=== PATIENT | male | born 1965 | race Caucasian/White ===

== ENCOUNTER 2023-05-26 14:48 | Outpatient (RCR) | payer MEDICAID, SELFPAY | END 2023-06-21 15:38 | disposition home or self-care (01) | LOC: PT 14:48 | DX: M54.17 Radiculopathy, lumbosacral region (principal) | CPT/HCPCS: 97010; 97014; 97035; 97110; 97140; 97161 ==

== ENCOUNTER 2023-08-04 13:51 | Outpatient (OUT) | payer MEDICAID, SELFPAY ==
--- NOTE | 2023-08-04 14:01 | MR_ITS ---
[facility] [id number] Patient Name: ROSA MCNAMARA MRN: [id number] date: 1965 Sex: M Assigned Patient Location: MRI Current Patient Location: MRI Accession/Order Number: [id number] Exam Date: 08/04/2023 14:33 Report Date: 08/04/2023 15:49 At the request of: NON-STAFF PHYSICIAN Procedure: MR lumbar spine wo con TITLE: MR lumbar spine wo con COMPARISON: None. CLINICAL HISTORY: Chronic lower back pain. Right lower extremity weakness TECHNIQUE: Sagittal T1, sagittal T2 FSE, sagittal STIR, and axial T2 FSE. FINDINGS: Alignment is normal. There is no listhesis nor vertebral body height loss. The conus medullaris terminates at L1-2 and appears normal. There is disc desiccation lower 4 lumbar levels. Probable hemangiomas at T12, L2, and L5 T12-L1: Normal disc space. No stenosis L1-L2:Normal disc space. No stenosis. L2-3: Mild disc bulge. No significant stenosis L3-4: Mild disc bulge. Right posterior central annular tear with minimal disc protrusion. Bilateral facet hypertrophy. Hwrj-ey-uncliotf right lateral recess and foraminal narrowing L4-5: Diffuse disc bulge. Central disc protrusion. Bilateral facet hypertrophy. Mild to moderate lateral recess narrowing L5-S1: Disc bulge with mild left paracentral disc protrusion. Lateral osteophyte and disc formation with facet hypertrophy. Mild central stenosis. Zybk-ie-cfkzdoet lateral recess and moderate left-sided foraminal narrowing The visualized sacral joints appear unremarkable MR/MR lumbar spine wo con IMPRESSION: DEGENERATIVE CHANGES MOST MARKED LOWER 4 LUMBAR LEVELS. DISC BULGES, DISC SPACE NARROWING, DISC DESICCATION. NO SIGNIFICANT CENTRAL STENOSIS. SMALL ANNULAR TEAR L3-4 SMALL CENTRAL DISC PROTRUSION L4-5 AND L5-S1 FACET HYPERTROPHY LOWER 3 LUMBAR LEVELS. Electronically authenticated by: EDIE KNOWLES Date: 08/04/2023 15:49
== END 2023-08-04 13:52 | disposition home or self-care (01) ==
LOC: MRI 13:53
DX: M54.17 Radiculopathy, lumbosacral region (principal)
CPT/HCPCS: 72148

== ENCOUNTER 2023-08-30 19:18 | Emergency (ER) | payer MEDICAID, SELFPAY ==
[2023-08-30 19:22] VITALS: BP 174/78; PULSE 78; RESP 18; TEMP 36.8; O2SAT 97; BMI 32.5
[2023-08-30 19:29] VITALS: O2SAT 97
--- NOTE | 2023-08-30 20:23 | ED.EAR1 ---
HPI - Ear Problem General Chief complaint: Ear Stated complaint: EAR PAIN Time Seen by Provider: 08/30/23 20:08 Source: patient Mode of arrival: walk-in History of Present Illness HPI Narrative: presents complaining of right ear pain. States it started today. Describes pain radiating from his ear into his neck and then his chest. Admits the pain is now easing up. No fever or injury. no cough or dyspnea. No problem swallowing and hearing is normal. no dizziness MD Complaint: Reports ear pain Related Data Home Medications Medication Instructions Recorded Confirmed epinephrine 0.3 mg/0.3 mL 0.3 mg IM DAILY PRN anaphylaxis 08/30/23 08/30/23 injection, auto-injector latanoprost 0.005 % eye drops 1 drp ophthalmic (eye) .QHS 08/30/23 08/30/23 omeprazole 40 mg capsule,delayed 40 mg PO QAM 08/30/23 08/30/23 release rosuvastatin 5 mg tablet 5 mg PO DAILY 08/30/23 08/30/23 Allergies Allergy/AdvReac Type Severity Reaction Status Date / Time bee venom protein (honey bee) Allergy Severe Verified 08/30/23 19:26 Penicillins Allergy Severe Verified 08/30/23 19:26 Review of Systems ROS Status of ROS 10 or more systems reviewed and unremarkable except as noted in history and below Exam Constitutional Vital Signs, click to edit/add: Last Vital Signs Temp 98.2 F 08/30/23 19:22 Pulse 78 08/30/23 19:22 Resp 18 08/30/23 19:22 BP 174/78 H 08/30/23 19:22 Pulse Ox 97 08/30/23 19:29 O2 Del Method Room Air 08/30/23 19:29 Common normals: no apparent distress, average body habitus, oriented x3, no limitations, healthy appearing and alert [facility] Common normals: normocephalic and head/scalp atraumatic Other: right mandible tender at the angle of the mandible and reproduces symptoms ear exam is neg. pharynx is clear Eye Common normals: EOMs intact bilaterally and conjunctivae normal Chest Common normals: inspection of chest normal and palpation of chest normal Respiratory Common normals: normal respiratory effort, no retractions and no use of accessory muscles Cardio Common normals: regular rate, regular rhythm, S1 normal heart sound and S2 normal heart sound Extremity Common normals: normal to inspection and full ROM Neuro Common normals: oriented x3, CN's II-XII intact bilaterally, moves all extremities and no focal motor deficits Psych Appearance: grossly normal Course Vital Signs Vital signs: Vital Signs Temperature 98.2 F 08/30/23 19:22 Pulse Rate 78 08/30/23 19:22 Respiratory Rate 18 08/30/23 19:22 Blood Pressure 174/78 H 08/30/23 19:22 Pulse Oximetry 97 08/30/23 19:22 Oxygen Delivery Method Room Air 08/30/23 19:22 Temperature 98.2 F 08/30/23 19:22 Pulse Rate 78 08/30/23 19:22 Respiratory Rate 18 08/30/23 19:22 Blood Pressure 174/78 H 08/30/23 19:22 Pulse Oximetry 97 08/30/23 19:29 Oxygen Delivery Method Room Air 08/30/23 19:29 Medical Decision Making MDM Narrative Medical decision making narrative: patient presents complaining of pain of the right ear. Ear exam is neg. Found to have point tenderness of the right angle of the mandible that reproduces symptoms. States pain radiates from his mandible into his neck and then his chest. States the pain has gone away pretty much but the ear still hurts. With palpation of the mandible pain was reproducible. labs with mild elevation of CRP and cxray neg. Patient adivised to use ibuprofen if he needs to and to follow up with his doctor Discharge Plan Discharge Chief Complaint: Ear Clinical Impression: Mandible pain Patient Disposition: Home, Self-Care Prescriptions / Home Meds: No Action epinephrine 0.3 mg/0.3 mL auto-injector 0.3 mg IM DAILY PRN (Reason: anaphylaxis) latanoprost 0.005 % drops 1 drp OPHTHALMIC (EYE) .QHS omeprazole 40 mg capsule,delayed release(DR/EC) 40 mg PO QAM rosuvastatin 5 mg tablet 5 mg PO DAILY Instructions: Atypical Facial Pain (ED) Additional Instructions: use motrin or similar for pain and follow up with your doctor next week Stand Alone Forms: Portal Instructions Referrals: Britt Goodman [Primary Care Provider] - 1 week
--- NOTE | 2023-08-30 20:27 | XR_ITS ---
[facility] [id number] Patient Name: ROSA MCNAMARA MRN: [id number] date: 1965 Sex: M Assigned Patient Location: ER Current Patient Location: ER Accession/Order Number: [id number] Exam Date: 08/30/2023 20:48 Report Date: 08/30/2023 21:07 At the request of: MERCEDES ENRIQUEZ Procedure: XR chest 2V EXAM: XR chest 2V HISTORY: chest pain COMPARISON: 08/10/2022 TECHNIQUE: PA and lateral views of the chest FINDINGS: There is no focal airspace consolidation. The cardiomediastinal silhouette is not enlarged. There are stable eventration of right hemidiaphragm. No evidence of pleural effusion or pneumothorax are identified. No acute osseous abnormality. There is stable mild levoscoliosis and mild to moderate degenerative changes of thoracic spine. XR/XR chest 2V IMPRESSION: No acute cardiopulmonary process. . Electronically authenticated by: SHMUEL CAMERON Date: 08/30/2023 21:07
[2023-08-30 20:48] LABS: Basophils Absolute Auto 0.1 10^3/uL (0.0-0.1); Basophils Percent Auto 1.2 % (0.2-2.0); Eosinophils Absolute Auto 0.3 10^3/uL (0.0-0.7); Eosinophils Percent Auto 2.3 % (0.9-7.0); Hematocrit 40.6 % (42.0-54.0); Hemoglobin 13.8 g/dL (14.0-18.0); Immature Granulocytes Abs Auto 0.03 10^3/uL (0.00-0.03); Immature Granulocytes Pct Auto 0.3 % (0.0-0.5); Lymphocytes Absolute Auto 2.6 10^3/uL (1.2-3.8); Lymphocytes Percent Auto 23.2 % (20.5-60.0); Mean Corpuscular Volume 91.2 fL (80.0-94.0); Mean Platelet Volume 9.1 fL (9.5-13.5); Monocytes Absolute Auto 1.3 10^3/uL (0.3-0.8); Monocytes Percent Auto 11.6 % (1.7-12.0); Neutrophils Absolute Auto 6.8 10^3/uL (1.4-6.5); Neutrophils Percent Auto 61.4 % (43.0-75.0); Platelet Count 259 10^3/uL (150-450); Red Blood Count 4.45 10^6/uL (4.70-6.10); Red Cell Distribution Width 12.1 % (11.0-15.0); White Blood Count 11.1 10^3/uL (4.0-11.0)
[2023-08-30 20:59] LABS: Anion Gap 11.8; BUN Creatinine Ratio 15.4; C Reactive Protein 3.1 mg/dL (<=1.0); Calcium 8.5 mg/dL (8.5-10.1); Carbon Dioxide 24.8 mmol/L (21.0-32.0); Chloride 102 mmol/L (98-107); Estimated GFR (African America >60 (>=60); Estimated GFR (Non-African Ame >60 (>=60); Glucose 105 mg/dL (74-106); Potassium 3.6 mmol/L (3.5-5.1); Sodium 135 mmol/L (136-145)
== END 2023-08-30 21:47 | disposition home or self-care (01) ==
PROVIDERS: Emergency Provider Internal Medicine; PCP Family Medicine
DX: R68.84 Jaw pain (principal); Z79.899 Other long term (current) drug therapy
CPT/HCPCS: 36415; 71046; 80048; 85025; 86140; 99284

== ENCOUNTER 2023-12-08 11:36 | Outpatient (OUT) | payer MEDICAID, SELFPAY ==
--- OUTSIDE RECORDS SUMMARY | 2023-12-08 11:40 | XMS_ITS | CCD ---
Author Name Unknown Address [address] [facility] [address] [place] [address] Organization [facility] Care Team Providers Care Fire Controlman Name Role Phone Harvey Holt Unavailable NON STAFF Primary Care Provider UnavailDAPHNEY Sotelo Attending Provider Rumschlayamila, DO Britt Primary Care Provider Rex, DO Britt Primary Care Provider MD Josué Evangelista Attending Provider Rumcoco, DO Britt Primary Care Provider MD Josué Evangelista Attending Provider Candida Hinkle Admitting Unavailable Candida Hinkle Attending Unavailable NON STAFF Primary Care Unavailable Josué Evangelista Admitting Unavailable Josué Evangelista Attending Unavailable Rumschlag, Britt Primary Care Unavailable Josué Evangelista Admitting Unavailable Josué Evangelista Attending Unavailable Rumschlag, Britt Primary Care Unavailable Josué Evangelista Attending Unavailable Rumschlag, Britt Primary Care Unavailable Josué Evangelista Admitting Unavailable Candida Hinkle Admitting Unavailable Candida Hinkle Attending Unavailable Rumschlag, Britt Primary Care Unavailable Josué Evangelista Unavailable [facility] Primary Care Unava ilable MITCHELL TRAYLOR Admitting Unavailable MERCEDES ENRIQUEZ Consulting Unavailable MITCHELL TRAYLOR Attending Unavailable JONN HARGROVE Consulting Unavailable MITCHELL TRAYLOR Consulting Unavailable MISC, DR GARCIAS Attending Unavailable MISC, DR GARCIAS Consulting Unavailable [facility] Primary Care Unava ilable RADHA, DR GARCIAS Admitting Unavailable RUMSCHLAG, BRITT Primary Care Unavailable YVONNE CAMARENA Referring Unavailable YVONNE CAMARENA Referring Unavailable RUMSCHLAG, BRITT Primary Care Unavailable CANDIS RENTERIA Admitting Unavailable CANDIS RENTERIA Attending Unavailable BRITT PENALOZA Primary Care Unavailable Allergies Allergy Classification Reported Allergen(s) Allergy Type Date of Onset Reaction(s) Facility (7 sources) penicillAMINE Drug Allergy Unknown [facility] Other (7 sources) Bee Sting Drug allergy Unknown [facility] Other (5 sources) Penicillins; Translations: [Penicillins] Allergy to substance 10-02-20 21 Unknown Reaction [facility] (5 sources) venom-honey bee; Translations: [venom-honey bee] Allergy to substance 10-02-20 21 Swelling [facility] (1 source) bee venom Drug allergy (disorder) [facility] (1 source) Penicillin Drug Allergy [facility] Medications Current Medications Medication Drug Class(es) Dates Sig (Normalized) Sig (Original) acetaminophen 500 mg oral tablet (2 sources) Start: 01-13-2023 take 1000 mg by mouth twice daily Acetaminophen Active 1000 MG PO Twice daily January 13, 2023 1:00am Start: 01-13-2023 Acetaminophen (Tylenol Ex Str Arthritis Pain) 500 mg Tablet Active 1000 MG PO Twice daily January 13, 2023 12:00am 12 hr buPROPion hydrochloride 150 mg extended release oral tablet (4 sources) Aminoketone take 1 tablet by mouth once daily, then take 1 tablet by mouth twice daily buPROPion HCl ER (SR) 150 MG take 1 tablet by mouth daily for 1 week then take 1 tablet twice a day Oral for 30 Active calcium carbonate 500 mg chewable tablet (2 sources) Start: 01-14-20 take 1 tablet by mouth twice daily Calcium Carbonate (Tums) 200 mg calcium (500 mg) Tablet,Chewable Active 600 MG PO Twice daily January 13, 2023 1:00am cephalexin 500 mg oral capsule (1 source) Cephalosporin Antibacterial Start: 01-23-20 take 500 mg by mouth three times daily Cephalexin Active 500 MG PO Three times daily January 22, 2023 12:00am ibuprofen 200 mg oral tablet (2 sources) Nonsteroidal Anti-inflammatory Drug Start: 01-14-20 take 400 mg by mouth once daily Ibuprofen Active 400 MG PO Daily January 13, 2023 1:00am latanoprost 0.05 mg/ml ophthalmic solution (11 sources) Prostaglandin Analog Start: 10-02-20 take 1 drop(s) into the eye(s) once daily at bedtime Latanoprost Active 1 DROPS EYE-BOTH Daily at bedtime October 02, 2021 1:00am Latanoprost 0.00 5 % Ophthalmic for 25 Active Latanoprost 0.00 5 % Ophthalmic for 25 Active olopatadine 2 mg/ml ophthalmic solution (1 source) Histamine-1 Receptor Inhibitor Start: 01-22-2023 take 1 drop(s) into the eye(s) once daily Olopatadine Active 1 DROPS EYE-BOTH Daily January 22, 2023 12:00am oxyCODONE hydrochloride 5 mg oral tablet (5 sources) Opioid Agonist Start: 01-22-2023 take 5-10 mg by mouth every six hours Oxycodone Active 5 - 10 MG PO Q6H 25 8 January 22, 2023 Start: 10-17-2021 End: 01-13-2023 take 5 mg by mouth every four to six hours Oxycodone Discontinued 5 MG PO EVERY 4-6 HOURS 70 14 October 17, 2021 January 13, 2023 9:23am rosuvastatin calcium 5 mg oral tablet (5 sources) HMG-CoA Reductase Inhibitor Start: 01-13-2023 take 5 mg by mouth once daily Rosuvastatin Active 5 MG PO Daily January 13, 2023 1:00am Completed/Discontinued Medications Medication Drug Class(es) Dates Sig (Normalized) Sig (Original) diazePAM 5 mg oral tablet (4 sources) Benzodiazepine Start: 10-17-2021 End: 01-13-2023 take 5 mg by mouth four times daily Diazepam Discontinued 5 MG PO Four times daily 40 10 October 17, 2021 1:00am January 13, 2023 9:23am Problems Active Problems Problem Classification Problem Date Documented Da te Episodic/Chronic Esophageal disorders (1 source) Gastro-esophageal reflux disease without esophagitis; Translations: [Gastro-esophageal reflux disease without esophagitis] Onset: 10-15-2023 Chronic Gastrointestinal hemorrhage (1 source) Melena; Translations: [Melena] Onset: 10-14-2023 Episodic Other gastrointestinal disorders (1 source) Flatulence; Translations: [Flatulence] Onset: 10-15-2023 Episodic Other gastrointestinal disorders (1 source) Gas pain; Translations: [Gas pain] Onset: 10-15-2023 Episodic Other gastrointestinal disorders (1 source) Eructation; Translations: [Eructation] Onset: 10-15-2023 Episodic Other nervous system disorders (5 sources) Ulnar neuropathy; Translations: [Lesion of ulnar nerve, right upper limb] Chronic Other nervous system disorders (7 sources) Lesion of ulnar nerve, right upper limb; Translations: [Entrapment of right ulnar nerve at elbow] Onset: 01-14-2022 Resolved: 03-13-2022 Chronic Residual codes; unclassified (4 sources) Obstructive sleep apnea (adult) (pediatric); Translations: [OBSTRUCTIVE SLEEP APNEA] Onset: 03-04-2023 Chronic Spondylosis; intervertebral disc disorders; other back problems (20 sources) Prolapsed cervical intervertebral disc; Translations: [Other cervical disc displacement, unspecified cervical region] Onset: 09-19-2021 Resolved: 03-13-2022 Chronic Unclassified (1 source) Lesion of ulnar nerve, right upper limb; Translations: [Lesion of ulnar nerve, right upper limb] Onset: 01-22-2023 Unclassified (1 source) Encounter for preprocedural laboratory examination; Translations: [Encounter for preprocedural laboratory examination] Onset: 01-13-2023 Past or Other Problems Problem Classification Problem Date Documented Da te Episodic/Chronic Nonspecific chest pain (1 source) Other chest pain; Translations: [OTHER CHEST PAIN] Onset: 08-12-2022 Episodic Other connective tissue disease (3 sources) Pain in left upper arm; Translations: [PAIN IN LEFT UPPER ARM] Onset: 08-10-2022 Episodic Residual codes; unclassified (1 source) Other amnesia; Translations: [Other amnesia] Onset: 06-21-2022 Episodic Results Test Name Value Interpretation Reference Range Facility H. pylori Antigenon 10-16-20 H. pylori Antigen Specimen Description .FECES Direct Exam NEGATIVE Report Status FINAL 10/16/2023 Normal [facility] Comment on above: Performed By: #### F HPY #### [facility] [employer] [address] [place] [address] Wheat Farmer: Guy Ramey MD [facility] [address] [place] [address] Wheat Farmer: Justus Darby MD Surgical Pathology Reporton 10-15-2023 Surgical Pathology Report (NOTE) Path Number: [id number] -- Diagnosis -- A. 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 No dysplasia seen. B. Stomach, antrum, endoscopic biopsy: Superficial gastric antral mucosa with no specific abnormality, negative for Helicobacter pylori. Dianelys Mcgraw. Electronically Signed Out sf/10/17/2023 Clinical Information Pre-op Diagnosis: GASTROESOPHAGEAL REFLUX DISEASE, UNSPECIFIED WHETHER ESOPHAGITIS PRESENT Operative Findings: GE JUNCTION BIOPSY; GASTRIC ANTRUM BIOPSY Operation Performed: EGD BIOPSY tm Source of Specimen A: GE JUNCTION BX B: GASTRIC ANTRUM BIOPSY Gross Description A. ROSA EASTMAN GE JUNCTION BIOPSY Received in formalin are four gutierrez-white tissue fragments each 0.2 cm and are 0.4 x 0.2 x 0.1 cm in aggregate. Entirely 1cs. B. ROSA EASTMAN GASTRIC ANTRUM BIOPSY Received in formalin are two gutierrez-white tissue fragments from 0.3 to 0.4 cm and are 0.4 x 0.4 x 0.2 cm in aggregate. Entirely 1cs. lm tm SF/tb1:10/16/2023 Microscopic Description A, B. 2 DENNISE reviewed for each. Microscopic examination performed. Processing Lab: [address] [id number] Interpretation Performed at [address] SURGICAL PATHOLOGY CONSULTATION Patient Name: ROSA EASTMAN [facility] Rec: [id number] [facility] [employer] [facility] ANATOMIC PATHOLOGY [address] [place] [address]. [address] Normal [facility] CBC with Diffon 10-14-2023 Abs. Basophil 0.17 k/uL Normal 0.00-0.20 [facility] Comment on above: Performed By: #### C DP #### [facility] [address] [place] [address] Wheat Farmer: Justus Darby MD Abs.Imm.Granulocyte 0.04 k/uL Normal 0.00-0.30 [facility] Comment on above: Performed By: #### C DP #### [facility] [address] [place] [address] Dr. [place], [place] [address] Wheat Farmer: Justus Darby MD Abs.Neutrophil (Seg) 5.08 k/uL Normal 1.50-8.10 [facility] Comment on above: Performed By: #### C DP #### [address] [place], [place] [address] Wheat Farmer: Justus Darby MD Basophils/100 WBC (Bld) 2 % Normal 0-2 [facility] Comment on above: Performed By: #### C DP #### [address] [place] [place] [address] Wheat Farmer: Justus Darby MD Eosinophils (Bld) [#/Vol] 0.43 10*3/uL Normal 0.00-0.44 [facility] Comment on above: Performed By: #### C DP #### [address] [place], [place] [address] Wheat Farmer: Justus Darby MD Eosinophils/100 WBC (Bld) 4 % Normal 1-4 [facility] Comment on above: Performed By: #### C DP #### [facility] [address] [place] [address] Dr. Garcia, [place] [address] Wheat Farmer: Justus Darby MD Erythrocyte distribution width (RBC) [Ratio] 12.3 % Normal 11.8-14.4 [facility] Comment on above: Performed By: #### C DP #### [address] [place], [place] [address] Wheat Farmer: Justus Darby MD Hematocrit (Bld) [Volume fraction] 44.4 % Normal 40.7-50.3 [facility] Comment on above: Performed By: #### C DP #### [facility] [address] [place], [place] [phone] Wheat Farmer: Justus Darby MD Hemoglobin (Bld) [Mass/Vol] 14.6 g/dL Normal 13.0-17.0 [facility] Comment on above: Performed By: #### C DP #### [facility] [address] [place] [phone] Wheat Farmer: Justus Darby MD Immature granulocytes/100 WBC (Bld) 0 % Normal 0 [facility] Comment on above: Performed By: #### C DP #### [facility] [address] [place], [id number] Wheat Farmer: Justus Darby MD Lymphocytes (Bld) [#/Vol] 3.86 10*3/uL High 1.10-3.70 [facility] Comment on above: Performed By: #### C DP #### [facility] [address] [place], [place] [phone] Wheat Farmer: Justus Darby MD Lymphocytes/100 WBC (Bld) 36 % Normal 24-43 [facility] Comment on above: Performed By: #### C DP #### [facility] [address] [place], [place] [phone] Wheat Farmer: Justus Darby MD MCH (RBC) [Entitic mass] 30.9 pg Normal 25.2-33.5 [facility] Comment on above: Performed By: #### C DP #### [facility] [address] [place], [place] [phone] Wheat Farmer: Justus Darby MD MCHC (RBC) [Mass/Vol] 32.9 g/dL Normal 28.4-34.8 [facility] Comment on above: Performed By: #### C DP #### [facility] [address] [place], [place] [phone] Wheat Farmer: Justus Darby MD MCV (RBC) [Entitic vol] 93.9 fL Normal 82.6-102.9 [facility] Comment on above: Performed By: #### C DP #### [facility] [address] [place], [place] [phone] Wheat Farmer: Justus Darby MD Monocytes (Bld) [#/Vol] 1.05 10*3/uL Normal 0.10-1.20 [facility] Comment on above: Performed By: #### C DP #### [facility] [address] [place], [place] [phone] Wheat Farmer: Justus Darby MD Monocytes/100 WBC (Bld) 10 % Normal 3-12 [facility] Comment on above: Performed By: #### C DP #### [address] [place], [place] [phone] Wheat Farmer: Justus Darby MD Neutrophil (Seg) 48 % Normal 36-65 [facility] Comment on above: Performed By: #### C DP #### [address] [place], [place] [phone] Wheat Farmer: Justus Darby MD NRBC Automated 0.0 per 100 WBC Normal 0.0 [facility] Comment on above: Performed By: #### C DP #### [address] [place], [id number] Wheat Farmer: Justus Darby MD Platelet mean volume (Bld) [Entitic vol] 9.6 fL Normal 8.1-13.5 [facility] Comment on above: Performed By: #### C DP #### [address] [place] [address] Wheat Farmer: Justus Darby MD Platelets (Bld) [#/Vol] 297 10*3/uL Normal 138-453 [facility] Comment on above: Performed By: #### C DP #### [facility] [address] [place] [address] Wheat Farmer: Justus Darby MD RBC (Bld) [#/Vol] 4.73 10*6/uL Normal 4.21-5.77 [facility] Comment on above: Performed By: #### C DP #### [facility] [address] [place] [address] Wheat Farmer: Justus Darby MD WBC (Bld) [#/Vol] 10.6 10*3/uL Normal 3.5-11.3 [facility] Comment on above: Performed By: #### C DP #### [facility] [address] [place] [address] Wheat Farmer: Justus Darby MD Basic Metabolic Panelon 03-0 Anion gap [Moles/Vol] 9.8 mmol/L Normal 6.0-15.0 [facility] Comment on above: Performed By: #### C BC, BMP #### [facility] [address] [place] [address] [facility] Calcium [Mass/Vol] 9.1 mg/dL Normal 8.2-10.2 [facility] Comment on above: Result Comment: PERF ORMED BY: [place] [address] PATHOLOGIST INSTRUMENT WORKER GENEVIEVE CANNON M.D. Performed By: #### C BC, BMP #### [facility] [address] [place] [address] [place] Chloride [Moles/Vol] 104 mmol/L Normal 95-114 [facility] Comment on above: Performed By: #### C BC, BMP #### [facility] [address] [place] [address] [place] CO2 [Moles/Vol] 25.9 mmol/L Normal 22.0-30.0 [facility] Comment on above: Performed By: #### C BC, BMP #### [facility] [address] [place] [address] [place] Creatinine [Mass/Vol] 0.98 mg/dL Normal 0.64-1.27 [facility] Comment on above: Performed By: #### C BC, BMP #### [address] Estimated GFR ( Camila > 60 Normal [facility] Comment on above: Result Comment: GFR estimated reference range: According to KDOQI guidelines, <60 ml/min/1.73m2 is sufficient to diagnose a patient with chronic kidney disease. Performed By: #### C BC, BMP #### [address] Estimated GFR (Non- Am > 60 Normal [facility] Comment on above: Performed By: #### C BC, BMP #### [address] Glucose [Mass/Vol] 82 mg/dL Normal 70-100 [facility] Comment on above: Result Comment: [place] om Glucose Reference Range is dependent on time and content of last meal. Glucose of more than 200 mg/dL in a nonstressed, ambulatory subject supports the diagnosis of Diabetes Mellitus. ADA recommended reference range Performed By: #### C BC, BMP #### [address] Potassium [Moles/Vol] 3.7 mmol/L Normal 3.5-5.1 [facility] Comment on above: Performed By: #### C BC, BMP #### [address] Sodium [Moles/Vol] 136 mmol/L Normal 136-146 [facility] Comment on above: Performed By: #### C BC, BMP #### [address] Urea nitrogen [Mass/Vol] 11 mg/dL Normal 9-23 [facility] Comment on above: Performed By: #### C BC, BMP #### [address] Basophils Auto (Bld) [#/Vol] Ordered By: Josué Evangelista on 01-13-2023 Basophils (Bld) [#/Vol] 0.1 10*3/uL 0.0-0.2 [facility] Basophils/100 WBC Auto (Bld) Ordered By: Josué Evangelista on 01-13-2023 Basophils/100 WBC (Bld) 1.2 % . F [facility] Calcium [Mass/volume] in Ser um or PlasmaOrdered By: Josué Evangelista on 01-13-2023 Calcium [Mass/Vol] 9.1 mg/dL 8.2-10.2 [facility] Carbon dioxide, total [Moles /volume] in Serum or PlasmaOrdered By: Josué Evangelista on 01-13-2023 CO2 [Moles/Vol] 25.9 mmol/L 22.0-30.0 [facility] Chloride [Moles/volume] in S lai or PlasmaOrdered By: Josué Evangelista on 01-13-2023 Chloride [Moles/Vol] 104 mmol/L 95-114 [facility] Complete Blood Count Auto Di ffon 01-13-2023 Basophils (Bld) [#/Vol] 0.1 10*3/uL Normal 0.0-0.2 [facility] Comment on above: Result Comment: PERF ORMED BY: [place] [address] PATHOLOGIST INSTRUMENT WORKER GENEVIEVE CANNON M.D. Performed By: #### C MICHELLE, BMP #### [facility] [address] Basophils/100 WBC (Bld) 1.2 % Normal . [facility] Comment on above: Performed By: #### C BC, BMP #### [facility] [address] [place] [address] [place] Eosinophils (Bld) [#/Vol] 0.5 10*3/uL High 0.0-0.45 [facility] Comment on above: Performed By: #### C BC, BMP #### [facility] [address] [place] [address] [place] Eosinophils/100 WBC (Bld) 4.7 % Normal . [facility] Comment on above: Performed By: #### C BC, BMP #### [facility] [address] Erythrocyte distribution width (RBC) [Ratio] 12.6 % Normal 12.0-14.8 [facility] Comment on above: Performed By: #### C BC, BMP #### [facility] [address] Hematocrit (Bld) [Volume fraction] 41.2 % Normal 38.8-50.0 [facility] Comment on above: Performed By: #### C BC, BMP #### [facility] [address] Hemoglobin (Bld) [Mass/Vol] 14.1 g/dL Normal 13.0-17.0 [facility] Comment on above: Performed By: #### C BC, BMP #### [address] Lymphocytes (Bld) [#/Vol] 3.4 10*3/uL Normal 1.00-4.8 [facility] Comment on above: Performed By: #### C BC, BMP #### [address] Lymphocytes/100 WBC (Bld) 33.3 % Normal . [facility] Comment on above: Performed By: #### C BC, BMP #### [address] MCH (RBC) [Entitic mass] 31.7 pg Normal 27.5-35.2 [facility] Comment on above: Performed By: #### C BC, BMP #### [facility] [address] MCV (RBC) [Entitic vol] 92.3 fL Normal 83.5-101 F [facility] Comment on above: Performed By: #### C BC, BMP #### [facility] [address] Mean Corpuscular HGB Conc 34.4 g/dL Normal 32.5-35.6 [facility] Comment on above: Performed By: #### C BC, BMP #### [facility] [address] [place] [address] [place] Monocytes (Bld) [#/Vol] 1.0 10*3/uL High 0.0-0.8 [facility] Comment on above: Performed By: #### C BC, BMP #### [facility] [address] [place] [address] [place] Monocytes/100 WBC (Bld) 10.1 % Normal . [facility] Comment on above: Performed By: #### C BC, BMP #### [facility] [address] [place] [address] [place] Neutrophils (Bld) [#/Vol] 5.2 10*3/uL Normal 1.8-7.7 [facility] Comment on above: Performed By: #### C BC, BMP #### [facility] [address] Neutrophils/100 WBC (Bld) 50.7 % Normal . [facility] Comment on above: Performed By: #### C BC, BMP #### [facility] [address] [place] [address] [place] NRBC% 0.1 /100{WBC} Normal 0-0.5 [facility] Comment on above: Performed By: #### C BC, BMP #### [facility] [address] [place] [address] [place] Platelet mean volume (Bld) [Entitic vol] 7.8 fL Normal 6.6-10.1 [facility] Comment on above: Performed By: #### C BC, BMP #### [facility] [address] [place] [address] [place] Platelets (Bld) [#/Vol] 268 10*3/uL Normal 150-450 [facility] Comment on above: Performed By: #### C BC, BMP #### [facility] [address] [place] [address] [place] RBC (Bld) [#/Vol] 4.46 10*6/uL Normal 3.90-5.60 [facility] Comment on above: Performed By: #### C BC, BMP #### [facility] [address] WBC (Bld) [#/Vol] 10.3 10*3/uL Normal 4.1-10.5 [facility] Comment on above: Performed By: #### C MICHELLE, BMP #### [facility] [address] [place] [address] Creatinine and Glomerular fi ltration rate.predicted panel (S/P/Bld)Ordered By: Josué Evangelista on 01-13-2023 Creatinine [Mass/Vol] 0.98 mg/dL 0.64-1.27 [facility] ECG 12 lead ECGon 01-13-2023 ECG 12 lead ECG [facility] [address] [place] [address] [place] [address] Electrocardiograph Report Signed Patient: Rosa Eastman MR#: [id number] : [id number] Acct:[id number] Age/Sex: 57 / M ADM Date: 01/13/23 Loc: Room: Type: [employer] Attending Dr: Josué Evangelista MD Ordering Provider: Josué Evangelista MD Date of Service: 01/13/2305/02/758 ECG/ECG 12 lead ECG: surgery 01-22-2023 Copies to: Test Reason : Blood Pressure : / mmHG Vent. Rate : 068 BPM Atrial Rate : 068 BPM P-R Int : 158 ms QRS Dur : 096 ms QT Int : 424 ms P-R-T Axes : 036 043 038 degrees QTc Int : 450 ms Normal sinus rhythm Normal ECG When compared with ECG of 02-OCT-2021 15:20, No significant change was found Confirmed by MARYLIN EISENBERG MD ([id number]) on 01/14/2023 3:34:12 PM Referred By: DR EVANGELISTA Electronically Signed By:MARYLIN EISENBERG MD Transcribed By: MUS Signed By Marylin Eisenberg MD 0 01/14/23 1534 Normal [facility] Eosinophils Auto (Bld) [#/Vo l]Ordered By: Josué Evangelista on 01-13-2023 Eosinophils (Bld) [#/Vol] 0.5 10*3/uL 0.0-0.45 [facility] Eosinophils/100 WBC Auto (Bl d)Ordered By: Josué Evangelista on 01-13-2023 Eosinophils/100 WBC (Bld) 4.7 % . [facility] Erythrocyte distribution wid th Auto (RBC) [Ratio]Ordered By: oJsué Evangelista on 01-13-2023 Erythrocyte distribution width (RBC) [Ratio] 12.6 % 12.0-14.8 [facility] Estimated glomerular filtrat ion rate (GFR) non- AmericanOrdered By: Josué Evangelista on 01-13-2023 GFR/1.73 sq M.predicted among non-blacks MDRD (S/P/Bld) [Vol rate/Area] > 60 mL/Min [facility] Glucose [Mass/volume] in Ser um or PlasmaOrdered By: Josué Evangelista on 01-13-2023 Glucose [Mass/Vol] 82 mg/dL 70-100 [facility] Comment on above: ADA recommended refe rence rangeRandom Glucose Reference Range is dependent on time and content of last meal. Glucose of more than 200 mg/dL in a nonstressed, ambulatory subject supports the diagnosis of Diabetes Mellitus. Hematocrit Auto (Bld) [Volum e fraction]Ordered By: Josué Evangelista on 01-13-2023 Hematocrit (Bld) [Volume fraction] 41.2 % 38.8-50.0 [facility] Hemoglobin [Mass/volume] in BloodOrdered By: Josué Evangelista on 01-13-2023 Hemoglobin (Bld) [Mass/Vol] 14.1 g/dL 13.0-17.0 [facility] Leukocytes [#/volume] correc lesly for nucleated erythrocytes in Blood by Automated counOrdered By: Josué Evangelista on 01-13-2023 WBC corrected for nucl RBC Auto (Bld) [#/Vol] 10.3 10*3/uL 4.1-10.5 [facility] Lymphocytes Auto (Bld) [#/Vo l]Ordered By: Josué Evangelista on 01-13-2023 Lymphocytes (Bld) [#/Vol] 3.4 10*3/uL 1.00-4.8 [facility] Lymphocytes/100 WBC Auto (Bl d)Ordered By: Josué Evangelista on 01-13-2023 Lymphocytes/100 WBC (Bld) 33.3 % . [facility] MCH Auto (RBC) [Entitic mass ]Ordered By: Josué Evangleista on 01-13-2023 MCH (RBC) [Entitic mass] 31.7 pg 27.5-35.2 [facility] MCHC Auto (RBC) [Mass/Vol]Or dered By: Josué Evangelista on 01-13-2023 MCHC (RBC) [Mass/Vol] 34.4 g/dL 32.5-35.6 [facility] MCV Auto (RBC) [Entitic vol] Ordered By: Josué Evangelista on 01-13-2023 MCV (RBC) [Entitic vol] 92.3 fL 83.5-101 [facility] Monocytes Auto (Bld) [#/Vol] Ordered By: Josué Evangelista on 01-13-2023 Monocytes (Bld) [#/Vol] 1.0 10*3/uL 0.0-0.8 [facility] Monocytes/100 WBC Auto (Bld) Ordered By: Josué Evangelista on 01-13-2023 Monocytes/100 WBC (Bld) 10.1 % . [facility] Neutrophils Auto (Bld) [#/Vo l]Ordered By: Josué Evangelista on 01-13-2023 Neutrophils (Bld) [#/Vol] 5.2 10*3/uL 1.8-7.7 [facility] Neutrophils/100 WBC Auto (Bl d)Ordered By: Josué Evangelista on 01-13-2023 Neutrophils/100 WBC (Bld) 50.7 % . [facility] No Panel InformationOrdered By: Josué Evangelista on 01-13-2023 Estimated GFR () > 60 mL/Min [facility] Comment on above: GFR estimated refere nce range: According to KDOQI guidelines, <60 ml/min/1.73m2 is sufficient to diagnose a patient with chronic kidney disease. Pharmacy Creatinine Clearance (Chem N/A [facility] Nucleated erythrocytes [Pres ence] in Blood by Automated countOrdered By: Josué Evangelista on 01-13-2023 Nucleated RBC Auto Ql (Bld) 0.1 /100{WBC} 0-0.5 [facility] Platelet mean volume Auto (B ld) [Entitic vol]Ordered By: Josué Evangelista on 01-13-2023 Platelet mean volume (Bld) [Entitic vol] 7.8 fL 6.6-10.1 [facility] Platelets Auto (Bld) [#/Vol] Ordered By: Josué Evangelsita on 01-13-2023 Platelets (Bld) [#/Vol] 268 10*3/uL 150-450 [facility] Potassium [Moles/volume] in Serum or PlasmaOrdered By: Josué Evangelista on 01-13-2023 Potassium [Moles/Vol] 3.7 mmol/L 3.5-5.1 [facility] RBC Auto (Bld) [#/Vol]Ordere d By: Josué Evangelista on 01-13-2023 RBC (Bld) [#/Vol] 4.46 10*6/uL 3.90-5.60 [facility] Serum or plasma anion gap de terminationOrdered By: Josué Evangelista on 01-13-2023 Anion gap [Moles/Vol] 9.8 mmol/L 6.0-15.0 [facility] Sodium [Moles/volume] in Ser um or PlasmaOrdered By: Josué Evangelista on 01-13-2023 Sodium [Moles/Vol] 136 mmol/L 136-146 [facility] Urea nitrogen [Mass/volume] in Serum or PlasmaOrdered By: Josué Evangelista on 01-13-2023 Urea nitrogen [Mass/Vol] 11 mg/dL 9-23 [facility] WBC Auto (Bld) [#/Vol]Ordere d By: Josué Evangelista on 01-13-2023 WBC (Bld) [#/Vol] 10.3 10*3/uL 4.1-10.5 [facility] XR cerv spine AP/LAT/FLX/EXT on 12-06-2022 XR cerv spine AP/LAT/FLX/EXT [address] [address] XRay Report Signed Patient: Rosa Eastman MR#: [id number] 864 : 1965 Acct:[id number] Age/Sex: 57 / M ADM Date: 12/06/22 Loc: XD Room: Type: [facility] Attending Dr: Josué Evangelista MD Copies to: Josué vEangelista MD Ordering Provider: Josué Evangelista MD Date of Service: 12/06/22 XR/XR cerv spine AP/LAT/FLX/EXT: M47.12 AP with lateral neutral, flexion and extension views of thecervical spine HISTORY: Numbness in the right fifth digit COMPARISON: 01/14/2022 Bony alignment is stable. No hypermobility seen with flexion and extension views. C3-4 anterior interbody fusion changes are stable. Similar C4-5 and C5-6 and C6-7 anterior hyperostosis present. No acute cervical spine fracture identified. No cervical spine listhesis identified. Similar minor spondylosis. Similar mild facet degeneration. The dens is intact. The craniocervical junction is unremarkable. No paraspinal soft tissue abnormality seen. XR/XR cerv spine AP/LAT/FLX/EXT IMPRESSION: No hypermobility. Stable postoperative changes and degenerative changes and hyperostosis. Impression dictated by: Erasmo Maddox M.D.12/06/2022 2:26 PM Dictation Location: [place] [address] Transcribed By: [facility] 12/06/221425 Dictated By: Erasmo Maddox DO 12/06/221421 Signed By: 12/06/22 142 [facility] CBC AUTO DIFFon 08-10-2022 BASO # 0.2 103/ul Critically high 0.0-0.1 [facility] Comment on above: Performed By: #### C BC #### [facility] [address] [address] [address] Mars Sanders Basophils/100 WBC (Bld) 2.0 % Normal 0.2-2.0 [facility] Comment on above: Performed By: #### C BC #### [facility] [address] [address] [address] Mars Sanders EO # 0.5 103/ul Normal 0.0-0.7 [facility] Comment on above: Performed By: #### C BC #### [facility] [address] [place] [address] Dr. Mars Sanders Eosinophils/100 WBC (Bld) 5.7 % Normal 0.9-7.0 [facility] Comment on above: Performed By: #### C BC #### [facility] [address] [place] [address] Dr. Mars Sanders Erythrocyte distribution width (RBC) [Ratio] 12.4 % Normal 11.0-15.0 [facility] Comment on above: Performed By: #### C BC #### [facility] [address] [place] [address] Dr. Mars Sanders Hematocrit (Bld) [Volume fraction] 41.8 % Critically low 42.0-54.0 [facility] Comment on above: Performed By: #### C BC #### [facility] [address] [place] [address] Dr. Mars Sanders Hemoglobin (Bld) [Mass/Vol] 14.0 g/dL Normal 14.0-18.0 [facility] Comment on above: Performed By: #### C BC #### [facility] [address] [place] [address] Dr. Mars Sanders IG # 0.02 10e3/ul Normal 0.00-0.03 [facility] Comment on above: Performed By: #### C BC #### [facility] [address] [place] [address] Dr. Mars Sanders IG % 0.2 % Normal 0.0-0.5 [facility] Comment on above: Performed By: #### C BC #### [facility] [address] [place] [address] Dr. Mars Sanders LYMPH # 3.1 103/ul Normal 1.2-3.8 [facility] Comment on above: Performed By: #### C BC #### [facility] [address] [place] [address] Dr. Mars Sanders Lymphocytes/100 WBC (Bld) 36.3 % Normal 20.5-60.0 [facility] Comment on above: Performed By: #### C BC #### [facility] [address] [place] [address] Dr. Mars Sanders MANUAL DIFF REQ NO Normal [facility] Comment on above: Performed By: #### C BC #### [facility] [address] [place] [address] Dr. Mars Sanders MCH (RBC) [Entitic mass] 31.4 pg Normal 25.9-34.0 [facility] Comment on above: Performed By: #### C BC #### [facility] [address] [place] [address] Dr. Mars Sanders MCHC (RBC) [Mass/Vol] 33.5 g/dL Normal 29.9-35.2 [facility] Comment on above: Performed By: #### C BC #### [facility] [address] [place] [address] Dr. Mars Sanders MCV (RBC) [Entitic vol] 93.7 fL Normal 80.0-94.0 [facility] Comment on above: Performed By: #### C BC #### [facility] [address] [place] [address] Dr. Mars Sanders MONO # 0.8 103/ul Normal 0.3-0.8 [facility] Comment on above: Performed By: #### C BC #### [facility] [address] [place] [address] Dr. Mars Sanders Monocytes/100 WBC (Bld) 10.0 % Normal 1.7-12.0 [facility] Comment on above: Performed By: #### C BC #### [facility] [address] [place] [address] Dr. Mars Sanders NEUT # 3.9 103/ul Normal 1.4-6.5 [facility] Comment on above: Performed By: #### C BC #### [facility] [address] [place] [address] Dr. Mars Sanders Neutrophils/100 WBC (Bld) 45.8 % Normal 43.0-75.0 [facility] Comment on above: Performed By: #### C BC #### [facility] [address] [place], [place] [id number] Dr. Mars Sanders Platelet mean volume (Bld) [Entitic vol] 9.4 fL Critically low 9.5-13.5 [facility] Comment on above: Performed By: #### C BC #### [facility] [address] [place] [address] Dr. Mars Sanders PLT 251 103/ul Normal 150-450 [facility] Comment on above: Performed By: #### C BC #### [facility] [address] [address] [address] Mars Sanders RBC 4.46 106/ul Critically low 4.70-6.10 [facility] Comment on above: Performed By: #### C BC #### [facility] [address] [place] [address] Dr. Mars Sanders WBC 8.4 103/ul Normal 4.0-11.0 [facility] Comment on above: Performed By: #### C BC #### [facility] [address] [place] [address] Dr. Mars Sanders D-DIMERon 08-10-2022 D-DIMER 0.35 mg/L FEU Normal <=0.59 [facility] Comment on above: Performed By: #### D DIM #### [facility] [address] [place] [address] Dr. Mars Sanders D-DIMER COMMENTS SEE BELOW Normal [facility] Comment on above: Result Comment: Incr eases in D-Dimer concentration observed with thromboembolic events can be variable due to localization, size, and age of the thrombus. Therefore, a thromboembolic event cannot be diagnosed with certainty on the basis of the reference range. D-Dimers may also be elevated for a variety of disorders including: advanced age, , coronary disease, cancer, liver disease, infection, inflammation, hematoma, DIC, trauma, post-surgery, diabetes, thrombolytic or anticoagulant therapy, stress, and generalized hospitalization. Performed By: #### D DIM #### [facility] [address] [place] [address] Dr. Mars Sanders PROF 14(COMP METB)on 022 Albumin [Mass/Vol] 3.8 g/dL Normal 3.4-5.0 [facility] Comment on above: Performed By: #### H STROPN, CMP #### [facility] [address] [address] [address] Mars Sanders Albumin/Globulin [Mass ratio] 1.0 {ratio} Normal [facility] Comment on above: Performed By: #### H STROPN, CMP #### [facility] [address] [address] [address] Mars Sanders ALP [Catalytic activity/Vol] 127 U/L Critically high 46-116 [facility] Comment on above: Performed By: #### H STROPN, CMP #### [facility] [address] [place] [address] Dr. Mars Sanders ALT [Catalytic activity/Vol] 30 U/L Normal 16-63 [facility] Comment on above: Performed By: #### H STROPN, CMP #### [facility] [address] [place] [address] Dr. Mars Sanders Anion gap [Moles/Vol] 13.5 mmol/L Normal [facility] Comment on above: Performed By: #### H STROPN, CMP #### [facility] [address] [place] [address] Dr. Mars Sanders AST [Catalytic activity/Vol] 20 U/L Normal 15-37 [facility] Comment on above: Performed By: #### H STROPN, CMP #### [facility] [address] [address] [address] Mars Sanders Bilirubin [Mass/Vol] 0.3 mg/dL Normal 0.2-1.0 [facility] Comment on above: Performed By: #### H STROPN, CMP #### [facility] [address] [address] [address] Mars Sanders Calcium [Mass/Vol] 8.7 mg/dL Normal 8.5-10.1 [facility] Comment on above: Performed By: #### H STROPN, CMP #### [facility] [address] [address] [address] Mars Sanders Chloride [Moles/Vol] 105 mmol/L Normal 98-107 [facility] Comment on above: Performed By: #### H STROPN, CMP #### [facility] [address] [address] [address] Mars Sanders CO2 [Moles/Vol] 25.4 mmol/L Normal 21.0-32.0 [facility] Comment on above: Performed By: #### H STROPN, CMP #### [facility] [address] [address] [address] Mars Sanders Creatinine [Mass/Vol] 0.98 mg/dL Normal 0.70-1.30 [facility] Comment on above: Performed By: #### H STROPN, CMP #### [facility] [address] [place] [address] Dr. Mars Sanders EGFR-AF ARGENTINE >60 Normal >=60 [facility] Comment on above: Performed By: #### H STROPN, CMP #### [facility] [address] [place] [address] Dr. Mars Sanders EGFR-NON AF ARGENTINE >60 Normal >=60 [facility] Comment on above: Performed By: #### H STROPN, CMP #### [facility] [address] [place] [address] Dr. Mars Sanders Globulin (S) [Mass/Vol] 3.9 g/dL Normal [facility] Comment on above: Performed By: #### H STROPN, CMP #### [facility] [address] [address] [address] Mars Sanders Glucose [Mass/Vol] 102 mg/dL Normal 74-106 [facility] Comment on above: Performed By: #### H STROPN, CMP #### [facility] [address] [address] [address] Mars Sanders Potassium [Moles/Vol] 3.9 mmol/L Normal 3.5-5.1 [facility] Comment on above: Performed By: #### H STROPN, CMP #### [facility] [address] [address] [address] Mars Sanders Protein [Mass/Vol] 7.7 g/dL Normal 6.4-8.2 [facility] Comment on above: Performed By: #### H ALESSIO, CMP #### [facility] [address] [place] [address] Dr. Mars Sanders Sodium [Moles/Vol] 140 mmol/L Normal 136-145 [facility] Comment on above: Performed By: #### H ALESSIO, CMP #### [facility] [address] [place] [address] Dr. Mars Sanders Urea nitrogen [Mass/Vol] 14.0 mg/dL Normal 7.0-18.0 [facility] Comment on above: Performed By: #### H ALESSIO, CMP #### [facility] [address] [place] [address] Dr. Mars Sanders Urea nitrogen/Creatinine [Mass ratio] 14.3 mg/mg Normal [facility] Comment on above: Performed By: #### H ALESSIO, CMP #### [facility] [address] [place] [address] Dr. Mars Sanders PROTIMEon 08-10-2022 INR Coag (PPP) [Relative time] 0.95 {INR} Normal [facility] Comment on above: Performed By: #### P T, PTT #### [facility] [address] [place] [address] Dr. Mars Sanders INR GUIDELINES SEE BELOW Normal [facility] Comment on above: Result Comment: EDU RED INR: 2.0 - 3.0 CONDITIONS NOT LISTED BELOW 2.5 - 3.5 FOR PROSTHETIC HEART VALVE REPLACEMENT 2.5 - 3.5 RECURRENT THROMBOSIS Performed By: #### P T, PTT #### [facility] [address] [place] [address] Dr. Mars Sanders PT Coag (PPP) [Time] 10.3 s Normal 9.0-11.6 [facility] Comment on above: Performed By: #### P T, PTT #### [facility] [address] [place] [address] Dr. Mars Sanders PTTon 08-10-2022 aPTT Coag (Bld) [Time] 29.9 s Normal 22.3-36.2 [facility] Comment on above: Performed By: #### P T, PTT #### [facility] [address] [address] [address] Mars Sanders TROPONIN, HIGH SENSITIVITYon 08-10-2022 HSTROP 12.3 pg/mL Normal 4.0-76.1 [facility] Comment on above: Result Comment: CUT- OFF POINTS HAVE BEEN ESTABLISHED BASED ON THE FOURTH UNIVERSAL DEFINITIONS OF MYOCARDIAL INFARCTION. THE UPPER REFERENCE LIMIT (URL) OF TROPONIN, DEFINED THE 99TH PERCENTILE OF cTnI DISTRIBUTION IN A REFERENCE POPULATION, HAS BEEN CONFIRMED THE DECISION THRESHOLD FOR AR DIAGNOSIS. Performed By: #### H STROPN, CMP #### [facility] [address] [address] [address] Mars Sanders XR CHEST 1 Von 08-10-2022 XR CHEST 1 V EXAMINATION: XR CHEST 1 V, 08/10/2022 6:28 PM EDT HISTORY: CHEST PAIN, UNSPECIFIED. COMPARISON: Chest 06/22/2021. TECHNIQUE: Chest x-ray: One view. FINDINGS: SUPPORT APPARATUS/POST-SURGI ALEX CHANGES: None. CARDIOMEDIASTINAL SILHOUETTE: Normal. AIRWAYS/LUNGS: Normal. PLEURAL SPACES: No pleural effusion or pneumothorax. BONES AND SOFT TISSUES: Stable mild to moderate right diaphragmatic elevation. No acute osseous abnormality. IMPRESSION: No acute cardiopulmonary process. Electronically authenticated by: JONN HARGROVE Date: 2022-08-10 18:59 Normal [facility] MR head/brain wo conon 07-08 MR head/brain wo con [facility] [place] [address] MRI Report Signed Patient: Rosa Eastman MR#: [id number] 864 : 1965 Acct:[id number] Age/Sex: 57 / M ADM Date: 07/08/22 Loc: [facility] Room: Type: [facility] Attending Dr: Candida Alexander PA-C Copies to: Candida Alexander PAC Ordering Provider: Candida Alexander PAC Date of Service: 07/08/22 MR/MR head/brain wo con: R41.3 MR head/brain wo con 07/08/2022 8:59 AM SIGN AND SYMPTOMS: Memory loss, dementia PROTOCOL: Multiplanar multisequence MR images of the brain were obtained without IV contrast COMPARISON: 08/27/2021 FINDINGS: Extra axial spaces: Age appropriate. Hemorrhage: None. Ventricular system: Within normal limits. Basal cisterns: Within normal limits and not effaced. Cerebral parenchyma: Normal in signal. Midline shift: None.. Cerebellum: Within normal limits. Brainstem: Within normal limits. OTHER: Calvarium: Normal marrow signal. Vascular system: Satisfactory flow voids within the anterior and posterior circulation. Visualized Paranasal sinuses: Thickening is noted in the maxillary sinuses and ethmoid air cells. Visualized Orbits: Within normal limits. Visualized upper cervical spine: Within normal limits. Sella and skull base: Within normal limits. MR/MR head/brain wo con IMPRESSION: No acute intracranial pathology. No significant chronic microvascular ischemic change or atrophic changes are appreciated. Impression dictated by: Rob Funez M.D.07/08/2022 1:37 PM Dictation Location: [place] [address] Transcribed By: [facility] 07/08/22 1338 Dictated By: Rob Funez II, MD 07/08/22 1334 Signed By: 07/08/22 1337 Normal [facility] Folate [Mass/volume] in Seru m or PlasmaOrdered By: Candida Alexander on 06-21-2022 Folate [Mass/Vol] 7.4 ng/mL >5.9 [facility] Comment on above: Folate reference ran ge: >5.9 ng/ml The WHO technical consultation on folate and vitamin b12 deficiencies has determined that folate concentrations less than 4 ng/ml are considered deficient. Free T4 (Free Thyroxine)on 0 06-21-2022 Free T4 [Mass/Vol] 0.77 ng/dL Normal 0.61-1.12 [facility] Comment on above: Performed By: #### V [id number], T4F, TSH3 #### [facility] [address] [place] [address] #### METH #### [facility] , Laboratory - Chemistry and C hemistry - challengeOrdered By: Candida Alexander on 06-21-2022 Cobalamin (Vitamin B12) [Mass/Vol] 369 pg/mL 180-914 [facility] Methylmalonic Acidon 022 Methylmalonic Acid 241 Normal 0-378 [facility] Comment on above: Result Comment: This test was developed and its performance characteristics determined by [facility]. It has not been cleared or approved by the Food and Drug Administration. Performed at: [facility] [id number] Wheat Farmer: Millicent Calderon MD, Phone: [phone] PERFORMED BY: [place] [address] PATHOLOGIST INSTRUMENT WORKER GENEVIEVE CANNON M.D. Performed By: #### V [id number], T4F, TSH3 #### [address] #### METH #### [facility] , Serum or plasma methylmalona te measurement (moles/volume)Ordered By: Candida Alexander on 06-21-2022 Methylmalonate [Moles/Vol] 241 nmol/L 0-378 [facility] Comment on above: This test was develo ped and its performance characteristics determined by [facility]. It has not been cleared or approved by the Food and Drug Administration. Performed at: [facility] [id number] Wheat Farmer: Millicent Calderon MD, Phone: [phone] TSH DL <= 0.005 mIU/L QnOrde red By: Candida Alexander on 06-21-2022 TSH Qn 2.46 m[IU]/L 0.45-5.33 [facility] Thyroid Stimulating Hormoneo n 06-21-2022 TSH Qn 2.46 m[IU]/L Normal 0.45-5.33 [facility] Comment on above: Result Comment: PERF ORMED BY: [place] [address] PATHOLOGIST INSTRUMENT WORKER GENEVIEVE CANNON M.D. Performed By: #### V [id number], T4F, TSH3 #### [facility] [address] [place] [address] [place] #### METH #### [facility] , Thyroxine (T4) free [Mass/vo lume] in Serum or PlasmaOrdered By: Candida Alexander on 06-21-2022 Free T4 [Mass/Vol] 0.77 ng/dL 0.61-1.12 [facility] Vit. B12/Folate Profileon Cobalamin (Vitamin B12) [Mass/Vol] 369 pg/mL Normal 180-914 [facility] Comment on above: Performed By: #### V [id number], T4F, TSH3 #### [facility] [address] [place] [address] #### METH #### [facility] , Folate 7.4 ng/mL Normal >5.9 [facility] Comment on above: Result Comment: Rosa M te reference range: >5.9 ng/ml The WHO technical consultation on folate and vitamin b12 deficiencies has determined that folate concentrations less than 4 ng/ml are considered deficient. Performed By: #### V [id number], T4F, TSH3 #### [facility] [address] [place] [address] #### METH #### [facility] , Coding Summaryon 02-13-2022 Coding Summary HTMLBase 64 CwybxcvpVPq6fSr+PGhl YWQ+EX2EORSeW84akQAx bK8UN1aNST7MEDHOSGJL SA8CZP5gjLK4CIkiS7Il biAv OwijpEFhPM49GZk0WTD1 eAwoBXvzoU4wsXFpV2g2 GfJxIN02iI95TSvtFCBq QyN7VrRskpfzkTGa R9vbRwKhmYDrTiv+PHRh YmxlIHdpZHRoPScxMDAl LiLxnBwqSJ5zYn9pFTWg LWNvbGxhcHNlOiBj u9vaLIAlCRobGH8khKfb N5JtlQW1KATei5m5Cz98 dHI+RRZkPBV6mQzoPAib y168GdDtr6fwEJE9 rDKwFLnzLOR9W80ki9R6 ODEhUNIdDMP2zLD6sV7z pEvgkhleV6MltBUfPzT2 GLQ8dQVawA0crDwn zryuxD8gNmi+G34GLH9Q YZNSPA9UCdf2B7ReHyrl dHI+RC45WIUcMA30gJVf eXSph5csnXj4VbJd PIIlDBD4yHkbDVfkv4Wy NCTyD53hlYWkf8X8SNZl fSepmTRbGsQkzIH5gH3b YQschohmz1pargtq Bfmbj0ybax37qS07V09v BIflPZLqMXS0FTOeBYFu fFyopk4tbV5kHl3+IDxj w7hwq6pswCi1TyBd OZWawfUosVllVBT7j0Pc Yz03J9OnkQjde0HwKaa6 lm40oOYwc7P7zXN1UHbe BTFjxS5fTLaaItZ6 GAArPvGjhQ33pDCfBYbi Za6udHxmeUrbDK6qJXSn zegzNOSznO1aRTImtUWo jZzrSW8xALRzygir c045OrRrCFQ7TIWcdPZc A7PnyY5kLmPeQUEzRQOm K3BnpIIdILxcR381URba LtS1FUZtsdDjM3Fb KIWmtNzzAiF9b5I4Dc1A n1OkujerTWS2MCfuXWA9 SkF8TdTlEoD9V4DmWbo5 BSSegHagMI2oT3Dq DGGslvqjnidnvSK2SDZu AISguO92eFVsPQkdVk7d d6H7i725BPZiTWOzwA69 Cg3aeGjfZWQqpZKI cM2nzyuos0nujzctVqZn RUHzVAg2UXi6HEEgsCdn IdAvOAB1EmG7DUT8tEDs nW7eoKnbimsryA0q Oyc+E65xnC4aYAF2IAT3 zkycBTBbokTuDS83AF04 T5XkXohasSLrdEC+PGRp vcKloNqbWS4qBfJi f6bjf9IpBOjrH5WoWLRg ZKecWsk3DMBsCZP8wDQ9 rF2tCZEgAEcvh2G6tIS1 N4JfccLrno2lw3tm TXYlBTdwA83asDVke0A2 YZYjvXK6EXCkcBlzKjBb uK01Bzj+UOOecMkjl5Kk Ylirl1rqu1fmdWf9 IjMwJSIgdmFsaWduPSJ0 p4PsUy52G10yWUcwVUVf UQYfNWTpIUSlyZbmzt9c wV4nJa6+PGNvbCB3 tRN6wA8pMDFlAxU2XNrm N530IwXhmNYjLkpdg2nm r7npiMo1IkFwTIZeplTn yVeqQXC0a7TwBa96 O26yIUhzQPTkHIPuEEGs HQWudOtpqf0cbN3xXo0+ IW3zf0yoyw21sR82lBF+ BTTrXTS1eAxiPHbu SZTkaD4wOMrsGyH5PLSa KfHdnG70oUIuOThnIk8n jGnzgHktUT6qIQEuaszg u559ZxNnf5slWGRl mDOrHFczXCS5M43tf8B4 HPDaZOZpVCY5mLB0aD9j bGlnbjogbGVmdDsgdmVy mNsuRSucRJghP145 IHRvcDsnPlBhdGllbnQg HxWlHAa9T8CkWdd6SHQg fTksGV0huFXiFZauMu6s wRpvdSgtYY7uWKVs amgxf721BqQlp6ywVIWj oBOmUCksEVX3C93af6J4 XRRhXKZmRMQ1yTZ3dZ5d bGlnbjogbGVmdDsg msTgqOwlCFpfRAwuZ488 IHRvcDsnPkJpcnRoIERh iPC7MF86WZ69eYMaa9W0 cAM9B7WtIRVjefmk dvoofTJ0XBUiBLJtcE62 Hd4zuZdnAc8tUKHzRVC1 HTYtdQUlV7JckN8jBoUu OPUeQIUmH5SsfRSj BBkfU182EPglGlU5XWWm qfOeY8CdJUJrpXjaOhE4 e5Z4Vq1MX6P1ES85RZ02 pHSub8B3dWN6Y4Nf ODCsuynbjhzrlLH0MQQw PGQdlM34Or1dmLrxKa6v BRQfGFP0DDBteTUaU0Fs qH2uWxSlPMQeKYIt D1IjxUVtRKuxL852MUkw SzQ6THJhkzRtG8VnLGMk jPrdRsB9u0D8Me8EPGv4 EP06VK83rEPwc9K0 pRD6J7EcFPYuabaxfhgs dNS6NRBwNYUdzH96Ma0z wAgzMy1tJHXqSWC7NKAe xFNtR5RfsH1zSjWb OGNaDABfH5TueOYzQKvp D453EBwiFcU3XHGovtOy Y6XeFNLokRmcLzW8r5W8 Ki8MPQCcTV77CYT0 uCH1JN49HE30F4LgZjgr dGFibGU+PHRhYmxlIHdp ZHRoPScxMDAlJyBzdHls JJ2sUb8zMWWcHDYr pDxazIPhSgTuh0enDGYe ACmrQM8apEihO9TiiBP6 NZXgn5p2Jo65D18oW1Hd dXA+LKKirYJ9rFV3 cB9oEnYjEgU0PMbeG707 MxJwlXXoNjdno9air1oa uGl0XeZ0BGKgddTmoCtl YMZ9u4NzBl32R84j IHdpZHRoPSIxNSUiIHZh gBwysr5vnO5bBi2+PGNv xWF1dKV8uW1wYhLyZjB6 OYstD140WmLglJNb Rbbbr8lgf7gmdHv8EvZg DOXjrpFhuIkyGVJ2w7Mu Yh43D5EjcQgfs3UnOfj4 uy03ySFji2I7cEA6 O9GaOHEvhqixgFVkvCxc KU7jJJHbddmtRQXfsS2d KURgM2k3MdMxEeB8JDvl O5GvhbL0NXZteOXg JVvyQOK6Q91fy3V3JQKa UKHpQAX3lQM5bV3mfHqx bjogbGVmdDsgdmVydGlj PRvbUVkjH574BXFv bEkxBKSmuD9wZJDyjINj mJenWR7dALMolghwRkFG M3DME78ZZNPLW0KPIzGp GBoIUJ44L8KtWis5 TCWmsFgtEA0akQMgVNra Vj5qxVocgXptWO9nUYQv yinhJWCirD0oDULmfOBl xJkiWD5nNCAxuzjk v379HzEvIVQ6EPZnsTUv W7InrZ7zLeVpJTLoGEOl Y0KiyLSgKJdvU460YAxj UkD7VNZuzuCeI7Gh AHQrtNwkRrL2n7W7Tx2z VC2fIm8cGVF2CS17NI99 dEWwe4J6xPC0B5MeJZGg kkivtclfsNG6CARh WXAkeP26mIIdZDpzHj6r f9F9k440ZZZwZMIfrM81 Xo8dxVsdWWPuxIWBkX1x dmwhq5zgwukyEjKx YQUsZUv9TNv2NYIzaCla BwVoXWH5HmC5RLA8vJRr yW5glVjnykfnjK8sDgu+ INUfNIHibeI7N2Dj Gak6NHFgkZahJP6xgGOj UQnpVn9jvFxglJrpNR4d VUVzxeohQREiyH7tBWTr mBNdoYllUA4cGRVo xvwwh186OcTsGIO6USIh nOVsH6WcyO4nGgCjMIWm QJWzR7JahBBnOJioK518 YWwqCqQ5GDFgvhPz J8YzTIXvjXnpCoG6s8D1 Uh6EALkOJM09OV96kXWz k7S3lTP7N9AuVPDokinh dehrjFZ8LZTjIWNx tE53sOFdGJhbBo5xd3N2 x017KGDvMBItqX00Oy3h jCyxCPHywTHTsB9orvon z5pfphmeBeBuJQTp JAk1UHq5VAMglEksVdLv JSK1WkZ7RXC6bOQamI4w zYtohcsciZ9rEuz+T1A8 V3KeCoqthTA+PC90 PBFoVS71mIPqoNLtc5bo qFt6PnOuJWTsKBO4nTfs MRrtg9GmIQDlO85gsJFo w1C3CVDmqUfgfEWm YjZweNC4iH0cQMlqbmaz j1xesrjwLtbbj8omru11 qL13Q43aXLgkSCVrSHXq PTQvQFEzpCfnky6x tT7vOv0+WYZodZM3nUD8 bD6jGpXqReI9HKtoS669 XsMtwMVqFgmoz7uqi7ow uCx6CrNkHGNluyTs xSrfMAU9m5ZiWu87E26i IHdpZHRoPSIyMCUiIHZh pFkulb5rsA0nCd6+PC9j a0unyi32oI03pWM+ PHFfJED1uFsaNZrmXPYv pV4tUVtyEtF2STBeAlHv aY77eVZaECjeQj7szUjt kWfrME8vDEDkrkec a384WuVeq2ztHQRckPDv KDocMSS5U94ds2I9UAXc AQAfIGF4iKU8xE1dhJqt bjogbGVmdDsgdmVy iQhiVTeqUChnI486AMIy wIkhJjRghRKuG8jgmrXE VQ9lKjkdjNP+PHRkIHN0 mZmjFGzzQAXveU2v OYEuL8g0ZoPnVlF5WPrr C3KpraJ0FDPvmYYjEWPi aNMWsW2cemckr0ftlgkv IgEvOJKaOPm4FLx9 CCNdxCeeHbMkAWS8ClB1 PTY0xOCrtE8lbKxfdbud gE9kEkj+RklOOjwvdGQ+ OXWbRIO0hPhuXJfe VQDhwX9tOETeD0c6TzVd JsG6OTkaI4UzvjU4WXXl uBFoRPKexLDEuG2rmsmr h0ogrficKjIuJMUo WQv7XBg2TDNcjJslBkLv UUW2KiT4PWB6nGTkcY0t vIhdewellT5wHud+TVJO OjwvdGQ+PHRkIHN0 dFicJVvqMVEjlI9yUEBy S8p9YiGfWxF5OVypJ3Xo qdB6TQWxvMMaZXYwmYCU kR3qvuzrz6vrucpe GsFgDFUgLRc6BDx8JNKi gHwgVoGmZAR4JtP9AYH6 lILapJ0lsQwwibvnkB4s Oyc+EPB4GXP8NA83 UI78R1MwUgdcaWCtqTZ+ PHRhYmxlIHdpZHRoPScx DHXjQlAejAdcCB5bPo4d ZGVyLWNvbGxhcHNl OiB (more content not included)... [facility] Coding Summary HTMLBase 64 SsmmzdlcLVm6nZi+PGhl YWQ+PE1DURXwM02fyDVo jV5LR6vJBA1CBSDUWQBO VN8LKF0dhHS8JCqxJ1Rn biAv VdjlmGRyPK23ISl0CZM0 mDgxJJyxgI9ypUIyH6m1 GfJzZG37iS29GJsyOKSs EfZ1SjWztuclqGNy D8sqXiKurHCqGjw+PHRh YmxlIHdpZHRoPScxMDAl ZgDhsDfiTH2pHr5vWLRg LWNvbGxhcHNlOiBj z1piPXKsRSnrLB5rlXep L8ItcFG1CKLmi8c0Hz73 dHI+JPCqVEL0jUmjRBbs t653DuKfh1krPKV0 cBYrZRzsYLF1I53xt6K0 VCOdNCUoYKD5aNC0yI6s yLdaroemN7GnqLEfMcR2 BPD0nHVixR4euRey zxxgbY0vTuz+O26AOG7E VPUKEQ5OTjc4Z3VkZjxn dHI+BB62IWUeJM16xMJl wDHvc6kgrKy4SlFe QKAzAAS1sMjfJKfjt7Yc DYHmW15hmPGyd5Q5AFVi rOzgfMZeSfCioNQ9dJ4d NFkwxsljh3ngvoqe Eizuy8seob46xN90R01t DIfpSFTvGOU0JUEaMQKc fHcmnf3bzP7pJc5+IDxj o4cvd7hidKc0VcOc EBUlyzWdmKcfKIC6x2Vw Fo18N3LcuGipq4LhDvc2 yu25uNRky6I8xVF1KMhf SSJerF1gGIuoQlC8 JBPpLtTmkH76zVDeCKlz Vy8uxFwzmMedOG7gSHQi rasbDWSkxX7kQWStpSEq ePznNI7wTRTqqxqu g497XkXiOMF0TONmgOTg T0MykA3iMlZxQJTaHLNh D5ZehUTkRZadB821QTix ViB5TXHhvxSgE4Vk CCHwsFepLmV8r6Q8Wk5Q i3NmiroxGPO0XVdfVQN5 ZtP5PtOfErB6P9QmUye3 QOQuuUtxAJ3qC8Ku FTFxnihcebnfxFQ0WAJz ANFgoQ67bHNlGOigOm8m a6G9b483KNQbVYOzfS53 Wl8xyQsvEMNtcGDR bV7csqhyy2hpbbkbIpLi ACUtMBu4UMk3KGUeuJyj PbXxDHZ7YiJ4JKR4bVYo uG5msPqluryhvT5t Oyc+P70uqD4uNZO8VNG2 goubDBGnfsTzLK07OE96 W8FsHdmbsLIgrJZ+PGRp daQvxQinLQ1oRoOw s3shx4UeLOamN1VyQCVl OKwsAml2KFEwQVA8aCU2 sR2hZUViTWvbx9L5gRF7 O6WyjrLwak3jp6cy YMWqSYdbN53tqHRgw5G5 PDJpyVG7PKUfhUrnNsHg bW96Tny+EVJtgRzph6Mt Hixxk8cej6prmTw4 IjMwJSIgdmFsaWduPSJ0 q7PvAr80R65qPJkiNDPy ZCOgYIKzICXbhThglr6m kH7cUj0+PGNvbCB3 pZA7mY3bHLJwDjR4YBvh V328UxMldUAhLjbbz3cr o1ogvGx3TsViPKEjtdMp tYabPVI5r2YwAw98 O54zRLztUTVhRPFkZUZc SMRmbLnzjy6tcK4rKn8+ KN0ut1sbsd96pK66hLC+ NEJqAPD9tXkoIAxf QVHdlF9aHSdfCjA1IFQb QfMefJ13nCNxIThgZs2m mBcubMikQM2eXCBwirpz y461QxTgu9teKCWg bRXpVUyqEYH2D76yo6D4 JLXzBTJeIFS0eLP8nH6d bGlnbjogbGVmdDsgdmVy aWaqGIkePWujN687 IHRvcDsnPlBhdGllbnQg RmHpKPo9D5ApPyk7SEAu iOovGJ2mhUXoSUxyNv3l yVwstLmqHT9rHXOm dgkvn803QmQoq8krXHDz qVGnAMjoNYM0B91ws5F5 LVScTMXeKMJ9eOY5tS9d bGlnbjogbGVmdDsg qhHthLhiPXiiIAkkK143 IHRvcDsnPkJpcnRoIERh fWH5WB09VO88jOMrv4E3 cDC5Y7WmUQEdmtam vbjhoSZ5UOQzJDSzfN80 Uo0fzMktLb3zGBZlKJN8 OZDnvHKiF1NebB7qLbVi AXVxZQAaY8OyyCLy TMcvT182UUuwFsY8JVEn yeSkA0HpEZJqxYwwDmT9 y6M7Nv2BX0U0GO71LJ73 pENwb5D1mNO5E8Qy SYTaevhdfqjykLB7AFDy PZHsoM32Qe4oeYrzDg5e OVRxKZO5KMTtvEUgJ2Ff zU5rSfUrDTYzVXKp F8KarSYkDXnhS161ELdm YyG9XHRllvFaK6PwKWAt pWltRtQ5z8R4Aq9AATi8 PX10EJ00fITjr4F1 dCU1U6KeKETcugobgozp sBM0KZAkRCLhkV03Qe0m gWguZl7qFQLqHIZ0XVXj vUVlG1UbgS4nAmWm OFFcRTUoK1NgnDZtDEtf X914ZGapDsP1PTRewkCo M9JzCICycKnfBrY9c1Q3 Cs2DEAIkYI96VGO8 tCY9GB47RP45N5JgAcmj dGFibGU+PHRhYmxlIHdp ZHRoPScxMDAlJyBzdHls SM9dUa9bRDBiDILd lUyldKUoUwJku4xgTTFo TNjfFK2bmAnrP7PxjOG3 RDIpv6o2Xr63G50fG6Mp dXA+JCGkzWM9vXZ5 mB1jMhGoBzW3QMozJ201 KqRuyRMoBcudj6gvj9zk pEb5OxA4KDCfbaHyiPeh LXE5w5HkAg23O08e IHdpZHRoPSIxNSUiIHZh hNxjus3rlU6pBo6+PGNv pSX8cSQ3lY7wUpJzNhZ7 XGdkK467KcKnoQRh Ftyny2fvo5urhHr8RdLj VOBghvFlmMgeNQD6q8If Ov79R6SyqVasm4IwRti5 ix77qITcp6Q8gGA1 Z4KdOBUfhjiddZKjvQlq FK8wPEPypgvhQONbbP0p PGDeN9n1CvAiAuX1PKkg E4DljlO8ULRwfZAb MPjiMVR7W36ca0Y6CDTl SOFnBKZ2sYN6pC6mgSqd bjogbGVmdDsgdmVydGlj ZNlfHLddW001PVOn uFjmMHNubT6nFEKrfZDp cYwnWJ8pILVswgajLsEQ L0MJA52TWGDLS6WRAuJf LXbQPI23F1YhPwv4 ODMpzBmgTH4ngLTjXNzr Xa8lyAtwtOjkTA9bWXVy yixxNXOerG0tOVQhnQVe hNkhPS0qSOLknaui t922NpOsLOD0MBHxyDTh M6KczX3nVeWmPFZpFIYn A3LpoEBoFBvrD979ESgf IkK1LPAdpvJaU1Vk WUJnoWygMqO0z1C8Xg4r GY4iAr8cIJQ4CI22HJ42 rVKzo2U2iUJ8C5DnSHTg nkvoucjuxAI8ZAHi OXAbjK00zNLtWPoiPl6n z5Y4g398RFUaZNWigS28 Km7jbTdhSXTioNBOjS7f yumxa2hjmqhiWwUy RTBsWJw9TFf3SPWphYyx JxGfEPG4PyW1QFT8wQPz zP3shEojegldsH4uTtn+ PARePHIdzdD0J2Eb Dfj1OHRleGjlLF2ypBJo XJjiEu5wfYvyaFkqDO6a YZOvwiyoSPGltB3iUNQu cJSeqIzdHX8dGMBe rubpp854KgWuDFN8METi jTPvV1ChlW0wQpWxHAJj CJEfM5QjiHHeUPkdY255 JQxnKiU9DTRqkkSm P7LoWQUhdXbiFiR6e8J9 Lp2TKRxNNE92BA72dQQu r0H2nIR3N7SkNWUwvmjy cngbsOB6NWLoQGPj uB47qODpBAygEo5kk9H1 z609YZMxKXYuwV61Br2n cTffQFTzdCDOrT1cpepy i6zkokczStWuBCZm JPz5NOe3OZXxnCylTrVf NZP8GrX7SFI6cRZpwG3r pZjmtkraoH1bKrq+RW1l hrxhjdH4DN09WK49 C4PuDvogoCKmgLK+PHRh YmxlIHdpZHRoPScxMDAl IpHhgAscEG5vHc5xXLNf LWNvbGxhcHNlOiBj y6twVOCbCFgrEQ2srSqs W5CloES6DJUbj4j3Xm29 D77hZ8TlkPE+PGNvbCB3 wON2fC6qCqAyOlP6 PHcuS805AxRykCXoBlai z8oan0ydjTl6JcThYXWi ydFpsBdeDHD3y7YmBn00 E36mWHanPDOwVAHi GFSqZUTinEyrwl3vpF5y Ii8+DWUfmBU2dJH7gO1g VcHnKnI2XRteW269BrIq aHTyIauoB74aZ6Ec dXA+VWDkJjk6KNXjaIai QN1nyKNlSZsdAs7xPLF8 KtHoQiDdBZnfR2ZbDMWu ulkfyzrikTH7ZGEe ORYglG66Fy8yhAljKm4x XHFiGNM4YSMjgUMsI5Qf pF1sTwVzDPRqOBWlR6Za rFBnHXobU515WPik FsI2VWGyciZrX6EkPIBb vExyCtL8b6W8My0EmWei mXTbBW3qPjSiBLa2E0Dm Lao6QVZtfXdcHJ3i fNYmHXaoWv4mtBuifIas ZV0jDSCjvlneg143BcUq h1ngBPPfvJZeXBxbISY5 R66bq8A9BPZfCDJs SFB7mYK7yD9iqXxkzygh bGVmdDsgdmVydGljYWwt CGsaO183BJBgpHkaTjSF Hlz8V3OkNwn2ACUu aQttEQ8xlGBiUGoiTd6b pUghtIilSA6zQNLiyyqc i271WyUfe0stDXFxhGXb EKylNVZ8V58qr8I3 OITuYINeYTU9xRZ6vY6g bGlnbjogbGVmdDsgdmVy xMuzBGhxCTuuT193WJMu cUdkOg0NZjf7W5Je Sos7PCDqfYmgMI2qoGSm LOfrUy0xlDfwyYgaEC2l YCAdururl779JpWug0br IDEwcHQgVGltZXM7 E12wg5V9VPQkEZQhCWT0 aXA7gR3fhFcsbhgfbNCd dDsgdmVydGljYWwtYWxp Y521JMBbkJhrPdKh eWVyOjwvdGQ+XN89dv37 X9DjSbdwSod6BRDeMZP4 xLW6qV9qXQMiPOyym6M9 iUB3E6OdgqFusj3l b2x (more content not included)... [facility] ED Clinical Summaryon 2021 ED Clinical Summary [facility] - Emergency Department [address] [place] [id number] ED Clinical Summary PERSON INFORMATION Name: ROSA EASTMAN Age: 56 Years Sex: MALE : 1965 MRN: Acct#: Visit Reason: Hand pain-swelling; RT HAND SWELLING/NUMBNESS AND TINGLING Arrival: 02/05/2022 14:13:58 Discharge: 02/05/2022 15:08:00 LOS: 000 00:55 Check In: 02/05/2022 14:13:58 Checkout:02/05/2022 15:08:00 Address: [address] [facility] [address] PCP: Britt Penaloza DO PROVIDER INFORMATION Provider Role Assigned Unassigned Hilario Reyes ED PA 02/05/2022 14:19:18 Dmitry RN, Christine Santiago ED Nurse 02/05/2022 14:21:16 VITALS INFORMATION Vital Sign Triage Latest Temperature Tympanic Temperature Temporal Artery Pulse Rate 85 bpm 82 bpm O2 Sat 99 % 99 % Respiratory Rate 18 br/min 18 br/min Blood Pressure /91 mmHg /91 mmHg MEDICAL INFORMATION Medications Given: Allergy Information: penicillins; Bee Stings PHYSICIAN DOCUMENTATION DISCHARGE INFORMATION: Discharge Disposition: Home Discharge Location: PATIENT EDUCATION INFORMATION Instructions: Paresthesia; Cubital Tunnel Syndrome Follow-Up: With: Address: When: Andrew Mckenzie DO [address] [place] [address] Within 3 to 5 days Comments: Diagnosis is ulnar cubital tunnel syndrome, slight component of carpal tunnel syndrome, from history, you have had surgeries on both the right elbow and right wrist for the above diagnoses. Reported you have been having some tingling in the right fourth and fifth fingers for at least 3 years. You had previous neck surgery, but continued to have tingling in the right fourth and fifth fingers, this could be from the area of the elbow, and or the area of the wrist we have had previous surgery. You are scheduled to have an EMG test, which will help delineate this. We are starting you on steroids, while on steroids, avoid taking ibuprofen and use only Tylenol. They can cause gastric discomfort. If taking Tylenol, do not take more than 4000 mg in a 24-hour. Follow-up with listed orthopedic surgeon next 3 to 5 days for reevaluation. Prescription is electronically sent to [facility]. Return to the emergency department for worsening symptoms or concerns, acute shortness of breath, chest pain, abdominal pain, nausea or vomiting, or any questions. DIAGNOSIS: 1:Cubital tunnel syndrome on right; 2:Paresthesia of hand Patient Understands: Yes - Patient/family/careg iver verbalizes understanding of instructions given Comment: Normal [facility] ED Note-Nursingon 02-05-2022 ED Note-Nursing Pt presents to the ED with right hand numbness and tingling that started Friday. Pt also states swelling, none seen at this time. Pt states a hx of surgery to his right Arm for a pinched nerve 3 years ago. Normal [facility] ED Patient Summaryon 022 ED Patient Summary [facility] - Emergency Department [address] [place], [place] [id number] PATIENT DISCHARGE INSTRUCTIONS Patient Information Name: ROSA EASTMAN Age: 56 Years Date of : 1965 Reason For Visit: Hand pain-swelling; RT HAND SWELLING/NUMBNESS AND TINGLING Arrival Time: 02/05/2022 14:13:58 Primary Care Physician: Britt Penaloza DO Attending Physician: Lennie Wilcox MD Comment: Visit Diagnosis: Diagnoses This Visit Cubital tunnel syndrome on right (G56.21) Hand pain-swelling ([id number]) Paresthesia of hand (R20.2) Prescription Information: If you have been given a prescription for narcotics, seek immediate medical attention if you have any difficulty breathing or any sudden status changes such as confusion and sleepiness. If you or anyone you know is experiencing suicidal thoughts, mental health, alcohol and/or drug addiction problems; contact the [facility] 02/06 Crisis Hotline -Text 4HOPE to 695654. If you received any narcotics, sedation, or any other medication that causes drowsiness for the next 24 hours, unless otherwise directed: ? Do not drive a car. ? Do not operate machinery such as power tools, lawn mowers, drills, sewing machines, or stoves ? Avoid alcoholic beverages and drugs for allergies, nerves, or sleep ? Do not make important personal or business decisions or sign any legal documents With: Address: When: Andrew Mckenzie DO [address] [place] [address] Within 3 to 5 days Comments: Diagnosis is ulnar cubital tunnel syndrome, slight component of carpal tunnel syndrome, from history, you have had surgeries on both the right elbow and right wrist for the above diagnoses. Reported you have been having some tingling in the right fourth and fifth fingers for at least 3 years. You had previous neck surgery, but continued to have tingling in the right fourth and fifth fingers, this could be from the area of the elbow, and or the area of the wrist we have had previous surgery. You are scheduled to have an EMG test, which will help delineate this. We are starting you on steroids, while on steroids, avoid taking ibuprofen and use only Tylenol. They can cause gastric discomfort. If taking Tylenol, do not take more than 4000 mg in a 24-hour. Follow-up with listed orthopedic surgeon next 3 to 5 days for reevaluation. Prescription is electronically sent to [facility]. Return to the emergency department for worsening symptoms or concerns, acute shortness of breath, chest pain, abdominal pain, nausea or vomiting, or any questions. Medication Information: The exam and treatment you received today in the [facility] Emergency Department were for an urgent problem and are not intended as complete care. It is important for you to follow up with a doctor, nurse practitioner, or physician?s assistant hall director for ongoing care. If your symptoms become worse or you do not improve as expected and you are unable to reach your usual health care provider, you should return to the Emergency Department, we are available 24 hours a day. For those patients who have received Radiology results, the interpretation of your X-ray as given to you by our Emergency Department physician is only a preliminary report. The Radiologist will review your films and if there is a change in the diagnosis you will be notified by phone. Please make sure you have provided a working phone number so we can reach you if necessary. In the event that you had a lab culture while you were a patient in the Emergency Department, you will be notified by phone if there is a need to change your antibiotic. Please make sure you have provided a working phone number so we can reach you if necessary. [facility] Emergency Department has provided you with a complete list of medications post discharge. Please inform your primary health organisation manager/provider of your visit and for further instruction on these medications. Any specific questions regarding your chronic medications and dosages should be discussed with your primary care physician(s) and/or pharmacist. New Medications [facility], [address] [place], [place] [id number], [phone] predniSONE (predniSONE 20 mg oral tablet) 2 tab(s) Oral every day for 5 Days. Refills: 0. Additional medications on your home medication list not specifically addressed. Please contact the ordering physician if you have questions about these medications. acetaminophen-hydroc odone (hydrocodone-acetami nophen 5 mg-325 mg ([place] 5)) 1 tab(s) Oral Every 6 hours as needed as needed for pain. latanoprost ophthalmic (latanoprost 0.005% ophthalmic solution) 1 Drops Ophthalmic once a day (at bedtime). both eyes. Visit Information Allergies: Substance Reaction Symptoms Type Comments Bee Stings Drug penicillins Drug Vi (more content not included)... [facility] Provider Orderson 10-18-2021 Provider Orders [id number] #[id number] [facility] Coding Summaryon 10-15-2021 Coding Summary [facility] SSD[employer] 64 HeavynqeJQs4wUz+PGhl YWQ+UY1LJCVmZ86btBAb tS9MM4tSSA4HNYXQYIFE JB1PSP4wmUU1YWneY4Dx biAv LfhiyFCiGR21MTh0LJA6 rKrtXUvkfQ9lePReM2s8 OnDoUP74fR73JXwnHHFz ZxH6CyRvjrembJGc G1cfJhCtnVMzIjk+PHRh YmxlIHdpZHRoPScxMDAl SlCmcGonUR8jKr8hECBi LWNvbGxhcHNlOiBj e2xzJHHeEOvbCT2rlMac J3EubSD2KCHld8b0Fi86 dHI+FGWfTIQ1hGruBPmt m093ZgAxr7zpDLD5 wMRuUHsfFOF0H84pu8E9 FMRmWFNoUPH7mTT7iT5y mHauqouwV5ZhyVQxLxB0 MYO2kFFzrM1ixZei rdyimU8ePzs+W46IDO1V CHLJFU0RVxv1B7FbKtpa dHI+TK84OEPnFG47aGVf tIUvj2mnjVx1XhJt HLOiPJL0ePnjJDytv4Yu ONQmL11fjDGhs9Y2MPAu gIdpkXQcBaKrvTM1mW7v KResijtbg9gmzsmi Vpiht2qlfw80gC30K12r RCruANWuNXC5GQYxSHNx jVqrcq2ypB2mBj9+IDxj d1heb4gzyZm5MfJo GYJemsLolNtwOEL7g9Dm Ro88G4UsiSfjg2HsXkp1 yx87gGTga9G2xGI6IXyy JHHmcX5pBHpzDeN9 HMAaChMgiA53xJLpGImg Yj3miFztrQisFD2gDSJc ndasWWVulL6kNNAffIQh pNetOO8aOAZohoev z150XuGzKTG7AAMzbVHk K4OiiI0wOkCbLUTeZHDz K9ZwiXHgCQugN354KPif NfR5LTEckpXoG9Nf CCCkaTabCoV5g7P4Lu2V w4FtaelvHZW7NEitDMPs RqU9AyKkRiX6R5KgJou0 SCZjlQstEO7xL9Sk XXPrjsqylawlvKD0KGTp TREccB79oGHzLPxfHs8y j1P7a580ZMXlMETbfC35 Lu2gdHxtMXTyqUCF oG0hutbdy6yimdqgFtTs LFYqAAc2VIi8QNWrnMfj MaAuEVP2MiV7YTX4bROr nP6jwWtvxupqmZ6s Oyc+T90qlJ7cPOL8XDP3 jnxbWHPbvmQmDZ87DT59 G9GxUbzgnNRwlMG+PGRp rkTmlInuFU1dHzEr m7hsh1YmKChlB8RxWHYz PJhfMqm3MIJjJBN6rPQ1 mY9oNUSsJDbek8Y1cSV1 A0NzxgQdyu8eq6hr HDYlCInpC84rrVXgj7R7 VFRrfLL6QQVjtVfnCbIg cA94Xbd+ITPbsRecy9Kv Amocu2orz9irxOm1 IjMwJSIgdmFsaWduPSJ0 n2StCa03G53dLNqqNRSp BOSkHPRfWVNdrVmuih6z xN5uDd4+PGNvbCB3 gWP6rX4eKRPdQjM0QObi F921IaMynROrGluvw0jo z7zxxMi8UfUyYBFsirDf aIrqBZR8e8FoNh26 T89sTQyfJRNlOGWsHCJy UUIltOiyct3ddI7zJy7+ WF5th0zxnf14fD24fTK+ XZQwEJD2bYzbGFvh AIPagK8lLRbiScP6CPLt EwLszA48sGCpFTmwGc4w gMpczYroKS1jBOBzhzce s250VgKyz4vnHUFg jTKcDSvvXTK6S74fx4I0 CKPmWAIqIEP8qET6nX8y bGlnbjogbGVmdDsgdmVy cBxeZXchERkkY370 IHRvcDsnPlBhdGllbnQg JsFdYFl9Q5YoRtw6XHPk cVwcAS5qkPInTOmzRc9i zClaqJcgUO9cATHr hfikx298ToJjr9zqORLk xXOfYYiaTUO4Z92zi2X6 FDNlOZTqCDD4lUX8rQ9m bGlnbjogbGVmdDsg ffBdwOcfIIrxHBcyD268 IHRvcDsnPkJpcnRoIERh wZD2AX28EQ53oSAbl3N5 cGU3V7YrAFWcfrpd zwynmTK4HTLdJEBpgF43 Qp7shJarHd0fJXEqVYO7 DFYamGVkL3YjfH8lQoJv REWtHGOiR9FtbUNp PZcpC665DOadGuZ0QRYx zcIdU8MvLAAwfIqbDoX3 e0D9Uq3AW7O9EQ20HX75 dHByd9Y8kNF5K2Ou QGTkcgielcpvvDU2ELNt PAXpyO46Zg4pnTfbDc7c GEJnNQQ1JEXjvVPvO8Uz qS9hVrSiTGUaHHMa D3KgbYTrBIvrR868JKbz ZbA2ANOjaeHlK4XqPYSj rTtfGlJ6d5V8Ey8WHCv0 ZD51DE95bLZsf7K4 uYW5N1YnGRTmhsrwmrif fBP9LHKvJVOxoY39Py0f jGspXu5oZSCzRKQ6MOGs dXBuF6MbtC0jZfQz GLZjBBIhT9JnqLSvZLig J720HVegEbW6UEEzwhEu L1JvRARahZhhLpZ1v2W0 Hu1CNFVnKD29HXA4 sFM0IF95GY98A3UzBfct dGFibGU+PHRhYmxlIHdp ZHRoPScxMDAlJyBzdHls LM9xWj4wQBEvFCPs tBspmLZtPmOrf5pdIUOx OHzoKJ6ebHsbW8TmaPQ4 IMFup4j5Qy83K90kD0Wg dXA+UNQbwDU7bDB0 tQ8tNtYcGhJ8GNlkC191 PkFimHByGoxhp9lyk1tz xGd9JbJ2JQWgalWpnMbd ASR9e1CaXd86E94d IHdpZHRoPSIxNSUiIHZh mQfdjs8whR7zCb8+PGNv eGS2aQO1zA4pHqOsNbA7 NFztL054InQjzLRh Emnhk4upm7fbgUe8RrVu IVKdqsXltOrlAWW1i4At Pe74D1OiyExgw8PhAdc2 lj97sUZmr3R7gZO3 A7BeGFVjdpumbSKglVno NM6hYSXnezdvCKSklT2f LLYvS5c9LjHdMsZ7UYte M3KlzrM3EVAndQZi CEuxZVF3D91pa1Z1JANw PELcJHJ5eJE2nR7vuUnf bjogbGVmdDsgdmVydGlj UJbdEDndI470HBXh pMqdLOJzlL3mGSKxwUKf wQjlKU2yQKYtqfozSmGL E0CXR81WMOZGA5IOTpPd OVhLGQ20C7IcJum6 QCSbmVxhXR5jmVHjXZuc Kk3bxPymdEloIA5rNTUd dbfeQWWmgH4iTDVfqCMt uYwnIQ9jGLYfaznz j999DoPhFEX3GRIouMDp Y2BqzF5aGsSnSJXcBNEa V0VobWFzPQywE462KDvs CrM9ASVgwbDnP3Sj DDUbhFpvMzA9s2C4Tk0n DK4pId4aCQD2QP74RK68 aYLmn7F0hPC0R6YyJRCk ihtvppkftSI5HWGd SRAhmG42jLSrCHcvWf3s u0J6u042GUSdWEUtoU64 Tc7peXbpWRBjkZCQrU4v iphwu8hiwwjmUcOp IYCjUXy9OIz1ARWwvDxy AuNpHHK8SiA7OGH9lGPo pA1odWxjddrqbM4vXzx+ TQLgDMKtabU8Z1Kc Isw5NMRizTnhDI0eiQXt VGgyBp8wmYhcrKidGX6n VTPbqbagQVEsnD7zHOLn mWMflDllSG8lLHWr vmnbq642DjBrMZP5SUZz fTLoH8AgnU1xGuYuIHVo NEFrA7VtkEUjMPaqA795 GTzsNgO8EAWkgmWj V6XqMHLowAshKjC4q8E8 Ag1HTQtYHN28TA40kUIl r2S1zKR2K2UhGSBkjnut rqjgdLY2DQAoESLc cH00qVEnELtlTq6xw1T4 f669FRLlUSAbrC89Vd5a fUueRJMlcJTYtR9hhehy z1xllwdnQnClKPBp SSq8IKq9CONbwEvmIvFd ACM6NhF0FVS0nJVcyZ8k tExgyjbwdF7hTpf+T1A8 O4ViLgbrlPR+PC90 TFLuGO59kTDmuSGkh7yp tJi3AhIhAITqNVC2vRne FInml4ScKTZrU81koRYk n5A9CKNisCcnuWPg TnIglXX4cP2cOLgttgbf b7hptgonFbysn8tnkb99 dV80F19mVAulMKGpIHFk UBGfDYTslSsqjd7f mF4pWo5+XLKtvFW8gOO1 rV0vRqHzAqK1ARyjG663 MuYdxRHfEluim5uei4cc tPh9GbUkEVPjwsRk dPxuVZC7z6EtCe34L52e IHdpZHRoPSIyMCUiIHZh mCvido1pgY1yGj8+PC9j p4vdxr33pI18aUE+ IZWvYQA5gCetIQzfUJWz pO8nCYmnNeB7AQVxHiEv yT17yNKvNQvgVe0feObz lNreWR9wOSKaaaee j514MlXer1keACDjqPSj VBjuKKA4G70cl8P5NJFp OOKqFIJ2hMA9cM3pkAhw bjogbGVmdDsgdmVy oUhyQJmeOTomO915YFIe dQloIkUmrSQxF1hpcmGB PX6cJtyauSN+PHRkIHN0 oJhzTYgnDOZzpU5e PJWsI4i2XyGuZjM6ENgs I2NwzsF4KCLkmJLaLGEd sPSBeZ8fccqqx6jksaus YsJsFLDaCRd3XIe3 QOBgqPbaUeGtZDE8HcE0 VHO4uMKqcL5cuRaabtrl vP0kQbu+RklOOjwvdGQ+ XLWtHXE2tYftTDaw UKXraV9mANHrK4m5JjIg HbG6XAxmS1WqenE4LSBb rMKsMRPidCLBjY5ihoom i0rsfpuaZwOgTJBl RIu6LXw0TVKejZyxFcBk BIM2VzL4LSP5bTVkgT8o dVsdvbnbxI4mFzc+TVJO OjwvdGQ+PHRkIHN0 aVipIKqdKOSvhH9gYHWi Y7c1ItGdSaE7QKuvP8Fw zsK8QYZflYAiJUQvcOER fI7rhuxfi4eiprru XlLoWFGyUVi5BCj6ZWGp iYdiFfUaEZJ9PqK4ZTL6 fFEaeY1dqXoqkhwsrT2r Oyc+QDC4CLQ0IA43 LQ06V3BwIiqiiTPllQN+ PHRhYmxlIHdpZHRoPScx EWWsRvYacXrcGE4dYk7j ZGVyLWNvbGxhcHNl OiB (more content not included)... [facility] Rad - MRI Reporton Rad - MRI Report [id number] [email or web address] [facility] MRA Neck w/o Contraston MRA Neck w/o Contrast EXAMINATION: MRA Neck w/o Contrast HISTORY: LOSS OF BALANCE; HYPERREFLEXIA; LIGHTHEADEDNESS COMPARISON: None. TECHNIQUE: Carotid stenosis is reported according to NASCET criteria. FINDINGS: Right: Moderate narrowing of carotid bulb/proximal ICA, likely due to atherosclerotic plaque. Left: Mild-moderate narrowing of the carotid bulb/proximal ICA, likely due to atherosclerotic plaque. IMPRESSION: 1. Imaging was performed of the common carotid arteries and proximal ICA/ECA. Mid and distal ICA or above the level of imaging. 2. Narrowing of the carotid bulb/proximal ICA bilaterally; moderate on right, mild-moderate on left. Findings correlate with ultrasound carotid study performed on 06/22/2021. Final Dictated by: Jonn De La Torre MD Dictated DT/TM: 10/12/21 7:40 Signed (Electronic Signature): Jonn De La Torre MD 10/12/21 7:46 am Technologist: JERRI [facility] Coding Summaryon 08-30-2021 Coding Summary HTMLBase 64 JmwfiaeaBBe6dMt+PGhl YWQ+VC2RODShV42snHJh sC5WP2fTXQ1CYDIDFJCD KI7HQE3upGF7GFcyB2Yl biAv XhbecXXqQQ97FOx8CLB1 sUoyPVcpdP7gyWIlR4w4 VmSvXX95lI76FMegUJAr WnX0AwLerurhcFJx K4fyDpYltKKnReb+PHRh YmxlIHdpZHRoPScxMDAl YnAuxGkwNQ8cJf8kLLSb LWNvbGxhcHNlOiBj b9wsXALpVChtGU0aeWxl K1AiyHP7CDZrk3b7Wp87 dHI+ZIKwFKC2kNdoGLuy y910ZsRyb1cqBWK3 iLPcNFtnPXB5H02uo5I2 TWXdQPKpZMV3rZM4gN1s pDpnfbmsC8LsaOJuLuF5 IGG2dCGlyM9fyEos aipxsA4zLfr+R60KVV4O ZSSDCU3YQdi9X3DxTasc dHI+JW35FOKwQW02aEJp nCNga2wsdQk6AjUt QLLlFYW7xBorEKdrf0Sx IEPsV02jqHLvg2Q2DBMp hMefxYQoLwPewHA5nW4e SDrxniula3ubgqmb Hvstp8rgli10bY74S06d GAhwUUXxGIP8CURrHNEc pJlbqw7itN5vHc6+IDxj j8fco6uzpPw0LeWa RMVujlXueHoqXSN1r9Dw Mi41J7IioNbov8BtFgn9 bc54yHDep2T6zVB6GAug ONTjvA4bUGkeCqP3 YODyOiFagF33bOQbVZtf Yy1soAvhxOqzHD5cPNTw cmukWJUukF6tOVXkhCDf kCdcDI0rIAWcexbi x101MzVaQNO6IVVxlGNb C9GiwV3rNgIcYDZoDCBk Q9MhoFXgLCncE511BPwo CoK5IFYrueRoI8Po PXVrtSeuGeM7f0B8Sd0Y p0NuelbqCZD9DQbaTCNf UoVpHfEeCtK5E4OjIwk1 SITbpOugCZ9tL3No FAYgovquyyycwLE3KQEf SNUlnV91uEMrNUlfKz2k u4S0e095UHUxDSNnnA43 Xg6ocBgmXVWygYTR nA1xemwwc8rdchnaXuMt VFClVKw0AXl2YJYkjKsu OxMcYAY7MoP4TMY3aXGe rK4hvPynkgbdjM0u Oyc+F29msD2fWKV8RYZ3 vrasBTMxhrEhDK90KK01 M8GuLexorFAtaGR+PGRp qbFrqJycTR0gJmVp s1fox5DqVXwiQ2BuYWUh KLvyKsp1ZWSpOON8lXJ5 gC3nOYZnCSwzm5A5hPS9 N1YnrsFpbt7pz1rp ZBVcLTkgI15rbKCqk0K7 HJVckCN5GMIwoYwtMfAo xB43Ssl+OEQmoOjli0Ij Xiuuu7lsu3egaAf2 IjMwJSIgdmFsaWduPSJ0 z9WeBb39A97kSOvxWWEn FTZoIQXvOQNojVsvbd0n nI2yFv9+PGNvbCB3 mKM3pB4hTBYfVjY2BTnm Z261UpXauVBtCodqx7qa o3qftXd6WpEnEGMzrlMk xJejECQ6b4YoXz77 J69xBJcxADQuVTQdNQLo KJSjdXnalt5zoI3lPj7+ ID7fp6yjrx90uR67cFX+ YZLhAAC2iXrwDEci PQBybV8wXSlxQjW7UVTf AcGsoU07iIYgEDheKw7h dXdqeVtyOF1dXCOglaiv f541UrArh4tpTXTk jOKjOPwyNTR0Q28aa6U3 HGNwPAQmSFE6bIX4dK7u bGlnbjogbGVmdDsgdmVy iYzeBFilSVwpK022 IHRvcDsnPlBhdGllbnQg EtMlCId5C4XuIkj5METc fFemSC6rhNObRWwwGx3w zQzukTznJP8qWPAz aufmm382ZbXzu9mkWMOw pCWhUBooKGS4V67jc2X0 ITYvCUUqPXY1tKQ1jX6k bGlnbjogbGVmdDsg jzMueHhpZAjaYZysT281 IHRvcDsnPkJpcnRoIERh gQJ7FP21UT81fPByx8O9 gUZ5U7MkDFGlsxpo xibyoPT0SSYpOLFgvE04 Nd8rgAqhHl9xEPTuORJ8 NKYvxBStZ1EwmY6qMtUo ROWoSONzM7PvyVPt UCqyI246KKfgDyM7ELFs kgObF3CoHZScmLzqZxK0 h9Q3Je2DP3W4UZ31AC97 eKJsv9A8pJO7P5Bd CXZdzsqxntksyQG9LWZz AAYhbG70Ti0omZyoXp7e DJCoJAT0MQZvmQBcW0Ca tA7yDeQsOUEuSMKu M2ZdaEAiWOwzU252UFhm CbY3UZVaizKkC7CmNLMy vAjpLbY8d3B3Me1FDDs4 MQ33HR47bTOfl5T3 zAS4K8AcMBPflqcsvgvy tSQ7SVPkCPPdsZ44Sl9f dWqvCv5fYGQsVBV4BSOl aSBoM1HuhK4rHwAa LFImDEXyL0ArhHNrFSmk V737ATluCsS8YJBynyFy C0ShQVYkqWxpMzB2t2F7 Un8MABMeQG65SAM7 hTZ5QU20XS12E4DcIeyf dGFibGU+PHRhYmxlIHdp ZHRoPScxMDAlJyBzdHls LM2qZb8zFNKuFUYg vBadpNBdPmRvq7lcXMTp GEnuDS4oiOouP9ZikUM8 LVTui4a5If83N45jQ8Wg dXA+CALdqZR5fTK1 zM2pMiFfRdR1SWrhV561 PdCduQScTeoji5jmp5xm nGi6VoL9VSOacdCwzVgv XYO7p6TpCt66I25j IHdpZHRoPSIxNSUiIHZh dTkuoo3khJ5aOf0+PGNv pKK4hFC0vF8mYcOxWeJ9 NZtnR165JgWlhLXo Jsahv3hvk1clsRx6AjIm PVKoypZafBplMDU3h0Qb Tj26G3HueGtqr2VaIxp3 xa57vLMyo4U4fBR8 A4EvEFLpogllzTVelKre YD7aXSIkvgdnSUVzcW2z CAKdR0i6JoXdErJ5HTdt K1QjfgQ1ARGvpOSz ZDbpVPU2E36yd2D5KSUr KWNmNSP6bOI3nK0gpZro bjogbGVmdDsgdmVydGlj ZZivSIojU082LIIj cOckZUZrxO3nMPEffPBv eJxoXF9yDYPmekxmBcYC S5LBD76EBXMMP1XSTmAv VCjZJP91C0YvLri6 RDHkhVcyGE0xkVMiUWyw Wm1cmGyflJbjJV7bAHFl jzexPDBptN0tNKGtlURh fWpeHN9gOHPgmwum q866HrPpUWQ8SVTdcJIw K3HnyB5fVdMpUQQdKCCs B8VpkSYjXFnrP479IHxv LjZ6GCJnufHhH5Wo FNVdlFhuRoE1m5L3Kr7k II2tCy4bNZS9FC21XA64 sVJmr3L3pTO4I1TjKONj jphiyuqxiPJ8WISy YVKrnU81uQSmKVwyLn6p e9Z2u354HZHfIOXwlW96 Oz2yaZfaEDFzdJMZvC3d bsgjk4lryldjDfMa GKPbCOj2YKk2SWThkZcd PdRkRXP7RrY5WVW6eETt eR7ljLidysdxeE6bEew+ CGMgVCClrmP8H1Ab Glx5NVRxsOyvYG7apVQv CSsxMh7tuLaklGqjKF5f QVBcwrluDCLqmS7dTOYd hOHqxTcgRG4tBAUz phetj466TjXlUDS2FODb pEXnD9KelX1aPhUcCQJy EEGsD3LhoNWdMZksJ357 BPxgKbR2VSSmhxQk T0SvKETycRcvAqM0n0F4 Yt4RJCnKHT55JK25wZAc o5F2oGK4G8TeVTBmvqjh tbmqyAW2BKUaHNPl oY72iDFbAEcfHq8nx1B9 r672WGRkNHMjuJ09Gm5n bGaoBSXkoYKXbQ3ylcfk b6plqazvQwQtNXRq QWb1HFw2LBJwyOgnAkVh LRR4CoD9GZN3bJRokW8g dVhlvkywaD6zAtm+T1A8 E5XbQokkpTZ+PC90 XTZgMH93bEUqlPCav1fj bWl0LqZlFSWyMZF9mNoh VWxtm7OaMYOfQ04eeCMt i3O5YQFawMwelPXo FjTliUF9dR4cNFzvhtgl s3lcgrnzKrfay8dyai98 wB59O66rONmrKQSqJAKx THWsIWRysVriiv5d fR1fMe0+RAZvsXE7yRK5 uW4mVxFrJwO7NJxiB562 DoJidBZlAsesm5qza1ab qCi6HpOdYSRrzbIf hJifNFX7a5PlLo68C61k IHdpZHRoPSIyMCUiIHZh iBwbaa6wsB0mIe6+PC9j n5epks37gG81eVA+ JOPeUGG4iXpqIUhxHNOn rI0dZXflUeG3TEClPyNl wQ48gREcAZbpLa4dqYoe uXpgRG3eBOOrengy k937UfZeo8jcRGPagEEu HDupDFH7V87cf2Z7YSGk CTElAZU9fRK7wZ8usPcx bjogbGVmdDsgdmVy gIvmSDdgXVrdD503YMCz pMksQsQhdQHgV7bdefVH LF2oKbzzmPI+PHRkIHN0 zBxfNBruOGJkmO8b BUNhV9x3KuNeNdL9PZfc N8EavkC9FTMfuKSaIKZy mLEVtI2wclepv1agfisl LkUbMQUuXOd8QBi9 YIEcbFfgHgTdVWR5EmZ2 VJG0xVCzkE9mrQqisoes tE2nCui+RklOOjwvdGQ+ LFIrMQA0kAspWIlm ACMfyW4cQHYeM0o1FyBs PbX9TCdvQ6KjtsH0GRSs hABcVNXjqXWHkJ9lqjnj r7zvnpkxKqUiHGOt GPz7ITm6COHudNhsOkSe BKY7RdN2KLT1nNHfjU8a iLjzobcncQ6tPgb+TVJO OjwvdGQ+PHRkIHN0 bFxeLSthOCJdsD7nZIQf R3u8CrMyImP9AQzzO3Wj vbT6SDWerULkSMSjmCNH gA2ymuvzq6fgioxe CjThXWOmLEi3DBv5GPCf iMtaHyTnOKQ5JdL4BVW8 cKPuaG0pqMmakpqztQ6b Oyc+SUC3ISZ9GG33 HX49K8JcRmbxjGLvjVS+ PHRhYmxlIHdpZHRoPScx ZPIqTeYaxRwsWO7rXy2i ZGVyLWNvbGxhcHNl OiB (more content not included)... [facility] Coding Summaryon 08-29-2021 Coding Summary HTMLBase 64 BogewiadQGz4yLv+PGhl YWQ+LG7XSVZtC37nyMKq eF7BV8eLEM6DKJRZEXOY KS2LUP8anMO9KApeY7Rb biAv QongsTXtDF90PDf5LZU6 oMuwVHfjhF8ohUIcW2h2 QfUfND97jB23VEbqCGIs NvH0XsRngbiwfJBh D9ufEcWpvZTrYct+PHRh YmxlIHdpZHRoPScxMDAl HtAqhFblLE0iQg8eMJCb LWNvbGxhcHNlOiBj a9pwDKHsSRobZA9xuYfp Q4VaoVW1UIMks1n8Ho21 dHI+BBVyKWD1yIdcTAxp f219HzMfh9faSDR8 dXGySRikRLB5L70fj3K7 BWLjDEJjTQY0eOL9rT8z qSnhibvdZ9MujMFoOvL8 PXO3jIXutJ2rzRtz ffbzzC5wExt+I01OMM3B KDEWUX2LCie0V0EpCgvf dHI+EQ31WYIzUT27sOXb nQIdn7gldHw5JfAj NWXlGSU8qWvkFOllz0Qc ZRDyO39gvYOjs2M8GEDw cStblJOtZrNjfUF3hX0w MDtauzvsw4wcrpiq Svynk5odgn97yG43G17s XVcmQINaWHL0OQKfIQUy iBewxe8guT7qGe3+IDxj u5ffl4zzeJm3FwEj ADKmtrDelUxjHJY6w7Ce Oa23U0PodLsts9WwStr2 cr14kDPpb5F8yOU0BWaz YNLwyG4oICroXkI6 ATKfQjQfwL25hRSqMMah Oc7jqVkwtDppGZ1jINEu ugxbVZYjlQ9jTCDntNEy jNbfWG5tIZBjmndj l164ThAsNIB1QDKxhYOc R0JkgT0bOpApCAHjCUGd O5VkaLCwKSdnC244HZdm ReQ8MOZueyKrI3Gp PINjxRkgRqD1b4Y9Tt7Z o1MvipjpKLA7GEtxQSAp IuNlIyPuCxU1N3RbNre3 ZQDtkTooQK5wC4Nl VUAncjkymmoutSM5SCYu HZJeeN75lDMgKGjtQc6x i1D2k090JOOuRAFzaD77 Gz4gtEzuNFGycQWT kM4oomxsu3aloqslMqAm FEVtKYw1DUt6CTXtrBco CkMaZTW4FiN0EUY1bJHt vT1vtWhajmhexM5v Oyc+G08paP6jCBE8UVV6 daspYPUhwhBvFB58WU09 G8RpGvagwRZksXB+PGRp zvJixVijDA9xVsBr k5auf3WaJNchG1UzYESb PYzwVwi8XTPtPEB4cMK4 gA3rWVQqCDmni2L5mMR8 Z3TqyeNril6ho1af FYDlUAljR26voZZwu0D3 SYMggPX6FEKhtUxeVuHk eY01Epv+LZYrlWanr6Jo Fqdll1ezm3rilLk1 IjMwJSIgdmFsaWduPSJ0 g8ZkUf26A36oMGwfJXBd ZHPjQCIhNTXykLhcje4y vY2fGg7+PGNvbCB3 tLD2vY1fJUUeBaY0QWck R318XlRkfUJhEawgf5hx x5igzEl3CoRtTEMuhjJd uUuzXSA2v0RmZl78 V74uHQemRQAeOQGbDAPx DHXhdBnvze5ewE7cWr0+ EQ7fz2dpwn34wW48pZS+ ZTZnRJI2qMsxRWdz JAGdhS0fUIchMsR2MWEo BgUksJ59xPIhCMocYh8n pKtdfAmgPI6rBXNmfyxd s420KdVqy4gzTCHt eEIiXXqzDKY0W06mf5G0 TOLkIYInVSR6jAQ5tK3b bGlnbjogbGVmdDsgdmVy eBdjXVofSHhlI910 IHRvcDsnPlBhdGllbnQg SqBmNEf7G5JaOqp5QJFr pYxyVE7udYMtCSdoKl8r jVdtwVukCD2uRPYc prbiv843GnOjd0qlCPVn iJCoTRebHAV5S91lr5R6 ZVUpZSDrIFZ9tQY0lT1e bGlnbjogbGVmdDsg mqTnzKpqDQwmMYceE303 IHRvcDsnPkJpcnRoIERh xNW3CQ01IX14nTGpk5X8 pVO5S9PhUQLowkdu druciMT5DPNtVJVwmE46 Wk1jxVhnUl6sVPAjREQ6 TIJduGXeS7McsW2gJgFr UHBqFGUpG6YjpVXs ZIiaT419JMrvHgE0AYBa nnBzK1ZhMDGkaPlnAuL6 p5N5Wf2KJ3B4SY02MT88 sGLff7F0hDR6Y6Ow QKUwipwxdoeyyDQ6BZCd FJEsiU45Gd3jsSznZg7w FXBfMNE3ZLOviTUeQ3Lu bW9jFzSrJQNtVMYi X5MocZXaJXzrB339ZSrt VkO0UCRrdvPtN9MxCDGm rOleRrB0w0N6Rk3QSSz9 OJ13VY80tZInc3K6 iVV4I1HvHAMmrkftcwfs yBU7KUIpJSDnmJ20Za4q lKvuYe5aADRqGKF0RDBt aZDjU2GnsH7iMbMl LJTzLSEfV3NrwXLrQPdo Q204UTfpSsZ9CEYgeuTm X1ZlCEEeeIxnZzW0t2L2 Qt9EHTSeDQ67TDA1 sEA1FP32KX40L7LbOpnx dGFibGU+PHRhYmxlIHdp ZHRoPScxMDAlJyBzdHls TT0wSz4bDUPbXUHa hAxgxIPvFxLxz4csMSVx UCexTR3rgAkrT7BvfRC7 TJNtd8c0Wo63F15vX4Hq dXA+YAVpzIW2uQW1 xX2hJoHvHpS7IMygM306 GxLchMNwPlmpu6tef2wv mKm8VaH9CPXeoaXlrHhn OZA4f7YsRk64Y64w IHdpZHRoPSIxNSUiIHZh lXriyo0tkD6sDd6+PGNv zDQ9qEZ6eL2tTeNqUlP5 OGvtM062IaHxcFPy Mkspo9ath5acbZt9SnQp JPGuloWfaMegJRV8j0Ee Pc04R8NrlNdcj1ThUic8 in07aTSbb6E4jER5 G5WvSFGhjuvypKVcaSew RF5sIMXongguLDQnlO7w VOHcO6s1IyVeAvH6QJdh A5WekpU9QJZdhSLm SDiuDIS4V81ny9S0FYGc NELcDAV0bMZ3lI9knIve bjogbGVmdDsgdmVydGlj ZHjdNPitK921UFKu zFxdRVXnqW2aWWVesTZk mWyuTV2bANDomuuuPpJN K6MYP03EPYBMU0AXDkZm DFdUOX22G9CyHtd1 OWHheOszME4rbOOlVCri Lv7bhNnvdYoqVY4hWDZz exrsZYOulB5gOFLreHCi gRumRR8xOOJnxygp h667MuZrUMU6JZTirUSn D1AllM4rScVaKDAoMCCe K4OaiTXjROmpM967YRls IvI7FRDcckXcQ4Kk UTYwdNtdIlT8c2C5Hr7n XE4yFl0rPJZ8CM88OW19 tTBpq0J8hJJ1N9StKBFa xogfwzfgaYG4HYYl NOZhlU50uWNfTOsqGo8q x3F1s101ERQnMOUopA15 Wf2xlDrbBVPmtZQKgN0p efdpn3hfvdegQcBt OUWmEXf9GCb3WQZmqNjw DvRzUEA1SyO6GZL9iAQg lP9tyWzpxwzwxF2jSbu+ VGHaACPkgmY1B8Ho Vir4EOSyrHocOU4leWXz NVjfVv2abOynsChiMH2z VEWcjvylDWGklU4cMDZf dITmoXlaZF3iELKj hgdsp635HmVqKHH3NXBf fBTgH1GwyO6jDiPcHVGl AZTbE8NpwFJgIUrrA181 IJsvQrI0VWXdwoCh X1DsZXXfvHpuVnD4h8T7 Hs3FMJeRUF55IC58pBEp u6A0yXD9R1FkJZGismoh jkdoaXG1FITiULYt oV26aJNsKQovQm8el9G8 u514JFPxBIHbvZ96Xw9v uWxhSKXpyMTQeW6yxzto a8vgayitDjAoKRPn URi0NRa9FTWywMunGdPq WRM1PqV8SUU7xUAitJ5v fNnkwauleW0iLep+T1A8 X7JvXmtevIR+PC90 PKBxZW18yAYfeGLhs9eq tPx5AbYnDUDmNRP2nHdn KDdbm6XtMYIjN88tiFNp m9P7PPZkpXfliMGh OcAopPE2zV8mWIcsbnts n1tmmlhhWuivv8syne97 mF02O78gJLovMBRuVWGu RYFvLTRctUwnys3a kL5fXm0+OYZwxFZ4sZM9 oW7vQuAbMlA1OVlsK506 JjUneLSjGwhxj2nuq6an bHv8RwIgYIMqsyLd sDvrGHL6l6SlFs36P67e IHdpZHRoPSIyMCUiIHZh qFbouz8peJ9jIh1+PC9j o3lfwf07sY29cTB+ KMLwWHJ4lObwQJfaWZAm yH9zGQuzZdH7RZJwHvIt qX85uSJcWYcdSn4xeSte vPxnMG7qKZTkallg m316QwExw3ccNABbjRHz DVncLUX5J98bw5K2EHQl BNQkCFH2jAQ5fI8poBwj bjogbGVmdDsgdmVy oBegLZaeEIgtK223TJEa rRuvYoKyjKCdO4eovxVB RF8oCnabyZR+PHRkIHN0 iNirLIgsCJHiaQ7i PDTmK2v3QcZzIkT2GKpv B0OxeyL2WRXedSGzWRBd hITGpY7eswgpv6opsugn ZdWuGEDzJZz1WUj2 FFUzqQhtHxRxAXA1RaX6 AZY2pUQgmO6zbEhtagss lP5uIfg+RklOOjwvdGQ+ LQHnOQG7mObhRXvb AHEadR3dGZZgT7y8NtVb GdX9RVdiB2IkapH3KPRl gBEtQOWuuRHEhT4pduhh v6qtkafgDoYrTMCe DEr0QPm8YPOplZofUtRv LPC6JrW5PWW2jHUldA9g bWukgtjhaO4aAya+TVJO OjwvdGQ+PHRkIHN0 lYxfNDduLXZkwD0cOQWn G6y1NmQlCxC1AMnmL6Gl duF1RSStpXExHPXegOTY hE6krjnqh1zcandw EkUoKITqHGq5GFz5GFMj mHkySfKaRPB1KxL2ONX9 dRPmvK6ywKquwutpdP6p Oyc+XOD2IRA8YH85 KN22J4HzWzikpQJkeOK+ PHRhYmxlIHdpZHRoPScx VKRvFpXncOuqBD6xUt1g ZGVyLWNvbGxhcHNl OiB (more content not included)... [facility] Provider [place] 08-29-2021 Provider Orders [id number] #1.00OTGTIFF [facility] Rad - MRI Reporton Rad - MRI Report [id number] #1.00OTGTIFF [facility] MRA Head w/o Contraston 08-10 MRA Head w/o Contrast MRA HEAD WITHOUT CONTRAST; 08/27/2021 2:19 PM EDT Clinical History:LOSS OF BALANCE Comparison: None available . Sequences: Axially acquired 3-D gradient echo series for the purposes of hmen-bt-pggbgq MRA. From this data set multiple volumetric recons in MIP mode were generated and reviewed. VERTEBRALS: Medium-sized codominant blood vessels which are widely patent PICAs: Early takeoffs bilaterally. BASILAR : Vertebrobasilar junction is unremarkable. The basilar is widely patent AICAs: The right is patent. The left is not seen SUPERIOR CEREBELLARS: Patent and symmetric POSTERIOR CEREBRALS: Basilar tip is unremarkable. Left P1 is unremarkable. Right P1 is fairly hypoplastic. P2 segments are unremarkable EXTRADURAL ICAs: Widely patent and unremarkable INTRADURAL ICAs: Unremarkable ANTERIOR CEREBRALS: The left A1 is a good sized blood vessel and is unremarkable. Right A1 is absent. The [employer] is unremarkable. A2 segments are unremarkable MIDDLE CEREBRALS: M1 segments are widely patent. They branch unremarkably. P-COMMS: The right is a good sized blood vessel and is widely patent. The left is either tiny and beyond the limits of resolution of this exam or is nonexistent OTHER: None IMPRESSION: 1. Some variant anatomy. No acute findings are evident. Final Dictated by: Rosa Deshpande MD Dictated DT/TM: 08/28/21 7:21 Signed (Electronic Signature): Rosa Deshpande MD 08/28/21 7:28 am Technologist: JERRI [facility] MRI Brain w/o Contraston MRI Brain w/o Contrast Begin Addendu m #1 Addendum: Correlated with MRA same date Final Dictated by: Rosa Deshpande MD Dictated DT/TM: 08/28/21 7:28 Signed (Electronic Signature): Rosa Deshpande MD 08/28/21 7:28 am Technologist: JERRI MRI BRAIN WITHOUT CONTRAST; 08/27/2021 2:11 PM EDT Clinical History:LOSS OF BALANCE Comparison: None available . SEQUENCES: Per routine unenhanced protocol. STUDY QUALITY: Modest motion artifact on axial FLAIR despite repeating the series On this unenhanced examination, no evidence of intracranial mass or mass effect. No midline shift. No evidence of acute infarction. No restricted diffusion. No unexpected paramagnetic substance deposition Minimal periventricular white matter changes may well simply be age related VESSELS: Signal voids are present in the major intracranial blood vessels. BRAIN VOLUME: Normal VENTRICLES: No hydrocephalus ORBITS: Orbits are grossly symmetric and unremarkable in appearance SELLA/ SUPRASELLAR: No acute findings at relatively thick sections CP ANGLES: No acute findings at relatively thick sections UPPER CERVICAL: No distinct evidence of acute process PARANASAL SINUSES: Modest mucosal thickening in the ethmoids bilaterally. Fairly mild mucosal disease in other aspects of the paranasal sinuses MASTOIDS: Clear at MRI CALVARIUM: No acute finding is evident OTHER: None IMPRESSION: 1. No distinct evidence of acute intracranial process on this unenhanced study as described. Final Dictated by: Rosa Deshpande MD Dictated DT/TM: 08/27/21 2:43 Signed (Electronic Signature): Rosa Deshpande MD 08/27/21 2:50 pm Technologist: JERRI [facility] MRI Spine Cervical w/o Contr indu 08-27-2021 MRI Spine Cervical w/o Contrast MRI CERVICAL SPINE WITHOUT CONTRAST: 08/27/2021 2:55 PM EDT History:CERVICAL RADICULAR PAIN Comparison: None . Sequences: Per routine unenhanced protocol. STUDY QUALITY: Reasonable. Some motion artifact on several sequences. Images are also somewhat grainy. Question decreased NEX. CRANIOVERTEBRAL JUNCTION: No acute finding OSSEOUS: No marrow edema pattern or compression deformity. The marrow signal is moderately diffusely low on T1 SPINAL CANAL SIZE: Developmentally is probably a little less than average in size C1-2: Exam in sagittal plane only. No central stenosis C2-3: Mild broad-based spondylosis is slightly canted to the left. No posterior ligament hypertrophy. No central stenosis C3-4: Mild retrolisthesis. Moderate central disc herniation.. This moderately effaces the anterior aspects of the cord. The posterior ligaments are not hypertrophied. There is a moderate to significant central stenosis C4-5: Mild to modest right paracentral focal spondylosis or disc protrusion. This mildly effaces the cord. Posterior ligaments are not hypertrophied. Modest central stenosis. Bilateral facet overgrowths C5-6: No HNP or central stenosis. Mild facet overgrowths C6-7: Minimal anterolisthesis. Minimal midline disc protrusion or focal spondylosis. No central stenosis. Significant facet arthropathy bilaterally with mild overgrowths C7-T1: Slight anterolisthesis. Minimal spondylosis. Posterior ligaments are not hypertrophied. No central stenosis. Significant bilateral facet arthropathy. T1-T2: No HNP or central stenosis. T2-T3: Mild broad-based spondylosis midline than the left. Posterior ligaments are not hypertrophied. Very mild central stenosis. OTHER LEVELS: Exam at T3-T4 the sagittal plane only is negative for HNP or central stenosis CORD: Focal area of thin fairly T2 hyperintense myelomalacia at C3-C4 level. This measures 4.6 mm in z-axis and is approximately 1.2 mm in AP dimension. EXTRASPINAL SOFT TISSUES: No acute finding IMPRESSION: 1. There is a moderate to significant central stenosis C3-C4, largely secondary to a moderate central disc protrusion. Focal thin myelomalacia at this level. 2. Modest central stenosis at C4-C5 largely secondary to right paracentral focal spondylosis or disc protrusion. 3. Marrow signal as described. Is there anemia of chronic disease? Does this patient smoke? Marrow replacing disorders not excluded Final Dictated by: Rosa Deshpande MD Dictated DT/TM: 08/28/21 7:29 Signed (Electronic Signature): Rosa Deshpande MD 08/28/21 7:38 am Technologist: JERRI [facility] Physical Therapy Noteon 07-12 Physical Therapy Note [id number] [facility] Provider Orders [id number] [facility]-2021 Provider Orders [id number] [facility] C[facility] 2021 Coding Summary HTMLBase 64 TehdlesbQEo4aEn+PGhl YWQ+UP8QDLTdH61yvCYd rR0EC5lGOJ8UWVNOZZOB RR9WAS0ihXL3ETvkE2Uz biAv EirwfIBkKI17JWz5NLV1 yJxcLEisnL4piOCiR2b4 TdQvMF30cW69OGfsZTYv VlJ4PfYfzlgacYHc P1hpWsSooOKvDkx+PHRh YmxlIHdpZHRoPScxMDAl YfYtnJpuYL1sBs0bTHXx LWNvbGxhcHNlOiBj h3xhMUAnCOwlHD8vsPme H2UrkMG4IUFee8e7Rj49 dHI+EKBqNHV3gXceKHcp a686TkQhd3nbETP8 jTQbKNbjLSE0W57vt2L8 EBRvLPNdKJI5uEN1qF1x kMftcjeeE4DkiNSxXhH7 RRH9eCSnjW1wlZog krepkA0gHje+Y83LHG7A JJFGZS3MMzk2T7HeRfkh dHI+XY14RMLkMN88pBHk aHGsb3dicVa5PpPn HHCxWDU0uMwqJGbml5Np MLVfL35ynQTiw8C2DAWd cIhhjDWkLgHbvLP0kO2a LBfclskph9efmxpb Wprpw5kuzr93jZ72W72t SHqyMPAjOUB0ZPOzXWGe wNmqtk6shY7bIn8+IDxj z9oba0bnaAf1KwSq ULIkyrQcnXaeLVS1z3Wu Mi46P7NqhCbpk2RpYzz4 zv97jYFjg4T4eFI7IPjq NTXdlN1oKVyePhQ1 KNSoMfRqeY92eRPbGAev Ht3pnZotiZzpCP5qVAOo jbynKQWkpB0mJOPozEOz uHwiOD0bHNFjzflm q504BdWcEAB9IWKofKOs L2FsxN9wQlRhJLXyKIDl J3YfoCGgHPzsN589BMeg WlA3DOIhluDxV4Og SNTrgRozDnT9l3N8Ip8W u8NnlyjbPMM5FFsxZCC4 UxV9KmRoXnF1F7OdMal6 RKAzxOmoSJ8vM4Zn JBTtptpdmrisgRM2IZZs ODHsjA28qWAwKMpnJy9p v6N1h376EHGoJZLvaC45 Ay8kfLbsEOHnyTGL sN3stdlpe7kfvbigEiDg MSHuLQn6RTn3DMWlmVid NoAgMZB8UfY9GYT7pQEc pO4wfSniygutgA3z Oyc+Y19diB2jZZR0ZHI4 bqhtTZPkvxRrXS97BQ56 A0OrKpnyoEWxbXK+PGRp jsDlqJeiEW9uShJj a9yqd9RrXTttH6LqUKYo NBbxWls2SODdRFG7rUI5 wZ6zUWBpJBlzh0Z8lGC8 E5BbthPsbo7ik2vj WQGtPBaiN93auTImh8A5 AXVlzOB1MVItmRwwGwHu kZ86Wla+RCEmcHutr3Xk Lddgz4yan9xydSk3 IjMwJSIgdmFsaWduPSJ0 u5WbOd29D37fFVdsHGWb SYWfJOBdQOLcvIrexq7u xV4kIk6+PGNvbCB3 uVJ4aZ3dKBPcFfC5NFfc X054HdCwhLWnIoxoq7dq d8asqNv0EmOcSUFximRi zVucPSR2r8BcNm05 R95dQTlkOVLkQVBgHQAd NGNphGaizf4flS2xMg1+ UQ6db0rnpf50dJ96wWD+ BJPiJDP1bTuqOOhl MIDczN8nMBkeXrX7NZLd JnHbhZ37dMKaUVewAd7l yTvmyHfvKW2cTQEaatso s345XfEvy3kyLHSv gDUyEHucTVY1M20lg6W2 MBBpIODiQPY1rJC1wE1t bGlnbjogbGVmdDsgdmVy cOzeCQibGJkgH735 IHRvcDsnPlBhdGllbnQg SeFfZXq3E8XyOze4DPXp wKibPJ6nwXGtGHpcKl8d lNjfnGiuYW0yKPIu pyujd008RfHsf2siJCWr eHKmLAsfEYM6B28xy2M7 LXHxHSZcZOK8eWN7iU6i bGlnbjogbGVmdDsg ofAouIqyJTyvEUkrO551 IHRvcDsnPkJpcnRoIERh nFJ3VL35BD35dBPpd1W9 nXA3A2KuAGFzdbix jdmmhUJ6KPIeAVPzxL06 Tu2smUlwIg0vZYJsPCZ7 BHUhwZHjG3CvfS4nGyHt TRBqEHPuY5EfgRCp XLvmB912JWvxIzJ0VAXl ysDsG8AzXVIscTiqByZ3 c6C9Sq1WF8V9IA19PM23 cGRyz7X5gFY6B4Bl EEIjdnmdtdhlcCX6EADk WJKvwS32Lo8qiFngNy5w KCDxSOK3VXCkfAGxE5Se xO3hAdErEOPkNPXj K1AyaRJgRSbxM594GWyo NiT7AMAaxwIbH5AfXNBa qQgkKcQ4u5R3Ks4NABu0 XP52RI08jOIxv2K2 rPP8Y5GyCHXjuipwlvlf pSM9OMFiIDTzgV75Fe9h mJyhGq1yVABgZLJ8PWKm pBMqL9XrzY4zKyAl MEXgUFDqL9SevSDkOMhu Z510RKwoVcY2DXJwecGu Z1OkPTAtwXvvWkJ4c1J4 Vp0RGFTvVD43HXG7 qBI2MW57FU70S1IaTvit dGFibGU+PHRhYmxlIHdp ZHRoPScxMDAlJyBzdHls SJ8hJz3bCLLwCNGg bLscrSZcOkMoq2dnFHHf NByeUY3ltVxmW1QguVT9 ELXuh7u2Xs42S55sL9Aw dXA+HDOcqNV7dTQ7 oF8mRmMaCrP9DJxaS223 MyCbqAWrUxayl8vjw2bv lEk2ZaE2KPLyeiEemCob FLK4a8ZwFw88T20e IHdpZHRoPSIxNSUiIHZh cEyblk3tjA1hYc8+PGNv yDW7uTW0iP5qJgDpNkD3 FEyfH989LcJvdZUp Unrrl3ukf2rhrOq6VeRz OULdaoBvjWdiQXE7o5Lq Km80J4LrjSzso9PrZqt1 ip96eITem8G6mOO2 V5XiBGYyvcelgNZrlTnc FC8hNNCpurkaGABhiA6h NWLpH8b5VvSgRkX3OWdb Y1RlxsE7DGIzoQFy XFbwDJV9T76ky1C9FXGf RHNwIGC3nFY3qI5liLfm bjogbGVmdDsgdmVydGlj PBscITffQ529VEVw sCdiFXRdqH6tOYNwmYWf eJelAK9bPYEcckzfSaAF Y9PLK75AQUVLK8XRKuAg KKrKUH16K7HvCzu0 CCCbmHtwHT6wvZVxQHwl Kv0olUkimXcpXA4mNQRs glotCSQvyE6aWDYfjXYs zYpzEH0vBPEptokf h127IcNxIKK3HFTywVGz X4MsrY2bXiQmIUOrGTRu E5OwlRRtHQwyT547MNws OxE8AZLwsaCrO9Si KINygFtrDdZ8j4Z2Nu9d QR3pWe2uPMO3DW23TE17 rSKpn6M6iEV0R6PeHFUc dzvumximwOP6PYEz YOIacY42gJTgXHlsPu6e w5R6r273VVXoJBZvyX69 Qq5vvPvuPZBrhWYDiG3d rmmkb6gnxbpwPwZi HXCsWYf5VLs5NESvqFzy SpPdELU9IpL9AUM5zVIb jI9crZtbmvollS2yPhr+ QFDfMHWaszH3U1Aj Lpr1OOAuoNojVV3wpEDg MVmpRk2vvVyfqCplKR3q PSKdsjrkMNJedR2jARLw wFVryHniOS8xSVLe ffmmr077NcFaCIW1YYXv fSWwI7UhjI8yOjEkJXMw QTUkV9EfrMUuESaaW186 HJsoEsK6FBWevnLn R9YdOJIjuSvuXnX8o2O1 Vg1RHFlDCL18LS92cCEd k0A1fYW5T2RqUDKrpnjp odhrmKO8UIJcPXQl rD99tRQzUAeoIz3yh5K6 s134CUJeLJCcrJ69Cs2n mCsqGADaoQZEbZ5hsylp b9ixhzorKzKeBVRy ZJt0TTy1LYUpgAwhBwFy YVX2DaJ5HQF4lHJglO3o dQnzrhfmxQ9pPsg+T1A8 E4ImHrfcuTN+PC90 KSXoAH61iHIfrPDuo9yu xAt1HcTuQMKdINH7hShp QFpnu8FvRAGpW58dfOWv d8X0TYHrbFubfPXl ZuZfiRE8kL4rWZpxpipx j2fpfjplTqxju4sdzq26 sT71J09jFHncTYNjPWRq LTPlTDIspTobdh4n hN0uCd5+EIUcdAT3vBE5 mD2fNwGgWjS6ZIrtF859 AcYzgOSxTczrj6qnc5hh pNn6EzObCZMyqlHk aSrwRDN3v1GbGf26J31e IHdpZHRoPSIyMCUiIHZh hJlhfs5meN5xAw3+PC9j b2wzql45iD06mBG+ ITWhABI4hPpbQUskEAXs gV4hDKcaOcE8JLJtCxFy vE90gPNgIJvxQh0bdZpm pBggNF8pBFHkzsfi j069YqHkg8euHAVtaTWq GOkrYKM1O32yq4Y7IWLo GKFfQFS1iGL3hB5otCif bjogbGVmdDsgdmVy cMmkJEqyBYbrV520QKNn zAcuScPteFFmF5aeliLC GY6kLcbwwMA+PHRkIHN0 nBktIZunYLWoeO8u WYVeK2z2AnEzUhN1EQqf D7ChubK4MEGyfDEqIQAs kCWQzW3uncjrt8afcoxe MuFoPJByQXe0FFs9 KGWaaLfsAeLgZIN1CsA2 ZIB9iSTsmK6ejJisozgh gD8dVtk+RklOOjwvdGQ+ QYKeLGM0sSefLFlq QPPncD4uVAIxP8b9FlIg JbF0MYchQ9WxgeB7LIYu wBCsPKKjgOSCiE0fcwuk u2yjpfhtJeKgBCMl GTz3CYy6TPGhgWpwMoLd DNC1JfW7BJF0bJKbcR8x gEeixanevG5yNpe+TVJO OjwvdGQ+PHRkIHN0 wNuuAKagUMCusK7mJNRg D8j8HdKwAqG0QWynT2Bs cmH8EEOhwZEpFVCapUNW uQ1vofgfl2mlzolr MsVcPSOjOZh3TYr5LOEj zOtfLkBdTAR2UjP3FPU1 aGAxzQ8guDqemlhusT2j Oyc+DRJ7FKQ3JX32 ON25D6GaZympqAAdvCH+ PHRhYmxlIHdpZHRoPScx ENDcCoQsgKxlZX6sYx7t ZGVyLWNvbGxhcHNl OiB (more content not included)... [facility] Provider [place] 08-16-2021 Provider Orders [id number] #1.00OTGTIFF Normal [facility] .Auto Diff 1on 06-22-2021 Auto Terry % 10 % Normal 1-12 [facility] Comment on above: Performed By: #### 1 [id number], [id number] ####[facility] (DEFAULT)[address] [place] [address] Baso Abs# 0.2 x10 Normal 0.0-0.2 [facility] Comment on above: Performed By: #### 1 [id number], [id number] ####[facility] (DEFAULT)[address] [place] [address] 58918 Basophils/100 WBC (Bld) 1.9 % Normal 0.2-2.0 [facility] Comment on above: Performed By: #### 1 [id number], [id number] ####[facility] (DEFAULT)[address] [place] [address] 33923 Eos Abs# 0.4 x10 Normal 0.0-0.4 [facility] Comment on above: Performed By: #### 1 [id number], [id number] ####[facility] (DEFAULT)[address] [place] [address] 78517 Eosinophils/100 WBC (Bld) 4.7 % High 0.9-4.0 [facility] Comment on above: Performed By: #### 1 [id number], [id number], [id number] ####[facility] (DEFAULT)[address] [place] [address] 92115 Lymph Abs# 2.9 x10 Normal 1.3-2.9 [facility] Comment on above: Performed By: #### 1 [id number], [id number], [id number] ####[facility] (DEFAULT)[address] [place] [address] 09105 Lymphocytes/100 WBC (Bld) 33 % Normal 14-48 [facility] Comment on above: Performed By: #### 1 [id number], [id number], [id number] ####[facility] (DEFAULT)[address] [place] [address] Terry Abs# 0.9 x10 High 0.0-0.8 [facility] Comment on above: Performed By: #### 1 [id number], [id number], [id number] ####[facility] (DEFAULT)[address] [place] [address] Neut Abs# 4.6 x10 Normal 1.5-9.2 [facility] Comment on above: Performed By: #### 1 [id number], [id number], [id number] ####[facility] (DEFAULT)[address] [place] [address] Neutrophils/100 WBC (Bld) 50 % Normal 44-88 [facility] Comment on above: Performed By: #### 1 [id number], [id number], [id number] ####[facility] (DEFAULT)[address] [place] [address] CBC w/ Auto Diffon 1 Erythrocyte distribution width (RBC) [Ratio] 13.2 % Normal 11.5-15.0 [facility] Comment on above: Performed By: #### 1 [id number], [id number], [id number] ####[facility] (DEFAULT)[address] [place] [address] Hematocrit (Bld) [Volume fraction] 45.3 % Normal 34.8-51.9 [facility] Comment on above: Performed By: #### 1 [id number], [id number], [id number] ####[facility] (DEFAULT)[address] [place] [address] Hemoglobin (Bld) [Mass/Vol] 14.9 g/dL Normal 11.8-17.7 [facility] Comment on above: Performed By: #### 1 [id number], [id number], [id number] ####[facility] (DEFAULT)[address] [place] [address] Instr WBC 9.0 x10 Invalid Interpretation Code [facility] Comment on above: Performed By: #### 1 [id number], [id number] ####[facility] (DEFAULT)[address] [place] [address] 22448 Man Diff? Auto Normal [facility] Comment on above: Performed By: #### 1 [id number], [id number] ####[facility] (DEFAULT)[address] [place] [address] 96493 MCH (RBC) [Entitic mass] 31 pg Normal 24-34 [facility] Comment on above: Performed By: #### 1 [id number], [id number], [id number] ####[facility] (DEFAULT)[address] [place] [address] 85874 MCHC (RBC) [Mass/Vol] 33 g/dL Normal 26-37 [facility] Comment on above: Performed By: #### 1 [id number], [id number] ####[facility] (DEFAULT)[address] [place] [address] 59082 MCV (RBC) [Entitic vol] 95 fL Normal 81-100 [facility] Comment on above: Performed By: #### 1 [id number] ####[facility] (DEFAULT)[address] [place] [address] 77173 Platelet 295 x10 Normal 138-427 [facility] Comment on above: Performed By: #### 1 [id number] ####[facility] (DEFAULT)[address] [place] [address] 86369 Platelet mean volume (Bld) [Entitic vol] 9.1 fL Normal 6.3-10.2 [facility] Comment on above: Performed By: #### 1 [id number] ####[facility] (DEFAULT)[address] [place] [address] 60533 RBC 4.78 x10 Normal 3.70-5.30 [facility] Comment on above: Performed By: #### 1 [id number], [id number], [id number] ####[facility] (DEFAULT)[address] [place] [address] 93565 WBC 9.0 x10 Normal 3.5-10.5 [facility] Comment on above: Performed By: #### 1 [id number], [id number], [id number] ####[facility] (DEFAULT)[address] [place] [address] TSH w/ Reflex to FT4on 06-22 TSH Qn 2.41 m[IU]/L Normal 0.45-5.33 [facility] Comment on above: Result Comment: Gene ral Population (males and non- females, aged 21-88) 0.45 - 5.33 Females, 1st Trimester 0.05 - 3.70 Females, 2nd Trimester 0.31 - 4.35 Females, 3rd Trimester 0.41 - 5.18 Performed By: #### 1 [id number], [id number] ####[facility] (DEFAULT)[address] [place] [address] 38819 US Carotid Duplex Bilateralo n 06-22-2021 US Carotid Duplex Bilateral DUPLEX ULTRASOUND EXAMINATION OF THE CAROTID ARTERIES. COMPARISON: None. HISTORY / INDICATIONS: Evaluate for carotid stenosis TECHNIQUE: Bilateral common carotid arteries, extracranial internal and external carotid arteries are evaluated with hogan-scale imaging, color Doppler, and spectral analysis according to a standard protocol. ICA-CCA ratios are calculated with financial services representative peak-systolic velocities and recorded. Vertebral arteries are evaluated in one segment to evaluate for patency and character of flow. Comparison with previous evaluation is performed when available. Unless otherwise specified, all velocities are measured in cm/sec. Carotid stenosis is reported according to validated velocity parameters, similar to NASCET criteria. FINDINGS: Right Carotid: Mild plaque was noted. Velocity measurements as follows: Internal Carotid Artery 81/30, 117/46, and 93/40. ICA to CCA ratio: 1.1. Left Carotid: Mild plaque was noted. Velocity measurements as follows: Internal Carotid Artery 86/32, 106/44, and 109/42. ICA to CCA ratio: 1.0. Antegrade flow was seen in both vertebral arteries. CONCLUSION: 1. 40% to 59% stenosis of the right ICA. 2. 20% to 39% stenosis of the left ICA. 3. Vertebral arteries are patent and demonstrate antegrade flow. Final Dictated by: Jules Tilley Dictated DT/TM: 06/22/21 1:37 Signed (Electronic Signature): Jules Tilley 06/22/21 2:18 pm Technologist: PM [facility] XR Chest 2 Viewson XR Chest 2 Views EXAM: XR Chest 2 Views. HISTORY: Current smoker. COMPARISON: Chest study dated 11/03/2018. TECHNIQUE: PA and lateral views of the chest were obtained. FINDINGS: Heart and mediastinal contours are unremarkable in appearance. No acute infiltrate or consolidations are seen. Slight convexity of the lower dorsal spine to the left with mild to moderate degenerative changes. There are areas of ankylosis noted anteriorly. IMPRESSION: No acute process seen in the chest. Final Dictated by: Nguyễn Aranda MD Dictated DT/TM: 06/22/21 11:23 Signed (Electronic Signature): Nguyễn Aranda MD 06/22/21 3:55 pm Technologist: SE KATHY [facility] Coding Summaryon 05-23-2021 Coding Summary HTMLBase 64 LhenolqhKYc4gKk+PGhl YWQ+VJ1FUACiK66mzQDz hV7MQ1oFOE4UNLXDLPKO IT4TUS1kzHZ7BNfwV3Ge biAv MeuaxTNgOV37QFz4QFR4 vKadMFejrN2loRGjZ2h9 LqLgPA45nW86GQelKGGq WbP6WtJrpnzmtIRz A7hmAgJciLHvPdu+PHRh YmxlIHdpZHRoPScxMDAl AnPmkCasCB9eTc0kPYGs LWNvbGxhcHNlOiBj u7pjPJRbGKazWX7jiUcz A1AfnCO1YONko4p4Vt70 dHI+PWObEGN3wTccNYoj b486ShSwu5ykCZY0 yAYoDAruTDB4L84bt4L4 BQGaFCQpFLR7iGN2tF3c lEkegsetP7GbuPGoIqB5 VRO7oCCtyN2laHzi gynskL1wNmc+A06QAJ4U OULIZZ1XFyq5Z3MtGdfj dHI+BZ50ARGaXZ90jZLv eGXoj1hwzQh0IuWj SJSbMRM5vJwpOXsug2Ra BFLnL08nfDZmj4L0NEXv lJyjeINpHkFdlGL3yQ0w TWhctqbau6zasicw Eyyht1cnzr02vR45H34f RNkjCVXqOUE9SNXzFJNc eJtsmk5kbH4eRd5+IDxj p4cxd1nqxMo6JoEl ENLjehKavMkdOPC5t1Cz Uy09K8DyoPffn5ZnUom9 xf44nJKxx4N3sIA8MElj UCQqyA7mNCblPqK1 QOFvBqPdrN18tJUzYFzn Cw0cwPxwnDxfJV7dLQIg sszzKWChsO7wFTRsqCKg dMirAZ1kUSYuavke r911SlQhJRM8BIQniUBl X4HayD6aDrDrZAUkOZBu P8YnbAAgMRwiJ279HXis XyI9YBGowkRvB7Bk SGMyjSjtEiP4z5H8Du0M p6RmotidBFT0JHfqATK8 NbO1EaRpAmD9G0KbQat1 BWGzeItxGR4uH6Xe ONBmfigaulregUV5DTNu OXVmnR00tEWbMZrrLd2a a3Y0u771QZYgBWLdgU29 Ju7byRhhZVSehQFX uS0oyfjlf2ovhbtkQpHa TYOeKDl0XYo8BSQynCcn PyYoQDV0XvH1ZCX8uXSh lV0hcXxmaaepzR2i Oyc+N62nzS6vTQF2HPL3 rmaaXEOmcvQgUL22BH06 T5UnZdgxjSUgtDL+PGRp brGjcBdjGW0jBkOm f3oml8YuCLyaI7EzDPHr HMweLpw9TQRsFPL3dLO2 kK5fRVTzHHeaa8F2pTP9 H6AfftTbmg2xq2tc NLArXFlfZ29acQWht5P5 LSNrvTV4RKJoiIcoLmXi hL41Hjh+QLOxnHzvr4Xw Kadxq3ivt7jnqHe0 IjMwJSIgdmFsaWduPSJ0 l2EhUd48G84vXWjnUUMk SJCsUUAmCGXwuVizek3x lO6rXn0+PGNvbCB3 cRC7tL7lDEUeOhE7UNho D595YtYyxNYuTumoz8xi x6sbsHa0QtMnDOXwylTk fWmjQBA9a0RxRw76 Y26oAGqfKLClXQQeCVJa KALvhOwdub7djR2zPh4+ VY5uo8kikf20vG19cUB+ DINfJTU6bKmuNEwl RHBjyD6aCSjaVwU8YYRm JgRnjW24yURgRIdvCz4k wJbchDsmTB2mGFLtyudu t066ZvLpi9taZZUw eLEwRCioVCS8K23dd2W6 DVJoHBNuYRX0yVV2mP3c bGlnbjogbGVmdDsgdmVy qBcbYAyiYDpaF685 IHRvcDsnPlBhdGllbnQg QdJlKOl8S2VrHev9UEHk mWswJM5rsFOgYIucUn8f cMuptZquVW9zKZTy ovbzu931BkQvw8dvBAMa lDPzPZmnIVL3V21qv7M3 DXWlWTEiWLX4rJT2cE5z bGlnbjogbGVmdDsg gjKleRbaDImhMZvuH876 IHRvcDsnPkJpcnRoIERh mGP5CU52SW48cCPbf4D3 fHC2F1KxTKKeeunu zmpbsBG4NPMmTVEgbJ74 Mf2geXloJl0aYPWbSYR0 XRCofZPpL3VtkS6aVvQr FVChHXBmY1AzzKNf LGxoP136MFsrWcF9GXWf swPyG9XfYWSdfUgcBzG6 n0L7Rs3EB5B7HV09NT62 qSGkr7W4uEY9Q6Dt HAQlyvltwyhlhYX2RZJu OOHsgD42Tj6pgBjcVv0z TKVpFSV5GNBphYYbI3Qm dR5hKdYfNBQlXQAb E3RaeESeGTwzS621ZBic CzR9PJHozmKaZ3ZoXVCt rZsrVjP3n5C9Wp0GDQn6 NI61NF75mCIhz8G0 kJZ4Q0LkZZWadqhokuco fKJ0PASuVZMakP84Mu3j nRdpNw1pPPCtMAQ9YHXy lDTuF3KkmG7aNrYh GZAdSBThQ9AuvTHlIBqx H006PDnjSpL8OKWqagUg V8SaETTctWupUxS3n5N0 Ir7XLETbWJ29PGI4 wUI3US96EV75W3PwBwuh dGFibGU+PHRhYmxlIHdp ZHRoPScxMDAlJyBzdHls DQ0kBe7mSZHbSKPp fCasyMGaGeUhz6daMTNb AAhwQV3cePkhU9HtxEC2 KSRti9t6Ga17Z96aW4Lb dXA+GSVjmIN0fGO4 vL5fRlAeMaI8ARppZ332 UpKeaXSxHskgg5jcs7hp zSp2OhS4VQElkaBdlKho AUD2c8YkNe31P54g IHdpZHRoPSIxNSUiIHZh aUdwtg8twO0tSn5+PGNv qXX6cRG3pU8gBbMsFrX3 YVwfM612FvJcbOAr Onvch2jxw2ymxMz0IzZx EBCckgFjlFykNUG7r8Nq Hm37U9YjkKuqq8CrSkn1 hq47qCCmb3P4ySV8 E9YgJFYzoqlfoYJtnZzy VJ1hDTOdoamiYUAbhC8q WYMfO8n7BfShUkA0LNin A4OgefA9RJGucPUf MIcgYQG8Q59du1M8UAHv FGHmJHT5vQD5sY4giZav bjogbGVmdDsgdmVydGlj IOowVXzpI330ZJBt xJjsXFYraL4uTJYamAUt xSahCA2lHZQxqtfiGnAU Q6MXU68JCZVFZ5LOFxQu KZiTGR82S4MrChl0 AFMphAorHD2mmCHnJGpb Of3moUajeVmiPH1zULUv gpfzEOCfoV3xKWIdpVZv gSonVJ8rMCFtpnde u895LfBnYZA1YFZnsDUy C8TpnM0sBgSxPOJvVLUg Y1EzhXFnGLqpF813WHkv LiP3AOPeumTcJ6Au TWVnbXjhZfN7a6Q9Ek4z ZE8uSk1jIOT9BP53PH43 vTXhh0K9oQD6N1IaCPTr jmwhkfmmbDN2NNOp XWXkyY40sHHvLKxoIu1u w5R6u054TEVyDIHaqR55 Yd7tpUpwXLLevQVPrF1j thszm8mbuitwHzHw ZWPyHWf3DXw3UDVnrSpt XsFaMNH2BfQ9VHC2zNPa sT7vpQptpihlfR1tIym+ MHZnGKIlphL5N6Py Emm1XWBgxIczNN9fmMUk UAyfFc0cqNlhuQrmFM4q FNPiqtciMQQfkW6jRBUt wCEyuCivAD7qXAQu jsbyt368GqDpTXE4IBXc xFRyY5MljK2tVxHiFOXc YWNtQ6JasNHjYEaxN341 FSwxLxT7NBCszlEm E5CjPYSbdJvdFgZ7c8S0 Yo0UTFjUIL51LP33aKOm y3J9zWT3U4DpMZAambio zqkbnHP6TETlPRJe fR90qNFeAVemPg4al8B8 f242HPHoUUVgeV12Oq3o iJhiDCBqfRLGyD2sxnes k6vsvtkhPeChTBLi JUk8HYd0MBJbnLyuZtWs MIG0UwA1PVC4qHVhaU7z eUguajqtlD6mEnw+UmVj wNUhrV5rDE03zKEi qLrulpJ1Q2TuYhqecDY+ FX19IXSqXZ24eOWatNBn b5geaXf4EpUmTGUmVWI4 aWgjGIsde6DhLOBc V05deFXwn6U0DPBrlXjn wJNkRoIqvIQ5uW9lYKko qucsn3zdqusnCagyd4yw qw70qD79U43pQNaa ZHRoPSIzMCUiIHZhbGln gg0iwV2nCc2+PGNvbCB3 yIX1wD5eIrPjYhW0GXul T332VeCloZKyJmfx r5fbk9qauDj1IxRhPWIr ozTdvBbzZEC0b3VqQn27 C38pSRwaUQHrHXBlTIIl LYQueXmeos6cjM6h Ii8+QH9zh4lkin84mA79 dHI+DGVhLQQ9uCraUGck OFRojV9fZGxuNvO9ZGGp JqCzcK89fWKbDBbk Ik8wmLkfcMcjVS0iWGZo juwaz594XuCjj1pyFWRn cJPyXBzdOIY2Y62bb6V4 QZIkCJGsINU4vFY9 rI8krGxisbunhLRqiQpx poWzjIepVZpaVQzeN513 RIVjfFntRmHkaAOlD3tz awVSIR4eEgbtuCY+ TWUuLSS5wDrjTGmwSNRa bL0hKTHdN7x0JuQlLsC9 FSbkT8XwopW7ACCcmAQx LKCclKYZnM7zvnsz s7aqarpfPqGdUGYmPVt9 DJk0NZLfmGimXhEpJNE8 RyD4MWE4iBQtzH0exQjr vezwrO1vLlm+RklO OjwvdGQ+TADmIQR9bAzt NIysUPDdzI3fUDWwH8y8 QsYrFzZ7OBzxP0EeqrK1 IGJvbGQgMTBwdCBU kT5sacvez8ambjkfRlZi ERLoZRh7WEg1KGBvwTtc BjSxNUT9KcG4JJH0tYDk yV2rdFdytvuxbN3n Oyc+TVJOOjwvdGQ+PHRk ESS1fHegAZhuBDHcyS3x FSQxU5h7SnWmOmY0PEer Y4RmzqZ6UQNpxOLr ZULmsJXYwZ7kudboa3ao jqofUiSsLLElDSc8DYv7 IMGskLeaXxMrDPN8HyN5 HQT5tHLczW2yyQao tfxqrM7pShz+NXU8KHZ2 PL70PW83N3XoBjjulRVc bGU+PHRhYmxlIHdpZHRo PScxMDAlJyBzdHls ZT0 (more content not included)... [facility] Provider Orderson 05-17-2021 Provider Orders [id number] #[id number] [facility] Coding Summaryon 04-27-2021 Coding Summary HTMLBase 64 JflqpuntLDu7iGm+PGhl YWQ+VH5WOKRyK65nqDZi xY2CL9kTZQ1WDCNWLSFJ EI6ZBU8tnWG8JJnfW1Np biAv NxlgdDFpFJ67DCv3XZU6 yOjaSIoloN5toKCaR0z3 XzDrQG72oX26CZghMFNh BhJ7BbLhixnbiDHb C0itDuUjbIXfWwk+PHRh YmxlIHdpZHRoPScxMDAl AtUfrRlnUM1hTn2tWDEp LWNvbGxhcHNlOiBj g0plESPmMXpqBH5jpTnq V5OtaMA4HYQgn1j2Br87 dHI+TWVrEHP0hZgzNDhj h544TsQqu7maWCY1 vEZlFSqpDGA7F20tc8Q8 TPPpUOXyPUG5uPR5pI3d oXgzrjggQ4TuhXPfJdX5 DMR8yYWelG6bjTpu ijvnjJ3kWrz+Y70UTP3V AORFED5BTfw8N6YwVfgp dHI+DX59TPBeYV46cYUu wYNvc7ctoJl9ToHt SBUeCDM0wLxcBKvlk8Ah NVRyM16zrYVim3X5JKIi tSeubZPrRjSudWV1dB3a IRjyafjba0fuxfbf Mcuqp1ddqt90wP00P93b KDozCHUfNED1JFGnAYNn qVpaab0oqE7xHa3+IDxj u1ulw2lzzIg6WkQo TQFphrWukAniCZZ2q6Dg Je11Z1TqiGxho3SqFdc8 ai82iPBir7W3jZR1DVpu UUXnaY9sDKdyVdL4 MJUiOrTjhY37hMSgXUaw Qz1wrLaltBavTC9kMCJq huwsJESqhM0mNPVhhYOc fAzdEH0bJSHsaynd t647DeAiBYZ3RUPjjZBi F0RgsL5xLqSaUKNlMXAr L6XggDKwCRfpV262JPmw OcX5URIeucQsR8Bl SCGtxYoqWgU9u3V9Jd2Q e6RvgypdRUU0RFxsLKF3 XaX5TqOrDgO9D5MwYmn9 QMZzuPzgBG3dU3On HKKudfxxpeyewQN9SGGd EEDnsB91jOQgWLigXy0i n9C3k955UVYvNCChyH52 Ig2ngPnuSWOfgAYY uO0rmdqxf3dhzjvgShNz BFDdDGe9ZXu1ROXeuGpx HgSsQQH7CkQ5JTE1kCSq oM2yyKwqfbjpyA8i Oyc+A29bsV5yQNW3TNC3 zqfuRTRbtiJqJS36SQ17 B4ShSyavaDCqqPQ+PGRp ltQlbJobPL5uLnMl h3ywd6QkJNdrY7IoUMIv WKlbKxe7GCBbJQQ6lRG3 zK1fVNPgWMckl1H8dUS4 B8PhblLdtr2kv5ae DDVeMHqmP78tlSNwc6R2 YATerXS8QSSwlWvkFzLt iI65Utq+XLUajSkqb7Vh Uqsaf5stm2zarRc7 IjMwJSIgdmFsaWduPSJ0 k7NjXy36S84qVSzfXOWw ZMIuDEThIHBxyExezv3r tP2nRv4+PGNvbCB3 iCV4eY6vVKMjRiQ7APid Y976RrOqrUOwYpjny4jh v4iruTu8AoJyPMKmxkRm nRfiCVF5o0TkUx73 P89pIHucAMSlIHZlFKRn SYCifOzrxa4vpI5mVw0+ SL1ix3ujfx31lD15wCQ+ CEAaOON8wJfoTWrm JBWkhB5zHTolJyW9ASTk ZcMzeU10fZCzZZpgLs5x rOpjfTwdCM2aHYXmkjsj k703StQdo9kfSHFn kFPhGUehPHU7T33fq5G5 MVItAABoSLJ4qUU7pP7f bGlnbjogbGVmdDsgdmVy rUqxYBcfSEzwJ510 IHRvcDsnPlBhdGllbnQg OeAaZSf4A3KpKcb7HFFz vKevPZ0rfEKbCVgcQz9o pOpwsCofMG4iNBSz gueue045HwWvm3etIMHj tJEfBVxwCSP3C82ze3S7 ENPeODFiEIE4rNG2eW1c bGlnbjogbGVmdDsg uwNdrCbdINxmRAnrR926 IHRvcDsnPkJpcnRoIERh wKB4YM62ZR75vYTza1W4 aLB4T7OnCMXcbsrx aahsdPL0CXOjLQBzrA19 Vr4biVnhIw6kJRKyQWJ2 KSZxqQMsL1LpsI4mDpCb LNSaNUTnN3AgdPOu PIuxJ240ZGvmTlG9XRQi rzAsZ6UgWWWaiXdmCnC7 f3G5No2NG4W5NO27OR43 eZZrn5X7dPT2B9Bg MBZdncdajrbqnQO0KRGd JDBwmP30Qf9uoRyhKc1g QXWqWKJ1WIAiyWStH8Gk dM9fUvVtTTPfOPMb B6HwwSBgTEmqD392CYtq CzH5LZGnhgNqX9UjYZEq gOnaTnS2t9F0Gd7OGQe8 AM18ZH04tGCgb1S7 kSH2N0EkCDXxrwjsndyp cHV7LSUxMDTgdH16Jx0a oJxzFj6cNTOwFZI3FQNe gACaQ8VxbZ5bVlPn LWMxRXYdU8OlaGFhEErn J184IUkxRrH7KTMcqyAo B2JrJEXbpKfjEaD0x8S5 Mv0PKIKmUN41CUG6 pEA8AP01CN60C2LpUngs dGFibGU+PHRhYmxlIHdp ZHRoPScxMDAlJyBzdHls JI5gCq8oATWzHKEq bIdbaQYqTbYuj5wdDRJh XAoqMC6uuAekX6QdiGU2 FTNpc0l8Dn35A06uB4Ab dXA+ZGLpbZH6oPG2 gL1mWgBxUkU6DGccN291 WmJotYLtWofsr2hru9ai wGh6MgH0FZVlcwJmnLjm RVO9e2OsRm78V04w IHdpZHRoPSIxNSUiIHZh uJbvqp1aoB9wBg5+PGNv tYO8qYE8jE2mPzPtMoP3 WAaaY503JfJsaTBa Ffzad7mvn1nqoSs0MgSh QONtigQxgRebNLD6j0Ur Oh75B0QheLweg0McLdp0 qe45dUJqa0R5vEJ9 P4UwFWNswzfrcEXkhPfn OR1iJAQdwqrgBJPwkP0s LANqB4c9MwIrUvH6XWyz R0DejwZ5BJHxfAGb FVtzDQG8S20ix4L7XBOq WNEqNMK6tTC9aX9euZnr bjogbGVmdDsgdmVydGlj JPztWBszV618DDOy vJbvOLBltM7iEUHkrNTs fCxaIF8eBAHrvhfoZuHV C3UTI08ZCPSPO3CQCpNw QGnYZX94D6VnOph8 ZJQtjLkvJE2zrZHkNAtz Ky3xaQkssYvqII6iPIYy pirdTTJdyQ7sFDDzlCUh tDryBJ6tKDRvvszs j199XgScCSS6IOOfwPUx J1YgvX2iPfLoIMHdTNOh B8DhrORvYMvyM683IFhw VoK8RTQgmzCfY9Tp OJPveWapAuT3m7P3Bw7q AQ4zWb1yUJZ7BT42JC39 eFNhi8Q0mFD1L3KqNEHc bgimthtjbCB6XJPf RTOliV83cBThPJnuJl7b o6I4q204JGHpLYPovF76 Rt2zwQogLIIqxRQNpY6q jbgid2lnavycKrIk CCUgSWg5OOi0GKGchOyw EaTjJKB9CmH3WDQ6dMRg jV1pzKujxlempU3qMff+ AKOcYODyjhR6A6Bb Ygr9JCRaiVgeUO0brHAo TDdxZh8aiLbtbAfkHB9r PMBqeducXVOifP9cWQAl pAKycQlaUX7nGAUi zjcet212WyOrHUM1QGDj sSNfK9MavV6dUbXdWWIc XXWpG4KlaFXyXIpuA516 ROgnPjD5BBXalmDk K4EePWSxsCzxPxW6w0E7 Gx0TZWbIJS50GN32vCKb z4J8jJU8R1CjSIEglshg gygdfIK0BXVeGFPi kR04yLCbZAuuFb9op7M5 s245OYCjAZMcgN42Ee8w eTtfQYTggNCNrC4grkqo a5ujvudcIyEeMUHp FRi7BEh2FVPzkRbtQdSq BKG4JhG8QEZ1qOCgmG1i mQhpfqbflO6lVnh+T1A8 J9IsWugitNF+PC90 WOKcGO97oLOcsIOpc0ep kYz5NkKeIXEqLPN9uZwd IXkrt3YeWMJjD40dtDAo v7P7CFGzpHwtzHVx XkLzzKI4yY1hAVnykyws l8iibzbuLcwai5fotx17 yV17Y26vJMxdSXOeYIDg KMGlFLAnvTfqft4v sD5qIt6+FKAzqBI0qRW8 jU2wHjFcNxF3YWipL509 MtPlpAFmJbhqi6kpm6xp wUi8HkAnPLEfptGi qWvaMYX5q5UkHp56C84c IHdpZHRoPSIyMCUiIHZh fZsuxf3plH4nTh5+PC9j m5okqq29vY19dQB+ IMOwLZK5vMkjFIkiQVCb lP6zVFohWnB7HPQiNgXj nA40lWKwHLpgEy5xtOrb ePrvKX5jHPRxzvxz b426RhRwq2mbQYZuwLUh JTgnSBO7C83ex1N0FEAx NLWuAFS0iPI1gG9ufOgn bjogbGVmdDsgdmVy xKohHCchMUdrS528HAEu wRywJyGbzDZwW1krxzGK NE8xKhlqrSG+PHRkIHN0 gCkrZQugNZMtfH6v DFWrR6w1FtBiCiL8HLqf D3JzdcQ4IALvvFSlKUVl kMZRtK2hhyxcf3aipiri RxLvHDWoMLt3ARf9 FZGeyQroVhSjMGC4KpO2 SPY1lSVkaL7ofYionefb eW6rIse+RklOOjwvdGQ+ XTQxMBM4zVeqCOxe CMAukB2rANLeU7b3WzDz UmF9DPooA3LglcI0PCOo zOZmZVRwaLGRfA6yubju y8zofulwOuMlNPOp XGv4EWe7UHUlkYzuXvWb BQX5WgA5AGW0gFIwhY2n dIlfluvysG5fWrh+TVJO OjwvdGQ+PHRkIHN0 dItdJScdEBAbxU5uMCAa N0q3KsLiUgV8YItiZ0Jt svO0BDRwoSJyOSRsxWVO mR1oyzzsb7tfzxbr BbKiZMVvSSh0GIv5ZYQc bYzdDeRsXXG5DsU5HCI3 bQXjnR4tfZgbdyxikT7o Oyc+MME9GDB6CM86 UO66N3FaElplpUQinEB+ PHRhYmxlIHdpZHRoPScx NCLtArXwxLziAM9zOg7n ZGVyLWNvbGxhcHNl OiB (more content not included)... [facility] Coding Summaryon 04-06-2021 Coding Summary HTMLBase 64 UavjgeeyBIk3kPp+PGhl YWQ+OQ7GYMHkP36qnCRx uH2II6nRUQ2VFQHCFSVO TR9ZBM1qnBD6CNylP3At biAv IuhwcZDdWZ47JCq4PNC5 tYvqSYziyL1ddBAtD3t2 AbDjNT00dD67QSotJOTc RgS2WfFwszmffVSt X7pkAsYwsBEoBeu+PHRh YmxlIHdpZHRoPScxMDAl RgWbdFgwRY0kVk3nKYDf LWNvbGxhcHNlOiBj q4wqWLCkZUuvGA3xqOrn F2KopYL0XVPbd7u9Fl41 dHI+NCNvWPZ9gFzvBDyi o446HeFlf0pyNRC9 qDLaUPwsBUP1A94xn0F3 CYByMFHoJDP4uWS1pO6i hNckfdddS7VblXLgLsM0 QFT5wQRggH9hyEup yafrjA8kEfx+E88IKB8L VZEDBO7VYdv2K1KbJsrc dHI+OZ61YQAcHT73hXVr vOSzu7punZe4GgKq NBVhFMG1pClbQApyt7Sp XFDrQ80rsFKgq1Z9ZSGo cSaprYBuSnMsdTX6dJ8n CBbwwjxui8apupms Dzfmz1jckf45aY50D96w LLppIBPmHLP0VMZyAPQn oDpdtf7xhZ7xTl0+IDxj l9hfn8jskVa3GrVr JFVcwfYayHisIOO1n7Gn Uc09B2DncYxxd0QzXao7 xk99cLDfu1B4xRM8TVhn GEJulA8ySPslMmH7 BEDqAoZesH28wFJhYUmk To3zyUcatBqeXZ7rFSPm uliqYBEayU6xOGWawWWd mNrmKK2gZBSoisvq i875NoZzZDF3GYHikOLe Y1UwcE4cQiNfFRUrMMZc O1BuwVDpHIfcY065SVxr JmB8BOSkquYfB4Qq CCIdnNdrUzM0o0I4Rv0Z l2WtysaxCGN5KChjXLU7 YfI0CzMjCdF2N1KsCps3 ITOplEgqBQ3lX1Ri UIXmigxumccwhTP7CIRp NWCqiN01gXAqZFyqLy1e q8P6a367UBBxNDHaiK38 Ru0zbLgqLMAjqUSX aS3uifmkb2ethrzfLdLp ISPjJDs2TDf6USLcoUqf FpMlZEI9FjP4NRD9rTOb cC0qxVwqyqpqgK7s Oyc+X08pzG6mJYX4EAH7 shyjDVCzdkKpOO48TP63 P5DlLcgllFAkcWB+PGRp dvFfwZpdFQ6hZzFw b4xmq3GiTUhuG6CvVJZp FNgwGor7BDFgTQD7fWL7 oZ3uXQYwGVhog1C1iHG7 X9VpolChdq8pv5ki YQSnEIkoL77gxPKmw4I8 JOHhySB1MDSftVmkElNz cU51Kwp+JZOnoYqqv0Aw Fhhij2yir9lbzSn3 IjMwJSIgdmFsaWduPSJ0 v6YyCe89P63aMIrcTQDh DEVnNYIpOMVkuOexdz7g aG5kIm1+PGNvbCB3 wGL0zG4yLOSoXvI0ICks U377KuUdoCYeOprsh2vr m8lwtCj3SxAmXJWurwUc zYraLBF0h1AySj61 T16zHVvfCYUuIEThZHOr WPLnqAshvu1pwZ6gHl7+ KZ8jl9hhha74aB72lUX+ BIHtLMI0rXahETpz DMUknC4eYMtyExX9ZSLa LjWorR05jKDsTEvmQp5b sQgsqXzuQW0rCBMtdgxw s059PmZxg9roIXOr iSVpKJsrVPF3S17gl1P3 POKyTFVvACQ1sJR2xM2w bGlnbjogbGVmdDsgdmVy lRllGOzxZIpbI602 IHRvcDsnPlBhdGllbnQg BhGmASi5D1TvWpe0TOAv oCcrAC7crVIcXNtrPf5q dLuneXcqZO5cFVTa yndmz672JsWye3trRCFj mUYvVSqhEJB2Q10dm8H0 OKLoXIBcKCP1tQJ1hT6x bGlnbjogbGVmdDsg urEehFtnPWhxKTzaT140 IHRvcDsnPkJpcnRoIERh uKI3LJ75KC00iURid8U0 jLR8L1CaJLDyphxe jzhqxXF5DCQrPAXkcS43 Do4ntSdbXw5iUOGeRJW6 FEPehOEwR5EtiU9pUnHs TARkHYTnM1FvmGXv CSklJ521DXqvQnD1RQHh tjGtP7PiOZFalUcyQxL8 r6B8Mm0LD1Y4NY00HA98 gBEej5Z7nRK9C4Gh MAVcgummszwzpHS6UOUe QJCztD22Oj7ijNvwZs6m JJOeATG8BRQqjWMpL3Hx aT4pSbLyKLYjRLQr X6LcyKXiBPnkV897PUwz WiY6SAZscfLsY7IaVKIb lNegXvE4f4Y4Yn0CEAf5 IH29WX34lODwv4K7 fUQ2R6PfMGRevvbwmbaj wDD3MQFhYMRdhU16Rh7p uHluXm3wRWVzGJL9XBWx xRXhD5LcnU5gPiVc WSHkLNJfP4NvhMZqYDyc U213PCosWcN6HACrleQx F6SgGCEozBjhEfK9l6P7 Qh4WSLEiKW64TBI9 sMA9RF30NY12T3VuOdui dGFibGU+PHRhYmxlIHdp ZHRoPScxMDAlJyBzdHls QH4wJk7rHWYuIXHr dPkvqVDiEbZmm4ulLLMi TNydBF9nuNelS4BldNV9 YZWzo8c1Ul84L45iV4Eb dXA+JHSfnTY7kNW3 fH4vFtKyAxP9HQgpR092 WuDmhUTrQgrbj7xes8cl hLq9SxM8NREvayBcxVxd FEM4m6WvAk71Y63p IHdpZHRoPSIxNSUiIHZh wHfpiq9cjL1jXr4+PGNv bLN1jKB6fA5dNjCrXzR8 GEtdA945TlDgoXPh Xxxhx9kop6xjxEm3AdIz THCxxnAhaWebKJZ1e7Gl Hr51V5ZjdGgur5ReXie7 ir34yXNwg3U1hAL5 M9SmKSFnowjthORcdUjj ZX5bOTRiaaguXZIwhR2j FUEkT5v1CiTnHvE4GUzd U8YjdhL0HKEmyNJq QIixJSS3D91mx4H0CGRt GXTtUKX9oNH0jJ6ugUwn bjogbGVmdDsgdmVydGlj LPdtKVbkF137TLAi wRgqXYOmfA6uRHMrtNMr iXusVR1oMUGftynvCuOU X9PRO68JPGGFT9PIPkKw JWgAHE69V0MwKll7 XKJsyNyfLS4mtHBgUBrl Oz0vnVxvsAfiXW3rCCBk hwmsJHUjfU7bWIWeqURe hAaoMS2vIVQcjner d903NmCtAXA9ATPisYGu O3LxnJ0rHwPkNBIcUYAe A9KyfBIfCRarZ198GFog GeN5ZYGkxuPtK3Of KZUnnEuuNlY1d0I2Pu8y OM0qNy6hWWU3JD76VI82 xBOns3X1bBN3L9WqXSXz dmzeieaqyNE5HDFa PWBdhD60oZRmIRekYh6t w4P7f507KWFySRNmtM28 Te9esJdbVJJsxFRDhU2d rbvme7rkoaplOpTi APAnEPc2SQw3PSTpgNbv EvWwBPO7NdH2SXN9bWHr dQ1izPagzevjcE5cOer+ SFJqHQVgiyC5J0Hb Fmo8ZQHerOocQT8xaKYn KWqlVn1otFwavPjzHK3u FRGemwmzXVKgmA5bTQPh vJTiwBhfFC0dPMWc jedwb990BfUzYFN5HXBm xDIiH5BbqQ5rSaYjLJXu YKYqZ3QnmUKtZLygJ209 TOniWoK5WWFxwvRh Z5CgFIAsgQuaXuR6t2I2 Of6HTOgGQR01IP74gAPr a9M1nRH0T9YfZPMwocxe mcgkvAY2JGCcBFVb pM49nHQoFAukEr9ir2I7 m826QIZjLRRnkC84Yn0d nOkpYWDdbMEKvU0kfvin t6cvpypkGpJjEWNg QKz9ZKb5NMPmrKieKnVd RLU1LmA7JHN5oWHdzN9m cFmfbbcemE2mGvm+RW1l joakjyO1RQ94XF18 S5NvSruhpCMaqRN+PHRh YmxlIHdpZHRoPScxMDAl ZaXqrXcyIF8fYk8oHXOk LWNvbGxhcHNlOiBj j1zbYVMuJYqiEL4drOtg W5RkzYK4GEZle6u8Dv11 W76vN5UfhZD+PGNvbCB3 jHX3jR4zYgNhAsP2 FOlmN003PpHxsNQoYleo h2ldd5pobFn6DrCoQHPd tmUwxKpsOSC0m5QrPj44 M87pASahYKGhOWSz AUOyINJvrAgonx1luY9j Ii8+MHEpmUA3tHA8sC8i NwAqMyM7EQvtE875ArWb rWYrBmhoX32zU4Rf dXA+CLNbSor7JNEdvOip RL3dpUHzLOknNl7uIAL4 MyOtGcThYZrgX9WvZDAw jonpgjgbxTI1BSTh UAJmxA32Ib8dgRmhOl7r BPHyNLG2DWRoaVWmD2Zt qZ7cCqYnHOEoRSRyT3My yCZeMRxoM373AVwd RjP6BACmdcQoO1MtHEBk yVxvXsG4c4J7Pg3WiQfc gDWqYB3zIuQnIZx8D4Vh Usg8UPMzyMrdVW0v tRAnVNuuUu8edJqndFkz ST0wMWWymjwcn241SgBq p9ubUEMmwGDlMKzkCUU2 V54rg7Q4KQRtNHXc YQN0tQM4kK4ejMrhngfx bGVmdDsgdmVydGljYWwt KDleF347TXJrvBwcAxBD Bji6U4AqFcp3OIXf uBdjUK4ioMNeDRqgZj8m qJxolYmrMA7jCCRigqrg l747QrHfk6wvVXNpvXYf HKhjJZU2X29kf5K6 SDSrPQUcQJH6mXZ3bM5q bGlnbjogbGVmdDsgdmVy pXmnCIfoSDcrQ191OVDj eDptIw4VLtj1T3Lu Dsw4BLPywTlfCN3ipOGl GHoeSq1muMtdqZmtDM3t EXLfljofr229GdCry5gk IDEwcHQgVGltZXM7 P94rv8Q0EFErIJJrCAP3 mVC8eX7puSflmfzkfGOe dDsgdmVydGljYWwtYWxp C258MEHenUjjVlDc eWVyOjwvdGQ+XV26gn29 X4OhQrvzPkv0JDMvTBQ8 cBO4fC2eOAJaOEuny1S8 yOM7F9IgxpInam4k b2x (more content not included)... [facility] Coding Summary HTMLBase 64 DgslsmdwGTr6hJp+PGhl YWQ+IX7JYNVoM81mlUCk mW8XH1kXWQ7YDJMFURDY WD7HON3dlEX8SGfvI7Zg biAv KkvsgYWxCX31OXr9SUM3 dFekAPjjxG4lkDVdB4t4 KkTsCP36dQ80CTxyRFWk PzH2GqSvxdqkvQOz H6euNxByjGYsOhu+PHRh YmxlIHdpZHRoPScxMDAl ZeKsnLldGC5qOc4wADNw LWNvbGxhcHNlOiBj a0jzUZRsGEwfKX9mvEmf Z9MmmKW1RCNwe5l9Dw33 dHI+AHDmZCB2mLzcQOnl y888LbVea9dqNQS6 uZUsQKhtCEB3N92qa9P9 IAXtTJFmERB7uWZ1lJ0d kFvjvzzlO1XdjCBwRmN3 WXO3iMTryH4zgGlv tkwamJ3aAwa+W62UCZ6U NEETNX2VKij7S1MnZyhm dHI+XV25HWHmRE39yRDa rXXaa2hzoTw5EtXg DKHjMJS5yZrbYSdcm5Co LMVnA30rxFPrm2L3AOYw jWjwsURmCyVvsXD9qE3p VKhyrhqml5ryirob Qtcby5vnje24dH38J49a LHmfSGMjXYM9GBObXBNq nOekkk2pfB4bEd2+IDxj m1kac7kehFn2DwFl KIIivvBjaHvuWMU0x8Kf Al90H6GywMcra7GtQeb1 ds17bLNru4P6kDI9ERon IQBrvC1rBMeaWxZ2 WURbRpSyaK67bOWaLYol Li0fpWatiDoyMK6hCSNx tqwgSRPhpZ0lYDAdxDNn dQtgKR0hJFGtzxsd g607BpTqXJH1LAKrmWKd Q1MycW5gUsQwRROmKHGo K2MklROoRMysW294KJls MeW8SAOaauVqC3Kj CBGedNvhOkH0y8Z0Cb7D d4OwsgonRGQ1GAzeGHZ9 VkW2AkZrIpD1V9VrUja5 NXKgyEqrXM7dU4Zn DKHyyiposlquiXP9UYNe GTEsfD52sNLaJJjfPu4a u3L9v525KDBiNPRwvF32 Mu4kyQcsMBKzuWKL xR0pxnzdu2crlkoxUcJz UNXbEFa0KHl9WGJppSnz QwQgRHI5ZoI4KHB3yOYp vZ7ahWextrhlvL0q Oyc+P23tnX6wVPV4GMJ3 mnqdLUAjdrQoEA97WN07 H9RlFujsrVGbzIJ+PGRp mnKerIqySJ9fVlWn z0amj3YeAWnxI2KyTENb UZavUlo4HYXyLCU9pLH6 iW6dARMtDGffz8F8wFH6 A6YsvjNkyz0tj2ux PPTwWJzzB66onFKlg8J8 LPMloHH7YRPdsJhbXkEd aS14Ztf+NGSgrIteb0Ip Betlm5kit6farAc8 IjMwJSIgdmFsaWduPSJ0 o8OlWk56P04oRNomVMPn PUVrNDNbSJFtjBxnqa9o lT9zDo0+PGNvbCB3 rGF7eE3hNCCrTbN4GZvn C426SnClyPFrKjhet2wx h5lzkHc8YoDhCLHhfaUv lZhrLNQ2r7LoNq43 W78kURawDZOhVJHgYWHk OVNqeHprwi5osQ4xJx6+ TV2pq5cdjy74cJ75pNR+ QHDwVZO9cLywBSuq TMXceQ8oGHxpKrK8RUMw UaBybZ50pCDuKNvxCc0o bQqyjJunTI5bRCDvnugq r672QmArn8cnAVVe sWPySBrxMQZ4V08fw1E4 TNFnZFXxMCA3hWB2mV3n bGlnbjogbGVmdDsgdmVy xZzbTVdiBOorU977 IHRvcDsnPlBhdGllbnQg VlHgVAt4G5PoYhk5JSOg aEupXO7nnSWjZBonJf2t iGvseJydEK2wPNFr lsbhw569UzGfh0dwDSVi wWKnHKmxXIB7S94xs7H9 JDKxWYEtVHL7qUR0cR1d bGlnbjogbGVmdDsg ltCgjQdaMJaaOYbrH033 IHRvcDsnPkJpcnRoIERh zCH7AW20ZO42tZMcs7H7 tDM4G0BgFECgiquv ifrrcQG9VUYmBQMeeI13 Yj9lnTpfUs2oVIKgLOM4 IIFjmJIuE8MpzR9pIuIg IEJfKWQmY1YpsUXi DFxtF430PPfsDoR1PGVf fvCuO7AgZHFofUdxOlT2 k7F9Ft2SV3W2PX88XX80 bHRgy0D2gYL4W2Er ZYXyxyzldgbwdVI3PBLo CQSnfL04Fu3pvEyfXw1q EWLcYEG2BYHrtCWaX1Ng dX2iFoHgXWAbHACv R3ZczXIhNReyM292NJvu JmG3VBLjruNlX8TiRVFl oYvpUwS1x9K2Yd3XJOl3 CR66ZS58fLXtm7H4 dVU3C2SyNUDtxsigxnbu oEG4LMTjJXBshP54Xi6k lXoiAm3tYZUiLUB6DWZl lTVgJ4BvuE3uHsKn PRGnQGIrQ8LxcHEaTQzc G863RYojDxX5XFZzidEk D1DuTHLhuJqjAjT4d3X4 Ny1YMDKfKV05VQC5 eON8IT86PZ76Q6SvAffj dGFibGU+PHRhYmxlIHdp ZHRoPScxMDAlJyBzdHls UV8nIa0iGGWtZHDp fOpdjNVuSiThg2eoEJLn RQnnHT9geXbfW8RmeFB4 ORCqi5a8Sp78Y40eW3Yu dXA+WBPxjZE2sST6 xD4jXfDfRgN6EDlrE614 BwSwsSKbVlxhq2vib5qg nSl0TuB9RCJmpwDxjWyj BZP1b2EmTa46W37y IHdpZHRoPSIxNSUiIHZh wAbknw9rmR9sGi1+PGNv gEO9zLQ2nP6fXtWbXgU0 QXtkZ966ElKrxWYt Klltt3rlq2sgtMt5EfAl HMLstjXwvYtiDOF4q7Lr Xb08S2DklTinr5EbVbo3 zq74qUBix4U8gDC9 S3OlAWCevqxwkEGuuTtn RP8rBKRzxxylSBFvrD9l CDJgH6c5MjEfByL9QZun F1SwovY2IKZazMFx YTmfEWA4B70vk1M5JMWw GCKqXWV8lXX6gJ2chYex bjogbGVmdDsgdmVydGlj NPscAGuxE891YNYy hNorKERfpD8nFYFqgUDw zQtcKU7jMIBsseaeUlEW Z6XLW88FUJUCI8AHHyFg OPePIN55E9MrJvp4 QXNglYshIL3ajZDnYFcb Uy3olMprmHwrOK1sLUMz rfloXFHzkR5kQYZccSTb iCcaTU7yGZAgoaai r105BbToRMC2VPEjbYQs K5CnqT5mBjVuULIoNJZm R0MokJJrAKxlM749WWqf TqK2PPHqfrYuP6Lp JJVjiClmSqM8q7Y7Yh1g PF2mTj9aMDJ7RF18RP35 jDMmo7I9wFL8M8PhXXIj kqyubuvrfLJ6RCQh EHJoeI76gYHtRCgqIp4g m5D3l265DVSfUIWtgF52 Fi0zvMpjUCByvXALkH7c mzraw4tomenoPlFd SEHgBQj7TVz0QVKwgJvu JsZeCVG5ExM3TTB7sPPy hF4rlOklabrdnI1lXwl+ FLMcGNYvueY8A8Ql Ncx4ZREosJgvCP0ibAAn MSryOq2xqQebuKqlST5o GJAprrbmJDYxbO1dQRLv fPOlrBmwDE0zELAj dmaxi695ZgShXHF0ZLOo lRLjH2VonY3sPbIrRDGy DUNkJ5CcpIRcMEcfR628 TIwsLrE5VQElooNg G1MiUOWftPcuXgX5i4K8 Oo9HCIiTTU86FV29lCTu r4S0cPZ2G8DsOTEbpkfw cpspcUZ4XGQzMZFi kA20bQMuBCocLf3my3F8 x395ULSkKFFwzR11Bg2z sPoyUVDupBRYgZ9xpcae t9smaotyAlWnUCAx GDk0PXo6QXJxdEikXuXj APT1NhG0NZM8uHCdfH5o iOskrzjvhR5yKoh+RW1l enrroxQ3KP39JN11 B2GsJkawyTQriLP+PHRh YmxlIHdpZHRoPScxMDAl MmHhnCifKB0zBh2vNITv LWNvbGxhcHNlOiBj e0ygEEDkXYmvQB7ogCyg B0IouTY6VTPqz2f4Xb47 F10mX0TjyLT+PGNvbCB3 hHO4tZ7kBnBgSjS1 RKskV575TsWlcYZkAudh y8kxq8bhrEb1TfSdZPLi uvUymCkpUED6p6ZzNu86 Y24kBKqpPWAbDLTs SJErCTQdxSwoxb5deN6u Ii8+MTQsbKX4uBA3fY2z DpBpKgE7VVxpV271WqMx lOIgWgusY49gW7He dXA+CBApRvb6LCFjhHid VM8clWOqMFrkDf2sCBO5 PdEdAjRzQQllD0LsMTLt kttbdxewkRW9XDNj DRBfjG62Oq1mrWigSk2q QDQyHFW3HRIuoMTsO9Oq rH7mDvIyFGTbIBCdM7Ta pOTaJGxcL678OHko NxU8KZGzquNnY6CmAOOj uAaiPbF1r1M4Zz9VrNwl gHIxFF4zJnEqJSm5S1Yq Pge5AZAahJluMU4n dKExMBmuLu9rdPankLvk MF2vVJYqggjcb907JuNi t7veMPXshFFcTQbzRNV8 N86wo9F3CWPkVPBg DLG1fHV2tJ1sdYjteswy bGVmdDsgdmVydGljYWwt ZWpcY662RZKvcZshEuIT Isx7B7LmUri9YOGd iZecAN7xuUAfAKpxZx3n yUihhEqyHD3pBQGjxfnu n126KeFnq8qlMHTwiKGs JDqyUBB5Z09kx4L4 ARNnLMQjVHU0zNF9mV0o bGlnbjogbGVmdDsgdmVy mBtfUUroARcdE028QNRn vQhdVt4YStg9M0Ma Xcn7ZGGtrQltDV8krFRh IAomBa3bhLggcHggKW5q WOYmgvfap044VqMjx3yd IDEwcHQgVGltZXM7 E62ez9A3VBRxYJRvJHY0 bVR3mS7kbQdtjohiiCRt dDsgdmVydGljYWwtYWxp X364CYDkrRyoGgKc eWVyOjwvdGQ+MP93lo70 W1NvAuukVuc3WYSdPQY0 kUU4pJ9hKUMyJAcww9T3 fKO5J5VtsbWoam9f b2x (more content not included)... [facility] ED Clinical Summaryon 2020 ED Clinical Summary [facility] - Emergency Department [address] [place] [address] [id number] ED Clinical Summary PERSON INFORMATION Name: ROSA EASTMAN Age: 55 Years Sex: MALE : 1965 MRN: Acct#: Visit Reason: Hand pain-swelling; RIGHT WRIST PAIN Arrival: 04/01/2021 19:05:43 Discharge: 04/01/2021 19:35:00 LOS: 000 00:30 Check In: 04/01/2021 19:05:43 Checkout:04/01/2021 19:35:00 Address: [address] [address] PCP: Provider, None PROVIDER INFORMATION Provider Role Assigned Unassigned Miguelangel PUENTES, Kenisha YOON PA 04/01/2021 19:10:19 Shira RN, [facility] ED Nurse 04/01/2021 19:24:35 VITALS INFORMATION Vital Sign Triage Latest Temperature Tympanic Temperature Temporal Artery Pulse Rate 93 bpm 93 bpm O2 Sat 99 % 99 % Respiratory Rate 18 br/min 18 br/min Blood Pressure /94 mmHg /94 mmHg MEDICAL INFORMATION Medications Given: Allergy Information: penicillins; Bee Stings PHYSICIAN DOCUMENTATION DISCHARGE INFORMATION: Discharge Disposition: Home Discharge Location: Home PATIENT EDUCATION INFORMATION Instructions: Wrist Sprain, Adult; Wrist and Forearm Exercises-SportsMed; Cryotherapy Follow-Up: With: Address: When: Andrew Mckenzie DO [address] [place] [address] [id number] Within 3 to 5 days DIAGNOSIS: 1:Sprain of right wrist Patient Understands: Yes - Patient/family/careg iver verbalizes understanding of instructions given Comment: [facility] ED Patient Summaryon 021 ED Patient Summary [facility] - Emergency Department [address] [place] [address] [id number] PATIENT DISCHARGE INSTRUCTIONS Patient Information Name: ROSA EASTMAN Age: 55 Years Date of : 1965 [facility]: [id number] Reason For Visit: Hand pain-swelling; RIGHT WRIST PAIN Arrival Time: 04/01/2021 19:05:43 Primary Care Physician: Provider, None Attending Physician: Medhat Hernandez MD Comment: Visit Diagnosis: Diagnoses This Visit Hand pain-swelling ([id number]) Sprain of right wrist (S63.501A) Prescription Information: If you have been given a prescription for narcotics, seek immediate medical attention if you have any difficulty breathing or any sudden status changes such as confusion and sleepiness. If you or anyone you know is experiencing suicidal thoughts, mental health, alcohol and/or drug addiction problems; contact the [facility] 02/06 Crisis Hotline -Text 4HBOU vi 812416. If you received any narcotics, sedation, or any other medication that causes drowsiness for the next 24 hours, unless otherwise directed: ? Do not drive a car. ? Do not operate machinery such as power tools, lawn mowers, drills, sewing machines, or stoves ? Avoid alcoholic beverages and drugs for allergies, nerves, or sleep ? Do not make important personal or business decisions or sign any legal documents With: Address: When: Andrew Mckenzie DO [address] [place] [address] Within 3 to 5 days Medication Information: The exam and treatment you received today in the [facility] Emergency Department were for an urgent problem and are not intended as complete care. It is important for you to follow up with a doctor, nurse practitioner, or physician?s assistant hall director for ongoing care. If your symptoms become worse or you do not improve as expected and you are unable to reach your usual health care provider, you should return to the Emergency Department, we are available 24 hours a day. For those patients who have received Radiology results, the interpretation of your X-ray as given to you by our Emergency Department physician is only a preliminary report. The Radiologist will review your films and if there is a change in the diagnosis you will be notified by phone. Please make sure you have provided a working phone number so we can reach you if necessary. In the event that you had a lab culture while you were a patient in the Emergency Department, you will be notified by phone if there is a need to change your antibiotic. Please make sure you have provided a working phone number so we can reach you if necessary. [facility] Emergency Department has provided you with a complete list of medications post discharge. Please inform your primary health organisation manager/provider of your visit and for further instruction on these medications. Any specific questions regarding your chronic medications and dosages should be discussed with your primary care physician(s) and/or pharmacist. Medications to Continue That Have Not Changed Other Medications acetaminophen-hydroc odone (hydrocodone-acetami nophen 5 mg-325 mg ([place] 5)) 1 tab(s) Oral Every 6 hours as needed as needed for pain. latanoprost ophthalmic (latanoprost 0.005% ophthalmic solution) 1 Drops Ophthalmic once a day (at bedtime). both eyes. Visit Information Allergies: Substance Reaction Symptoms Type Comments Bee Stings Drug penicillins Drug Vital Signs: Vitals and Measurements this Visit (last charted value for your 04/01/2021 visit) Vital Signs This Visit Temperature Oral: 36.8 DegC Peripheral Pulse Rate: 93 bpm Respiratory Rate: 18 br/min Systolic Blood Pressure: 146 mmHg Diastolic Blood Pressure: 94 mmHg SpO2: 99 % Oxygen Therapy: Room air Measurements This Visit Height/Length Dosin.700 cm Height/Length Estimated: 172.700 cm Weight Dosin.100 kg Weight Estimated: 94.100 kg Problems List: Problem Onset Comments Glaucoma Sleep apnea in adult Uses CPAP Smoker Patient Education Wrist Sprain, Adult A wrist sprain is a stretch or tear in the strong, fibrous tissues (ligaments) that connect your wrist bones. There are three types of wrist sprains: ? Grade 1. In this type of sprain, the ligament is stretched more than normal. ? Grade 2. In this type of sprain, the ligament is partially torn. You may be able to move your wrist, but not very much. ? Grade 3. In this type of sprain, the ligament or muscle is completely torn. You may find it difficult or extremely painful to move your wrist even a little. What are the causes? A wrist sprain can be caused by using the wrist too much during sports, exercise, or at work. It can also happen with a fall or during an accident. What increases the risk? This condition is more likely to occur in people: ? With a previous wrist or arm injury. ? With poor (more content not included)... Normal [facility] Vital Signs Date Time Vital Sign Value Performing Clinician Facility 02-20-2023 14:00-0400 Body height 172.72 cm Josué Evangelista Other [facility] Other 02-20-2023 14:00-0400 Body mass index (BMI) [Ratio] 32.08 kg/m2 Josué Evangelista Other [facility] Other 02-20-2023 14:00-0400 Body weight 95.71 kg Josué Evangelista Other [facility] Other 02-20-2023 14:00-0400 Diastolic blood pressure 80 mm[Hg] Josué Evangelista Other [facility] Other 02-20-2023 14:00-0400 Systolic blood pressure 130 mm[Hg] Josué Evangelista Other [facility] Other 01-22-2023 09:40-0400 Diastolic blood pressure 84 mm[Hg] DO Britt Rumschlag Work Phone: [facility] 01-22-2023 09:40-0400 Heart rate 70 /min DO Britt Rumschlag Work Phone: [facility] 01-22-2023 09:40-0400 Respiratory rate 16 /min DO Britt Rumschlag Work Phone: [facility] 01-22-2023 09:40-0400 SaO2% (BldA) [Mass fraction] 96 % DO Britt Rumschlag Work Phone: [facility] 01-22-2023 09:40-0400 Systolic blood pressure 136 mm[Hg] DO Britt Rumschlag Work Phone: [facility] 01-22-2023 08:47-0400 Body temperature 98 [degF] DO Britt Rumschlag Work Phone: [facility] 01-22-2023 08:12-0400 Inhaled oxygen flow rate 10 L/min DO Britt Rumschlag Work Phone: [facility] 01-22-2023 07:35-0400 Body height 172.72 cm DO Britt Rumschlag Work Phone: [facility] 01-22-2023 07:35-0400 Body mass index (BMI) [Ratio] 32.4 kg/m2 DO Britt Rumschlag Work Phone: [facility] 01-22-2023 07:35-0400 Body weight 96.8 kg DO Britt Rumschlag Work Phone: [facility] 03-13-2022 11:45-0400 Body height 172.72 cm Harvey Holt Other [facility] Other 03-13-2022 11:45-0400 Body mass index (BMI) [Ratio] 32.23 kg/m2 Harvey Holt Other [facility] Other 03-13-2022 11:45-0400 Body weight 96.16 kg Harvey Holt Other [facility] Other 01-14-2022 14:30-0500 Body height 172.72 cm Harvey Holt Other [facility] Other 01-14-2022 14:30-0500 Body mass index (BMI) [Ratio] 32.23 kg/m2 Harvey Holt Other [facility] Other 01-14-2022 14:30-0500 Body weight 96.16 kg Harvey Salcidocamilo Other [facility] Other 09-19-2021 11:00-0500 Body height 172.72 cm Harvey Salcidocamilo Other [facility] Other 09-19-2021 11:00-0500 Body mass index (BMI) [Ratio] 32.23 kg/m2 Harvey Elscamilo Other [facility] Other 09-19-2021 11:00-0500 Body weight 96.16 kg Harvey Salcidocamilo Other [facility] Other 09-19-2021 11:00-0500 Diastolic blood pressure 87 mm[Hg] Harvey Salcidocamilo Other [facility] Other 09-19-2021 11:00-0500 Systolic blood pressure 130 mm[Hg] Harvey Salcidocamilo Other [facility] Other Encounters Encounter Date Encounter Type Care Provider Facility Start: 10-15-2023 End: 10-15-[address] [facility] Start: 10-14-2023 End: 10-15-2023 ambulatory BRITT PENALOZA [facility] Start: 03-04-2023 End: 03-05-[address] DOCTOR GARCIA Facility: Start: 02-28-2023 End: 02-28-2023 ambulatory Josué Evangelista Other [facility] Other Start: 02-28-2023 Telephone encounter Josué Evangelista [facility] Start: 02-20-2023 End: 02-20-2023 ambulatory Josué Evangelista Other [facility] Other Start: 02-20-2023 Postop follow up vis it related to original px Josué Evangelista [facility] Start: 01-22-2023 End: 01-22-2023 Admission to same day surgery center DO Britt Rumschlag Work Phone: [facility] [place] Start: 01-22-2023 End: 01-22-2023 ambulatory Josué E César Facility:[facility] Start: 01-22-2023 End: 01-22-2023 ambulatory DO Britt Rumschlag Work Phone: [facility] Work Phone: Start: 01-13-2023 End: 01-13-2023 ambulatory Josué Evangelista Facility:[facility] Start: 01-13-2023 End: 01-13-2023 ambulatory DO Britt Rumschlag Work Phone: [facility] Work Phone: Start: 01-13-2023 End: 01-13-2023 Patient encounter procedure DO Britt Rumschlag Work Phone: [facility] Work Phone: Start: 12-06-2022 End: 12-06-2022 ambulatory Josué Evangelista Facility:[facility] Start: 12-06-2022 End: 12-06-2022 Patient encounter procedure DO Britt Rumschlag Work Phone: [facility] [place] Work Phone: Start: 08-10-2022 End: 08-10-2022 ambulatory [facility] Facility: Start: 07-08-2022 End: 07-08-2022 ambulatory Candida Hinkle Facility:[facility] Start: 07-08-2022 End: 07-08-2022 Patient encounter procedure [facility] [address] Start: 06-21-2022 End: 06-21-2022 ambulatory Candida Hinkle Facility:[facility] Start: 06-21-2022 End: 06-21-2022 Patient encounter procedure [facility] [address] Start: 03-13-2022 End: 03-13-2022 ambulatory Harvey Holt Other [facility] Other Start: 03-13-2022 Office outpatient visit 15 minutes Harvey Holt [facility] Start: 01-14-2022 End: 01-14-2022 ambulatory Harvey Holt Other [place] [facility] Other Start: 01-14-2022 Office outpatient visit 15 minutes Harvey Holt [facility] Start: 10-16-2021 [facility] Harvey Elscamilo [facility] Start: 10-16-2021 End: 10-16-2021 ambulatory Harvey Holt Other [facility] Other Start: 09-19-2021 End: 09-19-2021 ambulatory Harvey Holt Other [facility] Other Start: 09-19-2021 Office outpatient ne w 45 minutes Harvey Holt [facility] Procedures Date Procedure Procedure Detail Performing Clinician Start: 01-22-2023 Decompression of uln ar nerve DO Britt Rumschlag Work Phone: Start: 12-06-2022 X-ray of cervical spine DO Britt Rumschlag Work Phone: Start: 07-08-2022 MRI of head Plan of Treatment Date Care Activity Detail Author Start: 01-22-2023 End: 01-22-2023 [facility] Start: 07-08-2022 MRI of head MR head/brain wo con [facility] Start: 07-08-2022 End: 07-08-2022 Patient encounter procedure Departed Clinical [facility] [address] Patient referral [facility] Work Phone: Immunizations Immunization Date Immunization Notes Care Provider Augustus villanueva 03-07-2021 COVID-19 mRNA, Comir philip (Pfizer) [facility] 02-14-2021 COVID-19 mRNA, Comir philip (Pfizer) [facility] Payers Date Payer Category Payer Medicaid [id number] 2022 Self-pay [id number] 1965 Unknown [id number] 2.16.84 [id number] 1965 Unknown [id number] 2.16.84 [id number] 1965 Unknown [id number] 2.16.8 [id number] 1965 Unknown [id number] 2.16.8 [id number] 1965 Unknown [id number] 2.16.8 [id number] 1957 Unknown [id number] 2.1 [id number] Unknown [id number] 2.1 [id number] Unknown [id number] 2.16.8 [id number] Unknown [id number] 2.16.8 [id number] Unknown [id number] 2.16.8 [id number] Unknown [id number] 2.16.8 [id number] Unknown [id number] 2.16.8 [id number] Social History Date Type Detail Facility Sex Assigned At [facility] Other Start: 10-16-2021 End: 01-22-2023 Tobacco smoking status DEIS Smoker (finding) [facility] Start: 1965 Sex Assigned At Male F [facility] Medical Equipment Procedure Code Equipment Code Equipment Origin al Text Equipment Identifier Dates BONE 7MM DUO FORTITUDE SERIES FDA Start: 10-16-2021 Spinal fixation plate, non-bioabsorbable ()[id number] FDA Start: 10-16-2021 Bone-screw inter nal spinal fixation system, non-sterile ()[id number] FDA Start: 10-16-2021 Bone-screw inter nal spinal fixation system, non-sterile ()[id number] FDA Start: 10-16-2021 BONE 7MM DUO FORTITUDE SERIES FDA Start: 10-16-2021 BONE 7MM DUO FORTITUDE SERIES FDA Start: 10-16-2021 BONE 7MM DUO FORTITUDE SERIES FDA Start: 10-16-2021 Goals Date Patient Goal Desired Activity /State Clinical Notes 04-01-2021 to 02-20-2023 Note Date & Type Note Facility 02-20-2023 Evaluation note Encounter Date Diagnosis Assessment Notes Feb, 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 I will see him on an as-needed basis I think he has had a good outcome overall. 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 March, Herniated cervical disc (ICD-10 - M50.20) Patient is continue to do well from his neck operation. March, Cervical spondylosis with myelopathy (ICD-10 - M47.12) [facility] Other 03-29-2022 NoteEducation Materials Neurology Paresthesia Paresthesia is an abnormal burning or prickling sensation. It is usually felt in the hands, arms, legs, or feet. However, it may occur in any part of the body. Usually, paresthesia is not painful. Itmay feel like: ? Tingling or numbness. ? Buzzing. ? Itching. Paresthesia may occur without any clear cause, or it may be caused by: ? Breathing too quickly (hyperventilation). ? Pressure on a nerve. ? An underlying medical condition. ? Side effects of a medication. ? Nutritional deficiencies. ? Exposure to toxic chemicals. Most people experience temporary (transient) paresthesia at some time in their lives. For some people, it may be long-lasting (chronic) because of an underlying medical condition. If you have paresthesia that lasts a long time, you may need to be evaluated by your health care provider. Follow these instructions at home: Alcohol use ? Do not drink alcohol if: ? Your health care provider tells you not to drink. ? You are , may be , or are planning to become . ? If you drink alcohol: ? Limit how much you use to: ? 0?1 drink a day for women. ? 0?2 drinks a day for men. ? Be aware of how much alcohol is in your drink. In the [place] one drink equals one 12 oz bottle of beer (355 mL), one 5 oz glass of wine (148 mL), or one 1? oz glass of hard liquor (44 mL). Nutrition ? Eat a healthy diet. This includes: ? Eating foods that are high in fiber, such as fresh fruits and vegetables, whole grains, and beans. ? Limiting foods that are high in fat and processed sugars, such as fried or sweet foods. General instructions ? Take kyjr-mir-wjdjgzl and prescription medicines only as told by your health care provider. ? Do not use any products that contain nicotine or tobacco, such as cigarettes and e-cigarettes. These can keep blood from reaching damaged nerves. If you need help quitting, ask your health care provider. ? If you have diabetes, work closely with your health care provider to keep your blood sugar under control. ? If you have numbness in your feet: ? Check every day for signs of injury or infection. Watch for redness, warmth, and swelling. ? Wear padded socks and comfortable shoes. These help protect your feet. ? Keep all follow-up visits as told by your health care provider. This is important. Contact a health care provider if you: ? Have paresthesia that gets worse or does not go away. ? Have a burning or prickling feeling that gets worse when you walk. ? Have pain, cramps, or dizziness. ? Develop a rash. Get help right away if you: ? Feel weak. ? Have trouble walking or moving. ? Have problems with speech, understanding, or vision. ? Feel confused. ? Cannot control your bladder or bowel movements. ? Have numbness after an injury. ? Develop new weakness in an arm or leg. ? Faint. Summary ? Paresthesia is an abnormal burning or prickling sensation that is usually felt in the hands, arms, legs, or feet. It may also occur in other parts of the body. ? Paresthesia may occur without any clear cause, or it may be caused by breathing too quickly (hyperventilation), pressure on a nerve, an underlying medical condition, side effects of a medication, nutritional deficiencies, or exposure to toxic chemicals. ? If you have paresthesia that lasts a long time, you may need to be evaluated by your health care provider. This information is not intended to replace advice given to you by your health care provider. Make sure you discuss any questions you have with your health care provider. Document Revised: 11/22/2019 Document Reviewed: 11/05/2018 [employer] Patient Education ? 2020 [employer] Orthopedics Cubital Tunnel Syndrome Cubital tunnel syndrome is a condition that causes pain and weakness of the forearm and hand. It happens when one of the nerves that runs along the inside of the elbow joint (ulnar nerve) becomes irritated. This condition is usually caused by repeated arm motions that are done during sports or work-related activities. What are the causes? This condition may be caused by: ? Increased pressure on the ulnar nerve at the elbow, arm, or forearm. This can result from: ? Irritation caused by repeated elbow bending. ? Poorly healed elbow fractures. ? Tumors in the elbow. These are usually noncancerous (benign). ? Scar tissue that develops in the elbow after an injury. ? Bony growths (spurs) near the ulnar nerve. ? Stretching of the nerve due to loose elbow ligaments. ? Trauma to the nerve at the elbow. What increases the risk? The following factors may make you more likely to develop this condition: ? Doing manual labor that requires frequent bending of the elbow. ? Playing sports that include repeated or strenuous throwing motions, such as baseball. ? 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 A referral for RUE EMG will be sent Jan, Cervical spondylosis with myelopathy (ICD-10 - M47.12) Patient is released from routine follow-up for his neck we will see him on an as-needed basis. [facility] Other 11-10-2021 Evaluation note* Encounter Date Diagnosis Assessment Notes Treatment Notes Treatment Clinical Notes Sep, Cervical spondylosis with myelopathy (ICD-10 - M47.12) With the progression of the patient's symptoms, how it has affected his dizziness , was more spastic and difficulty with his gait, I believe he needs to be considered for surgical intervention on a more urgent basis. I believe he is a candidate for an anterior cervical discectomy and fusion at C3-4. I do not believe given the degree of compression and signal change in his cord that he is a candidate for an artificial disc. The patient is a little simple in terms of his processing, and he is accompanied today by his nephew, so I really spent a very significant amount of time explaining things to him. I reviewed imaging face to face and discussed treatment options and risks and benefits of surgery. They understand and would like to proceed [facility] Other 09-27-2021 Note [id number]05-23-2021 NoteEducation Materials Orthopedics Wrist Sprain, Adult A wrist sprain is a stretch or tear in the strong, fibrous tissues (ligaments) that connect your wrist bones. There are three types of wrist sprains: ? Grade 1. In this type of sprain, the ligament is stretched more than normal. ? Grade 2. In this type of sprain, the ligament is partially torn. You may be able to move your wrist, but not very much. ? Grade 3. In this type of sprain, the ligament or muscle is completely torn. You may find it difficult or extremely painful to move your wrist even a little. What are the causes? A wrist sprain can be caused by using the wrist too much during sports, exercise, or at work. It can also happen with a fall or during an accident. What increases the risk? This condition is more likely to occur in people: ? With a previous wrist or arm injury. ? With poor wrist strength and flexibility. ? Who play contact sports, such as football or soccer. ? Who play sports that may result in a fall, such as skateboarding, biking, skiing, or snowboarding. ? Who do not exercise regularly. ? Who use exercise equipment that does not fit well. What are the signs or symptoms? Symptoms of this condition include: ? Pain in the wrist, arm, or hand. ? Swelling or bruised skin near the wrist, hand, or arm. The skin may look yellow or kind of blue. ? Stiffness or trouble moving the hand. ? Hearing a pop or feeling a tear at the time of the injury. ? A warm feeling in the skin around the wrist. How is this diagnosed? This condition is diagnosed with a physical exam. Sometimes an X-ray is taken to make sure a bone did not break. If your health care provider thinks that you tore a ligament, he or she may order an MRI of your wrist. How is this treated? This condition is treated by resting and applying ice to your wrist. Additional treatment may include: ? Medicine for pain and inflammation. ? A splint to keep your wrist still (immobilized). ? Exercises to strengthen and stretch your wrist. ? Surgery. This may be done if the ligament is completely torn. Follow these instructions at home: If you have a splint: ? Do not put pressure on any part of the splint until it is fully hardened. This may take several hours. ? Wear the splint as told by your health care provider. Remove it only as told by your health care provider. ? Loosen the splint if your fingers tingle, become numb, or turn cold and blue. ? If your splint is not waterproof: ? Do not let it get wet. ? Cover it with a watertight covering when you take a bath or a shower. ? Keep the splint clean. Managing pain, stiffness, and swelling ? If directed, put ice on the injured area. ? If you have a removable splint, remove it as told by your health care provider. ? Put ice in a plastic bag. ? Place a towel between your skin and the bag or between the splint and the bag. ? Leave the ice on for 20 minutes, 2?3 times per day. ? Move your fingers often to avoid stiffness and to lessen swelling. ? Raise (elevate) the injured area above the level of your heart while you are sitting or lying down. Activity ? Rest your wrist. Do not do things that cause pain. ? Return to your normal activities as told by your health care provider. Ask your health care provider what activities are safe for you. ? Do exercises as told by your health care provider. General instructions ? Take [id number] and prescription medicines only as told by your health care provider. ? Do not use any products that contain nicotine or tobacco, such as cigarettes and e-cigarettes. These can delay healing. If you need help quitting, ask your health care provider. ? Ask your health care provider when it is safe to drive if you have a splint. ? Keep all follow-up visits as told by your health care provider. This is important. Contact a health care provider if: ? Your pain, bruising, or swelling gets worse. ? Your skin becomes red, gets a rash, or has open sores. ? Your pain does not get better or it gets worse. Get help right away if: ? You have a new or sudden sharp pain in the hand, arm, or wrist. ? You have tingling or numbness in your hand. ? Your fingers turn white, very red, or cold and blue. ? You cannot move your fingers. This information is not intended to replace advice given to you by your health care provider. Make sure you discuss any questions you have with your health care provider. Document Revised: 10/09/2018 Document Reviewed: 05/15/2017 [employer] Patient Education ? 2019 [employer] Wrist and Forearm Exercises Ask your health care provider which exercises are safe for you. Do exercises exactly as told by your health care provider and adjust them as directed. It is normal to feel mild stretching, pulling, tightness, or discomfort as you do these exercises. Stop right away if you feel sudden pain or your (more content not included)...[facility] noteNo InformationNortLif[facility] Other evaluation noteNo assessment information available [facility] Work Phone: History general Narrative - Reported* Type Description Date Surgical History (R) carpal tunnel release Surgical History (R) Ulnar nerve release Surgical History tonsillectomy Hospitalization History See [facility] Other Hospital Discharge instructions Additional Instructions Use sling for right arm as needed No lifting more than 20 pounds Do not submerge wound When showering put plastic bag over extremity for 2 days then may shower as needed without covering wound Ice to affected area for swelling and discomfort Keep right arm elevated is much as possible Any unusual redness or drainage [facility] Work Phone: Summary Purpose Family History No Family History Records Found Relationship Condition Age at Onset Recorded Date/T fabio Not Specified Diabetes mellitus Unknown Heart failure Unknown Chronic obstructive pulmonary disease Unk nown father Heart failure Unknown Renal failure Unknown Myocardial infarction Unknown brother Borderline diabetes mellitus Unknown Relationship Condition Age at Onset Recorded Date/T fabio Not Specified Heart failure Unknown Chronic obstructive pulmonary disease Unk nown father Myocardial infarction Unknown Renal failure Unknown Diabetes mellitus Unknown brother Borderline diabetes mellitus Unknown Advance Directives No Advanced Directives Records Found Advance Directive Response Recorded Date/ Time Advance Directives No September 11:09am Advance Directive Response Recorded Date/ Time Advance Directives No September 10:09am Reason for Referral Reason RUE EMG/NCV-to be co mpleted by Dr Singer, as patient had prev with Dr Singer in past Thank you Diagnosis 1 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) Referral Organization [facility] Ne urosurgery Referring Provider First Name Harvey Referring Provider Last Name Yanet Referring Provider Specialty Neurosurger y Referred Organization [facility] Referred Provider Jonn Singer Referred Address [address] [place], [place],[address] Referred Provider Specialty Neurology Referral Priority Routine Chief Complaint and Reason for Visit Chief Complaint labs r41.3 Chief Complaint m47.12 entrapment ulnar nerve Chief Complaint m47.12 entrapment ulnar nerve entrapment ulnar nerve Additional Source Comments (unrecognized sect ion and content) No Status Records FoundNo Status Records FoundNo Status Records FoundNo Status Records Found INFORMATION SOURCE (unrecogn ized section and content) DATE CREATED AUTHOR 02/16/2022 [facility] DATE CREATED AUTHOR AUTHOR'S ORGANIZ ATION 01/23/2023 [facility] DATE CREATED AUTHOR AUTHOR'S ORGANIZ ATION 03/08/2023 [facility] DATE CREATED AUTHOR AUTHOR'S ORGANIZ ATION 10/18/2023 [facility] REASON FOR VISIT (unrecogniz ed section and content) Referred Dr. Mckenzie Cerv ical Discacdf C3-43 months po ACDFEMG RESULTSright ulnar nerve release4 wk po/ Right ulnar nerve/ [id number] Care Teams (unrecognized sec tion and content) Team Status: Inactive Member Role Status Dates Candida Alexander PA-C Attending Provider Active Britt Penaloza , Primary Care Provider Active Team Status: Inactive Member Role Status Dates NON STAFF Primary Care Provider Active Candida Alexander PA-C Attending Provider Active Team Status: Active Member Role Status Dates Britt Penaloza , Primary Care Provider Active Team Status: Inactive Member Role Status Dates Britt Penaloza , DO Primary Care Provider Active Josué Evangelista MD Attending Provider Active Goals (unrecognized section and content) Goals may be documented in a n alternate section FOR RECORDS PERTAINING TO PATIENTS WHO ARE OR HAVE BEEN ENROLLED IN A CHEMICAL DEPENDENCY/SUBSTANCEABUSE PROGRAM, SOME INFORMATION MAY BE OMITTED. This clinical summary was aggregated from multiple sources. Caution should be exercised in using it in the provision of clinical care. This summary normalizes information from multiple sources, and as a consequence, information in this document may materially change the coding, format and clinical context of patient data. In addition, data may be omitted in some cases. CLINICAL DECISIONS SHOULD BE BASED ON THE PRIMARY CLINICAL RECORDS. [facility] [employer] [facility]. provides no warranty or guarantee of the accuracy or completeness of information in this document.
--- NOTE | 2023-12-08 12:47 | P.CN_ITS ---
Consult Note: HPI Data of Consult Patient: new to practice Consult date: 12/08/23 Requesting Physician: Richard Lezama MD Primary Care Provider: Britt Goodman Consult Narrative Reason for consult: Low back, bilateral lower extremity pain, R>L Narrative: 58yom who presents for evaluation. Years of low back and bilateral lower extremity pain, R>L. Worsening in past several months. Has engaged in >6 weeks of provider directed home exercise program, with minimal benefit. Has utilized muscle relaxant, with some benefit. Imaging reviewed, which shows multilevel degenerative changes in lower spine and sacrum. There is multilevel stenosis noted, worse in L4-5 and L5-S1. Denies adverse med side effects or loss of bowel and bladder control. cc:: CC: Richard Lezama MD Review of Systems ROS Status of ROS 10 or more systems reviewed and unremark able except as noted in history and below Meds Home Medications and Allergies Home Medications Medication Instructions Recorded Confirmed Type epinephrine 0.3 mg/0.3 mL 0.3 mg IM DAILY PRN anaphylaxis 08/30/23 12/08/23 History injection, auto-injector latanoprost 0.005 % eye drops 1 drp ophthalmic (eye) .QHS 08/30/23 12/08/23 History omeprazole 40 mg capsule,delayed 40 mg PO QAM 08/30/23 12/08/23 History release rosuvastatin 5 mg tablet 5 mg PO DAILY 08/30/23 12/08/23 History cyclobenzaprine 5 mg tablet 5 mg PO DAILY 12/08/23 12/08/23 History gabapentin 100 mg capsule 200 mg PO DAILY 12/08/23 12/08/23 History Allergies Allergy/AdvReac Type Severity Reaction Status Date / Time bee venom protein (honey bee) Allergy Severe Verified 08/30/23 19:26 Penicillins Allergy Severe Verified 08/30/23 19:26 Exam Narrative Exam Narrative: Psych-alert and oriented x 3. Attentive and appropriate, constitutionally normal, displays normal mood and affect per situation. There are no obvious deficits in memory, reasoning, or intellect.? Skin-no obvious rashes, bruising, erythema noted to the patient's area of pain.? Extremities- extremities are warm with minimal edema and palpable pulses. Lumbar-tenderness to palpation noted in the lumbar spine and paraspinal mus culature. Pain is elicited with flexion, extension, and lateral rotation of the lumbar spine. Range of motion is diminished with these motions. Facet loading maneuvers are positive.? Strength-noted to be unremarkable with the exception of decreased strength rated at 4 out of 5 in bilateral quadriceps femoris, anterior tibialis. Sensory-no notable sensory deficits in the bilateral lower extremities to touch or pinprick in all dermatomal distributions with the exception to decreased sensation to the bilateral L4, 5 dermatomal distribution. Sacroiliac - tenderness to bilateral PSIS. Positive thigh thrust bilaterally. Positive Reid's bilaterally. Coordination remains intact.? Gait remains non-antalgic. Assessment and Plan Assessment and Plan (1) Lumbar stenosis with neurogenic claudication: (2) Lumbar spondylosis: (3) Sacroiliac joint dysfunction of both sides: Plan 58yom who presents for evaluation. Failed conservative measures, as noted. Imaging reviewed, as noted. Given symptoms and imaging, prudent to attempt bilateral L5-S1 transforaminal epidural steroid injection under fluoroscopic guidance. He is in agreement. May even benefit from bilateral sacroiliac joint injection. He is in agreement. Medications reviewed, no changes. Follow up after procedure.
== END 2023-12-08 11:37 | disposition home or self-care (01) ==
LOC: PM 11:37
PROVIDERS: PCP Family Medicine; Visit Provider Anesthesiology
DX: M48.062 Spinal stenosis, lumbar region with neurogenic claudication (principal); M47.816 Spondylosis without myelopathy or radiculopathy, lumbar region; M53.3 Sacrococcygeal disorders, not elsewhere classified
CPT/HCPCS: G0463

== ENCOUNTER 2023-12-22 08:55 | Day surgery (SDC) | payer MEDICAID, SELFPAY ==
--- OUTSIDE RECORDS SUMMARY | 2023-12-22 08:59 | XMS_ITS | CCD ---
Author Name Unknown Address [address] [place] [address] Organization [facility] Care Team Providers Care Clinical Reimbursement Specialist Name Role Phone Harvey Holt Unavailable NON STAFF Primary Care Provider UnavailDAPHNEY Sotelo Attending Provider Rumschlag, DO Britt Primary Care Provider Rumcoco, DO Britt Primary Care Provider MD Josué Evangelista Attending Provider [phone] Rumcoco, DO Britt Primary Care Provider MD [...] Britt Primary Care Unavailable Josué Evangelista Unavailable [facility] Primary Care Unava ilable MITCHELL TRAYLOR Admitting Unavailable MERCEDES ENRIQUEZ Consulting Unavailable MITCHELL TRAYLOR Attending Unavailable JONN HARGROVE Consulting Unavailable MITCHELL TRAYLOR Consulting Unavailable MISC, DR GARCIAS Attending Unavailable MISC, DR GARCIAS Consulting Unavailable [facility] Primary Care Unava ilable DR KATERINE GARCIA Admitting Unavailable RUMSCHLAG, BRITT Primary Care Unavailable YVONNE CAMARENA Referring Unavailable YVONNE CAMARENA Referring Unavailable BRITT PENALOZA Primary Care Unavailable CANDIS RENTERIA Admitting Unavailable CANDIS RENTERIA Attending Unavailable BRITT PENALOZA Primary Care Unavailable Lise RAWLS, Richard Guaman Attending Unavailable Allergies Allergy Classification Reported Allergen(s) Allergy Type Date of Onset Reaction(s) Facility (7 sources) penicillAMINE Drug Allergy Unknown [facility] [employer] Other (7 sources) Bee Sting Drug allergy Unknown [facility] [employer] Other (5 sources) Penicillins; Translations: [Penicillins] Allergy to substance 10-02-20 21 Unknown Reaction [facility] (5 sources) venom-honey bee; Translations: [venom-honey bee] Allergy to substance 10-02-20 21 Swelling [facility] (1 source) bee venom Drug allergy (disorder) [facility] (1 source) Penicillin Drug Allergy [facility] Medications Current Medications Medication Drug Class(es) [...] 5 MG PO EVERY 4-6 HOURS 70 October 17, 2021 January 13, 2023 9:23am [...] 5 MG PO Four times daily 40 October 17, 2021 1:00am January 13, 2023 [...] Exam NEGATIVE Report Status FINAL 10/16/2023 Normal [facility] Comment on above: Performed By: #### F HPY #### [facility] [employer] [facility] [place] [address] Key Cutter: Guy Ramey MD [facility] [address] [place], [place] [id number] Key Cutter: Justus Darby MD Surgical Pathology Reporton 10-15-2023 Surgical Pathology Report (NOTE) Path Number: [id number] -- Diagnosis -- A. 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 No dysplasia seen. B. Stomach, antrum, endoscopic biopsy: Superficial gastric antral mucosa with no specific abnormality, negative for Helicobacter pylori. Dianelys Mcgraw. Electronically Signed Out /10/17/2023 Clinical Information Pre-op Diagnosis: GASTROESOPHAGEAL REFLUX DISEASE, [...] cm in aggregate. Entirely 1cs. B. ROSA EASTMAN, GASTRIC ANTRUM BIOPSY Received in formalin are two gutierrez-white tissue fragments from 0.3 to 0.4 cm and are 0.4 x 0.4 x 0.2 cm in aggregate. Entirely 1cs. lm tm SF/tb1:10/16/2023 Microscopic Description A, B. 2 DENNISE reviewed for each. Microscopic examination performed. Processing Lab: [address] [address] Interpretation Performed at [address] [id number] SURGICAL PATHOLOGY CONSULTATION Patient Name: ROSA EASTMAN [facility] Rec: [id number] [facility] ANATOMIC PATHOLOGY [address] [place] [address]. [place], [place] [address] Normal [facility] CBC with Diffon 10-14-2023 Abs. Basophil 0.17 k/uL Normal 0.00-0.20 [facility] Comment on above: Performed By: #### C DP #### [facility] [address] [place] [address] Dr. [place], [place] [id number] Key Cutter: Justus Darby MD Abs.Imm.Granulocyte 0.04 k/uL Normal 0.00-0.30 [facility] Comment on above: Performed By: #### C DP #### [address] [place], [place] [id number] Key Cutter: Justus Darby MD Abs.Neutrophil (Seg) 5.08 k/uL Normal 1.50-8.10 [facility] Comment on above: Performed By: #### C DP #### [address] Garcia, [facility] Key Cutter: Justus Darby MD Basophils/100 WBC (Bld) 2 % Normal 0-[address] [facility] Comment on above: Performed By: #### C DP #### [address] Garcia, [facility] Key Cutter: Justus Darby MD Eosinophils (Bld) [#/Vol] 0.43 10*3/uL Normal 0.00-0.44 [facility] Comment on above: Performed By: #### C DP #### [address] [place], [place] [id number] Key Cutter: Justus Darby MD Eosinophils/100 WBC (Bld) 4 % Normal 1-4 [facility] Comment on above: Performed By: #### C DP #### [address] Gac[place], [facility]83 Key Cutter: Justus Darby MD Erythrocyte distribution width (RBC) [Ratio] 12.3 % Normal 11.8-14.4 [facility] Comment on above: Performed By: #### C DP #### [address] [place], [place] [id number] Key Cutter: Justus Darby MD Hematocrit (Bld) [Volume fraction] 44.4 % Normal 40.7-50.3 [facility] Comment on above: Performed By: #### C DP #### [facility] [address] [place], [facility]83 Key Cutter: Justus Darby MD Hemoglobin (Bld) [Mass/Vol] 14.6 g/dL Normal 13.0-17.0 [facility] Comment on above: Performed By: #### C DP #### [facility] [address] [place] [address] Dr. Garcia, [facility]83 Key Cutter: Justus Darby MD Immature granulocytes/100 WBC (Bld) 0 % Normal 0 [facility] Comment on above: Performed By: #### C DP #### [address] Garcia, [facility]83 Key Cutter: Justus Darby MD Lymphocytes (Bld) [#/Vol] 3.86 10*3/uL High 1.10-3.70 [facility] Comment on above: Performed By: #### C DP #### [address] Garcia, [facility]83 Key Cutter: Justus Darby MD Lymphocytes/100 WBC (Bld) 36 % Normal 24-43 [facility] Comment on above: Performed By: #### C DP #### [address] Garcia, [place] [address] Key Cutter: Justus Darby MD MCH (RBC) [Entitic mass] 30.9 pg Normal 25.2-33.5 [facility] Comment on above: Performed By: #### C DP #### [address] Garcia, [facility]83 Key Cutter: Justus Darby MD MCHC (RBC) [Mass/Vol] 32.9 g/dL Normal 28.4-34.8 [facility] Comment on above: Performed By: #### C DP #### [facility] [address] [place] [address] Dr. [place], [place] [id number] Key Cutter: Justus Darby MD MCV (RBC) [Entitic vol] 93.9 fL Normal 82.6-102.[address] [facility] Comment on above: Performed By: #### C DP #### [address] [place] [id number] Key Cutter: Justus Darby MD Monocytes (Bld) [#/Vol] 1.05 10*3/uL Normal 0.10-1.20 [facility] Comment on above: Performed By: #### C DP #### [address] [place], [place] [id number] Key Cutter: Justus Darby MD Monocytes/100 WBC (Bld) 10 % Normal 3-12 [facility] Comment on above: Performed By: #### C DP #### [address] [place], [place] [id number] Key Cutter: Justus Darby MD Neutrophil (Seg) 48 % Normal 36-65 [facility] Comment on above: Performed By: #### C DP #### [address] [place], [place] [id number] Key Cutter: Justus Darby MD NRBC Automated 0.0 per 100 WBC Normal 0.0 [facility] Comment on above: Performed By: #### C DP #### [address] [place], [place] [id number] Key Cutter: Justus Darby MD Platelet mean volume (Bld) [Entitic vol] 9.6 fL Normal 8.1-13.5 [facility] Comment on above: Performed By: #### C DP #### [address] [place], [place] [id number] Key Cutter: Justus Darby MD Platelets (Bld) [#/Vol] 297 10*3/uL Normal 138-453 [facility] Comment on above: Performed By: #### C DP #### [facility] [address] [place], [place] [id number] Key Cutter: Justus Darby MD RBC (Bld) [#/Vol] 4.73 10*6/uL Normal 4.21-5.77 [facility] Comment on above: Performed By: #### C DP #### [facility] [address] [place], [place] [id number] Key Cutter: Justus Darby MD WBC (Bld) [#/Vol] 10.6 10*3/uL Normal 3.5-11.3 [facility] Comment on above: Performed By: #### C DP #### [facility] [address] [place], [place] [id number] Key Cutter: Justus Darby MD Basic Metabolic Panelon 03-0 Anion gap [Moles/Vol] 9.8 mmol/L Normal 6.0-15.0 [facility] Comment on above: Performed By: #### C BC, BMP #### [facility] [address] [place] [id number] [place] Calcium [Mass/Vol] 9.1 mg/dL Normal 8.2-10.2 [facility] Comment on above: Result Comment: PERF ORMED BY: [facility] [address] [place] [id number] PATHOLOGIST QUALITY ASSURANCE ENGINEER GENEVIEVE CANNON M.D. Performed By: #### C BC, BMP #### [facility] [address] [place] [address] [place] Chloride [Moles/Vol] 104 mmol/L Normal 95-114 [facility] Comment on above: Performed By: #### C BC, BMP #### [facility] [address] [place] [address] [place] CO2 [Moles/Vol] 25.9 mmol/L Normal 22.0-30.0 [facility] Comment on above: Performed By: #### C BC, BMP #### [facility] [address] Creatinine [Mass/Vol] 0.98 mg/dL Normal 0.64-1.27 [facility] Comment on above: Performed By: #### C BC, BMP #### [facility] [address] Estimated GFR ( Camila > 60 Normal [facility] Comment on above: Result Comment: GFR estimated reference range: According to KDOQI guidelines, <60 ml/min/1.73m2 is sufficient to diagnose a patient with chronic kidney disease. Performed By: #### C BC, BMP #### [facility] [address] Estimated GFR (Non- Am > 60 Normal [facility] Comment on above: Performed By: #### C BC, BMP #### [address] Glucose [Mass/Vol] 82 mg/dL Normal 70-100 [facility] Comment on above: Result Comment: [place] Glucose Reference Range is dependent on time and content of last meal. Glucose of more than 200 mg/dL in a nonstressed, ambulatory subject supports the diagnosis of Diabetes Mellitus. ADA recommended reference range Performed By: #### C BC, BMP #### [address] Potassium [Moles/Vol] 3.7 mmol/L Normal 3.5-5.1 [facility] Comment on above: Performed By: #### C BC, BMP #### [place] [address] [place] Sodium [Moles/Vol] 136 mmol/L Normal 136-146 [facility] Comment on above: Performed By: #### C BC, BMP #### [address] Urea nitrogen [Mass/Vol] 11 mg/dL Normal 9-23 [facility] Comment on above: Performed By: #### C BC, BMP #### [place] [address] [place] Basophils Auto (Bld) [#/Vol] Ordered By: Josué Evangelista on 01-13-2023 Basophils (Bld) [#/Vol] 0.1 10*3/uL 0.0-0.2 [facility] Basophils/100 WBC Auto (Bld) Ordered By: Josué Evangelista on 01-13-2023 Basophils/100 WBC (Bld) 1.2 % . F [facility] Calcium [Mass/volume] in Ser um or PlasmaOrdered By: Josué Evangelista on 01-13-2023 Calcium [Mass/Vol] 9.1 mg/dL 8.2-10.2 [facility] Carbon dioxide, total [Moles /volume] in Serum or PlasmaOrdered By: Josué Evangelista on 01-13-2023 CO2 [Moles/Vol] 25.9 mmol/L 22.0-30.0 [facility] Chloride [Moles/volume] in S lai or PlasmaOrdered By: Josué Evangelista on 01-13-2023 Chloride [Moles/Vol] 104 mmol/L 95-114 [facility] Complete Blood Count Auto Di ffon 01-13-2023 Basophils (Bld) [#/Vol] 0.1 10*3/uL Normal 0.0-0.2 [facility] Comment on above: Result Comment: PERF ORMED BY: [place] [address] PATHOLOGIST QUALITY ASSURANCE ENGINEER GENEVIEVE CANNON M.D. Performed By: #### C MICHELLE, BMP #### [facility] [address] Basophils/100 WBC (Bld) 1.2 % Normal . F [facility] Comment on above: Performed By: #### C BC, BMP #### [facility] [address] [place] [address] [place] Eosinophils (Bld) [#/Vol] 0.5 10*3/uL High 0.0-0.45 [facility] Comment on above: Performed By: #### C MICHELLE, BMP #### [facility] [address] [place] [address] [place] Eosinophils/100 WBC (Bld) 4.7 % Normal . [facility] Comment on above: Performed By: #### C BC, BMP #### [address] Erythrocyte distribution width (RBC) [Ratio] 12.6 % Normal 12.0-14.8 [facility] Comment on above: Performed By: #### C BC, BMP #### [address] Hematocrit (Bld) [Volume fraction] 41.2 % Normal 38.8-50.0 [facility] Comment on above: Performed By: #### C BC, BMP #### [address] Hemoglobin (Bld) [Mass/Vol] 14.1 g/dL Normal 13.0-17.0 [facility] Comment on above: Performed By: #### C BC, BMP #### [address] Lymphocytes (Bld) [#/Vol] 3.4 10*3/uL Normal 1.00-4.8 [facility] Comment on above: Performed By: #### C BC, BMP #### [address] Lymphocytes/100 WBC (Bld) 33.3 % Normal . [facility] Comment on above: Performed By: #### C BC, BMP #### [address] MCH (RBC) [Entitic mass] 31.7 pg Normal 27.5-35.2 [facility] Comment on above: Performed By: #### C BC, BMP #### [address] MCV (RBC) [Entitic vol] 92.3 fL Normal 83.5-101 F [facility] Comment on above: Performed By: #### C BC, BMP #### [address] Mean Corpuscular HGB Conc 34.4 g/dL Normal 32.5-35.6 [facility] Comment on above: Performed By: #### C BC, BMP #### [facility] [address] [place] [address] [place] Monocytes (Bld) [#/Vol] 1.0 10*3/uL High 0.0-0.8 [facility] Comment on above: Performed By: #### C BC, BMP #### [facility] [address] [place] [address] [place] Monocytes/100 WBC (Bld) 10.1 % Normal . F [facility] Comment on above: Performed By: #### C BC, BMP #### [facility] [address] Neutrophils (Bld) [#/Vol] 5.2 10*3/uL Normal 1.8-7.7 [facility] Comment on above: Performed By: #### C BC, BMP #### [facility] [address] Neutrophils/100 WBC (Bld) 50.7 % Normal . [facility] Comment on above: Performed By: #### C BC, BMP #### [facility] [address] [place] [address] [place] NRBC% 0.1 /100{WBC} Normal 0-0.5 [facility] Comment on above: Performed By: #### C BC, BMP #### [facility] [address] [place] [address] [place] Platelet mean volume (Bld) [Entitic vol] 7.8 fL Normal 6.6-10.1 [facility] Comment on above: Performed By: #### C BC, BMP #### [facility] [address] [place] [address] [place] Platelets (Bld) [#/Vol] 268 10*3/uL Normal 150-450 [facility] Comment on above: Performed By: #### C BC, BMP #### [facility] [address] [place] [address] [place] RBC (Bld) [#/Vol] 4.46 10*6/uL Normal 3.90-5.60 [facility] Comment on above: Performed By: #### C BC, BMP #### [facility] [address] WBC (Bld) [#/Vol] 10.3 10*3/uL Normal 4.1-10.5 [facility] Comment on above: Performed By: #### C BC, BMP #### [facility] [address] Creatinine and Glomerular fi ltration rate.predicted panel (S/P/Bld)Ordered By: Josué Evangelista on 01-13-2023 Creatinine [Mass/Vol] 0.98 mg/dL 0.64-1.27 [facility] ECG 12 lead ECGon 01-13-2023 ECG 12 lead ECG [facility] Main [place] [address] [place] [address] Electrocardiograph Report Signed Patient: Rosa Eastman MR#: [id number] : 1965 Acct:[id number] Age/Sex: 57 / M ADM Date: 01/13/23 Loc: Room: Type: [facility] Attending Dr: Josué Evangelista MD Ordering Provider: [...] Marylin Eisenberg MD 0 01/14/23 1534 Normal [facility] Eosinophils Auto (Bld) [#/Vo l]Ordered By: Josué Evangelista on 01-13-2023 Eosinophils (Bld) [#/Vol] 0.5 10*3/uL 0.0-0.45 [facility] Eosinophils/100 WBC Auto (Bl d)Ordered By: Josué Evangelista on 01-13-2023 Eosinophils/100 WBC (Bld) 4.7 % . [facility] Erythrocyte distribution wid th Auto (RBC) [Ratio]Ordered By: Josué Evangelista on 01-13-2023 Erythrocyte distribution width (RBC) [Ratio] 12.6 % 12.0-14.8 [facility] Estimated glomerular filtrat ion rate (GFR) non- AmericanOrdered By: Josué Evangelista on 01-13-2023 GFR/1.73 sq M.predicted among non-blacks MDRD (S/P/Bld) [Vol rate/Area] > 60 mL/Min [facility] Glucose [Mass/volume] in Ser um or PlasmaOrdered By: Josué Evangelista on 01-13-2023 Glucose [Mass/Vol] 82 mg/dL 70-100 [facility] Comment on above: ADA recommended refe rence rangeRandom Glucose Reference Range is dependent on time and content of last meal. Glucose of more than 200 mg/dL in a nonstressed, ambulatory subject supports the diagnosis of Diabetes Mellitus. Hematocrit Auto (Bld) [Volum e fraction]Ordered By: Josué Evangelista on 01-13-2023 Hematocrit (Bld) [Volume fraction] 41.2 % 38.8-50.0 [facility] Hemoglobin [Mass/volume] in BloodOrdered By: Josué Evangelista on 01-13-2023 Hemoglobin (Bld) [Mass/Vol] 14.1 g/dL 13.0-17.0 [facility] Leukocytes [#/volume] correc lesly for nucleated erythrocytes in Blood by Automated counOrdered By: Josué Evangelista on 01-13-2023 WBC corrected for nucl RBC Auto (Bld) [#/Vol] 10.3 10*3/uL 4.1-10.5 [facility] Lymphocytes Auto (Bld) [#/Vo l]Ordered By: Josué Evangelista on 01-13-2023 Lymphocytes (Bld) [#/Vol] 3.4 10*3/uL 1.00-4.8 [facility] Lymphocytes/100 WBC Auto (Bl d)Ordered By: Josué Evangelista on 01-13-2023 Lymphocytes/100 WBC (Bld) 33.3 % . [facility] MCH Auto (RBC) [Entitic mass ]Ordered By: Josué Evangelista on 01-13-2023 MCH (RBC) [Entitic mass] 31.7 pg 27.5-35.2 [facility] MCHC Auto (RBC) [Mass/Vol]Or dered By: Josué Evangelista on 01-13-2023 MCHC (RBC) [Mass/Vol] 34.4 g/dL 32.5-35.6 [facility] MCV Auto (RBC) [Entitic vol] Ordered By: Josué Evangelista on 01-13-2023 MCV (RBC) [Entitic vol] 92.3 fL 83.5-101 F [facility] Monocytes Auto (Bld) [#/Vol] Ordered By: Josué Evangelista on 01-13-2023 Monocytes (Bld) [#/Vol] 1.0 10*3/uL 0.0-0.8 [facility] Monocytes/100 WBC Auto (Bld) Ordered By: Josué Evangelista on 01-13-2023 Monocytes/100 WBC (Bld) 10.1 % . F [facility] Neutrophils Auto (Bld) [#/Vo l]Ordered By: Josué Evangelista on 01-13-2023 Neutrophils (Bld) [#/Vol] 5.2 10*3/uL 1.8-7.7 [facility] Neutrophils/100 WBC Auto (Bl d)Ordered By: Josué Evangelista on 01-13-2023 Neutrophils/100 WBC (Bld) 50.7 % . [facility] No Panel InformationOrdered By: Josué Evangelista on 01-13-2023 Estimated GFR () > 60 mL/Min [facility] Comment on above: GFR estimated refere nce range: According to KDOQI guidelines, <60 ml/min/1.73m2 is sufficient to diagnose a patient with chronic kidney disease. Pharmacy Creatinine Clearance (Chem N/A [facility] Nucleated erythrocytes [Pres ence] in Blood by Automated countOrdered By: Josué Evangelista on 01-13-2023 Nucleated RBC Auto Ql (Bld) 0.1 /100{WBC} 0-0.5 [facility] Platelet mean volume Auto (B ld) [Entitic vol]Ordered By: Josué Evangelista on 01-13-2023 Platelet mean volume (Bld) [Entitic vol] 7.8 fL 6.6-10.1 [facility] Platelets Auto (Bld) [#/Vol] Ordered By: Josué Evangelista on 01-13-2023 Platelets (Bld) [#/Vol] 268 10*3/uL 150-450 [facility] Potassium [Moles/volume] in Serum or PlasmaOrdered By: Josué Evangelista on 01-13-2023 Potassium [Moles/Vol] 3.7 mmol/L 3.5-5.1 [facility] RBC Auto (Bld) [#/Vol]Ordere d By: Josué Evangelista on 01-13-2023 RBC (Bld) [#/Vol] 4.46 10*6/uL 3.90-5.60 [facility] Serum or plasma anion gap de terminationOrdered By: Josué Evangelista on 01-13-2023 Anion gap [Moles/Vol] 9.8 mmol/L 6.0-15.0 [facility] Sodium [Moles/volume] in Ser um or PlasmaOrdered By: Josué Evangelista on 01-13-2023 Sodium [Moles/Vol] 136 mmol/L 136-146 [facility] Urea nitrogen [Mass/volume] in Serum or PlasmaOrdered By: Josué Evangelista on 01-13-2023 Urea nitrogen [Mass/Vol] 11 mg/dL 08-02 [facility] WBC Auto (Bld) [#/Vol]Ordere d By: Josué Evangelista on 01-13-2023 WBC (Bld) [#/Vol] 10.3 10*3/uL 4.1-10.5 [facility] XR cerv spine AP/LAT/FLX/EXT on 12-06-2022 XR cerv spine AP/LAT/FLX/EXT [facility] [place] [address] XRay Report Signed Patient: Rosa Eastman MR#: [id number] : 1965 Acct:[id number] Age/Sex: 57 / M ADM Date: 12/06/22 Loc: XD Room: Type: [facility] Attending Dr: Josué Evangelista MD Copies to: Josué Evangelista MD Ordering Provider: Josué Evangelista [...] Erasmo Maddox M.D.12/06/2022 2:26 PM Dictation Location: [place] [address] Transcribed By: [facility] 12/06/221425 Dictated By: Erasmo Maddox DO 12/06/221421 Signed By: 12/06/22 142 [facility] CBC AUTO DIFFon 08-10-2022 BASO # 0.2 103/ul Critically high 0.0-0.1 [facility] Comment on above: Performed By: #### C BC #### [facility] [address] [address] [address] Mars Sanders Basophils/100 WBC (Bld) 2.0 % Normal 0.2-2.0 [facility] Comment on above: Performed By: #### C BC #### [facility] [address] [place] [address] [address] Mars Sanders EO # 0.5 103/ul Normal 0.0-0.7 [facility] Comment on above: Performed By: #### C BC #### [facility] [address] [place] [address] Dr. Mars Sanders Eosinophils/100 WBC (Bld) 5.7 % Normal 0.9-7.0 [facility] Comment on above: Performed By: #### C BC #### [facility] [address] [place] [address] Dr. Mars Sanders Erythrocyte distribution width (RBC) [Ratio] 12.4 % Normal 11.0-15.0 [facility] Comment on above: Performed By: #### C BC #### [facility] [address] [place] [address] Dr. Mars Sanders Hematocrit (Bld) [Volume fraction] 41.8 % Critically low 42.0-54.0 [facility] Comment on above: Performed By: #### C BC #### [facility] [address] [place] [address] Dr. Mars Sanders Hemoglobin (Bld) [Mass/Vol] 14.0 g/dL Normal 14.0-18.0 [facility] Comment on above: Performed By: #### C BC #### [facility] [address] [place] [address] Dr. Mars Sanders IG # 0.02 10e3/ul Normal 0.00-0.03 [facility] Comment on above: Performed By: #### C BC #### [facility] [address] [place] [address] Dr. Mars Sanders IG % 0.2 % Normal 0.0-0.5 [facility] Comment on above: Performed By: #### C BC #### [facility] [address] [place] [address] Dr. Mars Sanders LYMPH # 3.1 103/ul Normal 1.2-3.8 [facility] Comment on above: Performed By: #### C BC #### [facility] [address] [place] [address] Dr. Mars Sanders Lymphocytes/100 WBC (Bld) 36.3 % Normal 20.5-60.0 [facility] Comment on above: Performed By: #### C BC #### [facility] [address] [place] [address] Dr. Mars Sanders MANUAL DIFF REQ NO Normal [facility] Comment on above: Performed By: #### C BC #### [facility] [address] [place] [address] Dr. Mars Sanders MCH (RBC) [Entitic mass] 31.4 pg Normal 25.9-34.0 [facility] Comment on above: Performed By: #### C BC #### [facility] [address] [place] [address] Dr. Mars Sanders MCHC (RBC) [Mass/Vol] 33.5 g/dL Normal 29.9-35.2 [facility] Comment on above: Performed By: #### C BC #### [facility] [address] [place] [address] Dr. Mars Sanders MCV (RBC) [Entitic vol] 93.7 fL Normal 80.0-94.0 [facility] Comment on above: Performed By: #### C BC #### [facility] [address] [place] [address] Dr. Mars Sanders MONO # 0.8 103/ul Normal 0.3-0.8 [facility] Comment on above: Performed By: #### C BC #### [facility] [address] [place] [address] Dr. Mars Sanders Monocytes/100 WBC (Bld) 10.0 % Normal 1.7-12.0 [facility] Comment on above: Performed By: #### C BC #### [facility] [address] [place] [address] Dr. Mars Sanders NEUT # 3.9 103/ul Normal 1.4-6.5 [facility] Comment on above: Performed By: #### C BC #### [facility] [address] [place] [address] Dr. Mars Sanders Neutrophils/100 WBC (Bld) 45.8 % Normal 43.0-75.0 [facility] Comment on above: Performed By: #### C BC #### [facility] [address] [address] [address] Mars Sanders Platelet mean volume (Bld) [Entitic vol] 9.4 fL Critically low 9.5-13.5 [facility] Comment on above: Performed By: #### C BC #### [facility] [address] [address] [address] Mars Sanders PLT 251 103/ul Normal 150-450 [facility] Comment on above: Performed By: #### C BC #### [facility] [address] [address] [address] Mars Sanders RBC 4.46 106/ul Critically low 4.70-6.10 [facility] Comment on above: Performed By: #### C BC #### [facility] [address] [place] [address] Dr. Mars Sanders WBC 8.4 103/ul Normal 4.0-11.0 [facility] Comment on above: Performed By: #### C BC #### [facility] [address] [place] [address] Dr. Mars Sanders D-DIMERon 08-10-2022 D-DIMER 0.35 mg/L FEU Normal <=0.59 [facility] Comment on above: Performed By: #### D DIM #### [facility] [address] [place] [address] Dr. Mars Sanders D-DIMER COMMENTS SEE BELOW Normal [facility] Comment on above: Result Comment: Incr [...] hospitalization. Performed By: #### D DIM #### [facility] [address] [place] [address] Dr. Mars Sanders PROF 14(COMP METB)on 022 Albumin [Mass/Vol] 3.8 g/dL Normal 3.4-5.0 [facility] Comment on above: Performed By: #### H ALESSIO, CMP #### [facility] [address] [address] [address] Mars Sanders Albumin/Globulin [Mass ratio] 1.0 {ratio} Normal [facility] Comment on above: Performed By: #### H ALESSIO, CMP #### [facility] [address] [address] [address] Mars Sanders ALP [Catalytic activity/Vol] 127 U/L Critically high 46-116 [facility] Comment on above: Performed By: #### H ALESSIO, CMP #### [facility] [address] [address] [address] Mars Sanders ALT [Catalytic activity/Vol] 30 U/L Normal 16-63 [facility] Comment on above: Performed By: #### H ALESSIO, CMP #### [facility] [address] [address] [address] Mars Sanders Anion gap [Moles/Vol] 13.5 mmol/L Normal [facility] Comment on above: Performed By: #### H ALESSIO, CMP #### [facility] [address] [address] [address] Mars Sanders AST [Catalytic activity/Vol] 20 U/L Normal 15-37 [facility] Comment on above: Performed By: #### H ALESSIO, CMP #### [facility] [address] [address] [address] Mars Sanders Bilirubin [Mass/Vol] 0.3 mg/dL Normal 0.2-1.0 [facility] Comment on above: Performed By: #### H MIKEYPN, CMP #### [facility] [address] [address] [address] Mars Sanders Calcium [Mass/Vol] 8.7 mg/dL Normal 8.5-10.1 [facility] Comment on above: Performed By: #### H ALESSIO, CMP #### [facility] [address] [address] [address] Mars Sanders Chloride [Moles/Vol] 105 mmol/L Normal 98-107 [facility] Comment on above: Performed By: #### H STROPN, CMP #### [facility] [address] [address] [address] Mars Sanders CO2 [Moles/Vol] 25.4 mmol/L Normal 21.0-32.0 [facility] Comment on above: Performed By: #### H STROPN, CMP #### [facility] [address] [address] [address] Mars Sanders Creatinine [Mass/Vol] 0.98 mg/dL Normal 0.70-1.30 [facility] Comment on above: Performed By: #### H STROPN, CMP #### [facility] [address] [address] [address] Mars Sanders EGFR-AF CZECH >60 Normal >=60 [facility] Comment on above: Performed By: #### H STROPN, CMP #### [facility] [address] [address] [address] Mars Sanders EGFR-NON AF CZECH >60 Normal >=60 [facility] Comment on above: Performed By: #### H MIKEYPN, CMP #### [facility] [address] [address] [address] Mars Sanders Globulin (S) [Mass/Vol] 3.9 g/dL Normal [facility] Comment on above: Performed By: #### H STROPN, CMP #### [facility] [address] [address] [address] Mars Sanders Glucose [Mass/Vol] 102 mg/dL Normal 74-106 [facility] Comment on above: Performed By: #### H STROPN, CMP #### [facility] [address] [address] [address] Mars Sanders Potassium [Moles/Vol] 3.9 mmol/L Normal 3.5-5.1 [facility] Comment on above: Performed By: #### H STROPN, CMP #### [facility] [address] [address] [address] Mars Sanders Protein [Mass/Vol] 7.7 g/dL Normal 6.4-8.2 [facility] Comment on above: Performed By: #### H ALESSIO, CMP #### [facility] [address] [place] [address] Dr. Mars Sanders Sodium [Moles/Vol] 140 mmol/L Normal 136-145 [facility] Comment on above: Performed By: #### H ALESSIO, CMP #### [facility] [address] [place] [address] Dr. Mars Sanders Urea nitrogen [Mass/Vol] 14.0 mg/dL Normal 7.0-18.0 [facility] Comment on above: Performed By: #### H ALESSIO, CMP #### [facility] [address] [place] [address] Dr. Mars Sanders Urea nitrogen/Creatinine [Mass ratio] 14.3 mg/mg Normal [facility] Comment on above: Performed By: #### H ALESSIO, CMP #### [facility] [address] [place] [address] Dr. Mars Sanders PROTIMEon 08-10-2022 INR Coag (PPP) [Relative time] 0.95 {INR} Normal [facility] Comment on above: Performed By: #### P T, PTT #### [facility] [address] [place] [address] Dr. Mars Sanders INR GUIDELINES SEE BELOW Normal [facility] Comment on above: Result Comment: EDU RED INR: 2.0 - 3.0 CONDITIONS NOT LISTED BELOW 2.5 - 3.5 FOR PROSTHETIC HEART VALVE REPLACEMENT 2.5 - 3.5 RECURRENT THROMBOSIS Performed By: #### P T, PTT #### [facility] [address] [place] [address] Dr. Mars Sanders PT Coag (PPP) [Time] 10.3 s Normal 9.0-11.6 [facility] Comment on above: Performed By: #### P T, PTT #### [facility] [address] [place] [address] Dr. Mars Sanders PTTon 08-10-2022 aPTT Coag (Bld) [Time] 29.9 s Normal 22.3-36.2 [facility] Comment on above: Performed By: #### P T, PTT #### [facility] [address] [address] [address] Mars Sanders TROPONIN, HIGH SENSITIVITYon 08-10-2022 HSTROP 12.3 pg/mL Normal 4.0-76.1 [facility] Comment on above: Result Comment: CUT- OFF POINTS HAVE BEEN ESTABLISHED BASED ON THE FOURTH UNIVERSAL DEFINITIONS OF MYOCARDIAL INFARCTION. THE UPPER REFERENCE LIMIT (URL) OF TROPONIN, DEFINED THE 99TH PERCENTILE OF cTnI DISTRIBUTION IN A REFERENCE POPULATION, HAS BEEN CONFIRMED THE DECISION THRESHOLD FOR PA DIAGNOSIS. Performed By: #### H STROPN, CMP #### [facility] [address] [address] [address] Mars Sanders XR CHEST 1 Von [...] JONN HARGROVE Date: 2022-08-10 18:59 Normal [facility] MR head/brain wo conon 07-08 MR head/brain wo con [facility] [place] [address] [place] [address] MRI Report Signed Patient: Rosa Eastman MR#: [id number] : 1965 Acct:[id number] Age/Sex: 57 / M ADM Date: 07/08/22 Loc: [facility] Room: Type: [facility] Attending Dr: Candida LEACHC Copies to: Candida Alexander PAC Ordering Provider: Canidda Alexander PAC Date of Service: 07/08/22 MR/MR [...] Rob Funez M.D.07/08/2022 1:37 PM Dictation Location: [place] [address] Transcribed By: [facility] 07/08/22 1337 Dictated By: Rob Funez II, MD 07/08/22 1334 Signed By: 07/08/22 1337 [facility] Folate [Mass/volume] in Seru m or PlasmaOrdered By: Candida Alexander on 06-21-2022 Folate [Mass/Vol] 7.4 ng/mL >5.9 [facility] Comment on above: Folate reference ran ge: >5.9 ng/ml The WHO technical consultation on folate and vitamin b12 deficiencies has determined that folate concentrations less than 4 ng/ml are considered deficient. Free T4 (Free Thyroxine)on 0 06-21-2022 Free T4 [Mass/Vol] 0.77 ng/dL Normal 0.61-1.12 [facility] Comment on above: Performed By: #### V [id number], T4F, TSH3 #### [address] #### METH #### [facility] , Laboratory - Chemistry and C hemistry - challengeOrdered By: Candida Alexander on 06-21-2022 Cobalamin (Vitamin B12) [Mass/Vol] 369 pg/mL 180-914 [facility] Methylmalonic Acidon 022 Methylmalonic Acid 241 Normal 0-378 [facility] Comment on above: Result Comment: This test was developed and its performance characteristics determined by [facility]. It has not been cleared or approved by the Food and Drug Administration. Performed at: [facility] [address] [id number] Key Cutter: Millicent Calderon MD, Phone: [phone] PERFORMED BY: [place] [address] PATHOLOGIST QUALITY ASSURANCE ENGINEER GENEVIEVE CANNON M.D. Performed By: #### V [id number], T4F, TSH3 #### [address] #### METH #### [facility] , Serum or plasma methylmalona te measurement (moles/volume)Ordered By: Candida Alexander on 06-21-2022 Methylmalonate [Moles/Vol] 241 nmol/L 0-378 [facility] Comment on above: This test was develo ped and its performance characteristics determined by [facility]. It has not been cleared or approved by the Food and Drug Administration. Performed at: [facility] [address] [id number] Key Cutter: Millicent Calderon MD, Phone: [phone] TSH DL <= 0.005 mIU/L QnOrde red By: Candida Alexander on 06-21-2022 TSH Qn 2.46 m[IU]/L 0.45-5.33 [facility] Thyroid Stimulating Hormoneo n 06-21-2022 TSH Qn 2.46 m[IU]/L Normal 0.45-5.33 [facility] Comment on above: Result Comment: PERF ORMED BY: [place] [id number] PATHOLOGIST QUALITY ASSURANCE ENGINEER GENEVIEVE CANNON M.D. Performed By: #### V [id number], T4F, TSH3 #### [place] [address] [place] #### METH #### [facility] , Thyroxine (T4) free [Mass/vo lume] in Serum or PlasmaOrdered By: Candida Alexander on 06-21-2022 Free T4 [Mass/Vol] 0.77 ng/dL 0.61-1.12 [facility] Vit. B12/Folate Profileon Cobalamin (Vitamin B12) [Mass/Vol] 369 pg/mL Normal 180-914 [facility] Comment on above: Performed By: #### V [id number], T4F, TSH3 #### [place] [address] [place] #### METH #### [facility] , Folate 7.4 ng/mL Normal >5.9 [facility] Comment on above: Result Comment: Rosa M te reference range: >5.9 ng/ml The WHO technical consultation on folate and vitamin b12 deficiencies has determined that folate concentrations less than 4 ng/ml are considered deficient. Performed By: #### V [id number], T4F, TSH3 #### [place] [address] [place] #### METH #### [facility] , Coding Summaryon 02-13-2022 Coding Summary HTMLBase 64 RdeegmnjCBq0mHk+PGhl YWQ+RX5FBBLzY58ufCXa hD9KO8cSDW1UFQXVGQOE TX5KAT5hiFX8AMbwX0Pw biAv WfeycEBwDD52GSa4LEY6 oVmjNQtmuN0kdVTlN0c4 GuRoEN33dR78HRqcRHIy TwT7AbSdzsnhsKPq G2miErPgkAEsTfq+PHRh YmxlIHdpZHRoPScxMDAl OcDwgTrkWQ5zNa7yJAIr LWNvbGxhcHNlOiBj e1kvRDXbSEinRH3sqEtr R9WvqEU0ONGid5y4Ne91 dHI+HUAuTUF6nXtiTWpc w670GjWkh2zdCZN5 mJNbZUxzYON6K67hf0M4 FEUtEKGeSHX6oWI3gE3o xTclkvqpQ4FbnOFiRwP8 YKE9qUIjoN4anTlk snhrcK6pXfe+S62TPM1W GFFECG9AUwl6D5PjEnbp dHI+ES49EZBdUN09cITk mVBoa5hbyZq0TwLl QDGrRVM2hHmyIDofr7Us OPOlW41vaXCxu8W0WSBj oRhezBMoEtObkDU4gO5y CQssxkplq9hifejm Tnsmq5pren68bF18N23o SMzrIBZuJFW0EWJqMMDf yVkfhu5yqY0hTa6+IDxj q9rin2wxlBg8FzMt TKQwfwEzjYddFBG8a4Ej Vx66Z1JaoAqqj3HdCme5 yv72pTIou7C8mZT3LJqq OBQwiH1oCBosRpM3 JKYjOkAvoC36rTSkHFfo Ux4dcElkvZrlZN9pCJGv booaHXIxiU8lFRMbrBJr rIvjUZ5jTETcfomk z198BmOjNZN1BLGznXYk P8TlvD6uLeThWGBuDHIp M4XhtSUtTUdmM615TJku MkF7KGNlhuArQ7Ea FGRhhSgtRaT1h1G5Av9I g5PiorlcICL3TUwjIMH1 RnQ7GrXlWgE5N5GiZhn6 SDOmgEjuIS1vZ8Jr GQFyvsjeklfjeYU1KJJw DCOutB01kIMfZUxoDd4v s1W7c006YFNcKDGqmC32 Uw0upKniEZUahKXI dK9zvglmu4pnvuhyJmAl HCDdIQr4HJd8RSXgqNfa PkRsSGV4XmG5GYN4sHXm bN0gqOisqhpwgR2d Oyc+O16ezF9pAXJ1XNV2 eorxAEGstxBsAJ60XK74 H5QcSyxtdPRikSQ+PGRp oqFxfPpmLV3iYdBt k4vcf5HpWEzdM0AdJMAa KWekUnh4BMXtGEW4rCQ4 vS7uJBZqQTirz7Q9dCO5 X8GxbvCvqx4hs6py CWBeINctC36poEElr5B4 FPLcqNP4BAEjaAsvOlJl lK27Edv+HKQztPrqc0Ec Uejec2wrh7sizDt7 IjMwJSIgdmFsaWduPSJ0 a0PsMt07K46rUDznBYGq NYTiZULaJPOozCyvej9w vO2yWw0+PGNvbCB3 vPE2aT1bMMZcDjP8CRjz V240JbSvxHZvZseyg6dp g8fkmGc0DyXvJVPinwXf kFhkEBZ7p3MxKk08 S25eXFhvQWLnOLFaYMXo DELkjSezes8jdJ3vEe4+ ZD4sz7jomq47lS02wJW+ HLPeZXH7gExuCPap EMWsjS8iHTddGlL2KTQn GhHlqI38wOLnIGnnDp6c tHvicUfiBM2jOLQbzpux w083XfKsr9lqWHRs yESsBRueMIU8W01am1P8 XRSmEWPkXQH1iCH3lU0f bGlnbjogbGVmdDsgdmVy yTbgNGnpJFzyD546 IHRvcDsnPlBhdGllbnQg NaHlNRb0P0CuMna0UJQt qBxcEX4qhTSlUEgcLv2b cTddjUdzGP7dYCTw fwmlu985WlXwm8lnXEXg nSJsUUfwQDJ8K25sr2T3 PZBeNSUiWPS8mSU1nN4b bGlnbjogbGVmdDsg vjGbbMngTKbhWOwoV628 IHRvcDsnPkJpcnRoIERh uXS8PI29HB14xJWyg9T2 bHD8A0MgBGKaroxb wgkmrBG5KGXyXKXluR72 Ef2bsFruVe2aNESmUFL4 DFTnkULlV4GnsC8bRmSr HDTzNWHmK8SviSTa IIniY802HUjwYlY9NDPg rlAgC7WzJXSizBmeAwP4 l6K9Qe1YD2L9CQ37KH53 dSTwi4W9xMD4Q9Px WGXokklveujxiKU0GGOy BXOouI84Es9pvLnqQy4v PCXpFNT0EBTvuPSxF3Rb dW8dJwCvMSQnUHIb R1FsqFEhBBxbP934ISbe BvZ0HQHzfgZdU9CiXCMh uDlvXnP8o2D3Sm9MPJi9 SR16YJ43vLZzk1X4 gHB3K7YyYJLgxhmvover mJP7FWNpPKCzuJ41Pv0e qAssGi1gYDKyNOI7MWNh qZYjY0RadJ7aCmXg CPAhNQKhM4RmkHTqPObc U554FDjhKrR6JFCpkjWj A4JwWALffAzwQyP2a8S2 Ky0JKTTcXF56GRM1 hGG9EB17ER35P5DqAcyt dGFibGU+PHRhYmxlIHdp ZHRoPScxMDAlJyBzdHls JU3sHf8vCTZvMMSc sAvnuONrFfQkt6dmHYUo PPhcGF9zpNwmJ8VosAK2 XUEnp8y3Yr41U30xN3Ie dXA+JRCbhKT2lOL3 eC3sEiQhGvW0HEwlC533 LkGhwXPgJxvjb9imo2gt iQg8TdX8CTMjzpZklBpl IZT3s7CcHw69M58i IHdpZHRoPSIxNSUiIHZh cPfidg0fzF0uCq1+PGNv wHH3lWQ0qB4rFoGuSqM7 SQgiR612JnTqfPIk Cbktx6pam3wemSm5IkNa YHNvvfDnaXebRSE7t7Gw Ow10F8UgqDhdf8WjSue6 np90vJJec5R7zLK1 C7ZmMOWztcqamZXgsFal YL9fVPAsxjdpWVCnxR8n TLLuL5h3PpWwEaV1XVvf Z8ZihiJ4WVCuyPMj UImhEOK0R89if3Q4JKNj NXYxZRY6vFM8iE8lrDll bjogbGVmdDsgdmVydGlj VBjzJJrbU781GBTv sLztYFXqaK4aUZSrmXJb tPuiZB7bBRUahjxbSjUM O3DZK04CGFKIA3NHAjId NRyJIN64B7CjMcn6 RNGxcXzkOR4wjEUkXWpo Tx2ifVwplRmiCW9qTCNm regqSCNpkU0lUMSomQKs dAadGF8xNWAvaeho v953RaWdYDZ0JJNmvQHp O3RqgB3fOrSnWKUcFQEx I3MnhYSyTMkxU013SLeo NvZ0QGAlaoOiX4Fb XOPafUcaKiY7r8G0Vl1f YA0hBb9iPTO6LC30OA91 vRAwl5V9wXV0S8SsAGIr sreegilocKM3YIVh HVCetM46gUMnJEnwVn4h w4G7t364AMYxWZJqzS69 Ct7lwTrrNSYrgLQApW8t kabzu3nilcmyMjEn NCWiYXh3LBz0GBNcaSgj TlZqJHE2KzM3EJN8zSLa kF3rzQsqmxiskS3fTvd+ AWJjTHPdomK5E7Ji Ghv7GPSbgMihLB5lnJAv FRelOb5pxPrxoCupBN7f ZLSpyrzbACLrdB6jLQQp pTFurPbpUS7tSGWy xgfnj330ZoMtZSF5NANs qVMuV8VveY3wCuHkXXEt MSOjJ3GocZXpLNpwM938 BColOlE3GCWoscEy V7WbLQBubGavMjY8n7Q5 Ov0BSSwCGJ00MI08pGCq m8M6dBU9V3JfYAMrwyht poarlVP9EATdVISa kF04xILlHRvoSk7sc8C7 w124BUEfKYEznZ87Tc2j pUudZGEkcSMNnI2onmbg p3bxuyzyGwAeCVYv GDr1XRa6WQDenFmfKoDq WNA8QfS8JJD7bYVqzR7z bYaozznzlY8oLyl+T1A8 F4DwSolmlDP+PC90 ZIWwEK39mIFhlKPve7fb mAn0YnDdYOLuFGO8mQpy VJnqh9MdHEBnB05atPPz o1J6CETrmKramBSk BfBtsWG2rG2zIDpwerzs x4asqmqjAnwbs2zqdb73 uJ98D07tXYpqISLfJDDf AJRpIQEriMiefu6d hE3tHp8+CKFheJI4zWH2 dY1hOeAyErN5DJtpH506 YoHcaFToYmjon2wxz7oh cFo5DdZvNNIygwKo xJzoSVD8l8YkJh98P62h IHdpZHRoPSIyMCUiIHZh pCfeto9umL0cNr2+PC9j k8bajh00oO56xKF+ DNRzXVS6cXkjODtzKQVx uN1tTQzqLhA7EMHlYzZj oQ74yLSrXLwkQs0agReq uNbbSP0kVGKdygpt s105DqKel0smVEDaoFZy KGguGPL8Y90xk3C3LAWm WUZvYMA5rMG6gK7nxBtf bjogbGVmdDsgdmVy yFowPJhySSmxF185VPRe aAkjCoVnbERwC5drxuYX VU0kVrvmjAA+PHRkIHN0 nZhiYBbwSRMeiH9d FSWtB7z5OeHqPaU4OUml U3LzvfM0JHXzoUTsDUGw eWNLkI4dvrtjc3cvazqv ViKqNPTqCAx0WTf8 MPNhhTcaAnBqGVT2HpO4 HRA7jMMnoX8kxQfqybrp kC1uOdn+RklOOjwvdGQ+ UFQuCNZ6wDfsMFgy LQIwyA5xHMReH6b4WtOw NlB6JSyrL0QejgF2LFRl oFAsKKZmnLQVlG9ttxjr a1ccoruzUaYpTBXm USk0KHh7FYCqfTmcRkYn SAL7NpR6WBS8jRPsjU4v fQsnaxlrvD9uVfg+TVJO OjwvdGQ+PHRkIHN0 nVseDKchTYCbeP8jLYOm L4r4GfDoGoT4BLxyR1Ak kfF3HIYwiGBjHKKjkOIZ pO2pxhtvd6hyhrkv RwIaTILjJPg3MOy1HUVn yFhfDfAlKNS8GdV2UJX4 wUNatA8inMkjddkncQ5j Oyc+TKA6OVV5KX82 YR68T3LeGhlzxSRdqAN+ PHRhYmxlIHdpZHRoPScx ENVpEoUtmAvyOI1sYe1c ZGVyLWNvbGxhcHNl OiB (more content not included)... [facility] Coding Summary HTMLBase 64 CgfecgudVIc4bOw+PGhl YWQ+QA1GPPQcT66uvMGx sI7PB2rTEC6YKTITBPQQ KW9RVV2fcOC8OYkkV7Ha biAv UofjyWApZX12MSj6MNM5 iAnyUDpzbO0itJIwO7s0 MuRcYT92eA71GEdhBIMm QwI5JpXvxlpwgGLm Y6ujVtVvmYHqMzf+PHRh YmxlIHdpZHRoPScxMDAl ZyVruZawBE4jLj7jJUPf LWNvbGxhcHNlOiBj j6ccMWNmBPqrDH7lfPeg C3VzrSY2FZLet5e1Nv64 dHI+IXNjKKW4qWjeMLxt h239VkJph1nwOCY0 pABzNXihNMT1M29kn8O3 KJHvKTEcZUP0jVD7tQ6q bBwgukopK1TkaILlVqR1 MUQ0kHJdwU0doWld jxppyS8dVpw+Y83HJI0L EORTCZ2OYbc0P3PdGzck dHI+BO80MMKkUA78aUAd jVGue4tqmRq4BeRo OJBeUDP2nVyhIBcqq0Ir BKEoD98pdVXez4H2HSCh jJcjwGWyJvKpeAK0sJ9z VCdfjdsla3dajfwk Skham1kuec17bP38B61x CLrfNQNkSDI5YNVsJHVn iCgkjy8moC4hMk9+IDxj n9dpb1tzkNj4HjIz AJSijfMnwAxqZIC8v6Ah Tg48M3MzzZblu1CeJjr1 sc78rSUgx5O5iEA1QWok XBCpkV8sXDwnDcM5 QFAhFhJvzX54hYLoDHqk Ol9iqPmleForWP1kXEEl geewSIFoaG6pBXClxBGk qYurTR2pDQKjdkus k069OgFgPXG3EBUgaCQv H4GwjZ7yQsCjHVOjTLLo Y2EsjSLsQXagP983XEam BkY1DGPkyiYsD5Rj YGKmiRwjTbT0q6B4Xk3T k6XdwxsvNEY3TYflAOR9 CdE3PtIwAdQ2R3IwKnh5 KTOnmPiaYD1bQ4Cz NSMsrtbujlgxhXX9TXUl KQTyjS24aFNuLSwhDg9v z4B5b419ZACdIHZuuI94 Ad8nqZvoIWUfiLDA uC9ckwllw2jajxqbGlSx XFHhIPl0UNm2EFHmxRyv QuHdWPW3SlO7EFO3iSGb jC7loUcgdtglkI9l Oyc+X24jhB5jIMW0VBU6 keodVYHozfPnWQ14ZR70 O5FyUerzkMQffMT+PGRp jdPqiFhjPD8cRbCk n2sfn8RwVUghN5KuYFJt KQljOwz6FUCxGUO5rSI5 lJ2fXOHuHQwap6U8mQO2 L7VaowSblh5lt4ni WRQvIZakH49yzJWmb2Q6 FDZolPV5SWVvcMrvPjCj iP19Yac+NSOdwZxlx7Ev Ktyjr4fwn0jafEn7 IjMwJSIgdmFsaWduPSJ0 b1ZqIj93K29hTOihUMCp ESEnTVHuJWSvbAfzmr4o aH1hGh7+PGNvbCB3 bYG2iI7bWLQkYmO3HSob C404TfQsiPAzEimsq5fm s2zdrUy9SrTlPWEfswXv lJgoJWK2d9TxHq29 J14hQAvnBIFiTDWzTKKc CXGleZrpwp3fbU2yFk3+ SX5kk4lujc34kH66dYH+ DSAaWPM3xQdlEMck ZYXdmD4sTQvrGpD6OZCf IlFezX66wTTpGWywAz5v dCcsnXciLR4fKIGnpvlz s821PwVno9ajMFXd eGLyNNcgJBB0A46gu9F9 APRzCNJtORG4tNE1qH4g bGlnbjogbGVmdDsgdmVy rPzaLIniBYomO257 IHRvcDsnPlBhdGllbnQg RuViCRf2S6JiMll4KDYr lVkaAO6aaAWyFGtaEh5f fDdicRfaZL1lTHSt zvunn394ZgXdo2euJXTs qRNqZSmsNSZ9B04dk0T6 LBXrPUWyMHI6nJV0cC1h bGlnbjogbGVmdDsg bgFsaJzrTVjiMYsaP988 IHRvcDsnPkJpcnRoIERh rEO4TV41OD41yECjs5Y1 xGZ9B6ZcJZWsllas fusxcHB4TPTvHNXnnE23 Ow1evYwcDa4oZPScTHR5 SUQcsLFeX2EcuU5rIpUe BWYrWUSeQ0UtkVJv SDziH062LZokDsT9JORq srGsE6NnRAGbaKlnCoZ1 g5D7Qk7HI5T2CJ64YV95 bQRja2C5lCS6T4Lm OZYvpxmeqajyhLJ1ANUw DXGgsG06Ym8seYgrWf7d WVMeNLG5RLGiiFJhG1Jm rU6aHnWwOMRlNJWz A6SpyFPkVVxwE180FCkf QxV4FVJgpcJhR8CtQNFy lBdkIrL9x7Q2Bj5YJCo7 GM47LQ43sOFcz5H3 kWX5F3DvUEZrnrbivdfb tXZ0JDAlAVLahE25Wf8z yExgLr3xNUOkUQI5LWRc kJSeH1FecQ6kZmJn QAChIWJkO0GgeWEzOCso E714KLhgGqJ3JDDlltWf Q4UmQZOzqLikEwU4p8U9 Fs4XJCSrIF29RXJ3 lKV6MW29TR03Z9YoRmxb dGFibGU+PHRhYmxlIHdp ZHRoPScxMDAlJyBzdHls VX5bVj1fCWDcTEFo nQiipREfXsXdk1ipCOSb WLzrJU6qdIjyR1JoqWI9 KKGsa1u3Nh31X35sE4St dXA+TNFxaOF2bDO3 xH5wLzFmZvI4TMyoP403 VyKwoOOmUmokt1jzr5st pBd6HtJ0ADPqmkFgwMho OFL2f4QsOi04W32g IHdpZHRoPSIxNSUiIHZh wJijou5gqJ3pTf3+PGNv zBE1yJV8pZ7gWdBkKoX6 LJsgO793ZmLrzAWq Hibgb2bzk9qnvCs7HzAj KLIkmyBwzXppRBT3u6Fq Wr17W4SrfEzsk6XrWdg6 is20tWIgh3H4cFB9 C8SjZIJmswxdbSSfvIcv VW3kLGJubsatZBGfbJ5j SBWzB9z9QjEyPzY7RUam A7FwkpL1PEIasKTm QEltFQY5D19vx2D0TPEr VTKjPAP2qQK1qR5pcSvc bjogbGVmdDsgdmVydGlj RJpyBVaqY504BOWd bSatYYUltJ9jDEBkcHQv tCqwAO0aXYTzyamlDvOH I8YUX89ZBFPSA9PUHhPg BMgDAH74E6PqToi8 AQBdiCtcKD3hxQDdETms Xs9wuZmftDtsWJ3yVEYr gifoULKoqJ7eFIKmwCDs eZtvWW1xGXRyjqnv h574MaCgKCR7ATJvwLIj A2TzqY9lDwUnJCMnYGGj E5WfcYPqCZgwD831GQkc EgR5QYDpmhRpZ6Uf QLDqwYkmNwN4a2A4Ta7b SP9uAa8vDFZ9TE14SN63 wSVxn4M7qDJ4S4GzTMZp mjxhdawvhGC6YZTg VHVxeW03uWDoVRyiUj5b d1Q2o179KVNyADLikU18 Qk6zjDitAIWnmDGSaU3s iyjkf2uvnearUdHt VAGoMQv7YVp2IZSbyRdy ZoWqQVM5BhX1WBS0jUIq nS5oeVgvkqslfR2pJke+ TUHtONPfghN3L3Om Yde5FLEhfMdmAN5wlRPv BTviCp8tnTykmGnyOQ1y VUNbxskwYDGzrW3pOBBj eRAvuCtqSK5cMOPb qkosn986CkJeXSV2PKGq aRSvV9GlwY4eNtYyOUVp EAQqC0LmdDWeEGrmS089 KMgmPpN4GIXdisUx D8PaXWUdpTpqUsR7n0H4 Er4PNCpSAK86BK06xPXn e2R0pXK3K1BcRAWwgzdu erzbeVC9FWGhAAGh bW96kMDcJZedGq9ka9D9 m313IQTjNGUyfA66Cy5h pGtwIIVqiLXRbW2pwcyu s2okgiznAiPrNABu NBw6MPu2WEHqlMtpHqYq QNU2JtU5IHR4gAAzzZ7k bXmfsaluxT1xDqt+RW1l rlwvidJ9PY68SI54 S0FcFooqiFGpaJJ+PHRh YmxlIHdpZHRoPScxMDAl SiBqfRldIC2nSi3nQPUt LWNvbGxhcHNlOiBj p2lmAYMvCWqrZH7rnYlo A0NnoGK4SJLee3s7Tx28 B41aO4AfeUY+PGNvbCB3 aLV7rA6gJdEgFpM7 JLdyP109PyGqjSWpVfob v8xva3jjfVh2WnHfFNZa vkQgbMkvNDX4s1XaEm09 S66eOAxaFKVdCRCq SWMnJJNuyFheiv1goZ8e Ii8+IMXwiGY5gCZ8gK2z FrOeWkT2QKdfZ716AsGu jVOkBacvI29kW6It dXA+CNHmOed7TINunCbp XI1rbSUbXWdcZk5xRPO3 IvYfSlRdNEyrT8NoZKEv dybwkgrltPR3XIXx KOCkcO82Tq5psIcvUb5q WOVvDFV9UVYbdCBfV2Ze vL7jFaAvMMKdWXZfJ0Ts cRSyRYukO716VDqr IsX3EYWqzwQhH7XySFXi vHzeEqN3r8U2Yv8KgUqm cEPkKN4lGeHzLQo1I4Jo Voy3VJGgjKmtWJ6g fBQtSQuvYr5ewWgqrVuc QP0dNAHobymaa312RfUy x9frAKYwwJSqFMftVMH3 C51cj1H0DLTrXOWg XKD3cSW8xV6lpBncbudi bGVmdDsgdmVydGljYWwt VOlgH718PONudNixCtTE Xlj3K6TrHrn3ELVm bEuoGB4zrMWwHSjyJj9o kQtnlWtbKK0jPPSicnfa x369OcGho5mvOJOgtEPy OJfrOAA8T55fm6A8 QCZxKHDqOFV7cSO3eG1x bGlnbjogbGVmdDsgdmVy fKapLKbnMDqmC337EOFu gWtbHo9ETaf4Q5Vt Rbn8MVBtyRxiLO8gjKBu OIqoDg6zuOuwmVfdIM6t TWUztrcoy525YzEvq5ad IDEwcHQgVGltZXM7 P46fw3S9OXKoRPQxYHU3 bVZ5wR4ftYpkjdgbtJCm dDsgdmVydGljYWwtYWxp J894ZBMweAelXyBd eWVyOjwvdGQ+VS60xx88 V3CeSnyuVpj2WLXfQPS5 zHJ6qZ5aATRwFNxxe9B9 cHB1W1VrokLkqv3r b2x (more content not included)... Normal [facility] ED Clinical Summaryon 2021 ED Clinical Summary [facility] - Emergency Department [address] [place] [address] [id number] ED Clinical Summary PERSON INFORMATION Name: ROSA EASTMAN Age: 56 Years Sex: MALE : 1965 MRN: Acct#: Visit Reason: Hand pain-swelling; RT HAND SWELLING/NUMBNESS AND TINGLING Arrival: 02/05/2022 14:13:58 Discharge: 02/05/2022 15:08:00 LOS: 000 00:55 Check In: 02/05/2022 14:13:58 Checkout:02/05/2022 15:08:00 Address: [address] [place] [id number] PCP: Britt Penaloza DO PROVIDER INFORMATION Provider [...] Follow-Up: With: Address: When: Andrew Mckenzie DO [address] [place] [id number] Within 3 to 5 days Comments: Diagnosis [...] for reevaluation. Prescription is electronically sent to [facility]. Return to the emergency department for worsening symptoms or concerns, acute shortness of breath, chest pain, abdominal pain, nausea or vomiting, or any questions. DIAGNOSIS: 1:Cubital tunnel syndrome on right; 2:Paresthesia of hand Patient Understands: Yes - Patient/family/careg iver verbalizes understanding of instructions given Comment: [facility] ED Note-Nursingon 02-05-2022 ED Note-Nursing Pt presents to the ED with right hand numbness and tingling that started Friday. Pt also states swelling, none seen at this time. Pt states a hx of surgery to his right Arm for a pinched nerve 3 years ago. [facility] ED Patient Summaryon 022 ED Patient Summary [facility] - Emergency Department [address] [place] [address] PATIENT DISCHARGE INSTRUCTIONS Patient Information Name: ROSA EASTMAN Age: 56 Years Date of : 1965 Reason For Visit: Hand pain-swelling; RT HAND SWELLING/NUMBNESS AND TINGLING Arrival Time: 02/05/2022 14:13:58 Primary Care Physician: Britt Penaloza DO Attending Physician: Lennie Wilcox MD Comment: Visit Diagnosis: Diagnoses This Visit Cubital tunnel syndrome on right (G56.21) Hand pain-swelling ([id number]) Paresthesia of hand (R20.2) Prescription Information: If you have been given a prescription for narcotics, seek immediate medical attention if you have any difficulty breathing or any sudden status changes such as confusion and sleepiness. If you or anyone you know is experiencing suicidal thoughts, mental health, alcohol and/or drug addiction problems; contact the [facility] 02/06 Crisis Hotline -Text 5ZOXW dv [phone]. If you received any narcotics, sedation, or [...] documents With: Address: When: Andrew Mckenzie DO [address] [place] [address] [place] [address] Within 3 to 5 days Comments: Diagnosis [...] for reevaluation. Prescription is electronically sent to [facility] in [place]. Return to the emergency department for worsening symptoms or concerns, acute shortness of breath, chest pain, abdominal pain, nausea or vomiting, or any questions. Medication Information: The exam and treatment you received today in the [facility] Emergency Department were for an urgent problem and are not intended as complete care. It is important for you to follow up with a doctor, nurse practitioner, or physician?s assistant center manager for ongoing care. If your symptoms become [...] so we can reach you if necessary. [facility] Emergency Department has provided you with a complete list of medications post discharge. Please inform your sales review clerk/provider of your visit and for further instruction on these medications. Any specific questions regarding your chronic medications and dosages should be discussed with your primary care physician(s) and/or pharmacist. New Medications [facility], [address] [place], [place] [id number], [phone] predniSONE (predniSONE 20 mg oral tablet) 2 tab(s) Oral every day for 5 Days. Refills: 0. Additional medications on your home medication list not specifically addressed. Please contact the ordering physician if you have questions about these medications. acetaminophen-hydroc odone (hydrocodone-acetami nophen 5 mg-325 mg (Craig 5)) 1 tab(s) Oral Every 6 hours as needed as needed for pain. latanoprost ophthalmic (latanoprost 0.005% ophthalmic solution) 1 Drops Ophthalmic once a day (at bedtime). both eyes. Visit Information Allergies: Substance Reaction Symptoms Type Comments Bee Stings Drug penicillins Drug Vi (more content not included)... [facility] Provider Orderson 10-18-2021 Provider Orders [id number] #[id number] [facility] Coding Summaryon 10-15-2021 Coding Summary HTMLBase 64 BcjryulmCGb3nRj+PGhl YWQ+US8VLQGqG66gmPVh vV3LG8cZDP3NMRPLLJNQ SS9RFC5bnZI1CRrgY3Sh biAv KkasbBPyZV35VIy0QKC9 xBmzDPxvzT4qjZFkN0w8 YeHpJY86iJ17MQehXJYl DeV7AtKmdkivhPPc P4dhRcNknCUwPzo+PHRh YmxlIHdpZHRoPScxMDAl VwPlvFecYP7oKf8fRPEn LWNvbGxhcHNlOiBj i4tiSLCtFLszXD8wsFxj A7ZxfVS0JQWie6d7Ik66 dHI+EULjMYM9vHxsQFcl z681DnQhk5muVHQ6 hRDtRAhaULL7N46ed6S4 IJGxVPWfTAE4vKY1fR8m jZgwzlqjX0QueTGoBwW8 APD7qPLesL0glIzs hoeimE0pQco+A67IYM9I UAEJSN1GLjt2E8PjFftq dHI+FL50XCLpMW87kKMh zZAmp4wczWv3VuNs HHDmLRX1xWlcOLphn0Bf FBPdL49nwWKyz3W7WXWx gDzstGBgPbBwhUR4fX0g VWhfthxga9uwuqax Eywzr2faxg63nL33K70f ECssQTEzGGK6RJWmRUCo aYcwtj7dyG2kHs5+IDxj g3rae1oruQh5XcNo FYVloiYshLngBHZ0a7Wq Gy37W7FopGbvf4VxKus4 kp98iDEuc5H1cSK1MWrn QJSddZ4hJIwkHiP3 CQLhUvFbfH33fRDsPKap Zn5grIjndWlnKI7hKCXg qrabJKNupB0cTOPedFHi sOqoAF6wUYQtxvvu b731OkMmLUB6GFUufBPb M3GgkW1lDqGkFNKjJERp K0QmmXTsEMwhQ419UFpf QuX5GVSprdTwZ7Aq VVCurPaeEcX3i8I4Fg4J q9OdvbzjUCZ0MMufWUSb DjC2HtSeWcR5G2IzAbq6 QEUqjYxeXX4uL3Gi RHBsirrbvfodmIF6HZXq HPOicG52zTOuZKxuIv2l g9U7x383TNJzSQRcrX83 Ae9zfFqkVEZgpKAM vB0hendar5cocqgxXsNd YPZqXUu5ZVc3CWRgeVnj DsNvULJ0SbO3FJY2zWQf wE3uiHaavtxltO1m Oyc+I69jpW7eOKL4LFW6 oqcgLDFyniPuVF46IV35 A9BkStgctLCycVQ+PGRp rbLhcDksUB2wDkTk s7uas4RqDGalQ8NgEJXh DXtyKmj1IWIqFTN3zSK2 gE9hUOTuEMpin4I4eVH6 O0QcizHcge8hg4ql ARYyJJnxX52xfEJrh0Z6 UCXyvQC0RUOhjMrmAvJz eK59Kes+DTPglSqnu0Hi Aycdj0iyp0hjpGa6 IjMwJSIgdmFsaWduPSJ0 r4TbVb83F31kAZbfGCHn TUZsNPDrSGWkcGdszk4f eG7mWs6+PGNvbCB3 xOE7bE7hWGGkMmP9WXxa W725LfQdzGUsNnpsk0lh w4uocDc9TpMnBDLbqoFv cZrcDQQ0d9WrMp29 L62tSHuuKWTtUEKuHUKi GJQyaKboiv0mfJ9uYx4+ JM6zf3asln22wL98xFH+ SYAkSVI5uNykSYjc ZDPvyP2gTIyvSuZ2YATf HrYgeU66tTIoCSjyPy7b bQqbyYioZM0bPIMdtrye a092LqMlm0ctWCHy iDZyKAjnKLN1J23do7C5 FEOjJUPnUHA1gKR0vT1j bGlnbjogbGVmdDsgdmVy vXhePJudQTjzZ795 IHRvcDsnPlBhdGllbnQg CnQvSUu3E4LiZrd6MQKi nAknEO3geCBkOFdwBd9g sObygLsuGX2rRASu twwlc643IsLrj5ucLRFw lNJlOVlxJQI6Q94ch0G4 FCGhUDPxDFT7bDN5mR6v bGlnbjogbGVmdDsg fhMugWjpETtzAXvmN381 IHRvcDsnPkJpcnRoIERh bHN4KE03DI25rPDoq7I0 gBL8D9TsQCCdfbvd dhatfRL2LNYjOLSktR00 Ra8hhSauNg0xNBByVTS9 PAZwpAWnV3NviJ6dAsGe DYStAELoN0ThrQCs TEbdV736PBhlRhP1ZYMz nnCaR3YrKAMrsLrfVxQ1 q5A9Tl7MY2E0TX25OO61 dAMnn7Y1gLX2L8Ex WCNtikfhlqxkrWZ5XCZf VGYvpT27Df2joJjvEb7p ZQEsQFN8CTXfkIWjP2Ek aF8fZhXmVSPvAKZr P9HnkWSgQLktB274IArf HgT9GEZmawLbA5AeXRRy kJwwSvH3r6D7Qn3GGOs3 PX30VW53nOXrj2S4 yEW7P8LsPTTzanpvfayg pTM7ZHXuUKJibZ17Qn4d pQnzHl8pNNOjNLF6ZDAy wMPiH2QsqE1xPaCr PIIsYYUbK3NprAWrWKtg S261IVfiHiX6TEAyukEv G9TaHGWpdZjwSdW8c1X3 Pl6LCMOrZZ58GRG0 iLM9OO75DY25W4OqUzfi dGFibGU+PHRhYmxlIHdp ZHRoPScxMDAlJyBzdHls QD1wKp9nYUYpDFNn aLgvrIEfNpJsb9ncPJCi KAnfHH2ekMsyX3IdbLU4 DPDns3d6Ex31L03cW1Jz dXA+QRDxtXD7aKQ0 wB7gRdTaZgO4YRjmO417 YyMgxIThNmtmd0gzu2nv fGm9ByH5SPWvyaYdbTwc BME0m4DtXy24M23r IHdpZHRoPSIxNSUiIHZh dDlnuo5faV8tWx5+PGNv yXR4hYC0iJ9qRfKvEpF2 UYsfR236DoCiiSIp Hblgf2wms7upaRq2XhRt MYHrzoVhdWkjIQL8t4Lx Rs67R2MvgPdtv4OqCfg6 py04aWPwv5Y1uNK5 B3WrFDYnxiryeCYesHtd NR8jNMJdofhkPLWuwN9t UOPgP2c5EiGaBdJ1JZsq H2TwndJ0ZVEejCLa QSwgMAJ1K41me0Z3VLHl EHCaSFC6xZV9iI0icDko bjogbGVmdDsgdmVydGlj ZFxlGVhfX994ERYp aHyxWMVbeU9lCYZleCBx yYhkFW3uUKCijwiaWuLF J9WWC57ZKGLGL4HTSyAo AGhOSR70G3LuJwd7 QCEutOelRK1ceTBvLFtl Yr3uzTvmzGnsPR4oOGPy hjhtRVHguC2sOGCbeHJg eNdvJF7iORIjnade j858UbMuTGZ0BQTolFHt P8PagY3wVcXpEDCxIZKx H3MnaUWoMZagQ886NAoh RnE3WBDypwSyW4Js DSFuuLznDrF4y1Q6Vo3c TI6fAu2jEBD8LZ95VM03 gWRyh7T1jDL3R1KeZZQq tmaptfygnVD0QSGo GFAzgM19pMWlXMyxKl7p k1U1j437XLDmGCEolQ58 Oc2qwUrrDSOsgHUWyF0j uzalo7tndygsUrAf EPWmOVh0AZm5DAOepGxy RnPyJHQ7YaD1DVC8wWHw eN4hlUgwocbmcE7kKun+ LEUxXROfbwJ1X4Kn Knt2VGCjeDlpYA5izHRt RPkmOo1cpBjfbPpsSD6d TPXydinxDZVjkD4zXBQi hXMccXxoGK4lWWSq yqisa006YzYiEKP5KIWq hZDnL6RebK5rDlCjTSQd RRJxJ5YeiOAuQYwcA742 XYkyQwH7DASajpQw D6FmUSGluRxqUiC7h7K6 Ar2UMUiYLF01RU12lFKu s8B2xPV2Q9PuDLLgrdkq jepxrSI6YWGpZVIi zZ53tKUrOVpnJc8yg5V3 h410HETlSLVuoH14Jr1m pCluYPMlwXQIlO3swpag j4sxyjnaNdAaLBOk HAv1LCq9FGZgbCtsSxSn TBE2LtN4FIY1gGAvwZ0r bVwdiwmtoG3xWux+T1A8 G7PeGkzphOA+PC90 QWEoNE08cTZksNMfi7ar dJr9FpAtIKQpKZH1zDss XJlog5DaRNJyQ24qeBCx x1X7HCMgxOhewEYv LhNtaEG7sN1oPLkwvyqj y6wwfxazHxbcm4lysm17 bX86D51dNPhtIZSvFNDp CAIpDTPonNtzyw8t bD5fEq4+TUVqxWL7sVZ6 cU1hGfWvQxY7GJqtR623 LwHvpBDkHkvqj1vbg3gr pFq7RdKyWKWhwqXi vExtUTJ2q5UzPe91N01r IHdpZHRoPSIyMCUiIHZh vScrqo4vsC1lIu9+PC9j i9yexm56sZ83kJA+ NAGfNBJ2iAgjAVypMJWt cO6bIBobYkG5OQYgQgYa wY96mJSyNLqsVx7ixOhc nNexYX9oWUZklxty g049AmDor6ndQDOmfWOk JZbfGVW3H22rl6J7KTRu KNLcFZM8yJR2rJ1iuOdb bjogbGVmdDsgdmVy rTdxQCmaZChxY583WZYw tLizAsWoqSEcZ8zyhoUF NX2qZilgmUP+PHRkIHN0 bIbbIBdsLCTklY2q JHZaT8k9XiDvGlT1DTnz K4ZwvzQ7OVKpzQGqSTCw sMWQdC1xniwep7ahfhnm KxJuIMAiJVg9STz8 PIDpmDwoSaWgDGZ9MqQ0 ABZ1sDKtfW4ikFyulypf gG5wEoy+RklOOjwvdGQ+ YGDbRAJ2cNjdHWrl WVWgbO6pZGDvW0v9AxOe YlT5GDkaP0LczjX4EVLz wMHsOLJlkNYEaR9lfedf x6oridhzPeZdXNHw AAa2FXs1GQRkxKqiRbYa CZY0AlL6ZBU7hVTwoQ1j bBsbkgipjU8qEzc+TVJO OjwvdGQ+PHRkIHN0 vDjhLYafVOMiuM5fGZJq E6g5OzYgLaA6ODsbO7Rh dxR4FFPgnKJfCGLkvAIH tI3qjunmb2jsgkjg WbJnGBWoBSt2RFa6UZTk jVcaSzKoAKD7KgO7ETR0 mQZpxK3drEdskjmyhX6u Oyc+RIP2ZIA0GL15 CY36X6PbDirthIVlqXV+ PHRhYmxlIHdpZHRoPScx AQNxWxDrfFvoJW9pQx1e ZGVyLWNvbGxhcHNl OiB (more content not included)... [facility] Rad - MRI Reporton Rad - MRI Report [id number] #[id number] [facility] MRA Neck w/o Contraston MRA Neck w/o [...] Torre MD 10/12/21 7:46 am Technologist: JERRI Normal [facility] Coding Summaryon 08-30-2021 Coding Summary HTMLBase 64 UklxjoizYVj3pIq+PGhl YWQ+UQ9GARCyF92yuWDi hG6HV1cPPA1QJEBVFLFQ FG6RRO8bfCP4UCbwO0Lj biAv SxdrvZXhBE92MSe2INR6 rPhaJWutmY6zbLTcK1c4 CjOsLX18cV33CCgwVSSw JeR6WwYsbgkdzGNj Z6mjLeYvbBGqIxf+PHRh YmxlIHdpZHRoPScxMDAl FeGzhTxtAD8yYj5iDNMp LWNvbGxhcHNlOiBj f6uvRSLhHFfjHN1aiVvj L7IdkKW8EOQgw6y9Qj54 dHI+SIZgSOL2mQalWSuu w790KxMzk4jvKVB4 qANnREeeZOG2V58nd8F1 VEStGNAcLWJ1zJN6oS0j xSlxvcyfJ7DaeEQcVyV2 ACB3oVAstC4nkQxu gnhuoZ4eRwv+I12QLF0Z FXNDXL9CCtn1K3ZtAzvw dHI+MA75LYWiKI02mFGq kECbo0gzpGe5AiFf VMIvNWA4yAydWBljp1Av MBYaX13poTIua6H3NENj kTpqqZJnVwDdgQJ6cS5f RMsyzrpoj0bbxrgl Jpjkj0tanw00yY02J50w OQapYNGpSVY1UYHfUZTe hNmzat0hxQ8uHx4+IDxj g7xkd0awsGe9VkIv UPJpsiIsjLguPVD4j6Ul To04A9EqxZogb2GaSpc1 hk81dMAhc3X4jJO6WJqt VOMxpN4kRMjuKqG9 CJAtWeUeiX90aDOcPYfs Iy4nfYmbzOevJV0gEAQw vhgwEUTfmV3kECIinNXi cZbkDA8hWHNjzbaw i844UxOmLIE5BZZcxYSn S2QwxO3gCeWcPVNhOWAe C6XedQFlSKepD268OJdu HwP2GBNjjlUzC2Jv XHXciAuxZjT5d1W7Ko4G w0HaujjwWHZ7AZjfBMTc AhDgZgPjQaE6Q9YjOao6 EWOwwTgiXE3hC6Yl SLGfzlzlhqqldWB0IFLu DXRhaZ19sYMfPAzwVf4v s7V1p579ZDNzVNQadE07 Xf5ouRzaZPTguZUI oT4dlvhgy4yukhggIuTe VVZeQVq3DXk2CYLjkCky XeFsQRD2IaM2LJD2mFMo kU8yzJpojgdwcP4b Oyc+T60bmT3fFEA8CTU4 hfwoPNEiwqKcWT95NQ52 I3UjAdbnpXJkoMV+PGRp bpNbfFoqQR3tVdNb n6wve8LkNQzyM2ChPRNu TGpjDnp3ZCLqXEG5fYF3 oE1iAYGpPEloc5Z2xQL5 M1ByihAaeg3up4wx TUOfDDqxV87ttRVbd5Z2 SDPmhIF4BDEniLltCxVx nJ51Phe+RBKdxFjmi2Yh Qrdkl2vxd9ldqFs1 IjMwJSIgdmFsaWduPSJ0 u5LlOc87X05yPUrgPMNe DWWoYOHyJGEygOsxwg8x iA3vOh9+PGNvbCB3 uIU9uR7eZDJeOnV5HLdj Q434YzMyrLOsIbjny3sa j2nrcDf9XzQeSLEutvDo aDgiVYP2f1KcPo51 H35uHPnnUEQmPFPsURSq OMNjhBftlb4fpZ4eJa2+ PC8hi1vjfd98iA34vJM+ FDUnIHV3xIudVJkj SUPpmG7dHAzjHiM9RQOv WfAfmC38tCBlPIlzXz8p gFcbjWovWX6jHCCoeril i240KyBdr8rdMLMq fTNlNKdvTPB7M91ze2I9 IKXjFMGcTYF7nRH3kG6h bGlnbjogbGVmdDsgdmVy rFsjQNwcPXafL561 IHRvcDsnPlBhdGllbnQg LhHyUPf5U9LaNii8GJUo iLleJL2hnVMxZZfaEl0a oFfsdUelBK3rHAHj wverv023GtThh5bwAPXh zEYrSMvjDNN6E87oa2U2 ACIrWRIbSSN2kPG5fG1e bGlnbjogbGVmdDsg ofDmvAzmAAbqNRlrR153 IHRvcDsnPkJpcnRoIERh jXT6JU54ND71hHUdg1L5 nXI9H1PeQDBlxcxz quywxEN3SJKhXUFkfE98 Yv1upLkwJh9eEWXyOIK9 UJPdbTNuE4JihT4cPmLh YELgJOUdF3CbjKVr DLpqU814LGfnTeL7QWYy jrLwB9SzFAPxrQfgFbT0 u7G7Wv1XG1U1XN06CD05 qRYgi7H3tEL9V9Ue DYAwgslsznfcrGH1ULCl AKJwkP16Nj5tuAitRi3n NEMySYM0MAWqaSZsU6Xc uW4hAcCxPGQfOAOx Z7JomCWgKDmlR465MDdp IdL1ONZbbjRyD5TcBRMf dQtlZvV4v2W3Jv6WWSv0 FM29AB62pJNhf2Q2 kWM1T5NgZRZbrzuvtbfg iNE2ODJiQUEwvL15Ez1e vJwgIg0dVMSnWXR3TEIs uEAtW3QytC1uLoKu BSMsJRJfT6CheMDgDZfk S306BMpwFrF9NJObfyLk D2CqPNCxjPglKkB9z3I3 Qy6BGCKiIZ15PDM4 mPS2PT51AN75S1VqKcdj dGFibGU+PHRhYmxlIHdp ZHRoPScxMDAlJyBzdHls QJ8qFd2uGUBbFGRc aRbarJXqRhAkh5jwVWTq MYbfTF4hdCqkS8JocER0 PTTec9q2Gw81W07pP7Df dXA+KAUrjVP2pVV7 iE5jUzOoAsJ2JHnvK840 ZeIajNRgEkbob8pge9it gMu1ZuQ2QTOseqMxfIjn MYU3c2ThUp58Q75w IHdpZHRoPSIxNSUiIHZh jYjiut4zaD0dFl1+PGNv aWF6qKQ1vK2qGyZyXiW6 BYxxG155MqBbuAXx Zsfwb5jtb1hfkFs3OwDm AGQmreNwmOvlKAS0z7Bh Kd72Q0ZccPsjx3WaQat6 nz91hQFxh1A3uSC2 B8TfCXUgzvxzzUHbhBnl UR6fLBGknzfdJWLiiY4g SGJmT2x9WlJyVzR0EXlb Z3MfuuM8ABXeiYVk POnxEGE6X57vd8Q4ESNq TEUoEKM3gQX7jO7wlVzi bjogbGVmdDsgdmVydGlj VLikPWwoK251UPKp qJmjIBGtgF6xTSXvnFKh vJqxJN7gIOJeycfzPrYQ C2KBK85ZLRMST3PCNoWx ODdEAY04H4ZvUbh7 SGIdjLiaFJ2tmJPwBGgf Be7joAdqmXvuLK8vIHAi hifqJAOffW2pAUIrvBEi zVbhOI6mBGLmntzs f379VdPzFAP2ODEjrLOr H2QnnW4iRaKnEXBsYNBq A3FixOGjURtbX838BUpv PmE1RGUuwmKtR4Gi VTRkaQuaRwY1x0Z4Cz2l FX0qZa4mUAV5UM55BC63 wQFxt4Z6nHV2C8VyJUDo iweszokftWP2AEDb STPwjP75dPBnZFqdVo0p i6M6h831RXZvYTMjcS85 Sf2gxRapTGZjlHMFxP6f cucfb1jfhjqfNuIx RYJuUOr7IMs7KWBitOom VvPoFCH3AeQ2NKA8zZIl xA8exWlvoipzwE8sUpw+ YXKhBNZmhrW6C9Gn Paq4CMTspFnbMU8wcKVy ZEddQb0zeBcnoJjrTK7n RKOhfswvBDRwpA2mDCZm pLMioEbsFO6qRUGs aimjl466TbDqPSG5RHVf oBGsE3YhbC4uIkUhKJAj CEVpB9EqxVCgGDguH153 OFjvZlL2ZBXrewCd Z1DsSWOxaMzxZxK0r8P6 Va0AXJoSRO29DF28yJPn d2K9hSD3U9QvFHNbdtsy hpjsgWZ4TCZqPHBo nG82jJUnEEojCv1fy9C3 g213XJPjLVZzsQ00Nm8j gQweVDCjqCQZzH7siyiz n0hxoumjZaTpKCPa DMk9ARg5DBPkyKcmUyJz OEW8XsE0FZH3dUAtgL2m wXwrxtqcnQ5rLuy+T1A8 D0BeNssazXS+PC90 ZAFjNT50lDIvnEQfv5zd yRj3RdRvHBCmTDU8lGzb LYcpw9WvDPKfL05fgDFm c3J5COKgdStkmUGz BiVzfVO2vA3hRVqowjei x0ionjwsKxdun5tcbu72 aV34W92qTUfbFJXqKYQq HBLdNPUmgZtcoj6q gT3aWc7+RNHpqBW8bYK0 nY9yIcIeAbE4LDovH735 XhNdcGHsRekre2zie5ay uXx1HyTfGVJjemDc xEivEGI5o8LrDs55W72e IHdpZHRoPSIyMCUiIHZh jKodbo4bwB8jKn0+PC9j m2zigz75yP67lJX+ HHSlSFA2pCfmSVttBCPj mM5tOVoyVnV3YHXzZcAu sT72kWPfOEikNw3xjOqr mSnkNZ9oFYOwrxgp e418UaInw6xeWBZwfLTv XEadRRT9A06ve5M7GEZq LIAeHTN0kDU5rR9oxBry bjogbGVmdDsgdmVy vRhdTGdlBFxfK696LQKk wWpmBoMzcLOpS4zzayOC YS0yPhrfuDW+PHRkIHN0 lAqaDIyhAEMybC9m AWRbD6c9FpWjLaJ1SVew X6WvrcU0JXCqdUNnGSFs nCCJmS0btooac2pzugnw DkYuFMToYLb9SJf3 JJGouOkaEkWnFOA7VtH5 BWP1eMBldK7ogCfmftot sC6iEoh+RklOOjwvdGQ+ WPRcRQJ9lQutLSfs UJPvhQ1fVEPkA1x3TkLs OwO6OGolY2EpwtW7VIOk xYEyHFOiiYHUrP0haszb g5twrmugCkYyJOFq HHk4JPd7XSUraVudDcHe JBR6CtH7YWL9lWQunH8o vXpmaimsbZ9zLno+TVJO OjwvdGQ+PHRkIHN0 pJtqQDibWKXaeL5nEZKm M2z1QqRiVrW2PVknE9Za cgE4LDUeaMVlILSatHUC vS2oftkzn0gurxxl NfVzTEAtDMk3MXh6IGPv dPvmLyZwTYY4AtO7DKB0 fMXblZ2dtSwalasoqD9g Oyc+ADY3XGW5TV38 BY37D2IlCchbeGDkvXB+ PHRhYmxlIHdpZHRoPScx LACtEjArrOudHF6rUa7d ZGVyLWNvbGxhcHNl OiB (more content not included)... [facility] Coding Summaryon 08-29-2021 Coding Summary HTMLBase 64 FbqdxlmbIDd1kOo+PGhl YWQ+CO3VXKKmD29cwRWg eI6GC9mDCM5PLZWBXUSK DT8YZX1vkPA3XXyjN1Cp biAv IilndINjBG23GXu2OUG5 tZxjLOwxwP6lqJMsD8l9 VhFvOB89wQ20ZSdzCIHk LfM5HkRkiaxprEKx C9pnRpDuyYKtSoq+PHRh YmxlIHdpZHRoPScxMDAl RxMzdWncVX1zDb3nCQAv LWNvbGxhcHNlOiBj w1guXTCpSKwzDZ3axFnr M7NpuRE7MBClq8y4Jo97 dHI+NDZuSWJ5bIajWYqe u511GgPkb3ydGLV1 fKQhQWufGMB9I61ac0Z0 DXFxXMNhOUG8wGO6cC7j fYiktjlfZ5DxeUVjYnT6 CWM0fTOvdM2mgNrm rusaqG7gFiq+M27FZP6T PLIJHJ0IJxy9N5HoPsoo dHI+PB16DIQfDG72tVZy xQZbp0mqzCc4SvDe GOUbGYX8aLljPZgww2Vm VQEkR40kxEHnz3U0LSUk tRzkqQTyGtCmxNX7rA0o PRbfroqgd8bqeqdc Ohixf0dysv27rY22E69k OIzjJWObSSU2UISxASQx cVqqly4xtQ0lLb9+IDxj q0jzk6jpaPh3TjXt MSBkreWjyNihTNP5i0Ma Yu30D0UqhGuui1IrFbi7 iy50sDNty0S7vTQ4DItp IWVbwY0aBZumSeL6 SXQfWoYgmQ46eWZdRRah Jc0fjTwkqPuoID9tHTBp pvtxLDRxvP2uKPJvjTKy tUweJO2cNYBwfdts l263FkQiWFE6ZYUhxOKj A4EaoH7rSqScETTkUWSe E4PtfEKsVBlkF948CEzq JhV6OSFvxxSiO5Pb HIFslPzpHvO9a3S0Rq1S u1AqngrpLPJ8HDcaNORl SuIiKvKxXyC3K0ViBuo9 KBAepRrqJX2gQ9Nk RFWpxouwwopkeNF4MJDp DJTatE91xZTlMIynQb8i e3Y6w473IOLjWBQboT56 Jp8fjZaxPEZwyPSW dV1zqnlty4exiefqIuYk CEFfINr3ZRa5JNZupMxj MwQyNFL4VvP4XTJ6wAKe gH5djZjydgieeQ9j Oyc+Q35pgI7nUFG0HYE8 vdayDUWflcGsOO07FG13 L2HeBujroWXsvHL+PGRp ubLwxMdtEE8zBsVj c9wur3HuVXwdB7OkMRUr ZDavYij4TIFkJKE6gFQ7 nU4tNDOjABpcv2A7wXE3 T6YgboCdhz1ia1wn LOTuHPuwC54dfIDbx7I6 RCRhqGM6SJCobWhdNrKk pP30Fxc+BGEvtBirs4Fu Fchpy7iiq0czpJc3 IjMwJSIgdmFsaWduPSJ0 q9CyRv27G61sEJnvUSHs TBEfZFIhZAGymYcafa7l sK5tOt3+PGNvbCB3 aCF4zE4jFMIvAoT2ZOeo Y964JbPpzHBeMvvnz3yw f7ikuKa7VxDcQZOclzDe wOqaXJP7w3OvXb20 S18zFKfuDTEqAFPkWYXe UARlgFlgmp3brC0tAc5+ BO9wk3cprn54qD07yFA+ CQQkGJL5nQdwCMba OKGlaJ6mLXovQsV3UQLo JyQkhT12hYDsUBntKm3u uUvooVxkDR8xIRQzpkjm v425QqRxl2jwHRVm oONdIWxmYWB2M16oc7U7 JLKiEVAuIKP8dVQ0aD6s bGlnbjogbGVmdDsgdmVy vJptDWavQGuaP808 IHRvcDsnPlBhdGllbnQg PoNjQSa2I6PpDqv3HDWa rCfxQY9xzPDoLOjvYp3k oTczrRafRM1qRCSx acwlc763VhIda9vzJTGn xRQxWHjrANR8Y17nd9A5 GJPdPSHwJLV0pNT0kQ2c bGlnbjogbGVmdDsg lkWruDxnXXlhOCqpZ440 IHRvcDsnPkJpcnRoIERh nWX0XF91YY94tWXlq1P5 uAU8G2MqVFZifyre wbpddZF4SJLvKAVpfW95 Hs5sxWauBr4zSIUkFDQ1 ECGbwDUqO5GakY3rApBf TAOcUPWpR9RyiEWb ZAjbV979AEjpAcW3AVIp dzLtF9FdSDIohDguJkE0 f9Y9Uz4ML3N9XR59QF48 zAFhr4M8xYM2W0Pa IRPvsdtpmctaaPJ4KXTu UZRspD75Ab6xzTxiXd5g HUXsZAD0HVUzrMVnM8Nt wO8lXcRiYGZhMGYx D5ClpSRvKFmiJ610FBvp DeK8OIIjmnEaN9BuBUPb zOzwFfE2h6S3Wy7UCZb1 HN31BM96wNWty5K3 lLI5T4FfAWXjhxjsxgwc uLX5NYDwIGHmvI62Nn7i jQqeKi7aIOIyRPF2TOZq bOZmR6ZxlC4wJpDx JQOxVKNjB8BfqGWxEAht K072TFzaQwD4BHZrsxDt W4LdWUEiePivCzU2m0D5 Ov7VPTRfSK29HJE6 dPF2SE79JJ54F6WqKjim dGFibGU+PHRhYmxlIHdp ZHRoPScxMDAlJyBzdHls KH4lDy0gZGJuBLGd rGavpPIbXtGqu1mzQBJr CRmiHR2tsMlhR5RwsTV3 TKFcd4p3Yu07J08aV4Sw dXA+INLqiGZ5gJV0 hH1bVoZiFuY5EXuvQ071 YuNwfRKtOsogi8ilg7xx hEw5EtN3OREikwPhgLxb UTL4w0QvIb97H51c IHdpZHRoPSIxNSUiIHZh yGuumv6noJ5fXd1+PGNv dXT9qUG9lC2lUlJjZjD5 CBzgV368NdVrmKEp Yynzq7ley2aoyNg7EqQh SGJbgiYtyIvmVED1y9So Yv65S2XikUohy7JtIju2 wy27rPSpm1G5jRZ2 X0BfUHKyamumvJUilJif BW4aWEJapcqxYAYacZ8l EYRnT5l6JgWrCpX3QXcr B5CerzF3VPPhmOYx XKdoLRT0Y07ku5D6SPWz FWBiSDN5tYP3rK4lzApf bjogbGVmdDsgdmVydGlj LBhsBYvuC532FTEs fOelBZFpyO5lWBUboRTf qIjiIE9uXGXmrmniWgST S5WIA62GDBFIB0WPAgLm GMcQIZ74I9XmUop1 EVSnzOdkSC4noGDpGUfl Ep4naPmoyNlmJJ9yLAXa vrrzFLYmlO1pZFCbgCZi eJrhUL4lVGBpporr p628EqHxMSC8ZKIyaMQu D5YaqJ1eTnUfZFVkRPTa P8SgrCMwVFiyT858XSrw AbS8GLPatfByR0Nf UUIglJmsWjP4x4J0Zf7q HJ4jTo0fQDX0MF09CJ51 jCZzw3Z2rJL6A7ZsLGNl cpdznvefjOB7XTAp UECjuW09fAAxQWicJc6n j1E4a263PVSkNBFfiR43 Nd3gdWcaZFHxjZPSoC1f gmnit5acxgboOiGp IPKqSYn4PNs3TZDxoNmn IaTsIGM7JtU8VYX6hFDg uU3riLmptlpbwI8tYoq+ HCTtPRVgeyX4E0Wr Emy4FQTuxBebDC2lkOMq CWevWn3noZebeFbaFC2f JGKzjvlvKFXvsZ7wGIMd lANjwBwxQC4qNIPm omcbb395PpWbDCK5LJIz yNAcZ1BhxC0qWgTlZIHz TFLgM5PcmNSvLXnfD891 PQzmWnG3EGFdzqMs D1AvTZWseFliNnE0d5T1 Cs9UFXaKLP92SJ45xQBe b0W5nYN1K9WwVLCawkce sezolHF0WLCfHXGq jB01lQTdINieBe2eh0M7 m660BKPsASPthU40Gd7c aEeaIQBcjJDMrQ1kmfgp d2dvglhjKhRqCERf BBw3YFo1KGDycFwgFuPu NWD7AoZ5LIL9qTPovM9o xNpfdcoojL3qJci+T1A8 D2NvIclfaZC+PC90 ZMYzWK90eFDuyXJqw7yj tGt3ZcXnMJRwVHO4kJzy QMows3OqJPZxQ48mmDWd o4Q0YGImrXzaxXRb VeGlpRE8hV0gTKzchcmg a9xgkjbkRzcpd6fozn05 iH72B62cXLdxIETxYMOm OEFrDHUwnGwcto9f qB2tEh4+BFVlmZP1hKY2 iP3cTyDhGyV2XRjcJ841 FmHbbPFyMmjoz3ydg3la hWl4ClSqLXHtppEr pEooQNY3p6RoHj51T48a IHdpZHRoPSIyMCUiIHZh kIdkwn3zwH9hSf0+PC9j s8mvsc85oN36aRQ+ MTMvGMG1jTtcIOhdUQMb pE0aZRqeZxH1TUCdXfZw yS54uUBqPZzsXm3acJsg tGmfSA1oIKQeftja t796QyFxd0biLBYfrJHt NHkaPVR8P23rq5J2IRJq EBFwWHG4qAC4kB6zgPln bjogbGVmdDsgdmVy rHxaVBigEVvoJ098UNAy oNktEkEajPMsP5cfguOE AA8aPlmwrSC+PHRkIHN0 cVexKTnhDVRybG5c LCVwM8e5MbKbVrV7VXao Y8AvkhD3WTLdfQCxMVHm pMNRkN1wtgxne5nyaepm BzVlSTXpHPy7KOr2 VSYxwScdXwSmHBF7FtG2 OWY9tHVolX9olDldorcn tO2eMen+RklOOjwvdGQ+ HGQnJFH2eFlaKHxx TMQghP8rESWiX5j8AgPp MgL6IGatH3XouuD3AUKv iGNvPLIjcFNShA9liktu m6iwkthtFlZqYCAa RPj7TCj6FRJgeXgeFiIb GVD2BbR5VPL8oGRaqA3y rUhbkavyxT3qGlt+TVJO OjwvdGQ+PHRkIHN0 wHktCLjrEPZvxL7cXFOa D5i1XiRzXcY5MYgnK6Zk xeQ2NAAtySQpBSRhrORT qE0zrmnxp6ixmxpm SzKjIXWoRQa8YVu2OOBu kYxyYqYaBLC1CzH8DXY1 eRFhuP3vsGnedoibhB1p Oyc+DWN4EAN6FA14 ZG27E3HsVbcxxETmwOM+ PHRhYmxlIHdpZHRoPScx WWLhKwFnfBguRO7wAd2z ZGVyLWNvbGxhcHNl OiB (more content not included)... [facility] Provider [place] 08-29-2021 Provider Orders [id number] [facility] Rad - MRI Report [id number] [facility] MRA Head w/o Contraston 08-10 MRA Head w/o Contrast MRA HEAD WITHOUT CONTRAST; 08/27/2021 2:19 PM EDT Clinical History:LOSS OF BALANCE Comparison: None available . Sequences: Axially acquired 3-D gradient echo series for the purposes of tyke-bm-xqspeo MRA. From this data set multiple volumetric [...] Deshpande MD 08/28/21 7:28 am Technologist: JERRI [facility] MRI Brain w/o Contraston MRI Brain w/o [...] Deshpande MD 08/27/21 2:50 pm Technologist: JERRI [facility] MRI Spine Cervical w/o Contr indu 08-27-2021 [...] Deshpande MD 08/28/21 7:38 am Technologist: JERRI [facility] Physical Therapy Noteon 07-12 Physical Therapy Note [id number] [facility] [place] 07-31-2021 Provider Orders [id number] [facility] [place] [facility] Provider Orders [id number] [facility] Coding Summaryon 2021 Coding Summary HTMLBase 64 CblrhakrUAv4mXs+PGhl YWQ+XW8UXFMmZ30uqOFk cP4NC9uGWN5GUEPLDZJA VN3YJD3bpRP2HUppU5Hk biAv StfqmTNwIJ71BVu1HSN9 mJmvRMubtX3ysCFsV6y7 EuQeBT91gV44SByvSZEt NqY3SxYibzjvtXBq S4qiQwOunGDwCyb+PHRh YmxlIHdpZHRoPScxMDAl ImEzlPifSF4kLt9zNGDo LWNvbGxhcHNlOiBj k2btYAPjEFoeLP8okDmr X3TvjGC3PEUsg8h5Yy31 dHI+BHUoHPE3yXvcCUkq w097UdQql4hlPFF0 zLAhFUkmJEE9P66rs6M5 ETMwCPNoSIU2wGS3gN1i rVlxcybjI1ImaNGuWvD6 HFG4bZZhlJ6mjGlc tcjasS1dZco+W95TGH1B JHKECI5RCna3U6MiNscr dHI+AA60LBEiZQ35gTBo tTRok4bklAt2DoHo HCDkOWP5aEwqHXdae3Zp OEPnJ23clBXdm4E2FPMz qQtdwZWpArDfeCR7xO1b VGhcltrou1jwiabd Kppyz4isfp90kW61C23b VRkdTEQcYNK3LCLcZOHq dJhmrn6rhH5iVw1+IDxj k7lde2atnJj3DzFq LQOrzoGcwVvrGYV7v7Gk Sr33C4MarSjhq7EpWwp6 wk34qDBba9D6iGR6GSah LNGsyB4oIWpzAyR3 UJHxFzPyyT93nKPwBYze Md4pbAqvzUqaUC4dOZAg vnkwRAAzbW7eQBSlrMDr kYcwER2hZYBastgj n079GtMaRED8ZBEtgEPf O8JwbQ0qIhVwJOPoTMIr G2VrlBCgCVayD636IDrn JnW9DZMbmnOxS4Pq WFBxxJfqGnK0k5C7Xv0B r5NcdtpbRIV1WNguVUL1 WmE1BvUvXdZ6G8YeAsd6 JUAfbIdwHU2nR8Py TYGuvmkmsbpqtHO2LGOh CDOdoY13vFDgKRnrEv8c h6I7p774BBShCXFngL46 Uy3ktYpfNYLnnFJJ xJ5mflxkw0bagvmtVoAc PZPnIJx6TVq4SSNagZur PwFqYDP2ZvU8MUH3pTNi eE8ouBlgdmsybH2n Oyc+L61yqX3xGPI9GPS9 mvqqKDVtfrKdBQ10YA08 B9TuRxugjDBowVK+PGRp ycBqvOvtUB3eCbZi g6qxn0KgCZjwM6EtAZQt OYqbOgw7VFIsJUW5cSG7 eJ9eXENdVTlsn1Q5aOP1 R6AgieYfti3hg6aq THVxNHozT28vjQFhf9L3 AUBxjFS7QHKmbFqvQzBx rI72Nfu+BKHfmEnij6Wu Vtjaw1vif4uikJj5 IjMwJSIgdmFsaWduPSJ0 r3OjKr13V23yAQumWHBk AKLlMERmNZMljEvadz7o xP2mJt3+PGNvbCB3 oLU0wM5lULJaPtC8GTca E826FxViwKBiNlqbw4rd f2mfqDi8UqNvUSLuccMt tDngMPY5k5KnRl60 Y51yAEkeJYXsTUStYLNc GXHcoPjpdf1hsC1fYx3+ GU8vg7gnlj06gW38yKE+ QBGxPUZ8lJthTOmt ZUDqkY7vCJrhMnD1TTHk AlDojV54aATvDZsmCy7d pUgimUybAH0jHFYdrrld p740LyUly7ytQRLp dDLdBCflHJZ1Z34cl8R7 LMYnNPRwYIX4bCM1lB9p bGlnbjogbGVmdDsgdmVy oAtoRDasMFziA449 IHRvcDsnPlBhdGllbnQg HeClDEa5A4HiWpz0UJLh gHndPG3ftHLiTNawWu6u kHicdXrtRR1zNRNt fbszr308WyTbg0txWCEj uRPkQPsuWIV0R23df8K6 VQSpETVqQQD0fHM6dN8f bGlnbjogbGVmdDsg rlHksXqtTCrjJSznB732 IHRvcDsnPkJpcnRoIERh tGY7MQ14ZX92tSLwl0Z6 mIJ3Y4LbMMMdrjlg glahkZV2TKLeTCSkqF37 Tz2qbHncWv5qUPNhDZK8 WEPnnQUtQ9XmpE1xGwLj YUYbQXNjR8SfhYNi USlqY179UXhyDwJ7LOQu ngCqB0LiUHOtpJcjGgV7 t2W7Nv6GH5G3WA12RV38 vDKwo5Y7bDP7D4Ba RDBirtzoqbkbcKC8YZEs XWOjkA06Jd7nlItzYi5s CGAzJII8NOEtcIJzG8Nb uA1eNiPeVSJzENJf E0NqfQTbTRgcS068EIqk LgJ7ZPDmgdBjS1EcGSLy kTljTcO6e1E2Mx7OPCl6 AZ94TG40gPWhb7X5 oJT5U4DoQUOhqwzfvxii cZL8HTMdSFFotR64Bp5z jJgdFz0jOGFaFBQ3OYQl fQKsZ3XgzP2pPcZo JKZdKNBaI6OsmVDuGBjr O173TLlaMzL5IDNaqoQp G9UaLTDyzWkbNhR4m2F9 Je1SBKFrKM27XGA7 vFV9WR10UJ59P1ZzVcfg dGFibGU+PHRhYmxlIHdp ZHRoPScxMDAlJyBzdHls QU2tTb0xLKXkYRYt bHbkaIFsRbGro9xbLZBj JPxaZY0ruBypL7FxsSK5 IALpn1z1Ny09M70tQ0Bq dXA+BUInsKR8tBG2 wD9qZqZkNjN8TDcpW973 DmFrqYQaXoegb3cjt7gz uYr7AxC2IITuzgQajYbt YVM4o3KxOo94N13r IHdpZHRoPSIxNSUiIHZh kZtwrk0mvP9dLa1+PGNv hEM6zXD2yX5hBgFaIxT4 AQpjG424XxGujOVh Evrel0nft9cljCh1WgOe LVNgcvFtkMwrQEW9n7Hq Bs72W8KyeAdmp3VjBfg2 sk52nCVre6Q7xLP9 D3QbADWqqkujgSLdiSej AH5mOHRdqgfxTARerE1i GCNeG0t8SgJmElH9DIug S1UonvJ9ROVmzDCx XOhxMEY4G72mc6Z6UNSp TUOvPHF6gWA3xW0akPop bjogbGVmdDsgdmVydGlj HPjyIQpmR017PHGy dMgfUJDjsC9oQYIbyEKb gJepFQ7oVSDibjmyCdVX E6LWK54MYKHJF6DIOiRw FEfIJC46E9IdWeq2 EAFmgHcsBB5rlRIvYLud Qo3epHglfQggON5mHYFz vwgwGCOchT7eNZZlpGVm oOvwZZ7vMHXstaes p835NmKnFKR6NPYjxQPl C7JdoM5aStExEJUdAEHa U8BvxSMzASneT016MQgs CyL1ZDMagmKkY2Uu LCUunYlzQmP7c6U0Gq2d EQ9sTz1mQYF6DG43AW34 gXWoc9D7gTK9M8LzPQFc wreqbxapeHK2LFUz PWWxxM49pJZwAWspBt1u q7I8w836MJTwVRKxcX85 Ke3rfAgaAACnwGURsL0k mweky3kwdkdfLgOl UTVkHKm5BIc9WLHsuHbo BhMnJVI5DhB4TSR8dGSb lR6niAnmjkaysC3xHaz+ NBJsFOLnwdS3K5Jg Ikd0JTMoxQctGA1rrSCg JOhgSx5dxVpzySsfXA0r ABRooewhSFShuN5kHVYx aFRpxZdzOT7gGKTi exugu734SaNxQHB5PYAu yQSzC4LbmH5oHoMvGBFt LDLbI3EkiHKjNLuwT366 BQjfLyQ5MUTdcqXs M1FxQZCqmAskTnN9j1Z7 Jv0LVUhYSU34IZ12eZEy n6Z5oQG2E9BcJYRzockp cqqhxSO3CZSsZHKa hE18aVJeNDhwCb4aw7P4 q596TUApQNHuoO83Yd1y bYhgIDFhhQEJuU2ekxij h2nqfbniUsMyAIAy OXd1DMu6WOIcaLviWwRj UUI7YqK0BYJ8nGPbiX5u jWheiqyviU6rSsd+T1A8 L3OePwlubYJ+PC90 ZYBpVM70gQNtvDApa6vw jVa7UaJaDZRjLRQ0sSes XTsub6FqWAMxH33pcOXk w5J5GWSdbWndoMLv PmJufZF1uF0xJPlvbyyh r3oysgjnLqakj2ylci29 fS91G02nDZvnPLBeRTQi WOQrSMOegNvjam7f qQ6dOc3+ZRYobCA4lRK0 pY7wBxSkFgG4COhoR225 PfAwxRVaTldvj6mop7gk gGj1CfDbHYCesfHh mYabLQM2g1VaLz26Z73y IHdpZHRoPSIyMCUiIHZh rFoccp6esY6kKm8+PC9j t4uajw60gZ67iLD+ WWShYMZ9rCjaOQleBKEc rT1jEYwqXbV7ORBqAxVt eV90dEHlFSwwCw0sqGwj nAyzIF9xJPRuoawe i782JbDuq9dvKTGwqLFq DTgpKXH7A85xr6C7FNLc TTQaVNY7rFR5yM8rmOnt bjogbGVmdDsgdmVy jTmkSGbtEMejT234YSTy pMeySvGzaFLnF1uyhzUA TN6xQyikvDM+PHRkIHN0 nNxsAMueHDRbvM0f OFCeF8f4VfJrOkS7IIiu O1IkzyG5CVPkgBKpPVEp mLDDeL0kvhqep8avykid LdKrSCIsVFw6IYf2 MUKzaUkrIjMaXXW6ArW1 VYX6gFRdsA9zoHnxatau yE9bHrk+RklOOjwvdGQ+ MSGaZZE8kHwjZDsa MIFvuS3qCMWnA6m4AwQz SgW1AQelS7AbcfC1MHOx sHBbDPHoeOHRnN6feypp e1ffgduyRxByCQJa TWn7VSm6JEJygYjmTvBf SKF6AhY2JNB7vRAcjD6p hXhcjjtbmH4uEim+TVJO OjwvdGQ+PHRkIHN0 bZwrFMfyTSTduW7bTLGi J0e0BsIsAaY2GOptC3Ht giQ7YYBxoJChDVAaxVTU aE4buracg8ysutas OmFoGNLdIHr3PQl4YYBk hEspPjLxSXY1PnR8SLY1 hJVkiD0voMbijawqtT7r Oyc+WSM1XZH3KU14 ER69B0QcZpfqjCGezUD+ PHRhYmxlIHdpZHRoPScx PUTrRxNfjZdyYY3rDj0y ZGVyLWNvbGxhcHNl OiB (more content not included)... Normal [facility] Provider Orderson 06-25-2021 Provider Orders [id number] #1.00OTGTIFF Normal [facility] .Auto Diff 1on 06-22-2021 Auto Dickenson % 10 % Normal -12 [facility] Comment on above: Performed By: #### 1 [id number], [id number], [id number] ####[facility] (DEFAULT)[address] [place] [address] 61948 Baso Abs# 0.2 x10 Normal 0.0-0.2 [facility] Comment on above: Performed By: #### 1 [id number], [id number], [id number] ####[facility] (DEFAULT)[address] [place] [address] 36513 Basophils/100 WBC (Bld) 1.9 % Normal 0.2-2.0 [facility] Comment on above: Performed By: #### 1 [id number], [id number], [id number] ####[facility] (DEFAULT)[address] [place] [address] 38969 Eos Abs# 0.4 x10 Normal 0.0-0.4 [facility] Comment on above: Performed By: #### 1 [id number], [id number], [id number] ####[facility] (DEFAULT)[address] [place] [address] 72670 Eosinophils/100 WBC (Bld) 4.7 % High 0.9-4.0 [facility] Comment on above: Performed By: #### 1 [id number], [id number], [id number] ####[facility] (DEFAULT)[address] [place] [address] 84348 Lymph Abs# 2.9 x10 Normal 1.3-2.9 [facility] Comment on above: Performed By: #### 1 [id number], [id number], [id number] ####[facility] (DEFAULT)[address] [place] [address] 16888 Lymphocytes/100 WBC (Bld) 33 % Normal 14-48 [facility] Comment on above: Performed By: #### 1 [id number], [id number], [id number] ####[facility] (DEFAULT)[address] [place] [address] Dickenson Abs# 0.9 x10 High 0.0-0.8 [facility] Comment on above: Performed By: #### 1 [id number], [id number], [id number] ####[facility] (DEFAULT)[address] [place] [address] Neut Abs# 4.6 x10 Normal 1.5-9.2 [facility] Comment on above: Performed By: #### 1 [id number], [id number], [id number] ####[facility] (DEFAULT)[address] [place] [address] Neutrophils/100 WBC (Bld) 50 % Normal 44-88 [facility] Comment on above: Performed By: #### 1 [id number], [id number], [id number] ####[facility] (DEFAULT)[address] [place] [address] CBC w/ Auto Diffon 1 Erythrocyte distribution width (RBC) [Ratio] 13.2 % Normal 11.5-15.0 [facility] Comment on above: Performed By: #### 1 [id number], [id number], [id number] ####[facility] (DEFAULT)[address] [place] [address] Hematocrit (Bld) [Volume fraction] 45.3 % Normal 34.8-51.9 [facility] Comment on above: Performed By: #### 1 [id number], [id number], [id number] ####[facility] (DEFAULT)[address] [place] [address] Hemoglobin (Bld) [Mass/Vol] 14.9 g/dL Normal 11.8-17.7 [facility] Comment on above: Performed By: #### 1 [id number], [id number], [id number] ####[facility] (DEFAULT)[address] [place] [address] Instr WBC 9.0 x10 Invalid Interpretation Code [facility] Comment on above: Performed By: #### 1 [id number], [id number], [id number] ####[facility] (DEFAULT)[address] [place] [address] 99492 Man Diff? Auto Normal [facility] Comment on above: Performed By: #### 1 [id number], [id number], [id number] ####[facility] (DEFAULT)[address] [place] [address] 11848 MCH (RBC) [Entitic mass] 31 pg Normal 24-34 [facility] Comment on above: Performed By: #### 1 [id number], [id number], [id number] ####[facility] (DEFAULT)[address] [place] [address] 34962 MCHC (RBC) [Mass/Vol] 33 g/dL Normal 26-37 [facility] Comment on above: Performed By: #### 1 [id number], [id number], [id number] ####[facility] (DEFAULT)[address] [place] [address] 54147 MCV (RBC) [Entitic vol] 95 fL Normal 81-100 [facility] Comment on above: Performed By: #### 1 [id number], 7934157, [id number] ####[facility] (DEFAULT)[address] [place] [address] 93380 Platelet 295 x10 Normal 138-427 [facility] Comment on above: Performed By: #### 1 [id number], 0252062, [id number] ####[facility] (DEFAULT)[address] [place] [address] 63495 Platelet mean volume (Bld) [Entitic vol] 9.1 fL Normal 6.3-10.2 [facility] Comment on above: Performed By: #### 1 [id number], 7944936, [id number] ####[facility] (DEFAULT)[address] [place] [address] 33631 RBC 4.78 x10 Normal 3.70-5.30 [facility] Comment on above: Performed By: #### 1 [id number], [id number], [id number] ####[facility] (DEFAULT)[address] [place] [address] WBC 9.0 x10 Normal 3.5-10.5 [facility] Comment on above: Performed By: #### 1 [id number], [id number], [id number] ####[facility] (DEFAULT)[address] [place] [address] TSH w/ Reflex to FT4on 06-22 TSH Qn 2.41 m[IU]/L Normal 0.45-5.33 [facility] Comment on above: Result Comment: Gene ral Population (males and non- females, aged 21-88) 0.45 - 5.33 Females, 1st Trimester 0.05 - 3.70 Females, 2nd Trimester 0.31 - 4.35 Females, 3rd Trimester 0.41 - 5.18 Performed By: #### 1 [id number], [id number], [id number] ####[facility] (DEFAULT)[address] [place] [address] 46171 US Carotid Duplex Bilateralo n 06-22-2021 US Carotid Duplex Bilateral DUPLEX ULTRASOUND EXAMINATION OF THE CAROTID ARTERIES. COMPARISON: None. HISTORY / INDICATIONS: Evaluate for carotid stenosis TECHNIQUE: Bilateral common carotid arteries, extracranial internal and external carotid arteries are evaluated with hogan-scale imaging, color Doppler, and spectral analysis according to a standard protocol. ICA-CCA ratios are calculated with hotel services sales representative peak-systolic velocities and recorded. Vertebral arteries [...] Jules Tilley 06/22/21 2:18 pm Technologist: PM [facility] XR Chest 2 Viewson XR Chest 2 [...] Nguyễn Aranda MD 06/22/21 3:55 pm Technologist: EM,SE [facility] Coding Summaryon 05-23-2021 Coding Summary HTMLBase 64 VcsvxbibJQj3pBh+PGhl YWQ+IM1UPZFfE61lrMLw iB1LD3xEOO9SDHZYOPOY AN8OHU9joOB1XJpsN7Ny biAv EdcszFUtPS78VMa0GYK1 qVlaHUdajE8rmHXcS4w7 ZwDiDF08kJ88YBbeHIAg WlO9LtTrywnefSGx F0yrRcUujRXeBxq+PHRh YmxlIHdpZHRoPScxMDAl BiKrvApgBS5gXa9hHCVs LWNvbGxhcHNlOiBj y6urGVRmBBkvPW7lnNxd G4OzcXO4BWWtw3n2Ve03 dHI+QLUrNLK6sWgtUIwa w377CaGfd8utATE4 kRUxPDqhYSQ7H87wz8Y6 OQHaKOJcIIR8qND8nV6e mSgrwgdsT6KcgQUyNlU1 LCE6aAEdiH2rgZil xfhjvG6wYnz+M09BZC2H MWWAFB7MNex5H3IpRjfn dHI+DS88TXEgJE13oHDe hJLdh7pstEe4NjWa IEUgZJW6dNiuHDlgw5Px SVGyD64otEXvd9H4BZSt uObkaWXyGuOsmYO2mV2n WXlupknft6asnuul Envma9bymn95wY97F95d BQytYGOoYPQ8KTVeMQEn cAkofg0gqW0hLs5+IDxj r9opl2azoWl3KlBt UQNxhmSdhInmXRZ4f0Ca Jt95R1EwaBcoy5IeZyu1 wi61dFDfr4S3iFD4PHpu IAHctH0uCXdhEqX4 EDTvWqRosH70vKHsYIcp Rw0ndXktmMorOD9xMIMr dpatUQNdzE1wVNIbwBAr tIlzFO1iZETdvvzg l503ZnDeBPJ1HUSpnEOs L9JflK5vLaXeNLLgCXFv L1BwxPDwGEpaO279WBhd UjT6ZHDjohXaS4Av ZFTzcAkiEbZ1z2U9Kc0I x4MzfnyqEHH3TNynDRG6 MuY2HvNuNlJ8O9GzHgz9 PICaxTwbBM9sE8Gt XUHmomsxrueyeXA4SWHm DTQzmR16nYNpLZevCi2l m9B9f598NBZhHKUskW37 Oq2pkDpuVPWymIYB vA8bjhgth0rqvckaDlXc FFFaYAt6SYz0MDBysLpf CuYxIPI8YrS6MLX4iGYn aB7hvZddfsvktC0t Oyc+V45hwJ8eCQQ3XUG7 vdbvHCEvdqXsWD34EN54 O9ZqPkkyyJOdsWG+PGRp ebCobOwoJV0yOsBz b4wtq7IqFYfaS1QkZOJg YVxfYbz1SVYoOOC5qHJ5 wR5mJMDtFMckq7J5pHF9 Q3HukeRkat6ka2bz FRXnXPcbI73haQFyt2R1 KNYszEB4GSNlyTiqPwBx qG96Ufk+ODNmhGpyz5Cr Wsunt2fvh5smiJl2 IjMwJSIgdmFsaWduPSJ0 t2TuKp51J06wJBqoBOCw EEHjEIRiCXAsgNjmot0o wA3gFz8+PGNvbCB3 iCK9oE9oFWLjCjX6NTes R363UtUasVEmQpxlq0sw c7zkeYa2JkQjBUMbmzGo uQudXER7i9CkNc36 U75sWDplBSAqZSHsSBVr KIJtrYhlqg7mdL7iQg9+ HB2hl0liyo85vS70kMT+ KIMkJCB4dUxwSUoj YAOfsY7mYXxbNdB4XMRr PrPbiL25oNHnFHhtOs6c mPhtzEmdCO6lNWSzrefw x345TfKxj4cqYAYb sQJgGJzuFIP7H08xx8B4 PQDsSQLuXBF5pGL1iK4s bGlnbjogbGVmdDsgdmVy eJziNBpkLLstW096 IHRvcDsnPlBhdGllbnQg MtZvQYt1R2XaMdv7LQEk oNyyRP2voPRoIJkmWn2p kJspjQakFJ6pWQGh tlcrl697FzVut2qxZDDz dFKxNXlhROV0S37nq8Y8 GFRvZXNcHOK9cGX4yN2w bGlnbjogbGVmdDsg dpGidFblHTcoACuuV474 IHRvcDsnPkJpcnRoIERh bIX5GJ52UC98dSMhs0U5 kUF4E6KtUPBtzuqq ntbgqBO7YPUjXPTmrR78 Fa7dvVvoNt8dUYAuBHY7 FKKldJOsX3AosK7tEaSd HUCfNUBxD2CrsNKo LSwiU053DDoxBcD9SEBi hdBvN2GsJLLbhDnmJpZ6 g0C6Mh0UG1E9ID13JJ28 cUKmd0M8gPB5U3Vy EJJtlstthwcicWB6YVGd JAOxrI56Ew2zaGdcQo9z GTHaMVB3BMCtgJHfV0Or pD7aKfBoHEUqEAVf H3DggOCeZWknV804IVbv KeY8BIQekwAjW2KrIMCx oHkuXaU5u0W5Tb5LGOs2 LE52NF71xSNmn2N2 bXD8L3KpCJVuwitcesyc fPP9LUTbAOBclX58Rf9j dOmaVt6kUZNgVLD8QCXz vJIaX8ImuC5iSaJs IXXpPLVrD8QpzYDfXCgc S878UJocUxT5YQTbhwGh X9AkZUDyyPaoZcS8f7X8 Za2VPPAdOC73EKD9 aFS1SH96GA17A6SrSbuq dGFibGU+PHRhYmxlIHdp ZHRoPScxMDAlJyBzdHls DH0eAs3pGCHqAKJu tCrmgVJxKoMxc7dbZYAj PZocKT0vyOdbJ0AhgSD3 HHVuc8m6Ql56T27hU1Hl dXA+INSphLA0oWI2 tA6cWhYyTtH6BPvzC724 TaFmoIAeSjvch3apj9pm jYt7UpT2TJKlewTmmPzb HGK9y7OfCi33F96h IHdpZHRoPSIxNSUiIHZh aIqyvn8keY6mVc2+PGNv pAI4xKG8yQ9aKxSjXqB0 RBcdW128JxGmhMFo Zddiq9lck2qyjPe9YdCc DILtboQizEmpLNQ1a0Jd Xz43S7AsvSbou4HdWay8 cp85lUFbd7V6aPJ8 Y2CsCOBlksowdTLalNah KM3cCOHqtbpnEUYakY9f FXAgX9h5SkCqCnJ3XJoh D9LfknF6LXYfjXJr PKxcVTV7N99fn6E0OGUp TNGoAKX8eID2xE1yvSni bjogbGVmdDsgdmVydGlj JCosNBkmR907ICBb tGsoDLLhjK4cJVTgpGFh hXeoQE1kJGRvazzuVgWO E9HTJ35BCPAPM1LIBtXb AZtAOS43P9MiUuc9 RPPtpMopYQ1zlJEqXTlr Bv9rzIqjiHdhRO8eSWJa kvqpAIDaqB5xMFXbhKWs mAdfUC4sQAUybrkn f856WzEsKJJ5CGTkiVSc X3VgmX5jXvYnIGVsPANk S2ShqMEkOAbwN300JMav BcG9AFLtivZvN9Dv BAHdtTeuSkL6t0T8Wo4e LQ8gRe4nBZM7HW06SK70 wQQob8Q7xCJ9E3VgLSLg ipehezmrrCM0IZDe EVRskB55lJYuEYitEa6m p3A3a931PWVmVEPcxL47 Vw9plBvpRWHgsVJGtJ7y wpynp7azjpppDqWl DBOiCUr2VTv8PMEqdSto VdRyIKO4OpH3MYK6tIKb gX0ysLjkqjdljL1wRpy+ CGGxPDAmvgI8I9Lh Ueh2ORAanFkvAT5nlQPk HBohFa5gbKcceGjlCH1b EMOgwbhbVEIffT6wWJLs kKAyqAacTD6rPAYs xabqz215KuJcTZK7DZCc vESsU4GmyB8uHlKzDQWj UCRdD6WrpDOoGIgeR549 ONzqDkJ4DUNfahJh R0ShCMSsjOrmKwF6j3J9 Pg0YEEqOOJ63RK83sFTh n0Q0jGE9V5SwKSSrkrup mcdytZE1VKTvKMVv lF75zKAlMEcpKc6me7Y7 z759CAVtQQNxoO62Rf2p nAebGOYjlKPZmN6abzfv r2tbsebpFwObNVXp JNu7GJe4ODRgwImzUmPp YMX4HhG3PCY1kVApnB0x kBatlbmvhK4hPib+UmVj yGDtqR7sVK94pRCj cWugenT8Y7PuPjrczWD+ YG20OPEjTW52mTIbkAWe o9cjiJe9XgPrQXJhGIG9 bYluPWlyf8VcPQGw T89jqASjm7Y9AICbgVuc zMTzTkZbhWC0aC0iQUoj ldpdm8jnjpdvLsxxz2rg dx33pF60W60qXPan ZHRoPSIzMCUiIHZhbGln fk5wqW1oIt3+PGNvbCB3 iDG6fX1gYoDfHeB2MVik L010JiWliFObXtzr t8weu0rwkSx8HzQjOPOt nyBcgTyfHEW4n1FcXz06 R60yYVcoWERiDCYaTQVt NUFpsErdlj6qiI2m Ii8+DK3ey7jjjf87dA95 dHI+HTAvCWF1wWlfPEqd UVKmcA3pULorXbY1TYPu CpEptN30eMFnTWnq Dl7vsFamhWnhKT6sXOJy phtfo971AvFev7oaJEQi eBLaEUijUPY6Y34gv8F8 RTPgESHgAXA2pSD3 xP1pzCgqbsipsLAbrLfc xwDzyVsdZAbkNIaxD561 QPPoxFwzMzClfUByX7zt adMNDF5sGdqumRE+ UIUxFHP4eFjhABohVRNc cT9wBEHgX7s8PsGmHmS2 FSzsR0CxvwS7WZLlrUVx AKQkmVCKgU4aeqqx d7ceinbaFqTsTBHtNYd5 JZm9ZXCeiEhdLfZmZGF0 DqM8HEW0zZOpjJ3xsFhm mntadB3sSdy+RklO OjwvdGQ+SMHwODU6xFag LGzhFOOymV8cBAIiS9r9 PiOcMbZ2HZwbH2YdzsO7 IGJvbGQgMTBwdCBU uU3wozqac2eegoagTvIq AURgXEp3HEg4OUDizMgs HxJzXFZ0PzF2KPH9dPNf eC6mvMzjubdjtV3c Oyc+TVJOOjwvdGQ+PHRk YHT9cJkrYLzySUCenT1g THBbJ3f1HgVcGwM4QSfw I7ZwmgD0PGYajJHt UCIwxXGQgD8zuexba3qh zgrhZpTlZIHlRXp3MFz2 QOEruYgjDbTeTDE0TmP2 YGS7zGQdiQ2hzFvq lxyowY4wXmg+GOD1KWB0 UP99QW23I5CpHtymvFPi bGU+PHRhYmxlIHdpZHRo PScxMDAlJyBzdHls ZT0 (more content not included)... [facility] Provider Orderson 05-17-2021 Provider Orders [id number] #1.00OTGTIFF [facility] Coding Summaryon 04-27-2021 Coding Summary HTMLBase 64 OfyxerubUHq9kGh+PGhl YWQ+RW1YJPOiY37mrMDl yO2FU3dHTG5PXTTFMELG NW8CEU9efQH3DVxhG5Pq biAv EvkoaXYkBD88BVd1IMT6 bFcuWCdhhZ5wzYTlW0r6 HcJyXC70qA04DLowLUTq IqH8CfTcqfegcQZc F0zpXsCjwFDoSra+PHRh YmxlIHdpZHRoPScxMDAl AkLcyLgrSG9bIm2jYPVj LWNvbGxhcHNlOiBj w6kgXVPdYMvsTU0asSue Z8GlrFI3YKHfy9m4Hf43 dHI+QMUlDNT4oVmlUMfb g953FxSdl3pbKGR1 uTYkPFffJKI8E00wo0W2 IRUaKCTwNYK4iFD3kJ7y pCmzbmxwA6TvnBKnIlD4 KOC0gLTvzB5jrQod btjdhZ3rZny+Q85UCF9N VUVSMX3CPcr7B8TyGdbq dHI+SF44XKWyPB18uGFp eMZar5nfwTr7NeIk GSVtEED3eCtsLDpob4Li KKUmB66mhXUrf3X6AIXe yRtfwEHwSaAsoCL8sQ3a QUcyptyfu6rtclae Ukvku5mkuf37uE66C60y VEwcQCBaNFI6SDTfRSVy tChzba9htT2iMx4+IDxj k3ovl1hfoAj0HgRg DXAustDzjBveXUS1g5Dd Pb70S0NeoYajj3UqEyi8 ob93aDGoj8Y7hMX5ZWll VVDieD5rAIsiBnF8 YHAuRnAgsS16sGNtITcy Oz9rlRlagBxsHA6jOTEf sopoBFQtsA3rYNIogQBc zUtyAU6nQHOdwnyi c265WkYaDCZ7KDBybQYf C9AynT1gQsBgCRBkQDCf M1EvrJXcJRnkO055RDhs YjD3YNJszxOnN9Jr OFFjnYgpBmT2q2D7Er7X d0GfpmpgHBV5CBxmWEH4 EuX6GdLcDxP6B7OpHhm6 WFWyaEkoGQ2yS8Ik SOKyrgmqoapozEB8RULh DANsyB68qGTdUCwnCo7f s6X0o882DMHjJCHwiP31 Cn7cfLoeHXOloBHB aS6mqhbxx9leeoymPdKz FMBlNTx4NYc6KBBcuRob DqUxOKK1XtO8BRJ3fIMl rF3alMemncepuU8q Oyc+U72jgY1nWMQ4KQR0 fartXQXdtlJyOQ96FB80 F7OyEdbmeNDikND+PGRp gxUxsMbwWF8dAfXl t6ifn7FjFMstO5QyIYXc KKypLji8WUNlGAC6jIK0 gG9sVXKqCOgni7Q1vCD6 X8LwzdRjer0oh5gu LHUuUHpvN22igWVcp7A8 XKXflDV4JBUtvIsdVnTk rA16Fyd+SZSarRhyd6Su Msged1dwi4pwmSz8 IjMwJSIgdmFsaWduPSJ0 j3NtPy76G02oGQmvIICw UXOqOUZvDWRtsPbvbb2g iM7uLk4+PGNvbCB3 iLE8oQ0gYGKwArC0XBme H746HqPdbLLuKdcys1pg g1eqyHd7JvMaPTUepjAj jUeqXDM3r3EmGq90 W46vFTqfJIAeQUDpVVDc CFHqdSmbxy1kkF5hXk9+ CK7lv9lbhs07jC53lJD+ XHCkTTV1gNxyLPrm LWHzkY2uXKliNkW1IRFp VaDssF01lENuSUcaTk7b kPnzdUasWA1rCLWzchml n643VvIxu5yvKNQh xWPwVPtxCDN4P10ir3Y2 YPWtPSRyNYZ4fHE8xN8x bGlnbjogbGVmdDsgdmVy iOmrNNdyCZvuR210 IHRvcDsnPlBhdGllbnQg ZvOeWCd7M3DhVsu2EODt fXvlCT2zeAQrTUzrTc9v sMgkhZyyGI8sUPAi tuhni052GnNoj7lvYKQr oFHxGBdlPTE8N52tf0W7 DOAjOUPpMFO1mGY7wJ1k bGlnbjogbGVmdDsg xxOzaSizLLwhHPaxO642 IHRvcDsnPkJpcnRoIERh jNP0QQ93BK05tFAct4S1 cRS5H6RnIQCkjblq tjtcjZM5UVJdVSXscW90 Wv7soOnxLj9aGCYvVRB9 EQHpxWGsL6WboF7cZmSa ZCLbGBHjJ4TthRFg JRjwQ272APyvWmU8MWOl bfOmE8XwZKOdbMzxIlJ5 v4G9Hv5KE9R9SC30KD00 mNLor6J0aWS7X9Cv UCOzhjvyrprmoOH5SKWe RFQsrA39Ey1ywIxyOh7t JOUoUEY0AOZrbBRoL6Yy nT7aBhBuWJJyYQCy G2ThaNPmUJyrF095PRgz XzV8UOKgxyOeN9AtBRFx bRlzUqM9u0S4Iz3JCEv6 VV87WW60gGQzc7T4 sHH8K0UeDBHduzfqgmad wIY8HQPpYXRknF33Zl7d tQznBs3pOTEsGTO1CMHt qYXgJ5HmsO9zJzCo NUElKJNoY5OsiMMeFPds D193TUkoHzQ6XQPokaVk N5OhFVYkgJaaHhU7q8Y5 Cd4CHJHuRE09IIH9 xDD2HA52DZ87P2ZfQzlc dGFibGU+PHRhYmxlIHdp ZHRoPScxMDAlJyBzdHls GD0jDh2tFJUoKCPd rDqwjMOfZiFer0vsYBFd HScjEB1wlIimM9BksBP9 BWXze2r0Qf71K09eI1So dXA+VATlpOQ9aDT7 zU7pVtLePuM4XHpjU262 QrFhuXCpHxjqx4ykl1re fQr4WiF7GTVwacMvsCpx DCU3l2JlPp56K76q IHdpZHRoPSIxNSUiIHZh wNgyeh8rjQ9sKr4+PGNv uCQ6lKL5aW2sUbKtHyK2 IQdjK980KzEylRFa Umjfz0qzu7ehgPb2MdYt PCToeqZlbBmvURF6l8Wy Dv75U4HyaOszo2EyTav8 lv25wUArc0W7dNX0 Y0WsTACgmshzxSMxsTrn RB4tAARsthqiILTfnN2k KRShU0o5JjCsQiA7JAsz R2TyeiQ3PYNwiXAc SAdjCRB3Y70vd9X1GIXy OKLzBIH9jFW5rK4xgGyg bjogbGVmdDsgdmVydGlj ZWoxHXphW670VXTn fJbnCWXmrG4uVGHzpQVr iQayZY3vMJCwtzkeUrGO E7SNT08SLANNM3GMZoAb NJeGJW73B6AhAme3 PGMfyWmvZI0wiWYgCTrr Gl3kfEmzjKrbWT7pRYYc twemAYRykS5tVMOxwGDu pClpVP9iQCBpehzd g782HmTzGZV9QPUunZNi Y5KflA6rWfZkMIJrNJHg Q9UloURgZMpuK579PIix FlM2UOSdvjMrX5Mh EHSrpVywJnB0v6K3Hw0s BJ7aVv1tWMH3VV46ZD22 pTVox1M8mJZ6D2AuQLNv hefvmeyutYJ2VQJn CRJehQ99lVZiXDrfNj9m s0D1e283SBKkKJRsyH97 Qa2exDbpLNJicWETjP8x aagon7qofinxJbTz FEZtJDr2QLo6FHLexJsk NhAzPZL8XgX2AZT9lMWh eS9ytYljfwyowL2qOma+ EZJoBLHmhvL7H7Kq Sqp6XXUrwOniMD1zjFYi LGvjSx8yrXtqkTmyAV1e ESAhtsvlJAGtqW3vJQSa mXRtqNnoTH4mJXRo kqkxp050DiSoHTK7HVYq uEPwK1HkvT2mWfDeMAIl WOOyC5OnlALwNYmdD332 CZasKhA7XUAwsqCc D9WqFMGxpWdbWqY7i7C0 Ez6VHFhUIA44NZ91hJJd n9U3pQN7W1DyCVHegcvy spzdrBK8UCNkYXNo uO56hPWgJFsnBt3xy9T8 a176DMZhZHQxaH05Ry1r iWfdCYUydZPUcD9saujs f6wbtqnuGoQcEGFy EIc9KLq8RPOsrSelSuGl BNQ2HfE7SGG3pXSmzV9b fYygkqcwdL7zGyu+T1A8 C9IgOiaohYJ+PC90 FILnKF40mQRcuAPhj1fe vIe8HfAfDUSlMII5yBgh GKqsh9EaGXAwI95uyGZh l7H0FMRreIjnuMUg WcEejIZ4oQ1zGZvgetum i0ismhznNbjze4naqs22 kE33Z88oBHewKNMuORZz HGThLTLrlTyzma4b eT7tZv0+ESQwcII0kFF5 rV1hIeVlQwA9ECthA787 HhNnbCMvRckmn3gxn5pp wCq2UaKmGYKvfwGv kZnkGXM5r3WbMg53A42d IHdpZHRoPSIyMCUiIHZh zQrjlc3pqH2tIi0+PC9j w5dspd01fY30fAI+ UKVtLMM9mTjdKSnwDKKa nA0vZNkbEaT0PLJaIuTj fH19jJBiJGljLw4egJsc eHvsLF3gEJCqywrz c255LqVrj9tvVFGwlOLg ISgzXCZ9E43pq3Y8SPAs HOOeQWD5bQB6cU9wrGvp bjogbGVmdDsgdmVy aEgmOByyNAccU387MZAz uErmNqCtfNNsA6ocpwNC CK1cWzareSN+PHRkIHN0 oZdfRPetZHRtfD5s BDYtX8f3KrHpUyE4TSle F2QcxsF7YNUhrFObCKZr fKMJgB4glkhsh8nhxczz JuAzBOZcNGf2QJf0 PJZvpUapSxMvHYN6OpC6 ATV9qKYzhC2agWqlyexu bP0yNtu+RklOOjwvdGQ+ JFLuSTW6pFvdGXxv FXSczW7tNSQzS2d2QoEw JrP9AGndB8SazuS5QDZz tSLjNMWueORAmW3elhet k9ggivfcTkWbADXj VVt9ASw0VXCayRpaSdJz ECW9UuL0AGL0mIWcmS2m xNswpbbloA4bMsd+TVJO OjwvdGQ+PHRkIHN0 jYmdDZukDZOkfK2dYRRv A0k4QmJbLgT9MHojK2Sa qcB2ZRRmvJBwYRGgyGDM wX4amehvy9uxboju QjJgLMPxLUu9NRe5THAg rBrzCoQoZZP8SlH9HDP2 fKPvjU1skArgllsopX7y Oyc+LVY5OST8RF30 QB63R6LcMpfswRNyvHN+ PHRhYmxlIHdpZHRoPScx NQDvXsZujFyyES2zLs3h ZGVyLWNvbGxhcHNl OiB (more content not included)... [facility] Coding Summaryon 04-06-2021 Coding Summary HTMLBase 64 YqkzykafRVa3iKi+PGhl YWQ+ON3LYKKsX28ctSAl fC2JS4sDZK3OBXFFBHCH LG9VPM0ioYK1WYprL0Ek biAv TqcwdKKtBZ22QMm3YWD2 dNinZHwrfS0vhYNaN5a1 MeWsKJ12nW23EBwdRPVw DsO0UzNvglswaWJx L6buXhClhDOcGlc+PHRh YmxlIHdpZHRoPScxMDAl TrXahQnqVX6tQk3fKIEx LWNvbGxhcHNlOiBj d5txBUJyCJgoML0onRaf P9OqcAT2VYBlw5e8Bp88 dHI+VOTiOEG7zArdCOql b752SaUke4boGGV7 kZXlQJiiLVK1R54if9Q8 YQOiPHPgJAL4dEH8zH5c mUrqksfvU2CkyYUbSsN5 VHE4tNNwpK8pqUnz nfljqA9dVjd+T60UIZ7S AQGCUF5XYel8Q7WgFpst dHI+OG83DKPlKK10zNAf cPIez8ighBv3SqKr PMMqVYY5eYozIQrbd8Pw JDBwG93ogLDzs0L1JGRb bPhbhCLlUzJixSH2bW9v RFjnhwitx2zpfvki Fnydx7fefp22mK91R60w DApdJUBdRYU0KATqXCMc oZiufb8kgM2wKt5+IDxj o4dof3tkfFo1ZgDq YDZbzlVhrVtsALW3p9Vd Ly45Z6YerOtac4DhIzw9 zt93vPZch4X4mXS9ROif FLCgkM1wXOtfPnL0 AUZsSbYvxT87sQBbOPif Ck8jvReioPjpUA7bAKVz ujruAPWcmB3sOAUhvGHu vSjfEM5kPHJyaudk o105CbLzMBC5EPDsrQMm I6AuvO8uRkYkGLMvEMUk V0VymSNdSZkwK917AAyz XwI9FAUotwBkO2Ym KCBouWumShW0c2H2Mh5Z c3LfbtymEOV5ZUulWOM5 PpA7OhDpTwI6N1CqTpy9 DXSxhYzfTZ7nI1Ea TPTlxfjceignjXJ2VPZv ZOEkcZ54kSJyXXgrMr0a m7L9a754NCQqTEYrvG65 If5zeErqQUQshZSY eX5iitnmi1ebngjsDxEu MZBoBZx4PEu9DUXajLzt LsZrBXV7QrM5WZT9yXBi lA9qmTcycrofgB8s Oyc+M36hkM8mHEE1STG0 zgjoUQWpekGbPI57XL18 I1CfFlvnyBKdrRB+PGRp csDrkYykEP6zDpYf j7pjq2KhYZozP7NlCRBx ZHspJkw7TNChTFI7xDU0 jL9uNTWfBLtve0L2kTO6 U8SdnkVzgi5xn6mu CAZzZXjnZ72xxIDyu9Q3 VDJabTM5NJVjcZbdUuNq nE01Gqp+FXHslGzqw3Ai Rrcjx5efv2eqyOn7 IjMwJSIgdmFsaWduPSJ0 l6RzRn66J35vOPguHEKg DQRtAQOuAZLmtPnzyn4x kG3uHz3+PGNvbCB3 eDQ4nU6wYBWbIoP0AEvy S152ZfJxqOUmYauzl2ef f7kkyOh4FkNiPVJxdsLo pVljMAY0i1BxRg11 S21tUQxwRKEzEWJeTGIy FCNkiRhixc3rxC5mGo8+ AE0nj3zfse45rB63gLP+ WZCdVLE9oJsrGRiy SNXkpU2gXSevXgV0QMWa HgDqrU82pVTdPNodAf3a zVrhgUsxRK8dVSPvxcwv z411KfGao7byENJe oFUwDLslLGS0B53hl4I0 SIXiHLVzURM0dGY3qV5f bGlnbjogbGVmdDsgdmVy oXcaNOmaHKlzD538 IHRvcDsnPlBhdGllbnQg FaOvEEf5V8IbBet4ZCNb zZlqBA6fwMJfDYjmJb9a pNzucXhfRJ7pOTXe jcofn712HsYtf9bnMVPg jJIcHKksZFA2N31pm9J3 MDVkGDGaARR3dWT4fW1m bGlnbjogbGVmdDsg euQeiQqnJJarFIkiD985 IHRvcDsnPkJpcnRoIERh fVN0VL09FS84rIPij0C0 dPS5V7MtTZSnonva zyzogYJ5LJSpWROaqT21 Un2edCovLo4aFITqFXA3 XVWqaCHrQ9BsyY0iRnEq UXGpKHJgA2LayUAj MQiiK245NBsgEfM7ICLy rnHhU4FlPAOqnNfjWvC1 e2K4Sw2TC7V8OW06MI42 dWFgu0U4aPQ6U1Cu PAOwjjvyojcwsPW0YONq GYBpsG76Mx0kmWiuHr7p HQPnRUJ2KTGuvFBrT6Gl kR4jBuYzZHOkCNIt X8ZzkBLlHLmyL316NGmt YxB7POZiniDbV0QnLDZi qYdoFxG7t3J0Gr6JJBz2 HF95WT15hYXwc8J9 fJA8P4BxWIKmjfwefukn dJU9UFLcZDGunC48Vy7k rCovNg0gBJJxTSD9UVCc eEXeB3FxyE2kXfBq KUAyRDVuN3FlbMKkLJam D304PLnsOhU6JJNfnxPm N5QwBAWrmEjsFpT7c3U2 Xw1UGRXdRA20QHZ0 pFY4CC08BO27F2LiMtkz dGFibGU+PHRhYmxlIHdp ZHRoPScxMDAlJyBzdHls TS8qSb5cEZErFSTf aUtyxLNqZxXoo5hdWTAn RBalYC7nxMvdU5LtcRK6 JPYbj6a5Bi77R94iI9Cy dXA+RUDktJJ5yZD2 fN5hNzEpJvG4DEmhB897 QzYduQPrUvfvw3clg4cx rTc2BvN9WGHyuhGfyGzy TMH1p3ShKb39Q47v IHdpZHRoPSIxNSUiIHZh fUdcgt7xmY9zGu3+PGNv xAW5mOP2mQ7zLkMlMhX9 GSsaB611OeGxqVUx Zqfts4iof9iadGc1JbTj KZHuocUsdVaoXMX6y5Jq Lx21I9WifCufp8SuFvq4 eu67eRDsd8B8bVI7 J0AyTHCpvxoptAZyzOza WO6fUGTrnifyIPNimE9j NXUqJ1g7SiCePtK2LPml F8IuufG3KQPyaEHj GHsiQHB2C93hm3T2LBGk GQWdZBN2rXC2zE4uuDot bjogbGVmdDsgdmVydGlj BEtrBLyvZ008CQFn dPyjYPQbwI7yNKQfaUHy wIatSW4iKNGpbjxjXwFE Q2ZBZ73NBBNHN4UWCqFo IElHZH74I2UhSgx2 NVCzvEggXJ3iuJCuTKui Uy8inGxeqVdbJZ1nMHFr cxnoQDIbrH0qNVEgaYGs zOjbSK2zOLHblnuq o197UuEpTHM6CFUqoTQe O8GblS2wYzTzJQGgRPBc W5ErtBOqKDmpH741VIiv YcO8DOIfydMgU9Yq KJIrdIueNmG4z6J0Mv9c JS8tVk5wDZA9ZQ65HF16 nJYvu1D4vPP4E2YqPPCw iqnqwxkcjOT1TYTz NULeuO32pPSfJVubYc1z d5E5d719TGRuHDKtxP43 Cx6xeKoiEOGhoRVSsO8t iwjqv8lhbdftWwSj TJEiEGd3DXb1BPWbuVim OgJsDXJ8TiM9DBP2iRXj uK0lqTsowrxeqB4zJih+ ABCfDEUsmnS1H0Im Gzg3LONloLujNB8oeJNf YEmePx1ypZdstCzaBW3j QPChpsehFFWcnN8kWLQg zZNziXggJS1yXXOc qbrzd068SoGvKUB0ZWHy iLVqT5VedG6oRkPjDOOe EMMaJ5IwfTSxNBthI479 GKjdMaB0ZZCitqAo H3KrKPEamQamTeL7c4G8 Bc9SXGkMRJ29BU91aXMe j4U8cMX4W0LyPSTvleho sxacqCB3NOFsNLWc hS46kGTxWJonIz7ia8B0 g833VVRoSMJylI41Dt0n mEpiICXsvIRMaY3jswny f7ddpthnQvXlPDXc BLo4TVv9ZDIrrXexSbRn OIK6RcV9ERV6fIJkcS4g tIkxnqcabK4hNxl+RW1l sgcxauR4HE34ZI37 N4BuOsibvQUyvQY+PHRh YmxlIHdpZHRoPScxMDAl SrZjpZsgGK5zEm5mKPJd LWNvbGxhcHNlOiBj b1clQATqEVqcQM4weTfu Y4InoGO6ABTev6p0Ib45 Q87oL2WpmHW+PGNvbCB3 qKU3lY7rZbPuEwY1 SLygG897JjRatHEhBjqq g2okh3nxoDi3YgDxZZGl jyCktOnxIQW2v0JeMe72 Z62vBOpxPFYlMVSp GVZzRZRckZzegx6cuW8t Ii8+XGCuvDA2dAD4kE0a HiRxGgR4PVetL764UsOn cXKfBaivY13rA5Ql dXA+CFSmPmc9BMOxzHts ZN3hoCWdAIyeSm3wTRW3 PnOvUhLrAIpyS1BwQEWe pcbediwmdBO3BATt TDXjlK05Rc5rzXluYk5c MHLkIPN3LSRakYPyO2Mv yJ4vXeYaWNMgFRVxF9Ux eEEjWNqxT626WNjs TaC6ZBItgdQwE7UjSEMj aWzgCjX2g3I8De1MxCub gIJhCU7iIuBmPUg0V8Rt Guk6JDPdvSakIS3u oVHfTDtmQm6wuOhjfCbc NJ2mWAFetswxu019FbGe k5jkZRGmyWSrCJdlIIV6 Q89dl4M5WGWxDHJv AOV7yDQ5uU3ajXdwhnra bGVmdDsgdmVydGljYWwt ZRvvY913PXYgqWlqHsHC Suc6H3CyGmw2DTTs sJffDX4hxXCmMDobGl0w wFkwhLhaZH1hHOHwlxpo q378EzHqi5cdJAFioLMf BWxoMSS0U61yt8J5 TAWoLZQoEYA2eVY6bW1d bGlnbjogbGVmdDsgdmVy pJraHAyoSTkhB739ZBDa gSgmLv5ANqd4M4Az Ufz2UTJmpOyiPQ1pdRRa CLsdZa4dtWzqdNjuGP7u KLQzvfrcs073KgDla2nu IDEwcHQgVGltZXM7 B67vp1E3SSFnPQNiRSW3 pUO2eJ3ciSrvniturANe dDsgdmVydGljYWwtYWxp E440ORCpeUhnXoZb eWVyOjwvdGQ+NC03yc81 A0HmLzskRqi6IPOvUUS4 lVQ1rW6rQMEgGDbtm8T0 oME6C6XldwVbno5j b2x (more content not included)... [facility] Coding Summary HTMLBase 64 SpdquaagACt3aMy+PGhl YWQ+GL8VOPXcS29dkOXz nA5AF7lQWY7XUZIKAOAI EQ9JCU9mvVF3XBunR4Mu biAv XxrqbDVjEB19YDl7FVL1 vNvnMQjzfC5fxBUvD9c1 RaPdCO10nG63BOvmPWPx RbX6YvNltrpftBTb C6opTkVqgPQoEln+PHRh YmxlIHdpZHRoPScxMDAl GjNyyNnxMO6uJw4cRYPq LWNvbGxhcHNlOiBj r8pcVVCcOYxrOO9ogFvr U4KzyOK8XTHvc8i6Ak06 dHI+ZZEtCIA8eRtxUEaf g693IqQyi2gbWWN1 gFLjNEbiZNQ7T91xj6Y4 UEViVXUiWHZ5uCR1aJ4l yLooveyyE0UhrJZpKuG6 TEZ5gIVbdP3shSzy zmxfjU7hDha+Z25NVV2R LWZJLQ1NAou3X5HcIywp dHI+RH13MCVgMJ47zWYw qMDdz5olhRl0DgCr MEJsPZS3uIajRBmkt6Fo XMDoK54qhNKgd4P8PYXu oDnqvEYrAePmlCO6wY5x NTxldtbdf6arlpnv Bzwcx0kaex64tB44D76e LXctVWUiBCB9GHGyBMUs xEyzkg8hpY9vWz3+IDxj f1pnl6zsvLi3BaOj OCNqazAjcFhaXPJ8l9Sm Sz55J3DrlRxeq0KfOsw1 aw60tCJpz6W1jLO9TQno DQXxzM5aSRcdBrW6 ADShWeTkpI88xVXqUVvj Di8jqGatjGvqOE6hCBZk hnqqRPOhwL6xVTJllGDf uLiuLE9pMGQpkbfi q953RrCvDIT8PXFkcIYp U3WwqC1xDzFrPJQoHXIj B7JqzYCgNDjcH318TNnn QaW4VXNotzAyW2Jd UBMssKjiAiJ9c4G5Rr0C g4JpwztqXXA9HQidOCQ2 FhT5GwWlLxC3B7QiJzr7 RAGyyOahVZ0hM2Pe DSNeadpibboemNS8HEMe REVdeM63bNWaQHinEz0l u9E9a635WCFxLLOgiG09 Ge2suVosLWZcbGIP iH2pgyhxb6iplrhzHoPd UVDoZOt5CWq7EWHgwAqt YcBxPEL6ItL9CXV7qPQo sK0rgWvqeqeebN7w Oyc+E88zxX4xFWT5BYS2 qhxfGEQpdyVtDT15AG46 A8RcPmokmOFllYQ+PGRp dgWikCjzPB5fMfQz v9kah9NbFGhpQ9WhYSDb QYczGzq2BYUgYPU6aEZ6 qP3kMEIbMLcdu5T3vMW9 Z2ZbfpRsix2wg8yd JWVfHJaeR81rkIRop5O7 GIXluKR0BNRwqRcuAjVp dT58Xfj+JMWheTcsx1Sl Hydlx3rgu9mwgGg4 IjMwJSIgdmFsaWduPSJ0 i0UpIa64C83pDKvyBYPh WOIxQIRxNJLocNtyir2o pX5aQl5+PGNvbCB3 aCS4iX1hLEHjJzJ3RWzp L544PeNwoENmGpkov6vd e8yroIk7SfUiKERhukZg gHajSFQ3f4GwHz77 K88lDAchQMHiGIGcKYAb CKPldUdtzl8nbY8sZl2+ DL3qe1zrvs08qD09wKL+ KRHnZVX2xVynDDbj JYPfsB3vLEypKqQ0ETJi YyQecV05aFGpNZuyFu2t gGrjgXhsHR4yXQFkbfeg t587LfMzl5vxPBKy yIQpRMsgAQL2F40tx9C9 DUMrWQSyIBY5wKM2gR4l bGlnbjogbGVmdDsgdmVy pEtnSMvbIOulZ214 IHRvcDsnPlBhdGllbnQg HeJuYJv8C1GhTwf4PLQs uXbvXV0zmNHtXBcySt5n nLxmzVbzQI6iCVBg yrnpm663PkDcw9vgISZh tJBlUBzkFPH5J39cc2C2 INMzTHMoWBN1fGS8eO0k bGlnbjogbGVmdDsg qwQuzFdlFAdfSYauN462 IHRvcDsnPkJpcnRoIERh hMV6PR05OG56kRSbl3V5 pHE6G4PnZALcgnrr fqyfpJM3SVMyNTNnzP07 Cg6qrGamSj6gDWQbBMU4 CXHbmEEbH2LexE2ySiLe IRNhPYTgK9OmgNBx FRdlF582UKanZvW4ESXv cdThK8NuQXHgaIowIuA2 m8H7Ol7DG3J4VQ20AT32 iGHzj7E5aVI7N0Pc PFPwgfsjxreebDY9YYHf WPCuvO76Xt0gvSnrGd9l SUPtNAI0PACrhOQfJ2Cj dM2hJaElGAMfWEFy D1EhoJIhFKocG937PRrb SpP9HMMsisZgS4KgINIz pWmwYvO9m5M6Rz7GFKz5 FQ59UW47sVOwp9E0 nGV1D7DyBAFuwrycfdlz jYG2BEKiJIRjnF34Xo1h dUbcQt5zRKOhGDW1IPBo oKJgV2TlzN2pGlBs UASqPVHbH5IrrBSzZSan X087LFbyUsT4HNNlnpSw S9BoVEJruYrrKdW3m6H1 Qq0QUTJlEE52LRS0 aMH5CZ32SD80Z3WmQbxu dGFibGU+PHRhYmxlIHdp ZHRoPScxMDAlJyBzdHls PS9jIf1mYGXqBPVx wZsqyVHlCmRko5jyHOCi ZAiqXS7fjScuZ0VguKM3 UYQfa1q7Gr94Y75rJ3Oy dXA+WRNswOE8iYZ5 xW1mShEoCsW0RVwzQ768 McPpbNZaXwbfp2hda6fg fMn7UgQ9OCKqwnOgwHql HPN4j4OiVf97X99m IHdpZHRoPSIxNSUiIHZh tMyqdy3qlX2jUd8+PGNv bUX4qIN4sD5eArRwWhD2 FPkxP144FyJwjIYm Vhcwk0kpr1bccYc5KcSl RCVvshFrjCuiVJL9d3Dg Co84Q0EaiGrhx4OmIew4 pj25zYYhe2W7bMY2 D3PaCMUupanrgYUxbXxp NI2dWRXltujsRWAtxS0h IJKyY2s8TaEgTmY9ESxm A7TiebB1DGTzfRTp EGzxGJJ8Y00pa5E1QFVr OAZkPOJ7oPW0hY5oeUdv bjogbGVmdDsgdmVydGlj KYghILdkC533AZEc uTxdFWRwwZ0pLZNkqUHd tLydAI7cIUSduwyjUvET F5OQA97NNTTPR9RGQtNj LYiHQJ69L1EjCoq3 VGAimPwdIG3gfNInFTfe Ov9mlOmeiHnfPB5wFWIo kwgrGHXnmC3hHVGxxNPh nSmdDJ4jGVKcsbxg p383AhPaGAQ5CLQdrPBh P9SjbL1qQwBpLUEkTPQz X8ArnTTrFNzfO531YMfd MgL5XJJkrzNlI2Mx VNQwxFnhDkH0k3L7Qc8h KL9bDg7vVHK3HC21XS86 zQLzj1F5eFA6Z0HkOQNg orbuoqugeIM3NTJw JYQaoH72vMMjOVhzJu2j i0B4g415DYPcDSQfdV65 Uy5mzSgoXAOoeROKgB3o wqwhy8ajhdzoLqCu ESQjPPw6DFi1FPJxoSkr XxWiCMI4IgW3STM8gETg vO4rgUjfkkwspA2eTbd+ GRAsFOGsvxK3R8Pq How7QZGufUiwRH2zqPBu YVdkUv1cvNnblErhKY6i TPAfznqmMUVxoY3sNUPj sXUavRenJX3tXXHh mboaj910LvWdYXA7YFEw iPSuB3QhmI9gQxGkIARs LPJwX0HzjRNlWHtvI818 AJyjGfW6WANmvfEc J5FxEMIkgTvvXfT6u9L5 Fw6DYUuGZT48SK24xUQw s9O8sCH3R4HgALJbmizk wnfagQK4OEWdSBOs uP90cXKwFPkfGd0je6C2 e541TPXuKTFvqC80Ha5p wEplPAQizZNYvO3bwxcb l6rwmnxtHdFaWEJu KAu4RFo1BAYlwJbdLtQe NWZ6RmI9IID3tZItqT7r uAkecadegI5kYnr+RW1l ammcfxY4PB96SG97 O2KaEpporJNnbWD+PHRh YmxlIHdpZHRoPScxMDAl ApZttYziJR6zSe0qLADm LWNvbGxhcHNlOiBj p9btCDFdZXiuDM4baZsa N1PybNL0IIIzr3o8Nl48 U68kJ7UokLZ+PGNvbCB3 aRY9hT8uBqYfEeI8 OVkcX858WkIegREtOxnb o0ypx3mghKp5OfIsCTWl ogEgrByzZHG4x9YcLs12 Y97aWOxuBATrXSCn VHDyBJLgwFyzyp0geR2g Ii8+TVZjhQF4bDN5zE7e MsWhFlE9CHpzP218DbOz iUGwPyodO67jU5Yy dXA+DRMrRyk6DFKuzLrk YB8cfCDrJSjdLr6sLUU8 ZeEcNxEwBKqkS7JnLABy cnfjateqeEF3XGTg TYKnjX32Xs0cnQswDn5d VRRlHDV6NOBouIWhH5Jx wL8gLvNlDFFqQWWkO9Js cOKxEKfzK329IPgq MeC2DHVrcwTnO4KmYXOa aAieVxF4j0J2Li0GnLus wZUtXG1qPnQjIQx2L0Gb Mkq7UGJgpMnbOH4d mOEoVZdyMm5caEedjHbm WH1oJGZuidqbe181DhEd d8vuLSQmiBMhCRxbMRG0 M07ia1W4KQNgFRJs YFC7aMR4sG6taUugrqpz bGVmdDsgdmVydGljYWwt KGhuC357ZTSbtEmdEkEC Bwz5D9MsWjn4RDXe dJiqBO5wiSBhERhrBw6k rYyfbRcyOJ1lMSLicpqk s909GmTmf9vxCXMcyHHa ELhmHEJ0E22nu4U7 WKEzXXVfHTW9kYT0mN5g bGlnbjogbGVmdDsgdmVy rXuyFUibTBvgN980XYPw zLddRg0CNjs0Q0Oo Quw0ZNQnpZrfOM5wdWSh THeuJs5amClxoDhbTS6c SDKqvysog819DfPow1gq IDEwcHQgVGltZXM7 V20zg0V7AXSuCQGwUQN5 uDI1vK2hjSohhoawuXWr dDsgdmVydGljYWwtYWxp P518ABZztIuiIwPz eWVyOjwvdGQ+QC42bs91 A9JvZaxwWom6MPGnVHJ3 bQC2rS5zBNVjLGuen5M2 dND9O4VavvHhnm8y b2x (more content not included)... [facility] ED Clinical Summaryon 2020 ED Clinical Summary [facility] Emergency Department [address] [place] [id number] ED Clinical Summary PERSON INFORMATION Name: ROSA EASTMAN Age: 55 Years Sex: MALE : 1965 MRN: Acct#: Visit Reason: Hand pain-swelling; RIGHT WRIST PAIN Arrival: 04/01/2021 19:05:43 Discharge: 04/01/2021 19:35:00 LOS: 000 00:30 Check In: 04/01/2021 19:05:43 Checkout:04/01/2021 19:35:00 Address: [address] [place] [address] PCP: Provider, None PROVIDER INFORMATION Provider Role Assigned Unassigned Miguelangel PUENTES, eKnisha ED PA 04/01/2021 19:10:19 Shira RN, [facility] [...] Follow-Up: With: Address: When: Andrew Mckenzie DO [address] [place] [address] [phone] Within 3 to 5 days DIAGNOSIS: 1:Sprain of right wrist Patient Understands: Yes - Patient/family/careg iver verbalizes understanding of instructions given Comment: [facility] ED Patient Summaryon 021 ED Patient Summary [facility] - Emergency Department [address] [place] [id number] PATIENT DISCHARGE INSTRUCTIONS Patient Information Name: ROSA EASTMAN Age: 55 Years Date of : 1965 [facility]: [id number] Reason For Visit: Hand pain-swelling; RIGHT WRIST PAIN Arrival Time: 04/01/2021 19:05:43 Primary Care Physician: Provider, None Attending Physician: Medhat Hernandez MD Comment: Visit Diagnosis: Diagnoses This Visit Hand pain-swelling ([id number]) Sprain of right wrist (S63.501A) Prescription Information: If you have been given a prescription for narcotics, seek immediate medical attention if you have any difficulty breathing or any sudden status changes such as confusion and sleepiness. If you or anyone you know is experiencing suicidal thoughts, mental health, alcohol and/or drug addiction problems; contact the [facility] 02/06 Crisis Hotline -text 4hope to [phone]. If you received any narcotics, sedation, or [...] sign any legal documents With: Address: When: MagalyAndrew Harjinder DO [address] [place] [address] [id number] Within 3 to 5 days Medication Information: The exam and treatment you received today in the [facility] Emergency Department were for an urgent problem and are not intended as complete care. It is important for you to follow up with a doctor, nurse practitioner, or physician?s assistant center manager for ongoing care. If your symptoms become [...] so we can reach you if necessary. [facility] Emergency Department has provided you with a complete list of medications post discharge. Please inform your sales review clerk/provider of your visit and for further instruction on these medications. Any specific questions regarding your chronic medications and dosages should be discussed with your primary care physician(s) and/or pharmacist. Medications to Continue That Have Not Changed Other Medications acetaminophen-hydroc odone (hydrocodone-acetami nophen 5 mg-325 mg (Craig 5)) 1 tab(s) Oral Every 6 hours [...] With poor (more content not included)... Normal [facility] Vital Signs Date Time Vital Sign Value Performing Clinician Facility 02-20-2023 14:00-0400 Body height 172.72 cm Josué Evangelista Other [facility] Other 02-20-2023 14:00-0400 Body mass index (BMI) [Ratio] 32.08 kg/m2 Josué Evangelista Other [facility] Other 02-20-2023 14:00-0400 Body weight 95.71 kg Josué Evangelista Other [facility] Other 02-20-2023 14:00-0400 Diastolic blood pressure 80 mm[Hg] Josué Evangelista Other [facility] Other 02-20-2023 14:00-0400 Systolic blood pressure 130 mm[Hg] Josué Evangelista Other [facility] Other 01-22-2023 09:40-0400 Diastolic blood pressure 84 mm[Hg] DO Britt Rumschlag Work Phone: [facility] 01-22-2023 09:40-0400 Heart rate 70 /min DO Britt Rumschlag Work Phone: [facility] 01-22-2023 09:40-0400 Respiratory rate 16 /min DO Britt Rumschlag Work Phone: [facility] 01-22-2023 09:40-0400 SaO2% (BldA) [Mass fraction] 96 % DO Britt Rumschlag Work Phone: [facility] 01-22-2023 09:40-0400 Systolic blood pressure 136 mm[Hg] DO Britt Rumschlag Work Phone: [facility] 01-22-2023 08:47-0400 Body temperature 98 [degF] DO Britt Rumschlag Work Phone: [facility] 01-22-2023 08:12-0400 Inhaled oxygen flow rate 10 L/min DO Britt Rumschlag Work Phone: [facility] 01-22-2023 07:35-0400 Body height 172.72 cm DO Britt Rumschlag Work Phone: [facility] 01-22-2023 07:35-0400 Body mass index (BMI) [Ratio] 32.4 kg/m2 DO Britt Rumschlag Work Phone: [facility] 01-22-2023 07:35-0400 Body weight 96.8 kg DO Britt Rumschlag Work Phone: [facility] 03-13-2022 11:45-0400 Body height 172.72 cm Harvey Holt Other [facility] Other 03-13-2022 11:45-0400 Body mass index (BMI) [Ratio] 32.23 kg/m2 Harvey Holt Other [facility] Other 03-13-2022 11:45-0400 Body weight 96.16 kg Harvey Holt Other [facility] Other 01-14-2022 14:30-0500 Body height 172.72 cm Harvey Holt Other [facility] Other 01-14-2022 14:30-0500 Body mass index (BMI) [Ratio] 32.23 kg/m2 Harvey Holt Other [facility] Other 01-14-2022 14:30-0500 Body weight 96.16 kg Harvey Holt Other [facility] Other 09-19-2021 11:00-0500 Body height 172.72 cm Harvey Holt Other [facility] Other 09-19-2021 11:00-0500 Body mass index (BMI) [Ratio] 32.23 kg/m2 Harvey Holt Other [facility] Other 09-19-2021 11:00-0500 Body weight 96.16 kg Harvey Holt Other [facility] Other 09-19-2021 11:00-0500 Diastolic blood pressure 87 mm[Hg] Harvey Holt Other [facility] Other 09-19-2021 11:00-0500 Systolic blood pressure 130 mm[Hg] Harvey Holt Other [facility] Other Encounters Encounter Date Encounter Type Care Provider Facility Start: 12-08-2023 End: 12-09-2023 ambulatory Richard Lezama MD Facility:[facility] Start: 10-15-2023 End: 10-15-2023 ambulatory CANDIS [facility] Start: 10-14-2023 End: 10-15-2023 ambulatory BRITT PENALOZA [facility] Start: 03-04-2023 End: 03-05-[address] DOCTOR GARCIA Facility:[facility] Start: 02-28-2023 End: 02-28-2023 ambulatory Josué Evangelista Other [facility] [employer] Other Start: 02-28-2023 Telephone encounter Josué Evangelista [facility] Start: 02-20-2023 End: 02-20-2023 ambulatory Josué Evangelista Other [facility] [employer] Other Start: 02-20-2023 Postop follow up vis it related to original px Josué Evangelista [facility] Start: 01-22-2023 End: 01-22-2023 Admission to same day surgery center DO Britt Rumschlag Work Phone: [facility] [place] Start: 01-22-2023 End: 01-22-2023 ambulatory Josué Evangelista Facility:[facility] Start: 01-22-2023 End: 01-22-2023 ambulatory DO Britt Rumschlag Work Phone: [facility] Work Phone: Start: 01-13-2023 End: 01-13-2023 ambulatory Josué Evangelista Facility:[facility] Start: 01-13-2023 End: 01-13-2023 ambulatory DO Britt Rumschlag Work Phone: [facility] Work Phone: Start: 01-13-2023 End: 01-13-2023 Patient encounter procedure DO Britt Rumschlag Work Phone: [facility] Work Phone: Start: 12-06-2022 End: 12-06-2022 ambulatory Josué Evangelista Facility:[facility] Start: 12-06-2022 End: 12-06-2022 Patient encounter procedure DO Britt Rumschlag Work Phone: [facility] [place] Work Phone: Start: 08-10-2022 End: 08-10-2022 ambulatory [facility] Facility:[facility] Start: 07-08-2022 End: 07-08-2022 ambulatory Candida Hinkle Facility:[facility] Start: 07-08-2022 End: 07-08-2022 Patient encounter procedure [facility] [address] Start: 06-21-2022 End: 06-21-2022 ambulatory Candida Hinkle Facility:[facility] Start: 06-21-2022 End: 06-21-2022 Patient encounter procedure [facility] [place] Start: 03-13-2022 End: 03-13-2022 ambulatory Harvey Holt Other [facility] Other Start: 03-13-2022 Office outpatient visit 15 minutes Harvey Holt [facility] Start: 01-14-2022 End: 01-14-2022 ambulatory Harvey Holt Other [facility] Other Start: 01-14-2022 Office outpatient visit 15 minutes Harvey Holt [facility] Start: 10-16-2021 Admission to [facility] Harvey Holt [facility] Start: 10-16-2021 End: 10-16-2021 ambulatory Harvey Holt Other [facility] Other Start: 09-19-2021 End: 09-19-2021 ambulatory Harvey Elscamilo Other [facility] Other Start: 09-19-2021 Office outpatient ne w 45 minutes Harvey Holt [facility] Procedures Date Procedure Procedure Detail Performing Clinician Start: 01-22-2023 Decompression of uln ar nerve DO Britt Rumschlag Work Phone: Start: 12-06-2022 X-ray of cervical spine DO Britt Rumschlag Work Phone: Start: 07-08-2022 MRI of head Plan of Treatment Date Care Activity Detail Author Start: 01-22-2023 End: 01-22-2023 [facility] Start: 07-08-2022 MRI of head MR head/brain wo con [facility] Start: 07-08-2022 End: 07-08-2022 Patient encounter procedure Departed Clinical [facility] [address] Patient referral [facility] Work Phone: Immunizations Immunization Date Immunization Notes Care Provider Fa cility 03-07-2021 COVID-19 mRNA, Comir philip (Pfizer) [facility] 02-14-2021 COVID-19 mRNA, Comir philip (Pfizer) [facility] Payers Date Payer Category Payer Unknown 2022 Medicaid [id number] 2022 Self-pay [id number] 1965 Unknown [id number] 2.16.84 [id number] 1965 Unknown [id number] 2.16.84 0.1.728177.3.579.2.593 1965 Unknown [id number] 2.16.8 40.1.575485.3.579.2.173 1965 Unknown [id number] 2.16.8 40.1.631207.3.579.2.173 1965 Unknown [id number] 2.16.8 40.1.411429.3.579.2.173 1965 Unknown [id number] 2.16. 840.1.406936.3.579.2.196 1957 Unknown [id number] 2.1 6.840.1.381896.19 Unknown [id number] 2.1 6.840.1.917684.19 Unknown [id number] 2.16.8 40.1.641544.3.579.2.531 Unknown [id number] 2.16.8 40.1.957193.3.579.2.531 Unknown [id number] 2.16.8 40.1.715420.3.579.2.531 Unknown [id number] 2.16.8 40.1.218344.3.579.2.531 Unknown [id number] 2.16.8 40.1.339510.3.579.2.531 Social History Date Type Detail Facility Sex Assigned At [facility] Other Start: 10-16-2021 End: 01-22-2023 Tobacco smoking status NHIS Smoker (finding) [facility] Start: 1965 Sex Assigned At Male F [facility] Medical Equipment Procedure Code Equipment Code Equipment Origin al Text Equipment Identifier Dates BONE 7MM DUO FORTITUDE SERIES FDA Start: 10-16-2021 Spinal fixation plate, non-bioabsorbable ()[id number] FDA Start: 10-16-2021 Bone-screw inter nal spinal fixation system, non-sterile ()[id number] FDA Start: 10-16-2021 Bone-screw inter nal spinal fixation system, non-sterile ()[id number] FDA Start: 10-16-2021 BONE 7MM DUO FORTITUDE [...] 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 I will see him on an as-needed basis I think he has had a good outcome overall. [facility] Other 05-04-2022 Evaluation note* Encounter Date Diagnosis [...] Cervical spondylosis with myelopathy (ICD-10 - M47.12) [facility] Other 03-29-2022 NoteEducation Materials Neurology Paresthesia Paresthesia [...] or sweet foods. General instructions ? Take clgp-gio-oczcirw and prescription medicines only as told by [...] provider. Document Revised: 11/22/2019 Document Reviewed: 11/05/2018 [employer] Patient Education ? 2020 [employer] Orthopedics Cubital Tunnel Syndrome Cubital tunnel syndrome [...] ? Playing contact sports, (more content not included)...[facility] 01-14-2022 Evaluation note* Encounter Date Diagnosis Assessment [...] will see him on an as-needed basis. [facility] Other 11-10-2021 Evaluation note* Encounter Date Diagnosis [...] They understand and would like to proceed [facility] Other 09-27-2021 Note [id number]05-23-2021 NoteEducation Materials Orthopedics Wrist Sprain, Adult A [...] health care provider. General instructions ? Take wwdo-cgs-bnucdoa and prescription medicines only as told by [...] provider. Document Revised: 10/09/2018 Document Reviewed: 05/15/2017 [employer] Patient Education ? 2019 [employer] Wrist and Forearm Exercises Ask your health care provider which exercises are safe for you. Do exercises exactly as told by your health care provider and adjust them as directed. It is normal to feel mild stretching, pulling, tightness, or discomfort as you do these exercises. Stop right away if you feel sudden pain or your (more content not included)...[facility]No [facility] [employer] Other evaluation noteNo assessment information available [facility] Work Phone: History general Narrative - Reported* Type Description Date Surgical History (R) carpal tunnel release Surgical History (R) Ulnar nerve release Surgical History tonsillectomy Hospitalization History See Above [facility] Other Hospital Discharge instructions Additional Instructions Use [...] Any unusual redness or drainage contact the [facility] Work Phone: Summary Purpose Family History [...] 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) Referral Organization [facility] urosurgery Referring Provider First Name Harvey Referring Provider Last Name Yanet Referring Provider Specialty Neurosurger y Referred Organization [facility] Referred Provider Jonn Singer Referred Address [address] [place],[address] Referred Provider Specialty Neurology Referral Priority Routine [...] section and content) DATE CREATED AUTHOR 02/16/2022 [place] DATE CREATED AUTHOR AUTHOR'S ORGANIZ ATION 01/23/2023 [facility] DATE CREATED AUTHOR AUTHOR'S ORGANIZ ATION 03/08/2023 [facility] DATE CREATED AUTHOR AUTHOR'S ORGANIZ ATION 10/18/2023 [facility] DATE CREATED AUTHOR AUTHOR'S ORGANIZ ATION 12/11/2023 [facility] REASON FOR VISIT (unrecogniz ed section and content) Referred Dr. Mckenzie Cerv ical Discacdf C3-43 months po ACDFEMG RESULTSright ulnar nerve release4 wk po/ Right ulnar nerve/ [id number] Care Teams (unrecognized sec tion and content) Team Status: Inactive Member Role Status Dates Candida Alexander PA-C Attending Provider Active Britt Penaloza DO Primary Care Provider Active Team Status: Inactive Member Role Status Dates NON STAFF Primary Care Provider Active Candida Alexander PA-C Attending Provider Active Team Status: Active Member Role Status Dates Britt ePnaloza DO Primary Care Provider Active Team Status: Inactive Member Role Status Dates Britt Penaloza DO Primary Care Provider Active Josué Evangelista [...] BE BASED ON THE PRIMARY CLINICAL RECORDS. [facility] [address] [employer] [facility] provides no warranty or guarantee of the accuracy or completeness of information in this document.
[2023-12-22 09:12] VITALS: BP 126/72; PULSE 72; RESP 16; TEMP 36.5; O2SAT 97
[2023-12-22] MEDS: 0.9 % SODIUM CHLORIDE 10 ML INJ (09:57)
[2023-12-22] MEDS: BUPIVACAINE HCL 0.25% PF 25 MG/10 ML VIAL INJ (09:57)
[2023-12-22] MEDS: IOHEXOL 240 MG/ML - 10 ML VIAL INJ (09:57)
[2023-12-22] MEDS: LIDOCAINE HCL 2% PF 100 MG/5 ML VIAL 3 ML INJ (09:57)
[2023-12-22] MEDS: TRIAMCINOLONE ACETONIDE 40 MG/ML VIAL INJ (09:57)
--- NOTE | 2023-12-22 09:59 | W.PM.PROCNOT ---
Date of procedure: 12/22/23 Pre-op diagnosis: Lumbar stenosis with neurogenic claudication Post-op diagnosis: same as pre-op Procedure: Procedure: Bilateral L5-S1 transforaminal epidural steroid injection Medications: Bupivacaine 0.25% 2cc, lidocaine 2% 1cc, kenalog 80mg The patient was seen and examined in the preoperative holding area.? Informed consent was obtained and placed on the chart.? Patient was brought to the medical procedure unit and placed in the prone position where a timeout was completed verifying the correct patient, procedure site, position, and planned special equipment using sterile aseptic technique.? Under direct fluoroscopic visualization a 25-gauge Quincke tipped spinal needle was advanced at level left L5-S1 to the designated neural foramen where contrast dye was injected to show adequate spread.? There was no evidence of vascular or adverse uptake.? Epidural spread was appreciated.? The above-mentioned injectate was then placed in a 1.5 mL aliquot preceded by negative aspiration.? The needle was removed. The same procedure, at the same level, was completed on the opposite side. ? Patient was taken to the postprocedural recovery area and monitored for an appropriate length of time before found suitable for discharge in the accompaniment of a responsible adult. Anesthesia: Local Surgeon: Richard Lezama Pathology: none sent Condition: stable Disposition: no change
[2023-12-22 11:07] VITALS: BP 147/79; BP 157/85; PULSE 67; PULSE 68; RESP 18; O2SAT 97
== END 2023-12-22 10:21 | disposition home or self-care (01) ==
PROVIDERS: PCP Family Medicine; Visit Provider Anesthesiology
DX: M48.062 Spinal stenosis, lumbar region with neurogenic claudication (principal)
CPT/HCPCS: 64483; J0665; J3301; Q9966

== ENCOUNTER 2024-01-12 08:04 | Day surgery (SDC) | payer MEDICAID, SELFPAY ==
--- OUTSIDE RECORDS SUMMARY | 2024-01-12 08:07 | XMS_ITS | CCD ---
Author Name Unknown Address [address] [facility] [facility] [address] [place] [address] Organization [facility] Care Team Providers Care Manager Roofing Name Role Phone Harvey Holt Unavailable NON [...] Britt Primary Care Unavailable Josué Evangelista Unavailable [facility] Primary Care Unava ilable MITCHELL TRAYLOR Admitting Unavailable MERCEDES ENRIQUEZ Consulting Unavailable MITCHELL TRAYLOR Attending Unavailable JONN HARGROVE Consulting Unavailable MITCHELL TRAYLOR Consulting Unavailable MISC, DR GARCIAS Attending Unavailable MISC, DR GARCIAS Consulting Unavailable [facility] Primary Care Unava ilable DR KATERINE GARCIA Admitting Unavailable RUMSCHLAG, BRITT Primary Care Unavailable YVONNE CAMARENA Referring Unavailable YVONNE CAMARENA Referring Unavailable BRITT PENALOZA Primary Care Unavailable CANDIS RENTERIA Admitting Unavailable CANDIS RENTERIA Attending Unavailable BRITT PENALOZA Primary Care Unavailable Lise RAWLS, Richard Guaman Attending Unavailable Lise RAWLS, Richard Guaman Attending Unavailable Allergies Allergy Classification Reported Allergen(s) Allergy Type Date of Onset Reaction(s) Facility (7 sources) penicillAMINE Drug Allergy Unknown [facility] Other (7 sources) Bee Sting Drug allergy Unknown [facility] Other (5 sources) Penicillins; Translations: [Penicillins] Allergy to substance 20 21 Unknown Reaction [facility] (5 sources) venom-honey bee; Translations: [venom-honey bee] Allergy to substance 20 21 Swelling [facility] (1 source) bee venom Drug allergy (disorder) [facility] Repository (1 source) Penicillin Drug Allergy [facility] Repository Medications Current Medications Medication [...] Exam NEGATIVE Report Status FINAL 10/16/2023 Normal [facility] Comment on above: Performed By: #### F HPY #### [place] [address] [place], [place] [id number] Front End Technician: Guy Ramey MD [facility] [address] [place] [address] Front End Technician: Justus Darby MD Surgical Pathology Reporton 10-15-2023 Surgical Pathology Report (NOTE) Path Number: [id number] -- Diagnosis -- A. GE junction, endoscopic [...] GASTRIC ANTRUM BIOPSY Gross Description A. ROSA TERVIÑOLUIS GE JUNCTION BIOPSY Received in formalin are [...] for each. Microscopic examination performed. Processing Lab: [address] [id number] Interpretation Performed at [address] [id number] SURGICAL PATHOLOGY CONSULTATION Patient Name: ROSA EASTMAN [facility] Rec: [id number] [facility] ANATOMIC PATHOLOGY [address] [place] [address]. [place], [place] [address] Normal [facility] CBC with Diffon 10-14-2023 Abs. Basophil 0.17 k/uL Normal 0.00-0.20 [facility] Comment on above: Performed By: #### C DP #### [facility] [address] [place] [address] Dr. [place], [place] [address] Front End Technician: Justus Darby MD Abs.Imm.Granulocyte 0.04 k/uL Normal 0.00-0.30 [facility] Comment on above: Performed By: #### C DP #### [address] [place] [address] Front End Technician: Justus Darby MD Abs.Neutrophil (Seg) 5.08 k/uL Normal 1.50-8.10 [facility] Comment on above: Performed By: #### C DP #### [address] [place] [id number] Front End Technician: Justus Darby MD Basophils/100 WBC (Bld) 2 % Normal 0-2 [facility] Comment on above: Performed By: #### C DP #### [address] [place] [address] Front End Technician: Justus Darby MD Eosinophils (Bld) [#/Vol] 0.43 10*3/uL Normal 0.00-0.44 [facility] Comment on above: Performed By: #### C DP #### [address] [place] [address] Front End Technician: Justus Darby MD Eosinophils/100 WBC (Bld) 4 % Normal 1-4 [facility] Comment on above: Performed By: #### C DP #### [address] Garcia, [facility]83 Front End Technician: Justus Darby MD Erythrocyte distribution width (RBC) [Ratio] 12.3 % Normal 11.8-14.4 [facility] Comment on above: Performed By: #### C DP #### [address] [place] [id number] Front End Technician: Justus Darby MD Hematocrit (Bld) [Volume fraction] 44.4 % Normal 40.7-50.3 [facility] Comment on above: Performed By: #### C DP #### [facility] [address] [place], [facility]83 Front End Technician: Justus Darby MD Hemoglobin (Bld) [Mass/Vol] 14.6 g/dL Normal 13.0-17.0 [facility] Comment on above: Performed By: #### C DP #### [facility] [address] [place], [facility]83 Front End Technician: Justus Darby MD Immature granulocytes/100 WBC (Bld) 0 % Normal 0 [facility] Comment on above: Performed By: #### C DP #### [address] [place], [place] [address] Front End Technician: Justus Darby MD Lymphocytes (Bld) [#/Vol] 3.86 10*3/uL High 1.10-3.70 [facility] Comment on above: Performed By: #### C DP #### [facility] [address] [place] [address] Dr. Garcia, [place] [address] Front End Technician: Justus Darby MD Lymphocytes/100 WBC (Bld) 36 % Normal 24-43 [facility] Comment on above: Performed By: #### C DP #### [facility] [address] [place] [address] Dr. Garcia, [facility]83 Front End Technician: Justus Darby MD MCH (RBC) [Entitic mass] 30.9 pg Normal 25.2-33.5 [facility] Comment on above: Performed By: #### C DP #### [facility] [address] [place] [address] Dr. Garcia, [facility]83 Front End Technician: Justus Darby MD MCHC (RBC) [Mass/Vol] 32.9 g/dL Normal 28.4-34.8 [facility] Comment on above: Performed By: #### C DP #### [facility] [address] [place], [place] [id number] Front End Technician: Justus Darby MD MCV (RBC) [Entitic vol] 93.9 fL Normal 82.6-102.9 M [facility] Comment on above: Performed By: #### C DP #### [facility] [address] [place] [id number] Front End Technician: Justus Darby MD Monocytes (Bld) [#/Vol] 1.05 10*3/uL Normal 0.10-1.20 [facility] Comment on above: Performed By: #### C DP #### [address] Garcia, [place] [id number] Front End Technician: Justus Darby MD Monocytes/100 WBC (Bld) 10 % Normal 3-12 M [facility] Comment on above: Performed By: #### C DP #### [address] [place], [place] [id number] Front End Technician: Justus Darby MD Neutrophil (Seg) 48 % Normal 36-65 [facility] Comment on above: Performed By: #### C DP #### [address] Garcia [facility]83 Front End Technician: Justus Darby MD NRBC Automated 0.0 per 100 WBC Normal 0.0 [facility] Comment on above: Performed By: #### C DP #### [facility] [address] [place] [address] Dr. [place], [place] [id number] Front End Technician: Justus Darby MD Platelet mean volume (Bld) [Entitic vol] 9.6 fL Normal 8.1-13.5 [facility] Comment on above: Performed By: #### C DP #### [address] [place] [id number] Front End Technician: Justus Darby MD Platelets (Bld) [#/Vol] 297 10*3/uL Normal 138-453 [facility] Comment on above: Performed By: #### C DP #### [facility] [address] [place], [place] [id number] Front End Technician: Justus Darby MD RBC (Bld) [#/Vol] 4.73 10*6/uL Normal 4.21-5.77 [facility] Comment on above: Performed By: #### C DP #### [facility] [address] [place] [id number] Front End Technician: Justus Darby MD WBC (Bld) [#/Vol] 10.6 10*3/uL Normal 3.5-11.3 [facility] Comment on above: Performed By: #### C DP #### [facility] [address] [place], [place] [id number] Front End Technician: Justus Darby MD Basic Metabolic Panelon 03-0 Anion gap [Moles/Vol] 9.8 mmol/L Normal 6.0-15.0 [facility] Comment on above: Performed By: #### C BC, BMP #### [facility] [address] Calcium [Mass/Vol] 9.1 mg/dL Normal 8.2-10.2 [facility] Comment on above: Result Comment: PERF ORMED BY: [address] [place] [address] PATHOLOGIST [employer] OPERATOR GENEVIEVE CANNON M.D. Performed By: #### C BC, BMP #### [facility] [address] [place] [address] [place] Chloride [Moles/Vol] 104 mmol/L Normal 95-[address] [facility] Comment on above: Performed By: #### C BC, BMP #### [facility] [address] [place] [address] [place] CO2 [Moles/Vol] 25.9 mmol/L Normal 22.0-30.0 [facility] Comment on above: Performed By: #### C BC, BMP #### [facility] [address] Creatinine [Mass/Vol] 0.98 mg/dL Normal 0.64-1.27 [facility] Comment on above: Performed By: #### C BC, BMP #### [facility] [address] Estimated GFR ( Camila > 60 Normal [facility] Comment on above: Result Comment: GFR estimated reference range: According to KDOQI guidelines, <60 ml/min/1.73m2 is sufficient to diagnose a patient with chronic kidney disease. Performed By: #### C BC, BMP #### [facility] [address] Estimated GFR (Non- Am > 60 Normal [facility] Comment on above: Performed By: #### C BC, BMP #### [address] Glucose [Mass/Vol] 82 mg/dL Normal 70-100 [facility] Comment on above: Result Comment: Stanley om Glucose Reference Range is dependent on time and content of last meal. Glucose of more than 200 mg/dL in a nonstressed, ambulatory subject supports the diagnosis of Diabetes Mellitus. ADA recommended reference range Performed By: #### C BC, BMP #### [facility] [address] [place] [address] [place] Potassium [Moles/Vol] 3.7 mmol/L Normal 3.5-5.1 [facility] Comment on above: Performed By: #### C BC, BMP #### [facility] [address] [place] [id number] [place] Sodium [Moles/Vol] 136 mmol/L Normal 136-146 [facility] Comment on above: Performed By: #### C BC, BMP #### [facility] [address] [place] [address] [place] Urea nitrogen [Mass/Vol] 11 mg/dL Normal 9-23 [facility] Comment on above: Performed By: #### C BC, BMP #### [facility] [address] [place] [address] [place] Basophils Auto (Bld) [#/Vol] Ordered By: Josué Evangelista on 01-13-2023 Basophils (Bld) [#/Vol] 0.1 10*3/uL 0.0-0.2 [facility] Basophils/100 WBC Auto (Bld) Ordered By: Josué Evangelista on 01-13-2023 Basophils/100 WBC (Bld) 1.2 % . [facility] Calcium [Mass/volume] in Ser um or PlasmaOrdered By: Josué Evangelista on 01-13-2023 Calcium [Mass/Vol] 9.1 mg/dL 8.2-10.2 [facility] Carbon dioxide, total [Moles /volume] in Serum or PlasmaOrdered By: Josué Evangelista on 01-13-2023 CO2 [Moles/Vol] 25.9 mmol/L 22.0-30.0 [facility] Chloride [Moles/volume] in S lai or PlasmaOrdered By: Josué Evangelista on 01-13-2023 Chloride [Moles/Vol] 104 mmol/L 95-[address] [facility] Complete Blood Count Auto Di ffon 01-13-2023 Basophils (Bld) [#/Vol] 0.1 10*3/uL Normal 0.0-0.2 [facility] Comment on above: Result Comment: PERF ORMED BY: [place] [address] PATHOLOGIST WATERWORKS OPERATOR GENEVIEVE CANNON M.D. Performed By: #### C MICHELLE, BMP #### [facility] [address] [place] [address] [place] Basophils/100 WBC (Bld) 1.2 % Normal . [facility] Comment on above: Performed By: #### C MICHELLE, BMP #### [facility] [address] [place] [address] [place] Eosinophils (Bld) [#/Vol] 0.5 10*3/uL High 0.0-0.45 [facility] Comment on above: Performed By: #### C MICHELLE, BMP #### [address] Eosinophils/100 WBC (Bld) 4.7 % Normal . [facility] Comment on above: Performed By: #### C BC, BMP #### [address] Erythrocyte distribution width (RBC) [Ratio] 12.6 % Normal 12.0-14.8 [facility] Comment on above: Performed By: #### C BC, BMP #### [address] Hematocrit (Bld) [Volume fraction] 41.2 % Normal 38.8-50.0 [facility] Comment on above: Performed By: #### C BC, BMP #### [address] Hemoglobin (Bld) [Mass/Vol] 14.1 g/dL Normal 13.0-17.0 [facility] Comment on above: Performed By: #### C BC, BMP #### [address] Lymphocytes (Bld) [#/Vol] 3.4 10*3/uL Normal 1.00-4.8 [facility] Comment on above: Performed By: #### C BC, BMP #### [address] Lymphocytes/100 WBC (Bld) 33.3 % Normal . [facility] Comment on above: Performed By: #### C BC, BMP #### [address] MCH (RBC) [Entitic mass] 31.7 pg Normal 27.5-35.2 [facility] Comment on above: Performed By: #### C BC, BMP #### [address] MCV (RBC) [Entitic vol] 92.3 fL Normal 83.5-101 [facility] Comment on above: Performed By: #### C BC, BMP #### [address] Mean Corpuscular HGB Conc 34.4 g/dL Normal 32.5-35.6 [facility] Comment on above: Performed By: #### C BC, BMP #### [address] Monocytes (Bld) [#/Vol] 1.0 10*3/uL High 0.0-0.8 [facility] Comment on above: Performed By: #### C BC, BMP #### [address] Monocytes/100 WBC (Bld) 10.1 % Normal . [facility] Comment on above: Performed By: #### C BC, BMP #### [address] Neutrophils (Bld) [#/Vol] 5.2 10*3/uL Normal 1.8-7.7 [facility] Comment on above: Performed By: #### C BC, BMP #### [address] Neutrophils/100 WBC (Bld) 50.7 % Normal . [facility] Comment on above: Performed By: #### C BC, BMP #### [address] NRBC% 0.1 /100{WBC} Normal 0-0.5 [facility] Comment on above: Performed By: #### C BC, BMP #### [address] Platelet mean volume (Bld) [Entitic vol] 7.8 fL Normal 6.6-10.1 [facility] Comment on above: Performed By: #### C BC, BMP #### [address] Platelets (Bld) [#/Vol] 268 10*3/uL Normal 150-450 [facility] Comment on above: Performed By: #### C BC, BMP #### [place] [address] [place] RBC (Bld) [#/Vol] 4.46 10*6/uL Normal 3.90-5.60 [facility] Comment on above: Performed By: #### C MICHELLE, BMP #### [facility] [address] WBC (Bld) [#/Vol] 10.3 10*3/uL Normal 4.1-10.5 [facility] Comment on above: Performed By: #### C MICHELLE, BMP #### [facility] [address] [place] [address] Creatinine and Glomerular fi ltration rate.predicted panel (S/P/Bld)Ordered By: Josué Evangelista on 01-13-2023 Creatinine [Mass/Vol] 0.98 mg/dL 0.64-1.27 [facility] ECG 12 lead ECGon 01-13-2023 ECG 12 lead ECG [facility] Main [place] [address] [place] [address] Electrocardiograph Report Signed Patient: Rosa Eastman MR#: [id number] : 1965 Acct:[id number] Age/Sex: 57 / M ADM Date: 01/13/23 Loc: Room: Type: [facility] Attending Dr: Josué Evangelista MD Ordering Provider: [...] Marylin Eisenberg MD 0 01/14/23 1534 Normal [facility] Eosinophils Auto (Bld) [#/Vo l]Ordered By: Josué Evangelista on 01-13-2023 Eosinophils (Bld) [#/Vol] 0.5 10*3/uL 0.0-0.45 [facility] Eosinophils/100 WBC Auto (Bl d)Ordered By: Josué Evangelista on 01-13-2023 Eosinophils/100 WBC (Bld) 4.7 % . [facility] Erythrocyte distribution wid th Auto (RBC) [Ratio]Ordered By: Josué Evangelista on 01-13-2023 Erythrocyte distribution width (RBC) [Ratio] 12.6 % 12.0-14.8 [facility] Estimated glomerular filtrat ion rate (GFR) non- AmericanOrdered By: Josué Evangelista on 01-13-2023 GFR/1.73 sq M.predicted among non-blacks MDRD (S/P/Bld) [Vol rate/Area] > 60 mL/Min [facility] Glucose [Mass/volume] in Ser um or PlasmaOrdered By: Josué Evangelista on 01-13-2023 Glucose [Mass/Vol] 82 mg/dL 70-100 [facility] Comment on above: ADA recommended refe rence rangeRandom Glucose Reference Range is dependent on time and content of last meal. Glucose of more than 200 mg/dL in a nonstressed, ambulatory subject supports the diagnosis of Diabetes Mellitus. Hematocrit Auto (Bld) [Volum e fraction]Ordered By: Josué Evangelista on 01-13-2023 Hematocrit (Bld) [Volume fraction] 41.2 % 38.8-50.0 [facility] Hemoglobin [Mass/volume] in BloodOrdered By: Josué Evangelista on 01-13-2023 Hemoglobin (Bld) [Mass/Vol] 14.1 g/dL 13.0-17.0 [facility] Leukocytes [#/volume] correc lesly for nucleated erythrocytes in Blood by Automated counOrdered By: Josué Evangelista on 01-13-2023 WBC corrected for nucl RBC Auto (Bld) [#/Vol] 10.3 10*3/uL 4.1-10.5 [facility] Lymphocytes Auto (Bld) [#/Vo l]Ordered By: Josué Evangelista on 01-13-2023 Lymphocytes (Bld) [#/Vol] 3.4 10*3/uL 1.00-4.8 [facility] Lymphocytes/100 WBC Auto (Bl d)Ordered By: Josué Evangelista on 01-13-2023 Lymphocytes/100 WBC (Bld) 33.3 % . [facility] MCH Auto (RBC) [Entitic mass ]Ordered By: Josué Evangelista on 01-13-2023 MCH (RBC) [Entitic mass] 31.7 pg 27.5-35.2 [facility] MCHC Auto (RBC) [Mass/Vol]Or dered By: Josué Evangelista on 01-13-2023 MCHC (RBC) [Mass/Vol] 34.4 g/dL 32.5-35.6 [facility] MCV Auto (RBC) [Entitic vol] Ordered By: Josué Evangelista on 01-13-2023 MCV (RBC) [Entitic vol] 92.3 fL 83.5-101 [facility] Monocytes Auto (Bld) [#/Vol] Ordered By: Josué Evangelista on 01-13-2023 Monocytes (Bld) [#/Vol] 1.0 10*3/uL 0.0-0.8 [facility] Monocytes/100 WBC Auto (Bld) Ordered By: Josué Evangelista on 01-13-2023 Monocytes/100 WBC (Bld) 10.1 % . [facility] Neutrophils Auto (Bld) [#/Vo l]Ordered By: Josué Evangelista on 01-13-2023 Neutrophils (Bld) [#/Vol] 5.2 10*3/uL 1.8-7.7 [facility] Neutrophils/100 WBC Auto (Bl d)Ordered By: Josué Evangelista on 01-13-2023 Neutrophils/100 WBC (Bld) 50.7 % . [facility] No Panel InformationOrdered By: Josué Evangelista on 01-13-2023 Estimated GFR () > 60 mL/Min [facility] Comment on above: GFR estimated refere nce range: According to KDOQI guidelines, <60 ml/min/1.73m2 is sufficient to diagnose a patient with chronic kidney disease. Pharmacy Creatinine Clearance (Chem N/A [facility] Nucleated erythrocytes [Pres ence] in Blood by Automated countOrdered By: Josué Evangelista on 01-13-2023 Nucleated RBC Auto Ql (Bld) 0.1 /100{WBC} 0-0.5 [facility] Platelet mean volume Auto (B ld) [Entitic vol]Ordered By: Josué Evangelista on 01-13-2023 Platelet mean volume (Bld) [Entitic vol] 7.8 fL 6.6-10.1 [facility] Platelets Auto (Bld) [#/Vol] Ordered By: Josué Evangelista on 01-13-2023 Platelets (Bld) [#/Vol] 268 10*3/uL 150-450 [facility] Potassium [Moles/volume] in Serum or PlasmaOrdered By: Josué Evangelista on 01-13-2023 Potassium [Moles/Vol] 3.7 mmol/L 3.5-5.1 [facility] RBC Auto (Bld) [#/Vol]Ordere d By: Josué Evangelista on 01-13-2023 RBC (Bld) [#/Vol] 4.46 10*6/uL 3.90-5.60 [facility] Serum or plasma anion gap de terminationOrdered By: Josué Evangelista on 01-13-2023 Anion gap [Moles/Vol] 9.8 mmol/L 6.0-15.0 [facility] Sodium [Moles/volume] in Ser um or PlasmaOrdered By: Josué Evangelista on 01-13-2023 Sodium [Moles/Vol] 136 mmol/L 136-146 [facility] Urea nitrogen [Mass/volume] in Serum or PlasmaOrdered By: Josué Evangelista on 01-13-2023 Urea nitrogen [Mass/Vol] 11 mg/dL 9-23 [facility] WBC Auto (Bld) [#/Vol]Ordere d By: Josué Evangelista on 01-13-2023 WBC (Bld) [#/Vol] 10.3 10*3/uL 4.1-10.5 [facility] XR cerv spine AP/LAT/FLX/EXT on 12-06-2022 XR cerv spine AP/LAT/FLX/EXT [address] [address] XRay Report Signed Patient: Rosa Eastman MR#: [id number] : 1965 Acct:[id number] Age/Sex: 57 / M ADM Date: 12/06/22 Loc: XD Room: Type: [facility] Attending Dr: Josué Evangelista MD Copies to: [...] Erasmo Maddox M.D.12/06/2022 2:26 PM Dictation Location: [place] [address] Transcribed By: [facility] 12/06/221425 Dictated By: Erasmo Maddox DO 12/06/221421 Signed By: 12/06/22 142 [facility] CBC AUTO DIFFon 08-10-2022 BASO # 0.2 103/ul Critically high 0.0-0.1 [facility] Comment on above: Performed By: #### C BC #### [facility] [address] [place] [address] [address] Mars Sanders Basophils/100 WBC (Bld) 2.0 % Normal 0.2-2.0 [facility] Comment on above: Performed By: #### C BC #### [facility] [address] [place] [address] [address] Mars Sanders EO # 0.5 103/ul Normal 0.0-0.7 [facility] Comment on above: Performed By: #### C BC #### [facility] [address] [place] [address] Dr. Mars Sanders Eosinophils/100 WBC (Bld) 5.7 % Normal 0.9-7.0 [facility] Comment on above: Performed By: #### C BC #### [facility] [address] [place] [address] Dr. Mars Sanders Erythrocyte distribution width (RBC) [Ratio] 12.4 % Normal 11.0-15.0 [facility] Comment on above: Performed By: #### C BC #### [facility] [address] [place] [address] Dr. Mars Sanders Hematocrit (Bld) [Volume fraction] 41.8 % Critically low 42.0-54.0 [facility] Comment on above: Performed By: #### C BC #### [facility] [address] [place] [address] Dr. Mars Sanders Hemoglobin (Bld) [Mass/Vol] 14.0 g/dL Normal 14.0-18.0 [facility] Comment on above: Performed By: #### C BC #### [facility] [address] [place] [address] Dr. Mars Sanders IG # 0.02 10e3/ul Normal 0.00-0.03 [facility] Comment on above: Performed By: #### C BC #### [facility] [address] [place] [address] Dr. Mars Sanders IG % 0.2 % Normal 0.0-0.5 [facility] Comment on above: Performed By: #### C BC #### [facility] [address] [place] [address] Dr. Mars Sanders LYMPH # 3.1 103/ul Normal 1.2-3.8 [facility] Comment on above: Performed By: #### C BC #### [facility] [address] [place] [address] Dr. Mars Sanders Lymphocytes/100 WBC (Bld) 36.3 % Normal 20.5-60.0 [facility] Comment on above: Performed By: #### C BC #### [facility] [address] [place] [address] Dr. Mars Sanders MANUAL DIFF REQ NO Normal [facility] Comment on above: Performed By: #### C BC #### [facility] [address] [place] [address] Dr. Mars Sanders MCH (RBC) [Entitic mass] 31.4 pg Normal 25.9-34.0 [facility] Comment on above: Performed By: #### C BC #### [facility] [address] [place] [address] Dr. Mars Sanders MCHC (RBC) [Mass/Vol] 33.5 g/dL Normal 29.9-35.2 [facility] Comment on above: Performed By: #### C BC #### [facility] [address] [place] [address] Dr. Mars Sanders MCV (RBC) [Entitic vol] 93.7 fL Normal 80.0-94.0 [facility] Comment on above: Performed By: #### C BC #### [facility] [address] [place] [address] Dr. Mars Sanders MONO # 0.8 103/ul Normal 0.3-0.8 [facility] Comment on above: Performed By: #### C BC #### [facility] [address] [place] [address] Dr. Mars Sanders Monocytes/100 WBC (Bld) 10.0 % Normal 1.7-12.0 [facility] Comment on above: Performed By: #### C BC #### [facility] [address] [place] [address] Dr. Mars Sanders NEUT # 3.9 103/ul Normal 1.4-6.5 [facility] Comment on above: Performed By: #### C BC #### [facility] [address] [place] [address] Dr. Mars Sanders Neutrophils/100 WBC (Bld) 45.8 % Normal 43.0-75.0 [facility] Comment on above: Performed By: #### C BC #### [facility] [address] [place] [address] Dr. Mars Sanders Platelet mean volume (Bld) [Entitic vol] 9.4 fL Critically low 9.5-13.5 [facility] Comment on above: Performed By: #### C BC #### [facility] [address] [place] [address] Dr. Mars Sanders PLT 251 103/ul Normal 150-450 [facility] Comment on above: Performed By: #### C BC #### [facility] [address] [place] [address] Dr. Mars Sanders RBC 4.46 106/ul Critically low 4.70-6.10 [facility] Comment on above: Performed By: #### C BC #### [facility] [address] [place] [address] Dr. Mars Sanders WBC 8.4 103/ul Normal 4.0-11.0 [facility] Comment on above: Performed By: #### C BC #### [facility] [address] [place] [address] Dr. Mars Sanders D-DIMERon 08-10-2022 D-DIMER 0.35 mg/L FEU Normal <=0.59 [facility] Comment on above: Performed By: #### D DIM #### [facility] [address] [place] [address] Dr. Mars Sanders D-DIMER COMMENTS SEE BELOW Normal [facility] Comment on above: Result Comment: Incr eases [...] hospitalization. Performed By: #### D DIM #### [facility] [address] [address] [address] Mars Sanders PROF 14(COMP METB)on 022 Albumin [Mass/Vol] 3.8 g/dL Normal 3.4-5.0 [facility] Comment on above: Performed By: #### H STROPN, CMP #### [facility] [address] [address] [address] Mars Sanders Albumin/Globulin [Mass ratio] 1.0 {ratio} Normal [facility] Comment on above: Performed By: #### H STROPN, CMP #### [facility] [address] [address] [address] Mars Sanders ALP [Catalytic activity/Vol] 127 U/L Critically high 46-116 [facility] Comment on above: Performed By: #### H ALESSIO, CMP #### [facility] [address] [place] [address] Dr. Mars Sanders ALT [Catalytic activity/Vol] 30 U/L Normal 16-63 [facility] Comment on above: Performed By: #### H MIKEYPN, CMP #### [facility] [address] [address] [address] Mars Sanders Anion gap [Moles/Vol] 13.5 mmol/L Normal [facility] Comment on above: Performed By: #### H ALESSIO, CMP #### [facility] [address] [address] [address] Mars Sanders AST [Catalytic activity/Vol] 20 U/L Normal 15-37 [facility] Comment on above: Performed By: #### H STROPN, CMP #### [facility] [address] [address] [address] Mars Sanders Bilirubin [Mass/Vol] 0.3 mg/dL Normal 0.2-1.0 [facility] Comment on above: Performed By: #### H STROPN, CMP #### [facility] [address] [address] [address] Mars Sanders Calcium [Mass/Vol] 8.7 mg/dL Normal 8.5-10.1 [facility] Comment on above: Performed By: #### H STROPN, CMP #### [facility] [address] [address] [address] Mars Sanders Chloride [Moles/Vol] 105 mmol/L Normal 98-107 [facility] Comment on above: Performed By: #### H STROPN, CMP #### [facility] [address] [address] [address] Mars Sanders CO2 [Moles/Vol] 25.4 mmol/L Normal 21.0-32.0 [facility] Comment on above: Performed By: #### H STROPN, CMP #### [facility] [address] [address] [address] Mars Sanders Creatinine [Mass/Vol] 0.98 mg/dL Normal 0.70-1.30 [facility] Comment on above: Performed By: #### H STROPN, CMP #### [facility] [address] [address] [address] Mars Sanders EGFR-AF [place] >60 Normal >=60 [facility] Comment on above: Performed By: #### H STROPN, CMP #### [facility] [address] [address] [address] Mars aSnders EGFR-NON AF [place] >60 Normal >=60 [facility] Comment on above: Performed By: #### H STROPN, CMP #### [facility] [address] [address] [address] Mars Sanders Globulin (S) [Mass/Vol] 3.9 g/dL Normal [facility] Comment on above: Performed By: #### H STROPN, CMP #### [facility] [address] [address] [address] Mars Sanders Glucose [Mass/Vol] 102 mg/dL Normal 74-106 [facility] Comment on above: Performed By: #### H STROPN, CMP #### [facility] [address] [address] [address] Mars Sanders Potassium [Moles/Vol] 3.9 mmol/L Normal 3.5-5.1 [facility] Comment on above: Performed By: #### H STROPN, CMP #### [facility] [address] [address] [address] Mars Sanders Protein [Mass/Vol] 7.7 g/dL Normal 6.4-8.2 [facility] Comment on above: Performed By: #### H STROPN, CMP #### [facility] [address] [place] [address] Dr. Mars Sanders Sodium [Moles/Vol] 140 mmol/L Normal 136-145 [facility] Comment on above: Performed By: #### H STROPN, CMP #### [facility] [address] [place] [address] Dr. Mars Sanders Urea nitrogen [Mass/Vol] 14.0 mg/dL Normal 7.0-18.0 [facility] Comment on above: Performed By: #### H STROPN, CMP #### [facility] [address] [place] [address] Dr. Mars Sanders Urea nitrogen/Creatinine [Mass ratio] 14.3 mg/mg Normal [facility] Comment on above: Performed By: #### H STROPN, CMP #### [facility] [address] [place] [address] Dr. Mars Sanders PROTIMEon 08-10-2022 INR Coag (PPP) [Relative time] 0.95 {INR} Normal [facility] Comment on above: Performed By: #### P T, PTT #### [facility] [address] [place] [address] Dr. Mars Sanders INR GUIDELINES SEE BELOW Normal [facility] Comment on above: Result Comment: EDU RED INR: 2.0 - 3.0 CONDITIONS NOT LISTED BELOW 2.5 - 3.5 FOR PROSTHETIC HEART VALVE REPLACEMENT 2.5 - 3.5 RECURRENT THROMBOSIS Performed By: #### P T, PTT #### [facility] [address] [place] [address] Dr. Mars Sanders PT Coag (PPP) [Time] 10.3 s Normal 9.0-11.6 [facility] Comment on above: Performed By: #### P T, PTT #### [facility] [address] [address] [address] Mars Sanders PTTon 08-10-2022 aPTT Coag (Bld) [Time] 29.9 s Normal 22.3-36.2 Th e [facility] Comment on above: Performed By: #### P T, PTT #### [facility] [address] [address] [address] Mars Sanders TROPONIN, HIGH SENSITIVITYon 08-10-2022 HSTROP 12.3 pg/mL Normal 4.0-76.1 [facility] Comment on above: Result Comment: CUT- OFF POINTS HAVE BEEN ESTABLISHED BASED ON THE FOURTH UNIVERSAL DEFINITIONS OF MYOCARDIAL INFARCTION. THE UPPER REFERENCE LIMIT (URL) OF TROPONIN, DEFINED THE 99TH PERCENTILE OF cTnI DISTRIBUTION IN A REFERENCE POPULATION, HAS BEEN CONFIRMED THE DECISION THRESHOLD FOR DC DIAGNOSIS. Performed By: #### H STROPN, CMP #### [facility] [address] [address] [address] Mars Sanders XR CHEST 1 Von [...] by: JONN HARGROVE Date: 2022-08-10 18:59 Normal [facility] MR head/brain wo conon 07-08 MR head/brain wo [facility] [place] [address] MRI Report Signed Patient: Rosa Eastman MR#: [id number] : [id number] Acct:[id number] Age/Sex: 57 / M ADM Date: 07/08/22 [facility]: Candida Alexander PA-C Copies to: [...] Rob Funez M.D.07/08/2022 1:37 PM Dictation Location: [place] [address] Transcribed By: [facility] 07/08/22 1337 Dictated By: Rob Funez II, MD 07/08/22 1334 Signed By: 07/08/22 1337 Normal [facility] Folate [Mass/volume] in Seru m or PlasmaOrdered By: Candida Alexander on 06-21-2022 Folate [Mass/Vol] 7.4 ng/mL >5.9 [place] Comment on above: Folate reference ran ge: >5.9 ng/ml The WHO technical consultation on folate and vitamin b12 deficiencies has determined that folate concentrations less than 4 ng/ml are considered deficient. Free T4 (Free Thyroxine)on 0 06-21-2022 Free T4 [Mass/Vol] 0.77 ng/dL Normal 0.61-1.12 [facility] Comment on above: Performed By: #### V [id number], T4F, TSH3 #### [address] #### METH #### [facility] , Laboratory - Chemistry and C hemistry - challengeOrdered By: Candida Alexander on 06-21-2022 Cobalamin (Vitamin B12) [Mass/Vol] 369 pg/mL 180-914 [facility] Methylmalonic Acidon 022 Methylmalonic Acid 241 Normal 0-378 [facility] Comment on above: Result Comment: This test was developed and its performance characteristics determined by [facility]. It has not been cleared or approved by the Food and Drug Administration. Performed at: [address] [id number] Front End Technician: Millicent Calderon MD, Phone: [phone] PERFORMED BY: [place] [address] PATHOLOGIST WATERWORKS OPERATOR GENEVIEVE CANNON M.D. Performed By: #### V [id number], T4F, TSH3 #### [address] #### METH #### [facility] , Serum or plasma methylmalona te measurement (moles/volume)Ordered By: Candida Alexander on 06-21-2022 Methylmalonate [Moles/Vol] 241 nmol/L 0-378 [facility] Comment on above: This test was develo ped and its performance characteristics determined by [facility]. It has not been cleared or approved by the Food and Drug Administration. Performed at: [facility] [address] [id number] Front End Technician: Millicent Calderon MD, Phone: [phone] TSH DL <= 0.005 mIU/L QnOrde red By: Candida Alexander on 06-21-2022 TSH Qn 2.46 m[IU]/L 0.45-5.33 [facility] Thyroid Stimulating Hormoneo n 06-21-2022 TSH Qn 2.46 m[IU]/L Normal 0.45-5.33 [facility] Comment on above: Result Comment: PERF ORMED BY: [place] [address] PATHOLOGIST WATERWORKS OPERATOR GENEVIEVE CANNON M.D. Performed By: #### V [id number], T4F, TSH3 #### [place] [address] [place] #### METH #### [facility] , Thyroxine (T4) free [Mass/vo lume] in Serum or PlasmaOrdered By: Candida Alexander on 06-21-2022 Free T4 [Mass/Vol] 0.77 ng/dL 0.61-1.12 [facility] Vit. B12/Folate Profileon Cobalamin (Vitamin B12) [Mass/Vol] 369 pg/mL Normal 180-914 [facility] Comment on above: Performed By: #### V [id number], T4F, TSH3 #### [place] [address] [place] #### METH #### [facility] , Folate 7.4 ng/mL Normal >5.9 [facility] Comment on above: Result Comment: Rosa M te reference range: >5.9 ng/ml The WHO technical consultation on folate and vitamin b12 deficiencies has determined that folate concentrations less than 4 ng/ml are considered deficient. Performed By: #### V [id number], T4F, TSH3 #### [place] [address] [place] #### METH #### [facility] , Coding Summaryon 02-13-2022 Coding Summary HTMLBase 64 CqgoxveyKCs1xYf+PGhl YWQ+HM7IPJBzA22cxJNr fE7ZC6hJSM7YBFUVNSXB TG8ELY7ulMZ7WXtwG1Lc biAv YprchNCjND56BLr3LHN9 nDtoVDpotP1fvNPkK1c3 ZjMhNP19sM57YMsaRXMt KiY6DkNprfyciKPq S2lmIoJhjCHiVhg+PHRh YmxlIHdpZHRoPScxMDAl WtMdhXhvBX1bRd8iUXEo LWNvbGxhcHNlOiBj r2thFIOdXCslRV4ufFrr Z4DueAM1RXSmz6h9Hi28 dHI+EGYjHUI3zMfwXZrp b818GhAfa3xmNXH9 rIPiSJgrZPH9I85pj2W8 XQBsQNAtXFL7iNF9dZ3s oSdvvfrkW9FrnVTpHvH3 CIV8iJMwrQ5toLzp wghslI2tAio+H94ICT7K UTGEWR1QMir4D7WwFszg dHI+HV17OYBtOY87aQQt yFNrp1ehnEw4IrFb CIVkOQR1oUcdGHlgl0Ri WBCtX06cmMYos5L2WCGh iSakiCLqLcLgdKW3qR0h BXcfwhzfn1rxxlak Zwjsr2iqqd04eJ89M10n MQrqSCVuFBA9IBBwRSFu oSrlek8kzG9mZv7+IDxj f5fhs4ywxPp5BsTb SERlcbPjaQawBRJ4a6Fh Wd66W7AiwYwwt3XyLlw6 us05fWJsl6E7tZL7KQtf KGLnyZ9jSIrtUiV4 TSXyVqRluR28eXOfERir Dj7idYcmeOheWR5sORJb ywqsKZYlgM1xQQQvcPBo jJadUZ8cKARzxjxx h352WsFjXRI4CNMgqALu M2MjpA6cUlAzQQPwNQKe X1VgnNSrCZzvN132PMgb UsX5HFLevzIdU9Nf WIIawVrzPlE4z6C3Nr0P t0TkylrfJGD1BTqpMTW7 KpD5AkJxKrV2C9IzChs1 INSciHpeZD1zZ9Ii VVUhnnonqqdyvYX5TIKf ZERefB89aMKzXGoeQa9b w0T9w549STXuYANmdG97 Hr3ktDqdJERrhUQE zK6mjhgnw5idfapwRnQz SRYlSEs3EYj8RRUkzVce UrGuBPX6EiC7GJE1xMNu zT3ggNkrigslpD4q Oyc+X50cpM9tNOK4GLM5 xkjjLBZcswJqRE35GK82 Y8BxZsftxADabNJ+PGRp jrQraKpuNY5vXvGm x0gri7GnAEoeN5XbLARj NHmlFnb2IRIiLAD6wEX8 qO3wRZRoPIgnp6G1fLH0 L4JhykErkh3yb0vj ASRqYCqhQ85tiOAue8D4 GELspNM6GZXwqYkbIxVk qT91Boe+RTBinKsgl3Hh Rgpll5zfu1btuJv6 IjMwJSIgdmFsaWduPSJ0 d9OfLi33D77eOUbqHSFx USCuJDHwMEKtcEytak1o eJ7eVh3+PGNvbCB3 gXQ2cN5eESEcTfL5LAvu E517MvRzwTLmNygze4ya r5yivFr5AaPzFIWelqQf lMwuBEN6f9XoEt02 L80iCVejBXUsHIOnZQAq AOAbzZnkqa9qrT3hOp8+ HE7hi6fkqi55wD92wST+ AZKyGCP1sFneLOxj IJGvtF4cGCpvDbC7RPRp VwFbzE23yTAuLBdmFq3w oUwiwCmhBC3vBXXgrusl l350CnRgh8zqHEGp gEHlJNrnKCQ1C19ou1L5 BQFaZSQnIZD0qMI4wV9g bGlnbjogbGVmdDsgdmVy bIwiAUyiILzwJ223 IHRvcDsnPlBhdGllbnQg DzNzKIx6J0OwKvd0DMGi iVyrGD7vxHYzUNacFv9k fPvinGsuPP1wSLRl jofrj453SmFwa8cfXBNk sAZaPCcgMJR5O27dj4V3 UNKzATTsNGN9dKA5hR0e bGlnbjogbGVmdDsg tdCatAthLQfmHNehM283 IHRvcDsnPkJpcnRoIERh dEG4BH87XD72bGQat4S2 rZC6S1ZsYHBrwcgg eluhcKI6MGClZKWxvW01 Uf2zpVssDt2xFUHhVOV7 SGMakQGzQ2DjnG4qDsLe DJMnOFJsT8ExgXIg WOxyY709EQoaQjN5HTZw afOsY9CbLUTvtCkjXmS8 o0B3Ts5FJ9H0WC31JY95 qICed0F5nIZ4J9Cn URXvxgdfhrohlXG8GJYw ZZHdkZ76Oq4ulBekTi4e EGYzNTW4ADIicRHaA8Em mP1wOvCzBTSxPZBx D1UodZYmHJtzH597WEpm MgU5AIUaqhAyC3NmQVTj bHnpJuT1k0K7Pz9QECi9 GN54ED67wSBmt8B3 gJY1E8WcQVOxhkivyudv gQY0WRFmEEWohF07Al8t nNsfPg0zKDPjMWJ0FTHh zERoQ4WveY7cIqJk CHHeTDVyT7YvgQUjZTkh G802QKtcVdF6NNGktiTb A9ErGYDnxAwkTdA3p8V2 Hi4VBFAjKZ16OQJ1 lKK8CO25SD19O4XcLxvs dGFibGU+PHRhYmxlIHdp ZHRoPScxMDAlJyBzdHls OO7oAd6yFLDxQXAj sMdehEIzVjHww9ubZYWd HOtkZS9mdKfaS5XtaUB5 GKVeb8o8Yw67Z42iT7Ml dXA+GVVisPS3rEN4 wJ0mKcRjZpJ7VNtsD290 RjMucLAyJlrzd3wyr5ms qDg2KvP4EFTujlXfrWjm RBS3b5SwSb35O94j IHdpZHRoPSIxNSUiIHZh oImiyy6jxA1dLz8+PGNv nEW9pIF7oR2eLyZdWfZ0 LOznP449FfDhtGVq Wqsuk9zlv1fcrKc2WhBd ZFLtvqKscMuzJHP5t6Cv Eb10Z9RohUoyb0KkRfq0 wo59dRHay4D7fXE4 U0EuKUImtauxiZDitHcj YA8aEUItltvoVWAxrY7a SJUcC9a3RmUwXhA1JZhn H5MdefF0DLJgmTLk UWmcEYF9S06xl3A3IKXu THQgZJP4oGZ7rQ8zmVoo bjogbGVmdDsgdmVydGlj LQjfYLdwE127GAVp tThfBYIwdD8sVYByaDDt dMvkDY0uHXDovocjCsTG M6EQO49PPRLCL0EENnGz XDjKYG37N7JiRnf7 QSNsdRqaEN7hyOCnEObl Wk4tfVsyaSgpYM7pQTZi tlmlXPLqaE7lGOThsPNa qFmpNS7eHOUdoitq y101PwHhWPN1PJXuyLVy O1LzrD7dYjZaUTTmXJOd Q7ZktGRtKTpvC087WEcb MmW9EAQjcrZpW0Mo OBOadMrlCnR4h4D5Vx9j YE1zZq3tHMK4TQ77QW71 tZPow1S5iBG9T0JgHVIn xuqbastcgBJ6RKDy PBJdgL98fSWwQCwnZd2r m9W4v094GDVoVMHzuM75 Pl5zxVetXHArsUIRgF3j xcjfv1fdreumIgAd KRBsOAx6MHm4TSCjcLcf ViZhIRU4IvI1CTR3tZBd nJ7uzIoqhxaxmJ9kUok+ IHHoCXHmzkB7M8Jk Gfj3CHNycGgsHA7bmWDi NKktSi7yqIzhxRekQZ6u BSUhxqzxALOzhP7rXSBv lSEftGngFE2vOGPq nsfcy489SuFpAUL4SDDk qNUbL2OnlN4vDcXzXQCn XQCjX3CkmKEpEAtrF401 IGtcWfS5FIZddjSf N5HaHNHhyGulXwZ3h0T7 If6PMKjIOG07JY59mDKp n2T2oCS3U8TaPFGcjbla bgptsKR5TDHaEUGk jD68xIDaBQddHc2io0Y8 f111ENNsTBFudJ66Ah4r eIauXONbrVMYjW5zfyfi s4oxwjxsArFnCWQm HYi0ELr6RAUqnQtnJiBa ATF0HrQ1BRC8xSZewO2l eZzhwmwwwH1uZcv+T1A8 Y1DpLfjabOD+PC90 JNQkRS56wYNmdQUej7jd pYa4AjCcZLGcUZF0fEkj AYgqo7KgUMKiF36nfUBw o0Z2FLPdqPvgaFLr PvVlpHZ9iD4qRActzhzx m7pgpllzZjnjo7tagf81 aK01O41lXGtrTOHiNJNh EBRxBMIusUifgz0g rW0gOy0+BNCqmMV1iNL5 vI1jFrMuAeZ4RRugY646 NzRizCAwJcfik3prd3hx lQn5ZlSqQXZmrpBn vJghWJI9g0PkSh91K62y IHdpZHRoPSIyMCUiIHZh sStvjy7hsA6jOw0+PC9j n4ydkt82cO86rCF+ GZNxQYS3gGskQOvjZEFd fB0wLFmcKcE0RLKoZbSk tM14zHUuPTtfOt8tpNav fFvqNN0dVYKajvga h441UfKfk2noLELcwJAf KAjaTZO8C13ex1P1PLOo GMUkYHR1fCG3kX2wxMku bjogbGVmdDsgdmVy rXpyUSxlRJegZ309GKMq wSciBmGfiGQuN0pgkrDO FX6hSmpwiEC+PHRkIHN0 dWmlYGwrTMKigA4p ZIZkB5v9RyRpNaP8CZlh D5YwhuT5CKBueBNvSIYi vTQNgN0djkbzz5iffqmp LqEkIZUaYEv5FEo8 GHPdnNjjYfXlSXK5BiU2 OEK3eBCieB4ivDxkktfx wE1rHle+RklOOjwvdGQ+ VJAuWBO9hXupTInz CDPajX9xTFLsE4p5HtEn BgL4OTrzO4CeegW1FBHo oEJdSFAdyRSExP0kyvhs h9ppmevyOoMzSBOe ZLc5OKp2LZDcdUujYeUr YLE6TdD9EQA5sBWdfH1z zNplllxuzS3yPhc+TVJO OjwvdGQ+PHRkIHN0 sVarEWnqBKPznR5jIFNk E6h6TqEhSaU0TXrvP9Sr vzT0EKMznZFzRSBuhSCF xT0fkvszt7lsxfej CvIuEBOnCRi1REp1OOYt uPhrKaHqFXR7BaG3ZEJ4 xOOecZ1jfQcayddoiO4q Oyc+RIB9NVH7PD11 GK14Y4OlTcbnmMRlhSL+ PHRhYmxlIHdpZHRoPScx YKAzAbLwaRouPR4kKg2u ZGVyLWNvbGxhcHNl OiB (more content not included)... [facility] Coding Summary HTMLBase 64 ZyxvnmmzMUh2eNd+PGhl YWQ+MC4VKVUzJ65fpQIy mL9LP3tXXM3OLBWUDDWP ML9FAM7pyJR7VWilO7Pi biAv JxihqCBrLS53EAc1VYH9 qIenTGqtkZ4uzXZiC0d7 GxPyOX09pK96TTnaIMAs QiO4WbLzjkhzzIEf P1xePpGjwRXaUgx+PHRh YmxlIHdpZHRoPScxMDAl RjHkuTnkEA6lSo8zHQYa LWNvbGxhcHNlOiBj e4bbBOXsCZieQO7khLme H9XyiLH5ESCiz1m9Dj94 dHI+XTGbCBK7qIroBBmd g256WlJkl7yuJCX1 sKVrDClkEMB5U82so6U3 WWJxTWRuYGB5mDA0sQ8g qLqstxvpC5UpbAFvErY3 OQC9aHAybN9wsPii oztfuX0xHrb+N82TAG7Z ZXCOVR2LShh9I4BgZxht dHI+GV32GHFcGQ49pMBz gCWqx4eyfHm5NdWn EKEwAIM2qDvhNHbwe5Ge TCObB19daEHjz3I3USKh zDlczEDcOxVxiQV0vK8l TMpcybaff8nqovio Hhcwu3qvcp17dB82P64o JOjeNXKqKQZ0NYRhJPWn fZawqb6gaW9eXk6+IDxj a8cxi5gciOq8YiGo NVHdrkHurBxzSWO7j2Vi Bi83X1HhqPcpq8KhGux7 fi41sOSlg3A2bYJ3FHvz VMLawH4mRIowOwG6 RNVeCcOxmY94aLCuGQsd Fl8aeQhsfKpfNG1bRCXv qctmBNWqbJ1kCBUvcQQo tCnmZL4vYQAnobvh l713RiOyJNS7GEFofVFa S3RqxC1zBzKqRADiBUBu V1QbiYGyTYkxE455CFam QiP4TJUdsaUpR2Yo DGGasVxmAnN0n9F5Ae9M r8IswztnZBU6PWjdHRZ7 MiN4EtHoFfI9V4TwUtu1 ACYckSntCR0fK5Qv YJAwsmgyfqabdEC9NIKv KFGlzN39lJTaHYqgWh3s t1M9p130NYEpHZOjtY14 Pf4giGgrNCHkgZUP cC7ydvieh5tatderRkUr CQWsITh0TTb9YNKliEpa KzKnYXL8MwU9XNQ8qIWh bK4uzOvoxvzpqM7w Oyc+M33mkG5gFCW4GSP7 jetgLMBgbcAeRU22GH01 I1HhPkdqqMAuiWN+PGRp jkUnuGgmLB0mQtLb l3vzy2RvXPbpB0ZaHOIc GZraVdi8ESDdDEO9nNO0 kH7jTJTvTNxzk0R9nMX7 N0QnflElyq0no5vw JEIiNVqkL45mtMXhb2H6 XXWijXE3BFLzbWisOgBe kZ68Sik+PGMyaNvjp2Je Zrdxt4acx5ihwKd5 IjMwJSIgdmFsaWduPSJ0 w7VkQh72Y12sTWksZHXy GUXjLAHnKVHxeUjchx4h zG6iHy6+PGNvbCB3 oDP1sA9nIGQmYiG9NDsi Y057IdEceEBgOwbrx1wq n3ckgOr4VnGmKQByyiHm oGeoNTR0u1CxXj88 T35iIFryWKVdONCqMKSq RRIvvPvleg4mhR7bBw6+ XI5jd7iwvq63eB24iSX+ KAHoJHT5xQaqJUme WWMnfE6bCQnqRzQ5NMCf TqNurV01jDPwKHzrZn4o fZszfYefVI2eYHQkbcfr t077NbNaq9bvESJg uIDwANheZLP5E59je0W2 KTUsDRKmIQJ6hQE4vH2t bGlnbjogbGVmdDsgdmVy eJnvOXwjDShjE823 IHRvcDsnPlBhdGllbnQg PzGsRQa5W3YzFaa5EJMc cNxgEX4crWVqNUhrFl5m gKcmlNbxQB1iXJLm fkgjr917ShMrj2jeETPr kMEwQGgjMZY9V89hu4A0 PFWuKTOkJTT0kGD4sO4n bGlnbjogbGVmdDsg icNkeHxvKZtaZEkuM365 IHRvcDsnPkJpcnRoIERh sTY1XT48HM36eTZia1P9 wRS8O2SnYOLitimz fqgfeZW9ISDqSCIuxX03 Dw0axIjwGu3yBCDlKAB7 IKHdpNXuX3OznU6kSsIh SONyKANnP5PylAFx RXjmS403BXjcZbV9DZCg wsDlM6KwOTGcdSufJjN3 x1A0Ak6PT9T5KD08GJ41 gQHum6U5eMY1V6Jw NGWnaxzhwvbsbVD7EFWi ZVCjqZ09Rk3gaFqrXo2j DVWvRJI0QTUcoMNeW3Zl vZ9oUqHnTEXoBEMy H8CicUDhTFpoP935TBps PuV2HBXiepQmC8TgAUVx yMviOhQ2s7F2Rx3WRQn0 ZT58CU85tPEkv4B4 aWX1E6PoGWRbggoesppf iBF3KHTqXBMdnZ34Yz2k xPiuZl2hJKCaWQI6CDYi mGNfZ8DhuA1oUkVk YITgTJJoU5FyaCBhZHti K167UJyyYgL5YCZoniWm T7FhCUTuyYueBvO5m7K7 Po0SMEFtXQ23TTT1 tVP0LV43AI90G5PsMhzv dGFibGU+PHRhYmxlIHdp ZHRoPScxMDAlJyBzdHls GC6cRa2rFNSuWIZf zKnnoBWqLjShd0stOHZw JDltIC1dwQanK4NwfGL6 KJNyr2z4Pl03N22eE8Ri dXA+TUXieKR3rIF0 lW0aJeFeUtK9OLqsE924 UfQaqLHhNcsrt0sdq0pq nCn8HpB2MWBllhEzhWmc KZK6y5HbLg43X89b IHdpZHRoPSIxNSUiIHZh sPmcik9lcS5qXo2+PGNv jVK0lAG2aY8iLgEiPaF2 FKnkH467GmRgvGRs Mnxcx5ozm8bukJk1EgGp REOrqvRzxRhkDSS0a2Uw Ne29R3DklWoah5SqDmu1 uf31dEJzb6A0eRA9 Q0PvWFRvcqpovHGtjSkl MJ5xIMWlnotwODPukL3e DIFmY7c8KzJkGmQ1YTnk U4JygrV2NQKvoZKu PZguEJY7M68ji0R6UGSw OHBoDOU6lQR7rD0rqWwb bjogbGVmdDsgdmVydGlj DHvbKOsaV690JYOz rEjuTANadE8tMBOdvBOq mQwqFM7rSWEvnqgfAmZK M4ZSX71LBIYMB1QLFgIv FHgIAR54R0WmDwt1 NHCwkHbcKJ1vxFPxKQsj Xu2eeQabvDahLV6cKVJl vnejIVLthU1wXIMfpPZf sOpvXH3bLUPnlcca m594CyGgOLV9NXYnyOPy S5DghL9zQoBnUDBiLOIe T1LyuXDoJHaeV117GRfu XjE1PRFfrdKkT7Nr KOLfiTnxIgQ6b5G1Zp7w HM3gMs1eEIB0KK14GK62 eGXaf0B6oDY9K4WpRXOc bptgmqnrsNI1ZDUu VQJkmW53sBSrMKgdNn3o i9E7g962YNXwPQWkuB63 Bb6siDjiLKZgiTEBvS1k kzbbv1brcsirZxAf QXPpFKt4SIz4SQZmuSog VhYwNXF3DyK3RZW7cHBr vT5ubLsypadybA8kVfu+ AQIvFKHxlqU3N8Va Mwy9UDNvcUqpRR0hzVUr WGcmLi4dsRultDqdKZ8e ODAomffjPTOrnM8kOBIc qLFdeMutKB0mOSVq ukthr603IgSrJVW1BGIg qAWyM4FzoV5dQnHvFSEl WYMaX4BqwSYsKBgeY890 NPsjIyM8EKUslkEd U8XxNANgkHqvCxV5c8V7 Ul7FAXxQQA80TW14sYDd p9R5fTL2Z0ZuXNNmqztp izwuoCQ8LGOgOCBb lK03wMLcRYvhWg5of2M3 w746ZDOvCYLguL49Vl1n oKepXWFwoUUGnI9qxmrl n1xmvhpwTrFhSDFe UCt4RYf0QBIqrHogNuEb WHS8ZrL7XWT0kENqlP5d jGwckgzneR1wTpk+RW1l ifwapqG4II79CY37 B9NnWmqffBAanRA+PHRh YmxlIHdpZHRoPScxMDAl EtEftUabWE4bGk1dKGXl LWNvbGxhcHNlOiBj r2unZDIeJQmpKW3znTzh E2PtmXW7MDMox9x0Kt69 Z22qQ2PgjCJ+PGNvbCB3 jYJ3sL9qIlNaFmP9 CArhG891XaVwiBUgDeoj f2ovf4qlcUh1BsUfZMSa sbQytAdmPIK6b3BoZo77 L54pCIjwSSZnQFKy GYBfRNWevGdzaq4yhO9t Ii8+POWfwAH7lGW0cR1q PnDjRwE3YEwfQ280GyCh gCGzLsjlZ51qG7Df dXA+EUIeDxf3TXHwrVsd DN0jcUKcULvrWe9qOOB5 JbCgCrTqXMjxB1PfCWPe etffnvhcoOE1YCMb KQHmqN45Vw1vfWgqYd9k VYYlWWA1AVWntCTrH2Fq cL9iKgFaKAArQLXxF0Cn wVDhKWqhN596TFdl ClQ3YOTufeHfV4YlINAs dSsaTcD5k3F7Qm6SuXqt wXKoVX1nRkKbNQf1K0Ij Xyt5POEamRwoTK1g eFYnEXefGm8vqAyxyCfe HV7lEABnefvfr490YmGi x0cxYVIsrIWgHRxkGNV1 P85wt8D5TEAsIGNw STQ0zCF0zY9vpVjfnzyt bGVmdDsgdmVydGljYWwt LXtyQ028NEVriYvvKxVI Xin4P7TiOks3QTMd zSraTB7csRCcLAsbWc0x dIpvaIoqWM3bPRIwmxwm z874DcHnu4opRNWypJSe ZFlaCDH4G78vv5W3 VKMdHBJtZYL8rEB5vR2y bGlnbjogbGVmdDsgdmVy iEssGRdxETlhF197THKo kUvyIf5JHwa4M3Sk Dix7NRKxzSquNT4wtRFu QYalYd0wpEmtiQuzNR6d JXGxhjifd093OfGfc0hy IDEwcHQgVGltZXM7 H68ck5Q6MSMpDDXyGFM5 mPD5lX0adOjqlpvyhQSk dDsgdmVydGljYWwtYWxp R375CDSkyAhkXcIr eWVyOjwvdGQ+WG95sg36 I1LzOzqgIcd9YHNnMYP0 gSC4bX9oKSJpWCpkw3G9 jAV2D6JxolNkuy0m b2x (more content not included)... Normal [facility] ED Clinical Summaryon 2021 ED Clinical Summary [facility] - Emergency Department [address] [place] [id number] ED Clinical Summary PERSON INFORMATION Name: ROSA EASTMAN Age: 56 Years Sex: MALE : 1965 MRN: Acct#: Visit Reason: Hand pain-swelling; RT HAND SWELLING/NUMBNESS AND TINGLING Arrival: 02/05/2022 14:13:58 Discharge: 02/05/2022 15:08:00 LOS: 000 00:55 Check In: 02/05/2022 14:13:58 Checkout:02/05/2022 15:08:00 Address: [address] [place] [id number] PCP: Britt Penaloza DO PROVIDER INFORMATION Provider [...] With: Address: When: Andrew Mckenzie DO [address] [place] [id number] Within 3 to 5 days Comments: Diagnosis [...] for reevaluation. Prescription is electronically sent to [facility]. Return to the emergency department for worsening symptoms or concerns, acute shortness of breath, chest pain, abdominal pain, nausea or vomiting, or any questions. DIAGNOSIS: 1:Cubital tunnel syndrome on right; 2:Paresthesia of hand Patient Understands: Yes - Patient/family/careg iver verbalizes understanding of instructions given Comment: Normal [facility] ED Note-Nursingon 02-05-2022 ED Note-Nursing Pt presents to the ED with right hand numbness and tingling that started Friday. Pt also states swelling, none seen at this time. Pt states a hx of surgery to his right Arm for a pinched nerve 3 years ago. Normal [facility] ED Patient Summaryon 022 ED Patient Summary [facility] - Emergency Department [address] [place] [address] PATIENT DISCHARGE INSTRUCTIONS Patient Information Name: ROSA EASTMAN Age: 56 Years Date of : 1965 Reason For Visit: Hand pain-swelling; RT HAND SWELLING/NUMBNESS AND TINGLING Arrival Time: 02/05/2022 14:13:58 Primary Care Physician: Britt Penaloza DO Attending Physician: Lennie Wilcox MD Comment: Visit Diagnosis: Diagnoses This Visit Cubital tunnel syndrome on right (G56.21) Hand pain-swelling ([id number]) Paresthesia of hand (R20.2) Prescription Information: If you have been given a prescription for narcotics, seek immediate medical attention if you have any difficulty breathing or any sudden status changes such as confusion and sleepiness. If you or anyone you know is experiencing suicidal thoughts, mental health, alcohol and/or drug addiction problems; contact the [facility] 02/06 Crisis Hotline -Text 5LOYY ha [phone]. If you received any narcotics, sedation, or [...] documents With: Address: When: Andrew Mckenzie DO [address] [place] [address] [place] [address] Within 3 to 5 days Comments: Diagnosis [...] for reevaluation. Prescription is electronically sent to [facility]. Return to the emergency department for worsening symptoms or concerns, acute shortness of breath, chest pain, abdominal pain, nausea or vomiting, or any questions. Medication Information: The exam and treatment you received today in the [facility] Emergency Department were for an urgent problem and are not intended as complete care. It is important for you to follow up with a doctor, nurse practitioner, or physician?s bilingual medical assistant for ongoing care. If your symptoms become [...] so we can reach you if necessary. [facility] Emergency Department has provided you with a complete list of medications post discharge. Please inform your financial services education consultant/provider of your visit and for further instruction on these medications. Any specific questions regarding your chronic medications and dosages should be discussed with your primary care physician(s) and/or pharmacist. New Medications [facility] [facility], [address] [place], [place] [id number], [phone] predniSONE (predniSONE 20 mg oral tablet) 2 tab(s) Oral every day for 5 Days. Refills: 0. Additional medications on your home medication list not specifically addressed. Please contact the ordering physician if you have questions about these medications. acetaminophen-hydroc odone (hydrocodone-acetami nophen 5 mg-325 mg (Crary 5)) 1 tab(s) Oral Every 6 hours as needed as needed for pain. latanoprost ophthalmic (latanoprost 0.005% ophthalmic solution) 1 Drops Ophthalmic once a day (at bedtime). both eyes. Visit Information Allergies: Substance Reaction Symptoms Type Comments Bee Stings Drug penicillins Drug Vi (more content not included)... [facility] Provider Orderson 10-18-2021 Provider Orders [id number] #[email or web address] [facility] Coding Summaryon 10-15-2021 Coding Summary HTMLBase 64 FjpbbdniPHj8uJr+PGhl YWQ+TL1HHAFkK07xhVUb tQ6OK8xARC4UOYNCUECQ JZ5WWH5ojYV9NIhoM0Om biAv LtvaoBVkMM62ARv7IXW5 tLzoACjqyM7gxBKyI9v5 OeHcOQ18mW70GQjvWOMe ZnQ0McHjqtwcqBIo S8dtMjZlnIBlZhl+PHRh YmxlIHdpZHRoPScxMDAl NyDbtItnEF6bPp4tYJRo LWNvbGxhcHNlOiBj t7ykZDMhYPwsNM3xoYfc V2RbdVA4WVKzx2f1Vt85 dHI+BLGxDKL1uCsrSQoy x164JnXoh4fsMUF7 cMDkBXhlFTN9N48bn4E7 CVFeLJNxHVP8yGI1cM9f dQsozrdsY8VwwQNsDjQ6 FGR9uBLgqX8liQhq gopbsS7pSxi+H44KVX7N ZTLWES7ITqc6Z0XwRjfm dHI+MC95SPCgQY58yOGh iUUza3fenQb5LoCz CCJnCAP5hEqsJOcuf5Tz DNMdT00xfADxh4O1YJTc kFmpuYKlTtWfpWN4fE9e GBtfnjlmv5nrvtta Ghile6ibtr07aV39A54y QVnqUECkCNK4VBFiFGCc xTcewm5teZ8gLn9+IDxj l6xqx6zuyTg5WbGk OQIsiiNadJniONE8r5Re Zb19H5ZibMoqn7ZiBae6 vv81eYZul8V5uWZ9PBfi TAQdsK5uJYhhUcI8 LXZtQsUdtI09zTAhEXvf Er1zfAgbcIqwKY4uYVMg nobaMULgiK6uQSThpLKm eCdmMJ7mUKBdhqae u434BkPsUNQ2XLCuiOEo Y2GoaR1hDrCiBJQbSTJz R2FjsREiXQjaE822IXlm DwV9SFTizfNxC3Bw AFQdcQgrRzN6k1W4Gp6T z1FitgysFVR3ACkhOBEf LqW3EcVbZdO8W3GuLkz7 YBYniYytLP5lS0Gb PMUizsncyrinxJG7SERq DGLhdF92dFZaRRdhKz1x g5V9a205HUFzEJDoiO93 Eg9cmZwiETNrkDXJ jF2fhrweb3bssnivImVu RKVuIDv3SHs4BALrtRui YyZrEFP1KfR1QUO1rLGr uQ4jnCiuqyrqkS3z Oyc+E71hvZ7yONO6PPD5 kpxnCDJyryGrVZ15VC78 O4OrLoqlsMYguRN+PGRp lxHawEoxPW5zPtZs t3eyi8IsPGkaP9QhFUUm WNltGws4YFYmHDF6ySX3 yD6xMXMuTKrhl0V2oLS2 C8FiaqMtzk1ul8oo MLYeVTuyL80olKWjz1X1 IXJwiOG9IQItzTytVvVa nQ15Jrz+WXXdePdql5Dz Kjdmx5urm7sbiZh6 IjMwJSIgdmFsaWduPSJ0 y9BsGu77H31eEQizXMTs PMBeABZqFXSriPpzhy2c zK0dEw3+PGNvbCB3 bZU6pH5mZAFgKpO0HCqq P017UuAszBDwQodcc8za p3lzkXb8BiWbPRSsndQz eQatXHA4d1VjPi33 F99qIDleZQEyILCgEYEt XZAwhAfvmc2ahH2mBp9+ BK9jy5kuci37lN76iCE+ FOQaHLL1fVhhSYhg KJFvhT3cEAtiUmR0HFNs BsYyrF45qHJmWDkfSl8s lKtshOlzSE2cYZQavaft e614UsWoy7zxKTOc xZDjRLytWTA6K68ml5Z5 PTInJMZfMXN6hRA3eV8f bGlnbjogbGVmdDsgdmVy tPkhIJejBJxoR898 IHRvcDsnPlBhdGllbnQg AyOpBQs0K0HxBtn0UVGm lRmsAR7giPKhTVjpAi8z qBporXgaMN0wRUJx bufgz035IwJww8qgDXTj cZCvFOgbOBY7Q44of4D7 YXHtSQAjIJY3hCP4tT6h bGlnbjogbGVmdDsg ylMmnVbyRLcqDQknQ763 IHRvcDsnPkJpcnRoIERh eOQ4PD51MY54fONfr0H4 uQU3Z0NiCSEiktth kqmabYU2UWAuSFNokP95 Pr8tdYbzWt9dDSDoIQY8 IBBuwBEaO0KgjS0nFaPh GOWyBJLjE9PefKBy OJjlE703XXepVyX6YRUo yiMkT8TtVLRypSmzPjY8 e9B6Wo8EZ9O7AD97DF08 aKKqe7H2zLK7I5Zr IBCazknjjgfyyXX8TJTl VQGtzX70Nj5byKidHo0u NATfRON7NMOypIEgE4Sp bA3aBsVtUKUhXVHr J6PbkPKkPFciA108MJsw UnJ4WPXdkuAgY9OhWACe tPmtIiK5y1A2Mf2MIEx6 HZ58TH45sGOgj4R7 yAB1R8EhYRIxryktsjre wFB6FVZaNROxwO30Lr4t jBqlUv6dUFKeDWF0OXXh mUAuQ7JasB4gPxJp NQDpBKAqM7AviHOyTVce N892DIntIbE1UCBmlxAf L7NlYDTuoFhmFjS6q6W4 Jb9GZNTdXK45SAS0 lPL3AY13DR51S3JmZylu dGFibGU+PHRhYmxlIHdp ZHRoPScxMDAlJyBzdHls LB2aRy9cCUMrORVf sIvhuEElJfZle3kmTPNv QRvwJU3zxWxiG0TstEH2 QHEjw5t9Xc54Q68fP3Lk dXA+VDYruIX4wEF9 fS7mJvYaFoO8IMjjV392 PiGtsNHpMsfgg6ifi7pk wHj9IrS1VWKrnvQyyNsu WCY0x3XfJv21C24x IHdpZHRoPSIxNSUiIHZh nUooax6awV0wBr8+PGNv lVW6lEL6iA5jMlMrZvQ3 DOlcH344IrQwgMBb Bfumy6lnq7fqrWl6ZjDq IDAlpzDdbXepENB4v7He Fi74L3DulQjrw0ZyHdw9 vw26fCYhw2V0uRX5 H4HrBYXyzysizTDwqAnl BA4rSFDnoenlVKIuvN5q NDZeF3b8FhZoEvN8WCvq G5NyqnG7XGHgqPKn QVxbMWB0Y99en0W7OEVw MGYhBQG5jMW5oS9fzLia bjogbGVmdDsgdmVydGlj NTpuRJxeW155ENEh qAtoMGWduP1wLDOtzKNm lLekHW5xAJVzbvnxCvKI K9RFM69WYBEMX2CFMsTv SJiPDG08W4PrUjo3 HXMqbNxyLX2ukTLhICty Is4dbCvlrPafKG1wRNVx qkufNMEiqX8oXYAmpEVd hOxtNH7wDYChycuq k751QyLiIIN7RHJopHQd Q3XdmZ7jLdFjNQBxOIWv T9IbiZMxAAwjY282KTed AfU3GOSaacEbS6Of ICYlaOkpCaA1c4D8Bw0a ZI5bHa4hEWL0JY05SR62 mXNnz6F5iGB3U1FmZXMr ipdcblhfsEP3WNQf ZGSosV51bHJbXPksJr0o q8E3v047FZMbRBVsqI77 Hb8esNunACXdjJGHiC6l uvgsa4ecyixaLrQm GMZxSTz0ANj8HQGbmChm MhPwCOW2TtB0EYM5sMRe nA6kyBehxgnslF9uYbq+ HQTlWCHqaaZ9N3Kq Yzh0RTOptCajBY4abFAs BQtgMk6azAspcXalHP6u HSUvlkjgFNDuuP6eSWSt fJYjhRshQF8uKLHk eirel082AmYcZZM7WNNa gVTfO6NfvN1cGxSaJUGf UBNzP6SacSJaJKbkB582 BQkfVyO3THHynpYa J7QgMJZvfCieXyE2e8U4 Pu4UFTrPRV55XM65pXAd s0W2vUQ9L6VvFJFmhmxv beqnmJA9KIUvSXSw aB43nOVcOXclGf3at5B7 c046XIXtGRHkzQ49Nx0c qOoaKLMzbPWNxR8agazv i7ydbuqtKtDnQJPj LBl7LVj0IWQzkBrdGgKq NPS6KoP6ZUQ2cGMyxY9z aUupnrzloF7nAyl+T1A8 Y0HgFnlpwME+PC90 IPCjIL83jOVmmXNhf0js lZj9ImToRPNaZFB6nWxb XPvoz1WsABBtK58joINd v1M3ZHGqgVooeVYy SlGbcNZ2fH8xWBqgejym k2ypoyfzBjgea1zjxu63 pK84J25nCKyxXTEeZNLy ZXPdANWhqQjwjd0j eB8tPa8+TRAhuOM1qCI1 gB6wPtQwYiP8RVjsQ775 NxQozHMhDnhvl1qop5ro mLv2NrOlWSJfzbKc bJykKOQ0h5NwBb32C49d IHdpZHRoPSIyMCUiIHZh rXbcbc2zrC0pHb3+PC9j g8vuyy14lQ92nPJ+ HQXsOBY4nImkNNbdJUCj xP9jODnnYdT4ZMCnDcCf gL07zARhSBnsHs2asBqa oFzvAT7vUBXftnjn x954XpTeu7hqHYUgaPTy NMtaRSS6Y13gb6F6OKDm FWUrWCS0hRE2rB1jnCkp bjogbGVmdDsgdmVy dNjgUPyiQLcjX812FKMs fQvlGjVzhLTyJ8cmquQF FX4oLhfghSS+PHRkIHN0 sBjxFCrtLYBvmK3v OBGpW2j9FsSmLqW5XLuo J7IwplK7VEYjoNClNJMa oPXAjR7kgrwlp5oxwpmr CcVfSVKeJIc4WPa0 YJCltWhqBqYaJWN1GdJ0 CPS2mMUrmG8fhDlabpic qK6bEjy+RklOOjwvdGQ+ CAYuNCU0dGhaGNfh WRHhkS6lUTLuE5r1MpSa BzB9HIrmW2FmaxH8WRZw qTXpEGQfcRUVdN9ladhd s8elfpuzRmXnIGHc BFf5PXq8OIDohBckEeTz EEG6PwF9YYF3aCLxgJ8w aNyjegavtM1fZee+TVJO OjwvdGQ+PHRkIHN0 iYudOEzcEJZbwU5cCLOy W1x9EbUiIbC0NRoiA4Fi npA8HLXrxZAyHBPeiEIE nG0utywqa2dacmam HjCzUYQzUFs6IJq6EBMj lVuuXzSnVMS8UdW5PKD7 uOBuuK9bfHoqazfazM7i Oyc+VUF0NKI2QC63 EC83C5HaUysynVVslCS+ PHRhYmxlIHdpZHRoPScx OBHhWcSzbTkgCS7tOk9r ZGVyLWNvbGxhcHNl OiB (more content not included)... [facility] Rad - MRI Reporton Rad - MRI Report [id number] #[id number] [facility] MRA Neck w/o Contraston MRA Neck w/o [...] Torre MD 10/12/21 7:46 am Technologist: JERRI [facility] Coding Summaryon 08-30-2021 Coding Summary HTMLBase 64 VhlpevapMLd8kCi+PGhl YWQ+UA4XYVTuA89syXOh iQ4IP3iNSP6OHCKAJKLL PO3XWI8goAQ9VGoaI9Bx biAv PuqgoIYnVT43BWf2TQH3 sOjjWUtniQ6fiPXrO2b8 YcJkYB34mE05OOcaIDDe IvV5SsUziwtbtGZc B2pfFxNnpNBsIem+PHRh YmxlIHdpZHRoPScxMDAl UfWkiUspZU6hFl8sMEGa LWNvbGxhcHNlOiBj q4coVHRcBYwsTB0snGpl B2HhaBD1CVJgu3l0Ek40 dHI+LIMcABI0jMlrTUlx y497HfPgd7cuMAW3 oHMlLDijARR5Q95fo3K1 WORiGMYmOBG4oPN5hM1x dEwykrkpD8UglRVsWnM2 RRH6oVOfsZ5zySuq becqtN4jGid+K77MBL3L ENJJUU1OTwy7X2CoSyfs dHI+SU59NKCrEB44cQYi aBMsp9awvDj3ThOd JKObWVU3oGabWLore9Hd ODGiM97fvHAwr1A8WPBy bLyijOLjEbWurYE6xU3x KRxlmmcbj7afzmzi Qdsle7gvbv01yC03A05b GErgXBXcIGN0TKGoZYKo yJftrd6wfM1qMu1+IDxj e6kcy2bhzGm9HaQf WZApnzHpaIsjXAV7b1Tt Jt73X2YbeCdty5DmMyt8 gh29hJDdi9S9eDO8IYyp HVXwvN4hACnlQdA8 GLFdXaUnbW22vYPgOPey Yi1dyQpmwXxsQI2sAWJz gprjYWMokE1tOMFemFEc wQgiEW5qGHQwwnzw w020LrGgXJI0EAXpsSFo D6AboV2hBkVcUZKtAXOt L3JqmEKgNTueL653UCho UbM5QXDoazMsR8Wa GZLxrLtuBlA4v0N6Iy8Z p6KkerrlURE1YAjeTIJu CvNtWiOqZnY8B4YvYhp1 LWAliGvsZP1lO1Sn JTAbmjsulzskaNU5GTKz TOIzuG00qAGlDLpiVf8v b3Q1m181DNTcTFQtsL44 Oe0yhMrlKXSsiJOG kY0kpknwr2khjkogMkWs GEPkWJj0VTi9IVKkhQnh XzOuCFU7SkU1OZK5eURu oK0fqCdqpzrrmB6u Oyc+U83gkV8wBRV8ZNT6 bnouIOKdlrTrQJ87LX86 C1OlFyxmyXChuLH+PGRp kyYceLxsTW3rKyTp m8ldz7CeJRhdD7KoHLBw TIhoOfl3YNCgWOD4mIH1 wY6sJAIpZDnbs5D4wBG7 I0FzfcDleb2nk4nd MSVfXPgkZ15dqLKjx9Y4 YWQcpHD6CFApnQgmNbFh xT23Nie+GGZatBits3Ng Fatnx3cad1gekUt3 IjMwJSIgdmFsaWduPSJ0 s8BkWe73X04zOHumCCJq STYoISDoCEFibMsizl0k xX9sFh9+PGNvbCB3 yPU8dS5fWWCgSmW5EAtb C951AzXjtHPhZegzk9ov v3aylKi5XmVwVEUpgqDz fDyuABG6x3IiFb62 O38kSRdfBVGwQRCxCHQk SURxwNbefi1vlF4zZa3+ EO3wg1pyvb94gR19gNM+ WEHlMEP8xOhuEJwg ZYBjxF5rAUifInS1VJEm TaErtD63bLHxGLceDk6s gKxhiWemDZ8cNEFjcqxv e886NbVss5yqNBVv vJGcFWmmONM6J38dj1R2 VNBvMZSaULM5kHO8bX0v bGlnbjogbGVmdDsgdmVy eZsiDHuwMSajI101 IHRvcDsnPlBhdGllbnQg PaBhTXc5I5VpMxu6XWIs gXyzLJ6fgGJrJKxkQs4y gIpjtVazWB4rAWZi vwvhq701BpTny1nqGFYf wXVuZZsjTCH1W32kv9J4 YPIuMUYtUOX6iXR3fZ5m bGlnbjogbGVmdDsg xkMbiLcoDGlbUAxlH125 IHRvcDsnPkJpcnRoIERh iIE0WU82XI70dOOmr6C9 wYY5U2HtXBIzqwjg pywkzXM9NDTqVEWpaB13 Kb5bfVaxQo5vATKbAXY1 QUInaICgQ4InwK1xBtCy XDDkWQUqB5XtsVOh GKgtS492SOagDsN6KAAu bbAjB2JmLVKpbWsvByI7 f8X9Tb0GB0Q7WG92TQ22 pGVua4Y4tUZ3Z0Ep LMIwjqamewgotXR4ZPCl ICIyvX55Wm0vwIjaIe6i LXYxWSH6NNMqnHZhO1Vk vO2kCeEuSTMdQMHq A3UgeHFtGCuaE324MUns FtU6FPRoiuRqX5WcPSVk kXgvSfQ1k3O4Ht0IXUr7 BQ07NT35hCZst8W8 uJP6K1SaUYYhrtdwfiai tET9ZKSgNAPhkT89Or9i mTfrSz2vNYDtSGM7EYPv qVHuM7SnoS7fVyIr RBCrPXLhI8JcbMNjFYar Y457ALmkIfJ9TOAgjpYz C5VxSBLdbTazWxM1d7D8 Nj0TAUIdJW39EHF9 hYS4SY69AS81F9GhQjqt dGFibGU+PHRhYmxlIHdp ZHRoPScxMDAlJyBzdHls JZ4pRl2cZELyMVKs bCjipILxUgLzc2huGZJh ZNbpJO6vbUicB4YstCT0 ELMvt4n6Rt69O65tK1Uv dXA+GIMrnFG2fVQ2 kY3eAySxVoY7UQllR634 OdFubPZbAgrbt9knn8rs pIv8IiC0MHHlvcQllCyd PTZ8p3WjZd42R21f IHdpZHRoPSIxNSUiIHZh lZlgul8mvV0xWx5+PGNv jCM3hOO5lJ7aKkJeJlG4 FLhkV107NnWxaSPh Uttbz5lkb0kgeRm4ChQx CFBgsxTduYynKDF9i0Se Ay62F1EizQcig8WyGzy2 mn89zLPpl1E5sKF8 F8PoNYNhhnmfvFSrjTgf SL4iJTJawfbfAWMezJ0t DDUxV7i9XmIwTbK7MQnr W5EyoaN4QZZaaEDt XTagBDX0A24uw8B6IHVq CYVySHL1qHA7gD3akGhy bjogbGVmdDsgdmVydGlj ZRcgMTckB377AHLa rHcyOHEauP1kWGQbeCDj mExqDR7wZAZawvqiXtAW V0JGY45UYTQUW5MSZzFc OEoVKT59M3DuQgl7 ZXUbjUvhCU5brIEoOGcg Ux2isBrcsDtpTR8tKYWu mpsiOOWixW0pZKLsyNKx iXfrSX6jOEWbucym h354RbHgOGT7BNKlhWJa G4UseB2bYvOrNCQmQOEg H0PgnYFwAEbgZ356XNxa OwV2RZQqdqKyD2Oi WUOvlObrLvY6y5I6Kr3b BD7wWv5hJKW1MI99JC77 tKFhs6C2uFY7U2CrIHNp brhyyobpaVF9YRTv SRWycV12mXGiVIgpDw5p i9O2n354HNZyTVZehW17 Xu1owNrmNPVdpAAEwW9j iglix0lenceeQrPe DNQhKEz4UZz0ATHhcSer CkTpYNP7CuG8MDC5pXAv tI9eeNihxhdpyX6iPik+ WJJvUTLtqzN4W7Sp Bgx5UWJpbOjnPR3kdKYj WCixGr6uqVufeYacNB4p WQSsnaajSEYygN9fHOTu bPZnoPkcEC2oTIGu okxgn068FiNxOYU8WCXl iOLvK1DquP2mDqEkTIBj KHInM0BzfQFnSFsnO986 HAfgCfS6IJCusbOt V8XxYVHseUtiBnF7q6X4 Vr5ARTiHBJ72UW35hVLm y3Q6tMA1D8QmXTKgoccd ljgpsHG1CDWxBMVg yP22lQEoHKprIa3hj3J5 z720FMWzOONczM80Pt4d nFkuTWNzaSRVvT4okyvh a9iiitirOsUvSSSu CGo3EWt0LBKyyMszCjWd MDC8JqV4FIV0zKPkrA5m wXawxekhkE8qWsf+T1A8 K0FnIlfieLK+PC90 AYQwTK93iFFhqBWin8yv lUk4IrWcOPLbPLA7jDnm CYdgk0BgUHTyS97ptUEn k5B8UJLrxXyalYXd KjSdkUI4lU1dMIgtagee v6ljvynjDyzlg3jwve14 tX11A40lSBtsMMDvFEOy BXZtGSBkcUpswt2s bO4fIy8+EFNxoVE8yLA3 yV7fKnGkIuL2XXofI799 PgIilCKdAucoo4zwe4gs dVw1AdIbCMJfncIz vMuxKNV7r8EkNt91E17c IHdpZHRoPSIyMCUiIHZh ySsfmw6npG2zOv9+PC9j t9roaf80uY31vFS+ WTOgPQT6yBarTUbaUOUh yY6sXRoeBnA2XAWwElDc kK98sJByLZobZb9cyRgd mMaxEV8bSYYadbpm j694BjIvw2ghJBGqwGWy YPdoTGN2D67ho7K9XJDg URKkLNT3hWS9bV7icFtv bjogbGVmdDsgdmVy vAxzHAmeAAygV352TIYu aAxfRlLpsGNlX8qpqaXV CZ2iUtpbaVX+PHRkIHN0 jFhuHIjvWZSfpX0v CLQxS4e5RhZcOiT8PRhe T3CmffH4AIYciZArASJf uZLRzE8nkpnla8lkyiql PlBoSFSdSBk7XUx2 IUGvuIdzCsUxDVW8YtH1 COK3pUEveH4wlNuwzpdh iF3cMyl+RklOOjwvdGQ+ JEUcUVC2wExhFJpy KIOkwQ3zSBAdT5r0HpXz DsJ3SMqfL5OmplP5AJFq eUUcFJFouMAYzL1wleuo t6uivwneMxYbAQDe XBu1NZz1CZInmRmfEkWj AOC7BkI1WKQ1pYQnxA8c hCeyukfubW5kKdc+TVJO OjwvdGQ+PHRkIHN0 rLskRQyoLIFtnL6yLEFq L4o2PcYzHqK8HUmuQ6Rs yjL3HSXstFUiMPVrpAUM nY0mhtrdy1ifrsxf AcYfVXSdJYc3IRf7TCHw gFhhXjMpYQF1HbF5JSF8 jTQvmG9ltHcliqrrpB7d Oyc+EGI8QYC4CH87 JO78S6GkUvvbqTZtxDT+ PHRhYmxlIHdpZHRoPScx SCLiSbTjsYcqIF4wKt2n ZGVyLWNvbGxhcHNl OiB (more content not included)... [facility] Coding Summaryon 08-29-2021 Coding Summary HTMLBase 64 TfsmqpuxMNo7jNk+PGhl YWQ+FJ7VEAXfI64chUEt aA2YS1gMHQ1PQVTVQPYF HK7KUM6wwKQ4QXlmS0Gk biAv YhkmuGXeBL64CDg9YRN4 mMyaBCxdkI8fzLItB9v3 HpEeFB74lE10VCuqZZNr JiP5ShXadbrghLZl X9bkLpNrqBQhNle+PHRh YmxlIHdpZHRoPScxMDAl PtLzwEyhQF7eGu8tIZNt LWNvbGxhcHNlOiBj g6agSELkHUxpBP4qtWov X9YbwSL9IKMcx4y6Du86 dHI+MFMgOOK0sFytALcs r906DuBej9iaKUM4 hNWjJBejJEG0P91qv6I0 QWGeSUPcZRD3jVC5wW5x sSvizsvpT5BffYXzCtF1 UDV5uTYdnL2boWxn jsqaeS9jHce+S80LIU4Q IXYASB3CSss1L9SmYfrw dHI+GB43LTCkQC18oIEp eADah8ocxKa7OdPv BZUvWAX3xSvjCWvxz1Bm ZXYxB38cfNRfj7L8YKWe aTxquSUzSgMcgRZ1iQ3k LItmhepyv1pgyqym Cvzar5vdrv57pU78Q75u QXolUYNuJZF8MKToGPYc vOgiqc2dsW4vGw5+IDxj b9uep1udhGl4CdTn TESgceTlfPqfFDX2a9Kl Jg40I0QzcKktr9QyDyb6 ib22xEGdi6N4nEX5ACfi RBXtlM0yLWvpZqS3 MDTdSpJfnE76oCElMMqb Db0okIlpkHgvKP8wUDRn mfxnRYZkfZ1uHFCmcVOk oLjkQC9wQCWmiitw e785GmHvAGG2BURcfGBj R5NdfM1dKhGiHBBbDDOb Y2CshUCkRSvyO612OOnn UgS7AVMqadJyP5Oi KRNhlFhmWzT0u9J7Hw7I p3XmfsbcYBP1KTrpAMAi JwGcTjAtRzS6I3AoSsu5 CFEysCzbDT0hF2Xj DGOeuhvhmqnlcOH2OSHi ERWvpZ15mNDkAWbmEy1f l0W5f502RPEcSHViwV03 Sx1fuDjiLHXwsBXL nQ5izmidj5vombhrJgHn XBGwFEt2MQo6GGAhbPpz RjJmEAO7RpF6GEY2lJPs kG2hmAxseracjZ5y Oyc+E39lgQ1nBOC3OOI9 xbbkXXTzwzYfGR67MW85 X8EnMavtjHDgsQP+PGRp qzBemXxqVO0tGuZh j3lbt8KkKZarK5KwVFAl PHwlVfp5SGTyFWK6qCN5 iN1vGGVvGIymo9P0uGS3 K7UjeiEovg1px7aj KJKyBJalU73rlCJux0V5 EKZhvET8MYCqsEflXmFh gZ06Ded+IKBnmMwri0Xx Bvxgm6quf1sxqIp8 IjMwJSIgdmFsaWduPSJ0 d9BoBx41K97kBUelXXHg CTEiYLTnGDPeuTqbbb4o nV5nIq5+PGNvbCB3 rRS7wV1pDIPfGpI3YJvf J333LcJjiIQcKknyw9ro n3idoIo6GwQmHGGtjxAc fHejCJH9y1FmDt09 E76dRGlfHADlXZGgNSYm JMQvaCcsnw1mhY1mPt5+ XG1ft2rrfh55hI57gKX+ CQDeSTV6wPudPVlz HFNjyL6dSCbiGoA3GTDw LyAimR54sPPqBPgzRl0v tPufmBsuKJ8qKQXdgrsr w304KuQhc8qyMYBy dESqEZemNNT7D21zm8M7 ITNgUKQxQNL7cJA3yV4v bGlnbjogbGVmdDsgdmVy aJlgYFbhVPteH139 IHRvcDsnPlBhdGllbnQg CeAwZGz6Y4LrJmt7SPNt bAegLP5ioMKfOPghCx0s pXosmWjcLZ3sOLXr uljlw342SiEgt9oyCSNh tOKjHJkxNFR0D93jx1L8 CNTpODIdLGJ9bKR4yV1e bGlnbjogbGVmdDsg ajVvfZmmRTbuNObxH917 IHRvcDsnPkJpcnRoIERh oNW3QH60OK29jLPbs0Q7 cWU2W0XkFMBrglzs jfvrhJX3NTHyGPSgyY52 Tz5cbGdpPy7rMQCbKPY5 AQZbmUHgO2UxvD3gHyOr XVZmDGJcI0CedMFu NAnsT610ZDeoUrU8DTLw tlIiG0OyNRNakBesYrX3 k6E2Nh8LO9T8OW61QA00 kLHfw8V6tVR5A2Tf NAMtxofhrpdzkQS6NTAt FIZyuK64As2lwSgaCx8b YFEnVOA1TTJchJDtW6Vp gZ6rYdUkDHUeRJTg H9QyvMTtQIodG729IPki YkT0AVFaqtSuG1IaTLKk wZwuEeR8p8E0Wm4ZIZp6 SQ89SB70tIYqx6Z7 yEK1T2FkMBNjpzqapbqy gWS0CBSbFZKocU68Ke6b sKoaUr8eVDRvJUK4ATRk aSUtI4PvmK6qCbYz EJXcEJLfR1PshJKxKThv D352QBuoBrH8LYMtasUk Q9MkZBFoxOypUoI1s9Y4 Za4XHCYcHO99LLS5 eQJ8GC07PP04W6GbYshg dGFibGU+PHRhYmxlIHdp ZHRoPScxMDAlJyBzdHls OW9mUz8hHNWuGABv iOckgRUhNwGme8plZNAu QDkbHA4rrPieS0WhpRA2 RGQes8b4Jx57E33cX9Kh dXA+WXDwnXS8rDK6 wA4dMlIpBmB9EBgdS400 AaWhfZCgIngkf6zqu3lg bCv5QnY2XMTvdaZwkPrm AYC7e3UwBc88B60z IHdpZHRoPSIxNSUiIHZh xGsyrc0zpP1oBb9+PGNv sXY9dUN8pW9vMuZwZrU1 ATciF212FgLfdWWv Ojidz0gtf8zfsBa4ZzZl XNXkahSljUblQRN2i0Po Rv99V0FawEqzk0IvMfb0 fd68tHElc2F8fGB2 L2NnCLAycarvmMVorIqr SS5lPRKvyohxTQWwvK7w MGBjT6a1AlBgUmS9QIhe Q9PvulX6GVRsdAQs HFxsRCA5N53lv2W9KCTp KWLzFBF9tDW5qW9aeIug bjogbGVmdDsgdmVydGlj MDkwVZrsT309UZMp rZrkPUSwcF8oJJZizQNj fAzwES9rZHSyqiigEuEB Y1DIM28ZOBOPU0ZYGrXu OVqVCC57F9UkVqr7 EGUzjTpbSJ5mvKHcCNcu Jt4nfPjqaZewEE7rOAWk gmrcCDZseE4tOQPipHLo vGxuLL4zSDCzpglf r687SlDlDAL9BZRhmJTt I6ZhiE9nLzJyLZRuUTXh Q3OdoPGeZMwlM715DHva YlO5CPDgbkCeB5Gm TZYnfDhqYrN2h5Q9Nk3g FD6cIo2zVVW4AC53JC63 mRFbs7W8hSG1A4HdWFSx gvxcqftcrNF2BFVt DKYpcQ32hESgJInpDh9z h7F7n078LVMgNTVnaK39 Ko9byUrtKNCtuDFBdZ0q eijzg1eafjjqSoAi QMIfFAh5GYq5GJSiyGar SpKfEWB8XhA3ESO5lMMh qT0gdPjtvimcgR4qIoj+ THZdILLkkpE6Y0Ki Yqk8GHPjzNuxYM1ehXDx LGouRf4lhWyzyUwtXS5k VNDgmznrJHVtnD0iLKKo xGZtnZmdSV6vDOVe aeeco770QbMtQRZ6SOLk cCLnW5NsyQ4nIlVcCLIl VJDxF9VwhQCxFWyhG959 MFwdRwO5FTQilwMb M8HnRGCeoHfwPdW7r2Q5 Bb8IRExFYR98GC82bMEi s1Z9kXN4H7DcJOSvximv nlimnUZ1BLVyWWIw wQ87mQLbTZrcXe3oa9J0 v614ENTcPFVbmI54Lj6a mMxaVCIpqNWTjA5kfesi v8fiwpabFrJxJYNh DOz3NDa8FNHziIhxTwFe JGX2RwG1VQA3dQEqwP3b gVohjnykgS4aFbj+T1A8 N9LrHihliEJ+PC90 HFGiAP48fLUpeVHsh5oh eJx0ZcOhLXUhOST0lBwr HJbnr3HdEDFhU40laVRc x3D0AYYrpAkwbFTi DhNliWQ9oP5gSOjhjlig d1feqjkfSgnpt3fmqp70 qH17B36vQHodPNUaHDTa DLUhYALbbXkmmt2x bU1jJd8+AYJwrLF7tNV5 oA4jJlVgFeO9ACweM588 NaTwmNIrUamud4qbi6hc hGo3DySuEGDrftCx lWfkOQX3h5FrVw58Y97d IHdpZHRoPSIyMCUiIHZh mWzohp7mkZ0rUd4+PC9j m5qtck36uG09gOG+ RUJdBOC8xYklYVfuFDFr zT1jFPcmVxZ0SZSaGsEq mA73pWArNBwgOo4lmWci oPkgJZ9sALJmkcrw o327ScVef8scQWAwtHAt PUulCDF7U87ir8N1COLr KAEpOJA5hCK0eD8yhYna bjogbGVmdDsgdmVy sXnvBQjsTDvpP175DCSe zJvdLrGfhFAaJ5gzxwUA HF5nXuuixZI+PHRkIHN0 rMqaRHwoYSDznY6r CHZpR2y8JfZiChX6YZpk J5YxiqG9BALsrZNhUPKr aCXNhX0iblock7wujcfs KmNuNVMfLMo1MGc5 QEZwvJvhWcApQUJ1VbF7 UMV1nFBhnN9uvJtgqjnx tY5nArm+RklOOjwvdGQ+ GMCrEPN0vEhxJUtu NQZkwN4lUNTkL2i8WyDy YsP2OKmxC2RbovZ1DWLq hMPeCTWfyOXQiS4ywoto j3djvoqnUqJlKMKc KWh6EYz0NBOfpCnfOlXf LWU4PdY7XWQ4yLXhrF5e sHsdslbgpV0eYqr+TVJO OjwvdGQ+PHRkIHN0 tKkvTUcbLMFnuI7oNIGc D2e1IdVvRjZ3NJqyJ5Iz vbX9NBPhrIMjQSEnqWHX xA7uwcksx8qfuwwv VaBwGJIbJXn3ELt7SFWr rQwpHwIkRAI6HvL4VCP5 zZMloM3acGvnnkdrxB0l Oyc+FHA9DYL4BM28 YT15I7UpJwzieQRnfTX+ PHRhYmxlIHdpZHRoPScx EZZrGiTvaJzyXV0oBv7b ZGVyLWNvbGxhcHNl OiB (more content not included)... [facility] Provider [place] 08-29-2021 Provider Orders [id number] #1.00OTGTIFF [facility] Rad - MRI Reporton Rad - MRI Report [id number] #1.00OTGTIFF [facility] MRA Head w/o Contraston 08-10 MRA Head w/o Contrast MRA HEAD WITHOUT CONTRAST; 08/27/2021 2:19 PM EDT Clinical History:LOSS OF BALANCE Comparison: None available . Sequences: Axially acquired 3-D gradient echo series for the purposes of abea-vg-rkohzb MRA. From this data set multiple volumetric [...] Deshpande MD 08/28/21 7:28 am Technologist: JERRI [facility] MRI Brain w/o Contraston MRI Brain w/o [...] MD 08/27/21 2:50 pm Technologist: JERRI [facility] MRI Spine Cervical w/o Contr indu [...] Deshpande MD 08/28/21 7:38 am Technologist: JERRI [facility] Physical Therapy Noteon 07-12 Physical Therapy Note [id number] #1.00OTGTIFF [facility] Provider [place] 07-31-2021 Provider Orders [id number] #1.00OTGTIFF [facility] Provider [place] 06-29-2021 Provider Orders [id number] [facility] C[facility] Summary HTMLBase 64 YlpmgvbvAVg7jDd+PGhl YWQ+QH5TKAUjO51dzXZd oK4EG8wGSS0QUFWJZQWL LY7NXJ3lvPV9DPqoQ8Ug biAv GxopzRPwTO73DFc9XUN4 qBnjSYvheS5dzYQyB8i2 QdQqAC07aZ86BFgoVYOz IyR4RoYwbtgasOQl A3gcVoXkuFGiCul+PHRh YmxlIHdpZHRoPScxMDAl JvWztCnvBV3uJr3oJBVd LWNvbGxhcHNlOiBj l0jnEVTcNOyhPN1lkQuh M9GquTN2NSUkf3k1Fp97 dHI+RURqOYV4qMefQEhd e381RoKya6wyQWV0 wCCeGYhcEXY2I59mv1H6 AALlUFIfCXP7pKQ3fC2k jAzlyqqdS0ZyoQOzDjA0 TNU7iRBmhT6ezAtq aigpeC9kZga+V35OOG8J TCUFXV7CWol8P6AmUeiv dHI+YK48TJXvVE27oHEt lAMea2sfmUz4QwYd TZGeGBL0lNxqRJpyg7Vt WWDvU15vkZTes7O6OKVb eSuxoOWoObLkwZT1xB7d XLmdmhrbi4vrdhxv Sajxu2siip41yQ92N02c SSjvGMMqSLH7FHDrPXTx vFdwtq1nfZ6gXq7+IDxj b4ehc6fmxIf4UlOa VJJfnoXfxHziPRJ7q4Ux Do44X8VefBmak8SfFuj2 dh62kLRqq0M8jEL0QLnp KPNdmE6dMExnKvM3 TYZdVrLplA93dNBdKYbo Ky6goNybsOhpKH9sJYAa hfasIDGkxD9xIUHcwLSe aYzvJR6uVWQektqn w613YoLrCJQ1LUStmQOy N6ZdsZ4jUzMgTOHjZJZa L0IyrDGmYLeeH443DPew UsT8LYIhtkMfU1Ud NMJyeJtzQmV2p8T8Mo5T u6KvtehfRKJ8XTysKGW8 MgU7VzIhXyM0M2UcRhv3 RCCmyNjwEL2qY4Kb SJLipacpxckrmKY9EXGi JZRsfJ95hIShRQbqNj3y x8F5j494OUAaWXYbeY82 Yx0cbRxnAWRqeFSX vC2xjgekd2vkikrfGnBk YFHyHSr7BJo4DMXjpYaa CfLoLGX5PmX1XVB7nISq fL7ceNwpbiyyhA6x Oyc+W39hjU7qNEP8ERX4 ojuaRBMakbKfLF10BJ71 G2CsRuczgBXugMC+PGRp mcSauIbxAR3nStRg i2dys7AbQNolT2DjQQSc MImzWun7LWRaACA2lWU3 iX5aRNVbQImko2C4hPK2 R4LnjcOowp2wh9qq OUTcKDbuE29lrHJjm3D2 OPHmdCU1NVZovMjnYjHr oV99Fyf+RHUeqXqip3Nu Oyhpb6zsr8iveQi6 IjMwJSIgdmFsaWduPSJ0 y4YuUj09A60rFVjfNTZu FLDmZJHbSEIvxDqnce9r gO6mTe9+PGNvbCB3 vUL2lB0vIMMqNuC5LVzc Q152ZzBjeFPjJvnib3qu k7mbaXc5EdMzXNRfusYm iHazYIN5f4TbQb23 H15qNEybRHNlQAXxTJLg EKIxtCiqsd7npO8jKx6+ UP1vz1vnkn62hN11qRC+ LYGjVLI5dCnfRKna TAEgjU1qCNrzVcW9QKQn BjFneD57lDJgLNrzDx7b mDthwVdpMO7wIICzqrtw y183TgGnv5paBFYp rBCfVLhdINE7D96hw8I4 VRLdCUGpDNJ3yYO6hW2i bGlnbjogbGVmdDsgdmVy xHkjYLkgZLbfK558 IHRvcDsnPlBhdGllbnQg VoUiERt6E2UoFcd6LEOj qUscTW4qqPLhMGhnUo2n sYnylLkrRC4eEEOp dauyw887XhArx4fzCAUw qRNeLVtxBSJ0L98kc5D8 TZKwELOqLZI9bBB6qQ0u bGlnbjogbGVmdDsg fyKksGxeJKxpFDloP585 IHRvcDsnPkJpcnRoIERh rDA1XH21SN30nKYwp1P9 wST5L2FfEWOefaig ujnpxKG6LCVjZAOrkF43 Jk6kuGpxEp6wZISaWKD6 QYXboTCdZ3EabG5pMqHu UWUpFBUzU0NqeCSh GPjnP070RUulGyX9MDCs ltUpB3YsRUYklQtzQgT4 f7P2Ps8MP7B5FI68PV23 nOEzm5V3mVZ2X1Lj PFYgpzmjehktrIS8XLRt VTOoaC80Jk8ieVmhVg1w JPMuVII2XNVudDZsZ7Sv nE7qZqDwAIAiSDBb N4BleIIwSHckV644WLln WgO7VMPzjyMsB3WqIFUp rNjzEqB8g0V0Su7ZYRe2 JQ74DT34fCRmj6Y5 sLS0X1RrBLGpdgszrbnt rGO8FOPpDSWviG55Xv5q lXdvCw3eKBXaFFA3WVPz wWFnK1EbmY9qKlAe ZQOeKPWvS2IaaXCwTDyh F540UOcyQmM5RQSbqyVu X0QyGOBmvZrcKjV1k7B1 Sm0OOCBwIY06EFH0 bVV9FD31UG29S0GsMuhu dGFibGU+PHRhYmxlIHdp ZHRoPScxMDAlJyBzdHls AQ6bFm5wBBZfYACa fYmidQKnUxLnx6hdHNIh NHomDV8nwCubM3IdzBZ3 ZJIbo5b5Ss24F90oE2Mb dXA+BMXqhEG9yBV3 eI1uTzOlZwH4AYmeL625 QeNzlQIdEvzxc2jzt4yq iKe4EpH7UNNnabFbjYom JZI8h2GoPa30B32j IHdpZHRoPSIxNSUiIHZh fXxjsg4dsM7zZr7+PGNv cTW6xNG9zJ9kAdTaLzA8 RNdoD054VuZvzMAz Slkbk8xql2yglAs7FgGm IJHmjaNbcLztKHP4z0Qf Pj92J5LveLbcy8MtNjt3 kq85pUBgx1W6aLL3 A0OhAGPenpfteBYgcNkw LE1oHFWqdporAYTswN5z ZHAdL0p3HdWxDnS1EJpv D4ZqksG6WCAyqZVf POnyFTG9L42qx8T9TOGc WGWpJWI4xQC3vW0hjVme bjogbGVmdDsgdmVydGlj UXhaJDkiH371DENg bJrjRWXcbQ5sCFJztZXx gCveVQ9bWHWgtgatEjZW T4NAY77GXQHKL5FXCxNp GHmDKB61R7DeRkh4 JDXchQtbNE3kjDSpOSgt Fh8gzLstaHwtNF7aVKGc osbiMKQzgD2oJUOhpOOw kTyeVU7gCECspccy b609BkAjOFR3ZREksHJs B0WliW7rPmMrTGTqTLUh Y9YjmFEtWDqmK479PKhf DjB5CDPjgaDwK6Jf UIUdkUkkYoY5p2U0Ng6v ZS8rEu3cXHC1SC80EL49 zEQgf0H3xEY2R3RwSTJf berkkbixqTV5AMTg MAUhbX13aSYyXGxxSk8v l9L1x221YTYlHGPdkL93 Us0zbMriRDDsoMQLgY8m jknzi0nummpyZeRw SKRuYRv0ARl5VNIuxYuf DyAuGDJ2KsZ1FCO6pOKb pV4aaOmijboajT9iXtw+ BFHyPTVrcaN5L7Yc Zzh2HTEuyUweIG1gnEFk IGmcBt0pcActqQmcHC3b KGYrvmfpXDVuvJ6nWRMm fYZttXozSF0oTSGf pqirb336TnOvGYB5AUEj wABjR0BclQ0tCmCrFDRc PWYoP1QoyOXqKMyzO854 UJfyQbU4KGOhprYj Q7VpTTYnwTpuTcZ0m1S1 Fa4IYCzBET65CX18tZZk w9B2xOP2L8ReMBNornyc xbfucYG4RBEgAKNf oJ81pRCkTKhbXc8ui2G1 b101JILaXPXbwC14Gi0c jUjwTKNizZIKgV5ztobt t9mjbwcrUtGhPGIh IQy2LBz7FXSoxRarWwNl RAR7JkQ8CQO4rZGecD0s aFwokizddT1pRfn+T1A8 U7TeTohoqPB+PC90 LTOgIK27xACjhJNij8qs bKf9ItYlVMHxUVN5oLbg LNnhl2ZyEGMlE95gbGCu x8G0JVYhzFlgnKUq DyZmdTB4jK3lSQcnhxvd q0yyesxpEaxog2dlew74 lF69U85mSUsnTMOoSJDf PFQfKUHmuYqtyq6c jM4sJf4+IURsbXX0pVD4 vK6pCeNoDuC6XGdoK963 KdYmhWAqWhdvu0xqo2hu sEw7SfArSDAkwxGw pZumIGU7c9FtRj40G95f IHdpZHRoPSIyMCUiIHZh fYpfak4qwM1tHk5+PC9j w0ngiq02kB17kIC+ KWVbLTZ8nHtdWZrjNNMi pF5sFRbiTxI3CZGsKdJf aV32uDTgSFbfGo6dpEiz zRmcFV9lRDPpayru v381BaAvc7haVUKzhIRc QOtiWIC7S67zi6R2GXHy TGRwCWM0yOK2fJ4bvYrx bjogbGVmdDsgdmVy gBkcTPsfLPjwN582SKFu yXrhNdYtkXIrD7jwabQD PM5uMmjyeNP+PHRkIHN0 xQqsGPmxDXBftZ9o HASiA4n4VySrLwG0RYzc Q8MgvbP0HMPijDKiEDYy rPLUpU3qxncyv4ywdkky MeEwMOGzUEw4QMc0 DTDwoTryXiXsQEM0QvL5 BEK8sEBseO5quMscvwjw rA4hGgx+RklOOjwvdGQ+ PBHnNEJ7hKpnCDql VGDnrL9tBQOxY8n4PpYu NdR2FQvqZ1OyxmO3DZWx lBQrBDTwqUZSuR0waxpu p2oieokjJoSyLYYr RMu5FLa7PHFenXabVeCs RMO0HmN9VJU6sWRhnI1m vJxcpxmyiT4oHps+TVJO OjwvdGQ+PHRkIHN0 cJgkUYktNKSlpK5jJKVp T0p3NhBfFtE4JFvlK5Yi afI5SZOgoTOeCRMkdCPK yZ2goohui7pefliq LlLwIELaOMf4GWt2PPEq jNqgLoObSWE0OiX8LWF6 oXHhnS5blXhpiaemxG4u Oyc+ZSW3ANB7RT25 JQ98L1HxOpykjATtcLB+ PHRhYmxlIHdpZHRoPScx IKVcWaCpoOmzPV1dPh3i ZGVyLWNvbGxhcHNl OiB (more content not included)... Normal [facility] Provider Orderson 06-25-2021 Provider Orders [id number] #1.00OTGTIFF Normal [facility] .Auto Diff 1on 06-22-2021 Auto [place] % 10 % Normal 12 [facility] Comment on above: Performed By: #### 1 [id number], [id number], [id number] ####[facility] (DEFAULT)[address] [place] [address] 20200 Baso Abs# 0.2 x10 Normal 0.0-0.2 [facility] Comment on above: Performed By: #### 1 [id number], [id number], [id number] ####[facility] (DEFAULT)[address] [place] [address] 03069 Basophils/100 WBC (Bld) 1.9 % Normal 0.2-2.0 [facility] Comment on above: Performed By: #### 1 [id number], [id number], [id number] ####[facility] (DEFAULT)[address] [place] [address] 91979 Eos Abs# 0.4 x10 Normal 0.0-0.4 [facility] Comment on above: Performed By: #### 1 [id number], [id number], [id number] ####[facility] (DEFAULT)[address] [place] [address] 41443 Eosinophils/100 WBC (Bld) 4.7 % High 0.9-4.0 [facility] Comment on above: Performed By: #### 1 [id number], [id number], [id number] ####[facility] (DEFAULT)[address] [place] [address] 33855 Lymph Abs# 2.9 x10 Normal 1.3-2.9 [facility] Comment on above: Performed By: #### 1 [id number], [id number], [id number] ####[facility] (DEFAULT)[address] [place] [address] 16208 Lymphocytes/100 WBC (Bld) 33 % Normal 14-48 [facility] Comment on above: Performed By: #### 1 [id number], [id number], [id number] ####[facility] (DEFAULT)[address] [place] [address] [place] Abs# 0.9 x10 High 0.0-0.8 [facility] Comment on above: Performed By: #### 1 [id number], [id number], [id number] ####[facility] (DEFAULT)[address] [place] [address] Neut Abs# 4.6 x10 Normal 1.5-9.2 [facility] Comment on above: Performed By: #### 1 [id number], [id number], [id number] ####[facility] (DEFAULT)[address] [place] [address] Neutrophils/100 WBC (Bld) 50 % Normal 44-88 [facility] Comment on above: Performed By: #### 1 [id number], [id number], [id number] ####[facility] (DEFAULT)[address] [place] [address] CBC w/ Auto Diffon 1 Erythrocyte distribution width (RBC) [Ratio] 13.2 % Normal 11.5-15.0 [facility] Comment on above: Performed By: #### 1 [id number], [id number], [id number] ####[facility] (DEFAULT)[address] [place] [address] Hematocrit (Bld) [Volume fraction] 45.3 % Normal 34.8-51.9 [facility] Comment on above: Performed By: #### 1 [id number], 9435038, [id number] ####[facility] (DEFAULT)[address] [place] [address] Hemoglobin (Bld) [Mass/Vol] 14.9 g/dL Normal 11.8-17.7 [facility] Comment on above: Performed By: #### 1 [id number], [id number], [id number] ####[facility] (DEFAULT)[address] [place] [address] Instr WBC 9.0 x10 Invalid Interpretation Code [facility] Comment on above: Performed By: #### 1 [id number], [id number], [id number] ####[facility] (DEFAULT)[address] [place] [address] Man Diff? Auto Normal [facility] Comment on above: Performed By: #### 1 [id number], [id number], [id number] ####[facility] (DEFAULT)[address] [place] [address] MCH (RBC) [Entitic mass] 31 pg Normal 24-34 [facility] Comment on above: Performed By: #### 1 [id number], [id number], [id number] ####[facility] (DEFAULT)[address] [place] [address] MCHC (RBC) [Mass/Vol] 33 g/dL Normal 26-37 [facility] Comment on above: Performed By: #### 1 [id number], [id number], [id number] ####[facility] (DEFAULT)[address] [place] [address] MCV (RBC) [Entitic vol] 95 fL Normal 81-100 [facility] Comment on above: Performed By: #### 1 [id number], [id number], [id number] ####[facility] (DEFAULT)[address] [place] [address] Platelet 295 x10 Normal 138-427 [facility] Comment on above: Performed By: #### 1 [id number], 5594194, [id number] ####[facility] (DEFAULT)[address] [place] [address] Platelet mean volume (Bld) [Entitic vol] 9.1 fL Normal 6.3-10.2 [facility] Comment on above: Performed By: #### 1 [id number], 6429912, [id number] ####[facility] (DEFAULT)[address] [place] [address] RBC 4.78 x10 Normal 3.70-5.30 [facility] Comment on above: Performed By: #### 1 [id number], [id number], [id number] ####[facility] (DEFAULT)[address] [place] [address] 74846 WBC 9.0 x10 Normal 3.5-10.5 [facility] Comment on above: Performed By: #### 1 [id number], [id number], [id number] ####[facility] (DEFAULT)[address] [place] [address] 49944 TSH w/ Reflex to FT4on 06-22 TSH Qn 2.41 m[IU]/L Normal 0.45-5.33 [facility] Comment on above: Result Comment: Gene ral Population (males and non- females, aged 21-88) 0.45 - 5.33 Females, 1st Trimester 0.05 - 3.70 Females, 2nd Trimester 0.31 - 4.35 Females, 3rd Trimester 0.41 - 5.18 Performed By: #### 1 [id number], [id number], [id number] ####[facility] (DEFAULT)[address] [place] [address] 42878 US Carotid Duplex Bilateralo n 06-22-2021 US Carotid Duplex Bilateral DUPLEX ULTRASOUND EXAMINATION OF THE CAROTID ARTERIES. COMPARISON: None. HISTORY / INDICATIONS: Evaluate for carotid stenosis TECHNIQUE: Bilateral common carotid arteries, extracranial internal and external carotid arteries are evaluated with hogan-scale imaging, color Doppler, and spectral analysis according to a standard protocol. ICA-CCA ratios are calculated with roofing sales representative peak-systolic velocities and recorded. Vertebral [...] Signature): Jules Tilley 06/22/21 2:18 pm Technologist: DIANE [facility] XR Chest 2 Viewson XR Chest 2 [...] MD 06/22/21 3:55 pm Technologist: SE KATHY [facility] Coding Summaryon 05-23-2021 Coding Summary HTMLBase 64 IohohadrFJp9yXg+PGhl YWQ+MP2HPGYcM18lkIMi tC4RM2cBZD3JZMFLOLFO NO9SKT7erIA9OEfoJ8Dq biAv QjnbgYFkIA34VWj8QFG2 iIpwNNjisP6lvOAoR7c6 ItRuZD37aB12BRguEEQg QgN7RcAjmlfriKJr J1yhXlPxtZQrXuc+PHRh YmxlIHdpZHRoPScxMDAl XnGjvEiwWH1eHp5nFBIb LWNvbGxhcHNlOiBj o9zsYIAxSDjwPH2zwQbc U4EqsYH6HSQsc1e7Yg07 dHI+LSAmQMI6vBqyQEjz l646IgIcp6yzCLM9 mNNlYCmtAPY6Q25kf3H2 UCBhGPEnGNL2kGW7uI1r hWiqwcypR0NqcPKbCmC6 LSL1pEFdkQ8igVfl zhltyF2tWqh+Z03QFC8E PZLNXP4AMqv8A6TvTywq dHI+RQ45YXSqUJ38qYPg mUVep6qafNu4TjCm MZRePGM8jBsqKJnrh4Yg IKNdQ38hdIOkt2T0CHNk hFramMVhVlHabWE9vU9y QCpqjqqxr7kmwpfo Tefnt7rhva15mD24Y23c FGgbHTNhXSD6CDBnTNGq fQbvcu3zcG7cEw6+IDxj u0bbh7bsnSt1VaRk QVEeldTplJadUSV1d5Cr Iw68L2CucShbk0MuWex5 bb37xGKis2F0dXP7EAxb PPUuqL4tAWqiMhI7 XRTzQjDsyR91bKJmWIhv Pk4ywPhgbKpgQU9iVNDi zzyoOIAonD6gXQNpgUSu kZesDV9oABIvxdtq s331CxYcXIT4GTZnfZVw R0EhuA5cQmVwHWCuFXGz C9DzfAVaBLohT594EOjj KeY4FVGdrkZtY1Jb SBLbwMsvXlE1k9H4Ni3N l1YvelmtUQH3MCbfHLX1 XeN4LgQyWpT9A5QwEgo9 UOGavFhpEA6eW8Hz UQZsmrfjjvauuDO9GVYw IEEfvD02rBKuEDjjRz7y g1Q2w040CPTzLLMkwK40 Re3mfOajYMHodXSF yZ3orhfag8fjggxfNgBb MAFnBWf6VPb1TCHvfDen NxKtSSE7RaU2FUS9iHOx sC3orFpvfdpvnK5a Oyc+Z52bgL5iAIO6YCB9 nxaqASOadnBzSL69BR55 W1LhNrqrnBYnwRF+PGRp ebWxpWyyPJ9kJsBe p5xyk8JtDXzqW9UaKPTt XGgzLvs7LZPpVFP6zIN2 zU4uQKXfNKeqd5F2gHU9 L5BkjnTtxw7hv7lc MPGwCYtmW18ymEXvl0D8 UQVkwZU7MWWpnHvvZwOj vJ45Ltg+JQTvwVntd2Qj Ogxii4jud0ztsOe6 IjMwJSIgdmFsaWduPSJ0 x6NpSv17H89zCNnsBWGj ALIsAXHoRQHldXcwii3l dY9iUf7+PGNvbCB3 zNT8mP9bWZGkBiM5PBpp M323OfLgfSJkXcjrp0yi d8gwxAc3CbYmADIhxkBr dDbbTIB4f9JqTu65 O07uQYazBBYoNBBnKYLa TPOosUsboa7uaT6jCi8+ NO7bg3svdz06wG16hQX+ IZPyYEJ7cLxdOFtj JZVjwP0vAOesZuJ5JEFt LgZdlW88aZIjRBdwZw5c tYpdiWbiVG9dTLIhbmeq h979QkXsf3fxSNCb kJMrHKmqTVW6A52ux8B9 RZViJTWzHSQ6iHS7uO3t bGlnbjogbGVmdDsgdmVy wGwcBKajHCnqR262 IHRvcDsnPlBhdGllbnQg VrRbNPv8W0UjJno6CFRh vCcaLE4wzDJrPQkxWq4b tIuajKpeOQ0cQZKs rlbop032OcNvb0olKXGo zJHbWNhxYCU1G18kv2J5 CKTiDULmSDF9nBP6xH8h bGlnbjogbGVmdDsg zoZxhEceJMftRXexO322 IHRvcDsnPkJpcnRoIERh bPJ1CA45IB77tKSuf5T3 aIP5C5TrRFMhtgcq ensurDK0FSYnEAFcaP72 Nn3tfZuvJv2gOXFuRRG7 FOIrvVViT3OdoW3gWqRc KWYdOYLdC9WoaZUu HUxeU174ZJiuWcG2SQSn zuYeY3PjRNOvtWpaZzL0 p5T1Cf8GI5W7XC12JL11 bRDiv9X3cUT3C4Rw MXPmlufviysuzDS2KZLj JDMjrJ79Qp7qwCqtLg1q GEYxORR8UHDkvYGwA8Vz zC2hGvJhQMArUYMe B7KupBZwTKwhO751DZpq HlR3GHVgviOwP4CpUIKx qKlaPeW1l0U9Kp6TIQa2 DV34ZJ94gYLby2E3 iUJ3M0KsUHOjlvjvagde eOM1BFPaDUVjxB21Vk0e yEvyNi1kKXAkEVM4UTDp mOSgP2JtvW6dTnPp YXInFKVnQ0ZimBToEDku Y321NSaqEjL9ZNEyjpRn M9HrKHWebArgFdJ0u1F0 Du2TROQbHG03WXV6 kAN8WQ58JU35W0LdWujq dGFibGU+PHRhYmxlIHdp ZHRoPScxMDAlJyBzdHls HC7lYk7vGFWqEEEz oBmtjFNoKcSjk9axYYKd LJwcEW3apVziL1ErpSE4 UAYpt8r5To78Z85fL5Ck dXA+KQZdgNT4uDF6 nX5sCxPdRfI3ZNbrR356 NyIlyDJsFplqt6rjb9ph wPc9QjX6KHOggcGskCkt LKQ5u2XnJy17K63d IHdpZHRoPSIxNSUiIHZh yBtwke0tmB9lEk2+PGNv eMA3uTJ6lS0gTrCwJvI9 PLoqW375UcSupNJz Vntqf9nrt0pmmQn9JqOy COTlytTfoIuwEAA1y2Pu Nt67V2AnaNhqd2FkHzr9 ks48nFImc2Q5cXJ4 D8GaSQDivupvsIHfdAiu DI2dJLZrwoyyUOYcuS1u HTWjM9v1HpMfImR1HTix L6HcccV4CZZalDDa ZXfwVSD8W77sk6N5DBLm IHYhFWP0iKR4lB2kiEmu bjogbGVmdDsgdmVydGlj SLjlZMagN157JUSi mRxkBNAshJ6iPIMxeLHq dIihNZ0vJSTxvufjIeZH O3GWU97BPRSZB6ZHAbZb HLaXRK09I4IyTwk7 FNYzwRjdUO3jbYGsCNkk Od7nrBllhPwfSV0tNKEk njlbAAWwaI0oDOJglFFp mFawDO7wJWLbewlj a731EfOvBYN6GLBkzZPu H5SnrX6kOzLuIYAuUARu H5UiyQFmVQjzW999UVjh CzY5AUZkzdPsJ9Sf ZTGldOcbFuL7r0T3Mc8s XV8gRl9dPBV5TO48BH31 qFXjd5L7xII6L8CmGGBb xbancerdaEO5QBTc KZNndA75vKZzKUqeIo0r g8I9u074WOXzGIQfvS23 Ay9tcZhhQFDkvXXUeG8r blcnj3txmsqsHzOb VYRlQMl8WLa9TURfvEsu OrVaKCF6WqS6NSU3nITq rX4hoPjeqlbpsL3bIqw+ SQAhFDGaioA9W8Jw Mkh7MGKdnZooOG2dwZBs QWbvJg3xzObpkOldDJ2c MYPhpobmERLxpV1yHRZa nLMyxJmoKJ9xBLPj bvwjn918JuXfFZI9JHYo aFXcM1CoqE0hBrQqLBVd CZFoB0KwcNYxVRfgN359 NZxtPeJ7URRyzvBp S4WlQGDgcPoxGzZ0i1X5 Re4LTXdTCC60OV42dONc v0I0jQQ1F0KhQQMkfsvi qsbdgVK0MIJlOEKt xN32cGPnJPkpAv4cu1T6 s449BUTqRILetS21Vh8f aYauPVNqnUEYuZ7ltzkg p6flotrwBiDvEINi UZl2TCk5YEBxcHcsGsEm FGD0VqD2CTG6hSXwbA2k rSpmauyceR4lTly+UmVj qOMmbA8qTF02bNUm jPcjhlG0F7SyJhodkRQ+ HJ03SFRiEK36eNQsuEFu v3qazHg6EtQeXUSxDVR8 nSejROdlr1AkOQYh O71xwYLyx3I3FKEsbLud uDOjYaPxkKX8qD6xBJbh bucyh2mditaaZvroj3yi vx33zX37M88kJXrm ZHRoPSIzMCUiIHZhbGln xc4qrY7gAr1+PGNvbCB3 qTZ1zY7dGyOoXbL0XQil G012AdNpfJZtLemg y2tfh5hakZn7InKxBZPc rpPsjGzqWJW1c9VyXx55 Y42xVRrgGDVqJKBuCLPf OSEddAoxec5odP3l Ii8+SI1ij4cvbj90hU85 dHI+VTQeFJI5tWbaEDyf CHNogN0mUJepUlJ0TDJq RtUcuJ04cYFdMDvj Yw1ivKbrrStxNR7jXXKw ufszq622JbWfn1gwOQCi aEJvOItoRGU4B42rb3S0 RHTvDTRnGVG8eAP5 vA2nbWpyxescoLQblRbz boBawEhkIHiqWHyiW080 HNOkiRvcVeDzeTHbC4jn ucENYD6jAkexmLK+ MNZeXUF2wWfnIOtiQNWu bP6zEFBaG4b7OkQoTzT6 VCdmS3JwobG0FAYddCDx TTBgpQUBoU4sfhnx l8rldrcbUhReEMSwUNb4 EBe4SCEutLwdFjUqQBT9 UuT1TPL0oWCmzU0fvZdp vbpxuD2xRxw+RklO OjwvdGQ+BRCaJIW7vYxd LCeyBSOidQ6bHOSyJ4l8 PeZbXiK9BVqkX4ZiuoW4 IGJvbGQgMTBwdCBU jN9jpfjfc4rejahmNcHh EBYrMBw7XBa2EKHzcMlp LlWsCIW2OiG6IZW0oKFq eH6duDwgqbtzmJ2q Oyc+TVJOOjwvdGQ+PHRk KUY1vDeaEUrfFSNmgD5t MILcZ0s1SjVcLjG2NWqf B3GgcbO1KSIwcTNe WHOxiJVXjD2odpwjb7gg pxfmYmXmDWWdOUh9IYz6 XBFkeSkyAlUgHGD9ErB4 QXR2dVJeeG2gdFlz yyhefG8sNhf+WNA5GUY7 OF94IV98T3UuBwnbcUAn bGU+PHRhYmxlIHdpZHRo PScxMDAlJyBzdHls ZT0 (more content not included)... [facility] Provider Orderson 05-17-2021 Provider Orders [id number] #1.00OTGTIFF [facility] Coding Summaryon 04-27-2021 Coding Summary HTMLBase 64 HgmvvdlnRYk3oHk+PGhl YWQ+GM3YZNPhP12brFWp nR5NP4pBUJ6OUKZHTUWE DB3LMU7fiXU1SEztJ0Gx biAv OwpytIMaOV38JMz6YVU6 tGznVEkdeV5qjGYdH5e4 UnFhFP81sV85OZniQZSy DwN6WfUejdufhARj O3yyStYwgDKeFyu+PHRh YmxlIHdpZHRoPScxMDAl ToGciWpeYF4fDw0fTMYe LWNvbGxhcHNlOiBj w5gvEQDrLVpqNK9wkBer W9NqzQU5PIDhc2o8Ea53 dHI+OZDqNTN2tQruPFvl y348BlNzg2rxGZC0 iCHdQPavDNG3P69rd9R2 RRCxEWMfQPA1iKQ8uI2y iOcpzxbcC5OhaOVeFkM2 UWQ7mQTgwQ3gqNsk sbvgjJ6fCyp+X69HVH0T LRPJFV5XAnr6S5UjSqbb dHI+VG44AIPbDN20mLIh eNOiq3jrzHo1VxWh BYSqLKK0mOawRQnmz0Aa GWIbY67tpDPfa8Q2YKPi kCzunFAyUaOipYV9sM0x VLjymdjcn3yihkrq Zjard7uwoa64sO01W47g KStdRZHqMCI7KLLzMRZd jWkriw0mbY3cSr0+IDxj q1wws7bbkEo3PzNb NYXwhlAllBrfFGF9a6Rf Zx60T8CrlQnrz0YnUqu1 yz87bUMum7Y8aGF4FVld MUEkfV2cBUnzIqZ0 DVHdBaOxiM90kWUsUVvm Tj3byLejqGidEL7vBZAr kfldQKCccQ3oWPCjuMKa vMwtEG4gGLLqcmkl i342LtUcAPB3ATExgDUw B9YqvN3kEpEaJNKjDNHy A2XqgBQeUMbrH066KWfu ReS3QGKqhoPnD6Dr DCPxtVpgScO3f2G7Pu6L o7YdkrqqEQJ0CKkzCVX5 BcI7CtKlObP4G0JqWiu7 AKYcfWkxXJ3pQ8Cq SYLyodxrhqgjhXR2SHBa RNAtzF83hIViYXlqPc2p b8K1r369EYKqERIrwC19 Zt5ewSykSUJbzFZR eQ0lnuirn0nediunFiMs BACwBGc2AHx6FKImpKwd FhHxFOO2CxC2XKJ1mJJt bA3juNnkgdzxoK5k Oyc+C69gkT8yPDH5ZIM9 plzwTKTjzuYrUS33IC23 J6XaImjijRBduAZ+PGRp voQorXgjGX8tRmIe u4twi1WeWUrwT6SxXYEc ILvnWac9ZPYzPSV9qSL7 wQ9zPVNhDJavf6B7gWE4 Y0HrwiDgzg7uf6vu AUDeCCkjL14pxAYff9N8 VCQwcID0UYUoxJelYjFv eM57Zvf+FWWugEuid0Lt Clbxl1ill1yrvRt5 IjMwJSIgdmFsaWduPSJ0 z7EeRl62I80mTAdjLFWl TVJdDWLdLLWwsQtawv6n pO9zLa8+PGNvbCB3 sAL8lB4kAIFtTjM2BRdq P990PjAvyZCcBcioh7yn u4aduPg6YyLtVUAsvsAi vRkcYBX2b1IjLs66 V83vOYavFSHyQOFrDRKd HNIrtXiuku1fdE7aCu8+ OS4ty7cosv42pU25aLQ+ XVDlIZG0bFbuJByg ERCxlB0lWJikJvR8VKBy PoDddT82kCHyJEewQz7v xAkirIrjNX3yQQRozzkd p308NmVrh4prWQAr bYGwWNegXLQ3D81hd9K0 NQHeDHFgCBG5yRG0xY2x bGlnbjogbGVmdDsgdmVy dQhkEGkuMCilN629 IHRvcDsnPlBhdGllbnQg HoAzPVk5H2GiVnr3YBAi pYnmDL7byXBrRMikEd1s uDejjWemNC5fXGJv gyyju645SlTfi1upJOQh fQRuWWhwTLS0O07qg9J9 FTHxHRIhEGZ2oUC9dJ6u bGlnbjogbGVmdDsg kfTcuKhkYJooVCbxM242 IHRvcDsnPkJpcnRoIERh pFU7TP09DC61bPWao8B5 pCZ7U6UwPQBocexs ycqtfUH2ALPpJXBlvI21 Bh4vbYwfJj0sHEGuKDG5 QXNqwMFlH2CvdA4vIvRd OSStJFEcW6JkmVQd IZulC776PXcdQaH5IACj ylMkI8AqTCMilOmqRvL4 d0K4Ri4EF3E6UK75KF24 nXKgl1O1nRH6E1Is ZHXacjlydbpwbQF0AXYs AGHfaL27Qk5thYspPo3e LDIeWZT2OEUmxJNhS9Iv kI4wFmJgGOQlAWJv I3DtbXPeBUcmF050FJro OxP2FSWvchObZ1HfPRHb fTuxEdO8z8C5Mn2HVZp3 VI94HV92pODbq6N5 zNJ2Q6CpPDUgoejxdewx kBQ0IOFzJOXmsO24Qh6n rNoyNh1pPNPaQGY7RQOv nIEhH4YvbN9fKbGm RHMeKNWsS3MrbVHeELwl A866IPbbOcH4ZPDxayQc G9YdESQnuVeoRvI5b1T6 Hm3ZIOTbWC58ZMC6 xGW8MT93FM49T1PdBjsg dGFibGU+PHRhYmxlIHdp ZHRoPScxMDAlJyBzdHls JB2zUu4aEAYyUPGs gOjukAVcFhMed6yjOTJf HVqlTV5kaFvhA2KfuLO4 CACje8t4Yj62E73hD5Ob dXA+GRWkvZJ2lCM8 aK0uWhKbYkE4XYxcM811 EjQbgBDdWtvmo5azg0lu rIn1IeR2CSRrhjEjoYnl XFO1k2UwWq87K49l IHdpZHRoPSIxNSUiIHZh hLiffk4ulH0rNk0+PGNv cBZ2eCV8uC7gCpYqVsR7 AAwgZ750VsLgpKDz Advgi6wrs2hadEf3DwFd REKwthIwhReiQNM3h8Qh Ib16M2MnkXqaj1JbLhw9 aq92tSDbk2S6hEE2 Y3YkFIQzghbnjTJvoIdr AC8vSSFxbxreTBUpxX1u UFPnG0x6EqDeDqZ1OVcp P0BfhmU7GUGvfNTh POdpISS3V66ns2Y7XDRv TYYaTSH7iHB7xH3vkCqh bjogbGVmdDsgdmVydGlj JOecNKcnY539WCBc wDpaVSArtP3pRVDpdKBp oArkLG7hKSBojvcaGyCT G6LIY78VCJQUA5OGNiBq HTiJKQ93J5BkVuq4 LAAkuRqzKF5faGGeEFuh Ci9nbDyxrRdgFK7qSYWl zbfaYWGzqC6pTHKzyXRs jDafPN7bPHTdyavn p341YqUlWUR8LMWfnTYi J7QltQ9mMbSlXJVhQZPw H2ZcqFOaLNcwN807FZpn AzP8HZSgfhOxB1Xd YHOscArrSuD4l4I8Fc4k CG5xMo2jHCP6RD75GW60 vPNnb2I3xAB5M0VjCOIw qzcosfxnzUZ3WOAk MJTjjA23yMOnOVijRa3k y6Q8y026HKPdONGmtX40 Zz9qnWtrBVXwaGMDoF8i gmwhr2ejcrrgGsMi LZIgBWi9PZp2CYKwmJpd OxUuOQP7EoI3DQQ2aQKb oG3jbFgsxgexsN6sJws+ ZWPkEGPotzF0R2Ks Hnb2OZLurNbsBB9wtMFp KFqmFh8vaQlkwFksIZ9m YIQwkryrDMFuqF6hDDZu gXOuvMekYK4cOTSf dudsn064BvCuYKQ7ZQNp nZZlQ9UksX6lMqRfNFKp ZKYgW5JuvGJnGWsoI647 MCgcQaW2VRTeseXw J1MkNWSyxYvmMuJ0m1L0 Bd0CHDuHPI83JS68rQSz g3V3xMM3C9ZzFLCatcob rzbtdPN2MZWlNCPe oR12iWEpMRwtRu7of1E1 m304KHNvWTJioQ25Pz0v eXyoBQOgrILNhR2cezbn m9bibcxiBlTpHDAy BCk3KHt0HVRcaSlcGlUx EFI6DwB5URX4qRCmmL1d fQqubuhpuP0xJjo+T1A8 I2TsBqvdjDD+PC90 LYWtHW99pKOdgVTyj9lm jMt0NzSvPFDxOIO8vKwo HNxxm0JtWVKsW44snLFn x4J6MYSbhOullLGi CmYvkPT3sJ5nQDthysgv z2okrzxoSxwid7rtha44 oN59R87dAMwaILCjHHYn HEDdZHStpQoigh1i iS4qIp6+KMXdaMD7iQZ1 vJ4pFvNmBsU2MZmmC716 TqKwlJEoKxlna9bbt3zj fMr4XoBmPECglfDo yEliVKC5l1LrXe70L97z IHdpZHRoPSIyMCUiIHZh cUkjji0aiK7hFv2+PC9j u4bgtq17vX40sEI+ NYYpZTH3yNdsVZiiCJWk wG0oZTztUvV9UZHlZuSn iJ07lZHjNRcdPj7ciHnz hRngCZ2aHVWvkzkf u894EyEuk5lpIMOefULr SKynEYY1V37rw8P0BDHs HCTqPFH7eMC5eI5xqQjt bjogbGVmdDsgdmVy iAuwVOvrFCfvH169KQKu kGjvZsEvzVAhG4bnotTU HV0fVmasjHL+PHRkIHN0 lCnuMRluZDQyqW3s ORJlJ1u1TqAkYuF9CBxa B2SxyqU8CXQqgRGsHHYw xKWPxI2uyoezi5gtrqmh IoAbLDXnPGq3XZx2 TOEncXymBlTsZRI5RkJ5 ZFD1cSKolY7wfDzzsiqt kC5tAwj+RklOOjwvdGQ+ SEDeZLG0fAedBKnv AMKqsD7pPTElY6w5SlEo LiE3HFybX3YqnsC1EUTe bWUoGQYcrPPLjU5bsdja m6sqvvfaNyQpDAHe BDq3BWz8VGKjsNciGzCv PZW1DxD5SOE0lCCbkI9l nYkwpzgdbQ4vWzb+TVJO OjwvdGQ+PHRkIHN0 sKvmQSukTKBjdP8rMBGx L8j3TmVlOpK9HOovI1Jq ehE6ZSHorYHoTXSwvMLY vJ9veumad8lfunit VbPaINQsROg9WHu4EYDc nPtjJyJqJZM9QoM8BXB5 eZRgyN3zwWadqspwkA3n Oyc+UFV8GFK7JV27 PR95J4VrFgpeuYVwrHG+ PHRhYmxlIHdpZHRoPScx ZGHgUxHhdJdqIO9jJo7q ZGVyLWNvbGxhcHNl OiB (more content not included)... [facility] Coding Summaryon 04-06-2021 Coding Summary HTMLBase 64 IvdakpnzBKv9iVj+PGhl YWQ+KR4TMQHpF55bxUAq hZ4BR3qFGL3THLHESHUI OK5VMQ7kpAB8UKgpN0Ou biAv WftvuGWwBG71DBj3MEN7 vBiiQIaniG0djZWyG5e4 AbIvGL24rQ01CChmHAYh KqU7KdKfbxukzIPy B0zjYjChiLIeUej+PHRh YmxlIHdpZHRoPScxMDAl SsSfjBiyKS1gTw6rAZGm LWNvbGxhcHNlOiBj t1fxSHNiVFuzPW2ipVfb N4YboHW1CSVol2k8Kp31 dHI+XEOmRJX5uDobRPqa i735ZrOqb5lsEWF8 gMOpOJtfOJH4U48za2K2 WEMzXIFaJNN7zAA7jH0a iNlxdjupJ3WgcEExSiJ0 XQW1pVYikK5yvElb vecmvG9sRwu+C94MKI8F GPVYML1XOwt4M2KkUpwt dHI+YK06LLOhYJ59mAPg mCVgd8covWj6OmCr VYFaFAP1qQlvMVcwy6Ia DDBsI83iyBKzq7R0ZLMr pEhvgGWpHzVgySC8aO1o VLooedjxn8pghzib Hvqsd3yydx53qY66B63j NHuwXTPoLSZ1XCKsHTDz wMmxao7eeK2jSg1+IDxj e2pan1cuqXq6EkDs PQYypvTtaSgoMWY3p2Qq Vu35P3NrwFjgx4NqHjb8 pw48cNIgg3Y1hVQ5DQkd AVNplY3kMIpaDpH8 LJUrYsHxvZ54aEGiXHwp Zx9ioKkgxUihLQ8wLCOb fwzuYSUddJ0cKKYdoBAl lRakLE3hWRGzxwyc k379SaPjWAJ1VJCbhBYt F3AgtP4kYqDyFYMjWCAy O2BjoXWiXZakA736QJng VkZ9AIXvrbMxG2Ai JLWuaXagEvC7x0U3Pi2X k4QdxxzyTWY7VGkcLYQ2 JmI1WhQvLiZ6S9QlFhb9 RSSwjGthMP2bV6Ui PWJabawejvzzkUI3SAUr JFKgsL70jEDvGIuxQd7p y3B7c485CAUrHRRclI51 Py3ymKbxKRNlwGOE hO0uxxant8xyssnfTeBp NZJwSIe5MGf4ZMAvnAzr UoRpNHA9XgZ8HMB3cZWe fZ8hzRerbcbazR2e Oyc+F11vrU5uDMZ8LJW7 hidtYARgngGoDQ61ZN61 Q2LePddewWUbuYN+PGRp tmIasPjhDS1gUtHi y2jwv4EnZBltT1EcZPOt QJrxRrn0UKWoDSC6uPN0 bM8iJOBjDYdid0F0eGS6 Q5CpfwNwbr4qa4jr RFKaFUrwT45ntGZaz9O0 KULrjRR5UHBfwTznKiSo jC01Hlm+SHDxbZehg9Em Okiqm7qye2ptaFm3 IjMwJSIgdmFsaWduPSJ0 w9TpQz63A34jHKneJLXl HBLbZESaDNJupIltpl9e eR8zNq8+PGNvbCB3 gNY2iP8bJQQuLqW1BIxv S608DmMzsBIeTlxvn6ur x8wvrBt8PgVnBTKzqzMb wLlzTJD5b1CxAe21 O33wJZojHQBdNYOvXSYm ZGZmxZwejv3pwF6dHi9+ VU6av6kpki72rZ04uVJ+ PLXaTQU9oFoaYKru TTLgoB6eBHroEbD4GTFu RzCtpZ17dBPhDPgpQd2o pLarbWejPA6jLBBhgcby q762KuPlb6fvSINg rZTsJGxqDRK8C88rz2G0 RFJkBCLtQNB7rLL8oM2m bGlnbjogbGVmdDsgdmVy kDmwNImyBMriN566 IHRvcDsnPlBhdGllbnQg CqEuOQb8V9YfLpa9NOIo wUxeNT5jkEVvNNykTs6q hZsljFdoXY9pPMKj svypw287HdAzy6qyYHAy hTNdIRsoQTZ2Z64ur9S1 FAQfIBFyCKC0nFC5vD8l bGlnbjogbGVmdDsg gyMjbPqwNFwhGRwoX045 IHRvcDsnPkJpcnRoIERh tES8KF53AW56kFDjf6J8 aKU2T7VjMSVualkc hisbjRN3SMTsSLSomE32 He0lyFesYv7vRHRhCRC6 FWGncBRmE9RseP9cPpCv XNJmVZHhM4TpxOAb NPzwY908KLxmAqB9DFSn ibEaJ4SdMGKdlTrtPyB3 d6C0Ry2YN3O7OL40KB28 bTXlu5A8oOI8Q4My VRGxmxgqkpdgjQA3YRDd WOPmwB12Hb4mzPzoLi3g WSYdDBC7CUCnrZVwI8Wt wF5vAlZqHVIrOMFc G8MctGGsIAftF663RBit TgS8USGolkNtN7RhDTJy eHnnQlX0l2F8Cr7KHEq3 CV06UQ95oJBot8P4 dNR6R2JiOIZawfhbazsc rXI2MQXiZPEvlF25Ma4t iBztCt4oHKEcBFD3FULx fMZcF2JgbY7aAmVo WXBmDQXzP6GxiDGxJBlj S083ULuzXpP7LWJkjsBn R8KpNMZoiRznQuK4e0P9 Xw1LNAZsNN94DQG7 kOS0YA49XZ75C1CtOtkz dGFibGU+PHRhYmxlIHdp ZHRoPScxMDAlJyBzdHls MF1oQy2xEUUfGRVg rAjdaKJwQdBzn0wwAEHa MNtmVV1wsQgnK4FfkIV6 SVZto3y2Ho92R33vR7Wa dXA+MRGtqRS3wSF3 dM8vAxErVrL6RUlpC480 SmWxjPPqOzglt2hig2uz zRa4WpO8MBMttxNjsAgs UTW3r7VsHo19H19s IHdpZHRoPSIxNSUiIHZh yAhyfg6iwF9qFd0+PGNv bZJ0pAC2qV0cIsSkUiZ6 XEhcW705IsWvmWQg Vfxos8ked6prhYf7CcDd CAHozgBuiSmoEWA0c3Ap Ti25H0MknNryx9UyHeg7 gw94nTIzs7D4xSD2 B2FxWTRdqauhiCSocSwe YV8pJYFpzqhcXLEdsF0a RMHmV3i3NtFcDcS7MZpm F0RmpwX6SAIlgZGy UThkELM5U00ue5G7WNJw WPEvHKH9zQZ2zV7axDki bjogbGVmdDsgdmVydGlj HInhYLxpJ952RICv kCbgTDCagU3iLHRyqYDc hXalLU2jXECshubpFdOE Y0LLQ90OWBCXC5MOImNl AOuBZF15K1DrKat4 UMVupHeePH6piQIoFGec Pv3dtDnzzWonWB8iSOKw amkzXGExvA4wJYEgvZMv sXmiNH6jYDBidnwu j875CnFsVKR0DGNrhOTj T4KwwL1lRpPsORMgZEUn D4MdpNHzMFmeW202UXgy DjW7IDIoshDwA0Ac PZCzpEtdZsG6z4L0Ae0h DR8jIt2kMID5LE49GD69 uMNed1H3rHW9Y7LsPIAa gyztqodnrMR6MCQe IPKqjD43gZDiGPllGn4z o0O3b120WHWhLUAncG28 Sa8diCmeUOLbsMYVvE7p drkxy9ydgtswLsLg VZYnBIt1EGp8VWYchYea LiZdGNO7AdP5JKQ2fKMa qW1djGyvarnvpN9wCpw+ MNWgPKUxiuY8F4Br Bsk4BXSapVvnNV3niJEa WLvtUy4mtEozxAgzTM2q CPZgviadRYNngV6aJHPi yDUtzCwoZO9cKLLs fypyl685UsXnUHV4IMWd pPZcG8XxhD7kGrDyUINa BLWkC8JdfMIvAKsaR111 WSrfHpV1OXWsoqDz F2EcQHKaqFblUhS3p9M9 Qq1EDZkDUP91LR29cCHk x8R5aSR0S8VsGGFtkjyn sxuxfOW1ZWNsXZOs eX00tSUlQWlrIf0vq7J1 g944ATKgTAZmiY38Bk5u nLpdKWIokYARpW5crkzf l0fjfnooDwWqUREb HZq2CAd4LYCqwHsgOkNe IWT5CvO3SRJ9tRXppM8n fLidfhexeA2qRdt+RW1l srgjfdC9SM46QK33 K0NxVfnwdAIidLV+PHRh YmxlIHdpZHRoPScxMDAl ZrIhjYivJM0nTn2tQEAi LWNvbGxhcHNlOiBj m4tiVJJlTDsmHB1hoGtn K5NauEY2OHNiq4c8Ri99 I59bR7XxzDK+PGNvbCB3 gFM3yJ5uLjQjCfI6 CFoxA985WnZjkEMwVtfx w1huk6paqLu6AgCdDRLh paVwgWamGVU1j1SeEj13 Q03qBEqgFAAfNJSz FKAiIFXkaOzxnn9xjP8a Ii8+KLVrqFC6aRD4aV1v UqQkVbN9KAgbE343GgYm bMBjAexjG22zK4Qs dXA+POWmNjq1UYOesXlc MW5zsWNnBBvbRa5pGFM0 GrTqAjCsVXafH6SxBKQg ygenheppxZR5SZVm HRFrtA25Cw6jnSbmPn1o UYDuRIN9AYCujRBoJ6Dv gZ2pCrRlLDExOFDhE3Qa qGCqVGxbB221FVao HvU3SALbrfDdP6BaBEBz bDvzCaI7v1Q3Xn4JfWya jLOmVT1iDwFdSVy7Q9Ti Wwj5LXGtbQmaFE8d pOIpSXpgGa7vvQybqStj HI7zQSXxqbvwv087QuRp p4kfOOTpqIEwPCxhQEV4 O91qc5Z0BADyOIXy IBD0fLT7pG7poAtakxfx bGVmdDsgdmVydGljYWwt LWwrV131ROCquFwtPxWS Kuf7O3CgDqa3KIOm eCvtJP4yuPLqRKpmXz5q iFlvxMrrBM4pCQUwfxfh h721DkEqv2vxIJYsxYKn ZJipCUL3T02of1J1 BQKbIZDzNFT4jYX7lQ6i bGlnbjogbGVmdDsgdmVy tKsoUKkaBPneF307PNNj bScsAj3SRgl8Q8Bz Bjb1CEMsjTmcND0wbXAq REatSw7seWmbmRmoXP0d YKJmmjhxf989VjUia7rn IDEwcHQgVGltZXM7 Q57sy9I6DDUbEIAdKCK5 gQK6cY8mfMtvjoqryWEx dDsgdmVydGljYWwtYWxp R500FOSvcBixVdKb eWVyOjwvdGQ+OC13pm78 E9LqVpbnTqx0HQViVDP6 nMW3yR0bYRKaIScry7F6 vDW4T5RflsWrpj9w b2x (more content not included)... [facility] Coding Summary HTMLBase 64 YgvaxoisLCy9kMf+PGhl YWQ+JI6OFUHpH66zrDRw gI2KS4kMJX2MHSNCOFNW LT0TWA6uhLY1YUjcY1Ot biAv NiskoMYpTQ91LIn6YPC5 bNyxTDlrkW7xmPHpE1r2 JfUoCI06sI25FPozFAHa RvQ6ErBdhewwrNMm A7ebNoDtsBCoVna+PHRh YmxlIHdpZHRoPScxMDAl ThCwkEnqWT1pZn7iEMKt LWNvbGxhcHNlOiBj l8niZCAhGIljQO5gyWzd C1IuzTU4FAJxo0c0Jq14 dHI+KLShXHS9xWdyCWml t318HsNmx0srRFC3 gSKdFEpiVYU8I86ko3K9 EKDzGEVfTMH9vIK8lD7k pFeptxugT1CgwRIlCpF6 OLH1yNJotD7arLln tyfzuQ1yHng+E16RJE2K EENPOD3JRfk9A6IsHnsm dHI+HD03PZDkHA32fBLv aVLwf1ausRq0FjYc FNTgWOO0dTzzSHkgd2Ur IRYmY69iuAScb0B3YKKj mGipqFIeZaHxjDT4qI9c MOykfchbn6ukptlx Pdvtr2mqat10sR16H38n YKzdANFnULQ5LGDuSAYs mWunxy7gfR5lCe2+IDxj z3mxh5womYh7UrUc OTMazbQcaAphMBN6r9Rs Gt53J2WmmSbln7FsMhc6 kp12iODaq6S3aWV9ACza GPByqC0oTJlcWyU3 YUCoYbQytU26kGGwNPop Wv7fkVwcbQfvWF6jJVHy zfbfQLVjfS1sYIChzTGz aPenHS0rBLZpeydj j791CeXrGYB7HNTicGEq X7SryY6cOwPzKLLbZUSm O1MetAYgVDmpE573STfw WaJ0JDJiftCsJ8Gz ZNIszFcvQeA2a1A2Kl3H f6KzvbraFBT9QHasUXU5 MnU2MbFuZeR4K7KpCge5 OUAufYmwZO2dR1Au NIIlwhuuwmgytRV5ZIDg SXZxwK11qLSvOUflUe9n l9L5c664FWLfPCGbiT87 Su8ejQqgAOPcoHMR xA0sfhaml5igylagYhHi KLEyKMe0PXd3RYLnbRvd GeAzXEL4CfR2TUU9xPFv hM5tpAnqqeioyS9q Oyc+W02cxH9jRUI8FCV6 rtjkHRTzdfCaDI13RX85 K1IrYjbixGBdzCW+PGRp rmBefBtkHZ9fApEs p6jul0LrBUadL1YvOTXo VSujWlp4WWIfKXI1pYY5 aG0dCUWkVHels2H9bDT6 N2FwlcPida3eh4cg DKPuUWlxD61isPDov4V0 XTWmfVZ0WWObeVjvBkQa lA29Gai+SPYrcXifc3Ma Zvpyb2wxe6pifLj9 IjMwJSIgdmFsaWduPSJ0 w6RoMs39L46xHLrzUZDj KHEeFAPgICFikKgqme8r aD1dSh1+PGNvbCB3 zRW3zL4lNOXtSdY7DHaj F084TlRgkZSoVvtfn3kc a8ioeKe9BjKwPGCtofCr bQheAGK3q5BpXr40 D83gCJyhHQGySXZvIVUp XQMppMpzrs5lpD3rHe3+ QZ2pw0ltwr98xF94kGC+ WRJiBRP0zBotDMix GARjpV4iUNrfAyX6LRKv DpKetI62kTGcQTutOv8j qGzqiSroLD7uQSEnhuij t804NwUmu3xiYZYd ePAzPRuaNVT1D21yx1A0 TCTtEYEmEBQ7pQY5vE0m bGlnbjogbGVmdDsgdmVy tAagTKvqPQrbF169 IHRvcDsnPlBhdGllbnQg GjJnHGs6E6AzIdb4GBLm aIcdNC6svGToFOfmCt6h tCdyqCnwUC2jKQYy uvxlw978CjRbi7moTAKw bSPuVEgvITA1P08le7F5 QXYgGUVcTVN4hNT9eW8j bGlnbjogbGVmdDsg xlUciIzbAIrpAPgtW267 IHRvcDsnPkJpcnRoIERh uRY9NO40AJ96jRGol0U8 yXE1D2UcQRTzhdsx tasufDR9EKMrNXNfhJ10 Mq7rcDpdHx0lEEVeRHA1 SMWxhMKeT4UqkZ2rQhRl FYRlKYHoD7JjsKMy JBvjC549DHtvGfS6EXRy qiHyI0YbLDMukHtgDlS6 p0I7Ef6FG0C8LC41PH23 tIVnf5E5dIB0X1Al FCRhekqzpdlryDX9RLRn FLKmnG11Ho2udGclXj4j EVJkXMQ3EHVeiSVnH3Vi cO8iAyMgFBZgDOOv E5BgsIEnNTrlY100BXgr HtS4BZDxmnYeZ9LlKWSp aUtgRfB8k9E0Sy8FOOk7 KT19OZ23xFZta1H9 lXP4W6BzUNLepriaiuuk gEG9GFEcNUAxmS75Xd2y eBfiXo9uTROeWEF5QEZv qWObC8ZumL9yDxSl UOSzVCLdZ7XfuAIdRBmz S671PGdhQrI5PRBwwsBz E8RoEWGwoPsqBjH3c1V7 Jw0QWKEwEG56LLK7 qKL0VQ78ZF23G0RfUcrp dGFibGU+PHRhYmxlIHdp ZHRoPScxMDAlJyBzdHls RB2tWm4hKKAsKZDg pHmqwNPkSvVif9spNBHn LTnyIV2xeAryJ7FjyZN4 UOVxl0t0Lx67I36yL2Kf dXA+TNMgbWU5oLE3 yG1pLdIjZqT3PZhhB716 IpVchCMpLjgse8zpe7rx dKb1CtB7OWVfndKorUxj MGW9k4ZaJe63J34h IHdpZHRoPSIxNSUiIHZh eMpyib9qmS3qCy0+PGNv sYX4iAX0lH2xWjHwBdK6 UVdrD585ViSwuFHo Klewp3qxo0kyvHp5PbTy HBWxwnTdgCuxIYP5u7Ma Zu55D4NvbVxvp0GtQjt3 dp63bOHlg0Y3tWU4 T1FiJBIgprdwcQNpbPiz YS1fIHMyzyehAHTtrQ5z FUYaQ1l7IjAbUeM2THec B1IhxvG4PTEgwRCs GGprYQT4N68fj5F2UDAe NXUrAKA4eHV5zP6kqUgb bjogbGVmdDsgdmVydGlj HBkkXLbtK463FIBv zGclBBJeeN9xTJMhqTQv zGnrTT7lFYDdlpdsHfES H5ZTM98KUSVWQ2SPIpSx SDyFVE49J5WrCcb0 IKDpeJntKK7plSJkSNzo Rh9sqRssfJfvTG4ySMOl bawiIKFgbP1eYYTnkBBe hCnqNI4cVYExojwl b700GgAcEHY4JNWkaXIz O1WzcA6nUoPoEXTmAOGr M9LchYXrZBhpP735EJcl QoR1HDSbiuChW5Eb ZSYjrTrzBiG1j9H0Kz7f AG6zMy7uNGQ6IB03RP85 kLPyl4P4nEN3U8RuIHNc doieqwjzmDJ3ESGa ESZvzW63oSGbGMspNa5r q0C0k108KYGpSZVjoA87 Vx1vdChbKIRbrHDYhI5d vhrhq4ldxyrzHaLb GXKjUSe0FUp5NPTbgBgo ErQkMPD7ChM6JBC4iNYs zX5qpQimsndllJ0cFki+ CKSbXBUxinJ9Q0Rj Hgf6JGKdyUgzKW4igSAf ZWdsUb6mfIozfLwxGJ1c IABwpgzuQLCjfN7cMHHt nCMklSwsAU8rDLHw prlvq020VbJkKRO6RSXy wBBwU3ZmkL4qWzPnWPWn AYKfX8HdvNAgJMqjB084 HAnnOkH3RXTvgxPr R0EhCOZpqYvaLaB1y1T1 Jh2PJXcRJR18RZ02kWKj y2K0fOC6A0AqVUJaqkqt fuxquVU7JAGfVFGz gB45tFAmZKluLg4oq5Y0 k151URAcZERnqJ77Dp1i pGhgLIFqcUFDeE2tjffb j3zmzbhzWsJuIHGj SDp9ZRa6QTNukEdlToUm MEH5SoY1TUT6gBLneP0g aEfxgnzucJ0lTwn+RW1l yticxkW3TC66RM88 G3OnJkdrnOUviKJ+PHRh YmxlIHdpZHRoPScxMDAl QoVquMqsZG7lGz1hVKCk LWNvbGxhcHNlOiBj p9zcBUBgDQlzVF9hrPin O9YwzJP6ASQcg7g2Pt68 Y03xY0VedKH+PGNvbCB3 qUP0kL9aKsCaOsT7 KBbiU097DnPjmQUjAegt r8zdg5wbrCd4ScViYYMs dfMjwHmuJTJ8x4JmAm68 A53bEFooMYTwUQTx LRXlZUFdzUojce5slL5m Ii8+TGBstBO3xIE2lJ7a JiOgFhT7HLggS663IoJc kYUwQlhgF66xQ4Kz dXA+HSMmXad7OQFyuCje GS4uoHBaWXkpBw3hNHJ8 PoEdMlThNRmtV6EnJJZw ebqnkxbeqQM8PUUo DJOfwV26Qu6dyGzzXg5v WYAwPPG8SSHtyQGqA5Bf oW3bSfPzDQInLAFoD0Wj eALbTOrgQ273UObo QxG3OWXamaKbJ6JkZIEc yZzwKcQ2d1L0Lx9TtGbe oBYvTZ4yYlLrOCw7L1Sr Uta8MGSrhAbwBJ6n fQPxISbsQh9udHztwLie KV2dSISupvuox329HzCt p6gcYJQwbKFmDEcqPNA9 P12hg2E6HCPyFPSs RED4jWE6jA5ejReoslft bGVmdDsgdmVydGljYWwt PWjqW892DEJbyWfxFwBF Rwk6I2NgEfu4FNMw cUvtUR4tiYRnNYsfQo3y vUhoePwaMK4fRZBsyizv x105ObSyb1goJQTprAFk BJzkNYL4F59uu9T8 XQCxNILaBAM8cXE1vT2s bGlnbjogbGVmdDsgdmVy uIohUVihWGvjQ666REPa fXvtSu7YKvx9C2Mv Xqf9NHXkhFatXZ7shNEq EYroJz7vbEdbuLbtUL1c THYkykzhi936ZbKku3lx IDEwcHQgVGltZXM7 A54oj0K0RIFsLNAuQTI8 tGP7aA4csCgksygjkDOw dDsgdmVydGljYWwtYWxp A277WJLeqQidOoLp eWVyOjwvdGQ+AM34jq62 W3QsDzqxFue9TSMhSZS4 cZJ1cM0fHDAqKBlxc8O9 zSE2Q5CnoxFevl2w b2x (more content not included)... [facility] ED Clinical Summaryon 2020 ED Clinical Summary [facility] Emergency Department [address] [place] [address] [id number] ED Clinical Summary PERSON INFORMATION Name: ROSA EASTMAN Age: 55 Years Sex: MALE : 1965 MRN: Acct#: Visit Reason: Hand pain-swelling; RIGHT WRIST PAIN Arrival: 04/01/2021 19:05:43 Discharge: 04/01/2021 19:35:00 LOS: 000 00:30 Check In: 04/01/2021 19:05:43 Checkout:04/01/2021 19:35:00 Address: [address] [facility] [address] PCP: Provider, None PROVIDER INFORMATION Provider Role Assigned Unassigned Miguelangel PUENTES, Kenisha ED PA 04/01/2021 19:10:19 Shira RN, [facility] [...] With: Address: When: Andrew Mckenzie DO [address] [place] [address] [id number] Within 3 to 5 days DIAGNOSIS: 1:Sprain of right wrist Patient Understands: Yes - Patient/family/careg iver verbalizes understanding of instructions given Comment: [facility] ED Patient Summaryon 021 ED Patient Summary [facility] - Emergency Department [address] [place] [id number] PATIENT DISCHARGE INSTRUCTIONS Patient Information Name: ROSA EASTMAN Age: 55 Years Date of : 1965 Reason For Visit: Hand pain-swelling; RIGHT WRIST PAIN Arrival Time: 04/01/2021 19:05:43 Primary Care Physician: Provider, None Attending Physician: Medhat Hernandez MD Comment: Visit Diagnosis: Diagnoses This Visit Hand pain-swelling ([id number]) Sprain of right wrist (S63.501A) Prescription Information: If you have been given a prescription for narcotics, seek immediate medical attention if you have any difficulty breathing or any sudden status changes such as confusion and sleepiness. If you or anyone you know is experiencing suicidal thoughts, mental health, alcohol and/or drug addiction problems; contact the [facility] 02/06 Crisis Hotline -Koeb 9FPFE fy 402464. If you received any narcotics, sedation, or [...] any legal documents With: Address: When: MagalyAndrew DO [address] [place] [id number] Within 3 to 5 days Medication Information: The exam and treatment you received today in the [facility] Emergency Department were for an urgent problem and are not intended as complete care. It is important for you to follow up with a doctor, nurse practitioner, or physician?s bilingual medical assistant for ongoing care. If your symptoms become [...] so we can reach you if necessary. [facility] Emergency Department has provided you with a complete list of medications post discharge. Please inform your financial services education consultant/provider of your visit and for further instruction on these medications. Any specific questions regarding your chronic medications and dosages should be discussed with your primary care physician(s) and/or pharmacist. Medications to Continue That Have Not Changed Other Medications acetaminophen-hydroc odone (hydrocodone-acetami nophen 5 mg-325 mg (Crary 5)) 1 tab(s) Oral Every 6 hours [...] With poor (more content not included)... Normal [facility] Vital Signs Date Time Vital Sign Value Performing Clinician Facility 02-20-2023 14:00-0400 Body height 172.72 cm Josué César Other [facility] Other 02-20-2023 14:00-0400 Body mass index (BMI) [Ratio] 32.08 kg/m2 Josué Evangelista Other [facility] Other 02-20-2023 14:00-0400 Body weight 95.71 kg Josué Evangelista Other [facility] Other 02-20-2023 14:00-0400 Diastolic blood pressure 80 mm[Hg] Josuéyousuf Evangelista Other [facility] Other 02-20-2023 14:00-0400 Systolic blood pressure 130 mm[Hg] Josué Evangelista Other [facility] Other 01-22-2023 09:40-0400 Diastolic blood pressure 84 mm[Hg] DO Britt Rumschlag Work Phone: [facility] 01-22-2023 09:40-0400 Heart rate 70 /min DO Britt Rumschlag Work Phone: [facility] 01-22-2023 09:40-0400 Respiratory rate 16 /min DO Britt Rumschlag Work Phone: [facility] 01-22-2023 09:40-0400 SaO2% (BldA) [Mass fraction] 96 % DO Britt Rumschlag Work Phone: [facility] 01-22-2023 09:40-0400 Systolic blood pressure 136 mm[Hg] DO Britt Rumschlag Work Phone: [facility] 01-22-2023 08:47-0400 Body temperature 98 [degF] DO Britt Rumschlag Work Phone: [facility] 01-22-2023 08:12-0400 Inhaled oxygen flow rate 10 L/min DO Britt Rumschlag Work Phone: [facility] 01-22-2023 07:35-0400 Body height 172.72 cm DO Britt Rumschlag Work Phone: [facility] 01-22-2023 07:35-0400 Body mass index (BMI) [Ratio] 32.4 kg/m2 DO Britt Rumschlag Work Phone: [facility] 01-22-2023 07:35-0400 Body weight 96.8 kg DO Britt Rumschlag Work Phone: [facility] 03-13-2022 11:45-0400 Body height 172.72 cm Harvey Holt Other [facility] Other 03-13-2022 11:45-0400 Body mass index (BMI) [Ratio] 32.23 kg/m2 Harvey Holt Other [facility] Other 03-13-2022 11:45-0400 Body weight 96.16 kg Harvey Holt Other [facility] Other 01-14-2022 14:30-0500 Body height 172.72 cm Harvey Holt Other [facility] Other 01-14-2022 14:30-0500 Body mass index (BMI) [Ratio] 32.23 kg/m2 Harvey Holt Other [facility] Other 01-14-2022 14:30-0500 Body weight 96.16 kg Harvey Holt Other [facility] Other 09-19-2021 11:00-0500 Body height 172.72 cm Harvey Holt Other [facility] Other 09-19-2021 11:00-0500 Body mass index (BMI) [Ratio] 32.23 kg/m2 Harvey Stoddardtru Other [facility] Other 09-19-2021 11:00-0500 Body weight 96.16 kg Harvey Holt Other [facility] Other 09-19-2021 11:00-0500 Diastolic blood pressure 87 mm[Hg] Harvey Salcidocamilo Other [facility] Other 09-19-2021 11:00-0500 Systolic blood pressure 130 mm[Hg] Harvey Salcidojimtru Other [facility] Other Encounters Encounter Date Encounter Type Care Provider Facility Start: 12-22-2023 End: 12-23-2023 ambulatory Richard Lezama MD Facility:[facility] Start: 12-08-2023 End: 12-09-2023 ambulatory Richard Lezama MD Facility:[facility] Start: 10-15-2023 End: 10-15-2023 ambulatory CANDIS Daniely [facility] Start: 10-14-2023 End: 10-15-2023 ambulatory BRITT Coffman [facility] Start: 03-04-2023 End: 03-05-[address] DOCTOR GARCIA Facility: Start: 02-28-2023 End: 02-28-2023 ambulatory oJsué Evangelista Other [facility] Other Start: 02-28-2023 Telephone encounter Josué Evangelista [facility] Start: 02-20-2023 End: 02-20-2023 ambulatory Josué Evangelista Other [facility] Other Start: 02-20-2023 Postop follow up vis it related to original px Josué Evangelista [facility] Start: 01-22-2023 End: 01-22-2023 Admission to same day surgery center DO Britt Rumschlag Work Phone: [facility] [place] Start: 01-22-2023 End: 01-22-2023 ambulatory Josué Evangelista Facility:[facility] Start: 01-22-2023 End: 01-22-2023 ambulatory DO Britt Rumschlag Work Phone: [facility] Work Phone: Start: 01-13-2023 End: 01-13-2023 ambulatory Josué Evangelista Facility:[facility] Start: 01-13-2023 End: 01-13-2023 ambulatory DO Britt Rumschlag Work Phone: [facility] Work Phone: Start: 01-13-2023 End: 01-13-2023 Patient encounter procedure DO Britt Rumschlag Work Phone: [facility] Work Phone: Start: 12-06-2022 End: 12-06-2022 ambulatory Josué Evangelista Facility:[facility] Start: 12-06-2022 End: 12-06-2022 Patient encounter procedure DO Britt Rumschlag Work Phone: [facility] [place] Work Phone: Start: 08-10-2022 End: 08-10-2022 ambulatory [facility] Facility: Start: 07-08-2022 End: 07-08-2022 ambulatory Candida Jono Hinkle Facility:[facility] Start: 07-08-2022 End: 07-08-2022 Patient encounter procedure [facility] [address] Start: 06-21-2022 End: 06-21-2022 ambulatory Candida Hinkle Facility:[facility] Start: 06-21-2022 End: 06-21-2022 Patient encounter procedure [facility] [place] Start: 03-13-2022 End: 03-13-2022 ambulatory Harvey Holt Other [facility] Other Start: 03-13-2022 Office outpatient visit [address] [facility] Start: 01-14-2022 End: 01-14-2022 ambulatory Harvey Holt Other [facility] Other Start: 01-14-2022 Office outpatient visit [address] [facility] Start: 10-16-[address] [facility] Harvey Holt [facility] Start: 10-16-2021 End: 10-16-2021 ambulatory Harvey Holt Other [facility] Other Start: 09-19-2021 End: 09-19-2021 ambulatory Harvey Holt Other [facility] Other Start: 09-19-2021 Office outpatient ne w [address] [facility] Procedures Date Procedure Procedure Detail Performing Clinician Start: 01-22-2023 Decompression of uln ar nerve DO Britt Rumschlag Work Phone: Start: 12-06-2022 X-ray of cervical spine DO Britt Rumschlag Work Phone: Start: 07-08-2022 MRI of head Plan of Treatment Date Care Activity Detail Author Start: 01-22-2023 End: 01-22-2023 [facility] Start: 07-08-2022 MRI of head MR head/brain wo con [facility] Start: 07-08-2022 End: 07-08-2022 Patient encounter procedure Departed Clinical [facility] [address] Patient referral [facility] Work Phone: Immunizations Immunization Date Immunization Notes Care Provider Fa cility 03-07-2021 COVID-19 mRNA, Comir philip (Pfizer) [facility] 02-14-2021 COVID-19 mRNA, Comir philip (Pfizer) [facility] Payers Date Payer Category Payer Unknown 2022 Medicaid [id number] 2022 Self-pay [id number] 1965 Unknown [id number] 2.16.84 [id number] 1965 Unknown [id number] 2.16.84 0.1.041197.3.579.2.593 1965 Unknown [id number] 2.16.8 40.1.774299.3.579.2.173 1965 Unknown [id number] 2.16.8 40.1.928238.3.579.2.173 1965 Unknown [id number] 2.16.8 40.1.959638.3.579.2.173 1965 Unknown [id number] 2.16. 840.1.312839.3.579.2.196 1965 Unknown [id number] 2.16. 840.1.826016.3.579.2.196 1957 Unknown [id number] 2.1 6.840.1.137759.19 Unknown [id number] 2.1 6.840.1.293957.19 Unknown [id number] 2.16.8 40.1.378306.3.579.2.531 Unknown [id number] 2.16.8 40.1.141699.3.579.2.531 Unknown [id number] 2.16.8 40.1.713616.3.579.2.531 Unknown [id number] 2.16.8 40.1.554596.3.579.2.531 Unknown [id number] 2.16.8 40.1.769060.3.579.2.531 Social History Date Type Detail Facility Sex Assigned At [facility] Other Start: 10-16-2021 End: 01-22-2023 Tobacco smoking status NHIS Smoker (finding) [facility] Start: 1965 Sex Assigned At Male F [facility] Medical Equipment Procedure Code Equipment Code Equipment Origin al Text Equipment Identifier Dates BONE 7MM DUO FORTITUDE SERIES FDA Start: 10-16-2021 Spinal fixation plate, non-bioabsorbable ()[id number] FDA Start: 10-16-2021 Bone-screw inter nal spinal fixation system, non-sterile ()[id number] FDA Start: 10-16-2021 Bone-screw inter nal spinal fixation system, non-sterile ()[id number] FDA Start: 10-16-2021 BONE 7MM DUO FORTITUDE [...] 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 I will see him on an as-needed basis I think he has had a good outcome overall. [facility] Other 05-04-2022 Evaluation note* Encounter Date Diagnosis [...] Cervical spondylosis with myelopathy (ICD-10 - M47.12) [facility] Other 03-29-2022 [employer] Materials Neurology Paresthesia Paresthesia [...] or sweet foods. General instructions ? Take eyqk-gzy-blajhld and prescription medicines only as told by [...] provider. Document Revised: 11/22/2019 Document Reviewed: 11/05/2018 [employer] Patient Education ? 2020 [employer] Orthopedics Cubital Tunnel Syndrome Cubital tunnel [...] ? Playing contact sports, (more content not included)...[facility] 01-14-2022 Evaluation note* Encounter Date Diagnosis [...] will see him on an as-needed basis. [facility] Other 11-10-2021 Evaluation note* Encounter Date Diagnosis [...] They understand and would like to proceed [facility] Other 09-27-2021 Note [id number]05-23-2021 NoteEducation Materials Orthopedics Wrist Sprain, Adult [...] health care provider. General instructions ? Take tlpm-vtn-uihxonz and prescription medicines only as told by [...] provider. Document Revised: 10/09/2018 Document Reviewed: 05/15/2017 [employer] Patient Education ? 2019 [employer]. Wrist and Forearm Exercises Ask your health care provider which exercises are safe for you. Do exercises exactly as told by your health care provider and adjust them as directed. It is normal to feel mild stretching, pulling, tightness, or discomfort as you do these exercises. Stop right away if you feel sudden pain or your (more content not included)...[facility] Other evaluation noteNo assessment information available [facility] [employer] Work Phone: History general Narrative - Reported* Type Description Date Surgical History (R) carpal tunnel release Surgical History (R) Ulnar nerve release Surgical History tonsillectomy Hospitalization History See Above [facility] Other Hospital Discharge instructions Additional Instructions Use [...] Any unusual redness or drainage contact the [facility] Work Phone: Summary Purpose Family History [...] 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) Referral Organization [facility] Referring Provider First Name Harvey Referring Provider Last Name Yanet Referring Provider Specialty Neurosurger y Referred Organization [facility] Referred Provider Jonn Singer Referred Address [address] [place], [place],[address] Referred Provider Specialty Neurology Referral Priority Routine [...] section and content) DATE CREATED AUTHOR 02/16/2022 [facility] DATE CREATED AUTHOR AUTHOR'S ORGANIZ ATION 01/23/2023 [facility] DATE CREATED AUTHOR AUTHOR'S ORGANIZ ATION 03/08/2023 [facility] DATE CREATED AUTHOR AUTHOR'S ORGANIZ ATION 10/18/2023 [facility] DATE CREATED AUTHOR AUTHOR'S ORGANIZ ATION 12/28/2023 [facility] REASON FOR VISIT (unrecogniz ed section and content) Referred Dr. Magaly Medeiros ical Discacdf C3-43 months po ACDFEMG RESULTSright ulnar nerve release4 wk po/ Right ulnar nerve/ [id number] Care Teams (unrecognized sec tion and content) Team Status: Inactive Member Role Status Dates Candida Alexander PA-C Attending Provider Active Britt Penaloza DO Primary Care Provider Active Team Status: Inactive Member Role Status Dates NON STAFF Primary Care Provider Active Candida Alexander PA-C Attending Provider Active Team Status: Active Member Role Status Dates Britt Penaloza DO Primary Care Provider Active Team Status: Inactive Member Role Status Dates Britt DO Rex Primary Care Provider Active Josué Evangelista MD [...] BE BASED ON THE PRIMARY CLINICAL RECORDS. [employer] provides no warranty or guarantee of the accuracy or completeness of information in this document.
[2024-01-12 08:35] VITALS: BP 121/77; PULSE 82; RESP 16; TEMP 37; O2SAT 95
[2024-01-12 09:11] VITALS: RESP 20
[2024-01-12 09:40] VITALS: BP 121/59; BP 125/65; PULSE 69; O2SAT 97; O2SAT 98
[2024-01-12] MEDS: LIDOCAINE HCL 2% PF 100 MG/5 ML VIAL 4 ML INJ (09:40)
[2024-01-12] MEDS: TRIAMCINOLONE ACETONIDE 40 MG/ML VIAL 80 MG INJ (09:40)
[2024-01-12] MEDS: IOHEXOL 240 MG/ML - 10 ML VIAL INJ (09:40)
[2024-01-12] MEDS: BUPIVACAINE HCL 0.25% PF 25 MG/10 ML VIAL 4 ML INJ (09:40)
--- NOTE | 2024-01-12 09:42 | W.PM.PROCNOT ---
Date of procedure: 01/12/24 Pre-op diagnosis: Sacroiliitis, bilateral Post-op diagnosis: same as pre-op Procedure: Procedure: Bilateral sacroiliac joint injection Medications: Bupivacaine 0.25% 3cc, kenalog 40mg x2 After informed consent was obtained, the patient was brought to the medical procedure unit and placed in the prone position, when a timeout was completed verifying correct patient, procedure, site, positioning, implant, and/or special equipment.? The skin overlying the area was prepped and draped in standard sterile fashion using alcohol.? A 25-gauge needle was inserted towards the left sacroiliac joint under direct fluoroscopic imaging.? Needle tip was advanced until the joint was encountered.? We instilled a total of 3 mL of solution.? Postoperatively needles were removed.? The patient tolerated the procedure well without complication.? The patient reported reduction in pain symptoms postoperatively. Anesthesia: Local Surgeon: Richard Lezama Pathology: none sent Condition: stable Disposition: no change
== END 2024-01-12 09:46 | disposition home or self-care (01) ==
LOC: SURGOUT 08:04
PROVIDERS: PCP Family Medicine; Visit Provider Anesthesiology
DX: M46.1 Sacroiliitis, not elsewhere classified (principal)
CPT/HCPCS: 27096; Q9966

== ENCOUNTER 2024-01-22 09:56 | Outpatient (OUT) | payer MEDICAID, SELFPAY ==
--- NOTE | 2024-01-22 10:35 | PM.CN ---
Consult Note: HPI Data of Consult Patient: known to practice within the last 3 years Requesting Physician: Wilma Bhardwaj NP Primary Care Provider: Britt Goodman Consult Narrative Reason for consult: f/u Narrative: Homer Eastman a pleasant 58 year old male presents for evaluation and management of chronic low back pain. Patient reporting pain 6/10 in low back and sharp, increases with twisting standing walking listing stairs bending and activity. pain decreases with sitting lying. Patient finds mile benefit to current medication regimen. Patient recently underwent bilateral L5-S1 TFESI and bilateral nerve block of SIJ with mild relief per pt, LOS went from 66% TO 26%. Patient does note improvement in foot pain and ambulation, overall mild pain relief. cc:: CC: Wilma Bhardwaj NP Review of Systems ROS Status of ROS 10 or more systems reviewed and unremarkable except as noted in history and below Musculoskeletal Reports: back pain PFSH PFSH Medical History (Updated 01/22/24 @ 10:43 by Wilma Bhardwaj NP) Osteoarthritis ?M19.90 - Unspecified osteoarthritis, unspecified site (ICD-10) Bipolar depression ?F31.9 - Bipolar disorder, unspecified (ICD-10) Carpal tunnel syndrome ?G56.00 - Carpal tunnel syndrome, unspecified upper limb (ICD-10) Chronic GERD ?K21.9 - Gastro-esophageal reflux disease without esophagitis (ICD-10) Acid reflux ?K21.9 - Gastro-esophageal reflux disease without esophagitis (ICD-10) Sleep apnea ?G47.30 - Sleep apnea, unspecified (ICD-10) High cholesterol ?E78.00 - Pure hypercholesterolemia, unspecified (ICD-10) Surgical History H/O neck surgery ?Z98.890 - Other specified postprocedural states (ICD-10) H/O elbow surgery ?Z98.890 - Other specified postprocedural states (ICD-10) H/O carpal tunnel repair ?Z98.890 - Other specified postprocedural states (ICD-10) Hx of tonsillectomy ?Z90.89 - Acquired absence of other organs (ICD-10) H/O eye surgery ?Z98.890 - Other specified postprocedural states (ICD-10) Meds Home Medications and Allergies Home Medications Medication Instructions Recorded Confirmed Type epinephrine 0.3 mg/0.3 mL 0.3 mg IM DAILY PRN anaphylaxis 08/30/23 01/12/24 History injection, auto-injector latanoprost 0.005 % eye drops 1 drp ophthalmic (eye) .QHS 08/30/23 01/12/24 History omeprazole 40 mg capsule,delayed 40 mg PO QAM 08/30/23 01/12/24 History release rosuvastatin 5 mg tablet 5 mg PO DAILY 08/30/23 01/12/24 History cyclobenzaprine 5 mg tablet 5 mg PO DAILY 12/08/23 01/12/24 History gabapentin 100 mg capsule 200 mg PO DAILY 12/08/23 01/12/24 History Allergies Allergy/AdvReac Type Severity Reaction Status Date / Time bee venom protein (honey bee) Allergy Severe Verified 12/22/23 09:17 Penicillins Allergy Severe Verified 12/22/23 09:17 Exam Constitutional Documenting provider has reviewed patient's vital signs: yes Common normals: no apparent distress, oriented x3, healthy appearing, alert and well nourished General appearance: cooperative [facility] Common normals: normocephalic, hearing grossly normal bilaterally and moist oral mucous membranes Head and scalp: normocephalic Eye Common normals: PERRL Pupil: PERRL Neck & C-Spine Common normals: full ROM General: normal visual inspection Chest Common normals: inspection of chest normal Respiratory Common normals: normal respiratory effort, no retractions and no use of accessory muscles Back & Pelvis Lumbar spine/lower back: ROM limited, pain with ROM and straight leg raise negative bilaterally Sacroiliac joints: SI joints normal Other: sensation intact BLE strength 5/5 in BLE facet loading positive bilaterally pain over L4-S1 facets negative SIJ exam, negative LA FADIR thigh thrust and gaenslens Extremity Common normals: normal to inspection and full ROM Neuro Common normals: oriented x3, CN's II-XII intact bilaterally, moves all extremities, no focal motor deficits, no sensory deficits noted, deep tendon reflexes 2+ bilaterally and gait normal Sensorium/orientation: alert Motor exam: strength 5/5 throughout and no movement abnormalities noted Psych Common normals: mental status grossly normal, thought process normal, cooperative, affect normal, speech normal and activity/motor behavior normal Speech: normal speech Thought process: normal thought process Results Additional Findings Additional findings: If on a controlled substance or opioids, I have checked an [place] report on this patient and there are no aberrancies noted in the prescribing history.??If on a controlled substance or opioid a drug screen was completed and reviewed within the last year, and if there has not been a drug screen completed we ordered one today to monitor higher risk, state monitored pain medication use. As part of providing excellent, safe, comprehensive care, the following was completed at our patient's visit: 1. A medication reconciliation and review to ensure accurate knowledge of current/active medications, including asking our patients to inform us about any [id number] medications or herbal remedies/nutritional supplements/alternative remedies. 2. A review to specifically ensure our patients have had annual screening for screening for depression, screening for tobacco use, and screening for unhealthy alcohol use. For concerning screenings had a discussion with the patient, provided patient education, and recommended follow-up with primary care provider when appropriate. If patient noted with a risk of falling, they received education on strength, gait, and balance training to prevent future risk of falling. Assessment and Plan Assessment and Plan (1) Lumbar spondylosis: Assessment and Plan: The patient has had over 3 months of moderate to severe low back and SIJ pain with functional impairment and inadequate response to conservative care including NSAIDS (unless there are contraindication such as concurrent blood thinners), multiple oral or topical pain medications, and home exercise program/physical therapy.? Patient has completed >6 weeks of guided home exercise program and/or formal physical therapy program without relief of their symptoms.? I have reviewed the imaging of the lumbar spine and no red flags were identified.? ? We discussed the risks and benefits of the procedure with the patient, and we are NOT planning on using sedation as outlined in the guidelines from Medicare unless there is a documented reason that sedation would be strongly recommended.?? ?The procedure will be completed with fluoroscopic guidance.? (2) Sacroiliac joint dysfunction of both sides: (3) Lumbar stenosis with neurogenic claudication: (4) Myofascial pain: Plan although patient reports mild relief from injections he has a negative SIJ exam and improvement in radicular symptoms on physical exam, pain appears axial and facet mediated. LOS PREVIOUSLY 66% NOW 26%. significant functional improvement bilateral L4-5 L5-S1 facet medial branch block x2 working towards RFA continue medications continue HEP as tolerated f/u 1 week after injection
== END 2024-01-22 09:57 | disposition home or self-care (01) ==
LOC: PM 09:57
PROVIDERS: PCP Family Medicine; Visit Provider Nurse Practitioner
DX: M47.816 Spondylosis without myelopathy or radiculopathy, lumbar region (principal); M53.3 Sacrococcygeal disorders, not elsewhere classified; M48.062 Spinal stenosis, lumbar region with neurogenic claudication; M79.18 Myalgia, other site
CPT/HCPCS: G0463

== ENCOUNTER 2024-02-09 09:45 | Day surgery (SDC) | payer MEDICAID, SELFPAY ==
--- OUTSIDE RECORDS SUMMARY | 2024-02-09 09:55 | XMS_ITS | CCD ---
Author Organization [facility] Care Team Providers Care Ore Tester Name Role Phone Harvey Holt Unavailable NON STAFF Primary Care Provider UnavailDAPHNEY Sotelo Attending Provider Rummassiellayamila, DO Britt Primary Care Provider Rex, DO Britt Primary Care Provider MD Josué Evangelista Attending Provider [phone] Rumcoco, DO Britt Primary Care Provider MD [...] Britt Primary Care Unavailable Josué Evangelista Unavailable [facility] Primary Care Unava ilable MITCHELL TRAYLOR Admitting Unavailable MERCEDES ENRIQUEZ Consulting Unavailable MITCHELL TRAYLOR Attending Unavailable JONN HARGROVE Consulting Unavailable MITCHELL TRAYLOR Consulting Unavailable MISJono, DR GARCIAS Attending Unavailable MISC, DR GARCIAS Consulting Unavailable [facility] Primary Care Unava ilable RADHA, DR GARCIAS Admitting Unavailable RUMSCHLAG, BRITT Primary Care Unavailable YVONNE CAMARENA Referring Unavailable YVONNE CAMARENA Referring Unavailable RUMSCHLAG, BRITT Primary Care Unavailable CANDIS RENTERIA Admitting Unavailable CANDIS RENTERIA Attending Unavailable RUSTBRITT Brian Primary Care Unavailable Lise RAWLS, Richard Guaman Attending Unavailable Lise RAWLS, Richard Guaman Attending Unavailable Lise RAWLS, Richard Guaman Attending Unavailable Allergies Allergy Classification Reported Allergen(s) Allergy Type Date of Onset Reaction(s) Facility (7 sources) penicillAMINE Drug Allergy [facility] Other (7 sources) Bee Sting Drug allergy [facility] Other (5 sources) Penicillins; Translations: [Penicillins] Allergy to substance 20 21 Unknown Reaction [place] (5 sources) venom-honey bee; Translations: [venom-honey bee] Allergy to substance 20 21 Swelling [place] (1 source) bee venom Drug allergy (disorder) [facility] (1 source) Penicillin Drug Allergy [facility] Medications Current Medications Medication Drug Class(es) [...] Exam NEGATIVE Report Status FINAL 10/16/2023 Normal [facility] Comment on above: Performed By: #### F HPY #### [place] [address] [place], [place] [id number] Customer Service Receptionist: Guy Ramey MD [facility] [address] [place] [address] Customer Service Receptionist: Justus Darby MD Surgical Pathology Reporton 10-15-2023 Surgical Pathology Report (NOTE) Path Number: [id number] -- Diagnosis -- A. GE junction, endoscopic [...] GASTRIC ANTRUM BIOPSY Gross Description A. ROSA TREVIÑOLUIS GE JUNCTION BIOPSY Received in formalin are [...] for each. Microscopic examination performed. Processing Lab: [address] [id number] Interpretation Performed at [address] [address] SURGICAL PATHOLOGY CONSULTATION Patient Name: ROSA EASTMAN [facility] Rec: [id number] [facility] ANATOMIC PATHOLOGY [address] [place] [address]. [place], [place] [address] Normal [facility] CBC with Diffon 10-14-2023 Abs. Basophil 0.17 k/uL Normal 0.00-0.20 [facility] Comment on above: Performed By: #### C DP #### [facility] [address] [place] [address] Dr. [place], [place] [address] Customer Service Receptionist: Justus Darby MD Abs.Imm.Granulocyte 0.04 k/uL Normal 0.00-0.30 [facility] Comment on above: Performed By: #### C DP #### [address] [address] Customer Service Receptionist: Justus Darby MD Abs.Neutrophil (Seg) 5.08 k/uL Normal 1.50-8.10 [facility] Comment on above: Performed By: #### C DP #### [address] [place] [phone] Customer Service Receptionist: Justus Darby MD Basophils/100 WBC (Bld) 2 % Normal 0-[address] [facility] Comment on above: Performed By: #### C DP #### [address] [place] [address] Customer Service Receptionist: Justus Darby MD Eosinophils (Bld) [#/Vol] 0.43 10*3/uL Normal 0.00-0.44 [facility] Comment on above: Performed By: #### C DP #### [address] [place] [address] Customer Service Receptionist: Justus Darby MD Eosinophils/100 WBC (Bld) 4 % Normal 1-4 [facility] Comment on above: Performed By: #### C DP #### [address] Garcia, [facility] Customer Service Receptionist: Justus Darby MD Erythrocyte distribution width (RBC) [Ratio] 12.3 % Normal 11.8-14.4 [facility] Comment on above: Performed By: #### C DP #### [address] [place] [phone] Customer Service Receptionist: Justus Darby MD Hematocrit (Bld) [Volume fraction] 44.4 % Normal 40.7-50.3 [facility] Comment on above: Performed By: #### C DP #### [facility] [address] [place], [facility] Customer Service Receptionist: Justus Darby MD Hemoglobin (Bld) [Mass/Vol] 14.6 g/dL Normal 13.0-17.0 [facility] Comment on above: Performed By: #### C DP #### [facility] [address] [place], [facility] Customer Service Receptionist: Justus Darby MD Immature granulocytes/100 WBC (Bld) 0 % Normal 0 [facility] Comment on above: Performed By: #### C DP #### [address] [place], [place] [address] Customer Service Receptionist: Justus Darby MD Lymphocytes (Bld) [#/Vol] 3.86 10*3/uL High 1.10-3.70 [facility] Comment on above: Performed By: #### C DP #### [facility] [address] [place] [address] Dr. Garcia, [place] [address] Customer Service Receptionist: Justus Darby MD Lymphocytes/100 WBC (Bld) 36 % Normal 24-43 [facility] Comment on above: Performed By: #### C DP #### [facility] [address] [place] [address] Dr. Garcia, [facility] Customer Service Receptionist: Justus Darby MD MCH (RBC) [Entitic mass] 30.9 pg Normal 25.2-33.5 [facility] Comment on above: Performed By: #### C DP #### [facility] [address] [place] [address] Dr. Garcia, [facility] Customer Service Receptionist: Justus Darby MD MCHC (RBC) [Mass/Vol] 32.9 g/dL Normal 28.4-34.8 [place] Comment on above: Performed By: #### C DP #### [facility] [address] [place], [place] [phone] Customer Service Receptionist: Justus Darby MD MCV (RBC) [Entitic vol] 93.9 fL Normal 82.6-102.9 M [facility] Comment on above: Performed By: #### C DP #### [facility] [address] [place] [phone] Customer Service Receptionist: Justus Darby MD Monocytes (Bld) [#/Vol] 1.05 10*3/uL Normal 0.10-1.20 [facility] Comment on above: Performed By: #### C DP #### [address] [place], [place] [phone] Customer Service Receptionist: Justus Darby MD Monocytes/100 WBC (Bld) 10 % Normal 3-12 M [facility] Comment on above: Performed By: #### C DP #### [address] Garcia, [place] [phone] Customer Service Receptionist: Justus Darby MD Neutrophil (Seg) 48 % Normal 36-65 [facility] Comment on above: Performed By: #### C DP #### [address] Garcia [facility] Customer Service Receptionist: Justus Darby MD NRBC Automated 0.0 per 100 WBC Normal 0.0 [facility] Comment on above: Performed By: #### C DP #### [facility] [address] [place] [address] Dr. [place], [place] [phone] Customer Service Receptionist: Justus Darby MD Platelet mean volume (Bld) [Entitic vol] 9.6 fL Normal 8.1-13.5 [facility] Comment on above: Performed By: #### C DP #### [address] Garcia [place] [phone] Customer Service Receptionist: Justus Darby MD Platelets (Bld) [#/Vol] 297 10*3/uL Normal 138-453 [facility] Comment on above: Performed By: #### C DP #### [facility] [address] [place], [place] [phone] Customer Service Receptionist: Justus Darby MD RBC (Bld) [#/Vol] 4.73 10*6/uL Normal 4.21-5.77 [facility] Comment on above: Performed By: #### C DP #### [facility] [address] [place] [phone] Customer Service Receptionist: Justus Darby MD WBC (Bld) [#/Vol] 10.6 10*3/uL Normal 3.5-11.3 [facility] Comment on above: Performed By: #### C DP #### [facility] [address] [place], [place] 1001083 Customer Service Receptionist: Justus Darby MD Basic Metabolic Panelon 03-0 Anion gap [Moles/Vol] 9.8 mmol/L Normal 6.0-15.0 [facility] [place] Comment on above: Performed By: #### C BC, BMP #### [facility] [address] Calcium [Mass/Vol] 9.1 mg/dL Normal 8.2-10.2 [facility] Comment on above: Result Comment: PERF ORMED BY: [address] [place] [address] PATHOLOGIST [employer] PROCESSOR GENEVIEVE CANNON M.D. Performed By: #### C BC, BMP #### [facility] [address] [place] [address] [place] Chloride [Moles/Vol] 104 mmol/L Normal 95-114 [facility] Comment on above: Performed By: #### C BC, BMP #### [facility] [address] [place] [address] [place] CO2 [Moles/Vol] 25.9 mmol/L Normal 22.0-30.0 [facility] Comment on above: Performed By: #### C BC, BMP #### [facility] [address] Creatinine [Mass/Vol] 0.98 mg/dL Normal 0.64-1.27 [facility] [place] Comment on above: Performed By: #### C BC, BMP #### [facility] [address] Estimated GFR ( Camila > 60 Normal [place] Comment on above: Result Comment: GFR estimated reference range: According to KDOQI guidelines, <60 ml/min/1.73m2 is sufficient to diagnose a patient with chronic kidney disease. Performed By: #### C BC, BMP #### [facility] [address] Estimated GFR (Non- Am > 60 Normal [place] Comment on above: Performed By: #### C BC, BMP #### [address] Glucose [Mass/Vol] 82 mg/dL Normal 70-100 [facility] Comment on above: Result Comment: [place] om Glucose Reference Range is dependent on time and content of last meal. Glucose of more than 200 mg/dL in a nonstressed, ambulatory subject supports the diagnosis of Diabetes Mellitus. ADA recommended reference range Performed By: #### C BC, BMP #### [facility] [address] [place] [address] [place] Potassium [Moles/Vol] 3.7 mmol/L Normal 3.5-5.1 [facility] [place] Comment on above: Performed By: #### C BC, BMP #### [facility] [address] [place] [id number] [place] Sodium [Moles/Vol] 136 mmol/L Normal 136-146 [facility] Comment on above: Performed By: #### C BC, BMP #### [facility] [address] [place] [address] [place] Urea nitrogen [Mass/Vol] 11 mg/dL Normal 9-23 [place] Comment on above: Performed By: #### C BC, BMP #### [facility] [address] [place] [address] [place] Basophils Auto (Bld) [#/Vol] Ordered By: Josué Evangelista on 01-13-2023 Basophils (Bld) [#/Vol] 0.1 10*3/uL 0.0-0.2 [place] Basophils/100 WBC Auto (Bld) Ordered By: Josué Evangelista on 01-13-2023 Basophils/100 WBC (Bld) 1.2 % . [facility] Calcium [Mass/volume] in Ser um or PlasmaOrdered By: Josué Evangelista on 01-13-2023 Calcium [Mass/Vol] 9.1 mg/dL 8.2-10.2 [facility] Carbon dioxide, total [Moles /volume] in Serum or PlasmaOrdered By: Josué Evangelista on 01-13-2023 CO2 [Moles/Vol] 25.9 mmol/L 22.0-30.0 [facility] Chloride [Moles/volume] in S lai or PlasmaOrdered By: Josué Evangelista on 01-13-2023 Chloride [Moles/Vol] 104 mmol/L 95-114 [facility] Complete Blood Count Auto Di ffon 01-13-2023 Basophils (Bld) [#/Vol] 0.1 10*3/uL Normal 0.0-0.2 [place] Comment on above: Result Comment: PERF ORMED BY: [place] [address] PATHOLOGIST INSTANT POTAT[employer] PROCESSOR GENEVIEVE CANNON M.D. Performed By: #### C MICHELLE, BMP #### [facility] [address] [place] [address] [place] Basophils/100 WBC (Bld) 1.2 % Normal . [facility] Comment on above: Performed By: #### C MICHELLE, BMP #### [facility] [address] [place] [address] [place] Eosinophils (Bld) [#/Vol] 0.5 10*3/uL High 0.0-0.45 [place] Comment on above: Performed By: #### C MICHELLE, BMP #### [address] Eosinophils/100 WBC (Bld) 4.7 % Normal . [place] Comment on above: Performed By: #### C BC, BMP #### [address] Erythrocyte distribution width (RBC) [Ratio] 12.6 % Normal 12.0-14.8 [place] Comment on above: Performed By: #### C BC, BMP #### [address] Hematocrit (Bld) [Volume fraction] 41.2 % Normal 38.8-50.0 [place] Comment on above: Performed By: #### C BC, BMP #### [address] Hemoglobin (Bld) [Mass/Vol] 14.1 g/dL Normal 13.0-17.0 [place] Comment on above: Performed By: #### C BC, BMP #### [address] Lymphocytes (Bld) [#/Vol] 3.4 10*3/uL Normal 1.00-4.8 [place] Comment on above: Performed By: #### C BC, BMP #### [address] Lymphocytes/100 WBC (Bld) 33.3 % Normal . [place] Comment on above: Performed By: #### C BC, BMP #### [address] MCH (RBC) [Entitic mass] 31.7 pg Normal 27.5-35.2 [place] Comment on above: Performed By: #### C BC, BMP #### [address] MCV (RBC) [Entitic vol] 92.3 fL Normal 83.5-101 [facility] Comment on above: Performed By: #### C BC, BMP #### [address] Mean Corpuscular HGB Conc 34.4 g/dL Normal 32.5-35.6 [place] Comment on above: Performed By: #### C BC, BMP #### [address] Monocytes (Bld) [#/Vol] 1.0 10*3/uL High 0.0-0.8 [place] Comment on above: Performed By: #### C BC, BMP #### [address] Monocytes/100 WBC (Bld) 10.1 % Normal . [facility] Comment on above: Performed By: #### C BC, BMP #### [address] Neutrophils (Bld) [#/Vol] 5.2 10*3/uL Normal 1.8-7.7 [place] Comment on above: Performed By: #### C BC, BMP #### [address] Neutrophils/100 WBC (Bld) 50.7 % Normal . [place] Comment on above: Performed By: #### C BC, BMP #### [address] NRBC% 0.1 /100{WBC} Normal 0-0.5 [place] Comment on above: Performed By: #### C BC, BMP #### [address] Platelet mean volume (Bld) [Entitic vol] 7.8 fL Normal 6.6-10.1 [place] Comment on above: Performed By: #### C BC, BMP #### [address] Platelets (Bld) [#/Vol] 268 10*3/uL Normal 150-450 [place] Comment on above: Performed By: #### C BC, BMP #### [place] [address] [place] RBC (Bld) [#/Vol] 4.46 10*6/uL Normal 3.90-5.60 [facility] Comment on above: Performed By: #### C MICHELLE, BMP #### [facility] [address] WBC (Bld) [#/Vol] 10.3 10*3/uL Normal 4.1-10.5 [facility] Comment on above: Performed By: #### C MICHELLE, BMP #### [facility] [address] [place] [address] Creatinine and Glomerular fi ltration rate.predicted panel (S/P/Bld)Ordered By: Josué Evangelista on 01-13-2023 Creatinine [Mass/Vol] 0.98 mg/dL 0.64-1.27 [facility] [place] ECG 12 lead ECGon 01-13-2023 ECG 12 lead ECG [facility] [place] [address] [place] [address] Electrocardiograph Report Signed Patient: Rosa Eastman MR#: [id number] : 1965 Acct:[id number] Age/Sex: 57 / M ADM Date: 01/13/23 Loc: Room: Type: [facility] Attending Dr: Josué Evangelista MD Ordering Provider: [...] Marylin Eisenberg MD 0 01/14/23 1534 Normal [place] Eosinophils Auto (Bld) [#/Vo l]Ordered By: Josué Evangelista on 01-13-2023 Eosinophils (Bld) [#/Vol] 0.5 10*3/uL 0.0-0.45 [place] Eosinophils/100 WBC Auto (Bl d)Ordered By: Josué Evangelista on 01-13-2023 Eosinophils/100 WBC (Bld) 4.7 % . [place] Erythrocyte distribution wid th Auto (RBC) [Ratio]Ordered By: Josué Evangelista on 01-13-2023 Erythrocyte distribution width (RBC) [Ratio] 12.6 % 12.0-14.8 [place] Estimated glomerular filtrat ion rate (GFR) non- AmericanOrdered By: Josué Evangelista on 01-13-2023 GFR/1.73 sq M.predicted among non-blacks MDRD (S/P/Bld) [Vol rate/Area] > 60 mL/Min [place] Glucose [Mass/volume] in Ser um or PlasmaOrdered By: Josué Evangelista on 01-13-2023 Glucose [Mass/Vol] 82 mg/dL 70-100 [facility] Comment on above: ADA recommended refe rence rangeRandom Glucose Reference Range is dependent on time and content of last meal. Glucose of more than 200 mg/dL in a nonstressed, ambulatory subject supports the diagnosis of Diabetes Mellitus. Hematocrit Auto (Bld) [Volum e fraction]Ordered By: Josué Evangelista on 01-13-2023 Hematocrit (Bld) [Volume fraction] 41.2 % 38.8-50.0 [place] Hemoglobin [Mass/volume] in BloodOrdered By: Josué Evangelista on 01-13-2023 Hemoglobin (Bld) [Mass/Vol] 14.1 g/dL 13.0-17.0 [place] Leukocytes [#/volume] correc lesly for nucleated erythrocytes in Blood by Automated counOrdered By: Josué Evangelista on 01-13-2023 WBC corrected for nucl RBC Auto (Bld) [#/Vol] 10.3 10*3/uL 4.1-10.5 [place] Lymphocytes Auto (Bld) [#/Vo l]Ordered By: Josué Evangelista on 01-13-2023 Lymphocytes (Bld) [#/Vol] 3.4 10*3/uL 1.00-4.8 [place] Lymphocytes/100 WBC Auto (Bl d)Ordered By: Josué Evangelista on 01-13-2023 Lymphocytes/100 WBC (Bld) 33.3 % . [place] MCH Auto (RBC) [Entitic mass ]Ordered By: Josué Evangelista on 01-13-2023 MCH (RBC) [Entitic mass] 31.7 pg 27.5-35.2 [place] MCHC Auto (RBC) [Mass/Vol]Or dered By: Josué Evangelista on 01-13-2023 MCHC (RBC) [Mass/Vol] 34.4 g/dL 32.5-35.6 [facility] MCV Auto (RBC) [Entitic vol] Ordered By: Josué Evangelista on 01-13-2023 MCV (RBC) [Entitic vol] 92.3 fL 83.5-101 [facility] Monocytes Auto (Bld) [#/Vol] Ordered By: Josué Evangelista on 01-13-2023 Monocytes (Bld) [#/Vol] 1.0 10*3/uL 0.0-0.8 [place] Monocytes/100 WBC Auto (Bld) Ordered By: Josué Evangelista on 01-13-2023 Monocytes/100 WBC (Bld) 10.1 % . [facility] Neutrophils Auto (Bld) [#/Vo l]Ordered By: Josué Evangelista on 01-13-2023 Neutrophils (Bld) [#/Vol] 5.2 10*3/uL 1.8-7.7 [place] Neutrophils/100 WBC Auto (Bl d)Ordered By: Josué Evangelista on 01-13-2023 Neutrophils/100 WBC (Bld) 50.7 % . [place] No Panel InformationOrdered By: Josué Evangelista on 01-13-2023 Estimated GFR () > 60 mL/Min [place] Comment on above: GFR estimated refere nce range: According to KDOQI guidelines, <60 ml/min/1.73m2 is sufficient to diagnose a patient with chronic kidney disease. Pharmacy Creatinine Clearance (Chem N/A [place] Nucleated erythrocytes [Pres ence] in Blood by Automated countOrdered By: Josué Evangelista on 01-13-2023 Nucleated RBC Auto Ql (Bld) 0.1 /100{WBC} 0-0.5 [place] Platelet mean volume Auto (B ld) [Entitic vol]Ordered By: Josué Evangelista on 01-13-2023 Platelet mean volume (Bld) [Entitic vol] 7.8 fL 6.6-10.1 [place] Platelets Auto (Bld) [#/Vol] Ordered By: Josué Evangelista on 01-13-2023 Platelets (Bld) [#/Vol] 268 10*3/uL 150-450 [place] Potassium [Moles/volume] in Serum or PlasmaOrdered By: Josué Evangelista on 01-13-2023 Potassium [Moles/Vol] 3.7 mmol/L 3.5-5.1 [facility] [place] RBC Auto (Bld) [#/Vol]Ordere d By: Josué Evangelista on 01-13-2023 RBC (Bld) [#/Vol] 4.46 10*6/uL 3.90-5.60 [facility] Serum or plasma anion gap de terminationOrdered By: Josué Evangelista on 01-13-2023 Anion gap [Moles/Vol] 9.8 mmol/L 6.0-15.0 [facility] [place] Sodium [Moles/volume] in Ser um or PlasmaOrdered By: Josué Evangelista on 01-13-2023 Sodium [Moles/Vol] 136 mmol/L 136-146 [facility] Urea nitrogen [Mass/volume] in Serum or PlasmaOrdered By: Josué Evangelista on 01-13-2023 Urea nitrogen [Mass/Vol] 11 mg/dL 9-23 [place] WBC Auto (Bld) [#/Vol]Ordere d By: Josué Evangelista on 01-13-2023 WBC (Bld) [#/Vol] 10.3 10*3/uL 4.1-10.5 [facility] XR cerv spine AP/LAT/FLX/EXT on 12-06-2022 XR cerv spine AP/LAT/FLX/EXT [address] [address] XRay Report Signed Patient: Rosa Eastman MR#: [id number] : 1965 Acct:[id number] Age/Sex: 57 / M ADM Date: 12/06/22 Loc: XD Room: Type: [facility] Attending Dr: Josué Eavngelista MD Copies to: Josué Evangelista MD Ordering [...] Erasmo Maddox M.D.12/06/2022 2:26 PM Dictation Location: [place] [address] Transcribed By: [facility] 12/06/221425 Dictated By: Erasmo Maddox DO 12/06/221421 Signed By: 12/06/22 142 [facility] CBC AUTO DIFFon 08-10-2022 BASO # 0.2 103/ul Critically high 0.0-0.1 [facility] Comment on above: Performed By: #### C BC #### [facility] [address] [place] [address] [address] Mars Sanders Basophils/100 WBC (Bld) 2.0 % Normal 0.2-2.0 [facility] Comment on above: Performed By: #### C BC #### [facility] [address] [place] [address] [address] Mars Sanders EO # 0.5 103/ul Normal 0.0-0.7 [facility] Comment on above: Performed By: #### C BC #### [facility] [address] [place] [address] Dr. Mars Sanders Eosinophils/100 WBC (Bld) 5.7 % Normal 0.9-7.0 [facility] Comment on above: Performed By: #### C BC #### [facility] [address] [place] [address] Dr. Mars Sanders Erythrocyte distribution width (RBC) [Ratio] 12.4 % Normal 11.0-15.0 [facility] Comment on above: Performed By: #### C BC #### [facility] [address] [place] [address] Dr. Mars Sanders Hematocrit (Bld) [Volume fraction] 41.8 % Critically low 42.0-54.0 [facility] Comment on above: Performed By: #### C BC #### [facility] [address] [place] [address] Dr. Mars Sanders Hemoglobin (Bld) [Mass/Vol] 14.0 g/dL Normal 14.0-18.0 [facility] Comment on above: Performed By: #### C BC #### [facility] [address] [place] [address] Dr. Mars Sanders IG # 0.02 10e3/ul Normal 0.00-0.03 [facility] Comment on above: Performed By: #### C BC #### [facility] [address] [place] [address] Dr. Mars Sanders IG % 0.2 % Normal 0.0-0.5 [facility] Comment on above: Performed By: #### C BC #### [facility] [address] [place] [address] Dr. Mars Sanders LYMPH # 3.1 103/ul Normal 1.2-3.8 [facility] Comment on above: Performed By: #### C BC #### [facility] [address] [place] [address] Dr. Mars Sanders Lymphocytes/100 WBC (Bld) 36.3 % Normal 20.5-60.0 [facility] Comment on above: Performed By: #### C BC #### [facility] [address] [place] [address] Dr. Mars Sanders MANUAL DIFF REQ NO Normal [facility] Comment on above: Performed By: #### C BC #### [facility] [address] [place] [address] Dr. Mars Sanders MCH (RBC) [Entitic mass] 31.4 pg Normal 25.9-34.0 [facility] Comment on above: Performed By: #### C BC #### [facility] [address] [place] [address] Dr. Mars Sanders MCHC (RBC) [Mass/Vol] 33.5 g/dL Normal 29.9-35.2 [facility] Comment on above: Performed By: #### C BC #### [facility] [address] [place] [address] Dr. Mars Sanders MCV (RBC) [Entitic vol] 93.7 fL Normal 80.0-94.0 [facility] Comment on above: Performed By: #### C BC #### [facility] [address] [place] [address] Dr. Mars Sanders MONO # 0.8 103/ul Normal 0.3-0.8 [facility] Comment on above: Performed By: #### C BC #### [facility] [address] [place] [address] Dr. Mars Sanders Monocytes/100 WBC (Bld) 10.0 % Normal 1.7-12.0 [facility] Comment on above: Performed By: #### C BC #### [facility] [address] [place] [address] Dr. Mars Sanders NEUT # 3.9 103/ul Normal 1.4-6.5 [facility] Comment on above: Performed By: #### C BC #### [facility] [address] [place] [address] Dr. Mars Sanders Neutrophils/100 WBC (Bld) 45.8 % Normal 43.0-75.0 [facility] Comment on above: Performed By: #### C BC #### [facility] [address] [place] [address] Dr. Mars Sanders Platelet mean volume (Bld) [Entitic vol] 9.4 fL Critically low 9.5-13.5 [facility] Comment on above: Performed By: #### C BC #### [facility] [address] [place] [address] Dr. Mars Sanders PLT 251 103/ul Normal 150-450 [facility] Comment on above: Performed By: #### C BC #### [facility] [address] [place] [address] Dr. Mars Sanders RBC 4.46 106/ul Critically low 4.70-6.10 [facility] Comment on above: Performed By: #### C BC #### [facility] [address] [place] [address] Dr. Mars Sanders WBC 8.4 103/ul Normal 4.0-11.0 [facility] Comment on above: Performed By: #### C BC #### [facility] [address] [place] [address] Dr. Mars Sanders D-DIMERon 08-10-2022 D-DIMER 0.35 mg/L FEU Normal <=0.59 [facility] Comment on above: Performed By: #### D DIM #### [facility] [address] [place] [address] Dr. Mars Sanders D-DIMER COMMENTS SEE BELOW Normal [facility] Comment on above: Result Comment: Incr [...] hospitalization. Performed By: #### D DIM #### [facility] [address] [address] [address] Mars Sanders PROF 14(COMP METB)on 022 Albumin [Mass/Vol] 3.8 g/dL Normal 3.4-5.0 [facility] Comment on above: Performed By: #### H STROPN, CMP #### [facility] [address] [address] [address] Mars Sanders Albumin/Globulin [Mass ratio] 1.0 {ratio} Normal [facility] Comment on above: Performed By: #### H STROPN, CMP #### [facility] [address] [address] [address] Mars Sanders ALP [Catalytic activity/Vol] 127 U/L Critically high 46-116 [facility] Comment on above: Performed By: #### H ALESSIO, CMP #### [facility] [address] [place] [address] Dr. Mars Sanders ALT [Catalytic activity/Vol] 30 U/L Normal 16-63 [facility] Comment on above: Performed By: #### H MIKEYPN, CMP #### [facility] [address] [address] [address] Mars Sanders Anion gap [Moles/Vol] 13.5 mmol/L Normal [facility] Comment on above: Performed By: #### H ALESSIO, CMP #### [facility] [address] [address] [address] Mars Sanders AST [Catalytic activity/Vol] 20 U/L Normal 15-37 [facility] Comment on above: Performed By: #### H STROPN, CMP #### [facility] [address] [address] [address] Mars Sanders Bilirubin [Mass/Vol] 0.3 mg/dL Normal 0.2-1.0 [facility] Comment on above: Performed By: #### H STROPN, CMP #### [facility] [address] [address] [address] Mars Sanders Calcium [Mass/Vol] 8.7 mg/dL Normal 8.5-10.1 [facility] Comment on above: Performed By: #### H STROPN, CMP #### [facility] [address] [address] [address] Mars Sanders Chloride [Moles/Vol] 105 mmol/L Normal 98-107 [facility] Comment on above: Performed By: #### H STROPN, CMP #### [facility] [address] [address] [address] Mars Sanders CO2 [Moles/Vol] 25.4 mmol/L Normal 21.0-32.0 [facility] Comment on above: Performed By: #### H STROPN, CMP #### [facility] [address] [address] [address] Mars Sanders Creatinine [Mass/Vol] 0.98 mg/dL Normal 0.70-1.30 [facility] Comment on above: Performed By: #### H STROPN, CMP #### [facility] [address] [address] [address] Mars Sanders EGFR-AF NICARAGUAN >60 Normal >=60 [facility] Comment on above: Performed By: #### H STROPN, CMP #### [facility] [address] [address] [address] Mars Sanders EGFR-NON AF NICARAGUAN >60 Normal >=60 [facility] Comment on above: Performed By: #### H STROPN, CMP #### [facility] [address] [address] [address] Mars Sanders Globulin (S) [Mass/Vol] 3.9 g/dL Normal [facility] Comment on above: Performed By: #### H STROPN, CMP #### [facility] [address] [address] [address] Mars Sanders Glucose [Mass/Vol] 102 mg/dL Normal 74-106 [facility] Comment on above: Performed By: #### H STROPN, CMP #### [facility] [address] [address] [address] Mars Sanders Potassium [Moles/Vol] 3.9 mmol/L Normal 3.5-5.1 [facility] Comment on above: Performed By: #### H STROPN, CMP #### [facility] [address] [address] [address] Mars Sanders Protein [Mass/Vol] 7.7 g/dL Normal 6.4-8.2 [facility] Comment on above: Performed By: #### H STROPN, CMP #### [facility] [address] [place] [address] Dr. Mars Sanders Sodium [Moles/Vol] 140 mmol/L Normal 136-145 [facility] Comment on above: Performed By: #### H STROPN, CMP #### [facility] [address] [place] [address] Dr. Mars Sanders Urea nitrogen [Mass/Vol] 14.0 mg/dL Normal 7.0-18.0 [facility] Comment on above: Performed By: #### H STROPN, CMP #### [facility] [address] [place] [address] Dr. Mars Sanders Urea nitrogen/Creatinine [Mass ratio] 14.3 mg/mg Normal [facility] Comment on above: Performed By: #### H STROPN, CMP #### [facility] [address] [place] [address] Dr. Mars Sanders PROTIMEon 08-10-2022 INR Coag (PPP) [Relative time] 0.95 {INR} Normal [facility] Comment on above: Performed By: #### P T, PTT #### [facility] [address] [place] [address] Dr. Mars Sanders INR GUIDELINES SEE BELOW Normal [facility] Comment on above: Result Comment: EDU RED INR: 2.0 - 3.0 CONDITIONS NOT LISTED BELOW 2.5 - 3.5 FOR PROSTHETIC HEART VALVE REPLACEMENT 2.5 - 3.5 RECURRENT THROMBOSIS Performed By: #### P T, PTT #### [facility] [address] [place] [address] Dr. Mars Sanders PT Coag (PPP) [Time] 10.3 s Normal 9.0-11.6 [facility] Comment on above: Performed By: #### P T, PTT #### [facility] [address] [address] [address] Mars Sanders PTTon 08-10-2022 aPTT Coag (Bld) [Time] 29.9 s Normal 22.3-36.2 Th e [facility] Comment on above: Performed By: #### P T, PTT #### [facility] [address] [address] [address] Mars Sanders TROPONIN, HIGH SENSITIVITYon 08-10-2022 HSTROP 12.3 pg/mL Normal 4.0-76.1 [facility] Comment on above: Result Comment: CUT- OFF POINTS HAVE BEEN ESTABLISHED BASED ON THE FOURTH UNIVERSAL DEFINITIONS OF MYOCARDIAL INFARCTION. THE UPPER REFERENCE LIMIT (URL) OF TROPONIN, DEFINED THE 99TH PERCENTILE OF cTnI DISTRIBUTION IN A REFERENCE POPULATION, HAS BEEN CONFIRMED THE DECISION THRESHOLD FOR NE DIAGNOSIS. Performed By: #### H STROPN, CMP #### [facility] [address] [address] [address] Mars Sanders XR CHEST 1 Von [...] by: JONN HARGROVE Date: 2022-08-10 18:59 Normal [facility] MR head/brain wo conon 07-08 MR head/brain wo [place] [place] [address] MRI Report Signed Patient: Rosa Eastman MR#: [id number] : 1965 Acct:[id number] Age/Sex: 57 / M ADM Date: 07/08/22 [facility] Type[facility] Attending Dr: Candida Alexander PA-C Copies to: [...] Rob Funez M.D.07/08/2022 1:37 PM Dictation Location: [place] [address] Transcribed By: [facility] 07/08/22 1337 Dictated By: Rob Funez II, MD 07/08/22 1334 Signed By: 07/08/22 1337 Normal [place] Folate [Mass/volume] in Seru m or PlasmaOrdered By: Candida Alexander on 06-21-2022 Folate [Mass/Vol] 7.4 ng/mL >5.9 [facility] Comment on above: Folate reference ran ge: >5.9 ng/ml The WHO technical consultation on folate and vitamin b12 deficiencies has determined that folate concentrations less than 4 ng/ml are considered deficient. Free T4 (Free Thyroxine)on 0 06-21-2022 Free T4 [Mass/Vol] 0.77 ng/dL Normal 0.61-1.12 [facility] Comment on above: Performed By: #### V [id number], T4F, TSH3 #### [address] #### METH #### [facility] , Laboratory - Chemistry and C hemistry - challengeOrdered By: Candida Alexander on 06-21-2022 Cobalamin (Vitamin B12) [Mass/Vol] 369 pg/mL 180-914 [place] Methylmalonic Acidon 022 Methylmalonic Acid 241 Normal 0-378 [facility] Comment on above: Result Comment: This test was developed and its performance characteristics determined by [facility]. It has not been cleared or approved by the Food and Drug Administration. Performed at: [address] [id number] Customer Service Receptionist: Millicent Calderon MD, Phone: [phone] PERFORMED BY: [place] [address] PATHOLOGIST INSTANT POTATO PROCESSOR GENEVIEVE CANNON M.D. Performed By: #### V [id number], T4F, TSH3 #### [address] #### METH #### [facility] , Serum or plasma methylmalona te measurement (moles/volume)Ordered By: Candida Alexander on 06-21-2022 Methylmalonate [Moles/Vol] 241 nmol/L 0-378 [place] Comment on above: This test was develo ped and its performance characteristics determined by [facility]. It has not been cleared or approved by the Food and Drug Administration. Performed at: [facility] [address] [id number] Customer Service Receptionist: Millicent Calderon MD, Phone: [phone] TSH DL <= 0.005 mIU/L QnOrde red By: Candida Alexander on 06-21-2022 TSH Qn 2.46 m[IU]/L 0.45-5.33 [place] Thyroid Stimulating Hormoneo n 06-21-2022 TSH Qn 2.46 m[IU]/L Normal 0.45-5.33 [place] Comment on above: Result Comment: PERF ORMED BY: [place] [address] PATHOLOGIST INSTANT POTATO PROCESSOR GENEVIEVE CANNON M.D. Performed By: #### V [id number], T4F, TSH3 #### [place] [address] [place] #### METH #### [facility] , Thyroxine (T4) free [Mass/vo lume] in Serum or PlasmaOrdered By: Candida Alexander on 06-21-2022 Free T4 [Mass/Vol] 0.77 ng/dL 0.61-1.12 [facility] Vit. B12/Folate Profileon Cobalamin (Vitamin B12) [Mass/Vol] 369 pg/mL Normal 180-914 [place] Comment on above: Performed By: #### V [id number], T4F, TSH3 #### [place] [address] [place] #### METH #### [facility] , Folate 7.4 ng/mL Normal >5.9 [place] Comment on above: Result Comment: Rosa M te reference range: >5.9 ng/ml The WHO technical consultation on folate and vitamin b12 deficiencies has determined that folate concentrations less than 4 ng/ml are considered deficient. Performed By: #### V [id number], T4F, TSH3 #### [place] [address] [place] #### METH #### [facility] , Coding Summaryon 02-13-2022 Coding Summary HTMLBase 64 CfepcedsKJh4nYb+PGhl YWQ+DM4JIIWuN83bkMSh zJ7YM5cGUU2MXPGJWKTM IR6PLE2dxOI0HTaeB0Fb biAv InyokAYqLY17HOc2VJS8 kMeuUPxztW1xuPGkV9b3 ZeDvBZ70uB93NWlvWDYu BiJ1NkZxhvsgsNBc R8eqEfIsiGJpInx+PHRh YmxlIHdpZHRoPScxMDAl AhTpmImwOT4pRr8wNFOv LWNvbGxhcHNlOiBj r6tlUXQkHLedCF7zyKqy V3PgnQK7NNXjs2j1Jf17 dHI+GMJpVTE6nAvsLKki u201CdHxi1raLVD2 aHHlYSygTFX4Z17po4N6 MCPmUMBpCAK4vIM0xS0y gBlhycgbP3QqvFEgIzJ9 ZAJ0wKJvtV5lpWwe vakfcY9lPrn+Q86BIT7C KAHCTZ9QNqi8J2MyPylq dHI+YE06YELwFG29pEMw sSBib9lxfPy6AgVp YAUhDEM7aRutKSudq8Yk UNHbN87pmFGlc6E7DBDm bFzblGYtSnUlkIH6aB2t LYqyipjuc9oolzlp Rkiyu3lohe97kZ07R04a TBdkXHQeFZI3KQNvVDIi fPjgpn7zqY1bQy6+IDxj d6pll5oviXf8OdFa CGJxhoBfgNyyDXP3a8Hi Vg10C6SchSfxq5VuCzd1 zm15wPOyp4Z0bOE3WQxr QGXlvI2sUAaaWoY0 IRFyEeJrpD29vQAaUOcn Qs4ahNmfaUqqEP5qDXHu zllcVNZuoH7iDYQeqZAz sGhpAX0dIGIhjpql q284OgBjKNU7ZADwmMSu Z0DefB2kRcIrTPNrJNLp Q4DyoGBeAFlyX934EMzm OaZ6AQPtkaRyZ1Ur DPOthKijXpL6g4Y2Na7O t3GnrxpfIBZ6IHbaQAH4 XpA0HlRnDxR9S0RsYjx6 LJVbbKclFP1yX6Wf QZDdwqkcybabwLL7DRUj RDQtzV37hBTtYCcaGe0p m8B3j298PLWzPKGujW37 Hz3lqKcdCXGnoFEE vS9hpgooa6xswupcUlEr JMIaSJt2ODa8HWSqvSeu HgUbLBQ9QwG8PEA0kXMg mA4fsOcpvnwqtT9w Oyc+H60ghC8oTAO0CDX4 jczyNCJfhxEyLP87VM13 I4HoLdifwVBwtUW+PGRp mxIfbCacEX5rUgSl d8pzp5SjVTqoG0JoMEJw QCufLpu8CCAwMPR4cWI3 jV0aXVGnBFshi5I9qCU1 P2EeekKndf0qc4vq DEOfTCavD76xbWDcr4U8 ZYJqwUC2OLEucJtjKdWi bF72Jup+SGKhwVmbn8Bj Ufaia3csp6cxqZr4 IjMwJSIgdmFsaWduPSJ0 t7UoOg95X67yWBajOULg DVKdBNGfPGPdgAskuu1f oO9lAo9+PGNvbCB3 kZE1gC2nBKTpEfO9QErb X712OhAlbLJvQhmwj6py f3hnrPt6TaPvBHGzzoCh vQrqMWP4p4HjKj67 U15hKWeyQYRaJUTwIBHf XQZkgIhbsj8vpD7xDu1+ HN6jt2zmze62lZ16fXG+ ZRTjHKM5nFvbHFoj XHDxiX1iUWevMwO6NWLn ThVlyC43pGUoTEllZa8q aPbzcHclQQ7bRBFkejpj n134DeSwq5vbAFFc yFKaNIhtRCC1F20fi8W6 VHFjKGArNHD3tRN2vA2r bGlnbjogbGVmdDsgdmVy qCkkLDdpSMlxA527 IHRvcDsnPlBhdGllbnQg FuDrXBb2S6HaRlz9ZZLw zFnrOE7ffGYdNZooDw6n iSrygFjqWN9nMKCe irlay848QmQsr0yqNIPi cGKgRMcyDBN8P34jy1N1 GSAfCCRkYON9zMR0uK3h bGlnbjogbGVmdDsg huWqfRjzAFbmVTrfW055 IHRvcDsnPkJpcnRoIERh zCA2FE12EL72wGFip8B9 uGB0B5ViXGScoitt aeiuzTY4CGEnVBYquK28 Jr6xzClkGt8oLIIiGGR5 DJNayIBuT0YxjY2aJfTb UWGmBXZpP6TrhKDr OQykW296VKlkCgV0OOHe nxCaQ9OhCXTxeXiaDlK5 w2A8Gs9CX3P3ZJ39EZ21 sVTmc2D1nHV4F4Cy TVImxrtdoiiohMN2JGJp HWZscR71Tb5ccVevRt9h HEGwTPX5FHHegZKtB0Xu pC0gLnYrWFVyJPEk B1NrcEYyFCozW293CYbp PgT3AAKhxgTyE4YnCFQo mKhtTkA2q4A3Px3KBVr4 HY71FY48aWVlb7Z0 zSY6C1YnZENtlduktbiu bCU0GQCpQCAkzI15To9i uOavEg9wMBNsWTP4HCAv kEOyL9FxlT0wXsFv YSNeSQTmR3SkoUJnAMqc N154FDjxZsF2RWTecyOv I9LqMKBkrAezLuM2m1Q6 Qr3KNCBbWJ93TXJ6 eUF2WD76RW52I5NnNeqa dGFibGU+PHRhYmxlIHdp ZHRoPScxMDAlJyBzdHls MS4mQx0yXBKlXDCh mNrspIYwXmTld1kpNRTg ZGggTZ2iwPepB0UgeON6 OFCag4p7Bv98G21pT2It dXA+MHJdfFE9xOQ8 nR1rJsDhTaY4VYxtP382 LvBxzVMvXcqhc7his1ck dDg9ZfL3OKZnzuOprSks JCV2o1XxIo70G25t IHdpZHRoPSIxNSUiIHZh cUewxu0lbI5aFn5+PGNv kTO1wFG4rG8pZaLrVeO6 TFaqV727WjLmlMHb Zesym3jyh9lseUn7QbJv XFMhgpFtoPqaMNS1b7Qa Fi92U1ZyxMrso6WdLbb3 oo41zPJwi6N9eGH2 R4NbGRGutnslyNAkmOtf LB1jEJRddqozUDEgsI3w FCBbX9a2SlVsVhG1PIah A3XomlP1YGKipLOm SZtjJPV8T83id7F5SVQo CQKyPGE2bCH3gH0yrQot bjogbGVmdDsgdmVydGlj TUbqHNkfV891OZIz fPxqPOAiqK7sIGGlkDYd rUiuCM2kCPDokssvWfPA F2PGH64MOLBKD2UGMtIq MHvNNZ36U2YcIau9 PAOobAglWS7zcZGtGRom Ur0jfHqnxEbdEQ9xFHFw zshcIFEquH2pRIVnhBFk xIreLY6eDORrdhid n658PxTmGJK7LSKewMBo Q7CrtZ3oHjJjWGYsKNEb Z2RqdWMwAVveX088LVpv BqE7QTOpjtIfQ5Nh MODaaNbmWuV2a3U4Lv9h UD3pGg4xFLQ2UH18HR98 mZLaq2Q2gFS1N4KkWMLm xwgblcoybAE6BFVq ZMWpuM12hYFpVMhdRj7p s6J0h345KTMzGGJfvN15 Gb3qeCdgLAUkcOOIfU3d iezhk0rhtmszVnJa RDTyRSa3PDw0AUGpgTqc DmBrTJI7AuA6CWW5uYXh kL6umGuemsgkoI4fIty+ TIXlYXUnqdE6B1Ll Jun7TRMrzAnaIL8gkQCa MPkbBm0neTaplTjpZP9r LLOwysorDGJoaF7lYYAg kNZbsPfrIO9uAHBd hhxiu463PkAvVZA4MVZk fSCeW7IbhF0sIrCoNPKc VGMzN4VktAFpIXhbL650 DRcpUdY2VRUhpcQv R1XyTPFqwFifWwY4b8J0 Lm1LTRiCKQ54WN85mRCu w6W8wOX5C6DmJUWrimno kzpnvXU9UQKbLXIi tU87eJUfDMrhSv2rx3P1 k379PXYtMGFppS04Lx3m cWzvAATxdREKzE6gzvjl t3ixzooqFdJgCFVg RKu0ZEs6ZEJzhMypCtLj ORB9BvZ9TVH1jPDxqR2d pXcstjtmyN9rXqp+T1A8 T2BcKoanqUN+PC90 NTHsQC00cWDgzRChv8af zRh9EtAdBZXtXGN6yZst MIlwd6PoZOTrJ73xrCPh r6M9LSCyhHgagXAn MhJsfJM2hR4wSMpwhcmm e2tezwsoEkpue5ziee01 cX37M64nXGhcUJIbJMRf WDYgYXHuxHfqlm4a vP1vFz1+XYEqcZT1bAV6 pJ4wGuLmPhB6RTilR064 JeXtjWEuLynag0qad2ur xVf6SpSlKBOntpIi hLtyRLR1n8SsQp86A88x IHdpZHRoPSIyMCUiIHZh eIqopu0zbL1oBl6+PC9j z8vyuq62gZ07aJG+ BAShPKC6gFsxDZbkOVPh kP7zUWmhGtK9XZYvFsMi xN41iYPwNJsvWo6ecXla gWlxFD7qXMEckdoy o028YsMno8cjKWWgwBXh OOcpFII8L54sa8D4BAMc QFIcSUC9rOW3uD2hjTnm bjogbGVmdDsgdmVy zSvnLCvcSSioN143HRKa kIrfAwBefUCvP2ravlIN OH8lLayslWX+PHRkIHN0 vWezYRbgCEEhjA5v PBDkY1a6GtHbSzN6AQzs B9SxxvS7MYHfhUWwSMAy eSOSgR2rvdnar8retlrv VaGwQVVzTUt9ZQr9 GYGboWwrPiCyKYY0RkP0 OOL6bBKblY5vbKfilbct sX5tWds+RklOOjwvdGQ+ EWHgYRX2dBemDJvo QOIlrF0xWBCzN0a9WfYp ImN1WXgsO0YgtnY5QNJa hKXuOWNqbVMHuC6wckxb g4gneemtVeGhZLGs XSk2YKp5FBEemWstHvTo GWB4GxK5FLE0kSFxaV4b mDfbezruqC5yQlo+TVJO OjwvdGQ+PHRkIHN0 kBqmCCriRQFcjX5uUQLj H1p4AkXzKcO8PLczG1Mq zqP9YMBmcMScYCJgmSXI cN7tdnird2zkdnqd WsDfIGZnRKg9DKs9WFWt yCftGyLsYBT3TjB1GDM1 bCNjlI0jcAhkuswrzV4j Oyc+CKH4ETD3OR22 PI47I9YgIjhpfWRrlPW+ PHRhYmxlIHdpZHRoPScx ZMVySnDtxLxrYS3dGg1d ZGVyLWNvbGxhcHNl OiB (more content not included)... [facility] Coding Summary HTMLBase 64 YotrprpaAVn5yNs+PGhl YWQ+ZA0CAPJeZ12yyRYv oA3LS5cBTO7QSAUNRMRT FS4JOL5ijJK7OBetB7Rx biAv IupgsLHkPU62IFr7LHB1 tSadZPekuC6deEIaB5v2 UuUsIW90sC83MJwzPPCw QnO7KmAqjwkvvKKu Y0liEbUdpWLpWhc+PHRh YmxlIHdpZHRoPScxMDAl VlJrsKkyIC0eIz6nVDRf LWNvbGxhcHNlOiBj p5qaNDXnWKbgTF5kcNsi P9BuaIH2BCNzy8j0Ni53 dHI+WZAvKNP0hPqhLMix r736EiRdo6xkKWD3 oLDnZApoMJW2D81tn3M2 ECFiNWRbAPZ5cMA7lP3j rMnjunekI0HghUVmVbD5 TZQ7mUXwbW7pgYpo vvupfD4xIge+Z33VWW1C VPRZGH2OXuw4X6IfTfsv dHI+QW64CWSeFF87cQIi yHUal2bhsCv2NvEy OYOeOLG0qEgnLOlyk1Zs RBJxE51hjRIlu7U6CLUd mAnljFBvLwQcfOM9pI6l UOgrgxyeu2udgesp Afjup7vvsf43cU01Y13g LPaoJBAoAKP9RVXeCOEl lElkej0ohU3fQt5+IDxj q3sdh3cjbIt1DyLk RENvvzChdEchBCW0i1Nu Va51H0CfmYqiu3JwDiq9 xv14bWNpi0I8bNJ8MAdf WNLtsN3yIBjoExB3 OAEjIeMotV30hQYtTWkb Id2vcFjzjGnpJC0fVWIl jiliUBNcfM9yPYGsnRLb tEpkVY3pXJGnptxf m860RyTnLMU2GKHrqHWl Z6EntJ2bKiGnUMRdGBAb Y0XxxOQpEIpgX594SBsq LoS0FPEckoCcI3Px CESajRazKoI4c4U1Ux6E k3MszpgfZXG3RHvnEZS4 ZmX9ZbLgEjL1G4WtVse9 MFFroToxTU9tQ8Lg TMTruokxxumxsUV0SQTt HXIyaD82jARtLAzeLl9h p6Y9b371JNSuRSNjdJ33 Gy4ucDvmVDScyDXE wU1nltppf7zioqfxUnFw ONHlEJs4WDf2RUGotIeh CrUuMTU6NaY2LRE3sNDy gH5lbMerwgtqoX3d Oyc+K11vkG9oWZV4UYF0 yfyjDERkqaSsWF77LK20 D8UhXznzeDIkjIE+PGRp iaFzhFugMQ6uXaIr v4mrs0BpDHbdX6DpXTHm ERdpDwa8KWQiUIC7lQC4 aS9lYIOzRHdva8X4qDN5 O1BeiqOxgq0io0oz YQJvKNuwV28hmPBuf5R5 CFMuwPZ0PTJnvAabPqIp hO02Vww+BCJrcIatp2Nu Npgtr8mcq7wkaYd5 IjMwJSIgdmFsaWduPSJ0 f0JcGb82J70oRPtyTLRd GRSsRKIoJUZqlXudqc0h sD9aVu1+PGNvbCB3 dFL1qZ0cWGCfJtV9TCih D707GwKffRJkQxnzj4wz h6seqSg3PxGsTFOdvhRy yQawHEB1m7BuCo47 E04zUDoqNFHgMZOcKZVs IWAmmRdkid0lfS6sRj9+ SL1kj7kbgh24sN56uCI+ UGTcKDY9yCmuLEif ZRRueK7sWQoqFoH4YJYe RhCklV90qKQjDSujHn9h wCmeuAmtLO1vGDJlmsvm s844DlNuc7bgGTKw tUHqPVakGPV4Y20im3F7 AXXnMMHuUFX5rXQ7tE1l bGlnbjogbGVmdDsgdmVy kYmhRYikDUfaM857 IHRvcDsnPlBhdGllbnQg WhGwWIk1D4EhGld7XVTn bLiqGE2dxRIiQCutEz3t rVunpLxrXE3yTCKq xwzin483IuJxz9fdUJXc xNFqIRxgKBL0Z04ti1Z6 GSBcIOUmRKH5wNE7rU5n bGlnbjogbGVmdDsg ygHnmUrgJQqxDXvlA084 IHRvcDsnPkJpcnRoIERh mEK7EH66OI22gIPlo9N8 xHB0H3TwGPOernbl wklpuRR5QMUfGLSiiI66 Tj3ufSqhWv4wJEFrLHB8 LXIkqLFkV3UqnV9xNcMa UNFtAUXjV9ZzrKKo GNexZ978UAuiJvB4HRWb ogYwV0LvHTQpiRbqEkD5 l4Z8Xy9TX1O5WS49GX81 lTXsu7Y5tFI7Z6Sk EZSnglywdcgwwAR2TSAp CSKbdU78Uq0bdRskIf9n FEXuWHG1AHPcwWMoL5Oa fX1nWgVqDJCiOAHz S2GmwAZrDPpiZ863RGeb WuI1YAAbbhGqB8PhZUBv fTwcUsT6o7J0Lu5PGVa4 HN76QD12hFZzv0R4 oYH0R5BcZRYvhgnvjebf sCC1ISMdGJZdbB89Uh0a hOaxEy1aFVRaIFI8EBGi tXHiX1QqjD1sKbKh HXJrDIMoQ9NzuZXqZWol K133DGnlUnM1OPCidlHd M9CbEYKqpLjwXwZ8j3Z0 Da7GXDRbOG43TIY3 dRE6TF29HZ58J7NxUohl dGFibGU+PHRhYmxlIHdp ZHRoPScxMDAlJyBzdHls PO8iRx3oEAPrFVCf wAcyxEAgRmNqg5hqOQPq PKexQC6ewEbuE8WpdRE6 HEDmh7v9Az75Y33qR6Qc dXA+NOOobFX6uNC1 rR2fXrBjPmP4GPlhF387 TfOvnXDjImboy6fnt4od wBi4YuG0UJUrioDysYqc RXW3s3WmBi56W65y IHdpZHRoPSIxNSUiIHZh kTfbjs2xdL5tWm6+PGNv zCB8lVM7lT0fYbRnMhW7 QTdnZ377WnOfeNNk Lsblu0tzg2luaZz8SgYx PVKemaJodDraBHJ5u3Fe Ld62R7PlpMbzw9JtJjt0 oo21kAQrg9L6eWP6 Q1UxDQVmkpswjMGhnLmf RU0jNPAmazsmHHRceY8u EPLwM1z0ZfImXrU6TJlm S0YrieL2YVDmrAPu EXbnSBA4C55ls6M6IUWr RUNnUNS6eTJ1iK4vdDtw bjogbGVmdDsgdmVydGlj RYyrJRplK962LBCm uHekIHUcxF8aLGRasLAo tTrnXF5jQUCydeqmLnJJ N1KQL78ETZWCK2OKWuGt ZOxDIS61B1KmFod6 IXOhqApcFD4urUIhGExt Pf1faYoxgHulAL6xESAr qenwSIDvvQ3mNHSnuNWx xHbaJQ9rOQNzctea g039FhTbGYD2BCDolKYa D8CabR9iTpSsNDIlRKDe T9RjzGQiSDwxV352SSlt WhK9CYKptlMkW6Tw VLBmiRtwEoJ5m9I0Aw4z LW5yCq5vZTW4MW11VN02 mHGtc8Y6aTV9L5ErCJFe binifqgliXX5AJJt VYBoeN84oOPnDYuoFf4c e7J4a054JFPgOXQlmC17 Fg1mzRfsUDNtxIBHiG7a kstbq8secfkxEiJs FPGtEEi2LGr6OXGzfEcb MaWyCVE6BkC7DMW4qAJf uM5mwHnaynngnW8tHdt+ JZMlPPIctkW5G5Fu Pqr3HPZxiRowBI5fqWXn CGssSs3mtGkjoVisAX3j GTOybpkkCBMgeS5eYRVo sXObdFvxME6pSPEj dsuqe215VcRlIQA0BXZv wBKzT2MptM9bXwSdHVNh QMSbE1OwnZUnTSglU480 LBheXdD5NETijoQj J6VzLNAzdSyjLtX2s5D0 Ac6EFUpNXB18HM34vQQs z5Z6fHO3E9XdAVDgxzwl ecizmXP3MFHdSEWm kZ18wFNnYRgqZt2vy3X2 m070BTDbZFXelY12Pv1e tCflEOXywECVaR8xlbgc x3kzvsizFcDxKOQf IWl5HYe6XACzgRtoQdYh YTX6HyX3IHL2qSDqlE4p xGccgrxguO0eOnn+RW1l vgifukQ6XG34AX92 O9PpItqfjLLhfEX+PHRh YmxlIHdpZHRoPScxMDAl XcOcmUeyPS7iNt3pFWWc LWNvbGxhcHNlOiBj v6ncWJLxEVgxMP8omIsp D2VewAS0CJScs3h2Tv60 E02bO5YbvJC+PGNvbCB3 nOH1vF9pQrGdJfB9 BIcdL323BmPpwFHvCduc z9lum4suuSu5CjMkUUJs kdDhpEwcUXG9k5ZoMf50 U15oMVkpGIXxJLSh YEHfEIAhpWkjtb0euV0b Ii8+YAKvgGU3wAC2hK5c HoJwAeU9IGwtA229CjRf iHTiUacxL44xI1Tb dXA+JKNoHlc1INCemJfo ZJ6zlALnULmxSl2xFQZ9 HeAdPnKuLXdjQ8JrFZIu kefkjczmxJG6HMCs VZYlyT20Kz4daIqmFi6u JNNtEGX0KIRqoJQqO4Jm gH6nKcIbWZSaAXRvU1Wt fDZcUXmkT087QOlx VpO1FWUvfzVvW1YnNJEc xDerQdZ9u1G7Xj0FzTgg jXRaXJ9tNxCgBGx7W0Mp Cjm9LCTecImlVZ2o vCBxJDpyWc1pdDefbQkp WW8wYJMilvdvb107NyEa u9vvOUEpaKXwRXijOCU4 J89ys8Q4RWYzJNPj JTB0fNF9pV9ngBuulvuw bGVmdDsgdmVydGljYWwt XCclB232QNHldVudYqWN Ggl5O3RyYyl8GOQi pHczNM4usMPnWUgeXi9w lRtouLajWT2aIXAobpak h164OrEcq4lcGGLkwZLb YUjbSSO0G59tc8P4 WUJeUOWwAGO9fVP0kO7j bGlnbjogbGVmdDsgdmVy gMweSEgiJGjtN527EUFz xSwxMo5ZBhz5W2Ij Ang6FUUnoRbcOZ6ekSMx JFaoMq9uiSohkBgqPC0i WULfthphs899EdKin2of IDEwcHQgVGltZXM7 J58el5J7LFDwKILcGEA6 wLM9wW6vzUqhjtidkUPx dDsgdmVydGljYWwtYWxp I565LNEhoXsfYgTf eWVyOjwvdGQ+HE27ph82 P9QjTohdOyx8SNOkCEL4 qUF4tX7lONQvUHrwp3E7 tEB6Q5VazqKcli8n b2x (more content not included)... Normal [facility] ED Clinical Summaryon 2021 ED Clinical Summary [facility] - Emergency Department [address] [place] [id number] ED Clinical Summary PERSON INFORMATION Name: ROSA EASTMAN Age: 56 Years Sex: MALE : 1965 MRN: Acct#: Visit Reason: Hand pain-swelling; RT HAND SWELLING/NUMBNESS AND TINGLING Arrival: 02/05/2022 14:13:58 Discharge: 02/05/2022 15:08:00 LOS: 000 00:55 Check In: 02/05/2022 14:13:58 Checkout:02/05/2022 15:08:00 Address: [address] [place] [id number] PCP: Britt Goodman DO PROVIDER INFORMATION Provider Role Assigned Unassigned [...] Follow-Up: With: Address: When: Andrew Mckenzie DO [address] [place] [id number] Within 3 to 5 days Comments: Diagnosis [...] for reevaluation. Prescription is electronically sent to [facility]. Return to the emergency department for worsening symptoms or concerns, acute shortness of breath, chest pain, abdominal pain, nausea or vomiting, or any questions. DIAGNOSIS: 1:Cubital tunnel syndrome on right; 2:Paresthesia of hand Patient Understands: Yes - Patient/family/careg iver verbalizes understanding of instructions given Comment: Normal [facility] ED Note-Nursingon 02-05-2022 ED Note-Nursing Pt presents to the ED with right hand numbness and tingling that started Friday. Pt also states swelling, none seen at this time. Pt states a hx of surgery to his right Arm for a pinched nerve 3 years ago. Normal [facility] ED Patient Summaryon 022 ED Patient Summary [facility] - Emergency Department [address] [place] [address] PATIENT DISCHARGE INSTRUCTIONS Patient Information Name: ROSA E[place]MAN Age: 56 Years Date of : 1965 Reason For Visit: Hand pain-swelling; RT HAND SWELLING/NUMBNESS AND TINGLING Arrival Time: 02/05/2022 14:13:58 Primary Care Physician: Britt Goodman DO Attending Physician: Lennie Wilcox MD Comment: Visit Diagnosis: Diagnoses This Visit Cubital tunnel syndrome on right (G56.21) Hand pain-swelling ([id number]) Paresthesia of hand (R20.2) Prescription Information: If you have been given a prescription for narcotics, seek immediate medical attention if you have any difficulty breathing or any sudden status changes such as confusion and sleepiness. If you or anyone you know is experiencing suicidal thoughts, mental health, alcohol and/or drug addiction problems; contact the [facility] 02/06 Crisis Hotline -Text 2HUSK qn [phone]. If you received any narcotics, sedation, or [...] documents With: Address: When: Andrew Mckenzie DO [address] [place] [address] [place] [address] Within 3 to 5 days Comments: Diagnosis [...] for reevaluation. Prescription is electronically sent to [facility]. Return to the emergency department for worsening symptoms or concerns, acute shortness of breath, chest pain, abdominal pain, nausea or vomiting, or any questions. Medication Information: The exam and treatment you received today in the [facility] Emergency Department were for an urgent problem and are not intended as complete care. It is important for you to follow up with a doctor, nurse practitioner, or physician?s retail assistant store manager for ongoing care. If your symptoms [...] so we can reach you if necessary. [facility] Emergency Department has provided you with a complete list of medications post discharge. Please inform your taxi truck driver/provider of your visit and for further instruction on these medications. Any specific questions regarding your chronic medications and dosages should be discussed with your primary care physician(s) and/or pharmacist. New Medications [facility] [facility], [address] [place], [place] [id number], [phone] predniSONE (predniSONE 20 mg oral tablet) 2 tab(s) Oral every day for 5 Days. Refills: 0. Additional medications on your home medication list not specifically addressed. Please contact the ordering physician if you have questions about these medications. acetaminophen-hydroc odone (hydrocodone-acetami nophen 5 mg-325 mg ([place] 5)) 1 tab(s) Oral Every 6 hours as needed as needed for pain. latanoprost ophthalmic (latanoprost 0.005% ophthalmic solution) 1 Drops Ophthalmic once a day (at bedtime). both eyes. Visit Information Allergies: Substance Reaction Symptoms Type Comments Bee Stings Drug penicillins Drug Vi (more content not included)... [facility] Provider Orderson 10-18-2021 Provider Orders [id number] [email or web address] [facility] Coding Summaryon 10-15-2021 Coding Summary HTMLBase 64 KynqfpgrPMy1eUf+PGhl YWQ+OY9YYTYuO29mdBId mV1TQ7gNGU1LCZSHABEB VV5WSA7toMQ8LCpdF0Gb biAv FcoilNAiCS49ULu6TRJ9 sWumHWbjfL4ioNCbW0n4 MzNuMR31zP23ZKjoOXYt HyB8LrIiskhuvKJw S1udRkFknYYfQpr+PHRh YmxlIHdpZHRoPScxMDAl UoIhiIuzFG8cUq8rRYXx LWNvbGxhcHNlOiBj f7qxTPTsEVcaVY9vwBmj V7UzsEM0UQVyj7g4Kb43 dHI+OAMxGKM7dSuwINyp y047EzUqt6aqUZD0 jVGxJBvgMNM1I52jq2G5 MJNmMBReXRS3sLX5cZ1w iXejehuwG3TqrPZjHhZ5 HGM5oJRprL9flJuh dpbpfM3qVbj+P76YKC4C EMTAGZ9LNfg7S4JiUqiz dHI+PS35SSWrGR69gHPy wSUpq5lgfIv9JxYn XGReWIX8vYnxKMyui4Um ZSIlU66mpJBli8X8TLIv cLkriEXnZgFuaLZ5xF8u MWtsewagk9ugpccv Shmnk9ygia58jF41M10u WKmhVXFsNPT3BUWfXHNl zImbvn2itB1wWx0+IDxj m4dby6xpqSd9WiFa DOJtlqQbeKffOPQ5y1Wb Mj76N4NywZigu0JtElx9 ng71fOJlx1G8wOY0EBtf ARXotU9pBNzpKnR9 FVJfAbVzoF59mRQsVWzl Nr4uhLngfRrwOA5uXCMi dynuZXFvbW0iYKGtvMRf eHwnBT9kGPEahnuu l171BdKkLEI0ETJgkHQl B4TsgY5wKgVbWOOlFHYg N3RwpGGrQFjnL017FWha VfA6AXJqfwTgT5Fw CWMutEipZwB0d2P5Ml0C w9MrigyfPRB9UPswOMDk ZrY1LoZhXgU4E0JiZze2 YGNxxOgiSO9rG6Hl ATHaugrfbawaxIZ9HHHw UXGxuH88wBOeQJodYt6s x7X9r155SLKyKUQiaB43 Gs5wyXsnKRGacCJH wE3nwgnqe6igfcewZiEp ELUvMGp7NUp9WTScxMjs XtApALH7VcV5AHM6fOMx kP3fzKfbcypatO2a Oyc+H62pzH6fMGY5MFA1 gqneMTCsjpMoVM19PC88 J8JwQnpnwMHeqGB+PGRp fnQolHjqLZ5lOeJh k3led0WqFCckU7KzKZBv ARifGsv4WCPaWHK3jBF7 gT0kSLMuJZnss5V0lYA9 U8XmmnEtqt3yl9ga MKCnSQrsY09jxNDth1T2 KNUejZJ4ZMUprNhmTcJv qX73Umo+XGAbnVoti8Da Zxbnf3flx0twjPh2 IjMwJSIgdmFsaWduPSJ0 c1RhAj70A22hIOeiOPCf YDDzKFYtDUVtdRjspu1v pI9tKb4+PGNvbCB3 zON0eD3iHTXcPlY5UXnx X496SpJycONmIymnp1qc j7hmnNq5HtBcYMRqngTl qYahIML0d8QyEm87 R76rFXgeZDMpFTIdIJQr TWPjpAumgy3hhA8xYz2+ LE6df5sxiy35eH89pYS+ QKBsNIE2aLzqWQlc HZJqtK4wDRigBhV3PLBs KoYjlJ84tERaLUghLm4t uZwbuBbiJM8pMDHlymxb e934VoBge0iuKNRa eMBzERrlNDP3Q50ed7A0 KTPwRHIqVDO6nJK2hW9q bGlnbjogbGVmdDsgdmVy tNznBEsgPKdpJ190 IHRvcDsnPlBhdGllbnQg EgVsAVu4Q8DuMaf6XALn kMjgQU0iyMWbQGuuUv4h eYaiqRbpWC2xAZCy djssh960UsJob1upILFj fLJgDBthOTO9V23lb2Z8 JLNeQMQpFRX6vIU1oD5e bGlnbjogbGVmdDsg znCioYkbUZssEIhgR656 IHRvcDsnPkJpcnRoIERh vCN9RQ92OU96sFOep7Y6 eBR9G2JoLEEwwgsf oaxvbLV2WHOaSSMfdZ72 Mc6dyLasGj3nYYLeGMJ0 ZTAjrZOoK3GplK9wQrTh ZFIrKDHcE9CnlAKg VZyaQ106EFoeJcX9EAOc ngPiC0TlPABbuHmxGaH9 s4E0Tz5XX5H7UZ80TL23 aCIfv2I0lWW6O1Ef DOXwpigvakfxhRJ9NBAs RHCwwC05Sc7gqYxgJj7a UDKiDBH5NHDivDXgB8Oj uU7dFlRcWZVcTTEk N7MmaQIgNAfnH962OGuf JzT2QTTtqsYtP9NxPTZo dDptLaR5h1O3Yb3GNHw6 BL65QQ27cEQhb1C6 pEH1K6FcLURddkbquzvt lVB0ONCeHLTsbI07Nt7z zMmdFy4kLASqNHO8VWIu iBYqU0SbpD5hCnKt RMXdIUIxF0ZszMLzVLxw X706QOttOsE8ARWqinXi M4PiBUJlqVgwFfP7d5Y5 Mf2IYUTfQA74BME2 bAW6KF40BO95T7UlEgyo dGFibGU+PHRhYmxlIHdp ZHRoPScxMDAlJyBzdHls NO5hXy9nSVVqIHMt kZzqlEWaZuEau3ktOLGt NRvyFD6diWmmL8BrpCS9 WHJjz3u4Zw37G92uL9Cg dXA+YHCdsLA4lBD1 gZ2cSrFqYvF1LNqqR746 XoNenPTzXpsqa2fgw3ov eSm1WpQ7VZIpmkQqfDdk TNO7b7WbLv37K63q IHdpZHRoPSIxNSUiIHZh dHwrtx3buF8aLb4+PGNv hER9zVM0kA5oRuYqOrM2 TNieN774TtMxrIRv Suvuy0qqh1urqPh5StSh UINlfyDnyKpnQQT2n4Xs Io28Q4RltYboe6WuBiy8 uq88oQVkr3M6iGH4 S2WyITTjkxraaJUncZmd QC4lTWBnkrqpAATkeK0m IVFtQ7g7MwEcXtN1EKvh V8QjakY2HFRkgPGg CVsrQKM3X67bo0D0WDYd NGSwDJK1oVC9oY6yyCdi bjogbGVmdDsgdmVydGlj PKsvTAubN228IELw wApdPOHttO5xDPYurRXo sOtiJX0qPWImzsoxGmSY T2MLD90HYWWYP3OHTfWj MCiHQM67H4CjWvg4 IDAywNtbTT3iuIKoONes Ya7yuYwloIyhCY9mTGRq fbslFOHnuZ1gZDKcbJXu oKcyRE8wCMUmfggr m215CnJgUKG2EAPzvOFg A2OeeJ5sYbGaMIBbKZLy K7VfuZDkXRnoI654GZav DgM3KTAzefZhW7Xr DATznHxpXrK8a7Y3Pw0r EV5dDq4nUPK6QA29WY45 jHCfp6F1dLX7L8KjFQNa drayuaqdoPX0IHBr CMNbeR85pYJjVUywPs4e b7B0p130EWXaSVMemS74 Ru4vbXouNHZutSKYpG7x uokst2lpitidAwYn WDRwQEl8JAi9PYWbjCnc BqYmUYQ8OgJ0PJG8pMUi jR7tmZtuiqkdkJ6sWgb+ VVPkOGJljnN3D7Dw Ajt3JAAlgQzbNV6bkUSf PZdyBt9scWgvqJyiDF4p RVAsgaqpSHNobD8qYIKz iAIxkPjlDY7wVLJm zfeef147VpTkRRB6EPEt pYMqA3EmeO3aHwUyYRTk BDSiF3IwfKRyLOfbO507 BLtgWiM6RGLuhtNj E5ShYZAgkQdtWvB0j7D3 Id7DFOvKON90CV37sYLy f2X9wSX2P5HiZZGekiqm mvdapRS4GUMaVTLp hP34qCWsFMzdDe5qy6C0 h909DLKjAKZiwU61Lo7m dSeoNRPukFEAkN6jobsz g6axkxzgLgKjGVXf EQm4MUf0EGJvlYkjMlKa HGP0NjX4YJO1dGFniT2z dQdsyxnqnM2fZfe+T1A8 L4HeYokieHU+PC90 NQNpIO26uKLonVZyl5hh pKd9GsInGZGuJLA7tRqu SOkwk6FxBWFuX49zwQUh x7B9YIFczAvtgHHd YcHfoUO0zN4iMZcwuxwn n9kdkfzeAnbyi1zxjo47 oQ79Z26vTXybLALoLTYj AUAiCDDubKyywy2y jL5sOq3+KPMeoZK2yEK7 gV5mXvRmLfY2BQgjM522 RmErkSPeFvjtl5igi4uz kSf6OzRxPUZuenSi nQffOIC1c6JmWj46Z60n IHdpZHRoPSIyMCUiIHZh nMrduc6jvD7jSo7+PC9j u0djji06fU14yUP+ BOCaKLV8hIbkZKkwRFVk gF5mCOawQrX9KXCfKmWn bZ76mOEuFLmiIw3rxVzu hRthNL6hFZGajafa c373MsEvl0btYNOzbROm YPorFVC8A88vv6X4KJMf TXBpSOE8fFR9lZ1jfHxy bjogbGVmdDsgdmVy qCezEJswWXqcL242JJHv yGbhHuHdfTTdT9kgzpGP RL4qOxvexTG+PHRkIHN0 qFwcUQinXFFkbP0f QIEmR5l7CzXeAsN8VCss Y5LzweA4YMCwtHClUSQj tXNXbW2rzgxzt5lhmhtx UwOjUTEvNWc4OTh2 VGHagPevQwQdJET9ItX9 ANH0xNMpzF9giMvlvrwu zK6oWyw+RklOOjwvdGQ+ CTGoYKJ1tNmqGYwm DOSptV4bDGJbI1b0NbKg KeR4QLhmR7BlouA8NDMi pBMrMKLgwSBQqI3teuvf k0axgdqgSpJcPWPd OVw1QVs2DJZuyEmaPbXz LNL9NeP5EDF2tDFtwH3g lEshbkoejG7fKgw+TVJO OjwvdGQ+PHRkIHN0 wCbqEYxrXDYanL9rOWId W7d1SgBjPgM3BGngG7Or efN0QSQsnEJiWXNrsOOT kP4zuyppl4rhceuh XsOzBOArCQf2YXp1KQZu cXioIxSyNDW9CmO9LIH1 tXUcmR9usKtfeadeyB5m Oyc+IYZ1KIX8ZM54 SD16L5IbJonicCNcuIX+ PHRhYmxlIHdpZHRoPScx SKLgDvKdmYfeFY2xFf0k ZGVyLWNvbGxhcHNl OiB (more content not included)... [facility] Rad - MRI Reporton Rad - MRI Report [id number] [email or web address] [facility] MRA Neck w/o Contraston MRA Neck w/o [...] Torre MD 10/12/21 7:46 am Technologist: JERRI [facility] Coding Summaryon 08-30-2021 Coding Summary HTMLBase 64 GwpyvdirHXd3mRq+PGhl YWQ+TV7DUIWbI09vmWRo mJ8XH1uDKN2OIXQZQPKB IA9XSA8ogSR9RPthH3Dj biAv ErtzlEHmAJ98MAu2GZQ0 mNpdCVwddG3fvLEnJ4s7 TfVyCK08bA97LPdaZAVq YgV7HxUysikumUMd I1nlUxXjmMYkZpg+PHRh YmxlIHdpZHRoPScxMDAl LqZsmIleZN1dEf8pJKPa LWNvbGxhcHNlOiBj n3urEFCuTAhhOT0ywGca X5CwwBI2SALrt2m6Ip89 dHI+WVVoMMC1cXvyTMtc a855NtAtq7ppEXZ3 hSSfWJxzLEF0J36xc2P5 HZNjKQYsAZS0bLQ7nD3i eAedgkatO9TvfWBuFiP5 LUU7hGEnlK0nqOvt pwukzQ1ySki+V17CXF7Q NMWKVY3GCzj0S3RuIafi dHI+JI15ARAzHD68tYZl sWZwv0mlpGf9CjJd QBCbWSN8bNmuCEatl0Yz GJGzL63fgNLuy7C3UEXr wHbpkFOhFzYslPL0kH0f KFoizgltn8uergjb Skcjv6blzb23lP06D06i NYbaIJBrNHC2HHCtGNLb vDnubx1puA1iYz7+IDxj z8zfm9vezTg7EdDu CXVdisRxhImfUSX1j4Ux Yy31Y3ZxhMzjk3OnAdu0 ig62eHJck4Y5wQX4UUjt UWYssL0oLXmfJlR5 LQGwQfWqmE15dCSqBNxu Jd5opJwxqQodGI1wFKEv zffqLKYruP4jVWYrmSCo qDhvCP3hPNVxegay o988KaCiHUD2ZYGuaCZj D3KfjO8hNvOrWFUwQWCk S2ClbSMlYJzhQ410DHaj KnE5GTLhexWhR4Ll IFZqhHriKxK1f0L8Qr8V r6FisfwuKKK1LCyoUOIe EqWmGhRcYvJ5K6GmGin8 SRNmkUjhTS7tU0Ue UOFhlylisoqblJV2GGBc ZHBowP53sUGnERxvNd8y y0W4j457VAOsZJXvrJ30 Sq0nhDixUEOooRYA aB3qbmgkn2uezgltTmCg WFNvSFt2ABr9VCJszYmy KaWlFWL4PeA2BRU6zMHh zA9zrUawndzqvM2v Oyc+V28skY1yRJC7JJB6 oxydWKAcohHeKA88FC53 P5WmVzraqZVeiCX+PGRp iwLbyTbsOU4kWbGn c8rsw2MgHYznW4YiIXCg KDsyPsv0UACbVAH9xTJ6 yX1fENWaPZurj2X8zOG7 A3MgoiWvcx3bt7zn NDKeSWzeC47onPXve6N8 KPQseQL9ECDopEahQnBv dW47Ras+XUOogUncl5Ey Pgffj1olb7gaiSi5 IjMwJSIgdmFsaWduPSJ0 h4CoRs68D06gHYcnMJLp QDOyECKpZWIcySgutg7q pX3sBe3+PGNvbCB3 yOB6iB6gZADnFaG5BUip X954XrInvNRwJojnq4yv n3aieUk1OxEwGYZernEp uSnuLWR3z5TtOj39 P27oHBrgRXCbOAUySWVt NMOhcJgtnw6euG3fPm9+ GD1cr0dtgt52hO52kHE+ YXWkJAJ8oNvyPBgk QPSkbJ5xKGinZsC9VCYg NrUkvI51pSDcGZrgQp9f eOowlBtzLT2lILAselgw q985DjMhr0dhAIRm zIZdPWruXJT1I81mr6Y4 EEHdCVAzDBN9jZQ7rS3o bGlnbjogbGVmdDsgdmVy zTbtBDuaCPmxN390 IHRvcDsnPlBhdGllbnQg ZzFlJTn8Q7PmCus2EWUp eBwgWS5jfSUuOYhmKj6c bYigkXkwYH6uJWBt qttko613KuQbk9nbBRQp eRMwAUkxIEF1H50jg4S4 CRGoNOPpWYT4dPK1fK6y bGlnbjogbGVmdDsg wdUtpAurMJdgFBnzR257 IHRvcDsnPkJpcnRoIERh bXW7RD67EN28xHKed6N0 iSO1P5TyYMTtbjlm uvqkhQW3YCJuCPGayY94 Jf3afIezKy4dKILuOYE0 EMIrzBJvG7AbhC8sYbHq PYCoSUWzU7NvrNBe FUjvR931YIwtLsP2BCEm xpBjQ2IqYSUmgLnuOcF0 z2P8Ko1PI3X9FQ93BX03 hZNjr2P6aBE2Y8Ia FETimuzmyipxvZG9OHBk IWWcmF43Dj3zbIudOz1b MPPwGMQ9WTOxrGEsT9Hk jX1ePmTnAXIyREVu E2NttYRaDAkuI761DOua OcE6JGNmgrWxZ3XwMILf dRhtWcR1w4Y0Rr3DMJz6 HB17XH96gRNbg9O7 xPH3R2VyUASxgnfxlmuz hDT1TXElALWjlW73Ex4r nPdfUh2fHGBhCEC7ECZs xVUxH2WfxA4sSwKh IUEwIPIfH6IiuSOxHZsz A461RFtdKkN8SKUgvbTz T6McJLCokRszUoN3r4U3 Pe6SCRKcIW85AKL5 bRI0GB45LR25O0WrFujk dGFibGU+PHRhYmxlIHdp ZHRoPScxMDAlJyBzdHls HZ5nAu2eCFPhILEm rMyklNJkTbUtq7weCURu PLxqXQ1alJanV9LmsRN1 TZJta4v5Oa98Q45qX9Dc dXA+DWYmiSS1jMI8 lD6jJtLgOhF4HFfyI669 JbCysLWmUsktl6jah1xm tSs6GdD6PARepvBxxJtb CAT2u6CaPr79J23s IHdpZHRoPSIxNSUiIHZh aPnlbh9hlE6oTj2+PGNv dTH2mAQ5kL1lHlEdAwO8 PBvnD200TrOukMSg Injaj5eia0nlbUe5XeQt FERvplBxrKqpIBU0b2Rn Sb65H3PreJpqr5XjZgk3 dr96iZGdf9H1zSV3 G2UeWMTddtyzlCWgwGbg QC6iQVWlkidhMMAoyJ4q GKUiB5p5PcVgCbY1ONsc A7WdkeR6QREghEMc VHzaXBX5H85po3W3BNTg GHLhEIA4aKR1rS6nzTdw bjogbGVmdDsgdmVydGlj APmrZPnuO270QXMk pJleBCTmdV7uVNVaxNAr yOdzAB9vZTVzebdoEpXT Q4AUX06AVBJOE5VUMeUg CZrSPN72U3ImJia9 AFDjeMblXZ6ssNVjGSma Lp4ntHgogOhgUF9wSXXp mxjiGXZegB8zXDCpzYJt lBuzMV1pZOOrvdbc a018PyRqQID1HCVplETq C9QrcW5iGwTcVLCjYZLy I7KikMIlTWybT763RUmw KdK2OVGubyDoJ8Km ZYPrpWqcIbQ5g0H8Qo2g EJ3rUe1kLIM7VS31GL71 nYImz1Q5lHD9E9EbJOPw dlkfkivsjIK3QLLs ZWTshP26uXSrOPixJc9d r6F4y432UGTjBFBhvK03 Of5juAcqROCemQBGbK1n ppqhp3xsnajsTcKu RWXfCOw4MYs0BQZxjJnr WhYzCVI2JiC9IRD5eXGs bM6peDfzsepckW5tRim+ AHOwGXKjqeF3W9My Jys2JVGvxLfvVP8cnXMp GWldAl5lvCrowVjmQR8o LIZmiekwELRiiM2vMHGm oDFihWnvAK9xNOQg yqhrt177WzBmPWN2THBc hUBvH1ZfjI4uHuSbRGAv JTYhY0HeaSXkSDnoM539 JCvaAtF4JQFrdfLd N5RiVMCxaFwuUpS6f0S4 Ud0JEFbYLZ53XD36zCXe b5X7jYB6C2HyCZBludkz lcjkhQX1LCGuKMQd lF03bYPzZFnuTi3hq1S0 h276JDHgIUQtnX76Um2b eXrnNQDxrMBXbI0rylgx q0mxpfjuHjNkMGNe VYt8FOm6OTRajFdxVdIt RUB6UpT0IRY1eZSwwW8s vFqjmnutqO7uAyk+T1A8 V8VqKidrwWG+PC90 JFWfNL93sWOkoKXuk3jg wLc3LoGbVECnPWB4jFyr YHqnt4UrFMXtS36svGPq a1S6WXKoiOmzxVLm LmPfjLC6bN6yLDienqig m9ejkmyuKnafr8raaa54 mW78Q18iPNqlWVLvYCLy LMMqRNEmlOmtvz7g kH4fZb6+QGLfuJV5jAC6 rD9jAnYuUuM2IPqyL202 XbWtpUXoIdyhn8jqn5iz gPp8LzClTRVjllDu sYnmLCB9i1IhHw27M30f IHdpZHRoPSIyMCUiIHZh yTojrv7rrI4rOa3+PC9j l5lldn42nF10tGO+ XIKsBUP6uGwxKHauWFQy aA2pOKrcClV6BBSwEfVz tD77cRNfAJhiCr7icDzo xTqlMI4sFGXoykxw i477UgMgs4irMBAcuFVo OJxjAOA2J48we0K1OAXn ROKnPPK5hPP6xQ5kaWnq bjogbGVmdDsgdmVy eKvhUXhaJJkbI322ZZIl qOmkTrRrtQAcW0lalfQW DS2kGcslwEP+PHRkIHN0 hNopSQzdVBPewC7y XCGnG3k2JpGhMoN1IXvb E4KicrO1TGNipFPnCFNo zFPHjH5fxhlca2mdoyvi FgKgTHKaKMd6FZc7 WMMfwZdjOnMiUWO6GmZ8 BTK1fHSbkC6ijRlavlve zT8bOib+RklOOjwvdGQ+ ZMNyGIO3yScwDWbn PPMxoA6pZZYlX3x7QsUq RhS6MCepH4DykhX4YJYb vPKlIHCiiDEDyN8jissj j7qyqdkcXhRjJVBz HXo5KTw0TIGfsNifBzVq OIA0YvT5XHP4aMWzmB7i qGjfomnnkH5rZml+TVJO OjwvdGQ+PHRkIHN0 nQjqYVenARRkjS9oCIDg C3f9WdTkVuF9GQrxE4Nb kpG0BGFzxZEcSBDfgYCG xA5erbcqb9wnxtru MtJmMOGzEMl0CAk7JEBv tOowXyGoBYR5HhI5VHI9 oTHboC3bvSafjbbsiK0p Oyc+KSU8RYO0JT19 CB30B4YmIkcmrGCfoOZ+ PHRhYmxlIHdpZHRoPScx VEGgOrUbxLqtVJ4dUb3o ZGVyLWNvbGxhcHNl OiB (more content not included)... [facility] Coding Summaryon 08-29-2021 Coding Summary HTMLBase 64 OelrtbmjRYh1oOp+PGhl YWQ+OY7LJEFcH13whAHl hO5MY2nXGY7VOXNJBEBB FE4YES4enBR4GDsuB9If biAv AvoduHKtQG83TVd4YPT9 gIbcSGkcrA3biLBmU1s0 LxHjDD42nF20LHbnOAFr NxI0LtHmgpomqPIw S3fjOuEeaMPmRde+PHRh YmxlIHdpZHRoPScxMDAl EhEchCceTL1gDi6vTLWc LWNvbGxhcHNlOiBj h3boHUHcYAswWN6oiVoc A7RuwOG3DHDic1g6Ce21 dHI+HVDiHTU9cIlyGYmd p620CgPft4vhAXB4 aVNbUPunIMA6J09cx9Z5 LZXkRYZfHJE7mUK9zZ2y rIhnmhgdT7UqjOQsIfT1 ITM3kCUxdZ6jkJok fnsonD0yNyj+L21KRS2I FHQWKD3QPog2W5CuKaol dHI+QI23PVGcIR42wVAv uAFoy3eksIv8KuFn FXNxGOZ6qKofNTvgu2Ep FWQtK77kfXPao4L9RJFb zPeoxUYjCbUfgZX5iK1d LXlxrtpcv6vrbpri Idtir0ytkd58mZ69G58u UEyiJVLbDFA1YVDnUEAb jPakbz9ukP6eMb4+IDxj m2rdx3atqGu5DzUk HEVmjbPphNrqSUU5y1Hx Qx83G4TmpJnll4TeJai6 rp08pVPyd7T9fTP7VXcw HNQwrQ0eLKxhHbD1 XHLoBaHfxW48rXHfQZoa Bt5oyVztmUeqZU3fOOLv mphlYFYktF5gAZYszSHw vTseYP1bVDFngmgu l544ShDbLEZ7ZKTkhJUm V4VgdN7kDcChPPZlPTIl S3YoeURoQUpzN351GYyo XnL3VDQsalXcN5Wk SJMdgEbaGtP5f8P8Mo0R t8VquzncDLA8RStoVCIi NwOwYbIgEwX9I9TqYjo9 LZMmyXskLJ9hX5Fb VCZhqoxzrfbfcYL6TZQg XXVvmG48sFRmIFloJc0d x6K3o397TYXxONWgcA47 Xd1doCqjMWFilGVO xQ7vhfpjv5ktbbmtFwDn VJZrJNn7IEo7EQAdgOcw WaVuNSU0UnG2KES4yXBl uI4ppTowqrijhY1g Oyc+M87lrN5tKMV0CJA1 lrmpDTZgpgIxAN73ZP62 J5TtVzlfkZSkoCQ+PGRp qrAceSriUT7pOcOw e7wmz8VvGRdhI6SbUKAc VHznOky1NFTsAMH3mXC7 pH4wLYKaXQewl1W8gQX0 A9FfgsSsbd3sf6fl WGMyXWqyZ00szHJwg9C8 ECIldGH4CVAjeBxtYpXa hP54Ocl+LWRvrFgbe1Ot Cvtpy2wpp9qwjTq4 IjMwJSIgdmFsaWduPSJ0 s9WpGp25G17tUPghUDLy HUVuCVYjUDQryOyyzr1e tC9iDc0+PGNvbCB3 tIG8sX2hZCXmZeY2RKfm R504TwSgyYCzAsxtm7uc e3csfGo4BfXrQFUbngTp uXieLRY9k3FmUz38 E47jVRlgSEKmVZFuRFSf QGCvnApxaa2huB6tVe2+ OX0ri7brrn13lO22kFL+ ITTaIEC7vDdpANeq FOQgcC7vGVqgOiY0JZHk CzIwnV20yKMcCOubYh1k xBzonYirGP7zYPJtaeux f483JaJig8dtFOKj iGPdOGqlWPH6G26um6I8 OSSaTGWdRIL3pDO3eE6g bGlnbjogbGVmdDsgdmVy rAxgZRmsDLebP084 IHRvcDsnPlBhdGllbnQg AlFoBUr4W0BiMru8FLDl bQzrGY6luZQtBPqqHx8j lDmcxWsrAV1zXDPi havrh718MsVjr4dhSWBp uQUjBTsaYUR7J32vw9C8 ZJWwXPQvDLU4fKA7mJ4r bGlnbjogbGVmdDsg elApnBizNYqlFLrvD928 IHRvcDsnPkJpcnRoIERh uKJ6VX50NE38eHQer7Q7 vZG5E5StKYBbpuki htgbhYB1IBQcAVRleT51 Ib6yeKacGg7sMKNnEJY6 WEDqgQGsS6XydT6hRyDg LRNqTWEnO1JwkDMe CKvsL573WEzsYbK0QNNe ytVaD5RhPCKhdHelClG0 y4V6Zk5RY7N0YM96WG02 oQFjn6K6vDQ3X6Rb MTIgtlfnidbdgLS0SRLl NQHylN60Le2wfPehAg6m ZNMuGKT5ERCztKLvK6Be mK3lRhUaZZKvVXOg Q2KeiHZzMRlfS084DNdw GwP5VFWknsKuO4HhYMQr aOjkKzH0q2J0Ss7YQEc5 BE08CI59xWXzz9V8 mTV0G7MwBIUmbauhjuao zZI1VDLzAFArbL07Qo2l bIeiKm7tVAXsCOJ9TPFi vQXnJ1EyuZ3eQbTm IKZsJIRtU7UbiAEnTAfl S193HYxzScL2KIIksnRk L6EzMXConHvfToP3v2L1 Cv2OFVNeGJ15INL1 wGS5OQ56YS89I1RgAegi dGFibGU+PHRhYmxlIHdp ZHRoPScxMDAlJyBzdHls AI0wNw7kBMVuJTIk uHypyAInQoBsa3fvCIQz SSqmBY3glLkzJ8DjuNE5 WOIhv8d6Dy20J84hK3Kg dXA+RIZbrLT9aNP2 qF1qToEkQoW0ZGxqF017 AmFfdDGdAvqbu4ctn1re eJd4WqD9ZKScgxNqvAie QQO8w4LcFm34U59l IHdpZHRoPSIxNSUiIHZh bXahfz2uqX8mNy2+PGNv aOF5xWV7rF3aKbWaAxN5 UHzbL155KuGyhEUy Mealb7iuh2eqxKf1ScNi QNMloyRfeNmbXXC8n5Gl Ty84Z6BqoQkrw0IiZpg9 ty16cCMuu0I1rAD5 B3HuRXRlfmhlxNKxgMil EZ4uLSCwryoiSVPcnD1i ESZqA1g2OySdFzE7XLhn J1TlfuC8MAFlzDZq BAtrUWK6X94rj9P6OPMp KZPrXVS5pBX0pH4zwFiq bjogbGVmdDsgdmVydGlj GRjpKBlnL826WRWk kGjdFGWajI8aTMGxqYJj wRfyJB4sFBRczmlxFnKU X4NZB24CCKWLC9UGKqQk HEzWNC38X9PfTjn8 FVSekHfzMX3kmXYeAUgl Lu0xsPnaxGygJW2rKLAv xxmxCKAwuP8zDGFsgPXd iMbiYL3kFGVgroef v586VnArDRS6MIPysJTg A1CseY5nSfZmWDImCTJe C5SerCZuVNtpI478KSpk KoG1XRMlmlZkR8Ur VCMqkDrfHaS7h0N5Yc8x IW1tCp4tTVU0SJ36BK81 sTVyc6X8jZT8U9CaBMYa zyxsarlwiJG4NTQd ZYLeiG70pPXtNAjgSk2b b4N5g070ODHcIQLpjH05 Fh2caPpsHVOrvBBWfC6b qcjuy4wquxxjRdQq PTVcDTo2WCq9IYJmoFeu RuEmBEH2XhO3WTN1zFSc zU7xcEspdfuvpH3cEnn+ GAYhDSTszlY9X8Oc Dfm9BFCqcDaaAV4xwDHm ZNshFl4bwJstyNmqVG5z YRAobqfkUFFcbX7rOWZh bXXxeSabIJ4pWNMb owjbl091EqQxICC8MALn vHPcQ9NpwB0vSnYqYIMk UEHxL1PccEYlSNjcU709 IFuvXkZ8ZLVjoqLc O0OqNZGzlYbpSeP8b5Z0 Tt8XKXwXDI85XP66hVEm a1E5tXL5I2FoIJJqkuxt weeypGL7TNZrSJBe dJ84iDVfJWxsDx2fn1Z3 g173VTLxLSHeiL07Ra9r dShxMJYwwPDHcJ2toonp y4qxyyyiUuOxTAOh CWn7LVt5GNFacOzxOeCu ZOL5XpK9TYM1eIYspE8o uFnioppbqF3kKdf+T1A8 N3XkHpdgjRG+PC90 FSZeNH78aTHzaURuy5pf dIa1OhBxMGKfTPA5sJgj EAhyh6WaOFOqD57kyCHb y0B1KADajRidqCWs TrIaxRH1kS5aVOcigmgw g0tdemrkNntyj8vktd58 nA33Z38hLNwrJRZqKJUv XADdXEFozNsynx0v iZ5jYj7+RMOusNI8iGX0 gW3nFzJnJnD8ABnaP950 FzMfmYJzSvyuj1fyr8sc rBh5GtLlKLZsufEi pQzvZKK0f9IsPf32E43v IHdpZHRoPSIyMCUiIHZh lLonce3zaL8qLn3+PC9j s8nhtd82nV18iOW+ ETYdWPN9pLjbIAjsDQNj yO9iAJeyDtG2VPNdGmDb jS67iLBkUFgeSo1nxEsy iRykTC8gIAXouprr k495NbKrj7eeXPBizWSo VYrmWYK1O88cb3K4UPKj DZHsMTA8sZS0hU2bzBtr bjogbGVmdDsgdmVy dPsfSXzbXGaoB954CDSd gYkkVgPoaAPrC7bpjyRC XF1wXkoeiFB+PHRkIHN0 kLceSPwuQMYwrI4f VYGcK9d2ZdJrKwV7OLky C2VintN1ACEfjIZyLHLh dVJElF5dlxohb1xivsgv DuQxSDSfSPy0HAp2 PZKfkPiaYhKhBES7DxA1 KJY9aPEfeV4czRfaaept zD7nEhi+RklOOjwvdGQ+ NGEfQLX4gJtxFWqt DCFycB6wTNBxJ3e3XpAb YbO5NXyzF3DgpiP3BCSu xBPbFFKvoUVVmK1tespa d7xfigxnXtQmTUKj JIb0FFv1MFHnoUfePeLq TCW5PhX3PWO8dYSwfI5i vKdmrjuppX1zBpw+TVJO OjwvdGQ+PHRkIHN0 yNfwRTomVHCwkO0pGTLi I7s4ReIdEzH8FAyqS5Qc mjA0TSSmbUVrKPOyjBCC sK4vohxto5fxntnb AjVfENSnJZi3TQk7QIWv sNhiCfLnLPR7FmK7NXG2 tFIloP3mdElhttexmU8b Oyc+YKQ9LZX8DA46 SF54N4PtCzfbcOEysON+ PHRhYmxlIHdpZHRoPScx RCAfTyZhaLiwVY9mIj4o ZGVyLWNvbGxhcHNl OiB (more content not included)... [facility] Provider [place] 08-29-2021 Provider Orders [id number] #1.00OTGTIFF [facility] Rad - MRI Reporton Rad - MRI Report [id number] #1.00OTGTIFF [facility] MRA Head w/o Contraston 08-10 MRA Head w/o Contrast MRA HEAD WITHOUT CONTRAST; 08/27/2021 2:19 PM EDT Clinical History:LOSS OF BALANCE Comparison: None available . Sequences: Axially acquired 3-D gradient echo series for the purposes of heqb-si-cktpja MRA. From this data set multiple volumetric [...] Deshpande MD 08/28/21 7:28 am Technologist: JERRI [facility] MRI Brain w/o Contraston MRI Brain w/o Contrast Begin Addendu m #1 Addendum: Correlated with MRA same date Final Dictated by: Roas Deshpande MD Dictated DT/TM: 08/28/21 7:28 Signed [...] MD 08/27/21 2:50 pm Technologist: JERRI Self [facility] [place] MRI Spine Cervical w/o Contr indu 08-27-2021 [...] Deshpande MD 08/28/21 7:38 am Technologist: JERRI [facility] Physical Therapy Noteon 07-12 Physical Therapy Note [id number] #1.00OTGTIFF [facility] Provider [place] 07-31-2021 Provider Orders [id number] #1.00OTGTIFF [facility] Provider [place] 06-29-2021 Provider Orders [id number] [facility] Coding Summary HTMLBase 64 VdpccqhaJIu3rSo+PGhl YWQ+UN5EQXYkY16sxZMf vT5LY9aJQC2PJMDVEUTA KZ1CLT7sbII5QKifM3Lr biAv YjjnnVGoCI44DKz0AMA1 zCgkWIonyT0jqDVyZ0p7 NtTgNB73aQ06NFhnRGMv RnO2NdTialkjoTGl S0iyRwLndKYeYkt+PHRh YmxlIHdpZHRoPScxMDAl EpRciOxgZW5eHj6fEBPl LWNvbGxhcHNlOiBj d2khZBDgJUhnCL8scFyi U3AcgLW3IZGmm5j3Vu42 dHI+FEVjJFF6zQqwOFjv p556YiQvd7dvXPK3 eUEqFDpsOTV7U43jc1Y7 CMQmDJXzONK4rNJ1iH9g qObaakbwV4LiiFBeIkF0 QZM3nLCuvU4puAfp cojkrS0sGyu+A09SKG9L OVDGMC3NCei8U3XyZfvk dHI+HA43TIMpYS54gLNo cAVbg0bikTb3UiZn CLIxLGR3iIjeDIdmr6Cv EKGkN46lsGVyl4C9GCVy wWvssGSwTuImePS2gG2a LIhjapdsj3eifhgt Ybqzo5ycjk27zT02Q95l QVovJPAjDDR2RWBfZQFt mSrnsh0ttD6fUh2+IDxj p2liw7xnfTi3PzIy VXWbbwMwuCzhEDC2u5Yg Vx20D0XgmXxyy2PyRds7 md20cNGfp9O4vAL5XQrm FTWsnN5uVEsqOcW8 IMBoQmKxiL70iVUiUQcx Wd7rwFjxcIhpKM4xLNVb urwhKDGwsN5cLHVkxIIg hMkuGY7yNAZvzvor k263GuVzIVJ3NNQgjSLs W1LhjP7gJvAhEZGxSADg G2SydKSmOEmpD089RYan QaA9DARqacKhI9Bt UBDzkLlvVrM4k1N0Bv9Q f9LbmcvpHRO9BMqzEAO2 CmE9MhDsSyJ6N7KvLvo9 TTHvwXphGJ7wG1Fq ZWZptwpsmviwvAC3SYSi SOGvvY31tSXtQQjbSs8f y9W7j643BVZnBHEmgQ98 Lg0obFliMJNadYWG rG8ccvhvk1bbgbjcOdKn JWKzJRj7PZg1XRZrzZhd RmGzERV2WzZ0KWN1mYIj qF0xgRfwoezatO9r Oyc+K03tjX1tEMK5KAI4 nogrIGDbuiIcYZ74GG69 Z0PsMycwoDOwaLZ+PGRp gqMkmQywUR1kLgWc m4aje4ArZMheO3KaWAWl UZjnPky6ANUfRCG0nBT4 mV1zFVAfNPgwi1M7sUJ4 U3VmxhXaad5gk7lg VKBbVXamX17csJPws4E3 WQUzgIJ2DIWvmEtxGkJm nS80Yuj+HCOjkSput2Sz Kzyzb4jqb0cxwNw9 IjMwJSIgdmFsaWduPSJ0 e4AoEb69X88yMIcfQKMu BDAgMVUwTYAouSvrju6j sA5bQm5+PGNvbCB3 mNY6yW9eBHVmUvG8UUjw N065YnJkyQDpNtvqo0xv q3xpuJf2OiZvFLGlqdHd gBfaTWA1h9XeTo07 A52xMGrmPRRiKESmINYt SREceGbjeb8uxF3mIu4+ FS9ug2crln39nP39gHW+ BECkAPU3fIkzXKyr RYQypV4dFYckCuO0KHDg DqTrsV68vZAuNQmqQu0s eLtanPghWT0sOWIzkdwi w513GvQws7eyBPZq yUVkSYhsQAJ2Q59li5T0 NCRpKPKwYII8rDZ6xG8u bGlnbjogbGVmdDsgdmVy oLfbHLijOAefR502 IHRvcDsnPlBhdGllbnQg HjBaJWy7N0MgKqb2WHAg bXubQQ9gqUMcZJmiDp4u tAyhpFcvGH1vUGJh rtrhy689LoIsz8fjQIIn lYAlZKfeHPN4H97mz4E7 KTFgRYLqCQB7sRB3bU8f bGlnbjogbGVmdDsg raBcaLbpMUhoXQppE165 IHRvcDsnPkJpcnRoIERh zDD8DX90AT21bUFib5G4 kIR0O3FmHFFfmksn ieeqxIS9QCYyIHAesC43 Rs3kfMkuKn2tLICtJRQ6 MYMayWDxK0IniV2zHaZs EIMxDYYbL4JfbOMi ADsvQ392HAmbSfK1GHDa spVoN7WbIJCgkYqoUjK6 u3M4Vc9JI8T7GP44VY37 xYKms5T2lHM6F2Gs HCErekovbeuhaTX6AIId ZIKzhO34Kt6tkGygZh7y DWXbZQU6PQAkuDArW8Nb pD6uKjGgQPJtHOSo I5XhdVNrSWitB521AIjb EhL9UGZhmcBcO2NxPYLf kJygKeP0t2O0Bb1JRQs6 HD73XL76qFTeb6A0 xRK1R8YvOIHcedryuzxj eKP5GIUiBRKfmP99Dd7u zAriIa3kFLIcTXB1ROIu fRFsO7DwzG5tMxSn ZDFfFMGfP6QvhQXmQAze T776FMdlUtT5KGKoijZt G1VbCOEzlPlrRkS9x4M0 Ph6XDVTgMR08QHQ8 dQK4SY40FN76P7HfCjvo dGFibGU+PHRhYmxlIHdp ZHRoPScxMDAlJyBzdHls IX8sIp2qWWIuCITb dGvzzUSbOiSzr8poPXLv BUbuKU5xaSwvQ1QdmYI9 DQGtt6s3At10F83eA1Hw dXA+TAUmtJU8tDD6 oZ8hZaJvNvL2SQyyW634 XtUwbISvVjwto2tkr6ay kHz4HeW1NFJqhkTbwAbd JRQ1r7DfLg71M66c IHdpZHRoPSIxNSUiIHZh jLyjad5dfO0dOf3+PGNv lAE7fHH4mK3oBeZxNzD2 ZDktG697MjKlcYCu Hoofa5ypu9dodKv2QrSh ESGffqIvkDciWWH7u2Xn Vr44V0KfmSgqz1YqKem1 ef14xETwd4L8uXK1 V8UqWENfydjdjZFelMao ZS8wPGVciikhZSUuxD0g QVPyJ1l7NiIxIfS5EWtf J5TsacX8FVXrvGHc OWqiWQI4E79ad5Q0TMWe DNWrWKS6iFW6pD6ljEdf bjogbGVmdDsgdmVydGlj XDdoXUgnA643ZVWi wQzyWOQfnV7uXBCbhBWz qSplOF0vIQBhakdoKcOK R5MOQ15SKTYSV1DHBeGh GQmRNS38G4GsImi5 MSZllCtcVY5lhJZrAPsv Xc2xnLeamVviIW9wGVJz ocowXRFngN6oBYFukEWz cQlaBH8oMJHbvttd w714EuIrXNM8HQJjsMOj T7MdkZ1jUgSrQKYsPLVf F0IvjLOwJXtsT841KEoi EuZ2FDXfjjTcE5Cg YTCpvJvhOxT5x9N8Id2f QB2mSw6fJVD8RJ39XR60 wNGyd3O1sCE4L3FrZTAv pwrfchuyoDT2KUCd GPZgfN72qIRtMXuqNn4k j0V9i567HIJtBXXlbE48 Qn0eqKewPVBviLMMwR3e buegb2qduibaBaVr KUAzQRr4GTc1TDQpgGld QaBiQDD2XpV9LBZ7wRHc jM6lhLrdgufchT0zDjw+ OIYqGWQuggG6B2Fe Knq5RDMfaSceJD2usKMr WZydVn2nmNkvsVxmOZ4p GUKdvvcwQCVmfT5eDGGi yWOwdIboWG4sVGDu cqtgg288NbNvVQX3OYTj nULkT1RajK3fWuToMGCq CSRtB9BbeNXbDAzdE696 NGpwGkF1FVWqlcGn J6IkOLFksFdcXpI6x2Y7 Sa4HTOrCNH13AG74mWBt y2C8zJC4L7ZvAIVgfwsm trggdIA7DVMuVAXp zQ07iWZtPLfgDg1ah0Z5 d363DSRdHXTeuH42Ts2g cXkrHVZbtXZQoD8fdvnk j5ulxwffIiCvYVEx EVh4MJp1YBBktRlmQdPz AFC5NoW4CES7nOBekJ2a lOvkuxqsqG0zNke+T1A8 L6XwJmhlsFK+PC90 WWTvSR92gYZezTInl7pv mMk6RqFdVBTkHPC3cHro KAswm0OoJZWtI86mcUZn r5E6OCQiyXnceLBq VcQfmDB3uD8mVNjleiwd m1unjnsiDdbkv7kimo84 cY20S18nWTcdLQJhVKVp ENByEQIbeXmqou1p kQ6oJs7+ZNQllAQ4dBZ0 vV6rOdAqYvF8JRpeQ134 IoDtjXRyXjrvd0jrj6ef oSz6TbEiKXIanhJb hXtuKEG4e9HmEu68G99i IHdpZHRoPSIyMCUiIHZh lRunlq0lkA9tGh1+PC9j o0ptjl90aC88bJA+ ONZdOFI5fAjqACifNOMh sX5cFSdbNbS7JUUxHrPs fK93rJXcGJtbBq6sjOly nLzgFT9fHULnqjxh v722ThGso4ywBNLgpUSn TUyhWZI3L03rt2F5UNLb PLHeLVE8lZH3xG9sxKyn bjogbGVmdDsgdmVy rLruZZjrSTkwO942JFDn uQkvZkXcsRMkP8akltYJ WV1lJgmjkLH+PHRkIHN0 lLrwSJasKLIgiM4g CZDqU3y2RlEjQkL4CVsz V2BhvjH6DSDnnKPjTRZb fFXZzS3fpggyf4dqbffg PsBoLLMtJMd4KIx4 XXUtpQypFbAgRVK3OkT1 ULR3iBJljQ3dzUhmnyat bF7lPnt+RklOOjwvdGQ+ XRDySMM3uKraQXge VGFhsK9fVMZzB5s2RsMg LbS4FHlgG9OefsE7DTLm mUOmCOJpfUSIrW4heqvq x9qqdcvoSpInKOYh GKc4BPc4FQAmeYvoRbMg XIZ9RxW2RBQ9nTBqwI3u sLwgqaxbpX4sGep+TVJO OjwvdGQ+PHRkIHN0 gWgzWPknXOJprF2xBFKl U2t0CdRlQjN6NQseX5Te uhP8AOPkaDWiZLVrbYOL jF6pevuty2nmdvfs YxVoSUIgTAg3ENs0FCUh fXnxEpFdPWF3LvZ4KJB0 cIHyeT0bcFqfpmkfyE8l Oyc+UJY4VLE8MR81 ZX84C0DuGfpzrUWnlND+ PHRhYmxlIHdpZHRoPScx PZOuAoVtuKbrIT8zZs4b ZGVyLWNvbGxhcHNl OiB (more content not included)... Normal [facility] Provider Orderson 06-25-2021 Provider Orders [id number] #[id number] Normal [facility] .Auto Diff 1on 06-22-2021 Auto [place] % 10 % Normal 12 [facility] Comment on above: Performed By: #### 1 [id number], [id number], [id number] ####[facility] (DEFAULT)[address] [place] [address] Baso Abs# 0.2 x10 Normal 0.0-0.2 [facility] Comment on above: Performed By: #### 1 [id number], [id number], [id number] ####[facility] (DEFAULT)[address] [place] [address] 47962 Basophils/100 WBC (Bld) 1.9 % Normal 0.2-2.0 [facility] Comment on above: Performed By: #### 1 [id number], [id number], [id number] ####[facility] (DEFAULT)[address] [place] [address] 24511 Eos Abs# 0.4 x10 Normal 0.0-0.4 [facility] Comment on above: Performed By: #### 1 [id number], [id number], [id number] ####[facility] (DEFAULT)[address] [place] [address] 03713 Eosinophils/100 WBC (Bld) 4.7 % High 0.9-4.0 [facility] Comment on above: Performed By: #### 1 [id number], [id number], [id number] ####[facility] (DEFAULT)[address] [place] [address] 94511 Lymph Abs# 2.9 x10 Normal 1.3-2.9 [facility] Comment on above: Performed By: #### 1 [id number], [id number], [id number] ####[facility] (DEFAULT)[address] [place] [address] 13783 Lymphocytes/100 WBC (Bld) 33 % Normal 14-48 [facility] Comment on above: Performed By: #### 1 [id number], [id number], [id number] ####[facility] (DEFAULT)[address] [place] [address] [place] Abs# 0.9 x10 High 0.0-0.8 [facility] Comment on above: Performed By: #### 1 [id number], [id number], [id number] ####[facility] (DEFAULT)[address] [place] [address] Neut Abs# 4.6 x10 Normal 1.5-9.2 [facility] Comment on above: Performed By: #### 1 [id number], [id number], [id number] ####[facility] (DEFAULT)[address] [place] [address] Neutrophils/100 WBC (Bld) 50 % Normal 44-88 [facility] Comment on above: Performed By: #### 1 [id number], [id number], [id number] ####[facility] (DEFAULT)[address] [place] [address] CBC w/ Auto Diffon 1 Erythrocyte distribution width (RBC) [Ratio] 13.2 % Normal 11.5-15.0 [facility] Comment on above: Performed By: #### 1 [id number], [id number], [id number] ####[facility] (DEFAULT)[address] [place] [address] Hematocrit (Bld) [Volume fraction] 45.3 % Normal 34.8-51.9 [facility] Comment on above: Performed By: #### 1 [id number], [id number], [id number] ####[facility] (DEFAULT)[address] [place] [address] Hemoglobin (Bld) [Mass/Vol] 14.9 g/dL Normal 11.8-17.7 [facility] Comment on above: Performed By: #### 1 [id number], [id number], [id number] ####[facility] (DEFAULT)[address] [place] [address] Instr WBC 9.0 x10 Invalid Interpretation Code [facility] Comment on above: Performed By: #### 1 [id number], [id number], [id number] ####[facility] (DEFAULT)[address] [place] [address] Man Diff? Auto Normal [facility] Comment on above: Performed By: #### 1 [id number], [id number], [id number] ####[facility] (DEFAULT)[address] [place] [address] MCH (RBC) [Entitic mass] 31 pg Normal 24-34 [facility] Comment on above: Performed By: #### 1 [id number], 9307920, [id number] ####[facility] (DEFAULT)[address] [place] [address] MCHC (RBC) [Mass/Vol] 33 g/dL Normal 26-37 [facility] Comment on above: Performed By: #### 1 [id number], [id number], [id number] ####[facility] (DEFAULT)[address] [place] [address] MCV (RBC) [Entitic vol] 95 fL Normal 81-100 [facility] Comment on above: Performed By: #### 1 [id number], [id number], [id number] ####[facility] (DEFAULT)[address] [place] [address] Platelet 295 x10 Normal 138-427 [facility] Comment on above: Performed By: #### 1 [id number], [id number], [id number] ####[facility] (DEFAULT)[address] [place] [address] Platelet mean volume (Bld) [Entitic vol] 9.1 fL Normal 6.3-10.2 [facility] Comment on above: Performed By: #### 1 [id number], [id number], [id number] ####[facility] (DEFAULT)[address] [place] [address] RBC 4.78 x10 Normal 3.70-5.30 [facility] Comment on above: Performed By: #### 1 [id number], [id number], [id number] ####[facility] (DEFAULT)[address] [place] [address] 33996 WBC 9.0 x10 Normal 3.5-10.5 [facility] Comment on above: Performed By: #### 1 [id number], [id number], [id number] ####[facility] (DEFAULT)[address] [place] [address] 01638 TSH w/ Reflex to FT4on 06-22 TSH Qn 2.41 m[IU]/L Normal 0.45-5.33 [facility] Comment on above: Result Comment: Gene ral Population (males and non- females, aged 21-88) 0.45 - 5.33 Females, 1st Trimester 0.05 - 3.70 Females, 2nd Trimester 0.31 - 4.35 Females, 3rd Trimester 0.41 - 5.18 Performed By: #### 1 [id number], [id number], [id number] ####[facility] (DEFAULT)[address] [place] [address] 67683 US Carotid Duplex Bilateralo n 06-22-2021 [place] Carotid Duplex Bilateral DUPLEX ULTRASOUND EXAMINATION OF THE CAROTID ARTERIES. COMPARISON: None. HISTORY / INDICATIONS: Evaluate for carotid stenosis TECHNIQUE: Bilateral common carotid arteries, extracranial internal and external carotid arteries are evaluated with hogan-scale imaging, color Doppler, and spectral analysis according to a standard protocol. ICA-CCA ratios are calculated with international representative peak-systolic velocities and recorded. Vertebral arteries [...] Jules Tilley 06/22/21 2:18 pm Technologist: DIANE [facility] XR Chest 2 Viewson XR Chest 2 [...] MD 06/22/21 3:55 pm Technologist: SE KATHY [facility] Coding Summaryon 05-23-2021 Coding Summary HTMLBase 64 KxigkicpGSd7pGr+PGhl YWQ+XU8UXZLdI68jnTCz qS7RS4hKCR6YJMNNGDMS UW3FZQ0qeHL5QTcbK5Dv biAv ZrvlrWCsJG18GRs4ISZ8 tTlvEUfeqW6znNGpR8c2 TbZiAI06eR93HEkyKAYw ZxT9HoYotsxxcKXo H4flGyXecZSzWjj+PHRh YmxlIHdpZHRoPScxMDAl IlRtlOtcOU0ySd3nJOOc LWNvbGxhcHNlOiBj n6tyRMXvIIotTL5wdLwa W6CcaPT7OXLdd6e4Ly92 dHI+FTYpKDJ8nTbtFOho c643ZcPrj5bvEUT6 lAThHKgbRSX9M22ee6R5 JENhCHBrIVJ7pYX8qO9z iJwzxiglY7EkkHIqVdI8 FRE7wCUliO6drDyo tplriJ3xWiv+C88DMJ3C VWPYTO0EStl1R5HeVbmd dHI+ZG75CCByCR34fAWi rZQun5ffcHm7DeKu PVFuLOH6wSdpTAngo4Xs AWHbV53ypZSsb7G7JNHy lNsdbQEqSeOltAJ3iG6e OKgwgbfwc2jdkdne Sekxt1eglo71dY85M26t ZDsmFEHgKVD9FGPlXFLl eYmrzw9xbD4jKd1+IDxj x4fye2ljxLj5NaBo AMUajaIyyTjzWIT8x6Ie Tp09H2IurBodh4CyIum9 vg93yIHss8L0yRA7DWkf FCFtdA1tSExmAyI4 STLmJtZndY24xVAvCHlp Ic8ynWhspQlnMK3wYJZm bdvrDMHrvY0iKRMiyLRy iQzqUA7qNPVotjsy p968WwBhDYP1XVOylLHp Y0MncC1eYcWaDNXsHBWb M6SqgPNrMZodK194WEtg TaK9TMTphcEtC4Tl DFNlxVkrZiP9p1T9Xp3E a0HirpryOTY5AAlkLHY1 TmN3QwQmFoC6T8LjQij2 QLVeaHdyDJ9iD3Ik PEXvjvbejgxyjHJ7QSKa BLIcfO75gBUeRCenSe2a y9J5g613SHZhWDQxaQ29 No6bfEkoHZKfzZVS xN4toitih5wazjsaXtMi AOBiBPp9MTf6TUTazVgf ZsTwHXF1HrN5ILV6kGVf rY0ffNoahdglgQ3j Oyc+X29ujF7nSFJ2RWL8 flitHSCdeyKyNA89DL48 B6XcFvjgaZLldJT+PGRp orFphLifEO3gCvZr j8bxr5AbKUxgI0CzNWPh YTnsTli6RQMcXWY4fHH5 sK7lJRYjEEqjg6X7xKL1 C1LobeKieu4zw2oe ALQcHWqeA80ojCFzq0V5 AOMkaHQ4WSWsiMyfSvTk tF92Moa+TDYpfWmit4Zk Logdc2xil3shmBd7 IjMwJSIgdmFsaWduPSJ0 k3JnZz74N56iBGakOLLk SRDtZIIiYTZhsVddmp4f eY5kWq9+PGNvbCB3 aIK8yO1wHCZkGnX9FAmt K012XtHycQNmMdcfy6ip n5knmHu1CgXtBYNcxoZj hGviAFO4c8KuPl25 Y51aMEphFYWbEUVhRVTj HXPuoBjidd1fkM7vOg9+ NG7tt5hixy13vT18yIG+ LULzBMV8rZqyCQkz AUDahE1zGBsvIyL6JYId MgPlfR22kQUsJVpoJu1k zQmkfVvjTU4gUTBtlicn z861WcUda1fqYPQf fFPwSOyhYMA9A67gh8V1 LCVtXEUsURY5rFY4cY6j bGlnbjogbGVmdDsgdmVy rKjuANiuMAhrB734 IHRvcDsnPlBhdGllbnQg BoShWHp1J2WxNkx2MJFv sRnqHC0ffSLaJYqkGq8r uThitDpgWW6iXELp antip780GcSpk6dfBBJp sCWcRXqbCZC7D95de8W2 BGIfKXDmOES1dSN1sK1m bGlnbjogbGVmdDsg mmTrrPyfDBpxYKzhO329 IHRvcDsnPkJpcnRoIERh tAI7RS01HC39vUUjj3P4 oZN2N5EwCQYnpvce xdnrwSP1ALMhBVLjzB44 Hn7mnEjkZu1nPSYdRZP9 UBYrtFMfN0UcrG2gGtJy IKDlNXIuR3EroYWk WNkoH634RDmfNzG9JNEt zjGvN8TiZOEhkJroGuW5 j8R3Oc8UG5C1CS78GG44 xWYzp7G4wUA7X8Tp YEJjwmcduclytET0TUJv MCMutE68Ce6egLtwAl9c SKKxJKF5MIDodKFkX3Bt yV3hXlApQCCiZPXv D3PjhYCoOUenO873BDge YoF5UNKpjoKwU2YiKVHf eEpfDpW9h5M4Ud5UMPp2 JC27VD56sLLat0C1 pLC6A4GlSFEkntwjhtxg zDY6YSYxMKRkgN46Cq2l kLiqAv0nNPFaUQR8IAXt eHEvY3TlnE8bFwHh HXHxRNLsW7RgsUHnMUip S451XKveIeU8LMOqolKb L9TcIPGtfTtaWvK3t8W0 Sc9PUYZwYD70JJN3 pXD1TN91JT88Q6KqXfmh dGFibGU+PHRhYmxlIHdp ZHRoPScxMDAlJyBzdHls FF2gDv4kBLGaZMEg kCacsLXhUrZnb0qnTDOl CEmmOF4huVkzO8FrtWV7 RLRvo9l5Ak28G99eD0Qm dXA+FBKdtWG8lRV9 rE9lYrXmEqF4DDmuJ138 PoFqgQXqTtzxm6ugh8hg wXs5TeX3LWTvbhStmBap TKD2z4JrBk63R16g IHdpZHRoPSIxNSUiIHZh hMiops6zyK1vDc3+PGNv wUE1vQP1pY6lBfLqEjJ5 LTcsM597KbScaMKv Bjfyi0oqy2nvhOz2LqUh ICNokyNinVlqYNW1l8Jv Lc12D5YdrMqoq3OkOal8 sz00uBLtz9R5vDL7 I5AmPGHiiuhqbAVjsLcu BH0mZGAeeiciZYJotG3y FPLaP1v6ZeMyZlJ1GRtm B8TdhkF0SVIqwWLe FKxjTPN5R95oc2Y1GZBj ILTzTNX6rEE9gY0maDyd bjogbGVmdDsgdmVydGlj HWdjKAznA569SMOz sHkyBARsrW6yOHHwvRWn qJudTY8dIMUtvdxyUnKY R2EHP59SLVQVE5FEOaUr JBzHTR58K6PyUgs7 JTYeaWbrWP0hbEAbAOsh Zo1caWwbzYwiSR7rJPAd ypfwNIPddB9jIIMdgFSf tOziCT0xIGXctfpd f625NfGoFAB6VKGerVRm A4YmkQ2xJgGuIEKwUUBq U3EbcNHgJCsrS439ABbn ApA8CIKmcyYoJ8Vm DJAjhIraPeY4m5F4No9k PZ4tSk8iCFA9RK18XU57 wZMrz9P3dLL9L1HhOVYc jzuekaxhyON4UTOd KHAhqD05dMDuVOgiEy2d p0Q5g426XTIyHSAjzJ54 Yi4qtHzuXVJbfFVIsM8c zxkoe5slhwdxWtQd ZFGzOFz5WPi5VXIivUdl AlGuPZW5TxY5PTH2jLHx dI9pwGvvsjcvaZ3fCir+ LJYzYTIhepQ8P9Mo Xlc7LHFdcRptSA9nuVNy UMhnEt8aiYyesIwgEX0j MVEvuleaGCCghT1kWZEw vKVaqRneLM0pQVGl rxjjb804TuNsBYG8GZXm lWNfJ6AolG4hYrIiHDPq GYQpF4JmsDJqZGqwF813 YYonJbI6SNGsspVw H8ChWVMjfFgcNcN2d0F2 Sj8YBBwQGK16YH35oZAt g7S6kNL8J0XbQDXnchws ywazlER9GRBaYMSk oL55jZJkRSaeWl3di2H4 t915SVIpBICkdD04Ht8o mQjaKYMjdGHTnK2jvody n5qeeztyEtRgRVXm RDd8LWl7KWLntCcdPuTn XOF2UaR2QHU3qEHejD3n uEtpyknfkI8yPiu+UmVj wITxeH3iBK62vYCo wHsrqnG5D3ZkOptrfET+ UE19SSUpAZ05qBLubLNn q7jkxOt6TeLaNIXfAKM2 hWloJRxns3KnNREg D77plGRvc7G1RAJphVwn dNJdKiLucUL6lD3vGZgf beteu3rsngvlJefuj7pk ux93zJ02R77fWZbv ZHRoPSIzMCUiIHZhbGln nv6npG4nQq5+PGNvbCB3 gZV9tO7gRsVeOpN8YKcl P440TwUusXUtEkar b6cis0piiAl8HlKuHEMv diSwoIiwYPR0a3JjWt08 J12tUWhqJTBkJDIdMIZu YOQvpNidrq3hvS3h Ii8+UK8az1cxln58jF90 dHI+HJVqOHF1kYzqNLyl ZXJhtI3pDRvwBvI6BRQg BmOuuG21xCMvKJnz Vd1qeTweiVrrWX4bQMZa bboav758HgRqm1mmQZBf tCKsWDsiNSI7G96ph9Q6 CKMvMSNuIQN8mSZ9 hX4ogOxzlfhauGPwrLxg zhSuoOxdFOuzUBulP180 VXXqeQefBbVvkMHaI2kc kwRJIC0mRovznNT+ BWKmUAT0cPutWIhvSDWq gV2gJPCmE6n6TeSmNzO9 TEysD1HhwpZ9HAJtbZUt OUSjeBKZyN6mbvlj w3pbuyzeEeHxJACjVYu3 YRu2ZLGpoFwuUfVjOYB2 TsY8YGB6wAEekS0xgLcr veonyA5mWmq+RklO OjwvdGQ+HTDuQRU7kPtv OOjiIGLqgQ0lNMQhZ2x1 UsLhLtC8QFcqI1BtgdX6 IGJvbGQgMTBwdCBU dM1wvnczi6fxeoxyToGv EGTtEXq5AIp1VHGyrJsx FuFgZNK9XnH0TBX1zZBy fR0jpMmmdntlrO8i Oyc+TVJOOjwvdGQ+PHRk BJY1kHpkYVknMPUfnI0w DSVmT0s4YoLbRkA7SCfr I2OofwW0SUVvyZRf SELvgCZTiC2wyykwa2su zolaKlHwRSZoGRz8VVl4 SUIniJnwRwMaIPZ7KnX0 KBZ9dFAlgO0ydZvu odpfxR8fOmq+XPL8VGX4 PU35ER46V4YqWhtitCIj bGU+PHRhYmxlIHdpZHRo PScxMDAlJyBzdHls ZT0 (more content not included)... [facility] Provider Orderson 05-17-2021 Provider Orders [id number] #[id number] [facility] Coding Summaryon 04-27-2021 Coding Summary HTMLBase 64 QfbbflxxYQs1aLb+PGhl YWQ+HS8YTIQiF82alCFc eH9CG1rJRW9CXZNDORLK TH4SJP5wiGD5LCviY7En biAv XglszCWsMW41NBp3NVS5 sQxoRRjtfB2jgEPdP0b5 LwIfRA44sW96CTwnNBUn ViQ8BzOwhvndkUHc W9wvAyXdrYWsKwi+PHRh YmxlIHdpZHRoPScxMDAl WmTyaZocGW0mRe8pWQOt LWNvbGxhcHNlOiBj l0gjSWMgOHuuGW4seFwt Q5OxzQU5NFSzm4h1Yy37 dHI+YGWpUEJ4wLnvASwy p176AoUnc1ylRGF9 jONoQJqjBIO0E00bg2I4 ANYcVINoUPU8eHN1rN4j hFyrsaguZ8XueIOeIrN5 MOY1sLXnuA3psAca mjefsU8dRfd+H64TSM2V RGLAUZ8YEzq9L0BlZevs dHI+BZ70UUZqZB51hFSn yQWan9tbwZn1ZoTi XTNdHKV7tAcwIOses7Ep XPIdE99qcESjg6D8EFUr hRcrxYLxRxEzpFE9bG7z RUdlzjpkf3tscwek Doqvk2amwo01kN75I92r RWibSAXiGMS8LUEkVHVr sZrxks8tdP1rKx7+IDxj c4ezw2xmtGs0JcHc LBRyzhKvgFbsYBX6y2Nf Ga62I5AinUejs2LaEdy1 tl43bJKqp6K6kAN5KRir ZRQclR2yOYvqQgO1 JWHbXxAfnZ66tVWbDZwc Gd2bpPaijWhdSY9vEDCn dnjjWNCkgO8oHGNawICh mYpjZL5qILHdtsls y722HjZdIUX3AFFrfQNe I3XuyD8gTcJjXYMgRIMp D9GfuCUyZCrpM049UXhj KcY4KUPcgwHiS3Kb VVZqkUqfIcH2w5O0Fv7C y1MwwgumKIO2MOddZCU4 BuQ9HbHkZiE2I9EdXjw6 AQEwsTenBB4fM0Vv FJZogpoqkuhycWY9ZOAd CULgyH33yYJdCMthAy8d p3B9v301QWNpHTAvcA68 Nx8taQwzHLBcwOGD sM0epwylf9zpudbyNfVm EVHyYGl6MEg9IYCgpZtb RbKyBTC3YhT3PVE2rSPt kE5omSmkdjfykW1l Oyc+G13udW8iOYC9LUY7 affiJFAhaoRyQD16XG67 Z8JcCnlyqVVqsUF+PGRp qoHrrEppHH0cRiFo v6iye7MuKHzfV6RaPXCr ARlqSmm8LZSoGHA4pUI5 vH5hSVKvOFfvx9L2mNH2 L5TwjkBhkc6sj3kt JTJlOKecJ05qgSFms0B0 XQNxyPR9TIIobXnkLqQq mB00Yku+ISGibBzpy6Ll Dfgfz9ezy2fmyKl6 IjMwJSIgdmFsaWduPSJ0 a7YzYd31H34nDMvmTUIp JXFcHWCsYGKcaUiokz8g cI3rYt2+PGNvbCB3 vEO6gH5rZBSrYrI5KOns W744WgRugQKbRbspd6bu s2adgOc4ZyDdALYdngMm nOfwGPR2t3RiEt29 V63sQUolFTBbIBWlOGGg SNBdlHygns2dtN8hPa6+ CY9tc6ocnq78pZ50cRS+ UKZtPPW2lHwtGFfy EABihD1bKCraLzL6JMLj OcChfE65oQWvBIyeHd8n cZaxbLblCU4zDYUyghcw c056YaJmo3nqFTBb pUNcDImdCIM9G31hj8N9 BGMbMTQoTTZ7vIJ3aN1j bGlnbjogbGVmdDsgdmVy lBrbRYlsPDowL382 IHRvcDsnPlBhdGllbnQg BhIgDIr6R3WlDdw5WZRl yYwnOW1zkAXgNQckCc4v dOyovLktVN3wWKTx mbomd962HsMdl7vnCTRd nJOzVXwwBXX1F30hj8P4 DEOwJQCyVXR0zMF2wS1p bGlnbjogbGVmdDsg hhIneAluFBglTStbC106 IHRvcDsnPkJpcnRoIERh kCB2EE44AT60iBVuf0J9 nSL1E4PcUGOerdog vmlabCZ0RJKkVYTozN75 Bs6vsPkoMp3nKMPbWJE2 CUAuvEIdS5VwoF5oXyJz KGNrKFGfT2AveAVs MAsaI203GUopDaJ1RAIj wrVjF0CxRMQjoMcqXiF4 i4Q6Xy2FM7L7ZO91PQ94 tPYfp1P1eNY8B9Vm XHUxbznsaonnqEU1NFJa OJBiyU02Kc0jrStcOh1n MKDcEJU4PHSkeDGyI4Dg jW4dLtBpFZVuQYLt G4ExnMZdLLaeT211ANcd RmY1PJReglQrE4TwHGTf dVrxAoX3z2I1Sp3XAZn6 OI91HU66gWXsf3U6 fKV0H9HhUXPayvqxvjpe eHM8QLUbXBWexX17Ab0r pLxhPy9pFRXtTIP5SMFw kZHoT6MxcT3nSmLg SGXnYTDsQ7EocRNhLAtx V840NRmcIrX4CKPyoeJh Q6EtXNPqmWvsWeN0q3Q3 Bm3FNGMeQV21TZG1 pMZ7EC90EY36D7SaHhhk dGFibGU+PHRhYmxlIHdp ZHRoPScxMDAlJyBzdHls PY8dHl8oIFTqDWSk uPsgoQIsZoQnx1uxBQIp QWsjJV6xuObnO7PzbDT0 XYOmx7e4Xc52E53cL5Pv dXA+PJGrxCD8iEQ9 qU2aDmZjNpP4TUefN530 XpZkqUZzMberp9shq0lu jTe4ZfM4ABMcnzJjaPmq GNL1z7SqLp74E94z IHdpZHRoPSIxNSUiIHZh mNrctk3vbD5wEu9+PGNv gOW2rLA5qU8kFjJaSkF6 LMvcK994WoTilOEy Pxpuu5dyb3fujXk9VmNm PBCbemIsxWjhFRC5d1Ni Ow21F0RqiQxdr1EjZcv4 jj18iLEla1J7pLN3 W5UmZRDasjufrUUutByz TR0lAKFyfrohQPBfgC1d TIKjJ7z1CsKbJlZ3WCtf S1PobvV0FEJtmWZi GFtaKGT1F37dh2V4QQDe GNGgSHD0yKU2kC5ugPsd bjogbGVmdDsgdmVydGlj QBqkIYjsV246YDDc uMlkGGLteD1rOPMiqONw eXbcYA9nHXWxtfwiPjRH I3QQK40QLFBAK3SSCkHi ZEwCLP69S3LdThl9 NFGclZseHZ7abSJzFLbv Ch8ccGbmcXcuEB9vYCYa dzrhJRAnjP3dMMEcqHTc vFcyXD2uRKPgrqpp t142GdLkWHO6AJHhzMQu L6WrrX0gSpPxNOVrPWYb U6ZbbWZlKKxkV943ABrw YqJ2XSTwzlGnE0Sp FGZkaHztOzT5o6D9Jm9s YU1oYi4gFVQ5DW48EI81 ePKyd3H8wKS7A1SwPYAm uosqwnetnJA1WLQk LBXgvM55cTUmCCsiPe0w n0Y3g390HKLsPELlfK61 Jx1yjNofLWCszALAcU7d ykzwg0rmkrvoBnNz JNQcEVo3WZo2SICewYsc ZkGdSGF2KuO8IDO4pOLn tW1rqDlbjyntlG5bQed+ DMUiGGNruwL5Y2Po Jec5LFPaaNanBY9mmOWd ZAllRq4usPefaNioUS0h WFVfpblqJABxnF1jXTJq uSElpMjfPH0qCGQm wxron499MdFyKEL6KURv pYJjQ2CecD0kOdLbKYRy WAOxQ0XnbZNrHTpvA935 NEpoQvT5WBEiuqWd O9AtEEGjxQlzJtW8t2B5 Ez3MSVlRVG26GD52aVFe b5O9pTR2O0SyIPRorxbs bqlkcKK2NAEcAVZk aJ24sOInGWkhMa4li5G9 h415XMXpIESflW56Jv4k ySuxTRSxmXDWaZ0jahhr w3lspwfaQnGbHQMd QRk3NEc5HTIzbPrnAuWb ZNQ4MwT3FDT5zWPugM0l xGosffdglL7kUaw+T1A8 E2TnYvexaIT+PC90 XFBiCH92oSFckCXcg3io rCh4NiTuSVRdWYD8mSbc UCptk8RuDYDdT48xyFEf d6U8PDXnnKlevEOo WwVisMY0mI3cINvxhogt a4ndsgikAvmjk9pohz35 yQ35T87eOQazAQSdGLEt GJPbODKwwTybjd5r vY5eVu3+AAXakRA3pIH1 uA1yOjOcLlF8DKqoC376 GqDbhMNhNntwj5bfb5cw pDp4FqZnKGTdcjSz fOezWRL4y5PeDg66A58p IHdpZHRoPSIyMCUiIHZh jQbuya8nrX4yDd1+PC9j f5rxyc97mQ68lKY+ BSEjFYT1pOvtGSsdOOWp yY4tFAssMoW4AUGoJbMh dB54lKScUOqjPv4fjKeo mZmeKT5vBPSrnvuh n578NtRll7imTLLwgBOb WBvqPNV9G48am7P2KASm HBAgHSO5wDY8sI8ivLde bjogbGVmdDsgdmVy uHgkTDwwUAblG682EVGw jNbgApKsvHJiP0pwaxWI OD2wGfyzbNG+PHRkIHN0 qRkrNHubKDBpbS4p IOUkY4u5FtCbChW2SVbq G2AtxyE4PCRcxIHzASJt iHJXsL4jncvdq7luxnef MgFoRZCoTIe6NBo9 OWPbvDroBwYoLTT4HbW3 EZM7rRHmjY2azXikqocn jI6rJbc+RklOOjwvdGQ+ NKTtEJC8uYniFZas UKIsfE5aVOBwY8s3YoKt OmN1GXnnS5GuabP6RHDv xZDbKJXnfCUDcU7trdxc k7wyurxnRrHqDAGe RAb8GRa6CETjrZfcPvSe RZR0YdS3UHV7mMAcvZ6t wWsogznmwW2yAqm+TVJO OjwvdGQ+PHRkIHN0 xSriJQclHVKubV1kDEBz O1u4EzWoUgW6MEngU2Bf ztR2YAPxcBWcYCPflLUN xP5qflxje2atwtvu IuMzGNQdMVk6QWr6TGGa aUxpWdCxTGK5HtU2TYN1 xZLasZ3iuOasrotiaF3q Oyc+AKF6QGY1NM94 KX37G2TcVbdffQOzgWW+ PHRhYmxlIHdpZHRoPScx ADCaHzQceUbaNN5lZo8p ZGVyLWNvbGxhcHNl OiB (more content not included)... [facility] Coding Summaryon 04-06-2021 Coding Summary HTMLBase 64 JjnsaxozZWm7tGq+PGhl YWQ+QL5OAUFvM15muVCp sY1ER0jWFV4LLMIOHRAD ZZ0GKA6irTN4MRznX9Zm biAv PreyaYLfRQ80QEc2SNO6 gQwgBNakcM1caIZtF5a0 HqAaQX16xX53XOsgNHPr GdK3NsFdualboRXe I3cvPoOrzXKeYou+PHRh YmxlIHdpZHRoPScxMDAl RuCebLykFY5zZc3kHMDe LWNvbGxhcHNlOiBj v5ueIPLlWPctMA5loBox R2XlnWB4NFVft3n0Jl99 dHI+QBAzCVQ9uJpuHPoq a107VjKdh2upLCY5 vVWyVGamXBQ2B35md9U8 ULQzPBTzJXM3aSB7jK1z fRsyowxbD6HpgLAbWcX3 BNU1bODccE7biLhj qyoclR7uJgr+G61PYX2S SZGYON5MRic5J3ZzYpev dHI+SF39TOIzHP20cFFq jOEfv8vveGs6PxLx UKRhZGH8aWngJJalp3Hb EHGwS70jlOXxj6E8BZDr tTrepPBaOgYbaUJ4xW1w XZfmlismj3glexri Nkfxf8tpzb87rC32S78k MIcxULDqKXT9OEUvZOCi eEmqsg4vsT7sXy1+IDxj x5zmy9xvbPp6MeOp UUEvatDkbEovFKO4f5Ze Xm56F9PhxVjnw1FxXcl7 nj35pATai9T5rDD3VYwt PCAsnE5kYZmqItD2 OWJoBsMzfN56aOToHYad Vm9ehGvneClrLY5gDTTn qrdbXRPmhV5lPELcjHHc eBadBH0rDRJjegdq h526KxNnEDQ6WIRyyPXl L1BwjB1wLlMdWFViADGg Y7LudFCpYWhcW442MTgk BgN8BDVuaoYeP2Qb CYRcaDnaSuS3g0E2Ag7G d3AngbkeJRU1VKksDKU6 BqK3WgAtRlD0I4DsPkz3 ENFusPioDC4iW8Ns URHnshjbuafedDD1HPDk KYOcvD32uYHsDEpcPg0n u5J6m525IBFbNYJpvT79 Xb2luYrbXPYhzLBU rI7ppoexl4cfhxneAlVx LRNjFSt0MYg1CBWnmIqk KbAeWEL6DbO8DXM9eEXb xD0quRoypemqbH5f Oyc+Z00unI7oFPB9RJU8 vrjeJYLrloDoYX32IS12 A5XxLidavJOcgKW+PGRp pvFzeBxgGZ6bDzIe j1adh8BhWSkcZ4VbKDGc IShtYrr0PEKqMTQ6eFD0 uB8zQNNdLAiep4L3sPG0 N5MlhkYvzm8vp2yf QJUySPceN93szOOvw2B0 PESkhBM3KRDlsDlsZdYt lF56Mjy+GLZraIqou4Em Cwriw3wku8qfkWz1 IjMwJSIgdmFsaWduPSJ0 u8BqGw55F96xACsqSYIp LCQaWDKiQCLmzJyhzg7w iC7cHl8+PGNvbCB3 kMX0nY4kLVVgDoT1TFgk J037JjGofJHuYenzg1hj b1rjhHa9FtCpJSAxlnHs wOlePZV1w2EiMi77 H08vRAgjIGZoIJQhLZPh YFBveIhent9deY7rUj2+ EY5pn8wfln80zB57xPB+ CKDwBLZ4cJdbDAfu ONSktG5pJJpdXgG8MKXu GlEjsL65sRVrYCxyYp0f pXlczMnjHX4dMQQaeuer c113VyFur7xgBUDy nSCrGOaoUGP2M67vc7F9 PHXrHIUcMVQ2xPP9uX3g bGlnbjogbGVmdDsgdmVy dPbjMCpmMLavC216 IHRvcDsnPlBhdGllbnQg XbOvYZw4N4NsQwt6CKDe mQcvMA1nrGDvJSnqWp1b fNpjmVpcGQ1kEJHs khxnh565OvQef3tlYPUj aBUfWMrrTSB2G33cp4M0 KLDaHXIzZOH4aJH6zW0u bGlnbjogbGVmdDsg urBfwLsdAMmgJKoaV063 IHRvcDsnPkJpcnRoIERh aCO3IQ73DV47bVVio3D2 gVR3U3AlHQBnxbyw xcocxKG2WNXaDWOxhO48 Sp8baAstRn6rOXNvDBP9 BWUplBLcV2LkcF2xBzLg CYSvOGDwM9GloRUj UVjlA382WIvtWoL7FJJv gqRuP0DwQIYssJduLsJ6 p5G5Bk3ST4D9WN57XN16 dGIfm1N3bWN4K7Ci UWVgkqjrbumbxYK9KIHv YTErjD23Ie5jxEtaGw6f BLFwGYD2PUUpeNUdZ9Fi gK4kSlKjOAWnYZSd L4DptJHpAMmjO267TAvo AzZ9ROKqzhBqJ6YpDUPj uTjwJsW2g6H4In9RVJp0 KR18BA30nRYfa7D3 xSG2N7VqPFAtigflmmii aEV2BOXxNJLlnI28So0s vDakAc7mANZxNNB9TKAz dPZjG4NwnE1xMmMh RECmKIItS2IqfOZiKXqc T286CSixAvZ8ZYVenoFk Y1RmUBWmxQnwBfW4v8E3 Ke3OENEnST25LJT3 qDZ7GY11EV17L6NiAddi dGFibGU+PHRhYmxlIHdp ZHRoPScxMDAlJyBzdHls IH3sWo8nVQYlPRUy xLyguXPdEdXvo2suKKYg VApaHO6btUffY5XbxON7 LHElb0c2Rg84O27mD6Ty dXA+PNPtqGK4xMP3 fZ8vDtLzBpX8MZywB738 UuOyuOCjOimjp4ixa7vk gPe8TeC7SRXateGxrGme WHF4f4ZoYp32V31v IHdpZHRoPSIxNSUiIHZh dObdbq1drX5wGu2+PGNv yIJ5uVS2lZ8cRjMpRoE2 ULntI090RbLbqVPw Bbvzl6iml0uzmUu8JaPy DTWslvPcoTdtCGE7l4Oi Pz61V6TmeEjcx9WkTph1 dt12yQDll4L9uPG0 U8RqJSQojyqawWTmiItv KX7gPJHnjqgfVNBdkQ7y EMTlF8f4LqVzUzH8YYkk R1FhwjH5ATVaqJOb SOcsUGX8R75hm8U2FTSe NYFgYEC4jUG8uD1zlJoy bjogbGVmdDsgdmVydGlj CFagBTeqM812DXLp cVekWZExjE3tGZRgwZOd eEyhCO5xTHAybzumUnTW A6KKB54SGFOIT1KQAlRf VFbRWU04J8UpKmx6 PUOomRirOG3qpPXkCGcu Yd1orGqvuCjiCK5jETQc bwojNFJjqI6cYOQllOTb tGerVE4eGHPugxrg p948FwYySBH2HZZvtKTb N7AimP1kIeVoFCWvFRZh N9SisYSiPNdrE675KLlo WyM8HQZocmIfD9Jc LDYtdDorXgJ7w7T9Gp9b AU1sBv8mCKZ8UA59AW58 cQUlx4W5pPQ6H7XxENMl lulavipucXA6KXGa OEVzvW66jNOkCCsqIo1r d4O3v332GXUoYEQdsT77 Fl9ghFcgRQJjcHIYnB3l qnfty4tkpfrzBvQj GVDlKDc6KVw2LXWdnBve UlBzTZG7WlN8CCO5xHNj gJ6npWpqmdvdeD4hZzp+ JAVuAFMwceK2V6Ih Yxk9TYHufYkxRS9vgZLf VJlmAo3lzHbevVahJK9m FASkrhkvWHTufH4hSSUf pJWuyUmvQP1yBWSn zxceo870WrDpFZW3KJXj fJStQ3KelQ2sHzLpKOWq TVNoT5GctWCpQHmpR417 OCxvWlN1ORSqqaWq P2CbWSAlvTpoJqM8n3O0 Go5SVGeZIR85QJ55iAVt g2W9gYQ0H2SdFABsiads cyyfkYU5UGQgOSJt rA12lOLeHMfeQy7zp5H8 d993SRFdGMAckK31Kc5p lJtaTRTgpTTXcH4hebtb l4gjufvmLqMlNERs QKa8YQw3QVFpsGohTvQe TRE8DfY8FRW7gCBebL2p oCkzqncksN3tBlc+RW1l qtfmdvQ2GT39QN68 N8GwExvdjDTvzNT+PHRh YmxlIHdpZHRoPScxMDAl JyTzmIdzRK2mYp2yUTSw LWNvbGxhcHNlOiBj v7mgDEXyVPopVL1wtFtk V0YrzLY7WPKnb6a8Oc23 Y66vW6WfzTS+PGNvbCB3 cAT4oB2eStNoWpR9 WTqvK096SiLkxMZhTmrl l5dqk5etmEn9NnMaOXCm orManQzjHZI6d0FiGz74 J51hTWdzVSLrWDUx KTLrJRNhwQowzu5kkO2z Ii8+WIHprBB4oRA0gV3e FnFnRbI1QInmT765DlDx tMLtXgyaD53dQ7Lj dXA+NJCnXvq1KLXdcEgc RO4kqFOpEGakNd6iSXX0 BhCfPpDsVSrrT3TlAONv yidcvbmutIU7LPXi JOHlwO71Em8xeMtuWf2j CYTtRII7BWSssVBfN6Bf yC1qCaMjBDBlYGEyU0Er zPFvNGunQ286YFmi KcK0QAVzblDkU5YaCQWl cAleAdI4k7P4Pi9AbUks pCQzJJ3hTqHuTXi1C8Dj Ibn9HEBmyIjdDK7o wGWgTYlkWk9dwSnaiJgk MM3eVMFatmlvh582LbCd f1wcPNTlcVFzUGjmBPL4 O60tt9M8IGHqWUSv UVS8aNR4sO9haHcyocwg bGVmdDsgdmVydGljYWwt ZSgzD504ECAonVtoYkPB Oan5W9WkIkz2TZRy yHwpFC2egSNpFKdnZq3f vKqnxWcwCD8yRCHoifbs b871SaHfi8oeJNEhdRQj VBwwCRU0P62rc2J6 XSLhEIGsBNH2wWV3hY4t bGlnbjogbGVmdDsgdmVy tCtwWYlkZXujA881IUIp fQcpEj6HMss4M3Um Pkb1KFTooQnwJA5ipZVs RQfpJj8deKjdrVliWJ9p DPZlnygvi357VbKck0mk IDEwcHQgVGltZXM7 O11va7D6DHYyTRZeHNQ7 iOK0fA9xqRyuqgxlpFNj dDsgdmVydGljYWwtYWxp A892LOGzpInoOcOy eWVyOjwvdGQ+JY73ok01 G9YqMrbqWia4LTCuTVB7 oFL9jY1nQVMwLSicp3U8 uXW9J8QaopSadt8e b2x (more content not included)... [facility] Coding Summary [employer] MpekquktSFr6oKg+PGhl YWQ+EY3ZJLOeW28eqENq zO3QD6uATD1HGNUYSZJX TH4AHQ6fnLR0JFquP8Zo biAv HbxviMMqZK32CEf6NWM6 hOaaTWvviT5fcPEgO7r5 DrOuFU47qP07SHmsWCRs YtO8AnNxdfllePJz U8bxToFrcCQjEhy+PHRh YmxlIHdpZHRoPScxMDAl FqWczOiuUY8rSc2xIWIv LWNvbGxhcHNlOiBj m5bvBYXsJMyfTE3isGji G2YgdGR8CKJmt0o2Ni40 dHI+NAOcLHO9nDxmMSpg o539TtBmv0prBLG6 kTDnEBwcPRV7C03ew8M4 VDJlNFLrHER3uQH2vZ3y wPidcbzoR4ExmOEyKdO4 OPO0qTQnuG4eqYvp nuhavD5sRwa+E94KBB6N NWQJLD4STjh5C7OxDvhy dHI+SE30GKVvOP84qTHm yMVzq4tzyZs4IhIh YHMfHVN7zZhzDEmig2Mt AAYyC37suDLyi3L6IYUh uQgawWDmIlLunBF0xG5j ORccchtgk8ibvmkc Zryer2rwsn79yL31A32u FElbBGGwHZH4OIZbCOMo jAwmwy1hfU9jWc2+IDxj q3xea4aijEo2IlWk EGNefnRlmNdkNIQ3f4Dp Tp47E4ZujVqfw7MfLhz6 ts83jBVmh6I3aJL9PEpx EDDxvW3qHDqaDeA8 XBFgJtVzdF25iQIjZIfx Ut5rbXvwiPokRV7mCWXk pawuFGJgmI5fRVIkkBFm aTbjIC6oIUCbfwrk e718GrHiGVY6COFbhCDb T5ZauX4tGhMyCKHyYJZm U8SkeOQtMKtzY753CAox OcE1MMWgtxVsH6Pl YPOjtIqwEaI2s9I8Mb2F g5VwyzhqBAW5MJelMIW9 FvN6TqUpIeX7U2HcPfc6 UHVhnJirVS1mY8We CTUadlqvrucjcPI4KDXo DXApcG68lYGcQIllTf2z n6L9v408FDLiZHNmfN13 Eq5olOugZFSluKFJ wA0sabifd6yulozsVnId POSsJVs8RJj8MXKhbKfg LnStKKQ3VtY6GHF7yHLi lZ3vxMwxaozymZ6p Oyc+U02ozZ9ySOP5MLT8 smkkTIAflhCpYN94LV36 R5UfRdlylLWykBB+PGRp lcKpbKejLV2qGpMu q3qzt0CdMFymK7FyTNNr NRagIlx6PRIrWTN4wOT3 kV1hYGYlQSlkd8O9fAE3 Y3TmriTzhy2fq9ll QLByGAvqH73mmNDme3K8 EKLogMK0JVAdmWzpYiTx wU91Qta+SSQrlOqtc2Cs Xgghq5tgf9jplLk8 IjMwJSIgdmFsaWduPSJ0 x6QhVn15M77lEVkxNIEl NZDmGICjIJBurLavym4i zD5nTt2+PGNvbCB3 uDZ2sJ6zJHMaCpD7OUzx N931YkAuzTEwJxvvi8hb e9ltpPx0NgFpNLVyyyCh hDjwVVQ5k9SwHr13 A62lWZzuARJaVPBlNZGj NMJpbEfsbo4rgP5zEv0+ VI4hr5ippc44lJ28mIZ+ EPUsRSO6hNgqVDft OOJlcK8sTEbkGpW4ZWDa UaGdhP90cPWjBYykXa9v uLphlYekWV9hQZWtctmq t355SqLhq7gcGXXh nLSxNWzwGBN0P43en0U1 GACnCMFlNPE3gTB4mL5c bGlnbjogbGVmdDsgdmVy oNwuZWrxJTqsS714 IHRvcDsnPlBhdGllbnQg YbMnVHs3B1PpXoq7ABRo nIjyQM0kcZBbUBsqBi7h uOdbjHqwTN0kJNSp xujaq951RcCnx2nyIPQc aFEzROujOWR1J00px1I4 NDOtXPQaTXV7xNB7mE1c bGlnbjogbGVmdDsg hcKuxPhvHZvgEFzgD950 IHRvcDsnPkJpcnRoIERh eXI9YS86KO71qBRfg7L7 gBI2L4ItGLYxshdn cvryiAD8BPXvUJRuyN70 Us1ccRhrSv4cDAJeDUL3 NBLjtGFjE4TohZ8qFpNw SXPmWAGgE2AmyTKx AWtjY493RYztLiM8UTAd isQmO2OwJRHckMcjAcV6 s3C6Hr4JQ6V5BP23PI69 jVIgx4H1gCY8R7Cf KSUvldperadtnYI0JQYf XILnsC87Qk7osXmwLy9k HVIzVQC2ASAmoJRgI5Og eD3fRxUpMUYuSKSu R6ZaeKMoNVsqT818ILox QnU9PNXkxuHyT0GyKYBx sVpsKyW2n3L3Uk4MBQe4 DP01HC71gCZrj1C6 hWU3D1EbIBOnlpjtcamk vGO9ZWJjFXXymF14Qc7b nRgkIb4bGLOuWTJ2BDRq lUPaK5DynP4cZbUy UGTgJXNtR7FreCLuXKyq B362DWriRnT2OTQjngTq M5QwYUBeoBnbFxD7l3B7 Vv2CYSEaRQ26AGZ8 mTM9SQ97WU01X1EsXpff dGFibGU+PHRhYmxlIHdp ZHRoPScxMDAlJyBzdHls EP1eIm1qQBXzZXEn iSwycLAfRsXkf1htWGKw WMyzVO3xpPjxM4BtsTG5 HXUlo4i0Vo07Y48lZ6Dq dXA+HAGehSC3bLQ8 oO4iWgUrBzR4XTpgO949 HnPezHAhSxntx1nbd0pt mNx6LnC1LSDawfDacXou TQF1f4JgYq78Q27c IHdpZHRoPSIxNSUiIHZh vHfonq2xyO6mSq0+PGNv jWB7hRN0zC6uLvNbCbQ0 MIhvH948CiFuvBBp Jeiwf9jxf1swxIp8CzWh PUSpynMkzVkfUFN7n7Tl Wv44P7ZloCnhc2CvQuz4 lo85wTCtj6G9jKR7 L7QjHESstvgrpYSwaFsp OZ9bQBKbzzrzOUQvlN1s QWKhO9y8WxPpDgO6VLdb O8LvzlW6KWRjqJZq VJnqAQK2H56vk9P6ADJk AMTlUWS8pSC8lJ8dhPpr bjogbGVmdDsgdmVydGlj INylJEgzH126MBGs bEyqXVZehF2qOARyaGBn jXgrGI8qVGVrqhhySpMU L7PDZ39KQORQL8OSHsZh MMnKOX73X8ZrHar6 PERxbBtmMA3lbITaUGdi Kb6wnGswaXfcSX2xGEJs jyvkLOZqlT4rNLWkdUFz dRbfTV9eVRKnekju f464RgUdLCO2HRPigJLj J5RemT7aTyOvOHZoPLBd G7SrbKGuVIclB085GDkn IjJ7DNOpkgIqT6Rg HKRjlNlcBcY8h7C9Le5y US4ePs6qWOC8RI44EO67 jYOux9P5zRJ6X7SnLJLa xcfzngopuCS8GSRz YETueW81nFAlNKjaWd7l i4P5d075IYKjZLFeyI59 Gm0txLjqPIOonXPEaB5b mkmtw8gphfiqJrJu RTQlUTe5RQv7ONMvmOuy AkGmBQV0HnB6DDY7fUJz lO7vkUnynapzsX0zNgk+ VKKbUWFhkyV4N2Ui Bwq2FTWwqZfnYT8rtLKu GYlzCj9njPwicYjeBU6v HFZgbsejWQZfuF4wRTQb qOXvnTanAB7rMUXl ssnyp701DbYlKDS1GERi qDJpZ0FplR9eGjOmSWWi BWWaT0LtnFHyVQvoA751 THzzHrY4RIUbqaAh M4CuSCLhjRovZhQ9j6X2 Ix6CHKhBWV13RN28aBHg q9K5xFZ6P1VcYZByhhtv esjqlCL8BOJmJZFf oD20dPEpIZmvTi6vc7R9 h651GUStTPLgyR68Qe7e bPztVSZcmHOImB2beusu b3ysdpniLeWdFGTb OCu0CXs6JWPpzLthSqTp WKF4OgN6MEG2yYXhxI5p pStwyecxkK6vTyc+RW1l ynzhzsM4AD00EI05 T2EvVzsyaZCxoYU+PHRh YmxlIHdpZHRoPScxMDAl RaWbnFkfUH6mSh3aPRAd LWNvbGxhcHNlOiBj j8jmXRPaVMrdPD4chCxl Y2OwbTY2MBUhm9i0Ut15 J66yI7RmkZG+PGNvbCB3 lCF4qN6kBrZeXnH4 QOkfG299FoJaqMIbUdaj l1yro4aagXa6QvSyORMd irLjvUxnUKU4y3TjDm53 R02xYCuyTWRvHRHa FUUtPFFpmDdfzp9edK1h Ii8+WTIejGA6hTA5eJ3t KeYpAjP0GDxbV728NwIf kTIuSfwhG97jS7Hl dXA+MPZvPbe5JDNimEim BN7wzFUmKAexZj6nAEZ8 KhZoRuKiHDysK6BsMZFr hihtudqvzLL3QCRw MIWyrG21Oe4iuFpaBe1x GCBrJND0NDJtcTNyF9Ph wH1zRzCyUCCuOZNtJ9Af wJWmLQrqY163KQby VwK2GWIautUbS1PtJUOi wWkwRnK3n0T6Op3IhPpb qJAiII2xQcGnHNq7V2Ve Bhu8VJJhwYncFI4m gJUvAAmrHg3nwKxozEny XF9zOQTfvonol676IdPf w7znDAKakGEvQCogPPM7 Z94qr0K0LHLcYVZh MSW2cWN7fE1vwYddkfgi bGVmdDsgdmVydGljYWwt YFlhZ482USRfsUreNrEV Hfx2V9JoAzu1KBWj pXktUO6izLWfFPyaRi9r tHnnpNanJJ7eXSEfwmll b836XeCwc2tdKIKesNZh UQmrHDK7W11hv8A6 DOAkZRKmIZX4mIJ2eX4l bGlnbjogbGVmdDsgdmVy hCyrBSyaAInvE119HQMz mZrmDj9FTon7Z1Yj Sjz0GAFbeQhwEM8fzWPm UWzjBm2knGbqmZwpKZ8t OQCptgqxz613DzDci9zr IDEwcHQgVGltZXM7 V25hr4D2HGRlIXUlDKN4 iAT0lP2ezZcjmzbisYZq dDsgdmVydGljYWwtYWxp Q463HBMeeOkxOuOg eWVyOjwvdGQ+HT87uw93 G5ZqOrtrJar4MKCnEWC1 gMP6dI0bNOSxHYbwc4H1 mNX3W7LykeJqlg3o b2x (more content not included)... [facility] ED Clinical Summaryon 2020 ED Clinical Summary [facility] Emergency Department [address] [place] [address] [id number] ED Clinical Summary PERSON INFORMATION Name: ROSA EASTMAN Age: 55 Years Sex: MALE : 1965 MRN: Acct#: Visit Reason: Hand pain-swelling; RIGHT WRIST PAIN Arrival: 04/01/2021 19:05:43 Discharge: 04/01/2021 19:35:00 LOS: 000 00:30 Check In: 04/01/2021 19:05:43 Checkout:04/01/2021 19:35:00 Address: [address] [facility] [address] PCP: Provider, None PROVIDER INFORMATION Provider Role [...] Follow-Up: With: Address: When: Andrew Mckenzie DO [address] [place] [address] [id number] Within 3 to 5 days DIAGNOSIS: 1:Sprain of right wrist Patient Understands: Yes - Patient/family/careg iver verbalizes understanding of instructions given Comment: [facility] ED Patient Summaryon 021 ED Patient Summary [facility] - Emergency Department [address] [place] [id number] PATIENT DISCHARGE INSTRUCTIONS Patient Information Name: ROSA EASTMAN Age: 55 Years Date of : 1965 Reason For Visit: Hand pain-swelling; RIGHT WRIST PAIN Arrival Time: 04/01/2021 19:05:43 Primary Care Physician: Provider, None Attending Physician: Medhat Hernandez MD Comment: Visit Diagnosis: Diagnoses This Visit Hand pain-swelling ([id number]) Sprain of right wrist (S63.501A) Prescription Information: If you have been given a prescription for narcotics, seek immediate medical attention if you have any difficulty breathing or any sudden status changes such as confusion and sleepiness. If you or anyone you know is experiencing suicidal thoughts, mental health, alcohol and/or drug addiction problems; contact the [facility] 02/06 Crisis Hotline -Shlb 6KSAT gs 861282. If you received any narcotics, sedation, or [...] legal documents With: Address: When: MagalyAndrew DO [address] [place] [address] Within 3 to 5 days Medication Information: The exam and treatment you received today in the [facility] Emergency Department were for an urgent problem and are not intended as complete care. It is important for you to follow up with a doctor, nurse practitioner, or physician?s retail assistant store manager for ongoing care. If your symptoms [...] so we can reach you if necessary. [facility] Emergency Department has provided you with a complete list of medications post discharge. Please inform your taxi truck driver/provider of your visit and for further instruction on these medications. Any specific questions regarding your chronic medications and dosages should be discussed with your primary care physician(s) and/or pharmacist. Medications to Continue That Have Not Changed Other Medications acetaminophen-hydroc odone (hydrocodone-acetami nophen 5 mg-325 mg ([place] 5)) 1 tab(s) Oral Every 6 hours [...] With poor (more content not included)... Normal [facility] Vital Signs Date Time Vital Sign Value Performing Clinician Facility 02-20-2023 14:00-0400 Body height 172.72 cm Josué César Other [facility] Other 02-20-2023 14:00-0400 Body mass index (BMI) [Ratio] 32.08 kg/m2 Josué Evangelista Other [facility] Other 02-20-2023 14:00-0400 Body weight 95.71 kg Josué Evangelista Other [facility] Other 02-20-2023 14:00-0400 Diastolic blood pressure 80 mm[Hg] Josuéyousuf Evangelista Other [facility] Other 02-20-2023 14:00-0400 Systolic blood pressure 130 mm[Hg] Josué Evangelista Other [facility] Other 01-22-2023 09:40-0400 Diastolic blood pressure 84 mm[Hg] DO Britt Rumschlag Work Phone: [place] 01-22-2023 09:40-0400 Heart rate 70 /min DO Britt Rumschlag Work Phone: [place] 01-22-2023 09:40-0400 Respiratory rate 16 /min DO Britt Rumschlag Work Phone: [place] 01-22-2023 09:40-0400 SaO2% (BldA) [Mass fraction] 96 % DO Britt Rumschlag Work Phone: [place] 01-22-2023 09:40-0400 Systolic blood pressure 136 mm[Hg] DO Britt Rumschlag Work Phone: [place] 01-22-2023 08:47-0400 Body temperature 98 [degF] DO Britt Rumschlag Work Phone: [place] 01-22-2023 08:12-0400 Inhaled oxygen flow rate 10 L/min DO Britt Rumschlag Work Phone: [place] 01-22-2023 07:35-0400 Body height 172.72 cm DO Britt Rumschlag Work Phone: [place] 01-22-2023 07:35-0400 Body mass index (BMI) [Ratio] 32.4 kg/m2 DO Britt Rumschlag Work Phone: [place] 01-22-2023 07:35-0400 Body weight 96.8 kg DO Britt Rumschlag Work Phone: [place] 03-13-2022 11:45-0400 Body height 172.72 cm Harvey Holt Other [facility] Other 03-13-2022 11:45-0400 Body mass index (BMI) [Ratio] 32.23 kg/m2 Harvey Holt Other [facility] Other 03-13-2022 11:45-0400 Body weight 96.16 kg Harvey Holt Other [facility] Other 01-14-2022 14:30-0500 Body height 172.72 cm Harvey Holt Other [facility] Other 01-14-2022 14:30-0500 Body mass index (BMI) [Ratio] 32.23 kg/m2 Harvey Holt Other [facility] Other 01-14-2022 14:30-0500 Body weight 96.16 kg Harvey Salcidocamilo Other [facility] Other 09-19-2021 11:00-0500 Body height 172.72 cm Harvey Yanet Other [facility] Other 09-19-2021 11:00-0500 Body mass index (BMI) [Ratio] 32.23 kg/m2 Harvey Yanet Other [facility] Other 09-19-2021 11:00-0500 Body weight 96.16 kg Harvey Salcidocamilo Other [facility] Other 09-19-2021 11:00-0500 Diastolic blood pressure 87 mm[Hg] Harvey Holt Other [facility] Other 09-19-2021 11:00-0500 Systolic blood pressure 130 mm[Hg] Harvey Yanet Other [facility] Other Encounters Encounter Date Encounter Type Care Provider Facility Start: 01-12-2024 End: 01-13-2024 ambulatory Richard Lezama MD [facility] Start: 12-22-2023 End: 12-23-2023 ambulatory Richard Lezama MD [facility]: [facility] Start: 12-08-2023 End: 12-09-2023 ambulatory Richard Lezama MD [facility]: [facility] Start: 10-15-2023 End: 10-15-2023 ambulatory CANDIS [facility] Start: 10-14-2023 End: 10-15-2023 ambulatory BRITT Coffman [facility] Start: 03-04-2023 End: 03-05-[address] DOCTOR GARCIA Facility: Start: 02-28-2023 End: 02-28-2023 ambulatory Josué Evangelista Other [facility] Other Start: 02-28-2023 Telephone encounter Josué Evangelista [facility] Start: 02-20-2023 End: 02-20-2023 ambulatory Josué Evangelista Other [facility] [employer] Other Start: 02-20-2023 Postop follow up vis it related to original px Josué Evangelista [facility] Start: 01-22-2023 End: 01-22-2023 Admission to same day surgery center DO Britt Rumschlag Work Phone: [facility] [place] Start: 01-22-2023 End: 01-22-2023 ambulatory Josué Evangelista Facility:[place] Start: 01-22-2023 End: 01-22-2023 ambulatory DO Britt Rumschlag Work Phone: [facility] Work Phone: Start: 01-13-2023 End: 01-13-2023 ambulatory Josué Evangelista Facility:[place] Start: 01-13-2023 End: 01-13-2023 ambulatory DO Britt Rumschlag Work Phone: [facility] Work Phone: Start: 01-13-2023 End: 01-13-2023 Patient encounter procedure DO Britt Rumschlag Work Phone: [facility] Work Phone: Start: 12-06-2022 End: 12-06-2022 ambulatory Josué Evangelista Facility:[place] Start: 12-06-2022 End: 12-06-2022 Patient encounter procedure DO Britt Rumschlag Work Phone: [facility] [place] Work Phone: Start: 08-10-2022 End: 08-10-2022 ambulatory [facility] Facility: Start: 07-08-2022 End: 07-08-2022 ambulatory Candida Hinkle Facility:[place] Start: 07-08-2022 End: 07-08-2022 Patient encounter procedure [facility] [address] Start: 06-21-2022 End: 06-21-2022 ambulatory Candida Hinkle Facility:[place] Start: 06-21-2022 End: 06-21-2022 Patient encounter procedure [facility] [place] Start: 03-13-2022 End: 03-13-2022 ambulatory Harvey Holt Other [facility] Other Start: 03-13-2022 Office outpatient visit 15 minutes Harvey Holt [facility] Start: 01-14-2022 End: 01-14-2022 ambulatory Harvey Holt Other [facility] Other Start: 01-14-2022 Office outpatient visit 15 minutes Harvey Holt [facility] Start: 10-16-2021 Admission to [facility] Harvey Holt [facility] Start: 10-16-2021 End: 10-16-2021 ambulatory Harvey Holt Other [facility] Other Start: 09-19-2021 End: 09-19-2021 ambulatory Harvye Holt Other [facility] Other Start: 09-19-2021 Office outpatient ne w 45 minutes Harvey Holt [facility] Procedures Date Procedure Procedure Detail Performing Clinician Start: 01-22-2023 Decompression of uln ar nerve DO Britt Rumschlag Work Phone: Start: 12-06-2022 X-ray of cervical spine DO Britt Rumschlag Work Phone: Start: 07-08-2022 MRI of head Plan of Treatment Date Care Activity Detail Author Start: 01-22-2023 End: 01-22-2023 [place] Start: 07-08-2022 MRI of head MR head/brain wo con Fi [facility] Start: 07-08-2022 End: 07-08-2022 Patient encounter procedure Departed Clinical [facility] [address] Patient referral [facility] Work Phone: Immunizations Immunization Date Immunization Notes Care Provider Fa cility 03-07-2021 COVID-19 mRNA, Comir philip (Pfizer) [place] 02-14-2021 COVID-19 mRNA, Comir philip (Pfizer) [place] Payers Date Payer Category Payer Unknown 2022 Medicaid [id number] 2022 Self-pay [id number] 1965 Unknown [id number] 2.16.84 0.1.492008.3.579.2.593 1965 Unknown [id number] 2.16.84 0.1.596753.3.579.2.593 1965 Unknown [id number] 2.16.8 40.1.572484.3.579.2.173 1965 Unknown [id number] 2.16.8 40.1.742815.3.579.2.173 1965 Unknown [id number] 2.16.8 40.1.206922.3.579.2.173 1965 Unknown [id number] 2.16. 840.1.496550.3.579.2.196 1965 Unknown [id number] 2.16. 840.1.881966.3.579.2.196 1965 Unknown [id number] 2.16. 840.1.732153.3.579.2.196 1957 Unknown [id number] 2.1 6.840.1.657326.19 Unknown [id number] 2.1 6.840.1.241514.19 Unknown [id number] 2.16.8 40.1.802562.3.579.2.531 Unknown [id number] 2.16.8 40.1.271273.3.579.2.531 Unknown [id number] 2.16.8 40.1.243723.3.579.2.531 Unknown [id number] 2.16.8 40.1.279117.3.579.2.531 Unknown [id number] 2.16.8 40.1.541233.3.579.2.531 Social History Date Type Detail Facility Sex Assigned At [facility] Other Start: 10-16-2021 End: 01-22-2023 Tobacco smoking status NHIS Smoker (finding) [place] Start: 1965 Sex Assigned At Male F [facility] Medical Equipment Procedure Code Equipment Code Equipment Origin al Text Equipment Identifier Dates BONE 7MM DUO FORTITUDE SERIES FDA Start: 10-16-2021 Spinal fixation plate, non-bioabsorbable ()[id number] FDA Start: 10-16-2021 Bone-screw inter nal spinal fixation system, non-sterile ()[id number] FDA Start: 10-16-2021 Bone-screw inter nal spinal fixation system, non-sterile ()[id number] FDA Start: 10-16-2021 BONE 7MM DUO FORTITUDE [...] 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 I will see him on an as-needed basis I think he has had a good outcome overall. [facility] Other 05-04-2022 Evaluation note* Encounter Date Diagnosis [...] Cervical spondylosis with myelopathy (ICD-10 - M47.12) [facility] Other 03-29-2022 NoteEducation Materials Neurology Paresthesia Paresthesia [...] or sweet foods. General instructions ? Take mszp-ivi-hdnckgk and prescription medicines only as told by [...] provider. Document Revised: 11/22/2019 Document Reviewed: 11/05/2018 [employer] Patient Education ? 2020 [employer]. Orthopedics Cubital Tunnel Syndrome Cubital tunnel syndrome [...] ? Playing contact sports, (more content not included)...[facility] 01-14-2022 Evaluation note* Encounter Date Diagnosis Assessment [...] will see him on an as-needed basis. [facility] Other 11-10-2021 Evaluation note* Encounter Date Diagnosis [...] They understand and would like to proceed [facility] Other 09-27-2021 Note [id number]05-23-2021 NoteEducation Materials Orthopedics Wrist Sprain, Adult A [...] health care provider. General instructions ? Take acyr-riz-gvoysun and prescription medicines only as told by [...] provider. Document Revised: 10/09/2018 Document Reviewed: 05/15/2017 [employer] Patient Education ? 2019 [employer]. Wrist and Forearm Exercises Ask your health care provider which exercises are safe for you. Do exercises exactly as told by your health care provider and adjust them as directed. It is normal to feel mild stretching, pulling, tightness, or discomfort as you do these exercises. Stop right away if you feel sudden pain or your (more content not included)...[facility] note[facility] InformationNort [employer] Other evaluation noteNo assessment information available [facility] Work Phone: History general Narrative - Reported* Type Description Date Surgical History (R) carpal tunnel release Surgical History (R) Ulnar nerve release Surgical History tonsillectomy Hospitalization History See Above [facility] Other Hospital Discharge instructions Additional Instructions Use [...] Any unusual redness or drainage contact [facility] Work Phone: Summary Purpose Family History No [...] 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) Referral Organization [facility] Referring Provider First Name Harvey Referring Provider Last Name Omarijimtru Referring Provider Specialty Neurosurger y Referred Organization [facility] Referred Provider Jonn Singer Referred Address [address], [place],[address] Referred Provider Specialty Neurology Referral Priority Routine [...] section and content) DATE CREATED AUTHOR 02/16/2022 [facility] DATE CREATED AUTHOR AUTHOR'S ORGANIZ ATION 01/23/2023 [facility] DATE CREATED AUTHOR AUTHOR'S ORGANIZ ATION 03/08/2023 [facility] DATE CREATED AUTHOR AUTHOR'S ORGANIZ ATION 10/18/2023 [facility] DATE CREATED AUTHOR AUTHOR'S ORGANIZ ATION 01/16/2024 [facility] REASON FOR VISIT (unrecogniz ed section and content) Referred Dr. Mckenzie Cerv ical Discacdf C3-43 months po ACDFEMG RESULTSright ulnar nerve release4 wk po/ Right ulnar nerve/ [id number] Care Teams (unrecognized sec tion and content) Team Status: Inactive Member Role Status Dates Candida Alexander PA-C Attending Provider Active Britt Goodman , DO Primary Care Provider Active Team Status: Inactive Member Role Status Dates NON STAFF Primary Care Provider Active Candida Alexander PA-C Attending Provider Active Team Status: Active Member Role Status Dates Britt Goodmna , DO Primary Care Provider Active Team Status: Inactive Member Role Status Dates Britt Goodman , DO Primary Care Provider Active Josué [...] BE BASED ON THE PRIMARY CLINICAL RECORDS. [employer] provides no warranty or guarantee of the accuracy or completeness of information in this document.
[2024-02-09 09:59] VITALS: BP 129/75; PULSE 77; TEMP 36.8; O2SAT 96
[2024-02-09] MEDS: LIDOCAINE HCL 2% PF 100 MG/5 ML VIAL 3 ML INJ (10:34)
[2024-02-09] MEDS: BUPIVACAINE HCL 0.25% PF 25 MG/10 ML VIAL 8 ML INJ (10:34)
[2024-02-09 10:35] VITALS: BP 133/66; BP 135/69; PULSE 72; O2SAT 96
--- NOTE | 2024-02-09 10:36 | W.PM.PROCNOT ---
Date of procedure: 02/09/24 Pre-op diagnosis: Lumbar spondylosis Post-op diagnosis: same as pre-op Procedure: Procedure: Bilateral L4-5, L5-S1 medial branch block Medications: Bupivacaine 0.25% 6cc The patient was seen and examined in the preoperative holding area.? An informed consent was obtained and placed on the chart.? The patient was brought to the medical procedure unit and placed in the prone position.? A timeout was completed verifying correct patient, procedure site, positioning, plan, and special equipment.? Using aseptic technique, the needle was placed at left L4. Under direct fluoroscopic visualization a Quincke-tipped spinal needle was advanced to the junction of the superior articulating process with the transverse process at the designated medial branch segment.? Preceded by negative aspiration, the above-mentioned injectate was placed in 1 mL aliquots.? The procedure was repeated at left L5, S1.? The needle was removed and insertion site was covered. The same procedure, at the same levels, was completed on the right side. The patient was taken to the postprocedural recovery area and monitored for an appropriate length of time before found suitable for discharge in the company of a responsible adult. Anesthesia: Local Surgeon: Richard Lezama Pathology: none sent Condition: stable Disposition: no change
== END 2024-02-09 10:41 | disposition home or self-care (01) ==
PROVIDERS: PCP Family Medicine; Visit Provider Anesthesiology
DX: M47.816 Spondylosis without myelopathy or radiculopathy, lumbar region (principal)
CPT/HCPCS: 64493; 64494

== ENCOUNTER 2024-02-19 10:59 | Outpatient (OUT) | payer MEDICAID, SELFPAY ==
--- NOTE | 2024-02-19 13:36 | P.CN_ITS ---
Consult Note: HPI Data of Consult Patient: known to practice within the last 3 years Requesting Physician: Wilma Bhardwaj NP Primary Care Provider: Britt Goodman Consult Narrative Reason for consult: f/u Narrative: Homer Eastman a pleasant 58 year old male presents for evaluation and management of chronic low back pain. Patient reporting pain 6/10 in low back and sharp, increases with twisting standing walking listing stairs bending and activity. pain decreases with sitting lying. Patient finds mild benefit to current medication regimen. Continues to engage in HEP greater than 6 weeks without significant improvement. Patient recently underwent bilateral L4-5 L5-S1 facet medial branch block #1 with 100% improvement in low back pain and functional ability immediately following and 1 day after injection. LOS 33%. cc:: CC: Wilma Bhardwaj NP Review of Systems ROS Status of ROS 10 or more systems reviewed and unremark able except as noted in history and below Musculoskeletal Reports: back pain PFSH PFSH Medical History (Updated 02/03/24 @ 15:32 by Manasa Hope) Glaucoma ?H40.9 - Unspecified glaucoma (ICD-10) Obesity ?E66.9 - Obesity, unspecified (ICD-10) Smoker ?F17.200 - Nicotine dependence, unspecified, uncomplicated (ICD-10) Low back pain ?M54.50 - Low back pain, unspecified (ICD-10) Neck pain ?M54.2 - Cervicalgia (ICD-10) Osteoarthritis ?M19.90 - Unspecified osteoarthritis, unspecified site (ICD-10) Bipolar depression ?F31.9 - Bipolar disorder, unspecified (ICD-10) Carpal tunnel syndrome ?G56.00 - Carpal tunnel syndrome, unspecified upper limb (ICD-10) Chronic GERD ?K21.9 - Gastro-esophageal reflux disease without esophagitis (ICD-10) Acid reflux ?K21.9 - Gastro-esophageal reflux disease without esophagitis (ICD-10) Sleep apnea ?G47.30 - Sleep apnea, unspecified (ICD-10) High cholesterol ?E78.00 - Pure hypercholesterolemia, unspecified (ICD-10) Surgical History H/O neck surgery ?Z98.890 - Other specified postprocedural states (ICD-10) H/O elbow surgery ?Z98.890 - Other specified postprocedural states (ICD-10) H/O carpal tunnel repair ?Z98.890 - Other specified postprocedural states (ICD-10) Hx of tonsillectomy ?Z90.89 - Acquired absence of other organs (ICD-10) H/O eye surgery ?Z98.890 - Other specified postprocedural states (ICD-10) Meds Home Medications and Allergies Home Medications ?Medication ?Instructions ?Recorded ?Confirmed ?Type epinephrine 0.3 mg/0.3 mL 0.3 mg IM DAILY PRN anaphylaxis 08/30/23 02/09/24 History injection, auto-injector latanoprost 0.005 % eye drops 1 drp ophthalmic (eye) .QHS 08/30/23 02/09/24 History omeprazole 40 mg capsule,delayed 40 mg PO QAM 08/30/23 02/09/24 History release rosuvastatin 5 mg tablet 5 mg PO DAILY 08/30/23 02/09/24 History cyclobenzaprine 5 mg tablet 5 mg PO DAILY 12/08/23 02/09/24 History gabapentin 100 mg capsule 100 mg PO DAILY 12/08/23 02/09/24 History Allergies Allergy/AdvReac Type Severity Reaction Status Date / Time bee venom protein (honey bee) Allergy Severe Verified 02/09/24 10:05 Penicillins Allergy Severe Verified 02/09/24 10:05 Exam Constitutional Documenting provider has reviewed patient's vital signs: yes Common normals: no apparent distress, oriented x3, healthy appearing, alert and well nourished General appearance: cooperative [facility] Common normals: normocephalic, hearing grossly normal bilaterally and moist oral mucous membranes Head and scalp: normocephalic Eye Common normals: PERRL Pupil: PERRL Neck & C-Spine Common normals: full ROM General: normal visual inspection Chest Common normals: inspection of chest normal Respiratory Common normals: normal respiratory effort, no retractions and no use of accessory muscles Back & Pelvis Lumbar spine/lower back: ROM limited, pain with ROM and straight leg raise negative bilaterally Sacroiliac joints: SI joints normal Other: sensation intact BLE strength 5/5 in BLE facet loading positive bilaterally pain over L4-S1 facets negative SIJ exam, negative LA FADIR thigh thrust and gaenslens Extremity Common normals: normal to inspection and full ROM Neuro Common normals: oriented x3, CN's II-XII intact bilaterally, moves all extremities, no focal motor deficits, no sensory deficits noted and deep tendon reflexes 2+ bilaterally Sensorium/orientation: alert Motor exam: strength 5/5 throughout and no movement abnormalities noted Psych Common normals: mental status grossly normal, thought process normal, cooperative, affect normal, speech normal and activity/motor behavior normal Speech: normal speech Thought process: normal thought process Results Additional Findings Additional findings: If on a controlled substance or opioids, I have checked an [place] report on this patient and there are no aberrancies noted in the prescribing history.??If on a controlled substance or opioid a drug screen was completed and reviewed within the last year, and if there has not been a drug screen completed we ordered one today to monitor higher risk, state monitored pain medication use. As part of providing excellent, safe, comprehensive care, the following was completed at our patient's visit: 1. A medication reconciliation and review to ensure accurate knowledge of current/active medications, including asking our patients to inform us about any [id number] medications or herbal remedies/nutritional supplements/alternative remedies. 2. A review to specifically ensure our patients have had annual screening for screening for depression, screening for tobacco use, and screening for unhealthy alcohol use. For concerning screenings had a discussion with the patient, provided patient education, and recommended follow-up with primary care provider when appropriate. If patient noted with a risk of falling, they received education on strength, gait, and balance training to prevent future risk of falling. Assessment and Plan Assessment and Plan (1) Lumbar spondylosis: Assessment and Plan: The patient has had over 3 months of moderate to severe low back and SIJ pain with functional impairment and inadequate response to conservative care including NSAIDS (unless there are contraindication such as concurrent blood thinners), multiple oral or topical pain medications, and home exercise program/physical therapy.? Patient has completed >6 weeks of guided home exercise program and/or formal physical therapy program without relief of their symptoms.? I have reviewed the imaging of the lumbar spine and no red flags were identified.? ? We discussed the risks and benefits of the procedure with the patient, and we are NOT planning on using sedation as outlined in the guidelines from Medicare unless there is a documented reason that sedation would be strongly recommended.?? ?The procedure will be completed with fluoroscopic guidance.? (2) Sacroiliac joint dysfunction of both sides: (3) Lumbar stenosis with neurogenic claudication: (4) Myofascial pain: Plan bilateral L4-5 L5-S1 facet medial branch block x2 working towards RFA continue medications continue HEP as tolerated f/u 1 week after injection
== END 2024-02-19 11:00 | disposition home or self-care (01) ==
LOC: PM 11:00
PROVIDERS: PCP Family Medicine; Visit Provider Nurse Practitioner
DX: M47.816 Spondylosis without myelopathy or radiculopathy, lumbar region (principal); M53.3 Sacrococcygeal disorders, not elsewhere classified; M48.062 Spinal stenosis, lumbar region with neurogenic claudication; M79.18 Myalgia, other site
CPT/HCPCS: G0463

== ENCOUNTER 2024-03-15 07:54 | Day surgery (SDC) | payer MEDICAID, SELFPAY ==
[2024-03-15 08:15] VITALS: BP 141/75; PULSE 78; TEMP 36.7; O2SAT 98
[2024-03-15 08:55] VITALS: BP 148/63; PULSE 67; O2SAT 98
[2024-03-15 08:56] VITALS: BP 141/67; PULSE 66; O2SAT 97
[2024-03-15] MEDS: BUPIVACAINE HCL 0.25% PF 25 MG/10 ML VIAL 8 ML INJ (08:58)
--- NOTE | 2024-03-15 08:58 | W.PM.PROCNOT ---
Date of procedure: 03/15/24 Pre-op diagnosis: Lumbar spondylosis Post-op diagnosis: same as pre-op Procedure: Procedure: Bilateral L4-5, L5-S1 medial branch block Medications: Bupivacaine 0.25% 6cc The patient was seen and examined in the preoperative holding area.? An informed consent was obtained and placed on the chart.? The patient was brought to the medical procedure unit and placed in the prone position.? A timeout was completed verifying correct patient, procedure site, positioning, plan, and special equipment.? Using aseptic technique, the needle was placed at left L4. Under direct fluoroscopic visualization a Quincke-tipped spinal needle was advanced to the junction of the superior articulating process with the transverse process at the designated medial branch segment.? Preceded by negative aspiration, the above-mentioned injectate was placed in 1 mL aliquots.? The procedure was repeated at left L5, S1.? The needle was removed and insertion site was covered. The same procedure, at the same levels, was completed on the right side. The patient was taken to the postprocedural recovery area and monitored for an appropriate length of time before found suitable for discharge in the company of a responsible adult. Anesthesia: Local Surgeon: Richard Lezama Pathology: none sent Condition: stable Disposition: no change
[2024-03-15] MEDS: LIDOCAINE HCL 2% 400 MG/20 ML MDV INJ (08:59)
== END 2024-03-15 09:02 | disposition home or self-care (01) ==
PROVIDERS: PCP Family Medicine; Visit Provider Anesthesiology
DX: M47.816 Spondylosis without myelopathy or radiculopathy, lumbar region (principal)
CPT/HCPCS: 64493; 64494

== ENCOUNTER 2024-03-25 12:28 | Outpatient (OUT) | payer MEDICAID, SELFPAY ==
--- NOTE | 2024-03-25 12:41 | PM.CN ---
Consult Note: HPI Data of Consult Patient: known to practice within the last 3 years Requesting Physician: Wilma Bhardwaj NP Primary Care Provider: Britt Goodman Consult Narrative Reason for consult: f/u Narrative: Homer Eastman a pleasant 58 year old male presents for evaluation and management of chronic low back pain. Patient reporting pain 3.5/10 in low back and sharp, at its worst 8/10, increases with twisting standing walking listing stairs bending and activity. pain decreases with sitting lying. Patient finds mild benefit to current medication regimen. Continues to engage in HEP greater than 6 weeks without significant improvement. Patient recently underwent bilateral L4-5 L5-S1 facet medial branch block #2 with >80% improvement in low back pain and functional ability immediately following and 1 day after injection. LOS 32%. cc:: CC: Wilma Bhardwaj NP Review of Systems ROS Status of ROS 10 or more systems reviewed and unremarkable except as noted in history and below [facility] Medical History (Updated 02/03/24 @ 15:32 by Manasa Hope) Glaucoma ?H40.9 - Unspecified glaucoma (ICD-10) Obesity ?E66.9 - Obesity, unspecified (ICD-10) Smoker ?F17.200 - Nicotine dependence, unspecified, uncomplicated (ICD-10) Low back pain ?M54.50 - Low back pain, unspecified (ICD-10) Neck pain ?M54.2 - Cervicalgia (ICD-10) Osteoarthritis ?M19.90 - Unspecified osteoarthritis, unspecified site (ICD-10) Bipolar depression ?F31.9 - Bipolar disorder, unspecified (ICD-10) Carpal tunnel syndrome ?G56.00 - Carpal tunnel syndrome, unspecified upper limb (ICD-10) Chronic GERD ?K21.9 - Gastro-esophageal reflux disease without esophagitis (ICD-10) Acid reflux ?K21.9 - Gastro-esophageal reflux disease without esophagitis (ICD-10) Sleep apnea ?G47.30 - Sleep apnea, unspecified (ICD-10) High cholesterol ?E78.00 - Pure hypercholesterolemia, unspecified (ICD-10) Surgical History H/O neck surgery ?Z98.890 - Other specified postprocedural states (ICD-10) H/O elbow surgery ?Z98.890 - Other specified postprocedural states (ICD-10) H/O carpal tunnel repair ?Z98.890 - Other specified postprocedural states (ICD-10) Hx of tonsillectomy ?Z90.89 - Acquired absence of other organs (ICD-10) H/O eye surgery ?Z98.890 - Other specified postprocedural states (ICD-10) Meds Home Medications and Allergies Home Medications ?Medication ?Instructions ?Recorded ?Confirmed ?Type epinephrine 0.3 mg/0.3 mL 0.3 mg IM DAILY PRN anaphylaxis 08/30/23 03/15/24 History injection, auto-injector latanoprost 0.005 % eye drops 1 drp ophthalmic (eye) .QHS 08/30/23 03/15/24 History omeprazole 40 mg capsule,delayed 40 mg PO QAM 08/30/23 03/15/24 History release rosuvastatin 5 mg tablet 5 mg PO DAILY 08/30/23 03/15/24 History cyclobenzaprine 5 mg tablet 5 mg PO DAILY 12/08/23 02/09/24 History gabapentin 100 mg capsule 100 mg PO DAILY 12/08/23 03/15/24 History Allergies Allergy/AdvReac Type Severity Reaction Status Date / Time bee venom protein (honey bee) Allergy Severe Verified 03/15/24 08:17 Penicillins Allergy Severe Verified 03/15/24 08:17 Exam Constitutional Documenting provider has reviewed patient's vital signs: yes Common normals: no apparent distress, oriented x3, healthy appearing, alert and well nourished General appearance: cooperative [facility] Common normals: normocephalic, hearing grossly normal bilaterally and moist oral mucous membranes Head and scalp: normocephalic Eye Common normals: PERRL Pupil: PERRL Neck & C-Spine Common normals: full ROM General: normal visual inspection Chest Common normals: inspection of chest normal Respiratory Common normals: normal respiratory effort, no retractions and no use of accessory muscles Back & Pelvis Lumbar spine/lower back: ROM limited, pain with ROM and straight leg raise negative bilaterally Sacroiliac joints: SI joints normal Other: sensation intact BLE strength 5/5 in BLE facet loading positive bilaterally pain over L4-S1 facets negative SIJ exam, negative LA FADIR thigh thrust and gaenslens Extremity Common normals: normal to inspection and full ROM Neuro Common normals: oriented x3, CN's II-XII intact bilaterally, moves all extremities, no focal motor deficits, no sensory deficits noted and deep tendon reflexes 2+ bilaterally Sensorium/orientation: alert Motor exam: strength 5/5 throughout and no movement abnormalities noted Psych Common normals: mental status grossly normal, thought process normal, cooperative, affect normal, speech normal and activity/motor behavior normal Speech: normal speech Thought process: normal thought process Results Additional Findings Additional findings: If on a controlled substance or opioids, I have checked an [place] report on this patient and there are no aberrancies noted in the prescribing history.??If on a controlled substance or opioid a drug screen was completed and reviewed within the last year, and if there has not been a drug screen completed we ordered one today to monitor higher risk, state monitored pain medication use. As part of providing excellent, safe, comprehensive care, the following was completed at our patient's visit: 1. A medication reconciliation and review to ensure accurate knowledge of current/active medications, including asking our patients to inform us about any [id number]-ska-qddfxau medications or herbal remedies/nutritional supplements/alternative remedies. 2. A review to specifically ensure our patients have had annual screening for screening for depression, screening for tobacco use, and screening for unhealthy alcohol use. For concerning screenings had a discussion with the patient, provided patient education, and recommended follow-up with primary care provider when appropriate. If patient noted with a risk of falling, they received education on strength, gait, and balance training to prevent future risk of falling. Assessment and Plan Assessment and Plan (1) Lumbar spondylosis: Assessment and Plan: The patient has had over 3 months of moderate to severe low back and SIJ pain with functional impairment and inadequate response to conservative care including NSAIDS (unless there are contraindication such as concurrent blood thinners), multiple oral or topical pain medications, and home exercise program/physical therapy.? Patient has completed >6 weeks of guided home exercise program and/or formal physical therapy program without relief of their symptoms.? I have reviewed the imaging of the lumbar spine and no red flags were identified.? ? We discussed the risks and benefits of the procedure with the patient, and we are NOT planning on using sedation as outlined in the guidelines from Medicare unless there is a documented reason that sedation would be strongly recommended.?? ?The procedure will be completed with fluoroscopic guidance.? (2) Sacroiliac joint dysfunction of both sides: (3) Lumbar stenosis with neurogenic claudication: (4) Myofascial pain: Plan bilateral L4-5 L5-S1 medial branch RFA with 10mg PO valium continue medications continue HEP as tolerated f/u 1 month after RFA
--- OUTSIDE RECORDS SUMMARY | 2024-03-25 12:41 | XMS_ITS | CCD ---
Author Organization [facility] Care Team Providers Care Homeworker Name Role Phone Harvey Holt Unavailable NON STAFF Primary Care Provider UnavailDAPHNEY Sotelo Attending Provider Rummassiellayamila, DO Britt Primary Care Provider Rex, DO Britt Primary Care Provider MD Josué Evangelista Attending Provider Rumcoco, DO Britt Primary Care Provider MD Josué Evangelista Attending Provider [phone] Candida Hinkle Admitting Unavailable Candida Hinkle Attending [...] Care Unavailable Josué Evangelista Unavailable [facility] Primary Care Unava ilable MITCHELL TRAYLOR Admitting Unavailable MERCEDES ENRIQUEZ Consulting Unavailable MITCHELL TRAYLOR Attending Unavailable JONN HARGROVE Consulting Unavailable MITCHELL TRAYLOR Consulting Unavailable MISJono, DR GARCIAS Attending Unavailable MISC, DR GARCIAS Consulting Unavailable [facility] Primary Care Unava ilable RADHA, DR GARCIAS Admitting Unavailable RUMSCHLAG, BRITT Primary Care Unavailable YVONNE CAMARENA Referring Unavailable YVONNE CAMARENA Referring Unavailable RUMSCHLAG, BRITT Primary Care Unavailable CANDIS RENTERIA Admitting Unavailable CANDIS RENTERIA Attending Unavailable [facility] Primary Care Unavailable Lise RAWLS, Richard Guaman Attending Unavailable Lise RAWLS, Richard Guaman Attending Unavailable Lise RAWLS, Richard Guaman Attending Unavailable Lise RAWLS, Richard Guaman Attending Unavailable Giedemilia RAWLS, Richard Guaman Attending Unavailable Allergies Allergy Classification Reported Allergen(s) Allergy Type Date of Onset Reaction(s) Facility (7 sources) penicillAMINE Drug Allergy Unknown [facility] [employer] Other (7 sources) Bee Sting Drug allergy Unknown [employer] [facility] [employer] Other (5 sources) Penicillins; Translations: [Penicillins] Allergy to substance 10-02-20 21 Unknown Reaction [facility] (5 sources) venom-honey bee; Translations: [venom-honey bee] Allergy to substance 10-02-20 21 Swelling [facility] (1 source) bee venom Drug allergy (disorder) [facility] (1 source) Penicillin Drug Allergy [facility] Medications Current Medications Medication Drug Class(es) [...] Direct Exam NEGATIVE Report Status FINAL 10/16/2023 [facility] Comment on above: Performed By: #### F HPY #### [employer] [address] [place] [address] [id number] [employer] Designer: Guy Ramey MD [facility] [address] [place] [address] [employer] Designer: Justus Darby MD Surgical Pathology Reporton 10-15-2023 Surgical Pathology Report (NOTE) Path Number: [id number] -- Diagnosis -- A. 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 No dysplasia seen. B. Stomach, antrum, endoscopic biopsy: Superficial gastric antral mucosa with no specific abnormality, negative for Helicobacter pylori. Dianelys Mcgraw. Electronically Signed Out 10/17/2023 Clinical Information Pre-op Diagnosis: GASTROESOPHAGEAL REFLUX DISEASE, [...] for each. Microscopic examination performed. Processing Lab: [address] [id number] Interpretation Performed at [address] [id number] SURGICAL PATHOLOGY CONSULTATION Patient Name: ROSA EASTMAN [facility] Rec: [id number] [facility] ANATOMIC PATHOLOGY [address] [place] [id number] Normal [facility] CBC with Diffon 10-14-2023 Abs. Basophil 0.17 k/uL Normal 0.00-0.20 [facility] Comment on above: Performed By: #### C DP #### [address] Garcia, [place] [address] [employer] Designer: Justus Darby MD Abs.Imm.Granulocyte 0.04 k/uL Normal 0.00-0.30 [facility] Comment on above: Performed By: #### C DP #### [address] Garcia, [place] [address] [employer] Designer: Justus Darby MD Abs.Neutrophil (Seg) 5.08 k/uL Normal 1.50-8.10 [facility] Comment on above: Performed By: #### C DP #### [address] [place] [address] [employer] Designer: Justus Darby MD Basophils/100 WBC (Bld) 2 % Normal 0-2 [facility] Comment on above: Performed By: #### C DP #### [address] Garcia, [place] [address] [employer] Designer: Justus Darby MD Eosinophils (Bld) [#/Vol] 0.43 10*3/uL Normal 0.00-0.44 [facility] Comment on above: Performed By: #### C DP #### [address] Garcia, [place] [address] [employer] Designer: Justus Darby MD Eosinophils/100 WBC (Bld) 4 % Normal 1-4 [facility] Comment on above: Performed By: #### C DP #### [address] Garcia, [facility] [employer] Designer: Justus Darby MD Erythrocyte distribution width (RBC) [Ratio] 12.3 % Normal 11.8-14.4 [facility] Comment on above: Performed By: #### C DP #### [place] [address] [place], [place] [id number] [employer]er: Justus Darby MD Hematocrit (Bld) [Volume fraction] 44.4 % Normal 40.7-50.3 [facility] Comment on above: Performed By: #### C DP #### [facility] [address] [facility] [employer]er: Justus Darby MD Hemoglobin (Bld) [Mass/Vol] 14.6 g/dL Normal 13.0-17.0 [facility] Comment on above: Performed By: #### C DP #### [facility] [address] [facility] [employer] Designer: Justus Darby MD Immature granulocytes/100 WBC (Bld) 0 % Normal 0 [facility] Comment on above: Performed By: #### C DP #### [facility] [address] [place] [address] Dr. Garcia, [facility] [employer]er: Justus Darby MD Lymphocytes (Bld) [#/Vol] 3.86 10*3/uL High 1.10-3.70 [facility] Comment on above: Performed By: #### C DP #### [address] Garcia, [facility] [employer]er: Justus Darby MD Lymphocytes/100 WBC (Bld) 36 % Normal 24-43 [facility] Comment on above: Performed By: #### C DP #### [facility] [address] [place], [facility] [employer]er: Justus Darby MD MCH (RBC) [Entitic mass] 30.9 pg Normal 25.2-33.5 [facility] Comment on above: Performed By: #### C DP #### [facility] [address] Garcia [facility] [employer]er: Justus Darby MD MCHC (RBC) [Mass/Vol] 32.9 g/dL Normal 28.4-34.8 [facility] Comment on above: Performed By: #### C DP #### [facility] [address] [place] [address] [employer] Designer: Justus Darby MD MCV (RBC) [Entitic vol] 93.9 fL Normal 82.6-102.9 [facility] Comment on above: Performed By: #### C DP #### [address] Garcia, [facility] [employer] Designer: Justus Darby MD Monocytes (Bld) [#/Vol] 1.05 10*3/uL Normal 0.10-1.20 [facility] Comment on above: Performed By: #### C DP #### [address] Garcia, [facility] [employer] Designer: Justus Darby MD Monocytes/100 WBC (Bld) 10 % Normal 3-12 [facility] Comment on above: Performed By: #### C DP #### [address] Garcia, [place] [address] [employer] Designer: Justus Darby MD Neutrophil (Seg) 48 % Normal 36-65 [facility] Comment on above: Performed By: #### C DP #### [address] Garcia, [facility] [employer] Designer: Justus Darby MD NRBC Automated 0.0 per 100 WBC Normal 0.0 [facility] Comment on above: Performed By: #### C DP #### [address] Garcia, [facility] [employer] Designer: Justus Darby MD Platelet mean volume (Bld) [Entitic vol] 9.6 fL Normal 8.1-13.5 [facility] Comment on above: Performed By: #### C DP #### [address] Garcia, [place] [id number] [employer] Designer: Justus Darby MD Platelets (Bld) [#/Vol] 297 10*3/uL Normal 138-453 [facility] Comment on above: Performed By: #### C DP #### [facility] [address] [place], [place] [id number] [employer]er: Justus Darby MD RBC (Bld) [#/Vol] 4.73 10*6/uL Normal 4.21-5.77 [facility] Comment on above: Performed By: #### C DP #### [facility] [address] [place], [place] [id number] [employer] Designer: Justus Darby MD WBC (Bld) [#/Vol] 10.6 10*3/uL Normal 3.5-11.3 [facility] Comment on above: Performed By: #### C DP #### [facility] [address] [place], [place] [id number] [employer] Designer: Justus Darby MD Basic Metabolic Panelon 03-0 Anion gap [Moles/Vol] 9.8 mmol/L Normal 6.0-15.0 [facility] Comment on above: Performed By: #### C BC, BMP #### [facility] [address] [place] [address] [place] Calcium [Mass/Vol] 9.1 mg/dL Normal 8.2-10.2 [facility] Comment on above: Result Comment: PERF ORMED BY: [facility] [address] [place] [address] PATHOLOGIST VERTICAL BORER GENEVIEVE CANNON M.D. Performed By: #### C BC, BMP #### [facility] [address] [place] [address] [place] Chloride [Moles/Vol] 104 mmol/L Normal 95-114 [facility] Comment on above: Performed By: #### C BC, BMP #### [facility] [address] CO2 [Moles/Vol] 25.9 mmol/L Normal 22.0-30.0 [facility] Comment on above: Performed By: #### C BC, BMP #### [address] Creatinine [Mass/Vol] 0.98 mg/dL Normal 0.64-1.27 [facility] Comment on above: Performed By: #### C BC, BMP #### [address] Estimated GFR ( Camila > 60 [facility] Comment on above: Result Comment: GFR estimated reference range: According to KDOQI guidelines, <60 ml/min/1.73m2 is sufficient to diagnose a patient with chronic kidney disease. Performed By: #### C BC, BMP #### [address] Estimated GFR (Non- Am > 60 [facility] Comment on above: Performed By: #### C BC, BMP #### [address] Glucose [Mass/Vol] 82 mg/dL Normal 70-100 [facility] Comment on above: Result Comment: [place] om Glucose Reference Range is dependent on time and content of last meal. Glucose of more than 200 mg/dL in a nonstressed, ambulatory subject supports the diagnosis of Diabetes Mellitus. ADA recommended reference range Performed By: #### C BC, BMP #### [place] [address] [place] Potassium [Moles/Vol] 3.7 mmol/L Normal 3.5-5.1 [facility] Comment on above: Performed By: #### C BC, BMP #### [place] [address] [place] Sodium [Moles/Vol] 136 mmol/L Normal 136-146 [facility] Comment on above: Performed By: #### C BC, BMP #### [place] [address] [place] Urea nitrogen [Mass/Vol] 11 mg/dL Normal 9-23 [facility] Comment on above: Performed By: #### C BC, BMP #### [facility] [address] [place] [address] [place] Basophils Auto (Bld) [#/Vol] Ordered By: Josué Evangelista on 01-13-2023 Basophils (Bld) [#/Vol] 0.1 10*3/uL 0.0-0.2 [facility] Basophils/100 WBC Auto (Bld) Ordered By: Josué Evangelista on 01-13-2023 Basophils/100 WBC (Bld) 1.2 % . [facility] Calcium [Mass/volume] in Ser um or PlasmaOrdered By: Josué Evangelista on 01-13-2023 Calcium [Mass/Vol] 9.1 mg/dL 8.2-10.2 [facility] Carbon dioxide, total [Moles /volume] in Serum or PlasmaOrdered By: Josué Evangelista on 01-13-2023 CO2 [Moles/Vol] 25.9 mmol/L 22.0-30.0 [facility] Chloride [Moles/volume] in S lai or PlasmaOrdered By: Josué Evangelista on 01-13-2023 Chloride [Moles/Vol] 104 mmol/L 95-114 [facility] Complete Blood Count Auto Di ffon 01-13-2023 Basophils (Bld) [#/Vol] 0.1 10*3/uL Normal 0.0-0.2 [facility] Comment on above: Result Comment: PERF ORMED BY: [facility] [address] [place] [address] PATHOLOGIST VERTICAL BORER GENEVIEVE CANNON M.D. Performed By: #### C MICHELLE, BMP #### [facility] [address] Basophils/100 WBC (Bld) 1.2 % Normal . [facility] Comment on above: Performed By: #### C BC, BMP #### [facility] [address] Eosinophils (Bld) [#/Vol] 0.5 10*3/uL High 0.0-0.45 [facility] Comment on above: Performed By: #### C BC, BMP #### [facility] [address] [place] [address] [place] Eosinophils/100 WBC (Bld) 4.7 % Normal . [facility] Comment on above: Performed By: #### C BC, BMP #### [facility] [address] Erythrocyte distribution width (RBC) [Ratio] 12.6 % Normal 12.0-14.8 [facility] Comment on above: Performed By: #### C BC, BMP #### [facility] [address] Hematocrit (Bld) [Volume fraction] 41.2 % Normal 38.8-50.0 [facility] Comment on above: Performed By: #### C BC, BMP #### [facility] [address] Hemoglobin (Bld) [Mass/Vol] 14.1 g/dL Normal 13.0-17.0 [facility] Comment on above: Performed By: #### C BC, BMP #### [facility] [address] [place] [address] [place] Lymphocytes (Bld) [#/Vol] 3.4 10*3/uL Normal 1.00-4.8 [facility] Comment on above: Performed By: #### C BC, BMP #### [place] [address] [place] Lymphocytes/100 WBC (Bld) 33.3 % Normal . [facility] Comment on above: Performed By: #### C BC, BMP #### [facility] [address] [place] [address] [place] MCH (RBC) [Entitic mass] 31.7 pg Normal 27.5-35.2 [facility] Comment on above: Performed By: #### C BC, BMP #### [facility] [address] MCV (RBC) [Entitic vol] 92.3 fL Normal 83.5-101 [facility] Comment on above: Performed By: #### C BC, BMP #### [facility] [address] [place] [id number] [facility] Mean Corpuscular HGB Conc 34.4 g/dL Normal 32.5-35.6 [facility] Comment on above: Performed By: #### C BC, BMP #### [facility] [address] [place] [address] [place] Monocytes (Bld) [#/Vol] 1.0 10*3/uL High 0.0-0.8 [facility] Comment on above: Performed By: #### C BC, BMP #### [facility] [address] [place] [address] [place] Monocytes/100 WBC (Bld) 10.1 % Normal . [facility] Comment on above: Performed By: #### C BC, BMP #### [facility] [address] [place] [address] [place] Neutrophils (Bld) [#/Vol] 5.2 10*3/uL Normal 1.8-7.7 [facility] Comment on above: Performed By: #### C BC, BMP #### [facility] [address] [place] [address] [place] Neutrophils/100 WBC (Bld) 50.7 % Normal . [facility] Comment on above: Performed By: #### C BC, BMP #### [facility] [address] [place] [address] [place] NRBC% 0.1 /100{WBC} Normal 0-0.5 [facility] Comment on above: Performed By: #### C BC, BMP #### [facility] [address] [place] [address] [place] Platelet mean volume (Bld) [Entitic vol] 7.8 fL Normal 6.6-10.1 [facility] Comment on above: Performed By: #### C BC, BMP #### [facility] [address] [place] [address] [place] Platelets (Bld) [#/Vol] 268 10*3/uL Normal 150-450 [facility] Comment on above: Performed By: #### C BC, BMP #### [facility] [address] RBC (Bld) [#/Vol] 4.46 10*6/uL Normal 3.90-5.60 [facility] Comment on above: Performed By: #### C BC, BMP #### [facility] [address] WBC (Bld) [#/Vol] 10.3 10*3/uL Normal 4.1-10.5 [facility] Comment on above: Performed By: #### C BC, BMP #### [facility] [address] Creatinine and Glomerular fi ltration rate.predicted panel (S/P/Bld)Ordered By: Josué Evangelista on 01-13-2023 Creatinine [Mass/Vol] 0.98 mg/dL 0.64-1.27 [facility] ECG 12 lead ECGon 01-13-2023 ECG 12 lead ECG [facility] [place] [address] [place] [address] Electrocardiograph Report Signed Patient: Rosa Eastman MR#: [id number] : 1965 Acct:[id number] Age/Sex: 57 / M ADM Date: 01/13/23 Loc: Room: Type: [facility] Attending Dr: Josué Evangelista MD Ordering [...] Marylin Eisenberg MD 0 01/14/23 1534 Normal [facility] Eosinophils Auto (Bld) [#/Vo l]Ordered By: Josué Evangelista on 01-13-2023 Eosinophils (Bld) [#/Vol] 0.5 10*3/uL 0.0-0.45 [facility] Eosinophils/100 WBC Auto (Bl d)Ordered By: Josué Evangelista on 01-13-2023 Eosinophils/100 WBC (Bld) 4.7 % . [facility] Erythrocyte distribution wid th Auto (RBC) [Ratio]Ordered By: Josué Evangelista on 01-13-2023 Erythrocyte distribution width (RBC) [Ratio] 12.6 % 12.0-14.8 [facility] Estimated glomerular filtrat ion rate (GFR) non- AmericanOrdered By: Josué Evangelista on 01-13-2023 GFR/1.73 sq M.predicted among non-blacks MDRD (S/P/Bld) [Vol rate/Area] > 60 mL/Min [facility] Glucose [Mass/volume] in Ser um or PlasmaOrdered By: Josué Evangelista on 01-13-2023 Glucose [Mass/Vol] 82 mg/dL 70-100 [facility] Comment on above: ADA recommended refe rence rangeRandom Glucose Reference Range is dependent on time and content of last meal. Glucose of more than 200 mg/dL in a nonstressed, ambulatory subject supports the diagnosis of Diabetes Mellitus. Hematocrit Auto (Bld) [Volum e fraction]Ordered By: Josué Evangelista on 01-13-2023 Hematocrit (Bld) [Volume fraction] 41.2 % 38.8-50.0 [facility] Hemoglobin [Mass/volume] in BloodOrdered By: Josué Evangelista on 01-13-2023 Hemoglobin (Bld) [Mass/Vol] 14.1 g/dL 13.0-17.0 [facility] Leukocytes [#/volume] correc lesly for nucleated erythrocytes in Blood by Automated counOrdered By: Josué Evangelista on 01-13-2023 WBC corrected for nucl RBC Auto (Bld) [#/Vol] 10.3 10*3/uL 4.1-10.5 [facility] Lymphocytes Auto (Bld) [#/Vo l]Ordered By: Josué Evangelista on 01-13-2023 Lymphocytes (Bld) [#/Vol] 3.4 10*3/uL 1.00-4.8 [facility] Lymphocytes/100 WBC Auto (Bl d)Ordered By: Josué Evangelista on 01-13-2023 Lymphocytes/100 WBC (Bld) 33.3 % . [facility] MCH Auto (RBC) [Entitic mass ]Ordered By: Josué Evangelista on 01-13-2023 MCH (RBC) [Entitic mass] 31.7 pg 27.5-35.2 [facility] MCHC Auto (RBC) [Mass/Vol]Or dered By: Josué Evangelista on 01-13-2023 MCHC (RBC) [Mass/Vol] 34.4 g/dL 32.5-35.6 [facility] MCV Auto (RBC) [Entitic vol] Ordered By: Josué Evangelista on 01-13-2023 MCV (RBC) [Entitic vol] 92.3 fL 83.5-101 [facility] Monocytes Auto (Bld) [#/Vol] Ordered By: Josué Evangelista on 01-13-2023 Monocytes (Bld) [#/Vol] 1.0 10*3/uL 0.0-0.8 [facility] Monocytes/100 WBC Auto (Bld) Ordered By: Josué Evangelista on 01-13-2023 Monocytes/100 WBC (Bld) 10.1 % . [facility] Neutrophils Auto (Bld) [#/Vo l]Ordered By: Josué Evangelista on 01-13-2023 Neutrophils (Bld) [#/Vol] 5.2 10*3/uL 1.8-7.7 [facility] Neutrophils/100 WBC Auto (Bl d)Ordered By: Josué Evangelista on 01-13-2023 Neutrophils/100 WBC (Bld) 50.7 % . [facility] No Panel InformationOrdered By: Josué Evangelista on 01-13-2023 Estimated GFR () > 60 mL/Min [facility] Comment on above: GFR estimated refere nce range: According to KDOQI guidelines, <60 ml/min/1.73m2 is sufficient to diagnose a patient with chronic kidney disease. Pharmacy Creatinine Clearance (Chem N/A [facility] Nucleated erythrocytes [Pres ence] in Blood by Automated countOrdered By: Josué Evangelista on 01-13-2023 Nucleated RBC Auto Ql (Bld) 0.1 /100{WBC} 0-0.5 [facility] Platelet mean volume Auto (B ld) [Entitic vol]Ordered By: Josué Evangelista on 01-13-2023 Platelet mean volume (Bld) [Entitic vol] 7.8 fL 6.6-10.1 [facility] Platelets Auto (Bld) [#/Vol] Ordered By: Josué Evangelista on 01-13-2023 Platelets (Bld) [#/Vol] 268 10*3/uL 150-450 [facility] Potassium [Moles/volume] in Serum or PlasmaOrdered By: Josué Evangelista on 01-13-2023 Potassium [Moles/Vol] 3.7 mmol/L 3.5-5.1 [facility] RBC Auto (Bld) [#/Vol]Ordere d By: Josué Evangelista on 01-13-2023 RBC (Bld) [#/Vol] 4.46 10*6/uL 3.90-5.60 [facility] Serum or plasma anion gap de terminationOrdered By: Josué Evangelista on 01-13-2023 Anion gap [Moles/Vol] 9.8 mmol/L 6.0-15.0 [facility] Sodium [Moles/volume] in Ser um or PlasmaOrdered By: Josué Evangelista on 01-13-2023 Sodium [Moles/Vol] 136 mmol/L 136-146 [facility] Urea nitrogen [Mass/volume] in Serum or PlasmaOrdered By: Josué Evangelista on 01-13-2023 Urea nitrogen [Mass/Vol] 11 mg/dL 9- [facility] WBC Auto (Bld) [#/Vol]Ordere d By: Josué Evangelista on 01-13-2023 WBC (Bld) [#/Vol] 10.3 10*3/uL 4.1-10.5 [facility] XR cerv spine AP/LAT/FLX/EXT on 12-06-2022 XR cerv spine AP/LAT/FLX/EXT [facility] [place] [address] XRay Report Signed Patient: Rosa Eastman MR#: [id number] : 1965 Acct:[id number] Age/Sex: 57 / M ADM Date: 12/06/22 Loc: XD Room: Type: [facility] CLI Attending Dr: Josué Evangelista MD Copies [...] Erasmo Maddox M.D.12/06/2022 2:26 PM Dictation Location: [place] [address] Transcribed By: [facility] 12/06/22 142 Dictated By: Erasmo Maddox DO 12/06/22 142 Signed By: 12/06/22 1426 Normal [facility] CBC AUTO DIFFon 08-10-2022 BASO # 0.2 103/ul Critically high 0.0-0.1 [facility] Comment on above: Performed By: #### C BC #### [facility] [address] [place] [address] [address] Mars Sanders Basophils/100 WBC (Bld) 2.0 % Normal 0.2-2.0 [facility] Comment on above: Performed By: #### C BC #### [facility] [address] [place] [address] Dr. Mars Sanders EO # 0.5 103/ul Normal 0.0-0.7 [facility] Comment on above: Performed By: #### C BC #### [facility] [address] [place] [address] Dr. Mars Sanders Eosinophils/100 WBC (Bld) 5.7 % Normal 0.9-7.0 [facility] Comment on above: Performed By: #### C BC #### [facility] [address] [place] [address] Dr. Mars Sanders Erythrocyte distribution width (RBC) [Ratio] 12.4 % Normal 11.0-15.0 [facility] Comment on above: Performed By: #### C BC #### [facility] [address] [place] [address] Dr. Mars Sanders Hematocrit (Bld) [Volume fraction] 41.8 % Critically low 42.0-54.0 [facility] Comment on above: Performed By: #### C BC #### [facility] [address] [place] [address] Dr. Mars Sanders Hemoglobin (Bld) [Mass/Vol] 14.0 g/dL Normal 14.0-18.0 [facility] Comment on above: Performed By: #### C BC #### [facility] [address] [place] [address] Dr. Mars Sanders IG # 0.02 10e3/ul Normal 0.00-0.03 [facility] Comment on above: Performed By: #### C BC #### [facility] [address] [place] [address] Dr. Mars Sanders IG % 0.2 % Normal 0.0-0.5 [facility] Comment on above: Performed By: #### C BC #### [facility] [address] [place] [address] Dr. Mars Sanders LYMPH # 3.1 103/ul Normal 1.2-3.8 [facility] Comment on above: Performed By: #### C BC #### [facility] [address] [place] [address] [address] Mars Sanders Lymphocytes/100 WBC (Bld) 36.3 % Normal 20.5-60.0 [facility] [facility] Comment on above: Performed By: #### C BC #### [facility] [address] [address] [address] Mars Sanders MANUAL DIFF REQ NO Normal [facility] Comment on above: Performed By: #### C BC #### [facility] [address] [place] [address] Dr. Mars Sanders MCH (RBC) [Entitic mass] 31.4 pg Normal 25.9-34.0 [facility] Comment on above: Performed By: #### C BC #### [facility] [address] [place] [address] Dr. Mars Sanders MCHC (RBC) [Mass/Vol] 33.5 g/dL Normal 29.9-35.2 [facility] Comment on above: Performed By: #### C BC #### [facility] [address] [place] [address] Dr. Mars Sanders MCV (RBC) [Entitic vol] 93.7 fL Normal 80.0-94.0 [facility] Comment on above: Performed By: #### C BC #### [facility] [address] [place] [address] Dr. Mars Sanders MONO # 0.8 103/ul Normal 0.3-0.8 [facility] Comment on above: Performed By: #### C BC #### [facility] [address] [place] [address] Dr. Mars Sanders Monocytes/100 WBC (Bld) 10.0 % Normal 1.7-12.0 [facility] Comment on above: Performed By: #### C BC #### [facility] [address] [place] [address] Dr. Mars Sanders NEUT # 3.9 103/ul Normal 1.4-6.5 [facility] Comment on above: Performed By: #### C BC #### [facility] [address] [address] [address] Mars Sanders Neutrophils/100 WBC (Bld) 45.8 % Normal 43.0-75.0 [facility] Comment on above: Performed By: #### C BC #### [facility] [address] [address] [address] Mars Sanders Platelet mean volume (Bld) [Entitic vol] 9.4 fL Critically low 9.5-13.5 [facility] Comment on above: Performed By: #### C BC #### [facility] [address] [address] [address] Mars Sanders PLT 251 103/ul Normal 150-450 [facility] Comment on above: Performed By: #### C BC #### [facility] [address] [place] [address] Dr. Mars Sanders RBC 4.46 106/ul Critically low 4.70-6.10 [facility] Comment on above: Performed By: #### C BC #### [facility] [address] [address] [address] Mars Sanders WBC 8.4 103/ul Normal 4.0-11.0 [facility] Comment on above: Performed By: #### C BC #### [facility] [address] [place] [address] Dr. Mars Sanders D-DIMERon 08-10-2022 D-DIMER 0.35 mg/L FEU Normal <=0.59 [facility] Comment on above: Performed By: #### D DIM #### [facility] [address] [place] [address] Dr. Mars Sanders D-DIMER COMMENTS SEE BELOW Normal [facility] Comment on above: Result Comment: Incr eases [...] hospitalization. Performed By: #### D DIM #### [facility] [address] [address] [address] Mars Sanders PROF 14(COMP METB)on 022 Albumin [Mass/Vol] 3.8 g/dL Normal 3.4-5.0 [facility] Comment on above: Performed By: #### H ALESSIO, CMP #### [facility] [address] [address] [address] Mars Sanders Albumin/Globulin [Mass ratio] 1.0 {ratio} Normal [facility] Comment on above: Performed By: #### H ALESSIO, CMP #### [facility] [address] [place] [address] Dr. Mars Sanders ALP [Catalytic activity/Vol] 127 U/L Critically high 46-116 [facility] Comment on above: Performed By: #### H ALESSIO, CMP #### [facility] [address] [place] [address] Dr. Mars Sanders ALT [Catalytic activity/Vol] 30 U/L Normal 16-63 [facility] Comment on above: Performed By: #### H ALESSIO, CMP #### [facility] [address] [place] [address] Dr. Mars Sanders Anion gap [Moles/Vol] 13.5 mmol/L Normal [facility] Comment on above: Performed By: #### H ALESSIO, CMP #### [facility] [address] [place] [address] Dr. Mars Sanders AST [Catalytic activity/Vol] 20 U/L Normal 15-37 [facility] Comment on above: Performed By: #### H ALESSIO, CMP #### [facility] [address] [place] [address] Dr. Mars Sanders Bilirubin [Mass/Vol] 0.3 mg/dL Normal 0.2-1.0 [facility] Comment on above: Performed By: #### H ALESSIO, CMP #### [facility] [address] [place] [address] Dr. Mars Sanders Calcium [Mass/Vol] 8.7 mg/dL Normal 8.5-10.1 [facility] Comment on above: Performed By: #### H STROPN, CMP #### [facility] [address] [address] [address] Mars Sanders Chloride [Moles/Vol] 105 mmol/L Normal 98-107 [facility] Comment on above: Performed By: #### H STROPN, CMP #### [facility] [address] [address] [address] Mars Sanders CO2 [Moles/Vol] 25.4 mmol/L Normal 21.0-32.0 [facility] Comment on above: Performed By: #### H STROPN, CMP #### [facility] [address] [place] [address] Dr. Mars Sanders Creatinine [Mass/Vol] 0.98 mg/dL Normal 0.70-1.30 [facility] Comment on above: Performed By: #### H STROPN, CMP #### [facility] [address] [place] [address] Dr. Mars Sanders EGFR-AF BAHRAINI >60 Normal >=60 [facility] Comment on above: Performed By: #### H STROPN, CMP #### [facility] [address] [place] [address] Dr. Mars Sanders EGFR-NON AF BAHRAINI >60 Normal >=60 [facility] Comment on above: Performed By: #### H MIKEYPN, CMP #### [facility] [address] [place] [address] Dr. Mars Sanders Globulin (S) [Mass/Vol] 3.9 g/dL Normal [facility] Comment on above: Performed By: #### H STROPN, CMP #### [facility] [address] [place] [address] Dr. Mars Sanders Glucose [Mass/Vol] 102 mg/dL Normal 74-106 [facility] Comment on above: Performed By: #### H STROPN, CMP #### [facility] [address] [place] [address] Dr. Mars Sanders Potassium [Moles/Vol] 3.9 mmol/L Normal 3.5-5.1 [facility] Comment on above: Performed By: #### H ALESSIO, CMP #### [facility] [address] [place] [address] Dr. Mars Sanders Protein [Mass/Vol] 7.7 g/dL Normal 6.4-8.2 [facility] Comment on above: Performed By: #### H ALESSIO, CMP #### [facility] [address] [place] [address] Dr. Mars Sanders Sodium [Moles/Vol] 140 mmol/L Normal 136-145 [facility] Comment on above: Performed By: #### H ALESSIO, CMP #### [facility] [address] [place] [address] Dr. Mars Sanders Urea nitrogen [Mass/Vol] 14.0 mg/dL Normal 7.0-18.0 [facility] Comment on above: Performed By: #### Franchesca MCCALLUM, CMP #### [facility] [address] [place] [address] Dr. Mars Sanders Urea nitrogen/Creatinine [Mass ratio] 14.3 mg/mg Normal [facility] Comment on above: Performed By: #### Franchesca MCCALLUM, CMP #### [facility] [address] [place] [address] Dr. Mars Sanders PROTIMEon 08-10-2022 INR Coag (PPP) [Relative time] 0.95 {INR} Normal [facility] Comment on above: Performed By: #### P T, PTT #### [facility] [address] [place] [address] Dr. Mars Sadners INR GUIDELINES SEE BELOW Normal [facility] Comment on above: Result Comment: EDU RED INR: 2.0 - 3.0 CONDITIONS NOT LISTED BELOW 2.5 - 3.5 FOR PROSTHETIC HEART VALVE REPLACEMENT 2.5 - 3.5 RECURRENT THROMBOSIS Performed By: #### P T, PTT #### [facility] [address] [place] [address] Dr. Mars Sanders PT Coag (PPP) [Time] 10.3 s Normal 9.0-11.6 [facility] Comment on above: Performed By: #### P T, PTT #### [facility] [address] [address] [address] Mars Sanders PTTon 08-10-2022 aPTT Coag (Bld) [Time] 29.9 s Normal 22.3-36.2 Th e [facility] Comment on above: Performed By: #### P T, PTT #### [facility] [address] [address] [address] Mars Sanders TROPONIN, HIGH SENSITIVITYon 08-10-2022 HSTROP 12.3 pg/mL Normal 4.0-76.1 [facility] Comment on above: Result Comment: CUT- OFF POINTS HAVE BEEN ESTABLISHED BASED ON THE FOURTH UNIVERSAL DEFINITIONS OF MYOCARDIAL INFARCTION. THE UPPER REFERENCE LIMIT (URL) OF TROPONIN, DEFINED THE 99TH PERCENTILE OF cTnI DISTRIBUTION IN A REFERENCE POPULATION, HAS BEEN CONFIRMED THE DECISION THRESHOLD FOR NE DIAGNOSIS. Performed By: #### H STROPN, CMP #### [facility] [address] [address] [address] Mars Sanders XR CHEST 1 Von [...] JONN HARGROVE Date: 2022-08-10 18:59 Normal [facility] MR head/brain wo conon 07-08 MR head/brain wo con [facility] [address] [id number] MRI Report Signed Patient: Rosa Eastman MR#: [id number] : 1965 Acct:[id number] Age/Sex: 57 / M ADM Date: 07/08/22 Loc: [facility] Room: Type: [facility] Attending Dr: Candida Alexander PA-C Copies to: [...] Rob Funez M.D.07/08/2022 1:37 PM Dictation Location: [address] [address] Transcribed By: [facility] 07/08/22 1333 Dictated By: Rob Funez II, MD 07/08/22 1336 Signed By: 07/08/22 1337 [facility] Folate [Mass/volume] in Seru m or PlasmaOrdered By: Candida Alexander on 06-21-2022 Folate [Mass/Vol] 7.4 ng/mL >5.9 [facility] Comment on above: Folate reference ran ge: >5.9 ng/ml The WHO technical consultation on folate and vitamin b12 deficiencies has determined that folate concentrations less than 4 ng/ml are considered deficient. Free T4 (Free Thyroxine)on 0 06-21-2022 Free T4 [Mass/Vol] 0.77 ng/dL Normal 0.61-1.12 [facility] Comment on above: Performed By: #### V [id number], T4F, TSH3 #### [facility] [address] [place] [address] [place] #### METH #### [facility] , Laboratory - Chemistry and C hemistry - challengeOrdered By: Candida Alexander on 06-21-2022 Cobalamin (Vitamin B12) [Mass/Vol] 369 pg/mL 180-914 [facility] Methylmalonic Acidon 022 Methylmalonic Acid 241 Normal 0-378 [facility] Comment on above: Result Comment: This test was developed and its performance characteristics determined by [employer]. It has not been cleared or approved by the Food and Drug Administration. Performed at: [address] [id number] [employer] Designer: Millicent Calderon MD, Phone: [phone] PERFORMED BY: [place] [address] PATHOLOGIST VERTICAL BORER GENEVIEVE CANNON M.D. Performed By: #### V [id number], T4F, TSH3 #### [facility] [address] [place] [address] #### METH #### [facility] , Serum or plasma methylmalona te measurement (moles/volume)Ordered By: Candida Alexander on 06-21-2022 Methylmalonate [Moles/Vol] 241 nmol/L 0-378 [facility] Comment on above: This test was develo ped and its performance characteristics determined by [employer]. It has not been cleared or approved by the Food and Drug Administration. Performed at: [facility] [address] [id number] [employer]er: Millicent Calderon MD, Phone: [phone] TSH DL <= 0.005 mIU/L QnOrde red By: Candida Alexander on 06-21-2022 TSH Qn 2.46 m[IU]/L 0.45-5.33 [facility] Thyroid Stimulating Hormoneo n 06-21-2022 TSH Qn 2.46 m[IU]/L Normal 0.45-5.33 [facility] Comment on above: Result Comment: PERF ORMED BY: [place] [address] PATHOLOGIST VERTICAL BORER GENEVIEVE CANNON M.D. Performed By: #### V [id number], T4F, TSH3 #### [facility] [address] [place] [address] [place] #### METH #### [facility] , Thyroxine (T4) free [Mass/vo lume] in Serum or PlasmaOrdered By: Candida Alexander on 06-21-2022 Free T4 [Mass/Vol] 0.77 ng/dL 0.61-1.12 [facility] Vit. B12/Folate Profileon Cobalamin (Vitamin B12) [Mass/Vol] 369 pg/mL Normal 180-914 [facility] Comment on above: Performed By: #### V [id number], T4F, TSH3 #### [facility] [address] [place] [address] [place] #### METH #### [facility] , Folate 7.4 ng/mL Normal >5.9 [facility] Comment on above: Result Comment: Rosa M te reference range: >5.9 ng/ml The WHO technical consultation on folate and vitamin b12 deficiencies has determined that folate concentrations less than 4 ng/ml are considered deficient. Performed By: #### V [id number], T4F, TSH3 #### [facility] [address] [place] [address] [place] #### METH #### [facility] , Coding Summaryon 02-13-2022 Coding Summary HTMLBase 64 EwrqfodbNFa4jDt+PGhl YWQ+YF9WECQuX61auZNc mS1WB3cLIR1LJVZYUXQT BO2PWG5fbKB0QRscO3Mw biAv UtlhwKClMD62ZTh2CRI7 aUxkTMhxfX1ruOExA2t9 PgUtLU24aL10YWutSPHz GdZ3JmSasdewfCAj V3lfTbCgvGOaKkk+PHRh YmxlIHdpZHRoPScxMDAl JsCxsDszKA8mRu9oIDTv LWNvbGxhcHNlOiBj i5wzQLMkNYtxNT6jhUcw D2HtzUW9KPVcn1e5Ny21 dHI+XUZnYDA5aNzzEVio p610BdYid6isWKR6 eCDhOHvwBXA7T21ft7Z9 XMVjZTKwJLX4zOL4vN0u gZrwfsqkB2GbcUSpWaA9 WNO1iVNihD8ptXyd vamyeJ7pIiw+L40USG6V ZGGNAH1RXpd1P8ZfMeen dHI+DA26TCGiBF02uIUb wFSkp8mjaNr8ZfTl MMAbSZR6nObkRRfwr7Rr NLVpZ66xnJRhx1S1EXLc sJevgKFvTnKmoRJ6rG3j IKvwmscxy3yrdgis Vuoup3gnva43zQ19J67t GNooNXGiYDN4NANmAGDx jHjgst7fqW3hOo0+IDxj p8gur5cvpNw6VuWn CXVdgbKdkPomQAV3l4In Sk34N8DjvTlix5ViSvn5 tg00nHBpg9K8dQR0YCwo CUQvmH6bIOgfBtS4 QPCoLdOvnJ09yIBqPBdh Oy2mhMzpcTpjLF3vDUUp ltjeHLRnaA5pFUJuoBYp eEslBT3gQIKkrdxi f496HfSkMYB5OCYfoQNb E0LevA9tEfDaTJCuDROl D6LjsCRgIWbdE228NPjx AbP8WBNeqrAeL6Tc FKUdoTseXkY1n3H4Cq5G k0EubxseZMD2DAanWLT3 HpO9UfTiCkX6E6ZtWlm3 CTAwjSpcKH2wN1Mj RGQoylqfuywtpGJ6WCSl UZJjjY49gQIyGZxvEk0n t1C0d506CKBzMWAxrX88 Im8aiAxwBNZpwWWB pS4udknch5mwarubJuKb VILrLLk1FKa4WUPgqYwp WaXkWQJ9DdC5TZM5eGRw rU0hoHhqlpjztX0k Oyc+V33kbP2tPPR5QEN9 vlakDZSchcWjZX75BW46 U3GwJowpnLGzpVO+PGRp fnQmtTsvZF3mTvTr l3wlp9HcDUxzY2JxTKKd EDyjRmz2PXXtCEK9eBM5 qD3mCZAzPLvql1P5fVW3 Q6KrbmKvjj8jr3vw YOLhCZvwZ82ylVBhg0A6 ACAsqRS6YAAzeKjfPbKs fD91Bew+TFCjrKhxv4Hq Reatw7kpl3eyoXx3 IjMwJSIgdmFsaWduPSJ0 u3QzFl61V57qVNuyVQEe YVUvQQYwPJGroHvrsv8m hU7kHy3+PGNvbCB3 yEE1tV5nEWMzCiK8FUcn N947DxPfdPYvNerjd8bp c6adqAi0LmMnTFGkjnGd oQnjJUA3o1SbFp89 P87pGVurQVUyFSDnDYAd BKHwrFdlzg3ciY1jTb9+ LT1cw7iaao47dH85sRO+ WGUvADG8eWqoFTpq XDMrgM1vESujJdB8EXWx QnIevP07uXTqZNdtBo9p pCgcpLcwAQ4qKHArbmef q844IcBel1ldHCEc dHTwFQgcFRQ2H26lz1S3 KSWzQCDjASH2oFR8qQ4s bGlnbjogbGVmdDsgdmVy mHfyBIhoEIrxR941 IHRvcDsnPlBhdGllbnQg WlReRWo9L5XlYzb3CXDa yArnYD3feONrYJsbSk5m qExpiTnlXE6vDFPu nsnlj810JdUmm0ofCOHs xWWlIMlwGTJ4F53xp5E0 PNWnSVWeTQP6pIS5xH0z bGlnbjogbGVmdDsg yvYflJhxFVwlFOxmZ758 IHRvcDsnPkJpcnRoIERh xLQ7RA37EG39pEFgp9N7 mEB6I7SiXUOwsxff gofssZB6VBClNUArlV56 Lx9zqIvfDa4aOVGiMKS8 VVUnyGMqR4AvuG4gReTj SYFlNGLiH9BsvFUc ALnmK847XOzdYjU2MCOk eoXaU3FxGMVkyMnjVgS8 c0G6Gz0MS8E5RF43YK11 uXArl6W8fKX4J7Of ULPewewpwhmabLD8AKCg CDPfaF15Jf4rjCiaJf0v NKAnXFR1YLPrrQIzD1Dl nN6gZbZpHNYoOCHr P4FeuGHrRWkhU161WNep AeB5ELGhnaErS7JyOXIz mHffNsX2o6P0Uw4GCSy1 MP76FS59hSJfn9V6 uCU2D5UdHTBbsegqtkwm gED0BWMaUCIjnD99By6n nXdqSy1gYKXpBZN0SCCj pHNdE8SpoK1hClNy CJPkWAQzQ1OckGYgNMid W665WBkbXcG4EDSctiHf E4ZhCNVolJztNqK5i1H9 Fn9RGBVmUA14BUN5 uFO0BM13JC79G6CxRzyw dGFibGU+PHRhYmxlIHdp ZHRoPScxMDAlJyBzdHls YT9sLi8fBFAeMLMu tSsroUSfCcTsq5wsFRPg IYkvRO8ynElpL1MuiYU7 ZWAnx5h5Om81X64pS8Mn dXA+CQIfvZS6kRH5 rU6dBdKaZeB6HSgbW116 OiTgdVJeDfnpf3xtm8wh uCx8PiV8FBInbpOfvAjn OES8n2UoWb00R81i IHdpZHRoPSIxNSUiIHZh vQcxdk9mkM2cQc3+PGNv bLX9eCT3nN1jOuQvZjX4 ICwqA356MmJvhNYr Bexmr2sct4qrrEt7GqWy OFTdndVnvVkxPGI1u6Ed Av66U9YjyYzst7ZsQye9 ja99uXDuj0Y1wUI0 K0MuDVZajjilbFGkwPet DN9rZBMhzdguWKCsyQ3k OQErO6d5VjAhMsH5ZBya C4FqzjP7HLCzvGSj ZXszWTA0G41iz9U4QZDs VSFhIEO8sFL8rG1nfPtp bjogbGVmdDsgdmVydGlj KEmfLDziP967BUEx nDexCGGscB9gTXFkeILc tTmxAQ4nCGPzgkuwSpVO X6YOD91BJYRXJ1YZIrGa GBgNRE53Z6LoYrn2 UZAqqYxjVX3krZQgVKfe Yj8sjRwpyLvzVS2gXQDj hblhAWXibV4qCYJaxRNq bYqzMT6kNVJggnwq p143MlMyMPP8ABFtaCNt V2VfwK2rDeFoVEPiYZQz W3JduGVrVIkaB151DVfi IcQ4PTHnfdUnV8Pp VZRomTueWvJ6x6T3Ux3j MX7uQr1wSSN5IU35TJ85 eJHxn3Y3tCM3V8NmTNWa zubhrcxyoKS9AUIf DDJkzW42kROaALioUi6s n1R6g754PGYnGJBchN02 Jy8pnFfbGRRttDTDdL0l ellxr6qucuqeIzXh FWIlBRb6DAl0EUJplBoq OmPlQYT1LwL2CCP4gMLn oU4nyCivkqsseC3dSjw+ GJIoSNOomtR7J6Ob Ibc8HWQwwMcsPV4ioVCp BGciRc2frIuzbZdqUZ5n HFOgfmjrENYarL2zEOZh eUDsaSbdKQ6tGTRi jsbxw945WeAiKNA9TYGp gNCaX7MqbU6eMaIeXOMw ITMcQ9ZntSPjREiqR261 HKxeXjU2ZPQxieUd Z4ZeLNLfsBcoPiQ5e9W5 Zy1OZWmSXJ73XF83gSWh u4E5zKL1M3KuNMUtyhcu wuynbVA9VYEsRLCh tL11eZInTAjtYa5es2T9 u030YHAbNJObrV38Iw4l pLkfJJDmqLYWlB9jixdv r3uqyjdiMqRlSTHn RPt1OQo9QNGnoZltFxKs BQT4CrS1ARR1xEZhdH7t sCwzhsbvwX9iYzu+T1A8 S9GnFtjcmFV+PC90 KVAjDA10cXSteYPhj4nq nLm6FcIdRQVqTAF6tFqd TWfqr0PsSZWwG01lmRKh w6P0ANZzgTsjmDLh VgCtrOF8hV5uJPmswtrd h9dqhwnrYwuax6ahqr66 uU04U25kLHczDLXdGAWy SMHqTVYysOzhyb7c rA5kTc5+XIKanDR5qIA6 gH5kHxUaEtQ9XFcpB017 FcCvzTEfTiqor0zic2pa hTi4MlOuRGNpqlLj nVcsUPS0f3VrBm89Y98r IHdpZHRoPSIyMCUiIHZh rDbkjb9azO7fIz7+PC9j b4uxtj60mA49sJF+ HSZgWRD2qIvfKUspFENb lY8sAZxpXhR6AMEqQjMo cZ73gRWxCZjvAp6nmGra hZslYX1rHFNbxftj j948BfTyo4pgYHRtfFIj VGleAZW9Z74bx9K5SBDj WBEzSJN4jSC4fZ9vhUbc bjogbGVmdDsgdmVy kLboHMsqSMcyU285XFFl pZawNhLytCUzZ0hhwbBO BG0qWtmmzLQ+PHRkIHN0 wBklVEuuVDOafF5e LLBhL0h0NjNqKuH7INbk I1FxdzS3FYRqiJXhWNCg sLDPjF1esktft3qtufgp TjNwYEXlECh4VYl3 BYNqqTalUjGsGTQ4UlO7 SKU6kWNyzX7ieZouzbaw hR4eXax+RklOOjwvdGQ+ VPCqIWL3rBnkHRph JPRyqB1eXUFpO7l7NgXv ZjE0UBdmC1RsolE3UMRd hPMmCDFmrTLEzR8cocxv j6zswfjlIuFeIRIc GFo4CWz5WVLwdMqyLfWi XAN3TiW7GKK6qEDxuQ6m kEfmkzzuuQ6eWhu+TVJO OjwvdGQ+PHRkIHN0 xOuiBRxwIPXmcN2wLVRn Z8i8DdMsUmY1VKqkP4Tm ljE7TVLlfYEbUPHrcATC nB4ykivrd8jafubg InDwBUCySNx9RJz4NMWg hEquWpYjADK5MlJ3IXI5 qMXwuK2muRpqqezdkM4z Oyc+PQV2UWO0GZ53 VK97A8KqUjtwaTRspZC+ PHRhYmxlIHdpZHRoPScx BTYzRvSwfYpuML3lGp8g ZGVyLWNvbGxhcHNl OiB (more content not included)... [facility] Coding Summary HTMLBase 64 FlonuhhmUVm8uSd+PGhl YWQ+SQ8HCFCuC53etEZo zM1KA9uGJF3NQQLEHEOC IY8KSS4djUY3ZCerN2Er biAv HlfhuWYmZH00EWc4NDN8 pHcbZVcspL0asBNdF1v1 CiQkIR69gT67WFnhJFWm HuI8OnSwavzhuXPj I4hwWrVujJSvXlx+PHRh YmxlIHdpZHRoPScxMDAl ByWrkQjpIV9xUt4mQLCc LWNvbGxhcHNlOiBj d1kiPFOkPYxfOV8ybQzi U2RbcPV8VZGuj9e4Lu04 dHI+NYUiRFD8eJsvURtu b906RmLvi2clYKO6 wVMlRMafYET2U37ab6R0 FVKmXUWgOJS4qWR1fA4x fOgyhblfU8GtpLXwLsA5 XHD3qTTbgG9jgSyr xxqcsP1vQli+B97JEQ3X ZTAZEP6ZSap9L4TjWnfz dHI+FB27UGNhKU45gUJu dDXeq9gcgQf1DvNa NHQfMIE2iVevSPrsg8Cf ZNTdF03wuMZpj4T8QNJf qRzruNXkZnGrxNL4oQ5e YLvzxtsdi7kwrgda Shntq7lzzd14mM24X28u CXlaYJOyCPI1IFMkXHDr sPxxse0ngE9iAa3+IDxj i4ggs7hkxVq8GmCs WGLbqoLdiDfpJIJ8h8Pf Zi85N4LsfNmzz2CsAjx7 he92bLBmw5P8jXO3FSgn BQCbdY8xQJzlNpG1 HBMvOfVpxC48xECjTEvv Zs0xpXkcbLjbWQ2nCAQn qfzqFQMytG8xLHIloDZt mZbcHG5zDXXxitdp e311VtFlKVY4GLMmeMTq F7HovC5nYbFsBOPlVWKw R1DchDItSUjsK985IDlk QlI5DPTvzaAxY1Hd YKYvmSkxLvE9h7K0Ws5W z2PxogzpBDV3DLeuVRP1 TiV6DnCmTjL7J7IaYsu3 ZGXrtBcbEP4oZ8Pl QCUmgkxmovhipTO0JXJv USUilH50qSThKFqpNj7a n9Q5s706WDKdAEShjN29 Go5cqEnrENYkqEQV uV5adskam2towjhmOkCa YYMmUEf0UFt4NAXbkAry WwAhAUK4SdK3YXL5kXLr pI4qdOplcrmodX3o Oyc+E09beF4wTTM1NOX8 ouwbGKKmfxKxXQ99WY15 U9KvYjrhmBSzpLV+PGRp bjGnzKcxXI0lKxKd f5lre7NhNKxyK7UlLQTq IQhkCur3TNWvORS1pUL9 qF9qTVRuMOyfl0L9kKJ5 B3VghwTxlr2lp2uk BHErXYkrK13joIAhl1U6 MDHuxJU3IPWmsEwjGzJn iM06Dmg+KQWfkHkul5Nd Jinra1zqq5vbjRw5 IjMwJSIgdmFsaWduPSJ0 h4FdIv34Z94fHXefKUXp AWUgDPLdKOSuwHvzos7x jC7bMy8+PGNvbCB3 fXY4oO1yFNDxJkS2QViq B480UxZvjAUsIppqx3hz x8hgcZg3YdMpZOXeeaCh dCjiSLJ7f3OfNh87 I35yYBhyEHPePVQpATNa FZKfzSyzza2ytJ7oLm8+ OG1eh4xwag00qT77pDI+ NIRnWSK1lJbqZQcr UIHqbJ5kGEwuIrO6OUNg VhRtfM67iZDzLJunHv2x rFbscFvkML6tYSGaxkqn i307RjYwg3ouFXFn bIJmIXfePHE5A04xg0J3 CJNvZCIzWCG6yKY0dJ1c bGlnbjogbGVmdDsgdmVy yTqcZPtlPVebR202 IHRvcDsnPlBhdGllbnQg GnNaZGz0C9ChQvq5IPWx qOcgET3pdSXgGWgvFp5v jWvmeOsdPG3bYDFw ojoed882WkThv2jmYASs tREwYFzaGZV3G28qe7T3 WROkZHKlDLC3nXO7dG7k bGlnbjogbGVmdDsg jhAfuCoxHWozTLofA857 IHRvcDsnPkJpcnRoIERh qJT0BF22OJ54hCYer7U4 pQG1J3BuMUFdebql spnqkRJ4VPBqVAYkpU15 Tj4syUhbUx6wMFWrUQX3 MMHpcNBsM5IcyG3wDwBw BTFgMKCfA0QfqQRw KWdpH259JJrpKbF4ERUt mhBwO4JiVIHhlSqtEbC4 n8K6Gl8PF2A6TG86JI90 cBUmm7W6jKI3K7Xx PQLbjyuegnfrnQL4KSFc APTgwL27Ao5igNpxEj5g OYGoOOE4KJSzvYNvZ6Pm cU1jXqNtROCfIAVp Z4MaxRKeMVxoK201XMkn ClR3HFOabuRpH8RlWWBv yUyiYjD7c9D4Sh9VATo8 IM82PX13cHUkh4O7 oRB5C4SoONTtpgcdbekc tCD3YLJbMFSyzE99Fo2q hTduPd9tUKXqEAW5LKYb tDXyW7TpfW3jSoLn GZRfQVFjR5XtuAYnHFlc E341IEipOcG3EBAaqeOa C0LlQJBljBvuSkQ9r2H0 Wx3KUQWeSB03DZT8 rBO5UD70DH31T5LoInqt dGFibGU+PHRhYmxlIHdp ZHRoPScxMDAlJyBzdHls IT1kKa1yEYVgZMVk kFjxtUYsKvUjn8yzGQXn RCmlYV7tuDktC7AwnIO7 JBOxw7v4Ln38O95sK3Nb dXA+MTTmfAL3bMS2 kK7gWjBxFyL6OQnbQ703 XtLrnQGqKfjle6wis8lo pYz3TeD6GRUeuyYncQyx GEM0v4VsSj85X30x IHdpZHRoPSIxNSUiIHZh bZitvk3vdC6bRr9+PGNv hHN7zFU5iO7hLoJcXxF4 EIonA576UfCnkQCk Wpihj7que6dcjZh1HpSm ZFCrhzVnlVnpNAG9v8Qc Wg04P0PeiChoj4GjVjm8 mg00pEYpa7J7kJT1 G5VsHQMfaeclcJHwuFaf YK9cWCCdqjwhHIVpnN2h SHHyG3g4ZoAzRwJ8DJnb T8ZojcZ5EGVumNXr JUelEHQ9H75wg0X5XBKx JDJqDMH9hLT3tE7kzSpn bjogbGVmdDsgdmVydGlj MHosAJfeY621VDJs dHveCCHhuU2nHAKftLZe nIuhLW7tSCErzhbuBwST Y0APF32NFEBWX6GHVtKm PGeADK27T7BxEwb3 SJHibAfhTD3hdMOhPBfi Wz3vpCotdTgoHA3lAZUd beccPHEkoF3oIUDhcJMi cKpqDF5eYKJsijdj l810EwDpZCJ6MGCzoNSz M0TbiI5rBlUzJAEcBCWg Y9PwdRIiJCdoQ122WWqv AhH7PWRrbbXbT6Mg LGXniTpdObF2a6H5Ot6q AJ8kHu1iATQ3PD33OS50 tIJen4A1zGG4Q3CnZPCd hctkrjzwzPI1WFSs CXGtiO52vDMcDCqmGn8d q9F6m494ZFTwWSLzbR82 Jv0cbXogXDIecTVBiS1h dptbz7pxipwzLjMc CWDeWEe6QNa1CYTxwGai ZfBqWRL9QxA6PVW7bAQv dA2oqFowsmnzoC8yZyg+ EAZoNOUsgrP7G9Lv Meu6BDAziKsrIQ9rfMJt GRujDg0ioDkjeBrrDO1v TXRxinxlFJXduH6iNZJq sIBpmScdEZ8fITTq ifzlk982QtGvLRD2ENXg uSMcK6RzvS5vWpEaTLUa BAHmU3VwyTRzFUvtU224 KZicHkS1JIOpmkHw H7KfWEFepVakHiK8w2A6 Ix6MVMbHYW81JN54gETs b7R5cYS4V6DiXFMacknd wotxvAM2XAUaXEOv pE15mMFqLFxiTz1dd1F8 m227FTKtRKNaoM50Xb2k hXydOQGlbVJEgW0hfqmi o6maykqhHiOaMXDb ISp6XNa8DRWtrQpeQaWw CCM2FjL4PNB7cZKdhA1c vEjdozrpbF9fCzh+RW1l pfcqbdG2EM20FS17 R4SoQketqOBwfST+PHRh YmxlIHdpZHRoPScxMDAl CtKcrNraOI9gHh8tZQJn LWNvbGxhcHNlOiBj h0naQZViDOkqFZ8ypMgk O8CfpVB6MAPpj4n4Lr85 K37bT8NrdQN+PGNvbCB3 kVM4aD0rOrZtLbF9 WLrmR954WnHwaBAaThkp u9kjp1lrxOs5IhBwHGEn pxLcfIhdZGL7e6GiUe98 B94aVCsaSWTxLAUb JYAdXAIfjCbdaw8ueP8n Ii8+RSIgaEV7mYY1iR5f TfVhLtF7TUahQ834XbVq dLJdPjucZ94jG2Di dXA+GTCuGsl1AYMtmDcn LB8fcRKvTTyzHu3tYEG7 UeSpNfCfAHkuK6KhDRVp lzmofoaftCJ5ZZMi IKZxlT23Hf3frPgfCm5g OXHrEUD0XIIwsCCgV1Vc lQ5rHtMaPLElIEKyF6Qd eTTqJEeqJ925MYmw YqT2UXStgjUvL4OuSPKx mWzhLlN4j0X4Ba3RrZwi lBBeCG4wHmKoYXt0L4El Pdf4SZMyxNwbUM1v tNXtGKzeVw1yhSuioVhx NM0sRRCjfxrpi939IiQj t2drKKRtgBWfULogRTJ5 X52zp2M8HJRsLTTk QWY9yLR4aX8uoDvyvwaq bGVmdDsgdmVydGljYWwt EOfiU173ORFrxKszCdWR Qii8W0WcSzf4CQPj pCkaVM2csKQlALxzMi3k nLipwKbpWS8hDYQowhlt r548LfLyf2kdEMGklWUj AUlyIAI1A24va2E1 GVFvOCCvPTW4rAS4kS8v bGlnbjogbGVmdDsgdmVy xFlbWFwjSIskR798SGLr zRxfJt9CDax1E9Ns Lgp8PZXcvQvrPT8esSFs DGnyIz9guSwooRqxZD0x ZPPggdhsm667SmTuo7uh IDEwcHQgVGltZXM7 X01up0S2HTLkCFGtTVI9 wYS7lA8lrTdkdjrmkLEa dDsgdmVydGljYWwtYWxp L746YRFtxDqjRpMr eWVyOjwvdGQ+EM39tm87 B7MkGyqjTpr7XLGpXPJ8 kFC5qQ8sILYhOZvcn3K6 cPR5E0PfrwWzqj7d b2x (more content not included)... Normal [facility] ED Clinical Summaryon 2021 ED Clinical Summary [facility] - Emergency Department [address] [place] [id number] ED Clinical Summary PERSON INFORMATION Name: ROSA EASTMAN Age: 56 Years Sex: MALE : 1965 MRN: Acct#: Visit Reason: Hand pain-swelling; RT HAND SWELLING/NUMBNESS AND TINGLING Arrival: 02/05/2022 14:13:58 Discharge: 02/05/2022 15:08:00 LOS: 000 00:55 Check In: 02/05/2022 14:13:58 Checkout:02/05/2022 15:08:00 Address: [address] [place] [address] PCP: Britt Goodman DO PROVIDER INFORMATION Provider Role Assigned Unassigned Hilario Reyes ED PA 02/05/2022 14:19:18 Dmitry RNChristine ED Nurse 02/05/2022 14:21:16 VITALS INFORMATION Vital [...] Follow-Up: With: Address: When: Andrew Mckenzie DO [address] [place] [id number] Within 3 to 5 days Comments: Diagnosis [...] for reevaluation. [facility]. Return to the emergency department for worsening symptoms or concerns, acute shortness of breath, chest pain, abdominal pain, nausea or vomiting, or any questions. DIAGNOSIS: 1:Cubital tunnel syndrome on right; 2:Paresthesia of hand Patient Understands: Yes - Patient/family/careg iver verbalizes understanding of instructions given Comment: Normal [facility] ED Note-Nursingon 02-05-2022 ED Note-Nursing Pt presents to the ED with right hand numbness and tingling that started Friday. Pt also states swelling, none seen at this time. Pt states a hx of surgery to his right Arm for a pinched nerve 3 years ago. Normal [facility] ED Patient Summaryon 022 ED Patient Summary [facility] - Emergency Department [address] [place] [address] PATIENT DISCHARGE INSTRUCTIONS Patient Information Name: ROSA EASTMAN Age: 56 Years Date of : 1965 Reason For Visit: Hand pain-swelling; RT HAND SWELLING/NUMBNESS AND TINGLING Arrival Time: 02/05/2022 14:13:58 Primary Care Physician: Britt Goodman DO Attending Physician: Lennei Wilcox MD Comment: Visit Diagnosis: Diagnoses This Visit Cubital tunnel syndrome on right (G56.21) Hand pain-swelling ([id number]) Paresthesia of hand (R20.2) Prescription Information: If you have been given a prescription for narcotics, seek immediate medical attention if you have any difficulty breathing or any sudden status changes such as confusion and sleepiness. If you or anyone you know is experiencing suicidal thoughts, mental health, alcohol and/or drug addiction problems; contact the Mental Health [facility] Recovery Board [facility] 02/06 Crisis Hotline -Text 2QEWP vu [phone]. If you received any narcotics, sedation, or [...] documents With: Address: When: Andrew Mckenzie DO [address] [place] [address] Within 3 to 5 days Comments: Diagnosis [...] for reevaluation. Prescription is electronically sent to [facility]. Return to the emergency department for worsening symptoms or concerns, acute shortness of breath, chest pain, abdominal pain, nausea or vomiting, or any questions. Medication Information: The exam and treatment you received today in the [facility] Emergency Department were for an urgent problem and are not intended as complete care. It is important for you to follow up with a doctor, nurse practitioner, or physician?s liaison inspection laboratory assistant for ongoing care. If your symptoms [...] so we can reach you if necessary. [facility] Emergency Department has provided you with a complete list of medications post discharge. Please inform your live in companion/provider of your visit and for further instruction on these medications. Any specific questions regarding your chronic medications and dosages should be discussed with your primary care physician(s) and/or pharmacist. New Medications [facility], [address], [place] [id number], [phone] predniSONE (predniSONE 20 mg oral tablet) 2 tab(s) Oral every day for 5 Days. Refills: 0. Additional medications on your home medication list not specifically addressed. Please contact the ordering physician if you have questions about these medications. acetaminophen-hydroc odone (hydrocodone-acetami nophen 5 mg-325 mg ([place] 5)) 1 tab(s) Oral Every 6 hours as needed as needed for pain. latanoprost ophthalmic (latanoprost 0.005% ophthalmic solution) 1 Drops Ophthalmic once a day (at bedtime). both eyes. Visit Information Allergies: Substance Reaction Symptoms Type Comments Bee Stings Drug penicillins Drug Vi (more content not included)... [facility] Provider Orderson 10-18-2021 Provider Orders [id number] #[id number] [facility] Coding Summaryon 10-15-2021 Coding Summary HTMLBase 64 YrqvnnhrNUj1rOx+PGhl YWQ+KT1VCVQrV71wtLBa gR8GW6sWHM6QPPIKGXPP PN9EWT9caPL8YDqsR0Ax biAv JezvkJEbDL60FWp2VFW2 qDywIEwwsO3bfSOcB8h6 UiTdEI21kN54JKtbDCCa XaF4RjUrmmlqhBJz I4xyLlWscIWpPkr+PHRh YmxlIHdpZHRoPScxMDAl IxNnzOtoWJ9lVs1xHXJj LWNvbGxhcHNlOiBj q9bkNZThCGncLP4dlLmp D8DbrJB2VCHfq7v5We27 dHI+ZAUsJIF4aJovHFsh i595OzPry5zwYOX6 bHCqSFtsOWL4Q95tf8Q3 OCRpLSJeXCH9kPH7fY9e oBnwnbosS1RxaGSjEeV6 ZVM0eXBgfU4ugAej raxtqL9iKhk+K24HAK7L RLFUUA4DJwe8O8LhNrpm dHI+MI03FCCuYA62uBSm kBZtt9mqjSa7KoUs RNRhYBR6uBxwKQrbi6Zv SEPmR35smMDwk1E1XPCr hEexuBRcVpCgoFY5sQ9d MMmuakqul8jdwffg Tmhvh2zwlm64pC80J10g DBrmAJGrYQE2KGZeVPJk wFsmzl8ajN0aTs9+IDxj w4xyl1jhlAs5EhNb CEEkvyAkvEwcDAC3u0Pi Sc78A9ImyGsjb6FmCxh0 on93hFZoh8C3hWY3BRio VBUzmO1zLQprXvT2 TPWyVyEozJ47bQQyQPdz Ut7twFuvvEymNR5vUUGa sebeNWDqjO8yMTEodKSy uMkfPK7rATBhxkai b502FhDcZRQ1FEWhdPHq J5BnnS5xItDnTZQvMXJd J0CpjQKdZJfcL643APgq PaP4WLLlxeKhH0Ph XJNteCezTxW6v7K2Pm4R m6WkpkxjZWU9MJwyNRPs VqU9FbObQzN7E0AbJvx0 OITslZddBQ6aE1Jz WSTqbrkvnlihcIE6GDOy KSCdfU47hFWoCGqiJh3g f0R5w205VHLdHGBhjS56 Aq2tqHaxUOWkuVXH kE9qcqphf1gfyvgfUmZu IBIgCGx9YOt4FQHioMwk KiCxRTE4TmP1DFI8sAYs oM3wiDqdlyvrmT0t Oyc+R83tqK6uHXH6GIQ6 cqojITFjceWdGO44XQ62 A8IpQphxlJZpxPR+PGRp ziWbdSidDS4fXrAc h8phs1RrIBjwK3GlFDSi USryWoj2SXHnAPM0qDA3 fA0rHMQqNEbje6W3yKI3 M5KqptKlfy8xh6zj ZTCuFBmeA30aaQVau8H4 VJSodTO5VBGouDnoDcCq uS95Rit+HBIxiZpmy6Xy Ylqjc9awz0sfpRi1 IjMwJSIgdmFsaWduPSJ0 m6QjRo36E32bMGypTNKu OQFtTXLtLTDdlOlsid0w eX8vWg8+PGNvbCB3 hBB9dT4vPNDrSoA8HAss F807FwMinUYyYngsz1em u3wcmMu7GbNyHQDlkyCx rFrhXAM2j3HpKw02 E35nZHlwRALpGLOaHISi OPGpdRfpjk1yaR1dLc9+ VJ0og1nezr37tE72qMU+ ATPxHKQ5cLbdHOsv LHCnrM6fOYmrBoK5IKVl UuLgtC90cBJqRGelLf4f qJomfMbrLI8gMEDkebhd x242RvDuj1qoJTZk oRPuVHebDWG2S54pd8P2 TVHcNHKjJAV4tXH0mZ2l bGlnbjogbGVmdDsgdmVy oIdzQVlwRFhjU514 IHRvcDsnPlBhdGllbnQg GkYgNEf3F8RvNai6NZOg fFjxJF6szNRlNBnvXl0j iZdewFaaAN2fYCFl bnrwg591WoYzu9wgGVMy uVDoYWaxSFY7D81nd4U9 SKWeYZHiVDR3bTN9eL1f bGlnbjogbGVmdDsg jqCgfScpDPojXTdaJ134 IHRvcDsnPkJpcnRoIERh oUP7OZ28LU45aERpn4P9 pLS2J7LsUWKlprxn judrtSI2QVCsACAyzC43 Vf5qnAkwTc3eJHHoOMY1 EHEycTRsA3JnqS9cXcIx VFKlQYHlQ6XobZDt MOaxS452QSwwKsB4FEGm ddJiH3ZwRWMueGtyZrW8 u8N4Qq5VM5Q2LL16IB44 cICus4M8uVM2C0Ri XSSmwokkcbdexVD5KVDd VUZraR84Qu4gzNgpSf8o YBLlSNE5VTYzlRWtD0Vn uU3zHnLlHCYyVJBj S9LdqQBlRUnsO421GDjy GoP7LJUbhjNlB8IpKMYt hPqiNrS3f0S8Fk5YGMq4 YT22GF91wCAwp3D2 sZJ3K0YzUDXdrejtiaec dQQ8OJXxMMVdaP56Wy1p xHiuSk3aEIJmCEZ2MUTz aHTaM6CylT5uZuNv AYOsFWQxT0QxoNUjYKvd M987VLbsNcO4JFVierTn W2EjQMWzjWwxKnY3z7L5 Dw4ISMYqZE47PAE3 lXK1DE49KW47V2ArWhem dGFibGU+PHRhYmxlIHdp ZHRoPScxMDAlJyBzdHls SZ7bZt6aVRFeRCJg vHfgwRAaBbZpb2vqJWBz PYusQT5psFbsA3YbjMQ2 QHDxz1h2Kz34S20hU2Yy dXA+AMWyoVX5fZF3 tM9cFtZgLdA7BNwpM993 HxIwpBPoGcdom2pen2ys yPz3OoN6NTWztuWbaFfy XMZ7a6EyHq78M31g IHdpZHRoPSIxNSUiIHZh aKljem5jrS0bJm3+PGNv yOG6xAO5yL7bOtAbQbJ8 CRnqH791WsQxgCMl Fltwq0wdq8vgoNx4KhDf SRYndmRdkBjtJVF9j8Ks Is56I3NdsSmhu7LdHkj5 dw03wOFac8M2rVT1 I3UbHJPugcduoIFbcZsk QH0dSSMgzaqxHIWsqJ9y PJCnA1j4ZsRsLfE5DHxc A8RfvbN1PLDtxKCx UMxrAPV9F99cm9B3GUIb FBDxOQL1nJD0tU5rfApy bjogbGVmdDsgdmVydGlj OGaqLOlzI618VMAu fHsqMXOoaO1yNAYqnABg mRapAH9kUBUklsmlChGL K8VQM10OVUURX3QZZaLi UWzZTW85O2ByYxj5 ZUKtsJneZB1rvXSaMKmr Py6pmDfnwPxbWS1vETKc rjvbYWShpM8pGSLwtCAt sZacIU1wPMUuzpht w200IbXzRND7XMLawXXa X7NozD9xWbBxYPFcODDt O7IceCQvXPaxI886HRoj CxW7JFZesfPjJ4Tf LJFszNkrQgQ3p7M4Tg1h SZ4bCl2uPKG8BR39QA72 rMRzk9L3dAI0Q9JbKRAw kahtmbcyjEY7WMWg WTVwtG87dWSyTIvyZs3l y7E3p659NIEcRUTjrR29 Og5gsRupOXYkeDKPcZ1h mkmng5iuvpvrBfWo ZKItFPd3THb0MDLsyJpe QmZzYLF1UjK2JTZ8nKDz zS4ztAivtayceJ3jEpe+ FCBkVQQtxwM5J0Xl Njw5HXMzqPdpBE6onWZl HHoxEs7foZsjyJfnVO1s OBGcedsqSDDezI1lDDGt dXUndHhwEC4zJWMc nzsen220IuOwKFE2XXKe eWDjG3BovO0yFyWqBVOi OUHbI6NkgYFrOHziS906 EEspAuI1BPGwmtQj O7EqAXVnuIbbByB8t1J5 Bb2FCMyNHJ55TF43fTUa j4K1qUI0H0XjQEEpneti wjbetQS3KTKyHZLf wH52iEGaODidDp4ta4E0 y899FBNgJIHlnJ61Ul8t pQokITQgiZGNaD4vstrc u1sxflzxMhFxFNDm NUk2IEc8ZFTirPetHrXc BTA0GlF4NDU0hJWosQ6u sLybjbgoyH7gDft+T1A8 K9FiYosoxXR+PC90 QZSjIC42iLCvwKJac2wl mXv8QbPpXQToFLH9eXyk QLown5MbXSYuI16gdJBj w8I4UICcqQzojHBu XeEoeCE4kH4eGRqtzqje p0yfvniwAjajr8nvma46 hV05Z70uGTzqSAQfQECj RFAqSDEdbZqohr3h nX0nAm2+VYBkvKW7iYN1 wE0gLlOlCsH8TRbkI995 KcQsxFQaJbuac5kfn2oy yZm3ZhZeUTLwzrFq rEwvCUZ4a9UmEe88G22v IHdpZHRoPSIyMCUiIHZh rPbthj1seK9kOc8+PC9j j9rdyy30vT44wTR+ BMTpPFP5cVgrMZwuNZCm qD3zGSsbOkA5SXIrZcBv aX29pIEpXPeiQx9wwXjv wCxgOA7iHFAbrypd c056SvVvk1taRPAnoTEc PDsfWJK6Q30nq9K2MJRy JUTrVFY8fJK8uA0lbEro bjogbGVmdDsgdmVy yNvvNPmxTHsiB120QCOa hDutOpMxcZYwR3ampeQQ WK1lThnbpIB+PHRkIHN0 bHurHWcvLWEqqB9p GVAnE9b1UgWcNtG1VYpm R2QnrbH8LYQygKAdRARh bLGNfK8bxpevo7zvycwb KsQxQIOpPOo3LQg3 XACgsFtdXiDrJQO3TvB9 YWX1cZQxzK3ueGvznkur gM6cMbu+RklOOjwvdGQ+ PDZdPVT5zXwyLVux XOBggD6aOLOzG5u2UiZk UrW7APxjK9JamdT2MTTe oHJiBIXmvGLVkH2jlgbr o7zkvbwvMmAiQZKj TOj2CPo7COLpxLzfCqYs AQM1IkF4MYX8rOKykD7b uCjltxknsN0wLzn+TVJO OjwvdGQ+PHRkIHN0 gUraVVydXIBirV3sACTe Z1i3AzKvWeU3DHbkY6Hh zyS1STZfnOIpFXTdxFNA oY4muholp8ycrrif SfToKXXoBFj9MQk4HDVp rPqwMeAaGTE9XgB7DNU9 pKPlgU0ufYdgtwsroO8g Oyc+NPW0GNK6SD14 OI83M3VcUgembQNfiUM+ PHRhYmxlIHdpZHRoPScx QVIpYwOyrLriCQ0oJy0a ZGVyLWNvbGxhcHNl OiB (more content not included)... [facility] Rad - MRI Reporton 12-03-202 1 Rad - MRI Report [id number] [id number] Normal [facility] MRA Neck w/o Contraston MRA [...] Torre MD 10/12/21 7:46 am Technologist: JERRI Self [facility] Coding Summaryon 08-30-2021 Coding Summary HTMLBase 64 LokekxfbQOl6eLa+PGhl YWQ+GU7FYXHlL46fpPWp fW2QM8yXKV2TBLBGWUQU BK7HLG2srNB0OSnzU4Ll biAv WddclVKsOA40DYl7WZP8 fIdlHPjatY0vlDCbM7p9 RuQuNW42gD96CYzbAGEb KbU7XpLllprpqZRk O4sdSzRluMQfNhd+PHRh YmxlIHdpZHRoPScxMDAl FzGzwYgmQD7lBx3oYUJl LWNvbGxhcHNlOiBj c2glAWAmDCmsEG8yaAjq S1NehFV5YGHfu8x7Ys44 dHI+CMTuKDN1uMfrPIal g305SxRgm0bsRJW1 fLZrRIsnEOT3V66sj9L4 MXDaJWBkANG4kKU3cR4d xWheqbtyO6FhhUThVdA7 MNM1yQJrkJ7rdPsr ianpkK0iLlg+D41JVX6F DSRGSD7VLyl4I8NbZihb dHI+KV54UFDbUJ29hXEy xCBnk8wefWs9GbDo IBDfAWP6dWwhSTrbh9Cb GVDpZ29rmERps3G6CTJo zFsobGQxMrLjbHA2uK2d UCmkrguih0qppxlh Ejiha7nxfy30lL25X15g HRqkWPNqQNV7WXIwIVPz dIgdlq7kyQ9yEp6+IDxj g8lsw6pqqVm0JjNw PRRjujKcyLpxRLR1y7Wv Jb70A6FquHbay6XuSpr7 xa70lQAqk6J1hAR7ZJrn ALUcyR3tAIdfIlH2 FVOkJzQraM84dKEnSZpy Tl4arXspbZedCR1iEBDj cxmoDYZeiN4tNVYivCEa oFluEU6qJRQeqilr l631TlHkDIS0GYIgxJBh L9ZsrN6uPzJoPTNjRPAl K4XjeGKzGBvoB833NTep TsJ0DUGmtpVdQ9Mz PSGvpKlqWrJ6f6M4Nz1P u9UkyfxhRDF6GFpaCGOe PxBwXbUkJtH8D9TvWok0 QIYqoYgbCV5yZ2Vv HQZnwnkskwcatJG4ZXLw JFGlcJ94qLYxOPkeXq4z i7T8b295LNCjNYAryL19 Pv3piSomIXGvvJVO fF9ynjiux1qgeoxxHoDk DEUaOIk2ZFw9MTNzfMlo WpPgWWH2AbA9ZFX1kUWn vA9zwBapigevvI8g Oyc+B07frS2hNEZ6VLV7 lgoyZUXmfyArOA21NN93 L8PiWkpavLSepJY+PGRp hkRadVncRB0cGsEw f8qht7PrJItsN3GkYJFi IEogFuk1EEQtFMY7oXQ8 nS0xZPWmONxhs1O0mBJ4 N4NrkpXgil4es9ul OJRyGHjkS99ibYWhw1U5 OOUthIO6VCAofNalWkSd cV55Tvs+KTHwmMfue7Kj Ywkwm8sqk4umvVf3 IjMwJSIgdmFsaWduPSJ0 g2QgRe47X11qSKhbCORe AHYrBOClLLLonMovhj6f wA7aXy6+PGNvbCB3 gZU8wM5nFAHrUjG5KBgs H049OtQdnDZmCynso6op g9kiwQa5TmSjABTqmxPs pZtmCRQ4b9KwTz43 M81fGBxsPYNgQPOsDVFr SCOzpKokap4kgI5pEv2+ RC6aq4mkwj06nD16yJW+ COFlSBL3rWhaJDob LOVhgF4zQWuxRbA3CABw OiVlqI69nVGyDEtkPl4y zDcavFloWB5hNVYrllwd x867ViNps4lwQGHs tHKgYIhpJWX8M86ui5L2 JQPjJJZuTOR2nWL4nI3c bGlnbjogbGVmdDsgdmVy vPrnWKcsBCglF039 IHRvcDsnPlBhdGllbnQg IbTgUXt1R9XcZvs5SMYs xAcaEQ7zcKRgOEaqDp5f sLnexPllUW5yETQb mruqi409QaGmd6ivSLTv aUBiWIeeWVW9B46us8R0 LQUfGYXsOUU1uGC1jD5k bGlnbjogbGVmdDsg myYayPonQQycWFsdA318 IHRvcDsnPkJpcnRoIERh nCO4WY66MZ97iVOpe5P9 kPX2L2DrAFQywhsr diolhRB6GCBhNHPtzX65 Cd8yzPfnDj5sWBGdQKH1 HXNnuXIxI5ZjxU3gLuHr AQQqLIPcD9BvnMVa DKgbT424DUnyLcX2WESc uqZyW3HlWBTqdLwlLbG7 v2V8Jb1QU5M5SA87EM14 cNWfq1G7tUH0C5Ob MCHcjrxyingxqWV0AWOu NOBklS12Vf5pmYndBy6f YEWxGVY1ENGteYSqR6Vl hM4pRxQaRTKaLMXq T1HqoDOsANrhL167STrh PfP6SFTzhwMcO3DeEURy ySuwXdU5p9W6Rt8LXHo9 NC13WU51eXCmg1T7 oSX9C9BfGQQfrrxjgmxd fBL2ZCEdIIPzoV77Bm5g iHpgYs7qIXLwXRY2VIIg vVAtP8GwvQ8yUuMm DSByZZEjG1VujDYqHYac L297OXqaItW6RXLhbsNo B1WmASFfpJrpFzD8u5H9 Jb4PPSJlQX15EHZ2 xOJ4FO71CJ79Z4CwMgjo dGFibGU+PHRhYmxlIHdp ZHRoPScxMDAlJyBzdHls RN1nMg1sWQWvQVLy qVsyrDOvEoOvg8qjZQUk WEbaGR6hpBftM6VwzOS4 DTPft0w7Gs20V94jE2Qu dXA+PEXhwSJ2rKK1 vC3sQjJpGzM5CCcpZ252 UgNmsUHvYadbo7vwm4bk lJd8CzO7ZJUmqtNjsJyy RQL7h1BkRj68O77g IHdpZHRoPSIxNSUiIHZh dRzdok7qmI0wAd2+PGNv yNV5mPV4lD0uAdWcDwA2 ZDllY864DxOzwBJl Ycvdd2ztc7xkkYk0RoMf DLCqmvWpzTpeACB8g5Tw Nr35X9LtyWmfy1NePis3 uo88cQVdu5D9iEG3 H2SvYCGnkjpasQVwfVyk LW7bMHUtadnpPSOfnR8b OXGsZ7r4FjFfQyU4PVzy L8MqgqH6KGNljZXt NMluHZZ0P82rq6A1JGFi NNLlHII8zJG3lJ6xbNwm bjogbGVmdDsgdmVydGlj XTrvFJzbJ406FQDi bOziWKRheN7lCUWnzZIx oVdbEP7oMGJfxhzfQhAE X8NGR36VTIVWI0VSKeGr KCfFDA21L1GbOkx1 GXZlqOeoIX6jvMGjSEzv Gt7iuBwsoZbwLH9gPQXd guhbUZCklZ3wRLIbkKEn kSywEF2bBVWdqwqc j709EjKxDUL6QOJpgGYv T4YioP2wUzKkXPKfZGHo Y2QamAFiEPriT425ZCcd ToB7MUAecwCzD1Pu HDIxpYsjYqR9b1P4Ig3h CA6eRv0rAAR2GT98CP88 eGCot9G5gQL9B8ZzABUw neozvsxupMZ4WPOq PERppK61dCQzGLfmWr7r b0S9s379NJZlLYMynN58 Nu6swBmxGVUnrTTFzO8c fucch2rkrsfbAzEq SJUmZVh4AOy4RAHeqKsy YyLoYDT0HlQ0VYX0qVUq yE6yyOhnxzujaA2bYop+ EJIeMORoecI3T5Mj Ogp1GOPlyVpyNG2kzRIe PBtuVp5zrCtqsBicIX2h GOTqnpazXSTksR0cINXw dUCbcUcxUH4oXTOm wphxm649JrZpHUL7XTGv gOJfZ2WkpT8gCePwSMOz TPSzX0HgeXEyBClsJ682 EVnyMiV6BFFfgdDy U5ZqDCMfbCqzEyP6k6Y8 Mi9STBqVJM59FH28fSYj z2W5wKA4A8IxJXUocpvn wqqsaBU9ALAlGUIm lL07qHNcFUiqAr9ud3O2 o736JBMfZAFhpI91Jg2u xUnoSVYigXYVoU7otflx j1vojdpdAhQcKYLv VJm2NPw0JRPrcZlyIjFh CYT0VlB6HED0bBJrfU4c bQwqgmjznY1lImc+T1A8 L8QmQtvcgPW+PC90 SKBaUY75oDZrfCHml1su gUr5HcGwGWSvZCX9mEse CHntv1XlBZOfI66xzOYn e6E8MASboRqgrRPa QcSmcPT3dE7fYBdfjwtd a9lqudqrPppvy6mzwq34 uG61D86sNEcmADWlJFRj LNVoSBSoiOfahg5m mL8oVn1+GTTvjVG6yPQ1 jJ2xEoQcVaQ0WBdbT934 WaIosFQxOxdyc3qlv0dt eVk9UbIgGIJqmdEu iKahLMG8x6LcCr99F60r IHdpZHRoPSIyMCUiIHZh oIxtlp6duG0gHg9+PC9j d6qgdz11fQ11cOW+ IACpSIE8jQjiVClvVEVi uO7jJFneAbF9ZTVdTcPu sO34iOYdKHalQz4lfAik pSwbTO1jEMBjgddv y554ZdDeb0yvWHMbmKIk MNeiBQQ6X67ze0I1IIUy RPOdGJB8zBR6kV5bnPko bjogbGVmdDsgdmVy hTufWRhlXOuhA463KAAt cAgiRgQnjDFpX9xwcvRT KQ6cRmjheWZ+PHRkIHN0 gBvlGTzpYLXmfZ9n WNHcY9u2EeAnLwP9DNqw M9VfgcT9ZIBlsNOwPPXo qTQZhD9udskin9bnxtna KcYmZLQkGDz9MGx8 VUUjzWkcKoPrHLC7WuF8 CQH7rBPetS7mbKtfycaj aS0kJmp+RklOOjwvdGQ+ GPBpEDA0oTwuEUlb RCNukV7lMNXrU2p5RuJr YeQ9XKjzL8ZmzxN3CYOq tHJhHMVvqSFLrB7yuwtf e6wazlmfJxBoMRDp XWd9HHd9LWJwlEgeRwWa CPJ4EzM8CNE5nRJoqC0c rZducoqprJ2bKgy+TVJO OjwvdGQ+PHRkIHN0 xRqdXJmmHWJiwC6yTARv U0c0AmVjJbH9QOhjF6Wu tiX3CBIvuMYzFNGfaNIE rT2qlkhnm7bbosua KbVoEXQlHLp8JGw0BISw fAbbHsLzLRD3NqZ9WHO8 cBKlnQ0wrJwfscadsI3u Oyc+WRK6HMN6RQ46 XO88M6FjEvxheNXngDO+ PHRhYmxlIHdpZHRoPScx RFKxPrSgiOswAQ9wUu4d ZGVyLWNvbGxhcHNl OiB (more content not included)... [facility] Coding Summaryon 08-29-2021 Coding Summary HTMLBase 64 PjavlkxyRKc3tTh+PGhl YWQ+DI5PIVZcK20nvOXo nP8UG3sMWV3ZCOTXFCDG SS8GCX3beKX5HCsmZ5Nt biAv ChxlyZPzRR13SGo7MZG6 wLjlAJvztU4uiJIcL6w3 EiTrEZ45nZ98RRmgCYQn VtL0MiWrvmqcmSQg H4adHeGopOLcArn+PHRh YmxlIHdpZHRoPScxMDAl DhEyvIbmWY5bNq4jFNMn LWNvbGxhcHNlOiBj m9dfRBBoLNzjTU7rtPiw A0JmaKB2IZMbx3y9Wj65 dHI+LVQjBUH8ePyoSHkp b921MdNzm1rrPJO7 tRUqGEyqOCC1B98ln6X5 ZFYoPEGrNCR2qAF0iW2w wMrbyyimV4EhqKDeSpY1 SVE2sCYytB6wvHep zcpphC2oCtl+C81ALV6Y NKDFYZ8AQoi4P9VpCpsx dHI+OP15JAItBA23mINn sIEkh6kpjVp1WbYc HDWdSZG7vNezSUgjx4Sp XQZyD86xfUHxu6S1VZPn eTjblNBgPhFqmDN4oF4q ANziyplze1nydkcw Qttdi3jssh76nZ71T13o ZUlqSAHdTMO7FQRuLBEl wWsror2muI3aOr2+IDxj d7hqd4rrgTq7FaUi NWKkvtCrwKoxBZQ9c4Rn Ww29V3XdoBlmm0SwAbd3 sz62wKVdl6T7cGX8WUsa QQHuaT7oTAefLeN6 DTIvOqEyuV61sQExSNeh Xq0ukRfgrCmuVN2oIAWy pgwiMASupM3aYEBctHFl eBegAE2fDOIhcrca g267ElZaFJI6BLQrwJAp F6HibM6pIaFmNPIkVGVg R0XgiTUkWWdnO098NKjs DuZ5YPMncrZuX7Gj GMZbeSxmBmV4l7Y4Wc7Z g5YicnkwKJH2AKafWFFn YxAwJwXtLlP4P4AgHsj2 SVUlcRduMM6yX7Or JRPetefqisuejUI5YCMn AMEpnN76vBFhYRarWo4h u8M1s360NZEdHHJprK45 Tm8uhBriMJKgsFAH sZ1wtkped4mnvxpoTfTl OAZjLRw8JEq9NAYxhPjb CpJoCFQ7ZjG0TMC5pNYz eD8vhLpvvvkcjQ6r Oyc+W20beD1fLRZ0CSO4 xjkyLKAkkjHpPE21MU95 Y4QaQaodiRJehNN+PGRp heDurDvdBZ5hTyUj b3rdl9XbVDwyS4OdQPWx EZlnVqm2SAJiMQE5mIP6 qD9yFWRmDBcku3A7rVC2 G6KotpShzk2ag3gk KMHkMUxrD33lnAAxm5R2 UNYkkHY5RIJlkRrrQvFk oM78Zud+WQBqxCnbw6Wq Xrwvp4rqt8xlwAk3 IjMwJSIgdmFsaWduPSJ0 b9YrHi00Q95zPLiyUDGg OMZfDAUpLYJnwKggbb1p mL0mTw1+PGNvbCB3 eQO0zH7dAOEmBpA1IPtc W184RdCywZTxBcnnu8ae x7vfsAq5ReKmFBAqahQd bLjmBJI9b6MrCz30 I30oZIpdFAFxJDYoXQRj YQBosNqmhr8vrQ2wIp6+ YQ5ky4liqr37eO40lPI+ ZANjVBD5vOpzGCnl OTJlyN1cZAbtCgE1ASTi CbHaiX95rGQlGXlqVa1x qLxomQzjPX9vPVFuquoe d206JbEhy3odJLMr sOXfEUibUEL4B76gk0Q0 OIDlBNDtFJL6mBU6zO6y bGlnbjogbGVmdDsgdmVy dZjbTMaaUOasS694 IHRvcDsnPlBhdGllbnQg YwLfPZe1W6AdTqg8HXTa uVxgPX1jyXYaGWtqNr2r oFbxuTnvNM1cWIOx vbutt129JdSfu5nePJJe iUBgMRpxLES7G86wk3X6 SNGuZLPdGFC8vZB0eX3a bGlnbjogbGVmdDsg opOcwSqeLXgiBAudM846 IHRvcDsnPkJpcnRoIERh qDW3EZ43JH56eQUco7F7 kKE2D1BdUJZogpml kvmfdVU3SZFjQGBgjA26 Ly1rqOrdKe0sGHSiWDI3 MTDteRTcR4TwbR0dOrKk WQAeQWDpY8JgdBRc TVpjQ609ZRmlDtU8XJLw ouQsK7PjXMBmgOeiAtR3 r4C0Dp4ZQ1W4KL80SC94 tDTmp8H5wVU9A9Ok NXQtxcngjrzpoYW3HRGt UDOqjI74Ig5iiQinIl8n BYYmIDY8PGJbvSYeW7Om dR5bMnZhBPCdZKIr Q0QihAXqDRfmV283RVfo WmJ2KOTsajXqO8HwLHNb xSxpXxR3d9K5Ki8ILOo0 JB40UN82jNKwr5J8 kIC8G1LzAMFfogajvaer zVW6CAByYMHonH84Ev5w pQwrMe1mUCCoPWX5IVMe dXAcE9GqxN5rQoHd QCFhWMYpS7WojJNtGJzw G241CYiuQlQ9DMInopWl J5HxRCBnsNxdVzN3c6X6 Nt3OYPRsQT32PDT1 cXS7RT16NF64B0OlYxtf dGFibGU+PHRhYmxlIHdp ZHRoPScxMDAlJyBzdHls DL4kQc7vTUMiFRZf uGgjsDNiCkCqh8piAEAd ASoxAP8puDtdS4OtkWB4 DKKwg8p0Ej63O55dY0Og dXA+XWEkaIL6gEA2 fB9gWqYmRtF0WTfuF294 LcCuaMFkGbvwm7hrn5ax uXf4MxT0NKDswyKomFcs YWI7c2SyAl87U13c IHdpZHRoPSIxNSUiIHZh oBisco5eiA4yEk1+PGNv yWN7eHQ2rW9jYaBeNjY6 YCmpT837OlWjbGSe Noqof2byu6jovEt1VyWd ORYynzVtcXzyLIA8j5Nn Pl57N7QvyNasx5XwLgr1 fx39qSOrj3J3uSG7 N9JtPGHbddajtJJssJnu SR2kUGZgpierZVVvgQ0e RZNbE7v5BbXvWkK6FRvz X7TbgtO4AHPogABe VDflFUP0Z22cy7L9IFCc QKSsLSF9gOX2wI4cjKsc bjogbGVmdDsgdmVydGlj QSlmHPqfZ485MTAh bFfsOQSjoR3dZCNhpEFa lXehOV1kGFVecjfqKyRH S3USH11SNCJGS7KVJlMo KPoCHO87I8HjYsx1 WATcwKsrKT0ihJShGIjc Pb3utJofnCkrDB7qXDLs eqltILChwG0fAXWseTFr dGehCN1aACRsdgbw o470OyLvHAS7GRGvqTXn M9PvvK1bZxLlABWrGONt J2EhmQAwECmfI505NBrh ArY1SVSdcoLdF4Rs PZYirJnfReU8v6E1Mt8z AU9vQg4uKPA2NR03GC12 hZNih0S7eVE7R0FrMVWg lwddaucpaXP8VXIl EFOboN78qTTuAQggRh7o a0Q8o488FGZlORUecV71 Kw5laAfcAZJstJFKqD9s keqeo3flpqjjOlBu KSDmAVx7UNq5OEPcxXng DdMtAGO9KqC5CJK8yJMn xD5nuHusenjymV6eCkw+ IBSgZQWnzoY7N2Jt Lue7KADyoYkpAN7kbUQw HVfwCl1fwZderXpoOW9u XXPbhnykVGAdaD9gOLGq xNWafVjrEP8lLUZr mhmvv176KwFiRFH1RXSu jXSpW4BmxR9sUwHyPGUe SNMtN0EwdYSrHFvvD502 PAciDcD3ZIPyueCk A1XfYBAatBuiWsC5u1O6 Tw7VEVsUAO34QF38fRTq p2F8xRG0X1QdVZMzcllk rxcgiGM9GEZxVVGc aK91aVXkSQkmVh6lf6I1 f145ZBSlZRTtpS14Jr1f oSjdYRNgpJUAwG0vwizf k8lmcnpeZyUfGWFc ELy7CQd9BJFtlHsgTnOx UQT9LzD1ELF8hDIidR3o sUuuudqvjY7zVez+T1A8 S3NnHdlfePT+PC90 EJUzKJ41gAVjlTQqb5he gAp8SsFmBZHoQKX4yOcq OCdhz6JbFPYuP71ltXTn r7L0ZSBtaDrovWDd AtBjfJO8eT5hPWgyxpny l6oduipnEbbxm6zhqv62 sR72A51pRRioUXNwKCXw DOTfQIFopZovvx8c xR8iYk6+KCUdnHF0hSX2 sQ1rQeNgNiA3AFokM030 GdJpeCClOnahv2rpe6di eXy2XqUkRNXihzOy oIwcCMU6r5FbUk39L19z IHdpZHRoPSIyMCUiIHZh iWansx7opH8eAr5+PC9j n3vuei68iO66lKC+ QLLkUTV1zJswLVtlMZIe tN1xROknDnO4TFEgQrKv fG21yYHeQQhoSc5enRhj iFchYD5iTXHgkqxd c012VqHzt1zzOPViyZDn WHxyOSU6Y40sj0D8ICBr ZARaMBL0nCK7aJ9nsHti bjogbGVmdDsgdmVy bEsfIMueSDcsE133RRFz yDveYqFbnBBtY3yljkTB ZP0rEivfgAA+PHRkIHN0 uUdbKHpoXGEkvD0c GJJcR7e5NkRzZzT2QNap P0EfkrW3EFBhaRVoFQIt fKGJvZ5dpkazn9yqohmt GvTvHYLvTVl1UIe7 JFBniYsxNzTfQDZ6WgZ8 MFF6kYRrjI9djZbvskbo fI6tIdo+RklOOjwvdGQ+ YATmBVN2wCbsAJlg WDEyzS1oZTEqF7t9XuMk JtM4ZJuiR9IhqmI6UOXi wSOoAKEleTECtI1faiit y9vnfgzoGcVxDIGm PBz9UPu4BIQguTdhMkHc QCA7FtF9TZU7lYLjlY2c wEuiwoxgbB8zPfe+TVJO OjwvdGQ+PHRkIHN0 eUjzYJgfOJNoaH8eKJCd T1d6AvYqYnH1GHycV2Fm onZ3SACqlNZdRNTsfDEU iK9lzqzkr7sayskg CxOxXVQlTNs3BWa0YGQh yFuzMbLvAQS3JgH0UHS1 yAVmbC1ylGbjwoaamM7l Oyc+AZH4CMI1EG22 LC15D2HiBoevpEYsuCD+ PHRhYmxlIHdpZHRoPScx AQSyHfWyxVfmGV3mFp7q ZGVyLWNvbGxhcHNl OiB (more content not included)... [facility] Provider [place] 08-29-2021 Provider Orders [id number] [facility] Rad - MRI Report [id number] #1.00OTGTIFF Normal [facility] MRA Head w/o Contraston 08-10 MRA Head w/o Contrast MRA HEAD WITHOUT CONTRAST; 08/27/2021 2:19 PM EDT Clinical History:LOSS OF BALANCE Comparison: None available . Sequences: Axially acquired 3-D gradient echo series for the purposes of gagk-ro-yrexmm MRA. From this data set multiple volumetric [...] Deshpande MD 08/28/21 7:28 am Technologist: JERRI Normal [facility] MRI Brain w/o Contraston MRI [...] MD 08/27/21 2:50 pm Technologist: JERRI Self [facility] MRI Spine Cervical w/o Contr indu 08-27-2021 [...] Noteon 07-12 Physical Therapy Note [id number] #1.00OTGTIFF [facility] Provider [place] 07-31-2021 Provider Orders [id number] #1.00OTGTIFF [facility] Provider [place] 06-29-2021 Provider Orders [id number] #1.00OTGTIFF [facility] Coding Summaryon 2021 Coding Summary HTMLBase 64 TnpebvpoMZu7tJm+PGhl YWQ+YH4GGVXdB80byOYm hB2HB5bLOC1AXEWVZCAD ZA5KZR3zvWE7AWotH3Dn biAv HpoehNTuYQ64FKu4OMX2 dPtrVEyvhV8fkHUwB4k3 GrPkSB68mN46UChpTAMi IlV9NdTxmvccdRHz R3qpIyZnkPFlLjd+PHRh YmxlIHdpZHRoPScxMDAl PjZieAofOI2zQv7gHUSs LWNvbGxhcHNlOiBj y8icYTUcCHykZY4fdMrd J1BduUE2GQSmm3t2Xz88 dHI+HHJfUYG4fSwxQWvn w692IvKzj2bqICL4 jFJoYStkVIK6M71md6K6 MUNrRHSqJHO0cDR4eB8f uOwtonmvK4MglBFfAhV3 CXD5rOAltW6ftYqh jccvbO9iUqi+V26VKZ1U VMNRKT6MUbg9L6BeQiai dHI+XO13DZNzOV88eNGf hWRbs6uqeAd6FzSw WCCqAJJ2cLqqAUcgv0Js SIClU33gaEUcl6A1MIEn wJytgJXdBiVbqHQ2fD0h LQrmmhkiw5saiurc Bkjmq5mqso48zK14E66r AZayXBIvWCE5YPJdSDSb aUzvsu6deM6gEh9+IDxj n8dhu3cksOc1RmMu XJPwfkSxpAfkWPF2p6Hj Pf24W5KhbCnmv9EmUgi6 aw49vEJlb6N9bUE8NHow CTAzjJ3uIOlkHeN9 ZWKiFtAbjQ25bBLhYFgd As5ukFiyrXtjVH9iGLJt fgvmIRZtpX4tSAEygWCi sYpdAH9bPZPxsbdh a550KjPtKPY0KBQwvMQt I4VtgI2eFaOkTDUxEDZe K3RxfKXnJNygU957LHyt VvG2SQQnwdVkW2Fq DMJloZgbUsT8p8J5Su4D s2FjrnnqWVJ3FPxgFWT7 OwS2FsNpQpY4G0GmEmg9 IIPmkQqeWP8zA0Gz VWHqwrqohwltjUP7JDMv KIOhjO63aZPcLYfaPd4b d1V8f961YIMgVJOxaT40 Zx8uaZhhWENbtQPE wM3nhrowr3duwcgpQhIp NFVqSLd9UNy5PXEbrTca RxByWBK1SsL0BZC6yEFb rU4yoOgebbbsvF2s Oyc+P97gnC2jHWK5SSW4 plwgSCQzfvHyWN68UF78 Y3SwWrrvfDPlkLH+PGRp szSthRqnPV2rKnCk a6lxk4UvCKnuR9MgZMIu COstScj6ZCZfFFC7aGV7 rQ5tYHQjRAvpk1T5rBG3 K9EvpuVapu8lq6si BZBgIPhbW42mjQHww7F3 WDWwlME8QAJcjLneRyTz gM00Gma+GZOrrXbnh9Cq Uqarw4zsb2dmjZb8 IjMwJSIgdmFsaWduPSJ0 v3RsEz15Q79zMAbkEMKy FHDnGCYiTQSaxCivih0w sE0oGg0+PGNvbCB3 dUF7nK8gUMCdIzY9OIzd O735OkUjaSStHwlks1bu h0unmPc3XcCwAFYttqQz wMmbXYV5r1MdAv13 T55kSYacPFMqUDGzBCHc WHBbePhyku2coH9oPx3+ YN3lu1lhgx54qA61vEC+ FQCqHEN4lKitNBlr ZUCozB0pCSqnFwF1NUBi YdFoxJ40hLBhQOhrFb2n tTakyJnpKD4rNOZyeqff u720WxUrc0azLSSt mJKlXLsbUOU3N39yf8O7 LVYwDVKfJDI5bMX1nZ9c bGlnbjogbGVmdDsgdmVy mTdvZPvkYLtlG942 IHRvcDsnPlBhdGllbnQg XuBjOVp3Y0QaXva8BPRq bSxoCO6jlUMoWFzdTd4y sQdyoRelJA6oTVEa mhsuc198BlFlb0lfUSSv bFQrAKewVIE3H83xj6C8 BRRqNJBhSJX1aWB7kM9n bGlnbjogbGVmdDsg ouOiaSjdTMniMAyzW539 IHRvcDsnPkJpcnRoIERh nZX9XZ01DE15fBOmg7F1 qRS2M0WnEHMifywu mnetlCT9WPMoXYMijC30 Cy7fxWpjBk5zDQAyGGW2 FYKixXZsW4FlfC7kRcBi MZMlHSFgP2WqdBYc OOhqX652DTukJvE4DMAa oiLsL2UlKJXiiQdhZdX2 z0Z4Lj0TV9P7ET86BN38 gNTpd4W3iLQ0L0Wa VIOoxfbutzpsvHA6KRBz RHBjzN35Id1dyPunGd6r YGOeWEB5BAZwySNoK1Pr mX5oOuOoLWJiJMXr P2QqvFNlLYkyP515WOwq KcA2GBQgmqQzS3VkLFFt tNzoRoK6z9C6Fi3GMEj0 ME35KC57xFGuw0B1 eLH5F8BgOHBjhjwnevrc jPS6DSQgRSXoaK10Xn6t oBriVg7iIZQrIAM7UHGx mYTmF6JapZ7vOxRl LBVpTTBmG3LudXMxTEud P093SKqyLfE8ZQXwmgEh A7OxQADqhAjjIoO3u2X2 Lf0MNGCgWX35DNY3 fSH0TB79AV54Z2PtMvng dGFibGU+PHRhYmxlIHdp ZHRoPScxMDAlJyBzdHls FC4wMx5rNPDsMXFz uDcbxPOuBmBfi8xtLAPt JIoaQY5tmYlkZ0PuzAY4 ONJsa4t3By10I64lJ0Ke dXA+DSDckGM7fJU1 nZ1zCrPxKiC8OIifQ708 FpAaiCHpPmjbx4yba4vd vVi4AcB4NNZtbxCedRpv ZFX8f2DfPu79M97f IHdpZHRoPSIxNSUiIHZh fMnxmb1wzS6xSw6+PGNv uFU7xTR4iZ5uZoJnZnD1 FFnqU417OnAqvRNi Flzky9vbn8haiZd4RrXe ADCqmwVsjZneDDS2s6Hv Cp03Z5YzmYqtp8DlArj9 nw89mEDah0G6aJP4 R7GnBUZreustqWFtnGgw NT6eURGmxagfPSQjeQ4o LIAcV8f5RxHeNcW9VMmx Y0IvqqH3XOAmnFFj QYnoERL3U56rk6D4ITMk XIAoSGX2tUH5kB7gqGkq bjogbGVmdDsgdmVydGlj FUloYRkoY855RWPt gMrnCHZcxA1yBAMfoKZg bEuaKV6gUERhqhneEyYK Q5ESO09UMULQQ1PXXpSg XOaDFA18M6CkGvq1 PFWfgYuxYG2bpEOpJJgj Zg3qyPusjSemZK3zZNEe cxunCFYsfA9zPDHmiJBp mKwhYJ7eEFQbwmih e985VwQyFPF0OWLtzJFk R7UrvY3kIpLiGEGgPWHy K1RraODiUAhhC208KJrp EeS9JXNhyoZuN8Kb LQCciTovDsI4s3F1Od4v ZI6iHk3cMRR9AR06FL84 yQLhf6K7rBF9S2CvUDZb rbczwtjyyGX5OXLf NDOkpF32xFAoNTjeEg3c b0X5q937XCUwQNUgfO81 Kv6ykAjzCOUqiXIJcU8f gphez9glqomjXqYm VULoGEm2QLt3XSBedZzi KmPaPKH7JqZ4JJA1cBZz zK0grDvaojwcvC8iFyy+ EXTfNGAveaR8E9Ds Lwn2KEWsbIpvOX1aaHBj VIqfAy3fcBspbUewWW4l PMZdsmjeOGMjaT5oXEUh iJNirWrcWA3lEDOk ugpyo333XfXdMZH4HDSe iZVwX6UtbF0vNgScSGTx OQUkM9AptKAjEOzvB165 KZdeTaX1CPQewdEv L7EqEJMssVemAfX0j2B9 Gs6VBKqMOI76MR05mOJr r8O3jQY9G5XiGQFdvzqu kahhzNI2ILToKWYy nT49hHWxPJojIj4nf1P5 b636XAUmABXyiF93Py7q pLufWVPrnMQUkX8dwtop t8qvaoyhKrLnJWEg VNm7BXm9CDHsfBdzNcBk XEA1CiI4CRI8gZSlmB0p vEwydeezgN7zVws+T1A8 W4WiAmwcqZV+PC90 IBSzBC52sGFunOGmi1sf oSz0YvPmRIYjLSI6nAun WGekw7BnELGaP64jmKJx k4T3QPJzsPrrzZBl IsMmiCX6hD3rHIodsink j8hfefzcBrqyv3vkey70 nR94W30rAUpyMZIjCFBi OOUcWMIbwPqygi4h dP0uUq4+TUGnwWJ5mBP0 eU4kAqDxLtW5ABevW730 IzVfnOQwFhrwl8emw0iq nJy9WbQqKMTcdtEo dCggYCE3k4JmVj97W96t IHdpZHRoPSIyMCUiIHZh vLhrev5ipF5wHe0+PC9j k7ksgp04sE20aNL+ CIIvOXR0lGrwNUkpZQBt nL8wGKxeSvA2UPHpPdIm zM56cHFxVVwkEx9zgVnw qObcXE4lPXZxglbh v388RrMfl2thDPWjuXDa VDazQOT4Y91tc6A0WRQx ZAQfXTD7eZM1oJ0enOpv bjogbGVmdDsgdmVy sEfdQLupTWyjA242BEHh sDayNfOyySCwJ4gpofKI VM4eThhflMK+PHRkIHN0 lRvjUWqlGXUvcA8g SYBqK1n1YfGaVgN0YPvn O5NokiE8WEMhdTSxSYAm eBXElQ4fegojx4iuqcdp XhRaWGKvZDi3XVq8 FDTxbBujPqLkKVI8FmK8 FRC6gZFnkW6hlBabwimf cG3tSnr+RklOOjwvdGQ+ WQEnNRN2iJlwROnm NNDybT1mZTBoF1t2WpCo HqC4ZUspJ2FgeoY3EYFt nGRxMPZuxXDBfW6rbmld l3vrudisUwSoLNBx MEd6UWt6TQDvnMtcUdFi SPZ0BgL6QGP3aPWvqQ6c fQzulfpgzN5uKwq+TVJO OjwvdGQ+PHRkIHN0 aGovHUffIDFxtC9sYHQs T0w6ZwEqAzO8RTgnG7Qo vrG3GOVrvPJeIJOthWMC sA5peqfen5qpxrfs EdSeMEUvHPz5TKj1QJBj mMkxTxHnEOE8FaK3ZGC6 iLLioB9ljZiwhjxqkN9m Oyc+IYK3OEU3CM82 XL19S7RdCypusTNnsWL+ PHRhYmxlIHdpZHRoPScx LVVpWpMzvSyrCA3rGj0c ZGVyLWNvbGxhcHNl OiB (more content not included)... Normal [facility] Provider Orderson 06-25-2021 Provider Orders [id number] #[id number] Normal [facility] .Auto Diff 1on 06-22-2021 Auto [place] % 10 % Normal 12 [facility] Comment on above: Performed By: #### 1 [id number], [id number], [id number] ####[facility] (DEFAULT)[address] [place] [address]237 Baso Abs# 0.2 x10 Normal 0.0-0.2 [facility] Comment on above: Performed By: #### 1 [id number], [id number], [id number] ####[facility] (DEFAULT)[address] [place] [address] 43845 Basophils/100 WBC (Bld) 1.9 % Normal 0.2-2.0 [facility] Comment on above: Performed By: #### 1 [id number], [id number], [id number] ####[facility] (DEFAULT)[address] [place] [address] 92557 Eos Abs# 0.4 x10 Normal 0.0-0.4 [facility] Comment on above: Performed By: #### 1 [id number], [id number], [id number] ####[facility] (DEFAULT)[address] [place] [address] 46782 Eosinophils/100 WBC (Bld) 4.7 % High 0.9-4.0 [facility] Comment on above: Performed By: #### 1 [id number], [id number], [id number] ####[facility] (DEFAULT)[address] [place] [address] 24177 Lymph Abs# 2.9 x10 Normal 1.3-2.9 [facility] Comment on above: Performed By: #### 1 [id number], [id number], [id number] ####[facility] (DEFAULT)[address] [place] [address] 85243 Lymphocytes/100 WBC (Bld) 33 % Normal 14-48 [facility] Comment on above: Performed By: #### 1 [id number], [id number], [id number] ####[facility] (DEFAULT)[address] [place] [address] [place] Abs# 0.9 x10 High 0.0-0.8 [facility] Comment on above: Performed By: #### 1 [id number], [id number], [id number] ####[facility] (DEFAULT)[address] [place] [address] Neut Abs# 4.6 x10 Normal 1.5-9.2 [facility] Comment on above: Performed By: #### 1 [id number], [id number], [id number] ####[facility] (DEFAULT)[address] [place] [address] Neutrophils/100 WBC (Bld) 50 % Normal 44-88 [facility] Comment on above: Performed By: #### 1 [id number], [id number], [id number] ####[facility] (DEFAULT)[address] [place] [address] CBC w/ Auto Diffon Erythrocyte distribution width (RBC) [Ratio] 13.2 % Normal 11.5-15.0 [facility] Comment on above: Performed By: #### 1 [id number], [id number], [id number] ####[facility] (DEFAULT)[address] [place] [address] Hematocrit (Bld) [Volume fraction] 45.3 % Normal 34.8-51.9 [facility] Comment on above: Performed By: #### 1 [id number], [id number], [id number] ####[facility] (DEFAULT)[address] [place] [address] Hemoglobin (Bld) [Mass/Vol] 14.9 g/dL Normal 11.8-17.7 [facility] Comment on above: Performed By: #### 1 [id number], [id number], [id number] ####[facility] (DEFAULT)[address] [place] [address] 13302 Instr WBC 9.0 x10 Invalid Interpretation Code [facility] Comment on above: Performed By: #### 1 [id number], [id number], [id number] ####[facility] (DEFAULT)[address] [place] [address] 16962 Man Diff? Auto Normal [facility] Comment on above: Performed By: #### 1 [id number], [id number], [id number] ####[facility] (DEFAULT)[address] [place] [address] 34331 MCH (RBC) [Entitic mass] 31 pg Normal 24-34 [facility] Comment on above: Performed By: #### 1 [id number], 5395458, [id number] ####[facility] (DEFAULT)[address] [place] [address] 99649 MCHC (RBC) [Mass/Vol] 33 g/dL Normal 26-37 [facility] Comment on above: Performed By: #### 1 [id number], 4578906, [id number] ####[facility] (DEFAULT)[address] [place] [address] 77727 MCV (RBC) [Entitic vol] 95 fL Normal 81-100 [facility] Comment on above: Performed By: #### 1 [id number], 0113918, [id number] ####[facility] (DEFAULT)[address] [place] [address] 70698 Platelet 295 x10 Normal 138-427 [facility] Comment on above: Performed By: #### 1 [id number], [id number], [id number] ####[facility] (DEFAULT)[address] [place] [address] 37220 Platelet mean volume (Bld) [Entitic vol] 9.1 fL Normal 6.3-10.2 [facility] Comment on above: Performed By: #### 1 [id number], [id number], [id number] ####[facility] (DEFAULT)[address] [place] [address] 16354 RBC 4.78 x10 Normal 3.70-5.30 [facility] Comment on above: Performed By: #### 1 [id number], 0546946, [id number] ####[facility] (DEFAULT)[address] [place] [address] WBC 9.0 x10 Normal 3.5-10.5 [facility] Comment on above: Performed By: #### 1 [id number], 2629511, [id number] ####[facility] (DEFAULT)[address] [place] [address] 03259 TSH w/ Reflex to FT4on 06-22 TSH Qn 2.41 m[IU]/L Normal 0.45-5.33 [facility] Comment on above: Result Comment: Gene ral Population (males and non- females, aged 21-88) 0.45 - 5.33 Females, 1st Trimester 0.05 - 3.70 Females, 2nd Trimester 0.31 - 4.35 Females, 3rd Trimester 0.41 - 5.18 Performed By: #### 1 [id number], [id number], [id number] ####[facility] (DEFAULT)[address] [place] [address] 51311 US Carotid Duplex Bilateralo n 06-22-2021 [place] Carotid Duplex Bilateral DUPLEX ULTRASOUND EXAMINATION OF THE CAROTID ARTERIES. COMPARISON: None. HISTORY / INDICATIONS: Evaluate for carotid stenosis TECHNIQUE: Bilateral common carotid arteries, extracranial internal and external carotid arteries are evaluated with hogan-scale imaging, color Doppler, and spectral analysis according to a standard protocol. ICA-CCA ratios are calculated with technical support representative peak-systolic velocities and recorded. Vertebral arteries [...] Jules Tilley 06/22/21 2:18 pm Technologist: DIANE [facility] XR [...] Coding Summaryon 05-23-2021 Coding Summary HTMLBase 64 DnoayykvJHw5dLf+PGhl YWQ+GM1DVQSsP40jqYKx sT8NT7rACL5CSHOVBWKA LZ3POZ1guTX7UBnfT8Hb biAv NrxrzLCrWC57DWc0RBG0 eNpiZMcayO8hnGPoK9i9 MpGgHW46bQ31YRcoRXPc KwK0AzPwjojltMZg F9lxOzHvnEZgHye+PHRh YmxlIHdpZHRoPScxMDAl FuPzmNtwPM7nFl2tMDIe LWNvbGxhcHNlOiBj j6avSWOzHHpzYS6jlXqy N6TrjBA9QFDvv9s1Ko65 dHI+FHJlEQE3kTvxIFcf b262RpHnx2tbLGP2 dTDbXGmyTER8U35qi6P7 SFDnLMZvWTC0sYK8rY8w kDtgzaddF1GjbJYlZkI5 XHE0jWFgqK5xsJqg fmbhpY4cRmn+A11IZU3Z EFYGPT0MPad3F1JjXpzo dHI+JJ26NEJzDQ60vMZs dOUqu2gjrYy0YrDx IHDbYQH1iZqlMKihi6Ec NYJvH14oaKPry8S7NKEa uNamoASpJuWicET8tI7r FEypgttot6lvbslk Syocm1qdbw38lV20Z77x MYqtEZFoUMS8FRIqTOPt eSziww0pzV1iHn3+IDxj t8mqk7worEs2JaMo IZXuerUfsZgyNVI7r2Pd Wl03K2DrzPwcb0EvPuu5 sn36tYBqe1O4eEU4XLos GUGhfP5wJQwyIrN9 VSCvDiRsvX57wSToDIxz Lf7bbKgxaXcwRI1fSALi znrzLJFxrZ2tWAAavNTu aBkcIX0hKXYptoig d802GhCgSDS2IAEyaUQi Z4LrcR1bVqAoVGXgEMXu Z0YzyRAlVZffM599NRdf QzJ6SBPecvToL4Fd WGStrFxoOiY6h2Z4Uj3O j2JulrulDYF3VXtoBQT1 CfR1InLiHqB6H7LxRww0 BNCwbPbwSN0rH7Pp GCGvkeqmfshptTC1PLXo JZRpkO10eVWxJBxyKo7b w7P0d261FRNzNIUtuC85 Ij7imZpeYCTmgIQJ qX0ekgdhe0eryoenXcKx PQJtRYv7QIo9AQOskMbu PmNzIZP7HxB1QPI8oTFf hL5mrZcecufyhP2s Oyc+I07frV7tTIA0EBN8 rejzQOEqleJoTK05AZ50 S8MrYlkutNHmmBA+PGRp xmTnkOzmPG3jBmOr r8pzm5XnMYdtX1NzGFVu MVxxJol6LWHkPDD2oWW7 dR8aJZGlTNdut6L1rEM6 T4CyjkIwsb0tn2mq OTCqENqxT62vkSUoq2K6 BKYsdEN9IGNcfZvvBrUw iC78Bxs+XJQnrFmvg6Cs Npvhx4hxz0qrhSw3 IjMwJSIgdmFsaWduPSJ0 k3TaPv33Z27yMXhpLIZe EESkKPArVAHsbCzouf3m mB1iWf2+PGNvbCB3 nAE1kU2dYHPaEjS5RNrb O420FwEjwFUgXporq0hj g1yofUk9CfNmDRCimbNk kNvkOBH9m3OmEm65 Q00bYBmeLAVsWPAkAVNj EOHpnZsavw0xgE4gWo3+ VT0lt3fhfk29hS31dXG+ TCMxQNA9xFkiMHbw ZVQbbA0cINplKrO8TJDb CbMriL60jTWmOGimLm1i aVfneYxqXR6tOEFqkgpj b946AgIbv2leDXNn eYUlEGxePQE8H43yw2B9 PELvPNHlBUM5vYG3cY6v bGlnbjogbGVmdDsgdmVy nNifYXahENtyO709 IHRvcDsnPlBhdGllbnQg UtZjBVc9Y4TxFak3SWAp cTavKK4pgHPiPEanOn8f vDgklGnrCI8oMRIe sycvp728AyEit4aqIMEn tKRdMLhbHRO4R66cc8E5 VXOfEZCzBSK5aMP1yL5t bGlnbjogbGVmdDsg psDzfSzzRHxcUAvoI542 IHRvcDsnPkJpcnRoIERh nUQ7XU23MC53wTBjd1O5 gRX3U5YtBOAzbwnh ilqvvAD8KQLoXUTmfR16 Zz3nqSekGx4uHRLfMUK8 LZMapNVuN9BigV4uUgJp LHEpZFGhX1DucWOt FDjiM493LAykLqN1VOSx jpHzA4YxQNQryToiOyY9 p4J4Fs3PF9Q3XN12KA70 bJAju6C9jAX6O0Ut KVYrvwilgrpepFU4IBFz UHYulM56Xw7abXheBq1z BBVeWDG0EWFoiXWaF8Nu pF9hHkYhDTAwZNSm B3YooGMnQCeyU817YBii MvT4UJYwfmSgN8NfXYAp pInpRyR4o1G7Xq8CTMq8 UM07NP26bUWpm8E9 xDS5A2IrARIvbrjrqwly pKX3NODxLKVstF55Bo0c oOerYv8vJPMcIVL7GJRf mFHwU9XgmW6mJdJc OXBxTDOiN3LzuZIbOGpf Y947CEveLnC4SPGxozLy O1VkCXFvdHqiQzO0x7J0 Bm6VTFZqJT60AHL0 wHA5XS48NY99T3NqSreh dGFibGU+PHRhYmxlIHdp ZHRoPScxMDAlJyBzdHls WW7nQu2uPKNpANSp uAltoPJcAkSzn9zpFQPk HKsxXQ1raIvnO0BlpNB8 VISym9d4Mh90V29rO2Vs dXA+FXFukBV0zIN0 sP5iIqMoFfH8NLhsO532 SgTlrQTpIpyst2bfs4zf nQr9YtP1FABbbvPxkKas RSN2t1GsEh40F57a IHdpZHRoPSIxNSUiIHZh yInmoa1zhA8cNf8+PGNv hHN8nNW3bM3dJrNrJqB5 WEpfK421GpOiaZEz Zgayb8zwu8fglMx2GlXa GOMzzbMueWcxWMR4u1By Qu27Y1PhsCjox2StKfo0 td22eVYci2U0cZG2 F1AvDORnygxhiTJvuCzu BM6lIOIijfacFAUpzV2a MRZbA7p5UqSfObM8CLmh X9EkuiW6RANdcQSn ZQjtJGL7I50aw9M2IGOn NAWkWIV5bHE1cK7rtHex bjogbGVmdDsgdmVydGlj LGhjGCkeE471JDYd wZscQIUkhO3eIBSryUKd zNmgJP9fGCLqcwhbYbBR C4QHA64BPMDZT1XFMaSc MNcFWH94N1HcIuz9 QVHrrUdsNK3saZKvJLrn Aa7auZzikEblOE7zKCRx qoyoMMJdvI4vAEQyxQKq hGfiCP9gUWFxifmk l759OiMqIKW3JKQzgUYg J8GerN2eUoXbTEHfYCDd P0AmzEWjTNncO845OChv WsL8DAOlahYeS7Hc YENvwWwzAbZ3w8D0Fz4g WX7sSz8fQXT8AN90ZB60 dBXlu6T1ySL6F3XnQAPp ataljvzhrNE0TVBn MTParB80tYPtCNiuFp5p o5U8q116MOZoLTMqrC68 Rm2kyTdrQRMwkXYOrJ8h padzj5lihqniCeTt SOWcNHm1LLn7EKWeqWdx XmPwNAL8FnS2GHE0lBDq nH2hnCpniuobkR0yZvn+ TRHxNRWzfbL9D1Oy Mki7MBHamTtoWC8jnDVg EHkhOt3kiKlgvNfhIB9o ECWfcoubNNTlsB3zHANt mBEnqHmnEU3kBXTq uwutq026TpDkHQF5TWXu bSHkP0UbhZ5wSyJxADKb GTHkS1SemJWqFDvbX314 GBtzZtS7TLVjoyBt Y9VdGANlmLelOtL1k1R9 Gm4GFIsHAE20VB25eTJd r3K3cZG6H6UuCWVcnaer cjvspDW7HFQcMDUr kA20lQKgPSqwTx5yx7Q2 r290XCUeKGWngB08Xt8f wArkJBBfwCCMtI5hhppl d1ivrirfLwRbFAAr WZx5EBd5YCStxEwsEaTh XZQ1CsC3HKF4vNUruS6f dZqurjfzkP7eJrp+UmVj jNXmwA0oHL25rVOh qKaoymC7Y5QqCmmejZB+ OA36SMYnRE52fMLgpALe w3zfrVx2FeMkALOmEUV5 gAwoDHuei9YkJHBp L22wiMOmi1U5IKPmvUsk nLEiSyBmnZO1lX0sCQts alfyr0dfkhdpIlerr1zs pp95eA65U01hOXat ZHRoPSIzMCUiIHZhbGln qn1zeQ6mAl8+PGNvbCB3 cAX4sY9uUbXoTdQ1MCuf Y939LzJvrEDtZblc g0uuj3cxkWz1PsJnKAXo tlFawAqdUXN2o4KlSz33 P79nHYtgOITeEFPtHOBm CLRuvYhhfd4ygQ2r Ii8+BS3ny7nibk47lJ45 dHI+JTSrNER4lGqpNNxt ZXVqrG7sRCpaTzF6IIKp IwCceS70zDHvFIiu Zc0hzGgukVyxJT4bFVYh zxvfn701HaLuf6paUAZg kUGkJLowCMW7H18fg1Z1 PIGcDLZcWUD1yRQ2 qM5mzOdardsjcLYkdRdb nrIabPbuSFwfRQzbI188 TGBbzBxwTcMujNPkM1xj lnAIDO6tAcqphRA+ XNOiGBC2lTxySJyeISCw cL1aMKXjH5w5AcAeFtK7 AYvoH9UctwU2UXCfuJSn XAIefQGRrE8rwche o5ybqnsdWgZfHNCyPKt3 COx7ZMWrbPhrDeWrLNY2 GjC1ZZA5dSJgrY1htWss vmaoeG0jGqv+RklO OjwvdGQ+EOUdQUF8bFbp DHxySMYgqT3aOZStC8e6 AdAxPpA4XTdbR2SivfM3 IGJvbGQgMTBwdCBU zL8wygvhk5mibczaHnHv UEMzIBq4OHc0FPFogAul EtEtIXU5TuY5YKE6vZOl uO9gaHaywepyaW8b Oyc+TVJOOjwvdGQ+PHRk XJS4hUwmAUiySYLndC4e DKBmO1s7EvPfXoZ4ILih X9KlskP4LOAunZMh CUHjlOILiP4gkobtm0iv oilvKoHiHXBoENt5TCe6 FZDkjHwzVjBtEZK2AaX3 YTW5xRMznW2stCxs cwihjJ2wPal+PKF1YTF5 EM18WZ21J3CcAsxgrIYv bGU+PHRhYmxlIHdpZHRo PScxMDAlJyBzdHls ZT0 (more content not included)... [facility] Provider Orderson 05-17-2021 Provider Orders [id number] #[id number] [facility] Coding Summaryon 04-27-2021 Coding Summary HTMLBase 64 HhkdojdxSFt7jSg+PGhl YWQ+NV3ANKXcA73kbYEk iY9YA8aNDU8VEWFCAJHP NP5BYI2edJG3WVqkF0Ck biAv FllmmSUmGM61PTr2JOV0 wXjmEStzqN0bbLPjS9z5 VpBzPJ30cX06WQrtTMZa WaG6KqWiwziqzLEa C5adHbUooXDzRkj+PHRh YmxlIHdpZHRoPScxMDAl PrIexUgsFN7iQm7oNYDl LWNvbGxhcHNlOiBj s1waLQGpYAggKN0liGkk H6RxwCF1VDAmp8h6Xp41 dHI+OLBxTTN9kYdyKHds o551JtHol7aaLTB8 lARfXEfiLRT0H19kf2X7 FFKeGQXrZJO1dAU9gO1a cIupxmrtT7VxdMAuKmJ0 EQH5yHIhjC4qfFya pvzmkX9eLsm+W62TEM0I SYFOXL3LJff6H6WvElnh dHI+TS70HFRoGE65fOKu jQKnc1pdeHu2DxWi FIFiWMW3fMttMDjpz9Nk RTOgH01jgFMzp6S6LNSi hCrdsZCgRaZyoUC8xZ1j HAxgmnrhm3mjuqkd Iutcj9vusn19mX13Y88q EYvnPSCjOTY3WSTyBJRz sKcguz3ktL2sGx9+IDxj p6wmy8truOv4KoRc GAEvceFuyNssQPY3t7Eo Xs38C8GntRsfp0IlCld1 ks44iIHky5T7hNJ2YFec NQBowC0kQEaaMtL4 FNYkGwKprQ05sHAuITkf Re3llOyhpVcmAY1mIPGe bsybCVRzhU3dSCRkvZFc uRwjWI8gRXNxbeao u304WgAmVGU7EYLhjZRm K4NoeS2zDgTuANLyMKAg N2UsrVKbLNfkY229WDtt BcM2QWZxjdTnC5Ow YNHvkUzdHvC9p1V3Co5G h7NmirhhKOI9QZlnNIN8 ZvQ9EdAlNtI6R4CuMyg9 VIUhfAmoHS2tY6Uq ZCAjeaozbsnhbVV3CVLr KHZmfT76aPKbQEunUl3l e4K7z211FJUpKDIoeZ69 Cr0auAycBBEpfNZR xK5wxatta0uchpmyOmHo PPHyJYr2XXs1NAHjoQpl OsVhKDI2ErT3EEY3hPWs tN2smXcxypounJ2f Oyc+O94eeN5uTLF7HTI7 fkdaHCJhznQpTM17GG00 L0QeHcgwwSGrzOB+PGRp drUxzTqjLF8iTtIe j0zfa9WsZVmcV7FpFZEn VKpjAly2LUVmHFW7fJK9 fR0cUSHiHOyea8J1uRQ2 H6VtgzTmxn0iv4de YJGyYUcpV42zlVPmq5B2 EUSxhFQ8QGHccSmeNpEi xB75Syk+KCZvnQjyv3Ta Dbuna9pee4lcjTm8 IjMwJSIgdmFsaWduPSJ0 i3PuTi93S63vPWtiWNXb RVHxJDPyWBAiiAgmxd1j gY7bHo4+PGNvbCB3 jRH7xV5ePAQjKaK8ZFla K333NbJwsULiRvseh6be j1mpeRo8LgIyVSGwdkKs eGreBIM7v6AsRw00 N51rVIyyWIJlIWQmUITs GAHpmDxkrm2wyO3oKq6+ OK0wl2jblf79cM32gXY+ BYJoZIX7tCgeHSwf FHFrcM7rNMysMkF9KKAd BqGnhB36iHPcCHgvCd1i tTsixTlqCQ1dIOMbacpx c897GiMix7dpIBHu xWAkHEifWKY7L82tx1B8 JZGpONCtWOY2vCE0fF8q bGlnbjogbGVmdDsgdmVy jVmnZHxwJXwlM034 IHRvcDsnPlBhdGllbnQg LoCzJVd8X6SvMkj8TZDm wJulMB3blTHsBQinAm7g sNsidXzdBP9cMMBq eydza504FhOzt1xhHFDw dWHpDCzeIXO0E45uy3P8 MGJbJEGgSCS1sGK1gV3r bGlnbjogbGVmdDsg jlUtlTpfASqmOHnzB430 IHRvcDsnPkJpcnRoIERh eVJ3PB19DF58gZMxo8J5 pCB2O4AvYIWbgbek mogchTS6DQGoIBVgaF70 Uq8kpVpuLr7gWVYcSPS4 DPWhuCWlI9ZlfX4lAsYy STArQEDzM4XakRXp JYpoH487DHlwWpL3LFUf rbTcW1OpCEAioGoqSlW9 u5K9Zi5EO0Y3VI90JS99 bRTkv4Z5mCM3K7Vu CMSspmdagwzxhSC6UBWe QYBtnA42Am1seMaiRg2h PIVzBOH9SCZfgQTuP3Qe uQ9qHwZgYNCaWYAg V2PlgEPeKQncE517EUal CdM6DECnytWsS0JzPOXy oZwtRoK3z2U2Or8MNGx2 II15HM61eXYvk2V7 cRK8F8VqSWQsncxcctje yUC7QIDlXAKarI37Xa9u wNswMc9oXXGgIRU7UVUc nHCiS9DlyE5sSbWl HNJfHSLgE7WlaVDcSFwd H763THlhMjV4JBVntmIk B9CsWTPaiCacSkS8e6G9 Uy3WWBErJK27KER5 uZD0MI84RV05H1FrCkws dGFibGU+PHRhYmxlIHdp ZHRoPScxMDAlJyBzdHls XA2dWb4wFTTzJQPy nFldpQBrZnMtb4plMZHu GMzpHU6taCwcS3CcpOQ4 CHPlp8h3Qq11T50kF8Ct dXA+FJRvsGY2wKQ7 qC8bKlRpPdC3DVgmF210 CiGdaXFdMzhxy7jqc9xv jZv7QdO2DAFdcgVmtQiv TQY1c2RaFh40W32z IHdpZHRoPSIxNSUiIHZh cAfeoz9vdP9cVt8+PGNv lOY3iGJ3cU9nPzHcFsG7 VQzfQ140MiEexZBp Qnvrp9mkl6kbxBm5YjGs VCQpqeVluWbwJKZ3j9Qh Ta88Z7JojMlot1ImGlo3 pq23eVIyp7Q9iSF0 V6JcRSMkqzqizAJpwMhq UD3eZGQwjukpLJOsqF3g TRDcL5n5SpLaHeU5PAhv W5JvxdX5WVUutAHq BNycQTS4T85le1H7BQRo OHEtSKY7tTH6cX8cmYrl bjogbGVmdDsgdmVydGlj FGsyCZatV394ZXYd gJqsRLZrmV9uIVNrkTYk lYexIE6fHADjtabmLfUE D6MLU37CCOQQO3EDEvVh FGmTTX20H9DlXro3 WDCjyVadWV9rfBFyJJrp Ah3tcZynxFaiHC3yOQIf ggyyZJPfbX5qTDRkfOYq gGkdMA6qOMAjivkz a186ZhClIGO6LQNipIPo G5XvsW8oYtIoEDVoPYZo E7UroUJcHWanH827XSxj TrZ6ZMDwkhBfJ1Ef CVEkbHaaAhX3t2K6Ed3j RQ5hJx1yGBD5EE34FL06 eUBaf3G7kSP9W3BqYMKr dlsncqetiRH0WSHk SMKfvU33oHXfZSveUk8z h8O6x046IEKnZSFocG98 Il2jvPdfLVUqdQIHdQ1d fujyp4sckmtaClIy IZNdUBh2XWo0JFFicNmp KjPxRBX6AdH3OIQ2gXQn lB4wbSjfppjogB5xUdz+ NBWyHKTfqmU4C4In Mnj2LDIcpDhpNW8tpJBr GAptMe2kjHkndSldTX3h DJJwtvctJYMbzM2oMCHy nMWelRefMO5oJKIt qetue444SnMrTXZ9CKIa lFKiE3XhgW0mIcBcHZJn ZWViB4MjwYIqGPmkM114 OZojHeG8VCSvjxMs X0YqNOWunOqpKyG8u6B1 As5QPIlCUM82NT88jMNa h7C5dEA0T9HaYCHmjqdj yrvblNX2FGDwGAZw fQ21cOSdTJdjXj3ld5T9 g508RLBvHXShmX02Yi8x tPuaYGPirGXXvH0zkkou d9lsxuwnNnYhMTVl GMl0GXt0FQXplRlbNtSf WIA8UkT0ZZZ6iTUhnM7m uDrzpwbdvR1xGgr+T1A8 F7PkAqhmmBR+PC90 KLKkKW16mGVkcLKak2un nKe1OxZgBSSvGSX6xYii EXtqo3IdAFYmD07qdQSn w2O3ANLyvTgpuAUa SfLjmZG7rD5iMVqvsouz k5nogqoaLtcmc4qrej77 rQ26T12mIBhrLFGoUHHo KWGzFWSagSimlq4v xT7vDg1+LIByaJM9qSB5 iL6kTwTzRuN4IMqlT844 XhYciBZmLiigk3rrd9ft vAa1YvSpLKMpwkTe oTavDAO6n2HrQa82H84u IHdpZHRoPSIyMCUiIHZh nSttcm1ydU0fFk8+PC9j u1xfpa00yB11vHK+ YTIoNUS5oVveNMpwSVDm cG7lXEymKaW9WFLlEmDh zI57gTFfAKbpGw1fwXga tUdtPU9qSVEidcqb z517OjQat5omABJzcVOe UQqyHZY5E79dh4F3EFPb GFObIWX4lSD9oQ7ctQpy bjogbGVmdDsgdmVy cJfgJIpqEIfcO299EIGd pWutMnVvwPPvG0tezfMO ZG4xDunodTL+PHRkIHN0 gOriWQejKDTygO2u VUZbC5a5QqJcNdR1BRqv I9GijaC7TLPzuAOhTJMe sVHScL0oznafg7xyikin DtZyRAFtMNy9FYl1 QFCtsSwnEzFxYBR0FfP8 DLV3vCWmyE0pzKktqowu zQ5vYhc+RklOOjwvdGQ+ ZOJgZAL3xNhoUWgh QUNlxI8gUWUzW7d4BxQr RzH7XSggL4DmoqM4USIc yIEcVEHhjAWAlJ6nmocd e6azeqxrIqMhVRIv STq8QPp8WOTpqRiqThYx ZQL2JbV6GYM3hEKjsQ5y sJnzsdzevE2dXpz+TVJO OjwvdGQ+PHRkIHN0 tQnoKOgrTJEhqW9kXFBe P6h0ZcAtKnK6LQddK2Tl pzZ6KBAkjVGrXQJmwCRN gY7fqsuay0bjlnjl IcEsHGXgHMk7YAp1FGFn pPclQgLcMUB4ShH6AWC6 fREfxK7bmHefnmshvR7b Oyc+WTR6ELY5FG18 CC16B3IhDajalXEcwTM+ PHRhYmxlIHdpZHRoPScx XOUyGzIaxSfnJW5oPd1b ZGVyLWNvbGxhcHNl OiB (more content not included)... [facility] Coding Summaryon 04-06-2021 Coding Summary HTMLBase 64 IulgyvoiZXp8tSe+PGhl YWQ+SE1YGUXxE30ltUTt wA6SG3cBUP4QHGHVINJV OH9DMV2wnDT6LKcuB2Ku biAv XjakuSXqZL49TRu2JAG6 xErqYQzwhT6iqOWaF1n6 FaMwKY46pT91TPgdFLGi GeY9DrBpimalwDOy U2ofRrYopXXrVoe+PHRh YmxlIHdpZHRoPScxMDAl DaUfdPxgMF8cQf9zBKZq LWNvbGxhcHNlOiBj w9vzDWJmQQojCK6ojEcx M2AkcON6QOUdj1d4Jv78 dHI+JOFlUEA0cUsaTWwv k938MpMms4hdTCM8 dBWsRDonPHY7T48jd2X0 XKGgVQBkYTQ6xDO0jE6o aRoqfjpbU6AayOTvIlG2 BSY5kXErcL4ljYjy qvuyjH9jFbp+O64QJL0N CYWFID8HQpi6E6VzPmme dHI+RQ06KOKfVS68pJGk dQEvt3aopIu0LxTc DMBcPPK1pNhxKDbwk3Wg SGUsB52epKFbf0K2ENCl oBxtyRVxQeKiwDO1hH0g ZEpxunbnk7kcewmr Npori2gaoh40qS45X74a DPdtIYYjMLC5GZShFVUf yTtzzf1cmT5hEi4+IDxj m5rom4sieXs0WsUv OPGnsuEapUeuMDD6t6Mq Mg00X4JtdExcn6HpTyx7 yl20cPMqv6X1pUY2JZbo VMEjfV5gYBywMaZ5 PLNaUdRbiI48mKNsAMux Wg1vrYxofBisVV7hZBGs kknxOXByjJ6lTUNueTIr nYroDL5fSICglhqx o803UkQoRPE5CBNrdNDt X6OonW5mWaLcPVFyZZYz P5EocAYxHYvqD507NRgp TeT0KZBtklBkA3Ss ZQJacSfeLnH0j1A2Va1Q h9FiklzdLNM6VPbkYKR0 MmY9JyXdFjB3S4YlWlm0 ZBJwaZnuCK6wF2Pp WSZclfkkqjcbtIZ1AONw ANKztQ14hRVwHWrbNg6f e1A9f798IPZnOEQynR01 Th2rnTttEAVjhBQW nK9ugzwkx7zjduzuNiWy QKKmZZr9RDs7XRNwaVsh DkMwQFR0UbQ0XYH7yVUi cV9oeUdxowwotV6g Oyc+V77jtA0rUNZ1TPS5 ccofATAvxgHaDI70XU15 R3IcBwmewOOnoKI+PGRp xeYwsMqxDB5vOlLz k1aol3EbOKevB6AnRZYf ETtuMkj8XONfLKG9bOZ4 fF5qZZLkOClqj5U2zCN1 N4UqtbJluz5eh4qt RDUcLIbdQ25jaQCfa2R2 QMBlsRF1EFRzfZmnZrXk xY79Qnx+NKOcdTojy8Vh Pexcj6myw6djwAv5 IjMwJSIgdmFsaWduPSJ0 f6PoTd09I56rNQmpYNBs JJLcKRZkIKIpbNqhix8y tM9nFx7+PGNvbCB3 hHF2oB5uIZIbDxJ5UHys J416ItMiuBVpYvxsu2tc w0ydsDd1UwPaPPEojnTx kCvkBSM8l0MxFh01 W53hPZdyTGPwNQNvRYCk WXMsiYwmjl1osS3kNk6+ GJ7ne3funi16aI71fDB+ MKOzYQM1aLtfMAft UZFvtK0cCKqjEnL6JLYw MuQdpZ29nHEuEWyoKz8i iKwvmGohOF6bQAJcvdal n656PuTpf6baDRJs qGZfCJuyQOF1Z81sr8Z5 OBBnLIWoLEG1vEU6fD1l bGlnbjogbGVmdDsgdmVy bBveZOqkKQagE820 IHRvcDsnPlBhdGllbnQg JlFoJAj4Q3VaRpw8WLQh yDknFH4wgKHoXKqfSl0d iBxiyIfrMU8vBVBg ocxbk207YkVwq0lkOXXn yPUaVBlcVTG3S82bt4J3 TAWvWMLiIXM9bVC4cU0z bGlnbjogbGVmdDsg gpCrdZiwVAeoQTwjJ645 IHRvcDsnPkJpcnRoIERh pLH4KF16TX01iFLus5L7 iWP2W3AgOLBbodas uohhwJZ0VKKyYZRtwT05 Wd3otQbvEo4xRDGfLHP6 JFXlnLTdW8HaeJ4cKpNb KETqSJGrJ1EhtZOw KLblA766EMizFqL7PDUj djAxR8FiQPFevMybTiP2 v2P1Ue8PN8D8BO42WU88 nXTfi7H1eTZ3Y2Oi BAIuwxuhoibhnRF9JPMh BHSmhC34Db8okCifJs8d XGUxYIX2ZWNhvWXkE4Mz hN1pEgSwYHCrISMi Z0KvzXAwHRsjX149DFhi OrA6AGEembEaQ3RlQDXv pEjjMuN7n7Z7Px6ODPa3 LW71LK54eABtw1H3 cXI1I8ZnYJQdjusbmmfg xSX0XEDeKSUatU31Ov4q bAqdZo4jLSRvAOQ1UOHi cFKcG2ZhvH0mKzEu UUYzDRGyI8SfnXQwFBxc P931YFjvUvU0SHGhttBf Y9EfWWAruTiuTiS4k1R0 Ro2KBXZcIR08QKQ3 vYE8KG26LA85F7SdPwsg dGFibGU+PHRhYmxlIHdp ZHRoPScxMDAlJyBzdHls FU3xIl5cFTMdTVRf wEcweBTiGbEhc1ftLNWa KGghGA5rkWrxZ9McfDV7 OMFol7r2Us81L17cX0Gr dXA+IAPdfBO6oOL5 hQ6gLuHdQiD9UEmzO179 HsYsrVIgUiilw5cqn2xf hSg9DsJ2MJEteoYqdJrx OZW9d9GoWo00U27i IHdpZHRoPSIxNSUiIHZh kPisyp7acI7oGt8+PGNv yKH4sRH0pR0qHsNmQcO8 QDkqN999DtTbbGTz Klevn9obw7uueXp6FrSv CSWgbnSdmRqwRPZ1r4Uz Sz91W4PhlMsxt6MzYiy6 ii63iRBus8V6dTJ0 N0OuBFYytvlrgIYwbCuc FS9dIUJbivgoYRStqO5f JMYvL2j1VgAzLsQ4ASdc K6UjsfR3WQCojVIf IYzgIWE5O52fh7U8OKSy GHBjOZB7jXX9tS8tpQxz bjogbGVmdDsgdmVydGlj BOzaZUgjC173KECl xRunZNPebN4nRGEtyOSn zQcfMN2uLLGeefnwTeNB L8RBS57ZBHVXU2HYUxZn APhVCH18A4VwRlu4 HUVrrRklXE2ebNGnBJge Mi5gtKwnrNpxTM9bPHAn tppaJKZzcN0tGEFpwBTw aEliWM4lXIKwepow l223WxGeEUC6PNVwjFIf Z4FvnG4eJsYbUBBqHSNk A5ScmEHjULpaI706VTwn SjK9YDZdudEkV2Hp NMWwwZrdFyG7o5R4Bg6u SF8rFh8nRRA8FA70WP29 dKLic0U4lLA0S2ZpACNg yrpetiozaAY2KZVo BZXavX54gPKaOCirXd2f d6Z3s842GKFpIVScsJ02 Lb3olTysLLAmrMTIcU4t wbhvw9fqndpjNyUp DEMjQRu5STh0VAAalJyk NcIxQKW2NhQ7QAY9sVGd dA9tyEkgxntbyA4qTzz+ LJAjWCDqdkJ6Y4Gu Qdq8ESQnwGxmHL1wnXBz RBqdZd1utGfmtEhjFY1b HMNbjhbaAGOmaI9wDJHc oCBfoOfbHU3xJSUk mpjwo158CxAjHRI8ZEAs hTYxX1AldA8mDzWkFHAk AETpK8KjdNRwNEqpB228 SQokGiM8ZHRvbcNm L9RnNGLlvXkbOgL6j9W6 Af5QOMfKKU68IN98aTZs z0N8fHS6X8VkPQPyqivq gnybkCV3VSYaMVXp kB03qGQdTEkfZd4gy5Q7 i150ESHgXMHaqQ39Kl3u yFvvFHAjmPYLaR8hmzlr a8yntpcbTuGtJKEr ZGn3FCp3FTNviJkcBkIr DIK0QwU7UVJ7nQHmkP7w jEmzdwoylU9sBco+RW1l enlyrqS3RZ70XH73 K2DqOgeftERczTI+PHRh YmxlIHdpZHRoPScxMDAl NxRmkYmhYD8mLa5eAXSs LWNvbGxhcHNlOiBj h7kwCHMjGOczUQ1xwEdj X5TosFX5GMBss4h9Kw14 N75gJ6CelXK+PGNvbCB3 sAQ1eX8pIpWnAyY7 IActS399UlMymUQpDxfh d1fhk5wczTj8XmReKAKg kdOgmPzvXGQ8k3VdHq17 N94uXJlrTDMnJLKq GJEyGWKscZotra7iqI9u Ii8+OOMbcKW5iUB4tK9i PtIhOyP6RHneE921MzTt fAYqEgxuC66rS8Zr dXA+NYCbSkm1RSXrtZwz TG1oyMOpECadFh5dINU7 SmIjEyYlAObjA6AuEDIs zwnbntlduRC1ITQu QUMpoM85Sw5skLrgXv3a WNLgDJA8DESboIIqN3Qb yF4uKjUbQVSvJVEiN0Dq fGBvGWafC206WGcp YqG6MKLbxbPiQ6WoEOKp yNzyAmF1u4I4Lm2VkFpo bUAjEG9pElSnNCd9O2Tu Bjl2OPBwfHegNX5i qBJwKRxhHy0ndSdmzDoy EN1uCMWpveuiy081DtTo j0auECKkhGFeLBmyCHF5 J83rz2Y4DCRfRNDm GJG3vMM9iR0yzSpbvgkq bGVmdDsgdmVydGljYWwt VRsjI527XOPaqJghWqBS Afq8E2CtHiv3FWHw cMxaDG0dhFJvQZpqQp0c lRiliCjjCF5eEVSenvlc y430QwBtk2emNYJhnTQe JSxgZFH6K29mb2B2 GDEwIYLyYUV1yLN6eJ9d bGlnbjogbGVmdDsgdmVy wTokEIgoGWmwQ036MIMu tZxfNn7BNqc7X5Er Fyu2XCAeqSaaSL1zgWGq JFpwNc1meJrqqSluKG1s YKSprblow616CrMve5qq IDEwcHQgVGltZXM7 V11hw0X5HIJkZINaKFW1 xBN9dZ5tcAsqvmvueWXv dDsgdmVydGljYWwtYWxp Y941VJAgwKpyZvOq eWVyOjwvdGQ+WA49na36 Q7WyDjbuRdo8BIQwFQA6 iTM9jH7hCPFoRQybn3X8 hYT6I9WlvhRpyd7h b2x (more content not included)... [facility] Coding Summary HTMLBase 64 RxvrevnnOHj2sSk+PGhl YWQ+PE3RBITbK06hxFJp eP2DE0qAVB2KPZUYEILT SV9DPL4nsQG1EExmN9Lh biAv AlxgfNQeJY87AWp7DDD7 xTdjPSyomS0waRRmI8n2 NnMmAB92sQ34THmwNBYl BzO1PrNuzfbifQZo Z9cfFdXoyTSzZvx+PHRh YmxlIHdpZHRoPScxMDAl FhXjiNwxZB4dTn3uHEAe LWNvbGxhcHNlOiBj e2vnXEKuIVnzJJ7jbXjn U8IuoSY0YUUhv4u6Bx19 dHI+TVUfUZG5nQjlDZjg c871VsZie9fiOQR5 kHLkGSbyMXA3E27lq5A1 ZOOiZLRnPAP7iGL5zV0t nZgewzzpM4SayNKwNkW4 WAG4tFAbsV8jsUdl agbouB5kFlq+S66QSZ8Z DUPTNV3NCtk3M9InJorx dHI+WQ67LCKpGF66kAGf eYIuc3bhnZz7PeBe XDRbFYG9eCtjVRtvl0Qu RGJrC51ycYLcl2B8OISi pByuzMBgJjWfwDZ6aB0o DQrnrtydx1dnuwwa Lplsy3dcvs74jM52O63v FJgaBQWfYLX6ORGmQLZt xVsyoy1coB0dQn7+IDxj e4abc0mqnBa4PuXf LYHiopThyYyiPMA0k5Iu Ry17B9IoyHqcm6WyZop9 om28qRVsr7W1eHB3RHgq VSWbyJ0jMHerWbR0 VLPkIxXqxD12wPYwLIpm Fq1gjUlciNzfEC5gKUPz opgfDPRfqJ6vBIVpsLTl oMpzNL9rMPUzehug p371FrUtFOB4PVIesKDx V1ZjyB7dMrHqQOLjNXUp T3ShkGNuQBbrZ575BRxj RxB8DYIpaoOxV9Jd APUilNneGjA8n0P2Fa5N u2OssjvlOLE2VTkpWHC3 SyP1SyCcYyA7Q9IkCwv0 GEBaoEyiZM3xG9Ky MXKwgiozyvixyXU1DBEy NVCneZ36bLIeOIsrCe9d z4D9r342ZVBrNHKuvG52 Nr5edNfxUENlqYWZ gG3feqxtr1ebiwtdGhLf ZOIqEJf0ABv2FNYjxSzx CdKvUGM6OsJ2KWT0jHFj nZ0mzJsxnwnqiH9p Oyc+K14ogH6zMVF4RVL5 vtulVYWcmgCiFU26UD84 P2HtGlrqjNNvuLU+PGRp iaBmbKmyFS5pNfFq j3kfa7IlFHclH5RvGUJl DVrzXsp9HHNiSYQ1mIR8 pL2kNSLbFWovd9B8lWI3 P0CebzStis3rq4af DXZaKZmeI93yjPQwz2I4 REZibBP6MJFaxMylFbAs iX71Jok+ZRYojIuyh7Mk Yhqwz4ore7qozFq7 IjMwJSIgdmFsaWduPSJ0 r7AfFn95Q13eWEjjOHBt SJXlNWYvIUXfuQdzfc3t mT1jGm3+PGNvbCB3 xSO5mM1sOLJvSkT9MIqo D931YyTjhDMuUczpy5yi x4wzgQs9RaJkYPMwnsFh iJorGWY2y7GiZx84 Y31eWPuiIXTlHDEgMJXk UMUujOlpqa4vgW7jXk2+ TJ6iz6mhsx70cA42fKI+ EEDcBCY8tScbSKrp CHUyzI4jCNheQwR9KULx XzDmfY78tVDjUOsdUh7o vNjxdSgoBH6dNCHqnivk u143SnDdu6qpVFUq nZRsTQluTIW5Z72eb2Y1 BZJnMNXbNES8vGZ1cL3h bGlnbjogbGVmdDsgdmVy gDtcVEzyNLrtE973 IHRvcDsnPlBhdGllbnQg WdQgCQb8L8PqGwi3WXJz hTtjAF3qvMPuKEyzLb7v bMgcvXzxWJ5iLPDz sahof397XsFfi4ydOAWn wUQyIWoeHZD3E72wi0D5 ZDHzXIHaTQA6zOY5hZ8v bGlnbjogbGVmdDsg qcBslOchXAhuWQheW090 IHRvcDsnPkJpcnRoIERh dKY0AI47CR39fGGga4X3 iPE8A9HkQKHgkcnr rijdbQM2UEUbXAQwqA31 Oz1pkQfeXv1sLIYjNJS3 EZTjxKGmP4DvnS6fDyLe UYQrNFNtL7BkiWSx KGnoI047INtnTcG8ZNAk ngWqR7ZzFUGzrMzkOrW6 l2H0Lq6GJ2K5NI74SF83 pWDdb3B5wXG9I7Vr WNGyfxftbeoovXI8GTGx RTRdqA41Rq1wiEguEq3f PBRlIVW8AXChnKVuH6Lg nP9iMdAoTLTdKDIc S8OzeRMuIGnmP847OLur IwY3WZJyxlLvV8XvFHQa zKayApL7m9L7Yy2XWHl3 XU23QG29gUOqg3F5 zDL1V1EvFWBbgifpgdwx pNQ6NDAlAXZmbH41If1u rTtfDj5jYETlNAY8HKNe vNOiC6QvlT4vVsUl ZPYrIKNkA2XgwTJqPGoy O743YWaeHnC7QEIsgxQv R6PpWYCkpNdwDbD5c5R8 Cc9XBDSwRQ52VRN0 bFI9KG56AR69Q9XgUpzr dGFibGU+PHRhYmxlIHdp ZHRoPScxMDAlJyBzdHls IP0xMv9yIHIfYFUs dXwoeSRaUsExm1kwCMMk NEzoWM0tpFblQ2JjpXV5 TYPgx5g5Gb71S25yM6Oh dXA+HILzxRM9xKM4 zV6cZdUaAoI1SQmnW084 JhIwoRDwDzmjb1jof4yj pPw8EbL1ZIInqwFryKyh OOZ0y9XuXh33K26s IHdpZHRoPSIxNSUiIHZh tEnesu5xwR9pFo9+PGNv dFF6nRL4sT2sMcNbSeS5 BIurV656NtLtkGFl Sofoa2uqg7srjRu7IfQn LRNgnyRbeVovUPL3i1Ag Rg17R6NiwTrtz2BwZiq8 ff05xWBia5L3vYA0 A0YyPTBbxlsvvVGlwXig NT2xZVIlaiofWMGmpL9k AARiQ6d7RxKyKiV3ELwq O1HevmY3CIWxoQSj ZYovULD1N68fr9K9VVMi UYXgEAI9yXD6uC0ooJyj bjogbGVmdDsgdmVydGlj YBorHSizN117QDCa vCkgMPXdhO7wPHTuaBAs qXigBR1nOTKwqwppMjCQ M2YVW94UQPKDG7SZOtYu ARhCDL99B3EaAfq2 CPSbmVifCN9slCMlVNml Ph0boUkyvQkhKI8dPLVk rdxqLJTckI7sKHJfbOQy wPmbXI5xQAPwfgou c917ZqWsVFL4LYVxqHQg O7NcqU9bAwKaMZJwUXYn C4HtoEBiWZofJ245WMur XyF6XRAfkzHuZ0Fk DDMbbQfaQqY0r6O2Fo0t MF3xEu2jFHW9BA02DG36 mPFay6P0rOS9Q0IaPOXr dzubmclunDX3NDMx TXKucA63fMPcYVklTl5k h1Y6r671BFIeXHMgnA25 Ye0vvAqfZMSgvWIEzP7m szoax2lrlifgIeIg XEZkXGf4GJi0IUXjmBvg FfXwLDU6FpL0BQY2kPVu nO8rcWyqxnytnN9dHac+ HQLyAIUoszV5C7En Dct7HLQpkMrmEG4cjKUg JUmzGv8hrQjopDniUZ8l IPFquuhaETQvqJ4bQNKs fSEqfTyxDM1cDZGs rkkux845XeIjPXB3JVAu xKMqL7ZuaR5pZeIyAROb ZZKnO6GqbBBxONpbF227 ZCofJkY4MCAspwOm N5KvFAQrpCioImF4p6P9 Ms2VIRfOBA54ER72nKUy j3U2fLJ6K3QoXBFulnvp wynlpBN0OPJlJEHx rG72aYXtRAkaLh5oh3R1 t249DHHvDOEeqS84Kc6d rIrjXAFrdYURpT7sqaoy p2ojewfhQxNsPEDa MNf4NDr8FEGwlYunCdBl LHK4LrE0DRL8jQCcgF8i uAqnzyzrhE8yMlm+RW1l hbxsxkW0NM66CX16 E3YzPemtuDMorYB+PHRh YmxlIHdpZHRoPScxMDAl XoYdnWwmRS2wLf2kZDRv LWNvbGxhcHNlOiBj p8eeBRVgIGlxLR9irTel E2UuiTB0FLEvt9x8Wd06 E31aA5ZriUJ+PGNvbCB3 gPO8wC0eNkNgYrN8 ROdjO841EwDzsSGvYxvv l2wku5spyGk9BlMgBOUu vhLwyCjmPTJ1h1SgAe10 D78iJIhbFPVuIDZk JTOiBRHakMmiry9qkW5x Ii8+MNJpfPV0zSN6fA8w IdQxWjG2MLaqD983NaMj fCVsXmyvM33iO7Eg dXA+MQLmQfl4KKFyzCde AB9smJRqUTbiNg5tMXH0 FhCxMyYvWNokD9GlUYMl fhuhcvnaaRU0ZNBz CVZzdT35Pi9oaIhnGm9m ZYIdIZR7ASMqqAXmB0Zc sB8lCaPpESBdJILjL5Zx uNLkUOfhP770EWcf MuB8XQGeanLaR2GtHENq eGvqItA6s0L7Iv0CkBlt xJEzFD0yXtEnRZv2J8Ui Dau3ZMBpaOeyCM1g qKTpTInwVt7slRypoXuz DB9uAIElvddme452QbKh w0nlJISzbPWkVOxtBHP6 L35ry4J6OCSqLBVb EHE6jDS4xI4zrBigvgcr bGVmdDsgdmVydGljYWwt QOzzA856IFGigTctKyPF Xvg3W6MzCis6UCNi iPomBM5kwFPgXJteKp3h yPvjkDhaIE1zBHHmocak h237XfCrz7oyJLGcpKVl DWewTVW5A84mc7U2 BGImCFBkKII7vDM4qI4z bGlnbjogbGVmdDsgdmVy uWqjYYnuUKzlL010LTVe eAogRe2RPym8O9Zo Ssf4OEZueXtfDG4rqJRy GZunZw7gxRxckBrbIM6k RTLrvzwzt011RfIsr8mu IDEwcHQgVGltZXM7 U77nl0A0BLNvNHEeDRN5 kOX7eS9hyCqbiockgMCp dDsgdmVydGljYWwtYWxp J361QHXsbAxwMqTr eWVyOjwvdGQ+GA66hd81 F1LtUsjiZbn6LHWiWZH4 wFL1pG4jLJGhGFeke0S6 aVI5L3BhjrFfxj3q b2x (more content not included)... Normal [facility] ED Clinical Summaryon 2020 ED Clinical Summary [facility] - Emergency Department [address] [place] [address] [id number] ED Clinical Summary PERSON INFORMATION Name: ROSA EASTMAN Age: 55 Years Sex: MALE : 1965 MRN: Acct#: Visit Reason: Hand pain-swelling; RIGHT WRIST PAIN Arrival: 04/01/2021 19:05:43 Discharge: 04/01/2021 19:35:00 LOS: 000 00:30 Check In: 04/01/2021 19:05:43 Checkout:04/01/2021 19:35:00 Address: [address] [place] [address] PCP: Provider, None PROVIDER INFORMATION Provider Role [...] Forearm Exercises-SportsMed; Cryotherapy Follow-Up: With: Address: When: Andrwe Mckenzie DO [address] [place] [address] Within 3 to 5 days DIAGNOSIS: 1:Sprain of right wrist Patient Understands: Yes - Patient/family/careg iver verbalizes understanding of instructions given Comment: Normal [facility] ED Patient Summaryon 021 ED Patient Summary [facility] - Emergency Department [address] [place] [id number] PATIENT DISCHARGE INSTRUCTIONS Patient Information Name: ROSA EASTMAN Age: 55 Years Date of : 1965 Reason For Visit: Hand pain-swelling; RIGHT WRIST PAIN Arrival Time: 04/01/2021 19:05:43 Primary Care Physician: Provider, None Attending Physician: Medhat Hernandez MD Comment: Visit Diagnosis: Diagnoses This Visit Hand pain-swelling ([id number]) Sprain of right wrist (S63.501A) Prescription Information: If you have been given a prescription for narcotics, seek immediate medical attention if you have any difficulty breathing or any sudden status changes such as confusion and sleepiness. If you or anyone you know is experiencing suicidal thoughts, mental health, alcohol and/or drug addiction problems; contact the [facility] 02/06 Crisis Hotline -text 4hope to 741741. [...] documents With: Address: When: Andrew Mckenzie DO [address] [place] [address] Within 3 to 5 days Medication Information: The exam and treatment you received today in the [facility] Emergency Department were for an urgent problem and are not intended as complete care. It is important for you to follow up with a doctor, nurse practitioner, or physician?s liaison inspection laboratory assistant for ongoing care. If your symptoms [...] so we can reach you if necessary. [facility] Emergency Department has provided you with a complete list of medications post discharge. Please inform your live in companion/provider of your visit and for further instruction on these medications. Any specific questions regarding your chronic medications and dosages should be discussed with your primary care physician(s) and/or pharmacist. Medications to Continue That Have Not Changed Other Medications acetaminophen-hydroc odone (hydrocodone-acetami nophen 5 mg-325 mg ([place] 5)) 1 tab(s) Oral Every 6 hours [...] With poor (more content not included)... Normal [facility] Vital Signs Date Time Vital Sign Value Performing Clinician Facility 02-20-2023 14:00-0400 Body height 172.72 cm Josué Evangelista Other [facility] Other 02-20-2023 14:00-0400 Body mass index (BMI) [Ratio] 32.08 kg/m2 Josué Evangelista Other [facility] Other 02-20-2023 14:00-0400 Body weight 95.71 kg Josué Evangelista Other [facility] Other 02-20-2023 14:00-0400 Diastolic blood pressure 80 mm[Hg] Josuéyousuf Evangelista Other [facility] Other 02-20-2023 14:00-0400 Systolic blood pressure 130 mm[Hg] Josué Evangelista Other [facility] Other 01-22-2023 09:40-0400 Diastolic blood pressure 84 mm[Hg] DO Britt Rumschlag Work Phone: [facility] 01-22-2023 09:40-0400 Heart rate 70 /min DO Britt Rumschlag Work Phone: [facility] 01-22-2023 09:40-0400 Respiratory rate 16 /min DO Britt Rumschlag Work Phone: [facility] 01-22-2023 09:40-0400 SaO2% (BldA) [Mass fraction] 96 % DO Britt Rumschlag Work Phone: [facility] 01-22-2023 09:40-0400 Systolic blood pressure 136 mm[Hg] DO Britt Rumschlag Work Phone: [facility] 01-22-2023 08:47-0400 Body temperature 98 [degF] DO Britt Rumschlag Work Phone: [facility] 01-22-2023 08:12-0400 Inhaled oxygen flow rate 10 L/min DO Britt Rumschlag Work Phone: [facility] 01-22-2023 07:35-0400 Body height 172.72 cm DO Britt Rumschlag Work Phone: [facility] 01-22-2023 07:35-0400 Body mass index (BMI) [Ratio] 32.4 kg/m2 DO Britt Rumschlag Work Phone: [facility] 01-22-2023 07:35-0400 Body weight 96.8 kg DO Britt Rumschlag Work Phone: [facility] 03-13-2022 11:45-0400 Body height 172.72 cm Harvey Holt Other [facility] Other 03-13-2022 11:45-0400 Body mass index (BMI) [Ratio] 32.23 kg/m2 Harvey Holt Other [facility] Other 03-13-2022 11:45-0400 Body weight 96.16 kg Harvey Holt Other [facility] Other 01-14-2022 14:30-0500 Body height 172.72 cm Harvey Holt Other [facility] Other 01-14-2022 14:30-0500 Body mass index (BMI) [Ratio] 32.23 kg/m2 Harvey Holt Other [facility] Other 01-14-2022 14:30-0500 Body weight 96.16 kg Harvey Yanet Other [facility] Other 09-19-2021 11:00-0500 Body height 172.72 cm Harvey Holt Other [facility] Other 09-19-2021 11:00-0500 Body mass index (BMI) [Ratio] 32.23 kg/m2 Harvey Yanet Other [facility] Other 09-19-2021 11:00-0500 Body weight 96.16 kg Harvey Holt Other [facility] Other 09-19-2021 11:00-0500 Diastolic blood pressure 87 mm[Hg] Harvey Holt Other [facility] Other 09-19-2021 11:00-0500 Systolic blood pressure 130 mm[Hg] Harvey Holt Other [facility] Other Encounters Encounter Date Encounter Type Care Provider Facility Start: 03-15-2024 End: 03-16-2024 ambulatory Richard Lezama MD [facility] Start: 02-09-2024 End: 02-10-2024 ambulatory Richard Lezama MD [facility] Start: 01-12-2024 End: 01-13-2024 ambulatory Richard Lezama MD [facility] Start: 12-22-2023 End: 12-23-2023 ambulatory Richard Lezama MD [facility] Start: 12-08-2023 End: 12-09-2023 ambulatory Richard Lezama MD [facility] Start: 10-15-2023 End: 10-15-2023 ambulatory CANDIS N DEXTER [facility] Start: 10-14-2023 End: 10-15-2023 ambulatory BRITT RUMSCHLAG [facility] Start: 03-04-2023 End: 03-05-[address] DOCTOR GARCIA Facility:[facility] Start: 02-28-2023 End: 02-28-2023 ambulatory Josué Evangelista Other [facility] Other Start: 02-28-2023 Telephone encounter Josué Evangelista [facility] Start: 02-20-2023 End: 02-20-2023 ambulatory Josué Evangelista Other [facility] Other Start: 02-20-2023 Postop follow up vis it related to original px Josué Evangelista [facility] Start: 01-22-2023 End: 01-22-2023 Admission to same day surgery center DO Britt Rumschlag Work Phone: [facility] [place] Start: 01-22-2023 End: 01-22-2023 ambulatory Josué Evangelista Facility:[facility] Start: 01-22-2023 End: 01-22-2023 ambulatory DO Britt Rumschlag Work Phone: [facility] Take the Interview Work Phone: Start: 01-13-2023 End: 01-13-2023 ambulatory Josué Evangelista Facility:[facility] Start: 01-13-2023 End: 01-13-2023 ambulatory DO Britt Rumschlag Work Phone: [facility] Work Phone: Start: 01-13-2023 End: 01-13-2023 Patient encounter procedure DO Britt Rumschlag Work Phone: [facility] Work Phone: Start: 12-06-2022 End: 12-06-2022 ambulatory Josué Evangelista Facility:[facility] Start: 12-06-2022 End: 12-06-2022 Patient encounter procedure DO Britt Goodman Work Phone: [facility] [place] Work Phone: Start: 08-10-2022 End: 08-10-2022 [facility] Facility: Start: 07-08-2022 End: 07-08-2022 ambulatory Candidayousuf Hinkle Facility:[facility] Start: 07-08-2022 End: 07-08-2022 Patient encounter procedure [facility] [address] Start: 06-21-2022 End: 06-21-2022 ambulatory Candidayousuf Hinkle Facility:[facility] Start: 06-21-2022 End: 06-21-2022 Patient encounter procedure [facility] [place] Start: 03-13-2022 End: 03-13-2022 ambulatory Harvey Holt Other [facility] [employer] Other Start: 03-13-2022 Office outpatient visit 15 minutes Harvey Holt [facility] Start: 01-14-2022 End: 01-14-2022 ambulatory Harvey Holt Other [facility] [employer] Other Start: 01-14-2022 Office outpatient visit 15 minutes Harvey Holt [facility] Start: 10-16-2021 Admission to [facility] Harvey Holt [facility] Start: 10-16-2021 End: 10-16-2021 ambulatory Harvey Holt Other [facility] [employer] Other Start: 09-19-2021 End: 09-19-2021 ambulatory Harvey Holt Other [facility] [employer] Other Start: 09-19-2021 Office outpatient ne w 45 minutes Harvey Holt [facility] Procedures Date Procedure Procedure Detail Performing Clinician Start: 01-22-2023 Decompression of uln ar nerve DO Britt Petersenschlag Work Phone: Start: 12-06-2022 X-ray of cervical spine DO Brittunruly Fontenotlayamila Work Phone: Start: 07-08-2022 MRI of head Plan of Treatment Date Care Activity Detail Author Start: 01-22-2023 End: 01-22-2023 [facility] Start: 07-08-2022 MRI of head MR head/brain wo con [facility] Start: 07-08-2022 End: 07-08-2022 Patient encounter procedure Departed Clinical [facility] [address] Patient referral [facility] Work Phone: Immunizations Immunization Date Immunization Notes Care Provider Fa cility 03-07-2021 COVID-19 mRNA, Comir philip (Pfizer) [facility] 02-14-2021 COVID-19 mRNA, Comir philip (Pfizer) [facility] Payers Date Payer Category Payer Unknown 2022 Medicaid [id number] 2022 Self-pay [id number] 1965 Unknown [id number] 2.16.84 0.1.268525.3.579.2.593 1965 Unknown [id number] .16.84 0.1.984633.3.579.2.593 1965 Unknown [id number] 2.16.8 40.1.926699.3.579.2.173 1965 Unknown [id number] 2.16.8 40.1.258128.3.579.2.173 1965 Unknown [id number] 2.16.8 40.1.924461.3.579.2.173 1965 Unknown [id number] 2.16. 840.1.186317.3.579.2.196 1965 Unknown [id number] 2.16. 840.1.911753.3.579.2.196 1965 Unknown [id number] 2.16. 840.1.340235.3.579.2.196 1965 Unknown [id number] 2.16. 840.1.154660.3.579.2.196 1965 Unknown [id number] 2.16. 840.1.455375.3.579.2.196 1957 Unknown [id number] 2.1 6.840.1.223538.19 Unknown [id number] 2.1 6.840.1.371773.19 Unknown [id number] 2.16.8 40.1.365816.3.579.2.531 Unknown [id number] 2.16.8 40.1.855801.3.579.2.531 Unknown [id number] 2.16.8 40.1.860251.3.579.2.531 Unknown [id number] 2.16.8 40.1.984842.3.579.2.531 Unknown [id number] 2.16.8 40.1.282844.3.579.2.531 Social History Date Type Detail Facility Sex Assigned At [facility] Other Start: 10-16-2021 End: 01-22-2023 Tobacco smoking status FLIS Smoker (finding) [facility] Start: 1965 Sex Assigned At Male F [facility] Medical Equipment Procedure Code Equipment Code Equipment Origin al Text Equipment Identifier Dates BONE 7MM DUO FORTITUDE SERIES FDA Start: 10-16-2021 Spinal fixation plate, non-bioabsorbable ()[id number] FDA Start: 10-16-2021 Bone-screw inter nal spinal fixation system, non-sterile ()[id number] FDA Start: 10-16-2021 Bone-screw inter nal spinal fixation system, non-sterile [id number] FDA Start: 10-16-2021 BONE 7MM DUO FORTITUDE [...] 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 I will see him on an as-needed basis I think he has had a good outcome overall. [facility] Other 05-04-2022 Evaluation note* Encounter Date Diagnosis [...] Cervical spondylosis with myelopathy (ICD-10 - M47.12) [facility] Other 03-29-2022 NoteEducation Materials Neurology Paresthesia Paresthesia [...] or sweet foods. General instructions ? Take klyb-xow-vrgitmm and prescription medicines only as told by [...] provider. Document Revised: 11/22/2019 Document Reviewed: 11/05/2018 [employer] Patient Education ? 2020 [employer]. Orthopedics Cubital Tunnel Syndrome Cubital tunnel syndrome [...] ? Playing contact sports, (more content not included)...[facility] 01-14-2022 Evaluation note* Encounter Date [...] will see him on an as-needed basis. [facility] Other 11-10-2021 Evaluation note* Encounter Date Diagnosis [...] They understand and would like to proceed [facility] Other 09-27-2021 Note [id number]#[id number]05-23-2021 NoteEducation Materials Orthopedics Wrist Sprain, Adult A [...] health care provider. General instructions ? Take rwxe-vjf-ggjavrn and prescription medicines only as told by [...] provider. Document Revised: 10/09/2018 Document Reviewed: 05/15/2017 [employer] Patient Education ? 2020 [employer] Wrist and Forearm Exercises Ask your health care provider which exercises are safe for you. Do exercises exactly as told by your health care provider and adjust them as directed. It is normal to feel mild stretching, pulling, tightness, or discomfort as you do these exercises. Stop right away if you feel sudden pain or your (more content not included)...[facility] note[facility] Other evaluation noteNo assessment information available [facility] Work Phone: History general Narrative - Reported* Type Description Date Surgical History (R) carpal tunnel release Surgical History (R) Ulnar nerve release Surgical History tonsillectomy Hospitalization History See Above [facility] Other Hospital Discharge instructions Additional Instructions Use [...] Any unusual redness or drainage contact the [facility] Work Phone: Summary Purpose Family [...] 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) Referral Organization [facility] urosurgery Referring Provider First Name Harvey Referring Provider Last Name Yanet Referring Provider Specialty Neurosurger y Referred Organization [facility] Referred Provider Jonn Singer Referred Address [address], [place],[address] Referred Provider Specialty Neurology Referral Priority Routine [...] section and content) DATE CREATED AUTHOR 02/16/2022 [facility] DATE CREATED AUTHOR AUTHOR'S ORGANIZ ATION 01/23/2023 [facility] DATE CREATED AUTHOR AUTHOR'S ORGANIZ ATION 03/08/2023 [facility] DATE CREATED AUTHOR AUTHOR'S ORGANIZ ATION 10/18/2023 [facility] DATE CREATED AUTHOR AUTHOR'S ORGANIZ ATION 03/21/2024 [facility] REASON FOR VISIT (unrecogniz ed section and content) Referred Dr. Magaly Medeiros ical Discacdf C3-43 months po ACDFEMG RESULTSright ulnar nerve release4 wk po/ Right ulnar nerve/ [id number] Care Teams (unrecognized sec tion and content) Team Status: Inactive Member Role Status Dates Candida Alexander PA-C Attending Provider Active Britt Goodman , DO Primary Care Provider Active Team Status: Inactive Member Role Status Dates NON STAFF Primary Care Provider Active Candida Alexander PA-C Attending Provider Active Team Status: Active Member Role Status Dates Britt Goodman , [...] BE BASED ON THE PRIMARY CLINICAL RECORDS. [facility]. provides no warranty or guarantee of the accuracy or completeness of information in this document.
== END 2024-03-25 12:29 | disposition home or self-care (01) ==
LOC: PM 12:28
PROVIDERS: PCP Family Medicine; Visit Provider Nurse Practitioner
DX: M47.816 Spondylosis without myelopathy or radiculopathy, lumbar region (principal); M53.3 Sacrococcygeal disorders, not elsewhere classified; M48.062 Spinal stenosis, lumbar region with neurogenic claudication; M79.18 Myalgia, other site
CPT/HCPCS: G0463

== ENCOUNTER 2024-04-19 08:44 | Day surgery (SDC) | payer MEDICAID, SELFPAY ==
--- OUTSIDE RECORDS SUMMARY | 2024-04-19 08:59 | XMS_ITS ---
Patient Summarization (C-CDA 2.1 CCD) Created on: April 19, 2024 Rosa Eastman : 1965 Sex: Male Author Organization Sample organization Care Team Providers Care Ekg Manager Name Role Phone Harvey Holt Unavailable NON STAFF Primary Care Provider UnavailDAPHNEY Sotelo Attending Provider Rummassiellayamila, DO Britt Primary Care Provider Rex, DO Britt Primary Care Provider MD Josué Evangelista Attending Provider Rex, DO Britt Primary Care Provider [...] Britt Primary Care Unavailable Josué Evangelista Unavailable [facility] Primary Care Unava ilable MITCHELL TRAYLOR Admitting Unavailable MERCEDES ENRIQUEZ Consulting Unavailable MITCHELL TRAYLOR Attending Unavailable JONN HARGROVE Consulting Unavailable MITCHELL TRAYLOR Consulting Unavailable RADHA, DR GARCIAS Attending Unavailable MISC, DR GARCIAS Consulting Unavailable [facility] Primary Care Unava ilable RADHA, DR GARCIAS Admitting Unavailable RUMSCHLAG, BRITT Primary Care Unavailable YVONNE CAMARENA Referring Unavailable YVONNE CAMARENA Referring Unavailable RUMSCHLAG, BRITT Primary Care Unavailable DEXTER, CANDIS N Admitting Unavailable CANDIS RENTERIA Attending Unavailable BRITT PENALOZA Primary Care Unavailable Lise RAWLS, Andmagdaleno Guaman Attending Unavailable Lise RAWLS, Andrius Guaman Attending Unavailable Lise RAWLS, Andrius Deniz Attending Unavailable Lise RAWLS, Andrius Deniz Attending Unavailable Lise RAWLS, Andrius Guaman Attending Unavailable Allergies Allergy Classification Reported Allergen(s) Allergy Type Date of Onset Reaction(s) Facility (7 sources) penicillAMINE Drug Allergy Unknown Cymbet [facility] [employer] Other (7 sources) Bee Sting Drug allergy Unknown [facility] Other (5 sources) Penicillins; Translations: [Penicillins] Allergy to substance 11-23-20 21 Unknown Reaction [facility] (5 sources) venom-honey bee; Translations: [venom-honey bee] Allergy to substance 1123-20 21 Swelling [facility] (1 source) bee venom Drug allergy (disorder) [facility] (1 source) Penicillin Drug Allergy [facility] Encounters Encounter Date Encounter Type Care Provider Facility Start: 03-15-2024 End: 03-16-2024 ambulatory [facility] Start: 02-09-2024 End: 02-10-2024 ambulatory Richard Lezama MD Facility: [facility] Start: 01-12-2024 End: 01-13-2024 [facility] Start: 12-22-2023 End: 12-23-2023 ambulatory Richard Lezama MD Facility: [facility] Start: 12-08-2023 End: 12-09-2023 ambulatory Richard Lezama MD Facility:[facility] Start: 10-15-2023 End: 10-15-2023 ambulatory [facility]IS [facility] Start: 10-14-2023 End: 10-15-2023 ambulatory BRITT PENALOZA [facility] Start: 03-04-2023 End: 03-05-[address] DOCTOR GARCIA Facility:[facility] Start: 02-28-2023 End: 02-28-2023 ambulatory Josué Evangelista Other [facility] [employer] Other Start: 02-28-2023 Telephone encounter Josué Evangelista [facility] Start: 02-20-2023 End: 02-20-2023 ambulatory Josué Evangelista Other [facility] [employer] Other Start: 02-20-2023 Postop follow up vis it related to original px Josué Evangelista [facility] Start: 01-22-2023 End: 01-22-2023 Admission to same day surgery center DO Britt Rumschlag Work Phone: [facility] [place] Start: 01-22-2023 End: 01-22-2023 ambulatory Josué Evangelista Facility:[facility] Start: 01-22-2023 End: 01-22-2023 ambulatory DO Britt Rumschlag Work Phone: [facility] Work Phone: Start: 01-13-2023 End: 01-13-2023 ambulatory Josué Evangelista Facility:[facility] Start: 01-13-2023 End: 01-13-2023 ambulatory DO Britt Rumschlag Work Phone: [facility] Work Phone: Start: 01-13-2023 End: 01-13-2023 Patient encounter procedure DO Britt Rumschlag Work Phone: [facility] Work Phone: Start: 12-06-2022 End: 12-06-2022 ambulatory Josué Evangelista Facility:[facility] Start: 12-06-2022 End: 12-06-2022 Patient encounter procedure DO Britt Rumschlag Work Phone: [facility] [place] Work Phone: Start: 08-10-2022 End: 08-10-2022 ambulatory [facility] Facility: Start: 07-08-2022 End: 07-08-2022 ambulatory Candida Hinkle Facility:[facility] Start: 07-08-2022 End: 07-08-2022 Patient encounter procedure [facility]-MRI [address] Start: 06-21-2022 End: 06-21-2022 ambulatory Candida De La Cruz [place] Facility:[facility] Start: 06-21-2022 End: 06-21-2022 Patient encounter procedure [facility] Start: 03-13-2022 End: 03-13-2022 ambulatory Harvey Holt Other [facility] Other Start: 03-13-2022 Office outpatient visit [address] [facility] Start: 01-14-2022 End: 01-14-2022 ambulatory Harvey Holt Other [facility] Other Start: 01-14-2022 Office outpatient visit [address] [facility] Start: 10-16-2021 Admission to [facility] Harvey Holt [facility] Start: 10-16-2021 End: 10-16-2021 ambulatory Harvey Holt Other [facility] Other Start: 09-19-2021 End: 09-19-2021 ambulatory Harvey Holt Other [facility] Other Start: 09-19-2021 Office outpatient ne w [address] [facility] Medical Equipment Procedure Code Equipment Code Equipment Origin al Text Equipment Identifier Dates BONE 7MM DUO FORTITUDE SERIES FDA Start: 10-16-2021 Spinal fixation plate, non-bioabsorbable ()[id number] FDA Start: 10-16-2021 Bone-screw inter nal spinal fixation system, non-sterile ()[id number] FDA Start: 10-16-2021 Bone-screw inter nal spinal fixation system, non-sterile ()[id number] FDA Start: 10-16-2021 BONE 7MM DUO FORTITUDE SERIES FDA Start: 10-16-2021 BONE 7MM DUO FORTITUDE SERIES FDA Start: 10-16-2021 BONE 7MM DUO FORTITUDE SERIES FDA Start: 10-16-2021 Goals Date Patient Goal Desired Activity /State Immunizations Immunization Date Immunization Notes Care Provider Augustus rich 03-07-2021 COVID-19 mRNA, Comir philip (Pfizer) [facility] 02-14-2021 COVID-19 mRNA, Comir philip (Pfizer) [facility] Medications Current Medications Medication Drug Class(es) Dates [...] ophthalmic solution (11 sources) Prostaglandin Analog Start: 11-23-20 21 take 1 drop(s) into the eye(s) once [...] 17, 2021 1:00am January 13, 2023 9:23am Payers Date Payer Category Payer Unknown 2022 Medicaid [id number] 2022 Self-pay [id number] 1965 Unknown [id number] 2.16.84 [id number] 1965 Unknown [id number] 2.16.84 0.1.868047.3.579.2.593 1965 Unknown [id number] 2.16.8 40.1.895733.3.579.2.173 1965 Unknown [id number] 2.16.8 40.1.132288.3.579.2.173 1965 Unknown [id number] 2.16.8 40.1.523295.3.579.2.173 1965 Unknown [id number] 2.16. 840.1.973204.3.579.2.196 1965 Unknown [id number] 2.16. 840.1.261992.3.579.2.196 1965 Unknown [id number] 2.16. 840.1.525398.3.579.2.196 1965 Unknown [id number] 2.16. 840.1.001652.3.579.2.196 1965 Unknown [id number] 2.16. 840.1.502327.3.579.2.196 1957 Unknown [id number] 2.1 6.840.1.420733.19 Unknown [id number] 2.1 6.840.1.775835.19 Unknown [id number] 2.16.8 40.1.410683.3.579.2.531 Unknown [id number] 2.16.8 40.1.186089.3.579.2.531 Unknown [id number] 2.16.8 40.1.409836.3.579.2.531 Unknown [id number] 2.16.8 40.1.658886.3.579.2.531 Unknown [id number] 2.16.8 40.1.709462.3.579.2.531 Plan of Treatment Date Care Activity Detail Author Start: 01-22-2023 End: 01-22-2023 [facility] Start: 07-08-2022 MRI of head MR head/brain wo con [facility] Start: 07-08-2022 End: 07-08-2022 Patient encounter procedure Departed Clinical [facility] [address] Patient referral [facility] Work Phone: Problems Active Problems Problem Classification Problem Date [...] amnesia; Translations: [Other amnesia] Onset: 06-21-2022 Episodic Procedures Date Procedure Procedure Detail Performing Clinician Start: 01-22-2023 Decompression of uln ar nerve DO [facility] Work Phone: Start: 12-06-2022 X-ray of cervical spine [facility] Work Phone: Start: 07-08-2022 MRI of head Results Test Name Value Interpretation Reference Range Facility H. pylori Antigenon 10-16-20 H. pylori Antigen Specimen Description .FECES Direct Exam NEGATIVE Report Status FINAL 10/16/2023 Normal [facility] Comment on above: Performed By: #### F HPY #### [facility] [address] [place], [place] [id number] Physical Therapy Aide: Guy Ramey MD [facility] [address] [place] [address] Physical Therapy Aide: Justus Darby MD Surgical Pathology Reporton 10-15-2023 Surgical Pathology Report (NOTE) Path Number: [id number] -- Diagnosis -- A. GE junction, endoscopic [...] for each. Microscopic examination performed. Processing Lab: [address] [address] Interpretation Performed at [address] [address] SURGICAL PATHOLOGY CONSULTATION Patient Name: ROSA EASTMAN [facility] Rec: [id number] [facility] ANATOMIC PATHOLOGY [address] [place] [address]. [place], [place] [address] Normal [facility] CBC with Diffon 10-14-2023 Abs. Basophil 0.17 k/uL Normal 0.00-0.20 [facility] Comment on above: Performed By: #### C DP #### [facility] [address] [place] [address] Dr. [place] [phone] Physical Therapy Aide: Justus Darby MD Abs.Imm.Granulocyte 0.04 k/uL Normal 0.00-0.30 [facility] Comment on above: Performed By: #### C DP #### [facility] [address] [place] [address] Dr. [place] [phone] Physical Therapy Aide: Justus Darby MD Abs.Neutrophil (Seg) 5.08 k/uL Normal 1.50-8.10 [facility] Comment on above: Performed By: #### C DP #### [address] [place] [address] Physical Therapy Aide: Justus Darby MD Basophils/100 WBC (Bld) 2 % Normal 0-2 [facility] Comment on above: Performed By: #### C DP #### [address] [place] [phone] Physical Therapy Aide: Justus Darby MD Eosinophils (Bld) [#/Vol] 0.43 10*3/uL Normal 0.00-0.44 [facility] Comment on above: Performed By: #### C DP #### [facility] [address] [place], [place] [address]83 Physical Therapy Aide: Justus Darby MD Eosinophils/100 WBC (Bld) 4 % Normal 1-4 [facility] Comment on above: Performed By: #### C DP #### [facility] [address] [place], [place] [phone] Physical Therapy Aide: Justus Darby MD Erythrocyte distribution width (RBC) [Ratio] 12.3 % Normal 11.8-14.4 [facility] Comment on above: Performed By: #### C DP #### [address] [place], [place] [phone] Physical Therapy Aide: Justus Darby MD Hematocrit (Bld) [Volume fraction] 44.4 % Normal 40.7-50.3 [facility] Comment on above: Performed By: #### C DP #### [facility] [address] [place] [address] Dr. [place], [place] [phone] Physical Therapy Aide: Justus Darby MD Hemoglobin (Bld) [Mass/Vol] 14.6 g/dL Normal 13.0-17.0 [facility] Comment on above: Performed By: #### C DP #### [address] [place], [place] [phone] Physical Therapy Aide: Justus Darby MD Immature granulocytes/100 WBC (Bld) 0 % Normal 0 [facility] Comment on above: Performed By: #### C DP #### [facility] [address] [place], [place] [phone] Physical Therapy Aide: Justus Darby MD Lymphocytes (Bld) [#/Vol] 3.86 10*3/uL High 1.10-3.70 [facility] Comment on above: Performed By: #### C DP #### [facility] [address] [place], [place] [phone] Physical Therapy Aide: Justus Darby MD Lymphocytes/100 WBC (Bld) 36 % Normal 24-43 [facility] Comment on above: Performed By: #### C DP #### [facility] [address] [place], [place] [phone] Physical Therapy Aide: Justus Darby MD MCH (RBC) [Entitic mass] 30.9 pg Normal 25.2-33.5 [facility] Comment on above: Performed By: #### C DP #### [address] [place], [place] [phone] Physical Therapy Aide: Justus Darby MD MCHC (RBC) [Mass/Vol] 32.9 g/dL Normal 28.4-34.8 [facility] Comment on above: Performed By: #### C DP #### [address] [place], [place] [phone] Physical Therapy Aide: Justus Darby MD MCV (RBC) [Entitic vol] 93.9 fL Normal 82.6-102.9 [facility] Comment on above: Performed By: #### C DP #### [address] [place], [place] 1623083 Physical Therapy Aide: Justus Darby MD Monocytes (Bld) [#/Vol] 1.05 10*3/uL Normal 0.10-1.20 [facility] Comment on above: Performed By: #### C DP #### [facility] [address] [place] [address] Dr. [place], [place] [phone] Physical Therapy Aide: Justus Darby MD Monocytes/100 WBC (Bld) 10 % Normal 3-12 [facility] Comment on above: Performed By: #### C DP #### [address] [place], [place] [phone] Physical Therapy Aide: Justus Daryb MD Neutrophil (Seg) 48 % Normal 36-65 [facility] Comment on above: Performed By: #### C DP #### [facility] [address] [place], [place] [phone] Physical Therapy Aide: Justus Darby MD NRBC Automated 0.0 per 100 WBC Normal 0.0 [facility] Comment on above: Performed By: #### C DP #### [facility] [address] [place], [place] [phone] Physical Therapy Aide: Justus Darby MD Platelet mean volume (Bld) [Entitic vol] 9.6 fL Normal 8.1-13.5 [facility] Comment on above: Performed By: #### C DP #### [facility] [address] [place], [place] [phone] Physical Therapy Aide: Justus Darby MD Platelets (Bld) [#/Vol] 297 10*3/uL Normal 138-453 [facility] Comment on above: Performed By: #### C DP #### [facility] [address] [place], [place] [phone] Physical Therapy Aide: Justus Darby MD RBC (Bld) [#/Vol] 4.73 10*6/uL Normal 4.21-5.77 [facility] Comment on above: Performed By: #### C DP #### [facility] [address] [place], [place] [phone] Physical Therapy Aide: Justus Darby MD WBC (Bld) [#/Vol] 10.6 10*3/uL Normal 3.5-11.3 [facility] Comment on above: Performed By: #### C DP #### [facility] [address] [place] [address] Physical Therapy Aide: Justus Darby MD Basic Metabolic Panelon 03-0 Anion gap [Moles/Vol] 9.8 mmol/L Normal 6.0-15.0 [facility] Comment on above: Performed By: #### C BC, BMP #### [address] [address] [facility] Calcium [Mass/Vol] 9.1 mg/dL Normal 8.2-10.2 [facility] Comment on above: Result Comment: PERF ORMED BY: [place] [address] PATHOLOGIST MAPPING TECHNICIAN GENEVIEVE CANNON M.D. Performed By: #### C BC, BMP #### [address] Chloride [Moles/Vol] 104 mmol/L Normal 95-114 [facility] Comment on above: Performed By: #### C BC, BMP #### [address] CO2 [Moles/Vol] 25.9 mmol/L Normal 22.0-30.0 [facility] Comment on above: Performed By: #### C BC, BMP #### [address] Creatinine [Mass/Vol] 0.98 mg/dL Normal 0.64-1.27 [facility] Comment on above: Performed By: #### C BC, BMP #### [address] Estimated GFR ( Camila > 60 [facility] Comment on above: Result Comment: GFR estimated reference range: According to KDOQI guidelines, <60 ml/min/1.73m2 is sufficient to diagnose a patient with chronic kidney disease. Performed By: #### C BC, BMP #### [address] Estimated GFR (Non- Am > 60 Normal [facility] Comment on above: Performed By: #### C BC, BMP #### [place] [address] [place] Glucose [Mass/Vol] 82 mg/dL Normal 70-100 [facility] Comment on above: Result Comment: [place] Glucose Reference Range is dependent on time and content of last meal. Glucose of more than 200 mg/dL in a nonstressed, ambulatory subject supports the diagnosis of Diabetes Mellitus. ADA recommended reference range Performed By: #### C BC, BMP #### [facility] [address] Potassium [Moles/Vol] 3.7 mmol/L Normal 3.5-5.1 [facility] Comment on above: Performed By: #### C BC, BMP #### [facility] [address] Sodium [Moles/Vol] 136 mmol/L Normal 136-146 [facility] Comment on above: Performed By: #### C BC, BMP #### [facility] [address] Urea nitrogen [Mass/Vol] 11 mg/dL Normal 9-23 [facility] Comment on above: Performed By: #### C BC, BMP #### [facility] [address] Basophils Auto (Bld) [#/Vol] Ordered By: Josué Evangelista on 01-13-2023 Basophils (Bld) [#/Vol] 0.1 10*3/uL 0.0-0.2 [facility] Basophils/100 WBC Auto (Bld) Ordered By: Josué Evangelista on 01-13-2023 Basophils/100 WBC (Bld) 1.2 % . [facility] Calcium [Mass/volume] in Ser um or PlasmaOrdered By: Josué Evangelista on 01-13-2023 Calcium [Mass/Vol] 9.1 mg/dL 8.2-10.2 [facility] Carbon dioxide, total [Moles /volume] in Serum or PlasmaOrdered By: Josué Evangelista on 01-13-2023 CO2 [Moles/Vol] 25.9 mmol/L 22.0-30.0 [facility] Chloride [Moles/volume] in S lai or PlasmaOrdered By: Josué Evangelista on 01-13-2023 Chloride [Moles/Vol] 104 mmol/L 95-114 [facility] Complete Blood Count Auto Di ffon 01-13-2023 Basophils (Bld) [#/Vol] 0.1 10*3/uL Normal 0.0-0.2 [facility] Comment on above: Result Comment: PERF ORMED BY: [place] [address] PATHOLOGIST MAPPING TECHNICIAN GENEVIEVE CANNON M.D. Performed By: #### C BC, BMP #### [address] Basophils/100 WBC (Bld) 1.2 % Normal . [facility] Comment on above: Performed By: #### C BC, BMP #### [address] Eosinophils (Bld) [#/Vol] 0.5 10*3/uL High 0.0-0.45 [facility] Comment on above: Performed By: #### C BC, BMP #### [address] Eosinophils/100 WBC (Bld) 4.7 % Normal . [facility] Comment on above: Performed By: #### C BC, BMP #### [address] Erythrocyte distribution width (RBC) [Ratio] 12.6 % Normal 12.0-14.8 [facility] Comment on above: Performed By: #### C BC, BMP #### [address] Hematocrit (Bld) [Volume fraction] 41.2 % Normal 38.8-50.0 [facility] Comment on above: Performed By: #### C BC, BMP #### [address] Hemoglobin (Bld) [Mass/Vol] 14.1 g/dL Normal 13.0-17.0 [facility] Comment on above: Performed By: #### C BC, BMP #### [address] Lymphocytes (Bld) [#/Vol] 3.4 10*3/uL Normal 1.00-4.8 [facility] Comment on above: Performed By: #### C BC, BMP #### [address] Lymphocytes/100 WBC (Bld) 33.3 % Normal . [facility] Comment on above: Performed By: #### C BC, BMP #### [address] MCH (RBC) [Entitic mass] 31.7 pg Normal 27.5-35.2 [facility] Comment on above: Performed By: #### C BC, BMP #### [address] MCV (RBC) [Entitic vol] 92.3 fL Normal 83.5-101 [facility] Comment on above: Performed By: #### C BC, BMP #### [address] Mean Corpuscular HGB Conc 34.4 g/dL Normal 32.5-35.6 [facility] Comment on above: Performed By: #### C BC, BMP #### [address] Monocytes (Bld) [#/Vol] 1.0 10*3/uL High 0.0-0.8 [facility] Comment on above: Performed By: #### C BC, BMP #### [address] Monocytes/100 WBC (Bld) 10.1 % Normal . [facility] Comment on above: Performed By: #### C BC, BMP #### [address] Neutrophils (Bld) [#/Vol] 5.2 10*3/uL Normal 1.8-7.7 [facility] Comment on above: Performed By: #### C BC, BMP #### [address] Neutrophils/100 WBC (Bld) 50.7 % Normal . [facility] Comment on above: Performed By: #### C BC, BMP #### [address] NRBC% 0.1 /100{WBC} Normal 0-0.5 [facility] Comment on above: Performed By: #### C MICHELLE, BMP #### [address] Platelet mean volume (Bld) [Entitic vol] 7.8 fL Normal 6.6-10.1 [facility] Comment on above: Performed By: #### C MICHELLE, BMP #### [address] Platelets (Bld) [#/Vol] 268 10*3/uL Normal 150-450 [facility] Comment on above: Performed By: #### C MICHELLE, BMP #### [address] RBC (Bld) [#/Vol] 4.46 10*6/uL Normal 3.90-5.60 [facility] Comment on above: Performed By: #### C MICHELLE, BMP #### [address] WBC (Bld) [#/Vol] 10.3 10*3/uL Normal 4.1-10.5 [facility] Comment on above: Performed By: #### C MICHELLE, BMP #### [address] Creatinine and Glomerular fi ltration rate.predicted panel (S/P/Bld)Ordered By: Josué Evangelista on 01-13-2023 Creatinine [Mass/Vol] 0.98 mg/dL 0.64-1.27 [facility] ECG 12 lead ECGon 01-13-2023 ECG 12 lead ECG [facility] [place] [address] [place] [address] Electrocardiograph Report Signed Patient: Rosa Eastman MR#: [id number] : 1965 Acct:[id number] Age/Sex: 57 / M ADM Date: 01/13/23 Loc: Room: Type: [facility] CLI Attending Dr: Josué Evangelista MD Ordering Provider: [...] on 01-13-2023 Glucose [Mass/Vol] 82 mg/dL 70-100 [facility] Comment on above: ADA recommended refe rence [...] 01-13-2023 MCHC (RBC) [Mass/Vol] 34.4 g/dL 32.5-35.6 [facility] MCV Auto (RBC) [Entitic vol] Ordered By: Josué Evangelista on 01-13-2023 MCV (RBC) [Entitic vol] 92.3 fL 83.5-101 [facility] Monocytes Auto (Bld) [#/Vol] Ordered By: Josué Evangelista on 01-13-2023 Monocytes (Bld) [#/Vol] 1.0 10*3/uL 0.0-0.8 [facility] Monocytes/100 WBC Auto (Bld) Ordered By: Josué Evangelista on 01-13-2023 Monocytes/100 WBC (Bld) 10.1 % . [facility] Neutrophils Auto (Bld) [#/Vo l]Ordered By: [...] in Blood by Automated countOrdered By: Josué vEangelista on 01-13-2023 Nucleated RBC Auto Ql (Bld) [...] on 01-13-2023 Potassium [Moles/Vol] 3.7 mmol/L 3.5-5.1 [facility] RBC Auto (Bld) [#/Vol]Ordere d By: Josué Evangelista on 01-13-2023 RBC (Bld) [#/Vol] 4.46 10*6/uL 3.90-5.60 [facility] Serum or plasma anion gap de terminationOrdered By: Josué Evangelista on 01-13-2023 Anion gap [Moles/Vol] 9.8 mmol/L 6.0-15.0 [facility] Sodium [Moles/volume] in Ser um or PlasmaOrdered By: Josué Evangelista on 01-13-2023 Sodium [Moles/Vol] 136 mmol/L 136-146 [facility] Urea nitrogen [Mass/volume] in Serum or PlasmaOrdered By: Josué Evangelista on 01-13-2023 Urea nitrogen [Mass/Vol] 11 mg/dL 9- [facility] WBC Auto (Bld) [#/Vol]Ordere d By: Josué Evangelista on 01-13-2023 WBC (Bld) [#/Vol] 10.3 10*3/uL 4.1-10.5 [facility] XR cerv spine AP/LAT/FLX/EXT on 12-06-2022 XR cerv spine AP/LAT/FLX/EXT [facility] [place] [address] XRay Report Signed Patient: Rosa Eastman MR#: [id number] : 1965 Acct:[id number] Age/Sex: 57 / M ADM Date: 12/06/22 Loc: XD Room: Type: [facility] Attending Dr: Josué Evangelista MD Copies [...] Erasmo Maddox M.D.12/06/2022 2:26 PM Dictation Location: [facility]--12 Transcribed By: [facility] 12/06/221425 Dictated By: Erasmo Maddox DO 12/06/221421 Signed By: 12/06/221425 [facility] CBC AUTO DIFFon 08-10-2022 BASO # 0.2 103/ul Critically high 0.0-0.1 [facility] Comment on above: Performed By: #### C BC #### [facility] [address] [address] [address] Mars Sanders Basophils/100 WBC (Bld) 2.0 % Normal 0.2-2.0 [facility] Comment on above: Performed By: #### C BC #### [facility] [address] [place] [address] Dr. Mars Sanders EO # 0.5 103/ul Normal 0.0-0.7 [facility] Comment on above: Performed By: #### C BC #### [facility] [address] [address] [address] Mars Sanders Eosinophils/100 WBC (Bld) 5.7 % Normal 0.9-7.0 [facility] Comment on above: Performed By: #### C BC #### [facility] [address] [place] [address] Dr. Mars Sanders Erythrocyte distribution width (RBC) [Ratio] 12.4 % Normal 11.0-15.0 [facility] Comment on above: Performed By: #### C BC #### [facility] [address] [place] [address] Dr. Mars Sanders Hematocrit (Bld) [Volume fraction] 41.8 % Critically low 42.0-54.0 [facility] Comment on above: Performed By: #### C BC #### [facility] [address] [place] [address] Dr. Mars Sanders Hemoglobin (Bld) [Mass/Vol] 14.0 g/dL Normal 14.0-18.0 [facility] Comment on above: Performed By: #### C BC #### [facility] [address] [place] [address] Dr. Mars Sanders IG # 0.02 10e3/ul Normal 0.00-0.03 [facility] Comment on above: Performed By: #### C BC #### [facility] [address] [place] [address] Dr. Mars Sanders IG % 0.2 % Normal 0.0-0.5 [facility] Comment on above: Performed By: #### C BC #### [facility] [address] [place] [address] Dr. Mars Sanders LYMPH # 3.1 103/ul Normal 1.2-3.8 [facility] Comment on above: Performed By: #### C BC #### [facility] [address] [place] [address] Dr. Mars Sanders Lymphocytes/100 WBC (Bld) 36.3 % Normal 20.5-60.0 [facility] Comment on above: Performed By: #### C BC #### [facility] [address] [place] [address] Dr. Mars Sanders MANUAL DIFF REQ NO Normal [facility] Comment on above: Performed By: #### C BC #### [facility] [address] [place] [address] Dr. Mars Sanders MCH (RBC) [Entitic mass] 31.4 pg Normal 25.9-34.0 [facility] Comment on above: Performed By: #### C BC #### [facility] [address] [place] [address] Dr. Mars Sanders MCHC (RBC) [Mass/Vol] 33.5 g/dL Normal 29.9-35.2 [facility] Comment on above: Performed By: #### C BC #### [facility] [address] [place] [address] Dr. Mars Sanders MCV (RBC) [Entitic vol] 93.7 fL Normal 80.0-94.0 [facility] Comment on above: Performed By: #### C BC #### [facility] [address] [place] [address] Dr. Mars Sanders MONO # 0.8 103/ul Normal 0.3-0.8 [facility] Comment on above: Performed By: #### C BC #### [facility] [address] [place] [address] Dr. Mars Sanders Monocytes/100 WBC (Bld) 10.0 % Normal 1.7-12.0 [facility] Comment on above: Performed By: #### C BC #### [facility] [address] [place] [address] Dr. Mars Sanders NEUT # 3.9 103/ul Normal 1.4-6.5 [facility] Comment on above: Performed By: #### C BC #### [facility] [address] [place] [address] Dr. Mars Sanders Neutrophils/100 WBC (Bld) 45.8 % Normal 43.0-75.0 [facility] Comment on above: Performed By: #### C BC #### [facility] [address] [place] [address] Dr. Mars Sanders Platelet mean volume (Bld) [Entitic vol] 9.4 fL Critically low 9.5-13.5 [facility] Comment on above: Performed By: #### C BC #### [facility] [address] [place] [address] Dr. Mars Sanders PLT 251 103/ul Normal 150-450 [facility] Comment on above: Performed By: #### C BC #### [facility] [address] [place] [address] Dr. Mars Sanders RBC 4.46 106/ul Critically low 4.70-6.10 [facility] Comment on above: Performed By: #### C BC #### [facility] [address] [place] [address] Dr. Mars Sanders WBC 8.4 103/ul Normal 4.0-11.0 [facility] Comment on above: Performed By: #### C BC #### [facility] [address] [place] [address] Dr. Mars Sanders D-DIMERon 08-10-2022 D-DIMER 0.35 mg/L FEU Normal <=0.59 [facility] Comment on above: Performed By: #### D DIM #### [facility] [address] [place] [address] Dr. Mars Sanders D-DIMER COMMENTS SEE BELOW Normal [facility] Comment on above: Result Comment: Incr eases [...] hospitalization. Performed By: #### D DIM #### [facility] [address] [place] [address] Dr. Mars Sanders PROF 14(COMP METB)on 022 Albumin [Mass/Vol] 3.8 g/dL Normal 3.4-5.0 [facility] Comment on above: Performed By: #### H MIKEYPN, CMP #### [facility] [address] [place] [address] Dr. Mars Sanders Albumin/Globulin [Mass ratio] 1.0 {ratio} Normal [facility] Comment on above: Performed By: #### H MIKEYPN, CMP #### [facility] [address] [place] [address] Dr. Mars Sanders ALP [Catalytic activity/Vol] 127 U/L Critically high 46-116 [facility] Comment on above: Performed By: #### H STROPN, CMP #### [facility] [address] [place] [address] Dr. Mars Sanders ALT [Catalytic activity/Vol] 30 U/L Normal 16-63 [facility] Comment on above: Performed By: #### H STROPN, CMP #### [facility] [address] [place] [address] Dr. Mars Sanders Anion gap [Moles/Vol] 13.5 mmol/L Normal [facility] Comment on above: Performed By: #### H STROPN, CMP #### [facility] [address] [address] [address] Mars Sanders AST [Catalytic activity/Vol] 20 U/L Normal 15-37 [facility] Comment on above: Performed By: #### H STROPN, CMP #### [facility] [address] [address] [address] Mars Sanders Bilirubin [Mass/Vol] 0.3 mg/dL Normal 0.2-1.0 [facility] Comment on above: Performed By: #### H STROPN, CMP #### [facility] [address] [address] [address] Mars Sanders Calcium [Mass/Vol] 8.7 mg/dL Normal 8.5-10.1 [facility] Comment on above: Performed By: #### H STROPN, CMP #### [facility] [address] [place] [address] Dr. Mars Sanders Chloride [Moles/Vol] 105 mmol/L Normal 98-107 [facility] Comment on above: Performed By: #### H STROPN, CMP #### [facility] [address] [address] [address] Mars Sanders CO2 [Moles/Vol] 25.4 mmol/L Normal 21.0-32.0 [facility] Comment on above: Performed By: #### H STROPN, CMP #### [facility] [address] [address] [address] Mars Sanders Creatinine [Mass/Vol] 0.98 mg/dL Normal 0.70-1.30 [facility] Comment on above: Performed By: #### H STROPN, CMP #### [facility] [address] [address] [address] Mars Sanders EGFR-AF BENINESE >60 Normal >=60 [facility] Comment on above: Performed By: #### H STROPN, CMP #### [facility] [address] [place] [address] Dr. Mars Sanders EGFR-NON AF BENINESE >60 Normal >=60 [facility] Comment on above: Performed By: #### H STROPN, CMP #### [facility] [address] [address] [address] Mars Sanders Globulin (S) [Mass/Vol] 3.9 g/dL Normal [facility] Comment on above: Performed By: #### H STROPN, CMP #### [facility] [address] [address] [address] Mars Sanders Glucose [Mass/Vol] 102 mg/dL Normal 74-106 [facility] Comment on above: Performed By: #### H STROPN, CMP #### [facility] [address] [address] [address] Mars Sanders Potassium [Moles/Vol] 3.9 mmol/L Normal 3.5-5.1 [facility] Comment on above: Performed By: #### H STROPN, CMP #### [facility] [address] [place] [address] Dr. Mars Sanders Protein [Mass/Vol] 7.7 g/dL Normal 6.4-8.2 [facility] Comment on above: Performed By: #### H STROPN, CMP #### [facility] [address] [address] [address] Mars Sanders Sodium [Moles/Vol] 140 mmol/L Normal 136-145 [facility] Comment on above: Performed By: #### H STROPN, CMP #### [facility] [address] [address] [address] Mars Sanders Urea nitrogen [Mass/Vol] 14.0 mg/dL Normal 7.0-18.0 [facility] Comment on above: Performed By: #### H STROPN, CMP #### [facility] [address] [address] [address] Mars Sanders Urea nitrogen/Creatinine [Mass ratio] 14.3 mg/mg Normal [facility] Comment on above: Performed By: #### H STROPN, CMP #### [facility] [address] [place] [address] Dr. Mars Sanders PROTIMEon 08-10-2022 INR Coag (PPP) [Relative time] 0.95 {INR} Normal [facility] Comment on above: Performed By: #### P T, PTT #### [facility] [address] [place] [address] Dr. Mras Sanders INR GUIDELINES SEE BELOW Normal [facility] Comment on above: Result Comment: EDU RED INR: 2.0 - 3.0 CONDITIONS NOT LISTED BELOW 2.5 - 3.5 FOR PROSTHETIC HEART VALVE REPLACEMENT 2.5 - 3.5 RECURRENT THROMBOSIS Performed By: #### P T, PTT #### [facility] [address] [address] [address] Mars Sanders PT Coag (PPP) [Time] 10.3 s Normal 9.0-11.6 [facility] Comment on above: Performed By: #### P T, PTT #### [facility] [address] [address] [address] Mars Sanders PTTon 08-10-2022 aPTT Coag (Bld) [Time] 29.9 s Normal 22.3-36.[address] [facility] Comment on above: Performed By: #### P T, PTT #### [facility] [address] [place] [address] Dr. Mars Sanders TROPONIN, HIGH SENSITIVITYon 08-10-2022 HSTROP 12.3 pg/mL Normal 4.0-76.1 [facility] Comment on above: Result Comment: CUT- OFF POINTS HAVE BEEN ESTABLISHED BASED ON THE FOURTH UNIVERSAL DEFINITIONS OF MYOCARDIAL INFARCTION. THE UPPER REFERENCE LIMIT (URL) OF TROPONIN, DEFINED THE 99TH PERCENTILE OF cTnI DISTRIBUTION IN A REFERENCE POPULATION, HAS BEEN CONFIRMED THE DECISION THRESHOLD FOR [place] DIAGNOSIS. Performed By: #### H STROPN, CMP #### [facility] [address] [place] [address] Dr. Mars Sanders XR CHEST 1 Von [...] by: JONN HARGROVE Date: 2022-08-10 18:59 Normal [facility] MR head/brain wo conon 07-08 MR head/brain wo con [facility] [place] [address] [place] [address] MRI Report Signed Patient: Rosa Eastman MR#: [id number] : [id number] Acct:[id number] Age/Sex: 57 / M ADM Date: 07/08/22 [facility]: [facility] Room: Type: [facility] Attending Dr: Candida Alexander PA-C Copies [...] Rob Funez M.D.07/08/2022 1:37 PM Dictation Location: [place] [address] Transcribed By: JERMAINE 07/08/22 9621 Dictated By: Rob Funez II, MD 07/08/22 1334 Signed By: 07/08/22 1337 Normal [facility] Folate [Mass/volume] in Seru m or PlasmaOrdered By: Candida Alexander on 06-21-2022 Folate [Mass/Vol] 7.4 ng/mL >5.9 [facility] Comment on above: Folate reference ran ge: >5.9 ng/ml The WHO technical consultation on folate and vitamin b12 deficiencies has determined that folate concentrations less than 4 ng/ml are considered deficient. Free T4 (Free Thyroxine)on 0 06-21-2022 Free T4 [Mass/Vol] 0.77 ng/dL Normal 0.61-1.12 [facility] Comment on above: Performed By: #### V [id number], T4F, TSH3 #### [facility] [address] [place] [address] #### METH #### [facility] , Laboratory - Chemistry and C hemistry - challengeOrdered By: Candida Alexander on 06-21-2022 Cobalamin (Vitamin B12) [Mass/Vol] 369 pg/mL 180-914 [facility] Methylmalonic Acidon 022 Methylmalonic Acid 241 Normal 0-378 [facility] Comment on above: Result Comment: This test was developed and its performance characteristics determined [facility] It has not been cleared or approved by the Food and Drug Administration. Performed at: [address] [id number] Physical Therapy Aide: Millicent Calderon MD, Phone: [phone] PERFORMED BY: [place] [address] PATHOLOGIST MAPPING TECHNICIAN GENEVIEVE CANNON M.D. Performed By: #### V [id number], T4F, TSH3 #### [facility] [address] [place] [address] #### METH #### [facility] , Serum or plasma methylmalona te measurement (moles/volume)Ordered By: Candida Alexander on 06-21-2022 Methylmalonate [Moles/Vol] 241 nmol/L 0-378 [facility] Comment on above: This test was develo ped and its performance characteristics determined by [facility]. It has not been cleared or approved by the Food and Drug Administration. Performed at: [address] [id number] Physical Therapy Aide: Millicent Calderon MD, Phone: [phone] TSH DL <= 0.005 mIU/L QnOrde red By: Candida Alexander on 06-21-2022 TSH Qn 2.46 m[IU]/L 0.45-5.33 [facility] Thyroid Stimulating Hormoneo n 06-21-2022 TSH Qn 2.46 m[IU]/L Normal 0.45-5.33 [facility] Comment on above: Result Comment: PERF ORMED BY: [facility] [address] [facility] [place] [address] PATHOLOGIST MAPPING TECHNICIAN GENEVIEVE CANNON M.D. Performed By: #### V [id number], T4F, TSH3 #### [facility] [address] [place] [address] #### METH #### [facility] , Thyroxine (T4) free [Mass/vo lume] in Serum or PlasmaOrdered By: Candida Alexander on 06-21-2022 Free T4 [Mass/Vol] 0.77 ng/dL 0.61-1.12 [facility] Vit. B12/Folate Profileon Cobalamin (Vitamin B12) [Mass/Vol] 369 pg/mL Normal 180-914 [facility] Comment on above: Performed By: #### V [id number], T4F, TSH3 #### [facility] [address] [place] [address] [place] #### METH #### [facility] , Folate 7.4 ng/mL Normal >5.9 [facility] Comment on above: Result Comment: Rosa M te reference range: >5.9 ng/ml The WHO technical consultation on folate and vitamin b12 deficiencies has determined that folate concentrations less than 4 ng/ml are considered deficient. Performed By: #### V [id number], T4F, TSH3 #### [address] #### METH #### [id number] , Coding Summaryon 02-13-2022 Coding Summary HTMLBase 64 DtyvtktcULn4mDr+PGhl YWQ+KM8GLCRmO13rpIJa gS7OP3vIAD9TZABDHSTX WT8WFD5pmUO4KYbzQ4Fm biAv KrcxbNKwFG85FRj4VCJ6 wKujTIshtL7odCLjZ9g1 HzVqEK40zM67ODkhMDOy QhF2EqCciqupkUFn I1lzUdNffMAbClu+PHRh YmxlIHdpZHRoPScxMDAl NmEcqKifDI4tQw3zUIYw LWNvbGxhcHNlOiBj u2ezDSEzWIoqMZ6atBoa R3YrpMY1FNViq8h1Qx89 dHI+UUToMEV7eLiqKLva t689BnMlj4ooFNH9 zVRzXQtaVGW0P88fh5B4 MUIvSNSbFUG0hWE8kF2v zKfaivhdH3CszTLjEyZ9 XDB5sGWqcE5bnLkm njphsS2xDxp+R36XNJ1W PGWUTW0CRgv3U6FrZfcm dHI+SE29LUBxJY60yTCe mTLrf7mfdPx3UvRh UPMdHAH6dPkyPGsil4Zq ZGHuM98jnYUxr9C3BSEq cAlssWZtDhBvqCG6oY4n OQsnfghiv6fwrhya Sikpa5hkyj39nL87Y71w WNtoLLZmVDI3QJCwLKJy jVdtdu1ifT9yLd8+IDxj z5wow5bguEc9KbTv EXUcsrIjpNizISM6n7Qk Yg50F0GdwBvoq9YtAhs7 yn31vNZuo7U2jRC3FKka BITlgJ0cPTcqOeP9 CPYhVvDisM18wBFeXTgr Vf4giEdziOlzJY7sNRRl jxyqLULvrT1nITHlfCSw rKawPE7gJYWanazk q307JjLbVRF4ELVkuPWy M0SjkX5zSuBgGPFxKJQn F6ZycOAyRKyiC841SPey TeR2ZDRewyCkQ1Nw GTKeoVtiVaF6f8H8Df2T x9TuxhwmDZO9LCdfSET0 LfR0EfWlRmP7K5SnSld6 DEIgfZiyTR0bF2Zq WZXumfzhiwmnrFS3SYWs VFYrrK27aORuEKjwOe3k h5E5p193VUVoRGWseM06 Re8ivAcbZHNvlNBC cO1aqvjok9wstowpCiBj UHFyOJv6JFs0BVGxeZmv SrOmNGN2UcF5PXS3mWSj iU1tiLlrdmfjeE1z Oyc+A30cmK8eQNX6RNT0 ybxrKXIshhKeIJ23IA65 X5UpCcnhzVBjxWV+PGRp qoYkyWsvZW9fUkMa x4ger5AyRYfkH5IzAXWu ERwkOsc4VUIpNXZ6iZM8 gE8vQVNeXHqex1L1lAD6 Y8ZyueWxyf2cr5qk QLLbMLhyQ01foCNqz9H9 KLBumGV2TULcdZolWcEs lB66Mxo+KANatWpze9Vj Vttzo0zhc3mkhYz2 IjMwJSIgdmFsaWduPSJ0 l8SyUu86A74tOVzkSGKv SBFxNJXmGVXpyArumw7h jH7nUi3+PGNvbCB3 nZN4dM8wNPIsMzV9LPor Y770TdYhfZFnXossk9ed a3ikqBv4KwJdHAXsifKt aOhbYKI4x6BmRf62 F24bFHltFXGcKSAkHNEw FUQldKfsax7neH5nTb2+ NR7yl8czvh11eB62fIK+ QNKuOEE6kGpcITas SGZmbS0eTQneBhB1SBBf IwAtuT26zKCsVZhxVm2p cDxcgTavEE8qUARuykco l200RcUbv8vdBTQl xYWvIIypOMU3H49oj2R1 VIYdKXLnYBT4cZB8hZ1u bGlnbjogbGVmdDsgdmVy lWmxORyaYYnmT222 IHRvcDsnPlBhdGllbnQg HkEfVSq7V4YcNmt2IHQu pMpoCZ6abYXzGIpqPr6x nSrryOoyZN6kNXRu xdmoa790FvThm1fbYCQy xIFzZYqqFID0H53ab6O3 PTJhHXUaOVY1wEN1iH0w bGlnbjogbGVmdDsg wrZoaCqiCUlgCNpqQ094 IHRvcDsnPkJpcnRoIERh yZW2EW28RU33dZHuf6R4 dYC7L5XfRWCdploy bijkaXQ5PWRpAICxgM26 Ts1feNtzGl2sKYKlUNS5 YSYeqKFaK8FtgO4jAxVt BSZhPHZuJ4MpaJGb MFhjT856VNdsVgX9SAQn erXaG9LsVYMqgMzjWsO1 n5V7Qn8YM4I8PA42FT98 mHGdr8A9hYE2R2Tg ZFAxwgjtzffqkDT3XLDo BRBjoG12Ds6twTtcJc4z HGEsWQZ0IKAkwKGsP4Ky oL6yKoZwYJHjLBUk J4LrlCGnNManE286OXxs HcS1YYXkakSkH2RnFHMb gPqzPdR8k0Q5Ts4UJEp4 ET79XU57gZMze9F6 vTM9E0RlDZHycdlgfewv yTW2XFGuEFFirU46Hq4h fYhuFf9gIVWwKFP0UHFx eWLiK4OdpN8tDuDw VFRzXJBfY9JjgVQvQUld M555RJasWeE4GOHblfFz R2HaWXUmySdbPaT5v3F0 Am9QSZTqSH49QRO3 rFO0RV47AA40X4MpDfsv dGFibGU+PHRhYmxlIHdp ZHRoPScxMDAlJyBzdHls SJ8iBb4qTNWiWILz sCevwHCkXuQpl7lbHSBk CBlhVJ5bsBokQ0ChzTB5 SDPko1u3Xi87Q95oM1Io dXA+WNApvLF1dGF4 nH7gPqChPdJ8FBfeA431 ZvLhsNFwKheqp3twf9ow mYc0MiU9QUXozgUomFrh OXA7w7VyZz34C11h IHdpZHRoPSIxNSUiIHZh zFrfki9npX0iNr9+PGNv qCW2aZO6aQ7fNbAaRaI0 JBapH704YxBzlHJo Jqido5jag9ltyVy1TnSk JLGridUzyOxpYPQ9p4Xv Jv08H2AwzHxtq3DjQkf6 iu28qXKsm1Q9pUI7 E8HxDUSmdkeftTUloWyh KK3jAWEscigyBZXsfU4t ALRaD7g1YeYkBoS3GScz P6EsoqZ7IESgkFBu PLgzLPH4L74mn4R6TRRv NYMbIQN3sJG9kP1czIut bjogbGVmdDsgdmVydGlj ZGpiLAleB371OLEq jTruYGBxhR1yBQFgkUSc rJslCT1uHUIzlotkQgDL C2IWX15ZRIMMC4HEDgLf EVdGBB38S4PwLat1 EDFhiKikIL3crNCuCYqh Ey1dnOvvbIubGR8nKZJh srfoHEHheY1bTUXcxEKf xDwwHT7bVUPosyen c937KxWaLEG7HBKqxQTo I8XjgM0qQjQhJDUwEICe Y3WioKHvQAtgR425IEir AzE6NRFchkRrH5Pd JQBerVpiCiT0o1V5Wm2r VW0lWs5lCAQ4NF40EL35 vMDja1L6tVN8U0JeVLKl iluwoshyrXE5KYRo GZQdoV53kELcTZgzSn3n p0C9s073RHSnSGMslV28 Wo5fkKluQIJkzALLzW4c amtep5ooyvfzScCr EBKuCYj5APa4GTWgaQrg WlCcHXT0UvM6IJE4dQPt gI0qgUmpqighkR4ePzo+ XYIxMLCnlmR2D5Vz Znc8IEXbePcsPC0iuLXe KRbdFg1zwYmsuFqeOY2d CYBmtajuPQXkjR1aPQMu kEViuUdcFS2gPPYv dtqqo300FvLrVMF8NDJj tGGdR3RepE6rGaWoHILg NNYyN1JdbCYyFWbeC865 MBicZuO1HDHdcuGl M3UkUOUbiStsUfK5o3J0 Xx6YPOhHLH11CO19fOYg w6V7zTV2I6WtPVTxlskp rvbygYK2JTHwLLRu oS56mBAzUGwwAj6oi0E6 e612ENTvXESgvG99Ya7g jSdrTDWvuQMDdI8lisky f5feumdrRdAyUNBg VOe0CXy4VNFjyLzvEqYs IFY9ItX5KIA3uUKvfX5a wYcowuqzcN6uUqi+RW1l rlxkvzS8JU34IJ18 W8UdHgtslVYxyXV+PHRh YmxlIHdpZHRoPScxMDAl AqUkaNsnUY5fKv6uVGAn LWNvbGxhcHNlOiBj a1ijEAFhOIkdWZ0vzWxq W7HbaNR1QYFwu1n1Pv23 G89cO7HoiBP+PGNvbCB3 hMY8iX6xYcPyQzC1 DNrvL096SrVazCSiYcog m2vty3ezcDk3FiUuSWMx tpPejNumSJZ6l4ZgKu77 E84mVUbjSYFuMZRh BCVcGJGlfJnyvg9mnO6k Ii8+FBAguKU1mYG3kY0k GjLfVpI7PVulK251OhLu xQSvNvddT29fQ6Mb dXA+VIKgCxq1ZLWajFbm MF3egJNdLWebWb1aXZB6 KpAlYcHlGUhfR2TiRCFg imhvtqaqaCX9SGKm XFAwhJ34Yl9mlVbbOe2i VLKoZWL6XFSllSRsW6Co aQ9sTtQzPNXkVTTeL6Fj aNSkVOoqA587KPqg GlS3KCEgblTxC8KrUTNk aIzlWtD9h1U9Kk6RkIom bRAoGN8uZvYuMRn7W9Is Qdu5HEZjyOqzRR5a sREdZNbgXl1lcNjpsUhu MP9zMETuudwyc198VuDd p3coOLGxrBYjHYbvDER9 B53lt8Q1BEDwPTSd IRD3sNR4qQ1sdOmtwfkn bGVmdDsgdmVydGljYWwt JBamA194OANrfLgkSsJD Lpg4N6BpRuo1MQYv kYgdQD5toDLzUEsaRi9f xTbksDjkXK2pRZFtjnko s991NsZce4ysEWXmyXVr EYfcSXN9I12oa4B7 AXYjBPSgYWF7hOP3qQ1u bGlnbjogbGVmdDsgdmVy oOkuGKbpMNeqS299TXYv rManBk0GKew9L7Mp Hmw7DLMmrGwuVR1kmABw QGpjOl2tfOyvkPvhPN1a TXRjinbfm236YnVqe1vk IDEwcHQgVGltZXM7 W04eg7D3QIFaFYDvFDU2 bRH5vN5lmVeqebaecOZo dDsgdmVydGljYWwtYWxp V131TKFvyGwiQsWq eWVyOjwvdGQ+IQ99kp93 U0KqHomaXgh6PJFdVNE5 vBI9eV2uZEZiWZdpx4K9 bJF9Y4ZxtrImmq8x b2x (more content not included)... [facility] Coding Summary HTMLBase 64 NeunlwcsEIy2yJu+PGhl YWQ+KE6DINYtR55ysEYc eR2QY8fNBW4IYILAOWDE RJ1HOU6gmYF1LEneQ7Fd biAv IrgqdPVgMV62TXb7UEF5 sMgbGOlaxJ9hkDEwF0y1 PgReYH01cU55QZbbIHHr NiP3UkAqblibbFKv B9mvVoEhgKHuIlw+PHRh YmxlIHdpZHRoPScxMDAl OyEccTjaEX1wRl8kEQMw LWNvbGxhcHNlOiBj s0huQUErDIkgBR1pwFsr V2IxmNB7PXOmc4t7Ek77 dHI+PRIiIXE7cMetWLhp w286DlWqx4mzOTZ3 gHRwUHpqWRD5H53oo0E6 OJKaDHLuPGA5tQE3jY4j hIibdvrhR2UysOVlNyO7 WMS5kATiiW7idXmd gwmslI6kYcu+K37DOA6P KGMQCC9KPhi7M9DgMagk dHI+JC24CPWiZE14hFHs qUFxa0lupHk1KhZp ILIhCJU4oFxgBSgxe4Zx KACpH97xpCEwt9Q9DMLp kJzvuCSlNqNnsOO3lT4w AMuaqtegu6rlrnhi Swuhr1jrhq42fC68Z15n VQnlUDVvWKC7LRDbMTHv lRcqtu4yrJ8sYb2+IDxj g3jpl3htfPq3BaOv XOIeclTxwYwjKLV2o9Qa Gl90Z7FonFrqs0RiPvh3 bv91zILge4Y9vKT8JJtp DFOcvV7wUWvrMvL2 TQBeHdDpnR05yMDqFJzt Al6saWyzhJpgRR8nCSAd splnLQYedF2pOMQxlITo yIvoSL4hGVGspbmp b844BiCyQBO7KFZyqMUp S2BlvJ2xUtVnPTDlFFTr F8YihSHfLVgzY520YKai TpZ6OZRbbcQvB3Tk MXBloVuaVhP3n2G2Bw1W g2HsfgkxQUR1IWlwKPQ9 RcC2IzQgXnY3S4VqTsx3 YAGsyPftRO1yV9Gz WXMzmgwwsatlzOT8FBIi FDCapE44pKNvHHinXb9t x3H5j743EGLyHUZjtW87 Ai7enKqwVKXuoDGM oS6lmkbcg3pwvxpmBlZg RJRzFMa9CHd7AZEehKng OoObDBN2DjB3PHV1nONl vG3fnLrqymtlaD2n Oyc+P47bwD1zALR1QIE4 qlltNYDhasToUU30RL42 A5IvPhbgxAHrkUT+PGRp faJtxWeyFU2fDmSg z0ezv4EaVOefA4KlRQLh WWpjVmd1XJMgBZX3zJN8 cC3eEWAlBRmgn1P9eIX4 S3SisnUvyq2yq3zy ZCKtMPelJ75vsLQsg0C7 EIWoeIL4TQXazLrsYuZz tE24Ste+YYRozJisc3Rk Iaufi7obo3jeeKc5 IjMwJSIgdmFsaWduPSJ0 a4FmMy60J19sNTyfNTQm GBIfFUMzQBApiCwntc8z kT4sUg3+PGNvbCB3 dDL7dX4gYSNrCmK9JUrf Q310ZuDsrCPbDsrcy7ov o2gvjFq1KpPaZFHgixYm jOvgMCT1e3EjOh90 H45xMQlsHRPbDCDmOVGs UQZlzAtprj0eeG0oUr4+ KZ5bx4glqf23iL89tOL+ GKYjRJM7kCvdFRum TKQscY8vOQlhDeF0KHQc QjWibU97zFRhSVhyCs9l jGbqfJvjGP1hXFBawdvg s128AlJoo0jdMAIn hEAgSIpdRYF7T86jq8Q6 QJOnXMHpUWD2dGO7lB0u bGlnbjogbGVmdDsgdmVy eUdkDVvtCXgeB361 IHRvcDsnPlBhdGllbnQg LiZrOVg5K5LpAng9QEVh sRgpEO9biFQcGYsaZp9a iUiatGcaNW7iZUEa fghsu442UmMju7tzTGOz qZLqFJhaKSN9W52ba6Y6 RDWmARYhZTS0uIQ0aT4s bGlnbjogbGVmdDsg twQnuThyOCbdPFdcG051 IHRvcDsnPkJpcnRoIERh uOC8YG16OZ14rBTdx0Z9 xQZ3L7HxLTUvbyou whopnUF5LJYkXCApwV26 Kw7bmBylVe0lLNStNJU6 SLLwzRExY6ZprP4iMvUn XWVjRUXhX8AtwSRw GTypB922XOjxPtM1ZAGf rdMkE6SkEWXvlQhpVnS9 i5X1Ti7GK6J4BU08LX99 dHYon3T3mKP6X0Ty KRWcgxtkikuaeTG8MEXh ANNfoK38Np0qqIjlFf9n MYEvGJB3FRTzcCCwM3Ds tM8oUcKxUHUrYHGz A9IiyUGyWNzaT194MHhu OzP3CXVboyBzL2SvKZEh fFrjMlA2o1W0Hl4RBIt1 RW77JX01sKGng8Z2 lOR7V9ZrQPJettnmpigp pJG7XEPdSYOswI23Cv6z bYraOb3mYQQbYEB4PGFo wZTnM1OwgA5yCtLa VGTsLCCoN7CllFCiYIgp B452JXhwMrU3MFGhbyXh K8YdILGucXtgGgI2p3B2 Jj4XVNMdHI93VVH4 mUJ1OK17ZU74S0MxUcgr dGFibGU+PHRhYmxlIHdp ZHRoPScxMDAlJyBzdHls DL4pFv7tAWZcFWDg fKmsgUOlRhMkh0knAWAh VMbmBD1vyRagD8XbzXG2 HAIcg0x8Oo27P27kQ7Am dXA+QTMxxZI0qOG5 kL6cQqQeIoQ9ZGkoS849 OuGovTQsKjeki7gsg8qu vTl2XkI4DPWpouIekSyl EUG3w1MoUc68L21m IHdpZHRoPSIxNSUiIHZh iJokgi6xjS5mCh4+PGNv vVO8sTG2jN8vRoVxGsQ4 UZlqK876YpIayFOc Tzxgk8agg8efeMf6JeIp FJFghnKoeAumXAP5s6Xb Mz66C6JakKqiq9OlSee1 nh10pCTgd1G2bRF1 Q3KhYGTizqlxvFRqqQvz ES4gVFVbxrobJCMlyP8k OFMjY1e4IlYnRnL7EUsp Z1WqjfA4OPWeiBHi GEbiYMQ7R48kg6V8GQCi HIXkXJR0lEM9yU3jbGab bjogbGVmdDsgdmVydGlj JRajREttT957TKAx lSumEBGliY5gUBThiCJd jPnzWB9rFGQmpovnHaVH S8JSM79JURKWU4BYLuYp SLpYKF32O1ClMir8 GJYjlDeeMC2taQLeXOjy Nz3spEvmdAhnIF9yXIMd eaznCIGlnQ8bWQStfGPf gQcgKQ0eLFRoltwt p832EzNrOKH5MGQijRBk X4ZeuF0mAyUgKRUvHFMr W7KrpMKmRPgcQ769UIji VrA0VRUxuvHsY1Iq NNPccTxeIcH5p4U2Yd2p JH0pHq3kBVF7TG76QL42 uWGvk9W9iEU9D4AbCIAe vtyguiinyNV4DVQj UYPtiC75tFUeVTdhZw7t n7V0e075DVXuEHDjsU81 Ow8vbEziARLemCRXzW8x ehgjx0ubmsmiRdEl KWAfCRq5KQh2RFMpwLkq DdHaIVR2HxK3ORS3mWIn rT4icKfmzqbshM0iRdx+ GRAgIHYvzfC1N4Dr Bou5HRWtlGtlPP4gtKKd MDgdUh4zcKratGtqQQ0f SKZafeykDLCppM2wNAIz gUOjbCtbUW7pPJQw bubpa682RtDbEOA0ZNNq yAHfA6JldA5zYkWsKMOj XBXmF1StnFSmVDraI672 BNgsEhS1IBWgqoGg E1JqGTPvrXnqXgV4h5W4 Ns1QLEdRBH21UD72bHDo t3O6iGM7Y9DzJBTascwv sakinCY4GOZlDTBp yT83sTHuYSeaOa8bt7K9 y897NYKhWXYibN73Hi8j fPpuPCBzsXRKnI1qrvrd y4eltepeVpLwULUv EHw7RBh6QNZmgScqXrWh WJY8CrH2EWY9nMHjvD8q qFxyhbrcrY1rUvx+T1A8 P6TzXybmsZK+PC90 MONmZX82pVOwzWYmn3ha pLp5AhMhCOOhTVS6zQyt WZzbg6IaSGPcR23rpBZw z4Y0CGHytPmfoZRj MeHlwTU2fU8cMGcmfjkr z6hnefidEkicv9qmqh77 xV45H30xWGckXIAwVRJp WNXkZFJzlHqfkv2j aN2tJn9+NAHhqBS0yWF5 xH1sRcZxMaL3ZLztE158 RqRgiZEsSoxvf6ich4xf aFm5PfCgCDIsnzEj rQioDZZ9z7JeFy08Q78k IHdpZHRoPSIyMCUiIHZh hBktmp8kzW1dDb9+PC9j m9etqj36tS10sOS+ XZCfZGN4xJblTUucFKCu nO1fYWmjShE4BARoRsBx vK70bDOgCFneZw6uqVxk fTlpJP7gTYIrhqcu i000ElGoe4quQGNhnWLl LLzwLQF0G24td1Q8NWVg XLViTNW7uPZ3eM2aqYdm bjogbGVmdDsgdmVy qKjaCJsgEVcjZ955MEPa iXpvCxLbwLMqI5ugqsLG ZT6iAsyzoQZ+PHRkIHN0 wAymUQokIBAcxP7o KOMiP0l1NmEvSrE8BUsh C8WajjM2VWKrzUTeZYQh kXAQkN6kxqqzp5aymdtz HwDnFPXsKPq2TAn2 BOErkMheWdEnFZK4GfN2 JVX0jXTmfI1djUgzyaaw eC5zMdp+RklOOjwvdGQ+ ZVNbHVW5vXgpGNve RIMlsY7gBZKzQ6b1UgGm CeP4FBvwA9OntuT5OUXw iJLfIGQrvOQAmF9szxdc q5jafspvIxRyBFOv QHn5GNb3UFZzoWlsAuMx ATQ2HhC5SVH0xQMfeE2b fYwahbndkL1rInq+TVJO OjwvdGQ+PHRkIHN0 rMlkVCmqEZGxwF0gOVRb P6t2YpDoIaV8YXgoS0Pw qnF4LUPeuMBpDITwmHGD fX5dtdgnn4pdubxf AmReOPPjZCd4ORh8UDRu xOhjVnTtTGE2GfF0PYZ3 sXZcsR8xpOdehvwzrU5l Oyc+OUX4RHD6DN67 AO83T2HvQkiqcWSxgWK+ PHRhYmxlIHdpZHRoPScx WJZrYuKsaHeiUL5dHr7s ZGVyLWNvbGxhcHNl OiB (more content not included)... Normal [facility] ED Clinical Summaryon 2021 ED Clinical Summary [facility] - Emergency Department [address] [place], [place] [id number] ED Clinical Summary PERSON INFORMATION Name: ROSA EASTMAN Age: 56 Years Sex: MALE : 1965 MRN: Acct#: Visit Reason: Hand pain-swelling; RT HAND SWELLING/NUMBNESS AND TINGLING Arrival: 02/05/2022 14:13:58 Discharge: 02/05/2022 15:08:00 LOS: 000 00:55 Check In: 02/05/2022 14:13:58 Checkout:02/05/2022 15:08:00 Address: [address] [place] [id number] PCP: Britt Penaloza DO PROVIDER INFORMATION Provider [...] Follow-Up: With: Address: When: Andrew Mckenzie DO [address] [place] [id number] Within 3 to 5 days Comments: Diagnosis [...] for reevaluation. Prescription is electronically sent to [facility]. Return to the emergency department for worsening symptoms or concerns, acute shortness of breath, chest pain, abdominal pain, nausea or vomiting, or any questions. DIAGNOSIS: 1:Cubital tunnel syndrome on right; 2:Paresthesia of hand Patient Understands: Yes - Patient/family/careg iver verbalizes understanding of instructions given Comment: Normal [facility] ED Note-Nursingon 02-05-2022 ED Note-Nursing Pt presents to the ED with right hand numbness and tingling that started Friday. Pt also states swelling, none seen at this time. Pt states a hx of surgery to his right Arm for a pinched nerve 3 years ago. Normal [facility] ED Patient Summaryon 022 ED Patient Summary [facility] - Emergency Department [address] [place] [id number] PATIENT DISCHARGE INSTRUCTIONS Patient Information Name: ROSA EASTMAN Age: 56 Years Date of : 1965 [facility]: [id number] Reason For Visit: Hand pain-swelling; RT HAND SWELLING/NUMBNESS AND TINGLING Arrival Time: 02/05/2022 14:13:58 Primary Care Physician: Britt Penaloza DO Attending Physician: Lennie Wilcox MD Comment: Visit Diagnosis: Diagnoses This Visit Cubital tunnel syndrome on right (G56.21) Hand pain-swelling ([id number]) Paresthesia of hand (R20.2) Prescription Information: If you have been given a prescription for narcotics, seek immediate medical attention if you have any difficulty breathing or any sudden status changes such as confusion and sleepiness. If you or anyone you know is experiencing suicidal thoughts, mental health, alcohol and/or drug addiction problems; contact the [facility] 02/06 Crisis Hotline -Text 4HBCV to 332572. If you received any narcotics, sedation, or [...] sign any legal documents With: Address: When: Magaly Andrew Grande [address] [place] [address] Within 3 to 5 days Comments: Diagnosis [...] for reevaluation. Prescription is electronically sent to [facility]. Return to the emergency department for worsening symptoms or concerns, acute shortness of breath, chest pain, abdominal pain, nausea or vomiting, or any questions. Medication Information: The exam and treatment you received today in the [facility] Emergency Department were for an urgent problem and are not intended as complete care. It is important for you to follow up with a doctor, nurse practitioner, or physician?s social service assistant for ongoing care. If your symptoms [...] so we can reach you if necessary. [facility] Emergency Department has provided you with a complete list of medications post discharge. Please inform your receivables specialist/provider of your visit and for further instruction on these medications. Any specific questions regarding your chronic medications and dosages should be discussed with your primary care physician(s) and/or pharmacist. New Medications [address], [address] [place] [id number], [phone] predniSONE (predniSONE 20 mg oral tablet) 2 tab(s) Oral every day for 5 Days. Refills: 0. Additional medications on your home medication list not specifically addressed. Please contact the ordering physician if you have questions about these medications. acetaminophen-hydroc odone (hydrocodone-acetami nophen 5 mg-325 mg ([place] 5)) 1 tab(s) Oral Every 6 hours as needed as needed for pain. latanoprost ophthalmic (latanoprost 0.005% ophthalmic solution) 1 Drops Ophthalmic once a day (at bedtime). both eyes. Visit Information Allergies: Substance Reaction Symptoms Type Comments Bee Stings Drug penicillins Drug Vi (more content not included)... [facility] Provider Orderson 10-18-2021 Provider Orders [id number] #[id number] [facility] Coding Summaryon 10-15-2021 Coding Summary HTMLBase 64 XzgzemicANq7lWd+PGhl YWQ+LH6KVBIcU25dhJDh sX2QG7jAGY6ULIDDNYFO OL6VOU9xcHX2JThiS2Kd biAv YnrnkSMhZB08FDc2LKV7 kYldPLiuvN9lfSEiI8t3 AdSnWS85nJ13HRcaZBXm GsD4CmEjvwbsiAZa A9fuKzIqgEBqFmx+PHRh YmxlIHdpZHRoPScxMDAl QtNfzYmxIT6lMz4mATEt LWNvbGxhcHNlOiBj e6toYSJvVRjxYB1dxOhg M1MckEK6NEZws7w9Rc05 dHI+KRTaCBK3tPvnYAuo c221MiDmb3neRSH3 mIFiFDqmPPV9J87sp8G9 MUDlHJPfNLU5sYN8vM2x qZmyaxgvN9YbcXXsDjI2 MMK4ePBcfI6pvOtr brldwK7kCoe+T42PBN4Z OLZZNY9KOlq0Z7YjPdtf dHI+JX42AFCrIP51jTIj cQQwh4skvXz1CnNz JPZoYRQ7pBgjBOijs8Dj XEMnI26ujTQjt7R2ZFIz iIcmpOOwWjDtwCF8gU4i MZfygwdeu4qkpjoh Nuxwg5apor33mO57O04g QIrvNHUxDNM6UDXzEGLh oAxpec3vzY7zTn1+IDxj i5tcp6wvlEn4CuXj CMNchuUjnCbtGDP8y9Dt Cw11X1GytQkyg0CyRoo0 mi94vDIdj0F0xCM3KQnk OTFgaO2hBUqcZmW2 JQJxMfZoqO60uWNrBQxw Iv0hgLaeoIwcOL2rJGLe nbteGFQatM1gAMRyjHSj pQcqEJ3yJSThphvg i715SlNmBMF5OZEjhBIq O0KxyI3vKvWpPOKvTPIy H1EdaGGgYMdzE295OIhs GgA5UMBdpqHzZ4Gi ZPHgoPakGbU0v7M9Jh6X c8GmttfcEHB2NHucXIEx WkF1ImEvZpC1V8SaBly4 CXKnqUmbPL7sN0Nx AXOzrwphcbhpsIA5FVGh WNFyfV90rINwUZdvFb6k f0M1u357YVGaHFJygY77 Dw9izZsmNLRrxNUB aN2otgohd8eioqpgNgHy XZJfRNv0IZr8SVMouLkt QoMtVJC7PmI6QAG7fNCt xG6awQnfeyvidO0j Oyc+V74spX2hPBL5QYG7 mjjvHBYkrjDqRR12GX39 Y1IoOsrviVTunCL+PGRp hsGbuGnpLQ6gGgGa l6mtz2CqWEkzS1KmCYZo VPmyWeu9VGAhAGC6oAX3 jF3fFKBrMUihb9N6xZG4 P8CvieSxsx1lo8oj LBAcICwjG38abUNpp0K6 RUJkdUX9ZHLbbPmoHcFz rD34Ted+QLMpqMaqz6Ox Ghiny0rkl4fjyGw0 IjMwJSIgdmFsaWduPSJ0 t0QtYj56P74uSQagOXBl KJCgLXVuRLTcoFycmt9l eW4sTh5+PGNvbCB3 qXR8qD6eHTHwVpX5WRnh V896IaHhoNBpCxhjq2mu w9yjgNg4FwYdXJMrljUv bSowJBL4z8EbTn34 N99nXXzaXUZgCYFwDEEp ENZdhDssro5nlZ4aUt4+ SZ9ih0svhf46pS16aFD+ SUWnQKB6bLoySIvc EKWhtP1yQDerXpB4OWEi HkCsmM92jKGcRPxvFx9s cQpzkPmaZW7mVDZkmxmc v123FwZyg5kaNRNg sUEsSGygIBT7S14oj0D6 YXVvNLMdNLH3qOO0jY4s bGlnbjogbGVmdDsgdmVy nRldFDyvIPolP989 IHRvcDsnPlBhdGllbnQg AwStAHl7K8UgAwj0DKZh pPuySG2byGXsLAxhQp1o qDbbiNhvCD2aOLTa ufqbh226EeQxo0tbUTYa oNDmHLpmRPU8B99cj2L6 VQDnUZNsLVH2dIQ2cT5l bGlnbjogbGVmdDsg zcIjpAuqGVvjAEswY502 IHRvcDsnPkJpcnRoIERh bIE8LM73PW17hMDjr8P6 iGC1O4XmDBTzhcbm frniuEO7XLWpJNEfzE08 Gc1woPrsGl7yPFNxMGT1 KVPlsJEzP8XusG4hNuSl VLOoNVBgV9ErfHNi CAwzK442JAkeKhZ3THQj emXzV1VmVASlrNauYtY5 q0U4Zo0AN7R3XJ48SP24 iGAum4X9sLC0G7Zq XUYvlnseynmpfQL6HXQx ZZYkdD45Fy2xxWihLx8i RMZrOZB2QAMnxRJbM0Ko bN7ePgKfTVAfANJc L8OhcAFhCKdkF446IAmn ZtE2OOEywtAyR6RaJHDq uAliRlI8n6G6Gq6AGXk4 ZQ43TV27yNEbe6U4 sAR4J0BeBYVnnokcshaq uKP5WXFsCKVldK88Aa5k pVqoGu6fYVCiYZJ5SNAu bDNaX0EkfV0aDjMm VSIjFVEvD2DsoIMyISnv J968HPkaLpM1TBPeakJg V3HaWXDzfYltQvR3j2T3 Zy2DIYYbZY63XYO5 yBE9AE23QQ71S5YjBumq dGFibGU+PHRhYmxlIHdp ZHRoPScxMDAlJyBzdHls XF7wKm6nLGElVCWj fZrexGOkNsObj4bcUPOi NVpiSJ0zrTdxY4WupUH9 XJSpk3l1Kf45G75xZ4Cq dXA+QOZarEA0tOV1 fA5aXsSoEyG1EBzcZ165 AsEwiPKbZlijl0pcq2hm xWe8KoB1RGFosfZonRsh ZUE6c1AaKn79S30a IHdpZHRoPSIxNSUiIHZh qVqbgw0axA8pGt7+PGNv oBX5eXV6yN4dHkAbHbL5 SQseU148XwIeiXSk Smkyk9ltz9tbwHy6PjMt NUDklrNbnPrhWCA7o9Qe Cc66Y7OcqTrix3IxEgq9 xh76tLTvl5V0qKG1 S6RrWURofgvfjAIysYyy WF5tKVPmiggxKPSjnG3i KUKcZ6y5OkZbCcD7XPfq J9OywgQ9HVXpdGPp WWncPAI7J99ze3D3SGWo WEUmBNO0jWW6fM1bsFnm bjogbGVmdDsgdmVydGlj XDloAGwiZ931OMLi pObvPCGjbQ4hUJSjjUMf fAibSF8uVBAnrtbtHiOQ O3SYW78ISZTXW9YTFlAr RGlBEU30S8IqBab2 KCIixPjjGQ8kyNQgIGhz Iy7suVtieBlbCP4tBMSp aavdHQVawP1xGXVseDQj kHhrCL8gVCKohibu k246LdKgOIO8SMWwzSJm E2UsvD3yToXeVGKhCPIb W7HwfGZnFDgmY657SAhn MuQ8BLIdjiZfE9Ib IIWjoCqbPeL9q8H2Fm9a AT0xRj7eHMQ6BK52CC26 rFZww6O7zTI8N4XyFOGu hcoimwbylTZ9VCGu RMNyeB97sSGzANczTo3k d3J6t982NJZfAQFhgO67 Ky9rsMysDNYpxHSEmW4m rnzns9sdneceKzOz XPLpBBg3OIt1JLDvmRiv VjAjYTY0BeP8MJC2oHJy uL8gfPvloerkjG1fQfs+ OOEsGHWvcbF1A9Ug Cmq7TKAsmDptLL8ggATe ALdzJx1rzHkrbZxfNA9a ZKNlcacaTVJzvY5kRMXw oQMmbKsvDG4lFUSr kstsn249WyMnIVS7QJNf qBBjA5GyuC7cJeWkYBJq RBNsB6BrmAGkXSsdR287 UMhlHkU8LQPxpuDx E3TdFFIclSrqEyM2t1A2 Ns2ZOWeODY59FK89hDJs l7Y5eJA8E1WfVOJdcwjm dqphlLG3VGKfEYVv hT86oFWrLRfsLi3jh3T1 g793SMElXKWgoX25Nt8o yPezEOEkmTOYdC6ttewh h8ykhohfTgTjQJXx KNv5PJq7JQGelTwnRrXn TVZ2GpO1SMW6rNLrqN8a nGzjcqgeeH7dVqg+T1A8 D4TeIozhgPC+PC90 PPGlZD77aLZpwAXab8ue uTd8TdXbVURvKEY3iLsy WGqnt9OnSIStE67saMQv i2Y2HRLihYoiuLIr VzBukSZ2gU9pLCzrrryr k8azzckcSomux6nrnt85 cO77L81vAQqhOTSqVBYj KZFfUAGqkYbsuy0e uL9mNx6+MAEatWC2qVW2 vI9vOaUfXjR3NPumP338 UlBodYJwDjoev9snu9oi vNg4CiFrCCZeywDg iDllIKO2x3PpGg63M31h IHdpZHRoPSIyMCUiIHZh aKtkdn6awV4lLu7+PC9j t8nqth10pQ42tAE+ CPPxPLN7qNizWLzwVXBj yX1yMSkuQzR0WOUvIhTw yL78cTWoGQbnLk3ocGqb qYzdNV2oQGKpzilr v574YcXlr4xoSYKqpMWl AFqrQLR6I23zl9J4CIDl KEHrPKG2jNV1wE4qvYxr bjogbGVmdDsgdmVy tPifEOdnXJefP619ZQZe mMqjCaAumCGuN6ecsjDS NO2uPjyfzKE+PHRkIHN0 nOkkGSesVBQcgB6r VPBfV5i9LdVaBsG6CNbx N7RitaS1OCOmiHOdLCWf aYIWsX4uetluu3vhwppj GxGdZTVjKAw8OKe9 DCEllCdhShWxKFO6HhN0 HQM1qMQlaG3oyPthewem oI8jXyf+RklOOjwvdGQ+ UIAdFOK5pLyzCQaq PNRtjD2mWNDaY8m3TbXd NmA9KOcgV1HyuxC3RZHg vBRmNVNtzRAVoF8isbhx m7chpcikCjMtEPGr WYk3RLc4RCQrqAjpTrCf HCD1FiE8DIR6iUDehU3l nLryjdanaO4vLwe+TVJO OjwvdGQ+PHRkIHN0 rGooXJahTHUogZ4hOMQz Q0x3GbImBiH2MNxiP5Tp udG3MDNsuNNaNVYtuTQU mU7fpnxpj2rpnzws JbMoYXVdCGo6VUw5IQVl bDckLbVvSTB4YmJ0LGH2 zGGxrG6hoNooxkuugQ6j Oyc+TUD2CVK1TS46 YB91M5WuCsctoPBxqSZ+ PHRhYmxlIHdpZHRoPScx RNCyOrKbtQlmXP4yKu2h ZGVyLWNvbGxhcHNl OiB (more content not included)... [facility] Rad - MRI Reporton Rad - MRI Report [id number] #[id number] [facility] MRA Neck w/o Contraston MRA Neck [...] Torre MD 10/12/21 7:46 am Technologist: JERRI [facility] Coding Summaryon 08-30-2021 Coding Summary HTMLBase 64 UncjrsaqRUf8kLq+PGhl YWQ+NM4ULHAiE21irRSz sA4HQ8wYUL3EQFCUZTHY DJ0QRW6jzYO4ZTvnH6Ew biAv WckdwMVhGP63ECc4ISP1 tAyvVYvtuY9doOCqR6o4 UlFyMH12aF91NEaqTIZr KnV1XyVumieyhPSq M2joViOjjVUqVaq+PHRh YmxlIHdpZHRoPScxMDAl KoSkcNslVK7pWg9vHCFi LWNvbGxhcHNlOiBj e9hlZGMlGPfeAY8lsIzo N3LbgEG4LAOsc0y3It19 dHI+AFQoVVL4zGszQClp g400HkHbu4hhJMJ2 rLTvKBhpXSU1M28ai6T7 WGJiQAClDSK8dBE4iH2q rWxjlzolN3GpeIUqDrO2 VCC6sJHtnY5rcBmp qxvibR7qEth+H06WQQ2N QEMRNY7MIuc9L4PdFoox dHI+KM01ABEtNK43zIGz nFCfv7hxvRr4PgMu VJLlGHD5eWxbYIwkj3Sc BQGvO59awTExr9Z8YSXo kFcruHPsStTutPI9dK9e PAiagczpw2yoykpi Ogdlg2awiv29fC10Y00v JPlaUGJeLCW0UAKcHOKm wQeltu2zkO5cRq1+IDxj v8ctm5ktqFc1RbEk GUPooxRnyJqySMV6q1Dq Uu10V6ZwkJnml4QkUcs6 ea81jKVjw6K0iLI6PNnt NONthB3oRGrrMlA5 YXWkOqPcqD95oTLsRHbm Ui1zlYoegGseWW1rVHEj octsWNXzlC9sJBMryMRu rCtoKG4pEWYoetcu m862EvJfSNE5RHAjaKGl N3WgwK7iLoGpXPKlXNLv Z1VqdCZjMTqzN744JFnk DhX6FBHmogCpL6Fc BTQaqIqnQzE9i3L3Qo7N j5JapnnqBTR5AKanFVXc MzVbTsVgWuF3P4XvTqv3 IRDyfHvuDW3wB5Jt OTWvyblkcbgawSI3PNEt BQTtzB85wJHpIIjaMq0i g2X1g689NMGwTKXzeL14 Nk9mmBinEZMopHZY sW2rzxsfh3fnvtxaGwLc GWTaRZr5KYx5CFAblTac QwQvXYZ5TpU6VSI2xECg eE8nmFrxkuwbuW7v Oyc+E65fjX7tPUL2ZVM3 yuvmLQLpbkApLA91SO16 L6CiTpgjqSBrqYL+PGRp qgAshRhuGX0uNgSa n7gvh5XrRTayA7ImUGHt VOiwRql6KWIeEWN0aXG9 hJ5yFNOiDJdmr8N1nNC6 R8EbhvYbqy1xx4ny PBKyOSmvF56lxKRkd6K3 SUSnuJY3AZItcPgjCgFl oZ89Whu+YHMamIruh4Af Adxpz3zeg0gtkNf6 IjMwJSIgdmFsaWduPSJ0 s5RiIr89M59vMByoQPWw KRNaDFBnXFJmcPwmsi9k jQ3gIk2+PGNvbCB3 eRG0bG8zCWVpYfT0JAjl C859YcBvaKZsFfrju0bi s3corXv7GmQrKTRpyfYj oGtfIWY2n9MnDk59 S40tILvmRXZjTWDsZUYs PSHovMtywi5lrF0oTx4+ BT4uo3lrry33aW74qKM+ QRFpOUR5gPqfSAkv IPSinW0iMUkuIzT5TDZu LxVguT94mHXsRNimBg2x vBudjScnTJ6xYDTbblth d988JjEos8jyNBWl gPYrEPwwURB5H03wm3F7 OOOzTBHeNJN8uSX7uR9v bGlnbjogbGVmdDsgdmVy cHcfXDzqIUfbL975 IHRvcDsnPlBhdGllbnQg GoYwPCk7X9BaIdd3UKCx bDsjEN7zvOPgTYizKo8d wJdgzEzbAL3uASKo iqkoy367DaVsy5ybANAf lMGqNAvbGJI5B97af0E9 PGFmTZLmHWB5gMU9aX6f bGlnbjogbGVmdDsg opXgbIjfERhqTStqT813 IHRvcDsnPkJpcnRoIERh dFP1YP32OC03jIDnp7C1 aDQ9K0IpFCSehuqo praedKX1BKQkNVQutN00 Fn4acFoaSy1sVPYcTUF3 CQOsxQLdZ0VbfS8sQxRj YFFhXZQfK2OkxDTd XQjdS139BSovKrH2BTQv hcUuH6ZlWZUxjJgzHqG2 y0H8Ev9VS5R9CK34AI54 rDSlx0Z9hKC6G2Hm HFZvqpkcpyxznYA9TSDb XGLfsW84Sf5vsJjfCh3d YJWgMAT0SUMhxLFnF8Qc zE8iZvAoCSVnONLg L1AynSRmXFtoY687XNna LeT8XWFdmvGfK9RwRSBo vMrrUkD1r1T1Pr3QOGs5 YS17QN94sFViy1X3 xTW9S0KaDKArajoskinc pOZ3GWAtFKRkjL27Ow7s rTxgIq7qUJZkBGU7VSHu oQRtI8YclY3zLuEx RPBbQRIeT7ZwlWPdHTso L777IBrmQwK5AMBbinLh O8FfZWXerWlmEdC4x7A4 Jq9PYVTpQO28GDL0 nSH3ZE88BU15B2NpMbyu dGFibGU+PHRhYmxlIHdp ZHRoPScxMDAlJyBzdHls PZ9lYj6oSGKdZGOl zHfyhZSjUuSlh7rkJUHg CRfbLH1jlUfjV1DslGT7 DUJkz3i3Iq81N78oF5Qs dXA+LETwyDT9jZX7 gE6dPfAhEuB8IBahB177 GhJphNWzIcdwb1puv3pw gKd8TwD2MYGbzeUglNrc EWX2t4PpUb95B33t IHdpZHRoPSIxNSUiIHZh vTyqzy6goT1oQt7+PGNv cBP2zJI7uP2lUeBzOpX7 FJoyX602CoCgxTVk Njnrw1hrr2onfRq0SuLv GOIoodYacOedGCA1t6Bd Zm09T8NbsHwkb2PtTsa4 qf73xZZlk3T2cSV2 N0WvRSQhwxdiqJOghCnq JZ7oDSVrhktkESWijW5f TXCmX9c3LbFyEtQ1WRgi A1ZqpjJ9VDGjdASb XQlvTYK8G17kg6R5NDHh BAYwXZF7nDH5dP7doTws bjogbGVmdDsgdmVydGlj DOpgHZgxF479VPEv iHgoIFFutB4vDITmzVDh iBdkQW8nTHKonvmrEcWC I0RAT06VKKBIU3NEDuQu WLwJQN49L2IfEou2 QBJqjIeuYG5lvHArPWic Rm5ztYpkhDirXC1gKQNz mujvFMPakH8jRBAmwGOw oQfqFG3lNXObktpc s842UqMoRYD2UMCznZMi G9WgpG6gChPaUCAqLPBw G8VgoSVlHWbkE899HUsa QsJ7VDIfzdNxZ6Mn ZVCmhCitSgB8d3F5Jp5e KZ0iDp0yEIR9GU55HU43 bJNfz5N1cEU6G7UoKNCv pwvyaofjzAU7UCJn HDIvcL26qPYoTNueMg0u t3S5u638ELJoSMAluI49 Fg0ojNkrCTDfeTZQgB0v bvzmg8wpxlsgXeOi NWPsDMj9DWj4ULFipEbc UkOwRUV5JdI5ZFW6vIBs uV8dsAahpghjfJ9hSbl+ RLJfEELtjtO2Q5Hj Gtf5MBKoxVqiXQ5beEWh ROqjRy0vkNsbgRorKP9t GGMxywicPGHzfN6sBRUm aKKfiZqqRP2vIZOo ykudq794ViFmIEU0PXHn mWIyG0WafN1zCqSiUWYt OTHjX6AexUSsMEnsQ278 GBtiBxB4NNEzzaPd M3XsRXHmsKjyCzL7b7G4 Rx6BXJaFRM05SE44lBFv b6I3iAO3K2WhIHCtoiwl vitcaNB1YRKpPXAo gA33qDGrVZoaLt9hw6O6 v033XKNwZZJxbV30Zm2r zDuaJTEeaEOYxI1vvkwq w2cfexcdTfGgGWQu CGo0XYf8KOEmfFygMySz NQR7CfT9UTV7lZYcyT7q gCxzmgonkT9eSha+T1A8 A0FvRizdvUK+PC90 TYQnTI59sZMnvRFho2bt jCb5CvFlEXNuMWD5jYld CMapb1NyZBGbE04nvPWl n4W5EPTjzZfjhBBj DkLvkTY8yE9ySTxxlzgv v0rydtomMqnhj1hhnh95 fN88V70qIUrwRNFjURWr UYTxIKUrcFbytd3a kD2vWn1+KJYudBG5nER5 hZ3vHzRfJfF9VKfeB937 QmEnsGTkHrjlf6yjb5ab rVd6RmUgPRDpdwQp cVrgQUG5t0IrGe37P75f IHdpZHRoPSIyMCUiIHZh zDpzbp0qyF5fBd5+PC9j j1mryv32dG87fZO+ WJBbVVP1lYaoCUftAQPc cV6rUGzbFzX4VAGhHkHa uX80vRFzNYdmHo3raXzc zAnpEV1yEXHpcngp q360DqJzh7ybXYYxhEBe JUonAGW9M24gw0Z6SRZk GIAdPIF1wTP6tN1ybHga bjogbGVmdDsgdmVy tNfcQBmcYBmoR432XRHg qJqoIsTthYLiQ2yksgDP EF7lTvmlsTA+PHRkIHN0 nPxrLKapSFVixN4d FLDeX4i0EpHtKxL1QCrh T3VbmdB1NVAjvCXeWAEz xPEQpL8xftzhg4sumbse XyJtCFXyRKp1DLr4 XBRqxUtqJbCnYWC5HiO7 AFF5pYHlvX9ajJpvpwqb iQ7rWjc+RklOOjwvdGQ+ DAPuVVF5uVxzTHcd NJQqyH7zIMPeY0s8SpHh WuR4DPjtR4IfwhX0MTSd iVJyLIUejZAByZ1tokgq i1bwqbrmRqNbEPEu WIh9ZGo1PBCxdItcPoYt ZMO0OoG0CSJ4kETgdG3n bYeudugjiW6sYpx+TVJO OjwvdGQ+PHRkIHN0 nFmqNDeoWYUqcO1uUMLv X1t4AwPpXjZ1XIdvZ9Kw ejT9YUNheKKoSWYovIOA cC2nqivia5oekpid OxFpNWKfPRu9YRq9SFFv lUiyVaLtFRJ9YfY6FWD9 wSYlhK4eqWgkpotivW2n Oyc+XMR7EWP8PN53 DC38Y0KzZgdmrMHkqIN+ PHRhYmxlIHdpZHRoPScx MHTjQkBssEleDX5aVc7u ZGVyLWNvbGxhcHNl OiB (more content not included)... [facility] Coding Summaryon 08-29-2021 Coding Summary HTMLBase 64 UovkysqdNTr4xAo+PGhl YWQ+EV2QJEYaX45wpNZw rT5YP0wPTU4KRQOBBDHM PI9VNB3cnXC3XPkhF6Eh biAv HxbudWSgUY91RVk6POR6 qHanXLkbcH7nkTSdN7p7 UqAcRE90eQ33NMdfIAFk LdI8OqPzebaefOHg H2eaMhLltJZuLro+PHRh YmxlIHdpZHRoPScxMDAl HoTcsOqbAP5oHz2kSTAh LWNvbGxhcHNlOiBj p4mtTOYkZBjvSI4gdRkj R6SccVO0XHPsi6s8Vy28 dHI+ZEQyGIL3xZpqIPaw f918FuAnt1dtEXU0 uVQpTIivLWG1T22xu7B6 CYTbKPHjREF4yHQ7iJ6v bCwerjfzZ4ApvJSuFcX7 IFZ6jNHaaU5btZni ipleiD4yPua+P73QFZ5Q SQMSGG7UPem3Q3KpGjjh dHI+ES75BCYdJV97fWBf iOBis1fuxNd4NtQp GWPmZQN2tLqdPQrvz0Es YJPcI81uvYNav4R7BGPv vEysmTKgZzWklLK3vA4q ILwteyict7hhixrr Icoov1timu92cT64V11b FYxgFQOzVBR8TRRzJXDu eRgula6fuJ8eJo1+IDxj r7htc8umbUt5DbYx QJFvvtLrmSibNPO7k6Su Nj49G0AiiMnoq0OwVwo8 sh89jVObu1Z5xNL4ZDbj RKRfgY3uYGyzSgG1 AQDuCkApfQ52vKLhHVxa Df4gbPhbgKtaJC1vWZKh rdusVCOtmT3fLQUpxFCu hJoiGA2vSBBlsvfw f312HuSqSID6JAXgcOQj Q5LdqJ0sXhAbXHMxOKCz G7MtiPVbTKyuH347GWkc BiX7ZOMzcxReL3Lo YNQirIziAsY2b1F0Sn2Z p3YfhjfwTVW5JXzkVTPi DtLuRoWlZaL1X2BgVao6 GRLkgTibXQ4pA1Ud JMMgtjeivowlcGC0JXKc AHDxoT86gFHxCUmbKw8j w0P1p327QUKkGKOjaK55 Yf3msJfzACWrwSVU iQ6rjibms6nxsfvwNgUy QFJcREv8CRv1UORdhFjm FgFeJDG1WiU3ZJE4fGWz aW6uzVvheoehwZ6z Oyc+H34bsR8bEOJ4VNH3 qmmzBPJpzwEiHH61LV03 H5TvGaebjCYgzEY+PGRp zeTelCcuAQ1xJmAk o7jgx1RxCRnqX3LlQYNk VVkvXuu3BFUkGWS5zNA4 cT4iZIFaKOrqk2H2tUD1 A3AxajQvql8pe7tp XXGgFZngE39rhFYlq5N6 IRFraWA2GSTqpVfuXoPh iJ21Weu+BEAngPmdl0Qb Kdtqi1oot2dweVg2 IjMwJSIgdmFsaWduPSJ0 n1UuZf49Z73bPDtjAQOo YGNzMUGfENMsyBjsuy5n rA9qTk3+PGNvbCB3 pXP2iK4fTOUeFeY9PBxc X592PzEomLMcKbemw9sc a1qioKo0XyKzXMTxkdWy jExwILC9a6RjPu78 T17qDGagVQBvRPQoYFUw JSWrzLoeoi4iqH2tJg7+ UR7ce6xxbq38aG50mSB+ DFNmNUR9pCtxDGfh YWQtlA0iZXsaTwM4XEQc CxOogS98kINsUPhfCq3b bXrbaEudWP7oKLPpxzoc u274OiGnb3jgGICf cTHhQSckYRN1G23yf5Z6 SBVaQERjJOE4jGC8lY6u bGlnbjogbGVmdDsgdmVy xLbkJAafNInpO093 IHRvcDsnPlBhdGllbnQg TdPuWBw7J1MyLwc0MQYs rSwlEX4gtJSjQMviQu1o vKdcjZfdHR6jLYQf qbatc858FhMbb3xhLUNw lRAtPVmcAPB0R23ca9J9 DDHyVTPtOPO5cBR4xE0q bGlnbjogbGVmdDsg zeAsgCfbZFlwTZwgV780 IHRvcDsnPkJpcnRoIERh zZY0YJ69NC06dUQis0I4 sAH3P7SaWSXvaglv xumhtTV0BNTgLZZopF78 Ig8dfQlpAu2hWDNpORZ5 OSDmxYLzD6WezI0fTkJc FKJtHJPtI6TeiUZq ONruP564HZgiFuY4GURr qdEqB2HaXBLqoKkrMvU7 j9I5Dw1RM4D2NS66JD07 tRQgq0N4oYL8X4Sc GBSrabwfruekzCA5RPBd COZpgJ66Tl6uvCygWh7d STIfPNZ8MYVqjOKzD9Iq qR6oNmPnIVQqRPZx I1VilEWiQLdsY747DRbf ZvF4GJVdidLiL8TiVGXz fZbrRmK0b4L8Av4PLRk8 QO67DX47oNShi8O4 jWB5T9UoXLZeoxdzmvsx vBC3DRSnDKPihV74Mz0t ySbgZg8pWGLwPXG4GEVb uFFaQ5LzrU0hWnWa BZEhVXNzI1UfkYFoBKrl D576KXnyYhU5SIWzuaKf V8AlDPPvtLufUbC1d5V5 Jo4ONGMgQU91CXQ1 uJY7CM55AH75Z2HlHmyq dGFibGU+PHRhYmxlIHdp ZHRoPScxMDAlJyBzdHls MG7eVy7rHPRfNQGf fRmayGCuJsNxq5ymIZDr MCzzXW2jbAhjT5NjxTF7 XNMyy8c4Lb07O93sV4Mf dXA+UBCdgZI2pZM5 iG2gStFtYlO3GGgnF952 QtJanFRyPixna3hzg3jr bWg6FzX9RRRmzcYxaKro NUV7f6CdTg34E70z IHdpZHRoPSIxNSUiIHZh fAvwml7hyJ4cZa4+PGNv gMN1uLE0sI5qFqWwBaG1 AWtpG192ZiDevQIq Jqado9vzx2lbdJe2MvYm ILHzudVvmOdaDTJ7u9Vf Ok84Y9PaeFccw2LmZzf2 su29aHSgx1N6eCO4 C3OvHCGfooegqNMdaSuu SL6rNPHsdgkgBJGldT9n UOKuN8e0LtMsTjI5QVwq O2SzzqE3SBYtvYQv TExoJMB0M63js5A3KLWa JFCvCYL9bGA7pJ0ipVkj bjogbGVmdDsgdmVydGlj IVqdQMmnE501GYQr fGpaHYIzyS6aVTOtzNKp wXblLU1dFAKbpjxhEgQM E1XKL01FZITPL8NMKdZk YMnQJI49X5PkZkc4 FEHdwMjwLA1dkPJaRJmg Se9gfHrehSvhOG9mFOHn xnusOQOmqK7jNDAtwYAj aEvaSK7aRQSbbyzw w988EySoGLD9CJKdeZDk M7KmxL6hWcNsWWNkHOPm G8WxnAGuBNizX435QWcx HtM8ODIrcoEbC9Yr WIEadDfdUyU4b6C7Sc1q WU4lYq5vWKD5DN12KG58 cTKog4P6wNE2R2ChXINq furrsefwiZN6KUYv WGQykJ72cXKyUOcnEn4p x3Q9x106QIEoPCShvG72 Ue2usCveOLWlwHYIbT5n ntvyi7eerrbzWjAj HTOuMSw0FAa4WVWdfBqr WqZqMMA9YgY9LAX6aAOc tI4byYauvehxkB7eUcl+ SSSgKRYuemL4T4Lx Zqf3YSSpbDksFY2zuKHr ZBiaMd4zgYoclZufNF2m HWJfoetjADLdbW0xPXIv zXTvkVmpAK5zYZNs tpsbm560IcWcGDC5HRAu fQOcL0FvkQ5jXaIcZYXc WOMhJ6IfuBJoSVhsR300 FGykSyG0OSIbvrNc X0SdWGKbwSnmFyP1n0C4 Am3GILvURW08JN68qSZs s2L0kFT7G6IpMTHczjvs jffuuHU9FMOcGVSg uA35cLMoUClsJm4py2K8 a258MBSqXZYpuH88Ls8u qKtqJIRxyQVNpW4kgaih x1kdwmnrKwTkMGHs OYy1IHy1UAAmsRprFeFl RPG6PgD2IHE8qXIqtG1h dRjjfddgnK6pHmu+T1A8 V1KgEcfelJV+PC90 JJVaRD32sMDvcRHhk4jp yLk8TpBcAJQuDKG8jZby WFtdi5CmNQTeI24xbTOc c9A9MLDvwYvzyDOm MxCabVV0kI9gMHasoxsa u0cwubigEcbam0vixx38 fE50F12uYEcrYGZiJQZd PARlFQWyqWykqv0z rC4lLe3+GCSmoTJ8uQI7 fG0uQxMkElY6NJasD154 XrCzuKObNlsuj4swq2aj rOq5QtXuWHHhkmXm wVnlVYI8y1OfOz82L75f IHdpZHRoPSIyMCUiIHZh pKjnwf5ojC0jAg3+PC9j t4pyoq85pC36vEV+ HBAnRIG5cEmqTYcgPSLt eG8nCNybLdU5CKRhIhYv jI24bFVmYChcYi3zvCvk aEtrNA9aWHLwdtqj y465UdYsh8ltGMJseRXh UHbrLMO6A53yp0H8MCUn BJGaNDF4iZV0nP6ykYbz bjogbGVmdDsgdmVy tQpdBPbgBAhuR595CWTw pLzgEpWxxCVyX8oxgzWI XP6vXhfenKO+PHRkIHN0 tLosAPoxTKUhnD1e HAXmV2f9LnGgUdC7CQaa E1ZhthU6CNTcuXEiLOMn rZRDoW0ynjhmm2zxqjfh IeXgUEJdJOx8OJp2 XOLxuEiaDsExYZK4GjX2 NJX3kYSgyU3phPhzfhsl lE0yRpo+RklOOjwvdGQ+ PKXbVYU4sVhiYXdx TPQgzJ8xBHJyJ1b6BzHz GsB8TVrgJ6LdkpA7VROf pDIpIEWyqZEHzQ9szmmp s7ogtmsxZzFpFVYl QZi8XHj6JIXmpBqdFmRf HRQ3FaB9JRM5bZGjgF3u cRrvnlkbqM1mKqt+TVJO OjwvdGQ+PHRkIHN0 bPheFMftLPXhbY5fLQAt L1p3NtKaTjW5XYiyC4Hu ulM3OWAgvVAxSFAvtLLU tU4ffjgwa1siytwc MxVhSILgIXz4UPc5OMTl jEcwXyClDYJ7MqZ6ZUH0 qTImuY4tvMvfuwhawO5s Oyc+JHW3SYE2WQ30 UP11G5PgEhknoZXykRT+ PHRhYmxlIHdpZHRoPScx RLXwPoYwjAwyER8bXs2a ZGVyLWNvbGxhcHNl OiB (more content not included)... [facility] Provider [place] 08-29-2021 Provider Orders [id number] #1.00OTGTIFF Normal [facility] Rad - MRI Reporton Rad - MRI Report [id number] #1.00OTGTIFF Normal [facility] MRA Head w/o Contraston 08-10 MRA Head w/o Contrast MRA HEAD WITHOUT CONTRAST; 08/27/2021 2:19 PM EDT Clinical History:LOSS OF BALANCE Comparison: None available . Sequences: Axially acquired 3-D gradient echo series for the purposes of zrtc-nq-xtdpxo MRA. From this data set multiple volumetric [...] Deshpande MD 08/28/21 7:28 am Technologist: [facility] MRI Brain w/o Contraston MRI Brain [...] Deshpande MD 08/27/21 2:50 pm Technologist: [facility] MRI Spine Cervical w/o Contr [...] Deshpande MD 08/28/21 7:38 am Technologist: [facility] Physical Therapy Noteon 07-12 Physical Therapy Note [id number] [facility] Provider Orders [id number] [facility] [place] [facility]29-2021 Provider Orders [id number] [facility] Coding Summary HTMLBase 64 OyfsorygRWe5wTv+PGhl YWQ+NQ6VIDBcQ21agWLc dU1PN6lVUC3JTBOQONOV PE8ULY4cjYA9PQbmO9Wx biAv PkonfUTxZQ59PNk9YSG3 fXutANxaxD7vvJRyW1w7 LoQeSX32sR30OUnkRVUu BnG2KlJzxhjikVTx F5nrZhGfqPAgYpx+PHRh YmxlIHdpZHRoPScxMDAl NlChcTyaYW7aTi6kYLZp LWNvbGxhcHNlOiBj c9ltKQRdEYmuAD1mwRmw X8JbeCP2GQRpd6y2Ce18 dHI+IEHkWVH7kKlbSTyo e800HhHln0kyJFB7 tUCkSOkrXXS7Z93lc9J1 UDMhJXWsANL6gSY0zE6s wFgfzsbiH3VknDNtVaC9 PLZ2qBMocY0dpJrp ludjlF7rEjz+Y62HRI0D MMFAIG9WYez6C6YoNdct dHI+NN08EEVzQK20iVLd aENgy8jwzVj9HfQe URNlHMU5iFafCPkzd5Uc IVOwE00djSOof7W3PNAi jVeaiBFdXpCtpNI3sG0a RAeoqfbhe4txciap Xowth4sfnj89bS50H16q VCbwXFMtQMA2DUHuOXXw mNdyva7acD6zWm2+IDxj q1wxk4cpsUg0IcSu ASTifcFwkFjgUEZ3f9Mp Yc88C3NirPfmr1BaDgw9 zx28hAFvd4X1fPX6BBqx BSWzlG6vJOapSvL5 XSNzEmOfsW42rYMdNFyb It2hhXbfbVuwSI3oNYVu uujbPBEzlA5yYBEjwVFb eZywWG0qGYYoydoi l964DuRxFSM0QODxtUWc Z5GsfC8jLaEvLDNqXSWy E0PufGWqXWhdP169YIib QtN9JZAdloPqF0Qu OQNshJucRxR6p3F7Ur3P v4MxdgbfNTZ0AOfwARI7 MvD4SsWcDbA5K7JbXai1 ZJTbsKmzRP7wU7Pa UULfgqibxdshxFY4ZIOb OOGscB04zHKgEBoyWv5i a3Q5x768TVAfLHBttF87 Js6icXbhWHShmLFY gB6wyfqyz2aqzouzLiEw CNSfZJj8UGg9XCKxmCev KaRhIAQ3BsH9NVO9pDQn oT4xrVknzutfcS2q Oyc+G69oyF9pPMZ8TLY6 kkpfTUCuxnIdQQ90GB62 I9GpSecdvHIukOM+PGRp nvJkdUhaQM2uPwXl b7vaw5JtUJydX2CpZTIa BAqdXyi4JJAhQMF9dIM7 wS7eSSDvDWqvf6W6tJN9 L5HzssLkow7lj3bt OADxARuuN62qnJImj7C2 DZKfsSS7OFGgoBwyWrYd yU89Hvj+ZBPzdLldt5Nz Wmdnk6qxv4aptOe6 IjMwJSIgdmFsaWduPSJ0 j2FjOz74B32sLWmyKWCg ZFUbWUAvAUQojHnjkp6a lN1lQb1+PGNvbCB3 tXR5dN0sNSQxNfA6FFct H361XzGgcFNlTjwfs7ha t8kwvKn9XbNfWKDlkaSi kWurTYP7i7CxCc34 I15gGAbdMYXqNAHsGGLl TPOwbMgrji9ueK8pUc8+ IV0jm6kkja18uS44iNO+ DPTwALK6lAjmPZtd TDAhnC6eLOvuFvE4HPJg SsCowM91pRMyKDluQh7p tUcalFapXJ5qSKRwgzoa m799RgGii1ykEFEy iWOjESwmQGN6A01xc2B3 GXOxXYVpUOL6hRJ4gP5w bGlnbjogbGVmdDsgdmVy qQxoOPgfUVaiR087 IHRvcDsnPlBhdGllbnQg CwAsPEr2I4WrHwx7UAVu oTcoSY7tiTVsSQetSw7o iBproOgfDV5kOUAq lwudv868LuNgt4hdQVMh hRBlGKkkAWW6X19us3P8 YNRmWUScEOI8tIO6lK3c bGlnbjogbGVmdDsg uoBpmAkgSIkxWDnjL404 IHRvcDsnPkJpcnRoIERh hSQ4RS43MV98gDOqz4G1 lMU9F5NiSPZtbqie drmioRK5VVGyERCvcT15 Pj2yqKxeAw2tEDQrAMX4 OWTupVWjW8OvtR6aMyGm ZQGdIBBsX2DhsQVz NRybJ168ALvjYqJ8KCNm ljZqA0XjAEMvyJnkJrY9 y2C0Vf5TV3W1FD09GX22 vSMem2G6gLJ8T5Un WJZxbvugfqlvjGR1NWYs UHLnpW83Wf6ehXhvQt9a HZVbYQM9UMEzhJGoB5Ri pO0mWeZzGICvLFDo A8RmcXKyLMndX866YBzq BzA6FASkfeJkA4KqPAFl mKgmHlG8q7P2Xu6KHLt2 EV20MY99cWBto0B8 sPV8P2KeKTEbfjjymeit gGV8NBYdIVZypN68Bo3l zVypWg9fIYQjEUJ0ZZMd gBTjU6ZhaJ3gNqNe CMIcBWUbA7IbxVTdUKkl L671JJwoIuX7JCCkouHb Y7RuFLAicXrhKzS3m4Y1 Mm1FJLRyJM32DQJ4 lKT4PY38VD18Z9NpMvrq dGFibGU+PHRhYmxlIHdp ZHRoPScxMDAlJyBzdHls OU3lVs2dUGDbVCRh pUzzkDMvMfDnr3dhZFKa TBkeKE6iwQxzE0TumNZ4 LEXhu1d6Kl38B62yD4Bd dXA+LIWdbZO7ySB6 wZ6zKiHcLfU3TOtnC748 EnAakFAlNbvcm9dkw7pf nNu8VjC4OTPnjnAwiGea WJO8u3HeLe52U98o IHdpZHRoPSIxNSUiIHZh oFluoh9mmO8uYw3+PGNv aMN6uVQ5pM3oGaAmDvJ1 BGxfH340MuBxqKSo Pliwh7fdu5ggnLg5GuNx YUTqvyLttNglKFX7e7Ss Km65B6MgxOhoc3VqKke8 cr08oINty3Z3pBH5 Z8NaEDRzjgsiwLFsoGxs ZX0fPYWgaojnFSNffS6u MVTjE9n1AwNmWjX7EQpp S6EkftP6HREazSVu VPrqQBK0I86rc4C9VWMc QWDhROT9yDN6lA5eqFfa bjogbGVmdDsgdmVydGlj SYmhMGraJ993BSNh tDivYJHkaC2vUQAocLJe xTqsXW5lDBBlekhmGoQX K5AUA16LWLXNN5FXMdVe ZXkZUD66K6CaGay7 YZXcsItdES6mfSQzOTdw Fm7poDqubFieBT8kAWAd nuenLZGrpV0nFNVqrACl iAtwET4jCMCfinde s444HjYmVTF7SNLdfQKu J1VhnW8fAvXdZQDuQNXq Y8KqwUNtIUrrX514RCpt ObR2NIZynsLfM7Ci GKUogVqgIuI2i9L5Vc2z GH1rWe7yBFV1CU22MU40 qVPod3X1eRK9T6TeAIUs depxokyxhUV6YZJs OUKxcK35lGJiMPxgGi8c f5H8w334OSArSAArlF94 Zy9laHexSDPwzXWMjA8m wekbp2anthgvQjKq SUKrGRx8NTf2LIAdcCtw VeFfCMK7SfD2SVN3kGWl vF5ldZmoxhqodB9hBai+ ZMVsLODcvzA1I8Iq Tbc6OCSvzLxuFY8vjHVb LSbaUa3kyNptbRguVD9z LKPaycrqGPQcfT2fPGJq rZCoqXsbYC3sJQHf gcfeb369ZkJdBRF1WCHq zNVaM0YbmI6pRfLfOFFw APCpI3ZvzVIjMDhtH170 EVfmMgD4ZVMieoZv B3EjJVAqjRjeNfE9q7K1 Ri3WOEfUHD93KG77lVOp g1T1tGW8T1VyBEVcngpq vthdzJV4VLTzKVTy nI89tPVqKIgyHk1zz7W6 d852CAXyIEDlwS28Fm1a pCydIPSmuGVBsU6mbizt g3vifegrSuIyVJNy XVk0ZMe5AEGywJieLtRy RSR5VrL7XQQ4hLKrdL3d sIhaygkjuB6eTep+T1A8 H3OyFbcgjOR+PC90 TXIfQY08jEAqxEZsk6za aGs2QkGqHFPePPK1iUre ZTyxq8IwXYJzR02teXJq g1A6ZECngNukhGDr RaLuuKJ2qW1uLJbdduua a7ttvxvkJegbj5vrtm32 pR51U63vVAbuRJHiSHXt TQDaROQkeKepgo6n rG2cYw5+JPDbyJY8zRB9 jQ2kEkFnXfL1GTmxP297 DcWvgDQoSpyxe0vuf1uf kLa9DeJpIYShyiYb iStjEIH1a2GxYd26P55l IHdpZHRoPSIyMCUiIHZh iSiaxw6ktZ9qKp9+PC9j t0wuwc45lT82rNU+ ISBuXHU9hJbgSIquWRNu uT2aQEpnTbQ2EGSmLzRn oK57gKYiQTizUp8moJvq qKdyLY7sTZTcisrn q594DyTto8cySWButNVg JFcuSHO8J22qn6L7XGTs BTXqFZN5kOT7tX0wwNwf bjogbGVmdDsgdmVy wPkpHMooRIzjD023LDNy aJhgGaQroHKmS1tsfrXY OC2pKexleXV+PHRkIHN0 hBsjBFuaPGWszM8b KTTdV1u0UvJpMuW3BByv A3FbwhI3QXXydKVpZELw kJFQuP4labqqc3bawpgs SwKjBEVbLTd8YEd6 MKHggAanHqXrHFP6ZmX5 DIC5jPGymL7ueKfvkpya gG9dRnj+RklOOjwvdGQ+ TSPrYTI4kFvzVBbv ZGBlrQ9gNHOpE9k1RdZh CvL7VEtuH5EdjjG1HUUz jSOsWNTvhOYAlW0xxdft c3spddujGtNcQKFf AYr9CJg2ZINcpTgqNgXn WDP8NaL1HRW1sNApfS2p fBektqgsaP1jIoe+TVJO OjwvdGQ+PHRkIHN0 wWrfBUggNFBlhM1hCOEz P0c2CjRaMbL2OXyjE4Lm lvI4XYLisQKdEPCogQKB cS2obrimx2yzjjnz ZcRaQXQkRMv1SSy9OCUk yRmdUuAsEPB1RjX9XGD2 gRIxuI8vsTezrqqvvM6w Oyc+KBN9TEJ1OY52 WK41E2CaKdnzaKEqxKR+ PHRhYmxlIHdpZHRoPScx AETaMuJjpVseJX4iJz9b ZGVyLWNvbGxhcHNl OiB (more content not included)... Normal [facility] Provider Orderson 06-25-2021 Provider Orders [id number] #[id number] Normal [facility] .Auto Diff 106-22-2021 Auto Bowman % 10 % Normal 12 [facility] Comment on above: Performed By: #### 1 [id number], [id number], [id number] ####[facility] (DEFAULT)[address] [place] [address] 35782 Baso Abs# 0.2 x10 Normal 0.0-0.2 [facility] Comment on above: Performed By: #### 1 [id number], [id number], [id number] ####[facility] (DEFAULT)[address] [place] [address] 49412 Basophils/100 WBC (Bld) 1.9 % Normal 0.2-2.0 [facility] Comment on above: Performed By: #### 1 [id number], [id number], [id number] ####[facility] (DEFAULT)[address] [place] [address] 46674 Eos Abs# 0.4 x10 Normal 0.0-0.4 [facility] Comment on above: Performed By: #### 1 [id number], [id number], [id number] ####[facility] (DEFAULT)[address] [place] [address] 03692 Eosinophils/100 WBC (Bld) 4.7 % High 0.9-4.0 [facility] Comment on above: Performed By: #### 1 [id number], [id number], [id number] ####[facility] (DEFAULT)[address] [place] [address] 95217 Lymph Abs# 2.9 x10 Normal 1.3-2.9 [facility] Comment on above: Performed By: #### 1 [id number], [id number], [id number] ####[facility] (DEFAULT)[address] [place] [address] 35215 Lymphocytes/100 WBC (Bld) 33 % Normal 14-48 [facility] Comment on above: Performed By: #### 1 [id number], [id number], [id number] ####[facility] (DEFAULT)[address] [place] [address] Bowman Abs# 0.9 x10 High 0.0-0.8 [facility] Comment on above: Performed By: #### 1 [id number], [id number], [id number] ####[facility] (DEFAULT)[address] [place] [address] 86054 Neut Abs# 4.6 x10 Normal 1.5-9.2 [facility] Comment on above: Performed By: #### 1 [id number], [id number], [id number] ####[facility] (DEFAULT)[address] [place] [address] 31906 Neutrophils/100 WBC (Bld) 50 % Normal 44-88 [facility] Comment on above: Performed By: #### 1 [id number], [id number], [id number] ####[facility] (DEFAULT)[address] [place] [address] CBC w/ Auto Diffon 1 Erythrocyte distribution width (RBC) [Ratio] 13.2 % Normal 11.5-15.0 [facility] Comment on above: Performed By: #### 1 [id number], [id number], [id number] ####[facility] (DEFAULT)[address] [place] [address] Hematocrit (Bld) [Volume fraction] 45.3 % Normal 34.8-51.9 [facility] Comment on above: Performed By: #### 1 [id number], [id number], [id number] ####[facility] (DEFAULT)[address] [place] [address] Hemoglobin (Bld) [Mass/Vol] 14.9 g/dL Normal 11.8-17.7 [facility] Comment on above: Performed By: #### 1 [id number], [id number], [id number] ####[facility] (DEFAULT)[address] [place] [address] Instr WBC 9.0 x10 Invalid Interpretation Code [facility] Comment on above: Performed By: #### 1 [id number], [id number], [id number] ####[facility] (DEFAULT)[address] [place] [address] Man Diff? Auto Normal [facility] Comment on above: Performed By: #### 1 [id number], [id number], [id number] ####[facility] (DEFAULT)[address] [place] [address] MCH (RBC) [Entitic mass] 31 pg Normal 24-34 [facility] Comment on above: Performed By: #### 1 [id number], [id number], [id number] ####[facility] (DEFAULT)[address] [place] [address] MCHC (RBC) [Mass/Vol] 33 g/dL Normal 26-37 [facility] Comment on above: Performed By: #### 1 [id number], [id number], [id number] ####[facility] (DEFAULT)[address] [place] [address] MCV (RBC) [Entitic vol] 95 fL Normal 81-100 [facility] Comment on above: Performed By: #### 1 [id number], [id number], [id number] ####[facility] (DEFAULT)[address] [place] [address] Platelet 295 x10 Normal 138-427 [facility] Comment on above: Performed By: #### 1 [id number], [id number], [id number] ####[facility] (DEFAULT)[address] [place] [address] 17794 Platelet mean volume (Bld) [Entitic vol] 9.1 fL Normal 6.3-10.2 [facility] Comment on above: Performed By: #### 1 [id number], [id number], [id number] ####[facility] (DEFAULT)[address] [place] [address] RBC 4.78 x10 Normal 3.70-5.30 [facility] Comment on above: Performed By: #### 1 [id number], [id number], [id number] ####[facility] (DEFAULT)[address] [place] [address] 57949 WBC 9.0 x10 Normal 3.5-10.5 [facility] Comment on above: Performed By: #### 1 [id number], [id number], [id number] ####[facility] (DEFAULT)[address] [place] [address] 38743 TSH w/ Reflex to FT4on 06-22 TSH Qn 2.41 m[IU]/L Normal 0.45-5.33 [facility] Comment on above: Result Comment: Gene ral Population (males and non- females, aged 21-88) 0.45 - 5.33 Females, 1st Trimester 0.05 - 3.70 Females, 2nd Trimester 0.31 - 4.35 Females, 3rd Trimester 0.41 - 5.18 Performed By: #### 1 [id number], [id number], [id number] ####[facility] (DEFAULT)[address] [place] [address] 85082 US Carotid Duplex Bilateralo n 06-22-2021 US Carotid Duplex Bilateral DUPLEX ULTRASOUND EXAMINATION OF THE CAROTID ARTERIES. COMPARISON: None. HISTORY / INDICATIONS: Evaluate for carotid stenosis TECHNIQUE: Bilateral common carotid arteries, extracranial internal and external carotid arteries are evaluated with hogan-scale imaging, color Doppler, and spectral analysis according to a standard protocol. ICA-CCA ratios are calculated with product sales representative peak-systolic velocities and recorded. Vertebral [...] Jules Tilley 06/22/21 2:18 pm Technologist: DIANE [facility] XR Chest 2 Viewson XR Chest [...] MD 06/22/21 3:55 pm Technologist: SE KATHY [facility] Coding Summaryon 05-23-2021 Coding Summary HTMLBase 64 QjmslvkzAQj3sCe+PGhl YWQ+JD9NKNQhY52zkUZk jI0QG5rPBL3XSBWEVJOR LF7SKG9xqCC5MHyeZ3Tx biAv KefswROoGW70FKy0HBU7 qRsgENsauH3xpQJgE1w3 FzNyMN42qU86AJacXMWl KjC2MfImiwtusDDv K3zzBmSsbEWxDyu+PHRh YmxlIHdpZHRoPScxMDAl VtVyjQtsET8uFw5pLIOi LWNvbGxhcHNlOiBj a6kaEOGlNHdpYZ9qfIlv E6CiiFN9VCWut1c8Cp63 dHI+UFYiCRT8sGakKEml c271GkYtk1klKFQ5 jDRwWBidUBE8U41qz6X9 SIBlXSVpGDV3hSU5pM0r hZdrhwkuF0OzqGWyUuI6 UAQ3sYDrzJ2pxHij dzcedR9yFgy+G70FDM0J KZGHKI1SShh6Z0KsKszc dHI+CQ14UBKgUG93yLNv aDRil3vceUg1PkVw DQGrWJG3tZzcXAqmk1Wt GORuW02hbLVkh4K8UIYc vGiulKDnEpSrsLS7wD6r DSlygnphv9jlubui Usaqa0umuj86bZ16F14h UBrqJXAuMIH9ZOCgZGKu yBgizb0sbG6nQz8+IDxj l3lbp8jwpIv6RrMe OLJfaxGzeCtoCFR8b5Tl Uy59C9AgqNdzi7GtKug9 iq71gTRfj0J5nQC8PVog VUDatU6rCCurLsU6 XPAlHuNvhI92cKHlHTmk Yh6iqJimhSydDS7gVLKr gfloWNKgsG4rHJWeqUKv dReeFB2zPZNurlhs x948RrVoLPF7IDGhaBKh V3LxlT3wMxUuFZVwSVGp F9YonZImYYabV619QWku LoH7IWGtjhLxA1Tx MIXhcSpbUoH5f2W0Ij3Z p3SccwtxURF7BTffXSL4 VnM0WtNrLcA1W9FzEtn7 QAYmeDqgZI5fI0Re MNLhbkdgklhzfUH6KSYy RSVdxE09vPUnVSjxVo1d h4F6i833WPHcPPRopQ43 Xi6bpBweUVQkmEMZ wK5ekkjav2jazshfSyOd KVBlHGn4FZf6DOQkrFra ImXpMPM7CqE4MZT8dCCb qV9rfZvdvzcgjJ9j Oyc+Y41ubD8dOWS4TFT0 yhwgSOBnzzHvVL23OH11 D4BvAzkqtBGhtHX+PGRp veMrdCmlED5dWfEf x8srq3NrXIrtQ3QqRPCe JSreBat8ABAbTAS2bTS0 wL3lFSUzKLkwb1O2fMW8 I7NozsRkhl9bt7vc SDYyMLmaV41eaRXwu9I7 LWRijDV6ZEIhkFadGkOo eH58Ksr+QXZhhIykn6Wl Mzydm7tvc1pbdVo5 IjMwJSIgdmFsaWduPSJ0 h3LzOq25D94uJKrpXMMs WWTcCKUgGMLipHmaro5h nY1eBo0+PGNvbCB3 xKR9gZ0nXDLuQiI1QKfp I658GaTqzJPgRgtfb6gd r0azvVw6PqDtONXahbJe gHtlMNK1y3DgCx90 H51jQTmwJEIaFCWnZAJg MAZooQkaxx7xcH2lIg6+ BV8od6gdln47vL94xHF+ OETjQZB4xTdfFZhi LIDpeA4qUTzbKaN4NKPn SwNliO69yTEwKNhkBe4r qEzkuZnhWM1vSIDaupeu w964LlFzn9vtQOKt mGJfJNmuLKH5V92hz1Z1 UPLfZTRzUHB5zPC5uX6x bGlnbjogbGVmdDsgdmVy vPpdJYjwHKvbT940 IHRvcDsnPlBhdGllbnQg ZiLlISz7W9DdVnk1KWPg kEiqBQ1loQIzWFrhDs7l xBprzTwdBA8zBHUg xufrk530UuNgx9vlVLHu rDWtFSfxPVH0V47el7D2 KVEwAERwDNA0sGI2rI5v bGlnbjogbGVmdDsg acXudHnrIIqmBCouS224 IHRvcDsnPkJpcnRoIERh mCZ8YK65WG84tPFht8X7 sXP2P6BsIKLhqqda oanucNV7DGUtDVNquX55 Es0qoUcxLl0xPBLvSKK9 KBGzlOHmK6UfyC1uWhRq WXVfKDYsZ5FfoPAc GGcxF951PCneAbW1OWDe duGvV7SpVANilIpfZrO0 n6T5Zk2LH4Q7DL85OP85 jFRts4H0zWL1N2Dt UOInrghsxwhjcTF0YCZw MFIxeZ85Tc7wuWuvCh2g UXMjFAR5ARBslIPrY0Uh dQ8gHcZeNTLwBAJb V1ZgxQQmCSrgO865YRln MmM5XNNkjaEbF9UgNIYz yVhmIfD6w8V8Vr7WXIt3 JW51OM05xXPho2Q2 wIY5G9OoALGmfiblkrls lPI0JWDlJRLqxV71Yt3c qFgrRt8xHZLaJQI6QOVt yEVbX6JyvP3mZrEr GOYkERVlS0RttTAuHOca S971QCghTuZ7OVHfwbTl N2NpWFUybFmeCrN2c8R4 Dp6KMEQgBS59GIZ1 qWE6DA85NL71M6CrIxkl dGFibGU+PHRhYmxlIHdp ZHRoPScxMDAlJyBzdHls ZN4sCm7rUJXaQGQf cRfexLBfYmMmx5klQUQw AQugSY3ojYzoL8CuuTX5 TMSsz8m2Zp73E92iR8Ww dXA+TKTugYJ7fMN1 lC3iMbJsFfV5KVddU236 XxJrqVMtQadiz5riz9ao gGd3BjP0FQGrzuOdiFpk CWY9t8EwAk18O98c IHdpZHRoPSIxNSUiIHZh uDfzup1lzE7rLt1+PGNv iDY1kGV6qL0oEwArTpQ6 BDtwF750FfDgzDTy Jadtm9ccf0mwsIc8ZgIm PTNfdfLwlQwpYFV3g7Wh Za50Q7QqcRnzf4IaLei5 rs12pOCng9U3xZM2 Y3HdFUEoovvszBSoeQcy SG8lPVVchpcgTBQmqB1o XRBcB4j3LgRaNqB0LJeq X7DiraV5KJZicXWj XCazPKC8S88tj2I5MTMi ZOEdOLT8cLP8bR1ikYbv bjogbGVmdDsgdmVydGlj QYlqRHvpD099HLDb vZblPOKybX0dSWNafPOs jFqxLH0yZTBjtkgnTyOC B6DER59VDCITF2NVMuCb XPyJPP53I5CiCku6 IXQucAcpMT2mgVUzBAvw Cp1pxUaceMmdTX6iEDRw nxruCIUqlT9vMAUwxQGt aVzxPR2jNXPmdkrd f038ObGbHOU4FAPjbQAe N2SnzU5rMdRnLWAjRNWr P5AqaGFgOFhkG695PLww ViE7DYXsqxOlA1Zr QVDeiUzqZaV5j9N1Vb9h HI4fNj0oLNT7MW77IL13 iBIyt5M7cIU0U6YuAYAp rlabdlsmuML1VHTf SDNpgA65lUGoNOgoIe0q y7X5i062ZWVhBZUypM11 Ay3bkWrySKAgdFYUgY6r lupwl0tkbcajVxDn HRTcVOj5NTa0SHVyqPhu LgPoYRJ1WrT8DLV1bPLk lT6umOjewcguoQ3uKfq+ WPUdPJYdymG5O4Tc Qmw2NMMpiYykRH3ubZRc XOtgJh4yuArkfVewGZ4b OHIjeiavLLVohH2lUWSi vKTgsIymFA3iPMKv jixzw854VgGkBMB1LOAl lFEnH0DldX5kPdHyCBSq APMaE2RlsWJrDMthZ407 RAlqNcW6PCJhltLe B0XqLCNdsXyyMzR5o5D9 Zp5FARdLTT23HA73eBYy b4Z2cSY1R1MsMGFczpwi susblGD4OSTtGVBe jW35vBJoNHepGg4uj1B0 y095LIHmTYFldH88Ec2d uSbqMINudQJCeT4tvimd d2ryyyfpEpVzKGEk SHv6CMd9CYKemDrlQdEj FWW3ZzS2DOV3kYNidV5p cNstqccqtB0aEun+UmVj yWOljW1vBK36eINs kCetppG8X7DmHziguBH+ PK12EXRrPJ00oKQdtEMr i6bgmRb5NzErMPGpVLH7 cHmwHQkkv9LbMJLp A14bgWEyw8W6JILsaQvv lVMtIuKcsFX4iJ6rQXpt aqurb1otzzlvOvhda4vk sr12mZ62X04mQXpj ZHRoPSIzMCUiIHZhbGln kl2zwK8zYe9+PGNvbCB3 cTX4dO4vQcLlOkB8YIyb W768NhSfaHYmBvko p5qpf9dxuGv3FwVbUMMo wlSehQfmXNX4q2MhPv31 E26vVIssTJCqRLTfRVRd OUZejPciuy5zaJ4w Ii8+XM1vs9dgcs91vI25 dHI+PABdCVY6iDsdUMxh NECgfP4wERqtPdO8ISOv YgOcfO91yOIcYZvx Kg7yeDtjmWrrDU9bEFSy ukbkv200PaVog2rmBMYl vEYfFFctKQH8T32zg0O0 UTOuPGLnGXC4zYW0 oL3brXwjutwcbWXibXdu wfPaxXpxZRwuTWznR475 XVBppUawNxAttNZuN1oh skQEFH1rXolqpLC+ TWByINN0mYstCBxgSMUj hN3rCVMtF3y4RoEkNmF3 COfgZ6VadoX5XNYhsRKp KHDugZHWyJ3zrqef v0wmzsgdKvJbGSBtTGo6 IKz2AVYizFwiDqVqSGZ0 EtT4HBK4fMJmrP0akWbm emuaxZ5vLha+RklO OjwvdGQ+FKNmGKK6hZkb DKhmJHKxlF7uMFAdS9p2 HxJuVlX4YEhiR1QgkvE0 IGJvbGQgMTBwdCBU pX7csiudz9cimasgSsVi BVWwNGz8SGa9BORvcJia QbSnLSG8WoE0ZUO2eWHx oX8bhKbpgougdV3f Oyc+TVJOOjwvdGQ+PHRk DNQ6lNtmIWovGWIinW6v JHIjN6o9TfIrXkU7WOsv J1FcbuL6NBJtoRTr CBOxrABOhT4lgehil7dh otcjTlWfYWOwSDo1ZBu6 KIZweOjmPtMqYJJ4BdI8 PDC3oWFdxN2jkVcx kbnfoJ7uHqt+TWN0ZHM3 BW38JO44N2NpNfytbKVq bGU+PHRhYmxlIHdpZHRo PScxMDAlJyBzdHls ZT0 (more content not included)... [facility] Ord[facility] 05-17-2021 Provider Orders [id number] #[id number] [facility] Coding Summaryon 04-27-2021 Coding Summary HTMLBase 64 XdcjclnnUJl4bGi+PGhl YWQ+HX0IRZNqH73kyFOv oR2WY6uIZA2XGKSOWNRM MY1DST5uwHT3RXboQ9Gb biAv IwdrqTAnPI62CYy7RBR5 hJkuLPiuwZ3luJBvX3r9 JyJwKG96nZ73SOibYENm VzW7DzWueemhdSMb L1prLhVasIPnAas+PHRh YmxlIHdpZHRoPScxMDAl UbVsmLhhCH1uJm5hRNLu LWNvbGxhcHNlOiBj l1hvEPBmGLnjNM0hpUhx C8XgbUQ3VZHro9o1Rp45 dHI+LURkKQY3qZxoFCnj x873CcXal9vwTCJ9 cKPhVKpnTEU5B97ql7F9 NSDeGWNuSPU1nXD1cG0c mOhrivahY4PgbFCwLjP6 TTZ4oFRfrE3nhIeu rnynoC2lXkd+G36LCM1S WYEGAT4AUop1U2LhKyfc dHI+OR29FEUrVQ74zPAq tXOgb7uwiBe1BzEv TKVeHMP8fGbyRRjif8Mv PPRmZ01osVHdx4P2YHLt uXmftKEsGyZpqRY3gP6z MTtbcqmrn3ctqvty Vpmpt1wgok89xX89C91s HCteFUMqBVR1DQLaVBNy rIywjc5keA8oVn1+IDxj k9tew3ushDs8MfGv KRKaksIiuFngHRQ4q8Ik Eq18O2MxlGfgr4VlYsb8 xe09yVTey8M6tXP9ZAgo YEBirE1vRFswZjM2 ZHBvLrZotE36pQEbBJqt Yr3qtObogBgjQG5jHSSi sptpODLgsS7zXUEpnRFh kJjmJN9oZNZhrfdb b260NrIqXDT1HZEprLHc K4AtuG0yRrUhXJZjRJUb Y6RujQDvQLdcS440ANpm DkB6QQTkqsWnZ8Pj ZHPwzJiuEhJ4r4S3Gw7N s9UmzorlTSI0MGonSGB9 RcU7JhJiDkG5T5KbUki7 OUYdbKozTC7qW0Uv KBJarzuegxqtfMA8CRYi JVTthJ38dKYbPWzxVq2o p2W5m152SSCcSIBxjR72 Ky7raWeoCNObrFCD cY3cnyhib3xyjasjTjZb NERxCQh5LLz7CCSiiXuj VsGrMHV1QwR5DBG2lOKs oL1mgQlrfltueY6i Oyc+U29fdO0rTJY1JHM0 ctucYHHqgqXnGZ42UF17 G7CgKcexsQCdvFK+PGRp ekJnfUuyQI8qEzUc c2faj7UtZIkhM5TqWPWp QMunMgo4RPVkVET1lKK0 yA4uEEWgWGxmj8U8vPD0 V3GueaZiqr1bs9hk ZWIfZTqhF85avPBxb5Q2 TOZltKJ2OWUpiHkyZxXy uS31Qvi+GAWvkNbsj2Ec Znoic1fnp3lblNi1 IjMwJSIgdmFsaWduPSJ0 o1ZbEg10G79iJUrbGKKa JLDlISXwUOAnlPmrua3e lK2nFn0+PGNvbCB3 aYV0fU6lVZBbOnK7TRbb G633OkIwjBNcOuejx2wh e0wftQj1ElHmJWKcfqRs qYypNNI3x6EkIs89 V98qHTktBERvWBMvGXHt YFQqtWkuci5igL8eMt5+ SZ3kq3lavj22wX73lXT+ UVTpGGT6gAiyGMjs JWHvnJ4fLAxxUdE9DSUr UyHoaE20bJZnTBwfPm4y gSftpHrwML3tPTOxfdkx x894TmIoj7fzZSKo bPHiJMhhAWR1E91ps2I0 UQPtAZPcLZF4eLK3qD3i bGlnbjogbGVmdDsgdmVy uDirZRarURwzQ414 IHRvcDsnPlBhdGllbnQg VkIiZEy8G6WxHlv8RARo lRrdJL9suJCeJOdpBj3f qViqyMsqFH2qPFUx lqvwm860TeRut7ccWTTs yRLkFDooSXM6X55sq8I1 AYCcBXXfVGN8hWP1cK1s bGlnbjogbGVmdDsg krCbiGhpXUqtGOnbV168 IHRvcDsnPkJpcnRoIERh uAM7CQ92RD47tDJkb4T0 gUL9P8ToOXMvuiov kpdziYS8NJBdUMYgnY05 Sk5tsDvcVh8uXFTrPCW3 UVCuqHRlH3RxnJ1wLoRn HKPwGDWxJ5TtvNYa SCkkG456ERobRvJ4NOBc ohDpM6LpEPXgoVcqMoY7 f7T8Av6CX0E6JN76HF78 bPXun9F4mAG3V2Vu QHZnuqwimubtdHR8ZRMa VMIfrS96Mz1qxXqbBv2n FZQxVPH7WUGgwDGiP9Mt fO5hWcOeQUHuZEKh M9PcuZCdCQebQ771QXps OyA0QMWnbyEaK8TiTHOx bTujLpV4a6O2Ce2EAGt4 MK08DE05yXDrw2H1 aFD8K9HlUFJdmgkcfsja yPI0SNSsLMOqeE15Eu7i gVzkPj7jNGJwEPX9IRYd jFApX3NssS7gQmHb ITTtJRLrW0EswMZkNUcm L112YPjrCwW4GECfewJk V9LbVWTlyRtmAjZ6y4L8 Lp7IMOMeTZ26CCV8 nZY6KG97RG34C9DrKmqe dGFibGU+PHRhYmxlIHdp ZHRoPScxMDAlJyBzdHls LV7kYt7dHPZtYOXl nIeyvAPoVxYkq3wtDMYx JJzuVA7evNwpA4RfgGB8 SESvk5c1Du88R99nK5Dm dXA+GORmuBK7tRH6 bJ9xOnZcMrV4EHhhL222 NgXrpFMbIjbwl6sfl7je iYv4RwE0UVWzbhKlsMtl GIQ5u8FrTd01E90x IHdpZHRoPSIxNSUiIHZh zFeuzc6tsX9eIg6+PGNv vDZ9nER5jN7cUeLxMoI1 IOmeM608OfPddHGl Cvihb2ljf2bxwXr3SxYy CTGrkyXvnRzzENG3c1Xe Qu12Y4HtaAmlz1MzMlh2 yb87mGPtx3R3wGD1 D1TbETAhbpzlkIDnkEfs KZ9pXEImqudqLKDigE3z ECRtT0h6MxPsGuE9RYlo V0QhloZ1GQVuyOAq KNmkYRI2J30lo1I9DAZw HBLxEDW9wWB5kN9iwOtb bjogbGVmdDsgdmVydGlj FNidGFizJ012LYZm bTaaVYIzeA9rFAQzcIRh oZzlJS4kRNAtqiexHkBK A3QDV39RPSENC5CXElLm TIfVUY16C9ArCyj5 VEJvwBfcLS9xvMCzSQto Lp4ftQdttDkxYK6dYFUz hwjxVVAumJ5fVSSilIKb hCfiOG0iVHOipqyp p661PfAdLOU8GKHgcFVv F2CpwE3qGgFhYZBhUFXz X6SsiOUdWZagA271RWuf QzI5TPUaduFcB5Br HAVprNkmTqO5x6B9Qi8n MW6nIi1qYUA3LU21ZE17 aVMpq8U6zIH9N1EyXTYj nkldqbkkhQI9RWRh EJRfyG05cVBhXWxxOe3k c3L1b628EHYyCADplD53 Du1edPxoKTJvgYSCrK5b dulre8smlrgdBaAh YUCjKNq3AFu3LRWauFpu LkCjCIN1MrQ6DKV7eVOo hQ6tzMkaknuczV8fGuh+ JYMuUICviiV8S0Uo Xbm3FXDqlWvcSN8xiPWj PTphRc9auRxgyGweSU8f QEZrxqdmQKPhoY9xFMLa lEUnuKxqML3pLAPe bvygs172AeCoTFP8WNIw nXBuV2PqgC8wSoQjBUKo XLDeV8TfqMLcHOcjI463 AWglEgF9TCXejqIm A6QlCYZfyCpiYfK0d4B4 Rj8NNLgGAR78SW13sWCa e9W0tWR0D8AqBZDfvdgp bsqnsQF2DDJeBVOc cW74gFFkUYfwWo5zk4P3 z506EGGdTNVmuJ66Kq9k tOzcJZRlkFPVxZ2hjsvb f9bmttzxUsEqYODr VSc2KYk8NVFnkGllNzLg MQL6HrR9ORM9yOAnaE4o vHdldaodpS5aRle+T1A8 Z8MvRafnuZE+PC90 MTVnNC09gDBcfVPnk4ux qKw9DzPaOWQvVDI0cOer IUrxx3WdHETgY38mzRAf j6R1PLSpoPmbuAXp OjIhrDX6hG8tWNrgnzfp p6qsrierBuuou9erkx13 tD19U93bDDtkNAVxIDHm EYKnORQwnScezs4t cK8mSa7+IGMqyCM5uBD1 xV3bUoQsExQ7HKwyC943 OrIcyCSjIchij3dyr1jd aNi5KnMfJXJazqKg hEshYHM7x4HaCw25O43h IHdpZHRoPSIyMCUiIHZh vTalef8zcD5dGo3+PC9j c2jipo55mZ63lUI+ JIWjAQX4rThgFClgNYVl dV4bTWvsZjX4MZDwTqWr zD19zJEqJReeHt7ugOwp tScqEO4aVUHpvrju b475YhVyq9yoPAUkhSNi CBvrAJJ4M85md2S3KGTq SXLnEGF3pXQ3lR2jpOdc bjogbGVmdDsgdmVy zVctLOalAUynN928HDBg xOqcMjNyiHLkH8lxqjUN DE4eJnywlFD+PHRkIHN0 sRoiZMdoXHRkfR2p AQGzB9i1HyPpAlH0EIkh Q6OhtnC5PYVaqPWcUJQe iDKUoA2azzyxz5ysppjz OuAdABLiRWn3KKv4 SFWkrVflYjGcDPS7AdZ1 BKA4pMBypY2gwZpuxlpt bM5kVve+RklOOjwvdGQ+ GAIrFXJ7vTchUWty ADRkuX4hSLYjF3w6UjOf HuS7BCunX4JyzbC5ZCYx uLGiKRRddLFBaA3rnacg c9bbcjsjUlQwRBJg ADw8BAx2GGVlhGfgQrMc ASI8HxC0MIT9aRYrqL7f rRbmsykujZ3nIge+TVJO OjwvdGQ+PHRkIHN0 tNcuLKplLHQsmL6iILEl G3j4UkPyTrA9SVbeD0Xr kyN4PJQpdBZxTWQwzPPJ tW9xaijfs6cyexgt VbAeQHEbDIa7QWf8OIPh uXrsQkPoNWB9RkL9YBW8 iTHuuK6fyCmcadqnxB2q Oyc+WJN1NPK1RJ60 CK88R7MwMycenUXyhAB+ PHRhYmxlIHdpZHRoPScx APAcOfIyfEwlTJ7vNf7n ZGVyLWNvbGxhcHNl OiB (more content not included)... [facility] Coding Summaryon 04-06-2021 Coding Summary HTMLBase 64 SdjqyxxlDVi6dGl+PGhl YWQ+YW0RVMYwD78ftFFr zK1HW7jPHJ7NPHCNTGSX YO0WES4qkCX3HVrqK8Yj biAv UotzjMPuVL16FDq3WKR2 jJzyCZohzM2zkCNvG9x9 WpIuJY62hL10ARjaCQRh YaU8OyThvmqepMNo K6caMiYneGLaTnp+PHRh YmxlIHdpZHRoPScxMDAl WkDiyUalSV0bVd2oBUXq LWNvbGxhcHNlOiBj j4fbMUAgECnlGB5vrUzf J0TtmVX4IHEfu9f5Ar31 dHI+XRTbSCW4kGpdKBfg d031XaBdj8nhEWU2 lCXzXGnhZJZ7X19ix5P9 VIQgFLPmKON6mPJ2hM7y uYumcqekO3BenJLhFgH5 QVV7hOAzwZ0ieTkq nszsmA7vTlx+T57DQX7A VSUMZY6WLzo8B2ZfXjyx dHI+TT71FFGgFF24qUNf zKMfz7ebcUb1SzVh CKVwFRB9hQmhFUxiy5Dt AQOgL99vyUPjy9P6ULGv kLesuLCqFcSpkJZ8oY2h XGuzwjfwb0dkqwqi Nhkja8pawf30cQ57R21z NCtrBNAgYPC5MOVtPTRv sJrhuq4pvL6mWk8+IDxj m4fbl7ukoTa5GbHm KUDgeaGwfXqnJNU2l2Aq Tk10R1FybBmpe3QhCig9 ul21rGJau5N9sNX1JVkf XLGtxD9lNRpbQsW5 CVInTiUbfK11gQJsNKci Zh0heVfccXtvCH2nHOAq iqwiDDUxoT7wIVRycADq hHmlCS0uMHWoynek k725ZyGnVTJ7IEIphRSz N8IatR7oAsXpULHkJTRi E0TmaCOqFZjgR420OIqj JqM8NNWvrpDwR8Oz BBPtgQmgCkN7x7F7Kc6G h7NadverLZC3FLfoVZG3 JuA8TjBbOrS7T9ZwXez6 NVNwdWkvPJ4uQ6Rs SIVwmsqwrbhycPW1TNIw VSXwcK89aKAwOEhnIf4u c1B8u630PINhLXOuvN73 Rl7ozWpjCBTnfKEV tO9zpjmyc2mzxkhyBmTl OTGzKAx0JJe8WMVirMip SfOdMET5EdI8PJR4yOIw yV2peDrqqtrksY9o Oyc+B97lwU4sNXF1AHR9 qksbTHUfytTfYU61LH61 M2ByVxyuxYVuyRP+PGRp zdGzaBneKR0zRmQg g7mdo5ZpBKkmP8GcFKIv BBklUrx4OOFfXSC5lLF4 pC7rMINvKHjzu8Z9mBM6 T7MbpzYpzb6ep0rn CFSuNBtiO77baRSvm1V2 QBCadFX3WALsmHppViHv xE09Emu+ZVYavYepb1Sq Pxkws4wvu8xvjXl1 IjMwJSIgdmFsaWduPSJ0 m5OiTs77X10kOYnaZBGf BYVdMCYoYLLhcNldoy1k cD2jKt0+PGNvbCB3 tMI5qX4aYUFiXvW7YOhe U089UePalGVoHpuyk7ta j0vkkGd8XsXbLKVniiDh lRgtMFJ4p5YaAz72 F83lMDfyVWYfEOMrJLSz HZVfzZdqwi7vsT0qOk0+ HS6oe9ntre79fR08yRB+ CXVbETU3kPfnQJas HLFkkJ0bAWxnLmZ7AFRb LdWuhR45wQVbQTxzJb7c dBexmSgnLC0mTYUscudx u538UsFti6ntVLFe wBMdHTtxTPP4R00lq6G2 XKTaVNKxNSI1qFB5iN5f bGlnbjogbGVmdDsgdmVy gWvfMPwlZKsbO393 IHRvcDsnPlBhdGllbnQg IkQiEXc6U1BcLsb8OKUo nAdhTH1hoJAgQGdrWt3v cTmtpApiIN9gKGWp tntzn761CsGzp5iwBOXc xSRbUDmwALI7L45yo2X3 OCJvOGZkEDJ8lZF7lD9r bGlnbjogbGVmdDsg osVduVogFPthMLsmB099 IHRvcDsnPkJpcnRoIERh gBX9BR03RW94nGRpz5Q5 lYM8Q5NqOBXidrqk vqgkeIT4HVEgOQJoiC43 Pp0msYdaIp6rYDKwRPH0 SFJguAVgF6HqoL8nKvPw IZGeVDBbO7VtsDLm GTutY479OJamJcN0IXAf wtSkU2AnUPDjuVttNpY2 b9A6Nf6BB1R8NU81KJ59 zTOrd3M7yUH4F9Wz ARZfvvppsghefNQ8YNZi UKTlpK25Zg4tmYwlAz5p FZVaXKF2VDKxpOPgE8Jg iW8yRuPnBBTzRMIs O0ZryPFhHJcvX067XNjs JyD2TSChpjKkV6OlZNYc wDxdPaP1f8Y3Qz6LRWu8 ZM93QD60jAXon9G0 gCU5P3XjWPDvitpvcxur pFY3ILWzNKDtmF07Jn0o pExkEa9wFIYzBLE7ZMWv dWJlW1OcfR2jOtAj CQUcSATaJ0SoaNUgDDmf T049KSpcHfR6WCXhpqVa T7OmTDZemYlzHsL3b5H9 Ib9UYQHvMO59QIZ9 kYP0HJ45LK90G2OvNmke dGFibGU+PHRhYmxlIHdp ZHRoPScxMDAlJyBzdHls RW8dWy9qDXGwEJPr fCxuyBEhMlHbu0dpBVCz TWktRQ5emKvkT6QhtBN1 QHXsl5l2Su97J58lF2Au dXA+QKWznLG7dJM2 iI0kWvMvFdY0URpeU542 KhQquWFkGvrva1cbk6ne cUu7AlL3MHXlphFdoTna OBV8u1PmOt56K44w IHdpZHRoPSIxNSUiIHZh eWpzua1qhD7xVt2+PGNv oXH4tUP4qY8fQrFsCbP6 KImiK865RkFvaNWk Dalmu1sgt0oaaLi6LiHo RLMqzsFpkJguKVD6d1Hf Vc00P3AuvCqfq9IlGql5 kq59eFNjt7Y2iNC6 X1ZtSPTowxopfTTbdBug RO5uLKVapoknBGTgeY8z EWUdZ1l7BtOwDfA0NSqn A4IqbmW6OIVqvRFg RUjhMFQ2T17ve4M7XARm RQNwSCS8nXU2pN0osZgz bjogbGVmdDsgdmVydGlj HQixTMbvU035ANAe iUraUEBuvK7pBCPbxYXy bNnmPA8xWFDocdpjBoEZ A1HPM47SIWAVK0LKQfNm JByAGG91X3RhUjv0 LCUzwDxoLG3ynUVpMZmu Aj5uhNgzmDxmZU5iXZJm ppldSHOkmH0vYIYqaGDa hHemIK9bNILlkrsd f015ImBcMRR6MIElmYBr W4VcrQ2fLhLrJOXzOSEh G0LpaRUxKCtzG432NVmg YxW1MCSoboVkZ7Aq TAUdxIqaIjL0h5I9Tn6f GL5eKj3hGPS2GV77GC30 mRNse2J4rLW4T0TqXWTv koeulfqnhSX8QKIg XLXvyX48mSEzGDfwPp8k d0S5z272QBUiWNYuwP83 Lc1ugZbbMRYeuZXNkJ4a hzmbb5ewjrziLzVq YQYyLGh1XPp5LWMzkZbr HuUkLIU7CqL9BEM4tOFk rH2waYvtncniuF7rUlf+ QTNmFAQfwzE4X5Gf Tuc8APKiiMruGF2stSLs TSpwSm3zaHxchLqdKM6q XWNcbmaeWRTzrG7fAPRy sRIboMwpHT3wEONi ehlve292OqDeRNJ9GBWw sQHbO6KqiG9zMjJkSXMs HWBeN2KniWGbBDpuE845 UZtwBzX1OUEardGc Q1MtHWModLayYxA9z3W5 Hi1KWQzSOV39MB06wNIu x5L8sNT5M7AnQYEajeev lvhmvUA9KKCyBYUt kH17wVSuWCthWb4ms4H9 c262GFSqWJDftO48Zt3p lSqbJOCcmGIHxV9cknsr i2dacxpsHbDqOEPp ZAo4UWm7ULPurWaqVvRm UVE6AmO9YCI0zBEluM8r iMyamaevkT9yTpu+RW1l abwmrcP4CB75OD27 J7PqHhjjnNYacNQ+PHRh YmxlIHdpZHRoPScxMDAl LyMyzNkaLD1eXe4iEIYp LWNvbGxhcHNlOiBj b6feARCzVDduWR2ezRzy F7BnyYF2UJWmo2v6Ss49 I47rR0VdbBI+PGNvbCB3 zIL3jZ1vBgHeMiG1 QFptU678UcCghINeEkjn a3agt2olkDg8VcUzCPCc hbPrbXlcPDY6x6QlRq18 O37vUEfvTQXqJLNf OEQjYOXwnRwutx5lnF1h Ii8+XSWihQH8eII9uV3c VdLlRmD0AZbjI627RdBc pIEjCgjyD04hJ5Ir dXA+PYJdVnj3YAZvjLnt BG4aqCZkECweIf2jSXN7 TsAcPwVeWQomE9IzZVXg ijnqmqrzwKM4DHKp KKDwgD72Xk5igIrwKw4e EQXpQTK4WDFppWUxL3Qc oO9qCkMvUAUbILMyN7Px pPOdQYvgB459NImo BlT7EGZbjjKdN6PpYJDt tNsaZvK2s1O9Er0SbDgg oREqQS6cRoGjVKb8A2Pw Xmj8BSRjuUkgRM7t rPYeSWquBb2kaHaxnCvx AC4wQTMywsyih419JzKs x7ejMXCfvBCaBTzvALG6 D74fl7U2TCEyEXTn QUW0jNI2dX0umHytprru bGVmdDsgdmVydGljYWwt MVmsP513YCLxvUbeYhTF Upr4T9PeVzp7CDEr hDdsRQ3ikDRmHHqoBb2g vVdrtJloGR0dZFJfyyuj e032VtGyn0hbDRKumFCq DKndHRT0Q92jb5I7 JSUfBWBiZYC4bKJ8uU2e bGlnbjogbGVmdDsgdmVy gQrqZFrwQFpvH662TSEi uVehGe5OZwa3X5Rj Lni5FBDdaJljME4cxRTh YHbbXk6zeSdoaHslHX0t HKHcylbab123JbYas7jm IDEwcHQgVGltZXM7 P50ak1H2GSOvWGOiTBS3 nEH5gW6ieBcytcjycSBi dDsgdmVydGljYWwtYWxp A859QRXifHuvTiJr eWVyOjwvdGQ+TP19cu02 U0AxXhtzXku3GPGiAVA5 rKX8dU3bQACfFSrld2U9 nSM4Z3LkbfMfpa5l b2x (more content not included)... Normal [facility] ED Clinical Summaryon 2020 ED Clinical Summary [facility] - Emergency Department [address] [place], [place] [id number] ED Clinical Summary PERSON INFORMATION Name: ROSA EASTMAN Age: 55 Years Sex: MALE : 1965 MRN: Acct#: Visit Reason: Hand pain-swelling; RIGHT WRIST PAIN Arrival: 04/01/2021 19:05:43 Discharge: 04/01/2021 19:35:00 LOS: 000 00:30 Check In: 04/01/2021 19:05:43 Checkout:04/01/2021 19:35:00 Address: [address] [place] [address] PCP: Provider, None PROVIDER INFORMATION Provider Role Assigned Unassigned Kenisha Sahni ED PA 04/01/2021 19:10:19 Shira RN, [facility] [...] Follow-Up: With: Address: When: Andrew Mckenzie DO [address] [place] [address] [id number] Within 3 to 5 days DIAGNOSIS: 1:Sprain of right wrist Patient Understands: Yes - Patient/family/careg iver verbalizes understanding of instructions given Comment: Normal [facility] ED Patient Summaryon 021 ED Patient Summary [facility] - Emergency Department [address] [place] [address] PATIENT DISCHARGE INSTRUCTIONS Patient Information Name: ROSA EASTMAN Age: 55 Years Date of : 1965 Reason For Visit: Hand pain-swelling; RIGHT WRIST PAIN Arrival Time: 04/01/2021 19:05:43 Primary Care Physician: Provider, None Attending Physician: Medhat Hernandez MD Comment: Visit Diagnosis: Diagnoses This Visit Hand pain-swelling ([id number]) Sprain of right wrist (S63.501A) Prescription Information: If you have been given a prescription for narcotics, seek immediate medical attention if you have any difficulty breathing or any sudden status changes such as confusion and sleepiness. If you or anyone you know is experiencing suicidal thoughts, mental health, alcohol and/or drug addiction problems; contact the [facility] 02/06 Crisis Hotline -Text 5SUIC iz 175610. If you received any narcotics, sedation, or [...] documents With: Address: When: Andrew Mckenzie DO [address] [place] [address] Within 3 to 5 days Medication Information: The exam and treatment you received today in the [facility] Emergency Department were for an urgent problem and are not intended as complete care. It is important for you to follow up with a doctor, nurse practitioner, or physician?s social service assistant for ongoing care. If your symptoms [...] so we can reach you if necessary. [facility] Emergency Department has provided you with a complete list of medications post discharge. Please inform your receivables specialist/provider of your visit and for further instruction on these medications. Any specific questions regarding your chronic medications and dosages should be discussed with your primary care physician(s) and/or pharmacist. Medications to Continue That Have Not Changed Other Medications acetaminophen-hydroc odone (hydrocodone-acetami nophen 5 mg-325 mg ([place] 5)) 1 tab(s) Oral Every 6 hours [...] With poor (more content not included)... Normal [facility] Social History Date Type Detail Facility Start: 10-16-2021 End: 01-22-2023 Tobacco smoking status [facility] Smoker (finding) [facility] Start: 1965 Sex Assigned At Male [facility] Sex Assigned At [facility] [employer] Other Vital Signs Date Time Vital Sign Value Performing Clinician Facility 02-20-2023 14:00-0400 Body height 172.72 cm Josué Evangelista Other [facility] Other 02-20-2023 14:00-0400 Body mass index (BMI) [Ratio] 32.08 kg/m2 Josué Evangelista Other [facility] Other 02-20-2023 14:00-0400 Body weight 95.71 kg Josué Evangeilsta Other [facility] Other 02-20-2023 14:00-0400 Diastolic blood pressure 80 mm[Hg] Josué Evangelista Other [facility] Other 02-20-2023 14:00-0400 Systolic blood pressure 130 mm[Hg] Josué Evangelista Other [facility] Other 01-22-2023 09:40-0400 Diastolic blood pressure 84 [...] Body height 172.72 cm Harvey Holt Other [facility] Other 03-13-2022 11:45-0400 Body mass index (BMI) [Ratio] 32.23 kg/m2 Harvey Holt Other [facility] Other 03-13-2022 11:45-0400 Body weight 96.16 kg Harvey Holt Other [facility] Other 01-14-2022 14:30-0500 Body height 172.72 cm Harvey Holt Other [facility] Other 01-14-2022 14:30-0500 Body mass index (BMI) [Ratio] 32.23 kg/m2 Harvey Omaricamilo Other [facility] Other 01-14-2022 14:30-0500 Body weight 96.16 kg Harvey Holt Other [facility] Other 09-19-2021 11:00-0500 Body height 172.72 cm Harvey Holt Other [facility] Other 09-19-2021 11:00-0500 Body mass index (BMI) [Ratio] 32.23 kg/m2 Harvey Holt Other [facility] Other 09-19-2021 11:00-0500 Body weight 96.16 kg Harvey Holt Other [facility] Other 09-19-2021 11:00-0500 Diastolic blood pressure 87 mm[Hg] Harvey Holt Other [facility] Other 09-19-2021 11:00-0500 Systolic blood pressure 130 mm[Hg] Harvey Holt Other [facility] Other Clinical Notes 04-01-2021 to 02-20-2023 Note Date [...] 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 I will see him on an as-needed basis I think he has had a good outcome overall. [facility] Other 05-04-2022 Evaluation note* Encounter Date Diagnosis [...] Cervical spondylosis with myelopathy (ICD-10 - M47.12) [facility] Other 03-29-2022 NoteEducation Materials Neurology Paresthesia Paresthesia [...] or sweet foods. General instructions ? Take vbla-bba-vmndyrj and prescription medicines only as told by [...] provider. Document Revised: 11/22/2019 Document Reviewed: 11/05/2018 [employer] Patient Education ? 2020 [employer]. Orthopedics Cubital Tunnel Syndrome Cubital tunnel syndrome [...] ? Playing contact sports, (more content not included)...[facility] 01-14-2022 Evaluation note* Encounter Date Diagnosis Assessment [...] will see him on an as-needed basis. [facility] Other 11-10-2021 Evaluation note* Encounter Date Diagnosis [...] They understand and would like to proceed [facility] Other 09-27-2021 Note [id number]05-23-2021 NoteEducation Materials Orthopedics Wrist Sprain, Adult [...] health care provider. General instructions ? Take wzhq-ngr-fmabfzi and prescription medicines only as told by [...] provider. Document Revised: 10/09/2018 Document Reviewed: 05/15/2017 [employer] Patient Education ? 2020 [employer] Wrist and Forearm Exercises Ask your health care provider which exercises are safe for you. Do exercises exactly as told by your health care provider and adjust them as directed. It is normal to feel mild stretching, pulling, tightness, or discomfort as you do these exercises. Stop right away if you feel sudden pain or your (more content not included)...[facility] noteNo InformationNort [employer] Other evaluation noteNo assessment information available [facility] Work Phone: History general Narrative - Reported* Type Description Date Surgical History (R) carpal tunnel release Surgical History (R) Ulnar nerve release Surgical History tonsillectomy Hospitalization History See Above [facility] Other Hospital Discharge instructions Additional Instructions Use [...] Any unusual redness or drainage contact the [facility] Work Phone: Summary Purpose Family [...] 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) Referral Organization [facility] urosurgery Referring Provider First Name Harvey Referring Provider Last Name Yanet Referring Provider Specialty Neurosurger y Referred Organization [facility] Referred Provider oJnn Singer Referred Address [address], [place],[address] Referred Provider Specialty Neurology Referral Priority Routine [...] section and content) DATE CREATED AUTHOR 02/16/2022 [facility] DATE CREATED AUTHOR AUTHOR'S ORGANIZ ATION 01/23/2023 [facility] DATE CREATED AUTHOR AUTHOR'S ORGANIZ ATION 03/08/2023 [facility] DATE CREATED AUTHOR AUTHOR'S ORGANIZ ATION 10/18/2023 [facility] DATE CREATED AUTHOR AUTHOR'S ORGANIZ ATION 03/21/2024 [facility] REASON FOR VISIT (unrecogniz ed section and content) Referred Dr. Magaly Medeiros ical Discacdf C3-43 months po ACDFEMG RESULTSright ulnar nerve release4 wk po/ Right ulnar nerve/ [id number] Care Teams (unrecognized sec tion and content) Team Status: Inactive Member Role Status Dates Candida Alexander PA-C Attending Provider Active Britt Penaloza , DO Primary Care Provider Active Team Status: Inactive Member Role Status Dates NON STAFF Primary Care Provider Active Candida Alexander PA-C Attending Provider Active Team Status: Active Member Role Status Dates Britt Penaloza , DO Primary Care Provider Active Team [...] BE BASED ON THE PRIMARY CLINICAL RECORDS. [facility]. provides no warranty or guarantee of the accuracy or completeness of information in this document.
[2024-04-19 09:11] VITALS: BP 129/83; PULSE 72; TEMP 36.8; O2SAT 99
[2024-04-19 09:50] VITALS: BP 144/70; PULSE 73; O2SAT 96
[2024-04-19 09:52] VITALS: BP 142/59; PULSE 68; O2SAT 92
[2024-04-19] MEDS: TRIAMCINOLONE ACETONIDE 40 MG/ML VIAL 80 MG INJ (09:53)
[2024-04-19] MEDS: BUPIVACAINE HCL 0.25% PF 25 MG/10 ML VIAL 4 ML INJ (09:53)
[2024-04-19] MEDS: LIDOCAINE HCL 2% 400 MG/20 ML MDV 8 ML INJ (09:54)
--- NOTE | 2024-04-19 10:06 | P.ON_ITS ---
Date of procedure: 04/19/24 Pre-op diagnosis: Pain due to lumbar spondylosis without myelopathy Post-op diagnosis: same as pre-op Procedure: Procedure: Bilateral L4-5, L5-S1 radiofrequency ablation Medications: Bupivacaine 0.25% 6cc, lidocaine 2% 5cc, kenalog 80mg The patient was seen and examined in the preoperative holding area.? The site was marked.? Written informed consent was obtained and placed on the chart.? The patient was brought to the medical procedure unit and placed in the prone position.? A timeout was completed verifying correct patient, procedure, positioning, and special requirements.? The skin overlying the target points, the designated medial branch, were prepped and draped in the usual sterile fashion.? The target point was achieved with a 20-gauge 15 cm with a 10 mm curved active tip radiofrequency cannula under direct fluoroscopic visualization.? The needle was inserted at level L4 on the right side. Needle tip position was confirmed with lateral fluoroscopic position.? Motor stimulation was carried out at 2 Hz up to 5 volts with the absence of extremity activity.? This was repeated at level L5, S1 on right side.?? Sensory stimulation was carried out.? Concordant pain was realized at the above- mentioned sites.? Then radiofrequency lesioning was carried out times 90 seconds at 80 degrees times 2 lesions at each level.? The radiofrequency probe was removed prior to cannula removal.? The above-mentioned injectate was placed in 1 mL increments.? The needle was removed. The same procedure, with the same steps, was then completed on the left side at the same levels. Insertion sites were covered.? The patient was taken to the postoperative recovery area and monitored for an appropriate length of time before being found suitable for discharge in the company of a responsible adult. Anesthesia: Local Surgeon: Richard Lezama Pathology: none sent Condition: stable Disposition: no change
== END 2024-04-19 10:09 | disposition home or self-care (01) ==
LOC: SURGOUT 08:44
PROVIDERS: PCP Family Medicine; Visit Provider Anesthesiology
DX: M47.816 Spondylosis without myelopathy or radiculopathy, lumbar region (principal)
CPT/HCPCS: 64635; 64636

== ENCOUNTER 2024-05-20 10:55 | Outpatient (OUT) | payer MEDICAID, SELFPAY ==
--- NOTE | 2024-05-20 11:01 | P.CN_ITS ---
Consult Note: HPI Data of Consult Patient: known to practice within the last 3 years Requesting Physician: Wilma Bhardwaj NP Primary Care Provider: Britt Goodman Consult Narrative Reason for consult: f/u Narrative: Homer Eastman a pleasant 58 year old male presents for evaluation and management of chronic low back pain. Patient previously failed 6 weeks of PT/HEP, tylenol, NSAIDs. Patient has a hx of lumbar facet arthropathy, lumbar spondylosis, lumbar stenosis, lumbar DDD. Patient recently underwent bilateral L4-5 L5-S1 facet RFA with significant relief for 3 days, then patient fell. Patient has been having moderate to severe pain since his fall, denies loss of bowel/bladder. Patient reporting sharp burning throbbing low back pain radiating into bilateral buttocks, right leg and right foot. Pain increased with standing walking improved with sitting. Patient feels like his discs are popping. cc:: CC: Wilma Bhardwaj NP Review of Systems ROS Status of ROS 10 or more systems reviewed and unremark able except as noted in history and below Musculoskeletal Reports: back pain and extremity pain PFSH PFSH Medical History (Updated 05/20/24 @ 11:19 by Wilma Bhardwaj NP) Glaucoma ?H40.9 - Unspecified glaucoma (ICD-10) Obesity ?E66.9 - Obesity, unspecified (ICD-10) Smoker ?F17.200 - Nicotine dependence, unspecified, uncomplicated (ICD-10) Low back pain ?M54.50 - Low back pain, unspecified (ICD-10) Neck pain ?M54.2 - Cervicalgia (ICD-10) Osteoarthritis ?M19.90 - Unspecified osteoarthritis, unspecified site (ICD-10) Bipolar depression ?F31.9 - Bipolar disorder, unspecified (ICD-10) Carpal tunnel syndrome ?G56.00 - Carpal tunnel syndrome, unspecified upper limb (ICD-10) Chronic GERD ?K21.9 - Gastro-esophageal reflux disease without esophagitis (ICD-10) Acid reflux ?K21.9 - Gastro-esophageal reflux disease without esophagitis (ICD-10) Sleep apnea ?G47.30 - Sleep apnea, unspecified (ICD-10) High cholesterol ?E78.00 - Pure hypercholesterolemia, unspecified (ICD-10) Surgical History H/O neck surgery ?Z98.890 - Other specified postprocedural states (ICD-10) H/O elbow surgery ?Z98.890 - Other specified postprocedural states (ICD-10) H/O carpal tunnel repair ?Z98.890 - Other specified postprocedural states (ICD-10) Hx of tonsillectomy ?Z90.89 - Acquired absence of other organs (ICD-10) H/O eye surgery ?Z98.890 - Other specified postprocedural states (ICD-10) Meds Home Medications and Allergies Home Medications ?Medication ?Instructions ?Recorded ?Confirmed ?Type epinephrine 0.3 mg/0.3 mL 0.3 mg IM DAILY PRN anaphylaxis 08/30/23 04/19/24 History injection, auto-injector latanoprost 0.005 % eye drops 1 drp ophthalmic (eye) .QHS 08/30/23 04/19/24 History omeprazole 40 mg capsule,delayed 40 mg PO QAM 08/30/23 04/19/24 History release rosuvastatin 5 mg tablet 5 mg PO DAILY 08/30/23 04/19/24 History cyclobenzaprine 5 mg tablet 5 mg PO DAILY 12/08/23 04/19/24 History gabapentin 100 mg capsule 100 mg PO DAILY 12/08/23 04/19/24 History famotidine 20 mg tablet mg 04/19/24 History Allergies Allergy/AdvReac Type Severity Reaction Status Date / Time bee venom protein (honey bee) Allergy Severe Verified 04/19/24 09:17 Penicillins Allergy Severe Verified 04/19/24 09:17 Exam Constitutional Documenting provider has reviewed patient's vital signs: yes Common normals: no apparent distress, oriented x3, healthy appearing, alert and well nourished General appearance: cooperative [facility] Common normals: normocephalic, hearing grossly normal bilaterally and moist oral mucous membranes Head and scalp: normocephalic Eye Common normals: PERRL Pupil: PERRL Neck & C-Spine Common normals: full ROM General: normal visual inspection Chest Common normals: inspection of chest normal Respiratory Common normals: normal respiratory effort, no retractions and no use of accessory muscles Back & Pelvis Lumbar spine/lower back: ROM limited, pain with ROM and straight leg raise positive right Sacroiliac joints: SI joint(s) abnormal Other: positive right LA FADIR thigh thrust and gaenslens decreased sensation to right L4,5,S1 pattern strength 4/5 in RLE, 5/5 in LLE positive facet loading at L1-3 Extremity Common normals: normal to inspection and full ROM Neuro Common normals: oriented x3, CN's II-XII intact bilaterally, moves all extremities, no focal motor deficits, no sensory deficits noted and deep tendon reflexes 2+ bilaterally Sensorium/orientation: alert Gait (neuro): antalgic Motor exam: no movement abnormalities noted and strength abnormal Psych Common normals: mental status grossly normal, thought process normal, cooperative, affect normal, speech normal and activity/motor behavior normal Speech: normal speech Thought process: normal thought process Results Additional Findings Additional findings: If on a controlled substance or opioids, I have checked an [place]AR[place] report on this patient and there are no aberrancies noted in the prescribing history.??If on a controlled substance or opioid a drug screen was completed and reviewed within the last year, and if there has not been a drug screen completed we ordered one today to monitor higher risk, state monitored pain medication use. As part of providing excellent, safe, comprehensive care, the following was completed at our patient's visit: 1. A medication reconciliation and review to ensure accurate knowledge of current/active medications, including asking our patients to inform us about any iecv-zkf-asnpeka medications or herbal remedies/nutritional supplements/alternative remedies. 2. A review to specifically ensure our patients have had annual screening for screening for depression, screening for tobacco use, and screening for unhealthy alcohol use. For concerning screenings had a discussion with the patient, provided patient education, and recommended follow-up with primary care provider when appropriate. If patient noted with a risk of falling, they received education on strength, gait, and balance training to prevent future risk of falling. Assessment and Plan Assessment and Plan (1) Lumbar spondylosis: (2) Sacroiliac joint dysfunction of both sides: (3) Lumbar stenosis with neurogenic claudication: (4) Myofascial pain: (5) Sacroiliitis: Plan update lumbar xray with flexion and extension to evaluate acute on chronic low back pain, rule out fx and listhesis right L4-5 L5-S1 TFESI under fluoroscopy, risks vs benefits reviewed, for lumbar stenosis with NC right SIJ injection under fluoroscopy, risks vs benefits reviewed, for sacroilitis f/u after completion of injections
== END 2024-05-20 10:56 | disposition home or self-care (01) ==
LOC: PM 10:55
PROVIDERS: PCP Family Medicine; Visit Provider Nurse Practitioner
DX: M47.816 Spondylosis without myelopathy or radiculopathy, lumbar region (principal); M48.062 Spinal stenosis, lumbar region with neurogenic claudication; M53.3 Sacrococcygeal disorders, not elsewhere classified; M46.1 Sacroiliitis, not elsewhere classified; M79.18 Myalgia, other site
CPT/HCPCS: G0463

== ENCOUNTER 2024-05-20 11:21 | Outpatient (OUT) | payer MEDICAID, SELFPAY ==
--- NOTE | 2024-05-20 11:26 | XR_ITS ---
The [address] [address] Patient Name: ROSA MCNAMARA MRN: [id number] date: 1965 Sex: M Assigned Patient Location: [facility] Current Patient Location: Accession/Order Number: [id number] Exam Date: 05/20/2024 11:34 Report Date: 05/21/2024 07:37 At the request of: JEB BEE Procedure: XR lumbar spine 6V w bending EXAMINATION: XR lumbar spine 6V w bending HISTORY: Lumbar Spinal Stenosis, Spondylosis COMPARISON: No relevant comparison available. FINDINGS: BONES: Normal alignment with no acute fracture or spondylolisthesis. Moderate diffuse degenerative spondylosis with calcification anterior longitudinal ligament. Moderate facet osteoarthropathy most significant at L5-S1 DISC SPACES: Normal. No significant disc height narrowing, subluxation, or endplate abnormality. PARASPINOUS: Negative. No paraspinous abnormality is seen. OTHER: No transient spondylolisthesis with flexion or extension. Limited range of motion XR/XR lumbar spine 6V w bending IMPRESSION: Moderate diffuse degenerative changes with no dynamic instability Electronically authenticated by: GENOVEVA CARR Date: 05/21/2024 07:37
== END 2024-05-20 11:22 | disposition home or self-care (01) ==
LOC: RAD 11:22
PROVIDERS: PCP Family Medicine; Visit Provider Nurse Practitioner
DX: M47.816 Spondylosis without myelopathy or radiculopathy, lumbar region (principal); M48.062 Spinal stenosis, lumbar region with neurogenic claudication; M53.3 Sacrococcygeal disorders, not elsewhere classified; M46.1 Sacroiliitis, not elsewhere classified; M79.18 Myalgia, other site
CPT/HCPCS: 72114; G0463

== ENCOUNTER 2024-06-28 14:36 | Outpatient (OUT) | payer MEDICAID, SELFPAY ==
--- OUTSIDE RECORDS SUMMARY | 2024-06-28 14:49 | XMS_ITS | CCD ---
Author Organization [facility] Care Team Providers Care Automatic Driller And Reamer Name Role Phone Harvey Holt Unavailable NON STAFF Primary Care Provider UnavailDAPHNEY Sotelo Attending Provider [phone] Rumschlag, DO Britt Primary Care Provider Rumcoco, DO Britt Primary Care Provider MD Josué Evangelista Attending Provider Rumcoco, DO Britt Primary Care Provider MD Josué Evangelista Attending Provider [phone] Gómez Sidhu Admitting Unavailable Gómez Sidhu Attending Unavailable NON STAFF Primary Care Unavailable Josué Evangelista Admitting Unavailable Josué Evangelista Attending Unavailable Rumschlag, Britt Primary Care Unavailable Josué Evangelista Admitting Unavailable Josué Evangelista Attending Unavailable Rumschlag, Britt Primary Care Unavailable Josué Evangelista Attending Unavailable Rumschlag, Britt Primary Care Unavailable Josué Evangelista Admitting Unavailable Gómez Sidhu Admitting Unavailable Gómez Sidhu Attending Unavailable Rumschlag, Britt Primary Care Unavailable Josué Eavngelista Unavailable [facility] Primary Care Unava ilable MITCHELL TRAYLOR Admitting Unavailable MERCEDES ENRIQUEZ Consulting Unavailable MITCHELL TRAYLOR Attending Unavailable JONN HARGROVE Consulting Unavailable MITCHELL TRAYLOR Consulting Unavailable MISC, DR GARCIAS Attending Unavailable MISC, DR GARCIAS Consulting Unavailable [facility] Primary Care Unava ilable RADHA, DR GARCIAS Admitting Unavailable RUMSCHLAG, BRITT Primary Care Unavailable YVONNE CAMARENA Referring Unavailable NICOL, YVONNE R Referring Unavailable RUMSCHLAG, BRITT [facility] Unavailable CANDIS RENTERIA Admitting Unavailable CANDIS RENTERIA Attending Unavailable [facility] Primary Care Unavailable GÓMEZ SIDHU Attending Unavailable Gieboniitis , Richard Guaman Attending Unavailable Gialivia RAWLS, Richard Guaman Attending Unavailable Lise RAWLS, Andmagdaleno Guaman Attending Unavailable Lise RAWLS, Andmagdaleno Guaman Attending Unavailable Gieditis , Andmagdaleno Guaman Attending Unavailable Giedemilia RAWLS, Andmagdaleno Guaman Attending Unavailable Allergies Allergy Classification Reported Allergen(s) Allergy Type Date of Onset Reaction(s) Facility (7 sources) penicillAMINE Drug Allergy Unknown [facility] [employer] Other (7 sources) Bee Sting Drug allergy Unknown [facility] [employer] Other (5 sources) Penicillins; Translations: [Penicillins] Allergy to substance 11-23-20 21 Unknown Reaction [facility] (5 sources) venom-honey bee; Translations: [venom-honey bee] Allergy to substance 1123-20 21 Swelling [facility] (1 source) bee venom Drug allergy (disorder) [facility] Repository (1 source) Penicillin Drug Allergy [facility] Medications Current Medications Medication Drug Class(es) [...] Exam NEGATIVE Report Status FINAL 10/16/2023 Normal [facility] Comment on above: Performed By: #### F HPY #### [facility] [address] [place] [address] Warehouse Delivery Manager: Guy Ramey MD [facility] [address] [place] [address] Warehouse Delivery Manager: Justus Darby MD Surgical Pathology Reporton 10-15-2023 Surgical Pathology Report (NOTE) Path Number: [id number] -- Diagnosis -- A. GE junction, endoscopic [...] for each. Microscopic examination performed. Processing Lab: [address] [id number] Interpretation Performed at [address] [id number] SURGICAL PATHOLOGY CONSULTATION Patient Name: ROSA EASTMAN Rec: [id number] [facility] [employer] [facility] ANATOMIC PATHOLOGY [address] [place] [id number] Normal [facility] CBC with Diffon 10-14-2023 Abs. Basophil 0.17 k/uL Normal 0.00-0.20 [facility] Comment on above: Performed By: #### C DP #### [facility] [address] [place] [address] Warehouse Delivery Manager: Justus Darby MD Abs.Imm.Granulocyte 0.04 k/uL Normal 0.00-0.30 [facility] Comment on above: Performed By: #### C DP #### [facility] [address] [place], [place] [phone] Warehouse Delivery Manager: Justus Darby MD Abs.Neutrophil (Seg) 5.08 k/uL Normal 1.50-8.10 [facility] Comment on above: Performed By: #### C DP #### [facility] [address] [place], [place] [phone] Warehouse Delivery Manager: Justus Darby MD Basophils/100 WBC (Bld) 2 % Normal 0-2 [facility] Comment on above: Performed By: #### C DP #### [address] [place] [address] Warehouse Delivery Manager: Justus Darby MD Eosinophils (Bld) [#/Vol] 0.43 10*3/uL Normal 0.00-0.44 [facility] Comment on above: Performed By: #### C DP #### [facility] [address] [place], [place] [phone] Warehouse Delivery Manager: Justus Darby MD Eosinophils/100 WBC (Bld) 4 % Normal 1-4 [facility] Comment on above: Performed By: #### C DP #### [facility] [address] [place] [address] Dr. [place], [place] [phone] Warehouse Delivery Manager: Justus Darby MD Erythrocyte distribution width (RBC) [Ratio] 12.3 % Normal 11.8-14.4 [facility] Comment on above: Performed By: #### C DP #### [facility] [address] [place], [place] [phone] Warehouse Delivery Manager: Justus Darby MD Hematocrit (Bld) [Volume fraction] 44.4 % Normal 40.7-50.3 [facility] Comment on above: Performed By: #### C DP #### [facility] [address] [place], [place] [phone] Warehouse Delivery Manager: Justus Darby MD Hemoglobin (Bld) [Mass/Vol] 14.6 g/dL Normal 13.0-17.0 [facility] Comment on above: Performed By: #### C DP #### [address] [place], [place] [phone] Warehouse Delivery Manager: Justus Darby MD Immature granulocytes/100 WBC (Bld) 0 % Normal 0 [facility] Comment on above: Performed By: #### C DP #### [facility] [address] [place] [address] Dr. [place], [place] [phone] Warehouse Delivery Manager: Justus Dabry MD Lymphocytes (Bld) [#/Vol] 3.86 10*3/uL High 1.10-3.70 [facility] Comment on above: Performed By: #### C DP #### [facility] [address] [place] [address] Dr. [place], [place] [phone] Warehouse Delivery Manager: Justus Darby MD Lymphocytes/100 WBC (Bld) 36 % Normal 24-43 [facility] Comment on above: Performed By: #### C DP #### [facility] [address] [place] [address] Dr. [place], [place] [phone] Warehouse Delivery Manager: Justus Darby MD MCH (RBC) [Entitic mass] 30.9 pg Normal 25.2-33.5 [facility] Comment on above: Performed By: #### C DP #### [facility] [address] [place] [address] Dr. [place] [phone] Warehouse Delivery Manager: Justus Darby MD MCHC (RBC) [Mass/Vol] 32.9 g/dL Normal 28.4-34.8 [facility] Comment on above: Performed By: #### C DP #### [facility] [address] [place] [address] Dr. [place], [place] [phone] Warehouse Delivery Manager: Justus Darby MD MCV (RBC) [Entitic vol] 93.9 fL Normal 82.6-102.9 [facility] Comment on above: Performed By: #### C DP #### [address] [place], [place] 5403983 Warehouse Delivery Manager: Justus Darby MD Monocytes (Bld) [#/Vol] 1.05 10*3/uL Normal 0.10-1.20 [facility] Comment on above: Performed By: #### C DP #### [facility] [address] [place] [address] Dr. [place], [place] [phone] Warehouse Delivery Manager: Justus Darby MD Monocytes/100 WBC (Bld) 10 % Normal 3-12 [facility] Comment on above: Performed By: #### C DP #### [address] [place], [place] [phone] Warehouse Delivery Manager: Justus Darby MD Neutrophil (Seg) 48 % Normal 36-65 [facility] Comment on above: Performed By: #### C DP #### [facility] [address] [place] [address] Dr. [place], [place] [phone] Warehouse Delivery Manager: Justus Darby MD NRBC Automated 0.0 per 100 WBC Normal 0.0 [facility] Comment on above: Performed By: #### C DP #### [address] [place], [place] 0408883 Warehouse Delivery Manager: Justus Darby MD Platelet mean volume (Bld) [Entitic vol] 9.6 fL Normal 8.1-13.5 [facility] Comment on above: Performed By: #### C DP #### [facility] [address] [place], [place] [phone] Warehouse Delivery Manager: Justus Darby MD Platelets (Bld) [#/Vol] 297 10*3/uL Normal 138-453 [facility] Comment on above: Performed By: #### C DP #### [facility] [address] [place], [place] [phone] Warehouse Delivery Manager: Justus Darby MD RBC (Bld) [#/Vol] 4.73 10*6/uL Normal 4.21-5.77 [facility] Comment on above: Performed By: #### C DP #### [facility] [address] [place], [place] [phone] Warehouse Delivery Manager: Justus Darby MD WBC (Bld) [#/Vol] 10.6 10*3/uL Normal 3.5-11.3 [facility] Comment on above: Performed By: #### C DP #### [facility] [address] [place] [address] Warehouse Delivery Manager: Justus Darby MD Basic Metabolic Panelon 03-0 Anion gap [Moles/Vol] 9.8 mmol/L Normal 6.0-15.0 [facility] Comment on above: Performed By: #### C BC, BMP #### [facility] [address] Calcium [Mass/Vol] 9.1 mg/dL Normal 8.2-10.2 [facility] Comment on above: Result Comment: PERF ORMED BY: [facility] [address] [place] [address] PATHOLOGIST ORDNANCE TRUCK INSTALLATION MECHANIC GENEVIEVE CANNON M.D. Performed By: #### C BC, BMP #### [facility] [address] [place] [address] [place] Chloride [Moles/Vol] 104 mmol/L Normal 95-114 [facility] Comment on above: Performed By: #### C BC, BMP #### [facility] [address] [place] [address] [place] CO2 [Moles/Vol] 25.9 mmol/L Normal 22.0-30.0 [facility] Comment on above: Performed By: #### C BC, BMP #### [facility] [address] [place] [address] [place] Creatinine [Mass/Vol] 0.98 mg/dL Normal 0.64-1.27 [facility] Comment on above: Performed By: #### C BC, BMP #### [facility] [address] Estimated GFR ( Camila > 60 [facility] Comment on above: Result Comment: GFR estimated reference range: According to KDOQI guidelines, <60 ml/min/1.73m2 is sufficient to diagnose a patient with chronic kidney disease. Performed By: #### C BC, BMP #### [facility] [address] [place] [address] [place] Estimated GFR (Non- Am > 60 Normal [facility] Comment on above: Performed By: #### C BC, BMP #### [facility] [address] [place] [address] [place] Glucose [Mass/Vol] 82 mg/dL Normal 70-100 [facility] Comment on above: Result Comment: [place] Glucose Reference Range is dependent on time and content of last meal. Glucose of more than 200 mg/dL in a nonstressed, ambulatory subject supports the diagnosis of Diabetes Mellitus. ADA recommended reference range Performed By: #### C BC, BMP #### [facility] [address] [place] [address] [place] Potassium [Moles/Vol] 3.7 mmol/L Normal 3.5-5.1 [facility] Comment on above: Performed By: #### C BC, BMP #### [facility] [address] [place] [address] [place] Sodium [Moles/Vol] 136 mmol/L Normal 136-146 [facility] Comment on above: Performed By: #### C BC, BMP #### [facility] [address] Urea nitrogen [Mass/Vol] 11 mg/dL Normal 9-23 [facility] Comment on above: Performed By: #### C BC, BMP #### [facility] [address] Basophils Auto (Bld) [#/Vol] Ordered By: Josué Evangelista on 01-13-2023 Basophils (Bld) [#/Vol] 0.1 10*3/uL 0.0-0.2 [facility] Basophils/100 WBC Auto (Bld) Ordered By: Josué Evangelista on 01-13-2023 Basophils/100 WBC (Bld) 1.2 % . [facility] Calcium [Mass/volume] in Ser um or PlasmaOrdered By: Josué Evangelista on 01-13-2023 Calcium [Mass/Vol] 9.1 mg/dL 8.2-10.2 [facility] Carbon dioxide, total [Moles /volume] in Serum or PlasmaOrdered By: Josué Evangelista on 01-13-2023 CO2 [Moles/Vol] 25.9 mmol/L 22.0-30.0 [facility] Chloride [Moles/volume] in S lai or PlasmaOrdered By: Josué Evangelista on 01-13-2023 Chloride [Moles/Vol] 104 mmol/L 95-114 [facility] Complete Blood Count Auto Di ffon 01-13-2023 Basophils (Bld) [#/Vol] 0.1 10*3/uL Normal 0.0-0.2 [facility] Comment on above: Result Comment: PERF ORMED BY: [facility] [address] [place] [address] PATHOLOGIST ORDNANCE TRUCK INSTALLATION MECHANIC GNEEVIEVE CANNON M.D. Performed By: #### C BC, BMP #### [address] Basophils/100 WBC (Bld) 1.2 % Normal . [facility] Comment on above: Performed By: #### C BC, BMP #### [facility] [address] [place] [address] [place] Eosinophils (Bld) [#/Vol] 0.5 10*3/uL High 0.0-0.45 [facility] Comment on above: Performed By: #### C BC, BMP #### [address] Eosinophils/100 WBC (Bld) 4.7 % Normal . [facility] Comment on above: Performed By: #### C BC, BMP #### [address] Erythrocyte distribution width (RBC) [Ratio] 12.6 % Normal 12.0-14.8 [facility] Comment on above: Performed By: #### C BC, BMP #### [address] Hematocrit (Bld) [Volume fraction] 41.2 % Normal 38.8-50.0 [facility] Comment on above: Performed By: #### C BC, BMP #### [address] Hemoglobin (Bld) [Mass/Vol] 14.1 g/dL Normal 13.0-17.0 [facility] Comment on above: Performed By: #### C BC, BMP #### [address] Lymphocytes (Bld) [#/Vol] 3.4 10*3/uL Normal 1.00-4.8 [facility] Comment on above: Performed By: #### C BC, BMP #### [address] Lymphocytes/100 WBC (Bld) 33.3 % Normal . [facility] Comment on above: Performed By: #### C BC, BMP #### [address] MCH (RBC) [Entitic mass] 31.7 pg Normal 27.5-35.2 [facility] Comment on above: Performed By: #### C BC, BMP #### [address] MCV (RBC) [Entitic vol] 92.3 fL Normal 83.5-101 [facility] Comment on above: Performed By: #### C BC, BMP #### [address] Mean Corpuscular HGB Conc 34.4 g/dL Normal 32.5-35.6 [facility] Comment on above: Performed By: #### C BC, BMP #### [address] Monocytes (Bld) [#/Vol] 1.0 10*3/uL High 0.0-0.8 [facility] Comment on above: Performed By: #### C BC, BMP #### [address] Monocytes/100 WBC (Bld) 10.1 % Normal . [facility] Comment on above: Performed By: #### C BC, BMP #### [address] Neutrophils (Bld) [#/Vol] 5.2 10*3/uL Normal 1.8-7.7 [facility] Comment on above: Performed By: #### C BC, BMP #### [address] Neutrophils/100 WBC (Bld) 50.7 % Normal . [facility] Comment on above: Performed By: #### C BC, BMP #### [address] NRBC% 0.1 /100{WBC} Normal 0-0.5 [facility] Comment on above: Performed By: #### C BC, BMP #### [address] Platelet mean volume (Bld) [Entitic vol] 7.8 fL Normal 6.6-10.1 [facility] Comment on above: Performed By: #### C BC, BMP #### [address] Platelets (Bld) [#/Vol] 268 10*3/uL Normal 150-450 [facility] Comment on above: Performed By: #### C BC, BMP #### [facility] [address] RBC (Bld) [#/Vol] 4.46 10*6/uL Normal 3.90-5.60 [facility] Comment on above: Performed By: #### C BC, BMP #### [facility] [address] WBC (Bld) [#/Vol] 10.3 10*3/uL Normal 4.1-10.5 [facility] Comment on above: Performed By: #### C BC, BMP #### [address] Creatinine and Glomerular fi ltration rate.predicted panel (S/P/Bld)Ordered By: Josué Evangelista on 01-13-2023 Creatinine [Mass/Vol] 0.98 mg/dL 0.64-1.27 [facility] ECG 12 lead ECGon 01-13-2023 ECG 12 lead ECG [facility] [place] [address] [place] [address] Electrocardiograph Report Signed Patient: Rosa Eastman MR#: [id number] : 1965 Acct:[id number] Age/Sex: 57 / M ADM Date: 01/13/23 Loc: Room: Type: [facility] Attending Dr: Josué Evangelista MD Ordering Provider: [...] Marylin Eisenberg MD 0 01/14/23 1534 Normal [facility] Eosinophils Auto (Bld) [#/Vo l]Ordered By: Josué Evangelista on 01-13-2023 Eosinophils (Bld) [#/Vol] 0.5 10*3/uL 0.0-0.45 [facility] Eosinophils/100 WBC Auto (Bl d)Ordered By: Josué Evangelista on 01-13-2023 Eosinophils/100 WBC (Bld) 4.7 % . [facility] Erythrocyte distribution wid th Auto (RBC) [Ratio]Ordered By: Josué Evangelista on 01-13-2023 Erythrocyte distribution width (RBC) [Ratio] 12.6 % 12.0-14.8 [facility] Estimated glomerular filtrat ion rate (GFR) non- AmericanOrdered By: Josué Evangelista on 01-13-2023 GFR/1.73 sq M.predicted among non-blacks MDRD (S/P/Bld) [Vol rate/Area] > 60 mL/Min [facility] Glucose [Mass/volume] in Ser um or PlasmaOrdered By: Josué Evangelista on 01-13-2023 Glucose [Mass/Vol] 82 mg/dL 70-100 [facility] Comment on above: ADA recommended refe rence rangeRandom Glucose Reference Range is dependent on time and content of last meal. Glucose of more than 200 mg/dL in a nonstressed, ambulatory subject supports the diagnosis of Diabetes Mellitus. Hematocrit Auto (Bld) [Volum e fraction]Ordered By: Josué Evangelista on 01-13-2023 Hematocrit (Bld) [Volume fraction] 41.2 % 38.8-50.0 [facility] Hemoglobin [Mass/volume] in BloodOrdered By: Josué Evangelista on 01-13-2023 Hemoglobin (Bld) [Mass/Vol] 14.1 g/dL 13.0-17.0 [facility] Leukocytes [#/volume] correc lesly for nucleated erythrocytes in Blood by Automated counOrdered By: Josué Evangelista on 01-13-2023 WBC corrected for nucl RBC Auto (Bld) [#/Vol] 10.3 10*3/uL 4.1-10.5 [facility] Lymphocytes Auto (Bld) [#/Vo l]Ordered By: Josué Evangelista on 01-13-2023 Lymphocytes (Bld) [#/Vol] 3.4 10*3/uL 1.00-4.8 [facility] Lymphocytes/100 WBC Auto (Bl d)Ordered By: Josué Evangelista on 01-13-2023 Lymphocytes/100 WBC (Bld) 33.3 % . [facility] MCH Auto (RBC) [Entitic mass ]Ordered By: Josué Evangelista on 01-13-2023 MCH (RBC) [Entitic mass] 31.7 pg 27.5-35.2 [facility] MCHC Auto (RBC) [Mass/Vol]Or dered By: Josué Evangelista on 01-13-2023 MCHC (RBC) [Mass/Vol] 34.4 g/dL 32.5-35.6 [facility] MCV Auto (RBC) [Entitic vol] Ordered By: Josué Evangelista on 01-13-2023 MCV (RBC) [Entitic vol] 92.3 fL 83.5-101 [facility] Monocytes Auto (Bld) [#/Vol] Ordered By: Josué Evangelista on 01-13-2023 Monocytes (Bld) [#/Vol] 1.0 10*3/uL 0.0-0.8 [facility] Monocytes/100 WBC Auto (Bld) Ordered By: Josué Evangelista on 01-13-2023 Monocytes/100 WBC (Bld) 10.1 % . [facility] Neutrophils Auto (Bld) [#/Vo l]Ordered By: Josué Evangelista on 01-13-2023 Neutrophils (Bld) [#/Vol] 5.2 10*3/uL 1.8-7.7 [facility] Neutrophils/100 WBC Auto (Bl d)Ordered By: Josué Evangelista on 01-13-2023 Neutrophils/100 WBC (Bld) 50.7 % . [facility] No Panel InformationOrdered By: Josué Evangelista on 01-13-2023 Estimated GFR () > 60 mL/Min [facility] Comment on above: GFR estimated refere nce range: According to KDOQI guidelines, <60 ml/min/1.73m2 is sufficient to diagnose a patient with chronic kidney disease. Pharmacy Creatinine Clearance (Chem N/A [facility] Nucleated erythrocytes [Pres ence] in Blood by Automated countOrdered By: Josué Evangelista on 01-13-2023 Nucleated RBC Auto Ql (Bld) 0.1 /100{WBC} 0-0.5 [facility] Platelet mean volume Auto (B ld) [Entitic vol]Ordered By: Josué Evangelista on 01-13-2023 Platelet mean volume (Bld) [Entitic vol] 7.8 fL 6.6-10.1 [facility] Platelets Auto (Bld) [#/Vol] Ordered By: Josué Evangelista on 01-13-2023 Platelets (Bld) [#/Vol] 268 10*3/uL 150-450 [facility] Potassium [Moles/volume] in Serum or PlasmaOrdered By: Josué Evangelista on 01-13-2023 Potassium [Moles/Vol] 3.7 mmol/L 3.5-5.1 [facility] RBC Auto (Bld) [#/Vol]Ordere d By: Josué Evangelista on 01-13-2023 RBC (Bld) [#/Vol] 4.46 10*6/uL 3.90-5.60 [facility] Serum or plasma anion gap de terminationOrdered By: Josué Evangelista on 01-13-2023 Anion gap [Moles/Vol] 9.8 mmol/L 6.0-15.0 [facility] Sodium [Moles/volume] in Ser um or PlasmaOrdered By: Josué Evangelista on 01-13-2023 Sodium [Moles/Vol] 136 mmol/L 136-146 [facility] Urea nitrogen [Mass/volume] in Serum or PlasmaOrdered By: Josué Evangelista on 01-13-2023 Urea nitrogen [Mass/Vol] 11 mg/dL 9-23 [facility] WBC Auto (Bld) [#/Vol]Ordere d By: Josué Evangelista on 01-13-2023 WBC (Bld) [#/Vol] 10.3 10*3/uL 4.1-10.5 [facility] XR cerv spine AP/LAT/FLX/EXT on 12-06-2022 XR cerv spine AP/LAT/FLX/EXT [facility] Main [address] [address] XRay Report Signed Patient: Rosa Eastman MR#: [id number] : 1965 Acct:[id number] Age/Sex: 57 / M ADM Date: 12/06/22 Loc: XD Room: Type: [facility] CLI Attending Dr: Josué Evangelista MD [...] Erasmo Maddox M.D.12/06/2022 2:26 PM Dictation Location: [place] [address] Transcribed By: [facility] 12/06/221425 Dictated By: Erasmo Maddox DO 12/06/221421 Signed By: 12/06/22 142 Normal [facility] CBC AUTO DIFFon 08-10-2022 BASO # 0.2 103/ul Critically high 0.0-0.1 [facility] Comment on above: Performed By: #### C BC #### [facility] [address] [place] [address] [address] Mars Sanders Basophils/100 WBC (Bld) 2.0 % Normal 0.2-2.0 [facility] Comment on above: Performed By: #### C BC #### [facility] [address] [place] [address] Dr. Mars Sanders EO # 0.5 103/ul Normal 0.0-0.7 [facility] Comment on above: Performed By: #### C BC #### [facility] [address] [place] [address] Dr. Mars Sanders Eosinophils/100 WBC (Bld) 5.7 % Normal 0.9-7.0 [facility] Comment on above: Performed By: #### C BC #### [facility] [address] [place] [address] Dr. Mars Sanders Erythrocyte distribution width (RBC) [Ratio] 12.4 % Normal 11.0-15.0 [facility] Comment on above: Performed By: #### C BC #### [facility] [address] [place] [address] Dr. Mars Sanders Hematocrit (Bld) [Volume fraction] 41.8 % Critically low 42.0-54.0 [facility] Comment on above: Performed By: #### C BC #### [facility] [address] [place] [address] Dr. Mars Sanders Hemoglobin (Bld) [Mass/Vol] 14.0 g/dL Normal 14.0-18.0 [facility] Comment on above: Performed By: #### C BC #### [facility] [address] [place] [address] Dr. Mars Sanders IG # 0.02 10e3/ul Normal 0.00-0.03 [facility] Comment on above: Performed By: #### C BC #### [facility] [address] [place] [address] Dr. Mars Sanders IG % 0.2 % Normal 0.0-0.5 [facility] Comment on above: Performed By: #### C BC #### [facility] [address] [place] [address] Dr. Mars Sanders LYMPH # 3.1 103/ul Normal 1.2-3.8 [facility] Comment on above: Performed By: #### C BC #### [facility] [address] [place] [address] Dr. Mars Sanders Lymphocytes/100 WBC (Bld) 36.3 % Normal 20.5-60.0 [facility] Comment on above: Performed By: #### C BC #### [facility] [address] [place] [address] Dr. Mars Sanders MANUAL DIFF REQ NO Normal [facility] Comment on above: Performed By: #### C BC #### [facility] [address] [place] [address] Dr. Mars Sanders MCH (RBC) [Entitic mass] 31.4 pg Normal 25.9-34.0 [facility] Comment on above: Performed By: #### C BC #### [facility] [address] [place] [address] Dr. Mars Sanders MCHC (RBC) [Mass/Vol] 33.5 g/dL Normal 29.9-35.2 [facility] Comment on above: Performed By: #### C BC #### [facility] [address] [place] [address] Dr. Mars Sanders MCV (RBC) [Entitic vol] 93.7 fL Normal 80.0-94.0 [facility] Comment on above: Performed By: #### C BC #### [facility] [address] [place] [address] Dr. Mars Sanders MONO # 0.8 103/ul Normal 0.3-0.8 [facility] Comment on above: Performed By: #### C BC #### [facility] [address] [place] [address] Dr. Mars Sanders Monocytes/100 WBC (Bld) 10.0 % Normal 1.7-12.0 [facility] Comment on above: Performed By: #### C BC #### [facility] [address] [place] [address] Dr. Mars Sanders NEUT # 3.9 103/ul Normal 1.4-6.5 [facility] Comment on above: Performed By: #### C BC #### [facility] [address] [address] [address] Mars Sanders Neutrophils/100 WBC (Bld) 45.8 % Normal 43.0-75.0 [facility] Comment on above: Performed By: #### C BC #### [facility] [address] [address] [address] Mars Sanders Platelet mean volume (Bld) [Entitic vol] 9.4 fL Critically low 9.5-13.5 [facility] Comment on above: Performed By: #### C BC #### [facility] [address] [address] [address] Mars Sanders PLT 251 103/ul Normal 150-450 [facility] Comment on above: Performed By: #### C BC #### [facility] [address] [address] [address] Mars Sanders RBC 4.46 106/ul Critically low 4.70-6.10 [facility] Comment on above: Performed By: #### C BC #### [facility] [address] [address] [address] Mars Sanders WBC 8.4 103/ul Normal 4.0-11.0 [facility] Comment on above: Performed By: #### C BC #### [facility] [id number] Mars Sanders D-DIMERon 08-10-2022 D-DIMER 0.35 mg/L FEU Normal <=0.59 [facility] Comment on above: Performed By: #### D DIM #### [facility] [address] [address] [address] Mars Sanders D-DIMER COMMENTS SEE BELOW Normal [facility] Comment on above: Result Comment: Incr [...] hospitalization. Performed By: #### D DIM #### [facility] [address] [place] [address] Dr. Mars Sanders PROF 14(COMP METB)on 022 Albumin [Mass/Vol] 3.8 g/dL Normal 3.4-5.0 [facility] Comment on above: Performed By: #### H STROPN, CMP #### [facility] [address] [place] [address] Dr. Mars Sanders Albumin/Globulin [Mass ratio] 1.0 {ratio} Normal [facility] Comment on above: Performed By: #### H MIKEYPN, CMP #### [facility] [address] [place] [address] Dr. Mras Sanders ALP [Catalytic activity/Vol] 127 U/L Critically high 46-116 [facility] Comment on above: Performed By: #### H MIKEYPN, CMP #### [facility] [address] [place] [address] Dr. Mars Sanders ALT [Catalytic activity/Vol] 30 U/L Normal 16-63 [facility] Comment on above: Performed By: #### H MIKEYPN, CMP #### [facility] [address] [place] [address] Dr. Mars Sanders Anion gap [Moles/Vol] 13.5 mmol/L Normal [facility] Comment on above: Performed By: #### H STROPN, CMP #### [facility] [address] [place] [address] Dr. Mars Sanders AST [Catalytic activity/Vol] 20 U/L Normal 15-37 [facility] Comment on above: Performed By: #### H STROPN, CMP #### [facility] [address] [place] [address] Dr. Mars Sanders Bilirubin [Mass/Vol] 0.3 mg/dL Normal 0.2-1.0 [facility] Comment on above: Performed By: #### H MIKEYPN, CMP #### [facility] [address] [address] [address] Mars Sanders Calcium [Mass/Vol] 8.7 mg/dL Normal 8.5-10.1 [facility] Comment on above: Performed By: #### H STROPN, CMP #### [facility] [address] [address] [address] Mars Sanders Chloride [Moles/Vol] 105 mmol/L Normal 98-107 [facility] Comment on above: Performed By: #### H STROPN, CMP #### [facility] [address] [address] [address] Mars Sanders CO2 [Moles/Vol] 25.4 mmol/L Normal 21.0-32.0 [facility] Comment on above: Performed By: #### H STROPN, CMP #### [facility] [address] [place] [address] Dr. Mars Sanders Creatinine [Mass/Vol] 0.98 mg/dL Normal 0.70-1.30 [facility] Comment on above: Performed By: #### H STROPN, CMP #### [facility] [address] [address] [address] Mars Sanders EGFR-AF FINNISH >60 Normal >=60 [facility] Comment on above: Performed By: #### H STROPN, CMP #### [facility] [address] [place] [address] Dr. Mars Sanders EGFR-NON AF FINNISH >60 Normal >=60 [facility] Comment on above: Performed By: #### H STROPN, CMP #### [facility] [address] [address] [address] Mars Sanders Globulin (S) [Mass/Vol] 3.9 g/dL Normal [facility] Comment on above: Performed By: #### H STROPN, CMP #### [facility] [address] [address] [address] Mars Sanders Glucose [Mass/Vol] 102 mg/dL Normal 74-106 [facility] Comment on above: Performed By: #### H STROPN, CMP #### [facility] [address] [address] [address] Mars Sanders Potassium [Moles/Vol] 3.9 mmol/L Normal 3.5-5.1 [facility] Comment on above: Performed By: #### H MIKEYPN, CMP #### [facility] [address] [address] [address] Mars Sanders Protein [Mass/Vol] 7.7 g/dL Normal 6.4-8.2 [facility] Comment on above: Performed By: #### H ALESSIO, CMP #### [facility] [address] [address] [address] Mars Sanders Sodium [Moles/Vol] 140 mmol/L Normal 136-145 [facility] Comment on above: Performed By: #### H ALESSIO, CMP #### [facility] [address] [place] [address] Dr. Mars Sanders Urea nitrogen [Mass/Vol] 14.0 mg/dL Normal 7.0-18.0 [facility] Comment on above: Performed By: #### H ALESSIO, CMP #### [facility] [address] [address] [address] Mars Sanders Urea nitrogen/Creatinine [Mass ratio] 14.3 mg/mg Normal [facility] Comment on above: Performed By: #### H ALESSIO, CMP #### [facility] [address] [place] [address] Dr. Mars aSnders PROTIMEon 08-10-2022 INR Coag (PPP) [Relative time] 0.95 {INR} Normal [facility] Comment on above: Performed By: #### P T, PTT #### [facility] [address] [address] [address] Mars Sanders INR GUIDELINES SEE BELOW Normal [facility] Comment on above: Result Comment: EDU RED INR: 2.0 - 3.0 CONDITIONS NOT LISTED BELOW 2.5 - 3.5 FOR PROSTHETIC HEART VALVE REPLACEMENT 2.5 - 3.5 RECURRENT THROMBOSIS Performed By: #### P T, PTT #### [facility] [address] [place], [place] [id number] Dr. Mars Sanders PT Coag (PPP) [Time] 10.3 s Normal 9.0-11.6 [facility] Comment on above: Performed By: #### P T, PTT #### [facility] [address] [place] [address] Dr. Mars Sanders PTTon 08-10-2022 aPTT Coag (Bld) [Time] 29.9 s Normal 22.3-36.2 [facility] Comment on above: Performed By: #### P T, PTT #### [facility] [address] [place] [address] Dr. Mars Sanders TROPONIN, HIGH SENSITIVITYon 08-10-2022 HSTROP 12.3 pg/mL Normal 4.0-76.1 [facility] Comment on above: Result Comment: CUT- OFF POINTS HAVE BEEN ESTABLISHED BASED ON THE FOURTH UNIVERSAL DEFINITIONS OF MYOCARDIAL INFARCTION. THE UPPER REFERENCE LIMIT (URL) OF TROPONIN, DEFINED THE 99TH PERCENTILE OF cTnI DISTRIBUTION IN A REFERENCE POPULATION, HAS BEEN CONFIRMED THE DECISION THRESHOLD FOR [place] DIAGNOSIS. Performed By: #### H STROPN, CMP #### [facility] [address] [place] [address] Dr. Mars Sanders XR CHEST 1 Von [...] JONN HARGROVE Date: 2022-08-10 18:59 Normal [facility] MR head/brain wo conon 07-08 MR head/brain wo con [facility] [address] MRI Report Signed Patient: Rosa Eastman MR#: [id number] : 1965 Acct:[id number] Age/Sex: 57 / M ADM Date: 07/08/22 Loc: [facility] Room: Type: [facility] Attending Dr: Gómez Alexander PA-C Copies to: Gómez Alexander PAC Ordering Provider: Gómez Alexander PAC Date of Service: 07/08/22 MR/MR [...] M.D.07/08/2022 1:37 PM Dictation Location: [place] [address] Transcribed By: [facility] 07/08/22 1337 Dictated By: Rob Funez II, MD 07/08/22 1330 Signed By: 07/08/22 1332 Normal [facility] Folate [Mass/volume] in Seru m or PlasmaOrdered By: Gómez Alexander on 06-21-2022 Folate [Mass/Vol] 7.4 ng/mL >5.9 [facility] Comment on above: Folate reference ran ge: >5.9 ng/ml The WHO technical consultation on folate and vitamin b12 deficiencies has determined that folate concentrations less than 4 ng/ml are considered deficient. Free T4 (Free Thyroxine)on 0 06-21-2022 Free T4 [Mass/Vol] 0.77 ng/dL Normal 0.61-1.12 [facility] Comment on above: Performed By: #### V [id number], T4F, TSH3 #### [facility] [address] [place] [address] #### METH #### [facility] , Laboratory - Chemistry and C hemistry - challengeOrdered By: Gómez Alexander on 06-21-2022 Cobalamin (Vitamin B12) [Mass/Vol] 369 pg/mL 180-914 [facility] Methylmalonic Acidon 022 Methylmalonic Acid 241 Normal 0-378 [facility] Comment on above: Result Comment: This test was developed and its performance characteristics determined by [facility]. It has not been cleared or approved by the Food and Drug Administration. Performed at: [address] [id number] Warehouse Delivery Manager: Millicent Calderon MD, Phone: [phone] PERFORMED BY: [place] [address] PATHOLOGIST [employer]DNA[employer]CE [employer] MECHANIC GENEVIEVE CANNON M.D. Performed By: #### V [id number], T4F, TSH3 #### [address] #### METH #### [facility] , Serum or plasma methylmalona te measurement (moles/volume)Ordered By: Gómez Alexander on 06-21-2022 Methylmalonate [Moles/Vol] 241 nmol/L 0-378 [facility] Comment on above: This test was develo ped and its performance characteristics determined by [facility]. It has not been cleared or approved by the Food and Drug Administration. Performed at: [address] [id number] Warehouse Delivery Manager: Millicent Calderon MD, Phone: [phone] TSH DL <= 0.005 mIU/L QnOrde red By: Gómez Alexander on 06-21-2022 TSH Qn 2.46 m[IU]/L 0.45-5.33 [facility] Thyroid Stimulating Hormoneo n 06-21-2022 TSH Qn 2.46 m[IU]/L Normal 0.45-5.33 [facility] Comment on above: Result Comment: PERF ORMED BY: [place] [address] PATHOLOGIST [employer]CE [employer]ATION MECHANIC GENEVIEVE CANNON M.D. Performed By: #### V [id number], T4F, TSH3 #### [facility] [address] [place] [address] #### METH #### [facility] , Thyroxine (T4) free [Mass/vo lume] in Serum or PlasmaOrdered By: Gómez Alexander on 06-21-2022 Free T4 [Mass/Vol] 0.77 ng/dL 0.61-1.12 [facility] Vit. B12/Folate Profileon Cobalamin (Vitamin B12) [Mass/Vol] 369 pg/mL Normal 180-914 [facility] Comment on above: Performed By: #### V [id number], T4F, TSH3 #### [facility] [address] [place] [address] [place] #### METH #### [facility] , Folate 7.4 ng/mL Normal >5.9 [facility] Comment on above: Result Comment: Rosa M te reference range: >5.9 ng/ml The WHO technical consultation on folate and vitamin b12 deficiencies has determined that folate concentrations less than 4 ng/ml are considered deficient. Performed By: #### V [id number], T4F, TSH3 #### [facility] [address] [place] [address] [place] #### METH #### [facility] , Coding Summaryon 02-13-2022 Coding Summary HTMLBase 64 OdoznujtHTe4mKa+PGhl YWQ+SV1XJTFpM31ogDKk sN0UM9dPIA9FBKGFABDQ PK6ZAB8yiGM6OGczX9Mc biAv PuzvkZEyXR18CAx3KXN2 vDmbNAolrA7fdOUcT2p8 SpAcHF60cW68YOyiGLHw VaT2WrSmftuquHSs N9kvAaBloMYhXit+PHRh YmxlIHdpZHRoPScxMDAl JjNnyJxyDY0oHv1eSYMf LWNvbGxhcHNlOiBj i9taYXDrDNvsYF0fsGbi Z6HewDY9NSInu9q2Rt68 dHI+HTOwCZV1rWjyUNaf x575ErNxe4xzUZO9 tFRoGFtkLKU4K49es4W1 DUUyYMSaZKH1dRH5yE5v mUbfqjxmJ1SbiZAkYdN0 QKT5oKCmkY2ioQta vzoouQ6lSfn+S08OBB9V PBZDML3EHtr3T1XiXwey dHI+XB94EYAxKA82eFBj lKLbz1gzaBf7PiTr MDTbUTQ9gEvtFKfvn6Rn LYNxE68rkNEmz3M9BCBq wRsgaCEePtPawBB1kX8q KCxfhbspl7ffmjrd Wlezo7kucd02wP66P97a RLvyVXFeDLD6JXJtOFVe lHmgde8plI5eKk9+IDxj c6fdj2rujVg8ZsLc WRRtbkSbyGjrUEL9i4Dn Ps29Z9LvjYbop1WgJph9 pq60bAYuc3C9kXI6LTsm TNSweE7oGDioCoZ0 BBUsHhElpA89bCHoWXnp Qu2kyIcnoDpmBB8eAMYt cxyeNEHnzL6tLIExjGDq rRpwWX6aGONnnbfn s199CfJrELA1TGUinFRx M3XxtS6uXqPoZCJkMCLo E2WxmLRpXXmpD383SWvi YmB1YDVvmsFaK8Zb LTJqkIjhYoH3p6J8Mq4P e7HrghzeTNB4XLwvIFP5 FvY9XzEeEeP8Y6BjIjz5 HHDeuNhhNS6oY3Zm ODNznowtjcyuvIW8NJZc BYMczQ86nLZsAIaqMm1h x6M2c581KAJhINQlnK00 Oi4xzTtmBTNvbBKT lA6vvfvfk2laqblkNlKg SAMjDLv0FBu9ZKCqdLqw BdHxECP1SlA2RML6iJMs nW6qeQggbnffyQ5w Oyc+U92gxO8yGCC6ADL4 ovbuHRToolKiED99RF10 N5MpLtjraWUfyDX+PGRp plNcyDvfMK4uOrWn x5wuv1GgWJojG0ViWVJx QHftSql3DUPsIOH6nWZ1 sC7xYVVaKRnjf5L8dLI1 F1YouxLyif8zp2rs TTVwDEbgZ79glPKuu1D1 WPTpjNK8JCZhwBciCtPs vY95Mhk+PFSasJmxh8Sz Mrnkn5aib7ptzIr6 IjMwJSIgdmFsaWduPSJ0 h1FePh12I66rGWcwWSLf DAVoEUQwXTLgvEigne3f yT7eOo1+PGNvbCB3 jFM6hH4bJGWvDxD6BQwh A054NlPmnUYvEtrru8hc q9ndgYj2PsWwRSBzzaVe qEmeFQQ3w4PhWx74 B22lQQynORJcBEZdMVFn AJDlqEozzv9ouL0zAr0+ UC5bd8jyhk10sV92yOG+ DUMfYQX8fNsjHOrd LIFmeD1jWYwyGrG0NGZc KbQsiY66aOIjJUkbOo9o yUmboGymBP5bIEVnizzf e083QmEqb4aeTUUe gFVvFPzoPDF4B13gi6F7 UPMyKOTnUGF0eFY8fC9f bGlnbjogbGVmdDsgdmVy uWclBXtcBGegH292 IHRvcDsnPlBhdGllbnQg ExDuLSk0O7LgGfb3DJUp kYjaUA8wgSIgZPdeAd4w uTtgaUsmGI8aNJEt rlkud860UsYbj3dxTSZf qPQcKTirPRK9R80qs3M1 MQFbKYEuAYQ7aDW5sV0y bGlnbjogbGVmdDsg auQczThbQVjvPUqdJ281 IHRvcDsnPkJpcnRoIERh zLF1DT87IC69lZTiq5C9 rCV7N5WoVQFgpurp coxcoIQ3QJAuRAKamJ59 Gz9nwWrgXs5kZVPnNSR5 EAUccAWgF3KygX9vGpFd ZTYiLEHuX1DrhTMu NZxyW707PWjjRtJ3IJDe xbAqU9SvGYDogXugAgZ1 a1E6Jx6LD6W2MS06YI78 mQRej4Q5hUM7B9Nn QCZmhxvetowksMY3LGSw YRPxeJ24Ig9ebEqnPi2d VFAgEIZ1CFXtiFFzX0Qt zY6jLtWrCZAfWZNr K2LmwTOmZDglN497DXiq ScH1WCBkvmWoK5CrJSKx sUxgYeI8t1T2Ei3BVOh1 YJ44GG62rAIzy1D8 cHG7Z7TeJFJabpnziahh pES6KZZxUWHqpR06Yz4h hRxtFn8lGSPaTOV1SYCv uQDrI4UvyO7pEfQz SQKcSGDdA4NbzTOsDLdm T753GZdhKbJ9WIKkypZw W1EaAVFkcQkfOxJ6o6S6 Vu5COQLjOI75EDA0 xFU3QV73JE84V6DeOidk dGFibGU+PHRhYmxlIHdp ZHRoPScxMDAlJyBzdHls WI0aMu0qSCOxIVEg aUtllAPqRxRzw1akZBAu IZoqAG1awMesT9NvlUO4 ZYUzu7d6Xf32H94vC4Zu dXA+CJWuvYV4cSL4 xP8wNmKwNeH9MXxpW025 BgGnqTQdXmoga9izt9tb gXg1DmN9SCOzqxVycKoo EDK6e2XhLn15K04d IHdpZHRoPSIxNSUiIHZh kWynaq6ohW1xQg7+PGNv uWT7tPU5lD2iGjBtHeP9 KGfxV579OwYioXIb Bspak2hld2bhgRt3CgSx ZBHapcRinRxxRNJ4r8Pi Yx99A7AosZjdn4FiIsy8 ls30gYLip4Y5oEC2 H2RoEQOtrwinkNAufEnm ND4kTWOqtxqnQTFvxR1r CIOaP3f9AaNsCmG8MTfv G2RfpmD6XVVizPCk CLmqFMA3D55tn9J2IYUw EENbXIU7zTY8bA1mbZqy bjogbGVmdDsgdmVydGlj POpuSTymK017DCBp tUerPHRxcA2gBUUubHSj pSinSY4hGQIylwypTkTA D6NOT06WUCNTL2MWIxFo JWePFZ39Y1ShSpz1 BKUryCprFX6gwYIcIBws Jt3egHelzRjnTB3cBJRz cvnbAWNepN2jVUBzmLHu kGzfAR7uCESbjccj j812MiGjHED9GUMgkKWt L3FjsL5eFaEaJNRcTEMv T1MzbSOoMFmsW589RKor AiS1CXNtuvToZ4Jo WQKfkGohZwP8w6A7Xw3j MH4xRn9tUMM3QR14KZ24 zEWkg1C1pMJ1F2IxZXUj hyvnanrgxBF9UNPq RPRxfB00jGDoMXbfCx4q u6D9k395SQMhFKFrdY16 Uf2foHgdNLIogIDKdF2k unqhm2dqezuvAaGx ZHJuPRi2EVy1IRMrkAoc RhCdAUD8JaL9DLW9qMNi jP7qwKvmdyitiR3dQhs+ POReJXOsyiM0K5Ww Pmj9IBWpuBloCH0srFLh YQkiNw9qdLqnlMjjNH1a BOPszvliXXAwsG5bEFPe fWExjCpyRI3oNYGz goeko596EnYoQBH6STEv uLDfR8LwkR3qNjQzAZDq BMNpP5ThaMTeDAblF525 DAvlDkZ9MOBvsqPt V7EeLFZdrIhiNcW1b0F0 Ec2KHXgPKH06FB67oEBh j7R5gAG4Q4KhSYFotsdv nofhfHE8QBOdQNYm pP32aLUwYXczQn3rf6X7 z536DZVgXKYvxK25Sl1k iVcxYYCscEAPjC9wdlwh e5fnypytJhRaCXRy LEh7UJb1XXDpuCppHrHw WKG9ZsE1URE6hHPypG0n kIgrcwrlkR4rCbf+T1A8 P5RuCioibBB+PC90 NRGqQY76hWAggYWcu7ff iTp3XqAcNIAoRFC2tXnt TMlai7HiRVBjC02cxESo y8Q8TMDviDunoSQy HgJfhTX6bN8lHWsxpheo l7gbpkseBfipp1nmoo61 iQ28O03eXMryWDKzOVKv SQSwKILtpPbjbw0r kP4oZv8+XTMdaOO7sWH5 sV5yPkLlYlN2KPnrY011 GaJmfFMoGxssq2ldo5yn hSm6QvHwMLKeeyLd wKpiQVO5l3MuAy40K19n IHdpZHRoPSIyMCUiIHZh cFigtv4thL6bNh5+PC9j r0vnpe56iK37dZI+ RXFxYLE0fDnqPTmnAYBu tJ6wUImaVtO3UZAsYsOu bJ66lEDjFEbdAa9reYmy jBngZT5lZBSdgbip a068DhJjb9jxJXVwlJEo IScrPVX8W92fm8Q9MSHc YGZpJYY1nSX0lF8uxRzb bjogbGVmdDsgdmVy fPheADauQRebQ967CRDv rSoqOiVmeKHjI5bdjxPD JV8zUnutnTQ+PHRkIHN0 rFogQGiaUFGdwV3o VPRxQ9v0PmZrRcL7KUga X3NbosG6QYLclFDbSNJy gAANxR7bhkwab0okvjob KmJoXNOnEHm0DRz4 ARScfJerRcDtXQY1YrB9 WSP3aYTohB4ogWeiktsp vE4uLll+RklOOjwvdGQ+ NGCeASU2aYexUKak SUKoqY3zIKIxT3b0SwOe EuB0IUkhY6QrhnH3GDUd hTMvDMBncDRUkL4mrqam a1mwwnxiNsXtLFFk BJk6ZZh5FFQoeVngXoQb LKS0GgI9HEE7sAFdqT4a sEjksmrplS2uBsv+TVJO OjwvdGQ+PHRkIHN0 uVvdMIpqCRDvxX3cMSOc X9j0WlNsJbW4HKgoX3Zf ldD3SJJnxRZqXLRnuLQM xD8gsendu3ipffnp EnHsZJVgLMd3IJo0XWKh oNrnXqPbXHC1WaN7UPU4 zIXmxX6cyWtbylbnsU1w Oyc+IIV7HLT7ZG02 SD74J4HeEnpooFZfxCT+ PHRhYmxlIHdpZHRoPScx ZLDwCcVhnIfoTU8lNl5w ZGVyLWNvbGxhcHNl OiB (more content not included)... [facility] Coding Summary HTMLBase 64 FznbfdrjQZp7rTq+PGhl YWQ+QF8FQSQuG71ikUMr eB4FD6cZTW2XVIMIWBIH RY2BDH1hjRR5JWxeX0Nb biAv AuqqmURhUZ46GWb7YJJ5 zBmwBSepuB4ecDWrB0b1 ItPvBJ48sZ85QVqhXLLw GmF2RoCsqrlshLEx L8atFsLxkXUaJre+PHRh YmxlIHdpZHRoPScxMDAl HnGdzFzpID1sZn3gHMFo LWNvbGxhcHNlOiBj y1rhYUYdZNyrMY7fjCjp B4LskHP0XGCjf2a8Oa61 dHI+MDJgZJR1dNraXFty t532GdLso1koDVX5 oEKeQNqwPAB2Q79kt5F6 NEBdOJCwEUB1yNT5vD1f qMdeynxnA9IcaEPzGdO4 NJW0aZMniP7hqVlk fxgnfR9hLfx+K82UAC3M OJWHOH5PFci6I2UwYflc dHI+VZ80GAIfSH92lMKj vJXsp6hsyPr2FtXn GXFlFJV7pPwyEKgjk0Ff KFMcW21vpFHav3S3MCMf hDkeqIDzGfAqjUT0gF3k CCjgkhcsj8hxmcua Qhdgs7qqzp01aY92K57f TZcjODQqPTP6LMVxFZWo mHrgsy1wxZ8tXi5+IDxj f4age3xhxKt7YsJp NCLxmrSztLfmKVT5x2Gg Wi37P4XnnYhhc9HsBdo6 yb73yGYwu1O1pPK6EJqh JVPmsP2uVQjePfP2 TDEtXnFnhM42cIQlJRlo Se5owGiynXsxBG0kXFCl dyncHLFttX4qPPIkeIGi iImoJG5lECYabgjr d564JcDbSXW2BLDtoBMa S7IfxV4mWzIpENBpSTBz U8NttRCoFUhhW701XWyw QeT8SAJzetTrJ1Pa AHOtsDzvRvU1m9V8Yp9G p8ChqidlRPZ1JDwwAON6 DdK9YrNyDwA7B7PuTzl0 JCBtfNouNQ2nR1Md IIUyarqobawrzVD9AKGa AGKgeM29nSUyTHmeDm9e e9G2g892XDYbXXLnoI10 Cu3daXfaSIXusXLN tM6igwuzy5lbmgzyYaNm VCUbORl4YEh0EWEtgNuc QhBeQSR9IaR7MGX3bPYn uD1ieSamszsxgQ3k Oyc+Z22thC4tKDB3POW9 qtkeSSRdilGoZU84OG73 H0VvThratZPwhHW+PGRp pgDyxHnvMN0qJhMv p7rvi6AnMCedG2ErOZXj SEcbNrh8CMVnXVN6dPU4 yB8tKEYhIRyaf5Y8wON2 Y8RwrhHofi5rs8pt OJPjSNtrA42otJQiu2U4 FIIrwDP5EVXtlOgpTbDq tQ93Kee+WPWegRvjd2Sx Wdjyi2kzy3prcXu4 IjMwJSIgdmFsaWduPSJ0 s8ClMi24H74sDYqpJFNd DOXoHTZpIOFbpIifqh2m xZ6oIg3+PGNvbCB3 vTN7zT4eXKHvJsP5DFiz X870WaRatNJuQtwjz0de p4uoxCj9FxBoFPRmslZt gLbeDLR9e2KyXw06 W66pGOicZWBzCYJqQAAf CTGuvGaxyo0czK4yWk4+ AH0fb1qgcb34yD77rUA+ MHAvUSR6nOxhHZtk QCNbiW2zJRkkWhJ8KICe HxEacD38tEVuNYmoTy9h tSzbiLefZU6xRNKzpfrj w190QvQtx8gkHUTi iFAdUTmhEAX7D86vi5G7 ENZjONKqBAA6kNH4aP8d bGlnbjogbGVmdDsgdmVy xTspHLvtSGmuX312 IHRvcDsnPlBhdGllbnQg OlYxSGh3Q5JyVit5AOPn hYemEL0haGNhFGmoQa3s sFfbqXljIL5cREKp frsqz785LjVaf8azLBCd kKGaSIfcMKX0U38hm5Y9 STCjHTOvSFW0oCK7aG9i bGlnbjogbGVmdDsg wbZqaUxvBFweTIcjY617 IHRvcDsnPkJpcnRoIERh aFS4PU76MD61eHRom1K7 eFQ7M9FmPLTvblqg dhowbRA7AEQbZLGafE01 Oz9ryAfnQh6gAQHvCEA4 YSByvDVlR7YsoO9fYwVy XFOgONFaI9VrxFAq UMceI906KDfxVtW4COMe xiTgU5WeBFGtcDvhHhP5 i0R6Ir2OI6R5NG16ON99 iNJor1K3dTM5J9He DEIzihhaxncqzWH9DCIb JLDtyL62Dc6vtXuqUi1w USGkJUE1WXIsrNHgA3Xp dT1cPeRiTBMxSXSu S7WhnTNiQTjsU878DDfm WeG1USVpdyUuS1PeYMGq iFcaSwY8y7Y7Ec5GUCa2 GZ07MN10dWAnx7Q6 qTI4E2OaTKIvansrqraa xYQ1LIJuXZKthC39Dm9i vSlyTb7tUUMaHEI7NOBo zSMyW3RicP7lQoDv TPWdAAVvK6IpdONgCZbh I078ZMtrWmO0DNBbbeHw F7PhJRCixIqbZcW8l2S3 Pz1QKFItIK00ZUL8 gZH7VX84VG64B0KfBfca dGFibGU+PHRhYmxlIHdp ZHRoPScxMDAlJyBzdHls UF8xKw3yVJBrOTAb jYbxoOHqOgDjb3lmXNTl FLtxMW1tgLesX7HziDP6 IKBub2r9Uc16B53yX2Yq dXA+XYVuwAK5sXS6 aH3sNbUwBoA4HMagH002 ZoKtxKOfXfdmm2yvn1jo tIe8SiT4LGZbtpCgkFrt UIS6m6LdXp70E03g IHdpZHRoPSIxNSUiIHZh kThqlg9ffT7uYb5+PGNv bNS4lNG8nO0zCnLmOzR3 GMgiO325DhRdzXXt Vjkyh5dsu1ncjFy7VfOp DOKryqNovJpkFHH6x9Gq Lj67T6CstTtqr7OpPvw5 fq22lDQfw6F2dGO3 O5KaZYOvbgpnzGMdgEmz LZ5qQIZdewtcZCUocY4q UTFpK7s6JgIrFfJ9LGez G8JksnJ4HOLyjIPp NPqxYNW3E47vi2E4CQOi TLAwBRN1iDY9hD9vnCdk bjogbGVmdDsgdmVydGlj FQbvWHgzM142IMJg fDdaSHTogW8wEYUsoGXo nPhrLF2oSMEscxrdAcQE A5XIL05ITPEBM8JFVtId GDgBWN93D9VjVob0 YQLsdLgyKF5vfIRzMJok Rc8fqAfzcSsuWH0oKVLo hqgpUUYwaR4mAIQqbOEw rMvzCT5xROXllvnm d291VcJrOSD2QUYllGOi A1RaxY8aBiGcRWRqKARv Z6FxjJOdXZyzS454QNep CuA0APUqiiWkZ4Kc NJXloHrwIdY7d0N7Qq9p YR8yMy4aEQJ4OV98VH97 vXNut4I7wWH1S7GxVXKr bdihyfjuvED4YBSr ILCcoU82gBDwTFncOv8p k9N4o934TYKdOXJnbG99 Jw0uxOlyOZSuuVMExF2h dohxs6lfagltFtXz HKCnOVh9RWb0JFEuuZvr HzWgDPE4AgH3SIB3tTUg vW2hiAcpdzxclE6cJgw+ LHSbAYSxqcQ0E9Kv Rmi0WVQwuJnhHN4ojJSv BRzvOh7jtPibgCljZN0y BBEfgmpdKUIlnP3dWIMk rHMydKvgJU4jMNNh jskqd599YgExLUO0XXFj tFGaS2NyvF0nChOqCLUq UFHwQ0SclKGyQVsfW654 WHazZtD3ZGQzfuEa A6ViYRUweLbtXkI5g4A9 Jv5UARbMSL46TV32fYKt m4C8jBA1L7HvVXZglilm rcbxaSV6XVXoNNNy kM39gEIyTUjxYn0zl9T9 i878EEKhEJOtjL72Ld9s qOvaEAIcbPHSaU2qrpva w5hmaranHjQjJSJu AJm7UCy2XIRovSigQhCu REG6YyI9CZQ1iSQgqV9t lHgfmepbeT5wUjf+RW1l kpzoizV8UC24DV57 D6NeIehkkAPzvKC+PHRh YmxlIHdpZHRoPScxMDAl DwHdtBcpHU3cGd3yDEFz LWNvbGxhcHNlOiBj o6dxXUGqNUtyZP8buRtc T6QkqCP2BWZoh8l7Po00 O30tX4TupDG+PGNvbCB3 tME0bC7dBuOuMbC6 IXfgW693EkDluYWaCrcw o9jvt7ojbEx0TxJqSMOz ywSukKseNMA0i8HvGm50 A58oOVdeTWGeKRJr LPKjZHJlwDlpjv4oxZ5r Ii8+OIZpmUV9pPK3rC1v DaQjNkL6TMceV925JxHl iNUhBxbqP21wA3Vn dXA+BPBgYwe3PFKwjBhw FP9meTFsTRxrFh0aUTV0 MeAeRkZcDCktE7QwMTOo uxtysnniaHS7BCVl KSGehB79Kv0teIfeZt3k GMSuXYI6ICVqrLIsW1Vv hE2yHkMcNRDzTAPtY8Yd mCXtVRbkW311GFxb WnX4MQQhwxJwK6CcXGUl cEgnDrN0g1J3Hx2CgGis tGShHA6uFrPfPPz7J2Lv Vki1GNIzcLowTC5t eJXoDTjgJt2zuLxroUoj YS6iEBOsbatsa266QxWl v2tlKHEsbDLdHWjhATC3 J39ms8F9WHXqXKGw ATK4wEE1oD7vrIleehqz bGVmdDsgdmVydGljYWwt LEpmX654TGZuwJelUcYC Pmx1Y3AxJci8ORZg nRzePH6eoOWrOKqyKi4z lNszdJtyYM0yTTOzhvdv d049UvYds7gxKINrgYIc ROgjWHH4V81vb3H8 PNLtPOCxMTK0mDM9oL0x bGlnbjogbGVmdDsgdmVy pVfxTPbgGIooG593KQTj aRdbQy9SUav3V5Ig Eaq2YNPlnAezYI3tgJUk VUixIw6szMzqeDwkNK4v NLZibvrsm980SqZjb1wj IDEwcHQgVGltZXM7 D28wj1U1MAOqIWQgYNG2 vCR0qE9cqVgagubclPHh dDsgdmVydGljYWwtYWxp V563PPEntEnkXwPy eWVyOjwvdGQ+SX07ds24 A5LeZnqoAhb5VQRcGOM2 pKX3eE3dPXRwWVpde6B6 dPM1D0JriuZofg5p b2x (more content not included)... Normal [facility] ED Clinical Summaryon 2021 ED Clinical Summary [facility] - Emergency Department [address] [place] [id number] ED Clinical Summary PERSON INFORMATION Name: ROSA EASTMAN Age: 56 Years Sex: MALE : 1965 MRN: Acct#: Visit Reason: Hand pain-swelling; RT HAND SWELLING/NUMBNESS AND TINGLING Arrival: 02/05/2022 14:13:58 Discharge: 02/05/2022 15:08:00 LOS: 000 00:55 Check In: 02/05/2022 14:13:58 Checkout:02/05/2022 15:08:00 Address: [address] [place], [place] [id number] PCP: Britt Goodman DO PROVIDER INFORMATION Provider [...] Follow-Up: With: Address: When: Andrew Mckenzie DO [address] [place] [address] [phone] Within 3 to 5 days Comments: Diagnosis [...] to [facility]. Return to the emergency department for worsening symptoms or concerns, acute shortness of breath, chest pain, abdominal pain, nausea or vomiting, or any questions. DIAGNOSIS: 1:Cubital tunnel syndrome on right; 2:Paresthesia of hand Patient Understands: Yes - Patient/family/careg iver verbalizes understanding of instructions given Comment: Normal [facility] ED Note-Nursingon 02-05-2022 ED Note-Nursing Pt presents to the ED with right hand numbness and tingling that started Friday. Pt also states swelling, none seen at this time. Pt states a hx of surgery to his right Arm for a pinched nerve 3 years ago. Normal [facility] ED Patient Summaryon 022 ED Patient Summary [facility] - Emergency Department [address] [place] [address] PATIENT DISCHARGE INSTRUCTIONS Patient Information Name: ROSA EASTMAN Age: 56 Years Date of : 1965 Reason For Visit: Hand pain-swelling; RT HAND SWELLING/NUMBNESS AND TINGLING Arrival Time: 02/05/2022 14:13:58 Primary Care Physician: Britt Goodman DO Attending Physician: Lennie Wilcox MD Comment: Visit Diagnosis: Diagnoses This Visit Cubital tunnel syndrome on right (G56.21) Hand pain-swelling ([id number]) Paresthesia of hand (R20.2) Prescription Information: If you have been given a prescription for narcotics, seek immediate medical attention if you have any difficulty breathing or any sudden status changes such as confusion and sleepiness. If you or anyone you know is experiencing suicidal thoughts, mental health, alcohol and/or drug addiction problems; contact the [facility] 02/06 Crisis Hotline -Text [id number] gl [id number]. If you received any narcotics, sedation, or [...] documents With: Address: When: Andrew Mckenzie DO [address] [place] [address] Within 3 to 5 days Comments: Diagnosis [...] for reevaluation. Prescription is electronically sent to [facility]. Return to the emergency department for worsening symptoms or concerns, acute shortness of breath, chest pain, abdominal pain, nausea or vomiting, or any questions. Medication Information: The exam and treatment you received today in the [facility] Emergency Department were for an urgent problem and are not intended as complete care. It is important for you to follow up with a doctor, nurse practitioner, or physician?s clinical assistant professor for ongoing care. If your symptoms become [...] so we can reach you if necessary. [facility] Emergency Department has provided you with a complete list of medications post discharge. Please inform your logging crew supervisor/provider of your visit and for further instruction on these medications. Any specific questions regarding your chronic medications and dosages should be discussed with your primary care physician(s) and/or pharmacist. New Medications [facility], [address], [place] [id number], [phone] predniSONE (predniSONE 20 mg oral tablet) 2 tab(s) Oral every day for 5 Days. Refills: 0. Additional medications on your home medication list not specifically addressed. Please contact the ordering physician if you have questions about these medications. acetaminophen-hydroc odone (hydrocodone-acetami nophen 5 mg-325 mg ([place] 5)) 1 tab(s) Oral Every 6 hours as needed as needed for pain. latanoprost ophthalmic (latanoprost 0.005% ophthalmic solution) 1 Drops Ophthalmic once a day (at bedtime). both eyes. Visit Information Allergies: Substance Reaction Symptoms Type Comments Bee Stings Drug penicillins Drug Vi (more content not included)... [facility] Provider Orderson 10-18-2021 Provider Orders [id number] #[id number] [facility] Coding Summaryon 10-15-2021 Coding Summary HTMLBase 64 VywlolwqIZx4nLf+PGhl YWQ+MH6SIMVwC25xvPXa gQ0AS8fMGR4YUXMTICTD GA1GKL7fbDN9XFnzY5Il biAv JcsxcNQhZD78KWf1GYR5 oYluZYtpoL8gtGDbH4q4 IcMeTC11oB46YOfmCQHb GwX9BgUegwraiKGm A4giWuDoyNQbTpp+PHRh YmxlIHdpZHRoPScxMDAl AuLkqRdxQT4yRe8dBLCn LWNvbGxhcHNlOiBj f2tnWMUhFXeiWP6qaNdt L1BywWK1PGIrk4y2Hl14 dHI+OXSyRLY3hKioYJsa w723KbUgx1nhYEI2 aFHaMIobAGK2Y95mw1O2 JEMcPVUfRFW0sVZ6cK2f pQvyylhmH1UqgDBrUrN3 ESP5xYWvlS3drIlc wyccpU9nExk+N10XXO8C BQRHTE3HJvv8Q3QeFjfx dHI+SY53DCFgMV77hZQk sOLkp6nmmQo1DxAr EFDaEXI6iPikOBshr1Jr KJCsS97pwWUos9I0HTTl aWbtnGMyLwIcuUB1vI3i DJhrvxnpx6vsbfxd Iprgz0yfqr61eT81C36c GTqdCMQeXXO9UJUsFOWk yTdspx6tlI9zWb5+IDxj r0tax7ztnLn2DiWa XQLhbqJjvUvtHZX4a5Op Ot62V1EbuGygu1VvMrw2 ep83sYXip8G0xFV2KTaq AZDgxA7tBOhsPfD1 ZNIwBrLrcJ94bOKdFZhw Fk1jiKzqyIylKR6fEEAc jfxcUDGagZ2dRNWytYLf mBwfGZ1tAMZyczhx w507RpTbDYI3BETucMFm P5RrqV4vCzBbMVKqOOMs B3PdkATaZPlpU368HRre AbA6BENoogAqO2Gu OSZlmIwjTjU2z0R3Vh6O i0JccpqpQHX1QCdeXPWb ZrD7YlYlUjQ8L2YuNcc0 UKPebYmzNY7yQ4Zi YHOzaaoiphvrgEF4XAPr YHRczH80eUAgOEwpKx6g z7P2c120JKAzKROxoF89 Sh8auAwyPUTsgTBQ hE0xfarcq2hlvjjrYyQy QMCeBXe0NKa1OGVkfDgd HxNrEEK3NuI3GEV8iFMk eN6fuPiambouwP9m Oyc+T75pvB2bOFW2JHL6 zgapWQYoszCoNF11CV63 G1QjCxtwhEWiqPM+PGRp qdYofRliZW7fBzEo x7diu7BiTKdeU5AnJTLb OPmfWbv3OGNyNPZ8eZK8 zF9jGTHaHLeso2P2eXM2 L1WwgqVklk0gm2fg TYSkIBsaS20oeZQxk7H3 IRGmzER9KCSfwQztItUq jH15Kkv+TNYqkHxru4Sd Jdiff9yfh6bzqYa5 IjMwJSIgdmFsaWduPSJ0 j2KkJu52E85fBReqLFGc BJHtTVXlGSDjvImeev5r kN2pRx7+PGNvbCB3 gOR4hY7lURCrGgZ3PZad P188KoVopMIsLoqlu6om b7gfiHw7GgHfILYplrGb nPdoQFT7t1HiAm30 C27mKHphOOMlIOKaQMRv BGBywFqmti9lyD4fRr8+ XY6af3qkig09bZ69tIK+ QYUvQKF7mHpqYBbk QHGscA8qKVgpWoE7UJPj HkCqoZ08tSSeYKwqUa2f aRchpOuyFI0aRHNriruj n198ZcEjk9mnXWXw fYVcREssHAW6Z28re8N2 NSYkIVIxRFC4mGK2rV5h bGlnbjogbGVmdDsgdmVy wLmlIWzrTFknI661 IHRvcDsnPlBhdGllbnQg PsNuTZs9C2LjMut8AYEj oLteTW9yxZKeUXnxSy7c zShbcUlnWO6eSQUl krejm329CvRgu1uyNYUu tBApDEbhGOH0S17xv2F3 KSVxFPRhVXK2rFZ6kX0q bGlnbjogbGVmdDsg jhNonTuwQPwrIZirB548 IHRvcDsnPkJpcnRoIERh iQC0PR84RG06dAHcm7B5 cWR3L3UlVTQabkkq rdgwhRV5SKQhCEXnmP57 Li1epAzcPt9rMSFhLDR1 GYUxjXRtA5GgmU1xKmJq JVTeILPcA6XllPTv MCebE751AYwyEoJ2CMOd tsRzL1ImJYCtfEzhVsH2 g9I2Yo6JH6A7UF16KQ61 dTXwr2M8gIE0H4Jy FZZargecdrhueCI9LJIj LRRyaP60Tc4ygKrvPp7g INSkLEV1EGNsjSXzO6Ka dY1tJsPwUJLxQZZy I5HhwDFaCZlvX416IUwc ZiO7UNDnkaWmU0EbVQWn nLpxItE9w5U2Zr1WJAg7 RS48OX90sLOsl4N8 bDN1J4DhHAEmqijhhlio mDO1MVAzMEQnkW31Mj7b zTqgTk2lSUUtCVN1RHGj kCSlJ7AmuJ2hZxTu JUOrBINiW4NukTZnDVpr I194NGlbRpX4TMUulcLy X5MjZDCxbCdlRqM7n3N9 Ku2IFWMsUM64FPG0 fBD6RO93ST43Z8XkBqdv dGFibGU+PHRhYmxlIHdp ZHRoPScxMDAlJyBzdHls ZC5lVx7kHRJgCSXl mKmikBPgYiAxf8ioMLDs PWfwQB1lcQqoZ2NnyIP3 OMLqu1w2Jb04D16mD5Za dXA+KDSoeNX8tTV9 vQ4sSrBrTdE4TJjtL584 PtRslUXhRhezv7lsk7qy aCm6KhI9NWRcswHoxBnt PVR5a4TlRn55B96j IHdpZHRoPSIxNSUiIHZh fXouhp1gbQ3cJa6+PGNv tHD7cUP0kU6bHpZlGeE3 DZyvM294EvBbtIEs Hcojg5fji4aotWx6TqId BFYttdCtaVbzIYQ9q1Wp Ea02F1HypQrpa2GnXwi6 kf31rBNlg4T7pJE5 K7ObWVBaqsrozMLkdFxs CI9oHWKkgqmoHYNvaA4m ERCqC1v6EtAaWsK3LFij Z9TotsH6TIZasTTd UXjgUWX3U77sr8F9MNGg IDRaEQK0cFX7rT5zwLwr bjogbGVmdDsgdmVydGlj MMioEQheQ782ZSUe bWtqQEXxrF2jULXqjINa pNstRL1pOFBfvkbqVrWV B2ZFS42IBWIKT1EZImQd ECvDSY93K9NhLkb6 ROLotXlaWA5gjPBtYXrg Qj9rdLkfaVrcMO1jPGPy vhoqBKJalE2sOACguTYz xFbfJW2eVALydxzt x528DtVfZES4HVTlpLMo Y3NipK2cChGcUPAzFUSf P9JtbSXiEGsjW437FYqy UzR1AEMbeqAxH7Gg ERUjgTasCcG3b2K6Uo0t NY8iWr1lWHU1NY91KV53 oYDfs1G4vKV7O1VnECBb rnvpshfevTY5HFEd KTFlnA25fURmJOriFp1h m5P2p660LRVxBTDtfH43 It5orEvrPWWzeYYJlO4c lmhwb6jsmycvRnOv VDCyKEe3XVk1MUFpwJks HnHcHTB3PwZ7VTW3tRCe nY7aoAvsbtnfsF3tLee+ HZEqCCRstfN0C0Pi Aoe9ECUdsBbiFX0wgHXx CAfoHy0xdXeczGjrLQ6f LMDjccbdVDXfjE4aBBKg mQSxkMchAW9zEJFp jrios003GlMuVQK7SXEq gYXhB0CdjM9uCrRzLPRk LHGmT3XwdMBrDEytS114 ISzcOtH1AOLqyiSg B4StNLRbrYttXwH5y2K4 Rj4WMHuDSS73UO21xRBs i3L4dOL1F9MuXUUaxdwu bakbvKD9OGErWPXn kJ43kGPcRYkoJw5pe2B9 m982UPJkMZAlnI37Ov9d oOlrHQFnnKWLcR3oflpz j4rjxwnsHwMmVTSf RLu9TUb2LAAycGmbAyFj SLV7ThL6AUG6sBFwyL0r rOrscwplaN9aMap+T1A8 N4YeApghlSR+PC90 IGNnVH86jOXkuDAfa2os tKy8OpKyHJMiJAO8wSao OZytz3QpFMOhA58qmCSe x4T4KPBuqNyatCLb EeLdbAP9wJ2qZJtgivtx l4jdalsuHthst7pcnz97 lR30Z37qQDbgPBMuZXPs PYKhATVoyMgehv9b eR3sKr3+DFYudCY9oCX5 oO0rRzVoPpP0HAauX619 HhSqaBVnZddzj5ukq7bz bXu1DcMrGVLcwoBa oRozMKA1o5IlZd77R53l IHdpZHRoPSIyMCUiIHZh vRxbjs8zuC9tMe1+PC9j v0fwrv85eE45kTW+ MUBjPKX4lDweNSybNRTo nK1aEWciMyZ8SIQnKhTs pR79nPZyKHksSj4vyFqz cZumLF5yQAQtbpuh t080BwJry5phDCTnrRHl JSfoIHG6I15yf1A4RDIk ZLYsDFI0sOI9oI0edPbu bjogbGVmdDsgdmVy aPhuJFngTEkpD710ZYMl eXszGmAojRVaQ6hojdHQ EK8vJyzuyUQ+PHRkIHN0 pIgvGCysOPDqlY0j UXGhJ3y4ZrJsZyB8AOfc I5UsmhS6UHCynIGeHCKd mMNVsQ5nbjdex3msrjsc FpQyJGTlZAc6GVh3 VCQkwNplUySxMQB0EkM0 JET5dIWayH4doEntejlo uG3ePfz+RklOOjwvdGQ+ VGImFGR7mZfxPIif IGLkrN2ySCHjA0i8JqRo GdC9SVrmH8OgbdQ5YPVt pXAmZWKcvZYMxZ9wikhb p9byxtfjTnCnVBGs XUf6OKu5NXJesIlxMdPo IAJ6AiU8OFD8uNStgH4u tYygmytolT5iZxf+TVJO OjwvdGQ+PHRkIHN0 yIxkHBvkRTSdfS9sPDBk C8j4CkOiXgI1XDsnE4Zt qrW0KIFhdSKwTSGpmKDR rK6izzeop9fugjko OsEcJCCzZEd7LIf4MAXb rFglJrJfLYG6WiD5YFV0 cDJrmY7qoVadcpbguD3s Oyc+FSA2KDT3AC36 BU01K8ZbYntlhYAukMS+ PHRhYmxlIHdpZHRoPScx CJEgLlCvbIwbOL8hXf7d ZGVyLWNvbGxhcHNl OiB (more content not included)... [facility] Rad - MRI Reporton Rad - MRI Report [id number] [facility] MRA Neck w/o Contraston 0 MRA Neck w/o Contrast EXAMINATION: MRA Neck [...] Torre MD 10/12/21 7:46 am Technologist: JERRI [facility] Coding Summaryon 08-30-2021 Coding Summary HTMLBase 64 NbnzyqqcYEq2qLf+PGhl YWQ+HO4RKJPmV87abJDo eW1YD8hGEU5JBHUFMUEM YJ4SIC3xvRR4QClvX6Kv biAv IehrbYVrCM07VBf4BEF7 tPvtZGujzO4pdMPwK0f5 HmXzTS24pJ48YMyzDRAo OrE2JmSlkqcmkDZj I3plQxEchHYyLtd+PHRh YmxlIHdpZHRoPScxMDAl QsDcsTtgQB6mAb4sIKUu LWNvbGxhcHNlOiBj w3coYIYyMUrtNF0qxYms R2UhxGZ0UUFpd4o4Nj48 dHI+EPMqTMJ0oAeqFNim f085FmEiz4cdZGO8 gYEiYCrhRIQ0X23ii0L2 HKVxSJUtGFW7uPR7eQ3x oNbvygsdX8QmeUPcMwG1 ZOD2lOZqgG7lqWef cqplpS3gRuc+B15ALW1I SLWCCE7ZTtb9C8QiTfiz dHI+BC68GAWpLZ31oYPd tEVqv4iduSv9AuQc UKDzMUV2kMfdZTgio4Iw DMIgD96ufURpj2W3SIBe tEmkwEEnSiMjkCD1vN1t CFnzziamq1mldtdj Kqfjg0gysy73cK82W40b BErfFEQoTTF8OHFwPCZm qSxsqe0dvL7pGk5+IDxj r3ssb4wzwQp5WcKw FHQfroCcjOyiYIW5f2Nz Xy46I1NteXgxk5XuFnc6 xt21eBOdf4K2oIH5GLwm LMVtoY2qKWytXgQ2 NISpSdMynQ69bORaYDvn Yi6ffScczUvwWU0zFSPh nwdcVJCwmO6fHMTmeGRh tUxxUN0cZGCkwmqg q342GbEvYCS8LIBemSAn F9UkqF1fJjFcNDYlBSBw L6PrgZJdHXigE319IMtc OeJ3ANDvgmLrS3Ms GFUihLkhFtL2o7W7Gz8V h9EnvdkhMZT6ANeuHIRf ZkDpWwHuSmS1C3WnVzr9 ZSRpyKphSW7bS9Ct IAPqubxcjzjtcOF7NCSu LVFljW11uULqBVmqBc5o e0P4o478VHHfEHFmaP70 Mu8esJheJANjjZWV dP7vyoqtb9xxnedxNtVq YAQtJTe0CEn5SKRlvPre ZlYzNRK2KcX7FXL9vKFw pS2jfOvtbdbuaO0c Oyc+E77hsP7dBMI3ZZP3 gairHWDljuQjJP46QT01 T9QyBlckkBNvxXG+PGRp byQfyRabKT2kPnBw p7uuj1NdOQniE4KuJYOn BTnvQpk4BNQbJHO8zIA8 lU2nIDBnJVmfd1T7uBL8 W7JkstJvfh1ah5kz IHIgZFleP25bePHjs4V8 BTMfdAI9BDIbzRoxMuUg uT61Dhm+KBCpnOvha9Cp Mcmus7nww9mdfBh7 IjMwJSIgdmFsaWduPSJ0 g9FsWm95K11vRXjlVUDu TTDzLOEfCXVijTyqny2c jE9fDy1+PGNvbCB3 rLJ7gD7lRHYeKoK9DXfx P794DtQzsWRrHlimb1hf g9rwzVa5HvGsMTFnkfEs zCibOCO7d2LpQz79 C68kKFdnLOErRDQdEMJl HWXzbBztir7gdM2lKo0+ MU2tz7uaat73aV61jWE+ OWZdZTT1mSwwLBiu WNVhjT8lAOdfVzI4VEXr RaAmjB92dWAkHJccYr4v jTkhjDsvHT6zALRbnlpn r386BvXtn4wcRSKj aYPbWRfsXIO1B94lu6L0 YTCwQMObVKB6uEV7yP0a bGlnbjogbGVmdDsgdmVy jDcwXOvzAVduT836 IHRvcDsnPlBhdGllbnQg SiWkAWx2P5XoJzx2JPYk wPigKO5jaXYuRSvbLf8m kNrbmAmaEK5oIGPq pxbhg027SqGrq4rfBLBf dHCbLXxzPIX9M23cb6Y0 AAIxUWXjJNV7yQL0qN4d bGlnbjogbGVmdDsg zyBehHxnEUxqOPlfL247 IHRvcDsnPkJpcnRoIERh qOH8UQ96NT23zXBzs0B4 tNH3S9IjOFMfnlqb uyjdeYF6HQItPEOciW63 Dc3jeZkvDz6xJSGxVWC3 NGMijZKzK4VgwK4oVnYr EGBvNHStY8DqtUAc FUslN136MPeuWfW7PNOj bsIyE6IqGWBgoVfcIyU5 l8B7Vi1ZN4R6ES30IB55 fXCzj7Y9hGA5I0Vl WVVmptafkvascCW4CTRi TJGyzN80Id3xdHlfKa7i TJQaJJI8YRSegSUkB5Xk vB4pGqSoOPEqJJFc L9JquHFtCZfrE742HQzp RpN6VTSemzIrX1BgGCGo iCfuZhJ2n2F0Fn3WOTd5 LG54VM53cEScp7O3 dIE5F7BoBGDbasyvjvtv gDJ0PNAvHYWymY89Kj9p vCtwBd6sSYNvVSA9DPJu jMPnL5OtoM9jGjAt BXDtOVUaE5FueUHjNNbk C260XJcgLoQ0RRRqpgPm B7ClCFUueFyiUpM9a5J1 Ea5PELJgPI18SQV8 dLC8TR77WF38I0PfAvqd dGFibGU+PHRhYmxlIHdp ZHRoPScxMDAlJyBzdHls HT8qOe3tNARjJLXa mCsppZHpTeEke7lbZVAc NWkaXD2eqWupP0BffMF4 LLStj0h1Lf22W37yZ6Is dXA+PRFvmSN3mEV3 yW9oAjLbVbQ9POdcX861 TdWttJEfXdlnm3skr2zm iAw4YrG7TDPrnrQoqAyi EXL2g7QnIe14V56r IHdpZHRoPSIxNSUiIHZh sScgqw2ysA2jHp2+PGNv iCD9hPR3rW7uNpMxOlW2 SAdoR971ThXveYMg Pmfss1akw6bbxEa2JhJa CKLamuQrxUouGOM7u6Ls Mr06N0XtuSnrf9SpCej0 ns76wUIev9P6vSC0 K6LpHQUziknyxHUqzOpa MO2hJFZzkthwXKDzfV2x LXRqF0z4VqKrLjE9TAmp U3OjqnH7GCFjvAWs TZvfIEE6G02hu9R5HONw TAMeLIO0wPN2kU8rlHmp bjogbGVmdDsgdmVydGlj BVmwPNppO172OXEs sDstVYFhgY7eMNOfyTFz iHobIZ6mVVTwnqckDvPQ S5CUJ19SCHAGG7BHGtQf WGoPOY23A7XeZec7 RBRyiHyaEN6meMCiVXwh Kh8coBbtyXesXL2nCMPy vajcCMCozG0pLDOgbSSz cIyhKE1cLKNqycoc s061HrMvYNE9VDJlbTAd R3WlfV1dPuAaRJLbQZJm D8YjvSWlZGddZ351SHlu TsM0PXZuibEsK9Tp UGOebYjnBxP2h8T3Pw4h ER5tSu8nGME2EQ16EV24 jYVel3F8jDA1K2QtDVPr dlttnimowVL8XGCu PTUboO96tKNlHCdcLg7j t0B3q372MQGlDFEenN81 Zu9ubKwaDDCfmINUhD1h rsakl9ksnyghZiOb RTMdONf1UMm4FTMpgYgz GkKePKR7FeY4ZTI4dTUj nJ6ozLfnjuktwY6sFpm+ ROIqQSRbhtP8Y3Eh Zcs2VJZakJtfQO8nxKAx DMfvZu5voIqfmZeyRW2u PDGmggnrRZXjsP0cOJJx tLRwtAzcKB2sZUDw tjcvk947QcCsRVK0ZGQu pEVkW4RddC5tEhJjSULz YCHuY2HzoWFeTVanC883 NXpaFeC4ZMZaceXv Z0QjNHCxqKxzTpT8s3Z4 Qt6COUnTBK27ZW47tTNr o7X7uQG6R8UgUDZmebyr uniumHZ3XAEtAVVj aU76oZDrSGkbSg6cf6U4 w687FWGsCFEezV54Pf6j qDfxHFPjdPTNaO4fxtpq y4cdyimrJhEnAEPz IQt4EMm1PUOcjMplMkUx TYA9ImR9CXC2cQNisK5k jQhrjkdimP0hAdv+T1A8 C5BxCvfkpDB+PC90 CPKcHB61wBNrcGDne2kb hIz5CeYpMHJvUHO7lJyx VEsff0MsDRKrJ03faORc g5Q3MTHnyGtttVLa HqXuxWQ5sT6fARgsabcb k8nlglzjOwokg2rffy57 gJ05P99zFYwxKKZhLJFf DUMkXTTskNqimg9e mW5tXc5+FNVqmZQ8vQV4 jQ3mJoPxEvD5XRzbE126 RhEmnXWgRdyit6kpj5zz zJj5WxXrCDNqwpPf cGqjNAM2x7WrNg92O38x IHdpZHRoPSIyMCUiIHZh kSslse2hgN3qBl3+PC9j t2gwdh00eT58lRU+ XHErMVC8nGvbBArpBFLd lG5mIEgpXzC1UGIxEuUm cG27mBWhBIpvWw3opRdy zBelQW0oVFHnzmun e740BvFbo7ajZAUybEZv CVpdSKD7Z60gt9V5TRLh PYIpOSW6nTS6zD8ydOdl bjogbGVmdDsgdmVy dJjlEDuxFQonM049CBLa jYvdNkEueXUkC0auqaFU JE0vWdapfLU+PHRkIHN0 nLybCGoyOIZwuC9s AQNuT7y9FoGkZtH8OLvs J8ExczS0ALHycRUqKITu xIKWxF9yagtib3lnduts MtYsGLOeNRo6QGl4 GZLvfPyxTtLvRCU1AkB9 TCV8fMThdG6xpOlxohpb pX2uLcz+RklOOjwvdGQ+ PEHiOGZ8bCrbSWxw CSAnyW3uBERhX1r7OdXr AkQ0DTkmO1YwjfQ2UKAe mARoMIRlmZTEyE2wzfxi j5vaoybjZzNxFIRj TAx9DKy8BAAonAlpZrKy ZOR2NeL8DQY3dCQzfL6t tXqphxhjxV1sEpa+TVJO OjwvdGQ+PHRkIHN0 gYhxNLekVSNwtB8eZGPy U4e0OsTaHgF4BGtqQ8Mp rbJ5ELKttPUsTFHatTEB yK2jqdoxq2xfjiml ZkPjNVOgDSu1SPc0AVAt lJtlJnXeFYS0LbC8NVR6 lAYyvK7wwEetrptsqI3q Oyc+YKZ5BFH4RJ77 KY15Q9QdWkfwtGDedXX+ PHRhYmxlIHdpZHRoPScx RPEaWiWpfGmoJR2nCb2x ZGVyLWNvbGxhcHNl OiB (more content not included)... [facility] Coding Summaryon 08-29-2021 Coding Summary HTMLBase 64 KbthiifcJOo8hCr+PGhl YWQ+RL6TIOQeI05iiOQj aS8AF1wXWJ9IWXKLNGMM FL2TGW7uzRD6JQenR9Sk biAv RominMThNF42KZv3SBL2 yRhoBMmixM4uwIBnQ3a9 AaMvBB19vQ39PTvuTVVp GpX7EyImfyjiaQSp W9jaXiIfjFLfOaa+PHRh YmxlIHdpZHRoPScxMDAl MnRauWvmZS7uZy2eBCAx LWNvbGxhcHNlOiBj l7fsPDXjOGshZV6mmKyj J7MuoWK4SLFuu7b6Qj33 dHI+MQRoKMA6mSocJLay h675ZmKcj4auAHL8 aKHxDNfcXOC5O72wa6F6 HSYsLFIgKIK1aAL7qP8r lJbnbovzA9AchDOpQcN4 MZN2aFKmuU4sbWdk ukkubH4tMkx+H03RGO1L YSZFUY9WXxb8P8FnJeao dHI+CV50WUXmRJ21zFCl fYGpd5yluDl6WiKi TJInUPV4uMaqCMwnl4Xx EHQkZ63bsYUtk4E4FEVz aKbiuBEbPcFjzHQ7uJ5o FWyeomcyq4yitaph Voyeo6jeqo26sR04N21r HNxxQQJvZNP2PFTeLUPm oXliqj5pfH4oWu7+IDxj t0zus7eflGl1TtQk JPSpirXxbWtlKAZ8y9Ql Ci87P6RbeOzsl4QwBbg3 et15oMXhq1W3aES7RSbu AJLjnA7jXIhgInJ6 SCLoKzTplQ69gBOuDPfz Zo9beGhzmSiuBF9jTUEq geypFNXegG1aCLGqyWFj zQhrYV7rSQJviapf w213ReGvPSC2QIXcfLCb S7EoeF0lSqXiHZYdRMFm B5QryXLbQYqfJ647GYxk CkN2VKTixsTyU6Hl RLRxmRdxElO0m1K8Lk7T k6LlcmcvJAO5CEcsHQTd OeXqCbPoDnC3G3KzDtl5 AVHgtRriRQ0bQ3Mf PBWspzpykwqctVR2MMGp HSFokW10oTXpXSthMf2l s7K9i918KFSuVZVadD92 Ox1ivKiiJNPgxSOU pH2nnrdeq5jrwmfeHeWa OSOtBZk9YAk6GTGvcUhk JzOiWSI6NnL5HRZ5hWGx pY2fxZirstbngQ7j Oyc+A80whV1wJPW0BEV3 qgneYAXkmhXcAQ87MG30 D4VoWyrddNUhcTB+PGRp tfZjqHzgFX9uLdRb m7xat6DcSKzdQ8FtUDLv ZPhiMck7WBPvHTN3tFV9 gB1oUBDfHQmie1L2qNH5 D4JtstHmek6ae8iw AOPdVZydW38pvREbz1C0 UEOivTB5JTIyzSybFtKb sD82Qpn+PCAhnIsah9Tw Lquyd3jvi5iuvQg4 IjMwJSIgdmFsaWduPSJ0 b1VcKd22C81ySAhfPXHk DBKnJFTmPIKjmIrmko0a sF3qMb7+PGNvbCB3 aBK8hW2iMKYtNaL0RKpr Q600CxUkvQVzTutsj0fo s8uqgQf5MxFpYVEkuuYj hRdzQRE8f4MgRk26 Z16hIFpzQTMzHALeLLEi QEFtdIlrgg0ofT1pZy0+ YR3jo5czeq24rF72mHQ+ UTOdNWV1oFnwFAbv BYXywL2yVRjkEjG7RINx AwClfW49pXTyATrzIl1l wKkdnPeoKN7aGSOgmpdr w403AcDkc3znWIGm aKVlHVrdTZD7F70wq4S4 ICZzGRCqXNJ4rJF9pK2u bGlnbjogbGVmdDsgdmVy oVolCIgiZMroZ636 IHRvcDsnPlBhdGllbnQg WdFfQMb0Y3NhXnl1CZWw oKcdUK5khLLcICuoKf9x wYefdIjaKI4eGGIz cinhv344CzOrp0qlFTAx yELlWApwBPC0R01jk2O4 JPNxCJMdMOJ5mXP9hX0i bGlnbjogbGVmdDsg pzWopRwnPDytCUgoO920 IHRvcDsnPkJpcnRoIERh mGT8DO82NE23yODrx9Y4 qNL2F3NeQMXybood tptguEF4WZFtDKAfrB16 Bn1ouRkgDn9zMOMhJCL3 TYRwiFDtC0SctV0nTxGw BJXlHCCbZ8IsdJSm SFgkC214CLtoSoZ6JFVq qzSdP3IsSSTvsFplPyT9 q2B7Rr4CG3X1DZ07PW71 nQNjy8S1lXL8N5Un SCLrappezmmsiSP5IKDz JOYtmM60Fc4gtKmdQa7j GYAbIJE9AIOdaWAwU5Po yO3mRyXcDJFyCYSl Y5BtbCKsLMvsI768AWrv KyS9HATeqjFiN3CxRCRr xAquYgS7x3J5Dp6MOQl1 UF44JN15aBOqd4W0 hOD1F1PiSVAiollsdmdb dSF9TFKhZSCbiC20Zs0l dFfeLl5qVFMnHZD4VEKv wVErO4QhzD4uBaOq MAQiIFXhM4YafIHvXHhs E376KAsuNaT9GCThzjZv U4RjZKYvdAxbYkS7i6K7 Kl1VQUOuAP49XPY1 dVJ5UW64SS28A7NqWryp dGFibGU+PHRhYmxlIHdp ZHRoPScxMDAlJyBzdHls MU5dLv8cXMArOOJw wBvofPWcMzHfh0dbLTDo MUotGA9dwDlaZ4VefFZ7 IHTat5w3Iy74O47mO5Xw dXA+AYNveUC3rNT6 rS5rSoRqBsK0PTrlY509 IgVphICiSetjt6mtp0vk bIx8DcI2XMYjbdIyiTvm GHZ2r8UgKk87N14x IHdpZHRoPSIxNSUiIHZh hJucag4jzM2uFt7+PGNv yYL6nAW6rH5bSqZfFkL8 FRdeA153KiMvpGJg Xblyr0bsj2wpiLv9YgZg JJVqczMjwUpjFGN2p9Ed Ma53L4HxgYtna1IhMeq5 ay26vSWzg9U2eUD2 X0EwTCRmjqhccNAujQpb LD5fYEAsxsyrUJZfbZ0u PTJtO5w4XhAlTaC8AVko J1YkofI0JPMklFWb PNoiOUH5D37ra2R3WPNl LYSpFEW9oLW7uK5hcUan bjogbGVmdDsgdmVydGlj RZbxQZfiM632YIOx hXwoZRQtvY1iUTAjiYQz aRttTG0kIVCyjidgNySK S2LMJ18CHQJKS7LJMkBo IPmODG94T3XqPzy5 BVKfpVodBP0cuFBeXEca Zc9rmUwrvBzkYE4gWZPv hwcuJNXylT5pOIEqkYGk vNshMF5bKXCcagnb y846ZmEhZFE5XQAzaFQr K4JwmC6jEvYbVGTeUQZs Q8YyqVVuYYzjR756DSad UiS6CLNrekLtU7Xu RHMfrPccKpX2e1J4Ji0w MO9bPb2qHXY1WS09XJ02 oPCcd0Y3gNT1P0OyJELx cnkjududfTA0LFTq QJPbxD08pFCfAFikQq1d y7V5q173LFCjGHFzpN18 Zr0elNqfABPueCZPdV7z kawaa5vnzkdsIfHa KYHmZPv8OPw4CNCkgEef KmPsDCB3NhP6EAI9bEEy bP8mgOstqsvpsN5fHdb+ UJPwDRTalnM1F2Qo Jxy3IJOrfEmbUF0amNTh NYuwJp8rmVbwlYruUD3u WABmfrheGJIomQ9fKVZl pGYomMosOV1jPSIm odnvs917IwWaTEH5WIKt tVLmD3KieX2mNdTxFMVr JDGxB3HgnXVpEInvG331 FWluCkP0ZORujjAo R3FzZANpiAwmEgB8v1Z5 Yl0MVWyLXP56YU63lGPq c1Y5dHR0J2GoIVDiqrwe isemnTF3SMGeXGBp nI93nRUaUMwqIv1eo0U9 g229MFHaVPArwR98Bt9n pPdpFJRifMYKiE0okrrk n8kwivwtCuRfLQSk RQo8YBg3KQHahRgnUhAz GYU8RlL1UXX8hARniN5z aZsitcmptH2yDhd+T1A8 O0BwTpbjuKV+PC90 XNMoUE05dNBdoKFhu7bh iXe5WwXfGSCxBOI4uCzl EEviu1ZcRRTsF94hmAWu v1A6QNHdfUwdgRJr VxAcyUP1sN8bTAbzeptf f5gjpozsGukoz9gwme78 fK72N29zZOaxXIAdMGRc SEPaXUJknUgqxh4g iE5wJo5+KEFjfEW5hXD7 lO9bXaYmWgI5DUxdT361 SsFjiUMwNzxoj7wjl9fl eFl2GfQbVLRjooZh qZwjPAP3p6XrMo44E52e IHdpZHRoPSIyMCUiIHZh sAvhes6zbX5iAs9+PC9j s5hshn11lW35lQX+ KWPtHCY7iEpeZWrwGPFe lF0oHKllHfM5YGVrRlSa uW40dAIpQCqtOr3slYsj uQrlPA6yJMEfssza r702WeGuy0qfQDHtsDJf AWsmVVT8C56cw3U7XIZo GQHfOVX8pTB0zE2dpAsy bjogbGVmdDsgdmVy dSboIRzkIGkmV697MGDt eRhtGnXshXJlY7axdsAU MM2nAdaxgDA+PHRkIHN0 pWglFBbxORAagO5c LGFaK5y3UqYyRnG9YLzq E7VecrQ8DAIhnRDuMRHb rMKQdU9rptxpj2zbardp XlAwUYMwYEb7QCb9 QFTgpYsyYpGySNQ0DxB2 RKH8qMNbzW0ilAyywkvx qC9yTux+RklOOjwvdGQ+ UCCaHXY1pLtiNNwu OBLskB4gFEHtO0z4ZbJc SyJ1OMynO6NlueZ7GXOd bTDpKDIdvEVAhR7docho x5quxejgHpIzSRWs SPq9UTf3PSKjiVgrPzCh QDS1YlF4LVX5cDNxiO8w yDvlulumyL6vLji+TVJO OjwvdGQ+PHRkIHN0 hRykSCnpVMYlqC3uDEDd W0z4FyBzUfO2UVvyM2Cc pgS0PCNdxKPtVYIubLHS yQ4wuzbnz4fhlzli FyDoOHGqFPg6HRx5OSHu nFecKiVwBUS7UsN7FLF0 tQOqoL5enBuhjoprmT0m Oyc+VFF9PZQ6IC89 OX58M2UzCkdeiYMmtNN+ PHRhYmxlIHdpZHRoPScx EYRkDhSjyKygMC7zSf1c ZGVyLWNvbGxhcHNl OiB (more content not included)... [facility] Provider [place] 08-29-2021 Provider Orders [id number] #1.00OTGTIFF [facility] Rad - MRI Reporton Rad - MRI Report [id number] #1.00OTGTIFF [facility] MRA Head w/o Contraston 08-10 MRA Head w/o Contrast MRA HEAD WITHOUT CONTRAST; 08/27/2021 2:19 PM EDT Clinical History:LOSS OF BALANCE Comparison: None available . Sequences: Axially acquired 3-D gradient echo series for the purposes of hmhf-uh-knbrml MRA. From this data set multiple volumetric [...] MD 08/28/21 7:28 am Technologist: JERRI Normal [facility] MRI Brain w/o Contraston MRI Brain [...] Deshpande MD 08/27/21 2:50 pm Technologist: JERRI [facility] MRI Spine Cervical w/o Contr indu [...] Deshpande MD 08/28/21 7:38 am Technologist: JERRI [facility] Physical Therapy Noteon 07-12 Physical Therapy Note [id number] #1.00OTGTIFF [facility] Provider [place] 07-31-2021 Provider Orders [id number] #1.00OTGTIFF [facility] Provider [place] 06-29-2021 Provider Orders [id number] #1.00OTGTIFF [facility] Coding Summaryon 2021 Coding Summary HTMLBase 64 OvtikbwpHBw5pFp+PGhl YWQ+MV2HFXWiK47ptTSl aG9JR3uHAO8FFIREKFLF GL4WQY6rbIX4OCggC6Qz biAv InnoiMBnOB28POl9MNB4 eUtvLFidvR8gqTVuN3i6 IxJoKR85sC95XYrtYBGy SlW7GjJvxkgbbAAm H0ifYgXtmVHeBfu+PHRh YmxlIHdpZHRoPScxMDAl WaYfmQqqRS5aMa2uLJRd LWNvbGxhcHNlOiBj x1erNGToRYncYX3xuQiu K9RylTR6YYNlm9j8Lp31 dHI+OKVaTVT0dElpYZji x304TqEmz0bpALF4 oZDdUOvxNHN5T08dd6M4 GUEcNTNxKHP3dIB9hX1t gTxefeivP8XorJBgNfS1 LLW5xLQxpQ7zaFhj kxpdiT6gUpv+S68WNN5T XAOIRE3ZFld4U3MkCfzq dHI+HD83JKLvTX86eYEu pXKst9vzySq7HgAl LUTyFUF6iHwmIZyas8Sn SAZwX15pmILvy4D7YEWt fJeoaYEoZkQoqCY5eT8h HMbbcltxe7iovwtm Gciep8zklg56vG98M60u GXnwUBIlDJN4RFDnCZRj zOkvgo4kzW3qRy1+IDxj m1ksg0jifBc5YmRc PGDfwrOtoZlfDIL0t7Ae Bz97O6HtpHoov4GiOqc5 pr45yDHph3I2aDN2GFxr ZVWjjH7kIKwvHfM3 CMKfSkEqeU78dPHkLUrg Pc6crKhtuEboKU3zMLKe urdeJRCaoA0iCIYfbJKc fAcaRD0zXMPlqacu f851QrDgDSW3CDZesDNc D3LzuS3tEoQpYYRoCKGh M5LlaNGfRGckS613ILxh UtW3EZIjmeSvK8Yx YCNhqIiaDuM3v4L7Py9I d3TlbtzmBDC3RFyqOSK1 YkE6MzQcZoE5O4OqRag5 KOCfvBobUG0sP8Jj EIOsazyqtwsssIH3NAJf EURzqT88oDAsTIflCq1o q4R9q564ZUGrKNDbgT44 Iu8etVbcYHNxpOMF xK4urvikx5pjatmyOjJy NLPwNIy6WQs3UDBwvUrs AzGhJAK1BfH0INQ5uOXh nU0qcAlnjboktD6n Oyc+Y89mvL0qEFI2NOR4 xoyyYMUweaXbJW42VY34 X9MbXxjyvSUseLF+PGRp esPvrOgxDL6fDoJm s9ewn6RiLQceS5LuGYMi EVypOnt1ULJjTKF9aQV1 uO1iABCwRGzho8Z8sPV6 L6ErkaAsbk8wa1wy MXYlGDacF37ssVMgh2Y9 ATMmpOW1QOZzsMepHsZi oR38Wqn+IPBqzGbys3Qk Iohmr6eso6okzNh7 IjMwJSIgdmFsaWduPSJ0 k6AbAa95R05gVTszGQHv NDTxPFOfIFJdpDewtr4x cX5iRy2+PGNvbCB3 sTL5jQ5bMFEnBbT1AGfs F765LoApxGMdFwrsa7cd c4wtpMv1YrLtSEGwkuVv oEweXFS6c2BuKd06 G85gYRomBPOtDIIkBIOn PJAgkVqixu0sqM1tWs6+ ZX2bu8icje87yW72oAJ+ PEPbIPS8cIwyCXly HHJubA7bCRndKjZ0CAOq JyZxmE78qTBbIJhxBc3x cXsawFhdLN6bKRTzvcuf x994YzQgd6hsRNAj jTGiHKgcPYB2Z74cw7W8 SELwNDOjDQE3zWB6wE1b bGlnbjogbGVmdDsgdmVy wFpcGTkoURldT623 IHRvcDsnPlBhdGllbnQg FpItVDr0D2JiXvn7BHSq eTnhOZ5heDBvDPwaQk9v cCxzvHbgTT7zDWYi czsss671LpZvc0tgBDHc zFQuHVszJLI9L52ii6W0 EELaQOBjITS6lHU4nJ3q bGlnbjogbGVmdDsg soVvsYepLOlwTUzuH337 IHRvcDsnPkJpcnRoIERh cFH2XN00IQ25eNGoh9R0 cRO7D4IdEDUvdufa etgowSJ7RKSxTKZdkY77 Yg3anJjrMy7xLJVyVQY8 RLPyxNZhT0IaeW2gNdZp PHAkKHQsQ1WusLTs LFpeV554AWdrNjL1EKXf npGmX2ShMDWjiVfhIhC6 q4I9Pw8FZ7J2EN15KL65 eWJrr4L3hQR7S2Bg XDYwguggjdthuKL9UCPu YXIqlS63Ld0phOzbSj5v WQKrLML4KUVkqICvJ4Oe qV4vKuKqJFDwWILa P6SobLZeQAvcE290GUiq IeS6HSLrqyBqE7NfHITa aLhpWeL8d1D6Fp0BPJt1 HA46IC43aNQwv9L2 uEU9P0FbBXTnhqoebtnm dLD6CUXyKTOfmO47Nb5p cZbdXv5nPBEnINW8LCHo lNNnS3IojF5hQsKg LSPjYCVqB7LnwDRmYJki P340AMpiTtU3GUCibmEr Z2UhGMQgsKhbSqD3x0W3 Un9RZCWhBI04ITW9 dXN1TV09UV72Q4BpRdoo dGFibGU+PHRhYmxlIHdp ZHRoPScxMDAlJyBzdHls QO8xDe1zHYBfJEKc mFqnyAJiHgDrd5mcLSYt GMmaKU4hvSdfX8VmwMM1 XLAxc7q3Wm07J39rH1Gs dXA+FLDiwWD1pRU3 kL4pPwGzSsV6VBsyA260 HjTwlJTnAjjag9tnj5td dWo9IbS9UXLjwvHtwWrb KYI8k0CiAx82Q45q IHdpZHRoPSIxNSUiIHZh uEgekx1qmE8tOu9+PGNv sDK9zJF6xP1xXlLqUtE3 VNohO062OsYqeHVw Mquoo9kkr0qpqMz9FhRz WBTkalZjnZzyXLZ3o9Ga In06I4AfaBqps9PvUpx9 yz68bABhz0G4kBQ6 I7VjZCPqioheiVFocVyx WP2iZWFobzouTSYtpA4j BDBzF9b4CoQjAcC4IZpq R6NtieE1LLSamIKq KSfkYLN3I49rf4V7KKFt GTDoRDF4oXS5oY1seRsh bjogbGVmdDsgdmVydGlj EKmdMSzgN482MUFt sMhgJMLdpK6fRCRdlYDx gDgfHN9jTDSuztllOiMY U8TUZ53JKRCLJ2LRYnPn MIdIFW85H7GqLjs1 VMMraKnjWR8nkWEfWSrv Ld0riXfdwJvcMN2gIXMx iykkGFSzgJ5oQMFugMOd yCecOQ1xHEGcgfqt q984CqAjWVF2HVKnsFNf C8AbrJ1eHwNjOSBdFXPr U4SlkROrJPlcY848VHov DvQ9EWWykaFhC2In APFkpKifPwV6w5U7Sl2r NI9uUa0mFYX1QS54PZ67 lOPit9N4iPP3A1DmNCYg amegwjgrqUP4XECp CVRmjZ33iCWoFMciAj2r v4J2y387EJTgRMAreM19 Sm1dmVngRHEjmUUXhG8j ojydg0kzltmpWcVe BFBmPJw7HHt8RVStiNit IcVeTBQ0AiM7HDD7rZPe fQ9whJwtsbdjeA4qGqe+ VZDePHFauuZ6B3Yh Ext5IJGukSvtNP4utOWm AZwfZq5hlMyjeWnuKP8x WUKqlcghOXActP3aXIGr xPUvzTteBV7iAQXo ilbrg336SbVlQIM1VXNh rHMnS2LjpY3nOyDpLTGc REZhP3LjiFHtRLitE138 ZAtzJnW2ZWXobdMm O9ZiEHVhlIqdSqX2e8Q2 Db9DPQoJWL38DU23eVKf m1E4oOD8T2JaQLSnuchu nwghxQC1CPKbICVy oT52yNDcAGtaWw8oe0A8 i489SWPsJKQfnI24Zw9s uOzuPZBcmKEImN8holap f5qzngejArDpSCSc FPa9WZx9HCMheHevCpFg QHC7YsT4MQZ5bVMbcM5i aXvrmrvlpI8jFey+T1A8 K4QiTzeplHA+PC90 WBMvJR54mZYnzZIvn5rj nZc5RiNmXFKjXCD7lKdr FLjzb5GgYCBjD94xsRZh e6I5IRYizLxsmSEc PxUkwCH9oG8vKDcfpdkp f9xbffyiZeugo4ziua89 wA74O91hPCduVWQpIUWg OVTaIXGioObghz8z lI2qXm2+HBYqtTC9pDM8 tD7bAkIpTsY6MPisP373 ShYwoQWuUkbax1tzn0kh pUe0EnSwBLNwxvEd eJtbQAL8m1NiHx31I31z IHdpZHRoPSIyMCUiIHZh sVorje5olU5vIt3+PC9j x8ksuf15qN80vNH+ UDGuPYT5sUqeMWopUVTe yA4vQCvbZdH2TFWeFjWl lE22iURiDYzpKn7ehEah uBccOG3qLKJhqfju j680PmBim2wnKLLhkVXu ARxfLNE6A96iz7N8LATj ZUKtLRA5lYE8zH2ycWfd bjogbGVmdDsgdmVy tNksSEqcNSrsW708WPBq rWwiOsIrqJXvP5autyFH BR7zTnseiZV+PHRkIHN0 qFfiDIltAAPzrO6c ENUhE6i2CxAuMjF5LXxv L0IgiwN2YOOotDNlFAFk qZKPlM3pmjrjp9obhbfw GpYtFEKsCXo6LNz1 OHJjgTufPiRcUWC5IbQ6 VRD2oVWqjH5laUlkgebi qB5sTwl+RklOOjwvdGQ+ GBVtXTO5gTluACbd OEQqnH1nRFIkX6h2AkPg ZvM4CNwsB1UiewY1NHRx oXDqXCHxxUUJvS1jzwau x0ytjalnIqHmDOKc YPe0JAb6DLSqpQqmHyMt ZOG5BpI4YAU1aIIpnG2g jBlfgadmvM0jGdy+TVJO OjwvdGQ+PHRkIHN0 oAyzBByvTKKkgT1tROZb S9f8RtDcGiV9DQkfZ3Za zgX7TCLonGQsHRBdgAFS hZ2okwqiv1dbbbuk NyUkLUXxYGe7LGf6HIWv vLwlQxQmDFC7WtT5GOI7 fFCauC5zbGjieokwmJ9j Oyc+XIZ4ZRG8SU03 KF51L9WcAgvwrIOiiXX+ PHRhYmxlIHdpZHRoPScx GHPiQwXbnFqsHH6bLy9j ZGVyLWNvbGxhcHNl OiB (more content not included)... Normal [facility] Provider Orderson 06-25-2021 Provider Orders [id number] #[id number] Normal [facility] .Auto Diff 106-22-2021 Auto [place] % 10 % Normal 11-21 [facility] Comment on above: Performed By: #### 1 [id number], [id number], [id number] ####[facility] (DEFAULT)[address] [place] [address] 26148 Baso Abs# 0.2 x10 Normal 0.0-0.2 [facility] Comment on above: Performed By: #### 1 [id number], [id number], [id number] ####[facility] (DEFAULT)[address] [place] [address] 81522 Basophils/100 WBC (Bld) 1.9 % Normal 0.2-2.0 [facility] Comment on above: Performed By: #### 1 [id number], [id number], [id number] ####[facility] (DEFAULT)[address] [place] [address] 03979 Eos Abs# 0.4 x10 Normal 0.0-0.4 [facility] Comment on above: Performed By: #### 1 [id number], [id number], [id number] ####[facility] (DEFAULT)[address] [place] [address] 54544 Eosinophils/100 WBC (Bld) 4.7 % High 0.9-4.0 [facility] Comment on above: Performed By: #### 1 [id number], [id number], [id number] ####[facility] (DEFAULT)[address] [place] [address] 91613 Lymph Abs# 2.9 x10 Normal 1.3-2.9 [facility] Comment on above: Performed By: #### 1 [id number], [id number], [id number] ####[facility] (DEFAULT)[address] [place] [address] Lymphocytes/100 WBC (Bld) 33 % Normal 14-48 [facility] Comment on above: Performed By: #### 1 [id number], [id number], [id number] ####[facility] (DEFAULT)[address] [place] [address] [place] Abs# 0.9 x10 High 0.0-0.8 [facility] Comment on above: Performed By: #### 1 [id number], [id number], [id number] ####[facility] (DEFAULT)[address] [place] [address] Neut Abs# 4.6 x10 Normal 1.5-9.2 [facility] Comment on above: Performed By: #### 1 [id number], [id number], [id number] ####[facility] (DEFAULT)[address] [place] [address] Neutrophils/100 WBC (Bld) 50 % Normal 44-88 [facility] Comment on above: Performed By: #### 1 [id number], [id number], [id number] ####[facility] (DEFAULT)[address] [place] [address] CBC w/ Auto Diffon Erythrocyte distribution width (RBC) [Ratio] 13.2 % Normal 11.5-15.0 [facility] Comment on above: Performed By: #### 1 [id number], [id number], [id number] ####[facility] (DEFAULT)[address] [place] [address] Hematocrit (Bld) [Volume fraction] 45.3 % Normal 34.8-51.9 [facility] Comment on above: Performed By: #### 1 [id number], [id number], [id number] ####[facility] (DEFAULT)[address] [place] [address] Hemoglobin (Bld) [Mass/Vol] 14.9 g/dL Normal 11.8-17.7 [facility] Comment on above: Performed By: #### 1 [id number], [id number], [id number] ####[facility] (DEFAULT)[address] [place] [address] Instr WBC 9.0 x10 Invalid Interpretation Code [facility] Comment on above: Performed By: #### 1 [id number], [id number], [id number] ####[facility] (DEFAULT)[address] [place] [address] Man Diff? Auto Normal [facility] Comment on above: Performed By: #### 1 [id number], [id number], [id number] ####[facility] (DEFAULT)[address] [place] [address] MCH (RBC) [Entitic mass] 31 pg Normal 24-34 [facility] Comment on above: Performed By: #### 1 [id number], [id number], [id number] ####[facility] (DEFAULT)[address] [place] [address] MCHC (RBC) [Mass/Vol] 33 g/dL Normal 26-37 [facility] Comment on above: Performed By: #### 1 [id number], [id number], [id number] ####[facility] (DEFAULT)[address] [place] [address] MCV (RBC) [Entitic vol] 95 fL Normal 81-100 [facility] Comment on above: Performed By: #### 1 [id number], [id number], [id number] ####[facility] (DEFAULT)[address] [place] [address] Platelet 295 x10 Normal 138-427 [facility] Comment on above: Performed By: #### 1 [id number], [id number], [id number] ####[facility] (DEFAULT)[address] [place] [address] Platelet mean volume (Bld) [Entitic vol] 9.1 fL Normal 6.3-10.2 [facility] Comment on above: Performed By: #### 1 [id number], [id number], [id number] ####[facility] (DEFAULT)[address] [place] [address] RBC 4.78 x10 Normal 3.70-5.30 [facility] Comment on above: Performed By: #### 1 [id number], [id number], [id number] ####[facility] (DEFAULT)[address] [place] [address] WBC 9.0 x10 Normal 3.5-10.5 [facility] Comment on above: Performed By: #### 1 [id number], [id number], [id number] ####[facility] (DEFAULT)[address] [place] [address] 40726 TSH w/ Reflex to FT4on 06-22 TSH Qn 2.41 m[IU]/L Normal 0.45-5.33 [facility] Comment on above: Result Comment: Gene ral Population (males and non- females, aged 21-88) 0.45 - 5.33 Females, 1st Trimester 0.05 - 3.70 Females, 2nd Trimester 0.31 - 4.35 Females, 3rd Trimester 0.41 - 5.18 Performed By: #### 1 [id number], [id number], [id number] ####[facility] (DEFAULT)[address] [place] [address] [id number] US Carotid Duplex Bilateralo n 06-22-2021 US Carotid Duplex Bilateral DUPLEX ULTRASOUND EXAMINATION OF THE CAROTID ARTERIES. COMPARISON: None. HISTORY / INDICATIONS: Evaluate for carotid stenosis TECHNIQUE: Bilateral common carotid arteries, extracranial internal and external carotid arteries are evaluated with hogan-scale imaging, color Doppler, and spectral analysis according to a standard protocol. ICA-CCA ratios are calculated with sales representative rural power peak-systolic velocities and recorded. Vertebral arteries are [...] Jules Tilley 06/22/21 2:18 pm Technologist: DIANE [facility] XR Chest 2 Viewson XR Chest [...] MD 06/22/21 3:55 pm Technologist: SE KATHY [facility] Coding Summaryon 05-23-2021 Coding Summary HTMLBase 64 UdwjcemhFGx4aXw+PGhl YWQ+QR0OUYZtU40olPYy iX5QR4qYQV0AFVUXWLTV AB7FBI7aeOD3ZTyyB3Cr biAv KviejFUdQM88CZw1OAV7 wAnpTKhozX9mhXNnO0a2 LhWfIZ57aZ00YIehGBKu PqN1KbKgrwtrdHCa H4qvIlKdoCWgMlz+PHRh YmxlIHdpZHRoPScxMDAl VaMdfZpqXK5jLq5jMAFd LWNvbGxhcHNlOiBj a8poROWjAZbjIE4gnJit L8VtjJD9ISHrs6r1Rv22 dHI+IPDqFZP2iRvhZBqn t902SjKjt2ztHLL0 jPWjCXlwYOM2A23uy9K9 XHLaYIQzUYJ7rHT5oW9z rTovuiseU6BycJPuVaT5 HYF5oIYqhM0dkZwu fiyjqN6xGue+L63TRN0X MFZYMN3JErw3R5TuFxbn dHI+IE33YZLzOJ85zXMr vMJge9nvjPe8DlXp LOYjUCO7cImtACwmb9Fy THOvJ30krTPsb1B2AAAj sXntaSCsYuAtoWA2xP6o TFwxhoxvo9setjhq Mcwsa9beal00rK61X59u IKrxRXYbLAY0JYXcZRXb uLsdqe4rrO9hTo0+IDxj v6uru3mekGu5PyCv QQQraaHirMudAPE6f8Ry Pf74X5EavAefr1XxCpr2 zu58qFBhk4V9dAP6OGkp DEFdaT8cFVxmEaM7 JNKuDsIgtG00kZScKTes Py6ysGzygNtgTV4aYIOh diulSAJtsL5tGUHsjYWc tTyyTJ1qLQKrlrvp d042LsClXEX3XBFicCKj R1TifU1bYdDeOEMrJDVr C8KbdOApZSniW865LByf FkC1TZWxizWwN7Xq UUWlkCmeJwQ7s6T5Ph0C q7SukfyoVJL7FCqyYIA9 DeO4GxMhGhF8S6JmPrr7 HIIwpOjjSM6rA1It RKDgmhltqwrmiRU5QJBm FCYoxD82rFMfMTvzEc5i w6A1w012ZWLtBMIvnW77 Fh3kxQzsVWDxoFXT fF3bckktr9wcdhhaZxXd RLIoZWf2KIk1GOXxeMlf FpSgQPI4VhW6AQT9vTLe gZ2itGgzcvlwmA0s Oyc+W38auA4oKRS0UQV2 gbvpGMWwfbTxDY40RV23 J6ZzPxnjiAVkbRZ+PGRp dkJxkYyjSL9iLnSj y7xuz3AcMFjjT9EyATDq LRqfSya2BECxZLR4xMC3 eQ4pCTEcCIwrx1T8yZX9 A4CyooJduu5ik3nv OTGyOThhK76fhNSoz2K2 BTTuaRS9IWEewIaxTlDg dA26Vts+OFZqeHvkt0Ma Xufwu2kyu5injYa3 IjMwJSIgdmFsaWduPSJ0 l5CrDr46M27zAKfkMVAh HBEcOIRjWCArgJequy5a mQ4bNb7+PGNvbCB3 gXP4bO2jYHVuBdC3HLui K152NyHicZRhZedel9qc j6zuxAw6LjJnBUTpyyJi oVdnSEF3r3HeTb12 B27dVYvsYSQoVOHbAFBu WFOheMrptw4vjL3nYa0+ QE1mh6svpd87aW40aOA+ TPPlXED0eTkjJNrp MKLpqI1vUEcaNxZ8VGCh UzXyjJ76jDPgJStiVr5z uOtfkReoKD6qQMNnnwut o974FeAfo8mhIMAx qVEaWFqeJLX5W94ab6L0 DAFxZUVbYQA5tNR8vN5k bGlnbjogbGVmdDsgdmVy iUfcOIypKTidW504 IHRvcDsnPlBhdGllbnQg EfUbOMk8O6IqRys9YHJh rTfcNY8hlQVsOWpxCs4u fNyojDrcVU8wJPFj ggehu365AnPza0tnPJLk oHPcPKziUNO5J59qs6N9 GRIvFESzJUI1oID7mH4n bGlnbjogbGVmdDsg piLrgKheUDdxYHslX677 IHRvcDsnPkJpcnRoIERh dCS9CI25QR15sQYpz6L2 jTA7U6VvWDQmtvxa kqbqcIF9XILkSSWvnI31 Fz4xtIstFr1nDHUdDRT5 TNRfsDSzS2EevE3uIbNx PNYuCAYnZ0TzbRUy TYzdW208PVswVgQ1QLPn pnMnD6WkJCChhWzdXdX3 d6O7Nj1VE4I4SZ96SR18 bWHrm7F6vIK4M6Ua SGTtpoaxryaotBI6DUQq EZHeaH78Vy1kuPkqYi9r NJJfOIQ9EBTevKPbW2Fw yZ0vKoJcPVScDBVy S7IznYMbUEpkJ428IOpn DxN3ZGKfelFtA4JjVMGf jVjyUmS3g9B7Hr2SZJd0 PE98VX79bSAtk2A8 rGH9I6GbHYApualhtgwo dJA8YODhUVNfwW38Bk5b gIxtJl1wYNTyPLD3UNEo sLUlN5NwwD3sCvAl KSCtMCJjI1MydSBuZKqp Z008GWvcCjB6GGKbbvRi B1CbQJOiiTpdAyV4p1W9 Ww0OOXXfUG68TLK8 fWZ1FR07HY25C6LaFvxk dGFibGU+PHRhYmxlIHdp ZHRoPScxMDAlJyBzdHls DR5sGu9aXCEjYIWn eKtbjYVlMfSvu9nmQQDu GZrzWT0igGfbG9JmaBH3 IMMuf3w0Ni75V04sJ8Ac dXA+QFOguRL6rWZ1 wF8iJyInFbK4HOkhM125 DlStpUJsNowgd0pwx5so xKq4WpV4ZOOwjcJhnYrd WAZ3e9KpRb76Z10v IHdpZHRoPSIxNSUiIHZh uPsryt5zrB5oOl0+PGNv aYA1cDN3nP2lSlYnQyT7 IWfeT096XwGlzUKr Afrvp5avh8xpjEv2DjNn FDAywnQhfEikLAQ2g9Ki Br40I8VxrYqka7BhTkc0 nw07gINyj0Z5fWZ9 W3ZhOCVjniqkbNFdoQgi RL2rOEUfcxygHRUegZ1q SUJtX9s7BsUsRxD7LOat I3OawhU7CPMvoSUs YNxaWHS2V60zk6A5HITo XGPpFTP4mRO2aC9hiXdz bjogbGVmdDsgdmVydGlj XKmrUZraA829NJUs kSamEXTnnO5dWLDmhCMx xIdpHZ4xBSPoiujuHnWK F0CQG24XOUPCB7ONEpRu IRnXCT68P1NzZuk4 VTZucDhhKS3kjDLrCYuf Bz7qfJjqhJnjVS2dFQSx wvzoMEEoqC6sUBIyaBTr uYeoRN1tCQCnwnyk s865VlUbDFM6KEPxeLXt B5AmlM9fBvRxZPBuURMp Z0YfcNCvTUdpD611JLta JaX9CTRjjtNvH7Rm NRVzxAdgJzV4u3R8Fo5j TP7iVg2fCTH9EC75TX27 mWNpj6K0kVF0U3AnWGHg nzttrjylzBR1FUQi WNUvzX99nHXhEVsgEc9d e8L6l254RAVyMJPicN27 Oc9xlNbqLKWblWJHhD5z xzygx1swtodtLaJh UVIxPNg8TQh8LXMqgFrc PtMxNRM7QlM2MDU8aZLl qR7lnBactyxksK2dVzq+ XHZsWRBdjfJ0V9Qp Fbe2YNUalFhhJW9yqRJg WVmqId3tqEkmdHpySV8k ONFerwdjPCSroL0zWWGe xKZueAtlKS8aNMSi nlraf506HxMaUBN3PGYa bAVaG6FywZ9cUjGoMPLf PRZmM1VigROoTPxaX862 JPvdAeX6JNHactQt Q9VkTBIgiMxmOuP1q4A8 Lk3YDCvKRX63LL36oIZu x2F5aZK4L8WwMWRdjbnu ftsthAZ0TFHyJROf jC66xMWsHUjpRa7vc3F2 a208IVQyPLInnH48Wn8p xQzjCFHqpAJPzZ6qddwr y3usyeajJsIkBJBw SVb5MXo9FANkhQqtKtYp NPB1RdZ8KGX7pBZvbN2d vAnoosoqrQ3wTex+UmVj jXRqgR5uDK45bVAz rPrvkjU8D3GyOnppbYR+ EP12VOQqXA95hVJynUHq z0lssKx7YiTfOCQjDTT8 qZbxUZflm4VpIBPa W78lvPXgg4T8JNYwyJsw fOEdUmWeoOG2mV2yRPdx mjiug7dtcjosBhcvf6uf lu73mL69T72bTPli ZHRoPSIzMCUiIHZhbGln cv1zkF8bZz9+PGNvbCB3 zKE5gZ6fSgKrLoE1WVgt P621ByBiqLVaChxu k7hvj2yntCn9IsScSHSx izLzmLteYOH5n9WhIe16 U05yOSjzZGPpNGFiEWOu REWjvBbedn1giH6h Ii8+XZ2oj8usiu63aR90 dHI+ZMFbNUB2xEdlVYey DLKnmC7kMTdcByU5BNAx FhImuT30yFBlTUyy Wl1kdYjdyIudDT6tHPDj nxuvb212UzNhy9pwKSMi aPEoZLecVTA8Q23ov1K7 WBNjRGYtCXH9fGJ6 vL4gaMxemaorgZXozKtd qlYwvAtzIFshBQvsI007 MZRvnUlyEqWimEIdC4pd uvMFSX7uLbaivYX+ TKYjZIM3wSbeMQpaBDTa nX2qGQSjD5m2FeBkDzF8 NTipF1LqbiU6TMGglLRy XLYkhGBGhN8uzkyq h0eqxaprJtBmVAPeNBl8 DWn8EQRadZcxRtEsERV1 KvK1LFB6sLRjtU4apKjw dtwwkQ6fMqz+RklO OjwvdGQ+ZALzLSS0tFat QWreQBAmtC5iPRTxV6s2 EeSxAfK5UGrlK5CkluL8 IGJvbGQgMTBwdCBU xP0bqloaw8chavigNkQn WTMzDEl4GSl4AKZcxInt YiIpPDQ0YrO5IYM9iFTf cX0tuKnuelxseJ0o Oyc+TVJOOjwvdGQ+PHRk TMB1iCnrJVniPOQcsP6z VDBnN7g9JnQnKhP7QFru A6IcpbD6SYNdcKQy KOSxgVTLgB0awnyos0jg tsauQxGkJROmOQo6JFi1 LPRqcPqyGnKhBRI6AuC5 JAL4eOCcoC0eeBrd scwisL6uJfv+ZRG6FDE4 PT55IW67F5EvOfyyxPXf bGU+PHRhYmxlIHdpZHRo PScxMDAlJyBzdHls ZT0 (more content not included)... [facility] Provider Orderson 05-17-2021 Provider Orders [id number] #1.00OTGTIFF [facility] Coding Summaryon 04-27-2021 Coding Summary HTMLBase 64 ImkxmutfUHm0zRh+PGhl YWQ+MB0LPDRoQ40cePBp fA9HW0tMXV7GXLBIYNJZ NH0QAX7npXO2QPnhI3Em biAv XqsiqSNaBG62ZNp1FNR8 vSrdWPwtrJ3uvPBwB5e0 XsGzZO53qP55HDupVYKd JnB3MrZdzdtejQQb H4kzPnQmcGCdSlp+PHRh YmxlIHdpZHRoPScxMDAl ZoSevKbhCS4dWt3wKNNr LWNvbGxhcHNlOiBj k8lmFHGrIOmbOE2qeNix L4SkbDS3MHItr2w3Ri99 dHI+VLMnSXJ2hFryBLug d033EcSkg6lqNKS2 yHFtBOvdBFC1Y74bc8L5 TFDwHRFtJNQ8aSD7lY2p jFwlnlsoB3SakATzNuL9 AIE9nSTqiH7drLwq fguhxT1rWzk+D02VVI8F HJFXKS0HDrg3K3DsVfxt dHI+QE25FNEtOX82cPYc vIIwb2yeeAm9MkUp NIXnOYW2hWezEAqnt1Dz PFDlY96zhSCjc3E4UPBs rFkzmQOeVcSgoUI3oG8v DYjukvoym1xrafxw Hsnep1qzfl23yI36U10k BEelADCiLQF8THQkFQVa gLgbky0hpC0vKf2+IDxj e2gmy9fjgWf3ShXl QAZsnoAdjZpnQSR4t2Sx Af30R5VmpJcbp9LoNfv5 dv90vHLsr5H3gRD4ZYzz HHUjsI1gGHcuLgW1 QRCqNzNquL62aTXpJWab Sn1jlBmnsCuyYL7fBHMu idjwTCUbcL4iNHMxiZTs dPsgXF3cSCUgsvip p037LjMzSKB9SGAflGWv P9ZngU1eScFzUCEjJJJa B6HdhBLuKIefC248HQca UeD9PBApimHaL8Tu IADmaJkeLxX5j4A8Mq9N t1EmntcbBFX9PAtcMGY0 XqW7JoUxCrH0X1KcSxt1 IBNymUzbIB9mL0Gx RUMtabupafdfdBN8VTWp GWDmlV75fSWwZRlkDa0j t1H5p118QKItAQXlrE38 Jo1zxMhuPJFweQHJ jD3tzcbte8phkplxCcEq IGWlLNb6TTp9RZWoiKon KeLzDPW4HbS0BBD7bXUc rR8upFbgujyrzQ2y Oyc+Y72rnH3iQMM6FAR8 ppojXQQkabZaKO27FS01 N5FdTpnoxVBymST+PGRp jzVoyLpwPQ6oNoXn o0fgz5GgNOshH5LpLJLe LAixJax2VGHqOIL6lYI1 eX4pHOSfZLnui8E9yZD3 X2HwsdJppq3ot3ch RHHlQCvcA18cwOThz9E7 LFOeuTM7UQOjpUpiXeMy mN25Vxu+YXDroRbkg7Ab Cfrsz1xuc1zusCn3 IjMwJSIgdmFsaWduPSJ0 k0NiJc38F90oFErfXRYg RLEfXLQaIRDwzVmjft4e zZ8sOn3+PGNvbCB3 oHD9yR7qUQTdZfI1XJfo S880UhRhmOUxNwdap5xh s0qmeNg8CuEuLEVqvvOp dPdaNAK7n3NrDj99 V27vLZbsZHKbXDVzNVPb KILvtMxmne3dhM8mZv5+ OI3ho7zhuo05tZ30eCU+ GZVaOAF1pJrxKAoo QNNtqF9bOQxlBkI9WNNx HrOaxE35rXXtSTalAq7l bPyleOkuOI0gPDIunfrb m258WrGqr6zmRSXd nGCoWVbkZEQ8F42zl7C9 NZClEMQsZLL3jTL8zM8l bGlnbjogbGVmdDsgdmVy hKnyRBcyQMvnM267 IHRvcDsnPlBhdGllbnQg FjBoYQj2E3WkHma5UKYk vEjaNN6dxMIqGGacRt2z nQcdbAwaDF5hDPUg umomg687CaSwy7wgVVRy oYFgPFdxVJX2O99xr0Q4 UOIbWJDvLWK7jQT4oF9p bGlnbjogbGVmdDsg epXqxKrhSOugIDcgO732 IHRvcDsnPkJpcnRoIERh wTS8RN39JY00yZNsy8W0 uML4U4LfRCQdiqyj qddaiRY6YKTlVOQjnW66 Qf1zyJykEo2pXLUbUWM5 HFVdaVLzX0EsfS9lJpXl GUWjLJIhA1UitSCx ZEupZ794RQlcVeN6PVRb rdShY1PhOOQstWeeWzR0 f6A7Wp1PD5U6UK26YU95 qCJca4E3kCI9L7Ui YQSxnndzktrcpIQ5QOHq VPMwbM67Mi3axBhdBq8i PNIwEAD2GUZmfBDeE0Cb nW4jDeIoIFQpBKEi J8GrxBMfVNbmJ970TLcx TwB4HZVexgNyX6FzYBMn aWuzXjC0y6K1Ct5VWEm9 SG40WX59tMIvh8H2 qQU7G5GgFEQdpowcoply hZC3BRZlHVUxsS19Ab1e hSgoTx9rMYJgZYP2URAf fLBzN7ArdA5qJcGm FZMrBNPqC6TluAPuJNlv Y792KPhkTzN3CZNcmuLi I9ZmHKMvhPukBeL1s1O9 Nm2ANHPxDT81MKF0 nGA8TI01WS92Y3XaDjbp dGFibGU+PHRhYmxlIHdp ZHRoPScxMDAlJyBzdHls CX3tPb5pZENqTIAy aMytpTDjVgNxy0mmSIAl PPkfML2nsTpcC0MinRX9 IIPpb7y4Xg55R34xD6Nj dXA+SWScfXF0fLD8 yA0mOyPqUuB7CFgiN623 HlEuiVQkIizog5qjt1sb iUo3KqK9ALMkcvBouPkf EDM3b7JfRv81L73r IHdpZHRoPSIxNSUiIHZh rZdnwb2huP7sQq0+PGNv gJM6xWE1bJ8fGgYhWgV7 IPmeA977BnHrgBPx Kfzca3xna6eapWp7GsJy RCTbgeCcbOztDWQ4v6Od In09T1QwvRjsx2IhMsw0 ln32tNNld4K0gTG2 A2VgNDGgdksrsSRcjLpv IB6nQEQsultqYKAxkL0j LNHmA5l4RbYgQjL6XLzs V4ScmaU8FXBwtXLk XHigXCL7H33ka1U8TJCx NWXtNKG1wRQ7qN5jpGtu bjogbGVmdDsgdmVydGlj RKugYYizU860FXQu sYdbPNFgzV3cZTVfdEPj oIhvRL5kLOXwjrdxOvJN P7OJY54MUSMBQ6ERZnVt HKpHDR60D4PeCta5 VEZfcYxeLN8xwAFsJFnx Wa3igDzkmVivQE2fCVNh mavtPLInpR2xVRTlgLAp mRytON1wODHbyqas d807XzQoIKP1ULTgcODz P2DveL9tRuHpXTBwAGMu V0JreKClETcjQ807QWtz OyC9VKPxjeFqI8Sh YQDegIkoAgN1o6R9Xd5b MS5eZl0vTQR1QN69RE49 dWVrm4O2fXD4M6DhDZMh yqyjlxvyzZV5YJKh KWFytO22iNZkIAobQa0m i7B0t047XNQtVXZhcA94 Pm5dgKfqBOUdeXNQwW7y dnmbx4edbsepLkTn MKYbNPj6DHs9IDViwIqa OfRaBDI3UkK1TGO8mMMa iU9yhTqfybhrjJ7aDuu+ FKYvFXZpkpS7E9Na Yxv8JZBppYppGN4qwQQm WDesIn1owLinwUnuMZ1c OLFdsgkcTJErqQ5qFYTs gJRqwBfyKQ8dBRWm fcien524HzDmMYM9KHKs rYWjK2StbW9sBjQrAXYn CRJmC3QuzHYuFIwsS057 TPmdGgY8OEEacyMj H8FmQZTcrFgqHeD5k7C6 Ul4QBApTRV42UQ01yVXz m1O1fCA9V4ZxVZQjtaer qjbwxHC7DTOpVOZb yN81kNLmWFwzFj6kq9S8 h008FSBoTEHgbR28Qq4y jEqnAHEglWKMdF0phvwp w7hycuybBbPcVDWu SMp3FTe1FJDzyMovAmUc DPJ8XqY5WQR2mLVhxE2r eLekqxclcF9eRsq+T1A8 S8EuJmheaSB+PC90 NMBjLC47aONmwMEib8py aAt8MqFoQQBzNBO5gFsx QNjwb8CmJSCbH66jyJDo f6K3YYKjtTckpWQg XdQgoTH8qF9wERhtvdod m6neewntBiojn3wypo21 jE28B49sFFqbXSSlVHEb TVJcEJFqkHlzok5n vO6wUi0+WAGdaXY7eTN7 fN8vGcJgGiA4YTwsG174 AwDxlTQlUzyrn2rfm0gf mCk9VlBkRSWutkQz pJjwNIQ1g8WoPn35A95t IHdpZHRoPSIyMCUiIHZh lCtkba6lzB2pFt4+PC9j w9xvwj40wD92uDH+ TFTxESQ9uVldHDioCMXn wX4mQPcsEsV4TFCkIcPy nS72aWSrKKgzYd9zdFdr hAciED1hSNJzynbc p067VzLdd8tgLRRtzBHk YFtuBIS1T20jm7Y1IDSs HZSiQQL8nWP1bB9vyIlr bjogbGVmdDsgdmVy zZvzGBdpKWkoF622IKWt pZfdNwVzzBEqP4cygiEJ FI0hNxlhdVK+PHRkIHN0 wDerIYkjFNAcdL6l GIUqL9t2NiAkFoN9MJsb B4TvmsQ4BCXmaKLxPLTq oBRIuQ4ngzsgm5abcisv UmSqKAJiCRo6QGf8 VZKomSsuHaTrIDC0MqS1 ASV8oZDffS4jjLzqxybb cK8aWmm+RklOOjwvdGQ+ JPTbJVK1jAmpORlw ERLztQ2oIHNcW6c7EhHc RfE9ZBhpP5MduyA0TTHv kDNpFEOvlJZYzY9ldegs z8yutdmvOxTuGQLw XCz7XCe7LGLacGweEaZh WTF4LwC4RJT2pRMstL3f oYgvlsqavB2qZxr+TVJO OjwvdGQ+PHRkIHN0 iBirMImpPWCedR8fJNIx G0i7DpOpUiR8QNctY2Qn jkN1PVYpjCDfLZUjuQCN vT9grxgwy0iuhjxg WmDtTDXqPVa2OUp4VPQm pGloCfLhIMU1SeF3MWB6 rNUuzE7ebJlbhgbkrC9j Oyc+LCS6XFI3FC38 YW22A0UjLbcutORloFC+ PHRhYmxlIHdpZHRoPScx YPHaNbPomOubZS6pLz2n ZGVyLWNvbGxhcHNl OiB (more content not included)... [facility] Coding Summaryon 04-06-2021 Coding Summary HTMLBase 64 IyqsddnwTEi7pMp+PGhl YWQ+JW5ARLGlW47wgUBn mX8XG2zJZN7JSIHPCIAT EY2BYZ6dbBY6KPqeF2Gh biAv ApzndIJaCS06LXe6WQS0 tPpfMYfojO8kaWRtN4m8 MjOyQD43rA32WUdsMKJr HsV6EjVhhmgxcYCk E8kvDaUbuJXbPnm+PHRh YmxlIHdpZHRoPScxMDAl VrCisWjzLY4dKf4iERMx LWNvbGxhcHNlOiBj m9ryMDMhTQuuWA6ypVkn B7WsjWH6LWVgn6s9Vb42 dHI+LTVxRPN1pAriDIjj r486FeDpa8ftNQZ8 tCDwEHjrXER9K39vr0V9 MJLkWAUjWZU4nTV8rI9h mZxtsanwC3DpeIWbWuM4 FCQ4sIIvyM4bbMwp wpzptT5zEwc+H50SPF2Y IBWZHH1WLkl2W3IwOgjo dHI+GR67ZGGkQQ94cUKp wAVrd8nljIv7SnWd MWOgSLC2gKuhCNvzv8Qj KZJjV97lcHSyf8Y2HXWp yIfkxXAoIsAttUN9kF1a ZCmcsgxye0smwres Czvje5tzuz15gS70N46s GFrlTEHcOCH2ZYEdZLDb pWjuzx4osZ5dNd6+IDxj q5xng3jkcXq2WuGu ZLLfaoHumIatGXK0d5Ed Ma18F1XheBujt6RbWus0 fw33sCZzd5O0oSA2POan GDBdxQ3qKFqlMtM2 HMQoZzDacV04aOGyMCwr Sp0xmNynnAioXT3eUZJo gqzdMYXhxB9xZBCtpBAg xCumPS6xYASfhxnr o860JvDrPQX8GYNezSGb N5KzbC6mBnNvPZJeXCRj M5ReuMWxHUkuM210DRdn DiT0AQQdwvEnL4Ks PFMjoFsaMdX8d4Y9Hg4J t3RotvnsHKR2YQsnOLH1 QvK0SgTwLnM4H7ApSjj0 PSBczPwmTA1yL3Cm LCEzltqnfluozIL3BYDx GPGnmV82nVDtKTcqMa0s k5U9w515KADdZEEyyT24 Zs7hiBmuXGKxnNLJ rC9vbgzeb5rbkobhRdWp KDYbOXh0YZw3KVEogEgu YwZvJKW3RzO5BVH9mGCv yQ9fbFbswlemoN0b Oyc+E94cnS2oRPV7QBG3 wlduAAAzgkFgNC11OI19 U6IzJnbwvNLzhAJ+PGRp haClnLceLX2vTeAj j7kyu9RrHRhnW1YwKYJj XRznGij9YVVgVUU8jZX4 xM6aHAHgBMjex3K6gZU7 V6SibcNepg1ub9kx PSTlAHwkH28ieEYbx9O1 UFVoqHK6LDQabIrcIgBx rL38Ngx+GYOurAurk3Dc Wjmax9tsp7lgdNc5 IjMwJSIgdmFsaWduPSJ0 i7YiTx04P86cGFujTVCb PJMuHMYrNHQinPjlcv4v vE0qGf2+PGNvbCB3 fDP1hA1cVCWzAmY9TQct D072FfMixKSvMlohu2uz g5qjdWk7UaBdXIQtzmEf rRjwLOG9w1DfEx90 E59hXBsmAUTiABAhYSTv PBWfdTtpok8fdA8cXi8+ QY9az8iydw08xJ23bHB+ FKPqZNY5jBynWYcc NIKzdY1pWEzbWlD0YUZn PwEzjO92iNUoYBloTi9j zNefnAqeRS5bAODtczmu x268JeYfw9ycTLNe dHPhKPtnEFV1J41pp3X7 NAClYWJhCLK2eNA2nE1p bGlnbjogbGVmdDsgdmVy bTttINviQIstM724 IHRvcDsnPlBhdGllbnQg SlGnLHu2Z3PeWyy5DAZf qQlnBM2boMMnHYgvXh1y pTktvMzkZV9yLGJk xebfl329EpQyn3swRRNz oALyBChjJFQ3G15ps8V1 OGWrKZBiMUW9yTL5xF3h bGlnbjogbGVmdDsg giXujAnwQBwsKZkyA134 IHRvcDsnPkJpcnRoIERh qPR0TP19IW12fZJwl3N1 cDQ2A0MaQZGpnrxk jxgdsQQ7AHDcWLLfsN77 Vx4ipJamNx4cZMOeXBL6 JYLugGKmH2WtaI9fVsWk OMSkWWDgW3NrxMQq PJdqX041PModIiE7EIVn tlZpY2BvBBWszVpeKvA0 q2G2Hd8UD1U2XD36UJ20 oRMxu7H1uJN6X5Gu CFMgrmfmnhpdzHG1GJJp XVVazF35Ij3wsDpyLt8l MCTfSGZ0MCYoeOMiN2Bm yH2pGaGfOJLuUBOo I3OdyFNlOHlwQ788UBlu XcY4GFLubeNtZ6CaKPNd lPbjQzR6h8Z9Jm9QPRo3 XY16LQ69gHHbk0C5 yAY8V4FjBEOeoggyhqjh eIP4TCJkZNRuaC82Pz5f mWxsRs7dXUFoHJQ2TFAe cOHpL7ZozU9lQgOy ZRLtTFWcO3IktNDaYLzc O648OSbjKcT3YGEwkfWn C3InKDTbjAndMyP0g8M1 Ko3GFOUmPV76FIZ0 nFZ0MZ00KP13N1UbNjvg dGFibGU+PHRhYmxlIHdp ZHRoPScxMDAlJyBzdHls ZY8kZc1mRTCgWNGf zJfqeGUxEmTag0wzEECh EHmqJO9ihDnyN3DlpOL8 LLKjd0h8Xl04Q51rL3Vr dXA+FOJrtUC5yJF5 cS9wFpHrTyC5DPeuR090 QzLfaMUuChnpz2lyr7kq gGd0UrS2DAPgtbYmlRkt TLM6s3IpJd43K18v IHdpZHRoPSIxNSUiIHZh eHczpb2emX8bDw3+PGNv sQR2gEM8pJ5mBvKgKxO8 SKypR087AySiaBPw Osodm8vks3vliBr5LgXs XOAymoOkmHjdZZJ1t9Li Qy31R0CvfBjmz4IhWmk8 id49vJYwi9E2oNH5 Y6NpPGKxzcszsGHagItm YW1bRNIuhpkyCIHafP3c EPUlJ8w5MaChQyB4XNao S4HpcwT2JBMigHCf ZDmxCRE2Z09lz8F7DYQm BQQeWWW1sFC5wB6fkHzq bjogbGVmdDsgdmVydGlj SWmpQOesT673GOBu xHnfJCGzoR0vEMMqbYOr jKfmJN9fEOIpmpowDeSS N2NHF28TKTCOO7ROYdGo LWdVFB07L5HrMzj6 SLUniQovIH5ggYEkVZgr Ep1fmXrhgJkoBJ1yRSPm rvckOACtzS4bAOMqoKQa uGsdND2jOCLfftbf e548AjLfHNT3VMXzfTNb A7OjsI2rEeVhGTAzAMDu M1PoaUZuZYmjC151DAqv OoS5UTLbvyVwM3Wt SIWngExpFyW1u9W9Bc6e II5vGb6hIDI1ZD68GN50 mXRdq2P8eQN6T8PqVKFh qxymncivzLN4VHSo ONLzsW71vGOuHGtcFu9j a4R4h211SNJcCMIlgA12 Xh2ztBcsYNDxgDQJsL9w koyit1fprvrjFcNw HXUjHTt6TEi3WYCqdHsq YcKzLLL6BiB6XJU4aZGp bL6ghFxrsnownX5lWxd+ WMJzZKBzbfM3M4Ln Ssv7RVLsoSuvVD5urVXy KAeyBr4wpCacpQysEE7o TLChjzjzDJRluO1sFPPy mYXlfJvqXR4gIDWe cvudo200QiStDOZ3GFIz yGZgL1HixH2eVyOvSSVy FZOkM2PgqWDpGTpbZ102 SRpeGvC0NNTuveUp J1BaSENpmRohKdU7f2C6 Gf2GDJvHWU48WE20gXYy a6P4cFU1C2GlAVArmfdk ewcrmWI6AULxBYYq kH65yLSrRGyzLf3ff8Q5 k015FAImVCIblH62Pb0b gCkxXYSowGBWjB9lffdx q8mctnbxAuWgWKZw KSw7SVt8MWSefAyeXfQy SBI7JyZ6FBI9mNOxhY2w qYdahkfgaV7dUoc+RW1l mirooxD8CQ76OK05 J9SjOouziXPgoRC+PHRh YmxlIHdpZHRoPScxMDAl DkEdfXldAU2uWx3tLHQe LWNvbGxhcHNlOiBj z1wjZEWjDLlnHJ7urOge Z0TbfJQ4VOUsc5m0Qn11 F39sW0UzhLI+PGNvbCB3 wCF0kY2kRmQzHkR5 LSyqM626YrFxzTJeRpja f1apl3gfeXi3HuBsOFUg lsHvdNhjGJX1e0GhNl57 A22xVDeeBCPwSMAr LPQpPLUrxFsxdo5daL8q Ii8+KQUxsTY4tAB8pS7t AhXjUrE5ECpoP623FzRr nJTjOvsxX83oE2Cp dXA+NOAjVgl0EGPibApp FZ5iaFWkFMwfUe4lLHL7 BqGzEwMmDPfgG1CnZFCw pkhfvzguhRV9FMUj NGStmO92Wh2ziBxyAj7i QLNjWNZ4KIXuzMBmN8Gz iS9gGtLdNVTrBDVvV7Np qHDmZBuuZ251VNmw JuF0WLKpclTnQ8IjZDPp dZzpZgN7r1J2Ng5BnFae lEFfQN6xCoDmMFs8M0Im Fxq9JWBmtBxhCC0k lJGgNErqNs1skCgldPmn VR3dKMKrpjmnm346YgZa a1ykNUOupDEyRNzkITL9 N32ik8H5LHQhQXYg JHI8aIQ4tD2wmPsbzznz bGVmdDsgdmVydGljYWwt RSexH427GZQdtQraOpIV Kpq5C7CtMct9ISVk wCkzAX3azKMdJXcrKa8y yBnnoDanGZ6lVWCcahku u419RnJen4unGLAofISx BIjsVTD6C74rz8D1 BWZmVVRvUYH9eFJ2mG1c bGlnbjogbGVmdDsgdmVy tDheXJzwMWfzQ157QAYu nZwhBq9ZYyk8M7Ip Inu1WLUmlNjcEI3ymIOj LUyfPv4yoAwkaOrxQN9y ZUWvkacfw302DvYug6ul IDEwcHQgVGltZXM7 D21us9M2RUTlSXKlDGL9 sPZ3fY3vsTgmksqlqOIc dDsgdmVydGljYWwtYWxp N640SRQuqHchYwYt eWVyOjwvdGQ+TW37pr62 P5NeEeozHfg6JLBeBOJ6 uJL9qK2iTZPhFOgfi7I7 mDR6Z4VqtsQbzk5o b2x (more content not included)... [facility] Coding Summary HTMLBase 64 TwstuvhvENf8rBr+PGhl YWQ+ON8PZKUaW23rxXZq wN0RE5yQGV3EQRZFIFVV HE4ADC5kpGL6MYehF7Pq biAv GcobjQEdDU05TFm7MGN3 rBobZFqadW0guYPxD6t1 QtVaZR26aL23WKjmAHNc RoD2MtIcoinouNOj U8naPgIvxAIuLjm+PHRh YmxlIHdpZHRoPScxMDAl JfBxaAugJE6iIc4cULFo LWNvbGxhcHNlOiBj o9qcZOJjVGjsSB3zqTlu E5EyhZH1YEZnp7b6Vx44 dHI+KFPdPYH7dPncJCyf k743AtHhr9cgWZD8 gYIqGXdtGBS5M25zx6R1 ZBWmVKQnHCH5hEH0uJ9r jLsgkiixG7DkhHQsVrA0 ALA1eFAtiD2esIns mecfjO4qXgd+A11ZQU9U RQURNE7OIvl7L8ZgNnmh dHI+AL29HZEdOE36wOUm wLGgd6lsdFt5EmCi OIJuSDF6kPdcCVhin2Fx HKLdP33xwHPho8H1RXTr gSlhuEOnXqIugXU9qW7k PHrxhzgbv5pygcbt Lwfob3qfyc34lP72C99z RUblBSBoTII7UNJxQPDo nEqwmi6rpM7dOh3+IDxj o1bfi6izpCo7VtJg YWEpvrKfjEygHTL1e6Oq Kc44X7McgGkfh9CuCql4 dn07iQBcg9L0eGC5UHtp OLAyjB7tAVjmScW8 PBEaEcJcpI95wLRdNSxw Ln1rfDcoyHuhZK0uTUGw vdszJTAogA2rYNUubVHj hQffQP4cLSBfocuo p879EfUgNZQ8BDKtqXQu O4PevP3rSyIaMGAjWSXt Q3NoxWEaCUnqG579CTuo NgS8FOLhqaNrW3Bz XKMdeQmqQoL6u5N2Dq4T b1BulahvTWU9OXhuYWD0 ZjB4UqRvLtO4K5NdFer4 OTWkvQqqQZ6aB3Xw KPQlflchwzsycCU9ZZDe BAHkkV20bIGtBXjqHt7f e4Y9h160MIEfPBUdsD94 Zx1szRdiTRJjqTNN oQ8prmqih6ggrjuqCpIn TXJmQRq9OKp6HXZmhQcu AsOuALT0NkN6IJW6dJCi pX6qcXniznfptG9c Oyc+E13rsQ7gPJM5XYW3 vxcuCNEmmjKfML88SN94 J3MgYuuynSEyyKO+PGRp vkEozPpuET3nJpRb j4onn5CkMMjoY8QhQFRb NUriAau7LMVfNPO4iIG5 pJ2kTDAeFNbet4L5kFH9 E4HskqUehh3yi8bp EPNpZThsA40pdFMcg3D6 UUWdaHD3JMVidUswHzSh wT62Zug+HOIspGpph3Ur Wolxl4iqw0mfqGp3 IjMwJSIgdmFsaWduPSJ0 g9PoCr30Y95uYCdkATKq IIUlJEOlFHMojBufvs2r cU4sHq5+PGNvbCB3 bZI9mD4nPYPtDhY5LEjp N723MzTnjPIyFekof2aw y0cueCi8VjAsJBXilmAj jDdoUTR0n4UvYz24 E84yBRmvPOVwNCZjBUBj QPHkfCxxym1ocU9bWz4+ OW6nn1uird18yC34rCN+ GODeSOF1vAwqGQhg JZVvpQ8sCLmgVaI2WAYu HrRbqU84kSDiTBerKk3r xKvrdDcwKZ1iWFMfpgog s983OiOog1kjFBAx uFMoWGchKMW8E03pw9R3 MRJmPYCiEGC0uQA6lU4u bGlnbjogbGVmdDsgdmVy jLydOKwhQXqeF436 IHRvcDsnPlBhdGllbnQg LnGjUFm7P8UvDfi8ZSXo dBdeSP5chAAsCQwsCj2j zQdolXbyZS0pTNUp dwwun504RrRmu5eeXTCi tRZlAYqpEWU4N33ic8Y6 IPOgWTCiBEI6wGQ5iO8x bGlnbjogbGVmdDsg reLslOvjIRflRZcyY977 IHRvcDsnPkJpcnRoIERh nKL0QY79XH06tKCkn6S4 mTH2D7UfPRNtkttq nsxcoWT2IORbCEIlmW20 Am4hqXpiBa2cBQJxKVI3 NYQyaVLaG0OvlN8pJxAk HDSjQMYoP0LyzEEj WMyeG197VLbjIyN3QQWo cjOuZ0DrFBDlwZucLpI8 g6V3Eu0UH3Z2CC61MJ26 yONzn6W8mYT7M1Sr FFLuaqidiftwkXH2UJAw UHQknY14Sg3doYeaNc0m LGOePVE8SSDqqSTlV6Zy xQ5sWqYcXTCcQVMy H8VwkEXcVKzxR254VVun MsI4SZTsogHsM6VrYQCn bLkxWiY3u1P6Fr6DYLt8 MI84EX73vFJag2P6 qIU0W8WxTXHmnhzexcuh cUB3ORPtYLYntO60Bp5n oNxrGi4dPLGrGPD1UOCq jOThK0LafB4xViIp GBCnOQKrL7EmnSZdQSsy L553IQeyIyY5LGKaezEf I1RfLYYcuBlaQgL8f9C8 Ey4EGVFsSQ94UQR5 lHH5WU09LO62S8IhDliy dGFibGU+PHRhYmxlIHdp ZHRoPScxMDAlJyBzdHls QF0tNq6pBYViAKWp oLfphPPnAzCjy0bpHGIx YDjiVT1wqNisF0ZdcRU9 XBNlt8l5Iu10T55lS5Fx dXA+GAHrvAF7yXV9 iT1nAeHeOpR2JTtcF919 EgVreUBaXzmnl9sfw0rs uTz3FmV6WKYjlwKclOoo IAP0u1JtZc28F83i IHdpZHRoPSIxNSUiIHZh fCmqqp2fmY5dQa8+PGNv mNQ7pIR5rY4vVvPqIsD2 UMypB276CkYvtQBz Rsujx2alj9mmoPz1UhIq APDjafVrkEzdSFD7f3Rv Tu80Z6VwcYgbh0WgLic9 oe53lHOjl8D5eDT1 I0EjJIGzdnvyuPXgmJnl TQ8zVTYwwpvuXQQoxK7f YGXfW2n8VuRnSxN7DDxs E9BdmuT2XFEjxKGj NMdrHIO2T88fv3T7UWVl OZQuOYR3vVD8zY1zlDxh bjogbGVmdDsgdmVydGlj AQldSLyqP880VIDi hWqaJADwgT1iCBRcnOPa jKinNA8oVHGgjnknYtSH N5VHI79BEOZGB7IDMwBv ZWvOYR39B2UkEsp5 KOInkTrvIG1lxPKlRBut Mw9dqRjrmLffIA4hWOQm szivMSQeyF9jFBQpwNDj sAziNP4gYLMtzkqf j349IvRnKIU0YLAqqLMv N6HpxK7wIxFcJZZcSAHp S2MeqGYtTPfaM138BPki KdJ0SYFiteNaC2So LCWtjJqsWxI3o4U4Ys9m ZD9eBq0gVOO1PN99GQ95 jWZkm8V3sYF0Q5KmDVMw bororraigFT0KWXv VXNymP25tCGkEWwsGy4i u0D3m859UEHeICUjiT02 Ww8akXvtZEVhjYQKuW3v kptdq6vfatrnYjIs YWEnIPb6XBg0AFKviQft HaNcHNZ1WcC5EVL2uCNg jT7nnRubiyssgB9tEhk+ FOIfGKLhzaM1A3Od Ing3IPVrtNcaXZ9imRCe VXonGy5lnSiadFxkIW5m TASwbyaeKPLvfM1mOGHq qVYvmBbgSK1uYNQl glbav750IcAwJGW6IBWv yQLeO1EndV4aZoCkEBUz CYXfO4IlpCMgSRiyU312 IQnaIrM4QEUbqqIm H1IwIHTenZfcYnF2z5A5 Oe3ADZwCDS65BH89dRPp l0O7aJB5C2XrZOAspnag utnntKH6MSMaYBDw zH83xGGhLTxxEp9xi3C4 h359BNPtQIQltS94Vk2f xBymHSVvvNIOrL5twofk t3bgxjtdUkRePNEl SBb1QWm6WRAkoWjcKrFd QVL4NbN1HOE9jGXaeI0c kXiaxtuohS2wPez+RW1l sgnvmoN7IG36GX70 C0RdBhnqtTEmmPG+PHRh YmxlIHdpZHRoPScxMDAl ScHhiIcvXX6jFx0gHGPg LWNvbGxhcHNlOiBj g5pbJWFbRBclGA7icXzn H7MemZQ6CMZhm5y2Ks79 P46yW2AgnPR+PGNvbCB3 bYP0fW4xIwLoPkT4 XLjiL951UwGkdIMxUsyg y4vvd6fkwEy7MeXoYZPo gfQjvKndFUR7c1WcBr20 E85bALrbTRYpMSNq QBZlCIWprDvuyl8olC3o Ii8+RSOadMS9pSQ1oQ9y FgYfGxM5HKnqN224EqRi mBXaOwttZ65oA0Xo dXA+SNLmQnz0TJKlnAbi YU6pyISpPWknQy7yBIB3 TzJqTvXyMQfnA6ZuMGYr hudbdquagTO4QVOf XQIcoB66Tl4bbKctSq0f CAMvANR8QRZtwEAcM6Kq oW1jKpNxNJFtUQKfC1Md lUFpGMbhY062UHdh UpS9LRXjsbLeI4YiQHHo nNzfIpV6l9G0Je0WdYof nNQlHS5iJuPgQFs8E0Qu Qgd8OBZcwGdgNH2d kCTeYKxvKf6ilRitvCni TD4qEGRrawtld507ElJu v7yvBZGkxXZaMRfpGMA0 B57pu2R3PRLsGMYx SJP5rXA5tO9isXfgcdft bGVmdDsgdmVydGljYWwt SHrbA724GNZoaVrxUqHY Mfn4O8HvDnq8TTDg zJkcBP7dbYGcMOhbGv8o aQdkqIlyHN6eTCJgeqzv u439HhVva2dmMZVjsHHf YLdxZIO2U26gl0M3 UNVuVZIuGNM1nLT4pY8y bGlnbjogbGVmdDsgdmVy qDklMTwaLCrnJ584TRAk iDdbLj1VFmd9G0Tz Qle5NOXsqPkgGZ0kpLRr VTqfVh5mdGvhyFyxZV9q TVUpcrhid618YiCnm4mh IDEwcHQgVGltZXM7 R85gh9O6RTYoXZJcGTT4 bRM9qL3koNmlmngnmOIj dDsgdmVydGljYWwtYWxp Z680VECreZfwJcXm eWVyOjwvdGQ+MQ29vc05 R1JmTdctDal5UZGsZAI0 nTC5iP0nJDDdNRghd2G8 lHZ7G1PfsiDfln1l b2x (more content not included)... Normal [facility] ED Clinical Summaryon 2020 ED Clinical Summary [facility] - Emergency Department [address] [place] [address] [id number] ED Clinical Summary PERSON INFORMATION Name: ROSA EASTMAN Age: 55 Years Sex: MALE : 1965 MRN: Acct#: Visit Reason: Hand pain-swelling; RIGHT WRIST PAIN Arrival: 04/01/2021 19:05:43 Discharge: 04/01/2021 19:35:00 LOS: 000 00:30 Check In: 04/01/2021 19:05:43 Checkout:04/01/2021 19:35:00 Address: [address] [address] PCP: Provider, None PROVIDER INFORMATION Provider Role [...] Follow-Up: With: Address: When: Andrew Mckenzie DO [address] [place] [address] [phone] Within 3 to 5 days DIAGNOSIS: 1:Sprain of right wrist Patient Understands: Yes - Patient/family/careg iver verbalizes understanding of instructions given Comment: Normal [facility] ED Patient Summaryon 021 ED Patient Summary [facility] - Emergency Department [address] [place] [address] [id number] PATIENT DISCHARGE INSTRUCTIONS Patient Information Name: ROSA EASTMAN Age: 55 Years Date of : 1965 Reason For Visit: Hand pain-swelling; RIGHT WRIST PAIN Arrival Time: 04/01/2021 19:05:43 Primary Care Physician: Provider, None Attending Physician: Medhat Hernandez MD Comment: Visit Diagnosis: Diagnoses This Visit Hand pain-swelling ([id number]) Sprain of right wrist (S63.501A) Prescription Information: If you have been given a prescription for narcotics, seek immediate medical attention if you have any difficulty breathing or any sudden status changes such as confusion and sleepiness. If you or anyone you know is experiencing suicidal thoughts, mental health, alcohol and/or drug addiction problems; contact the [facility] 02/06 Crisis Hotline -Text 4HVGI qn [phone]. If you received any narcotics, sedation, or [...] documents With: Address: When: Magaly Andrew Grande DO [address] [place] [id number] Within 3 to 5 days Medication Information: The exam and treatment you received today in the [facility] Emergency Department were for an urgent problem and are not intended as complete care. It is important for you to follow up with a doctor, nurse practitioner, or physician?s clinical assistant professor for ongoing care. If your symptoms become [...] so we can reach you if necessary. [facility] Emergency Department has provided you with a complete list of medications post discharge. Please inform your logging crew supervisor/provider of your visit and for further instruction on these medications. Any specific questions regarding your chronic medications and dosages should be discussed with your primary care physician(s) and/or pharmacist. Medications to Continue That Have Not Changed Other Medications acetaminophen-hydroc odone (hydrocodone-acetami nophen 5 mg-325 mg ([place] 5)) 1 tab(s) Oral Every 6 hours [...] With poor (more content not included)... Normal [facility] Vital Signs Date Time Vital Sign Value Performing Clinician Facility 02-20-2023 14:00-0400 Body height 172.72 cm Josué Evangelista Other [facility] Other 02-20-2023 14:00-0400 Body mass index (BMI) [Ratio] 32.08 kg/m2 Josué Evangelista Other [facility] Other 02-20-2023 14:00-0400 Body weight 95.71 kg Josué Evangelista Other [facility] Other 02-20-2023 14:00-0400 Diastolic blood pressure 80 mm[Hg] Josué César Other [facility] Other 02-20-2023 14:00-0400 Systolic blood pressure 130 mm[Hg] Josué Evangelista Other [facility] Other 01-22-2023 09:40-0400 Diastolic blood pressure 84 mm[Hg] DO Britt Rumschlag Work Phone: [facility] 01-22-2023 09:40-0400 Heart rate 70 /min DO Britt Rumschlag Work Phone: [facility] 01-22-2023 09:40-0400 Respiratory rate 16 /min DO Britt Rumschlag Work Phone: [facility] 01-22-2023 09:40-0400 SaO2% (BldA) [Mass fraction] 96 % DO Britt Rumschlag Work Phone: [facility] 01-22-2023 09:40-0400 Systolic blood pressure 136 mm[Hg] DO Britt Rumschlag Work Phone: [facility] 01-22-2023 08:47-0400 Body temperature 98 [degF] DO Britt Rumschlag Work Phone: [facility] 01-22-2023 08:12-0400 Inhaled oxygen flow rate 10 L/min DO Britt Rumschlag Work Phone: [facility] 01-22-2023 07:35-0400 Body height 172.72 cm DO Britt Rumschlag Work Phone: [facility] 01-22-2023 07:35-0400 Body mass index (BMI) [Ratio] 32.4 kg/m2 DO Britt Rumschlag Work Phone: [facility] 01-22-2023 07:35-0400 Body weight 96.8 kg DO Britt Rumschlag Work Phone: [facility] 03-13-2022 11:45-0400 Body height 172.72 cm Harvey Holt Other [facility] Other 03-13-2022 11:45-0400 Body mass index (BMI) [Ratio] 32.23 kg/m2 Harvey Holt Other [facility] Other 03-13-2022 11:45-0400 Body weight 96.16 kg Harvey Holt Other [facility] Other 01-14-2022 14:30-0500 Body height 172.72 cm Harvey Holt Other [facility] Other 01-14-2022 14:30-0500 Body mass index (BMI) [Ratio] 32.23 kg/m2 Harvey Salcidocamilo Other [facility] Other 01-14-2022 14:30-0500 Body weight 96.16 kg Harvey Salcidocamilo Other [facility] Other 09-19-2021 11:00-0500 Body height 172.72 cm Harvey Salicdocamilo Other [facility] Other 09-19-2021 11:00-0500 Body mass index (BMI) [Ratio] 32.23 kg/m2 Harvey Elscamilo Other [facility] Other 09-19-2021 11:00-0500 Body weight 96.16 kg Harvey Salcidocamilo Other [facility] Other 09-19-2021 11:00-0500 Diastolic blood pressure 87 mm[Hg] Harvey Yanet Other [facility] Other 09-19-2021 11:00-0500 Systolic blood pressure 130 mm[Hg] Harvey Holt Other [facility] Other Encounters Encounter Date Encounter Type Care Provider Facility Start: 04-22-2024 End: 04-22-2024 ambulatory GÓMEZ SIDHU Not Available Start: 04-19-2024 End: 04-19-2024 ambulatory Richard Lezama MD Facility: [facility] Start: 03-15-2024 End: 03-15-2024 ambulatory Richard Lezama MD Facility:[facility] Start: 02-09-2024 End: 02-09-2024 ambulatory Richard Lezama MD Facility:[facility] Start: 01-12-2024 End: 01-12-2024 ambulatory Richard Lezama MD Facility:[facility] Start: 12-22-2023 End: 12-22-2023 ambulatory Richard Lezama MD Facility:[facility] Start: 12-08-2023 End: 12-08-2023 ambulatory Richard Lezama MD Facility:[facility] Start: 10-15-2023 End: 10-15-2023 ambulatory CANDIS N DEXTER [facility] Start: 10-14-2023 End: 10-15-2023 ambulatory BRITT RUMSCHLAG [facility] Start: 03-04-2023 End: 03-05-[address] DOCTOR GARCIA Facility: Start: 02-28-2023 End: 02-28-2023 ambulatory Josué Evangelista Other [facility] Other Start: 02-28-2023 Telephone encounter Josué Evangelista [facility] Start: 02-20-2023 End: 02-20-2023 ambulatory Josué Evangelista Other [facility] Other Start: 02-20-2023 Postop follow up vis it related to original px Josué Evangelista [facility] Start: 01-22-2023 End: 01-22-2023 Admission to same day surgery center DO Britt Rumschlag Work Phone: [facility] [address] [place] Start: 01-22-2023 End: 01-22-2023 ambulatory Josué Adelaida Evangelista Facility:[facility] Start: 01-22-2023 End: 01-22-2023 ambulatory DO Britt Rumschlag Work Phone: [facility] Work Phone: Start: 01-13-2023 End: 01-13-2023 ambulatory Josué Evangelista Facility:[facility] Start: 01-13-2023 End: 01-13-2023 ambulatory DO Britt Rumschlag Work Phone: [facility] Work Phone: Start: 01-13-2023 End: 01-13-2023 Patient encounter procedure DO Britt Rumschlag Work Phone: [facility] Work Phone: Start: 12-06-2022 End: 12-06-2022 ambulatory Josué Evangelista Facility:[facility] Start: 12-06-2022 End: 12-06-2022 Patient encounter procedure DO Britt Rumschlag Work Phone: [facility] [address] [place] Work Phone: Start: 08-10-2022 End: 08-10-2022 ambulatory [facility] Facility: Start: 07-08-2022 End: 07-08-2022 ambulatory Gómez Sidhu Facility:[facility] Start: 07-08-2022 End: 07-08-2022 Patient encounter procedure [facility] [address] Start: 06-21-2022 End: 06-21-2022 ambulatory Gómez Sidhu Facility:[facility] Start: 06-21-2022 End: 06-21-2022 Patient encounter procedure [facility] [address] [place] Start: 03-13-2022 End: 03-13-2022 ambulatory Harvey Holt Other [facility] Other Start: 03-13-2022 Office outpatient visit 15 minutes Harvey Holt [facility] Start: 01-14-2022 End: 01-14-2022 ambulatory Harvey Holt Other [facility] [employer] Other Start: 01-14-2022 Office outpatient visit 15 minutes Harvey Holt [facility] Start: 10-16-2021 Admission to [facility] Harvey Holt [facility] Start: 10-16-2021 End: 10-16-2021 ambulatory Harvey Holt Other [facility] [employer] Other Start: 09-19-2021 End: 09-19-2021 ambulatory Harvey Holt Other [facility] [employer] Other Start: 09-19-2021 Office outpatient ne w 45 minutes Harvey Elscamilo [facility] Neuro[facility] Procedures Date Procedure Procedure Detail Performing Clinician Start: 01-22-2023 Decompression of uln ar nerve DO Britt Rumschlag Work Phone: Start: 12-06-2022 X-ray of cervical spine DO Britt WizIQschlag Work Phone: Start: 07-08-2022 MRI of head Plan of Treatment Date Care Activity Detail Author Start: 01-22-2023 End: 01-22-2023 [facility] Start: 07-08-2022 MRI of head MR head/brain wo con [facility] Start: 07-08-2022 End: 07-08-2022 Patient encounter procedure Departed Clinical [facility] [address] Patient referral [facility] Work Phone: Immunizations Immunization Date Immunization Notes Care Provider Augustus villanueva 03-07-2021 COVID-19 mRNA, Comir philip (Pfizer) [facility] 02-14-2021 COVID-19 mRNA, Comir philip (Pfizer) [facility] Payers Date Payer Category Payer Unknown 2022 Medicaid [id number] 2022 Self-pay [id number] 1965 Unknown [id number] .16.84 0.1.673990.3.579.2.593 1965 Unknown [id number] .[id number] 0.1.601903.3.579.2.593 1965 Unknown [id number] 2.16.8 40.1.459733.3.579.2.173 1965 Unknown [id number] 2.16.8 40.1.694376.3.579.2.173 1965 Unknown [id number] 2.16.8 40.1.868244.3.579.2.173 1965 Unknown [id number] 2.16.84 0.1.572563.3.579.2.1259 1965 Unknown [id number] 2.16. 840.1.976219.3.579.2.196 1965 Unknown [id number] 2.16. 840.1.443129.3.579.2.196 1965 Unknown [id number] 2.16. 840.1.652797.3.579.2.196 1965 Unknown [id number] 2.16. 840.1.070147.3.579.2.196 1965 Unknown [id number] 2.16. 840.1.361785.3.579.2.196 1965 Unknown [id number] 2.16. 840.1.608598.3.579.2.196 1959 Unknown [id number] 2.1 6.840.1.544112.19 Unknown [id number] 2.1 6.840.1.549589.19 Unknown [id number] 2.16.8 40.1.440124.3.579.2.531 Unknown [id number] 2.16.8 40.1.528150.3.579.2.531 Unknown [id number] 2.16.8 40.1.011680.3.579.2.531 Unknown [id number] 2.16.8 40.1.554499.3.579.2.531 Unknown [id number] 2.16.8 40.1.408846.3.579.2.531 Social History Date Type Detail Facility Sex Assigned At [facility] Other Start: 10-16-2021 End: 01-22-2023 Tobacco smoking status NHIS Smoker (finding) [facility] Start: 1965 Sex Assigned At Male F [facility] Medical Equipment Procedure Code Equipment Code Equipment Origin al Text Equipment Identifier Dates BONE 7MM DUO FORTITUDE SERIES FDA Start: 10-16-2021 Spinal fixation plate, non-bioabsorbable ()[id number] FDA Start: 10-16-2021 Bone-screw inter nal spinal fixation system, non-sterile ()[id number] FDA Start: 10-16-2021 Bone-screw inter nal spinal fixation system, non-sterile ()[id number] FDA Start: 10-16-2021 BONE 7MM DUO FORTITUDE [...] 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 I will see him on an as-needed basis I think he has had a good outcome overall. [facility] Other 05-04-2022 Evaluation note* Encounter Date Diagnosis [...] Cervical spondylosis with myelopathy (ICD-10 - M47.12) [facility] Other 03-29-2022 NoteEducation Materials Neurology Paresthesia Paresthesia [...] or sweet foods. General instructions ? Take raqi-ihl-vuvqyca and prescription medicines only as told by [...] provider. Document Revised: 11/22/2019 Document Reviewed: 11/05/2018 [employer] Patient Education ? 2020 [employer] Orthopedics Cubital Tunnel Syndrome Cubital tunnel syndrome [...] ? Playing contact sports, (more content not included)...[facility] 01-14-2022 Evaluation note* Encounter Date Diagnosis [...] will see him on an as-needed basis. [facility] Other 11-10-2021 Evaluation note* Encounter Date Diagnosis [...] They understand and would like to proceed [facility] Other 09-27-2021 Note [id number]05-23-2021 NoteEducation Materials Orthopedics Wrist Sprain, Adult [...] health care provider. General instructions ? Take mjgo-iih-zdjcgrh and prescription medicines only as told by [...] provider. Document Revised: 10/09/2018 Document Reviewed: 05/15/2017 [employer] Patient Education ? 2019 [employer] Wrist and Forearm Exercises Ask your health care provider which exercises are safe for you. Do exercises exactly as told by your health care provider and adjust them as directed. It is normal to feel mild stretching, pulling, tightness, or discomfort as you do these exercises. Stop right away if you feel sudden pain or your (more content not included)...[facility] noteNo InformationNortBarnes[facility] Other evaluation noteNo assessment information available [facility] Work Phone: History general Narrative - Reported* Type Description Date Surgical History (R) carpal tunnel release Surgical History (R) Ulnar nerve release Surgical History tonsillectomy Hospitalization History See Above [facility] Other Hospital Discharge instructions Additional Instructions Use [...] Any unusual redness or drainage [facility] Work Phone: Summary Purpose Family [...] 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) Referral Organization [facility] urosurgery Referring Provider First Name Harvey Referring Provider Last Name Yanet Referring Provider Specialty Neurosurger y Referred Organization [facility] Referred Provider EnmanuelJonn Referred Address [address] [place], [place],[address] Referred Provider Specialty Neurology Referral Priority Routine [...] section and content) DATE CREATED AUTHOR 02/16/2022 [facility] DATE CREATED AUTHOR AUTHOR'S ORGANIZ ATION 01/23/2023 [facility] DATE CREATED AUTHOR AUTHOR'S ORGANIZ ATION 03/08/2023 [facility] DATE CREATED AUTHOR AUTHOR'S ORGANIZ ATION 10/18/2023 [facility] DATE CREATED AUTHOR AUTHOR'S ORGANIZ ATION 04/23/2024 [facility] EPIC DATE CREATED AUTHOR AUTHOR'S ORGANIZ ATION 05/02/2024 [facility] REASON FOR VISIT (unrecogniz ed section and content) Referred Dr. Mckenzie Cerv ical Discacdf C3-43 months po ACDFEMG RESULTSright ulnar nerve release4 wk po/ Right ulnar nerve/ [id number] Care Teams (unrecognized sec tion and content) Team Status: Inactive Member Role Status Dates Gómez Alexander PA-C Attending Provider Active Britt Goodman DO Primary Care Provider Active Team Status: Inactive Member Role Status Dates NON STAFF Primary Care Provider Active Gómez Alexander PA-C Attending Provider Active Team Status: Active Member Role Status Dates Britt Goodman DO Primary Care Provider Active Team Status: Inactive Member Role Status Dates Britt Goodman DO Primary Care Provider Active Josué Evangelista [...] BE BASED ON THE PRIMARY CLINICAL RECORDS. L-[facility]. provides no warranty or guarantee of the accuracy or completeness of information in this document.
--- NOTE | 2024-06-28 15:30 | P.CN_ITS ---
Consult Note: HPI Data of Consult Patient: known to practice within the last 3 years Consult date: 06/28/24 Requesting Physician: Richard Lezama MD Primary Care Provider: Britt Goodman Consult Narrative Reason for consult: right low back and leg pain Narrative: 59yom who presents for assessment. notes worsening pain in low back, right buttock, right leg. imaging consistent with stenosis at multiple levels of lumbar spine, including l4-5, l5-s1. previously underwent lumbar epidural steroid injection, patient reports >50% relief for >3 months. states radiating pain is similar to pain he felt prior to then. has continued in a series of provider directed home exercises >6 weeks, without lasting benefit. continues using flexeril, gabapentin. denies adverse med side effects. cc:: CC: Richard Lezama MD Review of Systems ROS Status of ROS 10 or more systems reviewed and unremark able except as noted in history and below [facility] Medical History (Updated 05/20/24 @ 11:19 by Wilma Bhardwaj NP) Glaucoma ?H40.9 - Unspecified glaucoma (ICD-10) Obesity ?E66.9 - Obesity, unspecified (ICD-10) Smoker ?F17.200 - Nicotine dependence, unspecified, uncomplicated (ICD-10) Low back pain ?M54.50 - Low back pain, unspecified (ICD-10) Neck pain ?M54.2 - Cervicalgia (ICD-10) Osteoarthritis ?M19.90 - Unspecified osteoarthritis, unspecified site (ICD-10) Bipolar depression ?F31.9 - Bipolar disorder, unspecified (ICD-10) Carpal tunnel syndrome ?G56.00 - Carpal tunnel syndrome, unspecified upper limb (ICD-10) Chronic GERD ?K21.9 - Gastro-esophageal reflux disease without esophagitis (ICD-10) Acid reflux ?K21.9 - Gastro-esophageal reflux disease without esophagitis (ICD-10) Sleep apnea ?G47.30 - Sleep apnea, unspecified (ICD-10) High cholesterol ?E78.00 - Pure hypercholesterolemia, unspecified (ICD-10) Surgical History H/O neck surgery ?Z98.890 - Other specified postprocedural states (ICD-10) H/O elbow surgery ?Z98.890 - Other specified postprocedural states (ICD-10) H/O carpal tunnel repair ?Z98.890 - Other specified postprocedural states (ICD-10) Hx of tonsillectomy ?Z90.89 - Acquired absence of other organs (ICD-10) H/O eye surgery ?Z98.890 - Other specified postprocedural states (ICD-10) Meds Home Medications and Allergies Home Medications ?Medication ?Instructions ?Recorded ?Confirmed ?Type epinephrine 0.3 mg/0.3 mL 0.3 mg IM DAILY PRN anaphylaxis 08/30/23 04/19/24 History injection, auto-injector latanoprost 0.005 % eye drops 1 drp ophthalmic (eye) .QHS 08/30/23 04/19/24 History omeprazole 40 mg capsule,delayed 40 mg PO QAM 08/30/23 04/19/24 History release rosuvastatin 5 mg tablet 5 mg PO DAILY 08/30/23 04/19/24 History cyclobenzaprine 5 mg tablet 5 mg PO DAILY 12/08/23 04/19/24 History gabapentin 100 mg capsule 100 mg PO DAILY 12/08/23 04/19/24 History famotidine 20 mg tablet mg 04/19/24 History Allergies Allergy/AdvReac Type Severity Reaction Status Date / Time bee venom protein (honey bee) Allergy Severe Verified 04/19/24 09:17 Penicillins Allergy Severe Verified 04/19/24 09:17 Exam Narrative Exam Narrative: Psych-alert and oriented x 3. Attentive and appropriate, constitutionally normal, displays normal mood and affect per situation. There are no obvious deficits in memory, reasoning, or intellect.? Skin-no obvious rashes, bruising, erythema noted to the patient's area of pain.? Extremities- extremities are warm with minimal edema and palpable pulses. Lumbar-tenderness to palpation noted in the lumbar spine and paraspinal musculature. Pain is not elicited with flexion, extension, and lateral rotation of the lumbar spine. Range of motion is not diminished with these motions. Facet loading maneuvers are negative.? Strength-noted to be unremarkable with the exception of decreased strength rated at 4 out of 5 in right quadriceps femoris, anterior tibialis. Sensory-no notable sensory deficits in the bilateral lower extremities to touch or pinprick in all dermatomal distributions with the exception to decreased sensation to the right L4, 5 dermatomal distribution Coordination remains intact.? Gait remains non-antalgic. Assessment and Plan Assessment and Plan (1) Lumbar stenosis with neurogenic claudication: (2) Sacroiliitis: Plan 59yom who presents for assessment. failed conservative measures, as noted. imaging reviewed, as noted. given symptoms and imaging, coupled with previous relief, prudent to attempt right l4-5, l5-s1 tfesi under fluoroscopic guidance. he may even benefit from right sij injection. he is in agreement. meds reviewed, no changes. follow up after procedure.
== END 2024-06-28 14:37 | disposition home or self-care (01) ==
LOC: PM 14:36
PROVIDERS: PCP Family Medicine; Visit Provider Anesthesiology
DX: M48.062 Spinal stenosis, lumbar region with neurogenic claudication (principal); M46.1 Sacroiliitis, not elsewhere classified
CPT/HCPCS: G0463

== ENCOUNTER 2024-08-23 08:49 | Day surgery (SDC) | payer MEDICAID, SELFPAY ==
--- OUTSIDE RECORDS SUMMARY | 2024-08-23 08:56 | XMS_ITS | CCD ---
Author Organization [facility] Care Team Providers Care Chemical Process Engineer Name Role Phone Harvey Holt Unavailable NON STAFF Primary Care Provider UnavailDAPHNEY Sotelo Attending Provider [phone] Rumschlag, DO Britt Primary Care Provider Rumcoco, DO Britt Primary Care Provider MD Josué Evangelista Attending Provider Rumcoco, DO Britt Primary Care Provider MD Josué Evangelista Attending Provider [phone] Gómez Sidhu Admitting Unavailable Gómez Sidhu Attending Unavailable NON STAFF Primary Care Unavailable Josué Evangelista Admitting Unavailable Josué Evangleista Attending Unavailable Rumschlag, Britt Primary Care Unavailable Josué Evangelista Admitting Unavailable Josué Evangelista Attending Unavailable Rumschlag, Britt Primary Care Unavailable Josué Evangelista Attending Unavailable Rumschlag, Britt Primary Care Unavailable Josué Evangelista Admitting Unavailable Gómez Sidhu Admitting Unavailable Gómez Sidhu Attending Unavailable Rumschlag, Britt Primary Care Unavailable Josué Evangelista Unavailable [facility] Primary Care Unava ilable MITCHELL TRAYLOR Admitting Unavailable MERCEDES ENRIQUEZ Consulting Unavailable MITCHELL TRAYLOR Attending Unavailable JONN HARGROVE Consulting Unavailable MITCHELL TRAYLOR Consulting Unavailable MISC, DR GARCIAS Attending Unavailable MISC, DR GARCIAS Consulting Unavailable [facility] Primary Care Unava ilable RADHA, DR GARCIAS Admitting Unavailable RUMSCHLAG, BRITT Primary Care Unavailable YVONNE CAMARENA Referring Unavailable NICOL, YVONNE R Referring Unavailable RUMSCHLAG, BRITT [facility] Care Unavailable CANDIS RENTERIA Admitting Unavailable CANDIS RENTERIA Attending Unavailable [facility] Primary Care Unavailable GÓMEZ SIDHU Attending Unavailable Gieboniitis , Andmagdaleno Guaman Attending Unavailable Gieboniitis , Andmagdaleno Guaman Attending Unavailable Gialivia RAWLS, Andrius Guaman Attending Unavailable Giedraitis , Andrius Guaman Attending Unavailable Gieditis , Andrius Guaman Attending Unavailable Giedraitis , Andrius Guaman Attending Unavailable Giedemilia RAWLS, Andrius Guaman Attending Unavailable Allergies Allergy Classification Reported Allergen(s) Allergy Type Date of Onset Reaction(s) Facility (7 sources) penicillAMINE Drug Allergy Unknown [facility] [employer] Other (7 sources) Bee Sting Drug allergy Unknown [facility] [employer] Other (5 sources) Penicillins; Translations: [Penicillins] Allergy to substance 1123-20 21 Unknown Reaction [facility] (5 sources) venom-honey bee; Translations: [venom-honey bee] Allergy to substance 1123-20 21 Swelling [facility] (1 source) bee venom Drug allergy (disorder) [facility] (1 source) Penicillin Drug Allergy [facility] Medications Current Medications Medication Drug [...] Exam NEGATIVE Report Status FINAL 10/16/2023 Normal [facility] Comment on above: Performed By: #### F HPY #### [employer] [address] [place] [address] [phone] Telegraph Office Route Aide: Guy Ramey MD [facility] [address] [place] [address] Telegraph Office Route Aide: Justus Darby MD Surgical Pathology Reporton 10-15-2023 Surgical Pathology Report (NOTE) Path Number: [id number] -- Diagnosis -- A. GE junction, endoscopic [...] each. Microscopic examination performed. Processing Lab: [address] [address] Interpretation Performed at [address] [id number] SURGICAL PATHOLOGY CONSULTATION Patient Name: ROSA EASTMAN [facility] Rec: [id number] [facility] ANATOMIC PATHOLOGY [address] [place] [address]. [place], [place] [address] Normal [facility] CBC with Diffon 10-14-2023 Abs. Basophil 0.17 k/uL Normal 0.00-0.20 [facility] Comment on above: Performed By: #### C DP #### [facility] [address] [place], [place] [phone] Telegraph Office Route Aide: Justus Darby MD Abs.Imm.Granulocyte 0.04 k/uL Normal 0.00-0.30 [facility] Comment on above: Performed By: #### C DP #### [facility] [address] [place], [place] [phone] Telegraph Office Route Aide: Justus Darby MD Abs.Neutrophil (Seg) 5.08 k/uL Normal 1.50-8.10 [facility] Comment on above: Performed By: #### C DP #### [facility] [address] [place], [place] [phone] Telegraph Office Route Aide: Justus Darby MD Basophils/100 WBC (Bld) 2 % Normal 0-[address] [facility] Comment on above: Performed By: #### C DP #### [address] [place], [place] [phone] Telegraph Office Route Aide: Justus Darby MD Eosinophils (Bld) [#/Vol] 0.43 10*3/uL Normal 0.00-0.44 [facility] Comment on above: Performed By: #### C DP #### [facility] [address] [place], [place] [phone] Telegraph Office Route Aide: Justus Darby MD Eosinophils/100 WBC (Bld) 4 % Normal 1-4 [facility] Comment on above: Performed By: #### C DP #### [facility] [address] [place] [address] [address] Office Route Aide: Justus Darby MD Erythrocyte distribution width (RBC) [Ratio] 12.3 % Normal 11.8-14.4 [facility] Comment on above: Performed By: #### C DP #### [facility] [address] [place] [address] [address] Route Aide: Justus Darby MD Hematocrit (Bld) [Volume fraction] 44.4 % Normal 40.7-50.3 [facility] Comment on above: Performed By: #### C DP #### [facility] [address] [place], [facility]83 Telegraph Office Route Aide: Justus Darby MD Hemoglobin (Bld) [Mass/Vol] 14.6 g/dL Normal 13.0-17.0 [facility] Comment on above: Performed By: #### C DP #### [facility] [address] [place], [facility]83 Telegraph Office Route Aide: Justus Darby MD Immature granulocytes/100 WBC (Bld) 0 % Normal 0 [facility] Comment on above: Performed By: #### C DP #### [facility] [address] [place], [facility]83 Telegraph Office Route Aide: Justus Darby MD Lymphocytes (Bld) [#/Vol] 3.86 10*3/uL High 1.10-3.70 [facility] Comment on above: Performed By: #### C DP #### [facility] [address] [place], [facility]83 [employer] Route Aide: Justus Darby MD Lymphocytes/100 WBC (Bld) 36 % Normal 24-43 [facility] Comment on above: Performed By: #### C DP #### [facility] [address] [place] [address] [address] Office Route Aide: Justus Darby MD MCH (RBC) [Entitic mass] 30.9 pg Normal 25.2-33.5 [facility] Comment on above: Performed By: #### C DP #### [facility] [address] [place], [place] [phone] Telegraph Office Route Aide: Justus Darby MD MCHC (RBC) [Mass/Vol] 32.9 g/dL Normal 28.4-34.8 [facility] Comment on above: Performed By: #### C DP #### [address] [place] [phone] Telegraph Office Route Aide: Justus Darby MD MCV (RBC) [Entitic vol] 93.9 fL Normal 82.6-102.[address] [facility] Comment on above: Performed By: #### C DP #### [address] [place], [place] [phone] Telegraph Office Route Aide: Justus Darby MD Monocytes (Bld) [#/Vol] 1.05 10*3/uL Normal 0.10-1.20 [facility] Comment on above: Performed By: #### C DP #### [facility] [address] [place] [address] Dr. [place], [place] [phone] Telegraph Office Route Aide: Justus Darby MD Monocytes/100 WBC (Bld) 10 % Normal 3-[address] [facility] Comment on above: Performed By: #### C DP #### [address] [place], [place] [phone] Telegraph Office Route Aide: Justus Darby MD Neutrophil (Seg) 48 % Normal 36-65 [facility] Comment on above: Performed By: #### C DP #### [facility] [address] [place] [address] Dr. [place], [place] [phone] Telegraph Office Route Aide: Justus Darby MD NRBC Automated 0.0 per 100 WBC Normal 0.0 [facility] Comment on above: Performed By: #### C DP #### [facility] [address] [place] [address] Dr. [place], [place] [phone] Telegraph Office Route Aide: Justus Darby MD Platelet mean volume (Bld) [Entitic vol] 9.6 fL Normal 8.1-13.5 [facility] Comment on above: Performed By: #### C DP #### [facility] [address] [place] [phone] Telegraph Office Route Aide: Justus Darby MD Platelets (Bld) [#/Vol] 297 10*3/uL Normal 138-453 [facility] Comment on above: Performed By: #### C DP #### [facility] [address] [place] [phone] Telegraph Office Route Aide: Justus Darby MD RBC (Bld) [#/Vol] 4.73 10*6/uL Normal 4.21-5.77 [facility] Comment on above: Performed By: #### C DP #### [facility] [address] [place] [phone] Telegraph Office Route Aide: Justus Darby MD WBC (Bld) [#/Vol] 10.6 10*3/uL Normal 3.5-11.3 [facility] Comment on above: Performed By: #### C DP #### [facility] [address] [place] [phone] Telegraph Office Route Aide: Justus Darby MD Basic Metabolic Panelon 03-0 Anion gap [Moles/Vol] 9.8 mmol/L Normal 6.0-15.0 [facility] Comment on above: Performed By: #### C BC, BMP #### [place] [phone] [facility] Calcium [Mass/Vol] 9.1 mg/dL Normal 8.2-10.2 [facility] Comment on above: Result Comment: PERF ORMED BY: [address] [address] PATHOLOGIST TUBE BUILDER GENEVIEVE CANNON M.D. Performed By: #### C BC, BMP #### [place] [address] [place] Chloride [Moles/Vol] 104 mmol/L Normal 95-114 [facility] Comment on above: Performed By: #### C BC, BMP #### [facility] [address] [place] [phone] [facility] CO2 [Moles/Vol] 25.9 mmol/L Normal 22.0-30.0 [facility] Comment on above: Performed By: #### C BC, BMP #### [facility] [address] Creatinine [Mass/Vol] 0.98 mg/dL Normal 0.64-1.27 [facility] Comment on above: Performed By: #### C BC, BMP #### [address] Estimated GFR ( Camila > 60 [facility] Comment on above: Result Comment: GFR estimated reference range: According to KDOQI guidelines, <60 ml/min/1.73m2 is sufficient to diagnose a patient with chronic kidney disease. Performed By: #### C BC, BMP #### [place] [address] [place] Estimated GFR (Non- Am > 60 Normal [facility] Comment on above: Performed By: #### C BC, BMP #### [address] Glucose [Mass/Vol] 82 mg/dL Normal 70-100 [facility] Comment on above: Result Comment: [place] Glucose Reference Range is dependent on time and content of last meal. Glucose of more than 200 mg/dL in a nonstressed, ambulatory subject supports the diagnosis of Diabetes Mellitus. ADA recommended reference range Performed By: #### C BC, BMP #### [facility] [address] [place] [phone] [place] Potassium [Moles/Vol] 3.7 mmol/L Normal 3.5-5.1 [facility] Comment on above: Performed By: #### C BC, BMP #### [facility] [address] [place] [phone] [place] Sodium [Moles/Vol] 136 mmol/L Normal 136-146 [facility] Comment on above: Performed By: #### C BC, BMP #### [facility] [address] Urea nitrogen [Mass/Vol] 11 mg/dL Normal 9-23 [facility] Comment on above: Performed By: #### C BC, BMP #### [facility] [address] Basophils Auto (Bld) [#/Vol] Ordered By: Josué Evangelista on 01-13-2023 Basophils (Bld) [#/Vol] 0.1 10*3/uL 0.0-0.2 [facility] Basophils/100 WBC Auto (Bld) Ordered By: Josué Evangelista on 01-13-2023 Basophils/100 WBC (Bld) 1.2 % . [facility] Calcium [Mass/volume] in Ser um or PlasmaOrdered By: Josué Evangelista on 01-13-2023 Calcium [Mass/Vol] 9.1 mg/dL 8.2-10.2 [facility] Carbon dioxide, total [Moles /volume] in Serum or PlasmaOrdered By: Josué Evangelista on 01-13-2023 CO2 [Moles/Vol] 25.9 mmol/L 22.0-30.0 [facility] Chloride [Moles/volume] in S lai or PlasmaOrdered By: Josué Evangelista on 01-13-2023 Chloride [Moles/Vol] 104 mmol/L 95-114 [facility] Complete Blood Count Auto Di ffon 01-13-2023 Basophils (Bld) [#/Vol] 0.1 10*3/uL Normal 0.0-0.2 [facility] Comment on above: Result Comment: PERF ORMED BY: [facility] [address] [place] [address] PATHOLOGIST TUBE BUILDER GENEVIEVE CANNON M.D. Performed By: #### C MICHELLE, BMP #### [facility] [address] Basophils/100 WBC (Bld) 1.2 % Normal . [facility] Comment on above: Performed By: #### C MICHELLE, BMP #### [facility] [address] Eosinophils (Bld) [#/Vol] 0.5 10*3/uL High 0.0-0.45 [facility] Comment on above: Performed By: #### C BC, BMP #### [address] Eosinophils/100 WBC (Bld) 4.7 % Normal . [facility] Comment on above: Performed By: #### C BC, BMP #### [address] Erythrocyte distribution width (RBC) [Ratio] 12.6 % Normal 12.0-14.8 [facility] Comment on above: Performed By: #### C BC, BMP #### [address] Hematocrit (Bld) [Volume fraction] 41.2 % Normal 38.8-50.0 [facility] Comment on above: Performed By: #### C BC, BMP #### [address] Hemoglobin (Bld) [Mass/Vol] 14.1 g/dL Normal 13.0-17.0 [facility] Comment on above: Performed By: #### C BC, BMP #### [address] Lymphocytes (Bld) [#/Vol] 3.4 10*3/uL Normal 1.00-4.8 [facility] Comment on above: Performed By: #### C BC, BMP #### [place] [address] [place] Lymphocytes/100 WBC (Bld) 33.3 % Normal . [facility] Comment on above: Performed By: #### C BC, BMP #### [address] MCH (RBC) [Entitic mass] 31.7 pg Normal 27.5-35.2 [facility] Comment on above: Performed By: #### C BC, BMP #### [address] [place] [address] [place] MCV (RBC) [Entitic vol] 92.3 fL Normal 83.5-101 [facility] Comment on above: Performed By: #### C BC, BMP #### [address] Mean Corpuscular HGB Conc 34.4 g/dL Normal 32.5-35.6 [facility] Comment on above: Performed By: #### C BC, BMP #### [address] Monocytes (Bld) [#/Vol] 1.0 10*3/uL High 0.0-0.8 [facility] Comment on above: Performed By: #### C BC, BMP #### [address] Monocytes/100 WBC (Bld) 10.1 % Normal . [facility] Comment on above: Performed By: #### C BC, BMP #### [address] Neutrophils (Bld) [#/Vol] 5.2 10*3/uL Normal 1.8-7.7 [facility] Comment on above: Performed By: #### C BC, BMP #### [address] Neutrophils/100 WBC (Bld) 50.7 % Normal . [facility] Comment on above: Performed By: #### C BC, BMP #### [address] NRBC% 0.1 /100{WBC} Normal 0-0.5 [facility] Comment on above: Performed By: #### C BC, BMP #### [address] Platelet mean volume (Bld) [Entitic vol] 7.8 fL Normal 6.6-10.1 [facility] Comment on above: Performed By: #### C BC, BMP #### [address] Platelets (Bld) [#/Vol] 268 10*3/uL Normal 150-450 [facility] Comment on above: Performed By: #### C BC, BMP #### [facility] [address] RBC (Bld) [#/Vol] 4.46 10*6/uL Normal 3.90-5.60 [facility] Comment on above: Performed By: #### C BC, BMP #### [facility] [address] WBC (Bld) [#/Vol] 10.3 10*3/uL Normal 4.1-10.5 [facility] Comment on above: Performed By: #### C MICHELLE, BMP #### [address] Creatinine and Glomerular fi ltration rate.predicted panel (S/P/Bld)Ordered By: Josué Evangelista on 01-13-2023 Creatinine [Mass/Vol] 0.98 mg/dL 0.64-1.27 [facility] ECG 12 lead ECGon 01-13-2023 ECG 12 lead ECG [facility] [place] [address] [place] [address] Electrocardiograph Report Signed Patient: Rosa Eastman MR#: [id number] : 1965 Acct:[id number] Age/Sex: 57 / M ADM Date: 01/13/23 Loc: Room: Type: [facility] Attending Dr: Josué Evangelista MD Ordering Provider: [...] Marylin Eisenberg MD 0 01/14/23 1534 Normal [facility] Eosinophils Auto (Bld) [#/Vo l]Ordered By: Josué Evangelista on 01-13-2023 Eosinophils (Bld) [#/Vol] 0.5 10*3/uL 0.0-0.45 [facility] Eosinophils/100 WBC Auto (Bl d)Ordered By: Josué Evangelista on 01-13-2023 Eosinophils/100 WBC (Bld) 4.7 % . [facility] Erythrocyte distribution wid th Auto (RBC) [Ratio]Ordered By: Josué Evangelista on 01-13-2023 Erythrocyte distribution width (RBC) [Ratio] 12.6 % 12.0-14.8 [facility] Estimated glomerular filtrat ion rate (GFR) non- AmericanOrdered By: Josué Evangelista on 01-13-2023 GFR/1.73 sq M.predicted among non-blacks MDRD (S/P/Bld) [Vol rate/Area] > 60 mL/Min [facility] Glucose [Mass/volume] in Ser um or PlasmaOrdered By: Josué Evangelista on 01-13-2023 Glucose [Mass/Vol] 82 mg/dL 70-100 [facility] Comment on above: ADA recommended refe rence rangeRandom Glucose Reference Range is dependent on time and content of last meal. Glucose of more than 200 mg/dL in a nonstressed, ambulatory subject supports the diagnosis of Diabetes Mellitus. Hematocrit Auto (Bld) [Volum e fraction]Ordered By: Josué Evangelista on 01-13-2023 Hematocrit (Bld) [Volume fraction] 41.2 % 38.8-50.0 [facility] Hemoglobin [Mass/volume] in BloodOrdered By: Josué Evangelista on 01-13-2023 Hemoglobin (Bld) [Mass/Vol] 14.1 g/dL 13.0-17.0 [facility] Leukocytes [#/volume] correc lesly for nucleated erythrocytes in Blood by Automated counOrdered By: Josué Evangelista on 01-13-2023 WBC corrected for nucl RBC Auto (Bld) [#/Vol] 10.3 10*3/uL 4.1-10.5 [facility] Lymphocytes Auto (Bld) [#/Vo l]Ordered By: Josué Evangelista on 01-13-2023 Lymphocytes (Bld) [#/Vol] 3.4 10*3/uL 1.00-4.8 [facility] Lymphocytes/100 WBC Auto (Bl d)Ordered By: Josué Evangelista on 01-13-2023 Lymphocytes/100 WBC (Bld) 33.3 % . [facility] MCH Auto (RBC) [Entitic mass ]Ordered By: Josué Evangelista on 01-13-2023 MCH (RBC) [Entitic mass] 31.7 pg 27.5-35.2 [facility] MCHC Auto (RBC) [Mass/Vol]Or dered By: Josué Evangelista on 01-13-2023 MCHC (RBC) [Mass/Vol] 34.4 g/dL 32.5-35.6 [facility] MCV Auto (RBC) [Entitic vol] Ordered By: Josué Evangelista on 01-13-2023 MCV (RBC) [Entitic vol] 92.3 fL 83.5-101 [facility] Monocytes Auto (Bld) [#/Vol] Ordered By: Josué Evangelista on 01-13-2023 Monocytes (Bld) [#/Vol] 1.0 10*3/uL 0.0-0.8 [facility] Monocytes/100 WBC Auto (Bld) Ordered By: Josué Evangelista on 01-13-2023 Monocytes/100 WBC (Bld) 10.1 % . [facility] Neutrophils Auto (Bld) [#/Vo l]Ordered By: Josué Evangelista on 01-13-2023 Neutrophils (Bld) [#/Vol] 5.2 10*3/uL 1.8-7.7 [facility] Neutrophils/100 WBC Auto (Bl d)Ordered By: Josué Evangelista on 01-13-2023 Neutrophils/100 WBC (Bld) 50.7 % . [facility] No Panel InformationOrdered By: Josué Evangelista on 01-13-2023 Estimated GFR () > 60 mL/Min [facility] Comment on above: GFR estimated refere nce range: According to KDOQI guidelines, <60 ml/min/1.73m2 is sufficient to diagnose a patient with chronic kidney disease. Pharmacy Creatinine Clearance (Chem N/A [facility] Nucleated erythrocytes [Pres ence] in Blood by Automated countOrdered By: Josué Evangelista on 01-13-2023 Nucleated RBC Auto Ql (Bld) 0.1 /100{WBC} 0-0.5 [facility] Platelet mean volume Auto (B ld) [Entitic vol]Ordered By: Josué Evangelista on 01-13-2023 Platelet mean volume (Bld) [Entitic vol] 7.8 fL 6.6-10.1 [facility] Platelets Auto (Bld) [#/Vol] Ordered By: Josué Evangelista on 01-13-2023 Platelets (Bld) [#/Vol] 268 10*3/uL 150-450 [facility] Potassium [Moles/volume] in Serum or PlasmaOrdered By: Josué Evangelista on 01-13-2023 Potassium [Moles/Vol] 3.7 mmol/L 3.5-5.1 [facility] RBC Auto (Bld) [#/Vol]Ordere d By: Josué Evangelista on 01-13-2023 RBC (Bld) [#/Vol] 4.46 10*6/uL 3.90-5.60 [facility] Serum or plasma anion gap de terminationOrdered By: Josué Evangelista on 01-13-2023 Anion gap [Moles/Vol] 9.8 mmol/L 6.0-15.0 [facility] Sodium [Moles/volume] in Ser um or PlasmaOrdered By: Josué Evangelista on 01-13-2023 Sodium [Moles/Vol] 136 mmol/L 136-146 [facility] Urea nitrogen [Mass/volume] in Serum or PlasmaOrdered By: Josué Evangelista on 01-13-2023 Urea nitrogen [Mass/Vol] 11 mg/dL 9-23 [facility] WBC Auto (Bld) [#/Vol]Ordere d By: Josué Evangelista on 01-13-2023 WBC (Bld) [#/Vol] 10.3 10*3/uL 4.1-10.5 [facility] XR cerv spine AP/LAT/FLX/EXT on 12-06-2022 XR cerv spine AP/LAT/FLX/EXT [facility] [place] [address] [place] [address] XRay Report Signed Patient: Rosa Eastman MR#: [id number] : 1965 Acct:[id number] Age/Sex: 57 / M ADM Date: 12/06/22 Loc: XD Room: Type: [facility] Attending Dr: Josué Evangelista MD [...] M.D.12/06/2022 2:26 PM Dictation Location: [place] [address] Transcribed By: [facility] 12/06/221425 Dictated By: Erasmo Maddox DO 12/06/221421 Signed By: 12/06/22 142 Normal [facility] CBC AUTO DIFFon 08-10-2022 BASO # 0.2 103/ul Critically high 0.0-0.1 [facility] Comment on above: Performed By: #### C BC #### [facility] [address] [place] [address] Dr. Mars Sanders Basophils/100 WBC (Bld) 2.0 % Normal 0.2-2.0 [facility] Comment on above: Performed By: #### C BC #### [facility] [address] [place] [address] Dr. Mars Sanders EO # 0.5 103/ul Normal 0.0-0.7 [facility] Comment on above: Performed By: #### C BC #### [facility] [address] [place] [address] Dr. Mars Sanders Eosinophils/100 WBC (Bld) 5.7 % Normal 0.9-7.0 [facility] Comment on above: Performed By: #### C BC #### [facility] [address] [place] [address] Dr. Mars Sanders Erythrocyte distribution width (RBC) [Ratio] 12.4 % Normal 11.0-15.0 [facility] Comment on above: Performed By: #### C BC #### [facility] [address] [place] [address] Dr. Mars Sanders Hematocrit (Bld) [Volume fraction] 41.8 % Critically low 42.0-54.0 [facility] Comment on above: Performed By: #### C BC #### [facility] [facility] [address] [place] [address] Dr. Mars Sanders Hemoglobin (Bld) [Mass/Vol] 14.0 g/dL Normal 14.0-18.0 [facility] Comment on above: Performed By: #### C BC #### [facility] [address] [place] [address] Dr. Mars Sanders IG # 0.02 10e3/ul Normal 0.00-0.03 [facility] Comment on above: Performed By: #### C BC #### [facility] [address] [place] [address] Dr. Mars Sanders IG % 0.2 % Normal 0.0-0.5 [facility] Comment on above: Performed By: #### C BC #### [facility] [address] [place] [address] Dr. Mars Sanders LYMPH # 3.1 103/ul Normal 1.2-3.8 [facility] Comment on above: Performed By: #### C BC #### [facility] [address] [place] [address] Dr. Mars Sanders Lymphocytes/100 WBC (Bld) 36.3 % Normal 20.5-60.0 [facility] Comment on above: Performed By: #### C BC #### [facility] [address] [place] [address] Dr. Mars Sanders MANUAL DIFF REQ NO Normal [facility] Comment on above: Performed By: #### C BC #### [facility] [address] [place] [address] Dr. Mars Sanders MCH (RBC) [Entitic mass] 31.4 pg Normal 25.9-34.0 [facility] Comment on above: Performed By: #### C BC #### [facility] [address] [place] [address] Dr. Mars Sanders MCHC (RBC) [Mass/Vol] 33.5 g/dL Normal 29.9-35.2 [facility] Comment on above: Performed By: #### C BC #### [facility] [address] [place] [address] Dr. Mars Sanders MCV (RBC) [Entitic vol] 93.7 fL Normal 80.0-94.0 [facility] Comment on above: Performed By: #### C BC #### [facility] [address] [place] [address] Dr. Mars Sanders MONO # 0.8 103/ul Normal 0.3-0.8 [facility] Comment on above: Performed By: #### C BC #### [facility] [address] [place] [address] Dr. Mars Sanders Monocytes/100 WBC (Bld) 10.0 % Normal 1.7-12.0 [facility] Comment on above: Performed By: #### C BC #### [facility] [address] [place] [address] Dr. Mars Sanders NEUT # 3.9 103/ul Normal 1.4-6.5 [facility] Comment on above: Performed By: #### C BC #### [facility] [address] [place] [address] Dr. Mars Sanders Neutrophils/100 WBC (Bld) 45.8 % Normal 43.0-75.0 [facility] Comment on above: Performed By: #### C BC #### [facility] [address] [place] [address] Dr. Mars Sanders Platelet mean volume (Bld) [Entitic vol] 9.4 fL Critically low 9.5-13.5 [facility] Comment on above: Performed By: #### C BC #### [facility] [address] [place] [address] Dr. Mars Sanders PLT 251 103/ul Normal 150-450 [facility] Comment on above: Performed By: #### C BC #### [facility] [address] [place] [address] Dr. Mars Sanders RBC 4.46 106/ul Critically low 4.70-6.10 [facility] Comment on above: Performed By: #### C BC #### [facility] [address] [place] [address] Dr. Mars Sanders WBC 8.4 103/ul Normal 4.0-11.0 [facility] Comment on above: Performed By: #### C BC #### [facility] [address] [place] [address] Dr. Mars Sanders D-DIMERon 08-10-2022 D-DIMER 0.35 mg/L FEU Normal <=0.59 [facility] Comment on above: Performed By: #### D DIM #### [facility] [address] [place] [address] Dr. Mars Sanders D-DIMER COMMENTS SEE BELOW Normal [facility] Comment on above: Result Comment: Incr eases [...] hospitalization. Performed By: #### D DIM #### [facility] [address] [place] [address] [address] Mars Sanders PROF 14(COMP METB)on 022 Albumin [Mass/Vol] 3.8 g/dL Normal 3.4-5.0 [facility] Comment on above: Performed By: #### H MIKEYPN, CMP #### [facility] [address] [place] [address] Dr. Mars Sanders Albumin/Globulin [Mass ratio] 1.0 {ratio} Normal [facility] Comment on above: Performed By: #### H ALESSIO, CMP #### [facility] [address] [place] [address] Dr. Mars Sanders ALP [Catalytic activity/Vol] 127 U/L Critically high 46-116 [facility] Comment on above: Performed By: #### H MIKEYPN, CMP #### [facility] [address] [place] [address] Dr. Mars Sanders ALT [Catalytic activity/Vol] 30 U/L Normal 16-63 [facility] Comment on above: Performed By: #### H ALESSIO, CMP #### [facility] [address] [place] [address] Dr. Mars Sanders Anion gap [Moles/Vol] 13.5 mmol/L Normal Th [facility] Comment on above: Performed By: #### H MIKEYPN, CMP #### [facility] [address] [place] [address] Dr. Mars Sanders AST [Catalytic activity/Vol] 20 U/L Normal 15-37 [facility] Comment on above: Performed By: #### H STROPN, CMP #### [facility] [address] [place] [address] Dr. Mars Sanders Bilirubin [Mass/Vol] 0.3 mg/dL Normal 0.2-1.0 [facility] Comment on above: Performed By: #### H STROPN, CMP #### [facility] [address] [address] [address] Mars Sanders Calcium [Mass/Vol] 8.7 mg/dL Normal 8.5-10.[address] [facility] Comment on above: Performed By: #### H STROPN, CMP #### [facility] [address] [address] [address] Mars Sanders Chloride [Moles/Vol] 105 mmol/L Normal 98-107 [facility] Comment on above: Performed By: #### H STROPN, CMP #### [facility] [address] [address] [address] Mars Sanders CO2 [Moles/Vol] 25.4 mmol/L Normal 21.0-32.0 [facility] Comment on above: Performed By: #### H STROPN, CMP #### [facility] [address] [place] [address] Dr. Mars Sanders Creatinine [Mass/Vol] 0.98 mg/dL Normal 0.70-1.30 [facility] Comment on above: Performed By: #### H STROPN, CMP #### [facility] [address] [place] [address] Dr. Mars Sanders EGFR-AF AZERBAIJANI >60 Normal >=60 [facility] Comment on above: Performed By: #### H STROPN, CMP #### [facility] [address] [place] [address] Dr. Mars Sanders EGFR-NON AF AZERBAIJANI >60 Normal >=60 [facility] Comment on above: Performed By: #### H STROPN, CMP #### [facility] [address] [place] [address] Dr. Mars Sanders Globulin (S) [Mass/Vol] 3.9 g/dL Normal T [facility] Comment on above: Performed By: #### H STROPN, CMP #### [facility] [address] [place] [address] Dr. Mars Sanders Glucose [Mass/Vol] 102 mg/dL Normal 74-106 [facility] Comment on above: Performed By: #### H ALESSIO, CMP #### [facility] [address] [place] [address] Dr. Mars Sanders Potassium [Moles/Vol] 3.9 mmol/L Normal 3.5-5.1 [facility] Comment on above: Performed By: #### H ALESSIO, CMP #### [facility] [address] [place] [address] Dr. Mars Sanders Protein [Mass/Vol] 7.7 g/dL Normal 6.4-8.[address] [facility] Comment on above: Performed By: #### H ALESSIO, CMP #### [facility] [address] [place] [address] Dr. Mars Sanders Sodium [Moles/Vol] 140 mmol/L Normal 136-145 [facility] Comment on above: Performed By: #### H ALESSIO, CMP #### [facility] [address] [place] [address] Dr. Mars Sanders Urea nitrogen [Mass/Vol] 14.0 mg/dL Normal 7.0-18.0 [facility] Comment on above: Performed By: #### H ALESSIO, CMP #### [facility] [address] [place] [address] Dr. Mars Sanders Urea nitrogen/Creatinine [Mass ratio] 14.3 mg/mg Normal [facility] Comment on above: Performed By: #### H ALESSIO, CMP #### [facility] [address] [place] [address] Dr. Mars Sanders PROTIMEon 08-10-2022 INR Coag (PPP) [Relative time] 0.95 {INR} Normal [facility] Comment on above: Performed By: #### P T, PTT #### [facility] [address] [place] [address] Dr. Mars Sanders INR GUIDELINES SEE BELOW Normal [facility] Comment on above: Result Comment: EDU RED INR: 2.0 - 3.0 CONDITIONS NOT LISTED BELOW 2.5 - 3.5 FOR PROSTHETIC HEART VALVE REPLACEMENT 2.5 - 3.5 RECURRENT THROMBOSIS Performed By: #### P T, PTT #### [facility] [address] [address] [address] Mars Sanders PT Coag (PPP) [Time] 10.3 s Normal 9.0-11.6 [facility] Comment on above: Performed By: #### P T, PTT #### [facility] [address] [address] [address] Mars Sanders PTTon 08-10-2022 aPTT Coag (Bld) [Time] 29.9 s Normal 22.3-36.2 Th [facility] Comment on above: Performed By: #### P T, PTT #### [facility] [address] [address] [address] Mars Sanders TROPONIN, HIGH SENSITIVITYon 08-10-2022 HSTROP 12.3 pg/mL Normal 4.0-76.1 [facility] Comment on above: Result Comment: CUT- OFF POINTS HAVE BEEN ESTABLISHED BASED ON THE FOURTH UNIVERSAL DEFINITIONS OF MYOCARDIAL INFARCTION. THE UPPER REFERENCE LIMIT (URL) OF TROPONIN, DEFINED THE 99TH PERCENTILE OF cTnI DISTRIBUTION IN A REFERENCE POPULATION, HAS BEEN CONFIRMED THE DECISION THRESHOLD FOR [place] DIAGNOSIS. Performed By: #### H STROPN, CMP #### [facility] [address] [place] [address] Dr. Mars Sanders XR CHEST 1 Von [...] by: JONN HARGROVE Date: 2022-08-10 18:59 Normal [facility] MR head/brain wo conon 07-08 MR head/brain wo [facility] [place] [address] MRI Report Signed Patient: Rosa Eastman MR#: [id number] : [id number] Acct:[id number] Age/Sex: 57 / M ADM Date: 07/08/22 Loc: [facility] Room: Type: [facility] Attending Dr: Gómez Alexander PA-C Copies [...] Rob Funez M.D.07/08/2022 1:37 PM Dictation Location: [place] [address] Transcribed By: [facility] 07/08/22 1337 Dictated By: Rob Funez II, MD 07/08/22 1334 Signed By: 07/08/22 1335 [facility] Folate [Mass/volume] in Seru m or PlasmaOrdered By: Gómez Alexander on 06-21-2022 Folate [Mass/Vol] 7.4 ng/mL >5.9 [facility] Comment on above: Folate reference ran ge: >5.9 ng/ml The WHO technical consultation on folate and vitamin b12 deficiencies has determined that folate concentrations less than 4 ng/ml are considered deficient. Free T4 (Free Thyroxine)on 0 06-21-2022 Free T4 [Mass/Vol] 0.77 ng/dL Normal 0.61-1.12 [facility] Comment on above: Performed By: #### V [id number], T4F, TSH3 #### [address] #### METH #### [facility] , Laboratory - Chemistry and C hemistry - challengeOrdered By: Gómez Alexander on 06-21-2022 Cobalamin (Vitamin B12) [Mass/Vol] 369 pg/mL 180-914 [facility] Methylmalonic Acidon 022 Methylmalonic Acid 241 Normal 0-378 [facility] Comment on above: Result Comment: This test was developed and its performance characteristics determined by [employer]. It has not been cleared or approved by the Food and Drug Administration. Performed at: [facility] [employer] [phone] [address] Office Route Aide: Millicent Calderon MD, Phone: [phone] PERFORMED BY: [place] [address] PATHOLOGIST TUBE BUILDER GENEVIEVE CANNON M.D. Performed By: #### V [id number], T4F, TSH3 #### [address] #### METH #### [facility] , Serum or plasma methylmalona te measurement (moles/volume)Ordered By: Gómez Alexander on 06-21-2022 Methylmalonate [Moles/Vol] 241 nmol/L 0-378 [facility] Comment on above: This test was develo ped and its performance characteristics determined by [employer]. It has not been cleared or approved by the Food and Drug Administration. Performed at: [address] [phone] [address] Route Aide: Millicent Calderon MD, Phone: [phone] TSH DL <= 0.005 mIU/L QnOrde red By: Gómez Alexander on 06-21-2022 TSH Qn 2.46 m[IU]/L 0.45-5.33 [facility] Thyroid Stimulating Hormoneo n 06-21-2022 TSH Qn 2.46 m[IU]/L Normal 0.45-5.33 [facility] Comment on above: Result Comment: PERF ORMED BY: [place] [address] PATHOLOGIST TUBE BUILDER GENEVIEVE CANNON M.D. Performed By: #### V [id number], T4F, TSH3 #### [facility] [address] [place] [address] #### METH #### [facility] , Thyroxine (T4) free [Mass/vo lume] in Serum or PlasmaOrdered By: Gómez Alexander on 06-21-2022 Free T4 [Mass/Vol] 0.77 ng/dL 0.61-1.12 [facility] Vit. B12/Folate Profileon Cobalamin (Vitamin B12) [Mass/Vol] 369 pg/mL Normal 180-914 [facility] Comment on above: Performed By: #### V [id number], T4F, TSH3 #### [facility] [address] [place] [address] [place] #### METH #### [facility] , Folate 7.4 ng/mL Normal >5.9 [facility] Comment on above: Result Comment: Rosa M te reference range: >5.9 ng/ml The WHO technical consultation on folate and vitamin b12 deficiencies has determined that folate concentrations less than 4 ng/ml are considered deficient. Performed By: #### V [id number], T4F, TSH3 #### [facility] [address] [place] [address] [place] #### METH #### [facility] , Coding Summaryon 02-13-2022 Coding Summary [employer] 64 XucsjbcoZTc3tHv+PGhl YWQ+QS2FSVCaM35pnQZc kK6BV7aSBQ4CHKBRPCHF LO3OKG8arTH1XXezX2De biAv OduowWVnWS29XLb9HXH9 iOxtIEbdmU4srVByH2v3 WuMhHD97lC13CVshNJCi UtX7SoWtozhqnFDj M6onWiHwqKPfRto+PHRh YmxlIHdpZHRoPScxMDAl RgHjkZxbAU8iRq8zADUa LWNvbGxhcHNlOiBj q9boQTVlNSziXC4wqOtm K6IhlZK9BNPzg6l5Vz52 dHI+OAZhMLT3uTgpCHmk w165CnBbm1mkOIL8 eBSiGGjgHJM4B40gv2K6 WQUzXHOgOLI7bXK7wC9n ePedfsvaI7KovUSgFfT3 KXN2lWXyiO7epMou ccfvsL3wXdu+G25DEC5R CVJTEE9JCkr4W6HeVlyb dHI+TP14KOCxUJ85fYHr kKVeq5yghXb2EoVm BXGdCVE4oMysXUegt0Bt XARqT90iqMNze9O5IMDl iDytrGQiJePgdEW7eS6p REvgrebnj2vpsjyt Mewcd1uotx31zB48I34b FNazMIHwSAI6VOEbRCNx rCwpxw5aoW7nJw8+IDxj d2syo1kptSm9UjCq OUTifmXafRwhOCE8p1Ff On30Q2WzhQzix1OuUhm5 ad03uSZav6S8gSR6UMrm VCXizN2qATfpOqS8 GKSsHeImvU79tUVpDVeh Oe8emWqfeUgdMF6nXRMy zsebPWWkiL7fZPUanZGf cKkwEL0xGRHekjdg k214OnVqVQU9LULmzGKp W0JjxR8cBnFaNJIaKORr I4LplUWvOTakT055ICmu ZlO4HZYhyjLyW9We AUGiwBseSjU2i6N5Zl4H r9LzcdxpBSM9WNkiEIO7 EjI8JkHgMjP7H7QlQsv1 BXNuaLxvEQ2iP8Nl OIVsgiyzjmammBU6CJIo NURgxV86pFUrNHybMn6y x3K5o538OBSuKMWxtW63 En6yvAnqYDLhnYIP nS0wrhnea9oykoenLiSf JGMgCYi5YQk8SUCqlSdi EwEuJTK2SjT1IPU9sZUv xC1ccYmkgjnkqH3u Oyc+L86xrM1uCGI2ROZ0 bejoJLXlogOzEL43OE30 M2GgReotvLDukOA+PGRp qyKdfNclEV4dMbAf d4nnt0JfROseH5GpOTXx WXchKfr8PBPeMXY1iVP6 xI1aCRRvNLjwn3Z1vHP8 R3TxkyCowl6bt8ub JJHdFCiuZ36koPSnr1W2 MFFknFH7ZCTxmKmzDvIn iY61Jch+ATCkeYpoq5Hl Ncjho6wgf5qgdVm5 IjMwJSIgdmFsaWduPSJ0 s8DnUn42L87rKDyqPIHj FHSiGUQkTHBbsBtfvz9u bF1lJk4+PGNvbCB3 yTM2gU1mPJPyLzV6SAtz U673WlHvlMVzBrvpo5wr t2ytyQs6DlQcOAMpmrKx qWmoUKI0a6QhWf94 X83eBDaeVBMuQJAtLTGd PSGaiTvxpn0edJ4mGs3+ ZA6lq8ugiw64qZ27wSM+ QXMsKDI1cXgxLAmt CRQzmC2gQSobDrS8JYIc FnLjxT78eKUlIZcyHf0r tTxyhCjxZT9kKRNvoohd c249GmJoz4ncDDHe nAOwWNnjMYI0M38db0T8 DVBaPVHzDTP6rVP0qM9l bGlnbjogbGVmdDsgdmVy iWehUSebIAhuI710 IHRvcDsnPlBhdGllbnQg FrOjALg9A7RpXjd0KEZp rMbfTH8iqORjWBteUg5k cJuovJvdKY8eVIHf lzmge167XpXgf6umPEIm hGFvCCaeFXC6E44ch4N1 EROuZXUrUML2nVG8lB1k bGlnbjogbGVmdDsg nzXioJjpPRahWZqbE546 IHRvcDsnPkJpcnRoIERh kNV4MJ11NC19fAYmr3Z1 tAH1U1JqAAWhljuz uimawOC5JBXvGGMusP43 Ct8nhFcjDn6eACEzYAC5 ACDoiVWqV2TpxA2fVaDy RIUsWVSoG5KlqHMg OBvgJ496RPzgCiC7FWAk nvZwF9GsXWXjgTekZdC3 a2O4Fb6ZN9T8AQ08YS16 pQCzs6C7fQI2J7Ec MNZacxnyzhpuhKA6MOBw JJBggL63Cu2uhHmjYk3n GDArMBY4LMQqpFWpN8Ag hW8pHpJxFFLsHDWy B0GisRDkJMcyT118FUnf LeH0RDNpkvZvA5IqMOYi mKhmWnO7v0P6Fy8CKXd4 AM01PV69cSGki0O0 iAD7P2BiGTLjxuiwtxoc rMN8ZVNuEEPxmR93Nh2x iQsyFh6fYNKxYKI6WABb tIYnB0LlrT5lUiXv IJUxBACmS8CfyDYeCUjs E133LGgzCdN7NSHybyVz W3HxZSIevKgwTmX7l5F2 Sj0VBKIjKF67OTX9 nUE3YR43AC89T5BvDjuj dGFibGU+PHRhYmxlIHdp ZHRoPScxMDAlJyBzdHls PX4fHo5xUCTlUGZf hQatyQMuLkDdj5ajPOQc FHzkUT1hiKvqG7XrbWV9 GUZxf7v7Nn82R67vN1Nr dXA+KAGwlPI3fCY6 qJ8qPeWlRcR4HKcgY557 EhUvsOWfIdway0hrr5pi tLc2NzX7YEFwysDslPyo UFH8k9OpGz58S61r IHdpZHRoPSIxNSUiIHZh bHnziw4wvU8kZv4+PGNv zBJ6uGF5cO3dQgLwVqS1 RCwwU908OuNcoSCt Vpfod0enp1mecBi0UsVz ZLRwejYziBsjSFT0j7Yw Mt67D2AowYeto9PqUyv5 oc05aVOzx4J1lJT2 P2KrMNLnsqiwbTRvbTsx TY4gSMHbrvbmXUPfwM0b OCMoX4a4XaJdKvJ3GDek R1UnsjL1CMVnjMHi UThbMLC4J63zn6F6MUTi FWReNHR1rPQ7yR5duWiz bjogbGVmdDsgdmVydGlj PJdzUKfgG916OQPq pJsaAXGeeI6dZLBgkLTq gYqjDX8dWYJujrgrXlLU E3HVA15EDCHPT7WXFjTa XSgCXD48O7EnQgv6 AJRqnQggTQ3dzQPeROos Td9vbOgtvNwoZJ2oDIUr quluNNZysB2sSQBdzRPs sZkcAS3xQNLejcaf v383TxWgXNS0QXNfwOLx B4SxgG5xNtBjZNPuLSRm A1ZonIKqOUylU166GXnt TkC9OFItunPyC8Cx CIGaeDftNbB1d7W0Of5w SX0mAz8aCTC3KK68KF21 bPDez2J2hCB9W8TeTISa fcyycsyewPT5WSFx KQBusY86iBVlWHxiFy6m q9D6r052KWUzPZLmnT06 It9feVoeISAqmDPNhL1z dzhsv0hqzficTtRg CXBdJLq2IKy5OOChgZsn ZoHwMKN6LlN3VKI2gIAa iT8qtRoijmtohT8cPez+ VALmTHAwtfC9V8Df Jkl9SAUrhDmfKM1szKNx HFvzBm5iwVlksWusTK0v PHZrksddCJIfyY1gLXAs pWOrwUneDV8aOXXb abzsd885MfYiEHI1XAXk xMVtO5UqmW5vDeCvFSXc NWYuI5SlkOEuRMmoP381 SUwvErF2YRMthfRb E9JlMXRyrDgsJsM7n7P8 Az3HAGkQQB52IF51kAMa z2Z3fUC8N9VkSRZwzqyz angvsBD1ABEdPCNx cK69zXBuPKicUv1bh8Q3 o274WYDdFRPemW07Ji4d lPgaKSDwgOTOzB7aocus v6uhlqtmFjVyBZNf DLa3TSg3MVRuaEvhMsWa BID8QpW6OMY7uFWidW2n qXkycbmyxZ7zQks+T1A8 I5TzQusvvOK+PC90 FCDjKI73sDQenCOzh0qa uJa8FkWzRAQyNHE9cAuq OSbzf2YwTQKrS57woPLn b3R6HEGsmCeuiIAd PvDdgSN3uX1jFZikrtqo y3cihkcbDkmnj3guaf91 cD08W54mLNocINHqLVXr NNClSVAiaJuhef1h tQ8nNo1+WDIsxSP0hLD6 rF3vFnYjYgW1UVyuB499 YeWdbKVyLaefq2kvq4sz sPu4WzWqBGHsmiZe gLcxZDP2a9WzHi45C15u IHdpZHRoPSIyMCUiIHZh jSklea4ghW8lDl4+PC9j r9ebua41pW15cQS+ ZKPtRRX6nOvfXTnfWSOe jT2cESkxFiY0XNKrRzFy mS53yKTxYBxyTr3ijDkl iYyrGH8dSYJletgd w317XcAux8bwVGLesXAj IRlwHSR4Y61mm0E8WPAx PSUkPSW3qOU1uP9owTmz bjogbGVmdDsgdmVy rKyeMSnfHEynV548UBBa aAuiOwWunVWtM0imrzJQ ZF6kVanxqDR+PHRkIHN0 eXzxMTiqNMIsoX1l KQZuA3n8LbBdLpP1OBwl W0CtalW6JWZreQKkUVBf aRPCpL9kicgzi8dfboho ZyZmXKCwTSg4SDi5 PGDxsRilBzOqDTT2EyN3 XED4qKMcxV4xdHhaysbx cI9lRjc+RklOOjwvdGQ+ SVCiJGJ6lKzjCNzt INUadK3jPTGpS8d6KwMb EqR3YGygA6GrleZ2YGYd fCUcZNNvgYOZrK8rdwdl u8nynnqeYaCoZCUg ILm6ITh5QMVixBcfPbJc PTM9MvG8KSM9gGLtqB7z jJdesdpifO0oPkb+TVJO OjwvdGQ+PHRkIHN0 xMpbRCfuYLHapO5dBLZp P3t2UoTuClA2HBlsM8Gp zbL7YUBjfPBwWOEtlZOH bH1ydlzcc0tzlzxw QzNgZZRuGGy3RMa8EDOe yWmzBtLqURR3EjX0HRK9 zOGtlR7uoAmlyzkfbJ5k Oyc+KXZ2NBY6XS54 HK47B0HtEkcglMDerHE+ PHRhYmxlIHdpZHRoPScx WWSrKjXvsVvyFJ6tYw9x ZGVyLWNvbGxhcHNl OiB (more content not included)... [facility] Coding Summary [employer] 64 VjlnomsoSVk0cTl+PGhl YWQ+RY8EMMVvO01epFDf qE0NM5oKFE3QWSHJXYAD AM3FQN1dvQI7GTuaJ3Za biAv MygbgTUjEK84YCp5JWY2 xBwyYFmzfM5abGKkC4h3 BuGhDV12gX78EZwdLCWm ItW2WmDcxpviuNPt U1yyKvIfjVTzEod+PHRh YmxlIHdpZHRoPScxMDAl UjDvsPebIU3qTg9cBHQr LWNvbGxhcHNlOiBj n0zfHVBgAHpfMP6haEzk Q1EfcEA4FSTyc9c6Qs14 dHI+YOIaHWY4nDccXAgj r704AkPse0dwXPS2 fHRrBMzsRPJ5Z60pm5N1 ASUhDOOoJPU5yVI5gZ9k pMtvtzdqD9XawERiDvJ1 ZYU1xTGhgO8shAxq xcvkjI8eCtu+O14VXR3M TYUACT1GXsz3Y5IqPtow dHI+JK18WGDbDJ81uEOp uUEvz8bwtKb1UsCa SBTwHHY0bTvxNPfdj5Qe HCYqT09rrZJse3Z9URRa qLbetUGpGsNkiIX2kL6l PIncxvfcp4gujnwd Payhy9zikl44mB90S62a SMiaWFEkWCP8ROYpNRHb pBifqh5uxT7sXm8+IDxj t3jpi4yyuGn0RqDa QQTqpqCntCruBAN3v7Ih Fq34X3EknZkli1EbFyo4 za34lLUsf8Y0yDE9UHql SUFwfF4uVPqbGpM7 PYPoLvZteK06uBBaXHvy Ok5oyDzldYfhJK3zOJOx uxcaXHOsxU4wLQWsbNUv cKssMJ0oIKYruglt s830MyTzCNQ2KKFohAKk A9XpgM5uHsAuBHDbVHRh F4XprHTtLHdfI842BLqg BkG0HMDsrpTuH0Db SCVitZdcTdI5s5C6Lm4M n2YlyowxWTX0SYmuDUV4 KyD4NlYaYpV8J3HtPgv1 ZUXbuJpsYQ8nK3Qp NIFawscuskttvVO0SCLv FFZyeM66kXXaVVdlRx8e w1F3h999XRKkPNLetK63 Nd8soDgrCURbhGJA oC8lrasqy1bnajnuIvLw RMAaPNq7DEy7MYQgqUvn BkQoOJD9KrK5IKJ3aONj sC6grImfvxotbV5p Oyc+Y33ikO1pVJR7PTO1 ovagWVYyvwVnJJ86UK29 P7RtFchqoAMnzCS+PGRp ecMyoUwpKQ6uAjPz g1sfy4NnZGkxD8FwMVPx UTawWso0MVEfQCH7kBM5 mS3kRLVrXGffk3Y5aJB0 B6MpshDyuf6ip4dg UUMjUFrpH43ewDFdk8G1 IDDkxBR4NYNhnQwnCzPs eS30Atg+YOTtoQguy1Kh Lbsau1uvy4ryiAu7 IjMwJSIgdmFsaWduPSJ0 e8FgMc80T16dSLxqVXYi BHNsNWRvAMXzcWemiz1e dD4gKq8+PGNvbCB3 dMH3qB5uGZTkTpE5RCru E606DmSexPIdJxrvi5xx v8xdmHb2QhHwDPDcqmWh nCqmADW7i7GoFh32 A51vEMnrPSRqNIBfAYVs ZJKhiAuewi9pbE1zOs2+ ZS4ij3vulh25bD04jNF+ ULJzENC8cAewBJci HXDqfM2yENvlKlT9MAVa ZyZedG57rOIaTPajEf3d mDfnuZreKV3nLYFgbugs h008VdKfv0lfWSHn qTGzWQvuMEW8L50vh7C6 TVBbPBWgOKB7kZX1gQ2p bGlnbjogbGVmdDsgdmVy zCweGSvvPFcbZ505 IHRvcDsnPlBhdGllbnQg ZrUkELo8C5TcJwm8UAVx uLzpFD7uhWPbMTetWa5c lHwynYrsBC7jCRKz lneau868QsBhk0miPOUr xIDzQDmtJWR1E64jj7J7 ESCzFJJjLZW6cZX0wI2n bGlnbjogbGVmdDsg pnUhrSmeXRsyIRgoD814 IHRvcDsnPkJpcnRoIERh nIB2BY57JH19qAIrk8P0 uSI5L2ZyCPRfcjoz erkhdZI5OOImNRLdnK88 Nv6flJhoHu7eVBEwFFS1 NUDwwHZsK4EfyV0cOnOj CYSmUDQpJ6KufGWw QPkuN011ZMloCoZ1WHJc baLzF4UeRROcvKxjJnS0 m4L0Io4GR9V4ED58DD30 eSRnp8A4vBB2X7Rl BHRzxnybkdjshBM8AEHa QNGinR61Xl2maJrlDo7q WRJqNPT1AAYydOQbE5Ac eG7eWyDfDZZgNZZs P0VtmVCbIJdmN939CWrj DdP6NHXoezLgZ4ApNVCs nYqgBcW8r6A0Yo4DNXj3 RD61ZQ81vURdh2Z8 bHN5I4MqKUYhnzewkfzr jOW1TAQhREQqsE10Gf0t lTdpXw3sMVQpQIW6EHLx wEYkZ4QmzO7iThAs CHItTMVmL6SqaKUwYYsr H604BYumMcO9DGLpfiSg Z7HpZLCwwXqmYcE5u4F3 Mv6OZTGnGY31OYW8 sSW6LX25TN60Z2DlPmgh dGFibGU+PHRhYmxlIHdp ZHRoPScxMDAlJyBzdHls EI8gXq2lJKSjGCTc mEampLXxXgVfq9xjSJBn AVtxSM7mnNdvM1CyeFU0 BOQjp7x6Cz03B89pU3Ik dXA+TZItoZA1fQJ7 yB6dYzCvBqA0LZpzS163 NqQwpKLkBmcik4jov0nf sQi1LcF1PPHumvZwwJsj XMW5g7GnIu24P85h IHdpZHRoPSIxNSUiIHZh lBhnqa0snL3jOt3+PGNv qVV4nXH2lT9cDuXzOhM1 AUafK833WoCifZXb Uejdt2dji4itiRl9JfMl YXWiizFfsEpiFZZ6j1Oa Ku86D8WaeZnpf8UjTqy1 fn74xKIxg4G4rUC0 C6NzRWPqbhnvkPEwdWvq WI9lIEUbkpkoOAChzZ0f KEZjG2n2HbNeUcP5EEar U6KllcG5KYFwqCYd KQybMKK2V47cp8L4THPn ZGUjJSK8xOL6eN2enPso bjogbGVmdDsgdmVydGlj GTlzJUnsG775DFQt wUrySGKteG2tYBUinPZz pHfxQV3wTQPbhgguTrXH P4NPD33WQWLHM8UYSzSx CSnVDF18B4HdGvz4 STLkvZeqRF3vvBEcEHtm Pz1hxGlgkMxdFS2bYYTq gmftLDRtkM0oLCOjaKJv zOctSV7rLDMincrg h432DjEkEJM9BWNzcMQz W6MoyV4mPuMrZAIeXJTb R5QshSOdTNyoQ990SRqc XjQ8VPUzxyBpX1Vm FZMcaSsmWjI6a4M6Dm5s SR2zEk2sAAM4HW60ST41 qGSmw0G5gMX2U9QiITSy apshodzqmQK6TZLj ZNNfdE89oPGgCOcqHe8i v0G9o040JVVpYCCqwO99 Rj9htIfsEKLqwLVXgD7u plbop9lkqpioGmSt PIHfKOq2OYp0SUYuvRch SdBgQTU6HvQ4VEN0cZBq gJ8dfXuwobyduL5xAiw+ WAOgGJWmyrD6F4Ul Mow6UJSyoSiiSK8hnEBc TWxmOg9yaBxfcOabST5s ZTQlsbueALXdjG9pXTEt yHUeuSpwTE9eRLGq sxysb828EuBhSCO8LFFt xJVlE9ZkoV2vSuBrWDEs EPFsS2GryCCmURljP464 EPjhRiO7KCGxvaSc D6AmXDBouKgpOmU8c1G2 Ld4STFsTWC37HW68vZNn i5R0wEQ2C7WgJDOiojxz lnfpuUK6LWLxOJVx pG89jKMkOYjvDi1bl9Q0 i846PKZrRXCcsY79Wr1f cOzfIFWzpKVYzE7qkkxo c5ogoijnHqPnCGLa IBn2XSo5KOBqyUjsYoUa DLW0KxH5TDJ5xCQjqY3v vRgnepywjK4yIfg+RW1l xqxulmI5MR68UO48 A5EdXjyjtNJkeCU+PHRh YmxlIHdpZHRoPScxMDAl XgRqyMaoER8wYf1rHQJg LWNvbGxhcHNlOiBj e5bpCKEdCIchNQ0ivOts F6ApsTX4AIHwj3b6Ax29 I35zK3PxmGC+PGNvbCB3 pAO7zG6aIvXrCpX6 TRipB608UtUsqNUeEikh l5taz3cfwMa6MyMmHMBw waBxuYmuECZ6a2YdYf02 N52zRIorBTHmKTEl AYXiOMDtzGheni3vnG5z Ii8+HJSznPS4aQF8uG1c VfGrYtC1KOjuV490YbAd pDQlDjjkE19hE7Ci dXA+SMQeFnd4ZUAkcYxe TF8ntOWnGLimSy5iPGB8 BwTtSgXmZKrvW3VbZBYt shlkptngnZL3BMBe GWIeaM17Hf0dwKpmUg3h XRYuEAD9RPXxlCHhU5Vl xE0iMhLnHWRkZYLqV8Xm jSUpOWciN374CLrq VgL6FYEcpvNqQ1VmUPQx sHngJpG2l5W6Et4XdBlg tBMyCJ1jXfJwDVz5O4Ix Jgt1ESEqcLbbNF7q kQDvEXkgEy9khUtujBff XA7wIPZcizgus223GuCp b2wmDBDfnTHkVQrfWWD1 B97pr7A9JEFxLDKv RXW8iQK5wX1csYegmyif bGVmdDsgdmVydGljYWwt KZmzY589SAYerYwhJiMF Xdk9W9QgHil2QIOb hGlqSB6myKWjLWxeAt9m iFnnfTgdXQ3lJJZfbjjm e856ScJyr6qrAXZbuJIh CQvkHHX9F80mg0V5 LPNrIJIpWNS2jZD7tN7f bGlnbjogbGVmdDsgdmVy cGpeLVmaVVbcJ390DPNb sRosIj2IIrh4M8Fu Fmc9IWHnqQncNS6lqILz GPwhGq2azIeglIugRU0s VPHjhkfal796PnBhm8fr IDEwcHQgVGltZXM7 B42vr3E9RYXyVEAeTYO7 mUN9pF2sgAtkzpuxgBFw dDsgdmVydGljYWwtYWxp R513ATLflEjrHvJa eWVyOjwvdGQ+LU20pb96 C1IjCqowTys3GCXvDNW2 jQU0kR7eQONiQVncx4N6 kSK1U3UeadHdzv4c b2x (more content not included)... [facility] ED Clinical Summaryon 2021 ED Clinical Summary [facility] - Emergency Department [address] [place] [id number] ED Clinical Summary PERSON INFORMATION Name: ROSA EASTMAN Age: 56 Years Sex: MALE : 1965 MRN: Acct#: Visit Reason: Hand pain-swelling; RT HAND SWELLING/NUMBNESS AND TINGLING Arrival: 02/05/2022 14:13:58 Discharge: 02/05/2022 15:08:00 LOS: 000 00:55 Check In: 02/05/2022 14:13:58 Checkout:02/05/2022 15:08:00 Address: [address] [place] [address] PCP: Britt Goodman DO PROVIDER INFORMATION Provider [...] Follow-Up: With: Address: When: Andrew Mckenzie DO [address] [place] [address] Within 3 to 5 days Comments: Diagnosis [...] for reevaluation. Prescription is electronically sent to [facility]. Return to the emergency department for worsening symptoms or concerns, acute shortness of breath, chest pain, abdominal pain, nausea or vomiting, or any questions. DIAGNOSIS: 1:Cubital tunnel syndrome on right; 2:Paresthesia of hand Patient Understands: Yes - Patient/family/careg iver verbalizes understanding of instructions given Comment: [facility] ED Note-Nursingon 02-05-2022 ED Note-Nursing Pt presents to the ED with right hand numbness and tingling that started Friday. Pt also states swelling, none seen at this time. Pt states a hx of surgery to his right Arm for a pinched nerve 3 years ago. [facility] ED Patient Summaryon 022 ED Patient Summary [facility] - Emergency Department [address] [id number] PATIENT DISCHARGE INSTRUCTIONS Patient Information Name: ROSA EASTMAN Age: 56 Years Date of : 1965 Reason For Visit: Hand pain-swelling; RT HAND SWELLING/NUMBNESS AND TINGLING Arrival Time: 02/05/2022 14:13:58 Primary Care Physician: Britt Goodman DO Attending Physician: Lennie Wilcox MD Comment: Visit Diagnosis: Diagnoses This Visit Cubital tunnel syndrome on right (G56.21) Hand pain-swelling ([id number]) Paresthesia of hand (R20.2) Prescription Information: If you have been given a prescription for narcotics, seek immediate medical attention if you have any difficulty breathing or any sudden status changes such as confusion and sleepiness. If you or anyone you know is experiencing suicidal thoughts, mental health, alcohol and/or drug addiction problems; contact the Mental Health [facility] Recovery [facility] 02/06 Crisis Hotline -Text 4HIDY ou 089825. If you received any narcotics, sedation, or [...] documents With: Address: When: Andrew Mckenzie DO [address] [place] [address] Within 3 to 5 days Comments: Diagnosis [...] for reevaluation. Prescription is electronically sent to [facility]. Return to the emergency department for worsening symptoms or concerns, acute shortness of breath, chest pain, abdominal pain, nausea or vomiting, or any questions. Medication Information: The exam and treatment you received today in the [facility] Emergency Department were for an urgent problem and are not intended as complete care. It is important for you to follow up with a doctor, nurse practitioner, or physician?s ob gyn physician assistant for ongoing care. If your symptoms [...] so we can reach you if necessary. [facility] Emergency Department has provided you with a complete list of medications post discharge. Please inform your sound recording technician/provider of your visit and for further instruction on these medications. Any specific questions regarding your chronic medications and dosages should be discussed with your primary care physician(s) and/or pharmacist. New Medications [facility] [place] [address], [facility] [place], [place] [id number], [phone] predniSONE (predniSONE 20 mg oral tablet) 2 tab(s) Oral every day for 5 Days. Refills: 0. Additional medications on your home medication list not specifically addressed. Please contact the ordering physician if you have questions about these medications. acetaminophen-hydroc odone (hydrocodone-acetami nophen 5 mg-325 mg (Rydal 5)) 1 tab(s) Oral Every 6 hours as needed as needed for pain. latanoprost ophthalmic (latanoprost 0.005% ophthalmic solution) 1 Drops Ophthalmic once a day (at bedtime). both eyes. Visit Information Allergies: Substance Reaction Symptoms Type Comments Bee Stings Drug penicillins Drug Vi (more content not included)... [facility] Provider Orderson 10-18-2021 Provider Orders [id number] #[id number] [facility] Coding Summaryon 10-15-2021 Coding Summary HTMLBase 64 DgyryovmFQg0qFg+PGhl YWQ+AS0PTFZjB36ohSPv fM6HK3sZPW5SOGYZGQYR XW9NOD6roOZ2IKlpO4Ug biAv YjlriTJbAX87FNb7NKI2 xXsqVOvngJ3ckZWqT9f0 TkTwVG98sM22YFjnEMOu LxO5AiDkkiqczOWy Y9mqIlDfuQYwTxc+PHRh YmxlIHdpZHRoPScxMDAl EkWnsOdhMC3nXe2gLHGh LWNvbGxhcHNlOiBj v8cnHSCoECkjMT2zcLes W8ThcZD8NWLpa6b6Qa19 dHI+XSIsOYE8aPxvSSsu o727RgMbj1acMHV2 dQMaWYzsZHO6B95hr5L2 HJSmBXHmSUQ9aYK8hJ0n bGumrnfnH8HfkZJjLsK9 NBQ1aCZsfY5zmVxt sidhjM1lAgf+Z47FBM0R MZALRS7GVpe5A0YxOwmc dHI+YC91URDpTS09oWWe fSCxv0sayUg9IvLq GVSlNBE2qBnvAPezr9Af DGQdQ14xvUWwn1O3CYAj yXqvmKFyYrDxbCN3eX1z ZQiemizzv7eeuwru Hwozu3lcob13rE68Z59u EJrrWJPhHGU7VDEjEGCx yFocej3qtC3sHm4+IDxj b4rwh2epmBv5CcGp NCLdciLvzXycXER6e5Ww Wd30N4BwfBdrq7JgOve7 ib36qMOtk3G2lYR6YYkw NHVrmX6zGKmeDeK2 LJJhOtTniY35yTQkHVau Qu3pvQixjDzwAX7bEJAz uiwbVCGzwW5xFQDwfTPk cNxjXH8pOPHjhacd x967RuPqQNE9MWHmlOFo I8IyuJ7gKuLsMRZeFREc N0PswDSgXUszN034QZfa ZuM8OXUkijLsQ9Xq FFGmbFclWtK7l1H7Sq6S e9JtfrezGUZ2KRkqXWUd JeQ2JfGaRxE0J4GsOgf9 MHMtkBaiLZ0bB4Gf GFWskpskkbgfsTI1CDBe ODWxyW76mNNeXIleTy0v m3K2d239RWPzRROgdR22 Pk9bzQfqAWJwpUWL oL1abwsxx3mtdvcnTsTz LBZqJIp8USq2LMKpxJuy JeTwOEQ4MeL1RAC8zPWi aH8gkOowhjrttE8c Oyc+T33krS6sDNE0EJT3 cnfzMALjwrYbNS82IA23 O5CwOvmlaTBreFH+PGRp mgJroRitIJ7uXlDx y4bba0XvAYpjJ0NhUHIy UMpzIfo5MVUrDPC1oZG4 sM8vPLOqGBbyu1L6bPH8 S0LgakEsqk6zw4at VZRhDVhxF01ltRTqw0P8 WZGmuUQ5BGVbsBxiOvBb yW18Yoj+JCWceIjps0Gc Lioxb9sqs3apaZr9 IjMwJSIgdmFsaWduPSJ0 u4WzTv73M97mDQpjJFXk QJZiNHMiCJDzeLoahm8c bS0hSf4+PGNvbCB3 cTR1pW3mJODfHqC0SFjj E041HsAavEUaGfbjb3ga i9bcuZa2SoPwWEGjbrNn fFlxNDX4e8UfUk45 Y97hIVqiIBAyJRGuEFWa NCGrsMjzdv4ljS6xRr2+ WF5nd2ruaz39qF24zZO+ YTMrGHS7tOhbBOgh MGPczU2eRJtjIkC3SDLh RiTwdB46dLXzUZqkEy6a mRfziTglJL5rRHGjwepk z682UtSdw6nfUMCr xTPvAJkoIXN0X18ay0O3 ACBjOTAbLXQ7dTE5vC1d bGlnbjogbGVmdDsgdmVy vAcjWQtwYQubL162 IHRvcDsnPlBhdGllbnQg IyMtNSu5Y8PpKah6YKTw dOuaZV3kbXRaIMbuKp6q lQfevTdcLQ4fWTMj lrrvz016OvOgq0foWWBq bJUsHGhnTJX4S91ez9Q7 ZGBgKWHcOXK0aXL9dQ3c bGlnbjogbGVmdDsg buMkwYmtKGxqABcuI079 IHRvcDsnPkJpcnRoIERh jNU3YM33BN59oTKrq4W0 uLH4R4VaSMJhpudi rhmsxBK0HPUjCKNthH73 Sm2maIrvWl4lNZQtIHW1 UUZulARrE8GnpU6eWdHk IFYvWBLuY3YxbYNk JImwG688NFdqBiS7NLUn oaFiV2GkWXZayEevCkG3 v3F2Ny5ID3H5IU96ZC52 wTBks3J4iWP9L5It IDYutdzneitsgML1XLPs ZGOsaH32Jc6fwNmeNm5s JTTkMEA4QLGjjYVeN2Zg uZ0pRgHlONTeJXXt T1PqgRGnYMkcX400RPlc YiU8BDEhptMwO9FbUTGi yGxhWxF6k9M3Fc9NQGn0 KR43PQ45qLMig4P1 mLC4K4TlRKSdgqitmzoe lNJ8VSItRFBteV42Fu6t vXynNj6iNUMlFMZ0JQNu lPUbL1JddD1gDhGp KBDeHZMsW6ZmpSSmICrd A208GUpvRiS3PQGexjYp E1EnPOPgpFyyRxX7r5W0 Jl3UDQZaHW81IHH1 fGE6MN08GT07R3PnOwip dGFibGU+PHRhYmxlIHdp ZHRoPScxMDAlJyBzdHls XD6wTl3tUNJoMXPa wZjjhQOqVsYtg5fiKNFe GVquRH9dhPenW3GwvZX0 NAZyi5j0Qs19V41rS3Gb dXA+TRFssUN5lCY8 rV6sLkBnDfQ8VIvdJ610 XtQbwWVlNmwkg7ocq3iz tIg7OsC0FYCsrgXkoMwy SJK3z3AzAg30T63b IHdpZHRoPSIxNSUiIHZh tMovsl9kqL4dIr9+PGNv uMJ9tXN6xB8zXmIxIcD1 DZiiW204ZpPgeXWn Dtdcl2nea0zozHv0OzLp TDCwdhAdsZuhENO4r6Jl Ic36L4RubUddn5LcYbs0 kp59kTUox4P5zKM3 F4SnJPSpnenbwGWknVvy QS3aOHFsxqgmEQFoqO9l CDPwA3k3CbSpUpL6UPtq M6ZhnfY0JDTvbDZv RQorILU2R63ow1Z2GFGl LJSjQSA3wWY6yH3erEih bjogbGVmdDsgdmVydGlj JLcrOJpjI063CAAv sEslGAYqwF0kACCikPJe bHawIQ8bUOPyxadmVxYT U6IWD51CJUZRS1AHUdIl DZlSMR85W1GuFtf2 PLJgeWbtLZ6xtEGfVSxm Xd7jsUmznHvkCE9yWTUa unuiMUBqaY4pHLJsvLQh dZcfGD2pYSPmkmzo h986GpFeAPW9RZZefPTb B2WlvE2tEzBtOIClMEIw Y1CieMYnRCrtG926JRdi YxP0RHSstaUfT9Cv CTHslJmoQsG1i2K8Pi8u TT8uPb7hNSL2WE40ST81 qARqp6D2mSZ3P0IhNFUl gaaljworhWK2KJSv DCWpeE03rQDjCXltWw7a n3L7n030WEPlTJUwgQ04 Fe5nxTxqEZVqlUGLiK2x smwwc3srzksmCvVa LDGqDPk8OBi1IBOglVbo WaSlFAE1NdG0FHC1mWWq bU7pqAzqtgerdM4vBku+ ZHOeRUBfhbO5W2Uw Ukd1OTCqwKbvWT0ffLJd TOjeQl3vbGqgnHyeFO3h ZPUowrpqDWNuiW5mOSFx jNHaxLtsUX9jRTSv ebtlz028McBuYGV1UUXb hZXzO4PamS0gGkMpSDDr MWDqI5AeoDOyXPpyB245 CNnoHpW9WYVjvgJi P3OzSRAmcTecWfI4a1Z0 Ii7BBDpVDO05OE18yEGj z2F7hUB1O1QwWLVyjgdt cveplIY4CJEeBJCq sH90jBHcQHqjRk7ub5S2 k141YZDaRKCzrT71Ih9p wBcsRAKjePQVqC6jxkxu i6vfsgcnHjVmNGUg RIq5AOo5QJQjbLppIdFy ULW9GmN8WSM2eIWzwY9h xWqaxreonL2iVkg+T1A8 G4PiYldpsPE+PC90 QCLcZM25nKOdkHFfx8ez tPd1FhVcKQIhISH9lQwz DOljx8YxUFMgK87zsIEp o2U1ADOvmEcgzAXw QmWsjBI1eI5fOCxzsuco c9mqozwsLpqrx1tkcb75 dP67B10iANuuKBYxCOYh XLYbYWCsaGmzkv5f qN3lEu7+VEHqiCL2lRK5 iB3yWjWmWlM4QLmtK064 VuKcuAOaUvnio4oxg1qv xLq4MqGhLSGnspVe bJxlOUY4i7NfTh91E61h IHdpZHRoPSIyMCUiIHZh lPqiht6auY6zZa8+PC9j k4xllc16fC08kXS+ PELqHWB3jCgvVXbsULWw dX3hMRbkQuE1WPPxToKn jV48kOJiTKbuTu5tqCpi lSelMG5dHXJoieko i432MfTki0ahXPMrvLSx QWaiPZD4F80ve2I7DMGl ZEJeYDH3bUZ8lW3mbIfn bjogbGVmdDsgdmVy uGdxLKggJFanA049MJUg wZnlXzXxcWJsZ6trgtPK CZ4pLfplvLI+PHRkIHN0 cObpTRstKNLmuU9u LWTiX5y6JkTbKhV8QBgq O5IpoaB7KMUhtFVzWKWv bTBSwS0omxlxj1iesqkt YmCwFFToVJr1SCz6 VSItoJpvWiFnBPD1ZxD3 PRH8bRRmbF1qvCsikzvp rK5nSyi+RklOOjwvdGQ+ ETDdWXN3hJteITer RRAonX6eSVEsP0f0WjIr XxH4CZslN8WpvlM2TJEk cMReLNLsmOPFmU3tjrkv i6crxyhrJtUzPJBu SUo6FZo0DIMybLoyZlOm PZE2FjA9MCT9zXBfrI3q fBpoqaehuD6kYdl+TVJO OjwvdGQ+PHRkIHN0 iFhrXZufDAUqsY5bSKOl G4k7QmAmNbV9FYpnY9Bg prH2TYVxsHGyPTBihCLI dU8uxqnmx4skbqhh FjHmQRGcVCy2STn9ISSe rFcdQdQpLCV2GgH2APH9 wBSozQ9bjHypqiqkhH8r Oyc+LLM7OVO1PG69 VT42F2NmPcpqiWKdlTX+ PHRhYmxlIHdpZHRoPScx ZRPeBqZtwClkGD0kZi6v ZGVyLWNvbGxhcHNl OiB (more content not included)... [facility] Rad - MRI Reporton Rad - MRI Report [id number] [id number] [facility] MRA Neck w/o Contraston MRA Neck [...] Torre MD 10/12/21 7:46 am Technologist: JERRI [facility] Coding Summaryon 08-30-2021 [facility] YgqgkfkoIAn7eHd+PGhl YWQ+HI9HBDMaB53huGYc nD8WS1jDOM0PSEBBQNAU OP1NUA8xjFQ8XHwtG6Fm biAv EoplhWRjKM69HYu0MWO0 gVvhATkqaX8ljJAsT9d4 XmRkCH23oA38HTdnDHAv FvO4IwRmghikzGEi S1ybOfVedHWgQuz+PHRh YmxlIHdpZHRoPScxMDAl VpYqlMyqDN8zHt3eHYRg LWNvbGxhcHNlOiBj r2qtZHEfTKfnGO4zqIcu M8RxtQO5JWMdo0d8Sq84 dHI+ZCZvTHY6uMmeCPeo f424HjEba6yzSED0 nJQyNPddDKE1E38lo1G2 SOWdNKUjZWO1iLJ6kT7r cCldpiusR6NsjMDyRmI3 YWJ6qFRybO1voInp vyoqsZ9eKna+T77HWW5X YFUIRU1AXcp4R7HqAzkz dHI+AS44UPVxAG98pTEu iJSbt0ngfKt2SqAh KJPoMQN5mIpzAFmai9Yp BFWvK75rhWVab5G6MHBu lDexlTWsPuYlbLY5qA9f YZwosajjj8yjtcad Okkbe5gdqk74mM58K46p HWrvVNOoWSX2MYOdQPRl dUabrh9gqG6wOd5+IDxj h9rtm8zhmUn5TgHe NYPugwWfkHjoPRI6r3No Iy47Y1CavVfva7XgZcw3 tk47fSEmn7B9bEC9BAwo VHEidM9eWKjfNpN7 DDGxZlPrzM97eJUpVQka Gc3ouUvurRezCC8yWVGd pgueLGKrkT7tPDYhdCOg bSdnLM4oKKMbkonf m935SwPfNNK1JOFybJPa I2QecV7uGoQzXKUrLBMg Z7TzbSMfJUjiU196ZScn IrC2KAVsgrGvM5Wu TJLakLgqNhL4p2X6Oa6W g5ZpklgzGVR5LTexTVSn EhVmUiLbMmE8K1ClQrm8 HXDyjFdlPK7dR6Pp JWYqwdduwwwgvFZ1MFLn IDUukL29vSVyXYpzQl9a o4T2d569ZZWmGMIirZ69 Wo1maJqfPZQbdKMA dW0ssxsik0pxsldhBoFs DALuYVd0ZUu6JSLyaJnp AlBwXYO3BnQ4BCU4wEMg xE3tzTfxpirwaN6c Oyc+I98maZ4qWIQ8QWP7 tkydCPEcqdTdVY03YC14 M6ViLqtzvBShuUF+PGRp meXrnVmoBA2bRwXc s1mfd6NuYZxzT2HiCXCi CRqjJwx9TPJtCSG6lWA2 lY2hRYZsHRgmb8J2gZL6 D6FiguGfen5fz1he IFNnSVoxV76wvGWzs5I5 RSYzwXI2BKGowTkwVeHg gW94Orb+NSPopRcax9Od Egipt8rkg3hweBn4 IjMwJSIgdmFsaWduPSJ0 p6ZfPq29K71lIWjiTCJb IUHaQCJaQJDlpNrvwt7l gX3rBa6+PGNvbCB3 yLS3gT0fRWEdCpR4QNaj O462ShMylSLuUlngx3al b9kxaPi3OhDsULHkwdKt pTniFIJ1s0RiJd31 W62tUXoaYSLfPQGiDDJl LQDihTqwom3mxH0gBj3+ BZ5ze3dyas96mU48yTE+ QDEfREI0ePlfVApl XXZkhN8wYEwnOvJ5VDRb XrYodZ01yJKgAWwkJi4a oFkxwLdjBX7kPIXrxxcj g859GgAlx7dyVNCm tTHeCYxvXQJ1Q20ho2P7 BDPmGSHnKIV2xXY1sX7q bGlnbjogbGVmdDsgdmVy mGlhATdaPXpoM572 IHRvcDsnPlBhdGllbnQg DrIsPEb8X0BfMgv0SZXk zXziBG4acVIbXInuEt6r qLggwIxxZP5xHQKg piyhy361UvAbj9rjHMDl tJTsRWgdFLK5M63oj9P4 YPEvJKWhDVQ6oJP4cT1w bGlnbjogbGVmdDsg hpJvuEvjPPyaMNuhY242 IHRvcDsnPkJpcnRoIERh bIT6HW02YH58wPLoz8A1 yFE8C3TpRPLjfpud iiknzPQ9DDXqCCBczK78 Lk9qnLwcOb2iCOZoANW5 DFVixWAjB4HjrJ7fNjKo GWKdIQWxX4JwoVCl HZoaS852MPluKpJ3LEXo tsKkB3RwTMXscEgpLeZ6 b8W0No3BL4G6CD70RL46 iFXxx0S5xAM1J0Xh RPXgozrabwqqcEY5SSLs BLAtqS06Do1lbLiyHm6y AEQxNLN1MRUabZLeX4Jx xN9vUvOuHEPrTZCz B3IbyESaXTcqT354UHtn TgJ6LOSbavPxL8HtDHLm lBgmQsJ3a5E4Ap7ZSCz6 MJ58MF55dTNmt7V2 wMJ7R6SyKXOjedcktulx bSF5ACSpVEYhnJ14Ci7n cZusBg6kYHRqNQW6LTVn oAZcW9ZoyZ5lMrVm GEUlKDRmL3NdjUYoHJzj X287AUikTdC2TDJklvLx Y6OfZNBtsQdnIbU1b1G9 Wm1VEYZrPL30PER8 pCF4OB69WM89R5ExTnub dGFibGU+PHRhYmxlIHdp ZHRoPScxMDAlJyBzdHls HU5jDj0yBSQgLXCl uYqwbEAcUaJjp7kkIKZy MAldXH8vpYsxM3KtrAM2 IADzu0c6Ym20Z30kA8Ro dXA+JZFesVB7dHD7 wV3qPsAfIxL7FNmsQ653 HzYrdOIiRyjbr6pqq9qm bTp6BgS8MRYbwvJsnEac FQN8n7IjGa70H39e IHdpZHRoPSIxNSUiIHZh vLwrfc3hmY6wLq5+PGNv pRH8pOM8vX5dMcMdCqF1 CWwcX475QeRzfVPg Pzezn0mis5lgaYo1RfDx FXWgztKuqLgtPOZ7w3Pa Ni45U4AobTghp1ZoGkq6 yl33iHPrq8R4uPF7 B5UeCXMpeyttyEMmcKex MJ6fHODaifodJCPucK8r SIPgO0l2CqLjIxI9UIan V9RahjO7NJRgvTJq GDoyALS2X24ge3E4ZKNt XIUpSKP2pDR4iR3xkXdt bjogbGVmdDsgdmVydGlj WLrnKHnpA303PNMx qVneGHKatF3wMHGajVDf aUyoMV9dRWWsgsfpVnTA T2GWR30BKJWNG1ZKViYu OOtFNQ99N6JjNpo9 ZMLreEfyBJ3rsWTzGAsb Rd0nsYpmiVevWT9iJVSf ctoaYDQijU9sZGEvxWRz aRlqAH9sONFdenho g518YzNtFKS8YKOubCYh K4ZqcI1wSzAvALTwMJFr I1NssFNsRIfmR439FTyi IaE4AJRkcwXfR3Af WNTfaJhwBoL3j5H8Ns5y KN2wJt5jSDH5SP02YP93 eMLvo2S6tAC7L9IfOICj cqdegmjdlNA9JVGo NCDnuW03rLEhMUzxBn4c n6R8w717ABDbKYUyzN38 Go7pcZpqOKNguKBNrO1o kyyza5ncyzfjEkEg HKXrYSy6CNe3MLTbsSai OuMjJAX3GvV4UHJ4bZNe zR9mnCzbovqnbD3bMxx+ ZGNtXWLdsvO8Z3Xl Fzr2RGWykSutHD8aoMRl EBpgJz8zsVymvHxvAD5e HBCphbraSNEydJ7gBOGs dGBvdBncUZ1fLYPq kqvgd015BvQkFZN6ALHr cKFiT2OzfM5mUtUjWOAu FOEiB0MdtILeHDveS453 WNnuJuH1UQZpblHd C0JiMLImeCmqWlO4d9Y7 Ue1VIReYMV79JG06aEXw h9W9iAA9I3HeIFUcfhub chyczTK7XGOrOFGk jI03kDUoMTdsGj3hn9Z5 m416OBSyVABhxE73Cw0f bJqpEMJvaSPWrA1syjpe d0qxubolQqIqYMPp PZw9ZUp7RXIseIgmCzMk RGL6VuR1ZZU8tWNkkV3w lFuvawehwQ4mNdp+T1A8 J7IuGdkmgES+PC90 DCMnVF84hTShvISna9ma hAp8RlKsOMDgHGI1nMpm YLpsg0QnKBRyN01qfSMf u5H6MTIkbMtdvSYs WxDzsFT6wW0bWEfqrvqd j4pylvurBqifo3vbil14 bD99Z78zFFarGWVgKHRd QNOuBUGosKkjhm5q aV7bSh0+FREeaZS0bTY0 zH1qRkSsEaX8FShuS315 EcHesMQfBipwn7qlb3zx pSt5OiKzKYWukfCu lGldEBF0c8DjYr73R27u IHdpZHRoPSIyMCUiIHZh qSykwj0fjX9hBr0+PC9j h7tbmg82lJ38nJX+ JORpLZY2cWxcOJdbZCZp yZ6rOWiqYbR9MTRjEfCj zO26qOKjNFleRy5giSlh lRskAL3fLPQiefed q569EjLdc1zmZEXgxUJz JJqbNVX9Q63jv5D9UJQm PHVwHWO9sNE0lQ9nfFac bjogbGVmdDsgdmVy iUjmALnxXUeqJ822MMKx hBlyFjCczIAvC2dfivUN DB5mQbvcoIJ+PHRkIHN0 kEpiPHxzRMSgmW4h ELKqE0q2WkTwSkW4ELfe E2BbamN3FOTntJXgQRGr yZCYeY0yqksku4jzegvw WzTjRDAaASv5XLi7 PXDbwQfqIpAhOXB7LfN3 GLH4gZPamM5vvKhaqfyr kE9xGqu+RklOOjwvdGQ+ NQTfUSV9rKieZPqq PWJnsH4uFWReW4o2FyIj TfI8SRvxS2UnbwS0RYSj oOJkCYPuhAOSuW2ihpzm n7atdepiHiOtWVTp SFb5QEq2QZGfkPklZaWj GEQ6ByK2GVV7wJJlwW8v lJmiaeoisI6ySky+TVJO OjwvdGQ+PHRkIHN0 tApjAYqfQJEtrS5aTBVx W3v0PjXmYtE8NEfzT2Ml qfV1OTMfqZAaAIVkyEXV aY0dtrhjp7ebmxth HjIoFPDvVCa1CFd3KKAa oLvwKgKmJEJ7XqR7MNX4 cZZvdF6tiOwirhjraT3v Oyc+JWX7DYI3PK15 BM61X6JhCcbmqSXigAH+ PHRhYmxlIHdpZHRoPScx LFBwHyEdePybUM7bRa6u ZGVyLWNvbGxhcHNl OiB (more content not included)... [facility] Coding Summaryon 08-29-2021 Coding Summary HTMLBase 64 BafweafhXTn5kGk+PGhl YWQ+MM5MOHJuR54xdSXl zA8UO2bOHA6ZBYCWVAWL LC3TSD8hzIH3MFbcM2Cs biAv LpjvgYFzMJ34ZLb3BZX3 cCrhJWxtrX5tqUFcL8z5 GaJtAX50pA79MGdlZEIf GyT5KrQrywimvGEx H9egXqVsqTEpEut+PHRh YmxlIHdpZHRoPScxMDAl GvCltFtsPT7cVb9gKIDm LWNvbGxhcHNlOiBj f0meHJYeYAqfRD2sjIvv F3IbcJC7ECEem4y5Ko63 dHI+FAByEWG9vWizEVli g061UlRqw2mpYCP8 jEOtFUmdAPG5L29mf2W2 YHWaZBCxDYZ8nKP7aL3y vUckpvjfW2TtkEGxRmS5 GRX7pECygK2lvPxa qyegaE3tNdn+S41AGC1P ZZDEQZ1BMhh6B1UeEfzn dHI+MP85YSAmSW62gAGj qSVaw5evlZa3JtUo VQJmLZP5oVysXZmon5Fz SFEwS18tiRPdu5M5DEPm gJryaWWcXlHvvFB4yJ1z IOfpqibvr8tzaxbg Yedrc8ekaj30uE00U04h HOlxTYZcJYI4FIMxNVAb gBzopt9abG1tWm3+IDxj r6cik2xycPk5QiRi EQXoqlFynCzeOLM8v5Ft Sa62A6SayZasn7GzAvj0 xj56lNIhl3U4rCW4EHki VQMhbM5jQLmvTkO0 HFSoRcUbuN18gEEvPBca Zi1bvUuoaKrqPL7yTFRd xjupSDUivW6iCFJpfWZp wFhsMM4mIVHowdzp g106JkDhAWO4YZMkbREy O5VqtG7uAkDqBIAiVLGx X3LboQNdBGhcD885BBwy MvN6EGUzbqKhN0Hj FDLddStvBbZ2t2O7Gx4J h5WszsbtLHE8GTgsCSPo RbCqNmCpDuE5N1LsKej7 MNByoKzvVP4iL5Jv XWAhdmstymdnpQU5CELd DTDwhP89oUKaWOqzFk0n f2S9c395JRWkDTFjiC21 Ad6lbBliDWXhoJBN rQ2iegkzw5kgrevtJoRl PMVlBDw3TMm0SWWyuVvn CpTwEYG2YyE7TBX6lFQn lM5raJeteufgnN8z Oyc+L41uiN1iAYD2DOU2 yztoMZVxtiGfLP67WW98 A1MlDwcvuUBkrVK+PGRp spXsdMjwDQ9aLkXw i5obv5MhCChaM0MtPYGg STsoJeb7JGHvFGI6oTB3 fV8iOWAbRKumc2H6lDL2 Z5GzbxPiby3xh8pk VFUxCOlsV25jqFBat2X1 ORFqpYI8TWBqzZdgTpXl zB21Iut+IHEitQnhu7Tu Xhxoq8zzh8maiVp0 IjMwJSIgdmFsaWduPSJ0 e3LzPv84G75pTFneIWGd SJIcSUDvIAIydXyaxy3x vU7oMh3+PGNvbCB3 uMQ6tG2zQYAkHtM7ITpc E037CcDrjNRtKwzzf9pm d4ialCr0GbQpCMTdjsUt hHdzQBO3v7UyOd55 M69hWAxlUQJwUUGhJYDb RIMcaVbcaz9osQ9wWx6+ HM9hp5dqfr42zH97mCM+ GVSiJDJ4bBidDBcs GAKgaU7cNXczSsX2HJEq PqFrzJ47kXDaHUxfNe7k lPrgmUklHV1nRXYttgxn g595DbRvn0fvXQHr oOHoDHvuTAG2S30ea7N0 VOPcRGQmWDU7dLY9uQ9t bGlnbjogbGVmdDsgdmVy fWymNLdvVYzkJ660 IHRvcDsnPlBhdGllbnQg SwTnXCo8Z0InYme9AXSp tLjrAA5jfGMbJDyqJg8p hNlkcAoxAB5dHXZs afpxj451KnYpd8ccKIIr yELeZMcwJET6K15ye8P4 DXKdLENtILH9wVA7aV3b bGlnbjogbGVmdDsg hpNpbZmnCPudUBvsB985 IHRvcDsnPkJpcnRoIERh qMM6PR42BD66cGSsd6B2 hCW3L0AlUUQggvko vynynAE8ZYMvGUGfeU66 Kq3mxGzfUj3fGZUlRQA6 TRZnsNCaR2JeoW7mBnLv EMIfGVLcM1HwjDRe JImlL027NYppYxE3GIRr kiQxG7NzKIFafAlkEgR6 t3L8Wr6NU0X0LA61AR89 nPEgs9O3wYM7F1Ik VCAqxeyosmunwBZ9MOTp PTVhnD59Ce5wyOxzYy1r DBUxVWH7XLItwBJjY5Uv sW6yFvZqGMMrIQSi R7OhlVWqPKcqU072AGyz ZiC7AROrgtXsJ6PpDPId nOezRkC8z7S0Nq9KWRe8 TM54NP46rOBsd8G0 dKI7L9MgFXXfnxzxvsei fDA9AIWwORStwS83Zh7b tOwoGq7xDFBxZLP4QYOw iCVfA6PdzU4oMbUw FFSvXBYhT2GhgQFsJWfj L392MHmwHaM3IELhqaZn Z0WeSCFyySfkLhO2v6P3 Td4XMPVnNR36FXJ3 wQF1FO38ID66Y4DbNcas dGFibGU+PHRhYmxlIHdp ZHRoPScxMDAlJyBzdHls TM1vXx4aRZLsXEZo dZkocLLmSySgq5vhRUHv PXglRD5suOasJ2LbrKL4 YKLti0h2Yh33N02rH5Ag dXA+PYJldWG9uME7 bP5zXpBbLfB1EGpfQ068 FgZftFLrGangc9ubu5eh vBu5RsI8EIXgpzGflHhk CGX4n7JaVl77C48b IHdpZHRoPSIxNSUiIHZh mQwxyw2moH5lQy0+PGNv oTN8kPF2mD0mKuFvGiN4 XJchI992KpBncZCb Lfhtz2wwr2waiZl7PpZh NNBpdxBreEwrZKH1n7Dx Ag50W4TdeWjss4GlEnn0 he51rUCut1U8qYU7 O5MzUUItvokzqZXxoOiq JV0dWVCkgigoOMKojW1z XBQiE1f5McWyFuK1VVmw O6SvoqT4QWJmfMXs CMpmTXL7R78ov0X3KLIf QANhXLK7mQT4wY0mgEvl bjogbGVmdDsgdmVydGlj BGriMOjfO205RWGc rNtfUHOekT9rWAWhgKRl nUysDR3pTLFmzavoCnTC O7YVE25AGLKVE4ECCeIf RFbPTL16J7MrWrp2 DHSzvBprMG2xtETeMYst Hg7nzGbcxXnbUG9gPZBe ihvjSOCwjM7zEHQfkLMy rDesPS1zQQUgcndj z017QqWxVAD4RNFtbNFy I5EhdQ8lTuUgWPHiNRVb F8YwjOWwOQwmO187OZyx MpL5TTMbotHzM3Mb VSXbfKylZfY2p6E9Qf2s UJ8oGh4gFRT4NO51IQ34 iFBpw8E1yBQ1K4YvMRMw wztodxbsqPK9UNJc GTZiyA80tWFpSZbcIn8d i9H7i244GTKlWCMfmY33 Zu0cyRieIYLxdZLMzM5v pgvbi4gskxpbRvWi IZBeEAa9LBl6KCEozXgt IjVbSTS2ErT8CAY6nZAz nJ6yfUxqplahkB3fMvz+ HPHwNKDefmL5E7Ew Tjd0LCGvuRjaEF4blERp WJlpYs5oeKyryXsaBG8d CVKrjidtSNFfnV3vJXEa zVRchOchXK3oNURz mayqz532KkShJSC4NBRh cEVhR2BhiB2iFaCtXSVj XBRhN0AuaFTdJHqzE365 GBooTwO2EASbsuHr A9PeDQZndVcaQfN9w0A9 Ir8XGEiZGH44MC79aSTv u4M3aLK9I7FuQOHhmtgt nqokoGN2QNZfYGYx hK50tHKzHZlhFs6oq0C2 z066ZYBoVCDboU37Xl6c mVyaQNZvhDKRaF2sjrei a2ltcwdyRdNtPCEu WXa7MTz3ZUCmzHwgUzVo OIA8HuX4NAE4tIOfcZ1t wLnupuitrK2pLuf+T1A8 I1CeKjbqsEL+PC90 RWFyFW42vTAtfLThb4bd bHi6YpFiXDUpCLP3nUcu IGktn6PgJNWzP46tmXHw j4Y5QSBrnUvcbLUd ZuYldLZ5eF4dALtrpmyg t2knsbduFests4ssiv80 jD08I21sOApqKIFfXVZh KXKjBSKhmHzkwq3g nN5rOl0+VCQwmLJ3mXB3 jV9kFeHgSjC6HNalR176 GgIesHLcDqfgh2aux2gf jIx0SqAkAJQlnlSt kSpiYCR9q3RvCs46N07p IHdpZHRoPSIyMCUiIHZh cEaynk6laX6oLn7+PC9j c6jmsw86rC10dKP+ TJAmHOS5fMtdCHvaHDPp sJ4uUZzxAhK3DFIvBkMe cH05mSCiQXgpMa5zrItk zUbxFP9uJDDrffyd b470GoPag2iiXKImgHFk QEnbIPF6S12hm5Z8YMFk XWXzEGC3yHP2sO5izUrp bjogbGVmdDsgdmVy sKxlMCunKGimA526KEKq jCncDwJatXWbO2hzlhPK RM7iBlsayOV+PHRkIHN0 xPhuDTcxPQUebL8a WWCkU7z0DgNiJxY1LIjh Q7HbmwF9QZFqcKBsEIIp dPLGjT8gkufwn0usoauq JkItVWBjAVu1VXd1 LIUmlHokAvUuEAQ3QxL6 FAJ6pWSovW8vwPvlukuo nL9iWte+RklOOjwvdGQ+ PRLlHFV7eBptUJyo TKZeiE0oUFHfH1c3KkYp XnI9GWcuO3MlaiZ1HUCt jCMbMPDfvYXGjG5kjtpt n9hjltjiOlNjVMVf JLn3GKq4FDOahPeyIaJm UGG7FiW2XGQ4sHAdkV1o jCsfxujuvR4tSxc+TVJO OjwvdGQ+PHRkIHN0 qThiJYrmLKCetD3dDVHa Z1z5ZkXwSqI6RZrzH5Tr pyY8KEJsrVGiJUGhnUVZ dU7lszrac8bvyuja UeXuFQNpCAr4OAg3VIIn cRdtLnVfOKI8McX6RRZ7 dKUqmQ1bmBzjwfkjxC8l Oyc+SDQ0UXS6NE01 GL88Q5GfPywafCKouWL+ PHRhYmxlIHdpZHRoPScx PPIaCzHlnYoqUP3hLv9q ZGVyLWNvbGxhcHNl OiB (more content not included)... [facility] Provider [place] 08-29-2021 Provider Orders [id number] #1.00OTGTIFF [facility] Rad - MRI Reporton Rad - MRI Report [id number] #1.00OTGTIFF [facility] MRA Head w/o Contraston 08-10 MRA Head w/o Contrast MRA HEAD WITHOUT CONTRAST; 08/27/2021 2:19 PM EDT Clinical History:LOSS OF BALANCE Comparison: None available . Sequences: Axially acquired 3-D gradient echo series for the purposes of dwwq-ht-cdkafx MRA. From this data set multiple volumetric [...] Deshpande MD 08/28/21 7:28 am Technologist: [facility] MRI Brain w/o Contraston MRI Brain [...] Deshpande MD 08/27/21 2:50 pm Technologist: [facility] MRI Spine Cervical w/o Contr indu [...] Deshpande MD 08/28/21 7:38 am Technologist: [facility] Physical Therapy Noteon 07-12 Physical Therapy Note [id number] #1.00OTGTIFF [facility] Provider [place] 07-31-2021 Provider Orders [id number] #1.00OTGTIFF [facility] Provider [place] 06-29-2021 Provider Orders [id number] #1.00OTGTIFF [facility] Coding Summaryon 2021 Coding Summary HTMLBase 64 QsxcdtikYKy6wKa+PGhl YWQ+SF0GLTUeB68urKDn vK4UY6bBJI6LCVAVVVUJ VJ5RMZ3vdTH2YJlbF8Ga biAv GotetCCyWR44UZj8UMO6 aXcqWGfcxB8mzAZeA3p8 CkKeAO06nV41GKtqGPCh PqZ1RnIkigrryEYn S1ztQbMuyXRcVrt+PHRh YmxlIHdpZHRoPScxMDAl KnCioWfwRX3fXl7yVKKe LWNvbGxhcHNlOiBj l8ehDBBgVDobWQ6suTjj C7UmuZJ5DZLlc3i6Mo58 dHI+UCAwPZW0jBkaWGeg b980EfZas1seJUX2 kLFlYCsoPAZ6G13io5R5 VRRoUHTjPHL1oPG0cH9n iGnjbcpgO2TjjPEnVgT3 WDY3tWViaT4tqQkm lapnnZ4iPyo+N49QFE1B HGWGZG9OKko0D2OiPdjr dHI+GO14TPOxEN65gJZs nZFmv9hmwQz8RqFw ENYqRXP3zTiyYWvbw1Lv USKvI33uiAMjp2U5IGSu wFhscFKvOtAalUG4hN6f JZhmpnrgi8nzegnh Kiyno8jkde99fU41Y72y CEwvEGVpMDP7ABNqMNEa hPuaqd6rnI0tRz8+IDxj b0kdt8thtMn8RtCa PYRidqCpxCvqUSE1k5Tu Wv94O0AqtZvxm5LtBig4 ig28zFJcd0G2pOV2SIsv PDKdmR9bHMsaUbO7 DISiAaMaaO74jGOxFNcn Bs0abCsebOjdOU1yDNLb fprkIYPlpJ0mOHGvhQBy zLsyXF7aJDHhvpvy c563DyFwZPI6QFAuuIMz J2UqwN0dPwCaEYZsYTJb K5QipWIvTJajY847WCro YkI0NOPwnuXbY8Zk DMGsrXzoEcL0z1L7Lz5W c1MqkupeTMM9ZPvaJKA7 ZpB0UfXoIvH6S5OpQri5 YAHecClpSM0nW1Gy OAHvykfxitninUE0UTRy DFKmuV47gCSmVExuEu8o y6B6n815KVUxJJVldI98 Ec2vcMmdXNGjeZRS dT0bnseto0nvakgeBgKh PFXsKCr7NLr7SRMcdLlb GtHyCOW8ApB6HFL9aYDf bH3gyPfnywjsaJ9f Oyc+S72thW5tJKW5QAE9 qrfiHVOalyRdLV65US36 G1MsKopqqXShkFN+PGRp idJzmJxbJO1uVlOt a4mwa0EjNVqpT5JqTDWr ADdaBlf5WEEcRRR2mEA6 nP2nWUJwGHaom9G3mAC5 V6JrjrHiim7wg1pe GJVbOVvhJ65soROoq8Z4 BAEjlNU1KJPedNrzKsWh kU68Nnc+JGVtiTyed8Io Ftykk3wqc0mwoEc7 IjMwJSIgdmFsaWduPSJ0 l6NvNf99T30qKPxaPUZz XYTaLHQvQGDwmNzvdk1j yA4yIj9+PGNvbCB3 tPK9gV9pDJAlFaC5PGdm I099RhTfyQGxVfdya2sc m2ldyZx4QhBuYAJjbaQt zXtjEEB3a0GjZr49 Z61rZTrhMTXqTTZtRCGx EHOjrDhmgg9xdV4nOe9+ HD4fa4efxt68oD29xVI+ UAUyQNP0zJktCEuf OIVxkU6nDIuqSbS7OUBa HhKbkP95aTQaWUewDv2z nIclqArmMA1cJAIbmwas n150XbIqg6sfQVLd bOEsCQscOUT4X13uj2G1 YXNsRGMgOWF4dCE8hZ4i bGlnbjogbGVmdDsgdmVy gKwgTWubPRehG875 IHRvcDsnPlBhdGllbnQg UmCtBZn0Z2AnZuu9PCFu oSiyRB8pkDYuQOhgPr1v sFamkNlbIX5pAPMc ywhib458QdUcw4fsIMEb mOThDRsrXEL5V86lf0T5 IFCfSMWwPMQ5hDV8sX4g bGlnbjogbGVmdDsg uaBpzFbhABgkPNsjW016 IHRvcDsnPkJpcnRoIERh vFN0CU85IX26oEAxl7M2 mNT0W2IsQAQrvbzu xubuiLA9NQRvVTRuxS60 By7maOxoQn2lWQVkOQZ1 IIRyzXDaE7RruA3dLaVc TSPpMTGpJ7TcwCFv TUpiV618GEsiZoS7VXMd tuKhJ9WzATVrtMcdWlF4 m9C9Rg0IK7N0HD42LB27 hVPca9L1nRX5S0Nv HESgtkfbhikxgBZ1EQQx KKRmkG12Mz7ovIucAz3v YWFkZAJ1AUPvnERpS3Uh mT0xEiOzJTZlAQAe R3YdhKXvVNjwV572QQvh SnA9NXMtfsZzD7PfBMVv kDytCzF0k4Y8Lv5XWPd0 IN20DF85oWHlk7Y5 pKK4L2GkMPKerxqrjqhj oUL8INQoAOMycP07Ok0n uPmeUq8dGMXiKWH4TVNi mJIaK6ZzxM6fWtRh LRQvANAfL9YxeEBdOIat P737GMebKbB4GBRzmrWs X9XkOAPnhMyaWrC4h1M4 Dh4ISQBkSA16WRC6 eZX4NX39TO00F7PhFjoi dGFibGU+PHRhYmxlIHdp ZHRoPScxMDAlJyBzdHls MM9lJg6eOOOiHDBd iHcfxHNxLpNio6ulATEl AMugKJ4jyKdhE2AwmYZ1 VODnm3x9Nx28U03uQ2Hx dXA+IKPxgRZ5lQI0 oD1uBgGyXkI0JHitU324 YkFvtQLfFcdgz5vcu7yk mQu7BqL0FELxttUgqNbn HYB4p3BeSr02J53q IHdpZHRoPSIxNSUiIHZh qPwfni8ewN7jQp1+PGNv wSR0nYT5dY4uTbUbCsO3 CFofK407QnEbzCFh Qglrk3gsr0pkePk7TvSp MJEusyUrsOwdEDE8h2Kg Sx62Z1FguRfup9DcDdv9 wa96tVOhr9X3cVK3 E6VlLIKlymsrpDJpqXwj WX9vXRIdskplOQUrzP2d NCUcA0l9CcYlUbS4AIon J7VairB8EXGqlDTm UKigCXZ5V30wp8U4IWHy NRKkGGZ2hVV0lP1kcGie bjogbGVmdDsgdmVydGlj IHyxGXylQ630TNMl yRlxEMNklH4zQNPboZLz xPnuSV1zLRPbqafpUnAF N5IRV33ALEPFE9LTSvLs VMvJAX43J8WzDpx4 HPUvgEfkEZ2nmXYoMCmz Pv2tvRuhkSekOC3zKRQc vfjjFTEoxY7eNLPaoXEi jVkgPG1uHSLiptkr v766UxOxPBE3BTIyuYAs I0VfwI0rVsWhXNGoRVGz H9EhiDEwAZolS990BCxg UfE9MQAopmEvS4Ma GNEdoNubUuB6j4Z7Nm2v CN4gRn8rNNB5DP76SG08 kOMae0M9oZE5C3PaLTWc jbpnxfyarEY4SJNb JLVgwC25hQFzDHfiMb6i w4K9m856TNMjAXTskD85 Fk9dhSwpOBKvlCQVmC6q bnxss7gwmdikUfFg EJLlQXq8JJv4MKYpjKxm WkFpFBF8TvJ4ZPY1yBZn kI0tfPhrlwzriW1yYcv+ PVGtCAAckgA0Z0Cs Ruy6NLIdmOwdZO8upEGq YGluQm2kxEgrjSffLF2m YUFhdnriCLXdaN2uVZMy aYKcnWdnZL0bLIUy bbltg056XwUzKLX9WWVr cDQmA5NggA6yElLdLKBu YGFkH6IwqFCjPZzrE622 OBkpKwS2RXDpnnXk C4FgYFRzmCheCmJ7a8S0 Nu4QDDyGET06ST87oDDg y0R2yOW5K4IaCCOsindu vavvnXT9CHVuZNGm fD82yYNuUYefVd9tt1P8 u611OTDdDMTasP28Zd3z iNudJNOoqRUAtQ9eyfro x1lxbckhNbOkSGFp DYy2KWm8VAJdsPfsCcWj DZU1UwR9RSU3dFEktK3k bYsfapfduS0mUav+T1A8 K0PdQuiosTZ+PC90 RCStIA41bSIqhTHqe6va aRm8OsMmBUFqJUI9cYss DTpvz5FeCFLsF31zdXIs w8K5XXSyvVhyaOWn WtKpaMG1dD2eDEvlnsni d7qsnyzuSvzqu9cbwr19 hR59B84aKRzoCEOzKDSk QYLaRAXfyDwwlh1r mS6xNk9+OHVlsQJ6iVA3 xL6lPeZfLhU3XOuqX372 JrDueGEiSpmmf9jlj5my qFy9RfFsODHhahGe hVxcSCP9c0MpDi83X98w IHdpZHRoPSIyMCUiIHZh nNomys9hqN1pIs4+PC9j n2dpbe53kL32qMV+ NSCiTGW3rZqnEOrdBOLh yM0hLSubVpW0NQWxVdUt zH09qTDzUMbsDk4yvOfq vHjkIA9hBFLtdloz v433BlGoo6syAZZkvFVd HDmxMIS5J57uk0E2QALf BNAxEZX8wVG9cV4sbOgv bjogbGVmdDsgdmVy nJpoIYzqXQyeW364NBWe vSrkQvJrhBYiB1rbfcCM HL2bMtasdZK+PHRkIHN0 cRzhZVvyRXHqnQ8b DLGvE2q3AqIqKoL8CAee O5QlyoM3OEQunMLgQFHx qAQHmK7mrsmjq4ejzemu OqGaSATfSXm8LAf9 DMQrrLktCyZxKMU3OqQ2 PPQ7bPRmoL5usUrxrtwc uY7fFcu+RklOOjwvdGQ+ KSVrCIY6uPzxRGtq YBGrxI9mEBTzU3s4GrSm XlO9HTxtI0SgnaF8BGJw dGUqJAYwmBZClY2jxruu b2kmaffiFzIjHZSe MTr2MLn0IEFefYuzYuTp DNZ5VpZ8VLI1pOViuI9f zQpimhheaV3aBty+TVJO OjwvdGQ+PHRkIHN0 mOglCJxaOJKcsM8uAWHf M2v1JrDjCjP7BSyrF7Ru yrB8WPKgzCEhXSHzqSKF mR1cmguxb6eaapds DcOeTDEcSXt1OSv9JPBb gPanGuMtZHZ8UdM1CIR9 rTYtsD9saDijhjiggN2m Oyc+GMD0VKE5NN97 TM44Z4JxBjomaHIooWU+ PHRhYmxlIHdpZHRoPScx WVQfIvFutVjdML4qVt8e ZGVyLWNvbGxhcHNl OiB (more content not included)... Normal [facility] Provider Orderson 06-25-2021 Provider Orders [id number] #[id number] Normal [facility] .Auto Diff 106-22-2021 Auto Todd % 10 % Normal 11-21 [facility] Comment on above: Performed By: #### 1 [id number], [id number], [id number] ####[facility] (DEFAULT)[address] [place] [address] Baso Abs# 0.2 x10 Normal 0.0-0.2 [facility] Comment on above: Performed By: #### 1 [id number], [id number], [id number] ####[facility] (DEFAULT)[address] [place] [address] Basophils/100 WBC (Bld) 1.9 % Normal 0.2-2.0 [facility] Comment on above: Performed By: #### 1 [id number], [id number], [id number] ####[facility] (DEFAULT)[address] [place] [address] Eos Abs# 0.4 x10 Normal 0.0-0.4 [facility] Comment on above: Performed By: #### 1 [id number], [id number], [id number] ####[facility] (DEFAULT)[address] [place] [address] Eosinophils/100 WBC (Bld) 4.7 % High 0.9-4.0 [facility] Comment on above: Performed By: #### 1 [id number], [id number], [id number] ####[facility] (DEFAULT)[address] [place], [place] [id number] Lymph Abs# 2.9 x10 Normal 1.3-2.9 [facility] Comment on above: Performed By: #### 1 [id number], [id number], [id number] ####[facility] (DEFAULT)[address] [place] [address] Lymphocytes/100 WBC (Bld) 33 % Normal 14-48 [facility] Comment on above: Performed By: #### 1 [id number], [id number], [id number] ####[facility] (DEFAULT)[address] [place] [address] Todd Abs# 0.9 x10 High 0.0-0.8 [facility] Comment on above: Performed By: #### 1 [id number], [id number], [id number] ####[facility] (DEFAULT)[address] [place] [address] Neut Abs# 4.6 x10 Normal 1.5-9.2 [facility] Comment on above: Performed By: #### 1 [id number], [id number], [id number] ####[facility] (DEFAULT)[address] [place] [address] Neutrophils/100 WBC (Bld) 50 % Normal 44-88 [facility] Comment on above: Performed By: #### 1 [id number], [id number], [id number] ####[facility] (DEFAULT)[address] [place] [address] CBC w/ Auto Diffon Erythrocyte distribution width (RBC) [Ratio] 13.2 % Normal 11.5-15.0 [facility] Comment on above: Performed By: #### 1 [id number], [id number], [id number] ####[facility] (DEFAULT)[address] [place] [address] Hematocrit (Bld) [Volume fraction] 45.3 % Normal 34.8-51.9 [facility] Comment on above: Performed By: #### 1 [id number], [id number], [id number] ####[facility] (DEFAULT)[address] [place] [address] Hemoglobin (Bld) [Mass/Vol] 14.9 g/dL Normal 11.8-17.7 [facility] Comment on above: Performed By: #### 1 [id number], [id number], [id number] ####[facility] (DEFAULT)[address] [place] [address] Instr WBC 9.0 x10 Invalid Interpretation Code [facility] Comment on above: Performed By: #### 1 [id number], [id number], [id number] ####[facility] (DEFAULT)[address] [place] [address] Man Diff? Auto Normal [facility] Comment on above: Performed By: #### 1 [id number], [id number], [id number] ####[facility] (DEFAULT)[address] [place] [address] MCH (RBC) [Entitic mass] 31 pg Normal 24-34 [facility] Comment on above: Performed By: #### 1 [id number], 5716079, [id number] ####[facility] (DEFAULT)[address] [place] [address] MCHC (RBC) [Mass/Vol] 33 g/dL Normal 26-37 [facility] Comment on above: Performed By: #### 1 [id number], 0405654, [id number] ####[facility] (DEFAULT)[address] [place] [address] MCV (RBC) [Entitic vol] 95 fL Normal 81-100 [facility] Comment on above: Performed By: #### 1 [id number], 4053659, [id number] ####[facility] (DEFAULT)[address] [place] [address] Platelet 295 x10 Normal 138-427 [facility] Comment on above: Performed By: #### 1 [id number], 6402896, [id number] ####[facility] (DEFAULT)[address] [place] [address] Platelet mean volume (Bld) [Entitic vol] 9.1 fL Normal 6.3-10.2 [facility] Comment on above: Performed By: #### 1 [id number], [id number], [id number] ####[facility] (DEFAULT)[address] [place] [address] RBC 4.78 x10 Normal 3.70-5.30 [facility] Comment on above: Performed By: #### 1 [id number], 2595754, [id number] ####[facility] (DEFAULT)[address] [place] [address] WBC 9.0 x10 Normal 3.5-10.5 [facility] Comment on above: Performed By: #### 1 [id number], 3704687, [id number] ####[facility] (DEFAULT)[address] [place] [address]352 TSH w/ Reflex to FT4on 06-22 TSH Qn 2.41 m[IU]/L Normal 0.45-5.33 [facility] Comment on above: Result Comment: Gene ral Population (males and non- females, aged 21-88) 0.45 - 5.33 Females, 1st Trimester 0.05 - 3.70 Females, 2nd Trimester 0.31 - 4.35 Females, 3rd Trimester 0.41 - 5.18 Performed By: #### 1 [id number], [id number], [id number] ####[facility] (DEFAULT)[address] [place] [address] US Carotid Duplex Bilateralo n 06-22-2021 US Carotid Duplex Bilateral DUPLEX ULTRASOUND EXAMINATION OF THE CAROTID ARTERIES. COMPARISON: None. HISTORY / INDICATIONS: Evaluate for carotid stenosis TECHNIQUE: Bilateral common carotid arteries, extracranial internal and external carotid arteries are evaluated with hogan-scale imaging, color Doppler, and spectral analysis according to a standard protocol. ICA-CCA ratios are calculated with inside technical sales representative peak-systolic velocities and recorded. Vertebral [...] Jules Tilley 06/22/21 2:18 pm Technologist: DIANE [facility] XR Chest 2 Viewson XR Chest [...] MD 06/22/21 3:55 pm Technologist: SE KATHY [facility] Coding Summaryon 05-23-2021 Coding Summary HTMLBase 64 PxjmfamyLQj2hZn+PGhl YWQ+VQ2TZTVcX78rgJJq rU5PX0bIUQ6TUKYDMTDI OQ0MLT1gtJI7JEniQ8Fy biAv AtarkWPlVT22PYi5YCO3 eYntPGdjqV8deCLoE0g1 StLrDS96eC49CMdfTRTb IaB2WhYtgzbceTBe V9nzWsQaeKGrYxf+PHRh YmxlIHdpZHRoPScxMDAl KfNipPksTW3zPg2yWEIi LWNvbGxhcHNlOiBj f4hpEPDxMFidDH9wcFyw R8SnyZL5BRKsq4m2Tk04 dHI+BUCrESG6hLpyXScg o214RjWsr0tbVDO7 qRMbQOawNXO1P98na6W9 NOFjPIMyIHU5gOZ0eP9g fWhwutcmE4NfmWBiLeM4 CUZ5gZIytA9sbTgd jsvawY0aCqw+Z58WWJ3E NNSRRX2SYxr2V0QwFgsp dHI+SO45CNJfAY58lRVj sDUtb7ukgKy6FoDt RPGiMLW6rOikZXvpu8Nb AXFfA64hvHYpd5S3AUPk xXtrwOPuDkUwdUM6cK9k MMaoydjfh5zvgien Llqdi3xqeu04dK58Y55t POaxOIBiWXL5VGNxZWUi nIppaq2vhE1yTl1+IDxj q5kya3yyzNc3DmSs VAWbhhGlzMecCBU3z4Cs Tl22G0HccStyd0OtPxl3 zx44aBKhi9I8lKK9SKub CAOhyW7mASkzKaA3 CJJsLnVjtS41dJJrOZkc Bo0xxUobdHdwSN1uZMIl wjjjCDOzgY9xZMBvsQLb jUsoIN8xYRCivoii r281CfGhAOH1TCKbdKPd B8SufS9yWaIdHXRfJFQd S7OnkWElIAxtK394ATni AiZ9MHNgsjGiP6Mj QOJeyIwlHbI0j5T9Sx9R j4CfvqifXPU0VEjfZEV2 MuS0KbCgEnJ4N6ReDdk6 AYWyfBylDI2sN1Zt PFPbbfustyhtrDU1OIOe MHJqfD76dXOlBCdhPf6u o1Y9t683MWQoLAPmiQ86 Yf6nwGbwXFOvoZGR bW9edntoy7ijlievGoAd KIUjSYw6VKx0GXHgsFou ZuFrPRE8GbV1TNA1zBNj sI9ixLcvodpapK4r Oyc+R81szK0kFCQ6ZXT5 rdobRHKinsEzMI60NM15 R4MvOcrdbRQmzJK+PGRp diVscTgvBW2zVjJh m0cha7YcRJroX2SeLEWm OBuxSqx2MPJrJOS8aDH8 iF0cUSDoYTfjr2G0iMU6 H9FqniIowa3us5gx KCZcCTvfB64sbYPne8E5 IRLihOI9ZPMryIkmBpDh bK75Snw+GYEqtLrcu7Nc Cduej4kch1ybwDb0 IjMwJSIgdmFsaWduPSJ0 e7QwVc48U07sYNikSPEn GVYaWIEvLEZboUfuvb5q xL2wIa4+PGNvbCB3 oUU0xB9yLTNeNjV4UGxe R319SyVkkGCuPvntj0qd r1ghkTb8BzDpPOHnsmZh vWmdVYS1w8AbJl29 D93xBQenOWScODGoGLHu JIVkdLpbpz7wmM9yBl7+ ZM0mp7oiau50sK69kPW+ KZWdCBV4yMzzKAhw LKPumW7mHUqtCsY3RPCa DwErzR78jNWnCSanBb2m xKbfvDthEM1jWADgavxm q482PyIrn6uiVMIp uKCeJMrtIVO0X77cn0Q0 EPMsIIQoDTQ1wZZ2gX8s bGlnbjogbGVmdDsgdmVy fYabUTaeXHlvA487 IHRvcDsnPlBhdGllbnQg OtTjVRy3C7QgJaj3FPWu gMleOW0fjMNhTOwbUm2e xImvnYssQU1jASPj ffyhl308JoJpz8iqCLFu uLWuUDncARI4L13rb9Q0 VBXlPEEvZSV6jZV3rI2l bGlnbjogbGVmdDsg dwDqnVssPFeyDBwnS409 IHRvcDsnPkJpcnRoIERh kKQ5ZU79PM78mARsn2C9 vFR0F6WrSCDqmkba noeunVQ4LGXhTEOrbE73 Ld7tvMcqHe2kFDYxSPL6 MRBqcHYpM9CnlD0jDmGz CESqDAUaW2GywMHg HJbrW133JMmnKbT6RIPy trIdV9ZrSBBxrBewEkJ0 w4A1Ed4VV0X0QN16PM51 dXTuy3Z8sUV9N0Rv TFRtznsuuxopsVA8XCXr EVAuuP21Mf4dkQbnCt3g IEHoAOE6KHArgFUlR9Ur oS8wXxOmJLMhCLYy E4IlbZFfHWfxG081XRvn AcU7NJOygqRcW6TlYUXb dXtrWwC7y5C1Xy8EMGe0 PP10JH28wWRxd9I5 cSA0N4OoGEHzwwsvurkv zGN6GATnTGOrzV18Qb0k rBfzAr2wKMWiWAH2THDq iKWeJ2SysS2kLwUx LMNlCGCxO4OdlIFmRHxn O859YLjaYfS8VBJmsdFd B5YyQYPikWgdTtD9h3C8 Hi0YPBEyXK13QEX4 gQF3CG95VU98N1BjPhim dGFibGU+PHRhYmxlIHdp ZHRoPScxMDAlJyBzdHls FB6aUg2ePCTrUKJb fCiywSIzDxIss4jkUTJa GGjhSD3vuTspR8RcyQT0 ZVMfm9h3Zm27S60oI3Yu dXA+BAZfdCF6jIA0 qK0oWeHjJlJ0EXtjM301 CaFajJGkMktic9jxp5fy kUv4TpZ1WYOgycBweHch OYC9p1VzSq41W45w IHdpZHRoPSIxNSUiIHZh jWmdsw2njR7kMn9+PGNv oQN8mEI5fW5fIcZnPdF3 FKkrY175ObDhdQTb Egqtj1zva2jjkDv6XrXa LJWlzxKseZqzXGW3h8Xp Mn69N0UbmGadj7DpZpf7 ll81eMVhm5A6dLA4 F8RjIACkqngpqKOpmYqq MU6dPALbvjdwWVNkqZ0e WCVtX5h3ZzSbAdR1CKim L9QvgaD7HNOrtVXh AGauWUR4R12eo1Z9SGDq SYRoPXJ7wLD7bC9ecUiu bjogbGVmdDsgdmVydGlj UEbqEPblV555MZQc eOgcFSJtmX3tSTDitALw wDwxON6gLLPkbszlDkIZ K1QMT53AIXXAF3PLLuTh DJsPAU41R5TrLqq2 EQMpxLfmFD4xcGNxMXew Ob5pwBosmIxfVW2sYXAx pvqoGLQjfK5hWHRgrQAw aHjuOB7vPABrxxhv k206LyRqZTX5TYSyhIPd X6XtcQ9xFgPtBMIqEYQu D7IecZJzAOkzC877LDbx HjB2HYZxonCqK4Eu PWPrnXtiZqJ4d7W8Kv5f IX5lTm3wVBH7PR16XU45 pUKlt2M1yQV1K9DsSIId invukccrbGB9RORc MFRasF89iBOdIAjsBs4h c8E7a766OSIbDOQatF58 We9lxLtyBTPczFFGeY6g qmjyl1egbhvwBeUd FOUwEXx4MDz7MORdpMob JjRmLIM9NtV0PSO0mVLx vY6lwGktiifhdN9eUch+ HFZrEXHnssF3M6Pt Dxu9LPCxiJsxKP8bnBLs TUcmSq3qnNovpQycKV5h XEHnyevtYSYxgW6nNUFx vINwbDojQF0bBHUo psdco879YfViSIB6KVLo qDFsF9TxzL2dHvHuXFSd ASVwK0DhlWXeJZbgI461 HWomRaY2QWWvdbJq O4OiFKKvpFfiRuB8h0E6 Sq1CDQlTPN59DE61iOJw j7A2oNP6Q2HsSADlzcrg slssbKE0HGHfNSXf yC94aPWaBHdhLs0ab6D2 f073KOShMWHduP44Iw8l mEmnJLZcpNOHnM6qdsdt m8cvhxjxTbXqPEGy QNr8OIq2OUSdnTypNuDw XFD3BmM1UBF7gTBnzB8f eFhhfqlcxR2gFtb+UmVj dUDwbH9dSX46fMUi yIlxclL9I3GyRflxsEH+ KO17ECHzHQ11tLJpeSNt y4vimZm4BnYcFYNvEYC4 sWbeGOdwm8LdNKYt M25fxCYom1M4YSBlaPes yAZyHnCpgCV6hQ4hEDjq ehaus1lpbendZnoiq6bn qf25eO66V77xBIwr ZHRoPSIzMCUiIHZhbGln kb8feY4hBm8+PGNvbCB3 tSN3lD8sKdQfUoY6UFpd N843DaAidMGcFveo n6qvj5fonAl8AgBbKVDx ugIbjAloQUS6e0VsUv99 B22hIBduTCDnHCEmUDSh PRUdqHdzft7qnB1o Ii8+NG3ms4znhi59aG65 dHI+QSMmMOY7iEwsQXcg JDLcqR7fCIrsDiQ9YTJw MiOilN84hNLsOIzl Np2hxElwcSimVK4vDQOv pbgfj290VtEkc2dbKOSp nAOnWUilGNO0T46qm7G5 AHAwNHHbZPG5cGX6 xB1apMltkmewoHOltFsq qeOfvNygYPihOUlpG021 ARHzwCioFaKxgHYdA4rh uaILOP9tAlxpnTW+ ISEwLCQ9kPugSQhtAZFf gR2mNCIzM4o7DqFdOiJ0 KAwmO7HtlgP9JSAouZXf KIBhaBGKlA5dleen j4mpcgtyMnKdUIMuYKf7 BZo8PVBswBqzKkNhPMV2 PxF3BEA0tCVvnT4ahFng putkjD8wQoy+RklO OjwvdGQ+HNBnAOF1yDws DNkcFRAhzL7bJZIuK9c3 JsRdLzY5RHypY8LcdsW9 IGJvbGQgMTBwdCBU xM3nsrdgw5eemxsuNeEw KQQnNTe8XVp7RQVakBhk WnJrMGJ4NpO8VUV1gPZb sU6euWtzdpnuiH4g Oyc+TVJOOjwvdGQ+PHRk UNM1oArzFAhqXPRsqB8w LXBoY2e9BbCePtV3DTks M5KucfR5CQYjfNOs ROQuiJDAwA0rezied1cn hdgqSkUaYUOgOEl5NSj7 GJElwOgpXhTkKCU5KdO8 SXP8yTZliA6wbZil nogylL1sSsa+TBX4WSK2 CW67EK86Y6BoCkcbtUSm bGU+PHRhYmxlIHdpZHRo PScxMDAlJyBzdHls ZT0 (more content not included)... [facility] Provider Orderson 05-17-2021 Provider Orders [id number] [facility]on 04-27-2021 Coding Summary HTMLBase 64 SlfabgxcQBf6uLs+PGhl YWQ+MD0LKFYvF21pjIZm xA0BT9fAIG3WKCOANNTY SD2KOS3ztIH7SHsuT4Ut biAv LzahhPXnLZ74VJk6HXK9 aGspMMwwkD3zdJWyR8z8 IlTfNQ86jG31TIgyDAAu FoD6WsBevovmmWLj O0gjLzPuvMBzRqd+PHRh YmxlIHdpZHRoPScxMDAl NvLkjOhbLN8pZc8oWRXp LWNvbGxhcHNlOiBj s8vgKOSyTAciGF1qfVwc T2RchMD9QRYxx0v8Ue40 dHI+HBFwDKC7uNmlRNpr r186ClNsa3ptCWU9 zTQsJQqaMGY9I39wb9L8 JZNhUAWeXAC3wNX7yL0l gAafsicsX6FrjTEyNdG8 ALZ5nCOevV1fySwx qgpypT5cVps+C71PHH3T CXTLJI8XWue1J4PcMqop dHI+BV12VMAyLQ86oSUe oZSga6vusEn3SlWe WZBrOWM6iHgzQWbqe4Pr HANaV62yaAHww9A7GUYp tXyjvBDzRzLqyQK1dC2c PWwjfcusu9xdzlvi Grjfz6evpq81hP22V57t MQoeJWDuXPP5BJLdCYDs eSvasm6tdF2oSo1+IDxj i2agk4tbsXb2SbLy OTDamcGbzVuuLIB8p8Yb Sn26T6InqEjnp6XmDgq5 gt78yNJkr4M4jIG6WFnr RSPnkF4wHJdnZjN0 GGWnIsXujP91tWTdIOkg Va0hcUnqvXqlIF6lQYEm ajgsKSMnbL0uPDHfkPTx xFhzWF7mOVAfxgty t854MhPdOOK0ETVilCAj E0AhaJ9oDmTvLDXnRYUz N1OtpGXvZDdpN980DNng YiI9LMYdbcRiU1Sf TXIeeXsjNkN2m6S3Cb6W q5EhaeyhGXD4BMcvYQN2 IkY0QkNoKtM6J0QrNzc0 YYRyuVkdMM9pL6Yx TIOvfkzdqoooeCF5IJPd IJVglE26cACpVZcqKm7x r0V3l956LWXrKENjiM81 Tu6zxKmqETLefSPO xF2cpdwlh9knjanvRxKz LVDvSHa5RSn9LVMsjQru QgCdNMK6RiY2XNM4gJXg bP7wvXnqmgzieJ0e Oyc+C79nnQ1nRKX8VHZ1 ewgxTCYwqeImPF18LI35 O4VwLqohwUJnoRC+PGRp ocUnoUbeEH5pAqZt l1zda3ZwGYrsD2FqSDEm OXmqGfi2GKJlTQI2pMJ0 eK2sHFXaYVbnh8O8uNI2 P4AuowQrfm6zf1ih YSKnQFqeG54tcDMir5L1 IAZzmYT4TOVfmMppYeCt mI85Nox+DZIcrXwov7Wb Ljgyi3vfa2rfqHy4 IjMwJSIgdmFsaWduPSJ0 q1UbLx25B62qSBtvZBHr TEWyQADeKMGjlAgdht9p hS6iMl4+PGNvbCB3 nPV8kU5tPEUySwH0ORqb P927MbKujIJhNdzjd3do i0fgsZr4OrEoMBWtggUm fMpqFTG8f6VlLw53 P09xIYrsPTTmOIWzXYKm ONCbaCshts6loP4wMr7+ TA9ll1rxky26mN54lQX+ ADSbTDA4jGbzWJnr WSNhpC3oVXvqFuJ9MZPp OtVtnJ88yCUjXTbnVb5y uSlvxXhmWL5nNVUgbrys k826NtNdy6roXZKd aDIzDSxpRGY0C37lq5Q4 LVUyOCOoCKA4sTH4bY0n bGlnbjogbGVmdDsgdmVy gKwiBIngGOtbU176 IHRvcDsnPlBhdGllbnQg CeVbESv5C2VhRdk0WOKk kUkvCA3rvBFzHYmsWg4g nGlsxLqfDJ0xZJRo dfmvu781LrTlc5dbEOBy iPNrYWqbTWK1V02yf0E8 FKGiMDVeYHI7pNE6vC5i bGlnbjogbGVmdDsg mtQnvFbrUIyiGAhyC460 IHRvcDsnPkJpcnRoIERh sSF7UB87RJ90xHDhc7P6 tSK0K7HsQUVcndzq smlobEY2UMHyVFMheS64 Zt4ikZqrJm8rNPNgBXB2 KCJluESeM2PjyD4tToTs JTIySYWsR6OlzCIx MIgnN993IYmqFzY2CBIs qpQbL2CoXSEuqVayArU3 x7H3Wd9ZP9V0FQ01VN20 zJIsx8S4oUI4U4Kt MMJjpporzbfjuFA6PUDc CBMebO21Xd3ncCtuDt2u RRKwCVC4VPYxhWVaH3Wk kL8dHaZsDEUjHGDe D2UdgUXoGGxjT671IRzw TjE6XKHtkrQdY3AoZSAh iThzQxX8k8O3Ey3LIAc9 PZ29TQ61oTVrn4S9 mBS7G3YkNETmdtzshhxm aIP6TMTfQBAtbO35Xy2l mJznIa9fORAzYZI4HOMy oWAnO3CokU8lItMh RJBxKUJwH5DbkSSwAKik H222OMaeFdJ2MSTsbvBa W5FyEEGnzXjjVfK9n8M4 Mv7HRMOaSR16MVC8 fOF8TD43KK75P0FaHjpl dGFibGU+PHRhYmxlIHdp ZHRoPScxMDAlJyBzdHls AO5zTk5wVELsZJAh dPvmdEGbLsBzz1zzWGTw EJxdDL6eoLvqE4PjxJJ1 SNBpy9l1Wv66S56fP5Qh dXA+RWQmbFX9qSI6 yC6uWsNxTpH6FFttC587 NrQpuXInJnexh9cox0fh jFy9AuM6YFLvffXyoEsq WDF0j3PuOx81U71h IHdpZHRoPSIxNSUiIHZh oSbcna9jgV2fZf8+PGNv tQB3yVJ0pI6eHlPgKjL6 VGlcT634KaBjaDAo Lwcfx0mvh9hedHt9KaVc VQFsosBqkCjeZHM8n1Ee Ix86J2PhqOmdl7ZhZba2 uk04tTOho9B3eUR9 A6GaULHtkvldwDXnzZxd BZ6cFXLsdaqfHDZtfO6j IBRvV7r5QsJpEkK6XZcr J3QcaeS6PHXkuHZf ZClwFLO0X65aw7H1GDWu YLPlGWR8bYN4qB8xeBki bjogbGVmdDsgdmVydGlj ZOsqCYrgU014RGSo fWmaIFOdlT5wHBSnlTUa nXzwBI0dKSUyhgerUuOG U4CHN58IUQQXL3CJBbUe NFsVWN78T0YkTzj4 AOCbnKnzHA5ioOHlKHxi Hh6cwAwhaBnnZC7dTLLk wqycXPVouT8nSDRhsGBp bAzeLI4uRHNmztyt c703VzKrZTL0OGUowZWr F8KarZ2jHyNsFXQeFXUb Y7KjlYGbILykJ055ZZzv ZrG2SVUcxqQmG9Ox DJTtfUvhZxT3e1I4Gh0h OW1rYw2oGGP8ID18RM29 fKHak0Y1rBH2T3DcHFHz zodilltsiIH9MVAl YFBcaX70lCZjBPhwGe3b e5U7u585PNPzBGVnnW21 Kn3hoHqhXGFoaCKDgB4c thbbx6bsocrlVlBr VYShSLy8FPc8QVQazLzi RpGcPGK4UfR8PYP5mQPx iY5ioThgjjlnrY7fZdw+ QKFlFXDpxrH7N5Cb Tai1TCYrvFhyOI5tlDPy XBguVp0qqMbfnXlaKW1t BPPcthboJUSxbX6eUMNz fXOmrMfjPF9cAHEu ljojq338LbClOYJ9EESc zAKiB7VyvE6fWzPbGOQt SZLyY1CrbJEjVIjaL884 LVtaNcU4KOWbvpNk S0UpEAVivHruWnX5r1K9 Vg7XHQoJLW03FT09qQZd j8V8iIO5F7DiVMQidjay xeicaTK0WXHoNNIg hZ24xBWeTLhzJa3fd8L0 m314MLLgIZNuqH83Gg5c rKnlVRCtzTPEzN5iwace f1nsodrzIpUzNRWl YYx3RSp6IAYgeDdiWyNg KBO9TbI1FDV5zGDkvP2b nMskmjlthM1bOho+T1A8 I7GnNtfskLF+PC90 VEYiAS94cTNkqKMmj6nn vXm8JkMrIKFfZBO8vNij IQeob7VoCUIpI72xeNOq j4A5WFGfyOpfpIWo GvBhfNE7wM8zGGwynsnq x3psfwdbEfdtv6msbs30 cY67T32qXRafIVEkGCZu DQVuAVBptEzlqv9s xV5iDz4+LAPhoIZ5cFW1 rJ4vIeTjCaB5PGdwW196 GcRowPHmClhle5pgf5qk cBr3VcLaCRCsduTp wGylUVT1j0XlHm15V74a IHdpZHRoPSIyMCUiIHZh lBuqbh8aqT2bAp3+PC9j g4eqna61aA92zHN+ QAXqQPZ3wAbjXXefVHMd tD4bIXerVfN7UVXfNkJk eO23dBRcEYtsNj0tgAmb pZwiEJ0iJQNiwemo a348UhRmn3qiKQUqaFFi REloHXY9H45ua4R6TTFa JUMuKCW4zDP2rM2pqXyo bjogbGVmdDsgdmVy dJpcHWjoMNqyK971MWHy vIszFsYlrTDdX8vkvbHH KE7kLqloiTT+PHRkIHN0 pGwpTBtuIHYbiN4q ETJbN6j0ZnFdZgN4NTqf N1KvpvF9OTNtmVPjWLHy bVAAnX9vwoqof4uroboz ZtIhAGWrQMs2ARt3 FVNrrVxsDqGwQEC9DjD7 PIZ9hNLunF6rzBuytsnx qF2mOad+RklOOjwvdGQ+ HHOlIPE9oFkoHToo IMNnhE8eBEEuA4r8VqFc BjS2EIpiH8VkekM9ZQIz xLNxGUAibPQCaL9gizou p8xjlbawFmArXBKc YPo9DYy7BHWmsEfiDoRu DYR9ObS9BAY2rRMzgP4q wOdqahgzjV4rEwc+TVJO OjwvdGQ+PHRkIHN0 xHkrFQbeYPQbqA6xPLPa L3p0CzGsWeL6WPkrI0Sh yfZ6UTLeqBUsQDDjiBFZ iE1bzzmko8ofzntj ByPrIPAaEKs4VLp9BVLl tRfpUmTpOOB7YvB7UHP4 dSCbcG4ikXifijysmJ0s Oyc+VXZ7UIF4QB58 AZ18J6YhKjqupTJgsMS+ PHRhYmxlIHdpZHRoPScx ELKvTfGknBzsQO5cSk8l ZGVyLWNvbGxhcHNl OiB (more content not included)... [facility] Coding Summaryon 04-06-2021 Coding Summary HTMLBase 64 XkyyucvjBMy3rQx+PGhl YWQ+NB3JESHtE26foAYt dZ1VT1yHNX7JMWKNBCAH HC0CPR6jbHR2SFbsE1Lp biAv HckwdFYaNR39JBw7YWB1 bWcgVGbmwX9hsKQsK1f9 FdTrAL86lM18AVqxAXMp HbY5FzYjihtscZKa R8mxXdHriSQeHvh+PHRh YmxlIHdpZHRoPScxMDAl AzIdvQqcIE2zBz8jXOUr LWNvbGxhcHNlOiBj y6xlCWAqQJcjLS5knFaq D1MzpTM9OXHcn1t4Ka53 dHI+WXPzODH7nCyeQJmf g940WuDjc1noOYH1 iWAiOHrjNIU1O36gr6K7 VNAkMAFjQYQ6zIV1lP5t uBzjjtndQ3LrtOCfTmF5 TSL8tRGxoY0boDru vmrhlF2zSxb+J76FGS8O MPWCLG6OWwa7P5SiMkqr dHI+QE94WAVaFU82gVTm qCVud7wdvTy1AmEa HQYuKSH4zSysDDbpe9Ao SHGnS99bmRQzw0H0ITVg qMruyPSlKcAekXQ4lY7a DMspzblan8ghqwto Bjref5rvza34oY38F91h WJziOJRtKWF2XLQbSPIl bFwygf6giB0yNr4+IDxj n3llu5nwsDp6SrGf MFQbimBznGbyGOY6n7Up Lj76N7UpvGvtk0QoVwl0 eb37pVZxl1U8eDN2RQrn EXGxmU7eGTibLaV6 SONiQpTpoY46tVPyCWza Kh3edTpggZqnAC0tPYVu yicjGQTlkR3tXSZqcWGg dTqpIB3rBMZvdygb z437YkOyGDY2RGYsuFJr A7YqvS0vGkHcHZAcMEQd D9ZnxYHuVHvjB420CRev FhM2FTVgtrBzM1Ol LEOfbJmkRoG8v9D9Vq6F k6XgsoapZQH7CCimLVI0 CtB8VfQkOgX4V9YuPmw5 TVNteNflBL1qS2Ux TCUpadwgvddqyNI3KBIq PYYwjE33zDCyEBeeZp4b n0R7v675CVBtMFEnnJ97 Th9whDipZXVfvIEX uS9cabruq2joxonqYhXd XPYvKMl1LVd6KQSwdMbp XeEqBCV7CiS7XAC9pGNy tD4plTvldgebxA1s Oyc+S18pgZ5qTET9CYL7 vbwgJMMaszMmJL43ZU08 R4PkEwsdjBQzhBG+PGRp ahMhgAsuZZ3uDnBx a2suf7IiWPuaS7YlHUXc NGvtFvn0QMMuXHR9cCU0 mY2bMXQjTVkfs9D2xCH2 L2TrehUdot0rr7kx THMlZVzrA08ndZJpd4B8 FJVxuPM1CZVlwLvuKiQw iU83Elt+IFGccXqun6Hm Epmcv3qcg5shqQf7 IjMwJSIgdmFsaWduPSJ0 g5OnQm64G48dKFjhJPSc FWItARXqMAPwcZggfe8i nZ5dYt6+PGNvbCB3 hOA0oT1bLWIxZyA0JAvd R231SzTqnXLgYiiwz7ux l8inoIv0AuDuULGdgtBv pEgeKJL6q4MnSi00 C65aFClnGAQuAGTfCXPc PYHstGbzcw2ljC8jCk5+ SV8rr1vyyx72iB85yHQ+ NBLpISA6kIplPNll TAIxhN3qGBkiCuE2VZAa OxUyqD67eUGoTZbjEb1o tUgbrOxsCQ9oLQBhprgb h665LmWmv0iiZDCc bXOgZPokTEZ8G27rp1W0 VDZoVCCtKDZ2nRQ5qZ5u bGlnbjogbGVmdDsgdmVy qJmiTKuvLIrpZ097 IHRvcDsnPlBhdGllbnQg UwSfLGj1K5VpKws7SAXv qJikHU6ttEDqKKelVk1a iIunpZlsVL3gQEYb qgemi062EdQon6eeXMYq eENdDZjdBCY6I99jh9G6 DYJxLNAbZUQ6pVI0lP6r bGlnbjogbGVmdDsg yxRzjTjzXNvaVGkhO397 IHRvcDsnPkJpcnRoIERh vDC8WC24LU60gWPug0N7 aZZ6Y3LiADNeidfr xpdlkLQ3GZUcOBYmjZ90 Al4mxFimNu5nJQYeCWY1 QSMbkFJaQ2NkrV0sKlNf PSCyYIRqJ0CbzRZh INtsB345NWjiRgZ5DTMw taPhQ5JlKZZxnFbhYlX8 v9W1Jw6OR0I8AR30LH42 xBJtb7R5jPQ6F3Vk WKZkuqeotddmkHP6HMBs JEVonA63Rc5lsHfhRn3g TPYsZEV2BYOwtZKjJ7Og aM1dKbRwEUXjCCBl I2PzuKUnFQvwP306IGef UwT0QYKqonUbP6RfEONi eIilVxE2j3E0Aw0MRHw8 TH74NH74aDPfh0N8 fWN2J2KpYEPfcsbnzqno wLP8PSKsERLepA70Qs1u kQshOm6fJBAmQKD7KKNx nOYiZ2DelS9zIpWo BMMwHMYtU3UbxRKqMWnp C163FIzaClA7MUZddtDx M2VdAKQhlClhQbP2j1H9 Jk9WPHGvRW00LBT6 bHK8TM14XN26N4XiOgxa dGFibGU+PHRhYmxlIHdp ZHRoPScxMDAlJyBzdHls WK0uYa8rCUPzKXOg vSppxTMaYiKdz7ulMUXe AThkBO7mhEeoO7HfqOL2 MMYin0s3Jp45W61oP8Yd dXA+RSTjjJO5wBZ0 oB8hXfQlLlL2KSvjR118 KhAokSPbAcwch5zfq7eg eZa0EcD2SUHxujBftWlc SDD7h4HyOy66L10s IHdpZHRoPSIxNSUiIHZh vIyebl3osT2mLq6+PGNv rNB5hEX5lH0pGrVuUuO3 NOilG555UqIwuJUi Ouqhr5mhz2yjjFg2CtZd EGGwpaEijPqsGDU7k1Op Ux65K9NhtPdow5ExWed4 qz94wXXfu6V8qOP6 L5FmYIRlivfsyFWdsTgz GL8rOLNyqphwMPYsyH1n TMCjE8y8OgOkQfZ8RTww V0GrqbB5VZQwiWCn MInyXIX2X84hu3C2ADPo GPIjZHY3gDA4pC9gdYrx bjogbGVmdDsgdmVydGlj YWviAGqeP105LIJg mSlmSMOvwJ5wRLJwmLFr bPsgMT8vBTGmyvwkMsUA G1ULT91EYWTRI1OEXpPa ADjSNV32Q7WhJmi7 WKBuzVyvUS0hdJXpMMgy Xm2luUwuuCatVQ7mIKMc bpkeEZJaaY5kAYVmsYGn jEqoNM9yGLTtvzkw p487ZiVaMMA9MTNffFUq E9WodZ7fXyVxCZRiUSTx C2JcdUIxTQnhQ728BYaa XqV8CHFsojDiL1Xe BLYuyCxpBbF9c8Y7Fv2r RM6iNd4xQRG9NU09IF43 xGVfm8L0tLZ4C4BqHIDc ktfncprrhCA3DIJb MZNeyZ38oIUsSSpzKb1a l2Z6h451WLQoFDVbrQ10 Kz4foOylMQBtlPTLgR9n zvgzu3pmkxnrYbRc EMXzFJu0ZEh2TRJgjHdb XfAlBBF3RxS0UDG6jEIq rK2ubHostudyyZ9kQdk+ DTKxISGtwfR4C9Ey Pyh3SQAdhWhvIG9xdNZu HYkzNl9qrKilnUdrXW8a HEIvpkvsIEBiaA3tTYSo uWQlbLweFN8vNPOq cakyu311BuEdKWA1IIEm kDXwB4DbmN6cUrBbDPBc WWHmS9CogZGcKBcpC219 NPayUtI2HESqqfVw V1YaODDstMeeXwS7n8W4 Uw7HVIcTPS23JB49kSAw l8P0eDZ7G0ObCMSlfhxk gqzmmRP7IPHmXJIo kD39fNZsQIstFn8ox0K5 y213FHGuWUIwgS62Vm3m fOjkZCOzgVNSaR7vuuor j5whjgwyVrFoXRRi KCw6KKt3GOXlgHbbIfAa CLH5XoA2UGB5iRNogF3b qDfbcugvtE5oTxh+RW1l vmmmgrB3AT98VG95 I5YlSwhucJUlgUC+PHRh YmxlIHdpZHRoPScxMDAl TjTnzKspKL6vTk6cHMLx LWNvbGxhcHNlOiBj w4zfWFDkGFllXV5kyYpl I6CwkAI9MNVhr3h0Kp15 H03jI9XbcYB+PGNvbCB3 jRJ8tY2kDfRcHeD6 OSqnT085XbYhdLBlYfla q3obl1pctTu8GtUwJHFr cgLmiFxwGKF0c8CeLo29 M69gSCwjRQCzNSQn EZObUAMdoLxgds1fpM8q Ii8+ZSBmqCL0cCB0pS5b NpFyRkU6DUirQ398YcCt cAAvAucqT67vA8Js dXA+QLLvIrd0ISKntEeg VD1fvXPyLCroMf8hWZG2 VwLeXgOvGXgzC4TwWAPe pzcgtaqleTL3NJSi NKBvuT35Km5ebAzmPr5a DJRdCRN8LBUbxGHbB0Qe hZ7iVnXqSLBeRVQhK5Vg fDFcBJwxK946VZkw XjI9GBNvihZsZ5VsLQFs oClrBoK3n8Y3Nq1ArPop kAOoFP9pXxExKOs1M1Yf Iry8DPDzoXfbQO3v nHHlTGfoLq4gnLhdcJjl QZ0aUFIdeouwn181OlCv k7jnVYIxrBUdWIiwNXL4 O04dh4Z3XJJqEWLf PSS5pYN9dH2hiXgslppb bGVmdDsgdmVydGljYWwt JKfnU163HGNkjPfqHjCP Ztf0Y7EiXjl5WPCa tAoiJZ3dqQVnWYafNm1f gTyhsCweOX9uNKXayfwp z214DgCwm0otTUUcoXLp UTllCUJ7V68pb7U5 NLRvIZCxQXH4iZQ5fY5h bGlnbjogbGVmdDsgdmVy bThcJEycXGykX773ZCMv hRigNw0AZmr0N2Mj Izl3ZWTsnXbvUK0nmDIz RNtoYf2jeBlcmGpcGE0m DFWiowdzc649VlPuo8rs IDEwcHQgVGltZXM7 W83ti7F0ZGFtQNSgJZD4 aRW4gI7bxYztrqjuePPj dDsgdmVydGljYWwtYWxp N380KLSznEkaRcOn eWVyOjwvdGQ+ZB15uu26 W7GvPjlwHcz3EUEwKID8 zMJ0gE5wJCEbWCxze2J0 fOR4T4KrhpMxlj1f b2x (more content not included)... [facility] Coding Summary [employer]Base 64 MuhgoitlMEf5nZs+PGhl YWQ+HW9GEPHwT46nvLSe dB8KM3tOBM8DLERJQRXB NU0EQT0feHJ1EQsoF0Tj biAv HsrsvIIeDK10DCa0SSZ5 uBulTFhigT1hxCWzZ0o5 RyOlVH76gA90MKvfBJIj OxO5GuAfjanmhNRw B6whXxVwjZCvJdk+PHRh YmxlIHdpZHRoPScxMDAl LtPoxMmvNI6kKm6mLFYp LWNvbGxhcHNlOiBj i2taYKMrMUibIH8fjUpf N6MkfNB5OETti6f9Mz51 dHI+LFUzRRX8oAxvPRfw x838LgBlc7mgZCV6 wFGdYQxaIBB0U27jv8Z9 RXIoMMCxZMJ2mNQ9nQ7b aGcgtbanC9NplAVlFpQ6 ELU0kSAyxS8qhIja gxvfcR4sArm+L53PDF3G BWMZVE7MYrb3M3YjBjqo dHI+YM31FKClGO26cJWt nTXlm4nfcXq3WbGl NPVcSKR2dBqbTGoir2Ud MHCwO13liZSvt9N8TTPt jPlekELxUaSzwCF2vP8w MCkeuoadx5evzgaj Hzski2xpfs48tV84X28g BItlJOQgCBF3DNOeEKRr rCsojg2gaI6gNo0+IDxj d3tqw3jvrWf6JjCn NFTkjiWxzLyrYUT2d9Ri Wt91D0DqeUvfk5ReIia5 no90wZNhh0P7uLC0ORgs GAExiY6gWDegDxU6 AZRwXjGhqO94sUXxAEfc Ok8pbHfpwRtmXL0hRQRa gdooFMXzqR7hXKVopREx cMnmIZ6hUIXsfsua t353TpRyMAD0NRSfvETq O1ZlgM3gQaJiAYOrPYRf M3LbnMFxPZvmT613QGte TwA7OTVmhhZmS8Qh GVMiaQktQzH7q3Y1Rp8Z m4PgwxuwMMY6RZjdWWG2 JxT3SfXaXaK2Q0PyJqn8 ABNndRbuTV9vN1Jf RRPhjyfrjchqoJE0HUHc PIXiaF66fEUfZPjrXd3r o4Y0h331EXZfEMAhiL59 As7ifNtsXMJhgXVF yW9cjpaip8akpohhKgHz UJOfMHp8UIm1ONFqkGrd TrAwULS9FcC6EYZ4hGJc mG1uzTtlhsnpiF3v Oyc+N80tnL4iJVZ8ZPG6 snnzADZyajQuLT73KP52 P8JxGegyrEQroOF+PGRp wgTpeYrpAD7uApFh l4aij7KiFSoeU4OuXLSk UVxsIry0SFJqGOK4pUS5 vE8yQMRrXOuqs0B2xQF9 X3LxljJjqp9xs6jx UAAbAAkwG22idDAve7Q6 LFIlmZM7OUYsdUfrSwWf jZ58Ayg+DJMefDaon9Uy Fhuyf9bfq8rmsUs3 IjMwJSIgdmFsaWduPSJ0 p3IdZn25N21yZIhiUENo TJNrHMFvQVDyxYgqjc0p gH1vGt1+PGNvbCB3 qHZ5eZ3oSYCgOyN9YHkb M213ClEulWOlPkslg9wv x9nvkBm6BbKbPZLwdaTo sHnjBDH4l9LiTi05 A25qQWxmZVFhTFNeHJHt IDYsnMvena2igJ4nTb8+ ZN9yq2cctv66tC71nGJ+ MASzTXR1wUhvUQtp TDChaI3lYEpaRcU2TBVh QvOokF37eZCvMMsvTu4h oLbelAtvFP8qDQQjbzfj w302LlWoc0wdVPJg wFBzLMxrDRW5L01oc7C9 KPLhVMYtPPA8mHZ9hW3o bGlnbjogbGVmdDsgdmVy fIntOCmmWNrpU489 IHRvcDsnPlBhdGllbnQg ZeDkEVf6Q5GyWhf3CYCq qZxgMF6ofOHgANigJm2h uVusfCwgPV6sAGEn awufa970DhXnh0arDSCd rCQbVWyuDBQ4W42hf9N4 JUVaDKQtYVJ7hHP5wK9u bGlnbjogbGVmdDsg dlYtrXecXHbiMHqoN592 IHRvcDsnPkJpcnRoIERh pJI8DJ33QP15lAIbi7A2 zZT8A6NmGWDcwtkb zprgqWY1FQYtTCUbmO96 Uo1rzFyuBj2wPTDmLQI4 DMXlgKHdL8UowN0pKfEi QYOvWHPoX5KlyOGc CYazB792SCevDtK8WGTs lyKrJ4FjPESrnTkvInF0 k6N6Ni6IB6U8OH77DH26 vDNye2G6gWG0D3He BWJsqidlqoredGU7LFUd RIKozQ70Em9hzXlnHw7e BOZkRAZ1BACwsUGwU4Ll fO4sHyVpNQWzQGSj Z6YceQPpUHetI484XPkv VeW5GDDofmToQ0FyJVXt lNiuYoE7a9O8Ur6SIMx7 BQ82IF40zFIlo0Y8 hZL6A2JyPEVfolrbbegg lXC8TBStCAJsoE10Tw4x zYuyRi3gZIJoMNM0HLMl tITjK7EwvQ3pJeHx XBTsEKWkV9WjoAReNPqp D613VRmcRdV2SCLjaqAc S6VlAVLaeVaxKjS3t2I6 Ta6PYAQaDE06UFD4 xAP5TB05LM34Y6IkDpvo dGFibGU+PHRhYmxlIHdp ZHRoPScxMDAlJyBzdHls GE7yLm6cECEdOKAf aSeaqEMiZhUjp9ioFHLh RAbkYT8vhJudB7AbcHM5 DAFbz3u8Uu15F55nQ8Xx dXA+MIQtmXB2lKQ2 uL6kChGcQwW1COwgZ300 RaRbrLToWfbov6rif7oi nAm7PxS6CXXzyrEoiTkw LCU0c0SwDb19E02a IHdpZHRoPSIxNSUiIHZh pUfwsm0ryE4rAv8+PGNv pBO0cFE4fV6jWhCxScJ0 XBhoR232RtSfxBJe Mbqvw2aue7yrmYb2RqJe OGZgvkQmvKppJCA6w8Re Sr03H2BadTpox2AsIpz1 cg71wHWdc9Y7oER9 I9FeXPWjovckwSFefQwh IS9eAGTsyxpoBQDzmV2f PGPnA8y5DpHgAvF7NFfn T2FtstU8DNFiqWYm YEzuVCL5J67bm3B0GIZz JZYxLWD9mTQ9bT7jcYhi bjogbGVmdDsgdmVydGlj EBlsGGvwJ267THYe lUyxTUGjxT5uDKBkyUUu bPujQM9zPUWacxasLrJQ W7NRF46NBEVMX9HHLdXp BPdBSF64G1XqShc2 IWBorUenLH6lyQDgBJiv Sm8rvWbsvGhsCS2nKORj tpfkOFYhdJ8gQSLtpYKc oWphCC9dFYNvfqzh i022TiMhEGP8KGNpfBCy W2DdrE9qJrAoOXWxUCBe Z2JeaESfRBpmR736RXyk LoN0TMYwqoQhT2Ie KZVodRuhOqE8z2L5Si9e EM4lWr1sULF9OB81AX84 vPPfl5L8vTQ1E9GlTYGn xkoiwtcfiKH0EEVi VTNwfQ09uQHqFWijZs9y l2I0e036QTKeKTVsxM24 Xf7kxUvmWXXydXDVpA3m odibq6vequryAiAz MXChZTo4IEc0WHGsuGra SpHkZOE5UpX0CRT5dUSt uB2sjPzerbocjL0lEmq+ ZPOwPGZnjaX8R2Lr Ryx5KHLboIwoSW7qdSWo NBefPb6igWhsmFmxBH4y ALKvkasfMZBhfB7bBKQl xPXvmSfeBS6vBETa zjdcb842HrCwPDD9RNBl yXWeW8KelF3iLcVyXFTi ODAyM0JsbXOvQXonY932 WRbsIrP6KKAloiHm Y3SkOMDkkGbdMcE3r1H7 Gf4RIRfZTZ15AO63xEBp o0S1gVU5E1XfOKYgnkep ltwxpOX8QAHkLUXt qO42wAUjHVzdTa3ls2W0 z923FWShDSNnoS53Qe3k fWxxJBMrhALYkZ4ymbjx k0vjzebwLiJhFZPj QIq2VEt0DUNeyNarLcKd PBT3HyY1CLE4vZEsiK0c dUngoxyukO7bLnr+RW1l uyifpkK0ZT71YJ76 E9ThNunczJAffLC+PHRh YmxlIHdpZHRoPScxMDAl XlYhgHysYV9oFk2oVMZf LWNvbGxhcHNlOiBj l0giGEHpHIlyDP3jjYwu X3TkrWE1UAMqz3g6Mt08 I02fD0SwkNY+PGNvbCB3 yQJ1bW6sRfXeWdQ5 NHrkW832FwKjeXNoMeww m2xgy9vsvMv1DiVpNXLt klLysNjtBLH6n1DiFi73 U94tRNpaILCcSLQv PTVxHFRriDeqmz3cbR5j Ii8+WGYckCS7hKV8xN4c UkOjIgN5HHpuW739DzMx eMLfNipjU42wN5Ca dXA+QLWgZyp7KZCsjIeo SZ7tzBBrPNypHa2rXNL9 NuTaXlKoBEvxB1OySODg ynctrvmntJI3TTXc PQQpyI90Uc6vwZohOe0u PUQwTUD8RCZgrDUoE7Pw kT7bSjShJKYhNGRtT9Tk mXAyYEqiX432QRls RpQ9OQGxwtIbD7NwFATx rPjeRqH8k5M4Hk1NvEym pAIzXH1aBkJbEYd6T7Hr Onu4PBXrjOzsMB0z zYJbVUolFv2joRthaOcj MV4dPNSxmnwsm940WbJj m1ruTKMlaMEzCWrpEMS6 E91th3V8OZYgYLGl TCR2oET0cZ4kmDkgwhov bGVmdDsgdmVydGljYWwt CDlmO394VFLzsAbeBxAS Mjs2V0DgDuf7JWUk hGpxJO9dpOUjVJgmXq5l gTfatLxkME3xBXLqxjdr m389PcNmx5qjYDFckKUo FLlzIWL7E57wv3H1 GVSgDOVbATR5kRC9cE8g bGlnbjogbGVmdDsgdmVy mYwbWXfqMGhjX488LFKu iTzfCd8RTkb7P6Ba Ngg1LIJavVzoZD8nuVMo FAvrZf0swCfhgOvjHN9u AAQcziehr973KsLok7kz IDEwcHQgVGltZXM7 B89qc1T0EAIzHOEaYKG6 gDM2nA1fuJalzoeqzEUb dDsgdmVydGljYWwtYWxp P277TKCygItfGyVm eWVyOjwvdGQ+UQ35tz64 R2IkLxxtSzj9WCInULE0 hNX9mI0tHBCeQSszv5S2 bLV2U4AarhIkzx5t b2x (more content not included)... [facility] ED Clinical Summaryon 2020 ED Clinical Summary [facility] - Emergency Department [address] [place] [address] ED Clinical Summary PERSON INFORMATION Name: ROSA EASTMAN Age: 55 Years Sex: MALE : 1965 MRN: Acct#: Visit Reason: Hand pain-swelling; RIGHT WRIST PAIN Arrival: 04/01/2021 19:05:43 Discharge: 04/01/2021 19:35:00 LOS: 000 00:30 Check In: 04/01/2021 19:05:43 Checkout:04/01/2021 19:35:00 Address: [address] [place] [address] PCP: Provider, None PROVIDER INFORMATION Provider Role [...] Follow-Up: With: Address: When: Andrew Mckenzie DO [address] [place] [address] Within 3 to 5 days DIAGNOSIS: 1:Sprain of right wrist Patient Understands: Yes - Patient/family/careg iver verbalizes understanding of instructions given Comment: [facility] ED Patient Summaryon 021 ED Patient Summary [facility] - Emergency Department [address] [place] [address] PATIENT DISCHARGE INSTRUCTIONS Patient Information Name: ROSA EASTMAN Age: 55 Years Date of : 1965 Reason For Visit: Hand pain-swelling; RIGHT WRIST PAIN Arrival Time: 04/01/2021 19:05:43 Primary Care Physician: Provider, None Attending Physician: Medhat Hernandez MD Comment: Visit Diagnosis: Diagnoses This Visit Hand pain-swelling ([id number]) Sprain of right wrist (S63.501A) Prescription Information: If you have been given a prescription for narcotics, seek immediate medical attention if you have any difficulty breathing or any sudden status changes such as confusion and sleepiness. If you or anyone you know is experiencing suicidal thoughts, mental health, alcohol and/or drug addiction problems; contact the [facility] 02/06 Crisis Hotline -Text 4IVCN mz 650972. If you received any narcotics, sedation, or [...] With: Address: When: Magaly Andrew Grande DO [address] [place] [address] Within 3 to 5 days Medication Information: The exam and treatment you received today in the [facility] Emergency Department were for an urgent problem and are not intended as complete care. It is important for you to follow up with a doctor, nurse practitioner, or physician?s ob gyn physician assistant for ongoing care. If your symptoms [...] so we can reach you if necessary. [facility] Emergency Department has provided you with a complete list of medications post discharge. Please inform your sound recording technician/provider of your visit and for further instruction on these medications. Any specific questions regarding your chronic medications and dosages should be discussed with your primary care physician(s) and/or pharmacist. Medications to Continue That Have Not Changed Other Medications acetaminophen-hydroc odone (hydrocodone-acetami nophen 5 mg-325 mg (Rydal 5)) 1 tab(s) Oral Every 6 hours [...] With poor (more content not included)... [facility] Vital Signs Date Time Vital Sign Value Performing Clinician Facility 02-20-2023 14:00-0400 Body height 172.72 cm Josué Evangelista Other [facility] Other 02-20-2023 14:00-0400 Body mass index (BMI) [Ratio] 32.08 kg/m2 Josué Evangelista Other [facility] Other 02-20-2023 14:00-0400 Body weight 95.71 kg Josué Evangelista Other [facility] Other 02-20-2023 14:00-0400 Diastolic blood pressure 80 mm[Hg] Josué Evangelista Other [facility] Other 02-20-2023 14:00-0400 Systolic blood pressure 130 mm[Hg] Josué Evangelista Other [facility] Other 01-22-2023 09:40-0400 Diastolic blood pressure 84 mm[Hg] DO Britt Rumschlag Work Phone: [facility] 01-22-2023 09:40-0400 Heart rate 70 /min DO Britt Rumschlag Work Phone: [facility] 01-22-2023 09:40-0400 Respiratory rate 16 /min DO Britt Rumschlag Work Phone: [facility] 01-22-2023 09:40-0400 SaO2% (BldA) [Mass fraction] 96 % DO Britt Rumschlag Work Phone: [facility] 01-22-2023 09:40-0400 Systolic blood pressure 136 mm[Hg] DO Britt Rumschlag Work Phone: [facility] 01-22-2023 08:47-0400 Body temperature 98 [degF] DO Britt Rumschlag Work Phone: [facility] 01-22-2023 08:12-0400 Inhaled oxygen flow rate 10 L/min DO Britt Rumschlag Work Phone: [facility] 01-22-2023 07:35-0400 Body height 172.72 cm DO Britt Rumschlag Work Phone: [facility] 01-22-2023 07:35-0400 Body mass index (BMI) [Ratio] 32.4 kg/m2 DO Britt Rumschlag Work Phone: [facility] 01-22-2023 07:35-0400 Body weight 96.8 kg DO Britt Rumschlag Work Phone: [facility] 03-13-2022 11:45-0400 Body height 172.72 cm Harvey Holt Other [facility] Other 03-13-2022 11:45-0400 Body mass index (BMI) [Ratio] 32.23 kg/m2 Harvey Holt Other [facility] Other 03-13-2022 11:45-0400 Body weight 96.16 kg Harvey Holt Other [facility] Other 01-14-2022 14:30-0500 Body height 172.72 cm Harvey Salcidocamilo Other [facility] Other 01-14-2022 14:30-0500 Body mass index (BMI) [Ratio] 32.23 kg/m2 Harvey Salcidocamilo Other [facility] Other 01-14-2022 14:30-0500 Body weight 96.16 kg Harvey Yanet Other [facility] Other 09-19-2021 11:00-0500 Body height 172.72 cm Harvey Yanet Other [facility] Other 09-19-2021 11:00-0500 Body mass index (BMI) [Ratio] 32.23 kg/m2 Harvey Yanet Other [facility] Other 09-19-2021 11:00-0500 Body weight 96.16 kg Harvey Yanet Other [facility] Other 09-19-2021 11:00-0500 Diastolic blood pressure 87 mm[Hg] Harvey Yanet Other [facility] Other 09-19-2021 11:00-0500 Systolic blood pressure 130 mm[Hg] Harvey Holt Other [facility] Other Encounters Encounter Date Encounter Type Care Provider Facility Start: 06-28-2024 End: 06-28-2024 ambulatory Richard Lezama MD Facility:[facility] Start: 04-22-2024 End: 04-22-2024 ambulatory GÓMEZ SIDHU Not Available Start: 04-19-2024 End: 04-19-2024 ambulatory Richard Lezama MD Facility:[facility] Start: 03-15-2024 End: 03-15-2024 ambulatory Richard Pereyraitis Facility:[facility] Start: 02-09-2024 End: 02-09-2024 ambulatory Richard Pereyraitis Facility:[facility] Start: 01-12-2024 End: 01-12-2024 ambulatory Richard Pereyraitis Facility:[facility] [place] Start: 12-22-2023 End: 12-22-2023 ambulatory Andlucyus Deniz Pereyraitis Facility:[facility] Start: 12-08-2023 End: 12-08-2023 ambulatory Andrius Harjinderytautlaurel Pereyraitis Facility: [place] Start: 10-15-2023 End: 10-15-2023 ambulatory CANDIS RENTERIA [facility] Start: 10-14-2023 End: 10-15-2023 ambulatory BRITT MARYSCHLAG [facility] Start: 03-04-2023 End: 03-05-[address] DOCTOR GARCIA Facility: Start: 02-28-2023 End: 02-28-2023 ambulatory Josué Evangelista Other [facility] Other Start: 02-28-2023 Telephone encounter Josué Evangelista [facility] Start: 02-20-2023 End: 02-20-2023 ambulatory Josué Evangelista Other [facility] [facility] Other Start: 02-20-2023 Postop follow up vis it related to original px Josué César [facility] Start: 01-22-2023 End: 01-22-2023 Admission to same day surgery center DO Britt Rumschlag Work Phone: [facility] [place] Start: 01-22-2023 End: 01-22-2023 ambulatory Josué Evangelista Facility:[facility] Start: 01-22-2023 End: 01-22-2023 ambulatory DO Britt Rumschlag Work Phone: [facility] Work Phone: Start: 01-13-2023 End: 01-13-2023 ambulatory Josué Evangelista Facility:[facility] Start: 01-13-2023 End: 01-13-2023 ambulatory DO Britt Rumschlag Work Phone: [facility] Work Phone: Start: 01-13-2023 End: 01-13-2023 Patient encounter procedure DO Britt Rumschlag Work Phone: [facility] [facility] Work Phone: Start: 12-06-2022 End: 12-06-2022 ambulatory Josué Adelaida Evangelista Facility:[facility] Start: 12-06-2022 End: 12-06-2022 Patient encounter procedure DO Britt Rumschlag Work Phone: [facility] [place] Work Phone: Start: 08-10-2022 End: 08-10-2022 ambulatory [facility] Facility: Start: 07-08-2022 End: 07-08-2022 ambulatory Gómez Sidhu Facility:[facility] Start: 07-08-2022 End: 07-08-2022 Patient encounter procedure [facility] [address] Start: 06-21-2022 End: 06-21-2022 ambulatory Gómez Sidhu Facility:[facility] Start: 06-21-2022 End: 06-21-2022 Patient encounter procedure [facility] [place] Start: 03-13-2022 End: 03-13-2022 ambulatory Harvey Holt Other [facility] [employer] Other Start: 03-13-2022 Office outpatient visit 15 minutes Harvey Holt [facility] Start: 01-14-2022 End: 01-14-2022 ambulatory Harvey Holt Other [facility] [employer] Other Start: 03-07-2022 Office outpatient visit 15 minutes Harvey Holt [facility] Start: 10-16-2021 Admission to [facility] surgery center Harvey Holt [facility] Start: 10-16-2021 End: 10-16-2021 ambulatory Harvey Holt Other [facility] [employer] Other Start: 09-19-2021 End: 09-19-2021 ambulatory Harvey Holt Other [facility] [employer] Other Start: 09-19-2021 Office outpatient ne w 45 minutes Harvey Holt [facility] Procedures Date Procedure Procedure Detail Performing Clinician Start: 01-22-2023 Decompression of uln ar nerve DO [facility] [employer] Work Phone: Start: 12-06-2022 X-ray of cervical spine DO Britt [employer] Work Phone: Start: 07-08-2022 MRI of head Plan of Treatment Date Care Activity Detail Author Start: 01-22-2023 End: 01-22-2023 [facility] Start: 07-08-2022 MRI of head MR head/brain wo con [facility] Start: 07-08-2022 End: 07-08-2022 Patient encounter procedure Departed Clinical [facility] [address] Patient referral [facility] Work Phone: Immunizations Immunization Date Immunization Notes Care Provider Augustus villanueva 03-07-2021 COVID-19 mRNA, Comir philip (Pfizer) [facility] 02-14-2021 COVID-19 mRNA, Comir philip (Pfizer) [facility] Payers Date Payer Category Payer Unknown 2022 Medicaid [id number] 2022 Self-pay [id number] 1965 Unknown [id number] 2.16.84 0.1.741807.3.579.2.593 1965 Unknown [id number] 2.16.84 0.1.530475.3.579.2.593 1965 Unknown [id number] 2.16.8 40.1.928065.3.579.2.173 1965 Unknown [id number] 2.16.8 40.1.559149.3.579.2.173 1965 Unknown [id number] 2.16.8 40.1.870193.3.579.2.173 1965 Unknown [id number] 2.16.84 0.1.847924.3.579.2.1259 1965 Unknown [id number] 2.16. 840.1.898891.3.579.2.196 1965 Unknown [id number] 2.16. 840.1.837267.3.579.2.196 1965 Unknown [id number] 2.16. 840.1.793442.3.579.2.196 1965 Unknown [id number] 2.16. 840.1.577554.3.579.2.196 1965 Unknown [id number] 2.16. 840.1.968372.3.579.2.196 1965 Unknown [id number] 2.16. 840.1.925711.3.579.2.196 1965 Unknown [id number] 2.16. 840.1.632848.3.579.2.196 1959 Unknown [id number] 2.1 6.840.1.514659.19 Unknown [id number] 2.1 6.840.1.639328.19 Unknown [id number] 2.16.8 40.1.320247.3.579.2.531 Unknown [id number] 2.16.8 40.1.849831.3.579.2.531 Unknown [id number] 2.16.8 40.1.328509.3.579.2.531 Unknown [id number] 2.16.8 40.1.849208.3.579.2.531 Unknown [id number] 2.16.8 40.1.502170.3.579.2.531 Social History Date Type Detail Facility Sex Assigned At [facility] [employer] Other Start: 10-16-2021 End: 01-22-2023 Tobacco smoking status NHIS Smoker (finding) [facility] Start: 1965 Sex Assigned At Male [facility] Medical Equipment Procedure Code Equipment Code Equipment Origin al Text Equipment Identifier Dates BONE 7MM DUO FORTITUDE SERIES FDA Start: 10-16-2021 Spinal fixation plate, non-bioabsorbable ()[id number] FDA Start: 10-16-2021 Bone-screw inter nal spinal fixation system, non-sterile ()[id number] FDA Start: 10-16-2021 Bone-screw inter nal spinal fixation system, non-sterile ()[id number] FDA Start: 10-16-2021 BONE 7MM DUO FORTITUDE [...] 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 I will see him on an as-needed basis I think he has had a good outcome overall. [facility] Other 05-04-2022 Evaluation note* Encounter Date Diagnosis [...] Cervical spondylosis with myelopathy (ICD-10 - M47.12) [facility] [facility] Other 03-29-2022 [employer] Neurology Paresthesia Paresthesia [...] or sweet foods. General instructions ? Take upqc-rrt-dzzuhkl and prescription medicines only as told by [...] provider. Document Revised: 11/22/2019 Document Reviewed: 11/05/2018 [email or web address] Patient Education ? 2020 [email or web address] Orthopedics Cubital Tunnel Syndrome Cubital tunnel [...] ? Playing contact sports, (more content not included)...[facility] 01-14-2022 Evaluation note* Encounter Date Diagnosis Assessment [...] will see him on an as-needed basis. [employer] [facility] Other 11-10-2021 Evaluation note* Encounter Date Diagnosis [...] They understand and would like to proceed [employer] [facility] Other 09-27-2021 Note [id number]05-23-2021 NoteEducation Materials Orthopedics Wrist Sprain, Adult [...] health care provider. General instructions ? Take atwz-qrf-qpvjrvq and prescription medicines only as told by [...] provider. Document Revised: 10/09/2018 Document Reviewed: 05/15/2017 [employer] Patient Education ? 2019 [email or web address] Wrist and Forearm Exercises Ask your health care provider which exercises are safe for you. Do exercises exactly as told by your health care provider and adjust them as directed. It is normal to feel mild stretching, pulling, tightness, or discomfort as you do these exercises. Stop right away if you feel sudden pain or your (more content not included)...[facility] noteNo InformationNort Natural Dentist Other evaluation noteNo assessment information available [facility] Work Phone: History general Narrative - Reported* Type Description Date Surgical History (R) carpal tunnel release Surgical History (R) Ulnar nerve release Surgical History tonsillectomy Hospitalization History See Above [employer] Other Hospital Discharge instructions Additional Instructions Use [...] Any unusual redness or drainage contact the [facility] Work Phone: Summary Purpose Family History [...] 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) Referral Organization [facility] Referring Provider First Name Harvey Referring Provider Last Name Yanet Referring Provider Specialty Neurosurger y Referred Organization [facility] Referred Provider Jonn Singer [place] Address [address] [place],[address] Referred Provider Specialty Neurology Referral Priority Routine [...] section and content) DATE CREATED AUTHOR 02/16/2022 [facility] DATE CREATED AUTHOR AUTHOR'S ORGANIZ ATION 01/23/2023 [facility] DATE CREATED AUTHOR AUTHOR'S ORGANIZ ATION 03/08/2023 [facility] DATE CREATED AUTHOR AUTHOR'S ORGANIZ ATION 10/18/2023 [facility] DATE CREATED AUTHOR AUTHOR'S ORGANIZ ATION 04/23/2024 [facility] EPIC DATE CREATED AUTHOR AUTHOR'S ORGANIZ ATION 07/10/2024 [facility] REASON FOR VISIT (unrecogniz ed section and content) Referred Dr. Magaly Medeiros ical Discacdf C3-43 months po ACDFEMG RESULTSright ulnar nerve release4 wk po/ Right ulnar nerve/ [id number] Care Teams (unrecognized sec tion and content) Team Status: Inactive Member Role Status Dates Gómez Alexander PA-C Attending Provider Active Britt Goodman DO Primary Care Provider Active Team Status: Inactive Member Role Status Dates NON STAFF Primary Care Provider Active Gómez Alexander PA-C Attending Provider Active Team Status: Active Member Role Status Dates Britt Goodman , Primary Care Provider Active Team Status: Inactive Member Role Status Dates Britt Goodman , Primary Care Provider Active Josué Evangelista MD [...] BE BASED ON THE PRIMARY CLINICAL RECORDS. [facility] [employer] [facility]. provides no warranty or guarantee of the accuracy or completeness of information in this document.
[2024-08-23 09:10] VITALS: BP 123/62; PULSE 80; TEMP 36.8; O2SAT 97
[2024-08-23 09:59] VITALS: BP 128/80; PULSE 71; O2SAT 97
[2024-08-23] MEDS: 0.9 % SODIUM CHLORIDE 10 ML SYRINGE - SALINE FLUSH INJ (10:01)
[2024-08-23] MEDS: BUPIVACAINE HCL 0.25% PF 25 MG/10 ML VIAL INJ (10:01)
[2024-08-23] MEDS: LIDOCAINE HCL 2% 400 MG/20 ML MDV 5 ML INJ (10:01)
[2024-08-23] MEDS: IOHEXOL 240 MG/ML - 10 ML VIAL INJ (10:01)
[2024-08-23] MEDS: TRIAMCINOLONE ACETONIDE 40 MG/ML VIAL 80 MG INJ (10:02)
[2024-08-23 10:03] VITALS: BP 133/75; PULSE 68; O2SAT 95
--- NOTE | 2024-08-23 10:05 | P.ON_ITS ---
Date of procedure: 08/23/24 Pre-op diagnosis: Pain due to lumbar stenosis with neurogenic claudication Post-op diagnosis: same as pre-op Procedure: Procedure: Right L4-5, l5-S1 transforaminal epidural steroid injection Medications: Bupivacaine 0.25% 2cc, lidocaine 2% 1cc, kenalog 80mg The patient was seen and examined in the preoperative holding area.? Informed consent was obtained and placed on the chart.? Patient was brought to the medical procedure unit and placed in the prone position where a timeout was completed verifying the correct patient, procedure site, position, and planned special equipment using sterile aseptic technique.? Under direct fluoroscopic visualization a 25-gauge Quincke tipped spinal needle was advanced to the designated neural foramen where contrast dye was injected to show adequate spread.? The needle was inserted at level right L4-5. There was no evidence of vascular or adverse uptake.? Epidural spread was appreciated.? The above- mentioned injectate was then placed in a 1.5 mL aliquot preceded by negative aspiration.? The needle was removed. The needle was inserted and the procedure repeated at level right L5-S1.? The surgery site was covered.? Patient was taken to the postprocedural recovery area and monitored for an appropriate length of time before found suitable for discharge in the accompaniment of a responsible adult. Anesthesia: Local Surgeon: Richard Lezama Pathology: none sent Condition: stable Disposition: no change
== END 2024-08-23 10:06 | disposition home or self-care (01) ==
LOC: SURGOUT 08:50
PROVIDERS: PCP Family Medicine; Visit Provider Anesthesiology
DX: M48.062 Spinal stenosis, lumbar region with neurogenic claudication (principal)
CPT/HCPCS: 64483; 64484; J0665; J3301; Q9966

== ENCOUNTER 2024-09-01 13:34 | Outpatient (OUT) | payer MEDICAID, SELFPAY ==
--- NOTE | 2024-09-01 13:56 | PM.CN ---
Consult Note: HPI Data of Consult Patient: known to practice within the last 3 years Consult date: 06/28/24 Requesting Physician: Wilma Bhardwaj NP Primary Care Provider: Britt Goodman Consult Narrative Reason for consult: right low back and leg pain Narrative: 59yom who presents for assessment. notes worsening pain in low back, right buttock, right leg. imaging consistent with stenosis at multiple levels of lumbar spine, including l4-5, l5-s1. has continued in a series of provider directed home exercises >6 weeks, without lasting benefit. continues using flexeril, gabapentin. denies adverse med side effects. recent right L4/5 L5/S1 TFESI providing 85% improvement in lumbar stenosis with NC. continues to have moderate to severe sharp right low back pain with standing, walking, lifting, and activity. cc:: CC: Wilma Bhardwaj NP Review of Systems ROS Status of ROS 10 or more systems reviewed and unremarkable except as noted in history and below Musculoskeletal Reports: back pain and joint pain PFSH [facility] Medical History (Updated 05/20/24 @ 11:19 by Wilma Bhardwaj NP) Glaucoma ?H40.9 - Unspecified glaucoma (ICD-10) Obesity ?E66.9 - Obesity, unspecified (ICD-10) Smoker ?F17.200 - Nicotine dependence, unspecified, uncomplicated (ICD-10) Low back pain ?M54.50 - Low back pain, unspecified (ICD-10) Neck pain ?M54.2 - Cervicalgia (ICD-10) Osteoarthritis ?M19.90 - Unspecified osteoarthritis, unspecified site (ICD-10) Bipolar depression ?F31.9 - Bipolar disorder, unspecified (ICD-10) Carpal tunnel syndrome ?G56.00 - Carpal tunnel syndrome, unspecified upper limb (ICD-10) Chronic GERD ?K21.9 - Gastro-esophageal reflux disease without esophagitis (ICD-10) Acid reflux ?K21.9 - Gastro-esophageal reflux disease without esophagitis (ICD-10) Sleep apnea ?G47.30 - Sleep apnea, unspecified (ICD-10) High cholesterol ?E78.00 - Pure hypercholesterolemia, unspecified (ICD-10) Surgical History H/O neck surgery ?Z98.890 - Other specified postprocedural states (ICD-10) H/O elbow surgery ?Z98.890 - Other specified postprocedural states (ICD-10) H/O carpal tunnel repair ?Z98.890 - Other specified postprocedural states (ICD-10) Hx of tonsillectomy ?Z90.89 - Acquired absence of other organs (ICD-10) H/O eye surgery ?Z98.890 - Other specified postprocedural states (ICD-10) Meds Home Medications and Allergies Home Medications ?Medication ?Instructions ?Recorded ?Confirmed ?Type epinephrine 0.3 mg/0.3 mL 0.3 mg IM DAILY PRN anaphylaxis 08/30/23 08/23/24 History injection, auto-injector latanoprost 0.005 % eye drops 1 drp ophthalmic (eye) .QHS 08/30/23 08/23/24 History omeprazole 40 mg capsule,delayed 40 mg PO QAM 08/30/23 08/23/24 History release rosuvastatin 5 mg tablet 5 mg PO DAILY 08/30/23 08/23/24 History cyclobenzaprine 5 mg tablet 5 mg PO DAILY 12/08/23 08/23/24 History gabapentin 100 mg capsule 100 mg PO DAILY 12/08/23 08/23/24 History famotidine 20 mg tablet mg 04/19/24 History Allergies Allergy/AdvReac Type Severity Reaction Status Date / Time bee venom protein (honey bee) Allergy Severe UNKNOWN Verified 08/23/24 09:17 Penicillins Allergy Severe LOSS OF Verified 08/23/24 09:17 CONCIOUSNESS Exam Constitutional Documenting provider has reviewed patient's vital signs: yes Common normals: no apparent distress, oriented x3, healthy appearing, alert and well nourished General appearance: cooperative [facility] Common normals: normocephalic, hearing grossly normal bilaterally and moist oral mucous membranes Head and scalp: normocephalic Eye Common normals: PERRL Pupil: PERRL Neck & C-Spine Common normals: full ROM General: normal visual inspection Chest Common normals: inspection of chest normal Respiratory Common normals: normal respiratory effort, no retractions and no use of accessory muscles Back & Pelvis Lumbar spine/lower back: ROM limited, pain with ROM and straight leg raise negative bilaterally Sacroiliac joints: SI joint(s) abnormal Other: right SIJ positive lakeisha(patricks), gaenslens, thigh thrust, compression test strength 5/5 in BLE positive axial facet loading negative radiculopathy sensation intact BLE Neuro Common normals: oriented x3, CN's II-XII intact bilaterally, moves all extremities, no focal motor deficits, no sensory deficits noted and deep tendon reflexes 2+ bilaterally Sensorium/orientation: alert Motor exam: strength 5/5 throughout and no movement abnormalities noted Psych Common normals: mental status grossly normal, thought process normal, cooperative, affect normal, speech normal and activity/motor behavior normal Speech: normal speech Thought process: normal thought process Assessment and Plan Assessment and Plan (1) Sacroiliitis: (2) Lumbar stenosis with neurogenic claudication: (3) Lumbar spondylosis: Plan right SIJ injection under fluoroscopy continue HEP as tolerated continue current medications f/u after injection
== END 2024-09-01 13:35 | disposition home or self-care (01) ==
LOC: PM 13:34
PROVIDERS: PCP Family Medicine; Visit Provider Nurse Practitioner
DX: M46.1 Sacroiliitis, not elsewhere classified (principal); M48.062 Spinal stenosis, lumbar region with neurogenic claudication; M47.816 Spondylosis without myelopathy or radiculopathy, lumbar region
CPT/HCPCS: G0463

== ENCOUNTER 2024-09-13 09:49 | Day surgery (SDC) | payer MEDICAID, SELFPAY ==
[2024-09-13 10:45] VITALS: BP 123/79; PULSE 77; TEMP 36.3; O2SAT 97
[2024-09-13 11:11] VITALS: PULSE 67; O2SAT 95
[2024-09-13 11:13] VITALS: BP 128/64; BP 129/60; PULSE 69; O2SAT 96
[2024-09-13] MEDS: LIDOCAINE HCL 2% 400 MG/20 ML MDV INJ (11:16)
[2024-09-13] MEDS: TRIAMCINOLONE ACETONIDE 40 MG/ML VIAL INJ (11:16)
[2024-09-13] MEDS: IOHEXOL 240 MG/ML - 10 ML VIAL 24 MG INJ (11:16)
[2024-09-13] MEDS: BUPIVACAINE HCL 0.25% PF 25 MG/10 ML VIAL 2 ML INJ (11:16)
--- NOTE | 2024-09-13 11:18 | W.PM.PROCNOT ---
Date of procedure: 09/13/24 Pre-op diagnosis: Pain due to right sacroiliitis Post-op diagnosis: same as pre-op Procedure: Procedure: Right sacroiliac joint injection Medications: Bupivacaine 0.25% 3cc, kenalog 40mg After informed consent was obtained, the patient was brought to the medical procedure unit and placed in the prone position, when a timeout was completed verifying correct patient, procedure, site, positioning, implant, and/or special equipment.? The skin overlying the area was prepped and draped in standard sterile fashion using alcohol.? A 25-gauge needle was inserted towards the right sacroiliac joint under direct fluoroscopic imaging.? Needle tip was advanced until the joint was encountered.? We instilled a total of 2 mL of solution.? Postoperatively needles were removed.? The patient tolerated the procedure well without complication.? The patient reported reduction in pain symptoms postoperatively. Anesthesia: Local Surgeon: Richard Lezama Pathology: none sent Condition: stable Disposition: no change
== END 2024-09-13 11:18 | disposition home or self-care (01) ==
PROVIDERS: PCP Family Medicine; Visit Provider Anesthesiology
DX: M46.1 Sacroiliitis, not elsewhere classified (principal)
CPT/HCPCS: 27096; J0665; J3301; Q9966

== ENCOUNTER 2024-09-22 12:53 | Outpatient (OUT) | payer MEDICAID, SELFPAY ==
--- NOTE | 2024-09-22 13:11 | PM.CN ---
Consult Note: HPI Data of Consult Patient: known to practice within the last 3 years Consult date: 06/28/24 Requesting Physician: Wilma Bhardwaj NP Primary Care Provider: Britt Goodman Consult Narrative Reason for consult: right low back and leg pain Narrative: 59yom who presents for assessment. notes worsening pain in low back, right buttock, right leg. imaging consistent with stenosis at multiple levels of lumbar spine, including l4-5, l5-s1. has continued in a series of provider directed home exercises >6 weeks, without lasting benefit. continues using flexeril, gabapentin. denies adverse med side effects. recent right L4/5 L5/S1 TFESI providing 85% improvement in lumbar stenosis with NC and greater than 80% improvement from recent right SIJ injection. cc:: CC: Wilma Bhardwaj NP Review of Systems ROS Status of ROS 10 or more systems reviewed and unremarkable except as noted in history and below Musculoskeletal Reports: back pain and joint pain PFSH [facility] Medical History (Updated 05/20/24 @ 11:19 by Wilma Bhardwaj NP) Glaucoma ?H40.9 - Unspecified glaucoma (ICD-10) Obesity ?E66.9 - Obesity, unspecified (ICD-10) Smoker ?F17.200 - Nicotine dependence, unspecified, uncomplicated (ICD-10) Low back pain ?M54.50 - Low back pain, unspecified (ICD-10) Neck pain ?M54.2 - Cervicalgia (ICD-10) Osteoarthritis ?M19.90 - Unspecified osteoarthritis, unspecified site (ICD-10) Bipolar depression ?F31.9 - Bipolar disorder, unspecified (ICD-10) Carpal tunnel syndrome ?G56.00 - Carpal tunnel syndrome, unspecified upper limb (ICD-10) Chronic GERD ?K21.9 - Gastro-esophageal reflux disease without esophagitis (ICD-10) Acid reflux ?K21.9 - Gastro-esophageal reflux disease without esophagitis (ICD-10) Sleep apnea ?G47.30 - Sleep apnea, unspecified (ICD-10) High cholesterol ?E78.00 - Pure hypercholesterolemia, unspecified (ICD-10) Surgical History H/O neck surgery ?Z98.890 - Other specified postprocedural states (ICD-10) H/O elbow surgery ?Z98.890 - Other specified postprocedural states (ICD-10) H/O carpal tunnel repair ?Z98.890 - Other specified postprocedural states (ICD-10) Hx of tonsillectomy ?Z90.89 - Acquired absence of other organs (ICD-10) H/O eye surgery ?Z98.890 - Other specified postprocedural states (ICD-10) Meds Home Medications and Allergies Home Medications ?Medication ?Instructions ?Recorded ?Confirmed ?Type epinephrine 0.3 mg/0.3 mL 0.3 mg IM DAILY PRN anaphylaxis 08/30/23 09/13/24 History injection, auto-injector latanoprost 0.005 % eye drops 1 drp ophthalmic (eye) .QHS 08/30/23 09/13/24 History omeprazole 40 mg capsule,delayed 40 mg PO QAM 08/30/23 09/13/24 History release rosuvastatin 5 mg tablet 5 mg PO DAILY 08/30/23 09/13/24 History cyclobenzaprine 5 mg tablet 5 mg PO DAILY 12/08/23 09/13/24 History gabapentin 100 mg capsule 100 mg PO DAILY 12/08/23 09/13/24 History famotidine 20 mg tablet mg 04/19/24 History Allergies Allergy/AdvReac Type Severity Reaction Status Date / Time bee venom protein (honey bee) Allergy Severe UNKNOWN Verified 09/13/24 10:49 Penicillins Allergy Severe LOSS OF Verified 09/13/24 10:49 CONCIOUSNESS Exam Constitutional Documenting provider has reviewed patient's vital signs: yes Common normals: no apparent distress, oriented x3, healthy appearing, alert and well nourished General appearance: cooperative [facility] Common normals: normocephalic, hearing grossly normal bilaterally and moist oral mucous membranes Head and scalp: normocephalic Eye Common normals: PERRL Pupil: PERRL Neck & C-Spine Common normals: full ROM General: normal visual inspection Chest Common normals: inspection of chest normal Respiratory Common normals: normal respiratory effort, no retractions and no use of accessory muscles Back & Pelvis Lumbar spine/lower back: lumbar ROM normal and straight leg raise negative bilaterally; no pain with ROM Sacroiliac joints: SI joints normal Other: right SIJ negative lakeisha(patricks), gaenslens, thigh thrust, compression test strength 5/5 in BLE positive axial facet loading negative radiculopathy sensation intact BLE Neuro Common normals: oriented x3, CN's II-XII intact bilaterally, moves all extremities, no focal motor deficits, no sensory deficits noted and deep tendon reflexes 2+ bilaterally Sensorium/orientation: alert Motor exam: strength 5/5 throughout and no movement abnormalities noted Psych Common normals: mental status grossly normal, thought process normal, cooperative, affect normal, speech normal and activity/motor behavior normal Speech: normal speech Thought process: normal thought process Results Additional Findings Additional findings: If on a controlled substance or opioids, I have checked an [place] report on this patient and there are no aberrancies noted in the prescribing history.??If on a controlled substance or opioid a drug screen was completed and reviewed within the last year, and if there has not been a drug screen completed we ordered one today to monitor higher risk, state monitored pain medication use. As part of providing excellent, safe, comprehensive care, the following was completed at our patient's visit: 1. A medication reconciliation and review to ensure accurate knowledge of current/active medications, including asking our patients to inform us about any [id number] medications or herbal remedies/nutritional supplements/alternative remedies. 2. A review to specifically ensure our patients have had annual screening for screening for depression, screening for tobacco use, and screening for unhealthy alcohol use. For concerning screenings had a discussion with the patient, provided patient education, and recommended follow-up with primary care provider when appropriate. If patient noted with a risk of falling, they received education on strength, gait, and balance training to prevent future risk of falling. Assessment and Plan Assessment and Plan (1) Sacroiliitis: (2) Lumbar stenosis with neurogenic claudication: (3) Lumbar spondylosis: Plan pain very well controlled at this time from RFAs, TFESIs, and SIJ injection continue HEP as tolerated continue current medications f/u 3 months, sooner if needed
== END 2024-09-22 12:54 | disposition home or self-care (01) ==
LOC: PM 12:53
PROVIDERS: PCP Family Medicine; Visit Provider Nurse Practitioner
DX: M46.1 Sacroiliitis, not elsewhere classified (principal); M48.062 Spinal stenosis, lumbar region with neurogenic claudication; M47.816 Spondylosis without myelopathy or radiculopathy, lumbar region
CPT/HCPCS: G0463

== ENCOUNTER 2025-01-05 13:07 | Outpatient (OUT) | payer MEDICAID, SELFPAY ==
--- OUTSIDE RECORDS SUMMARY | 2025-01-05 13:30 | XMS_ITS | CCD ---
Author Organization [facility] Care Team Providers Care Playground Equipment Erector Name Role Phone Harvey Holt Unavailable NON STAFF Primary Care Provider UnavailDAPHNEY Sotelo Attending Provider [phone] Rumschlag, DO Britt Primary Care Provider Rumcoco, DO Britt Primary Care Provider MD Josué Evangelista Attending Provider Rumschlayamila, DO Britt Primary Care Provider MD Josué Evangelista Attending Provider [phone] Candida Sidhu Admitting Unavailable Candida Sidhu Attending Unavailable NON STAFF Primary Care Unavailable Josué Evangelista Admitting Unavailable Josué Evangelista Attending Unavailable Rumschlag, Britt Primary Care Unavailable Josué Evangelista Admitting Unavailable Josué Evangelista Attending Unavailable Rumschlag, Britt Primary Care Unavailable Josué Evangelista Attending Unavailable Rumschlag, Britt Primary Care Unavailable Josué Evangelista Admitting Unavailable Candida Sidhu Admitting Unavailable Candida Sidhu Attending Unavailable Rumschlag, Britt Primary Care Unavailable Josué Evangelista Unavailable [facility] Primary Care Unava ilable MITCHELL TRAYLOR Admitting Unavailable MERCEDES ENRIQUEZ Consulting Unavailable MITCHELL TRAYLOR Attending Unavailable MANI HARGROVE Consulting Unavailable MITCHELL TRAYLOR Consulting Unavailable MISC, DR GARCIAS Attending Unavailable MISC, DR GARCIAS Consulting Unavailable [facility] Primary Care Unava ilable RADHA, DR GARCIAS Admitting Unavailable RUMSCHLAG, BRITT Primary Care Unavailable YVONNE CAMARENA Referring Unavailable YVONNE CAMARENA Referring Unavailable RUMSCHLAG, BRITT Primary Care Unavailable CANDIS RENTERIA Admitting Unavailable CANDIS RENTERIA Attending Unavailable [facility] Primary [facility] Provider Mani Singer MD Unavailable Lise RAWLS, Andrius Guaman Attending Unavailable Giedraitis , Andrius Vytautlaurel Attending Unavailable Giedraitis , Andrius Vytautas Attending Unavailable Giedraitis , Andrius Vytautas Attending Unavailable Giedraitis MD, Andrius Vytautas Attending Unavailable Giedraitis MD, Andrius Vytautas Attending Unavailable Giedraitis , Andrius Vytautas Attending Unavailable Giedraitis , Andrius Vytautas Attending Unavailable Giedraitis , Andrius Vytautlaurel Attending Unavailable [facility] Care Provider CHARMAINE CASTRO Attending Unavailable CANDIDA SIDHU Attending Unavailable CANDIDA SIDHU Attending Unavailable Allergies Allergy Classification Reported Allergen(s) Allergy Type Date of Onset Reaction(s) Facility (7 sources) penicillAMINE Drug Allergy Unknown [facility] [employer] Other (7 sources) Bee Sting Drug allergy Unknown [facility] Other (14 sources) Penicillins; Translations: [Penicillins] Allergy to substance 05-07-20 17 Unknown Reaction [facility] (5 sources) venom-honey bee; Translations: [venom-honey bee] Allergy to substance 10-02-20 21 Swelling [facility] (1 source) bee venom Drug allergy (disorder) [facility] (1 source) Penicillin Drug Allergy [facility] (3 sources) Bee Venom Protein (Honey Bee) Propensity to adverse reactions to drug 05-03-20 21 [facility] (2 sources) Honey bee venom Propensity to adverse reactions 12-28-19 25 [facility] Medications Current Medications Medication Drug Class(es) Dates [...] 500 mg chewable tablet (2 sources) Start: take 1 tablet by mouth twice daily Calcium Carbonate (Tums) 200 mg calcium (500 mg) Tablet,Chewable Active 600 MG PO Twice daily January 13, 2023 1:00am cephalexin 500 mg oral capsule (1 source) Cephalosporin Antibacterial Start: take 500 mg by mouth three times daily Cephalexin Active 500 MG PO Three times daily January 22, 2023 12:00am cyclobenzaprine hydrochloride 5 mg oral tablet (6 sources) Muscle Relaxant Start: take 2 tablets by mouth at bedtime cyclobenzaprine (Flexeril) 5 MG tablet Indications: Radiculopathy, cervical region TAKE 2 TABLETS BY MOUTH AT BEDTIME 30 tablet 1 12/27/2024 Active Start: 12-02-2023 take 1 tablet by quinton th once daily at bedtime cyclobenzaprine (FLEXERIL) 5 mg tablet Take 1 tablet (5 mg total) by mouth once daily at bedtime. 12/02/2023 Active gabapentin 100 mg oral capsule (6 sources) Anti-epileptic Agent take 1 capsule by mouth in the morning gabapentin (Neurontin) 100 MG capsule Take 100 mg by mouth in the morning and 100 mg before bedtime. Active ibuprofen 200 mg oral tablet (2 sources) Nonsteroidal Anti-inflammatory Drug Start: 01-14-20 take 400 mg by mouth once daily Ibuprofen Active 400 MG PO Daily January 13, 2023 1:00am latanoprost 0.05 mg/ml ophthalmic solution (20 sources) Prostaglandin Analog Start: 08-01-20 take 1 drop(s) into the eye(s) once daily in the evening latanoprost (XALATAN) 0.005 % ophthalmic solution place 1 drop into both eyes every evening as directed 08/01/2022 Active Start: 10-02-2021 take 1 drop(s) into the eye(s) once daily at bedtime Latanoprost Active 1 DROPS EYE-BOTH Daily at bedtime October 02, 2021 1:00am take 1 drop(s) into the eye(s) at bedtime latanoprost (Xalatan) 0.005 % ophthalmic solution Administer 1 drop into both eyes at bedtime Active Latanoprost 0.00 5 % Ophthalmic for 25 Active Latanoprost 0.00 5 % Ophthalmic for 25 Active meclizine hydrochloride 25 mg oral tablet (6 sources) Antiemetic take 1 tablet by mouth three times daily as needed for dizziness meclizine (Antivert) 25 MG tablet Take 25 mg by mouth 3 (three) times a day as needed for dizziness Active naproxen 500 mg oral tablet (3 sources) Nonsteroidal Anti-inflammatory Drug Start: 04-21-20 17 take 1 tablet by mouth twice daily for pain naproxen (NAPROSYN) 500 mg tablet take 1 tablet by mouth twice a day if needed for pain for 14 days 0 04/21/2017 Active olopatadine 2 mg/ml ophthalmic solution (1 source) Histamine-1 Receptor Inhibitor Start: 01-23-20 take 1 drop(s) into the eye(s) once daily Olopatadine Active 1 DROPS EYE-BOTH Daily January 22, 2023 12:00am omeprazole 40 mg delayed release oral capsule (6 sources) Proton Pump Inhibitor take 1 capsule by mouth before mealtime omeprazole (PriLOSEC) [address] capsule Take 40 mg by mouth in the morning. Take before meals. Do not crush or chew.. Active oxyCODONE hydrochloride 5 mg oral tablet (5 sources) Opioid Agonist Start: 01-23-20 take 5-10 mg by mouth every six hours Oxycodone Active 5 - 10 MG PO Q6H 25 8 January 22, 2023 Start: 10-17-2021 End: 01-13-2023 take 5 mg by mouth every four to six hours Oxycodone Discontinued 5 MG PO EVERY 4-6 HOURS 70 14 October 17, 2021 January 13, 2023 9:23am rosuvastatin calcium 5 mg oral tablet (14 sources) HMG-CoA Reductase Inhibitor Start: 08-29-2022 take 1 tablet by mouth in the morning rosuvastatin (CRESTOR) 5 mg tablet Take 1 tablet (5 mg total) by mouth in the morning. 08/29/2022 Active take 1 tablet by mouth once franco y rosuvastatin (Crestor) 10 MG tablet Take 10 mg by mouth Daily Active Completed/Discontinued Medications Medication Drug Class(es) Dates Sig (Normalized) Sig (Original) diazePAM 5 mg oral tablet (4 sources) Benzodiazepine Start: 10-17-2021 End: 01-13-2023 take 5 mg by mouth four times daily Diazepam Discontinued 5 MG PO Four times daily 40 10 October 17, 2021 1:00am January 13, 2023 9:23am Problems Active Problems Problem Classification Problem Date Documented Da te Episodic/Chronic Conditions associated with dizziness or vertigo (2 sources) Lightheadedness; Translations: [Dizziness and giddiness] 09-06-2024 Episodic Developmental disorders (6 sources) Mild intellectual disability; Translations: [Mild intellectual disabilities] Onset: 04-23-2024 04-23-2024 Chronic Esophageal disorders (1 source) Gastro-esophageal reflux disease without esophagitis; Translations: [Gastro-esophageal reflux disease without esophagitis] Onset: 10-15-2023 Chronic Gastrointestinal hemorrhage (1 source) Melena; Translations: [Melena] Onset: 10-14-2023 Episodic Hyperplasia of prostate (6 sources) Benign prostatic hypertrophy with outflow obstruction; Translations: [Benign prostatic hyperplasia with lower urinary tract symptoms] Onset: 09-10-2022 12-09-2023 Chronic Other gastrointestinal disorders (1 source) Flatulence; Translations: [...] at elbow] Onset: 01-14-2022 Resolved: 03-13-2022 Chronic Other nervous system disorders (6 sources) Ulnar nerve entrapment at elbow; Translations: [Lesion of ulnar nerve, right upper limb] Onset: 04-23-2024 04-23-2024 Chronic Other nervous system disorders (6 sources) Carpal tunnel syndrome of right wrist; Translations: [Carpal tunnel syndrome, right upper limb] Onset: 04-23-2024 04-23-2024 Chronic Other nervous system disorders (6 sources) Lesion of right ulnar nerve; Translations: [Lesion of ulnar nerve, right upper limb] Onset: 04-23-2024 04-23-2024 Chronic Other nervous system disorders (6 sources) Chronic pain; Translations: [Other chronic pain] Onset: 04-23-2024 04-23-2024 Chronic Other nervous system disorders (10 sources) Impairment of balance; Translations: [Other abnormalities of gait and mobility] Onset: 04-23-2024 04-23-2024 Episodic Residual codes; unclassified (4 sources) Obstructive sleep apnea (adult) (pediatric); Translations: [OBSTRUCTIVE SLEEP APNEA] Onset: 03-04-2023 Chronic Residual codes; unclassified (10 sources) Obstructive sleep apnea syndrome; Translations: [Obstructive sleep apnea (adult) (pediatric)] Onset: 04-23-2024 04-23-2024 Chronic Residual codes; unclassified (10 sources) Memory impairment; Translations: [Other amnesia] Onset: 04-23-2024 04-23-2024 Episodic Spondylosis; intervertebral disc disorders; other back problems (20 sources) Prolapsed cervical intervertebral disc; Translations: [Other cervical disc displacement, unspecified cervical region] Onset: 09-19-2021 Resolved: 03-13-2022 Chronic Spondylosis; intervertebral disc disorders; other back problems (10 sources) Cervical radiculopathy; Translations: [Radiculopathy, cervical region] Onset: 04-23-2024 04-23-2024 Episodic Unclassified (1 source) Lesion of ulnar nerve, right upper limb; Translations: [Lesion of ulnar nerve, right upper limb] Onset: 01-22-2023 Unclassified (1 source) Encounter for preprocedural laboratory examination; Translations: [Encounter for preprocedural laboratory examination] Onset: 01-13-2023 Past or Other Problems Problem Classification Problem Date Documented Da te Episodic/Chronic Mood disorders (3 sources) Mood disorders Onset: 05-07-2017 05-07-2017 Nonspecific chest pain (1 source) Other chest pain; Translations: [OTHER CHEST PAIN] Onset: 08-12-2022 Episodic Other connective tissue disease (3 sources) Pain in left upper arm; Translations: [PAIN IN LEFT UPPER ARM] Onset: 08-10-2022 Episodic Other nervous system disorders (6 sources) Pain in limb; Translations: [Paresthesia of skin] Onset: 04-23-2024 04-23-2024 Episodic Other nervous system disorders (8 sources) Hyperreflexia; Translations: [Abnormal reflex] Onset: 04-23-2024 04-23-2024 Episodic Other nervous system disorders (6 sources) Paresthesia; Translations: [Paresthesia of skin] Onset: 04-23-2024 04-23-2024 Episodic Residual codes; unclassified (1 source) Other amnesia; Translations: [Other amnesia] Onset: 06-21-2022 Episodic Results Test Name Value Interpretation Reference Range Facility Measure post void residualon 12-14-2024 [facility] Prostate specific Ag [Mass/V ol]on 12-09-2023 [facility] Prostatic specific antigen, diagnosticon 12-09-2023 Prostate specific Ag [Mass/Vol] 1.02 ng/mL 0.00 - 4.00 ng/mL [facility] Comment on above: The method used for this test is Roxy FusionOne DXI chemiluminescent immunoassay. Values obtained by different assay methods cannot be used interchangeably. H. pylori Antigenon 10-16-20 H. pylori Antigen Specimen Description .FECES Direct Exam NEGATIVE Report Status FINAL 10/16/2023 Normal [facility] Comment on above: Performed By: #### F HPY #### [facility] [employer] [address] [place] [address] Cardiology Clinical Nurse Specialist: Guy Ramey MD [facility] [address] [place] [address] Cardiology Clinical Nurse Specialist: Justus Darby MD Surgical Pathology Reporton 10-15-2023 Surgical Pathology Report (NOTE) Path Number: [id number] -- Diagnosis -- A. GE junction, endoscopic [...] for each. Microscopic examination performed. Processing Lab: [place] [id number] Interpretation Performed at [address] [id number] SURGICAL PATHOLOGY CONSULTATION Patient Name: ROSA EASTMAN [facility] Rec: [id number] [facility] ANATOMIC PATHOLOGY [address] [place] [address]. [place], [place] [id number] Normal [facility] CBC with Diffon 10-14-2023 Abs. Basophil 0.17 k/uL Normal 0.00-0.20 [facility] Comment on above: Performed By: #### C DP #### [facility] [address] [place] [address] [place] [address] Cardiology Clinical Nurse Specialist: Justus Darby MD Abs.Imm.Granulocyte 0.04 k/uL Normal 0.00-0.30 [facility] Comment on above: Performed By: #### C DP #### [facility] [address] [place] [address] Cardiology Clinical Nurse Specialist: Justus Darby MD Abs.Neutrophil (Seg) 5.08 k/uL Normal 1.50-8.10 [facility] Comment on above: Performed By: #### C DP #### [facility] [address] [place], [facility] Cardiology Clinical Nurse Specialist: Justus Darby MD Basophils/100 WBC (Bld) 2 % Normal 0-2 M [facility] Comment on above: Performed By: #### C DP #### [facility] [address] [place], [place] [address] Cardiology Clinical Nurse Specialist: Justus Darby MD Eosinophils (Bld) [#/Vol] 0.43 10*3/uL Normal 0.00-0.44 [facility] Comment on above: Performed By: #### C DP #### [address] [place] [address] Cardiology Clinical Nurse Specialist: Justus Darby MD Eosinophils/100 WBC (Bld) 4 % Normal 1-4 [facility] Comment on above: Performed By: #### C DP #### [address] [place], [facility] Cardiology Clinical Nurse Specialist: Justus Darby MD Erythrocyte distribution width (RBC) [Ratio] 12.3 % Normal 11.8-14.4 [facility] Comment on above: Performed By: #### C DP #### [address] [place], [place] [address] Cardiology Clinical Nurse Specialist: Justus Darby MD Hematocrit (Bld) [Volume fraction] 44.4 % Normal 40.7-50.3 [facility] Comment on above: Performed By: #### C DP #### [address] [place], [facility] Cardiology Clinical Nurse Specialist: Justus Darby MD Hemoglobin (Bld) [Mass/Vol] 14.6 g/dL Normal 13.0-17.0 [facility] Comment on above: Performed By: #### C DP #### [facility] [address] [place], [place] [id number] Cardiology Clinical Nurse Specialist: Justus Darby MD Immature granulocytes/100 WBC (Bld) 0 % Normal 0 [facility] Comment on above: Performed By: #### C DP #### [facility] [address] [place], [place] [id number] Cardiology Clinical Nurse Specialist: Justus Darby MD Lymphocytes (Bld) [#/Vol] 3.86 10*3/uL High 1.10-3.70 [facility] Comment on above: Performed By: #### C DP #### [address] [place], [facility] Cardiology Clinical Nurse Specialist: Justus Darby MD Lymphocytes/100 WBC (Bld) 36 % Normal 24-43 [facility] Comment on above: Performed By: #### C DP #### [address] [place], [facility] Cardiology Clinical Nurse Specialist: Justus Darby MD MCH (RBC) [Entitic mass] 30.9 pg Normal 25.2-33.5 [facility] Comment on above: Performed By: #### C DP #### [address] [place], [place] [id number] Cardiology Clinical Nurse Specialist: Justus Darby MD MCHC (RBC) [Mass/Vol] 32.9 g/dL Normal 28.4-34.8 [facility] Comment on above: Performed By: #### C DP #### [address] [place], [facility] Cardiology Clinical Nurse Specialist: Justus Darby MD MCV (RBC) [Entitic vol] 93.9 fL Normal 82.6-102.9 M [facility] Comment on above: Performed By: #### C DP #### [address] [place], [facility] Cardiology Clinical Nurse Specialist: Justus Darby MD Monocytes (Bld) [#/Vol] 1.05 10*3/uL Normal 0.10-1.20 [facility] Comment on above: Performed By: #### C DP #### [facility] [address] [place], [place] [id number] Cardiology Clinical Nurse Specialist: Justus Darby MD Monocytes/100 WBC (Bld) 10 % Normal 3-12 M [facility] Comment on above: Performed By: #### C DP #### [facility] [address] [place] [address] Cardiology Clinical Nurse Specialist: Justus Darby MD Neutrophil (Seg) 48 % Normal 36-65 [facility] Comment on above: Performed By: #### C DP #### [facility] [address] [place], [place] [id number] Cardiology Clinical Nurse Specialist: Justus Darby MD NRBC Automated 0.0 per 100 WBC Normal 0.0 [facility] Comment on above: Performed By: #### C DP #### [facility] [address] [place], [place] [id number] Cardiology Clinical Nurse Specialist: Justus Darby MD Platelet mean volume (Bld) [Entitic vol] 9.6 fL Normal 8.1-13.5 [facility] Comment on above: Performed By: #### C DP #### [facility] [address] [place] [address] Cardiology Clinical Nurse Specialist: Justus Darby MD Platelets (Bld) [#/Vol] 297 10*3/uL Normal 138-453 [facility] Comment on above: Performed By: #### C DP #### [facility] [address] [place], [place] [id number] Cardiology Clinical Nurse Specialist: Justus Darby MD RBC (Bld) [#/Vol] 4.73 10*6/uL Normal 4.21-5.77 [facility] Comment on above: Performed By: #### C DP #### [facility] [address] [place], [place] [id number] Cardiology Clinical Nurse Specialist: Justus Darby MD WBC (Bld) [#/Vol] 10.6 10*3/uL Normal 3.5-11.3 [facility] Comment on above: Performed By: #### C DP #### [facility] [address] [place], [place] [id number] Cardiology Clinical Nurse Specialist: Justus Darby MD Basic Metabolic Panelon 03-0 Anion gap [Moles/Vol] 9.8 mmol/L Normal 6.0-15.0 [facility] Comment on above: Performed By: #### C BC, BMP #### [address] Calcium [Mass/Vol] 9.1 mg/dL Normal 8.2-10.2 [facility] Comment on above: Result Comment: PERF ORMED BY: [place] [address] PATHOLOGIST GAS APPLIANCE ADJUSTER GENEVIEVE CANNON M.D. Performed By: #### C BC, BMP #### [facility] [address] Chloride [Moles/Vol] 104 mmol/L Normal 95-114 [facility] Comment on above: Performed By: #### C BC, BMP #### [facility] [address] [place] [address] [place] CO2 [Moles/Vol] 25.9 mmol/L Normal 22.0-30.0 [facility] Comment on above: Performed By: #### C BC, BMP #### [facility] [address] [place] [address] [place] Creatinine [Mass/Vol] 0.98 mg/dL Normal 0.64-1.27 [facility] Comment on above: Performed By: #### C BC, BMP #### [facility] [address] [place] [address] [place] Estimated GFR ( Camila > 60 Normal [facility] Comment on above: Result Comment: GFR estimated reference range: According to KDOQI guidelines, <60 ml/min/1.73m2 is sufficient to diagnose a patient with chronic kidney disease. Performed By: #### C BC, BMP #### [address] Estimated GFR (Non- Am > 60 Normal [facility] Comment on above: Performed By: #### C BC, BMP #### [address] Glucose [Mass/Vol] 82 mg/dL Normal 70-100 [facility] Comment on above: Result Comment: [place] Glucose Reference Range is dependent on time and content of last meal. Glucose of more than 200 mg/dL in a nonstressed, ambulatory subject supports the diagnosis of Diabetes Mellitus. ADA recommended reference range Performed By: #### C MICHELLE, BMP #### [address] Potassium [Moles/Vol] 3.7 mmol/L Normal 3.5-5.1 [facility] Comment on above: Performed By: #### C MICHELLE, BMP #### [address] Sodium [Moles/Vol] 136 mmol/L Normal 136-146 [facility] Comment on above: Performed By: #### C MICHELLE, BMP #### [address] Urea nitrogen [Mass/Vol] 11 mg/dL Normal 9-23 [facility] Comment on above: Performed By: #### C BC, BMP #### [place] [address] [place] Basophils Auto (Bld) [#/Vol] Ordered By: Josué Evangelista on 01-13-2023 Basophils (Bld) [#/Vol] 0.1 10*3/uL 0.0-0.2 [facility] Basophils/100 WBC Auto (Bld) Ordered By: Josué Evangelista on 01-13-2023 Basophils/100 WBC (Bld) 1.2 % . F [facility] Calcium [Mass/volume] in Ser um or PlasmaOrdered By: Josué Evangelista on 01-13-2023 Calcium [Mass/Vol] 9.1 mg/dL 8.2-10.2 [facility] Carbon dioxide, total [Moles /volume] in Serum or PlasmaOrdered By: Josué Evangelista on 01-13-2023 CO2 [Moles/Vol] 25.9 mmol/L 22.0-30.0 [facility] Chloride [Moles/volume] in S lai or PlasmaOrdered By: Josué Evangelista on 01-13-2023 Chloride [Moles/Vol] 104 mmol/L 95-114 [facility] Complete Blood Count Auto Di ffon 01-13-2023 Basophils (Bld) [#/Vol] 0.1 10*3/uL Normal 0.0-0.2 [facility] Comment on above: Result Comment: PERF ORMED BY: [place] [address] PATHOLOGIST GAS APPLIANCE ADJUSTER GENEVIEVE CANNON M.D. Performed By: #### C BC, BMP #### [address] Basophils/100 WBC (Bld) 1.2 % Normal . [facility] Comment on above: Performed By: #### C BC, BMP #### [address] Eosinophils (Bld) [#/Vol] 0.5 10*3/uL High 0.0-0.45 [facility] Comment on above: Performed By: #### C BC, BMP #### [place] [address] [place] Eosinophils/100 WBC (Bld) 4.7 % Normal . [facility] Comment on above: Performed By: #### C BC, BMP #### [address] Erythrocyte distribution width (RBC) [Ratio] 12.6 % Normal 12.0-14.8 [facility] Comment on above: Performed By: #### C BC, BMP #### [place] [address] [place] Hematocrit (Bld) [Volume fraction] 41.2 % Normal 38.8-50.0 [facility] Comment on above: Performed By: #### C BC, BMP #### [facility] [address] Hemoglobin (Bld) [Mass/Vol] 14.1 g/dL Normal 13.0-17.0 [facility] Comment on above: Performed By: #### C BC, BMP #### [facility] [address] Lymphocytes (Bld) [#/Vol] 3.4 10*3/uL Normal 1.00-4.8 [facility] Comment on above: Performed By: #### C BC, BMP #### [address] Lymphocytes/100 WBC (Bld) 33.3 % Normal . [facility] Comment on above: Performed By: #### C BC, BMP #### [facility] [address] MCH (RBC) [Entitic mass] 31.7 pg Normal 27.5-35.2 [facility] Comment on above: Performed By: #### C BC, BMP #### [address] MCV (RBC) [Entitic vol] 92.3 fL Normal 83.5-101 F [facility] Comment on above: Performed By: #### C BC, BMP #### [facility] [address] Mean Corpuscular HGB Conc 34.4 g/dL Normal 32.5-35.6 [facility] Comment on above: Performed By: #### C BC, BMP #### [facility] [address] Monocytes (Bld) [#/Vol] 1.0 10*3/uL High 0.0-0.8 [facility] Comment on above: Performed By: #### C BC, BMP #### [facility] [address] Monocytes/100 WBC (Bld) 10.1 % Normal . F [facility] Comment on above: Performed By: #### C BC, BMP #### [facility] [address] Neutrophils (Bld) [#/Vol] 5.2 10*3/uL Normal 1.8-7.7 [facility] Comment on above: Performed By: #### C BC, BMP #### [facility] [address] Neutrophils/100 WBC (Bld) 50.7 % Normal . [facility] Comment on above: Performed By: #### C BC, BMP #### [facility] [address] NRBC% 0.1 /100{WBC} Normal 0-0.5 [facility] Comment on above: Performed By: #### C BC, BMP #### [facility] [address] Platelet mean volume (Bld) [Entitic vol] 7.8 fL Normal 6.6-10.1 [facility] Comment on above: Performed By: #### C BC, BMP #### [place] [address] [place] Platelets (Bld) [#/Vol] 268 10*3/uL Normal 150-450 [facility] Comment on above: Performed By: #### C BC, BMP #### [facility] [address] [place] [address] [place] RBC (Bld) [#/Vol] 4.46 10*6/uL Normal 3.90-5.60 [facility] Comment on above: Performed By: #### C BC, BMP #### [facility] [address] [place] [address] [place] WBC (Bld) [#/Vol] 10.3 10*3/uL Normal 4.1-10.5 [facility] Comment on above: Performed By: #### C BC, BMP #### [facility] [address] Creatinine and Glomerular fi ltration rate.predicted panel (S/P/Bld)Ordered By: Josué Evangelista on 01-13-2023 Creatinine [Mass/Vol] 0.98 mg/dL 0.64-1.27 [facility] ECG 12 lead ECGon 01-13-2023 ECG 12 lead ECG [facility] [place] [address] [place] [address] Electrocardiograph Report Signed Patient: Rosa Eastman MR#: [id number] 864 : 1965 Acct:[id number] Age/Sex: 57 / M ADM Date: 01/13/23 Loc: Room: Type: [facility] Attending Dr: Josué Evangelista MD Ordering [...] Marylin Eisenberg MD 0 01/14/23 1534 Normal [facility] Eosinophils Auto (Bld) [#/Vo l]Ordered By: Josué Evangelista on 01-13-2023 Eosinophils (Bld) [#/Vol] 0.5 10*3/uL 0.0-0.45 [facility] Eosinophils/100 WBC Auto (Bl d)Ordered By: Josué Evangelista on 01-13-2023 Eosinophils/100 WBC (Bld) 4.7 % . [facility] Erythrocyte distribution wid th Auto (RBC) [Ratio]Ordered By: Josué Evangelista on 01-13-2023 Erythrocyte distribution width (RBC) [Ratio] 12.6 % 12.0-14.8 [facility] Estimated glomerular filtrat ion rate (GFR) non- AmericanOrdered By: Josué Evangelista on 01-13-2023 GFR/1.73 sq M.predicted among non-blacks MDRD (S/P/Bld) [Vol rate/Area] > 60 mL/Min [facility] Glucose [Mass/volume] in Ser um or PlasmaOrdered By: Josué Evangelista on 01-13-2023 Glucose [Mass/Vol] 82 mg/dL 70-100 [facility] Comment on above: ADA recommended refe rence rangeRandom Glucose Reference Range is dependent on time and content of last meal. Glucose of more than 200 mg/dL in a nonstressed, ambulatory subject supports the diagnosis of Diabetes Mellitus. Hematocrit Auto (Bld) [Volum e fraction]Ordered By: Josué Evangelista on 01-13-2023 Hematocrit (Bld) [Volume fraction] 41.2 % 38.8-50.0 [facility] Hemoglobin [Mass/volume] in BloodOrdered By: Josué Evangelista on 01-13-2023 Hemoglobin (Bld) [Mass/Vol] 14.1 g/dL 13.0-17.0 [facility] Leukocytes [#/volume] correc lesly for nucleated erythrocytes in Blood by Automated counOrdered By: Josué Evangelista on 01-13-2023 WBC corrected for nucl RBC Auto (Bld) [#/Vol] 10.3 10*3/uL 4.1-10.5 [facility] Lymphocytes Auto (Bld) [#/Vo l]Ordered By: Josué Evangelista on 01-13-2023 Lymphocytes (Bld) [#/Vol] 3.4 10*3/uL 1.00-4.8 [facility] Lymphocytes/100 WBC Auto (Bl d)Ordered By: Josué Evangelista on 01-13-2023 Lymphocytes/100 WBC (Bld) 33.3 % . [facility] MCH Auto (RBC) [Entitic mass ]Ordered By: Josué Evangelista on 01-13-2023 MCH (RBC) [Entitic mass] 31.7 pg 27.5-35.2 [facility] MCHC Auto (RBC) [Mass/Vol]Or dered By: Josué Evangelista on 01-13-2023 MCHC (RBC) [Mass/Vol] 34.4 g/dL 32.5-35.6 [facility] MCV Auto (RBC) [Entitic vol] Ordered By: Josué Evangelista on 01-13-2023 MCV (RBC) [Entitic vol] 92.3 fL 83.5-101 [facility] Monocytes Auto (Bld) [#/Vol] Ordered By: Josué Evangelista on 01-13-2023 Monocytes (Bld) [#/Vol] 1.0 10*3/uL 0.0-0.8 [facility] Monocytes/100 WBC Auto (Bld) Ordered By: Josué Evangelista on 01-13-2023 Monocytes/100 WBC (Bld) 10.1 % . [facility] Neutrophils Auto (Bld) [#/Vo l]Ordered By: Josué Evangelista on 01-13-2023 Neutrophils (Bld) [#/Vol] 5.2 10*3/uL 1.8-7.7 [facility] Neutrophils/100 WBC Auto (Bl d)Ordered By: Josué Evangelista on 01-13-2023 Neutrophils/100 WBC (Bld) 50.7 % . [facility] No Panel InformationOrdered By: Josué Evangelista on 01-13-2023 Estimated GFR () > 60 mL/Min [facility] Comment on above: GFR estimated refere nce range: According to KDOQI guidelines, <60 ml/min/1.73m2 is sufficient to diagnose a patient with chronic kidney disease. Pharmacy Creatinine Clearance (Chem N/A [facility] Nucleated erythrocytes [Pres ence] in Blood by Automated countOrdered By: Josué Evangelista on 01-13-2023 Nucleated RBC Auto Ql (Bld) 0.1 /100{WBC} 0-0.5 [facility] Platelet mean volume Auto (B ld) [Entitic vol]Ordered By: Josué Evangelista on 01-13-2023 Platelet mean volume (Bld) [Entitic vol] 7.8 fL 6.6-10.1 [facility] Platelets Auto (Bld) [#/Vol] Ordered By: Josué Evangelista on 01-13-2023 Platelets (Bld) [#/Vol] 268 10*3/uL 150-450 [facility] Potassium [Moles/volume] in Serum or PlasmaOrdered By: Josué Evangelista on 01-13-2023 Potassium [Moles/Vol] 3.7 mmol/L 3.5-5.1 [facility] RBC Auto (Bld) [#/Vol]Ordere d By: Josué Evangelista on 01-13-2023 RBC (Bld) [#/Vol] 4.46 10*6/uL 3.90-5.60 [facility] Serum or plasma anion gap de terminationOrdered By: Josué Evangelista on 01-13-2023 Anion gap [Moles/Vol] 9.8 mmol/L 6.0-15.0 [facility] Sodium [Moles/volume] in Ser um or PlasmaOrdered By: Josué Evangelista on 01-13-2023 Sodium [Moles/Vol] 136 mmol/L 136-146 [facility] Urea nitrogen [Mass/volume] in Serum or PlasmaOrdered By: Josué Evangelista on 01-13-2023 Urea nitrogen [Mass/Vol] 11 mg/dL 9-23 [facility] WBC Auto (Bld) [#/Vol]Ordere d By: Josué Evangelista on 01-13-2023 WBC (Bld) [#/Vol] 10.3 10*3/uL 4.1-10.5 [facility] XR cerv spine AP/LAT/FLX/EXT on 12-06-2022 XR cerv spine AP/LAT/FLX/EXT [place] [address] XRay Report Signed Patient: Rosa Eastman MR#: [id number] 864 : 1965 Acct:[id number] Age/Sex: 57 / M ADM Date: 12/06/22 Loc: XD Room: Type: [facility] Attending Dr: Josué Evangelista MD Copies to: [...] Erasmo Maddox M.D.12/06/2022 2:26 PM Dictation Location: [place] [address] Transcribed By: [facility] 12/06/221425 Dictated By: Erasmo Maddox DO 12/06/221421 Signed By: 12/06/22 142 [facility] CBC AUTO DIFFon 08-10-2022 BASO # 0.2 103/ul Critically high 0.0-0.1 [facility] Comment on above: Performed By: #### C BC #### [facility] [address] [place] [address] Dr. Mars Sanders Basophils/100 WBC (Bld) 2.0 % Normal 0.2-2.0 [facility] Comment on above: Performed By: #### C BC #### [facility] [address] [place] [address] Dr. Mars Sanders EO # 0.5 103/ul Normal 0.0-0.7 [facility] Comment on above: Performed By: #### C BC #### [facility] [address] [place] [address] Dr. Mars Sanders Eosinophils/100 WBC (Bld) 5.7 % Normal 0.9-7.0 [facility] Comment on above: Performed By: #### C BC #### [facility] [address] [place] [address] Dr. Mars Sanders Erythrocyte distribution width (RBC) [Ratio] 12.4 % Normal 11.0-15.0 [facility] Comment on above: Performed By: #### C BC #### [facility] [address] [place] [address] Dr. Mars Sanders Hematocrit (Bld) [Volume fraction] 41.8 % Critically low 42.0-54.0 [facility] Comment on above: Performed By: #### C BC #### [facility] [address] [place] [address] Dr. Mars Sanders Hemoglobin (Bld) [Mass/Vol] 14.0 g/dL Normal 14.0-18.0 [facility] Comment on above: Performed By: #### C BC #### [facility] [address] [place] [address] Dr. Mars Sanders IG # 0.02 10e3/ul Normal 0.00-0.03 [facility] Comment on above: Performed By: #### C BC #### [facility] [address] [place] [address] Dr. Mars Sanders IG % 0.2 % Normal 0.0-0.5 [facility] Comment on above: Performed By: #### C BC #### [facility] [address] [place] [address] Dr. Mars Sanders LYMPH # 3.1 103/ul Normal 1.2-3.8 [facility] Comment on above: Performed By: #### C BC #### [facility] [address] [place] [address] Dr. Mars Sanders Lymphocytes/100 WBC (Bld) 36.3 % Normal 20.5-60.0 [facility] Comment on above: Performed By: #### C BC #### [facility] [address] [place] [address] Dr. Mars Sanders MANUAL DIFF REQ NO Normal [facility] Comment on above: Performed By: #### C BC #### [facility] [address] [place] [address] Dr. Mars Sanders MCH (RBC) [Entitic mass] 31.4 pg Normal 25.9-34.0 [facility] Comment on above: Performed By: #### C BC #### [facility] [address] [place] [address] Dr. Mars Sanders MCHC (RBC) [Mass/Vol] 33.5 g/dL Normal 29.9-35.2 [facility] Comment on above: Performed By: #### C BC #### [facility] [address] [place] [address] Dr. Mars Sanders MCV (RBC) [Entitic vol] 93.7 fL Normal 80.0-94.0 [facility] Comment on above: Performed By: #### C BC #### [facility] [address] [place] [address] Dr. Mars Sanders MONO # 0.8 103/ul Normal 0.3-0.8 [facility] Comment on above: Performed By: #### C BC #### [facility] [address] [place] [address] Dr. Mars Sanders Monocytes/100 WBC (Bld) 10.0 % Normal 1.7-12.0 [facility] Comment on above: Performed By: #### C BC #### [facility] [address] [place] [address] Dr. Mars Sanders NEUT # 3.9 103/ul Normal 1.4-6.5 [facility] Comment on above: Performed By: #### C BC #### [facility] [address] [place] [address] Dr. Mars Sanders Neutrophils/100 WBC (Bld) 45.8 % Normal 43.0-75.0 [facility] Comment on above: Performed By: #### C BC #### [facility] [address] [place] [address] Dr. Mars Sanders Platelet mean volume (Bld) [Entitic vol] 9.4 fL Critically low 9.5-13.5 [facility] Comment on above: Performed By: #### C BC #### [facility] [address] [place] [address] Dr. Mars Sanders PLT 251 103/ul Normal 150-450 [facility] Comment on above: Performed By: #### C BC #### [facility] [address] [place] [address] [address] Mars Sanders RBC 4.46 106/ul Critically low 4.70-6.10 [facility] Comment on above: Performed By: #### C BC #### [facility] [address] [place] [address] [address] Mars Sanders WBC 8.4 103/ul Normal 4.0-11.0 [facility] Comment on above: Performed By: #### C BC #### [facility] [address] [place] [address] [address] Mars Sanders D-DIMERon 08-10-2022 D-DIMER 0.35 mg/L FEU Normal <=0.59 [facility] Comment on above: Performed By: #### D DIM #### [facility] [address] [place] [address] Dr. Mars Sanders D-DIMER COMMENTS SEE BELOW Normal [facility] Comment on above: Result Comment: Incr eases [...] By: #### D DIM #### [facility] [address] [place] [address] Dr. Mars Sanders PROF 14(COMP METB)on 022 Albumin [Mass/Vol] 3.8 g/dL Normal 3.4-5.0 [facility] Comment on above: Performed By: #### H STROPN, CMP #### [facility] [address] [place] [address] Dr. Mars Sanders Albumin/Globulin [Mass ratio] 1.0 {ratio} Normal [facility] Comment on above: Performed By: #### H STROPN, CMP #### [facility] [address] [place] [address] [address] Mars Sanders ALP [Catalytic activity/Vol] 127 U/L Critically high 46-116 [facility] Comment on above: Performed By: #### H STROPN, CMP #### [facility] [address] [place] [address] [address] Mars Sanders ALT [Catalytic activity/Vol] 30 U/L Normal 16-63 [facility] Comment on above: Performed By: #### H STROPN, CMP #### [facility] [address] [place] [address] [address] Mars Sanders Anion gap [Moles/Vol] 13.5 mmol/L Normal Th [facility] Comment on above: Performed By: #### H STROPN, CMP #### [facility] [address] [place] [address] [address] Mars Sanders AST [Catalytic activity/Vol] 20 U/L Normal 15-37 [facility] Comment on above: Performed By: #### H STROPN, CMP #### [facility] [address] [place] [address] [address] Mars Sanders Bilirubin [Mass/Vol] 0.3 mg/dL Normal 0.2-1.0 [facility] Comment on above: Performed By: #### H STROPN, CMP #### [facility] [address] [place] [address] [address] Mars Sanders Calcium [Mass/Vol] 8.7 mg/dL Normal 8.5-10.1 [facility] Comment on above: Performed By: #### H STROPN, CMP #### [facility] [address] [place] [address] [address] Mars Sanders Chloride [Moles/Vol] 105 mmol/L Normal 98-107 [facility] Comment on above: Performed By: #### H STROPN, CMP #### [facility] [address] [place] [address] [address] Mars Sanders CO2 [Moles/Vol] 25.4 mmol/L Normal 21.0-32.0 [facility] Comment on above: Performed By: #### H STROPN, CMP #### [facility] [address] [place] [address] [address] Mars Sanders Creatinine [Mass/Vol] 0.98 mg/dL Normal 0.70-1.30 [facility] Comment on above: Performed By: #### H STROPN, CMP #### [facility] [address] [place] [address] [address] Mars Sanders EGFR-AF PALAUAN >60 Normal >=60 [facility] Comment on above: Performed By: #### H STROPN, CMP #### [facility] [address] [place] [address] [address] Mars Sanders EGFR-NON AF PALAUAN >60 Normal >=60 [facility] Comment on above: Performed By: #### H STROPN, CMP #### [facility] [address] [place] [address] [address] Mars Sanders Globulin (S) [Mass/Vol] 3.9 g/dL Normal T [facility] Comment on above: Performed By: #### H STROPN, CMP #### [facility] [address] [place] [address] [address] Mars Sanders Glucose [Mass/Vol] 102 mg/dL Normal 74-106 [facility] Comment on above: Performed By: #### H STROPN, CMP #### [facility] [address] [place] [address] [address] Mars Sanders Potassium [Moles/Vol] 3.9 mmol/L Normal 3.5-5.1 [facility] Comment on above: Performed By: #### H STROPN, CMP #### [facility] [address] [place] [address] [address] Mars Sanders Protein [Mass/Vol] 7.7 g/dL Normal 6.4-8.2 [facility] Comment on above: Performed By: #### H STROPN, CMP #### [facility] [address] [place] [address] [address] Mars Sanders Sodium [Moles/Vol] 140 mmol/L Normal 136-145 [facility] Comment on above: Performed By: #### H STROPN, CMP #### [facility] [address] [place] [address] Dr. Mars Sanders Urea nitrogen [Mass/Vol] 14.0 mg/dL Normal 7.0-18.0 [facility] Comment on above: Performed By: #### H STROPN, CMP #### [facility] [address] [place] [address] Dr. Mars Sanders Urea nitrogen/Creatinine [Mass ratio] 14.3 mg/mg Normal [facility] Comment on above: Performed By: #### H STROPN, CMP #### [facility] [address] [place] [address] Dr. Mars Sanders PROTIMEon 08-10-2022 INR Coag (PPP) [Relative time] 0.95 {INR} Normal [facility] Comment on above: Performed By: #### P T, PTT #### [facility] [address] [place] [address] Dr. Mars Sanders INR GUIDELINES SEE BELOW Normal [facility] Comment on above: Result Comment: EDU RED INR: 2.0 - 3.0 CONDITIONS NOT LISTED BELOW 2.5 - 3.5 FOR PROSTHETIC HEART VALVE REPLACEMENT 2.5 - 3.5 RECURRENT THROMBOSIS Performed By: #### P T, PTT #### [facility] [address] [place] [address] Dr. Mars Sanders PT Coag (PPP) [Time] 10.3 s Normal 9.0-11.6 [facility] Comment on above: Performed By: #### P T, PTT #### [facility] [address] [place] [address] Dr. Mars Sanders PTTon 08-10-2022 aPTT Coag (Bld) [Time] 29.9 s Normal 22.3-36.2 [facility] Comment on above: Performed By: #### P T, PTT #### [facility] [address] [place] [address] Dr. Mars Sanders TROPONIN, HIGH SENSITIVITYon 08-10-2022 HSTROP 12.3 pg/mL Normal 4.0-76.1 [facility] Comment on above: Result Comment: CUT- OFF POINTS HAVE BEEN ESTABLISHED BASED ON THE FOURTH UNIVERSAL DEFINITIONS OF MYOCARDIAL INFARCTION. THE UPPER REFERENCE LIMIT (URL) OF TROPONIN, DEFINED THE 99TH PERCENTILE OF cTnI DISTRIBUTION IN A REFERENCE POPULATION, HAS BEEN CONFIRMED THE DECISION THRESHOLD FOR MO DIAGNOSIS. Performed By: #### H STROTRISTEN, CMP #### [facility] [address] [place] [address] [address] Mars Sanders XR CHEST 1 Von [...] No acute cardiopulmonary process. Electronically authenticated by: MANI HARGROVE Date: 2022-08-10 18:59 Normal [facility] MR head/brain wo conon 07-08 MR head/brain wo con [facility] [place] [address] [place] [address] MRI Report Signed Patient: Rosa Eastman MR#: [id number] 864 : 1965 Acct:[id number] Age/Sex: 57 / M ADM Date: 07/08/22 Loc: [facility] Room: Type: [facility] Attending Dr: Candida Alexander PA-C Copies [...] Rob Funez M.D.07/08/2022 1:37 PM Dictation Location: [place] [address] Transcribed By: [facility] 07/08/22 133 Dictated By: Rob Funez II, MD 07/08/22 1334 Signed By: 07/08/22 1337 Normal [facility] Folate [Mass/volume] in Seru m or PlasmaOrdered By: Candida Alexander on 06-21-2022 Folate [Mass/Vol] 7.4 ng/mL >5.9 [facility] Comment on above: Folate reference ran ge: >5.9 ng/ml The WHO technical consultation on folate and vitamin b12 deficiencies has determined that folate concentrations less than 4 ng/ml are considered deficient. Free T4 (Free Thyroxine)on 0 06-21-2022 Free T4 [Mass/Vol] 0.77 ng/dL Normal 0.61-1.12 [facility] Comment on above: Performed By: #### V [id number], T4F, TSH3 #### [facility] [address] #### METH #### [facility] , Laboratory - Chemistry and C hemistry - challengeOrdered By: Candida Alexander on 06-21-2022 Cobalamin (Vitamin B12) [Mass/Vol] 369 pg/mL 180-914 [facility] Methylmalonic Acidon 022 Methylmalonic Acid 241 Normal 0-378 [facility] Comment on above: Result Comment: This test was developed and its performance characteristics determined by [facility]. It has not been cleared or approved by the Food and Drug Administration. Performed at: [facility] [address] [id number] Cardiology Clinical Nurse Specialist: Millicent Calderon MD, Phone: [phone] PERFORMED BY: [place] [address] PATHOLOGIST [employer]PLIANCE ADJUSTER GENEVIEVE CANNON M.D. Performed By: #### V [id number], T4F, TSH3 #### [facility] [address] [place] [address] #### METH #### [facility] , Serum or plasma methylmalona te measurement (moles/volume)Ordered By: Candida Alexander on 06-21-2022 Methylmalonate [Moles/Vol] 241 nmol/L 0-378 [facility] Comment on above: This test was develo ped and its performance characteristics determined by [facility]. It has not been cleared or approved by the Food and Drug Administration. Performed at: [facility] [address] [id number] Cardiology Clinical Nurse Specialist: Millicent Calderon MD, Phone: [phone] TSH DL <= 0.005 mIU/L QnOrde red By: Candida Alexander on 06-21-2022 TSH Qn 2.46 m[IU]/L 0.45-5.33 [facility] Thyroid Stimulating Hormoneo n 06-21-2022 TSH Qn 2.46 m[IU]/L Normal 0.45-5.33 [facility] Comment on above: Result Comment: PERF ORMED BY: [place] [address] PATHOLOGIST [employer] APPLIANCE ADJUSTER GENEVIEVE CANNON M.D. Performed By: #### V [id number], T4F, TSH3 #### [facility] [address] [place] [address] #### METH #### [facility] , Thyroxine (T4) free [Mass/vo lume] in Serum or PlasmaOrdered By: Candida Alexander on 06-21-2022 Free T4 [Mass/Vol] 0.77 ng/dL 0.61-1.12 [facility] Vit. B12/Folate Profileon Cobalamin (Vitamin B12) [Mass/Vol] 369 pg/mL Normal 180-914 [facility] Comment on above: Performed By: #### V [id number], T4F, TSH3 #### [facility] [address] [place] [address] [place] #### METH #### [facility] , Folate 7.4 ng/mL Normal >5.9 [facility] Comment on above: Result Comment: Rosa M te reference range: >5.9 ng/ml The WHO technical consultation on folate and vitamin b12 deficiencies has determined that folate concentrations less than 4 ng/ml are considered deficient. Performed By: #### V [id number], T4F, TSH3 #### [facility] [address] [place] [address] [place] #### METH #### [facility] , Coding Summaryon 02-13-2022 Coding Summary [employer]Base 64 CzbenotbXJb7pBj+PGhl YWQ+SQ3SMJYiU68omJTr wA3KX5vMSR1ATYURFKFK DB5TJZ7qyQQ9CSuhH7Pt biAv FfukmPMyPL65BVr2MUV8 bPriGFobmV8hnBHhG3r7 XsKhYG30rN59PYsnZFMx HwK8CnHemqlluJTc W8vhGjXbhPAqIqy+PHRh YmxlIHdpZHRoPScxMDAl EeStjNxiMC8iRx1wPTDz LWNvbGxhcHNlOiBj r8gwQHVnMHgbPU2csIar V8RijZL6UKEes8m3Gv16 dHI+WAXaNTC7wBcuQPhm c043GnHgu7vxGEP7 mMJxUGahFSW2Q86of3Q3 ARJcPGUrIKK6sHH2nL1d rHvsbonoX8RdqGUvVmL4 JHW9fEOnqG7tpFgf hlrzsH3pXbb+N73POC1N KCLMFQ3WVfa9F8TqRkie dHI+WS57ZGVhSD65iIIw tAPno2mvmRz0RbRt OGUoHFQ5fYybBOjuo8Ec ZNXwS88ybDNbw6H8VPSf mUwhmJAqOpIslBF5eF5v GBzbamutb6fmdseq Vusjt2albi71bT66J11y PJohQUZaMOB7DBNuOJUj iCwonm3auW1rFo2+IDxj e9hex2qwwHx0AxHd PGQkitBrfFzeCUK9v4Rw Gg64D2JwuIcbh0KcSud8 ur86bEXvr0D9oXY0UFvi BHOmzG2mOAnqCrN9 VHOaRlLghK95wQElXNwo Pd2peIpsoEapMJ0pVCRa ketsEHAynY4qYCZeqFQb wBilHM6lBMUsrkkc m942XgSyQXG2EYOngXNa C0TqoR3aZcCwCLFcGHKl O6XxmUWbTMzcX018JWdy MpG3RTOydcWxH8Kb PKDpqBbfXlL8i2A1Pg3L n2OygyceANN9WGsqKZF5 ZbN6WwHhEpC0I7DpMyd1 YWCscGqtZD3hV5Kf UXDqwaghfkeniGA5QIUt FAGroH26zZQpLKrkDg3q i9C3y948ECEuDWFcfW21 Ha7ccVuxVULdhQDZ hR7wzbyew2rnmxyqZeMx AABhOCi1SDk5FYMgzXsx DoMuVCF4TiZ0XDI5cQGt xS3dwNcbtqlvlH3d Oyc+L44smH8rUCZ9PBS7 kfymPZBfoxNpRI37DL72 P8KpFurqiZPvbQT+PGRp prLgiDvmMK5eYgLn b3yvb8ZzYFwqD3HlWFRo MTmgAld1LTAiNJH2uHH1 nV7zBTGvMQbrb2B2zLL0 G0IqwvSfmh2ke0ia GEVpZVbdD16zmOIrk2Z6 RYXnjMG0WKRuzTlgRwGo qF97Dqs+WZOtcRfbb6Ch Chrap8ixo7fmnCi9 IjMwJSIgdmFsaWduPSJ0 w2UfEl73P81yATukDOFn TJGfXSArDVXyhYoexi7z qE4kWu9+PGNvbCB3 cRM0mT7aKCPyAjV5UJcy C047VgMtmYZhNkjpt4qz y3oklWw5PuVgYTLbkxWa pTxoLMA7x8IlQf37 F60sSJeqWGNvNCQpFVMk KXIcpXfcng0yxX3zUs0+ JR0kd8vdiy31uW62rFY+ KNTzJEX9yBsmALyv SVVntL6qWSzfJeA1USUs OmCctP52iXSnJWmaPr8l pXnycGfbTD9eCQGmebab z304ZsQjy4bvWLLk eDAhUXtlYEV9Z30mu1L8 FJYaPWNhICP0qTF4dY3i bGlnbjogbGVmdDsgdmVy pShtLXkxIBzsL311 IHRvcDsnPlBhdGllbnQg TsNePVo2S4WyWnt4RLMu sVqmVX1unQEpUIidTj1p bXsrpQarUA2oCWJm eytfr622SdNva4ssFTXk eZHqLDvnBKB2C77mr0F2 MAWyQFKyMMI0nNX9fN6y bGlnbjogbGVmdDsg fuHvtXomGRtkKZwiD964 IHRvcDsnPkJpcnRoIERh zMS9DD50NV89hSPqg2X5 xEL9W8IjNVLpdlcn snujaWG4YDVpOQTwtT57 Bs3ftLkjQv9rJDUxMIC8 AODfxCPsG3LyiA1rFpYp OKXjZJShT5PdaBUh OXjxB905XGrfQrM1QGTi osKkQ7ScKWHarElaZlG7 v6M5Qy3PS4G0FB69GS71 sGXui0L6gGZ8T9Tb UWHxgcvukuuboJU5NENn ELHcyD03Wd9phSccAs2c GMCkYMG5XZXmiSIgK0Bk pY1pGiTmQIBqJHEu Y4VxvESuPQpoB186PEun TbI8JVHbcjHfR6IqFXPw lKpbQoG3j8D4Xk1JGJn1 KP06OY88hCTjh3R9 gUO5L9EdWJFraywvkdaw zAL0TZVcMTBfgW46Mz9c hVnvBr3oTEZpFQL1TCRz eMUyM7RvgW3kNvAf FVQuLXNjT1YvvRHfBWdq T050QGddXlE4BZDiykUd N1UePEXhnCopHhJ8p9A0 Dw3LFBRuKT59VFM6 xLN7KK40IL77I3SlYslu dGFibGU+PHRhYmxlIHdp ZHRoPScxMDAlJyBzdHls ZP8eYz7mCDMlLGBo pCzbqBDiIpKla2noHZHl RAofOQ0ltKglP3FfnZT1 MXSto0m5Hv22A07sI1Bi dXA+CUTpxJH2dQE1 xH4yPlLoTnP7OJigL976 FtXyuXBjFuoji0qke1fa zIi8RaH3GNRjazYgkWiw TPP0s5RzMe58G11q IHdpZHRoPSIxNSUiIHZh fQyegk3xfP7xRk3+PGNv eGG9mWH1tV2wXxDjOeS6 BFgoR369YcVwrWOa Aadpg6par8mgoJb1JiRr XKUwktCajKrvRWR0z7Uj Ho42C3SlpMrtz0CyXnw9 ph79iUAyu6Z4uMK1 B2InIPNramqxgNQebShg ZW1eWGYqzunuJHProR6m LTXqI9g5QdScNfV3NJre H1TgbqD0FYTmqHIy SVrcRTT4G98ov0P9POTc DATlJLQ2iAM8nK9grFqa bjogbGVmdDsgdmVydGlj ZFuaDNbiE722TGZz iEcvWCAquM1zSFInyAQu tNdeMV2xEURswbgfCoNE F6BHI43MDOTMS5OXKxFs WGoCGB66N8FhNmu8 APIeoQuvIO0jxJZmCGme Ff6meWbubMjlYH0fKNSo kkmtDDNrtN0oZYBohSOh uNogCP1pRZForjaa x138UfXyEZN1QUWkkVBn A2KerF5aZwQqCXYeSMSj C8GtaRBiKZrfH115OTdw DiE2EPIxfoQdY1Kr WWKqhVosJzT9c0M5Ss2p RA1tBa1xQOI1VD34PV40 yNHik6W7hHQ3F7JgEPVr pizpunutoTP7XNYv LWFqpF38hJZvBZsqNk7d w4K9q418AEEbIXIytK06 Gl5jjGhzGOOuwHUJeD2b rbyef7jgbwxcFxNp MVBrIAj8YDr0CJJiiNeb KcTxZLQ7RoZ4LIR6lPXx gD8nzVxyxomilQ2hJpm+ LUEqLVGootJ9N0Fc Pgv6PAHjvTeyBE2amWEj CPogJw8uhRbiaMewWT1v FGWwtrhrAAUcdO1xBELw zECpaOxiPT7iINQz asagr939JhUrWVV1KIKg gRIkC8BmwO8cPyBvCFDk SYXtS0DoyBGeIFzwQ571 DXlvAcJ1QFWiwdUp C7ZiUGBliMebPfD0b0W9 Yb7QEUrIFH82IJ71mJPm p3N4kVE9F7FvFFMrntwm gljyfAN7YZKtPSAw tJ14uIGzVOjeTq7ne4N6 x108YVDjJHWwfI97Zp1o lIorWDCfqDIPtO4eyjea y9hvzbqgSdVhMXKs WOx5SDd9EBAsqEqgCnWk CDV7ZoP8WWY5tHGlkF7d oAojptqygP9gCgr+T1A8 U3SpQqplsTY+PC90 IQYhWQ91fNVycSFji0xm tBx1DvDxPUYjAFP6uJgg IWogw3CmYSReP60lmUSn i0Y3SNGecAnpgIIl NvWruKJ9gX8xPIiqblsu d9wczaxhTgump8myuy32 dT39Y61qVTwwPDOyQREz LYAzKQFyzSbryx0n nG7dLg5+SYZbqGU5fKS7 xG2eTvUpGjP9YZsrC055 AcBvnSImWihod3ion1wo hUe3YjRsQBYdyiWi hOxwSNH6t6EuRe25G10u IHdpZHRoPSIyMCUiIHZh iOruit0jvM3qBd0+PC9j x4ugre06yV20aEW+ SIJyYNR6aOktCQapCOPq eI6mEMmjRxR2MEFuNyEd yB64xKZyEYmqRq3wmVpt uFvlTV3qFVKzizff t114UyVnn4skFROrfUWe ZVaiRDX9H16hi5E7AIEp ZVSzEFG8yPA6dN8poKls bjogbGVmdDsgdmVy eOqzELpqEWbpP987UEBi xLjrMtUbzFEkR5sebiHJ CS4kHnrfiRS+PHRkIHN0 uWwnIYxpZOHkjL6l YPXqF1d4SzYnWaG0GDdn U2SftgT3KQVffCIgRNPl xPVHeC9gquhux4ojybcg NxLoMTBrJHk4SJw8 TECflLlhUzBuJYA2CfJ2 NLT8eVKcfW8qwGjhvqdm hH3kTef+RklOOjwvdGQ+ YIJvEGR6gMjfIWdf BZKsiS2oMBZfL5j1WxEn YwA6NXisX4TubuR6HLRr qDMpZKKyfUGKrS1udhhz q8fzbsyfToYvKEDu OLm6EKc4VHWsiVcvKsIp PUI2CxF6BLP0pAQjjV0b sDduwqiecV8gBye+TVJO OjwvdGQ+PHRkIHN0 eKbtKPhbMQTmqB5bKQCc Y1h1XlHhGwS5MTkgI6Ot kcM7SHNvnECsYGYtfPIX eR0idnkqr6dwvbtd FiIjWSDoUKw4SJf7DIIx hIpvKzBtLPU3AeY9BQP0 wSKeeV7iwIjfjopipH7q Oyc+MJQ6QCT2LB07 HZ66H7ErLvymzKIfbMQ+ PHRhYmxlIHdpZHRoPScx PZTqSfZpuSoeRB5xCk0c ZGVyLWNvbGxhcHNl OiB (more content not included)... [facility] Coding Summary HTMLBase 64 ImmhznbnKBx6kAq+PGhl YWQ+XC5HMDMtC35spYAc mC8PI9aKHP1AMVYRXSWR XB1GOO7rjMR2DYzwA7Zr biAv SikgdMLwGG15RVu1QDM6 eIhyLTkymB4fcTLrX8s8 JnHkWI60wU03YYymZSFu LgG6MoSfigeqaYMp L8iePxGwvBAcBmh+PHRh YmxlIHdpZHRoPScxMDAl UjYaeHcwFR5jNh1uYUPr LWNvbGxhcHNlOiBj n1gtMGGgHYcfYE5pcOdt Z7FzxOG2ZMXcr4e7Va92 dHI+DHXcRBO8uYypDNqj e907LfThe7gwVEL6 aOQwVNydGTX9E81cr0D0 ODWpXKRdOYY0eXC7jK6v sLlwoppbD3GgcOGnGiR8 AQP8fJGciA9qbEeq sruoeF4rFnz+Z68MER8G IZUFTE6YIbg8Y9LhMsva dHI+SL79VRYyLT72aTHj rRSgq5twoZk3UwSs QGJuZHE2wWzmCUadl1Su QHPrC27klFUoy6N2RQSj hQcloTAdGeUggPN5eX3n EJesnxojf9ccdway Hloyw0cqqh83mS69T39x RIrvTOQrFFW0TJUpPCRv hCuwxc8coZ1gHj1+IDxj x1azi2njoXr6GnAl LFAwfkEzeJcrKXF6u6Hp Wd17K9JohWyfn0PvZja9 pc44kEOvz2D4vKU4LPix WVCmmQ4pFNabRsG7 OPUdOrKkrI44zVEoOCch Mc4svZakkXvdMJ8nGDJu umxwNFGyhN8uRPAplDTr tIwsKS8wBPAskmmp e075EvUwERB2IROytVSu J8QnwK5jWxZqCQOsQVGb T6NohHUxTHheK129RRtj KsL9QCRjndFzU2Zx MSWhzQbwIrO2o5N6Hl1S p5TcrnieLFK8IByhNTL4 KuI9HjFzJrR4M7SaPyi7 CXCtvTczSF4oX2Xl KDWfepfrmcgbdOW5UOFf RQRiuH99vHZlNEkzEq4x r8T8z627AFDaTVUnxN40 Aq6wwVkkDQPacGJM cU7amtzbp2ehfqrbMsCh CEDqQAn1BHd5HKXudLzc UqOtXOZ6QqH3QXC2eIOw rL7ujUbgatsseU1o Oyc+Y36keC5jHQQ5GUT5 pfqzSZXxvfSgGY43WR05 O6BkQwnfgVQbtMG+PGRp wzNmrHoyHM3xXcQr k4wed8EuLGmuT6DzVHUq ELlyWzy5ZGTkPSE0tVP0 iC6nVHDvHWemc1I3aOU4 J6KifkVnjm6ia0xa JRBnZUzxI00vhMXqj6B6 PVDsfZP7ZZVzhJvlCvRq qE90Dhb+UOEdsClgw1Do Vfuqo5jbk9ulhSc7 IjMwJSIgdmFsaWduPSJ0 s5WpHb38E35rKUqqIPCa IVSpRRLlPLXvhKmhlj5y lT8wFm2+PGNvbCB3 aCE4jR6pAKKqPdT6ORbd P003ZdDceBBwWnthb7cx n0wxwZk9MbLeUCVmbfFz oNghWGP9l3EgVh03 A48mEAfsWDOzMWMfSZLh DOAinZunfa6chJ7bYw3+ KJ6vx4godl51qV89nMV+ EVSkTAD5mQgdDSjp FOQnlW1sKFxwBiY4PXDl AiDfnG52xXCeYIleUv4r lEnhnTnlKK1oPMFipeqo z360TeYqi2arBFVs lIVwYSyqSJN1W63zd8U9 SNIxRLQfXJC8wGR6bW9z bGlnbjogbGVmdDsgdmVy aWpwARvjREzqJ069 IHRvcDsnPlBhdGllbnQg UwXvRHa5P1JtHgl4KWXd qUejBV4dcPAvOJseIi1r hBsemCecPS5kMYHp rsrub325LmVgj5drVNNb aBUpMAwqEOY6K57or3C3 DPGwRCFdUAY9sGP5aF6c bGlnbjogbGVmdDsg zsViiSkcJOdnPXjwN403 IHRvcDsnPkJpcnRoIERh dIN1EH13MA23fRXrc9B0 yEN4H9FbGRQghvyv yykbrSM6DNXkLVCsfK15 Bu9uyJydNg5qJAPmQWP7 KYNfoEWnU2YizD5xYqUq QNJlYAPbN2FdsIIa YPbsR591KRqbCqH7PJVx omUjO4TfIHUnnUsxFiH8 y8L7Aw9NE5U8HA28AB12 zQMrc7O8dGG0A9Kk KPBczlenzaemoXT8YHFu HIBbpL81Rk3ymQzbQj9l VZGiFVE9XWOdiBMeT3We sG9nQrLkHAFiLZRf D7RuwHQbYIinX381IAkw VwB5LTFquoMyQ7DmCWKk sBxzFxL1v4V9Wn4XBYe1 QD67NT58fHYsj8D9 qIZ6B3KqKZAmxqyeqkkd hED5DWGtECOlpW12Ob1h lJbtJr6fNXEqBBK2RARw uVBkY4ZagL1zNaHi FYKhLACtM1FvqXUfIWjn M547BNabUyP4SJOcmxJw T5ZhQFDipYztMkC0j1A8 Mi3JAGWkKN65OTF5 xWO6WB62OK66F9XkXbex dGFibGU+PHRhYmxlIHdp ZHRoPScxMDAlJyBzdHls FN3oWd2dWQXyNTKf zOdbcPFsYsOjs7vyNKMw RJunVX6swUmyO9HsjST6 GEXji2o1Zk31I31rZ7Dz dXA+CFKdaUK6wZT2 hE2kLkTcZhX2BLktK965 TeCdlHHzRoimh4lzi8ag eUb5EtC6KCRijzIbyLox YGY5c1ZtGm79S85i IHdpZHRoPSIxNSUiIHZh sBgijz4bsN6rOt6+PGNv oHI9eDL8vW2hDzZoSxT9 IFepE451ApTfxYRh Ljsix5qxf8dqsKo7TwVk NAGvozBwsKnaWWE1e6Td Cl31A0UxyJgrg2EkYsm2 if96dACzj4D8hEI0 H5PsYNTwzvlijIJlwZef JR7tEDIvghcwLUEulZ8s FXRsW8x7DvMnOcV2HZkp Z3CmiuE9WXCmpBRl AEsuESO7V36hc0A7YRTx XANeJCQ7tVT9nT4wxUpq bjogbGVmdDsgdmVydGlj XAxmMBfmH004DQEx bTciQYVbgR1uNTJttTJc pMsgEV7qVQRocldyJnOC I2XQC04RMPRUT9LJLhBb QKjWYP92O3VvBbn5 CIEnfVqqVY7mfFKoNCab Sy7geNsjwBonSV9xDVGu zpulQNIdzB6dHRUmtSIk sThyUD9eOAPtoanf m969WwVdLRI7KEUhiIPm U4JuyL7kYtGnQDLmMASn L9CgsHEpFAwfM056UIex AjM4HQUicxIzU1Mc KJPncLweCwB9o4B9Av3d OA0qCd8vGUL6TL06RP11 cMRkb1J2qZI7J5EnJUJf rezffylukTG9IIYe GAZkyL72iKFmLKfjBf4s o5H3n915TWWiYGKerB02 Ft5egHwoMHFdzPVCfL1o mnlzj5crieueTmBk QHAeBXv0NRm0AWWlvZox XvDmXGN8IoM1EOV1tHNo nS3kcGvtslvtpY7cGqh+ JLUvDWGesvT5E2Rf Hdj9KTIesTdvIZ5czEMw ZQlaPb9jwGgjaGcmOT0c CXSemwpoAJKkzN3cOKOq fHQauUelKH4kVMPc zkapf861UyEjWYS9NDYd uDXmV5JkhE7iOvOfKYBq KCPvN3EovXNbCYawY223 IEbjObT9QGIyflSh D6UlHMRfxMlcOkY3t8I5 Ce4YAIkKBI25BH85lFQm o4B7iLS1P4HeEIEfnkpk hfodlLC5ONLeLLOp wQ35pNNpZTwhTa3uy6F0 v741XRPqHPVqqY46Cp5e pJxqIRYdqGPMfU8wyhdo p6jjaeeuDiRtFXKt IKa2ECc0DTAquHqaEfGg TOP0BnH8RNZ6hYDzrM5f mNrttwrhrE3jWmh+RW1l olvnofF3EX60SW86 V6GgJxfqqKJgdAQ+PHRh YmxlIHdpZHRoPScxMDAl OmIkcUklVK8qDy0iQJQg LWNvbGxhcHNlOiBj k3mgBEFiUJunRE9rpCoh P1RddAI0LKPwt0h1Zf77 F49nU6ZazGT+PGNvbCB3 zML0fY3xBoCuUnS3 JNfmH099BmUdeCOtCsip o7pun5lbgBi9PeSxLHWp zrPrzDcnLYO3d9LiVl82 Y66lLPdgUUWfYLVa AJElGUHaoDqebv6pkI1q Ii8+DITxnVW2sRZ3oF2p NoNbSyI4TEpwV648BmHc wMJdKmpdG83zQ8Ts dXA+YQYhJex7WLRtwPll OF0zvIHmCEknBq8dVRT7 GhJtXaFzNTruG9PnMWIt nuschlhotGS8NIIt MGOhvU55Dx8unXpnRj4a VWSyFVF8UQDsyZKvB1An uY8mCpKdQMZkTQEcR6Xs oFJjHBigS420DTxh DuT5TZSdxkLlY6XlZCOz rEdjBvG3q5Y8Rx9CrOjn gNKlIO2nUkHyZHs0Y8Rk Blq7SZBviIwbRY7e pSOxIVllQf6atIjosTwt RG7cEOOfvcwcf900TjIu v7syUWLnuTTjCCaxGBW0 U72mr0L4OMMpRRTu OIL1iLM0iV8isPzxztqt bGVmdDsgdmVydGljYWwt UDoqT244QHYhhAhgIrNM Nld5J0PiBtk4DIAe mKktGT3qdVKrWHksCg8y kGgpxVhcVG6yDGWvtzqq k321CoIen4nkPLKuvRAo PJucHWO6S62vo5I0 ZCLtAGOxVPX7zPC4nK6a bGlnbjogbGVmdDsgdmVy xJkbJYefWXezB673MUZb hFtyEr5KZsb1F4Iw Rmf4SVYqrKkrLI3hfEQm ZRmwEw8vnVqhdBsnIF5u ATQarmwja105ZoMvn4sx IDEwcHQgVGltZXM7 K99rn6G8CYDsQGNbJNS5 qVR2rP5egPpkhlauzUZt dDsgdmVydGljYWwtYWxp L438UNInrLulXrBm eWVyOjwvdGQ+VU45bm41 O1ZhBobrPqz6JNFkDPD2 yEW0tG6kKTNqQXerj7D3 sPZ8S6YfamWhat7h b2x (more content not included)... Normal [facility] ED Clinical Summaryon 2021 ED Clinical Summary [facility] - Emergency Department [address] [place] [address] ED Clinical Summary PERSON INFORMATION Name: ROSA EASTMAN Age: 56 Years Sex: MALE : 1965 MRN: Acct#: Visit Reason: Hand pain-swelling; RT HAND SWELLING/NUMBNESS AND TINGLING Arrival: 02/05/2022 14:13:58 Discharge: 02/05/2022 15:08:00 LOS: 000 00:55 Check In: 02/05/2022 14:13:58 Checkout:02/05/2022 15:08:00 Address: [address] [address] PCP: Britt Goodman DO PROVIDER INFORMATION Provider [...] Follow-Up: With: Address: When: Andrew Mckenzie DO [address] [place], [place] [id number] Within 3 to 5 days Comments: Diagnosis [...] for reevaluation. Prescription is electronically sent to [facility]. Return to the emergency department for worsening symptoms or concerns, acute shortness of breath, chest pain, abdominal pain, nausea or vomiting, or any questions. DIAGNOSIS: 1:Cubital tunnel syndrome on right; 2:Paresthesia of hand Patient Understands: Yes - Patient/family/careg iver verbalizes understanding of instructions given Comment: [facility] ED Note-Nursingon 02-05-2022 ED Note-Nursing Pt presents to the ED with right hand numbness and tingling that started Friday. Pt also states swelling, none seen at this time. Pt states a hx of surgery to his right Arm for a pinched nerve 3 years ago. Normal [facility] ED Patient Summaryon 022 ED Patient Summary [facility] - Emergency Department [address] [place] [address] PATIENT DISCHARGE INSTRUCTIONS Patient Information Name: ROSA EASTMAN Age: 56 Years Date of : 1965 Reason For Visit: Hand pain-swelling; RT HAND SWELLING/NUMBNESS AND TINGLING Arrival Time: 02/05/2022 14:13:58 Primary Care Physician: Britt Goodman DO Attending Physician: Lennie Wilcox MD Comment: Visit Diagnosis: Diagnoses This Visit Cubital tunnel syndrome on right (G56.21) Hand pain-swelling ([id number]) Paresthesia of hand (R20.2) Prescription Information: If you have been given a prescription for narcotics, seek immediate medical attention if you have any difficulty breathing or any sudden status changes such as confusion and sleepiness. If you or anyone you know is experiencing suicidal thoughts, mental health, alcohol and/or drug addiction problems; contact the [facility] 02/06 Crisis Hotline -Text 6IQGX mo [phone]. If you received any narcotics, sedation, or [...] With: Address: When: Andrew Mckenzie DO [address] [place] [address] Within 3 to 5 days Comments: Diagnosis [...] for reevaluation. Prescription is electronically sent to [facility]. Return to the emergency department for worsening symptoms or concerns, acute shortness of breath, chest pain, abdominal pain, nausea or vomiting, or any questions. Medication Information: The exam and treatment you received today in the [facility] Emergency Department were for an urgent problem and are not intended as complete care. It is important for you to follow up with a doctor, nurse practitioner, or physician?s butcher's assistant for ongoing care. If your symptoms [...] so we can reach you if necessary. [facility] Emergency Department has provided you with a complete list of medications post discharge. Please inform your shift leader/provider of your visit and for further instruction on these medications. Any specific questions regarding your chronic medications and dosages should be discussed with your primary care physician(s) and/or pharmacist. New Medications [facility] [facility] [facility], [address], [place] [id number], [phone] predniSONE (predniSONE 20 mg oral tablet) 2 tab(s) Oral every day for 5 Days. Refills: 0. Additional medications on your home medication list not specifically addressed. Please contact the ordering physician if you have questions about these medications. acetaminophen-hydroc odone (hydrocodone-acetami nophen 5 mg-325 mg (Holden 5)) 1 tab(s) Oral Every 6 hours as needed as needed for pain. latanoprost ophthalmic (latanoprost 0.005% ophthalmic solution) 1 Drops Ophthalmic once a day (at bedtime). both eyes. Visit Information Allergies: Substance Reaction Symptoms Type Comments Bee Stings Drug penicillins Drug Vi (more content not included)... [facility] Provider Orderson 10-18-2021 Provider Orders [id number] [id number] [facility] Coding Summaryon 10-15-2021 Coding Summary HTMLBase 64 WncxetooXOe0uYg+PGhl YWQ+WN2ABNHwN65lmJKl wK8UH3xKPZ3MYQZIJOTY HR3ZZR4qtLG2QGorT3Fd biAv ZbsdmDOmBX01ETu3VOM7 wGahTNwifF7qfIWjM5p7 CvAgKQ00oP10YWpjELNq LzC0RbIkshiprSXi Y8gsMbXxyFHeGts+PHRh YmxlIHdpZHRoPScxMDAl BtBgcYfvZD8pLj6xDYHt LWNvbGxhcHNlOiBj i5dcALHsCGyoBX7hbWxi V9CirNG5OGGrw4y7Hd01 dHI+JOFvWNH5rQwwCLuy j641DfTlx5geAYF5 qQToQQvvABV4Y20tn4W9 RZSfSIFkLHH4vBZ4dE9g nEomyrnnQ0ThvMEvAtO7 NTA3gJHqrB9knPng xvmflQ4uCjp+U54MEY6L GFOCWF6TJkq5W0OzTbcm dHI+DW45CFRtZC72qRSt fNFph4vliKr7CnJo FRLdWLV6jAuqNKljf4Hk ILVkJ67uaJFvy2C7WFGe nJkasYCxHwWwcIK5cG4d YXriubcfm0gwexmp Lbqvu8xiqt24hB09W84r OWhoNQNaBQD5LYWmCAVk aWhjwl8dhD2aRz4+IDxj n0tgc6uupRr5FgHm MXGoorMrwLynHSQ8m6Nt Nl09H0ExnCoga1GvAfm4 vm76gKIls8Y1pZO3WIrb WKPvtO3zRBbrXhT7 JEBtLgXcxM96gONgGZrs Ej8wtWqdhOgtRR8hMDGv iusfAJWenD0dQUCajNUh mYamVB0hIMCvqpam m166TjYbJGL7OEDrgFGd Z1NzkN7iGuHhJQPdFPPn P2AeiVOcWYpvA721DBym RwY4SPNthwTdY1Wa VJCxbDvgJiI3j9C0By4Q a8ZajucyZFJ5ERvaMSMt GlX7SyDsEsA6Z7VqVjv3 WWPguMxgSW5qY7Tq PUGhhibochtwnFO2CRUk MAOnaR47pTYxHIjtGy3v s9Z8x239LXTcLREsaU24 Br7jaHtgFPNhbEZH tS6tcgsqj4mrbyztMdAv OGPrTPz7DKj3GIMonYtk VbRyHER0WmN9MXZ0eRSz nS2wxEhpyqjatK3j Oyc+Z86dpC3tGXA3UUO6 xgowTBDfvgRrZK13FZ50 K7BoKafljDJpaNT+PGRp iwSnzJrpHI7sGbEk z4vpa0OiACkfK6UpTCKd BUruUye9ZPHzXQT5rGU1 zA0hBWQoSQddx5C2iWM0 Y1WyfaYxgp1gb5xq DKReBVhfI58erGFcl3L5 MPIgePU4FCCbqWggLtWd pX66Jkk+RRQnjEmqq4Sn Soydm1ffk6eivLs9 IjMwJSIgdmFsaWduPSJ0 t5FyGl45V41mXPxgXFAm UCLiTGEdXTUsvKhmdt7l wK9vYs8+PGNvbCB3 bJN2eD5iYURcDbD3ENwi F070PrWmrOBcIsuqb7ux i9kbaJr9UbFyZUUqwsQh yCusKUS1t7OzBb84 H05wMRhbWGSkYRNiMWCj KHEieLwxoa3zkX4tDs4+ SY9zl1fuig87sJ76wQD+ LHAdGKS6bBsbYKei XFNjhP6nRQfnOzE5HRPv CwGovI89kXYoEJtiAn6u aDhtqSyiTT0xIKRfkspn e097OiRrf0rvJOZm aJOqDNspRYI6X20bb0P7 EXHnHDGfLAU0rWK3iX0v bGlnbjogbGVmdDsgdmVy oVmrVKuiMJurM159 IHRvcDsnPlBhdGllbnQg PjLjGKo6C3RuFkb0XWFe cRvwZO3bwQByYGzvKj5z tMlfvYuzYF9lETDv nunxg473GvEaq2fbULDe uSBiUJtiARY6I42jb6I0 MMIwBTLwRXP8jJG0cC8y bGlnbjogbGVmdDsg fpQiyUqfHXrnGSwsK958 IHRvcDsnPkJpcnRoIERh tXO1CJ86BC42vVNdv0W6 zBS5K0PpTZEyival heubfVK4VECePSTopO43 Nr9dfUvrHk3qVPCcUUT6 WZKwyHDnV9WjxE6gMkAn FKOaBNCoQ0WizSKw CDcaD110CJyeBjE7CYZc asEpY4AzWUIkrAubEkC4 h3V8Yo5IT2B2QC31FO58 mNJfj2O1mBF9Z6Am MFYvicqaujpddVB9HQQp SHHldU09Wf1mvCvtWe3z ZLDjHZG8XYDajTTnX1No eW6xZuLcRGFmHUUc P9MagJBiVWvsX504TLcs MlW8UDNephBbI0YzSSRh vGcxBnL1n6A2Vo3YRQi4 VV18HR22jDAme5V0 yIH1F7TyBSXtjffptkux tBJ0LAOdEWKngW54Qn6i vRaeOr6pKVJfLVF5ELTo sQTlX8TllT8lZjHr DCDsUIXkO4VlwBBtIEcp O657AOyoOeN1CDVcriOi A6ZvBZMemWmfScU2w7H6 Qs0FOEFtIJ31TLV5 bGD4JT15EZ93K4FrTxms dGFibGU+PHRhYmxlIHdp ZHRoPScxMDAlJyBzdHls XV2rYu3rBSDhZOUe mVaozFCzUfIho0bhWCQn NQhbKK9gmOtoU5FqtVQ6 HBKls9w7Ae29C29tO5Ut dXA+KUSdmNQ8zFE3 uB7nCsNrBmO2KVfgF385 XwYefRNlWqzpn0rsq7pn hTv0MbQ5XCIgriWejNmu ZDU7p5KmGd84U96q IHdpZHRoPSIxNSUiIHZh cRsqfe9teY1fPq2+PGNv nJV3kTG0fI7yHkEvZlI5 QYuoF249CkOtpTWi Vijbi6trw0wguEn4VpQb YXLyhhYgcZjyPNQ8t5Yz Xa00Y4UulXfvx5YhQlc3 zv24zEXvy0J9zZS6 Q1RmDGEvdxoadRUftVyg VZ8mGCPbpthlMOTfgL7z KJWtS6f8AyStXhF8SDcq C5KhujS0NAIstPNc KUywEQD2C12rd2B4EDQd TBOuXBK0vDN9sM0akGpa bjogbGVmdDsgdmVydGlj GLqoMPgtR863VFVv oHxuMLMenZ5bKPDlzGWb rFzeEF8oUHFeoxslItAR T5PER00LLICWX5RFYnSl YXuPSH74M1GiJlc7 EJEloWwnMJ0heCViVEqf Rp6ukWqnqLltMI7sINUl dqheOTLmkA2dTJMrfHJz rIpeHF7xSUGssmud x129TxAgCWZ1AMOsaJGs I9XhwO1bKfKmEOMzODVg L6NadIVoJWihR797MZwz YzR6MQFllxBaZ9Np NWHzpNslTgF1k3O4Uy3v VT3eRd5bIKB9TE98WZ18 xLGgl4L8rBA2Q8HwQNMl eokxgfzmeQP9ABHs FOGnvZ74iWEnDFomDk5m c6F1n296HNEsBMIyoU86 Dt4zeZvnLOLgmBZMqA9r swtxb5fwoyfqRlIy QCTtNZm9EXo5NYGasIvh IgXuWPM4RuS6DCC7sCPl cP7okHnlijfggI5dOge+ SYFsFDVqmtX6I9Ae Ubc3DLXdkFumZA4rxYEl IOrgXt5atNerpSfcIX9m GKYczhjwCLLxhZ3pTGHq fLQdnWhlQC6iLOFk qirfp392IiPcZDY3VOZn oNFpY8YjwQ8nGqOgOPBe VGQsZ4VonLQkVBlkD455 EUwtRwV6QJTgxhYm E1MwXUQrwIvmEoL7h0Q9 Ti8UHBhXKI35EL86lFLn u7U9xNR5V7WwOARphjnh vhzweSY0DTQsGOMb vR77pZGiRGcpCg8nz5G8 b456EUQpTDDsbF42Se1q dKhnPGIcvYDLeN2gmhuq n8eyyijzMcJdWNKz VPn8OMd9KRQydPqkZoNi YFP2XrL0VDJ5iQRjgF1i gBpsvzuskV9yNdc+T1A8 D7ZmVosszLQ+PC90 REDkER16yWOwwLXqu8jk tHp8CiNjQCGsIYI0yFgk UGjib5ElAHQtJ92wkAEx p9G8OPYduJhwbCGg BvNdiSK9dB1uBUxyjnrb e6vgwqpaBxmrq6uofr02 aH67O82yVPbsEIKoIGTx BERfFZSaxNvnen0s vU7iNl0+NAXxsDF0iIY9 bA4cMuTlQxZ8VJxrV107 FkNohFXzEmgdc2lbt4on mVw9BpIbOHTvhkBq oHxyYIX5z1OzAo97O36m IHdpZHRoPSIyMCUiIHZh uItnvq2ywI2fIq6+PC9j v5rhtr18gP21cWM+ BCYsBZX0eVtoKTarQEUe cD4iZQkcWdH8VLNuObTj pH70hQGrPTkaVs1ghXsi jWrgEV1sHZRnsweg q736RcDhh1zjDTRieQRb AFamDUJ8W76uh7K4WEAn ZVXdSUC7mYY0nQ1rjFcf bjogbGVmdDsgdmVy yGbyXBtpFIcqR998BUNs dDnnJlXulIUvZ6klrtMV PE8uZwfltHD+PHRkIHN0 oEilYAuuFRMevR1r YGLiA6m3VlZpDwE0XWoq V0LujsW5AGDmfNNrFOGg hZVDlV0wmreko8ewahfh SsEwOYEsTAy1BBp7 QWBybZdvCxEzWIQ4HvT4 GFH8qMGvxU9ayUogvayu iO6xLxg+RklOOjwvdGQ+ BJGmKAJ7tWaeYCqg IIMiyN7sFCGtS2j2IbNj KuQ1HCuyX4AxsmL7FPCi uCQyUNSjbEPQqZ4wqjfm q2pouuafAnTvYMZv AAh2CAb9LJMvlCavDrSq OAT0RrI1VYK7nAJgeK4y zGlozrskcF2hTsk+TVJO OjwvdGQ+PHRkIHN0 dQnnYKzvNJTinM6mPJEz C6s4RzMaLjG7FCbxS1Yu bxE8QEPocYVjWUMkjUXI rQ4ppafyy0gceilj RrLrLDDkMKz6SPs4VWGc xPuzKaCxZRI2DwX9YEE6 gXLoeZ8jxFzxgsqcwU5u Oyc+WYH7LVX7HV32 EF63S7GhWcokcRVkjIV+ PHRhYmxlIHdpZHRoPScx HSPsXmEyhWspZL7mMn9c ZGVyLWNvbGxhcHNl OiB (more content not included)... Normal [facility] Rad - MRI Reporton Rad - MRI Report [id number] [id number] Normal [facility] MRA Neck w/o Contraston MRA Neck [...] study performed on 06/22/2021. Final Dictated by: Mani De La Torre MD Dictated DT/TM: 10/12/21 7:40 Signed (Electronic Signature): Mani De La Torre MD 10/12/21 7:46 am Technologist: JERRI [facility] Coding Summaryon 08-30-2021 Coding Summary HTMLBase 64 XsbkrzmkAWj3uTg+PGhl YWQ+CS1JULHoK65atBBj lY1CR7vLCQ7AEWXAIOUM ZC6JOH9emVT6ZYzhV9Rr biAv QxpqjTDjHX95UBb9SEF0 oDwlTUxwtJ9eeKSwC0z0 SmRiQW34eZ75BOmoNALo NvY6AyYvyeoykDMl L0qaIeFhcKUiCkz+PHRh YmxlIHdpZHRoPScxMDAl XcCikDusMG5uTz3wQMKc LWNvbGxhcHNlOiBj a8euOVGsZAypPC5gfZnn T1YdbPU0HXMiq7h6Ed30 dHI+HXDdTAW2xVinZMqy h844CmYlw0kaOXI8 pGHuYTxsDVH6G50re1V7 UAZrCIPqQOI7nHP6hX2z nIwvqmnxW9CkySNhCqB6 PQG7gVOtiP1jxUbr xnetwY6kCfh+B31PFC2T MCUFFC2RGom3J6AhXcws dHI+QS79RRBrHZ93lIVl cIXyz7fbdLw1VlHf MUTfQAG5sJuvXFghs7Wf CRJlE00hpYOqy2I9MALx qQeplCGoXzXpqFL3aP6e TDgpqvkga9hkcuop Pmyay0fqqn12fJ24Q83l ZIohMCEbBFE4BJExLSLp tYpyye6hdE6eQb7+IDxj c1wmb8ibiPu4XfKs EFDyubVuwFjgAXC3a0Ok Es21I6GhoToab4McUhq0 sm29zKApa7M4bQR1EBkg PGZpcV8yYHwmDeC1 QZQeIpVumX28wMIpWNnu Ek4bwOsvwXtxLL4iTFNy ewuqXSIgmD2sFJVyoRGx oQxwVG5tGPFeewqp q798UtJhRMR0YFNkuSNx C3ZpqQ6rFtPfVBZcYNYf P9LpvSVxNGksB380YOkj JoI7XUXglqRdN9Nk BKZhgBldFdP9w2N7Hh6N j3YelehdJWI4ESjrTPRa CxHeIhWhZkQ7F9IgGmg9 GNAhoObfPP2iU9Ze FYDzongusgrxcQY8PSHy RPOttM42zXFfOQetNd4u w4K6w267TPFjZWZrkD16 Ib4dzChcYYLjqIYJ rP0wgjush2usfsyqMfVv YMEaXDk2KAn7AFGlgUvs HwTsGMF9DzD5GBL5xTJn lF4raRnsavsbtR3l Oyc+P59juZ8rNKZ4LOR1 dbgzQWPphsJmFR74CT64 N7SyMnyitTRwtZM+PGRp osHeyXnpEG4lCxNu t0qbj1PvCEswA7TlUYFt ALtfLia8XKWaIGD2qAC3 aQ1dGMSvKEblb4S9dTC8 R1MjiiAwym8bw3ve BZXqHZuaW96jhBRzh9F7 WGQbmWA2WBAreMcaImCc dP70Rmr+DPInbJjpv7Pc Pwjkx4pfv1detEh4 IjMwJSIgdmFsaWduPSJ0 r7RnAk20O39nUQnpOUCe EZDlERUtFSKfeKlqmv3x fT7aRe5+PGNvbCB3 jOW8mH4jNVEzIaC6YLua Z088MdBooXMeMlfzx2mk k9fhyTa8CqWuEEQlskBs zIazDQR6j1LmYp40 Y41bMRblLGZyIZQpTDHq YIVtnOfuso8dfJ0gQt6+ CK5qj9gouj11rR31lTN+ UVDuRBV7qGwdZKlg OYFnjP4vTNfqIgA3OFIy LbWxiC12pZJkKQkvIj2j rDteeLstXY5qUTIfedhd t736KwYgv2pkIUSb vAYjFGtdHDH0W39rm6N0 NFAkMMApHEN7bBQ6cU2f bGlnbjogbGVmdDsgdmVy eAdvNLabHAczR149 IHRvcDsnPlBhdGllbnQg KxOrIVx5V4LzAeh0YBLc eLhnLC9cbZZpAFaaCg7t bVelqSdwFM4kXJXz tffrq355QmCaz5yiTOYd dPXyPHwbYHY2Q67zd1J5 WWXfGGFvHCH7vGC9rR4t bGlnbjogbGVmdDsg kyRevWnkSYknSZgeP303 IHRvcDsnPkJpcnRoIERh qWR9BF57ST11wXUid9X0 cBE0X3YzYSXjuyfm mcjmqDS3AZXrLMUlvK56 Uc3wfQhiMh0xFQVpLKY3 ZXIzhDRvA8LrjE9lUcVz UMDqXNYgX5UebPDy TQdzA903GQulWeU2ZMLp uvFqO9RcMISeiVocIkB4 o3C6St6PV8A0JR78BG81 xHRow4S9lJM7X8Ex IRXbimbnawqmzPS6PEKg LPCeqX39Ok9gyVxaVk0n QZHoTUK6BPHzjBCfO1Ki pJ9eSgOkXCWbWMOk Z0BozCLsKCetR459QLly FvG8NREccmOuJ7JxHFAc eHjwAxG9q5H2Ay8SAIn9 MM43AZ52zQMpe9J0 aXM9P8BzFFEgccautmrc kBK9HPVgGRCwqG52Uc6b uNmzRg5iOUIxSWN8LSZk pOFcN8FabH3sFsEo LKRgIMDoD1EbtCVdXUkr P730OApwFgJ3ODWaprZe T4LhMIEokLdrDbL2j3J3 Bp1DJJQhGV29HPM2 yRH7XN00KL77W0CoKbmq dGFibGU+PHRhYmxlIHdp ZHRoPScxMDAlJyBzdHls ON1uCd8oGWPqQLQt mNsgvNCdSfFol0ckNCZh PUtaPW4hrBsuK8EgiFL9 QDJgz7n6Mc97N34wU6Ho dXA+JUTyjEQ1aIM7 fX7rVfAzXrX1KRqrV709 NjPeoBFpBcfpq4ixc1hy mJl4FcY5STNrekNzvKnw TTN5s8TxFb30Z84y IHdpZHRoPSIxNSUiIHZh rJqwmw3baA7oMe7+PGNv mMC7rZC1jB8oTsDiCcZ6 PHurQ842OrJcwJYj Dljka3bwu1vdwZe2NsSz QOXqjpYzyDiqVDI5y7Vq Sm73U5PprZctp4YdTql6 ua16xQCbd5Q3fHR5 H7YlOJWfjhctcUCffXkw VE2sRQVlybokRGHadX1w LIMeJ4c0StOzYgL6OWga R8KimoI6ZTSfpURk QTidWXU0H60uk8S5MSHq EHCzVCJ2cUQ8sF9jaOup bjogbGVmdDsgdmVydGlj JWibYQlyW500UZQn gKeuSROqvG2oAVBtuVMr tVvhPA0qAVWcxmwoGnTR E3HOF06HWNWWJ0GHRpRt HQhRJS84L5BeXdl9 VAXntKnoQV4lhGMlDNpt Jq4hxQuqaBoeMF5lCERu dwfsXAGufF6uESYmuKSo gUomWM8mLQRlzvkj k286GjSgMGG6TJOfmPZn W9IqsN4wJjZcYISwELBb M7HstRLuSZyiQ503ZLtq MbP4OPPfeuAiV4Zy LXVroPtkJbP3r5K3Br1q DA2lGv4gJUB1OK95BB42 sQTyx4C1tVW3L6AdRFMw iusphvjzxCZ7NWWg HTXhaE50aMEwOModFz4i b0D1b158MENxFDLepS38 Zh7dsHqiZIQmjUNIeB1n ihodz4dobueeUlAm GFGsJOn3EDu2ORUwlAmp MpBsNKT8HsH9KGO0cUJp uX6igOsyutsjeS2gRbm+ KRBpLBWgtzV8B0Ia Npb9AHDspMmbRI5lgVMk OWkbCl0naIsjaCavPD4e JJZhsgqoWBTgoK5gUGAj wMCtnJimDF6mPZTy byynr801VtPqERH9RGYa yADbT8PkvJ2jDmYfZQKm KKQjB2NqbFPuSEzaR102 RJhrUsL9YFGxlwKn L9AaPRPeaMqbMiN9l0Z4 Sj4VZChRBQ22GF92hWHy x6X3sJH9B4ItFFVmzovz nnchyNP4GSZrFZZz gJ78mLFuDRwnOr2pw6D7 v422FUJjHFDyjT32Tb3i nGkhIQThzBBGhE5notfw c5kpbfxeGvZpZLIe DFk4JTn6GIVswSbnBqZn YFA4EjG6GQM2cNDgjI0q yWafmdjjeP8jMsn+T1A8 G3MaBmipfOP+PC90 MLYvPT89jYBbzAWrt8xp vLx8DoGtIQOjVQV0pDye ZMcwf4AwEMAnU24jzISj p8E7ORUunSckbCOo HnHhdCP7aQ3sEZwhtoml l4zxuvhtKtnnb8cldn23 vZ94Q74aQOtvNUJfOGHc SBOxCLNimKwwgo9j tV2pCh2+TVUcqME6mVD9 cB3uKuKaZnD8PThuL251 IjJrsCFuXthzt0xpy6uo cEu0SxTyYFYdemNl yBlmRCG1v7IiZq70H78a IHdpZHRoPSIyMCUiIHZh pGkvpx7mpS6hWz9+PC9j z5esgt04zF38iGS+ QVYxPFG1kIzzWXzhTWKa iG7gXLmyGpW7IJEgRrLd bM58kTKoOWwoWy6akWod uCwiML9cYKJvebwh t830DsPvk9biNGWwkRXu XHstOYS0O62lq3Q5YVYa VZIeYPW6cFX2iQ5rjQyn bjogbGVmdDsgdmVy mEvrPRxqQBnjP408HNRp bGajEmBbzAIvM1vmxgZF PR1hWknyfSS+PHRkIHN0 iQgkRKilGOKgdC7h ECRmM6h6NlDnKrP3NFtc F1PnofE7RVRvjHKsTAUq vLSTdQ1iuquyb8ezcmsq RiBiYHPqTLi4PHx7 OQDzxLazGbPoEIM9PeI2 GEX0cNAlaL7avXtrjjdo bH9eHjr+RklOOjwvdGQ+ BLTbFMU9pLaxUGfv XIVswC9vAFIzR1n6VbXc WpY5ZJllB1GxnaU0JGYh zJVmDBRuwGNJhU3lkyli v1oyggroFuPdSFKn NNk6OVf7VOOulUolZqHt ISU9KyR5PRD4yBGncC3v wDymjpcepJ7sSpx+TVJO OjwvdGQ+PHRkIHN0 gPkdLAaaAKAdeS9jHMYd C5o8GnOlVmK6ROjlY2Ua qdR8CSJuuVEvBOTtlGLL fR5dowmhm2cuhdub FkRkBBKeWPi5ITp4DIHv xGcyDkNzLDZ3WkB6ZAT3 lDEvoS3kiRhpihbcpD6w Oyc+WTQ6CXK4LZ68 ZP43O1VdFalrxMSqrHL+ PHRhYmxlIHdpZHRoPScx GBJuDzFjrEclAJ8hVq8z ZGVyLWNvbGxhcHNl OiB (more content not included)... [facility] Coding Summaryon 08-29-2021 Coding Summary HTMLBase 64 PvzjkcmzOYz6dWu+PGhl YWQ+LO1RBDYlS86hhMDl sF1KI4yUYY8DSSNNGYXD SB9QMI2cvRV7QCaxF4Qh biAv KpmppFIxSF55BJs8PST2 mPtyRIqmkM0lxFLnL2x3 RlVlXH65bP92CItsLDAu UzE4CaDzpypnyOIm C2wjRoMhsKXiKmw+PHRh YmxlIHdpZHRoPScxMDAl BxTzaRrgQX8xTh7hGHTy LWNvbGxhcHNlOiBj x4jeCEKlRCugPH1quMln X1NeqJF5KNBqe9y7Pv84 dHI+PSTdWYO8eYxhNVmp p265PaBhb4nlYES0 iTXnXGxuDFI1V37gb9W9 OSYeKHKtQKR7yQY1cN2l zJflapoyA3CdpCZoYdW1 SKQ6uFRrmN4jjRrw cyugsB4fHcr+N78UFU3L CFSSGD0LBos1A4WfXknw dHI+NA55CPLbCA52iSWq hPRto3owjHm5VjYx ABWhZQX8gEvfGYkpd4Ln DGJyP05fyNVno6W6PQFu kEjrtWHrQqWjvZX1rJ3k IYnwwemgm3ujccdm Zquqm6hftb34wO79W75g XNuyWAZmDHP9WPLuALJs lJmabs1bpY1sZt7+IDxj u1ody2sowSw3OxJr RVScjzZpyIhxCYP7r0Vf Cx78E9FccSucs4FbDdt1 hy79iUCzp9X8sYY5JNce VGUocS1tGYkbXoX9 PEYuTmJmfG21yOMiSSgw Qr6ivEdknHawYZ7xKANn scysANBrnY2cOCHojOXy uTdlRX9jLOAqhibg s635BmMuPDS3PJDpqOTq I2HdtN1rXmQwREEgDNRj O3CrvSQhWBrhV385OEeg FlL3QTRfwcMqH5Ef JVEonPleNqV3f6J6Li1R o3IgnsvzTMB3GVnnDOUu NrQaEbSgNzO3C1WnNxw4 LPZtsFkxKI4jC2Qo BTIyxtjqpzhpjIZ8TXTc QQCrvP03bGYtNIqvQs7k i2M8y268OKCbRRZrlO87 Wc0rlFbvKMXeqQEF xZ1cdzaoc3syupucSuUu VDIwVVb5CQz4XSDuxAom FhVdFZL0GsT6MVZ0tIKr tI3wwXndohnanY6h Oyc+X22hlO6vZCD6WDU2 cwblQPQeyvSzSG03ZM29 T9RrLixctYXyaGO+PGRp ieAecYmoZJ1oHvKs f7dtz6FySTkcD8RgNQZd USlnZnw6WTBeDNB1wLV8 cQ1hZDBrUPyut2E7aYE6 I5ZcaoPuet4uz9sh MHDkAAjoQ09ioKFvs8P5 OHEumGK6YBMmpEbaEfNf nP72Xgi+MXLanJltf7Lg Vngmz7dbe4ghnKe3 IjMwJSIgdmFsaWduPSJ0 c7GyKy51Z87cBLioIHYh WJHiYSXtHFDwvMzxpf0d dS2lTx5+PGNvbCB3 lZT8tD4mUTNqDqJ5TEmo E752TqVizNDgMokmh4in c1gflVd7JcKyCIFulqFb vCodKAB9a0KgPy86 Q46uCVkkSNMcCBOqVPWn NJWyjYhmkt3gwI0rUd2+ UF2pr6dxnp99hN58iLC+ CKVjYAS4fVjaUVvm KDJbiZ9wLCefZuT0HYLl VsXsrW10zKGeDMpqZo1o aLtzlIwcWW0wTOOetnhr t754PkPqp4geHEEi zTUyCSjnPBV2Q06de7N8 HYGvPGBtBKB8tJA4xP0p bGlnbjogbGVmdDsgdmVy cMugRUtpWPfiE207 IHRvcDsnPlBhdGllbnQg RlAdWVb8Q0PuSlo9TWKg zAcsNY8gnILkQZlvXp6p cDlbdDclLT4pOWHi btswi534EbEnn7heXMXc mKWuWOpnYAK5Y18qx1G5 SVReWHQoXQJ9kJW9yC9z bGlnbjogbGVmdDsg gdNczNepPQwvRHipG345 IHRvcDsnPkJpcnRoIERh rYT8UX55BA93lKWou2D9 lZS6X8IyEYEnvhwq gnazlXE5NKKiTXIxoT08 Xw4mmRgnQn1hMWVxXCA4 TLJwiXNbB8VobF7cGmGt TPSjREBsG9BbnBUe XQknL556PKmkEyB7ZCJh gzZpK1KfAEMwkQoyDjA3 m9T9Ic8ST1Q5XQ74DR99 tKLhs7A6rTB4M0Dz LNQozfqpashtwNJ3GLIr JZHbyG88Vk2mxMgtIl3e NIXaBCZ0AYLbdPKpD8Nj wC3vTmHhTWNkBSDu W6BjuERfFTjmD302YHky ZhV7RMUaktMsY4ImBECp bOuuYaO9r9A0Rb1HJDa7 VI12KU53iRRjr7Z6 fTR8D2IfDTBkitashpfk lDQ4DVQgIHVpsN41Rb9o jEumEv5nECKyQQL4AFRm mJWiS9ZqcL1nToNe KUHbZNReF1TqvXJnFFoy Q347NHojLeT6FDKnqoZm F7GnYTIxiQwyXvM4s5F0 Ep5HAPDrJM22XAZ5 kHI9MJ86PE81H2JpLpzj dGFibGU+PHRhYmxlIHdp ZHRoPScxMDAlJyBzdHls AN7iEs3yKLRmELPg uThjsPAlXpNop1wuWKCf DTnmEG9anApnC9ZwfTA7 NBIsq1k9Ox74J63tK3Dv dXA+WDDpyQT0wSB4 iG5nKjXnBbD2ODycY475 YbMjmTGuTtrkh9pst2rf mUk8UdD3APDsruAjrMpx FGI0g4CzXr39W69i IHdpZHRoPSIxNSUiIHZh pNgcwh6oxL6gYv2+PGNv nNG7eMF4mH8eHwJvEmF7 PGvjN288MxFicPUf Doggc9nfr9nijUr0XrGs QDHmftFooFucLMW0j1Ya Op83H7GwzJuid2DiGgj1 kg45nJAlg3E7gBZ2 V5BjNTQxyflriZGawKnh TX7dYSNsltrwEFIktN0i LPVyE1b9GrTeVuM2ZJxd O7GqmvY1ZVDqiKJg KFibCBD2Z93us4Y3JJFe GTRoEXW2rLX8uA6ewGxz bjogbGVmdDsgdmVydGlj SZqvVYwuA336PYOz eKqvYDOsrM5gVGYitJMz vMxgRR1cUWMunwszDoOR R8KNQ39MPCRWR2TNGaAa WXlGIS41B0FfIqx4 AHAjnCzpDM8deIXcEDra Ad8ylKgofNprLR9xWGYs jwhkHEVubF8qZBVpaYCc hZejIF6mTCNawsae t395XoXdFFL0RCJjbOUe Y7UmaS6xUeQuYVZzZGPt H6AvyBSgIEtrL076LDio VkH5BTEkdnYpT1Ip HVTfyKofCgO3n0U7Qo3o KC5sXu8hZCA6BO77MX92 eWZzc2A0tOU4T1ZtKACv asbalqsgfFK8TQUl TMDicV64uPObGHmpEi8w k0T0b871UNJgUISpuB96 Le4ejElkLKRyvOWUgJ8n yvdwc3trjaqgIiRt QDUlYKa9LZk7LVHzvXuo DuFnYUQ7EhT2VOH7tFMy jE6znSdtwvkcdI4gVey+ ESBuAKPlabV2O0Zw Yea7DFNyzJuyYL9dgDEa UZktOl7ydLywvPosAX0h PBAgedjqQCEopK2iQCXg zVNapWmiLT3yJYEf niodv413AuBcXWK7SDMe uBQuN4JlyZ4oCsMiSYPj DRMoF1GzzUGsSJyeK638 ZOjyTqW5UQPemmQx J4YiMMHwfHeaHeG7c9H4 Je8XHEzPQW98QQ36dXGl i9N6bHK9T5DoANOtznwd rsllsQD0VNVeKHSa sC14yIFhATnuNv2xo0H0 m067JLZbZNPmhY21Uk1w hVrmLYQipMGSoX2rguag y8cruhilQeFrQEWq GQh4UCj0XLDdrKztWxEz LCJ7HsW1HXN4hWValJ6h sEfsddqpkS2wVfm+T1A8 F9JyEzqjsSP+PC90 YSAzNU95kCGjkPQsq2ov wOq2ZoZiDUBzFIO0aYfa IBode0HnIEAjW13oeFKv k5H0HRRopMemmXBa AoTbnVI2mL9xTFmmgvnm l2xuprdwEzgbs7ehce20 uM23S40uGQebPGVaBJYm ZNCnEKBfjRmwwy6y jB1gAa2+RHMpiRP2iDB6 zR2eRsVmIsX2HTuxQ739 TnChrSCdKiugu1vei6va vKe9OwOwGFGnyvPt nOwbEJE8f3ZyMp68I45l IHdpZHRoPSIyMCUiIHZh hIozra9nmO3eUg1+PC9j i6bdrf73cW64yWK+ CDQtPFX3bNmaYAzdLZYt lU5mKXuvElG7TSYeHdGr qZ36fMKfYDtsTv8qeCgj dYbdHE6cKSYkiqxc d446VoSzu4zrLYIlhGXy NVkyFEU5T93yt5X0ZKCz QSQfSOJ7rIK3bU5iiDlh bjogbGVmdDsgdmVy bAnzIIepWUetG636LOMw hEcaWlWmiIFiE2ncuhOE JA6aNopzdZH+PHRkIHN0 pTdhFGzeJSIkpH9r BLCfP8v1MqXzKgQ2XCzp Z5OwyfF1EFVksHWvJMUl aVTGsK2qfwaoh1ljwqip YdNoIEIbUKy2OSr1 WFFuaSqoOrEoLLB8RnE2 OON2zGBpxY5euMuwtcey hD0sQfg+RklOOjwvdGQ+ XZFiQSV2oTvhBCcs GHVwhX1iTQUqC0t0EyPm AxG9XYoiJ5MitcH7QXAq mIXqWOSfaZEXzM8ymcjm j1zurqvfWdSdVNBh RCj9FYs5BBUprSczOhNr GMU0VmU0KGD6uHRcrB8m sRfjttctlG0eWhd+TVJO OjwvdGQ+PHRkIHN0 eOsuHSzpGSIuhL8fOXOn I4p5TaPsHjX7RRihD0Jg wbU7VSIbpGAdQGVqsZSB oH1imppei5ujbiyd PzBjHZRbROe0AKk9LSLj rOfqMlCjQMP1CdP8SXA8 mWIxpS0hqEsjalfdkJ1h Oyc+RLK1JHT5OL08 HQ12Y6ZsYbvsmQNznYN+ PHRhYmxlIHdpZHRoPScx UIIsVwOulTbwNL6nIn3z ZGVyLWNvbGxhcHNl OiB (more content not included)... [facility] Provider [place] 08-29-2021 Provider Orders [id number] #1.00OTGTIFF [facility] Rad - MRI Reporton Rad - MRI Report [id number] #1.00OTGTIFF [facility] MRA Head w/o Contraston 08-10 MRA Head w/o Contrast MRA HEAD WITHOUT CONTRAST; 08/27/2021 2:19 PM EDT Clinical History:LOSS OF BALANCE Comparison: None available . Sequences: Axially acquired 3-D gradient echo series for the purposes of hllu-nj-fmemce MRA. From this data set multiple volumetric [...] Deshpande MD 08/28/21 7:28 am Technologist: JERRI [facility] MRI Brain w/o Contraston MRI Brain [...] MD 08/27/21 2:50 pm Technologist: JERRI Self [facility] MRI Spine Cervical w/o Contr indu [...] Rosa Deshpande MD 08/28/21 7:38 am Technologist: [facility] Physical Therapy Noteon 07-12 Physical Therapy Note [id number] [facility] [place] [facility]-20[facility] Provider Orders [id number] #[facility] [place] 06-29-2021 Provider Orders [id number] [facility] Coding Summaryon 2021 Coding Summary HTMLBase 64 RlvbealgJRd6uGd+PGhl YWQ+DQ7HYKKnX08vhKAi bO8WC4eZKC4FIIBBSOQV FU3BJP6osFS5XAdmJ6Wk biAv ZjodhPXrSX03FQd4BEG6 mEpjWFyktV7fbBBnK3o6 QwRuWS43rV89TTnhYOFh SiK1NnRybbwpuVTn Z2adIjIwrPGrTwc+PHRh YmxlIHdpZHRoPScxMDAl EqRmwHvfUJ7pVk0fVXPi LWNvbGxhcHNlOiBj h4stOGUxTImcGY0dcLsz B1NdtNK8TDPlt8p9Qi66 dHI+KJCiAKQ3dOykGFzq b938CtFnq2dmZHP5 uUGuWAwdLEN1X21sg5B5 GEQaIHDfXJC6jHM5vK9w oSjcjhbtY9KljKOhOrC1 XBE5qGUyuY6jbNao tsnvzG6iPxr+U25YYP8P ULNAIU0HJjx9Q5PzOzyw dHI+YY13ZATgKK94zLXq rEDgy4lbxDi6PxWv DOUzNHL4yCpfUXfjq4Wm TOMaT77vnOSag1Q8JQOf iKifrLJjVuFqiWQ5gO6v AOlomhkzi5ralyqi Cpwfj7slyn22iN90S30s ACmfJTGtEJD8IYLnVWEn vXbkau4mhP3yEg4+IDxj x6ayg9gnbHu1JxRi QSZjluOyuJeuXNQ2w9Zh Bt06O9LalRnbj3SpLca9 ys05hWQrd8V9qPL8IZsf TAQcmF1kBPqmXeH7 XZVbQtYttE98iDAqYPsp Ib8qfYlpePbcWE5tRWWc vmoeHNNslY0tISWamYPl gZveGZ7kXJNewyvc n565WnZjLUI3TVVmsKKb R8RkrD6oTxUmRCAbPPTk M8LhuEOzBVvaT405MRjy IrR6ZZDhnmJcY8Gb HWReqRkeHeI4v5Q6Xl3E z0FnrdrdIHN3DMvxWUY3 QlH6ZrJkNuO1L2YxMtm7 FUWhpJdfYF2dJ1Np VMFxjbwystqtnRQ5JEGb GBAruA81xEThUKpeNj5k e5H0g548AADeNCYcqR99 Ki0mpZtdLGRhuYZP rZ4skahpu4coybfgGmWt PKDgTYc4ITp5ZYNfgHqv RtVvOOU5KqE8REM1tHAl vG8pvZidnuijxW6i Oyc+H37imG6gQVU0TCG4 mkbfMDNatoAjCH70QV64 J5FsFqsjzBTvpST+PGRp exBqoLoqFR6aZsSy l0wzy2EhCCrnO6DuNCSo WQmiFew0QBOhAVT8fQM6 tC7rWFJfJKvzj2H9eLY9 R9RdfeVsix9kc1su SVElHIaqP71inCPvs4N6 DLTgyZU6KPYmcUxlTpMn iT17Aci+RLEbfSiod3Ya Wnpif9vhf0nntTa2 IjMwJSIgdmFsaWduPSJ0 v1GhJx31G23lGZokKYDd IKPpMWMuWSJjmMhxeq1r vI2aIu8+PGNvbCB3 hSX0jJ1fSHLaPzF6TTvv V999MjFrmUEdSrwuq2bs u4qudHl6OwFfANKvwkEv bFlpEWJ6u8DkCg42 S58xEBztEWAtSXHeIRQs FPWmwRhxmf0gmN3tZn1+ VO9vw6dxcl46pY40hER+ EHYtUIK6tUimDQas GBTfpG6aNHllDsA4GDUp VyXtmM79gKFwFOwdRy0a eFblyOjtEQ4eOWTasgpi c519MeQpa5thLYSi iXKpZDxyISH7S24zj2B7 XRVyBVSgRTF7mCW3xC7c bGlnbjogbGVmdDsgdmVy dOpeFFiuYCyeA392 IHRvcDsnPlBhdGllbnQg PcHxSCk8L5VyRdx1WBAy vUxeWX4vlJSaAJupKp7a aOgsgMtiUU2xXSWg akjwh104AkDth4veHMTk jAWiXObvWRR1R64de1G5 TPPjRNJmIZA4qFY7nW4z bGlnbjogbGVmdDsg rlSczNgvVXsgTPusC344 IHRvcDsnPkJpcnRoIERh aIO8GY24TZ32iZUuk0D4 bEE5D6BpWYNorzxv ovowmCR6SXQkJJVhcU78 Pf9rsZjlKb6vDEBaIMK4 HCXxbRNhT7FhfO3zJlQi EFChWDYaV8GmvRKj OGizI884HMrlKuK4TWWo qtLyH3SaRMNytJkmYxS8 m1F7Yq9AE8O3GZ72KN54 hEQar8A7rOY4N2Zc ECGzxkockyyudNX5SJAz VOTuwX49Pp6upCrhTt2v FIIzFXV4HRJhtHAjO1Ob eI8dCtDnCQDaRLWt Z2GlfHKnKUejG356VAbp RpQ2YBCmkiVeL4IdMCXx zXcnLxG8w5T3Af7HKYr1 SV67CT18bLAss4T8 wCO1Z1TwKDMeqyhbyrzs iZX5WAXuOVZswZ60Ej8v nQiyVe7jLYVaUKX2HPYt tISkF6OpmX1qKoQq MNJcDPHqB6IaeCHfJBrf T327QMzcDtP4RMXkchMi W0ZjNWJceFddJqA1b1X9 Tz5TTOJbPW84RNC6 lIN1EN13GX93S4FqTbyc dGFibGU+PHRhYmxlIHdp ZHRoPScxMDAlJyBzdHls ZL7sYr3bGULoQNHf yCcmpTLsAuPha1ujHTZc QDerFS2mgJkwR4VoyLM3 OSGid4b6Ut47S62bC6Zn dXA+SBIolQP3zHG9 vR0vLiGbTdA0LUwuX441 MvWtiMKqFnbxh0zxv9qt tWg4GiO5KLRwdxEfwGed SKZ5e5LbCc94J43n IHdpZHRoPSIxNSUiIHZh aBfchm9gtO2aFy8+PGNv fPF8dUN5pB8wUfEnNcD5 CRgwZ561BlByrBMw Cqeac2ycp6yiwAp7FzSp OXTzhlGphNeuWMZ6e3Sw Iz80R3RwqFaja9SaSno7 tx17fIIfv7L5gDK4 Z2JkBDPzwgsgdFRlzRwq UD4jCZNvqhypVMUknG6k VVTpA6t7VeImAhD6FMpi C5OasbA7QALgaZXd WKtdTHF8M17mk6E3CPWx FQBsYXP2gNS6gW0guYan bjogbGVmdDsgdmVydGlj RArnOQmgB573RTQx pKtnUOJuqQ4wXLMsoYBx mBsdTL2qAQWudnsoUyOQ S1ERK56CMBICG9WSDwPq XBbWJR23Q2TwWfm8 HNRmhYntHA0ckIUwLBoy Aq2kxCpdmBulAW4hWTJf uwqlGGKsuU8uPXNkhNCu fFgqUZ1hQYSxhvhg l256RaSpSQW1XLEamLDr B2ZkbZ4iMrWeMSTwPAOd M9MxmWHaEXgzQ241HVvk GoD2BSFboeBwM0He SUWxhLkgNoG0t0Q2Ge2k EF8vNs1gXQU1ZI50ZI19 wAZzo2L8oTJ8L6KmCCEm xrvaudsslZR0BAMy CCSwvF95xIBqISwtYw6c k2B7c217AOFgLBKazB98 Hv6raCbfQFLiqSSKuH0r mbewi5kcjzgiGjSk OKZwWKm7ECz6XVBjoKiu MjGvAUR8SrV0GKN0sRBs kD8qwPdvtlcmaJ2lAud+ XRDhFDAbayV3G1Zd Kec9GMPrgIvsSA5siKEe UAwiUj0apLucgOijYI8t QKYltpgoSLVkjA2fOVXh hODatUztED6oCXXw kmftu672TjKxAOM7XOGl hPZsR3WmaZ8xJzXwXJQp KMCpK9JfgUGpCFhyJ144 JEhoQjX6NYYzikEk U1GiWZSsrZpwQvS5s3W4 Ls1VDMyLRU63EQ21kIEu w1J7pTA1U3VqDCBuqlha xqdbcVN1CNFaDASf wP82jTWbVZvbWk5sg1R8 o295BUCtNNZjuQ05Os5b jGjoXJPtuIUPoV8yporc d3mfnuzcSeXgYQZw WJj0PUe5GQVzrGdlLgVh ENY0JaP6RID4fCXlsN5b oAduknjdpG8hExh+T1A8 Z5KcOkcrgCN+PC90 UUShLH59aFSbvYKbw4gx gPs3PfYdVVPzVXR4sGsv MWhek8PmUZKkE76iuAVs g3L5NUUzpBmeaNIs OtIoiEV9gC0gBPzsibyy v4agbtshDdvvu1hpvd49 gI78P58aBVgdZPFqRCWj BTCbJAMxnVluah6w hG3hZk1+VXGdqSI9hSC4 pT3sQxWlHrW9HHuzO865 YkHytUWeGjpbh8rte8le iUj6CeYiUFCduoWo vKdzFBH2y0JiFy17T60b IHdpZHRoPSIyMCUiIHZh bUvtvo3imO8aLl9+PC9j m4dwly12aR45eFL+ BMBxKCG7zUtvYCmuKZXv lB1vYYtvWuZ9AVJmHzOo yM14nZCaZHvtFr5tmQeq jMstYK1sSQPwhkpx j034PiTbp1asJEDkoWRz NTwmSEP6Q46nn7V3XVDw LNKyIDK5vVD4rC7hiOwj bjogbGVmdDsgdmVy mGemNZezVFvyH816HFCk hYxiHwTvnMXiS2ljlqUV KL8wAsqspRW+PHRkIHN0 vDxxXDvwAMMwxP9x XBIcI6t5TeThAzX2MSva N5ZhonJ0VRImbQFdQBZy fJRTmQ4smsdxb8kekewj OfYcVIVpWRw5DAs8 DUKhvWcaBiAeFMM2WxP6 DLN1rKAksR6psYumnsba tJ1wXvz+RklOOjwvdGQ+ LEMsAUY7fIfdIIft KVRpmO4oSGQvC7i9SbIw DjY8RSgoU6DdhsR1ARWg tFOtQSKyuNQCkR3xirnn q3vqbhomWjDiMHWy AAy6DVo1BKMgjFonYzSl BCD2PmS1LTJ3wQDzaO1c tGwpblwwaD2fIzp+TVJO OjwvdGQ+PHRkIHN0 rSfdZCbeLHVpiA4gGTDa X3r2TbXvZpF9WNuhH1Ss sqW3AEFypICnDFTegWIN wK3bnsyxr0eivrtp WpDeTBXyTSg8UCa1UCRn vTvsAdIaUUR3CmA9OZL4 yVRuwA4dlItnaeqxaC2i Oyc+KZW2DRJ1YA92 SX68G6UfDhblbSYisFZ+ PHRhYmxlIHdpZHRoPScx OKAhDlSwlMumEA5zIy9x ZGVyLWNvbGxhcHNl OiB (more content not included)... [facility] Provider [place] 06-25-2021 Provider Orders [id number] #1.00OTGTIFF [facility] .Auto Diff 1on 06-22-2021 Auto [place] % 10 % Normal 11-21 [facility] Comment on above: Performed By: #### 1 [id number] ####[facility] (DEFAULT)[address] [place] [address]24 Baso Abs# 0.2 x10 Normal 0.0-0.2 [facility] Comment on above: Performed By: #### 1 [id number], [id number] ####[facility] (DEFAULT)[address] [place] [address] 25064 Basophils/100 WBC (Bld) 1.9 % Normal 0.2-2.0 [facility] Comment on above: Performed By: #### 1 [id number] ####[facility] (DEFAULT)[address] [place] [address] 80794 Eos Abs# 0.4 x10 Normal 0.0-0.4 [facility] Comment on above: Performed By: #### 1 [id number], [id number] ####[facility] (DEFAULT)[address] [place] [address] Eosinophils/100 WBC (Bld) 4.7 % High 0.9-4.0 [facility] Comment on above: Performed By: #### 1 [id number] ####[facility] (DEFAULT)[address] [place] [address] 73953 Lymph Abs# 2.9 x10 Normal 1.3-2.9 [facility] Comment on above: Performed By: #### 1 [id number] ####[facility] (DEFAULT)[address] [place] [address] 91455 Lymphocytes/100 WBC (Bld) 33 % Normal 14-48 [facility] Comment on above: Performed By: #### 1 [id number], [id number] ####[facility] (DEFAULT)[address] [place] [address]38 [place] Abs# 0.9 x10 High 0.0-0.8 [facility] Comment on above: Performed By: #### 1 [id number], [id number] ####[facility] (DEFAULT)[address] [place] [address] Neut Abs# 4.6 x10 Normal 1.5-9.2 [facility] Comment on above: Performed By: #### 1 [id number] ####[facility] (DEFAULT)[address] [place] [address] Neutrophils/100 WBC (Bld) 50 % Normal 44-88 [facility] Comment on above: Performed By: #### 1 [id number], [id number], [id number] ####[facility] (DEFAULT)[address] [place] [address] CBC w/ Auto Diffon 1 Erythrocyte distribution width (RBC) [Ratio] 13.2 % Normal 11.5-15.0 [facility] Comment on above: Performed By: #### 1 [id number] ####[facility] (DEFAULT)[address] [place] [address] Hematocrit (Bld) [Volume fraction] 45.3 % Normal 34.8-51.9 [facility] Comment on above: Performed By: #### 1 [id number], [id number] ####[facility] (DEFAULT)[address] [place] [address] Hemoglobin (Bld) [Mass/Vol] 14.9 g/dL Normal 11.8-17.7 [facility] Comment on above: Performed By: #### 1 [id number], [id number] ####[facility] (DEFAULT)[address] [place] [address] Instr WBC 9.0 x10 Invalid Interpretation Code [facility] Comment on above: Performed By: #### 1 [id number], [id number], [id number] ####[facility] (DEFAULT)[address] [place] [address] Man Diff? Auto Normal [facility] Comment on above: Performed By: #### 1 [id number] ####[facility] (DEFAULT)[address] [place] [address] MCH (RBC) [Entitic mass] 31 pg Normal 24-34 [facility] Comment on above: Performed By: #### 1 [id number], [id number], [id number] ####[facility] (DEFAULT)[address] [place] [address] MCHC (RBC) [Mass/Vol] 33 g/dL Normal 26-37 [facility] Comment on above: Performed By: #### 1 [id number], [id number], [id number] ####[facility] (DEFAULT)[address] [place] [address] MCV (RBC) [Entitic vol] 95 fL Normal 81-100 [facility] Comment on above: Performed By: #### 1 [id number], [id number], [id number] ####[facility] (DEFAULT)[address] [place] [address] Platelet 295 x10 Normal 138-427 [facility] Comment on above: Performed By: #### 1 [id number], [id number], [id number] ####[facility] (DEFAULT)[address] [place] [address] Platelet mean volume (Bld) [Entitic vol] 9.1 fL Normal 6.3-10.2 [facility] Comment on above: Performed By: #### 1 [id number], [id number], [id number] ####[facility] (DEFAULT)[address] [place] [address] RBC 4.78 x10 Normal 3.70-5.30 [facility] Comment on above: Performed By: #### 1 [id number], [id number] ####[facility] (DEFAULT)[address] [place] [address] WBC 9.0 x10 Normal 3.5-10.5 [facility] Comment on above: Performed By: #### 1 [id number], [id number], [id number] ####[facility] (DEFAULT)[address] [place] [address] TSH w/ Reflex to FT4on 06-22 TSH Qn 2.41 m[IU]/L Normal 0.45-5.33 [facility] Comment on above: Result Comment: Gene ral Population (males and non- females, aged 21-88) 0.45 - 5.33 Females, 1st Trimester 0.05 - 3.70 Females, 2nd Trimester 0.31 - 4.35 Females, 3rd Trimester 0.41 - 5.18 Performed By: #### 1 [id number], [id number], [id number] ####[facility] (DEFAULT)[address] [place] [address] US Carotid Duplex Bilateralo n 06-22-2021 [place] Carotid Duplex Bilateral DUPLEX ULTRASOUND EXAMINATION OF THE CAROTID ARTERIES. COMPARISON: None. HISTORY / INDICATIONS: Evaluate for carotid stenosis TECHNIQUE: Bilateral common carotid arteries, extracranial internal and external carotid arteries are evaluated with hogan-scale imaging, color Doppler, and spectral analysis according to a standard protocol. ICA-CCA ratios are calculated with high school admissions representative peak-systolic velocities and recorded. Vertebral arteries [...] Jules Tilley 06/22/21 2:18 pm Technologist: DIANE Self [facility] XR Chest 2 Viewson XR Chest [...] MD 06/22/21 3:55 pm Technologist: SE KATHY [facility] Coding Summaryon 05-23-2021 Coding Summary HTMLBase 64 AeprgslcEKu4rKv+PGhl YWQ+PL1FPXTzD39yuJMc cL4CL6fFMI1JFRBMNOLL NH1HTP0rgJF6WQqmI3Lf biAv DmvbjFCrNJ35IKj9YFD1 jRtsMTzfrN5acSTqL3w6 IkYyNB36kU20BCqiOZVp XoO5ZhTzyvjioATc Z8qiVpAmsXCsPpg+PHRh YmxlIHdpZHRoPScxMDAl LqJkeNnzVN8rBh5pUQRz LWNvbGxhcHNlOiBj t5drJTGtZBpfXM9gpDdm R3ZxiZU5PRMko5c3Kx64 dHI+DUBnLNG2mQjwBTgs b574ZuFqz7arVRG7 xFWgQAwiKJZ3H73kb4M6 LKZbTRDbAVX7vZY5gB9g rYzomnabU6WcoWOcAvP7 ZRV6kZWpqC1nyStm oldawU0jHxs+Y42MZI2P KSAYQD1UIfh1Q4QkHvay dHI+VB56QEQaVS75fQPa zUUsg8zvgYy5PoTv XCQrHWB4gZdjENxuk3Id YTQtD52rqCNhh7S2GFBd eEkzsSEbAgRqeOD1hL3l WVyzkgujx9qvfbnm Ptwmq0mqze62fC57E77c PPtyZQRcOVV9HDHiJLYt oGixyj0tqH8dEz3+IDxj m7jvi8rwwUx1PaRv AUSizlBvyFhlWRX0m6Eu Kv99W7DcaXxkw8NrXrm9 hc17kKZqd5S8pMD1ILjj YAQonF4zJKleZmP4 JZBoVsIzoD56rCIxZRea Oi3gjIrtyEtoRN5vNEWm tqmtANTsvT8mCJIitSMk nZjbPC7pUXMvhmxr h082XuJlSQV8UFAzcHFc Z2DoiE0wCsCvXJRpIQHb M9SfaBMaEOycV811MPpd NaW4ODTupbArX6Sb OIIfkTkcKaV8o3F0Vw9E r0VigopkGID8JRdgJMJ9 RvN2QhCwFyY7R6VqWwx4 IRWosIlqCQ8gA9Yg MKWxouftudkelAB1CCPf XLVkqW71rAJmHXnlFw5o h0O1e875BBRtEYWycV29 Cw6teGarXWVlzGYJ jH1moyxhl7hgnxsyIlIk OFIgNYd8XHk0NBItrFex LbIiYHH6RlL5EXP0eDOa iB2qfGftbipfvB4t Oyc+C23ieD1vTHS3RKD6 akhjCCUsojJcWH94VR95 D2PgPgbgiBKziUL+PGRp ikOonMjmVU6zLvOe t0upm8HgQRxsN5AkJRRt MWfqTrr0APXjQIC0nBU6 uL7rNFZsSEyjq3D6cDZ2 L6TgroEaqe0dw5ow MJScFLczY98orFZzo9K3 ZHGiwSY5OPBftUzdRnKr gV47Vty+IBHsbTfmi0Wf Wbtku1uyj9gdvUb0 IjMwJSIgdmFsaWduPSJ0 d8GxWe96A87kGMtbCUEa MVPlXDLxWVTpyLomvd3r wM0hZj6+PGNvbCB3 iLN1uE0aFFOkVmO1CLxi U490IeHdiJHoXnfio5ku h6ypvVk3LyPgGELlmiGe oIuoDOR6g4TqGb26 Q64gKMfaBQMiQWZmVDOl NXKzrBvthx6dyY7wSg0+ KO0vj2vstu72hP46qUH+ CIPaBLD9qLkgEYpq EXQzvZ9kXEwyZgT5HNBo OfEyvC93wDCaDMraBp4f eOvlvFfaZK4xFBNvsyts r744RjCyp0qtBTMr yJEqOLwtVGS5V51cn8V1 RWEkAGJkRXP0oEO2aB4w bGlnbjogbGVmdDsgdmVy mAuvRFoyJGgpN160 IHRvcDsnPlBhdGllbnQg DfVaGQo0W0LpLry2MAQk hOdjEG3ydNGkOBycWj7o gQtghLvmXT6mFNJu xtiai309HxCrj9psJNWj aKDvJDqsKPI1R40au6S6 VMGpTKMmMSF4tLI6kD8r bGlnbjogbGVmdDsg znPifTjtMCsyZRxrO639 IHRvcDsnPkJpcnRoIERh cOM5XV89XB34zWWix6G1 fLM4L6BbFIDtimcx fjlsqVL4TYXfLGGwkG47 Jb2pvVgsFc8tTZEsDQG6 OJVdsDLvR2RpfT5eRwQu FWIyONDwL5AsfPXm YRscM562TAebPwS5IKGw hfAaW0AsWJEpdUrrLdU0 o8G3Ig1NZ0I5ZN13DE68 tDBjf7C9gWH8F1Ug SBPohnnqsuzdaYX5BHDe GEIuiJ99Gi0hzBnoRm4s GDIwJZA5SHGagPAxH1Ia pL3kLfZyNAIrRDUn X6FmrAWbQDheO012LHmx LyU8DFObveLjX7MkMFOk lEyrNcP8t3P5Hj7UVQt7 UT81NU68mGGkd1J5 oZU8N7AsGOBmqlcqorkw aMF7GKKaABGfzB37Dz1l lHomCa4oTCZyFZX8PRGc yTWtR6YlyV4aGwSq LZLdAKFhL6WspKUvLUis P315YDaoXiO6WPXeimDn V5DfREHwaQfoTvQ4l9J4 Hv9FGMZxUS23KIX8 oCC5XW83LI95N6HcTsnv dGFibGU+PHRhYmxlIHdp ZHRoPScxMDAlJyBzdHls YC6wLr9cLEJjIFOn iGmuhENhSqCye4teMZMb TZeuOR3lnJcrY6NknPP9 EJFzz2u4Bj11P19kX0Br dXA+BIEoaUG8eGR3 yL0vVfYsGhO2DTqkV540 ZqOzyJNlUjgxf5ito1zv wZh1QhE7GHOkoiBkwJky MTI8m9PeSz29W39x IHdpZHRoPSIxNSUiIHZh sDufzc4yhF6tLr0+PGNv gXJ5dEW0wZ4fEuLmGwX2 EXttF461QhMcuGOm Krwul2wln3afbPw6DdIe WZLezkLwfRrwUWZ1x6Fk Tp54Z0PsiJpom6WnAti4 xr20xFTxr8L8hTI3 A2JaXZZpchxfzSNzdSvc GC2tGCUzmrjtYBUyvU5u AWBgN8e6MbLtIkT4JFzr K6WqqvM6BNGvfIXg AHqdVMV7T32eo3M8UWNr HGFkZSZ4pRR2oJ0kiAyp bjogbGVmdDsgdmVydGlj GFrpCOtbV060ESMy zMqwQPDjcO5qITVjhBQs oTjzOW0zFJUqxwxlNiYL J6DGC50SRKSZL2TPYxEs FWoKLN29Y0YzTrr1 WNDtvJvwPD3byCXhRItp Ic4hqYbugDqsBI8qRANm gbzbOHMkfO9gJOMgeFFy gHnjZS4dLRCiqnoo n198AlDqICV3JPGrtLDs G7SvvB1tWaVcLBNgPCDo C1LpjDMrAHjnL325RIwx ObQ3VQZfmoPgM8Iw FRGwnPcvYvC2u1P7Au9s OK1qYy0iCDQ9GG03ZW21 iOJxl5V5jSI0R1BvYRSt epofekdwrSQ1QPTh VOQuyL62uTYzEIdjCj0c n9B7x738RSUyHGXyeS69 Cy7wtGkhSQJxgGHEkG5o ucvce9qggpygWyEs EGEfVCf2YZc7FNEaaRzn UjCgSPQ8WrP6FST0aQGs hW1qrNksdiiuaZ7dMrg+ YZNnPGSbhhC7C2Qo Boy1VJNwnVkqLE6zyDVk OHueZw1vpEyboBblAH1f GHEdporiZOTprJ1vMPGj wTHvpVcjHL0vGAFg etkjf040SrPlCLZ7LZVh bPYsR3ZlzS9tNoHrLCFv OVVzB3MrkOExQFvwI060 APxbByU8YNWgjuEh W4PrHXCrsEtiHwL1o7I2 Hz1UTUoRDB01RZ03sGWw p2F6kXS3O6MpWMWjmsmk rbfvuIH9XVFgGHCn bC39mIVrAUrlLz5cp9L4 r873GEMpEHXquL21Ku7g aNrxIDXjfIUJeH0rbjsg y6avtzasAyEmOCOo RAq2SRt6BKButTpsXfAc ZDK3YuY9XUI6jMRzpV3m jRwbhwgryK8yJgq+UmVj bSDhiC9xDL66pAFp xNenfsU0U3JpEwnghKU+ HU07DKQyIR71qNUwlNWz s2fxnVj9VqNpSXKuIQT6 gRoyOKami8AmXOGl P80ppUUvo3S2OUHphOwt tOWeGgCvdDK8eH4zHQvq halxa1hryvmbLrqna7ik vy86uK73I70yDVkb ZHRoPSIzMCUiIHZhbGln bz5ekH8nCd2+PGNvbCB3 fPW5bX0fTeNxJxU6FEzw M315QdIzhNUuVnqi z9vew4xriIj5QaIbMBIa slMvzCujXAZ2y5EkVz70 S04xWIliMFRwDJWpAIQj JJCkiQksyh5cqY0x Ii8+DW9we4jveg22wL70 dHI+KASiHHX9yBhmFMit YCXqbW7yHUqeLkC5HQOp OkVzgU74dNWeDOiw Tu6awHkyeMjnEJ2yYMNh llpya723QcUeu8krOCZi cKKlDZszNYU9K58ug4V4 MXCyAKQdKUL7hVM6 fA6erFxunggjoCJmvQlz juKmoAsrHWnnTIznZ089 LSZwdLsqFqMysNFwC0lx xzUKIS7qSxvquSA+ CEVpOMU4tNmnLWoaJVKi gZ8uEGJbS2c6WyFxGyY5 DVlcT8JxpaR2YPIijUVg FAWqzJUYzA9yquas w3smetlnNwEcWVOpHGy8 CQd4CMFnkZtrBzHoLWG8 AxC6PAW3qWLyaO3scPiw emvpfW0pNlo+RklO OjwvdGQ+RNTpPNU9xFue LRitWXJoqM4kTHXgB5i0 VmQdCcT2VLmuE0CysqD7 IGJvbGQgMTBwdCBU cG8qwjagv1qfwzahFgOn YLQaCXv5WYr0BEVfeVrp CbYgLSY0FjP2TLM5aUSo dF8dtWbddvsgqH4f Oyc+TVJOOjwvdGQ+PHRk IER0cKneHIqeXPUknY7a ADBjP2k9CcZtZzE3LUoa I7MebeS1POBxlIPq SFCnnHWCdL2ssgxuu4gt wjpuIgPcVSPzQFn9OOs8 LVWcyOdkDwXoJJY1LpN8 MCQ3gLQkyW7ofJrj koqaqL5pUwv+PLB6BBB3 FS30AY96D4JfLnrihJLr bGU+PHRhYmxlIHdpZHRo PScxMDAlJyBzdHls ZT0 (more content not included)... [facility] Provider Orderson 05-17-2021 Provider Orders [id number] #[id number] [facility] Coding Summaryon 04-27-2021 Coding Summary HTMLBase 64 GriwkydsYSl1hKl+PGhl YWQ+LV3QGHIyA40utUDj fE1BO0iTHI0QPRBOHUTU JD1KYW8yrKJ5UXujJ3Ek biAv KwtggWVjDQ63IGq0URG3 mPagHDoeuZ8taKUyO2e8 IcRdJR45vX43AFjaRYUh XrY8DzFmoqmnbSIt B3mxRgHhoQBiGhw+PHRh YmxlIHdpZHRoPScxMDAl StXpnMxgWV2oXb8dGLDv LWNvbGxhcHNlOiBj e8dzOFZkDNlnDP6onNdm E5EpwBI4OUQan4i6Yl05 dHI+YXLkMEF2kYypJXff a485RxZay2icCRN8 uMFkBWjiWOG9Z91qr1J0 VMSfRQNvEYO5iOM0kO4u hLolnykqI4VqfWZoZpJ4 BVP3oZPhfG7gxNly etddwT7pTzk+U12OOO5X XQLTFI5VGjv1S8JyAgdg dHI+PT04RXFaJH44zIXn mCSoz1drnNm0TnEe SYQbTIH3rCfaTGtdt7Aq ZTKkT26bsKJug1R3NZVu nDfrhNYhYwUnaPB6hG5z EFfojpfow3jfyoit Kavli6uoew34yE03W08a YEnzSRZoYBV3ILFwZLGk cXccuv7fpE5jEw5+IDxj d1kbj7rghXi8FzFi DZPatgLwcGopDOC3i1Lh Jz41Z1GqkMbao0YdCeo1 wo11iIXdx5O5iYP4UMun UUXnhX6jYAulOuZ8 BQAhXnYlrQ74xFSqSKjg Dr5kfJhgdQfuIW9uRUAo fobvVXNmyD6tKOTvsDUb nNnpIC4vWSLduvtu k652FuYaSYI6JLHfhLLa B9VqfU8iKdItDRMzRJOx X4YnwIInRNvlR714IUbj ZsJ1NFPbjuKyG5Ky RBYhlAhcNgC2z0J1Gg8F g0JeknorMHS3SYcuZEU8 VqO1PlFzIgF8I6OhJws6 YRYnvPitME6eO6Uu VBGdosxcpxtuyKC2QITy EYRvvF61qNSmAXdlSu2c s7F5d319DXWaKJJxxR97 Pn9adFgzZHBkfZFB kE5igujvn1gzmwrhXhBb JBYyLBm6ADx3FXVmnVqh NwDzHIK5ZxN4MPQ2xVAd bF9viEkeffcjwD3c Oyc+K64erB2eXGZ5NMY0 trxiMUXsmkQgQH06EC59 E7InWiovmPJjpVO+PGRp bmZrmVeoVA7cQjHs r9bks2XvULdmS4BaQQQp PHdzUke7EYOiYPV0vWR5 zT3bKQEwJMonl4S1oXY8 F5VvcyWxcq9jk9lx CRLsBZitH12nyOTak6E1 NHOzvXA5KGQnlYjfLmHq yU28Tqx+GYXihMaip4Sh Mcyvw6ope0xihAi4 IjMwJSIgdmFsaWduPSJ0 z5ZqMf55U39iCRdyHMQz PUGeHORwUYYqcNixlj5x qM5uZr1+PGNvbCB3 jVI2gP9iUVGlDtO6JIux U493OmGzsMCwDqzch6yk v1iphQv7RaOtLAFyjgGc mEzhGWU5v7LgNz72 K79zHJojUYMcESCzKUVi VDMtnHioaf5agL4uZe0+ KN5qi3tbqu87vU98mHC+ VAIzDRS6lSjzXTzg RZUrjT0cNQpnEiU5RCCh KjJcnA23zUQfJQviKl2d iSwpzLbfQI5tGGBrkhkl d018XsUxc6ywMKFj wENcKLtlRMA3B05jo0G6 APLzMWUcZFJ7vKL2nV4f bGlnbjogbGVmdDsgdmVy sBjiXGkuGQuaX586 IHRvcDsnPlBhdGllbnQg SoMyYKh2M6SoJmx6WGXz gVfhGL2dpVAtFKaoFw5d fMlwcEonWR7eHLPi fdqdj838DrOct1jaSBDh nUWoBPczENS7Z86wo7R8 WVPwYDQvGVO4vNU7rH6n bGlnbjogbGVmdDsg wbLwoHosLLszPYihY836 IHRvcDsnPkJpcnRoIERh zRV6XT15VU45eUDfe5D5 pQT9M0DqEPOkijlt svwvcCO5ZJWhIXMkkD29 Pa7cmVeoBx4fRVTcMBE3 NTJxkSIfU3KzkA9jKxNa UAMeXRXeH6CbdIWy WJovJ509VWzlQdJ5YXXl tzWpM1IbPGCkaWpfLeW8 f6K2Qk2IX3C3LT00JD91 bRXuc3X8yGF0O0Yn SXWjyqtaqejjsOO6PDMl BGZgcA76Wt3lmWxqVb8z AHEoJTJ7YGFeqGWhX0Mp qJ6eFuPpBVGnBZUz B7SinYSnMSywG411CKbj VeN9HPHpiwWeZ4XkQOYn nTbfXxZ3v3Z5Qt1OAVr0 HC26LG58fSWeb0J6 vMS3F5AdNKGzvmpttmmn pAW9AHYxRVCqqS01Pu0x eOpdXd2uPBNbXDU3QUCx uBJnE3HubG8lQbPd CFXlHBWzL5AnnDVrNSwy Z663DCwoQvG1GIOoutPa P7TfCBEsfYmeMpI3h8N9 Qf8KRWRkTE89EUN8 xYA4RO83JC78Q8EgYzrg dGFibGU+PHRhYmxlIHdp ZHRoPScxMDAlJyBzdHls CI6cKz1dSEDnUXZl aJsdeXJsDjJzr1lqYGFa GJhgIO4dlVsmQ5ZgjIT5 JUIaz6g1Tm37T23cA7Yy dXA+NDZrdCV7yBX6 fX6aJwSwHzS8USxkC975 YyUquMBqTaxlb3lee8gr gHp2IaA4PNRhfnXwmQpi UPK4m0DfNs66O16q IHdpZHRoPSIxNSUiIHZh yUgtap8wtE3fVu9+PGNv qQU2sEB0tZ6bSwBiMtW9 AZotC876LzStkLYf Aelxv5qak0bqaCs4OwLr BOWxbiEpgMyfZJZ3a3Mx Zf55D5FpzCilx9VgJin3 hp84tWTps9I5xPR7 T4ReGACkcrrbcIIrmBpv DO7pWHSfslasEDCwfV6p QNBzY5w2UaBbJzL0WVxl Z0NulnU1AUKllWCx GAfuYHN6M01qc3B1GNNb NPHsPQN2cVN7dI5qcFlw bjogbGVmdDsgdmVydGlj MMzxQUzcT918ZMUg gDmmGETsuE7vVTMejDNa wAhhOK8eYXOoykldHaTQ K1TPB75JKPDCC1PPZfTo KAiNXD32P6CtDui8 KEMaaIowAA8gpFIaYBvd Tl1okOjnlLlmHD5rTBEx afvsPDUhgP4hXDOcuOTs fPvyVO0vBPVeuibo o010SdRdIWR2DGGocQDw U5MkpL2yTiUtUIIwZGBl E6VznECsNPsiR084POyf FiZ9MZQwneBmP3Tn IMXcbNojNeU8g3M9Qk5u PP0iEc9qVEV9JC02AW06 xNAgx8Q9dPY3V5JpGQJt pktggumbrDO8YCBy HGMsyN53zBPrEFmzWh7k v7R7p792GUZoSVKmlT80 Rs0aaFynVOAajCSWvG6g oxxqk5yzbigwMiOp BVAaALb2LTi3ZYFtqMjr NyXkKDG0AkF2KLD9nYOi bW1coSjdofduzI6ySyx+ FSQcVAHgqfY9Q6Hj Ubu9AMCzuIciYJ4zhABi VTdnKt3xtBzjpMhpRB7k ECNswzpjDXVszU7xZTIb jFDfcQkzAO3iTIXs vumpq249XbLdMCA8IDJd cMSzC2OrmZ2wMpUhVPXe DZZiH5ZzbOMsQLvzT215 SGlgUnW7QBEfnsMh S3BwEMVujNplBjX6f4F1 Rb1JVDrQMU98QM61oAZo i9X1bYR7Y2WpQNWulyjc mcdfhVF5TRTcLWPe cG00jSLfHKasLf0we9X1 y318NSYmXLKcmE96Sy4d pZlgOQHulGZMqS3gwtnv u2nxltkwFlMjICAa UYt0NYl5MQBboStlSeUw NAP5NuZ0WCF2oWBpqW4i pGbuboivtY1jJfo+T1A8 S2FxSnwzrCQ+PC90 SOWuUR74oRJqkIMmu9kj xNs1VkTkDBPiDGR5jBjy UDvrj9SeTNVhE66gyHPq c9X6MAYflXiqaHSn QdAlrTC2gS9iMXvtfiwt l5xutabeGpcas3boyp02 jP19T31vRZxwVEHhXCSt MTFkPPElpCrdax4i mX9xLl7+SULpzXH5yFP6 uY9vTrFqWoH6YGtqE052 VoTpmQKkNgwmj4ipm6dq iRz8WsUeAIYdbhLk vXycHTV0u9SvYu90S33v IHdpZHRoPSIyMCUiIHZh xCpzgr0vhY7sEr3+PC9j k1ssga54tL74rYR+ KHNiGWM7lKtpQSarUCUr vH3bHToaScA6JJQrQxZi kI34gAXhENvlFs0liEul kAhoRI9yLMZlxrky s931IjRkp2vdGSNwnKVf NSstNPY3P76cc0U5IATd SPBtLXY3tBY0vY0ybImo bjogbGVmdDsgdmVy xHrdLNcjEEoiW388THHz sDvnDoBrgQYhG7vhwoLI EQ0sQbzizDM+PHRkIHN0 pYykTQslJLSxhA8q WOSnC7d0AvAzQnG2QFfd T5HphgI5IXMgePFhEURe qTWQnW7xyybdj7vccxrw GnOzPZXxLYt4RDf7 IYYatStbKhReZPN1KxK4 FUR1gZEjhZ4flTnaiazl tX4fFwl+RklOOjwvdGQ+ HUKxNJM0lWqlGLty AAXcyL4tWRGgK6e5DtXw DaU5PCcxL3KhhnY7SQSd kAYyZUXtjKXOdA7umtik k0lnjdsgJfXwWHFj JOs2KZr1RAUicMbbFcHl NQX5GkE2GKT6iTZhpJ2l rHiqieulpH3bCmo+TVJO OjwvdGQ+PHRkIHN0 iLpsZFlnFASjeZ0cFYUe M7n9KvXtKmO8UZppS8Lk mmY1HNTbxDRmTTMptRQN wH7pmhxop6ilqioi DjZeNMUmKNc3ECw7HRXx vBvrMbCeSOT3ZhE2FZD5 hCFumF5xkGfkzlqpfJ4w Oyc+TGN5ENA0TL17 JW30V7MhFauxgQLemEP+ PHRhYmxlIHdpZHRoPScx RSGsCmMufTdtMZ6yNz8d ZGVyLWNvbGxhcHNl OiB (more content not included)... [facility] Coding Summaryon 04-06-2021 Coding Summary HTMLBase 64 GqxuwemeCPh9fFu+PGhl YWQ+UE6RJRYzV85zxCPe yX7ZB3mZGD9ZYFYEFISM KU2WRJ9gePW2GNadQ9Za biAv GyletXUpGG32XCh8KKV5 rJvrVRpdrT2faJVhJ9h1 SbNkAF45pC76XMwyLRNa HjH5YsGyquxhoJJa B6nbCrAgbEXbZim+PHRh YmxlIHdpZHRoPScxMDAl AjOllFhtGJ1sIe1dXGCx LWNvbGxhcHNlOiBj n8mrHMMfDKqnZL3paMbp Y2AraYP9HDLfm7u3Xc34 dHI+PNHuHER7aCmiBDwq z354HpJdx9rrSGY8 pZPyVMohEXL5O23sa9Z3 GPOyCEJnMZM7qPB5aO8n nQdgqoxvD0CesGGqQpS8 RGA8jDHhkA7sdRtp srdzqF7eJdv+Y79RBX4Y ZPGWWF5XKbj8X9AbAzpk dHI+ZN53ZPXiRI04zPWo bKAps3fzmAy8RqUv JUXgOIA3qMqhTGrcj1Dj ISOhH62krOUlk8K7FFIv mBhylCPtDfEniEV5rG4o FLhajxpnf1vubjxs Zdzag8ezyv57zY95Q88d EEurJFGiGQJ6KRUgSRBp nJzijz7rtW0xOi7+IDxj p0rmk4juzPh5UeNv CBDtkkKxaRydEVI8k9Vv Cx76I3XdoTsft2YvOnb3 ph59sFZxf6Y4iDK8GRgm FFHapV9aIBevZsH7 TPEdHuBwqJ44aRWbTCat Qp3siJuicJuqLZ2xCJKq vhhdQMNvzI0gVNHxlZVf bQvaCO1vGFUlrkin n489GhZhPOW7TNYohGNr Q2IgjB7kSvKcMHIjHXHu C5NuvJSuEYqcC189VNlo XxU2YLThypBlA3Qb ZVHcwFdrSuR6a6Q0Wd8R a5WdnpuxFPJ9IFojYUJ3 VdQ8BbMfOdS1R9WaYlq7 CFFbeQveWG7kI4Sp OGTlbvkgfhxanXY6FYQp QVFogC49iOXaPDluUj0e v7N3w009QXJjHSEotH11 Pw4jiEfhRDWvmNRL qS9cqipex5nwdfkgGrQd HXLgHJr5YCu4XLMkrTwa WyWxAKJ7HzS4YEZ6kBZo nJ4yyIrbckhbmS2n Oyc+O72ojL1wQWV9QUI9 vahtRKJrkpJdAS08UC13 Q8XjStcsgDBgoSG+PGRp nlWnrNmpBI6sXgHb d7zip9IvAEruB2VnZSSk QFggMnp3EIGhPYX1yYM6 iH3lQZWzORjtp7U5vMO0 F6QparPmlo8xg7bw GPAjAKqnS26fdCWay7C6 YOXqzKD2QXNkqCxiGbFw gQ34Bcn+UZNihYaht7Oj Ltkgd7rxb4zmlOs3 IjMwJSIgdmFsaWduPSJ0 j8HiGv41S92fGKtdBKSa SPTkHBRfZWVtwZkbay3y pP6mRv1+PGNvbCB3 mRI8yZ4iDMLlOtM2XWbd Q679AuUdqIAdCtzhk3lo n1rsvSw3CcOhYPYhlxFq lUtdPVL6m9NhFi19 L04xSAywRBDjRIWzHGEz XNWbsLdgti1drO9qAj8+ NO0ka5elag02cA85yYU+ WZBtSIF0bGqaHPau TDIxxA1sPQjnHaV1GDSe DwXzpS02oBDzVBszMp8o nDtocMxnNP8aMEWruysn p371MpGkp4qcRXGl pHEyZYwoKEO8W63dr0U1 VISsZYZnRJQ1jRP2lR0b bGlnbjogbGVmdDsgdmVy lMcmGMqsRCzxK285 IHRvcDsnPlBhdGllbnQg TkMiLRt7Y8FiHhs0RHWb pGfoYZ1ebXKkWWtgKb4w lQdnmSsbRD1xGTLo nhbgm882QoAiv6zyKAQu aCDyKFflHHI0Z56rn8Z4 KTSpIAPvXQN1vIA0kQ1j bGlnbjogbGVmdDsg rzWrmAohMClcSJwqP550 IHRvcDsnPkJpcnRoIERh fLY5OC65LM24yMGje3L1 iUB8V1AuVCPxmlha nwsahXL7UJDrEPCnfU45 Eu1sfGugFe2yWJFgOMU0 UWIuaPQrP4LioF9fOdGd URNiSSOwQ1BalFCs GWdtF681HPfrCtL1CIAp czDmI7MuTATlnKpvQeC7 t3L9Uz9SC0X1VG31MY81 aPJgu6V8cOC1C8Mg EYKvbqnkuxlmgAK6IBTd LPNdcA35Jh4ykXzxAo3i QGJtGVX2OKIlfLXfO7Cd sQ3eRtOeKFAiISRl I6GvqXSjKSqwE056CJuk BdA3RIHzjtGrR5OlYRUu uBiqVxJ5l6O0Ry8KIAa0 ZX21DZ07gWMjl5P8 dDI7A7KwXGSslthdtheu uXU4HVLrYOZuaC79Xv9l hHkvQo2sGLBtUUV1SBTa rYKdC2MlsQ3aYyQu EVVlHWEkA1PduWGkYFfz H808CFihZcF0KWMogfXa G0UkBVDdbZsxYlD2c7U4 Ra2UNYKgWT15XQR4 yXY7GA84WD60I3GoWyxi dGFibGU+PHRhYmxlIHdp ZHRoPScxMDAlJyBzdHls MZ1vSm0xWLKfNDCf cUpesDCqXrUbf2koOPQj SDvrBZ6xyLnyV0XjtIR5 NRKeq4g9Xe78I90yZ6Ld dXA+KIZafTH8sNF0 mA2rFgWtQjU7VMivE822 TtNfxYBtDzfej6lce5ry gXk2XmD1ZIAmfwPqwRib TUY2j4StNz93B33k IHdpZHRoPSIxNSUiIHZh nHderi2pkS9vEz3+PGNv lJR8sEA0uC1qTdKoAzH5 YPhgK862IkNonNEq Hcdfw0zlb2nhnFd2EkIi YJGhgmMrkZubTLV9h1Zz St84G0DnmCvyz1EfAkd1 on44hDYov7S6iVK5 A1NhGSUkdmultTSkgNfa VA5yKWNdbzaaPLDtbE6i EVAaC2j3ZaTkQpQ3GIwr H8GhmgO5ODQjsBFa BShxEAZ5P99uz1R5MUAp JKRnVSQ0jFR4nS4wpUms bjogbGVmdDsgdmVydGlj WLuyBZesS038NGGq qEdhQZSzcD8sODIcpONq dHjeDM7nGZEedpshRjQN X7GUZ34DBYUFV6APJoLr JFlIPX16U2CdSmi3 FKVwhHcjSA4mnLThOJoy Uo5zjUbpqOquUV9oVXPx mjybKQAtqO1vTFGqjWQd qGnvOL1bPTBgwugn y972YhWwRAN8ZWJvaDLq S0GwiV2lZeHnATNqRIEi L7SmpXRzXKimU929CTgz IrU1FRSddeMhF1Cc SUXvoOqdGfG5p3I8Ji1z NA8bWa3sTLG4XV85VK16 sNXrm6T1vEN4I6EcFGXq hzdoujufbOW6MWPz GUYgnT58iVEaADwnUi5q g7G0r549CZJvVAWpmA22 On6poBqmAGWxrOHOpN1d rjqrh2lgcrefMbXs QKWfVYs1FHz7DGQeyEks CdGqMPY2CeN6IWK2tEEv oO4jcKnqkzudfD0aZfz+ YIUoSOFjznD2P6Ba Loc8IYJjbGujKT5sbDMz SYpeQf2vkTnrjWbkPQ3z NGYpvrryPASnzM8hBCTq eRZxtYokGB9fQAGr ggklw126UwKlXKU5ELZv fHKdU2PuyA1dEaYhVVSm YMSdG0VpaJWiZHqsZ957 CGreNhH8GLWptxUu L2XcLKExxXgaZhB1m7I3 Ro2HJYqHBL21LR87pJNc y1Y6kPE4N6WlXYGtfuna yupntWC9BMQlMLWv yG28aBGdMYnqYo6jo1G9 o788DMVeVJYkjB92Vs6o nHiiJZSpeDBJqS1jxajq g2emtnhbTiZiKJWs NAy0WHe2EZLkjEjmTfSl MIH3HeS4ZXG3jCJbfF4j hKtpeqawwZ3rGvk+RW1l gddwhsR1ZV54AT12 Z4QsKqupyQHhiSD+PHRh YmxlIHdpZHRoPScxMDAl ZxXgfFsjMQ9lKc6vNMRy LWNvbGxhcHNlOiBj l5wrAYAcGXwkFY1djPhf N8QccFT5EOQys3o1Yr42 K34pS1NpjWD+PGNvbCB3 kGT1yJ3fOdPjQiM9 FFctR786KgMvtQKvCwsl m2ykm2skgQy4AtAqANBc vcRrqOllDMK8h9QfXp47 D70aFShrFSVyCPVm ELRiTOYonJzuny7ptB2w Ii8+MHDipMM1zEC4gX8f NxUfYnS9EZlhH535KvFr wOYqVrezF51uH1Lp dXA+WODuUus4LBJvnNbm HC3dxGKfVJtmVh5bMYU3 DgSnLfAwVQsyT5PsXZPv lhauvsmifEL2RUZm KRGdfT29Gc4xzBaoUq4v BLOqMQY7QDPgbDDhC9Xv wZ4aEuWaALGiDHLkQ4Zc pOVuLZimV558EZsd BaG3NZItubKkE4IwPIQp tUraSmF7a8A2Fs1XeFni kQYrFJ2yGcNeVId4Q0Ya Viu3ZHXktUsaQA0s oEIzFPuxPd5ztUxuuXhp QQ2sTGOozuuvu507CeHn o9whLYFtaLFkZUneRQT4 P07vy6X4SJCgBHIi TGH5dOX9kZ0lhRxmgihs bGVmdDsgdmVydGljYWwt VYqmH331XOOtmDjmQfBD Kls8T4KdDbm1FPQr vIddRI4raBSpFJeiDq2y gBdzrOjcMY0dJTDiokve b879AlZtk6yoWZOkuAFw VPqkZEE5B00cz0D5 XPFnABRoVBN3kYW6sL9w bGlnbjogbGVmdDsgdmVy bVerFPskCXdxQ114NOJd zHxqLy1MKkw1A9Qz Iju7JBWfaPvjLG4egKIx AMakGo4zzGflaShoFL5z ESPsvvubw330PsRjd2xq IDEwcHQgVGltZXM7 H14nb4Y8QTNzWSXwYYL4 xPT9dP9doSlygmkekSMk dDsgdmVydGljYWwtYWxp M929KZRmrRgrZuRv eWVyOjwvdGQ+ZU08fi76 A1DyYwhmDwr6BFZeVXV2 xIB0eH1cWPBtDFtxi7F7 xDC8M0FbzeWxyj8l b2x (more content not included)... [facility] Coding Summary HTMLBase 64 ZfpzuyynAJy5eYu+PGhl YWQ+IE9ZPAHoZ27byABz iK3KR1yOAB7HDDMQLOYM LZ9PPX3meFY7HShlE3Xd biAv OhledHJwGB35PYk5YPO6 zCmoETilfK3ndPCmY7j0 HwZaCS15eM76KSbiPOKs ObN8HsDojquyjKMb F3jbPvTraNKdRds+PHRh YmxlIHdpZHRoPScxMDAl PwQszVhdIY8qVe4xUINn LWNvbGxhcHNlOiBj y8noXBUuAMwgYJ8xdOit C7DzcBN9RZKjm9r4Fy18 dHI+KKOfATU3wJpaYEcc b859SeNsu7dgRWF7 wIWqHLczODT9B70pk6U7 LLQoYAZgNWO9pPP7iJ6o uMwqlknzU1DmrLBtFpZ9 JME4cWMdcX2ekIai wdkdcL7eXsa+W66ICR0M VXGBDN0URfa3W8GvChuj dHI+NS53LKDhWE79nVXl dAOcc8kxrDp8MzGs LNNnYLU9sTgvLPzxs9Ra TLZrA59kgDFav1A2MAKm gPexpKItQiJqkPQ3gE7x PUmmtibyy3qekxiu Knigr4xeqf34fV88V59v WNvvJKFcAJI2ZVVmHHCi fIkkin2qxS7pFj1+IDxj g8nra0adkZw3PaCk LRMfmnFktQfuUSI2u1Vu Mv80D0KbvQxij0GoHde6 xs24aITet9D8mDU7SXok IRItaE2kQQlaDpJ1 JMQuCeZcbX37zFDgKWwu In3cfBrgpQttCJ4sXZGq msnfEMHxrI9iOKHwvFHl xHnkYF0tKBDtoqbw r012ErQtTBD9HCNvvVOq Y6GzeQ0lXxVnBWSmOELs A6DgoVInOCcoU711ZVwm KvT9AYDakqHkV6He UNRmaUcjAbV0n5F6Xh5A p8GngidsWOR4SEhrKGU1 ItF0TfRxZqM4C3VvBde1 CJAhwYqtHC6lU2Mk ZOXijntkyokwfYM3XILe NWTniP07kLTyEOjtIo3f b6U8m034XSTcSRHqzP23 Qz1fnRkkKAIhyGIL vE4nlpufi5webbvgFbVt PNRtMIx7HDb6YQUgoGkx UtYpXDN3WxD6KCX6eQCq tP8knUhjtgbynN0h Oyc+H48eqX3nCUY7CER5 ndfdBNPikwXvHD72XB20 Z6XyUdbsePCnvDX+PGRp yjHiiLzaRZ6gLcDi h4gpo0QmDEbuL6AlJBHi PYtnKna2JZDlASN5rED4 kW3fKXEiCSorw8H1rSI7 A1LebeMwqv4uw4qs HKQdGBgpN99jmFJjq3M2 CJSgyPC2IYAqwPtnXbAz tL31Ulk+MLDfoMlfc7Ue Hhuhy1zfz8dgfWg0 IjMwJSIgdmFsaWduPSJ0 d5JyUn79W18yFToxPDAd JQZqBPRyTSSnmQasag3r yP1fJj1+PGNvbCB3 uVZ6pB4oGSYrCnT8OIqn M994QpPyiJDzWeogc9pu n3zyzUe9OtVfRHJprkMp oSusZAY1g6ZuEt16 E78tILhoGMWzHVQwJCMl VKJunWblcq1aqL2kHp2+ WT6tj4ojen23uH35dXM+ GNDsRLI7cFtlDDlw MGLxnK1pMVliWwC4FWOh ZqAkpP16lFIbEDakFp5s iVpptYapLK4oDCAyfmpb x842RfRzh6atYEQv bAWcFFksNXA2U93gx2V4 SGDyUUAuPHQ8cWX9hA9k bGlnbjogbGVmdDsgdmVy fNdtUXagHZxfT692 IHRvcDsnPlBhdGllbnQg JzBxVDj4A3UrTyy6WUUq aFfqTK4kwWUkIKtwTs8j vJcjvSzgMI5jHIBh rdtug646MaXqq7whTBJn vOEtKNecVGU0N17zm3D1 VLDwNXFsGDQ0tPM8kI9s bGlnbjogbGVmdDsg kyZjnMvfRAdkIGdeZ622 IHRvcDsnPkJpcnRoIERh vJP9XH57IZ86yMPsv8D8 fXY6Y4UxHNHcimmm nwojbLG7EJHqBPArcV78 Ku2cmKqjEt3xRQWkYNR0 FZKrcYJrB9WsgI9lKyAe TZYzUVQwY2SolKKk NAltS602OWsaJzR2QOAm viHhH6LiSIObuAwmFyX2 w6T1Da2TM3X2BK59OY04 uSBix7X9cTN0P5Yq DRUczwyenxgmyQH8UJKs PKYgoW32In7ozNtvKq3h FQRrXRC8SPGmxUSfU5Gw aS0aJiKkLDDsNLKc I8IioYGjXFczQ321XCzr WkD4QXQopvFnB5EcGJBy xEknZnP8c7E0Zk7HRGk1 MB17YU98dUYdd7L4 aAB3G3QmTYJhfjfhidfb kXM0EJKeKMEflR91Pp9q iVsgIw3jUAVgIWD6UEYp oECmV0DkbC5qRjZp WJRjKINiF3BjyNHiUNjx Y235SQlxGvB6OVAlxsJj L8DfKIIrgCeeYdV6n9Z0 Cf0PNOPcGC51JUI1 hZX1SH33ET13E4AaEbrk dGFibGU+PHRhYmxlIHdp ZHRoPScxMDAlJyBzdHls NI2yYp8eDFVoLRHk sTafiATnAcJpl7iiSZFv HLzjMK6kzUzcH8TlvVW5 PZGsf5p6Wo33N27iI3Xm dXA+TELhhBZ7tAE1 rL1zUiIeMjJ3LDdvL206 ZxDghVWbSccqc1yuc5ey fQr2UnS3DFAlblIrnMem NFE0r5YaSw60Z48c IHdpZHRoPSIxNSUiIHZh rSgiso9vzL9sSd1+PGNv dUC6uUH8oE9nAiLgArO9 CHhlN396AiIkaAXf Tucpa6mtm3fzqWi8IuAl WUToddLkcQtfRAA0g1Ql Py97D3LiwOdie1ZtFwj8 lr71qQNbc2E3oQW5 F3FpMQDkpfjnzTUvoBbm GX8zHDApthmoFGPacD8n YVOkP4p5CnYoAzT8DTqq M6CeluD9PPOnyWLp TEkcDWY7C27gb7C7KBFu TINqKRL1wMU3bZ6yiKdb bjogbGVmdDsgdmVydGlj IXehLMbwA515WXTp qIffXKZacK2xBJIgwKRr iOfdBN8hJVEthiemCzWC G1TGK66NDBSNL5SGZxVu WVhIFH95L5PuFmr2 KSUtqTivPN2ozBToNWbh Lg8cxYvgtOjtVV8rYEKh aqpyVFUshM9fMMWisFEz zEysGB9bMVNwpehy q233QwBaIIT0BVUmaQIw I5OlcB7zJfHjNREgRNTn T9NmuOJfOEoaC221INrk CbH5HIYfujUyC1Sp RHEfxNdmNoT6o9O7Yp2m OO5gTx3hTXG6VS59UN40 kYGrh7V3gGR6I1GgSUSr ziwbayxtrQU6HZPz BMYfnX50bQOxOZooJu4e x8I8d217ERAlSZZbwY98 Tk8hwKusMBRdaTCZmJ5p wtxik3gcobqrWyYy KTRlLJy6PPg0SAVadYal XrUsKIS9VrI7FGV0oZEx kX0rnQaxevkxcC9cVmn+ JHYtMESxdsN0T5Ro Kwb2NHPeiZioAG6azYCf AQctZk9tsAcnlGrkAN6s LJLkzgerADYtcV5bEABa xKWurJcoUO7hBTXb ynliy017ZsNwATE8BLEx qHRxR3XaeR7wBaDiGBNm KQVgW0VczXZbLSpnV795 UDvdEhR4GDQaxlIy V1NvBLDgiQdvWnI2v3N1 Ej8TOCwHSN69SL27xMUm x5Q4yKZ9X3LjCFIvthxs vmwceVQ7NZKfOOSt uM56eIUlXPfgEe0ei3D0 y505KDIbMTKzqA15Cy1j zLkvHPKceBCQuW3snlvw g7vzcuteLvQfABWb IXb0PMe2SRXtdHnsKfGu OOE7NwR2YBS6eIDntY2u qPbqknoacX6hGfk+RW1l udlojfP4VG31YK30 S7RdDosvuNEcrLH+PHRh YmxlIHdpZHRoPScxMDAl MmJteEmhVJ6vUw6aUIKu LWNvbGxhcHNlOiBj p0swGAOrXZhxQE1zjJxx K1JyrYL8LMYoq5w7Wr63 B39dH8BrvWG+PGNvbCB3 xKY3wB6ySzGwByY1 MLwgO753UhMigUFaMfhl t0bbz6lmnWm0PhMtHKAh soNfjMupIWP1z4SeSc89 X57rSDbxYYJpLZFf VSAsPOJjaEgfwb3naL0k Ii8+BFFsfIX2vUL6sC5c CtGtAiX2ROvbY184YeMq rACvAlmnF86yY1Ur dXA+GLHvSbw8MYUpyFsk YO1gcSNvYDpaIt1hNXY7 ZtCeVsMqOQhxW5IxJYJr schmvesejTV5MQIm MPYxxH28Ll1ndIvqDv8j GDJvPKM8ZSGgmNZwB1Nt lH6uMlRpJZVlPWFwU0Vy qOToPFcuK667LBel KyG5PHRfjiAiA7MsEEFe oIxyBrK2b0J7Rs2QyHjz bPFcVP2rBkHlDSv7V9Ui Ewk3EMRikBsnUH2h wQWfLVkzEp5gdUtcrAya XF5xXCUwxclyp379OjKr o2tsGPFhyAJzCEagCQJ2 F63pw9K8PTOyTJIi BQI7yLD1vT2rfCxsgqsw bGVmdDsgdmVydGljYWwt OSfxL840GLTrgEytXlYR Nnb3H7HcEpb1QOEg nRwdQY5gmMAyTRkqGp9l vIhonRheBW1sXZBayoyo a083LuBqe5qsYQKowLJr AUlyRSO7P93vr7F7 LCOoTEVxHQW5kWR9pO6g bGlnbjogbGVmdDsgdmVy vGehSVdkSWwyN731IGQl kZtuOf3GFvx8P6Cu Lwn4TFUiwSppTJ1njCDw FGpqVb8gsBgvvYavDH4k PEDrpztjk374IxSqy3eh IDEwcHQgVGltZXM7 W44rx4J9WRVeXTSyOIF5 pVA7kO9bbXlvxuwwsMCa dDsgdmVydGljYWwtYWxp G274RIGijXpnYyXe eWVyOjwvdGQ+VZ02da90 Z3XfExwmJhi5LUNrOCR3 xDF5kM7qAAHgZIpmg8M8 vYV1J5UdarBkpm4t b2x (more content not included)... Normal [facility] ED Clinical Summaryon 2020 ED Clinical Summary [facility] - Emergency Department [address] [place] [id number] ED Clinical Summary PERSON INFORMATION Name: ROSA EASTMAN Age: 55 Years Sex: MALE : 1965 MRN: Acct#: Visit Reason: Hand pain-swelling; RIGHT WRIST PAIN Arrival: 04/01/2021 19:05:43 Discharge: 04/01/2021 19:35:00 LOS: 000 00:30 Check In: 04/01/2021 19:05:43 Checkout:04/01/2021 19:35:00 Address: [address] [place] [address] PCP: Provider, None PROVIDER INFORMATION Provider Role [...] Follow-Up: With: Address: When: Andrew Mckenzie DO [address] [place] [id number] Within 3 to 5 days DIAGNOSIS: 1:Sprain of right wrist Patient Understands: Yes - Patient/family/careg iver verbalizes understanding of instructions given Comment: Normal [facility] ED Patient Summaryon 021 ED Patient Summary [facility] - Emergency Department [address] [place] [id number] PATIENT DISCHARGE INSTRUCTIONS Patient Information Name: ROSA EASTMAN Age: 55 Years Date of : 1965 Reason For Visit: Hand pain-swelling; RIGHT WRIST PAIN Arrival Time: 04/01/2021 19:05:43 Primary Care Physician: Provider, None Attending Physician: Medhat Hernandez MD Comment: Visit Diagnosis: Diagnoses This Visit Hand pain-swelling ([id number]) Sprain of right wrist (S63.501A) Prescription Information: If you have been given a prescription for narcotics, seek immediate medical attention if you have any difficulty breathing or any sudden status changes such as confusion and sleepiness. If you or anyone you know is experiencing suicidal thoughts, mental health, alcohol and/or drug addiction problems; contact the [facility] 02/06 Crisis Hotline -Text 3MIVF to 990611. If you received any narcotics, sedation, or [...] documents With: Address: When: Andrew Mckenzie DO [address] [place] [address] Within 3 to 5 days Medication Information: The exam and treatment you received today in the [facility] Emergency Department were for an urgent problem and are not intended as complete care. It is important for you to follow up with a doctor, nurse practitioner, or physician?s butcher's assistant for ongoing care. If your symptoms [...] so we can reach you if necessary. [facility] Emergency Department has provided you with a complete list of medications post discharge. Please inform your shift leader/provider of your visit and for further instruction on these medications. Any specific questions regarding your chronic medications and dosages should be discussed with your primary care physician(s) and/or pharmacist. Medications to Continue That Have Not Changed Other Medications acetaminophen-hydroc odone (hydrocodone-acetami nophen 5 mg-325 mg (Holden 5)) 1 tab(s) Oral Every 6 hours [...] With poor (more content not included)... Normal [facility] Vital Signs Date Time Vital Sign Value Performing Clinician Facility 12-28-2024 13:00-0500 Body height 172.7 cm Charmaine Lowe PA Work Phone: [facility] 12-28-2024 13:00-0500 Body mass index (BMI) [Ratio] 30.87 kg/m2 Charmaine Lowe PA Work Phone: [facility] 12-28-2024 13:00-0500 Body weight 92.08 kg Charmaine Lowe PA Work Phone: [facility] 12-28-2024 13:00-0500 Diastolic blood pressure 78 mm[Hg] Charmaine Lowe PA Work Phone: [facility] 12-28-2024 13:00-0500 Systolic blood pressure 132 mm[Hg] Charmaine Lowe PA Work Phone: [facility] 12-14-2024 14:15-0500 Body height 172.7 cm Hilario Small MD Work Phone: [facility] 12-14-2024 14:15-0500 Body mass index (BMI) [Ratio] 31.02 kg/m2 Hilario Small MD Work Phone: [facility] 12-14-2024 14:15-0500 Body weight 92.53 kg Hilario Small MD Work Phone: [facility] 12-14-2024 14:15-0500 Diastolic blood pressure 78 mm[Hg] Hilario Small MD Work Phone: [facility] 12-14-2024 14:15-0500 Heart rate 91 /min Hilario Small MD Work Phone: [facility] 12-14-2024 14:15-0500 Systolic blood pressure 136 mm[Hg] Hilario Small MD Work Phone: [facility] 09-06-2024 13:16-0400 Body height 172.7 cm Candidaadelaida Sidhu PA Work Phone: [facility] 09-06-2024 13:16-0400 Body mass index (BMI) [Ratio] 32.54 kg/m2 Candida Hill PA Work Phone: [facility] 09-06-2024 13:16-0400 Body weight 97.07 kg Candida Sidhu PA Work Phone: [facility] 09-06-2024 13:16-0400 Diastolic blood pressure 80 mm[Hg] Candida Sidhu PA Work Phone: [facility] 09-06-2024 13:16-0400 Heart rate 59 /min Candida Sidhu PA Work Phone: [facility] 09-06-2024 13:16-0400 Respiratory rate 16 /min Candida Sidhu PA Work Phone: [facility] 09-06-2024 13:16-0400 SaO2% (BldA) [Mass fraction] 99 % Candida Sidhu PA Work Phone: [facility] 09-06-2024 13:16-0400 Systolic blood pressure 120 mm[Hg] Candida Sidhu PA Work Phone: [facility] 12-09-2023 15:33-0500 Body height 172.7 cm Hilario Small MD Work Phone: [facility] 12-09-2023 15:33-0500 Body mass index (BMI) [Ratio] 31.02 kg/m2 Hilario Small MD Work Phone: [facility] 12-09-2023 15:33-0500 Body weight 92.53 kg Hilario Small MD Work Phone: [facility] 12-09-2023 15:33-0500 Diastolic blood pressure 78 mm[Hg] Hilario Small MD Work Phone: [facility] 12-09-2023 15:33-0500 Heart rate 79 /min Hilario Small MD Work Phone: [facility] 12-09-2023 15:33-0500 Systolic blood pressure 130 mm[Hg] Hilario Small MD Work Phone: [facility] 02-20-2023 14:00-0400 Body height 172.72 cm Josué Evangelista Other [facility] Other 02-20-2023 14:00-0400 Body mass index (BMI) [Ratio] 32.08 kg/m2 Josué Evangelista Other [facility] Other 02-20-2023 14:00-0400 Body weight 95.71 kg Josué Evangelista Other [facility] Other 02-20-2023 14:00-0400 Diastolic blood pressure 80 mm[Hg] Josué Evangelista Other [facility] Other 02-20-2023 14:00-0400 Systolic blood pressure 130 mm[Hg] Josué Evangelista Other [facility] Other 01-22-2023 09:40-0400 Diastolic blood pressure 84 mm[Hg] DO Britt Rumschlag Work Phone: [facility] 01-22-2023 09:40-0400 Heart rate 70 /min DO Britt Rumschlag Work Phone: [facility] 01-22-2023 09:40-0400 Respiratory rate 16 /min DO Britt Rumschlag Work Phone: [facility] 01-22-2023 09:40-0400 SaO2% (BldA) [Mass fraction] 96 % DO Britt Rumschlag Work Phone: [facility] 01-22-2023 09:40-0400 Systolic blood pressure 136 mm[Hg] DO Britt Rumschlag Work Phone: [facility] 01-22-2023 08:47-0400 Body temperature 98 [degF] DO Britt Rumschlag Work Phone: [facility] 01-22-2023 08:12-0400 Inhaled oxygen flow rate 10 L/min DO Britt Rumschlag Work Phone: [facility] 01-22-2023 07:35-0400 Body height 172.72 cm DO Britt Rumschlag Work Phone: [facility] 01-22-2023 07:35-0400 Body mass index (BMI) [Ratio] 32.4 kg/m2 DO Britt Rumschlag Work Phone: [facility] 01-22-2023 07:35-0400 Body weight 96.8 kg DO Britt Rumschlag Work Phone: [facility] 03-13-2022 11:45-0400 Body height 172.72 cm Harvey Holt Other [facility] Other 03-13-2022 11:45-0400 Body mass index (BMI) [Ratio] 32.23 kg/m2 Harvey Holt Other [facility] Other 03-13-2022 11:45-0400 Body weight 96.16 kg Harvey Holt Other [facility] Other 01-14-2022 14:30-0500 Body height 172.72 cm Harvey Holt Other [facility] Other 01-14-2022 14:30-0500 Body mass index (BMI) [Ratio] 32.23 kg/m2 Harvey Holt Other [facility] Other 01-14-2022 14:30-0500 Body weight 96.16 kg Harvey Holt Other [facility] Other 09-19-2021 11:00-0500 Body height 172.72 cm Harvey Holt Other [facility] Other 09-19-2021 11:00-0500 Body mass index (BMI) [Ratio] 32.23 kg/m2 Harvey Holt Other [facility] Other 09-19-2021 11:00-0500 Body weight 96.16 kg Harvey Holt Other [facility] Other 09-19-2021 11:00-0500 Diastolic blood pressure 87 mm[Hg] Harvey Holt Other [facility] Other 09-19-2021 11:00-0500 Systolic blood pressure 130 mm[Hg] Harvey Holt Other [facility] Other Encounters Encounter Date Encounter Type Care Provider Facility Start: 12-28-2024 End: 12-28-2024 Bamboo flowsheet Charmaine Lowe PA Work Phone: [facility] Start: 12-28-2024 End: 12-28-2024 [employer] Charmaine Lowe PA Work Phone: [facility] Start: 12-28-2024 End: 12-28-2024 Office outpatient visit 25 minutes Charmaine Lowe PA Work Phone: [facility] Comment on above: Radiculopathy, cervi alex region (Primary Dx); Memory change; GIRMA (obstructive sleep apnea); Balance problems Start: 12-28-2024 End: 12-28-2024 ambulatory CHARMAINE LOWE Not Available Start: 12-14-2024 End: 12-14-2024 Office outpatient visit 15 minutes Hilario Small MD Work Phone: [facility] Comment on above: Benign localized pro static hyperplasia with lower urinary tract symptoms (LUTS) (Primary Dx) Start: 12-09-2024 End: 12-09-2024 Telephone encounter Teresa Mendoza LPN [facility] Start: 09-13-2024 End: 09-13-2024 ambulatory Richard Lezama MD Facility: [facility] Start: 09-06-2024 End: 09-06-2024 Bambol[employer]ara flowsheet Candida PUENTES Work Phone: [facility] Start: 09-06-2024 End: 09-06-2024 Bamboo flowsheet Candida Sidhu PA Work Phone: [facility] Start: 09-06-2024 End: 09-06-2024 Office outpatient visit 15 minutes Candida Sidhu PA Work Phone: [facility] Comment on above: Balance problems (Pr imary Dx); Hyper reflexia; Lightheadedness; Lumbar back pain; GIRMA (obstructive sleep apnea); Memory change Start: 09-06-2024 End: 09-06-2024 ambulatory CANDIDA SIDHU Not Available Start: 08-23-2024 End: 08-23-2024 ambulatory Richard Lezama MD Facility: [place] Start: 06-28-2024 End: 06-28-2024 ambulatory Richard Lezama MD Facility: [place] Start: 04-22-2024 End: 04-22-2024 ambulatory CANDIDA SIDHU Not Available Start: 04-19-2024 End: 04-19-2024 ambulatory Richard Lezama MD Facility: [place] Start: 03-15-2024 End: 03-15-2024 ambulatory Richard Lezama MD Facility: [place] Start: 02-09-2024 End: 02-09-2024 ambulatory Richard Lezama MD Facility: [place] Start: 01-12-2024 End: 01-12-2024 ambulatory Richard Lezama MD Facility: [place] Start: 12-22-2023 End: 12-22-2023 ambulatory Richard Lezama MD Facility: [place] Start: 12-09-2023 End: 12-09-2023 Office outpatient visit 15 minutes Hilario G Geovanny MD Work Phone: [facility] Comment on above: Benign localized pro static hyperplasia with lower urinary tract symptoms (LUTS) (Primary Dx) Start: 12-08-2023 End: 12-08-2023 ambulatory Richard Lezama MD Facility: [place] Start: 10-15-2023 End: 10-15-2023 ambulatory CANDIS N DEXTER [facility] Start: 10-14-2023 End: 10-15-2023 ambulatory BRITT RUMSCHLAG [facility] Start: 03-04-2023 End: 03-05-[address] DOCTOR LANCE Facility:[facility] Start: 02-28-2023 End: 02-28-2023 ambulatory Josuéadelaida Evangelista Other [employer] Other Start: 02-28-2023 Telephone encounter Josué Evangelista [facility] Start: 02-20-2023 End: 02-20-2023 ambulatory Ojsué César Other [employer] Other Start: 02-20-2023 Postop follow up vis it related to original px Josué César [facility] Start: 01-22-2023 End: 01-22-2023 Admission to same day surgery center DO Britt Rumschlag Work Phone: [facility] [place] Start: 01-22-2023 End: 01-22-2023 ambulatory Josué Adelaida César Facility:[facility] Start: 01-22-2023 End: 01-22-2023 ambulatory DO Britt Rumschlag Work Phone: [facility] [employer] Work Phone: Start: 01-13-2023 End: 01-13-2023 ambulatory Josué Adelaida César Facility:[facility] Start: 01-13-2023 End: 01-13-2023 ambulatory DO Britt Rumschlag Work Phone: [facility] Work Phone: Start: 01-13-2023 End: 01-13-2023 Patient encounter procedure DO Britt Rumschlag Work Phone: [facility] Work Phone: Start: 12-06-2022 End: 12-06-2022 ambulatory Josué Evangelista Facility:[facility] Start: 12-06-2022 End: 12-06-2022 Patient encounter procedure DO Britt Rumschlag Work Phone: [facility] [place] Work Phone: Start: 08-10-2022 End: 08-10-2022 ambulatory [facility] Facility: Start: 07-08-2022 End: 07-08-2022 ambulatory Candida Sidhu Facility:[facility] Start: 07-08-2022 End: 07-08-2022 Patient encounter procedure [facility] [address] Start: 06-21-2022 End: 06-21-2022 ambulatory Candida Sidhu Facility:[facility] Start: 06-21-2022 End: 06-21-2022 Patient encounter procedure [facility] [place] Start: 03-13-2022 End: 03-13-2022 ambulatory Harvey Holt Other [facility] [employer] Other Start: 03-13-2022 Office outpatient vi sit [address] [facility] Start: 01-14-2022 End: 01-14-2022 ambulatory Harvey Holt Other [facility] [employer] Other Start: 01-14-2022 Office outpatient vi sit [address] [facility] Start: 10-16-2021 Admission to [facility] Harvey Holt [facility] Start: 10-16-2021 End: 10-16-2021 ambulatory Harvey Holt Other [facility] [employer] Other Start: 09-19-2021 End: 09-19-2021 ambulatory Harvey Salcidocamilo Other [facility] [employer] Other Start: 09-19-2021 Office outpatient ne w [address] [facility] Procedures Date Procedure Procedure Detail Performing Clinician Start: 12-14-2024 MEASURE POST VOID RESIDUAL Hilario Small MD Work Phone: Start: 01-22-2023 Decompression of uln ar nerve DO Britt Rumschlag Work Phone: Start: 12-06-2022 X-ray of cervical spine DO Britt Rumschlag Work Phone: Start: 07-08-2022 MRI of head Plan of Treatment Date Care Activity Detail Author Start: 02-01-2025 End: 02-01-2025 Patient encounter procedure 02/01/2025 12:40 PM EDT Office Visit [facility] [place] [address] [place] [id number] Charmaine Castro PA [address] [place] [address] [facility] [place] Start: 01-25-2025 End: 01-25-2025 Patient encounter procedure 01/25/2025 11:00 AM EDT Procedure Visit [facility] [place] [address] [place] [phone] Mani Singer MD [address] [place] [address] [facility] [place] Start: 12-28-2024 End: 12-28-2025 EMG 2 Extremities EMG 2 Extremities Neurology Routine Radiculopathy, cervical region Expected: 12/28/2024 (Approximate), Expires: 12/28/2025 [facility] Work Phone: Comment on above: Expected: 12/28/2024 (Approximate), Expires: 12/28/2025 Start: 12-28-2024 End: 12-28-2024 [facility] Comment on above: Arrived Start: 12-14-2024 End: 12-14-2024 Patient encounter procedure 12/14/2024 2:15 PM EST Office Visit [facility] [address] [place] [address] [facility] [place] [address] Hilario Small MD [facility] [place]note 2][address] [place], [place] [id number] [facility] Start: 12-09-2024 Adult BMI Screening Adult BMI Screen ing [facility] Start: 12-09-2024 Tobacco Screening Tobacco Screening [facility] Start: 12-08-2024 End: 11-08-2025 Prostatic specific antigen, diagnostic Prostatic specific antigen, diagnostic Lab Routine Benign localized prostatic hyperplasia with lower urinary tract symptoms (LUTS) Expected: 12/08/2024 (Approximate), Expires: 11/08/2025 [facility] Work Phone: Comment on above: Expected: 12/08/2024 (Approximate), Expires: 11/08/2025 Start: 09-06-2024 End: 09-06-2024 Patient encounter procedure 09/06/2024 1:20 PM EDT [facility] [address] [place] [address] Candida Sidhu PA [address] [place] [address] [facility] Comment on above: Arrived Start: 07-11-2024 COVID-19 Vaccine ( season) COVID-19 Vaccine () [facility] Start: 07-11-2024 Influenza vaccination [facility] Start: 03-10-2024 Tobacco Counseling Tobacco Counselin g [facility] Start: 07-11-2023 COVID-19 Vaccine () COVID-19 Vaccine () [facility] Start: 07-11-2023 Influenza vaccination Influenza Vacc ine [facility] Start: 01-22-2023 End: 01-22-2023 [facility] Start: 07-08-2022 MRI of head MR head/brain wo con Fi relands [facility] Start: 07-08-2022 End: 07-08-2022 Patient encounter procedure Departed Clinical [facility] [address] Start: 2017 Administration of varicella zoster vaccine Zoster (Shingles) Vaccine (1 of 2) [facility] Start: 1986 DTaP,Tdap and Td Vac cines (1 - Tdap) DTaP,Tdap and Td Vaccines (1 - Tdap) [facility] Start: 1985 Adult BMI Follow Up Plan Adult BMI Follow Up Plan [facility] Start: 1979 Depression Screening Depression Scre ening [facility] Start: 1967 Screening for malign ant neoplasm of colon [facility] Start: 1967 Tobacco Counseling Tobacco Counselin g [facility] Patient referral [facility] Work Phone: Immunizations Immunization Date Immunization Notes Care Provider Fa cility 03-07-2021 COVID-19 mRNA, Comirnaty (Pfizer) [facility] 02-14-2021 COVID-19 mRNA, Comirnaty (Pfizer) [facility] 12-08-2020 influenza virus vaccine, unspecified formulation Candida PUENTES Work Phone: [facility] Healthcare Payers Date Payer Category Payer Unknown 2022 Medicaid [id number] 2022 Medicaid [id number] 2022 Self-pay [id number] 1965 Unknown [id number] 2.16.84 0.1.239511.3.579.2.593 1967 Unknown [id number] 2.16.84 0.1.545225.3.579.2.593 1967 Unknown [id number] 2.16.8 40.1.323686.3.579.2.173 1967 Unknown [id number] 2.16.8 40.1.373817.3.579.2.173 1967 Unknown [id number] 2.16.8 40.1.196533.3.579.2.173 1967 Unknown [id number] 2.16. 840.1.482840.3.579.2.196 1967 Unknown [id number] 2.16. 840.1.135115.3.579.2.196 1967 Unknown [id number] 2.16. 840.1.163161.3.579.2.196 1967 Unknown [id number] 2.16. 840.1.584670.3.579.2.196 1967 Unknown [id number] 2.16. 840.1.104524.3.579.2.196 1967 Unknown [id number] 2.16. 840.1.748068.3.579.2.196 1967 Unknown [id number] 2.16. 840.1.280359.3.579.2.196 1967 Unknown [id number] 2.16. 840.1.713236.3.579.2.196 1967 Unknown [id number] 2.16. 840.1.505009.3.579.2.196 1967 Unknown [id number] 2.16.84 0.1.792329.3.579.2.1259 1967 Unknown [id number] 2.16.84 0.1.521276.3.579.2.1259 1967 Unknown [id number] 2.16.84 0.1.822399.3.579.2.1259 1959 Unknown [id number] 2.1 6.840.1.531076.19 Unknown [id number] 2.1 6.840.1.240557.19 Unknown [id number] 2.16.8 40.1.437275.3.579.2.531 Unknown [id number] 2.16.8 40.1.881528.3.579.2.531 Unknown [id number] 2.16.8 40.1.095307.3.579.2.531 Unknown [id number] 2.16.8 40.1.800550.3.579.2.531 Unknown [id number] 2.16.8 40.1.211170.3.579.2.531 Social History Date Type Detail Facility Start: 04-23-2024 End: 09-06-2024 Sex Assigned At [facility] [employer] Other Start: 10-16-2021 End: 01-22-2023 Tobacco smoking status [facility] Smoker (finding) [facility] Start: 1965 Sex Assigned At Male F [facility] Start: 09-10-2022 End: 04-23-2024 Tobacco smoking status [facility] Smokes tobacco daily [facility] History of tobacco use [facility] Start: 04-23-2024 Tobacco use and exposure User of smokeless tobacco [facility] Start: 04-23-2024 End: 09-06-2024 Alcoholic beverage intake Current drinker of alcohol (finding) [facility] Start: 04-23-2024 End: 09-06-2024 History of Social function [facility] How often to you hav e a drink containing alcohol? Monthly or less [facility] How many standard drinks containing alcohol do you have on a typical day? 1 or 2 [facility] How often do you hav e 6 or more drinks on 1 occasion? Less than monthly [facility] Start: 1965 Sex assigned at Not on file P [facility] Start: 09-10-2022 Tobacco use and exposure Smokeless tobacco non-user [facility] Childcare Unknown [facility] Start: 05-03-2021 Alcohol Comment [facility]AL [facility] Start: 07-12-2015 Sex Male (finding) [facility] Medical Equipment Procedure Code Equipment Code Equipment Origin al Text Equipment Identifier Dates BONE 7MM DUO FORTITUDE SERIES FDA Start: 10-16-2021 Spinal fixation plate, non-bioabsorbable [id number] FDA Start: 10-16-2021 Bone-screw inter nal spinal fixation system, non-sterile ()[id number] FDA Start: 10-16-2021 Bone-screw inter nal spinal fixation system, non-sterile ()[id number] FDA Start: 10-16-2021 BONE 7MM DUO FORTITUDE SERIES FDA Start: 10-16-2021 BONE 7MM DUO FORTITUDE SERIES FDA Start: 10-16-2021 BONE 7MM DUO FORTITUDE SERIES FDA Start: 10-16-2021 Goals Date Patient Goal Desired Activity /State Clinical Notes 04-01-2021 to 12-14-2024 Hilario Small MD - 12/14/2024 2:15 PM ESTTelephone Encounter - Teresa Mendoza LPN - 12/09/2024 1:03 PM ESTTelephone Encounter - Teresa Mendoza LPN - 12/09/2024 1:03 PM EST Note Date & Type Note Facility 12-14-2024 History of Presen t illness Narrative Images from the original note were not included. [address] [place] [address] [facility] [address] Patient: Rosa Eastman Date of : 1965 Encounter Date: 12/14/2024 History of Present Illness: The patient is a 59 y.o. male, an established patient, and is here for followup. He has a history of lower urinary tract symptoms. He had been trialed on VESIcare in 2021. Had some right lower quadrant discomfort at the time and stopped taking it. Symptoms have remained stable. Returns today with a PSA which remains stable as outlined below. No hematuria or utis. Summary of old records: Urinalysis today: No results for input(s): EXTPOCURCO , EXTPOCURCH , EXTPOCAPP , EXTPOCURBS , EXTPOCURBIL , EXTPOCUKET , EXTPOCUSPG , EXTPOCUHGB , EXTPOCUPRO , EXTPOCUURO , EXTPOCULEU , EXTPOCUNIT , EXTPOCUWBC , EXTPOCUBLD , EXTPOCURBC , EXTPOCUCRY , EXTPOCUBAC , EXTPOCUTREP , EXTPOCUPH in the last 72 hours. Last BUN and creatinine: No results found for: BUN No results found for: CREATININE Last PSA: Lab Results Component Value Date PSA 1.07 12/10/2024 PSA 1.02 12/09/2023 PSA 0.61 10/17/2022 No results found for: PROSTATICSP Additional Lab/Culture results: None Imaging Reviewed during this Office Visit: None (Results were independently reviewed by physician and radiology report verified) Past Medical, Family, and Social History Update: The following portions of the patient's history were reviewed and updated as appropriate: allergies, current medications, past family history, past medical history, past social history, past surgical history and problem list. Past Medical History: Diagnosis Date High cholesterol Past Surgical History: Procedure Laterality Date CARPAL TUNNEL RELEASE Right COLONOSCOPY N/A 05/03/2021 Performed by Carlos Olmos MD at [facility] TONSILLECTOMY ULNAR NERVE REPAIR UPPER GASTROINTESTINAL ENDOSCOPY 10/15/2023 Family History Problem Relation Age of Onset Cancer Sister Heart disease Mother Hyperlipidemia Mother Heart disease Father Diabetes Father Prostate cancer Maternal Grandfather Current Outpatient Medications Medication Sig Dispense Refill cyclobenzaprine (FLEXERIL) 5 mg tablet Take 1 tablet (5 mg total) by mouth once daily at bedtime. latanoprost (XALATAN) 0.005 % ophthalmic solution place 1 drop into both eyes every evening as directed rosuvastatin (CRESTOR) 5 mg tablet Take 1 tablet (5 mg total) by mouth in the morning. naproxen (NAPROSYN) 500 mg tablet take 1 tablet by mouth twice a day if needed for pain for 14 days (Patient not taking: Reported on 12/14/2024) 0 No current facility-administered medications for this visit. (All medications reviewed and updated by provider since last office visit or hospitalization) Allergies: Bee venom protein (honey bee) and Penicillins Tobacco History: Social History Tobacco Use Smoking Status Every Day Smokeless Tobacco Never (If patient a smoker, smoking cessation counseling offered) Social History: Social History Substance and Sexual Activity Alcohol Use Yes Comment: OCCASIONAL Review of Systems: General: Negative for chills and fever. Cardiovascular: Negative for chest pain and shortness of breath. Gastrointestinal: Negative for constipation, diarrhea, nausea, and vomitting. Physical Exam: BP 136/78 Pulse 91 Ht 172.7 cm (5' 8 ) Wt 92.5 kg (204 lb) BMI 31.02 kg/m Assessment and Plan: Rosa was seen today for follow-up. Diagnoses and all orders for this visit: Benign localized prostatic hyperplasia with lower urinary tract symptoms (LUTS) - Measure post void residual Problem List Genitourinary Benign localized prostatic hyperplasia with lower urinary tract symptoms (LUTS) - Primary Overview His urinary symptoms have remained stable. PSA normal. He was going to continue to get this is part of his wellness examine returned to see me if symptoms progress Relevant Orders Measure post void residual (Completed) Follow-up: Hilario Small MD This note was created with the assistance of a speech recognition program. While intending to generate a timely document that accurately reflects the content of the visit, no guarantee can be provided that every grammatical or spelling mistake has been or will be identified or corrected. Thank you for your understanding. documented in this encounter [facility] 12-09-2024 Miscellaneous Notes Contacted the Pt. To remind him to get his PSA drawn before his appt on Friday with MD Drew. No further questions at this time. documented in this encounter [facility] 12-09-2024 Telephone encounter Note Contacted the Pt. To remind him to get his PSA drawn before his appt on Friday with MD Drew. No further questions at this time. [facility] 09-06-2024 History of Presen t illness Narrative Subjective Rosa Eastman is a 59 y.o. year old male Chief Complaint Patient presents with Dizziness Neck Pain Back Pain Past Medical History: Diagnosis Date Osteoarthritis Seizure (CMS/HCC) Past Surgical History: Procedure Laterality Date CARPAL TUNNEL RELEASE ELBOW SURGERY EYE SURGERY Family History Problem Relation Name Age of Onset Depression Mother Hyperlipidemia Mother Hypertension Mother Heart disease Mother Depression Father Diabetes Father Hyperlipidemia Father Hypertension Father Heart disease Father Asthma Sibling Cancer Sibling Depression Sibling Hyperlipidemia Sibling Hypertension Sibling Social History Tobacco Use Smoking status: Every Day Types: Cigarettes Smokeless tobacco: Current Substance Use Topics Alcohol use: Yes Medication Documentation Review Audit Reviewed by Sophy Hays MA (Personal Development Coach) on 09/06/24 at 1323 Medication Order Taking? Sig Documenting Provider Last Dose Status cyclobenzaprine (Flexeril) 5 MG tablet [id number] Take 2 tablets (10 mg) by mouth at bedtime DELORIS Steele 09/01/24 1844 gabapentin (Neurontin) 100 MG capsule [id number] Take 100 mg by mouth in the morning and 100 mg before bedtime. Historical ProviderMD Active latanoprost (Xalatan) 0.005 % ophthalmic solution [id number] Administer 1 drop into both eyes at bedtime DELORIS Steele Active meclizine (Antivert) 25 MG tablet [id number] Take 25 mg by mouth 3 (three) times a day as needed for dizziness DELORIS Steele Active omeprazole (PriLOSEC) [address] capsule [id number] Take 40 mg by mouth in the morning. Take before meals. Do not crush or chew.. Historical ProviderMD Active rosuvastatin (Crestor) 10 MG tablet [id number] Take 10 mg by mouth Daily Historical ProviderMD Active HPI Dizziness -on Meclizine PRN -has not needed to take -denies any recent episodes . Confusion/Memory changes -confusion is still about the same, denies worsening -reports word finding difficulty at times -continues to have trouble with focusing and concentrating -forgets recent conversations and events -denies any trouble with ADL's -lives with his sister who does most of the daily chores -sleeping good at night -wears CPAP nightly -occasionally has trouble falling asleep -admits vivid dreams -denies any hallucinations Back pain/ Lumbosacral radiculopathy -on Flexeril -continues to follow with pain management -has injection scheduled in a week -pain today is 7/10 -constant numbness and tingling in right hand -reports some twitching of hands -admits weakness in hand and trouble with client services specialist -finds himself dropping things -balance is good -denies any recent falls NECK PAIN/PARESTHESIAS -reports some neck pain -states its his arthritis -weather changes are the trigger -denies any radiating ROS Review of Systems Constitutional: Negative. Respiratory: Negative. Cardiovascular: Negative. Gastrointestinal: Negative. Musculoskeletal: Positive for back pain and neck pain. Neurological: Positive for dizziness, weakness and numbness. Psychiatric/Behavioral: Positive for decreased concentration. Objective Visit Vitals BP 120/80 Pulse 59 Resp 16 Ht 5' 8 Wt 214 lb SpO2 99% BMI 32.54 kg/m Smoking Status Every Day BSA 2.16 m Neurological Exam Mental Status Awake, alert and oriented to person, place and time. Memory: MOCA 22/30. Speech is normal. Language is fluent with no aphasia. Attention and concentration are normal. Fund of knowledge is appropriate for level of education. Cranial Nerves CN II: Visual acuity is normal. Visual villeda full to confrontation. CN III, IV, : Extraocular movements intact bilaterally. Normal lids and orbits bilaterally. Pupils equal round and reactive to light bilaterally. CN V: Facial sensation is normal. CN VII: Full and symmetric facial movement. CN VIII: Hearing is normal. CN XI: Shoulder shrug strength is normal. Motor Normal muscle bulk throughout. Normal muscle tone. No abnormal involuntary movements. Sensory Light touch is normal in upper and lower extremities. Gait Casual gait is normal including stance, stride, and arm swing. Motor Examination RUE Strength deltoid, biceps, triceps, wrist extensors, wrist extensors, wrist flexor, client services specialist strength 5/5. LUE Strength deltoid, biceps, triceps, wrist extensors, wrist extensors, wrist flexor, client services specialist strength 5/5. RLE Strength illopsoas, quadriceps, tibialis anterior, and gastrocnemius strength 5/5. LLE Strength illopsoas, quadriceps, tibialis anterior, and gastrocnemius strength 5/5. Tone Normal tone x4 extremities. Reflexes: RUE biceps reflex 3, brachioradialis reflex 2 LUE biceps reflex 3, brachioradialis reflex 2 RLE knee reflex 3, ankle reflex 2 LLE knee reflex 3, ankle reflex 2 Cross adductors, finger flexors. Assessment and Plan Diagnoses and all orders for this visit: Balance problems Hyper reflexia Radiculopathy, cervical region Lightheadedness History of loss of balance and lightheadedness that has been occurring since May 2021. These episodes are intermittent and may last anywhere from minutes to an hour. The patient states that in between these episodes his balance is normal. He will have difficulty with position change but not consistently. MRA of the head and neck were nonacute with right moderate narrowing of carotid bulb/proximal ICA and left mild-moderate narrowing of the carotid bulb/proximal ICA. Cervical spine MRI revealed moderate to significant stenosis C3-C4, largely secondary to a moderate central disc protrusion and note of focal thin myelomalacia at that level. There is also modest central stenosis at C4-C5 largely secondary to right paracentral focal spondylosis or disc protrusion. Patient had surgery with Dr. Ascencio 10/2021. The patient had an EMG of the of the right upper extremity that revealed a moderate, remote C8 motor radiculopathy. He continues with some balance difficulty and intermittent numbness in his left hand. Lumbar back pain Lumbosacral radiculopathy Patient with paresthesia to lower extremities bilaterally ongoing for over a year and back pain, worsens with certain position changes with underlying bilateral S1 radiculopathies and lumbar degenerative disc disease. PCP started patient on gabapentin for symptom management. PT provided no benefit. He had benefit with trigger injections, although it was not lasting. He has failed multipe medications and feels he is sensitive to medications currently due to his GI issues. He is now following with pain management and has received 4 epidural injections with improvement in symptoms and recently had an ablation. Flexeril has been beneficial and he uses this as needed. GIRMA (obstructive sleep apnea) Treated with CPAP. He has improved his compliance Memory change Patient has been experiencing confusion and forgetfulness, which is due to his underlying intellectual disability/developmental delay per neuropsychology evaluation 01/20/2024. His symptoms are exacerbated when he is not compliant with CPAP. He also has mild depression and anxiety and chronic back pain that likely exacerbated his baseline struggles. 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 He does work midnights. Memory labwork 06/2022 unremarkable. During split night study, patient have GIRMA as well as mixed and central apnea. He has been started on CPAP and has improved his compliance. Compliance download 03/23/2024: revealed usage days and using greater than 4 hrs 77%. AHI 10.7, central 1.0, Obstructive 7.0 MOCA 01/28/2023: 06/19/2022: Neuropsychology evaluation 01/20/2024: Revealed findings consistent with baseline history of mild intellectual disability/developmental delay that had been exacerbated by CPAP noncompliance. No convincing evidence of neurodegenerative etiology to his presenting concerns. Mild depression and anxiety along with chronic back pain were thought to exacerbate his baseline struggles. BLE EMG 04/08/2023: revealed bilateral S1 radiculopathy, mild in degree electrically. Lumbar spine MRI 08/04/2023: revealed disc bulge at L2-L3, L3-L4, L4-5, L5-S1. At L4-5 there is central disc protrusion and bilateral facet hypertrophy, and mild to moderate lateral recess narrowing. At L5-S1 there is disc bulge and mild left paracentral disc protrusion, lateral osteophyte and disc formation with facet hypertrophy. There is mild central stenosis and mild to moderate lateral recess and moderate left sided foraminal narrowing. Brain MRI 07/08/2022: No significant chronic microvascular ischemic change or atrophic changes appreciated. Carotid US 07/2022: no significant stenosis TCD 07/2022: Right JEFFRY not visualized otherwise within normal limits Routine EEG 06/2022: normal. MRA of the neck 10/2021: revealed right moderate narrowing of carotid bulb/proximal ICA, likely due to atherosclerotic plaque and left mild-moderate narrowing of the carotid bulb/proximal ICA. MRA head 10/2021: revealed no acute findings or significant stenosis. Cervical spine MRI 08/27/2021: revealed moderate to significant stenosis C3-C4, largely secondary to a moderate central disc protrusion and note of focal thin myelomalacia at that level. There is also modest central stenosis at C4-C5 largely secondary to right paracentral focal spondylosis or disc protrusion. PLAN Continue Flexeril 10mg PO at bedtime for muscle spasms Continue meclizine 25mg 1/2-1 tab PO every day-BID PRN for vertigo Continue gabapentin per PCP Continue following with pain management Patient can follow up with this clinic in 4 months or sooner for new or worsening symptoms Consider updating BUE EMG pending course documented in this encounter [facility] 12-09-2023 History of Presen t illness Narrative Images from the original note were not included. [address] [place] [address] A [facility] [address] [facility] [id number] Patient: Rosa Eastman Date of : 1965 Encounter Date: 12/09/2023 History of Present Illness: The patient is a 58 y.o. male, an established patient, and is here for follow-up.. He has a history of lower urinary tract symptoms. He had been tried on VESIcare in 2021. He had some right lower quadrant pain shortly after starting this and stopped. At the time it did help some of his urinary symptoms but those have been steady for him and he did not resume the medication. Presents for prostate cancer screening. On exam prostate smooth without nodule. Urinary symptoms remained stable. Summary of old records: Urinalysis today: No results for input(s): EXTPOCURCO , EXTPOCURCH , EXTPOCAPP , EXTPOCURBS , EXTPOCURBIL , EXTPOCUKET , EXTPOCUSPG , EXTPOCUHGB , EXTPOCUPRO , EXTPOCUURO , EXTPOCULEU , EXTPOCUNIT , EXTPOCUWBC , EXTPOCUBLD , EXTPOCURBC , EXTPOCUCRY , EXTPOCUBAC , EXTPOCUTREP , EXTPOCUPH in the last 72 hours. Last BUN and creatinine: No results found for: BUN No results found for: CREATININE Last PSA: Lab Results Component Value Date PSA 0.61 10/17/2022 No results found for: PROSTATICSP Additional Lab/Culture results: None Imaging Reviewed during this Office Visit: None (Results were independently reviewed by physician and radiology report verified) Past Medical, Family, and Social History Update: The following portions of the patient's history were reviewed and updated as appropriate: allergies, current medications, past family history, past medical history, past social history, past surgical history and problem list. Past Medical History: Diagnosis Date High cholesterol Past Surgical History: Procedure Laterality Date CARPAL TUNNEL RELEASE Right COLONOSCOPY N/A 05/03/2021 Performed by Carlos Olmos MD at [facility] SURGERY TONSILLECTOMY ULNAR NERVE REPAIR UPPER GASTROINTESTINAL ENDOSCOPY 10/15/2023 Family History Problem Relation Age of Onset Cancer Sister Heart disease Mother Hyperlipidemia Mother Heart disease Father Diabetes Father Prostate cancer Maternal Grandfather Current Outpatient Medications Medication Sig Dispense Refill cyclobenzaprine (FLEXERIL) 5 mg tablet Take 1 tablet (5 mg total) by mouth once daily at bedtime. latanoprost (XALATAN) 0.005 % ophthalmic solution place 1 drop into both eyes every evening as directed rosuvastatin (CRESTOR) 5 mg tablet Take 1 tablet (5 mg total) by mouth in the morning. naproxen (NAPROSYN) 500 mg tablet take 1 tablet by mouth twice a day if needed for pain for 14 days (Patient not taking: No sig reported) 0 No current facility-administered medications for this visit. (All medications reviewed and updated by provider since last office visit or hospitalization) Allergies: Bee venom protein (honey bee) and Penicillins Tobacco History: Social History Tobacco Use Smoking Status Every Day Smokeless Tobacco Never (If patient a smoker, smoking cessation counseling offered) Social History: Social History Substance and Sexual Activity Alcohol Use Yes Comment: OCCASIONAL Review of Systems: General: Negative for chills and fever. Cardiovascular: Negative for chest pain and shortness of breath. Gastrointestinal: Negative for constipation, diarrhea, nausea, and vomitting. Physical Exam: BP 130/78 Pulse 79 Ht 172.7 cm (5' 8 ) Wt 92.5 kg (204 lb) BMI 31.02 kg/m Assessment and Plan: Rosa was seen today for follow-up. Diagnoses and all orders for this visit: Benign localized prostatic hyperplasia with lower urinary tract symptoms (LUTS) - Prostatic specific antigen, diagnostic; Future - Prostatic specific antigen, diagnostic; Future Problem List Genitourinary Benign localized prostatic hyperplasia with lower urinary tract symptoms (LUTS) - Primary Overview 09/10/22: Progressive lower urinary tract symptoms mostly with overactive bladder. Plan to check PSA, trial VESIcare 5 mg, recheck PVR 10/23/22: PSA 0.61. Discontinued VESIcare after he developed some RLQ pain. Not interested in trying an alternative. Wants to follow with us for prostate cancer screening 12/09/23: Urinary symptoms stable. PSA recommended and ordered today. Recheck 1 year Relevant Orders Prostatic specific antigen, diagnostic Prostatic specific antigen, diagnostic Follow-up: Hilario Small MD This note was created with the assistance of a speech recognition program. While intending to generate a timely document that accurately reflects the content of the visit, no guarantee can be provided that every grammatical or spelling mistake has been or will be identified or corrected. Thank you for your understanding. 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 I will see him on an as-needed basis I think he has had a good outcome overall. [facility] Other 05-04-2022 Evaluation note* Encounter Date Diagnosis [...] Cervical spondylosis with myelopathy (ICD-10 - M47.12) [facility] Other 03-29-2022 NoteEducation Materials Neurology Paresthesia Paresthesia [...] or sweet foods. General instructions ? Take jxpi-vok-yovyroq and prescription medicines only as told by [...] provider. Document Revised: 11/22/2019 Document Reviewed: 11/05/2018 [employer] Patient Education ? 2020 [employer]. Orthopedics Cubital Tunnel Syndrome Cubital tunnel syndrome [...] ? Playing contact sports, (more content not included)...[facility] 01-14-2022 Evaluation note* Encounter Date Diagnosis [...] will see him on an as-needed basis. [facility] Other 11-10-2021 Evaluation note* Encounter Date Diagnosis [...] They understand and would like to proceed [facility] Other 09-27-2021 Note [id number]05-23-2021 NoteEducation Materials Orthopedics Wrist Sprain, Adult [...] health care provider. General instructions ? Take ylgq-kve-ygbbaru and prescription medicines only as told by [...] provider. Document Revised: 10/09/2018 Document Reviewed: 05/15/2017 [employer] Patient Education ? 2019 [employer] Wrist and Forearm Exercises Ask your health care provider which exercises are safe for you. Do exercises exactly as told by your health care provider and adjust them as directed. It is normal to feel mild stretching, pulling, tightness, or discomfort as you do these exercises. Stop right away if you feel sudden pain or your (more content not included)...[facility] noteNo InformationNortGeisinger [facility] WeVideo.It Other evaluation noteNo assessment information [facility] Work Phone: Evaluation note* Diagnosis Balance problems- Primary Abnormality of gait Hyper reflexia Abnormal reflex Lightheadedness Dizziness and giddiness Lumbar back pain Lumbago GIRMA (obstructive sleep apnea) Obstructive sleep apnea (adult) (pediatric) Memory change Memory loss documented in this encounter [facility] Healthcare[facility]* Diagnosis Benign localized prostatic hyperplasia with lower urinary tract symptoms (LUTS)- Primary Benign localized prostatic hyperplasia with lower urinary tract symptoms (LUTS)- Primary documented in this encounter [facility] SystemEvaluation [facility]* Diagnosis Benign localized prostatic hyperplasia with lower urinary tract symptoms (LUTS)- Primary documented in this encounter [facility] SystemEvaluation note* Diagnosis Radiculopathy, cervical region- Primary Brachial neuritis or radiculitis nos Memory change Memory loss GIRMA (obstructive sleep apnea) Obstructive sleep apnea (adult) (pediatric) Balance problems Abnormality of gait [facility] - Reported* Type Description Date Surgical History (R) carpal tunnel release Surgical History (R) Ulnar nerve release Surgical History tonsillectomy Hospitalization History See Above [facility] Other Hospital Discharge instructions Additional Instructions Use [...] Any unusual redness or drainage contact the [facility] Work Phone: InstructionsNot on filedocumented in this encounter [facility] SystemInstructionsNot on filedocumented in this encounter [facility] [employer] SystemInstructions* Attachments The following attachments cannot be sent through Care Everywhere. * Benign prostatic hyperplasia (enlarged prostate) (Vietnamese) documented [facility] Summary Purpose Family History Relationship Condition Age at Onset Recorded Date/T [...] brother Borderline diabetes mellitus Unknown Advance Directives Advance Directive Response Recorded Date/ Time Advance Directives No September 11:09am Advance Directive Response Recorded Date/ Time Advance Directives No September 10:09am Reason for Referral Reason RUE EMG/NCV-to be co mpleted by Dr Singer, as patient had prev with Dr Singer in past Thank you Diagnosis 1 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) Referral Organization [facility] urosurgery Referring Provider First Name Harvey Referring Provider Last Name Yanet Referring Provider Specialty Neurosurger y Referred Organization [facility] Referred Provider Mani Singer Referred Address [address] [place] [id number] Referred Provider Specialty Neurology Referral Priority Routine [...] section and content) DATE CREATED AUTHOR 02/16/2022 [facility] DATE CREATED AUTHOR AUTHOR'S ORGANIZ ATION 01/23/2023 [facility] DATE CREATED AUTHOR AUTHOR'S ORGANIZ ATION 03/08/2023 [facility] DATE CREATED AUTHOR AUTHOR'S ORGANIZ ATION 10/18/2023 [facility] DATE CREATED AUTHOR AUTHOR'S ORGANIZ ATION 09/18/2024 [facility] DATE CREATED AUTHOR AUTHOR'S ORGANIZ ATION 12/30/2024 [facility] EPIC REASON FOR VISIT (unrecogniz ed section and content) Reason Comments Dizziness Neck Pain Back Pain Reason Comments Follow-up Reason Comments Follow-up Care Teams (unrecognized sec tion and content) Team Status: Inactive Member Role Status Dates Candida Alexander PA-C Attending Provider Active Britt Goodman DO Primary Care Provider Active Team Status: Inactive Member Role Status Dates NON STAFF Primary Care Provider Active Candida Alexander PA-C Attending Provider Active Team Status: Active Member Role Status Dates Britt Rex , Primary Care Provider Active Team Status: Inactive Member Role Status Dates Britt Goodman , Primary Care Provider Active Josué Evangelista MD Attending Provider Active Playground Equipment Erector Relationship Specialty Start Date End Date Britt Goodman DO [address] [place] [address] PCP - General Family Medicine 11/10/23 Mani Singer MD [address] [place] [address] Referring Physician Neurology 11/10/23 Playground Equipment Erector Relationship Specialty Start Date End Date Britt Goodman DO [address] [place] [address] PCP - General Family Medicine 11/10/23 Mani Singer MD [address] [place], [place] [id number] Referring Physician Neurology 11/10/23 Playground Equipment Erector Relationship Specialty Start Date End Date [facility] [address] [place] PCP - General Family Medicine 05/03/21 Playground Equipment Erector Relationship Specialty Start Date End [facility] [address] [place] PCP - General Family Medicine 05/03/21 Playground Equipment Erector Relationship Specialty Start Date End Date Services, [facility] [address] [place] PCP - General Family Medicine 05/03/21 Playground Equipment Erector Relationship Specialty Start Date End Date Britt Goodman DO [address] [place] [address] PCP - General Family Medicine 11/10/23 Mani Singer MD [address] [place] [address] Referring Physician Neurology 11/10/23 Playground Equipment Erector Relationship Specialty Start Date End Date CorieBritt wall DO [address] [place] [address] PCP - General Family Medicine 11/10/23 Mani Singer MD [address] [place] [address] Referring Physician Neurology 11/10/23 Goals (unrecognized section and content) Goals may [...] BE BASED ON THE PRIMARY CLINICAL RECORDS. [employer] provides no warranty or guarantee of the accuracy or completeness of information in this document.
--- NOTE | 2025-01-05 13:38 | P.CN_ITS ---
Consult Note: HPI Data of Consult Patient: known to practice within the last 3 years Requesting Physician: Wilma Bhardwaj NP Primary Care Provider: Britt Goodman Consult Narrative Reason for consult: right low back and leg pain Narrative: 59yom who presents for assessment. notes worsening pain in low back, right buttock, right leg. imaging consistent with stenosis at multiple levels of lumbar spine, including l4-5, l5-s1. has continued in a series of provider directed home exercises >6 weeks, without lasting benefit. continues using fl exeril, gabapentin, otc tylenol arthritis. cannot take NSAIDs due to GERD. denies adverse med side effects. recent right L4/5 L5/S1 TFESI and right SIJ injection provided >50% improvement for 3 months but have since become less effective, pt would like to discuss repeating. cc:: CC: Wilma Bhardwaj NP Review of Systems ROS Status of ROS 10 or more systems reviewed and unremark able except as noted in history and below Musculoskeletal Reports: back pain and joint pain PFSH PFS Medical History (Updated 05/20/24 @ 11:19 by Wilma Bhardwaj NP) Glaucoma ?H40.9 - Unspecified glaucoma (ICD-10) Obesity ?E66.9 - Obesity, unspecified (ICD-10) Smoker ?F17.200 - Nicotine dependence, unspecified, uncomplicated (ICD-10) Low back pain ?M54.50 - Low back pain, unspecified (ICD-10) Neck pain ?M54.2 - Cervicalgia (ICD-10) Osteoarthritis ?M19.90 - Unspecified osteoarthritis, unspecified site (ICD-10) Bipolar depression ?F31.9 - Bipolar disorder, unspecified (ICD-10) Carpal tunnel syndrome ?G56.00 - Carpal tunnel syndrome, unspecified upper limb (ICD-10) Chronic GERD ?K21.9 - Gastro-esophageal reflux disease without esophagitis (ICD-10) Acid reflux ?K21.9 - Gastro-esophageal reflux disease without esophagitis (ICD-10) Sleep apnea ?G47.30 - Sleep apnea, unspecified (ICD-10) High cholesterol ?E78.00 - Pure hypercholesterolemia, unspecified (ICD-10) Surgical History H/O neck surgery ?Z98.890 - Other specified postprocedural states (ICD-10) H/O elbow surgery ?Z98.890 - Other specified postprocedural states (ICD-10) H/O carpal tunnel repair ?Z98.890 - Other specified postprocedural states (ICD-10) Hx of tonsillectomy ?Z90.89 - Acquired absence of other organs (ICD-10) H/O eye surgery ?Z98.890 - Other specified postprocedural states (ICD-10) Meds Home Medications and Allergies Home Medications ?Medication ?Instructions ?Recorded ?Confirmed ?Type epinephrine 0.3 mg/0.3 mL 0.3 mg IM DAILY PRN anaphylaxis 08/30/23 09/13/24 History injection, auto-injector latanoprost 0.005 % eye drops 1 drp ophthalmic (eye) .QHS 08/30/23 09/13/24 History omeprazole 40 mg capsule,delayed 40 mg PO QAM 08/30/23 09/13/24 History release rosuvastatin 5 mg tablet 5 mg PO DAILY 08/30/23 09/13/24 History cyclobenzaprine 5 mg tablet 5 mg PO DAILY 12/08/23 09/13/24 History gabapentin 100 mg capsule 100 mg PO DAILY 12/08/23 09/13/24 History famotidine 20 mg tablet mg 04/19/24 History Allergies Allergy/AdvReac Type Severity Reaction Status Date / Time bee venom protein (honey bee) Allergy Severe UNKNOWN Verified 09/13/24 10:49 Penicillins Allergy Severe LOSS OF Verified 09/13/24 10:49 CONCIOUSNESS Exam Constitutional Documenting provider has reviewed patient's vital signs: yes Common normals: no apparent distress, oriented x3, healthy appearing, alert and well nourished General appearance: cooperative [facility] Common normals: normocephalic, hearing grossly normal bilaterally and moist oral mucous membranes Head and scalp: normocephalic Eye Common normals: PERRL Pupil: PERRL Neck & C-Spine Common normals: full ROM General: normal visual inspection Chest Common normals: inspection of chest normal Respiratory Common normals: normal respiratory effort, no retractions and no use of accessory muscles Back & Pelvis Lumbar spine/lower back: ROM limited, pain with ROM and straight leg raise positive right Sacroiliac joints: SI joint(s) abnormal Other: right SIJ positive lakeisha(patricks), gaenslens, thigh thrust, compression test strength 5/5 in BLE altered sensation right L4,5,S1 Neuro Common normals: oriented x3, CN's II-XII intact bilaterally, moves all extremities, no focal motor deficits, no sensory deficits noted and deep tendon reflexes 2+ bilaterally Sensorium/orientation: alert Motor exam: strength 5/5 throughout and no movement abnormalities noted Psych Common normals: mental status grossly normal, thought process normal, cooperative, affect normal, speech normal and activity/motor behavior normal Speech: normal speech Thought process: normal thought process Results Additional Findings Additional findings: If on a controlled substance or opioids, I have checked an [place] report on this patient and there are no aberrancies noted in the prescribing history.??If on a controlled substance or opioid a drug screen was completed and reviewed within the last year, and if there has not been a drug screen completed we ordered one today to monitor higher risk, state monitored pain medication use. As part of providing excellent, safe, comprehensive care, the following was completed at our patient's visit: 1. A medication reconciliation and review to ensure accurate knowledge of current/active medications, including asking our patients to inform us about any flhj-pwb-fobseub medications or herbal remedies/nutritional supplements/alternative remedies. 2. A review to specifically ensure our patients have had annual screening for screening for depression, screening for tobacco use, and screening for unhealthy alcohol use. For concerning screenings had a discussion with the patient, provided patient education, and recommended follow-up with primary care provider when appropriate. If patient noted with a risk of falling, they received education on strength, gait, and balance training to prevent future risk of falling. Portions of this note may have been carried over from the previous visit and updated as appropriate. Please note this office utilizes paper charting in addition to the electronic medical record. A list of current medications, vitals, and PMH is available there as the clinical staff outside of myself do not have access to [employer] charting during the clinic day operations. As part of providing quality comprehensive care the current medications, vitals, and PMH were reviewed in the paper chart. Assessment and Plan Assessment and Plan (1) Lumbar stenosis with neurogenic claudication: Assessment and Plan: The patient has had over 3 months of moderate to severe low back and RLE pain with functional impairment and inadequate response to conservative care including NSAIDS (unless there are contraindication such as concurrent blood thinners), multiple oral or topical pain medications, and home exercise program/physical therapy.? Patient has completed >6 weeks of guided home exercise program and/or formal physical therapy program without relief of their symptoms.? I have reviewed the imaging of the lumbar spine and no red flags were identified.? The Oswestry Disability Index was completed, and the patient scored a 60%.? The patient noted the following:?? moderate to severe pain, pain impacting ADLs, pain impacting ability to sit, stand, walk, sleep, and travel (2) Sacroiliitis: (3) Lumbar spondylosis: Plan repeat right L4-5 L5-S1 TFESI under fluoroscopy, risks vs benefits reviewed consider repeat right SIJ injection if symptoms persist continue current medications continue HEP as tolerated f/u 2 weeks after TFESI
== END 2025-01-05 13:08 | disposition home or self-care (01) ==
LOC: PM 13:08
PROVIDERS: PCP Family Medicine; Visit Provider Nurse Practitioner
DX: M48.062 Spinal stenosis, lumbar region with neurogenic claudication (principal); M46.1 Sacroiliitis, not elsewhere classified; M47.816 Spondylosis without myelopathy or radiculopathy, lumbar region
CPT/HCPCS: G0463

== ENCOUNTER 2025-01-31 10:35 | Day surgery (SDC) | payer MEDICAID, SELFPAY ==
--- OUTSIDE RECORDS SUMMARY | 2025-01-31 10:59 | XMS_ITS | CCD ---
Author Organization 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 Role Phone Harvey Holt Unavailable NON STAFF Primary Care Provider UnavailDAPHNEY Sotelo Attending Provider Rummassiellayamila, DO Britt Primary Care Provider Rumcoco, DO Britt Primary Care Provider MD Josué Evangelista Attending Provider [phone] Rex, DO Britt Primary Care Provider MD Josué Evangelista Attending Provider [phone] Candida Sidhu Admitting Unavailable Candida Sidhu Attending [...] Britt Primary Care Unavailable Josué Evangelista Unavailable [facility] Primary Care Unava ilable MITCHELL TRAYLOR Admitting Unavailable MERCEDES ENRIQUEZ Consulting Unavailable MITCHELL TRAYLOR Attending Unavailable MANI HARGROVE Consulting Unavailable MITCHELL TRAYLOR Consulting Unavailable MISC, DR GARCIAS Attending Unavailable MISC, DR GARCIAS Consulting Unavailable [facility] Primary Care Unava ilable RADHA, DR GARCIAS Admitting Unavailable RUMSCHLAG, BRITT Primary Care Unavailable YVONNE CAMARENA Referring Unavailable YVONNE CAMARENA Referring Unavailable [facility] Unavailable CANDIS RENTERIA Admitting Unavailable CANDIS RENTERIA Attending Unavailable [facility] Primary [facility] Provider Mani Carpenter MD Unavailable [phone] Giedraitis MD, Andrius Vytautas Attending Unavailable Giedraitis MD, Andrius Vytautas Attending Unavailable Giedraitis MD, Andrius Vytautas Attending Unavailable Giedraitis MD, Andrius Vytautas Attending Unavailable Giedraitis MD, Andrius Vytautas Attending Unavailable Giedraitis MD, Andrius Vytautas Attending Unavailable Giedraitis MD, Andrius Vytautas Attending Unavailable Giedraitis , Andrius Vytautas Attending Unavailable Giedraitis , Andrius Vytautas Attending Unavailable [facility] Care Provider CHARMAINE CASTRO Attending Unavailable MANI CARPENTER Attending Unavailable CANDIDA SIDHU Attending Unavailable CANDIDA SIDHU Attending Unavailable Allergies Allergy Classification Reported Allergen(s) Allergy Type Date of Onset Reaction(s) Facility (7 sources) penicillAMINE Drug Allergy Unknown [facility] [employer] Other (7 sources) Bee Sting Drug allergy Unknown [facility] [employer] Other (14 sources) Penicillins; Translations: [Penicillins] Allergy to substance 05-07-20 17 Unknown Reaction [facility] (5 sources) venom-honey bee; Translations: [venom-honey bee] Allergy to substance 10-02-20 21 Swelling [facility] (1 source) bee venom Drug allergy (disorder) [facility] (1 source) Penicillin Drug Allergy [facility] (3 sources) Bee Venom Protein (Honey [...] oral capsule (1 source) Cephalosporin Antibacterial Start: 023 take 500 mg by mouth three times daily Cephalexin Active 500 MG PO Three times daily January 22, 2023 12:00am cyclobenzaprine hydrochloride 5 mg oral tablet (6 sources) Muscle Relaxant Start: 025 take 2 tablets by mouth at bedtime [...] tablet (5 sources) Opioid Agonist Start: 01-23-20 23 take 5-10 mg by mouth every six [...] post void residualon 12-14-2024 [facility] Prostate specific Ag [Mass/V ol]on 12-09-2023 [facility] Prostatic specific antigen, diagnosticon 12-09-2023 Prostate specific Ag [Mass/Vol] 1.02 ng/mL 0.00 - 4.00 ng/mL [facility] Comment on above: The method used for this test is Frontstart DXI chemiluminescent immunoassay. Values obtained by different assay methods cannot be used interchangeably. H. pylori Antigenon 10-16-20 H. pylori Antigen Specimen Description .FECES Direct Exam NEGATIVE Report Status FINAL 10/16/2023 Normal [facility] Comment on above: Performed By: #### F HPY #### [facility] [employer] [address] [place] [address] Turbine Attendant: Guy Ramey MD [facility] [address] [place] [address] Turbine Attendant: Justus Darby MD Surgical Pathology Reporton 10-15-2023 Surgical Pathology Report (NOTE) Path Number: [id number] -- Diagnosis -- A. GE junction, endoscopic [...] for each. Microscopic examination performed. Processing Lab: [address] [id number] Interpretation Performed at [address] [id number] SURGICAL PATHOLOGY CONSULTATION Patient Name: ROSA EASTMAN [facility] Rec: [id number] [facility] ANATOMIC PATHOLOGY [address] [place] [address]. [place], [place] [id number] Normal [facility] CBC with Diffon 10-14-2023 Abs. Basophil 0.17 k/uL Normal 0.00-0.20 [facility] Comment on above: Performed By: #### C DP #### [facility] [address] [place] [address] [place] [address] Turbine Attendant: Justus Darby MD Abs.Imm.Granulocyte 0.04 k/uL Normal 0.00-0.30 [facility] Comment on above: Performed By: #### C DP #### [facility] [address] [place] [id number] Turbine Attendant: Justus Darby MD Abs.Neutrophil (Seg) 5.08 k/uL Normal 1.50-8.10 [facility] Comment on above: Performed By: #### C DP #### [facility] [address] [place] [address] Turbine Attendant: Justus Darby MD Basophils/100 WBC (Bld) 2 % Normal 0-2 [facility] Comment on above: Performed By: #### C DP #### [address] [place], [facility] Turbine Attendant: Justus Darby MD Eosinophils (Bld) [#/Vol] 0.43 10*3/uL Normal 0.00-0.44 [facility] Comment on above: Performed By: #### C DP #### [address] [place], [facility] Turbine Attendant: Justus Darby MD Eosinophils/100 WBC (Bld) 4 % Normal 1-4 [facility] Comment on above: Performed By: #### C DP #### [address] [place], [facility] Turbine Attendant: Justus Darby MD Erythrocyte distribution width (RBC) [Ratio] 12.3 % Normal 11.8-14.4 [facility] Comment on above: Performed By: #### C DP #### [address] [place], [facility] Turbine Attendant: Justus Darby MD Hematocrit (Bld) [Volume fraction] 44.4 % Normal 40.7-50.3 [facility] Comment on above: Performed By: #### C DP #### [address] [place] [address] Turbine Attendant: Justus Darby MD Hemoglobin (Bld) [Mass/Vol] 14.6 g/dL Normal 13.0-17.0 [facility] Comment on above: Performed By: #### C DP #### [facility] [address] [place], [place] [id number] Turbine Attendant: Justus Darby MD Immature granulocytes/100 WBC (Bld) 0 % Normal 0 [facility] Comment on above: Performed By: #### C DP #### [facility] [address] [place] [facility] Turbine Attendant: Justus Darby MD Lymphocytes (Bld) [#/Vol] 3.86 10*3/uL High 1.10-3.70 [facility] Comment on above: Performed By: #### C DP #### [address] [place] [facility] Turbine Attendant: Justus Darby MD Lymphocytes/100 WBC (Bld) 36 % Normal 24-43 [facility] Comment on above: Performed By: #### C DP #### [address] [place], [facility] Turbine Attendant: Jusuts Darby MD MCH (RBC) [Entitic mass] 30.9 pg Normal 25.2-33.5 [facility] Comment on above: Performed By: #### C DP #### [address] [place] [id number] Turbine Attendant: Justus Darby MD MCHC (RBC) [Mass/Vol] 32.9 g/dL Normal 28.4-34.8 [facility] Comment on above: Performed By: #### C DP #### [address] [place] [id number] Turbine Attendant: Justus Darby MD MCV (RBC) [Entitic vol] 93.9 fL Normal 82.6-102.9 [facility] Comment on above: Performed By: #### C DP #### [address] [place] [address] Turbine Attendant: Justus Darby MD Monocytes (Bld) [#/Vol] 1.05 10*3/uL Normal 0.10-1.20 [facility] Comment on above: Performed By: #### C DP #### [facility] [address] [place], [place] [id number] Turbine Attendant: Justus Darby MD Monocytes/100 WBC (Bld) 10 % Normal 3-12 [facility] Comment on above: Performed By: #### C DP #### [facility] [address] [place], [place] [id number] Turbine Attendant: Justus Darby MD Neutrophil (Seg) 48 % Normal 36-65 [facility] Comment on above: Performed By: #### C DP #### [facility] [address] [place], [place] [id number] Turbine Attendant: Justus Darby MD NRBC Automated 0.0 per 100 WBC Normal 0.0 [facility] Comment on above: Performed By: #### C DP #### [facility] [address] [place], [place] [id number] Turbine Attendant: Justus Darby MD Platelet mean volume (Bld) [Entitic vol] 9.6 fL Normal 8.1-13.5 [facility] Comment on above: Performed By: #### C DP #### [facility] [address] [place], [place] [id number] Turbine Attendant: Justus Darby MD Platelets (Bld) [#/Vol] 297 10*3/uL Normal 138-453 [facility] Comment on above: Performed By: #### C DP #### [facility] [address] [place], [place] [id number] Turbine Attendant: Justus Darby MD RBC (Bld) [#/Vol] 4.73 10*6/uL Normal 4.21-5.77 [facility] Comment on above: Performed By: #### C DP #### [facility] [address] [place], [place] [address] Turbine Attendant: Justus Darby MD WBC (Bld) [#/Vol] 10.6 10*3/uL Normal 3.5-11.3 [facility] Comment on above: Performed By: #### C DP #### [facility] [address] [place], [place] [id number] Turbine Attendant: Justus Darby MD Basic Metabolic Panelon 03-0 Anion gap [Moles/Vol] 9.8 mmol/L Normal 6.0-15.0 [facility] Comment on above: Performed By: #### C BC, BMP #### [address] Calcium [Mass/Vol] 9.1 mg/dL Normal 8.2-10.2 [facility] Comment on above: Result Comment: PERF ORMED BY: [place] [address] PATHOLOGIST COMMITTEE MEMBER GENEVIEVE CANNON M.D. Performed By: #### C BC, BMP #### [address] Chloride [Moles/Vol] 104 mmol/L Normal 95-114 [facility] Comment on above: Performed By: #### C BC, BMP #### [place] [id number] [facility] CO2 [Moles/Vol] 25.9 mmol/L Normal 22.0-30.0 [facility] Comment on above: Performed By: #### C BC, BMP #### [address] Creatinine [Mass/Vol] 0.98 mg/dL Normal 0.64-1.27 [facility] Comment on above: Performed By: #### C BC, BMP #### [facility] [address] [place] [id number] [place] Estimated GFR ( Camila > 60 Normal [facility] Comment on above: Result Comment: GFR estimated reference range: According to KDOQI guidelines, <60 ml/min/1.73m2 is sufficient to diagnose a patient with chronic kidney disease. Performed By: #### C BC, BMP #### [address] Estimated GFR (Non- Am > 60 Normal [facility] Comment on above: Performed By: #### C BC, BMP #### [address] Glucose [Mass/Vol] 82 mg/dL Normal 70-100 [facility] Comment on above: Result Comment: [place] Glucose Reference Range is dependent on time and content of last meal. Glucose of more than 200 mg/dL in a nonstressed, ambulatory subject supports the diagnosis of Diabetes Mellitus. ADA recommended reference range Performed By: #### C BC, BMP #### [address] Potassium [Moles/Vol] 3.7 mmol/L Normal 3.5-5.1 [facility] Comment on above: Performed By: #### C BC, BMP #### [address] Sodium [Moles/Vol] 136 mmol/L Normal 136-146 [facility] Comment on above: Performed By: #### C BC, BMP #### [address] Urea nitrogen [Mass/Vol] 11 mg/dL Normal 9-23 [facility] Comment on above: Performed By: #### C BC, BMP #### [place] [address] [place] Basophils Auto (Bld) [#/Vol] Ordered By: Josué Evangelista on 01-13-2023 Basophils (Bld) [#/Vol] 0.1 10*3/uL 0.0-0.2 [facility] Basophils/100 WBC Auto (Bld) Ordered By: Josué Evangelista on 01-13-2023 Basophils/100 WBC (Bld) 1.2 % . [facility] Calcium [Mass/volume] in Ser um or PlasmaOrdered By: Josué Evangelista on 01-13-2023 Calcium [Mass/Vol] 9.1 mg/dL 8.2-10.2 [facility] Carbon dioxide, total [Moles /volume] in Serum or PlasmaOrdered By: Josué Evangelista on 01-13-2023 CO2 [Moles/Vol] 25.9 mmol/L 22.0-30.0 [facility] Chloride [Moles/volume] in S lai or PlasmaOrdered By: Josué Evangelista on 01-13-2023 Chloride [Moles/Vol] 104 mmol/L 95-114 [facility] Complete Blood Count Auto Di ffon 01-13-2023 Basophils (Bld) [#/Vol] 0.1 10*3/uL Normal 0.0-0.2 [facility] Comment on above: Result Comment: PERF ORMED BY: [place] [address] PATHOLOGIST COMMITTEE MEMBER GENEVIEVE CANNON M.D. Performed By: #### C BC, BMP #### [facility] [address] Basophils/100 WBC (Bld) 1.2 % Normal . [facility] Comment on above: Performed By: #### C BC, BMP #### [facility] [address] [place] [address] [place] Eosinophils (Bld) [#/Vol] 0.5 10*3/uL High 0.0-0.45 [facility] Comment on above: Performed By: #### C BC, BMP #### [facility] [address] [place] [address] [place] Eosinophils/100 WBC (Bld) 4.7 % Normal . [facility] Comment on above: Performed By: #### C BC, BMP #### [facility] [address] Erythrocyte distribution width (RBC) [Ratio] 12.6 % Normal 12.0-14.8 [facility] Comment on above: Performed By: #### C BC, BMP #### [facility] [address] Hematocrit (Bld) [Volume fraction] 41.2 % Normal 38.8-50.0 [facility] Comment on above: Performed By: #### C BC, BMP #### [facility] [address] Hemoglobin (Bld) [Mass/Vol] 14.1 g/dL Normal 13.0-17.0 [facility] Comment on above: Performed By: #### C BC, BMP #### [facility] [address] Lymphocytes (Bld) [#/Vol] 3.4 10*3/uL Normal 1.00-4.8 [facility] Comment on above: Performed By: #### C BC, BMP #### [facility] [address] Lymphocytes/100 WBC (Bld) 33.3 % Normal . [facility] Comment on above: Performed By: #### C BC, BMP #### [facility] [address] MCH (RBC) [Entitic mass] 31.7 pg Normal 27.5-35.2 [facility] Comment on above: Performed By: #### C BC, BMP #### [facility] [address] MCV (RBC) [Entitic vol] 92.3 fL Normal 83.5-101 [facility] Comment on above: Performed By: #### C BC, BMP #### [facility] [address] Mean Corpuscular HGB Conc 34.4 g/dL Normal 32.5-35.6 [facility] Comment on above: Performed By: #### C BC, BMP #### [facility] [address] [place] [address] [place] Monocytes (Bld) [#/Vol] 1.0 10*3/uL High 0.0-0.8 [facility] Comment on above: Performed By: #### C BC, BMP #### [facility] [address] [place] [id number] [place] Monocytes/100 WBC (Bld) 10.1 % Normal . [facility] Comment on above: Performed By: #### C BC, BMP #### [facility] [address] [place] [address] [place] Neutrophils (Bld) [#/Vol] 5.2 10*3/uL Normal 1.8-7.7 [facility] Comment on above: Performed By: #### C BC, BMP #### [facility] [address] Neutrophils/100 WBC (Bld) 50.7 % Normal . [facility] Comment on above: Performed By: #### C BC, BMP #### [facility] [address] NRBC% 0.1 /100{WBC} Normal 0-0.5 [facility] Comment on above: Performed By: #### C BC, BMP #### [facility] [address] [place] [address] [place] Platelet mean volume (Bld) [Entitic vol] 7.8 fL Normal 6.6-10.1 [facility] Comment on above: Performed By: #### C BC, BMP #### [facility] [address] [place] [address] [place] Platelets (Bld) [#/Vol] 268 10*3/uL Normal 150-450 [facility] Comment on above: Performed By: #### C BC, BMP #### [facility] [address] [place] [address] [place] RBC (Bld) [#/Vol] 4.46 10*6/uL Normal 3.90-5.60 [facility] Comment on above: Performed By: #### C BC, BMP #### [facility] [address] [place] [address] [place] WBC (Bld) [#/Vol] 10.3 10*3/uL Normal 4.1-10.5 [facility] Comment on above: Performed By: #### C BC, BMP #### [address] Creatinine and Glomerular fi ltration rate.predicted panel (S/P/Bld)Ordered By: Josué Evangelista on 01-13-2023 Creatinine [Mass/Vol] 0.98 mg/dL 0.64-1.27 [facility] ECG 12 lead ECGon 01-13-2023 ECG 12 lead ECG [facility] [place] [address] [place] [address] Electrocardiograph Report Signed Patient: Rosa Eastman MR#: [id number] : 1965 Acct:[id number] Age/Sex: 57 / M ADM Date: 01/13/23 Loc: Room: Type: [facility] Attending Dr: Josué Evangelista MD Ordering [...] MD 0 01/14/23 1534 Normal [facility] Eosinophils Auto (Bld) [#/Vo l]Ordered By: Josué Evangelista on 01-13-2023 Eosinophils (Bld) [#/Vol] 0.5 10*3/uL 0.0-0.45 [facility] Eosinophils/100 WBC Auto (Bl d)Ordered By: Josué Evangelista on 01-13-2023 Eosinophils/100 WBC (Bld) 4.7 % . [facility] Erythrocyte distribution wid th Auto (RBC) [Ratio]Ordered By: Josué Evangelista on 01-13-2023 Erythrocyte distribution width (RBC) [Ratio] 12.6 % 12.0-14.8 [facility] Estimated glomerular filtrat ion rate (GFR) non- AmericanOrdered By: Josué Evangelista on 01-13-2023 GFR/1.73 sq M.predicted among non-blacks MDRD (S/P/Bld) [Vol rate/Area] > 60 mL/Min [facility] Glucose [Mass/volume] in Ser um or PlasmaOrdered By: Josué Evangelista on 01-13-2023 Glucose [Mass/Vol] 82 mg/dL 70-100 [facility] Comment on above: ADA recommended refe rence rangeRandom Glucose Reference Range is dependent on time and content of last meal. Glucose of more than 200 mg/dL in a nonstressed, ambulatory subject supports the diagnosis of Diabetes Mellitus. Hematocrit Auto (Bld) [Volum e fraction]Ordered By: Josué Evangelista on 01-13-2023 Hematocrit (Bld) [Volume fraction] 41.2 % 38.8-50.0 [facility] Hemoglobin [Mass/volume] in BloodOrdered By: Josué Evangelista on 01-13-2023 Hemoglobin (Bld) [Mass/Vol] 14.1 g/dL 13.0-17.0 [facility] Leukocytes [#/volume] correc lesly for nucleated erythrocytes in Blood by Automated counOrdered By: Josué Evangelista on 01-13-2023 WBC corrected for nucl RBC Auto (Bld) [#/Vol] 10.3 10*3/uL 4.1-10.5 [facility] Lymphocytes Auto (Bld) [#/Vo l]Ordered By: Josué Evangelista on 01-13-2023 Lymphocytes (Bld) [#/Vol] 3.4 10*3/uL 1.00-4.8 [facility] Lymphocytes/100 WBC Auto (Bl d)Ordered By: Josué Evangelista on 01-13-2023 Lymphocytes/100 WBC (Bld) 33.3 % . [facility] MCH Auto (RBC) [Entitic mass ]Ordered By: Josué Evangelista on 01-13-2023 MCH (RBC) [Entitic mass] 31.7 pg 27.5-35.2 [facility] MCHC Auto (RBC) [Mass/Vol]Or dered By: Josué Evangelista on 01-13-2023 MCHC (RBC) [Mass/Vol] 34.4 g/dL 32.5-35.6 [facility] MCV Auto (RBC) [Entitic vol] Ordered By: Josué Evangelista on 01-13-2023 MCV (RBC) [Entitic vol] 92.3 fL 83.5-101 [facility] Monocytes Auto (Bld) [#/Vol] Ordered By: Josué Evangelista on 01-13-2023 Monocytes (Bld) [#/Vol] 1.0 10*3/uL 0.0-0.8 [facility] Monocytes/100 WBC Auto (Bld) Ordered By: Josué Evagnelista on 01-13-2023 Monocytes/100 WBC (Bld) 10.1 % . [facility] Neutrophils Auto (Bld) [#/Vo l]Ordered By: Josué Evangelista on 01-13-2023 Neutrophils (Bld) [#/Vol] 5.2 10*3/uL 1.8-7.7 [facility] Neutrophils/100 WBC Auto (Bl d)Ordered By: Josué Evangelista on 01-13-2023 Neutrophils/100 WBC (Bld) 50.7 % . [facility] No Panel InformationOrdered By: Josué Evangelista on 01-13-2023 Estimated GFR () > 60 mL/Min [facility] Comment on above: GFR estimated refere nce range: According to KDOQI guidelines, <60 ml/min/1.73m2 is sufficient to diagnose a patient with chronic kidney disease. Pharmacy Creatinine Clearance (Chem N/A [facility] Nucleated erythrocytes [Pres ence] in Blood by Automated countOrdered By: Josué Evangelista on 01-13-2023 Nucleated RBC Auto Ql (Bld) 0.1 /100{WBC} 0-0.5 [facility] Platelet mean volume Auto (B ld) [Entitic vol]Ordered By: Josué Evangelista on 01-13-2023 Platelet mean volume (Bld) [Entitic vol] 7.8 fL 6.6-10.1 [facility] Platelets Auto (Bld) [#/Vol] Ordered By: Josué Evangelista on 01-13-2023 Platelets (Bld) [#/Vol] 268 10*3/uL 150-450 [facility] Potassium [Moles/volume] in Serum or PlasmaOrdered By: Josué Evangelista on 01-13-2023 Potassium [Moles/Vol] 3.7 mmol/L 3.5-5.1 [facility] RBC Auto (Bld) [#/Vol]Ordere d By: Josué Evangelista on 01-13-2023 RBC (Bld) [#/Vol] 4.46 10*6/uL 3.90-5.60 [facility] Serum or plasma anion gap de terminationOrdered By: Josué Evangelista on 01-13-2023 Anion gap [Moles/Vol] 9.8 mmol/L 6.0-15.0 [facility] Sodium [Moles/volume] in Ser um or PlasmaOrdered By: Josué Evangelista on 01-13-2023 Sodium [Moles/Vol] 136 mmol/L 136-146 [facility] Urea nitrogen [Mass/volume] in Serum or PlasmaOrdered By: Josué Evangelista on 01-13-2023 Urea nitrogen [Mass/Vol] 11 mg/dL 9-23 [facility] WBC Auto (Bld) [#/Vol]Ordere d By: Josué Evangelista on 01-13-2023 WBC (Bld) [#/Vol] 10.3 10*3/uL 4.1-10.5 [facility] XR cerv spine AP/LAT/FLX/EXT on 12-06-2022 XR cerv spine AP/LAT/FLX/EXT [facility] [place] [address] XRay Report Signed Patient: Rosa Eastman MR#: [id number] : 1965 Acct:[id number] Age/Sex: 57 / M ADM Date: 12/06/22 Loc: XD Room: Type: [facility] Attending Dr: Josué Evangelista MD Copies to: [...] M.D.12/06/2022 2:26 PM Dictation Location: [place] [address] Transcribed By: [facility] 12/06/221425 Dictated By: Erasmo Maddox DO 12/06/221421 Signed By: 12/06/22 142 [facility] CBC AUTO DIFFon 08-10-2022 BASO # 0.2 103/ul Critically high 0.0-0.[address] [facility] Comment on above: Performed By: #### C BC #### [facility] [address] [place] [address] Dr. Mars Sanders Basophils/100 WBC (Bld) 2.0 % Normal 0.2-2.0 [facility] Comment on above: Performed By: #### C BC #### [facility] [address] [place] [address] Dr. Mars Sanders EO # 0.5 103/ul Normal 0.0-0.7 [facility] Comment on above: Performed By: #### C BC #### [facility] [address] [place] [address] Dr. Mars Sanders Eosinophils/100 WBC (Bld) 5.7 % Normal 0.9-7.0 [facility] Comment on above: Performed By: #### C BC #### [facility] [address] [place] [address] Dr. Mars Sanders Erythrocyte distribution width (RBC) [Ratio] 12.4 % Normal 11.0-15.0 [facility] Comment on above: Performed By: #### C BC #### [facility] [address] [place] [address] Dr. Mars Sanders Hematocrit (Bld) [Volume fraction] 41.8 % Critically low 42.0-54.0 [facility] Comment on above: Performed By: #### C BC #### [facility] [address] [place] [address] Dr. Mars Sanders Hemoglobin (Bld) [Mass/Vol] 14.0 g/dL Normal 14.0-18.0 [facility] Comment on above: Performed By: #### C BC #### [facility] [address] [place] [address] Dr. Mars Sanders IG # 0.02 10e3/ul Normal 0.00-0.03 [facility] Comment on above: Performed By: #### C BC #### [facility] [address] [place] [address] Dr. Mars Sanders IG % 0.2 % Normal 0.0-0.5 [facility] Comment on above: Performed By: #### C BC #### [facility] [address] [place] [address] Dr. Mars Sanders LYMPH # 3.1 103/ul Normal 1.2-3.8 [facility] Comment on above: Performed By: #### C BC #### [facility] [address] [place] [address] Dr. Mars Sanders Lymphocytes/100 WBC (Bld) 36.3 % Normal 20.5-60.0 [facility] Comment on above: Performed By: #### C BC #### [facility] [address] [place] [address] Dr. Mars Sanders MANUAL DIFF REQ NO Normal [facility] Comment on above: Performed By: #### C BC #### [facility] [address] [place] [address] Dr. Mars Sanders MCH (RBC) [Entitic mass] 31.4 pg Normal 25.9-34.0 [facility] Comment on above: Performed By: #### C BC #### [facility] [address] [place] [address] Dr. Mars Sanders MCHC (RBC) [Mass/Vol] 33.5 g/dL Normal 29.9-35.2 [facility] Comment on above: Performed By: #### C BC #### [facility] [address] [place] [address] Dr. Mars Sanders MCV (RBC) [Entitic vol] 93.7 fL Normal 80.0-94.0 [facility] Comment on above: Performed By: #### C BC #### [facility] [address] [place] [address] Dr. Mars Sanders MONO # 0.8 103/ul Normal 0.3-0.8 [facility] Comment on above: Performed By: #### C BC #### [facility] [address] [place] [address] Dr. Mars Sanders Monocytes/100 WBC (Bld) 10.0 % Normal 1.7-12.0 [facility] Comment on above: Performed By: #### C BC #### [facility] [address] [place] [address] Dr. Mars Sanders NEUT # 3.9 103/ul Normal 1.4-6.5 [facility] Comment on above: Performed By: #### C BC #### [facility] [address] [place] [address] Dr. Mars Sanders Neutrophils/100 WBC (Bld) 45.8 % Normal 43.0-75.0 [facility] Comment on above: Performed By: #### C BC #### [facility] [address] [place] [address] Dr. Mars Sanders Platelet mean volume (Bld) [Entitic vol] 9.4 fL Critically low 9.5-13.5 [facility] Comment on above: Performed By: #### C BC #### [facility] [address] [address] [address] Mars Sanders PLT 251 103/ul Normal 150-450 [facility] Comment on above: Performed By: #### C BC #### [facility] [address] [address] [address] Mars Sanders RBC 4.46 106/ul Critically low 4.70-6.10 [facility] Comment on above: Performed By: #### C BC #### [facility] [address] [address] [address] Mars Sanders WBC 8.4 103/ul Normal 4.0-11.0 [facility] Comment on above: Performed By: #### C BC #### [facility] [address] [place] [address] Dr. Mars Sanders D-DIMERon 08-10-2022 D-DIMER 0.35 mg/L FEU Normal <=0.59 [facility] Comment on above: Performed By: #### D DIM #### [facility] [address] [place] [address] Dr. Mars Sanders D-DIMER COMMENTS SEE BELOW Normal [facility] Comment on above: Result Comment: Incr [...] hospitalization. Performed By: #### D DIM #### [facility] [address] [place] [address] Dr. Mars Sanders PROF 14(COMP METB)on 022 Albumin [Mass/Vol] 3.8 g/dL Normal 3.4-5.0 [facility] Comment on above: Performed By: #### H STROPN, CMP #### [facility] [address] [place] [address] Dr. Mars Sanders Albumin/Globulin [Mass ratio] 1.0 {ratio} Normal [facility] Comment on above: Performed By: #### H STROPN, CMP #### [facility] [address] [place] [address] Dr. Mars Sanders ALP [Catalytic activity/Vol] 127 U/L Critically high 46-116 [facility] Comment on above: Performed By: #### H STROPN, CMP #### [facility] [address] [place] [address] Dr. Mars Sanders ALT [Catalytic activity/Vol] 30 U/L Normal 16-63 [facility] Comment on above: Performed By: #### H STROPN, CMP #### [facility] [address] [place] [address] Dr. Mars Sanders Anion gap [Moles/Vol] 13.5 mmol/L Normal [facility] Comment on above: Performed By: #### H STROPN, CMP #### [facility] [address] [place] [address] Dr. Mars Sanders AST [Catalytic activity/Vol] 20 U/L Normal 15-37 [facility] Comment on above: Performed By: #### H STROPN, CMP #### [facility] [address] [place] [address] Dr. Mars Sanders Bilirubin [Mass/Vol] 0.3 mg/dL Normal 0.2-1.0 [facility] Comment on above: Performed By: #### H STROPN, CMP #### [facility] [address] [place] [address] Dr. Mars Sanders Calcium [Mass/Vol] 8.7 mg/dL Normal 8.5-10.1 [facility] Comment on above: Performed By: #### H STROPN, CMP #### [facility] [address] [place] [address] Dr. Mars Sanders Chloride [Moles/Vol] 105 mmol/L Normal 98-107 [facility] Comment on above: Performed By: #### H STROPN, CMP #### [facility] [address] [place] [address] Dr. Mars Sanders CO2 [Moles/Vol] 25.4 mmol/L Normal 21.0-32.0 [facility] Comment on above: Performed By: #### H STROPN, CMP #### [facility] [address] [address] [address] Mars Sanders Creatinine [Mass/Vol] 0.98 mg/dL Normal 0.70-1.30 [facility] Comment on above: Performed By: #### H STROPN, CMP #### [facility] [address] [address] [address] Mars Sanders EGFR-AF SWAZI >60 Normal >=60 [facility] Comment on above: Performed By: #### H STROPN, CMP #### [facility] [address] [place] [address] Dr. Mars Sanders EGFR-NON AF SWAZI >60 Normal >=60 [facility] Comment on above: Performed By: #### H STROPN, CMP #### [facility] [address] [place] [address] Dr. Mars Sanders Globulin (S) [Mass/Vol] 3.9 g/dL Normal [facility] Comment on above: Performed By: #### H STROPN, CMP #### [facility] [address] [place] [address] Dr. Mars Sanders Glucose [Mass/Vol] 102 mg/dL Normal 74-106 [facility] Comment on above: Performed By: #### H STROPN, CMP #### [facility] [address] [address] [address] Mars Sanders Potassium [Moles/Vol] 3.9 mmol/L Normal 3.5-5.1 [facility] Comment on above: Performed By: #### H STROPN, CMP #### [facility] [address] [address] [address] Mars Sanders Protein [Mass/Vol] 7.7 g/dL Normal 6.4-8.2 [facility] Comment on above: Performed By: #### H STROPN, CMP #### [facility] [address] [place] [address] Dr. Mars Sanders Sodium [Moles/Vol] 140 mmol/L Normal 136-145 [facility] Comment on above: Performed By: #### H ALESSIO, CMP #### [facility] [address] [place] [address] Dr. Mars Sanders Urea nitrogen [Mass/Vol] 14.0 mg/dL Normal 7.0-18.0 [facility] Comment on above: Performed By: #### H ALESSIO, CMP #### [facility] [address] [place] [address] Dr. Mars Sanders Urea nitrogen/Creatinine [Mass ratio] 14.3 mg/mg Normal [facility] Comment on above: Performed By: #### H ALESSIO, CMP #### [facility] [address] [place] [address] Dr. Mars Sanders PROTIMEon 08-10-2022 INR Coag (PPP) [Relative time] 0.95 {INR} Normal [facility] Comment on above: Performed By: #### P T, PTT #### [facility] [address] [place] [address] Dr. Mars Sanders INR GUIDELINES SEE BELOW Normal [facility] Comment on above: Result Comment: EDU RED INR: 2.0 - 3.0 CONDITIONS NOT LISTED BELOW 2.5 - 3.5 FOR PROSTHETIC HEART VALVE REPLACEMENT 2.5 - 3.5 RECURRENT THROMBOSIS Performed By: #### P T, PTT #### [facility] [address] [place] [address] Dr. Mars Sanders PT Coag (PPP) [Time] 10.3 s Normal 9.0-11.6 [facility] Comment on above: Performed By: #### P T, PTT #### [facility] [address] [place] [address] Dr. Mars Sanders PTTon 08-10-2022 aPTT Coag (Bld) [Time] 29.9 s Normal 22.3-36.2 [facility] Comment on above: Performed By: #### P T, PTT #### [facility] [address] [place] [address] Dr. Mars Sanders TROPONIN, HIGH SENSITIVITYon 08-10-2022 HSTROP 12.3 pg/mL Normal 4.0-76.1 [facility] Comment on above: Result Comment: CUT- OFF POINTS HAVE BEEN ESTABLISHED BASED ON THE FOURTH UNIVERSAL DEFINITIONS OF MYOCARDIAL INFARCTION. THE UPPER REFERENCE LIMIT (URL) OF TROPONIN, DEFINED THE 99TH PERCENTILE OF cTnI DISTRIBUTION IN A REFERENCE POPULATION, HAS BEEN CONFIRMED THE DECISION THRESHOLD FOR [place] DIAGNOSIS. Performed By: #### H STROPN, CMP #### [facility] [address] [address] [address] Mars Sanders XR CHEST 1 Von [...] by: MANI HARGROVE Date: 2022-08-10 18:59 Normal [facility] MR head/brain wo conon 07-08 MR head/brain wo con [facility] [place] [address] [place] [address] MRI Report Signed Patient: Rosa Eastman MR#: [id number] : 1965 Acct:[id number] Age/Sex: 57 / M ADM Date: 07/08/22 Loc: [facility] Room: Type: [facility] Attending Dr: Candida Alexander PA-C Copies to: [...] Rob Funez M.D.07/08/2022 1:37 PM Dictation Location: [place] [address] Transcribed By: [facility] 07/08/22 626 Dictated By: Rob Funez II, MD 07/08/22 133 Signed By: 07/08/22 1335 Normal [facility] Folate [Mass/volume] in Seru m or PlasmaOrdered By: Candida Alexander on 06-21-2022 Folate [Mass/Vol] 7.4 ng/mL >5.9 [facility] Comment on above: Folate reference ran ge: >5.9 ng/ml The WHO technical consultation on folate and vitamin b12 deficiencies has determined that folate concentrations less than 4 ng/ml are considered deficient. Free T4 (Free Thyroxine)on 0 06-21-2022 Free T4 [Mass/Vol] 0.77 ng/dL Normal 0.61-1.12 [facility] Comment on above: Performed By: #### V [id number], T4F, TSH3 #### [facility] [address] #### METH #### [facility] , Laboratory - Chemistry and C hemistry - challengeOrdered By: Candida Alexander on 06-21-2022 Cobalamin (Vitamin B12) [Mass/Vol] 369 pg/mL 180-914 [facility] Methylmalonic Acidon 022 Methylmalonic Acid 241 Normal 0-378 [facility] Comment on above: Result Comment: This test was developed and its performance characteristics determined by [employer]. It has not been cleared or approved by the Food and Drug Administration. Performed at: [address] [id number] Turbine Attendant: Millicent Calderon MD, Phone: [phone] PERFORMED BY: [place] [address] PATHOLOGIST COMMITTE[employer] MEMBER GENEVIEVE CANNON M.D. Performed By: #### V [id number], T4F, TSH3 #### [facility] [address] [place] [address] #### METH #### [facility] , Serum or plasma methylmalona te measurement (moles/volume)Ordered By: Candida Alexander on 06-21-2022 Methylmalonate [Moles/Vol] 241 nmol/L 0-378 [facility] Comment on above: This test was develo ped and its performance characteristics determined by [employer]. It has not been cleared or approved by the Food and Drug Administration. Performed at: [facility] [address] [id number] Turbine Attendant: Millicent Calderon MD, Phone: [phone] TSH DL <= 0.005 mIU/L QnOrde red By: Candida Alexander on 06-21-2022 TSH Qn 2.46 m[IU]/L 0.45-5.33 [facility] Thyroid Stimulating Hormoneo n 06-21-2022 TSH Qn 2.46 m[IU]/L Normal 0.45-5.33 [facility] Comment on above: Result Comment: PERF ORMED BY: [place] [address] PATHOLOGIST [employer]BER GENEVIEVE CANNON M.D. Performed By: #### V [id number], T4F, TSH3 #### [facility] [address] [place] [address] [place] #### METH #### [facility] , Thyroxine (T4) free [Mass/vo lume] in Serum or PlasmaOrdered By: Candida Alexander on 06-21-2022 Free T4 [Mass/Vol] 0.77 ng/dL 0.61-1.12 [facility] Vit. B12/Folate Profileon Cobalamin (Vitamin B12) [Mass/Vol] 369 pg/mL Normal 180-914 [facility] Comment on above: Performed By: #### V [id number], T4F, TSH3 #### [facility] [address] #### METH #### [facility] , Folate 7.4 ng/mL Normal >5.9 [facility] Comment on above: Result Comment: Rosa M te reference range: >5.9 ng/ml The WHO technical consultation on folate and vitamin b12 deficiencies has determined that folate concentrations less than 4 ng/ml are considered deficient. Performed By: #### V [id number], T4F, TSH3 #### [facility] [address] [place] [address] [place] #### METH #### [facility] , Coding Summaryon 02-13-2022 Coding Summary HTMLBase 64 YgwblpkjXJz5wCp+PGhl YWQ+RX7EJZCgV72bmWSq wZ2OM0hFVL7UHUNUZDDA MR2LZS5bbNO4QPrqP5Vw biAv FpeauBPaIF44IPr6ZDG8 dAzzUGjnsR3voGYeL9w2 UuHtGP87xE66EYyhHRNw JmP3NnKzqpeacWRk E0ofHlMnkFHlPgf+PHRh YmxlIHdpZHRoPScxMDAl JbXrySzkEM7sMg5jFYUd LWNvbGxhcHNlOiBj a9bnTTZvDPvlUT0vzVqq C5VatWG5CBLwm7m8Oh21 dHI+UBMsXUV8jTyzELbt o902GsYdb9eoNUP4 uSUvXCupVDH0J47ao3X6 ENBjRUUjIPC1dHP1cY2i rLvpqucpB9CnbSJtKkD2 QQP9vNAgyL5pmDtd usufxP1rIvb+X57GPL6T BNYDPF0ZJxb3L5NdMeji dHI+LL63WPXgKK83zDDd yBLzg3wlqUu9QeVq DKQdBJY2eIoqMJyea7Ee LNTyN92psQBoz1X4TYDy uQxdtEPuEvOgwVB3vK0q ICshwektf0pvfiwg Lplnz9ikzm78wZ96A95t JExlPCZzSTA0QIYhVXBj vZlzma6pkE8jJm9+IDxj t3hrp9euzNm6PxDv QOHklrPhnLhwCWG4d8Ag En61Y6GdpUnyz3ZuYcg8 by02aTReg6J9dLK9HHhi FEIhrK7nKJefGfE4 KTSpLtSgqC76oYNoNGyy Cz9irKlaoYpbID5rMZCw oqzpAXEccZ8xPGOcuPKr fTocTU2lMWNdyros j170GyPoYHF5JDRayILo N7VkdE3lWfMkCZIyBMAe U0ZgxWIaGEtcB892VBwd CpJ0DHZzhpIlR1Hf PYGlvTgaNvS3q3B0Np6E q2SwdmcxIHB3IDvoOMX6 JxY9SrVgXgB2H7XzWrx0 GIZorHelUK8yW6Ob NMXciwcjzqrasXL4CKKi YXOybA84aYQjXMvpTf6u b7C6k878KFAqKYXvbB97 Sf9mhCraDJTlhRSW tP1qvphkm3afslotHrUd VAFiPDg5SYu1SUWanXwy PgNzGCC1CjE3EIJ4jBWx kC9wtQuhfcnleU2e Oyc+O01gmC1wTGN1ZIS1 igoxEMYbtlGxUJ23OR83 X5FlObcpqYJxkOS+PGRp lnEyePzwIF2nLaJu r9mpf7OrLXuzS5UeYTPi KPwrDbk8VRJoYBT0aPK1 rT6iSUGjPSqeo2B4zTD2 I3LpwxErpb0np1es PXPqHQnwP21xkWAhw3H6 ZQQwiOW6GBFcfOsyFbTv fB50Hpv+FFAicCipg9Uu Hmgzp9byb8hlrYu3 IjMwJSIgdmFsaWduPSJ0 g2IhJk76E90qUIrxQPAq SPVqBSQvLWNqzAahkc7p nO4bXx9+PGNvbCB3 zNV5nW5uJKXsFrE1ZBcg X757XkKvwXCiLuipe7pc t2dleHz6MlBiUDBmftRd xPzdRPU4d8MnFn47 S36jVKtdLZGhHWUbAKQp OWOejFpjqq3ozW1jCu3+ LU6al4mirv71bQ72gXZ+ QVVoZBA9uHmiJKia HGFayA2wNIuxKvE4GIHw LnRvbZ40kCUrGUsbHk1g eCyiiKcsMT0oBHZsteca d346ZqKeh9fyURCh kFFjJKyqHJU3N22sb4H8 LOVoPWTiEUJ3hOF3xB1i bGlnbjogbGVmdDsgdmVy zAngHEsqELduI057 IHRvcDsnPlBhdGllbnQg UqAzNPn4L7SvVwf2CVNx lXscLC2wqKVbEFmoQd7j jYjrgDuuZA3uXKOy kxxrl608WkEvh1ncSFDw eKPvPIynDKO9H61je4W1 NQKjOQXsMMC2pSC2eO8u bGlnbjogbGVmdDsg jdEcxQyvLZqeNFptW771 IHRvcDsnPkJpcnRoIERh aVZ0YY44HW80cAZrj3O4 eEB7X8JpBZPvdfmt uzltgSF1IYIeGFTjbP58 Ex4sgFgcLp1iQYGsRSI7 WOVdiKCuQ9OfsT9gOlRz DKIlEIUkN1QwlQSh ZAuuN840KCenHwW5RDSe dgQmT1DsIPBqbJptWaI4 f6Q4Wo9OA1M3JB23WX18 uKWms3Y9eHE2V0Wd VADhdjoppxtvvOF0HHTj IAFukR06El6bsAypTr1w AFGzNWP9ADQfsDTmQ1Mg zE8zLdJpDJQcRJYh D0TmcVPwHWbjW881RYfw BtJ9LCStavMcP6QyHRYb rVcrPdJ9k2B9Dg8YDYc8 HB10IG55hFDae4G0 aTK9P2VpKFDaccbiriem hQG2ZVXsHWYlsU05Or6i gLslXz8nZRMsLMZ3JSMj iPFbI4BunV1fWgLu DFDtPMNgM2QpmWLrOTpp Y010LGqePsK3IEUcboIf F3QdPPNjrApeKmT5v3T9 Uk2DQMVeHV03FOS2 oFY5JF99DK53J4JmAlak dGFibGU+PHRhYmxlIHdp ZHRoPScxMDAlJyBzdHls DY5hIl4iCOUsWELl xCnqkTGrVrXpl6trURNf XMhmCV3qvKsuN0DgcQJ3 VIBew2t8Pw92E00dG9Mj dXA+YAPhyNW4hKN7 dR8dGkSpAqP8EPlkH338 SfWelDFoNxvqy0pco3zo jCt6MnY7CDTqdgWmiFuo QPN7u4KwPs49L64t IHdpZHRoPSIxNSUiIHZh xYtadq6vdJ6cEk3+PGNv tXO0uTY1mI3cIrPkRmG1 OXtrO767FkQgtCLz Wgdkg7srm3amwSp5ZlZx UDWplgKttOkyZBO1n7Nl Lp14S7FeaMqkq8GrMlm8 kn30gDNno8E5qQA0 B5GpEHQihbmwbBXzrCef JI1nVTJrrixiWLCiaJ7m EDBjR2h6PjHzBiD7VMft I0ZeynV7WSPqaNAk LEftZYE6I52gf0W8DQWu HQIoPSX8pQH0sK4jyEis bjogbGVmdDsgdmVydGlj OSidIGapK057ARNy kRusINZmaD6uTKRbbSWp qMylEG1lHXVtxpdaTgRW F7GWL37WRMSTJ0JWQnGb XNvVDE16L0RsBqa3 NMJmgQeoLH2pwWZqUSua Tc4qvBjehUebDY7fJLPt kesvBZRftZ9fDGCwyBWm vWogPR5uBVQrsgcm t661McLrSJB9SNQttPNf O0KgfN6qSwOyWKYtJIXe J4WbmBSgVNplZ651ZWok MlV8QEScozYiH7Kk ZPNnfMkbCfM6h4I9Zm2w LM8dCr5kTVF1CO01FT23 iSMts5S8zHK1A6JwJCOi efgyxqbglPM1FKOq XNEdzE03dBZkFXuqGs6a c4V0w390DXFqQLFlxJ62 Mu1rdBzzAHIkwVXOrT2h xtldc3qhczwkWoOf IRDyQRi6BWw7DBFdsBnx EjSsHUW7McU3FMR2qGEa qB9nbPodgjmdlP8lYgu+ PFDpXLKbzhV1S2Co Jol8FDQiaKxyWG0shZBr HFwvQt2snEanaYkfMI8g SEYjjibcKWWnyM3cARDt tVGwpBnnAZ0mFORu pxjvc221HoToEKV6ADGx eGEsD0YxzF0nBuTzIRPy SEAkY5KcxTEiNDhiP193 SCguHbS8IHVpivPx Z1UtDPQpnYovEyE6s0J9 Tn8HYZfLBN90KV73dLHo b3A2wAW2G6KjWQPkrotq oqmfwPI0CTXhTTWa vP90eUJeZOomVz2fc3S6 y062XOIfPBPdlA59Oq7j uXwcYZExnGFXdL3svgka j5wtkfyzVwPzPSJu IDy1YAw7WGKdxDtjJoIw ZDN0UjN1NXE8gXWjvB9c fQdtuzetfT2sFki+T1A8 D8YeTtkdfVI+PC90 SPDvQU12pYJjxZGey9mk wEc9ZzWbRPMuKEB6gWnx KQpin6IpUZVaJ53fcMHh d1O1VFJepInsdIGh FgPfcXV0gD4sPTxildcg l2hexpcjDejrw1kfsv50 sB38A27dVFamAWLvHNLm QNIcVPSztYoffe9e rH1gSo6+XKTpdKV2yJI4 zX2pXhLiZnC3AYkcW596 TtVwzOFqZxijw2ujr6lx tEs7FkYrMPLletGn lEohWEJ1i1NzPu85R28b IHdpZHRoPSIyMCUiIHZh iRffgb6hbY2uAc3+PC9j k3drix50tP03uPU+ RCYnTUE8yObhUNhsTPUt kO4xGWjdAvL3GODnMdTm qJ70uAOaZOabYg7vuSuk sKvrAV7dUSWrewhz b766TuAxq4dsZMBcxLVz KWiqDRL3U32ms7I0PJNw JPPhSUJ5wKW2iP5veGzx bjogbGVmdDsgdmVy yNufHFmpSIweM920JXZn nQckBsIggVInV2izqrPB EO3uJpwzgEA+PHRkIHN0 cOvbEVueRVXkxR8g ZKEgY4p3DhUrAnK4SXkw W9HieuV2QAFakWOiDFKi hEDPyR5khivxw8dtetjp ErZrCRLwKMa5MSp2 RDVyeIliBzJzPCL0BxZ8 LGW2aFDkaN4uhSzwvefq zW1iFdz+RklOOjwvdGQ+ IYQfHPE2nVxaMLio OXGyzK2iDVNaG0e4UdPi QgO1ZVjiZ0ObxjP7JMQa kABsYIFomCFJvO1viyeh m0anijdtEuEmMPXc AWl9DSu3FVHyyTrdAxRo MMU1PfG0ACJ5sHXuuH7v mMsqwcuhvV0pOff+TVJO OjwvdGQ+PHRkIHN0 lLuzWOtcHJGwrV9jDCAa E4d7IbYoEoN7FOhdJ0Sh sqA0XJEhuGByJCJzxWMB eZ0hsiaeg8myhlki DfIpQHNyIAg8BWh4XTTp nWzpEyEiHTW3WmS6YEO2 uKBjcY3djGijpiwzmF0j Oyc+WPK7HNQ8IH78 XL28Z3RwSqicgEWabQU+ PHRhYmxlIHdpZHRoPScx CQGfSiVwjBjcFF4bRh3q ZGVyLWNvbGxhcHNl OiB (more content not included)... [facility] Coding Summary [employer]Base 64 TytausonSXe8fTj+PGhl YWQ+DY2ODWCrR46bjJZi zO3YR5iABQ8ABWZXFZML KB9ZSS8agOE5VLwrW5Cd biAv BmlxbRAzJI08ICq8UTE0 mKweROiaoF7qvSIwF0h1 CbVlUX37fO88OTwqSUWz TpO8YoPspvsopOOd J0tcPnChvLGbQwb+PHRh YmxlIHdpZHRoPScxMDAl JeTndJybEJ0mOa1sOZDu LWNvbGxhcHNlOiBj h2mjCTXxJEqeZQ3qzHjf C2YqmOS1AARvy7t8Wd20 dHI+CONwLDB2eKbrVZxa x817CaUqc8dkYRS9 fIZqMCwnFXJ3O21nk7E0 OZItILSkZCA8xSZ3jQ3a vJxxmlbbD8TxmROcOnD5 MPU0uMAmkA9zuAtn kbnllP9fTvg+X04JBA1V MQOQAZ1VZkg8Y2IhOtdj dHI+XR86SKNwZZ58kAFs cEOzb6mytAf0ZuEs YKOgTID2cQhsZOfxh8Ak BNJgO77msHIqv2W5OIEt bEimdBQlUuYzyWY2wX6y EWlmdjxcm2uiuhxm Orhhc5oqmo89uK93M28z TJhrUDZeEJQ0LJPfPJAy eBuncb2jmL5nNz2+IDxj q5vcg6ztzFh9RcOn RGPcjfXlyLykCQN6s7Sa Rn54I1VfmPaml1NtVon2 ua89wJJhk0Z0eID1XKgn VTOddW6dTHjgRcC9 RHNdNrGfmU67kSNqGCtp Ta3lbXbuiJcpWO4sBCTh rlsyXSRelK2xMVIhhIIp sOrqKX1mPDHdjdzo u586XgOqTGU1EAWcsUVs N4PncP6hGfNoDUWaSOBz R6DulCQaETupO069IEtb HeH6AQKfsnQoX7Jn ZZQpkErnZqN7a1N1Ui3U v2YfuegnCKZ2GMacCOW5 DxN5WiCkHkL0A5KnSjb6 QQZwrPnmJI7jY2Cb ZGQvxynpycomiKG3EAAl BGAueF28lVOdBZxqBi7y n8B4u556ODDfCPUqpH73 Pg1zfWyqTQHnbZIQ qM1rwhtpd9jaaqasEqTe DGOwRZk4ZGm8EBVpjBav CeEpKXL7TpE0XZX2fDGd kL7pvWaizeedmL1k Oyc+G07nnR2aTLI1YBH5 zydmOPXpecIuXA31TQ24 T0KpZbsdnZWhyUW+PGRp vjWgeOjbZV8mIkPa w1fze2CeGEinP5ObRERe TJfnBdb7FTSfQTO6tCN9 tB5vWQRqRYiqz7N9yOT4 R2RrltHgdc2gt3rp KHXiBUadF80alOQbd8U2 GCJdoWG7AQBmeKqzZqHd gG68Ojg+XIIomXeya6Vr Owcdk0pyy4qljQe8 IjMwJSIgdmFsaWduPSJ0 g1HrKo43R59gLGksDDJn ITQpCAHjWWJxpQxela2i nL5wIe9+PGNvbCB3 xCY5gM1nRIGiNyH1QUan T923JhJdpSJbNfgjd7sn t9pxrLv2QbQyNJLwokQh bTmlTXC5m8VxNw40 Z75mGOsdIBTlKJEjPYEc DUVmjFaqtb7fvL0tRo4+ EM3in4qsew60gU30zNL+ DWNuSYW0mQroBBlh KCOtsG6iCDmvVhJ6LIMw PoWqwB91jLHcPRsuOi2r fKxcpDezSU1pUWAimiuz y224MeAaz9feYVQw sPTeIWtdSXA3N57wl9R0 ZFVwHKRaEBX1jKU9pZ0o bGlnbjogbGVmdDsgdmVy jGxhCAnaQJdlT422 IHRvcDsnPlBhdGllbnQg MpTpBWe1Q3FwDvz2QIZp dHurZN8yiMCcCKezXj4s oUvveZraXQ7oVKJu cairw610KiKoe7zsTTBu iZVjVAtiRWZ9Z16zn8T5 EFSwHDWlMZU2iTK0pO2e bGlnbjogbGVmdDsg izPpjXojOMtdTFveZ658 IHRvcDsnPkJpcnRoIERh qHA1CT01VP64jXMyb0P8 bUW3L2XsQJAqvsdc hhoczHK0WKWnVIPeuQ18 Ki1jqJxtQn7nOFZoCPU6 DQFuxMKjG7VbuK5vJmQn RPUjCVMzU1FfkKHe SZxlA505WImgHqN8NUOl tmXeG7OnFUQtbXsvDtQ0 u6D3Cg0SC0K5NK26XY71 pOBev7Z0nBL8D5Up IVBvjfyzhxhifNF9KWAx PVVzyG11Ah8qhEpdTj8c GLGkDCK0CHPqmXFsG7Ya kL8eQuArVHWpQRZp T2HvtCJkXZfyK500HHdc PfP1BNKnzvYnQ2PpWHIa cArjWyF1z6K8Ln9EDAj9 LT22PW51pBFxy6K5 jLZ6K5IfUCCljmnyjwpd cRB8RWInWGKkvM14Of7a aUoxQb1kKOEyCHO1UZUf mJBbB7DwiM8yDjXu BLVvXNVqG4TlpZBpAFuz C961DQsqZpA3YJKjmiEw A3GoAAOhvJomXsR7t3X8 Gc4MNRXeIG21UTS2 mDS0BT09HE58Y4DlAzon dGFibGU+PHRhYmxlIHdp ZHRoPScxMDAlJyBzdHls TU8uTx7tOQEvAQBd uYeyxHPcBuQnr3gsAVYf LNmiXY9gwVblH9DpbSR8 WIFxn7p6No71G75tB4Rc dXA+RCTohKI8uFK3 jT0sZaYhUoS6ZDozV156 YnAmdWReKdcnl0egi6zh hCs7EnM7CEIjeyAuaPzt RCI2a2NyXv76E48e IHdpZHRoPSIxNSUiIHZh hWyvdv3uoC8qYj8+PGNv qRL4kYK9vU4zEkPmQlI5 ETjhH286GiKurVAu Hbvyz5udp4pkhXu0HzVm EMEampUxvEsvBFY4i1Av Xh97L6QlaQbfb7ZtDea8 cq03gSAdr9W1gMX0 X6EsBNYxdkfusCNelSto ZZ6jVYQkropkSGEyeU2k BBBbJ9r5MrKeHaI3LFdv R7LnqoV3EGRjsSNu XXanRZF9M81bu1B1WMGi POJgFGY6sQX3bY0efEyw bjogbGVmdDsgdmVydGlj HXkbUHspP688AHWi yXgjNWAqpD7iDSVmuTRj bFsdXL9lVQDvnevdUeDP F7YKH62THQOJH5UGFmUf TBqUFN34R8TvYmb5 YWFoxKcqGC9gaJKlCMrz Ck4swZvqwImvBG8kAXMt twbuIGPokT9wOEPesECb nTjnVB2bGNNnalwk w243KgVcILA2NPJmhAXt I4IfsQ0gEbSwRNAtHOGi F7OgvPPdAUpkE635HNbx JuH4KMSvotDkC6Zz HGVlmUthCeU8x7H2Cx8p RI2fBm5sHUL9LM13AE54 yUTmr5C2zEF8N2FnUQFt yhxggwgevWV4CGJk RVToaI31eKTiSUwqGq5p r7L7v559EBRhGUXpbD16 Cf3xjCdrVXSwcGGVjL1g jhplp9kiivfkQyHe PQMiYRv0RFf0ZCRgcJxm FmXyNNN9CwE0OBM8dAXa qW6jsMpkftyrzZ1tWlj+ RXBaWAXgutA3J5Rj Tzn4DBUrvLdrHF7efPOn SPjnXk1gkNqlnBjvBP3e IAVexbbjRFQagN4zNGFo uXSsuWilWJ9zQYBn nnjmj704BePwXQI5SCWi rBLrF5YctD7oUjWeQNGg URGzO1AvnTNlUVylG667 HMrlJyT5YQBwkwKm T2SwDRDgvExxRzT6l8G1 Mj0JGCvZTH62EE02tFXk o0Y2nTE9U7OmTVUdpgvj umgfyMI5KVAiCPEk iP33iSAaQGbhSe8xo4W8 z785CTQcKJTuxZ75Be1i wPzvGPVrwMNMcH8hukbe k3tygmdsUnPnLGLc DMu4OYq3HKThkEayCqWw SJU2JiZ8TAX0iQVfaZ9e mDdrjozakT0oPzt+RW1l uxggnoI4NE30GJ65 C7JfYbvoyTGbfPL+PHRh YmxlIHdpZHRoPScxMDAl XvUmsBsjOW1kDe9xDNQx LWNvbGxhcHNlOiBj f2ohIIQoLTjwGQ6twIrz E5SqzCM0TDGdo0m0Al83 F04zC7XgrSQ+PGNvbCB3 uAQ8dN4nGaOdUkO4 AQmcT816YjCpdSSjBpcq g7nye2sykPz0BtGkUVMc zhAutSevMXO7t2FhQk41 C85gWLopQPUtDDGp ONPfAOBnhBhqfg7ehN1w Ii8+PIFokWX5jFC2mO4k EtObOrX6NLraZ775YlZe sQMlNojuK81tH2Te dXA+HCIoLxd0LDRzzWoz XG1osIVfVUnaLg6vPWU1 IxFsJkLtDKxaS3PrNVNo hmfxzskdcCE7YBRo UHBvfC07St3hxPhcDe1m SGReVPW4JDLfkMOoF9Du eB6rLiHnVDEkBJAcX4Ky lPFlHJjzC857PKxv RuW0JOBkehVwV9FsBTDa bOznYtG6o2Q9Ma2BjCss iYPrHC4kTaUsSIc9E3Xk Eqp3GGCjoKhmJG9j qYHgEPcpFu0hpHlcbLpq DS8eRPYozdxku422TeOm l8dnBHQuhUUnAXxsJNO1 W20sj3D0TKWqCXMv ISK4lSF1uF2lcNmbbqua bGVmdDsgdmVydGljYWwt YDyaF057WZLfxTtcPpUI Ccd3R8YdItq7TMYg bHynXD3ylZKmFWfgZt0k fZysxDxhNV0eUGVoiacd j851BrAip6yaRYLhpBTp LUbiKRP4O82fh4V0 NOOdMGPfDUN2nGJ0eL2z bGlnbjogbGVmdDsgdmVy rWqlCIveZNkmO295FTMd fSiqAh5UTcw7Q0Xy Xtg3ZLJdzXmxTK6zrAVh LTeuTx2jbFtuqIorIY3v TTKkejfxb996LuRvo2tr IDEwcHQgVGltZXM7 S16ob2R6BXAkWAWaLGY0 eDR7wW2ulStnzzyjeQLs dDsgdmVydGljYWwtYWxp D449BLIizPsmAkLl eWVyOjwvdGQ+WV62av41 G6QzXnblHoc6DDVfAMJ5 nRY3zO0pEZDxDIorw4O2 kIT4N9UazoUklb6w b2x (more content not included)... Normal [facility] ED Clinical Summaryon 2021 ED Clinical Summary [facility] - Emergency Department [address] [place] [id number] ED Clinical Summary PERSON INFORMATION Name: ROSA EASTMAN Age: 56 Years Sex: MALE : 1965 MRN: Acct#: Visit Reason: Hand pain-swelling; RT HAND SWELLING/NUMBNESS AND TINGLING Arrival: 02/05/2022 14:13:58 Discharge: 02/05/2022 15:08:00 LOS: 000 00:55 Check In: 02/05/2022 14:13:58 Checkout:02/05/2022 15:08:00 Address: [address] [address] PCP: Britt Penaloza DO PROVIDER INFORMATION Provider [...] Syndrome Follow-Up: With: Address: When: Andrew Mckenzie [address] [place], [place] [id number] Within 3 to 5 days Comments: Diagnosis [...] for reevaluation. Prescription is electronically sent to [facility]. Return to the emergency department for worsening symptoms or concerns, acute shortness of breath, chest pain, abdominal pain, nausea or vomiting, or any questions. DIAGNOSIS: 1:Cubital tunnel syndrome on right; 2:Paresthesia of hand Patient Understands: Yes - Patient/family/careg aver verbalizes understanding of instructions given Comment: [facility] ED Note-Nursingon 02-05-2022 ED Note-Nursing Pt presents to the ED with right hand numbness and tingling that started Friday. Pt also states swelling, none seen at this time. Pt states a hx of surgery to his right Arm for a pinched nerve 3 years ago. Normal [facility] ED Patient Summaryon 022 ED Patient Summary [facility] - Emergency Department [address] [id number] PATIENT DISCHARGE INSTRUCTIONS Patient Information Name: ROSA EASTMAN Age: 56 Years Date of : 1965 Reason For Visit: Hand pain-swelling; RT HAND SWELLING/NUMBNESS AND TINGLING Arrival Time: 02/05/2022 14:13:58 Primary Care Physician: Britt Penaloza DO Attending Physician: Lennie Wilcox MD Comment: Visit Diagnosis: Diagnoses This Visit Cubital tunnel syndrome on right (G56.21) Hand pain-swelling ([id number]) Paresthesia of hand (R20.2) Prescription Information: If you have been given a prescription for narcotics, seek immediate medical attention if you have any difficulty breathing or any sudden status changes such as confusion and sleepiness. If you or anyone you know is experiencing suicidal thoughts, mental health, alcohol and/or drug addiction problems; contact the [facility] 02/06 Crisis Hotline -Text 4HARN jv [phone]. If you received any narcotics, sedation, or [...] With: Address: When: Andrew Mckenzie DO [address] [place] [address] Within 3 to 5 days Comments: Diagnosis [...] for reevaluation. Prescription is electronically sent to [facility]. Return to the emergency department for worsening symptoms or concerns, acute shortness of breath, chest pain, abdominal pain, nausea or vomiting, or any questions. Medication Information: The exam and treatment you received today in the [facility] Emergency Department were for an urgent problem and are not intended as complete care. It is important for you to follow up with a doctor, nurse practitioner, or physician?s nurses assistant for ongoing care. If your symptoms [...] we can reach you if necessary. [facility] Emergency Department has provided you with a complete list of medications post discharge. Please inform your senior sql dba/provider of your visit and for further instruction on these medications. Any specific questions regarding your chronic medications and dosages should be discussed with your primary care physician(s) and/or pharmacist. New Medications [facility] [facility], [address] [place], [place] [id number], [phone] predniSONE (predniSONE 20 mg oral tablet) 2 tab(s) Oral every day for 5 Days. Refills: 0. Additional medications on your home medication list not specifically addressed. Please contact the ordering physician if you have questions about these medications. acetaminophen-hydroc odone (hydrocodone-acetami nophen 5 mg-325 mg ([place] 5)) 1 tab(s) Oral Every 6 hours as needed as needed for pain. latanoprost ophthalmic (latanoprost 0.005% ophthalmic solution) 1 Drops Ophthalmic once a day (at bedtime). both eyes. Visit Information Allergies: Substance Reaction Symptoms Type Comments Bee Stings Drug penicillins Drug Vi (more content not included)... [facility] Provider Orderson 10-18-2021 Provider Orders [id number] #[id number] [facility] Coding Summaryon 10-15-2021 Coding Summary HTMLBase 64 EfpnrtymFGh9oLx+PGhl YWQ+ZQ9ADLInZ18hdYUp tH1AI0wJLG0JNDCEKYNC ML3ZXC8stVA7HEzxS5Jq biAv EslxlYPtSH98ZQk2DDE5 tGakEVugeE8nlXDuX1t9 NrGiFJ62pU04WAvgJJJj TnY5JdGsxrdchJEw H8yrCjQcaBNgMnc+PHRh YmxlIHdpZHRoPScxMDAl XtTkoGawLF1lQr2rEFBp LWNvbGxhcHNlOiBj e5xhJVBnYGddRY2wiRcm J0NaaVB2ALTdx4m6Qh30 dHI+LAPbDAR3yHaxGAlq m084NkDci2stNVN3 mLUmMIplXVR0R74uw3O3 BZCdEKUvJSF9hON7rT4g lAwgynjnH8UrxZPiWpW8 QUL8tSFupP2scPaj pgrzdD9uJlc+X94RBA5Z QTLAIP1GAbm9E7HkFsdy dHI+AT24IYGpEH80cWHu fFZih4wdiNh8VsGf OCOmJUR2mBwrJUoac9Tp ONVsV86zdDQaq6E8JAQo dUwmlQIgJdMzfBJ5wA0a JBhdtqudk6ijckoh Gmnio4mbfw95yV11R91y UWebDQBwQJI6NJVwEDFq bBlazx5plL0iRq2+IDxj a7vml9xghEa1BpHf VIZnjcEkxUrcNWT8o6Oc St52V9DcmRetc7HqEfj1 wp59cMHbz5S9bIX1BIch RGBwdK0uPTriOlW3 UETqSwKpyP03kWEuGBks Qc6icWndmSviVV0cKXIr hjnvLNVviA9hRYAdhAHd uYocMK0cUSHsjaqx n861XxNrBOD3IRDjxYHk B4LtdT2uLsLrTOMsKMLv K9HjqCGdRIgpM821JGaj XaV8EDYxwkXfK9Ml FNYpdQlmBhA2c1G6Rd9U f4EmycozBAS4ZHpmHKBi MmB5PnCeJwE7W7KnNsm0 KWOqcXzxDF9mG0Nq GLWzlmcbcqkvpSY2YUMo XKDdtG73kHPpHZrfOz4p z3P9q665NCBeCWScxY88 Kk1vnXbeLWLejNIX vJ4usfial7ehiqylMbCp NBQxEXi8JRy6DVLlhUae UnGkPBI8LdG0PYW7mEZh jH8zaHsiriuxtG9s Oyc+V03glM1bMYL0MDC0 ipnxZIKuuuYmVZ90PT27 M8GjMrijmEXgdKX+PGRp rjSbwIcdDE6tScEn e2qzg0YaZMrxW9TzNJKd GSuoRfc3OIDbLWV0qOQ6 aU1uLHUkQFdbt8H5dWD3 R8UcgoTwnh8tx7oy RAIqBUzvS24uhUBun2K4 TXTxdQQ4PUMagWuyWnJu bV74Uwv+IQJwxVhnq2Fy Owpsu4yhx2giwKv5 IjMwJSIgdmFsaWduPSJ0 x6NfEy42U77dPEoyKBOy PJNrZCGeJKRnuCzuda0b yA5pQd9+PGNvbCB3 fCY6fE6gIGAzUdR8ZKkh Y625TiYbtLWbWktfq0me z6vsbSt0FeFxHYOgrdRk oXdcLNJ1y4VhFu84 X39vHJbpRUKxPMBkELUt UIBfrUwngg5jtJ8qMk5+ GT0xu8wtxl00yR18hVT+ VVQwPUX0qNcqJZru XBBlzB4tFZyoUtE8GLNz WmTpjU11dVVfGAqgAo1v dNgsjCbjZN1pOHQyphfs f617CqMas2rmVQAw aZFhBHnoUVX3C76ir0N7 QKJkQSYdRBC1uEW4bF2z bGlnbjogbGVmdDsgdmVy hIqjQHykRBnoV818 IHRvcDsnPlBhdGllbnQg NiLrMWx8O3FvEbg5XODj uFjiSF6tiYCmUWpzQw1c gUkobYwoKR6jMMBq lcugo045QyNqd1rwFYZe yVLrZGibYLU9M05xx4P3 UJStHTAoVNS9nZL7zJ4w bGlnbjogbGVmdDsg xjJtxVleMTcqWAmnA410 IHRvcDsnPkJpcnRoIERh uSV0OY61MM97nJLqz8Q2 hOW1E2IpXVZjbwyi xcbpzQI4FGEjCQItiK96 Ip7oiVprJl2yMPOzBXD5 OVKkxWEaI1UfzT5qYbIz QUKrCRIcE3TymNSx QTkcG361SEiqCxM5SYFh psQeT6IkOFWjmLkjYkO9 r2L5Tk6JZ5A6ZZ36EZ31 jMZay7E6tQJ1H9Hs XMYrzququmaqwQE2VKDx VIDoqA01Fr7ulWipPs5w MIXwDNZ2LXFpfCCvJ7Zm mK2tOqIhIRZiEPZm Y1OtbEBqIMtkD702VDwk KlM7SBRlguHlW6UwIEEn kJhwEdI6u4J9Gm7ENUo5 AF12AV28mPSax1C0 zID5V3JqHCGsngbrmpkq cWC2BZIpHTHfgR70Xc2e yLypDp9oZDKePFG9NYRa wGEnD9VsoF2jYvQm BLMaNOSbK1FnoQVpDKqj M860OQyeAvD4QGZowiZi T2BpYUVpmXyrNxB1c3E6 Fu7YXQTpZN94AQQ5 cMP3IS44QN74S0IjPivz dGFibGU+PHRhYmxlIHdp ZHRoPScxMDAlJyBzdHls KI7vOj9kFUXtNWNg pDumvUQgIdNnp5xlCJIt WCedSX2puVgpE7SaqOE7 EJRiq0g8Ph51X15bT1Qi dXA+MQQawYH5jVP0 yW0pVyNtPsX2UWliJ312 YmWyrXMwHyzrn4rkf7ih oQn7UfH8TOGibbKwgQxl QPB2t3IeTp65Q26b IHdpZHRoPSIxNSUiIHZh bWhszi9phF2qEm0+PGNv gMP1kUY4tO2oMhSlVhY1 NQahU985KiPzhROb Rjrsv1mhq2gtzVo9RwId FKHpkdTviLujLOJ3y7Fu Ev87M6NuaAair7QjHkx3 rk83hRQso3G3rYS5 P5NbDWHxatgzoZUppAjz KR5yUTXkzrmbGTUqrB7c HUSgR9o5BhCuBbA8JYod C3TafnC4FOGtuSTn ZDapNBO4W02dz1I5GGFy ZOBaYZH6rZW8hU0bkTuk bjogbGVmdDsgdmVydGlj QJtuKJulS342BATk xEuoWZBiyT2jWZXvvSAk fGsaTN6uCEJynvpyFkJH Y9SSD07HFWJOD9RHFsLz OIpQJN28G3AzKqt8 SYShhCjmIF2asROmUEqa Hm0xcEinxTqvYJ9qBQJz kvbfDJBvzA9mJPMooFOj cGkfYZ9qOEIrqwzb u405VvRiORJ3GZYutMOr I2BrdZ2iQyXpIWZtKOOz T6JshNPrXKvnT073JCwl XlU1HZMgezKpC3Iw QEUnzHvfWoV4x0O6Vk6k SK1uWc7yOXN2MV24EM39 jUGma2X5bMG5G8VqVVIk ykmqeonwdNH3ORWa XCQayV93fHCkJMbvKh9v p0G6u084NUEmCTYqiE44 Ep3niWbdNFUdeAOYnR6q ozlvl2vjpmkmZvEq UWBeMGw9BLh4UXBzhGxl GgJgKJD1BoL6AVR1vGBd dJ3moQmyswmxaH8qDwr+ LGExAZKcqrM7K2Rj Brq1TFTinHibSW9pfZTz IHkhOk6snPptfNhdZX9v DTTuxnchGHBwqV7wPUGn pSAsmUuhDM9eLBRi prtmf193NyIiKJP4ZEXf fEDgG3JsxE2sQjVjKKRy RJAdJ9YqdMIdZViwD762 FEcgSfF7RJSwgbVa J3YbCAYsaGviZjO7s2D0 Ch6JGIaQTI39LG96uEOl h0F7nPU4U9NtPXFjnfkk oztxvXG1ULScNQGw qT27rEIoEBanJt6tx2L3 e430NRZvNUTvoX84At1j uKipLHUbcQPBkA9snyrn d8ifxqjrQfLqYRHy DFy4GVk9FVQnlPavSnWg ZCW1QcM9LBR3bARpxA2p jVfqcfrznI3wGpd+T1A8 Y3JsMvycgTR+PC90 HXVoRJ68wMLguCGlf5ax sZa9KnXeFDPeGYY9eBiv MBbof7LvQUGtE48qhUDc h6Y1YPMgpVvzgXHq IfPzqWP6zM3jFGliwjqd k6knslajRruto2lniv57 sU66R62rUPldSGGuAOTx KWUwOCTsdTxrcc7i lC3fHt0+LPXihPR9lVM4 sD4aNaZgAwD5JHdjI772 ElTkhXLiEhxuo6wdw6cp jVt1UaVwXSIylwTp uKahWMD1y3UbFw98S05w IHdpZHRoPSIyMCUiIHZh eCctnu0xiV0tYx1+PC9j r1tjff89lA80vZG+ RJWqZNX4zYogFRjgYCEq hQ8vDKnpSlO0HJJtPiTd hE70yZChTEdsFl3itFfi qWffYS1rDXOajfyv d447TvKxj1tuNAOjaDUm ABoxCTW5Z21cq7K4EMRz DJLfPRJ7bRM8vE0weSmx bjogbGVmdDsgdmVy uXzjDHkqIAamK586DCDv kAdbHaQcnFAoI3gfhkMT WZ3aXppsnND+PHRkIHN0 cExkWXbzMDSfaZ6n VFXhH1u9DxZdDxX6ANbf C1IdtjU1JXAhvCXuKAZj sXIDkX9kiwapd9pjcosr AkLpPETlUKj3HNs1 EXZuaBtdHvWgSUL9SkA7 MXI8tPAwlJ3gkHmeelsl bP3nJlk+RklOOjwvdGQ+ YKBuCBX4kEvaALtb WKZyzD4kDYZpN5d3RbDx JoQ7AKlzW6VfngM8PZFe mGLqOYJesYQAvQ9tzwlt b4mqkjckVlCrFNXk SWa1YOh6ZGUguGcgRwYn EQT5WaV2ARI5aDAtyD9f pFzubaamlS0jEwj+TVJO OjwvdGQ+PHRkIHN0 mSsmPEnmUQVabJ3uROKu Q0w8IqGaKrZ2MEeiK8Vx rjH4OZXfzTWzLSTrvTRE kV2jtngbd3hsgnmc UxAnDOKkOOn7WFi9NZPm qEgdLaFuWUZ7YhL5QQH6 fSVdnR0gcOcoinvomS4v Oyc+DYG3OZS5AR20 XY57Q3VwZyffoFOkmTO+ PHRhYmxlIHdpZHRoPScx SXVkMaFgvQanOE4pQc2i ZGVyLWNvbGxhcHNl OiB (more content not included)... Normal [facility] Rad - MRI Reporton Rad - MRI Report [id number] Normal [facility] MRA Neck w/o Contraston MRA Neck [...] Torre MD 10/12/21 7:46 am Technologist: JERRI [facility] Coding Summaryon 08-30-2021 Coding Summary HTMLBase 64 XqlgxtinTDa8sNg+PGhl YWQ+WT7OZMGgZ75mgHTe nK2EG7cALC9WWNKAQUNT XD0DSO0ofNJ2HNvtI0Ac biAv SfmmkARbTH33GEa7BFM0 rIyzYBiojB0shNPuD3y0 TzYvMX74nC34IHluIEGu OfJ3YzVmuaoqoNPj H1gdVkTkzDZiMtr+PHRh YmxlIHdpZHRoPScxMDAl PmZizAvwWT2uZe9jFPHe LWNvbGxhcHNlOiBj l7vnHAVhUGtrXP7hdSng D8SlhLV5RVDxf9a3Sq87 dHI+XHNdUCT4fSmrWDiz r892ZwQzo3auOOF9 uTEsGGitFAV5Q78ru9X9 ZUMlGVXlCWG8wIR4dG2q tXbsywscC4WqsDSuXkK3 IXV9aTTclZ8mjKtj dvocvI9yQxg+K21CFJ3A AQWGLR1AYcw5Q6LzPofk dHI+ND65ILSyIM59rMEw sYAao4yjrEd4XiJv PYCqAWT4sEouNEmiz5Uq LUOzW87imBQhk6G5DCQg dErmbKXjHjWdhOD2tU2h IBcpdvltm4vlitmj Bmikl5wjcy46kJ87P51y ACemRVBgSNQ0VFUiTKEn tEftup1ydW8zPq3+IDxj d3npm1dwhQx7IeNb LIEvwkAezQqhMZD7b4Uh Xp82Y8RifBiza4BsUxo4 nd44kSSov7R7aJM0POlr INZrkE8gFMpbRmM4 IYZbYhEhkT09jEGzUPug Ea0ypWgxgOltJY6hVWZy iwduONIfqZ2xMAHqhRKa pOlxFO3oCAXlqrut e456ElLsUPJ0MLJhdRRd C1GjfH5gZuSzAREvOOHd R0DvsHPzVWmjM234PAog HiW5BMAnhaMdU0Np LUUflUssJuB9e4X3Ug9F o2WetifqJQU3RBfgXWIh OfWfDfBnHtO2M9JvWhx8 CBSskLutVB8sZ4Dh YUTecyabikpjdZQ7YPSj TAJfbT78pEAlDNfoCb5v s8A8p727GGQwROYfbP47 Rk3mxCiiTHJzqOKY uX8frrszu2sqffnhSvAa EEUfBTp2TQb8YCEquEht VmIuZBK8SuW6FJB4pEEm nL7fxXithuashK1l Oyc+K56uxD1vRAQ5NFE5 cpapMCNxhwZbER80DY74 Z7YsZnrlhPWysCS+PGRp jdKmiUywZW1xGyAv h8yzz2PaJZcaX1InNPQe FNozPby1BPRbUOR1dLK5 rF8zXVKmNAvac5S4fGX3 E2ArakYkna3ne1ee GPKpYMeuD20fgCSmq3C3 AZVzjYO8DISsiNxmFoZq nE20Tck+PGLtoPbpi0Dj Mhabf0dxk5mcuIh6 IjMwJSIgdmFsaWduPSJ0 l1IbHs62Z35gKTarIADp CASoHXRnAJYveZutta7e hI2lQu5+PGNvbCB3 sHU5cP1zOMBuTfX9LHbq U136WlAieDJxLivlb1yo f5nqnWw0DwOwVQVetqDv zKlpXBG8l5SgHj72 B10fWGwjSUGkZEFlUMWk FRGqxUjrxp3nmF2iEd7+ YM3mr9eqxg76iV14eGQ+ LSClVFI2yFriRScl QEXzcR1mBQxjNrC7GBSm LgAprG49aRWmSYjeWn0i cCliuGhoVK9rWZZnotdx m143QlUcn8yhZWKo vAYtDFkfPVX3O97dm2T8 VRTpUCGfRAP8oJZ9dY9q bGlnbjogbGVmdDsgdmVy qPrnIIyzVJkcH255 IHRvcDsnPlBhdGllbnQg QtWaNXz9K4MgSvf7MDJm tOisUM4llZTsFCfmMf0l zEnxpEgcDT8lFAIt hpmgx909WlZkc8sxXBYt qSFsQAqfJCM1G67wp6Z2 WIYiIUHpBEO6bOI5yB9t bGlnbjogbGVmdDsg zbCamOdnVGyjJUmxQ754 IHRvcDsnPkJpcnRoIERh jNQ1FR34HR99xURgn8H5 nHQ7H3MqMGVpamut fskdeRX6MIFxTPKtgQ75 Xx7ytEciAj0jFMGfAQC3 VLMgiSCzM4WufM4yQoBl DHVmDILvO4EqzUIf GSudJ617COphBaO7EQUg wzNtQ5NqAGDvpYlbIhW9 m7E3Bs6WO5G3EJ18BB59 jNCyk5D4uJW5J8Jk TSZewpdjiukqzXI8DQYn KTRjhE92Nh0ruQexFj9z TGIqYVA4JFGqiXApG6Pb vH2bFxTrYIYuWIWu D7TuiPJdDDtjS995HBjq YnS2PRMvmcApG6JjDAVy gRymBaD6r8P3Uf6NWBd4 KS04JB77wIKmc2G6 sMF8M8GoTGEsaktvqcqy iUI1EPOjOLCfoW84Jx4c kGzqTp7uZWPfJWV5DGNc ePGwJ6JgkA8aQbLw FAJqJFHxX8ZxiZWaXSfi E592GTmrYmO2MHEhpuKb I5ZxMWIaiYyyGuQ6v1S1 Pt7HCIZzII80XAG7 uAQ0UT26FO11O4XvXqvu dGFibGU+PHRhYmxlIHdp ZHRoPScxMDAlJyBzdHls CS7xEp4iXLGoBOTe xFvibAXbLgKmt0yiMKFe EHwoJR0epSbvR2QvyVR6 UAQio0b2Iz94O78xI4Oj dXA+OAJouCG4dHZ0 hT9dPsOsVvL9GTmpR321 DxMtgIWrOympa3www0sr bYp8SyZ1YCDjpqPlwZiv LYH9h7ArJl49B51e IHdpZHRoPSIxNSUiIHZh qLjwxe1nqH9lJv2+PGNv eJV0xSK5lT7iIqUiIvP2 EEplC404BfBegEJg Fzbbq8xky3zbjYy6FcIi NHQuclAtmDizMNA8g9Rg Pi79V8QyeRzks7DbFml2 hu61hSOgf5E3rOD3 T5SgHRAhztjycUCprSzh YZ7oLCMuppyfAHStmE8p WZBlE8d2OsBbKmY2WRyx K6MbavM8WCQkdRNc SPokWMQ2Z73at5F4EEVx RETtUXO1xGX8vA8noRvd bjogbGVmdDsgdmVydGlj WCsqQYbxY092FZSl tKyxLARzjN5rBQPkfQSb oAftIR8uHUCkoiznZiQC P7SWY34QGKIAC1QHLwSi DWqYXF97O0NiVdq5 JEWiwSteOM6zvZBkTZwk Tn4wgFuuaAqjIX9uHYWi ghseXVLghT1lGAVaqNAe aEvxMZ1nRPStqefk x977FdGcYTN5UNVuhWLw X1KplL4jFkJtHSScRGCv S6XktULhAPigH494KWga OtR2ESNbfnImJ3Pq EIFpgUmcSiJ5n0Y1Kk1i FN5gGq4sPRS2IC38DT37 eMPtt1Y7yFT0Y8ExMMDp hsbrpmctuRN3VDFj KCYzcU60uVNuRExkRz5f a2D3t437SRZlOSIseM12 Ft6kzAyfDCWwrMMTaJ3l uogsc9xvbsizVuQh CUFmMKm7XMk3SNZllUwg DfVkVQD3SqY3AVG9nYGo mY4paVoviyskhF6sAri+ XGGdZWJaztS9R2Yl Rlq9XAVvdGxsDL2qzQKy AZvmEt3emBbobHobIB3n LYLmbkgfTERfaI0rUFRe vFHdwRizPZ6iPUPf pnnlf373JmQzPDT7GGFd dIIqG1BddT3kSmPlLQKe PJEgH7DmtHIpPCdvS388 GAxqVyN9SFOwqmYy T8GeVROlsFjaAyU6q4Y8 Pn2AZKoIZI60JL31jZKe w8A4jHX2Y9LdQJShqpuq tgktrRM0EUJxKMOd oB59eSNtNAyrTy4re7R9 j671XXOiBKGdnR56Li3y jWfxFFAcbBIGaU5orjch d7ayjnyoXsUqZOQb HWy9RNc1OVGhsKxpPiJj OZH7JsZ7GPO9xTUiqE3k zSjibhghxE5uKbg+T1A8 N2RmJhspwAD+PC90 HQAhWG46wPFgpPUkk2us qPu1QrZbSBNyEGV8qItq CUrsj0DpUNAlR96lzVVr v5V8IPZcoUsfgIFq IiUwsNN8pA4vFFpsesmo a2hdvloaBaweg3thaa11 yI03H33oPEdyQFEuIFJc KLHhQTKwkJbdqp9r hX2xMk8+TXGkzUV6uLE8 hW2aSnDsHfX5ECeyQ513 HkCgnSKrCzzxz6jgx7hu vCl6FaEmBZXhqcJx rUzsQMG8a6KwBq13F84z IHdpZHRoPSIyMCUiIHZh lHykyh0xsW4bTb1+PC9j j9igln78aE34xMD+ SNDmNEW8eDavNKfoGTAl lX3mCMhsPmL7SKRfSdHk hW65gTCvGZwzAn4ueUqe xAkxLJ9tILLuxmvy i841TzPka7ngGYIenBSs JPsxKIJ3A07qc7L0REOw ZFDoPZW3jFB2bF9zcDnn bjogbGVmdDsgdmVy xJwaWQisBXmbV353ZXSe xMvlHoPiyWBtO0musfBK DJ3oJgoetEO+PHRkIHN0 yEkjYYpiHPPpfR5s TENlK0k2LzMuUiZ1CCcl R3UjnzI0HWDbiPOyDBVb kOPFoH8mzijin9tgzmod BlJbMQRlVYv8BYc6 OMTbsDadWvKmUTM0WfC9 GWP5iSEwfY2bkAjtxafm rJ7tBpg+RklOOjwvdGQ+ NJGxYCE9gNjvGVuk COAagX1nZMKmG6a7AoUb NjL5HEbtU6VpolY5SQMg xJUgCWIblBHNfH0qrxym j8lsmqhbOxUhZUXx DHz5IQq1UYHzwDmfExLl UAX6HwV7RWM6fYIuzD4h tYuaegpiqP7kUwy+TVJO OjwvdGQ+PHRkIHN0 rMbuIOkbCCCrgR4eSSSb G7u7YySvPmD6IByrP6Bc mbG1CZNqjNKpWNJkdOVE oO2juptzq0htlzba RnVfWCHeKZx5RRd9RGJc rNinIlGcDZQ9EbQ9RBQ8 yMOpdF3srUcjejlmwY7m Oyc+GZW6LLQ4OQ57 VW09T1DjAjnapOSzoKP+ PHRhYmxlIHdpZHRoPScx DBAsVcGezPsmSZ4uUs9r ZGVyLWNvbGxhcHNl OiB (more content not included)... [facility] Coding Summaryon 08-29-2021 Coding Summary HTMLBase 64 VhsddxspKUx3fLl+PGhl YWQ+QM4TYRUeA22tqJDn qA1GW6lQSA4WXIPIQPER SC4OVG1ikGK7MPgyF5Ul biAv HiegrSEuAG64LIk8WBJ4 eOqpXNowfH2jcRQpI5y3 AiImWR97cW92JOckFAWp RxQ1SwSiuroxpHEk K4oeAsNtoJLqEdu+PHRh YmxlIHdpZHRoPScxMDAl NpYlbLirPF8oFv7pCOFs LWNvbGxhcHNlOiBj w3lvXHOeNDgiUD3esCxf S8KgfJS5MGGif4u4Yl32 dHI+WNYuMJX4kAwzVEhd x275UwTur0nxUSG8 mAKoTJikEXM1X56no0X9 RIUyWHIkDPC0aAT3vA4t bHkfqsogR5RbbFYoWhW9 ZMP4uKAlzI0spJmz digyuA7jYri+K25IDE0N HZISLM9GPsw4H9PmOcxn dHI+ZO47RQWwSK65cROj eHAoe3qtkTs6PwOc EUMcGBB3tMorEVjtq6Ql JPDkD03tuDWbp6K5IXDf nYrqoVQzAcMrzRY3wX6r KCsjlltjt9erfsoy Yxyas2kueg05dB74F82w HFoiKSAsTKG9ZICdRQCs qYmxrw5qyB8iWx1+IDxj n6vhs9tzpXh7NpKe KSPyhpBwnEmlEZH6j2Wy Kc43K1CdzZdti6CkMiv8 qb04xXDvg0B6bRH1KFmb KVPeuL8fCUpxBmX9 SVKvHkPagZ94aCMqBPwh Fd1tiNpxeSwqLT6wNADq dxxbBKMatO5bIKMzySHs vZbfPX2uBNPlafws t283QxImSYV4XHSggJMz S0KfeP3wBiTkOIEgDGWj E4LooETnPLphY977BPsr MmC5OUXxylOiY6Wp ARGcaHruEkQ0k6K1Uy6E h5CyfrzuIZW6USrrIDMe QmGdIsFdQoN3V3HlZqn8 JTIqvUixUV4rJ5Rr GWFhgutdhaaraOX1CMIu XSWisV02oDLoOLztHm1q x1M2w338QCMrWOVslF07 Rl7udJytLTXqcDFI vJ2lozcta1gmvgmaXpJh LOVxWHp3ZKg7AXOagGao HxCnFWU4FiG6IZA2sNHm tY8hyWcndebzoQ6q Oyc+G90mxP3hLBD4EPI6 sxgxCHBymvJhZG01PZ96 F4JiTiodcCKetQS+PGRp azMtqBkdJG0xNkNs f4rrs9CcEIlsM8YjUXXt JRyoGwc2MZHtVMA6kOG7 dV6kHFIqTHxuv0K6mTU9 G5RrvqEcjr0tk6dp ESBgQFkzA89ssQIdz7E4 DLMviRC6LPEbrDmmSrJm dM65Gav+WAZnrRted6Hl Neigh2dob1bnyQw4 IjMwJSIgdmFsaWduPSJ0 m7WkJs12I74gZOvqBECf FKEpZKQkSJKzwGjtep5c fM9tJh0+PGNvbCB3 qFX6rZ7oMKPcUgK9NPip L406TcVhoWJbPwsnr0zq i6wahVm3OgDaSEDlciBn tHslHRG7o1CoEd42 M26rHKgiEBLuYZInAGTz LAFoeQbbrr3fgE6xFv7+ IO7wx6pdqs93bX42hWV+ AXRoJOI9jPdqDEfh NOGgiS7jIVdtMfH1BSWy JzDbuP86bYJzLReaDc2a rXwfcLsvZS5bUPFasxgv t622UmIut4gaSUJv vXEvJWdaCHL0M55qk7L3 UBMdIUCdYQG7uPX1tP2e bGlnbjogbGVmdDsgdmVy eRqqDFsaEMrkZ479 IHRvcDsnPlBhdGllbnQg FhAiVHd1G5TqWxy0IZYv mIuvQX9mmMCuMOldBc3y yFfobTfrLD6yUJLh csciu372TeAql9pwGQIp tOKnQKzuXIC1D73ls9H3 IPGsIHTvSUX3fTB0xI6q bGlnbjogbGVmdDsg ssEkmFnkYAewFIheI800 IHRvcDsnPkJpcnRoIERh aYN4IY79GI76hQJkp4L4 jGB5A2JqYCJggckv bnqtsJL2WWEiYGTaaF07 Gr2usRujMh0jAFSiUMB0 MHKonDJcZ7ClcA6rPyZz WRDpNMYmA2DfkNYw GNgfB459CRyiQqH8FCJl joQxY6ZaILOhjFapAbK6 h4R2Nm4AZ6L0SX60IQ59 kJDnr6V6eCQ2S9Fb YQKdnvigpcitlWU4FPWr GGDlqP02Kj8efMuiBf8o KGDcYSU1XLSwnOPbP4Yr qL7eMkPrQXLyNISb C6GzbXDnBBrlZ692GZoo PpI2TOSbzxQhC2AbEVAf tSifUjL8s3W4Ep9RMFc9 TT34QB57uUDrs2G6 bKZ7R2JtASAzmczjusaf fPD5AKKeEYUzjQ24Aj3w iFncSy3dKSDyDGF4XSCn tOFyJ1MlzJ9pSkWh TMAdZHMaE6UipANeRJmm I883HNvbQoN6MHRnfeTo P9LhMMOatWpzUtR2j6H9 Js3SZSHbHT83TKO8 wYQ9PF96TO62A7VjXyby dGFibGU+PHRhYmxlIHdp ZHRoPScxMDAlJyBzdHls HV4uGq7bTSUdFXRr bPoddXPgSjByv5fiTHWx XUzfFD1ztMttP6GxfEW9 ACBiq4r9Nd23X25tB6Ys dXA+UQYkbPK3nPP8 uX0uAdRjSeB3JWdrO356 ZlJerEIvWjifq2vgx6gg uSc1AiE8TFSagrWcgOhn RUV5n5ZiKt98Z63r IHdpZHRoPSIxNSUiIHZh eMcstq0haJ8lTn3+PGNv wWE4vOC6hY1hCjOqIlU9 CJvqB516NtXbdLEa Godli9syq2pdqBl2OlQo WVFtwvMteNhsHZG7b7Ep Yi74W7AepFlvw4JdMpz6 ax98wGQlb8S1uIG0 P9HsHFGuhfspwWWhlRvq JK8xRGWrqschDACiwP8x AMLbH3q5QlKoItZ3EHsj F2LfxxB2MUSjyKKq EYgfWFD0H10mw8Y5GTWn LQUfTOF2vPU6rW7xnOfv bjogbGVmdDsgdmVydGlj TDegIJbdR548IBNf kDabBWXjyA6cXONnyUSo gRogXE8fNPWkegrlCdTI I4QUI58JMMIGZ4TIVfMb QRvYYC10J1XaEec8 LAJceKmhJT6ppYWwASox Eo8tqCxuyOscHJ1fWAGj fpljGGDdqU5rZMCopGJw fHyeAD1jXWEuoorv c962WvRwKLC9EBIvbLQg R5WdsY7kHkZkYOOtZYEo K5RnzMAzHDqbB335AAzr DbW5GDOdurXuL9Bs MJYcxBscLhA2q8S7Ix5x PA6rVc4pRXI9TF48JR23 wWInk7H8qGR9P5KoIQEv rwalvcwvqMT6XDDh VUNcrY13jKVxLBdwHh2u n5K1o598BQPvQVDnaW74 Wu0kmQxyWWDtnVFElQ8j nwznq9qrfnpdNnHt AZSaQQg7EQc4ZGLodOli RjQmSFE4VbY1QLO8lJYa kT9tzXlzjclecC7tNgv+ EQLwRCRyuwW7A1Gy Qft5FGGnrTxaWV1iwFBj OXvkPf6blAwgvAmfMV6f CEBrfxccDNIbsV3vUHRt aHExaPbcPZ9bIJQv oozqn308FtXcZBJ4ODVo wRKnA5YwgX0iAvFeMTYd BZVzA6ApeKKtGYvwT607 BOdpFtY2PLVgwvOa B4BqPURjaMsnVrZ7h5S7 Yt8VEPwXFO46IW64mSZr o1V1fTM8O9IpEEUlerrd cnbhtYA6FWXjUWXp eW54oELnXOusXi9fy1Y5 q152DDJkNNEnjD81Rq7e lPemXGPtsSGHlM8lfcda u0buijooGmUlZPDj UGo7MNg7GPUxbLajUaEl QRY4LkE3YLG4yXXbnG7z kFvsvuuzgI5bLfh+T1A8 G3HrPucmnRW+PC90 LWZtHK11fCMmyGRhp3px bWo2BtOdKIWjEVH9fBam LIuud3BxJZWiP74vhTIu n4J0AACqzNuznFGz JnHbkMU0bT0iYNoohjre w6amssqcWbtja2dnym58 oQ09H74bXVezVFOaBRPc CRVfDUCppUxxsy8n pW2bWq9+GHJrwKE3oHT6 lA1iPhUoTdR9EQrdG799 NeNwoIDiJjqrk0hbc1yz fKc8AxBiLDVcwvKs yNdkIGM8s7AcAg58O43y IHdpZHRoPSIyMCUiIHZh oHwbux8gxS6iKv3+PC9j n0jksf19bI50cIA+ CMKpTOO1oXphPFtvRDTf oN1rWKonSqS0LXWqFuBj vO85vLVvYSwiXz4haRtk uQvfOT1qTGIqkrmf n630KwPfi8dpBEQtsTUy CEmeJMP5K98da2C8YVYe GFWsDGY6gIF4wU1hkIoz bjogbGVmdDsgdmVy eXibFZkjDTggE848HQYq sIrpOtUoyKKcG1wogiWI XJ6zGwrwpGI+PHRkIHN0 zKjlVWbeVCMsoR4m LTQgA3i7AdIqAxA3SIrp Z9UdjmO4DZXxtPYqCICb tGWTwC7fcpuqb5yydyjt QgUqKUYtKFi4QRf4 BUPvyMdxJsJjULW8DqW0 AQE8cAZepX2soRhinfdn oF7yVrh+RklOOjwvdGQ+ AXEuERJ8iSinIPws BGMdwZ0iIAXaR6v0SvTu PeT1CRnqV4YimgD0SVQh lNXyNAPjlPQDpR3xvufm w6glghzoTjCkHKUw LWt5KSt8DKJecRzuAbFc RIO6TrL4SPC8pWGsvG4t lDgcymmzyI3gOly+TVJO OjwvdGQ+PHRkIHN0 dMpqBJdvYEMffU7eQQUg B5m1MvWpPwC1OYovT2Bf qrP4LXIokBBoNDMyvOBC kM5qeajst0fpwbry EjHoGVAbSTn8PXj2JWAn rUoqQzIeUDX9UqJ0ASW5 nGWtsJ0tgLzgbkepkC8b Oyc+ZCB2XCG5TY21 NP40Z9OxCsntzZPlgIK+ PHRhYmxlIHdpZHRoPScx TRHwTnTbpWarJV3kVh4m ZGVyLWNvbGxhcHNl OiB (more content not included)... [facility] Provider [place] 08-29-2021 Provider Orders [id number] #1.00OTGTIFF [facility] Rad - MRI Reporton Rad - MRI Report [id number] #1.00OTGTIFF [facility] MRA Head w/o Contraston 08-10 MRA Head w/o Contrast MRA HEAD WITHOUT CONTRAST; 08/27/2021 2:19 PM EDT Clinical History:LOSS OF BALANCE Comparison: None available . Sequences: Axially acquired 3-D gradient echo series for the purposes of olow-tc-bslggy MRA. From this data set multiple volumetric [...] 08/28/21 7:28 am Technologist: JERRI Normal [facility] MRI Brain w/o Contraston MRI Brain [...] MD 08/27/21 2:50 pm Technologist: JERRI Self [facility] MRI Spine Cervical w/o Contr indu [...] Rosa Deshpande MD 08/28/21 7:38 am Technologist: [facility] Physical Therapy Noteon 07-12 Physical Therapy Note [id number] [facility] [place] [facility] Orders [id number] [facility] [place] [facility]29-2021 Provider Orders [id number] [facility] C[facility] 2021 Coding Summary HTMLBase 64 RmkoxkjxMTt3nQv+PGhl YWQ+SD3CWLTjC77auACm kY7PS9xYNF7IFFVDKFJK ID9BHK0taTD9QGoaJ7Js biAv JfnjvESvJN70CEq8SPA4 cPlxRHcnrP3abBOqO0x4 VxIkVP46cE49PFhbYXDx XyV9GqXloepkeMYc N9bxLfMwoLAzSem+PHRh YmxlIHdpZHRoPScxMDAl OdUlpKrqQL6kJl3nNHIo LWNvbGxhcHNlOiBj o9vyHVQpSRugRF4sbRgf O2NrbCL8UYOmy1y7Qm39 dHI+LEWcETZ6zYobMDhy v332HpGel2iyQTJ9 kMBlRIjtQYS0B85pe7X0 WTNvAQAzJLQ9oHE1gX7h pChmqgihB7RdcVGzLxX6 MBC9yEZfzN5xpTem egbsdZ6fMwc+J29LCL8D CUUKVV3ZSbs5L2EaApbt dHI+OL52GKBsQY70kFMx iKAin7cjyRe9DuIk WHFiWLC2bSggZXchw4Ue RAAwS84xmIPpe2J9IYFi kYtcgIMcEqOsaFR8tN6s IGutzijlx0dunpam Toktn9eiho57yN91M85e NRizXOCbGOY2LEZgBICa wQbwql4phN1kXu6+IDxj p8aej5swmCh8NgZx JQKvheKpdOgwIGL1g3Nv Pp80Z1MeeHxuq0SiJgi7 yy28oMHvg1M8bXL7AMqh OPTgbL1sGJgqCtH1 TAKlXkYowR74tFAsNJjd Cm6shYjheRdgBE4lXVJi xzsqIQIzrD8fSPTfkBSd zZgsSB0oIDXnumru x510KyMmFEV6AEYxhABq P9MeqI0dBoWbOADpNXGf R7GaeKBvVVihZ782IOys RxX8VYRdlhNpT8Ia DYCanPhoYvP6u1A2Wt4S y2PjoeyjVWQ8TLbsOUK6 RhL1ZjTnDcE3T6KsUiq4 QCQfuCfaGT9pX5Hf FFQdudmrpkbhhZT6DYAd IAXyvD64oXBbTMumAi0m z7R8x452HWRnSBRwwT40 It2qcRopEHNygNMF xN5ibvcjz8yvwrtzDsXl TLKbXCp6IMy3NOStbKwo KePnTVL7AhA7QNM6bFMe xC3jfUlezormzE7e Oyc+B60tsN2cYGU0SSX8 zaslCTSsqnVzNS15YF81 B1AeLmunhEOwtGY+PGRp gdSboSzfYK3xHzSi q4hug6BuDImhK2AnKWUv BBuyFly3UMVhWLA3mFK8 pO7nIZQbOEisw5Q4aYM4 H6AmziImtq5vi7vf RMFlREsyT03mtACav9B9 YSTnuAI6LAFbbOmfAqLp gT30Bnu+WUCnkBgpl5Ye Xkfzb9adc0dlpOz0 IjMwJSIgdmFsaWduPSJ0 i3XcUa02P25lBIxoPMVo ZDTaRFBeAPAxsFmman8j rK0kIs8+PGNvbCB3 uKI0nQ5gYYDeEpW4ZGvp J034MdCwuRDsNpcon0la v7lnjNd4RbOtOJJgueSw oOnlHCD1s8WkXm68 A88fXLltOOCuUIEqRLKq DVOgrZtozm6weU7dLf7+ UH5es1wokp23lD99xWT+ ENVuYLI1jKqfCRne TEAsaC2yEPqzYyV0AJQh RqOkbI24fRDbHYrnMw7t nDsrsJufON8sUJAzohfh l625CcOdm5yiUPUo mTPcQGomVPH0C35kz0R9 GWNlPWPrYNO6pCW7iZ1d bGlnbjogbGVmdDsgdmVy sDqxPFifSMxuS043 IHRvcDsnPlBhdGllbnQg PqSdVFo1E9SgHwl2XHQb jJriHM5paHXjQNfcBn1g vAeyhUscRP2wMHZi yozuz818ZcPja0grBWGu pTCkGVroINL4T18vx5Z5 NJPxTBVvAAH4rPF5uD5o bGlnbjogbGVmdDsg svNlsLpaOFlvAKguU716 IHRvcDsnPkJpcnRoIERh lOW5ZZ84EN90rJMaq1F1 uJP5R7MqTDNojyee jwkybGY6HHCaSCPccW25 Vk2zdFjpUh7yHDIwTRS4 KKDrbKKyZ6UnkC2dMfFl LYYgVDHrF0PhrFGx PRycW126QCtuPtY1OWJh ykUhX1ReEVXymPbrIlL2 p6D3Kg5TE0L8LI25UP92 pGRfv2B1fSH4Q2Sd LMHldkhdzasmjFU9LOPx PVCnkD53Zu6ynZmvWb4b HHJhVVB2YUJjsAZgE0Kz xA7bRnAmTYHnHNWz A4MejEApJTqwX401CZha UmE0CGStjeIaA3ClHRTo fDnzGvY6a2B8Op5QHKd7 FQ81ZJ50zTRzb9R8 iKJ9N1LdXBGwvhynxjwn yWZ6IVHzBIIufN33Iq4r vNbqYy8cVSEvXQR6EIPr xWAaR7JqiP7dEoPi UUYpJTYsY4RjxRFtMCwv W676QNfbIwA7PLWozxHh M1SkCGChvNkzMfN4m3J8 Au1SLCWlVB25VOD4 dIG0DI14VL09H5WpUhuu dGFibGU+PHRhYmxlIHdp ZHRoPScxMDAlJyBzdHls OB1yWv0yZPCmZGWk dAunrTQeVxNce7ngSXAf WFryBO1wnOjtQ4JhbHL3 FXJhr6y8Hk92D35xF2Ba dXA+EFUpmNV2ePK3 eS1jMeBdZmG7FUbzX127 WsBupHPwZwfnj8vxw8tt xGv1NkZ0RYXqonNwgEly ATA6c5ByXf75D90k IHdpZHRoPSIxNSUiIHZh qOjzfs2ytU2tDu9+PGNv qBI2lCU8gB6vMxNjAcK5 FKuwX778LrHwuBYz Frlhm0zdp3wzjBf1ZhRx HIVdfpPocSorDBU1g8Fg Kq87X5XxcSxue9HeVlx0 da12iXTzr2O5nUB5 X4HtNUUtzcsrdBPrvVtw WX1nLSAswvpqQCMedN4h GWPtR8a0PeEcViF8GCwx B8FrznC5KAAhwQGf JYjzTAC1Z68bx7P3RRDa FZZnCLS2hJZ1qT7nlXqi bjogbGVmdDsgdmVydGlj FNrcGLkcI719BJXp vOftSMCldB1nNXYjhUVr pNcoID6tUGPyyftdRlAJ M8FJB87ZNWPNC6QAFcRt TOyTQS21C2UcErv8 VXQkpCpeGD1nnEIwBQyr Xw2krVielTaaBU4nKFId bbpvYWLqzN7nLBXynPCj jNqyXH7xYTGeaplh d547TsMmPPS2CALpyXJx O1BesB8pKxFqTNJfATBf C4NulXYrOVfzF179XXii OdE8LQYkeoYwJ1Qy EPBeoJhnEuX9m6M4Ee6x MD8sGm9bBPI0MU99MP73 rYJxm0C1iGE2J7MzCLHh uympzuwqzDV5VTJt ESCvtL45dHDwKGxoSl9x g4M4g894UIAuWLJkgA03 Rh7bfNmmCSWqgZKWtR0m erorn1surhszNtSp YGJqTXh1JWx8XYDfhDeg UmZeLJX8XzL3SRW7gLVg fH3anCrafkrlwW0qAnr+ KRSxMIMbbkU5R4Cr Him0NUDksPfcRM6ccZYd STzcLd3ohYkjnSheLX8r ZELygdjxDGFnvK6fNQWm kQYpnQhkHJ1qOHAs azzio325QuJsVBN3SLQi pJRlL2HffM0dMeRpIYUe CMWlP4ZadWCcPZiiH200 IOrcNaA9BLYznjWr Y9WqJTQhqNdiBxG3b1R4 Av3GHGcZNU07AJ79wQIq t4F2bZT2B3SlWFIqqawg vrkmtTR0RLIxZKEq tK17iBXpOXejCq1bn6O0 a500GIUiCBNjmC63Bb1z zJxeWWWjbIDPgQ2fkaif d8vbdmekMwLuLMJm VVd6YQz6SJUghZauTnUn UTU4JlP2VVL8bBKpjA3s iAgpwtrrlT4fWwc+T1A8 K7HhAuyrfLN+PC90 MJRiRM49lEGflGHkb1jv pQt6SlRvMILyVNI8vXwz IDazn3XpIKBdT40jeMKw m0C8EOTftQxdwCVq FsCogFC8zX8oMOslgxjf f3ufpkiwSxlue8xxib99 fJ92H22vKOzdQMZuYXRs FJKmNKCjcFudro0t wG1eYy0+KWGchUT8tFZ8 pT2nFmShLnI4HOziK905 ScMqmJDpOfcwq1taq5wo gIm6ZhGuUJYtxcBu sYesVST4x7AxCb79F03w IHdpZHRoPSIyMCUiIHZh gWwqqt8rvZ1pZk5+PC9j x0nuyp11nV98kNS+ IPVbSUA7oTypEDhgIJHu vB4aSUsyMnC4CNDoNfCr eR11mJPkLKymCg3cbOuc fWfhYH8cSQKjlzzn t643PnLhp8jfLZFhiIIl AKwyYAV0Y02vo9N5NYGz GBGdMNZ9eBH6gY6sbCeu bjogbGVmdDsgdmVy iTcvBXhbXQwyU771YFZv pOlnCbAfjASxG1lgloTE EM8lZvntcCB+PHRkIHN0 rLtpRHpjKOFzgR1s FRDaF8o2DsRzQnF5KUok J7BzddD7FSGspWNdFEAg mEZEsH2bnwtzn2elyydc RlZgBVNvUAm0PPl4 MYQhpCrhGrOxRVI5LxC2 WFN2mMJcaC2bkUukpstw zL4vZzo+RklOOjwvdGQ+ UZDsOPE4uTtcURfa AQDkqW4iQMEbL4p1QcTb MlE8GHjuM6TeqtZ3LTNd zBNxKHYyaUKKbP7zpjnh t3bfvomnQoDfWHMy HXr4KSa9RKRuaWskByEj FWZ4CtC2UGE7zQPleN1z nRvsweztzQ7kKti+TVJO OjwvdGQ+PHRkIHN0 jLihUDolXHCkbM6jMGUl G8d0UfOpRfJ4FPorV4Rs psL1VZNofPUnJRDqdWTZ zQ8shbcbl2ouvuig HlRuXJEmWGj3HJk0OWKw uCgpRdMdYQJ6WuU5HSU2 tHGzpB3uwTostjfylS4m Oyc+LBB3WBL1GT99 UX47W7HnAajocIGxgWY+ PHRhYmxlIHdpZHRoPScx JQIsTgRkjZzdPL9eBp7q ZGVyLWNvbGxhcHNl OiB (more content not included)... [facility] Provider Orderson 06-25-2021 Provider Orders [id number] #[id number] [facility] .Auto Diff 1on 06-22-2021 Auto Cache % 10 % Normal -12 [facility] Comment on above: Performed By: #### 1 [id number], [id number], [id number] ####[facility] (DEFAULT)[address] [place] [address] 95885 Baso Abs# 0.2 x10 Normal 0.0-0.2 [facility] Comment on above: Performed By: #### 1 [id number], [id number], [id number] ####[facility] (DEFAULT)[address] [place] [address] 30494 Basophils/100 WBC (Bld) 1.9 % Normal 0.2-2.0 [facility] Comment on above: Performed By: #### 1 [id number], [id number], [id number] ####[facility] (DEFAULT)[address] [place] [address] 71062 Eos Abs# 0.4 x10 Normal 0.0-0.4 [facility] Comment on above: Performed By: #### 1 [id number], [id number], [id number] ####[facility] (DEFAULT)[address] [place] [address] 91093 Eosinophils/100 WBC (Bld) 4.7 % High 0.9-4.0 [facility] Comment on above: Performed By: #### 1 [id number], [id number], [id number] ####[facility] (DEFAULT)[address] [place] [address] 92483 Lymph Abs# 2.9 x10 Normal 1.3-2.9 [facility] Comment on above: Performed By: #### 1 [id number], [id number], [id number] ####[facility] (DEFAULT)[address] [place] [address] 39744 Lymphocytes/100 WBC (Bld) 33 % Normal 14-48 [facility] Comment on above: Performed By: #### 1 [id number], [id number], [id number] ####[facility] (DEFAULT)[address] [place] [address] 49851 Cache Abs# 0.9 x10 High 0.0-0.8 [facility] Comment on above: Performed By: #### 1 [id number], [id number], [id number] ####[facility] (DEFAULT)[address] [place] [address] Neut Abs# 4.6 x10 Normal 1.5-9.2 [facility] Comment on above: Performed By: #### 1 [id number], [id number], [id number] ####[facility] (DEFAULT)[address] [place] [address] Neutrophils/100 WBC (Bld) 50 % Normal 44-88 [facility] Comment on above: Performed By: #### 1 [id number], [id number], [id number] ####[facility] (DEFAULT)[address] [place] [address] CBC w/ Auto Diffon 1 Erythrocyte distribution width (RBC) [Ratio] 13.2 % Normal 11.5-15.0 [facility] Comment on above: Performed By: #### 1 [id number], [id number], [id number] ####[facility] (DEFAULT)[address] [place] [address] Hematocrit (Bld) [Volume fraction] 45.3 % Normal 34.8-51.9 [facility] Comment on above: Performed By: #### 1 [id number], [id number], [id number] ####[facility] (DEFAULT)[address] [place] [address] Hemoglobin (Bld) [Mass/Vol] 14.9 g/dL Normal 11.8-17.7 [facility] Comment on above: Performed By: #### 1 [id number], [id number], [id number] ####[facility] (DEFAULT)[address] [place] [address] Instr WBC 9.0 x10 Invalid Interpretation Code [facility] Comment on above: Performed By: #### 1 [id number], [id number], [id number] ####[facility] (DEFAULT)[address] [place] [address] Man Diff? Auto Normal [facility] Comment on above: Performed By: #### 1 [id number], [id number], [id number] ####[facility] (DEFAULT)[address] [place] [address] 57396 MCH (RBC) [Entitic mass] 31 pg Normal 24-34 [facility] Comment on above: Performed By: #### 1 [id number], [id number], [id number] ####[facility] (DEFAULT)[address] [place] [address] 02781 MCHC (RBC) [Mass/Vol] 33 g/dL Normal 26-37 [facility] Comment on above: Performed By: #### 1 [id number], [id number], [id number] ####[facility] (DEFAULT)[address] [place] [address] 72189 MCV (RBC) [Entitic vol] 95 fL Normal 81-100 M [facility] Comment on above: Performed By: #### 1 [id number], [id number], [id number] ####[facility] (DEFAULT)[address] [place] [address] 48437 Platelet 295 x10 Normal 138-427 [facility] Comment on above: Performed By: #### 1 [id number], [id number], [id number] ####[facility] (DEFAULT)[address] [place] [address] 94118 Platelet mean volume (Bld) [Entitic vol] 9.1 fL Normal 6.3-10.2 [facility] Comment on above: Performed By: #### 1 [id number], [id number], [id number] ####[facility] (DEFAULT)[address] [place] [address] 60351 RBC 4.78 x10 Normal 3.70-5.30 [facility] Comment on above: Performed By: #### 1 [id number], [id number], [id number] ####[facility] (DEFAULT)[address] [place] [address] WBC 9.0 x10 Normal 3.5-10.5 [facility] Comment on above: Performed By: #### 1 [id number], [id number], [id number] ####[facility] (DEFAULT)[address] [place] [address] 05820 TSH w/ Reflex to FT4on 06-22 TSH Qn 2.41 m[IU]/L Normal 0.45-5.33 [facility] Comment on above: Result Comment: Gene ral Population (males and non- females, aged 21-88) 0.45 - 5.33 Females, 1st Trimester 0.05 - 3.70 Females, 2nd Trimester 0.31 - 4.35 Females, 3rd Trimester 0.41 - 5.18 Performed By: #### 1 [id number], [id number], [id number] ####[facility] (DEFAULT)[address] [id number] US Carotid Duplex Bilateralo n 06-22-2021 US Carotid Duplex Bilateral DUPLEX ULTRASOUND EXAMINATION OF THE CAROTID ARTERIES. COMPARISON: None. HISTORY / INDICATIONS: Evaluate for carotid stenosis TECHNIQUE: Bilateral common carotid arteries, extracranial internal and external carotid arteries are evaluated with hogan-scale imaging, color Doppler, and spectral analysis according to a standard protocol. ICA-CCA ratios are calculated with enrollment eligibility representative peak-systolic velocities and recorded. Vertebral arteries [...] Jules Tilley 06/22/21 2:18 pm Technologist: PM Aramis [facility] XR Chest 2 Viewson XR Chest [...] MD 06/22/21 3:55 pm Technologist: SE KATHY [facility] Coding Summaryon 05-23-2021 Coding Summary HTMLBase 64 PqzbsprvPUn6bLy+PGhl YWQ+JR6HBBVpA47dmHFb uC5TM5zMPF6FWNLJMDYU OH1CDH1etPQ5IDggV6Bb biAv NystlMGxNN52JMp5FYB4 yLdwQCxruK5ugEEfY9x3 FcMfSR88hN38DUhgQZJw RoE8KsIhwsiqxPDi J3chUnChmSXlLvw+PHRh YmxlIHdpZHRoPScxMDAl GdOmuAbnTV7nUn3jVWXa LWNvbGxhcHNlOiBj b4njRCCoWHjkDQ1ceVoh X2ZawXA4HAXpe1y4Dw73 dHI+BJBvVPF5hAnuSPbk q828EpYvx3nzIBW2 aOLuIPjoBGY1K13iz1R7 NUHqAAPkPWF8hZD5zE8q yWhzesjkJ5EdqMTyWbV6 YQX7rYPdkF4lcQzt lvxxaH4jPmb+J78OUY7N SVDQNW1STqk4X2MbOpxr dHI+PL90MKJtFC42eBXi nMScn5dgzTo8EwFr BJWkYHU6vYdtQMlfh4Qy QTYsO87qhGSdt5F1XDBi xTdwbSRoEpNcfKL3aC1s OBraqluwd8awpdyc Vblak1fjzf44dZ84D85n SVfhYGCjUBB2VRFuCYIt xPawov8mzG4dOg1+IDxj j4lrk6qnmTj4CkPi OXCgolLjuGleIOW9k4Hf Ps94C3DerUvir5ZeIse1 kf72wSOln1G4qKZ3RPcy TNWwgM8dRDepAnR5 CDMeZzIoeJ88aFAwDNbb Wk3lbObftEtoDY8eYVGu llwtRGDkpI1aRWLnrZGy zXfwPD6yDRUlhtzb e473OuRgYWG8ATKovVTg J0VvcI6oQvPkCRMaIKXe A5ZjrMKoZYciW244ZJgr UjS8TFFnykJyI1Xd CGApjEjrJeP1k7C0Xq2E f2PnbunxSNL1TJacFUC8 XtF6GkLaJzV4E7PhJse0 AXHyzMcqKI5vN8Ld MUEazcnnitgpgAI3VEMt MCTfpL70lWNiLKwtMy6d r0E0z848TDPfVJIsdM82 Uu8fbPexKRFqqZOD nP1sdumrk1qxkcbdEbBu JQYcCAs9LJx4VTWsmZho VhSyRNS1BtB0MOH4jTBq vL8xqUhhfumlaA9s Oyc+V03igP9hUMJ7QEA9 fupqKNSuetUaQN33BD77 Z7DnTqrlxXHogUW+PGRp ieTpcEhzNR2dXtDt o3kxg5WfSFpoN0VpGZQy GQeeRhs0ZQJbIEO4fDB5 tW9zHLKgRPijh9I7iCP1 T4VkitTqet0hq1eu VIOfFFlyL17rbRUsb9C1 SNTsjVP9GWSjbWneFzGk vO67Icy+MVBbyExhl0Xj Dduyz0fxl2oipYy6 IjMwJSIgdmFsaWduPSJ0 f5HnDd03H70yYBruERHy JCFiUZNuFMBcgXishy3a tD9wRo2+PGNvbCB3 zVG0kG8gIDVjNyK6ZRhr Z166JfYfrZXxHxjmc6gc v1qxjPl5ZbSdFJNlqeTv hFmrYUY2f0CiYj97 B56iYIuaGTWsVTTgPDDx WIRlzGohud9avP7bMp7+ EZ3kj7cpsw74rH26mGQ+ WZUnCCT3oGrhVQxm EVNlwV1hBShsZlH0OBXj CmRifM77vDBfJKrlHc6w gWvqzJhlQL4uQOFgtoet v831FlDry8jaFRWj zTEaOVdtEEB9W30lx1J2 SANjSAOfNCQ5fMN9bO8q bGlnbjogbGVmdDsgdmVy qTgkNFjpILcuS824 IHRvcDsnPlBhdGllbnQg RkTtSCd0G6SgEbb2HLVr jWxmML3amLTiADcvPw5s zKdxkPawOK9hQHHi ctvfu712FaZgb4woCLPw dXVsMBmeGXV6C52is6I0 XIUtPMEtBRS6oJB7sV4l bGlnbjogbGVmdDsg mjBeyBzdLFpzQObxA283 IHRvcDsnPkJpcnRoIERh nIF7ML05WW83rQFyb0Y3 tHS1Y4IpFWRujzdn isrsfRN4LWFrUBGkoT88 Qp3ieAzlTn0lQBIlUVH5 IKPrzIDtZ2MwkI5kYoCn NIHfBFSxN8ElcVFn JXuwH555IWwuXoX8JMLk fhTnS9VyOQSeyNflHeP5 f5S8Kk5ZS6X8CY65PT97 tRWdi4T0lFV5O3Ux AOOjeuwhnduxmJT6XVVb AHMzzB49Lh6yjYsoHx4y OPLtGGZ1DQZijXGrX8Bw hA2bMlAqUMCoLJQt K4KlbWTpXCniD121DZpg GpO7VZSdykDcA4FoWMCn lUmsUqC8u7N5Ru9WQAm3 DD73NB58tKMoc6L1 kLQ8K2TyBSBdpsflseja yAE9TFSxIMHclU00Jt2u dZkiQn0jARPbSPD6VDRr tJBuE1MihK2oZjUy JYBqMDWeH2TyvCKzRLeh K155KAsaZhA5JFWczqDc O5FqXFHfsVxnQxW9y8R4 Lu2TWPWsSA66KOG3 bKE1ZR15AM67Y5KhYpum dGFibGU+PHRhYmxlIHdp ZHRoPScxMDAlJyBzdHls KY1kKm6kZKZtGLYv rGiiuJFcFiSog1hrDHTa DVuaIV2beDjuM3TpwEZ3 VGLkd1j1Th24Z07fK3Ny dXA+BMDasJT6fGN5 gZ4zMfEyGwN3JTukR414 BuZeqACaBjliz1kdr1sq hBz3VzL4HEUijaFohEjy MVC0z8GfZc88M78h IHdpZHRoPSIxNSUiIHZh hIqfek7ojS0iZp6+PGNv aOX4fAB2iV1oVyQmChM0 HBraX062WbJibNOc Whzee4vny3cggYh5BxCz XUEysmXlwUffEPX8b5Eg Mg48N3IzlGkzx5NeSql3 pw69hPYsk6C5jXU7 E2EuNCJumpkrpQVldCgl OK5rCXBkcriqLENkjE5e DGQyO7u4KhNoItG7NChq B0YscmC3XKThxSZr QZgsKMN2X22nl8R5QCTc NCOmAIY9dIU6hO0ukBmz bjogbGVmdDsgdmVydGlj YEqsZVrgT480GECv qGmxBTPvjZ0xIGZfjOQt fCtaND4sYSGwrkqfPzXN A5AXF48RITWMM8PTKaIg TZnEKX87T7RySdw6 OZDroItpHJ6khSNrLHqd Br4oyVtqiJyzRE9lONXn twxjLJYacM0bUYQogHIl lTsyWF2vHEHzyfsc n535FzYmIWU3LWWtoLAh P2CgaI7aDuIgCUCxMMDf W2XssOTzXHwcM737AZyj ZbH7GWKwucIzL8Ml UBDevHchJaD5h8T7Ig6s SV7vUt6uOPT3US15XN13 mALxc9R4lTV5F3MtWFLr hvevjphlpPG4YLCk QDGdmY97dDUeBRjyVl2j w6R7i926HNVuBGHmrS13 Gz5arIbaSNWetNANyB5h aesvk8gscmfoMfXn ZHOlVRd7FMo7OXQvaPsu CbEaYGK2XoU3ZMX8eXEm bZ3tsUyodzbpeW3qWvm+ WTHcKAHgqcG7B3Ue Vod6BNGecBoaGI7yeNTc MNaaVi4loEwosJpyES9w MGIgxoloGIDtyO5yZHKh hUOamSbrIM7cRSNi gciik238BfFbXNV4FUEe kDSfC6GyvH6lUqXcGPQj ZJYfY7CcoXRrPDhvD975 YNemJjE9QEGmpjZx T0WuTMSstAjiBrP6t9U2 Ck9VSMaGDW10HI64rOGs d1T7sQI0I5RwQUMfiwad gphpgFZ7KJPgYQAj aC31iROgQHoxTs6wk6C7 u194KWUwJJXcxM16Qx7f lXjtRHWhqPHEcQ4jmtue e2jplcidSyOzVBQx AZg9DPv9XSZsxOlhIdMo IUG4JzB7VCK6fTLhaL4q tKyjyqlguF5oJci+UmVj nPGdgE5gZM92gJTj cFuzlkG1W3KmTxwnzTD+ MF86BGXiSC98fSYtqLCo k3xmgDz5ZcAiWASnDFV7 kXkdHNuyz8UlJKUc M16xfYCvv2Y9LAImuBwx nLJbCcTzuAN5iH5jTJun wwdua6ogpyljFsbxr5bn yk44qS39I35eFUrp ZHRoPSIzMCUiIHZhbGln oe0lpW5dJe0+PGNvbCB3 jDR2yT1jBaBxHfD9TJov E339NyXffEExJfab n8hka0uhfOv3HbYhGHUr niSnkZjmUGL6u8CvNf08 G49pVQteDINnSMZeZPQz VUSwyAwqra6duI0m Ii8+ML1lf8ieyc70aR10 dHI+AUEkRCF6rPlhPEuz FVUofH4aLUlsRvK7UQHs ShMdoA97uGNbBEes Kv0pzFnxrOiiFI0rWDWt wftgy674JzJbc3xbGCUw hOVxPAbfMBK5G61xg9C1 QRWkJNOhOCZ7nPL6 aH2rkSiadhoraBQccFiz ovLeyFfgITdfFSpcO179 FCFipJcrDrFbrAYpY4wd jdEKBW1oTyuxiJP+ NDEkTFC1cFjcCBsyBBXc hS2fAOQvP5l5ThUkFeG0 SKsgU7MypbD6MBYjtEOk YWFtvLKJtJ5lfbfb y6kechflUeOrSQCuLNr3 WYy7MBZvvOudRuBmRJX8 KzH2VNL2vAOzoS7ugAjd ovpmvT3gBdn+RklO OjwvdGQ+ZNPpSPU5cVwh OTgdSFRgsO5mGIUbZ5x3 TtOiJlU8ZBqxA0LnzyT5 IGJvbGQgMTBwdCBU dT4bjqxfg2ymqlpyVwZg ZDMaAJq4DUd5SUTsoJko LmLqAWZ7EjD7OET8pRHz fT1tpQjktlhqqL8n Oyc+TVJOOjwvdGQ+PHRk XOD4lZgyTPfqNDXfqD4z QBTrN3d8OoDpLuU3CWdf Z2OkotM1LKVfwBCr JODqcDOKwA0hsxyyy3uy cpciZwQdGLVqUFn7YRk0 USZkgZsbEtAhBVR8ZsI1 IOU0mAUjyV4roGio mportS2mTwe+JXL9CQL2 WF73IS20O8PqUbxaoHAs bGU+PHRhYmxlIHdpZHRo PScxMDAlJyBzdHls ZT0 (more content not included)... [facility] Provider Orderson 05-17-2021 Provider Orders [id number] #[email or web address] [facility] Coding Summaryon 04-27-2021 Coding Summary HTMLBase 64 KrhbtbfqSIr6xRi+PGhl YWQ+XT3LCIQtW07krNEi aB4JC1fNXO3FFCXLXVYV SP3RXE0foQV4DSbvN7Ss biAv FhkzcXKtGZ05BHi5ZZY4 xTgiZLernH9tqQSmD5a5 OoEqYY65lB64ZNzdCTJo PmW0GxZtuzmxmZZf H7woLrXkxTAoNju+PHRh YmxlIHdpZHRoPScxMDAl QmPocEavQV5rMi8xUHTe LWNvbGxhcHNlOiBj q8sjOTRvLSekZU6wjEnp Z9BliSO0AORbq8u6Yx12 dHI+UZVwOPU7bLglWCdi k644ZwNin2iyDJM1 eTMaLObcKOT1F95kn2F7 FWDgOWYiGGS1nAO5wT8m fEzmflmfK5FoyKLpEcS8 SCG7wTCckI5avHfc txpyrK8xHfi+C56HGE2I OPNWFW1YHmx9O2HdZxxs dHI+JI13WOFgMK09oOVi dAFpl7adwGt7FmAs AJYtQUD5gSjrOUmof9Jq OTRhU62ycNWvy1L7GROg uXopoPLdBcWcyJP6pA6l TRezxfxqz2rntquw Knqdf8ldad65dG44U78g EVstUSPpMJO8BHVtOTLw iSrrkj1uhO6uPc3+IDxj x7gto5cggSs4AlDx NYZyqiQchYvuOEV1r1Rm Wf18M0GvlGrpp2NsTyh8 rf52jEDap7A1eJF5OCdw DOSxtU1nZMsvHkF2 RVVzWmMbfY68oHPvQFvk Gm4mnEgwiTezKR2iSREr uqgnASWhyG0bDEDkwEZq cVueVB9lYQCooyvd q407WmVrPOG5GRZcuZXj T2AapM0rCgKvJMVpHDEx M9QlxZZbHWnfU180XAuk VwG9UFLqlpYcU1Ns PSQewUcnJlJ0w6M6Cs9W y2UllpheYWB2YHxeSUZ4 XfO4QiEjNqK0P0TsZcw4 RHZgnFcyUP8jC8Ub FJGvjripitrotLO8MNTo SCTgkW99aEEjNOtzJm2i f5K8i995QMPdCBHyaQ74 Lv3boVddYGNgsYGF cC0qudrzi9tlunxtNjWm ZNMuDEl1BCq8HUYdcJck KsIvXVE5NiS1GZL4eRYe qN6suBnjhpdgpJ9i Oyc+M60wcC8xUGY0DJQ1 qceqHFIhwtPwWX49PM60 N6NjCwpokIPdkAY+PGRp xxNusVmtHG7qTyKk d9djx3NaWHvwU4IcBFTv AUwwBnr3KXVlWDG2fAU7 gM2tLEGqURwmg8O4sAE5 K2FpluFvob8gq9qq YSWdYGkgE06muIDde7Q5 LVOkoGJ7SYXiiPzyAfWp xE56Kex+UUSkaTubn0Ck Bbuzv6twn7ctlMp3 IjMwJSIgdmFsaWduPSJ0 q8NbGc60O68gXCmmCMUi JQWlMVQzHHSggCtqzs3k tR9rUt4+PGNvbCB3 gBU2uR5nXBBgRoG7JHdb H876VnOzaHEzXbxpf7fi g2qxcXp6GsAsAVXdnbJw rZbbQTX2t9EuYj69 K98nANkqIUSyAMAnTKPe BUMagUjnmh5qhF0yRn9+ OU0ta1ffim38mN25zPN+ ANDeNRB7tEnsTOkp OHWrxD2vKNjjBlX5EONd DnBdiZ80yDKuTAwaDm1m ePbyuApzLG1oKHMnhcks j748RtPir4bpDNIt kLMcQPtoQVZ5V73pc1X4 QBYhNZKcKYB0mCZ8xP9z bGlnbjogbGVmdDsgdmVy dQtvNRquYLzyT948 IHRvcDsnPlBhdGllbnQg KqRoMXx2J9AnSir7PPUq aKzwYJ5lhSGcTIceJs7z sJkkhQgfJN7jQZEl xyvas010ZhIzy9zbQAZj iJKlVUawPXX3R04ko6T7 ECChHESrLRY1zIF2eL3f bGlnbjogbGVmdDsg hqKfwWmxUPfmOGpaZ672 IHRvcDsnPkJpcnRoIERh yDC3XJ75NX72xUXln5T7 sQP9Q3GyQDXufoiq bqsbkPQ3UGKsYAOtsR26 Oa8xnEhfLj1bGCTtFKY6 EEHlcEJwK3IxiP7mHkRe OKVvJTYsB8QieFJy DTntE880LMjcIiC7ZFZt kuHuZ9OhTJZslLdsCuD3 k9Q5Ui2ZG9O3EG48KC02 dHFmg2T7tJG3Z6Nz NHAobwepetzwkGZ5VTQg UHVniU98Bq6evMjlZx3t LYDhIFP6EUXldYIoB6Zx fL4uCdFkQKIfNBCf N7HcmPMxQHknO996PDri KiV4YRAlzmTaV1DlFGFw dCwiSlY2l3E4Lz6DJJg6 NA02IG76oVKeg0H4 mDV9X1VsZPIeqcykrjli mGD1JWSmJNZtyM56Pu7j qJgrVc6gVVMwXDU5OOSz wWNzC5EwhR6aTpBv CEMpPDFqZ4QybBQfTLog R913CFydMmR7CALteuTj P5QqPBOplXqyHjZ4d6U4 Bd7LQKWzYP15BPP6 vQH6NV25NS92V4SmWoqn dGFibGU+PHRhYmxlIHdp ZHRoPScxMDAlJyBzdHls OL1yNz9tVOHhDLRh tEjveOZaDgNwn1wqFMKi BYwlDO9enSuoC8KsyMR5 CMQrm7v7Gk28E85aY4Dj dXA+VCHlzBV8kKA5 eG6qMhDgJeP3DNhtU990 TuSjxEHlPqhht7rms5lo zQe5RjK0ZQActtPjxLja QYP1z6DxIh98Z54n IHdpZHRoPSIxNSUiIHZh qXxttn8ayR7xFi6+PGNv yUF8vPE2yE2eNmKxRvA1 BDqpQ619PaBpcBUd Hlalg6vfr2mrvFd1JmEk SEEifsPuwZmbMTY9m6Rc Wm13Z6SexCooz5QkTom5 eh48lCHcl6M5dDR1 S1CuNTItdbbeqCSncDrd RD4zUEEkxjrrZTNboO3c BGJuQ2v0LuYwXoQ0PNrc T1DzemD0IGDniRFt TZkrCFK9K34bt8X1JVXj HAMeBDB9dUD4jO1rjSho bjogbGVmdDsgdmVydGlj NZxtDEjhW401RGSo gDdhDULomV9eWZRjcMWl fLgfQA1oDCIkftykSgQM H0WLJ73XKMYTO2FJXlWc DYcRWE05U8UcOll6 OEGkgZqfXT1ohAFyHSit Zo1pdQgfvEacTH2xLHSu vysmADClyM4iIAVnsTOj zLmiRV2ePFEtgxwj c755GtWqBDR3QVAqwLNj F5ErjP2xQnYeLJDmAVSq J4HqnZBeFSgwZ360QJio AfP3DVYdipFlB9Eq GTOreDpxNqK5z8D6Au6u JH1eSw5pPTG0KB41HK94 oNHwy4R7cWT2K8VkWGNp xswinqiamDX4NMIf TWGexD44nLXfGXrmSf5j f1I5a380BAGbHLAdtV80 Kd0rbPamOSPhfNTAzD8i rcapo9npyehqFyPl GBIwJZz1ACk2UYUbvHfc YgAzMKI0ZfY4VUE5zSQr gG4fqThyjougtQ2aCnn+ VRXbIIHsapH8V2Vj Taj7HWHviZchNG7bgNJz IZxeZh4jaFmqcZuoTL3p BXWvjgtdVQXpdA6yUNDx eQIkqJudRL5cHXHu brcru399SnXuJDU3AJDh nMEfU8WguW0hTwOyXEXb LJPhE3SdoJHoJKoiT129 JVgrQrD3QKHlqxHm P3FwSTMoeRggSoY3d1D4 Me8IIAdNJN91SB68uULc l8Q0cIY2E2SqCPBrzgtz kgqftES6WLIwWKNb qL25qUNxHRsgJm3mb9Q5 a549EORoIFXbbZ74Mv1u pStpSPTzrEZJzE6jlkop p0pxdssdOxOsKVHl HZm8ZHc4JPLvjDbfHfUq GQA7MkT7SAX4kOMkfT2o oMngrovveJ5gSut+T1A8 U6DnDcldnLZ+PC90 CHQxII35tTLdaUEys8hq jFp2EsEtSPGkYEN3qZpp JCgtd2PmFIXaS71urNYe g9C8UUQdzJviuIUu CrFqtXB0nG6dRKiidclr m8jpelalQejdm7oltx36 wC46S11dFHymBXKkTESk DRQcIILcgWkffl7v tM0tOy1+VNTocCN0iJM0 yK2xCuHjFrU6YDcnK408 YoWqvGDbOrwjc7ryn2yl yDb0XpPqXYNwghKv oRamCMV0x1AiGj31H88x IHdpZHRoPSIyMCUiIHZh uZszui9rlS1zCh2+PC9j c2chlz51mJ06fDX+ FELfWAD5wNwlBSkgCBZo iA9oPRrdCgW1FRDkYhUg xX26zFEiATvtQt1alOej xPkeIY2rFUMgxeat t908CjXqm5etXYQxzNBk JOvjPDI9O27bu6F5DMHb NZYtCJJ8nKW8aY8sjAhp bjogbGVmdDsgdmVy pMtdXXazRGmhL515SPKq vEpxPsJxwKAuH4crhrTW YU3eOfubtGF+PHRkIHN0 tVqoCDtaQLCnsR0w HPQaS6d5GaLnZtN2PGwx R5XwknG7UWGieHToQWJt sTSBvD2hnaulx0ybnveq OvBtTCArBMd1NLv5 HJTknTbnHfFyFIM1BrT0 DBS9qREpbC5icQgxzqjk xN6sUod+RklOOjwvdGQ+ HICrWEH2wTdwNGtc OOSuuO5xKMVxU2e3IvCl EpA6NQysY7CruxU9FURo uWItYLOxuPYRsB9iilwn b3hcbfgeXcHpLUEc VPi9THm2GMQyrMzyTcQo KBV7XsG3OEW8qNZunQ2u dYrlpiqgdH3sAzn+TVJO OjwvdGQ+PHRkIHN0 bKtfRFzwGBRfrA0iHRPz X3s3MxZnJxS7KTwaM4Zu tsR5KDOytILaOVWwsBYW wJ2puuhyb9jtygdp XcIcPDIwAZx8MZc0JMKv sBvbIhEbSEB0JsH8MOC8 jOGupD1guOxyjxekiL8o Oyc+OVP7IUS6RP80 RH92Z7WuAbstcUMzkQY+ PHRhYmxlIHdpZHRoPScx XXMcMgWfxEphZF7gRv5m ZGVyLWNvbGxhcHNl OiB (more content not included)... [facility] Coding Summaryon 04-06-2021 Coding Summary HTMLBase 64 OobbnnmeNZq9hPu+PGhl YWQ+XW4IDJCsR04cuNRt bZ3GY2nLMV2GFBCGVPEK YV8ANL0usIR4OUcaO6Cz biAv MzihzCHpLJ68UKs0TUQ6 nLlxWQaasF3yxCUfU6n9 MkCgTG48lW61EGosKUIe ZcX7FcYnxpmbgHLw I0gcVmMxsRMxZvq+PHRh YmxlIHdpZHRoPScxMDAl BvQpyMyqKS7rJp7nWCBb LWNvbGxhcHNlOiBj f9msYMYxBYrjZJ0mwSyg J3TjfJD6HFOlr9q8Og19 dHI+CVCeXMJ2bJgfCPyz a673LzCmr9gkVXO4 bIKhTIilLXZ4Q58hc4O8 UWHnERGaJTT3vNH0uS1u pDffkdioY0KntDLlNeR3 JRG3zJXcyC5ocMcf sfhcbL5dOkg+Z37GPS4Q CBMWLF7FQuq0D5ZjWthu dHI+RS41ZCNdST52kEXf rCLhk6rxqWp8XzLl YMIhUSO7xGdmCZkos1Pa ELIpF27zpUEpe7E8TQXv eCbuyRYoTjDmeKI1qP3f OLzkwiwah2sllhjr Ceuga9rvvp63vU45P83s KWxjTRRvOJV2FZVuXWPl hWyafp6ddV4sAh5+IDxj p9qwk7xibOd8JpHm VIVbvfGvoDusBCN5b0Gg Dc55G8QiaHrmp6NsJhm4 ek61sAGus7X5vNM2PLmu OUAigE2sVRkbCcV6 WYZrUlBpmX39xYLbXExu Gb3vkAefzEqiQJ8aPOWp idlgIFVjyQ6xGQOgtWXb qNtmNA6cEPFhkreu a454HnWrJFY4IJQfpQTa F2FlfZ7zPcHsCXNbBTIf N5DpmEQbPSgnS351UPls WqZ1NPUuprWgP9Fp KVUguRkkHxZ2g4S2Wg5L i2QrxztaRNO2ZPliPEE0 PmN3KhTkKoW3L7VsUoy1 DJSeoRvxOW3jK3Rv KYDquyauneptfTZ7VREx TRKwtC36wQBdSMqaWx5m m3G8t039QIWdJXTlqT96 Ew4bpXabXWLzzFZS hH3ilyplj5dsnwrnJqRu IZNgVEh4ZJc2OMYhmLcx TeYxMGE1ZxG0FQF2oVIj iH4cdBgvcssjiM0r Oyc+J64faO8mVJO9QVP4 ohfsQJKvpiAnMD32NZ55 C5XxFuklsDElvWY+PGRp jbYdeJegMV1uVrUq e1ewt3XgDOegY2DpBRBh CWtsSfv6NWFwGUW9rBP1 hJ6aFQNkWTyeo6H2hWL3 Z9AlaaRttx2pf6zs HJYlLKxnB14yuQUci6D1 VQWemXG9NCNdhHnhTfHp lE93Khd+BKTodSjtq1Vf Kvmpy9weq4fpqPk6 IjMwJSIgdmFsaWduPSJ0 s5JhVe12W18xJVkkORRf ZWBcHDYcDXNpjSozys8n aJ0fOl1+PGNvbCB3 qHJ8rN3aBXWfNwR1AXee X295ZcSpbXEvHunkp9rs i8artRo4UzCaOFHutcJv uHlsUSL6q9OuZn00 R77cZLxuMPKmKMXyXPSe KHGuiHxcwm2imF9pSn0+ NZ4ha1ewft90pT92cUX+ SUXzFAX5cInaRYbk MXSpwN3wZPhgLrB8MIAg SuKpuF38gHJsHYhnHz1w vMnjaLncMA9zABXxkjda e761FjEql7hgKFRm dVZkVNnqQAZ2C26yv3R8 AXMnNMXuIGS0rYS9cX2n bGlnbjogbGVmdDsgdmVy yFkhXPndPXvdE813 IHRvcDsnPlBhdGllbnQg XlXuXJc8F4GkUvj1GIZt aUdeCZ8xtYPyKYcoWs6m kDfwdImzYQ5nCQCp fkywq157JdCtr0gsUMRe aJYnOThzCTP0C03fd5Q1 AVEuCQSqHUA8qLE3zN3w bGlnbjogbGVmdDsg oiXxsSwsQIwkGGghS457 IHRvcDsnPkJpcnRoIERh sRR1QE09JH40jCYky5K7 eYZ9S5VpRSIauobt eoixwKM8GADkAFKyoW84 Ju3ciYtnLp2nDPXzWNC8 JGXthOTpH0UzbB0iUqBg CXMoJAWfG6SpgNNe GYseW926EKhrRzA8QSSy uiWtC1NiVNUdzAlqVlB8 k3U5Ve4KJ1N7GZ29UG86 dZFyb8H8sCK3E7Dt WGAomlwbldblcWR2XZOy MODgjN74Bj0jkZsiHk9b ETObVBU0QAKcpSBqP3Xf vG9rOlXwAGPkWGZj O7NnvRQgZNahB632TVvo QpN1MANnubXzR3DwCCOl jZkcZyY6l3U7Ci9GBLd2 VB73KB56jRRll9D8 xMI3S9KrGCEvmsioazny cBA9NWUtTEBtkO78Zn3s jIsyOm6hVZTwBGB4LGFk iWNaC9ZflK3xVvCd SKVfHEWwE3FbeCDbFBfq O333GLyfWfX5DBQlwnOa O0KdVHNkgChxZwT1t2Z2 Tn9SCBJjUU19DUG2 dSF4KP38EJ75N0ArFdpe dGFibGU+PHRhYmxlIHdp ZHRoPScxMDAlJyBzdHls KZ0uJx2hFJSdDQPh rYqstSLbHcCnq4qyJSUb FHfxXV0uuDksM3HviWE9 QDDvx7d7Wp84K12jZ5Ls dXA+XSFjwXN2jVR0 yP9aVsYtWsS3JUzdT168 MhExsSNiNxjbs8gjw4fj eVz4AqA7HZZrzyTinZia AFD0e5UqSf65O89f IHdpZHRoPSIxNSUiIHZh hOushf7orS9qTb8+PGNv uYF7pTS1wT6nOcMuYpN7 VQxbP960UxXruNWc Aqjrl6mjo2mhgRz9PsLn TOFxznQudUyrKON2b3Ol Pg30C5DwdWekn3JmSfl4 ow11zITyw4X7jDJ7 Z7KqFIYtwxqjoHCvwGfm DU3tAYVevknsHUYjeR7o CZVjW4k7IzRlJwT4UNzw Z4LozdK0VNJudLLl NYyeYID4C45dd6O1MFEs AHUvPAH6ySX4pA2lrOvu bjogbGVmdDsgdmVydGlj BVzyFJkyO596FQGa pUtbBWDwgT7vAQNveVWe kNbsQM6yPGYtlbwaSeWJ Z0TDL80SFJAOH5SZFvPf QXqZAD60Q8GiZwn3 PALflOjtUZ0skOGtRZpt Di2tqTparHvsDK4vJOWg liydXZZixN3vPEHokQVf oGzpFG8nEXBjcmhz d195QeSnIEI5WAXzkHTx K7YgqZ0aBhAlFPZtFVPy X8LbkRVpGFckD637YSdn WnT2RFRipoHvN5Vq RXYnfXkzMxV5g9P8Cx8d IF5aRs4qQEV0CK41FA86 vLLci4I3kMC0E4TcRLIn lsdnpkhtuKH3CEEg SCTwaM97fFDlICzgEf8d o7M4m741VTVdGIZlnF21 Wj4csXtcNWWpwWUDrA3g jnkzt3vyoiywOxZg ILFzDTq3DMj8FDWjtQcv TuQvYDT2NjX5URH8nPAm iM2kqEcycmlxbK9hYqi+ JRDjCYBbdjR5K6Vc Djw4TULxdNwcCL4vxXRm ISpzGm9aoVxagRnuPE0p LOAtfwktGNTnpH6lAGXj zZOplAtxSG7zIAUx izjie476DxOlOJN8LCDo vNAoL9QewU8cTdQhETVx HXQfI3FtiAImSPjdM816 OAwwQrI6TWZhlkHa K0NjPIEgkBtfDrY4o0L0 Pt8NKQbWGI21KP46sJSo o9N1jNG1C3RqVCJkbfyg jpmdvAK8LMVnDDZa eR01nICaVIbsWz6tb1S9 v450OIThCYCgwK83Sc6r qBmyYWIciADLuB0goazu e4rhiisqIoQzEDNc PFp2XEa5PUNmySjrTfIa FWD5VhQ1RTQ8eLLbyO2a eEvftfxqxF6hGbq+RW1l icgzcvP2CM57HQ81 X2TvJlzhbWAdoRM+PHRh YmxlIHdpZHRoPScxMDAl TtIadLspGE8aVu1xIPOl LWNvbGxhcHNlOiBj x8waATTzAPawOB4vuRdh Q4HvwVD0DRJnn7o5Pb21 Y67kI9XxcBU+PGNvbCB3 pWY4pU7dJpPjUdG0 LEikS382IyKkaBTpHrin o4qgg5rxqEv8TcHaDYMi ktEryMneBOO6x6EiIm35 Y88mPHjmSORaYSAy HBXjLIUdoSvpwq6boK3o Ii8+VCOraQG5mKE3zS5k QhDhEaT5OGziH755IaUj qGTcRfadK77cT3Cr dXA+OLJjVup8LQEocIrf NK6viVSiDKelGj7eFUR7 UeCgNrQqAIpyM2GsPBAf cdkhbfpwpZB5YLRf HZRcdJ72Ra9osMkwBh7e WSZxJRP1JCUpcSGoD1Vv pZ8lYuBjQZRkFMYcI2Rf vRXgAYgmL793CIrz JrH0NPDbpqBqI0ZkYFBe lTnyFtR1v9T0Jl6GzOia sEPbVF4uJdSaRFs2P3Dg Kgu7GNInbXpjEU0z dGUdOVucFb7hmErkfXil EZ7aJEXmoofmv990QkGc p7yvHBHsxTXrONjjXOF7 X46qw5K2QOUoPIUq HTH8rOI8cH0ajEmgpaaw bGVmdDsgdmVydGljYWwt KNuvZ467QREcfBrpJkOZ Cfy0D3DuUwi1RVYt fVwbDT7vfIPaTTucDp9b mAkfyBtjFX3vYTJwquxp x437VgMar8llGFVjzUFk QNgtBRM4D65rg5Y8 MWSaMRIzFJX2cFS3fH3h bGlnbjogbGVmdDsgdmVy kJxzFHguWZiyE978TUGm dCerDl2ILcp4T9Sl Dwb7YDDtsKrcFR3hmAWp TMxfWw1srWcgfWbcXM1m DLZrcqslm518MwWqp1mj IDEwcHQgVGltZXM7 H74nz8D7MQHkJVPcTTJ1 aEN3qP3psDfcmuubvFUh dDsgdmVydGljYWwtYWxp B812VTIgyUmkVnFk eWVyOjwvdGQ+MW08oa63 G3KoLtztXkd3IIYqTRA4 vUO5gJ0bSVLzBQotg1Y6 tZP4Y4FbrzDyej6e b2x (more content not included)... [facility] Coding Summary HTMLBase 64 BbdoneonJOp5yLh+PGhl YWQ+LI8TTPHmK54nxXCu dK1WX6iZWT6EVWFIUCJA XF4CBO1lbFS5JQfhY5Qo biAv NissrAUsVP09OGq2CBC7 sJwdAAlotH5uwFOoS2m4 EtOdGI45sZ90RJwqZRVn GyL7XtOyrnygjASz T3buBkTswLZpJdf+PHRh YmxlIHdpZHRoPScxMDAl XwFknKcjFH4iBu7lSGXe LWNvbGxhcHNlOiBj n1rrRCHfJVrlFM8rnVdi J7ZjwGV3WVRzd2g0Gb37 dHI+TKNwSLX0cGxkVGom y607ViFxf8hmPAQ1 fKHnFHnsTPS4Z56vm6W5 WESpATEkCIE0iTC3kP1z bZrzqdbiP7ZxyJWsGjS2 YXK3gKVacR8ydYxl idkfxS8oUds+J75YCD4S ANEYNF5HDov3G8KuQnvw dHI+SG21LPKyAT08cETp yKGtl1idsFp7BaMa HZHeOOZ0vLtdRPswu9Ex KIXfR80vgFCho0Q6NATk uJyvwOQlTvWogMR9uS8n TBguekoom6drzoxe Qeiwt7gayf32uJ35P04b PLthJNQqQUC6TKQxSYPz bGgdbx8tbQ3vVh5+IDxj m2pdt2lfhVy0XiSt VGBfuyEjaDwoQUU2a7Im Fi47A7JvpDmqv4OsBsb2 rb35sJPod5B3mRK9UTre NVRciQ8eJYlxDuI1 HSTbJzMjzR64hJHtSIpx Ri0teLfzlUtyMF1zWTZy snsgLXFybZ5uZEKvzJJg oQrvMS4sDALzsxao s866QzBkMSQ5QIAcnWYu W9PzdC5aSnNvPYXwFAVx X3EugVDnTYjrZ547UPnp QrY1TQVlvrOfF3Lc QEOfzVpqKmA1x1Q9Pb4G q5JctgqpQYE2KMfgZBI8 BdN8XvSqQhM9M2GtGro9 XAFglBqtID5vO0Sn XSAfsdgcepuxdCD8NKOk GGBwbA42pEMeWCjmQr9i u4W0t407FFViFHWfiH40 Wx1pkQxkTXNfjPCO iJ2rwbanq0zneurhKsUr RWWwKNe3TPl7ANPwoQub TmRmRYK3GqF6AQY9pPJe jU2swSnxzaaymD7k Oyc+R33txB1dZPP0VZC1 gbsnRDLbulCwLM91ZJ24 I2HuBognaCCnqWX+PGRp ruMhuTwkPP6sCzBk k8eno6XuBRueE8MtNEKk GDxuCuw9EDHoCOB1jWB7 nN0fUEAdUZghy1C1xGN7 M0KeodQkyi4nf6uk EZYdDYgwY02nbUNsa9J3 YAQgbCY6CFDdmMjmQfPh gE18Vuk+RDNjyQejg0Ms Xqdqu8hsj4wbwXc3 IjMwJSIgdmFsaWduPSJ0 z1GkBw07U38uMFneLAVq OSFlKEXiXKIbrGvbbr8u tQ4qIp9+PGNvbCB3 aLO3fS6jHYTkOyK4KVqx B308NvXieIDiWdtuh6eu g6pesKa2ReYsSQAjheSr iPpeUEH3u6NmIe10 F85gCTdnNIBaRHHwUVKd MBNnkNnpcc7eyZ9wTr8+ BD6gk6zeef92dM36vDL+ GEAeWIS6rPtjTNkd MCMhhP1dFRlfZnI5VPHp WuFfsT80xVAxLZabXd5f cKvvsWytHR9jXGDrsahn l194LlLem9qeNBBb mWKoLWguQGC8W29zw0J2 SCQcTRNtTBB0fMY4tJ7x bGlnbjogbGVmdDsgdmVy eZvzKZkhIAdbT029 IHRvcDsnPlBhdGllbnQg DiZeYTs2Z3CqJfb3CBVe bYwuFU6dkILhIEhrPn3m yExhuFlrRZ9uNRLd unzid125McZge2deHKEr sYCkYBvuYJW6O54ye2R2 SIEpZEEhLLT7cTI1tA0u bGlnbjogbGVmdDsg igYnnSsgVPayVPleN589 IHRvcDsnPkJpcnRoIERh jZV9ZE19YD99jSKyy0D8 dWB1U8SeHBHgemxl zrupxIT1IFBeWXIulA12 Qr8eiBbwVs0bLDShFXH1 OFYaiCVoG4WiqT5hMjDh AVXeORUxC5NgaOEc RYkqM224DExoIfC5BQAi ijQjM3VwIEShuIymIjO1 q7H9Uq0UE1W3KY10KO45 vSZmb1M6eDZ6V4Ov LACcmkunqpixcZD3ESAf JJSysN66Jo4abLbdBw5a SFOoHIL2KALiqMKeA4Tb cW2oOlVcRSBvBWOv L2CwiXGsCTqwB595SLjv WsO7GWQmhpKsA6CdVUFf eHsxXmD1i3M9Gk2OVZy9 PN72YS07lMOry6S9 wFP0G5ZaBYOfmwdwovcj cUT0GLGrEDNiuG52Ic1l kSgaHe5bVGVyYLO2QIFe tNOlB2CppU5cXjLq BZUsUZPlO8OhqLEdNLmj M850GGvyGuS2LPUxmpCd M2TaUQTfjWyqLhK8f3H5 Un7AXDZsFR07ABF3 yDH0RC00IN89Q8PcPvug dGFibGU+PHRhYmxlIHdp ZHRoPScxMDAlJyBzdHls ZT3mSe4jVJAtLZPp fZceiVWkJwMfy9owAPVw PVraBJ8tiKzwY6EzsMJ5 TGMmu7c7Xr01U70qF6Qx dXA+ONYxnCP6eEH0 tM3sFdTtYsN6EVdlZ603 AlTdkDAiQiopu4buf8zv fRj8QaU0WTOyoeHhzJyf XSW4i5SgPk78D41m IHdpZHRoPSIxNSUiIHZh lFiayf7ljV0fOe4+PGNv uJR5fPC5zB1vHaPqRnB4 DNtuH570CeZqpAAo Dhxxv5lue8rhwGu5BrFn KNNgzwTtwLycYSL7s9Am Si58O6CguGwbe6XgTjp6 lc61tTJgl6C7kUJ3 E6NoIRHtapklrJZkvIiw ZJ1hVMReakdeCPLzjU2i ESGxB9g4PcTpFnQ0PXlp G9MfmgU0WYJzvWKa MMhmDNJ4Q28by7W7DMDp JPNtMQR1tQE6sA4ciOve bjogbGVmdDsgdmVydGlj RWelOYzaC295LRYd lVqiOLWvtR8yVUBesOIp yLkhQK5cNBKjuxhpZjSL C6XKO21SPXIHW5FOBcOp LIzUNK06G9AeZet9 HOXbdOfqXO7awUHgMCmx Ot0huLgzxMuxCP2mIPId zocsOGFizK2oPLLpkBHt kPtzGO3uQEUtlejc z955LqOjVFT5NGWotTRl F5ChaC5mCyRqOIPlXZVu Q7LwlCWcUUmrE395GVyw YzJ4JTTgbsXyF3Rf FCJgcOnbIsV0d7H1Vv3g EN3kJg7aLJM5VJ02HK93 rOHfs9H2dFC3Y3SnYBUi sscwgipdkMY0CWGp ZIQsuM34mMEcGTpeKi0w c0I3e654OUPtBOOicX48 Xo1upZzuONYbxQBUzV1i kujjt6zedykpMeDx YGFyWBv0RTu6DTTgrUfr PoTkRMR1FyW9LZA4cSPy rZ7ckDqzuzlleQ3xEga+ VNCyEIGimaZ5E4Tw Tve3ETSxwEoeHP7kmMSm BGyuGl8fhQmkgGpxIL9l TLQiueomYZKmaG4nZPTu gBWjhMpuZJ0zQKSv pdtjt363LsGmEDU4KUBz jPNwG6AyhG6qZeKnNFRj QJGcC0SudQGfKXdkZ981 OBwkBiJ9SZNoktIn L8AfTLCyjKwbNdH4x4D7 Sx7QGHbYSN58UT70vJEf i5A8vQF9F3QjSAQtcfxa wjsizLF3VTMvGSLe tH78lUJlECcdRg8fw3Y3 w024MLNdDVDeaW05Vt9k vGeiCKDdcRBAmW1aovsl j8bspeetViVdBRRp EVd5JSf9IYAbcBgcSkVe GGL4EbN5HJV2nJQhsB3y tBtibughcC0gShw+RW1l pkoaokL5QB43BJ96 U4FsLpeclUNewYJ+PHRh YmxlIHdpZHRoPScxMDAl CtGkyFzbCU7qVz5zSWLh LWNvbGxhcHNlOiBj b5llSWPiWSfiTV7unKar H1OriBT4KNVih2d2Ud60 M26fV3FdpYC+PGNvbCB3 yZU8nY3wPnIyLgZ8 ZQuyB250GaUhcUWvVivl l2ots6lirHs0MhRlXPKq xmXdxPruUHH2u7YrSt36 K34aWUqgFOWlRTFe YNGjPXNnhXufio0uuJ1u Ii8+VTMjeMC8sWQ6dM7e HsAcUhT1ZGqeI651YbDz aQRsAdvyE66yP9Un dXA+LVMdTol1CVKdwYjd VF7rrEAzXHeoNh0mUAA5 BpPwGeZaWQsdU6VfNMKm aecwnqkhcGC9PJQg UHVglB00Mq5blPjkIq9x ETSwRIH9QAZbmFJmO4Tx jR8gNoTbUBPkVEWpX1Mz yOLnHTizH219SUoy JvP3VYVkqfNzO1EhORBf pJfoYjD9r7S4Dr1KiNyx aDZxEJ4vUcIvEDv3D0Qp Xmp6XABqwZqbIL6t vMWyBBpjJi3waLhymHty HL0zHBMrjttsh307XiEi i0esZKYdmDOuYAwcFLL8 X75nd5P1GRXtJHPh HMK7uKC0gL6xfOfehrpc bGVmdDsgdmVydGljYWwt BPnmB269RTCzyRamGeGR Zkb4U3YuSdj2TXWw iQezPE4dpYCrKFaiHf3a qRbxkWeuEL5lGXPdassl d596RhTwg6kkVREcsKMv KUnpBPY8G52yz3T4 EDHiRVRkYAY1dAD8mU6a bGlnbjogbGVmdDsgdmVy zDytJAakFArhY511TNKx gDsmWv2QLwv8O0Nx Nnc6CCGywBrkWX2rrHRp IKolLo7crDgjqThzAO6c OHDyauwia311NmUot4ne IDEwcHQgVGltZXM7 X60ff8U5LDMiLIZiEYH1 qCU4nV6umFpwdgvcsYUb dDsgdmVydGljYWwtYWxp Y448PQWblDdqUzEk eWVyOjwvdGQ+ZE97rc62 U5KdYvblEzp6CZYeIEJ4 rTU0hR9tTEBgPXpcb7F2 tYO0P9QivmAjsq5t b2x (more content not included)... [facility] ED Clinical Summaryon 2020 ED Clinical Summary [facility] Emergency Department [address] [place] [address] [id number] ED Clinical Summary PERSON INFORMATION Name: ROSA EASTMAN Age: 55 Years Sex: MALE : 1965 MRN: Acct#: Visit Reason: Hand pain-swelling; RIGHT WRIST PAIN Arrival: 04/01/2021 19:05:43 Discharge: 04/01/2021 19:35:00 LOS: 000 00:30 Check In: 04/01/2021 19:05:43 Checkout:04/01/2021 19:35:00 Address: [address] [address] PCP: Provider, None PROVIDER INFORMATION Provider Role [...] Follow-Up: With: Address: When: Andrew Mckenzie DO [address] [place] [address] [id number] Within 3 to 5 days DIAGNOSIS: 1:Sprain of right wrist Patient Understands: Yes - Patient/family/careg iver verbalizes understanding of instructions given Comment: Normal [facility] ED Patient Summaryon 021 ED Patient Summary [facility] Emergency Department [address] [place] [address] [id number] PATIENT DISCHARGE INSTRUCTIONS Patient Information Name: ROSA EASTMAN Age: 55 Years Date of : 1965 Reason For Visit: Hand pain-swelling; RIGHT WRIST PAIN Arrival Time: 04/01/2021 19:05:43 Primary Care Physician: Provider, None Attending Physician: Medhat Hernandez MD Comment: Visit Diagnosis: Diagnoses This Visit Hand pain-swelling ([id number]) Sprain of right wrist (S63.501A) Prescription Information: If you have been given a prescription for narcotics, seek immediate medical attention if you have any difficulty breathing or any sudden status changes such as confusion and sleepiness. If you or anyone you know is experiencing suicidal thoughts, mental health, alcohol and/or drug addiction problems; contact the [facility] 02/06 Crisis Hotline -Text 1ZQZB to 871262. If you received any narcotics, sedation, or [...] documents With: Address: When: Andrew Mckenzie DO [address] [place] [address] Within 3 to 5 days Medication Information: The exam and treatment you received today in the [facility] Emergency Department were for an urgent problem and are not intended as complete care. It is important for you to follow up with a doctor, nurse practitioner, or physician?s nurses assistant for ongoing care. If your symptoms [...] we can reach you if necessary. [facility] Emergency Department has provided you with a complete list of medications post discharge. Please inform your senior sql dba/provider of your visit and for further instruction on these medications. Any specific questions regarding your chronic medications and dosages should be discussed with your primary care physician(s) and/or pharmacist. Medications to Continue That Have Not Changed Other Medications acetaminophen-hydroc odone (hydrocodone-acetami nophen 5 mg-325 mg ([place] 5)) 1 tab(s) Oral Every 6 hours [...] poor (more content not included)... Normal [facility] Vital Signs Date Time Vital Sign Value Performing Clinician Facility 12-28-2024 13:00-0500 Body height 172.7 cm Charmaine Lowe PA Work Phone: [facility] 12-28-2024 13:00-0500 Body mass index (BMI) [Ratio] 30.87 kg/m2 Charmaine Lowe PA Work Phone: [facility] 12-28-2024 13:00-0500 Body weight 92.08 kg Charmaine Lowe PA Work Phone: [facility] 12-28-2024 13:00-0500 Diastolic blood pressure 78 mm[Hg] Charmaine Lowe PA Work Phone: [facility] 12-28-2024 13:00-0500 Systolic blood pressure 132 mm[Hg] Charmaine Lowe PA Work Phone: [facility] 12-14-2024 14:15-0500 Body height 172.7 cm Hilario Small MD Work Phone: [facility] 12-14-2024 14:15-0500 Body mass index (BMI) [Ratio] 31.02 kg/m2 Hilario Small MD Work Phone: [facility] 12-14-2024 14:15-0500 Body weight 92.53 kg Hilario Small MD Work Phone: [facility] 12-14-2024 14:15-0500 Diastolic blood pressure 78 mm[Hg] Hilario Small MD Work Phone: [facility] 12-14-2024 14:15-0500 Heart rate 91 /min Hilario Small MD Work Phone: [facility] 12-14-2024 14:15-0500 Systolic blood pressure 136 mm[Hg] Hilario Small MD Work Phone: [facility] 09-06-2024 13:16-0400 Body height 172.7 cm Candida Sidhu PA Work Phone: [facility] 09-06-2024 13:16-0400 Body mass index (BMI) [Ratio] 32.54 kg/m2 Candida Sidhu PA Work Phone: [facility] 09-06-2024 13:16-0400 Body weight 97.07 kg Candida Sidhu PA Work Phone: [facility] 09-06-2024 13:16-0400 Diastolic blood pressure 80 mm[Hg] Candida Sidhu PA Work Phone: [facility] 09-06-2024 13:16-0400 Heart rate 59 /min Candida Sidhu PA Work Phone: [facility] 09-06-2024 13:16-0400 Respiratory rate 16 /min Candida Sidhu PA Work Phone: [facility] 09-06-2024 13:16-0400 SaO2% (BldA) [Mass fraction] 99 % Candida Sidhu PA Work Phone: [facility] 09-06-2024 13:16-0400 Systolic blood pressure 120 mm[Hg] Candida Sidhu PA Work Phone: [facility] 12-09-2023 15:33-0500 Body height 172.7 cm Hilario Small MD Work Phone: [facility] 12-09-2023 15:33-0500 Body mass index (BMI) [Ratio] 31.02 kg/m2 Hilario Small MD Work Phone: [facility] 12-09-2023 15:33-0500 Body weight 92.53 kg Hilario Small MD Work Phone: [facility] 12-09-2023 15:33-0500 Diastolic blood pressure 78 mm[Hg] Hilario Small MD Work Phone: [facility] 12-09-2023 15:33-0500 Heart rate 79 /min Hilario Small MD Work Phone: [facility] 12-09-2023 15:33-0500 Systolic blood pressure 130 mm[Hg] Hilario Small MD Work Phone: [employer] 02-20-2023 14:00-0400 Body height 172.72 cm Josué Evangelista Other [employer] Other 02-20-2023 14:00-0400 Body mass index (BMI) [Ratio] 32.08 kg/m2 Josué Evangelista Other [employer] Other 02-20-2023 14:00-0400 Body weight 95.71 kg Josué Evangelista Other [employer] Other 02-20-2023 14:00-0400 Diastolic blood pressure 80 mm[Hg] Josué Evangelista Other [employer] Other 02-20-2023 14:00-0400 Systolic blood pressure 130 mm[Hg] Josué Evangelista Other [facility] [employer] Other 01-22-2023 09:40-0400 Diastolic blood pressure 84 mm[Hg] DO Britt Rumschlag Work Phone: [facility] 01-22-2023 09:40-0400 Heart rate 70 /min DO Britt Rumschlag Work Phone: [facility] 01-22-2023 09:40-0400 Respiratory rate 16 /min DO Britt Rumschlag Work Phone: [facility] 01-22-2023 09:40-0400 SaO2% (BldA) [Mass fraction] 96 % DO Britt Rumschlag Work Phone: [facility] 01-22-2023 09:40-0400 Systolic blood pressure 136 mm[Hg] DO Britt Rumschlag Work Phone: [facility] 01-22-2023 08:47-0400 Body temperature 98 [degF] DO Britt Rumschlag Work Phone: [facility] 01-22-2023 08:12-0400 Inhaled oxygen flow rate 10 L/min DO Britt Rumschlag Work Phone: [facility] 01-22-2023 07:35-0400 Body height 172.72 cm DO Britt Rumschlag Work Phone: [facility] 01-22-2023 07:35-0400 Body mass index (BMI) [Ratio] 32.4 kg/m2 DO Britt Rumschlag Work Phone: [facility] 01-22-2023 07:35-0400 Body weight 96.8 kg DO Britt Rumschlag Work Phone: [facility] 03-13-2022 11:45-0400 Body height 172.72 cm Harvey Holt Other [employer] Other 03-13-2022 11:45-0400 Body mass index (BMI) [Ratio] 32.23 kg/m2 Harvey Holt Other [employer] Other 03-13-2022 11:45-0400 Body weight 96.16 kg Harvey Holt Other [employer] Other 01-14-2022 14:30-0500 Body height 172.72 cm Harvey Holt Other [employer] Other 01-14-2022 14:30-0500 Body mass index (BMI) [Ratio] 32.23 kg/m2 Harvey Holt Other [employer] Other 01-14-2022 14:30-0500 Body weight 96.16 kg Harvey Holt Other [employer] Other 09-19-2021 11:00-0500 Body height 172.72 cm Harvey Holt Other [employer] Other 09-19-2021 11:00-0500 Body mass index (BMI) [Ratio] 32.23 kg/m2 Harvey Holt Other [employer] Other 09-19-2021 11:00-0500 Body weight 96.16 kg Harvey Holt Other [employer] Other 09-19-2021 11:00-0500 Diastolic blood pressure 87 mm[Hg] Harvey Holt Other [employer] Other 09-19-2021 11:00-0500 Systolic blood pressure 130 mm[Hg] Harvey Holt Other [employer] Other Encounters Encounter Date Encounter Type Care Provider Facility Start: 01-25-2025 End: 01-25-2025 ambulatory MANI CARPENTER Not Available Start: 12-28-2024 End: 12-28-2024 Bamboo flowsheet Charmaine Lowe PA Work Phone: [facility] Start: 12-28-2024 End: 12-28-2024 Bamboo flowsheet Charmaine Lowe PA Work Phone: [facility] Start: 12-28-2024 End: 12-28-2024 Office outpatient visit 25 minutes Charmaine Lowe PA Work Phone: [facility] Comment on above: Radiculopathy, cervi alex region [...] MD Facility: [place] Start: 09-06-2024 End: 09-06-2024 Bamboo flowsheet Candida PUENTES Work Phone: [facility] [place] [address] [facility] Start: 09-06-2024 End: 09-06-2024 Bamboo flowsheet Candida PUENTES Work Phone: [facility] [place] [facility] Start: 09-06-2024 End: 09-06-2024 Office outpatient visit 15 minutes Candida PUENTES Work Phone: [facility] [place] [address] Comment on above: Balance [...] 12-09-2023 Office outpatient visit 15 minutes Hilario Small MD Work Phone: [facility] Comment on above: Benign localized pro static hyperplasia with lower urinary tract symptoms (LUTS) (Primary Dx) Start: 12-08-2023 End: 12-08-2023 ambulatory Richard Lezama MD Facility:[facility] [place] Start: 10-15-2023 End: 10-15-2023 ambulatory [facility] Start: 10-14-2023 End: 10-15-2023 ambulatory BRITT RUMSCHLAG [facility] Start: 03-04-2023 End: 03-05-[address] DOCTOR GARCIA Facility: Start: 02-28-2023 End: 02-28-2023 ambulatory Josué Evangelista Other [employer] Other Start: 02-28-2023 Telephone encounter Josué Evangelista [facility] Start: 02-20-2023 End: 02-20-2023 ambulatory Josué Evangelista Other [employer] Other Start: 02-20-2023 Postop follow up vis it related to original px Josué Evangelista [facility] Start: 01-22-2023 End: 01-22-2023 Admission to same day surgery center DO Britt Rumschlag Work Phone: [facility] [place] Start: 01-22-2023 End: 01-22-2023 ambulatory Josué Evangelista Facility:[facility] Start: 01-22-2023 End: 01-22-2023 ambulatory DO Britt Rumschlag Work Phone: [facility] Work Phone: Start: 01-13-2023 End: 01-13-2023 ambulatory Josué Evangelista Facility:[facility] Start: 01-13-2023 End: 01-13-2023 ambulatory DO Britt Rumschlag Work Phone: [facility] Work Phone: Start: 01-13-2023 End: 01-13-2023 Patient encounter procedure DO Britt Rumschlag Work Phone: [facility] Work Phone: Start: 12-06-2022 End: 12-06-2022 ambulatory Josué Adelaida Evangelista Facility:[facility] Start: 12-06-2022 End: 12-06-2022 Patient encounter procedure DO Britt Rumschlag Work Phone: [facility] [place] Work Phone: Start: 08-10-2022 End: 08-10-2022 ambulatory [facility] Facility: Start: 07-08-2022 End: 07-08-2022 ambulatory Candida Sidhu Facility:[facility] Start: 07-08-2022 End: 07-08-2022 Patient encounter procedure [facility] [address] Start: 06-21-2022 End: 06-21-2022 ambulatory Candida Sidhu Facility:[facility] Start: 06-21-2022 End: 06-21-2022 Patient encounter procedure [facility] [place] Start: 03-13-2022 End: 03-13-2022 ambulatory Harvey Holt Other [facility] [employer] Other Start: 03-13-2022 Office outpatient vi sit 15 minutes Harvey Holt [facility] Start: 01-14-2022 End: 01-14-2022 ambulatory Harvey Holt Other [facility] [employer] Other Start: 01-14-2022 Office outpatient vi sit 15 minutes Harvey Holt [facility] Start: 10-16-2021 Admission to [facility] Harvey Holt [facility] Start: 10-16-2021 End: 10-16-2021 ambulatory Harvey Holt Other [facility] [employer] Other Start: 09-19-2021 End: 09-19-2021 ambulatory Harvey Holt Other [facility] [employer] Other Start: 09-19-2021 Office outpatient ne w 45 minutes Harvey Holt [facility] Procedures Date Procedure Procedure [...] 02/01/2025 12:40 PM EDT Office Visit [facility] [address] [place] [address] Charmaine Castro PA [address] [place] [address] [facility] Start: 01-25-2025 End: 01-25-2025 Patient encounter procedure 01/25/2025 11:00 AM EDT Procedure Visit [facility] [address] [place] [id number] Mani Carpenter MD [address] [place], [place] [id number] [facility] Start: 12-28-2024 End: 12-28-2025 EMG 2 Extremities EMG 2 Extremities Neurology Routine Radiculopathy, cervical region Expected: 12/28/2024 (Approximate), Expires: 12/28/2025 [facility] Work Phone: Comment on above: Expected: 12/28/2024 (Approximate), Expires: 12/28/2025 Start: 12-28-2024 End: 12-28-2024 Patient encounter procedure [facility] Comment on above: Arrived Start: 12-14-2024 End: 12-14-2024 Patient encounter procedure 12/14/2024 2:15 PM EST Office Visit [facility] [address] [place] [address] [facility] [place] [address] Hilario Small MD [address] [place] [address] [facility] Start: 12-09-2024 Adult BMI Screening Adult BMI Screen ing [facility] Start: 12-09-2024 Tobacco Screening Tobacco Screening [facility] Start: 12-08-2024 End: 11-08-2025 Prostatic specific antigen, diagnostic Prostatic specific antigen, diagnostic Lab Routine Benign localized prostatic hyperplasia with lower urinary tract symptoms (LUTS) Expected: 12/08/2024 (Approximate), Expires: 11/08/2025 [facility] Work Phone: Comment on above: Expected: 12/08/2024 (Approximate), Expires: 11/08/2025 Start: 09-06-2024 End: 09-06-2024 Patient encounter procedure 09/06/2024 1:20 PM EDT Office Visit [facility] [address] [place] [id number] Candida Sidhu PA [address] [place] [address] [facility] Comment on above: Arrived Start: 07-11-2024 COVID-19 Vaccine () COVID-19 Vaccine ( season) [facility] Start: 07-11-2024 Influenza vaccination [facility] Start: 03-10-2024 Tobacco Counseling Tobacco Counselin g [facility] Start: 07-11-2023 COVID-19 Vaccine ( season) COVID-19 Vaccine () [facility] Start: 07-11-2023 Influenza vaccination Influenza Vacc ine [facility] Start: 01-22-2023 End: 01-22-2023 [facility] Start: 07-08-2022 [facility] head [facility] Start: 07-08-2022 End: 07-08-2022 Patient encounter procedure Departed Clinical [facility] [address] Start: 2017 Administration of varicella zoster vaccine Zoster (Shingles) Vaccine (1 of 2) [facility] Start: 1986 DTaP,Tdap and Td Vac cines (1 - Tdap) DTaP,Tdap and Td Vaccines (1 - Tdap) [facility] Start: 1985 Adult BMI Follow Up Plan Adult BMI Follow Up Plan [facility] Start: 1979 Depression Screening Depression Scre ening [facility] Start: 1965 Screening for malign ant neoplasm of colon [facility] Start: 1965 Tobacco Counseling Tobacco Counselin g [facility] Patient referral [facility] Work Phone: Immunizations Immunization Date Immunization Notes Care Provider Augustus villanueva 03-07-2021 COVID-19 mRNA, Comirnaty (Pfizer) [facility] 02-14-2021 COVID-19 mRNA, Comirnaty (Pfizer) [facility] 12-08-2020 influenza virus vaccine, unspecified formulation Candida PUENTES Work Phone: [facility] Healthcare Payers Date Payer Category Payer Unknown 2022 Medicaid [id number] 2022 Medicaid [id number] 1b [id number] 2022 Self-pay [id number] 1965 Unknown [id number] 2.16.84 [id number] 1965 Unknown [id number] 2.16.84 [id number] 1965 Unknown [id number] 2.16.8 [id number] 1965 Unknown [id number] 2.16.8 [id number] 1965 Unknown [id number] 2.16.8 40.1.568440.3.579.2.173 1967 Unknown [id number] 2.16. 840.1.637977.3.579.2.196 1967 Unknown [id number] 2.16. 840.1.285431.3.579.2.196 1967 Unknown [id number] 2.16. 840.1.064980.3.579.2.196 1967 Unknown [id number] 2.16. 840.1.522893.3.579.2. 1967 Unknown [id number] 2.16. 840.1.618568.3.579.2.196 1967 Unknown [id number] 2.16. 840.1.775634.3.579.2.196 1967 Unknown [id number] 2.16. 840.1.255194.3.579.2.196 1967 Unknown [id number] 2.16. 840.1.146257.3.579.2.196 1967 Unknown [id number] 2.16. 840.1.118093.3.579.2. 1967 Unknown [id number] 2.16.84 0.1.040079.3.579.2.1259 1967 Unknown [id number] 2.16.84 0.1.473255.3.579.2.1259 1967 Unknown [id number] 2.16.84 0.1.027692.3.579.2.1259 1967 Unknown [id number] 2.16.84 0.1.914484.3.579.2.1259 1959 Unknown [id number] 2.1 6.840.1.453914.19 Unknown [id number] 2.1 6.840.1.981812.19 Unknown [id number] 2.16.8 40.1.512661.3.579.2.531 Unknown [id number] 2.16.8 40.1.000563.3.579.2.531 Unknown [id number] 2.16.8 40.1.790686.3.579.2.531 Unknown [id number] 2.16.8 40.1.337978.3.579.2.531 Unknown [id number] 2.16.8 40.1.906718.3.579.2.531 Social History Date Type Detail Facility Start: 04-23-2024 End: 09-06-2024 Sex Assigned At [facility] [employer] Other Start: 10-16-2021 End: 01-22-2023 Tobacco smoking status DEIS Smoker (finding) [facility] Start: 1965 Sex Assigned At Male F [facility] Start: 09-10-2022 End: 04-23-2024 Tobacco smoking status DEIS Smokes tobacco daily [facility] History of tobacco use Cigarette Smoker [facility] Start: 04-23-2024 Tobacco use and exposure User of smokeless tobacco [facility] Start: 04-23-2024 End: 09-06-2024 Alcoholic beverage intake Current drinker of alcohol (finding) [facility] Start: 04-23-2024 End: 09-06-2024 History of Social function [facility] How often to you hav e a drink containing alcohol? Monthly or less [facility] How many standard drinks containing alcohol do you have on a typical day? 1 or 2 [facility] How often do you hav e 6 or more drinks on 1 occasion? Less than monthly [facility] Start: 1965 Sex assigned at Not on file [employer] [facility] Start: 09-10-2022 Tobacco use and exposure Smokeless tobacco non-user [facility] Start: 05-03-2021 Alcohol Comment OCCASIONAL [facility] [employer] [facility] Start: 07-12-2015 Sex Male (finding) [facility] [facility] Medical Equipment Procedure Code Equipment Code Equipment Origin al Text Equipment Identifier Dates BONE 7MM DUO FORTITUDE SERIES FDA Start: 10-16-2021 Spinal fixation plate, non-bioabsorbable ()[id number] FDA Start: 10-16-2021 Bone-screw inter nal spinal fixation system, non-sterile ()[id number] FDA Start: 10-16-2021 Bone-screw inter nal spinal fixation system, non-sterile ()[id number] FDA Start: 10-16-2021 BONE 7MM DUO FORTITUDE [...] the original note were not included. [address] [place] [address] [address] [facility] [id number] Patient: Rosa Eastman Date of : 1965 [...] 05/03/2021 Performed by Carlos Olmos MD at [facility] TONSILLECTOMY ULNAR NERVE REPAIR [...] for your understanding. documented in this encounter [facility] 12-09-2024 Miscellaneous Notes Contacted the Pt. To remind him to get his PSA drawn before his appt on Friday with MD Drew. No further questions at this time. documented in this encounter [facility] 12-09-2024 Telephone encounter Note Contacted the Pt. To remind him to get his PSA drawn before his appt on Friday with MD Drew. No further questions at this time. [facility] 09-06-2024 History of Presen t illness Narrative [...] Review Audit Reviewed by Sophy Hays MA (Plastic Maker) on 09/06/24 at 1323 Medication Order Taking? Sig Documenting Provider Last Dose Status cyclobenzaprine (Flexeril) 5 MG tablet [id number] Take 2 tablets (10 mg) by mouth at bedtime DELORIS Steele 09/01/24 2359 gabapentin (Neurontin) 100 MG capsule [id number] Take 100 mg by mouth in the morning and 100 mg before bedtime. Historical ProviderMD Active latanoprost (Xalatan) 0.005 % ophthalmic solution [id number] Administer 1 drop into both eyes at bedtime DELORIS Steele Active meclizine (Antivert) 25 MG tablet [id number] Take 25 mg by mouth 3 (three) times a day as needed for dizziness DELORIS Steele Active omeprazole (PriLOSEC) [address] capsule [id number] Take 40 mg by mouth in the morning. Take before meals. Do not crush or chew.. Historical ProviderMD Active rosuvastatin (Crestor) 10 MG tablet [id number] Take 10 mg by mouth Daily Historical [...] -admits weakness in hand and trouble with typist -finds himself dropping things -balance is good [...] triceps, wrist extensors, wrist extensors, wrist flexor, typist strength 5/5. LUE Strength deltoid, biceps, triceps, wrist extensors, wrist extensors, wrist flexor, typist strength 5/5. RLE Strength illopsoas, quadriceps, tibialis [...] EMG pending course documented in this encounter [facility] 12-09-2023 History of Presen t illness Narrative Images from the original note were not included. [address] [place] [id number] Patient: Rosa Eastman Date of : 1965 [...] 05/03/2021 Performed by Carlos Olmos MD at [facility] TONSILLECTOMY ULNAR NERVE REPAIR [...] for your understanding. 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 I will see him on an as-needed basis I think he has had a good outcome overall. [employer] Other 05-04-2022 Evaluation note* Encounter Date Diagnosis [...] Cervical spondylosis with myelopathy (ICD-10 - M47.12) [employer] Other 03-29-2022 NoteEducation Materials Neurology Paresthesia Paresthesia [...] or sweet foods. General instructions ? Take olvn-yhy-ysbzopa and prescription medicines only as told by [...] provider. Document Revised: 11/22/2019 Document Reviewed: 11/05/2018 [employer] Patient Education ? 2020 [employer] Orthopedics Cubital Tunnel Syndrome Cubital tunnel [...] Playing contact sports, (more content not included)...[facility] 01-14-2022 Evaluation note* Encounter Date Diagnosis [...] will see him on an as-needed basis. [employer] Other 11-10-2021 Evaluation note* Encounter Date Diagnosis [...] They understand and would like to proceed [employer] Other 09-27-2021 Note [id number]05-23-2021 NoteEducation Materials Orthopedics Wrist Sprain, Adult [...] health care provider. General instructions ? Take dxem-yzr-clxsbqy and prescription medicines only as told by [...] provider. Document Revised: 10/09/2018 Document Reviewed: 05/15/2017 [employer] Patient Education ? 2019 [employer] Wrist and Forearm Exercises Ask your health care provider which exercises are safe for you. Do exercises exactly as told by your health care provider and adjust them as directed. It is normal to feel mild stretching, pulling, tightness, or discomfort as you do these exercises. Stop right away if you feel sudden pain or your (more content not included)...[facility] noteNo InformationNortConem[facility] [employer] Other evaluation noteNo assessment information available [facility] Work Phone: Evaluation note* Diagnosis Balance problems- Primary Abnormality of gait Hyper reflexia Abnormal reflex Lightheadedness Dizziness and giddiness Lumbar back pain Lumbago GIRMA (obstructive sleep apnea) Obstructive sleep apnea (adult) (pediatric) Memory change Memory loss documented in this encounter [facility] HealthcareEvaluation note* Diagnosis Benign localized prostatic hyperplasia with lower urinary tract symptoms (LUTS)- Primary Benign localized prostatic hyperplasia with lower urinary tract symptoms (LUTS)- Primary documented in this encounter [facility] SystemEvaluation note* Diagnosis Benign localized prostatic hyperplasia with lower urinary tract symptoms (LUTS)- Primary documented in this [facility]* Diagnosis Radiculopathy, cervical region- Primary Brachial neuritis or radiculitis nos Memory change Memory loss GIRMA (obstructive sleep apnea) Obstructive sleep apnea (adult) (pediatric) Balance problems Abnormality of gait documented in this encounter [facility] HealthcareHistory general Narrative - Reported* Type Description Date Surgical History (R) carpal tunnel release Surgical History (R) Ulnar nerve release Surgical History tonsillectomy Hospitalization History See Above [place] [employer] Other Hospital Discharge instructions Additional Instructions [...] Any unusual redness or drainage contact [facility] Work Phone: InstructionsNot on filedocumented in this encounter [facility] SystemInstructionsNot on filedocumented in this encounter [facility] SystemInstructions* Attachments The following attachments cannot be sent through Care Everywhere. 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) Referral Organization [facility] urosurgery Referring Provider First Name Harvey Referring Provider Last Name Yanet Referring Provider Specialty Neurosurger y Referred Organization [facility] Referred Provider Mani Carpenter Referred Address [address] [facility],[place], [place],[address] Referred Provider Specialty Neurology Referral Priority Routine [...] section and content) DATE CREATED AUTHOR 02/16/2022 [facility] DATE CREATED AUTHOR AUTHOR'S ORGANIZ ATION 01/23/2023 [facility] DATE CREATED AUTHOR AUTHOR'S ORGANIZ ATION 03/08/2023 [facility] DATE CREATED AUTHOR AUTHOR'S ORGANIZ ATION 10/18/2023 [facility] DATE CREATED AUTHOR AUTHOR'S ORGANIZ ATION 09/18/2024 [facility] DATE CREATED AUTHOR AUTHOR'S ORGANIZ ATION 01/27/2025 [facility] Specialists EPIC REASON FOR VISIT (unrecogniz [...] Status: Active Member Role Status Dates Britt Coriejose ayamila , DO Primary Care Provider Active Team Status: Inactive Member Role Status Dates Britt Nicolajamilyamila , DO Primary Care Provider Active Josué Evangelista MD Attending Provider Active 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 Specialty Start Date End Date NicolaBritt sepulveda DO [address] [place] [address] PCP - General Family Medicine 11/10/23 Mani Carpenter MD [address] [place] [address] Referring Physician Neurology 11/10/23 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 Specialty Start Date End Date NicolaBritt sepulveda DO [address] [place] [address] PCP - General Family Medicine 11/10/23 Mani Carpenter MD [address] [place] [address] Referring Physician Neurology 11/10/23 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 Specialty Start Date End Date [facility] [address] [place], [place] PCP - General Family Medicine 05/03/21 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 Specialty Start Date End Date Services, [facility] [address] [place], [place] PCP - General Family Medicine 05/03/21 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 Specialty Start Date End Date [facility] [address], [place] PCP - General Family Medicine 05/03/21 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 Specialty Start Date End Date NicolaBritt sepulveda DO [address] [place] [address] PCP - General Family Medicine 11/10/23 Mani Carpenter MD [address] [place], [place] [id number] Referring Physician Neurology 11/10/23 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 Specialty Start Date End Date CorieBritt wall [address] [place] [address] PCP - General Family Medicine 11/10/23 Mani Carpenter MD [address] [facility] [place] [id number] Referring Physician Neurology 11/10/23 Goals (unrecognized section [...] BE BASED ON THE PRIMARY CLINICAL RECORDS. [employer] provides no warranty or guarantee of the accuracy or completeness of information in this document.
[2025-01-31 11:23] VITALS: BP 117/69; PULSE 84; TEMP 36.6; O2SAT 97
[2025-01-31 12:04] VITALS: PULSE 67; O2SAT 97
[2025-01-31 12:05] VITALS: BP 111/69
[2025-01-31] MEDS: 0.9 % SODIUM CHLORIDE 10 ML SYRINGE - SALINE FLUSH INJ (12:05)
[2025-01-31] MEDS: IOHEXOL 240 MG/ML - 10 ML VIAL 24 MG INJ (12:05)
[2025-01-31] MEDS: BUPIVACAINE HCL 0.25% PF 25 MG/10 ML VIAL INJ (12:05)
[2025-01-31] MEDS: LIDOCAINE HCL 2% 400 MG/20 ML MDV 5 ML INJ (12:06)
[2025-01-31] MEDS: METHYLPREDNISOLONE ACETATE 80 MG/ML VIAL INJ (12:06)
--- NOTE | 2025-01-31 12:06 | P.ON_ITS ---
Date of procedure: 01/31/25 Pre-op diagnosis: Pain due to lumbar stenosis with neurogenic claudication Post-op diagnosis: same as pre-op Procedure: Procedure: Right L4-5, L5-S1 transforaminal epidural steroid injection Medications: Bupivacaine 0.25% 2cc, lidocaine 2% 1cc, depomedrol 80mg The patient was seen and examined in the preoperative holding area.? Informed consent was obtained and placed on the chart.? Patient was brought to the medical procedure unit and placed in the prone position where a timeout was completed verifying the correct patient, procedure site, position, and planned special equipment using sterile aseptic technique.? Under direct fluoroscopic visualization a 25-gauge Quincke tipped spinal needle was advanced to the designated neural foramen where contrast dye was injected to show adequate spread.? The needle was inserted at level right L4-5. There was no evidence of vascular or adverse uptake.? Epidural spread was appreciated.? The above- mentioned injectate was then placed in a 1.5 mL aliquot preceded by negative aspiration.? The needle was removed. The needle was inserted and the procedure repeated at level right L5-S1.? The surgery site was covered.? Patient was taken to the postprocedural recovery area and monitored for an appropriate length of time before found suitable for discharge in the accompaniment of a responsible adult. Anesthesia: Local Surgeon: Richard Lezama Pathology: none sent Condition: stable Disposition: no change
[2025-01-31 12:07] VITALS: BP 103/67; PULSE 62; O2SAT 98
== END 2025-01-31 12:10 | disposition home or self-care (01) ==
LOC: SURGOUT 10:36
PROVIDERS: PCP Family Medicine; Visit Provider Anesthesiology
DX: M48.062 Spinal stenosis, lumbar region with neurogenic claudication (principal); M54.50 Low back pain, unspecified
CPT/HCPCS: 64483; 64484; J0665; J1010; Q9966

== ENCOUNTER 2025-02-10 12:56 | Outpatient (OUT) | payer MEDICAID, SELFPAY ==
--- NOTE | 2025-02-10 13:14 | P.CN_ITS ---
Consult Note: HPI Data of Consult Patient: known to practice within the last 3 years Requesting Physician: Wilma Bhardwaj NP Primary Care Provider: Britt Goodman Consult Narrative Reason for consult: right low back and leg pain Narrative: 59yom who presents for assessment. notes worsening pain in low back, right buttock, right leg. imaging consistent with stenosis at multiple levels of lumbar spine, including l4-5, l5-s1. has continued in a series of provider directed home exercises >6 weeks, without lasting benefit. continues using fl exeril, gabapentin, otc tylenol arthritis. cannot take NSAIDs due to GERD. denies adverse med side effects. recent right L4/5 L5/S1 TFESI providing >50% improvement ongoing in radicular pain and NC claudication. cc:: CC: Wilma Bhardwaj NP Review of Systems ROS Status of ROS 10 or more systems reviewed and unremark able except as noted in history and below Musculoskeletal Reports: back pain and joint pain PFSH [facility] Medical History (Updated 05/20/24 @ 11:19 by Wilma Bhardwaj NP) Glaucoma ?H40.9 - Unspecified glaucoma (ICD-10) Obesity ?E66.9 - Obesity, unspecified (ICD-10) Smoker ?F17.200 - Nicotine dependence, unspecified, uncomplicated (ICD-10) Low back pain ?M54.50 - Low back pain, unspecified (ICD-10) Neck pain ?M54.2 - Cervicalgia (ICD-10) Osteoarthritis ?M19.90 - Unspecified osteoarthritis, unspecified site (ICD-10) Bipolar depression ?F31.9 - Bipolar disorder, unspecified (ICD-10) Carpal tunnel syndrome ?G56.00 - Carpal tunnel syndrome, unspecified upper limb (ICD-10) Chronic GERD ?K21.9 - Gastro-esophageal reflux disease without esophagitis (ICD-10) Acid reflux ?K21.9 - Gastro-esophageal reflux disease without esophagitis (ICD-10) Sleep apnea ?G47.30 - Sleep apnea, unspecified (ICD-10) High cholesterol ?E78.00 - Pure hypercholesterolemia, unspecified (ICD-10) Surgical History H/O neck surgery ?Z98.890 - Other specified postprocedural states (ICD-10) H/O elbow surgery ?Z98.890 - Other specified postprocedural states (ICD-10) H/O carpal tunnel repair ?Z98.890 - Other specified postprocedural states (ICD-10) Hx of tonsillectomy ?Z90.89 - Acquired absence of other organs (ICD-10) H/O eye surgery ?Z98.890 - Other specified postprocedural states (ICD-10) Meds Home Medications and Allergies Home Medications ?Medication ?Instructions ?Recorded ?Confirmed ?Type epinephrine 0.3 mg/0.3 mL 0.3 mg IM DAILY PRN anaphylaxis 08/30/23 01/31/25 History injection, auto-injector latanoprost 0.005 % eye drops 1 drp ophthalmic (eye) .QHS 08/30/23 01/31/25 History omeprazole 40 mg capsule,delayed 40 mg PO QAM 08/30/23 01/31/25 History release rosuvastatin 5 mg tablet 5 mg PO DAILY 08/30/23 01/31/25 History cyclobenzaprine 5 mg tablet 5 mg PO DAILY 12/08/23 01/31/25 History gabapentin 100 mg capsule 100 mg PO DAILY 12/08/23 01/31/25 History famotidine 20 mg tablet mg 04/19/24 History Allergies Allergy/AdvReac Type Severity Reaction Status Date / Time bee venom protein (honey bee) Allergy Severe UNKNOWN Verified 01/31/25 11:22 Penicillins Allergy Severe LOSS OF Verified 01/31/25 11:22 CONCIOUSNESS Exam Constitutional Documenting provider has reviewed patient's vital signs: yes Common normals: no apparent distress, oriented x3, healthy appearing, alert and well nourished General appearance: cooperative [facility] Common normals: normocephalic, hearing grossly normal bilaterally and moist oral mucous membranes Head and scalp: normocephalic Eye Common normals: PERRL Pupil: PERRL Neck & C-Spine Common normals: full ROM General: normal visual inspection Chest Common normals: inspection of chest normal Respiratory Common normals: normal respiratory effort, no retractions and no use of accessory muscles Back & Pelvis Lumbar spine/lower back: ROM limited, pain with ROM and straight leg raise negative bilaterally Sacroiliac joints: SI joint(s) abnormal Other: right SIJ positive lakeisha(patricks), gaenslens, thigh thrust, compression test strength 5/5 in BLE Neuro Common normals: oriented x3, CN's II-XII intact bilaterally, moves all extremities, no focal motor deficits, no sensory deficits noted and deep tendon reflexes 2+ bilaterally Sensorium/orientation: alert Motor exam: strength 5/5 throughout and no movement abnormalities noted Psych Common normals: mental status grossly normal, thought process normal, cooperative, affect normal, speech normal and activity/motor behavior normal Speech: normal speech Thought process: normal thought process Results Additional Findings Additional findings: If on a controlled substance or opioids, I have checked an [place]AR[place] report on this patient and there are no aberrancies noted in the prescribing history.??If on a controlled substance or opioid a drug screen was completed and reviewed within the last year, and if there has not been a drug screen completed we ordered one today to monitor higher risk, state monitored pain medication use. As part of providing excellent, safe, comprehensive care, the following was completed at our patient's visit: 1. A medication reconciliation and review to ensure accurate knowledge of current/active medications, including asking our patients to inform us about any fapl-fgy-mzbtqec medications or herbal remedies/nutritional supplements/alternative remedies. 2. A review to specifically ensure our patients have had annual screening for screening for depression, screening for tobacco use, and screening for unhealthy alcohol use. For concerning screenings had a discussion with the patient, provided patient education, and recommended follow-up with primary care provider when appropriate. If patient noted with a risk of falling, they received education on strength, gait, and balance training to prevent future risk of falling. Portions of this note may have been carried over from the previous visit and updated as appropriate. Please note this office utilizes paper charting in addition to the electronic medical record. A list of current medications, vitals, and PMH is available there as the clinical staff outside of myself do not have access to [employer] charting during the clinic day operations. As part of providing quality comprehensive care the current medications, vitals, and PMH were reviewed in the paper chart. Assessment and Plan Assessment and Plan (1) Lumbar stenosis with neurogenic claudication: Assessment and Plan: 01/31/25 right L4-5 L5-S1 TFESI >50% improvement in radicular pain (2) Sacroiliitis: Assessment and Plan: The patient has had over 3 months of moderate to severe low back and SIJ pain with functional impairment and inadequate response to conservative care including NSAIDS (unless there are contraindication such as concurrent blood thinners), multiple oral or topical pain medications, and home exercise program/physical therapy.? Patient has completed >6 weeks of guided home exercise program and/or formal physical therapy program without relief of their symptoms.? The Oswestry Disability Index was completed, and the patient scored a 56%.? The patient noted the following:?? moderate to severe pain with ADLs, sitting, standing, walking, lifting, social life, and travel We discussed the risks and benefits of the procedure with the patient, and we are NOT planning on using sedation as outlined in the guidelines from Medicare unless there is a documented reason that sedation would be strongly recommended.?? ?The procedure will be completed with fluoroscopic guidance.? (3) Lumbar spondylosis: Plan repeat right SIJ injection, previous injection provided >50% improvement for 3 months but has since worn off increase gabapentin 200mg BID, risks vs benefits reviewed. pt to call for early refill due to increase in dose continue HEP as tolerated f/u 2 weeks after injection
== END 2025-02-10 12:57 | disposition home or self-care (01) ==
LOC: PM 12:56
PROVIDERS: PCP Family Medicine; Visit Provider Nurse Practitioner
DX: M48.062 Spinal stenosis, lumbar region with neurogenic claudication (principal); M46.1 Sacroiliitis, not elsewhere classified; M47.816 Spondylosis without myelopathy or radiculopathy, lumbar region
CPT/HCPCS: G0463

== ENCOUNTER 2025-02-28 10:51 | Day surgery (SDC) | payer MEDICAID, SELFPAY ==
--- OUTSIDE RECORDS SUMMARY | 2025-02-28 11:06 | XMS_ITS | CCD ---
Author Organization [facility] Care Team Providers Care 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ship Name Role Phone Harvey Holt Unavailable NON STAFF Primary Care Provider UnavailDAPHNEY Sotelo Attending Provider [phone] Rummassiellayamila, DO Britt Primary Care Provider Rumcoco, DO Britt Primary Care Provider MD Josué Evangelista Attending Provider Rex, DO Britt Primary Care Provider MD Josué Evangelista Attending Provider Candida Sidhu Admitting Unavailable Candida Sidhu Attending [...] Britt Primary Care Unavailable Josué Evangelista Unavailable [facility] Primary Care Unava ilable MITCHELL TRAYLOR Admitting Unavailable MERCEDES ENRIQUEZ Consulting Unavailable MITCHELL TRAYLOR Attending Unavailable MANI HARGROVE Consulting Unavailable MITCHELL TRAYLOR Consulting Unavailable MISC, DR GARCIAS Attending Unavailable MISC, DR GARCIAS Consulting Unavailable [facility] Primary Care Unava ilable RADHA, DR GARCIAS Admitting Unavailable RUMSCHLAG, BRITT Primary Care Unavailable YVONNE CAMARENA Referring Unavailable YVONNE CAMARENA Referring Unavailable BRITT PENALOZA Primary Care Unavailable CANDIS RENTERIA Admitting Unavailable CANDIS RENTERIA Attending Unavailable BRITT PENALOZA Primary Care Unavailable Britt Penaloza DO Primary Care Provider Mani Carpenter MD Unavailable [phone] [facility] Primary Care Provider CHARMAINE CASTRO Attending Unavailable MANI CARPENTER Attending Unavailable CHARMAINE CASTRO Attending Unavailable CANDIDA SIDHU Attending Unavailable CANDIDA SIDHU Attending Unavailable Giedraitis , Andrius Vytautas Attending Unavailable Giedraitis MD, Andrius Vytautas Attending Unavailable Giedraitis MD, Andrius Vytautas Attending Unavailable Giedraitis MD, Andrius Vytautas Attending Unavailable Giedraitis MD, Andrius Vytautas Attending Unavailable Giedraitis MD, Andrius Vytautas Attending Unavailable Giedraitis MD, Andrius Vytautas Attending Unavailable Allergies Allergy Classification Reported Allergen(s) Allergy Type Date of Onset Reaction(s) Facility (7 sources) penicillAMINE Drug Allergy Unknown [facility] Other (7 sources) Bee Sting Drug allergy Unknown [facility] Other (14 sources) Penicillins; Translations: [Penicillins] Allergy to substance 05-07-20 17 Unknown Reaction [facility] (5 sources) venom-honey bee; Translations: [venom-honey bee] Allergy to substance 10-02-20 21 Swelling [facility] (1 source) bee venom Drug allergy (disorder) [facility] (1 source) Penicillin Drug Allergy [facility] (3 sources) Bee Venom Protein [...] (3 sources) Nonsteroidal Anti-inflammatory Drug Start: 04-21-20 take 1 tablet by mouth twice daily [...] ulnar nerve, right upper limb] Onset: 04-23-2024 4 Chronic Other nervous system disorders (6 sources) [...] post void residualon 12-14-2024 Volume [address] [facility] [address] Prostate specific Ag [Mass/V ol]on 12-09-[address] [facility] Prostatic specific antigen, diagnosticon 12-09-2023 Prostate specific Ag [Mass/Vol] 1.02 ng/mL 0.00 - 4.00 ng/mL [facility] Comment on above: The method used for this test is Roxy [employer] DXI chemiluminescent immunoassay. Values obtained by different assay methods cannot be used interchangeably. H. pylori Antigenon 10-16-20 23 H. pylori Antigen Specimen Description .FECES Direct Exam NEGATIVE Report Status FINAL 10/16/2023 Normal [facility] Comment on above: Performed By: #### F HPY #### [facility] [address] [place] [address] Phone Specialist: Guy Ramey MD [facility] [address] [place] [address] Phone Specialist: Justus Darby MD Surgical Pathology Reporton 10-15-2023 Surgical Pathology Report (NOTE) Path Number: [id number] -- Diagnosis -- A. GE junction, endoscopic [...] for each. Microscopic examination performed. Processing Lab: [address] [id number] Interpretation Performed at [place] [id number] SURGICAL PATHOLOGY CONSULTATION Patient Name: ROSA EASTMAN [facility] Rec: [id number] [facility] ANATOMIC PATHOLOGY [address] [place] [address]. [place], [place] [address] Normal [facility] CBC with Diffon 10-14-2023 Abs. Basophil 0.17 k/uL Normal 0.00-0.20 [facility] Comment on above: Performed By: #### C DP #### [facility] [address] [place] [address] [place] [address] Phone Specialist: Justus Darby MD Abs.Imm.Granulocyte 0.04 k/uL Normal 0.00-0.30 [facility] Comment on above: Performed By: #### C DP #### [facility] [address] [place] [address] Phone Specialist: Justus Darby MD Abs.Neutrophil (Seg) 5.08 k/uL Normal 1.50-8.10 [facility] Comment on above: Performed By: #### C DP #### [facility] [address] [place], [facility]83 Phone Specialist: Justus Darby MD Basophils/100 WBC (Bld) 2 % Normal 0-2 [facility] Comment on above: Performed By: #### C DP #### [facility] [address] [place], [place] [address] Phone Specialist: Justus Darby MD Eosinophils (Bld) [#/Vol] 0.43 10*3/uL Normal 0.00-0.44 [facility] Comment on above: Performed By: #### C DP #### [address] [place] [address] Phone Specialist: Justus Darby MD Eosinophils/100 WBC (Bld) 4 % Normal 1-4 [facility] Comment on above: Performed By: #### C DP #### [address] [place], [facility]83 Phone Specialist: Justus Darby MD Erythrocyte distribution width (RBC) [Ratio] 12.3 % Normal 11.8-14.4 [facility] Comment on above: Performed By: #### C DP #### [address] [place], [place] [address] Phone Specialist: Justus Darby MD Hematocrit (Bld) [Volume fraction] 44.4 % Normal 40.7-50.3 [facility] Comment on above: Performed By: #### C DP #### [address] [place] [address] Phone Specialist: Justus Darby MD Hemoglobin (Bld) [Mass/Vol] 14.6 g/dL Normal 13.0-17.0 [facility] Comment on above: Performed By: #### C DP #### [facility] [address] [place], [place] [id number] Phone Specialist: Justus Darby MD Immature granulocytes/100 WBC (Bld) 0 % Normal 0 [facility] Comment on above: Performed By: #### C DP #### [facility] [address] [place], [place] [id number] Phone Specialist: Justus Darby MD Lymphocytes (Bld) [#/Vol] 3.86 10*3/uL High 1.10-3.70 [facility] Comment on above: Performed By: #### C DP #### [address] [place], [facility]83 Phone Specialist: Justus Darby MD Lymphocytes/100 WBC (Bld) 36 % Normal 24-43 [facility] Comment on above: Performed By: #### C DP #### [address] [place], [facility]83 Phone Specialist: Justus Darby MD MCH (RBC) [Entitic mass] 30.9 pg Normal 25.2-33.5 [facility] Comment on above: Performed By: #### C DP #### [address] [place], [place] [address]83 Phone Specialist: Justus Darby MD MCHC (RBC) [Mass/Vol] 32.9 g/dL Normal 28.4-34.8 [facility] Comment on above: Performed By: #### C DP #### [address] [place], [facility]83 Phone Specialist: Justus Darby MD MCV (RBC) [Entitic vol] 93.9 fL Normal 82.6-102.9 [facility] Comment on above: Performed By: #### C DP #### [address] [place], [place] [address]83 Phone Specialist: Justus Darby MD Monocytes (Bld) [#/Vol] 1.05 10*3/uL Normal 0.10-1.20 [facility] Comment on above: Performed By: #### C DP #### [facility] [address] [place], [place] [id number] Phone Specialist: Justus Darby MD Monocytes/100 WBC (Bld) 10 % Normal 3-12 [facility] Comment on above: Performed By: #### C DP #### [facility] [address] [place], [place] [address]83 Phone Specialist: Justus Darby MD Neutrophil (Seg) 48 % Normal 36-65 [facility] Comment on above: Performed By: #### C DP #### [facility] [address] [place], [place] [address] Phone Specialist: Justus Darby MD NRBC Automated 0.0 per 100 WBC Normal 0.0 [facility] Comment on above: Performed By: #### C DP #### [facility] [address] [place] [address] Phone Specialist: Justus Darby MD Platelet mean volume (Bld) [Entitic vol] 9.6 fL Normal 8.1-13.5 [facility] Comment on above: Performed By: #### C DP #### [facility] [address] [place] [address] [place] [address] Phone Specialist: Justus Darby MD Platelets (Bld) [#/Vol] 297 10*3/uL Normal 138-453 [facility] Comment on above: Performed By: #### C DP #### [facility] [address] [place], [place] [address]83 Phone Specialist: Justus Darby MD RBC (Bld) [#/Vol] 4.73 10*6/uL Normal 4.21-5.77 [facility] Comment on above: Performed By: #### C DP #### [facility] [address] [place], [place] [address]83 Phone Specialist: Justus Darby MD WBC (Bld) [#/Vol] 10.6 10*3/uL Normal 3.5-11.3 [facility] Comment on above: Performed By: #### C DP #### [facility] [address] [place], [place] [phone] Phone Specialist: Justus Darby MD Basic Metabolic Panelon 03-0 Anion gap [Moles/Vol] 9.8 mmol/L Normal 6.0-15.0 [facility] Comment on above: Performed By: #### C BC, BMP #### [address] Calcium [Mass/Vol] 9.1 mg/dL Normal 8.2-10.2 [facility] Comment on above: Result Comment: PERF ORMED BY: [place] [address] PATHOLOGIST [employer]NER [employer] GENEVIEVE CANNON M.D. Performed By: #### C BC, BMP #### [facility] [address] Chloride [Moles/Vol] 104 mmol/L Normal 95-114 [facility] Comment on above: Performed By: #### C BC, BMP #### [facility] [address] [place] [address] [place] CO2 [Moles/Vol] 25.9 mmol/L Normal 22.0-30.0 [facility] Comment on above: Performed By: #### C BC, BMP #### [facility] [address] [place] [address] [place] Creatinine [Mass/Vol] 0.98 mg/dL Normal 0.64-1.27 [facility] Comment on above: Performed By: #### C BC, BMP #### [facility] [address] [place] [address] [place] Estimated GFR ( Camila > 60 Normal [facility] Comment on above: Result Comment: GFR estimated reference range: According to KDOQI guidelines, <60 ml/min/1.73m2 is sufficient to diagnose a patient with chronic kidney disease. Performed By: #### C BC, BMP #### [facility] [address] Estimated GFR (Non- Am > 60 Normal [facility] Comment on above: Performed By: #### C BC, BMP #### [facility] [address] Glucose [Mass/Vol] 82 mg/dL Normal 70-100 [facility] Comment on above: Result Comment: [place] Glucose Reference Range is dependent on time and content of last meal. Glucose of more than 200 mg/dL in a nonstressed, ambulatory subject supports the diagnosis of Diabetes Mellitus. ADA recommended reference range Performed By: #### C BC, BMP #### [address] Potassium [Moles/Vol] 3.7 mmol/L Normal 3.5-5.1 [facility] Comment on above: Performed By: #### C BC, BMP #### [place] [address] [place] Sodium [Moles/Vol] 136 mmol/L Normal 136-146 [facility] Comment on above: Performed By: #### C BC, BMP #### [address] Urea nitrogen [Mass/Vol] 11 mg/dL Normal 9-23 [facility] Comment on above: Performed By: #### C BC, BMP #### [place] [address] [place] Basophils Auto (Bld) [#/Vol] Ordered By: Josué Evangelista on 01-13-2023 Basophils (Bld) [#/Vol] 0.1 10*3/uL 0.0-0.2 [facility] Basophils/100 WBC Auto (Bld) Ordered By: Josué Evangelista on 01-13-2023 Basophils/100 WBC (Bld) 1.2 % . F [facility] Calcium [Mass/volume] in Ser um or PlasmaOrdered By: Josué Evangelista on 01-13-2023 Calcium [Mass/Vol] 9.1 mg/dL 8.2-10.2 [facility] Carbon dioxide, total [Moles /volume] in Serum or PlasmaOrdered By: Josué Evangelista on 01-13-2023 CO2 [Moles/Vol] 25.9 mmol/L 22.0-30.0 [facility] Chloride [Moles/volume] in S lai or PlasmaOrdered By: Josué Evangelista on 01-13-2023 Chloride [Moles/Vol] 104 mmol/L 95-114 [facility] Complete Blood Count Auto Di ffon 01-13-2023 Basophils (Bld) [#/Vol] 0.1 10*3/uL Normal 0.0-0.2 [facility] Comment on above: Result Comment: PERF ORMED BY: [place] [address] PATHOLOGIST [employer] GENEVIEVE CANNON M.D. Performed By: #### C BC, BMP #### [address] Basophils/100 WBC (Bld) 1.2 % Normal . [facility] Comment on above: Performed By: #### C BC, BMP #### [address] Eosinophils (Bld) [#/Vol] 0.5 10*3/uL High 0.0-0.45 [facility] Comment on above: Performed By: #### C BC, BMP #### [address] Eosinophils/100 WBC (Bld) 4.7 % Normal . [facility] Comment on above: Performed By: #### C BC, BMP #### [address] Erythrocyte distribution width (RBC) [Ratio] 12.6 % Normal 12.0-14.8 [facility] Comment on above: Performed By: #### C BC, BMP #### [address] Hematocrit (Bld) [Volume fraction] 41.2 % Normal 38.8-50.0 [facility] Comment on above: Performed By: #### C BC, BMP #### [address] Hemoglobin (Bld) [Mass/Vol] 14.1 g/dL Normal 13.0-17.0 [facility] Comment on above: Performed By: #### C BC, BMP #### [address] Lymphocytes (Bld) [#/Vol] 3.4 10*3/uL Normal 1.00-4.8 [facility] Comment on above: Performed By: #### C BC, BMP #### [address] Lymphocytes/100 WBC (Bld) 33.3 % Normal . [facility] Comment on above: Performed By: #### C BC, BMP #### [address] MCH (RBC) [Entitic mass] 31.7 pg Normal 27.5-35.2 [facility] Comment on above: Performed By: #### C BC, BMP #### [address] MCV (RBC) [Entitic vol] 92.3 fL Normal 83.5-101 F [facility] Comment on above: Performed By: #### C BC, BMP #### [address] Mean Corpuscular HGB Conc 34.4 g/dL Normal 32.5-35.6 [facility] Comment on above: Performed By: #### C BC, BMP #### [address] Monocytes (Bld) [#/Vol] 1.0 10*3/uL High 0.0-0.8 [facility] Comment on above: Performed By: #### C BC, BMP #### [address] Monocytes/100 WBC (Bld) 10.1 % Normal . [facility] Comment on above: Performed By: #### C BC, BMP #### [facility] [address] Neutrophils (Bld) [#/Vol] 5.2 10*3/uL Normal 1.8-7.7 [facility] Comment on above: Performed By: #### C BC, BMP #### [facility] [address] Neutrophils/100 WBC (Bld) 50.7 % Normal . [facility] Comment on above: Performed By: #### C MICHELLE, BMP #### [facility] [address] NRBC% 0.1 /100{WBC} Normal 0-0.5 [facility] Comment on above: Performed By: #### C MICHELLE, BMP #### [facility] [address] Platelet mean volume (Bld) [Entitic vol] 7.8 fL Normal 6.6-10.1 [facility] Comment on above: Performed By: #### C MICHELLE, BMP #### [facility] [address] Platelets (Bld) [#/Vol] 268 10*3/uL Normal 150-450 [facility] Comment on above: Performed By: #### C MICHELLE, BMP #### [facility] [address] [place] [address] [place] RBC (Bld) [#/Vol] 4.46 10*6/uL Normal 3.90-5.60 [facility] Comment on above: Performed By: #### C BC, BMP #### [facility] [address] WBC (Bld) [#/Vol] 10.3 10*3/uL Normal 4.1-10.5 [facility] Comment on above: Performed By: #### C BC, BMP #### [facility] [address] Creatinine and Glomerular fi ltration rate.predicted panel (S/P/Bld)Ordered By: Josué Evangelista on 01-13-2023 Creatinine [Mass/Vol] 0.98 mg/dL 0.64-1.27 [facility] ECG 12 lead ECGon 01-13-2023 ECG 12 lead ECG [facility] [place] [address] [place] [id number] Electrocardiograph Report Signed Patient: Rosa Eastman MR#: [id number] : 1965 Acct:[id number] Age/Sex: 57 / M ADM Date: 01/13/23 Loc: Room: Type: [facility] Attending Dr: Josué Evangelista MD Ordering Provider: [...] was found Confirmed by MARYLIN EISENBERG MD ([facility]) on 01/14/2023 3:34:12 PM Referred By: DR EVANGELISTA Electronically Signed By:MARYLIN EISENBERG MD Transcribed By: MUS Signed By Marylin Eisenberg MD 0 01/14/23 1534 Normal [facility] Eosinophils Auto (Bld) [#/Vo l]Ordered By: Josué Evangelista on 01-13-2023 Eosinophils (Bld) [#/Vol] 0.5 10*3/uL 0.0-0.45 [facility] Eosinophils/100 WBC Auto (Bl d)Ordered By: Josué Evangelista on 01-13-2023 Eosinophils/100 WBC (Bld) 4.7 % . [facility] Erythrocyte distribution wid th Auto (RBC) [Ratio]Ordered By: Josué Evangelista on 01-13-2023 Erythrocyte distribution width (RBC) [Ratio] 12.6 % 12.0-14.8 [facility] Estimated glomerular filtrat ion rate (GFR) non- AmericanOrdered By: Josué Evangelista on 01-13-2023 GFR/1.73 sq M.predicted among non-blacks MDRD (S/P/Bld) [Vol rate/Area] > 60 mL/Min [facility] Glucose [Mass/volume] in Ser um or PlasmaOrdered By: Josué Evangelista on 01-13-2023 Glucose [Mass/Vol] 82 mg/dL 70-100 [facility] Comment on above: ADA recommended refe rence rangeRandom Glucose Reference Range is dependent on time and content of last meal. Glucose of more than 200 mg/dL in a nonstressed, ambulatory subject supports the diagnosis of Diabetes Mellitus. Hematocrit Auto (Bld) [Volum e fraction]Ordered By: Josué Evangelista on 01-13-2023 Hematocrit (Bld) [Volume fraction] 41.2 % 38.8-50.0 [facility] Hemoglobin [Mass/volume] in BloodOrdered By: Josué Evangelista on 01-13-2023 Hemoglobin (Bld) [Mass/Vol] 14.1 g/dL 13.0-17.0 [facility] Leukocytes [#/volume] correc lesly for nucleated erythrocytes in Blood by Automated counOrdered By: Josué Evangelista on 01-13-2023 WBC corrected for nucl RBC Auto (Bld) [#/Vol] 10.3 10*3/uL 4.1-10.5 [facility] Lymphocytes Auto (Bld) [#/Vo l]Ordered By: Josué Evangelista on 01-13-2023 Lymphocytes (Bld) [#/Vol] 3.4 10*3/uL 1.00-4.8 [facility] Lymphocytes/100 WBC Auto (Bl d)Ordered By: Josué Evangelista on 01-13-2023 Lymphocytes/100 WBC (Bld) 33.3 % . [facility] MCH Auto (RBC) [Entitic mass ]Ordered By: Josué Evangelista on 01-13-2023 MCH (RBC) [Entitic mass] 31.7 pg 27.5-35.2 [facility] MCHC Auto (RBC) [Mass/Vol]Or dered By: Josué Evangelista on 01-13-2023 MCHC (RBC) [Mass/Vol] 34.4 g/dL 32.5-35.6 [facility] MCV Auto (RBC) [Entitic vol] Ordered By: Josué Evangelista on 01-13-2023 MCV (RBC) [Entitic vol] 92.3 fL 83.5-101 F [facility] Monocytes Auto (Bld) [#/Vol] Ordered By: Josué Evangelista on 01-13-2023 Monocytes (Bld) [#/Vol] 1.0 10*3/uL 0.0-0.8 [facility] Monocytes/100 WBC Auto (Bld) Ordered By: Josué Evangelista on 01-13-2023 Monocytes/100 WBC (Bld) 10.1 % . F [facility] Neutrophils Auto (Bld) [#/Vo l]Ordered By: Josué Evangelista on 01-13-2023 Neutrophils (Bld) [#/Vol] 5.2 10*3/uL 1.8-7.7 [facility] Neutrophils/100 WBC Auto (Bl d)Ordered By: Josué Evangelista on 01-13-2023 Neutrophils/100 WBC (Bld) 50.7 % . [facility] No Panel InformationOrdered By: Josué Evangelista on 01-13-2023 Estimated GFR () > 60 mL/Min [facility] Comment on above: GFR estimated refere nce range: According to KDOQI guidelines, <60 ml/min/1.73m2 is sufficient to diagnose a patient with chronic kidney disease. Pharmacy Creatinine Clearance (Chem N/A [facility] Nucleated erythrocytes [Pres ence] in Blood by Automated countOrdered By: Josué Evangelista on 01-13-2023 Nucleated RBC Auto Ql (Bld) 0.1 /100{WBC} 0-0.5 [facility] Platelet mean volume Auto (B ld) [Entitic vol]Ordered By: Josué Evangelista on 01-13-2023 Platelet mean volume (Bld) [Entitic vol] 7.8 fL 6.6-10.1 [facility] Platelets Auto (Bld) [#/Vol] Ordered By: Josué Evangelista on 01-13-2023 Platelets (Bld) [#/Vol] 268 10*3/uL 150-450 [facility] Potassium [Moles/volume] in Serum or PlasmaOrdered By: Josué Evangelista on 01-13-2023 Potassium [Moles/Vol] 3.7 mmol/L 3.5-5.1 [facility] RBC Auto (Bld) [#/Vol]Ordere d By: Josué Evangelista on 01-13-2023 RBC (Bld) [#/Vol] 4.46 10*6/uL 3.90-5.60 [facility] Serum or plasma anion gap de terminationOrdered By: Josué Evangelista on 01-13-2023 Anion gap [Moles/Vol] 9.8 mmol/L 6.0-15.0 [facility] Sodium [Moles/volume] in Ser um or PlasmaOrdered By: Josué Evangelista on 01-13-2023 Sodium [Moles/Vol] 136 mmol/L 136-146 [facility] Urea nitrogen [Mass/volume] in Serum or PlasmaOrdered By: Josué Evangelista on 01-13-2023 Urea nitrogen [Mass/Vol] 11 mg/dL 9-23 [facility] WBC Auto (Bld) [#/Vol]Ordere d By: Josué Evangelista on 01-13-2023 WBC (Bld) [#/Vol] 10.3 10*3/uL 4.1-10.5 [facility] XR cerv spine AP/LAT/FLX/EXT on 12-06-2022 XR cerv spine AP/LAT/FLX/EXT [facility] [place] [address] XRay Report Signed Patient: Rosa Eastman MR#: [id number] : 1965 Acct:[id number] Age/Sex: 57 / M ADM Date: 12/06/22 Loc: XD Room: Type: [facility] Attending Dr: Josué Evangelista MD [...] Erasmo Maddox M.D.12/06/2022 2:26 PM Dictation Location: [place] [address] Transcribed By: [facility] 12/06/221425 Dictated By: Erasmo Maddox DO 12/06/221421 Signed By: 12/06/22 142 [facility] CBC AUTO DIFFon 08-10-2022 BASO # 0.2 103/ul Critically high 0.0-0.1 [facility] Comment on above: Performed By: #### C BC #### [facility] [address] [place] [address] Dr. Mars Sanders Basophils/100 WBC (Bld) 2.0 % Normal 0.2-2.0 [facility] Comment on above: Performed By: #### C BC #### [facility] [address] [place] [address] Dr. Mars Sanders EO # 0.5 103/ul Normal 0.0-0.7 [facility] Comment on above: Performed By: #### C BC #### [facility] [address] [place] [address] Dr. Mars Sanders Eosinophils/100 WBC (Bld) 5.7 % Normal 0.9-7.0 [facility] Comment on above: Performed By: #### C BC #### [facility] [address] [place] [address] Dr. Mars Sanders Erythrocyte distribution width (RBC) [Ratio] 12.4 % Normal 11.0-15.0 [facility] Comment on above: Performed By: #### C BC #### [facility] [address] [place] [address] Dr. Mars Sanders Hematocrit (Bld) [Volume fraction] 41.8 % Critically low 42.0-54.0 [facility] Comment on above: Performed By: #### C BC #### [facility] [address] [place] [address] Dr. Mars Sanders Hemoglobin (Bld) [Mass/Vol] 14.0 g/dL Normal 14.0-18.0 [facility] Comment on above: Performed By: #### C BC #### [facility] [address] [place] [address] Dr. Mars Sanders IG # 0.02 10e3/ul Normal 0.00-0.03 [facility] Comment on above: Performed By: #### C BC #### [facility] [address] [place] [address] Dr. Mars Sanders IG % 0.2 % Normal 0.0-0.5 [facility] Comment on above: Performed By: #### C BC #### [facility] [address] [place] [address] Dr. Mars Sanders LYMPH # 3.1 103/ul Normal 1.2-3.8 [facility] Comment on above: Performed By: #### C BC #### [facility] [address] [place] [address] Dr. Mars Sanders Lymphocytes/100 WBC (Bld) 36.3 % Normal 20.5-60.0 [facility] Comment on above: Performed By: #### C BC #### [facility] [address] [place] [address] Dr. Mars Sanders MANUAL DIFF REQ NO Normal [facility] Comment on above: Performed By: #### C BC #### [facility] [address] [place] [address] Dr. Mars Sanders MCH (RBC) [Entitic mass] 31.4 pg Normal 25.9-34.0 [facility] Comment on above: Performed By: #### C BC #### [facility] [address] [place] [address] Dr. Mars Sanders MCHC (RBC) [Mass/Vol] 33.5 g/dL Normal 29.9-35.2 [facility] Comment on above: Performed By: #### C BC #### [facility] [address] [place] [address] Dr. Mars Sanders MCV (RBC) [Entitic vol] 93.7 fL Normal 80.0-94.0 [facility] Comment on above: Performed By: #### C BC #### [facility] [address] [place] [address] Dr. Mars Sanders MONO # 0.8 103/ul Normal 0.3-0.8 [facility] Comment on above: Performed By: #### C BC #### [facility] [address] [place] [address] Dr. Mars Sanders Monocytes/100 WBC (Bld) 10.0 % Normal 1.7-12.0 [facility] Comment on above: Performed By: #### C BC #### [facility] [address] [place] [address] Dr. Mars Sanders NEUT # 3.9 103/ul Normal 1.4-6.5 [facility] Comment on above: Performed By: #### C BC #### [facility] [address] [place] [address] Dr. Mars Sanders Neutrophils/100 WBC (Bld) 45.8 % Normal 43.0-75.0 [facility] Comment on above: Performed By: #### C BC #### [facility] [address] [place] [address] Dr. Mars Sanders Platelet mean volume (Bld) [Entitic vol] 9.4 fL Critically low 9.5-13.5 [facility] Comment on above: Performed By: #### C BC #### [facility] [address] [place] [address] Dr. Mars Sanders PLT 251 103/ul Normal 150-450 [facility] Comment on above: Performed By: #### C BC #### [facility] [address] [address] [address] Mars Sanders RBC 4.46 106/ul Critically low 4.70-6.10 [facility] Comment on above: Performed By: #### C BC #### [facility] [address] [address] [address] Mars Sanders WBC 8.4 103/ul Normal 4.0-11.0 [facility] Comment on above: Performed By: #### C BC #### [facility] [address] [place] [address] Dr. Mars Sanders D-DIMERon 08-10-2022 D-DIMER 0.35 mg/L FEU Normal <=0.59 [facility] Comment on above: Performed By: #### D DIM #### [facility] [address] [place] [address] Dr. Mars Sanders D-DIMER COMMENTS SEE BELOW Normal [facility] Comment on above: Result Comment: Incr [...] hospitalization. Performed By: #### D DIM #### [facility] [address] [place] [address] Dr. Mars Sanders PROF 14(COMP METB)on 022 Albumin [Mass/Vol] 3.8 g/dL Normal 3.4-5.0 [facility] Comment on above: Performed By: #### H ALESSIO, CMP #### [facility] [address] [place] [address] Dr. Mars Sanders Albumin/Globulin [Mass ratio] 1.0 {ratio} Normal [facility] Comment on above: Performed By: #### H ALESSIO, CMP #### [facility] [address] [address] [address] Mars Sanders ALP [Catalytic activity/Vol] 127 U/L Critically high 46-116 [facility] Comment on above: Performed By: #### H STROPN, CMP #### [facility] [address] [address] [address] Mars Sanders ALT [Catalytic activity/Vol] 30 U/L Normal 16-63 [facility] Comment on above: Performed By: #### H STROPN, CMP #### [facility] [address] [address] [address] Mars Sanders Anion gap [Moles/Vol] 13.5 mmol/L Normal [facility] Comment on above: Performed By: #### H STROPN, CMP #### [facility] [address] [place] [address] Dr. Mars Sanders AST [Catalytic activity/Vol] 20 U/L Normal 15-37 [facility] Comment on above: Performed By: #### H STROPN, CMP #### [facility] [address] [address] [address] Mars Sanders Bilirubin [Mass/Vol] 0.3 mg/dL Normal 0.2-1.0 [facility] Comment on above: Performed By: #### H STROPN, CMP #### [facility] [address] [place] [address] Dr. Mars Sanders Calcium [Mass/Vol] 8.7 mg/dL Normal 8.5-10.1 [facility] Comment on above: Performed By: #### H STROPN, CMP #### [facility] [address] [address] [address] Mars Sanders Chloride [Moles/Vol] 105 mmol/L Normal 98-107 [facility] Comment on above: Performed By: #### H STROPN, CMP #### [facility] [address] [address] [address] Mars Sanders CO2 [Moles/Vol] 25.4 mmol/L Normal 21.0-32.0 [facility] Comment on above: Performed By: #### H STROPN, CMP #### [facility] [address] [address] [address] Mars Sanders Creatinine [Mass/Vol] 0.98 mg/dL Normal 0.70-1.30 [facility] Comment on above: Performed By: #### H STROPN, CMP #### [facility] [address] [address] [address] Mars Sanders EGFR-AF TUVALUAN >60 Normal >=60 [facility] Comment on above: Performed By: #### H STROPN, CMP #### [facility] [address] [address] [address] Mars Sanders EGFR-NON AF TUVALUAN >60 Normal >=60 [facility] Comment on above: Performed By: #### H STROPN, CMP #### [facility] [address] [address] [address] Mars Sanders Globulin (S) [Mass/Vol] 3.9 g/dL Normal [facility] Comment on above: Performed By: #### H STROPN, CMP #### [facility] [address] [address] [address] Mars Sanders Glucose [Mass/Vol] 102 mg/dL Normal 74-106 [facility] Comment on above: Performed By: #### H STROPN, CMP #### [facility] [address] [address] [address] Mars Sanders Potassium [Moles/Vol] 3.9 mmol/L Normal 3.5-5.1 [facility] Comment on above: Performed By: #### H STROPN, CMP #### [facility] [address] [address] [address] Mars Sanders Protein [Mass/Vol] 7.7 g/dL Normal 6.4-8.2 [facility] Comment on above: Performed By: #### H STROPN, CMP #### [facility] [address] [address] [address] Mars Sanders Sodium [Moles/Vol] 140 mmol/L Normal 136-145 [facility] Comment on above: Performed By: #### H STROPN, CMP #### [facility] [address] [place] [address] Dr. Mars Sanders Urea nitrogen [Mass/Vol] 14.0 mg/dL Normal 7.0-18.0 [facility] Comment on above: Performed By: #### H STROPN, CMP #### [facility] [address] [place] [address] Dr. Mars Sanders Urea nitrogen/Creatinine [Mass ratio] 14.3 mg/mg Normal [facility] Comment on above: Performed By: #### H STROPN, CMP #### [facility] [address] [place] [address] Dr. Mars Sanders PROTIMEon 08-10-2022 INR Coag (PPP) [Relative time] 0.95 {INR} Normal [facility] Comment on above: Performed By: #### P T, PTT #### [facility] [address] [place] [address] Dr. Mars Sanders INR GUIDELINES SEE BELOW Normal [facility] Comment on above: Result Comment: EDU RED INR: 2.0 - 3.0 CONDITIONS NOT LISTED BELOW 2.5 - 3.5 FOR PROSTHETIC HEART VALVE REPLACEMENT 2.5 - 3.5 RECURRENT THROMBOSIS Performed By: #### P T, PTT #### [facility] [address] [place] [address] Dr. Mars Sanders PT Coag (PPP) [Time] 10.3 s Normal 9.0-11.6 [facility] Comment on above: Performed By: #### P T, PTT #### [facility] [address] [place] [address] Dr. Mars Sanders PTTon 08-10-2022 aPTT Coag (Bld) [Time] 29.9 s Normal 22.3-36.2 [facility] Comment on above: Performed By: #### P T, PTT #### [facility] [address] [place] [address] Dr. Mars Sanders TROPONIN, HIGH SENSITIVITYon 08-10-2022 HSTROP 12.3 pg/mL Normal 4.0-76.1 [facility] Comment on above: Result Comment: CUT- OFF POINTS HAVE BEEN ESTABLISHED BASED ON THE FOURTH UNIVERSAL DEFINITIONS OF MYOCARDIAL INFARCTION. THE UPPER REFERENCE LIMIT (URL) OF TROPONIN, DEFINED THE 99TH PERCENTILE OF cTnI DISTRIBUTION IN A REFERENCE POPULATION, HAS BEEN CONFIRMED THE DECISION THRESHOLD FOR [place] DIAGNOSIS. Performed By: #### H ALESSIO, CMP #### [facility] [address] [address] [address] Mars Sanders XR CHEST 1 Von [...] by: MANI HARGROVE Date: 2022-08-10 18:59 Normal [facility] MR head/brain wo conon 07-08 MR head/brain wo con [facility] [place] [address] [place] [address] MRI Report Signed Patient: Rosa Eastman MR#: [id number] : 1965 Acct:[id number] Age/Sex: 57 / M ADM Date: 07/08/22 Loc: [facility] Room: Type: [facility] Attending Dr: Candida Alexander PA-C [...] Rob Funez M.D.07/08/2022 1:37 PM Dictation Location: [place] [address] Transcribed By: [facility] 07/08/22 133 Dictated By: Rob Funez II, MD 07/08/22 1333 Signed By: 07/08/22 1337 Normal [facility] Folate [Mass/volume] in Seru m or PlasmaOrdered By: Candida Alexander on 06-21-2022 Folate [Mass/Vol] 7.4 ng/mL >5.9 [facility] Comment on above: Folate reference ran ge: >5.9 ng/ml The WHO technical consultation on folate and vitamin b12 deficiencies has determined that folate concentrations less than 4 ng/ml are considered deficient. Free T4 (Free Thyroxine)on 0 06-21-2022 Free T4 [Mass/Vol] 0.77 ng/dL Normal 0.61-1.12 [facility] Comment on above: Performed By: #### V [id number], T4F, TSH3 #### [facility] [address] [place] [address] #### METH #### [facility] , Laboratory - Chemistry and C hemistry - challengeOrdered By: Candida Alexander on 06-21-2022 Cobalamin (Vitamin B12) [Mass/Vol] 369 pg/mL 180-914 [facility] Methylmalonic Acidon 022 Methylmalonic Acid 241 Normal 0-378 [facility] Comment on above: Result Comment: This test was developed and its performance characteristics determined by [facility]. It has not been cleared or approved by the Food and Drug Administration. Performed at: [facility] [id number] Phone Specialist: Millicent Calderon MD, Phone: [phone] PERFORMED BY: [place] [address] PATHOLOGIST [employer] GENEVIEVE CANNON M.D. Performed By: #### V [id number], T4F, TSH3 #### [facility] [address] [place] [address] #### METH #### [facility] , Serum or plasma methylmalona te measurement (moles/volume)Ordered By: Candida Alexander on 06-21-2022 Methylmalonate [Moles/Vol] 241 nmol/L 0-378 [facility] Comment on above: This test was develo ped and its performance characteristics determined by [facility]. It has not been cleared or approved by the Food and Drug Administration. Performed at: [facility] [id number] Phone Specialist: Millicent Calderon MD, Phone: [phone] TSH DL <= 0.005 mIU/L QnOrde red By: Candida Alexander on 06-21-2022 TSH Qn 2.46 m[IU]/L 0.45-5.33 [facility] Thyroid Stimulating Hormoneo n 06-21-2022 TSH Qn 2.46 m[IU]/L Normal 0.45-5.33 [facility] Comment on above: Result Comment: PERF ORMED BY: [place] [address] PATHOLOGIST [employer]E CANNON M.D. Performed By: #### V [id number], T4F, TSH3 #### [facility] [address] [place] [address] #### METH #### [facility] , Thyroxine (T4) free [Mass/vo lume] in Serum or PlasmaOrdered By: Candida Alexander on 06-21-2022 Free T4 [Mass/Vol] 0.77 ng/dL 0.61-1.12 [facility] Vit. B12/Folate Profileon Cobalamin (Vitamin B12) [Mass/Vol] 369 pg/mL Normal 180-914 [facility] Comment on above: Performed By: #### V [id number], T4F, TSH3 #### [facility] [address] [place] [address] [place] #### METH #### [facility] , Folate 7.4 ng/mL Normal >5.9 [facility] Comment on above: Result Comment: Rosa M te reference range: >5.9 ng/ml The WHO technical consultation on folate and vitamin b12 deficiencies has determined that folate concentrations less than 4 ng/ml are considered deficient. Performed By: #### V [id number], T4F, TSH3 #### [facility] [address] [place] [address] [place] #### METH #### [facility] , Coding Summaryon 02-13-2022 Coding Summary HTMLBase 64 EwnnjymjGFx5iFl+PGhl YWQ+NH3PNTDiT73ndLMb wV5OY7hMCE8JIBMOGRBK RX1VDG2ymBQ3REhuZ9Wx biAv UteksAXkAX02BDc4FUV6 pNevXQuloO3dpOElN8y8 ZxZvIJ30iZ25SBmgYZHt PeD7ZxXdxzduxTFv N9qhShXqwJLvNyd+PHRh YmxlIHdpZHRoPScxMDAl ViIjeGvvYD3oRh2kZZRr LWNvbGxhcHNlOiBj l7nyULGuHXhzJU3syGts H2PvcSE3JKSlk5k6Tp55 dHI+NIYfRVV2hBfmQEwo u857FbDur9ylISB2 fDFvQCtjGMV5T06iv7J6 UCHdYYMcRCP0uXZ4qN5j sVrpsuqeB5LobAZqGvQ0 KXZ4eMZbsW6poOtf qehbgC3hTdw+D05ZFA9C UJEGZF6JYmo4Z5CrQkoq dHI+QB41YOLtDY11mVCt xMHxx6dsdRl9XzIc MMGfOLL4dSlpQBrnm2Cw VXDaV49bzZFqb5D3XPOb tDhfmEEqJqXtjAI3wU1p GDnaosjdj1ynelmv Tjkdd5dkho26tI22F93p KZawAXUtGKL2WELkTRDq pGooop7sbI1oXg1+IDxj r5eze0ufeVm5MrHl HUShiuJatCexBPQ5j5Wq Lr32N6VuqMbqk4UrNzn5 xr01gVQcz7H3rQA8IGbh WIGenH3yFXfcGzC6 AWJgOtBspW33xIDaAKeh Nj3hrAdscIimMS8uRRIf bpfbOVEdmU6yNGIewTUw rLxbFB0wBDWzokmp q887JzYhIDS8JZSikRSm D5UydE2fMzGiGIGqOSNx U5BhiIDxJDdcH610PPle WpK1VOLjblYrI0Bb OEFsdCizZrF1p9W6Xc2M a3DozvzcOWY4KUsjKMU2 MoS4SvSbAkY5D1KxJoi0 RXPvmWjtKN0hQ3Dc MTYsogjcdjkyxYC9QDQn KIKpfZ17lPDoSBjuNt9q e4V3v175EBLqUCPflT32 Xt1cnUgwHMWuwXWT gK6jywzum9obquxvAyOn OKEoANa7NFv0TTSspYct YjLdPUY1RoU5TUM1hBLw gK1ptMoxranptX3t Oyc+B88gbO6gURV6CWK0 noxtSGBwmpCbPZ76FK62 G0VjPyvhfFXczUA+PGRp wpRcrFcaGN4eCeJx y7yjf2NnBDvaG7GdCSIi GYqoOkm6VRQnUHT6rAY2 gS9bUJAdIYmvn8T9uZV8 W0FivhKogs1cq2xb BLWdRAzrA58xgQVzd0W3 CFItqQD2XSGldLphXqLo iH34Xbh+UIFbtDyqs6Au Skdiy8fcz4ubmEt0 IjMwJSIgdmFsaWduPSJ0 m7SeIq95Q60oVNkgWGSn KBLnCLMoKRSukRxahz8r gX2iTq5+PGNvbCB3 yEU8uK4fECSjMiH5CHtp I808BoNvsMOuJmomn7rg s7rupHh7PvEkZGCmoaVg iSieVFH3z7SePn16 T05bVEhiYZFzFFAtCAGr QBRtwDzvkk6gzI0dDf5+ FF5mg0vhxq97gE38iBP+ OJBiCJB1gTyeXQne KDBohV6gZJkyTlE8KVGm HsXvfB27lYJqOJxxMq9x qLfecNcuSV5qNULadzdf l108GzGfb9zbHQNx hBXeXOmpIKD7I48qk4K5 WZSyHQWlVTQ5ePI5uC8j bGlnbjogbGVmdDsgdmVy rUvpRSzwKNfxX331 IHRvcDsnPlBhdGllbnQg DaQzHGp4M2TaCdu8JPSv xCizED5meRUlRSpuVw3l mEuhoFqgJA6rVRAr tiujo474QbCeg8wfOYDy qZYaUSqsTKN7P26zp3D9 LOHoVZEwEBW2xHH1vW1n bGlnbjogbGVmdDsg kzGwgEqyKXnvXMvrD307 IHRvcDsnPkJpcnRoIERh dKT4GX46KC14eQYnl8V6 vJA5L8PeGNBdqjpw dqhidKL4LIZkZXEyfS91 Yq7brEthDm6jISIjJCI2 NSJjrBQaE3GmqI1dVcQm OYWsPACmW6EjtXAf OXmvW768GTffPuY0LDAc isQnV2RbJEZuoGjdTzO1 i8K3Sh1LC7G8YU95KR95 pBIdg8D6fCH0N9Iv BWYbztcleucaqIN7IOWm AIEuhD33Iw5slOnwJv2w CZMgHUT4HVWsfPIoW9Bv kK5gPrYhIYDrSZJj I3VnwINnHJugD373FTbi KqK7ERYikqRxZ1NoWWUj kTffNbN7j2I2Fq7VMYr1 JC73KI80rCYvi6F3 cVM2M5FxYEZbfagunkkr jDV9EXQdCTBbyT74Di1o wVgeBb7fZGXiAJZ3OYCb rYVqM7RqaY0uRcRc ELLeFLKoS6CjoXSyHRvv K707TZrvAsA0AQZeemPb I8OtSIFzoVvkYeL0b6Y4 Ze8PCPAoKL69RUO8 nBC6LF72PJ99E3PxQjqd dGFibGU+PHRhYmxlIHdp ZHRoPScxMDAlJyBzdHls DD6pUc0qJGEzULKy aGcczMKaNiDmw1riCCHv UUjfJL3amEhmB9BkoLJ5 JEBrz9s4Nq14H33vW0Zs dXA+XJHtyZK5kBX4 cB1cBxRqNpA7BYteE132 HsAghFIgAompn9jwm7mp ySe0EsX3WRLufvEigUdx EVV5n2EiYi49H30o IHdpZHRoPSIxNSUiIHZh bSpcli2hfR1cBo4+PGNv vBA5tJR1yS6zTbNqTyK7 RPmxC673YhOrdRKw Tokgz0rjq9mydJl3AeYz QGQgolUcrNcvWBP0v4Dx Ad04N3IcyWkha2ThRwl5 qx02mWAyj6V4pJB6 J8OzXSDcfhcgbTFtaVlb JA8tSFSappmgIOJvtJ9u IWRsN1i0NjCbZjE6KJjr B1EtopV2JDOmeXHh RJscGOP8I10yt5V8VWWs WFWgDKK4dMC6bM3dhIun bjogbGVmdDsgdmVydGlj YJagVTieI655KHHn fXiuHIKfdR1yKLRgjQVc gBekTZ0lWIMcwnuuQmWQ P4RFY36SFJVZC3CSVmQb FUsNJJ00V1NrCvw6 MTKeiSxoRV1veLXlIEtl Wd2nmHjjaSttBS2sGTAh vqmzOSDbfH4fJOZcyWTr iPisPS2jCNSdtzls w980GcFsBVO0GDAdtQYj A4VdnL6pOjOyJKHtTDNa V8TvpJGpDGwcA899IKeg GvC3BGXmxqYeH2Di IXUbcFegNyZ4q5X5Li3n VC8nJl5jQUB1PX23NP53 hNBmz8V4tXX8I4BsFGAe ntedrbqsxKO0VUTj YLNueX35aZLkVRhkNw7g i6Q2n084IITsKIBelB42 Lv4ssGopNZWffMXWlF9l ycjwq4zcymrjUrLi KGHlSDx0IAt1FOUlfVhz CwQzLJA6BxG1YII9vMUq fL4tbGiecalnzI6dSda+ OLPlSDUkfsC0W9Ks Rhp5PTEuiZcpAF2mjBRl APnbEa1rsTxagTsdQN9m CUXadxizTCCgkG8mDAMn hOTslRhaNI9kANOx vvvik954YmUpMGL4RBUa oODaE9GziD8wFjLqBXQi IFRvC8IwcBCyXFppS539 MIsyHwN3EGVnfaHd Q0CxDNUidJyoWcO7l7S5 Oc8YEZxUVG75HD18sKEv t9R6xFZ8I0FySETyqafa hpumoZL3YGKbALUm aF77jFVeOBicOu0kw7B2 q386LYEvHIMtjO87Mq0e lAodSVWrfAGNyW0tjvvw d3njvehgKeDlBXTn YXt5YEc7APWsoFurZfVn UTA9SuF6APL6wWYkmN6i tPzlgjczpU4iSvr+T1A8 P3YrPbescMQ+PC90 NTImCG68gUJtpGCvs1og sHj1ThTzESStGBU2nXqi ZFnsp3ZzYAEfV56tnIIo p5J1YETkjQvwiEVi ZgKirVI2hA5gBIqrvpdv e5kkzdvqYjuct7mwop39 rM44Q99vUYxmIAEfAVSx KCLiKRBwdPlpqf3j lA5hZi0+SHRqvVN0qRC2 mO3xHjXqArG1EJuoP434 MwIejAQuKvvir5iiv4ru lSa3RbMnXZOhwhZg zXdsWFV6a3LfVk53A58e IHdpZHRoPSIyMCUiIHZh gNonkr0byU2eRp8+PC9j p2kvlw53vQ67lSI+ WFKpPEV1tDuqJKskCQHo gO3pVVyxKtK7QTAlApDe lT25qNVfTEjdHo2zkTdk aFtkIS5rSPDxdkgy g964QnVih8fhWGQdrBDo XWdwDLJ8U55dl8I7CDPs EBArYNX1sLL4qT3udBba bjogbGVmdDsgdmVy wOzgWMepZUahF734NECp oNirKeAzuKKgF9xakkOJ HA2fHuhzjPB+PHRkIHN0 fLzcJMliIVAqiO0k VEOjL8d6OkTaUyA2DHzj B6TnxhF4RAIjnEShCNTy pOSHbP7alraer4ludrhu MmUdZODqIRu1NSq2 SGQbvYwoZgPmJAB4IdF8 UTL8bPUxtR6sdNxndusu mJ5oRdb+RklOOjwvdGQ+ ALPpNGI4rTcrMYcb YLSgzR4jIHHkW9w9TsRc LfV0UKxfB2HyzkK2AVBb lPIvDIJceYBQrA9abmna f5ilgwwpWvTgKZGd UEo1CPj3ZYExfGhrKxQo STH2DxY3KHS9qFVhmZ6y oMrixnuxqN6cIoq+TVJO OjwvdGQ+PHRkIHN0 yLytRWonBZRbeZ8uIPZb A7b0MzJzAiC0MIkbW8Ji ysU9HKEaqXOkYETjxKMH dF8qasxjo3ctwfdn TqLmNHTeACc6IRq5ARVw rOpxDhYfYLK5TmU7SDK2 kJHmtM1ngPmefzepkO1h Oyc+BVS0LQS0QJ06 NB23H6SoLizftCUxyMY+ PHRhYmxlIHdpZHRoPScx WGHbMkGewXxcZG9lGx6x ZGVyLWNvbGxhcHNl OiB (more content not included)... [facility] Coding Summary HTMLBase 64 HiawenzpXFo2xNd+PGhl YWQ+LJ7FOZVvJ62akZVj cB8QO5iNXA0CIKEEHSDH IC9WKP1geFC0SFlqU4Dk biAv ZosgzLPeBC40LFn8JMM8 cLfwUOaaoS8tfVYhZ2g7 XsWpQR36gD64FLgiIKBq UxR2JeZavtqbuBTi D1rtMmEptLNzGhb+PHRh YmxlIHdpZHRoPScxMDAl LvKdgYmwEE4hBj8lDCUh LWNvbGxhcHNlOiBj b4myKULpEDlaBL4ojZjn L8MvuHG2UQCcq0f9Oy03 dHI+UWZbOQB7bKrqOSmp q585GcYek6ttCJA9 uOWhGLzkYGT4V79vt6Y1 DHGwQLCeMNH1mVW7bN0g iDrmjfqxS5ArsGIfHqF1 PRO9bVVxaI0faWzo sdmztH0jFvz+I34HPM1W WHQSVY9VFmw0I4TiFpit dHI+FG87NVTrWH04hTCk iEObs7afiBa6VfIk GEZsFJX9tYqqWQyhz7Iz XGKgO81vwUGau7K1VRTt xSmqlSVtPdAmoVE3mZ1d JEjsfguzk7fbcwuj Ebpoo5lyzd25vU90A78l WQhtMBHoMXD3MJBdEELj jQlqfn5vzZ7nGz2+IDxj d0wku9spdQn2DmJc ELMmwfYboFgnKMX3m8Am Ae85L6WflJizb8YyQma7 sm41oYBrt7P1hCO4HWrb SRPtjX8qVZqgPyE2 DWGuNoIlmG78sLSfXSgb Mv9jfYgzoVknVC2qLVIf gemaTGBzmW2pPRFhjVVg eNbpJE1iOETrwdoe g831MjRlKTZ1PIDkrCJw J0YczW7iKnMtJQDmPDZy D9BdvTGdILgeI139EUaz WtH3EZSnduVmX9Tc KZAclQxrFhO8h9W7Mv7J h3VyfdguHTJ4BIsdUER3 QyR9OxHuTcK6P5NfRnt2 NVBiyMpvJL9qY0Zz GSGciokcgcwgnDI4LVNr UJRtcO95yVDgNBqbWd2y d0B4d081AEJtGVJgpL98 Uu0xbNbdBFWlnLRM kM1huamxm9rdjmzuUrBy PQLsNSv8HRz7OLCltJbh EiNePAY4MfI5NBM1tYSj hX4dnVhnftoirO2t Oyc+E07gmG4cVFI4VDP5 qoruEAXatdZcIM07MH54 T6TxCshxtBZdqND+PGRp uyFyqRelQK5wAfMs s2ket4HeAZxnI0XpVHOm GFmsTcx9OGDmKNE6rTV9 gO6bHCGlVZpcd8K9tUE3 W2EzydAaey8se7au VRYfUHwrR86reJGmh8C0 RXGtwUK4BGGebLzrJdPm sF37Xgb+ALIpmQbik0Fe Hdaua1udt1dhrKb6 IjMwJSIgdmFsaWduPSJ0 h7QoKy98W99nPCwjGOJd ECYpICCdAKBssQiaop5p yE3yRe5+PGNvbCB3 lXB4bZ6bACSiFsC1PQwq E211GpSeiUOaIyqpr2ch a2ezeLx9LxQzCGPyzlNk eQzoHZG4l9MgQm14 A62aPRheUJOlUECgAJHr EGThkEhzke0bqW0oZe5+ OF5rf2cjur85aT20gBF+ CNDnKVF9yTccUWvj FFLnlN2aKLqeTeH7AALp EtPcvL42yHVnHWtyUe2x dDpegVdrWH4jIOUfabbe z400XzDtg8jaDCIc sFDgOAaiKQJ2U97sy3D5 KZSuXEFqTKR1fRM4jB5r bGlnbjogbGVmdDsgdmVy bUvhQVckOFdbF956 IHRvcDsnPlBhdGllbnQg JoFpWIp9X7EyKea7KYZt mCcaKM4fvAQmKZfgLh8x rVmtcDxaES6gWDPl dkqln342VoEpu9zeIBNu tDQlWDvoZLE0K95kx2V1 KJNcSVMxCFS4zOR3qJ8v bGlnbjogbGVmdDsg gfIvnDvgCAtwNHymN537 IHRvcDsnPkJpcnRoIERh cCW3OF36FM19lFGct9G1 eWW5O6TgKKJdxxet vrqhjKG7AIAsAJGlgR89 Mg6fiPjsMt5sUCKvMGF1 LIJqaOUzB6PbtF6fDhBf LZVjGYFiH3CwfLNi LEghL552WKenCgU5LFQz qvFqH0ImFTUdgIzaYdZ4 c2H4Rw4FA9V4QX19PO31 fMJjx1W4qEH7P0Ud BBRdzlyvsgafzWN0MMGs NGOkwM99Sj8gxSomIc4h GYYcCMK8STKxlCIiJ8Wi tA4vFtRjQVOaXWIv H6WfoEZvYKghW875XEin ZiT5JBSfdvFdX0DaSIRg vBawAnB8g3L4Jh9GCPq2 DW96OQ18dQNcq3R2 zXW4H1PuKTSvgpjzltsz tHE4VQLjOKYwkW28Uc2m hTwwDk2xJJCwWCM0JKWw pLMtK3DxgQ2fGrFu XTUhCKGxP9OweNRsSRcy W089SUhcHcQ8YNSgijSp H3HzKZTfdDfhSgK2y3H3 Dr9QWQQfVO89SKR1 cGE0ZB24PL11S6OkBtty dGFibGU+PHRhYmxlIHdp ZHRoPScxMDAlJyBzdHls KK1gDl8bTLBjPMXk oOifhIEoZpWvf4ajRKBe RZqgVO8yqHphP2HqtBW9 PAIld8z7Ey90V43yM3Px dXA+TFObpTB6kNF7 eP4iBkEhJwY9OOafH708 FvQiqSBmRikyc6tla9ey vWx6NtQ4ABGxxvFqiLci LSZ3j9QtSj78J69c IHdpZHRoPSIxNSUiIHZh sSezbm7dqA5fBh5+PGNv yMO3wAD5xT6fYgIcAeV6 KGedE099PcHemHAu Unvhs9daw4getMh2EnCu GJVooaHglRdbQZU0p5Br Ru21V3BjxCwjt0KhVzj8 em13vPWxy0R1eER9 R1MiQWRaemfdnXKqbQcz YZ1bOQNeqdcxOPAnjZ1f IZCwE3m0CrNdDpD7GQqh N8SgcgZ5XBYpvIIu ICnuIMB3B69sp4R0WMEk GKZkYYA3uDK3vU3fwQdu bjogbGVmdDsgdmVydGlj GDplHKjeS463QHWj kKnoOMNihI0dUMNgyDKi bZioKO1kCSVpzdgrFtWX P9SKA69BAALZU2WBRyDx ZXfGHV47T2SuLlo5 JDCipZhcQF9glHIcRGtl Zs4ddWhhjTznPN9sKCXs teghZTVvqE4gCNOjiXLg kZvbHJ1iLBKdypab g433PaFtHOT8ZOUixRBd F9RulI5tBeLpPVKvALZc A5NtcBSjUKleW446SHjm QlU5IZKyhmWrS9Xp IOWwwKudTcW2x9Z4Hc2v AB6tLa2kCGG2KF72ZP36 fMFri6H9pGM2J1QwUQWt quitduvzbPD8LYWk EFTxmA86iYCoYVwxGi4d l9E8k625PBLiYMKtmH64 Mi8idVqbVLGhzRTTcA1u nihng7idoyjzMhFw PSZjSCu1WIt0TLNeoRes JaExXWN5BrV0CSW2dUIh cK9poUhqezskwQ8dInf+ AEYrITEmjmJ9O2Tf Ecc3DPNzyYxfUB7uaHHi MUjfLu4dlFekgQbeGA6w BDSnujklLDHijW6ySQNe fVAngZfqYW7kKLPw ufwgm146AeNwCHL7INPk xQZiJ4BvdX2vCxOoSDGz UTLzE9GyjTUpULytZ562 ASrnDwV8FYSmkhWc Z1GkGMSazFuxDsP3z0D8 Uu0OCVcCHW83LU02qZIn i0J5fEM4H6YhLEZxregr knkmaBR1ZRJoGKDd fF80kZUmNElnAv4lg4Y8 x304XQFbKZDlcO33Fr2y gJbrYWQbnDYLrM1szdxn d9czyrbmVnKkIYIc DSh0OQj4PSVfnZhkZbKf JIQ8AjO9ARY5fQSjoV0y lHlebliacZ5cOhz+RW1l rkrlljW1SZ34AD41 W2QvNybuwLCjzBY+PHRh YmxlIHdpZHRoPScxMDAl BzNveKiuMR8lDn7pXNAm LWNvbGxhcHNlOiBj l6mqOMFaXNrdVP0oeSwg N1TslFR6TVMcy8c2Nm66 H87hI0FqmYG+PGNvbCB3 xUO5bJ5cMwKxSiY0 GXpvF373KgYbhQIxNxlm a5poc6otfNd6MdEmGPYk olZwrYqpQZD0z0GbTl92 B21vUGfjVKPeJPOd DRRtDHMqpHeaam3fcR4u Ii8+BRJbyLW2qNT3nX7m MaAfCrQ8JPfeR543LwJr hBNfLkozL04mP4Nm dXA+LBLyEio4YKArwCvz IB0mtPKxIRagBm1fSSH6 MyIyLmZhAEnvQ5SgUIEx fkvhdxufsGJ7OAMe BECrkZ62Tq7qkRwwGw4d EPMzFFB2EHMglQGtP2Zq oN4wArIcLLHpBUTcG2Cv zEJqUBysK055DWjf RnL4ZOYobwEaS4StSHSy lAgqWxF9g2T5Wk3EfNaq iXGhBO1jTfQyMLr5K4Yo Sqx0NERogPxdQM7e wJOhQMslPq7ehPnqyKvz UR8eVTKchdwpn089YnOq z8zeNNVkrCYvLOiqHAH3 D70wz5V6TSMzQQIb CZE4nWL1oQ7adRjhkhxk bGVmdDsgdmVydGljYWwt XPwsL819ULZffLqhNqXD Gft9T6ToUox9NMJe fAngVU4fxEAtELpyYr7c gCxerCgbPA0hNMJpbajm t116DsRms2mqFVNllRYl RPwzXFY0X60ov4N0 FOCsVZAlVFY3kTJ1xR6a bGlnbjogbGVmdDsgdmVy cStjWYymHSrmG473NTWj eGgdOq5ERxq9Y3Dg Vke4HPIplQruEB9ypRVy UOtbPa5eiXbepGjjQD3d IXLsfdhrd637RjUlk0nn IDEwcHQgVGltZXM7 F61cu6M5NHQzJPViMPA0 yBI9cJ7htXoizjlcvJZr dDsgdmVydGljYWwtYWxp E635UTZrsFauCiVo eWVyOjwvdGQ+TD59ah09 F9PoRgclDca4XXItEQA4 iMU4fI7qSSDxPFrew9C7 mOF1L6HlcvCskr5k b2x (more content not included)... Normal [facility] ED Clinical Summaryon 2021 ED Clinical Summary [facility] - Emergency Department [address] [place] [address] [id number] ED Clinical Summary PERSON INFORMATION Name: ROSA EASTMAN Age: 56 Years Sex: MALE : 1965 MRN: Acct#: Visit Reason: Hand pain-swelling; RT HAND SWELLING/NUMBNESS AND TINGLING Arrival: 02/05/2022 14:13:58 Discharge: 02/05/2022 15:08:00 LOS: 000 00:55 Check In: 02/05/2022 14:13:58 Checkout:02/05/2022 15:08:00 Address: [address] [facility] [address] PCP: Britt Penaloza DO PROVIDER INFORMATION Provider [...] Follow-Up: With: Address: When: Andrew Mckenzie DO [address] [place], [place] [id number] Within 3 to 5 days Comments: Diagnosis [...] for reevaluation. Prescription is electronically sent to [facility]. Return to the emergency department for worsening symptoms or concerns, acute shortness of breath, chest pain, abdominal pain, nausea or vomiting, or any questions. DIAGNOSIS: 1:Cubital tunnel syndrome on right; 2:Paresthesia of hand Patient Understands: Yes - Patient/family/careg iver verbalizes understanding of instructions given Comment: [facility] ED Note-Nursingon 02-05-2022 ED Note-Nursing Pt presents to the ED with right hand numbness and tingling that started Friday. Pt also states swelling, none seen at this time. Pt states a hx of surgery to his right Arm for a pinched nerve 3 years ago. Normal [facility] ED Patient Summaryon 022 ED Patient Summary [facility] - Emergency Department [address] [place] [address] PATIENT DISCHARGE INSTRUCTIONS Patient Information Name: ROSA EASTMAN Age: 56 Years Date of : 1965 Reason For Visit: Hand pain-swelling; RT HAND SWELLING/NUMBNESS AND TINGLING Arrival Time: 02/05/2022 14:13:58 Primary Care Physician: Britt Penaloza DO Attending Physician: Lennie Wilcox MD Comment: Visit Diagnosis: Diagnoses This Visit Cubital tunnel syndrome on right (G56.21) Hand pain-swelling ([id number]) Paresthesia of hand (R20.2) Prescription Information: If you have been given a prescription for narcotics, seek immediate medical attention if you have any difficulty breathing or any sudden status changes such as confusion and sleepiness. If you or anyone you know is experiencing suicidal thoughts, mental health, alcohol and/or drug addiction problems; contact the [facility] 02/06 Crisis Hotline -Text 4QLBL po [phone]. If you received any narcotics, sedation, or [...] documents With: Address: When: Andrew Mckenzie DO [address] [place] [address] [place] [address] Within 3 to 5 days Comments: Diagnosis [...] for reevaluation. Prescription is electronically sent to [facility]. Return to the emergency department for worsening symptoms or concerns, acute shortness of breath, chest pain, abdominal pain, nausea or vomiting, or any questions. Medication Information: The exam and treatment you received today in the [facility] Emergency Department were for an urgent problem and are not intended as complete care. It is important for you to follow up with a doctor, nurse practitioner, or physician?s diploma dental assistant for ongoing care. If your symptoms [...] so we can reach you if necessary. [facility] Emergency Department has provided you with a complete list of medications post discharge. Please inform your manager labor delivery/provider of your visit and for further instruction on these medications. Any specific questions regarding your chronic medications and dosages should be discussed with your primary care physician(s) and/or pharmacist. New Medications [facility] [facility], [address] [place], [place] [id number], [phone] predniSONE (predniSONE 20 mg oral tablet) 2 tab(s) Oral every day for 5 Days. Refills: 0. Additional medications on your home medication list not specifically addressed. Please contact the ordering physician if you have questions about these medications. acetaminophen-hydroc odone (hydrocodone-acetami nophen 5 mg-325 mg ([place] 5)) 1 tab(s) Oral Every 6 hours as needed as needed for pain. latanoprost ophthalmic (latanoprost 0.005% ophthalmic solution) 1 Drops Ophthalmic once a day (at bedtime). both eyes. Visit Information Allergies: Substance Reaction Symptoms Type Comments Bee Stings Drug penicillins Drug Vi (more content not included)... [facility] Provider Orderson 10-18-2021 Provider Orders [id number] #[id number] [facility] Coding Summaryon 10-15-2021 Coding Summary HTMLBase 64 TmxxhsdaENf0zYl+PGhl YWQ+OT8HZCTuC24roESe eI1EP0iKNM0BBFDGKPVZ RV4FWS3tcEZ2HVpsH4Xs biAv CkobtKRuRB33BXg8GGE9 mAejPJruuS3oxRNyL7w2 KqQmZI12nS90TGesKEBm SwB9SxLpeqtsmKRz D0feElFejYVyIzq+PHRh YmxlIHdpZHRoPScxMDAl SrHqxEhhSY2fVg1lCSKq LWNvbGxhcHNlOiBj a3aoVOUjWKhtTK1xdBdw T6DdfWI8NZOdz7c7Jw08 dHI+TEIfVMK1yZdhGSux w610FaGaj0guMON2 tQDcVSrgQGH8R31zq1R1 PKOiXMNuCLV8iIR0aS1y eTknqvisX8HodXXzKxX1 FUR0vGTzsV2caCcb elrdgS5zYtg+C65DBC8C MVXZBH4JHno4E4IzVjjp dHI+LY91QGTtMV80gLCx gFIuc9iufOp9FtGn UPZfVIC7zTrgKNniw4Vb RAGeY10vmNGgy4C1PYUg xQqggZCmNyLpdLD6eT0b CJkvhlmdu2yugajs Jnvpd3nsmk31oW34I39k MLbkXSGnWTD8UEIiISNw sMsrnz0caX0iQt3+IDxj v2dld3zsoVk3TmKx AIHxidMblAatTVH4p7Cn Rp41E9AujPksx6UhNvw1 bd49zPTtc2G0dWC6EZoi BIDqbS3iOZrpNtI7 HAVoWgVrnY18vOJxCFsq Ts2tgPzmdUlfEK8qQQMr deecMKZmlL5bMXWzsHAd jQugWK2dVJRyjjkj r244YnAoZPC3USVcmVSo C0QluX3iSzZyKXJtPQGc T5PqyKWqJSnzF455RIpc ChD8VDQoimOfC1Fr HREwlQksYbT0u1B9Fg9O i8AfkvciVVW8FVdyUBFp NoA9YvFvLrA0L2DzPfm9 ELMwsRltKH0hJ8Qd EUYynqmntijarIP4HGZq ZPNinR32lOVfTSvvHi5y i9S1h145GMRlGHUfkM32 Ty7psLhvFOSrmEZF zD9tlbazf6fagjdqZrEo PAHdNQa4PNe0NGLgnLuf MmGbTYK5TrB3CCY3xRUt pL8eaVdrlljqvJ1b Oyc+M25ghL9jPDR5KYK6 kuzrXCZlkwJcES49YA69 H4FcZscteXDqnCA+PGRp wvIaaUrwFD6yXtDd g3nww1UoAEwqW5BwUVLn NRnvLlm8TXRvPWQ4tWL0 pA8mJQMkLLbgj9H8sLF5 E5SzfgBbpv6uu0nb TOXsDMtkO34xmRCgq6L6 JJMsiXN9WZVzlTwsAyPf iM68Qmf+NOHcvIcyy4Xe Pynqm0jmn8bjuPn8 IjMwJSIgdmFsaWduPSJ0 k0ArHh49K23yUWvuATXv ZNQfLZIsUSJglJgcqo3i sH9zVy3+PGNvbCB3 vIZ2eP9aCCUlEnX4KDfb F452VhVpqWTqOwixj8xa g7exbJw4FqFcWAFozmKy vNaqBVR2f7CqPh67 G37lFEmiUDFtULIuXKXv JVNfyCyulq8ycC2mAa5+ TT1hv2kasx05lO41pAH+ TDRgVEM3oFrqWKfd BPXreB4tRZffApR7EWEv OiZbuX21yDUrOIwbLf2m rLxtjYlaAL6uBTYvtxau k287XkWla7wiGKHa yIDzPSdsXAG8D38wf9H9 UAQaLDKgUZS2nVH2aZ2d bGlnbjogbGVmdDsgdmVy rEjlJUppVOpfE661 IHRvcDsnPlBhdGllbnQg FuTcDDm6K7UfZbz4AFAb zFxfIS7jgBPkRHqpQa4b aEutjItuNS8rAVSr becqt597WwZoj6xyTCTn mANdOBgwHZQ1O48vo5P2 VXKhTEJzSHW1mAE4bN7t bGlnbjogbGVmdDsg qnOarJwpXUcpHRvxO723 IHRvcDsnPkJpcnRoIERh qVH6GG84AF92tNOon0G6 eJT8D4UpCOFqjhbu uawsyVW6PYHkHAQkwX32 Td2buXiwDl6uQDCsDFP6 IRHtjSPjS3RqjS8iCqXl LCXjVBCyH7IenSPv YOldV175FIgwArU9QBUs gpRqC6TkVLUhtHhtVcG9 s2K9Yu1HN0U5NU85TN63 kSQll9W8bAJ8J6Aq NZMuvfohcrlvbIP9CWSo ORLbcH96Rn4quLkiSd1w HGUjJWC7LSEhuDMiW0Lc bY3dUgDaMCOrLCZz S6EpmQLyAVglQ080TCko QlL2XRIodtWvS7QxLWJv iQubRzR9y8P5Wk7ZCDb4 AK73EX66nQZjm0Z5 wAY7X9KbXUGujrlukkax yFE1TZPaXUOzuS96Oj3m mQciZo3tIYLqJUG3QGUh lZJgM5RtxK2cTbAp UHJtTHGiE9GpuIIyNDhm W778QQetZpX4JQTzbwOr N1DdUFXioDlpTsW4b2W7 Uq2DMXYcCW91GQP6 dYX8SE54KF79T1TcRkpv dGFibGU+PHRhYmxlIHdp ZHRoPScxMDAlJyBzdHls FR2cXm0fDWIdXOPh aQfhjAJsIkBco6rmLHNi CGwxLK8gcReuQ3JhwJC2 POEvd8c2Tk09R59jY2Je dXA+WABstAS9sII4 uL2kFbZaKvC2JLmiP257 GpRprUTzBvdjt6ruc3jr fCu8McO7CCRwhvBhaLyj CNH9y6ZjLu73K55d IHdpZHRoPSIxNSUiIHZh bLxqsp9qwA0pFn6+PGNv xKG2eZS9jS4bFfWlIyF0 ZEmjT999OpHkmGDu Njpvz1whb1vtrHy8NlDh DVPpddBeeWqgWSA6l6Au Tv99O7OtvArwd2WxCnl9 xz65rVOrc0H6uDW9 W5OhJEFwfivscINkhWue YW1cYWCezoiePEXtcH2b RNWaR7g5ZuYdTsO1LHwz N9HrheW3LOWbiHWr CZdxGYL9L05oy7P4VTZw CFOsQEY8sNG0zT6foHna bjogbGVmdDsgdmVydGlj DFifKNljD613ALEw sEdnVBItjS1xTCWwsRVq zEpnHM7kSRLlnorgJwPU H5BBK78DLVLXP7GGToIw KWoDXR67S2PoDch4 AWUqpCavUW4jmEJxTFkz Zd0hhJsadRbjBS8cQGEd xsohDKGzkE0jEUBoeWWw vTriZB8dGLVbrtbt h446KgCaZLB6RJUkgLTa M8NuaO2tBrFhPDFwCQZz Y8LfzMVpQZujF508GNsf YqQ3KSHxreWzN2Sg MJWyxDxpLiF2t6Z0Ar6p QM6zSk5kUIW2RK61ZJ62 yNBso4X2ePP5E8UaTFCu fsxtcxdctRC9LBDh XIHzzE52fDAbQXroPz4w o5S8w997XWVjGDBymE58 Nx4euTklKYHfhUNBwD9a utncz7mvkwvsYpMk GOBrOLs8FMk9DKDhxBgt TmGrSSS4NzB2MDM0zAPf aR8mhUglxjevgK3aQrz+ EBPtTCLxfqB0Z9Mv Snh2VRXllLteGY9bkQWv EXzoJc5jtQvcyGmeRK6d GYAoaqjgPVOipN8uRTOf aWQyrIcrQD4pOLKl ynimh298WbJtKVH6YATz aFKdJ9IafV9iBaQlPXIb ULJdI1ArfBAfRPcdW713 DSnhUdB2HVUmneOm P4HqKAOkuIyhJmG7r7M8 Di3PKKgWLP07SL94fHAk a5T1bSQ5N7YaKSJyphas bkrhoXZ0WNQtLAXr kA08xSAoGEqwIc5nr3L8 g517FCRhGRYtcP44Ep8o kLydKBAinMPOrM6zmjcl g5juienkCuHrXUPv CFx0HHf0BUAmtAoxWxAl NSZ5LfX2UKX9tWBxuD9a sTglystsfH3rTnn+T1A8 U3WyKjvbxBY+PC90 SBPpMZ06fCEjsXWag0vm jPq6DlLxVUBgBZD2bIap TXamg6ThSGDjU32ckGWh o1F6LKFyePsuyHSb VtNwlHG2jB9jMScroufy v5kvqfqdQwrvx7rdzw58 xD70O45aRFeiBYSaZKFd IKGpXRPquNahpj1q wO7pHy7+WSOnsNC2gJA9 mS2hKhAfFwT5JSsoM309 EnPrtSMtIxezk8mqr1sw vHf1WxWzFFTwvdJa kEhbOYV6f8WqVi22O86i IHdpZHRoPSIyMCUiIHZh rGthyl0iyE0uSs4+PC9j f5exuv25hW62cCC+ PUCeRDT9bWshSQecPMLs kU8mAAjuWpR9GHXkVuDs tX10zBSqOCgcIu4vlNhs gSwtOS7dVUMejxdw w892SzXfo1kdEMReoIRk IAhrHFS5M43jk0L6QKHo YJCjTPI4kXN8fO3tcDtv bjogbGVmdDsgdmVy iZpzJHoxAAbqR299WVJt lTemHrAagOIiW7zpyhVI UA0nObnmbML+PHRkIHN0 kQmtTOkkAMRnnH8u ZBUpU9r9JhVpMxJ2ZUjz C5GgmpV1QCMfnRCmWVDp qKARaI2jduaza4guerbr KoMqMDPjGTh5FOl5 AOUbhLvlAlMjRWW3GtP4 SNQ0eHUjoW1upLxyxguh dK1eBle+RklOOjwvdGQ+ MJOfAPR5fAgxVPwi UGSivY2aQIZqB5x5HaTr IzH9ZHnbK8PpmnT0LFKq rZJqWEAcdUJNpE3iujap v8tellssQeGrTAKp JCc9JDf1BNEydYdyRpVk AEV6RkM8NZF0wCTpyG1b sLycjpqskP3bWux+TVJO OjwvdGQ+PHRkIHN0 cOmnJAkeISMemO4pWPGp R5z6VrWpOyN2BCikF4Kr wnO1KJCfcIBpTTFedGCA lC2gyvltf0vigzqo PmPdHSGtVUp6MAg8XWFe mPsqYvKnGWT8JpS2OYK8 jOStnH7ejYiybjwilM8u Oyc+UAT0ZDS3KH31 MM74P5HnFzjfjIEpcJX+ PHRhYmxlIHdpZHRoPScx JBLmXzSyhQqoLW2uPy7p ZGVyLWNvbGxhcHNl OiB (more content not included)... Normal [facility] Rad - MRI Reporton Rad - MRI Report [id number] Normal [facility] MRA Neck w/o Contraston MRA Neck [...] MD 10/12/21 7:46 am Technologist: JERRI [facility] Coding Summaryon 08-30-2021 Coding Summary HTMLBase 64 PudsbpnbSLl6vMs+PGhl YWQ+LI2JOHHvS71ypBHz oL7NE0lBRV7BBSYRKCBG JF9CYR5zbKE2DThlQ6Or biAv WqgfyCCwRR98OOt0GCI5 oRgzCGsabT9siTBbG6n6 IoBgMB40uI64WKulXNDr YuQ8EsYmwwmeuPIi B2ftFdVozNMhGlh+PHRh YmxlIHdpZHRoPScxMDAl DdZkdNxuSK2wKh8vPTIm LWNvbGxhcHNlOiBj m3qzGRKvUGuoQE9raHcm D3BmcGK4MWTcq2n7Zu77 dHI+HHSiCQG5rFbvVLzb r273VeZqv2gpHOD0 xQWjRXjxLLF9Q87bs5R3 VIVlBFCvHJS2dNH9oY5u uVsgnhjcJ7FgnLDzVzK6 MWE6iZKgfP8jfXls uxrbuT9pOog+N53RIC5J YQRERO9PDfx3G6IiDflk dHI+TP11KEZeKZ81iNZf nNDrm6cmyEl8BgVk ADDkZUP2yOzkMKesv9Zm KCKfP51kzCNti8H2ENGc gFwqzHBaRsScqIQ8oK1s NTyildgaw5nkhami Vovzb7nyjl44fU84O90e YSdwLHIoHUC6DJFfKKDg gJsnvn7wlU6hLc3+IDxj m7dah3lbyTj4FcQk KFGkgtPsmEnfSPK4s2Uc Ym56J4WduXpmo7HwYiq0 iq86gTQul5G2oDN0TFsq PCWimW8zBCmrXlQ7 VCJhMxQawJ06pIUfQHrh Oe5jmUgfdUatPC3nVYEx dndeJIOugE0gNERplJNj kHsnGY2kFUSmgsuh f401QfVyXOS4TDKujXZe D7LbfR7rTzLnBRUwHNSw D6ZntJXfONraU824OYsx TmO4ZLKzfcKuR1Th JOPugJjeOqE5v9U9Sz4J m4BziqmzSOA0HZykZRBx JgGaGuRsZsZ3Y8MvTsy0 QLBgdPwcBY8eU5Tf SFVzmrkbyvepwIN0CHLh XQAfpV23dMNrZDrwLz9d x6C3q131FTCvKKKirH19 Uf2ohTxpRWLruHQR uU3yygooo8whrqonRpHu KTXmSTx5YOj4NHYhrPau BbVuEBY3YtB9AKV3aONk tJ7xyMmctnaeuM8x Oyc+Q54quG3cHUL9RLR5 wrarPRIndqNoRF26UF32 V8BbRqoupMWbdGA+PGRp jbSwjSmoXP3iWlTu f7bys3GcNLxgK0FpYBUy RCszYow8YWSzTAK0zAL8 fH0yGRGpRUumq9W8dUA5 V8ClkrTxvy1am8vj HQItYRzhD69hqDOts3F0 GACrvLA1MDXwnJuoMdUy mU19Fya+JHKexOieu2Rr Qiukd4wwf7efkOb6 IjMwJSIgdmFsaWduPSJ0 w6XsJs46C39cVToiJZTe OTSjJXKaCNTxpVppzn7a uD1jKp2+PGNvbCB3 zXG5sI4kWDPjDaQ0ZAej D964VhVenJQgIixci2xq y1jzuTz2OzElLTWhicNc cZtnDMM7s7KyLu41 T35rIVvtYXOmGJMtBNQx ZTNnsLhtkx0orS2dPz0+ RW3vo6sopp60fL54sXS+ QMAqUED3cOgiGXej YLFzbY2xUXyyRnX2ICCj JkMioH67zSWkDDilCf2d uRauiVbuCY2aCEOokjej d156DgFsd9xeJFKz wTFsJFiqBIQ9C80pk8N1 ULYhBWQsZIJ6jDR0hZ9b bGlnbjogbGVmdDsgdmVy dUanKGxqXGcmU971 IHRvcDsnPlBhdGllbnQg RpKkHBm2M7MsWbf3NHTk gTxyOM0sfEDmKWawMw3d iQbhiKnsYZ1pQNTv uezvr276JaCgj2vmMLMx nEIhJFpfWBW5B35kx3X7 DWDaWGOtLUD6jLN6iD6f bGlnbjogbGVmdDsg ijEgvOcdHQozIXbqW329 IHRvcDsnPkJpcnRoIERh rLE8VS31PT29mAKtd4C3 dCA9O1FwJYQmrwxr zyalnDA8ALNbPXNjoE64 Il1oxCdzGl3uVPPlNDN6 JRXalVLwS6JbsG0lBeOc LBQyQAVbO0JdnOYb WUecP320YIsoScA6FWSi pxYwK5KkMQHkhXpjLvB4 p1S0Xa5SJ1R3XY60FO96 gVXza9P4iEA1D0Wu FWFarhgtdxuqrVL6UJJj BNYwrN96Em2lsXesUh1g XSTtPFY6QUMdoTWyZ3Lk jC7hCaNcAJAoWBTq V8HzmMStSXnrV003NFne IdT4IBImmbBmM0SaOICx dTvaSbF3o3O1Km4CARw1 QP49GK85pLCoz6G9 sOT4B0TlHGBanndlkrah wYD2XFYvUNLxmY33Ql0h bYtfUk0oUHNiQVU4CAWc zNVnN6OonV8fOyIe FGYdHQVhQ6DtsYFrGIoa T531TRjfBrE0EAVirlTy D0LwYPAenAquTxE0o3J7 Ta3WMSZrJD70OZQ1 eWS2TT28HE64F5HaHdle dGFibGU+PHRhYmxlIHdp ZHRoPScxMDAlJyBzdHls WL2tDc9zCOUgCDKa kCfovSEtPhVjv1foTLEr CQilME2uiLnrJ1VlaEO9 EORny3t7Wn42N21qI8Ir dXA+QSUfyDO8uNW5 zF8aWlMyFrN7XTplN693 XhKuqRByTgzdp6tef5ar xHl5AqA3WYGegpOggMmt DMI2v8VjWo00A24j IHdpZHRoPSIxNSUiIHZh kJlicg1vcQ7mKn1+PGNv aFS0oAE8wI7iAhBtTeT5 HPyyW966DeVceYIg Qlyvk3nmr7pvdMo5TlFy AQUeknVumImyKUP4d3Cn Ux79D6GgxQyay7DpNfe3 bq80aNAam6A7sUG7 M6ZtGEImpbpcaRPpaZgo XA6qKXStmdvwYHQckW4n HPPeK7l8JbFgGeN9SCcy E0TekrS5IXAqrIWt YMbsPGU7H15sa6Y9WWDr MWJgTEN1oFN5vL6kcFne bjogbGVmdDsgdmVydGlj NFtjKYgjN737LGDo tPwsPZHdrT4yCLLzeAEb bDhbNW1nGEHgaviuVpUP G8UQZ38FRYFLN1JMNtCc RUaOTM62C6PwKfg7 HFXvlEjbLV9qqAMbRIlv Dd5dhTwooImwMF2mPSJj gjvfARJsiJ8fUSSmqDQw aPkuPJ9vTUJxpxle x906HkDxPQP3QTNbcMXq C3MabB9fUiVlBTHcUEHq Z3MaaBVaMLtvF144GOpn KbY1EAUjvjGsT6Vs LDKblWrdMwU1a6N6Sx1e HW9fQv0dLHW6CQ53XM34 uJHkg2C9nZV2C9QmUKWa rvqvydkdgYO4CTJg OHMmsY50rOWaSKrrBi7v i4U6h846JUMdEVKeiT20 Xu3lcYnoFTApcLCHoK6p xephm9osikhcQyXz HSKrFGx4XRy4GDHelBdh DdUbIMI0GxZ0NXV8wWPz fA1llJqiwpirhC7jQoa+ IJRhQLNrtpC4V9Go Jzp4IYWfhBdmBQ0cfCQz OOypEm5jnWjydQrdSE1y OFOlssgtCYSibN5sNNNb wMUvqSciZL9vQNIt zxngf268JxQqQTE5YIZm jMRuV3InoA0bBlWeYHZi BXKjM9NrrEQxMEauU820 FTghGgM4ECVdbcWr Z6SsVRNtkSxlKxM5r1D7 Iu2GMBiMTY01SF76vBFm i0G6oME3D4GtZYCvhrvm yylwrAV6HVQmTDSg iL37nYCcKUvzNi6uh3H5 k670WWXgECRbqQ53Xf6b sFwgRMQhtRWJjN2ihzec j0kmojppSzKgNRXf VTf8LKs7CUOzcWmqRjVv BLO4YvW6COQ6gVIayP4x mKxlrpardM4lPsx+T1A8 B4YbJtxjsFZ+PC90 VFLyDC72mDRhvPJch1ar dFh6QlRnDHOwWFP3sMqb TLlsl8GgQMGcL87ziPRt n4X1PGVgzZgjoNTl KtKtvUS0kT5pAGlclubg x5lmmkudEyzpx1bxtx42 kQ97R22zDQggZYSfJGIe MYEwILBwnOtkit5y gA1wCj2+ZXYrxXY2fCS9 kZ8zOdPvWpX0NFwnG803 DnJcjLRjJjkzx5kzo0fn nEa5SfYnVGErzrAm gFyuBHF0c2BpVz77C80x IHdpZHRoPSIyMCUiIHZh nFdoqu9xnQ4nTo8+PC9j m6ycrh24tJ73iXW+ XLTuYRZ2xLqfUNzzNKFc cC9tHQlfWtQ6ZKOvJnJw nG71aIXqYGntZe1ycScg nVrnAL3zVZGrlauw o787XxNxk2lsRQXlpIYi DFqrVLT3D07ol6V5WEAu MJYuXZI6lGY1pX1aiBfm bjogbGVmdDsgdmVy cNzkAPumEQwfC906CFWr pLbyFxEuqVOzF9vuxzHP VS1aPnwnzZP+PHRkIHN0 aGbzHNkoZILiiX1f TWCkP0t1MxSqBiE6NZmv Y0QcveJ3KHTjeJSlMQEk xCHNcX1uxwdlf7byywui MzVgSBUgAWp9WBl0 MWDuxWlrGuJzICR5NwR3 ZBE5nUSxcC6uiIgrqbbl qD4jMhj+RklOOjwvdGQ+ JRKqZNR8vPdoFWlv GLBgpO3aJCGmE5p3WlUy VuR5FXgrG3ZlgdI1RZZk jSLoNEAgaSXXmN9ujfuc u4lnvmejYoYhHTMe VTy1EGf4VHOgbIizSlQj JIP1HuC8TJU6wJEnkI9k eEsujssfhQ5vCje+TVJO OjwvdGQ+PHRkIHN0 qVvpZOpwVPSzvB6hZYNx Q3q0UpGoSzI1HEtfK3Qe hcB5VSQasZBjPLLlxHXG aM8cemlze2zylrzn FcFrLDVnXJb6CAg1RKKi xYlsTiQtGZU8JxA2WNQ9 zZAutL6mxAjnubmqaX1o Oyc+ZWE2WOM0NO69 VO29Y2JaRwqcfGEipDZ+ PHRhYmxlIHdpZHRoPScx BRVgZpWwmAquOF8jTq8k ZGVyLWNvbGxhcHNl OiB (more content not included)... [facility] Coding Summaryon 08-29-2021 Coding Summary HTMLBase 64 LitlkjybCKg4nUs+PGhl YWQ+FA7DEKYvH68vvLRw xS6OO6gEWG3QXGQZUEAX NK0EUB5ftKO4PHtnI2Ni biAv JolecROaDU28IWx9RQD6 pBvbURqnzG1afSArH0p0 LxLtPG36jY25KQngCQIl IiN2NvTmyzlkvNOy W7qcRtUsaPDcBpv+PHRh YmxlIHdpZHRoPScxMDAl LwVlgYpyLX3zUd0xBBNb LWNvbGxhcHNlOiBj t8nhAZKuMPlzNO8dgZds P4UteEB0BMFld2o4As59 dHI+VNSpVIY8oPxgEGbh f126LfWhh7ecBGL4 dOCoPPxgMAO8J09ch8Y6 KTMbOQGoQGT1fUM8uM6d aEugobsgD7UkmBPxBiA9 BZD1uWNfxQ7ltVcf exbnaX5rMyr+V46EKC0Z HBSVCH3XFve8W8IeBzmt dHI+OQ70OJOnMD02qOUv gJHvr8wecSr0WhGl PUUyEOF7nCexZJcri0Dv RVRcC45zkFRoe1H8PEEw yDjnnWShCmCciQF0fD9n SDobvrcsy7kywzde Yujpm4kirb83lD72N94q NFfxDKYaDKE6EVTrKLLh dPrski9tlK9zGq2+IDxj l8was4nujUj0MtIh HNMbdvYnuLapZQI1v9Sh Hh18K1FrqQkab1UkZvu1 gf34rNBsk9E1oZE3LBii WHDhzN8nMXakLaX8 ANKfHgHxaK54xBMiBDcu Dq5jdBgctArtWI4qMOXq uxrxGJQipR5oFJKxtHQc lLmsVE8fEMMpzmhb y412IaEzMOW9XDHxvKTo K2ZskN7sVtYqZMXdLEFu X9ErrOFbKHefX013OYve GcR1BTUijdQgE8Wb LKAijUqjMxB7v7C1Vw9D j3KuivndUYG7SXxrBGAg IrXhIiOiDkT2F8XfFqk0 HJXkqQrdCP3hG0Ga NKMxaiugjjtqzIP5SCKf ZGRdpQ86kEVlQFleEz4d z7A9b227UJCeKRTesL81 Cz6oqWoiZESmmISF qL2ppzzsu3uejnxkOsZc QLSaWZd6ITe7QNXxaUda QaSbOJB9ClB1SLO7bGTi mW1xuPjxwymzaK9i Oyc+C89jtS9lVXL2YXO0 wykiLQRiwkJsHS58BU81 Z5YeNimobFDgfRJ+PGRp kxMlpHflKA2kVjEo z2zql2GuCOupQ8VvYXAl ONqyBvp2MHHaCMD8mCL2 gP6fMYKbMHaji5I0gLH9 S0SijyVukc4ko2ry JSAbTAyrW29lhVZob6M9 YBMvjSR4ZNHaoMycBcZo nW21Bvp+HFUhdHmbc4Dc Eewce6tqr6julRf8 IjMwJSIgdmFsaWduPSJ0 m7XaEy67K86rMWrlCLCk DLVjNBHyJCRiyRwlov3r hZ3nMq3+PGNvbCB3 ePH2lA3gUXDeQyD7OQbb J049WwTryGMaTvpdn2is o2edbTt8YcMqUJEggaSn lWlmJTO8i7PjLj04 N31zDYhiMWYmSXIwYWWn SKZjyDmyvz5kfM5nNt1+ DX9qr5wqgg20bQ00aKZ+ YJXpDVD4jLmdIRuf ISLboR6vSAcxYeU3DKQo OcPwnC78gMPvUHfyYj7s uBuxgNnmSR1jCARfsbuh q554GrHvf5mwGNSa mEKtHMlfGPS0I08kb3I0 XYZnHAPrHJS1wMV2qN9m bGlnbjogbGVmdDsgdmVy tIjiRSrdPLyxP221 IHRvcDsnPlBhdGllbnQg XfFfJMw2H2HrZgy5WWNo zIcpHI4qrLOvPRhwWt9g rTcclIdeYC4cNIPz sfyzx042PsLfr4qeSRHp iLNeOIyvXPP4B03pj6J3 WJJvVCPlTZK6hZK9oB2p bGlnbjogbGVmdDsg vaGbnJbjZRytBBerL886 IHRvcDsnPkJpcnRoIERh fVY9TL73AH78nQOfk2T9 wOH7Y8IvYMJurtxo tkrjxOS2OOQvSPMieJ51 Ow4jhAdlDo5vPMToJJL6 AJCpmANtB8MeqK5pStTi LCZmJOJzX4TifUHv ZQefR204BWtsSuW7RSHs osXlP8AmFMWclKzgGoR5 r6F4Id2GK1B5YR85YR09 gTAtc2W4iUX8T3Ry JFBkxvqcuhmsjPQ1SOOm GRGmtW83Pu3uqXqbLq8b ITSjCAZ4TMYvfIFrN6Uz yH7jUxRsGGSiOQMx Y6UfaHLmDPdqC364TKoj EoK8LDVfdzNjL4KgZIJe qKhhKgC4o8X9Mo4MLUw0 EN58VP54xJHpk4B3 zWK4I7JpZSEelhuifpmg kKW5UIImQSKymU55Rz3e xWzaAh8vBBUyEXE5UPNh jYVlO1XykN1kOnQi IRPaWWOiL6CmbJXvLCwn M543QPxfCaB2IWFqmnKv N9MkDXStcBxqKuF0k5D9 Bc2MHAYkXU17KIG6 xHX9ZY08YH69F5ZcCcol dGFibGU+PHRhYmxlIHdp ZHRoPScxMDAlJyBzdHls EG9mCr4iIOQvZASc qBgdyZExWnUxc9otCKXq UKhwFB9cmMxzH5ThnSF9 IKEka0b7Zy36I26tX1Oa dXA+NAIyuHQ5sNW1 oK4pAmCoSwN5EUuxW948 HfMeyUUcQxrbf7tal6nt cYh3IuR3TWGurfZtpUnk WYJ3q5AsCt79D74n IHdpZHRoPSIxNSUiIHZh qKoznm8rnK1eGa9+PGNv oRR7zWS9qN7xXuVuHfX9 POvnU971LlYfvTQb Flljo8jbo3bfvOv1LeFg CAPliuTstOxpURG0b4Ep Ve14F5UwfXitz5WlUja6 xf67wGRjq9G7xWJ9 O8ZgOYZecbmesFKvcWxb YU1zSDQwlebdXDAdqX9c UYOoG5q4ZvQbMzL7AOey U7DnjgC7RKOalTFi ZXnwLIF4I32jr1Y9NJLn DMIfCJT8sHM9rF5emMij bjogbGVmdDsgdmVydGlj BZxdJSzdL236TECi zTykPEQjlH6xLHZrfNCb kAxgUK2jKMSfvhbhHyDF S5QZU18PYSOQR6VXAbFw LUyTZC02E0MuGkr1 CIHvtWymOT0rqXRuFBed Bg5xnScjqHfdVB2aUBMg kqvfMGBtsB7lAOBmzIKq lNjzGI3nKRBtinkk y204BhVhNDR2WSDovZXb A9NqqU6yCtVoXOMzEGQe S6RpgZUnPEhoP406CRvz DkD5JFIudpLxV1Qi BUDtkEcwCfJ9s8R7Dw6f OO6pNr2cQLF8NG90VM92 rGErk4E7oJW6Z9SzNUDq uivbmhyarCT1JLFm VBAqbY01tNXnQQqiQw2m p0W8f523GLTbCXJxgE25 Iy3skLihIQIguMRLqX8i iggqp7ukqrroZtQv SJTpAWl5EUw9SXLmlKsm RyLbAKP7GrF2GMS7mAKi aU6eiRahczgsgC9cHvu+ KGRjRDBvfvC2P0Td Hbf7RQZkzMlxNI9lxTYd XSdnEg2zrVqifPxlJP3h AHGftqgsQDYbtP5kQFQw oCStxJcqMC0jWTIl csgix599YbEkDGS4QAZn oZPlX2MbuZ7oNrGvBVEp LNJfJ9WggOZoYQdrA471 DTphDkG8GZVnhcMu H7BfNPZrbFraNuY6x2G8 Rn6JYItOMU61RG27eQLl y2D5nAJ6N8AtCVIsjrzq lzrquRJ2LSJiGEFy gZ99vPBeBOokNl2nj4A3 t791PSDtGTMszL57Vs8n pWxtSIEbiNTRqV3lcqfy x2xzphjzUlVfOVEw NTs2QEu9MZVmqUpbQnWm ZAO0NyN8MVL6nZMcnE6p sJqzifzpqD5dOvd+T1A8 G2BfHbspuRJ+PC90 CAAaNR39eXFjtVTli8hv vMt0OuVsXDNwDYO1rZwq WBcmz0UoKCOxS18mkNQv b8J2CPDydUjryJOl IjPthZN8jI0yWNwtimvk x8dasvarZyydt8zenw82 fH34O26uLPhuLGDwPPCr OSAnHSKneZslls4f fZ6tJi9+VTYucGW0kLK8 iE0uKwChDsN3GIkxQ436 CvKpzGFwKhsuq2nfu2ui fGl2DgGoNJTcjhHk cVfuFCI0g3CrYf94W12z IHdpZHRoPSIyMCUiIHZh tZesji5brZ1hOb7+PC9j q5ikrn29cE78zHZ+ DKPbUQF2sLzeAHwcKVYq nV5jTDhpUfB8OZByMnPs xF79bSTjEIsbYy3mxPzz eCqpDF3tNJDomzpp x737NjVha6gpIOHdxMSl NUrhDMT0V75je1S1HBNv HFPyOVX2zTT8wC3wjWsw bjogbGVmdDsgdmVy cHrwEGhwLUwjV604JMPw mDftZgUlmYElT0zbqkXK KP6eIamawRO+PHRkIHN0 sWxlHJoiTJQeaC3k ILRuE7a3BmCwXyT1TEhp A3LnfaU2FAMegODoATFa jDYTfJ5kkuvvl1ghtnrh MfDdSVXkRMd9LJk7 VQCfnVipUaYhBYD5EeX5 URJ1iNQvuU5axGvuhafx rD4gRbf+RklOOjwvdGQ+ GOHpZOE2aZzqJHyj VSTuxY8xADVsM8y9RnMg ZaG6RJgrB1VaqpY5TCJr vJVzXBToqCHEnU1sotvs k9latksgNdTuTPOa WFa8CXl1OPTyqAfoNnPa CQZ6BoZ2VWT7aCLisM1y tMahisoquY7kQdv+TVJO OjwvdGQ+PHRkIHN0 dWceSFbmOISitW1jIHSe Q5r6XtCuNqQ6ZNkrX1Oi zqY0MTVjdONdTHGaxDDO jM6psezps0mzrkuj DrZeYFDrKKv4NYd4TKHo yUblRbIcBTQ1SdB7DFE5 pZFppK2nnHxabpsqyI2t Oyc+LTI2YTR1RY47 IP05J3JzKtdqwXKcbLZ+ PHRhYmxlIHdpZHRoPScx YFMhArJtjShwAT3fBz8m ZGVyLWNvbGxhcHNl OiB (more content not included)... [facility] Provider [place] 08-29-2021 Provider Orders [id number] [facility] Rad - MRI Report [id number] #1.00OTGTIFF [facility] MRA Head w/o Contraston 08-10 MRA Head w/o Contrast MRA HEAD WITHOUT CONTRAST; 08/27/2021 2:19 PM EDT Clinical History:LOSS OF BALANCE Comparison: None available . Sequences: Axially acquired 3-D gradient echo series for the purposes of ytzz-sh-zxmzii MRA. From this data set multiple volumetric [...] MD 08/28/21 7:28 am Technologist: JERRI [facility] MRI Brain w/o Contraston MRI Brain [...] Deshpande MD 08/27/21 2:50 pm Technologist: JERRI [facility] MRI Spine Cervical w/o Contr indu [...] Deshpande MD 08/28/21 7:38 am Technologist: JERRI [facility] Physical Therapy Noteon 07-12 Physical Therapy Note [id number] [facility] [place] [facility] Provider Orders [id number] [facility] [place] 06-29-2021 Provider Orders [id number] [facility] C[facility]on 2021 Coding Summary HTMLBase 64 QrdsggpgRVd2bTu+PGhl YWQ+HW5UJMCnV94elJFh gF0IQ3cXMP4UTBXIKFGF MN0AAH8liTO6IJhjB4Tc biAv PzihuDGdEC24JWa9LFC3 pWkkUBxofB7myQFeT1t5 LmEhJE28vE64TZbtTTYw NhP7JpZvpirugICk U1aqBcAhnKIoAry+PHRh YmxlIHdpZHRoPScxMDAl XwSlmZzdLV4yBc3wMWUi LWNvbGxhcHNlOiBj z7iuCUBwSDefDO7fcDqh T8QuvLE1ZUZlg2w0Sc33 dHI+LKRmEYV3mXodHMro h796EpUdi8ogNQI9 uTYuWUxxJNY1Z83hd0S3 VLNrCBVbCPU9wYH8zQ9g oUmdarbdO0JweRYmQkR4 PVH7kWGepS3rnAde yvygoQ3rKln+W95SNA0Y RCORXI4CGmb3K5IjQmrx dHI+AL31XCXvKF79eSSw rQAyy0jmvHr2UjLs QNJsOHD2qYfbFCoft4Rr ULXqF96onRLwj5H1NDYb tUyaxALsEtXjlRC1bX5e YCbypnnmf0jznuyt Vxlzv7zuhc03lW36J80i OCsjIRZqGAH3LVGwVBVm kQrqje1kyB9mEm0+IDxj y6jxx0yzxMf9DeGj WWKplyJnbLdbVBB0f5Jx Te47C4NrgBtic6SuSww2 ny68qGDsj4R8xYI9BBba NWPkrY3rVJzpPpX7 NIWrRqNtnD35iWWiMXas Sa0ltYdqwTqzDK5oTVFg sedeMMMzdN6vQVDpwSGm pRudCO1eMJBepgpj b091JhVhRHW5AGWbgUGk A9QbrL3zTlIaYFNkKWNk Q5EopYYmHInhA915UXhd WnE0SPAlljWrK4Oi JIOenUtkQmF6z4Y7Lm7Z u1PobdooTFW7EXvwIGU5 XmT1CsXkTtC2R8RmScr9 NZQiiIzaDJ6uJ5Mz JMIesmhrgvcgrCK8IGMr VQJzqS09gAOlRNqvFt9n r3O6x072NKHuNHGpcM89 Uw0poTpuEVTbgZVQ bT4bdlewe1fnpekjBtXt FWGdPWk8HBv3XPWhyTxu LnSiLBK1UaW2RJH3rCId xD8ynYlrgpzqpR8b Oyc+R69caC2qHSA0SNR9 fmwjHZHsnvPnWO12EK66 O6JrJqrelINseQE+PGRp msWtrArjJR7kYkTi k5lmn3DbKSxgQ3NmWSOf SXpmMmp2KBGyMPS2kQD8 xK7sFQHsWKxbs4O8uQD8 R0TosoPhho1ms3kk KLDyRWnaJ03prNFbc9E7 NKBavWH4DSMxcMxbZwRo yB69Oid+EIBfrBsjq9Il Dxlpu5tqv2wuqUu5 IjMwJSIgdmFsaWduPSJ0 a0WvPo08D49zLUydBOLj OOVwJBCeDQSnkJgizo2h oU0ySy8+PGNvbCB3 jZB0gD1iMKJpUoF8NAqx E808DeYhlZPrGhseq3cs x2mtiNf3WwThVFMcdpKm tAbtQCF1i7ZwQw04 D10uJGosMDQkRRLgXATk OFEloEtnmh5sgV2hSy6+ ML5re6ewzv52nJ47nSB+ BAYxUET7rEnfGNpd LYGlsW3hHSrgPpP4LRGu YwVlqK43zRPbMInaMa3j dCsvzFbkCT8hLPGyetot p816ZoWnx8ahWCBt cWUbEVtxEEV0I74if8L0 BVDhQHByXAC6uKO4iG3g bGlnbjogbGVmdDsgdmVy jKjsTPhgGAsnP879 IHRvcDsnPlBhdGllbnQg XjYrRQp0X3JtYez9TJGb oMhgSO2obEIaNAgeFb4e wRsicCqoIL7hWRBj ujdln738IsGuh0paYCUe bLSwGXgqYNQ6U92gm4C6 LTBxFYYmOKK1bED7vL3a bGlnbjogbGVmdDsg xqWdfArjABrwSKgtH906 IHRvcDsnPkJpcnRoIERh nAS8QP57TY41vHQoz4U6 rVU9S2PpZMWqgucd mvwcgDJ4VKDqBQJaxA14 Au7dkUjfKo1fCZFdXCI1 HSCmhDQdB7LrpO1rJcNf XQErHRTiE7LvlSYr FPjxO917ODseKaE3EHYu bvLtZ5OaRIOtaPjtXpJ8 w9U0Tw2VE9V8DA80VI86 hCDtb0T1qUH7V6Ud JJDgztjobalvtZG3TXJe CKIxkB13Vl3jjCmlEq2z WGTiPKV3OFWrtYKmM6Zm aJ9jAnVrAPMhIBUf A1MhuAKvKBayB439ILvb XyD4IXSymdJoJ1PmQFFo yRhiAxB9h3O2Nz3WPVa0 HC67GF31hSSmr8A1 gOZ2V1DaUEEvvcqfzthr tRY1NWXjGJIbpD41Ym5a nTdoHt5uBIXpPJM3EFKi qQUcZ0FfbF0kTbRh BIMhGMWzK8QttXLgLMsg C601YTrjCjC0EQUgekKl X2VwRATbpGssIgV8r9X7 Bd4MLSKfJU31SUO0 yTW9GH20UR91A1CzQpvb dGFibGU+PHRhYmxlIHdp ZHRoPScxMDAlJyBzdHls PN7rCn1tJJIcGEPp zWiiyWQcKpMag8lkLLHs BRgpKF1pkJrkZ4PskQH7 AEVdc2m6Ma90H64fB6Ws dXA+VDFunKA0nEW6 jQ8iElRpDyG8CHmyD227 CbJhgNIrMhhag4mpz3ik lEg9MdN5VSDsomIowFto KJX3c3TcIs96F19m IHdpZHRoPSIxNSUiIHZh uHtvgh1arV2tAx4+PGNv iAE1rGO0jD9uKiLsDnD5 USrwR738GxMjfPPk Ueuka8eqs0bppJq0AwYr FYQeknOjtSibXWK4g5Yl Yg64P2LvmDmuv6MuOok5 da31aDUsd7A0uFK2 H0UfNUDamyxhkKLvkJiz EP8jDNBihfzaJIIxkM5c EEXmT6e9YeYiPlZ3DBke J1TkaqL9TQVkkZFy YGweDFC5R76ns0A6NSKc FDCzMOC9vOS2cG6weFsx bjogbGVmdDsgdmVydGlj COdvRJkjK053WKVv hTdlJZScbB6mSGXojUOt uAoeMN5pNBTmaqtfJjUF J8QPP16SFANKA4ZNDpMt PItZJD41Q8LnHqz0 TCKheKqqWN5qlQNuLGhb Vu7oeXkpqKnxRU6cHDJh wxaiOWGohJ2kHTNajMPe vLmnGK0cBVTmpwnb q641GvJxNGJ7ICRcnFBv A9NqdB1lYcIpVOXuEMBn M3BrpWNoJIrpA682XFbg CmZ4IJIkfkAkZ0Pj NVUemKwfGyX2u4N1Dk5w LI6bJl8rPMD8TA29ZR09 rPIrm5J1lOF1H4UvEZZa rvaplbvtgSF5DMUq HJTclH70yKYdSLojLc6g g3X6v784PRDyDRUotY07 Vs0giUpjGREfhIZBgE5u dqhhv5qutjylOeEl TWEbEXg6JPd9LVAlcGde BuPwLHQ9QuX3SUP4eLVc iN9kfHtuttrgqM4nApt+ VGShSYOuisY8B2Rp Ind4MPCvcKueYH6sbFQt OAovDz5hnGdhqSxkDJ7a GNUqrbjsDBJnqP9yTRUc mLDacIpmNS7tZBXz hzfas742XqKfAON0WEGo mGYoG8EanI6wViCiQILp UWCeA5UtbPJhHGmmP587 TOfyXsC2QIEiouAr A2MdHLZaoCvoJdO2c5J5 Fy5BRUsKRH04UA03bWHx e4P0rTO1W0LkHKHbwqoj olhqyBN8UARtVYBk eI53rUGpNEwrWz5rh3G0 v486IJWgYZCqtN31Vl2b jXtyHWAqvVYPnO9kkkuq r4nifjogOzLyTJUk CMb4SOa6QOWvtMkgHkHf BHO2NoV8DQJ4fQAuhY5i hKuagjselF8sJly+T1A8 H1KzXsrfyDN+PC90 NHHcDE91gZAbdFRph7mt lNa7AuToKXIwHSL6yIym CArtq4ZpHRDbO59caZYd n7F7OHNawOitiJEm RbFpnSZ0dZ6oGBdfhtwo d3hrlkpaPuzta8nbnb43 cN85H60vZYcvZCPmRALq BDFcUXHydIsste0q pY8pPg5+QUAyxJT6vGZ0 jS3lLvSjIvF2GQbjJ929 RcIxvSVcBcocw0xzj0gy nRw1NwQvQUJzodUv jGteOXY5e1MrKg02Y17k IHdpZHRoPSIyMCUiIHZh oXqrqc3emB3iIu3+PC9j g0vist04yH21eRE+ QNVqZHC6lJyrWYfzDSRz sI7iSBmxXkY0URFwAgBx qE88qUCgPRafHb0txLgq aCghMK5gPHVihbmm w024EjYfa7kvTYGclIWh MFzvXQH4J02tc0T3JTNm XMOtLHB0eYZ6qB0neLbe bjogbGVmdDsgdmVy mIntLZhtEOyxU212ITXp yZegCiPgsWBsE0ndtpDO IK5jNzeniQX+PHRkIHN0 vTlqVZtzYGIveW7u RGSeT7d1NaUlImV3GTjn Z1QdsxU7IMXucKAsKIGf rHQSfN7takniz8sxsbqe FzUnPHPwEMp1WEe4 IQXqgDhbApYmSTD5DoC3 JFC7dYGjuC6xtMjjooxo uJ0rPrt+RklOOjwvdGQ+ NMYmOAQ4xCdeXOzy LVGmfL8jEGDlA0o2YyXt DrO5YYxsE8KmujI5DDLe vAEoRHGlmIVKeX1oklbl i3lziiwcTzYnXUBn HJa4YHu6VPZrsVrrZaMp HME4RqE9TQY5jLZdwH1a fJlrcgqxhH6qDzp+TVJO OjwvdGQ+PHRkIHN0 bFrrXCeeFNNsjP6vCULa H9j4HhHsScS8XKilO2Mx lvD4VQRumHRqYFMygSRW cL9xfwguu3fogkhg JoHdXUYpTPs3UHz0LKHm xOpzArAqZKG0YdZ1TRQ4 gJZtxU0haKfwadojfD0c Oyc+CXV0UHE8WV79 NM50X2EpIdszfNMlbRU+ PHRhYmxlIHdpZHRoPScx UTBsYqMngAclPY6bBs5o ZGVyLWNvbGxhcHNl OiB (more content not included)... [facility] Provider Orderson 06-25-2021 Provider Orders [id number] #[id number] [facility] .Auto Diff 1on 06-22-2021 Auto Spencer % 10 % Normal 11-21 [facility] Comment on above: Performed By: #### 1 [id number], [id number] ####[facility] (DEFAULT)[address] [place] [address] Baso Abs# 0.2 x10 Normal 0.0-0.2 [facility] Comment on above: Performed By: #### 1 [id number], [id number], [id number] ####[facility] (DEFAULT)[address] [place] [address] 59762 Basophils/100 WBC (Bld) 1.9 % Normal 0.2-2.0 [facility] Comment on above: Performed By: #### 1 [id number], [id number], [id number] ####[facility] (DEFAULT)[address] [place] [address] Eos Abs# 0.4 x10 Normal 0.0-0.4 [facility] Comment on above: Performed By: #### 1 [id number], [id number], [id number] ####[facility] (DEFAULT)[address] [place] [address] Eosinophils/100 WBC (Bld) 4.7 % High 0.9-4.0 [facility] Comment on above: Performed By: #### 1 [id number], [id number], [id number] ####[facility] (DEFAULT)[address] [place] [address] Lymph Abs# 2.9 x10 Normal 1.3-2.9 [facility] Comment on above: Performed By: #### 1 [id number], [id number], [id number] ####[facility] (DEFAULT)[address] [place] [address] 97410 Lymphocytes/100 WBC (Bld) 33 % Normal 14-48 [facility] Comment on above: Performed By: #### 1 [id number], [id number], [id number] ####[facility] (DEFAULT)[address] [place] [address] 277[address] Spencer Abs# 0.9 x10 High 0.0-0.8 [facility] Comment on above: Performed By: #### 1 [id number], [id number], [id number] ####[facility] (DEFAULT)[address] [place] [address] Neut Abs# 4.6 x10 Normal 1.5-9.2 [facility] Comment on above: Performed By: #### 1 [id number], [id number], [id number] ####[facility] (DEFAULT)[address] [place] [address] Neutrophils/100 WBC (Bld) 50 % Normal 44-88 [facility] Comment on above: Performed By: #### 1 [id number], [id number], [id number] ####[facility] (DEFAULT)[address] [place] [address] CBC w/ Auto Diffon 1 Erythrocyte distribution width (RBC) [Ratio] 13.2 % Normal 11.5-15.0 [facility] Comment on above: Performed By: #### 1 [id number], [id number], [id number] ####[facility] (DEFAULT)[address] [place] [address] Hematocrit (Bld) [Volume fraction] 45.3 % Normal 34.8-51.9 [facility] Comment on above: Performed By: #### 1 [id number], 0803830, [id number] ####[facility] (DEFAULT)[address] [place] [address] Hemoglobin (Bld) [Mass/Vol] 14.9 g/dL Normal 11.8-17.7 [facility] Comment on above: Performed By: #### 1 [id number], [id number], [id number] ####[facility] (DEFAULT)[address] [place] [address] Instr WBC 9.0 x10 Invalid Interpretation Code [facility] Comment on above: Performed By: #### 1 [id number], [id number], [id number] ####[facility] (DEFAULT)[address] [place] [address] Man Diff? Auto Normal [facility] Comment on above: Performed By: #### 1 [id number], [id number], [id number] ####[facility] (DEFAULT)[address] [place] [address] MCH (RBC) [Entitic mass] 31 pg Normal 24-34 [facility] Comment on above: Performed By: #### 1 [id number], [id number], [id number] ####[facility] (DEFAULT)[address] [place] [address] MCHC (RBC) [Mass/Vol] 33 g/dL Normal 26-37 [facility] Comment on above: Performed By: #### 1 [id number], [id number], [id number] ####[facility] (DEFAULT)[address] [place] [address] MCV (RBC) [Entitic vol] 95 fL Normal 81-100 M [facility] Comment on above: Performed By: #### 1 [id number], [id number], [id number] ####[facility] (DEFAULT)[address] [place] [address] Platelet 295 x10 Normal 138-427 [facility] Comment on above: Performed By: #### 1 [id number], [id number], [id number] ####[facility] (DEFAULT)[address] [place] [address] Platelet mean volume (Bld) [Entitic vol] 9.1 fL Normal 6.3-10.2 [facility] Comment on above: Performed By: #### 1 [id number], [id number], [id number] ####[facility] (DEFAULT)[address] [place] [address] 06066 RBC 4.78 x10 Normal 3.70-5.30 [facility] Comment on above: Performed By: #### 1 [id number], [id number], [id number] ####[facility] (DEFAULT)[address] [place] [address] WBC 9.0 x10 Normal 3.5-10.5 [facility] Comment on above: Performed By: #### 1 [id number], [id number], [id number] ####[facility] (DEFAULT)[address] [place] [address] 62340 TSH w/ Reflex to FT4on 06-22 TSH Qn 2.41 m[IU]/L Normal 0.45-5.33 [facility] Comment on above: Result Comment: Gene ral Population (males and non- females, aged 21-88) 0.45 - 5.33 Females, 1st Trimester 0.05 - 3.70 Females, 2nd Trimester 0.31 - 4.35 Females, 3rd Trimester 0.41 - 5.18 Performed By: #### 1 [id number], [id number], [id number] ####[facility] (DEFAULT)[address] [place] [address] US Carotid Duplex Bilateralo n 06-22-2021 US Carotid Duplex Bilateral DUPLEX ULTRASOUND EXAMINATION OF THE CAROTID ARTERIES. COMPARISON: None. HISTORY / INDICATIONS: Evaluate for carotid stenosis TECHNIQUE: Bilateral common carotid arteries, extracranial internal and external carotid arteries are evaluated with hogan-scale imaging, color Doppler, and spectral analysis according to a standard protocol. ICA-CCA ratios are calculated with insurance follow up representative peak-systolic velocities and recorded. Vertebral arteries [...] [place] 06/22/21 2:18 pm Technologist: DIANE Self [facility] XR Chest 2 Viewson XR Chest [...] 06/22/21 3:55 pm Technologist: SE KATHY [facility] Coding Summaryon 05-23-2021 Coding Summary HTMLBase 64 OhsvvdieXDy0zAa+PGhl YWQ+RS6GTMJkE67vrJVq lW9DZ4fCRB9TQIIFTFGQ OI7NRL4mrMA3AEsgK0Qu biAv XptdpLPrMF83KUu9TLW3 uInyOLhupW1afMLyA3o6 LcJvOJ37hJ25LLeaZCAz HsI3QhYebaxkvZIi X9elXkQacXJxCum+PHRh YmxlIHdpZHRoPScxMDAl XjRmfQvvYP5bZw3tHXYk LWNvbGxhcHNlOiBj y3ckKZVdBAmyCX8iwDnh Q0GiqBJ4RCGwd7z4Nr01 dHI+SCHmZGY8pTheAMdy j516OjAqu5gaOCK7 vLGpNVrwCXN1E47fo7I7 XXVwTTLzFJJ7fYO5rG1e tZtgnaxwO4SawCAeAtS8 FIY5xPGasE8kjEfn drpkrY5qGbf+A85LUQ4X PMVVLR9ZVur9U8WcLshz dHI+GC96BGJaNJ49mZMg bAIao8broWc4ZyKv SAByBLJ1eMesJSbxh3Ic CAReJ98seNNel2L5LOXi lIzeqYIlXnDpnTI0kG9w ENrnasfxg9ynugvv Dmrlw1amkl85sA58Y01g GVcuWBHyCQN8QONtVYKw hRcmwb7ovH9tDu5+IDxj c1rjh0kztMr1VgUi JLGyfhHzcRxpATH1h7Ol Tc49Q4WksOhsl4QdLvp9 st09mDKav1K3eOS5ZTwq QASndI9rKYffMgJ3 GTThIsGqnT17rREzTPoy De8taLfceWatDR6yJUYv gtzfNXYlsD3bTDLmfKCk nSwiNN7rSIQjkchm w478EhAwYAZ1IHJokGEp H5JswS8aOjTmULXkAPLx W4OyjNGjXZooX540TDpl JiO5HHHtaoKuF8Yn YHPluOmiQeJ2l8S6My8F t2RrjitjSTW8DVadZNF0 BdT5SiEvWfE9Z2RuIes9 JKRtqBpdIP0nF6Wo DJFmtsqcpgnsjMN1JFPw BSKvqQ66zMUyTOmlPx3x x8T4o033VRUzETYtaG09 Oh2qbCfaEGRfqVVT hR1fcephp8aapblsZxSu UOHrLGa6XEw9IQQaiCma GmUxHAZ7PqA8ZVT0qANu cW9fmBuitqczbL0y Oyc+M47veZ4iEFQ0LMV9 ipysKKBifzFmPJ99IH82 G1SwOvueeBWnlZT+PGRp jbRccYmuAL5zRcZj b4jli2QqWZytY5ZlFTQw YBiqBlq7DPBbASX8zIF6 iX0zHQDhCHjcv2Q5wTF0 P2BshwDqrm1qk6yg ZPCtHZyyP74tuQZbo6D3 MNSuaYT6SBOljRcnRsFd oM09Ted+KBRkyZpfq5Pd Irxfj7tyu6kieUx0 IjMwJSIgdmFsaWduPSJ0 d2YmVe51C34nNYxdQNWx SAUcRYPmTZZfdGzdnw9r wN6gWo7+PGNvbCB3 bEP4rE0hYIMuKtH7QKdl P134NnVrlTVxEasod5cx w1unrSn6JeNvRJYtizEh sPvvHUL8h1CmZu15 V34lTTjyHWZgGBTiBOQc YUXaxCyrcm5rzO7hUh8+ HU4lx5fcel40yN68iVI+ NXHuEPL4eRemNMto BKFdtV0rGFksLxC0GAVv JgVqiZ02eIKoTBtvFr5q xSxrvOclDP0wSRSyytgf i594TnDcp0mnUSOe iOMnPXhnNMX3R92bv2L6 KWDyJXStTNB2aGE7bR0v bGlnbjogbGVmdDsgdmVy fVluCHhdSDzlE757 IHRvcDsnPlBhdGllbnQg WpCqTAj3T1RuEut2FGNu yOrjJB1edZEkFPxpBd3c yBkhwFadGR5fHTCq fizlu959HeCrn3ssCANr dWTbZXrpSJE5L41ey6Q9 DHAoCLVkYMF1mIA8aR4g bGlnbjogbGVmdDsg ahXkdEkaSOrxPCxbX444 IHRvcDsnPkJpcnRoIERh bIZ5YY02TO63mXUte8M6 uED2O5TgKTKysket ifettSR5QZJpNCFioN54 Wd7pmDlgIr6nYXNqQKI1 FCTqbQFbA4AsvL0uLyZb GGLaNBGsA9ZfnOFd LCceK739ZSbaZlU8MDFg stBeV7BqRHUhiYdcRlV4 m5I5Jq7XH3H2RO38OX42 gTDdp2O5sUI9A6Cf YBPohsfondoieMS1TNQf GXXvhQ81Rs1tkAkxPy9t FQXdTLF5AITwwLQoT3Ei bM0hReFlTFDnQDJv W6QhuTQtWYhfN593OFwd HqC0JTVhsnJzG8WeAGQf bTdmYoC1q2J8Il7HXXj0 JZ38WG71nSApw5I9 zTQ0Q1ZkSBNqoxbtajtb iWG7YKLuFLQiuL37Df0f pBouGs3pUROmHPX3NVXg hDVvM1YmhP6yNdOm DWKdREOsQ9EdgGDfITio M114RElxHwJ9IJAinkQc B5HmXORpdKdmHkY3n5N9 In5FSXBmHL72XNY4 xZO4WL26BE08P1IvZvni dGFibGU+PHRhYmxlIHdp ZHRoPScxMDAlJyBzdHls YN3wWj8dJOLiXTUj rRvftJKhIaVhp1qnCGSb DFaoIF9zkRabK2TliRA0 TBIvu6v6Lv49C24qQ7Im dXA+NRHoxUG0iXK1 mK3kLwBpVwX7JXnsD549 GdMquSXcMdnpc7sop1jj fVc2LyV1DMUcffGmoSom IVK2o5JpNv06D83s IHdpZHRoPSIxNSUiIHZh wVeoli4xeA7yHb4+PGNv xSA8mAO0kC5dLgKiHzA6 STfaE534JbXbnMAs Gbpen8ejt9uezZf2NiSs HNQhwiDceGxwEJS4v0Wl Ez62D0PkdIncu0UjJdx9 qh01aCZxz8Y4nOJ5 J9PaRGTlcqtbaTBipQgx XG3vCUSdqaxpNKAgkP9r AAGqP5a9CjFwBnV1DLzy A0ZysyH7YFSwaWIq VFvuNIV2T09hy8M6ARId OPWyFYR2wKT2uC3wgYof bjogbGVmdDsgdmVydGlj URmuSNhvV625YICo lJvsOBBrpP0oKCZfzHGw mQyvQN1vMBMaqfplKkGY D1XOZ07FSLPYW2REAzSs YPrLNQ81K8XbKsk5 TBKndJahBJ5fwGIeMAws Hu6afAnyvNisPV6fJXMl vzgeRLIvvU3eFOWciTDy qFwtND6xRFTabxob j269TbLuKDH5ESDrpPTk I2JlnT5hXkDuTKRfAJYv I3CpzGCtLSlxB437ZGjx NhY2FUEtisFqJ9Ws GDDcpCtoNwI6f7K0So7r HY3oEg5nFXT3KR74HH24 kMXuv3D1bTZ1T5QvHFYl ahubvvychPZ0EANu RSCtyC12gWVhBYmdHt9w a5Q9f934CUKlVPKtiG42 Ws1ekGsfOPQvjSQItP6u qwqqg6xoceqjQdLm NALwRYp7EZp3AXLgsJik YyByJIP5UdP4HGT8tJBd bE1fhDlaapjmhS6xKej+ HTFuSVBzncI8D9Kt Fae2PDUfsRfeWI6upXPy PUwdEa0xkZjacHntWN6y VIWlqpfsKPImtK1fPUJm vGYsbPigWN4rYJIl gdiht273BqAtSRN0FGJi oZLzD7TquS1eWmJfXOKk ESEvT8XytWSmLYcmT837 QDxcYzM6PTLhwtFj U8DeHBBamIslUvK6m1M2 Tj4BZHeJUF97HO41gULa u7J9qDA8P0ToDRFjmsjt prnffUF3HGKwKPMb wG06jANrMAeaKr1tm8K1 b164YMSqGYBktE18Bp3k nRnfHBJyySHMaG7sukck t4vjndqbEgPwDJAd QIn4UFh8YPHsoPjxYcUv DCZ9AjT5JSY3uBHzgR5g yVztqqycpI0rZei+UmVj mXIznW8wRM68iOIv dNzgxjL6B5VrGyyvvGP+ UG19TVOgQJ11kAQnzHYq p7ljgEi5YiFdZRGiOZE3 gKyxGBvhg8GcJBNm T97veXEum6E4DVDwsIdv sNSuWkWbxKE5yU8xLHee kiibe3doprefOvclj0de zq04iR12K28wVVdd ZHRoPSIzMCUiIHZhbGln we9qnO0cDc7+PGNvbCB3 hMC9jC4vYsBzAhS7TJak S133ZkFbpDFmRprp f8plt6akdAd5LxMhEZSq xkAoxBgcNSM3f0VsNr77 M60uVIwaRPJhJXDlFCZk HMEjyIupwq7jwO2l Ii8+VG7uv4kcrz09jC16 dHI+YOSnHKP9sUjnJQmn YFUqjD0eCUieWaX1GERc KwZufB86gSJsZEik Mo3piRtqaFtzTM3jCRZz kwywk324AlWas5sjKXPu nARdIQkjLME3A13ho3Z5 ZEChFLIqKXK3kDW9 hE9seLgjmhxtcRZenKhe viJphQjwMFmzQEwaQ133 HKUipWfhTmFjfITaT6qy utPMVY7rTwljgSK+ QVPvYEM6vIboOXqxLQPr uN7uQCElI3y3MxAyKqH5 TSajD9YflnD4DSEuqXYc LGQdkCVKvR6rcfvd b2cshjnjUhLtAFLgLGc3 YDh9GZHkkIebHgJzVRT1 LmH1QYI8tEXnyU0jrAaf frbhtB5wLhz+RklO OjwvdGQ+UKKkRVJ7hOar GJjxEVEiuJ9tERLnK8o1 XzWkSgG2VJqgH6CihzD8 IGJvbGQgMTBwdCBU kZ2anghls8wtlqntZaVk ESVgCXa2FAw2WNVciRfi YpAsQLM1JjR2GWH2sIQl bG6foZzukualiD0j Oyc+TVJOOjwvdGQ+PHRk DYA7wAhrDDthREDgaE1a EMZmF6s4NoXwYhZ5LHbe U4GynmQ9ECFnkOId YUSotHLJlB5wsxole4ss cufuNhQhSFKyIZf6ZLm5 SZQugUdaAkFfZMO8GcT2 ZVY1pKRbxP1lwOjs fewqgO2fKgd+YMC8ISN7 ND67IM23G3QkMteseJEj bGU+PHRhYmxlIHdpZHRo PScxMDAlJyBzdHls ZT0 (more content not included)... [facility] Provider Orderson 05-17-2021 Provider Orders [id number] #[id number] [facility] Coding Summaryon 04-27-2021 Coding Summary HTMLBase 64 BuqixhhuTXr7jBf+PGhl YWQ+XO4EYVCtK80brCKi cM0OD8yLNY2KKRMHFBDY DQ8VVJ1kwVD4LCzgQ7Je biAv WzhwqJSuTB77XMi4TWK2 uJjjZUgqvZ2ddFLwE1z1 QeKfSC00cL41KBbiOHTq GyE6JyQewwcjzCBj E2wcMwGppYYkMgv+PHRh YmxlIHdpZHRoPScxMDAl GfNtfWtvTC7pUr2yDFKl LWNvbGxhcHNlOiBj r8nwDPCeGYdaNA1wkKiw Z9WsmMK6OBBmk1a6Pt06 dHI+OMLhZGA9pTgbHSgj t441VnJrs6izINI9 rJTaIXmvGCU3C62vs8L0 YRIlVNYcZMX6kET8jJ3g wMurzidaE0UeoWGpJwJ0 DAN8hGNbcM9wlDic xaccaL8zJeq+M26MZU9K LTOSEJ0YGlg5U3EyJunu dHI+MP92CNUfLI12eVJb oCSfu4sdaYq8IcUt ETQxVRX6pLlzWCepa6Wa JMNlQ96zaSFxs4I2DWOf uUeupOHxIkCttCD4mD5z LTlmyidbj1rqsmzn Yzrld8xrvl97hR32W01r YFjdUVGkTHB1TFYzIRJd rWhdfd0xrA5mIi9+IDxj i6bxn4yxnTa4TtAm OZTkjtKsyLpbYBB3z4Zz El12W8CnbObqt1GiPvv0 up71kFXwx1T1bWL5VKya SRHqnN3hZTnaMxC5 OVMoQfIfaI94cPAfPTek Wc0saDtohNibOG1pWDFe vaxkZCHouE6yGPHmdYMs iZmkEQ5rXPYnqwem w675TyTpETW5BVHyfSEm A3HplV9sYvIqXKZjDBLr X5HgdXCiYGskE058KAre FkX2TUUwdyHdL6Tf TQGwqCptReY6k7C1Oi9O a7VjiqsgOGL6DNrvLNN1 HfG1FqQmLjT6Y3VkVgq2 AVIbxCanNL2oR0Xg MEPoqczuogpfyDH3JONr TDZlsV60yNHiZLukDv4n m7G3f651SLZdMQCvlQ43 Nk0xdQbxTYXttCMJ lA6ijraka2ugquvfTuQz MBEfOGk1IZj3VTQgkVgi VaKoXAG4IhN9GLV1yTAo wN7onNmkztwxzM0y Oyc+V35ooY8eGBI6GKV1 jyjdYIIyazEtUY71YM33 V2BnVmqoeVUhsHH+PGRp ihBpuVzqCG6iJvXt e9ffb9HgHSffX1NhXKLp NUrkChr5YWAyFIA1dMM3 bK1aPARcKVjqe9H8gXM6 O4RckxTruy2yc0bp JLVmIVqkN95uvXLfz4B1 PPDxwDF7AIQldExmCmRe aS16Mbw+ONAtkNbll5Kr Oawbj7tzx9lypJo9 IjMwJSIgdmFsaWduPSJ0 l6WmWe74X26aIAgaRSRf ASNjVOPpHQDgqRvzuo7e wZ9gZr1+PGNvbCB3 jNL4mZ6sWMQgSrA9OCik J295NtRjjXAuFuxvx6nn j8qqkAw1QmFnCXKtsoRx sEwyPJZ2p4GgHg56 Y37mCYkbAHDaWXIbHQTw JVWnpShxbq8esM9qUr9+ XF7to8rlgh40xC25bGS+ CMYlPAI4lYppLVmj VMSsoO2zONlwCtT1LYZf EgGhzU83oBNnXUsnFp3v ySahcJawKN3xYUHzsvos b761IzIon1pbXSQe xGWtJOcaQYE7X13vn2Z2 KGJpGIQkBRZ8kTQ8cT4b bGlnbjogbGVmdDsgdmVy tZxeVJplBSpyQ036 IHRvcDsnPlBhdGllbnQg ZjEkNHf4T1LpDhb6LBYm iMtgAO9jmIIxQVwkYu8e xFaazXznMU2gTVNu rpuzh476GeKte6slMYPe pJPwRJnjHSC3O69dq8C8 WHSlUKLsLRK5hNP8iQ9e bGlnbjogbGVmdDsg vyKhhHeoKOjbSYpeO903 IHRvcDsnPkJpcnRoIERh vLZ0ML74IN63iLHjn9I3 gLD3X6ElWCYnpoeh dbauwLQ5CPAyUDZgnC42 Vu5fsHqpLu9rNHGxQSK6 ESNofLRlU1HslM4eNzAm WANgRMQfR3WemDYp PNutJ026DJftQhL2JSAd myRbA4KgUTDpaLlpNeX8 n3U7Wf4NX8T7CY71QT40 rLSps3X2oAF1A9Vt FHLfaszewapjvLX9CGPu SFBnjB93Yc8wzJjtXk0t BTTgWOG6GNPwlANwA9Vp rY4uIwYhVZChNXSd D9YzbYQdHGipD268VOze XmM7BXKekbNgZ3BhDVYs tIgmGbI4x6W8Vk4FVXy0 NZ22DB24rJZcx1J4 dZE3N0QjGNJaaqktnwzv zBJ8ZMWsYYHqhX12Be9g yMkyRx3fWXMpPGI3GYCl pUUfE9NpvU9jWnRm VZMqFDIxM8MqmWExHZiy E833ZKqaVlU6CACbwiTn U6SgICZgvTecYvZ0z0E8 Tp9UOSMpAL92FBO7 dBQ5UU94NG40H1NzUgvh dGFibGU+PHRhYmxlIHdp ZHRoPScxMDAlJyBzdHls XL4vMc5iJLZbQWNj zWmrnBHsVkGoy8ieUTBu ICmhXI6tcSxrJ0PlzPN5 CRRul3x6Tt72H73oY4Qi dXA+DFEmxBP2yGX1 kX3hZhHcLnB4BXlgX927 JvUpeXQtBetbm5zmk3jp pXz1IlV2HEFvimWgpIes HHP5k5VuKa26M01j IHdpZHRoPSIxNSUiIHZh cOqxlu2vwP4gMo5+PGNv nHI8eWU5rU7wUdTrZlI2 OIjhX801HpBmfOSs Pvlcp2lze2pchSk8HtLz IKIvnbDcoEibISJ7p8Co Xn00N4ClhFosf5ZpEer4 bb22tUCfw8O1mFR9 Y9WoBUPrpkrpxYEslYnk PH5jVIIlsipdBZTniQ0w NWRlR5d6JjVeJyX0EYop M7MclqX8LDHnnAPn ERalKSA8V73cl8U1MSMy CINwSWB6qCR7bM8dlMqx bjogbGVmdDsgdmVydGlj OWlrLIeyZ369XDZn qSfxSJYarM0wZHUtgTPb tDcwCF3oNCXezpbxSrSB K9KXG45PLTYLM7MRHrGh WGqIKE92M9EoEay7 UHPliWmpRA2kvEMiXRrt Zu2miUrtbOieMP6wSDXq peioJGQybR4xYMWovHYc oZdnUL2hSIGzpoja t659XeXgUMP7CYZlmNFq U9AcqJ7qQuGiDDCvINDh C7LnjULtFGztO808KUvq HtL2SZGqsoPaQ5Xt QNXuhSneJqQ4f3S5Vr2n PV4dEs4nEBD0LG87GK71 pHFrm2E8sWZ2M3FcABAc tkkgyisedKB7CCEk GUAuaO06xRXwRRcqCt2n d9F7q888KJUpTMSdaF70 Qd6seGzrMYDduMBHxX4m bsqvy8kgqadkOxVw PIWpDHf4GZn5NMPrbPsr GtIsGOL3AhE0VSH2qJWt cP8zlDqwhjtbaK8ySxi+ IHOoBPZzdtM9I2Ig Izy4QBDxyOrePV4dpQRp GZeiCx8zjMvdbTxgRV0q JDQrclqlKIOfeL5kFHDk uKPqrTjvNO2rBABk vwmrg838YfWfSGS6XFLz nPYkN1SvoF0jNqGrVOKx KGGqJ4JzhJRtGJdsS814 BBlnRmI2OMZnoxVp W8RtTOPspOjcGlK7t7K4 Lg5CYPcHPI76AL33pPOd n2W6gMB4C4VyJDSujymh fpmbxPE1EVEeQXBt wA12yEJtFAjpHz7am0F8 v914UMUmKDOhgU75Ox8x mUvjSGEdsZQSuE2aiazh t7jfcgrsWvIlYOVd XPf7VAn7UYFklDwnNbVi RZL8AvH4WZR8zEHmzL6s vNtcxzcwkF1fKiz+T1A8 A9XjFpwauWI+PC90 HJDgES14lUIihCYad3cu tJu4JlOgFIPxKMU1sXqy YSxym6YvBLQsD81jaIWs i9Y4PCVbhUvqgTPy QtBjgMY1sM9iOEeubszp k0nohjkkUtbvd8litn98 yZ75M79zDIeeGQZwTFEk CYVxKTBkzUqrjd1f rU6zWo7+PFMiqFK9eJM0 sQ1mOsSdZkX1DRfyR490 PtUoiDPpCfolm7eqw6ss wZr3KsQuTOSbrbDd jNrqWKD6a7QlTo87W08g IHdpZHRoPSIyMCUiIHZh bFrgtk9mhJ6wIt3+PC9j w3axqo38mN54vJC+ KRAzYAU4qJhdTXxcOBJn xO6cHCzdCgJ3DFJnEiCv fY74hLIoZUviLo7dbCuf wTctEE3zZMNwujan n696LqBqx0alVWFrsCIs AEheRHN4B92to6P9TPLx QBIjZMS4aBS2qJ6sjTnx bjogbGVmdDsgdmVy kLylLRpnATdbJ322OJWe hIqeYlKxjCKhP9ebcsEJ IM1uZsnteON+PHRkIHN0 bJeiNDsnWCAreX0e FKYuI3p4XmMiXpE8FGho P4ZginC4KUCrgGItLXZx mPNVeR9lwjfxp3suwncb CdNoHEJfJPg0RWy5 CZDthSqfJqOfHOF7JxH3 HUN2fHHyfQ6pqHivaiyi yX1fMeb+RklOOjwvdGQ+ CLLdMGO9vEjzMEhy CGFkoK6gGOZcI0t3OnGy KmH0QTfnS0FhbfG8MZOc hZFuDLEftYMXpL3dqgoj c7dmllmsMwCxMOOi ZHg1XLo0USFybDqmFpWg ONL1XbR2MCR7rWAmyI3n eYtgowuvrK0qLjg+TVJO OjwvdGQ+PHRkIHN0 pQgkXKwlWJZskT8kCVPf R2s0EbYhShN4TImiX0Va jhA1MNUbjAGtNYEsfEEY nC6jrcymb5qnlots UcMeHSPeNBh5XYs9GDGm mXerCyUaYFA9CuB5LJA4 rDNkpU9eqGljvrqtwW2q Oyc+JJV2GJX7WJ53 LJ32H7MgGyktkORsxPD+ PHRhYmxlIHdpZHRoPScx HYAkQjHjaOtfXU6dKm2e ZGVyLWNvbGxhcHNl OiB (more content not included)... [facility] Coding Summaryon 04-06-2021 Coding Summary HTMLBase 64 KvvrtozyMEj0yWe+PGhl YWQ+HD7VADIjX60spKCv uP2CT7zKJN7YEQQXETPI EH1UGP3yrOE4DNqiR2Lw biAv PrjwtEAhHN01RHz8GYH9 xIacWJrmrU6nrWVoC8c8 XpNpSC06tE73OKgeFZBr NkA5CaDtoikqvISj V5zpNrOpnHRmNdi+PHRh YmxlIHdpZHRoPScxMDAl DfUvrWobQM2oFt8xHKPw LWNvbGxhcHNlOiBj g0ycHEHgGHpoTN3ziBzo J7HagEU4LABqo2h5Fn70 dHI+DQXvQTK5nMzwEUup b923JuBkq7bqNCD9 fREtNSugRER1L41co4C5 VZLiGGPtWFZ9zRI8wZ8u aTkofvpvL3RloXPiYwU8 MGC6kBSglI9ydVcn pzdtwF2iGhg+C76EPQ9K ZQYBAF2YSyh5M9WfNois dHI+IQ46OKWsMQ52iUIr mDXmj5tovUd9VwPg NCHmCFH7mKswIHify5Dt YNRgJ07ttFTng0A6RYVy aJcxoWInMeWomNO9mP0a YUrfsyudf8tmover Abmrq3mycf66nT97R08l SEywCYWnLOQ3QNIkFBJc vKaraa3bwQ9kFu1+IDxj g1tgd6pzuJa0TtBq RHTytxMmfAulVQX0u7Jx Ii29Z1MlfEdjl2IeFzw3 va90oXGlo7G5iUO0ZPuo HOEzdF7zOJviJtI3 HNWqYxNsjB97dIYaBZnj Ux1rdSfpyAkxFN7tNDDs xpneOSZgaB9rOLVboDZp hKhhDZ8zUTXqtvdf n788YyMrKIP0EMImgJXv V5FedZ5oPqTkCYCnWWYt J9YzqOPlCTogA626XPrk EnC0IEYkdzLcS0Uf SXWziArqKeM1h6U9Hm1W w3UfivlpWYV7DCgvZNJ3 FoI8GfDsBvY6A1JmHfq0 ULHsrXavUA2kT3Bv CUBrqxteogzxjVD5FRMz ADWbyC45jBEoTMgwOk5u z4D9k512CNKpZYZtfP41 Iy6fwDfbKLVrcZOK lU7vgbhhs9mflpnnMlTk DXGdLTg0MWz5FOUmbUjy UgYxCTS3LxE0TWI5tNPd cD3cmWdeyoypkQ7m Oyc+U02ifV7bPWO7FIG5 ybfoSUJbzfJdYM32EP68 Q3ZpYznxgLZrfUK+PGRp yeKmfZdvKN6nPpPe d8ger2ErBYbdW4PwUSAn RMtdWvs1ZZCbFAT1oFA1 bA5tXDYhHAcvq0F0tRY7 T1TysiInep3im7fw DYJuVLocU29rkBUrx6J3 AGNdzSV0UPAgaVphZkNi iW82Ojj+TPQspBptx5Xl Vyvsq8lou1emjBc8 IjMwJSIgdmFsaWduPSJ0 s0EaVn92G47rWRgwYCLo OOIsRJFnIZYkdDvrkq2p lK7zDq8+PGNvbCB3 fRO1wP7sHFJvTgI6DOor J068NwGgjYNqGcneb7er h4oecVf3KrYcRNDsrqIg yFsbSLJ5p5UjRy87 P03kMFyuRAPsIJNdACYj PTUuwSkivo4zrG6lWd9+ EL1no6qtcs89mF92eOJ+ LLRiUZC1wZklTYdb BCBtdU5aQUnrAcH6ARXw LvTmdG03mCPlHWtvYq4e gXkefJcvVK1oSSDhnavm u342NmPtw1twYIDv pMYhVBpgPSV5E70dr8O7 UPUkBANlSJE1rDU2qK0e bGlnbjogbGVmdDsgdmVy fPxvFNnpILekO656 IHRvcDsnPlBhdGllbnQg ArNjWBq6E1UaObp8WDJb iRkyVR4jqUXqOFpdWj6g nLabnMseZR2pSDAa wcgia921CxJyk6faRGEe wRSrSAqvXVV0A52lj2H3 JIUaLAJrKZV2xIL3aG0z bGlnbjogbGVmdDsg imGzzLukGLvxDShpJ510 IHRvcDsnPkJpcnRoIERh pXY2XF77TE57qSSvr6S7 pOB4C9JvVCDzixkc kegvwOP6QEHnQZMjsJ42 Pn8izEueUn8nISRhVOY6 XRPjiWRbP5FliE1gTqJm LNXaIXFqK0KprOTr WAsiG635BAhqYtQ1HKBp cvVxN8IdVPNbeZjeWaX7 i5M6Iy6FM9X1UD74BW00 bWZqk6T8jBU6J4Mu DVOiqsmauirxoMC5NAAu CCXfuC62Rs7fjFzvFv3g LCJrYIB8XQMstIRhG5Jd dJ0hEaLbGRCiXYYn X0LkwCVnTYzzN006IFus SvN9GXYrqlPzF1MyAAZy wKbsWvN3g3O8Nm5YUCr4 QK43GF97dOSoe1M0 aYC7G3WoIQZaclgkwpbn vKK0ZERcDFGsaR34Vz8c sSnfAv8jCRZgIAS8JHYb dXPwZ1TipI0gNyWt SXByUPWgX4SprIMwFSep R720CQseVvO6YTYvpzWn R8DyTJFrdOtpWuN1k3S7 Oj9KWEBrPR37IJB8 fPX6SA31BY02A6RdVvau dGFibGU+PHRhYmxlIHdp ZHRoPScxMDAlJyBzdHls VF0hYg6eQJWtADGk uEasrNLnCkGtq9plNAAp XDvgBQ2pfHckS8UvjTP6 ZFIme5p8Tg04Z68bQ6Fj dXA+SAXybSF0nTO0 lX4uNoFhYeQ9LYsvP409 AnMuoYXyWniog3nyy5lm rBb2JuD3WKDcvwDqiQpk CBS1w3PiOk57I58a IHdpZHRoPSIxNSUiIHZh kHvwht1ceD2lVj7+PGNv oOM5oBM3mG5vPwCnPtI7 EOmsT181TkIlwASv Lxcdb2nmq6oieBb2ApGe WAJlzzRdmTlaGDD3a8Xx Qm65P2LazGfus8BxMhr6 kf84dZXoi9G6rBP8 W5PdTDQottxinMVssQnu QV8gZANtnxekSCQalH5i FOPyP0z4EeKsZdM6IOmh Z6UtbsI2DQNbqSWp JOfmKTR0T79ha6L8EFJi ZWIoIYS3wFB3hL0moRzg bjogbGVmdDsgdmVydGlj MOheNElwS009HWYt fGneVLJryH0fVKLqeTPo gNeqWS7tNKOdfbzpJlUH K5URQ48JCRLXF0QLSyUa QKvVLB17W7HrNdl5 KQChoPunNR2rrXAvMLzu Lf7nzTxeqVlyLW1kONQp ngyoCGQoiD3lBIOuvEWp uYvuKL4pAXVhgluz o294RcXvPKG7DEFcrRFi K2XfpR0iVdBiPDIkEQYg I3LomAVtAGjnH540XJwk PrX2CFHcksVwU3Gb GFHnmAwyLrB0r4H1Ed9i NC4cFv1dNPZ6FS94GP91 mLBfu9D5cCM4Z0IiDPAc xwsoddxpmAO1FRQh BEXnkW99oKRzYGoqGv7v y8Q0a788IWKfKTKshK40 Si4cmDnqTYCaxPLZnA8e rjwyf4ofcmtsWrYb FPFeVFq8HEh0CZErpRvj EpZkUCB5PhA4NYB5rVLl aI0ktFvwivpxdS6mZmz+ OJMgSISxyeC9Q2Oh Jho0GODyiEosCM0nqBFa VIinRp5quVgtxYmdSV9q TGBplkrsVXMgpQ1rSURx wOZbyZpuEQ8fPFAj ssouy273CzGiUQS0PEIv kXBsL9LthQ6kHzRaPTTe FWAsV3BmkODwPLdqG656 DNjaObR9TKOxxcNv I1HhQNBurDijXgX7x3C6 Oz9IDHtCCI77DB35uSCt f2Z8sGG0E8JvNMMibksu izoqjUM8WGYpWAXh bN26iORrEHlwGy5bi9S3 s321ZRKcPYAwwN94Sd3h rUwtHCGarJBCnK9mmygm o8uwdqetWgZnLKLw WPy0SEv9TWNtcNzoRlQm RZC8HpR2SLO9tHNboK1b kXhiimalvK5sIhu+RW1l krrjwfW4QJ47UP88 Z7ChTdjtlBGxvRY+PHRh YmxlIHdpZHRoPScxMDAl ZfBgoYpsIT9hKw7lSQPy LWNvbGxhcHNlOiBj b9ivJZCkPHunKC5ncLff O1GizTF0QMIto1c5Fq32 T98bX0DkbFT+PGNvbCB3 cQQ4aC6fAxXoTvB7 KBumZ139IiTdeKVhYlgm e1qdt3wbiBl0JsTjCXWm tjHtxKqrSHG0t0BtJd43 Z45rXIgcGPQsUSLq REErLYUdrTdbum2gcD4c Ii8+GFCpaZH8yUD9qA3h LbZoPmU5XQmbU554JyBu aQGxJpcyI30bG4Rf dXA+AQYbYys0PNQojXhi OW6xqMIpPGgtXn3nAOP1 ToWkEzObJMjpK8HhJERi jbvljrlmeIF4MTJb DIYemN29Zq5baQldUw1f MMSuANL6PESpmOBiT5Nm tF6kZhFhURMnRCBxY6Bj oRUeMSkhH584EUvq NjM2VNLbwzJwS5MrKCPz hAkqUrO1e0J5Ch9OnExo zYSxLS4yAjHdIRi4Z1Wp Tog1IVFwnBczTT2d xSMzXFgoBl7jlLlucApv PC6rSUSdwidlh646TkMf s3trLTYlyCMbECvzEZZ6 N98zc5W5FVLaPSUz FVE9zIR3kI5wkIeocqfa bGVmdDsgdmVydGljYWwt HCtaA047AQGblRsmAdOI Xas6O1IdOob7PSXu uKzlKW9rjRTyAZsrOc0h gYhpeZsxZD4sXGAcpyje a260ZrFjc2wcDKGcfCZd FRigWTV7A56me2Y7 DKGyNSUlRSA4yIV2aJ5l bGlnbjogbGVmdDsgdmVy iQgnDNvgAAwfQ293IYIj xFwgKe7CPks4U0Fi Jbp3HMYdgQisYY8idPRh EMfqRv2jdMmxdMscQK5w VHWcycyok826TuFct3rm IDEwcHQgVGltZXM7 L84qm6N9GVCaFYDbDNH3 cHZ9dN7pqNssbysscFPf dDsgdmVydGljYWwtYWxp T250ODOmnIueJtYs eWVyOjwvdGQ+DM19kx70 L8MkFzwaNiw1UQAxEYH0 wQN7wH5aUFNzXJycf7T6 xBD0J4JqeiRsad9w b2x (more content not included)... [facility] Coding Summary HTMLBase 64 SwebuzuqUPn4cOu+PGhl YWQ+TC0WCGQmF04dfISa oQ5NS0cDBC6JYJBDEWGQ BD7LVB0bhDU5ABjxR3Mz biAv EtaymNZjOA26LDw8HGV6 eUkgNAlvwH9piEAsP0w2 YtOyNH72nO88MLtfEEPj GlF3JcUbyxpudKBr S6kyBuPgnOYhOop+PHRh YmxlIHdpZHRoPScxMDAl TkCozOecNU8xPm2xTWTn LWNvbGxhcHNlOiBj i5quVMJtODfqFU5mdSex B9MztMR0NEVbp1i1Fn23 dHI+LLGjENH7rTqgPSut f499HgPuc9zpSMD0 nDFyDJqfEXA3E67th1I0 UPYfLZMrHEK8vJK4nO7l wMkmqfnvX4MeeAQjWpX5 GJT5bYTseW3jcPpj dtxtyS2fImq+P52LCY8U GAFUID9NPjr1K3EtJcqw dHI+PI71ADIoCA21jXXv cWZsb5hnvId1ZaMe GOSdEXE3zDsbKUcxn2Zy YPWoN77xnQIgm2P3GOVx eKperORnKiXkxNB1tV8c GGdkuwkgv5vwtgeg Dpult3awfl25tF95W04m KPbgSTBxCPN0GTErWEDs gRfjxu0bjQ7bVc8+IDxj g8bjp9qbxZp8FpWl IIGuovZbuGgrLBS7j9Jv Sc06K0MrxMwdl6DwQgt1 wx89pKGmv1X5gLT0KBpd CEUtgA2gPXacDuJ5 VQGxAyCidY12rZDhKSsx Qy2ayPibjRerSL1gRVGq ufmkKSMqxK4lLNBriLKm tVifFW0pLTWklpak y135WjUoDVY5QTTvvBMw S9WepJ8iNbCsZOJtKNNs O6EzaMVdOCytX031GQkw WhH7OYLlcvLaK0My WJUwtAjzDaA1z8M9Zl2Q p5JffjorAQV0GLjrITL5 KlE2QeWgSoO5X6GyMfn5 GRGdiHihZD0rN8Vz SCPrqsrukctnnAW9ESJi TZZkvU18pESfYDwzOr6s n2F6e697YKAiNWZvzM12 Gy5joZiyFIYkeLMQ lR7zfhtlp8yhitvuIbLd EKXjWQj3KKx8BWZzmNdz LfDtNOT2TiR0FRR9jBZh rT0bhCakbkdpqW3g Oyc+L85moW5kKFW2YEP8 gciqCUWzztPpRR62ZD82 Y9SrBydpoTPjzMB+PGRp qrMsgYioPZ3dOeDq t0lgo3DdGFjlX6KuGVXu ZRbjJnw9SQYfMSM2zBY7 dB2uXHBtOLgbb8U6wMC5 U0OiohXetb7pa6uh ZMSmWOltL61neOEyo4D0 DIOanMD7FXMdjFucYrWe mW70Tis+MMRgsJxsr6Hu Vvpqt4rkl2shiFk3 IjMwJSIgdmFsaWduPSJ0 c7UiEp70L29rMYphWFMi FJHaIIVlBHKycTqgtg9l iN9dKq2+PGNvbCB3 dZS3sA5wJAFuJhU8LEcw U785RjQirVKxAubao4rj q0bopDo0MpNvZFEguyKt fAtdKRL8b1IwKa84 N08rTRnjHUJyROYnOIVv ATFbtVqsdg4mvC0mSt5+ GG9vh0gxht98uF88eDN+ PVXdKCY5vNukPIfj MBPczX3pQJndYhJ7JUVr IkAvfW53mUZiSTxqZq7w bKiqkGokBG9zDMRmoobf h540VjXzh5fdHDYb zMGzAKzdENP2B40xs2J3 QWEeNZRbTMP3rQV5uW9a bGlnbjogbGVmdDsgdmVy uUplODjjFWxnL439 IHRvcDsnPlBhdGllbnQg SzKdPVh3I6WzUes7PXGl cOdmMX7xxTNlNVyuCp4e fBomiXmxUV1bZRBm qcpkd713GwTqy8eaQNWa hMTzRCkvMOP2N66mp4N5 PDRwCBVyCNJ6jPU2bM9l bGlnbjogbGVmdDsg ckRgcUoiEDegFHdtC993 IHRvcDsnPkJpcnRoIERh wQY9EP53BA16oKZru7I8 tJV9C9SuSNAjabqz dypdtHV2HRMsIQAbnO90 Xc4eoHvbRe2jQSMdRLY2 KCRkxRFuP0NzdY3tReBu GMWkBBIlK7YjcCZv ZDjhK512MZxeVtP1TQDd plKdS4QyCJEgqUezHwP7 i8A5Ro9RL9G9CB84CV22 cIUcz9Q6pLH2D3Cl MUVhiofugbygfAZ9ZUIq ZATknF10Aj6cbFjkBv9v XLDvHHX7NCOdmMDeF3Kx bV3fKbMpDWTxEPMa E5UusECkBQjmZ246LLxb UuU5BAZcqoApT8BqCJSb pJfpIzB8a6D7Je5STGq0 IU47NQ92pROmi7C4 rYG7Y9TyTDCuglvdwzlb oED5ROHwHBWahX01Fl4y nCekEe7iJMSpAMA5IOUf eWRiA5UjxJ1pQeOs HSFlAQLkI9KkoGRpHDjl I686VAthEaR8FIQomqJf G2PeQAQhtYkrElQ8q7P7 Dt3LVCHeLN92OJK9 yUU6AW24LK11K5QmIreu dGFibGU+PHRhYmxlIHdp ZHRoPScxMDAlJyBzdHls JF9aJj1sJFRvKOMg rWcxxLWfDrNdj6rnVLWg RSahNJ4nyIluQ2MctNV7 MLHhz0h8Lz28R57eD6Ga dXA+ZOPgoFC8vTC4 uI7eLmKlXsQ1LZsmK169 BvVjlZRkEgzai4xce5de pXc3VbG0FREkizCxbTwk SCC2b3LiPa85R34s IHdpZHRoPSIxNSUiIHZh wIjoep8pfD6jOk5+PGNv yIH4xZX3bP6dWyErXaM1 RUtmC509RsYizJAd Uknaf6fuf6wcxLv0JcWs VUHubgEptNkaZOB2r5Dw El73T1QanJhbs3AjFft6 wt30lFOlx2A3yBX3 G5UaODLzrtyrnCRlmXsc MY3iANFibbojUACzzA9x QIIoG4j6SaZwGlK4UBhl I6KklkQ7ARRpdPTj JOtrUXZ1B26tl2Q3MMMv YRXfLPS8gNM8iE7qoFuw bjogbGVmdDsgdmVydGlj WAybDMidQ379OYQo dZjiRIRxzR5xAIKphMVp pKttPD8rJECpbenfWeRO C1KBT86KNYWMO2UBDlRd ELpEFP69I8SlWbn6 DCSorXzyTD1ghJQnZKqc Sh2meRrigXlbOH8oSAUl lbgvPDNxsQ0zMGPorEOy mApjNI1tJYBozhxm h110LkAfSKI3URPwiDYg O6VhdN8cYxMdUFXlRCVh U3JscYZdNJpyR742NVqr UbY4JKKpglPrW6Xk APIqgVhzAsX9f7N9Iq0l ST3qVr7sCAO1IA36XR64 lOTxe9B9dYJ8I2JdVAPt dohkdsppvQU6JHIg KNBlfO41gXDfXDqbVg1v g7Z3v260BZGnMHMkoE09 Ji0yjQwiUBJfvGRBdM7r bdayz1yetoimOvBp EUOkUDf6IFm0PNXgeVjn JcRyJYE1VrH7UNA9yTHm dB7pgNfzawqroP2xUxf+ IDWtYQNlwjA4B8On Trn8DRQdhVblPD3juSGl PHxmHf9ssZktqLqpCH1p XYTubfhzKWAxxK3lRTJg bGNtaTueVF5vTIFq hcypf692PdErZKN0RRRe hAPsX2KrzK8oShRaUZDx MMVqH2OwxNRpLYgyH370 IIenZcD3JCDqehRq N4EsZBVqgItnRxJ2f7Q0 Ri5GHUxDUU28EI46jUTg c4A5fCQ0Y4ZoMWXlthfm wfcmfOW3MSBcGXLs aL05tKLfUClsCz7eh6Z1 q228GNHtMNVkzV70Fo8g jOfdXTYzxHORmI1mqysa o4tqubqhJeAmKYVa VLk2FXj3PDVhcKczRbUn RMA0ZrE8XZV3bEGhqU3o aIbanznpcD6zKzb+RW1l tugdydZ6YE00LP45 H4UqWfdjoREhrQI+PHRh YmxlIHdpZHRoPScxMDAl StRhiBduFX6lUw2mMEZe LWNvbGxhcHNlOiBj h6ccPCDxYWwrTF9biVlf V4TidLF8NWClu7p3Ub36 I72iA2FfyXN+PGNvbCB3 eNZ7cT4cPzFbEoP8 ETceN027VsSqfRVzYhmj r2lqf4qhwJn4AuBbYAAv ztIdcSucTQC5c7AhTg86 N53cUCoxPTXeNFWs RKBxGVKcoRqtbe5ckF3w Ii8+BSSijLG6kNW1oA5b CvOyThO4QBhsZ505EcHb yNKzSzasB99mG4Gx dXA+SXJuXbi7FFPkoDul QP8miWGiQAjnQs4oHQD7 AlWdTxCaGBgzH7YjUMIb qalwflfesVA1RIVt AEUsjX89Sh6evGjlVl7j KNWsZWN2GBKlaYVnK9Ee iP9jJlYeUUWzPVNyF6Yt uUUoKPacF433MQvg CzP9BNQyxyGbZ5OdAWXv yQymErW4l2C9Ub8RyZwt lFZyQF3oRyNuXTw4B4Cs Sjd2UNRzbNimQA5q eCRtRZuwHm0plKxmwKst MW1lAUHjczduh421ZaPg x7ycYREwlFHpDAwwKWX7 B35su4N4RGGlSNAs RWX8qCB9dJ2jjOxcyzhm bGVmdDsgdmVydGljYWwt IDpfS258FOArxCrmUeQO Yfx8I5TqGra4MSRt hCbqCT8dlYOuMWdmNo1a vJlgrJkkGK5pOEUnuxen z376JoQep3bmULKqkDLp RJldQPB7M83ca7D4 MRJkMPXmJAN4yYS2nW0v bGlnbjogbGVmdDsgdmVy jLhsMNivVQvnO201ZDEi pGxjDi4ZZgg4U5Pl Euk3EKNdcAucQD8asOEh IXebPq2miUkngQcjPM1o ZYAzymttt028MxGzi5ha IDEwcHQgVGltZXM7 X72zg7E6QYKyRFBeQWD4 rAJ7tL3thFqbkvvhfSOd dDsgdmVydGljYWwtYWxp V297EBRdqFipHxOu eWVyOjwvdGQ+BB15lw50 K4VyMekaWiu2TUDjGTY7 oBM6sG6qMMSfXBvec6R6 lEX9Y9ToudKwwn7m b2x (more content not included)... Normal [facility] ED Clinical Summaryon 2020 ED Clinical Summary [facility] - Emergency Department [address] [place] [id number] ED Clinical Summary PERSON INFORMATION Name: ROSA EASTMAN Age: 55 Years Sex: MALE : 1965 MRN: Acct#: Visit Reason: Hand pain-swelling; RIGHT WRIST PAIN Arrival: 04/01/2021 19:05:43 Discharge: 04/01/2021 19:35:00 LOS: 000 00:30 Check In: 04/01/2021 19:05:43 Checkout:04/01/2021 19:35:00 Address: [address] [place] [address] PCP: Provider, None PROVIDER INFORMATION Provider Role [...] Follow-Up: With: Address: When: Andrew Mckenzie DO [address] [place] [id number] Within 3 to 5 days DIAGNOSIS: 1:Sprain of right wrist Patient Understands: Yes - Patient/family/careg iver verbalizes understanding of instructions given Comment: Normal [facility] ED Patient Summaryon 021 ED Patient Summary [facility] - Emergency Department [address] [place] [id number] PATIENT DISCHARGE INSTRUCTIONS Patient Information Name: ROSA EASTMAN Age: 55 Years Date of : 1965 Reason For Visit: Hand pain-swelling; RIGHT WRIST PAIN Arrival Time: 04/01/2021 19:05:43 Primary Care Physician: Provider, None Attending Physician: Medhat Hernandez MD Comment: Visit Diagnosis: Diagnoses This Visit Hand pain-swelling ([id number]) Sprain of right wrist (S63.501A) Prescription Information: If you have been given a prescription for narcotics, seek immediate medical attention if you have any difficulty breathing or any sudden status changes such as confusion and sleepiness. If you or anyone you know is experiencing suicidal thoughts, mental health, alcohol and/or drug addiction problems; contact the [facility] 02/06 Crisis Hotline -Text 5ENAV hw 979744. If you received any narcotics, sedation, or [...] documents With: Address: When: Andrew Mckenzie DO [address] [place] [address] Within 3 to 5 days Medication Information: The exam and treatment you received today in the [facility] Emergency Department were for an urgent problem and are not intended as complete care. It is important for you to follow up with a doctor, nurse practitioner, or physician?s diploma dental assistant for ongoing care. If your symptoms [...] so we can reach you if necessary. [facility] Emergency Department has provided you with a complete list of medications post discharge. Please inform your manager labor delivery/provider of your visit and for further instruction on these medications. Any specific questions regarding your chronic medications and dosages should be discussed with your primary care physician(s) and/or pharmacist. Medications to Continue That Have Not Changed Other Medications acetaminophen-hydroc odone (hydrocodone-acetami nophen 5 mg-325 mg ([place] 5)) 1 tab(s) Oral Every 6 hours [...] With poor (more content not included)... Normal [facility] Vital Signs Date Time Vital Sign Value Performing Clinician Facility 12-28-2024 13:00-0500 Body height 172.7 cm Charmaine Lowe PA Work Phone: [facility] 12-28-2024 13:00-0500 Body mass index (BMI) [Ratio] 30.87 kg/m2 Charmaine Lowe PA Work Phone: [facility] 12-28-2024 13:00-0500 Body weight 92.08 kg Charmaine Lowe PA Work Phone: [facility] 12-28-2024 13:00-0500 Diastolic blood pressure 78 mm[Hg] Charmaine Lowe PA Work Phone: [facility] 12-28-2024 13:00-0500 Systolic blood pressure 132 mm[Hg] Charmaine Lowe PA Work Phone: [facility] 12-14-2024 14:15-0500 Body height 172.7 cm Hilario Small MD Work Phone: [facility] 12-14-2024 14:15-0500 Body mass index (BMI) [Ratio] 31.02 kg/m2 Hilario Small MD Work Phone: [facility] 12-14-2024 14:15-0500 Body weight 92.53 kg Hilario Small MD Work Phone: [facility] 12-14-2024 14:15-0500 Diastolic blood pressure 78 mm[Hg] Hilario Small MD Work Phone: [facility] 12-14-2024 14:15-0500 Heart rate 91 /min Hilario Small MD Work Phone: [facility] 12-14-2024 14:15-0500 Systolic blood pressure 136 mm[Hg] Hilario Small MD Work Phone: [facility] 09-06-2024 13:16-0400 Body height 172.7 cm Cnadida Sidhu PA Work Phone: [facility] 09-06-2024 13:16-0400 Body mass index (BMI) [Ratio] 32.54 kg/m2 Candida Hill PA Work Phone: [facility] 09-06-2024 13:16-0400 Body weight 97.07 kg Candida Sidhu PA Work Phone: [facility] 09-06-2024 13:16-0400 Diastolic blood pressure 80 mm[Hg] Candida Sidhu PA Work Phone: [facility] 09-06-2024 13:16-0400 Heart rate 59 /min Candida Sidhu PA Work Phone: [facility] 09-06-2024 13:16-0400 Respiratory rate 16 /min Candida Sidhu PA Work Phone: [facility] 09-06-2024 13:16-0400 SaO2% (BldA) [Mass fraction] 99 % Candida Sidhu PA Work Phone: [facility] 09-06-2024 13:16-0400 Systolic blood pressure 120 mm[Hg] Candida Sidhu PA Work Phone: [facility] 12-09-2023 15:33-0500 Body height 172.7 cm Hilario Small MD Work Phone: [facility] 12-09-2023 15:33-0500 Body mass index (BMI) [Ratio] 31.02 kg/m2 Hilario Small MD Work Phone: [facility] 12-09-2023 15:33-0500 Body weight 92.53 kg Hilario Small MD Work Phone: [facility] 12-09-2023 15:33-0500 Diastolic blood pressure 78 mm[Hg] Hilario Small MD Work Phone: [facility] 12-09-2023 15:33-0500 Heart rate 79 /min Hilaroi Small MD Work Phone: [facility] 12-09-2023 15:33-0500 Systolic blood pressure 130 mm[Hg] Hilario Small MD Work Phone: [facility] 02-20-2023 14:00-0400 Body height 172.72 cm Josué Evangelista Other [employer] Other 02-20-2023 14:00-0400 Body mass index (BMI) [Ratio] 32.08 kg/m2 Josué Evangelista Other [facility] Other 02-20-2023 14:00-0400 Body weight 95.71 kg Josué Evangelista Other [facility] Other 02-20-2023 14:00-0400 Diastolic blood pressure 80 mm[Hg] Josué Evangelista Other [facility] Other 02-20-2023 14:00-0400 Systolic blood pressure 130 mm[Hg] Josué Evangelista Other [facility] Other 01-22-2023 09:40-0400 Diastolic blood pressure 84 mm[Hg] DO Britt Rumschlag Work Phone: [facility] 01-22-2023 09:40-0400 Heart rate 70 /min DO Britt Rumschlag Work Phone: [facility] 01-22-2023 09:40-0400 Respiratory rate 16 /min DO Britt Rumschlag Work Phone: [facility] 01-22-2023 09:40-0400 SaO2% (BldA) [Mass fraction] 96 % DO Britt Rumschlag Work Phone: [facility] 01-22-2023 09:40-0400 Systolic blood pressure 136 mm[Hg] DO Britt Rumschlag Work Phone: [facility] 01-22-2023 08:47-0400 Body temperature 98 [degF] DO Britt Rumschlag Work Phone: [facility] 01-22-2023 08:12-0400 Inhaled oxygen flow rate 10 L/min DO Britt Rumschlag Work Phone: [facility] 01-22-2023 07:35-0400 Body height 172.72 cm DO Britt Rumschlag Work Phone: [facility] 01-22-2023 07:35-0400 Body mass index (BMI) [Ratio] 32.4 kg/m2 DO Britt Rumschlag Work Phone: [facility] 01-22-2023 07:35-0400 Body weight 96.8 kg DO Britt Rumschlag Work Phone: [facility] 03-13-2022 11:45-0400 Body height 172.72 cm Harvey Holt Other [facility] Other 03-13-2022 11:45-0400 Body mass index (BMI) [Ratio] 32.23 kg/m2 Harvey Holt Other [facility] Other 03-13-2022 11:45-0400 Body weight 96.16 kg Harvey Holt Other [facility] Other 01-14-2022 14:30-0500 Body height 172.72 cm Harvey Holt Other [facility] Other 01-14-2022 14:30-0500 Body mass index (BMI) [Ratio] 32.23 kg/m2 Harvey Holt Other [facility] Other 01-14-2022 14:30-0500 Body weight 96.16 kg Harvey Holt Other [facility] Other 09-19-2021 11:00-0500 Body height 172.72 cm Harvey Holt Other [facility] Other 09-19-2021 11:00-0500 Body mass index (BMI) [Ratio] 32.23 kg/m2 Harvey Holt Other [facility] Other 09-19-2021 11:00-0500 Body weight 96.16 kg Harvey Holt Other [facility] Other 09-19-2021 11:00-0500 Diastolic blood pressure 87 mm[Hg] Harvey Holt Other [facility] Other 09-19-2021 11:00-0500 Systolic blood pressure 130 mm[Hg] Harvey Holt Other [facility] Other Encounters Encounter Date Encounter Type Care Provider Facility Start: 02-01-2025 End: 02-01-2025 ambulatory CHARMAINE LOWE Not Available Start: 01-31-2025 End: 01-31-2025 ambulatory Richard Lezama MD Facility: [facility] Start: 01-25-2025 End: 01-25-2025 ambulatory MANI CARPENTER Not Available Start: 12-28-2024 End: 12-28-2024 Bamboo flowsheet Charmaine Lowe PA Work Phone: [facility] Start: 12-28-2024 End: 12-28-2024 Bamboo flowsheet Charmaine Lowe PA Work Phone: [facility] Start: 12-28-2024 End: 12-28-2024 Office outpatient visit 25 minutes Charmaine Lowe PA Work Phone: [facility] Comment on above: Radiculopathy, cervi alex region (Primary Dx); Memory change; GIRMA (obstructive sleep apnea); Balance problems Start: 12-28-2024 End: 12-28-2024 ambulatory CHARMAINE LOWE Not Available Start: 12-14-2024 End: 12-14-2024 Office outpatient visit 15 minutes Hilario Small MD Work Phone: [facility] Comment on above: Benign localized pro static hyperplasia with lower urinary tract symptoms (LUTS) (Primary Dx) Start: 12-09-2024 End: 12-09-2024 Telephone encounter Teresa Mendoza LPN [facility] Start: 09-13-2024 End: 09-13-2024 ambulatory Richard Lezama MD Facility: [facility] Start: 09-06-2024 End: 09-06-2024 Bamboo flowsheet Candida Sidhu PA Work Phone: [email or web address] Start: 09-06-2024 End: 09-06-2024 [employer] Candida Sidhu PA Work Phone: [email or web address] Start: 09-06-2024 End: 09-06-2024 Office outpatient visit 15 minutes Candida PUENTES Work Phone: [email or web address] Comment on above: Balance problems [...] urinary tract symptoms (LUTS) (Primary Dx) Start: 10-15-2023 End: 10-15-2023 ambulatory [facility] N [facility] Start: 10-14-2023 End: 10-15-2023 ambulatory BRITT RUMSCHLAG [facility] Start: 03-04-2023 End: 03-05-[address] DOCTOR GARCIA Facility:[facility] Start: 02-28-2023 End: 02-28-2023 ambulatory Josué Evangelista Other [facility] Other Start: 02-28-2023 Telephone encounter Josué Evangelista [facility] Start: 02-20-2023 End: 02-20-2023 ambulatory Josué César Other [facility] Other Start: 02-20-2023 Postop follow up vis it related to original px Josué Evangelista [facility] Start: 01-22-2023 End: 01-22-2023 Admission to same day surgery center DO Britt Rumschlag Work Phone: [facility] [place] Start: 01-22-2023 End: 01-22-2023 ambulatory Josué Adelaida César Facility:[facility] Start: 01-22-2023 End: 01-22-2023 ambulatory DO Britt Rumschlag Work Phone: [facility] Work Phone: Start: 01-13-2023 End: 01-13-2023 ambulatory Josué Adelaida César Facility:[facility] Start: 01-13-2023 End: 01-13-2023 ambulatory DO Britt Rumschlag Work Phone: [facility] Work Phone: Start: 01-13-2023 End: 01-13-2023 Patient encounter procedure DO Britt Rumschlag Work Phone: [facility] Work Phone: Start: 12-06-2022 End: 12-06-2022 ambulatory Josué Evangelista Facility:[facility] Start: 12-06-2022 End: 12-06-2022 Patient encounter procedure DO Britt Rumschlag Work Phone: [facility] [place] Work Phone: Start: 08-10-2022 End: 08-10-2022 ambulatory [facility] Facility: Start: 07-08-2022 End: 07-08-2022 ambulatory Candida Sidhu Facility:[facility] Start: 07-08-2022 End: 07-08-2022 Patient encounter procedure [facility] [address] Start: 06-21-2022 End: 06-21-2022 ambulatory Candida Sidhu Facility:[facility] Start: 06-21-2022 End: 06-21-2022 Patient encounter procedure [facility] [place] Start: 03-13-2022 End: 03-13-2022 ambulatory Harvey Holt Other [facility] Other Start: 03-13-2022 Office outpatient vi sit 15 minutes Harvey Holt [facility] Start: 01-14-2022 End: 01-14-2022 ambulatory Harvey Holt Other [facility] Other Start: 01-14-2022 Office outpatient vi sit 15 minutes Harvey Holt [facility] Start: 10-16-2021 Admission to [facility] Harvey Holt [facility] Start: 10-16-2021 End: 10-16-2021 ambulatory Harvey Holt Other [facility] Other Start: 09-19-2021 End: 09-19-2021 ambulatory Harvey Holt Other [facility] Other Start: 09-19-2021 Office outpatient ne w 45 minutes Harvey Holt [facility] Procedures Date Procedure Procedure Detail [...] [place] [address] [place] [id number] Charmaine Castro PA [address] [place] [address] [facility] [place] Start: 01-25-2025 End: 01-25-2025 Patient encounter procedure 01/25/2025 11:00 AM EDT Procedure Visit SAMANTHA ELLIOTT [address] [place] [id number] Mani Carpenter MD [address] [place], [place] [id number] [facility] [place] Start: 12-28-2024 End: 12-28-2025 EMG 2 Extremities EMG 2 Extremities Neurology Routine Radiculopathy, cervical region Expected: 12/28/2024 (Approximate), Expires: 12/28/2025 [facility] Work Phone: Comment on above: Expected: 12/28/2024 (Approximate), Expires: 12/28/2025 Start: 12-28-2024 End: 12-28-2024 Patient encounter procedure [facility] [place] [address] Comment on above: Arrived Start: 12-14-2024 End: 12-14-2024 Patient encounter procedure 12/14/2024 2:15 PM EST Office Visit [facility] [address] [place] [address] [address] [place] [address] Hilario Small MD [address] [place] [address] [facility] Start: 12-09-2024 Adult BMI Screening Adult BMI Screen ing [facility] Start: 12-09-2024 Tobacco Screening Tobacco Screening [facility] Start: 12-08-2024 End: 11-08-2025 Prostatic specific antigen, diagnostic Prostatic specific antigen, diagnostic Lab Routine Benign localized prostatic hyperplasia with lower urinary tract symptoms (LUTS) Expected: 12/08/2024 (Approximate), Expires: 11/08/[address] [facility] Work Phone: Comment on above: Expected: 12/08/2024 (Approximate), Expires: 11/08/2025 Start: 09-06-2024 End: 09-06-2024 Patient encounter procedure 09/06/2024 1:20 PM EDT Office Visit [facility] [address] [place] [address] Candida Sidhu PA [address] [place] [address] [facility] on above: Arrived Start: 07-11-2024 COVID-19 Vaccine ( season) COVID-19 Vaccine ( season) [facility] Start: 07-11-2024 Influenza vaccination N S [facility] Start: 03-10-2024 Tobacco Counseling Tobacco Counselin g [facility] Start: 07-11-2023 COVID-19 Vaccine ( season) COVID-19 Vaccine ( season) [facility] Start: 07-11-2023 Influenza vaccination Influenza Vacc ine [facility] Start: 01-22-2023 End: 01-22-2023 [facility] Start: 07-08-2022 MRI of head MR head/brain wo con Fi [facility] Start: 07-08-2022 End: 07-08-2022 Patient encounter procedure Departed Clinical [facility] [address] Start: 2017 Administration of varicella zoster vaccine Zoster (Shingles) Vaccine (1 of 2) [facility] Start: 1986 DTaP,Tdap and Td Vac cines (1 - Tdap) DTaP,Tdap and Td Vaccines (1 - Tdap) [facility] Start: 1985 Adult BMI Follow Up Plan Adult BMI Follow Up Plan [facility] Start: 1979 Depression Screening Depression Scre ening [facility] Start: 1967 Screening for malign ant neoplasm of colon [facility] Start: 1967 Tobacco Counseling Tobacco Counselin g [facility] Patient referral [facility] Work Phone: Immunizations Immunization Date Immunization Notes Care Provider Augustus villanueva 03-07-2021 COVID-19 mRNA, Comirnaty (Pfizer) [facility] 02-14-2021 COVID-19 mRNA, Comirnaty (Pfizer) [facility] 12-08-2020 influenza virus vaccine, unspecified formulation Candida PUENTES Work Phone: [facility] Payers Date Payer Category Payer Unknown 2022 Medicaid [id number] 2022 Medicaid [id number] 2022 Self-pay [id number] 1967 Unknown [id number] 2.16.84 0.1.110804.3.579.2.593 1967 Unknown [id number] 2.16.84 0.1.455610.3.579.2.593 1967 Unknown [id number] 2.16.8 40.1.366737.3.579.2.173 1967 Unknown [id number] 2.16.8 40.1.512224.3.579.2.173 1967 Unknown [id number] 2.16.8 40.1.173697.3.579.2.173 1967 Unknown [id number] 2.16.84 0.1.733333.3.579.2.1259 1967 Unknown [id number] 2.16.84 0.1.058244.3.579.2.1259 1967 Unknown [id number] 2.16.84 0.1.765043.3.579.2.1259 1967 Unknown [id number] 2.16.84 0.1.120015.3.579.2.1259 1967 Unknown [id number] 2.16.84 0.1.564641.3.579.2.1259 1967 Unknown [id number] 2.16. 840.1.278828.3.579.2.196 1967 Unknown [id number] 2.16. 840.1.208346.3.579.2.196 1967 Unknown [id number] 2.16. [id number] 1965 Unknown [id number] 2.16. 840.1.465193.3.579.2.196 1965 Unknown [id number] 2.16. 840.1.700953.3.579.2.196 1965 Unknown [id number] 2.16. 840.1.909016.3.579.2.196 1965 Unknown [id number] 2.16. 840.1.994687.3.579.2.196 1957 Unknown [id number] 2.1 6.840.1.915966.19 Unknown [id number] 2.1 6.840.1.611319.19 Unknown [id number] 2.16.8 40.1.484464.3.579.2.531 Unknown [id number] 2.16.8 40.1.606084.3.579.2.531 Unknown [id number] 2.16.8 40.1.239457.3.579.2.531 Unknown [id number] 2.16.8 40.1.357420.3.579.2.531 Unknown [id number] 2.16.8 40.1.253630.3.579.2.531 Social History Date Type Detail Facility Start: 04-23-2024 End: 09-06-2024 Sex Assigned At [facility] [employer] Other Start: 10-16-2021 End: 01-22-2023 Tobacco smoking status [facility] Smoker (finding) [facility] Start: 1965 Sex Assigned At Male F [facility] Start: 09-10-2022 End: 04-23-2024 Tobacco smoking status [facility] Smokes tobacco daily [facility] History of tobacco use [facility] Start: 04-23-2024 Tobacco use and exposure User of smokeless tobacco [facility] Start: 04-23-2024 End: 09-06-2024 Alcoholic beverage intake Current drinker of alcohol (finding) [facility] Start: 04-23-2024 End: 09-06-2024 History of Social function [facility] How often to you hav e a drink containing alcohol? Monthly or less [facility] How many standard drinks containing alcohol do you have on a typical day? 1 or 2 [facility] How often do you hav e 6 or more drinks on 1 occasion? Less than monthly [facility] Start: 1965 Sex assigned at Not on file P [facility] Start: 09-10-2022 Tobacco use and exposure Smokeless tobacco non-user [facility] Childcare Unknown [facility] Start: 05-03-2021 Alcohol Comment [facility] Start: 07-12-2015 Sex Male (finding) [facility] Medical Equipment Procedure Code Equipment Code Equipment Origin al Text Equipment Identifier Dates BONE 7MM DUO FORTITUDE SERIES FDA Start: 10-16-2021 Spinal fixation plate, non-bioabsorbable ()[id number] FDA Start: 10-16-2021 Bone-screw inter nal spinal fixation system, non-sterile ()[id number] FDA Start: 10-16-2021 Bone-screw inter nal spinal fixation system, non-sterile ()[id number] FDA Start: 10-16-2021 BONE 7MM DUO FORTITUDE [...] from the original note were not included. [address] [place] [id number] Patient: Rosa Eastman Date of : 1965 [...] 05/03/2021 Performed by Carlos Olmos MD at [facility] TONSILLECTOMY ULNAR NERVE REPAIR [...] your understanding. documented in this encounter [facility] 12-09-2024 Miscellaneous Notes Contacted the Pt. To remind him to get his PSA drawn before his appt on Friday with MD Drew. No further questions at this time. documented in this encounter [facility] 12-09-2024 Telephone encounter Note Contacted the Pt. To remind him to get his PSA drawn before his appt on Friday with MD Drew. No further questions at this time. [facility] 09-06-2024 History of Presen t illness [...] Review Audit Reviewed by Sophy Hays MA (Assurance Manager Insurance) on 09/06/24 at 1323 Medication Order Taking? Sig Documenting Provider Last Dose Status cyclobenzaprine (Flexeril) 5 MG tablet [id number] Take 2 tablets (10 mg) by mouth at bedtime DELORIS Steele 09/01/24 2359 gabapentin (Neurontin) 100 MG capsule [id number] Take 100 mg by mouth in the morning and 100 mg before bedtime. Historical ProviderMD Active latanoprost (Xalatan) 0.005 % ophthalmic solution [id number] Administer 1 drop into both eyes at bedtime DELORIS Steele Active meclizine (Antivert) 25 MG tablet [id number] Take 25 mg by mouth 3 (three) times a day as needed for dizziness DELORIS Steele Active omeprazole (PriLOSEC) [address] capsule [id number] Take 40 mg by mouth in the morning. Take before meals. Do not crush or chew.. Historical ProviderMD Active rosuvastatin (Crestor) 10 MG tablet [id number] Take 10 mg by mouth Daily Historical [...] -admits weakness in hand and trouble with maintenance mgr -finds himself dropping things -balance is good [...] triceps, wrist extensors, wrist extensors, wrist flexor, maintenance mgr strength 5/5. LUE Strength deltoid, biceps, triceps, wrist extensors, wrist extensors, wrist flexor, maintenance mgr strength 5/5. RLE Strength illopsoas, quadriceps, tibialis [...] EMG pending course documented in this encounter [facility] 12-09-2023 History of Presen t illness Narrative Images from the original note were not included. [address] [place] [address] [facility] [id number] Patient: Rosa Eastman Date of : 1965 [...] 05/03/2021 Performed by Carlos Olmos MD at [facility] TONSILLECTOMY ULNAR NERVE REPAIR [...] for your understanding. documented in this encounter [facility] 02-20-2023 Evaluation note Encounter Date Diagnosis Assessment [...] he has had a good outcome overall. [facility] Other 05-04-2022 Evaluation note* Encounter Date Diagnosis [...] Cervical spondylosis with myelopathy (ICD-10 - M47.12) [facility] Other 03-29-2022 NoteEducation Materials Neurology Paresthesia Paresthesia [...] or sweet foods. General instructions ? Take afgn-vgm-ivnbzqq and prescription medicines only as told by [...] provider. Document Revised: 11/22/2019 Document Reviewed: 11/05/2018 [employer] Patient Education ? 2020 [employer]. Orthopedics Cubital Tunnel Syndrome Cubital tunnel syndrome [...] ? Playing contact sports, (more content not included)...[facility] 01-14-2022 Evaluation note* Encounter Date Diagnosis [...] will see him on an as-needed basis. [facility] Other 11-10-2021 Evaluation note* Encounter Date Diagnosis [...] They understand and would like to proceed [facility] Other 09-27-2021 Note [id number]05-23-2021 NoteEducation Materials Orthopedics Wrist Sprain, Adult [...] health care provider. General instructions ? Take vbua-fsa-jkhsoct and prescription medicines only as told by [...] provider. Document Revised: 10/09/2018 Document Reviewed: 05/15/2017 [employer] Patient Education ? 2020 [employer] Wrist and Forearm Exercises Ask your health care provider which exercises are safe for you. Do exercises exactly as told by your health care provider and adjust them as directed. It is normal to feel mild stretching, pulling, tightness, or discomfort as you do these exercises. Stop right away if you feel sudden pain or your (more content not included)...[facility] noteNo InformationNortKirkbride Center [facility] Other evaluation noteNo assessment information available [facility] Work Phone: Evaluation note* Diagnosis Balance problems- Primary Abnormality of gait Hyper reflexia Abnormal reflex Lightheadedness Dizziness and giddiness Lumbar back pain Lumbago GIRMA (obstructive sleep apnea) Obstructive sleep apnea (adult) (pediatric) Memory change Memory loss documented in this encounter [facility] HealthcareEvaluation note* Diagnosis Benign localized prostatic hyperplasia with lower urinary tract symptoms (LUTS)- Primary Benign localized prostatic hyperplasia with lower urinary tract symptoms (LUTS)- Primary [facility] Diagnosis Benign localized prostatic hyperplasia with lower urinary tract symptoms (LUTS)- Primary documented in this encounter [facility]* Diagnosis Radiculopathy, cervical region- Primary Brachial neuritis or radiculitis nos Memory change Memory loss GIRMA (obstructive sleep apnea) Obstructive sleep apnea (adult) (pediatric) Balance problems Abnormality of gait documented in this encounter [facility] HealthcareHistory general Narrative - Reported* Type Description Date Surgical History (R) carpal tunnel release Surgical History (R) Ulnar nerve release Surgical History tonsillectomy Hospitalization History See Above [facility] Other Hospital Discharge instructions Additional Instructions Use [...] Any unusual redness or drainage [facility] Work Phone: InstructionsNot on filedocumented in this encounter [facility] SystemInstructionsNot on filedocumented in this encounter [facility] [employer] SystemInstructions* Attachments The following attachments cannot be sent through Care Everywhere. * Benign prostatic hyperplasia (enlarged prostate) ([place]) [facility] Summary Purpose Family History No Family [...] 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) Referral Organization [facility] urosurgery Referring Provider First Name Harvey Referring Provider Last Name Yanet Referring Provider Specialty Neurosurger y Referred Organization [facility] Referred Provider aMni Carpenter Referred Address [address], [place],[address] Referred Provider Specialty Neurology Referral Priority Routine [...] section and content) DATE CREATED AUTHOR 02/16/2022 [facility] DATE CREATED AUTHOR AUTHOR'S ORGANIZ ATION 01/23/2023 [facility] DATE CREATED AUTHOR AUTHOR'S ORGANIZ ATION 03/08/2023 [facility] DATE CREATED AUTHOR AUTHOR'S ORGANIZ ATION 10/18/2023 [facility] DATE CREATED AUTHOR AUTHOR'S ORGANIZ ATION 02/02/2025 [facility] EPIC DATE CREATED AUTHOR AUTHOR'S ORGANIZ ATION 02/05/2025 [facility] REASON FOR VISIT (unrecogniz ed section [...] Active Josué Evangelista MD Attending Provider Active 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 Relationship Specialty Start Date End Date Britt Penaloza, DO [address] [place] [address] PCP - General Family Medicine 11/10/23 Mani Carpenter MD [address] [place] [place], [place] [id number] Referring Physician Neurology 11/10/23 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 Relationship Specialty Start Date End Date Britt Penaloza, DO [address] [place] [address] PCP - General Family Medicine 11/10/23 Mani Carpenter MD [address] [place], [place] [id number] Referring Physician Neurology 11/10/23 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[employer] Relationship Specialty Start Date End Date [facility] [address] [place] PCP - General Family Medicine 05/03/21 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 Relationship Specialty Start Date End [facility] [address] [place] PCP - General Family Medicine 05/03/21 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ship Relationship Specialty Start Date End Date Services, [facility] [address] [place] PCP - General Family Medicine 05/03/21 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ship Relationship Specialty Start Date End Date Britt Penaloza, [address] [place] [address] PCP - General Family Medicine 11/10/23 Mani Carpenter MD [address] [place] [address] Referring Physician Neurology 11/10/23 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ship Relationship Specialty Start Date End Date GildayamilaBreetyDO [address] [place] [address] PCP - General Family Medicine 11/10/23 Mani Carpenter MD [address] [place] [address] Referring Physician Neurology 11/10/23 Goals (unrecognized section [...] BE BASED ON THE PRIMARY CLINICAL RECORDS. [facility] [employer] [facility]. provides no warranty or guarantee of the accuracy or completeness of information in this document.
[2025-02-28 11:11] VITALS: BP 117/67; PULSE 80; TEMP 36.4; O2SAT 95
[2025-02-28 12:05] VITALS: BP 115/56; BP 133/64; PULSE 70; PULSE 74; O2SAT 96
[2025-02-28] MEDS: IOHEXOL 240 MG/ML - 10 ML VIAL 24 MG INJ (12:06)
[2025-02-28] MEDS: BUPIVACAINE HCL 0.25% PF 25 MG/10 ML VIAL 2 ML INJ (12:06)
[2025-02-28] MEDS: LIDOCAINE HCL 2% 400 MG/20 ML MDV INJ (12:06)
[2025-02-28] MEDS: METHYLPREDNISOLONE ACETATE 40 MG/ML VIAL INJ (12:07)
--- NOTE | 2025-02-28 12:07 | W.PM.PROCNOT ---
Date of procedure: 02/28/25 Pre-op diagnosis: Pain due to right sacroiliitis Post-op diagnosis: same as pre-op Procedure: Procedure: Right sacroiliac joint injection Medications: Bupivacaine 0.25% 3cc, depomedrol 40mg After informed consent was obtained, the patient was brought to the medical procedure unit and placed in the prone position, when a timeout was completed verifying correct patient, procedure, site, positioning, implant, and/or special equipment.? The skin overlying the area was prepped and draped in standard sterile fashion using alcohol.? A 25-gauge needle was inserted towards the right sacroiliac joint under direct fluoroscopic imaging.? Needle tip was advanced until the joint was encountered.? We instilled a total of 2 mL of solution.? Postoperatively needles were removed.? The patient tolerated the procedure well without complication.? The patient reported reduction in pain symptoms postoperatively. Anesthesia: Local Surgeon: Richard Lezama Pathology: none sent Condition: stable Disposition: no change
== END 2025-02-28 12:10 | disposition home or self-care (01) ==
LOC: SURGOUT 10:51
PROVIDERS: PCP Family Medicine; Visit Provider Anesthesiology
DX: M46.1 Sacroiliitis, not elsewhere classified (principal); M53.3 Sacrococcygeal disorders, not elsewhere classified
CPT/HCPCS: 27096; J0665; J1010; Q9966

== ENCOUNTER 2025-03-09 13:06 | Outpatient (OUT) | payer MEDICAID, SELFPAY ==
--- NOTE | 2025-03-09 13:27 | PM.CN ---
Consult Note: HPI Data of Consult Patient: known to practice within the last 3 years Requesting Physician: Wilma Bhardwaj NP Primary Care Provider: Britt Goodman Consult Narrative Reason for consult: right low back and leg pain, neck pain and BUE pain Narrative: 59yom who presents for assessment. notes worsening pain in neck, BUE, low back, right buttock, right leg. imaging of lumbar spine consistent with stenosis at multiple levels of lumbar spine, including l4-5, l5-s1. no recent imaging of cervical spine, pt reports surgical intervention in 2020 on cervical spine. has continued in a series of provider directed home exercises >6 weeks, without lasting benefit. continues using flexeril, gabapentin, otc tylenol arthritis. cannot take NSAIDs due to GERD. denies adverse med side effects. recent right L4/5 L5/S1 TFESI providing >50% improvement ongoing in radicular pain and NC claudication and right SIJ injection providing >50% improvement. pt would like to further address neck and BUE pain, recently underwent EMG of BUE without results available. cc:: CC: Wilma Bhardwaj NP Review of Systems ROS Status of ROS 10 or more systems reviewed and unremarkable except as noted in history and below Musculoskeletal Reports: back pain and joint pain [facility] Medical History (Updated 03/09/25 @ 13:31 by Wilma Bhardwaj NP) Glaucoma ?H40.9 - Unspecified glaucoma (ICD-10) Obesity ?E66.9 - Obesity, unspecified (ICD-10) Smoker ?F17.200 - Nicotine dependence, unspecified, uncomplicated (ICD-10) Low back pain ?M54.50 - Low back pain, unspecified (ICD-10) Neck pain ?M54.2 - Cervicalgia (ICD-10) Osteoarthritis ?M19.90 - Unspecified osteoarthritis, unspecified site (ICD-10) Bipolar depression ?F31.9 - Bipolar disorder, unspecified (ICD-10) Carpal tunnel syndrome ?G56.00 - Carpal tunnel syndrome, unspecified upper limb (ICD-10) Chronic GERD ?K21.9 - Gastro-esophageal reflux disease without esophagitis (ICD-10) Acid reflux ?K21.9 - Gastro-esophageal reflux disease without esophagitis (ICD-10) Sleep apnea ?G47.30 - Sleep apnea, unspecified (ICD-10) High cholesterol ?E78.00 - Pure hypercholesterolemia, unspecified (ICD-10) Surgical History H/O neck surgery ?Z98.890 - Other specified postprocedural states (ICD-10) H/O elbow surgery ?Z98.890 - Other specified postprocedural states (ICD-10) H/O carpal tunnel repair ?Z98.890 - Other specified postprocedural states (ICD-10) Hx of tonsillectomy ?Z90.89 - Acquired absence of other organs (ICD-10) H/O eye surgery ?Z98.890 - Other specified postprocedural states (ICD-10) Meds Home Medications and Allergies Home Medications ?Medication ?Instructions ?Recorded ?Confirmed ?Type epinephrine 0.3 mg/0.3 mL 0.3 mg IM DAILY PRN anaphylaxis 08/30/23 02/28/25 History injection, auto-injector latanoprost 0.005 % eye drops 1 drp ophthalmic (eye) .QHS 08/30/23 02/28/25 History omeprazole 40 mg capsule,delayed 40 mg PO QAM 08/30/23 02/28/25 History release rosuvastatin 5 mg tablet 5 mg PO DAILY 08/30/23 02/28/25 History cyclobenzaprine 5 mg tablet 5 mg PO DAILY 12/08/23 02/28/25 History gabapentin 100 mg capsule 100 mg PO DAILY 12/08/23 02/28/25 History famotidine 20 mg tablet mg 04/19/24 History Allergies Allergy/AdvReac Type Severity Reaction Status Date / Time bee venom protein (honey bee) Allergy Severe UNKNOWN Verified 02/28/25 11:14 Penicillins Allergy Severe LOSS OF Verified 02/28/25 11:14 CONCIOUSNESS Exam Constitutional Documenting provider has reviewed patient's vital signs: yes Common normals: no apparent distress, oriented x3, healthy appearing, alert and well nourished General appearance: cooperative HENMT Common normals: normocephalic, hearing grossly normal bilaterally and moist oral mucous membranes Head and scalp: normocephalic Eye Common normals: PERRL Pupil: PERRL Neck & C-Spine Common normals: full ROM General: normal visual inspection Cervical spine: cervical ROM abnormal lateral flexion to the right decreased, lateral flexion to the left decreased, rotation to the left decreased, rotation to the right decreased, anterior flexion decreased and extension decreased, pain with cervical ROM with lateral flexion to the right, with lateral flexion to the left, with rotation to the right, with rotation to the left, with anterior flexion and with extension and cervical spine tenderness Other: positive spurlings decreased sensation to bilateral C5,6,7 strength 4/5 in BUE Chest Common normals: inspection of chest normal Respiratory Common normals: normal respiratory effort, no retractions and no use of accessory muscles Back & Pelvis Lumbar spine/lower back: ROM limited, pain with ROM and straight leg raise negative bilaterally Sacroiliac joints: SI joints normal Other: strength 5/5 in BLE Neuro Common normals: oriented x3, CN's II-XII intact bilaterally, moves all extremities, no focal motor deficits, no sensory deficits noted and deep tendon reflexes 2+ bilaterally Sensorium/orientation: alert Motor exam: strength 5/5 throughout and no movement abnormalities noted Psych Common normals: mental status grossly normal, thought process normal, cooperative, affect normal, speech normal and activity/motor behavior normal Speech: normal speech Thought process: normal thought process Results Additional Findings Additional findings: If on a controlled substance or opioids, I have checked an [place]AR[place] report on this patient and there are no aberrancies noted in the prescribing history.??If on a controlled substance or opioid a drug screen was completed and reviewed within the last year, and if there has not been a drug screen completed we ordered one today to monitor higher risk, state monitored pain medication use. As part of providing excellent, safe, comprehensive care, the following was completed at our patient's visit: 1. A medication reconciliation and review to ensure accurate knowledge of current/active medications, including asking our patients to inform us about any xwed-eix-nzunhmk medications or herbal remedies/nutritional supplements/alternative remedies. 2. A review to specifically ensure our patients have had annual screening for screening for depression, screening for tobacco use, and screening for unhealthy alcohol use. For concerning screenings had a discussion with the patient, provided patient education, and recommended follow-up with primary care provider when appropriate. If patient noted with a risk of falling, they received education on strength, gait, and balance training to prevent future risk of falling. Portions of this note may have been carried over from the previous visit and updated as appropriate. Please note this office utilizes paper charting in addition to the electronic medical record. A list of current medications, vitals, and PMH is available there as the clinical staff outside of myself do not have access to [employer] charting during the clinic day operations. As part of providing quality comprehensive care the current medications, vitals, and PMH were reviewed in the paper chart. Assessment and Plan Assessment and Plan (1) Lumbar stenosis with neurogenic claudication: Assessment and Plan: 01/31/25 right L4-5 L5-S1 TFESI >50% improvement in radicular pain (2) Sacroiliitis: Assessment and Plan: 02/28/25 right SIJ injection >50% improvement ongoing? (3) Lumbar spondylosis: (4) Failed neck syndrome: (5) Cervical spondylosis: (6) H/O neck surgery: (7) Myofascial pain: (8) Cervical radiculopathy: Plan update cervical xray and cervical MRI without contrast to assess chronic severe neck pain and radiculopathy to BUE post surgical intervention. has failed to benefit from > 6 weeks of provider guided HEP, heat, ice, tylenol, NSAIDs. MRI essential in consideration of SHAZIA vs NS consultation continue current medications continue HEP as tolerated f/u to review imaging
== END 2025-03-09 13:07 | disposition home or self-care (01) ==
LOC: PM 13:07
PROVIDERS: PCP Family Medicine; Visit Provider Nurse Practitioner
DX: M48.062 Spinal stenosis, lumbar region with neurogenic claudication (principal); M46.1 Sacroiliitis, not elsewhere classified; M47.816 Spondylosis without myelopathy or radiculopathy, lumbar region; M96.1 Postlaminectomy syndrome, not elsewhere classified; M47.812 Spondylosis without myelopathy or radiculopathy, cervical region; M79.18 Myalgia, other site; M54.12 Radiculopathy, cervical region; Z98.890 Other specified postprocedural states
CPT/HCPCS: G0463

== ENCOUNTER 2025-03-11 09:00 | Outpatient (OUT) | payer MEDICAID, SELFPAY ==
--- NOTE | 2025-03-11 09:05 | XR_ITS ---
[facility] [place] [id number] Patient Name: ROSA MCNAMARA MRN: [id number] date: 1965 Sex: M Assigned Patient Location: [facility] Current Patient Location: [facility] Accession/Order Number: [id number] Exam Date: 03/11/2025 09:46 Report Date: 03/11/2025 09:46 At the request of: JEB BEE NP Procedure: XR cervical spine 5V CERVICAL SPINE 5 views: CLINICAL HISTORY: Cervical Radiculopathy COMPARISON: None FINDINGS: Anterior fusion hardware C3-4 without hardware complication. Vertebral body heights appear maintained. Endplate degenerative changes are present with mild facet joint degenerative changes. No severe bony neural foraminal narrowing. No significant disc height loss. No prevertebral soft tissue swelling. XR/XR cervical spine 5V IMPRESSION: NO HARDWARE COMPLICATION. PREDOMINANTLY ENDPLATE AND FACET JOINT DEGENERATIVE CHANGES WITHOUT SIGNIFICANT DISC HEIGHT LOSS. Impression dictated by: Marbin Veras Jr., DAydin 03/11/2025 9:46 AM Dictation Location: [facility]waves Electronically authenticated by: [id number] Y Date: 03/11/2025 09:46
== END 2025-03-11 09:01 | disposition home or self-care (01) ==
LOC: RAD 09:01
PROVIDERS: PCP Family Medicine; Visit Provider Nurse Practitioner
DX: M54.12 Radiculopathy, cervical region (principal); M43.22 Fusion of spine, cervical region; M50.30 Other cervical disc degeneration, unspecified cervical region
CPT/HCPCS: 72050

== ENCOUNTER 2025-03-24 09:49 | Outpatient (OUT) | payer MEDICAID, SELFPAY ==
--- NOTE | 2025-03-24 09:50 | MR_ITS ---
The [address] [address] Patient Name: ROSA MCNAMARA MRN: [id number] date: 1965 Sex: M Assigned Patient Location: MRI Current Patient Location: MRI Accession/Order Number: [id number] Exam Date: 03/24/2025 11:41 Report Date: 03/24/2025 11:44 At the request of: GALI BAER MD Procedure: MR cervical spine wo con MR cervical spine wo con 03/24/2025 10:35 AM SIGNS AND SYMPTOMS: Cervical radiculopathy with numbness and tingling in right arm and right hand ^Cervical Radiculopathy PROTOCOL: Multiplanar multisequence MR images of the cervical spine without IV contrast COMPARISON: 03/11/2025 FINDINGS: The bones of the cervical spine are in anatomic alignment. There is preservation of vertebral body heights. There is anterior and intervertebral fusion at C3-C4 which is unchanged. There is mild intervertebral disc height loss at C2-C3 and C4-C5. The marrow signal is within normal limits. There is focal T2 and STIR hyperintense signal within the cord at C4 with mild cortical atrophy consistent with chronic myelomalacia. No epidural or paraspinous fluid collection is appreciated. The visualized paraspinous soft tissues are within normal limits. The prevertebral soft tissues are within normal limits. At C2-C3: There is uncovertebral joint spurring and facet hypertrophy with moderate left and mild right neural foraminal narrowing. There is mild spinal canal narrowing. At C3-C4: There is anterior and intervertebral fusion without significant spurring and facet hypertrophy. There is mild spinal canal narrowing with mild bilateral neural foraminal narrowing. At C4-C5: There is a broad-based disc bulge with uncovertebral joint spurring and facet hypertrophy. There is moderate right and mild left neural foraminal narrowing with moderate spinal canal narrowing. At C5-C6: There is a normal disc, central canal, and neural foramen. At C6-C7: There is a normal disc, central canal, and neural foramen. At C7-T1: There is a mild broad-based disc bulge with uncovertebral joint spurring. There is mild spinal canal narrowing with moderate right and mild left neural foraminal narrowing. MR/MR cervical spine wo con IMPRESSION: Chronic myelomalacia is noted in the cord at C4 with anterior and intervertebral fusion at C3-C4. At C2-C3: There is uncovertebral joint spurring and facet hypertrophy with moderate left and mild right neural foraminal narrowing. There is mild spinal canal narrowing. At C4-C5: There is a broad-based disc bulge with uncovertebral joint spurring and facet hypertrophy. There is moderate right and mild left neural foraminal narrowing with moderate spinal canal narrowing. At C7-T1: There is a mild broad-based disc bulge with uncovertebral joint spurring. There is mild spinal canal narrowing with moderate right and mild left neural foraminal narrowing. Impression dictated by: Rob Funez M.D. 03/24/2025 11:44 AM Dictation Location: [place] [id number] Electronically authenticated by: [id number] Y Date: 03/24/2025 11:44
--- OUTSIDE RECORDS SUMMARY | 2025-03-24 10:06 | XMS_ITS | CCD ---
Author Organization [facility] Care Team Providers Care Manager Process Excellence Name Role Phone Harvey Holt Unavailable NON [...] Britt Primary Care Unavailable Josué Evangelista Unavailable [facility] Primary Care Unava ilable MITCHELL TRAYLOR Admitting Unavailable MERCEDES ENRIQUEZ Consulting Unavailable MITCHELL TRAYLOR Attending Unavailable MANI HARGROVE Consulting Unavailable MITCHELL TRAYLOR Consulting Unavailable MISC, DR GARCIAS Attending Unavailable MISC, DR GARCIAS Consulting Unavailable [facility] Primary Care Unava ilable RADHA, DR GARCIAS Admitting Unavailable RUMSCHLAG, BRITT Primary Care Unavailable YVONNE CAMARENA Referring Unavailable YVONNE CAMARENA Referring Unavailable RUMSCHLAG, BRITT Primary Care Unavailable CANDIS RENTERIA Admitting Unavailable CANDIS RENETRIA Attending Unavailable TREMAINE BRITT Primary Care Unavailable Britt Goodman DO Primary Care Provider Mani Carpenter MD Unavailable [phone] [facility] Primary Care Provider CHARMAINE CASTRO Attending Unavailable MANI CARPENTER Attending Unavailable CHARMAINE CASTRO Attending Unavailable CANDIDA SIDHU Attending Unavailable CANDIDA SIDHU Attending Unavailable Giedraitis , Andrius Vytautas Attending Unavailable Giedraitis , Andrius Vytautas Attending Unavailable Giedraitis , Andrius Vytautas Attending Unavailable Giedraitis , Andrius Vytautas Attending Unavailable Giedraitis , Andrius Vytautas Attending Unavailable Giedraitis , Andrius Vytautas Attending Unavailable Ericaraadrienne RAWLS, Andrius Vytautas Attending Unavailable Mani Carpenter MD Unavailable Unavailable Charmaine Adkins Unavailable Allergies Allergy Classification Reported Allergen(s) Allergy Type Date of Onset Reaction(s) Facility (7 sources) penicillAMINE Drug Allergy Unknown [employer] Other (7 sources) Bee Sting Drug allergy Unknown [employer] Other (17 sources) Penicillins; Translations: [Penicillins] Allergy to substance 05-07-20 17 Unknown Reaction [facility] (5 sources) venom-honey bee; Translations: [venom-honey bee] Allergy to substance 10-02-20 21 Swelling [facility] (1 source) bee venom Drug allergy (disorder) [facility] (1 source) Penicillin Drug Allergy [facility] (3 sources) Bee Venom Protein (Honey Bee) Propensity to adverse reactions to drug 05-03-20 21 [facility] (5 sources) Honey bee venom Propensity to adverse [...] 12:00am cyclobenzaprine hydrochloride 5 mg oral tablet (9 sources) Muscle Relaxant Start: 025 take 2 tablets by mouth at bedtime cyclobenzaprine (Flexeril) 5 MG tablet Indications: Radiculopathy, cervical region TAKE 2 TABLETS BY MOUTH AT BEDTIME 30 tablet 1 03/16/2025 Active Start: 12-27-2024 take 2 tablets by mo [facility] at bedtime cyclobenzaprine (Flexeril) 5 MG tablet Indications: Radiculopathy, cervical region TAKE 2 TABLETS BY MOUTH AT BEDTIME 30 tablet 1 12/27/2024 Active Start: 12-02-2023 take 1 tablet by [place] once daily at bedtime cyclobenzaprine (FLEXERIL) 5 mg tablet Take 1 tablet (5 mg total) by mouth once daily at bedtime. 12/02/2023 Active diclofenac sodium 25 mg delayed release oral tablet (2 sources) Nonsteroidal Anti-inflammatory Drug Start: 03-23-2025 End: 04-22-2025 take 1 tablet by mouth in the morning diclofenac (Voltaren) 25 MG EC tablet Indications: Lumbosacral radiculopathy Take 1 tablet (25 mg) by mouth in the morning and 1 tablet (25 mg) before bedtime. Do not crush, chew, or split. 60 tablet 2 03/23/2025 04/22/2025 Active gabapentin 100 mg oral capsule (9 sources) Anti-epileptic Agent take 2 capsules by mouth in the morning gabapentin (Neurontin) 100 MG capsule Take 200 mg by mouth in the morning and 200 mg before bedtime. Active take 1 capsule by mouth in the m orning gabapentin (Neurontin) 100 MG capsule Take 100 mg by mouth in the morning and 100 mg before bedtime. Active ibuprofen 200 mg oral tablet (2 sources) Nonsteroidal Anti-inflammatory Drug Start: 01-13-2023 take 400 mg by mouth once daily Ibuprofen Active 400 MG PO Daily January 13, 2023 1:00am latanoprost 0.05 mg/ml ophthalmic solution (20 sources) Prostaglandin Analog Start: 08-01-2022 take 1 drop(s) into the eye(s) once [...] Active meclizine hydrochloride 25 mg oral tablet (9 sources) Antiemetic meclizine (Antivert) 25 MG tablet Take 25 mg by mouth as needed in the morning and 25 mg as needed at noon and 25 mg as needed in the evening for dizziness. Active naproxen 500 mg oral tablet (3 [...] omeprazole 40 mg delayed release oral capsule (9 sources) Proton Pump Inhibitor take 1 capsule by mouth before mealtime omeprazole (PriLOSEC) [address] capsule Take 40 mg by mouth in the morning. Take before meals. Do not crush or chew. Active oxyCODONE hydrochloride 5 mg oral tablet [...] 9:23am rosuvastatin calcium 5 mg oral tablet (17 sources) HMG-CoA Reductase Inhibitor Start: 08-29-2022 take [...] [Dizziness and giddiness] 09-06-2024 Episodic Developmental disorders (9 sources) Mild intellectual disability; Translations: [Mild intellectual [...] upper limb] Chronic Other nervous system disorders (9 sources) Lesion of ulnar nerve, right upper limb; Translations: [Entrapment of right ulnar nerve at elbow] Onset: 01-14-2022 Resolved: 03-13-2022 Chronic Other nervous system disorders (9 sources) Ulnar nerve entrapment at elbow; Translations: [Lesion of ulnar nerve, right upper limb] Onset: 04-23-2024 04-23-2024 Chronic Other nervous system disorders (9 sources) Carpal tunnel syndrome of right wrist; Translations: [Carpal tunnel syndrome, right upper limb] Onset: 04-23-2024 04-23-2024 Chronic Other nervous system disorders (9 sources) Lesion of right ulnar nerve; Translations: [Lesion of ulnar nerve, right upper limb] Onset: 04-23-2024 04-23-2024 Chronic Other nervous system disorders (9 sources) Chronic pain; Translations: [Other chronic pain] Onset: 04-23-2024 04-23-2024 Chronic Other nervous system disorders (15 sources) Impairment of balance; Translations: [Other abnormalities of gait and mobility] Onset: 04-23-2024 04-23-2024 Episodic Residual codes; unclassified (4 sources) Obstructive sleep apnea (adult) (pediatric); Translations: [OBSTRUCTIVE SLEEP APNEA] Onset: 03-04-2023 Chronic Residual codes; unclassified (15 sources) Obstructive sleep apnea syndrome; Translations: [Obstructive sleep apnea (adult) (pediatric)] Onset: 04-23-2024 04-23-2024 Chronic Residual codes; unclassified (15 sources) Memory impairment; Translations: [Other amnesia] Onset: 04-23-2024 04-23-2024 Episodic Spondylosis; intervertebral disc disorders; other back problems (20 sources) Prolapsed cervical intervertebral disc; Translations: [Other cervical disc displacement, unspecified cervical region] Onset: 09-19-2021 Resolved: 03-13-2022 Chronic Spondylosis; intervertebral disc disorders; other back problems (15 sources) Cervical radiculopathy; Translations: [Radiculopathy, cervical region] [...] Onset: 08-10-2022 Episodic Other nervous system disorders (9 sources) Pain in limb; Translations: [Paresthesia of skin] Onset: 04-23-2024 04-23-2024 Episodic Other nervous system disorders (11 sources) Hyperreflexia; Translations: [Abnormal reflex] Onset: 04-23-2024 04-23-2024 Episodic Other nervous system disorders (9 sources) Paresthesia; Translations: [Paresthesia of skin] Onset: 04-23-2024 04-23-2024 Episodic Residual codes; unclassified (1 source) Other amnesia; Translations: [Other amnesia] Onset: 06-21-2022 Episodic Results Test Name Value Interpretation Reference Range Facility Measure post void residualon 12-14-2024 [facility] Prostate specific Ag [Mass/V ol]on 12-09-2023 [facility] Prostatic specific antigen, diagnosticon 12-09-2023 Prostate specific Ag [Mass/Vol] 1.02 ng/mL 0.00 - 4.00 ng/mL [facility] Comment on above: The method used for this test is Roxy Dupont DXI chemiluminescent immunoassay. Values obtained by different assay methods cannot be used interchangeably. H. pylori Antigenon 10-16-20 H. pylori Antigen Specimen Description .FECES Direct Exam NEGATIVE Report Status FINAL 10/16/2023 Normal [facility] Comment on above: Performed By: #### F HPY #### [facility] [address] [place] [address] Litigation Services Manager: Guy Ramey MD [facility] [address] [place] [address] Litigation Services Manager: Justus Darby MD Surgical Pathology Reporton 10-15-2023 Surgical Pathology Report (NOTE) Path Number: [id number] -- Diagnosis -- A. GE junction, endoscopic [...] for each. Microscopic examination performed. Processing Lab: [address] [id number] Interpretation Performed at [address] [id number] SURGICAL PATHOLOGY CONSULTATION Patient Name: ROSA EASTMAN [facility] Rec: [id number] [facility] ANATOMIC PATHOLOGY [address] [place] [address]. [place], [place] [address] Normal [facility] CBC with Diffon 10-14-2023 Abs. Basophil 0.17 k/uL Normal 0.00-0.20 [facility] Comment on above: Performed By: #### C DP #### [facility] [address] [place] [address] [place]. [place], [place] [id number] Litigation Services Manager: Justus Darby MD Abs.Imm.Granulocyte 0.04 k/uL Normal 0.00-0.30 [facility] Comment on above: Performed By: #### C DP #### [address] [place], [place] [id number] Litigation Services Manager: Justus Darby MD Abs.Neutrophil (Seg) 5.08 k/uL Normal 1.50-8.10 [facility] Comment on above: Performed By: #### C DP #### [address] [place] [address] Litigation Services Manager: Justus Darby MD Basophils/100 WBC (Bld) 2 % Normal 0-2 [facility] Comment on above: Performed By: #### C DP #### [address] [place], [place] [phone] Litigation Services Manager: Justus Darby MD Eosinophils (Bld) [#/Vol] 0.43 10*3/uL Normal 0.00-0.44 [facility] Comment on above: Performed By: #### C DP #### [address] [place] [address] Litigation Services Manager: Justus Darby MD Eosinophils/100 WBC (Bld) 4 % Normal 1-4 [facility] Comment on above: Performed By: #### C DP #### [address] [place] [address] Litigation Services Manager: Justus Darby MD Erythrocyte distribution width (RBC) [Ratio] 12.3 % Normal 11.8-14.4 [facility] Comment on above: Performed By: #### C DP #### [facility] [address] [place], [place] [phone] Litigation Services Manager: Justus Darby MD Hematocrit (Bld) [Volume fraction] 44.4 % Normal 40.7-50.3 [facility] Comment on above: Performed By: #### C DP #### [facility] [address] [place] [address] Dr. [place], [facility] Litigation Services Manager: Justus Darby MD Hemoglobin (Bld) [Mass/Vol] 14.6 g/dL Normal 13.0-17.0 [facility] Comment on above: Performed By: #### C DP #### [facility] [address] [place] [address] Dr. [place], [facility] Litigation Services Manager: Justus Darby MD Immature granulocytes/100 WBC (Bld) 0 % Normal 0 [facility] Comment on above: Performed By: #### C DP #### [address] [place], [facility] Litigation Services Manager: Justus Darby MD Lymphocytes (Bld) [#/Vol] 3.86 10*3/uL High 1.10-3.70 [facility] Comment on above: Performed By: #### C DP #### [facility] [address] [place] [address] Dr. [place], [facility] Litigation Services Manager: Justus Darby MD Lymphocytes/100 WBC (Bld) 36 % Normal 24-43 [facility] Comment on above: Performed By: #### C DP #### [address] [place] [address] Litigation Services Manager: Justus Darby MD MCH (RBC) [Entitic mass] 30.9 pg Normal 25.2-33.5 [facility] Comment on above: Performed By: #### C DP #### [facility] [address] [place], [place] [phone] Litigation Services Manager: Justus Darby MD MCHC (RBC) [Mass/Vol] 32.9 g/dL Normal 28.4-34.8 [facility] Comment on above: Performed By: #### C DP #### [facility] [address] [place], [facility] Litigation Services Manager: Justus Darby MD MCV (RBC) [Entitic vol] 93.9 fL Normal 82.6-102.9 [facility] Comment on above: Performed By: #### C DP #### [facility] [address] [place], [facility] Litigation Services Manager: Justus Darby MD Monocytes (Bld) [#/Vol] 1.05 10*3/uL Normal 0.10-1.20 [facility] Comment on above: Performed By: #### C DP #### [facility] [address] [place], [place] [phone] Litigation Services Manager: Justus Darby MD Monocytes/100 WBC (Bld) 10 % Normal 3-12 [facility] Comment on above: Performed By: #### C DP #### [facility] [address] [place] [address] Litigation Services Manager: Justus Darby MD Neutrophil (Seg) 48 % Normal 36-65 [facility] [place] Comment on above: Performed By: #### C DP #### [facility] [address] [place] [facility] Litigation Services Manager: Justus Darby MD NRBC Automated 0.0 per 100 WBC Normal 0.0 [facility] Comment on above: Performed By: #### C DP #### [facility] [address] [place] [facility] Litigation Services Manager: Justus Darby MD Platelet mean volume (Bld) [Entitic vol] 9.6 fL Normal 8.1-13.5 [facility] Comment on above: Performed By: #### C DP #### [facility] [address] [place], [place] [phone] Litigation Services Manager: Justus Darby MD Platelets (Bld) [#/Vol] 297 10*3/uL Normal 138-453 [facility] Comment on above: Performed By: #### C DP #### [facility] [address] [place], [place] [phone] Litigation Services Manager: Justus Darby MD RBC (Bld) [#/Vol] 4.73 10*6/uL Normal 4.21-5.77 [facility] Comment on above: Performed By: #### C DP #### [facility] [address] [place], [place] [phone] Litigation Services Manager: Justus Darby MD WBC (Bld) [#/Vol] 10.6 10*3/uL Normal 3.5-11.3 [facility] Comment on above: Performed By: #### C DP #### [facility] [address] [place], [place] [phone] Litigation Services Manager: Justus Darby MD Basic Metabolic Panelon 0 Anion gap [Moles/Vol] 9.8 mmol/L Normal 6.0-15.0 [facility] Comment on above: Performed By: #### C BC, BMP #### [facility] [address] [place] [address] [place] Calcium [Mass/Vol] 9.1 mg/dL Normal 8.2-10.2 [facility] Comment on above: Result Comment: PERF ORMED BY: [facility] [address] [place] [address] PATHOLOGIST SHADOW GRAPH WEIGHT OPERATOR GENEVIEVE CANNON M.D. Performed By: #### C BC, BMP #### [address] Chloride [Moles/Vol] 104 mmol/L Normal 95-114 [facility] Comment on above: Performed By: #### C BC, BMP #### [address] CO2 [Moles/Vol] 25.9 mmol/L Normal 22.0-30.0 [facility] Comment on above: Performed By: #### C BC, BMP #### [address] Creatinine [Mass/Vol] 0.98 mg/dL Normal 0.64-1.27 [facility] Comment on above: Performed By: #### C BC, BMP #### [address] Estimated GFR ( Camila > 60 [facility] Comment on above: Result Comment: GFR estimated reference range: According to KDOQI guidelines, <60 ml/min/1.73m2 is sufficient to diagnose a patient with chronic kidney disease. Performed By: #### C BC, BMP #### [address] Estimated GFR (Non- Am > 60 [facility] Comment on above: Performed By: #### C BC, BMP #### [address] Glucose [Mass/Vol] 82 mg/dL Normal 70-100 [facility] Comment on above: Result Comment: [place] Glucose Reference Range is dependent on time and content of last meal. Glucose of more than 200 mg/dL in a nonstressed, ambulatory subject supports the diagnosis of Diabetes Mellitus. ADA recommended reference range Performed By: #### C BC, BMP #### [address] Potassium [Moles/Vol] 3.7 mmol/L Normal 3.5-5.1 [facility] Comment on above: Performed By: #### C BC, BMP #### [place] [address] [place] Sodium [Moles/Vol] 136 mmol/L Normal 136-146 [facility] Comment on above: Performed By: #### C MICHELLE, BMP #### [facility] [address] Urea nitrogen [Mass/Vol] 11 mg/dL Normal 9-23 [facility] Comment on above: Performed By: #### C MICHELLE, BMP #### [facility] [address] Basophils Auto (Bld) [#/Vol] Ordered By: Josué Evangelista on 01-13-2023 Basophils (Bld) [#/Vol] 0.1 10*3/uL 0.0-0.2 [facility] Basophils/100 WBC Auto (Bld) Ordered By: Josué Evangelista on 01-13-2023 Basophils/100 WBC (Bld) 1.2 % . [facility] Calcium [Mass/volume] in Ser um or PlasmaOrdered By: Josué Evangelista on 01-13-2023 Calcium [Mass/Vol] 9.1 mg/dL 8.2-10.2 [facility] Carbon dioxide, total [Moles /volume] in Serum or PlasmaOrdered By: Josué Evangelista on 01-13-2023 CO2 [Moles/Vol] 25.9 mmol/L 22.0-30.0 [facility] Chloride [Moles/volume] in S lai or PlasmaOrdered By: Josué Evangelista on 01-13-2023 Chloride [Moles/Vol] 104 mmol/L 95-114 [facility] Complete Blood Count Auto Di ffon 01-13-2023 Basophils (Bld) [#/Vol] 0.1 10*3/uL Normal 0.0-0.2 [facility] Comment on above: Result Comment: PERF ORMED BY: [facility] [address] [place] [address] PATHOLOGIST SHADOW GRAPH WEIGHT OPERATOR GENEVIEVE CANNON M.D. Performed By: #### C MICHELLE, BMP #### [facility] [address] Basophils/100 WBC (Bld) 1.2 % Normal . [facility] Comment on above: Performed By: #### C BC, BMP #### [facility] [address] [place] [address] [place] Eosinophils (Bld) [#/Vol] 0.5 10*3/uL High 0.0-0.45 [facility] Comment on above: Performed By: #### C BC, BMP #### [facility] [address] [place] [phone] [place] Eosinophils/100 WBC (Bld) 4.7 % Normal . [facility] Comment on above: Performed By: #### C BC, BMP #### [facility] [address] Erythrocyte distribution width (RBC) [Ratio] 12.6 % Normal 12.0-14.8 [facility] Comment on above: Performed By: #### C BC, BMP #### [facility] [address] Hematocrit (Bld) [Volume fraction] 41.2 % Normal 38.8-50.0 [facility] Comment on above: Performed By: #### C BC, BMP #### [facility] [address] [place] [address] [place] Hemoglobin (Bld) [Mass/Vol] 14.1 g/dL Normal 13.0-17.0 [facility] Comment on above: Performed By: #### C BC, BMP #### [facility] [address] [place] [address] [place] Lymphocytes (Bld) [#/Vol] 3.4 10*3/uL Normal 1.00-4.8 [facility] Comment on above: Performed By: #### C BC, BMP #### [facility] [address] [place] [phone] [place] Lymphocytes/100 WBC (Bld) 33.3 % Normal . [facility] Comment on above: Performed By: #### C BC, BMP #### [facility] [address] [place] [address] [place] MCH (RBC) [Entitic mass] 31.7 pg Normal 27.5-35.2 [facility] Comment on above: Performed By: #### C BC, BMP #### [facility] [address] MCV (RBC) [Entitic vol] 92.3 fL Normal 83.5-101 [facility] Comment on above: Performed By: #### C BC, BMP #### [facility] [address] Mean Corpuscular HGB Conc 34.4 g/dL Normal 32.5-35.6 [facility] Comment on above: Performed By: #### C BC, BMP #### [facility] [address] Monocytes (Bld) [#/Vol] 1.0 10*3/uL High 0.0-0.8 [facility] Comment on above: Performed By: #### C BC, BMP #### [facility] [address] [place] [address] [place] Monocytes/100 WBC (Bld) 10.1 % Normal . [facility] Comment on above: Performed By: #### C BC, BMP #### [facility] [address] [place] [address] [place] Neutrophils (Bld) [#/Vol] 5.2 10*3/uL Normal 1.8-7.7 [facility] Comment on above: Performed By: #### C BC, BMP #### [facility] [address] [place] [address] [place] Neutrophils/100 WBC (Bld) 50.7 % Normal . [facility] Comment on above: Performed By: #### C BC, BMP #### [facility] [address] [place] [address] [place] NRBC% 0.1 /100{WBC} Normal 0-0.5 [facility] Comment on above: Performed By: #### C BC, BMP #### [facility] [address] Platelet mean volume (Bld) [Entitic vol] 7.8 fL Normal 6.6-10.1 [facility] Comment on above: Performed By: #### C BC, BMP #### [facility] [address] Platelets (Bld) [#/Vol] 268 10*3/uL Normal 150-450 [facility] Comment on above: Performed By: #### C BC, BMP #### [facility] [address] RBC (Bld) [#/Vol] 4.46 10*6/uL Normal 3.90-5.60 [facility] Comment on above: Performed By: #### C BC, BMP #### [facility] [address] WBC (Bld) [#/Vol] 10.3 10*3/uL Normal 4.1-10.5 [facility] Comment on above: Performed By: #### C BC, BMP #### [facility] [address] Creatinine and Glomerular fi ltration rate.predicted panel (S/P/Bld)Ordered By: Josué Evangelista on 01-13-2023 Creatinine [Mass/Vol] 0.98 mg/dL 0.64-1.27 [facility] ECG 12 lead ECGon 01-13-2023 ECG 12 lead ECG [facility] [place] [address] [place] [address] Electrocardiograph Report Signed Patient: Rosa Eastman MR#: [id number] : [id number] Acct:[id number] Age/Sex: 57 / M ADM Date: 01/13/23 [...] Marylin Eisenberg MD 0 01/14/23 1534 Normal [facility] Eosinophils Auto (Bld) [#/Vo l]Ordered By: Josué Evangelista on 01-13-2023 Eosinophils (Bld) [#/Vol] 0.5 10*3/uL 0.0-0.45 [facility] Eosinophils/100 WBC Auto (Bl d)Ordered By: Josué Evangelista on 01-13-2023 Eosinophils/100 WBC (Bld) 4.7 % . [facility] Erythrocyte distribution wid th Auto (RBC) [Ratio]Ordered By: Josué Evangelista on 01-13-2023 Erythrocyte distribution width (RBC) [Ratio] 12.6 % 12.0-14.8 [facility] Estimated glomerular filtrat ion rate (GFR) non- AmericanOrdered By: Josué Evangelista on 01-13-2023 GFR/1.73 sq M.predicted among non-blacks MDRD (S/P/Bld) [Vol rate/Area] > 60 mL/Min [facility] Glucose [Mass/volume] in Ser um or PlasmaOrdered By: Josué Evangelista on 01-13-2023 Glucose [Mass/Vol] 82 mg/dL 70-100 [facility] Comment on above: ADA recommended refe rence rangeRandom Glucose Reference Range is dependent on time and content of last meal. Glucose of more than 200 mg/dL in a nonstressed, ambulatory subject supports the diagnosis of Diabetes Mellitus. Hematocrit Auto (Bld) [Volum e fraction]Ordered By: Josué Evangelista on 01-13-2023 Hematocrit (Bld) [Volume fraction] 41.2 % 38.8-50.0 [facility] Hemoglobin [Mass/volume] in BloodOrdered By: Josué Evangelista on 01-13-2023 Hemoglobin (Bld) [Mass/Vol] 14.1 g/dL 13.0-17.0 [facility] Leukocytes [#/volume] correc lesly for nucleated erythrocytes in Blood by Automated counOrdered By: Josué Evangelista on 01-13-2023 WBC corrected for nucl RBC Auto (Bld) [#/Vol] 10.3 10*3/uL 4.1-10.5 [facility] Lymphocytes Auto (Bld) [#/Vo l]Ordered By: Josué Evangelista on 01-13-2023 Lymphocytes (Bld) [#/Vol] 3.4 10*3/uL 1.00-4.8 [facility] Lymphocytes/100 WBC Auto (Bl d)Ordered By: Josué Evangelista on 01-13-2023 Lymphocytes/100 WBC (Bld) 33.3 % . [facility] MCH Auto (RBC) [Entitic mass ]Ordered By: Josué Evangelista on 01-13-2023 MCH (RBC) [Entitic mass] 31.7 pg 27.5-35.2 [facility] MCHC Auto (RBC) [Mass/Vol]Or dered By: Josué Evangelista on 01-13-2023 MCHC (RBC) [Mass/Vol] 34.4 g/dL 32.5-35.[address] [facility] MCV Auto (RBC) [Entitic vol] Ordered By: Josué Evangelista on 01-13-2023 MCV (RBC) [Entitic vol] 92.3 fL 83.5-101 [facility] Monocytes Auto (Bld) [#/Vol] Ordered By: Josué Evangelista on 01-13-2023 Monocytes (Bld) [#/Vol] 1.0 10*3/uL 0.0-0.8 [facility] Monocytes/100 WBC Auto (Bld) Ordered By: Josué Evangelista on 01-13-2023 Monocytes/100 WBC (Bld) 10.1 % . [facility] Neutrophils Auto (Bld) [#/Vo l]Ordered By: oJsué Evangelista on 01-13-2023 Neutrophils (Bld) [#/Vol] 5.2 10*3/uL 1.8-7.7 [facility] Neutrophils/100 WBC Auto (Bl d)Ordered By: Josué Evangelista on 01-13-2023 Neutrophils/100 WBC (Bld) 50.7 % . [facility] No Panel InformationOrdered By: Josué Evangelista on 01-13-2023 Estimated GFR () > 60 mL/Min [facility] Comment on above: GFR estimated refere nce range: According to KDOQI guidelines, <60 ml/min/1.73m2 is sufficient to diagnose a patient with chronic kidney disease. Pharmacy Creatinine Clearance (Chem N/A [facility] Nucleated erythrocytes [Pres ence] in Blood by Automated countOrdered By: Josué Evangelista on 01-13-2023 Nucleated RBC Auto Ql (Bld) 0.1 /100{WBC} 0-0.5 [facility] Platelet mean volume Auto (B ld) [Entitic vol]Ordered By: Josué Evangelista on 01-13-2023 Platelet mean volume (Bld) [Entitic vol] 7.8 fL 6.6-10.1 [facility] Platelets Auto (Bld) [#/Vol] Ordered By: Josué Evangelista on 01-13-2023 Platelets (Bld) [#/Vol] 268 10*3/uL 150-450 [facility] Potassium [Moles/volume] in Serum or PlasmaOrdered By: Josué Evangelista on 01-13-2023 Potassium [Moles/Vol] 3.7 mmol/L 3.5-5.1 [facility] RBC Auto (Bld) [#/Vol]Ordere d By: Josué Evangelista on 01-13-2023 RBC (Bld) [#/Vol] 4.46 10*6/uL 3.90-5.60 [facility] Serum or plasma anion gap de terminationOrdered By: Josué Evangelista on 01-13-2023 Anion gap [Moles/Vol] 9.8 mmol/L 6.0-15.0 [facility] Sodium [Moles/volume] in Ser um or PlasmaOrdered By: Josué Evangelista on 01-13-2023 Sodium [Moles/Vol] 136 mmol/L 136-146 [facility] Urea nitrogen [Mass/volume] in Serum or PlasmaOrdered By: Josué Evangeilsta on 01-13-2023 Urea nitrogen [Mass/Vol] 11 mg/dL 9-23 [facility] WBC Auto (Bld) [#/Vol]Ordere d By: Josué Evangelista on 01-13-2023 WBC (Bld) [#/Vol] 10.3 10*3/uL 4.1-10.5 [facility] XR cerv spine AP/LAT/FLX/EXT on 12-06-2022 XR cerv spine AP/LAT/FLX/EXT [facility] [place] [address] [place] [address] XRay Report Signed Patient: Rosa Eastman MR#: [id number] : 1965 Acct:[id number] Age/Sex: 57 / M ADM Date: 12/06/22 Loc: XD [facility]: [facility] Attending Dr: Josué Evangelista MD Copies to: [...] Erasmo Maddox M.D.12/06/2022 2:26 PM Dictation Location: [place] [address] Transcribed By: [facility] 12/06/221425 Dictated By: Erasmo Maddox DO 12/06/221421 Signed By: 12/06/221425 Normal [facility] CBC AUTO DIFFon 08-10-2022 BASO # 0.2 103/ul Critically high 0.0-0.1 [facility] Comment on above: Performed By: #### C BC #### [facility] [address] [place] [address] Dr. Mars Sanders Basophils/100 WBC (Bld) 2.0 % Normal 0.2-2.0 [facility] Comment on above: Performed By: #### C BC #### [facility] [address] [place] [address] Dr. Mars Sanders EO # 0.5 103/ul Normal 0.0-0.7 [facility] Comment on above: Performed By: #### C BC #### [facility] [address] [place] [address] Dr. Mars Sanders Eosinophils/100 WBC (Bld) 5.7 % Normal 0.9-7.0 [facility] Comment on above: Performed By: #### C BC #### [facility] [address] [place] [address] Dr. Mars Sanders Erythrocyte distribution width (RBC) [Ratio] 12.4 % Normal 11.0-15.0 [facility] Comment on above: Performed By: #### C BC #### [facility] [address] [place] [address] Dr. Mars Sanders Hematocrit (Bld) [Volume fraction] 41.8 % Critically low 42.0-54.0 [facility] Comment on above: Performed By: #### C BC #### [facility] [address] [place] [address] Dr. Mars Sanders Hemoglobin (Bld) [Mass/Vol] 14.0 g/dL Normal 14.0-18.0 [facility] Comment on above: Performed By: #### C BC #### [facility] [address] [place] [address] Dr. Mars Sanders IG # 0.02 10e3/ul Normal 0.00-0.03 [facility] Comment on above: Performed By: #### C BC #### [facility] [address] [place] [address] Dr. Mars Sanders IG % 0.2 % Normal 0.0-0.5 [facility] Comment on above: Performed By: #### C BC #### [facility] [address] [place] [address] [address] Mars Sanders LYMPH # 3.1 103/ul Normal 1.2-3.8 [facility] Comment on above: Performed By: #### C BC #### [facility] [address] [place] [address] [address] Mars Sanders Lymphocytes/100 WBC (Bld) 36.3 % Normal 20.5-60.0 [facility] Comment on above: Performed By: #### C BC #### [facility] [address] [place] [address] Dr. Mars Sanders MANUAL DIFF REQ NO Normal [facility] Comment on above: Performed By: #### C BC #### [facility] [address] [place] [address] Dr. Mars Sanders MCH (RBC) [Entitic mass] 31.4 pg Normal 25.9-34.0 [facility] Comment on above: Performed By: #### C BC #### [facility] [address] [place] [address] Dr. Mars Sanders MCHC (RBC) [Mass/Vol] 33.5 g/dL Normal 29.9-35.2 [facility] Comment on above: Performed By: #### C BC #### [facility] [address] [place] [address] Dr. Mars Sanders MCV (RBC) [Entitic vol] 93.7 fL Normal 80.0-94.0 [facility] Comment on above: Performed By: #### C BC #### [facility] [address] [place] [address] Dr. Mars Sanders MONO # 0.8 103/ul Normal 0.3-0.8 [facility] Comment on above: Performed By: #### C BC #### [facility] [address] [place] [address] Dr. Mars Sanders Monocytes/100 WBC (Bld) 10.0 % Normal 1.7-12.0 [facility] Comment on above: Performed By: #### C BC #### [facility] [address] [place] [address] [address] Mars Sanders NEUT # 3.9 103/ul Normal 1.4-6.[address] [facility] Comment on above: Performed By: #### C BC #### [facility] [address] [place] [address] [address] Mars Sanders Neutrophils/100 WBC (Bld) 45.8 % Normal 43.0-75.[address] [facility] Comment on above: Performed By: #### C BC #### [facility] [address] [place] [address] Dr. Mars Sanders Platelet mean volume (Bld) [Entitic vol] 9.4 fL Critically low 9.5-13.[address] [facility] Comment on above: Performed By: #### C BC #### [facility] [address] [place] [address] Dr. Mars Sanders PLT 251 103/ul Normal 150-[address] [facility] Comment on above: Performed By: #### C BC #### [facility] [address] [place] [address] Dr. Mars Sanders RBC 4.46 106/ul Critically low 4.70-6.10 [facility] Comment on above: Performed By: #### C BC #### [facility] [address] [place] [address] Dr. Mars Sanders WBC 8.4 103/ul Normal 4.0-11.[address] [facility] Comment on above: Performed By: #### C BC #### [facility] [address] [place] [address] Dr. Mars Sanders D-DIMERon 08-10-2022 D-DIMER 0.35 mg/L FEU Normal <=0.59 [facility] Comment on above: Performed By: #### D DIM #### [facility] [address] [place] [address] Dr. Mars Sanders D-DIMER COMMENTS SEE BELOW Normal [facility] Comment on above: Result Comment: Incr eases [...] hospitalization. Performed By: #### D DIM #### [facility] [address] [place] [address] Dr. Mars Sanders PROF 14(COMP METB)on 022 Albumin [Mass/Vol] 3.8 g/dL Normal 3.4-5.0 [facility] Comment on above: Performed By: #### H ALESSIO, CMP #### [facility] [address] [place] [address] Dr. Mars Sanders Albumin/Globulin [Mass ratio] 1.0 {ratio} Normal [facility] Comment on above: Performed By: #### H ALESSIO, CMP #### [facility] [address] [place] [address] Dr. Mars Sanders ALP [Catalytic activity/Vol] 127 U/L Critically high 46-116 [facility] Comment on above: Performed By: #### H ALESSIO, CMP #### [facility] [address] [place] [address] Dr. Mars Sanders ALT [Catalytic activity/Vol] 30 U/L Normal 16-63 [facility] Comment on above: Performed By: #### H ALESSIO, CMP #### [facility] [address] [place] [address] Dr. Mars Sanders Anion gap [Moles/Vol] 13.5 mmol/L Normal [facility] Comment on above: Performed By: #### H ALESSIO, CMP #### [facility] [address] [place] [address] Dr. Mars Sanders AST [Catalytic activity/Vol] 20 U/L Normal 15-37 [facility] Comment on above: Performed By: #### H ALESSIO, CMP #### [facility] [address] [place] [address] Dr. Mars Sanders Bilirubin [Mass/Vol] 0.3 mg/dL Normal 0.2-1.0 [facility] Comment on above: Performed By: #### H STROPN, CMP #### [facility] [address] [place] [address] Dr. Mars Sanders Calcium [Mass/Vol] 8.7 mg/dL Normal 8.5-10.1 [facility] Comment on above: Performed By: #### H STROPN, CMP #### [facility] [address] [place] [address] Dr. Mars Sanders Chloride [Moles/Vol] 105 mmol/L Normal 98-107 [facility] Comment on above: Performed By: #### H STROPN, CMP #### [facility] [address] [place] [address] Dr. Mars Sanders CO2 [Moles/Vol] 25.4 mmol/L Normal 21.0-32.0 [facility] Comment on above: Performed By: #### H STROPN, CMP #### [facility] [address] [place] [address] Dr. Mars Sanders Creatinine [Mass/Vol] 0.98 mg/dL Normal 0.70-1.30 [facility] Comment on above: Performed By: #### H STROPN, CMP #### [facility] [address] [place] [address] Dr. Mars Sanders EGFR-AF TOGOLESE >60 Normal >=60 [facility] Comment on above: Performed By: #### H STROPN, CMP #### [facility] [address] [place] [address] Dr. Mars Sanders EGFR-NON AF TOGOLESE >60 Normal >=60 [facility] Comment on above: Performed By: #### H STROPN, CMP #### [facility] [address] [place] [address] Dr. Mars Sanders Globulin (S) [Mass/Vol] 3.9 g/dL Normal T [facility] Comment on above: Performed By: #### H STROPN, CMP #### [facility] [address] [place] [address] Dr. Mars Sanders Glucose [Mass/Vol] 102 mg/dL Normal 74-106 [facility] Comment on above: Performed By: #### H ALESSIO, CMP #### [facility] [address] [place] [address] Dr. Mars Sanders Potassium [Moles/Vol] 3.9 mmol/L Normal 3.5-5.1 [facility] Comment on above: Performed By: #### H ALESSIO, CMP #### [facility] [address] [place] [address] Dr. Mars Sanders Protein [Mass/Vol] 7.7 g/dL Normal 6.4-8.2 [facility] Comment on above: Performed By: #### H ALESSIO, CMP #### [facility] [address] [place] [address] Dr. Mars Sanders Sodium [Moles/Vol] 140 mmol/L Normal 136-145 [facility] Comment on above: Performed By: #### H ALESSIO, CMP #### [facility] [address] [place] [address] Dr. Mars Sanders Urea nitrogen [Mass/Vol] 14.0 mg/dL Normal 7.0-18.0 [facility] Comment on above: Performed By: #### H ALESSIO, CMP #### [facility] [address] [place] [address] Dr. Mars Sanders Urea nitrogen/Creatinine [Mass ratio] 14.3 mg/mg Normal [facility] Comment on above: Performed By: #### H ALESSIO, CMP #### [facility] [address] [place] [address] Dr. Mars Sanders PROTIMEon 08-10-2022 INR Coag (PPP) [Relative time] 0.95 {INR} Normal [facility] Comment on above: Performed By: #### P T, PTT #### [facility] [address] [place] [address] Dr. Mars Sanders INR GUIDELINES SEE BELOW Normal [facility] Comment on above: Result Comment: EDU RED INR: 2.0 - 3.0 CONDITIONS NOT LISTED BELOW 2.5 - 3.5 FOR PROSTHETIC HEART VALVE REPLACEMENT 2.5 - 3.5 RECURRENT THROMBOSIS Performed By: #### P T, PTT #### [facility] [address] [place] [address] [address] Mars Sanders PT Coag (PPP) [Time] 10.3 s Normal 9.0-11.6 [facility] Comment on above: Performed By: #### P T, PTT #### [facility] [address] [id number] Mars Sanders PTTon 08-10-2022 aPTT Coag (Bld) [Time] 29.9 s Normal 22.3-36.2 [facility] Comment on above: Performed By: #### P T, PTT #### [facility] [address] [place] [address] [address] Mars Sanders TROPONIN, HIGH SENSITIVITYon 08-10-2022 HSTROP 12.3 pg/mL Normal 4.0-76.1 [facility] Comment on above: Result Comment: CUT- OFF POINTS HAVE BEEN ESTABLISHED BASED ON THE FOURTH UNIVERSAL DEFINITIONS OF MYOCARDIAL INFARCTION. THE UPPER REFERENCE LIMIT (URL) OF TROPONIN, DEFINED THE 99TH PERCENTILE OF cTnI DISTRIBUTION IN A REFERENCE POPULATION, HAS BEEN CONFIRMED THE DECISION THRESHOLD FOR [place] DIAGNOSIS. Performed By: #### H STROPN, CMP #### [facility] [address] [place] [address] [address] Mars Sanders XR CHEST 1 Von [...] by: MANI HARGROVE Date: 2022-08-10 18:[address] [facility] MR head/brain wo conon 07-08 MR head/brain wo [facility] [place] [id number] MRI Report Signed Patient: Rosa Eastman MR#: [id number] : 1965 Acct:[id number] Age/Sex: 57 / M ADM Date: 07/08/22 Loc: [facility] Room: Type: [facility] Attending Dr: Candida Alexander PA-C Copies to: [...] Rob Funez M.D.07/08/2022 1:37 PM Dictation Location: [place] [address] Transcribed By: [facility] 07/08/22 1330 Dictated By: Rob Funez II, MD 07/08/22 1336 Signed By: 07/08/22 1336 [facility] Folate [Mass/volume] in Seru m or PlasmaOrdered By: Candida Alexander on 06-21-2022 Folate [Mass/Vol] 7.4 ng/mL >5.9 [facility] Comment on above: Folate reference ran ge: >5.9 ng/ml The WHO technical consultation on folate and vitamin b12 deficiencies has determined that folate concentrations less than 4 ng/ml are considered deficient. Free T4 (Free Thyroxine)on 0 06-21-2022 Free T4 [Mass/Vol] 0.77 ng/dL Normal 0.61-1.12 [facility] Comment on above: Performed By: #### V [id number], T4F, TSH3 #### [facility] [address] [place] [address] #### METH #### [facility] , Laboratory - Chemistry and C hemistry - challengeOrdered By: Candida Alexander on 06-21-2022 Cobalamin (Vitamin B12) [Mass/Vol] 369 pg/mL 180-914 [facility] Methylmalonic Acidon 022 Methylmalonic Acid 241 Normal 0-378 [facility] Comment on above: Result Comment: This test was developed and its performance characteristics determined by [employer]. It has not been cleared or approved by the Food and Drug Administration. Performed at: [facility] [employer] [id number] Litigation Services Manager: Millicent Calderon MD, Phone: [phone] PERFORMED BY: [place] [address] PATHOLOGIST [employer]ADOW [employer]APH WEIGHT OPERATOR GENEVIEVE CANNON M.D. Performed By: #### V [id number], T4F, TSH3 #### [address] #### METH #### [facility] , Serum or plasma methylmalona te measurement (moles/volume)Ordered By: Candida Alexander on 06-21-2022 Methylmalonate [Moles/Vol] 241 nmol/L 0-378 [facility] Comment on above: This test was develo ped and its performance characteristics determined by [employer]. It has not been cleared or approved by the Food and Drug Administration. Performed at: [facility] [id number] Litigation Services Manager: Millicent Calderon MD, Phone: [phone] TSH DL <= 0.005 mIU/L QnOrde red By: Candida Alexander on 06-21-2022 TSH Qn 2.46 m[IU]/L 0.45-5.33 [facility] Thyroid Stimulating Hormoneo n 06-21-2022 TSH Qn 2.46 m[IU]/L Normal 0.45-5.33 [facility] Comment on above: Result Comment: PERF ORMED BY: [place] [id number] PATHOLOGIST [employer]APH WEIGHT OPERATOR GENEVIEVE CANNON M.D. Performed By: #### V [id number], T4F, TSH3 #### [facility] [address] [place] [address] #### METH #### [facility] , Thyroxine (T4) free [Mass/vo lume] in Serum or PlasmaOrdered By: Candida Alexander on 06-21-2022 Free T4 [Mass/Vol] 0.77 ng/dL 0.61-1.12 [facility] Vit. B12/Folate Profileon Cobalamin (Vitamin B12) [Mass/Vol] 369 pg/mL Normal 180-914 [facility] Comment on above: Performed By: #### V [id number], T4F, TSH3 #### [facility] [address] [place] [address] #### METH #### [facility] , Folate 7.4 ng/mL Normal >5.9 [facility] Comment on above: Result Comment: Rosa M te reference range: >5.9 ng/ml The WHO technical consultation on folate and vitamin b12 deficiencies has determined that folate concentrations less than 4 ng/ml are considered deficient. Performed By: #### V [id number], T4F, TSH3 #### [facility] [address] [place] [address] [place] #### METH #### [facility] , Coding Summaryon 02-13-2022 Coding Summary [employer]Base 64 YbfxtazaHLe5cEu+PGhl YWQ+YP5ROUNzA40jlHCd oS1HL9gJKJ5CNICVOBSB YN9CVZ1lkAF3OVbvF3Qe biAv IfnufWCmZU36JRe8JIN8 nUigWGwaoQ6rjEPoH1u7 OoXwCD10aK45SMwdFRRb JeU9VaHtjdcvyDDc L2sfKnWelOMoVwh+PHRh YmxlIHdpZHRoPScxMDAl EcQlwUunMO8dSi7bCPWk LWNvbGxhcHNlOiBj j9qjOMRiLZdtIR0ohMne H9UdpLO9YIOwk2k1Go17 dHI+MMIfPJN0gKvuHMmh y851CwCmu9ajDUO3 nZZuRXafUAR0X21zg2U2 AOEyOZTsWSU7uQX4fY8y fHoblzzvJ4UsbWCoGqV1 JFY9yQRnkE1siFhj nynydG3vGwf+V01IKB0W CDXWRQ2CTcj9X3PdAbnn dHI+EJ24XNEmUR05aEGa rZNww8qtvMn8CbLf EZFnMKE6xGueWDyft0Cc GJIfG37pxPSus4C6ACHt zKukzBHgMgVnnMV7oS7k MIwvijoit8lmqnie Qqdns9nkhq68pD89X14c WAygHEMkITA7ZOJuSNEj dKrxty6eqA2xSx8+IDxj b9mhz1talIj4HhKn FFVfadIiiHhkQFH1o7Up Tp15E1WokKwui3DtObn1 lh95fPPpi6C5nSK8VSvb NKPgbF5oNRbnXyY8 DTEtIeJbsV02qFRjIXml Et8bqJvbtZboHM8nDAPf tqtqPROjoJ0dZSPurGRd wPspTU1rBLBgbqux a456TnZlCJM4OMJgqNZp Q1GwgX8fGcShMUIwEIAg G2YmkOPpZKniK658VLdh RuB4HQFxxhJpU6Jj DXOhgZxnIbL8a5B7Oy5B r9GqhqaiPYN3WTwfOHO6 BcU7IoNoKyB2H4WvMbz7 NKZsuJdvNH4lA5Ih NLYjpzdwcunbpML0PXJx FRSzkL70gOKdCYmlBk8b a6G8g194AGTpSBVucA93 Xr9pyEwbCKWefADC kV5rqbpml4dixyfeNrVx PZOpNXu1QNv7HQNouMua PdRfRFD5TyN8HKX2qHTh hJ8ajQqspiszfM4b Oyc+M17uiE1wFNI4QZK5 xxwzUOMinoDrNO93ZR65 V9GqAhqyaNBrxDF+PGRp niDrfLidCJ1tQvPg l6gfq6AwXVqiI3QnSAYt WMovCui1VKWfQTA6rRB4 tJ8vFHAwNIpbm3X6oLD5 J5CskoOcbr4ob6rb CPEiHIaxY44yyGBje7B8 NEGukKK9XMGkgFzjDvXc dD37Gav+JCFaeLkql5Ic Mthox5uwu5mtaLf5 IjMwJSIgdmFsaWduPSJ0 o5MzWw99S58kKYveZMEz JHUgVUEpJQDxgCtwas0h vV9cDa1+PGNvbCB3 qMH6oC6cJVEgOrQ2RDhx C043KcMunFOiMcuop4cf r2fhqJd4TlYoYWRpyuXr kFqtHPP3m9KzZr87 O88aDKlxAYPfKOKiZIFn ELIywSegfq0khV3iUu5+ HH4om5hymd05cP50mYW+ JLEtUFO8wNboDIhw PUFynQ3pQJonYvX5DUZw UnYpuV52uVYpQXtwEg6w eMqzmPupUH6pUJGzpkgh q646ZsIqc5igEDAe qVCvYVvuHAA5U12mn5Z9 RTRhSGZpKNL8iBX1uO9y bGlnbjogbGVmdDsgdmVy aFrzDPmyWNvzN181 IHRvcDsnPlBhdGllbnQg ItNzOHp7M0SiHft9HEJz uTgrPC9bpDScGAsjMw7r bDptiAapST9lTGRj thcpg830LwArs4fnWBJi yDHjAQfrSKO6L73fy4E0 QTGhFPBkWOW7gTO8rS0l bGlnbjogbGVmdDsg jbYqiXjaBEtcCBwlD704 IHRvcDsnPkJpcnRoIERh xQW6LH39PQ90aXBza0V3 vMW3X9KkPUKrulhm hwxufSP4SEIaXWFglE15 Gu4tzFcmCo4kSXDhRLP6 JRYzoWNpP4RbsP1sAnTq DPVwNSHyD0SxuVWn AWytA873JYksItW4KGVp tnCdU8ApVACzrVzsZtZ1 c7L9Xl2JZ9K1EY95MR49 zBOgg1R6bOF1Y7Kw PCLrfqgxtucrkHT4VWBg TDRtnU18Ji8aeThiHb0y CFHdZUC2EPTtwMXjK8Tf wX0pIbUlCTObRPOp C9LumXIdLRgpD073MVph ZeL9GYFaehBnE4AtHCLk fAclGwH1a7J6Cu3LMAo7 QB29BN09jNYcn6Y2 bUF1D3RtSCWtywyteovk mXL0QDKdUYCuiI61Bz0i jQenUk6wMVFwPSM6HAKe mNXuA6ShhL4zLmVp QILkXKRbC0RczTPbTIrp V873TDfgBiH1SNWjjuEc G3VuFAOuoLadIfJ4i1T5 Du3ZTIFsZM70WME5 bYW0ZS79KO61K7YxZyed dGFibGU+PHRhYmxlIHdp ZHRoPScxMDAlJyBzdHls ZS7bCd8uYAJpWFNz rJmmkUYnZuUcp6coRQUh OQjzAE6xqPegK8OmlZB1 PPFni5c4Ju86N20zA6Gr dXA+ZBCqnYK9kXV1 jG2oWsBrBaU7HYjdW172 MkOuaTUaHtadt9fpb4wg uVs3WbG0EQTahsIoiWcg WQV9t1FyVc43X41r IHdpZHRoPSIxNSUiIHZh tSxgby8bmJ2ePi2+PGNv cBM7sZK6jL3jGxUbWsM1 TMxjG799MrJkaIHw Oldrf4hup2xreJo5UjSs RZIvnzFvcXomEFW1o4Fy Gz86T7PfjLbae9BvTkj3 yx34gGAyf2M3oGI5 P7KqHUZsvrcwmWCphGzv YD5eRFTriwirGRYktC4v WGWfE6u1VsUdEqZ0CMof Z0SuwfR9MXWkmYIr JNdvPIC4F12tx6H0RJXv TJSkXFF5sCR4rH1hlBsa bjogbGVmdDsgdmVydGlj VHzvBKvpX489UNJt aNdyJUNxjI2wNXXkqLTc aCgxZR1kGMTycsyaVzGS F0LOW11GKEBDL6JSTeAh IGcGJT54P6OhElr0 PLQyuVegUP3cbHDzEHtp Tx6paYujuIysNN8hRSCc blueFJKhuS4gOBYifSRn oNvaMF4hMWBsumot i289BlAqUZW7LSVwtYXk A5MduC5hNaYhQXCbGLQh E1TotQFmBAvaE524ROgc GhF7IVGwokWaT4Yh EDFlcNdaGgU0s9G3Hs4s DR3wTi2cXMP3LS20OA21 yEOxw6Q6jMR3M7LdXESq vutqdgdedFU2DAJy NRVbiS59qJViJFpiDq9m e9E5p552FKIkCKDohS72 Tk4iuOsrBMRhdOSSeB8d ztuqm6qigzflMuFx LHWoFEa0INe5WGJlyDyy IaAtPQY2JhG4GQF8eMNo yH5qrSfuwazmhT6vZmn+ RKRiYZRqdiL0M4Sm Aqq5OCRxgLcqFD6mtFXj KUqxRq7chFnmbBxqKU2q TBWibktfEXHvvW7nNDFt sALwoMjlWF4wMQEi ymcbl271ZaVaPHI8CZZg lQWaH9AubV7aDfQcXLQm ZIVxF2KpoXPtDHmiI475 HJgcXvQ4YNMhzrQd C9LeIOPdeYovUyA0q2B1 Ei2FRIsYAI50HI56bBVx z6T0sLC6E3EjNRPmkxev ntkipKC3AGLbJMRd oU96eJUpHRuiAk3bv6K6 x292ZZVdJQZveY52Ai4t pFrlIQOwuUJEeO0ofubr w4mzmzvhZsBvCMPj JJk3PCr4WDRipApcExIi DGB8NbM0OQK3hGNfkI6o nXdfrrfyyC0bFko+T1A8 V1CmJvrysFJ+PC90 MWCjKI31zFTgzIAij8iu hQg1LsQhCMBvCUF4vHfl WGnhi5AxVPAwF97zzHKt j3T6TYGadGtqbGRz FiGnlDF9dU5gQHkfghqo t7hgyuzmJrleq7lrdv30 uN78H62wJRppFYOnNMPt RSGbQAHjbDdvbu0p sS1lHw6+YMAgmDT3sOJ4 oI3rWhPuDmP4EOczG724 CsCamISqWuifl5kuh5rl yFh6UoXkSWQjinIc rPfrSCI8h9BlPc24L25w IHdpZHRoPSIyMCUiIHZh cPnomy0rlN1zYj4+PC9j y5aajy21yH61nZT+ IHKrGJL4tGzvAQxeWQZk fX4nFWudZvE5QBGhZvSl jH76lRJxLOsjLr6lpUhy bLzuDR5qWEUigutb b175JtQqz3qlNRUqtCOi FZddEHR1O67ej5O0LCCu ROQvOSM8aTP5qQ5ewClp bjogbGVmdDsgdmVy dJakFDzmVDziP789XRFd aMcjDvLosBFuT2izclZG YR7gZokvfOI+PHRkIHN0 rFovMFwlNODkkL0s NKUyF0k9HfVeTeY5JZmt O1TfgfB5XGUmvZHxJDPx dRDTwC2yebjke2njkyjf MyNfYMYyIRc9UZk9 OMElnJleWyMpZSL9EfO8 BZJ8aVXflW8jhQcrzfns eH2qDqu+RklOOjwvdGQ+ AGHgLBL8wZciGRek MSBrgG7zOPNwG5f9FjKl CgT2QKqoT7AkxkW7WACu kZSnOPDfiUUQgF6ddixr e7cuaoguYdCiGGNj HAn6GXz4UBCznLuuCsJe ADE1WjP2UCC9hRGuhF0j cIwrwijtvN1qYqb+TVJO OjwvdGQ+PHRkIHN0 oMwsGSxnOEEulJ7tRLVn P2c2YtFlAnO9DIbcK0Dc dcX0OOXoqHBvUJFixARV xX5jzuwpk0ojictz EhZuMCDyTVn7WZn0SLMz sLpoZuWlVNN1XoC1GDO4 sSVrtA0ynFxaebfycJ4h Oyc+BEL2BWK2RI16 QM32G5CsLbwysZXxkZT+ PHRhYmxlIHdpZHRoPScx YNUqEfHggOxuTG1rKh0p ZGVyLWNvbGxhcHNl OiB (more content not included)... [facility] Coding Summary HTMLBase 64 PbxtyyguUAz3eRy+PGhl YWQ+GM8MEZNgV96lnFHj pD5TP9vXAR7VWDHWTYXN PY6RGW9hqSA2UVooS1He biAv RsqxaCYtFO18AFs3ENI0 kSszMDztwQ9msSMwS8d3 JyAjJC91nO73VTyrUWNp DfO4QcVinvvboWUi U9onAiGckMGeOcf+PHRh YmxlIHdpZHRoPScxMDAl JrRpoVzjLU9oTi0tTNNy LWNvbGxhcHNlOiBj d7ekKJMiUDntMQ8elRyy I9XmhDR0CZRsl8r2Uz64 dHI+OWRkQXB5eVkbOBwu l196AdBud0glAIF7 tBDiTJfvNRY8Q54gd9Z5 FPZpSBCzFGA7bUJ2dG7f qMvrbbwlM0BjmECuDzO9 NVR0mFZylF0piSzt cbmssA6mRum+U49XFB4T TLHOBF9RGuq1C1ZzWdyy dHI+HS67NMEyBZ64pPAe fKKsb2odhCy7UjCg IJLxOCL3rTdgUQztb0Fy HEZaD48pfZMgq4U5DRQz vOknnJPpZvYkeVK3pD7l YUcbkjpiy7ybwxsh Javqt1rnwa13uU37P00n VIqdQCJeIPX1DYWlZNYh rYhbuq7ziW7sFb1+IDxj b5ayy7bqnTh0OrQt YCFbbwCmmLhvGUM8g0Et Tj14C9YlpVtey1UeCaa3 wq10hWRif3P3hBS5FLgx EJOgmM1oNCuyZfX4 PIVfPjHlwO63dJThRVzs Qi8dqZruqIjbUF0cXNRi tebcJDFmwT3yZSPuwFHz aCclME8tHEUumlni t251SpCiPGA1RMPtkPHu W7TkzU2cKgJgHHRfWUIw T5FipJItQIpnI124ZGbz JgB9QFDghuRvB8Gr JFLyyMsvOoW3i3P1Jg0F o0AsnciwRJW8HFdsDWH3 QrZ2MiZkTcW6I8XdEjk1 MYBobRuwUS1iE3Kg XKTgnywpqovbwNL2PYUx HOXrjE62vGYuONjtBh0v f8C9t885HNYzEXEfmW57 Ze5hxMzbJXMpdWYX tL0boigln8fvnmsaNwJs URMoFRn1MGf5PTUwkCcy PvLgFSG8IgR4KGI5tKWf dQ8qaFqsemkscL9e Oyc+N87alC4jPHG8DYE8 qimcCLHkpwEvPA85TF28 R9LxVrhahIXotBZ+PGRp ijXuaAfrQW3mRzGp z4xmf2ZsOBrrM0UwIIYq YVzfDub3REKcEYK7qFR7 sX2aRCMuWItoa8V3hXY3 S7VpwfKhak0wc6im TGXqZBbrJ39ptRSmu9V9 XULkeOW2MWKcrEguMrEp fL10Qiq+WUMmgJscm5Yw Vuuir4mrx0bbwLe1 IjMwJSIgdmFsaWduPSJ0 x8GsDr59K12yINtrTVYf TFWuGCAsKCCdxSnvfu6v cO8tFh7+PGNvbCB3 xNI2cZ4hSBEhAdM2DApv Z060ClShkSOdQqeqr6bg u4lqpKd9BgDaBFZdgsBm qZwqSVY0c5RuXn13 P97sGDsyZLNbPAMcVJJc KGVynOclgw7gwO5jEx8+ PZ6vz6uqqr45kS29eWA+ RSXbSOX3nLndHUyy KEOzvI6gPMphTfR6QYWb DjMvhI25cEPyMJseRx9n dNfotWfrKD0eCTCkviav d711GtQxt7onFRGd zVCnFYjjFLT8T91vw2B4 TCJfMAUyVUX0cKL9mA4g bGlnbjogbGVmdDsgdmVy rCswQGutEZljU211 IHRvcDsnPlBhdGllbnQg PfHaYKp0S1VnVgt5KXRu gIkxTI6lhFLfAPvpZz3t eXsacXadAN8bPROn cfzru655JoWck5svVJZw hWYkHIcbGFZ8Z23vd4D8 LLXlOESwKEU6nWC1dL6b bGlnbjogbGVmdDsg nvNtaMnwNTjoREihH103 IHRvcDsnPkJpcnRoIERh xHJ7XL85SL85sKLbz8O6 gQD2K9KiCKGndluo qrxsnSH5VTEsIJGiaT96 Zg2hkHudUi1fVYWcDCS9 OXBecSZmP6SwyS3xArTn AQGkJWIwI1NuhYCs CCodB698EBlrXpD7FQCa mlOfB2BcURCydCnrBtI3 y8J0Hz0LI5V7YY27ZS31 gIUro2Z6wUG4E6Tt KKDwprspfbueeDW1DVQj ENRjlM93Qn7bjLtbIj7t NECuSTE0JZSixJPzD3Ic wO3sPeTmOSYbNJAj L4KojKYiYBocJ897CSog EjH6KPSsnhOjZ3AnECHr uDjzVrD7y9W4Nn2YKRh8 YV75OM41rRDcg9H4 zFE6N6YcNXPbsthfaazt nON2NJVeTCUubZ95Wr4m rBzvCk2yBHNnRBN7OSEg bAWtH1CglT9jTmXc JGDdQEUfF2VoyWOzNDtn H744MGzhRiQ3UJXnrcHy W3BtGLXdkHafCkY4v3L4 Fq1RYUQtNU55KCS1 pAB2YT09IZ20M1GtFcmz dGFibGU+PHRhYmxlIHdp ZHRoPScxMDAlJyBzdHls QS9sWh3fLTMvONTg cOiajHPfJpJnw1auHXPh PJhqQA7ecIstU4YyeCA1 XMRmh2w5Mg81J46cI7Zb dXA+WOPulQN2jTQ1 zZ4rNsJrXdP7JMxvO847 IwDkoEXpAodlv9nus4hb xMb7JyN7PGFcgiQsrZjk CGX5u4IyBo41A40i IHdpZHRoPSIxNSUiIHZh zLssjb5ljZ9oDk1+PGNv iEQ1sTL2gT4sSwHzWjH2 PIebW097SrBlfJXw Vqfln1wrk7wctKw7DkQq GYYakwZmuEzeHUH5c0Nd Ak07L6YieZwmf2FuZwu0 kl29fQNhv0K6eKX4 Q3JqGTBxwglhaAKdmNxl GW8nZFNbozunAGFvxP6u DATbE3v6UpHwJuJ4MErp I3YawyQ3QUEcwVFc LXecHPQ9X10yg6P7WIWo MJApYES6xSL5lP0wtCwt bjogbGVmdDsgdmVydGlj YIeuEVbmH578DJVg hHzzRDOecS0tLTMmtCGp iTbwOW1rFGSllsinSaJF F0IHX38JIEYMK6OKVqEp QHdBNJ78T0PqLqe9 DMFazKjhFB8atICcRYes Lg1adZfceSesJE3sUFOs epsrCGYmvR3eGXGwlQNv aXosBC5jCOPbmbny n389HtCnIAO3XYEtnCHv K9XdxX5lSiXkRWKmVNWd O6IeuMIcBDcyJ048EPpd UnW8OGVzzuYoR2Yo PMYioRsbDlX5i3O3Kh3r DN3gEi5iOPO7LM02WX09 wOQvp7U1cBH4D0OoYIAe jbxjtayfsXF6YYTb VLFedZ96uIWfHUabVw7o d5W4s595PVBnSKNpqT29 Sm6dfTdyUGTdrSIPhW2u ozbam3acfraqElQc ACFdTQh1QVw1QMKynElu IrEoYHX6OmB1RDT5cDFx bP7cyXkjbekpeL6tIjh+ XAKeEHYvznJ3Q9Iv Tzn3WAVkqJnzCC1gqYVv KFkoOk2cxRvodChbCQ3y YCAqiqesZVHdoB9uOVTs gLNzzYuvCJ0rIYYr wvnkb629CqBjNQZ8PAQx uFHbD1VvxT7xUsTlQUPf FBZbW2QowWPmLGmkR995 WHazYrM4UJVyamWf X5MtAJWclTboYvZ1a2L9 Re2IVVrRBQ73TG30cLIj g7F0kSN6X5ZuLUQhdvwa ztlwpLN5CNQrFPBt yX16bBKeALvmQr4oy8D1 t703IBEaXBOgyL26Te7j kNmlAHVaxLSUjB8inibv w5smirsuQaJyJFLa SYw6HBx8NNRlgGcgJvBd YHC8VoB8WBD0gILgmB6s nOxlvemapP5dPip+RW1l tsjidvG4FP03LN41 U1OqXlhuuFXtgKP+PHRh YmxlIHdpZHRoPScxMDAl WpNozYbtNS8pRi3zOBQd LWNvbGxhcHNlOiBj o4miDWFnADnjHT8xdYja H6ZylSE5PXHnw2i6Lp15 V39xI0NpxKB+PGNvbCB3 iBA3sK4rBvNaDyV7 KXzjB340OtMdtOPcMfgf i4iht0gxvRu2CbCmEXDz rzFltRrfSJE4h0ZcBh57 N82lFYxdUQPnNGIy EXVoTDPhkHwowu5bnR8u Ii8+KTDsjYH3nZZ9lV7o YzXaQbS9OGrgP400NiWd jFScCmgqL33dT4Xr dXA+KWAfLwa6KFWpfIoq UV7pnNDkDYhiHe3xPFV8 XxOsMfDuMPnjB8UsYTSp labaeovxaHR1DCOg KVOqiW54Th7fdCgbRs1d YHMtKMM5JPWjkXCxE1Uj nI6bIgZlUSQdNSMxR8It tABlYAneJ671LBnz BqA0ETBclwMpC7RzRPPb eOkoSeR7f6S4Rk8RzSss jATpET2sPyQcEVn5F4Tp Cvs6EUNqeTzmKA2d aHLjBMhsZv5zqHqhmXts BL0hXJPkuodqr333ZbIb f3wbPKBudXBqMLviZCO7 B73mm5V1JXWcOWEw WSN6fKW1cL5nfImtoyxd bGVmdDsgdmVydGljYWwt OPzlL142NQVcnQeeRxKA Ovo2O9RkToy4KBXb cZjyBP3qfXPqQJciHu4x tMqfbDvqPQ6eVEGxeeii q290ZhVnm5upXORpcDJk AExdPSH5K07he7P0 HARvYMRyMQM9iKY4jU6p bGlnbjogbGVmdDsgdmVy bMreNEfyGZtdV264VHYp pTkeMr6DUqx8J1Fy Bth3FJIufDgwLT1yqRMm YQlvFp4nmCwxqNlkXJ7p BZDciqzes753RrIaw0wr IDEwcHQgVGltZXM7 M89ul8E0MGAhJFDqDUS5 tEM5qU3atBfyrnnnkPIe dDsgdmVydGljYWwtYWxp M303FUNjtVmbUlIx eWVyOjwvdGQ+PB34fr06 I6WcSqzjXsg8UFJoVGW3 yUA0hF9vICPyMRbwi5O8 jCY3F1FlbhFmfr8f b2x (more content not included)... Normal [facility] ED Clinical Summaryon 2021 ED Clinical Summary [facility] - Emergency Department [address] [place] [address] [id number] ED Clinical Summary PERSON INFORMATION Name: ROSA EASTMAN Age: 56 Years Sex: MALE : 1965 MRN: Acct#: Visit Reason: Hand pain-swelling; RT HAND SWELLING/NUMBNESS AND TINGLING Arrival: 02/05/2022 14:13:58 Discharge: 02/05/2022 15:08:00 LOS: 000 00:55 Check In: 02/05/2022 14:13:58 Checkout:02/05/2022 15:08:00 Address: [address] [place] [address] PCP: Britt Goodman DO PROVIDER INFORMATION Provider [...] Follow-Up: With: Address: When: Andrew Mckenzie DO [address] [place] [id number] Within 3 to 5 days Comments: Diagnosis [...] for reevaluation. Prescription is electronically sent to [facility]. Return to the emergency department for worsening symptoms or concerns, acute shortness of breath, chest pain, abdominal pain, nausea or vomiting, or any questions. DIAGNOSIS: 1:Cubital tunnel syndrome on right; 2:Paresthesia of hand Patient Understands: Yes - Patient/family/careg iver verbalizes understanding of instructions given Comment: Normal [facility] ED Note-Nursingon 02-05-2022 ED Note-Nursing Pt presents to the ED with right hand numbness and tingling that started Friday. Pt also states swelling, none seen at this time. Pt states a hx of surgery to his right Arm for a pinched nerve 3 years ago. Normal [facility] ED Patient Summaryon 022 ED Patient Summary [facility] - Emergency Department [address] [place] [address] PATIENT DISCHARGE INSTRUCTIONS Patient Information Name: ROSA EASTMAN Age: 56 Years Date of : 1965 Reason For Visit: Hand pain-swelling; RT HAND SWELLING/NUMBNESS AND TINGLING Arrival Time: 02/05/2022 14:13:58 Primary Care Physician: Britt Goodman DO Attending Physician: Lennie Wilcox MD Comment: Visit Diagnosis: Diagnoses This Visit Cubital tunnel syndrome on right (G56.21) Hand pain-swelling ([id number]) Paresthesia of hand (R20.2) Prescription Information: If you have been given a prescription for narcotics, seek immediate medical attention if you have any difficulty breathing or any sudden status changes such as confusion and sleepiness. If you or anyone you know is experiencing suicidal thoughts, mental health, alcohol and/or drug addiction problems; contact the [facility] 02/06 Crisis Hotline -Text 4HTJP uq 283620. If you received any narcotics, sedation, or [...] documents With: Address: When: Andrew Mckenzie DO [address] [place], [place] [id number] Within 3 to 5 days Comments: Diagnosis [...] for reevaluation. Prescription is electronically sent to [facility]. Return to the emergency department for worsening symptoms or concerns, acute shortness of breath, chest pain, abdominal pain, nausea or vomiting, or any questions. Medication Information: The exam and treatment you received today in the [facility] Emergency Department were for an urgent problem and are not intended as complete care. It is important for you to follow up with a doctor, nurse practitioner, or physician?s anesthesiologists' assistant for ongoing care. If your symptoms [...] of medications post discharge. Please inform your software build engineer/provider of your visit and for further instruction on these medications. Any specific questions regarding your chronic medications and dosages should be discussed with your primary care physician(s) and/or pharmacist. New Medications [facility] [address] [facility], [address], [place] [id number], [phone] predniSONE (predniSONE 20 mg oral tablet) 2 tab(s) Oral every day for 5 Days. Refills: 0. Additional medications on your home medication list not specifically addressed. Please contact the ordering physician if you have questions about these medications. acetaminophen-hydroc odone (hydrocodone-acetami nophen 5 mg-325 mg (Welch 5)) 1 tab(s) Oral Every 6 hours as needed as needed for pain. latanoprost ophthalmic (latanoprost 0.005% ophthalmic solution) 1 Drops Ophthalmic once a day (at bedtime). both eyes. Visit Information Allergies: Substance Reaction Symptoms Type Comments Bee Stings Drug penicillins Drug Vi (more content not included)... [facility] Provider Orderson 10-18-2021 Provider Orders [id number] [id number] [facility] Coding Summaryon 10-15-2021 [facility] BmqlllovJUe1gNk+PGhl YWQ+ND2WHYNsC75xoYWx lM4JV4bGWN2SBOBHTGGT SW4WCU7bfAV8ZDbuL3Pj biAv VgzyuHYyRC88TOe1EEP8 wKwqTRpehD3jwWGcN2d6 OwJmFL95oU26CTgpGGJp XdQ8AaMzramieQAx U1bqZsEwfOObQlj+PHRh YmxlIHdpZHRoPScxMDAl UvMgvCizPP1vIu5aGQJa LWNvbGxhcHNlOiBj v4hwDOVwFVoqTF5vqGvg I9QrnFR6HVCty2s2Li93 dHI+UNAwGTG3pKxcJBay c501JxYxa5ygTDV1 vMTwYPllVSX3L75dd5S2 FNNeJTYfFAI9wOH6cT0x uPpwsuytT3GexEEtKlG3 PLP3wACxnA8ioAwa prxugG4oSop+O93KLP6P CJPTUD8EBmb8S8GpJzje dHI+FI62GACwQN77vHFv jDNmb5yqxGh3PmUn LOKuEPJ4yNyfLBznh0Cb ZTNaR44oeYGmh8E3FTPa iSvsrYFtJsEsbNV4kH0u DVvezdpun1qxeqjq Ckfdc0hoqr42cV81Y20y GMhhZRNiSZR1TIMaATCr mZibst5rzA1lAm4+IDxj x0ovs3qznMs3RiRe RRDvpgOhuUvwVIX9k5Kx Xo59F3FvjWsxs8MsCqj3 yu17pXWln7G2lWL7IUly LJFosY7kBSfkHgR4 WBNhZeBejK41aEYeHUkl Jv8xbQtttHoqQA7gXYBi nshlZBTmeL7zRZYdtIVl aCxjVN5rNRLodoex v216QiNzIWX0WJKntUGo E2MsvU4cPzBfARYjVEZu L1LzpSXxCFhgX079DNtn KvF1XVEwwtEqQ4Ac YFEbiQrgKvM6v1N1Zu9B d1VybowyPWL4GRnpTWMy WwL1BkIcYpD0J4LjMpu3 FLHabYpoVT0hZ5Bq RCIavkxayfgaeJV4ZKBa FTClaD01mPMsSTruIm9a o9A8z191GHAiTMVdiS07 En4taJhbPLJfcLAQ tA8vmruik9wjzhpfNyCb BFMaKJe0BLh2QPEjmNxq TlIvWJZ7LjG6XLC8wCYo rL8xwAwfswtmeX3q Oyc+I35axV9nRJJ0HKE2 mkbwSWSeeuDnAE25XK09 T6NxQhmgsVIidVQ+PGRp ejByjHawDD1zRyMk m9hpr0MpWRmaR7DkPMLw VBcpJtu0ACSqPSF9wSC6 uI3yMPGhTKnpb6J6rVA1 Z7LepsMmdh8wu2yc BDXcIFggM36enSLqg9V1 SXUwrNS9SUPmlPmpLrJw kU81Ryu+WTEhkXikw1Nj Vmead3oqw6oxcAj7 IjMwJSIgdmFsaWduPSJ0 a8XhRb39S53dASnmPSZu DOFxKOTqNGHtgRcrjv5q sO5vDi0+PGNvbCB3 wSO6kM9bXAQdAoT2LOag S097LbRudEQaQjyvd2wu r7lbaSb8PzYxPKLnriBb iDrsVKX6d6JcXc27 V39lNKzwPXWgBJLnWFFs LBUipOdrvz7yuF0cNn8+ OS5zy7myui33bR31vEF+ YMGkJON3aYlnBOub IAAckJ2hMVxaXcF1OLVg YjJtvS84wJWmTRhoRt2q qGwhaCevWP0zJEQzojsd z477CsYwp4xmGSUz gLLnFRsdRZZ5O91ij4W6 RDGmNOCzVRS9qTS6pX2j bGlnbjogbGVmdDsgdmVy kHghAHffCIefT052 IHRvcDsnPlBhdGllbnQg WiTyXMy6R2UkErj9AQZb yZebVX6cbTOaFBfiXp6u qMqbmIvhDI7fEECh kwdys101BdUru2roFOLs mEXfYZicYWG3D65wx5R9 QSZgAAJxBZC8gJN9rX8k bGlnbjogbGVmdDsg gwExmKuyUAcwWUkrB379 IHRvcDsnPkJpcnRoIERh eZD9TO84IU40zTRuq9P9 yTF2K2GkWTWdmvdf crrdfLU9OAPrCXEhsU68 Vj5haFjzWs9xHXLoYFP1 VCFymIGgH4FreU2pTxIt POWlQUAiH0IcaADb THgoR119LBioWjU2LWDv buVkL2EtKILtnLypLcF2 a2Y1Hg4OZ5V3VF67LS70 mLOng9R8sEP9P4Uo MTAzyjufibinhMR2VGKz DQUlzK36Zb8llSrdBl3v LLEgIPP6AGRqdLVrV3Qc bM3hKiLsLDFgVLJr Q1LmkGXpUJfoC592XYzq UwM3QKEzuoBwT8TnVBEu qUvyEoW6h9J7If2LYMs3 WH48KT51dVRix1W3 wAM8L6XcNZUcslqjcwpf nFK2YYUvNGFgvN15Lh1h zGvaEb0fWVEnNWK2QDVj kSFsH3PwjM3eZyDv NBFsRDLuW0UodPEzTGjc X601SVheZmL7NAQhtnCc K7JfJDDlaLbjCrL0x9Y7 Je3WQYRhZN74EUG0 oIN2XB90ZG45I3UoDubt dGFibGU+PHRhYmxlIHdp ZHRoPScxMDAlJyBzdHls HB2xKt9vLAHmEHXk lEdldDWtKdKid7daFLHr ICykSD6lgBpyP0JtgMQ3 FZUmy0a6Zv96W28cG0Ht dXA+SRHheIT2bMG3 bB2rDmLuXmL8CFhhU283 WoGuzZOhRnvmi8xdn1vm nTv5KbB8FFMbyhFpcXuo SHD4w6GlGy32R04f IHdpZHRoPSIxNSUiIHZh rRjlrc0zhW1qGc1+PGNv rUQ7cLQ6gM7sUxDgRuY6 CKzbJ859ZpBtpBNn Romnl2dhj1baeRm1ZiKx BYVewkYajTgvWXN5f1Vk Uu10Q5ArjDtdv2VcRkp9 ha36vGCzh2Q1wLD8 V6CnRMYyvieunAEyxLwh WP6qGXGrwekkQNRkxX8u XNGjP9x7DvQrExG5MZyv F2UzhuL7WXCcdOIf BQglMVC7W49qn3S0TZGu SDHtPCF7aKP5qK9yjGss bjogbGVmdDsgdmVydGlj DAoiAXlfD273PQOc eOypUXZrzD6gXYQkiRRz tJhgTW5yOKWasxjsFqAJ O0QSZ54YWXIEE4MXRkRy SQhVNV59W0WdFbz8 FTWpsEimGO6dtMZuLHge Fq8zcLrheTjiNV9gLFMl hubbSHFdoW6xUBLodZFc sUrnAS4sCVHxpbmf n497FpEyLRH7EATplNKp T1EcbS6vHoEuPEUsFDNi B5QvzOZxASgaC988ZTut WrU0XQLttpVcA7Ot BNZlcVlkAvL9a9J0Xu6d BB5xBn1nHHY8IF96BB65 xVThn1N9yRP6B2NxRISg oyhaynyjeXO9PHLc QNLyxI08zBIfSHnaMi5d w4Y6v151DZLjIZZefH00 Lk9wzHqfIJItyHHTqU8t ahcdw2nkfoarMtGv DPSbGEg7DRw0GBJbpBag WhXiHHG5HvF5WGE0mXWk uA0amJldwyoihO1nItj+ YJKbERUvxwV1A2Uy Lip5JTJhlLknJG9ogQEf VGipVn6hpWfmkMerDD0r GBAlrjzmWBOodP9cQWGk xWWsgCpvXG4gOTOk ecjbv489BmOuFZC8CCVs fZSkL7JujN3eHwIlKDCd EEGyI9YhbPRzELmoX144 JHouBjR3QDFauqQa P2TsYVQrpUluLbD3l7V2 Nt3YINwHMM80TQ40wLIy x8Q0ePK3I6CvCIBwylef yrvxaKS8QTTvOOTw kA83eEIyWQyoTy2ek5K5 n890QLIdESVjsJ19Nw7w kKhcFGTrmJJBxR8tsyxr l1mfszqjSdOgCMCe XPl3LFr8GOVavXzyHwAt OGA6SoL5PEC4eFAooT2g cHykmceidK8pKde+T1A8 Z4XiBkiobDU+PC90 LGBdBL81sJMycZLhi1ru sRn0RfDgVUDxXNF6nNjy SYiqx4DrNPDwJ14mjUTb a4G4EKJobNutjVVx MmSlySH5iI5uZHdevayk v5tihyofCgvzd2ahcm18 vG98V04dBAgkFQFkDCHh UUEhXLNneCiarr5g nH6nVw9+PWFjyMY1qAQ3 fX3jWwDqDfF8AIzkH339 VcEcvEWfCiffr0sna8hi yTb7ZfEdINYczhJo yRzfPLD7j4XaLs23D52j IHdpZHRoPSIyMCUiIHZh xQyyua4ozQ2uXu2+PC9j y6muhz40mI47mCZ+ SAAmUVG4pFmvEOagBTXv pW7lFFpqDcE9UXNoRzBh cZ04pTWuLOokMz2duFyf vQomFF6dIVLwquaq v051YoSrt3pxXZEhjADw WNdxIGE9U64kn3X3LYXe DXCcYSI6mQS8tU7geRsw bjogbGVmdDsgdmVy wSjtIBywPUaoB062ESEd bXopZiOniDMgJ3sadiKD QI2dYyalmSN+PHRkIHN0 jMjrWFpjDVWsqX5s XOJbS3v0UkKbNrP0XWjo F1NgoyT6SXEbyVUkKVAh iWOXeP5aoyxwy3xbiwzt YsTqBFUeWMc0BTa2 RDBcbQrsAiIlZOL7XfM5 YIT6zHFaxR2guAknqfwg yD7xBfj+RklOOjwvdGQ+ WYMdBEQ7pJfwHUru ZTQgrX8cKDGwY4e7GnVr IgR3NOheL0NaowW3VHXu zOQsRPXigIIZrS6zmvjy c2xalberSzObIJVa DUb5RTo8KAMevMpeZsJy DZE4YeJ0AMO3eDOcaA5o bHigalfxeA6sSyp+TVJO OjwvdGQ+PHRkIHN0 wCwaAHykMIPibR3dWXKk H6c1HdDxThT7QIgpT0Ts ceB3SSZswVSqOSEhfZEA jD9ojraew2docoek QiNuZLJsUSi0ABk6FMPt dNkiTlQnVWW9IiH3XTW7 gYEcrG7ivNfhmdnuiP1x Oyc+RBZ0TTB7XZ60 SW52R1QqPxsvhXIurJF+ PHRhYmxlIHdpZHRoPScx OAFoIyHinUgxFB2zXx7s ZGVyLWNvbGxhcHNl OiB (more content not included)... [facility] Rad - MRI Reporton Rad - MRI Report [id number] #[id number] Normal [facility] MRA Neck [...] Torre MD 10/12/21 7:46 am Technologist: JERRI [facility] Coding Summaryon 08-30-2021 [facility] DcsvmqzrRMe6gVw+PGhl YWQ+YK3QFTNoH11zlQKb qN3RY4xUGV5FLCMYAWPQ ZZ3RLE8qhHH3UVkpU9Xt biAv NfkslXPeFO51QFe6GAV4 nQamYIpmiC7yuTBaI9l6 CiAeFM03qO96PVxxPCEf LnH9VbMyvvjbnSBv B0maFfXoaHYpKsj+PHRh YmxlIHdpZHRoPScxMDAl FvNxtYorBQ9dXu7mXVJa LWNvbGxhcHNlOiBj f8aqKYFcNKjuJM0mzDpq O0ZvnTI0ZVTvr0m1Zy20 dHI+WXYoXBI3pKqvJLmy n007KpCzh7leZNT9 oUHrCLhxVAZ7X34rt3U9 ECMiJXSvGMS6vOS1uX6u cHiuenxhA0UcoGExTiI6 DHM4gMXoyH2guXoy votioD0pPvt+Z55POP7A UGYXBH2LUmh4D3ZkSezv dHI+RA24LJZrXW00vWGr oRTeq4ujzWc5LbSf UKUcCOI8hPngTNlbq7Yt WRPmX95kjKWmg6C4YCMa zBxwwIIyOuWusRR7fI2v TYrrlfmts1hnofol Ryidd7gavv71dW59U35b ROuiDFDySFT2JWKaBPWa hWcgnm2etJ2rGi7+IDxj r7qkg1ifbEr7LjUq FDJdzpWfjIhnFBM2p5Kh Od06X9QhqKcou1JzFyr2 tj73yKAzb2Q8dSX1MApr FVJwaC7gPJexHyN6 QDMcQfPpoD24aJTzRGdf Gr7vdUsqjWsrZI5hXUCo tzuzULGwiH0wUCAqeDJm kJglXA9iPBOpfvpo m020CjPhXOC3JVTipBKe I3WsvA8gAfCzIGUlPQZa Y5HysAMgSTwzV104KRzl UeX0JWLikzZsM7Lt AXMphKqpQeA9r9Y0Ch1S k2HrermdEUM5MWmuBPWs NhZzTmGcJoY6P1LnFlc9 AJFvsUkfGI7xC1Zz XYValxejczhdyUK7ZOQi SNJkdT92mDXxHRozZl4j l7W4l326FNYtGXMzuF79 Kx5akSofZRAglAXT dK8tsfbre0aefdjiWcKa VKJcYCb9EUl4JHGfdQqy XtFgIVX4LiL1CUL6eSKu rN0knEpjzxneyM3w Oyc+J58xiA7mHBB8FHC9 ybduRQAfrvReYH58QF15 D5FxDjaqeTAuqAQ+PGRp xmJwuOeqCG7lIfAv m1jxk2LwMIgtY6SvEATn GWmkCrr6XEBoVJZ7eFE5 tC4zPCItSFhlz8A0xAB8 Z4FnzwUsar3ll9kw WMWvHEqpI54mgMOfq4C2 TJMriNL2LISxdIbbRdHp uV62Czv+DQChhFpeb4Mu Fmkjw9kcv1zooJn7 IjMwJSIgdmFsaWduPSJ0 f8TiEw52J93qORwfTTZq BNXyWNFrVVNuvUhyrb6v hU9qPu2+PGNvbCB3 tEU0sJ9jJXGgBmY5ZQut P175SzBnpNLwRruyc2ic i2iolRg0SkOrBSPkoaIc xWmaXTW7h4DfBs94 P89aWYavUOZoQMPtVZTc OVPsxIkhlx3qqP6dAi6+ UF9wn9gqua43cS91kXX+ QGNlWNZ1rFxuIGxg JEEujD6jNTlfXsC5BJXd LhGgoP40oSMtNRxsDw4g lCbwlLjcUU0zLDSceenj r735QvNrt9cxDQGf sIKcJNsyVSJ1B81he7E4 OBKhGHVkQHJ6xLQ9tZ2u bGlnbjogbGVmdDsgdmVy eHtbOMivPBusZ874 IHRvcDsnPlBhdGllbnQg TbOhHWa2W8VsDcs7ULZh hCfkJI7byMXeSKggRm3u rNdodSalCO8zVQRe kadkk540SgSei8epSLIv fQAnWOfzQFC1A23rh3B4 PMDaCJTmPWX7sTQ2bC3z bGlnbjogbGVmdDsg npLxdSpoQGjqPTisZ349 IHRvcDsnPkJpcnRoIERh eDD2CO11HC86wNPdj3E5 zOY2C5SdRRLwqxtg kvsvqHO0YEBlEVXrmE82 Uy4ghPvmNv4dKGNiBUD9 UOVezVMwW4TscW4bSjQd VTWvSNMaM6LqqOFo XPdzI986GCruBiL1PUNr ypQsS5HyNKAqvXntVhF6 j3W8Jk2PL8Y4ZL61AY44 nYBfd7H3hBR2M4Px VZCdxdwgoeqgxEA2ULPg KLPyrD27Xs6eiIozHn6g ZCGdCEH9FDOqgMUnK0Ud iA9fXaIpVMVnOCYd M8FfeTQaMXjfN970JUup ZeX9FRSmuuPuE5HwNBCu xCmdImA1c6Q6Au0HEIw1 UR24WE62mWUmn7H2 fGA4Q5ZiGXHraovcuehl hXW3AREkMJTvhU29Jg4z aEumMw6rDSQqVRR2EXDo mRPdN9CueM2lLbEt VHRnTAEgP2EhnBXzWEwg O085GJhwCoW8HIBhumTv D9KxMUYdjGtvVsR8j0B6 In4BNQTfBT55LAZ3 fZP3ZZ64MG82P2WvTgqv dGFibGU+PHRhYmxlIHdp ZHRoPScxMDAlJyBzdHls AF1cUb6aPXNoMKLo uVirmSDgQoQqh8wjRSWz LSngCP2nyVwlS6WklHF1 FDQwj8s0Em09B59cD4Io dXA+DUGenOI4mBL6 zM4yArIzZwN8DPssV533 TzXuyRYqLpdqt9hdt0ay hJm9ClG3TTAczvWvuTqd DMN5u4RzXz22Q75e IHdpZHRoPSIxNSUiIHZh kGvjxp0ffD3gRw5+PGNv qFQ2oVR0uD9bFlGhDqM4 BHbpR014QoNueVNq Rtpad6hdw0ggqPt1OsVl EQSwbyBwaXjyLPR8f9Lh Kh92E9LaaGmfg7JeVzt9 ru09gDBzd5I9aLH6 I6ZmRZRttyyspFVylBhj SG6nFEUnhdwiQAJdjI3t MJUrU9v9NoZqYeI7ECeh K5RkeiC3YVRrcUEq VUedDQL8N02tp5Y5MIDs MQZuARD3cAL8hG2vyRlw bjogbGVmdDsgdmVydGlj CSyhJNqpC365QZIk jHnlCBZxhD2mBIZrbUSe uNbvHH5dVOVxazqzSsGJ G6OXX61LALNFD7FBWoLn JJzWJO43W4FjGrg5 KMGubOttFH1koDSyJOhs Up7kjLtzeLwhRV5sYGJa cvkrJXZxdM8tKDNtyCXr yCziXQ8tDBDsivjx i828WxYrEOA1DPWwtNDt V8GevS5lNnJcRVXqMFEe S5FwrDAjQOalD064TPms OyK4OGZgzrRnD1Sl VMWuzWwlLiG9p2S5Iq4e UM9gWd5jMQF1GD30YY31 vYEkp9I5iVR4G6JeGBYc fsosxayroHO3IUHm QFQzmL29wUJlSOahTn9p y3D8q333TMHsTJScjI38 Sw6wnMqmZVAjbUVTnX1q prqth3bvcefjYoHb ZFRvVQx2HMd7SXKgkFik ImCzVXP9NaK3QNG1xGSy uT0xxBeeinzaeP3mUbo+ KZToBTBbjrN0H7Ir Hua1BFDfjXliZN6ngRUn OHnqQw7qgYeqoPjiCB4u QOGiaxlbQJNdtG9vMBPk rVKoaLapOR6rWAOj lvxxk713LsElKRG5NNQm nJDiX6CksY3jSuWiGBIp EVPaK0WpzJJiEIvkM414 ZArhJjL0KDOikgWg D0IoCCNfyNzeElV1o8J1 Tu3HRSaRLM84WK24iBDy w7Y5zPI7N2GuEDKixcwn svhtfXM0TIRpNCHe dC63iMZlUBiqTi1xn5R5 u166PJRgCGSlkS58Cn2n vJsvVIJsnHBMwU4dsqzx q1klxwasJpOrQXLm GRn0YFd8CZMmnElvNkYa DQQ8PuB7YAU1zPBtzE5u xIsphpxevR5oVqi+T1A8 L6NpCxzjhUO+PC90 MGVrYW95cISznOYem3fn vWe0WmTmKVMhTHG5aDiu USlje0FnRGEbB94ssMVh v7J7VNSjgZizwXKn JdWssCW6oQ0fOYulyoud b8mlkzkvGnlpu8najh08 fE87C27kLFbnUPLvYRVz GSYoCPDeiFwopu8b jE2kAs7+UFFtmHH1aUU9 hF9fLqPiJaB9ZEmbC222 EsIfnTWcEphow8iru8dp jFy6HfZcKLVmpfVx gRqoSDT4i9UmAa92J52q IHdpZHRoPSIyMCUiIHZh nZeegq6emK4pRa5+PC9j a7mcrh17qK02iDL+ LJJmOZM6hXosHGheKSAi yJ6rJOwbSpX3JICjWqKe mA71lIVuNCueLs6zlSab yNjfZU0dXMHpvhev z221JrBzl4onCPRiwMUx ALzhNPV8D42zp5U6KQVr SCUbYZG3lUU3tZ9bbSgg bjogbGVmdDsgdmVy wLfnAGhuBElgD121ASFb kSqmNcAxwBCdI7wnmqWR HM9eRtqttSC+PHRkIHN0 dZckCCkoDDNvnK3v TYYaY3m8KgVkXjU4TEhd N6KtjuV0ZXAvoSBrZIBu aRINmI2bewnnt6rzsbou XpCiRCSkJGp8MSo5 XFEfkFlpCqIkSAJ9DkQ6 WHP9gBKgfY2yjKsmvspb wW8gFpm+RklOOjwvdGQ+ EDSbUEK5sJcoPEzy GMRlmI6kORSuJ3c0FyFm DwY0XKubR9BtocN3KPHv dYFmNCJxnRKDhB3zyjex f0aocoaeWeDeQHSx XKc4FXu2BTStlYyoWfSj LSV8AxB4WIA7kVTzpA3t cYmzupgxhC3kOeg+TVJO OjwvdGQ+PHRkIHN0 rYecUZcgDSUpiL8oWICg V8r3AcWgGeJ4ARucE8Ux vzU3ZUViuKUiOMLcqCST vV4etkpss3psgekb QuTfSRApQYy5UYi1FAIl jKcdAdKpGNB8HbX9OGX8 qXSrnF9lrOuruudaeJ4v Oyc+BQF8PNJ3WB84 RI04Z4KvRgqvjCKxmRN+ PHRhYmxlIHdpZHRoPScx YGJuTpOpbKqpLR3bCc2e ZGVyLWNvbGxhcHNl OiB (more content not included)... [facility] Coding Summaryon 08-29-2021 Coding Summary HTMLBase 64 UzrxhtrtSTr3nDa+PGhl YWQ+KS6EHGGuS82oaXZi oJ2QV5cPSV3EPBPSTJEY IK7QQH7wvZH8NCkwI8Pr biAv PbjuhUQcNT25UNu0GMM0 dHwySDuvtZ5naIOzH6p8 XuTjQR71hE41WBkwUDTe IwY3SrPwslyvhJDq K2gaNkMhpFLmPjv+PHRh YmxlIHdpZHRoPScxMDAl YmGekUxuVT8iBx2wUHMx LWNvbGxhcHNlOiBj d6flJPMzIWgtIF5zlArc B7ZhvJQ6RJCpx3d5Ki35 dHI+WPXoOIJ9zCbdEQcn r052JkXni1smTKJ0 vEDmRUrqLON5K50uq4S9 JZBbEBUtGSZ6sTZ3wN9v gExtqukiF0GxiXDmUmD6 HQD5lYOuuR0geWdr wkfwkB6rYgo+C85WUI6N XWKPWE9MXfu5L0ClCwsx dHI+XY88KAGbNP70uQWu fKYxv9pwqBs9XvIx RRRbYZK6mMfkIJrkr3Nu UPKsS33ocNImi3D4PYOo jNsmgOFzZcFmxZE1dQ6q YSffmsxgf2rnghli Djbff5iqsh36xT91Y42v TAgqEGWiFHR5NGCwZXMb lFstay5wdV2wUi8+IDxj b5nwj3jenBz4DfTn KXOksuGupPkkEOV2v0Xt Wr25T3YnqYtel6GiSfa6 xs29fBDut0E9eFE9DBel UBGlvF6yAFmeMuP7 WWDhRhRiwN70xMMgAIxo Ut5dsMdzvFdnHG7tCFFr iednWZYekG6jZWWanCRh pUlmLC6ePEYgmhii y330BeJlQNE1MMGgcSHe B3LmtU8rFmCfFTPfUEGk V5LhuAMmAGyoI573RYzf PdY7CLDkqbTwI0Wm PQFnqZlwIcW3h0Y7Bm6N c9LcgutzPFQ1MBkgDCXu TqNuCaVlMtU1H0XdAnm5 ZAWzsVlkWC9kQ4Rl VBQtzlmluwiykPY9SYWo EHXgdU04yWHrIYgyRr8h r9V9j968EKZkKCBekR44 Um3umSlyJVAbbXCG kX9qoyipx4gzbbdiQnPa QSDjOVb7PUk7ZYOnnIrg WvGeGHA4MhS7FLG0aLUt fT4trBvpcomudZ4m Oyc+B41inN9mZTM7NBM8 cmpuNFYgcsIqHU31EE90 P2DgJfwztJJicCN+PGRp ktXfeUhmTK8lLpRz r1upq4KuLGinS5BpGAQx ZSukUut4SLFrRNL2kIT4 jZ2cLOHzIPeoy7N4yXZ8 I2PgsuHtqw5tz6pb JGZvGCleT66wmHXwz4L0 HSBuoLG8XNRwpOmiMaNm nO34Avg+ETNltKcwa4Vy Misnv8moi8xgmMs6 IjMwJSIgdmFsaWduPSJ0 w0PqVg82D02mTUlbXOJr PSQoTQKvYWNfsFyfmm7s jE6pJf7+PGNvbCB3 lJV3yH3jDYHzNkF2NCaf W263TxWdqRReBxyrx1ny f6iyyRv9GzPrGFBwykGv fQfxKNY0y7IqOu13 F95hTHrcFAGoCYVjWAXu PMKvlRpqjn0vgG7rWl6+ DE9ta2kauy47kJ63rSU+ GGRzEZG7fCtxOOaw XQRohP8wXRybCjL2OOFb ErAwpC92rKUrMTjuGx9f fQewpTcoYR6fGYHjvcbm p769CpEmp8tnRVAp mQRqTVwyPIK7Z54lo4F2 MDDoWFCkJFN9zDM1eZ5v bGlnbjogbGVmdDsgdmVy xWerJBxtLYxyW137 IHRvcDsnPlBhdGllbnQg QvOxGOz5O6UvHna9ZNPh aTycJX7gtMLxPEcxLm9v dSjgdPijSL8dHRFn nzyoe890FdMvm4upFEIc lZHqQKojKQM2T31gq7B1 QRVoXQMyMEY9vGX7uP3j bGlnbjogbGVmdDsg bnIubKzsKPjsNAvyF745 IHRvcDsnPkJpcnRoIERh zGR0AC89VW59gFVyt5G6 lRN5W7TlLQKimeev esernAS4TUUaEXDufQ72 Vb5knAvvYl6qQYLlSWR1 GVEagGIiZ8GxgI6fIiXc MXCzJRZaF9UsgJEn OGogL894UHgxNmF4EJKd ngSsD8RwCZKdgFoyVmB6 l5N3Ir6YJ8R7BI30IX01 eEPhu9R0lES1Q8Ty EASgfvmexbkhnCI7OXMu EWUhkO01Xm8pxKmyLm3y JKPxPYK2FLNgrYXaW6Eo dJ0wIwWcGNGwHKMy Y9NldGKxHMnoS579BHll FvH7UAVkceTnU5WoCOQz pBlhRqN3e2P9Kz8VOSj9 RW21IA19wUYnc3S4 nGC4O3RvITIiccbxiktu kCE1YHCbIPPpxE51Jk8s jTtfXw6pZYFkXRF5JJAr mSIcY2WsvV1tIhNy YCNfVUUeF8UnzTFjDWfd U573JQauIjX0TIYccwYm S3PiXPMkuNibRiC4u9S5 Km9TCARrFU08QAW7 sMM2II05IE28I7KwKdat dGFibGU+PHRhYmxlIHdp ZHRoPScxMDAlJyBzdHls YL3gRe3lCZNgKILx zIyqyYFbXiFoo7shPFBh LMvxON5mjCasQ0PmdEZ8 ZXVcd4m3Wj54O54sX5Ax dXA+VCNziJL8tXF1 bY3hOiSnAbI9QMoxO484 XiRilPFdKkljd1ubp3yl bWs5JhF3SNNjhlIdqKlx GNM5o9HuWa49F27p IHdpZHRoPSIxNSUiIHZh aQarod9elO3rFp3+PGNv uGE0tPV9pW9jZqRvDfP6 JTzeP469EoKovEQn Wxwpr6wfu9fxgGz0ShPo BHKyopUueFveZCF2t4Np Lb27P3NmeCrrl0EnFqb3 tr67kKDaw3C3cAZ6 O9OjHCDnajnncTTffFim LJ6wMJWutzwcBFYpeA0s JOWeL4y3RdZsTjO7MPkq W9NbufX6ASGpvHHf FOvaHQZ9T58lx7A5QKEc TRHnWXC7pAJ6uS9caIbn bjogbGVmdDsgdmVydGlj FNncOLhtZ443GBDg lKtcOXRudB6cXKYdoXAc rGwxYV2dCEQfgqwrPzYV R9AYA63HXFGDC1GXUnIi MLsOWA07X3FfJor0 JLLlgLilZU3qmPJvJNjh Fs6qnYvwjGrsIR3fLIOx fataLHAafE1yJBPhhNOm sUxjRQ0zQTDqssuq e701BeHhOZT0TCCvdLIa Q9WfhL4xBwHxUUUwNTHx Z6BkrIFaGGdxE051HDfb DwO8SGCkhhLhP7Wo PDAcgNbjYeO6g6W5Uz9f DD6jIe2eVEB8AQ97CU95 yUFtt2V9oDM5A3BqTLXk xmrkdyerzDH8ATIt EILmvP92kNTmSIatFk0y w2N2z315KGReUAHhaT90 Nz0llKcuKYZrfTHNkN4t zzyvw9rilqdxTeYh PJHzTSc2NVd8LLTfaEhn PjOmDFR2BqE9HVW6kKBt gF5ooHvhtdoklB6aCif+ HMQpGOHmcpU8C3Xz Itm0ZTTgrHupPS7jbRNb IIdxMj6maHkbsLvoDG8o HNTuzduhCQQdnZ3sXLWu tEGnsCeqSV6mDJPo rkxce478WeXaDFD7NHPo mFRiM6NxjT4vAqYfGYAx CMWgP0PvqTPyOEfwC054 IIvrRoO7WLKectJq Z4JwGOClfBayHuA3s4O8 Cl0ZBElTLF76CW91rDXt p5V8hXU4V6PbSDNncuan pvzxsSJ6DIIuCTDx kC96nPUyCJfzZz1gx0T0 z171VVDePYDcnA96Mg6q yAomNXMzuJQYhG9lyzvc t3vqlojtAhTqMSSc XYa7JXw3UEStfQmqRtQt LBG1RlE9EOD0pUXbaM5k pRrmzrgihV3vNay+T1A8 W0EkSemkiMT+PC90 KBVoEP85qWCiuNFvl2kc dPh7ChQmTPMkGRG0pPdq ARlhf6UqMSGcB31ehFMv s2U8AIEryBcdtMNd NfBrdFQ9tN6sIImugate m0smtmbyLrkek5diqi32 mK80X47iZQrdZCGwTZSu PMMaOQGdgJatlw0x wF7yAm2+KKMhpJO4yNU8 iZ5bUsFdUmN1GYcbC691 CyFwlXSoChjff9fzi0im mFa4HzYrNHQorcYx oCrpSTZ4y3EtYm90G71h IHdpZHRoPSIyMCUiIHZh yTnrkx1xfG2pXf9+PC9j q8uazo59nP35xTL+ LHEhNWK1hQlhAAzyMFSu sM9hPIgmIkH8BVKyTgYh iI94bJOgLFflLq0mcDdt rMnfZL9uBRPdmsep o394PzGle7tsNFUslKJb MHpnQAN5F73yi1L9DLSv ZKRcZJQ3lSV9tQ6pyKsf bjogbGVmdDsgdmVy oAnoDLkyJKzpW318YOPi jKbsBwXzjKPoV8mjllLT SG2vKirhvUN+PHRkIHN0 nLmrQLxcZIRbnE9a KPIoN0q9YnYvOxK1EWxb M4HfvzY1AEEroGIiFTJc pSXKuY5qeeykh9orsfnc XqXwCCKoTOd3BIe2 EKQgcBaxAgGzPDF6MjM2 WPU4oVZjdI6mwDusgqdn cI8aMie+RklOOjwvdGQ+ NBLtDDG1pWfeQDgu LPFrsR4mUPSwE6z9ElHo MdR2UKeyF3TexrM5ZMUq sTLiIITbeTZMuR3ygcyt v9hzbpvyWlKiOUGy MRm7ZIv1RVBmbMoyCkXm ZIW4DuI1LXQ0vHLubY4j dNiupxosrK7oHyh+TVJO OjwvdGQ+PHRkIHN0 uYaqHRkgPTZnyE6tGSMq M2c8KdLjNqZ0RMwhS6Ei znG7ZSCloYUtCMIbgPNL cH6qiozid6gbcfyu AcLrSNHyVTp1BTg5FVRq bRvgOcCdPXW6AgP0OUD8 aJWkvB5rlWmrebwndT3a Oyc+HOX0XTO0CQ54 LU16B3LkPjpqrTGvfCT+ PHRhYmxlIHdpZHRoPScx SYCrKzVkeTpqCS4pZx4o ZGVyLWNvbGxhcHNl OiB (more content not included)... [facility] Provider [place] 08-29-2021 Provider Orders [id number] #1.00OTGTIFF Normal [facility] Rad - MRI Reporton Rad - MRI Report [id number] #1.00OTGTIFF [facility] MRA Head w/o Contraston 08-10 MRA Head w/o Contrast MRA HEAD WITHOUT CONTRAST; 08/27/2021 2:19 PM EDT Clinical History:LOSS OF BALANCE Comparison: None available . Sequences: Axially acquired 3-D gradient echo series for the purposes of iubk-xz-fbvgbp MRA. From this data set multiple volumetric [...] Deshpande MD 08/27/21 2:50 pm Technologist: JERRI [facility] MRI Spine Cervical w/o [...] Deshpande MD 08/28/21 7:38 am Technologist: JERRI [facility] Physical Therapy Noteon 07-12 Physical Therapy Note [id number] #1.00OTGTIFF [facility] Provider [place] 07-31-2021 Provider Orders [id number] [facility] Provider Orders [id number] #1.00[facility] Coding Summaryon 2021 Coding Summary HTMLBase 64 VkcnncdzQHd0rWo+PGhl YWQ+TP9OIMArB39fkLAo uW3AD1fVGQ5LAPZZXEVJ UG8HCX0zzKD3BHywO5Pl biAv RgsxgUVbCZ01YGr2JDX0 qVtbXFskvA9maWMpO5c9 LdYtUC01jD01ATesWSLq BkI6CbHhhmrhaGBc X8vbXsBkvJScOvv+PHRh YmxlIHdpZHRoPScxMDAl EePmkVnxUG8kNu3jCOQe LWNvbGxhcHNlOiBj o6jaHJWzTAjbAF0nvTvg Q0XzjDS9JQAud4r1Tk59 dHI+FRNjPPE0tWemJUqq y973SrOqw6wmZZZ5 xQWbMKdjPZE4B20gu8F4 SPMzNSTjARO2qHQ0uZ4k zFfiboxyA7XtuVKfXrD1 HQK7yARqbP3qdByw pctsoF3aBfk+C17XJW6N PBDDSI1IDly0Z2NsKunm dHI+XL22GXXqMA92mXLo kDIgt1qhoAa1SlAp NFJwQTK6iGgbRDknx8Zo LRYvT96gxVHch8L6MCIj kEyfkBGkMiCegXM6pA0h KTtgbcjwh4uqyhxk Wfgnr6bfsd46rA30A44d NIeaUOLwIWI7WEPpVGLz kCoton7ybK9kNq2+IDxj v7ddn4yplAc3ZnGn TQZqxoFmgWweDOW0j4Wv Ef55L3SueHciu0ZtRdt3 uf55qICzk2Q8kJW7OElt WJPvbT0dJRebNiZ6 EYEgGnXdtZ65fYSeQFke Og5gqPlzgXzzAT1mRLTw paowGWHpgS9lYIRdlSGa wNewWY8tMACnsodl a651RwCvEUB3QGIbeULc V7JxqY4pWdKxWFImCJLv U5DsnKIlVVhmZ777EUoj OdB0EMSstcQtC3Ve LTUtnUuoDfS8l5S3Nm6M d3JgeizcEAB0QKgyGPE3 PdB4NfDqYrC7K4TxVcm4 XZLruLyaDJ3lN3Eh FWNfdqiddyjgdKC9ORZn MUWbjD63pSBlPImxCa6x v0O8b831USLqYEKmuZ84 Em9rhJedFYTfsLZU rI0znihfr9emvipoXmVg EWImHJc3ENg0UWVszKws XgRaYLF6MsK4TPM2eOUa sU6tcJkbrnmhwS8z Oyc+E03cxB4qHUE9CMO1 mxqtCEFbaxTrRO74AS19 Z3MzXmkbhHLxjCH+PGRp krHrlJuxVA9pRoJa i1xtg9PnYBtkO0KgEQNf EMrhYgl8SMReBMP2zHY8 nU8cDWDmRWbvb3E6kRS5 P7RoatSpmt4ud9zn CHVjBPkiE65eeZCql1I9 ZOBdbNA8TAEgfYttQjDl pY84Keg+CNWgxSmwr8Sv Zkdzb3geb5aigXa8 IjMwJSIgdmFsaWduPSJ0 o3KqNe68S99bPCftDBVk QLSmQRGgZAYtvUitme2d tW9xYd6+PGNvbCB3 fUE4eN2jAKFmLjY5IFkf U852ImAeaHRrFgyve5ge i9mtfIt3QzVmLDDatqEg wVaiVLC8x8OvCt48 I29gXEoySBCfITBmNVWe YKVglUicdg0aaR8qSr3+ XD6xa1kvel37hD28sEP+ SEIlFQO4tLncIGls MUEdyE7kVXglCcT7KLUp IbRztU14gKTuKFzhIx2r dNievSnuFC2iXQWtwhoh m194RvEnu8dhIESy pQCzDKtmCXG5S43yq9W6 VPPhIOCgNKH0sFH5eY9j bGlnbjogbGVmdDsgdmVy hGzhSCuiRLzlO820 IHRvcDsnPlBhdGllbnQg VlZhDCi4G1DnZwj4HQTi dXxnTV4sjDFzSXnbUy5z xZzfzLinKU7cCTYu aklpb653MqIxe0seUBWh bPIuEGplOUN6X00xe2J9 GQQsAPEoNVO2hPV0bF6b bGlnbjogbGVmdDsg hrTrhQsfCNeqQOxtR569 IHRvcDsnPkJpcnRoIERh xBZ7RP85JM20jUTee8D4 vDT7P8RwANUdbmrp cpnanBY5RNXwVVYnjX64 Mh4biEwfAj8kMZQvNHN0 JLSpcSQoB3NvmM9lEnJu PCHnVMUpK6CncLQx MEdmQ587TTvzDnH7VOHy omCxP7IkYIDmpOryCnL6 j8Z2Ue8ZL9J8IA75EM97 sRRtp9M8wLK1B7Vk PFGibaqvkysioMM5RCYm HZJnrW36Gt6ueXmtEs4u VNSkJQY8OSZqoKOeD1Xw vI5hBcNcNMQsDLKd W4IujKMiJPfzQ597WNpl TpL9QDPbwtRdG4DaZQEj nVlgNhA7h0B6Jl2NWZt0 XY21BV91zVSkm7W7 yEB7Y7KpEPHizrkkahkb tDX3EBDlJJEwaL36Qx8o fRmxEg7pFIRpFYR7LROi bAQbY5BiqC8qSqSl WPEzZXKaD0CbfNEjDTog Q663HAlnCkB5NCMwvgHc U7LfLTWfdGloWyM5k0V4 Io3MNEKgZE33FYP6 fAA8ML04QO54X6DaFsei dGFibGU+PHRhYmxlIHdp ZHRoPScxMDAlJyBzdHls TK2pGz4zXMXcFQRs nKbcxMLhScMkq2nvIXQd WJayYK6uoExiU5HdkTP6 CDXgr7x0Jv97H74fB0Nu dXA+CQKacPX5aTH8 mQ6bSqSeZwJ8GVacU676 SmDyySCiJnbop9mww0aq jAd9ZtP3JYHtjqSuqBhn UWK8s6QkBr85O49i IHdpZHRoPSIxNSUiIHZh lIblay1fmV7pJl7+PGNv sRT3zKO3yC6aUeKnNzE0 YLxmS789LaKvjBSo Papfb3dig7kheHw7MpJm YOZuegRsnHedLNG6b2Sn Or79H0ZzyGuqp0QuPnj9 eh36nBWch3N9mEX5 M3JoSRYbjplqkQVehGkz YQ1rJJOgocpdWMBjdJ2o HAVkL9b9XyElImD7EPcl K1WuocF3QWInuPUo CUnwAQD4I61wa2Y2ENEz LIRnHVO6dFM3sQ4brXgw bjogbGVmdDsgdmVydGlj YTjlSAkbT322RBYm xEzxHWDodK3mPJVnkMRv pPmgTN6jERNowkewLoJX M8KJB68VOEGPI8YRLzSk DCvOTP18J6YdQlt9 WWMfhRnmAW5tmZUnSCug Se4cxCjmfXofVM1tAUDw mukkGSEmxO0tHPIxbNXu pVoeEP3pQWQkjjex n037IgZvHNE3AOIdbMGh F1PafW0kJsNcOLAhPHOz T3MhxEZwXWcdG888FMdg TxR5DPEyfbDlJ4Tf NHWkvVbkUjU5j8A6Yw3u MC0fVi0mNEX9ZF78CD36 rDCyd0E8uMD9T3CiMYUa xgwjyhrsaIR1JLBv DFJxnD48dDYnCTwuMc4g w8D4t299YBRcLLRbiD64 Lt6zxRhrKDQobPNKmC1k bgcqv5kytzqcOdDc LFSjIIq7HRb0CSYvtCmd FhHsFFE2YxW6KGS6gRBa dT6omZlqlehinD2lTvz+ NFRnXJNptyY4N7Aw Jya4WMSrzCuqYV3faZVy KJxcQx0vmPckgDzzCA6v QKAvmcpnHHGvzP6lZYIi jYNraZvfDS4bGACq hetfu396CzTwIIN6TIPe cCMpB8HkaP9bLyZgFIMf GMHdN5IcdECvNZewM482 GVemLrC8TAIjgvRx W5RqNYIsrGykQvZ3b3A8 Kf9CAPwWBE18OX11tKAp v9A9iFA6P6VnVRGottjk hlewvDO6CQHfYRXe jY63bJDdANsdBz5qe4O2 v229SXGbOBGqlK84Zm8e eVldRGBknMFArA9qxndn m1onvrsvKtDxQCNe OVd4WSs8WZFzzQswMfWe ADC1ZjA4WUM1sQSftY4k kHzhhuwrfJ3tLmf+T1A8 U4JnIcamcOJ+PC90 BBViNK63xVHobFNpg7ol dUr6WzOoZDNdFGG2kJzf TZkfz4AjVFSeI89phACc q9H5HWElnYgkjUNw FxAntBL0yA0bYEgwclwg s0evhpnkTlnfu0tklw55 eL17I99wEEjfQASrNTYh IWFoJQUkxIkaah5q pE5aWh6+OKCjdAE5iFR7 yM9cBgLhMnO7EHxeX998 NvGgoYQrUnkwv7bgp3kg yUo1BnYgZHBqkiAs jHmlKUX3x4RgWk48B98k IHdpZHRoPSIyMCUiIHZh eIkkso0kaA3bHt5+PC9j x6hrma48fE04xCS+ AHOtBEX0qXapRHghUJGe aQ8qCXipLbZ5EFQnKuKq hE97zOBvYOrvEi8vaGmp sEnvDS6gYSAbxppu a477JzZrs1dyHNVevMNx JVegZZA0H60kv5O6EVIw EEWlSEV0hSJ6sC5lzWpl bjogbGVmdDsgdmVy sIogVHpoPVcoG358UUSo mOmhTdGgqWVqV4obvyLD ST7fAtaadQV+PHRkIHN0 lUtyOLlvAPIfwT5v HKLrG0l8FlRlByP5MOwt E1VoxzT3DIRtxEKwAQVw dPECjQ8ypbaig8rqpnlh XqGgJLOvZHy4VXi3 UPOfeFauArQpMBP8WxK7 TWV2uTOprE7orIhleoip nO3fBty+RklOOjwvdGQ+ UJOaZGQ7iNrgREjd ETNicM5rIWQdT8a8RfMy MsB9SPuxF9UhxtW2MFDl wXSqYVJusCRVyQ1konmm m4ugtvdsFgAkITFt ZCq0GXo4RQJabTpaSzKg CQW3MyS4ZBG6jCGeeN7l wCyqejrosC4iWtd+TVJO OjwvdGQ+PHRkIHN0 nCcbCHkkYHVwmJ6oJCMe Z4y7FmQrQoX2YYzwD5Wz jdA9GIJhqHYuEKYerRFQ aP3bhxwfv2djorqi OgHsRXKdMRj2ILc7IWEs kAjeOgDtZHA6GoH2DSQ0 qDBxgI3ezBhzedjsfH8x Oyc+JOX8NRF5MG36 NR14K7WjLyvzeYYrrLQ+ PHRhYmxlIHdpZHRoPScx FRJbAiVpoNsfMS1nGl6s ZGVyLWNvbGxhcHNl OiB (more content not included)... Normal [facility] Provider [place] 06-25-2021 Provider Orders [id number] #1.00OTGTIFF Normal [facility] .Auto Diff 106-22-2021 Auto Toole % 10 % Normal 11-21 [facility] Comment on above: Performed By: #### 1 [id number], [id number], [id number] ####[facility] (DEFAULT)[address] [place] [address] Baso Abs# 0.2 x10 Normal 0.0-0.2 [facility] Comment on above: Performed By: #### 1 [id number], [id number], [id number] ####[facility] (DEFAULT)[address] [place] [address] 83053 Basophils/100 WBC (Bld) 1.9 % Normal 0.2-2.0 [facility] Comment on above: Performed By: #### 1 [id number], [id number], [id number] ####[facility] (DEFAULT)[address] [place] [address] 82210 Eos Abs# 0.4 x10 Normal 0.0-0.4 [facility] Comment on above: Performed By: #### 1 [id number], [id number], [id number] ####[facility] (DEFAULT)[address] [place] [address] 42856 Eosinophils/100 WBC (Bld) 4.7 % High 0.9-4.0 [facility] Comment on above: Performed By: #### 1 [id number], [id number], [id number] ####[facility] (DEFAULT)[address] [place] [address] 73305 Lymph Abs# 2.9 x10 Normal 1.3-2.9 [facility] Comment on above: Performed By: #### 1 [id number], [id number], [id number] ####[facility] (DEFAULT)[address] [place] [address] Lymphocytes/100 WBC (Bld) 33 % Normal 14-48 [facility] Comment on above: Performed By: #### 1 [id number], [id number], [id number] ####[facility] (DEFAULT)[address] [place] [address] Toole Abs# 0.9 x10 High 0.0-0.8 [facility] Comment on above: Performed By: #### 1 [id number], [id number], [id number] ####[facility] (DEFAULT)[address] [place] [address] Neut Abs# 4.6 x10 Normal 1.5-9.2 [facility] Comment on above: Performed By: #### 1 [id number], [id number], [id number] ####[facility] (DEFAULT)[address] [place] [address] Neutrophils/100 WBC (Bld) 50 % Normal 44-88 [facility] Comment on above: Performed By: #### 1 [id number], [id number], [id number] ####[facility] (DEFAULT)[address] [place] [address] CBC w/ Auto Diffon 1 Erythrocyte distribution width (RBC) [Ratio] 13.2 % Normal 11.5-15.0 [facility] Comment on above: Performed By: #### 1 [id number], [id number], [id number] ####[facility] (DEFAULT)[address] [place] [address] Hematocrit (Bld) [Volume fraction] 45.3 % Normal 34.8-51.9 [facility] Comment on above: Performed By: #### 1 [id number], [id number], [id number] ####[facility] (DEFAULT)[address] [place] [address] 13921 Hemoglobin (Bld) [Mass/Vol] 14.9 g/dL Normal 11.8-17.7 [facility] Comment on above: Performed By: #### 1 [id number], [id number], [id number] ####[facility] (DEFAULT)[address] [place] [address] 69151 Instr WBC 9.0 x10 Invalid Interpretation Code [facility] Comment on above: Performed By: #### 1 [id number], [id number], [id number] ####[facility] (DEFAULT)[address] [place] [address] 02019 Man Diff? Auto Normal [facility] Comment on above: Performed By: #### 1 [id number], [id number], [id number] ####[facility] (DEFAULT)[address] [place] [address] 01288 MCH (RBC) [Entitic mass] 31 pg Normal 24-34 [facility] Comment on above: Performed By: #### 1 [id number], [id number], [id number] ####[facility] (DEFAULT)[address] [place] [address] 81393 MCHC (RBC) [Mass/Vol] 33 g/dL Normal 26-37 [facility] Comment on above: Performed By: #### 1 [id number], [id number], [id number] ####[facility] (DEFAULT)[address] [place] [address] 59536 MCV (RBC) [Entitic vol] 95 fL Normal 81-100 [facility] Comment on above: Performed By: #### 1 [id number], [id number], [id number] ####[facility] (DEFAULT)[address] [place] [address] 30964 Platelet 295 x10 Normal 138-427 [facility] Comment on above: Performed By: #### 1 [id number], [id number], [id number] ####[facility] (DEFAULT)[address] [place] [address] 15524 Platelet mean volume (Bld) [Entitic vol] 9.1 fL Normal 6.3-10.2 [facility] Comment on above: Performed By: #### 1 [id number], [id number], [id number] ####[facility] (DEFAULT)[address] [place] [address] RBC 4.78 x10 Normal 3.70-5.30 [facility] Comment on above: Performed By: #### 1 [id number], [id number], [id number] ####[facility] (DEFAULT)[address] [place] [address] 57897 WBC 9.0 x10 Normal 3.5-10.5 [facility] Comment on above: Performed By: #### 1 [id number], [id number], [id number] ####[facility] (DEFAULT)[address] [place] [address] 67647 TSH w/ Reflex to FT4on 06-22 TSH Qn 2.41 m[IU]/L Normal 0.45-5.33 [facility] Comment on above: Result Comment: Gene ral Population (males and non- females, aged 21-88) 0.45 - 5.33 Females, 1st Trimester 0.05 - 3.70 Females, 2nd Trimester 0.31 - 4.35 Females, 3rd Trimester 0.41 - 5.18 Performed By: #### 1 [id number], [id number], [id number] ####[facility] (DEFAULT)[address] [place] [address] 03053 US Carotid Duplex Bilateralo n 06-22-2021 US Carotid Duplex Bilateral DUPLEX ULTRASOUND EXAMINATION OF THE CAROTID ARTERIES. COMPARISON: None. HISTORY / INDICATIONS: Evaluate for carotid stenosis TECHNIQUE: Bilateral common carotid arteries, extracranial internal and external carotid arteries are evaluated with hogan-scale imaging, color Doppler, and spectral analysis according to a standard protocol. ICA-CCA ratios are calculated with support representative peak-systolic velocities and recorded. Vertebral [...] Jules Tilley 06/22/21 2:18 pm Technologist: PM [facility] XR Chest 2 Viewson XR Chest [...] MD 06/22/21 3:55 pm Technologist: SE KATHY [facility] Coding Summaryon 05-23-2021 Coding Summary HTMLBase 64 EvxdfcfnMYs6cLg+PGhl YWQ+DJ7BSHHrH72mgSZo yO4NN2fETG6QFIRSXFNF XZ3JMS5ijCI7UPafJ1Yz biAv GryevCMjOU26IMa6GSG4 jVxsIHrlrX6fkGAyX1e2 XzIoVD91cT46JVurTKTx GtA0IuLgdxhlrDHj C5wnCnQdhWEcPrg+PHRh YmxlIHdpZHRoPScxMDAl ZqIdzRmcBF5dYx8eJVTl LWNvbGxhcHNlOiBj a1hlHMSwXXndGB8hbZbc U2FonSD9HACds1k4Pm02 dHI+FICePSV8dIdvJSbh r219HtIiu0gaLPS9 rBFdQYjdCFY0S90zr5J7 HNVhAEYpRHU1zXT0sS8e lSbkryhfI5UmvGIiUgL2 EDW8pHBanZ5tcUhz pxpeaN8bNdq+W27OTE8S DRCRKR4IDnd8N9XfYclw dHI+PL81POAeHO80sQZo hUWkb8eucUu0MpNn DQAgMLC4nMmyLNggw1Jp EGIyK67oxGXre5X8HTVz tForrKFbMfZtrRI6bQ4p RWiqoyesh1iaqirq Qtmst0qpxa51yN50I04j LRhnHYDaCTA5YKGnXEAw bXnmpv8koF0vNw7+IDxj z2gny0eirBb5XzEo GKDvumPfuNhvXEN7e7Dh Et79P8EohCdbh7FsMzr3 ii63xDKzs9D4sEC3RPgo VTGecZ0vRTdsEcN0 RSAoBiGxjK26mDVhTMos Wl6ffHgleLcbMB3hOPJf svecOCBhiZ0eRBDnpDUf xPbjJM8lWBWfxtqw d036YeZdSTP7JPDicQMu O5JsrG0jBkHwDMWqIXTe W1QacOYyRLdwN166BHic GtY3IEXwcyLbR0Lm QQCmjZebXjZ6x6A1Fo6E s0RrkvocYBS4DGdlNLG7 ZcG5NsJsEgG6V0LeEhw6 UQPltDkuEM1qF6Uw CCRelmalmwwudXO9JORt UKIixW29zPYpJIzkAx6t f9R7m683ONEySLUiuD47 Hn2dqKjgASEolQCX wW4djubln1uoolkiZvKy QMZkARp5LBf8JQNgjEeb FmDdJJU3SnM2PRE3zLNz qP5prOgxwzycyN8p Oyc+P93pyE2gJMH5QEZ9 enkbDNKilcZeJJ42VM10 V1MxAlldjOVmtCD+PGRp pnLvaHuwUL2cGzFg v1aug2MtQLowK8PvCEQy ZBodEud7MVCnMJN2kTN7 tG9pWWZwXMmyr7B3uWN0 B7EywxIzax8uz5gh NQRxUWmoV05ygSMty4S6 MEGroYN5CEUnyUleGrXu rZ08Ccs+JJDatNhbl8Zv Kweiw2izy7ghkKq6 IjMwJSIgdmFsaWduPSJ0 l7JjWp33D77cIKdlSGYl BCSrOJBsNGSukXqujh8d sQ9tTs1+PGNvbCB3 uME3jN2dQLHyYrL9HOiu M309GtKrsXNePoagt6jg p0qpfIs0VtIaDDUsijUv iXjaEWW5n9MvXz62 D67iAPscSBFoEMRnBNCw HXKcnHrmap6dcH6oSc7+ MT6pz7yrsj85wL19cTU+ KIZdVTA0yRyeDCia RIWbnV0tLUedUgK1VVPl NlDiaU18jFQdDIdbZn6e lAsbrUifHY6uUPUqfzsz r805XqHgs1rmTONo jMPdBFquAGL3W57ca9Q5 PVIzMKVsOFH4rKK8uP1e bGlnbjogbGVmdDsgdmVy uCusRDzbTEgfH768 IHRvcDsnPlBhdGllbnQg MdYeKUt6E4OtVyr8PDEq dTtxTW7mpLDlCFkiPo8k wCpntBytLC6qBHIc obtxu924RgJkf8riGFYd yKIwYByhQUD3H45de9I8 QGSkCLTtKWU4yAE9pL0e bGlnbjogbGVmdDsg lsJefHzeHKlyMLvuO961 IHRvcDsnPkJpcnRoIERh aOX8QM30CJ81qPAdy1G5 vIU8M3UpDUMsfgus geeqgTA8TLQfRPAzyJ33 Re0okEueMa1gAOShTFH9 YXRxhLCzD2RxiO1kOiMm JBTtFQTfI1UulUPl HAzcO911UPdxPnW5INNt xpKdW8ZnNRXiqPleYxT2 y4Q5Mj0TT6S5SA82NY23 eRFgz9Y3bII4B9Wk CGSutmfiiavrkIK9XOPr PQVscO66Lu0xwWpcGc4d UYMcEZU0KMRutDUlB7Wj yX0qGhKrAJHuIRTj H1YsrOKqHTcoL312XLjc DaZ1APSdjwQiN7GnDACd rWfzHpU2f2R5Bw1NHQt4 FH35CS36gVFsy8D6 mPS9Z0OtTQCxpwumdsxn aBT0XDVxTDPowL29Ji0j uOupAy6qSYAoVQZ0HLOu yKZpC6VhgH3eOuVi NKGsGYUkC4MpsCBwAOpj A662ZPcyYoB3EHOihcTt G8PiFXEvzDziTqV6p6X5 Lg3ZUGEzYR30QSX3 yXI7SD05VV12S8TiMwdc dGFibGU+PHRhYmxlIHdp ZHRoPScxMDAlJyBzdHls QD4uSm8tLCHgODZa nOyziLZqQrYdb7tvQVJb GXlkSM4ikRjzR0ZftVV9 MNWom7d2Gb52W72gK0Mf dXA+TVDvaQO8wUW4 kE1hRdXgKlI2RJynF741 ObAocYEeLimcv3xrp4vd qGn9FdV3ELJfyhCsaQlk OXR2l7VoBk57B87w IHdpZHRoPSIxNSUiIHZh xWzjsa4hvO0yUm9+PGNv lCE6zFT0nT4lLdJqUeP7 CKwaU249VqYcuKFy Aanzc2iol6bcnHb2SwVb JCVdozMhxUohLII1h9By Wp28V7TftXxiu4BqEya8 wq91hJHac5V5tUP4 R7GvIWBipdrooPCdhZuv XV0kFSOzoisiMDXaeQ5n UAAuV6g8LtVdWgD6XXsq A9CsrgN0GNYdxYUo TJnmSZA2J86wa4U8LRVm JCThYID3bBJ9cZ8zoBiu bjogbGVmdDsgdmVydGlj PBqyPKchT456IKMs mRuoTCAzlC5lTVGzaCNc vJhzAU1oIPPpyjimFsNQ N8DQG05MGHGZK0HTHfYq IVhSXZ22B3MfWhj3 ZLEbvUbtQA0vhKOlZDnc Ni3jaPxhtIabQD8cDEBr qvldUESlfM6dOFKikSLf wFjjFL2fIZRudvwv d347UmMrHHY3WRNvqKQf N9PgaG0xDfUhRRPiYAUh O8NxtEImTLjaC574AIjk PzB8XDYvsfKvN8Am RPOiiCspOoN0y4B1Kz2i ZX9eOf3lUKC4LF28RR97 pCFhc2A3fGR5R3WcCBWa pvfkrttwrLW4GFXc PKTfbY02oXAfPZndKa5f i6T6d779AMDhZPGqyY52 Hd7zpHziAJZzjSONwO4n lbame6hscajrDqFe YOQnMXq6QPg6TSAucBfq MeJdVUP1IzP8GUE3sYTw gO9vgYhqqqdmcY0gEki+ CRKfHNRbugJ6I8Lm Umt6MPKahZvaYS1ebGMk JKjuPe3dwSbhoIrfID0l ZMGcfnbsZBWmoJ0rBINc cAEhqJwjIH1cBSTt wxtcp497NuPmGJX5GXZw mIWmI6MprD5pNhDlTLSi EKMmM3DmzBXrRSlpL015 KNkxMyJ2SQAxibYj C5KoGHZltQtnHmS8b6R6 Jr9HDKjWTM15MZ64eFCk v6Z9eMI7V6OyDZRzlnnp wtkldIS5BCHtMFNz jZ71aTQlLCpsRk3wa6N4 i491CWPkJBPmiV52Ta6a vDllIUPobTIAtP1cszmy c8ssrtgxVkAkXRPd UMo7RIa3QHLolMfwFqUa PGU3XaU7JCO4sFZybS9y zDvuqsnrvL3wLuy+UmVj xLIsjU2jFK12bXKp iCjnbmV4Z7GlQgywgHZ+ CN04QPPrTU16pEImhAWp n1ohvMm9XnNqOUWpIST9 eXrlUCbuf4KbPSCu K54kdRJzt7X5ZVOwyMbg xZTuTtWbhHN1dO6oRQjq suacd7wydezzWifgr8vu ux55rD51E07cDIdi ZHRoPSIzMCUiIHZhbGln uk2yvZ7bHj5+PGNvbCB3 kQV9jH4oMuFmQuL8HVhk D909FmWylDPuKfvb k7bfo1jeySe0IzZxBQAg grQvgGbcPBF1b0EjLk35 S17yTKxrWJWmLFGyCQLj XVJjlCuzwu7woJ4f Ii8+NV6xd1gxln16wU68 dHI+CWSmSFK1sBnwGXnx CZPzbF5nLIjgGmI2YTUv IzQqiJ22yHHaMGkp Tq9wgCjksZizQI4bATEj awdrx789EaAje9gvDJKp mEMwLOdwUMO8S13ez4T5 LBHlPBVlCZQ0wIK4 yX1wxUkqwqywwVYegBxm beTzaHbrTRkwMAlyE454 KWVnzIocSpMemGTtB3qy lyESTP4aAskeqAD+ ISCmESR8xXyhJWztTMXj xX3rYOKaM3q7RzKrPuJ5 UCwdQ8AmrtC8JTGyaAXs EWKwxOEDnE0ougvv o5wsshgvDdQoIMNpTVt1 GXo4DUBjnDzoGuFvASA4 RrF4LBR1dZYvqP4jvYqq ejkjeL6uZpi+RklO OjwvdGQ+XWHoAVS1qAjq DCoaMIGtlU8aRXWhV6v3 JaZrHwQ8MNlqN1ShiiW5 IGJvbGQgMTBwdCBU xK3maoxab7poigndVfXu GHMzKEl8VWt8NBVveAzw RzYoNXK2YjW1ZKH7iHMf lV6ccDizthcxnR1w Oyc+TVJOOjwvdGQ+PHRk SFT4wTvfSMxwZVWheR4x EHSiE9e4ElZpExQ2VRwm Z8IstxG1PXVjiNSt CULloDPHaU3nxgdnn7qi hthvPdBlKQQpPVs2VVm0 KVYlsQyaUhGuGGP5EaM4 GSP5wIFfeA3ejUak fapszP1gThh+AXK5TGH0 DB23BE39X3GhKdkscMQv bGU+PHRhYmxlIHdpZHRo PScxMDAlJyBzdHls ZT0 (more content not included)... [facility] Provider Orderson 05-17-2021 Provider Orders [id number] #[email or web address] [facility] Coding Summaryon 04-27-2021 Coding Summary HTMLBase 64 MrhalkacDNa0aPp+PGhl YWQ+FP1JBUFuI54kzEFl fV1UG6qLHG4ZIKXTJHOF AP0TVZ1daNF3IRoyO5Vl biAv CrhrmVAvZF33KOm4NUI7 kFkdXIdhhV9zqYTcU6w6 XcPeDP00gR31HXzbRQAk NeH4QoSwdubwiRZr Z6wjOfLsiLNeGlh+PHRh YmxlIHdpZHRoPScxMDAl DxYziJlkLY8jZm0hAETt LWNvbGxhcHNlOiBj b9kaYSHqGQonUV0jdPlf M6IuqEU1FSIhd1x4Sg57 dHI+DKNpIGZ8hWmpEAgl s554KvRfz3svXUX5 kDYxCHroVTK4E04xu9E0 SWEjPESnNQT9vLS3bQ9k zGzwbrbdS9RhhMNsVyZ0 MHY2lPGpfH2nfMop qtzbcF1tKoy+Y46UBF0O IWVHQG6PFuo4E3IfIgmk dHI+KB03ZLXwKY40aVTh nEKgx4ojzAb6VwTc KLRsDBC2nAtkZSkad9Oe IWKwR48xnHIam4C1VXNg sWcagIXoIvFinTG7uJ6x XTfhrtgdv7elyytr Tugqf1nvue96xS10A18l JYisOQZxXXP7IQIaQPTt lEyspm7soT1sKx8+IDxj h1szz4efjAj3UaUe BABymfUglKuhGLQ1z1Nq Rq56B9VvtHfqx9UvOig7 qp71cDNij5R6vJK5ZBmc ZIUcbX6kNYiyUqQ4 CXVyXzTqrJ92aKFsZWrh Rb1guEcbtKtsTH0xHUGq tatzIETcsJ3gLWAbxHLx lAeiKQ3hCFMklagh b725HmWhSFI3DCPlaBJt G3DnxL3cMjBuNYDvCWVl J9UqxVLyXFxfE104CPgz AdD4JOKiydIpB5Xd AKTblCabDiW8l1N6Lo1I e9SmqopkQZK3NAlySLD8 MtY7OqKzFvN3W1YkPqn6 YGHfpAtsPJ8aN7Pm SUWgpvyzlrxopDZ3YNRe KYMpkE16wRFfKFvvSp0y y0X7i815FWZlFLJhcM54 Jm2jsXsaMUPikLWM qS6rpfhwi8jatbaqCtOz JNRpSHr9SGm9SPDztZwm OoGiFWI4OkG5TKK3wDUz iF4dsNcuaeyxqL0t Oyc+Z29ugL1aQKY6WMR4 zxbgCNKsuoMuDO57NE09 G5NtNceugGWjoBF+PGRp xuQizGbeNE8rCoNm h3hzl4KpEFagQ4ZmMKKx ZSgtSqy7UGLoHNI7tFQ3 vT0lFMPgLDvqi9K6iFR1 R2KpzwJcps2jp0fx NULcNExxC31hfPMos6J2 OGUtjUF6KBEquVckEoUh kT11Dtv+ZWLymIqrt2Pe Ehouk8ejs7nfxGy9 IjMwJSIgdmFsaWduPSJ0 e6LoWw76O98vPNwyPCZr MRQhDBWbVPXgrGeocz8w hP1vHl5+PGNvbCB3 dES7cM1pZHCfHiI0NMzn F553ZjLsjYJyYidnu4tg l6grzBc1TbQiFWZtciPz pOrqWIR1y3MhCm94 C82fZCuwKGCmYUMfJRCs PADbmHzwpg4naC4fEi4+ SG2pj3bqvt01vC25vYU+ PCFxOJE6eVdfZFtc PUThtJ3wPThhYwS2ZOEp OdKcvV58sHDvWQlfAy9w fQakeLwxBY1uDVZjpscd v547HnKbo9teIFMs gXHnPAexIWV6J37lg5G2 JOJnKADrBMG2vLH6iQ4a bGlnbjogbGVmdDsgdmVy sVwhDEibFYecO942 IHRvcDsnPlBhdGllbnQg IwUyZRf1L8LeHmo8OPQp xZtaVW9tiCAsUYizIb1x lKnllYtiZQ3bYOIg jrthc284BkEqu2baSWQd nHDvAObkWMN6B29yn6Z0 LGOmXITjNLR5gLO5mS9x bGlnbjogbGVmdDsg heFbuEemKXdbSAhlZ658 IHRvcDsnPkJpcnRoIERh iJS6ZO71KZ06pPGyb5M0 vIJ1N3TrIAKbeeyv txmixIV6ZJKeFHAbrR93 Wo1tjLhoNa7fIUPiBAO0 STTnnDFqU0MuvX6sVuAh QXWmRWMxY0WgfTPz OTtaV821ZTclHqD6DMLk chKiR1NqJAVvjAzrDrK3 b0K4So2MD7R5IA34SA03 lBTav3H7lNS2B6Sa GNQjlhctpaindTS0ZYHm AIFbrT10Bo4thRrgOa8v FLJzUNS7THDmpLFwM3Hd hQ0cVfKvFQHjIUGo X7LwmHWjLPvjO832RIdr WpX3IKSibjSiX7ZlUOUt fOfzJpC1d5D8Sj5EHQy0 KU28KM42mLRgz8O5 tEY0N2CfBMUslocgyufu lQE5JQEdXZRhpX81Ey9z eAfmBl9kHMOxHTL9BFWy vNUpZ4LtuG8mDdDy MEZmGOOrW5RyiOYfVVca G278JFsfYeN1EKLwmlMn P6VlTJUnsDflMdM7n0U2 Vb3CLQBgUI89XJN3 eUM7NG34MJ99J3LkLwsu dGFibGU+PHRhYmxlIHdp ZHRoPScxMDAlJyBzdHls LU5kSd6kIFZmEZSd fUhdhAUgIpCeo1akWOMz KUndUI8ixLpvT4LkoDG3 NVErv3q4Hp05L83vR2Jj dXA+SKZkoHJ0uMP8 cE1bOkKlFrR3CRieG766 WmZamYLiFpyfn9bfc8ce qRq0AuK3ECZwvjJqsGal TEB7s1ZtNn15J59t IHdpZHRoPSIxNSUiIHZh gCfbxl3spL6zDi7+PGNv qBO9rYS4qG9mSlYwXpM5 SZeqW119FkExnLIp Fvcup7clf4wukXf7AhEi PULqplZgwZqeOCP3x9Gh Mu30X4SykYkav8LjWsi6 ux88sISya9Z3nPA9 A7GkKPEynzdfgERvxBjd UB7hIMKhekmuMHPyeS6i GHExO2d8PbEzClJ6NUrp Y3LhgxG8WUZzuFSr TKcuBLC5U01xq6P4YENq SMTlXCN8mDD5kE2vnAeh bjogbGVmdDsgdmVydGlj ZNscSOgsV828RPPa sNwdKCKfzW9dOYNxdKWw mQjbVI5sSCRzvixxOkAN B9QUT94VNEIXN5HYVnEd GSrEWS15B0QmPnx9 DUQvkTgwIT9kfLAmUBhc Ls4pxUezeUqoES5xCBFb yqzzOGKifD0rOQRaaPEm jUzfMZ6bBPFsytpt i098McUvWIP9HXSieREf U5DwvS3eGgUsMGUsOSTi I5NpuRZiYNpxL688MEci YqV1LJHpxkDnJ3Vj IFVwvBrqWrA3t1O0Oc1z IM4tHq3iEJG4CM55SD34 aQOoh6B6bWF1E9MsBZBy bqnrqgnjnTF4NRXg FOLinU80eEGgYPyvVd4o u2N8v609GYYmIGPizJ23 Hq6lzGsyBGDroVUXcP5l xjkan9vwluviUxEu YDYbHJh1XDb7JKNjjAnp CrJuKYV5AbS0ATE4tGDp aU3fhHmtxlsnyX6zHak+ FBAmEZQcupD9N2Pn Dve9DDJycVnxGL8kiUYj LJtuDw5puOsvnRplPC5b UKKvbzrhWRWrgK3eGFOx jZTpuOobPV3jLCRq keglx672DvFuAQS3VWCr qSDmB4DtdE1lYzTvMSJp UTSoG2MdqRWjDJbkH995 UItlJtB5BHVplkRb Z6LjYVTaaHpfKlY2r8J1 Yf6DTZrVIZ33RJ54wWWg w6I3zCR0L2WbELVhmpju bcimsWQ9UVSyNBPe cG82tGWvTHpcXh7aw5L5 i546AOXmMSIczD23Ze9s xVkqJZKvhUFJxS2mjwzj e6zyeanbFaFxDVPt MWf7HEy2FQOprZcvDpUu ANZ7UoT9PQQ4iJFxhW3l bCrsesfymC1qAmw+T1A8 M2YdMfpomBB+PC90 UEKwKR04tWAwmHTth6ia gJl5LdYsUQQxLRO4uHpb HJvpe0FjUAMzI78paKUu o5R4AVOgyIovkFUm PtHglIX9iX0kTRghpjym h5oqncdnAvcls1hxec29 iB11X64eXFljNHLaVLSo TLOcXZXqzBwdfa8d pB7aVz4+EKAwpAK1kMR1 dJ1zPkHcWsP0REtzD404 PdHsdAMgJypdo7iqw8uv rUa9TcUjYMIhfqBe dKnnWTB1w3PbHw90U85a IHdpZHRoPSIyMCUiIHZh dIbzcm1qfY0aZa5+PC9j b0wyes93nK36nAR+ ZXKfPTN2zHljOUeaZUHe tD0iJQsmBaT2WCPoNkWf pK32yITcGMseMz5trVoy lKxyPV6kNNOfdylv i745SeYmr9ymGVWgvYRo MPzkCWA2J13jk0Q2KWOw NIXqOUE2cOZ2eX7ijSnh bjogbGVmdDsgdmVy xDerSFoqHMciA926ISGl qQhtBsQgyMEaE3iutaTP BM9pEhbqaBY+PHRkIHN0 sXvoLPydRTTtlI6b BLIlG8z0IsLeZmF7CRwt R7BvllS7TNGzlYCqFVJb uPRAyJ0uaetll6nmlfwh YqUsOFUhAGx7RXl4 XBBleTwbEmNfWXD9JrN1 JJR7rDDezV5xhKoormku kS4tTdw+RklOOjwvdGQ+ OKOrRPZ6jMjeJXzt WBIyyG3qLTAwN4f7DwWm SsR5XNoyI1OigkN2VQQz mHIvRAZevDRThC4ezwbo p2yqkklfHhYcCGNp SJl6SCm9LMFtlFwwPxUu EGQ4KgK9FTK1xHKulY5z fIpaokiawF3tHux+TVJO OjwvdGQ+PHRkIHN0 sQsrKZdeGPMweN6cQKSq I9p8ZkWkVyJ6VAhwU1Vv tiD1BHKbmXZsDTAolYZN yH0dnldrj7isbphi DrThQJRgOFh6JWn3OSRs oJynTbIcAFY4DcP9VFQ5 aHKzzA3inGfhnpjtzJ2x Oyc+LYO2TNB5WC32 LQ36G2YbSuvixIBcbTT+ PHRhYmxlIHdpZHRoPScx MSXmYuAvySfzIG4tOp1g ZGVyLWNvbGxhcHNl OiB (more content not included)... [facility] Coding Summaryon 04-06-2021 Coding Summary HTMLBase 64 DmaxqbywAPa3bCs+PGhl YWQ+EH4MABDtP14acDPa nN8XD7wQQJ8NRUOZIGEL VO0WAL6baVY5GIcgK2Ey biAv BjtsoJWuAL82ZMu9GFU5 bQjrCPwlgP7meYTdU7k3 LzQwHR27zK53UTrbFWIf GaM9KdQbxbdmtTRp H5edKaWdnJQpPmf+PHRh YmxlIHdpZHRoPScxMDAl NlUwyAcbDA0iOp5wYZJc LWNvbGxhcHNlOiBj g8bxABRpVHtlYS8pyElq H4JrhOP3THTmp3n5Kr79 dHI+JSBkEXU3uJhrFTik z792EfKaz6ktNJE4 hEOzRNdiXAT7D87sd7A2 CHKsIYKkZPJ9oAJ8dX4s rGwsddyvJ6HfbHEeRoR1 CWX8tWWtjT4xrGdn xvkepL4mSid+Z22RXQ6R RMNTTH4VOpu6U9SeNrlt dHI+DO32QZDoMZ41dRWb mHIhi1tfwJl8HoRu EFLeJKR3jZvrBSqmq3Ag EPHnO99djZPoj3P6CICv sRldxVJlZlFgjNN4kW3n VOhhrmzto1wxnpqi Jigec0fuvn83jE38B77b TPzcDWGbNDE1TINrYYVl bKrncf9mjN7qKm1+IDxj a5olv9xajJq2TyIf OCHqskXohJobJRG6i8Gg Ae22O8UcvNlpk5NhUnx4 qx64mFObv6K1qCS7BElf VAPyvP6kSVayAiH5 FHAaUvIkfA17nTXsWNkl Qs1bvHvxyDmkTB2qZAKk xlybBHXmwY9bPLQmaZHm kMlqHB9gSLSxayup g540OkIsQPB1QPDgeEDn X9JqfF6iZuTaXDQlRCGz D4UmmVRaSMjwY318ENeq PiH1ZCFrxkKoJ4Eo ZBNezXyaUgK2o2M7Yy0P z6MozjcyBJE3JJxsJTT0 AdT6XiGvPiB3X2EhKbn3 KYFdxHekQB9zA2Yk TPZiifufmhizuNZ8IHVr YDHpmJ20bWIfWFtkQt5s n4K2b164AREpXILwcF47 Eg2eoBueGDEjtFXA bO2rgbrdc4qseyxqFcFt IFKmPAb5WHi0RYAugZmp AfDwCBO5AoF1ASH6xQJk dB5dqDvyqkughB1k Oyc+K78mjO3xUOL6URA9 puzyLUGumjNgSK85PH63 H9TwMpvxgMFbvQL+PGRp dlWzsEsyJV3yDoUi h5zin3ZcKWcqD6GiYDEu WTuoByr0FXLlMSO7eEE6 uA5sWDKtDDqrb8S7tMX4 F8CzoiCbbq4pf4rw PGArBLsjV85sbLAif7W9 BLKucIY7TMZlnRbtOsLa zP60Ssm+GWUkfXack4Ly Clwyt3bgq6olnYd8 IjMwJSIgdmFsaWduPSJ0 x4RhKr06F15xLLvxYCNw LBEnXELwVHTlkLdcgr5i tH3rBc3+PGNvbCB3 lEI2xE4kSHWeGtQ7VXnt Q478SjYaoICaLyvvg7ft o7dbbVu4KiNeHEUgeiYw mBigGRT6s8SpLq09 O35kZYowZQVdWNDkGVWl EVBwcMrsxv6udW4rTo5+ PD5zm1vgac85dI42vCW+ OIBzTNP8bZnvDAes UMEppH6vTKerRdG1CNKe VjKdkJ95uTPhLXtaZe7t oVpthSovSQ4vSCYekeru z469RwZkm3igHSRb jJZxEHdlKRK8K40lw8F0 TROcHCWvOHL2iZQ3rT4p bGlnbjogbGVmdDsgdmVy lTbcDYldBKxmX591 IHRvcDsnPlBhdGllbnQg ZaFvLFt8M3YjCvn1ZVCh mAvlVU8jfZUgLVdyUb1g zCteiTgkXK4jGIDr hylmf998QuOiz6goRDQo hOJrQNvcAQM0V62qg2T8 PVYxTXKeYPV4nON7fM0m bGlnbjogbGVmdDsg ogGolYwuGSiwISfwC503 IHRvcDsnPkJpcnRoIERh mLI6UD14BJ15fPKow7D3 dWA0O3HdANPdyaly svtuxOC1URMcXYVluZ56 Rk4kqNdrDu1oALYeTKI4 UAIekIZfM0RbfD0xXbJu PLHkJYWvP9WceYZb CHgqI180NAysXqG8CJDz jqRvC5EiZTFcpQifVjP5 o7X9Iy7WH6W5WN91UK42 qSGtq4H3sRI0M1Kh CDAoxmalmsxyiDX8SUWi GEIisX58Mc1qzUbmTo5z AYWxDRO0ZZLcmVObL4Xc sG2vGlVhNCOhBACq V9PfmSOsDBmaJ665CCeu JnG1NJHieyXjE8PcQXSi bZcaLjX4c9V2By3RHBg1 FC71PX59mUVvk4J9 gBL3O6NmAZEjpmhgesoi tHH3RHZoOKOutB40Zq0s bHfnCf9hOGSnCRK3CGOf zSFcG5RgzI7tVnWx TYPcXGFzH9LthBDsPKpp P590HYjeXyH5CDGznpDo T0DmXPOfrIvaXgK9z8F3 Xs4YOJVaMQ48XWS3 iNB8NS09DW15C2LjVoke dGFibGU+PHRhYmxlIHdp ZHRoPScxMDAlJyBzdHls GA9bLq2pYUTgERSw gRfvbUUlPxGbf9saYNHl IDygKE6riXukD1XrkOT5 IJPxb4i0Yj04A82kN3Cr dXA+LBByiIX5pIB1 bX1fKlFdNcL2TKfkS189 NjDyxDXiSdilm9wba9yk wYr2ZzL1MPOpcuFtxHtv GHL6l7OuNd51O47b IHdpZHRoPSIxNSUiIHZh jVsjnv6ppH4eLd9+PGNv pEK1dOE4bX2lGkUjKmQ8 DCfvP426YsFutWQq Mxene5iam3peoMp4WoTe ZTNylgLwzGacVTR0z3Zw Wb32C0KgdVnqu2JaOns2 ws78pAXnu2V1eYZ0 G3MpEYRnhyeffDKxxKsr WQ3wRIDvtyevVOXgyK0j JBClH5u7FvEpCcF4CYvl B5YbdeQ2FWMupKFk XAbrITT6Z34wl5B5TECm CKXrYWF0bEX3yU6zgPmm bjogbGVmdDsgdmVydGlj EArmJUnlR306QDDi nFxsVFCdyA9qKANxjYHy yRbkEU2nOWLqjrqdOeKS W6VWX05SHWFBV7GHFoJg UHqFCL53M7RlSne5 KZGwzGtyLM2bjTMiBLjn Xg7xbRyxuSbwWQ3dLSFt kfltSCJlfL4aILTieYYo mYfvQD9mIVDdxzjn p575ZxNuMXX6LAEmiRRe S9OzkM9gBpHuGXYsGFHi X1FexXEeMInpW745DExn XoY2TAYhwsJyB2Yl CMImwUnnYiU7d7Z1Gn0m GA6fJv2sSXW1DU26TT73 pXHlc2C3jAI7K2JdXUId sdemjtzwwPY7NPDa WTMttD12lBFmJDgwTe8b h0Y7c512NKCzZCBicV21 Hy2edLkmWVZjvTLCsE4f nwlrr2whpblyDsGz FFHsQHy0MOj9DHZbcZes BkUtAVD4CxJ5XPP2pOAz xZ2cnTlzmwymxS9nRvc+ YAZqHQFamwY8V8Zy Wja3NBKsmYkpVO1ecFRt JSxeNb4wbOqdpZirRJ1t CKRzuaruRWBznY9qZBYd gCXdaEanCU8cOFWm fwjuc128UeZiSEF9QJYl qSRqE6SsyW5lKhWuWXBp MDPeV1GbnIGeCHxeE886 QDrdLdY8ZUFnanOo Q7PxVSKtpYdnEmC3b8H3 Rt6RKAcUPJ61OY74uSCe n1I9xNT4F6XmRKEnvohx dumswSD4PJMwYGDc wI00eVFzGMmxZv7gj9G2 v300WWPmVEOzyA17Ln3b jLaxPXJetUTAaE4sudgk t5futslhJpFxJPQo SDn6FTb3BBHwyGlkUpSv CWV8QoC5STS1gCQpfO1o nDeuqvegxD4qWhk+RW1l nendrqV0KB42SS79 G7WyPpvycWHvjAN+PHRh YmxlIHdpZHRoPScxMDAl LmEkrYecZY3hDt4oMHBy LWNvbGxhcHNlOiBj b4zcKJBeBYzxOW2bgUbi G8WafCO2YQYex5x1Xw19 N06qZ5ZptAA+PGNvbCB3 cUN2sA6rJvDoVdR4 LFoeO057XnBeqKDrUqpg r4etk3mhyHp7MfAcCEVh thNxaUdvTAO6s2YxXa10 Z81hEHekTPBlIFSy ZDTkIVGubMtmgd6xyC4x Ii8+QCAvtAL2zYN1eQ8u AiGuAvZ8WSqfE804AwLi aDLwSblgQ44sG8Jf dXA+DLEdYmx3TSBifWqq YG5ziPGsFRkwIy4aKTW1 YiKiNqDzMBohB2KgWDYr rukliwxipPE2THUw HFPbyZ41Cx1inRviZx4q DCBaMBI5DCMdtMWdH8Fb eC4nEzUhHSEjQVYeR9Ic gFCxUEuuI080HKgw WpL6SBZxamPhB2RoZZMu jUfyQfZ2n6M8Rr7PfUol jGIaRN1pRsNvSEe9K3Jg Shv2YXRedYpoTU5x mHDrEKspOj3hcOgqyApn KI3vJAVssdwgk155IqVh g6baMFUlkMNwVVdeZSC4 U81dn2T7HGEiAHAb QCL1bLE1hB2anWeypojx bGVmdDsgdmVydGljYWwt SKxkO996AKRmvXxaEfYF Zsf4K7GcJea9LVTn zTwvHM3oyTTePPquWz9o zXfuoZqzBO7fYKInuiar b406DfTvq8rrIIHmnUWr VRbsJOX0V67fw9F3 KVCpRQBaGPN9bLD8wR1l bGlnbjogbGVmdDsgdmVy dYmvJYzhVPbdM077KSEs yGvpUb1VNzh9Q1Uq Abf9GCZjkFcaCU3ykWKe HOnjJf0mgNqarXsmRL5p RGXqgvitt766KeXjj6hx IDEwcHQgVGltZXM7 R66wv0R2RHMgUVEsFFR4 kHF3vE0jmYyuxrlowYCi dDsgdmVydGljYWwtYWxp G475MVLxjXaxNkPe eWVyOjwvdGQ+PW39ql62 I3CqVwwpFpx7RYAmLSY6 uVM9pI7yKGJdCWyao8G0 wYB8V5MntnUkcb8i b2x (more content not included)... [facility] Coding Summary HTMLBase 64 YoydddbnRGz7bXr+PGhl YWQ+DF1FPLVyZ48igHHs xQ6SX7eEZP9KUAPXYYNP PN0ZGA6ceMB5MCbpK2Oc biAv VbjolSVaQF30LEd7EVF2 dQrbWCyijA8jqIEqJ3d8 YtOrWD13xP65SHgpGMHt WvB2KlLvneiesORt U0roPhLmeJHrAat+PHRh YmxlIHdpZHRoPScxMDAl HaNqxYunUK1uOc6gOHXv LWNvbGxhcHNlOiBj s8mkJAPiNTvvNW9vuDms C6OdoPH4SXXgt2w2Ce50 dHI+XXMqDFN0vSlcXOxd q406WfFcr3ubITK4 kXAlAIweVZO5N54wc1Q3 GSLzNANvCKJ5hUP8vL3u sDuxizqkV2HecSMgDoY5 HUH7hOMrwC6qdFch ccjriY5wZkq+A61TUZ9H NSJDBR3BKct0M5PoFtiz dHI+LZ96BSFnUY19eVEq jFToy5ummBr1CqKa IQSvSHF9pUhqWMyex6Hj VPWoN34bsMIdk6R9CCOj aPysxVEoWuUkgPC7oD8f HWzijjlma7smkuki Glbgp2zgms60yO61H21p WNdvNAGnOIN4DILhAXRv iQavqb8cyC6wAo0+IDxj q9nuz9pzxJx3OnFx QRHbiwDrpQmePCI9q7Dg Xy39A0TabKeci8CbNgn9 us03iFQjw5E6kMI0JInl YJSnpH1bFFopPxV7 AJNgZqYvkT93dNZiHVgi Lv4mbRtkiEftIO9oZLTf zejcAGJibR1tCMFliSDo jPmmMK5fHZNziidg r363VpMgLMD0DGOaoFXr P1TgtI3sPjEpWKUoLJSv I9JyhFHdDMdtY321SEgc HhX5YTSjgeTrD7Ln ZBZpnKhwFrP1y9Z4Ir1B l5EjgphuMOJ3YKyxSWT8 RtY5LzKjTnH6T3HuYae5 LRVdfHycDP7iD3Kq WSXkbwuxdxraxJX7IMLo CSUowE34rWIiNEtuLe9z w5P2y333TMJnKVXhhT24 Ia3jiRnwARZytMNR vP3niuwpy4tvauqdUbHo VRKgEHe8FSw9HZGwvVsk OnOzMOG9RoN6GWN1hVUh rX2wdPzbavybvX5g Oyc+T16vsP0fFUG9SVM4 twwsPQBiyqTaCU74WC40 Q2CwJcfmvSOwwBO+PGRp xnWpwXftKY0wSpMj v2lug6XzMKhjH3XuPSYz YZkqYcd9RZFtDGO5nDL1 uS6nNEJwKYbpw0D2vGM0 B2BnhnYonx7ay4jl ZFEcTLshS33xkJXkx6T9 KQEgfZO9IQJpfUcgGiNf gT91Vhr+PBPxxWsvo8Ht Dhfxg3gjj5bceWt3 IjMwJSIgdmFsaWduPSJ0 p9VqQz17X28cNAfuTYCj APKgTLYxDHCkiRrvlr5m vC2fFe4+PGNvbCB3 yIA7gS7uXVVhOqC4CIty C414MmWbxMYeXsrjg1kc k7azjKk7IhEhNMYccoHm gCbwLXI5g6KjLi44 U24hZStfVFGxRXWxSCCs SKSmyUqrqk1piH9iIe8+ LV3xr6utid22bO06zHW+ MUFhBZD6lUeuRHkv MXNooD4oXJfyAqJ3TCWd AxZtpL59eMLaBUwdOf5r sYbctTsbHI2dLPMeodfb o498TbRcx9ojBHEo lQNmDSfoUEK7H25vi1J1 WQIvPZIjOGZ5wGW0vN7f bGlnbjogbGVmdDsgdmVy lRllKUuiPOpxH106 IHRvcDsnPlBhdGllbnQg AhUjMSj9W1HbHdt1SVEs qNkzVQ6nrIUyLPkrZy1w yVacgSoaSI3xTTEd jinpa337OrCpu5koCDNf vIFfCDjzPMV7G46dt4S5 HHKsSWAySQU2yWH4gE1g bGlnbjogbGVmdDsg plGjhLgxLRmmFRjtC972 IHRvcDsnPkJpcnRoIERh uXN5DM04TB91fSDem7V0 yXM8I6RqNIVyjbnc rgwjtFM6QYErCKFzoU24 Is4hqOutKi4nWIKeZMX4 VPUumASyS2SinE0dImGn ZJJgTPMrD0XvsPDp VKvkQ429RRueOiK3QNRh ufVlM0ArHLMmfWkqEjG8 z3V7Sb1KJ7V0OK20WP02 hHQlo3F4oRY9P4Gd FWNddgiuyjkllNY2DQSj OIIyoV76Yv4fpKwdPd6m YPMxCDO4QNInmYGiH3Px oZ5aFyDuESBzGGBq W2UoaSStWWycH285ENyr EhS7YISxufAeQ7GaNADg qAjkJqS4z4O6Cd2WRNq5 UD00QC63yESbo0D7 lOO1F5IcGGMjsvkkjdpu wSN9RYZwFHDhyN35Hk2t dJmjQy3tJEIbUYJ6FDLd hHUhG9AerQ8oCxDf MVWrQKSxS4VcuNXzXOha H673OYgnLjO5LACfwiGu E0WnNBEshYqqWfU4k2P0 Hc1IKBDvXX10XRU0 fFZ4OW56TI79K4ZxCwvx dGFibGU+PHRhYmxlIHdp ZHRoPScxMDAlJyBzdHls EC3kCz2yCUIdICTo cKaiiLVjKoCnz2reHQEr SJeqGY1jeTrdH1CclTD0 DOFmb7d4Mc24Y62mC9Au dXA+NSUqjBB8xKZ1 jJ6cXoUdHoR3IJjkP854 YdXdwTDmUrylj3voq1hw yVx3BkC0YHUldlNugOsa VEE4l5LbNr54R76r IHdpZHRoPSIxNSUiIHZh xGzvrm0hkK1kBx8+PGNv lBS8eGJ3tM0lLnVcXsR8 NVdcZ159KuBgsDSt Jcsos5ngg4njaEz9KgYu FMScguBuaBxmDTU1p3Qj Ix72L6VxuFqgi3BhZad9 ja74wAWwj6M4nEY5 H5HbOBEbcckmsJPuzKam IF6sZBBzozjeZVPeoN0c JMJuC5x1LyTtWcY4SYjf X6VaesE0FDAozUXb LNnzCXY6K63tr8W3RYZq GRRyAVD8fJQ9vW9udQdk bjogbGVmdDsgdmVydGlj XZvuIYshD666YYUs gUdjPNCtpT4jSTZpmKIl nVdcVG1fGDCoecjbFcMZ T5KUD22PCHVWT7BTNlPt NXyEJI95Z6JqSzu4 BKSxeXgtMK4xjFXkHGwo Ak2trSwnqBvjAE1oSQQt fqoyRHZilK6xIWCnjGAk eMuvZL7fJNDlnssh h854KjLlZRS4DGOyhYUw R3LboE1cDxSeCJHcOYTj J1BioSSjNVbrL325FIgk OxM9SKNayqXzR0Uc DJVpqNliOiD1e7Q2Ow4g CU5kXp9kRQO8GJ73PR44 nVLnn8W1iXZ7B2IyDWYm wikjsptlsAN9UDPz NDFrmB54tCFrDJlxXf9w q5I2x569JHMgYQMveF26 El1dxPzpMAKqlNOGgJ9n bsoqe4amnfmfXsBz AMNeHWa7ZZx8TQUjrOfd AtKjXEA0FeW9KIH7qWWy kD3qsIkvagekhZ6vMjs+ ZMSwSRWtumK1P0Tz Gqz2BTGmxFefKF3xgKGx FDpoZm4lyJfcoSfhXQ3s ZQDdnndzFYWqzA0bGZGt lQMjxSomXL3lIODn hjcgk930XiZuHWG3WKKa lSObL5KdeC4aSeEwDJSh KJYnY6QdmTFhLGbwT572 WYpoNvO6UTXtoaWb J0XxYOAswHpcVhJ8z0U7 Fe4AZLbVCG77PS14sZLo f0A0jLQ3I6LpUTSnsshq igznxAS3AXPuCUSq fA82nXTsTIqgVn6ys2I4 t643VPGwVYOpbR27Rp7f eBqqPEYtqVAUmD3ltbmf s3cjwpgvQlWcWNAx BEd8BLt1CUHtePijEiCj TAR9NyJ6TFB9rINpfW2t iNhryhmxaZ8gWmx+RW1l jindlhM9BE78VU28 U6FqOjhoiATgzZB+PHRh YmxlIHdpZHRoPScxMDAl VrFqiPtjRF7qHm6wVEYh LWNvbGxhcHNlOiBj p9vdPDYyANtiZX2tpFru X7YioCJ3CWSlp0f1Jd18 H61eO6AmxIZ+PGNvbCB3 rJH8mI5jBdRyZuT9 UNnaB833SrCvsFPsJart q9zhh7cidKn8NwTcZVZg hfMtfOheJQF6d6OhRd20 K19qAKyqAVGcBGPk WTFgWXKvjJuuym6fyZ2x Ii8+ORMhgRB9sJZ5rN2z NjLqZgU9RJnjH792JgEl yJAmSygoO06gV3Rk dXA+RYYpNwd2NVXjiCzw SF3tlCDjLBzpJt5yQCN5 HzVjKxSiEWobS5IbKHNv fimwpyyvtHI4QZFj EIDkiJ75Ko9ngYupRr0g OAJhMDR3KKUizZPlL4Pf vK2yMkKlZVYyBUFhN8Ab cFYjXTpgQ605MRyt FuH4GRJxtaYvH3UtUIGu cIncAhL2l1Z4Id1LsTri bJPrPR9aCxWmYCe6N6Td Rwv8LAXjkQdeLT9q cYTlDRskEe8fsKdgbXar WD4vAXOtcudhh278ZnEa v8doWWDuyRWnWDbeGHJ8 S07ze6Y6RFItDHTh RHI6vGI8zT4fbUsmxyck bGVmdDsgdmVydGljYWwt ZWgaQ210KDYslPkoLbKK Hin6O1IjZdc6JOVj eZjyJM9gjQXmOKpaPb2a bJwmkKbiAP9xPBSyiryg y719UrOkg2agCHIczKUr BHewZRX5T41sn5B4 VQKyYZRtBGR5nHZ8sT1a bGlnbjogbGVmdDsgdmVy vUsrWTzxXYiaQ903JOLd eWvtUr0EFgn2V5Ix Keh9DILvjProFS5txOXl KQmkKp7shUckhGebXY7x IRPidqukm084CxWwn4rl IDEwcHQgVGltZXM7 S46yq9I4RWFcLGPcFWS8 xWD1mM9hqAkppmdstGYv dDsgdmVydGljYWwtYWxp C949SJGmmJkaKzCe eWVyOjwvdGQ+TD14ow93 A7MdHvfdUqk0FRBfJLA3 rEY4wJ8cGKAkPXqwx0U9 mFI4C1HfdwHrnu6c b2x (more content not included)... Normal [facility] ED Clinical Summaryon 2020 ED Clinical Summary [facility] - Emergency Department [address] [place] [address] ED Clinical Summary PERSON INFORMATION Name: ROSA EASTMAN Age: 55 Years Sex: MALE : 1965 MRN: Acct#: Visit Reason: Hand pain-swelling; RIGHT WRIST PAIN Arrival: 04/01/2021 19:05:43 Discharge: 04/01/2021 19:35:00 LOS: 000 00:30 Check In: 04/01/2021 19:05:43 Checkout:04/01/2021 19:35:00 Address: [address] [place] [address] PCP: Provider, None PROVIDER INFORMATION Provider Role [...] and Forearm Exercises-SportsMed; Cryotherapy Follow-Up: With: Address: [facility]: Andrew Mckenzie DO [address] [place] [address] Within 3 to 5 days DIAGNOSIS: 1:Sprain of right wrist Patient Understands: Yes - Patient/family/careg iver verbalizes understanding of instructions given Comment: Normal [facility] ED Patient Summaryon 021 ED Patient Summary [facility] - Emergency Department [address] [place] [id number] PATIENT DISCHARGE INSTRUCTIONS Patient Information Name: ROSA EASTMAN Age: 55 Years Date of : 1965 Reason For Visit: Hand pain-swelling; RIGHT WRIST PAIN Arrival Time: 04/01/2021 19:05:43 Primary Care Physician: Provider, None Attending Physician: Medhat Hernandez MD Comment: Visit Diagnosis: Diagnoses This Visit Hand pain-swelling ([id number]) Sprain of right wrist (S63.501A) Prescription Information: If you have been given a prescription for narcotics, seek immediate medical attention if you have any difficulty breathing or any sudden status changes such as confusion and sleepiness. If you or anyone you know is experiencing suicidal thoughts, mental health, alcohol and/or drug addiction problems; contact the [facility] 02/06 Crisis Hotline -Text 5NVJD ol 860681. If you received any narcotics, sedation, or [...] documents With: Address: When: Andrew Mckenzie DO [address] [place] [address] Within 3 to 5 days Medication Information: The exam and treatment you received today in the [facility] Emergency Department were for an urgent problem and are not intended as complete care. It is important for you to follow up with a doctor, nurse practitioner, or physician?s anesthesiologists' assistant for ongoing care. If your symptoms [...] of medications post discharge. Please inform your software build engineer/provider of your visit and for further instruction on these medications. Any specific questions regarding your chronic medications and dosages should be discussed with your primary care physician(s) and/or pharmacist. Medications to Continue That Have Not Changed Other Medications acetaminophen-hydroc odone (hydrocodone-acetami nophen 5 mg-325 mg (Welch 5)) 1 tab(s) Oral Every 6 hours [...] Time Vital Sign Value Performing Clinician Facility 03-23-2025 13:13-0400 Body height 172.7 cm Charmaine Lowe PA Work Phone: [facility] 03-23-2025 13:13-0400 Body mass index (BMI) [Ratio] 31.02 kg/m2 Charmaine Lowe PA Work Phone: [facility] 03-23-2025 13:13-0400 Body weight 92.53 kg Charmaine Lowe PA Work Phone: [facility] 03-23-2025 13:13-0400 Diastolic blood pressure 86 mm[Hg] Charmaine Lowe PA Work Phone: [facility] 03-23-2025 13:13-0400 Systolic blood pressure 130 mm[Hg] Charmaine Lowe PA Work Phone: [facility] 12-28-2024 13:00-0500 Body height 172.7 cm Charmiane Lowe PA Work Phone: [facility] 12-28-2024 13:00-0500 Body mass index (BMI) [Ratio] 30.87 kg/m2 Charmaine Lowe PA Work Phone: [facility] 12-28-2024 13:00-0500 Body weight 92.08 kg Charmaine Lowe PA Work Phone: [facility] 12-28-2024 13:00-0500 Diastolic blood pressure 78 mm[Hg] Charmaine Lowe PA Work Phone: [facility] 12-28-2024 13:00-0500 Systolic blood pressure 132 mm[Hg] Charmaine Lowe PA Work Phone: [facility] 12-14-2024 14:15-0500 Body height 172.7 cm Hilario Small MD Work Phone: [facility] 12-14-2024 14:15-0500 Body mass index (BMI) [Ratio] 31.02 kg/m2 Hilario Small MD Work Phone: [facility] 12-14-2024 14:15-0500 Body weight 92.53 kg Hilario Small MD Work Phone: [facility] 12-14-2024 14:15-0500 Diastolic blood pressure 78 mm[Hg] Hilario Small MD Work Phone: [facility] 12-14-2024 14:15-0500 Heart rate 91 /min Hilario Small MD Work Phone: [facility] 12-14-2024 14:15-0500 Systolic blood pressure 136 mm[Hg] Hilario Small MD Work Phone: [facility] 09-06-2024 13:16-0400 Body height 172.7 cm Candida Sidhu PA Work Phone: [facility] 09-06-2024 13:16-0400 Body mass index (BMI) [Ratio] 32.54 kg/m2 Candida Sidhu PA Work Phone: [facility] 09-06-2024 13:16-0400 Body weight 97.07 kg Candida Sidhu PA Work Phone: [facility] 09-06-2024 13:16-0400 Diastolic blood pressure 80 mm[Hg] Candida Sidhu PA Work Phone: [facility] 09-06-2024 13:16-0400 Heart rate 59 /min Candida Sidhu PA Work Phone: [facility] 09-06-2024 13:16-0400 Respiratory rate 16 /min Candida Sidhu PA Work Phone: [facility] 09-06-2024 13:16-0400 SaO2% (BldA) [Mass fraction] 99 % Candida Sdihu PA Work Phone: [facility] 09-06-2024 13:16-0400 Systolic blood pressure 120 mm[Hg] Candida Sidhu PA Work Phone: [facility] 12-09-2023 15:33-0500 Body height 172.7 cm Hilario Small MD Work Phone: [facility] 12-09-2023 15:33-0500 Body mass index (BMI) [Ratio] 31.02 kg/m2 Hilario Small MD Work Phone: [facility] 12-09-2023 15:33-0500 Body weight 92.53 kg Hilario Small MD Work Phone: [facility] 12-09-2023 15:33-0500 Diastolic blood pressure 78 mm[Hg] Hilario Small MD Work Phone: [facility] 12-09-2023 15:33-0500 Heart rate 79 /min Hilario Small MD Work Phone: [facility] 12-09-2023 15:33-0500 Systolic blood pressure 130 mm[Hg] Hilario Small MD Work Phone: [facility] [employer] 02-20-2023 14:00-0400 Body height 172.72 cm Josué Evangelista Other [employer] Other 02-20-2023 14:00-0400 Body mass index (BMI) [Ratio] 32.08 kg/m2 Josué Evangelista Other [employer] Other 02-20-2023 14:00-0400 Body weight 95.71 kg Josué Evangelista Other [employer] Other 02-20-2023 14:00-0400 Diastolic blood pressure 80 mm[Hg] Josué Evangelista Other [employer] Other 02-20-2023 14:00-0400 Systolic blood pressure 130 mm[Hg] Josué Evangelista Other [employer] Other 01-22-2023 09:40-0400 Diastolic blood pressure 84 mm[Hg] DO Britt Rumschlag Work Phone: [facility] 01-22-2023 09:40-0400 Heart rate 70 /min DO Britt Rumschlag Work Phone: [facility] 01-22-2023 09:40-0400 Respiratory rate 16 /min DO Britt Rumschlag Work Phone: [facility] 01-22-2023 09:40-0400 SaO2% (BldA) [Mass fraction] 96 % DO Britt Rumschlag Work Phone: [facility] 01-22-2023 09:40-0400 Systolic blood pressure 136 mm[Hg] DO Britt Rumschlag Work Phone: [facility] 01-22-2023 08:47-0400 Body temperature 98 [degF] DO Britt Rumschlag Work Phone: [facility] 01-22-2023 08:12-0400 Inhaled oxygen flow rate 10 L/min DO Britt Rumschlag Work Phone: [facility] 01-22-2023 07:35-0400 Body height 172.72 cm DO Britt Rumschlag Work Phone: [facility] 01-22-2023 07:35-0400 Body mass index (BMI) [Ratio] 32.4 kg/m2 DO Britt Rumschlag Work Phone: [facility] 01-22-2023 07:35-0400 Body weight 96.8 kg DO Britt Rumschlag Work Phone: [facility] 03-13-2022 11:45-0400 Body height 172.72 cm Harvey Holt Other [employer] Other 03-13-2022 11:45-0400 Body mass index (BMI) [Ratio] 32.23 kg/m2 Harvey Holt Other [employer] Other 03-13-2022 11:45-0400 Body weight 96.16 kg Harvey Holt Other [employer] Other 01-14-2022 14:30-0500 Body height 172.72 cm Harvey Holt Other [employer] Other 01-14-2022 14:30-0500 Body mass index (BMI) [Ratio] 32.23 kg/m2 Harvey Holt Other [employer] Other 01-14-2022 14:30-0500 Body weight 96.16 kg Harvey Holt Other [employer] Other 09-19-2021 11:00-0500 Body height 172.72 cm Harvey Holt Other [employer] Other 09-19-2021 11:00-0500 Body mass index (BMI) [Ratio] 32.23 kg/m2 Harvey Holt Other [employer] Other 09-19-2021 11:00-0500 Body weight 96.16 kg Harvey Holt Other [employer] Other 09-19-2021 11:00-0500 Diastolic blood pressure 87 mm[Hg] Harvey Holt Other [employer] Other 09-19-2021 11:00-0500 Systolic blood pressure 130 mm[Hg] Harvey Holt Other [employer] Other Encounters Encounter Date Encounter Type Care Provider Facility Start: 03-23-2025 End: 03-23-2025 Bamboo flowsheet Charmaine Lowe PA Work Phone: [facility] Start: 03-23-2025 End: 03-23-2025 Bamboo flowsheet Charmaine Lowe PA Work Phone: [facility] Start: 03-23-2025 End: 03-23-2025 Office outpatient visit 25 minutes Charmaine Lowe PA Work Phone: [facility] Comment on above: Lumbosacral radiculo max (Primary Dx); Ulnar neuropathy at elbow of right upper extremity; Balance problems; Memory change; GIRMA (obstructive sleep apnea) Start: 02-28-2025 End: 02-28-2025 ambulatory Richard Lezama MD [facility] Start: 02-01-2025 End: 02-01-2025 ambulatory CHARMAINE LOWE Not Available Start: 01-31-2025 End: 01-31-2025 ambulatory [facility] MD [facility] Start: 01-25-2025 End: 01-25-2025 ambulatory MANI CARPENTER Not Available Start: 12-28-2024 End: 12-28-2024 Bamboo flowsheet Charmaine Lowe PA Work Phone: [facility] Start: 12-28-2024 End: 12-28-2024 Bamboo flowsheet Charmaine Lowe PA Work Phone: [facility] Start: 12-28-2024 End: 12-28-2024 Office outpatient visit 25 minutes Charmaine PUENTES Work Phone: [facility] Comment on above: Radiculopathy, cervi alex region (Primary Dx); Memory change; GIRMA (obstructive sleep apnea); Balance problems Start: 12-28-2024 End: 12-28-2024 ambulatory CHAMRAINE CASTRO Not Available Start: 12-14-2024 End: 12-14-2024 Office outpatient visit 15 minutes Hilario Small MD Work Phone: [facility] Comment on above: Benign localized pro static hyperplasia with lower urinary tract symptoms (LUTS) (Primary Dx) Start: 12-09-2024 End: 12-09-2024 Telephone encounter Teresa Mendoza LPN [facility] Start: 09-13-2024 End: 09-13-2024 ambulatory Richard Lezama MD Facility: [facility] Start: 09-06-2024 End: 09-06-2024 Bamboo flowsheet Candida Sidhu PA Work Phone: [facility] Start: 09-06-2024 End: 09-06-2024 Bamboo flowsheet Candida Sidhu PA Work Phone: [facility] Start: 09-06-2024 End: 09-06-2024 Office outpatient visit 15 minutes Candida PUENTES Work Phone: [facility] Comment on above: Balance problems [...] End: 10-15-2023 ambulatory CANDIS N DEXTER [facility] Start: 10-14-2023 End: 10-15-2023 ambulatory BRITT RUMSCHLAG [facility] Start: 03-04-2023 End: 03-05-[address] DOCTOR GARCIA Facility: Start: 02-28-2023 End: 02-28-2023 ambulatory Josué Evangelista Other [facility] Other Start: 02-28-2023 Telephone encounter Josué Evangelista [facility] Start: 02-20-2023 End: 02-20-2023 ambulatory Josué Evangelista Other [facility] Other Start: 02-20-2023 Postop follow up vis it related to original px Josué Evangelista [facility] Start: 01-22-2023 End: 01-22-2023 Admission to same day surgery center DO Britt Rumschlag Work Phone: [facility] [place] Start: 01-22-2023 End: 01-22-2023 ambulatory Josué Evangelista Facility:[facility] Start: 01-22-2023 End: 01-22-2023 ambulatory DO Britt Rumschlag Work Phone: [facility] Work Phone: Start: 01-13-2023 End: 03-06-2023 ambulatory Josué Evangelista Facility:[facility] Start: 01-13-2023 End: 01-13-2023 ambulatory DO Britt Rumschlag Work Phone: [facility] Work Phone: Start: 01-13-2023 End: 01-13-2023 Patient encounter procedure DO Britt Rumschlag Work Phone: [facility] Work Phone: Start: 12-06-2022 End: 12-06-2022 ambulatory Josué Evangelista Facility:[facility] Start: 12-06-2022 End: 12-06-2022 Patient encounter procedure DO Britt Rumschlag Work Phone: [facility] [place] Work Phone: Start: 08-10-2022 End: 08-10-2022 ambulatory [facility] Facility: Start: 07-08-2022 End: 07-08-2022 ambulatory Candida Sidhu Facility:[facility] Start: 07-08-2022 End: 07-08-2022 Patient encounter procedure [facility] [address] Start: 06-21-2022 End: 06-21-2022 ambulatory Candida [place] [facility] [facility] Start: 06-21-2022 End: 06-21-2022 Patient encounter procedure [facility] [place] Start: 03-13-2022 End: 03-13-2022 ambulatory Harvey Holt Other [facility] [employer] Other Start: 03-13-2022 Office outpatient vi sit 15 minutes Harvey Holt [facility] Start: 01-14-2022 End: 01-14-2022 ambulatory Harvey Holt Other [facility] [employer] Other Start: 01-14-2022 Office outpatient vi sit 15 minutes Harvey Holt [facility] Start: 10-16-2021 [facility] Harvey Holt [facility] Start: 10-16-2021 End: 10-16-2021 ambulatory Harvey Holt Other [facility] [employer] Other Start: 09-19-2021 End: 09-19-2021 ambulatory Harvey Holt Other [facility] [employer] Other Start: 09-19-2021 Office outpatient ne w 45 minutes Harvey Holt [facility] Procedures Date Procedure Procedure Detail Performing Clinician Start: 12-14-2024 MEASURE POST VOID RESIDUAL Hilario Small MD Work Phone: Start: 01-22-2023 Decompression of uln ar nerve DO Britt Rumschlag Work Phone: Start: 12-06-2022 X-ray of cervical spine DO Britt Myworldwallschlag Work Phone: Start: 07-08-2022 MRI of head Plan of Treatment Date Care Activity Detail Author Start: 07-11-2025 Influenza vaccination Influenz a Vaccine (Season Ended) [facility] Start: 06-09-2025 End: 06-09-2025 Patient encounter procedure 06/09/2025 11:20 AM EDT Office Visit SAMANTHA CARDENAS [address] [place] [address] Charmaine Ackerman NP [address] [place], [place] SAMANTHA CARDENAS Start: 03-23-2025 End: 03-23-2025 Patient encounter procedure 03/23/2025 1:00 PM EDT Office Visit SAMANTHA CARDENAS [address] [place] [address] Charmaine Castro PA [address] [place] [address] Arrived SAMANTHA CARDENAS Comment on above: Arrived Start: 02-01-2025 End: 02-01-2025 Patient encounter procedure 02/01/2025 12:40 PM EDT Office Visit SAMANTHA CARDENAS [address] [place] [address] Charmaine Castro PA [address] [place] [id number] SAMANTHA CARDENAS Start: 01-25-2025 End: 01-25-2025 Patient encounter procedure 01/25/2025 11:00 AM EDT Procedure Visit SAMANTHA CARDENAS [address] [place] [address] Mani Carpenter MD [address] [place] [address] SAMANTHA CARDENAS Start: 12-28-2024 End: 12-28-2025 EMG 2 Extremities EMG 2 Extremities Neurology Routine Radiculopathy, cervical region Expected: 12/28/2024 (Approximate), Expires: 12/28/2025 [facility] Work Phone: Comment on above: Expected: 12/28/2024 (Approximate), Expires: 12/28/2025 Start: 12-28-2024 End: 12-28-2024 Patient encounter procedure RICHAR CARDENA[address] Comment on above: Arrived Start: 12-14-2024 End: 12-14-2024 Patient encounter procedure 12/14/2024 2:15 PM EST Office Visit [facility] [address] [place] [address] A [facility] [place] [address] Hilario Small MD [address] [place] [address] [facility] Start: 12-09-2024 Adult BMI Screening Adult BMI Screen ing [facility] Start: 12-09-2024 Tobacco Screening Tobacco Screening [facility] Start: 12-08-2024 End: 11-08-2025 Prostatic specific antigen, diagnostic Prostatic specific antigen, diagnostic Lab Routine Benign localized prostatic hyperplasia with lower urinary tract symptoms (LUTS) Expected: 12/08/2024 (Approximate), Expires: 11/08/2025 [facility] Work Phone: Comment on above: Expected: 12/08/2024 (Approximate), Expires: 11/08/2025 Start: 09-06-2024 End: 09-06-2024 Patient encounter procedure 09/06/2024 1:20 PM EDT Office Visit [facility] [place] [facility] [address] [place] [id number] Candida Sidhu PA [address] [place] [address] Arrived [facility] Comment on above: Arrived Start: 07-11-2024 COVID-19 Vaccine ( season) COVID-19 Vaccine ( season) [facility] Start: 07-11-2024 Influenza vaccination N [facility] Start: 03-10-2024 Tobacco Counseling Tobacco Counselin g [facility] Start: 07-11-2023 COVID-19 Vaccine ( season) COVID-19 Vaccine ( season) [facility] Start: 07-11-2023 Influenza vaccination Influenza Vacc ine [facility] Start: 01-22-2023 End: 01-22-2023 [facility] Start: 07-08-2022 MRI of head MR head/brain wo con [facility] Start: 07-08-2022 End: 07-08-2022 Patient encounter procedure Departed Clinical [facility] [address] Start: 2017 Administration of varicella zoster vaccine Zoster (Shingles) Vaccine (1 of 2) [facility] Start: 1986 DTaP,Tdap and Td Vac cines (1 - Tdap) DTaP,Tdap and Td Vaccines (1 - Tdap) [facility] Start: 1985 Adult BMI Follow Up Plan Adult BMI Follow Up Plan [facility] Start: 1979 Depression Screening Depression Scre ening [facility] Start: 1967 Screening for malign ant neoplasm of colon [facility] Start: 1967 Tobacco Counseling Tobacco Counselin yamila [facility] Patient referral [facility] Work Phone: Immunizations Immunization Date Immunization Notes Care Provider Augustus villanueva 03-07-2021 COVID-19 mRNA, Comirnaty (Pfizer) [facility] 02-14-2021 COVID-19 mRNA, Comirnaty (Pfizer) [facility] 12-08-2020 influenza virus vaccine, unspecified formulation Candida PUENTES Work Phone: [facility] Payers Date Payer Category Payer Unknown 2022 Medicaid [id number] 2022 Medicaid [id number] 2022 Self-pay [id number] 1965 Unknown [id number] 2.16.84 0.1.526200.3.579.2.593 1967 Unknown [id number] 2.16.84 0.1.776059.3.579.2.593 1967 Unknown [id number] 2.16.8 40.1.970246.3.579.2.173 1967 Unknown [id number] 2.16.8 40.1.440238.3.579.2.173 1967 Unknown [id number] 2.16.8 40.1.219640.3.579.2.173 1967 Unknown [id number] 2.16.84 0.1.230481.3.579.2.1259 1967 Unknown [id number] 2.16.84 0.1.562178.3.579.2.1259 1967 Unknown [id number] 2.16.84 0.1.665438.3.579.2.1259 1967 Unknown [id number] 2.16.84 0.1.327461.3.579.2.1259 1967 Unknown [id number] 2.16.84 0.1.380021.3.579.2.1259 1967 Unknown [id number] 2.16. 840.1.750079.3.579.2.196 1967 Unknown [id number] 2.16. 840.1.216156.3.579.2.196 1967 Unknown [id number] 2.16. 840.1.069697.3.579.2.196 1967 Unknown [id number] 2.16. 840.1.142414.3.579.2.196 1967 Unknown [id number] 2.16. 840.1.999421.3.579.2.196 1967 Unknown [id number] 2.16. 840.1.551719.3.579.2.196 1967 Unknown [id number] 2.16. 840.1.318288.3.579.2.196 1959 Unknown [id number] 2.1 6.840.1.585453.19 Unknown [id number] 2.1 6.840.1.007916.19 Unknown [id number] 2.16.8 40.1.225294.3.579.2.531 Unknown [id number] 2.16.8 40.1.543062.3.579.2.531 Unknown [id number] 2.16.8 40.1.630639.3.579.2.531 Unknown [id number] 2.16.8 40.1.660972.3.579.2.531 Unknown [id number] 2.16.8 40.1.170720.3.579.2.531 Social History Date Type Detail Facility Start: 04-23-2024 End: 02-01-2025 Sex Assigned At [facility] [employer] Other Start: 10-16-2021 End: 01-22-2023 Tobacco smoking status NHIS Smoker (finding) [facility] Start: 1965 Sex Assigned At Male F [facility] Start: 09-10-2022 End: 04-23-2024 Tobacco smoking status NHIS Smokes tobacco daily [facility] History of tobacco use Cigarette Smoker [facility] Start: 04-23-2024 Tobacco use and exposure User of smokeless tobacco [facility] Start: 04-23-2024 End: 02-01-2025 Alcoholic beverage intake Current drinker of alcohol (finding) [facility] Start: 04-23-2024 End: 02-01-2025 History of Social function [facility] How often to you hav e a drink containing alcohol? Monthly or less [facility] How many standard drinks containing alcohol do you have on a typical day? 1 or 2 [facility] How often do you hav e 6 or more drinks on 1 occasion? Less than monthly [facility] Start: 1965 Sex assigned at Not on file P [facility] Start: 09-10-2022 Tobacco use and exposure Smokeless tobacco non-user [facility] Childcare Unknown [facility] Start: 05-03-2021 Alcohol Comment OCCASIONAL [facility] Start: 07-12-2015 Sex Male (finding) [facility] Medical Equipment Procedure Code Equipment Code Equipment Origin al Text Equipment Identifier Dates BONE 7MM DUO FORTITUDE SERIES FDA Start: 10-16-2021 Spinal fixation plate, non-bioabsorbable [id number] FDA Start: 10-16-2021 Bone-screw inter nal spinal fixation system, non-sterile [id number] FDA Start: 10-16-2021 Bone-screw inter nal spinal fixation system, non-sterile ()[id number] FDA Start: 10-16-2021 BONE 7MM DUO FORTITUDE SERIES FDA Start: 10-16-2021 BONE 7MM DUO FORTITUDE SERIES FDA Start: 10-16-2021 BONE 7MM DUO FORTITUDE SERIES FDA Start: 10-16-2021 Goals Date Patient Goal Desired Activity /State Clinical Notes 04-01-2021 to 03-23-2025 DELORIS Betancur 03/23/2025 1:00 PM EDTTalbert Small MD - 12/14/2024 2:15 PM ESTTelephone Encounter - Teresa Mendoza LPN - 12/09/2024 1:03 PM DELORIS Staples - 09/06/2024 1:20 PM EDT Note Date & Type Note Facility 03-23-2025 History of Presen t illness Narrative Images from the original note were not included. Subjective Rosa Eastman is a 59 y.o. year old male No chief complaint on file. Past Medical History: Diagnosis Date Osteoarthritis Seizure [...] Yes Medication Documentation Review Audit Reviewed by Stef Berg MA (Slicing Machine Operator/Tender) on 03/23/25 at 1314 Medication Order Taking? Sig Documenting Provider Last Dose Status cyclobenzaprine (Flexeril) 5 MG tablet [id number] Yes TAKE 2 TABLETS BY MOUTH AT BEDTIME DELORIS Betancur Active gabapentin (Neurontin) 100 MG capsule [id number] Yes Take 100 mg by mouth in the morning and 100 mg before bedtime. Historical ProviderMD Active latanoprost (Xalatan) 0.005 % ophthalmic solution [id number] Yes Administer 1 drop into both eyes at bedtime DELORIS Steele Active meclizine (Antivert) 25 MG tablet [id number] Yes Take 25 mg by mouth as needed in the morning and 25 mg as needed at noon and 25 mg as needed in the evening for dizziness. DELORIS Steele Active omeprazole (PriLOSEC) [address] capsule [id number] Yes Take 40 mg by mouth in the morning. Take before meals. Do not crush or chew. Historical ProviderMD Active rosuvastatin (Crestor) 10 MG tablet [id number] Yes Take 10 mg by mouth Daily Historical ProviderMD Active HPI Dizziness -on Meclizine PRN -denies any recent episodes Confusion/Memory changes -confusion is still about the same, denies worsening -reports word finding difficulty at times -having trouble with focusing and concentrating -denies any trouble with ADL's -sleeping good at night -wears CPAP nightly -occasionally has trouble falling asleep -he gets 6-8 hours a night -denies any hallucinations Back pain/ Lumbosacral radiculopathy -started MOBIC at last visit -ran out and didn't have filled wasn't working anyway -states that EMG made his sx worse -on Flexeril -continues to follow with pain management -has MRI for tomorrow morning per pain management -had an injection yesterday -pain today is 9/10 -numbness and tingling in right leg -balance is off -denies any recent falls NECK PAIN/PARESTHESIAS -reports some neck pain -weather changes are the trigger -radiates into right shoulder -constant numbness and tingling in hands -dropping things ROS Review of Systems Constitutional: Negative. Respiratory: Negative. Cardiovascular: Negative. Gastrointestinal: Negative. Musculoskeletal: Positive for back pain and neck pain. Neurological: Positive for dizziness, weakness and numbness. Psychiatric/Behavioral: Positive for decreased concentration. Objective Visit Vitals BP 130/86 Ht 5' 8 Wt 204 lb BMI 31.02 kg/m Smoking Status Every Day BSA 2.11 m Heart-RRR Neurological Exam Mental Status Awake, alert and oriented to person, place and time. Memory: MOCA 22/30. Speech is normal. Language is fluent with no aphasia. Attention and concentration are normal. Fund of knowledge is appropriate for level of education. Cranial Nerves CN II: Visual villeda full to confrontation. CN III, [...] triceps, wrist extensors, wrist extensors, wrist flexor, sample room supervisor strength 5/5. LUE Strength deltoid, biceps, triceps, wrist extensors, wrist extensors, wrist flexor, sample room supervisor strength 5/5. RLE Strength illopsoas, quadriceps, tibialis anterior, and gastrocnemius strength 5/5. LLE Strength illopsoas, quadriceps, tibialis anterior, and gastrocnemius strength 5/5. Tone Normal tone x4 extremities. Reflexes: RUE biceps reflex 3, brachioradialis reflex 2 LUE biceps reflex 3, brachioradialis reflex 2 RLE knee reflex 3, LLE knee reflex 3, Assessment and Plan Balance problems Hyper reflexia Radiculopathy, cervical region [...] of the of the right upper extremity 2021 that revealed a moderate, remote C8 motor radiculopathy. He notes at times his right lower leg gives out on him and this causes him to fall upon standing from a chair. Lumbar back pain Lumbosacral radiculopathy Patient with [...] currently due to his GI issues. He has received 4 epidural injections with improvement in symptoms and recently had an ablation. He continues on Flexeril as needed. He is following with pain management and is receiving injections. GIRMA (obstructive sleep apnea) Treated with CPAP. He has improved his compliance with CPAP. Memory change Patient has been experiencing confusion [...] on CPAP and has improved his compliance. His memory is at baseline. Ulnar neuropathy EMG of the BUE 01/25/25 revealed ulnar neuropathy on the right that is moderate in degree and worsened since study in 2021. There is median neuropathy on the right that is similar in degree electrically. He did not respond to Mobic and stopped taking. He is seeing pain management and an MRI cervical spine was ordered recently. Compliance download 03/23/2024: revealed usage days and [...] paracentral focal spondylosis or disc protrusion. PLAN He would like to try another anti inflammatory. Trial diclofenac 20mg PO BID for inflammatory pain. I counseled the patient on the side effects of medications. He was advised to take with food. Continue Flexeril 10mg PO prn bedtime for muscle spasms . Continue to follow up with pain management and with MRI results. I counseled the patient on fall precautions. I discussed the high risk of trauma and debility associated with falls. Patient verbalized understanding. Follow up in 2-3 months documented in this encounter [facility] 12-14-2024 History of Presen t illness Narrative Images from the original note were not included. [address] [place] [address] B [facility] [address] Patient: Rosa Eastman Date of : 1965 [...] 05/03/2021 Performed by Carlos Olmos MD at [facility] TONSILLECTOMY ULNAR NERVE REPAIR [...] understanding. documented in this encounter [facility] 12-09-2024 Miscellaneous Notes Contacted the Pt. To remind him to get his PSA drawn before his appt on Friday with MD Drew. No further questions at this time. documented in this encounter [facility] 12-09-2024 Telephone encounter Note Contacted the Pt. To remind him to get his PSA drawn before his appt on Friday with MD Drew. No further questions at this time. [facility] 09-06-2024 History of Presen t illness Narrative [...] Review Audit Reviewed by Sophy Hays MA (Slicing Machine Operator/Tender) on 09/06/24 at 1323 Medication Order Taking? Sig Documenting Provider Last Dose Status cyclobenzaprine (Flexeril) 5 MG tablet [id number] Take 2 tablets (10 mg) by mouth at bedtime DELORIS Steele 09/01/24 2359 gabapentin (Neurontin) 100 MG capsule [id number] Take 100 mg by mouth in the morning and 100 mg before bedtime. Historical ProviderMD Active latanoprost (Xalatan) 0.005 % ophthalmic solution [id number] Administer 1 drop into both eyes at bedtime DELORIS Steele Active meclizine (Antivert) 25 MG tablet [id number] Take 25 mg by mouth 3 (three) times a day as needed for dizziness DELORIS Steele Active omeprazole (PriLOSEC) [address] capsule [id number] Take 40 mg by mouth in the morning. Take before meals. Do not crush or chew.. Historical ProviderMD Active rosuvastatin (Crestor) 10 MG tablet [id number] Take 10 mg by mouth Daily Historical [...] -admits weakness in hand and trouble with sample room supervisor -finds himself dropping things -balance is good [...] triceps, wrist extensors, wrist extensors, wrist flexor, sample room supervisor strength 5/5. LUE Strength deltoid, biceps, triceps, wrist extensors, wrist extensors, wrist flexor, sample room supervisor strength 5/5. RLE Strength illopsoas, quadriceps, tibialis [...] EMG pending course documented in this encounter [facility] 12-09-2023 History of Presen t illness Narrative Images from the original note were not included. [address] [place] [address] A [facility] B [facility] [address] Patient: Rosa Eastman Date of : 1965 [...] 05/03/2021 Performed by Carlos Olmos MD at [facility] TONSILLECTOMY ULNAR NERVE REPAIR [...] for your understanding. 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 I will see him on an as-needed basis I think he has had a good outcome overall. [employer] Other 05-04-2022 Evaluation note* Encounter Date Diagnosis [...] Cervical spondylosis with myelopathy (ICD-10 - M47.12) [employer] Other 03-29-2022 NoteEducation Materials Neurology Paresthesia Paresthesia [...] or sweet foods. General instructions ? Take [id number]-hdhbbaa and prescription medicines only as told by [...] provider. Document Revised: 11/22/2019 Document Reviewed: 11/05/2018 [employer] Patient Education ? 2020 [employer] Orthopedics Cubital Tunnel Syndrome Cubital tunnel syndrome [...] will see him on an as-needed basis. [employer] Other 11-10-2021 Evaluation note* Encounter Date Diagnosis [...] They understand and would like to proceed [employer] Other 09-27-2021 Note [id number]05-23-2021 NoteEducation Materials Orthopedics Wrist Sprain, [...] health care provider. General instructions ? Take klde-cmc-mumzncx and prescription medicines only as told by [...] provider. Document Revised: 10/09/2018 Document Reviewed: 05/15/2017 [employer] Patient Education ? 2019 [employer] Wrist and Forearm Exercises Ask your [...] (more content not included)...[facility] noteNo InformationNortTrinity Health [employer] Other evaluation noteNo assessment information available [facility] Work Phone: Evaluation note* Diagnosis Balance problems- Primary Abnormality of gait Hyper reflexia Abnormal reflex Lightheadedness Dizziness and giddiness Lumbar back pain Lumbago GIRMA (obstructive sleep apnea) Obstructive sleep apnea (adult) (pediatric) Memory change Memory loss documented in this encounter [facility]* Diagnosis Benign localized prostatic hyperplasia with lower urinary tract symptoms (LUTS)- Primary Benign localized prostatic hyperplasia with lower urinary tract symptoms (LUTS)- Primary [facility] Diagnosis Benign localized prostatic hyperplasia with lower urinary tract symptoms (LUTS)- Primary [facility] Diagnosis Radiculopathy, cervical region- Primary Brachial neuritis or radiculitis nos Memory change Memory loss GIRMA (obstructive sleep apnea) Obstructive sleep apnea (adult) (pediatric) Balance problems Abnormality of gait documented in this encounter [facility]* Diagnosis Lumbosacral radiculopathy- Primary Thoracic or lumbosacral neuritis or radiculitis, unspecified Ulnar neuropathy at elbow of right upper extremity Balance problems Abnormality of gait Memory change Memory loss GIRMA (obstructive sleep apnea) Obstructive sleep apnea (adult) (pediatric) documented in this encounter [facility] HealthcareHistory general Narrative - Reported* Type Description Date Surgical History (R) carpal tunnel release Surgical History (R) Ulnar nerve release Surgical History tonsillectomy Hospitalization History See Above [facility] Other Hospital Discharge instructions Additional Instructions Use [...] Any unusual redness or drainage contact the [facility] Work Phone: InstructionsNot on filedocumented in this encounter [facility] SystemInstructionsNot on filedocumented in this encounter [facility] System[facility]* Attachments The following attachments cannot be sent through Care Everywhere. * Benign prostatic hyperplasia (enlarged prostate) (German) [facility] Purpose Family History Relationship Condition [...] wrist (G56.21) Referral Organization [facility] urosurgery Referring Provider First Name Harvey Referring Provider Last Name Yanet Referring Provider Specialty Neurosurger y Referred Organization [facility] Referred Provider Mani Carpenter Referred Address [address] [place], [place],[address] Referred Provider Specialty Neurology Referral Priority Routine [...] section and content) DATE CREATED AUTHOR 02/16/2022 [facility] DATE CREATED AUTHOR AUTHOR'S ORGANIZ ATION 01/23/2023 [facility] DATE CREATED AUTHOR AUTHOR'S ORGANIZ ATION 03/08/2023 [facility] DATE CREATED AUTHOR AUTHOR'S ORGANIZ ATION 10/18/2023 [facility] DATE CREATED AUTHOR AUTHOR'S ORGANIZ ATION [facility]/02/2025 [facility] DATE CREATED AUTHOR AUTHOR'S ORGANIZ ATION 03/09/2025 [facility] REASON FOR VISIT (unrecogniz ed [...] Status: Active Member Role Status Dates Britt Tremaine , DO Primary Care Provider Active Team Status: Inactive Member Role Status Dates Britt Goodman , DO Primary Care Provider Active Josué Evangelista MD Attending Provider Active Manager Process Excellence Relationship Specialty Start Date End Date Coriejose aBree driscollDO unruly [address] [place] [address] PCP - General Family Medicine 11/10/23 Mani Carpenter MD [address] [place] [address] Referring Physician Neurology 11/10/23 Manager Process Excellence Relationship Specialty Start Date End Date CorieBritt wall DO [address] [place] [address] PCP - General Family Medicine 11/10/23 Mani Carpenter MD [address] [place] [address] Referring Physician Neurology 11/10/23 Manager Process Excellence Relationship Specialty Start Date End Date Services, [facility] [address] [place] PCP - General Family Medicine 05/03/21 Manager Process Excellence Relationship Specialty Start Date End Date Services, [facility] [address] [place] PCP - General Family Medicine 05/03/21 Manager Process Excellence Relationship Specialty Start Date End Date [facility] [address], [place] PCP - General Family Medicine 05/03/21 Manager Process Excellence Relationship Specialty Start Date End Date Britt Goodman DO [address] [place] [address] PCP - General Family Medicine 11/10/23 Mani Carpenter MD [address] [place], [place] [id number] Referring Physician Neurology 11/10/23 Manager Process Excellence Relationship Specialty Start Date End Date Britt Goodman DO [address] [place] [address] PCP - General Family Medicine 11/10/23 Mani Carpenter MD [address] [place] [address] Referring Physician Neurology 11/10/23 Manager Process Excellence Relationship Specialty Start Date End Date Britt Goodman DO [address] [place] [address] PCP - General Family Medicine 11/10/23 Mani Carpenter MD [address] [place] [address] Referring Physician Neurology 11/10/23 Charmaine Castro PA [address] [place], [place] [id number] Physician Audit Spec Neurology 02/01/25 Manager Process Excellence Relationship Specialty Start Date End Date Britt Goodman DO [address] [place] [address] PCP - General Family Medicine 11/10/23 Mani Carpenter MD [address] [place] [address] Referring Physician Neurology 11/10/23 Charmaine Castro PA [address] [place] [address] Physician Audit Spec Neurology 02/01/25 Goals (unrecognized section and content) Goals may [...] BE BASED ON THE PRIMARY CLINICAL RECORDS. [facility]. provides no warranty or guarantee of the accuracy or completeness of information in this document.
== END 2025-03-24 09:50 | disposition home or self-care (01) ==
LOC: MRI 09:49
PROVIDERS: PCP Family Medicine; Visit Provider Anesthesiology
DX: M54.12 Radiculopathy, cervical region (principal); G95.89 Other specified diseases of spinal cord; M50.321 Other cervical disc degeneration at C4-C5 level; M50.33 Other cervical disc degeneration, cervicothoracic region
CPT/HCPCS: 72141

== ENCOUNTER 2025-04-07 11:33 | Outpatient (OUT) | payer MEDICAID, SELFPAY ==
--- OUTSIDE RECORDS SUMMARY | 2024-06-29 06:30 | XMS_ITS ---
Author Organization [facility] vices Address [address] [place] [id number] Care Team Providers Care Pattern Cutter Name Role Phone Kenisha Baxter Primary Care Provider [phone] Britt Goodman [phone] REASON FOR VISIT GERD & Hyperlipidemia Social History Sex Assigned At : Social History Observation Description Sex Assigned At Male Encounters Encounter Location Date Provider Diagnosis Main [address] [place] [id number] 06/29/2024 Britt Goodman Plan Of Treatment Next Appt Details Provider Name:Kenisha chung, 04/11/2025 03:45:00 PM, [address] [place], [place], [phone], Progress Notes * Homer EASTMANDOB:[birth year] (59 yo M)Acc No.[id number]:06/29/2024 Medical Note Patient: Homer SALVADOR Provider: Daniel Goodman DO :1965 A ge:59 Y S ex:Male Date:06/29/2024 Address:[address] [place], [place] [id number] Pcp:Kenisha Baxter Subjective: * Chief Complaints: * 1 . GERD & Hyperlipidemia. * Medical History: Objective: * Vitals: Assessment: Plan: * Treatment: * Billing Information: * Visit Code: * Procedure Codes: * Electronic signature of Kimberli Goodman DO on 04/07/2025 at 11:36 AM EDT Sign off status: Pending * Provider: Daniel Goodman DO Date: 0 06/29/2024 Generated for Prakash skaggs/Joann/Anneliese on: 0 04/07/2025 11:36 AM EDT
--- OUTSIDE RECORDS SUMMARY | 2025-04-07 11:36 | XMS_ITS | Clinical Summary ---
Author Organization [facility] s tem Address [id number] [address] [place] [address] Care Team Providers Care Electric Power Line Examiner Name Role Phone Services, [facility] Primary Care Provider Allergies Active Allergy Reactions Criticality Noted Date Comments Bee Venom Protein (Honey Bee) 2020 swelling Penicillins 05/07/2017 Passed out Medications naproxen (NAPROSYN) 500 mg tablet take 1 tablet by mouth twice a day if needed for pain for 14 days 0 04/21/2017 Active latanoprost (XALATAN) 0.005 % ophthalmic solution place 1 drop into both eyes every evening as directed 08/01/2022 Active rosuvastatin (CRESTOR) 5 mg tablet Take 1 tablet (5 mg total) by mouth in the morning. 08/29/2022 Active cyclobenzaprine (FLEXERIL) 5 mg tablet Take 1 tablet (5 mg total) by mouth once daily at bedtime. 12/02/2023 Active Active Problems Problem Noted Date Diagnosed Date Benign localized prostatic h yperplasia with lower urinary tract symptoms (LUTS) 09/10/2022 Overview (12/14/2024): His urinary symptoms have remained stable. PSA normal. He was going to continue to get this is part of his wellness examine returned to see me if symptoms progress Assessment & Plan (10/23/2022 10:04 AM EST): To call if he changes his mind regarding trying an alternative medication Family History Medical History Relation Name Comments Diabetes Father Heart disease Father Prostate cancer Maternal Grandfather Heart disease Mother Hyperlipidemia Mother Cancer Sister Relation Name Status Comments Father Maternal Grandfather Mother Sister Social History Tobacco Use Types Packs/Day Years Used Date Smoking Tobacco: Every Day Smokeless Tobacco: Never Tobacco Cessation:Ready to Q uit: Not Asked; Counseling Given: Not Answered Alcohol Use Standard Drinks/Week Comments Yes 0 (1 standard drink = 0.6 oz pur e alcohol) OCCASIONAL Childcare Answer Date Recorded Childcare Unknown 04/21/2019 Employment Answer Date Recorded Employment Unknown 04/21/2019 Hunger Screening Answer Date Recorded Within the past 12 months we worried whether our food would run out before we got money to buy more. Never True 12/14/2024 Within the past 12 months th e food we bought just didn't last and we didn't have money to get more. Never True 12/14/2024 Purpose - Life Answer Date Recorded Purpose and direction in life Unknown Sex and Gender Information Value Date Recorded Sex Assigned at Not on file Legal Sex Male 12:13 AM EDT Gender Identity Not on file Sexual Orientation Not on file Last Filed Vital Signs Vital Sign Reading Time Taken Comments Blood Pressure 136/78 12/14/2024 2:15 PM EST Pulse 91 12/14/2024 2:15 PM EST Temperature 36.7 C (98 F) 05/03/2021 7:47 AM EDT Respiratory Rate 20 05/03/2021 10:38 AM EDT Oxygen Saturation 97% 05/03/2021 10:38 AM EDT Inhaled Oxygen Concentration - - Weight 92.5 kg (204 lb) 12/14/2024 2:15 PM EST Height 172.7 cm (5' 8 ) 12/14/2024 2:15 PM EST Body Mass Index 31.02 12/14/2024 2:15 PM EST Plan of Treatment Health Maintenance Due Date Last Done Comments Tobacco Counseling 1967 Depression Screening 1979 Adult BMI Follow Up Plan 1985 DTaP,Tdap and Td Vaccines (1 - Tdap) 1986 Zoster (Shingles) Vaccine (1 of 2) 2017 COVID-19 Vaccine (3 - season) 2024, 02/14/2021 Influenza Vaccine 07/11/2025 Adult BMI Screening 12/14/2025 12/14/2024 Tobacco Screening 12/14/2025 12/14/2024 Medical Devices Not on file Insurance [address] [place] [address] [facility] MEDICAID Care Teams Electric Power Line Examiner Relationship Specialty Start Date End Date Services, [facility] [address] [place], [place] PCP - General Family Medicine 05/03/21
--- OUTSIDE RECORDS SUMMARY | 2025-04-07 11:36 | XMS_ITS | Encounter Summary ---
Author Organization [facility] Address [address] [facility] [place] [address] Care Team Providers Care Clinical Documentation Improvement Specialist Name Role Phone NicolaBritt sepulveda Primary Care Provider [phone] Jonn Singer MD Unavailable Unavailable Charmaine Castro Unavailable Reason for Visit * Reason Comments Med Refill Encounter Details Date Type Department Care Team ([facility] Contact Info) Description 04/07/2025 Refill SAMANTHA EALR [address] [place] [phone] Charmaine Castro PA [address] [place] [address] Radiculopathy, cervical region Social History Tobacco Use Types Packs/Day Years Used Date Smoking Tobacco: Every Day Cigarettes Smokeless Tobacco: Current Alcohol Use Standard Drinks/Week Comments Yes 0 (1 standard drink = 0.6 oz pur e alcohol) AUDIT-C Answer Date Recorded Q1: How often do you have a drink containing alc ohol? Monthly or less 04/23/2024 Q2: How many drinks containi ng alcohol do you have on a typical day when you are drinking? 1 or 2 04/23/2024 Q3: How often do you have si x or more drinks on one occasion? Less than monthly 04/23/2024 Sex and Gender Information Value Date Recorded Sex Assigned at Not on file Legal Sex Male 8:00 PM EDT Gender Identity Not on file Sexual Orientation Not on file documented as of this encounter Plan of Treatment Upcoming Encounters Date Type Department Care Team ([facility] Contact Info) Description 06/09/2025 11:20 AM EDT Office Visit SAMANTHA ELLIOTT [address] [place] [phone] Charmaine Ackerman, JOZEF [address], [place] documented as of this encounter Visit Diagnoses Diagnosis Radiculopathy, cervical region Brachial neuritis or radiculitis nos documented in this encounter Care Teams Clinical Documentation Improvement Specialist Relationship Specialty Start Date End Date Britt Goodman DO [address] [facility] [place], [place] [phone] PCP - General Family Medicine 11/10/23 Jonn Singer MD [address] [place] [address] Referring Physician Neurology 11/10/23 Charmaine Castro PA [address] [place] [address] Physician Software Engineer Intern Neurology 02/01/25 documented as of this encounter
--- OUTSIDE RECORDS SUMMARY | 2025-04-07 11:36 | XMS_ITS | Clinical Summary ---
Author Organization [facility] Address [address] [place] [address] Care Team Providers Care Engraver Lettering Name Role Phone GildaBritt driscoll Primary Care Provider [phone] Jonn Singer MD Unavailable Unavailable Charmaine Castro Unavailable Allergies Active Allergy Reactions Criticality Noted Date Comments Bee Venom 12/28/2024 Penicillins 04/22/2024 Medications gabapentin (Neurontin) 100 MG capsule Take 200 mg by mouth in the morning and 200 mg before bedtime. Active rosuvastatin (Crestor) 10 MG tablet Take 10 mg by mouth Daily Active omeprazole (PriLOSEC) [address] capsule Take 40 mg by mouth in the morning. Take before meals. Do not crush or chew. Active latanoprost (Xalatan) 0.005 % ophthalmic solution Administer 1 drop into both eyes at bedtime Active meclizine (Antivert) 25 MG tablet Take 25 mg by mouth as needed in the morning and 25 mg as needed at noon and 25 mg as needed in the evening for dizziness. Active cyclobenzaprine (Flexeril) 5 MG tabletIndication s:Radiculopathy, cervical region TAKE 2 TABLETS BY MOUTH AT BEDTIME 30 tablet 1 03/16/20 25 Active diclofenac (Voltaren) 25 MG EC tabletIndication s:Lumbosacral radiculopathy Take 1 tablet (25 mg) by mouth in the morning and 1 tablet (25 mg) before bedtime. Do not crush, chew, or split. 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 His symptoms are exacerbated when he is not compliant with CPAP. He also has mild depression and anxiety and chronic back pain that likely exacerbated his baseline struggles. 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 He does work midnights. MOCA 01/28/2023: 22 (MOCA 06/19/2022: ). Memory labwork 06/2022 unremarkable. During split night study, patient have GIRMA as well as mixed and central apnea. He has been started on CPAP and has improved his compliance. GIRMA (obstructive sleep apnea) 04/23/2024 Overview (04/23/2024): Treated with CPAP. 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 Paresthesia 04/23/2024 Overview (04/23/2024): NEW: Patient with paresthesia to lower extremities bilaterally ongoing for over a year. PCP started patient on gabapentin for symptom management. Will obtain a BLE EMG to assess for peripheral nerve process that may be contributing to symptoms Mild intellectual disability 04/23/2024 Other chronic pain 04/23/2024 Encounters Date Type Department Care Team Description 04/07/2025 Refill SAMANTHA ELLIOTT [address] [place] [phone] Charmaine aCstro PA Radiculopathy, cervical region 03/23/2025 1:00 PM EDT Office Visit SAMANTHA ELLIOTT [address] [phone] Charmaine Castro PA Lumbosacral radiculopathy (Primary Dx); Ulnar neuropathy at elbow of right upper extremity; Balance problems; Memory change; GIRMA (obstructive sleep apnea) 03/23/2025 Bamboo flowsheet [place] [address] [phone] Charmaine Castro PA 03/20/2025 Travel 03/16/2025 Refill [place] [address] [phone] Charmaine Castro PA Radiculopathy, cervical region 02/01/2025 12:40 PM EDT Office Visit SAMANTHA EARL [address] [phone] Charmaine Castro PA Ulnar neuropathy at elbow of right upper extremity (Primary Dx); Carpal tunnel syndrome of right wrist; GIRMA (obstructive sleep apnea); Balance problems 02/01/2025 Refill [place] [address] [phone] Charmaine Castro PA Radiculopathy, cervical region 02/01/2025 Bamboo flowsheet [place] [address] [phone] Charmaine Castro PA 01/25/2025 11:00 AM EDT Procedure Visit [place] [address] [phone] Jonn Singer MD Carpal tunnel syndrome of right wrist (Primary Dx); Radiculopathy, cervical region; Ulnar neuropathy at elbow of right upper extremity 01/25/2025 Bamboo flowsheet [facility] [address] [phone] Jonn Singer MD from Last 3 Months Family History Medical History Relation Name Comments Depression Father Diabetes Father Heart disease Father Hyperlipidemia Father Hypertension Father Depression Mother Heart disease Mother Hyperlipidemia Mother Hypertension Mother Asthma Sibling Cancer Sibling Depression Sibling Hyperlipidemia Sibling Hypertension Sibling Relation Name Status Comments Father Mother Sibling Social History Tobacco Use Types Packs/Day Years [...] Sign Reading Time Taken Comments Blood Pressure 130/86 03/23/2025 1:13 PM EDT Pulse 59 09/06/2024 1:16 PM EDT Temperature - - Respiratory Rate 16 09/06/2024 1:16 PM EDT Oxygen Saturation 99% 09/06/2024 1:16 PM EDT Inhaled Oxygen Concentration - - Weight 92.5 kg (204 lb) 03/23/2025 1:13 PM EDT Height 172.7 cm (5' 8 ) 03/23/2025 1:13 PM EDT Body Mass Index 31.02 03/23/2025 1:13 PM EDT Plan of Treatment Upcoming Encounters Date Type Department Care Team (Late st Contact Info) Description 06/09/2025 11:20 AM EDT Office Visit SAMANTHA ELLIOTT [address] [place] [phone] Charmaine Ackerman NP [address] [place] [address] Health Maintenance Due Date Last Done Comments CT Colonography 1967 Colonoscopy 1967 Colorectal Cancer Screening 1967 FIT-DNA 1967 FIT 1967 FOBT 1967 Sigmoidoscopy 1967 Influenza Vaccine (Season Ended) 2025 12/08/19 21 Procedures Procedure Name Priority Date/Time Associated Diagnosis Comments [facility] EMG 2 EXTREMITIES Routine 01/25/2025 2:47 PM EDT Radiculopathy, cervical region [facility] AM[facility] NCV 11-12 NERVES Routine 01/25/2025 2:47 PM EDT Radiculopathy, cervical region Carpal tunnel syndrome of right wrist Ulnar neuropathy at elbow of right upper extremity from Last 3 Months Results * EMG 2 Extremities (01/25/2025 2:47 PM EDT) us Charmaine PUENTES NEUROLOGY ORDERABLES Final Resul t * NVC 11-12 Nerves (01/25/2025 2:47 PM EDT) us Jonn Singer MD NEUROLOGY ORDERABLES Final Re sult from Last 3 Months Insurance [employer] MEDICAID [place] Care Teams Engraver Lettering Relationship Specialty Start Date End Date Britt Goodman DO [address] [place] [address] PCP - General Family Medicine 11/10/23 Jonn Singer MD [address] [place] [address] Referring Physician Neurology 11/10/23 Charmaine Castro PA [address] [place] [address] Physician Waredresser Neurology 02/01/25
--- OUTSIDE RECORDS SUMMARY | 2025-04-07 11:36 | XMS_ITS | Clinical Summary ---
Author Organization [facility] Address [address] [place] [address] Care Team Providers Care Health Advocate Name Role Phone NicolaBritt sepulveda DO Primary Care Provider [phone] Allergies Active Allergy Reactions Criticality Noted Date Comments Bee Venom 05/03/2021 swelling Penicillins 05/07/2017 Passed out Medications latanoprost (XALATAN) 0.005 % ophthalmic solution Place 1 drop into both eyes daily 10/08/2023 Active omeprazole (PRILOSEC) 40 MG delayed release capsule Take 1 capsule by mouth daily 10/08/2023 Active rosuvastatin (CRESTOR) 5 MG tablet Take 1 tablet by mouth daily Active Active Problems Problem Noted Date Diagnosed Date Benign localized prostatic h yperplasia with lower urinary tract symptoms (LUTS) 09/10/2022 Overview (10/14/2023): 09/10/22: Progressive lower urinary tract symptoms mostly with overactive bladder. Plan to check PSA, trial VESIcare 5 mg, recheck PVR 10/23/22: PSA 0.61. Discontinued VESIcare after he developed some RLQ pain. Not interested in trying an alternative. Wants to follow with us for prostate cancer screening Last Assessment & Plan: To call if he changes his mind regarding trying an alternative medication Social History Tobacco Use Types Packs/Day Years Used Date Smoking Tobacco: Every Day Cigarettes Smokeless Tobacco: Never Tobacco Cessation:Ready to Q uit: Not Asked; Counseling Given: Not Answered Interpersonal Safety Domain Source: IP Abuse Scr eening Answer Date Recorded Read-Only, Retired: Physical Abuse Denies 10/15/2023 Read-Only, Retired: Verbal Abuse Denies 10/15/2023 Read-Only, Retired: Emotional abuse Denies 10/15/2023 Read-Only, Retired: Financial Abuse Denies 10/15/2023 Read-Only, Retired: Sexual abuse Denies 10/15/2023 Sex and Gender Information Value Date Recorded Sex Assigned at Not on file Legal Sex Male 10:29 AM EDT Gender Identity Not on file Sexual Orientation Not on file Last Filed Vital Signs Vital Sign Reading Time Taken Comments Blood Pressure 124/65 10/15/2023 10:30 AM EST Pulse 62 10/15/2023 10:30 AM EST Temperature 36.7 C (98 F) 10/15/2023 10:10 AM EST Respiratory Rate 18 10/15/2023 10:30 AM EST Oxygen Saturation 96% 10/15/2023 10:30 AM EST Inhaled Oxygen Concentration - - Weight 97.1 kg (214 lb) 10/15/2023 8:37 AM EST Height 172.7 cm (5' 8 ) 10/15/2023 8:37 AM EST Body Mass Index 32.54 10/15/2023 8:37 AM EST Plan of Treatment Health Maintenance Due Date Last Done Comments Lipids 1977 Depression Screen 1979 HIV screen 1982 Hepatitis C screen 1985 DTaP/Tdap/Td vaccine (1 - Tdap) 1986 Hepatitis B vaccine (1 of 3 - 19+ 3-dose series) 1986 Pneumococcal 50+ years Vacci ne (1 of 2 - PCV) 1986 Colonoscopy 2012 Colorectal Cancer Screen 2012 FIT/FOBT: Average risk 2012 Fecal-DNA (Cologuard): Nathrop ge risk 2012 Sigmoidoscopy/CT colonography 2012 Shingles vaccine (1 of 2) 2017 COVID-19 Vaccine (3 - 2023-2 5 season) 2024 03/07/2021, 02/14/2021 Flu vaccine (Season Ended) 2025 Hepatitis A vaccine Aged Out No longe r eligible based on patient's age to complete this topic Hib vaccine Aged Out No longer eligi ble based on patient's age to complete this topic Meningococcal (ACWY) vaccine Aged Out No longer eligible based on patient's age to complete this topic Meningococcal B vaccine Aged Out No l onger eligible based on patient's age to complete this topic Polio vaccine Aged Out No longer elig ible based on patient's age to complete this topic Insurance [facility] MED[facility] Care Teams Health Advocate Relationship Specialty Start Date End Date Britt Goodman DO [address] [place] [address] PCP - General Family Medicine 08/22/23
--- OUTSIDE RECORDS SUMMARY | 2025-04-07 11:37 | XMS_ITS | CCD ---
Author Organization [facility] Care Team Providers Care Aoc Operations Intelligence Officer Name Role Phone Harvey Holt Unavailable NON STAFF Primary Care Provider UnavailDAPHNEY Sotelo Attending Provider [phone] Rumschlag, DO Britt Primary Care Provider Rumcoco, DO Britt Primary Care Provider MD Josué Evangelista Attending Provider [phone] Rumschlayamila, DO Britt Primary Care Provider MD [...] Britt Primary Care Unavailable Josué Evangelista [facility] Primary Care Unava ilable MITCHELL TRAYLOR Admitting Unavailable MERCEDES ENRIQUEZ Consulting Unavailable MITCHELL TRAYLOR Attending Unavailable MANI HARGROVE Consulting Unavailable MITCHELL TRAYLOR Consulting Unavailable MISC, DR GARCIAS Attending Unavailable MISC, DR GARCIAS Consulting [facility] Primary Care Unava ilable RADHA, DR GARCIAS Admitting Unavailable RUMSCHLAG, BRITT Primary Care Unavailable YVONNE CAMARENA Referring Unavailable YVONNE CAMARENA Referring Unavailable RUMSCHLAG, BRITT Primary Care Unavailable CANDIS RENTERIA Admitting Unavailable CANDIS RENTERIA Attending Unavailable BRITT PENALOZA Primary Care Unavailable Britt Penaloza DO Primary Care Provider Mani Carpenter MD Unavailable [facility] Primary Care Provider Lise RAWLS, Andrius Vytautlaurel Attending Unavailable Giedraitis , Andrius Vytautas Attending Unavailable Giedraitis , Andrius Vytautas Attending Unavailable Giedraitis , Andrius Vytautas Attending Unavailable Giedraitis , Andrius Vytautas Attending Unavailable Giedraadrienne RAWLS, Andrius Vytautas Attending Unavailable Lise RAWLS, Andrius Harjinderytautlaurel Attending Unavailable Enmanuel RAWLS, Mani Unavailable Unavailable Charmaine Adkins Unavailable CHARMAINE CASTRO Attending Unavailable CHARMAINE CASTRO Attending Unavailable CANDIDA SIDHU Attending Unavailable MANI CARPENTER Attending Unavailable CANDIDA SIDHU Attending Unavailable CHARMAINE CASTRO Attending Unavailable Allergies Allergy Classification Reported Allergen(s) Allergy Type Date of Onset Reaction(s) Facility (7 sources) penicillAMINE Drug Allergy Unknown [facility] Other (7 sources) Bee Sting Drug allergy Unknown [facility] Other (17 sources) Penicillins; Translations: [Penicillins] Allergy to substance 05-07-20 17 Unknown Reaction [facility] (5 sources) venom-honey bee; Translations: [venom-honey bee] Allergy to substance 10-02-20 21 Swelling [facility] (1 source) bee venom Drug allergy (disorder) [facility] (1 source) Penicillin Drug Allergy [facility] (3 sources) Bee Venom Protein (Honey [...] 500 mg chewable tablet (2 sources) Start: 023 take 1 tablet by mouth twice daily [...] Start: 12-27-2024 take 2 tablets by mo [facility] at bedtime cyclobenzaprine (Flexeril) 5 MG tablet [...] (1 source) Histamine-1 Receptor Inhibitor Start: 01-23-20 23 take 1 drop(s) into the eye(s) once [...] post void residualon 12-14-2024 Volume 87 mL [facility] Prostate specific Ag [Mass/V ol]on 12-09-2023 [facility] Prostatic specific antigen, diagnosticon 12-09-2023 Prostate specific Ag [Mass/Vol] 1.02 ng/mL 0.00 - 4.00 ng/mL [facility] Comment on above: The method used for this test is Roxy Eglon DXI chemiluminescent immunoassay. Values obtained by different assay methods cannot be used interchangeably. H. pylori Antigenon 10-16-20 H. pylori Antigen Specimen Description .FECES Direct Exam NEGATIVE Report Status FINAL 10/16/2023 Normal [facility] Comment on above: Performed By: #### F HPY #### [facility] [address] [place], [place] [id number] Utilization Management Manager: Guy Ramey MD [facility] [address] [place] [address] Utilization Management Manager: Justus Darby MD Surgical Pathology Reporton 10-15-2023 Surgical Pathology Report (NOTE) Path Number: [id number] -- Diagnosis -- A. GE junction, endoscopic [...] for each. Microscopic examination performed. Processing Lab: [address] [id number] Interpretation Performed at [address] [id number] SURGICAL PATHOLOGY CONSULTATION Patient Name: ROSA EASTMAN [facility] Rec: [id number] [facility] PATHOLOGISTS [facility] ANATOMIC PATHOLOGY [address] [place] [address]. [place], [place] [address] Normal [facility] CBC with Diffon 10-14-2023 Abs. Basophil 0.17 k/uL Normal 0.00-0.20 [facility] Comment on above: Performed By: #### C DP #### [facility] [address] [place], [place] [id number] Utilization Management Manager: Justus Darby MD Abs.Imm.Granulocyte 0.04 k/uL Normal 0.00-0.30 [facility] Comment on above: Performed By: #### C DP #### [address] [place], [place] [id number] Utilization Management Manager: Justus Darby MD Abs.Neutrophil (Seg) 5.08 k/uL Normal 1.50-8.10 [facility] Comment on above: Performed By: #### C DP #### [address] [place], [place] [id number] Utilization Management Manager: Justus Darby MD Basophils/100 WBC (Bld) 2 % Normal 0-2 [facility] Comment on above: Performed By: #### C DP #### [address] [place] [id number] Utilization Management Manager: Justus Darby MD Eosinophils (Bld) [#/Vol] 0.43 10*3/uL Normal 0.00-0.44 [facility] Comment on above: Performed By: #### C DP #### [address] [place] [address] Utilization Management Manager: Justus Darby MD Eosinophils/100 WBC (Bld) 4 % Normal 1-4 [facility] Comment on above: Performed By: #### C DP #### [address] [place] [facility] Utilization Management Manager: Justus Darby MD Erythrocyte distribution width (RBC) [Ratio] 12.3 % Normal 11.8-14.4 [facility] Comment on above: Performed By: #### C DP #### [facility] [address] [place], [facility] Utilization Management Manager: Justus Darby MD Hematocrit (Bld) [Volume fraction] 44.4 % Normal 40.7-50.3 [facility] Comment on above: Performed By: #### C DP #### [address] [place], [facility] Utilization Management Manager: Justus Darby MD Hemoglobin (Bld) [Mass/Vol] 14.6 g/dL Normal 13.0-17.0 [facility] Comment on above: Performed By: #### C DP #### [facility] [address] [place] [address] Dr. [place], [facility] Utilization Management Manager: Justus Darby MD Immature granulocytes/100 WBC (Bld) 0 % Normal 0 [facility] Comment on above: Performed By: #### C DP #### [facility] [address] [place] [address] Dr. [place], [facility] Utilization Management Manager: Justus Darby MD Lymphocytes (Bld) [#/Vol] 3.86 10*3/uL High 1.10-3.70 [facility] Comment on above: Performed By: #### C DP #### [facility] [address] [place], [facility] Utilization Management Manager: Justus Darby MD Lymphocytes/100 WBC (Bld) 36 % Normal 24-43 [facility] Comment on above: Performed By: #### C DP #### [facility] [address] [place] [address] Dr. [place], [facility] Utilization Management Manager: Justus Darby MD MCH (RBC) [Entitic mass] 30.9 pg Normal 25.2-33.5 [facility] Comment on above: Performed By: #### C DP #### [facility] [address] [place] [address] Dr. [place], [place] [address] Utilization Management Manager: Justus Darby MD MCHC (RBC) [Mass/Vol] 32.9 g/dL Normal 28.4-34.8 [facility] Comment on above: Performed By: #### C DP #### [address] [place], [facility] Utilization Management Manager: Justus Darby MD MCV (RBC) [Entitic vol] 93.9 fL Normal 82.6-102.9 [facility] Comment on above: Performed By: #### C DP #### [address] [place], [facility] Utilization Management Manager: Justus Darby MD Monocytes (Bld) [#/Vol] 1.05 10*3/uL Normal 0.10-1.20 [facility] Comment on above: Performed By: #### C DP #### [address] [place], [facility] Utilization Management Manager: Justus Darby MD Monocytes/100 WBC (Bld) 10 % Normal 3-12 [facility] Comment on above: Performed By: #### C DP #### [facility] [address] [place] [address] Dr. [place], [place] [address] Utilization Management Manager: Justus Darby MD Neutrophil (Seg) 48 % Normal 36-65 [facility] Comment on above: Performed By: #### C DP #### [facility] [address] [place], [facility] Utilization Management Manager: Justus Darby MD NRBC Automated 0.0 per 100 WBC Normal 0.0 [facility] Comment on above: Performed By: #### C DP #### [facility] [address] [place] [facility] Utilization Management Manager: Justus Darby MD Platelet mean volume (Bld) [Entitic vol] 9.6 fL Normal 8.1-13.5 [facility] Comment on above: Performed By: #### C DP #### [facility] [address] [place] [address] Utilization Management Manager: Justus Darby MD Platelets (Bld) [#/Vol] 297 10*3/uL Normal 138-453 [facility] Comment on above: Performed By: #### C DP #### [facility] [address] [place], [place] [id number] Utilization Management Manager: Justus Darby MD RBC (Bld) [#/Vol] 4.73 10*6/uL Normal 4.21-5.77 [facility] Comment on above: Performed By: #### C DP #### [facility] [address] [place], [place] [id number] Utilization Management Manager: Justus Darby MD WBC (Bld) [#/Vol] 10.6 10*3/uL Normal 3.5-11.3 [facility] Comment on above: Performed By: #### C DP #### [facility] [address] [place], [place] [id number] Utilization Management Manager: Justus Darby MD Basic Metabolic Panelon 03-0 Anion gap [Moles/Vol] 9.8 mmol/L Normal 6.0-15.0 [facility] Comment on above: Performed By: #### C BC, BMP #### [facility] [address] [place] [address] [facility] Calcium [Mass/Vol] 9.1 mg/dL Normal 8.2-10.2 [facility] Comment on above: Result Comment: PERF ORMED BY: [facility] [address] [place] [address] PATHOLOGIST LEAD SHOP OPERATOR GENEVIEVE CANNON M.D. Performed By: #### C BC, BMP #### [facility] [address] Chloride [Moles/Vol] 104 mmol/L Normal 95-114 [facility] Comment on above: Performed By: #### C BC, BMP #### [facility] [address] CO2 [Moles/Vol] 25.9 mmol/L Normal 22.0-30.0 [facility] Comment on above: Performed By: #### C BC, BMP #### [address] Creatinine [Mass/Vol] 0.98 mg/dL Normal 0.64-1.27 [facility] Comment on above: Performed By: #### C BC, BMP #### [address] Estimated GFR ( Camila > 60 Normal [facility] Comment on above: Result Comment: GFR estimated reference range: According to KDOQI guidelines, <60 ml/min/1.73m2 is sufficient to diagnose a patient with chronic kidney disease. Performed By: #### C BC, BMP #### [place] [address] [place] Estimated GFR (Non- Am > 60 [facility] Comment on above: Performed By: #### C BC, BMP #### [place] [address] [place] Glucose [Mass/Vol] 82 mg/dL Normal 70-100 [facility] Comment on above: Result Comment: [place] Glucose Reference Range is dependent on time and content of last meal. Glucose of more than 200 mg/dL in a nonstressed, ambulatory subject supports the diagnosis of Diabetes Mellitus. ADA recommended reference range Performed By: #### C BC, BMP #### [place] [address] [place] Potassium [Moles/Vol] 3.7 mmol/L Normal 3.5-5.1 [facility] Comment on above: Performed By: #### C BC, BMP #### [place] [address] [place] Sodium [Moles/Vol] 136 mmol/L Normal 136-146 [facility] Comment on above: Performed By: #### C MICHELLE, BMP #### [facility] [address] Urea nitrogen [Mass/Vol] 11 mg/dL Normal 9-23 [facility] Comment on above: Performed By: #### C MICHELLE, BMP #### [facility] [address] Basophils Auto (Bld) [#/Vol] Ordered By: Josué Evangelista on 01-13-2023 Basophils (Bld) [#/Vol] 0.1 10*3/uL 0.0-0.2 [facility] Basophils/100 WBC Auto (Bld) Ordered By: Josué Evangelista on 01-13-2023 Basophils/100 WBC (Bld) 1.2 % . F [facility] Calcium [Mass/volume] in Ser um or PlasmaOrdered By: Josué Evangelista on 01-13-2023 Calcium [Mass/Vol] 9.1 mg/dL 8.2-10.2 [facility] Carbon dioxide, total [Moles /volume] in Serum or PlasmaOrdered By: Josué Evangelista on 01-13-2023 CO2 [Moles/Vol] 25.9 mmol/L 22.0-30.0 [facility] Chloride [Moles/volume] in S lai or PlasmaOrdered By: Josué Evangelista on 01-13-2023 Chloride [Moles/Vol] 104 mmol/L 95-114 [facility] Complete Blood Count Auto Di ffon 01-13-2023 Basophils (Bld) [#/Vol] 0.1 10*3/uL Normal 0.0-0.2 [facility] Comment on above: Result Comment: PERF ORMED BY: [place] [address] PATHOLOGIST LEAD SHOP OPERATOR GENEVIEVE CANNON M.D. Performed By: #### C MICHELLE, BMP #### [facility] [address] Basophils/100 WBC (Bld) 1.2 % Normal . F [facility] Comment on above: Performed By: #### C BC, BMP #### [facility] [address] [place] [address] [place] Eosinophils (Bld) [#/Vol] 0.5 10*3/uL High 0.0-0.45 [facility] Comment on above: Performed By: #### C BC, BMP #### [facility] [address] [place] [address] [place] Eosinophils/100 WBC (Bld) 4.7 % Normal . [facility] Comment on above: Performed By: #### C BC, BMP #### [facility] [address] Erythrocyte distribution width (RBC) [Ratio] 12.6 % Normal 12.0-14.8 [facility] Comment on above: Performed By: #### C BC, BMP #### [facility] [address] Hematocrit (Bld) [Volume fraction] 41.2 % Normal 38.8-50.0 [facility] Comment on above: Performed By: #### C BC, BMP #### [address] Hemoglobin (Bld) [Mass/Vol] 14.1 g/dL Normal 13.0-17.0 [facility] Comment on above: Performed By: #### C BC, BMP #### [facility] [address] [place] [address] [place] Lymphocytes (Bld) [#/Vol] 3.4 10*3/uL Normal 1.00-4.8 [facility] Comment on above: Performed By: #### C BC, BMP #### [facility] [address] [place] [address] [place] Lymphocytes/100 WBC (Bld) 33.3 % Normal . [facility] Comment on above: Performed By: #### C BC, BMP #### [facility] [address] MCH (RBC) [Entitic mass] 31.7 pg Normal 27.5-35.2 [facility] Comment on above: Performed By: #### C BC, BMP #### [facility] [address] MCV (RBC) [Entitic vol] 92.3 fL Normal 83.5-101 F [facility] Comment on above: Performed By: #### C BC, BMP #### [facility] [address] Mean Corpuscular HGB Conc 34.4 g/dL Normal 32.5-35.6 [facility] Comment on above: Performed By: #### C BC, BMP #### [facility] [address] [place] [address] [place] Monocytes (Bld) [#/Vol] 1.0 10*3/uL High 0.0-0.8 [facility] Comment on above: Performed By: #### C BC, BMP #### [facility] [address] [place] [address] [place] Monocytes/100 WBC (Bld) 10.1 % Normal . F [facility] Comment on above: Performed By: #### C BC, BMP #### [facility] [address] [place] [address] [place] Neutrophils (Bld) [#/Vol] 5.2 10*3/uL Normal 1.8-7.7 [facility] Comment on above: Performed By: #### C BC, BMP #### [facility] [address] [place] [address] [place] Neutrophils/100 WBC (Bld) 50.7 % Normal . [facility] Comment on above: Performed By: #### C BC, BMP #### [facility] [address] [place] [address] [place] NRBC% 0.1 /100{WBC} Normal 0-0.5 [facility] Comment on above: Performed By: #### C BC, BMP #### [facility] [address] Platelet mean volume (Bld) [Entitic vol] 7.8 fL Normal 6.6-10.1 [facility] Comment on above: Performed By: #### C BC, BMP #### [facility] [address] Platelets (Bld) [#/Vol] 268 10*3/uL Normal 150-450 [facility] Comment on above: Performed By: #### C BC, BMP #### [facility] [address] RBC (Bld) [#/Vol] 4.46 10*6/uL Normal 3.90-5.[address] [facility] Comment on above: Performed By: #### C BC, BMP #### [facility] [address] WBC (Bld) [#/Vol] 10.3 10*3/uL Normal 4.1-10.[address] [facility] Comment on above: Performed By: #### C BC, BMP #### [facility] [address] Creatinine and Glomerular fi ltration rate.predicted panel (S/P/Bld)Ordered By: Josué Evangelista on 01-13-2023 Creatinine [Mass/Vol] 0.98 mg/dL 0.64-1.27 [facility] ECG 12 lead ECGon 01-13-2023 ECG 12 lead ECG [facility] [place] [address] [place] [address] Electrocardiograph Report Signed Patient: Rosa Eastman MR#: [id number] : [id number] Acct:[id number] Age/Sex: 57 / M ADM Date: 01/13/23 Loc: PS Room: Type: [facility] Attending Dr: Josué Evangelista MD [...] Marylin Eisenberg MD 0 01/14/23 1534 Normal [facility] Eosinophils Auto (Bld) [#/Vo l]Ordered By: Josué Evangelista on 01-13-2023 Eosinophils (Bld) [#/Vol] 0.5 10*3/uL 0.0-0.45 [facility] Eosinophils/100 WBC Auto (Bl d)Ordered By: Josué Evangelista on 01-13-2023 Eosinophils/100 WBC (Bld) 4.7 % . [facility] Erythrocyte distribution wid th Auto (RBC) [Ratio]Ordered By: Josué Evangelista on 01-13-2023 Erythrocyte distribution width (RBC) [Ratio] 12.6 % 12.0-14.8 [facility] Estimated glomerular filtrat ion rate (GFR) non- AmericanOrdered By: Josué Evangelista on 01-13-2023 GFR/1.73 sq M.predicted among non-blacks MDRD (S/P/Bld) [Vol rate/Area] > 60 mL/Min [facility] Glucose [Mass/volume] in Ser um or PlasmaOrdered By: Josué Evangelista on 01-13-2023 Glucose [Mass/Vol] 82 mg/dL 70-100 [facility] Comment on above: ADA recommended refe rence rangeRandom Glucose Reference Range is dependent on time and content of last meal. Glucose of more than 200 mg/dL in a nonstressed, ambulatory subject supports the diagnosis of Diabetes Mellitus. Hematocrit Auto (Bld) [Volum e fraction]Ordered By: Josué Evangelista on 01-13-2023 Hematocrit (Bld) [Volume fraction] 41.2 % 38.8-50.0 [facility] Hemoglobin [Mass/volume] in BloodOrdered By: Josué Evangelista on 01-13-2023 Hemoglobin (Bld) [Mass/Vol] 14.1 g/dL 13.0-17.0 [facility] Leukocytes [#/volume] correc lesly for nucleated erythrocytes in Blood by Automated counOrdered By: Josué Evangelista on 01-13-2023 WBC corrected for nucl RBC Auto (Bld) [#/Vol] 10.3 10*3/uL 4.1-10.5 [facility] Lymphocytes Auto (Bld) [#/Vo l]Ordered By: Josué Evangelista on 01-13-2023 Lymphocytes (Bld) [#/Vol] 3.4 10*3/uL 1.00-4.8 [facility] Lymphocytes/100 WBC Auto (Bl d)Ordered By: Josué Evangelista on 01-13-2023 Lymphocytes/100 WBC (Bld) 33.3 % . [facility] MCH Auto (RBC) [Entitic mass ]Ordered By: Josué Evangelista on 01-13-2023 MCH (RBC) [Entitic mass] 31.7 pg 27.5-35.2 [facility] MCHC Auto (RBC) [Mass/Vol]Or dered By: Josué Evangelista on 01-13-2023 MCHC (RBC) [Mass/Vol] 34.4 g/dL 32.5-35.6 [facility] MCV Auto (RBC) [Entitic vol] Ordered By: Josué Evangelista on 01-13-2023 MCV (RBC) [Entitic vol] 92.3 fL 83.5-101 F [facility] Monocytes Auto (Bld) [#/Vol] Ordered By: Josué Evangelista on 01-13-2023 Monocytes (Bld) [#/Vol] 1.0 10*3/uL 0.0-0.8 [facility] Monocytes/100 WBC Auto (Bld) Ordered By: Josué Evangelista on 01-13-2023 Monocytes/100 WBC (Bld) 10.1 % . F [facility] Neutrophils Auto (Bld) [#/Vo l]Ordered By: Josué Evangelista on 01-13-2023 Neutrophils (Bld) [#/Vol] 5.2 10*3/uL 1.8-7.7 [facility] Neutrophils/100 WBC Auto (Bl d)Ordered By: Josué Evangelista on 01-13-2023 Neutrophils/100 WBC (Bld) 50.7 % . [facility] No Panel InformationOrdered By: Josué Evangelista on 01-13-2023 Estimated GFR () > 60 mL/Min [facility] Comment on above: GFR estimated refere nce range: According to KDOQI guidelines, <60 ml/min/1.73m2 is sufficient to diagnose a patient with chronic kidney disease. Pharmacy Creatinine Clearance (Chem N/A [facility] Nucleated erythrocytes [Pres ence] in Blood by Automated countOrdered By: Josué Evangelista on 01-13-2023 Nucleated RBC Auto Ql (Bld) 0.1 /100{WBC} 0-0.5 [facility] Platelet mean volume Auto (B ld) [Entitic vol]Ordered By: Josué Evangelista on 01-13-2023 Platelet mean volume (Bld) [Entitic vol] 7.8 fL 6.6-10.1 [facility] Platelets Auto (Bld) [#/Vol] Ordered By: Josué Evangelista on 01-13-2023 Platelets (Bld) [#/Vol] 268 10*3/uL 150-450 [facility] Potassium [Moles/volume] in Serum or PlasmaOrdered By: Josué Evangelista on 01-13-2023 Potassium [Moles/Vol] 3.7 mmol/L 3.5-5.1 [facility] RBC Auto (Bld) [#/Vol]Ordere d By: Josué Evangelista on 01-13-2023 RBC (Bld) [#/Vol] 4.46 10*6/uL 3.90-5.[address] [facility] Serum or plasma anion gap de terminationOrdered By: Josué Evangelista on 01-13-2023 Anion gap [Moles/Vol] 9.8 mmol/L 6.0-15.0 [facility] Sodium [Moles/volume] in Ser um or PlasmaOrdered By: Josué Evangelista on 01-13-2023 Sodium [Moles/Vol] 136 mmol/L 136-146 [facility] Urea nitrogen [Mass/volume] in Serum or PlasmaOrdered By: Josué Evangelista on 01-13-2023 Urea nitrogen [Mass/Vol] 11 mg/dL 9-23 [facility] WBC Auto (Bld) [#/Vol]Ordere d By: Josué Evangelista on 01-13-2023 WBC (Bld) [#/Vol] 10.3 10*3/uL 4.1-10.5 [facility] XR cerv spine AP/LAT/FLX/EXT on 12-06-2022 XR cerv spine AP/LAT/FLX/EXT [facility] [place] [address] [place] [address] XRay Report Signed Patient: Rosa Eastman MR#: [id number] : 1965 Acct:[id number] Age/Sex: 57 / M ADM Date: 12/06/22 Loc: XD Room: Type: [facility] Attending Dr: Josué Evangelista MD Copies [...] Erasmo Maddox M.D.12/06/2022 2:26 PM Dictation Location: [place] [address] Transcribed By: [facility] 12/06/221425 Dictated By: Erasmo Maddox DO 12/06/221421 Signed By: 12/06/22 142 Normal [facility] CBC AUTO DIFFon 08-10-2022 BASO # 0.2 103/ul Critically high 0.0-0.1 [facility] Comment on above: Performed By: #### C BC #### [facility] [address] [address] [address] Mars Sanders Basophils/100 WBC (Bld) 2.0 % Normal 0.2-2.0 [facility] Comment on above: Performed By: #### C BC #### [facility] [address] [address] [address] Mars Sanders EO # 0.5 103/ul Normal 0.0-0.7 [facility] Comment on above: Performed By: #### C BC #### [facility] [address] [address] [address] Mars Sanders Eosinophils/100 WBC (Bld) 5.7 % Normal 0.9-7.0 [facility] Comment on above: Performed By: #### C BC #### [facility] [address] [place] [address] Dr. Mars Sanders Erythrocyte distribution width (RBC) [Ratio] 12.4 % Normal 11.0-15.0 [facility] Comment on above: Performed By: #### C BC #### [facility] [address] [place] [address] Dr. Mars Sanders Hematocrit (Bld) [Volume fraction] 41.8 % Critically low 42.0-54.0 [facility] Comment on above: Performed By: #### C BC #### [facility] [address] [place] [address] Dr. Mars Sanders Hemoglobin (Bld) [Mass/Vol] 14.0 g/dL Normal 14.0-18.0 [facility] Comment on above: Performed By: #### C BC #### [facility] [address] [place] [address] Dr. Mars Sanders IG # 0.02 10e3/ul Normal 0.00-0.03 [facility] Comment on above: Performed By: #### C BC #### [facility] [address] [place] [address] Dr. Mars Sanders IG % 0.2 % Normal 0.0-0.5 [facility] Comment on above: Performed By: #### C BC #### [facility] [address] [place] [address] Dr. Mars Sanders LYMPH # 3.1 103/ul Normal 1.2-3.8 [facility] Comment on above: Performed By: #### C BC #### [facility] [address] [place] [address] Dr. Mars Sanders Lymphocytes/100 WBC (Bld) 36.3 % Normal 20.5-60.0 [facility] Comment on above: Performed By: #### C BC #### [facility] [address] [place] [address] Dr. Mars Sanders MANUAL DIFF REQ NO Normal [facility] Comment on above: Performed By: #### C BC #### [facility] [address] [place] [address] Dr. Mars Sanders MCH (RBC) [Entitic mass] 31.4 pg Normal 25.9-34.0 [facility] Comment on above: Performed By: #### C BC #### [facility] [address] [place] [address] Dr. Mars Sanders MCHC (RBC) [Mass/Vol] 33.5 g/dL Normal 29.9-35.2 [facility] Comment on above: Performed By: #### C BC #### [facility] [address] [place] [address] Dr. Mars Sanders MCV (RBC) [Entitic vol] 93.7 fL Normal 80.0-94.0 [facility] Comment on above: Performed By: #### C BC #### [facility] [address] [place] [address] Dr. Mars Sanders MONO # 0.8 103/ul Normal 0.3-0.8 [facility] Comment on above: Performed By: #### C BC #### [facility] [address] [place] [address] Dr. Mars Sanders Monocytes/100 WBC (Bld) 10.0 % Normal 1.7-12.0 [facility] Comment on above: Performed By: #### C BC #### [facility] [address] [address] [address] Mars Sanders NEUT # 3.9 103/ul Normal 1.4-6.5 [facility] Comment on above: Performed By: #### C BC #### [facility] [address] [address] [address] Mars Sanders Neutrophils/100 WBC (Bld) 45.8 % Normal 43.0-75.0 [facility] Comment on above: Performed By: #### C BC #### [facility] [address] [address] [address] Mars Sanders Platelet mean volume (Bld) [Entitic vol] 9.4 fL Critically low 9.5-13.5 [facility] Comment on above: Performed By: #### C BC #### [facility] [address] [place] [address] Dr. Mars Sanders PLT 251 103/ul Normal 150-450 [facility] Comment on above: Performed By: #### C BC #### [facility] [address] [place] [address] Dr. Mars Sanders RBC 4.46 106/ul Critically low 4.70-6.10 [facility] Comment on above: Performed By: #### C BC #### [facility] [address] [place] [address] Dr. Mars Sanders WBC 8.4 103/ul Normal 4.0-11.0 [facility] Comment on above: Performed By: #### C BC #### [facility] [address] [place] [address] Dr. Mars Sanders D-DIMERon 08-10-2022 D-DIMER 0.35 mg/L FEU Normal <=0.59 [facility] Comment on above: Performed By: #### D DIM #### [facility] [address] [place] [address] Dr. Mars Sanders D-DIMER COMMENTS SEE BELOW Normal [facility] Comment on above: Result Comment: Incr [...] hospitalization. Performed By: #### D DIM #### [facility] [address] [place] [address] Dr. Mars Sanders PROF 14(COMP METB)on 022 Albumin [Mass/Vol] 3.8 g/dL Normal 3.4-5.0 [facility] Comment on above: Performed By: #### H ALESSIO, CMP #### [facility] [address] [place] [address] Dr. Mars Sanders Albumin/Globulin [Mass ratio] 1.0 {ratio} Normal [facility] Comment on above: Performed By: #### H ALESSIO, CMP #### [facility] [address] [place] [address] Dr. Mars Sanders ALP [Catalytic activity/Vol] 127 U/L Critically high 46-116 [facility] Comment on above: Performed By: #### H ALESSIO, CMP #### [facility] [address] [place] [address] Dr. Mars Sanders ALT [Catalytic activity/Vol] 30 U/L Normal 16-63 [facility] Comment on above: Performed By: #### H ALESSIO, CMP #### [facility] [address] [place] [address] Dr. Mars Sanders Anion gap [Moles/Vol] 13.5 mmol/L Normal [facility] Comment on above: Performed By: #### H ALESSIO, CMP #### [facility] [address] [place] [address] Dr. Mars Sanders AST [Catalytic activity/Vol] 20 U/L Normal 15-37 [facility] Comment on above: Performed By: #### H ALESSIO, CMP #### [facility] [address] [place] [address] Dr. Mars Sanders Bilirubin [Mass/Vol] 0.3 mg/dL Normal 0.2-1.0 [facility] Comment on above: Performed By: #### H STROPN, CMP #### [facility] [address] [place] [address] Dr. Mars Sanders Calcium [Mass/Vol] 8.7 mg/dL Normal 8.5-10.1 [facility] Comment on above: Performed By: #### H STROPN, CMP #### [facility] [address] [place] [address] Dr. Mars Sanders Chloride [Moles/Vol] 105 mmol/L Normal 98-107 [facility] Comment on above: Performed By: #### H STROPN, CMP #### [facility] [address] [place] [address] Dr. Mars Sanders CO2 [Moles/Vol] 25.4 mmol/L Normal 21.0-32.0 [facility] Comment on above: Performed By: #### H STROPN, CMP #### [facility] [address] [place] [address] Dr. Mars Sanders Creatinine [Mass/Vol] 0.98 mg/dL Normal 0.70-1.30 [facility] Comment on above: Performed By: #### H STROPN, CMP #### [facility] [address] [place] [address] Dr. Mars Sanders EGFR-AF SIERRA LEONEAN >60 Normal >=60 [facility] Comment on above: Performed By: #### H STROPN, CMP #### [facility] [address] [place] [address] Dr. Mars Sanders EGFR-NON AF SIERRA LEONEAN >60 Normal >=60 [facility] Comment on above: Performed By: #### H STROPN, CMP #### [facility] [address] [place] [address] Dr. Mars Sanders Globulin (S) [Mass/Vol] 3.9 g/dL Normal [facility] Comment on above: Performed By: #### H STROPN, CMP #### [facility] [address] [place] [address] Dr. Mars Sanders Glucose [Mass/Vol] 102 mg/dL Normal 74-106 [facility] Comment on above: Performed By: #### H ALESSIO, CMP #### [facility] [address] [address] [address] Mars Sanders Potassium [Moles/Vol] 3.9 mmol/L Normal 3.5-5.1 [facility] Comment on above: Performed By: #### H ALESSIO, CMP #### [facility] [address] [address] [address] Mars Sanders Protein [Mass/Vol] 7.7 g/dL Normal 6.4-8.2 [facility] Comment on above: Performed By: #### H ALESSIO, CMP #### [facility] [address] [place] [address] Dr. Mars Sanders Sodium [Moles/Vol] 140 mmol/L Normal 136-145 [facility] Comment on above: Performed By: #### H ALESSIO, CMP #### [facility] [address] [place] [address] Dr. Mars Sanders Urea nitrogen [Mass/Vol] 14.0 mg/dL Normal 7.0-18.0 [facility] Comment on above: Performed By: #### H ALESSIO, CMP #### [facility] [address] [place] [address] Dr. Mars Sanders Urea nitrogen/Creatinine [Mass ratio] 14.3 mg/mg Normal [facility] Comment on above: Performed By: #### H ALESSIO, CMP #### [facility] [address] [place] [address] Dr. Mars Sanders PROTIMEon 08-10-2022 INR Coag (PPP) [Relative time] 0.95 {INR} Normal [facility] Comment on above: Performed By: #### P T, PTT #### [facility] [address] [place] [address] Dr. Mars Sanders INR GUIDELINES SEE BELOW Normal [facility] Comment on above: Result Comment: EDU RED INR: 2.0 - 3.0 CONDITIONS NOT LISTED BELOW 2.5 - 3.5 FOR PROSTHETIC HEART VALVE REPLACEMENT 2.5 - 3.5 RECURRENT THROMBOSIS Performed By: #### P T, PTT #### [facility] [address] [address] [address] Mars Sanders PT Coag (PPP) [Time] 10.3 s Normal 9.0-11.6 [facility] Comment on above: Performed By: #### P T, PTT #### [facility] [address] [address] [address] Mars Sanders PTTon 08-10-2022 aPTT Coag (Bld) [Time] 29.9 s Normal 22.3-36.2 [facility] Comment on above: Performed By: #### P T, PTT #### [facility] [address] [place] [address] Dr. Mars Sanders TROPONIN, HIGH SENSITIVITYon 08-10-2022 HSTROP 12.3 pg/mL Normal 4.0-76.1 [facility] Comment on above: Result Comment: CUT- OFF POINTS HAVE BEEN ESTABLISHED BASED ON THE FOURTH UNIVERSAL DEFINITIONS OF MYOCARDIAL INFARCTION. THE UPPER REFERENCE LIMIT (URL) OF TROPONIN, DEFINED THE 99TH PERCENTILE OF cTnI DISTRIBUTION IN A REFERENCE POPULATION, HAS BEEN CONFIRMED THE DECISION THRESHOLD FOR [place] DIAGNOSIS. Performed By: #### H STROPN, CMP #### [facility] [address] [place] [address] Dr. Mars Sanders XR CHEST 1 Von [...] MANI HARGROVE Date: 2022-08-10 18:59 Normal [facility] MR head/brain wo conon 07-08 MR head/brain wo [facility] [place] [address] MRI Report Signed Patient: Rosa Eastman MR#: [id number] : 1965 Acct:[id number] Age/Sex: 57 / M ADM Date: 07/08/22 Loc: [facility] Room: Type: [facility] Attending Dr: Candida Alexander PA-C Copies [...] Rob Funez M.D.07/08/2022 1:37 PM Dictation Location: [place] [address] Transcribed By: [facility] 07/08/22 8352 Dictated By: Rob Funez II, MD 07/08/22 8552 Signed By: 07/08/22 1334 [facility] Folate [Mass/volume] in Seru m or PlasmaOrdered By: Candida Alexander on 06-21-2022 Folate [Mass/Vol] 7.4 ng/mL >5.9 [facility] Comment on above: Folate reference ran ge: >5.9 ng/ml The WHO technical consultation on folate and vitamin b12 deficiencies has determined that folate concentrations less than 4 ng/ml are considered deficient. Free T4 (Free Thyroxine)on 0 06-21-2022 Free T4 [Mass/Vol] 0.77 ng/dL Normal 0.61-1.12 [facility] Comment on above: Performed By: #### V [id number], T4F, TSH3 #### [facility] [address] [place] [address] [place] #### METH #### [facility] , Laboratory - Chemistry and C hemistry - challengeOrdered By: Candida Alexander on 06-21-2022 Cobalamin (Vitamin B12) [Mass/Vol] 369 pg/mL 180-914 [facility] Methylmalonic Acidon 022 Methylmalonic Acid 241 Normal 0-378 [facility] Comment on above: Result Comment: This test was developed and its performance characteristics determined by [facility]. It has not been cleared or approved by the Food and Drug Administration. Performed at: [facility] [address] [id number] Utilization Management Manager: Millicent Calderon MD, Phone: [phone] PERFORMED BY: [place] [address] PATHOLOGIST LEAD SHOP OPERATOR GENEVIEVE CANNON M.D. Performed By: #### V [id number], T4F, TSH3 #### [address] #### METH #### [facility] , Serum or plasma methylmalona te measurement (moles/volume)Ordered By: Candida Alexander on 06-21-2022 Methylmalonate [Moles/Vol] 241 nmol/L 0-378 [facility] Comment on above: This test was develo ped and its performance characteristics determined by [facility]. It has not been cleared or approved by the Food and Drug Administration. Performed at: [facility] [address] [id number] Utilization Management Manager: Millicent Calderon MD, Phone: [phone] TSH DL <= 0.005 mIU/L QnOrde red By: Candida Alexander on 06-21-2022 TSH Qn 2.46 m[IU]/L 0.45-5.33 [facility] Thyroid Stimulating Hormoneo n 06-21-2022 TSH Qn 2.46 m[IU]/L Normal 0.45-5.33 [facility] Comment on above: Result Comment: PERF ORMED BY: [place] [address] PATHOLOGIST LEAD SHOP OPERATOR GENEVIEVE CANNON M.D. Performed By: #### V [id number], T4F, TSH3 #### [facility] [address] [place] [address] #### METH #### [facility] , Thyroxine (T4) free [Mass/vo lume] in Serum or PlasmaOrdered By: Candida Alexander on 06-21-2022 Free T4 [Mass/Vol] 0.77 ng/dL 0.61-1.12 [facility] Vit. B12/Folate Profileon Cobalamin (Vitamin B12) [Mass/Vol] 369 pg/mL Normal 180-914 [facility] Comment on above: Performed By: #### V [id number], T4F, TSH3 #### [facility] [address] [place] [address] #### METH #### [facility] , Folate 7.4 ng/mL Normal >5.9 [facility] Comment on above: Result Comment: Rosa M te reference range: >5.9 ng/ml The WHO technical consultation on folate and vitamin b12 deficiencies has determined that folate concentrations less than 4 ng/ml are considered deficient. Performed By: #### V [id number], T4F, TSH3 #### [facility] [address] [place] [address] [place] #### METH #### [facility] , Coding Summaryon 02-13-2022 Coding Summary HTMLBase 64 PudteuihUAj8kTt+PGhl YWQ+ZU3LZYXvB06ezFJc bU8DP7sICT6ZTGUHRIPM YG7MIZ3reLR1MRenN6Bu biAv ImpnvYDcCP89OIo6LUY6 tCteWLfjnV1vbDWaZ1z3 MnBrJP85wJ94ZLowMRLv YxE0AdBmnvdapQNd C7biQfUtxVKjAai+PHRh YmxlIHdpZHRoPScxMDAl CoJibRlkRG6gBj7oINJs LWNvbGxhcHNlOiBj v0dcDSEgYLjwEO9yzAaa W9CybMM8OLMjr9r1Vg72 dHI+AUCcDPJ9eMhvIXda e741PgKjv2qvZUT7 hCDuRQysEKJ4Y24qc6B9 ADMlBSOeKYN7bIM1jT9w nMvpikphX5WcfUZlQoN4 XUT8hUFzjT8mhHxs fghxrH0jEsu+J16TEV0H VEJWVX0DKni0V7LfDnrh dHI+ZY48HUTrXC02sQAg gZGmb3ourHf4NmLu KVKmOCI0zDfnMAutg0Kg IKOlY42avPTuk1F7TGZz dIcmmVRoGmGebRH8eB7n OLzhhhbgm5wexayv Melsc7mpcp96dA75K94y RVrxOYLxJMQ5TPUaGDXf wNkisn5pnP2pHl4+IDxj q4rue8legMc8KgMf AZVlotGesNjaFSN8s8Gi Rg29P9JgvJcfl3IyVfl1 bw32cSIji1X1nMI4ZLnw KINmhW0sREeoUwR1 IERzKqQgfY09sHGcCIax Nd1ozUdxxJthYF1aFRMw nccbFVIhdM5nQCOqjCVc mXmfDM6bRCZxtiha y660DdPqTGE0UAKviMJm M5DxkX7cGfXmQMVsSNDk M5AxgKBrYGkoE907SMff EnI1NSMsfzHqL0Pb RKQftLywEkS3k3F0Ig5Y e1RighmxAJY4QYjrSNE3 TbS0NoVhBpC6D1KjDzd3 IKUhbDihJA4zA7Xj EAQlxzozwyeitZW6VIAg PDUkyG76wCReBWmsCo4d s5O1z066VVHvKFPahG95 Gv2seRgpVQSonNFG qI1pkhvgf5vehwowSyWu IVToQZh6AAw8KUFzyApm ZjSsORL1LhQ4ZXD2aWSf tD7pwWdwengqgX2g Oyc+B60jxR2uNKZ5MRW3 yubyEPHlkzOhOR96RD32 G5TvVrdgyMYnqBR+PGRp dpUelJifWG7rYlDa i8yep4BhFKrpW1KgKTVf MPddRfy1TTPvNFY6mWH0 qQ7nGOLsVUole9Q3nXO5 J0FcstQtui4iz8tq BUImRLirM92cgVWpr7T5 MKCfyKQ6PLPlnWjpGsIp uG15Qgo+QVCqgLwiz5Je Brdbf5uyz1zkyAr5 IjMwJSIgdmFsaWduPSJ0 l5WwUw01D88vHHrjOSJu TQGcPKIaKSThvMmhri6n fP8qVp4+PGNvbCB3 gWF7gC9jMSWvQsS5RCin M333PkUoePJoOwjvu5an a6bybIt9SoEfYWSocfBl hXxxZUY2p4XcRm56 M05mZAriBVFaIFWqUFHq EPHtzSautf0faV8wRg1+ WI7jx3zlvw54nC48aKO+ LYDcWMJ0mKyiZRvj GKGvgC7uIPxrSlK9ETWe RtBftO36jGQoJKfzPz6e tHdmmBbvUW2hDUEvwiyg e853ChRxi7miVQAz mTMoZNxvIXM2R28pv0E6 AQZmJHXwACP5gPE2uC0x bGlnbjogbGVmdDsgdmVy qIphFFklXInaK369 IHRvcDsnPlBhdGllbnQg UwZzTEa1M2SzUwj7RIOj oBvfJX0geHStQYobYb3x oFmvmWebGL8nQQIm mqxud284KuUzx1hxKCRw fMDrYSfsWXQ3U68fo1R6 LGIaCILnAJW6iVP0eH7n bGlnbjogbGVmdDsg xlYqfSckZReiEHjaV086 IHRvcDsnPkJpcnRoIERh uKJ2VW84SN41aFJkw8B5 uNU4U1MqZNDrgnqa edzfbVM5EAMcERNhsP21 Mk1dwTknEs2rGKJgMKT5 TMMceRPwI1VuyL1tFaFv AAGwDLBsA7OasVKo AZwvW550FYbkEbM4RIJu rzQyS7MoZBVmzQkhDpW5 i1X3Qz8BK5W4JO09CD84 bDKpr9X7gCT1P1Vt SEDopfekinqjoAE9ULGn GBXtqR30Vb6akKzrTo6u XTZhOPP7TZBugZNbU6Jj zJ6cHiXuKCRkQCZn U3LciEOgEYomF916TEww BdR3EWBiwiGaM5OgZGOf qPebZjV2y1F8Yx8GBDf5 AI33WP22vTGlv0W9 cQD1F5EaFOXqistancrs cQS0OPRuDGAswV50Zs7x bYjeTm6yWTZwSQW9FAKh aVRiI9SenL1cHrQj JKEnSXXaV8BqhXXxLMlw Q078EPcxZjU9RIJwitTk Y8VpKSUlmYymWfX6o4Z9 Sg1KQXHqFP07BZG0 xAE5QG37ZU86V0WeKvcj dGFibGU+PHRhYmxlIHdp ZHRoPScxMDAlJyBzdHls RF9qEg3dKZMcLTCa kNaxtQCcJkZwn7vnHHEm CCavYS5zhRdgR1LhbRZ7 LKCpg7i0Fl35Q77eL6Nn dXA+XTJycOS3mMU7 iS3vFsShWaI5UDjsE831 RhGylUUbFdpkv4tcd3mg pKk3WnP0GLWoqvOgoJww KVF6p5ByIh66W87d IHdpZHRoPSIxNSUiIHZh cGkpap2ghA6bJt4+PGNv oBM3fIF3pR7dCyTiCfG5 MRsxU080LuHpcWHk Repvb0klj0meyWb6LcWr GCYrctHymDozSVU0s6Gf Us89M5EhyEpwn9NaNee0 pc65uGUhb2G9ySD2 S0CrZNCxyvqunCLiwVjm BB6yYTUkpjeySLSdsC9d IAAkT4u6RlQpEuN4RXvu N0IxdsN0BSLrxJLk UNocZIR1M81uj8B9RIYn HEUgCIA1sCH6hV2fqWin bjogbGVmdDsgdmVydGlj FYydPZvsZ896ADPr hOsnDDSjaA6dUIHqgUNj fDkmNW4sWJFrryjgXcUE F5BKC60PSENMC8QUAjEf TIrJQC30T6NoPwm6 QLHmyFvwYQ2apHMmLUmd Dm7qoVzziXxgTB1oVZRw rgrdEYJrfO7mJTQgyJFm qKpdVZ2xSSMaqkuf j199VjMtXDM8YDErpPWt T3YtdJ8wCiZiOZPeKDFz W0JfjEZtMCtzF022IVdk QnO6AASpyrCkX5Sa HKQqwRctYwA8s6X7Gf7l FF2sZk4oFJX5MW90PW58 vYIhh8X7zDE5Y0KtPBCs lsnjpbyucMP3TNHa PPTsaC58dPQoOZblCl5o r2L3b775NHZtBWWrlF83 Cf1juAmiLVOaoXHHiG3y eeuvq7znblcePmHm XEXjESt1XIp0GXOorJay EeTnYXP8RcU7KDL8mHIy gC3mtVbozvqhnO9bRth+ SPNdZXRqvuM5H9Vz Aup2ZGIbpDqfCO0btYJe XVgsHg4zdJujxHooAX2e KVKiicujWAQakZ1hWZQn kSQsqZuxOD1uSHUi nmrcn879JzIeQOI2GRXm mKKoB2GxoB9nMqBmQYFn SQOyT2RfuFXqHYtxN885 SBziXsF5HZKwgwXv G1CpWYMwrGugPwM3u0L0 Ap1FSKeWOO53ON46kUPq g9O1jGS7W9ScDXDlmvqh arxaeRI3XDXcLSLc gZ35qZUmODfwQg9mf5T2 w793PVCdLIVdsC97Hz5k vEbwUQSgzEVQhI2ullnz q5tnyjetEdAkJIAu WAy7LSg0RUDrhFlfFzBt KCA1HaB4WUV5bSZcfX2n jMnofojfmU4nPvl+T1A8 Q2LnDbeygYV+PC90 IYUuTX06yRTdmUPzk8bg jZf6DxDcRGTuQUC6qFub WKecd8PpGBUzI83bnIJi z8G0XOSaeEqwiVAf HuOshKW8gA1aOTzqznhw d9udfqslJzwgy5kihz50 tR73M69uRKoiSJDfAAZn UECzXKBuzEdmiy7a lD1sAd8+JHSpvOR0kRV3 bT7eZwCbOaV5XCtxS418 BlJtaLXcQprbh2fvg7lt oQo7OqNnQPGpvdXn rSzcWWC1q4OaCx91F64a IHdpZHRoPSIyMCUiIHZh yLafxg3wfE0mCx4+PC9j a7oxuj51wC80uKA+ ZZVoXVJ9fLwvISacKXTg jT5eCHenYtS6IQHpExHb jZ83eSJfYKhiHv7fqBhr vYoqDG3rABZkxulh l347YbYhn4trUADdjLYn FIyxYWD4J48rl3V8UTRd DSKxJCQ7kCN0sJ4iiGjv bjogbGVmdDsgdmVy pDrtHKkqAKlgF805UOPe sOokXeHfcXMqY3zsmoIA KQ5rBvaiwKG+PHRkIHN0 pColBIklBBGioB9n ADUvW4u3CpNeUmG1TPnt J5ThsaA0EJSiiUToVRTp oIPTnW9vcpcoy2qpsirc PjEoPIRxDTd8FUw2 FQMmuKxrKiVzXVA3CnB5 KJJ9fDUbcZ8ysQnbztpt hB3uXcm+RklOOjwvdGQ+ COXhCVM1oYltFBtf IPFnpA9rSQUtJ8f8DlDb YrG4FYskG5VcxuI9EEYt cZDtGWGhcFHHlJ9fggrr b7xjsesyYyObLGNx EQm8UWq6BWUbqPvmAnCt EMX0RvJ2TZV6aSZpwQ4g qZlazqygwB5bZkg+TVJO OjwvdGQ+PHRkIHN0 hSfuLTqpDQJwfY4yZHUz X6m1ZrHuZqG4EDqkJ2Cv wnK9QWTefFJxLKPraEWC tR2dhaowd0eitmox ZsZnREBzLOb5DRf5FTSi xPokNbKvDAB2KhN8STY6 yBUcxJ0weTqntagmmZ8s Oyc+EIM5YZE4LP96 ZZ54F5UlIpwftBNsxOI+ PHRhYmxlIHdpZHRoPScx LXMsHpHpvNgySC0tUl2u ZGVyLWNvbGxhcHNl OiB (more content not included)... [facility] Coding Summary HTMLBase 64 PnoynpyeKNw5rIg+PGhl YWQ+CQ3NVWXjC98akYSz kN4EK7nPEG2SPTTVOUIR YH2XEQ0utCE6WHkpE9Tw biAv CqdfxJRtWP26MXr0OEU2 rMxyQYaweQ2thTEnR5b0 TdKwMX60xR39AGnlZZYh MfI9YfJmvsuodYEs K4xxElAvpOSkXqo+PHRh YmxlIHdpZHRoPScxMDAl UqIljYivLE6cQu4mFWMs LWNvbGxhcHNlOiBj l3ayHVWmUOfjSO5gfKqf S8VprIY6WKBnx4e7Wp94 dHI+RBJoDKV0cTynFXon t571GrNnd4rmJES1 aFXdWStyYAK6R33wb0F4 GFQyNMIgFWM3tFE1gS7m qXqltvmtM8PsqCJcCfW9 ICL5cHBeeZ2neEcg qeljbB8aMqz+E32PLY2X NFOSWU5BRww3N7EyMywk dHI+ZO34GJSoQX55uQJs bTIaz6akzCn0OnMz MALlLYG7vAkpKZfol8Pb GRWrE71evCLmd6P7SMAo fDnwrBEoQfLkkUZ6cR4d PHulkbkme5zpgogn Piskf0jjtc97tF88G83y AYynPXFrJIZ9DFSnZWGb sKvsxm9waU4aDv9+IDxj p3opb3obeFb1LsRx MHQxztKynKrhCXA8m7Lj Lm90J2BnpBdap2TjLth1 eo19rVJgk9T2rJV2QRry JAQgvX0qRNadYaC8 PDIkRyZaaP59hVMyWEyw Yj8oyAddkChgGF7tKAAd pohxYNYetF2fCJUnoIMh eAgiKR7pLKQhimim r269EeSiWVI3RIFquDQn F0PquD7gPoJuHXOiMYNh B8ZoqXCuZUnyF083UYce PxP6QXTtnsQbL9Ce UGUjiDmpYxS8s1D1Nd1H d7MrbgrfNHN0IWoeBSD2 PnX1JoNqGyM8D5QqOcy8 MYXtaPbiVJ3xK6Qw AOOpntsbzkmohPF7XBHg ANDyhK23mIJvDJxnPp0k s6A3o322AKMvNZSswJ67 Kp2ggHpkIJTthRIK bE3joiype7slfarlPpTz NVJyDFa6BUf2URScwJhv IzHxQSE9WvV4ZSQ2hZMx nB7rwCilppsfkN2l Oyc+Y71ikW4sTEO3TJA5 mkveAJGxfbLcER81AC74 L0JvUpzdiQHxlNE+PGRp lpGtjFxjAX1eOcKb r9kpc3OkHAzyA3MqXBMu OYmcFsn5JCKhBME8dWK3 tI0oBHPtMImud0A2qMQ0 K3VactJpag6id8ay XEXaCCclC51ysDSod8B7 YLFrjLY5TGIurVyrUxFv qC70Byx+OVMmcNxdn8Vv Huiti3did6mkmNr8 IjMwJSIgdmFsaWduPSJ0 t9WnIo96V10iYUasMITw EJUkPKHtXYUcgVaqnb9e zC3zMc9+PGNvbCB3 yAE0uO3nXCArNrB6ULla I810ZkDocUSpLefvs8ie z5qxjAu4ZcRoTQAydoMj qLayOAN3f9ByOm12 U14bPFyfMYAeFOShSAAt GWDpfRftfl1auC0dWb5+ YX8ox4ydwa67iF71aTM+ OWSoSSS5nKxtXHge CLIbuO0wTYgfVnM8XQJi CrVdxO61vAUpDBotAj1h tExvvJjsGG7vIMTdtzyc p396UmHtt2plZBTz pXJcLUnxHOJ6R69do5Q4 XOKbZAJnJQU5uUS3oO8c bGlnbjogbGVmdDsgdmVy mAusREfsAShzF824 IHRvcDsnPlBhdGllbnQg BgMdGMj9M5BtSqv7GGWx xEapQS9yqFBvYIohRa0l uQqhjMohTI0zECSt rccel036CzGyk0vwYFQm aFVgOHslUVT4X76ge7R4 XGYxJUSgIIU2gOQ1fF9i bGlnbjogbGVmdDsg afZrdEpgJQudKHljY892 IHRvcDsnPkJpcnRoIERh eCU7OQ19FW07kZAil6M1 bCE9K0JcOGEazpic qafysLF3DPAnEPTyiN67 Cv8vjLmgGx4cXWDjWCO9 VPTwjWWjS2FufB8hBnHx DNJrLWJvF1UyhODp ERpkM151HQlgDxB8TAFb nxTsO0TmOVKdxGucPmC6 y9Z8Jh3II0A3PG26PT91 mVYcu5A3yKB1T1By GCJgvorepscpxGC2NVVy NSKwkY62Xe8fuSrsLp1x XRXzUAG7YGQzcRTcF7Pj nW6gGuVlAQCcSTWu M4EtsKHsAIhwH743TIcu DnZ2XUFgdwMnH7RcVMMl tJmbXtJ7w8Q9Kt5RDLn8 UQ83MT31kRHwg3Q7 xCY3G3GwLUVezdpptiat kDD7MQQlYTEmcC20Ab6e eEytFi8nHEYnZXE9NAIm qVIeU7XhuR6tMkZp VTRpAVBcO8MjwQQwMCmd K473USnmBbO6EKEtseJj F1DgNQSxjRbyPgO3s7L3 Yo8OTWEmOX44TUV9 lID8PB86FO98T9GzKean dGFibGU+PHRhYmxlIHdp ZHRoPScxMDAlJyBzdHls IU2tSb4wRJBbCSLe cKrhsSWhZjEtn3siGAVv TByqMR6woZvbF3WswHU3 HYRhx0t8Dg47Y06xU3Hn dXA+NKIvjFY0vWZ8 hB9lFrBfDhK4TBjbO642 XyKhtOIfPwmcp9all6eu gMf7BaN0MFTbmoTzrImn DCJ8v0JlVi34O42f IHdpZHRoPSIxNSUiIHZh nDcoas4ngB6sYg3+PGNv dYO0yQQ8wV6sXoPlBzZ6 IXoyU624SbBxoRWn Lmrxm6vdx3mvrYs2ZvVi NQItfzQmiHetQLX6z4Vr Nw47D3PprIfng6TqFoq0 pq90iHUny0M9yDI3 M9PxNZDbfigmiTUnyWue YR4ySQXczfwgWFSijR9l OHKaG4n2KvDfJcU2KTwz X7GlnxN2BYNtaCJf LCbeHMN5N21zc5N9VRZe XODfWCD2pPV5gP6hjXcj bjogbGVmdDsgdmVydGlj CTweQGdoP034AYQv wRmpKQFicR2uOQZswDWk tYlqNO5pGASliptbBrMY J0NYK34FCLDWE4FZRfGe QTkQXJ22F7JvVju8 LTDvvDsqUX8mfVXhQGut Yu0pjQubaUzpRJ5qDLMf yjzpILRklF8jOKGqwNUx oBnyPN4nCICplmqy t047YmCfPFV1YIXtuFNs S3RcuJ7gXyGuMYRiLJIg F3TpiEAhBPtuD277ZDzj TeU8FMLsjeImH3Hv OAXsdAuvDaA3t0J6Nr1j QP9ePi1cYIV2SA50AR53 nEJjz1Q0uRN0S5HqDVXj ildynoyfvZY8AZBo LADrxG09pJMzQSjnOn5z d5V6a005OOQwRHNsnB95 Up3djJifVWRsuMRHzJ4o czugw4rrokclPrDr RFRwGHc5DQn5ODJzoVsz XdFxHMO3JuV1JFD4mBNm qE4bgQwkctfiuE6oMyd+ AMRmWZHlmrY4D9Uv Zwh3LXXisCibOY6rlYKk COsdEr9lcIguaLulYE3o IZYfpdtdMICcjX3vGUSn dHIwhDydYN6hEPGw kuxrj260ZtFwJTE5YYYw aFEmZ9MnaZ4dGfTiTYBd EEWfN2MnbNIiGEocT770 OLddJoO5LSDxkcCa G5GeMYWxzHeoViG5n1Z1 Qj3DIBeOSR44GE69fHRq k4W1nQE7Q1ZnNMTlxhfc qxpkwFF5GUGdFFQw yN70zRGvXJrlEn4iy2Z0 t883FXIyXYCogO75Yc2o iLurFRBzyKXHkB6wprfu h3sfpzavRsSdFAJy ZJm4TMo2SDLauXzvWxSh MTS0UdW6OSU2vFFfoV9p sQokjrcktR8sOjb+RW1l relqifX6AG77HJ99 Y4CzYrrqxAZyyCQ+PHRh YmxlIHdpZHRoPScxMDAl DnVhrRhiKC2tNd4cKPHo LWNvbGxhcHNlOiBj b9uvVHGiYZaoOQ6dlMli B7SjkNH3XRNvh5t5Be94 M69sV2PswUI+PGNvbCB3 cSJ2gO2uVqKzQwD7 TUzvZ043FrRtkCRvLpnt v5hza5flpOn2YpTiRXOr zlPlnMyeGYE2f2AoNp52 V96lMKjkSTRbFWEr XGQiDQPfxVmbzx0vwD6u Ii8+LQEezEO6xWW7gQ4i SmDgMpC5VRjyD672KnSh tSZjDebiJ86tX9Lt dXA+OKErNku3GKYulOht HL2aaWZeOOczTh3yZRO7 JdGjDdJmSQhrV4VyVVCh yyagzufjuJL5IYTw XBImeI57Ku8ubMjkXl9q ZKYsADY4XBVvtISbW3Zw nK3qDmHtEHXiTGJnF3Nk oAMdOYmaF740HSgk ZdM5WKBaqtFwE7JsFXJx mLrrAsG9l4V2La7YpEbh eDDyWD7xAkYgVFd5J8Dj Otl6NIFprBncWW3h aJDlKWejCb4spEhnhJli FL3lGPOnkmdql332UlHi x7naPWRedKYcQQenXCT4 N46oq0M4JADrCZTd WYR5jML8fC3eeEgppvqq bGVmdDsgdmVydGljYWwt IPrhZ614DIYfpGmiAdCE Son5W1HdPhq4JICi eFqzKM8pnHPlOGvaWf9o vBnzsSttSO1rDWFeulbd c494BwQyl8wiCZOqoIIr FIebCHO3P37rm8N5 GFToBOUqJUX1eGB7tY5z bGlnbjogbGVmdDsgdmVy oLpkNAlhAZkxL026DDCx oDmhHv6LCkp9B7Ax Zjt6JCBccHtqML3fqWRu DDxbAz2olVyzfBczSO7r ISLukbkws662RaPsw2hg IDEwcHQgVGltZXM7 E23sb8C7QRVqPBZlSRP6 rLQ5kJ8khUhlvlxvpWWq dDsgdmVydGljYWwtYWxp B746GZJxzOpmJuKm eWVyOjwvdGQ+HY21bd85 M5SrHeibLih9RRJrLSM3 lTN6gZ5zBZUnMNmsi3D3 xLE6Y5AltoBxya9k b2x (more content not included)... Normal [facility] ED Clinical Summaryon 2021 ED Clinical Summary [facility] - Emergency Department [address] [place] [address] [id number] ED Clinical Summary PERSON INFORMATION Name: ROSA EASTMAN Age: 56 Years Sex: MALE : 1965 MRN: Acct#: Visit Reason: Hand pain-swelling; RT HAND SWELLING/NUMBNESS AND TINGLING Arrival: 02/05/2022 14:13:58 Discharge: 02/05/2022 15:08:00 LOS: 000 00:55 Check In: 02/05/2022 14:13:58 Checkout:02/05/2022 15:08:00 Address: [address] [place] [address] PCP: Britt Penaloza DO PROVIDER INFORMATION Provider [...] Cubital Tunnel Syndrome Follow-Up: With: Address: When: Anrdew Mckenzie DO [address] [place] [id number] Within 3 to 5 days Comments: Diagnosis [...] for reevaluation. [facility] Return to the emergency department for worsening symptoms or concerns, acute shortness of breath, chest pain, abdominal pain, nausea or vomiting, or any questions. DIAGNOSIS: 1:Cubital tunnel syndrome on right; 2:Paresthesia of hand Patient Understands: Yes - Patient/family/careg iver verbalizes understanding of instructions given Comment: Normal [facility] ED Note-Nursingon 02-05-2022 ED Note-Nursing Pt presents to the ED with right hand numbness and tingling that started Friday. Pt also states swelling, none seen at this time. Pt states a hx of surgery to his right Arm for a pinched nerve 3 years ago. Normal [facility] ED Patient Summaryon 022 ED Patient Summary [facility] - Emergency Department [address] [place] [address] PATIENT DISCHARGE INSTRUCTIONS Patient Information Name: ROSA EASTMAN Age: 56 Years Date of : 1965 Reason For Visit: Hand pain-swelling; RT HAND SWELLING/NUMBNESS AND TINGLING Arrival Time: 02/05/2022 14:13:58 Primary Care Physician: Britt Penaloza DO Attending Physician: Lennie Wilcox MD Comment: Visit Diagnosis: Diagnoses This Visit Cubital tunnel syndrome on right (G56.21) Hand pain-swelling ([id number]) Paresthesia of hand (R20.2) Prescription Information: If you have been given a prescription for narcotics, seek immediate medical attention if you have any difficulty breathing or any sudden status changes such as confusion and sleepiness. If you or anyone you know is experiencing suicidal thoughts, mental health, alcohol and/or drug addiction problems; contact the [facility] 02/06 Crisis Hotline -Text 4HAGU to 472462. If you received any narcotics, sedation, or [...] documents With: Address: When: Andrew Mckenzie DO [address] [place] [address] Within 3 to 5 days Comments: Diagnosis [...] for reevaluation. Pres[facility]. Return to the emergency department for worsening symptoms or concerns, acute shortness of breath, chest pain, abdominal pain, nausea or vomiting, or any questions. Medication Information: The exam and treatment you received today in the [facility] Emergency Department were for an urgent problem and are not intended as complete care. It is important for you to follow up with a doctor, nurse practitioner, or physician?s technical services assistant for ongoing care. If your symptoms [...] can reach you if necessary. [facility] Emergency Department has provided you with a complete list of medications post discharge. Please inform your community relations officer/provider of your visit and for further instruction on these medications. Any specific questions regarding your chronic medications and dosages should be discussed with your primary care physician(s) and/or pharmacist. New Medications [facility] [facility], [address], [place] [id number], [phone] predniSONE (predniSONE 20 mg oral tablet) 2 tab(s) Oral every day for 5 Days. Refills: 0. Additional medications on your home medication list not specifically addressed. Please contact the ordering physician if you have questions about these medications. acetaminophen-hydroc odone (hydrocodone-acetami nophen 5 mg-325 mg (Hinton 5)) 1 tab(s) Oral Every 6 hours as needed as needed for pain. latanoprost ophthalmic (latanoprost 0.005% ophthalmic solution) 1 Drops Ophthalmic once a day (at bedtime). both eyes. Visit Information Allergies: Substance Reaction Symptoms Type Comments Bee Stings Drug penicillins Drug Vi (more content not included)... [facility] Provider Orderson 10-18-2021 Provider Orders [id number] #[id number] [facility] Coding Summaryon 10-15-2021 Coding Summary HTMLBase 64 IunudsegPMv7rUa+PGhl YWQ+TH7VMFTfS42dcOGv wC3DT4vBSE8MFSLOLQKT JJ9XSJ9chOI7KEsqH5Ll biAv SadvkOKkRS39KDa2SSS3 pKegJBdyvO9acYReV8g8 LuQjCD63rY72ZNduUVOo WwX4RkEwdvnskGPm Z0gtRuJefZDsZou+PHRh YmxlIHdpZHRoPScxMDAl OiBfdRsoBN4wRd2bVNRj LWNvbGxhcHNlOiBj m6ntQKVsMUgzYS9fvEsm L0CewKM8LIIms1l9So74 dHI+LRPpSTA5uTsqJOuf v495LaNzm4ebGCG5 eKXjFRirTIV3A68yp7I0 SXMdOVDfJPQ4jIT0oM9o uGolerlrH5BquEZxPpU6 YRQ1xXUtqF2imYte rkrrsB2eKnd+Z43QOJ2K BXQVAT4OLjc5G0MaTkfa dHI+XH49HOCpGY95mJVc wLRrd3xeiXy6NpMl EDXcLYO5zKjpPEeti2Xj HDYuJ07eyCUhz7X2BGLj pPnbuWYlPdYnzQA6qX4c WVvcybljc2zzcfgq Pkrxo1shvw72aE01X09v LKokYBFtUOO9GGFyYNGp cGfrjw9vxR5yHi3+IDxj o2zvq9dlpSt1HfUz FKPofiZtpQkgAOZ1l8Hw Vd60D1CxhQeyr4HiNdd6 kp46uGWak2H6yFH9RDam VFYegH4aTYrjRqS3 BWLjAwTygS45tIAfYTbh Ax1abUaxrWznUJ7wYVIr fgprVVXovZ0dLEXpyVHy rTegBC9rRTTnvliu h262IrNaAPG2MVDjcTIz C1XneD1cGrOlKFZfTZAe K0PwmNInIDoiP138DHdi FyI7FKPvcnCqP9Mf LBHrqQhqPoZ2h9S4Iz6M x2UzlchpNIU2LYzcFRMa NhN4QfSoQfR4G4YwLnd6 HNCqfRnaTA8kA9Af RKYkzegibwptnPD8JVNg QOGryR39gQRtKDebMb1a x3X5f953IDPvTGUgyJ09 Xl8zyVdcHHEqqRSW lV1rqfuvf8xasjtnTxBf CIRbCUt1FDl2ZFOcbVxr CzWzEAC9VwO9GTS5dMFw dZ5bmRqiefeudZ2h Oyc+P34lrR1vSSG2CPS3 igbzRCIudyWvHI78TY64 G7BzCopafSBalPU+PGRp kaBcqEcgMM4xTzRw e7rrj5UoZOzcG6KqMBAc SLmxUmx3SLQzAFF9qTY7 vK7gCWOdDYqhg3N1lNX4 H0GdvqYkfn2sr7jd TAAyIAcfG40xfOKin1X2 VKShgZX7DMZzqBtvYmEg zC86Eiu+EXDhyZpzd0Uf Bllbi6oxq9oyoQr2 IjMwJSIgdmFsaWduPSJ0 o6PqOm77Q53uLTjjHLPp YDBeIKTaYKDekDhkry0t iA4nHa1+PGNvbCB3 bCE4aE8tMILpVrK9SBfc M871TsXjaZLuLxrai6qg z9angKu0LgMoQWOougCp rFjtRFI0t4VxLy05 N58nXKwnDLKuNVZeVUFf YNMvnKlnno9upV3nEd6+ LN0co3lbqf85oG74cXT+ ZNJbLUB4pYtkUIqb YKCzgS0uMWumIeM1UZHj JbJjbM47lXZeAKchEw6x zZsqfBcxOU4hXABuxxfx m045QxRok5okNFOi hVMyWUaiLWQ7L86pe9W1 DOAaOARkMPY6kZS4wS7n bGlnbjogbGVmdDsgdmVy yWjoJRbyELvrV928 IHRvcDsnPlBhdGllbnQg ChPbEMo3O8JvWfd4XWOp vLxvQS4flJQjUNouGk1i rEomdIxdPU5nPUCh dsbzf335BnQcy6mmXMJe bCIfEZonEAP2N98fi0R7 EZKeGQKpKDD1dRO1tA4n bGlnbjogbGVmdDsg zlKinEwjDLlgRLrzC968 IHRvcDsnPkJpcnRoIERh uPO9HK81JL91lEWyo2L1 iEW7O2LcNQHfgyhb yrjotZU7PITjHWHdbP94 Xr9jfUpuAz2ePLExCNW6 JRPfsRUwW9EzoW2yIhVb RAFwZDUfN5HopGLz YHhsV937WTakBkQ5PTHz nhZaX6IiEGKlsKzxSiR8 u4Y8Oo8AS6X3OE39BQ73 eJZgj6L2xBG6E5Be AJJlksxvecniyVO5XCQy OXTueV90Nr8ymTbqMn5d MBWqPAP8PCXamKVzX5Bj jO9yLkAgAZYbXOBc N6AsdTWxFAnxP732VZvx MkW1UPArngLxH7XfDRVt bUncYcI3e8U4Ma6HZLn7 GP36BA44aNYqh2F9 zUB6T0DxPYUmgxstmpux tFG5MZPaZVJvsV16Np8v oWguWa0oHTXdPSX0QXBf tFKzI5MrwR7jZnEc WCHgTPBeN3TszHWaXHab K587LNtsRuC4ZZGmhzIw M9IiYIChmMdsMuC5j9Q5 Tc1VXCTpEF46TOU6 tBA6RE92XX90N5EkKxsi dGFibGU+PHRhYmxlIHdp ZHRoPScxMDAlJyBzdHls LP4xFk2rHWLcCKDn wFbmgSKsIeJku9ffZHWn QQzjFJ4amPqiW3IplUC5 VTGqy0w9Pv33E83qE9Bt dXA+LPKlbCX7wXI7 pV6wHiJnCsI3NDkiG523 WcYgnTPhNemlm5ksr0le sFi5YcK0VGXbolXwvIji VWR1l8EeNa55I56x IHdpZHRoPSIxNSUiIHZh aLynxi2hcG9uDt3+PGNv kQM1aOA6dF9dPrKfSjN0 ICtaW422QiDevYCb Dpgeq6ksg9hhxFr9YtTz CRYnscDizFwfDBZ8s7Oo Yf54E9VocHsuh0DoVrl1 bd98aMFyx3L5qCO5 J2VdCCRfkhxgnPRjcCvq BW2zEHArywenNNPheG4h GRFaZ2t0OvIkSjQ6EAqu I7PwkxK5VSXbwPGn YGfxIDC3C05gf9I1CNTo WYDqQLW2tAW5dA7fsFhl bjogbGVmdDsgdmVydGlj INblCNkeK079BFUj rKbuBOJwyL7nFCPooKPm zVmuAT2pLEFqczrfXeLL I1PUC70WUNCZS2CKVlAs ZXtEOE15M6WgCos2 MGAevPpaYV4gpEPkEPui Za0hhNrgiZrnCW5kYUVq rwoqWBQetZ2wRIEanERx dFclUG8iPYYjpstd d253BuGjQBC8ZHQotSYa W8RkrL5dEeGaAZExXKOd L7HgzMRdCQxaK747RWxx QnQ8OUHajzScB9Ls YSDqbGynWkG8t7J3Fb9h CT9gIt1xHTW4SR79XB37 eOFtg7G7tAK5S6ScBNVf xruyfhplxKR7UTHs GWXvqT55bDGyDFhwYc8v a9A1a982BMSdBFNbjA12 Vl2lgYgvOKIhlREFkR9a gvcca5dptlezSqUv BUTsIMc2LFp3RUCrvZbm MgKmIFY0TbV3AAR0fFFb aC7nyThlzwnhbQ1nWvd+ HOKcHJKlzcS0J2Pe Wlq1BRTtxBjrBN8fdMJm FAjgVb4gvIljiLnpBS8i EGNidjijKCTvvF5kXLDn nVEraIjpIV6mYVMg labhj881AnZxZJG2HGDd uWXsG2KduQ6uGlMkONEr ZYNgI9YmyMCiLTkxQ071 WIwyUgC9FEJyrtFg O2ArBQMynBtrLmA1u5S3 Pj6XZSgYYS04RI51sRPi l6M5tZA8O4CcUYSwuwru rfgkfQD4ANXeVTLy mC05bQHhJYrcSk9lr5N0 d195NCOcEZYuuP61Ih4h qQdrILTuqBLJuQ7tswhm e2wcksxqOcZkAZMi ZFp7ZAc8LALjpBimZnZu NUA6GhI8CUV4tMQauA9e rSlptxtekS2sSrw+T1A8 Z6CxVjgeaTT+PC90 EQBuLG71rQAexLUvg1sh yYz2AhUxIWItKOO2uYmh ZJrlb7LmGQHfE81azANr c2R5CHWxvPqrpNZo QwQogBK8lH0hLGpurbti h2gfioytTztjo0xrvo01 cA68U81tHFfkHPArYZLt CAPyKLLrbXqhdu8q tB3tZr7+LFHbhTD4fTM0 vE1nTdDbByT4DEbvE113 VuXqxBSlSvgae2cmd5wr oRl5ObSnPZMxqzXd wFxkLWJ6y2YuAj56Q80o IHdpZHRoPSIyMCUiIHZh eQgsxc6kiO5kNa2+PC9j r9vvjl70oG64sQI+ IGTeGJH9xSeaAUncUZXq xV7cCVsgPqM1XVApWfTk hK32pPCoIQxrXf1haGso uXqkYA7jULDmotlb j176McBxp2ybYWDmfVFb CQbzREM5J13xm4T2LWMv AUXnRON5jLL1gE0wmLks bjogbGVmdDsgdmVy kSlyJSqdJHlaK055IVYw aTabBtGrpMCqN2qzawTN KH1bLcdwpZX+PHRkIHN0 hFgkDUzoOKMsiX2r OFBeA3a5LhLtKcQ4TWrc E3TgjuX7QDGyuIQjFFFp dYGJpU8cthhkv0ewhhzn RgDiIRYsXLy6YMf2 HRBlfYlnPfBwLBH4WdV4 RPO1jMQbbC6zzHaspymg gL4kHfo+RklOOjwvdGQ+ ZIYyEQT0dAglGOwd BGIemM6bQFKzY2r6HzTp KyL2LCtyA4LgilY1EYHy qWVbGUQkxSYWgN6zahce h5acrucsRwOuOEVb OPu0PIj3GCZtwHkqZoAh HOC7JdB9CAU0hXWpfN6v iUinscwqeU6qYtp+TVJO OjwvdGQ+PHRkIHN0 gKgxNYuuPKKlfA7mPYTb X6f7KaDvLdI1SXffW7Ur qcV9TWEcaCUnGTKbxAHL mM4qseidv1dndiyl KlHjZJRnSQe3JJj7EAYx kQjzBvQoVXL4QtK3LWC0 bDLuaD2wwElmcbqssM1w Oyc+VAJ7MJH2AZ72 EA96V7MuQbiueESirAN+ PHRhYmxlIHdpZHRoPScx DSCbTlIbwAgmWL1lFj6a ZGVyLWNvbGxhcHNl OiB (more content not included)... [facility] Rad - MRI Reporton Rad - MRI Report [id number] [email or web address] [facility] MRA Neck w/o Contraston MRA Neck [...] Torre MD 10/12/21 7:46 am Technologist: JERRI [facility] Coding Summaryon 08-30-2021 Coding Summary HTMLBase 64 HmhquonrDYe7sUc+PGhl YWQ+XB4HWMVzD96fqQUv qM9WE9iTMZ2DWTHQCSWO FV8VYJ1jiDQ5OPqnU8Po biAv JpegcPDrIJ07IOf1TBE5 cOhfEVcswX7cuLHdZ8q4 XrFrYW61uC49WEklPXTv BkN6WtYbgrksnATz A9kaIrSzbNUwWzv+PHRh YmxlIHdpZHRoPScxMDAl EuJszKnxAN5vQw3yFSJu LWNvbGxhcHNlOiBj n8abWAXaMJmlTU0fjOlv V0CslGW6BRLbl5g6Dx10 dHI+EODpIOS1tVmmOQcx a429HjKjk2fwSTH3 fBHfWIiuAID6B41js1M7 PZAqDKYtQYO5zTK6oH9i dTxcknyhD8CvqXMlCvS8 GIN9vWLedJ7qvXyu gauuzX6jNxy+A19KHP9Z NWUZMW7IEaa8C6FlDsdo dHI+KZ90RGOgFE88cBRp zWJqv3kfpOk3WxXw AICfXEY0fXjmWYhhm7Ew QWCvI57frWFvh2X5EKDz nJcioWJpXtRauFJ0rB9m XZszjllva8tnjfzr Jthsw0oikj75jG79R75d GHgqGZKsSDJ3HBZjFRJw aVnbzi8wiS4aXl3+IDxj s7auj4nkfAc8PpCd FKAqkwNrwAdvOJS0o3Es Wl57O9NayCnhc5GvHvs7 fg12kKHso5K3hRG6PSkx PFPxiW0sWDpyHzZ7 LCFdMqVmqR69hRTsSIyi Mf1xmAypiNpkVZ2xKGRk frvlWKPnlQ0qWREdrRTp qHifAL8qUIXxjrwx z285VxFvBEK7PJSslFGs J2ShxE6gEfKyDYOwXENe X2BmqNOiCWvrS600OAvs UxS1NALwzoUeV9Uo JQKynQcrDvU7p6D4Ov5U j2YjyfayHDA2TIozBCCm VmUnRgLqQkU3W6MzHgs8 ZFUsjDzxLZ2qW5Zy GQIwyzlnljbvtOM8TFJi WSQfrC14rWHrTQgvIk1k g3S0u552SDXqNCXgfO25 Es3ooFlyRSMdwEOZ oJ6tuhfzb6guizyxQaJy NLLjTEx5VUd3SVKhvQwl YwKsVTE2AoQ5DIO1rFXc wG4wbQhjfvlepR3k Oyc+C09oaP5cRQN6ESA4 vmggGIDqohGsOZ03OY92 K4EmOmkyqAMegWR+PGRp rlXsmKpaQD5uGhIv l3ofc6TsKYquR0GcECVv EXxtIzl8OEKqOON6xTA3 eF5hMRDgPPbbg2H9gOS2 G0WyviXmit9da3uk SEDxWCguQ40slGRhw0J1 IHImvLD1HNJwcLtqCbUv bA85Nyj+AINzmKoju9Lt Vcxjh1dxp3cnmXh2 IjMwJSIgdmFsaWduPSJ0 m7QaPc66T90iAUfeROAp VVYzTLDmYJRznTaycb4m zL8iRd8+PGNvbCB3 hOP3tI5yQUQmCaK6SDgl O033BxFjeYHlUhkvs7zu u5cqeMl2FjYnTBLtpcKc pUdsYEE0x4HhYc83 X32aKNcdTWXfJPAsEOIk RAVddBxvhl0bdX1xRr1+ LC8ga4gscd59hF01aXL+ YZIvVOF1cBzaIVsj VFQruM9hSOomIvU5UPAu SuDweW99qCUvDZwaWx4z nFqxpPabXX5xJRCzsaqh r542EwWtj7phQMVp yPJpAMzvGCS3I60ih8O8 TDOlCQFcFMC6nBQ8bG4k bGlnbjogbGVmdDsgdmVy fLmyEUjoOEkkZ026 IHRvcDsnPlBhdGllbnQg EmXxLIv8C4SeGtb3FYQv kMwzFZ9seLPjJBqnOu1p sEbxbAphVO6cCORe lduhw510MpMev9qkNTFs sVQfRDtbYTW7N89pt6W4 NYRgHRLoLUS1bFI3sK5m bGlnbjogbGVmdDsg kcEdoTzxQIfhQTaiT784 IHRvcDsnPkJpcnRoIERh bTJ8SO76MC61dLTyl9Z1 lJK7T9VhKRRfbyxi nujvwUW6LFNqTROjrG63 Go5wtBzdOm8aILAyZIR9 GSSohBBnN7AwdN1oFbEp RXNcFKNnD1LsxRIn UGjoQ380CVhvTaH0XPAt rjQwZ5QlKBYqiPyyUzJ1 k8T3Vn9BL9V1KD81NB13 dLWqh9P3kES5D1Ek GWFytrssjalhxNC6CBYa OJQnuQ28As9akAabIf3o CVXhQWW3HIOglDGgN9Zh nJ0uEwRkXVDoBXPx V6JyrBLyJRicG442LZnw PnV3KGKxfsQuA5YmDPAx pBmyBiQ6r5T5Hc3CVOf1 MW53HI91zOVum2U4 fWO7Q0TkCNNoqnkzcrws yJY0KWCiWQBsmZ97Ux2l sFzuDf1nOGGiYNU3NOQa nGBtV4UriF9cSdVk LRYfYVMuK8YsvOSpLXdq C026JZxeQlO6ZEKowaSq S4AsISEvoBpuZeI2f9G5 Lf3HICStJT03ARV3 wOA7OP67KM64M5JoUhwl dGFibGU+PHRhYmxlIHdp ZHRoPScxMDAlJyBzdHls EI8tEr6hBMWvVZLk gJtztUKxInWej3ihUJTb JDelVV1uzEdnD8EqqVY7 OLCaj4n9Nm43Z40rM8Nq dXA+DZPjmPF7rGY9 vP4eFkKwFrD6BRnvW393 JnRpaRMeFpuko9zav6zm vOa8GvC3TAXojaThjQiq PXG3u5OaLy62K82u IHdpZHRoPSIxNSUiIHZh bGduow0ciZ7wIz8+PGNv uGC3qDJ7pP4fWfWzEfI3 XAqzG114ZrFfvPEj Tbukw1abg9vqtGq8BlCk VWHbpiFzzLsxIEG2h7Ud Rp41Z1KhjEsgn5FdSyv9 ij48fZCns8E4gVQ9 G7SqVEVxiytijPAxnBmj FO8oSVBrhmpmLFEzgK9i AJJfR1n3BmAaDmB1OLhp W8CapyB5HZXsbPZv SIufPTU1J24vg6J7ATDx OOYgWSM3aDO9oJ6okZcn bjogbGVmdDsgdmVydGlj SOhwYDswC938BJSu pWawVTNjmE3kWTMpyFHr sMnzMW1eQGMgysqwDbSS Q2YMX49QXTWFM6FUVpYc ARqKYS31I1EjTin4 OYWadSpiPD8hiEPnOYkz Xb5rnDxhcFasJO8iIUUh wvvxGYLsrN1xEVCeyRSt iQdsHZ7aGMWqnyth e732JxUwQDI4ALKtcUSc K5BfvA0tMlTrXLNnSIKk P4CjpRMdAAqpS579SHyt DmE8WJKrfrGcW3Qz UZIxnKwpNbZ8a0S6Xd1t FR7uHt4fTTC3AN32ZB94 wFZtz4V3aDH5A6PrYNBf jeyminvtxVG8UTEa GGAfaD72qGIoBHvoNt4o x2C8c306ZFSmHXBzpL63 Aw3erCuvKXYmrVZZyT3j kskyn1qsjmjyDjRk VFPqGIu6FAn0BWPdoGxj MeNgMXJ9MjF0IGA5jZQv oE7nbXmbhwtejG3sKni+ GIJvOCRrxoG0L9Pr Wgn0CLNicVohUT7pbVTg CRucFo1ksFbrkWfhTH9j UMGbxoluKACawF7fRHJn dTWsyWdsOZ5hGNSw qcoly047DhByRMA9AWJd iPHtN0SyyQ6nJaGlWKAq TEXkQ2SlcLUfKLyeM887 WGevZpB0DRPsdiDd O5QzKDVeeXeuJpI5u5V3 Df7GDNqHEG87WA67cZIu r7E7mAW3A9YxRYEfmeuw reoymOS3ZVAcVNLr fE86iLQmMNvmYh2ns3Z4 x452PYMhXGYdtG15In2a xJrpKMWlfZQKvJ8ughfo h3hybuhuQrYvZUAi NZn4FEr1DEZkxHgiVuDs GAV8PhA8MGE9tXIleJ0l fDpbkgxqhW0bOau+T1A8 X4FgVajdsZZ+PC90 PEEcPO51yTEtbSVvn4fg vIu4XyVdXQEtLEE2kXvp WZcpg4GeKUOxZ96puNYl o6R8OLYxfOszmISm FrRmeRB7qK8yPImopmmi e3lwdlwgIrqyw1wctt48 rQ68I90oLZpkBFWkLFYe QSJwGOPqeZsluc0q oS2cSf1+PSQzfQD2uJY0 wH1oAyYaUkM5SGpsI796 CuCzwJOpMuffi1pdu1am nNh4TnPgPYOlnpOm cDcaWHW6j8AtDj57C51l IHdpZHRoPSIyMCUiIHZh pTgorn9ufC1tZo1+PC9j n3vidc29wX80sCG+ EBSzFCE5uIwkEEwsHLDz kU0iNBfuFqV0JPLoRaPc hX75wUMxLEvhEs7zcRzl dUhkHQ2mEKPishtm s867SrApg8vePDUywLPm PBavPTW8R20kg9Y5IYUa WCXuMKY6aKZ0sS3piSvd bjogbGVmdDsgdmVy uWxjTDslVZgxV350RSQg tHzhDeKnnTGjQ8fgtyIU IW5pVbnhsPH+PHRkIHN0 oFvkHUnqKJYsaC2y USExA6o6XzDlUnJ3LTfn P5WvzfO4SRIinKDhOOAi hAWSyM0dyhhnf4xstaup LqRqCPJlIKf7ZXd6 MVEmsQcaNqEkDQO7WqT0 VKK5fYYsyZ7tcRpamuak gD1xUpb+RklOOjwvdGQ+ HIHzZBF7yPitJRer CRMkpK6uTMInC6y9UlFv WuB2LKrzE1QddtY7EYSr hVDoASRsiIKVaL6oixrn m7sqdeehGcZwVNWc YKm4TBh4PKXnbOfyXrSb LYR6XrZ5KSN5eBPsmU5o tHokkiyamI6bUsw+TVJO OjwvdGQ+PHRkIHN0 wMquSCfhOWMceE7oXWOj Z3y7YmWmEgY7PZkjN8Ay uvI5LGBbtWCuDWUhqWEY wX0priaws2rzlhjy IjZkXWUfVJk9ZRj1RYVx aXkcPhIfFEN6DeW7UPS8 zXBdsL8gqLypjvottQ7c Oyc+NYW9OBL2IP13 XX07Q0ObSabalWVjgRM+ PHRhYmxlIHdpZHRoPScx KFQkKcTkaDnkTL2jIy5n ZGVyLWNvbGxhcHNl OiB (more content not included)... [facility] Coding Summaryon 08-29-2021 Coding Summary HTMLBase 64 OtkuctsdGTd6dSq+PGhl YWQ+RZ6KLROoT87doPUm cA1NZ5qDDP1LJFCLBFGI VM4WUI0ppEA0TEcyM9No biAv JbgepDFtBI96BIq0VSR0 mOzsSEemnM9pvMYiJ8s0 BgCaGQ89jN51ZGkpFUTy MpV1CjSwcaapoCLr S7jlVmHwvRJeGbs+PHRh YmxlIHdpZHRoPScxMDAl ChRvuScwDW3oQn5xRLMh LWNvbGxhcHNlOiBj s0wiYOWiAWphSS5lnYgu N8SrhYW4TMIca8s1Vv16 dHI+PFFbOVC7hPwqCEcj u244PwOtk4dyQZU2 xDSlJQdfECX8K17oe5E3 LYUfTUGvBFD1bGY9kN4t uZicohctX3QriXNmNrT2 PTC4wVXdrR2wqWax hnywlX6eQdr+V85XDO5W WLYWIQ2MQlq6H3MhKvwc dHI+PX57JYKrUD66xLDr tKEhf4kknIv5MuQx OSMwIAC0sRdoDLseh7It ZFYuZ92poULnq7V7GKJf xGpmuTXjUqZhwWK4iS7f RLsmgreaz2pacyhb Mhqwh0rzzi94dN25E74n RMtsNQEhEXN8VTQlHDOg gFmfcr2dpR5fNr9+IDxj y8gyn2ifgWf5RuIw YKYpnzHcyKuoFDP7q1Lx Dk78X2AdpDmfd1OfFpk1 ha16xUSzz7B8yYW8KGpv VWPpqK0cKZtkAoC3 TEPtSnEjeM65iQEbDZeq Wf5bkMsayLuqKV8zDDRn ysfcHTDjdB7kHZWmeFQj zOzoIV6nNGSilaxn q678JnGvASI4SQWzaAHr H0ZxoV7fLeAmUPDpUGKe S2LmpQCdZKpsG851OJgu DzF9ZHNenqBtU6Yj HRYtrGefEmD0y5H1Xe7N k8HdmujbLWG3GUqjTLNa RxVyLmHnPhC2L1RgKkd6 ACDhsXmsZB8zU3Uu HWRahbftudetnKJ1AHJi MBUqcH82aYUuJTgvBz1w p4Z2f162EZNeIMPrwA70 Gb7fpCqiRLBszOEC tC4nszgfl0ohxqfsHaZp PPVvEXs5PFr0EDTolNfq ZmAfYRD4UiH8JQJ7yOAa bQ4ngHvmpjrrzD6m Oyc+O79ydT2tXNZ6PHE2 ymkaUVYvjaPeMB60DH04 X5YvQwzxuNXvnUI+PGRp upZhfHwxZH1bWmXb h6iii7FuXCouP6GcATSc IZwaYqo1RLPhROO7oTD6 cY4rSSLgZCeld6O5tNQ2 C9KbxyTxua2qp7yp NQVlCBddZ33djGEup8W6 MIOwyDP7HUWukYsyYpZe qQ60Dyf+MWJljQbgn1Rd Nxnll3sml1qmnEq6 IjMwJSIgdmFsaWduPSJ0 h8JdUc28D27eIOtkLUNc BUWkKUVoSBGhoKsgsp8y kT8iQk3+PGNvbCB3 kOS9jO3qQUAtRsI9OKfi R838JgLlnIMiYzzat6zg q4cdiIr9GhLwDKUwayDl kSpuAIK3r9PbMb77 Z43gNBtcSGHyOMEtPPSq OBUegWrfbq5snL4pYu0+ BW2ra8gzso95gL62oBT+ ONGcTYG5zOmkZMdy KCMlkW5tEYalMbW2PCFr SdIbxO23rRVgCXlzTo9b tVvzmVkcUB9wXLWoswcg g210LkWfv7lwNDSs yFUgIQztNES7T22hn4S1 CGVbLNIsFUS7nPZ0aN3p bGlnbjogbGVmdDsgdmVy eJrrIOqjTIwuV961 IHRvcDsnPlBhdGllbnQg ZpMiPAm6S3KjEjt8MSWk aWliEK4bnBUzZNfiHh1x eWfquEzgON2dEDVt ljvfy973YaBcz7lsFMTt pXTzDSkqITX8B17nn1X8 QZZyHFFvLLZ8mKW7tH7h bGlnbjogbGVmdDsg ouTbaFxfFVqxLWviY374 IHRvcDsnPkJpcnRoIERh zLK8MI84BS25tKDln5L3 gKM8I8CzFJBibxuq qnjcyHF9GEBfNMSugP15 Lq0ekAazHf9hUMEgLDD1 EWOpzTOvR2HszF8uHmFo MDPzQUCsB4GdbSZl SPtmM279UAabUhS5DEWx hnPhF7BiFZAhhHcbZsG1 c1W6Pk7MT6X5NX00ON18 lQBmo9L4sUQ1M9Ys ZFNrfvmpboykmSA0MCTr GLSwoS38Hl8qwXmvCe2d JAVdRHJ6EWAvkFLmL0Qp bV6sKgRtDXWkZVWj Q5AycFMxKDgaI013CSnj IkX7DROevgJxF9GjQHFa vBoyZdL5q8X1Qj7FJUp6 IR94EB60eZVos9B8 dGM8Z7AzOCDxiatjxbcp aPS8PLTvEPBrwE73Dz3a wGrtGj7sBEYtSSF2QRZc xECtI3VmcF8kPbAj UFRmLBWkQ5OllAAwNAgx R072ZCelVpU4KDBwedNm Z6NqUJWaxZttPhU8j9A3 Ad1IXLApHG71XMM0 nED8DN93LE56M1ZeGnlt dGFibGU+PHRhYmxlIHdp ZHRoPScxMDAlJyBzdHls GA4cNr3jPANpGGFr jEcphOQuWpXaq5cuDCPe BLgdBM5yyWeoI4CckIN2 MLYwd8z2Ep52H39qO0Sf dXA+FMUncJM3lVR8 gI0bAvDqIhO2PEoeF550 NoMyoHFzHhwlw0yms0si uLz9OfA3MVViebXssRuz GQQ4v2MmEq89F48t IHdpZHRoPSIxNSUiIHZh uVqdwr4kfK3eSl0+PGNv kXS8lSK0cU1bPfUnFkW3 PJneI578TiStpPYs Wfitv1yfy8fxqRo4HbTk YSBihtTduGzkQMF8t6Hb Mp71Y4FnoDacj2CzXhk8 df14sNQzw1M2iYU7 F5YgORHqjwcusIQxnQut LS7tRHVsofhhZUAiqK5s NYWyZ8s6IlXvNmB4QHza P8CterD1ZMMyqNXj MTzcQQO7R03hf7X2KDSl EXMbXDS5dJD8cS0ivYoq bjogbGVmdDsgdmVydGlj TSzrRQrhP119QBFv fQwuTLSesY3fHKDcdJUv hKkdAT1wIVIoahuqFpNO T7SEB20TJIOBI6EVUqSf IOpPIZ04Z8ZcSzt6 UIXcjUzdHY4inSKdQSnv Xj2loRpzpMyaXK0bMOPp wuqjGIGhxG8xNQEibMZe yTktRO1wUZPfhilf l822OoKyNPV9HOCfrGBl X3HpcQ7wVvAbUSGhFWKz O4FaqIXtHMyhX968OGmp VoS0FSIopzVxF6Fn GOClvRwhAfN9k0E7Wo9l ME0xLz3mFGA4TS37OS83 iDCeo5N5fPM6A9JjSXPv cpaplfbunIZ2DYPd TJWpcE27pHImHVurHz7j p7S5a348XVSrBKTaeL66 Bc9etMzmYMPrsRMJrQ6a joqvo0vrqodzCpVt QWRbDVr2LOf5ZQXcyNxc SoSbBBN3RsK3PXV3iNCh xJ3tvDzxanaebW5lTha+ YULxSBTgpiO8U8Df Jeb6RRTomGbiWQ1wsQPn HIbvWs8pjMosnUmyQR6q OAZluqyyGJUvtT8kWHWp wRIljMopXG9kIAZo mjlaj650JvEmWMW5AEUj fBVyY5NloD6xEtHxIIYh QKDsU9TohUPgREwuX862 QHvqWnL7RYJabfWm F4PrIMYhfRknAaO0o2D4 Hm1RVAaTZD65CI54dITd f2G6nCE9G3DzOKYmgtev zrzyaOE5FCQlGHGq yP76mMOtPGfaQw7ts2S5 a767EHNqZZDpsF21Mf2t iVnjUUEbjXTVbS8tblwg m2enucrmJdMkRXUo SYy1TXy0WCMzgTirUaAp FPQ3YfS5LZN5wUNgzG1a nOhemlsjgB5vZsc+T1A8 Q3AhWwojwHJ+PC90 XAOxWR85nDHbcYAls0mk rBp6FjIwKLBeICN2wPmu JOaxa7DvVOYdH44zoDSx x9M7KPYegZjrxVLu LkVvyNT4sS0fTVflinpa j6axoizsZtmxb3rmlk01 aM83M34vDSkpNBMuHXXj ZXHnBQHicWmkdy1t uH3uJn9+LXNrlNE2oRH3 yN8sSwCzVxJ9RIhhC385 XcCmkZBsZzalz2mdm1cg bFc6HeKmNRTbfkUc cGpgVVE3z1GsUf76L69q IHdpZHRoPSIyMCUiIHZh bJlxql8hlQ1fKb9+PC9j s4kjcf68pD12wTK+ MMXzUOL4cMdvXMntWGCn jX8zRJiwRfQ7ISWcBnAl aW62vDTvGXoqDm9fdQax rAlcSB7xUCNpobud m033RyToa3gvFERqmCWg ZOyoIXC5U66ml4L3WTPd RVOcJRE2nJH7gT8ddQfk bjogbGVmdDsgdmVy oEmmYSiuGQphY175DUMr kFkkGvZqhNYsL4hyrsHC BV4mQlhlbQT+PHRkIHN0 qWvpFFomUUGzdU4k PHAvR6g1SuYbKrK8IVyi O0XrhjE8YNCswGXpFHLg yLBLsE6nhlyor1lvfenk MaSgHPYuQUt7RDf7 CONifLjgZxIxXLE7HzX6 LGJ8nSPetE9lzSzbpgjv mC4oFis+RklOOjwvdGQ+ RIZqCPU4nWwkGNgn RJEayG1ePIUqE4p3LqDm VtM7EHldU0PmyeX0AUTt lYUpGRSnuZGBvT7dvtty s6hsilrhPoAnLAVq VIo6WPp5HNUhpZaiVaZn CHN2EwA0EPQ9bQYxkU8k wBykkaybjJ3nGna+TVJO OjwvdGQ+PHRkIHN0 qTvaPXjbAJLzpP1aJMXe Z5s4RvPtJnD9IMlbF9Uc njS3XDSegMZbDNPygKXR nF8wiprej3fnsvyy XcJkGOYnZEm9VTy3RKGb hZptNdGsAGG0PlO8XVE9 gCXrcK2cfYycvljmhP6r Oyc+HHR0INU8GP55 WI69Z5HiMqiksJFthNV+ PHRhYmxlIHdpZHRoPScx ERLmWmZrwIcjYT1hYq9w ZGVyLWNvbGxhcHNl OiB (more content not included)... [facility] Provider [place] 08-29-2021 Provider Orders [id number] #1.00[facility] Rad - MRI Reporton Rad - MRI Report [id number] #1.00[facility]GTIFF [facility] MRA Head w/o Contraston 08-10 MRA Head w/o Contrast MRA HEAD WITHOUT CONTRAST; 08/27/2021 2:19 PM EDT Clinical History:LOSS OF BALANCE Comparison: None available . Sequences: Axially acquired 3-D gradient echo series for the purposes of awff-ec-cmhiic MRA. From this data set multiple volumetric [...] Deshpande MD 08/28/21 7:28 am Technologist: JERRI [facility] MRI Brain w/o Contraston MRI Brain [...] Deshpande MD 08/27/21 2:50 pm Technologist: JERRI [facility] MRI Spine Cervical w/o Contr indu [...] Deshpande MD 08/28/21 7:38 am Technologist: JERRI Self [facility] Physical Therapy Noteon 07-12 Physical Therapy Note [id number] #1.00OTGTIFF [facility] Provider [place] 07-31-2021 Provider Orders [id number] #1.00[facility] Provider [place] 06-29-2021 Provider Orders [id number] #1.00[facility] Coding Summaryon 2021 Coding Summary HTMLBase 64 BjtkpstkHLx5iBg+PGhl YWQ+VW3VYXJnP85jjKZg mU0FX2uBLX4OWFYRRUUK OR0ZJR7vgUG6CNymG8Jm biAv IxoovXMcVT25UJt5LGB1 qRmiYThdeB4tzSGjX4q6 DkFkTB38bV85JHdxQFIh UgE5VeTsvmcrzSWv H9mvWlCwuFDkKqt+PHRh YmxlIHdpZHRoPScxMDAl WwBnlKjiEK9iCb5cMRNw LWNvbGxhcHNlOiBj o0sfVDXeTCdtBF6qtDzy Q3LywVB4THXhu2e8Ew21 dHI+BDKzIMX9rHneJQvw y084CfSob3psIQP7 dANrTMfmMAI7I52ku2W0 XALgWVLkYGP8wRO1bO4l fFyobfjiA7VspXLbQiN6 QFH4bEAjlX6pbNlp yybfeK9hCza+G58ETR4D EHBHHX9SUah6A1HzDemg dHI+GT10TPNbTK25qMRr iORcm7dypMj1NdWr HRKeAMP6nFshIAxen3Vj LANvX29pxOJfq6T7PXMv bVonxRCfQwFzgHR0aM6o PRlloebxi3trcypt Dtzgz1eybe39lU38B15j BAbjWHRtMKO1GESmBWLn lMtkut8rnT1wCc7+IDxj u5cdr9tdxWi8KeOl SHDdtvEhcTtpTAW7v1Oh Uo56D9HytUwab3UqKqk1 uo10qVAmx5E1hBK5TVbk DMCfnO2gHSmwRfC6 RTRnNaErpB25mLKwSUxh Ml0nhKsfuXwkRF8kXARx schyBNCykN1vBTAlgLMv xDqiVN0jWAAtnzrw l918KuHnCTK2VLAoiLRy D4RfpD2mFmZaGCEeRURy W2VddGDdGBdcC636XExg EdK9YXXtuiMgJ8Ev HMYayDcpHaT6c9S1Nn1Z x5JvmcrfJIJ7HKcdSIQ8 UkE5RbFhYbH9E1EcVxx1 LZLyzRioJB2dI9Te KGWiatfxgauhtHX9VHJn XSQkfT54yPOqVKeqGx2z l8D5t837LQCqHNPkrB50 Yc7viUjeMFIcdOLP sM0gjyrml8jwvijsTrRm XFTuRWl0ZOd7MXLdxEka BzLdSYY7EaG8HSN8kDRh rP8waJigsdkweT9r Oyc+V96htE3kCCI6HWN4 nhtoAHGyuyXbXG55AN75 G0PnPlqrrMMyeTI+PGRp oqKdtCarSO5oEkHw g7ttm8CsFOctR0GjVRNi CFxcPjt7RCYwRMZ4jFF2 yI9rOHRdDZgnx4Y3gZQ5 P7OhbcLzzb0fz4bt RSBdAGmyX35ksNZvq9I5 XRZgiSN5KVWkhGdrLlCz jW67Bts+GUVoqBrph3Wc Jbjpo3hcb5uiwTf3 IjMwJSIgdmFsaWduPSJ0 p9IdEj34G14kNHsrMJDi UWMsKTJxXEPltDlllh3m hR4gPs9+PGNvbCB3 aEZ2kF7wEREaIqK6ADis P152IuEofLMjAecff4wn c1fseLg2KcKbTXOfgvAv nAquOTK7t8JnBn46 B46uTYakRSCtJXDeVEFw MDBggQvlxn2xnY7eRo2+ MU2ep6jjuh86zX26wIO+ RDQdMCJ8jJjeVBqg RSNdvX6uVHcyYcF7HRHi HoMkhP15gMIdDNwzZs9r nXccrGgeER3jEWNtdggq c873ImSsk7seBESm mIJmWPtaKGJ8F29wc5J4 VSLtWWImDXF0bUO3iB3b bGlnbjogbGVmdDsgdmVy bYclHRbhPIllF950 IHRvcDsnPlBhdGllbnQg RsOwRJp8J7RrHnw9QARe mOzuWO9ewZVgSLwfUg4f xCigsVjiRB2pQYQi fhkop902EyBsv8lpAEWg yHPuLWahQFE4T64jm8K2 ENYnEFLuWYR7sAU5jM0t bGlnbjogbGVmdDsg lbLtsAqhJAbaCRqbY632 IHRvcDsnPkJpcnRoIERh xTB5LA74ST41gQUgf0K4 eHC8L2AeETVmjvaa quacxVN5ONZbUPNbbM41 Sy3zmYlnDm9jGRXpBNO4 UGAqnLOlZ1MthI1vGzQm CUCqYMDlH4NtiHPy IMavP097KSjlZyH3TAAu fzByH2SqLGDhaFraOxS2 p3X7Bm4EQ2X8HD53HM85 wCKnr9O6cNZ7W9Pv WJIbwsrnwqrakAS4NUHa HRPjsJ68Oa4pwIqmAm2m PJJjHDS8UEJziMOsT8Ut xF7mOuMrWBAkBPPr Z6YqfIEcUDkaT098SStd UuC9UEGyzeOvH3AhLOAh oDjgWxF8v2K4Eg6JHLg4 HS25PR69bFOou2F1 xOT1F1KqQXRyebgjjvml yRI0UPMpBDJvoQ97Ge7b rKqpAi2iUSXvGBB3RQFn sEWyL4XoiV8xHdXj KPTfAYVwJ8GfbSYyZExv C377EBinHtG6IOWoqjMs L2CzFGGgvPwwNwC2h9Y3 Vf9RJFZcSG54UAL3 iSN1QO67MX26R2XfNruz dGFibGU+PHRhYmxlIHdp ZHRoPScxMDAlJyBzdHls VX6vCl3jSUNfUICm vUxtjGJoRiKqd5lnRFAj NMfvPG3fkLqsC0WjkFG2 CSWzs4j2We57X65qJ8Bm dXA+GTUobLG5uYQ5 lJ3xMpYkLeJ4BUguZ153 OvMqzPWfZhrum6nxv9cp eDa1EoY1JQYoafRgbDaf GGF5j5SwFe47B03c IHdpZHRoPSIxNSUiIHZh lHztku3lrE0pXc4+PGNv iTC1xGP8eQ3yOhIsIkA1 UTtqD734WrBacUUt Dzgbn1khu7qljQq7EoBe UDOjhhRvvEriTOC8c6Ln Bn24O1KuyMxvi4XbLap3 ma50lFOlw9G2eXI7 D1GrIYUslwbynWBsgSqx UV8kWKCficfjNKZayO8k PIRwM3t3GnLwNiO9CWdl T6EjedS5PEIkzDXf SXjlDXH4C12xi5M3MSYm JFVvGPE9iBW2yR8wjUeb bjogbGVmdDsgdmVydGlj RBrlVFabE022AOWr kDowLDVlmT9bWHUxoTTf aAvlLR8zCUTlqqaiEmIY D2LUE75SOOXNG7AEDmFk WQbPDG42J5VqTjx0 TRJxuPbcPG0maKDxOWzm Vx7kuGqfoWikGE3ePKVq dfwcRGKibO2oWMZdxQHc hXadJN2dMUOgvqqw s833NmVhNHD5ZSEtaFTz Y4NatI3lSsVrATAdIOCi R3OulUVdZYgnS763UMgv MmL6SPTlukUuQ9Ke ASMgzAxbRiU4n5H6Ee0n LS6lXf0mTZG4ZB45GF03 uLMmx6N1mQG9R1NsZRYy mxkdekmbmNU7LVSj HWGpvJ81kXVrPYsuHi6g z2B9f713VUEjBLXbuR67 Fz9utYssGEIoyQEEtW2m gqlpc7hyejdjYxKw FEDpBGg0RHz9XDFmrHta AsAuTZG0UaW9QQF5lZBa dO6hkJsoztfcsH5oLtr+ AUFpIKUveeW2L5Fv Gfu0PDXbsZkbTS8qvEMy JSckMz9gcMkdoLhpDL6k LOQrwevvFJYyzT2hJQVa qBIqrGhiNR8qDIKf bymya756RkLeMHT8ZFKr lTOuG5XfoL5lNqWvGVEe NNUmA5EvnSHtQUyaL379 LApmEqV0HLAhpaXr L9BvUKEtlShuFhE9x5J0 Xt0NQDiBSN66ZY47fDAm p8K1xIK5P5MjSZFalfgd hhcitHW8ZVMfIJAq zJ64zQDqLDkoKh3gr1Q0 m818SVSyGEOuzH13Uc4i wAfcZPLcnVDJhN9hvmgi u7wwsamuApOfTSSz GIu9FQh4SGBsiAoeMkJq GBS2LdM9SHO8eSCcgJ3m oBliwlciqF4xHey+T1A8 I2CzIudpcRH+PC90 GFZmFG88gUQytVKyt7wb vVy3QeYjTOGoLDX0kPiq CGejf7NoVHOaG55ebTXd e4Y0XMHggQccpHCn HoZdfAV2yO0pGGhkhgpt r0wuhsjsCfxqi1ggky24 eW68C71gMAuqLCZtKWHk RZLzFWUyjXfxkf4j oR2oDz7+KBUeiAM8qQI9 eJ6iGeUuDrR9DXkiL021 VvPkuLKeLpxnj7dwp7hv fEa4CxYtZOLqcfPm lMdaACN7f9JkWk08F34e IHdpZHRoPSIyMCUiIHZh pIzaxs9ggK3mHg6+PC9j w7bvvd79vA49uYZ+ KCWgJHG1hOliPZnnJUKn yD9hASenIcL6QNBzAeUf lF35dTGwBLyhSh3hrOpj xWwhPA8uAEDnxpgz e256OhJzq6cuNUKkmHMx DMiuXSN5K60fh7L6NSEy JXEtPUC5dIR3wF3yfUob bjogbGVmdDsgdmVy oZksMKfaJDwgK777EIIb cWiqVrFetYIgD4rppcZB KV7kXatbvEQ+PHRkIHN0 bEplXUvaEDEbqS6o DTRlZ3o5BxBtFgB4HNjv H7NfkaI6LHIcdGEuKPMn jGSLuL4hiwoal9laxwxg VpFuAOPlLQp6WYd8 HTDapEdrPdYfYHH0TwX5 VFI8eFOgoF3qpXgcrbxq aA6gTmw+RklOOjwvdGQ+ LYOqYEK9uEotTVbt SNOyhA5qNNNkF9w9IrSv DbT5EClhE4YwiuL5UKOz pGXdRWNghWXHmL9yxgnh f3dixqvmVaGyGSNn KDa3QNf6LVJhfCffQsNo UBO2TvD1MQR4dWNfzJ7u wVckxsdwkP7zZez+TVJO OjwvdGQ+PHRkIHN0 cNfmTMzsURTiiT7eCQBq D8r4IkLjLkZ3AJjeR0Cd nfV3NLAmcAZdREFgtSXC sD7kgrcte4phcqto EgEjUAJdFAm7TMu6MRVl wUkpMiPmRNA5RyS8RUH7 lIXysU7vyEfxnfxvfN7u Oyc+CAY9BPE8GL35 IN98X9EtZsxpkRSmqGR+ PHRhYmxlIHdpZHRoPScx ZTCrWkCxuLujFS4cVe3a ZGVyLWNvbGxhcHNl OiB (more content not included)... Normal [facility] Provider Orderson 06-25-2021 Provider Orders [id number] Normal [facility] .Auto Diff 106-22-2021 Auto [place] % 10 % Normal 12 [facility] Comment on above: Performed By: #### 1 [id number], [id number], [id number] ####[facility] (DEFAULT)[address] [place] [address] 90392 Baso Abs# 0.2 x10 Normal 0.0-0.2 [facility] Comment on above: Performed By: #### 1 [id number], [id number], [id number] ####[facility] (DEFAULT)[address] [place] [address] 72434 Basophils/100 WBC (Bld) 1.9 % Normal 0.2-2.0 [facility] Comment on above: Performed By: #### 1 [id number], [id number], [id number] ####[facility] (DEFAULT)[address] [place] [address] 38540 Eos Abs# 0.4 x10 Normal 0.0-0.4 [facility] Comment on above: Performed By: #### 1 [id number], [id number], [id number] ####[facility] (DEFAULT)[address] [place] [address] 20759 Eosinophils/100 WBC (Bld) 4.7 % High 0.9-4.0 [facility] Comment on above: Performed By: #### 1 [id number], [id number], [id number] ####[facility] (DEFAULT)[address] [place] [address] Lymph Abs# 2.9 x10 Normal 1.3-2.9 [facility] Comment on above: Performed By: #### 1 [id number], [id number], [id number] ####[facility] (DEFAULT)[address] [place] [address] Lymphocytes/100 WBC (Bld) 33 % Normal 14-48 [facility] Comment on above: Performed By: #### 1 [id number], [id number], [id number] ####[facility] (DEFAULT)[address] [place] [address] [place] Abs# 0.9 x10 High 0.0-0.8 [facility] Comment on above: Performed By: #### 1 [id number], [id number], [id number] ####[facility] (DEFAULT)[address] [place] [address] Neut Abs# 4.6 x10 Normal 1.5-9.2 [facility] Comment on above: Performed By: #### 1 [id number], [id number], [id number] ####[facility] (DEFAULT)[address] [place] [address] Neutrophils/100 WBC (Bld) 50 % Normal 44-88 [facility] Comment on above: Performed By: #### 1 [id number], [id number], [id number] ####[facility] (DEFAULT)[address] [place] [address] CBC w/ Auto Diffon 1 Erythrocyte distribution width (RBC) [Ratio] 13.2 % Normal 11.5-15.0 [facility] Comment on above: Performed By: #### 1 [id number], [id number], [id number] ####[facility] (DEFAULT)[address] [place] [address] Hematocrit (Bld) [Volume fraction] 45.3 % Normal 34.8-51.9 [facility] Comment on above: Performed By: #### 1 [id number], [id number], [id number] ####[facility] (DEFAULT)[address] [place] [address] 04585 Hemoglobin (Bld) [Mass/Vol] 14.9 g/dL Normal 11.8-17.7 [facility] Comment on above: Performed By: #### 1 [id number], [id number], [id number] ####[facility] (DEFAULT)[address] [place] [address] 42985 Instr WBC 9.0 x10 Invalid Interpretation Code [facility] Comment on above: Performed By: #### 1 [id number], [id number], [id number] ####[facility] (DEFAULT)[address] [place] [address] 70817 Man Diff? Auto Normal [facility] Comment on above: Performed By: #### 1 [id number], [id number], [id number] ####[facility] (DEFAULT)[address] [place] [address] 11269 MCH (RBC) [Entitic mass] 31 pg Normal 24-34 [facility] Comment on above: Performed By: #### 1 [id number], [id number], [id number] ####[facility] (DEFAULT)[address] [place] [address] 92724 MCHC (RBC) [Mass/Vol] 33 g/dL Normal 26-37 [facility] Comment on above: Performed By: #### 1 [id number], [id number], [id number] ####[facility] (DEFAULT)[address] [place] [address] 98490 MCV (RBC) [Entitic vol] 95 fL Normal 81-100 [facility] Comment on above: Performed By: #### 1 [id number], [id number], [id number] ####[facility] (DEFAULT)[address] [place] [address] 62974 Platelet 295 x10 Normal 138-427 [facility] Comment on above: Performed By: #### 1 [id number], [id number], [id number] ####[facility] (DEFAULT)[address] [place] [address] 46779 Platelet mean volume (Bld) [Entitic vol] 9.1 fL Normal 6.3-10.2 [facility] Comment on above: Performed By: #### 1 [id number], [id number], [id number] ####[facility] (DEFAULT)[address] [place] [address] RBC 4.78 x10 Normal 3.70-5.30 [facility] Comment on above: Performed By: #### 1 [id number], 8498836, [id number] ####[facility] (DEFAULT)[address] [place] [address] 53997 WBC 9.0 x10 Normal 3.5-10.5 [facility] Comment on above: Performed By: #### 1 [id number], 8449232, [id number] ####[facility] (DEFAULT)[address] [place] [address] 51419 TSH w/ Reflex to FT4on 06-22 TSH Qn 2.41 m[IU]/L Normal 0.45-5.33 [facility] Comment on above: Result Comment: Gene ral Population (males and non- females, aged 21-88) 0.45 - 5.33 Females, 1st Trimester 0.05 - 3.70 Females, 2nd Trimester 0.31 - 4.35 Females, 3rd Trimester 0.41 - 5.18 Performed By: #### 1 [id number], [id number], [id number] ####[facility] (DEFAULT)[address] [place] [address] 85228 US Carotid Duplex Bilateralo n 06-22-2021 US Carotid Duplex Bilateral DUPLEX ULTRASOUND EXAMINATION OF THE CAROTID ARTERIES. COMPARISON: None. HISTORY / INDICATIONS: Evaluate for carotid stenosis TECHNIQUE: Bilateral common carotid arteries, extracranial internal and external carotid arteries are evaluated with hogan-scale imaging, color Doppler, and spectral analysis according to a standard protocol. ICA-CCA ratios are calculated with bank representative peak-systolic velocities and recorded. Vertebral arteries [...] Jules Tilley 06/22/21 2:18 pm Technologist: [facility] XR Chest 2 Viewson XR Chest [...] MD 06/22/21 3:55 pm Technologist: SE K[facility] Coding Summaryon 05-23-2021 Coding Summary HTMLBase 64 NagfoobcDUp7hFc+PGhl YWQ+OU0TSZYfR58eiMZe cM0PP0nKTH3SGDRGDTFM XT3GJZ8aqLA8HOyjK3Wu biAv LsxszBIpTS26NTl6PZI0 kCgiIHrreS8xlYQyO3k7 FjMoLZ95zV51SBhzAGLb AiT4FcYgouvhmLOs A4pyTuXpaAOcKqn+PHRh YmxlIHdpZHRoPScxMDAl NcRahYzxEN5sPx2aTZKe LWNvbGxhcHNlOiBj i4xrQIViAJgqVL8bcElv X0OifGD0BOCiv1g4Pz80 dHI+DQZbMLA1fFrtPVce h831BcKhz3ybDVW2 jBPfXYavPTT7Q49bt4F6 AXIkPXYyKOH6wNA5lG6q zGtgsookE2NloKAeOeS3 VUR9bEDzvZ3xjGbo bdmdiJ9oIph+D57RHU3K KQIGIP1RSwv3J8BoXldb dHI+VP00PGKuZK99lRXz cXQkv1sqaJr6WyGz RVLsXVN6nCxeIWnup0Rw ZKMrQ40lgTXpn0U1EFOv uAjudFHiCoEfzLK8kC3q UQdcfpplt8nrumjl Ixcom3bhbl22iJ72K58x FPtaNZLxRUP6UOGyEINx xRdpav6evF8qXg0+IDxj r7pgp5bbeEg2XxZo YTKkxoRvmBymAGE1k4Af Hm81U2RheErab1YxNpq6 sx02oXDjd6H3vSQ7KGph YZNggN6wYCtgTzJ1 GNVcLbGvpW51oFRfVItv Ik6biShzsDkhRJ3wOCAx jglkHRNosP0uEMKwnNWe lCmhOT1lUUFkvkzo k536JnFoWTY9VATnbHHk O5LmfX9aAjCtHAPmYEWx Q1BrrBQhVZqdA770WLyt OsI7FSKlzcZzL2Qn YSIzdCyjYcT2u1O3Fw3X s0FpsfqzPBO8WKwnVOZ6 VmS0RcBzPdZ6L7WfSya7 YPNmlVclNX2yT2Da TMYphjyxhivbzEC0KNCx VMBbbB51wBUkZPifZg1l u2J0r862AHWiPKDnbR52 Wa6nxIhcZZAicWOP vC2xyeowu7kwklxkZpIr WQWsALi5BKd9QUAmbGho JpJjSHV8PdE2XFB2kACv jF5cfWdqwpkmpK7j Oyc+A81lyZ4pRMV6SGL0 tnobXFYqrqOwSK10CR45 N7VlPyzszYHpzZC+PGRp uyMztQeqAE7pQuOw p0twn4QhWQkvG1KaUSYz ENaaRno7UCUcTLU9oOX2 eU3aYIWbDEldc7C0zAX1 E1XlrlOfkd8qs7oh OOFpSCjnE39vqENqg3O0 GHKapTJ7UNPkpNnlCjMu nR18Uwq+YOJkbTjzj0Gn Xvytk0foe3lkjYu8 IjMwJSIgdmFsaWduPSJ0 v6XoDl91S85rWEcxATVi AHWuZWWwXKSekPniqz8n mN7yWu2+PGNvbCB3 hHR0vS4aMBLaGqI7OTpc V971CpHdsYZzZjgkw5vf w6mfdEa9HxHtKKWbfkVh uTxiADQ9e7JsZn69 I16tDEqdAYLmEHQcVMOl GQRpiGmzra4krT7pVc8+ GR8qg5dacm55kF29kFS+ YOVvREA7dGhpOTcg DKMmyO8sHTycOlZ6IGHe JoLtsH90vLQpDNxmHe0l oTgjsTtyRP4sOGIahszd f408JcWfp9vrDKRd zAZaURksYCJ9Z88sy1O0 QXHyYIScOHG4aRA6zQ3c bGlnbjogbGVmdDsgdmVy oPzeAJzjHOsjL238 IHRvcDsnPlBhdGllbnQg HqSiUVr1W7HhKug1JRZy kXhdHQ2brPUlKOcaLg4f nFtggUprWR6qYMEp hilbc313EyZji3dbUGGi sTRuBWnlERV4C81cy6O9 QBPhETBqUYT7nDS1uI4x bGlnbjogbGVmdDsg mhHhyZoqLUmhUNyxG679 IHRvcDsnPkJpcnRoIERh oXL5EO56ZH01dMIfr4L4 vYN0K5VhJOMkvovr wypclNO9OXZbDPAfuZ86 Qp4evSttCn7uBCUtFSE4 NVCnrULoB0VccW8qXoBh KZDsJCLyU3QqbMZc EIebF562QCizJuP6DSAf vnMjR2HcRRHbcXdjVwA8 n9I8Va5IV6Z4NV78NO81 dDTed7D3wKV1P3Tg ICRcsjhutlhifSF4LQOi FRGefV39Lt1rtMstEr9v IYNnUKU5YVTlvEFrB9Bq oS1eZzZcMMQbWIOn A9ZqtOMtONwdE182WYhn QjT9UEVlqpKzU1ZjSWBh bUtiFsB9h3D4Hq6KTFr2 RP78PV90pDAub3M6 bMR4G1MnVTFdmjwrullc yUS2YEYmQFKxbI52Hz1h fDacTz3pAMBpHAE6HYWu yVXdH4JwaV4wRvXd OJNzMZGiI0JxpECtWInj Z031WTdyFiF8VVUyamGv X0XpCYKyoHnaYuC6v5F7 En8QYTZkMG04HJE7 qNH0HG42YU69Z2YrUxmi dGFibGU+PHRhYmxlIHdp ZHRoPScxMDAlJyBzdHls YP1rRi3pONWdQRSq aIzssPLhTrXhc6msWNXa CAzgFT4xhDzoY2UnkGB3 WMEab0h6Sd44F05cR2Ga dXA+HDTueTM5dVZ7 hI4uNjLpOdQ8QXxqG924 CiRlfBYiAuzui5bja0ep fCb3XbN1STKsxhHarBsr NGV5d6FcSt42Q93j IHdpZHRoPSIxNSUiIHZh sHbigc5pyD6pXg5+PGNv hRY5vSP8dM9wGqOaGjP6 UCtsG049CfFoyJMu Kascf3dfc3fulVi4ZuNg TOLcjaNtcShzGUN0p2Vq Xk88R8IjeCvna1UfZot5 si88xXMpj9H6tRY5 I7KgKZHdndjzqPMxfWmi GU2gNGNzhnfcDMLmwH2h QLJnR4c0YnQoQiQ3ZAgg P5OrtdN8SOLbwHKo ROzxOUS6C60xj7J4CIUo KPUrESW8bUQ8aD6cuPko bjogbGVmdDsgdmVydGlj FIntIWleN546EBGg gXspRIDxqA6oZTSzmRBy cEolED1eXMKwkndnQzQU U2RWK41DNCROI4EZAgPa MOdAND03G1UwImq6 LBAnaVvaFH0ysPHeTNes Zj1aqOrdsIphEC7iSNPd knhaDTLlbK6uNIQnpNQo gZvfGR5vHSYbomsj z103LjFzGBE8NNBsmDEg Q8RxqB6yZdEuJGHnRVTi E8BwyIQeHIbhZ188PEif WeS3HVRtgjOnU8Bn JYVaxClcMxN4i2D0Tw9i YZ6oWc8eUNA8PR40YP20 jLNwm8B7tPG1X3NwYIKc ewlulvnxpJQ9OFEa NHOeoK50mAHyNCplFd6r u0W0r249VOLtETMhdM32 Yq8loHdvNNTizUONiP3c fswvi9fhvaiyIdQb EBToQRq6JHa7LDRgrIra JlLaURR6HlN7GNZ0hEBr fM8xuOpvkcimtP3aEeo+ WYCwBPVhmhB4B7Ts Psd0YVTuxMffLC5rcUOl KPldIj9zxYszpSpsBJ7c IGOrcfheYVBpcN0wRIXw mSSymWcdCV9fYQFq xcftn443LhYeTKE5KCIc nXVwU8OvtS6lJzDwWRUy BRJlV7PbcYLyVPdlA666 IMjeLtV9EKPdvoMd X5MuFWPxkFtbRlU1x7G8 Lw8BHWiETA78GK33gBEk d3Z7iSO0R3AcOPGmszyq svqfaFR6SXReQXUx oZ05kLYsIXgnTz1ok2H2 c496NBEyJQGeuH98Dx8d tXgtDMYtuYHZrY2olhht i0xbkzvvWmCjCVNo EIv0TUy9ZTRllHhoZvMb RLQ0WwI7CCB4wJHkxL0m kQwtvjpqcO0fBvr+UmVj yAJnrR4kHB17qZWg oNrgfiR4V8MlLyamdCT+ NJ99FDLkAV63oQPytDBt q3qdcFv2WsZaTQTxLYJ0 eHqdWZdjc3WiQTNq X36ehROri1S4PVTbxJts rPPdVcTinGH9mC2mTAuy mjbzr9oyokqrZldyw1jl nj55qC35L15kLAqf ZHRoPSIzMCUiIHZhbGln fh7coU9xOa0+PGNvbCB3 dKS8qM4aYuTmGnP3PNdm X630GzDuyPYlYunu v0vpv7gjaZy4MoJaNEQr elXljZffERW2u4AyHk36 R31wMKdbFIPyVCBiZSSe UKHwlRhbuy8baG8c Ii8+YE0xn6dfew08dI46 dHI+EZXmTJA9eNliBPbj AXCmgV7mMRymTzA7CTDv GjZnwV66xMPzGNwy Hu2snDskxQdtGD3cUKBv wmtxh963SjOji2rmHSBv bTQuCUzrGRZ3A53ju5M9 FUYlLUOyBEC0mLK8 gA9guUdsewmcfOAmgTfe duSqcVqnWDhoULqjS327 NKCmjUvkZiShsXAvX9ll wvFJTL9lHvhdwLQ+ SOSwCOZ5mIaiJOfsHKGh eW0dZBBhJ8r9OdRkQiP0 QNrwU6HecbS9OQWvaFPh GODbtSFMxO7xdund q6uvetkiWnVzJSAqHNe6 TXw2VJXilIcmQxKgPXK7 WyZ6RUP6aHGzgC8cqFqp hcgntM4jNdb+RklO OjwvdGQ+YTWoCYY7dAcq SFhlPBBzhZ5oFNWdI7d6 EgMrWtN4YUymE6GvgnG3 IGJvbGQgMTBwdCBU wB6mxeqrb8totykhXiTo ZTEzNMf4BNo9CTKkvBhf BnVkLCR0MtK3EMH7kSMa kV3moOnxmddvjE8p Oyc+TVJOOjwvdGQ+PHRk ERG1qGsaPRybKWSfaK2p ZLBiZ4d1FrWcUsI4VEqm U6GmmfQ8VNFvxTQa PVGpmLELsB7ukhluc4cz mmycTjBmGFQiSQe8FFn9 CBVszFhyZbBlUFL2OgK7 QMO1bNIkhR9sjFdj cduovP0qOae+HFI3PGH9 QR69AU26W2AlUwwpeUTr bGU+PHRhYmxlIHdpZHRo PScxMDAlJyBzdHls ZT0 (more content not included)... [facility] Provider Orderson 05-17-2021 Provider Orders [id number] #[email or web address] [facility] Coding Summaryon 04-27-2021 Coding Summary HTMLBase 64 YyrlzowpAYk9pBc+PGhl YWQ+NN7QYAVgQ53eaNOu tL7UU5gWIR9IEXXYALFQ JM8HAL9vrCN8HDwxR1Mz biAv GvlllNNgUN69NPa3HBR9 pQeaQWsejY9xfUGyJ2g8 XvVtPM25cS27NVbuSGDr UvG1NzVtznqcwEXs N2gmQjFrhGTiOrz+PHRh YmxlIHdpZHRoPScxMDAl JbHfaTjsIY1hRx0gWYKj LWNvbGxhcHNlOiBj b4hnGHXsQTfzIO9cyZrt W5VybEL6FMPau6i6Vc22 dHI+GUSdKSP4xVscLKca r420NpNjn0edLWL5 hTDjOCkqSEW9G74qu2H6 RPVeWHWhRQM1eYX5iL7f pYsdhjnfW6MqdCPtYbW7 FWE4mWCjcT1bkEpc cncnvS9vFjd+G87QVP9K DYQXNN4ZOpq7I4KmMdds dHI+PC57SQUzCK30uXCv aVNmh2wbkLo0WeJx FIBsLUO1dVgkFAiuz0Fw JPSpV46ojLMzg9B3NTTz oCwyxALkNqZzbGZ9rG0a PZalzrejw5ydipqz Dyhny2gfvg38rQ05A68g ZJarQZCsZGM4XBXvXIWl wEnfln5fsD5oPg5+IDxj s8fvp2gfbAx9XiKg NYRmmwPvoWsiFYU0o9Jq Yj97F9CzfWxyf4VvAqt2 qi23vLOsk5W1gAF4TDeu ZOFhiE9kWPlvXzN0 YUKvCwQnkR39gRQxMVjg Uy6vrAhoyGxiWC1oDONq zvvjSYVejR6uLVDkpPCs cFgnZT0dXPVtltlh z626GtQxARM5PUDctUUo G0OpeP0jQgKiNLJwLWRo X8PdzQSzRGliX293QRnl UgV8NMFvnjBqD9Ik BVUpiEzrQwO9a3S0Fq0W z6RtmuydADD1FAdyMZF4 GpH7XlAvScA7K9BcXri5 XMFfzYktVX7gN5Yx XAKfdhyukujgiYF2ZAOl XYAypF69gZFtZKrhRj6w q7P1w360BYCuPSQdsY54 Hs0qgYcaXUZkcNVC bG8fwfovf6munrakUhEa JJZaZIs1IDc1PKVrwVvm PjBoCLJ4GbM3PNC9cSTr aC9utZdlsbwgcI9t Oyc+T36bfU3kAYZ0HCO1 uffkTGKnbuPfWK65FD94 V7JsWkbneFEceOS+PGRp nfUwwTvaBQ3nUgKx y3wyl8YbGFrkQ3GtTJPd QGryCby3IXRqOFY2dYZ3 kJ3uKOLsPYvhh8Y7cCQ7 X9AvghXqrc4ol4sd XWCtNZcmS27pkPHtk7X9 OZGecDH0EEQbtVprFgWo qS38Fuj+QNDljNzca3Mw Ceblb3sti8bqdAr3 IjMwJSIgdmFsaWduPSJ0 u6EvGc67T62jUQmeZNEd TUKaCUDzMMXogGlstv8a rV4qGn3+PGNvbCB3 pDC1nF3lYVZeSqX2YKfs D914KcRszXUxOnhtx1fv i9zxqQc5LyIkTBLlouFx iZjsZTN0x5JjOt86 V56yADgqVTFxJUQdUKQf SXHtwVkbut0rdA2cNt1+ HO7ml9kuwr02yV20mAY+ HXHlSEE9rWpqEUhz NGQsiT8pZZwtGkT6WIZl NnYlpX98zPRrRMztPv8g iRfkwBzfEA9fEYKpprrk m075OhVke7zyCUCb pYScBMpqNTR3H30lb6K7 KPDxXYLjQRL5kPK9qM2m bGlnbjogbGVmdDsgdmVy gNnbLVoxFElmW081 IHRvcDsnPlBhdGllbnQg QsPgXJw7C5ZpYuu1ISWu jCjlOJ0syTHdECixVw1m jQbxuYstZL1nDEZa ltoup283EhDvl4zcYXQr wQUdIWunASW9W65mo6A5 DRVxCDKoFKY1vRJ4wS7z bGlnbjogbGVmdDsg obSntBhtDMrbHAyhY371 IHRvcDsnPkJpcnRoIERh sXP0KL49NI69hXNur6W6 lHZ0V1IoFOOlopnq vdzmlSE6XUIeCZHfjS92 Cr6phMjrUd1oSVBzKEF2 PTQiqZWgF4WpdF2xFxQf TTCtSMTyN8HohUWs VIpvZ896LWerJbQ5WIVc eyZuK8VtGHZuuHksIcI7 v7N8Ys7QA7M1GD01IG25 kBXek8K8uOR2R9Us IJStdxyqpgusoLC5YDSh XAPlhV87Ce0jmIzfUk0p GQUbXMJ8RXEesTYxD2Eo fB3sLpViLNGlOHQi K8CbdYBbXVkoN885WVpq VjH2QHRszzUcW8FfCJNv eBpnPcM3o6E6Lc3ULHb3 AC50MW00rEVeo1O9 bON6M6XzIQUkymcurjko sVJ9CIUsIRFuoM27Fu4n wCxnQe9xMSSpQSG4HCTx uXEyN7RgpQ9cSsQe PKMwZEPfR4DpgZApOYcb N510RTrdCgB7YWIovaLz D2FaHHRopHjmTyN5z5Z7 Br9KNKHwAW73NXB0 oSR8QY24IA85G8UvAbub dGFibGU+PHRhYmxlIHdp ZHRoPScxMDAlJyBzdHls QH9vJm7nTTIqFWGo aMnmzNJyNtNkl2asQPMa KVpmQF0qyFquF1SwiKF2 HEZet0h9Sp68D70kP0Sf dXA+STBqfGI5wXW5 eN2fHjGbIwC9OOpjU186 TjPxqAHiXqrin9mwo8be uNx1PwC6XXBzawXygWsq KNC7h9FiJj95C66z IHdpZHRoPSIxNSUiIHZh xUqlfa3lkD4tDb4+PGNv cXB6rBW6dJ5lGuAeNdE4 CUyuG363YrSynJGn Jraqq5miz1jhcOc5HmGc VAFrmcEkqGgmHXD3e9Az Kl55W3RykMunp7SzXly6 yl39zZAem2R8bAI2 Q3MtUGDdghphdTVqnPvk MO2kRVJoghwoEBWstZ2f ZWDmW8j9MpWhGkL6GWdu C7FcykA4DXLozQRu UQojTBY8Y48cj8A1PVQu MTOhFXW6rQD3oZ2stUum bjogbGVmdDsgdmVydGlj NJjdDPadM267DUIt zUurGLXdjS9uFOGfpVTo eRqwUQ5wCMQojwvjGlVZ V2SIA86GIWJJB6JZJxDa DJqJVT33R6MhSsx7 EPCwmUamBL7peONmYVss Ou0vcQvpsSgxEK9iAKMz lsnzXPApmH9qRFPjdMUy sMgxQK1xNMDptddt s278ZnXeWSU6XWUkvNHz I2JayP0nFzHgLTMtRDAa P0ThhLGfADzeM731ASqc YeH0PGVyjhCbJ0Ke GHFabSatKyY3d7J6Gz3g JD9zNm6nZII1QK58DP25 rMPwf8P4bPG5B2IgFNEb jlkzasyyeUD6BWLw JLWopE77uMTqHMcwHt2m f0X7b359DBIpTJSgpK24 Go4ffJeoIAZwmPPTxE8t ahgdq8eajbmkPkXc HHAzGNf6CFk1UHOevEhm SkVgXIH9BlG6NPS8bMJx qJ4doZfrmibfwA3lWzq+ BYHpVQFppeE0J2Wa Wsj8LNZcnEtcLQ6vjZEu APykOu3gtLxwgGdvWY5d YPViohfzTUDqvS0uZTKx wWRjoWzfQY8vAMEx allll465CxKxCGH2TGLo dUMtK9PfdV3fDmWfHFCw NQCmK1AefYBnLVilU578 RKccQgR4QTMfjdGt D5TqBGBkmZqsGfO0o0D2 Qu4TXUxTJG86OV81jNGs d9H9gBQ8M5YfRIXhkyft glrsnKK6UXPbQGIb nA76yYQoCDkoSp3mj4M7 c067YCRuODDyuT59Sc6v oUvuNLJnnFEVaZ6rduyi u6fawqlpJxJxOKAi AMg9FBc6HJEjmZivQbWs PMY8WvB0VBG4cZFpdQ6l gBnerqgrxS7rHsf+T1A8 I1MbNduweFE+PC90 WCNkZR31rSUmwOTrm3br tMr7VbYmQUBrEOJ5aFml UEoko5ZnTGYaE70bqWAz r5M4KFTpuBfpbQCj IrLqrXE7gJ3oMOoqtwir x2sldiivHefuz1utjn53 mJ75X37hHTntYSCoJYBp YRYdZGJgnXxtsj0i vN7kQx6+BAZzqKC0xXA6 gP4rDoHvYdJ1OZapI650 RaEgeHPdGsscm1oiv0iw tXw2YbYyWQJhzwEx lSavHVW6h4WzXs97C18i IHdpZHRoPSIyMCUiIHZh wFhsin7zjI5oSf0+PC9j h0qsvh80sW26aLD+ AYVwKHF0mKobKDrpZNVc aB1oSNvkYzC3GPLcBrKy iR54bQFgUMiuLk3htJlw iPaqRZ5yVYFwsjre c143FfNxc5buLDHnmLTr WBztJLM3S97ll0L2QGLz TSRpVJC0lPZ7gQ8hhUnk bjogbGVmdDsgdmVy lCskCRbaSShhW601ABRp mPbhNcWyqNWwS3rmhgEW VR1rMdmslRB+PHRkIHN0 jVjjMMouAAQjyK7q IWJvW3m8BpTaRlS9LOzz Y2ZhxxO8RZFfjEWgFNSv vQNGnY6bdloey3llvbub YzHzBMNxHPu8LLk2 QOUusIzwSfIlRFJ3RoK8 AEN1pUGgtV0rtXyqzccv aS9gEtc+RklOOjwvdGQ+ RSZxAHQ6fYziYDvx LLGsiL7hBLNpV2m5TaMf NpA5WUilA6YuqrZ3GOIt dOMhUXFlcZNNuN0gomrg x6dwmftiJzChSELm VMv2GUq8GTPunKhgYoGu XVD7FsY6DSS6tNFceS8a zXjbysakuQ9oShl+TVJO OjwvdGQ+PHRkIHN0 wLcrANnuIHEjpL0wUDBw O6v2SzTtTuH2VAltR1Ra geT9PROzbWJeSBChnWIN rL8iadyjl1cqwuxv XxUdRNLaVOg9CHc7FCJs mNpnCfNiHOU8IwR4LGA7 lIDvoY9pcIrlcizekB9t Oyc+QSY7LDC0CI10 ZD42W5DbIoucoJVxsWG+ PHRhYmxlIHdpZHRoPScx IFQdPaRjdInbAG9rMe4v ZGVyLWNvbGxhcHNl OiB (more content not included)... [facility] Coding Summaryon 04-06-2021 Coding Summary HTMLBase 64 TftvqmhfSFb8gKd+PGhl YWQ+XO2MKHMkH76uqQZy xP1CI5iPAO8FFRVGTNDO IO1CBT2kwJN1DSnvE2Sg biAv TnnoeLYqPB66YAf0VEG2 tIobBXgmgS4gpQOrY8h3 UjMiSF81eO68BKhvZOVh BwQ0MjAnpckgaZNf N1blTcXgoYDiQna+PHRh YmxlIHdpZHRoPScxMDAl FjUdcDvlKK9aGn2gCOPf LWNvbGxhcHNlOiBj d6wnKFOcMLcqFJ9vtXkj H6MxyAX2PBOlc6g0Yx81 dHI+OZPfQAF6tRksEEhs v887VfRuk2vsNXR6 sKKpAIytIXD6Y24ev3J2 OPLxOUXoYKW9qDY9kY0t vTynqzebR5FetUIoNmR1 VFK4xKOrqK9duZpw mcnylD0bWjy+X53CWM4F IJJRYA5YTtr8U2TnXlok dHI+WE71DGMuFL95dZQu hYJbm0fdvTx6SpTy VRHmZEX2fIelFBjwd9Kq MXUoD38bfNHpx4Q0TXHk yCpljIHoHsKcqLM4kW3s QBsmbwwuu2apdkpa Yekxp4vgdi46jM77N58h YQhpIKBrVOI2QVLcSHBe fMbicm8bfU9nRl5+IDxj n8cch7tczGo8UeYm SMRgxvGsoRmcHPW7r8Ck Yc79W5GifNexa8PoMnk1 rq69oJWoo1Z2bTG8TDrk EHUxnN3pNQhrXfK0 DUVcQyPwuK31bTAfONzu Ns1ggSgpzOkdLY3aMBBm itnmTODlrP5rEVAobYId hGtlLA1wBOOijqkf a040YwNkBFO8KXCsmZTi K8GocC1dEnRdVITiWGRh W5ZomRBoVCedJ543ZHgq EdY6PXNgtvVdA5Ey SAIgcLqfZbA4j8O6Pf8B t3RhavicDPC9OZhnRJR2 RsH2NaDoEnR5H7JzOvc6 EIOtyIonZI5cO3Ae OYNztiznblhlsUM7CIQl RJWrgX62pMCuZPfvKx5g h0M5b457ZWTyWJToxX12 Mz9muCrbFPSnyLZK jS9zomzio3wqgvlzSpFl IRYsGBs5VFq5QBYqiSlc BoEtNNK5IeK9SXS0sHNy sK8vnPibnucwkO6q Oyc+W05qhO9nMHK8TOH6 sckxRPNgziBdID82XD49 C1YnIfkrcNWvzRH+PGRp yhFlmAnmXX1qFuYa x5mln0LzUPvnV9UxLJIf UFagVfg1ROBfRME0kRM8 fA7eAQIuYFsyq3M9bEL1 A0MlczIagv6aj1fe DWJhWPrrW65bxXXop1K9 RDIljJT5AUDbrLebQdSw sC17Uay+WFRmaRrsx7Oq Dnkob0vbb2kidLp7 IjMwJSIgdmFsaWduPSJ0 c0PsVx72I48zZRldVYAw IOMdQNAdWXJpfGpurx4i gW4dGn2+PGNvbCB3 xTN5lW0iYEQsAgN5ULdz K759BwFgyRGnAozfx7ph w2jroOu6OcScUMBeecRh zYamCRM8r8WoAf90 Y27uFBgdEUYtAOGxTSGh DVDpgLbtks1njA0qMn5+ DQ7zp2vnrw01qE22kUL+ KWTbEUV6zYvbDCln NTJwjA7wNUbpSlR9ZFRp QgYscM59dCUzQMexEe6m hFtprZtpHA8vZEThuzms o986EtZmk5ofLGWv zPLuHJhdOEM5H74vl6O7 DTQaTTIeXSM0pDA7iG5o bGlnbjogbGVmdDsgdmVy vKewQWekRMimV623 IHRvcDsnPlBhdGllbnQg XdFvHJj2T8NfCos9WHOm qMwmPY2pbZMkBSeeDg2l xFwgcJznOH9rBFVi fyshp718QxCoq4dvRCCh tUBqUVhfCZO8L48sb0E8 JOBeIOOnAGD3eGX3sT4g bGlnbjogbGVmdDsg ljMzbUthZAvpJFjwF970 IHRvcDsnPkJpcnRoIERh vVK3KE58VS49rQDyc0U4 bOK9P9XaXPJfulkg ixhoqEB3BNImMOXzkD46 Kp9bjNjmEr2jYPXfJKB0 GAUqqTKgN8FunV6iTcVg VOQvUNEjN0KqtOGh KIfoB469BWatCzP9SPZv urVpA9JxMXLpxUfbBaH7 l3H4Fb9CG8A0DC22NQ84 yVMhp2J1tLP7T1Lu ZQRwixtsgoyczED9LCUm OQZqtO99Pu7ypQbyDz0c HPNnENO9TVGgdQDmQ7Nt hK5tHfQoRKOyKLIn D8OkxYAwYYooC544JMtm TkT7OKSttjIrW1OwOEJi dWjgIxO9p8Z2Vt9OCPa9 HW73IH12kJJgn6U2 qDN4S7ZlDVCezehemrjw xAP0KPMqSWDkzR09In8o uZzwEx6pGTTnVWQ1YLTz qCKtN5SafR1dXgJv XJEsFGWpC5OzqHWzZTqt J968GFpbRxD1JNCzveFn W9WcAJXwhAwxFlQ6i7D2 Bz3WLAUqNM12YHH7 sZS3OL64CI22J9OiMjnt dGFibGU+PHRhYmxlIHdp ZHRoPScxMDAlJyBzdHls RH0tVd6bLFCwEGHo mWnawKOaUlGbw2vpUBFq FKjjZE9dmTneK5WreFC4 OINob9i0Nd18R53dN2Ku dXA+WKMqqGG1jBE9 mE4eOePhQsQ6QQvpV690 GyBmwWYmNyxti0hzg0gy wMi9YgZ7VLPzjsRylKze UMP6b6BzUl26D89a IHdpZHRoPSIxNSUiIHZh iTwiyx9hhF8bMb1+PGNv yZL7yCX8pH0qUhOmOhH8 RObxP571OwOhiMJz Bmrsp0hzm1rsyOz0HsJj TTQkpgXqrSkbOKV8b0Ju Kc72G6NflGmob1NcOzf7 hd20vHPss0W8dOK2 A1YwUJFivylioWFkeYbb SS9cJSFsecrwILOwaT6h XGXkA2f5TjWsZrQ0KBon D4SlsuN4UGAdlPJq UQucXGV5G59mk7M1WGNn DCIsIRF2dKR4uX8ljByq bjogbGVmdDsgdmVydGlj LCozHNfwK602MNGz wDnrCCXlsL6fZYKmsALo lLzrMK9gTONbnmmmTdRK R6BKR05ULADNA6XWSfNs DLtSUA93I4PzAmp0 SCQzcNehSF5oyDMiHAgh Dx4roIkfhBduCZ0wUFSf tvhrCDAlxB6pNAMheCLq bAknGU8eVNVamfnm u019YbWcTDB0HYTzkXJx E4PlwK2mYmNlHUUyOCBa D3ReySUnMPswR313GBwo PyT3SGOsikQoA1Xr QCInjQglAmQ3j5N9Nt7w FY8gWs6zBDF0EF14QW86 dKWna8S9uON9E4FlORMq xsgzlgbltLK9SEAv XYSgeR76vCVvZCcfPd8x j0Z2f343MADiGKEimZ30 Ou9faAxpBFCwsNLCkQ2b rvxxx1vxwflyQzMt FVYuKUn1JKi5ABOfsMtn RtEaFHG9LgX0UDM9oODw hL8oqDyqnhqubB2rLso+ ZMGuAWJiyrC2R0Na Chb2JVFelCsiJW1ktLWx LHttDl5lmXtokTiiGK4g WTNgycmpAWQjqA7iPMMz iSPdqKtkEH7oBQMi gpmos105HoKtYRX6HPEp bDGtQ9RkqB5eTsYkTNNd NPBjL0NyeSEhYDrbO883 PZgzKcQ8KUJlzoOb F9IyNATeyOrtGzT1i5M7 Cq5MAVcLET38KC13bCTy c2A7hCF4Z7ZzABNmfosy zzitwAG5YZRuOXTq tK57lDTcFDneLy5zn2H0 k375OGOuGQUsaH13Pk1b bZyjGTZcnAXCvU8vprcd n5xctecuAvCeRKOl TNn8XGj4IFGfgGzpMkAk ZCG7YtQ4MFW7vTGygQ8g fDlyiqegnQ4oJjh+RW1l iefwddR4NT14RJ62 W1ClHqckpBIfzWV+PHRh YmxlIHdpZHRoPScxMDAl LlGffGwjQU2sBn1zQELu LWNvbGxhcHNlOiBj y6taEGMuHOqiUX5uqNnd E6XtpCL9BPPll1x5Te44 I44qR0IrmAU+PGNvbCB3 fKB6cW7cPhPwLgU3 CQdxG318LmVvnJSuKgeb v6fvu9vpcKp7SxMgZIDi jbBgwExhNFU3q4WdGf62 E68zQAznUXBpUFKx QUKkQMXryTdvpv5fiI3q Ii8+OHEuxZU2nNY5bB1o IcOaIgX6MXrhE348UvWw iBMoDjrmD62mX6Ug dXA+ITSyIid2OYUqbMpj PA4czSNjATrsWv2rEMF1 ImUqAcZiJThbT2UhSTFw eniodfjssBU8IQUi HRRmwR45Cf9kfKizWj8d YZQiCGH0GUKwlFWyC4Tn hZ0hIkZoRLIoFHTaI9Ph oNYrGRuyL199EEkv RyX6BWSrapUzH5XhIAJi nBcmGrD1y7X7Db2ZgYgk aTUeXS4gNkExVHj8F7Eb Weq9OLShhUeuOO0f oCBwPTzePr6qrAaqcMlo BB3uDTZiuesvw861DrQz m9lyWJCkdXIqXQlkDPE4 W22ye2J5WPJjBLUm UEU1yNZ1kY1ttWdheyaq bGVmdDsgdmVydGljYWwt DZuhO350QUTvtLwsEvTD Bif3X2BoXri1WYTu fKqoTA6hrNJfEHyvNk3e bFcqfRpcWD3xASKwciyu n934YbHdk3wrUEOzdGMa ITdjVOE7Z34md1F3 MYQvOUEfPRB6aZJ8gU4h bGlnbjogbGVmdDsgdmVy iBvmZOmpNNkwC342DDTa rFdcMb0UVtv5X5Aw Rju9BRMjsWmfLS8lpDYy JXxdVr6orRvnsRlhRG9p SVFiqzuuf489PpBrz3jc IDEwcHQgVGltZXM7 T41fs7L4SZAsIDPhEER4 kSL5kU7tqQtvebggiJZz dDsgdmVydGljYWwtYWxp U322ARLfdHhnAkLe eWVyOjwvdGQ+NL27lv37 A2OeVrotMaf7CWAbZSW3 oDQ4kV3aYKRrJYjki9Z9 iWU7Y1SvhoXtoj6x b2x (more content not included)... [facility] Coding Summary HTMLBase 64 CfxltzbyCCq1bXj+PGhl YWQ+GB7GROPzP80vdWXo yR1JH2tLQO8XBOJINQIN JE8KMJ6puCI3NTmoJ2Kc biAv TmhezXLhDL28XLr6QDW1 hTxiXEphrP8ezILgX1q7 HnLkRH47oM82MBryLFVu TfA7ZkExgbhagGNw P7rzAiSekNIcAlz+PHRh YmxlIHdpZHRoPScxMDAl HyLfnWkfOJ2bXo6mGUAa LWNvbGxhcHNlOiBj n1wcDRLuWSlrJG5mkMog F2PkvHB2JLUmy1w0Ry99 dHI+FVYrKFX0tKmjAXmg d462TbUbz8mwREU6 vIWtRTccFIY3K86mx7K7 RPUdWGDgXNO5gQC1dP0c fVsacqbgW2VlmSVrToF8 SXS2kEVrgL7zgZjj mbuyxK6kFst+L54YQG4I TIMXMW7OEwk1B4EhOxoh dHI+XO12VPNkES04aKVh oLMcv7yyxIa9SbHf YGXfIPZ4fKwmGAawa5Vn VEExD64rfFKfz9K5BTAk qYmquVKqGaNsmYK9dQ9v XYyaolndx1qbdnzl Ljhpn1gzmp96vT32Z46h NArdEOUzDDS9IEUjXNGd fCrujt5dwM7xXw0+IDxj f9fyf7gbrMa7IxOe GYIgiyNtfYrnPFS3r7Hy Uw26U4IaiWymq1FuKrr8 kq08lODjj7V4hIF5LFoo DKPjbC1bCEqqWwT6 PMVpFvWpxA96pGLqDNgu Mc3xnXcgaPodER5hSDTo rxjdZFFcdW7aHMRqqWMb rEqcBQ6nMSYkltek a696BlKjMJL2LCDqcPLg R4BwuA9oOmMqSNIbIPRw L8MepZMxIZdyC176ZWan WaF6RFFwcjBmG6Dp WXHniBzkFuV5b9I5Rg9G p3TqlqzcDBR3KDgxSSM2 UqQ7KaIcAoR2Y0IfTje8 DCTiwRmeHO5cV6Rb LQOokoezmzvxrND4NZQr ICWuzT79zVVpHSluNh6i q2Y4b588VTGfNBSzyM42 Yt3fqDwsNQBewDFV uL5crfent9bllzgzSbOv QUBsBBx7DHy6HHTozRsd VeDnWJA8GtS7WHX5tRYx eF2tnHobjdfheN8x Oyc+U29voZ1dQXN0MTQ4 umgaKQNgbkScQD57SH65 F9CsUibclXXvqCD+PGRp ncOvaQwsBX9zRwKd m7vxy9NiNUxtJ8CwODPr DRhvQnp6ZBSvNVQ2pJI2 tC9gSWZxRMuuu1W3fZZ6 T3NyhsHkoo5bq2xt FOClNKlgZ51tkQPhq4A6 XTMdcQI0JBPdbNbtBxUc jB59Pmt+IVSgvSbvz1Si Sqrht7vib6dvjWa7 IjMwJSIgdmFsaWduPSJ0 q3VtEx88W75jKMxsNXXs AMWiDOEaSQJslTwfme3a kG7lQs5+PGNvbCB3 xKE8aX0gKJSoCcT8ISzg P346LmVuzAMsNnegq2sw k9ubhYe6RnQeJYAdhfEa nBjjCBB2x7XhOh14 C62vQWwdKUNkNYFxWLTs PTCmfOjhzl6cjO3rXw2+ TJ8iu6juvh72jV68hGW+ ODMqRER8uTyqFXvo OSHakA3tCQieWaF9ICTm CvIssO43gCItSGwkKp0z lHvcqRvlEA8aOOOujoas c439PrRks8nzIGRn fEIuAOgiBZI0J14ui1R7 PUDwJVWdFBR1hFT6tY3r bGlnbjogbGVmdDsgdmVy wLajYSqdNJggJ840 IHRvcDsnPlBhdGllbnQg WkEqIGv0T5OtHdr3TOIw eCqcZG7mwLZuYUazNy6g vXavoWzzDT1bAMWo ygdoh585LvXgz9ucPUHa vXNzEFmmXKR6A22iq2J4 TGAqWDAyCCT2qWI4fU4q bGlnbjogbGVmdDsg ecYsdZizAOjwHRwoD187 IHRvcDsnPkJpcnRoIERh oNO2YM45CK83iOIaw8R5 eXV5J5VgELFkhrqp susohXZ2FBRyVQLqbW99 Vh1alJakYp5zIURoGEO7 IYRaxUJuL4CphP3hBmRd XYJzJNExK9XxwMTm XJehR575ZVenTkJ0BGMb oyWvS0LiOPKfzGzpFoZ2 t3G3Ks1HR7X8IP57XE61 jOPwu2Q1iND7K9It WFXtakeqzomunDR0RSNr BZZxgB87Bk0naShyXd5t ULKtABN9MSLdvDSzD0Vi nR7dKfCzKTYyPJJk L8CiaZBcQOhxS272TAhu JsT6YPQilrUbS6MaJMWv kMtjYyJ2j2V1Vr4VBDq7 DX18EL98kXKcm0V7 nBU7D6DpVMTkbjyrletx pAD7HLJnQDXcjA92Db0t kGcoBl8eHQIaSUN9DGBp bLRgI8AmfI5oIgHx YIXhQTMqP8FinPNrMSuf X779EDguOaU9NVYnreOb A4JsLXRfhSviVkG6f7G3 Rs9SODEpHK05QPU8 nCP8YM79WM27G3YsPayo dGFibGU+PHRhYmxlIHdp ZHRoPScxMDAlJyBzdHls VX6aTu2qRNQnWXFl kEzhpVHzUtOck1udVCJo HHuhYB9dfOfyI1WvqQS9 AOUuh8x2Sr68C45fR7Ef dXA+KFUtsCB2cLM8 nG0mJhYnXaX9OJdlN264 IaKumXOoOamax0evr5dc kLw8PwE0WSDjdoGkaFfk STF4j9JnBr54K91n IHdpZHRoPSIxNSUiIHZh wUdgfe4itR1gMo7+PGNv tWQ3bXB0pM6eGnBoHfO1 DNqfV343YfWvkUNj Blqqz5vpl5axsRi4MiDy PWTxleNuiMkrKFF1p1Ec Fp65D5GniLhmy9EiExn9 jd78hJQnv4T4oVV0 O3BeTOWiedsgmYQjiTnp QW7aWKPunejeGMRjqP7w WACdI7z2IbStSuW3XJys Q3WsnqE1SZKzgEAa QGvqLYI6L14lj0V1DWBf MRAdVAM2iIA6mP7yyDao bjogbGVmdDsgdmVydGlj XLqeAIngO075HBUx vYjsDHCstS1rYOGbjBWt bLhkTQ4lICHgqmooCyZG B8ZGE37FWPSJW0UWWxSr XJkVRI61Y6CwZmw3 VIEbrVcrJQ5wrLOkPIto Mz1ivSpdsLyxXY6dNSFj yvhlYAPfeT0xPMPaiQIm tZleWB7jHONyertn u608XpQnOAO8VPTtoJHv U3NopJ3rEuSbGKMhRFIl X6LppWAsBEbwJ246PIxc DoV1QMLoehHiQ4Fq EMYtdMzjUnB7s0U1Rc5x VJ9zNl5iXEJ1UK34TP73 wWGfb9O2vDL8H1MkOYCg uxsdvckvgAK8WZZz SPHepR90nFDsEXwaSh0b k6H1b163INDaIQRphT60 Qo6mlZhkKYJiwTKKtZ4r cdqmt7zvzxuvQaRx SHZvXVu1ZEt4CSGoeHms UlXjVQE6JfF9QQB1qSIz iH5ekTbrrmoecU2zJam+ JUTwCDFhtlL2S2Zl Vnv9GWNlgCmuWY9guLSr QEtmCz9nlGbovYxxRT1k XBSlvoiyWNKcsG2dYKRw iOGoiGxqER4lFQGc lykrh673QtNfXJZ5VPTf dSOzT4YdkM9aPuUaSSNc SLEbU8QwtXUiVBnaH968 GTxqVmE1CULmdeGf L2EqGNYlzGmqTgQ2n7C2 Bj9QORjWMC88WB77xUXm j8R2eAA3Q7FmDVAbqaqs eytbiPB0ATXeSRYv bW57tZCnANduOh8ex1N2 r112YGKbQEBekP56Iu7c fLdfXCVbbDWYxG4ogqdg c8asbopcZnVtCJMe ESc1GZp0HDLdeHppNkPd CNP3ZiH4EEE8jHEbgB6b aQndeubtaZ8lXrf+RW1l czoirrL3MY42BE14 Q1AeEspczQSwuCI+PHRh YmxlIHdpZHRoPScxMDAl ByItgYbxHR5dUb5gGRDa LWNvbGxhcHNlOiBj v7snHTDpEKdvKQ3lyRvn X5ChvOJ7DUBzo5c6Ve51 B64lY0WlpEF+PGNvbCB3 iVA2xG3jGbGmDpW0 XZtjE475XnOptXVhYyfe f9llg0coxKj8HhZwGMTv kcQteFfpXXO0w1MuCi23 X97aDOweELAuNRQj JZYwRVNimJbrot5acV8o Ii8+ZWEieLQ6kLF8jW0y BjOkFdO0FHrqS219MjPb xTUkFwhwM95pT4Mu dXA+JAMeOhr4IXQzqIeb QR4heDHrQFwbAk5jVLJ7 AvJgNlKuXQyxI7HoXFLc omlweumxmDB5MNTv AVTfqS96Um4idAqoKp8f FRCnZRC4JVMfbFZhW3Qa aH6xOsRgWZGhKMObS0Lt lITzHSlsN502CMim LjV6AHAyjmGjH3FpQKCk uNaqUbM3z3T0Zn3PdSgp jQJlWW7yWfFvCEs0H5Am Clg4MYHnxYzmEG4h xRDeFUeqIp6feLbvtGxq WA0vTUUudsfpk118KtQh p9maEAYgqUYwREwqMHN9 A67ts8I8UHKuCNNz APK7aOQ9sX1tnPenpyek bGVmdDsgdmVydGljYWwt ZDmmD410LPZdnXxiRiZS Mxk8N3WhQpf3JCEk lGvbHS8nnUPrQVrcNf5l iXpinIbkER4yHMCrczps n691GwUnl3xnTLNmuMUm YTudSJP4O19qz9S8 SUCaAUPtXKO5sOO4hC8l bGlnbjogbGVmdDsgdmVy wOcwYWueORpuI040GUBa uNiiMk9LDhy7Z4Iz Luj0WJJeoGfnOC1yhDQp MDyaTb2ssUjsqOxxCT4a UDMgwifvl569IyPwh1ud IDEwcHQgVGltZXM7 T32ec4F0ZLNdOFInXAK0 qQM4xX8awSfebjcuiYBh dDsgdmVydGljYWwtYWxp D724OQNdrDagFrXz eWVyOjwvdGQ+BJ79kz34 T2VlNaqbDuu4BOYpTXY8 kPW6mD6xXGHaQJmji7F0 zXK9J9PrdlKkvx2s b2x (more content not included)... Normal [facility] ED Clinical Summaryon 2020 ED Clinical Summary [facility] - Emergency Department [address] [place], [place] [id number] ED Clinical Summary PERSON INFORMATION Name: ROSA EASTMAN Age: 55 Years Sex: MALE : 1965 MRN: Acct#: Visit Reason: Hand pain-swelling; RIGHT WRIST PAIN Arrival: 04/01/2021 19:05:43 Discharge: 04/01/2021 19:35:00 LOS: 000 00:30 Check In: 04/01/2021 19:05:43 Checkout:04/01/2021 19:35:00 Address: [address] [place] [address] PCP: Provider, None PROVIDER INFORMATION Provider Role [...] Follow-Up: With: Address: When: Andrew Mckenzie DO [address] [place] [id number] Within 3 to 5 days DIAGNOSIS: 1:Sprain of right wrist Patient Understands: Yes - Patient/family/careg iver verbalizes understanding of instructions given Comment: Normal [facility] ED Patient Summaryon 021 ED Patient Summary [facility] - Emergency Department [address] [place] [id number] PATIENT DISCHARGE INSTRUCTIONS Patient Information Name: ROSA EASTMAN Age: 55 Years Date of : 1965 Reason For Visit: Hand pain-swelling; RIGHT WRIST PAIN Arrival Time: 04/01/2021 19:05:43 Primary Care Physician: Provider, None Attending Physician: Medhat Hernandez MD Comment: Visit Diagnosis: Diagnoses This Visit Hand pain-swelling ([id number]) Sprain of right wrist (S63.501A) Prescription Information: If you have been given a prescription for narcotics, seek immediate medical attention if you have any difficulty breathing or any sudden status changes such as confusion and sleepiness. If you or anyone you know is experiencing suicidal thoughts, mental health, alcohol and/or drug addiction problems; contact the [facility] 02/06 Crisis Hotline -Text 4HROZ ix 248759. If you received any narcotics, sedation, or [...] documents With: Address: When: Andrew Mckenzie DO [address] [place] [address] Within 3 to 5 days Medication Information: The exam and treatment you received today in the [facility] Emergency Department were for an urgent problem and are not intended as complete care. It is important for you to follow up with a doctor, nurse practitioner, or physician?s technical services assistant for ongoing care. If your symptoms [...] can reach you if necessary. [facility] Emergency Department has provided you with a complete list of medications post discharge. Please inform your community relations officer/provider of your visit and for further instruction on these medications. Any specific questions regarding your chronic medications and dosages should be discussed with your primary care physician(s) and/or pharmacist. Medications to Continue That Have Not Changed Other Medications acetaminophen-hydroc odone (hydrocodone-acetami nophen 5 mg-325 mg ([place] 5)) 1 tab(s) Oral Every 6 hours [...] (more content not included)... Normal [facility] Vital Signs Date Time Vital Sign Value Performing Clinician Facility 03-23-2025 13:13-0400 Body height 172.7 cm Charmaine Lowe PA Work Phone: [facility] 03-23-2025 13:13-0400 Body mass index (BMI) [Ratio] 31.02 kg/m2 Charmaine Lowe PA Work Phone: [facility] 03-23-2025 13:13-0400 Body weight 92.53 kg Charmaine Lowe PA Work Phone: [facility] 03-23-2025 13:13-0400 Diastolic blood pressure 86 mm[Hg] Charmaine Lowe PA Work Phone: [facility] 03-23-2025 13:13-0400 Systolic blood pressure 130 mm[Hg] Charmaine Lowe PA Work Phone: [facility] 12-28-2024 13:00-0500 Body height 172.7 cm Charmaine Lowe PA Work Phone: [facility] 12-28-2024 13:00-0500 Body mass index (BMI) [Ratio] 30.87 kg/m2 Charmaine Lowe PA Work Phone: [facility] 12-28-2024 13:00-0500 Body weight 92.08 kg Cahrmaine Lowe PA Work Phone: [facility] 12-28-2024 13:00-0500 Diastolic blood pressure 78 mm[Hg] Charmaine Lowe PA Work Phone: [facility] 12-28-2024 13:00-0500 Systolic blood pressure 132 mm[Hg] Charmaine Lowe PA Work Phone: [facility] 12-14-2024 14:15-0500 Body height 172.7 cm Hilario Small MD Work Phone: [facility] 12-14-2024 14:15-0500 Body mass index (BMI) [Ratio] 31.02 kg/m2 Hilario Small MD Work Phone: [facility] 12-14-2024 14:15-0500 Body weight 92.53 kg Hilario Small MD Work Phone: [facility] 12-14-2024 14:15-0500 Diastolic blood pressure 78 mm[Hg] Hilario Small MD Work Phone: [facility] 12-14-2024 14:15-0500 Heart rate 91 /min Hilario Small MD Work Phone: [facility] 12-14-2024 14:15-0500 Systolic blood pressure 136 mm[Hg] Hilario Small MD Work Phone: [facility] 09-06-2024 13:16-0400 Body height 172.7 cm Candida Sidhu PA Work Phone: [facility] 09-06-2024 13:16-0400 Body mass index (BMI) [Ratio] 32.54 kg/m2 Candida Sidhu PA Work Phone: [facility] 09-06-2024 13:16-0400 Body weight 97.07 kg Candida Sidhu PA Work Phone: [facility] 09-06-2024 13:16-0400 Diastolic blood pressure 80 mm[Hg] Candida Sidhu PA Work Phone: [facility] 09-06-2024 13:16-0400 Heart rate 59 /min Candida Sidhu PA Work Phone: [facility] 09-06-2024 13:16-0400 Respiratory rate 16 /min Candida Sidhu PA Work Phone: [facility] 09-06-2024 13:16-0400 SaO2% (BldA) [Mass fraction] 99 % Candida Sidhu PA Work Phone: [facility] 09-06-2024 13:16-0400 Systolic blood pressure 120 mm[Hg] Candida Sidhu PA Work Phone: [facility] 12-09-2023 15:33-0500 Body height 172.7 cm Hilario Small MD Work Phone: [facility] [employer] [facility] 12-09-2023 15:33-0500 Body mass index (BMI) [Ratio] 31.02 kg/m2 Hilario Small MD Work Phone: [facility] [employer] [facility] 12-09-2023 15:33-0500 Body weight 92.53 kg Hilario Small MD Work Phone: [facility] [employer] [facility] 12-09-2023 15:33-0500 Diastolic blood pressure 78 mm[Hg] Hilario Small MD Work Phone: [facility] [employer] [facility] 12-09-2023 15:33-0500 Heart rate 79 /min Hilario Small MD Work Phone: [facility] [employer] 12-09-2023 15:33-0500 Systolic blood pressure 130 mm[Hg] [facility] 02-20-2023 14:00-0400 Body height 172.72 cm Josué Evangelista Other [employer] Other 02-20-2023 14:00-0400 Body mass index (BMI) [Ratio] 32.08 kg/m2 Josué Evangelista Other [employer] Other 02-20-2023 14:00-0400 Body weight 95.71 kg Josué Evangelista Other [employer] Other 02-20-2023 14:00-0400 Diastolic blood pressure 80 mm[Hg] Josué Evangelista Other [employer] [facility] [employer] Other 02-20-2023 14:00-0400 Systolic blood pressure 130 mm[Hg] Josué Evangelista Other [facility] [employer] Other 01-22-2023 09:40-0400 Diastolic blood pressure 84 mm[Hg] DO Britt Rumschlag Work Phone: [facility] 01-22-2023 09:40-0400 Heart rate 70 /min DO Britt Rumschlag Work Phone: [facility] 01-22-2023 09:40-0400 Respiratory rate 16 /min DO Britt Rumschlag Work Phone: [facility] 01-22-2023 09:40-0400 SaO2% (BldA) [Mass fraction] 96 % DO Britt Rumschlag Work Phone: [facility] 01-22-2023 09:40-0400 Systolic blood pressure 136 mm[Hg] DO Britt Rumschlag Work Phone: [facility] 01-22-2023 08:47-0400 Body temperature 98 [degF] DO Britt Rumschlag Work Phone: [facility] 01-22-2023 08:12-0400 Inhaled oxygen flow rate 10 L/min DO Britt Rumschlag Work Phone: [facility] 01-22-2023 07:35-0400 Body height 172.72 cm DO Britt Rumschlag Work Phone: [facility] 01-22-2023 07:35-0400 Body mass index (BMI) [Ratio] 32.4 kg/m2 DO Britt Rumschlag Work Phone: [facility] 01-22-2023 07:35-0400 Body weight 96.8 kg DO Britt Rumschlag Work Phone: [facility] 03-13-2022 11:45-0400 Body height 172.72 cm Harvey Holt Other [employer] Other 03-13-2022 11:45-0400 Body mass index (BMI) [Ratio] 32.23 kg/m2 Harvey Holt Other [employer] Other 03-13-2022 11:45-0400 Body weight 96.16 kg Harvey Holt Other [employer] Other 01-14-2022 14:30-0500 Body height 172.72 cm Harvey Holt Other [employer] Other 01-14-2022 14:30-0500 Body mass index (BMI) [Ratio] 32.23 kg/m2 Harvey Holt Other [employer] Other 01-14-2022 14:30-0500 Body weight 96.16 kg Harvey Holt Other [employer] Other 09-19-2021 11:00-0500 Body height 172.72 cm Harvey Holt Other [employer] Other 09-19-2021 11:00-0500 Body mass index (BMI) [Ratio] 32.23 kg/m2 Harvey Holt Other [employer] Other 09-19-2021 11:00-0500 Body weight 96.16 kg Harvey Holt Other [employer] Other 09-19-2021 11:00-0500 Diastolic blood pressure 87 mm[Hg] Harvey Holt Other [employer] Other 09-19-2021 11:00-0500 Systolic blood pressure 130 mm[Hg] Harvey Holt Other [employer] Other Encounters Encounter Date Encounter Type Care Provider Facility Start: 03-23-2025 End: 03-23-2025 Bamboo flowsheet Charmaine Lowe PA Work Phone: [facility] Start: 03-23-2025 End: 03-23-2025 Bamboo flowsheet Charmaine Lowe PA Work Phone: [facility] Start: 03-23-2025 End: 03-23-2025 Office outpatient visit 25 minutes Charmaine Lowe PA Work Phone: [facility] Comment on above: Lumbosacral radiculo max (Primary Dx); Ulnar neuropathy at elbow of right upper extremity; Balance problems; Memory change; GIRMA (obstructive sleep apnea) Start: 03-23-2025 End: 03-23-2025 ambulatory CHARMAINE LOWE Not Available Start: 02-28-2025 End: 02-28-2025 ambulatory Richard Lezama MD [facility]: [facility] Start: 02-01-2025 End: 02-01-2025 ambulatory CHARMAINE LOWE Not Available Start: 01-31-2025 End: 01-31-2025 ambulatory Richard Lezama MD [facility]: [facility] Start: 01-25-2025 End: 01-25-2025 ambulatory MANI CARPENTER Not Available Start: 12-28-2024 End: 12-28-2024 Bamboo flowsheet Charmaine Lowe PA Work Phone: [facility] Start: 12-28-2024 End: 12-28-2024 Bamboo flowsheet Charmaine Lowe PA Work Phone: [facility] Start: 12-28-2024 End: 12-28-2024 Office outpatient visit 25 minutes Charmaine PUENTES Work Phone: [facility] Comment on above: Radiculopathy, cervi alex region (Primary Dx); Memory change; GIRMA (obstructive sleep apnea); Balance problems Start: 12-28-2024 End: 12-28-2024 ambulatory CAHRMAINE CASTRO Not Available Start: 12-14-2024 End: 12-14-2024 [...] MD Facility: [facility] Start: 09-06-2024 End: 09-06-2024 [employer] Candida PUENTES Work Phone: [facility] [address] [facility] Start: 09-06-2024 End: 09-06-2024 [employer] ([email or web address]heet Candida PUENTES Work Phone: [facility] [address] Start: 09-06-2024 End: 09-06-2024 Office outpatient visit 15 minutes Candida PUENTES Work Phone: [facility] [address] Comment on above: Balance problems (Pr imary Dx); Hyper reflexia; Lightheadedness; Lumbar back pain; GIRMA (obstructive sleep apnea); Memory change Start: 09-06-2024 End: 09-06-2024 ambulatory CANDIDA SIDHU Not Available Start: 08-23-2024 End: 08-23-2024 ambulatory Richard Lezama MD Facility: [facility] Start: 06-28-2024 End: 06-28-2024 ambulatory Richard Lezama MD [facility] Start: 04-22-2024 End: 04-22-2024 ambulatory CANDIDA SIDHU Not Available Start: 04-19-2024 End: 04-19-2024 ambulatory Richard Lezama MD [facility] Start: 03-15-2024 End: 03-15-2024 ambulatory Richard Lezama MD Facility:[facility] Start: 12-09-2023 End: 12-09-2023 Office outpatient visit 15 minutes Hilario Small MD Work Phone: [facility] Comment on above: Benign localized pro static hyperplasia with lower urinary tract symptoms (LUTS) (Primary Dx) Start: 10-15-2023 End: 10-15-2023 ambulatory CANDIS RENTERIA [facility] Start: 10-14-2023 End: 10-15-2023 ambulatory BRITT RUMSCHLAG [facility] Start: 03-04-2023 End: 03-05-[address] DOCTOR GARCIA Facility: Start: 02-28-2023 End: 02-28-2023 ambulatory Josuéadelaida Evangelista Other [facility] Other Start: 02-28-2023 Telephone encounter Josué Evangelista [facility] Start: 02-20-2023 End: 02-20-2023 ambulatory Josué Evangelista Other [facility] Other Start: 02-20-2023 Postop follow up vis it related to original px Josué Evangelista [facility] Start: 01-22-2023 End: 01-22-2023 Admission to same day surgery center DO Britt Rumschlag Work Phone: [facility] [place] Start: 01-22-2023 End: 01-22-2023 ambulatory Josué Evangelista Facility:[facility] Start: 01-22-2023 End: 01-22-2023 ambulatory DO Britt Rumschlag Work Phone: [facility] Work Phone: Start: 01-13-2023 End: 01-13-2023 ambulatory Josué Evangelista Facility:[facility] Start: 01-13-2023 End: 01-13-2023 ambulatory DO Britt Rumschlag Work Phone: [facility] Work Phone: Start: 01-13-2023 End: 01-13-2023 Patient encounter procedure DO Britt Rumschlag Work Phone: [facility] Work Phone: Start: 12-06-2022 End: 12-06-2022 ambulatory Josué Adelaida Evangelista Facility:[facility] Start: 12-06-2022 End: 12-06-2022 Patient encounter procedure DO Britt Rumschlag Work Phone: [facility] [place] Work Phone: Start: 08-10-2022 End: 08-10-2022 ambulatory [facility] Facility: Start: 07-08-2022 End: 07-08-2022 ambulatory Candida Sidhu Facility:[facility] Start: 07-08-2022 End: 07-08-[address] [facility] [address] Start: 06-21-2022 End: 06-21-2022 ambulatory Candida Sidhu Facility:[facility] Start: 06-21-2022 End: 06-21-20[address] [facility] [place] Start: 03-13-2022 End: 03-13-2022 ambulatory Harvey Holt Other [facility] Other Start: 03-13-2022 Office outpatient vi sit 15 minutes Harvey Holt [facility] Start: 01-14-2022 End: 01-14-2022 ambulatory Harvey Holt Other [facility] Other Start: 01-14-2022 Office outpatient vi sit 15 minutes Harvey Holt [facility] Start: 10-16-2021 Admission to [facility] Start: 10-16-2021 End: 10-16-2021 ambulatory Harvey Holt Other [facility] Other Start: 09-19-2021 End: 09-19-2021 ambulatory Harvey Holt Other [facility] Other Start: 09-19-2021 Office outpatient ne w 45 minutes Harvey Holt [facility] Procedures Date Procedure Procedure Detail Performing [...] Influenza vaccination Influenz a Vaccine (Season Ended) [facility] Start: 06-09-2025 End: 06-09-2025 Patient encounter procedure 06/09/2025 11:20 AM EDT Office Visit [facility] [address] [place] [id number] Charmaine Ackerman NP [address] [place], [place] [facility] Start: 03-23-2025 End: 03-23-2025 Patient encounter procedure 03/23/2025 1:00 PM EDT Office Visit [facility] [address] [place] [phone] Charmaine Castro PA [address] [place], [place] [id number] Arrived [facility] Comment on above: Arrived Start: 02-01-2025 End: 02-01-2025 Patient encounter procedure 02/01/2025 12:40 PM EDT Office Visit SAMANTHA ELLIOTT [address] [place] [address] Charmaine Castro PA [address] [place] [address] SAMANTHA ELLIOTT Start: 01-25-2025 End: 01-25-2025 Patient encounter procedure 01/25/2025 11:00 AM EDT Procedure Visit SAMANTHA ELLIOTT [address] [place] [address] Mani Carpenter MD [address] [place] [address] SAMANTHA ELLIOTT Start: 12-28-2024 End: 12-28-2025 EMG 2 Extremities EMG 2 Extremities Neurology Routine Radiculopathy, cervical region Expected: 12/28/2024 (Approximate), Expires: 12/28/2025 [facility] Work Phone: Comment on above: Expected: 12/28/2024 (Approximate), Expires: 12/28/2025 Start: 12-28-2024 End: 12-28-2024 Patient encounter procedure [facility]ICHAR ELLI[facility] [address] Comment on above: Arrived Start: 12-14-2024 End: 12-14-2024 Patient encounter procedure 12/14/2024 2:15 PM EST Office Visit [facility] [address] [place] [address] [place] [address] Hilario Small MD [address] [place] [address] [id number] [facility] Start: 12-09-2024 Adult BMI Screening Adult BMI Screen ing [facility] Start: 12-09-2024 Tobacco Screening Tobacco Screening [facility] Start: 12-08-2024 End: 11-08-2025 Prostatic specific antigen, diagnostic Prostatic specific antigen, diagnostic Lab Routine Benign localized prostatic hyperplasia with lower urinary tract symptoms (LUTS) Expected: 12/08/2024 (Approximate), Expires: 11/08/2025 [facility]: Comment on above: Expected: 12/08/2024 (Approximate), Expires: 11/08/2025 Start: 09-06-2024 End: 09-06-2024 Patient encounter procedure 09/06/2024 1:20 PM EDT Office Visit [facility] [place] [facility] [address] [place] [address] Candida Sidhu PA [address] [place] [address] [facility] Comment on above: Arrived Start: 07-11-2024 COVID-19 Vaccine ( season) COVID-19 Vaccine ( season) [facility] Start: 07-11-2024 Influenza vaccination N [facility] Start: 03-10-2024 Tobacco Counseling Tobacco Counselin g [facility] Start: 07-11-2023 COVID-19 Vaccine ( season) COVID-19 Vaccine ( season) [facility] Start: 07-11-2023 Influenza vaccination Influenza Vacc ine [facility] Start: 01-22-2023 End: 01-22-2023 [facility] Start: 07-08-2022 MRI of head MR head/brain wo con [facility] Start: 07-08-2022 End: 07-08-2022 Patient encounter procedure Departed Clinical [facility] [address] Start: 2017 Administration of varicella zoster vaccine Zoster (Shingles) Vaccine (1 of 2) [facility] Start: 1986 DTaP,Tdap and Td Vac cines (1 - Tdap) DTaP,Tdap and Td Vaccines (1 - Tdap) [facility] Start: 1985 Adult BMI Follow Up Plan Adult BMI Follow Up Plan [facility] Start: 1979 Depression Screening Depression Scre ening [facility] Start: 1967 Screening for malign ant neoplasm of colon [facility] Start: 1967 Tobacco Counseling Tobacco Counseldot driscoll [facility] Patient referral [facility] Work Phone: Immunizations Immunization Date Immunization Notes Care Provider Augustus villanueva 03-07-2021 COVID-19 mRNA, Comirnaty (Pfizer) [facility] 02-14-2021 COVID-19 mRNA, Comirnaty (Pfizer) [facility] 12-08-2020 influenza virus vaccine, unspecified formulation Candida PUENTES Work Phone: [facility] Payers Date Payer Category Payer Unknown 2022 Medicaid [id number] 2022 Medicaid [id number] 2022 Self-pay [id number] 1967 Unknown [id number] 2.16.84 0.1.871268.3.579.2.593 1967 Unknown [id number] 2.16.84 0.1.404407.3.579.2.593 1967 Unknown [id number] 2.16.8 40.1.167102.3.579.2.173 1967 Unknown [id number] 2.16.8 40.1.875487.3.579.2.173 1967 Unknown [id number] 2.16.8 40.1.919643.3.579.2.173 1967 Unknown [id number] 2.16. 840.1.924765.3.579.2.196 1967 Unknown [id number] 2.16. 840.1.993492.3.579.2.196 1967 Unknown [id number] 2.16. 840.1.797581.3.579.2.196 1967 Unknown [id number] 2.16. 840.1.634118.3.579.2.196 1967 Unknown [id number] 2.16. 840.1.429405.3.579.2.196 1967 Unknown [id number] 2.16. 840.1.228494.3.579.2. 1967 Unknown [id number] 2.16. 840.1.467698.3.579.2.196 1967 Unknown [id number] 2.16.84 0.1.118869.3.579.2.1259 1967 Unknown [id number] 2.16.84 0.1.246673.3.579.2.9 1967 Unknown [id number] 2.16.84 0.1.265589.3.579.2.9 1967 Unknown [id number] 2.16.84 0.1.913309.3.579.2.1259 1967 Unknown [id number] 2.16.84 0.1.480246.3.579.2.9 1967 Unknown [id number] 2.16.84 0.1.444673.3.579.2.1259 1959 Unknown [id number] 2.1 6.840.1.492311.19 Unknown [id number] 2.1 6.840.1.618391.19 Unknown [id number] 2.16.8 40.1.365196.3.579.2.531 Unknown [id number] 2.16.8 40.1.871341.3.579.2.531 Unknown [id number] 2.16.8 40.1.347434.3.579.2.531 Unknown [id number] 2.16.8 40.1.863059.3.579.2.531 Unknown [id number] 2.16.8 40.1.259769.3.579.2.531 Social History Date Type Detail Facility Start: 04-23-2024 End: 02-01-2025 Sex Assigned At [facility] Start: 10-16-2021 End: 01-22-2023 Tobacco smoking status NHIS Smoker (finding) [facility] Start: 1965 Sex Assigned At Male F [facility] Start: 09-10-2022 End: 04-23-2024 Tobacco smoking status WVIS Smokes tobacco daily [facility] History of tobacco use Cigarette Smoker [facility] Start: 04-23-2024 Tobacco use and exposure User of smokeless tobacco [facility] Start: 04-23-2024 End: 02-01-2025 Alcoholic beverage intake Current drinker of alcohol (finding) [facility] Start: 04-23-2024 End: 02-01-2025 History of Social function [facility] How often to you hav e a drink containing alcohol? Monthly or less [facility] How many standard drinks containing alcohol do you have on a typical day? 1 or 2 [facility] How often do you hav e 6 or more drinks on 1 occasion? Less than monthly [facility] Start: 1965 Sex assigned at Not on file P [facility] Start: 09-10-2022 Tobacco use and exposure Smokeless tobacco non-user [facility] Childcare Unknown [facility] Start: 05-03-2021 Alcohol Comment OCCASIONAL [facility] Start: 07-12-2015 Sex Male (finding) [facility] Medical Equipment Procedure Code Equipment Code Equipment Origin al Text Equipment Identifier Dates BONE 7MM DUO FORTITUDE SERIES FDA Start: 10-16-2021 Spinal fixation plate, non-bioabsorbable ()[id number] FDA Start: 10-16-2021 Bone-screw inter nal spinal fixation system, non-sterile ()[id number] FDA Start: 10-16-2021 Bone-screw inter nal spinal fixation system, non-sterile ()[id number] FDA Start: 10-16-2021 BONE 7MM DUO FORTITUDE SERIES FDA Start: 10-16-2021 BONE 7MM DUO FORTITUDE SERIES FDA Start: 10-16-2021 BONE 7MM DUO FORTITUDE SERIES FDA Start: 10-16-2021 Goals Date Patient Goal Desired Activity /State Clinical Notes 04-01-2021 to 03-23-2025 DELORIS Betancur - 03/23/2025 1:00 PM EDTTalbert Small MD - [...] Review Audit Reviewed by Stef Berg MA (Stain Applicator) on 03/23/25 at 1314 Medication Order Taking? Sig Documenting Provider Last Dose Status cyclobenzaprine (Flexeril) 5 MG tablet [id number] Yes TAKE 2 TABLETS BY MOUTH AT BEDTIME DELORIS Betancur Active gabapentin (Neurontin) 100 MG capsule [id number] Yes Take 100 mg by mouth in the morning and 100 mg before bedtime. Historical Provider, Active latanoprost (Xalatan) 0.005 % ophthalmic solution [id number] Yes Administer 1 drop into both eyes at bedtime DELORIS Steele Active meclizine (Antivert) 25 MG tablet [id number] Yes Take 25 mg by mouth as needed in the morning and 25 mg as needed at noon and 25 mg as needed in the evening for dizziness. DELORIS Steele Active omeprazole (PriLOSEC) [address] capsule [id number] Yes Take 40 mg by mouth in the morning. Take before meals. Do not crush or chew. Historical Provider, Active rosuvastatin (Crestor) 10 MG tablet [id number] Yes Take 10 mg by mouth Daily Historical Provider, Active HPI Dizziness -on Meclizine PRN -denies [...] triceps, wrist extensors, wrist extensors, wrist flexor, machine shop lead man strength 5/5. LUE Strength deltoid, biceps, triceps, wrist extensors, wrist extensors, wrist flexor, machine shop lead man strength 5/5. RLE Strength illopsoas, quadriceps, tibialis [...] in 2-3 months documented in this encounter [facility] 12-14-2024 History of Presen t illness Narrative Images from the original note were not included. [address] [place] [address] [address] [facility] [address] Patient: Rosa Eastman Date of : 1965 [...] 05/03/2021 Performed by Carlos Olmos MD at [facility] TONSILLECTOMY ULNAR NERVE REPAIR [...] for your understanding. documented in this encounter [facility] 12-09-2024 Miscellaneous Notes Contacted the Pt. To remind him to get his PSA drawn before his appt on Friday with MD Drew. No further questions at this time. documented in this encounter [facility] 12-09-2024 Telephone encounter Note Contacted the Pt. To remind him to get his PSA drawn before his appt on Friday with MD Drew. No further questions at this time. [facility] [employer] [place] 09-06-2024 History of Presen t illness Narrative [...] Review Audit Reviewed by Sophy Hays MA (Stain Applicator) on 09/06/24 at 1323 Medication Order Taking? Sig Documenting Provider Last Dose Status cyclobenzaprine (Flexeril) 5 MG tablet [id number] Take 2 tablets (10 mg) by mouth at bedtime DELORIS Steele 09/01/24 2359 gabapentin (Neurontin) 100 MG capsule [id number] Take 100 mg by mouth in the morning and 100 mg before bedtime. Historical ProviderMD Active latanoprost (Xalatan) 0.005 % ophthalmic solution [id number] Administer 1 drop into both eyes at bedtime DELORIS Steele Active meclizine (Antivert) 25 MG tablet [id number] Take 25 mg by mouth 3 (three) times a day as needed for dizziness DELORIS Steele Active omeprazole (PriLOSEC) [address] capsule [id number] Take 40 mg by mouth in the morning. Take before meals. Do not crush or chew.. Historical ProviderMD Active rosuvastatin (Crestor) 10 MG tablet [id number] Take 10 mg by mouth Daily Historical [...] -admits weakness in hand and trouble with machine shop lead man -finds himself dropping things -balance is good [...] triceps, wrist extensors, wrist extensors, wrist flexor, machine shop lead man strength 5/5. LUE Strength deltoid, biceps, triceps, wrist extensors, wrist extensors, wrist flexor, machine shop lead man strength 5/5. RLE Strength illopsoas, quadriceps, tibialis [...] EMG pending course documented in this encounter [facility] 12-09-2023 History of Presen t illness Narrative Images from the original note were not included. [address] [place] [id number] Patient: Rosa Eastman Date of : 1965 [...] 05/03/2021 Performed by Carlos Olmos MD at [facility] SUR[facility]ERY TONSILLECTOMY ULNAR NERVE REPAIR UPPER [...] for your understanding. 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 I will see him on an as-needed basis I think he has had a good outcome overall. [facility] Other 05-04-2022 Evaluation note* Encounter Date Diagnosis [...] Cervical spondylosis with myelopathy (ICD-10 - M47.12) [facility] Other 03-29-2022 NoteEducation Materials Neurology Paresthesia Paresthesia [...] or sweet foods. General instructions ? Take ynrl-kff-[id number] and prescription medicines only as told by [...] provider. Document Revised: 11/22/2019 Document Reviewed: 11/05/2018 [employer] Patient Education ? 2020 [employer]. Orthopedics Cubital Tunnel Syndrome Cubital tunnel syndrome [...] contact sports, (more content not included)...[facility] 01-14-2022 Evaluation note* Encounter Date Diagnosis Assessment [...] will see him on an as-needed basis. [facility] Other 11-10-2021 Evaluation note* Encounter Date Diagnosis [...] They understand and would like to proceed [facility] Other 09-27-2021 Note [id number]05-23-2021 NoteEducation Materials Orthopedics Wrist Sprain, Adult A [...] health care provider. General instructions ? Take fhhc-lse-ngntkws and prescription medicines only as told by [...] provider. Document Revised: 10/09/2018 Document Reviewed: 05/15/2017 Elsevier Patient Education ? 2019 [employer] Wrist and Forearm Exercises Ask your health care provider which exercises are safe for you. Do exercises exactly as told by your health care provider and adjust them as directed. It is normal to feel mild stretching, pulling, tightness, or discomfort as you do these exercises. Stop right away if you feel sudden pain or your (more content not included)...[facility] noteNo InformationNort [employer] Other evaluation noteNo assessment information available [facility] Work Phone: Evaluation note* Diagnosis Balance problems- Primary Abnormality of gait Hyper reflexia Abnormal reflex Lightheadedness Dizziness and giddiness Lumbar back pain Lumbago GIRMA (obstructive sleep apnea) Obstructive sleep apnea (adult) (pediatric) Memory change Memory loss documented in this encounter [facility]* Diagnosis Benign localized prostatic hyperplasia with lower urinary tract symptoms (LUTS)- Primary Benign localized prostatic hyperplasia with lower urinary tract symptoms (LUTS)- Primary [facility] Benign localized prostatic hyperplasia with lower urinary tract symptoms (LUTS)- Primary [facility] Diagnosis Radiculopathy, cervical region- Primary Brachial neuritis or radiculitis nos Memory change Memory loss GIRMA (obstructive sleep apnea) Obstructive sleep apnea (adult) (pediatric) Balance problems Abnormality of gait documented in this encounter [facility]* Diagnosis Lumbosacral radiculopathy- Primary Thoracic or lumbosacral neuritis or radiculitis, unspecified Ulnar neuropathy at elbow of right upper extremity Balance problems Abnormality of gait Memory change Memory loss GIRMA (obstructive sleep apnea) Obstructive sleep apnea (adult) (pediatric) documented in this encounter [facility] HealthcareHistory general Narrative - Reported* Type Description Date Surgical History (R) carpal tunnel release Surgical History (R) Ulnar nerve release Surgical History tonsillectomy Hospitalization History See Above [facility] Other Hospital Discharge instructions Additional Instructions Use [...] Any unusual redness or drainage contact the [facility] Work Phone: InstructionsNot on filedocumented in this encounter [facility] on filedocumented in this encounter [facility]* Attachments The following attachments cannot be sent through Care Everywhere. * Benign prostatic hyperplasia (enlarged prostate) (Kinyarwanda) [facility] Family History No Family [...] 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) Referral Organization [facility] urosurgery Referring Provider First Name Harvey Referring Provider Last Name Yanet Referring Provider Specialty Neurosurger y Referred Organization [facility] Referred Provider Mani Carpenter Referred Address [address] [place] [id number] Referred Provider Specialty Neurology Referral Priority Routine [...] DATE CREATED AUTHOR AUTHOR'S ORGANIZ ATION 01/23/2023 [facility] DATE CREATED AUTHOR AUTHOR'S ORGANIZ ATION 03/08/2023 [facility] DATE CREATED AUTHOR AUTHOR'S ORGANIZ ATION 10/18/2023 [facility] DATE CREATED AUTHOR AUTHOR'S ORGANIZ ATION 03/09/2025 [facility] DATE CREATED AUTHOR AUTHOR'S ORGANIZ ATION 03/24/2025 [facility] EPIC REASON FOR VISIT [...] Active Josué Evangelista MD Attending Provider Active [employer] Operations Intelligence Officer Relationship Specialty Start Date End Date Britt Penaloza DO [address] [place] [address] PCP - General Family Medicine 11/10/23 Mani Carpenter MD [address] [place] [address] Referring Physician Neurology 11/10/23 [employer] Operations Intelligence Officer Relationship Specialty Start Date End Date Britt Penaloza DO [address] [place] [address] PCP - General Family Medicine 11/10/23 Mani Carpenter MD [address] [place] [address] Referring Physician Neurology 11/10/23 Aoc Operations Intelligence Officer Relationship Specialty Start Date End Date [facility] [address] [place], [place] PCP - General Family Medicine 05/03/21 Aoc Operations Intelligence Officer Relationship Specialty Start Date End Date Services, [facility] [address] [place], [place] PCP - General Family Medicine 05/03/21 Aoc Operations Intelligence Officer Relationship Specialty Start Date End Date Services, [facility] [address] [place] PCP - General Family Medicine 05/03/21 [employer] Operations Intelligence Officer Relationship Specialty Start Date End Date Britt Penaloza DO [address] [place], [place] [id number] PCP - General Family Medicine 11/10/23 Mani Carpenter MD [address] [place], [place] [id number] Referring Physician Neurology 11/10/23 [employer] Operations Intelligence Officer Relationship Specialty Start Date End Date Britt Penaloza DO [address] [place], [place] [id number] PCP - General Family Medicine 11/10/23 Mani Carpenter MD [address] [place], [place] [id number] Referring Physician Neurology 11/10/23 [employer] Operations Intelligence Officer Relationship Specialty Start Date End Date Britt Penaloza DO [address] [place] [address] PCP - General Family Medicine 11/10/23 Mani Carpenter MD [address] [place] [address] Referring Physician Neurology 11/10/23 Charmaine Castro PA [address] [place], [place] [id number] Physician [facility] 02/01/25 [employer] Operations Intelligence Officer Relationship Specialty Start Date End Date Britt Penaloza DO [address] [place], [place] [id number] PCP - General Family Medicine 11/10/23 Mani Carpenter MD [address] [place] [address] Referring Physician Neurology 11/10/23 Charmaine Castro PA [address] [place] [address] Physician [facility] 02/01/25 Goals (unrecognized section and content) [...] BE BASED ON THE PRIMARY CLINICAL RECORDS. [facility]. provides no warranty or guarantee of the accuracy or completeness of information in this document.
--- NOTE | 2025-04-07 12:03 | PM.CN ---
Consult Note: HPI Data of Consult Patient: known to practice within the last 3 years Requesting Physician: Wilma Bhardwaj NP Primary Care Provider: Britt Goodman Consult Narrative Reason for consult: f/u Narrative: Homer Eastman a pleasant 59 year old male presents for evaluation of chronic neck and low back pain, has failed to benefit from >6 weeks of PT/HEP, heat, ice, tylenol, nsaids. hx of C3-4 fusion, recently evaluated by NS who did not recommend additional intervention per pt. recent cervical mri shows multilevel stenosis and degenerative changes. EMG of BUE consistent with right ulnar neuropathy and CTS, no evidence of cervical radiculopathy. Pain today aching 4/10 increasing to 10/10 by end of day. pain increased with standing, walking, pushinhg, pulling, bending, activity, lifting. Pain improved with heat. utilzes flexeril PRN, gabapentin 200mg BID, and mobic 7.5mg BID PRN with benefit without side effects. cc:: CC: Wilma Bhardwaj NP Review of Systems ROS Status of ROS 10 or more systems reviewed and unremarkable except as noted in history and below [facility] Medical History (Updated 03/09/25 @ 13:31 by Wilma Bhardwaj NP) Glaucoma ?H40.9 - Unspecified glaucoma (ICD-10) Obesity ?E66.9 - Obesity, unspecified (ICD-10) Smoker ?F17.200 - Nicotine dependence, unspecified, uncomplicated (ICD-10) Low back pain ?M54.50 - Low back pain, unspecified (ICD-10) Neck pain ?M54.2 - Cervicalgia (ICD-10) Osteoarthritis ?M19.90 - Unspecified osteoarthritis, unspecified site (ICD-10) Bipolar depression ?F31.9 - Bipolar disorder, unspecified (ICD-10) Carpal tunnel syndrome ?G56.00 - Carpal tunnel syndrome, unspecified upper limb (ICD-10) Chronic GERD ?K21.9 - Gastro-esophageal reflux disease without esophagitis (ICD-10) Acid reflux ?K21.9 - Gastro-esophageal reflux disease without esophagitis (ICD-10) Sleep apnea ?G47.30 - Sleep apnea, unspecified (ICD-10) High cholesterol ?E78.00 - Pure hypercholesterolemia, unspecified (ICD-10) Surgical History H/O neck surgery ?Z98.890 - Other specified postprocedural states (ICD-10) H/O elbow surgery ?Z98.890 - Other specified postprocedural states (ICD-10) H/O carpal tunnel repair ?Z98.890 - Other specified postprocedural states (ICD-10) Hx of tonsillectomy ?Z90.89 - Acquired absence of other organs (ICD-10) H/O eye surgery ?Z98.890 - Other specified postprocedural states (ICD-10) Meds Home Medications and Allergies Home Medications ?Medication ?Instructions ?Recorded ?Confirmed ?Type epinephrine 0.3 mg/0.3 mL 0.3 mg IM DAILY PRN anaphylaxis 08/30/23 02/28/25 History injection, auto-injector latanoprost 0.005 % eye drops 1 drp ophthalmic (eye) .QHS 08/30/23 02/28/25 History omeprazole 40 mg capsule,delayed 40 mg PO QAM 08/30/23 02/28/25 History release rosuvastatin 5 mg tablet 5 mg PO DAILY 08/30/23 02/28/25 History cyclobenzaprine 5 mg tablet 5 mg PO DAILY 12/08/23 02/28/25 History gabapentin 100 mg capsule 100 mg PO DAILY 12/08/23 02/28/25 History famotidine 20 mg tablet mg 04/19/24 History Allergies Allergy/AdvReac Type Severity Reaction Status Date / Time bee venom protein (honey bee) Allergy Severe UNKNOWN Verified 02/28/25 11:14 Penicillins Allergy Severe LOSS OF Verified 02/28/25 11:14 CONCIOUSNESS Exam Constitutional Documenting provider has reviewed patient's vital signs: yes Common normals: no apparent distress, oriented x3, healthy appearing, alert and well nourished General appearance: cooperative HENMA Common normals: normocephalic, hearing grossly normal bilaterally and moist oral mucous membranes Head and scalp: normocephalic Eye Common normals: PERRL Pupil: PERRL Neck & C-Spine Common normals: full ROM General: normal visual inspection Cervical spine: cervical ROM abnormal, pain with cervical ROM and cervical spine tenderness C2, C3, C5 and C6 Other: negative spurlings sensation intact BUE strength 5/5 in BUE positive facet loading left>right Chest Common normals: inspection of chest normal Respiratory Common normals: normal respiratory effort, no retractions and no use of accessory muscles Neuro Common normals: oriented x3 Sensorium/orientation: alert Psych Common normals: mental status grossly normal, thought process normal, cooperative, affect normal, speech normal and activity/motor behavior normal Speech: normal speech Thought process: normal thought process Results Additional Findings Additional findings: If on a controlled substance or opioids, I have checked an [place] report on this patient and there are no aberrancies noted in the prescribing history.??If on a controlled substance or opioid a drug screen was completed and reviewed within the last year, and if there has not been a drug screen completed we ordered one today to monitor higher risk, state monitored pain medication use. As part of providing excellent, safe, comprehensive care, the following was completed at our patient's visit: 1. A medication reconciliation and review to ensure accurate knowledge of current/active medications, including asking our patients to inform us about any bjns-gta-tnccoma medications or herbal remedies/nutritional supplements/alternative remedies. 2. A review to specifically ensure our patients have had annual screening for screening for depression, screening for tobacco use, and screening for unhealthy alcohol use. For concerning screenings had a discussion with the patient, provided patient education, and recommended follow-up with primary care provider when appropriate. If patient noted with a risk of falling, they received education on strength, gait, and balance training to prevent future risk of falling. Portions of this note may have been carried over from the previous visit and updated as appropriate. Please note this office utilizes paper charting in addition to the electronic medical record. A list of current medications, vitals, and PMH is available there as the clinical staff outside of myself do not have access to [employer] charting during the clinic day operations. As part of providing quality comprehensive care the current medications, vitals, and PMH were reviewed in the paper chart. Assessment and Plan Assessment and Plan (1) Cervical spondylosis: Assessment and Plan: The patient has had over 3 months of moderate to severe neck pain with functional impairment and inadequate response to conservative care including NSAIDS (unless there are contraindication such as concurrent blood thinners), multiple oral or topical pain medications, and home exercise program/physical therapy.? Patient has completed >6 weeks of guided home exercise program and/or formal physical therapy program without relief of their symptoms.? The Oswestry Disability Index was completed, and the patient scored a 24%.? The patient noted the following:?? moderate to severe pain impacting ADLs, sleep, sitting, standing, social life, travel We discussed the risks and benefits of the procedure with the patient, and we are NOT planning on using sedation as outlined in the guidelines from Medicare unless there is a documented reason that sedation would be strongly recommended.?? ?The procedure will be completed with fluoroscopic guidance.? (2) Failed neck syndrome: (3) Cervical radiculopathy: (4) Sacroiliitis: (5) Myofascial pain: (6) Sacroiliac joint dysfunction of both sides: (7) Lumbar spondylosis: (8) Lumbar stenosis with neurogenic claudication: Plan bilateral C4-5 C5-6 MBB x2 for axial facet mediated neck pain in consideration of RFA continue current medications encouraged right CT brace HS and PRN, pt has an old brace at home f/u after each nerve block
== END 2025-04-07 11:34 | disposition home or self-care (01) ==
PROVIDERS: PCP Family Medicine; Visit Provider Nurse Practitioner
DX: M47.812 Spondylosis without myelopathy or radiculopathy, cervical region (principal); M96.1 Postlaminectomy syndrome, not elsewhere classified; M54.12 Radiculopathy, cervical region; M46.1 Sacroiliitis, not elsewhere classified; M79.18 Myalgia, other site; M53.3 Sacrococcygeal disorders, not elsewhere classified; M47.816 Spondylosis without myelopathy or radiculopathy, lumbar region; M48.062 Spinal stenosis, lumbar region with neurogenic claudication
CPT/HCPCS: G0463

== ENCOUNTER 2025-04-18 10:00 | Day surgery (SDC) | payer MEDICAID, SELFPAY ==
--- OUTSIDE RECORDS SUMMARY | 2025-04-18 10:11 | XMS_ITS | CCD ---
Author Organization [facility] Care Team Providers Care Nursery Helper Name Role Phone Harvey Holt Unavailable NON STAFF Primary Care Provider UnavailDAPHNEY Sotelo Attending Provider Rumschlag, DO Britt Primary Care Provider Rumcoco, DO Britt Primary Care Provider MD Josué Evangelista Attending Provider [phone] Rumschlayamila, DO Britt Primary Care Provider [...] Britt Primary Care Unavailable Josué Evangelista Unavailable [facility] Primary Care Unava ilable MITCHELL TRAYLOR Admitting Unavailable MERCEDES ENRIQUEZ Consulting Unavailable MITCHELL TRAYLOR Attending Unavailable MANI HARGROVE Consulting Unavailable MITCHELL TRAYLOR Consulting Unavailable MISC, DR GARCIAS Attending Unavailable MISC, DR GARCIAS Consulting Unavailable [facility] Primary Care Unava ilable RADHA, DR GARCIAS Admitting Unavailable RUMSCHLAG, BRITT Primary Care Unavailable YVONNE CAMARENA Referring Unavailable YVONNE CAMARENA Referring Unavailable RUMSCHLAG, BRITT Primary Care Unavailable CANDIS RENTERIA Admitting Unavailable CANDIS RENTERIA Attending Unavailable BRITT PENALOZA Primary Care Unavailable Britt Penaloza DO Primary Care Provider Mani Carpenter MD Unavailable [facility] Primary Care Provider Lise RAWLS, Andrius Vytautlaurel [...] Facility (7 sources) penicillAMINE Drug Allergy Unknown [facility] [employer] Other (7 sources) Bee Sting Drug allergy Unknown [employer] Other (17 sources) Penicillins; Translations: [Penicillins] Allergy to substance 05-07-20 17 Unknown Reaction [facility] (5 sources) venom-honey bee; Translations: [venom-honey bee] Allergy to substance 10-02-20 21 Swelling [facility] (1 source) bee venom Drug allergy (disorder) [facility] (1 source) Penicillin Drug Allergy [facility] (3 sources) Bee Venom Protein [...] Start: 12-27-2024 take 2 tablets by mo [facility] at bedtime cyclobenzaprine (Flexeril) 5 MG tablet [...] post void residualon 12-14-2024 Volume 87 mL [facility] Prostate specific Ag [Mass/V ol]on 12-09-2023 [facility] Prostatic specific antigen, diagnosticon 12-09-2023 Prostate specific Ag [Mass/Vol] 1.02 ng/mL 0.00 - 4.00 ng/mL [facility] Comment on above: The method used for this test is Roxy [place] DXI chemiluminescent immunoassay. Values obtained by different assay methods cannot be used interchangeably. H. pylori Antigenon 10-16-20 H. pylori Antigen Specimen Description .FECES Direct Exam NEGATIVE Report Status FINAL 10/16/2023 Normal [facility] Comment on above: Performed By: #### F HPY #### [facility] [address] [place], [place] [id number] Pulverizer: Guy Ramey MD [facility] [address] [place] [address] Pulverizer: Justus Darby MD Surgical Pathology Reporton 10-15-2023 Surgical Pathology Report (NOTE) Path Number: [id number] -- Diagnosis -- A. GE junction, endoscopic [...] for each. Microscopic examination performed. Processing Lab: [address] [address] Interpretation Performed at [address] [id number] SURGICAL PATHOLOGY CONSULTATION Patient Name: ROSA EASTMAN [facility] Rec: [id number] [facility] PATHOLOGISTS [facility] ANATOMIC PATHOLOGY [address] [place] [address]. [place], [place] [address] Normal [facility] CBC with Diffon 10-14-2023 Abs. Basophil 0.17 k/uL Normal 0.00-0.20 [facility] Comment on above: Performed By: #### C DP #### [facility] [address] [place], [place] [id number] Pulverizer: Justus Darby MD Abs.Imm.Granulocyte 0.04 k/uL Normal 0.00-0.30 [facility] Comment on above: Performed By: #### C DP #### [address] [place], [place] [id number] Pulverizer: Justus Darby MD Abs.Neutrophil (Seg) 5.08 k/uL Normal 1.50-8.10 [facility] Comment on above: Performed By: #### C DP #### [address] [place], [place] [id number] Pulverizer: Justus Darby MD Basophils/100 WBC (Bld) 2 % Normal 0-2 [facility] Comment on above: Performed By: #### C DP #### [address] [place] [id number] Pulverizer: Justus Darby MD Eosinophils (Bld) [#/Vol] 0.43 10*3/uL Normal 0.00-0.44 [facility] Comment on above: Performed By: #### C DP #### [address] [place] [address] Pulverizer: Justus Darby MD Eosinophils/100 WBC (Bld) 4 % Normal 1-4 [facility] Comment on above: Performed By: #### C DP #### [address] [place] [facility] Pulverizer: Justus Draby MD Erythrocyte distribution width (RBC) [Ratio] 12.3 % Normal 11.8-14.4 [facility] Comment on above: Performed By: #### C DP #### [facility] [address] [place], [facility] Pulverizer: Justus Darby MD Hematocrit (Bld) [Volume fraction] 44.4 % Normal 40.7-50.3 [facility] Comment on above: Performed By: #### C DP #### [address] [place], [facility]83 Pulverizer: Justus Darby MD Hemoglobin (Bld) [Mass/Vol] 14.6 g/dL Normal 13.0-17.0 [facility] Comment on above: Performed By: #### C DP #### [facility] [address] [place] [address] Dr. [place], [facility] Pulverizer: Justus Darby MD Immature granulocytes/100 WBC (Bld) 0 % Normal 0 [facility] Comment on above: Performed By: #### C DP #### [facility] [address] [place] [address] Dr. [place], [facility] Pulverizer: Justus Darby MD Lymphocytes (Bld) [#/Vol] 3.86 10*3/uL High 1.10-3.70 [facility] Comment on above: Performed By: #### C DP #### [facility] [address] [place], [facility] Pulverizer: Justus Darby MD Lymphocytes/100 WBC (Bld) 36 % Normal 24-43 [facility] Comment on above: Performed By: #### C DP #### [facility] [address] [place] [address] Dr. [place], [facility]83 Pulverizer: Justus Darby MD MCH (RBC) [Entitic mass] 30.9 pg Normal 25.2-33.5 [facility] Comment on above: Performed By: #### C DP #### [facility] [address] [place] [address] Dr. [place], [place] [address] Pulverizer: Justus Darby MD MCHC (RBC) [Mass/Vol] 32.9 g/dL Normal 28.4-34.8 [facility] Comment on above: Performed By: #### C DP #### [address] [place], [facility]83 Pulverizer: Justus Darby MD MCV (RBC) [Entitic vol] 93.9 fL Normal 82.6-102.9 [facility] Comment on above: Performed By: #### C DP #### [address] [place], [facility]83 Pulverizer: Justus Darby MD Monocytes (Bld) [#/Vol] 1.05 10*3/uL Normal 0.10-1.20 [facility] Comment on above: Performed By: #### C DP #### [address] [place], [facility]83 Pulverizer: Justus Darby MD Monocytes/100 WBC (Bld) 10 % Normal 3-12 [facility] Comment on above: Performed By: #### C DP #### [facility] [address] [place] [address] Dr. [place], [place] [address] Pulverizer: Justus Darby MD Neutrophil (Seg) 48 % Normal 36-65 [facility] Comment on above: Performed By: #### C DP #### [facility] [address] [place], [facility]83 Pulverizer: Justus Darby MD NRBC Automated 0.0 per 100 WBC Normal 0.0 [facility] Comment on above: Performed By: #### C DP #### [facility] [address] [place] [facility]83 Pulverizer: Justus Darby MD Platelet mean volume (Bld) [Entitic vol] 9.6 fL Normal 8.1-13.5 [facility] Comment on above: Performed By: #### C DP #### [facility] [address] [place] [address] Pulverizer: Justus Darby MD Platelets (Bld) [#/Vol] 297 10*3/uL Normal 138-453 [facility] Comment on above: Performed By: #### C DP #### [facility] [address] [place], [place] [id number] Pulverizer: Justus Darby MD RBC (Bld) [#/Vol] 4.73 10*6/uL Normal 4.21-5.77 [facility] Comment on above: Performed By: #### C DP #### [facility] [address] [place], [place] [id number] Pulverizer: Justus Darby MD WBC (Bld) [#/Vol] 10.6 10*3/uL Normal 3.5-11.3 [facility] Comment on above: Performed By: #### C DP #### [facility] [address] [place], [place] [id number] Pulverizer: Justus Darby MD Basic Metabolic Panelon 03-0 Anion gap [Moles/Vol] 9.8 mmol/L Normal 6.0-15.0 [facility] Comment on above: Performed By: #### C BC, BMP #### [facility] [address] [place] [address] [facility] Calcium [Mass/Vol] 9.1 mg/dL Normal 8.2-10.2 [facility] Comment on above: Result Comment: PERF ORMED BY: [facility] [address] [place] [address] PATHOLOGIST EMERGENCY VEHICLE DISPATCHER GENEVIEVE CANNON M.D. Performed By: #### C BC, BMP #### [facility] [address] Chloride [Moles/Vol] 104 mmol/L Normal 95-114 [facility] Comment on above: Performed By: #### C BC, BMP #### [facility] [address] CO2 [Moles/Vol] 25.9 mmol/L Normal 22.0-30.0 [facility] Comment on above: Performed By: #### C BC, BMP #### [address] Creatinine [Mass/Vol] 0.98 mg/dL Normal 0.64-1.27 [facility] Comment on above: Performed By: #### C BC, BMP #### [address] Estimated GFR ( Camila > 60 Normal [facility] Comment on above: Result Comment: GFR estimated reference range: According to KDOQI guidelines, <60 ml/min/1.73m2 is sufficient to diagnose a patient with chronic kidney disease. Performed By: #### C BC, BMP #### [place] [address] [place] Estimated GFR (Non- Am > 60 [facility] Comment on above: Performed By: #### C BC, BMP #### [place] [address] [place] Glucose [Mass/Vol] 82 mg/dL Normal 70-100 [facility] Comment on above: Result Comment: [place] Glucose Reference Range is dependent on time and content of last meal. Glucose of more than 200 mg/dL in a nonstressed, ambulatory subject supports the diagnosis of Diabetes Mellitus. ADA recommended reference range Performed By: #### C BC, BMP #### [place] [address] [place] Potassium [Moles/Vol] 3.7 mmol/L Normal 3.5-5.1 [facility] Comment on above: Performed By: #### C BC, BMP #### [place] [address] [place] Sodium [Moles/Vol] 136 mmol/L Normal 136-146 [facility] Comment on above: Performed By: #### C MICHELLE, BMP #### [facility] [address] Urea nitrogen [Mass/Vol] 11 mg/dL Normal 9-23 [facility] Comment on above: Performed By: #### C MICHELLE, BMP #### [facility] [address] Basophils Auto (Bld) [#/Vol] Ordered By: Josué Evangelista on 01-13-2023 Basophils (Bld) [#/Vol] 0.1 10*3/uL 0.0-0.2 [facility] Basophils/100 WBC Auto (Bld) Ordered By: Josué Evangelista on 01-13-2023 Basophils/100 WBC (Bld) 1.2 % . [facility] Calcium [Mass/volume] in Ser um or PlasmaOrdered By: Josué Evangelista on 01-13-2023 Calcium [Mass/Vol] 9.1 mg/dL 8.2-10.2 [facility] Carbon dioxide, total [Moles /volume] in Serum or PlasmaOrdered By: Josué Evangelista on 01-13-2023 CO2 [Moles/Vol] 25.9 mmol/L 22.0-30.0 [facility] Chloride [Moles/volume] in S lai or PlasmaOrdered By: Josué Evangelista on 01-13-2023 Chloride [Moles/Vol] 104 mmol/L 95-114 [facility] Complete Blood Count Auto Di ffon 01-13-2023 Basophils (Bld) [#/Vol] 0.1 10*3/uL Normal 0.0-0.2 [facility] Comment on above: Result Comment: PERF ORMED BY: [place] [address] PATHOLOGIST EMERGENCY VEHICLE DISPATCHER GENEVIEVE CANNON M.D. Performed By: #### C MICHELLE, BMP #### [facility] [address] Basophils/100 WBC (Bld) 1.2 % Normal . [facility] Comment on above: Performed By: #### C BC, BMP #### [facility] [address] [place] [address] [place] Eosinophils (Bld) [#/Vol] 0.5 10*3/uL High 0.0-0.45 [facility] Comment on above: Performed By: #### C BC, BMP #### [facility] [address] [place] [address] [place] Eosinophils/100 WBC (Bld) 4.7 % Normal . [facility] Comment on above: Performed By: #### C BC, BMP #### [facility] [address] Erythrocyte distribution width (RBC) [Ratio] 12.6 % Normal 12.0-14.8 [facility] Comment on above: Performed By: #### C BC, BMP #### [facility] [address] Hematocrit (Bld) [Volume fraction] 41.2 % Normal 38.8-50.0 [facility] Comment on above: Performed By: #### C BC, BMP #### [address] Hemoglobin (Bld) [Mass/Vol] 14.1 g/dL Normal 13.0-17.0 [facility] Comment on above: Performed By: #### C BC, BMP #### [facility] [address] [place] [address] [place] Lymphocytes (Bld) [#/Vol] 3.4 10*3/uL Normal 1.00-4.8 [facility] Comment on above: Performed By: #### C BC, BMP #### [facility] [address] [place] [address] [place] Lymphocytes/100 WBC (Bld) 33.3 % Normal . [facility] Comment on above: Performed By: #### C BC, BMP #### [facility] [address] MCH (RBC) [Entitic mass] 31.7 pg Normal 27.5-35.2 [facility] Comment on above: Performed By: #### C BC, BMP #### [facility] [address] MCV (RBC) [Entitic vol] 92.3 fL Normal 83.5-101 [facility] Comment on above: Performed By: #### C BC, BMP #### [facility] [address] Mean Corpuscular HGB Conc 34.4 g/dL Normal 32.5-35.6 [facility] Comment on above: Performed By: #### C BC, BMP #### [facility] [address] [place] [address] [place] Monocytes (Bld) [#/Vol] 1.0 10*3/uL High 0.0-0.8 [facility] Comment on above: Performed By: #### C BC, BMP #### [facility] [address] [place] [address] [place] Monocytes/100 WBC (Bld) 10.1 % Normal . [facility] Comment on above: Performed By: #### C BC, BMP #### [facility] [address] [place] [address] [place] Neutrophils (Bld) [#/Vol] 5.2 10*3/uL Normal 1.8-7.7 [facility] Comment on above: Performed By: #### C BC, BMP #### [facility] [address] [place] [address] [place] Neutrophils/100 WBC (Bld) 50.7 % Normal . [facility] Comment on above: Performed By: #### C BC, BMP #### [facility] [address] [place] [address] [place] NRBC% 0.1 /100{WBC} Normal 0-0.5 [facility] Comment on above: Performed By: #### C BC, BMP #### [facility] [address] Platelet mean volume (Bld) [Entitic vol] 7.8 fL Normal 6.6-10.1 [facility] Comment on above: Performed By: #### C BC, BMP #### [facility] [address] Platelets (Bld) [#/Vol] 268 10*3/uL Normal 150-450 [facility] Comment on above: Performed By: #### C BC, BMP #### [facility] [address] RBC (Bld) [#/Vol] 4.46 10*6/uL Normal 3.90-5.60 [facility] Comment on above: Performed By: #### C BC, BMP #### [facility] [address] WBC (Bld) [#/Vol] 10.3 10*3/uL Normal 4.1-10.5 [facility] Comment on above: Performed By: #### C BC, BMP #### [facility] [address] Creatinine and Glomerular fi ltration rate.predicted panel (S/P/Bld)Ordered By: Josué Evangelista on 01-13-2023 Creatinine [Mass/Vol] 0.98 mg/dL 0.64-1.27 [facility] ECG 12 lead ECGon 01-13-2023 ECG 12 lead ECG [facility] [place] [address] [place] [address] Electrocardiograph Report Signed Patient: Rosa Eastman MR#: [id number] : 1965 Acct:[id number] Age/Sex: 57 / M ADM Date: 01/13/23 Loc: PS Room: Type: [facility] Attending Dr: Josué Evangelista MD Ordering Provider: [...] Marylin Eisenberg MD 0 01/14/23 1534 Normal [facility] Eosinophils Auto (Bld) [#/Vo l]Ordered By: Josué Evangelista on 01-13-2023 Eosinophils (Bld) [#/Vol] 0.5 10*3/uL 0.0-0.45 [facility] Eosinophils/100 WBC Auto (Bl d)Ordered By: Josué Evangelista on 01-13-2023 Eosinophils/100 WBC (Bld) 4.7 % . [facility] Erythrocyte distribution wid th Auto (RBC) [Ratio]Ordered By: Josué Evangelista on 01-13-2023 Erythrocyte distribution width (RBC) [Ratio] 12.6 % 12.0-14.8 [facility] Estimated glomerular filtrat ion rate (GFR) non- AmericanOrdered By: Josué Evangelista on 01-13-2023 GFR/1.73 sq M.predicted among non-blacks MDRD (S/P/Bld) [Vol rate/Area] > 60 mL/Min [facility] Glucose [Mass/volume] in Ser um or PlasmaOrdered By: Josué Evangelista on 01-13-2023 Glucose [Mass/Vol] 82 mg/dL 70-100 [facility] Comment on above: ADA recommended refe rence rangeRandom Glucose Reference Range is dependent on time and content of last meal. Glucose of more than 200 mg/dL in a nonstressed, ambulatory subject supports the diagnosis of Diabetes Mellitus. Hematocrit Auto (Bld) [Volum e fraction]Ordered By: Josué Evangelista on 01-13-2023 Hematocrit (Bld) [Volume fraction] 41.2 % 38.8-50.0 [facility] Hemoglobin [Mass/volume] in BloodOrdered By: Josué Evangelista on 01-13-2023 Hemoglobin (Bld) [Mass/Vol] 14.1 g/dL 13.0-17.0 [facility] Leukocytes [#/volume] correc lesly for nucleated erythrocytes in Blood by Automated counOrdered By: Josué Evangelista on 01-13-2023 WBC corrected for nucl RBC Auto (Bld) [#/Vol] 10.3 10*3/uL 4.1-10.5 [facility] Lymphocytes Auto (Bld) [#/Vo l]Ordered By: Josué Evangelista on 01-13-2023 Lymphocytes (Bld) [#/Vol] 3.4 10*3/uL 1.00-4.8 [facility] Lymphocytes/100 WBC Auto (Bl d)Ordered By: Josué Evangelista on 01-13-2023 Lymphocytes/100 WBC (Bld) 33.3 % . [facility] MCH Auto (RBC) [Entitic mass ]Ordered By: Josué Evangelista on 01-13-2023 MCH (RBC) [Entitic mass] 31.7 pg 27.5-35.2 [facility] MCHC Auto (RBC) [Mass/Vol]Or dered By: Josué Evangelista on 01-13-2023 MCHC (RBC) [Mass/Vol] 34.4 g/dL 32.5-35.6 [facility] MCV Auto (RBC) [Entitic vol] Ordered By: Josué Evangelista on 01-13-2023 MCV (RBC) [Entitic vol] 92.3 fL 83.5-101 [facility] Monocytes Auto (Bld) [#/Vol] Ordered By: Josué Evangelista on 01-13-2023 Monocytes (Bld) [#/Vol] 1.0 10*3/uL 0.0-0.8 [facility] Monocytes/100 WBC Auto (Bld) Ordered By: Josué Evangelista on 01-13-2023 Monocytes/100 WBC (Bld) 10.1 % . [facility] Neutrophils Auto (Bld) [#/Vo l]Ordered By: Josué Evangelista on 01-13-2023 Neutrophils (Bld) [#/Vol] 5.2 10*3/uL 1.8-7.7 [facility] Neutrophils/100 WBC Auto (Bl d)Ordered By: Josué Evangelista on 01-13-2023 Neutrophils/100 WBC (Bld) 50.7 % . [facility] No Panel InformationOrdered By: Josué Evangelista on 01-13-2023 Estimated GFR () > 60 mL/Min [facility] Comment on above: GFR estimated refere nce range: According to KDOQI guidelines, <60 ml/min/1.73m2 is sufficient to diagnose a patient with chronic kidney disease. Pharmacy Creatinine Clearance (Chem N/A [facility] Nucleated erythrocytes [Pres ence] in Blood by Automated countOrdered By: Josué Evangelista on 01-13-2023 Nucleated RBC Auto Ql (Bld) 0.1 /100{WBC} 0-0.5 [facility] Platelet mean volume Auto (B ld) [Entitic vol]Ordered By: Josué Evangelista on 01-13-2023 Platelet mean volume (Bld) [Entitic vol] 7.8 fL 6.6-10.1 [facility] Platelets Auto (Bld) [#/Vol] Ordered By: Josué Evangelista on 01-13-2023 Platelets (Bld) [#/Vol] 268 10*3/uL 150-450 [facility] Potassium [Moles/volume] in Serum or PlasmaOrdered By: Josué Evangelista on 01-13-2023 Potassium [Moles/Vol] 3.7 mmol/L 3.5-5.1 [facility] RBC Auto (Bld) [#/Vol]Ordere d By: Josué Evangelista on 01-13-2023 RBC (Bld) [#/Vol] 4.46 10*6/uL 3.90-5.60 [facility] Serum or plasma anion gap de terminationOrdered By: Josué Evangelista on 01-13-2023 Anion gap [Moles/Vol] 9.8 mmol/L 6.0-15.0 [facility] Sodium [Moles/volume] in Ser um or PlasmaOrdered By: Josué Evangelista on 01-13-2023 Sodium [Moles/Vol] 136 mmol/L 136-146 [facility] Urea nitrogen [Mass/volume] in Serum or PlasmaOrdered By: Josué Evangelista on 01-13-2023 Urea nitrogen [Mass/Vol] 11 mg/dL 9-23 [facility] WBC Auto (Bld) [#/Vol]Ordere d By: Josué Evangelista on 01-13-2023 WBC (Bld) [#/Vol] 10.3 10*3/uL 4.1-10.5 [facility] XR cerv spine AP/LAT/FLX/EXT on 12-06-2022 XR cerv spine AP/LAT/FLX/EXT [facility] [place] [address] [place] [address] XRay Report Signed Patient: Rosa Eastman MR#: [id number] : 1965 Acct:[id number] Age/Sex: 57 / M ADM Date: 12/06/22 Loc: XD Room: Type: [facility] Attending Dr: Josué Evangelista MD Copies [...] Erasmo Maddox M.D.12/06/2022 2:26 PM Dictation Location: [place] [address] Transcribed By: [facility] 12/06/221425 Dictated By: Erasmo Maddox DO 12/06/221421 Signed By: 12/06/22 142 Normal [facility] CBC AUTO DIFFon 08-10-2022 BASO # 0.2 103/ul Critically high 0.0-0.1 [facility] Comment on above: Performed By: #### C BC #### [facility] [address] [place] [address] [address] Mars Sanders Basophils/100 WBC (Bld) 2.0 % Normal 0.2-2.0 [facility] Comment on above: Performed By: #### C BC #### [facility] [address] [place] [address] [address] Mars Sanders EO # 0.5 103/ul Normal 0.0-0.7 [facility] Comment on above: Performed By: #### C BC #### [facility] [address] [place] [address] [address] Mars Sanders Eosinophils/100 WBC (Bld) 5.7 % Normal 0.9-7.0 [facility] Comment on above: Performed By: #### C BC #### [facility] [address] [place] [address] Dr. Mars Sanders Erythrocyte distribution width (RBC) [Ratio] 12.4 % Normal 11.0-15.0 [facility] Comment on above: Performed By: #### C BC #### [facility] [address] [place] [address] Dr. Mars Sanders Hematocrit (Bld) [Volume fraction] 41.8 % Critically low 42.0-54.0 [facility] Comment on above: Performed By: #### C BC #### [facility] [address] [place] [address] Dr. Mars Sanders Hemoglobin (Bld) [Mass/Vol] 14.0 g/dL Normal 14.0-18.0 [facility] Comment on above: Performed By: #### C BC #### [facility] [address] [place] [address] Dr. Mars Sanders IG # 0.02 10e3/ul Normal 0.00-0.03 [facility] Comment on above: Performed By: #### C BC #### [facility] [address] [place] [address] Dr. Mars Sanders IG % 0.2 % Normal 0.0-0.5 [facility] Comment on above: Performed By: #### C BC #### [facility] [address] [place] [address] Dr. Mars Sanders LYMPH # 3.1 103/ul Normal 1.2-3.8 [facility] Comment on above: Performed By: #### C BC #### [facility] [address] [place] [address] Dr. Mars Sanders Lymphocytes/100 WBC (Bld) 36.3 % Normal 20.5-60.0 [facility] Comment on above: Performed By: #### C BC #### [facility] [address] [place] [address] Dr. Mars Sanders MANUAL DIFF REQ NO Normal [facility] Comment on above: Performed By: #### C BC #### [facility] [address] [place] [address] Dr. Mars Sanders MCH (RBC) [Entitic mass] 31.4 pg Normal 25.9-34.0 [facility] Comment on above: Performed By: #### C BC #### [facility] [address] [place] [address] Dr. Mars Sanders MCHC (RBC) [Mass/Vol] 33.5 g/dL Normal 29.9-35.2 [facility] Comment on above: Performed By: #### C BC #### [facility] [address] [place] [address] Dr. Mars Sanders MCV (RBC) [Entitic vol] 93.7 fL Normal 80.0-94.0 [facility] Comment on above: Performed By: #### C BC #### [facility] [address] [place] [address] Dr. Mars Sanders MONO # 0.8 103/ul Normal 0.3-0.8 [facility] Comment on above: Performed By: #### C BC #### [facility] [address] [place] [address] Dr. Mars Sanders Monocytes/100 WBC (Bld) 10.0 % Normal 1.7-12.0 [facility] Comment on above: Performed By: #### C BC #### [facility] [address] [address] [address] Mars Sanders NEUT # 3.9 103/ul Normal 1.4-6.5 [facility] Comment on above: Performed By: #### C BC #### [facility] [address] [address] [address] Mars Sanders Neutrophils/100 WBC (Bld) 45.8 % Normal 43.0-75.0 [facility] Comment on above: Performed By: #### C BC #### [facility] [address] [address] [address] Mars Sanders Platelet mean volume (Bld) [Entitic vol] 9.4 fL Critically low 9.5-13.5 [facility] Comment on above: Performed By: #### C BC #### [facility] [address] [place] [address] Dr. Mars Sanders PLT 251 103/ul Normal 150-[address] [facility] Comment on above: Performed By: #### C BC #### [facility] [address] [place] [address] Dr. Mars Sanders RBC 4.46 106/ul Critically low 4.70-6.10 [facility] Comment on above: Performed By: #### C BC #### [facility] [address] [place] [address] Dr. Mars Sanders WBC 8.4 103/ul Normal 4.0-11.0 [facility] Comment on above: Performed By: #### C BC #### [facility] [address] [place] [address] Dr. Mars Sanders D-DIMERon 08-10-2022 D-DIMER 0.35 mg/L FEU Normal <=0.59 [facility] Comment on above: Performed By: #### D DIM #### [facility] [address] [place] [address] Dr. Mars Sanders D-DIMER COMMENTS SEE BELOW Normal [facility] Comment on above: Result Comment: [...] By: #### D DIM #### [facility] [address] [place] [address] Dr. Mars Sanders PROF 14(COMP METB)on 022 Albumin [Mass/Vol] 3.8 g/dL Normal 3.4-5.0 [facility] Comment on above: Performed By: #### H ALESSIO, CMP #### [facility] [address] [place] [address] Dr. Mars Sanders Albumin/Globulin [Mass ratio] 1.0 {ratio} Normal [facility] Comment on above: Performed By: #### H ALESSIO, CMP #### [facility] [address] [place] [address] Dr. Mars Sanders ALP [Catalytic activity/Vol] 127 U/L Critically high 46-116 [facility] Comment on above: Performed By: #### H ALESSIO, CMP #### [facility] [address] [place] [address] Dr. Mars Sanders ALT [Catalytic activity/Vol] 30 U/L Normal 16-63 [facility] Comment on above: Performed By: #### H ALESSIO, CMP #### [facility] [address] [place] [address] Dr. Mars Sanders Anion gap [Moles/Vol] 13.5 mmol/L Normal [facility] Comment on above: Performed By: #### H ALESSIO, CMP #### [facility] [address] [place] [address] Dr. Mars Sanders AST [Catalytic activity/Vol] 20 U/L Normal 15-37 [facility] Comment on above: Performed By: #### H ALESSIO, CMP #### [facility] [address] [place] [address] Dr. Mars Sanders Bilirubin [Mass/Vol] 0.3 mg/dL Normal 0.2-1.0 [facility] Comment on above: Performed By: #### H STROPN, CMP #### [facility] [address] [place] [address] Dr. Mars Sanders Calcium [Mass/Vol] 8.7 mg/dL Normal 8.5-10.1 [facility] Comment on above: Performed By: #### H STROPN, CMP #### [facility] [address] [place] [address] Dr. Mars Sanders Chloride [Moles/Vol] 105 mmol/L Normal 98-107 [facility] Comment on above: Performed By: #### H STROPN, CMP #### [facility] [address] [place] [address] Dr. Mars Sanders CO2 [Moles/Vol] 25.4 mmol/L Normal 21.0-32.0 [facility] Comment on above: Performed By: #### H STROPN, CMP #### [facility] [address] [place] [address] Dr. Mars Sanders Creatinine [Mass/Vol] 0.98 mg/dL Normal 0.70-1.30 [facility] Comment on above: Performed By: #### H STROPN, CMP #### [facility] [address] [place] [address] Dr. Mars Sanders EGFR-AF SAUDI ARABIAN >60 Normal >=60 [facility] Comment on above: Performed By: #### H STROPN, CMP #### [facility] [address] [place] [address] Dr. Mars Sanders EGFR-NON AF SAUDI ARABIAN >60 Normal >=60 [facility] Comment on above: Performed By: #### H STROPN, CMP #### [facility] [address] [place] [address] Dr. Mars Sanders Globulin (S) [Mass/Vol] 3.9 g/dL Normal [facility] Comment on above: Performed By: #### H STROPN, CMP #### [facility] [address] [place] [address] Dr. Mars Sanders Glucose [Mass/Vol] 102 mg/dL Normal 74-106 [facility] Comment on above: Performed By: #### H ALESSIO, CMP #### [facility] [address] [address] [address] Mars Sanders Potassium [Moles/Vol] 3.9 mmol/L Normal 3.5-5.[address] [facility] Comment on above: Performed By: #### H ALESSIO, CMP #### [facility] [address] [address] [address] Mars Sanders Protein [Mass/Vol] 7.7 g/dL Normal 6.4-8.2 [facility] Comment on above: Performed By: #### H ALESSIO, CMP #### [facility] [address] [place] [address] Dr. Mars Sanders Sodium [Moles/Vol] 140 mmol/L Normal 136-145 [facility] Comment on above: Performed By: #### H ALESSIO, CMP #### [facility] [address] [place] [address] Dr. Mars Sanders Urea nitrogen [Mass/Vol] 14.0 mg/dL Normal 7.0-18.0 [facility] Comment on above: Performed By: #### H ALESSIO, CMP #### [facility] [address] [place] [address] Dr. Mars Sanders Urea nitrogen/Creatinine [Mass ratio] 14.3 mg/mg Normal [facility] Comment on above: Performed By: #### H ALESSIO, CMP #### [facility] [address] [place] [address] Dr. Mars Sanders PROTIMEon 08-10-2022 INR Coag (PPP) [Relative time] 0.95 {INR} Normal [facility] Comment on above: Performed By: #### P T, PTT #### [facility] [address] [place] [address] Dr. Mars Sanders INR GUIDELINES SEE BELOW Normal [facility] Comment on above: Result Comment: EDU RED INR: 2.0 - 3.0 CONDITIONS NOT LISTED BELOW 2.5 - 3.5 FOR PROSTHETIC HEART VALVE REPLACEMENT 2.5 - 3.5 RECURRENT THROMBOSIS Performed By: #### P T, PTT #### [facility] [address] [address] [address] Mars Sanders PT Coag (PPP) [Time] 10.3 s Normal 9.0-11.6 [facility] Comment on above: Performed By: #### P T, PTT #### [facility] [address] [address] [address] Mars Sanders PTTon 08-10-2022 aPTT Coag (Bld) [Time] 29.9 s Normal 22.3-36.[address] [facility] Comment on above: Performed By: #### P T, PTT #### [facility] [address] [place] [address] Dr. Mars Sanders TROPONIN, HIGH SENSITIVITYon 08-10-2022 HSTROP 12.3 pg/mL Normal 4.0-76.1 [facility] Comment on above: Result Comment: CUT- OFF POINTS HAVE BEEN ESTABLISHED BASED ON THE FOURTH UNIVERSAL DEFINITIONS OF MYOCARDIAL INFARCTION. THE UPPER REFERENCE LIMIT (URL) OF TROPONIN, DEFINED THE 99TH PERCENTILE OF cTnI DISTRIBUTION IN A REFERENCE POPULATION, HAS BEEN CONFIRMED THE DECISION THRESHOLD FOR AR DIAGNOSIS. Performed By: #### H STROPN, CMP #### [facility] [address] [place] [address] Dr. Mars Sanders XR CHEST 1 Von [...] MANI HARGROVE Date: 2022-08-10 18:59 Normal [facility] MR head/brain wo conon 07-08 MR head/brain wo [facility] [place] [address] MRI Report Signed Patient: Rosa Eastman MR#: [id number] : [id number] Acct:[id number] Age/Sex: 57 / M ADM Date: 07/08/22 Loc: [facility] Room: Type: [facility] Attending Dr: Candida Alexander PA-C Copies [...] Rob Funez M.D.07/08/2022 1:37 PM Dictation Location: [place] [address] Transcribed By: [facility] 07/08/22 0698 Dictated By: Rob Funez II, MD 07/08/22 0687 Signed By: 07/08/[address] [facility] Folate [Mass/volume] in Seru m or PlasmaOrdered By: Candida Alexander on 06-21-2022 Folate [Mass/Vol] 7.4 ng/mL >5.9 [facility] Comment on above: Folate reference ran ge: >5.9 ng/ml The WHO technical consultation on folate and vitamin b12 deficiencies has determined that folate concentrations less than 4 ng/ml are considered deficient. Free T4 (Free Thyroxine)on 0 06-21-2022 Free T4 [Mass/Vol] 0.77 ng/dL Normal 0.61-1.12 [facility] Comment on above: Performed By: #### V [id number], T4F, TSH3 #### [facility] [address] [place] [address] [place] #### METH #### [facility] , Laboratory - Chemistry and C hemistry - challengeOrdered By: Candida Alexander on 06-21-2022 Cobalamin (Vitamin B12) [Mass/Vol] 369 pg/mL 180-914 [facility] Methylmalonic Acidon 022 Methylmalonic Acid 241 Normal 0-378 [facility] Comment on above: Result Comment: This test was developed and its performance characteristics determined by [employer]. It has not been cleared or approved by the Food and Drug Administration. Performed at: [facility] [employer] [id number] Pulverizer: Millicent Calderon MD, Phone: [phone] PERFORMED BY: [place] [address] PATHOLOGIST EMERGENCY VEHICLE DISPATCHER GENEVIEVE CANNON M.D. Performed By: #### V [id number], T4F, TSH3 #### [address] #### METH #### [facility] , Serum or plasma methylmalona te measurement (moles/volume)Ordered By: Candida Alexander on 06-21-2022 Methylmalonate [Moles/Vol] 241 nmol/L 0-378 [facility] Comment on above: This test was develo ped and its performance characteristics determined by [employer]. It has not been cleared or approved by the Food and Drug Administration. Performed at: [facility] [employer] [id number] [employer]verizer: Millicent Calderon MD, Phone: [phone] TSH DL <= 0.005 mIU/L QnOrde red By: Candida Alexander on 06-21-2022 TSH Qn 2.46 m[IU]/L 0.45-5.33 [facility] Thyroid Stimulating Hormoneo n 06-21-2022 TSH Qn 2.46 m[IU]/L Normal 0.45-5.33 [facility] Comment on above: Result Comment: PERF ORMED BY: [place] [address] PATHOLOGIST EMERGENCY VEHICLE DISPATCHER GENEVIEVE CANNON M.D. Performed By: #### V [id number], T4F, TSH3 #### [facility] [address] [place] [address] #### METH #### [facility] , Thyroxine (T4) free [Mass/vo lume] in Serum or PlasmaOrdered By: Candida Alexander on 06-21-2022 Free T4 [Mass/Vol] 0.77 ng/dL 0.61-1.12 [facility] Vit. B12/Folate Profileon Cobalamin (Vitamin B12) [Mass/Vol] 369 pg/mL Normal 180-914 [facility] Comment on above: Performed By: #### V [id number], T4F, TSH3 #### [facility] [address] [place] [address] #### METH #### [facility] , Folate 7.4 ng/mL Normal >5.9 [facility] Comment on above: Result Comment: Rosa M te reference range: >5.9 ng/ml The WHO technical consultation on folate and vitamin b12 deficiencies has determined that folate concentrations less than 4 ng/ml are considered deficient. Performed By: #### V [id number], T4F, TSH3 #### [facility] [address] [place] [address] [place] #### METH #### [facility] , Coding Summaryon 02-13-2022 Coding Summary [employer] 64 TlzlkiyaLXv0vAa+PGhl YWQ+VT0CECPdP14dwIHa cL6ZX7hMEF2JTXZNOEJD GF0VZN3xfYA1FPxpG0Tv biAv UxiyfCRzYH89XJu3IYY0 yYgpQXvymQ1viMCaH9d7 EaMqDH49cD30TLohQJGq NvL5CtJpjrkteIDb V8tpElHksEJrVkb+PHRh YmxlIHdpZHRoPScxMDAl NlVjkCgvVW0aJd6qVGEs LWNvbGxhcHNlOiBj x6tmZXDmVJuuHH7nhGqf B6IcuEI1LXLpy8p2Vs11 dHI+JPKpYRO7xLdaVNli p424NbUlb1zmLJU2 nHIjACitEVK2P80yj2R5 EMEoFAVqPWT4dEV7jZ9y nKtlrbacY8RjyPOdOrO6 BET5zLJkiV9ntPeg qhevrT5vDlc+P25QQX2I KUQZGJ9AIdh9E1FqLnrv dHI+IE87RQVbZK80yBZh pHKhl7wvhTn0TrKv YOLaGMT2eUswJAfmo3Xn JZRnC59atDFxd7E0MDUk jQznvJRnKgYdqTQ4eG6q TUiiqtnkq7ilqpbk Olvqs7byqq09lZ77F04d DDneKYDnSZW5ILOnHAHv oCwrkt0ozG9bWo8+IDxj o5uvh1jozEy9BcMo OCDjgqCasHtkGXS8q0Hi Pv51V5OdsYqfl5SxNel1 zx77xXRms1C1sRW1YYdl JRSwlM4uQClzMkI3 YDKvUjVciZ58eTMkBUls Ks9zdWxrvRfyIY7zSCDl agvdXDYtpO7vAMKbfTMf vZvzNI6jGUKfqcwv w187CcFzAVJ6MUOtmOMk M6JhjN1wDrJmWIEaNZBj A5BiqPArRMpbQ845KYge XzY8ILIhfqTmN2Qr FCZglJsnZvQ6z0A5Ib3B z1ZruhhqZHA8XAqtBND3 RdT5ErPrLsP6X1YhOwo5 LQPvvKouEE5sH4Sj JTAhnrjgjmsadLY0FEBx ATXpbE60jCJkCLvmAx2r g2B0h229WRPaYPNiaO51 Tm4crUdeNYMdbWLN lA9hsbfun2nkhuveErBu AOAsSFe7KPo4YRJdwTed WdTrUBZ3NiJ6ZEA2dEGj vS1kePieptgntA1v Oyc+X08wrA6cFPA1HFK3 tobdNEFnsmLyYJ99CI19 E4CnLwprsGXzmOL+PGRp ytYhqVtvFP3iYfAq w6cnd9IpQViyY2WvOSPf PNmfRob6AXDnEYY7mJU1 mJ4tYBOhQQwbp5C4vOV5 Y4KvorEgii7ig6ij NXZzBVqvW36pvSYja3A2 HXDptMI8XWFriZccKePh pY70Ejm+TEDxtRwkj9Oq Rkqpq1vzv0huvYf7 IjMwJSIgdmFsaWduPSJ0 r2YbNk05S07oKCxmOXNm LKJcZVCrVFQkgRyplf2v oS9oRf7+PGNvbCB3 bFE2tF0lGLRgLcG3WIln D363VbAzeHNvEetxv1lt n4jhcKs1ZcIpMQQqomJd vMgwVXP4x8ClEb19 X96jIQthJWXbCGEqZQQl EMEqdObplr3kaJ8iCr5+ SF8sq9tdpe99vM18oEL+ KKOeBUO4jJmoZXmg ODZbgY2mZIpdXdA6RXRy HoFkcV22tETiWZbzYa2t pFeqoVaeLW2yGHQxozpz g240WsMha6vqNHVu gTRyQJujVXN5M70ld0E4 DNJjWWUeQNM6sYE3lK6y bGlnbjogbGVmdDsgdmVy oFbjEReaDLywR409 IHRvcDsnPlBhdGllbnQg ZuJjHWs9V8SxQet9YKJw rXnoUA7hxOPmXSstMn0p xHpxwEfuPX4yRDVg mytrq887XjZju1zoEUAx vSOhUGreTKE7E13ml0F4 HITqBPPaYVR7aIC0eH5a bGlnbjogbGVmdDsg aeWcqKfbBAeuEVxuW881 IHRvcDsnPkJpcnRoIERh bEM4TV01MD77yQBxq0V4 jPL5H4ZwLMBmqvyk readuFN5HMTtOCSvhC25 Ja7ccKmkHt9oBGBkAZW6 ZRKwvRNuA3JuyD6zKwLg PBUtDTNsU0KoeOIv BUeyK705NXvtZzC6PTXb vcDtV0FvQFYtkGacKiT0 b7P6Im6PP2V7SD18FI01 qLCal0J3hRD6U9Ns NTNzikcbryflbRT4IXPl MFOksR59Ia8nxZelRh5w ZFVfXFB2MUGcmGXnC3Qj tM6mVvBmXEFmNYBw N1ScoIYkUDeoG222DLfc CpK2YQPzvyNdY7WfCFSy gBzzOpO4r9Z0Hf9PDIc3 XT52DN85sVVvh2S5 cTO3I1YbUYExrspptepk oZE1IYOrUGGdnO11Ef7g nKuvFx6vLUQzKWA2PRZm xFFyF0TgpC7eQzVz PTIiAIKdM5IlyVYpMXvu P256XMegLwV7YNXinmQg I3FoQFAxzCdiJaY7r2A0 Dj7NISZoMC56KSJ4 pUK3HU10KU08K3ZqNgst dGFibGU+PHRhYmxlIHdp ZHRoPScxMDAlJyBzdHls TR6tKs4bBYQoLAFe fMsxrISdBdQqk7quMJPg TWzyLM4hpQxjJ0HxnYV7 XOUvc1c7Gg48P46kC8Du dXA+HNEgaRD3hAX3 xH0mFkSjZjY8XAdxM339 CdWpcFDqMylww2wjp9qt gYh7AiB3KWUuoqFgbArk IGJ5a7PjNe37R04u IHdpZHRoPSIxNSUiIHZh cPnxgm6pyM4jBo0+PGNv dJP4fVI4aV9gVvQaKoY6 ZGamS400FwTvwGEq Ukdko9kyr8duiZc2EeUc FIZdyrOsiIbsUQU7t9Kh Bv00J2WrnZyod5GlAeh9 oq41nZTug4L0nCQ0 W4HcMKNjoxpcjLOlaCsj TX7pMEZknrllECGajN5y PJJxZ8u7MuSxJdQ9QVem M4CgwtY9SEXmvUEd IIppAAK4R26sv3J1GTQb EHVwBCA3cHF2mF0euQlz bjogbGVmdDsgdmVydGlj EZmqAKpbZ475AUUj xKqpQFCpvM9pCZXbnYDb mDsnBD6uDRXejbikRiVU W8YMZ03AWHGTR0MOKvYp OCvWWA85Q4XxFnd5 ONEtmVtnDJ1tbDToOZnn Hu3exJbruEfgGJ9vGZSs nrnlQOGahK1rHEGufRIh nVepTM5eQHZamljk m181RnZkQIR4YTSvuGHi W1HbsU4xQhVbZOTvPUBl S9TpfAOlIWdjJ586LBbx PbD1ZQFjhiDuJ8Wk MVXolJvqWvV5m0O1Zc9a IR7qHw0zQKN8VQ42XG76 nVJhy6U0zEL4Y4YfVZEn wdxunhusyWC8GGRl OGRonP14eJAyIItjNz7w c2N9s120VNMxYVVraJ49 Qt1tgDkwXAQhaVMEyG5j uvxqj5ddyszhRiLl FZZoQZu0KNk6KHRwaAxt PpYrUSH7EmD8MVC6pWDq jK2dmUqottynxQ1gUss+ MUPxERMbmvB8H1Yb Pek4BADpmQkcUO2ivBKy THjeTj0lbQemyTvtAW5x ERBlkxylAALunI3hWQYs uLOowDerCT3xYMFa ladmt494OtSwMRM9IBEs uMDwD0FbrR1zZqEyFZFh XBQyI8QmvDRmBPyiI450 IFcsAtQ8WUPbuwCa A0DbGYXflXbzFkA8j6G1 Lr2FTZxCMQ12AE56pUPt u0D3mLI8F4VqZXDttmpv tazbsIQ6TQIaDREr gQ98aZAyBIpvKp5ja6S1 f543STVsSOJlqT28Qx0i jHclKIMlqSBRlV2hcawp d1yflkfpPtOyXBFy EQq7XXq3FEOlxJdhKfHy BCI1GhB0GBB2vKSokJ7h tMxbitqmjJ9mUij+T1A8 N0RhCcmyaNR+PC90 VKMkCT38hGUdsZZss0yd oGh0XoEuMCMpIXO8bYvs SHpcs5KdFQYgE78hvBHk h9T0BDBaoNcuzCTi ZzFjlIK2oI6hGZggmypv l2czjqvgNnmhy0xjfg18 lO41Y89zVVwjZDJyYZKd QQGfMILeeZfboc9j gE2vEd9+YNRxiZF0uJM7 sR5cIcGmIfO0IOvvC329 OiRifBGqNvbhd4vvq5sh pTl9XnXlPREjcdIw fGtxGYY4f3XpGu86D63a IHdpZHRoPSIyMCUiIHZh vJmhef1zaZ1qTt4+PC9j i2cdai40mG18hKS+ ENHmNVE4aAusYJrkCGPl lS3sUTbxYiU5IPHoLdXp cR15xDFoQUvaOh6sxZwv sBmnEN0eHMUcercj i590JkUrm9qkMENgnBPc RUogIMH3M97tg5Z3JZWg JJOzRNC2eXG0tU0sjSrp bjogbGVmdDsgdmVy bFgvQGimQRgkO861DZVi ePrfQjWqhAKzL0fsswYG OA6cOskswBF+PHRkIHN0 dMyrRHvsGLFhtD4k CQTgG2u1BpFyPtE7VVnr R0VqtjW5JPLikWLbGQGx cIVFqA1somfvz2qhrbic OuItGRRjWWf8LLi2 OJGqiTpiYjEkZSW8HpH6 KQF6gLHfvW7afCjowxzd hS7bMow+RklOOjwvdGQ+ LKNkGGH6eMroNBfn KWNdrA7vIYGvJ3k9DsVc SoZ2NOjaL4YgqeC3DLOz mNJgXPUbvWSBrF6mgsgh t2ujgsfyAhUeNAQp CYm7BVx3YNUxmOocTwEf RCU6PjF3EFJ6gBWwqS2u jHqrmoeglT8lIwk+TVJO OjwvdGQ+PHRkIHN0 wRezDLdoQHEpjM0uRKAw I1y1HqUpGvC9ADbtD0Wl irO9GSBttIHyHQScrPNY nM2qfmjpc6kohfnc UpRpUPMiVQq1IHq8ACMl qFquGzLlQBW2KsZ4JZG0 vHGwtK4qvDsksehsnD6x Oyc+GOP7PEV4MC36 MF50R0DrQeryuLMuxQV+ PHRhYmxlIHdpZHRoPScx JNVvTvSvfZqfGE2fKz8i ZGVyLWNvbGxhcHNl OiB (more content not included)... [facility] Coding Summary [employer] 64 MbbncnooTKy4dUq+PGhl YWQ+JT4QXWUvY44kcPDy uN5TV3iALL2KIJXSLZSW TX8JSV1mgNH0RWqsW0Ad biAv NkdioCIgQV71ICf5KAQ4 tSefSKunyF1lzGRnL5s0 UvYtOY61mJ91OOqvVBJr VxI8DrYgboexoKCe W2bwWrEtsDMpCiw+PHRh YmxlIHdpZHRoPScxMDAl UpNfqJkcQG6nSo5oCCRc LWNvbGxhcHNlOiBj h0nvNJIdZJtkFD6baFva O1QymFL1NSImd0c0Vf73 dHI+NJJxPUB2mGngZZzn e849ShKxq1zvJJJ2 kEXtCOyqDDT1Z85fp2P4 NRFyESCxNLD9tBO9tC6n fKznwwqxO6HvpKKiVcK9 PTE7hHZmdT6hhNig vuwkaS7kZew+H97JZE9P KQXNAV1VNfz0S9LsJajl dHI+RH06GVGtEW53mBCj mAMaq3fmmVi7AvVn JZOoMYJ5rTnoYDmio2Le KQEnB44mqMSuh5R0BIDh gFhlhZIgPjZntZG6tK7m QNynwnqjd9nqrkfo Ijgxe2hipj55hP29I78e USizPLDxYED8GYTkXUVb wMsgpk4luS1tEd6+IDxj m1nom1tbdFs4HaCo FYAvnwAciIydSFI1g6Df Jt15M3WjnTqjl0AaXcq3 yx02nGYwm2X9zIY3VCbc PGDnoH6kJOonQmU5 KOLvIuPwfK26jSMyVIel Mz4ukKjmpYyjRL0oMXKf desrXFBqxW2nKWJuyEIf pQqgFT5jBIBgkbet e466KtWwAEN1DSXogEGt J4XqfB4bDeAlPPPoXWMd U0JdxMEuADoeR257ATle NtE8EOAejzDnX7Bx YOGghWlqYoY3w1U5Xz8I n6WrxlwuUCH4BTkxELQ6 ZvY4XbGvJeY1M9OjLbj3 XCHtjUtfOS9kQ5Ct ESRbnxwakhtmsPA6XVEt QTUodF17gFLuCEgoMm3g z7W8s852UNRqAMQssX85 Xb5rvTokQBTsdKMK iH6jtjvvi2hqvbmdCbPr CCWzELk6FFv0IXZmcMyc ShBnIAJ2QjX5NMF9hTVf jM3fzFrtwcgtkS9u Oyc+D82fxO5eIEM2RHB1 gbovVBDxeyLgIZ66QY04 P0DfHwqxoYUguUH+PGRp gkCrdLmiUZ9pTrTg q9njf6VqDZuvM7RlGWMg EPpiQyw5DDBdURU6nPD8 zU1yZZJgTVbbn0C2cRZ8 I7DrlxOnen4jz2cr BLImBAtaY02vbELkh0Z2 IDBfcRR7BJVmsFclTuJv uN40Tcp+XQPjmOiku3Gt Rtsct6qtb2teqYp0 IjMwJSIgdmFsaWduPSJ0 i9ScGt90Y85wJKlsGJRm DFLlQHYyIWKjjDnlsw5g pT2qJm2+PGNvbCB3 qPK5tY9zMYKvJwC7IEcp N968PzSikDLdVhqmd2bc d2uyuPf9YtBhXRWhckMg rAwnSWW7k7JeOd73 E61bNSpySHGmQIWxZJVr KIXrpWuumf0npS1aVx8+ IF8ot8geyb96kL79pPD+ RDFzNCV8qSfoDNfl STFjlK6nGHwjMqY4KYBt NeSkiB78gPTmPXklQw2a eYjfeRwlCV5nIALgihbd o487GwLln5diQSRj qBWyJBfmDPM5Y93bn5V3 YVQfZHBeBYE0cMO4kK6s bGlnbjogbGVmdDsgdmVy kHfwNJxjRRtqQ057 IHRvcDsnPlBhdGllbnQg TqWmAAe7X5DxCgz6EFFu gDsuPF8eeGZfLByrVk5l hMpmbTelTF9mMUSe lfant382MmWhy9drAKIq gNAfRWkfLNE2I70vo8I9 GEUaZPZcKEW3wAL9gD4b bGlnbjogbGVmdDsg xcHuyFhrQRteEKxnB083 IHRvcDsnPkJpcnRoIERh aNW1IA14OH50lIRdk4P3 lRD9V4JwJRGqwrkt jjgidSN1OWGdPYHbcB16 Vi5mmVquTe2iQOGfMKF2 UAFbgXOrR2QozP7gHtPl CIYeWOElN7HhjMFw COxdD785EYjsZaF6OEDc hoNzH5DvDTHaeYxoEzV0 b5S5Ba6IZ8J5BZ57GQ65 gTAiy3Q8zDG4Y3Zm EKTmgauonjuhwVU7HJEo VDNyfZ12Kg9ttKnjJn0v YLZsRAY7FIMabKGpK6Hf sS6tQaIrXSQeDHMk D0GagIZpLYxeB849CPja HuE2LCSaehKvJ6FtHZBz fUaxUzX7s9F3Kf8XRZm7 UJ53HV34iYMvu1G6 fGI7J9NkGGYxstzjxwce oMB5RVStPWQniX97Ge4v gLgjIr3aLWDaKZQ5APHq wMPkE4DqzZ2sWxPw PTRcTHFuS7RutWOmJEju U752CJmlGcE6FSVimfSg I1NxFLBpuGuzGxT6w6T5 Ep4JSVMsGC25KXH7 pRG0AP88GY40F0OgQsjy dGFibGU+PHRhYmxlIHdp ZHRoPScxMDAlJyBzdHls EA3pKp8mSXJvTHUh fYbteYGsEuNsn2eaGSGi PVfvPQ5fnDszO1WllJE2 LEMbz9i3Lg93K17vM1Xw dXA+IKWeeTN9gJH0 xL8bMmOaKlW3IWmjV167 DzCcdSWbInbxh6wqy9uc eUq2FnR2HBUcmwEryMyy LDA0x3QnOe53A72c IHdpZHRoPSIxNSUiIHZh bUlffm9brR5lIr9+PGNv oIP8rET4lG2tCgWkPfE8 HZwiB993OoPhuTGa Ovnbo1jui2xjfQl6YdLw YUNmmeFqjEdpIRF3y5Dc Xj50T1ErePdqo9VqNqw5 vv34xXVmx8N8zJE8 I6DtVNMgkmrhwAMkgYaj BT8qXPKpzwloLZKtqJ1n STZgB9t2BzPcJrA9ZWzd H6ZvwjB7BIErdPMe YEcwLJS5L89ed0Y2FIPi BRTuBAA7cHS0wP1qnJwt bjogbGVmdDsgdmVydGlj NJxsZZmiO201EPTq uSuwCISmkB5yXRKykQJb hEbmPS8iDHTjutdySiDM V1NUA11HOZQZS4ZZTkHx CApVPU75E6SqWiw1 HLKdzXndPL8osOPsVOfn Lb9kcCmrxBewMM8tNVFj prdlLXOnkH2mVHSydNNl uIcjQK4sZCRjjkbw f985ByUzITB4YZPrdRBp Y3GbkK5dQkRlZQKfPBKx E9PvsDEyTCjvE057DUzv AwX3KEDuvdDyC8Rp CADnrZnbGjG7x9K4Ki0e HI6cLj3eOXP5JQ82EK87 xLGho8T5lWM2E7NuILUa lgvaydfmbKO2AVEe RQYvjA51vJEcQZduKe0n k0U7q331OCTmILWexW94 Rw1aqHpnRFIqbWKYbT7z jwxzd0qihkrgHqOl EUJgJLs3BTm8CVSdsTrt XsAkJSQ9ItB6LVH9mJMk uD7ohEnojdyhdI2bDkv+ TGOeGLQbirQ4T7Ct Gsv8EWDkfJemCG8lkVYi QZrqFy7ddGxrrHftGL6o VQWharvqKHZgeP3oCSEs bTNbvLyiNM4wKDIa vgolf490JvRtCBO0LKSt zPUlO2BbdF2eIgJuJVHq BZIaS9YumUOkSKueB781 PLyfOqS8TKCtteOs N8ZhIECepYhoInO8w8N9 Lc6XTWdSLJ38EJ45yNCm t1T6xGT4O4YhEWQqenjs vxlyfWA6YATrYJZn jK80iLDgNScfIp6ic2M4 j289XAVbONMwdU06Nh0y iObpFWTueSLOkO9xdsez d6jecpwnIrOyVPFq XGv7UZs3UIQgqRjlBgGy KLM6XyI1DXY0eTMvtL1w dAxcenghlA9aKxx+RW1l nlixufG0WG90RI86 M7TtAcxeoHAigTM+PHRh YmxlIHdpZHRoPScxMDAl LnOkbGniAR7lVy6uDXBq LWNvbGxhcHNlOiBj h5exEZUfOVhiNH1aiTwg P1GoaMC4KNDrk8p6Io32 N21dY7AxvZR+PGNvbCB3 eZB9oP1bBgWhKfF6 JJhbY077RhUikQGgXosm b6xxk7yuwDx9XyYvVDVo nkEkhBtfXOD4u6XzJt53 H16rZXvvSTQkPYCs EDSaFGKrpAuovt7ulY2u Ii8+EKAleTW0kZL5tZ2f FdZzIfG9GWxwT245DzIr sNJmMihvU61iG6Dp dXA+IOPiEki2PSVehGta RX0bzRTsGXyjEq8cSDE5 WpPnOxFyAZkwS9InVMEl nkjjnazzcVL4CWYj COXhsP72On9kyRyyFu2s LNPvRES8AGGelEXgY5Bs nC1cEhUyQQZsODXaQ5Dg xTTqBCzdB415GEvj PgC1YUTzncJvV6SaJRCh kZqoHrP7d3F3Hj9KiGte kVSpVO1fXxScLAu7Y9Pt Qeu2GIIfuVsqUN7w tKLzSOqxYr3irVqkkSyb LC5rEVAkkiogs402HsXn y5tnQQYwpPWkRVesXRG1 R07so3J4LBFwGKJk HRA1dWR5mU8uoTantmwf bGVmdDsgdmVydGljYWwt UPmxW753UNGuqGabPxYF Kmc6L5ZwSah3OQRp eIzzFO9lcQGhNFvaYb5y rKawsSqxKD5eBQTipodw a357JvJqo4vmRSOdgFSg ZTokHMD1E14zs9U4 VKHaEVAfPIG7gBT9pI7h bGlnbjogbGVmdDsgdmVy fWwwATkkFKdpM222XKOg lYgtGy4SWsh8V9To Frh5ZVJjiKwzZY0dzJMw YZplUk4ctNqlvSefMJ8g YAZyrgrnp940UxVxr9hn IDEwcHQgVGltZXM7 T64aj5F0SAAsXYEhJRN8 pEU9jB8uwZttlumgfBYn dDsgdmVydGljYWwtYWxp I244ANHzfHmmMhQw eWVyOjwvdGQ+DV62rv84 R1TePbucDxh1RHXbLQZ1 hYI4qB5dLJBsUIsqb3N5 vAL1T4LbctJfvg3x b2x (more content not included)... Normal [facility] ED Clinical Summaryon 2021 ED Clinical Summary [facility] - Emergency Department [address] [place] [address] [id number] ED Clinical Summary PERSON INFORMATION Name: ROSA EASTMAN Age: 56 Years Sex: MALE : 1965 MRN: Acct#: Visit Reason: Hand pain-swelling; RT HAND SWELLING/NUMBNESS AND TINGLING Arrival: 02/05/2022 14:13:58 Discharge: 02/05/2022 15:08:00 LOS: 000 00:55 Check In: 02/05/2022 14:13:58 Checkout:02/05/2022 15:08:00 Address: [address] [place] [address] PCP: Britt Penaloza DO PROVIDER INFORMATION Provider [...] Follow-Up: With: Address: When: Andrew Mckenzie DO [address] [place] [id number] Within 3 to 5 days Comments: Diagnosis [...] for reevaluation. [facility] Return to the emergency department for worsening symptoms or concerns, acute shortness of breath, chest pain, abdominal pain, nausea or vomiting, or any questions. DIAGNOSIS: 1:Cubital tunnel syndrome on right; 2:Paresthesia of hand Patient Understands: Yes - Patient/family/careg iver verbalizes understanding of instructions given Comment: Normal [facility] ED Note-Nursingon 02-05-2022 ED Note-Nursing Pt presents to the ED with right hand numbness and tingling that started Friday. Pt also states swelling, none seen at this time. Pt states a hx of surgery to his right Arm for a pinched nerve 3 years ago. Normal [facility] ED Patient Summaryon 022 ED Patient Summary [facility] - Emergency Department [address] [place] [address] PATIENT DISCHARGE INSTRUCTIONS Patient Information Name: ROSA EASTMAN Age: 56 Years Date of : 1965 Reason For Visit: Hand pain-swelling; RT HAND SWELLING/NUMBNESS AND TINGLING Arrival Time: 02/05/2022 14:13:58 Primary Care Physician: Britt Penaloza DO Attending Physician: Lennie Wilcox MD Comment: Visit Diagnosis: Diagnoses This Visit Cubital tunnel syndrome on right (G56.21) Hand pain-swelling ([id number]) Paresthesia of hand (R20.2) Prescription Information: If you have been given a prescription for narcotics, seek immediate medical attention if you have any difficulty breathing or any sudden status changes such as confusion and sleepiness. If you or anyone you know is experiencing suicidal thoughts, mental health, alcohol and/or drug addiction problems; contact the [facility] 02/06 Crisis Hotline -Text 4HEPR to 213829. If you received any narcotics, sedation, or [...] documents With: Address: When: Andrew Mckenzie DO [address] [place] [address] Within 3 to 5 days Comments: Diagnosis [...] for reevaluation. Prescription is electronically sent to [facility]. Return to the emergency department for worsening symptoms or concerns, acute shortness of breath, chest pain, abdominal pain, nausea or vomiting, or any questions. Medication Information: The exam and treatment you received today in the [facility] Emergency Department were for an urgent problem and are not intended as complete care. It is important for you to follow up with a doctor, nurse practitioner, or physician?s social and human services assistant for ongoing care. If your [...] so we can reach you if necessary. [facility] Emergency Department has provided you with a complete list of medications post discharge. Please inform your manager food safety/provider of your visit and for further instruction on these medications. Any specific questions regarding your chronic medications and dosages should be discussed with your primary care physician(s) and/or pharmacist. New Medications [facility] [facility], [address] [place], [place] [id number], [phone] predniSONE (predniSONE 20 mg oral tablet) 2 tab(s) Oral every day for 5 Days. Refills: 0. Additional medications on your home medication list not specifically addressed. Please contact the ordering physician if you have questions about these medications. acetaminophen-hydroc odone (hydrocodone-acetami nophen 5 mg-325 mg ([place] 5)) 1 tab(s) Oral Every 6 hours as needed as needed for pain. latanoprost ophthalmic (latanoprost 0.005% ophthalmic solution) 1 Drops Ophthalmic once a day (at bedtime). both eyes. Visit Information Allergies: Substance Reaction Symptoms Type Comments Bee Stings Drug penicillins Drug Vi (more content not included)... [facility] Provider Orderson 10-18-2021 Provider Orders [id number] #[email or web address] [facility] Coding Summaryon 10-15-2021 Coding Summary HTMLBase 64 DmwzrnmyYIv6bRg+PGhl YWQ+PH6CSCYnF77btIMp fW9DV3qXHH5WPTFCZKEK EG1TRJ8nsOV1JOufF3Ki biAv YpyhbBDaTP61GCi5DZJ1 bMyvMRsbjL2coNZfI2m5 ZtBzIF94kO44ENjyRSLz VrX3MeEftzslrNXk R9pjDeMyiHSaBfv+PHRh YmxlIHdpZHRoPScxMDAl WbSexDkfVC9gJc2oONCz LWNvbGxhcHNlOiBj p8acFXEyKLchVO1ivWrc I4PjlPZ7LQSzt6b6Mj09 dHI+GKTqILY7mCbhRAei a289RsZvf6akPFB0 wXJfLWbrKBF9G35os2O0 EPIiTGMaBYL3wJI2fH8o bEyjbcziP8VfzYLjRkX5 LWV8oDLzhT6szJpe fzvpkH0iGvk+U18CHQ2J DMAWAC3LShl6G4RlYbei dHI+BX62UJMfAV75wPSa bUFpb7ifsBm0TrQu KKLgVSO9jQdsJNnru5Nj ZDAfZ68slJUiw1E1DTAg zUkvaDUwMqMcbPZ6xD8o HGdzftdbs5rcgjxt Oyvgv4wqsi99oE13Q57x CTdjUVBhULI5BCKmCILw nQpjnn1gcH0nHr5+IDxj e4lnl0vblSn0SkQu CJHhwdSnlCsnLZI8e2Fv Ra54F8NuwMoeb0XdYmp6 hn75zDHgb3V7uTA4JVvz RIXqdJ9pEUygGmO6 YHZbHiQfaQ69sPBvOKvn Vf1mpXqlpRsgIC0jDXEr kqqsBVKxtC4qVMNlnWLz mVpaML5oPZJotyln h034HlIjZOD1JDWfrJLe L4YtgY2gLvIdMRPwEQKo Y1QoiRHpIXvxL486NYhf KtW5XLUibqHdB4Qa RZOdnJkyXhT3g4N8Ax5D d0BxawwoTCU1GQlbGQGt NcH0KfCnHwD4H3EhBpp8 YLZzrWmtKC4gF2Lk UHDdfanvpdassZS9SLBh XZIyjI35dLOkIVbvSe4l r4B4k469MYUeABQlcW71 Wa2qtXedUFQygETE oF2npzrlu4nlkgczXlNs GRMjRGt6QXs9MSRbuOnx CyViOQM9QlW6GUP5rQOw nP0mxMcdoubjeR8o Oyc+K08atW2wTEU0ABA5 aoraAUVfruGeWR28NQ24 K8VfOtphbPFdtZW+PGRp yhSicZtaNO9kYoXe c7jwe3JeXRlsA2HyEREr QSpwVvq5PRDgOAC7jRW0 oU6kCJBvAZbin4M0rJR0 S9KkgtNkuw0uc5cf CQPvAVosG40kcZXub6V7 RTJwvIP7MODtaLckQdAn hV30Xoq+JYTciItdb7Ih Hneda1axj5qwhPq1 IjMwJSIgdmFsaWduPSJ0 i7EkLs07Q32xXFjoSEMy DARmGIDnXOJzzNuvqy1w hT2iYy5+PGNvbCB3 nLT1xP2cLWHyCzJ1BGbs E367AjBtdVFoGnncx0fg u3epjJf0PgFmDFAdqqHg vAfjCXF8q9NuSv39 K19xABtqZFCmIOCwURWt LPKgtHddjq1wqB6gFc6+ OI8vz3wxxf36gD94cEN+ BVYpCGB8mQmcWFuz EXOfyA1sIGosJtI6DQZa ShOmjV44qPMuBXurKa8t vFqqiJawGV3gFXCidjgw o046XxLqg2goYWDh oKTdNUpyJLI5R79vz8W6 ABImUQXdTBD7vKU6yB5d bGlnbjogbGVmdDsgdmVy pZltMLhwLMstN535 IHRvcDsnPlBhdGllbnQg RrVwLIi2B2LnEwu0AUYs fAlvKX8vnPVvEWkyLs3q bIhiaJlkYU1uWMAp cwsia641VuWsz7pqQSEp dHMdSRtuYNM7C12qt4K5 QMRuWVMiCMV8kRY6yZ4s bGlnbjogbGVmdDsg lnHriZpcPIiqFFrpK859 IHRvcDsnPkJpcnRoIERh pKM6DX73IU72mAQye0V1 eEO9J0VpKEAxmjax domezPD9VXEzLIKcfX50 Up3ivJitNk8hZAZxTYV4 IQYohGUwM8IlzX3wBtFl RJHtGNZsK0WiuCEu SDbcX031WYmfRjE8GCIy nyViY3ClPFXgwVmzNrS7 k6G3Tg3HG4N9GS23XN41 eVWuc1P3rAN2N5Wm ZNSpmxlzvserdRA9VSAb LBNpcJ01Wz4bwEoxOk1n UOXkFTO3TXEtkOEiR3Fz cA3iRnChUGBvVSNn U1NwiXGkQAwcX272DPyz RjV4NTAkxoGxJ6FnMPIx fKluNoE1o8V9Sd7EZKh0 QQ36QD40qMKyw1J3 eJV3W4HvLNCwlliqmjhl jUC5GRDjNLPakU25Cs5r uKhpUe1iKUUpVLJ4NAJr vTRzL3GumN6vBtNa OYEcTIDkZ5UxcBTpQRoi F144UCkdYzC4SDSsfbCm S5IyHEHohZxuCzQ1x8C2 Nc6ZOIMrBC53IJM5 oSP5PE40BQ58N7IcUerf dGFibGU+PHRhYmxlIHdp ZHRoPScxMDAlJyBzdHls GR7rQu6yRZDlCJAd vBhopVYxYlDmq5nsYBWu IZrlOV1ojWnmR7PpzIQ7 KMJhn6u9Nm68W74eU1Of dXA+MKUjoGD0eDP8 nG2vUsYpQsK6FHfhU960 MoFtjFSmZvqqz3jpl3yn sRb7LiI3XTFtvuBrqVqi JRW2v7AvAq01E85e IHdpZHRoPSIxNSUiIHZh iMhkdn3wdF6aWd5+PGNv tKW2fHF3gH8gShFcEiH1 PWydF718YcBkpUEm Rckvi2rqq4eucWf8OcQu WOJjaxJhqWfiUEC3q4Cn Zr04T9JuzSwvg0PfHcy3 sa90iYJax6X5iKM8 A9DkWCCueairrIYvlCxn NC7kWDRhrjexTELgcY4u APLlM9o9MoMoEsR5HKwo L7FzoaZ7VPLtdLQm LTgxLGN4J95pz2O9AENd KLRuSBU5bXB8vP0tzUdv bjogbGVmdDsgdmVydGlj BBbcLOmaI653GPOi dTkzLCIoyD6bYHIkfDTe tAkeHN7gSDKwhknkJvWK G4UPB93QICMLA5SPPcFn UIiXYT22S5QlVja8 IEMkxDukWE3qgYXvCLzx Bh0fqQcsuXfeQD5xKUSu ikewNJDzcG2mLZTwdZSt sZzuYV3kYOFwmiav b142PeFlNBJ0HTFlcALo H2CexX3pGhKeDRIjQGFj T8VizMNgIEbvG272GIss KlP3KTLohsNdV4Hd SVLeuUkkOxW7u5Z2Pm8b YS0bQl4rOVM4GG83TF47 iIUdu6F2oUJ3B6QkYAHg xjhwgzkcsNP2WSMd CRUtmQ68rGTbAJvsDn4k z4A9g377YKJwBUQvfZ82 Uc3ceNhxCLYtqUUIzB9p tqqga1sxetxdZcLr AQLpULh7DVd4XANzwEzf AvFyTXI0UfQ7QIE6uPOv gQ2jiJtrjvqbdP4iUvf+ BXQsFCLxweM4I0Zg Hjj6SVBtvPizXC2kuINv SHphDr7afAkcfMpcSY2v MWDqpurqKJOfuG6zBOYl sSQdmMmjBF3uXGCi vddzd624FdZgYEF5YKIu mZHoH2BgsZ5xWdOzJKMy YRNtU0YadPJyMBkgL493 AQafEpS4ZVUgcjVo N6IgQGAtsTncEyI1o4C1 Wu5AJQwBRM57BR72hBXa z5Q9xJJ6P0XbSZZrakvz xctfyVT5NXMkZKBa jF39aSSbDFavDy7el5W4 s562GRIiJGBweY32Qn5f iRpyOCOboYONnG7rgwit x9qccaotVkTyQFJv KRu7EAy7OXNknLpnXiTl XTN0GcL2GRZ0hLUfiX6j dDnxycqdeT8bWsd+T1A8 B3BpIzdgdBY+PC90 VWDfMO44sDGggVYca9fc xCx3QzYgEDOwARO5lWco SQwpv2LmQWEgP16quMIl r0S6PMQamEdonWRq TlFkyAI9xT3eCQotgamd v2mrgyhhAsumx4tlgj50 rD56P28qHEusUMQqGRGl VZOmSVJrlBdhab1u jA3gXp9+VEEihXY0rUL9 dH7tNlFuZuC6JShdU336 XsSodEGdVwimn2tes2qh uHj4VtXmPHJxcfXl eOuvUAT0t8XnUj73Q64x IHdpZHRoPSIyMCUiIHZh vAorms7fpT2uPn1+PC9j x9ayrg50rZ64vLJ+ IGYzYFH0nDhmLTdgATAb zN0eLWtaHbS3CHYmAePc zP63pLRiTGntVu5ruYgc bGuyOW9tXBDdlofa p718MqPxl4bwIKOfnZYk ADrvEIO4Z66sx5O4XWOt SIWwBEK5tLL2vC5gzJbx bjogbGVmdDsgdmVy wFvsBCiqLErwV231CQAu xEsaAlIifASyM6dpnzJA WU2vPhvlgFS+PHRkIHN0 aWjoGMgyTSZcpJ7u AHAlP7o3GeAhVuZ9DDpc T6TafqS4SLMhgOOyDAQr qKNYbX0blmzuq6lplago QpYzWORrRWp3FZf9 XILifJlkZtDfGDJ4YfG5 YOC1uOKbmQ7utSlcgoxk fN9wBbp+RklOOjwvdGQ+ XGCyHFW6xSxcHBje ISUwyV3tPGNaZ9o1AcCm LyF8GZnyL8UnlkS1ZEPu eANxJBYxmEUSbQ3txrlc q0bacrzbMdHqOOIv BQj3GLe8BZNseBcaXnXu BPG9UmG6HKF9gIXkeE5c cDomzowxiZ1aItr+TVJO OjwvdGQ+PHRkIHN0 oAisSWioTGUqtT4hTLUn K3s1OwFlAjM3OMraW9Jr mjC9LXGufCEdPMSfrBFV oS8wpxjzh2fhknzf TxWlWDOvHKb1YAl0NTQq tSnjQsNySMM6ElE4KZV3 yYYokF2bwRaootsiuR4j Oyc+JYM0PKT1SH89 FW79I1NbFkllwBIncMF+ PHRhYmxlIHdpZHRoPScx BIOcRxLnnKiwUV5wUb4a ZGVyLWNvbGxhcHNl OiB (more content not included)... [facility] Rad - MRI Reporton Rad - MRI Report [id number] #[email or web address] [facility] MRA Neck w/o Contraston MRA Neck [...] Torre MD 10/12/21 7:46 am Technologist: JERRI [facility] Coding Summaryon 08-30-2021 Coding Summary HTMLBase 64 FtavuylaKIc4uSg+PGhl YWQ+AV9OERStS99fiTHb qO5ID1yIXP3GITONVZRD JT8QRY1aaZU5DQakT3Hx biAv WxfpjWLiWV26QCr5XZA5 eYhxVLtezL9idWVrV0i2 XtKlCC66hN18PUcsWLYt WqA0RsLbiewfcXAv K2mfAcTuuGVmPie+PHRh YmxlIHdpZHRoPScxMDAl MeKkmZkbRR9vDb7xSZKd LWNvbGxhcHNlOiBj k9dkBPCiEKweKN7uuVul Y1TodOG7VKJkv2f1Wp64 dHI+QORkDUO0eRhpGJir l932OmEqa3ppEKG8 lFFgFWivZCN8Y23em1B5 JHHoPXBbAGJ0wAH3kN8m aKmotwvhT3TcsYBvNyK2 RVI2tUFygT1vsLjd clkxnG9pAtl+O40ZOQ0Q KOHARS8XMof5Y9WbYazl dHI+SQ87EHWrEQ59oGAm cSVxx5ushKy1HcTm OMPdHAB8nDhsILdnf8Je RZYzV00brQNfi5G6YPRr vVnolUGdCrCloIW7dY0c SCrzsnzzf3ddwbbb Wduqs2ydgs06hP08K00e AYyhJENuEWO9FXJrGJOg bFtggf1fmO4aYr2+IDxj b1kxe2ncqCj8HwQy CUAgdfGslXzuFDT2a3Cg Lq77W3ObsOpae5PdJnb6 ci59tTWyl8N5jQQ2AYzr BDIzoD7kLYacVzK7 AIXwXeRvlE86lKPxSXwo Yt7uyInwtDfvGX9pNILe lwhoDBIdeG7iXAAmeKEw cUbmNK3tFWKozbah k905QfXsYEF5HOZwzKBy E3RhjZ9xSgJxZTYaIUTl R9KraWAtUYhbX371SYlg LoT1QKEwnnOrF9Od JAXtdNfcNlN1m4N1Pc3N f2ZzopjiWUZ7NCahDTFh OsTsYhEqLqH3H1OpRvs0 RWOznZddEN2oU1Oe IPDzuhkggmjqqYU3WLSi USQilS50aHHyWIyzOa0e c2Z0a048QASvJSPgxP04 Wn4fpIabTNTkrNHC tF2brzieg1iqjebmGsKh ONSeMKs9DZe8ZADkcNle RkMjZLY6OzY6FQR9pLUu zV9oxThancpomD4r Oyc+D28pmN6fAUS5QFH8 fxswQJBibjPjXL53NV15 W9UmYxdxiJKuuQM+PGRp yxMbjWvdBS1oWxGb f2nsm7QyXNryU9UrQRTz PUvyVil7NACyQLZ4bOF9 pQ7nDFRdLVbjl4C8vZR2 D3HgsoNwkt5cs1cw IAXvWMjnB91kfXYgd6W8 YZXisUF6FMMqoIubWpLu yA08Niv+QKRrrWoeh4Bi Tppjt9noq5wgmQj3 IjMwJSIgdmFsaWduPSJ0 u5BlCu45F73hXIzpZTBi BFYtSBQhRDAxoDeouz6w jY0bZm0+PGNvbCB3 pVM8fN8kCPJkJqZ8EJgr P538EpFpaIEwZrmrl7kq e6mvbQx1FhRsYVXifmKh aUknZJN7z8XyYb94 J92zDZqtGNKpBLDdBWBs DBJxiYwdqe8xvD3aWr6+ KX7hh3yevp57eV39mNU+ JDRrCAM4rUscZUqz BGRprC0xUMxbZaJ6IIMo XcAdqW84wGZxXRdaCk0b nRzjyBrfHP8lCJCuoddq u366JaTrs0kxUHFm qBDiIHdpTVM5J85op6R4 LMUlTVCdICB0nKR8mL8g bGlnbjogbGVmdDsgdmVy qPtnIIhhOMqaA400 IHRvcDsnPlBhdGllbnQg BpApIYq2B7TyLxx6OGKs kMgaMQ5jhEEjXPfpBn2d dNlbkIovAP2rTEUx lpmme152ZwKqn6czIENi zVNbGGnaXVB6Z26vc9U3 HIHbHEAdYPB0yCD2nQ6w bGlnbjogbGVmdDsg toMesPftQKynZXuwP349 IHRvcDsnPkJpcnRoIERh hQH3PL84US67nTIim0V3 kAJ8P0BrTDLqqyit gvyajGD8LQRcNIIltN97 Ii8wqFeaEd0oYWBqFQM2 RDEzdUDgJ6CcwF9sZiIp ZHQmBOYkE7WjiXMd EAavC574INrrWtQ2QVBu zoRmD6UhKGSxmZzmOsM5 k9A7Po9EX9S6DS33OB99 kOHtd7A2fZE3W4Bf PVVgoxrdjuxgpOX9LOKr VSGnbH99Rt4vsXevQh0k ZPLzHAM2KCIptKVkI3Vd kO2eQzVdQHBbAVDh K4RneZWnXWmzN761BXye OkZ5RJBrxhEhH7LqVIWj qRyyMtJ3l3I9Wv4QQEu5 XU44JC46eJYgt5I9 vVZ9G9FnLNIllkkhozkx lCM3EKOuDUHmiS23Gz5b jJpeTw2uPNVgHGE5QPYe sVAcM2ZfpT6rLtTk LHJgRNAjG0WizADkCXvi F506IOaiNoV0ZPFacgNv Q1YeEWLenAswIcM3d1H9 Vk1BZNSqYE75PPG9 tCA8HV07LH13Z5EyRevt dGFibGU+PHRhYmxlIHdp ZHRoPScxMDAlJyBzdHls DQ4xSu8rTBTaBAGa vYxdpIDkTaCsz8vgHEVe KLovPA6bfVndK2AleMG9 MMTht2t4Vm89Z90uF9Xt dXA+NKQxkTW0nJE4 zW1uMoRoYdU2PNcmB739 NdMdvRCyKcmfr5dcg9jg hXb1MpT0IOUnmkRwkGqr SDF5k1VzJp26C58f IHdpZHRoPSIxNSUiIHZh sIgxas1nuR3hHr7+PGNv kJN0jJE4mU3tEeVuRnS4 ANsoR862KxOcyAGg Iddcf5btl6ihzOt8RnIb HVQouoUcrBjhFZB8m6Up Qm87U7KwqZstx0ApYqc7 kw37hSBqx1Q6fBN0 A9BaKAJltbkytIMcyAdi FU6jGROarznhZYPfzQ6r OPTcR6p1DpIxOoT7GXxf R5BzbdF9OPJasBKw HNrrWPG2B08ki8P4LCCk SSLpXJM0qCE4kE8elVpf bjogbGVmdDsgdmVydGlj EItwLKxtB641ZIAc iUczHOKnwQ9sJEFexMSa vIzfNU2uDIMesntaNmBI T7ZBR65MAFDDL8LQTdNe BScPPN91T1WiZce2 TJRueDklQC7wvXHoERaz Jq4zrDjacBxrSM5iXKVd cbybZGFfmS7gTPQikXEc zPcxOX6dCNBuamop l712OjOjMGK7GXImgTJg H1OqbW1lLhKcWBQkMGOd T8TgqXUwUWpfM118AIct JfM1PFSbxyIxH0My ZQReoQlyVkY8q6Q3Fb9f GJ1gNs9fWQJ1HK50QJ36 aBIfy4U5bPS8C4QxPVPo odyzczbwnZF5HFEy OFOuuJ77gKVnOCbyJi2q j0U2v080NHSbDHQheY58 Cm9jqKftJNXmjYIXpH7p iaumb9wckxuxAxSt HAWvLEp7WUt1NWMpnErn UrQgOVH5BiO1QBI8mZAt bQ2slRjpejypkW6zJvm+ OXDhDIScxkM8A3Fl Plw6JWNkhVejOG3hmYKk VNliNx4zzBxguVwdSH0m ZXRlpjldAQDxyL5fDBXi iCGchDjrHJ4oMPMz pvqbk909WyVpSRK9CHVa hIQpM1VjfV2nRuIeUZJb FCAuB9KkuNCcDAabX051 KImqLxS2YKTwdnEn S1SfBMNyyVbcKyT5c3P1 Wh2KQIlGXK44KK70jEUx q5N8bIQ2Y2QsXMRzwtkv sbecwUL6DNOgLOBk sV53jZYsRNpwVw0xu3F8 o642DHIiVICxpK03Ja1q vRylUDJtqOIIsP8wteef m5begbcdLlKcWIRu LXc7IZf7NGAwiTdwOaUq UEU8EnX3YXQ8fLIiqY7j oJdfxrdlnY3nCph+T1A8 G3FoScedtUG+PC90 SRTlRI21vRAicRMps8gj kGi7RlVaRUSbEEX1cKsm GQloj8QqQEHmA31jnHVh h7Z4GOVgdCzwpKLh WnMjzWE8bA1pMHaebqhi i3obqjpuAdwxy6wamd74 sC21G93wRNghZYFkCLIk ETDySUIjoSyfym6o lB9nHk2+MJXtsZI3gSE4 fY4jPjZuYqA8PMogY124 UzAjnTNzEicxs0oaz6gj gGi4YsAxXCFgotBr wPupVNO7f8IbMh41S56s IHdpZHRoPSIyMCUiIHZh dDopgi9kaE1mUv4+PC9j i2fujk41uF36lLU+ DLCaGSS9gOqrJAddDKBu gF7fZAcoHiZ6GJGoYbYr wB76dFPiVXtyNo3xoKkq dOagFI5oVCGucbzv n703WvQba7lqPHRmaVJk SQapFDE8B46jv2B4CCGo OXMsQAA7oED9tX3lyOgq bjogbGVmdDsgdmVy kDweSJmtJUgaS723FDVq zHlwJpUnkBQtJ3frpvLA BE8wIobhsPH+PHRkIHN0 gZtuSKsnAXHbkB6k OUAhU9l2CiTyMiB2NMbu X6JercZ0ZEOeiCUvYUJp aZPTmI0ypasht4inmzzk NhBiTYCuIMu3ZCl4 TSKajEsiRiOuBJH0ZfD0 QLD2jJOqyB2vkOvpwgjb yA8mByd+RklOOjwvdGQ+ VBTnHHQ7yYzwCUjt KTMpjX8pBONiY8o9FtMp YtP0RWzuI1YtypT9LGVd jIJvTKWbwWXJoC1vrwtq b5jiiwbzQtIlEJWp DFk6NUp2TYYwiRyeVdMs FCG3SqE6JCC5lZWgfB6q iJwtqhjqkD1yEcy+TVJO OjwvdGQ+PHRkIHN0 oWozAHzhMYFjyH1tJPEz E9j0FdEaWqG9YUsnS8Wv bnS3HDGkvXSiJJXqoMZZ bU6qqayhg1rzcurc PlSyQJAcXNk9WDp8PABj zJcjCbGzFRG1UtN4QOF6 gAChfA8bpHljerhqzC3f Oyc+MIM2ORL6DF11 XE26F4HzKxpviLTknDV+ PHRhYmxlIHdpZHRoPScx ILZtYwFpyPctNY0aBa7o ZGVyLWNvbGxhcHNl OiB (more content not included)... [facility] Coding Summaryon 08-29-2021 Coding Summary HTMLBase 64 OihssvunUDh2wPf+PGhl YWQ+VX2RXEPyJ10hoLCb lE1XO6lRFM1DEHGYGPDN TS3ZCY6omSB7QQylZ7Zv biAv KthbfHHxML41BXt5MHJ0 mOudRSykbB0sbXYrV7x2 WuRsYJ23qS06XSraOMSl ZcC2VqXcrtlwpSLq T8yeIfBltPMfPre+PHRh YmxlIHdpZHRoPScxMDAl EhAmtNweVG1oYx9qVENz LWNvbGxhcHNlOiBj d3nqCHUoQMawHI7csGqf V3DtxMD1ZJMvy0s7Qc26 dHI+CGDcYJJ0pCxmDTaq l022NgTul9nrAEG4 aPSlFWmjHUN5Q67vw2W0 HGYgOGTzOZK0sRV6tA8e vHjysiriU6JogDTjVlM0 CIF4uIIcxH8aeLsz kzwmgZ3gDfo+P25PLB8Y FCDFAL5XVgc9S8MpEvsn dHI+XH68NTIrBZ25rDPe wDVvt9uvuUc7VuEn JPDlULE0pQopXAsuv1Cw RDVqG73bvDSzu8M2IKGc xRxryNWoZcAmcUK0vV4q LYysfjink4qgnzga Cmoja2rdxm63qO03Z66i SCzfRPXcLLD4UBNpAIPe cGwubz9foF7hLa3+IDxj g6cor1sdiYa2VaMh SRVqwvRvwBgwXGM7w6Jx Pc32U7DfdLhxw5LiTcv8 pr36sEMqz3O7zJV2QUdg MAYjjC1lLZzyRfG2 IKIkZgYsyR93iDWqRGft Xg7oeHgzqCeiWL7wLSTe mcxrPUZwgM8kULYmrBOc wDqkUW7xNQKpbizd m414TjRaPWH7CDXqiAVl P9MudS8bCeCwOWXrAYFm G7JugCDsGIdoF971VJjf WdM7RLVnzwMwY5Fs ASUbpFnoRuI6r2V9Pd7W b8TwxqanAYU1FCgrBWYi PrSsJpIoBpY2O1BsLeg7 SPDfeGcrMZ5fH0Wh RHKyiucmofgnjNR5XMHl ZQAgoL61rHAbCKclMe9c b4V7l580EIHyISKyuN34 Lk9tmViqBVLasEZZ eB3crjxej1rerdskUjZb AKRhIUf3OZp7FEDuoMrk DcNbLAH9KnE4XTB1lBXj kZ3daGfjechhsE3c Oyc+H54fsR3pABW0NEK4 alypQRYtrpYuIO81IH67 P4ZaUtwpvTXazUC+PGRp gjWnxZxiOM3yFxMj x2dyh2YrJHeqJ0OqIPWk DKgaBbt3ZTLkSEB6lNV9 gN5sQUAnDPztc9S3yOM3 K8TgvdMmwb5ru3mo WUOtBHppZ04yxDZpz8K7 OUTmaQA3VRSgsDedVtBy rC82Mvj+TSOncAsfw1Qs Rtsan3nfo4sptOp3 IjMwJSIgdmFsaWduPSJ0 p6SvLu84M21tELpnMVLm UANvNCRwOCQdiIfnxb7d zB2tFg3+PGNvbCB3 aUY0dY0wOJWwXkO1ZKhd U834HnFhfKYyKnybd9ce z4xwaYb0PgMyKTEmixUr dQssMQG8d6XrIs23 Y88aHXdsVWFfQBGaVEZo TEMjgVjwgn7npD2zAn3+ OO5cv6hvfg75lW62nDX+ YFQmHZG3oBkrUEds XXGicP6iWApuPbJ1NSNt TpGatS66jNYlPJcjUx3c uKjtoTtjJV3fNWUxalcs o527RwYyb9mtOXGc mSIxNUadWCI5H06fm7P8 OIRfCUAvXFL8rFM2oV3i bGlnbjogbGVmdDsgdmVy nEatMScjOIwpY488 IHRvcDsnPlBhdGllbnQg XlCuASf7G9NcRll1NHFt nWduTT9yqMIrETyaQe8f gMvttFuvAZ6fFEGy xiuiz830NtSxt2zyQIZs zZOnPMsxODW6P86wk3T7 DAGsSAPjSRT2vZV6iV3t bGlnbjogbGVmdDsg tpLjoGphJFaaLFcsJ264 IHRvcDsnPkJpcnRoIERh iXK7GP52BU51jXXya6X1 iKX3W4EmHQZqdunj kluyhWU2MNZrENEfjU98 Yy5ncRuwJp2uDAKsTRV1 YVBsyAYqD5GeuS0yLdWk CINzMWQfL5JidOQz ERtiE195TCgaHtU7IOOk rhHqA7YuRWCmfYcuXwK1 w7C6Tx3YI6Z4OU46DL43 aQIai2L5dCV1O3No HZZhkhwbfwbjsMU8TTQu VWYrdF25Od0nhOgzSw3y AVCnAKU4YTIrhLWtQ6Nu hS5fTvKbTSSkYHMs E5SbySJoCRlbM302RMqi FkI8NYReqlLeY3QiJETl lBgqNcL4k0D7Be7LVOu2 TZ04QF20fPUxk2B8 tUU9A9GaMPQhspzhffkd vSS2KWXmCGEjrX27Qx4k sQrwWz4kNLGmQJP0OIGh zJIuS4ZkqD0bRpDq AOPmVVOdB8AgyRWkVJqg Z302UVqaRnP9XRUrtgJg N1YkDHThxUghNxB0x5L6 Wk7UVXTtPN91DOY8 dOH7UP45WD12M2QePgjz dGFibGU+PHRhYmxlIHdp ZHRoPScxMDAlJyBzdHls DA8yRp4zLACmXOIt dKaelJPzWxJkp3jcOFZb UTrsYN5hsMvaC0PgiEH2 DDGaf7l0Pp94N92iY3Ai dXA+EEVgdDB6tQH4 wC7hDsDxBmA2YSurL629 VzPtwFWfQvsda0ayn4fi wNm0WpP1RLSamxFznTpo IHN4h4OtNo19S93h IHdpZHRoPSIxNSUiIHZh sIoojg4emC6mKj3+PGNv zCW7iDG6cC5qFfYgMmP9 OPrxW846YtMhrKNt Ylrdz9eaz8zjlCr9VvEq ESOkvnZmdVaiCYI0y0Kq Uk59N9ZxwWhpd1XpDxd5 xz16uRNei2C4oTR6 I2HoMRWsxixccHJgdQan JO8wMQVxywvpRGSblK4i QXUoD3k7GeXiJoE7JQbw V3BpviG9YMHkzHFv XVmbOJL3D00dk8X8GRWt VUEnRZO7gZB7mB5sfPba bjogbGVmdDsgdmVydGlj CLyyZDrqI739XIIo hVyvLTDpiC2jRYPstPVp kFleGP6qAPSrrfzmVmFN P3JEN42JIFPMH0XMUrIt SKmTQB82S2CkPvp9 QRMgjMspZN9hkKAnZCmt Eo0fuHibaHwdXA6mGPWb pauyQYZmqT4dAZPoeACf pFneYP8tHTYfvquj f276MyTtGYN1OWLrxMCj U4HoxV9sLmYrOMVyFBAm W6FghKGkRQwfY081PDvc CkP7YLOdpsNyZ8Ej KDRmkKhwSwI5o2A1Cr4x YQ6eMh2rGZG7OC55KR60 nFHhp3J2gIH8K9NlQUEf rqiypaxtyIV8AUHq JXKlwU22rXVpAHnpCe4j d4Q0m691SIPwTOCemG71 Rt2xwWcmQCSzsAOOnK5x xrtik4tucowjAiLf KRUoOUc4UWo8PZRieCep FkUfABM8BtS0MVL1iHRs lQ3paOtflormhM4pEnx+ HWLqOGAadyY4L3Uj Gcb1ILSvmNnyVJ1dyAXq WQmnJc9imFipbXlvSH3t DQOumzneVPGmeF3xWZJu iQUuyKzfCU9iWDLq gtgld697SbJbCNG6QDJc eOJmV4FezS4sSbBlLWVo QFHaV5SmnPUzJRkpC121 BPeiUdA9ZYSwzmCc A4WhVPDqnUemVuF9x6Q4 Ff2WEReJPK55RW71oYKk b5X7uVN0H6VaDRMfjjxo pnqozTH3KMYbROTy eG87qMZmVDfrQf2uf1A7 u475CIGcPQDybZ55Am2r eCsoTJMbvTZIiX5cqogt j8ryascsYoFgMCXx RRu7IKy0GQPlmUssSqMp PBC1FeW9ZJA1sFRpaU1z rXyzfabdwM5bEwu+T1A8 P0DjIphbyOV+PC90 KNAmYA97aBAsaEYbb3mf oFc6PoDoWKEqMIR1sVwq LMevw8BaLMSgP89xjLNg n0E8BJKkvBevqSTj BiJoiWZ2aY5zYDwoabuu w1qoungoJsyob4gtnc25 hK09G14lEJgsUSQcCYAz LBBlDWBueLubwa6m gD7tOb1+MXZhsKD9aBQ6 cY0pTuJwYbB3AMysI910 UqYexXUnAoyrf9wze5ik tOt4QzDuUTAgmqRo gDrwSFR1k6DwZk36S01b IHdpZHRoPSIyMCUiIHZh qSdbil3hbN2hJy3+PC9j d2joyo92jW78qFX+ WEFsUNZ7jVlxGMmcKVPl uB3xMKdcWkE3YEUdGySp gO44cKMpSMppSd0ybRuz hQezZY3uYUJhrsvt k786FvDlt7xqMLMicWBu SVldMQT2J99du9Y3XKKn LCSjGRB4bNN1xL2rvLnq bjogbGVmdDsgdmVy jLjwEKprVVnkF915SFTr xCfaJcWnxGObG0mkdzJU UT9kLycyrEB+PHRkIHN0 mRhrGXrsFTBscG7r BJJrG3g2DkSaPaV9KZqn V4OnfcY8IGIfpJFrOBPa xFIJwQ2daatxi9lzygei NbPcYMZgKMr0KNl2 PMCbcEsySyVyOLF4MpL4 ETV5vDPlyQ1yeFxioosu pX5zUmy+RklOOjwvdGQ+ DLTpQWQ6tMuvCBxg PKPubO2uSHSfT8j7DfDw UgQ6DSlcB0AausO8SVJs gKAwDLMwcXHHiK5bptii z1xzzwsvPnRrJWXa PQq4OWy9CRMlgUahRfNn JVX3GrC3PBT5uUDxgE8p vOukctnkyP4iWag+TVJO OjwvdGQ+PHRkIHN0 vKhxPEdaKYKsbA7qGHFu Q2m0NsCoQeM3XBgmF4Le ayL2UPPeqUAeXJTakYSS eP9dynebi4cgyezg IiMiKGPnBPm5BZg8UNEi sKwcSlLpEWB3RwM7BSP6 xDCfvT1kvMticvsfzM0z Oyc+PRQ2MZX0GF07 OT30M2ZqWozayNQitCK+ PHRhYmxlIHdpZHRoPScx SUGzVaXswViiVW3nPk0o ZGVyLWNvbGxhcHNl OiB (more content not included)... [facility] Provider [place] 08-29-2021 Provider Orders [id number] #1.00[facility] Rad - MRI Reporton Rad - MRI Report [id number] #1.00[facility] MRA Head w/o Contraston 08-10 MRA Head w/o Contrast MRA HEAD WITHOUT CONTRAST; 08/27/2021 2:19 PM EDT Clinical History:LOSS OF BALANCE Comparison: None available . Sequences: Axially acquired 3-D gradient echo series for the purposes of vbyt-tc-bwfdsw MRA. From this data set multiple volumetric [...] Deshpande MD 08/28/21 7:28 am Technologist: JERRI [facility] MRI Brain w/o Contraston MRI [...] Deshpande MD 08/27/21 2:50 pm Technologist: JERRI [facility] MRI Spine Cervical w/o Contr indu [...] MD 08/28/21 7:38 am Technologist: JERRI [facility] Physical Therapy Noteon 07-12 Physical Therapy Note [id number] #1.00[facility] Provider [place] 07-31-2021 Provider Orders [id number] #1.00[facility] Provider [place] 06-29-2021 Provider Orders [id number] #1.00[facility] Coding Summaryon 2021 Coding Summary HTMLBase 64 RpnyykgkHSu8lRq+PGhl YWQ+VP0VCFCzC61vrWIl sA5BR0bYTQ3OOVZJEXUO BL4FUG7icGP9GPxcB5Sk biAv FolndWIiMX66WFo4SEH5 uUunUDbnfX5lhKRoI7v2 JwAaDF18hL75WCcjFRBf CqF7YkYdzbmrfREr V7qfIzDadSThIfz+PHRh YmxlIHdpZHRoPScxMDAl OpQxhJrxHJ3gWt8jVTRv LWNvbGxhcHNlOiBj t4tsLIRsKAohUH0veMqb Y8LcsQU5WEEys1l0Sm67 dHI+OPMeANP2zVmaLIos z955KyFzq5yhPBW7 wLGiVGpkSLS8V05yw5Q0 TLLfTRYsHEH8fFW8zZ0c gIafjdvhQ1KctFTzWyG3 ZUF7tWRjsN1ngLgt efalaO7iFjg+I78PKH0K AEXWKN3TYgw1W0AfCokf dHI+UX96UOOoYE04wTVn bZYzz9zpkMo7GjDj LDXzFVC9cImkBBkfy3Iz KNUyR83qkCZkw0Y1OCVv jBjacZIyMjOwvJN4aI3v RHrwtlspf0wonkqa Knoug0qyzy99rF55I91c NXivYHJkZWL3CVKaWAKe sOfszd7cbL8qFk3+IDxj f8byd2skgIx7MiEx SGJdsfCwqRebZBV9f3Xe Nz85Z3JxeDbxd0XvZfu9 iy44bFJro1C0hPM3NVxg FIFbaN5lEMdgKdH3 DHQcGjSduZ42iRSnHBde Jp1rvJbhdOziNT4eBXJb moqlIEHkcG8pHRRdlSSs fUyeTH7zKJFoserh t147UmNvQSA1BUNalVGv B4OyoS2jIbKnHAEaSTLj L5UsgIFgFTcqP967DHbx RwK1WGNrcjIzU0En ZNTuwIkbBnQ3o7T2Mg5N e7ZyqofmGMN9FQyxHHO0 KrJ8ZlTfNlI8I8PwOrx2 WHMzyJwePO5iN9Fg NQOvqjmazufaxUH3PTJy RJVmnJ27lQXtYOtsTe1f i6A1l536SRByRCBdrT41 Ph3jaPntPRKjvKRL wL8bufbia1lbhvgjBjVj WWVuXQx8IIl8UERzgFtw PtFpHUE9MuF7VNX0cYOw aC6jhWcjdzkatV3j Oyc+L24ytQ1vDZP5KIC9 bupxJUPowdNzDZ24BM27 F3SkAnrkfJJukSK+PGRp zyPxjXpaFU6dYhQa s5giu3NfNKirE8UzYMYd NQhkCtm8ALRlZML0kDQ7 fR5tKPTlZEkdf9W5wKY3 U3UdlmJirj5ia1jc ZEIcAVevW93haSTul5D0 XHHnoMO2RWFvsWotNmRi bW47Xgb+SWTxyJlbz6Lf Rkcey6ofd2kwzOc3 IjMwJSIgdmFsaWduPSJ0 z9WzUr32C82fAWfrVMBq QILwAWHtTIIdkFqmyt2w bX7wBn8+PGNvbCB3 kDS6sH4aLJPbVlX2EWyb X774WgGsaNMhEbjhr0dq l3sqiIh7QbDrNDBewfSm hZccIED0v5StXb36 N60kPYhkQJTvOEHjJSSl PPLtzUawtm4fxB1kNn9+ DY4mr6xpom39xF86zOH+ FLMwUMV6jRunOVsc IGStwD2xXWfkZrM0IBVa VfUocY93vTRpTTevIy7q eCgovGwkNY7cUPOtogar e318FbLtz0kgRZCd gSSzQWfgWIR6B55lu5Z7 BJQhZUOdFZM8kNY5yA9o bGlnbjogbGVmdDsgdmVy cLulNWneNMgrG125 IHRvcDsnPlBhdGllbnQg QuRrDFh2S1IkTyw9GSZh xDjgJG0rjLRnETycVr9y jYkfxLhkTJ4sXKQe qekim371OoTfo7ptYTHi gZHhVEsbZEJ3W40sh1Y0 ZEAfWTYrMND0aAD0mB3u bGlnbjogbGVmdDsg ioIokVkhTJsmULuqL665 IHRvcDsnPkJpcnRoIERh yNR4FS62MP24nNRpn3N1 kUO2E7MmTXKflvfg ztfajIW5TYBfETGndF38 Cq6xfLmuIn7tDYGtWIH2 USJpnKGgK6RoeJ7sCtUe MIZqYLHoM0CrnLIg YZrhY615BDpwXeK1VIOp jgGuR5KaASXngVaeQqR8 a7C0Ho4GH0U1IX46WL16 tSDhy6D3fYD3K5Qo LENzgrdyvhuepJJ8CMWf HYWvbV05Nx3qyFvsGo8o BDTwIHO5FQFbmTGdZ3Qk wJ5gBrYdKAMaYQZp Z9JwiENdHWikB957TUuf LcY9XXDyevWoB1XjRBLf lRgiExQ7y6W7Fh8SKPn6 UQ15VP81kMIpt4U5 eNL9W6CuEFUwylfpgifu yHR2IFGlVMJcjL88Xh4n kWmjTw9oQIUiWYH0LKJd cBDbQ4UduP3kQaHl HAYeTMUzR4SwxCNvZSfc Y774YSdmNpJ7DOFzktVa R8ZbXDYgtNvhEwN9m9H2 Lt5XYWVlBQ75OJM4 pRM9LJ70WJ83K2YhHlfa dGFibGU+PHRhYmxlIHdp ZHRoPScxMDAlJyBzdHls TT8yJx7nTQRzMWHi eEwvfQRbQvXuk7qdBJDy MIrmDA5hfMynZ1NsuJY1 SCQbg0d7Ci92J17dR0Gb dXA+CLFhxJT6cCN3 lF0iMpFdLwQ6OFooG199 LpSxoZCxIdvtx3vpt1la vNq7ErY4DUHuziAhhSsr DDX0i3CiWq06T25q IHdpZHRoPSIxNSUiIHZh fAxlqa1ioA7aIi3+PGNv oNZ3iLS9tE7dRkIiGhS0 VUktX748TmIwkTGg Ipngy7ljs3rrpLt8ZpRh VOMbuqXeoHyjDZX3k0Wk Nc61F5TgnUxpk6NpZln7 bw59iHJny9Q6kRL4 G0EaBFAbyroulZEylRef HM4rOAYtjgbfKWWmkV9p LOYjN7c3XyZpKqK7SJfb W2EcbuV1KPYssFLc YTjgFIY7L51ya9K3KWWo DGEvYYB1xAR6jE7wgHzn bjogbGVmdDsgdmVydGlj JZzcCCfwT398CKUg tSlnXDZbcB8jJTSlpFNj bHpeCW3nJLGqvbauTuGR M2CKG94OCOZLV8IUEiHv WOmIMO71Z5EmAsx8 FRDqbQbkCS1uwUBrPLyd Od2obVpigUegNL5sAEFr bvdzXEAhoH4tTXMveKAc vQmnJM0fTMYdyglg i703BiXsIBC0RALgrCTj F1NpyQ3dJnZiNZViRFRk N1ObpFEbEChmA412QIgp SvQ4NCHdhsNlY2Xc WCJcyXuqHjH0h2H1Tm2a YQ5bFu3cLHQ5UQ89BX16 cLOml1X9pDB0Q1XhETNp mvocffkqbSL2DOWc NWNafR21nGEuQWidVt0b z5M0b930MGGxVKNodU20 Sg2ctJgcMERbqOFWqP5g bghkx9nyubpuZoZr JLMkOOc5ACk3CTFumWdu XcGqLOU3VaB1NQB9mYHb kJ3ujQwzolxwqR2qMoo+ CURpDLYmbrX6G0Bo Yct8HNRlvYrnTJ0zoPMr GZqqCx5xyYfpuGhfVL2a AEVxbquvUVRylV9kCZOr fGMziZozXE1zOBLf qujxj500OpNiLGE8ASGu cIXyT1XstG8uGaWxBSMm FVSfJ1TtySOtGKbkU106 NVsnLyQ4IRQhqyQf X7MwKFCylYzxVyF5x4B8 Wr0NCGhIDI65LJ63tMBz n9Y4wGJ7J2HcEFHhjvpb kewxhHD4ECDsVESd fB38iVVfKQfuEe2vs7L2 i189JOGkDCQzwN93Xx6g cUihNDKpjDLHwC5cesis u4rlznegYkZaATPg SDd7ILj8IPCzgUfxDzTo OVE7CmF9LTG3jMPomD3g wYnxwounmJ9eFjv+T1A8 R4MsDkmasWF+PC90 LEYdNP72nOXayDGab1uz pGr1HaDtTSWbJBC8cYmj IVimb2EcQAFkY49lnSTr y9G6XGQebJhgzIGe QsFejQX7uI1vVJyresua p5amvkpkMsxgx3vcgt67 fA22E57sXKxiIDBlUYXn XBWfPMGknYbagd0n gW1sAr7+TZJhmVX3zIF2 eS5cEkDeLtX7UKepB570 VuGoxUGiSddrz9tsh4wx zFj8ZfWoQBZamnUk hKbcVOW9j8RkGl77E45s IHdpZHRoPSIyMCUiIHZh fMamnj3reP4mJh5+PC9j i4tcne05uA21pBB+ DFExQEX5hJirLNtnMQBb wN7bXCulKfW7AOPbFsPu fF63bKQbFKfhXe4deMuz nJouRM2xJCGznqll j835ZsVgq4ahOJTgiNEo RPuwZNW0D08ez5O5OHPa BCEuBXJ6wAB4xJ6roPxo bjogbGVmdDsgdmVy cQevNMyvMOkkG044NLIx dJthJsRcmBMkL3xcziQP UB5fWgfdoCX+PHRkIHN0 fJckXAmcBDSflD9a VJGrL1p4QmHjCcI0HEaw G1KodfL9CLHbaIYoYSTw mXBLzG9toujqh9sqwdxp OrQsYBHrJGw9SNb8 JKOyvFmlJsXdBQA2SbJ7 EHY5qFOufA4riBqqwjcc xQ4kRxf+RklOOjwvdGQ+ JTBwEQZ2xKgoTTxr HWYkpP9yBFItY9s1McOg IuP7LHodA0KknxL0MQZb oRLlSMXriLINaG2uxtfu z6fxwwcyBkGyDFPj FKu7GIm0FOXtpJzqJyQj NKX4BjR3GTR7wDCsjI3b tYympewjjQ5yRfn+TVJO OjwvdGQ+PHRkIHN0 gKnyDZvyJXMydC3sZZGq K1l8DsVfFfY7NFttF8Nn dlW9RKPivOFlMGNdtSLX bS2sbhwmp6dwifsa DwGdNGFeZQl0DCv5WRUw pSleYbKrNXS0BsC7UAT8 oVUdtS2pyInyvyyibF0u Oyc+PGY7LJE9BQ46 RS33S4XzPphnsOUntLI+ PHRhYmxlIHdpZHRoPScx DDQdDnFqwDqhXV3sEm2c ZGVyLWNvbGxhcHNl OiB (more content not included)... Normal [facility] Provider Orderson 06-25-2021 Provider Orders [id number] #1.00OTGTIFF Normal [facility] .Auto Diff 106-22-2021 Auto [place] % 10 % Normal 12 [facility] Comment on above: Performed By: #### 1 [id number], [id number], [id number] ####[facility] (DEFAULT)[address] [place] [address] 40535 Baso Abs# 0.2 x10 Normal 0.0-0.2 [facility] Comment on above: Performed By: #### 1 [id number], [id number], [id number] ####[facility] (DEFAULT)[address] [place] [address] 25373 Basophils/100 WBC (Bld) 1.9 % Normal 0.2-2.0 [facility] Comment on above: Performed By: #### 1 [id number], [id number], [id number] ####[facility] (DEFAULT)[address] [place] [address] 25418 Eos Abs# 0.4 x10 Normal 0.0-0.4 [facility] Comment on above: Performed By: #### 1 [id number], [id number], [id number] ####[facility] (DEFAULT)[address] [place] [address] 46648 Eosinophils/100 WBC (Bld) 4.7 % High 0.9-4.0 [facility] Comment on above: Performed By: #### 1 [id number], [id number], [id number] ####[facility] (DEFAULT)[address] [place] [address] Lymph Abs# 2.9 x10 Normal 1.3-2.9 [facility] Comment on above: Performed By: #### 1 [id number], [id number], [id number] ####[facility] (DEFAULT)[address] [place] [address] Lymphocytes/100 WBC (Bld) 33 % Normal 14-48 [facility] Comment on above: Performed By: #### 1 [id number], [id number], [id number] ####[facility] (DEFAULT)[address] [place] [address] [place] Abs# 0.9 x10 High 0.0-0.8 [facility] Comment on above: Performed By: #### 1 [id number], [id number], [id number] ####[facility] (DEFAULT)[address] [place] [address] Neut Abs# 4.6 x10 Normal 1.5-9.2 [facility] Comment on above: Performed By: #### 1 [id number], [id number], [id number] ####[facility] (DEFAULT)[address] [place] [address] Neutrophils/100 WBC (Bld) 50 % Normal 44-88 [facility] Comment on above: Performed By: #### 1 [id number], [id number], [id number] ####[facility] (DEFAULT)[address] [place] [address] CBC w/ Auto Diffon 1 Erythrocyte distribution width (RBC) [Ratio] 13.2 % Normal 11.5-15.0 [facility] Comment on above: Performed By: #### 1 [id number], [id number], [id number] ####[facility] (DEFAULT)[address] [place] [address] Hematocrit (Bld) [Volume fraction] 45.3 % Normal 34.8-51.9 [facility] Comment on above: Performed By: #### 1 [id number], [id number], [id number] ####[facility] (DEFAULT)[address] [place] [address] 61409 Hemoglobin (Bld) [Mass/Vol] 14.9 g/dL Normal 11.8-17.7 [facility] Comment on above: Performed By: #### 1 [id number], [id number], [id number] ####[facility] (DEFAULT)[address] [place] [address] 15101 Instr WBC 9.0 x10 Invalid Interpretation Code [facility] Comment on above: Performed By: #### 1 [id number], [id number], [id number] ####[facility] (DEFAULT)[address] [place] [address] 68076 Man Diff? Auto Normal [facility] Comment on above: Performed By: #### 1 [id number], [id number], [id number] ####[facility] (DEFAULT)[address] [place] [address] 59908 MCH (RBC) [Entitic mass] 31 pg Normal 24-34 [facility] Comment on above: Performed By: #### 1 [id number], [id number], [id number] ####[facility] (DEFAULT)[address] [place] [address] 89121 MCHC (RBC) [Mass/Vol] 33 g/dL Normal 26-37 [facility] Comment on above: Performed By: #### 1 [id number], 7766029, [id number] ####[facility] (DEFAULT)[address] [place] [address] 48945 MCV (RBC) [Entitic vol] 95 fL Normal 81-100 [facility] Comment on above: Performed By: #### 1 [id number], [id number], [id number] ####[facility] (DEFAULT)[address] [place] [address] 11801 Platelet 295 x10 Normal 138-427 [facility] Comment on above: Performed By: #### 1 [id number], [id number], [id number] ####[facility] (DEFAULT)[address] [place] [address] 11982 Platelet mean volume (Bld) [Entitic vol] 9.1 fL Normal 6.3-10.2 [facility] Comment on above: Performed By: #### 1 [id number], [id number], [id number] ####[facility] (DEFAULT)[address] [place] [address] RBC 4.78 x10 Normal 3.70-5.30 [facility] Comment on above: Performed By: #### 1 [id number], 7758459, [id number] ####[facility] (DEFAULT)[address] [place] [address] 45275 WBC 9.0 x10 Normal 3.5-10.5 [facility] Comment on above: Performed By: #### 1 [id number], 3146894, [id number] ####[facility] (DEFAULT)[address] [place] [address] 48412 TSH w/ Reflex to FT4on 06-22 TSH Qn 2.41 m[IU]/L Normal 0.45-5.33 [facility] Comment on above: Result Comment: Gene ral Population (males and non- females, aged 21-88) 0.45 - 5.33 Females, 1st Trimester 0.05 - 3.70 Females, 2nd Trimester 0.31 - 4.35 Females, 3rd Trimester 0.41 - 5.18 Performed By: #### 1 [id number], [id number], [id number] ####[facility] (DEFAULT)[address] [place] [address] 22244 US Carotid Duplex Bilateralo n 06-22-2021 US Carotid Duplex Bilateral DUPLEX ULTRASOUND EXAMINATION OF THE CAROTID ARTERIES. COMPARISON: None. HISTORY / INDICATIONS: Evaluate for carotid stenosis TECHNIQUE: Bilateral common carotid arteries, extracranial internal and external carotid arteries are evaluated with hogan-scale imaging, color Doppler, and spectral analysis according to a standard protocol. ICA-CCA ratios are calculated with fulfillment representative peak-systolic velocities and recorded. Vertebral arteries [...] Jules Tilley 06/22/21 2:18 pm Technologist: DI[facility] XR Chest 2 Viewson XR Chest [...] MD 06/22/21 3:55 pm Technologist: SE KATH[facility] Coding Summaryon 05-23-2021 Coding Summary HTMLBase 64 QzstywtsPVd2tKu+PGhl YWQ+NU6DPKAgT94gpCJx bL4YL6pWOR5BIBHCOEQR FX0SVL8ujNM3TLljW0Yt biAv DfnbfKHfKL67JRp6VHO0 sFonUUjcxU7oyZVnQ8f1 NrJoUA37dC99GIayNQYg JzO7IfUidusizIGb W1syQkZxqKUxWem+PHRh YmxlIHdpZHRoPScxMDAl DsRilJdnOM1dBf0lENOj LWNvbGxhcHNlOiBj k5bhDBZnXFtmAK1zaJoe M2TqxMS6FLMjc0s1Jg44 dHI+KFOfKGQ1wRyoBMyy t205HuKcx7ekDAM2 cMZxIOtmPWY0I72ha6N6 DPKbKAQtJDG1jSM9aC0u zWmyimhpK1WtlXSyXvO7 UYT5uEKxlS6goCan tnrfkS3iUlz+S08BDZ3O AGCUEO2ZVii4Q8HrZgdh dHI+GB22WBVoKM99kADe xAUgd5lccMl5DaDm SGEyHND0rLfrNMkei0Pl AWKjN08gpCJsp5V8JZGv wPwqhTUpAxBmrXS1vU4k TEelhfkfg6bnbkgh Cwchx2mvjp52mN16I18m NPffYSXqKHH9DHZmGQUh bJmote0xhR3zDk2+IDxj x0toc5ebjZv8AdOl SULdyhErwYwgPMR0x8Es Xp89V4PkxYvbs8WoBgy7 jd56sKQty9R2eHO8UNtb ZVImsJ1jDNgaKbZ6 XHHiBdMniN57aOYvHMfx Yy7skIcmfGekVK0uVVCx zbcvZYQevF7iWDBszGWm wJdgRZ5qOOAqfmtp m451OrVyIFL5JAKjhABc O0ZtqD2nAlPaDUMmUUXa K4AbeCQgRJkuF750ZOrh FgG1NLAdttKuQ2Iq AQWfqDbzCuT8s9G8Dr9T q9WvudjrWUZ2XEstFLD8 MiZ0FiIyLhZ9H5MnQwx7 LHTetMziUM5nE3Et PFVawesvroqsmIK7GCQf HRDivF10wQCwARtzMn8t j7M5f135DTJmGRGhzW96 Qa1vfQdhFEXamLBA oG3xkemww5fhgywdCqRi DHNvGWy5VGj6EOEmmJnr SuGfIHC4KbC1PEW3pAKj jJ5mkZexyjtyxS0u Oyc+M07etO5nCQB3ACF2 vvrlHHQlgwHrNF95KE42 Y6LpEzxhrMSixFS+PGRp qzJglYcsNF9kUfHn h0pzi2EwPYheM3UeXKXy QNkeYvm6IMRoYWK7hIY1 xP4zISRaSPedo6Q4zTL4 T1AtxqOoig5fc6om AYDzXCcpA48rcPDnm8E9 NSAgeXE5GIAheNbhThJo iZ35Xys+FYNjiExeo6Bs Hlmkz6ugh4hxgIc6 IjMwJSIgdmFsaWduPSJ0 m0VnWk24D00aXOygUUUh MWGfYNMwLSTlqUcnyb9e bW3fSm4+PGNvbCB3 dKG8tR9pBYOmCcI2BDtv R275CpCufPFbLxijf1wq m6gjiWr4WqKiKZUtbfTp jXsgUHT0r4BaMz05 R30bMBobJHZgWBBjDBUv OKFvjDjnxi0xmA2tGo6+ ED6ee0pkvx05fM34nZH+ TVHqZDS8iFcoFYir EABwtE0dXAurMcS4RULv BkThiA36hFJdTNljHo2g rKrruJknMG0kRYNlhzko v988MxTya7loCCKj kCMmRTwyZVV9T22pb6W1 FRBuXLIkVLJ5rTX4gD1t bGlnbjogbGVmdDsgdmVy zQloBWwySHunO794 IHRvcDsnPlBhdGllbnQg GrKzAKs5G0AdUxw8NHHh yNlqMI0zeNXiFWrpVb9i wZizjOyoHD5dAEYh cfxgg836JjCew3vjPBCq rUSuYHlcOON0X78jh6Z6 NKIpYOHdGMK4oJI0iP9o bGlnbjogbGVmdDsg feAqwAtpGGxxHRyfX102 IHRvcDsnPkJpcnRoIERh sRM3KJ10JR36iAUjn3O2 nKS9V7VnQLEvianz dwarcVD9WZXjBETojR92 Eq8pkQdxLg4nHEDdNJU7 HNFzxOBfT9PbzF1hSvXr NCUgTKKmJ3RmhWTf NMmcU556LCbfRlJ0AWHk njVeC7QvZUYscFaoZnR9 x4Q2Xc9KB9U4BY12ZI39 qNWch4S2oXO1I9Ev PODgeetrbjlhkFA5JKWv NLLhxM04Cp4axZooGa4u ZDOiXET5XIFqbQAyL9Qe oZ2lIfAwEUAxUIJj I0GcePTkOMsyN644MEsb VbC5TSPiziUgG4RtIUIh iOrhJaX6r8U2Ql0OQRm6 UE52VK84xLTho8R5 wVC6D8QtKXZbcrrcttmo tXP1LKCzFLMtcO65Qa6b xLpvKr0eIUQwCSJ3LKIg jLGfR3VemP5bPfTz XYNaLEOxD1DipPLgOUon U324TCrkMfB6QSGpefZy F7WpYVXqzUwdBbP6v3T1 Tu6HDXYvXL12VEU5 sPF9UY85JQ15E2YlKosp dGFibGU+PHRhYmxlIHdp ZHRoPScxMDAlJyBzdHls MK4aUw3mILBaKKSd tCmraJWmQqSbk5yeHDGj TCcfLT2vwUmsR9RddGF9 QUIlg6k1Vr27V39wA7Wb dXA+GBRnbRF7eZC7 cE0iKhBhHtU5DDgiJ552 OcNpyRZnQrsvb8att3fp tLg2UtM5KAMburTyhPfh JKP0w2HcGv76G64m IHdpZHRoPSIxNSUiIHZh gPzzqh7tqG1uQq4+PGNv mCJ1vID2rD7oSiDoSiJ3 GXvpK626YeCkyOAj Vdfgm2xiv0pjvOl5UdDt YFPzfyPyuSdgJKR2a1Lf Kv98R9OsuLxsw6MzOdo4 gb69eWRwp7Z6vLP2 G0WtLPOptjlmfYJdsXar XM5rMBFaywhwVHDxrK0s DJDoY6e3OcFtOtL7CQjd E2IxmvR4SCMwzQMx LTvjPKS7K60dh0X1GKZq ORApAXI8aCA6oZ5skGtv bjogbGVmdDsgdmVydGlj ROlaZJvnY339GJMs pBhxHWNqtV0uWURgcPZn bHugJT5fFCUfujqlNjPP Z7WXQ32CGCOOC7VMDbNd FAoGFK44L5BwAuf4 GFKbpFifDZ7ryCGzGBju Hf1lfDnfnQjzEN8qQVWp qesrKEExuT5wTUWqtXAu iWsoJT2nNJKkytaa q221RlDbMQJ3YLTwrEGa U2QusX1iSrJoIZXzOZLh F7ZbrDErCNduF402BXrz EyR2PCHhiaWvQ3Jd XNWixQxbDjW6m5G1Pn8j UR2uDl4lMZG5IL39LZ29 oYVqq1Z2qPX2R7RrGEFx gidxujrjkEE5DLPa XRStuM45lTEsEDktCj1a g7O8z192WEZwXJBilT92 Vz5bkGtxOHHstHWSpP4q ontsg8adqqvzJoIa AMZyAGn6REg1QHEquVzg NmCzCAN9BtX8QYY7fBRc jV2nySzbrvhniR1fPjs+ WLUiMWQvyqW7H0Uu Rly1XYAntLfcKH0acARg DTdcIs9vbFsjePvzDK4u NRAqokopYOPtkJ3dFXKp yEUrrOpsCV3cGILv yazaj587VuCzBON1IFGv sJLdM1YhxY5nAlMgEZAm HYQjI8KekQSyUWkuP109 FFopExJ7FBBnjiZr B5AyYLTqrLkfXmF4k4R1 Db2AKUcJJF89IZ13iUWc s3J0pYU7W4LcLHWrzyet zfsaxFV9AQVcEWHe hR39jBTdQRiiQm9ee6Q8 q230HOFnMVYxzH59Le7s nLgjSEXvaUZCeH3fdsuf o6gfhvbaNeGsZJMo ZIz8DBe1NWQtnPdfIiHn PIG3ToA1YOH8xAPtbY7d tCrwugjbbN4xOgc+UmVj bQOovA2pTC10uQAo tVimulG2Z0SmWsnijSN+ FY90PEKnLW35nLSwqQLh o9ywcIc8CvRbMMFpVAC1 yGdcYQwmc1PlHOEy W71qyQNmz0S3RMNimQus vZEfRhMdfST4sI6dNGkl lexvg4kalfyjYtzmk4su cc57aN84R81rNJac ZHRoPSIzMCUiIHZhbGln sk9bcH5wTp7+PGNvbCB3 qLN4pM3lIsYaWvR9SXib S400WyTqjFGbCxvr y3kqr2oquIj3DaXdKZDj xgMvgWgiHKD6x8CaYz62 M21pMElqRUPvOCEaTTTy EKDzaUwehl0lbC1n Ii8+DY0el5akbz79pN82 dHI+TBAlSLS8kUinNGwa PLIuwN6zBWzmUrY6MZRy RpCflV96vDOjGEjj Ci2exNtbcXktEX4jIYAn aeoyb188YtRsg9jbUAIx cFOeYExkVCT2L52cw7L5 JQCsNQXnTFE1vYL0 gN5fpFipxxosuYUwtBdu fjOauXbgHAlcSHwiO099 SQPttIskHaClaEDcQ6gg uoPTMS4hFulinUR+ IIRkDGP9iGkaBYxvEDWb yL0yBGCfG0j6MnHgMkH7 EFzlX8KkakO6SGAlfGTw TXIpgCHMmU2xrsfd i7ehgjjpBbUpYHCjKRt6 WKi2LUAxdNyuKjBkINV1 DkG9RGA7kVSdeO7zcJcr zlcanB8gCvu+RklO OjwvdGQ+TEKgQCW8wPlc ULgvVKCzlT5wOOHzL2u1 ZtDjNeC3KPgsL1VfurM9 IGJvbGQgMTBwdCBU aL8hyoyae6yfikedAkMj WSUaGWu6KQr2FCKhtMyd YiFvFXU1LdV5ATT0zVLf dP2phIeedixdyY2w Oyc+TVJOOjwvdGQ+PHRk BKR8sPizCMwlVTViwQ7l YWUjZ9o5CsPsJjG1RQkz T4KfzfS9LINzsXIz YCZweRWOfS9gycmty7mn yevvKuPqPFHhLOa2YWv5 XLUywWtjUeIjRWM7GbX9 NDQ3hSYjiT2qtLpr wqnnpF2mHhb+OWW2EZV6 QN59QL81I0MzYyypuEVr bGU+PHRhYmxlIHdpZHRo PScxMDAlJyBzdHls ZT0 (more content not included)... [facility] Provider Orderson 05-17-2021 Provider Orders [id number] #1.00OTGTIFF [facility] Coding Summaryon 04-27-2021 Coding Summary HTMLBase 64 ImytsaruVFm3mWi+PGhl YWQ+BL3CUCFkZ09vbMAu yY6ID5wBYK8XYPNXRGCF II3BSH5ydLK5MMyiJ9Xu biAv PcdsgLNjXN22MSu3JBB6 xZxuIEmdhV0oaVBoH9h8 QuYyQS27kS04FCwaKDQj ZbZ1JkCrhvrswJYd R7viQtNgfSJuNfi+PHRh YmxlIHdpZHRoPScxMDAl BnVwqYyeJM4zBl2dXONl LWNvbGxhcHNlOiBj f3krVLLuCIktDX2ybUgb M8PbiNI6JMIjl9i0Ff39 dHI+YUCqGIO4dNavXUsz c586QoAzw8jqWBQ4 cRFeKYkgKWM9M21zf4Y6 BTUnPXRfSWO2cGK6mA1b tNaiscmrM8VdvKIrHhR1 WIC1oIKhuW1rcIdx siurpA9wEzl+T68CZR8T ECUCCK2YKll2H8ReUecc dHI+RK12RKRyRO89xDJj nTDxi8kccEe8DqAc WQEtDUL7lWvaJEbyr1Sq RNYoH22mvROqn5K6DXAl nYxmeXMmVzWvdWZ6fX3d OIlrkkqxo0luqbqx Crkqn0vxom68yF70D24k PJwiPUGwNTN2RIYaAJDl wAqlwg7kgY9zEh6+IDxj e9ely7ycbQr8WwBm HNXyiaFsmEyhBXR1g4Jj Bj93Y8XlmSxbv3KyImg7 hf51fJRik2Y7qSN4KHpf GTQmrP2mATjpQxI7 FOCuAdAtoI67vELbZOat Qv1jxWqbfIznAR2eHECw yqseAHSpnC9hGWTztQJf yKwcZQ1gAGPsjuty d150ScDcYTX9PEWmhCAh P8AcvR1eLkFcMWEtJBIo Y1GwdFClBIvwV077RWep LwI6TLVwyzNuJ2Br IJSkuLlgQxX6p7E2Zm6M g7TvgoyyFPB7TExjTSY0 AqH7SwQwVbA6S7SfUvh3 VGGqgAvrEB0eH9Bw YTDhcfgobsczyMK9XXIw HJFxeO50cNSrQBhcTl1x g7W4p512SYSfUPXxoX38 Or4vfZggEZYetBKF pG1srkhva6lpoiifGsFt KGKuAQj1TWj6FUItoErb MmHzORL3OfS7HRF7aFGh pA6wpZayppjpuQ7y Oyc+O52odM5lUHF9EKO9 eompARBjqkDfXU32OX45 B8IeMpqkaKJbzPZ+PGRp cdFpiFfgBT9hTsOm c5aut7GgTEjeA8RjUJMy UFhwQsp6IBCbLJF5qUL7 lG9nOQKxICvie2W3aVO2 F8VnviWtge3lw0st OBUvXXooD80dbXEcj0F6 LYKekYR1ONLgoBgwAiLh vI24Now+WKLiuOyri1Bo Sgdnh7frq4qnaFx3 IjMwJSIgdmFsaWduPSJ0 b4OmDd10X84yYXbzJAPz QGVwZCAxJLUimLvzhv9a uW3yFj7+PGNvbCB3 dZU6tB3sPSGlLbQ1NYoz P982JkKqcKWyNaxfi0aq m5ignWa6MzNyAINgfgYe bRcyQBI7a8SvIw44 Z58uLDhdOHHuSTVzACYq AUWraAsbwq9pvJ0vDn8+ VV7oi9xfwn27vZ08qFU+ UYDyZON2vAwaXKiw NIDteK1lIOjuTiK3ZUYx NpRneQ23vMFeKHzxMi8b oUrizPgvUR0cNBLzwksi r804AzYzx7mjOZQz xUXqOPeuNXF0R31jd7Y7 EMGuZOPyFLJ5kCD2wB7g bGlnbjogbGVmdDsgdmVy xMowAAyaIXobD596 IHRvcDsnPlBhdGllbnQg HwMiAFl3J3ZaUnz1QSWt mKdsSE8myNZhTSjoMa9c mJwixSltAZ1kZRJy xfmeg625HjKqj3bvDLJr fYOiNQevHFC8I60sk3Z7 OJPqHKHfTIL4wCD0yB8p bGlnbjogbGVmdDsg gnDcjSieVAybJGvfG979 IHRvcDsnPkJpcnRoIERh oNW8AX69TG88kHMmi9T1 oDK2J6YmGXPvytyh wufjmMA3KVZlZGYfdS84 Ta4mtTsgHj0zUWVlQHD0 LOXqxSWdR0UlfE5nDyMn JHEnCISnB9YnsTAk YBveS043TJhvGvZ3RJXe doKbO8AwCVEveKqyRxF2 v2E3Ve0JG9A6RS28IN10 rMNoh8P6hUB9D2Xw SZAzrsewbaiatXI2ISAd IMQwxU95Of7lcKtkWt6w IKSeITB2FSRgxZXfE1Zg dD3yFhCtXSVbGLVe F2JujWEgMCkhE280PGcp OnT8PTXnyrBiU7RsRZFr lGxxYyX1w3X1Fg9CKDu8 QM16GH27nURoz0N0 zGB7T7CeTAJvytqpipzc iFZ8NMHvKWOzaY50Br5v bNhxUq2oUNZgUOG3JZRk uWNnB0SgoX3kMtWd GFPgQRLdM0OcwFNcNTpb X816JDoxZkR6NBKltiTb U8ZnRHRfbRjaPuF8s0Q0 Gy4IICYvJW88FRV8 qFA5XU94EM15T5WcFcad dGFibGU+PHRhYmxlIHdp ZHRoPScxMDAlJyBzdHls FY5zFe1mVZIeQGFg tArzgVGrWiJvh6qmFQSq TCcbBH3inEruH3NndQO0 DXDlc4h4Dj54P13sJ1Al dXA+HDBulLC4pFB5 vI7mUkLwSdQ8JDyyE418 UqOcsDMoKrwcj1cxm9yh tIz7HkO4UTEzayRluGrz ZKN7o8UvXm71V35i IHdpZHRoPSIxNSUiIHZh lUkoth9sqI2aZg0+PGNv pZD6mCW1aG3iBoYhOgB4 HSclD951CzSisJEc Tgnlq3hpn2wpjAw6QzGh QEBcmfDpmByaYGT7y9Zo Nf91V3MfbOagv5EpJbf0 xi91xPBzf2X1lFW0 E6QxQBIbnasafHQleLvb MZ1eGCFgwhmrNDGjlD9s OPJjQ5l6GsBqIeX6SVkv P8JmwwA7QHQmpLFq RQtnFBE4C75ar2Z2LQKe VPUvOQY5zYU5eY1zmFin bjogbGVmdDsgdmVydGlj HYplWEmbW463CXBk jXkmECIfgC6dFUNkmDZv fRqeCL2aJCXiuwsxZsJQ T6MOY52ZZWRFY7DHVyAc AJxUFB05S0ZsRae6 DIUgeGlwWP9svYPcROiz Vy5ehWablGneFJ6gMNOe ufknUCJjtD3iPFWuaDTr mAapAM0hDRJtyjqj s547AlBjEPV4VZUjkBEj R5OokP5gTzHuWBHlKVEd M2PzmCMaSEkxO920YGqp MuP6SEKllnArW0Fn JIBmiEouGwI7y9N5Gb0s GJ2xEk7rCIJ1WI29ES82 aXIkp2O0pUZ5X2SxJUSq ocjlrldzcRM3CXPk TYAvuR51eALeOVksZm4z w9E6x111VVYhFGUbvX68 Wc1ahDaqSOZffAAPvX8n pvmup6ypwpgoRrPw WZCeGNa2VBj5MEKijLzc WzOyPCM7RhW2TGY3kPJs lN6ggRahjwddfZ9vTfa+ WBFfMHTqlkI6U9Ow Eme1GOVqaFvpLX8zxLMi LZiaHb2ibBpiuUsyLF9z HLEmxrygWXCyjG1mYPQw cEBfwAbdZF5bLPVb qdxbw702DyVzFJK1VTSk hZOmZ2IxxK3hAdJbOTRk RAYuY6YviHYpSAswE882 FIdmZhD3EIQnyiSv O6SkLJQbpEypIaN6g4U6 Or8KCApUTM89ZA59gWVl h6D0lTZ1S3MuEFOlqmwy dffxxDY1VGHtFVKx dC18hQDvSEazZm2ns3K3 z418TFRwHOXavK08Cc0r cIexALTaqLMEgO2igogs l0pomdnkXzKuNVHd OOe2AEp6HEPpaRlrHkKl XSB7IaS7ZUN4cRIcqW2v iPycwaasmJ5yCsu+T1A8 J1ZmMkbahGW+PC90 REZyGR22pTJhmKDao7gd lCe3CqOwARSnPCL3iUdx WEyjv0UdHPVyX20xcDJt s9M9GHHetKteyEGz JkCisTD2dZ1iWVcojuld o6jiniggObwjb6ibls85 nG84P38rCUqeZMFoRHId NNLoYPYbwTenjv9h mB0rJp6+TMByvWK0xOP8 gL4cQyNjGdQ6ZQweL159 RjAcwJKeNtcpb1lcs6so uQx3QeLsBFKrupKz zIkvXKQ1m1AxXc22N85j IHdpZHRoPSIyMCUiIHZh sMhtpw9ysL8lLr3+PC9j z0zbax07eE08hGO+ VIKkOHU7gJdrRBsfHNAs vG7zLNcaKgE2WAMuWjCc mQ17cPDrMHuiXf7wcCtz lBxjYD5nQZTuzmcv t244GmQjv6azMSPmgXAe NOvkWEG6Y80hf0A8VXUt NCZqFAT1vOI5zZ3toGfw bjogbGVmdDsgdmVy rDivAKdcNXglF160ODYy vVmoAnTopNHmA4wzvcVV BD9cMoinbPK+PHRkIHN0 eTipPDmtDWRkeK4t TVEiH5g3SjWgEdF2NAyr U8SpotB6MYUiuGWxFEJt cJRCuQ1dlbpmg0zqysny NbQxEFKrKLd5KIa1 TVKooZavJuXhTCN2YxE9 ZKE2rGEjnN8faRrtofyx hS4cXmv+RklOOjwvdGQ+ LPGyMQL3oVwbVYtk XVTxxM5fHQZcO5m3JpZv CyQ7LFzhZ2NczeP4FDVq bDGmGPMgeINDhJ1vjfvt b5gaishzLnRoNANn TYx9LKh4KCUnwRvoHpFu AQE6WpR8LBI9sDDwiK1y bIklodwijT5cVme+TVJO OjwvdGQ+PHRkIHN0 iLnzEDyyWUGhgF0nYUXu K2i0OvWgMbQ8WRftT3Mx ugR4LOXgaGZyQUKblNRO sO3ecrqya2czcuif TiOcSGPbBSw3LCa2JXRo iRcoFiWqVMG4VdG6HVG9 aRUkeU0qjCxyihpyzO2c Oyc+MJU6RVU1OX03 IK25L5YfMqofuAIpbDT+ PHRhYmxlIHdpZHRoPScx DKKgDsJvoIljNA3tDa5j ZGVyLWNvbGxhcHNl OiB (more content not included)... [facility] Coding Summaryon 04-06-2021 Coding Summary HTMLBase 64 TjuoqzkrCOf9tHi+PGhl YWQ+AU8WWZFxM98toVGb eU0SY2hWRS9JMSTRXLQL HE0BXI4qmTR8APgfY0Bw biAv OphzlMRiVN99NKt7ALF0 dNkzKTgopR7thZPyF7p6 XtIyXT70qU11GWlhPCSn TkL7NgYmldardVMi C5axEmBokRDjMic+PHRh YmxlIHdpZHRoPScxMDAl MrTofHajMV2kSl1nBJBb LWNvbGxhcHNlOiBj q5hdDMFqNQxvMA2nhFew B0KhqHK4OEZwb3q3Ef16 dHI+GMPeKDF2aGpkSKge z899TbIdq5zlAZN5 dFOnBGczRYF3W36dx0Q5 VXSpRGAiDIY5rMF8iC3p nBilrwzsT6RzfLVyXoU1 FCA7wYUtuP2lcCdd goslmZ9xMuo+Q42DAH5C YDXYVA5LSdw2Y5EoVtmg dHI+IM47KBKbND36dOLt lMNju0yhkBj7YdRx XQTnXTD7iXscFLefe4Ll BIVzW09jxHYnc6M8HHCt qTasbFZaQmPxqEH3rN7p WEnnqohcn6tanbzx Brxvd4jsjx22eI77H52d FCamYHPlMZX4DQXiDRTe nQtfji5rrU3iZn6+IDxj q9tsc6wokBf6ClNn FZVqqvZhxYplRPI5z1Lv Vg15H8OpsEffg2TgKjh3 qq11tXYal9K5gEA1AFro QIEofO1mAJftCiJ5 SMZdGvNztN44eEUeVLqf Nh7peNscvKpgNH3jVAVa aibgIZHsgY6tKPBwlLQo wWveCC0iQQFuhady n453ZfXwYIX8LHXwsJRd R4CclN7kAkJuDOCkDOFb N4SesJLaJTelB686VOpa ZcI9ARVyghWzO7Je GCBomRlzYuU3a5W6Tw8C x1AlvaojBII2OHwpUFS8 ZhU9FrFeMuO6M2QiUzt1 NTGblBwjUU6aO8Cq XNRduivubszjuLQ4BUYx EFHhbM50cUKjVVlxQq0e a2D5z080NDJkTADkxU33 Pl0edJaiQJEcmJRH pB4apgfma9mxspcpPyFq QELiVDg8FHz5SCJzcCby QzPsLQM3OgQ6WQW0jNLl kW3xgMskpbkilG3m Oyc+N09tqE2qZLP8UGY0 xahqDXRdxjKyWC74XN80 H1DwLfcenGIpjNO+PGRp iiVkdVwjDQ0eEcUn h3rdk0PsVXxtT8GzXHJk RNamMoe8OQGwQHV1sZC9 yL7hUQMoNCgrx9H2hZI5 Q5BsshIlym6wc3tq AKWaXAgqK95uhUKwz5T4 NIOwjVE3RGJqdHopVkBy oJ82Tqs+HZAhaHmdx0Pk Taytc0gvx1vrcTa8 IjMwJSIgdmFsaWduPSJ0 d1BzGg83C84qYHlcVBZq WUSgGCGcLVXrvXumry0f cE7bTi7+PGNvbCB3 sNI0oI8oPFMvSzD8CMld J090PyPcdGBzMjfpv2hq n5ivpNd4FnXuOUJcbrSy tVapIEI0y9OxVb36 T23eMDqgTBEyQNXgURNl PWKtcOzupy4pnN4qJj8+ KS8mq1wzdv19fT55qNI+ XLNzHGW8fZwwJUgo DJKxiY5dMJwrBfW2ZOSh LnAonQ16kVFhQKewXe1j oVbvaOonCJ5rSPElsmro h292KsUhb7yjRXOu kJDmSAnwLFJ4J90jj5O8 TIUxVKUzVQK4gNH9zZ3s bGlnbjogbGVmdDsgdmVy kBucYUdqHRmtH680 IHRvcDsnPlBhdGllbnQg OqLoRCl9M7KgXze4HAFp aYsxOP0enKWjIRlbFo7f lPkxkZzyUY5nCIVc elovx853BfBld0nqUTXo oUFiPMstJMM0U99sa9X8 AQYfRGNnOEO7yFQ6cX0n bGlnbjogbGVmdDsg rpRlkTncIEsxVUneF199 IHRvcDsnPkJpcnRoIERh lKC9IK58IA85cEHvt1R0 cLO7A2HfVFEqaetx jqmsgWD3PJCiPGBvuU03 Am0mtRyuIm2uIKJoZCU5 VCEjuGCgU7VxlA7eTiCb SDHwLTWcE4UumRNk BDyvT891IUucOtL4TOBk lsAaJ0SyKQEbvEiiBuL7 k3M2Ch3NA4T7JE24SG07 dPEgt9A3sMD0V9Pw IXKqiojntsybuTB1TIJp TMRxsY83Oj0qzVyvUv8r EBIkGZU2HJSepJIfW1Hz sP9yUnPbCONrEALf B2LomGUtKUlrL536ILqr UxF6CMGeesZyN1HbKULb kKjlBqN1i5U3Fo6XVIt8 WN45LQ45kRKem7K3 iUK0X3BgVWWuynrxdkfz tON8NSMuBDOjsT09Sm3n dWziXu2tCLKmINQ6FLXl nIDiU1KoxK2qPjZe HEOyCRYkE2IaqIXzMEkc B563VLmlKjR1KEXwhmTf K7LvWRIqvBudTcY1c2M5 Kt9QBUWnZZ92USW5 xSJ9NK05ET95U3OaNhjm dGFibGU+PHRhYmxlIHdp ZHRoPScxMDAlJyBzdHls DE6oSp2wBYIdSQZg jNfcdEXrKsAda0heKDJg WByjSX6nhHgaP9AjzCQ9 LRNrp6t3Zo17G95jI9Op dXA+JPFxrMN1iUC7 rR7gOwAdOpK1LUknU731 AbJgeKOxAaqrc1neq5iz qSn5NyO6WDIunzOvdPdo WVT9a6FdYa62L88e IHdpZHRoPSIxNSUiIHZh nPjdrc3sgF3tNv4+PGNv rFU9uLB8tJ7mCyKlToE0 VNzsP430ToJsuRKj Rfhqg4fel3wweFl2OyEl TQPcepVuvAadCHD4l0Zd Mw58S6UruQmtg5SsXui9 fn34rWDme7N6zFW3 O7PrSVEzmxnalBSklFja LO3nEGOwguonMSQnqC0u GUDkW1n2FeQzCrZ0UAtq Q5PnndY7JHUriJIj FUqzEVH0G15oe9S9XLJi DWAnARD5yOM2zR6tqYrk bjogbGVmdDsgdmVydGlj SNcrTMgrW028ZJYq sDpcUPByrZ5iLFJmwVAw jZifWG4qCEOkafleXbVA D0VIH59DNLCKP5DVSsQg IQcMIJ86Y7MoTae8 ANPztZvfYB7ofBVjQWks Xf3maOsteDztVW3vIFSt dikgKHGybF4eZDWmcACf kJpiMU1rTHSgsvri p197GgJvHQW2GAAqbLIb Q6QlzV8uCbIsEHRkIPCl K3CkuPXuHDldL036QAzv HcD3ZSAtheDyV5Ee ABPgpKteInW2a2N6Rf4q UE5lVn4qIIY8HW96VR31 hFSiy9W7nYY0Z4ZnURUb zmacxgazuRY2BKMe FCCciH47yEDbJTcvUu0f g2K1m352YIGdUMIxeV19 Ac4ikEeaWGMtgVLBmT0j thfmd5yurubaOwWn HQRqFEh8RVs5DLYdnWvu NeSfPKO9IxJ0NHM5sTZe oO9jyOtomkydlY1qNlz+ ILCtLVVlgkD1S7Jp Fwp5QGOveUjjLH4blUDr HPruTh4sdVsvxQknAS2g GFPclrzxOAXegO5pMHSx uNXemPdfAC8bFTPy glyag450TbZcMON8TTPu zMIhN0GlzR7hNiEhOXWb KKUkH2NmuHZhYNgkY297 GXyjFuW6PTCsftWe K0YgFAEagBhnIhU6e1U1 Wv4IILzJOX51NC74iSEx h2P0eWJ0Z8KiUYNtohdq ccoqgEY6UIGiDQJh cD21dYDhHElvNy8ks6X4 t164MZOyTUBmpQ03Lr6a pMzvJSJsbXIQfT4fpzmx b3ylrhfjBfXoABZu AZz7YUh1LNJfpEcoReSk YLI2SwN1MGM4lYRctD9e iBevpzyezN4dZyi+RW1l jjssdeH0YG44KL60 I8TyAzaeqXLxtZO+PHRh YmxlIHdpZHRoPScxMDAl RlRzeOfeYQ6yGe1sZHFx LWNvbGxhcHNlOiBj j5mmNAMySHdzLP0ooYqu O7DlvHN9NMNxj7i1Ab12 P61sU3NblFX+PGNvbCB3 bKM0vA1fVgHzEaG3 DFzzP182TpEoyTXkEhbt y4ult5zhpJi2ChDoVLFy mmApmIekXUK3j5RiEz34 Z32nBCrrGTWiMYJf OYKdRFGjyHejvu7hbM6k Ii8+HPImtAH3vAL6dI4r LlRzFcY5LIvlC167YgVd xAIzAevtR73wQ1La dXA+FCBdXwv1JLRflNby SW2fkQHnLJvwJi3vIPV1 JgQuGkPmSCbzR1DsYOBu gfnqnfvcjRX9OMBb WHXtvT16Uy9xwEzrTm9p XVOfEGM9GKEouWTgV7Wh zM7mIoKwBPVyRAIzG6Nx oZJcVAbiY894BXrx XiQ3SQFrmoOdG7VgQFWu hDswJjH1o6N0Bw1UrEpq qAHnEN9lLrLiSXa3G9Ng Knk4YJYppReqGT0x xZEeVKazAu3wpCisnJhn KO5wWTItvaabf876HeFv i0xhLZJckCEjVWfyENZ6 F71em9G6ZECpRSJa FQC9rOF5lU1ctLnltqin bGVmdDsgdmVydGljYWwt HAapJ338DAAauYmiZrEO Ipi4M6CkTms3MSVb sOoaYD5irVTxZZabDv6o bMlkhTpzBG7aSUTybzzo y871YsYca3swVTMfiIGp MOsuRRK5R35kb3B5 KLFcHGJiHFI9jAQ4mQ4p bGlnbjogbGVmdDsgdmVy ySrvKGtoZRjtR730NSSi tEneUq7FUav4N4Vm Tyt7AZCpvCkhJC6lmMTz JCjyHi8kcDljoQqpIN9w CPPawzarw084FyUyz0xd IDEwcHQgVGltZXM7 Z55rq4J9VEWkRVMbRZL9 pAX4gX7viCbzvbbjmUVo dDsgdmVydGljYWwtYWxp S848JCNeiJkeAuKd eWVyOjwvdGQ+NE82cw44 Q1LfUhzyVfl7CHHwDPO0 dCB7kP7aARRyTTfeh1V2 iHM5P9PtzlTyep4d b2x (more content not included)... [facility] Coding Summary HTMLBase 64 AmjadkzhZQj9xNx+PGhl YWQ+PC4RAUHoO58xcLBg gB2EC3hRLG3EFOBSCZAQ NM8LLZ4nnNO8IBanD5Ko biAv KmrmjZHrAC03LDi9KSY4 xTntRHmoeV0klLGnI0i2 EpPaEP53dW41VFxmLKHx QpK2NsNirnufhDGr S8zvRrNrkLWpKqe+PHRh YmxlIHdpZHRoPScxMDAl RsUkrHpaQJ9ePx1dCNFj LWNvbGxhcHNlOiBj g9czOEOgARjzES4isYbr E3EcjRE3ZJHrd2x6Lv58 dHI+YFPrKDM0cYbmBWez l113WtTyg4orFRI2 bEOjOLnePNA4I24gi2L3 DJUiLMUzOOL2lBS7qC3y yTtxbwpaD6GmvXZrFbK4 GGS9vUZqyR0etMhs xcgmlD9kRdn+L71HWA3H ELUOJM8LHok4S0LgJxbc dHI+XK22HKPqOQ36kINi uEGgd7zisWq4OwEh PPTjOLX6gIkbYVnvd2Fh IOZkN51nmHIyw6P1XUXz ySjvrSCwEbUnbYD0sU3k ONaxmkgcl2ukqpof Atqta4qkst64xS20Z48a SBbfCMSqFQY2XNCbKOUk fBnrjj9opS7lIf5+IDxj r4too0jbfPo7WtXl IOWymoPrjHopJEL8y9Ip Fp21Y4XpmDdlm6CiBwq3 hq06nPJak1G5qZZ3SZzt AWWuyR7aDNabZpP8 LJUlScCffQ99aOBkFKpt Tn9qoBvatOxiLV9lMZLp pejiIAZiyL9lFLTpzGLy pHliFL0vZOKqdblj b463BsUhAWX1SJKjlDZc Z2EbsP6kDzKlADMmKPHj H6WhjAVaIWysK298ECuy PcI0FQQwihOgK9Ox YXKulZinTfZ0y8B2Cf1O m5DjsetkRQD1YHuzDQG3 DlX4EoSaBtM0J7MuBlw6 LIVxsUclNY6uJ8Ho YYEbpkvyunoveJH3XNJm TIUgdP58iFQeTRluOx1l y8X6y552VMEeOIJyjT95 Dl2nfToiDMSwoFGN uT1imybki5tktbeeZhVj WNUsTRd7WYd0LZQjiXid ErTeUEG2MqU6VEQ9qWVo cH2nhJuipnjebO1b Oyc+L66foZ2gBUH6AGT6 xabtXOLyboVdIX24XD53 I7XxNqdqqTNvfVF+PGRp kfZzyTngRI6pUsGb d8qly5OuPTlwG5XlYKNh KHrvIkq5NSBiQYG0zPY9 hC7mWJLfWVppm5B3yYI2 A0ZintDouz6ex1rc DAGdCKqbT69gtZIlq4R4 CYWyjJI0EJUipIxfJgHx dN80Vub+ZVAmbHwpt9Jz Nqgob2xpz5wlnAc9 IjMwJSIgdmFsaWduPSJ0 l9ReSi22A79hAFhbBAOv HYUhFCKcJVFdrAyodk7s cP7aEq1+PGNvbCB3 tKH0qP5qBZImYuD2HZsy W390KcGstTIcPdmpd1sh k3jscBf8HjKqGVTsqqMz xKnjYOY9j2VuOf73 Z03yKRfgNPFpHJHrXODy NTLxaTrsck7noG1dAu3+ FX5wv7mgrg74tM02gUB+ KANdDKC1qPwjHAkq FIEplE3pDLgbPrC1DOGr MnZsfM15yCAiBSseIa9j gTihgVyaKV3xYMVmdpcg h102DdAyp5vsMWPq ePMiLTsfUKC3N63ab1P4 SBKiPSCbVQI2xWF6wS7r bGlnbjogbGVmdDsgdmVy gDmmUNfcOLkvB015 IHRvcDsnPlBhdGllbnQg DxIvLKr8R2XcBvl9CNRd dWocFW7ypPQuURnaPr4g jVtcoRblKR7aVEMs rfjnt996DoLeq5awIHQr mGUeWDhwJAF0K27ek4Q8 CFIdGXGeEDX0fED2eN0k bGlnbjogbGVmdDsg brAhaTkhDAgyFCqgP266 IHRvcDsnPkJpcnRoIERh oAJ4BY37JK85qCSpy1P8 rIY9G2VtTGXbwqtq kgfzfUL1WSPjTZOctC55 Ww0jlXkwAn7wBYGyNFA5 MQNnbZClW8QawD2dFvKf IHNtUCBwA7JcjXCl SNpvH641VXchLlY7ISJd zcBqB5VeMKXqoIitVkS7 v7S9Ff2OB9Z0BB15JF37 uYMhn3P0aVK0V5Zj YGOcbsuepavrxRX0XTJg WLGqjU96Ty5zgTmxSq6p XVWhSYP8BUXupLWfQ4Xo nC8oTjMtVMEdDYUz A2RqfKFmBQgdP378WPxk ByY9QHLjfbLuX6FqJDFx xYzrJuI7x7X5Ne4SOMi3 ZU21AA82hAKvs5J7 rXO0F5YiWUFuhowukctu rEG1DTKkVPYvhW78Sn5f aYipEu0yPJOqHZY1LRSb nCGqU0LxzT3cZbQe JHPiIZTcQ9XshCQgGUlr R471KYetSjT7IQYagyMm H0KlUNGtnBsyKlZ9n4O6 Iw2LBACwDN75ZTQ0 gBJ4WB91OU99X1JqIosd dGFibGU+PHRhYmxlIHdp ZHRoPScxMDAlJyBzdHls DB9uXs8eTHQpSUXb eMfvxZMaLvYqc9mtJKPy SSmfMN0mcBhwI9FudYC1 TMPeq7q3Ll78Y81bP0Nz dXA+STBmhFA6yMG1 nE3wZiCaPcC4YTalC063 XpPldQFeDozre2dtw6pw zJf3ZbF4OYRxaiOhfNwo SAK8a4WyDl35D13f IHdpZHRoPSIxNSUiIHZh gNyxou6brG0aCe4+PGNv qRW6mRU4hJ8nBrCgVuC1 SFtvW508QlCruLEa Gtgsp4yzb5fhqZu4IlQy NGQhpxIjnRgkGSW9s8Uz Pq64P0AbpXgue0PfAju0 ot25aYXdp2A3zTZ1 O8TsGHYxcohpmFCufFyu NO5iDSYhagwkSTQcuB0o FKFmP0y6AyRvMkW4CRej D4ZsepY0LBOtuZEw DUntMDD6D63au3M6YDLd BYUwBMV3pNC1kE2jbWsm bjogbGVmdDsgdmVydGlj SXcwTPewZ184XBEs iPvlESBraS2dFPPurEHo cVeyJU1gIPIukxljHoQK Y4LDK75OCEMWD3NWAxUs OKaRDD49Y8MrSpz9 WEBmbDusKM1gwOOaBMpd Te0wrTeyhGgwPF7xPGCd xrkkQYAjmI6cNLHmhQYk kYpuKI6kIAWrkagd o646VpLpCCP5GTPcsMKy M5WzkV7iUcEfAPAmYLJz P0AajXRlULoeT715UDvy XsN8NDJvrbIiM2Ry XEQoyKfkPgQ0e6J5Wd8e IT4yXt9cCON1SL79TW78 rHXwk2U6cPF3A7DsEFHz mgaicvgmxEY2ATHe MCPmqJ36tPAeYVawIc3x a9I1m958BDDrCTPwuB98 Sa4qjSouRKFuuEKUaD8y wtvfi6vnqucuBnSe NCPhFEe4WTf4BNCgeSag VrWrEKM8VbZ6LVY6nFYs jT7tlXlsgmnesN3tXve+ DNXiHMZblhK6H1Ep Wgw9BQSnlZlnJU6pbBQv JBncFm8kuBhwhKqwDT4a HMAdezgoSPZxtE3qNEDi rSVbzUzpGX5eILDu sppru927FhKoVSS5PQYj mDHsV1IsvL8kInRoKPTk BTWaN3AznKAuBIzfM652 OSpfPuJ7HZFoqrHh Q8HfYBYghFolUqA4f2V3 Xf4BDFyLYL81ZA14aMHy j8O4fAY3D7IcDZJagfef valfzEB9XYExKCFz kB02tNXvPNxgJw5zc2A2 v133DVVnYOEnaC82Vv8l oDudUPJncDMWjG7sxczj i8rkeniqJcCbHQBj NJi8JWz3VLDhrQhpXgBe MBB6BrO7PUN5uIPrlY0m yKjklvcjuS3kMui+RW1l bxlajpH2CG82BI69 T3VbEnexoOAneNN+PHRh YmxlIHdpZHRoPScxMDAl KxXanGxoNU1fBw4fISSi LWNvbGxhcHNlOiBj m9pwZDUoASgtPU8mlKlm O7FuiLV6UUIyd6v9Wr90 P51uW0YawJJ+PGNvbCB3 oAT9xT1zHgFiSyU7 FHhpX500VfDmlIKtWebf a5gak1krdGt4FjHiIVKh rlBfgWkgIMS2j4ReCs05 W26sBTiwFOPeTJMx YZJhAQDiiYxjol5zqB0y Ii8+LZSyhXX6oLO0mD0g UyJlFxZ2WWoeH795HxFk aPAsVdifO51bA4Tz dXA+UONeMry7TJZwyLrz SH7trFCvWWezJd5zNEB7 UlGuXgZlVAhuS3PbIPWo uczmjkkszZC5QMDv XRTyiH68Ug2mpObnTt5k ZFDpJKA9FGMyeYQgN1Ph zB6gGkHwXIOmVXJkR1Nm dOIqFTaeT059NVom SiQ9IDRaaoNqD3TkMVEk pNmrIxO1f0C8Ge0UaLzp hXQqTU3qUzHtSBy6W9Qt Eou9BXUauCsaBM9e qMKaVSkdBw2rtEkbpOec AC1kGPAplldoz558YjKy e1puMUJhiMBhXAklPIS2 G12wk7L3RCHtVXOs QVK1jFN4bB9umHffxyhs bGVmdDsgdmVydGljYWwt CZiqL661DROdoPmyFwTS Ath1A0NrYgy6XVRo gRjqYA4rjUUaAAwwWl1d yUjmnFtxNR0yTVEcwhir b109FgKam4elGAQviKIl JDhtMXG5Y76pb1H3 WCPiJOCoPNH4cXS8dU6n bGlnbjogbGVmdDsgdmVy gMvdLIdfYLvdE958HIBs lWlnFe3LRbq7N5Ky Qch9CMSteWefFH0vnJWx FSnuOf4ozSyfeMzfUF8r AKNyrfiig811QcOqm4zw IDEwcHQgVGltZXM7 A76uz2U4IEVdWMWrAUV1 rQL8lK9dhDjznvjqkEYb dDsgdmVydGljYWwtYWxp V237NTLdyMgrMdOe eWVyOjwvdGQ+LN80gb15 N9FiLwhjJjf8TRIqWZL5 rHU1eS4pZVRzGItno5D0 oEL4I0FkdmLcld6d b2x (more content not included)... Normal [facility] ED Clinical Summaryon 2020 ED Clinical Summary [facility] - Emergency Department [address] [place], [place] [id number] ED Clinical Summary PERSON INFORMATION Name: ROSA EASTMAN Age: 55 Years Sex: MALE : 1965 MRN: Acct#: Visit Reason: Hand pain-swelling; RIGHT WRIST PAIN Arrival: 04/01/2021 19:05:43 Discharge: 04/01/2021 19:35:00 LOS: 000 00:30 Check In: 04/01/2021 19:05:43 Checkout:04/01/2021 19:35:00 Address: [address] [place] [address] PCP: Provider, None PROVIDER INFORMATION Provider Role [...] Follow-Up: With: Address: When: Andrew Mckenzie DO [address] [place] [id number] Within 3 to 5 days DIAGNOSIS: 1:Sprain of right wrist Patient Understands: Yes - Patient/family/careg iver verbalizes understanding of instructions given Comment: Normal [facility] ED Patient Summaryon 021 ED Patient Summary [facility] - Emergency Department [address] [place] [id number] PATIENT DISCHARGE INSTRUCTIONS Patient Information Name: ROSA EASTMAN Age: 55 Years Date of : 1965 Reason For Visit: Hand pain-swelling; RIGHT WRIST PAIN Arrival Time: 04/01/2021 19:05:43 Primary Care Physician: Provider, None Attending Physician: Medhat Hernandez MD Comment: Visit Diagnosis: Diagnoses This Visit Hand pain-swelling ([id number]) Sprain of right wrist (S63.501A) Prescription Information: If you have been given a prescription for narcotics, seek immediate medical attention if you have any difficulty breathing or any sudden status changes such as confusion and sleepiness. If you or anyone you know is experiencing suicidal thoughts, mental health, alcohol and/or drug addiction problems; contact the [facility] 02/06 Crisis Hotline -Text 4HLLW bt 585781. If you received any narcotics, sedation, or [...] documents With: Address: When: Andrew Mckenzie DO [address] [place] [id number] Within 3 to 5 days Medication Information: The exam and treatment you received today in the [facility] Emergency Department were for an urgent problem and are not intended as complete care. It is important for you to follow up with a doctor, nurse practitioner, or physician?s social and human services assistant for ongoing care. If your [...] so we can reach you if necessary. [facility] Emergency Department has provided you with a complete list of medications post discharge. Please inform your manager food safety/provider of your visit and for further instruction on these medications. Any specific questions regarding your chronic medications and dosages should be discussed with your primary care physician(s) and/or pharmacist. Medications to Continue That Have Not Changed Other Medications acetaminophen-hydroc odone (hydrocodone-acetami nophen 5 mg-325 mg ([place] 5)) 1 tab(s) Oral Every 6 hours [...] With poor (more content not included)... Normal [facility] Vital Signs Date Time Vital Sign Value Performing Clinician Facility 03-23-2025 13:13-0400 Body height 172.7 cm Charmaine Lowe PA Work Phone: [facility] 03-23-2025 13:13-0400 Body mass index (BMI) [Ratio] 31.02 kg/m2 Charmaine Lowe PA Work Phone: [facility] 03-23-2025 13:13-0400 Body weight 92.53 kg Charmaine Lowe PA Work Phone: [facility] 03-23-2025 13:13-0400 Diastolic blood pressure 86 mm[Hg] Charmaine Lowe PA Work Phone: [facility] 03-23-2025 13:13-0400 Systolic blood pressure 130 mm[Hg] Charmaine Lowe PA Work Phone: [facility] 12-28-2024 13:00-0500 Body height 172.7 cm Charmaine Lowe PA Work Phone: [facility] 12-28-2024 13:00-0500 Body mass index (BMI) [Ratio] 30.87 kg/m2 Charmaine Lowe PA Work Phone: [facility] 12-28-2024 13:00-0500 Body weight 92.08 kg Charmaine Lowe PA Work Phone: [facility] 12-28-2024 13:00-0500 Diastolic blood pressure 78 mm[Hg] Charmaine Lowe PA Work Phone: [facility] 12-28-2024 13:00-0500 Systolic blood pressure 132 mm[Hg] Charmaine Lowe PA Work Phone: [facility] 12-14-2024 14:15-0500 Body height 172.7 cm Hilario Small MD Work Phone: [facility] 12-14-2024 14:15-0500 Body mass index (BMI) [Ratio] 31.02 kg/m2 Hilario Small MD Work Phone: [facility] 12-14-2024 14:15-0500 Body weight 92.53 kg Hilario Small MD Work Phone: [facility] 12-14-2024 14:15-0500 Diastolic blood pressure 78 mm[Hg] Hilario Small MD Work Phone: [facility] 12-14-2024 14:15-0500 Heart rate 91 /min Hilario Small MD Work Phone: [facility] 12-14-2024 14:15-0500 Systolic blood pressure 136 mm[Hg] Hilario Small MD Work Phone: [facility] 09-06-2024 13:16-0400 Body height 172.7 cm Candida Sidhu PA Work Phone: [facility] 09-06-2024 13:16-0400 Body mass index (BMI) [Ratio] 32.54 kg/m2 Candida Sidhu PA Work Phone: [facility] 09-06-2024 13:16-0400 Body weight 97.07 kg Candida Sidhu PA Work Phone: [facility] 09-06-2024 13:16-0400 Diastolic blood pressure 80 mm[Hg] Candida Sidhu PA Work Phone: [facility] 09-06-2024 13:16-0400 Heart rate 59 /min Candida Sidhu PA Work Phone: [facility] 09-06-2024 13:16-0400 Respiratory rate 16 /min Candida Sidhu PA Work Phone: [facility] 09-06-2024 13:16-0400 SaO2% (BldA) [Mass fraction] 99 % Candida Sidhu PA Work Phone: [facility] 09-06-2024 13:16-0400 Systolic blood pressure 120 mm[Hg] Candida Sidhu PA Work Phone: [facility] 12-09-2023 15:33-0500 Body height 172.7 cm Hilario Small MD Work Phone: [facility] [employer] [facility] 12-09-2023 15:33-0500 Body mass index (BMI) [Ratio] 31.02 kg/m2 Hilario Small MD Work Phone: [facility] [employer] [facility] 12-09-2023 15:33-0500 Body weight 92.53 kg Hilario Small MD Work Phone: [facility] [facility] 12-09-2023 15:33-0500 Diastolic blood pressure 78 mm[Hg] Hilario Small MD Work Phone: [facility] [facility] 12-09-2023 15:33-0500 Heart rate 79 /min Hilario Small MD Work Phone: [facility] [employer] 12-09-2023 15:33-0500 Systolic blood pressure 130 mm[Hg] [facility] 02-20-2023 14:00-0400 Body height 172.72 cm Josué Evangelista Other [employer] Other 02-20-2023 14:00-0400 Body mass index (BMI) [Ratio] 32.08 kg/m2 Josué Evangelista Other [employer] Other 02-20-2023 14:00-0400 Body weight 95.71 kg Josué Evangelista Other [employer] Other 02-20-2023 14:00-0400 Diastolic blood pressure 80 mm[Hg] Josué Evangelista Other [facility] [employer] Other 02-20-2023 14:00-0400 Systolic blood pressure 130 mm[Hg] Josué Evangelista Other [facility] [employer] Other 01-22-2023 09:40-0400 Diastolic blood pressure 84 mm[Hg] DO Britt Rumschlag Work Phone: [facility] 01-22-2023 09:40-0400 Heart rate 70 /min DO Britt Rumschlag Work Phone: [facility] 01-22-2023 09:40-0400 Respiratory rate 16 /min DO Britt Rumschlag Work Phone: [facility] 01-22-2023 09:40-0400 SaO2% (BldA) [Mass fraction] 96 % DO Britt Rumschlag Work Phone: [facility] 01-22-2023 09:40-0400 Systolic blood pressure 136 mm[Hg] DO Britt Rumschlag Work Phone: [facility] 01-22-2023 08:47-0400 Body temperature 98 [degF] DO Britt Rumschlag Work Phone: [facility] 01-22-2023 08:12-0400 Inhaled oxygen flow rate 10 L/min DO Britt Rumschlag Work Phone: [facility] 01-22-2023 07:35-0400 Body height 172.72 cm DO Britt Rumschlag Work Phone: [facility] 01-22-2023 07:35-0400 Body mass index (BMI) [Ratio] 32.4 kg/m2 DO Britt Rumschlag Work Phone: [facility] 01-22-2023 07:35-0400 Body weight 96.8 kg DO Britt Rumschlag Work Phone: [facility] 03-13-2022 11:45-0400 Body height 172.72 cm Harvey Holt Other [employer] Other 03-13-2022 11:45-0400 Body mass index (BMI) [Ratio] 32.23 kg/m2 Harvey Holt Other [employer] Other 03-13-2022 11:45-0400 Body weight 96.16 kg Harvey Holt Other [employer] Other 01-14-2022 14:30-0500 Body height 172.72 cm Harvey Holt Other [employer] Other 01-14-2022 14:30-0500 Body mass index (BMI) [Ratio] 32.23 kg/m2 Harvey Holt Other [employer] Other 01-14-2022 14:30-0500 Body weight 96.16 kg Harvey Holt Other [employer] Other 09-19-2021 11:00-0500 Body height 172.72 cm Harvey Holt Other [employer] Other 09-19-2021 11:00-0500 Body mass index (BMI) [Ratio] 32.23 kg/m2 Harvey Holt Other [employer] Other 09-19-2021 11:00-0500 Body weight 96.16 kg Harvey Holt Other [employer] Other 09-19-2021 11:00-0500 Diastolic blood pressure 87 mm[Hg] Harvey Holt Other [employer] Other 09-19-2021 11:00-0500 Systolic blood pressure 130 mm[Hg] Harvey Holt Other [employer] Other Encounters Encounter Date Encounter Type Care [...] problems Start: 12-28-2024 End: 12-28-2024 ambulatory CHARMAINE CASTRO Not Available Start: 12-14-2024 End: 12-14-2024 [...] MD Facility: [facility] Start: 09-06-2024 End: 09-06-2024 [employer] Candida PUENTES Work Phone: [facility] Start: 09-06-2024 End: 09-06-2024 [employer] Candida PUENTES Work Phone: [facility] [...] 06-28-2024 End: 06-28-2024 ambulatory [facility] Start: 04-22-2024 End: 04-22-2024 ambulatory CANDIDA SIDHU Not Available Start: 04-19-2024 End: 04-19-2024 ambulatory [facility] Start: 03-15-2024 End: 03-15-2024 ambulatory Richard Lezama MD Facility:[facility] Start: 12-09-2023 End: 12-09-2023 Office outpatient visit 15 minutes Hilario Small MD Work Phone: [facility] Comment on above: Benign localized pro static hyperplasia with lower urinary tract symptoms (LUTS) (Primary Dx) Start: 10-15-2023 End: 10-15-2023 [facility] Start: 10-14-2023 End: 10-15-2023 ambulatory BRITT RUMSCHLAG [facility] Start: 03-04-2023 End: 03-05-[address] DOCTOR GARCIA Facility: Start: 02-28-2023 End: 02-28-2023 ambulatory Josuéadelaida Evangelista Other [employer] Other Start: 02-28-2023 Telephone encounter Josué Evangelista [facility] Start: 02-20-2023 End: 02-20-2023 ambulatory Josué Evangelista Other [employer] Other Start: 02-20-2023 Postop follow up vis it related to original px Josué Evangelista [facility] Start: 01-22-2023 End: 01-22-2023 Admission to same day surgery center DO Britt Rumschlag Work Phone: [facility] [place] Start: 01-22-2023 End: 01-22-2023 ambulatory Josué Evangelista Facility:[facility] Start: 01-22-2023 End: 01-22-2023 ambulatory DO Britt Rumschlag Work Phone: [facility] Work Phone: Start: 01-13-2023 End: 01-13-2023 ambulatory Josué Evangelista Facility:[facility] Start: 01-13-2023 End: 01-13-2023 ambulatory DO Britt Rumschlag Work Phone: [facility] Work Phone: Start: 01-13-2023 End: 01-13-2023 Patient encounter procedure DO Britt Rumschlag Work Phone: [facility] Work Phone: Start: 12-06-2022 End: 12-06-2022 ambulatory Josué Adelaida Evangelista Facility:[facility] Start: 12-06-2022 End: 12-06-2022 Patient encounter procedure DO Britt Rumschlag Work Phone: [facility] [place] Work Phone: Start: 08-10-2022 End: 08-10-2022 ambulatory [facility] Facility: Start: 07-08-2022 End: 07-08-2022 ambulatory Candida Sidhu Facility:[facility] Start: 07-08-2022 End: 07-08-2022 Patient encounter procedure [facility] [address] Start: 06-21-2022 End: 06-21-2022 ambulatory Candida Sidhu Facility:[facility] Start: 06-21-2022 End: 06-21-2022 Patient encounter procedure [facility] [place] Start: 03-13-2022 End: 03-13-2022 ambulatory Harvey Holt Other [facility] [employer] Other Start: 03-13-2022 Office outpatient vi sit 15 minutes Harvey Holt [facility] Start: 01-14-2022 End: 01-14-2022 ambulatory Harvey Holt Other [facility] [employer] Other Start: 01-14-2022 Office outpatient vi sit 15 minutes Harvey Holt [facility] Start: 10-16-2021 Admission to [facility] surgery center Harvey [facility]id[facility] Start: 10-16-2021 End: 10-16-2021 ambulatory Harvey Holt Other [facility] [employer] Other Start: 09-19-2021 End: 09-19-2021 ambulatory Harvey Holt Other [facility] [employer] Other Start: 09-19-2021 Office outpatient ne w 45 minutes Harvey Holt [facility] Procedures Date Procedure Procedure Detail [...] Influenza vaccination Influenz a Vaccine (Season Ended) [facility] Start: 06-09-2025 End: 06-09-2025 Patient encounter procedure 06/09/2025 11:20 AM EDT Office Visit [facility] [address] [place] [phone] Charmaine Ackerman NP [address] [place], [place] [facility] E[facility]IOTT Start: 03-23-2025 End: 03-23-2025 Patient encounter procedure 03/23/2025 1:00 PM EDT Office Visit [facility] ELLIOTT [address] [place] [address] Charmaine Castro PA [address] [place], [place] [id number] Arrived [facility]ANTHA ELLIOTT Comment on above: Arrived Start: 02-01-2025 End: 02-01-2025 Patient encounter procedure 02/01/2025 12:40 PM EDT Office Visit [facility] ELLIOTT [address] [place] [phone] Charmaine Castro PA [address] [place] [address] [facility] Start: 01-25-2025 End: 01-25-2025 Patient encounter procedure 01/25/2025 11:00 AM EDT Procedure Visit [facility]TH[facility]LLI[facility] [address] [place] [phone] Mani Carpenter MD [address] [place] [address] [facility] Start: 12-28-2024 End: 12-28-2025 [...] Office Visit [facility] [address] [place] [address] [place] [address] Hilario Small MD [address] [place] [address] [phone] [facility] Start: 12-09-2024 Adult BMI Screening Adult BMI Screen ing [facility] Start: 12-09-2024 Tobacco Screening Tobacco Screening [facility] Start: 12-08-2024 End: 11-08-2025 Prostatic specific antigen, diagnostic Prostatic specific antigen, diagnostic Lab Routine Benign localized prostatic hyperplasia with lower urinary tract symptoms (LUTS) Expected: 12/08/2024 (Approximate), Expires: [facility]08[facility]: Comment on above: Expected: 12/08/2024 (Approximate), Expires: 11/08/2025 Start: 09-06-2024 End: 09-06-2024 Patient encounter procedure 09/06/2024 1:20 PM EDT Office Visit [facility] [place] [facility] [address] [place] [address] Candida Sidhu PA [address] [place] [address] Arrived [facility] Comment on above: Arrived Start: 07-11-2024 COVID-19 Vaccine ( season) COVID-19 Vaccine ( season) [facility] Start: 07-11-2024 Influenza vaccination N [facility] Start: 03-10-2024 Tobacco Counseling Tobacco Counselin g [facility] Start: 07-11-2023 COVID-19 Vaccine ( season) COVID-19 Vaccine ( season) [facility] Start: 07-11-2023 Influenza vaccination Influenza Vacc ine [facility] Start: 01-22-2023 End: 01-22-2023 [facility] Start: 07-08-2022 MRI of head MR head/brain wo con [facility] Start: 07-08-2022 End: 07-08-2022 Patient encounter procedure Departed Clinical [facility] [address] Start: 2017 Administration of varicella zoster vaccine Zoster (Shingles) Vaccine (1 of 2) [facility] Start: 1986 DTaP,Tdap and Td Vac cines (1 - Tdap) DTaP,Tdap and Td Vaccines (1 - Tdap) [facility] Start: 1985 Adult BMI Follow Up Plan Adult BMI Follow Up Plan [facility] Start: 1979 Depression Screening Depression Scre ening [facility] Start: 1967 Screening for malign ant neoplasm of colon [facility] Start: 1967 Tobacco Counseling Tobacco Counseldot driscoll [facility] Patient referral [facility] Work Phone: Immunizations Immunization Date Immunization Notes Care Provider Augustus villanueva 03-07-2021 COVID-19 mRNA, Comirnaty (Pfizer) [facility] 02-14-2021 COVID-19 mRNA, Comirnaty (Pfizer) [facility] 12-08-2020 influenza virus vaccine, unspecified formulation Candida PUENTES Work Phone: [facility] Payers Date Payer Category Payer Unknown 2022 Medicaid [id number] 2022 Medicaid [id number] 2022 Self-pay [id number] 1967 Unknown [id number] 2.16.84 0.1.237426.3.579.2.593 1967 Unknown [id number] 2.16.84 0.1.907599.3.579.2.593 1967 Unknown [id number] 2.16.8 40.1.608646.3.579.2.173 1967 Unknown [id number] 2.16.8 40.1.222722.3.579.2.173 1967 Unknown [id number] 2.16.8 40.1.758398.3.579.2.173 1967 Unknown [id number] 2.16. 840.1.486571.3.579.2.196 1967 Unknown [id number] 2.16. 840.1.461451.3.579.2.196 1967 Unknown [id number] 2.16. 840.1.954378.3.579.2.196 1967 Unknown [id number] 2.16. 840.1.345972.3.579.2.196 1967 Unknown [id number] 2.16. 840.1.499685.3.579.2.196 1967 Unknown [id number] 2.16. 840.1.390881.3.579.2. 1967 Unknown [id number] 2.16. 840.1.139703.3.579.2.196 1967 Unknown [id number] 2.16.84 0.1.606136.3.579.2.1259 1967 Unknown [id number] 2.16.84 0.1.728714.3.579.2.9 1967 Unknown [id number] 2.16.84 0.1.490431.3.579.2.9 1967 Unknown [id number] 2.16.84 0.1.761841.3.579.2.1259 1967 Unknown [id number] 2.16.84 0.1.107222.3.579.2.9 1967 Unknown [id number] 2.16.84 0.1.058555.3.579.2.1259 1959 Unknown [id number] 2.1 6.840.1.602648.19 Unknown [id number] 2.1 6.840.1.240323.19 Unknown [id number] 2.16.8 40.1.996705.3.579.2.531 Unknown [id number] 2.16.8 40.1.584477.3.579.2.531 Unknown [id number] 2.16.8 40.1.226930.3.579.2.531 Unknown [id number] 2.16.8 40.1.519827.3.579.2.531 Unknown [id number] 2.16.8 40.1.909743.3.579.2.531 Social History Date Type Detail Facility Start: 04-23-2024 End: 02-01-2025 Sex Assigned At [facility] [employer] Other Start: 10-16-2021 End: 01-22-2023 Tobacco smoking status NHIS Smoker (finding) [facility] Start: 1965 Sex Assigned At Male [facility] Start: 09-10-2022 End: 04-23-2024 Tobacco smoking status COIS Smokes tobacco daily [facility] History of tobacco use Cigarette Smoker [facility] Start: 04-23-2024 Tobacco use and exposure User of smokeless tobacco [facility] Start: 04-23-2024 End: 02-01-2025 Alcoholic beverage intake Current drinker of alcohol (finding) [facility] Start: 04-23-2024 End: 02-01-2025 History of Social function [facility] How often to you hav e a drink containing alcohol? Monthly or less [facility] How many standard drinks containing alcohol do you have on a typical day? 1 or 2 [facility] How often do you hav e 6 or more drinks on 1 occasion? Less than monthly [facility] Start: 1965 Sex assigned at Not on file [facility] Start: 09-10-2022 Tobacco use and exposure Smokeless tobacco non-user [facility] Childcare Unknown [facility] Start: 05-03-[address] [facility] Start: 07-12-2015 Sex Male (finding) [facility] Medical Equipment Procedure Code Equipment Code Equipment Origin al Text Equipment Identifier Dates BONE 7MM DUO FORTITUDE SERIES FDA Start: 10-16-2021 Spinal fixation plate, non-bioabsorbable ()[id number] FDA Start: 10-16-2021 Bone-screw inter nal spinal fixation system, non-sterile ()[id number] FDA Start: 10-16-2021 Bone-screw inter nal spinal fixation system, non-sterile ()[id number] FDA Start: 10-16-2021 BONE 7MM DUO FORTITUDE [...] Review Audit Reviewed by Stef Berg MA (Associate Dentist) on 03/23/25 at 1314 Medication Order Taking? Sig Documenting Provider Last Dose Status cyclobenzaprine (Flexeril) 5 MG tablet [id number] Yes TAKE 2 TABLETS BY MOUTH AT BEDTIME DELORIS Betancur Active gabapentin (Neurontin) 100 MG capsule [id number] Yes Take 100 mg by mouth in the morning and 100 mg before bedtime. Historical Provider, Active latanoprost (Xalatan) 0.005 % ophthalmic solution [id number] Yes Administer 1 drop into both eyes at bedtime DELORIS Steele Active meclizine (Antivert) 25 MG tablet [id number] Yes Take 25 mg by mouth as needed in the morning and 25 mg as needed at noon and 25 mg as needed in the evening for dizziness. DELORIS Steele Active omeprazole (PriLOSEC) [address] capsule [id number] Yes Take 40 mg by mouth in the morning. Take before meals. Do not crush or chew. Historical Provider, Active rosuvastatin (Crestor) 10 MG tablet [id number] Yes Take 10 mg by mouth Daily [...] triceps, wrist extensors, wrist extensors, wrist flexor, grinder hardboard strength 5/5. LUE Strength deltoid, biceps, triceps, wrist extensors, wrist extensors, wrist flexor, grinder hardboard strength 5/5. RLE Strength illopsoas, quadriceps, tibialis [...] in 2-3 months documented in this encounter [facility] 12-14-2024 History of Presen t illness Narrative Images from the original note were not included. [address] [place] [address] [facility] [id number] Patient: Rosa Eastman Date of : 1965 [...] 05/03/2021 Performed by Carlos Olmos MD at [facility] SURGERY TONSILLECTOMY ULNAR NERVE REPAIR [...] for your understanding. documented in this encounter [facility] 12-09-2024 Miscellaneous Notes Contacted the Pt. To remind him to get his PSA drawn before his appt on Friday with MD Drew. No further questions at this time. documented in this encounter [facility] 12-09-2024 Telephone encounter Note Contacted the Pt. To remind him to get his PSA drawn before his appt on Friday with MD Drew. No further questions at this time. [facility] [employer] 09-06-2024 History of Presen t illness Narrative [...] Review Audit Reviewed by Sophy Hays MA (Associate Dentist) on 09/06/24 at 1323 Medication Order Taking? Sig Documenting Provider Last Dose Status cyclobenzaprine (Flexeril) 5 MG tablet [id number] Take 2 tablets (10 mg) by mouth at bedtime DELORIS Steele 09/01/24 2359 gabapentin (Neurontin) 100 MG capsule [id number] Take 100 mg by mouth in the morning and 100 mg before bedtime. Historical ProviderMD Active latanoprost (Xalatan) 0.005 % ophthalmic solution [id number] Administer 1 drop into both eyes at bedtime DELORIS Steele Active meclizine (Antivert) 25 MG tablet [id number] Take 25 mg by mouth 3 (three) times a day as needed for dizziness DELORIS Steele Active omeprazole (PriLOSEC) [address] capsule [id number] Take 40 mg by mouth in the morning. Take before meals. Do not crush or chew.. Historical ProviderMD Active rosuvastatin (Crestor) 10 MG tablet [id number] Take 10 mg by mouth Daily Historical [...] -admits weakness in hand and trouble with grinder hardboard -finds himself dropping things -balance is good [...] triceps, wrist extensors, wrist extensors, wrist flexor, grinder hardboard strength 5/5. LUE Strength deltoid, biceps, triceps, wrist extensors, wrist extensors, wrist flexor, grinder hardboard strength 5/5. RLE Strength illopsoas, quadriceps, tibialis [...] EMG pending course documented in this encounter [facility] 12-09-2023 History of Presen t illness Narrative Images from the original note were not included. [address] [place] [phone] Patient: Rosa Eastman Date of : 1965 [...] 05/03/2021 Performed by Carlos Olmos MD at [facility] EYE SURGERY TONSILLECTOMY ULNAR NERVE REPAIR [...] for your understanding. 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 I will see him on an as-needed basis I think he has had a good outcome overall. [employer] Other 05-04-2022 Evaluation note* Encounter Date Diagnosis [...] Cervical spondylosis with myelopathy (ICD-10 - M47.12) [employer] Other 03-29-2022 NoteEducation Materials Neurology Paresthesia Paresthesia [...] or sweet foods. General instructions ? Take gnbt-bqu-lsgqpuy and prescription medicines only as told by [...] provider. Document Revised: 11/22/2019 Document Reviewed: 11/05/2018 [employer] Patient Education ? 2020 [employer]. Orthopedics Cubital Tunnel Syndrome Cubital tunnel syndrome [...] ? Playing contact sports, (more content not included)...[facility] 01-14-2022 Evaluation note* Encounter Date Diagnosis [...] will see him on an as-needed basis. [employer] Other 11-10-2021 Evaluation note* Encounter Date Diagnosis [...] They understand and would like to proceed [employer] Other 09-27-2021 Note [id number]05-23-2021 NoteEducation Materials Orthopedics Wrist Sprain, Adult [...] health care provider. General instructions ? Take impd-ztw-ygvctea and prescription medicines only as told by [...] Reviewed: 05/15/2017 Elsevier Patient Education ? 2019 [employer] Wrist and Forearm Exercises Ask your health care provider which exercises are safe for you. Do exercises exactly as told by your health care provider and adjust them as directed. It is normal to feel mild stretching, pulling, tightness, or discomfort as you do these exercises. Stop right away if you feel sudden pain or your (more content not included)...[facility] note[facility] InformationNort RockYou Other evaluation noteNo assessment information available [facility] Work Phone: Evaluation note* Diagnosis Balance problems- Primary Abnormality of gait Hyper reflexia Abnormal reflex Lightheadedness Dizziness and giddiness Lumbar back pain Lumbago GIRMA (obstructive sleep apnea) Obstructive sleep apnea (adult) (pediatric) Memory change Memory loss documented in this encounter [facility] HealthcareEvaluation note* Diagnosis Benign localized prostatic hyperplasia with lower urinary tract symptoms (LUTS)- Primary Benign localized prostatic hyperplasia with lower urinary tract symptoms (LUTS)- Primary [facility] Diagnosis Benign localized prostatic hyperplasia with lower urinary tract symptoms (LUTS)- Primary documented [facility] Diagnosis Radiculopathy, cervical region- Primary Brachial neuritis or radiculitis nos Memory change Memory loss GIRMA (obstructive sleep apnea) Obstructive sleep apnea (adult) (pediatric) Balance problems Abnormality of gait documented in this encounter [facility] HealthcareEvaluation note* Diagnosis Lumbosacral radiculopathy- Primary Thoracic or lumbosacral neuritis or radiculitis, unspecified Ulnar neuropathy at elbow of right upper extremity Balance problems Abnormality of gait Memory change Memory loss GIRMA (obstructive sleep apnea) Obstructive sleep apnea (adult) (pediatric) documented in this encounter [facility] HealthcareHistory general Narrative - Reported* Type Description Date Surgical History (R) carpal tunnel release Surgical History (R) Ulnar nerve release Surgical History tonsillectomy Hospitalization History See Above [employer] Other Hospital Discharge instructions Additional Instructions Use [...] Any unusual redness or drainage contact the [facility] Work Phone: InstructionsNot on filedocumented in this encounter [facility]ructionsNot on filedocumented in this encounter [facility]* Attachments The following attachments cannot be sent through Care Everywhere. * Benign prostatic hyperplasia (enlarged prostate) (Lithuanian) [facility] Purpose Family History [...] Associates Referred Provider Mani Carpenter Referred Address [address] [place] [phone] Referred Provider Specialty Neurology Referral Priority Routine [...] section and content) DATE CREATED AUTHOR 02/16/2022 [facility] DATE CREATED AUTHOR AUTHOR'S ORGANIZ ATION 01/23/2023 [facility] DATE CREATED AUTHOR AUTHOR'S ORGANIZ ATION 03/08/2023 [facility] DATE CREATED AUTHOR AUTHOR'S ORGANIZ ATION 10/18/2023 [facility] DATE CREATED AUTHOR AUTHOR'S ORGANIZ ATION 03/09/2025 [facility] DATE CREATED AUTHOR AUTHOR'S ORGANIZ ATION 03/24/2025 [facility] dical Specialists EPIC REASON FOR VISIT [...] Active Josué Evangelista MD Attending Provider Active Nursery Helper Relationship Specialty Start Date End Date Britt Penaloza DO [address] [place] [address] PCP - General Family Medicine 11/10/23 Mani Carpenter MD [address] [place] [address] Referring Physician Neurology 11/10/23 Nursery Helper Relationship Specialty Start Date End Date Britt Penaloza DO [address] [place] [address] PCP - General Family Medicine 11/10/23 Mani Carpenter MD [address] [place] [address] Referring Physician Neurology 11/10/23 Nursery Helper Relationship Specialty Start Date End Date [facility] [address] [place], [place] PCP - General Family Medicine 05/03/21 Nursery Helper Relationship Specialty Start Date End Date Services, Counts Include [address] [facility] At [facility] [address] [place], [place] PCP - General Family Medicine 05/03/21 Nursery Helper Relationship Specialty Start Date End Date Services, Counts Include [address] At [facility] [address] [place] PCP - General Family Medicine 05/03/21 Nursery Helper Relationship Specialty Start Date End Date Britt Penaloza DO [address] [place], [place] [id number] PCP - General Family Medicine 11/10/23 Mani Carpenter MD [address] [place], [place] [id number] Referring Physician Neurology 11/10/23 Nursery Helper Relationship Specialty Start Date End Date Britt Penaloza DO [address] [place], [place] [id number] PCP - General Family Medicine 11/10/23 Mani Carpenter MD [address] [place], [place] [id number] Referring Physician Neurology 11/10/23 Nursery Helper Relationship Specialty Start Date End Date Britt Penaloza DO [address] [place] [address] PCP - General Family Medicine 11/10/23 Mani Carpenter MD [address] [place] [address] Referring Physician Neurology 11/10/23 Charmaine Castro PA [address] [place], [place] [id number] Physician Developer [employer] Neurology 02/01/25 Nursery Helper Relationship Specialty Start Date End Date Britt Penaloza DO [address] [place], [place] [id number] PCP - General Family Medicine 11/10/23 Mani Carpenter MD [address] [place] [address] Referring Physician Neurology 11/10/23 Charmaine Castro PA [address] [place] [address] Physician Developer [employer] Neurology 02/01/25 Goals (unrecognized section and content) [...] BE BASED ON THE PRIMARY CLINICAL RECORDS. [email or web address] [facility] provides no warranty or guarantee of the accuracy or completeness of information in this document.
[2025-04-18 10:17] VITALS: BP 126/81; PULSE 72; TEMP 36.7; O2SAT 97
[2025-04-18 10:59] VITALS: BP 129/72; BP 139/79; PULSE 69; PULSE 71; O2SAT 98
[2025-04-18] MEDS: LIDOCAINE HCL 2% 400 MG/20 ML MDV INJ (11:01)
[2025-04-18] MEDS: BUPIVACAINE HCL 0.25% PF 25 MG/10 ML VIAL 6 ML INJ (11:01)
--- NOTE | 2025-04-18 11:03 | W.PM.PROCNOT ---
Date of procedure: 04/18/25 Pre-op diagnosis: Pain due to cervical spondylosis without myelopathy Post-op diagnosis: same as pre-op Procedure: Procedure: Bilateral C4-5, 5-6 medial branch block Medications: Bupivacaine 0.25% 6cc The patient was seen and examined in the preoperative holding area.? The informed consent was obtained and placed on the chart.? The patient was brought to the medical procedure unit and placed in the prone position.? A timeout was completed verifying correct patient, procedure site, positioning, plan, and special equipment.? Using aseptic technique, the needle was placed at left C4.? Under direct fluoroscopic visualization, a Quincke tip needle was advanced to the midpoint of the waist of the articular pillar at the respective medial branch segment. The above-mentioned injectate was placed in a 1 mL aliquot proceeded by negative aspiration.? The needle was removed.? The procedure was completed at all left C5, 6. The same procedure, at the same levels, was then completed on the right side. Insertion site was covered.? Patient was taken to the postprocedural recovery area and monitored for an appropriate length of time before found suitable for discharge in the accompaniment of a responsible adult. Anesthesia: Local Surgeon: Richard Lezama Pathology: none sent Condition: stable Disposition: no change
== END 2025-04-18 11:06 | disposition home or self-care (01) ==
LOC: SURGOUT 10:00
PROVIDERS: PCP Family Medicine; Visit Provider Anesthesiology
DX: M54.2 Cervicalgia (principal); M47.812 Spondylosis without myelopathy or radiculopathy, cervical region
CPT/HCPCS: 64490; 64491; J0665

== ENCOUNTER 2025-04-20 14:16 | Outpatient (OUT) | payer MEDICAID, SELFPAY ==
--- OUTSIDE RECORDS SUMMARY | 2025-04-11 11:45 | XMS_ITS ---
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 Role Phone Kenisha Baxter Primary Care Provider Allergies Allergen (clinical drug ingredient) Drug/Non Drug Allergy documented on EMR Reaction Allergy Type Onset Date Status Bee Sting Difficulty breathing Allergy Active Substance with penicillin structure and antibacterial mechanism of action (substance) Penicillins Unknown Drug Allergy Active REASON FOR VISIT Wellness Medications Medication SIG (Take, Route, Frequency, Duration) Notes Start Date End Date Status Famotidine 20 MG 1 tablet at bedtime as needed Orally Once a day for 90 days Active Omeprazole 40 MG TAKE 1 CAPSULE BY [facility] EVERY DAY 30 MINUTES BEFORE MORNING MEAL FOR 90 DAYS for 90 Active Rosuvastatin Calcium 5 MG 1 tablet Orall y Once a day for 90 days 08/29/2022 Active EpiPen 2-Mike 0.3 MG/0.3ML as directed In jection once, may repeat dose once after 5-15 minutes for 90 days 02/27/2023 Active Gabapentin 100 MG TAKE 1 CAPSULE BY MO [place] TWICE A DAY FOR 90 DAYS for 30 Active Latanoprost 0.005 % place 1 drop into david th eyes every evening as directed Ophthalmic for 25 Days Active Social History Sex Assigned At : Social History Observation Description Sex Assigned At Male Vital Signs Temperature 97.7 degrees Fahrenheit 04/11/20 25 Weight 204 lbs 04/11/2025 Height 67.00 in 04/11/2025 BMI 31.95 kg/m2 04/11/2025 Blood pressure systolic 120 mm Hg 04/11/20 25 Blood pressure diastolic 76 mm Hg 025 Heart Rate 81 /min 04/11/2025 Respiratory Rate 18 /min 04/11/2025 Oximetry 96 % 04/11/2025 Weight-kg 92.53 kg 04/11/2025 Height-cm 170.18 cm 04/11/2025 Noel Jones 025 03:52:20 PM EDT > Encounters Encounter Location Date Provider Diagnosis Main [address] [place] [id number] 04/11/2025 Kenisha Baxter Well adult exam Z00. 00 ; Screening for cardiovascular condition Z13.6 ; Screening for prostate cancer Z12.5 ; Bee sting allergy Z91.030 ; Body mass index [BMI] 31.0-31.9, adult Z68.31 and Obesity, class 1 E66.811 Assessments Encounter Date Diagnosis (ICD Code) Assessment Notes Treatment Notes Treatment Clinical Notes Section Notes 04/11/2025 Well adult exam (ICD-10 - Z00.00) Patient presents to office today for their Annual Wellness Visit. Education was provided on healthy nutrition, including a diet rich in fruits and vegetables, minimizing simple carbohydrates, salt, and saturated fats. Encouraged regular cardiovascular exercise such as walking at least 30 minutes daily, 5 times per week. Emphasized preventive health measures and educated pt on fall prevention and community-based lifestyle interventions to help reduce health risks and promote healthy living. 04/11/2025 Screening for cardiovascular condition (ICD-10 - Z13.6) 04/11/2025 Screening for prostate cancer (ICD-10 - Z12.5) 04/11/2025 Bee sting allergy (ICD-10 - Z91.030) Needed refill 04/11/2025 Body mass index [BMI] 31.0-31.9, adult (ICD-10 - Z68.31) Body Mass Index: Care Instructions material was published 04/11/2025 Obesity, class 1 (ICD-10 - E66.811) Plan Of Treatment Medication Medication Name Sig Start Date Stop Date Notes EpiPen 2-Mike 0.3 MG/0.3ML as directed In jection once, may repeat dose once after 5-15 minutes for 90 days 02/27/2023 Treatment Notes Assessment Notes Well adult exam Patient presents to office today for their Annual Wellness Visit. Education was provided on healthy nutrition, including a diet rich in fruits and vegetables, minimizing simple carbohydrates, salt, and saturated fats. Encouraged regular cardiovascular exercise such as walking at least 30 minutes daily, 5 times per week. Emphasized preventive health measures and educated pt on fall prevention and community-based lifestyle interventions to help reduce health risks and promote healthy living. Bee sting allergy Needed refill Body mass index [BMI] 31.0-31.9, adult B russell Mass Index: Care Instructions material was published Pending Test Test Name Order Date LIPID PANEL WITH REFLEX TO DIRECT LDL COMPREHENSIVE METABOLIC PANEL WITH GFR 0 04/11/2025 PSA, TOTAL, 3RD GENERATION ([facility] SCREEN) 0 04/11/2025 Next Appt Details Follow Up: 3 Months,racheln, [place] son: F/u HLD & GERD Provider Name:Kenisha chung, 07/18/2025 02:00:00 PM, [address] [place] [address], [phone], Progress Notes * Homer EASTMANDOB:[birth year] (59 yo M)Acc No.[id number]:04/11/2025 Progress Notes Patient: Daniel HAYNESLUISHomer Provider: MADDISON Munoz :1965 A ge:59 Y S ex:Male Date:04/11/2025 Address:[address] [place], [place] [id number] Check In:03:39 PM EST Subjective: * Chief Complaints: * W ellness * HPI: A nnual Visit: Colonoscopy 2020. Annual Exam S creening recommendations reviewed and updated in Preventive medicine Y es Diet f ruit and vegetable, limited dairy, High protein diet, no caffiene. Water Intake 8 bottles of water per day. Exercise i nfrequently. Sleep 8 -9 Hours per night. Patient care team S eeing Neurology Seeing Pain Management. Metabolic Screening L ipid profile last done 0 -2023 G lucose screening last done 0 -2023 * ROS: G eneral / Constitutional: Patient denies c hange in appetite, fever, weakness. ? R espiratory: Patient denies c hronic cough, shortness of breath, sputum production. C ardiovascular: Patient denies c hest pain, chest pain with exertion, irregular heartbeat. G astrointestinal: Patient denies a bdominal pain, diarrhea, rectal bleeding.? * Medical History: * Surgical History: L azy eye Left, (R) elbow surgery 7848-08-75Qjzjrm tunnel release on the right wrist 1272-03-07Ryis surgery for pinched nerve 10/30Right elbow nerve surgery 01/30 * Hospitalization/Major Diagno stic Procedure: D enies Past Hospitalization * Family History: F ather: alive, kidney disease. M other: alive, diagnosed with Heart Disease. P aternal Grand Father: . P aternal Grand Mother: . M aternal Grand Father: , diagnosed with Hypertension, Heart Disease, Cancer. M aternal Grand Mother: . B rother: unknown. S ister: unknown. 2 brother(s) , 2 sister(s) . . * Social History: S exual History: F amily Planning A re you or your partner planning on becoming in the next year if not already ? C hoose not to disclose * Medications: T akingLatanoprost 0.005 % Solution place 1 drop into both eyes every evening as directed Ophthalmic EpiPen 2-Mike 0.3 MG/0.3ML Solution Auto-injector as directed Injection once, may repeat dose once after 5-15 minutes Rosuvastatin Calcium 5 MG Tablet 1 tablet Orally Once a day Gabapentin 100 MG Capsule TAKE 1 CAPSULE BY MOUTH TWICE A DAY FOR 90 DAYS Famotidine 20 MG Tablet 1 tablet at bedtime as needed Orally Once a day Omeprazole 40 MG Capsule Delayed Release TAKE 1 CAPSULE BY MOUTH EVERY DAY 30 MINUTES BEFORE MORNING MEAL FOR 90 DAYS Medication List reviewed and reconciled with the patientTaking Latanoprost 0.005 % Solution place 1 drop into both eyes every evening as directed Ophthalmic Taking EpiPen 2-Mike 0.3 MG/0.3ML Solution Auto-injector as directed Injection once, may repeat dose once after 5-15 minutes Taking Rosuvastatin Calcium 5 MG Tablet 1 tablet Orally Once a day Taking Gabapentin 100 MG Capsule TAKE 1 CAPSULE BY MOUTH TWICE A DAY FOR 90 DAYS Taking Famotidine 20 MG Tablet 1 tablet at bedtime as needed Orally Once a day Taking Omeprazole 40 MG Capsule Delayed Release TAKE 1 CAPSULE BY MOUTH EVERY DAY 30 MINUTES BEFORE MORNING MEAL FOR 90 DAYS Medication List reviewed and reconciled with the patient * Allergies: B ee Sting: Difficulty breathing - AllergyPenicillins: Allergyno[Allergies Verified] Objective: * Vitals: T emp:97.7F, Wt:204lbs, Ht: 67.00 in, BMI:31.95Index, BP:120/76mm Hg, HR:81/min, RR:18/min, Pain scale:71-10, Oxygen sat %:96%, Wt-k.53 kg, Ht-cm: 170.18 cm, Body Surface Area: 2.09. Noel Jones 04/11/2025 03:52:20 PM EDT >. * Examination: C QM Exceptions: Currently taking Aspirin: A spirin Use: N o G eneral Examination: General appearance: a lert, pleasant, well-nourished and in no acute distress. Ears: a uditory canal clear, tympanic membrane intact and clear. Nose: n benito patent, no lesions. Throat: c lear. Heart: r egular rate and rhythm without murmurs, gallops, clicks or rubs. Lungs: c lear to auscultation bilaterally, with good air movement and no rales, rhonchi or wheezes. Abdomen: s oft with good bowel sounds, nontender, and no masses or hepatosplenomegaly. Musculoskeletal: F ROM, normal strength. Neurologic: c ognitive exam grossly normal. Psych: a lert and oriented x 3. Assessment: * Assessment: 1. W ell adult exam - Z00.00 (Primary) 2 . S creening for cardiovascular condition - Z13.6 3 . S creening for prostate cancer - Z12.5 4 .?Bee sting allergy - Z91.030 5 . B russell mass index [BMI] 31.0-31.9, adult - Z68.31 6 . O besity, class 1 - E66.811 Plan: * Treatment: 2. S creening for cardiovascular condition L AB: LIPID PANEL WITH REFLEX TO DIRECT LDL L AB: COMPREHENSIVE METABOLIC PANEL WITH GFR 3. S creening for prostate cancer L AB: PSA, TOTAL, 3RD GENERATION ([facility] SCREEN) 4. B ee sting allergy Refill EpiPen 2-Mike Solution Auto-injector, 0.3 MG/0.3ML, as directed, Injection, once, may repeat dose once after 5-15 minutes, 90 days, 1, Refills 1. Notes: Needed refill 5. B russell mass index [BMI] 31.0-31.9, adult Notes: Body Mass Index: Care Instructions material was published * Procedure Codes: 3 078F HTN DIAST BP < [id number] HTN SYST BP < 130 * Preventive Medicine: Counseling: C ommunication to patient: Counseling for nutrition provided Y es Counseling for physical activity provided Y es * Follow Up: 3 Months,prn (Reason: F/u HLD & GERD) Care Plan: * Problems: * Billing Information: * Visit Code: 30934 [facility] Compre Prev Med Ree/M Est Pt 40-64. * Procedure Codes: 3078F HTN DIAST BP < 80. 3074F HTN SYST BP < 130. * Sign off status: Completed true * Provider: MADDISON Munoz Date: 04/11/2025 Generated for Prakash skaggs/Joann/eTransmitting on: 04/20/2025 02:18 PM EDT History and Physical Notes * HPI (History of Present Illness) Category Sub-Category Detail Notes Category Not es Annual Visit Patient care team Seeing Neurology Seeing Pain Management Annual Exam Screening recommenda tions reviewed and updated in Preventive medicine: Yes Metabolic Screening Lipid profile last done: 2023 Glucose screening last done: Diet fruit and vegetable, limited dairy, High protein diet, no caffiene Exercise infrequently Sleep 8-9 Hours per night Water Intake 8 bottles of water p er day Examination Category Sub-Category Detail Notes Category Not es General Examination General appearance: alert, p leasant, well-nourished and in no acute distress Ears: auditory canal clear , tympanic membrane intact and clear Nose: nares patent, no les ions Throat: clear Heart: regular rate and rhy thm without murmurs, gallops, clicks or rubs Lungs: clear to auscultatio n bilaterally, with good air movement and no rales, rhonchi or wheezes Abdomen: soft with good bowel sounds, nontender, and no masses or hepatosplenomegaly Neurologic: cognitive exam gross ly normal Musculoskeletal: FROM, normal strengt h Psych: alert and oriented x 3 CQM Exceptions Currently taking Aspirin: Aspirin Use:: No
--- OUTSIDE RECORDS SUMMARY | 2025-04-20 14:18 | XMS_ITS | Encounter Summary ---
Author Organization [facility] Address [address] [facility] [place] [address] Care Team Providers Care Underwriter Mortgage Loan Name Role Phone NicolaBritt sepulveda Primary Care Provider [phone] Jonn Singer MD Unavailable Unavailable Charmaine Castro Unavailable Reason for Visit * Reason Comments Med Refill Encounter Details Date Type Department Care Team (Late st Contact Info) Description 04/07/2025 Refill SAMANTHA EARL [address] [place] [id number] Charmaine Castro PA [address] [place] [address] Radiculopathy, cervical region Social History [...] as of this encounter Plan of Treatment Not on file documented as of this encounter Visit Diagnoses Diagnosis Radiculopathy, cervical region Brachial neuritis or radiculitis nos documented in this encounter Care Teams Underwriter Mortgage Loan Relationship Specialty Start Date End Date GildayamilaBreeunruly [address] [place] [address] PCP - General Family Medicine 11/10/23 Jonn Singer MD [address] [place] [address] Referring Physician Neurology 11/10/23 Charmaine Castro PA [address] [place] [address] Physician Sales Manager Prearranged Funerals Neurology 02/01/25 documented as of this encounter
--- OUTSIDE RECORDS SUMMARY | 2025-04-20 14:18 | XMS_ITS | Clinical Summary ---
Author Organization [facility] s [facility] Address [id number] [place] [address] Care Team Providers Care Manager Nicu Name Role Phone Services, [facility] Primary Care Provider Allergies Active [...] Devices Not on file Insurance [address] [place] [address] [facility]LY [facility] MEDICAID Care Teams Manager Nicu Relationship Specialty Start Date End Date Services, [facility] [address] [place], [place] PCP - General Family Medicine 05/03/21
--- OUTSIDE RECORDS SUMMARY | 2025-04-20 14:18 | XMS_ITS | Clinical Summary ---
Author Organization [facility] Address [address] [place] [address] Care Team Providers Care Leaded Glass Installer Name Role Phone NicolaBritt sepulveda DO Primary Care Provider [phone] Allergies Active Allergy Reactions Criticality Noted Date [...] 2012 FIT/FOBT: Average risk 2012 Fecal-DNA (Cologuard): [place] ge risk 2012 Sigmoidoscopy/CT colonography 2012 Shingles [...] age to complete this topic Insurance [facility] MEDICAID Care Teams Leaded Glass Installer Relationship Specialty Start Date End Date Britt Goodman DO [address] [place] [address] PCP - General Family Medicine 08/22/23
--- OUTSIDE RECORDS SUMMARY | 2025-04-20 14:18 | XMS_ITS | Clinical Summary ---
Author Organization [facility] Address [address] [place] [address] Care Team Providers Care Marble Cutter Operator Name Role Phone GildaBritt driscoll Primary Care Provider [phone] Jonn Singer MD Unavailable Unavailable Charmaine Castro [...] for dizziness. Active cyclobenzaprine (Flexeril) 5 MG tabletIndications :Radiculopathy, cervical region TAKE 2 TABLETS BY MOUTH AT BEDTIME 30 tablet 1 5 Active diclofenac (Voltaren) 25 MG EC tabletIndications :Lumbosacral radiculopathy Take 1 tablet (25 mg) by mouth in the morning and 1 tablet (25 mg) before bedtime. Do not crush, chew, or split. 60 tablet 2 0504/22/20 25 Active Active Problems Problem Noted Date Diagnosed [...] insomnia. He does work midnights. MOCA 01/28/2023: (MOCA 06/19/2022: ). Memory labwork 06/2022 unremarkable. [...] 04/07/2025 Refill SAMANTHA ELLIOTT [address] [place] [phone] Charmaine Castro PA Radiculopathy, cervical region 03/23/2025 1:00 PM EDT Office Visit SAMANTHA ELLIOTT [address] [place] [phone] Charmaine Castro PA Lumbosacral radiculopathy (Primary Dx); Ulnar neuropathy at elbow of right upper extremity; Balance problems; Memory change; GIRMA (obstructive sleep apnea) 03/23/2025 [facility] [address] [place] [phone] Charmaine Castro PA 03/20/2025 Travel 03/16/2025 Refill SAMANTHA EARL [address] [place] [phone] Charmaine Castro PA Radiculopathy, cervical region 02/01/2025 12:40 PM EDT Office Visit SAMANTHA ELLIOTT [address] [place] [phone] Charmaine Castro PA Ulnar neuropathy at elbow of right upper extremity (Primary Dx); Carpal tunnel syndrome of right wrist; GIRMA (obstructive sleep apnea); Balance problems 02/01/2025 [facility] [address] [place] [phone] Charmaine Castro PA Radiculopathy, cervical region 02/01/2025 Bamboo flowsheet [facility] [address] [place] [phone] Charmaine Castro PA 01/25/2025 11:00 AM EDT Procedure Visit [place] [id number] [place] [phone] Jonn Singer MD Carpal tunnel syndrome of right wrist (Primary Dx); Radiculopathy, cervical region; Ulnar neuropathy at elbow of right upper extremity 01/25/2025 Bamboo flowsheet [facility] [address] [phone] Jonn Singer MD from Last 3 Months [...] 03/23/2025 1:13 PM EDT Plan of Treatment Health Maintenance Due Date [...] Re sult from Last 3 Months Insurance [facility] MEDICAID [place] Care Teams Marble Cutter Operator Relationship Specialty Start Date End Date Britt Goodman DO [address] [facility] [facility], [place] [phone] PCP - General Family Medicine 11/10/23 Jonn Singer MD [address] [place] [address] Referring Physician Neurology 11/10/23 Charmaine Castro PA [address] [place] [address] Physician Oracle Technical Architect Neurology 02/01/25
--- NOTE | 2025-04-20 14:48 | P.CN_ITS ---
Consult Note: HPI Data of Consult Patient: known to practice within the last 3 years Requesting Physician: Wilma Bhardwaj NP Primary Care Provider: Britt Goodman Consult Narrative Reason for consult: f/u Narrative: Homer Eastman a pleasant 59 year old male presents for evaluation of chronic neck and low back pain, has failed to benefit from >6 weeks of PT/HEP, heat, ice, tylenol, nsaids. hx of C3-4 fusion, recently evaluated by NS who did not recommend additional intervention per pt. recent cervical mri shows multilevel stenosis and degenerative changes. EMG of BUE consistent with right ulnar neuropathy and CTS, no evidence of cervical radiculopathy. Pain today aching 4/10 increasing to 10/10 by end of day. pain increased with standing, walking, pushing, pulling, bending, activity, lifting. Pain improved with heat. utilzes flexeril PRN, gabapentin 200mg BID, and mobic 7.5mg BID PRN with benefit without side effects. recent bilateral C4-5 C5-6 MBB with mild relief while anesthetized. cc:: CC: Wilma Bhardwaj NP Review of Systems ROS Status of ROS 10 or more systems reviewed and unremark able except as noted in history and below [facility] Medical History (Updated 04/20/25 @ 14:55 by Wilma Bhardwaj NP) Glaucoma ?H40.9 - Unspecified glaucoma (ICD-10) Obesity ?E66.9 - Obesity, unspecified (ICD-10) Smoker ?F17.200 - Nicotine dependence, unspecified, uncomplicated (ICD-10) Low back pain ?M54.50 - Low back pain, unspecified (ICD-10) Neck pain ?M54.2 - Cervicalgia (ICD-10) Osteoarthritis ?M19.90 - Unspecified osteoarthritis, unspecified site (ICD-10) Bipolar depression ?F31.9 - Bipolar disorder, unspecified (ICD-10) Carpal tunnel syndrome ?G56.00 - Carpal tunnel syndrome, unspecified upper limb (ICD-10) Chronic GERD ?K21.9 - Gastro-esophageal reflux disease without esophagitis (ICD-10) Acid reflux ?K21.9 - Gastro-esophageal reflux disease without esophagitis (ICD-10) Sleep apnea ?G47.30 - Sleep apnea, unspecified (ICD-10) High cholesterol ?E78.00 - Pure hypercholesterolemia, unspecified (ICD-10) Surgical History H/O neck surgery ?Z98.890 - Other specified postprocedural states (ICD-10) H/O elbow surgery ?Z98.890 - Other specified postprocedural states (ICD-10) H/O carpal tunnel repair ?Z98.890 - Other specified postprocedural states (ICD-10) Hx of tonsillectomy ?Z90.89 - Acquired absence of other organs (ICD-10) H/O eye surgery ?Z98.890 - Other specified postprocedural states (ICD-10) Meds Home Medications and Allergies Home Medications ?Medication ?Instructions ?Recorded ?Confirmed ?Type epinephrine 0.3 mg/0.3 mL 0.3 mg IM DAILY PRN anaphyla xis 08/30/23 04/18/25 History injection, auto-injector latanoprost 0.005 % eye drops 1 drp ophthalmic (eye) . QHS 08/30/23 04/18/25 History omeprazole 40 mg capsule,delayed 40 mg PO QAM 08/30/23 04/18/25 History release rosuvastatin 5 mg tablet 5 mg PO DAILY 08/30/2304/18 History cyclobenzaprine 5 mg tablet 5 mg PO DAILY 12/08/2308/04 History famotidine 20 mg tablet mg 04/19/24 History gabapentin 100 mg capsule See Rx Instructions .Route 0 04/07/25 04/18/25 Rx .COMPLEX #120 caps Allergies Allergy/AdvReac Type Severity Reaction Status Date / Time bee venom protein (honey bee) Allergy Severe UNKNOWN Verified 04/18/25 10:19 Penicillins Allergy Severe LOSS OF Verified 04/18/25 10:19 CONCIOUSNESS Exam Constitutional Documenting provider has reviewed patient's vital signs: yes Common normals: no apparent distress, oriented x3, healthy appearing, alert and well nourished General appearance: cooperative HENSC Common normals: normocephalic, hearing grossly normal bilaterally and moist oral mucous membranes Head and scalp: normocephalic Eye Common normals: PERRL Pupil: PERRL Neck & C-Spine Common normals: full ROM General: normal visual inspection Cervical spine: cervical ROM abnormal, pain with cervical ROM and cervical spine tenderness C2, C3, C5 and C6 Other: positive spurlings sensation intact BUE strength 5/5 in BUE positive facet loading left>right Chest Common normals: inspection of chest normal Respiratory Common normals: normal respiratory effort, no retractions and no use of accessory muscles Neuro Common normals: oriented x3 Sensorium/orientation: alert Psych Common normals: mental status grossly normal, thought process normal, cooperative, affect normal, speech normal and activity/motor behavior normal Speech: normal speech Thought process: normal thought process Results Additional Findings Additional findings: If on a controlled substance or opioids, I have checked an [place] report on this patient and there are no aberrancies noted in the prescribing history.??If on a controlled substance or opioid a drug screen was completed and reviewed within the last year, and if there has not been a drug screen completed we ordered one today to monitor higher risk, state monitored pain medication use. As part of providing excellent, safe, comprehensive care, the following was completed at our patient's visit: 1. A medication reconciliation and review to ensure accurate knowledge of current/active medications, including asking our patients to inform us about any qzcv-aaz-lahilhb medications or herbal remedies/nutritional supplements/alternative remedies. 2. A review to specifically ensure our patients have had annual screening for screening for depression, screening for tobacco use, and screening for unhealthy alcohol use. For concerning screenings had a discussion with the patient, provided patient education, and recommended follow-up with primary care provider when appropriate. If patient noted with a risk of falling, they received education on strength, gait, and balance training to prevent future risk of fal ling. Portions of this note may have been carried over from the previous visit and updated as appropriate. Please note this office utilizes paper charting in addition to the electronic medical record. A list of current medications, vitals, and PMH is available there as the clinical staff outside of myself do not have access to [employer] charting during the clinic day operations. As part of providing quality comprehensive care the current medications, vitals, and PMH were reviewed in the paper chart. Assessment and Plan Assessment and Plan (1) Cervical spinal stenosis: Assessment and Plan: The patient has had over 3 months of moderate to severe neck pain with functional impairment and inadequate response to conservative care including NSAIDS (unless there are contraindication such as concurrent blood thinners), multiple oral or topical pain medications, and home exercise program/physical therapy.? Patient has completed >6 weeks of guided home exercise program and/or formal physical therapy program without relief of their symptoms.? The Oswestry Disability Index was completed, and the patient scored a 26%.? The patient noted the following:?? moderate to severe pain impacting ADLs, sleep, sitting, standing, social life, travel We discussed the risks and benefits of the procedure with the patient, and we are NOT planning on using sedation as outlined in the guidelines from Medicare unless there is a documented reason that sedation would be strongly recommended.?? ?The procedure will be completed with fluoroscopic guidance.? (2) Cervical spondylosis: (3) Failed neck syndrome: (4) Cervical radiculopathy: (5) Sacroiliitis: (6) Myofascial pain: (7) Sacroiliac joint dysfunction of both sides: (8) Lumbar spondylosis: (9) Lumbar stenosis with neurogenic claudication: Plan bilateral C4-5 TFESI for cervical stenosis continue current medications continue HEP as tolerated f/u 2 weeks after injection
== END 2025-04-20 14:17 | disposition home or self-care (01) ==
LOC: PM 14:16
PROVIDERS: PCP Family Medicine; Visit Provider Nurse Practitioner
DX: M48.02 Spinal stenosis, cervical region (principal); M47.812 Spondylosis without myelopathy or radiculopathy, cervical region; M96.1 Postlaminectomy syndrome, not elsewhere classified; M54.12 Radiculopathy, cervical region; M46.1 Sacroiliitis, not elsewhere classified; M79.18 Myalgia, other site; M53.3 Sacrococcygeal disorders, not elsewhere classified; M47.816 Spondylosis without myelopathy or radiculopathy, lumbar region; M48.062 Spinal stenosis, lumbar region with neurogenic claudication
CPT/HCPCS: G0463

== ENCOUNTER 2025-05-02 07:13 | Day surgery (SDC) | payer MEDICAID, SELFPAY ==
--- OUTSIDE RECORDS SUMMARY | 2025-05-02 07:15 | XMS_ITS | CCD ---
Author Organization [facility] Care Team Providers Care Manager Search Engine Name Role Phone Harvey Holt Unavailable NON [...] Evangelista Unavailable [facility] Primary Care Unava ilable MITCHELL TRAYLOR Admitting Unavailable MERCEDES ENRIQUEZ Consulting Unavailable MITCHELL TRAYLOR Attending Unavailable MANI HARGROVE Consulting Unavailable MITCHELL TRAYLOR Consulting Unavailable MISC, DR GARCIAS Attending Unavailable MISC, DR GARCIAS Consulting Unavailable [facility] Primary Care Unava ilable ARDHA, DR GARCIAS Admitting Unavailable RUMSCHLAG, BRITT Primary Care Unavailable YVONNE CAMARENA Referring Unavailable YVONNE CAMARENA Referring Unavailable RUMSCHLAG, BRITT Primary Care Unavailable CANDIS RENTERIA Admitting Unavailable CANDIS RENTERIA Attending Unavailable BRITT PENALOZA Primary Care Unavailable Britt Penaloza DO Primary Care Provider Mani Carpenter MD Unavailable [facility] Primary Care Provider Lise RAWLS, Andrius Vytautlaurel [...] Facility (7 sources) penicillAMINE Drug Allergy Unknown [facility] Other (7 sources) Bee Sting Drug allergy Unknown [facility] Other (17 sources) Penicillins; Translations: [Penicillins] Allergy to substance 05-07-20 17 Unknown Reaction [facility] (5 sources) venom-honey bee; Translations: [venom-honey bee] Allergy to substance 10-02-20 21 Swelling [facility] (1 source) bee venom Drug allergy (disorder) [facility] (1 source) Penicillin Drug Allergy [facility] (3 sources) Bee Venom Protein [...] Start: 12-27-2024 take 2 tablets by mo [facility] at bedtime cyclobenzaprine (Flexeril) 5 MG [...] post void residualon 12-14-2024 Volume 87 mL [facility] Prostate specific Ag [Mass/V ol]on 12-09-2023 [facility] Prostatic specific antigen, diagnosticon 12-09-2023 Prostate specific Ag [Mass/Vol] 1.02 ng/mL 0.00 - 4.00 ng/mL [facility] Comment on above: The method used for this test is Roxy Federico DXI chemiluminescent immunoassay. Values obtained by different assay methods cannot be used interchangeably. H. pylori Antigenon 10-16-20 H. pylori Antigen Specimen Description .FECES Direct Exam NEGATIVE Report Status FINAL 10/16/2023 Normal [facility] Comment on above: Performed By: #### F HPY #### [facility] [address] [place], [place] [id number] E Commerce Strategist: Guy Ramey MD [facility] [address] [place] [address] E Commerce Strategist: Justus Darby MD Surgical Pathology Reporton 10-15-2023 Surgical Pathology Report (NOTE) Path Number: [id number] -- Diagnosis -- A. GE junction, endoscopic [...] for each. Microscopic examination performed. Processing Lab: [address] [id number] Interpretation Performed at [address] [id number] SURGICAL PATHOLOGY CONSULTATION Patient Name: ROSA EASTMAN [facility] Rec: [id number] [facility] PATHOLOGISTS [facility] ANATOMIC PATHOLOGY [address] [place] [address]. [place], [place] [address] Normal [facility] CBC with Diffon 10-14-2023 Abs. Basophil 0.17 k/uL Normal 0.00-0.20 [facility] Comment on above: Performed By: #### C DP #### [facility] [address] [place], [place] [id number] E Commerce Strategist: Justus Darby MD Abs.Imm.Granulocyte 0.04 k/uL Normal 0.00-0.30 [facility] Comment on above: Performed By: #### C DP #### [address] [place], [place] [id number] E Commerce Strategist: Justus Darby MD Abs.Neutrophil (Seg) 5.08 k/uL Normal 1.50-8.10 [facility] Comment on above: Performed By: #### C DP #### [address] [place], [place] [id number] E Commerce Strategist: Justus Darby MD Basophils/100 WBC (Bld) 2 % Normal 0-2 [facility] Comment on above: Performed By: #### C DP #### [address] [place] [id number] E Commerce Strategist: Justus Darby MD Eosinophils (Bld) [#/Vol] 0.43 10*3/uL Normal 0.00-0.44 [facility] Comment on above: Performed By: #### C DP #### [address] [place] [address] E Commerce Strategist: Justus Darby MD Eosinophils/100 WBC (Bld) 4 % Normal 1-4 [facility] Comment on above: Performed By: #### C DP #### [address] [place] [facility] E Commerce Strategist: Justus Darby MD Erythrocyte distribution width (RBC) [Ratio] 12.3 % Normal 11.8-14.4 [facility] Comment on above: Performed By: #### C DP #### [facility] [address] [place], [facility] E Commerce Strategist: Justus Darby MD Hematocrit (Bld) [Volume fraction] 44.4 % Normal 40.7-50.3 [facility] Comment on above: Performed By: #### C DP #### [address] [place], [facility] E Commerce Strategist: Justus Darby MD Hemoglobin (Bld) [Mass/Vol] 14.6 g/dL Normal 13.0-17.0 [facility] Comment on above: Performed By: #### C DP #### [facility] [address] [place] [address] Dr. [place], [facility] E Commerce Strategist: Justus Darby MD Immature granulocytes/100 WBC (Bld) 0 % Normal 0 [facility] Comment on above: Performed By: #### C DP #### [facility] [address] [place] [address] Dr. [place], [facility] E Commerce Strategist: Justus Darby MD Lymphocytes (Bld) [#/Vol] 3.86 10*3/uL High 1.10-3.70 [facility] Comment on above: Performed By: #### C DP #### [facility] [address] [place], [facility] E Commerce Strategist: Justus Darby MD Lymphocytes/100 WBC (Bld) 36 % Normal 24-43 [facility] Comment on above: Performed By: #### C DP #### [facility] [address] [place] [address] Dr. [place], [facility] E Commerce Strategist: Justus Darby MD MCH (RBC) [Entitic mass] 30.9 pg Normal 25.2-33.5 [facility] Comment on above: Performed By: #### C DP #### [facility] [address] [place] [address] Dr. [place], [place] [address] E Commerce Strategist: Justus Darby MD MCHC (RBC) [Mass/Vol] 32.9 g/dL Normal 28.4-34.8 [facility] Comment on above: Performed By: #### C DP #### [address] [place], [facility] E Commerce Strategist: Justus Darby MD MCV (RBC) [Entitic vol] 93.9 fL Normal 82.6-102.9 [facility] Comment on above: Performed By: #### C DP #### [address] [place], [facility] E Commerce Strategist: Justus Darby MD Monocytes (Bld) [#/Vol] 1.05 10*3/uL Normal 0.10-1.20 [facility] Comment on above: Performed By: #### C DP #### [address] [place], [facility] E Commerce Strategist: Justus Darby MD Monocytes/100 WBC (Bld) 10 % Normal 3-12 [facility] Comment on above: Performed By: #### C DP #### [facility] [address] [place] [address] Dr. [place], [place] [address] E Commerce Strategist: Justus Darby MD Neutrophil (Seg) 48 % Normal 36-65 [facility] Comment on above: Performed By: #### C DP #### [facility] [address] [place], [facility] E Commerce Strategist: Justus Darby MD NRBC Automated 0.0 per 100 WBC Normal 0.0 [facility] Comment on above: Performed By: #### C DP #### [facility] [address] [place] [facility] E Commerce Strategist: Justus Darby MD Platelet mean volume (Bld) [Entitic vol] 9.6 fL Normal 8.1-13.5 [facility] Comment on above: Performed By: #### C DP #### [facility] [address] [place] [address] E Commerce Strategist: Justus Darby MD Platelets (Bld) [#/Vol] 297 10*3/uL Normal 138-453 [facility] Comment on above: Performed By: #### C DP #### [facility] [address] [place], [place] [id number] E Commerce Strategist: Justus Darby MD RBC (Bld) [#/Vol] 4.73 10*6/uL Normal 4.21-5.77 [facility] Comment on above: Performed By: #### C DP #### [facility] [address] [place], [place] [id number] E Commerce Strategist: Justus Darby MD WBC (Bld) [#/Vol] 10.6 10*3/uL Normal 3.5-11.3 [facility] Comment on above: Performed By: #### C DP #### [facility] [address] [place], [place] [id number] E Commerce Strategist: Justus Darby MD Basic Metabolic Panelon 03-0 Anion gap [Moles/Vol] 9.8 mmol/L Normal 6.0-15.0 [facility] Comment on above: Performed By: #### C BC, BMP #### [facility] [address] [place] [address] [facility] Calcium [Mass/Vol] 9.1 mg/dL Normal 8.2-10.2 [facility] Comment on above: Result Comment: PERF ORMED BY: [facility] [address] [place] [address] PATHOLOGIST [employer] GENEVIEVE CANNON M.D. Performed By: #### C BC, BMP #### [facility] [address] Chloride [Moles/Vol] 104 mmol/L Normal 95-114 [facility] Comment on above: Performed By: #### C BC, BMP #### [facility] [address] CO2 [Moles/Vol] 25.9 mmol/L Normal 22.0-30.0 [facility] Comment on above: Performed By: #### C BC, BMP #### [address] Creatinine [Mass/Vol] 0.98 mg/dL Normal 0.64-1.27 [facility] Comment on above: Performed By: #### C BC, BMP #### [address] Estimated GFR ( Camila > 60 Normal [facility] Comment on above: Result Comment: GFR estimated reference range: According to KDOQI guidelines, <60 ml/min/1.73m2 is sufficient to diagnose a patient with chronic kidney disease. Performed By: #### C BC, BMP #### [place] [address] [place] Estimated GFR (Non- Am > 60 [facility] Comment on above: Performed By: #### C BC, BMP #### [place] [address] [place] Glucose [Mass/Vol] 82 mg/dL Normal 70-100 [facility] Comment on above: Result Comment: [place] Glucose Reference Range is dependent on time and content of last meal. Glucose of more than 200 mg/dL in a nonstressed, ambulatory subject supports the diagnosis of Diabetes Mellitus. ADA recommended reference range Performed By: #### C BC, BMP #### [place] [address] [place] Potassium [Moles/Vol] 3.7 mmol/L Normal 3.5-5.1 [facility] Comment on above: Performed By: #### C BC, BMP #### [place] [address] [place] Sodium [Moles/Vol] 136 mmol/L Normal 136-146 [facility] Comment on above: Performed By: #### C MICHELLE, BMP #### [facility] [address] Urea nitrogen [Mass/Vol] 11 mg/dL Normal 9-23 [facility] Comment on above: Performed By: #### C MICHELLE, BMP #### [facility] [address] Basophils Auto (Bld) [#/Vol] Ordered By: Josué Evangelista on 01-13-2023 Basophils (Bld) [#/Vol] 0.1 10*3/uL 0.0-0.2 [facility] Basophils/100 WBC Auto (Bld) Ordered By: Josué Evangelista on 01-13-2023 Basophils/100 WBC (Bld) 1.2 % . F [facility] Calcium [Mass/volume] in Ser um or PlasmaOrdered By: Jousé Evangelista on 01-13-2023 Calcium [Mass/Vol] 9.1 mg/dL 8.2-10.2 [facility] Carbon dioxide, total [Moles /volume] in Serum or PlasmaOrdered By: Josué Evangelista on 01-13-2023 CO2 [Moles/Vol] 25.9 mmol/L 22.0-30.0 [facility] Chloride [Moles/volume] in S lai or PlasmaOrdered By: Josué Evangelista on 01-13-2023 Chloride [Moles/Vol] 104 mmol/L 95-114 [facility] Complete Blood Count Auto Di ffon 01-13-2023 Basophils (Bld) [#/Vol] 0.1 10*3/uL Normal 0.0-0.2 [facility] Comment on above: Result Comment: PERF ORMED BY: [place] [address] PATHOLOGIST [employer] GENEVIEVE CANNON M.D. Performed By: #### C MICHELLE, BMP #### [facility] [address] Basophils/100 WBC (Bld) 1.2 % Normal . F [facility] Comment on above: Performed By: #### C BC, BMP #### [facility] [address] [place] [address] [place] Eosinophils (Bld) [#/Vol] 0.5 10*3/uL High 0.0-0.45 [facility] Comment on above: Performed By: #### C BC, BMP #### [facility] [address] [place] [address] [place] Eosinophils/100 WBC (Bld) 4.7 % Normal . [facility] Comment on above: Performed By: #### C BC, BMP #### [facility] [address] Erythrocyte distribution width (RBC) [Ratio] 12.6 % Normal 12.0-14.8 [facility] Comment on above: Performed By: #### C BC, BMP #### [facility] [address] Hematocrit (Bld) [Volume fraction] 41.2 % Normal 38.8-50.0 [facility] Comment on above: Performed By: #### C BC, BMP #### [address] Hemoglobin (Bld) [Mass/Vol] 14.1 g/dL Normal 13.0-17.0 [facility] Comment on above: Performed By: #### C BC, BMP #### [facility] [address] [place] [address] [place] Lymphocytes (Bld) [#/Vol] 3.4 10*3/uL Normal 1.00-4.8 [facility] Comment on above: Performed By: #### C BC, BMP #### [facility] [address] [place] [address] [place] Lymphocytes/100 WBC (Bld) 33.3 % Normal . [facility] Comment on above: Performed By: #### C BC, BMP #### [facility] [address] MCH (RBC) [Entitic mass] 31.7 pg Normal 27.5-35.2 [facility] Comment on above: Performed By: #### C BC, BMP #### [facility] [address] MCV (RBC) [Entitic vol] 92.3 fL Normal 83.5-101 F [facility] Comment on above: Performed By: #### C BC, BMP #### [facility] [address] Mean Corpuscular HGB Conc 34.4 g/dL Normal 32.5-35.6 [facility] Comment on above: Performed By: #### C BC, BMP #### [facility] [address] [place] [address] [place] Monocytes (Bld) [#/Vol] 1.0 10*3/uL High 0.0-0.8 [facility] Comment on above: Performed By: #### C BC, BMP #### [facility] [address] [place] [address] [place] Monocytes/100 WBC (Bld) 10.1 % Normal . F [facility] Comment on above: Performed By: #### C BC, BMP #### [facility] [address] [place] [address] [place] Neutrophils (Bld) [#/Vol] 5.2 10*3/uL Normal 1.8-7.7 [facility] Comment on above: Performed By: #### C BC, BMP #### [facility] [address] [place] [address] [place] Neutrophils/100 WBC (Bld) 50.7 % Normal . [facility] Comment on above: Performed By: #### C BC, BMP #### [facility] [address] [place] [address] [place] NRBC% 0.1 /100{WBC} Normal 0-0.5 [facility] Comment on above: Performed By: #### C BC, BMP #### [facility] [address] Platelet mean volume (Bld) [Entitic vol] 7.8 fL Normal 6.6-10.1 [facility] Comment on above: Performed By: #### C BC, BMP #### [facility] [address] Platelets (Bld) [#/Vol] 268 10*3/uL Normal 150-450 [facility] Comment on above: Performed By: #### C BC, BMP #### [facility] [address] RBC (Bld) [#/Vol] 4.46 10*6/uL Normal 3.90-5.60 [facility] Comment on above: Performed By: #### C BC, BMP #### [facility] [address] WBC (Bld) [#/Vol] 10.3 10*3/uL Normal 4.1-10.5 [facility] Comment on above: Performed By: #### C BC, BMP #### [facility] [address] Creatinine and Glomerular fi ltration rate.predicted panel (S/P/Bld)Ordered By: Josué Evangelista on 01-13-2023 Creatinine [Mass/Vol] 0.98 mg/dL 0.64-1.27 [facility] ECG 12 lead ECGon 01-13-2023 ECG 12 lead ECG [facility] [place] [address] [place] [address] Electrocardiograph Report Signed Patient: Rosa Eastman MR#: [id number] : 1965 Acct:[id number] Age/Sex: 57 / M ADM Date: 01/13/23 Loc: PS Room: Type: [facility] Attending Dr: Josué Evangelista MD Ordering Provider: [...] Marylin Eisenberg MD 0 01/14/23 1534 Normal [facility] Eosinophils Auto (Bld) [#/Vo l]Ordered By: Josué Evangelista on 01-13-2023 Eosinophils (Bld) [#/Vol] 0.5 10*3/uL 0.0-0.45 [facility] Eosinophils/100 WBC Auto (Bl d)Ordered By: Josué Evnagelista on 01-13-2023 Eosinophils/100 WBC (Bld) 4.7 % . [facility] Erythrocyte distribution wid th Auto (RBC) [Ratio]Ordered By: Josué Evangelista on 01-13-2023 Erythrocyte distribution width (RBC) [Ratio] 12.6 % 12.0-14.8 [facility] Estimated glomerular filtrat ion rate (GFR) non- AmericanOrdered By: Josué Evangelista on 01-13-2023 GFR/1.73 sq M.predicted among non-blacks MDRD (S/P/Bld) [Vol rate/Area] > 60 mL/Min [facility] Glucose [Mass/volume] in Ser um or PlasmaOrdered By: Josué Evangelista on 01-13-2023 Glucose [Mass/Vol] 82 mg/dL 70-100 [facility] Comment on above: ADA recommended refe rence rangeRandom Glucose Reference Range is dependent on time and content of last meal. Glucose of more than 200 mg/dL in a nonstressed, ambulatory subject supports the diagnosis of Diabetes Mellitus. Hematocrit Auto (Bld) [Volum e fraction]Ordered By: Josué Evangelista on 01-13-2023 Hematocrit (Bld) [Volume fraction] 41.2 % 38.8-50.0 [facility] Hemoglobin [Mass/volume] in BloodOrdered By: Josué Evangelista on 01-13-2023 Hemoglobin (Bld) [Mass/Vol] 14.1 g/dL 13.0-17.0 [facility] Leukocytes [#/volume] correc lesly for nucleated erythrocytes in Blood by Automated counOrdered By: Josué Evangelista on 01-13-2023 WBC corrected for nucl RBC Auto (Bld) [#/Vol] 10.3 10*3/uL 4.1-10.5 [facility] Lymphocytes Auto (Bld) [#/Vo l]Ordered By: Josué Evangelista on 01-13-2023 Lymphocytes (Bld) [#/Vol] 3.4 10*3/uL 1.00-4.8 [facility] Lymphocytes/100 WBC Auto (Bl d)Ordered By: Josué Evangelista on 01-13-2023 Lymphocytes/100 WBC (Bld) 33.3 % . [facility] MCH Auto (RBC) [Entitic mass ]Ordered By: Josué Evangelista on 01-13-2023 MCH (RBC) [Entitic mass] 31.7 pg 27.5-35.2 [facility] MCHC Auto (RBC) [Mass/Vol]Or dered By: Josué Evangelista on 01-13-2023 MCHC (RBC) [Mass/Vol] 34.4 g/dL 32.5-35.6 [facility] MCV Auto (RBC) [Entitic vol] Ordered By: Josué Evangelista on 01-13-2023 MCV (RBC) [Entitic vol] 92.3 fL 83.5-101 F [facility] Monocytes Auto (Bld) [#/Vol] Ordered By: Josué Evangelista on 01-13-2023 Monocytes (Bld) [#/Vol] 1.0 10*3/uL 0.0-0.8 [facility] Monocytes/100 WBC Auto (Bld) Ordered By: Josué Evangelista on 01-13-2023 Monocytes/100 WBC (Bld) 10.1 % . F [facility] Neutrophils Auto (Bld) [#/Vo l]Ordered By: Josué Evangelista on 01-13-2023 Neutrophils (Bld) [#/Vol] 5.2 10*3/uL 1.8-7.7 [facility] Neutrophils/100 WBC Auto (Bl d)Ordered By: Josué Evangelista on 01-13-2023 Neutrophils/100 WBC (Bld) 50.7 % . [facility] No Panel InformationOrdered By: Josué Evangelista on 01-13-2023 Estimated GFR () > 60 mL/Min [facility] Comment on above: GFR estimated refere nce range: According to KDOQI guidelines, <60 ml/min/1.73m2 is sufficient to diagnose a patient with chronic kidney disease. Pharmacy Creatinine Clearance (Chem N/A [facility] Nucleated erythrocytes [Pres ence] in Blood by Automated countOrdered By: Josué Evangelista on 01-13-2023 Nucleated RBC Auto Ql (Bld) 0.1 /100{WBC} 0-0.5 [facility] Platelet mean volume Auto (B ld) [Entitic vol]Ordered By: Josué Evangelista on 01-13-2023 Platelet mean volume (Bld) [Entitic vol] 7.8 fL 6.6-10.1 [facility] Platelets Auto (Bld) [#/Vol] Ordered By: Josué Evangelista on 01-13-2023 Platelets (Bld) [#/Vol] 268 10*3/uL 150-450 [facility] Potassium [Moles/volume] in Serum or PlasmaOrdered By: Josué Evangelista on 01-13-2023 Potassium [Moles/Vol] 3.7 mmol/L 3.5-5.1 [facility] RBC Auto (Bld) [#/Vol]Ordere d By: Josué Evangelista on 01-13-2023 RBC (Bld) [#/Vol] 4.46 10*6/uL 3.90-5.60 [facility] Serum or plasma anion gap de terminationOrdered By: Josué Evangelista on 01-13-2023 Anion gap [Moles/Vol] 9.8 mmol/L 6.0-15.0 [facility] Sodium [Moles/volume] in Ser um or PlasmaOrdered By: Josué Evangelista on 01-13-2023 Sodium [Moles/Vol] 136 mmol/L 136-146 [facility] Urea nitrogen [Mass/volume] in Serum or PlasmaOrdered By: Josué Evangelista on 01-13-2023 Urea nitrogen [Mass/Vol] 11 mg/dL 9-23 [facility] WBC Auto (Bld) [#/Vol]Ordere d By: Josué Evagnelista on 01-13-2023 WBC (Bld) [#/Vol] 10.3 10*3/uL 4.1-10.5 [facility] XR cerv spine AP/LAT/FLX/EXT on 12-06-2022 XR cerv spine AP/LAT/FLX/EXT [facility] [place] [address] [place] [address] XRay Report Signed Patient: Rosa Eastman MR#: [id number] : 1965 Acct:[id number] Age/Sex: 57 / M ADM Date: 12/06/22 Loc: XD Room: Type: [facility] Attending Dr: Josué Evangelista MD Copies to: [...] Erasmo Maddox M.D.12/06/2022 2:26 PM Dictation Location: [place] [address] Transcribed By: [facility] 12/06/221425 Dictated By: Erasmo Maddox DO 12/06/221421 Signed By: 12/06/22 142 Normal [facility] CBC AUTO DIFFon 08-10-2022 BASO # 0.2 103/ul Critically high 0.0-0.1 [facility] Comment on above: Performed By: #### C BC #### [facility] [address] [place] [address] [address] Mars Sanders Basophils/100 WBC (Bld) 2.0 % Normal 0.2-2.0 [facility] Comment on above: Performed By: #### C BC #### [facility] [address] [place] [address] [address] Mars Sanders EO # 0.5 103/ul Normal 0.0-0.7 [facility] Comment on above: Performed By: #### C BC #### [facility] [address] [place] [address] [address] Mars Sanders Eosinophils/100 WBC (Bld) 5.7 % Normal 0.9-7.0 [facility] Comment on above: Performed By: #### C BC #### [facility] [address] [place] [address] Dr. Mars Sanders Erythrocyte distribution width (RBC) [Ratio] 12.4 % Normal 11.0-15.0 [facility] Comment on above: Performed By: #### C BC #### [facility] [address] [place] [address] Dr. Mars aSnders Hematocrit (Bld) [Volume fraction] 41.8 % Critically low 42.0-54.0 [facility] Comment on above: Performed By: #### C BC #### [facility] [address] [place] [address] Dr. Mars Sanders Hemoglobin (Bld) [Mass/Vol] 14.0 g/dL Normal 14.0-18.0 [facility] Comment on above: Performed By: #### C BC #### [facility] [address] [place] [address] Dr. Mars Sanders IG # 0.02 10e3/ul Normal 0.00-0.03 [facility] Comment on above: Performed By: #### C BC #### [facility] [address] [place] [address] Dr. Mars Sanders IG % 0.2 % Normal 0.0-0.5 [facility] Comment on above: Performed By: #### C BC #### [facility] [address] [place] [address] Dr. Mars Sanders LYMPH # 3.1 103/ul Normal 1.2-3.8 [facility] Comment on above: Performed By: #### C BC #### [facility] [address] [place] [address] Dr. Mars Sanders Lymphocytes/100 WBC (Bld) 36.3 % Normal 20.5-60.0 [facility] Comment on above: Performed By: #### C BC #### [facility] [address] [place] [address] Dr. Mars Sanders MANUAL DIFF REQ NO Normal [facility] Comment on above: Performed By: #### C BC #### [facility] [address] [place] [address] Dr. Mars Sanders MCH (RBC) [Entitic mass] 31.4 pg Normal 25.9-34.0 [facility] Comment on above: Performed By: #### C BC #### [facility] [address] [place] [address] Dr. Mars Sanders MCHC (RBC) [Mass/Vol] 33.5 g/dL Normal 29.9-35.2 [facility] Comment on above: Performed By: #### C BC #### [facility] [address] [place] [address] Dr. Mars Sanders MCV (RBC) [Entitic vol] 93.7 fL Normal 80.0-94.0 [facility] Comment on above: Performed By: #### C BC #### [facility] [address] [place] [address] Dr. Mars Sanders MONO # 0.8 103/ul Normal 0.3-0.8 [facility] Comment on above: Performed By: #### C BC #### [facility] [address] [place] [address] Dr. Mars Sanders Monocytes/100 WBC (Bld) 10.0 % Normal 1.7-12.0 [facility] Comment on above: Performed By: #### C BC #### [facility] [address] [address] [address] Mars Sanders NEUT # 3.9 103/ul Normal 1.4-6.5 [facility] Comment on above: Performed By: #### C BC #### [facility] [address] [address] [address] Mars Sanders Neutrophils/100 WBC (Bld) 45.8 % Normal 43.0-75.0 [facility] Comment on above: Performed By: #### C BC #### [facility] [address] [address] [address] Mars Sanders Platelet mean volume (Bld) [Entitic vol] 9.4 fL Critically low 9.5-13.5 [facility] Comment on above: Performed By: #### C BC #### [facility] [address] [place] [address] Dr. Mars Sanders PLT 251 103/ul Normal 150-450 [facility] Comment on above: Performed By: #### C BC #### [facility] [address] [place] [address] Dr. Mars Sanders RBC 4.46 106/ul Critically low 4.70-6.10 [facility] Comment on above: Performed By: #### C BC #### [facility] [address] [place] [address] Dr. Mars Sanders WBC 8.4 103/ul Normal 4.0-11.0 [facility] Comment on above: Performed By: #### C BC #### [facility] [address] [place] [address] Dr. Mars Sanders D-DIMERon 08-10-2022 D-DIMER 0.35 mg/L FEU Normal <=0.59 [facility] Comment on above: Performed By: #### D DIM #### [facility] [address] [place] [address] Dr. Mars Sanders D-DIMER COMMENTS SEE BELOW Normal [facility] Comment on above: Result Comment: [...] hospitalization. Performed By: #### D DIM #### [facility] [address] [place] [address] Dr. Mars Sanders PROF 14(COMP METB)on 022 Albumin [Mass/Vol] 3.8 g/dL Normal 3.4-5.0 [facility] Comment on above: Performed By: #### H ALESSIO, CMP #### [facility] [address] [place] [address] Dr. Mars Sanders Albumin/Globulin [Mass ratio] 1.0 {ratio} Normal [facility] Comment on above: Performed By: #### H ALESSIO, CMP #### [facility] [address] [place] [address] Dr. Mars Sanders ALP [Catalytic activity/Vol] 127 U/L Critically high 46-116 [facility] Comment on above: Performed By: #### H ALESSIO, CMP #### [facility] [address] [place] [address] Dr. Mars Sanders ALT [Catalytic activity/Vol] 30 U/L Normal 16-63 [facility] Comment on above: Performed By: #### H ALESSIO, CMP #### [facility] [address] [place] [address] Dr. Mars Sanders Anion gap [Moles/Vol] 13.5 mmol/L Normal [facility] Comment on above: Performed By: #### H ALESSIO, CMP #### [facility] [address] [place] [address] Dr. Mars Sanders AST [Catalytic activity/Vol] 20 U/L Normal 15-37 [facility] Comment on above: Performed By: #### H ALESSIO, CMP #### [facility] [address] [place] [address] Dr. Mars Sanders Bilirubin [Mass/Vol] 0.3 mg/dL Normal 0.2-1.0 [facility] Comment on above: Performed By: #### H STROPN, CMP #### [facility] [address] [place] [address] Dr. Mars Sanders Calcium [Mass/Vol] 8.7 mg/dL Normal 8.5-10.1 [facility] Comment on above: Performed By: #### H STROPN, CMP #### [facility] [address] [place] [address] Dr. Mars Sanders Chloride [Moles/Vol] 105 mmol/L Normal 98-107 [facility] Comment on above: Performed By: #### H STROPN, CMP #### [facility] [address] [place] [address] Dr. Mars Sanders CO2 [Moles/Vol] 25.4 mmol/L Normal 21.0-32.0 [facility] Comment on above: Performed By: #### H STROPN, CMP #### [facility] [address] [place] [address] Dr. Mars Sanders Creatinine [Mass/Vol] 0.98 mg/dL Normal 0.70-1.30 [facility] Comment on above: Performed By: #### H STROPN, CMP #### [facility] [address] [place] [address] Dr. Mars Sanders EGFR-AF MEXICAN >60 Normal >=60 [facility] Comment on above: Performed By: #### H STROPN, CMP #### [facility] [address] [place] [address] Dr. Mars Sanders EGFR-NON AF MEXICAN >60 Normal >=60 [facility] Comment on above: Performed By: #### H STROPN, CMP #### [facility] [address] [place] [address] Dr. Mars Sanders Globulin (S) [Mass/Vol] 3.9 g/dL Normal T [facility] Comment on above: Performed By: #### H STROPN, CMP #### [facility] [address] [place] [address] Dr. Mars Sanders Glucose [Mass/Vol] 102 mg/dL Normal 74-106 [facility] Comment on above: Performed By: #### H ALESSIO, CMP #### [facility] [address] [address] [address] Mars Sanders Potassium [Moles/Vol] 3.9 mmol/L Normal 3.5-5.1 [facility] Comment on above: Performed By: #### H ALESSIO, CMP #### [facility] [address] [address] [address] Mars Sanders Protein [Mass/Vol] 7.7 g/dL Normal 6.4-8.2 [facility] Comment on above: Performed By: #### H ALESSIO, CMP #### [facility] [address] [place] [address] Dr. Mars Sanders Sodium [Moles/Vol] 140 mmol/L Normal 136-145 [facility] Comment on above: Performed By: #### H ALESSIO, CMP #### [facility] [address] [place] [address] Dr. Mars Sanders Urea nitrogen [Mass/Vol] 14.0 mg/dL Normal 7.0-18.0 [facility] Comment on above: Performed By: #### H ALESSIO, CMP #### [facility] [address] [place] [address] Dr. Mras Sanders Urea nitrogen/Creatinine [Mass ratio] 14.3 mg/mg Normal [facility] Comment on above: Performed By: #### H ALESSIO, CMP #### [facility] [address] [place] [address] Dr. Mars Sanders PROTIMEon 08-10-2022 INR Coag (PPP) [Relative time] 0.95 {INR} Normal [facility] Comment on above: Performed By: #### P T, PTT #### [facility] [address] [place] [address] Dr. Mars Sanders INR GUIDELINES SEE BELOW Normal The [facility] Comment on above: Result Comment: EDU RED INR: 2.0 - 3.0 CONDITIONS NOT LISTED BELOW 2.5 - 3.5 FOR PROSTHETIC HEART VALVE REPLACEMENT 2.5 - 3.5 RECURRENT THROMBOSIS Performed By: #### P T, PTT #### [facility] [address] [address] [address] Mars Sanders PT Coag (PPP) [Time] 10.3 s Normal 9.0-11.6 [facility] Comment on above: Performed By: #### P T, PTT #### [facility] [address] [address] [address] Mars Sanders PTTon 08-10-2022 aPTT Coag (Bld) [Time] 29.9 s Normal 22.3-36.2 [facility] Comment on above: Performed By: #### P T, PTT #### [facility] [address] [place] [address] Dr. Mars Sanders TROPONIN, HIGH SENSITIVITYon 08-10-2022 HSTROP 12.3 pg/mL Normal 4.0-76.1 [facility] Comment on above: Result Comment: CUT- OFF POINTS HAVE BEEN ESTABLISHED BASED ON THE FOURTH UNIVERSAL DEFINITIONS OF MYOCARDIAL INFARCTION. THE UPPER REFERENCE LIMIT (URL) OF TROPONIN, DEFINED THE 99TH PERCENTILE OF cTnI DISTRIBUTION IN A REFERENCE POPULATION, HAS BEEN CONFIRMED THE DECISION THRESHOLD FOR NC DIAGNOSIS. Performed By: #### H STROPN, CMP #### [facility] [address] [place] [address] Dr. Mars Sanders XR CHEST 1 Von [...] MANI HARGROVE Date: 2022-08-10 18:59 Normal [facility] MR head/brain wo conon 07-08 MR head/brain wo [facility] [place] [address] MRI Report Signed Patient: Rosa Eastman MR#: [id number] : [id number] Acct:[id number] Age/Sex: 57 / M ADM Date: 07/08/22 Loc: [facility] Room: Type: [facility] Attending Dr: Candida Alexander PA-C Copies to: [...] Rob Funez M.D.07/08/2022 1:37 PM Dictation Location: [place] [address] Transcribed By: [facility] 07/08/22 2181 Dictated By: Rob Funez II, MD 07/08/22 7493 Signed By: 07/08/22 1336 [facility] Folate [Mass/volume] in Seru m or PlasmaOrdered By: Candida Alexander on 06-21-2022 Folate [Mass/Vol] 7.4 ng/mL >5.9 [facility] Comment on above: Folate reference ran ge: >5.9 ng/ml The WHO technical consultation on folate and vitamin b12 deficiencies has determined that folate concentrations less than 4 ng/ml are considered deficient. Free T4 (Free Thyroxine)on 0 06-21-2022 Free T4 [Mass/Vol] 0.77 ng/dL Normal 0.61-1.12 [facility] Comment on above: Performed By: #### V [id number], T4F, TSH3 #### [facility] [address] [place] [address] [place] #### METH #### [facility] , Laboratory - Chemistry and C hemistry - challengeOrdered By: Candida Alexander on 06-21-2022 Cobalamin (Vitamin B12) [Mass/Vol] 369 pg/mL 180-914 [facility] Methylmalonic Acidon 022 Methylmalonic Acid 241 Normal 0-378 [facility] Comment on above: Result Comment: This test was developed and its performance characteristics determined by [facility]. It has not been cleared or approved by the Food and Drug Administration. Performed at: [facility] [address] [id number] [employer] Strategist: Millicent Calderon MD, Phone: [phone] PERFORMED BY: [place] [address] PATHOLOGIST [employer] GENEVIEVE CANNON M.D. Performed By: #### V [id number], T4F, TSH3 #### [address] #### METH #### [facility] , Serum or plasma methylmalona te measurement (moles/volume)Ordered By: Candida Alexander on 06-21-2022 Methylmalonate [Moles/Vol] 241 nmol/L 0-378 [facility] Comment on above: This test was develo ped and its performance characteristics determined by [facility]. It has not been cleared or approved by the Food and Drug Administration. Performed at: [facility] [address] [id number] [employer] Strategist: Millicent Calderon MD, Phone: [phone] TSH DL <= 0.005 mIU/L QnOrde red By: Candida Alexander on 06-21-2022 TSH Qn 2.46 m[IU]/L 0.45-5.33 [facility] Thyroid Stimulating Hormoneo n 06-21-2022 TSH Qn 2.46 m[IU]/L Normal 0.45-5.33 [facility] Comment on above: Result Comment: PERF ORMED BY: [place] [address] PATHOLOGIST [employer] GENEVIEVE CANNON M.D. Performed By: #### V [id number], T4F, TSH3 #### [facility] [address] [place] [address] #### METH #### [facility] , Thyroxine (T4) free [Mass/vo lume] in Serum or PlasmaOrdered By: Candida Alexander on 06-21-2022 Free T4 [Mass/Vol] 0.77 ng/dL 0.61-1.12 [facility] Vit. B12/Folate Profileon Cobalamin (Vitamin B12) [Mass/Vol] 369 pg/mL Normal 180-914 [facility] Comment on above: Performed By: #### V [id number], T4F, TSH3 #### [facility] [address] [place] [address] #### METH #### [facility] , Folate 7.4 ng/mL Normal >5.9 [facility] Comment on above: Result Comment: Rosa M te reference range: >5.9 ng/ml The WHO technical consultation on folate and vitamin b12 deficiencies has determined that folate concentrations less than 4 ng/ml are considered deficient. Performed By: #### V [id number], T4F, TSH3 #### [facility] [address] [place] [address] [place] #### METH #### [facility] , Coding Summaryon 02-13-2022 Coding Summary HTMLBase 64 HzcjdnkzZPc4nRc+PGhl YWQ+MU1ADPTmS13sbCNp sC8FZ8nICC6KSDGGTMQV CC7MRO9szLL9IXoxJ8Kf biAv WztwyWXeVJ18MLp4VSZ5 xIinMXrnkW7rgWTqG3f7 StCoIL62kZ80DBmxVIAx PnM3DxOmpqrqiAKm K7ovDfFaiVGnQvz+PHRh YmxlIHdpZHRoPScxMDAl AxXteQdkWF1wAe3qXUFi LWNvbGxhcHNlOiBj p3gtGXClHRqnKF1xdMxu N8RmyLJ5MCXun3h8Lm81 dHI+KMHiXWQ0lHbcMWex k397RsUtv2pwNYQ9 fHObCDrlDQE1X76gj1E3 MWGwHRLmAIQ0xDK0sX5j wAckivquO0GweGAlQtC7 PVQ9sLEbhC8zqCwn zarwgC3nBry+Z20YEY6O ALCWSD8GFos8V9XaAkou dHI+WL27DQErUP66lLCu rFJvr8tooQn1UyDv FULaSGF0aIzrHXsjj6Tl BLVsF32pjUJww1X3UGEa xQzciZQlQrRulTO4nS4i GYjrichcv1syxlee Bpoou8ympr47bZ28U89d CYyjVVYwJKJ5CPLcPYGq mObwan3ijZ8mHh8+IDxj d3bfj0fxmNt5XmIt BMMezlWlrKjyIYT8w9Vq Bx82Z8NslNatn2XpNli3 nz69yEGyr9X2bWJ2TGby YNJbpF0dWKdzZlK8 UBVeBhJldP07oVAtNTor Mm2xpBydhZhlSX8nUIQr yikcPPLirP6jYIVkeFZq bSszAL9eZGVtpnta o067CuGyPFO2KQTgoGGz O2YhjK1ePhHmMQHmGZUi I1PyzUAyPLalO711QTzg CwV1PWBkcaGoR4Nu YDRlzKegHzP9p0P4Lm7R v6KphlidKHL8LAviGLR7 CyZ7KqAiZyV8X2SqFkf2 PRJlbAvzXC6fC1Eh TBByvfhagkyeeJU4YFSy EDGfpY63nRFdDGzzKl3r s9Q0c934TSUmNEZdfW40 Nt8boSspSZKenUTI iU6jtyhri8xexsypJtOg MEErTTl2EKb0VBAzpDao KiSjSOI8WgE0IOQ1eJLq kG1wtSdnlztmeM4o Oyc+G29trJ4dIUW9QLB2 xfgpHWMrdnYeQR53OL24 P4DpTnhwjPSgkBT+PGRp shEqwBkvSV7jOxRl u2yto5WnQPioO5MdKOOz DYvdCmv0XBDjFAZ4xVT0 vK0qXTSbCNajp0R3aHS7 Z8RtjdAzgp8qt8bz BTVyROlhN79asJHsv2J1 VNBauZE7ZJBdgFizYdVp cB04Tsq+TEBtuNaux9Pa Tzctk4jaj5aoyPv6 IjMwJSIgdmFsaWduPSJ0 h5AfAf22Y99uAToxTLJq XCLpXPHwENTwzMecgq2s iS6kYa9+PGNvbCB3 dWW9nR4nTUEgEoN3WDti A186UmVswJWgOptrv0yt o8qefNo7UyLjOMTifgDt oDmwIEP4w4HgPx87 Q29hKXaoWOSyIPSnWPYo SWQsbLmyuy4kxO1aCh5+ WZ6mo2yhqe35cF78pAY+ OZKqNOK7gGstUWhh LBZnvN2sAOmdBzW1OUGi FsQhfF39aXEsMElrNr7i mVtwtEpbJT7hEOElwiib j436XmWbr7caYFUf hDLfKSdjOLN7P65xz3E6 NXPnPSPlLIW0pET1wQ2k bGlnbjogbGVmdDsgdmVy cDpbGWpcNLgtP502 IHRvcDsnPlBhdGllbnQg PpWmVTp6B6NyDaj3OGYx zFcwLZ2wsHMfIWdoSt1d gWeflHwrQF5lCEAb oysim271LvOjh5bpAVRu rNRlLJmeWLZ4P94ij9A7 NBJeNBObCBY6mIN5dH1e bGlnbjogbGVmdDsg rwCvyQsyOPftMPxuE559 IHRvcDsnPkJpcnRoIERh lXA1HJ58MR27aDLpj3A1 zKH4J8GqFNDiwztt dwkkgWT4HWDaYSImlL25 Xz5haPbaWz3uCDFtSWG5 CJAniSQeT9TqwK7oAkZr HSGzMQFwH8DuvRLf IDmzN434GGbrMcT0BPId vqRkV6MlMVLmrXyqVrP0 d1B3Tx0YE2W4KR50AW03 cHGjz8O6bTX0L0Mz TOVzjcspujvtbXP7RBFa WXEteS24Ft0vqVrmUx6z FHJcVCB8PVBgsAMuP1Pg lR5uZpGaVKBqVQBj D6HlfVBfVKqdE558HCjm SlV1XJThciLjR8NlEYGz jHklSbX4i7P3Gt8WYUi9 RR85SE51sAJfr5E9 hGQ2M1OiNGDwtfsaaugk zPN2NBHmIBHxhW46Dk4q yMvzOj8sMGRfCIK1CPXz rSAqR0NceQ4uKjCy PPJnWYTkO7JzzCSpKFwh U935IVpyBvJ1NXBlmpQb U4ZeVFVqzXfyYrR0z2A6 Ol3MOOSuBR50SEE9 vIO3UN01LX53O2ZsSdfh dGFibGU+PHRhYmxlIHdp ZHRoPScxMDAlJyBzdHls IM9sYi2qKUEzQSYl nXijfRSqGbHfc9veBGWv JEwrQE8fbYbzW7JzuWQ4 VYUvf1q9Ep80I31lO2Tg dXA+EKLwuYW5hOS3 aY1rMyIxWcY7FMspZ645 NhCozWLeLhrxw5jnn8jc zUs9AtZ5NGXbcgNjnQoy LJE6f6HcCq63C93o IHdpZHRoPSIxNSUiIHZh wMcujm6asA5oVq8+PGNv eMG2gEN6sB0eJvPtKpQ2 RJdrK487EpZxtSIm Swiwn8ylr6xxwCk2LcFf XMOyujWcnFggXSO0i9Xi Lz53E8WokWgnc3FqYpt6 du67jHHvo6H6yJR3 M7LaDFMsgfrwgNLgtDae GG1kMQRugbsmVJDwdZ0j OIFpY1c9BoAiMmI7JCvx W6MbqoS8UTJddSBg DJuxTPW7A56zj1I3TVCj CMCzWTA8xJJ7wK2rfBje bjogbGVmdDsgdmVydGlj PHbyPFpgY312QETj oJrdSWAjlQ7iYZPawLWd oJvxJG5gNILiqfdyLyNF R2IUM57KWMTSA9KBAxYn THuHFB23N1HfBxg4 DZJmjCqmQG4dmZUyYBto Wt6vzLembQjoSF2uOYZl zkxwHZQlyE8cTJMkfZWl mWpqQI6aTAIjugri k488ViXlRRJ7GODcoDVg P5LtpJ3cJmYrNNLgZUWm C1OcfAIfBJepZ691PDct CkP4REBlwnRsX0Oo MSPzwIwlDhL2h5J7Zi1w ZD9aUz0dTOX7EC50HE40 xDZqu6W8cHV5B9SfCDEs fixlkauzuTO2CNCq YZKnjH93vHGcQWrrDj2q o5V1h567NZCgRGFapO28 Ey2zyKbuUSUltELSuO1a memjb7dpbcpmIeTg OUTtWIv7JZn5OKMnwTxm OjCrHVY2VtN2KHT1tVPh hC2bgTklgbqqhG2uBan+ TRXtMENoowO0B1Vp Rls3JXDdiAdzKO1mtATg DUweXf2ldDuxkMbsFR9j AZZiflpfQKTjrO3rISSm bARalCugIU5aFUYc engwh197WhZyMYZ0KWNo fIRzZ5LalW8zKaRcARTd NZIyA6FkjIRmMJmeV861 IWswNlC0PJCduzGg I2OiKMWzmLujJwH9o8R9 Se6PRIyNFX08NB07eNNh f5F7eKI4C3NhGMXynkmb rblngXR6LPRpRQJe jU59fQAhGSbuCm1ar7O9 z089LJGvXXZvaI73Wy2r kVxkCKSdlDONoJ2ztohk g5qxhkyuOyZsPTXo ITu6LYn0BXYhyFboXeEn PCH1OcB6KLQ9yTVmvQ5w iXmexessxE7tJrh+T1A8 C4ByHloqiRQ+PC90 IOLwSD45dMAtuWSoc4kv fIr2ZzQuZLVjCBZ2oRge DWbby2PuOVIdN96xvXZz p2Z1YUPvkLvkyIRb PwHlrLV6sE0lFNttclta n3gcevjlMdqfn1harq55 zG70B14mHPshUCRxDGIo JUBvTUFdwTvprd9r aC2wVr0+USSbwBO7rNC1 bX8bOrAhMyB4VUkpU976 RdGtmOZdBofrf8edq5ll fDf7PbXjOSGezwCo xNmsEWB8j0CmFf39U66j IHdpZHRoPSIyMCUiIHZh gBrngy3qzW2sPc4+PC9j t5bnbn94oB65rSE+ ILJtDCC1oFjtXVagPKBs bW4xSSipJnC7MRPwIbMq zR24zMNlGMruQm4dpGxx uVumGT2qOMNiixyy r995XyWbd7vbGNNqvBXk NTzeANH0E93uj9X8GZPq EACgWFU8sTI3cD4hzCfl bjogbGVmdDsgdmVy wCgbGQynZGhcG849YYSz bTnjXxNlzEKdD4tuywCZ KI7cWbqwjPV+PHRkIHN0 nJfmMPizUMDztW6l OLKuW9s8ScNfGfG1LIen P1QkizB2IASryAKkBKUu oDKAuF5yjgizm1udssjz JfBvCTVuDMk4LFv9 URZldAciZfGiLCH2NeE5 FAI7yQCuwH0ksVbkxgdh jV0gQuh+RklOOjwvdGQ+ LLMyIME9nQxuTPyx WKTsvD1fTIJsA1k6ErLe QaX4HLgyN7QpfaP8CUHt jYWeVFFpgIDKtN4mykkc y4fiujvsGhYnOSXg JWe9GFo0OOChxIppScTk JKV3SnZ0VKX1aJNlzI1e qXwdfrvweX5wAmc+TVJO OjwvdGQ+PHRkIHN0 wYqdHVwkVRCtcB9eCXWx M0a9JeXmMbZ0GTszN9Lc rgK1ORQwmWWlPYAmmJWK yA4jkscbw6tabfaw FbMjQBNdCRc7ANp4BOOk dGwiRiZcYRJ2IgU0QMN2 zSOaaH4yyOsarjolkW4d Oyc+YNO6PEW1IG82 YN89Y7DeZvvxlPKcdHA+ PHRhYmxlIHdpZHRoPScx QRRlAaRqiKahYR1sQd6x ZGVyLWNvbGxhcHNl OiB (more content not included)... [facility] Coding Summary HTMLBase 64 AqddoqogZAg0zAp+PGhl YWQ+ML2PNVNiN11dsQMz fW8ZK1fYMY1MIRQMYBPX SW1BMD4ahBI0MSheE1Rq biAv LxpmtSLtJU22HEb9XKH2 yYvdQTxrxK4xjPAdL7r1 OlRwTF13uI68ZTniCVSn BeG0OnZskvqceIBv E5bjRdSreYXlKlw+PHRh YmxlIHdpZHRoPScxMDAl EwNasTovQI0cBt2zRPXw LWNvbGxhcHNlOiBj a4izBCOgOBpxZF5kvVcr A1AxmXQ0FPFhx6n5Yz53 dHI+TJNzQJG0jInuVTqd n103YvBfq2vqJXH5 iOCaMBerBEO8E12ht4X7 TVOyNYRvJYK0sUL8vJ4k oFpvxikgE1XnxPJfZvU3 TDK2aTRxuC4fyQwo hviobM3tSaa+U12BFU8G UJYKOF6NWfh5X9EpBeye dHI+MC76IHGbPA91tJZb dEQuz8eunWv1CwDf VNMwZOC9gFkyTLtmp4Zm OPAvR36qmYIyi6Y4GXGs qGpzwIIzAlKqvDB5vT2y KPosufgyc9ricwwa Rctms8flgl23xS84Y35f EKymGXXbZEN7WBXjJPLy eGkaxg5tcM8gId6+IDxj q0fzr0ycqJv2WpTx FVHxcvXrsKngAAM0s9Bq Yo63V0HtaMvuq8LiZyf3 cx13dNBhu7J2nRM8WEsa BRGblL1xJSqaNmD4 GHJfWsTrbH27fONqADup Nk0tcHmlnBevUJ6mECTg uebfXPThnW1xETZkuUDv hOjeXK6aPADckods a072EjLhDXN5XOSpbNGd P8FinX4sJvEmBZQiEGXr E3SzxBZwGBdhB796SSwq NxN9UIHokcTjF4Cz DKHcyGwlYxF6j0K5Jz6Q g4UhohazPKC4BPziVXT6 ThB4WdSnSwF6Q4ZhSpi3 FZXhmQbnEX2tE4Qt CUArjlgrooqhqLH2BSUt QHCqcJ49nSQvVAjoEc3l y8T9q777RFLkFMWxoG33 Jj7puApuAVDasARR xV7wqczmx7xzdmnmAyEw XHIzNJz9UQd2OQSyaAio ZrScNSK6SoF0EUG6cBVy hP9qyJahnxvibQ8n Oyc+T87qzS5cHRL8OPM0 auroZCRqseCsET59WF99 P1HwZhfzgLLdjHX+PGRp ezMofJkaGI7wLxPj f2kmp9LtQOoxD0LdCMAs HGfvJyy0JBSeNVM9sKZ6 gA4pCPKnFOqfk1S6dUZ7 R8TkaxGjsy9qn9ao JTBgHTgiK85ofKKxm8N9 TUIgoNY5GYGqpCxjCbRj xK32Hwi+BSLvuAhhy0Ye Ldegm0ujz7rznAa8 IjMwJSIgdmFsaWduPSJ0 t4WvBk24U74dAQimNBUr PIQkWBCyZMRfeVxubb2j jG6mVn3+PGNvbCB3 uTI1bJ4rSPCiJtA0HMoq I024CoNcjETtGgwll5ej b1lcxMk8AfFjPJKrojXn uIbfPBS4s6HzJj62 T50lEXhpHXMuJBHqPAAo HBCzqXqqgl7azF1vMk6+ LO9br0wsfq06yI51rWQ+ YCUrEKL3fQsvQHyx SDMywX7fETrrVjU5ZIOx AuOmcQ26lRJbJPnfFk4f xAgcwPnfMQ3jMKIuhmmh o649KgEjh8acOXAh bNXeVPsuTIA2I25jd1S3 QJYgDJIlSRH5zEO9jY9e bGlnbjogbGVmdDsgdmVy oFesLAjpLIyqC053 IHRvcDsnPlBhdGllbnQg IpOsAUm2F0ZkXdn3DNVn cBmlRM3tzBIaWChdOk5f kFzjjZeeHX6gSQOp rdxij099MsGdf1biXTUi hAQoOMqfSFV3S16yx2W8 SQIcFMXtPME7oPB5lZ2d bGlnbjogbGVmdDsg kdRgjEiwPTijRBqkX620 IHRvcDsnPkJpcnRoIERh hMO6LF19DT85gXRsy9U0 gFS7K6QmHDUsxlpe lemohEM9CTLiZPRcvZ41 Eu4edUffWq6tSGRdNCE7 OVClbBYaA3PnbP1eDjCz XFHaASFiY8EvwNCx KHwfM400LTckElU6QHDu zxDaA7GpJQNfqIyvAbK3 w8C4Va6NR4K1JX39DG48 dPRmz4V1kGS3F5Fm NNBbkcerbnvnhZD4INSa HXHmkD35Vh9neLpaKn1f KFOjKZS4ZIJdjXRzK8Yq jR6lHrTfSZXkZYKv L3CcvYTlEIwtL944KTnt SqV4EEYmxuGmY5DxYRNs dSrwDbX3f8W8Ug1EVHz8 YR88SO81fQWvz1V1 rYJ2F2JeMTQhwzevpzjl nTI1MQVlZSAreL98Xw4o oCdfVn7xQHIuGOE1XXXw oCYrO5CsmX1eXcUu ZQNeMYEfA9HmeBNwUEau I131NUvqVwP5XPJgoaXs Z4MgMDCccNmlUlR8j3S9 Ye5ENWYwSG33ZQU4 sGY2AJ65CG88T8MvNagv dGFibGU+PHRhYmxlIHdp ZHRoPScxMDAlJyBzdHls ZJ3bAo4oCJUgISAb zHcajBNaTbZas8eqKKIb YVdaFO4naQmrA7YcpRG0 WFLnp9t4Ua41D32rY2Lx dXA+XNVzcHC3uKC3 xC2lHzSfRiC7LDrgU817 JyPnwQQuVvxoc2jla8qi vJq7VnW4CGVwpaClmFov KIR3d1GoDz31U16b IHdpZHRoPSIxNSUiIHZh dWzgtl7sqS0iRf6+PGNv tUB9rEL1fB7qJeXhWhP9 QRlzL529OkUprGFg Ykmco9fut4qcoRx2WlIn CQYmxyWqtNeyTPE1l8Ud Dc04Q6RvcOavp4QjJjl3 ks83iGVor9B7tQU8 U0HgACLuwmlhkNSejMfy DY1eZMTbyxqtCXZndV6r HJMwU5t4DeEbSoM7KYxj H5HfnaQ6VJKnwATp KAicMEP6E92qe1D5GMJb LYToCNK4hOH5dI8riZae bjogbGVmdDsgdmVydGlj MTkdUCbuT039NBFi yOhxOTJeiB8aSNVhrXMh vUkwNA3iBECeptpbPpUM Y8RHF80KGWTKJ0XYMwGn OCrCBC49X2WtIwk0 RBXizYxiHF7ffRFvJOwi Sm5kcBzeqKhnZI7oKZYo mtofHXSylO7aGYCfsJFl zCgcBX3rZQZioylo p983UjVtUHM7GJLmvSIe H7UcmU9cLxXmGHPpFTEp Y4NikZZoFRkzV236NXqq WaS2HQPmruJzP1Gk DYUwmOhmNoO8u7F7Ck5w OY9cBh7dASW4SE87PV58 xCIgm6P5cTH2Z8LaXJYp jwnzbecedZG3ZKCl NOOisF14kCGqDNolPv0c z7S7o767PBLdTGLtvC87 Bz8pcKfoZYVvpAHFoM7k gkubr0ustwluVdEz FZRcOHv6GYd7PZEyhKvg ZiIcVIC1YxN2KOD3jUZf zM9nrOpdkmnleL2uVfx+ HWZkCTGzgeC9X8Hz Ngg2SDExuQodWY2htFDj HNrqYr3peIoklUpcEA5q VYHvkjigIHSmxI2bAYAv oVXjiJzhNQ4mWFHf iiazv141BwXjTHX8UDQd tEVrZ8GdsY9uMhEiZTJn FUGuN8NbcHTwWYerC569 VLodXkF9RGTyakJe A9ThSJNukSpbIuV5j0N1 Uv0LBDnKED07IE16yFTu e5L1oBE6D6VoQKNffwue qwoclCM8INEyKSSc aO73xOLmILbrIb9yf7D7 s673ZYNkHHKawN79Za1s wAjgFHHljUZJqA6ayxzd h0faqverTzAjUHZl TGs2EZp0WSMlsPqmVbUx FZP6NqK1BIU3qTZlbY8w nLbagcvjjD7cEhe+RW1l ffenhkS8BB29ED05 L0ToIvcwsUJvrLM+PHRh YmxlIHdpZHRoPScxMDAl FqHvgPevVR8gKy1qMCNs LWNvbGxhcHNlOiBj q4ldLQXgILonUH6mzQyw P6XrcGU5ZBOne0g4Jh52 B54gT2MvaUM+PGNvbCB3 zAV8wO0dYbAjBzP8 UGfgR028TvRhpWJeZmhh a0lzc5nluEr0CyAhBZBy mdNelKdqNTB1y4IjTr06 F21uAKtbNFNmGYVe HBJzPYHxfEnjah2igB0h Ii8+MELmoLO8mIZ5vO0t OtIjJoI0UElrM313MyQj pNUyLzecP89dT7Im dXA+KDFxLlz9MWDkyWcy RY3alXCjXLjtUb4dEZL4 MtJnZoIeDFgvP2CmTTOz btxrzssszHC1FUPl VXKvdN02Ev9pzBhoHw5n CRSzERW6EKIbtMQkZ9Sn tZ5pJdHhTMZpLPNdK3Lo eRIiRRsfE337LVbh ZoH6PYBbknCwT1QeJEFx tJqyPxD9k0Q0Jy1BtEtg qOTiPT4yKlZoMZa4N6Bm Jmx7RBSdwEcsBW0a qLNaBDetNf4cbPognCpm DW7yRRRmzqlwk657VrNs c9fnCUJtzECxQMsiZWP4 C10gg1T5HEUcNUEt EKA5pEJ5tL4nxQrdfrer bGVmdDsgdmVydGljYWwt LDivW254DWRfeVsfFuYC Rey5N7LyPny9PYFs fLzhAM6gcXFwMUhfHs8q aNctgHmgKQ3gQDIgsknn x559LuNqi5cbXVJtoYDp DSgtXPC9U85bg2V7 SOMcDNWnNXL7cCF2tO1g bGlnbjogbGVmdDsgdmVy qVrgRZwmXLorG286SVLh pVopUe6MBpq7N5Cj Owu4GGZusBnfNT3zoMRr HUylCd0diQeliBauBO7i KJYrkeavi501JxAmc9xv IDEwcHQgVGltZXM7 G62hs1Q0DAMrDCOgXAU1 cQA7pO5cpGtybvcshAPt dDsgdmVydGljYWwtYWxp J207QEBipHdwMoRz eWVyOjwvdGQ+QL03kw08 N0TmDsmxXqi0SCFpCAB0 hDF5dX6nUHEkCMeyd8Q5 sCE3R6BrtaCogm3g b2x (more content not included)... Normal [facility] ED Clinical Summaryon 2021 ED Clinical Summary [facility] - Emergency Department [address] [place] [address] [id number] ED Clinical Summary PERSON INFORMATION Name: ROSA EASTMAN Age: 56 Years Sex: MALE : 1965 MRN: Acct#: Visit Reason: Hand pain-swelling; RT HAND SWELLING/NUMBNESS AND TINGLING Arrival: 02/05/2022 14:13:58 Discharge: 02/05/2022 15:08:00 LOS: 000 00:55 Check In: 02/05/2022 14:13:58 Checkout:02/05/2022 15:08:00 Address: [address] [place] [address] PCP: Britt Penaloza DO PROVIDER INFORMATION Provider [...] Follow-Up: With: Address: When: Andrew Mckenzie DO [address] [place] [id number] Within 3 to 5 days Comments: Diagnosis [...] for reevaluation. [facility] Return to the emergency department for worsening symptoms or concerns, acute shortness of breath, chest pain, abdominal pain, nausea or vomiting, or any questions. DIAGNOSIS: 1:Cubital tunnel syndrome on right; 2:Paresthesia of hand Patient Understands: Yes - Patient/family/careg iver verbalizes understanding of instructions given Comment: Normal [facility] ED Note-Nursingon 02-05-2022 ED Note-Nursing Pt presents to the ED with right hand numbness and tingling that started Friday. Pt also states swelling, none seen at this time. Pt states a hx of surgery to his right Arm for a pinched nerve 3 years ago. Normal [facility] ED Patient Summaryon 022 ED Patient Summary [facility] - Emergency Department [address] [place] [address] PATIENT DISCHARGE INSTRUCTIONS Patient Information Name: ROSA EASTMAN Age: 56 Years Date of : 1965 Reason For Visit: Hand pain-swelling; RT HAND SWELLING/NUMBNESS AND TINGLING Arrival Time: 02/05/2022 14:13:58 Primary Care Physician: Britt Penaloza DO Attending Physician: Lennie Wilcox MD Comment: Visit Diagnosis: Diagnoses This Visit Cubital tunnel syndrome on right (G56.21) Hand pain-swelling ([id number]) Paresthesia of hand (R20.2) Prescription Information: If you have been given a prescription for narcotics, seek immediate medical attention if you have any difficulty breathing or any sudden status changes such as confusion and sleepiness. If you or anyone you know is experiencing suicidal thoughts, mental health, alcohol and/or drug addiction problems; contact the [facility] 02/06 Crisis Hotline -Text 4HMSX to 820309. If you received any narcotics, sedation, or [...] documents With: Address: When: Andrew Mckenzie DO [address] [place] [address] Within 3 to 5 days Comments: Diagnosis [...] for reevaluation. Prescription is electronically sent to [facility] [employer] [facility]. Return to the emergency department for worsening symptoms or concerns, acute shortness of breath, chest pain, abdominal pain, nausea or vomiting, or any questions. Medication Information: The exam and treatment you received today in the [facility] Emergency Department were for an urgent problem and are not intended as complete care. It is important for you to follow up with a doctor, nurse practitioner, or physician?s trust manager assistant for ongoing care. If your symptoms [...] so we can reach you if necessary. [facility] Emergency Department has provided you with a complete list of medications post discharge. Please inform your commercial field inspector/provider of your visit and for further instruction on these medications. Any specific questions regarding your chronic medications and dosages should be discussed with your primary care physician(s) and/or pharmacist. New Medications [facility], [address] [place], [place] [id number], [phone] predniSONE (predniSONE 20 mg oral tablet) 2 tab(s) Oral every day for 5 Days. Refills: 0. Additional medications on your home medication list not specifically addressed. Please contact the ordering physician if you have questions about these medications. acetaminophen-hydroc odone (hydrocodone-acetami nophen 5 mg-325 mg ([place] 5)) 1 tab(s) Oral Every 6 hours as needed as needed for pain. latanoprost ophthalmic (latanoprost 0.005% ophthalmic solution) 1 Drops Ophthalmic once a day (at bedtime). both eyes. Visit Information Allergies: Substance Reaction Symptoms Type Comments Bee Stings Drug penicillins Drug Vi (more content not included)... [facility] Provider Orderson 10-18-2021 Provider Orders [id number] #[id number] [facility] Coding Summaryon 10-15-2021 Coding Summary HTMLBase 64 KsrheutjCPu6xKg+PGhl YWQ+DI2MUVQxU06dbANo fS9VG5hTRF8EPLJBGWJL TQ9PFN3clAK7THzqD7My biAv StbecVHbRG08WDh0DOS1 wXpsSKfwtS9hcEFuI0u5 IjJqRV71rF39KBouDTKf ZkH5LtVhyfjpgQMc A4wlPhOvaXOrSdu+PHRh YmxlIHdpZHRoPScxMDAl LaYlsQnzGP0rAw3qBXCc LWNvbGxhcHNlOiBj g0pgYDWpMOpmIB1uwEqd L9JbjUJ3PJAkm3t6Je37 dHI+FSPcJFB4mItfSPoz n909JoXin0qjHJS0 tZCbLNhuBFN5Y21mw6W7 JJNzYSZxFHX5mGC9aI5s nZyhgfdkB1XinWRbAaU4 YIH6mXEgoO5yaBtw etqrpE5tZaa+E76LXA9Z FMNLDJ6BPlb1C9IkJivd dHI+JC47ZDKdDS92cFEn iDKql4iohJs1FuAl OZOpGFZ6fBrvGFlco0Xe WRIaI38pyTAgb5I2AYXr eZzxaTDoXdUrsME3bO7e UArkfgdey2gsnfhg Uvpcv9kefz48cH76U99v MStdELRgABN6FMWmDIEi mPyxhr2scC9dGj6+IDxj o4lsy2wtePm3JeNc MNTjvtFtuMfmMQW5a9Ad Jj91P5XzeUdxa7TeGao8 kr14xZEwb6F2kEA4HWzz RRVgqT0uYTqaQyV6 THDeOrOioJ27yJNxPXzw Ey9wsFjfzXlpAH6xIVRu jpcxFLOmmO5lXOLyqUFo aDfzCV9rUMEopcvr u915XaFpJTP5DBOcrRYe Z0EkkP4yHtPoPIPqFIXq H5UxyLYuLFizU635WCfe NzY9EVRmxsJbR5Nq NIYhtCbzHpP7c5U5Dw8X b1JhxgmgWTR1DPtbKJOv JcN4AbSySdE6H5HkEee5 ACHiiLhaVI3zG8Zf FDElqxwpgylfyPR8HNYr GVLunL74zLToNFinQc3q z1X6j563NVRyVFEnwA41 Me7llWdpCGCpuBEH vD7cbtrvs2oopzmqVqWm DRDpFFx8DLm8BEAjhIke LyGnHIM7XoO6SGP9qOSb iZ7wpYvlsugugV9t Oyc+O59sdS4kENI1COF0 jvqcTEGpsaAbEJ75FK64 P5EsBjhnyOTlzOF+PGRp rtHxjTamTA9oXiEk m3ayp9XlAOreR1XxEBUm NRaeWqz9JUQbFHP6pGQ0 iR2mUWNlMTriq2Y5dKG7 S5UrbvOgeu9ao1gd ELGjMShyI01gqPFgs4T6 EBHdnNH1CQFngKwwSoMf tZ08Vuq+LQKhyJctc0Hq Kftoj4mxg3fnhJt3 IjMwJSIgdmFsaWduPSJ0 t2PeJx86Q09vNJaiRWGg HKFmQJTcMYLosVurxr8z xN1lUa6+PGNvbCB3 fPO9lD5yWKBjXlV6UDbv C458RnAzzROtYfjrx3ba g8bfrKv1XlQrXTUcbvMe yAdjMNE3j4GoNh13 V15eFCtpRMBuEWHeXZDj PIUelBwhzw8wsN4oKi0+ YI9mp0urbm78nP43iRV+ MAPlEWC2hStoYHpy SAHnwS8eZOowKjK5JGGm XbTwvH14uEEiRZelLq3w mVjnoGbnZY3jPTPmgwpb m338PhPee3ecKKVa oZDyQXqdQLZ2C16yo9R7 KYMdHGTuLJB3sRM4oB5i bGlnbjogbGVmdDsgdmVy kDuqRWuhEXegE503 IHRvcDsnPlBhdGllbnQg BqSzEOc3B9HqNgp2NXJd iWpcZM8rjSXtWDmvWv3k iGmliYrhOM9nTEYc egnic380DvTtb6kuGYIr jCWgMFitULY6A78vc3B3 MFDjFSKrKSF5mWI4eA1z bGlnbjogbGVmdDsg iaRdmLkzIHxnZPfzI962 IHRvcDsnPkJpcnRoIERh uUB6TG44AR26lLDnt6R4 bZR0U9NiVBFvfsat kbbntYT1APDqMBSgcR84 Qy4onDqmAl9rMKXeCEY9 GBEexPPjW5MnsG4cBzMu IALcIOHgJ7AjxZZm TQmmP552TKioBqC4ZGVn wmPlB4StGROifKvsKzN6 q2T3Gt5BJ0J6UB00UE51 oSHel2K2xTY9S9Pb QGCiyblfdygqgYJ4EJWt VCBnkX14Sq7srKetUx9a KPRcCMA1WFFadXCeO5Jg dR6eWjZgXBGeIMIq C5ToaEQsCThnV082HNqh AoY6ULJetdHpL2OaTNEb dQkmOwG6o5C9Im8TOWc0 XQ87GU14mDRtp0H5 iKS2A4NsJICigvgekotc eMR5OJJvQEFyvF37Mi1b dUqqKq8hXNWmRBD1EPVi rJHjC4ZkwY3iWbEr TPJmIRPbO6FclJZtJHdi I815SGltUbJ2FAIcflMm J8QoWVLauUbnOrY3l9F7 Nm7RZNPuNZ75AEB4 tBI0QD14FI06E7JzQfit dGFibGU+PHRhYmxlIHdp ZHRoPScxMDAlJyBzdHls CO7oCz1wLHEtIASa hBdmkDBvRyXcs5iyZKOx JQcfOE1rfHhrP8NygII8 PFPho2v1Ux67T53yR2Mk dXA+GCKcmBQ4zUP8 kQ2xYqRqBhD9OQduT360 XjLrkMEhRdljo6mlk8aq qOo1EjK3VYVuzfZamKmn RMV3x2KdQf56I83c IHdpZHRoPSIxNSUiIHZh rMbvrq5iiS8mUb8+PGNv tHI7qYG2fA4qZnFnCzU1 LRloL126EtNciJRo Wixnl9fxk4ffpQr3NeYa XHSgkrYgwZevTSK3j5Tc Zi61Q7YkyXlkn6MoTjy5 bc40zQHmf4T9sZC2 I3XhKJIphrbmkVBgaErw QG9eTKQtnstfDSZbkD1x YSRxF4w2GeBhVyU1AEqi P0IpfvW7GJVpvACo TUzbBLZ9R72er4Y2IMQt OPWuSMF7hJV5lX4wuQag bjogbGVmdDsgdmVydGlj DHbnEGnzH224HVGy wHzyGEHejB4iJZDkcKRx iBnoRM1uOCNagzxoZqCS P8AOF55LCQXGP0QMZjNr TEoEYZ13M9UlRhp2 ESPvgXnrMD4giDDcWYbb Dd2ueHqmeHamKS4fODWj wuedZMGroA3xCYRqcMHu tWdnMQ1tHQJgdrxy f091DmEzCYU0CBQiiPUf V3YbgZ6uXvUxJLQuXEOp Z5ZocOVkDHskV178SQms NuE1FFUubgLiN4Pb ENVosAudMzL2z7S1Zk6y CC0zHv6jNPN1QK67WU33 oORek8Q0tFP2T3VeZIWu sktxkxihfLS8INJj SAQiyP19sYHsUUspEz0r m6W1p951DVBlMCGkdA42 Jt3sxByoIUMhyRUGeB2o kmhau9obuasaRqNf CHWqZZr3WDb7KCWluEcx DeGdWFF9GqE2DVE0vNGp wG1ntTqqowmglU3vNut+ TKDcUGYpfsU3R5Wf Ahl8DMQsfNsaQJ8jpPLu DFgpQl7zrTacsYdxBC4y OQMweanlBWJnpB5uEYOb oEStqGjuDC2hPOEs omzjr710QiAnYMY9DXGz jRHpE1ZzuI2aUaFcSOYl LJRmD1QdwSEzYKgiN782 CHkfFfG4VOFwshDc K7OzKBLukNetAlN7h8Z5 Fj0BFPiPWE68NK02zDHo l2S1vBJ0I6ZzJPEkjset gflfxLC7QDBbGRCx dO88tGMmDVhgEk7px9D0 i542HDGaVPUslS57Fh5e sOefDSDncGIHtS8xvgnv o2xehkczLfCxSKIo YTu3CFl0RRWauKycPxHk YET4PrX9LZC3qXCukY5p vLvgglcxhD6bSyr+T1A8 J8YeKabytHV+PC90 QGOwVR64uOXxoUIsp2kg eTu8ZgMcKMQrPWC7vKrr NMynv3IbNPCnR85nyEFa k8D8XEJpeIiawXRa RbIhzOS0wU3iGSkdeqql i0nggtclBvzju9dder75 zX68G34mBJwuEBZbEYRz FYVlDZIraHvzom3j yM1hBi9+MDAryQH3bYR6 fZ4sDvSkEaO5BUmgQ923 WyLhnISnPsqkn0jvp6kj sCc6SnApTTByrcEl jJtqXGV7q4HoDp36D87h IHdpZHRoPSIyMCUiIHZh tLxxmb2byJ6cVb0+PC9j b0uxak54uQ21pCB+ YWWzWRN9lFwpFDpkDDLh xA5dQPqiKxZ5YFGjStIo oQ12sZAqLNybKq2itFmb tLjiFA2vSNNyoplw m417FsMjy9gwXJFfnGMl XOryFOL3A71sp6R1YTIj CRJwFGO8aRI7lZ6qrNrh bjogbGVmdDsgdmVy zIceAOugSCzvW552ZQMc fHmnGsKjnXMmV8ljnrVP HV5dDyfkeXJ+PHRkIHN0 xLliASryRMJicQ1c OCApN6p2BiUgOkH8ZNbp G6XwivF9JZUqoOAxSZMc uTAMzN5ppcrzr2tjwxrp QjPbOHXgENi9KCx7 SMAtvTzjDcSeSAY0XvT4 BIK9cRFulS7utXfdyetk dA0xLas+RklOOjwvdGQ+ OZEaYXF1uCfnHBkd EWQubE4cSLXtO3p9NyQs JnE6SYqbH5RyegD3VJZt kTZeTDVyzTVZsP2rplad r4ltlhhqWcRgUXCb DVb3CJk3QDBekPfcWkLk PHC4VeC7PQX3yHOjnQ0m oYqzkctwoM4yUpp+TVJO OjwvdGQ+PHRkIHN0 zLjiLBfkJGZeoE5iRDGl I6h2WdBpWbH3PPkfH5Hd adP1OUTfuTAoUXJmyTQH fQ4ozgsdd4ulcbvh KpWgHKHeZEe2TWw5PPYy jCnlQaQqIVH1SyX9ZDT3 gSJgbK2etZutuynneO3i Oyc+UXK3SHT1QG64 LL72J3VrNrehiGIljSD+ PHRhYmxlIHdpZHRoPScx HEBwLmWzkMflAR1pVq5v ZGVyLWNvbGxhcHNl OiB (more content not included)... [facility] Rad - MRI Reporton Rad - MRI Report [id number] [facility] MRA Neck w/o Contraston MRA [...] 7:46 am Technologist: JERRI [facility] Coding Summaryon 08-30-2021 Coding Summary HTMLBase 64 JgqovvjhWOf6xHv+PGhl YWQ+TS5GSCBiH58epONx lT9MO9jRID5YVOUSVGMO ML6XCC8qbJT0RBtcN3Vn biAv PpejrYZkSH72CCr3AJN2 qNifWEgamK9auTCmT7d0 CnUuQB33yA73EPreGHGg FtL3EzBuowphsYAr G2awAaCxyXXcEhe+PHRh YmxlIHdpZHRoPScxMDAl DsAbyPzwQA4eXj2rLNLs LWNvbGxhcHNlOiBj o1gjLZTfJLyqCZ5ciEws H8YeaKU4EWUkk1n7Rj77 dHI+BSItZFN3ePsdPZiu s563MfQvg7dsRDQ8 dRPuEMcaMVG5V39wp4S8 ECZkHQLrMLO1xLF9rT3z hNghrkotC5IpeQBsPuR0 IIV5bJZgmG1ruUdu sxxwzQ9pBuf+I42QQF9K LMNQME4XPvt0P3NkQylo dHI+PV82STSrPI67fGUo oQMgy5ijfKg0MxDb KGTaSJL8tCfeLRjfz3Ol GNDdN37wvAJxb8O3JZTd zYyeoHVuNpVouQS1mE2a FZqkkwnem3elkxmy Yhgxf6xikz49gD74G62k AZsxNBHeUFL8SHMmMCJi dQcmah3lbE5sHp1+IDxj o5jcf6wamGq7WxCn PYRmlcDgdHrlLPW3z7Dq At66R8BbmFokk6RaWwt7 qe62cXSfi3R0dGT0UFts IAHceF3xLZwgScA5 SIFvZsFysY51wKBzASpq Do9oqYucgTbbQK8vZDLo zuseCBOgaB1pUCMfcMCr eHgrUJ1wHHXmjccv v586JwRiHSQ0CHVwgJWx J7QxvU9zGgGqNJYaYOJi N5RldGCsBGvrA637TOcw DwM1USJumtZcT5Af MWGucEdzSjF0a5F2Jm1S p1SrlovqDML6QOiqLQRi EjQrZtHiCiZ0G2IcUws4 SQSsfGdsVN9aD5Sz FNMtpufghfrhfGS3VOQg WRYzvI62hPZfFAczMs7g w2I0z497CDEuYNXjhP62 Ph2qcZklJERtvXPG lI0frcjez0tphlycOqRl AYGjJRq9BMg0OLHcoBmm KcKiFVF2VeC8YRK4uRTe kB0rhIzblcesxU8z Oyc+C37hvP2aWEI0OXY6 pnajXCMazwYtTI70NX75 K5DaNpavtNBagYB+PGRp msCxzLwrLH6iPxFl o4mrv7QjYZryT7QqIJHf RRhcYym5XQOxVWG8lEQ3 fG9dWMIfDNclj4A8eFQ2 A8JsleZvtk6vu3yi OIUeDTmdX11erGGza9Z3 MNWogWL1QTQooTncHsEq sI95Srf+HSKrwVqlq3Ma Dzbbf7zgm5boaYe7 IjMwJSIgdmFsaWduPSJ0 t0HzVa63O75zWRgxCAFe XFQvYLPpIHNaqJronw9i nG2qKw8+PGNvbCB3 nDQ9sU3zREEzJxF4SUth F693VmCkiIHuLiaua5aa b6sfuFn4XoEwBXKjghSi iBrrGXJ4q9CaOu10 W41eCCujIOGpKAVgMZOe FVGglYnbqq9wjE2nMr7+ WQ6nk1bgiq55hW58vFT+ CQCjXQL1cBrhZGwj UKUhpH9pRJgmHfI1ORHg DaPivK68bBUcVVtkKs7j dOvenYgkNW0fQHBahylq a983MfSae9rrSZCn rFSzSPbpWEH4F59lg8V3 SUYyOYSzESY8bSL4pV9y bGlnbjogbGVmdDsgdmVy xKafQSdpAFtfQ628 IHRvcDsnPlBhdGllbnQg VgMzWXe6I7XfNrd5XKVb wPcmIV3ctAGpBNrwQg2i cDcuoDklRI4xFDWv sdegl250GkUyv5tnTUMg jYHlXEqiVYP1K81eb8K1 RNChZGNuLVD5nWG3kK1n bGlnbjogbGVmdDsg hfKzjWwnJHveGEamT427 IHRvcDsnPkJpcnRoIERh fDS1IB17JX84yKBpa1W1 rBB2F0IvPOIights luysgDA4AQNaTPGqwN00 Zl3fbOanKp9cZDGpWHY9 YDLpkJHjG6WftG0fZbLg MFZgBTMnS1FfoFOt FXxtT815TAteMdW8SIJz icHfA4YcSYGkqEtcVmS2 e3P7Tu6PT8S2UX29KK04 dCGqu1H9kAB3G6Ih NGSjqvpvevvvyJL4YURx KEDkeF40Wt8nbMwhCq6q KZIvQTA1MLKswSMuI2Oo nR1nKvOgUBCiJBZy P6AvqYAhBOfyX237QYwq UmF9CJUmlzGvP7BsFLAc bPhtYmV8p9G5Oj5XZYq8 MB81SS80iHYck1F6 oQX7X5HfNMJwzrwsbmcx gME8OCHbBYFbtO39Qt3j sNqiGe4rKUBmLYR6CROx qPOoK1FdnR7oYuQn GHPiVREpV6MlmWWlJYba D167BCquAmN9WUCfghPt T2CzVZYpqYevGuJ5p8G6 Pc7HFWJxPM24FTM6 zCL5LB34MP20C6IlGxsb dGFibGU+PHRhYmxlIHdp ZHRoPScxMDAlJyBzdHls LM6nLx4yIKViAXCw rOvrfJLvDkQzq1dfOOKi FEnjWE2kcEwxW0CkvFP0 UOXzq4v0Jh50D66uD4Rf dXA+SUWgnLD4bEQ5 aL0hXaHbDeH1CXcuD710 TsQdtCPxPpdfr9tyu6qc dQj6EcS7HXHlokMecDat ZOD6l2XoCs28H86r IHdpZHRoPSIxNSUiIHZh jEvclk4xtF1qQt2+PGNv cVY9mWP8zB3gTdJhEqU5 WKqzW556WyCjdXGv Rnnck9mhb6tfxEl7VqXi MPHtsiChyMusJNO8w8Is Tf95F6XrtOqgm3LcCbm1 nw98gQWpu0T2eYO6 Y3EfOPWhbpogzOWrhUkr CU8cEKFodosbXANsdQ1s EJJhD4g7PaHsRmB6FMqk V0TfuzA6IYMdpIZl BKssWZH7E00am1K7ZPRe SMMwJEB8iUF1hZ9pnMfn bjogbGVmdDsgdmVydGlj ZOufBPxfZ466CTSc eSeaAYXuwN2gVCZkiNGx oOgbOJ9nGFMsfkbbQpFA O0JFB37ZKLPXZ0AOAjEi FTfKPF82S3RjBab6 GQJtlDgpCI4qlMXhVEgi Ft5htCpfjIhrTG8aQCFn wbzgVVPqyG4aGSMvxRZw aCljXG3hURAioplh o809QwFvLJG2LUHqeYMn B7TobA4pAnFuEBPhZEFx Y2NleWZlCPwdY005JSiw RdF2KIWeqvFcX4Rf ICItyFizDkQ9j0S8Yr3t AS6bGk0zCQB0XJ07PB99 cUIck5D7nWD0L1WyEVZb gwgroyefrEH1IQZm DJUzsA48dTUmVPplLa3c k5T1h135DRWkKDEdbE82 Bj9ufMjlXGNleTLBrR9a agfxd7wqynzbJyKy FBZkBMn1EOg2UADzlCos XmCnRIF3UbE5ABW5fEMr dJ0bkFvptanbcT1aHee+ IKWxCIFnpjB9Z8As Rug5ARZeiCwnSO0glKAb YIlbPp9mgFlbeGfqCS0w ZJQbyjrxDPFyyW0dCPAp wDUkmXhwSH4hUQMf uvxfu378GeTgZID1ZNUn qKFgT5GlmU6hGeBgTOHe DGGoU4FndECnCEkaA175 EPxiPzW5TULksqAx H8SmNQBwsTfqAsH2w3Q1 Az4HFEsPTV81SR44qFAl f2F8aOH5G7AuMGNxgymk qwtrpDL0BMBwMWUg sP13jIHiOLneDm2nj8O5 k067QQYqEVOvaT60Fn6s iXlnYFCjzIDSmT8dasul u3uzkkrdRnMeEFUm JIp5SDu5QFWagBvaMfMu SBO1EvO9MVT5lTXtcE0h jNzggbnkhG9rBvq+T1A8 C0RmRlheyYQ+PC90 ACWjZH48nMTxsGKok3ty oYq1KmHnJECiVEQ1sHre LRpup5ZtBJZqP44dsKPs e9P5BPPqzWanmEFz ClThgKF9dB5mGYbryexe o0riikcuUngmt3zovg06 lO55P38kPGepSFWcOFWq VVFeKVCmzKhepg0h nA5pTs1+TOJvnXS8qCJ8 lR2zLuSyHzO5AOixE744 ScUcyNEhYlsio3ufv6cq tRt4UsTmEECqnyDk zVtmSGA0j8PnNd05V27a IHdpZHRoPSIyMCUiIHZh gBgplt6olB8gCs6+PC9j g4decp11lJ91aKO+ YNDcKOC9gEfpWOmsZLVa nH4zAWbjVyT0KFMdKhYl aF07tJKiZFpcWu9nyYgz yIepFT8qJLUsfwnb n269XaCod3uvGKVrqYIc SRmsRZN6I47zn3J7LLGe ATWiXOB2rBO7uW3stRte bjogbGVmdDsgdmVy nOarKTxbZCgcX224RRTr hElzCsAflKYxE3llfxMR BV8oEmwarIP+PHRkIHN0 fLtdLArjOUFwlR8m LSQsO5l7DaThViH8FPhk F5XhiyI6LAMcpQDyNGHz mNPCoR9tphktv3zyogmg TxHtPMUlOVg9CEh9 KPLmqVroMlSdJVB2RrI0 FZK0rZTwwW8drRujkzem kY2zTfn+RklOOjwvdGQ+ MYNkYIA8qAwxGAro SXVmqR3lVKWrC8q0PwHb PcF6ZMfcN3PlxsK7LPMk iLPoRYHvoTCTyW2fhwxv y2jynatyVhJyRDPo OKl4IQy6WQBgwSujXeDj UVD7JvP5URH6cEOdfB0g xOrrfcoljF6pOde+TVJO OjwvdGQ+PHRkIHN0 xQudMWbwGNZnkA4mPWJr Y8g9KoMwFjM3UYviQ5Fi hlT7YINirHTjPVGrcXKD nT4gxdjzg2pwlkqh ExPaCKLzOUg9FXm6KVHb mXkyDeUuNWU6UuZ8WZJ7 uDJlpU7ktObtpoktzK5m Oyc+ENB2RVI7DK16 EG60D7JvIwjbyZAjeIQ+ PHRhYmxlIHdpZHRoPScx ZFZrRiSurMigRD9zSq9n ZGVyLWNvbGxhcHNl OiB (more content not included)... [facility] Coding Summaryon 08-29-2021 Coding Summary HTMLBase 64 AqcpwluvSGt2hVh+PGhl YWQ+YS5WQKZjA70teGPl hJ0FD8qOZF2HBWSGHDQP IW9CAB0btES1QXwqT6Ui biAv IjahvCUcFO05TMj1BPU8 mScuHAcffI4exCVnX7k0 PpNjXS28zP08PNddUTTe PiU3RkGoglybtREr B1ptQxFlvQWdUjs+PHRh YmxlIHdpZHRoPScxMDAl KnVbeSmaGJ8gBt4nYKRs LWNvbGxhcHNlOiBj g8tpJGRcCMcmJE3hkJrf B0XwnTM3PHZox6h8Ch87 dHI+ARVmOUP3gFirROlb x278ScLnp4owLFH0 rLDrDSikCVV6N93jg2F2 IEDkAKNfJKN8xFJ5mW0h nAzryenoF1LisXRsAwL7 XHK5yVAvtE5ndZll wcevrL6tKkr+D15NQI4K MYGXGX1KDhb0S2IzGgcn dHI+QZ41EGJcHU32zZFs jVXzj1damOf1GvVn SJFmLPE5uJvaSPtfy4Xb BXNrN14kdNZza3W1PNDk yCmoqVXnUnGvyLJ6gG2s GApykljsc4tisxae Ngjfy0agwx53kQ37Y02o XXkkSTFxTPA1YUZyIPJo oTyrvz2quN1gWf5+IDxj x8evq1touXv8DkFg VCHwduPsfOkhFYM3b9Kx Ie34A9CheHadw0YqZhm3 ka34gBXnk9E0xOU1IXmw NCWqvX8hXLgwKiB2 EVXkAuGiyV99lYAaFEnm Up8hwWusmEalGO7jSJAo juysHVZjbK7yVFSwxPOc dIroQA4tTMZzqqwg s881PfUxVDK4PQYfdKKu I4ZryI9hXeZxCLZlWHEk B9CilJIlGTgyJ643CFxr OgZ9MCJlccDaF7Bq MKKcgHthDeQ0o9T1Az9L n2GzwhfyWJW7AHkiNPOl HkPkLmPhCfB7D6WlHch9 IFNjgQylDO9eN2Ru OPCmczkjekqtmAD5EBWt TJVgeU55tVCzJRhyCx5v l1X1j918DZMoAEXztR18 Hn7caKboLIIdqKMH pB7jjzjvr7apgtyuMeHt JTSoQBi1BSl8SAHhaMii PaKiUPU6SiW2KBL4dQMu yN5dnZeuiwxroV9w Oyc+I20maD0lRQR4YIB9 uowaDIPlcnWyNK21PS06 I9WgCtvdeVScoHT+PGRp ctKohGsmHF1hBlDe c0iwu8HhTZbaN4SvFCLl CIdxCzo9PAExYHI6xMG0 nD4tWMFdRWxik1N5gME0 N0DxrlSmvc6uw9uy XNNiSAmbK50edXFxs0U8 AIFocDY7NLCtuDpcOhCo gS73Jvs+SRDidLqyt0Pn Cnjxk9lgw9zykDe9 IjMwJSIgdmFsaWduPSJ0 n7WeLm23I84qEIwuNSHm RNVyHYLtBJWepSyzkr2k sE8dAn1+PGNvbCB3 oOH0uD2gWLOrVdP9TMvo Z228FlBcjKWcNyaqi7yw c7kraOc1YkLcQCNykaGa dEtsZQK7l5IuUn53 M38nPKxjCNMxAMRdCGWf BXMkiYdulf0hqH4sVc2+ UO5hs4vnmn51vL71vMK+ EAZtOGR0zVwaGFwx UKCpfE0aYFkqJhL4YPVu EePaoF39lRXxLVibYo8b hUqipOiuQN6fDEBtmlyo q115NwOpu8cqCDHk mKBvLEblMGD5R60lq3U6 GTDyVSOdRAH2oZJ4qR2m bGlnbjogbGVmdDsgdmVy sZlkHKxkZVwoE559 IHRvcDsnPlBhdGllbnQg AbBfPTy4W3DrUdd1NOEo lScwPI2mkLIqGFzhKn6q xNjgxCbtSU9oXAJa klbcf587LuEas4qiSQLa dTKbPYhaTDN9T27eu4V7 CEWvZBXcILA3rDN3wN5c bGlnbjogbGVmdDsg vdTszQrwNTasSXleM688 IHRvcDsnPkJpcnRoIERh cUM8LV06LA37rGObv5V2 xXT4A0YxVGDgvzar qfnkkDI9OSDvWZWefF56 En4hxFayTh9xIFQqLIL6 UFZoaPVrT0RdbY2eSeYc ZQFrXWUmW2DhqBCh XOsmQ175CGycMuD8YSCz qtAdX5CyAQFbiHuaSfA9 x2M3Sd4CT6G7OY36NM16 dNDge7M8sER0G6Hn CRNgjmevoefrfVM3JQDh MGTonP84Jh3xzRuiVy3e CNEgATP5OCEfeALlK3Gp zS8rEcTbVEIxVFNl H2FuuDQxLTpcC986MChx LkJ1FBVeheRsJ4EbEKBz dEzmVcF4p6L3Nb0NCKa0 UW79NQ83gMVnt7F3 eJK8S7BbAHWmagcrvotx qGM8ZDUzCEDqeC49Qa6a zPecLe5dQFVcGHN5HMOn bVLsS4LgxK4oJwHr HUScZRMcO7FllPWaRErh S749ANqeFnT1PDQqafLx T4GhBUQnrWcmNbA7o3E6 Do8OIVBgBV76HJG5 iYB0QI61LA63M1BcBiec dGFibGU+PHRhYmxlIHdp ZHRoPScxMDAlJyBzdHls CJ0fPn8rOXImEQDf dUwcdMNtWdFwy4mhFVDf BTlpQY6ymHplL0JntGX8 TWDta6f2Bn33A87tQ5Fo dXA+SYWqkRQ3zCV8 aY2iGlHzYfU4QObjI629 KgIydLVvGsgwv6zij2ft jKe6ScW6DRAxcvMpgLbv JOB1r6WlCs59J78b IHdpZHRoPSIxNSUiIHZh tEyaqu0dvC3bXk9+PGNv iNR7oPY9hE3hIxBzZzQ6 QIjbB486HfRomMRw Ryese1tqp7pogXy4WwEr ZUEqynCfmXrvDEF2o1La Gn40Q7HvgPpqw6QqEbh4 ph64qXCwq5D0wNH6 E1EwDRDscfrqwPZmnNmd IS7qYJBhibezDARegB7g YLUgV0m6LoSqSgK8BCgg I8JiphP0YLBmuBQf UYzfUFT6O19xx4F9MUPt SOUtYIW0sZR0zI1ajGbu bjogbGVmdDsgdmVydGlj WEbtKUhhX830TXNv kGykMMArfL1kKKLatRQr zJfkJU6lBPGugmqzPcGX R9RNU15LTHXOA2SWVrKt HGoXKI45Y1VlWni7 RQOtoKffZM3xuHSkWVnt Yx3eaXqsqQlgOP2nMATq nrrgHWSmnS6jJLYhzZAg iEwhXC5aKSYkhsrw d138CyDfDDE5GUFwzJXl D6QcoV8rFtYwTQPjXJQo R2PfgRAvQNbuN736CIyg DlL9JSGeciHwN5Qt FKHufVtfFtI5o2T7Gv8r AL7mQo5kLNY8CV98EQ04 wPNaf9H8jYB4A0CzLLFm wammwxshvXJ2BFCm GWKpzO84tXKeRXqeYr5w t2V2j282XBVjEINggO12 Nd5gvVgsBAElnQXAiE4g ranus9mjszmgCsBk YPLmIUp0YRj5KREmqAka UhKkOTQ4TsT5VFW0sYBy rJ5lxSbtlnfqyT8lZti+ RYBcNBNxyfC4M0Nh Hmq9NUBmsBmeLN2xmBNy UGfeZf3kqQkeeGpsXT0n RYUtwqcoPMBytZ3dRKQg jYSynBivWO1dYNKj dywcf932ClLwQRR6YQDf zBBxA3NngK6dYrPpJIZv ORQuZ1UkfRErIWskX100 EOiuWlD1DNVxljCw A1XrSGHlxMkwHaU5x8H5 Sp3ZEPuACX95ZF08hMQd z6J1sEF1O8FzHTNwocxf gjzqyZJ8ECLqKGFp mG67rBOrUKjkAb4pf3S1 m644KJHkDLHewP80My9x kUxzHADlsSLCjQ1esshl a5xghkwpXuDdRCJx PIk7SBf7DXOqqMtiApLh GDQ3FuD5EXG0oMZllV5l jIdlqwvlhB9jXzm+T1A8 M4HqTeixyHY+PC90 OHJnQT34pUTjzXSyz5nk dXj7JsFiSMGtXWP2cTcw WEose8RbLAIbR74luUHa m0D1BOPboRhggUDt VtQwtMN3aR1bTTkbblhd q3zuqyktOrjcg0gric50 xE09E86iESqmWRLeVXKa WKJySUZxaLgoxc4o bK0eAl5+QXLxeCX8pWJ2 iT9eEjSkQpP7EAnjZ824 LbXowQRjRrfly0fqv9ia mZo9YvFsSGPxnzIo yPfcAWE9g9YwRq13P36j IHdpZHRoPSIyMCUiIHZh cIpibl7fbS8jIh7+PC9j j8hbni27gM37gVK+ VZMoTSA9yWawUUnxYODo gE7jEAsgFkO2LPJwYhQf yF30iRFwBKlmEz7dpVyj dBzfJS6oWSUxcaxz m899XxBza7duHYBxvSXc FLixNIZ4G58jd9L2COTb JUTlGOG1nPC5fC0mwVfm bjogbGVmdDsgdmVy gTdaVOxlWUlpL491JIWj xGobEjXpfGRpC0dzanVO WX7zXeexiVY+PHRkIHN0 oHazIBwkJTXjjK8b DICsT3k7VvCfMaY3VFyh T8YyjeY9REKgpYPxHEAs eDMQuP8ogzwqu1lwpckt PdPuBFFaIRs9UFd2 OMVehYuuHvEsFZG6HcE5 MFY6sUBftE5srBiqnnwx dN2vCzg+RklOOjwvdGQ+ NUGpWJD8gWptAAaw GXKvrV1yPYMsX3b4GcKp EwA6RWetX3RfxiJ9AZQa bHIvEHLxxCQPlY0wzspz t1bkuootCiCsZPWw GTj3GZi8LYKdfXmjZpRb TKO0ZkR5TTA8gBIbbH0i nEyhxxzreN3dTdl+TVJO OjwvdGQ+PHRkIHN0 lLlcQXpqZTDvpL7rYPMg S2t2FdPnRwI7GMahI6Dq lvC8VPXtxCGfPHFktUJU eI4gzrbfn2pbfugb HdRiCHNeKIn2YBp6WTMr yRowPlJnUAP3RxF2YWT5 zPCfxS0lpHjbihtpjW4z Oyc+AUH4QOP3RR12 KM10M9AkXpkjoBDawDC+ PHRhYmxlIHdpZHRoPScx GALsFeGhwXhdYN5mHn6y ZGVyLWNvbGxhcHNl OiB (more content not included)... [facility] Provider [place] 08-29-2021 Provider Orders [id number] #1.00[facility]IFF [facility] Rad - MRI Reporton Rad - MRI Report [id number] #1.00[facility]IFF [facility] MRA Head w/o Contraston 08-10 MRA Head w/o Contrast MRA HEAD WITHOUT CONTRAST; 08/27/2021 2:19 PM EDT Clinical History:LOSS OF BALANCE Comparison: None available . Sequences: Axially acquired 3-D gradient echo series for the purposes of rcay-wk-mmcnbx MRA. From this data set multiple volumetric [...] 7:28 am Technologist: JERRI [facility] MRI Brain w/o Contraston MRI [...] Deshpande MD 08/27/21 2:50 pm Technologist: JERRI [facility] MRI Spine Cervical w/o Contr [...] MD 08/28/21 7:38 am Technologist: JERRI Self [facility] Physical Therapy Noteon 07-12 Physical Therapy Note [id number] #1.00OTGTIFF [facility] Provider [place] 07-31-2021 Provider Orders [id number] #1.00[facility] Provider [place] 06-29-2021 Provider Orders [id number] #1.00[facility] Coding Summaryon 2021 Coding Summary HTMLBase 64 OxqpiwcaZKq0aYp+PGhl YWQ+XX2DZMNaA35zbTKj cC9UF4lPAJ5OHCDFYNYS DU3XKO7yvFT0LEpkX2Xx biAv HxqwzJNkYN73GOl5APC9 vHqwUUujaG0liDXsN1r1 ZnBnHX03eA60ZHqrRIEj SiR8IqDadmmnsIQt E0uqIhTyjLLuZzz+PHRh YmxlIHdpZHRoPScxMDAl DtZcxQxgAE0eJk1bOLSi LWNvbGxhcHNlOiBj z5gjHPJuNRzvUB7upBso A7GlvFE0MZMog2n8Mn02 dHI+KUHcOKI1iGtkFLvm n816IfFbm2gwQEX7 qXSrXTwaRUR9R70rc9H7 ZVAhULLeAES1zCT5nT8j uTalxabyM1PjqJFiHzK8 HGN3dXWysK6jrCag zbvahR7oMsy+C10BBD3Z YLGZMR1CBww8L4LjPbxe dHI+VH87AIEyIQ25dRTc vFHly5vhwJx4TmTc SXWpLUK3eSpwONxka2Lf NPYrY11keGJak1A9FHPd nIwckXBuXwDlkWW1nI9y UIvbiujag3pflmhr Hzaqd3ooqf21tS00P75x IPvpAZWsTNZ4KVHaMFGc qKsnnz7xlR9vDt5+IDxj k0uhq1stjMd5ItPj JIIvutXtjGwmAIH0s7Qi Kz81X1AucDseo2GiKse0 cv43vJMow6L3jBU8KVjt KKMtlP2wAQaoYoM9 ZLLdJdQnlR24yIJfPOat Ok2edEktoYxhIC2lDTHt gdnuBXZrqD1vSSBvkMOp aOfkUL2dAORejjxg f179JgYvZKK0NHTbpJMf D8XovT1aUnUpHXHjKDOc G3EwkNJjMYirJ459LUbe HaJ9XGOowbDeT1Gu AIVyoGufLmB5e3V9Ey3D v7TxprqiDOC6XFysYJZ3 OjC6XoVuSyV9T3HiJyw1 OHJidTqjVA3zO9Ui SYHpzzacofjetMJ4CPEi NNRjhU59jKUqTJojOq7w q1A5q687STImBRLlbT11 Aj4nqOesELYjtCTT lU1hcygcg6tiiqkzQhOj FSRkCFm1UUz8PKEhdItv WhHfBMP1XnN5QQE0sGJo pE4ruUukojtlsM6v Oyc+M38rxM5rZIC9YEB5 aqkfUIBraeZlIR45MM27 K6IcSgezxEOypNY+PGRp cdFpmNbvHC6gLbTi l1ypw3GuWIotO2TkWOHw KHbyUpt4SBRnNOL5pZW7 sH0uLTFsYAanc8X8eRX1 J1TdejJtah5gz9vq OBSlBRxyT01cpMNzg4Z3 ZCPluRS0XXImkPwdCsDh mD36Rwm+XDCaiFzmn3Ua Mocbr1dds9sbgZa6 IjMwJSIgdmFsaWduPSJ0 b0DlMx06M29gYLphWVTc ONHzOFQbLBOwbZwxad1o kE0hSe2+PGNvbCB3 bZS4iS9vIYLgHoX0NAxh B930PuJhzQAhCkxeh8zh m6xjmTj4TcWjYDMaekQy yNzdAIU8x4McBn53 S88vJPzqZBVxCEIwAVOc DOIjeQhuqb1wpA0nGh2+ YI8ov5ydld20iN42wTQ+ CTEyOFN3eZdhMDxr OXUmiX6eRRwuDzM1BJDn PrTujB57cXWnCFfpWk2d zRcsmRstOX4vXYDzvdtp m805OhMpj2knOWTb xXNfKWscPFJ0F62zl8H4 PGDcDEWuASG3aJW4wR9d bGlnbjogbGVmdDsgdmVy sPceBVfsWPmkP162 IHRvcDsnPlBhdGllbnQg BbQmVAd7V1MyIxx2NUCs cNkuQZ5zbREqEQziIj1u kDxbyZoeMB7zUUBg gfeyq434BaGxg2hjFTIx zLIeDLtjNVD3B95vy8Q3 ZVLsYUHhWRA2cAG4jJ5s bGlnbjogbGVmdDsg usUuhQipUYxoXWgpL624 IHRvcDsnPkJpcnRoIERh tJV7ZA47MI25uRIfn6U3 oYU5H7IcOQBwvjlu ivreoPX1SIDyEXZsiQ86 Wq9gzNiqGr1qRKAnZAX5 RTEuuXCpU0TivT6xLgDg IPQaFCLdF1SjnDCc YItbS534RGsuJeO7OXSa ugOsG8ReBIFmtTjnTmM4 x8H7Mi3KK8W1UO54TH58 eHBlw5Z9qTY7S2Pw BOUcccqhjnivnKX8PKUo KLIocM27Eo0nqFhqJy9m YMYwOWT3XSIyaXJeJ7Gd gS4cNtZyPWKuSVUq H5WvdNDrISqbV933EYnv UaV4USHxkkVvN9OeMLZu qWisPgC1o7R7Mi7ZSSw3 KN03IL75dOTne5P6 dUE1H9JeSTKapopvvsve dCP7JEQeRJRpnY71Dk2r uPlbJf7kPRFxLKJ7WVVp pMOtV5MlnS7pNkEq NKAbNVIvT7SxsYKjNKyy G306FGqoXqV9JPFkxiCi Z6RvZAZtqAjrBoG6h6A6 Ar9FLJIlOH99GJA8 uCU9PA31QZ33S8SlZdya dGFibGU+PHRhYmxlIHdp ZHRoPScxMDAlJyBzdHls DO0pCc7hAUFdQXBp kBuegRQsSuUlt4hfOIYa FAnjQN9ghDejV7PowEE4 UTTno5l0Ep39F86qL8Wb dXA+ZLDxlMB3yIC3 kG3uLxXtKiH8FCmoW666 QcDgaYElPtfxr1zcd4pz sJg0SgE6INItluYhuMul VDX8j2VrPt19E48i IHdpZHRoPSIxNSUiIHZh cBiwva7xtQ9hAg8+PGNv tMI6yUH6sU7cPdAcMqG9 BKsvI584KvNyxLQq Tpuot6hlp4vdbPc2GzBc QWHtblYykPhxOAZ2r8Qz Gk07R7JibIvuj9HbWvz6 zd12sSDow5S6bWP5 U4CaSOUlarljdRVlvVck OM2dYCMtsxssPRJhzX1w ZCLaY4j2PsVwFnQ6PZxt E0DijqX0BTYekZMh RFkySAF4K80ub6E7MOPi YSQhXMA1sJL7aQ4jiAeu bjogbGVmdDsgdmVydGlj IFxaKUbaV512HGRe lTozMRDubS2xSXQgaOKo aJvrMX0oVYBrhtviPvAD C0SCA80QCRSCL4XZJbEc PIjEWB46P5StIcx0 LRRicYviOQ8kuTJcGCuw Bs9wsRjyoVkzHI6dRBSo vjqcKHTetK8sSDGksFGs nWcmQO3sCSYrmgmd h068RjXbBYD2YYEjaJWr A3DxoD4jDsStOCYwLBAe P9FshOUaXNroC071KDwc FeS7AYHsmdXaJ6Vw EDOosAabEuE4g2S2Hs1w LT7pSk5dLJS3IH49MX85 dIYro0L1pOF1Q6HsOHMi wkyemabmdHY0CZNx HWSnmA31iODkZNdtJg8p m0Q9j837TTChURVktI87 Ow3zoUrxZBPplHOBxC7w qtwzx5tzfqlgKgTq SXOdSTo8IXy5GALbuRgq LuHkMAT5EtM1LTD9jJRt wY6ggRrqdhhebA5vEpd+ MFTrETQajjO1X9Gb Jzh7AQFmdOvsPZ6jwHPp ETkdMo2khUczuBatQI5b LGTxdizjXDQlkB4wNUBr tNNhdIdkUP8zAQWf ktadt676FtPjGSG0YPDl oKXuM7JlgX8vDyWdAQCj CVOeC9BrpKIsPVzvD241 VAmrVnX2KFTsbaZj M7CiBOAowSqeHkZ8d9D4 Px8QNDdNDH62YZ23qFWp c4Z1eIL7V0YqNPMnzxkv rladlSZ1BXVuPHBi lC04mYYeJUgtPu8zx0F6 w243REXfRJZypC85So9b mAgnFLOfdVYRsZ0miznt w3pwxcxwVeReHXTi UKe9ZHa1BAPbgUmaJqGb SGZ7ZpR6RBQ6wAVkbX5z iGqwzozyeP6nKxo+T1A8 W7YkGncvvZM+PC90 IMDrDM81yFSliLGyc6lk rVn8PbMnVJRgNCD4vVis KGqjp9NaYUNvU75ppTUe t6U0PTXflPzvtHZa OzFwqVS4bO6uXWrynaks o4ndthbwJjxnr8yiyx82 jN01G48jLZbqNUItZAJa HAOmRYCojXvxke1j gR9bKj8+ALEzfEZ3gDI6 zP7qMkFbPwJ8BDryM710 CpDkuZBqSwjwm9nxu1wu oBi3HzTdOBRucpBs fHuvDBA7a1UyCi96E55i IHdpZHRoPSIyMCUiIHZh rVltiv4tdZ6fWy7+PC9j k8mvki35zR76jEY+ VSXsWRL2uFnxAEhlVUOx bT4aKDeqIbV4JTBtIlKs kG40sCIsHGjfUn7gaKqy iNtwGB3qQUYiaacs a683CjVzh3lvBFMxpMRe YSjyYIK4G69ui6F1FVYs KAZvRUE0qKK8zA8lyApn bjogbGVmdDsgdmVy cPrvERutTGrrP149XVMt zAxaZtUlnLVtI4mjnrCJ TT1vSnqfpVL+PHRkIHN0 sXyoFZwrVYDsbV7h JDJvL5n7LzGySsQ4VJug F4GvzpP4ATNmsOOtXBOc jKMUzA4ysdjtu1xbuzpe XeIyWQKtDRn3BSy8 AAAmvLgiPkOsVHF5WgI9 QWZ5pDAlrL6krEhpckyo hA8eLqx+RklOOjwvdGQ+ JDAtCXX4tGckGLac YDLqoD7sDVDrD6g5BoBh ZqZ5QPujX8ThwdT3JCBb cAUpOFFvoWTWmP0ylgyf m9pdxklnBzWwOYPa EWo9XCv4YSRfxUcoOxLf MXZ1VeF2BHF7jCEfjR5o iKpdzwborA8bVjx+TVJO OjwvdGQ+PHRkIHN0 fDpbITkkNRLrpB7xGUKx U7d6ViDqQcS1HXrlZ4Ng tjF6UMAckUHuVMOkpJFH hS1pawown7vsodjv JjTeFJLwULp5CCd1XDAz oWbdOxJwXLF8OdC1GCX5 pNXqrN1rfTkabsaooD3n Oyc+EVB5JQW5YK79 FH38C5MmRwicdKOvoRZ+ PHRhYmxlIHdpZHRoPScx BSKbVtNqaSedNB4oPs2u ZGVyLWNvbGxhcHNl OiB (more content not included)... Normal [facility] Provider Orderson 06-25-2021 Provider Orders [id number] #1.00OTGTIFF Normal [facility] .Auto Diff 106-22-2021 Auto Gregory % 10 % Normal 12 [facility] Comment on above: Performed By: #### 1 [id number], [id number], [id number] ####[facility] (DEFAULT)[address] [place] [address] 91990 Baso Abs# 0.2 x10 Normal 0.0-0.2 [facility] Comment on above: Performed By: #### 1 [id number], [id number], [id number] ####[facility] (DEFAULT)[address] [place] [address] 15100 Basophils/100 WBC (Bld) 1.9 % Normal 0.2-2.0 [facility] Comment on above: Performed By: #### 1 [id number], [id number], [id number] ####[facility] (DEFAULT)[address] [place] [address] 58433 Eos Abs# 0.4 x10 Normal 0.0-0.4 [facility] Comment on above: Performed By: #### 1 [id number], [id number], [id number] ####[facility] (DEFAULT)[address] [place] [address] 73148 Eosinophils/100 WBC (Bld) 4.7 % High 0.9-4.0 [facility] Comment on above: Performed By: #### 1 [id number], [id number], [id number] ####[facility] (DEFAULT)[address] [place] [address] Lymph Abs# 2.9 x10 Normal 1.3-2.9 [facility] Comment on above: Performed By: #### 1 [id number], [id number], [id number] ####[facility] (DEFAULT)[address] [place] [address] Lymphocytes/100 WBC (Bld) 33 % Normal 14-48 [facility] Comment on above: Performed By: #### 1 [id number], [id number], [id number] ####[facility] (DEFAULT)[address] [place] [address] Gregory Abs# 0.9 x10 High 0.0-0.8 [facility] Comment on above: Performed By: #### 1 [id number], [id number], [id number] ####[facility] (DEFAULT)[address] [place] [address] Neut Abs# 4.6 x10 Normal 1.5-9.2 [facility] Comment on above: Performed By: #### 1 [id number], [id number], [id number] ####[facility] (DEFAULT)[address] [place] [address] Neutrophils/100 WBC (Bld) 50 % Normal 44-88 [facility] Comment on above: Performed By: #### 1 [id number], [id number], [id number] ####[facility] (DEFAULT)[address] [place] [address] CBC w/ Auto Diffon 1 Erythrocyte distribution width (RBC) [Ratio] 13.2 % Normal 11.5-15.0 [facility] Comment on above: Performed By: #### 1 [id number], [id number], [id number] ####[facility] (DEFAULT)[address] [place] [address] Hematocrit (Bld) [Volume fraction] 45.3 % Normal 34.8-51.9 [facility] Comment on above: Performed By: #### 1 [id number], [id number], [id number] ####[facility] (DEFAULT)[address] [place] [address] 85809 Hemoglobin (Bld) [Mass/Vol] 14.9 g/dL Normal 11.8-17.7 [facility] Comment on above: Performed By: #### 1 [id number], [id number], [id number] ####[facility] (DEFAULT)[address] [place] [address] 65377 Instr WBC 9.0 x10 Invalid Interpretation Code [facility] Comment on above: Performed By: #### 1 [id number], [id number], [id number] ####[facility] (DEFAULT)[address] [place] [address] 03792 Man Diff? Auto Normal [facility] Comment on above: Performed By: #### 1 [id number], [id number], [id number] ####[facility] (DEFAULT)[address] [place] [address] 39785 MCH (RBC) [Entitic mass] 31 pg Normal 24-34 [facility] Comment on above: Performed By: #### 1 [id number], [id number], [id number] ####[facility] (DEFAULT)[address] [place] [address] 17467 MCHC (RBC) [Mass/Vol] 33 g/dL Normal 26-37 [facility] Comment on above: Performed By: #### 1 [id number], [id number], [id number] ####[facility] (DEFAULT)[address] [place] [address] 71434 MCV (RBC) [Entitic vol] 95 fL Normal 81-100 [facility] Comment on above: Performed By: #### 1 [id number], [id number], [id number] ####[facility] (DEFAULT)[address] [place] [address] 99209 Platelet 295 x10 Normal 138-427 [facility] Comment on above: Performed By: #### 1 [id number], [id number], [id number] ####[facility] (DEFAULT)[address] [place] [address] 43170 Platelet mean volume (Bld) [Entitic vol] 9.1 fL Normal 6.3-10.2 [facility] Comment on above: Performed By: #### 1 [id number], [id number], [id number] ####[facility] (DEFAULT)[address] [place] [address] RBC 4.78 x10 Normal 3.70-5.30 [facility] Comment on above: Performed By: #### 1 [id number], [id number], [id number] ####[facility] (DEFAULT)[address] [place] [address] 29750 WBC 9.0 x10 Normal 3.5-10.5 [facility] Comment on above: Performed By: #### 1 [id number], [id number], [id number] ####[facility] (DEFAULT)[address] [place] [address] 33071 TSH w/ Reflex to FT4on 06-22 TSH Qn 2.41 m[IU]/L Normal 0.45-5.33 [facility] Comment on above: Result Comment: Gene ral Population (males and non- females, aged 21-88) 0.45 - 5.33 Females, 1st Trimester 0.05 - 3.70 Females, 2nd Trimester 0.31 - 4.35 Females, 3rd Trimester 0.41 - 5.18 Performed By: #### 1 [id number], [id number], [id number] ####[facility] (DEFAULT)[address] [place] [address] 30741 US Carotid Duplex Bilateralo n 06-22-2021 US Carotid Duplex Bilateral DUPLEX ULTRASOUND EXAMINATION OF THE CAROTID ARTERIES. COMPARISON: None. HISTORY / INDICATIONS: Evaluate for carotid stenosis TECHNIQUE: Bilateral common carotid arteries, extracranial internal and external carotid arteries are evaluated with hogan-scale imaging, color Doppler, and spectral analysis according to a standard protocol. ICA-CCA ratios are calculated with hospital sales representative peak-systolic velocities and recorded. Vertebral [...] 2:18 pm Technologist: DIANE [facility] XR Chest 2 Viewson XR [...] pm Technologist: SE KATHY [facility] Coding Summaryon 05-23-2021 Coding Summary HTMLBase 64 PxrfwiyiOVm3lWk+PGhl YWQ+EE9AXYIlX65okIMg pG4NK4pHTN1YDQSWPIKP IG4NOE0ccKF0RMuuE4Re biAv CvocvWWbBZ05BFg5YER6 nPeaGZwnsE0slSXxQ3u6 TwBzYG30bX52NOceSKFk RyH8YuRivvgaoEDh X8xuCuFmuEDzSal+PHRh YmxlIHdpZHRoPScxMDAl GiTqrCqtCX1sBa9tAADz LWNvbGxhcHNlOiBj w3mxOEBoSUlkRF1ylJlu U5NnmQF9HHOwj2h4Qp44 dHI+WSHzSON9uPhcBVhx q226YtHod2exADM5 xJKfJZkaYNB6Z71pg8N6 AHHpRJQbXFN3lVZ4wA0v iCyunysdO1JccUWdDdQ9 IVQ2wZTsjN3njGbh qhtodE9jIuv+P68VVA3S XNDUQX7ZSyg9K4LtXavy dHI+FR46PVGbZG75tZZd kGHla2mldIb3CrOh BAFnQHI8xVhdQLbmm3Fo MBJdJ45rrQNhr5C3USYj tSeogGBsZsOmiFU2nE7k SZksyezfs8butzvg Tgnty8ddrt98kH93V28z PNojRAWePAJ6VJAiDBYx vZkfgh8hkD8rDc7+IDxj r1yhy8lpeAy2EzHy ORXrctLlkGhmKAC3t7Sx Bi19I7DrdUzme7RvAjp7 sd56oXFli7Q7gHZ7OSii IHBblQ8kTGafRfO0 JUGqWcFswS18wSHuJKyp Yw1epDaqzGlrHG6pBNMt ffefPSBqqQ8yGIFpnMLe nCwvSC5mIZLjjiaz e519JdLvDEJ9FGOoeNFl G4JoaD0eRzRjODWtFAUg F2PvbVClBAwpS940AYxe CyX8OTLpkmJjQ7Mt TFUnsXidFrL0b0I3Ss3O y9WkvmdvBZW4CNziZNT5 XuX9MqWgDiW8C6XmUtz8 BCRrgNsjLH7gL2Yq DKWmewvxdocryDU5ESZc VAEbzB41oRRzIPhwTw1g n7F0v696FCVsIIKcaQ02 Lg5ycFdjLXTycKZJ zE8pmxwdt9wobuwcAnZk GDTgPTc8GOs8BVFahTia SrYrWAR4ZyL5UVV7uHUf jJ4ucVihqofmsJ8h Oyc+G57ldF6wOWG8EMI2 iygjYYYlekKqSX50NF62 T4WrFfqaxUBphQR+PGRp hhIicFssAO9zPcCj j8med7QeZWonT0GkFUBj QUnbVgy4XIQtGJW4mZO6 qB8uKNUwNSsko9X8hOI4 W2JdpbPnmu6ge2wd QBMnIPnzG14gnJTur3O1 EEGlgID5NNExnSavCbOq hT45Qfw+ILNfxVnmm1Su Ulubx5xhf2oeeSx4 IjMwJSIgdmFsaWduPSJ0 w7CfWe94C66iSGiaLZZw XQWlPJHiZIEnfEstso2u rN6uHy2+PGNvbCB3 jDD7aP3oSLWxDbL7VSex N746VwQelSPqNuljc2lr v4bonGw9IjDgWZMorkDw kIfdCLC2n1SaLh28 A28cRGiqOKQmUJOgDECh AXThbJcmfb7nlY7nYm2+ BD9lo6wjkm23kE05gNR+ GULrGFZ6rKabGEoh ZIPiuT3rSCekVdD6QVQy BxQaeN40zCIsOZefVu7e oSuccAylME0xRMPftwsz b873NwUlf9wpMJVq eFEhKEzxTZS8M02ho5B2 KVFqPNInVZB6bGX2cJ5m bGlnbjogbGVmdDsgdmVy kAbeUIdnAZriS783 IHRvcDsnPlBhdGllbnQg LaVqWVz0W5YwAps0OMDn lNngWR8ewWUdWNitFo7c fEtyeEqpGE0cSEYs rznzd675RaZki9cgVLRs eFXhWGlkNLJ6T88ay2L4 JGLcKTNgLLS5yTE3uA2w bGlnbjogbGVmdDsg zgVfoZjhXYjfXIlxB046 IHRvcDsnPkJpcnRoIERh sNY9XU63BE82oUVpf0W7 eLI5L0XaSWCchkrs phcpeIM5BOGeRDIglP55 Si6ktMffXo1bEEKbCYY8 ZAPcdURqM9BsnC2jBdWh MJAtDREnP6QmgKMi XNfyB888HCleLbV0RSNz njHlW4IcPHEtnPdhReM6 p6E1Ns5LT6I8BA37AF27 jMIop7U6qFX3D7Nm BJMdfhpwqwjyvXN9KJBu NMUmvM80Rw5uzZdaOe3n XGHvQQM6MGTclBPiK4Ic eS9sElWhYYXrJPGu M0McbJJpCVbsM521GEhq KmQ5NCPnmnPzF6AzJCCb tMcfKnV3i5D8Cq8DGAv2 WW67YY65cBIdt0O0 oXE4W1LdQYNjidmphngh iVT7AYEsTSJnlJ77Ai1y lJliQl6dQIZlVPY5ZASj kFXlU3FsyJ3qNiRm JVFlPXIxP4JjzSXfZTqg L187KEwjZoD7HXVtlkQx E4NrMVMjuGycLsD8u7B1 Ow8IJKQbNZ79YYJ9 bZW6IJ17EM59Q0DvIxbg dGFibGU+PHRhYmxlIHdp ZHRoPScxMDAlJyBzdHls UM8wYd9sXRNqIRHd cEpioIHpGaGop9hvTQWb CXkbIV7veSnuD2DiaDX1 BFFsm6d8Wz61G57uJ0Lw dXA+QADhkIG3oWI6 gY9mPaNeMwG5QAhzJ433 HwLphSNeTifza9vld8tf oQd3QwV2HDOiaxMkbMgj GWV9f6NlYt12Q63c IHdpZHRoPSIxNSUiIHZh tJasdy8zpA2hNe2+PGNv lTK4bHW5cG1uWeTkEyX8 XUmdC277GtZddPSp Xbfbl5sri0zxlQs4WzTi EYFeduAeqGocKLT2r1Ga Ev71O7QcoFzjd7NiWkk2 av26rFZbd7V2xCD5 X4TzJGQbsjbguDCvjIxc TK6gETYxaybpQGJheE3d EEIjH6t6EfSmPyK8SEzk Z4BkadW3GHNwaSTx CYruQWY4W74ky6R0FGVa HFZmRCO7xYZ0zZ4hjZyo bjogbGVmdDsgdmVydGlj AEneLNurK543LDJh gEnbMGLkkN8pNNYnwODw zOdePQ0pMPCrzapjYjXC I2PGF91GSOEAT8CQMlRl AOwHSI54W1CjBlb2 BSSdqVlgEC4xdMFtIXry Ru5vjMxszZymTF0hPRVn jlltPRZfbX5mRAJztOVi iVeaPO9kWMSrfaiy n734DuFoLUS9ETRqhMSy M6HeyB0nHxPsVAAqCQYy V5AtmDNyCNfqN048WLpa ZiO0OVEndmQsC3Ut AAUujJtmIvB1v2I3Jp6j NU8gIh5cTPY4DQ92VC00 aPPss8E9hDG5W5PxIFJx blpbpmoljEF6EFOt WXOzeC05hKUyUMwzDh1c y4P1n393BGZcYFWghN71 Cc8lnWigNEWghDPZjO4g ffdao7caxqcuIwWx XUVoLAu1PGy6SNBivKfv RhYoJLW4NqK6XLE5cSFv eF9tqXmxrrlusC2bNwi+ WUMcXGNhkvS4M6Lx Koc4NECivNggDB6bxPWr RCzkQa8dhGgnwIrhBY6e UXMsnzwdPRGikN1cKMIy kJCxmHxpUD6xKPOu ldnmn591ObOrLCS2MVFl nQOhM8IknE8rKmZcWVJa IRCcD5DrzHKpKXuqA125 YDezLbV9TAQoqzWe R4CwQPNzvDihDlS4o0J0 Mw9IELnZCU73SC24yFZi y5N3tSN4U5UbAJCfvytg taqiaWA8OXObDQOi gF63dCQtBQsaAm1vt4X9 i647ZVIjFRYpdZ90Bo4e aEaxFJBdlUKJiW1axsyg y1zuxrqbYwRuOANf MCp1AYu3DCGaiZotQtPp SPK4PbF2JTG2xPXmdH7l cPnuaknyzG3gGth+UmVj zWUunY5qVJ42tSSo bSoiuiX9V0IjEkfooPH+ AV94JRIkZZ66pFKfsANb r3usyXm5SoVoEHIeKRH9 oBgcDSrer7NfVISt I16ssMZwh0C3QODhhSnb xUOeBrHqqQE7dJ8bNDqb sqosy1xbofcbTlquv1kc me05gD33F83cKAkf ZHRoPSIzMCUiIHZhbGln xg0dkI9zOw5+PGNvbCB3 yLE0aG8lOeQrGlH7XBha A001NwBlhQMzHhsb k6ogd2enrLt2BxQhUGOu vrChzXvrSNX1u0WaFz45 O79wIWeaNLJnSZIeXHWu JCQtqAsgkz4zcQ1y Ii8+XB6mn3obhd17bQ21 dHI+OZDxXJB5vMlaOKnw SXLgvG7wLJknDgO4WNTo BzTilD02yBYkBSlc Ik2woTplwKqzFP0zKQKh axgpw265GaWtr3mhUOJx nGGxVFsiMWN1J28xr0Y3 FQVoLXWyQEA2oAP1 mB1imGmfofchsJLxyBvv buYzpEviEMswJOmmA670 WLQncGkkUhNoaCVnX4vr woOAVX4bPdmmxMJ+ JCSlHVE3oWzbZCxnAZAk vG3jBHEbI1m9OgIaCaN5 NFarT7XsuiN1OSGdmBWi ZZJqhQARqI9ioxgb g5zrgtxeSyCkNVDnIVk2 XGl9FFWcqZlvVtYuLNT3 XmC8HAR3yPEhyQ9fzKdo rubezV0lFoc+RklO OjwvdGQ+PVEiJSW1hCrr AEuySCTgvE7jKUCaZ2o9 XiOsBoA2RAphB9NdwuF9 IGJvbGQgMTBwdCBU hE2yhshlp6mhyrzzPtUr VRErTJh7VFh4RKNjnTwl HbZrAWW7CnL1TDJ3aWNi qE5fdIbeqezlvH4g Oyc+TVJOOjwvdGQ+PHRk KKR7jYmyNDahXYGshF2f KBHiX1o0MnSxNuC9BGac M4IfmtL2IDHraWJe GOTkvGMKwF3typwhp8vl zapaHrYqRABuTQg0CPo3 VHAusSvaUkGbWEM9FgG1 PTZ1nZPofJ7qgSmb uuboeY3wHjl+ADD7KQK1 NO60IV82Z6KhMmtsgVLs bGU+PHRhYmxlIHdpZHRo PScxMDAlJyBzdHls ZT0 (more content not included)... [facility] Provider Orderson 05-17-2021 Provider Orders [id number] #1.00OTGTIFF [facility] Coding Summaryon 04-27-2021 Coding Summary HTMLBase 64 HmgzksorMMc8cXt+PGhl YWQ+IV5XXGFbT57dwSOo dV7YS8pWRW9ZTHKTYWLW FU4FMA5gmVI9TZkkH7Uy biAv NnilkCYkWE94TZr1YMZ3 cMzcKJukgC8keVFlQ8o8 YhFdIU90mC84OVslMPUu RzC4MjFmfufflHHb F5qpVoHodRMsPuh+PHRh YmxlIHdpZHRoPScxMDAl WfXrwUbwMB7aAz5hEKCg LWNvbGxhcHNlOiBj w9wbVBDtFMqgNK1ufMuk E4ZfjNS1CEWcr1o6Ca38 dHI+KPLtBZA7yGedCHkx o982BxWfe3ctFNR5 yOGpRQntVPI8Z67sx2D6 RCCmDWHgVZW8lDH4kL7n bBqmiqozZ7JstEXtPtQ6 YEN1uKTweY4vuDpv degfvO3dMwj+T81XEY0U JBUPRK0IBaw3C9IxPndc dHI+HA39BODuIV96fMSz qPEdi8jvcHe5NsGz FYJmNKY5tVxhGMbxo6Ff ZMXuP39baJZfw0D9DZLq rIgorVHwXqMaeMK4sG3r EXvpltvej0aygopu Fkypa3eaib74nU38I68p ZFqtHVMiYKC1DLNkFIVl hQdpim3jhO8dYb1+IDxj w5knl9xziDd1LqWk OQPvqmQhlCuvQON2k2Am Po91S2SbrSpea3PeJjo9 zo42vZWlb7Q0nZH5IKck KPKbbH9uIArgQaJ2 IMSkGdQztF39uJUuYToy Jh4yrDdxbQyxMF4kONXy kxlfBHDiiX9nNXQdzUEn lYpqHG7vBMHncoii s612FvVtTCM2FXQswVGq I1DplA0iIwLiIMOyVTOw L0BaiVXvFKawE935OUak AeM9NLRnvkBuL8In KLAcdWmfCdD1f1F5Al2I s8UzfbczSHK0PXswELC5 IqM1EtCcSlX9R4JvTos3 FOYulKdySA5uX5Aj MIIsnbzrcxkenUM5WFJf IBXeaH97cGYhHGgnQx1t v2Z9u146BPPpCGKhqL04 Ei9dzFdkRNFroMPO vK6qfuefv6yqaeqlMjDw GTYuGOw3ELp1AKCgdHez UdYxNSG8JbN5URU7zLZp iG6faTvisnmueA1o Oyc+P23fzN1dJGG9IZR1 ctmsHRBofqIxSI96ZJ36 H1XsIrhspRWcwCA+PGRp djTjzAhdVH8uFbRj g4nwj1HyIHzhR4NgYWKg HGpsUkw7BOJsFFG3nPU9 qL4lLZEsXGxta7R4nFP7 G9LfrlAlbr9hy2jo LYMrRFxiU32ayKGpv8U9 SSXyuEX7EROvxWrbZqWi wU97Xfi+XVRbtEpou5Ul Lxtno1aqc3fbuQw3 IjMwJSIgdmFsaWduPSJ0 j9InPd23B88iZHglLNRq HBHbNMDiIEMabUylmf3n eM2rFx9+PGNvbCB3 hYE0sE0hJRMjWoJ2ITpk K377SqUufQPtYsvtl1qw t8hrmTg2OjGwGXTxhyYg nMgzSKO9w3MlOo84 Z72cNXzlHFUfZFIqIWKu LIAoyVrhpu9boI1fIk8+ FM1nj4bzfq81tV85yPI+ GUQoNYS3fIraKTdw SXRgqH3fJBuaWdB1ZYQy HhKsiR51hEGdXMzdBk9f fNszvVwgAK5xCBNsoslw y499EwRfb5lcWLUe rTRaBYwiPJA1Q12he6K8 SZUqXTNxQQO2tUS0iG9p bGlnbjogbGVmdDsgdmVy iXejLRjjXPmqY360 IHRvcDsnPlBhdGllbnQg KaEoIAa9W4ElZzm7MCLp mWonXI5scIHwSVzqRb5r mPzxuJdlRD8lQFGk jjjip396IuDae3xlZCWs dPYuWQnpVWZ5Y21lj6U3 ASKbRMDmXOJ5vHR9wO4y bGlnbjogbGVmdDsg brAmdQieGXoaDHxvJ321 IHRvcDsnPkJpcnRoIERh bHR8QT05UC93bJBgk8P3 lSD4K0AaLBIyzzie lxnlaSI4LXAuDWBdeR57 Ug4mwKdzUr8vKFKcQVW7 ROIncGBnO4TreR0pUiOl KZBvLENrB3ZzuMFe FKhtH329QJdvNrV6FIKu jnWcW4DsWJQifYbvPhH3 f3G7Tf5YY7U0YJ75ES99 jCVfi3K6bCN3C9Dz OTHheakaxcspcKN9OXQe XMSqqE55Gy6bqQlvBh2b EOIvJWS5WIHmoJShV2Ax kE1qVyTiFJRrOGIu N7GauMHoSDeqT787IOjc QcT3DWKyswPsS6LhFZLn qFeyPvG6c9W4Qo3YTOh8 WI88XR37fSKyp8V1 wCS3M8BxSBFqmxhlhwop sPJ8JXQhQLXmbZ29Ok2i sCbxYd6xHTVaXTC8YNYc mURjW7NrpJ6iVrUk AWJbNHIbS9TrzNCaCTus J148ERdgTvE5UKFbqvGd X4EuXOWcfFsgEvV1y7S5 Oe1ANEVhLM55TWK5 iNA1BY90KR69K4KjLmbt dGFibGU+PHRhYmxlIHdp ZHRoPScxMDAlJyBzdHls UO8hTc2lVPWwHTBt kSdluBVbVfAkq8ocRGXi OZcdKU7xcNleX8RmmRO7 WJDbs7x1Mg97J84bD8Pj dXA+EIVddMW7vCN2 yX8yUuGdEpR3JMvsY667 HySfpOApHjabp3kvp2nc wNl8TqX7HWXfhbHnkOxh KRO3b2RiQh23B52i IHdpZHRoPSIxNSUiIHZh fMcfcr7ujU7iLx6+PGNv kLS4zYL2hA1fBaDmOiS2 LHbwR725VhFprNXu Ttuol4aqb7uxsHo3QbJv MFOatwWdwZydNUH1a5Vq Wz08O5HzsKgbn3RmPha7 zy72cMKjl1L5hKJ4 J5TfFERbhvcqgZOhdFen YT8jADRjuyktVDBlyL9u JEGmJ8t8OeApWpW6HMso J4PkoeT4VOCmuQMt XXclBTK6P00hd8P6GJFn VXUoMYC0nAI7aL4chFrd bjogbGVmdDsgdmVydGlj AEsnEEkcN785KSLf eCkzKOTszP3nYQFfxKVc cXusTU7cFWBmbjulSjGY O2FTF65VFDEQY0UYTjDo OPsGFG38S4TxAel7 JUPuhMclKM4vhFVrGTff Me0ybYuovFrwSI2nQCHc iblnHQLmkO5zFJNfkOXt vVmkDZ2aTQUgfzau u494MyVsODV4YLKuiGGx J3UmcP6kGkRbEBOrXWVx P5AljNDeQHtiZ211RAnf AdU2BQJnawGnE4Qk DIFuuYpvFoK2l5X5Wq0b DM4cLp2bAQG0XR56ZG09 jVOwc9Q1uJL1M8BaEQPf nomhplhlcZG2DPQm XIWhhK33jROkUDjnWm5c g9W6l349UCNoTFLtwJ52 Xh0snEdrOWUoaKSIlZ6i zbahh8nzaiihEcJp YTUwKJx8FPf1ELTtrIre TnPcZLB8RoN2TLQ1pZPe nH4bwFobpqvusW6lByg+ YYFhOYZgxfJ0N0Ie Fls0EGEdySwgZV9wnGFl IOgmQp7tpChniNkxAX3r JDFsvpvtGCIsyC7bGUDz vIRvcSefUJ7bUDVe nxrzg141KbXkKWA4HQEe fDJuY5QvpB2oSqNgQIUe TQXeE0QguUDqULllC892 DEhmBxO4JQFumbNw R2XoNENwsFbfBcJ5b2J7 Pe1WMLuSKB01KO06lIWa r5J7pZW9Y8XaXEYhwblt ybdejQJ0CHPxSOQw jQ91wGUfJUmaWv6hm3T1 t058CAFnTFGugM29Ow9r gXtxGIPfjMLOeF3komvg a6uicxheFaCeSQZx MXu2RJj6QECeoPhlKeRn FHF4BaB8DTO4yPZtbB8i gNrrdocefB6zExj+T1A8 M2FwWxhdeFA+PC90 KLBiQE06aAYanEEev8hr xTm2GtDwNXBkCCW2bXpc WUdpo0CiULDkZ73qsELd y5U9JKSczIodyOXr QnLyeOY3vY1sSNhllslq r7stgfirAniph4zwje60 eV80F20fLIzmNUXoJSHi FFCsLERxwMsvxb6l pU5xLq7+EJVqvHN7oPZ1 bJ9sMmYmAoG5FBmzY806 JnQbjTHoDumab5sgq3wu fMu3KzWxPOAiuoBm iOgxGVJ2g8IwRm99E46j IHdpZHRoPSIyMCUiIHZh cZxyqw5azN0bXx5+PC9j n6ltnj73bF44sEG+ TSVdORK6pQqqQEvoFKQj mT0lKGfoQlB5RJVbNwUi cH24lPYjEBudOu5zjWzq mRhbYP9aNVFgjbgi n411VjAng1hpXCOauZWb ODvfNBW9W17ai7S9HIIj GADoGRU0vKV3eD1fbKzz bjogbGVmdDsgdmVy sIbkVXbbVQsuQ217FYFv sVgqVbFcmWUmS6ujqySF TR8wLmwjjYT+PHRkIHN0 gFidEAkrPPDifB3o ZSIiH2z2SuNbDgZ5GEso T7HpeaD0DXNfbNVvEFQp vIVZmV4nkkfao7qpjfki EmOlYEMxDPb4SYb8 VRNqiJxiFmTiUUC6YfC0 SOR2hOLbpX6jrMkfwczx gX3fEuy+RklOOjwvdGQ+ YREkHSN1jAjdLQwe AGAgxO6bFITeW1q0TtYt ItB6CJjhW4CxszV9SKHv oLOwMKQzkSGYjS2idjgx w9bucevkYyIeJDZu OWq4KMe8ASOyhZwiKfRe IBB8YcK5ZQQ6jXLcqL8r oIlasxxqzF5oFbn+TVJO OjwvdGQ+PHRkIHN0 rAnrZEoaFICqdW8kGQFn R5o7YcGjHdY1QVbqI3Ud hzM5GSTaiFLxMROzdPLN gT7pwdkpk2wvdqvw XxSxCZDxMRj7JJi7JIYv jJfqRoYfXLF6LqV3ANE8 qNGrmS6fwMpbqlcucM5t Oyc+MYO3BXG1VW13 IS44R4XyKptvlLDdqPC+ PHRhYmxlIHdpZHRoPScx GFEbGmHkjCocIM6nKy6j ZGVyLWNvbGxhcHNl OiB (more content not included)... [facility] Coding Summaryon 04-06-2021 Coding Summary HTMLBase 64 PgpcwdlxZRb1mNf+PGhl YWQ+XD0BHWGwV78awABx aE7OH4pTMZ7XJAOMTWOO YS5MCA0gxVZ6GLwtB9Zb biAv OeawyRDuNT33QQw1BJS4 zKceVVviwQ7krZSyE7y4 MfInBG88gI97KJpnBIZg ClR5DvRjdgbqvULq U7ihPnAgmGJyJdu+PHRh YmxlIHdpZHRoPScxMDAl SeShpMdeMM1iOn4kOOBd LWNvbGxhcHNlOiBj x4hhNRXwCHjiCD1vrQhy D2KnkNS0VIFmt2j6Gq71 dHI+HNIxXLA8aTnsRKke w929WkFhs4iwRAG4 yTJqLIzcNHB8W37nq4Y2 VAAuOCBjETV8gNX0xR7o gTotnuqyC8KwfRHgEbO0 PML0nCFkzV6gpSpg rcyhyN4wZvw+K17SHP8L GVMQQK9JIrc3S2KrCccf dHI+BO49HQZyIK96fBMj eLAob9rqtRq7NiYe NYAtVOO5bHofSMlyd7Nw QIQzD39iaENbo7P4YSEw jYrozRAkMnEgxNR0cH6y SPlzjekxz8avvubc Hfmtv1fnpf65zF73Q20z QBnuTABxFLP2FJZeVGFj xCnzul5blM7iYe3+IDxj v3hsr8fkzIa8WyEs JMJildUecZemMST8n0Tg Tn30F1OhsDjua0DwAro1 cu85fKXkd2T9kGB2ADvo JULrhH7pUJelSlM9 GIHqWeXjuV09yBDoOTws Ct5oqVzefBfiPY8fXADy deaoZEKkvF2dJKVxkNXn tEuyEY2yJSJjohfw l332MvBlLMS0PRTntYJv X5MrvS2bDdHaYPLrIGUh T2HdmFGkTUmdV129WSdn PcR6OBIsgyRzT2Gv AGYhvVroNvA2n8J4Rz0Q b0TwpixnRFG8JImvMCX9 IuD8DlXnRlG5J4HrChu5 IUBqoHfsBN0zJ0Bg IVUhkyuvwazdpSE3FYLr CZTqdC87rPYaNCqxEw1g b1P4i112SNUgOIFxaA43 Tt8nmFxeBOLopECO pI9nllccc4hkqefnBhXz CPYeDFr2LKn8XMHnsTav XuHlUWU8BlY6MWU1jZOp wJ8gpAaqiufwaU0t Oyc+K23qbB6zLHQ0CMI3 eivfIAMaafJtVG76WV36 U0AkIldpcZKihXV+PGRp fjWjiQxyZS4xQsCb k6qfv0PkQLizC1XuFFQa FWckCkt6UFXeZDF8hEK1 kS8vZCYnJMfnp2M9pUO1 X4BaxjPqdt8kp8bo QEMuVBoqI87jvPFcr9E8 APBryHA9CUVmfIglBwPa bA96Msw+OXUrjFbdw3Nf Sivqc5vfe0vlcSd7 IjMwJSIgdmFsaWduPSJ0 g5WpTt97X65eAYrcTRFo AYMwRRKmMAThiEbiws3y rG8sUn7+PGNvbCB3 cVT5tB2qVYJlHjP2EUdo N958BjTrhXYaAgbcq2bl x2pikYu9AqJsXZHduuAr bMfdQDO2s6YcFe23 W23ySJpmUUAjBDRyDPLa HFAjlNvrgo8oaB0mVz2+ ZY4dn3abus44wW71nDJ+ QUGgAEZ0hXjjPNjn WVHayM4vRRllLdJ1ZSKl GpDhfP21wBFlIZviZy1e yBotkKfuSI7jXLKncbrg y463AqTjv7goTAGz tJErGUbaVYA1S86hx1B6 KAIhDZJfCSI8wCH9gB6x bGlnbjogbGVmdDsgdmVy qRqlAMdgSAqeF533 IHRvcDsnPlBhdGllbnQg OsKaZKh0C6XhQkv4XEAj kQzpOP9zqFSkMNfpZt2v lPxifLskSJ1dGJNn dejxf239MdEnn5tnDKZv pLLvQMujGZF6J75nf4X6 TDRhPROlPRZ8oYU5dI7u bGlnbjogbGVmdDsg vnVmpVyfLOdzBZbwG199 IHRvcDsnPkJpcnRoIERh xBZ6TH07BK16pPWbc9A6 yQU2B4VmDQEtmonk ybejzLE6FLSwTAAdfW50 Qq5gnPngHe2wEGUwAGQ0 NGBjmMLyZ7CewV2pRkZv CQNmBMNiP7VseCJb GVriU609NVqcEnZ1FDLq ocBgY8JnYIKgiVvvHcT9 i9P1Pm6WR3J2HD70GV15 sMZal6Y3tRL3Y4Lv ILEqbotnhawvgMK0VXIf QHGwiQ23Rm4gsPgqIa2v BGJxLAQ8AJMjiLZqB8Zf oW1pKbHaZBSfDXRo B1XclCVvURnhF930JKpn ZhA2BARgvmWyE3TcWZCj lTkpVcL6b7N1Yv8VXQi2 RU23MQ22dKSvb4L1 qIO0K7PpWHYlvqytcnin eNG9XGIzYUJhqW47Ys1j lAtpDj7pNDPqSHF9TTDl fVCxW2HtvD5gKpUg SEQpOTHzR2DrsWImBOvt M920FJqnIzB2VKOqscNx E7MePRKklGnlPzO7r9J3 Bv8OQUMfLU38SBD8 cEW0TI11TR86Y3UzZbiv dGFibGU+PHRhYmxlIHdp ZHRoPScxMDAlJyBzdHls NS4rQt6bEHYjERPb gEsuqFTcRxYhh0hmPCIw OAzpZT3yzRfzS4IwmFT9 LFGsp7r5Oh00M24bZ3Ce dXA+DHXriFT2pNT6 xC2uEyHeKdQ3ORkdV786 QpCazTYiWepuz4kyb3qz cKy4MzT0QCIkquOskCfr KTT5u0VeLj66K84l IHdpZHRoPSIxNSUiIHZh xKxxmk3dpA7kIl5+PGNv fXT7wCX1lX7pKlSrRaX5 FDibO695QnBiaVIs Lcykv6qhd8swuIl1RvFe NWSwbzTvtAufKTR6n8Ae Zo46O4GurBagj0CoGwc9 ql62bHFuz1O6gDG5 W7FiARJmmzcklPHxiJjy YK8xXHWrqymfKNPeqF4e LZQtW4j0CcOwNdL2PYbo X7ZyadM3OSBzuLIz KXniJGB7I20si8R9RMCt PZGaIOT4oFR5cW3ahVkm bjogbGVmdDsgdmVydGlj XVruTIwxD240HTMq dZujZMLujK8jWCMcwPMv eKieSV0eFZZpbpfhFsCK R7RON96LUCRRM0ILOzAk SNuMMO38G1YjWzt9 KQVeeJsxPK4akPPbZRbl Bj1pjHqqnWisZQ5wYGPh pmjqUFBkcW6nPDRxkZLb dMzcBE2lTUZscvpw n147IcJyQAL2JSPucIDz H0XzzP5xCiAlSGFtLQIc A1WgfHMvEZrnD623IEmg AsO7RLSkngRbQ4Ou KCYpqEggCiD2z1T9Wx0v MK9yBz8iRCK4TV42ED37 oGEek8X0bVY2K1QrYMWe bafzsbvocMN7GQNb FQEapX81nQAoOPjjCz5i w9Z7b482CTUzEJQsgY94 Ig1pkSkfDDGhuQUQsD9u frmnj3lcbazbGxFu WGWxAJu6FKx0DLIxkNts PhKeMHO8PvG4TVV8jQPv nJ5onGjmhsvxgR1pZkl+ LYSnHGHinuZ6R6Qe Mrw1VFZwmVnwPC3hyKYc UIddMv2rdZxjkAekLG5c MSPwfwkbMKXbgR6uEJTb gLVdxGruME6bHFOn ylmjd344PcXdSMP1XXKn hMYbZ1ZpkN7xPuExJGPv AJRzD5ZcwQCaJDjcU615 NKuzKdC7ZNZdbzUw X7MvKMMnbRhmGpH2w0H1 Vk6OGEtITC92TV72gDEo h9J7uBE8D6DhEAFvmqcm srkwlAA0LQMmRKXw mF70eGQiXFxyIs1sp4M6 m651PQKlEDFlhD88Zu0n aMchXCRtjMQThV8sevve l0aaoicwKxBxVVOa WFm9MSy0ORAejAsnZxRl SKS9NhR5NTZ0jNAnmJ0i kRfycyfwxF1uLtr+RW1l gdeohhY7BX08KQ91 G1NdIgevbZSwkIL+PHRh YmxlIHdpZHRoPScxMDAl IhYiuVsxEN1pIj7fVLPs LWNvbGxhcHNlOiBj k1zpCWOlKAbcYC2djHyj P0CkdOE0SPNef5v4Tb91 B41hO7YcaEV+PGNvbCB3 yIP3tR4eOnQySsI4 SLhzA121YcGuxVTgZsgi s8jsy8wwgDt7HdEtBESy qeLfhEchWFR7m2OhGi49 C21aFFudQMSwANQl HJBmMTIlwCvzoa0alU9a Ii8+ZBJszJM0gLH5eN7l PzBtSyF3TPmkN110TyIz mKCvRunaI42gW1Oe dXA+RFSvUsy0UYJkcKaj PZ3rpBIrYNtmYu6eDVS2 HyEuOgOjULpjH3FaCIMj dunxvgtoxQS6CTEw AGRadR40Mt3xwIrmNz2w YZEwZLR2AGOpbXAvS2Fh wP6aOpOfYMQbKMZfY1Ev tCIcATlfY037QJgb HeQ9ENKwzzWcY2PeJCYd cJhwJhT8u8V4Wp3KnKzj iYAjEG7pWmXuNWh9W7Ws Tnc5EAWdzUjaNI7j qENsZQrwTw9riUmsxAha BU2nZQOylqrph851NcTh d7pfFPEwoBGaNOpcBUV2 D75bo2I4RUEtSVZw TLL6oDE3yL3guZmpbqhd bGVmdDsgdmVydGljYWwt EZeqP274DVAcmPzdZwHA Zxg1Z1ShDer1YBYe yTgoUP1hiAErHNrwBf5a nVzddMtsRO1bQTNazrsh m889YyJkz7ooQRMhwFVx CKzwNWT7H72kf5G7 GDApEJQyXON9gZI0hW1x bGlnbjogbGVmdDsgdmVy uLyoDPizDQjdM042RTUo iYtuUx3FIqh7Z1Tq Ppb2SUTzrMqgUX6yaCSt XWhiRo4uxFzhsCulRK9r DZSnwyfya069XqWrg5cw IDEwcHQgVGltZXM7 B87zs7V9CLFcLGRgEFI2 iIB6lM9ybNvuomwdjSPl dDsgdmVydGljYWwtYWxp D706AXCfmWnwYtWu eWVyOjwvdGQ+JS10ll62 N2RoXknaPih0WGUgCBK7 wVR7wZ7zHZCsCHtef5L0 iLW0Z7FlidVcqz3c b2x (more content not included)... [facility] Coding Summary HTMLBase 64 PinoksejFEc6mDi+PGhl YWQ+EB8DBTNwM85khQIw eD8DW3hIJT9OQOLDIZQT AB4GMD0akSE6YQffC4Sk biAv VjgedXXmUI66DLd5HZO6 oJirZPhwwM1hmDUiP6i5 EpWfZI66nS63PLkzRMTd MzO1VkZolccgdISk N2asEwNzrPPeKiw+PHRh YmxlIHdpZHRoPScxMDAl YoTltZboUX1gAn5tBZXg LWNvbGxhcHNlOiBj n5jnIAVmMUnxCB0rcAyx S1VhtLK4HJQyz7a8Lc82 dHI+ITNvICK3aNnwFXkh c691SeUxn6epKUA4 sNTnCXxaZYS7I90hv2P5 SJKzMPWsCUJ8vDM7lM8h mBtwngtmL2BocGWcVhN8 MYD9wJSdoU2ciFqb vvujzM1jPwr+C05ZKL0U JZYVFL0UCzl7C2KoRhht dHI+EJ95GUKzCI58cZKb xYKga5oaaTj5XlNu GXVgQSK2lUpiRGyqn7Lv FFWiY64xfZJlq8Y2QSGs bDyukTHjAwRmtLT0sB9d CNitvbhxm1iwwalk Pfzsf7hyrk36zR71R70m ZPhpODNhNXC0MHXlOYBj uCvodt4orX0lUq2+IDxj b3elb2fekHh1DiDd BNPesyMeiPbeACY3v1Vl Bk47Q3YexBweo8SzPnx2 in15kMRfh0T8sHL0BRua MEWieN5tYBxwBtL6 VYTpQmAkxB77dACyLFbp Ou5qfQlvuCxbOV5rIOHi evfsEYOzrN1cLSUqzSOg pGtrMW5cJZCyhxrc y654LrYuMBT8LKRzjXLa U7HriI6qHoFhNKBbJFLc C6VgxRQoYCizV724JYel FoQ6UZMtkhIgZ3Tq CAKdhAglWiJ9i8H4Fw7C m6YzkzvpKTD4VWduBLC6 BcI8YsAoAgJ1B5EcNcz8 ZAJghQzoFR8xN9Cb HACnkpcmxrcjnZY3DSSq TUVxqK38wLUoNVtpAw0i m7R1v008PBIxUFWbfG00 Gv8lwCszVLUuwBDI sL9qduyem5vqevmjSaOo RGZkGSt8FOs3PVDyxFcu ClTrMSA2LtH2UJZ8pXYq lC3oqZexsfxipK6d Oyc+P84mkA1jDLA8AEG5 frwxEWMmawYrSL58ZE20 I4AjTyxtmTVpkCG+PGRp atJsuCyaXH5sEtHc p0dvs4LxBGvaQ2UcTTGh BSviJyc7XAItJPR9jFK5 dW5wQISgRKqnt3N0kEE1 U9BfifFqjc6pw5uu XRWuQNhiS79jlPHfk6I4 MUTjdRY8YPEwkGzrUeLf fG72Rel+KQWzdMbmt9Gy Zqvxy6mzr0stuPa5 IjMwJSIgdmFsaWduPSJ0 j3IqQy63X08nXCikZKAl GEMtEKZlOQJzkTdcxg4o jZ9aLc3+PGNvbCB3 hNK4sH2zWTGcQrC8LVrx D958EjOdcIZrGhlsj8ua d4ecuMt8DlLdBCGqvhYr yCelGLE8j2QdWc34 X98wMSpwOFHnABAfKIYr BAIzoJgnic0kaP2wVd5+ GZ6xt5tihr31tI51eFE+ XXEuHIL8rThoFGso PHDpdJ5nNBziFxX1JKUk GqMlcL98eAMsYSbiOp1m mOfgeUpsGO6bLTUepopa f482NpKrj9yuUXGm cPJzGFimJRB2M59vr9P9 WHXgEQOaYMC8jDH3aU6h bGlnbjogbGVmdDsgdmVy cMwjMAlkGOvkW000 IHRvcDsnPlBhdGllbnQg MqAgGSp6J2FxTgx4BZBq uUpuRR3bvGQuUSteTj3y fDhomOtiGQ2fVLHn xfmgl944GsQka2evYEIz nYJnYFhwEWR0W05ei2T4 DQJyBHWiMUH4uCO4xO9s bGlnbjogbGVmdDsg wnCauWmuWYapOSsmM283 IHRvcDsnPkJpcnRoIERh lCU6IU63YI07wFShw5M8 uAK4F3HrCHMkowlr cxznfAL4RMVwRRGipY95 Ig5pfTmrGa8bXLSrVYD8 HVQzoOGaH5MizB5fXmZc GJVfRSNrC2VeoBKb GFrvJ320QAeyWqK9PZKw hvWfK0FgWRMsnOgdShN4 l2P2Xz4EE0Z3YM97XY72 sVOfx2R7wHN7K8Zv PHAhsjdywsivyCJ8QFDo CUHywR69Hl5yjNmnPz1i JVTpLNC4KPBkqWOmQ1Hc fK3iUaKxRMOiFIZh X4RdnKQtLUgkL455KSeh CgV7XLGzwvLcC6JpXFDk rSnyFbK9y6Y0Vu6IWVa2 WA02RP94mFAzg2Q7 uKN1X8VnWQYwjeyxygia pUT2ZXUfAYVhbX50Gj9p rMikKq7rHRKeNWT9AFBr gHPbK8JluI8eBvPg OTZeSVKbN1NwcBIbHGwi S306KEufBvT5XLKxjyMl T9BiIKLgbTvoEpP5j7R9 Pd6KCARyYM76FME2 jJK4QA31ZU58L7RkUvuv dGFibGU+PHRhYmxlIHdp ZHRoPScxMDAlJyBzdHls KY9zLq9rKPLzIFCv mKcewVYhKkSoz8jsKUAj FQnuZW8fsCiaU2EezOU6 TZIlg0c2Ox33F31bJ8Wv dXA+QLRbxDZ1xIM5 nR8yUcQoSwX1QGjhZ705 WtOboWVwCisfo8wtj6gh gTn5IkO6QHNdlcAhiNtz TEG2x2YeQj07I90h IHdpZHRoPSIxNSUiIHZh lRjpfd3zfJ8iSl7+PGNv bDH8aPX8sP0pCmPzZmV6 GKzvZ734GnYfqRSw Twhfl3ffi7wbrLf8AoUt EFWambZffIfsJSA4g7Kg Av88U8BimHtve6MuIhi0 tb49eAWgx6M4jLD7 O8NxIRFifuixkBEljTgz PX2bRYNbafvgQGCvwT4d VZUpB0r3ZyToVyJ9RHxv C6AfzqV6UYQtiRKh NPugNYB9O99ns9Y8UIPm DBIfPHJ4aOY3aS9idDrt bjogbGVmdDsgdmVydGlj YNnyNSkkL741VVMq xLhxBWYhaI5dDZOrdINy sBlcHI0lFHLewvezYuBK V6ZXK73RDHIXL1THKkBa PLhNMB07M0RgZez8 GWJjpXaxVR9dxVCqYSfd Ef3avQiowOdqOW2hEALt thvrCJCgdA4bZOOqmIHs gRytMR6kEWDffomd i266DuZoGAF9WWKwlPBy V0XytZ8vUwGrSQCkBYCn D5GldDXbQCnbF647KNwo WaC8JEWnhjCpB1Ya VHFwoEctUrS8e9M5Rb6n PA4pQa7jYJL1GZ41ML60 rJKee8Z1rQG1D7CdSAVk aytzaewxnEE3PEKo RMJlvQ83pLIjAUjyOh5u e7V6m514QXEeVHZzlP82 Ui4uxIihXREhlEWVwO1x mzaqc3ylfdynOvRd RKFhPZa6EYe0LXItuYrn JjMnNBL5UnP2NJI7kJVb yS9geRvmuikbfR4zKcd+ BQNmQAHqufJ1E4Uo Hyi7RTLbxVltTT6lsCKu LZcdNu7svJuauOkhGF0n FVCzycgoTSMkoX7hUDJs bARwqUdsTW3lCTNy wovoc997OnRtLXA3URLt hKRwB4LmjB9jMuYpRNNx ADMcR4LbqQWwDDbjL718 JSkfRrU1DQXnptTe N2CyHDBxtOpgJbF6o1S5 Gy5MPOlSAK70WG35uQGi u6D4rZC2J6RvKKElttxi enxiuUB3UIBkRVKe sA47fMHxACchJd6uc9R6 v635DZSkLFWduX67Qq4v wHkbCJZyvQWNiD5jtdke w6azwujjJmQxLCLz PEu8PGx4OUPgjNaoLmKz SJL1ZmV3BIF2mANwxU6d kVelieidcO5gIzs+RW1l zsjytvQ6RY73SV08 F7PhCpudiFSrgLE+PHRh YmxlIHdpZHRoPScxMDAl YiSunUcdKP5kHl7kZPUz LWNvbGxhcHNlOiBj s4pwLDQsWLqaHV2qtHyb K3SepCO9LFHem3e4Wd14 W37fT7HfbWU+PGNvbCB3 kHW1sL9oLcPjJbN6 RFgwN447VvNuyBZkPlxn d3jse0eyoRw1GaTpSREr uxRbqAxfFTN4c1NtRw28 S67lRDlbLDMqUZXo MFOhVJTwlGmslx9uoP6j Ii8+GBHljVY3hSW1aV0o AmQbIsD2NNqnF577OyHh sQGzGpelB21hF2Cg dXA+RCAbXlz0JUEbiSea GU8zrCBnJVcpVw5dOUY5 HwDwZgMiWNflO5LoAFRb obldczupuEJ9LGSu LHJcvS79Ld3qaXbxFd0n CCPjSNI5TIKaxRBrV1Es cQ9jOqWzNXNiUMBfU2Qs pJSeNBfdC429AFsg NzF0TVChglQwV2BaIZLs mEpyLxA7v5V2Ur2RbSim pETaIA4nTpXuFVe8W9Gd Czz4FYAffNorHZ8k eTMcOBcdMf5svDihjZfq PV0jRFLmrfmuj500TdWd t3onUTQveFOfZIxhNRB2 D98lj2P6INJjVMWd PCF2kAC3cX9taBfcvlpv bGVmdDsgdmVydGljYWwt FWrvA133JBXmyWawVyMU Reg4H5QlJpj3NIVt qRgjRR2gwLHuQQmoWo8k nHcyuVspHK1mAVDoffhn b834EoGpg9juCYYmkQCv KFovLID9J94tz2M2 ZEQeURCbPFJ8mLH3aU3l bGlnbjogbGVmdDsgdmVy xFehFNfnUHeaF235VUMb jPuoRn6CRhx1X5Sk Uih1VXMwmYgfAS5fkXKn WKqbIo9cuUgecVdlIE9k ZIZzzuvga221BfWmv9ja IDEwcHQgVGltZXM7 Z94ei1P4FWJrDOTfEEM3 gAI7mF9rwDhjoheboFNs dDsgdmVydGljYWwtYWxp Q318FCVafXokIiDt eWVyOjwvdGQ+OL14ah53 G1ThGqmvRkh0ISPoGCS3 aBM1lU8nGHDgGLpkr9O6 rZA4S1DeorTtqj6p b2x (more content not included)... Normal [facility] ED Clinical Summaryon 2020 ED Clinical Summary [facility] - Emergency Department [address] [place], [place] [id number] ED Clinical Summary PERSON INFORMATION Name: ROSA EASTMAN Age: 55 Years Sex: MALE : 1965 MRN: Acct#: Visit Reason: Hand pain-swelling; RIGHT WRIST PAIN Arrival: 04/01/2021 19:05:43 Discharge: 04/01/2021 19:35:00 LOS: 000 00:30 Check In: 04/01/2021 19:05:43 Checkout:04/01/2021 19:35:00 Address: [address] [place] [address] PCP: Provider, None PROVIDER INFORMATION Provider Role [...] Follow-Up: With: Address: When: Andrew Mckenzie DO [address] [place] [id number] Within 3 to 5 days DIAGNOSIS: 1:Sprain of right wrist Patient Understands: Yes - Patient/family/careg iver verbalizes understanding of instructions given Comment: Normal [facility] ED Patient Summaryon 021 ED Patient Summary [facility] - Emergency Department [address] [place] [id number] PATIENT DISCHARGE INSTRUCTIONS Patient Information Name: ROSA EASTMAN Age: 55 Years Date of : 1965 Reason For Visit: Hand pain-swelling; RIGHT WRIST PAIN Arrival Time: 04/01/2021 19:05:43 Primary Care Physician: Provider, None Attending Physician: Medhat Hernandez MD Comment: Visit Diagnosis: Diagnoses This Visit Hand pain-swelling ([id number]) Sprain of right wrist (S63.501A) Prescription Information: If you have been given a prescription for narcotics, seek immediate medical attention if you have any difficulty breathing or any sudden status changes such as confusion and sleepiness. If you or anyone you know is experiencing suicidal thoughts, mental health, alcohol and/or drug addiction problems; contact the [facility] 02/06 Crisis Hotline -Text 4HXAY lc 970803. If you received any narcotics, sedation, or [...] With: Address: When: Andrew Mckenzie DO [address] [place] [id number] Within 3 to 5 days Medication Information: The exam and treatment you received today in the [facility] Emergency Department were for an urgent problem and are not intended as complete care. It is important for you to follow up with a doctor, nurse practitioner, or physician?s trust manager assistant for ongoing care. If your symptoms [...] so we can reach you if necessary. [facility] Emergency Department has provided you with a complete list of medications post discharge. Please inform your commercial field inspector/provider of your visit and for further instruction on these medications. Any specific questions regarding your chronic medications and dosages should be discussed with your primary care physician(s) and/or pharmacist. Medications to Continue That Have Not Changed Other Medications acetaminophen-hydroc odone (hydrocodone-acetami nophen 5 mg-325 mg ([place] 5)) 1 tab(s) Oral Every 6 hours [...] With poor (more content not included)... Normal [facility] Vital Signs Date Time Vital Sign Value Performing Clinician Facility 03-23-2025 13:13-0400 Body height 172.7 cm Charmaine Lowe PA Work Phone: [facility] 03-23-2025 13:13-0400 Body mass index (BMI) [Ratio] 31.02 kg/m2 Charmaine Lowe PA Work Phone: [facility] 03-23-2025 13:13-0400 Body weight 92.53 kg Charmaine Lowe PA Work Phone: [facility] 03-23-2025 13:13-0400 Diastolic blood pressure 86 mm[Hg] Charmaine Lowe PA Work Phone: [facility] 03-23-2025 13:13-0400 Systolic blood pressure 130 mm[Hg] Charmaine Lowe PA Work Phone: [facility] 12-28-2024 13:00-0500 Body height 172.7 cm Charmaine Lowe PA Work Phone: [facility] 12-28-2024 13:00-0500 Body mass index (BMI) [Ratio] 30.87 kg/m2 Charmaine Lowe PA Work Phone: [facility] 12-28-2024 13:00-0500 Body weight 92.08 kg Charmaine Lowe PA Work Phone: [facility] 12-28-2024 13:00-0500 Diastolic blood pressure 78 mm[Hg] Charmaine Lowe PA Work Phone: [facility] 12-28-2024 13:00-0500 Systolic blood pressure 132 mm[Hg] Charmaine Lowe PA Work Phone: [facility] 12-14-2024 14:15-0500 Body height 172.7 cm Hilario Small MD Work Phone: [facility] 12-14-2024 14:15-0500 Body mass index (BMI) [Ratio] 31.02 kg/m2 Hilario Small MD Work Phone: [facility] 12-14-2024 14:15-0500 Body weight 92.53 kg Hilario Small MD Work Phone: [facility] 12-14-2024 14:15-0500 Diastolic blood pressure 78 mm[Hg] Hilario Small MD Work Phone: [facility] 12-14-2024 14:15-0500 Heart rate 91 /min Hilario Small MD Work Phone: [facility] 12-14-2024 14:15-0500 Systolic blood pressure 136 mm[Hg] Hilario Small MD Work Phone: [facility] 09-06-2024 13:16-0400 Body height 172.7 cm Candida Sidhu PA Work Phone: [facility] 09-06-2024 13:16-0400 Body mass index (BMI) [Ratio] 32.54 kg/m2 Candida Sidhu PA Work Phone: [facility] 09-06-2024 13:16-0400 Body weight 97.07 kg Candida Sidhu PA Work Phone: [facility] 09-06-2024 13:16-0400 Diastolic blood pressure 80 mm[Hg] Candida Sidhu PA Work Phone: [facility] 09-06-2024 13:16-0400 Heart rate 59 /min Candida Sidhu PA Work Phone: [facility] 09-06-2024 13:16-0400 Respiratory rate 16 /min Candida Sidhu PA Work Phone: [facility] 09-06-2024 13:16-0400 SaO2% (BldA) [Mass fraction] 99 % Candida Sidhu PA Work Phone: [facility] 09-06-2024 13:16-0400 Systolic blood pressure 120 mm[Hg] Candida Sidhu PA Work Phone: [facility] 12-09-2023 15:33-0500 Body height 172.7 cm Hilario Small MD Work Phone: [facility] [employer] [facility] 12-09-2023 15:33-0500 Body mass index (BMI) [Ratio] 31.02 kg/m2 Hilario Small MD Work Phone: [facility] [employer] [facility] 12-09-2023 15:33-0500 Body weight 92.53 kg Hilario Small MD Work Phone: [facility] [employer] [facility] 12-09-2023 15:33-0500 Diastolic blood pressure 78 mm[Hg] Hilario Small MD Work Phone: [facility] [employer] [facility] 12-09-2023 15:33-0500 Heart rate 79 /min Hilario Small MD Work Phone: [facility] [employer] 12-09-2023 15:33-0500 Systolic blood pressure 130 mm[Hg] Hilario Small MD Work Phone: [facility] 02-20-2023 14:00-0400 Body height 172.72 cm Josué Evangelista Other [employer] Other 02-20-2023 14:00-0400 Body mass index (BMI) [Ratio] 32.08 kg/m2 Josué Evangelista Other [employer] Other 02-20-2023 14:00-0400 Body weight 95.71 kg Josué Evangelista Other [employer] Other 02-20-2023 14:00-0400 Diastolic blood pressure 80 mm[Hg] Josué Evangelista Other [facility] [employer] Other 02-20-2023 14:00-0400 Systolic blood pressure 130 mm[Hg] Josué Evangelista Other [facility] [employer] Other 01-22-2023 09:40-0400 Diastolic blood pressure 84 mm[Hg] DO Britt Rumschlag Work Phone: [facility] 01-22-2023 09:40-0400 Heart rate 70 /min DO Britt Rumschlag Work Phone: [facility] 01-22-2023 09:40-0400 Respiratory rate 16 /min DO Britt Rumschlag Work Phone: [facility] 01-22-2023 09:40-0400 SaO2% (BldA) [Mass fraction] 96 % DO Britt Rumschlag Work Phone: [facility] 01-22-2023 09:40-0400 Systolic blood pressure 136 mm[Hg] DO Britt Rumschlag Work Phone: [facility] 01-22-2023 08:47-0400 Body temperature 98 [degF] DO Britt Rumschlag Work Phone: [facility] 01-22-2023 08:12-0400 Inhaled oxygen flow rate 10 L/min DO Britt Rumschlag Work Phone: [facility] 01-22-2023 07:35-0400 Body height 172.72 cm DO Britt Rumschlag Work Phone: [facility] 01-22-2023 07:35-0400 Body mass index (BMI) [Ratio] 32.4 kg/m2 DO Britt Rumschlag Work Phone: [facility] 01-22-2023 07:35-0400 Body weight 96.8 kg DO Britt Rumschlag Work Phone: [facility] 03-13-2022 11:45-0400 Body height 172.72 cm Harvey Holt Other [employer] Other 03-13-2022 11:45-0400 Body mass index (BMI) [Ratio] 32.23 kg/m2 Harvey Holt Other [employer] Other 03-13-2022 11:45-0400 Body weight 96.16 kg Harvey Holt Other [employer] Other 01-14-2022 14:30-0500 Body height 172.72 cm Harvey Holt Other [employer] Other 01-14-2022 14:30-0500 Body mass index (BMI) [Ratio] 32.23 kg/m2 Harvey Holt Other [employer] Other 01-14-2022 14:30-0500 Body weight 96.16 kg Harvey Holt Other [employer] Other 09-19-2021 11:00-0500 Body height 172.72 cm Harvey Holt Other [employer] Other 09-19-2021 11:00-0500 Body mass index (BMI) [Ratio] 32.23 kg/m2 Harvey Holt Other [employer] Other 09-19-2021 11:00-0500 Body weight 96.16 kg Harvey Holt Other [employer] Other 09-19-2021 11:00-0500 Diastolic blood pressure 87 mm[Hg] Harvey Holt Other [employer] Other 09-19-2021 11:00-0500 Systolic blood pressure 130 mm[Hg] Harvey Holt Other [employer] Other Encounters Encounter Date Encounter Type Care [...] MD Facility: [facility] Start: 09-06-2024 End: 09-06-2024 [employer] Candida PUENTES Work Phone: [facility] [address] [facility] Start: 09-06-2024 End: 09-06-2024 [employer] Candida PUENTES Work Phone: [facility] [...] End: 06-28-2024 ambulatory Richard Lezama MD Facility:[facility] Start: 04-22-2024 End: 04-22-2024 ambulatory CANDIAD SIDHU Not Available Start: 04-19-2024 End: 04-19-2024 ambulatory Richard Lezama MD Facility:[facility] Start: 03-15-2024 End: 03-15-2024 ambulatory Richard Lezama MD Facility:[facility] Start: 12-09-2023 End: 12-09-2023 Office outpatient visit 15 minutes Hilario Small MD Work Phone: [facility] Comment on above: Benign localized pro static hyperplasia with lower urinary tract symptoms (LUTS) (Primary Dx) Start: 10-15-2023 End: 10-15-2023 [facility] Start: 10-14-2023 End: 10-15-2023 ambulatory [facility]ITT [facility]CHLAG [facility] Start: 03-04-2023 End: 03-05-[address] DOCTOR GARCIA Facility: Start: 02-28-2023 End: 02-28-2023 ambulatory Josuéadelaida Evangelista Other [employer] Other Start: 02-28-2023 Telephone encounter Josué Evangelista [facility] Start: 02-20-2023 End: 02-20-2023 ambulatory Josué Evangelista Other [employer] Other Start: 02-20-2023 Postop follow up vis it related to original px Josué Evangelista [facility] Start: 01-22-2023 End: 01-22-2023 Admission to same day surgery center DO Britt Rumschlag Work Phone: [facility] [place] Start: 01-22-2023 End: 01-22-2023 ambulatory Josué Evangelista Facility:[facility] Start: 01-22-2023 End: 01-22-2023 ambulatory DO Britt Rumschlag Work Phone: [facility] Work Phone: Start: 01-13-2023 End: 01-13-2023 ambulatory Josué Evangelista Facility:[facility] Start: 01-13-2023 End: 01-13-2023 ambulatory DO Britt Rumschlag Work Phone: [facility] Work Phone: Start: 01-13-2023 End: 01-13-2023 Patient encounter procedure DO Britt Rumschlag Work Phone: [facility] [employer] Work Phone: Start: 12-06-2022 End: 12-06-2022 ambulatory Josué Adelaida Evangelista Facility:[facility] Start: 12-06-2022 End: 12-06-2022 Patient encounter procedure DO Britt Rumschlag Work Phone: [facility] [place] Work Phone: Start: 08-10-2022 End: 08-10-2022 ambulatory [facility] Facility: Start: 07-08-2022 End: 07-08-2022 ambulatory Candida Sidhu Facility:[facility] Start: 07-08-2022 End: 07-08-2022 Patient encounter procedure [facility] [address] Start: 06-21-2022 End: 06-21-2022 ambulatory Candida Sidhu Facility:[facility] Start: 06-21-2022 End: 06-21-2022 Patient encounter procedure [facility] [place] Start: 03-13-2022 End: 03-13-2022 ambulatory Harvey Holt Other [facility] [employer] Other Start: 03-13-2022 Office outpatient vi sit 15 minutes Harvey Holt [facility] Start: 01-14-2022 End: 01-14-2022 ambulatory Harvey Holt Other [facility] [employer] Other Start: 01-14-2022 Office outpatient vi sit 15 minutes Harvey Holt [facility] Start: 10-16-2021 Admission to [facility] surgery center Harvey Salcidocamilo [facility] Start: 10-16-2021 End: 10-16-2021 ambulatory Harvey Holt Other [facility] [employer] Other Start: 09-19-2021 End: 09-19-2021 ambulatory Harvey Holt Other [facility] Other Start: 09-19-2021 Office outpatient ne w 45 minutes Hravey Holt [facility] Procedures Date Procedure Procedure Detail [...] Influenza vaccination Influenz a Vaccine (Season Ended) [facility] Start: 06-09-2025 End: 06-09-2025 Patient encounter procedure 06/09/2025 11:20 AM EDT Office Visit [facility]TH[facility] ELLIOTT [address] [place] [id number] Charmaine Ackerman NP [address] [place], [place] SAMANTHA ELLIOTT Start: 03-23-2025 End: 03-23-2025 Patient encounter procedure 03/23/2025 1:00 PM EDT Office Visit SAMANTHA ELLIOTT [address] [place] [address] Charmaine Castro PA [address] [place], [place] [id number] Arrived SAMANTHA ELLIOTT Comment on above: Arrived Start: 02-01-2025 End: 02-01-2025 Patient encounter procedure 02/01/2025 12:40 PM EDT Office Visit SAMANTHA ELLIOTT [address] [place] [phone] Charmaine Castro PA [address] [place] [address] SAMANTHA ELLIOTT Start: 01-25-2025 End: 01-25-2025 Patient [...] Office Visit [facility] [address] [place] [address] [place] [address] Hilario Small MD [address] [place] [address] [id number] [facility] Start: 12-09-2024 Adult BMI Screening Adult BMI Screen ing [facility] Start: 12-09-2024 Tobacco Screening Tobacco Screening [facility] Start: 12-08-2024 End: 11-08-2025 Prostatic specific antigen, diagnostic Prostatic specific antigen, diagnostic Lab Routine Benign localized prostatic hyperplasia with lower urinary tract symptoms (LUTS) Expected: 12/08/2024 (Approximate), [facility] Comment on above: Expected: 12/08/2024 (Approximate), Expires: 11/08/2025 Start: 09-06-2024 End: 09-06-2024 Patient encounter procedure 09/06/2024 1:20 PM EDT Office Visit [facility] [address] [place] [address] Candida Sidhu PA [address] [place] [address] [facility] Comment on above: Arrived Start: 07-11-2024 COVID-19 Vaccine ( season) COVID-19 Vaccine ( season) [facility] Start: 07-11-2024 Influenza vaccination N [facility] Start: 03-10-2024 Tobacco Counseling Tobacco Counselin g [facility] Start: 07-11-2023 COVID-19 Vaccine ( season) COVID-19 Vaccine ( season) [facility] Start: 07-11-2023 Influenza vaccination Influenza Vacc ine [facility] Start: 01-22-2023 End: 01-22-2023 [facility] Start: 07-08-2022 MRI of head MR head/brain wo con [facility] Start: 07-08-2022 End: 07-08-2022 Patient encounter procedure Departed Clinical [facility] [address] Start: 2017 Administration of varicella zoster vaccine Zoster (Shingles) Vaccine (1 of 2) [facility] Start: 1986 DTaP,Tdap and Td Vac cines (1 - Tdap) DTaP,Tdap and Td Vaccines (1 - Tdap) [facility] Start: 1985 Adult BMI Follow Up Plan Adult BMI Follow Up Plan [facility] Start: 1979 Depression Screening Depression Scre ening [facility] Start: 1967 Screening for malign ant neoplasm of colon [facility] Start: 1967 Tobacco Counseling Tobacco Counseldot driscoll [facility] Patient referral [facility] Work Phone: Immunizations Immunization Date Immunization Notes Care Provider Augustus villanueva 03-07-2021 COVID-19 mRNA, Comirnaty (Pfizer) [facility] 02-14-2021 COVID-19 mRNA, Comirnaty (Pfizer) [facility] 12-08-2020 influenza virus vaccine, unspecified formulation Candida PUENTES Work Phone: [facility] Payers Date Payer Category Payer Unknown 2022 Medicaid [id number] 2022 Medicaid [id number] 2022 Self-pay [id number] 1967 Unknown [id number] [id number] [id number] 1967 Unknown [id number] [id number] [id number] 1967 Unknown [id number] [id number] [id number] 1967 Unknown [id number] 2.16.8 40.1.802175.3.579.2.173 1965 Unknown [id number] 2.16.8 40.1.241664.3.579.2.173 1965 Unknown [id number] 2.16. 840.1.938702.3.579.2.196 1965 Unknown [id number] 2.16. 840.1.644460.3.579.2.196 1965 Unknown [id number] 2.16. 840.1.240950.3.579.2.196 1967 Unknown [id number] 2.16. 840.1.491074.3.579.2.196 1967 Unknown [id number] 2.16. 840.1.527323.3.579.2.196 1967 Unknown [id number] 2.16. 840.1.269567.3.579.2. 1967 Unknown [id number] 2.16. 840.1.031964.3.579.2.196 1967 Unknown [id number] 2.16.84 0.1.217433.3.579.2.1259 1967 Unknown [id number] 2.16.84 0.1.007161.3.579.2.9 1967 Unknown [id number] 2.16.84 0.1.736078.3.579.2.9 1967 Unknown [id number] 2.16.84 0.1.458373.3.579.2.1259 1967 Unknown [id number] 2.16.84 0.1.590896.3.579.2.9 1967 Unknown [id number] 2.16.84 0.1.797342.3.579.2.1259 1959 Unknown [id number] 2.1 6.840.1.627208.19 Unknown [id number] 2.1 6.840.1.096895.19 Unknown [id number] 2.16.8 40.1.817407.3.579.2.531 Unknown [id number] 2.16.8 40.1.570866.3.579.2.531 Unknown [id number] 2.16.8 40.1.174700.3.579.2.531 Unknown [id number] 2.16.8 40.1.090088.3.579.2.531 Unknown [id number] 2.16.8 40.1.900427.3.579.2.531 Social History Date Type Detail Facility Start: 04-23-2024 End: 02-01-2025 Sex Assigned At [facility] [employer] Other Start: 10-16-2021 End: 01-22-2023 Tobacco smoking status NHIS Smoker (finding) [facility] Start: 1965 Sex Assigned At Male F [facility] Start: 09-10-2022 End: 04-23-2024 Tobacco smoking status TNIS Smokes tobacco daily [facility] History of tobacco use Cigarette Smoker [facility] Start: 04-23-2024 Tobacco use and exposure User of smokeless tobacco [facility] Start: 04-23-2024 End: 02-01-2025 Alcoholic beverage intake Current drinker of alcohol (finding) [facility] Start: 04-23-2024 End: 02-01-2025 History of Social function [facility] How often to you hav e a drink containing alcohol? Monthly or less [facility] How many standard drinks containing alcohol do you have on a typical day? 1 or 2 [facility] How often do you hav e 6 or more drinks on 1 occasion? Less than monthly [facility] Start: 1965 Sex assigned at Not on file P [facility] Start: 09-10-2022 Tobacco use and exposure Smokeless tobacco non-user [facility] Childcare Unknown [facility] Start: 05-03-2021 Alcohol Comment OCCASIONAL [facility] Start: 07-12-2015 Sex Male (finding) [facility] Medical Equipment Procedure Code Equipment Code Equipment Origin al Text Equipment Identifier Dates BONE 7MM DUO FORTITUDE SERIES FDA Start: 10-16-2021 Spinal fixation plate, non-bioabsorbable ()[id number] FDA Start: 10-16-2021 Bone-screw inter nal spinal fixation system, non-sterile ()[id number] FDA Start: 10-16-2021 Bone-screw inter nal spinal fixation system, non-sterile ()[id number] FDA Start: 10-16-2021 BONE 7MM DUO FORTITUDE [...] Review Audit Reviewed by Stef Berg MA (Director Of Financial Aid) on 03/23/25 at 1314 Medication Order Taking? Sig Documenting Provider Last Dose Status cyclobenzaprine (Flexeril) 5 MG tablet [id number] Yes TAKE 2 TABLETS BY MOUTH AT BEDTIME DELORIS Betancur Active gabapentin (Neurontin) 100 MG capsule [id number] Yes Take 100 mg by mouth in the morning and 100 mg before bedtime. Historical Provider, Active latanoprost (Xalatan) 0.005 % ophthalmic solution [id number] Yes Administer 1 drop into both eyes at bedtime DELORIS Steele Active meclizine (Antivert) 25 MG tablet [id number] Yes Take 25 mg by mouth as needed in the morning and 25 mg as needed at noon and 25 mg as needed in the evening for dizziness. DELORIS Steele Active omeprazole (PriLOSEC) [address] capsule [id number] Yes Take 40 mg by mouth in the morning. Take before meals. Do not crush or chew. Historical Provider, Active rosuvastatin (Crestor) 10 MG tablet [id number] Yes Take 10 mg by mouth Daily [...] triceps, wrist extensors, wrist extensors, wrist flexor, turner splitter machine operator strength 5/5. LUE Strength deltoid, biceps, triceps, wrist extensors, wrist extensors, wrist flexor, turner splitter machine operator strength 5/5. RLE Strength illopsoas, quadriceps, tibialis [...] in 2-3 months documented in this encounter [facility] 12-14-2024 History of Presen t illness Narrative Images from the original note were not included. [address] [place] [address] [address] [facility] [id number] Patient: Rosa Eastman Date of : 1965 [...] 05/03/2021 Performed by Carlos Olmos MD at [facility] TONSILLECTOMY ULNAR NERVE REPAIR [...] for your understanding. documented in this encounter [facility] 12-09-2024 Miscellaneous Notes Contacted the Pt. To remind him to get his PSA drawn before his appt on Friday with MD Drew. No further questions at this time. documented in this encounter [facility] 12-09-2024 Telephone encounter Note Contacted the Pt. To remind him to get his PSA drawn before his appt on Friday with MD Drew. No further questions at this time. [facility] 09-06-2024 History of Presen t illness Narrative [...] Review Audit Reviewed by Sophy Hays MA (Director Of Financial Aid) on 09/06/24 at 1323 Medication Order Taking? Sig Documenting Provider Last Dose Status cyclobenzaprine (Flexeril) 5 MG tablet [id number] Take 2 tablets (10 mg) by mouth at bedtime DELORIS Steele 09/01/24 2359 gabapentin (Neurontin) 100 MG capsule [id number] Take 100 mg by mouth in the morning and 100 mg before bedtime. Historical ProviderMD Active latanoprost (Xalatan) 0.005 % ophthalmic solution [id number] Administer 1 drop into both eyes at bedtime DELORIS Steele Active meclizine (Antivert) 25 MG tablet [id number] Take 25 mg by mouth 3 (three) times a day as needed for dizziness DELORIS Steele Active omeprazole (PriLOSEC) [address] capsule [id number] Take 40 mg by mouth in the morning. Take before meals. Do not crush or chew.. 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 LUE Strength deltoid, biceps, triceps, wrist extensors, wrist extensors, wrist flexor, turner splitter machine operator strength 5/5. RLE Strength illopsoas, quadriceps, tibialis [...] EMG pending course documented in this encounter [facility] 12-09-2023 History of Presen t illness Narrative Images from the original note were not included. [address] [place] [id number] Patient: Rosa Eastman Date of : 1965 [...] 05/03/2021 Performed by Carlos Olmos MD at [facility] EYE SURGERY TONSILLECTOMY ULNAR NERVE REPAIR [...] for your understanding. 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 I will see him on an as-needed basis I think he has had a good outcome overall. [facility] Other 05-04-2022 Evaluation note* Encounter Date Diagnosis [...] Cervical spondylosis with myelopathy (ICD-10 - M47.12) [facility] Other 03-29-2022 NoteEducation Materials Neurology Paresthesia Paresthesia [...] or sweet foods. General instructions ? Take zihx-fvg-slotqov and prescription medicines only as told by [...] provider. Document Revised: 11/22/2019 Document Reviewed: 11/05/2018 [employer] Patient Education ? 2020 [employer]. Orthopedics Cubital Tunnel Syndrome Cubital tunnel syndrome [...] ? Playing contact sports, (more content not included)...[facility] 01-14-2022 Evaluation note* Encounter Date Diagnosis [...] will see him on an as-needed basis. [facility] Other 11-10-2021 Evaluation note* Encounter Date Diagnosis [...] They understand and would like to proceed [facility] Other 09-27-2021 Note [id number]05-23-2021 NoteEducation Materials Orthopedics Wrist Sprain, [...] health care provider. General instructions ? Take qsds-alr-czdycew and prescription medicines only as told by [...] Reviewed: 05/15/2017 Elsevier Patient Education ? 2019 [employer] Wrist and Forearm Exercises Ask your health care provider which exercises are safe for you. Do exercises exactly as told by your health care provider and adjust them as directed. It is normal to feel mild stretching, pulling, tightness, or discomfort as you do these exercises. Stop right away if you feel sudden pain or your (more content not included)...[facility] note[facility] InformationNort Yunno Other evaluation noteNo assessment information available [facility] Work Phone: Evaluation note* Diagnosis Balance problems- Primary Abnormality of gait Hyper reflexia Abnormal reflex Lightheadedness Dizziness and giddiness Lumbar back pain Lumbago GIRMA (obstructive sleep apnea) Obstructive sleep apnea (adult) (pediatric) Memory change Memory loss documented in this encounter [facility]* Diagnosis Benign localized prostatic hyperplasia with lower urinary tract symptoms (LUTS)- Primary Benign localized prostatic hyperplasia with lower urinary tract symptoms (LUTS)- Primary documented [facility] Diagnosis Benign localized prostatic hyperplasia with lower urinary tract symptoms (LUTS)- Primary documented in this encounter [facility]* Diagnosis Radiculopathy, cervical region- Primary Brachial neuritis or radiculitis nos Memory change Memory loss GIRMA (obstructive sleep apnea) Obstructive sleep apnea (adult) (pediatric) Balance problems Abnormality of gait documented in this encounter [facility] Healthcare[facility] note* Diagnosis Lumbosacral radiculopathy- Primary Thoracic or lumbosacral neuritis or radiculitis, unspecified Ulnar neuropathy at elbow of right upper extremity Balance problems Abnormality of gait Memory change Memory loss GIRMA (obstructive sleep apnea) Obstructive sleep apnea (adult) (pediatric) documented in this encounter [facility] HealthcareHistory general Narrative - Reported* Type Description Date Surgical History (R) carpal tunnel release Surgical History (R) Ulnar nerve release Surgical History tonsillectomy Hospitalization History See Above [facility] Other Hospital Discharge instructions Additional Instructions Use [...] Any unusual redness or drainage contact the [facility] Work Phone: InstructionsNot on filedocumented in this encounter [facility]Not [facility] filedocumented in this encounter [facility]* Attachments The following attachments cannot be sent through Care Everywhere. * Benign prostatic hyperplasia (enlarged prostate) (Norwegian) [facility] Summary Purpose Family History No [...] 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) Referral Organization [facility] urosurgery Referring Provider First Name Harvey Referring Provider Last Name Yanet Referring Provider Specialty Neurosurger y Referred Organization [facility] Referred Provider Mani Carpenter Referred Address [address] [place] [phone] Referred Provider Specialty Neurology Referral Priority Routine [...] section and content) DATE CREATED AUTHOR 02/16/2022 [facility] DATE CREATED AUTHOR AUTHOR'S ORGANIZ ATION 01/23/2023 [facility] DATE CREATED AUTHOR AUTHOR'S ORGANIZ ATION 03/08/2023 [facility] DATE CREATED AUTHOR AUTHOR'S ORGANIZ ATION 10/18/2023 [facility] DATE CREATED AUTHOR AUTHOR'S ORGANIZ ATION 03/09/2025 [facility] DATE CREATED AUTHOR AUTHOR'S ORGANIZ ATION 03/24/2025 [facility] dical Specialists EPIC REASON FOR VISIT [...] Josué Evangelista MD Attending Provider Active Manager Search Engine Relationship Specialty Start Date End Date Britt Penaloza DO [address] [place] [address] PCP - General Family Medicine 11/10/23 Mani Carpenter MD [address] [place] [address] Referring Physician Neurology 11/10/23 Manager Search Engine Relationship Specialty Start Date End Date Britt Penaloza DO [address] [place] [address] PCP - General Family Medicine 11/10/23 Mani Carpenter MD [address] [place] [address] Referring Physician Neurology 11/10/23 Manager Search Engine Relationship Specialty Start Date End Date [facility] [address] [place] PCP - General Family Medicine 05/03/21 Manager Search Engine Relationship Specialty Start Date End Date Services, [facility] [address] [place], [place] PCP - General Family Medicine 05/03/21 Manager Search Engine Relationship Specialty Start Date End Date Services, [facility] [address] [place], [place] PCP - General Family Medicine 05/03/21 Manager Search Engine Relationship Specialty Start Date End Date Britt Penaloza DO [address] [place], [place] [id number] PCP - General Family Medicine 11/10/23 Mani Carpenter MD [address] [place], [place] [id number] Referring Physician Neurology 11/10/23 Manager Search Engine Relationship Specialty Start Date End Date Britt Penaloza DO [address] [place], [place] [id number] PCP - General Family Medicine 11/10/23 Mani Carpenter MD [address] [place], [place] [id number] Referring Physician Neurology 11/10/23 Manager Search Engine Relationship Specialty Start Date End Date Britt Penaloza DO [address] [place] [address] PCP - General Family Medicine 11/10/23 Mani Carpenter MD [address] [place] [address] Referring Physician Neurology 11/10/23 Charmaine Castro PA [address] [place], [place] [id number] Physician Marine Design Engineer Neurology 02/01/25 Manager Search Engine Relationship Specialty Start Date End Date Britt Penaloza DO [address] [place], [place] [id number] PCP - General Family Medicine 11/10/23 Mani Carpenter MD [address] [place] [address] Referring Physician Neurology 11/10/23 Charmaine Castro PA [address] [place] [address] Physician Marine Design Engineer Neurology 02/01/25 Goals (unrecognized section and content) [...] BE BASED ON THE PRIMARY CLINICAL RECORDS. [employer] [facility]. provides no warranty or guarantee of the accuracy or completeness of information in this document.
[2025-05-02 07:22] VITALS: BP 128/69; PULSE 89; TEMP 36.9; O2SAT 97
[2025-05-02 08:12] VITALS: BP 132/60; PULSE 79; PULSE 80; O2SAT 97; O2SAT 98
[2025-05-02 08:13] VITALS: BP 135/69
[2025-05-02] MEDS: BUPIVACAINE HCL 0.25% PF 25 MG/10 ML VIAL INJ (08:14)
[2025-05-02] MEDS: IOHEXOL 240 MG/ML - 10 ML VIAL INJ (08:15)
[2025-05-02] MEDS: LIDOCAINE HCL 2% 400 MG/20 ML MDV 3 ML INJ (08:15)
[2025-05-02] MEDS: DEXAMETHASONE SOD PHOS 10 MG/ML VIAL INJ (08:15)
--- NOTE | 2025-05-02 08:17 | W.PM.PROCNOT ---
Date of procedure: 05/02/25 Pre-op diagnosis: M54.12 Procedure: Procedure: Bilateral C4-5 transforaminal epidural steroid injection Medications: Bupivacaine 0.25% 1cc, lidocaine 2% 1cc, dexamethasone 10mg The patient was seen and examined in the preoperative holding area.? Informed consent was obtained and placed on the chart.? Patient was brought to the medical procedure unit and placed in the prone position where a timeout was completed verifying the correct patient, procedure site, position, and planned special equipment using sterile aseptic technique.? Under direct fluoroscopic visualization a 25-gauge Quincke tipped spinal needle was advanced at level left C4-5 to the designated neural foramen where contrast dye was injected to show adequate spread.? There was no evidence of vascular or adverse uptake.? Epidural spread was appreciated.? The above-mentioned injectate was then placed in a 1.5 mL aliquot preceded by negative aspiration.? The needle was removed. The same procedure, at the same level, was completed on the opposite side. ? Patient was taken to the postprocedural recovery area and monitored for an appropriate length of time before found suitable for discharge in the accompaniment of a responsible adult. Anesthesia: Local Surgeon: Richard Lezama Pathology: none sent Condition: stable Disposition: no change
== END 2025-05-02 08:20 | disposition home or self-care (01) ==
LOC: SURGOUT 07:13
PROVIDERS: PCP Family Medicine; Visit Provider Anesthesiology
DX: M54.12 Radiculopathy, cervical region (principal)
CPT/HCPCS: 64479; J0665; J1100; Q9966

== ENCOUNTER 2025-05-11 14:45 | Outpatient (OUT) | payer MEDICAID, SELFPAY ==
--- OUTSIDE RECORDS SUMMARY | 2025-05-11 14:47 | XMS_ITS | Clinical Summary ---
Author Organization [facility] Address [address] [place] [address] Care Team Providers Care Statistical Programmer Analyst Name Role Phone NicolaBritt sepulveda DO Primary Care Provider [phone] Allergies Active Allergy Reactions Criticality Noted Date [...] 2012 FIT/FOBT: Average risk 2012 Fecal-DNA (Cologuard): [place] ge risk 2012 Sigmoidoscopy/CT colonography 2012 Shingles [...] patient's age to complete this topic Insurance [facility] MEDICAID Care Teams Statistical Programmer Analyst Relationship Specialty Start Date End Date Britt Goodman DO [address] [place] [address] PCP - General Family Medicine 08/22/23
--- OUTSIDE RECORDS SUMMARY | 2025-05-11 14:47 | XMS_ITS | Clinical Summary ---
Author Organization [facility] Address [id number] [address] [place] [address] Care Team Providers Care Pen And Pencil Repairer Name Role Phone Services, [facility] Primary Care Provider Allergies Active Allergy Reactions [...] Devices Not on file Insurance [address] [place] [address] [employer] MEDICAID Care Teams Pen And Pencil Repairer Relationship Specialty Start Date End Date Services, [facility] [address] [place], [place] PCP - General Family Medicine 05/03/21
--- OUTSIDE RECORDS SUMMARY | 2025-05-11 14:47 | XMS_ITS | Clinical Summary ---
Author Organization [facility] Address [address] [place] [address] Care Team Providers Care Sponge Fisherman Name Role Phone RexBritt Primary Care Provider [phone] Jonn Singer MD Unavailable [phone] Charmaine Castro Unavailable Allergies Active Allergy Reactions [...] crush, chew, or split. 60 tablet 2 5 025 Active Problems Problem Noted Date Diagnosed Date [...] Care Team Description 04/07/2025 Refill [facility] [address] [place] [phone] Charmaine Castro PA Radiculopathy, cervical region 03/23/2025 1:00 PM EDT Office Visit [facility] [address] [phone] Charmaine Castro PA Lumbosacral radiculopathy (Primary Dx); Ulnar neuropathy at elbow of right upper extremity; Balance problems; Memory change; GIRMA (obstructive sleep apnea) 03/23/2025 Bamboo flowsheet [facility] [address] [phone] Charmaine Castro PA 03/20/2025 Travel 03/16/2025 Refill [facility] [address] [phone] Charmaine Castro PA Radiculopathy, cervical region from Last 3 Months Family History Medical [...] Influenza Vaccine (Season Ended) 2025 12/08/19 21 Insurance [employer] MEDICAID [place] Care Teams Sponge Fisherman Relationship Specialty Start Date End Date Britt Goodman DO [address] [place] [address] PCP - General Family Medicine 11/10/23 Jonn Singer MD [address] [facility] [place] [address] Referring Physician Neurology 11/10/23 Charmaine Castro PA [address] [facility] [address] [place] [address] Physician Senior Chemical Process Engineer Neurology 02/01/25
--- NOTE | 2025-05-11 15:13 | PM.CN ---
Consult Note: HPI Data of Consult Patient: known to practice within the last 3 years Requesting Physician: Wilma Bhardwaj NP Primary Care Provider: Britt Goodman Consult Narrative Reason for consult: neck pain Narrative: Homer Eastman a pleasant 59 year old male presents for evaluation of chronic neck pain and cervical radiculopathy. recently underwent bilateral C4-5 TFESI with significant relief. pain 1/10 with intermittent weakness of right hand. finds benefit to carpal tunnel brace HS. utilizing flexeril and gabapentin with benefit, denies side effects. cc:: CC: Wilma Bhardwaj NP [facility] Medical History (Updated 04/20/25 @ 14:55 by Wilma Bhardwaj NP) Glaucoma �H40.9 - Unspecified glaucoma (ICD-10) Obesity �E66.9 - Obesity, unspecified (ICD-10) Smoker �F17.200 - Nicotine dependence, unspecified, uncomplicated (ICD-10) Low back pain �M54.50 - Low back pain, unspecified (ICD-10) Neck pain �M54.2 - Cervicalgia (ICD-10) Osteoarthritis �M19.90 - Unspecified osteoarthritis, unspecified site (ICD-10) Bipolar depression �F31.9 - Bipolar disorder, unspecified (ICD-10) Carpal tunnel syndrome �G56.00 - Carpal tunnel syndrome, unspecified upper limb (ICD-10) Chronic GERD �K21.9 - Gastro-esophageal reflux disease without esophagitis (ICD-10) Acid reflux �K21.9 - Gastro-esophageal reflux disease without esophagitis (ICD-10) Sleep apnea �G47.30 - Sleep apnea, unspecified (ICD-10) High cholesterol �E78.00 - Pure hypercholesterolemia, unspecified (ICD-10) Surgical History H/O neck surgery �Z98.890 - Other specified postprocedural states (ICD-10) H/O elbow surgery �Z98.890 - Other specified postprocedural states (ICD-10) H/O carpal tunnel repair �Z98.890 - Other specified postprocedural states (ICD-10) Hx of tonsillectomy �Z90.89 - Acquired absence of other organs (ICD-10) H/O eye surgery �Z98.890 - Other specified postprocedural states (ICD-10) Meds Home Medications and Allergies Home Medications �Medication �Instructions �Recorded �Confirmed �Type epinephrine 0.3 mg/0.3 mL 0.3 mg IM DAILY PRN anaphylaxis 08/30/23 05/02/25 History injection, auto-injector latanoprost 0.005 % eye drops 1 drp ophthalmic (eye) .QHS 08/30/23 05/02/25 History omeprazole 40 mg capsule,delayed 40 mg PO QAM 08/30/23 05/02/25 History release rosuvastatin 5 mg tablet 5 mg PO DAILY 08/30/23 05/02/25 History cyclobenzaprine 5 mg tablet 5 mg PO DAILY 12/08/23 05/02/25 History famotidine 20 mg tablet mg 04/19/24 History gabapentin 100 mg capsule See Rx Instructions .Route 04/07/25 05/02/25 Rx .COMPLEX #120 caps Allergies Allergy/AdvReac Type Severity Reaction Status Date / Time bee venom protein (honey bee) Allergy Severe UNKNOWN Verified 05/02/25 07:21 Penicillins Allergy Severe LOSS OF Verified 05/02/25 07:21 CONCIOUSNESS Exam Constitutional Documenting provider has reviewed patient's vital signs: yes Common normals: no apparent distress, oriented x3, healthy appearing, alert and well nourished General appearance: cooperative HENMT Common normals: normocephalic, hearing grossly normal bilaterally and moist oral mucous membranes Head and scalp: normocephalic Eye Common normals: PERRL Pupil: PERRL Neck & C-Spine Common normals: full ROM General: normal visual inspection Cervical spine: cervical ROM normal; cervical ROM not abnormal, no pain with cervical ROM and no cervical spine tenderness Other: negative spurlings strength 5/5 in BUE sensation intact BUE Chest Common normals: inspection of chest normal Respiratory Common normals: normal respiratory effort, no retractions and no use of accessory muscles Neuro Common normals: oriented x3 Sensorium/orientation: alert Psych Common normals: mental status grossly normal, thought process normal, cooperative, affect normal, speech normal and activity/motor behavior normal Speech: normal speech Thought process: normal thought process Results Additional Findings Additional findings: If on a controlled substance or opioids, I have checked an [place]AR[place] report on this patient and there are no aberrancies noted in the prescribing history.��If on a controlled substance or opioid a drug screen was completed and reviewed within the last year, and if there has not been a drug screen completed we ordered one today to monitor higher risk, state monitored pain medication use. As part of providing excellent, safe, comprehensive care, the following was completed at our patient's visit: 1. A medication reconciliation and review to ensure accurate knowledge of current/active medications, including asking our patients to inform us about any [id number] medications or herbal remedies/nutritional supplements/alternative remedies. 2. A review to specifically ensure our patients have had annual screening for screening for depression, screening for tobacco use, and screening for unhealthy alcohol use. For concerning screenings had a discussion with the patient, provided patient education, and recommended follow-up with primary care provider when appropriate. If patient noted with a risk of falling, they received education on strength, gait, and balance training to prevent future risk of falling. Portions of this note may have been carried over from the previous visit and updated as appropriate. Please note this office utilizes paper charting in addition to the electronic medical record. A list of current medications, vitals, and PMH is available there as the clinical staff outside of myself do not have access to [employer] charting during the clinic day operations. As part of providing quality comprehensive care the current medications, vitals, and PMH were reviewed in the paper chart. Assessment and Plan Assessment and Plan (1) Cervical spinal stenosis: (2) Cervical radiculopathy: (3) Carpal tunnel syndrome: Assessment and Plan: declining ortho referral, continue bracing Plan recent bilateral C4-5 TFESI providing significant ongoing relief continue current medications f/u 3 months, sooner if needed
== END 2025-05-11 14:46 | disposition home or self-care (01) ==
LOC: PM 14:45
PROVIDERS: PCP Family Medicine; Visit Provider Nurse Practitioner
DX: M48.02 Spinal stenosis, cervical region (principal); M54.12 Radiculopathy, cervical region
CPT/HCPCS: G0463

== ENCOUNTER 2025-08-11 10:32 | Outpatient (OUT) | payer MEDICARE, MEDICAID, SELFPAY ==
--- OUTSIDE RECORDS SUMMARY | 2024-06-29 06:30 | XMS_ITS ---
Author Organization [facility] vices Address [address] [place] [place] [id number] Care Team Providers Care Professor Of Psychology Name Role Phone Kenisha Baxter Primary Care Provider Birtt Goodman [phone] REASON FOR VISIT GERD & Hyperlipidemia Social History Sex Assigned At : Social History Observation Description Sex Assigned At Male Encounters Encounter Location Date Provider Diagnosis Main [address] [place] [place] [id number] 06/29/2024 Britt Goodman Plan Of Treatment Next Appt Details Provider Name:Kenisha chung, 01/16/2026 01:15:00 PM, [address] [place], [phone], Progress Notes * Homer EASTMANDOB:[birth year] (60 yo M)Acc No.[id number]:06/29/2024 Medical Note Patient: Homer SALVADOR Provider: Daniel Goodman DO :1965 A ge:59 Y S ex:Male Date:06/29/2024 Address:[address] [place], [place] [phone] Pcp:Kenisha Baxter Subjective: * Chief Complaints: * 1 . GERD & Hyperlipidemia. * Medical History: Objective: * Vitals: Assessment: Plan: * Treatment: * Billing Information: * Visit Code: * Procedure Codes: * Electronic signature of Kimberli Goodman DO on 08/11/2025 at 10:37 AM EDT Sign off status: Pending * Provider: Daniel Goodman DO Date: 0 06/29/2024 Generated for Prakash skaggs/Joann/Anneliese on: 1 10:37 AM EDT
--- OUTSIDE RECORDS SUMMARY | 2025-05-02 | XMS_ITS ---
Author Name Auto Generated Organization OHIP Care Team Providers Care Desktop Publishing Operator Name Role Phone SAVANNAH AYOUB Attending Unavailable MANI CARPENTER Attending Unavailable GÓMEZ SIDHU Attending Unavailable SAVANNAH AYOUB Attending Unavailable SAVANNAH AYOUB Attending Unavailable Lise RAWLS, Andmagdaleno Guaman Attending Unavailable Lise RAWLS, Andrius Deniz Attending Unavailable Lise RAWLS, Andrius Deniz Attending Unavailable Lise RAWLS, Andrius Guaman Attending Unavailable Lise RAWLS, Andrius Deniz Attending Unavailable Lise RAWLS, Andrius Deniz Attending Unavailable PROBLEMS No Problem Records Found PROCEDURES No Procedure Records Found RESULTS No Result Records Found ALLERGIES No Allergies Records Found ENCOUNTERS ADMIT/DISCHARGE ACCOUNT NUMBER ADMITTING ENCOUNTER CLASS LOCATION SOURCE 05/02/2025/ 5 [id number] [facility] 04/18/2025/ 5 [id number] [facility] 03/23/2025/ 5 [id number] Ambulatory Building:[facility] 02/28/2025/ 5 [id number] [facility]ulatory PM [place] 02/01/2025/ 5 [id number] Ambulatory Building:[facility] 01/31/2025/ 5 [id number] Ambulatory PM [place] 01/25/2025/ 5 [id number] Ambulatory Building:[facility] 12/28/2024/ 5 [id number] Ambulatory Building:[facility] 09/13/2024/ 4 [id number] Ambulatory PM [place] 09/06/2024/ 4 [id number] Ambulatory Building:R [facility]O [facility] 08/23/2024/ 4 [id number] Ambulatory PM [place] PAYERS ENCOUNTER GUARANTOR PAYER SUBSCRIBER SOURCE 05/02/2025 Rosa Moises: [place] [address] Primary Insurance:[employer] icy Number: Effective Date:7321-77-00Fwrk Name:KEYUR Willis [id number] [address]NN: Rosa De Leon: [id number] [address] 04/18/2025 Rosa Moises: [place] [address] Primary Insurance:[employer]them[employer] icy Number: Effective Date:5198-44-51Uwhd Name:COMP [address], [place] [address]JK: Rosa AcevedoB: [id number] [address] [facility] 03/23/2025 ROSA HUDSONOXDOB: [place] [address]Tel: (HP) (WP) Primary Insurance:[facility]ICAID [facility]: [id number] ve Date:2022-12-11 ROSA DOUGLASOXDOB: [id number] [place] [id number] [facility] EPIC 02/28/2025 Rosa HudsonoxDOB: [place] [address] Primary Insurance:[employer]them[employer] icy Number: Effective Date:4357-90-24Swyp Name:PELON Rogers [id number]: Rosa DouglasoxDOB: [id number] [place] [id number] [facility] 02/01/2025 ROSA HUDSONOXDOB: [place] [address]Tel: (HP) (WP) Primary Insurance:[facility] MEDICAID [facility]: [id number] ve Date:2022-12-11 ROSA DOUGLASOXDOB: [id number] [place] [id number] [facility] EPIC 01/31/2025 Rosa DouglasoxDOB: [place] [address] Primary Insurance:[employer] icy Number: Effective Date:5214-79-25Yoto Name:COMP [place] [address]CS: Rosa DouglasoxDOB: [id number] [place] [address] [facility] 01/25/2025 ROSA DOUGLASOXDOB: [address]Tel: (HP) (WP) Primary Insurance:[facility] [place]ID [place]: [id number] ve Date:2022-12-11 ROSA HUDSONOXDOB: [id number] [address] [facility] 12/28/2024 ROSA DOUGLASOXDOB: [place] [address]Tel: (HP) (WP) Primary Insurance:[facility] MEDICAID [facility] Number: [id number] ve Date:2022-12-11 ROSA HUDSONOXDOB: [id number] [address] [facility] 09/13/2024 Rosa DouglasoxDOB: [place] [address] Primary Insurance:[employer] icy Number: Effective Date:6119-09-82Ybth Name:KEYUR Willis [id number], [place] [address]DH: Rosa HudsonoxDOB: [id number] [address] 09/06/2024 ROSA HUDSONOXDOB: [place] [address]Tel: (HP) (WP) Primary Insurance:[facility] MEDICAID [facility] Number: [id number] ve Date:2022-12-11 ROSA SIENAHOAOXDOB: [id number] [facility] 08/23/2024 Rosa oDuglasoxDOB: [place] [id number] Primary Insurance:[employer] icy Number: Effective Date:6159-42-18Uihw Name:KEYUR Willis [id number], [place] [address]UC: Rosa EastmanDOB: [id number] [address] [address] [facility]
--- OUTSIDE RECORDS SUMMARY | 2025-08-11 10:37 | XMS_ITS | Clinical Summary ---
[id number] [place] [address] Care Team Providers Care Chief Guard Name Role Phone Services, [facility] Primary Care Provider Allergies Active Allergy Reactions [...] 2) 2017 COVID-19 Vaccine (3 - season) 2025, 02/14/2021 Influenza Vaccine 07/11/2025 Adult BMI Screening 12/14/2025 12/14/2024 Tobacco Screening 12/14/2025 12/14/2024 Medical Devices Not on file [address] [place] [address] [facility] MEDICAID Care Teams Chief Guard Relationship Specialty Start Date End Date Services, [facility] [address] [place], [place] PCP - General Family Medicine 05/03/21
--- OUTSIDE RECORDS SUMMARY | 2025-08-11 10:37 | XMS_ITS | Clinical Summary ---
Author Organization [facility] Address [address] [place] [address] Care Team Providers Care Revenue Cycle Manager Name Role Phone RexBritt Primary Care Provider Jonn Singer MD Unavailable [phone] Charmaine Castro Unavailable Allergies Active Allergy Reactions [...] for dizziness. Active cyclobenzaprine (Flexeril) 5 MG tabletIndicatio ns:Radiculopath y, cervical region TAKE 2 TABLETS BY MOUTH AT BEDTIME 30 tablet 1 Active Active Problems Problem Noted Date Diagnosed [...] intellectual disability 04/23/2024 Other chronic pain 04/23/2024 Family History Medical History Relation Name Comments [...] 1967 FOBT 1967 Sigmoidoscopy 1967 Influenza Vaccine (#1) 2025 12/08/2020 Insurance [employer] MEDICAID [place] Care Teams Revenue Cycle Manager Relationship Specialty Start Date End Date Britt Goodman DO [address] [place] [address] PCP - General Family Medicine 11/10/23 Jonn Singer MD [address] [place], [place] [id number] Referring Physician Neurology 11/10/23 Charmaine Castro PA [address] [facility] [address] [place] [address] Physician [facility] Derrick Worker Neurology 02/01/25
--- OUTSIDE RECORDS SUMMARY | 2025-08-11 10:37 | XMS_ITS | Patient Health Record ---
Author Organization [facility] Address [address] [place], [place] [id number] Care Team Providers Care Home Stager Name Role Phone Kenisha Baxter Primary Care Provider Kristine, Julia Unavailable [phone] Allergies Allergen (clinical drug ingredient) Drug/Non Drug Allergy documented on EMR Reaction Allergy Type Onset Date Status Bee Sting Difficulty breathing Allergy Active Substance with penicillin structure and antibacterial mechanism of action (substance) Penicillins Unknown Drug Allergy Active Results Component Value Reference Range Notes PSA, TOTAL, 3RD GENERATION ( MC SCREEN) Reviewed date:05/02/2025 07:04:04 PM Interpretation: Performing Lab: Notes/Report: CLIA NUMBER [id number] CAP ACCREDITATION AUID [id number] RN MILITARY: MIRI ALCANTARA M.D. [facility] [employer] [address] [place] [address] UNLESS OTHERWISE INDICATED, ALL TESTING PERFORMED AT: followed by a subsequent confirmatory PSA value >=0.2 ng/ml. defines biochemical recurrence as an initial PSA value >=0.2 ng/ml patients. It may also be due to the presence of benign glands. The AUA with eventual clinical disease recurrence in some, but not all A detectable PSA following radical prostatectomy is associated assay methods or kits can not be used interchangeably. management of prostate cancer patients. Values obtained with different disease, however it is widely accepted as an adjunctive test in the PSA levels should not be interpreted as absolute evidence of Method: Jyothi Sarah ECLIA PSA, TOTAL 1.040 0-4.00 ng/mL COMPREHENSIVE METABOLIC PANE L WITH GFR Reviewed date:05/02/2025 07:04:12 PM Interpretation: Performing Lab: Notes/Report: GLUCOSE 97 70-100 mg/dL BUN 14 6-20 mg/dL CALCIUM 9.7 8.6-10.5 mg/dL CREATININE, BLOOD 1.04 0.67-1.30 mg/dL eGFR (2020 CKD-EPI) 84 >59 mL/min/1.73m2 SODIUM 140 135-148 mmol/L POTASSIUM 3.9 3.5-5.4 mmol/L CHLORIDE 102 96-107 mmol/L CO2 25 18-32 mmol/L ANION GAP 13 7-16 mmol/L T. BILIRUBIN 0.5 <1.3 mg/dL ALK PHOS 118 39-118 U/L AST-SGOT 19 9-50 U/L ALT-SGPT 24 5-41 U/L T. PROTEIN 7.8 6.0-8.3 g/dL ALBUMIN 4.2 3.5-5.2 g/dL LIPID PANEL WITH REFLEX TO D IRECT LDL Reviewed date:05/02/2025 07:04:47 PM Interpretation: Performing Lab: Notes/Report: CHOLESTEROL 162 100-199 mg/dL TRIGLYCERIDES 133 20-149 mg/dL VLDL-CHOL, CALCULATED 27 <30 mg/dL HDL-CHOL 36 >=40 mg/dL LDL-CHOL, CALCULATED 99 <130 mg/dL ADULT LDL CHOLESTEROL CLASSIFICATION <100mg/dL Optimal 100-129mg/dL Near/Above Optimal 130-159mg/dL Borderline High >160mg/dL High Risk Desirable range <100 mg/dL for patients with CHD or diabetes and <70 mg/dL for diabetic patients with known heart disease. Direct LDL is recommended for patients with triglycerides >400. LDL/HDL 2.8 <5.0 LDL/HDL RATIO MALE FEMALE below average risk <2.3 <2.3 average risk <5.0 <4.1 moderate risk <7.1 <5.6 high risk >7.1 >5.6 CHOL/HDL 4.5 2.0-4.5 Reason For Referral Reason multiple skin tags Diagnosis 1 Skin tag (L91.8) Referral Organization Main Referring Provider First Name Kenisha Referring Provider Last Name Vee Referring Provider Speciality Nurse Rodrigo whitaker Referred Provider [facility] Referred Provider Specialty Dermatology General Notes Donna Amaro 09:08:30 AM >{ {TOFIRSTNAME}} This is [facility] following up on an outstanding referral that was ordered by your provider. Please call our office at , so we can _update our records. Referral Priority Routine Reason corn of right foot Diagnosis 1 Ina of foot (L84) Referral Organization Main Referring Provider First Name Kenisha Referring Provider Last Name Vee Referring Provider Speciality Nurse Rodrigo whitaker Referred Provider [facility] Referred Provider Specialty Podiatry General Notes Donna Amaro 09:08:22 AM >{ {TOFIRSTNAME}} This is [facility] following up on an outstanding referral that was ordered by your provider. Please call our office at , so we can _update our records., Donna Amaro 02/01/2025 10:32:02 AM >No response from patient, closing referral per protocol. Referral Priority Routine Medications Medication SIG (Take, Route, Frequency, Duration) Notes Start Date End Date Status EpiPen 2-Mike 0.3 MG/0.3ML as directed In jection once, may repeat dose once after 5-15 minutes; Duration: 90 days 02/27/2023 Active Latanoprost 0.005 % place 1 drop into david th eyes every evening as directed Ophthalmic; Duration: 25 Days Active Rosuvastatin Calcium 5 MG 1 tablet Orall y Once a day; Duration: 90 days 08/29/2022 Active Gabapentin 100 MG TAKE 1 CAPSULE BY [facility] TWICE A DAY FOR 90 DAYS; Duration: 30 Active Famotidine 20 MG 1 tablet at bedtime as needed Orally Once a day; Duration: 90 days Active Omeprazole 40 MG 1 capsule 1/2 to 1 h our before morning meal Orally Once a day; Duration: 90 days Active Social History Tobacco Use: Social History Observation Description Date Details (start date - stop date) Current Smoker 12/11/1983 - NA Sex Assigned At : Social History Observation Description Sex Assigned At Male Household Question Answer Notes Number of adults in household: 2 Number of children in household: 0 Tobacco Use/Smoking Question Answer Notes Are you interested in quitting? Ready to quit patient entered data How many cigarettes a day do you smoke? 6-10 patient entered data How soon after you wake up d o you smoke your first cigarette? 6-30 minutes patient entered ida a How often do you smoke cigarettes? every day patient entered data When did you start smoking? 12/11/1983 p atient entered data Tobacco use: current smoker patient enter ed data When did you start smoking? 11/10/1986 Additional Findings: Tobacco User Moderate cigarette smoker (10-19 cigs/day) CAGE-AID Questionnaire (2018 Edition) Question Answer Notes Have you ever felt that you ought to cut down on your drinking or drug use? No patient entered data Have people annoyed you by c riticizing your drinking or drug use? No patient entered data Have you ever felt bad or gu ilty about your drinking or drug use? No patient entered data Have you ever had a drink or used drugs first thing in the morning to steady your nerves or to get rid of a hangover? No patient entered data CAGE-AID Score 0 Interpretation Negative PRAPARE Question Answer Notes Date Completed/Updated: 01/06/2025 indy nt entered data What is your current housing situation? I have housing patient entered data Are you worried about losing your housing? No patient entered data What is the highest level of school that you have finished? 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 Check all that apply I do not have problems meeting my needs Has lack of transportation k ept you from medical appointments, meetings, work or from getting things needed for daily living? No How often do you see or talk to people that you care about and feel close to? (For example: talking to friends on the phone, visiting friends or family, going to buddhist or club meetings) Less than once a week patient entered data How stressed are you? Stress is when someone feels tense, nervous, anxious, or can't sleep at night because their mind is troubled A little bit patient entered data In the past year have you sp ent more than 2 nights in a row in a correction, shelter, shelter center, or juvenile correctional facility? No patient entered data Are you a refugee? No patient en tered data What country are you from? [place] sara argueta entered data Do you feel physically and emotionally safe where you currently live? Yes patient entered data In the past year, have you b een afraid of your partner or ex-partner? No patient entered data PRAPARE Score: 5 Problems Problem Type SNOMED Code ICD Code Onset Dates Problem Status W/U Status Risk Notes Problem Body mass index 30.00 to 34.99 (254247113606359) Body mass index [BMI] 31.0-31.9, adult (Z68.31) Active confirmed Problem Body mass index 30.00 to 34.99 (890442410520696) Body mass index [BMI] 34.0-34.9, adult (Z68.34) Active confirmed Problem Tobacco user (650245550) Cigarette nicotine dependence without complication (F17.210) Active confirmed Problem Hyperlipidaemia (66509042) Hyperlipidemia, unspecified hyperlipidemia type (E78.5) Active confirmed Problem Neck pain (40559891) Neck pain (M54.2) Active confirmed Problem Gastroesophageal reflux disease without esophagitis (135087090) Gastroesophageal reflux disease without esophagitis (K21.9) Active confirmed Problem Neuropathy (788607648) Neuropathy (G62.9) Active confirmed Story :n eurolog y managin g, Vital Signs Heart Rate 80 /min 07/18/2025 Kelly Kidd 01:57:31 PM EDT > Temperature 98.0 degrees Fahrenheit 07/18/2025 Kelly Kidd 07/18/2025 01:57:31 PM EDT > Respiratory Rate 18 /min 07/18/2025 Amita Kidd 07/18/2025 01:57:31 PM EDT > Blood pressure diastolic 80 mm Hg 07/18/2025 Kelly Keys 07/18/2025 01:57:31 PM EDT > Oximetry 97 % 07/18/2025 Kelly Kidd 01:57:31 PM EDT > Height-cm 170.18 cm 07/18/2025 Bernabe Kelly 01:57:31 PM EDT > Weight-kg 100.06 kg 07/18/2025 Bernabe Kelly 01:57:31 PM EDT > Height 67.00 in 07/18/2025 Bernabe Kelly 01:57:31 PM EDT > Blood pressure systolic 134 mm Hg 07/18/2025 Bernabe Kelly 07/18/2025 01:57:31 PM EDT > Weight 220.6 lbs 07/18/2025 Bernabe Kelly 01:57:31 PM EDT > BMI 34.55 kg/m2 07/18/2025 Bernabe Kelly 01:57:31 PM EDT > Encounters Encounter Location Date Provider Diagnosis Main [address] [place], [place] [id number] 01/06/2025 Kenisha Baxter Hyperlipidemia, unspecified hyperlipidemia type E78.5 ; Gastroesophageal reflux disease without esophagitis K21.9 ; Neuropathy G62.9 ; Neck pain M54.2 ; Skin tag L91.8 ; Ina of foot L84 ; Body mass index [BMI] 31.0-31.9, adult Z68.31 ; Obesity, class 1 E66.811 and Cigarette nicotine dependence without complication F17.210 Main [address] [place], [place] [id number] 04/11/2025 Kenisha Baxter Well adult exam Z00. 00 ; Screening for cardiovascular condition Z13.6 ; Screening for prostate cancer Z12.5 ; Bee sting allergy Z91.030 ; Body mass index [BMI] 31.0-31.9, adult Z68.31 and Obesity, class 1 E66.811 Main [address] [place], [place] [id number] 07/18/2025 Kenisha Baxter Hyperlipidemia, unspecified hyperlipidemia type E78.5 ; Gastroesophageal reflux disease without esophagitis K21.9 ; Neuropathy G62.9 ; Neck pain M54.2 ; Body mass index [BMI] 34.0-34.9, adult Z68.34 and Obesity, class 1 E66.811 Main [address] [place], [place] [id number] 10/18/2024 Julia Kristine Neuropathy G62.9 Main [address] [place] [id number] 12/27/2024 Kenisha Myerholtz Gastroesophageal ref lux disease without esophagitis K21.9 Main [address] [place] [id number] 12/27/2024 Kenisha Myerholtz Gastroesophageal ref lux disease without esophagitis K21.9 [facility] [address] [facility] [place] [id number] 05/02/2025 Kenisha Myerholtz [facility] [address] [facility] [id number] 08/05/2025 Kenisha Myerholtz Hyperlipidemia, unspecified hyperlipidemia type E78.5 Assessments Encounter Date Diagnosis (ICD Code) Assessment Notes Treatment Notes Treatment Clinical Notes Section Notes 10/18/2024 Neuropathy (ICD-10 - G62.9) Story:neurolo gy managing, 12/27/2024 Gastroesophageal reflux disease without esophagitis (ICD-10 - K21.9) 12/27/2024 Gastroesophageal reflux disease without esophagitis (ICD-10 - K21.9) 01/06/2025 Hyperlipidemia, unspecified hyperlipidemia type (ICD-10 - E78.5) Pt is stable on current medications. Will continue current medications. F/u 6 months & PRN 01/06/2025 Gastroesophageal reflux disease without esophagitis (ICD-10 - K21.9) GERD stable. Will continue current medications. F/u 6 months & PRN 04/11/2025 Screening for cardiovascular condition (ICD-10 - Z13.6) 04/11/2025 Well adult exam (ICD-10 - Z00.00) [...] reduce health risks and promote healthy living. 07/18/2025 Hyperlipidemia, unspecified hyperlipidemia type (ICD-10 - E78.5) Pt is stable on current medications. Will continue current medications. F/u 6 months & PRN 07/18/2025 Gastroesophageal reflux disease without esophagitis (ICD-10 - K21.9) GERD stable. Will continue current medications. F/u 6 months & PRN 08/05/2025 Hyperlipidemia, unspecified hyperlipidemia type (ICD-10 - E78.5) 07/18/2025 Neuropathy (ICD-10 - G62.9) Pt is stable on current medications. Will continue current medications. F/u 6 months & PRN 04/11/2025 Screening for prostate cancer (ICD-10 - Z12.5) 01/06/2025 Neuropathy (ICD-10 - G62.9) Pt is stable on current medications. Will continue current medications. F/u 6 months & PRN 01/06/2025 Neck pain (ICD-10 - M54.2) Pt to continue to f/u with Pain Management & Neurology 04/11/2025 Bee sting allergy (ICD-10 - Z91.030) Needed refill 07/18/2025 Neck pain (ICD-10 - M54.2) Pt to continue to f/u with Pain Management & Neurology 04/11/2025 Body mass index [BMI] 31.0-31.9, adult (ICD-10 - Z68.31) Body Mass Index: Care Instructions material was published 07/18/2025 Body mass index [BMI] 34.0-34.9, adult (ICD-10 - Z68.34) 01/06/2025 Skin tag (ICD-10 - L91.8) Will make referral to Dermatology 01/06/2025 Ina of foot (ICD-10 - L84) Will make referral to Podiatry 04/11/2025 Obesity, class 1 (ICD-10 - E66.811) 07/18/2025 Obesity, class 1 (ICD-10 - E66.811) 01/06/2025 Body mass index [BMI] 31.0-31.9, adult (ICD-10 - Z68.31) Body Mass Index: Care Instructions material was published 01/06/2025 Obesity, class 1 (ICD-10 - E66.811) 01/06/2025 Cigarette nicotine dependence without complication (ICD-10 - F17.210) Patient provided with [phone] phone line. 07/18/2025 Other Body Mass Index : Care Instructions material was published Plan Of Treatment Next Appt Details Provider Name:Kenisha chung, 01/16/2026 01:15:00 PM, [address], [id number], Insurance Providers Payer Name Payer Address Payer Phone Subscriber Number Group Number Insured Name Patient Relationship to Insured Coverage Start Date Coverage End Date [facility] [address] [place], [place] [id number] Homer Eastman Self - patient is the insured [facility] [address] [place] [address] [id number] [id number] 1 Homer Eastman - patient is the insured 3 Medicaid [employer] [facility] [address] [place] [address] [id number] Homer Eastman Self - patient is the insured 3 Medical (General) History Medical History History ICD Code GERD Hyperlipidemia Neuropathy Surgical History Surgery Date(Month/Year) Lazy eye Left, (R) elbow surgery 2019-04-19 Carpal tunnel release on the right wrist 2021-01-15 Neck surgery for pinched nerve 10/30 Right elbow nerve surgery 01/30
--- NOTE | 2025-08-11 10:54 | P.CN_ITS ---
Consult Note: HPI Data of Consult Patient: known to practice within the last 3 years Requesting Physician: Wilma Bhardwaj NP Primary Care Provider: Britt Goodman Consult Narrative Reason for consult: low back pain Narrative: Homer Eastman a pleasant 60 year old male presents for evaluation/management of chronic low back pain > 3 years unresponsive to > 6 weeks of PT/HEP, heat, ice, tylenol, nsaids. prior mri consistent with multilevel facet arthropathy, ddd, stenosis. pt notes prior bilateral L4-5 L5-S1 facet RFA is weaing off, he noted >50% improvement greater than 12 months but is wearing off. Pain today 4/10 increasing to 9/10 at times with standing, walking, lifting, bending. mild improvement with sitting, sleep, lying down. denies fall/injury. notes intermittent popping/shifting sensation in low back. utilizing flexeril and gabapentin with benefit without side effects. cc:: CC: Wilma Bhardwaj NP Review of Systems ROS Musculoskeletal Reports: back pain; Denies: neck pain PFSH PFS Medical History (Updated 04/20/25 @ 14:55 by Wilma Bhardwaj NP) Glaucoma ?H40.9 - Unspecified glaucoma (ICD-10) Obesity ?E66.9 - Obesity, unspecified (ICD-10) Smoker ?F17.200 - Nicotine dependence, unspecified, uncomplicated (ICD-10) Low back pain ?M54.50 - Low back pain, unspecified (ICD-10) Neck pain ?M54.2 - Cervicalgia (ICD-10) Osteoarthritis ?M19.90 - Unspecified osteoarthritis, unspecified site (ICD-10) Bipolar depression ?F31.9 - Bipolar disorder, unspecified (ICD-10) Carpal tunnel syndrome ?G56.00 - Carpal tunnel syndrome, unspecified upper limb (ICD-10) Chronic GERD ?K21.9 - Gastro-esophageal reflux disease without esophagitis (ICD-10) Acid reflux ?K21.9 - Gastro-esophageal reflux disease without esophagitis (ICD-10) Sleep apnea ?G47.30 - Sleep apnea, unspecified (ICD-10) High cholesterol ?E78.00 - Pure hypercholesterolemia, unspecified (ICD-10) Surgical History H/O neck surgery ?Z98.890 - Other specified postprocedural states (ICD-10) H/O elbow surgery ?Z98.890 - Other specified postprocedural states (ICD-10) H/O carpal tunnel repair ?Z98.890 - Other specified postprocedural states (ICD-10) Hx of tonsillectomy ?Z90.89 - Acquired absence of other organs (ICD-10) H/O eye surgery ?Z98.890 - Other specified postprocedural states (ICD-10) Meds Home Medications and Allergies Home Medications ?Medication ?Instructions ?Recorded ?Confirmed ?Type epinephrine 0.3 mg/0.3 mL 0.3 mg IM DAILY PRN anaphyla xis 08/30/23 05/02/25 History injection, auto-injector latanoprost 0.005 % eye drops 1 drp ophthalmic (eye) . QHS 08/30/23 05/02/25 History omeprazole 40 mg capsule,delayed 40 mg PO QAM 08/30/23 05/02/25 History release rosuvastatin 5 mg tablet 5 mg PO DAILY 08/30/2305/02 History cyclobenzaprine 5 mg tablet 5 mg PO DAILY 12/08/23 History famotidine 20 mg tablet mg 04/19/24 History gabapentin 100 mg capsule See Rx Instructions .Route 0 04/07/25 05/02/25 Rx .COMPLEX #120 caps gabapentin 100 mg capsule 200 mg (2 x 100 mg) PO BID # 120 05/11/25 Rx caps gabapentin 100 mg capsule 200 mg (2 x 100 mg) PO BID # 120 07/19/25 Rx caps Allergies Allergy/AdvReac Type Severity Reaction Status Date / Time bee venom protein (honey bee) Allergy Severe UNKNOWN Verified 05/02/25 07:21 Penicillins Allergy Severe LOSS OF Verified 05/02/25 07:21 CONCIOUSNESS Exam Constitutional Documenting provider has reviewed patient's vital signs: yes Common normals: no apparent distress, oriented x3, healthy appearing, alert and well nourished General appearance: cooperative [facility] Common normals: normocephalic, hearing grossly normal bilaterally and moist oral mucous membranes Head and scalp: normocephalic Eye Common normals: PERRL Pupil: PERRL Neck & C-Spine Common normals: full ROM General: normal visual inspection Chest Common normals: inspection of chest normal Respiratory Common normals: normal respiratory effort, no retractions and no use of accessory muscles Back & Pelvis Lumbar spine/lower back: ROM limited, pain with ROM, lumbar spinal tenderness and straight leg raise negative bilaterally Sacroiliac joints: SI joints normal Other: strength 5/5 in BLE sensation intact BLE Neuro Common normals: oriented x3 Sensorium/orientation: alert Psych Common normals: mental status grossly normal, thought process normal, cooperative, affect normal, speech normal and activity/motor behavior normal Speech: normal speech Thought process: normal thought process Results Additional Findings Additional findings: If on a controlled substance or opioids, I have checked an [place] report on this patient and there are no aberrancies noted in the prescribing history.??If on a controlled substance or opioid a drug screen was completed and reviewed within the last year, and if there has not been a drug screen completed we ordered one today to monitor higher risk, state monitored pain medication use. As part of providing excellent, safe, comprehensive care, the following was completed at our patient's visit: 1. A medication reconciliation and review to ensure accurate knowledge of current/active medications, including asking our patients to inform us about any [id number] medications or herbal remedies/nutritional supplements/alternative remedies. 2. A review to specifically ensure our patients have had annual screening for screening for depression, screening for tobacco use, and screening for unhealthy alcohol use. For concerning screenings had a discussion with the patient, provided patient education, and recommended follow-up with primary care provider when appropriate. If patient noted with a risk of falling, they received edu cation on strength, gait, and balance training to prevent future risk of falling. Portions of this note may have been carried over from the previous visit and updated as appropriate. Please note this office utilizes paper charting in addition to the electronic medical record. A list of current medications, vitals, and PMH is available there as the clinical staff outside of myself do not have access to [employer] charting during the clinic day operations. As part of providing quality comprehensive care the current medications, vitals, and PMH were reviewed in the paper chart. Assessment and Plan Assessment and Plan (1) Lumbar spondylosis: (2) Myofascial pain: (3) Lumbar stenosis with neurogenic claudication: Plan The patient has had over 3 months of moderate to severe low back pain with functional impairment and inadequate response to conservative care including NSAIDS (unless there are contraindication such as concurrent blood thinners), multiple oral or topical pain medications, and home exercise program/physical therapy.? Patient has completed >6 weeks of guided home exercise program and/or formal physical therapy program without relief of their symptoms.? The Oswestry Disability Index was completed, and the patient scored a 18%.? repeat bilateral L4-5 L5-S1 facet RFA under fluoroscopy for facet mediated low back pain update lumbar xray with flexion to evaluate stability due to pt reports of intermittent popping/shifting sensation continue HEP as tolerated continue current medications f/u 1 month after RFA complete
== END 2025-08-11 10:33 | disposition home or self-care (01) ==
PROVIDERS: PCP Family Medicine; Visit Provider Nurse Practitioner
DX: M47.816 Spondylosis without myelopathy or radiculopathy, lumbar region (principal); M79.18 Myalgia, other site; M48.062 Spinal stenosis, lumbar region with neurogenic claudication
CPT/HCPCS: 72114; G0463

== ENCOUNTER 2025-08-11 11:06 | Outpatient (OUT) | payer MEDICARE, MEDICAID, SELFPAY ==
--- OUTSIDE RECORDS SUMMARY | 2025-05-02 | XMS_ITS ---
Author Name Auto Generated Organization OHIP Care Team Providers Care Medical Technologist Microbiology Name Role Phone Lise RAWLS, Andrius Guaman Attending Unavailable Lise RAWLS, Andrius Vsaranya Attending Unavailable Lise RAWLS, Andrius Vytautas Attending Unavailable Lise RAWLS, Andrius Vytautlaurel Attending Unavailable Lise RAWLS, Andrius Deniz Attending Unavailable Lise RAWLS, Andrius Deniz Attending Unavailable SAVANNAH AYOUB Attending Unavailable MANI CARPENTER Attending Unavailable GÓMEZ SIDHU Attending Unavailable SAVANNAH AYOUB Attending Unavailable SAVANNAH AYOUB Attending Unavailable PROBLEMS No Problem Records Found PROCEDURES No Procedure Records Found RESULTS No Result Records Found ALLERGIES No Allergies Records Found ENCOUNTERS ADMIT/DISCHARGE ACCOUNT NUMBER ADMITTING ENCOUNTER CLASS LOCATION SOURCE 05/02/2025/ 5 [id number] [facility]/18[facility]2025/ 5 [id number] [facility]ulatory PM [facility] 03/23/2025/ 5 [id number] Ambulatory Building:[facility] 02/28/2025/ 5 [id number] [facility] 02/01/2025/ 5 [id number] Ambulatory Building:[facility] 01/31/2025/ 5 [id number] [facility] [facility] 01/25/2025/ 5 [id number] Ambulatory Building:[facility] 12/28/2024/ 5 [id number] Ambulatory Building:[facility] 09/13/2024/ 4 [id number] Ambulatory PM [place] 09/06/2024/ 4 [id number] Ambulatory Building:R [facility] 08/23/2024/ 4 [id number] Ambulatory PM [place] PAYERS ENCOUNTER GUARANTOR PAYER SUBSCRIBER SOURCE 05/02/2025 Rosa Moises: [place] [address] Primary Insurance:[employer] icy Number: Effective Date:2938-94-62Sjnb Name:KEYUR Willis [id number] [address]UZ: Rosa De Leon: [id number] [address] 04/18/2025 Rosa Moises: [place] [address] Primary Insurance:[employer] icy Number: Effective Date:4266-02-27Tcfm Name:COMP [address], [place] [address]LI: Rosa AcevedoB: [id number] [address] [facility] 03/23/2025 ROSA HU[place]ONOXDOB: [place] [address]Tel: (HP) (WP) Primary Insurance:[facility] [id number] ve Date:2022-12-11 ROSA DOUGLASOXDOB: [id number] [place] [id number] [facility] EPIC 02/28/2025 Rosa HudsonoxDOB: [place] [address] Primary Insurance:[employer] icy Number: Effective Date:6044-64-40Hgzo Name:PELON Rogers [id number]: Rosa DouglasoxDOB: [id number] [place] [id number] [facility] 02/01/2025 ROSA HUDSONOXDOB: [place] [address]Tel: (HP) (WP) Primary Insurance:[facility]ICAID [facility]: [id number] ve Date:2022-12-11 ROSA DOUGLASOXDOB: [id number] [place] [id number] [facility] EPIC 01/31/2025 Rosa DouglasoxDOB: [place] [address] Primary Insurance:[employer] icy Number: Effective Date:4178-94-87Ymtb Name:COMP [place] [address]DZ: Rosa DouglasoxDOB: [id number] [place] [address] [facility] 01/25/2025 ROSA DOUGLASOXDOB: [address]Tel: (HP) (WP) Primary Insurance:[facility] [place]: [id number] Date:2022-12-11 ROSA HUDSONOXDOB: [id number] [address] [facility] 12/28/2024 ROSA DOUGLASOXDOB: [place] [address]Tel: (HP) (WP) Primary Insurance:[facility]ICAID [facility]: [id number] ve Date:2022-12-11 ROSA HUDSONOXDOB: [id number] [address] [facility] 09/13/2024 Rosa DouglasoxDOB: [place] [address] Primary Insurance:[employer] icy Number: Effective Date:4560-56-13Sqns Name:KEYUR Willis [id number], [place] [address]HW: Rosa HudsonoxDOB: [id number] [address] 09/06/2024 ROSA HUDSONOXDOB: [place] [address]Tel: (HP) (WP) Primary Insurance:[facility]ICAID [facility]: [id number] ve Date:2022-12-11 ROSA SIENAHOAOXDOB: [id number] [address] [facility] 08/23/2024 Rosa DouglasoxDOB: [place] [id number] Primary Insurance:[employer] icy Number: Effective Date:2335-39-54Tkan Name:KEYUR Willis [id number], [place] [address]FU: Rosa EastmanDOB: [id number] [address] [address] [facility]
--- OUTSIDE RECORDS SUMMARY | 2025-08-11 11:12 | XMS_ITS | Clinical Summary ---
[id number] [address] [place] [address] Care Team Providers Care Market Developer Name Role Phone Services, [facility] Primary Care Provider Allergies Active [...] Devices Not on file [address] [place] [address] [facility] MEDICAID Care Teams Market Developer Relationship Specialty Start Date End Date Services, [facility] [address] [place] PCP - General Family Medicine 05/03/21
--- OUTSIDE RECORDS SUMMARY | 2025-08-11 11:12 | XMS_ITS | Clinical Summary ---
Author Organization [facility] Address [address] [place] [address] Care Team Providers Care Forensic Science Examiner Name Role Phone RexBritt Primary Care Provider [phone] Jonn Singer MD Unavailable [phone] Charmaine Castro Unavailable Allergies Active Allergy Reactions [...] Insurance [employer] MEDICAID [place] Care Teams Forensic Science Examiner Relationship Specialty Start Date End Date Britt Goodman DO [address] [place] [address] PCP - General Family Medicine 11/10/23 Jonn Singer MD [address] [place], [place] [id number] Referring Physician Neurology 11/10/23 Charmaine Castro PA [address] [facility] [address] [place] [address] Physician Animal Rides Manager Neurology 02/01/25
--- NOTE | 2025-08-11 11:13 | XR_ITS ---
[facility] [place] [id number] Patient Name: ROSA MCNAMARA MRN: [id number] date: 1965 Sex: M Assigned Patient Location: [facility] Current Patient Location: [facility] Accession/Order Number: [id number] Exam Date: 08/11/2025 11:45 Report Date: 08/12/2025 13:06 At the request of: JEB BEE NP Procedure: XR lumbar spine 6V w bending LUMBAR SPINE - 7 views CLINICAL HISTORY: Lumbar Spondylosis COMPARISON: Lumbar spine 05/20/2024 FINDINGS: Vertebral body heights appear maintained. No significant disc height loss. Endplate and facet joint degenerative changes similar to the prior study. No pathological motion on flexion or extension views. SI joints demonstrate degenerative change. XR/XR lumbar spine 6V w bending IMPRESSION: DEGENERATIVE CHANGES INVOLVING THE LUMBAR SPINE WITHOUT SIGNIFICANT DISC HEIGHT LOSS. FINDINGS ARE SIMILAR TO THE PRIOR STUDY. Impression dictated by: Marbin Veras Jr., DEdilmaOEdilma 08/12/2025 1:06 PM Dictation Location: [place] [address] Electronically authenticated by: [id number] Y Date: 08/12/2025 13:06
== END 2025-08-11 11:07 | disposition home or self-care (01) ==
PROVIDERS: Visit Provider Nurse Practitioner
DX: M47.816 Spondylosis without myelopathy or radiculopathy, lumbar region (principal); M51.369 Other intervertebral disc degeneration, lumbar region without mention of lumbar back pain or lower extremity pain
CPT/HCPCS: 72114

== ENCOUNTER 2025-08-29 09:03 | Day surgery (SDC) | payer MEDICARE, MEDICAID, SELFPAY ==
--- OUTSIDE RECORDS SUMMARY | 2025-08-29 09:07 | XMS_ITS | CCD ---
Author Organization [facility] Care Team Providers Care Python Programmer Name Role Phone Harvey Holt Unavailable NON STAFF Primary Care Provider UnavailDAPHNEY Sotelo Attending Provider Rumschlag, DO Britt Primary Care Provider Rummassiellayamila, DO Britt Primary Care Provider MD Josué Evangelista Attending Provider Rumschlayamila, DO Britt Primary Care Provider MD Josué Evangelista Attending Provider [phone] Candida Sidhu Admitting Unavailable Candida Sidhu Attending [...] Britt Primary Care Unavailable Josué Evangelista Unavailable [facility] Primary Care Unava ilable MITCHELL TRAYLOR Admitting Unavailable MERCEDES ENRIQUEZ Consulting Unavailable MITCHELL TRAYLOR Attending Unavailable MANI HARGROVE Consulting Unavailable MITCHELL TRAYLOR Consulting Unavailable RADHA, DR GARCIAS Attending Unavailable MISJono, DR GARCIAS Consulting Unavailable [facility] Primary Care Unava ilable RADHA, DR GARCIAS Admitting Unavailable RUMSCHLAG, BRITT Primary Care Unavailable YVONNE CAMARENA Referring Unavailable YVONNE CAMARENA Referring Unavailable RUMSCHLAG, BRITT Primary Care Unavailable CANDIS RENTERIA Admitting Unavailable CANDIS RENTERIA Attending Unavailable RUMSCHLAG, BRITT Primary Care [facility]available [facility] Primary Care Provider Mani Carpenter MD Unavailable [phone] [facility] Primary Care Provider Mani Carpenter MD Unavailable Unavailable Charmaine Adkins Unavailable CHARMAINE CASTRO Attending Unavailable CHARMAINE CASTRO Attending Unavailable CANDIDA SIDHU Attending Unavailable MANI CARPENTER Attending Unavailable CANDIDA SIDHU Attending Unavailable CHARMAINE CASTRO Attending Unavailable Rex LEA Britt Primary Care Provider Charmaine Ackerman APRN Attending Provider Giedraitis MD, Andrius Vytautas Attending Unavailable Giedraitis MD, Andrius Vytautas Attending Unavailable Giedraitis MD, Andrius Vytautas Attending Unavailable Giedraitis MD, Andrius Vytautas Attending Unavailable Giedraitis MD, Andrius Vytautas Attending Unavailable Giedraitis MD, Andrius Vytautas Attending Unavailable Giedraitis MD, Andrius Vytautas Attending Unavailable Allergies Allergy Classification Reported Allergen(s) Allergy Type Date of Onset Reaction(s) Facility (8 sources) penicillAMINE Drug Allergy 06-09-20 25 Unknown, Unknown Reaction [facility] (7 sources) Bee Sting Drug allergy Unknown [employer] Other (18 sources) Penicillins; Translations: [Penicillins] Allergy to substance 05-07-20 17 Unknown Reaction [facility] (6 sources) venom-honey bee; Translations: [venom-honey bee] Allergy to substance 10-02-20 21 Swelling [facility] (1 source) bee venom Drug allergy (disorder) [facility] (1 source) Penicillin Drug Allergy [facility] (4 sources) Bee Venom Protein (Honey Bee) Propensity to adverse reactions to drug 05-03-20 21 Unknown Reaction [facility] (5 sources) Honey bee venom Propensity to adverse reactions 12-28-19 25 [facility] Medications Current Medications Medication Drug Class(es) Dates Sig (Normalized) Sig (Original) 12 hr buPROPion hydrochloride 150 mg extended release oral tablet (4 sources) Aminoketone take 1 tablet by mouth once daily, then take 1 tablet by mouth twice daily buPROPion HCl ER (SR) 150 MG take 1 tablet by mouth daily for 1 week then take 1 tablet twice a day Oral for 30 Active cyclobenzaprine hydrochloride 5 mg oral tablet (10 sources) Muscle Relaxant Start: 05-26-2025 take 2 tablets by mouth once daily at bedtime Cyclobenzaprine 5 mg tablet Active 10 MG PO Daily at bedtime 60 30 May 26, 2025 12:00am Complies with drug therapy Start: 03-16-2025 take 2 tablets by mo uth at bedtime cyclobenzaprine (Flexeril) 5 MG tablet Indications: Radiculopathy, cervical region TAKE 2 TABLETS BY MOUTH AT BEDTIME 30 tablet 1 03/16/2025 Active Start: 12-27-2024 take 2 tablets by mo uth at bedtime cyclobenzaprine (Flexeril) 5 MG tablet [...] split. 60 tablet 2 03/23/2025 04/22/2025 Active famotidine 20 mg oral tablet (1 source) Histamine-2 Receptor Antagonist Start: 06-09-2025 take 1 tablet by mouth once daily at bedtime Famotidine 20 mg tablet Active 20 MG PO Daily at bedtime June 09, 2025 12:00am Complies with drug therapy gabapentin 100 mg oral capsule (10 sources) Anti-epileptic Agent Start: 06-09-2025 take 2 capsules by mouth twice daily Gabapentin 100 mg capsule Active 200 MG PO Twice daily June 09, 2025 12:00am Complies with drug therapy take 2 capsules by mouth in the morning gabapentin (Neurontin) 100 MG capsule Take 200 mg by mouth in the morning and 200 mg before bedtime. Active take 1 capsule by mouth in the m orning gabapentin (Neurontin) 100 MG capsule Take 100 mg by mouth in the morning and 100 mg before bedtime. Active latanoprost 0.05 mg/ml ophthalmic solution (20 sources) Prostaglandin Analog Start: 08-01-2022 take 1 drop(s) into the eye(s) once daily in the evening latanoprost (XALATAN) 0.005 % ophthalmic solution place 1 drop into both eyes every evening as directed 08/01/2022 Active Start: 10-02-2021 take 1 drop(s) into the eye(s) once daily at bedtime Latanoprost 0.005 % drops Active 1 DROPS EYE-BOTH Daily at bedtime October 02, 2021 1:00am Complies with drug therapy Start: 10-02-2021 take 1 drop(s) into the [...] tablet (3 sources) Nonsteroidal Anti-inflammatory Drug Start: 7 take 1 tablet by mouth twice daily for pain naproxen (NAPROSYN) 500 mg tablet take 1 tablet by mouth twice a day if needed for pain for 14 days 0 04/21/2017 Active omeprazole 40 mg delayed release oral capsule (10 sources) Proton Pump Inhibitor Start: 5 take 1 capsule by mouth once daily Omeprazole 40 mg capsule,delayed release(DR/EC) Active 40 MG PO Daily June 09, 2025 12:00am Complies with drug therapy take 1 capsule by mouth before m ealtime omeprazole (PriLOSEC) [address] capsule Take 40 mg by mouth in the morning. Take before meals. Do not crush or chew. Active rosuvastatin calcium 10 mg oral tablet (19 sources) HMG-CoA Reductase Inhibitor Start: 06-09-2025 take 1 tablet by mouth once daily Rosuvastatin 10 mg tablet Active 10 MG PO Daily June 09, 2025 12:00am Complies with drug therapy Start: 08-29-2022 End: 06-09-2025 take 1 tablet by mouth once daily Rosuvastatin 5 mg tablet Discontinued 5 MG PO Daily January 13, 2023 1:00am June 09, 2025 11:47am take 1 tablet by quinton th once daily rosuvastatin (Crestor) 10 MG tablet Take 10 mg by mouth Daily Active Completed/Discontinued Medications Medication Drug Class(es) Dates Sig (Normalized) Sig (Original) acetaminophen 500 mg oral tablet (3 sources) Start: 01-13-2023 End: 06-09-2025 take 2 tablets by mouth twice daily as needed for pain Acetaminophen 500 mg Tablet Discontinued 1000 MG PO Twice daily as needed for Pain January 13, 2023 1:00am June 09, 2025 11:46am Start: 01-13-2023 take 1000 mg by mout h twice daily Acetaminophen Active 1000 MG PO Twice daily January 13, 2023 1:00am calcium carbonate 500 mg chewable tablet (3 sources) Start: 01-13-2023 End: 06-09-2025 take 1 tablet by mouth twice daily as needed for gastroesophageal reflux disease Calcium Carbonate (Tums) 200 mg calcium (500 mg) Tablet,Chewable Discontinued 600 MG PO Twice daily as needed for Heartburn January 13, 2023 1:00am June 09, 2025 11:46am cephalexin 500 mg oral capsule (2 sources) Cephalosporin Antibacterial Start: 01-22-2023 End: 06-09-2025 take 1 capsule by mouth three times daily Cephalexin 500 mg capsule Discontinued 500 MG PO Three times daily January 22, 2023 12:00am June 09, 2025 11:47am diazePAM 5 mg oral tablet (5 sources) Benzodiazepine Start: 10-17-2021 End: 01-13-2023 take 1 tablet by mouth four times daily as needed for muscle spasms Diazepam 5 mg Tablet Discontinued 5 MG PO Four times daily as needed for Muscle Spasm 40 10 October 17, 2021 1:00am January 13, 2023 9:23am ibuprofen 200 mg oral tablet (3 sources) Nonsteroidal Anti-inflammatory Drug Start: 01-13-2023 End: 06-09-2025 take 2 tablets by mouth once daily as needed for pain Ibuprofen 200 mg Tablet Discontinued 400 MG PO Daily as needed for Pain January 13, 2023 1:00am June 09, 2025 11:47am Start: 01-13-2023 take 400 mg by mouth once franco y Ibuprofen Active 400 MG PO Daily January 13, 2023 1:00am olopatadine 2 mg/ml ophthalmic solution (2 sources) Histamine-1 Receptor Inhibitor Start: 01-22-2023 End: 06-09-2025 take 1 drop(s) into the eye(s) once daily Olopatadine 0.2 % drops Discontinued 1 DROPS EYE-BOTH Daily January 22, 2023 12:00am June 09, 2025 11:47am Start: 01-22-2023 take 1 drop(s) into the eye(s) once daily Olopatadine Active 1 DROPS EYE-BOTH Daily January 22, 2023 12:00am oxyCODONE hydrochloride 5 mg oral tablet (7 sources) Opioid Agonist Start: 01-22-2023 End: 06-09-2025 take 5-10 mg by mouth every six hours as needed for pain Oxycodone 5 mg tablet Discontinued 5 - 10 MG PO Q6H as needed for Pain 25 8 January 22, 2023 June 09, 2025 11:47am Start: 10-17-2021 End: 01-13-2023 take 1 tablet by mouth every four to six hours as needed for pain Oxycodone 5 mg Tablet Discontinued 5 MG PO EVERY 4-6 HOURS as needed for Pain Scale 1 - 5 70 14 October 17, 2021 January 13, 2023 9:23am Problems Active Problems [...] upper limb] Chronic Other nervous system disorders (10 sources) Lesion of ulnar nerve, right upper limb; 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 EHR Cmte Other nervous system disorders (9 sources) Ulnar [...] cervical region] Onset: 09-19-2021 Resolved: 03-13-2022 Chronic Comment on above: Problem List clean-u p per request of Phys. EHR Cmte Spondylosis; intervertebral disc disorders; other back problems [...] post void residualon 12-14-2024 Volume 87 mL [facility] Prostate specific Ag [Mass/V ol]on 12-09-2023 [facility] Prostatic specific antigen, diagnosticon 12-09-2023 Prostate specific Ag [Mass/Vol] 1.02 ng/mL 0.00 - 4.00 ng/mL [facility] Comment on above: The method used for this test is [employer] DXI chemiluminescent immunoassay. Values obtained by different assay methods cannot be used interchangeably. H. pylori Antigenon 10-16-20 H. pylori Antigen Specimen Description .FECES Direct Exam NEGATIVE Report Status FINAL 10/16/2023 Normal [facility] Comment on above: Performed By: #### F HPY #### [facility] [place] [facility] [address] [place], [place] [id number] Silverware Cleaner: Guy Ramey MD [facility] [address] [place] [address] Silverware Cleaner: Justus Darby MD Surgical Pathology Reporton 10-15-2023 Surgical Pathology Report (NOTE) Path Number: [id number] -- Diagnosis -- A. GE junction, endoscopic [...] for each. Microscopic examination performed. Processing Lab: [address] [id number] Interpretation Performed at [address] [id number] SURGICAL PATHOLOGY CONSULTATION Patient Name: ROSA EASTMAN [facility] Rec: [id number] [facility] ANATOMIC PATHOLOGY [address] [facility]. [place], [place] [address] Normal [facility] CBC with Diffon 10-14-2023 Abs. Basophil 0.17 k/uL Normal 0.00-0.20 [facility] Comment on above: Performed By: #### C DP #### [facility] [address] [place] [address] [place] [address] Silverware Cleaner: Justus Darby MD Abs.Imm.Granulocyte 0.04 k/uL Normal 0.00-0.30 [facility] Comment on above: Performed By: #### C DP #### [address] [place] [address] Silverware Cleaner: Justus Darby MD Abs.Neutrophil (Seg) 5.08 k/uL Normal 1.50-8.10 [facility] Comment on above: Performed By: #### C DP #### [facility] [address] [place] [address] [place] [address] Silverware Cleaner: Justus Darby MD Basophils/100 WBC (Bld) 2 % Normal 0-2 M [facility] Comment on above: Performed By: #### C DP #### [facility] [address] [place] [address] [place] [address] Silverware Cleaner: Justus Darby MD Eosinophils (Bld) [#/Vol] 0.43 10*3/uL Normal 0.00-0.44 [facility] Comment on above: Performed By: #### C DP #### [facility] [address] [place], [place] [address] Silverware Cleaner: Justus Darby MD Eosinophils/100 WBC (Bld) 4 % Normal 1-4 [facility] Comment on above: Performed By: #### C DP #### [address] [place], [place] [address] Silverware Cleaner: Justus Darby MD Erythrocyte distribution width (RBC) [Ratio] 12.3 % Normal 11.8-14.4 [facility] Comment on above: Performed By: #### C DP #### [address] [place], [facility] Silverware Cleaner: Justus Darby MD Hematocrit (Bld) [Volume fraction] 44.4 % Normal 40.7-50.3 [facility] Comment on above: Performed By: #### C DP #### [address] [place], [facility] Silverware Cleaner: Justus Darby MD Hemoglobin (Bld) [Mass/Vol] 14.6 g/dL Normal 13.0-17.0 [facility] Comment on above: Performed By: #### C DP #### [address] [place], [place] [address] Silverware Cleaner: Justus Darby MD Immature granulocytes/100 WBC (Bld) 0 % Normal 0 [facility] Comment on above: Performed By: #### C DP #### [address] [place], [place] [address] Silverware Cleaner: Justus Darby MD Lymphocytes (Bld) [#/Vol] 3.86 10*3/uL High 1.10-3.70 [facility] Comment on above: Performed By: #### C DP #### [facility] [address] [place], [place] [phone] Silverware Cleaner: Justus Darby MD Lymphocytes/100 WBC (Bld) 36 % Normal 24-43 [facility] Comment on above: Performed By: #### C DP #### [facility] [address] [place], [place] [id number] Silverware Cleaner: Justus Darby MD MCH (RBC) [Entitic mass] 30.9 pg Normal 25.2-33.5 [facility] Comment on above: Performed By: #### C DP #### [facility] [address] [place], [place] [id number] Silverware Cleaner: Justus Darby MD MCHC (RBC) [Mass/Vol] 32.9 g/dL Normal 28.4-34.8 [facility] Comment on above: Performed By: #### C DP #### [address] [place], [facility] Silverware Cleaner: Justus Darby MD MCV (RBC) [Entitic vol] 93.9 fL Normal 82.6-102.9 [facility] [place] Comment on above: Performed By: #### C DP #### [address] [place], [place] [id number] Silverware Cleaner: Justus Darby MD Monocytes (Bld) [#/Vol] 1.05 10*3/uL Normal 0.10-1.20 [facility] Comment on above: Performed By: #### C DP #### [facility] [address] [place], [place] [id number] Silverware Cleaner: Justus Darby MD Monocytes/100 WBC (Bld) 10 % Normal 3-12 M [facility] Comment on above: Performed By: #### C DP #### [facility] [address] [place], [place] [id number] Silverware Cleaner: Justus Darby MD Neutrophil (Seg) 48 % Normal 36-65 [facility] Comment on above: Performed By: #### C DP #### [facility] [address] [place], [place] [id number] Silverware Cleaner: Justus Darby MD NRBC Automated 0.0 per 100 WBC Normal 0.0 [facility] Comment on above: Performed By: #### C DP #### [facility] [address] [place], [place] [id number] Silverware Cleaner: Justus Darby MD Platelet mean volume (Bld) [Entitic vol] 9.6 fL Normal 8.1-13.5 [facility] Comment on above: Performed By: #### C DP #### [facility] [address] [place], [place] [phone] Silverware Cleaner: Justus Darby MD Platelets (Bld) [#/Vol] 297 10*3/uL Normal 138-453 [facility] Comment on above: Performed By: #### C DP #### [facility] [address] [place], [place] [id number] [employer] Cleaner: Justus Darby MD RBC (Bld) [#/Vol] 4.73 10*6/uL Normal 4.21-5.77 [facility] Comment on above: Performed By: #### C DP #### [facility] [address] [place] [address] Silverware Cleaner: Justus Darby MD WBC (Bld) [#/Vol] 10.6 10*3/uL Normal 3.5-11.3 [facility] Comment on above: Performed By: #### C DP #### [facility] [address] [place] [address] Silverware Cleaner: Justus Darby MD Basic Metabolic Panelon 03-0 Anion gap [Moles/Vol] 9.8 mmol/L Normal 6.0-15.0 [facility] Comment on above: Performed By: #### C BC, BMP #### [facility] [address] [place] [address] [place] Calcium [Mass/Vol] 9.1 mg/dL Normal 8.2-10.2 [facility] Comment on above: Result Comment: PERF ORMED BY: [place] [address] PATHOLOGIST HISTOLOGY ASSISTANT GENEVIEVE CANONN M.D. Performed By: #### C BC, BMP #### [facility] [address] Chloride [Moles/Vol] 104 mmol/L Normal 95-114 [facility] Comment on above: Performed By: #### C BC, BMP #### [facility] [address] CO2 [Moles/Vol] 25.9 mmol/L Normal 22.0-30.0 [facility] Comment on above: Performed By: #### C BC, BMP #### [address] Creatinine [Mass/Vol] 0.98 mg/dL Normal 0.64-1.27 [facility] Comment on above: Performed By: #### C BC, BMP #### [facility] [address] Estimated GFR ( Camila > 60 [facility] Comment on above: Result Comment: GFR estimated reference range: According to KDOQI guidelines, <60 ml/min/1.73m2 is sufficient to diagnose a patient with chronic kidney disease. Performed By: #### C BC, BMP #### [place] [address] [place] Estimated GFR (Non- Am > 60 Normal [facility] Comment on above: Performed By: #### C BC, BMP #### [facility] [address] [place] [address] [place] Glucose [Mass/Vol] 82 mg/dL Normal 70-100 [facility] Comment on above: Result Comment: [place] Glucose Reference Range is dependent on time and content of last meal. Glucose of more than 200 mg/dL in a nonstressed, ambulatory subject supports the diagnosis of Diabetes Mellitus. ADA recommended reference range Performed By: #### C BC, BMP #### [facility] [address] Potassium [Moles/Vol] 3.7 mmol/L Normal 3.5-5.1 [facility] Comment on above: Performed By: #### C BC, BMP #### [facility] [address] Sodium [Moles/Vol] 136 mmol/L Normal 136-146 [facility] Comment on above: Performed By: #### C MICHELLE, BMP #### [facility] [address] Urea nitrogen [Mass/Vol] 11 mg/dL Normal 9-23 [facility] Comment on above: Performed By: #### C MICHELLE, BMP #### [facility] [address] Basophils Auto (Bld) [#/Vol] Ordered By: Josué Evangelista on 01-13-2023 Basophils (Bld) [#/Vol] 0.1 10*3/uL 0.0-0.2 [facility] Basophils/100 WBC Auto (Bld) Ordered By: Josué Evangelista on 01-13-2023 Basophils/100 WBC (Bld) 1.2 % . [facility] Calcium [Mass/volume] in Ser um or PlasmaOrdered By: Josué Evangelista on 01-13-2023 Calcium [Mass/Vol] 9.1 mg/dL 8.2-10.2 [facility] Carbon dioxide, total [Moles /volume] in Serum or PlasmaOrdered By: Josué Evangelista on 01-13-2023 CO2 [Moles/Vol] 25.9 mmol/L 22.0-30.0 [facility] Chloride [Moles/volume] in S lai or PlasmaOrdered By: Josué Evangelista on 01-13-2023 Chloride [Moles/Vol] 104 mmol/L 95-114 [facility] Complete Blood Count Auto Di ffon 01-13-2023 Basophils (Bld) [#/Vol] 0.1 10*3/uL Normal 0.0-0.2 [facility] Comment on above: Result Comment: PERF ORMED BY: [place] [address] PATHOLOGIST HISTOLOGY ASSISTANT GENEVIEVE CANNON M.D. Performed By: #### C BC, BMP #### [facility] [address] Basophils/100 WBC (Bld) 1.2 % Normal . [facility] Comment on above: Performed By: #### C BC, BMP #### [facility] [address] [place] [address] [place] Eosinophils (Bld) [#/Vol] 0.5 10*3/uL High 0.0-0.45 [facility] Comment on above: Performed By: #### C BC, BMP #### [address] Eosinophils/100 WBC (Bld) 4.7 % Normal . [facility] Comment on above: Performed By: #### C BC, BMP #### [address] Erythrocyte distribution width (RBC) [Ratio] 12.6 % Normal 12.0-14.8 [facility] Comment on above: Performed By: #### C BC, BMP #### [address] Hematocrit (Bld) [Volume fraction] 41.2 % Normal 38.8-50.0 [facility] Comment on above: Performed By: #### C BC, BMP #### [facility] [address] [place] [address] [place] Hemoglobin (Bld) [Mass/Vol] 14.1 g/dL Normal 13.0-17.0 [facility] Comment on above: Performed By: #### C BC, BMP #### [address] Lymphocytes (Bld) [#/Vol] 3.4 10*3/uL Normal 1.00-4.8 [facility] Comment on above: Performed By: #### C BC, BMP #### [facility] [address] [place] [address] [place] Lymphocytes/100 WBC (Bld) 33.3 % Normal . [facility] Comment on above: Performed By: #### C BC, BMP #### [facility] [address] MCH (RBC) [Entitic mass] 31.7 pg Normal 27.5-35.2 [facility] Comment on above: Performed By: #### C BC, BMP #### [facility] [address] MCV (RBC) [Entitic vol] 92.3 fL Normal 83.5-101 [facility] Comment on above: Performed By: #### C BC, BMP #### [facility] [address] Mean Corpuscular HGB Conc 34.4 g/dL Normal 32.5-35.6 [facility] Comment on above: Performed By: #### C BC, BMP #### [facility] [address] [place] [address] [place] Monocytes (Bld) [#/Vol] 1.0 10*3/uL High 0.0-0.8 [facility] Comment on above: Performed By: #### C BC, BMP #### [facility] [address] [place] [address] [place] Monocytes/100 WBC (Bld) 10.1 % Normal . [facility] Comment on above: Performed By: #### C BC, BMP #### [facility] [address] [place] [address] [place] Neutrophils (Bld) [#/Vol] 5.2 10*3/uL Normal 1.8-7.7 [facility] Comment on above: Performed By: #### C BC, BMP #### [facility] [address] [place] [address] [place] Neutrophils/100 WBC (Bld) 50.7 % Normal . [facility] Comment on above: Performed By: #### C BC, BMP #### [facility] [address] NRBC% 0.1 /100{WBC} Normal 0-0.5 [facility] Comment on above: Performed By: #### C BC, BMP #### [facility] [address] Platelet mean volume (Bld) [Entitic vol] 7.8 fL Normal 6.6-10.1 [facility] Comment on above: Performed By: #### C BC, BMP #### [facility] [address] [place] [address] [place] Platelets (Bld) [#/Vol] 268 10*3/uL Normal 150-450 [facility] Comment on above: Performed By: #### C BC, BMP #### [facility] [address] RBC (Bld) [#/Vol] 4.46 10*6/uL Normal 3.90-5.60 [facility] Comment on above: Performed By: #### C BC, BMP #### [facility] [address] WBC (Bld) [#/Vol] 10.3 10*3/uL Normal 4.1-10.5 [facility] Comment on above: Performed By: #### C BC, BMP #### [address] Creatinine and Glomerular fi ltration rate.predicted panel (S/P/Bld)Ordered By: Josué Evangelista on 01-13-2023 Creatinine [Mass/Vol] 0.98 mg/dL 0.64-1.27 [facility] ECG 12 lead ECGon 01-13-2023 ECG 12 lead ECG [facility] [place] [address] [place] [address] Electrocardiograph Report Signed Patient: Rosa Eastman MR#: [id number] : 1965 Acct:[id number] Age/Sex: 57 / M ADM Date: 01/13/23 Loc: PS Room: Type: DEP CLI Attending Dr: Josué Evangelista MD Ordering [...] Marylin Eisenberg MD 0 01/14/23 1534 Normal [facility] Eosinophils Auto (Bld) [#/Vo l]Ordered By: Josué Evangelista on 01-13-2023 Eosinophils (Bld) [#/Vol] 0.5 10*3/uL 0.0-0.45 [facility] Eosinophils/100 WBC Auto (Bl d)Ordered By: Josué Evangelista on 01-13-2023 Eosinophils/100 WBC (Bld) 4.7 % . [facility] Erythrocyte distribution wid th Auto (RBC) [Ratio]Ordered By: Josué Evangelista on 01-13-2023 Erythrocyte distribution width (RBC) [Ratio] 12.6 % 12.0-14.8 [facility] Estimated glomerular filtrat ion rate (GFR) non- AmericanOrdered By: Josué Evangelista on 01-13-2023 GFR/1.73 sq M.predicted among non-blacks MDRD (S/P/Bld) [Vol rate/Area] > 60 mL/Min [facility] Glucose [Mass/volume] in Ser um or PlasmaOrdered By: Josué Evangelista on 01-13-2023 Glucose [Mass/Vol] 82 mg/dL 70-100 [facility] Comment on above: ADA recommended refe rence rangeRandom Glucose Reference Range is dependent on time and content of last meal. Glucose of more than 200 mg/dL in a nonstressed, ambulatory subject supports the diagnosis of Diabetes Mellitus. Hematocrit Auto (Bld) [Volum e fraction]Ordered By: Josué Evangelista on 01-13-2023 Hematocrit (Bld) [Volume fraction] 41.2 % 38.8-50.0 [facility] Hemoglobin [Mass/volume] in BloodOrdered By: Josué Evangelista on 01-13-2023 Hemoglobin (Bld) [Mass/Vol] 14.1 g/dL 13.0-17.0 [facility] Leukocytes [#/volume] correc lesly for nucleated erythrocytes in Blood by Automated counOrdered By: Josué Evangelista on 01-13-2023 WBC corrected for nucl RBC Auto (Bld) [#/Vol] 10.3 10*3/uL 4.1-10.5 [facility] Lymphocytes Auto (Bld) [#/Vo l]Ordered By: Josué Evangelista on 01-13-2023 Lymphocytes (Bld) [#/Vol] 3.4 10*3/uL 1.00-4.8 [facility] Lymphocytes/100 WBC Auto (Bl d)Ordered By: Josué Evangelista on 01-13-2023 Lymphocytes/100 WBC (Bld) 33.3 % . [facility] MCH Auto (RBC) [Entitic mass ]Ordered By: Josué Evangelista on 01-13-2023 MCH (RBC) [Entitic mass] 31.7 pg 27.5-35.2 [facility] MCHC Auto (RBC) [Mass/Vol]Or dered By: Josué Evangelista on 01-13-2023 MCHC (RBC) [Mass/Vol] 34.4 g/dL 32.5-35.6 [facility] MCV Auto (RBC) [Entitic vol] Ordered By: Josué Evangelista on 01-13-2023 MCV (RBC) [Entitic vol] 92.3 fL 83.5-101 [facility] Monocytes Auto (Bld) [#/Vol] Ordered By: Josué Evangelista on 01-13-2023 Monocytes (Bld) [#/Vol] 1.0 10*3/uL 0.0-0.8 [facility] Monocytes/100 WBC Auto (Bld) Ordered By: Josué Evangelista on 01-13-2023 Monocytes/100 WBC (Bld) 10.1 % . [facility] Neutrophils Auto (Bld) [#/Vo l]Ordered By: Josué Evangelista on 01-13-2023 Neutrophils (Bld) [#/Vol] 5.2 10*3/uL 1.8-7.7 [facility] Neutrophils/100 WBC Auto (Bl d)Ordered By: Josué Evangelista on 01-13-2023 Neutrophils/100 WBC (Bld) 50.7 % . [facility] No Panel InformationOrdered By: Josué Evangelista on 01-13-2023 Estimated GFR () > 60 mL/Min [facility] Comment on above: GFR estimated refere nce range: According to KDOQI guidelines, <60 ml/min/1.73m2 is sufficient to diagnose a patient with chronic kidney disease. Pharmacy Creatinine Clearance (Chem N/A [facility] Nucleated erythrocytes [Pres ence] in Blood by Automated countOrdered By: Josué Evangelista on 01-13-2023 Nucleated RBC Auto Ql (Bld) 0.1 /100{WBC} 0-0.5 [facility] Platelet mean volume Auto (B ld) [Entitic vol]Ordered By: Josué Evangelista on 01-13-2023 Platelet mean volume (Bld) [Entitic vol] 7.8 fL 6.6-10.1 [facility] Platelets Auto (Bld) [#/Vol] Ordered By: Josué Evangelista on 01-13-2023 Platelets (Bld) [#/Vol] 268 10*3/uL 150-450 [facility] Potassium [Moles/volume] in Serum or PlasmaOrdered By: Josué Evangelista on 01-13-2023 Potassium [Moles/Vol] 3.7 mmol/L 3.5-5.1 [facility] RBC Auto (Bld) [#/Vol]Ordere d By: Josué Evangelista on 01-13-2023 RBC (Bld) [#/Vol] 4.46 10*6/uL 3.90-5.60 [facility] Serum or plasma anion gap de terminationOrdered By: Josué Evangelista on 03-06-2023 Anion gap [Moles/Vol] 9.8 mmol/L 6.0-15.0 [facility] Sodium [Moles/volume] in Ser um or PlasmaOrdered By: Josué Evangelista on 01-13-2023 Sodium [Moles/Vol] 136 mmol/L 136-146 [facility] Urea nitrogen [Mass/volume] in Serum or PlasmaOrdered By: Josué Evangelista on 01-13-2023 Urea nitrogen [Mass/Vol] 11 mg/dL 9-23 [facility] WBC Auto (Bld) [#/Vol]Ordere d By: Josué Evangelista on 01-13-2023 WBC (Bld) [#/Vol] 10.3 10*3/uL 4.1-10.5 [facility] XR cerv spine AP/LAT/FLX/EXT on 12-06-2022 XR cerv spine AP/LAT/FLX/EXT [facility] [place] [address] XRay Report Signed Patient: Rosa Eastman MR#: [id number] : 1965 Acct:[id number] Age/Sex: 57 / M ADM Date: 12/06/22 Loc: XD Room: Type: [facility] Attending Dr: oJsué Evangelista MD Copies to: Josué Evangelista MD [...] Erasmo Maddox M.D.12/06/2022 2:26 PM Dictation Location: [place] [address] Transcribed By: [facility] 12/06/221425 Dictated By: Erasmo Maddox DO 12/06/221421 Signed By: 12/06/22 142 [facility] CBC AUTO DIFFon 08-10-2022 BASO # 0.2 103/ul Critically high 0.0-0.1 [facility] Comment on above: Performed By: #### C BC #### [facility] [address] [address] [address] Mars Sanders Basophils/100 WBC (Bld) 2.0 % Normal 0.2-2.0 [facility] Comment on above: Performed By: #### C BC #### [facility] [address] [address] [address] Mars Sanders EO # 0.5 103/ul Normal 0.0-0.7 [facility] Comment on above: Performed By: #### C BC #### [facility] [address] [address] [address] Mars Sanders Eosinophils/100 WBC (Bld) 5.7 % Normal 0.9-7.0 [facility] Comment on above: Performed By: #### C BC #### [facility] [address] [address] [address] Mars Sanders Erythrocyte distribution width (RBC) [Ratio] 12.4 % Normal 11.0-15.0 [facility] Comment on above: Performed By: #### C BC #### [facility] [address] [address] [address] Mars Sanders Hematocrit (Bld) [Volume fraction] 41.8 % Critically low 42.0-54.0 [facility] Comment on above: Performed By: #### C BC #### [facility] [address] [address] [address] Mars Sanders Hemoglobin (Bld) [Mass/Vol] 14.0 g/dL Normal 14.0-18.0 [facility] Comment on above: Performed By: #### C BC #### [facility] [address] [place] [address] Dr. Mars Sanders IG # 0.02 10e3/ul Normal 0.00-0.03 [facility] Comment on above: Performed By: #### C BC #### [facility] [address] [place] [address] Dr. Mars Sanders IG % 0.2 % Normal 0.0-0.5 [facility] Comment on above: Performed By: #### C BC #### [facility] [address] [place] [address] Dr. Mars Sanders LYMPH # 3.1 103/ul Normal 1.2-3.8 [facility] Comment on above: Performed By: #### C BC #### [facility] [address] [place] [address] Dr. Mars Sanders Lymphocytes/100 WBC (Bld) 36.3 % Normal 20.5-60.0 [facility] Comment on above: Performed By: #### C BC #### [facility] [address] [place] [address] Dr. Mars Sanders MANUAL DIFF REQ NO Normal [facility] Comment on above: Performed By: #### C BC #### [facility] [address] [place] [address] Dr. Mars Sanders MCH (RBC) [Entitic mass] 31.4 pg Normal 25.9-34.0 [facility] Comment on above: Performed By: #### C BC #### [facility] [address] [place] [address] Dr. Mars Sanders MCHC (RBC) [Mass/Vol] 33.5 g/dL Normal 29.9-35.2 [facility] Comment on above: Performed By: #### C BC #### [facility] [address] [place] [address] Dr. Mars Sanders MCV (RBC) [Entitic vol] 93.7 fL Normal 80.0-94.0 [facility] Comment on above: Performed By: #### C BC #### [facility] [address] [place] [address] Dr. Mars Sanders MONO # 0.8 103/ul Normal 0.3-0.8 [facility] Comment on above: Performed By: #### C BC #### [facility] [address] [address] [address] Mars Sanders Monocytes/100 WBC (Bld) 10.0 % Normal 1.7-12.0 [facility] Comment on above: Performed By: #### C BC #### [facility] [address] [place] [address] Dr. Mars Sanders NEUT # 3.9 103/ul Normal 1.4-6.5 [facility] Comment on above: Performed By: #### C BC #### [facility] [address] [place] [address] Dr. Mars Sanders Neutrophils/100 WBC (Bld) 45.8 % Normal 43.0-75.0 [facility] Comment on above: Performed By: #### C BC #### [facility] [address] [place] [address] Dr. Mars Sanders Platelet mean volume (Bld) [Entitic vol] 9.4 fL Critically low 9.5-13.5 [facility] Comment on above: Performed By: #### C BC #### [facility] [address] [place] [address] Dr. Mars Sanders PLT 251 103/ul Normal 150-450 [facility] Comment on above: Performed By: #### C BC #### [facility] [address] [place] [address] Dr. Mars Sanders RBC 4.46 106/ul Critically low 4.70-6.10 [facility] Comment on above: Performed By: #### C BC #### [facility] [address] [place] [address] Dr. Mars Sanders WBC 8.4 103/ul Normal 4.0-11.0 [facility] Comment on above: Performed By: #### C BC #### [facility] [address] [place] [address] Dr. Mars Sanders D-DIMERon 08-10-2022 D-DIMER 0.35 mg/L FEU Normal <=0.59 [facility] Comment on above: Performed By: #### D DIM #### [facility] [address] [place] [address] Dr. Mars Sanders D-DIMER COMMENTS SEE BELOW Normal [facility] Comment on above: Result Comment: Incr [...] hospitalization. Performed By: #### D DIM #### [facility] [address] [place] [address] Dr. Mars Sanders PROF 14(COMP METB)on 022 Albumin [Mass/Vol] 3.8 g/dL Normal 3.4-5.0 [facility] Comment on above: Performed By: #### H ALESSIO, CMP #### [facility] [address] [place] [address] Dr. Mars Sanders Albumin/Globulin [Mass ratio] 1.0 {ratio} Normal [facility] Comment on above: Performed By: #### H ALESSIO, CMP #### [facility] [address] [place] [address] Dr. Mars Sanders ALP [Catalytic activity/Vol] 127 U/L Critically high 46-116 [facility] Comment on above: Performed By: #### H ALESSIO, CMP #### [facility] [address] [place] [address] Dr. Mars Sanders ALT [Catalytic activity/Vol] 30 U/L Normal 16-63 [facility] Comment on above: Performed By: #### H ALESSIO, CMP #### [facility] [address] [place] [address] Dr. Mars Sanders Anion gap [Moles/Vol] 13.5 mmol/L Normal [facility] Comment on above: Performed By: #### H MIKEYPN, CMP #### [facility] [address] [place] [address] Dr. Mars Sanders AST [Catalytic activity/Vol] 20 U/L Normal 15-37 [facility] Comment on above: Performed By: #### H MIKEYPN, CMP #### [facility] [address] [place] [address] Dr. Mars Sanders Bilirubin [Mass/Vol] 0.3 mg/dL Normal 0.2-1.0 [facility] Comment on above: Performed By: #### H MIKEYPN, CMP #### [facility] [address] [place] [address] Dr. Mars Sanders Calcium [Mass/Vol] 8.7 mg/dL Normal 8.5-10.1 [facility] Comment on above: Performed By: #### H ALESSIO, CMP #### [facility] [address] [place] [address] Dr. Mars Sanders Chloride [Moles/Vol] 105 mmol/L Normal 98-107 [facility] Comment on above: Performed By: #### H MIKEYPN, CMP #### [facility] [address] [place] [address] Dr. Mars Sanders CO2 [Moles/Vol] 25.4 mmol/L Normal 21.0-32.0 [facility] Comment on above: Performed By: #### H STROPN, CMP #### [facility] [address] [place] [address] Dr. Mars Sanders Creatinine [Mass/Vol] 0.98 mg/dL Normal 0.70-1.30 [facility] Comment on above: Performed By: #### H STROPN, CMP #### [facility] [address] [place] [address] Dr. Mars Sanders EGFR-AF FAROESE >60 Normal >=60 [facility] Comment on above: Performed By: #### H MIKEYPN, CMP #### [facility] [address] [place] [address] Dr. Mars Sanders EGFR-NON AF FAROESE >60 Normal >=60 [facility] Comment on above: Performed By: #### H ALESSIO, CMP #### [facility] [address] [place] [address] Dr. Mars Sanders Globulin (S) [Mass/Vol] 3.9 g/dL Normal T [facility] Comment on above: Performed By: #### H MIKEYPN, CMP #### [facility] [address] [place] [address] Dr. Mars Sanders Glucose [Mass/Vol] 102 mg/dL Normal 74-106 [facility] Comment on above: Performed By: #### H ALESSIO, CMP #### [facility] [address] [place] [address] Dr. Mars Sanders Potassium [Moles/Vol] 3.9 mmol/L Normal 3.5-5.1 [facility] Comment on above: Performed By: #### H ALESSIO, CMP #### [facility] [address] [place] [address] Dr. Mars Sanders Protein [Mass/Vol] 7.7 g/dL Normal 6.4-8.2 [facility] Comment on above: Performed By: #### H ALESSIO, CMP #### [facility] [address] [place] [address] Dr. Mars Sanders Sodium [Moles/Vol] 140 mmol/L Normal 136-145 [facility] Comment on above: Performed By: #### H MIKEYPN, CMP #### [facility] [address] [place] [address] Dr. Mars Sanders Urea nitrogen [Mass/Vol] 14.0 mg/dL Normal 7.0-18.0 [facility] Comment on above: Performed By: #### H ALESSIO, CMP #### [facility] [address] [place] [address] Dr. Mars Sanders Urea nitrogen/Creatinine [Mass ratio] 14.3 mg/mg Normal [facility] Comment on above: Performed By: #### H MIKEYPN, CMP #### [facility] [address] [place] [address] Dr. Mars Sanders PROTIMEon 08-10-2022 INR Coag (PPP) [Relative time] 0.95 {INR} Normal [facility] Comment on above: Performed By: #### P T, PTT #### [facility] [address] [place] [address] Dr. Mars Sanders INR GUIDELINES SEE BELOW Normal [facility] Comment on above: Result Comment: EDU RED INR: 2.0 - 3.0 CONDITIONS NOT LISTED BELOW 2.5 - 3.5 FOR PROSTHETIC HEART VALVE REPLACEMENT 2.5 - 3.5 RECURRENT THROMBOSIS Performed By: #### P T, PTT #### [facility] [address] [place] [address] Dr. Mars Sanders PT Coag (PPP) [Time] 10.3 s Normal 9.0-11.6 [facility] Comment on above: Performed By: #### P T, PTT #### [facility] [address] [place] [address] Dr. Mars Sanders PTTon 08-10-2022 aPTT Coag (Bld) [Time] 29.9 s Normal 22.3-36.2 Th e [facility] Comment on above: Performed By: #### P T, PTT #### [facility] [address] [place] [address] Dr. Masr Sanders TROPONIN, HIGH SENSITIVITYon 08-10-2022 HSTROP 12.3 pg/mL Normal 4.0-76.1 [facility] Comment on above: Result Comment: CUT- OFF POINTS HAVE BEEN ESTABLISHED BASED ON THE FOURTH UNIVERSAL DEFINITIONS OF MYOCARDIAL INFARCTION. THE UPPER REFERENCE LIMIT (URL) OF TROPONIN, DEFINED THE 99TH PERCENTILE OF cTnI DISTRIBUTION IN A REFERENCE POPULATION, HAS BEEN CONFIRMED THE DECISION THRESHOLD FOR NM DIAGNOSIS. Performed By: #### H STROPN, CMP #### [facility] [address] [place] [address] Dr. Mars Sanders XR CHEST 1 Von [...] MANI HARGROVE Date: 2022-08-10 18:59 Normal [facility] MR head/brain wo conon 07-08 MR head/brain wo con [facility] [place] [address] [place] [address] MRI Report Signed Patient: Rosa Eastman MR#: [id number] : 1965 Acct:[id number] Age/Sex: 57 / M ADM Date: 07/08/22 Loc: [facility] Room: Type: [facility] Attending Dr: Candida Alexander PA-C Copies [...] Rob Funez M.D.07/08/2022 1:37 PM Dictation Location: [place] [address] Transcribed By: JERMAINE 07/08/22 1337 Dictated By: Rob Funez II, MD 07/08/22 1334 Signed By: 07/08/22 1337 Normal [facility] Folate [Mass/volume] in Seru m or PlasmaOrdered By: Candida Alexander on 06-21-2022 Folate [Mass/Vol] 7.4 ng/mL >5.9 [facility] Comment on above: Folate reference ran ge: >5.9 ng/ml The WHO technical consultation on folate and vitamin b12 deficiencies has determined that folate concentrations less than 4 ng/ml are considered deficient. Free T4 (Free Thyroxine)on 0 06-21-2022 Free T4 [Mass/Vol] 0.77 ng/dL Normal 0.61-1.12 [facility] Comment on above: Performed By: #### V [id number], T4F, TSH3 #### [facility] [address] [place] [address] #### METH #### [facility] , Laboratory - Chemistry and C hemistry - challengeOrdered By: Candida Alexander on 06-21-2022 Cobalamin (Vitamin B12) [Mass/Vol] 369 pg/mL 180-914 [facility] Methylmalonic Acidon 022 Methylmalonic Acid 241 Normal 0-378 [facility] Comment on above: Result Comment: This test was developed and its performance characteristics determined by [facility]. It has not been cleared or approved by the Food and Drug Administration. Performed at: [address] [id number] Silverware Cleaner: Millicent Calderon MD, Phone: [phone] PERFORMED BY: [place] [address] PATHOLOGIST HISTOLOGY ASSISTANT GENEVIEVE CANNON M.D. Performed By: #### V [id number], T4F, TSH3 #### [facility] [address] [place] [address] [place] #### METH #### [facility] , Serum or plasma methylmalona te measurement (moles/volume)Ordered By: Candida Alexander on 06-21-2022 Methylmalonate [Moles/Vol] 241 nmol/L 0-378 [facility] Comment on above: This test was develo ped and its performance characteristics determined by [facility]. It has not been cleared or approved by the Food and Drug Administration. Performed at: [address] [id number] Silverware Cleaner: Millicent Calderon MD, Phone: [phone] TSH DL <= 0.005 mIU/L QnOrde red By: Candida Alexander on 06-21-2022 TSH Qn 2.46 m[IU]/L 0.45-5.33 [facility] Thyroid Stimulating Hormoneo n 06-21-2022 TSH Qn 2.46 m[IU]/L Normal 0.45-5.33 [facility] Comment on above: Result Comment: PERF ORMED BY: [address] [place] [address] PATHOLOGIST HISTOLOGY ASSISTANT GENEVIEVE CANNON M.D. Performed By: #### V [id number], T4F, TSH3 #### [facility] [address] [place] [address] #### METH #### [facility] , Thyroxine (T4) free [Mass/vo lume] in Serum or PlasmaOrdered By: Candida Alexander on 06-21-2022 Free T4 [Mass/Vol] 0.77 ng/dL 0.61-1.12 [facility] Vit. B12/Folate Profileon Cobalamin (Vitamin B12) [Mass/Vol] 369 pg/mL Normal 180-914 [facility] Comment on above: Performed By: #### V [id number], T4F, TSH3 #### [facility] [address] [place] [address] [place] #### METH #### [facility] , Folate 7.4 ng/mL Normal >5.9 [facility] Comment on above: Result Comment: Rosa M te reference range: >5.9 ng/ml The WHO technical consultation on folate and vitamin b12 deficiencies has determined that folate concentrations less than 4 ng/ml are considered deficient. Performed By: #### V [id number], T4F, TSH3 #### [address] #### METH #### [facility] , Coding Summaryon 02-13-2022 Coding Summary HTMLBase 64 VqmwqoieFSz6qFx+PGhl YWQ+QX4PYECmU92gbCVe gT9SR0aNZI2EFSVEFRLK RA3KUV7hsOT9VVuvA9Cj biAv ZsisqGPuDG49EMp5TAG9 mQwlQBykhR1jkWEaL3b7 RlVpOR10oP97ZIxwCDYh BlC8BkTymlztzCLj B5qmQsCpeOFdAmy+PHRh YmxlIHdpZHRoPScxMDAl QlCtuJgwFI3mVm9rATJk LWNvbGxhcHNlOiBj m6reQWWfDVeyJF8faFzn X5UpdVS8MEPzq7e7Hr45 dHI+NVAzDTA8qCewKWmn i934JtDzl4crBII0 lGLnJMegNAZ4Z28cm2G9 HHVxZIUbZWV0bCE5kS8l iWtnhrgvI4NsuKYjGlE5 ZMB6pYKtqV5hfVgr sriokO7bRkk+A32XKE7Z PCQBSB1XZnc1Y7LbRvtk dHI+EV80VDZlYG29dORh oZHyq2fayWp0VlPo POGnTIH9rTupOOzgq7Sm LESuK85tbHHfl5C8PPGs tGdkgMSjOuNocNE3uN9v GBhzcselv2mzxiuq Twzdx3uupn13nR35O01u AKmlGADlPUM6IMJkLCWy mTkknp7fsV1hSr2+IDxj z1yxf5opaTm1AaSy ZOMhxgAgrZjmQFO4l9Ii Bf87W6WmsFjnq3IoTbp1 bz93aSVtr6Q1wXC7ATva LWCasH2fGDyyStZ3 OHUdUrDqnM89xDGoASbu Zg2hwPfprSyfIG6mYRXs cywaNXYyxB3hLHZgcEBb wMjcPD3dURQpcaui e615KtZdNIH2ILOrvBPn M3OpuW9yVgKqMBQzKMMo V1GcrXTuOZosI858EUwc OuU0DTGhblZyS7Jk FNUcjMrzZvF9q0S9Ub1B e2ZbnhjdSWW8TPspHQS2 UiL2AlFdKbA2P2FzCfm7 BTBswZttTE2lV8Az PCOfrhlzrtapeLH4UXEk TEXrrU15tCQyUCuxJn5s d6B8s189EVIhVPLhgV66 Sf5jnXuhXBWmdYNC qO0evcbuq6buifpgOsWe XNWnJFl6CQq6MLQsyKfz DnOdXSW0WxT7KYT2dTJw mL8ipWaqjkvxxH4p Oyc+W35kqA2aNKA1FBE6 fsofLLQmaiTwMN08EQ35 P4RuXgwuwFPszCV+PGRp ffDtkNkeYW6jAkNe z9ues3CeJFrdF2JsJSVl SFzrEwe2WABzEYK2wJX5 qX7iFBFmZHlxz4B4pYE9 Z7SnpnRhmg1aj9ut GPVwIOmlF12ioVOkn3P2 JYWbwNO5UNYxxDuoAfJq oK66Vtk+GMYvkLqzl9Zu Ffqqp8vpz9mbtJp7 IjMwJSIgdmFsaWduPSJ0 n5JoGm56T82yWXdmIABi GRRaXGIgZYJflDmwvs9e uY9cRh0+PGNvbCB3 aOV3rM4wGEJaQqP6KRoj R916UbIavCZuFfves1cv g0qigQs6BfUaRSUlmhRu uMdrATE9g3BuRj59 P11qWWboMPGwERHzHBRm TCVbrExbed6adP5bPg0+ HR9ey4rjsb84sR42eNJ+ IHUjAXF1dHohDCmv FWDnuB4tSNcfFpT3BCOj XsUwhZ46tYHuHQizGa7z lByayIglFI1rRYLqjuos y594JuLgn2jzWRKa dPLzHLwiSTW3G14vw3Z3 MDNwQEUtBLY8nDT1dI9k bGlnbjogbGVmdDsgdmVy jQfeLTovPVhkV084 IHRvcDsnPlBhdGllbnQg JnDcYBy3R7WkQgo6PJOb dVmiIY9jjFDgQMnrVx0u qSyybOloRN5oELMy hbvqs417MuPhs7wnXEWx qRNzWKabLST8H36vw4W5 ZZBwPKNiRTS4hTW1bE6w bGlnbjogbGVmdDsg ztJzsAvtOIjwZOucG800 IHRvcDsnPkJpcnRoIERh gVG0VN86AX66fNOra0S5 iUG9W0HqBPVxddiw yuxtaNC5FIVuUUEomX40 Xz9dbZiaFi6dTVCmXMZ9 MSLsbCTrR3HmuB8gXqEx QPDzQUBcI3MicCUn HIiaE678VBspYeQ3EHCd nhWzY7FbBWGrrPvdSaR3 q3I9Rw2UX5W3PX98AE78 kZTux4R0rQN9K7Lz LXBuutfuqmxqxGY8QIUo GUVzbQ97Lp8zfTknBc8m YJAlBLO8NYHmsCKfD0Mn fZ2eYuJmWGFyQHWd E5VhkNWzNJxoR534XByf IpH8RIKcrjNvJ8HhPOIa hJxoZqX5k7D1Qm9QAQy0 ZL55LE86eAKar8A2 hMT7F1VdBRPridgjwomo zTC4IDYoNKVmmD02Qr2y oWzoSs6vGTUzQJA6CNQo iPFwA5DauP4eWqAf QVZeZGLdC5ExlTYkPOlp S729QGovYjH4ADJrtnDz C7TiYKKuyCmkYwW2j1G7 Sv7MKRHbHI16CRO8 nPP9VT09HT60H0TzQkkq dGFibGU+PHRhYmxlIHdp ZHRoPScxMDAlJyBzdHls QS8cWu8yHXNbKTTb sScqlALxFoXft7kdDKJj TJeiVP2qoBrlK6FfnMA8 SQJhh1b2Zf01S07sD7Pl dXA+ZHXhxFD3wSN5 nY9uNiKoYzJ3FUmwI642 NgRmpCFyZharp2epl7wq fFd5YtO5KMWdnvInlQlz IRH0d1HaBz77S94d IHdpZHRoPSIxNSUiIHZh yGuzhj9pmV7iJm2+PGNv uBP9fJX4dK1sQkNyOgP6 BXlsK205ZyGhlGMr Mtzpc2icb1akkQo7QvPt YZRexlLgeVirVXJ6y8Zn Cw95U2TeaMhpi1SxPvn6 vt50lMWku9Y6fXN4 J4LtZJAsyccvwCXikImw VK0eGFIxiqgbKRRsrD0z VWMbM3g8GjDzLlR6LXiq X8FeplA9BXSxxINx FYgoCZO0A40yq0O2QZHh IDQnZIE0uZM3dC0wjKeh bjogbGVmdDsgdmVydGlj SPtyVDefH717GOQd gSykHOHtfY1fEAHidPZm kWasOM5eAMOpdfmhMzMC Q0MPS35CSPBPX6PXWmZt XGjTRW81W5YnWfy8 TDSmdXdvEH7eoSJmYTui Gn6jjUwtoJzpLN6zPQHs myesJKUedB7nVIZupAHg qJtmEF6tHFVorodn l458CkKaHLL2AQUvmTVa K9NyqT2sWaYcILUpEOMu P6GhxOSdOXtxE042ODoc ZeN8QMYccwDbA2Xa RDAxiFwhBnP1p3E4Dh6l GG2bEq5dPYT4SH73HQ94 mAVwq0Q5kVS1N6CbQKTf ecpbxoarrVK7YBUc TNTwwY85tQHlHGpoWh1w c0D6a182UXTjIKTnnY41 Fq6xkZshXHZjbHIOgP0s sdyll6xeaxemRhZa NETbUGh8IKq6FKLxhHim ZdPbTMV5MyX2MUK0jSYx uP1feEbbesugbF9eMdv+ CPQdDKIfzoE6C9Ec Fbd7MDRzjQpnZJ4xbXXe GXoaRq6ukTuovDrhGR1n JADzeibsLTBxoS2eWASj yXYroCctOF0aCNIg pozty637AaKqYGC4JNXj oSVkT2HyzF0kJrIpRWPc ERTqS2PjfTCeYUfcA053 DYzmSuS1YHOrfhGn X1GlMEGujNrxOgI5x9N0 If8GJXxCUI82HC91nYVe j7R0vMR1H8KjWYFtricy fzopuPO2NBAhXPDf aX83jBPyMLhyLu1zy2K4 p107URZpJLMznE33Ca2r mAuiTIPegEBIjE6mfmke n4atjyaiJfArRMBr AKm0NYy2MLGmdYfrCuPb BWJ5CaZ1LIH4hVEupH8r pXuiaxpfjQ3mLwn+T1A8 G2GzMoigySU+PC90 YLOgVZ61uUTypNIri5lb vWp2RsCjLHYrCUR5jIco YItmp4KkWOKnR35qdYFh g5C1BDJivMzyjAQp VtNjoIL6nS3fWDkofbkd n7deonrlEghuy8avce79 zR77Q54qLVnwJZOlUKMo RDPwHRDelBifmk6y aK9kYo6+PHGlhZS2kML2 lM4jSqUxOdS4XAtxJ179 OkOhrRNpSupwh2klv9wl yTs4JsQgUIJzfdWm mUikFQC6a4IiSd16K84f IHdpZHRoPSIyMCUiIHZh mPweev9bjL6tGq6+PC9j l7mlkb11oB61gWK+ XMCrVCJ3hBxyCZusUCGw yU4cZVqhTfX5XWWkTmXu iD21dPFiDPwwCl5gtNtf wUefPK3mSRDncpse v324LqZjr0ywTPOkiVGq ZVqxRYT1E98oc1F1SBTv NCZbBMG3vLA6jC2qgFyb bjogbGVmdDsgdmVy tDjvIGzoHIfbI404UXQm dClhTaIewCZhK2svcpSO ML0gDdensCP+PHRkIHN0 tSyhKAsgIGLckL6m WCJrU7d2SbFdOtP6KUfe T4AlwkQ8YUJwbHAfSXKw xHQOnZ2ddahcw2kdjgef OyXaVUGuDLc3VEa0 UPPibMjdQgCsNTS5LuV7 ZSU8eNAorB1fdXliyllv bM8nOih+RklOOjwvdGQ+ XBWzDHW9oMjkRCnc TUXyoD8zXHZyS3o4QfYy IhI1ZTttB7QmcpR6TOXg hSImGYIndPXDiT9bbkmy y6zkveaqJtOmWQTr BYa2UJi2CMGphImzVjOd OAW2TxO1FNF1qVTikH9i oWtufoudqV3cAkr+TVJO OjwvdGQ+PHRkIHN0 nKtoBIcwCWMfsQ7oKBGe N9f1HtWiMlT5USpcW5Vi qjY0IBIclPVvCAZyxKIQ lJ7lvnoit5nfxtuk RySkFXFuZMu1AJw4WEAu kXkaEsIhWUO5HyV8RDH5 pEAciD2opRptmldknK4o Oyc+CGG9IOF2JA02 IM44H9DuGewqhUSqqLY+ PHRhYmxlIHdpZHRoPScx EPBtTnLiyRsaEI3yWb3v ZGVyLWNvbGxhcHNl OiB (more content not included)... [facility] Coding Summary HTMLBase 64 IczvstwcJIe2eOk+PGhl YWQ+UO0ZWZRnJ44jlYOr iV7PA5yWNA1AQGGLSEJN GV4AWS9lhNB7OGenD1Vp biAv DkvhdDVyXM55LXw0XAO7 nFruNZzjkZ1aiJQuC1w0 NlRwWV46mP45YQanLHPc LzS8ZuEljvjgjUTq C8uuHmQtePGaEfg+PHRh YmxlIHdpZHRoPScxMDAl VgWgtYivSV3pMo9rVMYv LWNvbGxhcHNlOiBj a9upXJGkZTrbTY6qaQbj C1OelCG4WZNgg6m4Tc45 dHI+UBDsLBG2sZntRXjf r079LrEsj3ivETJ9 dKQpOIlsJSS6A90aj3T5 WHPaTENhVTG0xRS1aV6x wMkaqccuA9NdfTAeAoP8 GSG0tXIouN1oaQob cqyqcH9cCsb+N58CJG0X TPCZAG3YJgf3I1AfQwsp dHI+BT81WTDhTH67iIPj zIZvc8lszFn0UdGq QQRhLVY9cJrzIQwxy1Cw TIRqC45zpMXid8N9RMRd mMlycTIsSmKeuPH9gA9k UKonbjpwi6fgsjkd Bnzsb2zsmi76dN43N14m PQgyHEGoLKE6GIVqZZXj aEmwof0xrM8hHw6+IDxj n8xli4tnjNc6QtZv FMAdayNilYmaAFP9s1Wp Dh81T3KbuFyho0JkOby6 wk26hNRxd5F3yZX2HIte JVIbnA9jPElfNwF7 GOFhXgNccT02oOKgSGql Iy4dcYdgzLipLQ3jCLMh yiuaALKsbH4eGAPilTBf gOvePA6qAGGwwpkq h237WiKcPFL2GSMlmPTu V2RnpB7hWuNmPUBvIYVr F1FprPKjVOwjY041HHaf ZmP4HHUcqcTcQ6Fp OUXryBvvAoP8c6H8Ez0H w6HcnehaZKK4JBpkSHP8 PwJ1AoHyJkM2P4GcWut6 YWHudVcwIH0xX2Qx SJTlkuviillvgBI8QEMz WUSlgL30sFBpKHxiMd4a e1M0k010WVUbNYPwjV83 Wn2nzXwbISBpyJGN bD3wrcnqt1vemtnbZzPn LXLgSUa1KKa3IJQefAtk OnWuRTZ3FlV0NHA8pJJt aF1mvEdkfnhngY8i Oyc+D74byC9kBSH9JQS6 vpnlTFGatiBrGD77UK37 D7PkKvamoYYjyDS+PGRp zpLbmIytIB9cWmNg f2aok5QkCHdpI3LeHRCe VIriNbo9NQZnPPX5bFM7 mR7tZDTqQZusw3F4oPF6 O0EbbhLfyt0yb9ui KQIlZAwcY95mpKNrn7T3 RPUibHH9RUFzrIazFhJi wU80Msx+SNFuoMcnt6Vz Gjadt5sai1iesFf9 IjMwJSIgdmFsaWduPSJ0 o1LcGa54K27gAAghDXCl SRWsDIWyRZLmbDxfgh5i yR8iBq7+PGNvbCB3 zFD1uI5bEYZlZnM7RCay X770PqHyoRHzUqojz6nq y7gxbTm4JqJjVQYzyuPr eBbmSLU7e4TgVe54 H79bVSgfHPSnQPEvGQEg FPMapSeklq2ipB3vSm0+ SR9px9dybc49zT67xKW+ WFYzXUE3xEtmWAng OGXcgX5oXSozSyC6JMMb ViUpdD25bBFbNTngKe6u uHauxBzbDP0iDULxfvmo t195JyRhs7viFHFc vISfQXkdDFG5C51vo0K6 XRMmHTPiIJS5oLW6hH2p bGlnbjogbGVmdDsgdmVy hDadRMhwGQqwT471 IHRvcDsnPlBhdGllbnQg RsCrTLg4E9AqNsq8FGGv eHeyDZ2orUJjWYmkUk3h pNsyhAjjTK7dFCKh jkpuu427ZrFeb4pvNFOh hZJaMWsxCJR3N80hz6F6 XWQnGJGaPSB5uZW4kU9q bGlnbjogbGVmdDsg zlQtyHpyMJexNYbbI420 IHRvcDsnPkJpcnRoIERh gDF1LU77MT07nQWoy2J7 hUY0B0HqRFOujrqe lssrhYQ3EXLvVKPzgI38 Mm4hfJdoUa7fFNMoXJE1 DQEwiEAvC4YupR9uBgLg ZBUuIALgQ8XwcDJy XZqhX442OZdfHqJ3BZIz niHnQ2CpHQMunAghBcO5 q1B0Hj4TO1N9QX69SU56 pYMho8X1eLG0K9Jp GUOwpgslgssrwIS5DGJk TUFdkD13Tt8afXioRn9y EIAhEYR5VNBxyAWaF6Ps dI2kAgTgVRLsQVMb A7BoqFHrQPwyO174HGeh SnN3DMXxtcRkF3WmEVWu oBwpHfJ9u3Y6Ma7NZXb9 ZY21MP54uHQww3N6 rVU6Y6MbIIBuugebhtxd zIW8EFAtYCCjpJ64Xa2n xGbzXz3hNGPrQFR9ADZe fHClN9YnmZ5bWbQf GRPjHQXnP4XcmHGjMHem E770GLnzEoH5QGZifbTf I3LrOZJxkUjbQcO4l3D0 Lb3AOWHgHA25UVB6 qQI6IG62PQ76R3DiCgfq dGFibGU+PHRhYmxlIHdp ZHRoPScxMDAlJyBzdHls CQ3zGg6tEDSiPSIf yKbsgTEgIoXuo7mcSPCx KHcpIQ2siOthY5MykMK4 HUXtb2g2Vs03S54sU9Zq dXA+WIUqpDG6hVG8 eL5gGxQeXoU9IEvoQ393 SyKckCReWswqh3aoy3ry uVx4OzM3QPQletLlgBlp IAF8u3LkQa64I82x IHdpZHRoPSIxNSUiIHZh pXvnim9kiV7oIj3+PGNv dXS6gLL6eP0zZuWwNeH3 CZvxR750VcLccIYu Drkfi8afr8utqNp9MdPq CLEkyfZavOrhSHE7d7Xw Xi30F0EvlCwvk7ExPtl0 fi96hSDew8C1bFQ6 E9VrJNCfwtocvMBfyLol HV0pWUEwfhepRHXrtE3e BUJtY8d9FmSiYhX9EHes Z5EcdmP0MFLeoOPq FNplLKQ6Q85sq2B7UHKk DVGjMJU3rYN9nX4xiDxg bjogbGVmdDsgdmVydGlj NStsBSvwX404BZQv mEzcLPZjjW0sQEOzmKPg wPsaML7xUFQnpzvmYcIE O7THO01ZAQYRA8HXIjUp NByKGV10H9VjVrp1 WFNcgPmhVV1bhTOmPIue Yh9lnVmrpRekBC8cRMRu nrtaSOCdvQ2pXVDqbJEo iJllXU6oLVEyqgma u600KzUtPBE1QLHhmHZv M0JlxV2zLcFeBHYaSMKo M7MawHQlKBjmL061VWvm UuS7ZAYufbOcM9Wk ASAugMiyEjV4j3L7Qo9u TV6oEs0mNZB2JG97PK55 iVYga7P5mDJ0W6JzIKUc lhmfsebttTZ5PCXo LVUowQ86xCEkIMpvQb1j z6F3l745FXGeHGGgrV08 Oh8soJkwHGMqjDCYzB5p wephx7mzdzlaIiFw LLPuEPi4DMq3ZRXluCkb FnXeWFI7WdN2MYJ7aIJp gS9wwKqtnwlljZ4lSue+ HHWpZEQhngN0T5Cb Uby7JKLndBjtTO9zxMLe URbiEk6zlFitgSqaNH3y PLKnvadlQSJvxG1lDXRj xHHijEbpYI9zTGAm pjneo387EkCfRPK2CSHk fUGpY8SjeW8gYhRoQMZl PFNdN2KcwQKhLTtcR026 SIeaQoI3RRGuajNa C2EbJNSlnVfyFmW6p5I3 Vy0ANBsLYI64YR96nCRu b8J8wFE1I9LjZMCslltx fackeXA5OVTzOJGv vZ42rLQeXSqcGi7zx7Z3 k441GXAzJCThdC31Ik5h oTcpEVUmnJAXtZ2ifhjh y6wgjzyuKtUyTJBx NSi5PQk5COSsrWdwLdLl TVQ4QdP3PBL9eKWvyL3h iQnzogxmtH6sLyg+RW1l jlskncI0EA47KN33 N4SoKixbjUYlwLX+PHRh YmxlIHdpZHRoPScxMDAl OjInrJvmKK4eZy7vIRWi LWNvbGxhcHNlOiBj c8ayJLSeKNhwGZ6ouPqa C7WsvRA4RENib0b8We58 X29oC3IuzKC+PGNvbCB3 sMJ6yC6xBxJpLcC9 MHdeC772HbKmiYYwYmeb m6llu5txsFg2JgWhLCJf zzDbkHxeJTD9c7ByMo87 D60eHDazJUNaAWYb NOVhDNGmfPjxnj9paD6z Ii8+LRJutAG3wZZ3lN2d MxHvXcT4DMkhC093HbAo nJNkMdjsU58rU5Jf dXA+WBKfXir3OOUbeApo MR7iwDBaMHgeQc4ySFZ4 JeQzAgRsTHhmF0DfQPYj psycxkoddFE6OYZz GQFpxT10Vh3oqEciSm1p ZEQdVYM5DAQktIBmB0Ay bT6lZyAkXJUzNLNgJ2Lq wTHvNRcnO685GZsd TtY0KJJhnlBfF3SlKDAb iPeiInE3p4S1Oy6ItVja jJBrDL9jGbOiNTt2W0Lc Jvh5OLNtkUeiBC2h dAJgSPaqFn3gqKabnAvx UZ6sKXWqafzkt137AyLi u1ueFPNtkDSfYKgbXEM3 Z86xx3N5KWRsUVCa ASF3dTO2bL0jmJnljrav bGVmdDsgdmVydGljYWwt NMvaP421ZMDjdMhkMcMN Icd0K8CqRrm2QCZt sDulTD7wyBVyWGdwJt1n mKnkyPftKG0mPCIxtdqz t921BiRad6wmOOFsbEDx GEarLET6F73hq9K2 RGCmZETcOSE6tWU1sK2q bGlnbjogbGVmdDsgdmVy mNstKSgrPItwP507RDDi fGbbRj0FQir2W3Py Ugk6ITKhvNaqGP9gbICb ANqxTo8aeNdjwYrcEG4a GIIepgxst357QlUve8rh IDEwcHQgVGltZXM7 B70oe4J2XRLsECEpAOB7 eGE8iL2vgKpyepbbrPXb dDsgdmVydGljYWwtYWxp X278ERXquPleXsYz eWVyOjwvdGQ+LZ12ng70 E2GuMwavUll4FEFxCAH9 hSS9fU1gAFBbGXphb2T7 gTD9N5ArxmRnvo3o b2x (more content not included)... Normal [facility] ED Clinical Summaryon 2021 ED Clinical Summary [facility] - Emergency Department [address] [place], [place] [address] ED Clinical Summary PERSON INFORMATION Name: ROSA EASTMAN Age: 56 Years Sex: MALE : 1965 MRN: Acct#: Visit Reason: Hand pain-swelling; RT HAND SWELLING/NUMBNESS AND TINGLING Arrival: 02/05/2022 14:13:58 Discharge: 02/05/2022 15:08:00 LOS: 000 00:55 Check In: 02/05/2022 14:13:58 Checkout:02/05/2022 15:08:00 Address: [address] [address] PCP: Britt Goodman DO PROVIDER INFORMATION Provider [...] Follow-Up: With: Address: When: Andrew Mckenzie DO [address] [place] [id number] Within 3 to 5 days Comments: Diagnosis [...] for reevaluation. Prescription is electronically sent to [facility]. Return to the emergency department for worsening symptoms or concerns, acute shortness of breath, chest pain, abdominal pain, nausea or vomiting, or any questions. DIAGNOSIS: 1:Cubital tunnel syndrome on right; 2:Paresthesia of hand Patient Understands: Yes - Patient/family/careg iver verbalizes understanding of instructions given Comment: Normal [facility] ED Note-Nursingon 02-05-2022 ED Note-Nursing Pt presents to the ED with right hand numbness and tingling that started Friday. Pt also states swelling, none seen at this time. Pt states a hx of surgery to his right Arm for a pinched nerve 3 years ago. Normal [facility] ED Patient Summaryon 022 ED Patient Summary [facility] - Emergency Department [address] [place] [address] PATIENT DISCHARGE INSTRUCTIONS Patient Information Name: ROSA EASTMAN Age: 56 Years Date of : 1965 [facility]: [id number] Reason For Visit: Hand pain-swelling; RT HAND SWELLING/NUMBNESS AND TINGLING Arrival Time: 02/05/2022 14:13:58 Primary Care Physician: Britt Goodman DO Attending Physician: Lennie Wilcox MD Comment: Visit Diagnosis: Diagnoses This Visit Cubital tunnel syndrome on right (G56.21) Hand pain-swelling ([id number]) Paresthesia of hand (R20.2) Prescription Information: If you have been given a prescription for narcotics, seek immediate medical attention if you have any difficulty breathing or any sudden status changes such as confusion and sleepiness. If you or anyone you know is experiencing suicidal thoughts, mental health, alcohol and/or drug addiction problems; contact the [facility] 02/06 Crisis Hotline -text 4HKHC to [phone]. If you received any narcotics, sedation, or [...] documents With: Address: When: Andrew Mckenzie DO [address] [place] [address] Within 3 to 5 days Comments: Diagnosis [...] for reevaluation. Prescription is electronically sent to [facility]. Return to the emergency department for worsening symptoms or concerns, acute shortness of breath, chest pain, abdominal pain, nausea or vomiting, or any questions. Medication Information: The exam and treatment you received today in the [facility] Emergency Department were for an urgent problem and are not intended as complete care. It is important for you to follow up with a doctor, nurse practitioner, or physician?s medical library assistant for ongoing care. If your symptoms [...] so we can reach you if necessary. [facility] Emergency Department has provided you with a complete list of medications post discharge. Please inform your buff wheel fabricator/provider of your visit and for further instruction on these medications. Any specific questions regarding your chronic medications and dosages should be discussed with your primary care physician(s) and/or pharmacist. New Medications [facility], [address], [place] [id number], [phone] predniSONE (predniSONE 20 mg oral tablet) 2 tab(s) Oral every day for 5 Days. Refills: 0. Additional medications on your home medication list not specifically addressed. Please contact the ordering physician if you have questions about these medications. acetaminophen-hydroc odone (hydrocodone-acetami nophen 5 mg-325 mg ([place] 5)) 1 tab(s) Oral Every 6 hours as needed as needed for pain. latanoprost ophthalmic (latanoprost 0.005% ophthalmic solution) 1 Drops Ophthalmic once a day (at bedtime). both eyes. Visit Information Allergies: Substance Reaction Symptoms Type Comments Bee Stings Drug penicillins Drug Vi (more content not included)... [facility] Provider Orderson 10-18-2021 Provider Orders [id number] [id number] [facility] Coding Summaryon 10-15-2021 Coding Summary HTMLBase 64 MckjsrqrEKi5qNo+PGhl YWQ+RF3LRNRmD84agRTn pP3WH1dSUD2IWMOBUQGN MB0WZK7qsFI9PDspK0Of biAv RpdwcANqRQ83KUy0VYL0 hUarLGgqdY2ptKQwN4i0 QvDjUT59kN68LFaqJGAh MhN5XfHjaixuuPIs R2xnBlQotPCnHwg+PHRh YmxlIHdpZHRoPScxMDAl NfHbvJfpTP0qFd1dFCFm LWNvbGxhcHNlOiBj y3fbHZRvWZdtAI7xeCux E9UgqKL9EFYsj1a0Xt92 dHI+SCZrYPQ3qPpiJHly s495SlPmf9jrWDO7 mKSgTRxoFYR9O51hq5W8 WTMsWOMpJWZ2tOE4mB2f mDagniqwT1KitANlDwF8 CQJ1vVIjoT5pgOgc oadpoI2jUea+D21GLL9O NLPLOI5KIsk2G9WpJfyd dHI+KP88HPQfYM00bJMx vXKnk9dtzSu3RwNf VEBvNUW8nSojLTqlj9Qw XMEpC76ovQAat8P5CGGl jDylhPMrWvKudUF5xM1v HJrvladpv4vngzkj Dpvgv2ykgi92uT74L56z NGppSJEsZNS4QDVnRYNv lKwxrb8qjG1yLx1+IDxj l2mxs7uqqUa8WxIn AONovzWxkGjpMVX4f1Wr Ja84F8RtyFocb3JmGkw9 mo58wEKba9F1hJC3QYck WBCyrE1mHXqbOjO8 NFZfBsPyuB78tMYnYRjq Wz9alTsawEdhKN4fBJOz ngyePFPlsM1kUUFdaZJi sVtbAZ0hWCNewkxg j900PqTcWWO0PRHswNLl J8IyeL7tIdJjTGCfXPMc I0NmbUUtCTtyA998FSud EaF6UZPfhbYdC4Nt KCHdkBnqPeS1p9S9Bi4D g9AvenexFFB3HGfjOKZp YwK6LiTcOtE3P4MqHrw0 DLLwfDyjNI1xE5Yv ZCEyadsnlfoioQU8ORSk MDOhlV59vTHnOKrgIs8k r1T0z803SVVpNJUwrN19 Fg7qdXdxKWQtmDKI zS1vevdgv5fpyercLoLd HNJhSMx1XKc2STDhjWbx EmGnCEA4IvZ6KUG0sSLl fL7gtGyfeiodcT7q Oyc+T03ywU0aVCK7UFP5 dxcbPJUjhgUvNI75OB18 A8EwAeesfKOovFF+PGRp fdCpcKoqSP1wJuJq e2dhq7KxXBwzL8XvVIJj PUzoWba8GSEqUFR0bZP6 cQ9eEDJoSXdxw1Y1rQL3 A2XhjxMmai7dq4gv VSCrMQtpL71dcVWxm4J7 UNLlaUR0RJGtnYsjOeZd rV81Juq+NWPrhYjwn7Oz Jmrxb8mxb8fcdFz4 IjMwJSIgdmFsaWduPSJ0 t6RlYo51X55zDXslWSFm MKTiZUGxKJCwySrmny5t kM5yRh0+PGNvbCB3 zHQ3bU7gDIFrXlU8KLit S175FjLpdXYyXmrnj5ii e8hgxDk3QlZsWRQykgYl sKxlSVR3r5XiGc68 Z92uTYnaOHOrBCIbJBVh FTYgqAjfgh2cgP2iNt2+ DH4pg7muaf82xZ68xSR+ RGPoJDN0pExgRZkz YRMrhU7gYEqjTsL7MLZd BfDyoR03uGTiZAmrCj2m sFeofIeqEM4gVLXtitlu w227IrSsl5glSHOw iLRcMNgjGYR9B60fn6H3 ZUYmLYMkNBI2nSX9dF2o bGlnbjogbGVmdDsgdmVy rLjwDQlxKPykT470 IHRvcDsnPlBhdGllbnQg BbVsKGs0D0TbVfe2HDMs oUybTQ2bpLHuLJzdDm4g xOiinZgkNQ5zVPVu rsvxb964JtPfa1faKEYi yZFgXTniSYX2B10hr2V1 NAWkWMAkGNH7bAC0iT7c bGlnbjogbGVmdDsg wlThqLxeYHvoUPpnY088 IHRvcDsnPkJpcnRoIERh sZW4WP19LC32gDXfw9P4 eGL7J9GzYMPkawyf llrxoTK0QSWmKCIolT31 Kc3dwScjAp7gIZCgTPK3 VHCwoSPwE2SltT5eXhOt SJBmGYNoL2CnpACu RPjeV950HGvfBdG5ACWv nfSwL6OkGIDuyYfpErJ6 k0Z5Kg8UE7O9GY00GP08 oMWbd9Q5eYH2S8Zo OKFxerykbtfevKD7LNZl PVPxeN81Ns5ooAskIq5y NYTjMZG9IANpfSJsN9Nx nD7xHjGoKFDpCICj R9OzqJQrILsvK881RCoj HeQ3AEHilxSsA7ZiHDGz zFqeSyJ3o4G0Zi0WPSj3 KE20CB25kGMeu8E9 jKM4E1IvONElfddnubqc wIB3OKZbJFAznQ20Ii7x uPzhKh4iJBNtWJR0KCGx sTFqV2LrwI0kGqKe ZVKtMGNmG6WnxQUjAKlg X628CEklCfO2WHWwsgSr M2LcEJYokPbfBbU6a2Q7 Pg0RMWGuDQ32OZI6 eXF5GB30IZ95S8HyTyig dGFibGU+PHRhYmxlIHdp ZHRoPScxMDAlJyBzdHls CW5mYh8xURXvFSEj fTqihJRaAaVjr1foGRCn VYmwDK8zaPswK9XujWG7 OFCfj9n9Cp20D55aC8Dm dXA+MCEkvDA8hUN4 lT2rXbWvAlW0VDobD248 EoGoqZYkUwbjd8tri4je tSq1JbF0EMSsrdWkgWnl HSV2w2JiJs40F62k IHdpZHRoPSIxNSUiIHZh cEdvix8lrZ9dXi7+PGNv hRK9bTC2nZ8lToFfXuN5 IDibC917EtChoJPv Eyqiz2pem3bakIc4AjFo ZIJuvgHbzKgfFGG9q7Lu Ho70T0HiaBotf5ObLbi3 el28iMNlp8Z8aZN1 U7VoDFNyymhieSDsjNzv DK5cLAAzhuzdPFKwdR1r JGZcA1t8WqWuXgZ0ZJql L5PtanJ1VYUqbCWp AQgxQIL1H06hs1O6INJc HMTfGUD6lDD3xW5hlJpg bjogbGVmdDsgdmVydGlj GLvrYYihA688HYLr qOkpXZMnuP3bPKEmmTTx tLafOZ1xVOTdzaugLnEY Q1PTR14IZVKOO4QDFwPg OFqPUV22B8ZrUoz3 TIGhtDnvBX4apBFiYWqz El5xsEfsmQczMT7yERYs rvcrRDOnoQ9kPBFtcZQi uRvkUP1uHZVdzdww o879JbXpPFT6JPGkzEDr A7VlrN8jUaCaSMHzHTQy M4WerLTnYYdkO811UEtb CjU3VRPuauMxN4Rv GBEumAiwVwW4w1X0Ce5d XU2bMq6uAHP1RX14JD63 hUNvg9T4hAA8E1RiKFHq zbatopiseFW9HYJl FPKgkC87kMWiECnuOv1y a0Q0g456YZYyXFTvkU46 Wh4euQmgQYKhsMWOiN9j cdnbm9rzxfchNnVw TELrVYj1IKn8EOXbaXjm XdYcBRE7AwY9JJX4sNTb cC9sjQhxahyhnW2sPoz+ JSCmTCBpgdA6I1Tz Pie1MGDjlDkbMV1ghGWq BYhjIm5lcGzdaRhrVZ4y MUCsiiugWJUogR3sXQDd hKYeuCdtDF5dIDBp vijbe480ZqNkKZS3FUBk zHJjR5UdyR5rOsOrEKXl DFKlD5TwhIJyLZetH325 ZMzcNeV4LLWyrrGl D3HsDJXrbRcfXuI0h4R5 Mh2KTRsKYL87GL35sKQf r6W8hLQ9F0OsRCPmshxp baatiOA0XNIyQCZx wD10hUZvCVypJz8kk6D6 b144PBMnMUBqbH89Lr5x wZgcPOPdnXMGgO6hloao r2nwtyujGtZbUYFd IGb0OYa1TIIblDuvJtSz OZJ0QaU4UXX0rQZzdX9a gEzaazypjE3qOby+T1A8 P3FxBdxdyTO+PC90 VRSrMQ03qVCueOWnl0ec lLz4DzWdREOeFXS1lCdg UYdnr1GgJQRcX39qhUPg f8C9BNEsePsteTDb AxEfyEP0kK8qWSjxuwsk n0dbndirXvutp4ynlv69 hK73E65xFFuoGVCkCSUf HLHwOBRnhVwjnn0a xG1pXm2+LFFqgNP3uBM6 jW4qNmToLeV0MLvoG772 ClWdiBMvPsuxg4tdc4hh bMt6NoZvQBUhvkYb zKfwXES7s8MsJv55V51s IHdpZHRoPSIyMCUiIHZh fSyivl9mwX5fQf7+PC9j i5xyrn70aT27iXX+ TQEzBWE2kXrkSIodKLQu vD0pTNlrXsO6BBXgBrEm aI81yMMcDWhaQb6moTdl qFhhYM6mZSVzdnxa o319BdGkm4wvRPRrhGIh LIguAOY3T60ov4Q9SNBh TLVcQLL9jIF3tN4zvGvs bjogbGVmdDsgdmVy xHswBHvoESaxS612LKAv eRqnPtNvsADvM6fjblPW OQ8zLhnxiGJ+PHRkIHN0 tIjiFQoeFXPljR3b FSXrO3z7LzXnHgO0AZio X7AubeK6USOwbNSnEEMc bNWRyA0oojlug9yqfukb FpDjQYQaRMf8JZn0 JXAmbFexNdLhDFI6LdL1 UOR3cGHtiW4zpEnqxare vG9lHvc+RklOOjwvdGQ+ BEIaBXI7nVtvFKbq JXTfzO2tOMKhB6z6FvRv IxB7SIxnM7PctlO1LZNl rVGhOMXuyLRMgG9umoph q1qwiehwUfRdNQGo JXn2VPs8MIVlzXlrCrBi IUA8ZlU0JON3cXTjaJ6f dNnlnynzcV7oKtw+TVJO OjwvdGQ+PHRkIHN0 hBtjKZbaHPSzgW6wSKNe W8n4CkOzTaL5UQpxI8Mb csC1GENpeSAlPKBlbWEE kS0hxouqa4tysyhc RhToPVLuXXo6ZSq7CZXu rXreIcEzCUP5EnF8YRA4 yWNajE7awHqntugwsH1s Oyc+MHX6ZDU8II65 EX63T5UkVyqcuTHvgNY+ PHRhYmxlIHdpZHRoPScx IATzSwZykDitFZ4cAh1t ZGVyLWNvbGxhcHNl OiB (more content not included)... [facility] Rad - MRI Reporton Rad - MRI Report [id number] #[email or web address] [facility] MRA Neck w/o Contraston MRA [...] Torre MD 10/12/21 7:46 am Technologist: JER[facility] Coding Summaryon 08-30-2021 Coding Summary HTMLBase 64 HhocvxzsQAd7vWw+PGhl YWQ+OZ8SJVRrF10goMRv cF1SI2mPYG3YCPLPQYND UE5TSS6rnZI7PQyhN5Vb biAv OrgefUIiTU80ADk0ZME7 pArvFArsuF8qcQAyN5a0 LuOvQT47lX02GDzoNQIr XzV8SsPcjxeapZHm X4sgJrStmUKoMwe+PHRh YmxlIHdpZHRoPScxMDAl YlNweCucMQ5cWz4ySHWt LWNvbGxhcHNlOiBj f5czCMZoJQphNG0skHtk E2OtrEJ9ISJus1a1Qf78 dHI+OBEoXSJ6lXwtIEdm x676GhFau5whWYJ5 bYDyTRnfMLX5V11rb1C4 ZHObELZmQIB4bFF9mF8q tTubjjwvX5JxeMOdHsS4 MXZ8aTKedH1gsGbx ilbxjM5zEvs+Y01WYG5F JPQSOG6HUgg9O5DtHbov dHI+UW24YXMpXK92lOIv fBTow2qyxDi1RsPn AVPfLAD7tUlzHGaoe6Wx SBBhY92hlGFlu2K5MNVs nDfzsEFkQzTnmPE1hT7j AEqjjkrzf3ziixql Dbsud2taub56wH68Z06e COvuIFUjUMR2ULLsVFUx xEnvrr5ghS8uNo1+IDxj k1mcc5sujYo5PvXt BAQfceGnkWalMHM7f5Xi Uh46V9YdsNnjt6BcCxm8 zg48cMFtw7B3dWD8MAxc YOZfuF3rOLryGzS7 IOBrEeVliF19kVUaBHdb Ra8mqMmcfLvcQV2bLBVs whwjBASarF1oJJMoiAWl yFfhLQ9jFTZtarch q079NmLmMTU4ONGiyIXl H4JajD9wIoZzVFFfGDUt E1OofUWjSJomY436MBxl YaX1WMVyefAfO6Gh WHGznNtuFlL2t4G2Zh9M m8QgbfhtECJ6OCmvUPKz MvHhDiUdPwB2C2XbZsw0 AHSmkOtbSK9vY3Sd QPBxwbncpftliZB8WJHr BFHckA75mGRnBJueTz5n r1M4i712RLKxIOOgfM74 Cl6apSkcSXGipMFI pR5xhrfdr7ducbgzRvNc WYOqNMy7GCu7FFOdhNik XjDnXCH9KwK0OXE5iBZe qG5obBatsrcbfI3p Oyc+X27djO5pUGL1ZCF6 zasyFAQjfwHiHL27PB40 L3GvZqetoMZxmJJ+PGRp ibLdvCtsQL0eCdGm f0ecw1YjABhjZ7CkOHXm EOlwCkp4UICuZLY1cWL6 mK7oRJKqOIsts6T0mCE5 C8MzwuWkzt3cb7dg XIJoNGpzC77svRFfy5I8 ZYKcdYU5FPLpwQfrRuSx bP14Pjq+YUJumClkv7An Vxidb6sxu6hvnKt7 IjMwJSIgdmFsaWduPSJ0 a4ZiOz70I12dSEcsZYXp WIVqHAPwBKGhmPnjqr8b eG1nEz7+PGNvbCB3 tAQ7mF7eQWMxKcJ8FPyh O949NyPciLCaEodls9aa f7kohZk5WgLfKMUwsvXo bRgtJFP0r6PvYt64 D23gFLrrXIGrHKHcAXZs SWHchLcezv1clX3pYs0+ DM1lw6slzl75aA34hSF+ NKMpTOE7oDhuDCot HTVjeX4hGQnxFsU0HAPy RoLqcQ66vBBfQSpzMz2d mAudtMznSO7kFBEahhgx q300PmUoi6sfWYOk oFLzFTjzZPO0M56ny4L0 JRFwSMFnPVW4zXV7oN5c bGlnbjogbGVmdDsgdmVy aFgyYCfdPMosY935 IHRvcDsnPlBhdGllbnQg LxBuCVo7J7DeWbm6IJMw yHxnXG6cbICaGFhnJx0g oLunvEruJT3lTCBi wosqu033ZoYwk0paNIIa qZOyZVjqDIL1Z41di1S7 RETyQDKnWAZ4aRO4kZ3i bGlnbjogbGVmdDsg tiYueImfNItdAQqxD975 IHRvcDsnPkJpcnRoIERh zRG5ZL94BW85aMJem9S1 xWL6T6OtPBFcnyuz ymyfrIT4UABfVRNkaG05 Fi0yiPqbTo9aWVSuTMK8 WTXsjMHgR3JgyK9kPmNx WTMrASQbS8NpgUQp GGwiG254RMdmDaE3OAUi bgZhP2SrKCTviXubUrE8 a3K1Bp6YN6Y1KR90WV74 bBIks2X2yAG0A8Zy YDAbqsgahqqbkNF4CCBm BAHbwM29Ek9goNohMt3d ZUKsIFL4QSHsbJFdD6Oa gT7mDkUiIKSfHEDk P9HnyLPyACjoC597KKzb WmV3VFQdgcGgO8FsCKFd uAsdLiQ0v8L7Qw2FFRf5 CH85WY17rZUhi1F4 wGA5Q4JoTTIhnezbxyyd vKR0SYOkVZSxxP11Nt4p sXexSz6gIPCcAVQ6MHUr xAZbW3ItpG3bKlVi KGOiRWHrI2IsuXOpRMsi W617RFwkRxR7BGYvaeRn J9LeNCUnuOosGkD6w0H0 Bj4OEDGxCY07GBQ2 fES5BZ82ZJ90C5UuBwpq dGFibGU+PHRhYmxlIHdp ZHRoPScxMDAlJyBzdHls GZ4xVk2aKAMaJNLs bDxhvEIfDaXok4rtXGFo JSxyVQ9lyKcsR7GvsKX1 JOZlh0e6Rx68H63vW9Za dXA+WMAmbJZ3qOX6 dN7mDbLxRhZ4COozA420 BdKhaJQtEagap9wuh2qw hFh8YxP6KRWxxsDddUnu EPY3b4OvBk60S09x IHdpZHRoPSIxNSUiIHZh dDisgp7duR8mZh7+PGNv vHF2gLY5sL8lFeRsPlG1 MEsmC492NxUegJEr Tqhkl8tzl0cedLn6HfJs HCUjisLcoCrwFBY3h0On Ha29L5IxaVaif2WkBdg3 nt06sTYja2Z2cNL9 F3FbHUEjzxbwmNQzrLjp LT3qXVLurymrILXnsA1w HSMkX4f6KmGqPqM6ZSrp O3NbslV2MWJbhLVy GGpfQYC5X06fo5H2TQNq ONZpQLO0sNC4pE2gpJjg bjogbGVmdDsgdmVydGlj XPheZUjuA643IUDs zAsgQSRjkC6vZRXcqFAi cJmgRS8fLGVibdnjZyGC Z2MKK47YQEYFF7LDXsUf XVbYRE38Q5CoEnb8 CVEihMnuAV6ciXXjEDge Jd0ljFvxzNotFO0oRBWv okahDHJaqG1kVJFqnQAv sTsqZO6xLFGyojzk t810TmVmWNH9SJCfzGEj J5FnrT2yMyYbCSCdXSFv Q6JsfHQmFIbbV592NHdp CjL1XPUbmmUdJ6Xi NGGznYpmMeR6n0O2Gj3x KZ5oFs3fFDM9YB44AZ59 nBIxs6H7sGE1J2AtAJFx bnrtahwbcFK4NSCc LYVlmL84cEPePXwkUd7c w3C2f718LNCqYXTxbC35 Bw9zgIvsJDUhjTKKkY1o zwgkx5nppaueTnPf ZEScFNn1GEt6XBQpvSlq RwOnPYR1ZwF9ZJX1xUUr kN6ugPdahddtyM2vXrl+ KNOhKNIwqsQ6X6Gb Qar6UJBouQwsIW1hyEJx SGriBh7plAtxzKynVB2c SRYlsohqSVCsnX6bNYUa vEWwzRpqGY2iXBUm ijmuv761WaSnMSX7IHAv zRTnN9BcdB0rQrSmWQQw JUAkX3NagCTqQUudC365 BAmnFeX7HQWcloKi W4RpZFNioSbfOsP6i6J0 Ou7JFNnERV93JQ36bHHk j2M7jIP2E0XzDLDzdrtj frowqXL6YJPwHRXb qZ23jASgZGjiXb8er8G8 w187FWHoFMTjdT68Tf0a xDrhPMXdaCNLkD0sjkbb f3lpoytyVgXvAXFb URt6TYz9XSEjeRmaHlRp UZC4MtY6WLV1mERoyO0h vBzjsbamiA9wHww+T1A8 K0GwEecunGF+PC90 SBGgDP51xFWmlLUxi4xe mGn0CdHtSPZvHZC4dIbo QTpdb3QdYCMmD87ywUFl m8B5OVFmlOymaPCf TnJqhUU1mN0uQFsznjpm p0avhptxWbqzd4nhyq39 tL53Q47cDEyzIDPdVTSx ZDRjDEIneGumcg9e bH4hXv5+GDQlgKR5dZI0 qY4cPhIjLoL0LUriH765 TpQlySVeKlveb8cds4rq bGe2PjTtWKUahjIe dMasGVP1d6FtZx63U52q IHdpZHRoPSIyMCUiIHZh rNnhbw5yzL4wNd2+PC9j v7lfhe27zL73iHA+ SABkDWB3gJgnAYnzCBMc aD0hZEynWtJ0IBQvMdAk iR55lWQsVDnfKd0wtUxa sPjyRR2dQFIvolux f269OaCaf1cuDQBvrWFp KUdkUEF0R47xt4W5JHLo XJPyQTB5hOB2uK5odElc bjogbGVmdDsgdmVy pDofWRseDCvvW298ESGx qYwhHzVjwPWgJ2xasqDC QY9fKiyvgZP+PHRkIHN0 vYtrJBivGOUtyU9i ENDfJ1s7XrSrYnO4WBbo V5XphyM6IVKcfCGqRGTa sTNKnA5acxfsz0smituk PaIxGTQvXGn2WLp8 SYUpfVusOdTbKFO4TyL4 GHS7fPAxcR9xvShdkvji gK5uLhw+RklOOjwvdGQ+ FCAaLAS2kSuqDTux OIYjwO9nMIFuO5a0SdGj MkB0BOiqL5PvjuJ7HCPn yZYtOPXygXDQzI1vjdho n7eeprnqTrLyGGAg IWk8KEx3WGNrpIpqHaFc RIO0AeN2BJP2sCBmqU5x lZlnpqxkzJ4nRiv+TVJO OjwvdGQ+PHRkIHN0 nKmvMPnaWPOurC3gNQWd H1c0StElLcL7IIweO8Fe cuN0MQNapMKpEGVjgWRC nO9pajcuj5kvleqj NoQcUUWcHKe9BNi2OFBh kZsnYbFbSOR1PjV5HMD7 qFRtmK2zqUplttpicV0k Oyc+UMQ7HAA5UB32 WE22S0ErToymzPVuuZS+ PHRhYmxlIHdpZHRoPScx LJEmQfViySriGB5uKg1b ZGVyLWNvbGxhcHNl OiB (more content not included)... [facility] Coding Summaryon 08-29-2021 Coding Summary HTMLBase 64 BowskycyFQb7jFa+PGhl YWQ+OF3DAMGuO79iiINs yR9OW6yNTK3QOMAUOVAT KQ4OXD2glUM9GBgnD2Qb biAv SsiakXZxQB74SGf1PMD0 lSvjVAtpvT7ssYRaT3s0 ZdPvBC63rT54THbmZVEm BdG5BeEdnjaoyIJj F3bgYqJwhYLyEag+PHRh YmxlIHdpZHRoPScxMDAl XmHaiEmpCA7cTt0tHBGr LWNvbGxhcHNlOiBj d4ckQHTuYMeiPT5bqPyu Z3EdqND5FMWrs8h6Ve28 dHI+ADOmUEH3iGnfIFrf f989NlEyw7qvGBY5 yLDbWFgcDYQ2Z66sa3A8 WDVqKNSrKHX7nCL4yS0b eYpgusxbV1YijOJmHyE9 PEQ9tMOpvS3ecOui gqhvzS0cEck+I38DSX9P GJSDYY1GNkw2Y5FcZlud dHI+TU25FSLtYU98yEOa aYSpr4jmrHq8PfZc BBSsKWM8ePbaCMtkp1Qi CREvM54vsBLeb1N5TJJm zJlfjHZhUuPleDT6aM7x YWeulcned6avbdpy Pogim2jaic00hV08V78e BHodSQRvOWR7IAZrOBJb jJtygr7qnB9sPc3+IDxj b6lnm5kdyGj2IrQl HSDouiFzlGyeDDC2r7Lv Gw09N1WznZqti0DyAwk2 cq86pVDqm4M2vID2WOkg VMEpvT4aOBvyPyH3 ICAsAaGhhK00nUXnHIlm Us7smVfwaKukHC7eFWXj kujrUMUzsC8nTVHmkVGo gXhmWN9qUKQtkiac j535PnKhXTS4OUYltTOd W6JcxN7lEuCqAIDgRCZx G1FwpKTsUNysI229VMkt KdF9JONfszNpO1Zq SDWbqFprAfP4o5H4Rn7S h1SkbhojNBP8AHjtHNPn OvBcTvEfEtM0Y6GoWnz5 UIAsvYcbRB8pT2Cu WLHmopsdsbwooSR4FCZw DFNdrJ48cRNeCCzcYo4m v1W5d983XSPpYKZsvD15 Av6ipQggNFVhbPNM sM9eohegf2bwboacFcUu XVYzRBr9CGe6XTRrqTsg IjYfVGF9SpK4FWO7lJBh rL6khAmsnbyzlL0q Oyc+L52tbV8wPUZ1JSZ2 bezeJMXsgmGjLK48XE12 Y9KtReyreGKcxAF+PGRp nwCtqYodAZ2xKtXa x9fpw8UyAEhfQ1SjOLRs KWcmRrt1EYMkFBD5qQC9 dD6xSUIuZJxew2W7uDU3 Z7PftkScrt9wu8js INAgYXckS21fwXGmc0E4 AZJqeXR6ELVowXixKsJh eR90Ppx+AXXxwUvxh4Nu Laaaw9pqn3vzcCk3 IjMwJSIgdmFsaWduPSJ0 p6HmPb37D40xQLgoCEWa OHKfKPEvSGIepTyupi6n aO4mMp0+PGNvbCB3 iFL4pB3oKDJbMgX2YXdp T378NsWcuYXfKxrgn1zt z5zqgAw8YwIsOXXgzxPy nAqtHKK3n4YsNt20 U67dEFgoTYLiZOAsXJAi DUWviCjcau4yyT4tZh4+ HS5ku9tjkl07nY75rBN+ KMOpCKR8iQjoDKpe OHOilC8uIIymGrX2YNFf ZbPapM28rVDqXZjoYd6g xKnlkOljRQ1pHGSsztkc w455GkWkp0xmZSId zNUfJLrfJDF9L35ef9O0 NSUpEUEwLGJ1sHG9mM0s bGlnbjogbGVmdDsgdmVy hJcrUSymEEqhD313 IHRvcDsnPlBhdGllbnQg CsHaMTl5K0KmVjk0HCUt zKwaEU2juFAsLWlrOu1c vMkfyRkaUJ6wVOTa eexwl973QqVdl7wrWAIt gLKkGInvWPX4Z56an3X8 IJJnSHTnLLB9rAR5tI7f bGlnbjogbGVmdDsg hzGwaBnzOXzzJYnmZ071 IHRvcDsnPkJpcnRoIERh iPU7HD46ZZ66rOMar9J4 hOZ2T1BhQTRcgfiz pbsclFJ2MZPtNCEyqD19 Qt7kgFpdLg0eJLQsYSA9 IGQniIMkM4RnfM8wUkQf LZWcEKKaL0BkoCGz BGfdI996VStbKtJ4VHAw eaVlQ3UnHFRhsXpcFsR3 n0L1Nl1PJ5J3OM11AI32 pXOxd6Y9pUW4S0Un PUHhzxvewopfqIO1GTPu XKFvkB49Vy1gyUgoKz0s WKIqVUP3SRXlqPOaG7Hr tN6xYcNoWAQrEHNb M3HxuQDzRNblM888CUvg FyP2RLKwbdRgT4UaWCGj nWmqLyN2d4X6Hj7OJCx9 EB98YL71eNJcr0T0 qEN9X0YwDVCvaqxahrfq jZX3IQXyBABhkR30Os2f xPugHl8eNJLkRLI8WIFn dJLtD6XhoF1rOpSy XREqWLPsY8QlgVWlWEey C860YDvvDlT3ZQUvxbPj P9FvYFJgdXfuMgW3m8T4 Po4MRKZaFY94QNI6 sLW0GR26QB60G5NyYygq dGFibGU+PHRhYmxlIHdp ZHRoPScxMDAlJyBzdHls CZ3zSr0eUMShBKHp gZaxmOScZrIkn8xdYPJh GJxyFJ1fqQdsI7HioOM2 XPOsr5w9Uh77X66vZ1Sq dXA+RTHzlKG2eEW3 oF7uVdUcAqF5ZAhfZ489 WfYhnAAfNfvkw5kqi7tb qNm7PjB9RARkokSkzTse WAO2w5JvNx67O76w IHdpZHRoPSIxNSUiIHZh hKqwda2jvE1lZx7+PGNv jZB7eKJ2nN2jFdZkFsT8 ETvtF980NtYbhIMb Wgdua5crl8izpYj7AnWd BYWiayCzlJvuMDL4m3Vr Qo44P7RrqIuhq4NlChb1 bg76yWBzm6D3uMU7 A5PiVVHhqcmqcIFaoYfb YB4wTTFqcyxtCJNqpX4e BTNmN1y5TxRyExU5GKho B1YoloA9JXLzbFAl NKneWXE9A83qe1L8EHVy QLVqVCA5dIH5zK0emNvt bjogbGVmdDsgdmVydGlj XGwgBLzeD765DKSj mQsyYKLhpP5pPZImbVFo iTekUF9vQXJrimomCpGC K4FIQ62HJHDYA9JZVrXu FDuFIE19A6RaAca1 QJZzaOilFP6zkXNpVGdo Xa8mzIvaxUldXN5eHKRd rfxoLEQkoU6rOPJnsWNd nIkeOF7zULJtsyyh h630VmFtLVP2DNBxjNTf I6IezX8gBbAsXMUlHCBt U1OlmNGbLWkbE843VSyj SmW1EZNlppJvF8Ka IJEjhQglJjU7p8Y0Th6v OK7lCt9rCJS2OD25AS65 mCTyu3S9sWL6F2AxQXVi nwkeyixetAJ7TTVh IIFckC55xQHaZXncQc6q v2Z2w597ASJsXWZvpG68 Zi0htVgeBKYfxNNTuW7v iosam0jiqupnMgXj LNCfQQj5LOc2RFPrnNyw AqXjKCY6TjM8UEK2nZUn bT9caMhfhedrgR4cNid+ JCQlUFBweyU9R1Xt Vdz4GSVggYjaMK1ztDUv GFsfRh1dmZuonHpjZM2h JTThlpccIGBsjK4gFTAx tAMxlLwrCL6kJFMh cdkbr988HmRgYNV0YWPx nDFcL9TvjZ3wRqQkHWLf DCHcR4RrcSQkHPheC322 YMqiJoF1OUQrfsBx Y9YrYHSmaTcuUjI1p5Z6 Jh7HAKlNFA76PQ13eKWh o6T4jNU6R7YsRTHbfnyh pykfoNH3PTZtZVFk tY65oJTaFTefRr9df1V4 m827CKZtRGDoeD59Cl0c xZgvOOKyaXYUaQ5jtybp i5dvdkigRnKfWMFm PWg5WOp5QCZtcRxoWkOb DTV2AkN5MEO5zKJihX2n jNbpgigmcD4cPyy+T1A8 G7BbPfnhtSU+PC90 SARxJO17wFDvpWMin9vw eMj0TkClPSYkNIR6pTrk OQuib0PuCCOiH93ffBMb e8P7DRAnhQjvjLSm DlHnxNE0eH3bEJtfsiqf p4lgjihrSgbxi8gibu19 qY25W54pRWpzBADjMDIm SCVdYXNzqShcqq3x hM6uZm7+CXMwtVS7uXH7 xP8cBqZrGzJ4KNnuV722 UhMocCReXtrtn7kid8ms yXp7ZxLjREEhskSn bFmaKYA2z5YjUa41A67n IHdpZHRoPSIyMCUiIHZh rEavwi4phU7xNt5+PC9j m3bwbg74dJ46tBE+ LCXoTGF7lVqbWAsjFQCg gC5zQWmqEjX8HIAkKhYy oF11sLYkESkhRy7saJip vWxnDX2wZJDydybs u354NcBmz1uiETBpnORp JNdfSPD4C48ok1Z7YMJq ZKLqCHQ1hNY4kE4qlVkp bjogbGVmdDsgdmVy lJtuRTxgFXvpG829RJUa aPbuLoIzvSPqA5nxjrLX NR4jCarlqRK+PHRkIHN0 sCzuKSeyFVLqfS3v YLGwQ9i5NcEkRrL5CHgf H3TtusE1GBDkfVOmTCIx eFTNpS5varlvn1rffqih ZvMiJSBlCYv3TJm3 NXUwiVufNpIqKYM4FsM7 GOS5qTPavG2phKwdehuh vT1gLoq+RklOOjwvdGQ+ APXhHZI7wKqgWGcm IKNgkG5wFNZqI3k4KeRy IbL8BVzjY6CtkcD8PKPd zOCbIXDwjSIYgP5dsoml n1nxedksXkQzZSIh ESw0UAt3DREpbLtmJhLn ALL0RrR5AEK7hGIggR4g mYnoxyyawR1jMqn+TVJO OjwvdGQ+PHRkIHN0 bBxnPDdsEDLkgI4hKOGk W0m9AuToMgL8PVqnT9Eg paL0EWPwtFRqQZVooXUP zV4ypwjfd5nchnik DfJeFWVaDRs0AJz5PBZz yEnrZdBaFWK9YvU9ZFK6 sECiwP6uhEudzrqgnN4q Oyc+QJX2CGO3XI02 HQ22Y0JzZrssgAVplGH+ PHRhYmxlIHdpZHRoPScx HPRjNnKsxVrlKS2vNe4s ZGVyLWNvbGxhcHNl OiB (more content not included)... [facility] Provider [facility] 08-29-2021 Provider Orders [id number] #1.00[facility] Rad - MRI Reporton Rad - MRI Report [id number] #1.00[facility] MRA Head w/o Contraston 08-10 MRA Head w/o Contrast MRA HEAD WITHOUT CONTRAST; 08/27/2021 2:19 PM EDT Clinical History:LOSS OF BALANCE Comparison: None available . Sequences: Axially acquired 3-D gradient echo series for the purposes of sjcq-cm-ukdbzz MRA. From this data set multiple volumetric [...] Deshpande MD 08/28/21 7:28 am Technologist: JERRI [facility] MRI Brain w/o Contraston MRI [...] Deshpande MD 08/27/21 2:50 pm Technologist: [facility]ER[facility] MRI Spine Cervical w/o Contr [...] Deshpande MD 08/28/21 7:38 am Technologist: [facility]ER[facility] Physical Therapy Noteon 07-12 Physical Therapy Note [id number] [facility] Provider Orders [id number] [facility] [place] [facility]-29-2021 Provider Orders [id number] #1.00[facility] Coding Summaryon 2021 Coding Summary HTMLBase 64 FswktqjzXIc2kQr+PGhl YWQ+CF1JLJVxN26kfBIz jF5MW3wHFB4SJIOGRTAW KJ4BAX5ztID7EMdzO2Lh biAv SgzmgMXsYD62UKj0JSR3 nZnjGIrmgW2luIQnJ2y1 AuNwOL47xN76ZVhvPCHg BrM8FuSttvbreMEy V2xnArEcrPClFvq+PHRh YmxlIHdpZHRoPScxMDAl ImKseYjjKK3qUn9yMGXa LWNvbGxhcHNlOiBj q8vaRBWhSInwUF4sqUjh O8BifUU6GPDxm4t8Wa83 dHI+RBKwNEB1qLvfNMbh d391YrSvq8vjBGV0 qSAlMKgfKEG7I77ei3D3 FKYzYKKxHOI7pRQ2bR4q uJytxblsX4KlrOZtFmR5 SGM3gKTahV0rcUwp lhmkmP2rIvo+L21IYL3T YWPRJV8QNhv8G5GqXwqu dHI+LB79JCPrBS03jJMa gHYsl2wchAn2CwPp FEVuHJC9pPcsRKsue9Aa DQAdS83uaLVpt9J5JUAo vLtpxPQeSmNknTZ1kN1v VUvohhbwr0hkzhsl Dkmle1afdh24lK26M99u OFkiTHAcWTD6HDNiEQUg uZzaax4zsL6zVc5+IDxj h6uaa8kbvNk8RcJz EDEawxKjlRqyCPK5o2Wi Dj29F7UrmRbst9WtSqd7 fd46iTUqb8H2jLO6LQkq KWVsqV2mZGocPcW8 KJXvMzZmpV88oZLpZOfd Pj1ojShpxFdsEN1eMJTy ypnmDPYptY2pOKArgHJr lQorXS7cUQJhmtbx s142UiVuQPR5SQYoxAYq V8BvhV9mZvZcCQCqLFDm W6WvfNZoESfqP842ATar NlD7DQCzqaWrT0Lw TUFvsWuzBsP4q3U1Ao0M b5MqilwaHXG1ZZogWXJ7 TmU9HuLmPwS8E5DnNof9 PKNdqErdSA6zX9Ge IAErwdmdannibLJ1RNKs FIGqmB95mMMoKBseNs8f t9S9v771DGFvHLFhrG21 Fb6unPdjTLPtvIYI kE6udvmiw3wjuxewQdXh SGRkILx1ZUp9VFNiwCav CxDeZWM0UbH4DXS4yDYv aI0afGgvgkhrqV3a Oyc+M22hrL1cYFQ6LZU8 eigoVYXqtqKoCW53LJ22 I6GkFrsfzNSteBM+PGRp qjNlzOewJN0jAeCy d2fwa6UhKWotA4TgMVKv RBenMdo7KWUnOFZ0sKK3 hI6tAJQwOAgvr7D7bKA6 N3AvceUegd6du1zy KZPdOQlfR88hgBRep9Z0 XWPzwMD0NTUriDdyZbQr wK06Vmr+TWJdiAkhw8Ng Xhnuw4vca4qtaBd9 IjMwJSIgdmFsaWduPSJ0 j4ZgQi93E73tRNvgDOEu PXZxTCLdEMQxmLkzoz5e qF2jUj7+PGNvbCB3 uEF7aP5yRZAaOeB0XQgs I211EgAlzUYmAgljc9ng y3yplDn5WyJaLESzuzPb wCuwPWE7v6MoVn31 J00pALioBHGtNEKpBXSq SUEcvOabvm1jkL8lCv0+ RP6pt6zkgm24iY79pRL+ VIIxBTR6yDddRVxs NPRrmQ3uXDwrPzU6TJQk WoQgmG87vCYvPSjqUd3d fJhswYoiQF5iIEJullvb d363AjVdp5loRMMm sODwADloTUT6N79qn2R9 JYBzQNFjPPZ4oCA7qM7b bGlnbjogbGVmdDsgdmVy uXvdHHuyLVlvX091 IHRvcDsnPlBhdGllbnQg RwQoRAb6I0IoRox6RSWw cAkwPT8qnQGdARttSa8g gNdsrYieRT6nOLDo kalgw851CvBig0uqKBKf sSPyNLquGLV9G99ed2K4 YHXnONUxOBB4pBN8cQ0p bGlnbjogbGVmdDsg elWyyTfpNZyzOFhgI063 IHRvcDsnPkJpcnRoIERh lUZ3WJ53YU16fGXjf2P5 iMN3V9TeABRloqfw iydfhVL3VIGyJSMqrC79 Vb4axEypPi3aROKoZLK0 PXUxlOKdI8YdpH7oHeEk QXPoBFKtS5YpyPEb NJxbV953ELfbOgR9LNMs ezPlP7OkTHTwmHkoBoT3 g9U0Fg4DE5I1IB60GI72 fMEbx7Y7dQP0Q1Cp DWGbiojbuvahcEZ2KJVj GFHxbG57Db1mmGypLu7d KIImQPX3BOAkvMQoH8Ro hR4uUyJrCVZnFRSf K2KodCSqINeuL245CEcm PmI6QGReklMkC1HwKTRe dFagTtQ4d7C8Ng0VYLo6 MG69QH19sUDpo7B7 zEF1K8NsJNUtrdhvjgob oMU0GEAnRFPmuY28Qs6o dXddJc9eRELxNZK3KXBc iUMuS0OcgA8yFeMp HFGaJHNkJ8QtsEAoBJvj J846CEgwVmW2GZHhxyHp J7KaDHIwaLedJrC5z2B0 Jq2KPDJaEJ59SFQ6 hRG3WD99DM64Q7DmKyiq dGFibGU+PHRhYmxlIHdp ZHRoPScxMDAlJyBzdHls DP2zQl4qDIJjJXWd cLgbjNQgYyYwu3hhTJEa LWelJL1ybTwkP4McqWT5 OVHlv0l6Dh73U65rW8Sa dXA+DYXikYV3qKR9 nJ4qTmHxVwQ0QSbxR773 FtYofSUoDgrjv3zeb4rn mBn9QxD3IJLyihXwuQwh AYN2n3MpQp29S62n IHdpZHRoPSIxNSUiIHZh gJmgdx2msR7iSr5+PGNv rYM2hGS7lB7xWwQwMpG1 WPkoN793RdYtqUJy Xhxer7zee2ajqQl2ZqPd NFIglrOlsZjjACC0f8Lr Ab40T6XwpTxcl5JdUxd4 nr21zLXda9G9eTD3 J3JvAXQiaxvxuPMnxPss TM8hJCRwcevwPGQpdU1p KGRyI5c1YeAeRcI9ENua Z2LbklU5QPUcmQMh SSgbWFF8Z16dt5C3SCBa RIZfKZP3zQC4qZ0gpYrq bjogbGVmdDsgdmVydGlj VNlsOUcuA076NXQe rUseAPBdgX7wCJSezCWx zNkhSV2xMZFzmouoRxAT P8XAF75VWSKDE1ZZGlPa TMeEDC19M8VoZss6 IUOebUwoYU4cmRTmRDpk Ar7wyHoxeWpfSK5nDMVy ltgcZVLfwO0oCEQbeYQu xExhRG5uAVKnmdwy x841MyLhCBX6BWQqgOQe R8YkzA1aMeWmUHGnRZKi N2OkpCWqDTxjF279KXsj ZkO0SJVvruOnO1Mf KFMqcFlyUsQ4o2Y0Hc7n YW5dJf9xZCY0TE78IJ18 pIPfo4S5uAG7K8NeJWOv seeifvjvbEN1JMGr IZXlsH68zUQkRQohUr5b z2H0c785ITKiDHDmvT86 Xd9khSmfEXFliXEUdZ5r vekoa8ztrdquZxGf BLImHUf3HTm3REDyuOak XdIaFKW9UxB6CPG5gRFu aE5gpFwpnbcrrW4oIbf+ JOPtXKNpwrR2N1Nf Zxg5JSBmoWdaVF9meJVd JKtdMg9ecRlryPejKC3f PIBujealHEJlhZ7iRHHc cUUxoKtsFB3mFKMa guvle209EmRmEHZ7PVYs iMNtZ6MfaL4fOuVkOIHt DGRbM4QfsCLuKEfuB770 CRhtQoW6MJCzlqOh L4RqPPYkmRkqUgE2f0W9 Ku6VTAbHLY60RL82uBJx f5Y6tHR3C7YdEALhfppi nigevFJ8MGRbDKVm xU40pPHhMWzkRa7os6W3 i332NOXnQZElcL87Ax7b rVflTOIxyITQhI7vspte b0pbjewgJgLeBUHi OMj5HHy6GWAwlPymLwPm FEV2SyQ1FKA1aTWljW6x qVtplkaepY4rJuy+T1A8 D6QwVcicmEO+PC90 FPHyWX97xRKepLWql9yd iFf0GoLxEQPzYAF1gQfy MIyfu8QmYLByG00wiHWt b4M6KJAuoWdjdIOj PjKltTC4hU0uKRcuwtba y0kjtiixWyukw4ablb86 tN74O34ePSqlURZdAILx BUBdZUUxxJyhte2b lF6bIn8+VHKqsVU8bRW4 pR1hCrZsQvB2RJthP215 OwOjyUXuUrkne0lai4gg zQw6VaEmVNCivkWo ePtjJHK1k4UxIi61S79o IHdpZHRoPSIyMCUiIHZh tWaksb1iuJ6yFm2+PC9j w2cmrs73uI80wRK+ FWOdRLU4zMdbDLtxVIAm aT6oAUbhUjK5SEYnFhWq pF61lNLeRZnpUz5bwTwc kRmeOB5zBNZjpjna m545UxXtx1ojVHPfhREz WHorWBU3Z10db7O7DSAp SOFgWAW3pCJ1aD0utFmw bjogbGVmdDsgdmVy jMueCDtrDTtfO123CPTn iIamYpMylOUpD7ptnwYS NK5nHegwvWH+PHRkIHN0 kBukTIjnORAslY3n TYLwI6r4YnUxIpF5XHfj S4IvutH9KVQsnNEfNUQj tWWEoD3rhvxlg1zcesyl WyZbSBWePUb5LUc2 FJFpkQxeToFaJHS5VaW4 JFN6cQCqxG0exYhcvqxz tK6pFkw+RklOOjwvdGQ+ CVTuIRZ2nUshGVpc LYCuhJ9qPPKfT4c2GeKr RuL6BEvyR0GyyaV3TKDw lDGzLZUliWYKaV8iepdp y8cocrwwMuZvVWNx RAd5SNe0SHCuaCoyUdBr JOQ8WrF8XJM5sBVprU7f cRnfshuecF2bFmx+TVJO OjwvdGQ+PHRkIHN0 gZhoWXtsMGPurC0iUDHp A9o9MwApWiB9WLfqP7Or fmL6AZKivDQzUJKpyPPD dI6dxrebp4zlglll QiEaHTWlALu9UPf3AKKo tNtxUjKjZHX6TqC1QTX5 wSWomB8tiYwqnozpsK4i Oyc+WVN8PZD6YL47 LV87J6TsVcxqdTDalVB+ PHRhYmxlIHdpZHRoPScx YEGyWnVpgMlfIG7sFc9t ZGVyLWNvbGxhcHNl OiB (more content not included)... [facility] Provider [facility] 06-25-2021 Provider Orders [id number] #1.00OTGTIFF [facility] .Auto Diff 1on 06-22-2021 Auto Callow[place] % 10 % Normal 11-21 [facility] Comment on above: Performed By: #### 1 [id number], [id number], [id number] ####[facility] (DEFAULT)[address] [place] [address] Baso Abs# 0.2 x10 Normal 0.0-0.2 [facility] Comment on above: Performed By: #### 1 [id number], [id number], [id number] ####[facility] (DEFAULT)[address] [place] [address] Basophils/100 WBC (Bld) 1.9 % Normal 0.2-2.0 [facility] Comment on above: Performed By: #### 1 [id number], [id number], [id number] ####[facility] (DEFAULT)[address] [place] [address] 33867 Eos Abs# 0.4 x10 Normal 0.0-0.4 [facility] Comment on above: Performed By: #### 1 [id number], [id number], [id number] ####[facility] (DEFAULT)[address] [place] [address] 62972 Eosinophils/100 WBC (Bld) 4.7 % High 0.9-4.0 [facility] Comment on above: Performed By: #### 1 [id number], [id number], [id number] ####[facility] (DEFAULT)[address] [place] [address] 66554 Lymph Abs# 2.9 x10 Normal 1.3-2.9 [facility] Comment on above: Performed By: #### 1 [id number], [id number], [id number] ####[facility] (DEFAULT)[address] [place] [address] 41940 Lymphocytes/100 WBC (Bld) 33 % Normal 14-48 [facility] Comment on above: Performed By: #### 1 [id number], [id number], [id number] ####[facility] (DEFAULT)[address] [place] [address] Calloway Abs# 0.9 x10 High 0.0-0.8 [facility] Comment on above: Performed By: #### 1 [id number], [id number], [id number] ####[facility] (DEFAULT)[address] [place] [address] 18020 Neut Abs# 4.6 x10 Normal 1.5-9.2 [facility] Comment on above: Performed By: #### 1 [id number], [id number], [id number] ####[facility] (DEFAULT)[address] [place] [address] 78200 Neutrophils/100 WBC (Bld) 50 % Normal 44-88 [facility] Comment on above: Performed By: #### 1 [id number], [id number], [id number] ####[facility] (DEFAULT)[address] [place] [address] CBC w/ Auto Diffon 1 Erythrocyte distribution width (RBC) [Ratio] 13.2 % Normal 11.5-15.0 [facility] Comment on above: Performed By: #### 1 [id number], [id number], [id number] ####[facility] (DEFAULT)[address] [place] [address] Hematocrit (Bld) [Volume fraction] 45.3 % Normal 34.8-51.9 [facility] Comment on above: Performed By: #### 1 [id number], [id number], [id number] ####[facility] (DEFAULT)[address] [place] [address] Hemoglobin (Bld) [Mass/Vol] 14.9 g/dL Normal 11.8-17.7 [facility] Comment on above: Performed By: #### 1 [id number], [id number], [id number] ####[facility] (DEFAULT)[address] [place] [address] Instr WBC 9.0 x10 Invalid Interpretation Code [facility] Comment on above: Performed By: #### 1 [id number], [id number], [id number] ####[facility] (DEFAULT)[address] [place] [address] Man Diff? Auto Normal [facility] Comment on above: Performed By: #### 1 [id number], [id number], [id number] ####[facility] (DEFAULT)[address] [place] [address] 85750 MCH (RBC) [Entitic mass] 31 pg Normal 24-34 [facility] Comment on above: Performed By: #### 1 [id number], [id number], [id number] ####[facility] (DEFAULT)[address] [place] [address] 20642 MCHC (RBC) [Mass/Vol] 33 g/dL Normal 26-37 [facility] Comment on above: Performed By: #### 1 [id number], 3323460, [id number] ####[facility] (DEFAULT)[address] [place] [address] 34301 MCV (RBC) [Entitic vol] 95 fL Normal 81-100 [facility] Comment on above: Performed By: #### 1 [id number], 4936614, [id number] ####[facility] (DEFAULT)[address] [place] [address] 69446 Platelet 295 x10 Normal 138-427 [facility] Comment on above: Performed By: #### 1 [id number], 7872538, [id number] ####[facility] (DEFAULT)[address] [place] [address] 13236 Platelet mean volume (Bld) [Entitic vol] 9.1 fL Normal 6.3-10.2 [facility] Comment on above: Performed By: #### 1 [id number], 8183091, [id number] ####[facility] (DEFAULT)[address] [place] [address] 74070 RBC 4.78 x10 Normal 3.70-5.30 [facility] Comment on above: Performed By: #### 1 [id number], 6971496, [id number] ####[facility] (DEFAULT)[address] [place] [address] 27292 WBC 9.0 x10 Normal 3.5-10.5 [facility] Comment on above: Performed By: #### 1 [id number], 8012984, [id number] ####[facility] (DEFAULT)[address] [place] [address] 11110 TSH w/ Reflex to FT4on 06-22 TSH Qn 2.41 m[IU]/L Normal 0.45-5.33 [facility] Comment on above: Result Comment: Gene ral Population (males and non- females, aged 21-88) 0.45 - 5.33 Females, 1st Trimester 0.05 - 3.70 Females, 2nd Trimester 0.31 - 4.35 Females, 3rd Trimester 0.41 - 5.18 Performed By: #### 1 [id number], [id number], [id number] ####[facility] (DEFAULT)[address] [place] [address] 96731 US Carotid Duplex Bilateralo n 06-22-2021 US Carotid Duplex Bilateral DUPLEX ULTRASOUND EXAMINATION OF THE CAROTID ARTERIES. COMPARISON: None. HISTORY / INDICATIONS: Evaluate for carotid stenosis TECHNIQUE: Bilateral common carotid arteries, extracranial internal and external carotid arteries are evaluated with hogan-scale imaging, color Doppler, and spectral analysis according to a standard protocol. ICA-CCA ratios are calculated with medical center representative peak-systolic velocities and recorded. Vertebral arteries [...] Jules Tilley 06/22/21 2:18 pm Technologist: DIANE [facility] XR Chest 2 Viewson XR [...] MD 06/22/21 3:55 pm Technologist: SE KATH[facility] Coding Summaryon 05-23-2021 Coding Summary HTMLBase 64 UmnlhnqjFNs0bEw+PGhl YWQ+GF3VHUXrJ05btASr eS9XU4eICK6SAOMWQDHE JI3SLO2zsHA9WMsaV5Nu biAv AokgrEEdYB49KOi1PBP9 zLwyUYgulJ2dpWHqA0l7 QzOhNF15vM58KKeaXJAn XxU8BaQpdmmwpXAs I8hcUzZhxZFbKtp+PHRh YmxlIHdpZHRoPScxMDAl MsBpqOysEI3zGr2hJALb LWNvbGxhcHNlOiBj a3dsRYDfBEwlXC4ouQvp B2KwkMV7PKGgz2u6Wh09 dHI+SYQlCVT6sGsgVTqj l199WmZye5myPXW3 wKSoWEmqGOL2I66se4Y0 IGHmOGRfUZT4aGQ7rD7y tRydehsfZ5BsbUGtDqC3 HVC6rKTrhW6bcVbk vrkctB9dKqy+I52OGW7P RKLXJE1ZXhl6B1FdRmma dHI+JF67ONIuSV86jNBm nHHbg5mzdDu5NuUn TADjNXK2qLpfVMiue1Ek TKHuO05vqODoa3O4ADZc qClnuXSzJiAdgKX3kY8e PFwmtnwru7ejnzxm Uajoa1bvhz34xS07K93x MFwkDQMuXJK9ZKWqYNBr qIokwm4izB8xWw2+IDxj g2xfl4cmmAn8RoBe HFZhsqKaqTvkSIT4m7Ow Gp08I7VtdBcgd9NzVio4 zf50oAYbj5U2sSV3RRxx QMDwpE9pFPykTfT7 GOWeSyPtiB50pGYqHCxj Gh8ptCxpdBvuFW0zYNAs qiggSFMgiO7cZPZyuJSs sDaiTE9qZILhbour r005GlJeEVR9ARObbVXj O9TagG6zVhEhULXsOBYj C5CzkVSvTFniN576HTyf IsQ9ZHUvduQnI9Oa EXXbzRixFtI8e0O4Fz4E c1NddyhaANH3HPtcOXR9 OhS4JlHaCfM3S4QlExp9 IDQbuRmcQX5sE2Uc EWIkbznyoxezvUE3QTBj PKIdoO24cWCgSMxxUp9k g7G9a081EIKhNSTygF06 Yc4buQqjIDGsxJTZ zE1usgwdz1twjpezOkRk SWYwWVk6QTa4OUGxtLls ZvQlEVM8BeQ9GWB9bIJx rJ0ncEshccrquV8q Oyc+Z88zzJ3aNLI3HSP7 irlgGNLgjyDiDB88PJ98 E5UmOujudLLgnDR+PGRp wqRzbAprBO3nCzEp e1qkz2LcETphL1QjEQGy TTssGqj9EXClPIP9oBH3 mM2kTKKlNMmef1I5vXE3 I0YhwoPuau4ym4qb QFRhKCoaT44uzQDzw2R0 NHTalWY0QLGukHquGeVk sB53Btr+UQMbkVnje3Bm Hlnmi3fum7jatUz6 IjMwJSIgdmFsaWduPSJ0 o5DvTh75Y22jSOjbPJCh LRBnWIDrHODziLuqvh3d rC3fVc2+PGNvbCB3 fMD4cS4cVPUjSoX5CKjk N121HoMnqKOzQtyuz9sl w4pzaHo6OgUwFSMmrdLf eUrtNBW5d3JyUe50 M15jSGtkPRDgKMNyTIQz TVLtyVxgse8doY2kMd9+ YW7ld8blga54wI95eEX+ YOYxWJQ5zIkcSQbx EFSibT7bJQzrToU6PFUo WjMfkG89tOOpFDvpKt8o jPeriJpnGC6eBJVkfhbw u218KfHgu4ysOKHg iFZxQBtzUIX8X68sj6S1 XZQcPWQpHMA3vMN9eJ9u bGlnbjogbGVmdDsgdmVy wKxiUFkrDBikF576 IHRvcDsnPlBhdGllbnQg DyTrSEb6V1YlBus1LOGk yDdjZT6euLDhNTbbBv0s qMlnvPikPT7qOMAx umiyc435LhTah7feOYTd bIJxHTygLUE8L44fz3A8 GFQbNONcHXD8kVB9lX2k bGlnbjogbGVmdDsg ppPglErnZJcmVKecH562 IHRvcDsnPkJpcnRoIERh jVO4VS30BQ39zGOnd5H8 sOV7U1PuRSRjsgec mttkbON4EUGhMPMqzZ09 Bp2muPktId4iUTFaAFP1 DJObvJRkV2WzdN1hThBk POEbXVIhS4UvyFFv YIvnX010WAmxWyB3RXLo hnXaQ4TbQFYdqZjrPdR2 y5D6Vc7XV1V7PL14PU57 eNYal2R9cUX7L6Mo CFJocxjnenstoGX2JFSd NKZqpY22Wk9vmHbgGy3o SNQrSPE9TBUxhWHfW1Qs eV7mRpZsYJAvZSJe S1OdjADnJPizK481HKtk OwX8GXLvzlJgT2IwUAGn jLeaJqT1o8E5Aw3DPOa8 HM60NZ99sKFzl2Z4 sFS6W7GhEFMnerkkldcr iUX6LGFrCCZlhI81Xb7j sPqiLu7cUNNpTLL2RVHw dPDiH0NrpU1yTaTi JZXxAESnT3DomCWfJIpc D051ZPbbUsX7XVXnevAx L4ObAUIdgRjcNnT2l3Z9 Qb6DYWWiED82GIP5 nST7VT91IL34W3LfTefr dGFibGU+PHRhYmxlIHdp ZHRoPScxMDAlJyBzdHls RF7iKk7sVAMhGAOr hIuazTItTyPmj7fhHVMk QGpaXD2qzDluU8OofTL9 BWIjr0g9Yr43L48mJ6Yh dXA+IUCgzPD8bJU6 dV5wCeMdSuC2PEuxK433 RyYnyNUoLrygk9bif2nu oYv3LhQ7JEPctpDhvRql FCT3g6InEq23Z47i IHdpZHRoPSIxNSUiIHZh qSxchm2ufF4fUp0+PGNv aKE5yCQ9cZ4mVtRdNcQ0 MMxgP286VqGdtCHc Hfiyu5iwx3exhVy6KiAv PDPatiCbkGfbPNW7g6Bo Bh53D0VkqTtof6BePhn4 bf80bSImp6J5iTK0 S1OxKTYbbtkekJLdfSqs XX7nFAOfyqbkPQEjlW3x TNIcV2r2TyCnFnI8FJnu C7YeeeB3WZQqxXQp OPzpTIU9Y21fq0K3RMDp NUEnUYO8yBL5tU1odSly bjogbGVmdDsgdmVydGlj AHyyETqhC693TUPu xZotDHBouW0lQELbqMAb aLrdNM6kYSGyeotnTdBK H7YIF85BSSFOF7EGPyOn CYcHFL88D6IkHvm0 HYAjhEgyQO5tzBEpOIlt Oq1cjDvrfJqfKU0cMSOs zhjqIMKonG4pGRQcfNZj iOaaMC6uGUOciytm h333PfJxTMT9ZGGuuPCa L5YgwM3cCzZkVSEuUTUn Q5ZqrRShGVvzP502UGzn VsW0XMOmpqLyZ5Dg RGXuxRcfKwW7u8K4Gs9a IV9fQd8iGJK9SF09LM51 hJLmt6M7oEX2E5RnXZFg ssuvxvlbgAU7TKOi MYUitJ00yOZgINzvFv4b b1A4b649TFQcPKHveI47 Jf6cmSnjZZKhjQIGaB0i nsaiv4gqufvbDyGx HQErTRt0RJa2QATniRhj FeNoPPH5AwX4TGS5nHVy fT6lhNorcywcfA3yKpy+ VNBaCEKhyiD5G8Ej Amc8DONcpEcfUH8ygZVi YMtgZd4adFhutCbtMM9c SUDosynlHLWtnD6kBQKs gDNktLuwNR8vKECm kplqt970EaMjWQD1AWIf xROyW4EacL5kMdZxDEAd WGRtW5WigUCvPOzxZ836 WZkpOlG5ABXbdyCi Y9QxRCTxnWvwJnR5r4A6 Mp4DBTuMHB56SN32aBSd q1N4hIS0A0KkTCQmyohz egkpxNW7JMKdTYJj hY71qCMlAWeeCs5af7K6 g262UUScOJUkqB88Et8r gTigGTKelYLJmB0nlgnk l4ffzkonGzCjNTEx BAu0HBk2ZRWebYfpCpBq IVH2UoY3JPW6wHLnkO7u uRyqnwmfyT8zSqi+UmVj aYJjlU5wYB52gCKl pBsozcM0Z5ApAznpnOT+ WM46TAWdVA56iBXkqGOm y5fywGb7FaRfAZSxZDQ4 nUyiXEleg1OoWMPj H24dyPBqw1C1FGWddCjb sQLuVdTbxGU6jS8zBXdn jkxox9lffmvpOtimq0jv aq24fF16Q28uARgn ZHRoPSIzMCUiIHZhbGln fb3lzV6iFv4+PGNvbCB3 dUA4wS7lKnJdSdG3BRao H878DmJajMMtRdqv f8rkn7njyPk4MmTwKQZh yqVnwUdfLYJ0o1GuSd12 S87cPIbrJLYeUTRbEAPi FJJyxAggzo5fzA8k Ii8+UM5mt3dffq24jV17 dHI+TRPgPVQ1fVwnLFwi EGTojH1jXJjcCnU8EJBp GmFuaY08eYSpIXmx Ib3bhDmvtWzeSX0bBLVc lfqde823NbLmk6ypSHPs jTKzMUrrZHH6E66zy5U4 KULcTJLhSYM2gDK0 yA3grBxvqyhsxVBmzCwu kaQoyKvoVTbkVVbvW624 UITpoHfkWcRowBAfI7cs yvXFYE0eKerjrRE+ XHOiPMN1nConQYfcHZRm eP6yYQXzR2c1ZuTxPuC3 LGloP0AmzqP1OXUmoFEs WZXtbKGGpP3owruu g1bxqpprVrCaJEAoWHz0 RLi3WCKboVkcVhEyEQL1 ZtH3BYV9nIEngC1dmFxp uyocmU9cDlp+RklO OjwvdGQ+NEYvAMY2tAgv WSguECIpwK0vTPGcJ6o8 GhUhKdU8LMkgZ2VbprN0 IGJvbGQgMTBwdCBU uO4zckcqn5weoewgOzLy CVCcFMi8JHd1TKIjlOty CcXkVUV4ZnG0XTO1mCNt jG0lqQxguzymbH0b Oyc+TVJOOjwvdGQ+PHRk SXB3mNugJOpxWYJudO5v HRIyJ0i3RxPlQuQ6KXkt L5HhozE4HCCznUPs BBRlxUJCnQ0bsllwf4qr bgwiIdQuSWAaLQt3UCm3 MNNitJwcEtKjTQF9HwD8 ISE6wQFfgU5tnGho goeefU5jHax+GGL1WRA0 OO85MV30S3AxYhvhgDJl bGU+PHRhYmxlIHdpZHRo PScxMDAlJyBzdHls ZT0 (more content not included)... [facility] Provider Orderson 05-17-2021 Provider Orders [id number] #[email or web address] [facility] Coding Summaryon 04-27-2021 Coding Summary HTMLBase 64 AegvpemfCMj6qHb+PGhl YWQ+OD9DORVrD65crTBr lU3JG9yXPG2QUPAUQVBB RG0HLD9qoWL6BGrjN6Dh biAv JdsfwPYdDH53UKy7TNV5 kNteMJifkT7snBUoY3v2 UbPsFH70dW21PUnvBORr YaP0EeUzhahmnHFx Y0ymUhJzrDXwPmn+PHRh YmxlIHdpZHRoPScxMDAl VbWkhKnfOJ5wKa7iRTMj LWNvbGxhcHNlOiBj u6ulBAEcNYxyAG4kcEjp G0YneEH2PQOcr3b4Tz14 dHI+XQWsGEF3uQujTIia t917JgRwx9zbRNY0 tVGpZViuGBV0W23wp3S6 PMMwEMOpHFY4nMB9oT5e kPtoryrfZ6IcfBRtWoL0 LEE8sEZikY0liEng engreO5rPid+J37EAW0E OFDLOT0KYbp5T2TnDvvx dHI+DT82ICFwFC09yINk fJKmz1ttwRf7KiBt LWHkUBU1cWtyRXmqf3Sk VTOyX67foUGpr1I9MGTr xErehRDpNkNiqUJ6yC9c RJwyesrqw5giioei Ikbfc0zygi17lM91L10l RRgbOINoPHA2TFBrJPJc lEkcxo9kfN2vNq8+IDxj j6ncb0mfsYa2EfUi OKKamhKxyWetDSU5s1Um Lk26K9MboRufe9BsVsh4 la07vNQua8P9zEI0GAkz ROQajB2tOUguWvA3 XMBmIxWrrR34rIQxARnm Bk7fpQhtwDubNE2tRYTz eznfPHEtcO8xVPUgbTRj eLfdPI9iBMKvccuk h281QlDcPWG3DIJgkQMg Q8RacV4zXmTqDDXgICVv T5AsjZJwDSfhT274RKmw ZaA9VPQorzRcE2Zc VCOkoNabQlC9n0G5Qb9L x1VdfatyYLM0ZMuhRXA6 KfP0LlZzQtH8F9QpEtl2 BWKeqVkhFP9uW2Nw TADodmhxfzjtnQA1CTAv VXPccZ46mVXqHOomAc7o p0M8k620WPDdHTBrlU38 Jl9hgJfzANLpwWBA yB0eqmqde8bgiloeAnGo DAKyASq2UJz1GZGzwArl DeCcQFD9YpS4JWX9dHNt cH1kxLzjioyokO5t Oyc+J14koY8xAXG4JCX3 hudeFYZhmnIdFM32HE59 F6EuYxfhtVZjmWF+PGRp etByoRgiBS3qLzMu t7qgp1BzZSelY5IjJVPs IIicWjd2UZTkOGA2iZR7 wX5rCGHhMPlpr7W7xBL5 P3MsrcPpnp0wr4ye NAQyXJssA33biBDdi4Q5 QEPgxSQ4VEHtlHdtLsJf aK26Ssx+YNMxmCzmp0Zk Mimvv4ybp8ycwNp8 IjMwJSIgdmFsaWduPSJ0 s6SwIj01F87hKRihRHHa JNWoPOIwGIDrqRfhct2g eU9lWt6+PGNvbCB3 qEA5eY5dYMTxUzO1NFkt S016KhKlzOIcAzypt1jd x0wkdIv0WfTfIRNfigOa sMhhTFC1l8ScDk89 I73dRVymDZFlSDHmVPDk QBItiQhbzf2mxK0vGm7+ GO8tk3cbow84cH29tVP+ IWXvMNL2fJrvXXjn SSTjjA4eJCasMzT6DWIl VzDtnP94jLCdBRmkBq5v iRzmkXbnBH1yLWCqesvu d591JoWdx7ewPTBm fAMfJUiiGKH5Y65az8K9 JHHzWVTvFYE6gVX5dZ6q bGlnbjogbGVmdDsgdmVy vQpuHMqhDFpnI012 IHRvcDsnPlBhdGllbnQg CbFjAFj6K8ZiIpm7ACCs wUrqAD1dhGXfCCjiUg0g fQxgpUcfUC8kETBh phaxp625OqBir9etFKEv tNLeTIatCDE2E20jb3A0 GNVhYOVnWHA2oJD3zH4i bGlnbjogbGVmdDsg qnGzpFhcUSzxJJamC144 IHRvcDsnPkJpcnRoIERh zLW0PH24NA53eGMvk5B9 aSX8F0IbTDBmpkyr ornytRF8OLMtOZMuhY93 Bv4ahLuwIc3rZISnDWH5 IUKepBDoG9JjjX8dFpZt XFMvQBPcL3VkzIDt NYekP308HRaiJqQ4AJQe luUmA2MeMIGsvHueVeP2 r3Z5Uc8JE6V9XD21FW97 vKDpf9E2cJT8P6El BUGftpgpzoaobHY8FEDk WDGjxJ89Gk5rhKvjHf3h OTEyNTH7FLSwnDClU8Iq zQ4dMgYaOWOxGFHn Y3VjoEIhOGawB623HMrl IiR0TBPuayYtY6FvQFBy qKqlHfN4t2Y9Fq8GKIy8 KC58QY67qSTyl0C5 gNS2X3BhITAhypvxbknx aNM0SNJaKCPhpV12Ki2g sDaoFu9gTMHnFKO9CIMi kATqV5RszP5vIcVw BGUsDGJkF7EwiUBnRHzf D986EDstEtB3HQFqdoDh O3TeRDNnrSpvMqW9g2S5 Mg0AHCGnPA00RNE7 uBC6RT28GH91D0WfUsen dGFibGU+PHRhYmxlIHdp ZHRoPScxMDAlJyBzdHls FL0cPb9jJWFtLKAg tTianAMuPuWkm8grKFMl FTgkXB6xvOmxE5TllAF5 IRUzp1g9Be08J92qY6Jz dXA+SBAxdFQ1eMJ7 jH1uTzPoQxM8PFmaT447 QoTewJVtOstga6ipn1wk lTl7VuF5ANElbqOvpWxv RSB1z5AwGy58C55x IHdpZHRoPSIxNSUiIHZh wYxaus6fvG5oOz3+PGNv dBH3eVO2cW9rJhOsCwJ0 NArkN167BwPtnMDl Csecf2bin3ffoTc9VoMb UTLjufHysDyfNIN5s8Pb Xg69H7GvqWwpa3GuGuf6 qt41iPWzn4S6xGK9 R1RoKNBhagrjgPMekPtk DP2xVPDrobbsSOQlpH7o QUTfH9m3UcWcMvJ7CFjq B0DppxQ5AUIyqNRb JBtxMIM7M70lc9F8VIGo UTNnZJW6iYX0cV1wbCps bjogbGVmdDsgdmVydGlj FFusMSywC395VPLf hMbiORSkyU3nIERklINq sNqeNN1fLQXdcbivCoGT T8VID52OKJXDS7LOSuKo UXdPRM84O2PlSiw6 GZDvsWyiSH9olXOgFLqi Os2hwLrarWbbEB1aPBMj ruzdQYTfxV0lOEWsjGJt eJvuFK6vTSNduoxa z542EzNdELW1KWBnyNMs J3NeaK1cUxWwNTPdOPRo S0MgpJTsNHtqC029ONao MvV3NYIzfcGzC3Bs LWZhaXfjNeG6t1R7Pn5h WX3mTj0mUZD0DN81TF88 sCQkq1J7yQZ5H7WcMOOu vezvgfxpqXT4TYSe CAEkxN98aVTuQJvuMy2f p6Y9m128WXLbEUWxbD29 Kq4mzLnuCLClbMDUdV8v dgkvu1ckeratZtHx AYAeWHk5AOx1XRZgrRqo KgIdGJJ4RzC9GZM6qOIi hJ7sgZsmzvaueX2xZuv+ CCBkGXGzuaL3R3Dv Yrq1EYJmuYxwAE4epXEf MUytBr8kuGpbtTsdPV0m NEDeicbsAOLgiD1fTRDz kAGayVyyJC5nCWZk qgefy293PvXuPHH1MTMu xUNtN0NpyU4cUuXcPXFl YXAfX1NwzKExOKooF100 CLgzIkB9YIHnapDe Z7OhMWKmrFczPiU8n3W6 No7MAAlCSW27GP78tWWe f9G5kPT4F0UfDGIjnwuf lqckjTS5XJSwEWTw eP08oXBhJNykVb2jc4F4 x185ORPhOVUhcO17Eb2i jAfkLERekAKMgT1jcire g6tyouwiNvCcZFSr VDk5LYg4ZASamPaqZoUb CDD7WgU2KNJ5lPTpaT7z oBzyfvaonA9eNfb+T1A8 V5HiKwmdiRA+PC90 LOFgTP64bPQobGWxw3ri yWd8TqHpTJLnQRK6jZjv UTvkx2OmDFCoP61acLLp f6J5OPAoiSklzENs WyRyuEO4gJ3uJYdmfujt c2tijzvjDucss6syty89 uF09M36vCStjQYFaVZSk TBCkQGWraSwvdf9f dF7jKs6+YEAosNS4rVV9 uI1uCoQfHeH7XNnzG031 QaCixCHgNpfdf5szb1pz tDs8XgHcGFYdpbTd kPybHJR9r1DwSw92C28k IHdpZHRoPSIyMCUiIHZh mPjfpz2xqL1sFw0+PC9j s1fiik79aB58kUT+ XWYjXRF5tZycDCugLTDw zC7qAXhgWgG4DGZnKiCn oQ82oVTlLOmsUb8enAvc gJfsTJ8jZPIigpcp d769PfAgc4wyBGOzkNQx ISjlQKM8P96ez8R0ZZKj NPKdHFM7iPT8rM4npHpc bjogbGVmdDsgdmVy kEqoZVsvZYmyY898UHMm nMzpCuSvkPIxL7dtsqTV RQ4pOhyzbJK+PHRkIHN0 hXblAIiuRDNmdO7e EYGvU7p3AtKeIkX3WUbn H6NxodD2VILfhRHoVMYa cHBPjJ3zxqglv0xmbglp EpZoFLHlJTw8PWh3 HBRjvOjlWsXtKFR9MhJ3 XXR4kVIonR5dyFjmaxrq jI0kKzx+RklOOjwvdGQ+ GIMvXHY6nLqqHFjv FAWprM5xYGOaF5e2QgPu MvV6SButH0OacnL4HXYu oNUuMTRarSJTmX7jbbfz t9mfqlryKdYqIYMt UXz6ARg0VMCuhUgoXpAf ZPB8YyX9ONV8lVWcvM8u kEdsozkkkB9zMsc+TVJO OjwvdGQ+PHRkIHN0 yLlfZFzyEKXlyY5eZRKu Y2x0NgFrSpY5ELjmW1Hy geD8QDCduKBrHWHszSNY fN2wpayga2mbivyg YbDzDNHvBHr4QWj5KSFq oEcmSfIgBLH4ZcJ8RJO9 uYOrsB4anHtudiytoS1z Oyc+TFS7FEU5ME84 JB57T5HoCxigyEUnlLM+ PHRhYmxlIHdpZHRoPScx ULRbWeSaqDhrBP3qCz9w ZGVyLWNvbGxhcHNl OiB (more content not included)... [facility] Coding Summaryon 04-06-2021 Coding Summary HTMLBase 64 UevkofbkTQu3oSq+PGhl YWQ+HT2EOKGiA21rbJTo wY1VT4tPMW0BVHPZFEYF FB5WDD8xdEB0FTnuX4Ns biAv MpopeQJeQJ68ETf5NLA0 iWolRLgsvK0klIDuN9b9 XhQaZK77wL23EYwsBYGd JiC4PgHlspuumYKh P8suCuJyzHVzZkx+PHRh YmxlIHdpZHRoPScxMDAl RgGmjKxcUW4hZm1pQYFh LWNvbGxhcHNlOiBj w5tzDIOvBXdxSW6beSof Z3YepZA7RLEve3i0Rw92 dHI+NRTwIND3mFjkGXmy x540CtPeg1yoSCY8 rOIwUKzaBMF0E31af3S1 NHDkDXQhEKS4qZI6lK0w jHqoikgxJ8VkoHOvPiV6 BAA3kYTbyX0glCjg nutffG2pWcn+O66YVP2F JXTOAN8DXqw4B0WfPjjy dHI+CQ65EKDvXP42nZMq rPAef7otvMs2WyTf KBMwBGS9aYleXGrvt9Qx RVDdG01meRTqd7W5YEIm oXqmgVQhVcWgaDC1uL9h QHcxdosqe3qdjlvu Irlaf2jjou36kI36P02a KYgyJXQfBNT7NHHyVRZs hAgyhu6suL2pBp0+IDxj n3cgn3mzpEr8UvNf FJGxprOyyNniPTL7y6Ox Ev34L8SazNntb8ZnEee8 yt70aWUti6P3vLJ1JSck RZXxiJ5uOShhSrQ5 YCCeRcVowO11wTQhDJdm Jn0mvSyrbWxkKV4yUTYg vpumYNArzR7kJOPsqQDr qLncNG3bVYKrqyte s024BhRmQLM9SPOmfWOt K2AteD4zOoRqYRSiMUQq V2GjsYHaLVrxZ171NLoz OpS5GRZjpuTfD3Ei OOLmjXzmStV9z2T4Na6U v8ZzyrqrUFE8CNmtIVM5 VjF0MvPlCtC1R5OuFbj4 QNOipGjkWS8xR8Rr NBYghsanaiifwAD2COTr AYPdsO08tNPhYVhrAa8z z9A3h770KKJfXFVzlG54 Bb7cpSedETVdoHYU zO9vryzci0vxkyymLpHe XUQcEKb3VOc6BXZbbTpt QwEpYWM4OiD1IKN7mJFl hZ0wqXqljdbooG5c Oyc+F00brS7gAIR2FHP2 bhraYTHmhuVfWC25WO62 B4RfYqmggNUhpZK+PGRp iuTfsGkaUV4nKkPf f0dal7LjZHkaO5WnYLRh GVcrMyi4QNFiLIJ2wNK7 dZ1dGFXyVEvma8L6hJG3 R3SmyhItke7sm7qd XTFmZJcdG54fmSBcm5G3 WHSmxRI6VYOqrLszOoKk rP54Nnn+MJByyQuon9Yv Llmux2naa0rcsOc0 IjMwJSIgdmFsaWduPSJ0 a8HzWk65Y86zJPazNFRu IKVcWJKmDKFjfLchyc8a cI0sLi7+PGNvbCB3 gIQ4bH0pEZTpFfX7FMnk N313ZbBmeZDzUimun0kt l3cwfUf9QzShKSBfkuQy bKouQNM6g9AkGa18 U81dPYlbTPZiPIXwNYZx HCVdqKyttx7aiI4aNp0+ YO5cf5isuu20sR90sRI+ INZlSZZ1jFfjJQbe COHopE4fFAgmDyO3AIEl JrJpwB68qYNxIJdiYd5a fVmviVhsPZ6gROMwnbkc o451OdDdm7unANLa wVMvHFrcKFK2P19um6R2 OLReTGYxJBF9cKJ7vF1h bGlnbjogbGVmdDsgdmVy zZarLHxiBAojK314 IHRvcDsnPlBhdGllbnQg FvLeRRk8U7AeFwp3ODRs lDcwFW0uwNUjRRlxDk2i rZumwMarMD9sIOOi dssje098XqAmx4gyLPHu iBBcOLqcYBB4K41fc3Y7 JVRoWFPkSGR6hRI2uD1b bGlnbjogbGVmdDsg pcFhrAuyCCbqFGusP318 IHRvcDsnPkJpcnRoIERh oPB8HO00SL30kBRhc8V8 sDH2H0RdSSIgmdvx obxxaKW1GFJxBQTakF45 Fs6ozOcgRq9rWBKhWKR7 NBSyhYNbB7QjxH7lFiIm FRAnQFAjS0LnrNNk BWqlQ258DVpfLqS0BOCo yfLtD8BtXZYwgMrbUqB1 y8I5Fl8WS3X8UR68ZS53 lAToq7E0fTX9R6Hy YFOqmvbbgyhadLR0WZZe IIYygF80Ok9gcBmdBz0a GRWsYTJ9ZOFlwKKnN3Wm iQ9qEzNwRWEwTEUh T8TtdTLeZVgrU311OMcv LqO2RLLhhjXqQ8UrPMLg fRzzOtN0a4M6Jv6GUKj7 BU09SI07sIMir5U2 xDX6R9KbWYAcebzyimdy cCS5ZPCmHSFjeG73Wz0z qQujBp3jYYXjOMR1ONOs wTGhJ4SlwX3gThLt JIJnHXNrG8UtoTYtLNfq B887EDgkTsU8PRAvrzLe T7NpCOEixWsbScZ0t8W7 Kc0UNJNaDI11VLD2 dTW2LI07RY28R8HqPvgp dGFibGU+PHRhYmxlIHdp ZHRoPScxMDAlJyBzdHls GQ4dJd4oUNSqYAWn pEpgmTLaAcXbn5kdEJXl XOotTQ7oxHvhK3BkaFL3 ZGPdq8m3Sr10Z33nD8Dh dXA+DHMqaRO2uBJ3 fV8oDeFmLaS2HClhR908 HaGanPQgRcovk2rcb0vv fIc3JeI9VKMmsxXrmCen NHW6i2NiVk33A15j IHdpZHRoPSIxNSUiIHZh aJogzp4awA3fZu7+PGNv rDM3fFK8cX2xRpVuUfU4 ZKttA403UlHozKUc Zwhtb6crh1gqjVj2GuYu DNBfoxCuiEdlZXQ0o1Bk Kk53Z4DpvIbja8CyXis4 pd76gSAdh4X8mVA0 F8FhCLFzbykcjIBvfTwu TM4nVNTlutfwWARjhZ4b DREcI5p4YnXlAbB2HQqf P7McguR6JGTwyDVn JYreUBO8Y12ya0D2PWUo CHHvHAK6iWP7xF7hkMfv bjogbGVmdDsgdmVydGlj MFycLOwiU098SFFd jEbuSEQcyH0wRAFnrGMc nPqtWF7uMBIvxfrhTgIA J4XJV89EPOIIQ2UXFpPt AYuETI11P1JfCtv9 FQAcaKjcXM0ohCNwNBip Rn6djAvmqWdnKA4cVAJf znxuSAVmrA6bDTXziWWr qJabRK9fJWZhcljy p564NoUyKPS4VYSdbFIa Z6VzhQ6pZtDrOGSfWCMs I1VjlDUiUUlwG710VBqp ShK0ARKnwzHcE3Ax JFNyxXioLbM7u4L8Gb7g ZG4jXe5gIJQ1AJ08CV70 nRXhl2B4mOG7D6BzDFXp vedchuowbQV7HMOb PAJjzM81vOAjOImnYt2q y7X3v933UZBwHHZcyM63 Nm1ywFxdLMNdkUXHbB1j jtton0brbzrmUbBb UUJiEHk4GDr2FMHhcFku KlBaTGP9TsE3HOO2oVHo eU1tgAaezytkiF8vRgj+ LEZrDJXiwrD1L4Yo Mwp5CQAfvStwTG0ugQBy DWtdTk0kkUkyaXukME5s COUndsxiNQPlwX1yYWSl uNGluUsqXR4qQYIi erpvv409GpZhPXX9MRNl iXWjC2NgsN2fZlZcYDIs WXFfK7DckQVrMKlfZ537 VGufQjR6IMBxplOw M7RvEFYylQcdJqD5o5Y1 Xl9KHLcXCE74QA73yOXf u8V5tEJ6H4ZdNEKsvvhv frduhEG6FWGuBLDp hH91iSKgMAruAy3uz4O0 c518YXKnGEYwxJ06Hd2g kMfjZHGzzEXJvI8ilbkt p2oeylucIpMuOLZb AVi4PSb3FLOgxTykYyYj LQQ9CrD8JFO0xKEjdE7s hLcfsnnioX5fIeu+RW1l aynwesL3DG38LI95 K1GrKdssmVUlkCI+PHRh YmxlIHdpZHRoPScxMDAl EkZwrDubKM2eZw5aEUNj LWNvbGxhcHNlOiBj v3zsVPRoDKfhOH4diQva M3VuoQN6PFFpq3k1Ug79 M06lV0TwfMX+PGNvbCB3 wTO7hN1aSrHvLhY7 ZSybN967ZzSalKWkGehv l4ssv9otyCh4OhDwFGGd kdVuxRluQIP6a1LbMg15 X01wSNnbDRJrLIKh LMCpHWBdwGqton0dkZ7f Ii8+XBVsnKI7bUE5tZ5o UkIwMmW5IErbO169JfUt pJJqAlarW81fY2Ub dXA+FKZvAlw5TWAxhWbg EX7fuTJdYQwcFu2uGRA1 KmJtPtDtDOpxE5LbOGPm ktnsckroeIM7KCXb XIOxcZ00Rq1keZmaQk4j XOPwEOX5KAOvnVXjG8Jt dH3cJhVwDVBpQOFvC6Ym sTJcDAdzX894RRib NvR5QICwyeDrK1JgCWLi wRwzFrU5b0M9Xn7JyMzq mBDjLO9oTmUkDUt3C2Mt Ouk0ZCHhpHmiZI2l oPQvQBvrZz3plIpeoRjk ZC6kWLVpyzrim001LjZp q1vfITUcjTTpIYsrAFD6 W00gx6I2YYRcVUBg GFE1nGV8qK9riHoxjxsp bGVmdDsgdmVydGljYWwt JYjwP990JPDcdDztBbUN Dmy8B9AcOdx1YLWt jPlmUH5aeTPvRPknLv3s aVupzNshRC1cSUZiucsi g900FpQsh8wuHEOxdTOx MKuvGLK7C07pl7J5 DUYbXHNjJDA4ePK4rE6f bGlnbjogbGVmdDsgdmVy fLlzYErdEIzxB685LHEp nTftUi1CKwr1Q5Gh Rma6UAJjzYnsRE8zqUKl WBwwYm4cqXphsQccBN3o QQEutymhx442IuLbj3oa IDEwcHQgVGltZXM7 T46ue9Q7DNHaWDQzRNV0 cPT9jN9mzVflxsfdkFUf dDsgdmVydGljYWwtYWxp H442VAIthKlrJnId eWVyOjwvdGQ+LX78ro15 W7TrIaejNpx7DVUfXNH8 tTD2tF1xFAPwDFkem4V6 dCL9J2GhzlKbfo7w b2x (more content not included)... [facility] Coding Summary HTMLBase 64 DtkyjngfEUh6yAi+PGhl YWQ+JK4DWWHsF19grEOm cV3XY6xUAJ7JSUZXHKQX GV2YRB9njHX8NNsfE0Bz biAv VncbmVZaJB83UXl2RCA4 nDvwQGqgwY3agWLoH0t6 OgJeXD19eO46TRuiSQFa UjE0DnJzrwozeARn Y6tpEfJjuVUyKsr+PHRh YmxlIHdpZHRoPScxMDAl ZdUalQlhMY6tWo4rFNLx LWNvbGxhcHNlOiBj g5ffHPLgNYikLS0iqWga G0WdfCU3ULDgj1l6Bd77 dHI+GQWbDQY4cOdgDPwi w272XtAim7nxOXU8 bTBgEJmbBXB2P25wz3U5 PJCgCBGgDLH1cCK5pM7z uXndobcyO9OioHQgUdL4 QQA5uFXasD4tpPqf vqsgeC8nQeu+H01DEI4G RRUGMF4THvk4U0TaCwoc dHI+OR16WBEnCE54bDUw aVXlm1pvoQe5NpSx EFKbDTR1rLevYOrgc8Nq ZYWpY96olOBgg4L3ORCo rPsxsKZqBxIljIX8sB7v IPazxoyqo7gjatys Yyahf8cdnx08mL62T69c ASxrMLFoWDO5MRUvMVPk kVtisu7qcI1iOf0+IDxj n7cqf4eeyPb0PoOz GYCqqjSsgSdeAEW9z8Dd Gt62J8WafIbgp5LmQlm9 ym15xBTyf2E7sXJ8LGnf XSJkjG1yYKxyElI9 ZOZoFoFcnE45pVHrUXan Ye8gpNisdMlaLS5wQOBe ndizEQKurA8fLTKywNYd eHhyML3jXRDosatp f487KfHeELP2QAJsrGCz A3XqdU3kAnAlAKCnOWAa G7FmiLIjRLaqE448ZNro FbU8KJLzhmMcP6Zu TPQdhBxfEjR3v7V9Oj1P d2RuboqeSUI6NZrhLCR5 FoQ8DjIlJaE4F1ZzYta2 WKUrpPeiDX5jO6Xw HUEuiqzzzgezjOD6CQIo SVVwtS50pVDkHXdkIy8b x8Y4a054ZOAtZPLzpR94 Sr1rgNvhNIZkvAHS uA8intdqv7fnznguDxUp DKUpXNz9XYf1QAYceHkr GqPxAYL9TtO8CVI2cYHw zH0hjZacqoptwA6h Oyc+V80nuE9aIVV4LMA2 wkgzTKQyfnQnLC42NZ03 L6DoYycetUByeBP+PGRp bbIqhVhvWM0aIbLf r4eqa3TpWIvdO9LpBJTp JPhyJxf1UFDnNPX3zDK6 yD9eNGQhQJnco6P7xGE4 V3ImfiUbot2xs9nt RPFvXWugM92pmOWvl6F4 UXPebGF6NCFzfGwgYdYl kB21Tkk+PWMbwFbqh1Er Vefag6fsn4dobSh5 IjMwJSIgdmFsaWduPSJ0 y1BgZb17Q55vKVsoTTIp VRYiCAQeTFDjqTfxyi4h fP5eWq7+PGNvbCB3 nDV0cH5xEKTzMrA9SYcx R468ZbEbtQJbTiqqp6qs o2kvnZd5ZsGjIJSlngVo pGhhRRI2p2VeNf25 F40vDNtwHTNcXMIqIOGb WTNovObccz3zoA6nUd3+ CX2ct2lijr50oJ71lGK+ WZSmRMP9zTicIXwu LWImmT9jYFlzBgW3WMVk BbVczA82cDKfVSksRk9e tQxzrNuyPU1nJWBrupnc v575XyByp3ttDGHz xMNoIAoyOKT6C35ux8F4 EIFfFHUjBWC7vSO8kT3l bGlnbjogbGVmdDsgdmVy gBfxSBtlTQibX551 IHRvcDsnPlBhdGllbnQg QaCoQQk8I6LwPzg7NTPn tJzqCQ9ueJDaWKgxEz9n bMpjrTdkZV5sQAWq lbwhl397OmDyt5pdBSQn fGMnDMiaLNV9R90ov9H9 KHGyNQAoUBX8eXA8eF4m bGlnbjogbGVmdDsg htVulBzcZDxsQKfgV900 IHRvcDsnPkJpcnRoIERh aRY5QD40EV40mGYqn4Y9 fLX1J2JuLTRlukkf lgxhcLX5TRUsSTGbpM26 Zq4ciLuvPj3kOFIbBKA5 HGDgoQAiS9QpuV5bViWi KRSjYDBdE2VrtCZe SXhdO289JDldOuV5UNWg ffYlH4TkYTSywZavHzQ7 f9P5Gv0WO0G2XG37NR57 dVYor3B0fXO9N3Pi YEOksyvepgvogRC9AZMa IFRgzH99Jq6ncJhfVh2u SJNkJRI2APYalYQsE5Ew jN2lKwNnYOLnNTPr V0AgzCYgPVwvI693GVew EyV5AUUocyHpL1JxZKGo vRvfMoL9j7B4Ub9IYZq5 DF03SU03nNVry9H9 pFU3N1IyGMLtbtlbuctl aSG1FSMzNQIzuA70Cd7w hJdrHu6mNWUeEHN8ZEBj pRGuE1PujV7eGxXk SZJeOETzX1RsjXMnKPlw P485UFkyCcP5EUQdrbAo I0ZvAANwlDgzIhH1o2P1 Xa2TDTFiIJ16RCL1 iAR1CN73LW64Y0ErTynr dGFibGU+PHRhYmxlIHdp ZHRoPScxMDAlJyBzdHls UU1zMy3iYHUtZMQt gMallAUuEzYbx2gkCFNj FBwnEH7pbPmjC9IgzGJ8 CNWfd4b4Lw09N97fG9Cu dXA+JXMajAC4aNM0 cV2bPaOqArI8RUsqH712 ZaIctYGeAopvw9yav8kq cZz6VsA7QLGqrcGyyPet BLT2w2ThXj33O50k IHdpZHRoPSIxNSUiIHZh jCbwwz3xkZ3lGw3+PGNv pEF9jIN5kX6sFbWvYeV4 RWsuF602DnWwmWJn Chpnj9pzk2dlsDr6AvKl TNIyziGyjLxfWTC6m9Eu Oa53N3NwlPxxb3PaQkw0 lk00mTKeo5D8fTC9 Y8NtGHSkbqdqjDJreIgt JF6fYXGdhfaiFVPfiL4u QUQcF8c6FoWsYmG3JPhq J6ObcjH0LZKffSAu EPycZYH3L42rv4A2AFOh XXOfRGN1pNW0xZ5wlQae bjogbGVmdDsgdmVydGlj LDgnXXtnR514RCEm xWsfVJPopJ5mTKLqnWJk wAdeOZ5lUYHsqkvkTjUG I0VJX07IAJOAA0HOOtHx NRtMYU02N2NsHhj1 QPIjkWofIJ4haWBsVRbp Rt5ikWfkeHvlPV2fTGCy jkogDOPleN2kFXSyaIJo jGqpEI9gKBYiluqz b128OxMcMOC7OLFzuXZe M3YktS6eNcJwSEKsWEGi B5BlrPRyBQcyU617XYvn RlL7GPLsitPxW2Mb CZCrqYqnVrP3h3L5Su8l ST7iSe0iPDA1NB92NR67 kBTrc2X3mQU6D4FtRGVr zxzkwcwdwTR9OPQa KFVrdI84mPPrXMibWr4g y2L9i782MMIqOTEqhM22 Ir4vyCyfTGNapTDFbZ5l sbzjp7ivimhrUhBd DQJvVIp3JPo3REBxbKsf FoSxXVP4KhJ5FNY9lXCa lG4wiEewdqiwmR5gCqj+ LSLcDPNeltJ9H0Vv Rpa1CYEakMewAL3fpOXo TCrdWk6ciVvqpEfwEV5q UNLjeycuFWKzuU4aEDLy fHEopDooPM6uRYAu hiaru527UdHsBPI6CBUq iLLgA2JtsS4fQrVwUSHz SEAdZ5JyqBZiPEanB018 AWtnRmV1HUMjwfXt F2UjYMFuqWemKbT1t3N1 Fv9ELOhQXW26BN71zKBb e1S3gNP1E5PlNXYdtpwj sshwqWX1NUSoJDPx aB24zBIoQBgoHj2dn1X1 w759QKWqPDRlrK35Ot0n vUffHVFpvGYBcL3zvssd w8virihnZtXoOOQy GGu0BPn0CWZwkNxsItYw HKW3QoU1AIK9oGUraB9j oPidivufqR6gWon+RW1l oisawmN4BB07GA83 W6SmYzgvaKNouZV+PHRh YmxlIHdpZHRoPScxMDAl PtQkoYlmSV0hQy6aZPWu LWNvbGxhcHNlOiBj t9odBRYtSPhsTH5arXhu Y1UdaSA1OMBvd7j2Cr36 N85xL2RpvKX+PGNvbCB3 qPR6bR6uLtMyWlG3 SVxfV434ZmWfqNCkAcbo b2ayw0zufIp3DgBkPWIo hlFmiDohLPB4f6DgOl14 B09mRDipAPTnATGs RYHbRSWcuPnjiy2kmD9y Ii8+OJBetRE2fNF3wL1q KoIrGyK7WCphC162YmBs iZJgSefmD44eG4Ea dXA+JMJzEse3ORNjnFus OI1jmCLjYBshQv7eTGE4 YgDlFfBzIWqkP2VpTKUl ltetdmkooGY7SHCx YYIicY76Va1yhIjyKb4x TWTuRRA2BZTggQUhC9To zH4hZaSeODJbMNRpJ1Jv uKVlMZluD420CXsj UiV9CADbcdKoG3XwNVJe hNmcGrP6c7J1Cp0SfCbo fYCkXB3vKjZoJMq9W0Ft Ahj9IQEtrSloIT0b hEZsNLyuZa4chIqjtBab PB3kOMGzzwbmu780TrNn u9fgFZMjyAPlGVmrCGJ3 H63vs8H6NUQaBBQa LZU4xEQ1dF0lkEjwojvd bGVmdDsgdmVydGljYWwt KMmbG654ICFzmEqtSzHD Ptf2Z7GtTop2QCOk pQhxGP9jkMPqHVvtPn3p zEsliTygVU8hIEBknech v501WpDfd4jeSMEvmZSl NEwhSCB0A45bl1V6 IVDgOIBfGMG2tKO8lO4n bGlnbjogbGVmdDsgdmVy yBzcRXasPWvlY727HURq mOvmWu4UIgr0W5Re Ong5ANCxkLwwPH7mdENm LKbePi4knAhgwNrcIC2a UFRmayjiw910UvNkd4zp IDEwcHQgVGltZXM7 P56fz4I8HGHmMKGdFVH5 mYX4lR6buQauifumuBLt dDsgdmVydGljYWwtYWxp O335XJYsaLhyVyIt eWVyOjwvdGQ+TJ63yk18 M1GnUbckHbw4SDUbVDN9 qGN8kE6tXLYmHBkfh4I6 xMP5K0JimaXurv0j b2x (more content not included)... Normal [facility] ED Clinical Summaryon 2020 ED Clinical Summary [facility] - Emergency Department [address] [place] [address] [id number] ED Clinical Summary PERSON INFORMATION Name: ROSA EASTMAN Age: 55 Years Sex: MALE : 1965 MRN: Acct#: Visit Reason: Hand pain-swelling; RIGHT WRIST PAIN Arrival: 04/01/2021 19:05:43 Discharge: 04/01/2021 19:35:00 LOS: 000 00:30 Check In: 04/01/2021 19:05:43 Checkout:04/01/2021 19:35:00 Address: [address] [address] PCP: Provider, None PROVIDER INFORMATION Provider Role Assigned Unassigned Kenisha Sahni ED 04/01/2021 19:10:19 Shira RN, [facility] ED [...] Follow-Up: With: Address: When: Andrew Mckenzie DO [address] [place] [id number] Within 3 to 5 days DIAGNOSIS: 1:Sprain of right wrist Patient Understands: Yes - Patient/family/careg iver verbalizes understanding of instructions given Comment: Normal [facility] ED Patient Summaryon 021 ED Patient Summary [facility] - Emergency Department [address] [place] [address] [id number] PATIENT DISCHARGE INSTRUCTIONS Patient Information Name: ROSA EASTMAN Age: 55 Years Date of : 1965 Reason For Visit: Hand pain-swelling; RIGHT WRIST PAIN Arrival Time: 04/01/2021 19:05:43 Primary Care Physician: Provider, None Attending Physician: Medhat Hernandez MD Comment: Visit Diagnosis: Diagnoses This Visit Hand pain-swelling ([id number]) Sprain of right wrist (S63.501A) Prescription Information: If you have been given a prescription for narcotics, seek immediate medical attention if you have any difficulty breathing or any sudden status changes such as confusion and sleepiness. If you or anyone you know is experiencing suicidal thoughts, mental health, alcohol and/or drug addiction problems; contact the [facility] 02/06 Crisis Hotline -Text 4HSFH xx 213161. If you received any narcotics, sedation, or [...] With: Address: When: Andrew Mckenzie DO [address] [place] [address] [place] [address] Within 3 to 5 days Medication Information: The exam and treatment you received today in the [facility] Emergency Department were for an urgent problem and are not intended as complete care. It is important for you to follow up with a doctor, nurse practitioner, or physician?s medical library assistant for ongoing care. If your symptoms [...] so we can reach you if necessary. [facility] Emergency Department has provided you with a complete list of medications post discharge. Please inform your buff wheel fabricator/provider of your visit and for further instruction on these medications. Any specific questions regarding your chronic medications and dosages should be discussed with your primary care physician(s) and/or pharmacist. Medications to Continue That Have Not Changed Other Medications acetaminophen-hydroc odone (hydrocodone-acetami nophen 5 mg-325 mg ([place] 5)) 1 tab(s) Oral Every 6 hours [...] With poor (more content not included)... Normal [facility] Vital Signs Date Time Vital Sign Value Performing Clinician Facility 06-09-2025 11:45-0400 Diastolic blood pressure 78 mm[Hg] Britt Rumschlag DO Work Phone: [facility] 06-09-2025 11:45-0400 Heart rate 71 /min Britt Rumschlag DO Work Phone: [facility] 06-09-2025 11:45-0400 Systolic blood pressure 146 mm[Hg] Britt Rumschlag DO Work Phone: [facility] 03-23-2025 13:13-0400 Body height 172.7 cm Charmaine PUENTES Work Phone: [facility] 03-23-2025 13:13-0400 Body mass index (BMI) [Ratio] 31.02 kg/m2 Charmaine Lowe PA Work Phone: [facility] 03-23-2025 13:13-0400 Body weight 92.53 kg Charmaine Lowe PA Work Phone: [facility] 03-23-2025 13:13-0400 Diastolic blood pressure 86 mm[Hg] Charmaine Lowe PA Work Phone: [facility] 03-23-2025 13:13-0400 Systolic blood pressure 130 mm[Hg] Charmaine Lowe PA Work Phone: [facility] 12-28-2024 13:00-0500 Body height 172.7 cm Charmaine Lowe PA Work Phone: [facility] 12-28-2024 13:00-0500 Body mass index (BMI) [Ratio] 30.87 kg/m2 Charmaine Lowe PA Work Phone: [facility] 12-28-2024 13:00-0500 Body weight 92.08 kg Charmaine Lowe PA Work Phone: [facility] 12-28-2024 13:00-0500 Diastolic blood pressure 78 mm[Hg] Charmaine Lowe PA Work Phone: [facility] 12-28-2024 13:00-0500 Systolic blood pressure 132 mm[Hg] Charmaine Lowe PA Work Phone: [facility] 12-14-2024 14:15-0500 Body height 172.7 cm Hilario Small MD Work Phone: [facility] 12-14-2024 14:15-0500 Body mass index (BMI) [Ratio] 31.02 kg/m2 Hilario Small MD Work Phone: [facility] 12-14-2024 14:15-0500 Body weight 92.53 kg Hilario Small MD Work Phone: [facility] 12-14-2024 14:15-0500 Diastolic blood pressure 78 mm[Hg] Hilario Small MD Work Phone: [facility] 12-14-2024 14:15-0500 Heart rate 91 /min Hilario Small MD Work Phone: [facility] 12-14-2024 14:15-0500 Systolic blood pressure 136 mm[Hg] Hilario Small MD Work Phone: [facility] 09-06-2024 13:16-0400 Body height 172.7 cm Candida Sidhu PA Work Phone: [facility] 09-06-2024 13:16-0400 Body mass index (BMI) [Ratio] 32.54 kg/m2 Candida Hill PA Work Phone: [facility] 09-06-2024 13:16-0400 Body weight 97.07 kg Candidayousuf Sidhu PA Work Phone: [facility] 09-06-2024 13:16-0400 Diastolic blood pressure 80 mm[Hg] Candida Sidhu PA Work Phone: [facility] 09-06-2024 13:16-0400 Heart rate 59 /min Cnadida Hill PA Work Phone: [facility] 09-06-2024 13:16-0400 Respiratory rate 16 /min Candida Sidhu PA Work Phone: [facility] 09-06-2024 13:16-0400 SaO2% (BldA) [Mass fraction] 99 % Candida Hill PA Work Phone: [facility] 09-06-2024 13:16-0400 Systolic blood pressure 120 mm[Hg] Candida Sidhu PA Work Phone: [facility] 12-09-2023 15:33-0500 Body height 172.7 cm Hilario Small MD Work Phone: [facility] 12-09-2023 15:33-0500 Body mass index (BMI) [Ratio] 31.02 kg/m2 Hilario Small MD Work Phone: [facility] 12-09-2023 15:33-0500 Body weight 92.53 kg Hilario Small MD Work Phone: [facility] 12-09-2023 15:33-0500 Diastolic blood pressure 78 mm[Hg] Hilario Small MD Work Phone: [facility] 12-09-2023 15:33-0500 Heart rate 79 /min Hilario Small MD Work Phone: [facility] 12-09-2023 15:33-0500 Systolic blood pressure 130 mm[Hg] Hilario Small MD Work Phone: [facility] 02-20-2023 14:00-0400 Body height 172.72 cm Josué Evangelista Other [employer] Other 02-20-2023 14:00-0400 Body mass index (BMI) [Ratio] 32.08 kg/m2 Josué Evangelista Other [employer] Other 02-20-2023 14:00-0400 Body weight 95.71 kg Josué Evangelista Other [employer] Other 02-20-2023 14:00-0400 Diastolic blood pressure 80 mm[Hg] Josué Evangelista Other [employer] Other 02-20-2023 14:00-0400 Systolic blood pressure 130 mm[Hg] Josué Evangelista Other [employer] Other 01-22-2023 09:40-0400 Diastolic blood pressure 84 mm[Hg] DO Britt Rumschlag Work Phone: [facility] 01-22-2023 09:40-0400 Heart rate 70 /min DO Britt Rumschlag Work Phone: [facility] 01-22-2023 09:40-0400 Respiratory rate 16 /min DO Britt Rumschlag Work Phone: [facility] 01-22-2023 09:40-0400 SaO2% (BldA) [Mass fraction] 96 % DO Britt Rumschlag Work Phone: [facility] 01-22-2023 09:40-0400 Systolic blood pressure 136 mm[Hg] DO Britt Rumschlag Work Phone: [facility] 01-22-2023 08:47-0400 Body temperature 98 [degF] DO Britt Rumschlag Work Phone: [facility] 01-22-2023 08:12-0400 Inhaled oxygen flow rate 10 L/min DO Britt Rumschlag Work Phone: [facility] 01-22-2023 07:35-0400 Body height 172.72 cm DO Britt Rumschlag Work Phone: [facility] 01-22-2023 07:35-0400 Body mass index (BMI) [Ratio] 32.4 kg/m2 DO Britt Rumschlag Work Phone: [facility] 01-22-2023 07:35-0400 Body weight 96.8 kg DO Britt Rumschlag Work Phone: [facility] 03-13-2022 11:45-0400 Body height 172.72 cm Harvey Holt Other [employer] Other 03-13-2022 11:45-0400 Body mass index (BMI) [Ratio] 32.23 kg/m2 Harvey Holt Other [employer] Other 03-13-2022 11:45-0400 Body weight 96.16 kg Harvey Holt Other [employer] Other 01-14-2022 14:30-0500 Body height 172.72 cm Harvey Holt Other [employer] Other 01-14-2022 14:30-0500 Body mass index (BMI) [Ratio] 32.23 kg/m2 Harvey Holt Other [employer] Other 01-14-2022 14:30-0500 Body weight 96.16 kg Harvey Holt Other [employer] Other 09-19-2021 11:00-0500 Body height 172.72 cm Harvey Stoddardtru Other [employer] Other 09-19-2021 11:00-0500 Body mass index (BMI) [Ratio] 32.23 kg/m2 Harvey Holt Other [employer] Other 09-19-2021 11:00-0500 Body weight 96.16 kg Harvey Holt Other [employer] Other 09-19-2021 11:00-0500 Diastolic blood pressure 87 mm[Hg] Harvey Holt Other [employer] Other 09-19-2021 11:00-0500 Systolic blood pressure 130 mm[Hg] Harvey Salcidocamilo Other [employer] Other Encounters Encounter Date Encounter Type Care Provider Facility Start: 06-09-2025 End: 06-09-2025 ambulatory Britt Rummassiellag DO Work Phone: [facility] Work Phone: Start: 06-09-2025 End: 06-09-2025 Patient encounter procedure Charmaine Alex [facility] Work Phone: Start: 05-02-2025 End: 05-02-2025 ambulatory Richard Lezama MD Facility: [facility] Start: 04-18-2025 End: 04-18-2025 ambulatory Richard Lezama MD Facility:[facility] Start: 03-23-2025 End: 03-23-2025 Bamboo flowsheet Charmaine Lowe PA Work Phone: [facility] Start: 03-23-2025 End: 03-23-2025 Bamboo flowsheet Charmaine [...] 02-28-2025 End: 02-28-2025 ambulatory Richard Le[facility] MD [facility] Start: 02-01-2025 End: 02-01-2025 ambulatory CHARMAINE LOWE Not Available Start: 01-31-2025 End: 01-31-2025 ambulatory Richard Lezama MD [facility] Start: 01-25-2025 End: 01-25-2025 ambulatory MANI CARPENTER Not Available Start: 12-28-2024 End: 12-28-2024 Bamboo flowsheet Charmaine Lowe PA Work Phone: [facility] Start: 12-28-2024 End: 12-28-2024 Bamboo flowsheet Charmaine Lowe PA Work Phone: [facility] Start: 12-28-2024 End: 12-28-2024 Office outpatient visit [...] Start: 12-09-2024 End: 12-09-2024 Telephone encounter Teresa Kelly HEAD [facility] Start: 09-13-2024 End: 09-13-2024 ambulatory Richard Lezama MD [facility] Start: 09-06-2024 End: 09-06-2024 BamMacroSolvelazara [email or web address] Candida PUENTES Work Phone: [facility] [employer] [address] Start: 09-06-2024 End: 09-06-2024 BamMobilingaheet Candida PUENTES Work Phone: [facility] [employer] [address] Start: 09-06-2024 End: 09-06-2024 Office outpatient visit 15 minutes Candida PUENTES Work Phone: [facility] [employer] [facility] Comment on above: Balance problems (Pr imary Dx); Hyper reflexia; Lightheadedness; Lumbar back pain; GIRMA (obstructive sleep apnea); Memory change Start: 09-06-2024 End: 09-06-2024 ambulatory CANDIDA SIDHU Not Available Start: 08-23-2024 End: 08-23-2024 ambulatory Richard Lezama MD Facility:[facility] Start: 06-28-2024 End: 06-28-2024 ambulatory Richard Lezama MD Facility: [facility] Start: 04-22-2024 End: 04-22-2024 ambulatory CANDIDA SIDHU Not Available Start: 12-09-2023 End: 12-09-2023 Office outpatient visit 15 minutes Hilario Small MD Work Phone: [facility] Comment on above: Benign localized pro static hyperplasia with lower urinary tract symptoms (LUTS) (Primary Dx) Start: 10-15-2023 End: 10-15-2023 ambulatory CANDIS N DEXTER [facility] Start: 10-14-2023 End: 10-15-2023 ambulatory BRITT RUMSCHLAG [facility] Start: 03-04-2023 End: 03-05-[address] DOCTOR GARCIA Facility:[facility] Start: 02-28-2023 End: 02-28-2023 ambulatory Josué Evangelista Other [facility] Other Start: 02-28-2023 Telephone encounter Josué Evangelista [facility] Start: 02-20-2023 End: 02-20-2023 ambulatory Josué Evangelista Other [facility] Other Start: 02-20-2023 Postop follow up vis it related to original px Josué Evangelista [facility] Start: 01-22-2023 End: 01-22-2023 Admission to same day surgery center DO Britt Rumschlag Work Phone: [facility] [address] [place] Start: 01-22-2023 End: 01-22-2023 ambulatory Josué Evangelista Facility:[facility] Start: 01-22-2023 End: 01-22-2023 ambulatory DO Britt Rumschlag Work Phone: [facility] Work Phone: Start: 01-13-2023 End: 01-13-2023 ambulatory Josué Evangelista Facility:[facility] Start: 01-13-2023 End: 01-13-2023 ambulatory DO Britt Rumschlag Work Phone: [facility] Work Phone: Start: 01-13-2023 End: 01-13-2023 Patient encounter procedure DO Britt Rumschlag Work Phone: [facility] Work Phone: Start: 12-06-2022 End: 12-06-2022 ambulatory Josué Evangelista Facility:[facility] Start: 12-06-2022 End: 12-06-2022 Patient encounter procedure DO Britt Goodman Work Phone: [facility] [place] Work Phone: Start: 08-10-2022 End: 08-10-2022 ambulatory [facility] Facility: Start: 07-08-2022 End: 07-08-2022 ambulatory Candida Sidhu Facility:[facility] Start: 07-08-2022 End: 07-08-2022 Patient encounter procedure [facility] [address] Start: 06-21-2022 End: 06-21-2022 ambulatory Candida Jono Sidhu Facility:[facility] Start: 06-21-2022 End: 06-21-2022 Patient encounter procedure [facility] [address] [place] Start: 03-13-2022 End: 03-13-2022 ambulatory Harvey Holt Other [employer] [facility] Other Start: 03-13-2022 Office outpatient vi sit 15 minutes Harvey Holt [facility] Start: 01-14-2022 End: 01-14-2022 ambulatory Harvey Holt Other [employer] [facility] Other Start: 01-14-2022 Office outpatient vi sit 15 minutes Harvey Holt [facility] Start: 10-16-2021 [facility] Harvey Holt [facility] Start: 10-16-2021 End: 10-16-2021 ambulatory Harvey Holt Other [employer] Other Start: 09-19-2021 End: 09-19-2021 ambulatory Harvey Holt Other [employer] Other Start: 09-19-2021 Office outpatient ne w 45 minutes Harvey Holt [facility] Procedures Date Procedure Procedure [...] Influenza vaccination Influenz a Vaccine (Season Ended) [facility] Start: 06-09-2025 End: 06-09-2025 Patient encounter procedure 06/09/2025 11:20 AM EDT Office Visit SAMANTHA ELLIOTT [address] [place] [phone] Charmaine Ackerman NP [address] [place], [place] SAMANTHA CARBAJALUE Start: 03-23-2025 End: 03-23-2025 Patient encounter procedure 03/23/2025 1:00 PM EDT Office Visit SAMANTHA ELLIOTT [address] [place] [phone] Charmaine Castro PA [address] [place] [address] Arrived SAMANTHA ELLIOTT Comment on above: Arrived Start: 02-01-2025 End: 02-01-2025 Patient encounter procedure 02/01/2025 12:40 PM EDT Office Visit SAMANTHA ELLIOTT [address] [place] [address] Charmaine Castro PA [address] [place] [address] SAMANTHA CARBAJALUE Start: 01-25-2025 End: 01-25-2025 Patient encounter procedure 01/25/2025 11:00 AM EDT Procedure Visit SAMANTHA ELLIOTT [address] [place] [phone] Mani Carpenter MD [address] [place] [address] SAMANTHA ELLIOTT Start: 12-28-2024 End: 12-28-2025 EMG 2 Extremities EMG 2 Extremities Neurology Routine Radiculopathy, cervical region Expected: 12/28/2024 (Approximate), Expires: 12/28/2025 [facility] Work Phone: Comment on above: Expected: 12/28/2024 (Approximate), Expires: 12/28/2025 Start: 12-28-2024 End: 12-28-2024 Patient encounter procedure [facility] [place] [address] Comment on above: Arrived Start: 12-14-2024 End: 12-14-2024 Patient encounter procedure 12/14/2024 2:15 PM EST Office Visit [facility] [address] [place] [phone] Hilario Small MD [address] [place] [address] [facility] Start: 12-09-2024 Adult BMI Screening Adult BMI Screen [facility] Start: 12-09-2024 Tobacco Screening Tobacco Screening [facility] Start: 12-08-2024 End: 11-08-2025 Prostatic specific antigen, diagnostic Prostatic specific antigen, diagnostic Lab Routine Benign localized prostatic hyperplasia with lower urinary tract symptoms (LUTS) Expected: 12/08/2024 (Approximate), Expires: 11/08/2025 [facility] Work Phone: Comment on above: Expected: 12/08/2024 (Approximate), Expires: 11/08/2025 Start: 09-06-2024 End: 09-06-2024 Patient encounter procedure 09/06/2024 1:20 PM EDT Office Visit [facility] [address] [place] [phone] Candida Sidhu PA [address] [place] [address] [facility] Comment on above: Arrived Start: 07-11-2024 COVID-19 Vaccine ( season) COVID-19 Vaccine ( season) [facility] Start: 07-11-2024 Influenza [facility] Start: 03-10-2024 Tobacco Counseling Tobacco Counselin g [facility] Start: 07-11-2023 COVID-19 Vaccine ( season) COVID-19 Vaccine ( season) [facility] Start: 07-11-2023 Influenza vaccination Influenza Vacc ine [facility] Start: 01-22-2023 End: 01-22-2023 [facility] Start: 07-08-2022 MRI of head MR head/brain wo con [facility] Start: 07-08-2022 End: 07-08-2022 Patient encounter procedure Departed Clinical [facility] [address] Start: 2017 Administration of varicella zoster vaccine Zoster (Shingles) Vaccine (1 of 2) [facility] Start: 1986 DTaP,Tdap and Td Vac cines (1 - Tdap) DTaP,Tdap and Td Vaccines (1 - Tdap) [facility] Start: 1985 Adult BMI Follow Up Plan Adult BMI Follow Up Plan [facility] Start: 1979 Depression Screening Depression Scre ening [facility] Start: 1967 Screening for malign ant neoplasm of colon [facility] Start: 1967 Tobacco Counseling Tobacco Counselin g [facility] Patient referral [facility] Work Phone: Immunizations Immunization Date Immunization Notes Care Provider Fa cility 03-07-2021 COVID-19 mRNA, Comirnaty (Pfizer) [facility] 02-14-2021 COVID-19 mRNA, Comirnaty (Pfizer) [facility] 12-08-2020 influenza virus vaccine, unspecified formulation Candida PUENTES Work Phone: [facility] Healthcare Payers Date Payer Category Payer Unknown 2022 Medicaid [id number] 2022 Medicaid [id number] 2022 Self-pay [id number] 1965 Unknown [id number] 2.16.84 0.1.669153.3.579.2.593 1967 Unknown [id number] 2.16.84 0.1.891830.3.579.2.593 1967 Unknown [id number] 2.16.8 40.1.262614.3.579.2.173 1967 Unknown [id number] 2.16.8 40.1.385942.3.579.2.173 1967 Unknown [id number] 2.16.8 40.1.988245.3.579.2.173 1967 Unknown [id number] 2.16.84 0.1.518407.3.579.2.1259 1967 Unknown [id number] 2.16.84 0.1.024553.3.579.2.1259 1967 Unknown [id number] 2.16.84 0.1.035384.3.579.2.1259 1967 Unknown [id number] 2.16.84 0.1.208540.3.579.2.1259 1967 Unknown [id number] 2.16.84 0.1.125675.3.579.2.1259 1967 Unknown [id number] 2.16.84 0.1.840209.3.579.2.1259 1967 Unknown [id number] 2.16. 840.1.094799.3.579.2.196 1967 Unknown [id number] 2.16. 840.1.847421.3.579.2.196 1967 Unknown [id number] 2.16. 840.1.548435.3.579.2.196 1967 Unknown [id number] 2.16. 840.1.779954.3.579.2.196 1967 Unknown [id number] 2.16. 840.1.631546.3.579.2.196 1967 Unknown [id number] 2.16. 840.1.617256.3.579.2.196 1967 Unknown [id number] 2.16. 840.1.136061.3.579.2.196 1959 Unknown [id number] 2.1 6.840.1.798816.19 Unknown [id number] 2.1 6.840.1.965868.19 Unknown [id number] 2.16.8 40.1.483126.3.579.2.531 Unknown [id number] 2.16.8 40.1.470802.3.579.2.531 Unknown [id number] 2.16.8 40.1.524038.3.579.2.531 Unknown [id number] 2.16.8 40.1.932888.3.579.2.531 Unknown [id number] 2.16.8 40.1.900870.3.579.2.531 Social History Date Type Detail Facility Start: 04-23-2024 End: 02-01-2025 Sex Assigned At [facility] [employer] Other Start: 10-16-2021 End: 01-22-2023 Tobacco smoking status WIIS Smoker (finding) [facility] Start: 1965 Sex Assigned At Male [facility] Start: 01-22-2023 End: 04-23-2024 Tobacco smoking status WIIS Smokes tobacco daily [facility] History of tobacco use Cigarette Smoker [facility] Start: 04-23-2024 Tobacco use and exposure User of smokeless tobacco [facility] Start: 04-23-2024 End: 02-01-2025 Alcoholic beverage intake Current drinker of alcohol (finding) [facility] Start: 04-23-2024 End: 02-01-2025 History of Social function [facility] How often to you hav e a drink containing alcohol? Monthly or less [facility] How many standard drinks containing alcohol do you have on a typical day? 1 or 2 [facility] How often do you hav e 6 or more drinks on 1 occasion? Less than monthly [facility] Start: 1965 Sex assigned at Not on file P [facility] Start: 09-10-2022 Tobacco use and exposure Smokeless tobacco non-user [facility] Childcare Unknown [facility] Start: 05-03-2021 Alcohol Comment OCCASIONAL [facility] Start: 07-12-2015 Sex Male (finding) [facility] Medical Equipment Procedure Code Equipment Code Equipment Origin al Text Equipment Identifier Dates BONE 7MM DUO FORTITUDE SERIES FDA Start: 10-16-2021 Spinal fixation plate, non-bioabsorbable ()[id number] FDA Start: 10-16-2021 Bone-screw inter nal spinal fixation system, non-sterile ()[id number] FDA Start: 10-16-2021 Bone-screw inter nal spinal fixation system, non-sterile ()[id number] FDA Start: 10-16-2021 BONE 7MM DUO FORTITUDE SERIES FDA Start: 10-16-2021 BONE 7MM DUO FORTITUDE SERIES FDA Start: 10-16-2021 BONE 7MM DUO FORTITUDE SERIES FDA Start: 10-16-2021 BONE 7MM DUO FORTITUDE SERIES FDA Start: 10-16-2021 Goals Date Patient Goal Desired Activity /State Clinical Notes 04-01-2021 to 03-23-2025 DELORIS Betancur - 03/23/2025 1:00 PM Des Small MD - 12/14/2024 2:15 PM ESTTelephone [...] Review Audit Reviewed by Stef Berg MA (Batch Plant Supervisor) on 03/23/25 at 1314 Medication Order Taking? Sig Documenting Provider Last Dose Status cyclobenzaprine (Flexeril) 5 MG tablet [id number] Yes TAKE 2 TABLETS BY MOUTH AT BEDTIME DELORIS Betancur Active gabapentin (Neurontin) 100 MG capsule [id number] Yes Take 100 mg by mouth in the morning and 100 mg before bedtime. Historical ProviderMD Active latanoprost (Xalatan) 0.005 % ophthalmic solution [id number] Yes Administer 1 drop into both eyes at bedtime DELORIS Steele Active meclizine (Antivert) 25 MG tablet [id number] Yes Take 25 mg by mouth as needed in the morning and 25 mg as needed at noon and 25 mg as needed in the evening for dizziness. DELORIS Steele Active omeprazole (PriLOSEC) [address] capsule [id number] Yes Take 40 mg by mouth in the morning. Take before meals. Do not crush or chew. Historical ProviderMD Active rosuvastatin (Crestor) 10 MG tablet [id number] Yes Take 10 mg by mouth Daily [...] triceps, wrist extensors, wrist extensors, wrist flexor, technology infusion specialist strength 5/5. LUE Strength deltoid, biceps, triceps, wrist extensors, wrist extensors, wrist flexor, technology infusion specialist strength 5/5. RLE Strength illopsoas, quadriceps, [...] in 2-3 months documented in this encounter [facility] 12-14-2024 History of Presen t illness Narrative Images from the original note were not included. [address] [place] [address] A [facility] [address] Patient: Rosa Eastman Date of : 1965 [...] 05/03/2021 Performed by Carlos Olmos MD at [facility] SURGERY TONSILLECTOMY ULNAR NERVE [...] for your understanding. [facility] Miscellaneous Notes Contacted the Pt. To remind him to get his PSA drawn before his appt on Friday with MD Drew. No further questions at this time. [facility] 12-09-2024 Telephone encounter Note Contacted the Pt. To remind him to get his PSA drawn before his appt on Friday with MD Drew. No further questions at this time. [facility] 09-06-2024 History [...] Review Audit Reviewed by Sophy Hays MA (Batch Plant Supervisor) on 09/06/24 at 1323 Medication Order Taking? Sig Documenting Provider Last Dose Status cyclobenzaprine (Flexeril) 5 MG tablet [id number] Take 2 tablets (10 mg) by mouth at bedtime DELORIS Steele 09/01/24 2359 gabapentin (Neurontin) 100 MG capsule [id number] Take 100 mg by mouth in the morning and 100 mg before bedtime. Historical Provider, Active latanoprost (Xalatan) 0.005 % ophthalmic solution [id number] Administer 1 drop into both eyes at bedtime DELORIS Steele Active meclizine (Antivert) 25 MG tablet [id number] Take 25 mg by mouth 3 (three) times a day as needed for dizziness DELORIS Steele Active omeprazole (PriLOSEC) [address] capsule [id number] Take 40 mg by mouth in the morning. Take before meals. Do not crush or chew.. Historical Provider, Active rosuvastatin (Crestor) 10 MG tablet [id number] Take 10 mg by mouth Daily Historical Provider, Active HPI Dizziness -on Meclizine PRN -has [...] -admits weakness in hand and trouble with technology infusion specialist -finds himself dropping things -balance is [...] to person, place and time. Memory: MOCA . Speech is normal. Language is fluent with [...] triceps, wrist extensors, wrist extensors, wrist flexor, technology infusion specialist strength 5/5. LUE Strength deltoid, biceps, triceps, wrist extensors, wrist extensors, wrist flexor, technology infusion specialist strength 5/5. RLE Strength illopsoas, quadriceps, [...] EMG pending course documented in this encounter [facility] 12-09-2023 History of Presen t illness Narrative Images from the original note were not included. [address] [place] [address] A [facility] [address] Patient: Rosa Eastman Date of : 1965 [...] 05/03/2021 Performed by Carlos Olmos MD at [facility]ERY TONSILLECTOMY ULNAR NERVE REPAIR [...] for your understanding. 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 I will see him on an as-needed basis I think he has had a good outcome overall. [employer] Other 05-04-2022 Evaluation note* Encounter Date Diagnosis [...] Cervical spondylosis with myelopathy (ICD-10 - M47.12) [employer] Other 03-29-2022 NoteEducation Materials Neurology Paresthesia Paresthesia [...] or sweet foods. General instructions ? Take wacq-igd-itseete and prescription medicines only as told by [...] provider. Document Revised: 11/22/2019 Document Reviewed: 11/05/2018 [employer] Patient Education ? 2020 [employer] Cubital Tunnel Syndrome Cubital tunnel syndrome [...] ? Playing contact sports, (more content not included)...[facility] 01-14-2022 Evaluation note* Encounter Date [...] will see him on an as-needed basis. [employer] Other 11-10-2021 Evaluation note* Encounter Date Diagnosis [...] They understand and would like to proceed [employer] Other 09-27-2021 Note [id number]05-23-2021 NoteEducation Materials Orthopedics Wrist Sprain, [...] health care provider. General instructions ? Take xafh-mur-tppyalt and prescription medicines only as told by [...] provider. Document Revised: 10/09/2018 Document Reviewed: 05/15/2017 [employer] Patient Education ? 2020 [employer] Wrist and Forearm Exercises Ask your health care provider which exercises are safe for you. Do exercises exactly as told by your health care provider and adjust them as directed. It is normal to feel mild stretching, pulling, tightness, or discomfort as you do these exercises. Stop right away if you feel sudden pain or your (more content not included)...[facility] noteNo InformationNort [employer] Other evaluation noteNo assessment information available [facility] Work Phone: Evaluation note* Diagnosis Balance problems- Primary Abnormality of gait Hyper reflexia Abnormal reflex Lightheadedness Dizziness and giddiness Lumbar back pain Lumbago GIRMA (obstructive sleep apnea) Obstructive sleep apnea (adult) (pediatric) Memory change Memory loss documented in this encounter [facility] Healthcare[facility] note* Diagnosis Benign localized prostatic hyperplasia with lower urinary tract symptoms (LUTS)- Primary Benign localized prostatic hyperplasia with lower urinary tract symptoms (LUTS)- Primary documented [facility]* Diagnosis Benign localized prostatic hyperplasia with lower urinary tract symptoms (LUTS)- Primary documented in this encounter [facility] System[facility] note* Diagnosis Radiculopathy, cervical region- Primary Brachial neuritis or radiculitis nos Memory change Memory loss GIRMA (obstructive sleep apnea) Obstructive sleep apnea (adult) (pediatric) Balance problems Abnormality of gait documented in this encounter [facility] Healthcare[facility] note* Diagnosis Lumbosacral radiculopathy- Primary Thoracic or lumbosacral neuritis or radiculitis, unspecified Ulnar neuropathy at elbow of right upper extremity Balance problems Abnormality of gait Memory change Memory loss GIRMA (obstructive sleep apnea) Obstructive sleep apnea (adult) (pediatric) documented in this encounter [facility] HealthcareHistory general Narrative - Reported* Type Description Date Surgical History (R) carpal tunnel release Surgical History (R) Ulnar nerve release Surgical History tonsillectomy Hospitalization History See Above [employer] Other Hospital Discharge instructions Additional Instructions Use [...] Any unusual redness or drainage contact the [facility] Work Phone: InstructionsNot on filedocumented in this encounter [facility] [employer] SystemInstructionsNot on filedocumented in this encounter [facility] SystemInstructions* Attachments The following attachments cannot be sent through Care Everywhere. * Benign prostatic hyperplasia (enlarged prostate) (Omani) [facility] SystemReason for referral (narrative)No reason for referral [facility] Work Phone: Summary Purpose Family History No [...] mellitus Unknown brother Borderline diabetes mellitus Unknown Relationship Condition Age at Onset Recorded Date/T fabio mother Heart failure Unknown Chronic obstructive pulmonary disease [...] wrist (G56.21) Referral Organization [facility] urosurgery Referring Provider First Name Harvey Referring Provider Last Name Yanet Referring Provider Specialty Neurosurger y Referred Organization [facility] Referred Provider Mani Carpenter Referred Address [address],[place], [place],[address] Referred Provider Specialty Neurology Referral Priority Routine Chief Complaint and Reason for Visit Chief Complaint labs r41.3 Chief Complaint m47.12 entrapment ulnar nerve Chief Complaint m47.12 entrapment ulnar nerve entrapment ulnar nerve Chief Complaint Admit Date 2 Month Follow up *MEGAN SB TO ND May 11:13am Additional Source Comments (unrecognized sect ion and content) No Status Records FoundNo Status Records FoundNo Status Records FoundNo Status Records FoundNo Status Records FoundNo Status Records Found INFORMATION SOURCE (unrecogn ized section and content) DATE CREATED AUTHOR 02/16/2022 [facility] DATE CREATED AUTHOR AUTHOR'S ORGANIZ ATION 01/23/2023 [facility] DATE CREATED AUTHOR AUTHOR'S ORGANIZ ATION 03/08/2023 [facility] [place] [facility] DATE CREATED AUTHOR AUTHOR'S ORGANIZ ATION 10/18/2023 [facility] DATE CREATED AUTHOR AUTHOR'S ORGANIZ ATION 03/24/2025 [facility] EPIC DATE CREATED AUTHOR AUTHOR'S ORGANIZ ATION 06/11/2025 [facility] REASON FOR VISIT (unrecogniz ed section and [...] Active Josué Evangelista MD Attending Provider Active Python Programmer Relationship Specialty Start Date End Date Britt Goodman DO [address] [place] [address] PCP - General Family Medicine 11/10/23 Mani Carpenter MD [address] [place] [address] Referring Physician Neurology 11/10/23 Python Programmer Relationship Specialty Start Date End Date Britt Goodman DO [address] [place] [address] PCP - General Family Medicine 11/10/23 Mani Carpenter MD [address] [place] [address] Referring Physician Neurology 11/10/23 Python Programmer Relationship Specialty Start Date End Date [facility] [address] [place] PCP - General Family Medicine 05/03/21 Python Programmer Relationship Specialty Start Date End Date [facility] [address] [place] PCP - General Family Medicine 05/03/21 Python Programmer Relationship Specialty Start Date End Date [facility] [address] [place] PCP - General Family Medicine 05/03/21 Python Programmer Relationship Specialty Start Date End Date Britt Goodman DO [address] [place] [address] PCP - General Family Medicine 11/10/23 Mani Carpenter MD [address] [place], [place] [address] Referring Physician Neurology 11/10/23 Python Programmer Relationship Specialty Start Date End Date Britt Goodman DO [address] [place] [address] PCP - General Family Medicine 11/10/23 Mani Carpenter MD [address] [place], [place] [id number] Referring Physician Neurology 11/10/23 Python Programmer Relationship Specialty Start Date End Date Britt Goodman DO [address] [place] [address] PCP - General Family Medicine 11/10/23 Mani Carpenter MD [address] [place] [address] Referring Physician Neurology 11/10/23 Charmaine Castro PA [address] [place], [place] [address] Physician [facility] Physician Neurology 02/01/25 Python Programmer Relationship Specialty Start Date End Date Britt Goodman DO [address] [place] [address] PCP - General Family Medicine 11/10/23 Mani Carpenter MD [address] [place] [address] Referring Physician Neurology 11/10/23 Charmaine Castro PA [address] [place] [address] Physician [facility] Physician Neurology 02/01/25 Team Status: Inactive Member Role Status Dates Britt Goodman DO Primary Care Provider Active Start: June 09, 2025 End: June 09, 2025 Charmaine Ackerman APRN Attending Provider Active Start: June 09, 2025 End: June 09, 2025 Goals (unrecognized section and content) Goals may [...] BE BASED ON THE PRIMARY CLINICAL RECORDS. [facility]. provides no warranty or guarantee of the accuracy or completeness of information in this document.
[2025-08-29 09:29] VITALS: BP 127/71; PULSE 85; TEMP 36.6; O2SAT 95
[2025-08-29 10:15] VITALS: PULSE 78; O2SAT 94
[2025-08-29 10:16] VITALS: BP 141/84; BP 145/86; PULSE 76; O2SAT 96
[2025-08-29] MEDS: BUPIVACAINE HCL 0.25% PF 25 MG/10 ML VIAL 4 ML INJ (10:17)
[2025-08-29] MEDS: METHYLPREDNISOLONE ACETATE 40 MG/ML VIAL 80 MG INJ (10:17)
[2025-08-29] MEDS: LIDOCAINE HCL 2% 400 MG/20 ML MDV 16 ML INJ (10:17)
--- NOTE | 2025-08-29 10:30 | P.ON_ITS ---
Date of procedure: 08/29/25 Pre-op diagnosis: Pain due to lumbar spondylosis without myelopathy Post-op diagnosis: same as pre-op Procedure: Procedure: Bilateral L4-5, L5-S1 radiofrequency ablation Medications: Bupivacaine 0.25% 4cc, depomedrol 80mg, lidocaine 2% 6cc The patient was seen and examined in the preoperative holding area.? The site was marked.? Written informed consent was obtained and placed on the chart.? The patient was brought to the medical procedure unit and placed in the prone position.? A timeout was completed verifying correct patient, procedure, positioning, and special requirements.? The skin overlying the target points, the designated medial branch, were prepped and draped in the usual sterile fashion.? The target point was achieved with a 20-gauge 15 cm with a 10 mm curved active tip radiofrequency cannula under direct fluoroscopic visualizati on.? The needle was inserted at level L4 on the right side. Needle tip position was confirmed with lateral fluoroscopic position.? Motor stimulation was carried out at 2 Hz up to 5 volts with the absence of extremity activity.? This was repeated at level l5, S1 on right side.?? Sensory stimulation was carried out.? Concordant pain was realized at the above- mentioned sites.? Then radiofrequency lesioning was carried out times 90 seconds at 80 degrees times 2 lesions at each level.? The radiofrequency probe was removed prior to cannula removal.? The above-mentioned injectate was placed in 1 mL increments.? The needle was removed. The same procedure, with the same steps, was then completed on the left side at the same levels. Insertion sites were covered.? The patient was taken to the postoperative recovery area and monitored for an appropriate length of time before being found suitable for discharge in the company of a responsible adult. Anesthesia: Local Surgeon: Richard Lezama Pathology: none sent Condition: stable Disposition: no change
== END 2025-08-29 10:32 | disposition home or self-care (01) ==
PROVIDERS: Visit Provider Anesthesiology
DX: M47.816 Spondylosis without myelopathy or radiculopathy, lumbar region (principal); M54.50 Low back pain, unspecified
CPT/HCPCS: 64635; 64636; J0665; J1010

== ENCOUNTER 2025-10-05 07:36 | Outpatient (OUT) | payer MEDICARE, MEDICAID, SELFPAY ==
--- OUTSIDE RECORDS SUMMARY | 2024-06-24 04:45 | XMS_ITS ---
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 Name Role Phone Kenisha Baxter Primary Care Provider Татьяна Reilly REASON FOR VISIT 3 m neuropathy, hyperlipidemia Social History Sex Assigned At : Social History Observation Description Sex Assigned At Male Encounters Encounter Location Date Provider Diagnosis Main [address] [place], [place] [id number] 06/24/2024 Татьяна Reilly Plan Of Treatment Next Appt Details Provider Name:Kenisha chung, 01/16/2026 01:15:00 PM, [address] [place], [place], [phone], Progress Notes * Homer EASTMANDOB:[birth year] (60 yo M)Acc No.[id number]:06/24/2024 Medical Note Patient: Daniel tejinderHomer tellez :?Татьяна Benoit, MSN, BONE WORKER, YOUTH WORKER-CDOB: 1965???Age:58 Y???Sex:MaleDate:06/24/2024hone:[phone]:[address] [place], [place] [id number]:Kenisha Baxter Subjective: * Chief Complaints: * 3 m neuropathy, hyperlipidemia * Electronic signature of NOE Pérez on 10/05/2025 at 07:39 AM ESTSign off status: Pending * Provider: Daniel Benoit, MSN, BONE WORKER, NOE Date: 0 06/24/2024 Generated for Printing/Faxing/eTransmitting on:?10/05/2025 07:39 AM EST
--- OUTSIDE RECORDS SUMMARY | 2024-06-29 05:30 | XMS_ITS ---
Author Organization [facility] vices Address [address] [place], [place] [id number] Care Team Providers Care Home Maker Name Role Phone Kenisha Baxter Primary Care Provider Britt Goodman [phone] REASON FOR VISIT GERD & Hyperlipidemia Social History Sex Assigned At : Social History Observation Description Sex Assigned At Male Encounters Encounter Location Date Provider Diagnosis Main [address] [place], [place] [id number] 06/29/2024 Britt Goodman Plan Of Treatment Next Appt Details Provider Name:Kenisha chung, 01/16/2026 01:15:00 PM, [address] [place], [place], [id number], Progress Notes * Homer EASTMANDOB:[birth year] (60 yo M)Acc No.[id number]:06/29/2024 Medical Note Patient: Homer Pelletier :?Britt Goodman DODOB:1965???Age:59 Y ???Sex:MaleDate:06/29/2024hone:[phone]:[address] [place], [place] [id number]:Kenisha Baxter Subjective: * Chief Complaints: * G ERD & Hyperlipidemia * Electronic signature of Britt Goodman DO on 10/05/2025 at 07:39 AM ESTSign off status: Pending * Provider: Daniel Goodman, Date: 0 06/29/2024 Generated for Printing/Faxing/eTransmitting on:?10/05/2025 07:39 AM EST
--- OUTSIDE RECORDS SUMMARY | 2025-10-05 07:39 | XMS_ITS | Patient Health Record ---
Author Organization [facility] Address [address] [place], [place] [id number] Care Team Providers Care Rig Mechanic Name Role Phone FitzcherylKenisha vasquez Primary Care Provider [phone] Julia Carmona Unavailable [phone] Allergies Allergen (clinical drug ingredient) Drug/Non Drug Allergy documented on EMR Reaction Allergy Type Onset Date Status Bee StingDifficulty breathingAllergyActiveSubstance with penicillin structure and antibacterial mechanism of action (substance)PenicillinsUnknownDrug Allergy Active Results Component Value Reference Range Flag Notes LIPID PANEL WITH REFLEX TO D IRECT LDL Reviewed date:05/02/2025 07:04:47 PM Interpretation: Performing Lab: Notes/Report: CHOLESTEROL 162 100-199 mg/dL TEHTQEJQEPIGH15783-563 mg/dLVLDL-CHOL, WEUOFBRYLO45<30 mg/dLHDL-CHOL36>=40 mg/dL LLDL-CHOL, ZXGIYDXMMB65<130 mg/dL ADULT LDL CHOLESTEROL CLASSIFICATION <100mg/dL Optimal 100-129mg/dL Near/Above Optimal 130-159mg/dL Borderline High >160mg/dL High Risk Desirable range <100 mg/dL for patients with CHD or diabetes and <70 mg/dL for diabetic patients with known heart disease. Direct LDL is recommended for patients with triglycerides >400. LDL/HDL2.8<5.0 LDL/HDL RATIO MALE FEMALE below average risk <2.3 <2.3 average risk <5.0 <4.1 moderate risk <7.1 <5.6 high risk >7.1 >5.6 CHOL/HDL4.52.0-4.5COMPREHENSIVE METABOLIC PANEL WITH GFR Reviewed date:05/02/2025 07:04:12 PM Interpretation: Performing Lab: Notes/Report:LUSMXLG3082-029 mg/jQHUQ691-58 mg/dLCALCIUM9.78.6-10.5 mg/dL CREATININE, BLOOD1.040.67-1.30 mg/dLeGFR (2020 CKD-EPI)84>59 mL/min/1.71b1WXSKJK 755747-924 mmol/LPOTASSIUM3.93.5-5.4 mmol/XTIPLWVDG88602-787 mmol/UHM31466-60 mmol/LANION FFE322-47 mmol/LT. BILIRUBIN0.5<1.3 mg/dLALK AYZL41506-258 U/L MYF-CYFO763-32 U/MYVL-PSBB085-26 U/LT. PROTEIN7.86.0-8.3 g/dLALBUMIN4.23.5-5.2 g/dLPSA, TOTAL, 3RD GENERATION (MC SCREEN) Reviewed date:05/02/2025 07:04:04 PM Interpretation: Performing Lab: Notes/Report: Method: Jyothi Sarah ECLIA PSA levels should not be interpreted as absolute evidence of disease, however it is widely accepted as an adjunctive test in the management of prostate cancer patients. Values obtained with different assay methods or kits can not be used interchangeably. A detectable PSA following radical prostatectomy is associated with eventual clinical disease recurrence in some, but not all patients. It may also be due to the presence of benign glands. The AUA defines biochemical recurrence as an initial PSA value >=0.2 ng/ml followed by a subsequent confirmatory PSA value >=0.2 ng/ml. UNLESS OTHERWISE INDICATED, ALL TESTING PERFORMED AT: [employer] [address] [place] [id number] SYSTEMS SOFTWARE ENGINEER: MIRI ALCANTARA M.D. CLIA NUMBER [id number] CAP ACCREDITATION AUID [id number], TOTAL1.0400-4.00 ng/mL Reason For Referral Reason multiple skin tags Diagnosis 1 Skin tag (L91.8) Referral Organization Main Referring Provider First Name Kenisha Referring Provider Last Name Vee Referring Provider Speciality Nurse Rodrigo whitaker Referred Provider [facility] Referred Provider Specialty Dermatology General Notes Donna Amaro 09:08:30 AM >{ {TOFIRSTNAME}} This is [facility] following up on an outstanding referral that was ordered by your provider. Please call our office at , so we can _update our records. Referral Priority Routine Reason corn of right foot Diagnosis 1 Eldridge of foot (L84) Referral Organization Main Referring Provider First Name Kenisha Referring Provider Last Name Vee Referring Provider Speciality Nurse Rodrigo whitaker Referred Provider [facility] Referred Provider Specialty Podiatry General Notes Donna Amaro 09:08:22 AM >{ {TOFIRSTNAME}} This is [facility] following up on an outstanding referral that was ordered by your provider. Please call our office at , so we can _update our records., Donna Amaro 02/01/2025 10:32:02 AM >No response from patient, closing referral per protocol. Referral Priority Routine Medications Medication SIG (Take, Route, Frequency, Duration) Notes Start Date End Date Status EpiPen 2-Mike 0.3 MG/0.3ML So lution Auto-injector as directed Injection once, may repeat dose once after 5-15 minutes; Duration: 90 days 3ActiveLatanoprost 0.005 % Solutionplace 1 drop into both eyes every evening as directed Ophthalmic; Duration: 25 DaysActiveRosuvastatin Calcium 5 MG Tablet1 tablet Orally Once a day; Duration: 90 days08/29/2022ctiveGabapentin 100 MG CapsuleTAKE 1 CAPSULE BY MOUTH TWICE A DAY FOR 90 DAYS; Duration: 30 ActiveFamotidine 20 MG TabletTAKE 1 TABLET BY MOUTH EVERY DAY AT BEDTIME NEEDED FOR 90 DAYS; Duration: 90ActiveOmeprazole 40 MG Capsule Delayed Release1 capsule 1/2 to 1 hour before morning meal Orally Once a day; Duration: 90 days Active Social History Tobacco Use: Social History Observation Description Date Details (start date - stop date) Current Smoker 12/11/1983 - NA Sex Assigned At : Social History Observation Description Sex Assigned At Male Social History Social DeterminantsSocial InfoQuestionAnswerNotesPRAPAREDate Completed/Updated: 01/06/2025patient entered dataWhat is your current housing situation?I have housingpatient entered dataAre you worried about losing your housing?No patient entered dataWhat is the highest level of school that you have finished?More than high schoolpatient entered dataWhat is your current work situation?signal timer or temporary workpatient entered dataIn the past year, have you or any family members you live with been unable to get any of the following when it was really needed? Check all that applyI do not have problems meeting my needsHas lack of transportation kept you from medical appointments, meetings, work or from getting things needed for daily living?NoHow often do you see or talk to people that you care about and feel close to? (For example: talkingto friends on the phone, visiting friends or family, going to yazdanism or club meetings)Less than once a weekpatient entered dataHow stressed are you? Stress is when someone feels tense, nervous, anxious, or can't sleep at night because their mind is troubledA little bitpatient entered dataIn the past year have you spent more than 2 nights in a row in a shelter, longterm, intermediate center, orjuvenile correctional facility?Nopatient entered dataAre you a refugee?Nopatient entered dataWhat country are you from?[place] patient entered dataDo you feel physically and emotionally safe where you currently live?Yespatient entered dataIn the past year, have you been afraid of your partner or ex-partner?Nopatient entered dataPRAPARE Score:5Sexual History:Social InfoQuestionAnswerNotesFamily PlanningAre you or your partner planning on becoming in the next year if not already ?Choose not to disclosePCMH and UDS DemographicsSocial InfoQuestionAnswerNotesPrimary Care Medical Home QuestionsDo you have any barriers to learning?Nonepatient entered dataWhat is your preferred method of learning?Readingpatient entered dataHow often do you need to have someone help you read instructions?Never patient entered dataHousehold:Social InfoQuestionAnswerNotesHouseholdNumber of adults in household:2Number of children in household:0Drugs/Alcohol/Caffeine: Social InfoQuestionAnswerNotesDrugsHave you used drugs other than those for medical reasons in the past 12 months?NoCAGE-AID Questionnaire (2018 Edition) Have you ever felt that you ought to cut down on your drinking or drug use?No patient entered dataHave people annoyed you by criticizing your drinking or drug use?Nopatient entered dataHave you ever felt bad or guilty about your drinking or drug use?Nopatient entered dataHave you ever had a drink or used drugs first thing in the morning to steady your nerves or to get rid of a hangover?Nopatient entered dataCAGE-AID Rvlub4ErdsnpzweneinkYqjpcdznAxvzbcwo Intake:noneTobacco Use:Social InfoQuestionAnswerNotesTobacco Use/Smoking? Are you interested in quitting?Ready to quitpatient entered data? How many cigarettes a day do you smoke?6-10patient entered data? How soon after you wake up do you smoke your first cigarette?6-30 minutespatient entered data? How often do you smoke cigarettes?every daypatient entered data? When did you start smoking?12/11/1983patient entered dataTobacco use:current smoker patient entered data? When did you start smoking?11/10/1986Additional Findings: Tobacco UserModerate cigarette smoker (10-19 cigs/day)Additional DetailsCategorySocial InfoOptionsDetailsMiscellaneous:Occupation:works part-time Culture/Language BarrierNoEducation LevelGrade 7-12Barriers to LearningNone Learning PreferenceDoing or practicingHow often do you need to have someone help you read instructionsNeverSafetyPatient feels safe in relationshipsYes Drugs/Alcohol/Caffeine:Do you drink alcohol?Socially - once in awhile Problems Problem Type SNOMED Code ICD Code Onset Dates Problem Status W/U Status Risk Notes Problem Body mass index 30.0 0 to 34.99 (900679933036014) Body mass index [BMI] 31.0-31.9, adult (Z68.31) ActiveconfirmedProblemBody mass index 30.00 to 34.99 (182839662850626)Body mass index [BMI] 34.0-34.9, adult (Z68.34)ActiveconfirmedProblemTobacco user (560070466)Cigarette nicotine dependence without complication (F17.210)Active confirmedProblemHyperlipidaemia (77466163)Hyperlipidemia, unspecified hyperlipidemia type (E78.5)ActiveconfirmedProblemNeck pain (58196812)Neck pain (M54.2)ActiveconfirmedProblemGastroesophageal reflux disease without esophagitis (016315566)Gastroesophageal reflux disease without esophagitis (K21.9)Active confirmedProblemNeuropathy (066161536)Neuropathy (G62.9)Activeconfirmed Story:neurology managing, Vital Signs Heart Rate 80 /min 07/18/2025 [...] PM EDT > Height-cm 170.18 cm 07/18/2025 Kelly Kidd 01:57:31 PM EDT > Weight-kg 100.06 kg 07/18/2025 Kelly Kidd 01:57:31 PM EDT > Height 67.00 in 07/18/2025 Kelly Kidd 01:57:31 PM EDT > Blood pressure systolic 134 mm Hg 07/18/2025 Kelly Kidd 07/18/2025 01:57:31 PM EDT > Weight 220.6 lbs 07/18/2025 Kelly Kidd 01:57:31 PM EDT > BMI 34.55 kg/m2 07/18/2025 Kelly Kidd 01:57:31 PM EDT > Encounters Encounter Location Date Provider Diagnosis Main [address] [place], [place] [id number] 01/06/2025 Kenisha Myerholpedro Hyperlipidemia, unspecified hyperlipidemia type E78.5 ; Gastroesophageal reflux disease without esophagitis K21.9 ; Neuropathy G62.9 ; Neck pain M54.2 ; Skin tag L91.8 ; Eldridge of foot L84 ; Body mass index [BMI] 31.0-31.9, adult Z68.31 ; Obesity, class 1 E66.811 and Cigarette nicotine dependence without complication F17.210 Main [address] [place], [place] [id number] 04/11/2025 Kenisha Baxter Well adult exam Z00. 00 ; Screening for cardiovascular condition Z13.6 ; Screening for prostate cancer Z12.5 ; Bee sting allergy Z91.030 ; Body mass index [BMI] 31.0-31.9, adult Z68.31 and Obesity, class 1 E66.811 Main [address] [place], [place] [id number] 07/18/2025 Kenisha Namrataerholtz Hyperlipidemia, unspecified hyperlipidemia type E78.5 ; Gastroesophageal reflux disease without esophagitis K21.9 ; Neuropathy G62.9 ; Neck pain M54.2 ; Body mass index [BMI] 34.0-34.9, adult Z68.34 and Obesity, class 1 E66.811 Main [address] [place], [place] [id number] 10/18/2024 Julia Kristine Neuropathy G62.9 Main [address] [place], [place] [id number] 12/27/2024 Kenisha Namrataerholtz Gastroesophageal ref lux disease without esophagitis K21.9 Main [address] [place], [place] [id number] 12/27/2024 Kensiha Myerholtz Gastroesophageal ref lux disease without esophagitis K21.9 Main [address] [place], [place] [id number] 05/02/2025 Kenisha Namrataerholpedro [id number] [place], [place] [id number]/26/2025Katherine Myerholtz Hyperlipidemia, unspecified hyperlipidemia type E78.5 Assessments Encounter Date Diagnosis (ICD Code) Assessment Notes Treatment Notes Treatment Clinical Notes Section Notes 10/18/2024 Neuropathy (ICD-10 - G62.9) Story:neurolo gy managing, 12/27/2024Gastroesophageal reflux disease without esophagitis (ICD-10 - K21.9) 12/27/2024Gastroesophageal reflux disease without esophagitis (ICD-10 - K21.9) 01/06/2025Hyperlipidemia, unspecified hyperlipidemia type (ICD-10 - E78.5)Pt is stable on current medications. Will continue current medications. F/u 6 months & PRN01/06/2025Gastroesophageal reflux disease without esophagitis (ICD-10 - K21.9)GERD stable. Will continue current medications. F/u 6 months & PRN 04/11/2025Screening for cardiovascular condition (ICD-10 - Z13.6)04/11/2025Well adult exam (ICD-10 - Z00.00) Patient presents to office today for their Annual Wellness Visit. Education was provided on healthy nutrition, including a diet rich in fruits and vegetables, minimizing simple carbohydrates, salt, and saturated fats. Encouraged regular cardiovascular exercise suchas walking at least 30 minutes daily, 5 times per week. Emphasized preventive health measures and educated pt on fall prevention and community-based lifestyle interventions to help reduce health risks and promote healthy living. 07/18/2025Hyperlipidemia, unspecified hyperlipidemia type (ICD-10 - E78.5)Pt is stable on current medications. Will continue current medications. F/u 6 months & PRN07/18/2025Gastroesophageal reflux disease without esophagitis (ICD-10 - K21.9)GERD stable. Will continue current medications. F/u 6 months & PRN 08/05/2025Hyperlipidemia, unspecified hyperlipidemia type (ICD-10 - E78.5) 07/18/2025Neuropathy (ICD-10 - G62.9)Pt is stable on current medications. Will continue current medications. F/u 6 months & PRN04/11/2025Screening for prostate cancer (ICD-10 - Z12.5)01/06/2025Neuropathy (ICD-10 - G62.9)Pt is stable on current medications. Will continue current medications. F/u 6 months & PRN 01/06/2025Neck pain (ICD-10 - M54.2)Pt to continue to f/u with Pain Management & Gmivnvhkc25/02/2025ee sting allergy (ICD-10 - Z91.030)Needed kuprki2807/18/2025 Neck pain (ICD-10 - M54.2)Pt to continue to f/u with Pain Management & Neurology 04/11/2025ody mass index [BMI] 31.0-31.9, adult (ICD-10 - Z68.31)Body Mass Index: Care Instructions material was pemuhpwqe20/08/2025ody mass index [BMI] 34.0-34.9, adult (ICD-10 - Z68.34)01/06/2025Skin tag (ICD-10 - L91.8)Will make referral to Srknjtncewk15/27/2025orn of foot (ICD-10 - L84)Will make referral to Xitjkxvm26/02/2025Obesity, class 1 (ICD-10 - E66.811)07/18/2025Obesity, class 1 (ICD-10 - E66.811)01/06/2025ody mass index [BMI] 31.0-31.9, adult (ICD-10 - Z68.31)Body Mass Index: Care Instructions material was aqxdclhhw45/27/2025 Obesity, class 1 (ICD-10 - E66.811)01/06/2025igarette nicotine dependence without complication (ICD-10 - F17.210)Patient provided with [phone] phone line.07/18/2025OtherBody Mass Index: Care Instructions material was published Plan Of Treatment Next Appt Details Provider Name:Kenisha Ottga chung, 01/16/2026 01:15:00 PM, [address], [place], [id number], Insurance Providers Payer Name Payer Address Payer Phone Subscriber Number Group Number Insured Name Patient Relationship to Insured Coverage Start Date Coverage End Date [facility] [address] [place], [place] [id number] Joby Eastmanelf - patient is the insuredAnthem [facility] [address] [place] [id number], RobertSelf - patient is the [id number] 2022Medicaid [facility] after [facility] [address] [place] [id number], RobertSelf - patient is the [id number] 2022 Medical (General) History Medical History History ICD Code GERD HyperlipidemiaNeuropathySurgical History Surgery Date(Month/Year) Lazy eye Left, (R) elbow ljvvxcv5875-27-34Nrvuko tunnel release on the right [id number] Neck surgery for pinched nerve10/30Right elbow nerve surgery01/30
--- OUTSIDE RECORDS SUMMARY | 2025-10-05 07:39 | XMS_ITS | CCD ---
Author Organization [facility] Care Team Providers Care Senior Benefits Analyst Name Role Phone Harvey Holt Unavailable NON STAFF Primary Care Provider UnavailDAPHNEY Sotelo Attending Provider Rumschlayamila, DO Britt Primary Care Provider Rex, DO Britt Primary Care Provider MD Josué Evangelista Attending Provider Rumcoco, DO Britt Primary Care Provider MD Josué Evangelista Attending Provider [phone] Candida Sidhu Admitting Unavailable Candida Sidhu Attending [...] Attending Unavailable MISJono, DR GARCIAS Consulting Unavailable [facility] Primary Care Unava ilable RADHA, DR GARCIAS Admitting Unavailable RUMSCHLAG, BRITT Primary Care Unavailable YVONNE CAMARENA Referring Unavailable YVONNE CAMARENA Referring Unavailable [facility]ITT Primary Care Unavailable CANDIS RENTERIA Admitting Unavailable CANDIS RENTERIA Attending Unavailable [facility] BRITT Primary Care Unavailable [facility], Britt Primary Care Provider Mani Singer MD Unavailable [facility] Primary Care Provider Mani Singer MD Unavailable Unavailable Charmaine Adkins Unavailable CHARMAINE CASTRO Attending Unavailable MEGA, CHARMAINE Attending Unavailable CANDIDA SIDHU Attending Unavailable MANI SINGER Attending Unavailable CANDIDA SIDHU Attending Unavailable MEGA, CHARMAINE Attending Unavailable Rumschlayamila LEA Britt Primary Care Provider Charmaine Ackerman APRN Attending Provider Giedraitis , Andrius Vytautlaurel Attending Unavailable Giedraitis MD, Andrius Vytautas Attending Unavailable Giedraitis MD, Andrius Vytautas Attending Unavailable Giedraitis MD, Andrius Vytautas Attending Unavailable Giedraitis MD, Andrius Vytautas Attending Unavailable Giedraitis MD, Andrius Vytautas Attending Unavailable Allergies Allergy ClassificationReported Allergen(s)Allergy TypeDate of OnsetReaction(s) Facility (8 sources)penicillAMINEDrug Bhtiqlw72-05-8477Yucusrx, Unknown ReactionGlenbeigh Hospital (7 sources)Bee StingDrug allergyUnknowSaint John's Hospital Pandabus Other (18 sources)Penicillins; Translations: [Penicillins]Allergy to substance 76-28-9556Hydkymo ReactionGlenbeigh Hospital (6 sources)venom-honey bee; Translations: [venom-honey bee]Allergy to substance 92-08-3731YrxxgjypUrjrtgihpGlenbeigh Hospital (1 source)bee venomDrug allergy (disorder)[facility] (1 source)PenicillinDrug AllergyThe [facility] (4 sources)Bee Venom Protein (Honey Bee)Propensity to adverse reactions to drug 88-55-6677Tbpddue ReactionProMediAvita Health System System (5 sources)Honey bee venomPropensity to adverse udflcojdd35-61-3722[facility] Medications Current Medications MedicationDrug Class(es)DatesSig (Normalized)Sig (Original)12 hr buPROPion hydrochloride 150 mg extended release oral tablet (4 sources)Aminoketonetake 1 tablet by mouth once daily, then take 1 tablet by mouth twice dailybuPROPion HCl ER (SR) 150 MG take 1 tablet by mouth daily for 1 week then take 1 tablet twice a dayOral for 30 Activecyclobenzaprine hydrochloride 5 mg oral tablet (10 sources)Muscle RelaxantStart: 26-48-7253lbrr 2 tablets by mouth once daily at bedtimeCyclobenzaprine 5 mg tablet Active 10 MG PO Daily at bedtime 60 May 26, 2025 12:00am Complieswith drug therapyStart: 56-21-4204mzmi 2 tablets by mouth at bedtimecyclobenzaprine (Flexeril) 5 MG tablet Indications: Radiculopathy, cervical region TAKE 2 TABLETS BY MOUTH AT BEDTIME 30 tablet 1 03/16/2025 ActiveStart: 93-13-8590ocag 2 tablets by mouth at bedtime cyclobenzaprine (Flexeril) 5 MG tablet Indications: Radiculopathy, cervical region TAKE 2 TABLETS BY MOUTH AT BEDTIME 30 tablet 1 12/27/2024 ActiveStart: 91-24-4545vqcf 1 tablet by mouth once daily at bedtimecyclobenzaprine (FLEXERIL) 5 mg tablet Take 1 tablet (5 mg total) by mouth once daily at bedtime. Activediclofenac sodium 25 mg delayed release oral tablet (2 sources)Nonsteroidal Anti-inflammatory DrugStart: 03-23-2025 End: 88-45-9780hysb 1 tablet by mouth in the morningdiclofenac (Voltaren) 25 MG EC tablet Indications: Lumbosacral radiculopathy Take 1 tablet (25 mg) by mouth in the morning and 1 tablet (25 mg) before bedtime. Do not crush, chew, or split. 60 tablet2 03/23/2025 04/22/2025 Activefamotidine 20 mg oral tablet (1 source)Histamine-2 Receptor AntagonistStart: 51-88-2946geyk 1 tablet by mouth once daily at bedtimeFamotidine 20 mg tablet Active 20 MG PO Daily at bedtime June 09, 2025 12:00am Complies with drugtherapygabapentin 100 mg oral capsule (10 sources)Anti-epileptic AgentStart: 11-16-5641owue 2 capsules by mouth twice dailyGabapentin 100 mg capsule Active 200 MG PO Twice daily June 09, 2025 12:00am Complies with drug therapytake 2 capsules by mouth in the morning gabapentin (Neurontin) 100 MG capsule Take 200 mg by mouth in the morning and 200 mg before bedtime. Activetake 1 capsule by mouth in the morninggabapentin (Neurontin) 100 MG capsule Take 100 mg by mouth in the morning and 100 mg before bedtime. Activelatanoprost 0.05 mg/ml ophthalmic solution (20 sources)Prostaglandin AnalogStart: 08-38-0689iipp 1 drop(s) into the eye(s) once daily in the eveninglatanoprost (XALATAN) 0.005 % ophthalmic solution place 1 drop into both eyes every evening as directed 08/01/2022 ActiveStart: 25-67-8358fodo 1 drop(s) into the eye(s) once daily at bedtimeLatanoprost 0.005 % drops Active 1 DROPS EYE-BOTH Daily at bedtime October 02, 2021 1:00am Complies with drug therapyStart: 56-69-7212fncc 1 drop(s) into the eye(s) once daily at bedtimeLatanoprost Active 1 DROPS EYE-BOTH Daily at bedtime October 02, 2021 1:00amtake 1 drop(s) into the eye(s) at bedtimelatanoprost (Xalatan) 0.005 % ophthalmic solution Administer 1 drop into both eyes at bedtime Active Latanoprost 0.005 % Ophthalmic for 25 ActiveLatanoprost 0.005 % Ophthalmic for 25 Activemeclizine hydrochloride 25 mg oral tablet (9 sources)Antiemeticmeclizine (Antivert) 25 MG tablet Take 25 mg by mouth as needed in the morning and 25 mg as needed at noon and 25 mg as needed in the evening for dizziness. Activenaproxen 500 mg oral tablet (3 sources)Nonsteroidal Anti-inflammatory DrugStart: 81-55-4061paoe 1 tablet by mouth twice daily for painnaproxen (NAPROSYN) 500 mg tablet take 1 tablet by mouth twice a day if needed for pain for 14 days0 04/21/2017 Activeomeprazole 40 mg delayed release oral capsule (10 sources)Proton Pump InhibitorStart: 42-38-1272hpsu 1 capsule by mouth once dailyOmeprazole 40 mg capsule,delayed release(DR/EC) Active 40 MG PO Daily June 09, 2025 12:00am Complies with drug therapytake 1 capsule by mouth before mealtimeomeprazole (PriLOSEC) [address] capsule Take 40 mg by mouth in the morning. Take before meals. Do not crush or chew. Activerosuvastatin calcium 10 mg oral tablet (19 sources)HMG-CoA Reductase InhibitorStart: 83-45-7280kvwf 1 tablet by mouth once dailyRosuvastatin 10 mg tablet Active 10 MG PO Daily June 09, 2025 12:00am Complies with drug therapyStart: 08-29-2022 End: 40-98-8144gtlr 1 tablet by mouth once dailyRosuvastatin 5 mg tablet Discontinued 5 MG PO Daily January 13, 2023 1:00am June 09, 2025 11:47amtake 1 tablet by mouth once dailyrosuvastatin (Crestor) 10 MG tablet Take 10 mg by mouth Daily Active Completed/Discontinued Medications MedicationDrug Class(es)DatesSig (Normalized)Sig (Original)acetaminophen 500 mg oral tablet (3 sources)Start: 01-13-2023 End: 80-37-6421xisf 2 tablets by mouth twice daily as needed for pain Acetaminophen 500 mg Tablet Discontinued 1000 MG PO Twice daily as needed for Pain January 13, 2023 1:00am June 09, 2025 11:46amStart: 59-06-9510xmsg 1000 mg by mouth twice dailyAcetaminophen Active 1000 MG PO Twice daily January 13, 2023 1:00amcalcium carbonate 500 mg chewable tablet (3 sources)Start: 01-13-2023 End: 75-12-4917lvte 1 tablet by mouth twice daily as needed for gastroesophageal reflux diseaseCalcium Carbonate (Tums) 200 mg calcium (500 mg) Tablet,Chewable Discontinued 600 MG PO Twice dailyas needed for Heartburn January 13, 2023 1:00am June 09, 2025 11:46amcephalexin 500 mg oral capsule (2 sources)Cephalosporin AntibacterialStart: 01-22-2023 End: 93-90-4018idtp 1 capsule by mouth three times dailyCephalexin 500 mg capsule Discontinued 500 MG PO Three times daily January 22, 2023 12:00am 2024 11:47amdiazePAM 5 mg oral tablet (5 sources)BenzodiazepineStart: 10-17-2021 End: 48-71-7480gmsx 1 tablet by mouth four times daily as needed for muscle spasmsDiazepam 5 mg Tablet Discontinued 5 MG PO Four times daily as needed for Muscle Spasm 40 10 October 17, 2021 1:00am January 13, 2023 9:23amibuprofen 200 mg oral tablet (3 sources)Nonsteroidal Anti-inflammatory DrugStart: 01-13-2023 End: 66-00-5747hqdj 2 tablets by mouth once daily as needed for painIbuprofen 200 mg Tablet Discontinued 400 MG PO Daily as needed for Pain January 13, 2023 1:00am 2024 11:47amStart: 92-05-8785tgnp 400 mg by mouth once daily Ibuprofen Active 400 MG PO Daily January 13, 2023 1:00amolopatadine 2 mg/ml ophthalmic solution (2 sources)Histamine-1 Receptor InhibitorStart: 01-22-2023 End: 76-48-2433efra 1 drop(s) into the eye(s) once dailyOlopatadine 0.2 % drops Discontinued 1 DROPS EYE-BOTH Daily January 22, 2023 12:00am June 09, 2025 11:47amStart: 83-17-5989yxxk 1 drop(s) into the eye(s) once dailyOlopatadine Active 1 DROPS EYE-BOTH Daily January 22, 2023 12:00amoxyCODONE hydrochloride 5 mg oral tablet (7 sources)Opioid AgonistStart: 01-22-2023 End: 12-55-3375gyyi 5-10 mg by mouth every six hours as needed for painOxycodone 5 mg tablet Discontinued 5 - 10 MG PO Q6H as needed for Pain 25 8 January 22, 2023 June 09, 2025 11:47amStart: 10-17-2021 End: 71-59-9027lhxk 1 tablet by mouth every four to six hours as needed for pain Oxycodone 5 mg Tablet Discontinued 5 MG PO EVERY 4-6 HOURS as needed for Pain Scale 1 - 5 70 14 October 17, 2021 January 13, 2023 9:23am Problems Active Problems Problem ClassificationProblemDateDocumented DateEpisodic/ChronicConditions associated with dizziness or vertigo (2 sources)Lightheadedness; Translations: [Dizziness and giddiness]09-06-2024 EpisodicDevelopmental disorders (9 sources)Mild intellectual disability; Translations: [Mild intellectual disabilities]Onset: 633510-57-8145VkrflkjIzyengnmww disorders (1 source)Gastro-esophageal reflux disease without esophagitis; Translations: [Gastro-esophageal reflux disease without esophagitis]Onset: 08-83-9672Yycxlln Gastrointestinal hemorrhage (1 source)Melena; Translations: [Melena]Onset: 35-74-2170MoxebenuZwqqyjtozck of prostate (6 sources)Benign prostatic hypertrophy with outflow obstruction; Translations: [Benign prostatic hyperplasia with lower urinary tract symptoms]Onset: 679810-05-1769EwizuzbDtmip gastrointestinal disorders (1 source)Flatulence; Translations: [Flatulence]Onset: 31-40-1694FixkzipyFnfoi gastrointestinal disorders (1 source)Gas pain; Translations: [Gas pain]Onset: 08-07-7283QquqqlfmWkztd gastrointestinal disorders (1 source)Eructation; Translations: [Eructation]Onset: 55-66-8969DqynnygyPznbq nervous system disorders (5 sources)Ulnar neuropathy; Translations: [Lesion of ulnar nerve, right upper limb]ChronicOther nervous system disorders (10 sources)Lesion of ulnar nerve, right upper limb; Translations: [Entrapment of right ulnar nerve at elbow]Onset: 01-14-2022 Resolved: 84-20-5829PbpakftMazfipi on above:Problem List clean-up per request of Phys. EHR CmteOther nervous system disorders (9 sources)Ulnar nerve entrapment at elbow; Translations: [Lesion of ulnar nerve, right upper limb]Onset: 538177-42-2751KojqitoDwiyx nervous system disorders (9 sources)Carpal tunnel syndrome of right wrist; Translations: [Carpal tunnel syndrome, right upper limb]Onset: 018051-17-8868GmmewihCkhsq nervous system disorders (9 sources)Lesion of right ulnar nerve; Translations: [Lesion of ulnar nerve, right upper limb]Onset: 304700-66-1647GrcobgmDkqbl nervous system disorders (9 sources)Chronic pain; Translations: [Other chronic pain]Onset: 04-23-2024 17-51-0839XifsrrmAfppo nervous system disorders (15 sources)Impairment of balance; Translations: [Other abnormalities of gait and mobility]Onset: 541822-93-1329ZtkfpxrmPosntsjt codes; unclassified (4 sources)Obstructive sleep apnea (adult) (pediatric); Translations: [OBSTRUCTIVE SLEEP APNEA]Onset: 56-85-1220QledhgzBjmdzznb codes; unclassified (15 sources)Obstructive sleep apnea syndrome; Translations: [Obstructive sleep apnea (adult) (pediatric)]Onset: 625998-43-1392VvgyjgxBptfabxy codes; unclassified (15 sources)Memory impairment; Translations: [Other amnesia]Onset: 04-23-2024 62-08-8659ThpfzqnaTmowpmtmadw; intervertebral disc disorders; other back problems (20 sources)Prolapsed cervical intervertebral disc; Translations: [Other cervical disc displacement, unspecified cervical region]Onset: 09-19-2021 Resolved: 59-55-8967HdobrhyKbgmbka on above:Problem List clean-up per request of Phys. EHR CmteSpondylosis; intervertebral disc disorders; other back problems (15 sources)Cervical radiculopathy; Translations: [Radiculopathy, cervical region]Onset: 102330-15-6276NhxvvjfsOcskrmllbasw (1 source)Lesion of ulnar nerve, right upper limb; Translations: [Lesion of ulnar nerve, right upper limb]Onset: 17-63-7633Mintuhzlevqp (1 source)Encounter for preprocedural laboratory examination; Translations: [Encounter for preprocedural laboratory examination]Onset: 01-13-2023 Past or Other Problems Problem ClassificationProblemDateDocumented DateEpisodic/ChronicMood disorders (3 sources)Mood disordersOnset: 401541-55-4167Obhlloqzmmt chest pain (1 source)Other chest pain; Translations: [OTHER CHEST PAIN]Onset: 08-12-2022 EpisodicOther connective tissue disease (3 sources)Pain in left upper arm; Translations: [PAIN IN LEFT UPPER ARM]Onset: 98-36-7114YmvdvlexTwhhv nervous system disorders (9 sources)Pain in limb; Translations: [Paresthesia of skin]Onset: 04-23-2024 14-56-0070MeuonhsnOuspr nervous system disorders (11 sources)Hyperreflexia; Translations: [Abnormal reflex]Onset: 04-23-2024 82-46-6936VgcusxmtGzqmj nervous system disorders (9 sources)Paresthesia; Translations: [Paresthesia of skin]Onset: 04-23-2024 16-04-1832LlcrnhwaIvlotulw codes; unclassified (1 source)Other amnesia; Translations: [Other amnesia]Onset: 39-44-2768Wgunjzox Results Test NameValueInterpretationReference RangeFacilityMeasure post void residualon 96-01-3471Qabhxy92 mLProFostoria City Hospital SystemProFostoria City Hospital SystemProstate specific Ag [Mass/Vol]on 35-41-4936KrkVitdrmMary Rutan HospitalProstatic specific antigen, diagnosticon 71-83-2852Twfyoctv specific Ag [Mass/Vol]1.02 ng/mL0.00 - 4.00 ng/mLAdena Fayette Medical CenterComment on above: The method used for this test is Roxy 8eighty Wear DXI chemiluminescent immunoassay. Values obtained by different assay methods cannot be used interchangeably. H. pylori Antigenon 10-16-2023H. pylori AntigenSpecimen Description .FECES Direct Exam NEGATIVE Report Status FINAL 10/16/2023NormalLima Memorial HospitalComment on above: Performed By: #### [facility] #### [facility] [employer] [address] [place] [address] School Occupational Therapist: Guy Ramey MD [facility] [address] [place] [address] School Occupational Therapist: DAINA Sandovalurgical Pathology Reporton 46-04-4913Zldghudi Pathology Report(NOTE) Path Number: [id number] -- Diagnosis -- A. GE junction, endoscopic [...] for each. Microscopic examination performed. Processing Lab: [address] [address] Interpretation Performed at [address] [id number] SURGICAL PATHOLOGY CONSULTATION Patient Name: ROSA EASTMAN [facility] Rec: [id number] [facility] ANATOMIC PATHOLOGY [address] [place] [address]. [place] [address] NoW[facility] with Diffon 42-34-4677Uft. Basophil0.17 k/uLNormal0.00-0.20[facility] Memorial HospitalComment on above:Performed By: #### CDP #### [address] [place] [address] School Occupational Therapist: Glenn Sandoval.Imm.Granulocyte0.04 k/uLNormal0.00-0.30[facility] Memorial HospitalComment on above:Performed By: #### CDP #### [address] [place] [address] School Occupational Therapist: Glenn Sandoval.Neutrophil (Seg)5.08 k/uLNormal1.50-8.10[facility] HospitalComment on above:Performed By: #### CDP #### [address] [place], [place] [address] School Occupational Therapist: Justus Darby MDBasophils/100 WBC (Bld)2 %Normal0-2[facility] HospitalComment on above:Performed By: #### CDP #### [address] [place], [place] [address] School Occupational Therapist: Justus Darby MDEosinophils (Bld) [#/Vol]0.43 10*3/uLNormal 0.00-0.44[facility] HospitalComment on above:Performed By: #### CDP #### [address] [place], [facility] School Occupational Therapist: NANDINI Sandovalosinophils/100 WBC (Bld)4 %Normal1-4[facility] HospitalComment on above:Performed By: #### CDP #### [address] [place], [place] [address] School Occupational Therapist: Justus Darby MDErythrocyte distribution width (RBC) [Ratio]12.3 % Jffbdx66.8-14.4[facility] HospitalComment on above:Performed By: #### CDP #### [address] [place], [place] [address] School Occupational Therapist: Justus Darby MDHematocrit (Bld) [Volume fraction]44.4 %Normal 40.7-50.3MSheltering Arms Hospital HospitalComment on above:Performed By: #### CDP #### [address] [place], [place] [address] School Occupational Therapist: Justus Darby MDHemoglobin (Bld) [Mass/Vol]14.6 g/dLNormal 13.0-17.0[facility] HospitalComment on above:Performed By: #### CDP #### [address] [place], [facility] School Occupational Therapist: Yefri Sandovalmature granulocytes/100 WBC (Bld)0 %Iyctie3XqukaLima Memorial HospitalComment on above:Performed By: #### CDP #### [address] [place], [facility] School Occupational Therapist: Justus Darby MDLymphocytes (Bld) [#/Vol]3.86 10*3/uLHigh1.10-3.70 [facility] HospitalComment on above:Performed By: #### CDP #### [address] [place] [address] School Occupational Therapist: Andres Sandovalmphocytes/100 WBC (Bld)36 %Lopfno07-53KbuahLima Memorial HospitalComment on above:Performed By: #### CDP #### [address] [place], [facility] School Occupational Therapist: ANNETTE Sandoval (RBC) [Entitic mass]30.9 wqNqktlr50.2-33.5 [facility] HospitalComment on above:Performed By: #### CDP #### [address] [place], [facility] School Occupational Therapist: ANNETTE SandovalC (RBC) [Mass/Vol]32.9 g/tKQyicgt57.4-34.8[facility] HospitalComment on above:Performed By: #### CDP #### [address] [place], [place] [address] School Occupational Therapist: NESHA SandovalCV (RBC) [Entitic vol]93.9 oXXmjlsq23.6-102.9 [facility] HospitalComment on above:Performed By: #### CDP #### [facility] [address] [place] [address] [place] [address] School Occupational Therapist: NESHA Sandovalonocytes (Bld) [#/Vol]1.05 10*3/uLNormal0.10-1.20 [facility] HospitalComment on above:Performed By: #### CDP #### [address] [place] [address] School Occupational Therapist: NESHA Sandovalonocytes/100 WBC (Bld)10 %Normal3-12[facility] HospitalComment on above:Performed By: #### CDP #### [address] [place] [address] School Occupational Therapist: Justus Darby MDNeutrophil (Seg)48 %Pbfryz65-73Tfgze Tiffin HospitalComment on above:Performed By: #### CDP #### [address] [place] [address] School Occupational Therapist: Justus Darby MDNRBC Automated0.0 per 100 WBCNormal0.0[facility] HospitalComment on above:Performed By: #### CDP #### [address] [place] [address] School Occupational Therapist: Alfa Sandoval mean volume (Bld) [Entitic vol]9.6 fL Normal8.1-13.5[facility] HospitalComment on above:Performed By: #### CDP #### [address] [place] [address] School Occupational Therapist: TRU Sandovallatelets (Bld) [#/Vol]297 10*3/fPZuccqd935-012 [facility] HospitalComment on above:Performed By: #### CDP #### [address] [place], [place] [address] School Occupational Therapist: SCOTT Sandoval (d) [#/Vol]4.73 10*6/uLNormal4.21-5.77[facility] HospitalComment on above:Performed By: #### CDP #### [facility] [address] [place] [address] School Occupational Therapist: ARSLAN Sandoval (d) [#/Vol]10.6 10*3/uLNormal3.5-11.3[facility] HospitalComment on above:Performed By: #### CDP #### [facility] [address] [place] [address] School Occupational Therapist: Tavia Sandoval Metabolic Panelon 07-12-1949Yeatj gap [Moles/Vol]9.8 mmol/LNormal6.0-15.0[facility] HospitalComment on above:Performed By: #### CBC, BMP #### [place] [address] USACalcium [Mass/Vol]9.1 mg/dLNormal8.2-10.2FBarney Children's Medical CenterComment on above:Result Comment: PERFORMED BY: [place] [address] PATHOLOGIST INTERACTIVE VIDEO TECHNICIAN GENEVIEVE CANNON M.D.Performed By: #### CBC, BMP #### [facility] [address] [place], [place] [address] USAChloride [Moles/Vol]104 mmol/OTmqadf23-125WtrqtrksjGlenbeigh HospitalComment on above:Performed By: #### CBC, BMP #### [facility] [address] [place], [place] [address] USACO2 [Moles/Vol]25.9 mmol/NGdqmmy17.0-30.0[facility] HospitalComment on above:Performed By: #### CBC, BMP #### [place] [id number] USACreatinine [Mass/Vol]0.98 mg/dLNormal0.64-1.27[facility] HospitalComment on above:Performed By: #### CBC, BMP #### [facility] [address] [place] [id number] USAEstimated GFR ( Camila> 60NormalGlenbeigh HospitalComment on above:Result Comment: GFR estimated reference range: According to KDOQI guidelines, <60 ml/min/1.73m2 is sufficient to diagnose a patient with chronic kidney disease.Performed By: #### CBC, BMP #### [facility] [address] [place] [id number] USAEstimated GFR (Non- Am> 60NormTrinity Health System East CampusComment on above:Performed By: #### CBC, BMP #### [place] [address] USAGlucose [Mass/Vol]82 mg/vAOqlytr77-924AvthrxqhyGlenbeigh HospitalComment on above:Result Comment: Random Glucose Reference Range is dependent on time and content of last meal. Glucose of more than 200 mg/dL in a nonstressed, ambulatory subject supports the diagnosis of Diabetes Mellitus. ADA recommended reference rangePerformed By: #### CBC, BMP #### [place] [address] USAPotassium [Moles/Vol]3.7 mmol/LNormal3.5-5.1FBarney Children's Medical CenterComment on above:Performed By: #### CBC, BMP #### [facility] [address] [place] [address] USASodium [Moles/Vol]136 mmol/XLkpulx121-551VatgiksjnGlenbeigh HospitalComment on above:Performed By: #### CBC, BMP #### [facility] [address] [place] [address] USAUrea nitrogen [Mass/Vol]11 mg/dLNormal9-23[facility] HospitalComment on above:Performed By: #### CBC, BMP #### [facility] [address] [place] [address] USABasophils Auto (Bld) [#/Vol]Ordered By: Josué Evangelista on 39-63-7109Uygvtqsgb (Bld) [#/Vol]0.1 10*3/uL0.0-0.2FBarney Children's Medical CenterBasophils/100 WBC Auto (Bld)Ordered By: Josué Evangelista on 01-13-2023 Basophils/100 WBC (Bld)1.2 %.G[facility]beigh HospitalCalcium [Mass/volume] in Serum or PlasmaOrdered By: Josué Evangelista on 27-08-8096Ckjicmq [Mass/Vol]9.1 mg/dL8.2-10.2FBarney Children's Medical CenterCarbon dioxide, total [Moles/volume] in Serum or PlasmaOrdered By: Josué Evangelista on 06-22-8803YC7 [Moles/Vol]25.9 mmol/L22.0-30.0G[facility]beigh HospitalChloride [Moles/volume] in Serum or PlasmaOrdered By: Josué Evangelista on 53-09-3524Jskpnnat [Moles/Vol]104 mmol/P47-122ApbbrhzhpGlenbeigh HospitalComplete Blood Count Auto Diffon 73-08-0507Vtxsebwqn (Bld) [#/Vol]0.1 10*3/uLNormal0.0-0.2FBarney Children's Medical CenterComment on above:Result Comment: PERFORMED BY: [place] [address] PATHOLOGIST INTERACTIVE VIDEO TECHNICIAN GENEVIEVE CANNON M.D.Performed By: #### CBC, BMP #### [facility] [address] [place] [address] USABasophils/100 WBC (Bld)1.2 %Normal.[facility]lenbeigh HospitalComment on above:Performed By: #### CBC, BMP #### [facility] [address] [place] [address] USAEosinophils (Bld) [#/Vol]0.5 10*3/uLHigh0.0-0.45Glenbeigh HospitalComment on above:Performed By: #### CBC, BMP #### [facility] [address] [place] [address] USAEosinophils/100 WBC (Bld)4.7 %Normal.Glenbeigh HospitalComment on above:Performed By: #### CBC, BMP #### [facility] [address] [place] [address] USAErythrocyte distribution width (RBC) [Ratio]12.6 %Normal 12.0-14.8Glenbeigh HospitalComment on above:Performed By: #### CBC, BMP #### [facility] [address] [place] [address] USAHematocrit (Bld) [Volume fraction]41.2 %Leuzwq75.8-50.0 [facility]beigh HospitalComment on above:Performed By: #### CBC, BMP #### [place] [address] USAHemoglobin (Bld) [Mass/Vol]14.1 g/qOYgmfov04.0-17.0 [facility]igh HospitalComment on above:Performed By: #### CBC, BMP #### [place] [address] USALymphocytes (Bld) [#/Vol]3.4 10*3/uLNormal1.00-4.8 [facility]igh HospitalComment on above:Performed By: #### CBC, BMP #### [place] [address] USALymphocytes/100 WBC (Bld)33.3 %Normal.Glenbeigh HospitalComment on above:Performed By: #### CBC, BMP #### [place] [address] USAMCH (RBC) [Entitic mass]31.7 ghVeyiim49.5-35.2FBarney Children's Medical CenterComment on above:Performed By: #### CBC, BMP #### [place] [address] USAMCV (RBC) [Entitic vol]92.3 eEAykzco92.5-101Glenbeigh HospitalComment on above:Performed By: #### CBC, BMP #### [address] [address] USAMean Corpuscular HGB Conc34.4 g/kEOzjtwi59.5-35.6FBarney Children's Medical CenterComment on above:Performed By: #### CBC, BMP #### [facility] [address] [place] [address] USAMonocytes (Bld) [#/Vol]1.0 10*3/uLHigh0.0-0.8Glenbeigh HospitalComment on above:Performed By: #### CBC, BMP #### [facility] [address] [place] [address] USAMonocytes/100 WBC (Bld)10.1 %Normal.Glenbeigh HospitalComment on above:Performed By: #### CBC, BMP #### [facility] [address] [place] [address] USANeutrophils (Bld) [#/Vol]5.2 10*3/uLNormal1.8-7.7FBarney Children's Medical CenterComment on above:Performed By: #### CBC, BMP #### [facility] [address] [place] [address] USANeutrophils/100 WBC (Bld)50.7 %Normal.Glenbeigh HospitalComment on above:Performed By: #### CBC, BMP #### [place] [address] USANRBC%0.1 /100{WBC}Normal0-0.5FBarney Children's Medical CenterComaspirus iron river hospital on above:Performed By: #### CBC, BMP #### [facility] [address] [place] [address] USAPlatelet mean volume (Bld) [Entitic vol]7.8 fLNormal 6.6-10.1FBarney Children's Medical CenterComment on above:Performed By: #### CBC, BMP #### [facility] [address] [place] [address] USAPlatelets (Bld) [#/Vol]268 10*3/mGDvwbmf024-474AiamoyjkuGlenbeigh HospitalComment on above:Performed By: #### CBC, BMP #### [facility] [address] [place] [address] USARBC (Bld) [#/Vol]4.46 10*6/uLNormal3.90-5.60Glenbeigh HospitalComment on above:Performed By: #### CBC, BMP #### [facility] [address] [place] [address] USAWBC (Bld) [#/Vol]10.3 10*3/uLNormal4.1-10.5FBarney Children's Medical CenterComment on above:Performed By: #### CBC, BMP #### [facility] [address] [place] [address] USACreatinine and Glomerular filtration rate.predicted panel (S/P/Bld)Ordered By: Josué Evangelista on 74-95-2158Bdggvqbyad [Mass/Vol]0.98 mg/dL 0.64-1.27Glenbeigh HospitalECG 12 lead ECGon 48-87-7568NYU 12 lead ECGOHIO[facility] [place] [address] [place] [address] Electrocardiograph Report Signed Patient: Rosa Eastman MR#: [id number] 864 : 1965 Acct:[id number] Age/Sex: 57 / M ADM Date: 01/13/23 [...] significant change was found Confirmed by MARYLIN SIMS MD ([id number]) on 01/14/2023 3:34:12 PM Referred By: DR EVANGELISTA Electronically Signed By:MARYLIN SIMS MD Transcribed By: MUS Signed By Marylin Sims MD 0 01/14/23 1534NormalGlenbeigh HospitalEosinophils Auto (Bld) [#/Vol]Ordered By: Josué Evangelista on 65-76-2709Laikeuvutyn (Bld) [#/Vol]0.5 10*3/uL 0.0-0.45Glenbeigh HospitalEosinophils/100 WBC Auto (Bld)Ordered By: Josué Evangelista on 55-64-3371Cuypeszqlkf/100 WBC (Bld)4.7 %.Glenbeigh HospitalErythrocyte distribution width Auto (RBC) [Ratio]Ordered By: Josué Evangelista on 57-75-4771Swjxkhmktkz distribution width (RBC) [Ratio]12.6 %12.0-14.8 [facility] HospitalEstimated glomerular filtration rate (GFR) non- AmericanOrdered By: Josué Evangelista on 11-42-2702JGB/1.73 sq M.predicted among non-blacks MDRD (S/P/Bld) [Vol rate/Area]> 60 mL/MinGlenbeigh HospitalGlucose [Mass/volume] in Serum or PlasmaOrdered By: Josué Evangelista on 89-40-5742Xaykqrk [Mass/Vol]82 mg/rU07-866BheqklwwyGlenbeigh Hospital Comment on above:ADA recommended reference rangeRandom Glucose Reference Range is dependent on time and content of last meal. Glucose of more than 200 mg/dL in a nonstressed, ambulatory subject supports the diagnosisof Diabetes Mellitus. Hematocrit Auto (Bld) [Volume fraction]Ordered By: Josué Evangelista on 01-13-2023 Hematocrit (Bld) [Volume fraction]41.2 %38.8-50.0Glenbeigh HospitalHemoglobin [Mass/volume] in BloodOrdered By: Josué Evangelista on 01-13-2023 Hemoglobin (Bld) [Mass/Vol]14.1 g/dL13.0-17.0[facility] Leukocytes [#/volume] corrected for nucleated erythrocytes in Blood by Automated counOrdered By: Josué Evangelista on 82-83-8306EKB corrected for nucl RBC Auto (Bld) [#/Vol]10.3 10*3/uL4.1-10.5FBarney Children's Medical CenterLymphocytes Auto (Bld) [#/Vol]Ordered By: Josué Evangelista on 28-06-4866Halfmbgonvh (Bld) [#/Vol]3.4 10*3/uL1.00-4.8Glenbeigh HospitalLymphocytes/100 WBC Auto (Bld) Ordered By: Josué Evangelista on 92-27-8177Rxbjaevomfx/100 WBC (Bld)33.3 %.[facility] HospitalH Auto (RBC) [Entitic mass]Ordered By: Josué Evangelista on 10-33-9633RIG (RBC) [Entitic mass]31.7 pg27.5-35.2FBarney Children's Medical CenterMCHC Auto (RBC) [Mass/Vol]Ordered By: Josué Evangelista on 65-26-2915DRTC (RBC) [Mass/Vol]34.4 g/dL32.5-35.6FBarney Children's Medical CenterMCV Auto (RBC) [Entitic vol]Ordered By: Josué Evangelista on 43-95-6912KIM (RBC) [Entitic vol]92.3 fL 83.5-101Glenbeigh HospitalMonocytes Auto (Bld) [#/Vol]Ordered By: Josué Evangelista on 61-51-3095Wxjmxndmn (Bld) [#/Vol]1.0 10*3/uL0.0-0.8Glenbeigh HospitalMonocytes/100 WBC Auto (Bld)Ordered By: Josué Evangelista on 26-97-2149Drdzehdfi/100 WBC (Bld)10.1 %.[facility] Neutrophils Auto (Bld) [#/Vol]Ordered By: Josué Evangelista on 80-42-3281Tlojofdceqz (Bld) [#/Vol]5.2 10*3/uL1.8-7.7FBarney Children's Medical CenterNeutrophils/100 WBC Auto (Bld)Ordered By: Josué Evangelista on 72-33-5741Glhztykaxkt/100 WBC (Bld)50.7 %.Glenbeigh HospitalNo Panel InformationOrdered By: Josué Evangelista on 88-14-3055Mcbpwqddc GFR ()> 60 mL/MinGlenbeigh HospitalComment on above:GFR estimated reference range: According to KDOQI guidelines, <60 ml/min/1.73m2 is sufficient todiagnose a patient with chronic kidney disease.Pharmacy Creatinine Clearance (ChemN/AFBarney Children's Medical CenterNucleated erythrocytes [Presence] in Blood by Automated countOrdered By: Josué Evangelista on 92-28-0241Jljdcydpb RBC Auto Ql (Bld)0.1 /100{WBC}0-0.5FBarney Children's Medical CenterPlatelet mean volume Auto (Bld) [Entitic vol]Ordered By: Josué Evangelista on 57-25-6863Xlebqzqz mean volume (Bld) [Entitic vol]7.8 fL6.6-10.1 [facility]igh HospitalPlatelets Auto (Bld) [#/Vol]Ordered By: Josué Evangelista on 17-03-9902Giaqmyrvb (Bld) [#/Vol]268 10*3/bG009-383MtrjlckknGlenbeigh HospitalPotassium [Moles/volume] in Serum or PlasmaOrdered By: Josué Evangelista on 70-71-0530Wwqirouwp [Moles/Vol]3.7 mmol/L3.5-5.1FBarney Children's Medical CenterRBC Auto (Bld) [#/Vol]Ordered By: Josué Evangelista on 95-65-5407AOH (Bld) [#/Vol]4.46 10*6/uL3.90-5.60Wayne Hospitalerum or plasma anion gap determinationOrdered By: Josué Evangelista on 03-65-8060Xdveo gap [Moles/Vol] 9.8 mmol/L6.0-15.0Wayne Hospitalodium [Moles/volume] in Serum or PlasmaOrdered By: Josué Evangelista on 07-06-4045Hpyfov [Moles/Vol]136 mmol/L 136-146Glenbeigh HospitalUrea nitrogen [Mass/volume] in Serum or PlasmaOrdered By: Josué Evangelista on 86-50-4961Jrne nitrogen [Mass/Vol]11 mg/dL9-23 [facility] HospitalWBC Auto (Bld) [#/Vol]Ordered By: Josué Evangelista on 76-68-0300ZVD (Bld) [#/Vol]10.3 10*3/uL4.1-10.5FBarney Children's Medical CenterXR cerv spine AP/LAT/FLX/EXTon 11-95-0561JA cerv spine AP/LAT/FLX/EXT [facility] [place] [address] [place] [address] XRay Report Signed Patient: Rosa Eastman MR#: [id number] 864 : 1965 Acct:[id number] Age/Sex: 57 / M ADM Date: 12/06/22 [...] Erasmo Maddox M.D.12/06/2022 2:26 PM Dictation Location: [facility]12 Transcribed By: [facility] 12/06/221425 Dictated By: Erasmo Maddox DO 12/06/221421 Signed By: 12/06/22 142NoSelect Medical Specialty Hospital - Cincinnati NorthCBC AUTO DIFFon 08-10-2022 BASO #0.2 103/ulCritically high0.0-0.1The [facility] Flower HospitalComment on above: Performed By: #### CBC #### [facility] [address] [place] [address] [address] Mars SandersBasophils/100 WBC (Bld)2.0 %Normal0.2-2.0The [facility] Comment on above:Performed By: #### CBC #### [facility] [address] [place] [address] [address] Mars Cohen #0.5 103/ulNormal0.0-0.7The [facility] HospitalComment on above: Performed By: #### CBC #### [facility] [address] [place] [address] [address] Mars Patosinophils/100 WBC (Bld)5.7 %Normal0.9-7.0The [facility] Comment on above:Performed By: #### CBC #### [facility] [address] [place] [address] Dr. Mars Patrythrocyte distribution width (RBC) [Ratio]12.4 %Avtpup04.0-15.0 The [facility] HospitalComment on above:Performed By: #### CBC #### [facility] [address] [place] [address] Dr. Mars SandersHematocrit (Bld) [Volume fraction]41.8 %Critically low42.0-54.0 The [facility] HospitalComment on above:Performed By: #### CBC #### [facility] [address] [place] [address] Dr. Mars SandersHemoglobin (Bld) [Mass/Vol]14.0 g/rVYfosic77.0-18.0The [facility] HospitalComment on above:Performed By: #### CBC #### [facility] [address] [place] [address] Dr. Mars Zuniga #0.02 10e3/ulNormal0.00-0.03The [facility] HospitalComment on above:Performed By: #### CBC #### [facility] [address] [place] [address] Dr. Mars Zuniga %0.2 %Normal0.0-0.5The [facility]lower HospitalComment on above: Performed By: #### CBC #### [facility] [address] [place] [address] [address] Mars Peter #3.1 103/ulNormal1.2-3.8The [facility] HospitalComment on above:Performed By: #### CBC #### [facility] [address] [place] [address] [address] Mars Lópezhocytes/100 WBC (Bld)36.3 %Xemcdr06.5-60.0The [facility] HospitalComment on above:Performed By: #### CBC #### [facility] [address] [place] [address] Dr. Mars Partida DIFF REQNONormalThe [facility] HospitalComment on above: Performed By: #### CBC #### [facility] [address] [place] [address] Dr. Mars Gonzales (RBC) [Entitic mass]31.4 bhBvnrha45.9-34.0The [facility] HospitalComment on above:Performed By: #### CBC #### [facility] [address] [place] [address] Dr. Mars Field (RBC) [Mass/Vol]33.5 g/iRPjvzph02.9-35.2The [facility] on above:Performed By: #### CBC #### [facility] [address] [place] [address] Dr. Mars Field (RBC) [Entitic vol]93.7 fYLcboqn46.0-94.0The [facility] Hospitalment on above:Performed By: #### CBC #### [facility] [address] [place] [address] Dr. Mars Gaston #0.8 103/ulNormal0.3-0.8The [facility] on above:Performed By: #### CBC #### [facility] [address] [place] [address] Dr. Mars Gonzalezocytes/100 WBC (Bld)10.0 %Normal1.7-12.0The [facility] Comment on above:Performed By: #### CBC #### [facility] [address] [place] [address] [address] Mars Morejon #3.9 103/ulNormal1.4-6.5The [facility] HospitalComment on above:Performed By: #### CBC #### [facility] [address] [place] [address] Dr. Mars Usutrophils/100 WBC (Bld)45.8 %Takimi57.0-75.0The [facility] HospitalComment on above:Performed By: #### CBC #### [facility] [address] [place] [address] Dr. Mars Acuñalet mean volume (Bld) [Entitic vol]9.4 fLCritically low 9.5-13.5The [facility] HospitalComment on above:Performed By: #### CBC #### [facility] [address] [place] [address] Dr. Mars SandersPLT251 103/dsWidgoi812-050Fhe [facility] HospitalComment on above: Performed By: #### CBC #### [facility] [address] [place] [address] Dr. Mars SandersRBC4.46 106/ulCritically low4.70-6.10The [facility] HospitalComment on above:Performed By: #### CBC #### [facility] [address] [place] [address] Dr. Mars SandersWBC8.4 103/ulNormal4.0-11.0The [facility] HospitalComment on above: Performed By: #### CBC #### [facility] [address] [place] [address] Dr. Mars SolorzanoDIMERon 00-35-1663Q-DIMER0.35 mg/L FEUNormal<=0.59The [facility] HospitalComment on above:Performed By: #### DDIM #### [facility] [address] [place] [address] Dr. Mars SolorzanoDIMER COMMENTSSEE Flower HospitalComment on above:Result Comment: Increases in D-Dimer concentration observed with thromboembolic events [...] stress, and generalized hospitalization. Performed By: #### DDIM #### [facility] [address] [place] [address] Dr. Mars Golden 14(COMP METB)on 63-57-2686Bhrarvb [Mass/Vol]3.8 g/dLNormal 3.4-5.0The [facility] HospitalComment on above:Performed By: #### HSTROPN, CMP #### [facility] [address] [place] [address] Dr. Mars SandersAlbumin/Globulin [Mass ratio]1.0 {ratio}NormalThe [facility]lower HospitalComment on above:Performed By: #### HSTROPN, CMP #### [facility] [address] [place] [address] Dr. Mars Vallejo [Catalytic activity/Vol]127 U/LCritically yvma82-691Wdp [facility] Hospitalment on above:Performed By: #### HSTROPN, CMP #### [facility] [address] [place] [address] Dr. Mars Billingsley [Catalytic activity/Vol]30 U/HGjcrxp61-70Jli Medina Hospitalment on above:Performed By: #### HSTROPN, CMP #### [facility] [address] [place] [address] Dr. Mars Melara gap [Moles/Vol]13.5 mmol/LNormalThe [facility] on above:Performed By: #### HSTROPN, CMP #### [facility] [address] [place] [address] Dr. Mars Barragan [Catalytic activity/Vol]20 U/KNblsah43-17Whz [facility] HospitalComment on above:Performed By: #### HSTROPN, CMP #### [facility] [address] [address] [address] Mars SandersBilirubin [Mass/Vol]0.3 mg/dLNormal0.2-1.0The [facility] Comment on above:Performed By: #### HSTROPN, CMP #### [facility] [address] [place] [address] Dr. Mars SandersCalcium [Mass/Vol]8.7 mg/dLNormal8.5-10.1The [facility] Comment on above:Performed By: #### HSTROPN, CMP #### [facility] [address] [place] [address] Dr. Mars SandersChloride [Moles/Vol]105 mmol/MFhvhzt47-528Bul [facility] Comment on above:Performed By: #### HSTROPN, CMP #### [facility] [address] [place] [address] Dr. Mars SandersCO2 [Moles/Vol]25.4 mmol/PHwsryi54.0-32.0[facility] Comment on above:Performed By: #### HSTROPN, CMP #### [facility] [address] [place] [address] Dr. Mars SandersCreatinine [Mass/Vol]0.98 mg/dLNormal0.70-1.30The [facility] HospitalComment on above:Performed By: #### HSTROPN, CMP #### [facility] [address] [place] [address] Dr. Crews ChangEGFR-AF SPANISH>60Normal>=60The [facility] HospitalComment on above:Performed By: #### HSTROPN, CMP #### [facility] [address] [place] [address] Dr. Mars PatGFR-NON AF SPANISH>60Normal>=60The [facility] HospitalComment on above:Performed By: #### HSTROPN, CMP #### [facility] [address] [address] [address] Mars SandersGlobulin (S) [Mass/Vol]3.9 g/dLNormSelect Medical Specialty Hospital - CincinnatiComment on above:Performed By: #### HSTROPN, CMP #### [facility] [address] [address] [address] Mars SandersGlucose [Mass/Vol]102 mg/hPYvgpzq43-664Uwr [facility] Comment on above:Performed By: #### HSTROPN, CMP #### [facility] [address] [address] [address] Mars SandersPotassium [Moles/Vol]3.9 mmol/LNormal3.5-5.1The [facility] Comment on above:Performed By: #### HSTROPN, CMP #### [facility] [address] [address] [address] Mars SandersProtein [Mass/Vol]7.7 g/dLNormal6.4-8.2The [facility] Comment on above:Performed By: #### HSTROPN, CMP #### [facility] [address] [address] [address] Mars SandersSodium [Moles/Vol]140 mmol/TQwvjdo396-647Otl [facility] Comment on above:Performed By: #### HSTROPN, CMP #### [facility] [address] [address] [address] Mars SandersUrea nitrogen [Mass/Vol]14.0 mg/dLNormal7.0-18.0The [facility] HospitalComment on above:Performed By: #### HSTROPN, CMP #### [facility] [address] [address] [address] Mars SandersUrea nitrogen/Creatinine [Mass ratio]14.3 mg/mgNoAshtabula County Medical CenterComment on above:Performed By: #### HSTROPN, CMP #### [facility] [address] [place] [address] Dr. Mars SandersPROTIMEon 86-11-5322KLE Coag (PPP) [Relative time]0.95 {INR} NormalThe [facility] Flower HospitalComment on above:Performed By: #### PT, PTT #### [facility] [address] [place] [address] Dr. Mars Chaudhary [facility]PITALE BELOWNormalThMercer County Community HospitalComment on above:Result Comment: DESIRED INR: 2.0 - 3.0 CONDITIONS NOT LISTED BELOW 2.5 - 3.5 FOR PROSTHETIC HEART VALVE REPLACEMENT 2.5 - 3.5 RECURRENT THROMBOSIS Performed By: #### PT, PTT #### [facility] [address] [place] [address] Dr. Mars SandersPT Coag (PPP) [Time]10.3 sNormal9.0-11.6The [facility] Comment on above:Performed By: #### PT, PTT #### [facility] [address] [place] [address] Dr. Mars EncisoTon 29-94-9286vDZQ Coag (Bld) [Time]29.9 dHedkos35.3-36.2TrihealthComment on above:Performed By: #### PT, PTT #### [facility] [address] [place] [address] Dr. Mars Vanegas, HIGH SENSITIVITYon 04-67-7734AYXYZE66.3 pg/mLNormal 4.0-76.1[facility] on above:Result Comment: CUT-OFF POINTS HAVE BEEN ESTABLISHED BASED ON THE FOURTH UNIVERSAL DEFINITIONS OF MYOCARDIAL INFARCTION. THE UPPER REFERENCE LIMIT (URL) OF TROPONIN, DEFINED THE 99TH PERCENTILE OF cTnI DISTRIBUTION IN A REFERENCE POPULATION, HAS BEEN CONFIRMED THE DECISION THRESHOLD FOR [place] DIAGNOSIS.Performed By: #### HSTROPN, CMP #### [facility] [address] [place] [address] Dr. Mars SandersXR CHEST 1 Von 83-21-4259HR CHEST 1 VEXAMINATION: XR CHEST 1 V, 08/10/2022 6:28 PM EDT HISTORY: CHEST PAIN, UNSPECIFIED. COMPARISON: Chest 06/22/2021. TECHNIQUE: Chest x-ray: One view. FINDINGS: SUPPORT APPARATUS/POST-SURGICAL CHANGES: None. CARDIOMEDIASTINAL SILHOUETTE: Normal. AIRWAYS/LUNGS: Normal. PLEURAL SPACES: No pleural effusion or pneumothorax. BONES AND SOFT TISSUES: Stable mild to moderate right diaphragmatic elevation. No acute osseous abnormality. IMPRESSION: No acute cardiopulmonary process. Electronically authenticated by: MANI HARGROVE Date: 2022-08-10 18:59[facility] HospitalMR head/brain wo conon 28-51-5107YV head/brain wo [facility] [place] [address] [place] [address] MRI Report Signed Patient: Rosa Eastman MR#: [id number] 864 : 1965 Acct:[id number] Age/Sex: 57 / M ADM Date: 07/08/22 Loc: [facility] Room: Type: [facility] Attending Dr: Candida Alexander PA-C Copies to: [...] Rob Funez M.D.07/08/2022 1:37 PM Dictation Location: [place] [address] Transcribed By: [facility] 07/08/22 1337 Dictated By: Rob Funez II, MD 07/08/22 1334 Signed By: 07/08/22 1337NoSelect Medical Specialty Hospital - Cincinnati NorthFolate [Mass/volume] in Serum or PlasmaOrdered By: Candida Alexander on 13-10-1970Tqodch [Mass/Vol]7.4 ng/mL >5.9[facility]beigh HospitalComment on above:Folate reference range: >5.9 ng/ml The WHO technical consultation on folate and vitamin b12 deficiencies has determined that folate concentrations less than 4 ng/ml are considered deficient.Free T4 (Free Thyroxine)on 16-97-8031Myrk T4 [Mass/Vol]0.77 ng/dLNormal0.61-1.12G[facility]igh HospitalComment on above:Performed By: #### [id number], T4F, TSH3 #### [address] #### METH #### [facility] ,Laboratory - Chemistry and Chemistry - challengeOrdered By: Candida Alexander on 44-71-6717Wdswlnhih (Vitamin B12) [Mass/Vol]369 pg/lP452-816TazuanwawGlenbeigh HospitalMethylmalonic Acidon 41-36-2960Jfoelwayokedv Byfq499Yazymp7-947 [facility] HospitalComment on above:Result Comment: This test was developed and its performance characteristics determined by [facility]. It has not been cleared or approved by the Food and Drug Administration. Performed at: [address] [id number] School Occupational Therapist: Millicent Calderon MD, Phone: [phone] PERFORMED BY: [place] [address] PATHOLOGIST INTERACTIVE VIDEO TECHNICIAN GENEVIEVE CANNON M.D.Performed By: #### [id number], T4F, TSH3 #### [facility] [address] [place] [address] #### METH #### [facility] ,Serum or plasma methylmalonate measurement (moles/volume)Ordered By: Candida Alexander on 73-89-3027Outqflykzagbva [Moles/Vol]241 nmol/L0-378G[facility]igh HospitalComment on above:This test was developed and its performance characteristics determined by [facility]. It has not been cleared or approved by the Food and Drug Administration. Performed at: [facility] [address] [id number] School Occupational Therapist: Millicent Calderon MD, Phone: [phone] DL <= 0.005 mIU/L Qn Ordered By: Candida Alexander on 44-60-6965LGB Qn2.46 m[IU]/L0.45-5.33[facility]igh HospitalThyroid Stimulating Hormoneon 22-35-2992KMT Qn2.46 m[IU]/LNormal0.45-5.33[facility]igh HospitalComment on above:Result Comment: PERFORMED BY: [place] [address] PATHOLOGIST INTERACTIVE VIDEO TECHNICIAN GENEVIEVE CANNON M.D.Performed By: #### [id number], T4F, TSH3 #### [facility] [address] [place] [address] #### METH #### [facility] ,Thyroxine (T4) free [Mass/volume] in Serum or PlasmaOrdered By: Candida Alexander on 34-15-7872Pxqq T4 [Mass/Vol]0.77 ng/dL0.61-1.12[facility] Vit. B12/Folate Profileon 33-40-9313Ifcsncgmk (Vitamin B12) [Mass/Vol]369 pg/mL Hwdqdp273-455TndlolavwGlenbeigh HospitalComment on above:Performed By: #### [id number], T4F, TSH3 #### [facility] [address] [place] [address] [place] #### METH #### [facility] ,Folate7.4 ng/mLNormal>5.9Glenbeigh HospitalComment on above: Result Comment: Folate reference range: >5.9 ng/ml The WHO technical consultation on folate and vitamin b12 deficiencies has determined that folate concentrations less than 4 ng/ml are considered deficient.Performed By: #### [id number], T4F, TSH3 #### [address] #### METH #### [facility][id number] ,Coding Summaryon 56-05-8535Wwfgfh SummaryHTMLBase 64 OzkvrifnTTd6dHp+PGhlYWQ+BP2KXSVjE91zhFSwnI9GQ9lHWT0UILDSDVQFYV1LIM4mnXI0WMoqM4Qf biAv [file] OiB (more content not included)...[facility] HospitalCoding SummaryHTMLBase 64 CahekueqTEi5bTc+PGhlYWQ+QD1ALCErO95xsMHtrT6UJ3aAFI4VHNSXFCIEBS1UPQ7cmJS0CAdbW0Df biAv [file] b2x (more content not included)...[facility] CenterED Clinical Summaryon 35-48-9619PA Clinical [facility] - Emergency Department [address] [place], [place] [id number] ED Clinical Summary PERSON INFORMATION Name: ROSA EASTMAN Age: 56 Years Sex: MALE : 1965 MRN: Acct#: Visit Reason: Hand pain-swelling; RT HAND SWELLING/NUMBNESS AND TINGLING Arrival: 02/05/2022 14:13:58 Discharge: 02/05/2022 15:08:00 LOS: 000 00:55 Check In: 02/05/2022 14:13:58 Checkout:02/05/2022 15:08:00 Address: [address] [facility] [address] PCP: Britt Goodman DO PROVIDER INFORMATION Provider [...] Follow-Up: With: Address: When: Andrew Mckenzie DO [address] [place] [address] Within 3 to 5 days Comments: Diagnosis [...] in the right fourth and fifth fingers, thiscould be from the area of the elbow, and or the area of the wrist we have had previous surgery. Youare scheduled to have an EMG test, which will help delineate this. We are starting you on steroids,while on steroids, avoid taking ibuprofen and use only Tylenol. They can cause gastric discomfort. If taking Tylenol, do not take more than 4000 mg in a 24-hour. Follow-up with listed orthopedic surgeon next 3 to 5 days for reevaluation. Prescription is electronically sent to [facility]. Return to the emergency department for worsening symptoms or concerns, acute shortness of breath, chest pain, abdominal pain, nausea or vomiting, or any questions. 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 Pt also states swelling, none seen at this time. Pt states a hx of surgery to his right Arm for a pinched nerve 3 years ago.[facility] Patient Summaryon 54-75-0136RO [facility] [address] [place] [address] PATIENT DISCHARGE INSTRUCTIONS Patient Information Name: ROSA EASTMAN Age: 56 Years Date of : 1965 Reason For Visit: Hand pain-swelling; RT HAND SWELLING/NUMBNESS AND TINGLING Arrival Time: 02/05/2022 14:13:58 Primary Care Physician: Britt Goodman DO Attending Physician: Lennie Wilcox MD Comment: Visit Diagnosis: Diagnoses This Visit Cubital tunnel syndrome on right (G56.21) Hand pain-swelling ([id number]) Paresthesia of hand (R20.2) Prescription Information: If you have been given a prescription for narcotics, seek immediate medical attention if you have any difficulty breathing or any sudden status changes such as confusion andsleepiness. If you or anyone you know is experiencing suicidal thoughts, mental health, alcohol and/or drug addiction problems; contact the [facility] 02/06 Crisis Hotline -text 4HOSR fw 645948. If you received any narcotics, sedation, or [...] any legal documents With: Address: When: MagalyAndrew blue [address] [place] [address] Within 3 to 5 days Comments: Diagnosis [...] in the right fourth and fifth fingers, thiscould be from the area of the elbow, and or the area of the wrist we have had previous surgery. Youare scheduled to have an EMG test, which will help delineate this. We are starting you on steroids,while on steroids, avoid taking ibuprofen and use only Tylenol. They can cause gastric discomfort. If taking Tylenol, do not take more than 4000 mg in a 24-hour. Follow-up with listed orthopedic surgeon next 3 to 5 days for reevaluation. Prescription is electronically sent to [facility]. Return to the emergency department for worsening symptoms or concerns, acute shortness of breath, chest pain, abdominal pain, nausea or vomiting, or any questions. Medication Information: The exam and treatment you received today in the [facility] Emergency Department were for an urgent problem and are not intended as complete care. It is important for you to follow up with a doctor, nurse practitioner, or physician?s urgent care physician assistant for ongoing care. If your symptoms become worse or you donot improve as expected and you are unable [...] so we can reach you if necessary. [facility] Emergency Department has provided you with a complete list of medications post discharge. Please inform your metallurgical laboratory assistant/provider of your visit and for further instruction on these medications. Any specific questions regarding your chronic medications and dosages should be discussed with your primary care physician(s) and/or pharmacist. New Medications [address], [address] [place] [phone], [phone] predniSONE (predniSONE 20 mg oral tablet) 2 tab(s) Oral every day for 5 Days. Refills: 0. Additional medications on your home medication list not specifically addressed. Please contact the ordering physician if you have questions about these medications. acetaminophen-hydrocodone (hydrocodone-acetaminophen 5 mg-325 mg ([place] 5)) 1 tab(s) Oral Every 6 hours as needed as needed for pain. latanoprost ophthalmic (latanoprost 0.005% ophthalmic solution) 1 Drops Ophthalmic once a day (at bedtime). both eyes. Visit Information Allergies: Substance Reaction Symptoms Type Comments Bee Stings Drug penicillins Drug Vi (more content not included)...[facility] HospitalProvider [place] 89-96-6250Timpkuxq [id number]#1.00OTGTIFF [facility] HospitalCoding Summaryon 80-32-7868Liwjwm SummaryHTMLBase 64 MhaqlrmbNVc0qBm+PGhlYWQ+CJ6ONZEsK64jbHDytF8WI7kAZZ8KROYLYWKGDJ4GFX1twJF1OGrdH0Zs biAv [file] OiB (more content not included)...[facility] CenterRad - MRI Reporton 95-43-0828Ksl - MRI [id number]#1.00OTGTIFF [facility] CenterMRA Neck w/o Contraston 19-57-9240CNX Neck w/o Contrast EXAMINATION: MRA Neck w/o [...] La Torre MD 10/12/21 7:46 am Technologist: [facility] HospitalCoding Summaryon 33-17-5645Vkpgpl Summary HTMLBase 64 BfevajpyMYw5cFo+PGhlYWQ+RU7VNPZlG72zqKBdxZ4FD4pKNW5TYOJRSDDTZW1WTG9quHI5KLxeT2Om biAv [file] OiB (more content not included)...[facility] HospitalCoding Summaryon 92-54-9536Whpsxb SummaryHTMLBase 64 TgqeytfhVYl8gBg+PGhlYWQ+MJ0FJTOxD82pwRTnmS7EC0nQDS1BIEVSWELVKJ7BRO9sdWN3RCxmA0El biAv [file] OiB (more content not included)...[facility] CenterProvider [place] 66-71-3220Bshoopbu [id number]#1.00OTGTIFF [facility] CenterRad - MRI Reporton 43-42-7499Ljw - MRI Report [id number]#1.00OTGTIFFMetroHealth Parma Medical CenterMRA Head w/o Contraston 70-69-3645QQK Head w/o ContrastMRA HEAD WITHOUT CONTRAST; 08/27/2021 2:19 PM EDT Clinical History:LOSS OF BALANCE Comparison: None available . Sequences: Axially acquired 3-D gradient echo series for the purposes of hjbd-pb-arfjyr MRA. From this data set multiple volumetric [...] Rosa Deshpande MD 08/28/21 7:28 am Technologist: [facility] Brain w/o Contraston 86-90-1137RFU Brain w/o Contrast Begin Addendum #1 Addendum: Correlated with MRA same date [...] Rosa Deshpande MD 08/27/21 2:50 pm Technologist: [facility] Spine Cervical w/o Contraston 50-46-8378UBB Spine Cervical w/o ContrastMRI CERVICAL SPINE WITHOUT CONTRAST: 08/27/2021 2:55 PM [...] Rosa Deshpande MD 08/28/21 7:38 am Technologist: [facility] HospitalPhysical Therapy Noteon 08-06-2021 Physical Therapy [id number]#1.00OTWright-Patterson Medical CenterProvider [place] 88-78-4796Ochufbrp Orders [id number]#1.00[facility] Provider [place] 15-24-5945Oolnesuc Orders [id number]#1.00[facility] Coding Summaryon 01-41-5156Ypuojt SummaryHTMLBase 64 ShsnnjpkZLv4wXk+PGhlYWQ+YY2RMTMaO62kaSPlwB6IY5qVQF3EBRLIRTYBQC7DIW3zpLS9EYuxL1Oe biAv [file] OiB (more content not included)...[facility] CenterProvider [place] 38-75-6074Xmooqmrw [id number]#1.00OTGTIFF [facility].Auto Diff 1on 97-69-0790Nllf Lane %10 %Normal1-12 [facility] HospitalComment on above:Performed By: #### [id number], [id number], [id number] ####[facility] (DEFAULT)[address] [place] [address] 388[address] Baso Abs#0.2 w93Zvuwad2.0-0.2MKeenan Private HospitalComment on above:Performed By: #### [id number], [id number], [id number] ####[facility] (DEFAULT)[address] [place] [address] 73602Prkapsgbu/100 WBC (Bld)1.9 %Normal0.2-2.0Mag[facility]uder HospitalComment on above:Performed By: #### [id number], [id number], [id number] ####[facility] (DEFAULT)[address] [place] [address] 18947Pwv Abs# 0.4 f82Fnmwad3.0-0.4Mag[facility] HospitalComment on above:Performed By: #### [id number], [id number], [id number] ####[facility] (DEFAULT)[address] [place] [address] 88310Jmqnwnutvmy/100 WBC (Bld)4.7 %High0.9-4.0[facility] HospitalComment on above:Performed By: #### [id number], [id number], [id number] ####[facility] (DEFAULT)[address] [place] [address] 85310Ddfpl Abs# 2.9 v56Guqsmy0.3-2.9[facility] HospitalComment on above:Performed By: #### [id number], [id number], [id number] ####[facility] (DEFAULT)[address] [place] [address] 16197Ifxhbrrrypo/100 WBC (Bld)33 %Oaewmo28-53Kcnewtwh HospitalComment on above:Performed By: #### [id number], [id number], [id number] ####[facility] (DEFAULT)[address] [place] [address] 79137Rwgb Abs# 0.9 a60Qjyo2.0-0.8[facility] HospitalComment on above:Performed By: #### [id number], [id number], [id number] ####[facility] (DEFAULT)[address] [place] [address] 84027Igkz Abs#4.6 u01Suvgni8.5-9.2[facility] HospitalComment on above: Performed By: #### [id number], [id number], [id number] ####[facility] (DEFAULT)[address] [place] [address] 73048Snrjqcrllel/100 WBC (Bld)50 % Gawgbl89-64Uzqxtwww HospitalComment on above:Performed By: #### [id number], 7742989, [id number] ####[facility] (DEFAULT)[address] [place] [address] 51859KQE w/ Auto Diffon 86-04-6400Erkrybvynvb distribution width (RBC) [Ratio]13.2 %Bbdhtc80.5-15.0[facility] HospitalComment on above:Performed By: #### [id number], [id number], [id number] ####[facility] (DEFAULT)[address] [place] [address] 87943Qaqmbsyske (Bld) [Volume fraction]45.3 %Normal 34.8-51.9[facility] HospitalComment on above:Performed By: #### [id number], 6298043, [id number] ####[facility] (DEFAULT)[address] [place] [address] 14380 Hemoglobin (Bld) [Mass/Vol]14.9 g/uQGzchpw73.8-17.7[facility] HospitalComment on above:Performed By: #### [id number], 5131812, [id number] ####[facility] (DEFAULT)[address] [place] [address] 38395Cypap WBC9.0 b17Gkfvvep Interpretation CodeCincinnati Children'S Hospital Medical Center HospitalComment on above:Performed By: #### [id number], [id number], [id number] ####[facility] (DEFAULT)[address] [place] [address] 25243Cef Diff?AutoNormalCincinnati [facility]S Hospital Medical Center HospitalComment on above:Performed By: #### [id number], 1815649, [id number] ####[facility] (DEFAULT)[address] [place] [address] 27245GZI (RBC) [Entitic mass]31 pg Nhezrt16-42Vcqnkjpr HospitalComment on above:Performed By: #### [id number], [id number], [id number] ####[facility] (DEFAULT)[address] [place] [address] 50903YIMZ (RBC) [Mass/Vol]33 g/pTInevbo85-31Sgrcbjbu HospitalComment on above:Performed By: #### [id number], [id number], [id number] ####[facility] (DEFAULT)[address] [place] [address] 88787ASN (RBC) [Entitic vol]95 fL Wgakzp15-419Szumbdie HospitalComment on above:Performed By: #### [id number], [id number], [id number] ####[facility] (DEFAULT)[address] [place] [address] 38196Rxcwdurf226 i77Udkryn154-202Lpslmmhs HospitalComment on above:Performed By: #### [id number], 8894959, [id number] ####[facility] (DEFAULT)[address] [place] [address] 07511Yxhttljm mean volume (Bld) [Entitic vol]9.1 fLNormal 6.3-10.2Mselect medical specialty hospital [facility] HospitalComment on above:Performed By: #### [id number], [id number], [id number] ####[facility] (DEFAULT)[address] [place] [address] 72568 RBC4.78 j30Udxnbe2.70-5.30[facility] hospital HospitalComment on above:Performed By: #### [id number], 1067403, [id number] ####[facility] (DEFAULT)[address] [place] [address] 96210ZAJ7.0 s92Rmbjig5.5-10.5[facility] HospitalComment on above:Performed By: #### [id number], [id number], [id number] ####[facility] (DEFAULT)[address] [place] [address] 96439ZAO w/ Reflex to FTon 54-26-5618FNZ Qn2.41 m[IU]/LNormal0.45-5.33[facility] HospitalComment on above: Result Comment: General Population (males and non- females, aged 21-88) 0.45 - 5.33 Females, 1st Trimester 0.05 - 3.70 Females, 2nd Trimester 0.31 - 4.35 Females, 3rd Trimester 0.41 - 5.18Performed By: #### [id number], [id number], [id number] ####[facility] (DEFAULT)[address] [place], [place] [address] Carotid Duplex Bilateralon 20-15-9601NB Carotid Duplex BilateralDUPLEX ULTRASOUND EXAMINATION OF THE CAROTID ARTERIES. COMPARISON: None. HISTORY / INDICATIONS: Evaluate for carotid stenosis TECHNIQUE: Bilateral common carotid arteries, extracranial internal and external carotid arteries are evaluated with hogan-scale imaging, color Doppler, and spectral analysis according to a standard protocol. ICA-CCA ratios are calculated with chemical sales representative peak-systolic velocities and recorded. Vertebral [...] Signature): Jules Tilley 06/22/21 2:18 pm Technologist: [facility] HospitalXR Chest 2 Viewson 58-39-8113KL Chest 2 ViewsEXAM: XR Chest 2 Views. HISTORY: Current smoker. [...] Nguyễn Aranda MD 06/22/21 3:55 pm Technologist: [facility] HospitalCoding Summaryon 21-55-0975Jbgguo SummaryUNIVERSITY OF UTAH HOSPITALBase 64 TgtpkrlpXYq9wBl+PGhlYWQ+PW6RZVWfS54beLTljT4AH3tQWV4QOQLCEWPYQG9VYP2zcLY2YXmaV6Cg biAv [file] ZT0 (more content not included)...NormalCinc[facility] Center HospitalProvider [place] 30-79-1427Kpewqsat [id number]#1.00OTGTIFF [facility] HospitalCoding Summaryon 59-31-8116Ywskob SummaryMLBase 64 RpvcgbcjVYk5sAb+PGhlYWQ+MV3KCYNjC10mzEZgyE7FI4yLHJ9XFGUPXYJVMN0HMC5bfZE6KLmoR1Na biAv [file] OiB (more content not included)...[facility] HospitalCoding Summaryon 94-46-4778Ixgmiv SummaryHTMLBase 64 EimbkivcEXw7vEw+PGhlYWQ+RS2PDTNqG21vwWYchP5TG5vAWN8KWSFSFFSAEJ2NME2ccRV1TTxnT0Pg biAv [file] b2x (more content not included)...NormalCincinnati Children'S Hospital Medical Center HospitalCoding SummaryHTMLBase 64 SvdxrkfpNLw2gDr+PGhlYWQ+OQ2WFBFzV63ifIKsrR9XD3wWYC4FWHMRECZTAW5YEW9ffVZ7LNysD3Ms biAv [file] b2x (more content not included)...[facility] CenterED Clinical Summaryon 38-07-8326CX Clinical [facility] - Emergency Department [address] [place] [address] [id number] ED Clinical Summary PERSON INFORMATION Name: ROSA EASTMAN Age: 55 Years Sex: MALE : 1965 MRN: Acct#: Visit Reason: Hand pain-swelling; RIGHT WRIST PAIN Arrival: 04/01/2021 19:05:43 Discharge: 119:35:00 LOS: 000 00:30 Check In: 04/01/2021 19:05:43 Checkout:04/01/2021 19:35:00 Address: [address] [place] [address] PCP: Provider, None PROVIDER INFORMATION Provider Role [...] Follow-Up: With: Address: When: Andrew Mckenzie DO [address] [place] [address] Within 3 to 5 days DIAGNOSIS: 1:Sprain of right wrist Patient Understands: Yes - Patient/family/caregiver verbalizes understanding of instructions given Comment:[facility] CenterED Patient Summaryon 56-72-7515XU Patient Summary [facility] - Emergency Department [address] [place] [address] [id number] PATIENT DISCHARGE INSTRUCTIONS Patient Information Name: ROSA EASTMAN Age: 55 Years Date of : 1965 Reason For Visit: Hand pain-swelling; RIGHT WRIST PAIN Arrival Time: 04/01/2021 19:05:43 Primary Care Physician: Provider, None Attending Physician: Medhat Hernandez MD Comment: Visit Diagnosis: Diagnoses This Visit Hand pain-swelling ([id number]) Sprain of right wrist (S63.501A) Prescription Information: If you have been given a prescription for narcotics, seek immediate medical attention if you have any difficulty breathing or any sudden status changes such as confusion andsleepiness. If you or anyone you know is experiencing suicidal thoughts, mental health, alcohol and/or drug addiction problems; contact the [facility] 02/06 Crisis Hotline -Text 0YEXI op 731889. If you received any narcotics, sedation, or [...] With: Address: When: Andrew Mckenzie DO [address] [place] [address] Within 3 to 5 days Medication Information: The exam and treatment you received today in the [facility] Emergency Department were for an urgent problem and are not intended as complete care. It is important for you to follow up with a doctor, nurse practitioner, or physician?s urgent care physician assistant for ongoing care. If your symptoms become worse or you donot improve as expected and you are unable [...] so we can reach you if necessary. [facility] Emergency Department has provided you with a complete list of medications post discharge. Please inform your metallurgical laboratory assistant/provider of your visit and for further instruction on these medications. Any specific questions regarding your chronic medications and dosages should be discussed with your primary care physician(s) and/or pharmacist. Medications to Continue That Have Not Changed Other Medications acetaminophen-hydrocodone (hydrocodone-acetaminophen 5 mg-325 mg ([place] 5)) 1 tab(s) Oral Every 6 hours [...] injury. ? With poor (more content not included)...[facility] Vital Signs Date TimeVital SignValuePerforming VkmafnkmdMpyebxrl77-60-4271 11:45-0400 Diastolic blood gvbzsyvx29 mm[Hg]Britt Rumschlag DO Work Phone: [facility]07-31-2025 11:45-0400 Heart rate71 /minBetty Rumschlag DO Work Phone: [facility]07-31-2025 11:45-0400 Systolic blood iuitktuo679 mm[Hg]Britt Rumschlag DO Work Phone: [facility]05-14-2025 13:13-0400 Body .7 cmAngela Lowe PA Work Phone: [facility] HospitalVyxhvjngeb98-69-5017 13:13-0400Body mass index (BMI) [Ratio]31.02 kg/d1Ynnqjc Lowe PA Work Phone: [facility] HospitalSyazstpdgb66-62-6081 13:13-0400Body .53 kgAngela Lowe PA Work Phone: [facility] HospitalHkwxttyxeg88-35-7023 13:13-0400Diastolic blood elnwkykq34 mm[Hg]Charmaine Lowe PA Work Phone: [facility] HospitalYfqdfvevwi66-56-2382 13:13-0400Systolic blood tqwymjxh064 mm[Hg]Charmaine Lowe PA Work Phone: [facility] HospitalNswwvjktrq33-91-3781 13:00-0500Body dwmisk501.7 cmAngela Lowe PA Work Phone: noCox BransonVpcowcolyr61-29-5959 13:00-0500Body mass index (BMI) [Ratio]30.87 kg/b0Oywwec Lowe PA Work Phone: [facility] HospitalJsiqpnlhnl67-38-3647 13:00-0500Body gipdlp78.08 kgAngela Lowe PA Work Phone: [facility] HospitalLqnuepzxmd07-19-9407 13:00-0500Diastolic blood mm[Hg]Charmaine Lowe PA Work Phone: NOC[facility] BransonSrwlaptvdt12-85-6503 13:00-0500Systolic blood uhoyuncm755 mm[Hg]Charmaine Lowe PA Work Phone: noIA Egirmlgwgt19-78-4930 14:15-0500Body hautze887.7 cmTalbert Small MD Work Phone: [facility]02-04-2025 14:15-0500Body mass index (BMI) [Ratio]31.02 kg/b0UlyvaipHilario Small MD Work Phone: [facility]02-04-2025 14:15-0500Body shxbek34.53 kgHilario Small MD Work Phone: [facility]02-04-2025 14:15-0500Diastolic blood nmqksybn60 mm[Hg]Hilario Small MD Work Phone: [facility]02-04-2025 14:15-0500Heart rate 91 /minHilario Small MD Work Phone: [facility]02-04-2025 14:15-0500Systolic blood mm[Hg]Hilario Small MD Work Phone: [facility]10-28-2024 13:16-0400Body itseku727.7 cmAyuli Sidhu PA Work Phone: noC[facility] BransonUwczaaldrj84-34-8735 13:16-0400Body mass index (BMI) [Ratio]32.54 kg/m2Candida Sidhu PA Work Phone: [facility] HospitalSoykmwfynt86-34-4368 13:16-0400Body osbxou95.07 kgCandida Sidhu PA Work Phone: [facility] HospitalAerpwqmnla89-85-0168 13:16-0400Diastolic blood oxkfcigp89 mm[Hg]Candida Sidhu PA Work Phone: noC[facility] BransonUdcqmxfizk77-39-4754 13:16-0400Heart rate59 /min Candida Sidhu PA Work Phone: noC[facility] BransonToihbkutfm84-82-4964 13:16-0400Respiratory rate16 /minCandida Sidhu PA Work Phone: [facility] HospitalFktqsdvtot96-80-0132 13:16-5864VjJ2% (BldA) [Mass fraction]99 %Candida PUENTES Work Phone: no[facility] Vquggkfiwg23-32-9802 13:16-0400Systolic blood cprejmwv309 mm[Hg]Candida PUENTES Work Phone: noCox BransonLnhmymzryt73-14-6393 15:33-0500Body hdhaxu066.7 Kevin Small MD Work Phone: [facility] HospitalTeamVisibility01-30-2024 15:33-0500Body mass index (BMI) [Ratio]31.02 kg/f0NwbcnudHilario Small MD Work Phone: [facility] HospitalTeamVisibility01-30-2024 15:33-0500Body bypfst69.53 kgHilario Small MD Work Phone: [facility] HospitalTeamVisibility01-30-2024 15:33-0500Diastolic blood rgmizizy55 mm[Hg]Hilario Small MD Work Phone: [facility] HospitalTeamVisibility01-30-2024 15:33-0500Heart rate 79 /minHilario Small MD Work Phone: [facility] HospitalTeamVisibility01-30-2024 15:33-0500Systolic blood pwxkuupo913 mm[Hg]Hilario Small MD Work Phone: [facility] HospitalTeamVisibility04-13-2023 14:00-0400Body zeubxy359.72 cmJosué Evangelista Other [employer] Other 04-13-2023 14:00-0400Body mass index (BMI) [Ratio] 32.08 kg/m2Josué Evangelista Other [employer] Other 04-13-2023 14:00-0400Body wqifri95.71 kgJosué Evangelista Other [employer] Other 04-13-2023 14:00-0400Diastolic blood gnikzeht11 mm[Hg] Josué Jasso [facility] [employer] Other 04-13-2023 14:00-0400Systolic blood phdfzufb847 mm[Hg] Josué Evangelista Other [facility] [employer] Other 03-15-2023 09:40-0400Diastolic blood mm[Hg] DO Britt Rumschlag Work Phone: [phone] [place], [place] 522[address]03-15-2023 09:40-0400 Heart rate70 /minDO Britt Rumschlag Work Phone: [phone]03-15-2023 09:40-0400 Respiratory rate16 /minDO Britt Rumschlag Work Phone: [phone]03-15-2023 09:40-0400 SaO2% (BldA) [Mass fraction]96 %DO Britt Rumschlag Work Phone: [phone] [place], [place] 522[address]03-15-2023 09:40-0400 Systolic blood mm[Hg]DO Britt Rumschlag Work Phone: [phone] [address] Street03-15-2023 08:47-0400 Body azmgbovulpm10 [degF]DO Britt Rumschlag Work Phone: [phone] [address]03-15-2023 08:12-0400 Inhaled oxygen flow rate10 L/minDO Britt Rumschlag Work Phone: [phone] [place], [place] [address]03-15-2023 07:35-0400 Body plseni066.72 cmDO Britt Rumschlag Work Phone: [phone] [address]03-15-2023 07:35-0400 Body mass index (BMI) [Ratio]32.4 kg/m2DO Britt Rumschlag Work Phone: [phone] [place], [place] [address]03-15-2023 07:35-0400 Body ehnrkh60.8 kgDO Britt Rumschlag Work Phone: [facility]05-04-2022 11:45-0400 Body cvtymm263.72 cmDaniel Elskens Other [employer] Other 05-04-2022 11:45-0400Body mass index (BMI) [Ratio] 32.23 kg/q0Irpyxy Elskens Other [employer] Other 05-04-2022 11:45-0400Body ilfgqy95.16 kgDaniel Elskens Other [employer] Other 03-07-2022 14:30-0500Body dulznk016.72 cmDaniel Elskens Other [employer] Other 03-07-2022 14:30-0500Body mass index (BMI) [Ratio] 32.23 kg/e5Lfppcl Elskens Other [employer] Other 03-07-2022 14:30-0500Body evdzuu56.16 kgDaniel Elskens Other [employer] Other 11-10-2021 11:00-0500Body atfstv065.72 cmDaniel Elskens Other [employer] Other 11-10-2021 11:00-0500Body mass index (BMI) [Ratio] 32.23 kg/s1Sntiqf Elskens Other [employer] Other 11-10-2021 11:00-0500Body fyndsz57.16 kgDaniel Elskens Other [employer] Other 11-10-2021 11:00-0500Diastolic blood gncvdyln56 mm[Hg] Harvey Holt Other [employer] Other 11-10-2021 11:00-0500Systolic blood mm[Hg] Harvey Holt Other [employer] Other Encounters Encounter DateEncounter TypeCare ProviderFacilityStart: 08-29-2025 End: 54-38-4656tdtptmtbcyKmnwgvn Vytautas Giedraitis MDFacility:[facility] [place] Start: 06-09-2025 End: 09-31-8627xkwbultkxjJtsxc Gilda DO Work Phone: [facility] Work Phone: Start: 06-09-2025 End: 87-85-0221Vsqsmhm encounter procedureCharmaine Alex APRN-[facility] Neurology [place] Work Phone: Start: 05-02-2025 End: 17-48-8512vaiqlmqdmkTpjyysc Vytautas Giedraitis MDFacility:[facility] [place] Start: 04-18-2025 End: 49-71-7258rgoytognwxNjobuus Vytautas Giedraitis MDFacility:[facility] [place] Start: 03-23-2025 End: 56-69-3959Ecsmon flowsheetAngela Lowe PA Work Phone: ana [place]Start: 03-23-2025 End: 07-34-2835Vyyfdm flowsheetAngela Lowe PA Work Phone: ana [place]Start: 03-23-2025 End: 69-40-7514Ecokge outpatient visit 25 minutesAngela Lowe PA Work Phone: ana [place]UEComment on above:Lumbosacral radiculopathy (Primary Dx); Ulnar neuropathy at elbow of right upper extremity; Balance problems; Memory change; GIRMA (obstructive sleep apnea)Start: 03-23-2025 End: 97-75-7432cyyshohxplCUYWOA LOWENot AvailableStart: 02-28-2025 End: 93-32-7895mzbhsilvyaLvulwvo Vytautas Giedraitis MDFacility:[facility] [place] Start: 02-01-2025 End: 04-29-7111iojmnnjhtcKZMOBJ LOWENot AvailableStart: 01-31-2025 End: 97-04-8563bpdamjmgkaMevqceb Vytautas Giedraitis MDFacility:[facility] [place] Start: 01-25-2025 End: 26-01-8835eizywdkjicVOXFVN BENEDICTNot AvailableStart: 12-28-2024 End: 11-21-9442Ewixdu flowsheetAngela Lowe PA Work Phone: ana [place]Start: 12-28-2024 End: 35-67-8682Xakpmh flowsheetAngela Lowe PA Work Phone: ana [place]Start: 12-28-2024 End: 65-35-7988Tscfpi outpatient visit 25 minutesAngela Lowe PA Work Phone: ana BEL[place]UEComment on above:Radiculopathy, cervical region (Primary Dx); Memory change; GIRMA (obstructive sleep apnea); Balance problemsStart: 12-28-2024 End: 55-88-0315lovttzxmxkOJRKRL LOWENot AvailableStart: 12-14-2024 End: 26-35-3633Cahnzh outpatient visit 15 minutesHilario Small MD Work Phone: [facility]ito-Urinary SurgeonsComment on above:Benign localized prostatic hyperplasia with lower urinary tract symptoms (LUTS) (Primary Dx)Start: 12-09-2024 End: 57-20-0980Zfbtfbizb encounterAlissa Kelly [facility] Genito- Urinary SurgeonsStart: 09-13-2024 End: 96-89-5626gzicywgpleWgkpwcb Vytautas Giedraitis MDFacility:[facility] [place] Start: 09-06-2024 End: 41-65-7660Trjroo Cindy Sidhu PA Work Phone: [facility] [place] STATE ROUTEStart: 09-06-2024 End: 64-12-2715Stwmln flowsheetAnnadelaida PUENTES Work Phone: [facility] [place] [address] R[address]TEStart: 09-06-2024 End: 62-40-0629Ugobqp outpatient visit 15 minutesCandida PUENTES Work Phone: noms [place] POND ROUTEComment on above:Balance problems (Primary Dx); Hyper reflexia; Lightheadedness; Lumbar back pain; GIRMA (obstructive sleep apnea); Memory changeStart: 09-06-2024 End: 40-45-5844vorcefzxviJCRS HILLNot AvailableStart: 04-22-2024 End: 32-58-5369cuasvnpaytZTMF HILLNot AvailableStart: 12-09-2023 End: 96-96-1999Yvowux outpatient visit 15 minutesHilario Small MD Work Phone: [facility]ito-Urinary SurgeonsComment on above:Benign localized prostatic hyperplasia with lower urinary tract symptoms (LUTS) (Primary Dx)Start: 10-15-2023 End: 15-18-0853jrufgleahjISMZDV N CHIDIMershelly Tulsa HospitalStart: 10-14-2023 End: 81-62-8370apkmxnokxqSFGGC RUMSCHLAGMercy Tulsa HospitalStart: 03-04-2023 End: 06-46-9763vdaphhktsdZT DOCTOR MISCFacility:Y5Miuyd: 02-28-2023 End: 49-68-2730jvyhkdcfhsMhdy Braun Other [employer] Other start: 68-84-6376Fqkotwqra encounterDamichelle EvangelistaMillie E. Hale Hospital NeurosurgeryStart: 02-20-2023 End: 47-84-5424pssqeuyisaAxcq Braun Other [employer] Other start: 69-88-4016Zhgoqs follow up visit related to original pxDamichelle [facility] NeurosurgeryStart: 01-22-2023 End: 30-95-1879Hviqhhijr to same day surgery centerDO Britt Rumschlag Work Phone: [facility]-Sur[facility] Center Main CampusStart: 01-22-2023 End: 55-22-1426uldppxhjxkYrao E BraunFacility:[facility] Start: 01-22-2023 End: 79-53-2820flzurmtypoWN Britt Rumschlag Work Phone: [facility] Work Phone: Start: 01-13-2023 End: 98-02-0618yjqesczywqPkgk E BraunFacility:[facility] Start: 01-13-2023 End: 24-50-2879fqwafkbtrvNF Britt Rumschlag Work Phone: [facility] Work Phone: Start: 01-13-2023 End: 49-10-2511Iydmttv encounter procedureDO Britt Rumschlag Work Phone: [facility] Tsg-Szb-Zfwkpfra Testing Work Phone: Start: 12-06-2022 End: 03-35-1584mvfqihmmbnDarr E BraunFacility:[facility] Start: 12-06-2022 End: 65-56-3976Gnvyjwv encounter procedureDO Britt Rumschlag Work Phone: [facility] C[facility]-XRay Main [place] Work Phone: Start: 08-10-2022 End: 40-65-9368rkmzozxfymYLJVRZ [facility] COMMUNITYFacility:H9Orbsr: 07-08-2022 End: 01-39-0267salnkqjkifIoju C HillFacility:[facility] Start: 07-08-2022 End: 76-97-2605Jkwoupf encounter procedureSt. Mary'S [facility] Ctr-MRI Strub RdStart: 06-21-2022 End: 21-63-9515fcgnodjfvfZgqu C HillFacility:[facility] Start: 06-21-2022 End: 87-83-7640Czihmog encounter procedureSt. Mary'S [facility] Ctr-Lab Main CampusStart: 03-13-2022 End: 44-16-3442jjbjxvknxnUxnher Elskens Other [employer] Other start: 08-92-8476Afgubw outpatient visit 15 minutes Harvey HoltYamila [facility] NeurosurgeryStart: 01-14-2022 End: 18-93-1533hutrtdyglrKdarax Yanet Other [employer] Other start: 32-47-7402Cvompg outpatient visit 15 minutes Harvey StoddardSelect Medical [facility] NeurosurgeryStart: 21-35-1719Sotvocuxj to same day surgery centerMercy HealthStart: 10-16-2021 End: 64-76-4088dvmyimdrsvCcetxs Elskens Other [employer] Other start: 09-19-2021 End: 75-92-0698rawnluxksgLosslm Elskens Other [employer] Other start: 95-61-7634Wjgtxk outpatient new 45 minutes Harvey StoddardSelect Medical [facility] Neurosurgery Procedures DateProcedureProcedure DetailPerforming ClinicianStart: 95-14-1401VSYQKAV POST VOID RESIDUALTimdavid Small MD Work Phone: Start: 82-42-1263Isoxeickjiiih of ulnar nerveDO Britt Rumschlag Work Phone: Start: 36-98-7063Y-ray of cervical spineDO Britt Rumschlag Work Phone: Start: 74-36-3765PJH of head Plan of Treatment DateCare ActivityDetailAuthorStart: 45-37-8874Zdvkjjgto vaccinationInfluenza Vaccine (Season Ended)[facility] HealthcareStart: 06-09-2025 End: 39-89-4035Yecxupz encounter kfbivnshr22/31/2025 11:20 AM EDT Office Visit SAMANTHA ELLIOTT [address] [place] [phone] Charmaine Ackerman NP [address] [place] SAMANTHA KELLYEVUEStart: 03-23-2025 End: 47-59-5907Ocsuozb encounter zydmsnjkz86/14/2025 1:00 PM EDT Office Visit SAMANTHA ELLIOTT [address] [place] [address] Charmaine Castro PA [address] [place], [place] [id number] ArrivedSAMANTHA EARLComment on above:ArrivedStart: 02-01-2025 End: 86-83-8486Mhnbazh encounter vdwiepfih97/25/2025 12:40 PM EDT Office Visit SAMANTHA ELLIOTT [address] [place] [phone] Charmaine Castro PA [address] [place] [address] SAMANTHA CARBAJALBRENTtart: 01-25-2025 End: 82-68-2923Cuqptkh encounter /18/2025 11:00 AM EDT Procedure Visit SAMANTHA ELLIOTT [address] [place] [address] Mani Singer MD [address] [place] [id number] SAMANTHA MENDOZAEVUEStart: 12-28-2024 End: 56-51-0020MJZ 2 ExtremitiesEMG 2 Extremities Neurology Routine Radiculopathy, cervical region Expected: 12/28/2024 (Approximate), Expires: 12/28/2025[facility] Work Phone: comment on above:Expected: 12/28/2024 (Approximate), Expires: 12/28/2025Start: 12-28-2024 End: 09-18-8658Bspxpyv encounter procedureNOPARKWOOD HOSPITAL ROUTEComment on above:ArrivedStart: 12-14-2024 End: 92-88-4152Oprhrma encounter upkzyrlgy34/04/2025 2:15 PM EST Office Visit [facility] [address] [place] [address] [place] [facility] [place] [address] Hilario Small MD [address] [place] [address] [phone] [facility]ito-Urinary SurgeonsStart: 56-51-8951Wpbaw BMI ScreeningAdult BMI ScreeningProFostoria City Hospital SystemStart: 69-52-2784Iejugoc ScreeningTobacco ScreeningProFostoria City Hospital SystemStart: 12-08-2024 End: 88-09-0669Wtvtrwjli specific antigen, diagnosticProstatic specific antigen, diagnostic Lab Routine Benign localized prostatic hyperplasia with lower urinary tract symptoms (LUTS) Expected: 12/08/2024 (Approximate), Expires: 11/08/2025[facility] Work Phone: Comment on above:Expected: 12/08/2024 (Approximate), Expires: 11/08/2025Start: 09-06-2024 End: 33-21-5051Egodsbv encounter rvmxtrbur44/28/2024 1:20 PM EDT Office Visit [facility] [address] [facility] [address] [place] [address] Candida Sidhu PA [address] [place], [place] [phone] ArrivedNOPARKWOOD HOSPITAL ROUTEComment on above: ArrivedStart: 34-94-6886XRYFB-19 Vaccine ( season)COVID-19 Vaccine ( season)[facility] SystemStart: 97-28-3624Acipgccqq vaccination [facility] HealthcareStart: 48-72-9994Bxwclsq CounselingTobacco CounselingProFostoria City Hospital SystemStart: 84-21-5221IBTVS-19 Vaccine ( season)COVID-19 Vaccine ( season)[facility] SystemStart: 25-28-7740Cnhyuazok vaccinationInfluenza VaccineProFostoria City Hospital SystemStart: 01-22-2023 End: 18-30-8471FxomckslcWayne Hospitaltart: 17-51-7842HWF of headMR head/brain wo [facility] Hospitaltart: 07-08-2022 End: 06-05-4295Crynzcn encounter procedureDeparted ClinicalSt. Mary'S Medical Center Ctr-MRI Strub RdStart: 47-23-0555Miiksbspiwwmeq of varicella zoster vaccineZoster (Shingles) Vaccine (1 of 2)[facility] SystemStart: 93-21-5091JYtB,Tdap and Td Vaccines (1 - Tdap)DTaP,Tdap and Td Vaccines (1 - Tdap)[facility] SystemStart: 46-04-3252Qpucv BMI Follow Up PlanAdult BMI Follow Up PlanProMedica Defiance Regional Hospital SystemStart: 46-37-5465Vbpzejeycr Screening Depression ScreeningVidant Pungo Hospitaltart: 27-02-3184Gpycbtxsl for malignant neoplasm of colonNOIA HealthcareStart: 30-38-7687Poumkxf Counseling Tobacco CounselingAdena Fayette Medical CenterPatient referralSt. Mary'S Medical Center Ctr Work Phone: Immunizations Immunization DateImmunizationNotesCare JfpvpokoQaoxrpdt33-71-7649SGHEG-95 mRNA, Comirnaty (Pfizer)[facility]04-07-2021COVID-19 mRNA, Comirnaty (Pfizer)[facility]01-29-2021influenza virus vaccine, unspecified formulationCandida PUENTES Work Phone: [facility] Payers DatePayer CategoryPayerPolicy ID2025Medicare2024Unknown2023 [id number] 2023Medicaid [id number]-olr u7vyn3q9-16q4-4t18-c826-174q7[id number] 2.16.840.1.792410.3.57[id number] 2..840.1.157171.3.579.[id number] 2.16.840.1.217728.3.579.[id number] 2..840.1.525535.3.57[id number] 2.840.1.250981.3.579.2.18206-03-7980Pyymssv6472390 2..840.1.197719.3.579.2.049622-57-0692Dggwhwg1837489 2..840.1.222485.3.579.2.634794-42-0265Dzdxipd0232497 2..840.1.984689.3.579.2.072873-17-6807Stholtq1932356 2.840.1.672373.3.579.2.568394-00-8214Jsrkjss0713835 2.840.1.080042.3.579.2.586819-48-8460Xjtlsrj0187643 2.840.1.471782.3.579.2.475217-37-3117Kpmfmvj421396138 2..840.1.962118.3.579.2.91981-92-8202Cdlpztu595868116 2.840.1.508372.3.579.[id number] 2.16.840.1.719397.3.579.2.88317-71-5379Xtfvljb850088365 2.16.840.1.845614.3.579.2.[id number] 2.16.840.1.968577.3.579.2.06606-62-0962Lktvhsb754222047 2.16.840.1.363001.3.579.2.5823[id number] 2.16.840.1.513731.19 [id number] 2.16.840.1.164916.73Asunuyv00409404 2.16.840.1.862160.3.579.2.345Psuaahh56987474 2.16.840.1.415031.3.579.2.531 Ikhcihx89605169 2.16.840.1.5617[id number] 2.16.840.1.004202.3.579.2.598Buzorsq23509759 2.16.840.1.309675.3.579.2.531 Social History DateTypeDetailFacilityStart: 04-23-2024 End: 62-42-4488Czb Assigned At [facility] [employer] Other start: 10-16-2021 End: 21-51-2848Jxmxtjn smoking status NHISSmoker (findingPike Community Hospitaltart: 41-64-3577Eon Assigned At [facility] Healthcaretart: 01-22-2023 End: 79-90-3116Mgxccra smoking status NHISSmokes tobacco dailyProMedica Health SystemHistory of tobacco useCigarette SmokerNOMS HealthcareStart: 04-23-2024 Tobacco use and exposureUser of smokeless tobaccoNOMS HealthcareStart: 04-23-2024 End: 29-69-0609Gbeodascy beverage intakeCurrent drinker of alcohol (finding) [facility] HospitalAudacious SystemStart: 04-23-2024 End: 70-07-5089Apuesri of Social functionProMedica Defiance Regional Hospital SystemHow often to you have a drink containing alcohol?Monthly or lessNOMS HealthcareHow many standard drinks containing alcohol do you have on a typical day?1 or 2N[facility]S HealthcareHow often do you have 6 or more drinks on 1 occasion?Less than monthlyNOMS HealthcareStart: 52-33-4673Fwt assigned at birthNot on fileProMedica Defiance Regional Hospital SystemStart: 85-61-8293Gkgjuju use and exposureSmokeless tobacco non-user [facility] CenterChildcareUnknownPCleveland Clinic Fairview Hospital SystemStart: 05-03-2021 Alcohol CommentOCCASIONALProMedica Defiance Regional Hospital SystemStart: 08-77-4188PldOfol (finding)[facility] Medical Equipment Procedure CodeEquipment CodeEquipment Original TextEquipment IdentifierDatesBONE 7MM DUO FORTITUDE SERIESFDAStart: 04-96-1192Afgiqg fixation plate, non-bioabsorbable()[id number] FDAStart: 71-22-0730Jwco-screw internal spinal fixation system, non-sterile()[id number] FDAStart: 81-07-6828Rdig- screw internal spinal fixation system, non-sterile()[id number] FDAStart: 69-74-7485DWZZ 7MM DUO FORTITUDE SERIESFDAStart: 47-01-6332ODYS 7MM DUO FORTITUDE SERIESFDAStart: 43-39-2969PNBB 7MM DUO FORTITUDE SERIESFDAStart: 24-26-1042LWXD 7MM DUO FORTITUDE SERIESFDAStart: 10-16-2021 Goals DatePatient GoalDesired Activity/State Clinical Notes 04-01-2021 to 03-23-2025 Note Date & GfxzRktlKnuirjzu79-86-5075 History of Present illness Narrative* DELORIS Betancur - 03/23/2025 1:00 PM EDT Images from the original note were not [...] Review Audit Reviewed by Stef Berg MA (Wad Impregnator) on 03/23/25 at 1314 Medication Order Taking? Sig Documenting Provider Last Dose Status cyclobenzaprine (Flexeril) 5 MG tablet [id number] Yes TAKE 2 TABLETS BY MOUTH AT BEDTIME DELORIS Betancur Active gabapentin (Neurontin) 100 MG capsule [id number] Yes Take 100 mg by mouth in the morning and 100 mg before bedtime. Historical ProviderMD Active latanoprost (Xalatan) 0.005 % ophthalmic solution [id number] Yes Administer 1 drop into both eyes at bedtime DELORIS Steele Active meclizine (Antivert) 25 MG tablet [id number] Yes Take 25 mg by mouth as needed in the morning and 25 mg as needed at noon and 25 mg as needed in the evening for dizziness. DELORIS Steele Active omeprazole (PriLOSEC) [address] capsule [id number] Yes Take 40 mg by mouth in the morning. Take beforemeals. Do not crush or chew. Historical ProviderMD Active rosuvastatin (Crestor) 10 MG tablet [id number] Yes Take 10 mg by mouth Daily [...] time. Memory: MOCA . Speech is normal. Languageis fluent with no aphasia. Attention and concentration are normal. Fund of knowledge is appropriatefor level of education. Cranial Nerves CN II: [...] triceps, wrist extensors, wrist extensors, wrist flexor, aerosol supervisor strength 5/5. LUE Strength deltoid, biceps, triceps, wrist extensors, wrist extensors, wrist flexor, aerosol supervisor strength 5/5. RLE Strength illopsoas, quadriceps, [...] the carotid bulb/proximal ICA. Cervical spine MRI revealedmoderate to significant stenosis C3-C4, largely secondary to a moderate central disc protrusion andnote of focal thin myelomalacia at that level. There is also modest central stenosis at C4-C5 largely secondary to right paracentral focal spondylosis or disc protrusion. Patient had surgery with 10/2021. The patient had an EMG of [...] gabapentin for symptom management. 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 He doeswork midnights. Memory labwork 06/2022 unremarkable. During split [...] is seeing pain management and an MRI cervicalspine was ordered recently. Compliance download 03/23/2024: revealed [...] central stenosis and mild to moderate lateral recessand moderate left sided foraminal narrowing. Brain MRI 07/08/2022: No significant chronic microvascular ischemic change or atrophic changes appreciated. Carotid US 07/2022: no significant stenosis TCD 07/2022: Right JEFFRY not visualized otherwise within normal limits Routine EEG 06/2022: normal. MRA of the neck 10/2021: revealed right moderate narrowing of carotid bulb/proximal ICA, likely dueto atherosclerotic plaque and left mild-moderate narrowing of [...] up in 2-3 months documented in this encounterSaint Louis University HospitalJnqrgwnrqb50-45-2355 History of Present illness Narrative* Hilario Small MD - 12/14/2024 2:15 PM EST Images from the original note were not included. [address] [place] [address] [facility] [address] Patient: Rosa Eastman Date of : 1965 [...] Symptoms have remained stable. Returns today with aPSA which remains stable as outlined below. No [...] past medical history, past social history, past surgicalhistory and problem list. Past Medical History: Diagnosis Date High cholesterol Past Surgical History: Procedure Laterality Date CARPAL TUNNEL RELEASE Right COLONOSCOPY N/A 05/03/2021 Performed by Carlos Olmos MD at [facility] EYE SURGERY TONSILLECTOMY ULNAR NERVE REPAIR [...] day if needed for pain for 14 days(Patient not taking: Reported on 12/14/2024) 0 No [...] going to continue to get this is partof his wellness examine returned to see me [...] you for your understanding. documented in this [facility]01-30-2025 Miscellaneous Notes* Telephone Encounter - Teresa Mendoza LPN - 12/09/2024 1:03 PM EST Contacted the Pt. To remind him to get his PSA drawn before his appt on Friday with MD Drew. No further questions at this time. documented in this encounterAdena Fayette Medical Center01-30-2025 Telephone encounter Note* Telephone Encounter - Teresa Mendoza LPN - 12/09/2024 1:03 PM EST Contacted the Pt. To remind him to get his PSA drawn before his appt on Friday with MD Drew. No further questions at this time. [facility] IntelligentMDx [id number] History of Present illness Narrative* DELORIS Steele - 09/06/2024 1:20 PM EDT Subjective Rosa Eastman is a 59 y.o. [...] Review Audit Reviewed by Sophy Hays MA (Wad Impregnator) on 09/06/24 at 1323 Medication Order Taking? Sig Documenting Provider Last Dose Status cyclobenzaprine (Flexeril) 5 MG tablet [id number] Take 2 tablets (10 mg) by mouth at bedtime DELORIS Steele 09/01/24 2359 gabapentin (Neurontin) 100 MG capsule [id number] Take 100 mg by mouth in the morning and 100 mg before bedtime. Historical ProviderMD Active latanoprost (Xalatan) 0.005 % ophthalmic solution [id number] Administer 1 drop into both eyes at bedtime DELORIS Steele Active meclizine (Antivert) 25 MG tablet [id number] Take 25 mg by mouth 3 (three) times a day as needed for dizziness DELORIS Steele Active omeprazole (PriLOSEC) [address] capsule [id number] Take 40 mg by mouth in the morning. Take before meals. Do not crush or chew.. Historical Provider, Active rosuvastatin (Crestor) 10 MG tablet [id number] Take 10 mg by mouth Daily Historical [...] -admits weakness in hand and trouble with aerosol supervisor -finds himself dropping things -balance is [...] time. Memory: MOCA 22/30. Speech is normal. Languageis fluent with no aphasia. Attention and concentration are normal. Fund of knowledge is appropriatefor level of education. Cranial Nerves CN II: [...] triceps, wrist extensors, wrist extensors, wrist flexor, aerosol supervisor strength 5/5. LUE Strength deltoid, biceps, triceps, wrist extensors, wrist extensors, wrist flexor, aerosol supervisor strength 5/5. RLE Strength illopsoas, quadriceps, [...] the carotid bulb/proximal ICA. Cervical spine MRI revealedmoderate to significant stenosis C3-C4, largely secondary to a moderate central disc protrusion andnote of focal thin myelomalacia at that level. There is also modest central stenosis at C4-C5 largely secondary to right paracentral focal spondylosis or disc protrusion. Patient had surgery with 10/2021. The patient had an EMG of [...] gabapentin for symptom management. 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 He doeswork midnights. Memory labwork 06/2022 unremarkable. During split [...] central stenosis and mild to moderate lateral recessand moderate left sided foraminal narrowing. Brain MRI 07/08/2022: No significant chronic microvascular ischemic change or atrophic changes appreciated. Carotid US 07/2022: no significant stenosis TCD 07/2022: Right JEFFRY not visualized otherwise within normal limits Routine EEG 06/2022: normal. MRA of the neck 10/2021: revealed right moderate narrowing of carotid bulb/proximal ICA, likely dueto atherosclerotic plaque and left mild-moderate narrowing of [...] BUE EMG pending course documented in this encounterSaint Louis University HospitalCdlhozonzs60-11-3669 History of Present illness Narrative* Hilario Small MD - 12/09/2023 3:15 PM EST Images from the original note were not included. [address] [place] [address] [facility] [address] Patient: Rosa Eastman Date of : 1965 Encounter Date: 12/09/2023 History of Present Illness: The patient is a 58 y.o. male, an established patient, and is here for follow- up.. He has a historyof lower urinary tract symptoms. He had been [...] past medical history, past social history, past surgicalhistory and problem list. Past Medical History: Diagnosis Date High cholesterol Past Surgical History: Procedure Laterality Date CARPAL TUNNEL RELEASE Right COLONOSCOPY N/A 05/03/2021 Performed by Carlos Olmos MD at [facility]YE SURGERY TONSILLECTOMY ULNAR NERVE REPAIR [...] day if needed for pain for 14 days(Patient not taking: No sig reported) 0 No [...] you for your understanding. 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 I will see him on an as-needed basis I think he has had a good outcome overall. 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 March,Herniated cervical disc (ICD-10 - M50.20)Patient is continue to do well from his neck operation. March,ervical spondylosis with myelopathy (ICD-10 - M47.12) [facility] Other 03-29-2022 NoteEducation Materials Neurology Paresthesia Paresthesia [...] or sweet foods. General instructions ? Take qygi-tuh-ycnosts and prescription medicines only as told by [...] provider. Document Revised: 11/22/2019 Document Reviewed: 11/05/2018 [employer] Patient Education ? 2020 Tweet Category. Orthopedics Cubital Tunnel Syndrome Cubital tunnel syndrome [...] ? Playing contact sports, (more content not included)...[facility] 01-14-2022 Evaluation note* Encounter Date [...] referral for RUE EMG will be sent Jan,ervical spondylosis with myelopathy (ICD-10 - M47.12) Patient is released from routine follow-up for his neck we will see him on an as-needed basis. [facility] Other 11-10-2021 Evaluation note* Encounter Date Diagnosis Assessment Notes Treatment Notes Treatment Clinical Notes Sep, Cervical spondylosis with myelop athy (ICD-10 - M47.12) With the progression of the patient's symptoms, how it has affected his dizziness , was more spastic and difficulty with his gait, I believe he needs to be considered for surgical intervention on dipak urgent basis. I believe he is a [...] They understand and would like to proceed [facility] Other 09-27-2021 Note [id number]05-23-2021 NoteEducation Materials Orthopedics Wrist Sprain, Adult [...] health care provider. General instructions ? Take lkuh-xnk-lvzebiw and prescription medicines only as told by [...] provider. Document Revised: 10/09/2018 Document Reviewed: 05/15/2017 [employer] Patient Education ? 2020 [employer] Wrist and Forearm Exercises Ask your health care provider which exercises are safe for you. Do exercises exactly as told by your health care provider and adjust them as directed. It is normal to feel mild stretching, pulling, tightness, or discomfort as you do these exercises. Stop right away if you feel sudden pain or your (more content not included)...[facility] noteNo InformationNortEinstein [facility] Other evaluation noteNo assessment information [facility] Work Phone: Evaluation note* Diagnosis [...] symptoms (LUTS)- Primary documented in this encounter [facility] Diagnosis Benign localized prostatic hyperplasia with lower urinary tract symptoms (LUTS)- Primary documented in this encounter [facility]* Diagnosis Radiculopathy, cervical region- Primary [...] Surgical History (R) carpal tunnel release Surgical History(R) Ulnar nerve releaseSurgical Historytonsillectomy Hospitalization HistorySee Above [facility] Other Hospital Discharge instructions Additional Instructions Use [...] Any unusual redness or drainage contact the [facility]St[facility] Work Phone: InstructionsNot on filedocumented in this encounter [facility] SystemInstructionsNot on filedocumented in this encounter [facility] SystemInstructions* Attachments The following attachments cannot be sent through Care Everywhere. * Benign prostatic hyperplasia (enlarged prostate) (Dutch) documented in this encounterAdena Fayette Medical CenterReason for referral (narrative)No reason for referral information availablePike Community Hospital Work Phone: Summary Purpose Family History No Family History Records Found Relationship Condition Age at Onset Recorded Date/T fabio Not Specified Diabetes mellitus Unknown Heart failureUnknownChronic obstructive pulmonary diseaseUnknownfatherHeart failureUnknownRenal failureUnknownMyocardial infarctionUnknownbrotherBorderline diabetes mellitusUnknown Relationship Condition Age at Onset Recorded Date/T fabio Not Specified Heart failure Unknown Chronic obstructive pulmonary diseaseUnknownfatherMyocardial infarctionUnknown Renal failureUnknownDiabetes mellitusUnknownbrotherBorderline diabetes mellitus Unknown Relationship Condition Age at Onset Recorded Date/T fabio mother Heart failure Unknown Chronic obstructive pulmonary diseaseUnknownfatherMyocardial infarctionUnknown Renal failureUnknownDiabetes mellitusUnknownbrotherBorderline diabetes mellitus Unknown Advance Directives No Advanced [...] 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) Referral Organization [facility] urosurgery Referring Provider First Name Harvey Referring Provider Last Name Yanet Referring Provider Specialty Neurosurger y Referred Organization [facility] Referred Provider Mani Singer Ref[place] Address [address] [place],[address] Referred Provider Specialty Neurology Referral Priority Routine [...] section and content) DATE CREATED AUTHOR 02/16/2022 [facility] DATE CREATED AUTHOR AUTHOR'S ORGANIZ ATION 01/23/2023 [facility] DATE CREATED AUTHOR AUTHOR'S ORGANIZ ATION 03/08/2023 [facility] DATE CREATED AUTHOR AUTHOR'S ORGANIZ ATION 10/18/2023 [facility] DATE CREATED AUTHOR AUTHOR'S ORGANIZ ATION 03/24/2025 [facility] DATE CREATED AUTHOR AUTHOR'S ORGANIZ ATION 09/03/2025 [facility] REASON FOR VISIT (unrecogniz ed section and content) ReasonCommentsDizzinessNeck PainBack PainReasonCommentsFollow-upReasonComments Follow-up Care Teams (unrecognized sec tion and content) Team Status: Inactive Member Role Status Dates Candida Alexander PA-C Attending Provider Active LOPEZ Bronsonrigaryy Care ProviderActive Team Status: Inactive Member Role Status Dates NON STAFF Primary Care Provider Active Swathi Swartztencolt ProviderActive Team Status: Active Member Role Status Dates Britt Rex , DO Primary Care Provider Active Team Status: Inactive Member Role Status Dates Britt Gildag , DO Primary Care Provider Active Josué Evangelista MDAttpetty ProviderActiveTeam MemberRelationshipSpecialtyStart DateEnd Date Rummassiellayamila, Britt, DO [address] [place] [address] PCP - Generalmily Medicine11/10/23 Mani Singer MD [address] [place] [address] Referring PhysicianNeurolog11/10/23Team MemberRelationshipSpecialtyStart DateEnd Date Rumschlag, Britt, DO [address] [place] [address] PCP - Generalmily Medicine11/10/23 Mani Singer MD [address] [place] [address] Referring PhysicianNeurolog11/10/23Te MemberRelationshipSpecialtyStart DateEnd Date [facility] [address] [place], [place] PCP - Generalmily Medicine05/03/21Te MemberRelationshipSpecialtyStart DateEnd Date [facility] [address] [place] PCP - Generalmi Medicine05/03/21Te MemberRelationshipSpecialtyStart DateEnd Date [facility] [address] [place] PCP - Generalmily Medicine05/03/21Te MemberRelationshipSpecialtyStart DateEnd Date Britt Goodman DO [address] [place] [address] [facility]/10/23 Mani Singer MD [address] [place] [address] Referring PhysicianNeurolog11/10/23Te MemberRelationshipSpecialtyStart DateEnd Date Britt Goodman DO [address] [place] [address] [facility]11/10/23 Mani Singer MD [address] [place] [address] Referring PhysicianNeurolog11/10/23Team MemberRelationshipSpecialtyStart DateEnd Date CorieBritt wall [address] [place] [address] [facility]11/10/23 Mani Singer MD [address] [place] [address] Referring PhysicianNeurolog11/10/23 Charmaine Castro PA [address] [place] [address] Physician AssistantNeurology02/01/25Team MemberRelationshipSpecialtyStart DateEnd Date NicolaBritt sepulveda DO [address] [place] [address] PCP - [facility] Medicine11/10/23 Mani Singer MD [address] [place] [address] Referring PhysicianNeurolog11/10/23 Charmaine Castro PA [address] [place] [address] Physician AssistantNeurology02/01/25 Team Status: Inactive Member Role Status Dates Britt Goodman DO Primary Care Provider Active Start: June 09, 2025 End: June 09Gissel Trivedi ProviderActiveStart: June 09, 2025 End: June 09, 2025 [...] BE BASED ON THE PRIMARY CLINICAL RECORDS. [facility] [employer] [facility]. provides no warranty or guarantee of the accuracy or completeness of information in this document.
--- OUTSIDE RECORDS SUMMARY | 2025-10-05 07:39 | XMS_ITS | Clinical Summary ---
Author Organization [facility] Address [address] [place] [address], [address] [place] [address] Care Team Providers Care Hammer Adjuster Name Role Phone Rex Britt Primary Care Provider [phone] Allergies Active AllergyReactionsCriticalityNoted DateCommentsBee Venom05/03/2021 swelling Evexxadqijc70/28/2017 Passed out Medications MedicationSigDispense QuantityRefillsLast FilledStart DateEnd DateStatus latanoprost (XALATAN) 0.005 % ophthalmic solution Place 1 drop into both eyes daily10/08/2023ctive omeprazole (PRILOSEC) 40 MG delayed release capsule Take 1 capsule by mouth daily10/08/2023ctive rosuvastatin (CRESTOR) 5 MG tablet Take 1 tablet by mouth dailyActive Active Problems ProblemNoted DateDiagnosed DateBenign localized prostatic hyperplasia with lower urinary tract symptoms (LUTS)09/10/2022 Overview (10/14/2023): 09/10/22: Progressive lower urinary tract [...] trying an alternative medication Social History Tobacco UseTypesPacks/DayYears UsedDateSmoking Tobacco: Every DayCigarettes Smokeless Tobacco: Never Tobacco Cessation:Ready to Q uit: Not Asked; Counseling Given: Not Answered Interpersonal Safety Domain Source: IP Abuse ScreeningAnswerDate RecordedRead- Only, Retired: Physical IuglsVeswut82/06/2023Read-Only, Retired: Verbal Abuse Fiqsyr9810/15/2023Read-Only, Retired: Emotional imcijPjlsrb07/06/2023Read-Only, Retired: Financial YuhrlUkntpz30/06/2023Read-Only, Retired: Sexual abuseDenies 10/15/2023Sex and Gender InformationValueDate RecordedSex Assigned at BirthNot on fileLegal ForRmzo48/13/2023 10:29 AM EDTGender IdentityNot on fileSexual OrientationNot on file Last Filed Vital Signs Vital SignReadingTime TakenCommentsBlood Heelfcmn065/6510/15/2023 10:30 AM EST Gvgdm010810/15/2023 10:30 AM WMREsjlxawymdx30.7 ??C (98 ??F)10/15/2023 10:10 AM ESTRespiratory Jxff781212/16/2022 10:30 AM ESTOxygen Mcvskyjqdx43%10/15/2023 10:30 AM ESTInhaled Oxygen Concentration--Tgnged69.1 kg (214 lb)10/15/2023 8:37 AM EST Zixxso690.7 cm (5' 8 )10/15/2023 8:37 AM ESTBody Mass Index32.5410/15/2023 8:37 AM EST Plan of Treatment Health MaintenanceDue DateLast AehqLiguvzqfXbohdf71/17/1977Depression Screen 1979HIV zhuqrz5906/26/1982Hepatitis C kygmlm7606/26/1985DTaP/Tdap/Td vaccine (1 - Tdap)1986Hepatitis B vaccine (1 of 3 - 19+ 3-dose series)1986 Pneumococcal 50+ years Vaccine (1 of 2 - PCV)06/26/19865887Xbuswkoqpvd14/17/2012 Colorectal Cancer Ilmptc5106/26/2012FIT/FOBT: Average risk2012Fecal-DNA (Cologuard): Average risk2012Sigmoidoscopy/CT pmrxadoaixdt65/17/2012 Shingles vaccine (1 of 2)2017Flu vaccine (#1)5COVID-19 Vaccine ( season)504/, 02/14/2021Hepatitis A vaccineAged OutNo longer eligible based on patient's age to complete this topicHib vaccineAged Out No longer eligible based on patient's age to complete this topicMeningococcal (ACWY) vaccineAged OutNo longer eligible based on patient's age to complete this topicMeningococcal B vaccineAged OutNo longer eligible based on patient's age to complete this topicPolio vaccineAged OutNo longer eligible based on patient's age to complete this topic Insurance Care Teams Team MemberRelationshipSpecialtyStart DateEnd Date Britt Goodman DO [address] [place] [address] PCP - GeneralFamily Tlnuodmv50/13/23
--- OUTSIDE RECORDS SUMMARY | 2025-10-05 07:39 | XMS_ITS | Clinical Summary ---
Author Organization [facility] Address [address] [place] [place] [address] Care Team Providers Care Oven Drier Tender Name Role Phone GildaBritt driscoll Primary Care Provider [phone] Charmaine Castro Unavailable Allergies Active AllergyReactionsCriticalityNoted DateCommentsBee Venom12/28/2024 Wfpcuvqlezv71/13/2024 Medications MedicationSigDispense QuantityRefillsLast FilledStart DateEnd DateStatus gabapentin (Neurontin) 100 MG capsule Take 200 mg by mouth in the morning and 200 mg before bedtime.Active rosuvastatin (Crestor) 10 MG tablet Take 10 mg by mouth DailyActive omeprazole (PriLOSEC) [address] capsule Take 40 mg by mouth in the morning. Take before meals. Do not crush or chew. Active latanoprost (Xalatan) 0.005 % ophthalmic solution Administer 1 drop into both eyes at bedtimeActive meclizine (Antivert) 25 MG tablet Take 25 mg by mouth as needed in the morning and 25 mg as needed at noon and 25 mg as needed in theevening for dizziness.Active cyclobenzaprine (Flexeril) 5 MG tablet Indications:Radiculopathy, cervical regionTAKE 2 TABLETS BY MOUTH AT BEDTIME 30 tablet 5Active Active Problems ProblemNoted DateDiagnosed DateUlnar nerve entrapment at right ulnar groove 04/23/2024aresthesia and pain of oxbguuxva39/14/2024adiculopathy, cervical rslham5704/23/2024arpal tunnel syndrome, right upper limb04/23/2024Loss of kctcksf4204/23/2024Hyper imhyhlkk50/14/2024Lesion of ulnar nerve, right upper limb 04/23/2024Memory cvwfqw6204/23/2024 Overview (04/23/2024): Patient has been experiencing confusion and forgetfulness, which is due to his underlying intellectual disability/developmental delay per neuropsychology evaluation 01/20/2024. His symptoms are exacerbated when he is not compliant with CPAP. He also has mild depression and anxiety and chronic back pain that likely exacerbated his baseline struggles. 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 He doeswork midnights. MOCA 01/28/2023: (MOCA 06/19/2022: ). Memory labwork 06/2022 unremarkable. During split night study, patient have GIRMA as well as mixed and central apnea. He has been started on CPAP and has improved his compliance. GIRMA (obstructive sleep apnea)04/23/2024 Overview (04/23/2024): Treated with CPAP. 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 Uwvnblltoij03/14/2024 Overview (04/23/2024): NEW: Patient with paresthesia to lower extremities bilaterally ongoing for over a year. PCP startedpatient on gabapentin for symptom management. Will obtain a BLE EMG to assess for peripheral nerve process that may be contributing to symptoms Mild intellectual rqleogggpk87/14/2024Other chronic pain04/23/2024 Family History Medical HistoryRelationNameCommentsDepressionFatherDiabetesFatherHeart disease FatherHyperlipidemiaFatherHypertensionFatherDepressionMotherHeart diseaseMother HyperlipidemiaMotherHypertensionMotherAsthmaSiblingCancerSiblingDepression SiblingHyperlipidemiaSiblingHypertensionSiblingRelationNameStatusCommentsFather MotherSibling Social History Tobacco UseTypesPacks/DayYears UsedDateSmoking Tobacco: Every DayCigarettes Smokeless Tobacco: CurrentAlcohol UseStandard Drinks/WeekCommentsYes0 (1 standard drink = 0.6 oz pure alcohol)AUDIT-CAnswerDate RecordedQ1: How often do you have a drink containing alcohol?Monthly or less04/23/2024Q2: How many drinks containing alcohol do you have on a typical day when you are drinking?1 or 2 04/23/2024Q3: How often do you have six or more drinks on one occasion?Less than vgfyygt7804/23/2024Sex and Gender InformationValueDate RecordedSex Assigned at BirthNot on fileLegal PwcSpzy0801/22/2023 8:00 PM EDTGender IdentityNot on file Sexual OrientationNot on file Last Filed Vital Signs Vital SignReadingTime TakenCommentsBlood Nutaihlu966/8605 1:13 PM EDT Pafjt731109/06/2024 1:16 PM EDTTemperature--Respiratory Fpet2101 1:16 PM EDTOxygen Viojcwzufd31%09/06/2024 1:16 PM EDTInhaled Oxygen Concentration-- Bzdmoq35.5 kg (204 lb)03/23/2025 1:13 PM JMLIspwht045.7 cm (5' 8 )03/23/2025 1:13 PM EDTBody Mass Index31.02003/23/2025 1:13 PM EDT Plan of Treatment Not on file Insurance * Guarantor: Allen Eastman TypeRelation to PatientDate of BirthPhone Billing AddressPersonal/JbktqqBjrk1965 [address] [address] Care Teams Team MemberRelationshipSpecialtyStart DateEnd Date Britt Goodman DO [address] [place] [address] PCP - GeneralFamily Medicine11/10/23 Charmaine Castro PA [address] [place] [address] Physician AssistantNeurology02/01/25
--- OUTSIDE RECORDS SUMMARY | 2025-10-05 07:39 | XMS_ITS | Clinical Summary ---
[facility] Organization [facility] Address [id number] [place] [address] Care Team Providers Care Experimental Mechanic Spacecraft Name Role Phone Services, [facility] Primary Care Provider Allergies Active AllergyReactionsCriticalityNoted DateCommentsBee Venom Protein (Honey Bee)05/03/2021 swelling Kdukibmmebk29/28/2017 Passed out Medications MedicationSigDispense QuantityRefillsLast FilledStart DateEnd DateStatus naproxen (NAPROSYN) 500 mg tablet take 1 tablet by mouth twice a day if needed for pain for 14 zmpw399 Active latanoprost (XALATAN) 0.005 % ophthalmic solution place 1 drop into both eyes every evening as xeyfwzon21/22/2022ctive rosuvastatin (CRESTOR) 5 mg tablet Take 1 tablet (5 mg total) by mouth in the morning.08/29/2022ctive cyclobenzaprine (FLEXERIL) 5 mg tablet Take 1 tablet (5 mg total) by mouth once daily at bedtime.12/02/2023ctive Active Problems ProblemNoted DateDiagnosed DateBenign localized prostatic hyperplasia with lower urinary tract symptoms (LUTS)09/10/2022 Overview (12/14/2024): His urinary symptoms have remained stable. PSA normal. He was going to continue to get this is partof his wellness examine returned to see me if symptoms progress Assessment & Plan (10/23/2022 10:04 AM EST): To call if he changes his mind regarding trying an alternative medication Family History Medical HistoryRelationNameCommentsDiabetesFatherHeart diseaseFatherProstate cancerMaternal GrandfatherHeart diseaseMotherHyperlipidemiaMotherCancerSister RelationNameStatusCommentsFatherMaternal GrandfatherMotherSisterDeceased Social History Tobacco UseTypesPacks/DayYears UsedDateSmoking Tobacco: Every DaySmokeless Tobacco: Never Tobacco Cessation:Ready to Q uit: Not Asked; Counseling Given: Not Answered Alcohol UseStandard Drinks/WeekCommentsYes0 (1 standard drink = 0.6 oz pure alcohol)OCCASIONALChildcareAnswerDate QjydnaxrWnhrlgjiuZxsrwby73/12/2019 EmploymentAnswerDate JuhnfpptEemefpwzdtHnhysle66/12/2019Hunger ScreeningAnswer Date RecordedWithin the past 12 months we worried whether our food would run out before we got money to buy more.Never True12/14/2024Within the past 12 months the food we bought just didn't last and we didn't have money to get more.Never True12/14/2024Purpose - LifeAnswerDate RecordedPurpose and direction in life Wjtaazm6712/21/2020ex and Gender InformationValueDate RecordedSex Assigned at BirthNot on fileLegal EbcDfof3107/12/2015 12:13 AM EDTGender IdentityNot on file Sexual OrientationNot on file Last Filed Vital Signs Vital SignReadingTime TakenCommentsBlood Rreqzszd095/78012/14/2024 2:15 PM EST Ynhka954912/14/2024 2:15 PM HKOXvkdicjtbuq92.7 ??C (98 ??F)05/03/2021 7:47 AM EDT Respiratory Vchu359505/03/2021 10:38 AM EDTOxygen Qsswxwqrlk74%05/03/2021 10:38 AM EDTInhaled Oxygen Concentration--Nmjvza04.5 kg (204 lb)12/14/2024 2:15 PM EST Ybffnp335.7 cm (5' 8 )12/14/2024 2:15 PM ESTBody Mass Index31.02012/14/2024 2:15 PM EST Plan of Treatment Health MaintenanceDue DateLast DoneCommentsTobacco Xdukawxefs1967 Depression Tlxayznxb55/17/1979Adult BMI Follow Up Plan1985DTaP,Tdap and Td Vaccines (1 - Tdap)1986Zoster (Shingles) Vaccine (1 of 2)2017COVID- 19 Vaccine (3 - 2024- season)/, 02/14/2021Influenza Vaccine 07/11/2025dult BMI Fcsulgxuy43/04/425582/02/2025Tobacco Ttlqvwzfb98/04/2026 12/14/2024 Medical Devices Not on file Insurance [address] [place] [address] Care Teams Team MemberRelationshipSpecialtyStart DateEnd Date Services, [facility] [address] [place] PCP - GeneralFamily Medicine05/03/21
--- NOTE | 2025-10-05 07:45 | P.CN_ITS ---
Consult Note: HPI Data of Consult Patient: known to practice within the last 3 years Consult date: 10/05/25 Requesting Physician: Wilma Bhardwaj NP Primary Care Provider: Non-Staff Physician, MD Consult Narrative Reason for consult: low back pain Narrative: Homer Eastman a pleasant 60 year old male presents for evaluation/management of chronic low back pain > 3 years unresponsive to > 6 weeks of PT/HEP, heat, ice, tylenol, nsaids. prior mri consistent with multilevel facet arthropathy, ddd, stenosis. recently underwent repeat bilateral L4-5 L5-S1 facet RFA with >80% improvement in pain and functional ability ongoing. pain today 0/10 LOS 16%. utilizing advil prn, flexeril, and gabapentin. denies side effects. cc:: CC: Wilma Bhardwaj NP Review of Systems ROS Musculoskeletal Reports: joint pain (bilateral knees); Denies: back [facility] (Updated 04/20/25 @ 14:55 by Wilma Bhardwaj NP) Glaucoma ?H40.9 - Unspecified glaucoma (ICD-10) Obesity ?E66.9 - Obesity, unspecified (ICD-10) Smoker ?F17.200 - Nicotine dependence, unspecified, uncomplicated (ICD-10) Low back pain ?M54.50 - Low back pain, unspecified (ICD-10) Neck pain ?M54.2 - Cervicalgia (ICD-10) Osteoarthritis ?M19.90 - Unspecified osteoarthritis, unspecified site (ICD-10) Bipolar depression ?F31.9 - Bipolar disorder, unspecified (ICD-10) Carpal tunnel syndrome ?G56.00 - Carpal tunnel syndrome, unspecified upper limb (ICD-10) Chronic GERD ?K21.9 - Gastro-esophageal reflux disease without esophagitis (ICD-10) Acid reflux ?K21.9 - Gastro-esophageal reflux disease without esophagitis (ICD-10) Sleep apnea ?G47.30 - Sleep apnea, unspecified (ICD-10) High cholesterol ?E78.00 - Pure hypercholesterolemia, unspecified (ICD-10) Surgical History H/O neck surgery ?Z98.890 - Other specified postprocedural states (ICD-10) H/O elbow surgery ?Z98.890 - Other specified postprocedural states (ICD-10) H/O carpal tunnel repair ?Z98.890 - Other specified postprocedural states (ICD-10) Hx of tonsillectomy ?Z90.89 - Acquired absence of other organs (ICD-10) H/O eye surgery ?Z98.890 - Other specified postprocedural states (ICD-10) Meds Home Medications and Allergies Home Medications ?Medication ?Instructions ?Recorded ?Confirmed ?Type epinephrine 0.3 mg/0.3 mL 0.3 mg IM DAILY PRN anaphyla xis 08/30/23 08/29/25 History injection, auto-injector latanoprost 0.005 % eye drops 1 drp ophthalmic (eye) . QHS 08/30/23 08/29/25 History omeprazole 40 mg capsule,delayed 40 mg PO QAM 08/30/23 08/29/25 History release rosuvastatin 5 mg tablet 5 mg PO DAILY 08/30/2308/29 History cyclobenzaprine 5 mg tablet 5 mg PO DAILY 12/08/23 History famotidine 20 mg tablet mg 04/19/24 History gabapentin 100 mg capsule See Rx Instructions .Route 0 04/07/25 08/29/25 Rx .COMPLEX #120 caps gabapentin 100 mg capsule 200 mg (2 x 100 mg) PO BID # 120 05/11/25 08/29/25 Rx caps gabapentin 100 mg capsule 200 mg (2 x 100 mg) PO BID # 120 07/19/25 08/29/25 Rx caps gabapentin 100 mg capsule 200 mg (2 x 100 mg) PO BID # 120 09/19/25 Rx caps Allergies Allergy/AdvReac Type Severity Reaction Status Date / Time bee venom protein (honey bee) Allergy Severe UNKNOWN Verified 05/02/25 07:21 Penicillins Allergy Severe LOSS OF Verified 05/02/25 07:21 CONCIOUSNESS Exam Constitutional Documenting provider has reviewed patient's vital signs: yes Common normals: no apparent distress, oriented x3 and alert General appearance: cooperative HENCA Common normals: normocephalic, hearing grossly normal bilaterally and moist oral mucous membranes Head and scalp: normocephalic Eye Common normals: PERRL Pupil: PERRL Neck & C-Spine Common normals: full ROM General: normal visual inspection Chest Common normals: inspection of chest normal Respiratory Common normals: normal respiratory effort, no retractions and no use of accessory muscles Back & Pelvis Lumbar spine/lower back: ROM limited and straight leg raise negative bilaterally; no pain with ROM and no lumbar spinal tenderness Other: strength 5/5 in BLE sensation intact BLE Neuro Common normals: oriented x3 Sensorium/orientation: alert Psych Common normals: mental status grossly normal, thought process normal, cooperative, affect normal, speech normal and activity/motor behavior normal Speech: normal speech Thought process: normal thought process Results Additional Findings Additional findings: If on a controlled substance or opioids, I have checked an [place] report on this patient and there are no aberrancies noted in the prescribing history.??If on a controlled substance or opioid a drug screen was completed and reviewed within the last year, and if there has not been a drug screen completed we ordered one today to monitor higher risk, state monitored pain medication use. As part of providing excellent, safe, comprehensive care, the following was completed at our patient's visit: 1. A medication reconciliation and review to ensure accurate knowledge of current/active medications, including asking our patients to inform us about any [id number] medications or herbal remedies/nutritional supplements/alternative remedies. 2. A review to specifically ensure our patients have had annual screening for screening for depression, screening for tobacco use, and screening for unhealthy alcohol use. For concerning screenings had a discussion with the patient, provided patient education, and recommended follow-up with primary care provider when appropriate. If patient noted with a risk of falling, they received education on strength, gait, and balance training to prevent future risk of falling. Portions of this note may have been carried over from the previous visit and updated as appropriate. Please note this office utilizes paper charting in addition to the electronic medical record. A list of current medications, vitals, and PMH is available there as the clinical staff outside of myself do not have access to [employer] charting during the clinic day operations. As part of providing quality comprehensive care the current medications, vitals, and PMH were reviewed in the paper chart. Assessment and Plan Assessment and Plan (1) Lumbar spondylosis: Assessment and Plan: 08-29- bilateral L4-5 L5-S1 facet RFA >80% improvement in facet mediated low back pain Plan The patient has had over 3 months of moderate to severe low back pain with functional impairment and inadequate response to conservative care including NSAIDS (unless there are contraindication such as concurrent blood thinners), multiple oral or topical pain medications, and home exercise program/physical therapy.? Patient has completed >6 weeks of guided home exercise program and/or formal physical therapy program without relief of their symptoms.? I have reviewed the imaging of the lumbar spine and no red flags were identified.? The imaging reveals radiographic findings consistent with lumbar spondylosis and lumbar DDD The Oswestry Disability Index was completed, and the patient scored a 16%.? pain well controlled at this time maintain current medication regimen f/u 6 months, sooner if needed
== END 2025-10-05 07:37 | disposition home or self-care (01) ==
LOC: PM 07:37
PROVIDERS: Visit Provider Nurse Practitioner
DX: M47.816 Spondylosis without myelopathy or radiculopathy, lumbar region (principal)
CPT/HCPCS: G0463